=== PATIENT | female | born 2000 | race Caucasian/White ===

== ENCOUNTER 2023-12-13 17:51 | Emergency (ER) | payer OTHER, SELFPAY ==
[2023-12-13 17:55] VITALS: BP 166/96; PULSE 86; TEMP 37.2; O2SAT 100; BMI 37.2
--- NOTE | 2023-12-13 18:08 | ECG_ITS ---
The 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
--- NOTE | 2023-12-13 18:31 | XR_ITS ---
The [address] [address] Patient Name: ROSETTE ALBA MRN: [id number] date: 2000 Sex: F Assigned Patient Location: ER Current Patient Location: ED.MAIN Accession/Order Number: [id number] Exam Date: 12/13/2023 18:52 Report Date: 12/13/2023 20:00 At the request of: ALICE VAZQUEZ Procedure: XR chest 2V EXAM: XR chest 2V HISTORY: pain COMPARISON: None. TECHNIQUE: Upright PA and lateral chest x-ray FINDINGS: The heart is not enlarged and the vasculature is not distended. No acute infiltrate, effusion or pneumothorax is identified. The osseous structures are grossly intact. XR/XR chest 2V IMPRESSION: No acute infiltrate or evidence of cardiac decompensation. Electronically authenticated by: ANGELA CH Date: 12/13/2023 20:00
--- NOTE | 2023-12-13 19:26 | ED_ITS ---
HPI - Chest Pain General Chief Complaint: Chest Pain Stated Complaint: CHEST PAIN Time Seen by Provider: 12/13/23 18:20 Source: patient Mode of arrival: walk-in Limitations: no limitations History of Present Illness HPI narrative: This 23-year-old female presents for evaluation of left chest pain that started approximately 7 hours ago. It is midsternal in nature and she states it radiates into her back. She is not having any nausea or vomiting. She has not taken anything for pain. She denies any fever or cough. She denies tobacco use. She states that the pain started in her pelvis 3 weeks ago but that pain has resolved. She is currently on her menstrual period and recently finished her menstrual period. She denies the possibility of . She has no specific abdominal pain. She denies any dizziness or syncope. Related Data Allergies Allergy/AdvReac Type Severity Reaction Status Date / Time No Known Drug Allergies Allergy Verified 12/13/23 17:55 Review of Systems ROS Status of ROS 10 or more systems reviewed and unremark able except as noted in history and below PFSH PFSH Social History Little interest or pleasure in doing things: not at all Feeling down, depressed, or hopeless: not at all Exam Narrative Exam Narrative: Vital signs and Nursing Notes reviewed: Patient is afebrile with a normal pulse, blood pressure is elevated at 166/96, she is not hypoxic with pulse ox of 100% on room air General: Awake, alert, oriented, no acute distress, lying comfortably on the stretcher HEENT: Normocephalic atraumatic, mucous membranes are moist and pink, eyes are clear, normal conjunctiva, vision is grossly intact Neck: Supple, no meningeal signs, no anterior or posterior cervical lymphadenopathy Chest: Lungs are clear to auscultation with good air entry, there is no wheezing rhonchi or rales appreciated no accessory muscle use, patient is speaking in complete sentences-no chest wall tenderness to palpation CVS: Regular rate and rhythm S1-S2, no murmurs rubs or gallops, pulses are brisk and equal bilaterally, mild tenderness to palpation of the anterior chest wall ABD: Soft, nondistended, mild tenderness in the right lower quadrant with no rebound guarding rigidity, negative Rovsing sign Extremities: Moving all extremities, no lower extremity tenderness or swelling noted, negative Homans' sign, pulses are brisk and equal bilaterally Skin: Normal in appearance without rash,pallor, petechiae or purpura Neuro: No focal deficits Constitutional Vital Signs, click to edit/add: Last Vital Signs Temp 98.9 F 12/13/23 17:55 Pulse 86 12/13/23 17:55 Resp 18 12/13/23 17:55 BP 166/96 H 12/13/23 17:55 Pulse Ox 100 12/13/23 17:55 O2 Del Method Room Air 12/13/23 17:55 Course Vital Signs Vital signs: Vital Signs Temperature 98.9 F 12/13/23 17:55 Pulse Rate 86 12/13/23 17:55 Respiratory Rate 18 12/13/23 17:55 Blood Pressure 166/96 H 12/13/23 17:55 Pulse Oximetry 100 12/13/23 17:55 Oxygen Delivery Method Room Air 12/13/23 17:55 Temperature 98.9 F 12/13/23 17:55 Pulse Rate 86 12/13/23 17:55 Respiratory Rate 18 12/13/23 17:55 Blood Pressure 166/96 H 12/13/23 17:55 Pulse Oximetry 100 12/13/23 17:55 Oxygen Delivery Method Room Air 12/13/23 17:55 MDM - Chest Pain MDM Narrative Medical decision making narrative: This 23-year-old female, non-smoker presents for evaluation of midsternal chest pain. She states that 3 weeks ago she had pelvic pain which is mostly resolved. She still has some mild right lower quadrant pain but her abdomen is soft. She states her chest pain started earlier today. She has mild shortness of breath. She denies any fever or cough. EKG done upon arrival was a sinus rhythm with no acute changes. She was given a dose of aspirin and a GI cocktail with mild clinical improvement. Cardiac workup including CBC with differential, comprehensive metabolic profile, D-dimer and troponin was ordered as well as a chest x-ray. Her workup is normal. She is hemodynamically stable. I explained to her I suspect her symptoms are more likely GI related than related to a cardiac issue. She will be discharged home with a prescription for Pepcid. I encouraged her to avoid caffeine and hot spicy food for the next several days, drink plenty of fluids and follow-up closely with her family physician. She is in agreement with this plan. Medical Records Data Medical records narrative: The [address] [address] XRay Report Signed Patient: ROSETTE ALBA MR#: [id number] : 2000 Acct:[id number] Age/Sex: 23 / F ADM Date: 12/13/23 Loc: ER Attending Dr: Ordering Physician: Alice Royal Date of Service: 12/13/23 Procedure(s): XR chest 2V Accession Number(s): [id number] cc: OBDULIA MICHELLE ; Alice Royal~ The [address] [address] Patient Name: ROSETTE ALBA MRN: [id number] date: 2000 Sex: F Assigned Patient Location: ER Current Patient Location: ED.MAIN Accession/Order Number: [id number] Exam Date: 12/13/2023 18:52 Report Date: 12/13/2023 20:00 At the request of: ALICE ROYAL Procedure: XR chest 2V EXAM: XR chest 2V HISTORY: pain COMPARISON: None. TECHNIQUE: Upright PA and lateral chest x-ray FINDINGS: The heart is not enlarged and the vasculature is not distended. No acute infiltrate, effusion or pneumothorax is identified. The osseous structures are grossly intact. XR/XR chest 2V IMPRESSION: No acute infiltrate or evidence of cardiac decompensation. Electronically authenticated by: ANGELA CH Date: 12/13/2023 20:00 Lab Data Labs: Lab Results 12/13/23 Range/Units 19:40 WBC 9.4 (4.0-11.0) 10^3/uL RBC 4.57 (4.20-5.40) 10^6/uL Hgb 12.7 (12.0-16.0) g/dL Hct 38.2 (36.0-48.0) % MCV 83.6 (81.0-99.0) fL MCH 27.8 (26.7-34.0) pg MCHC 33.2 (29.9-35.2) g/dL RDW 14.2 (11.0-15.0) % Plt Count 252 (150-450) 10^3/uL MPV 10.9 (9.5-13.5) fL Neut % (Auto) 67.3 (43.0-75.0) % Lymph % (Auto) 24.9 (20.5-60.0) % [place] % (Auto) 6.2 (1.7-12.0) % Eos % (Auto) 1.1 (0.9-7.0) % Baso % (Auto) 0.2 (0.2-2.0) % Neut # (Auto) 6.3 (1.4-6.5) 10^3/uL Lymph # (Auto) 2.3 (1.2-3.8) 10^3/uL [place] # (Auto) 0.6 (0.3-0.8) 10^3/uL Eos # (Auto) 0.1 (0.0-0.7) 10^3/uL Baso # (Auto) 0.0 (0.0-0.1) 10^3/uL Abs Immat Gran (auto) 0.03 (0.00-0.03) 10^3/uL Imm/Tot Granulo (auto) 0.3 (0.0-0.5) % D-Dimer 0.22 (<=0.59) mg/L FEU Sodium 141 (136-145) mmol/L Potassium 4.2 (3.5-5.1) mmol/L Chloride 104 (98-107) mmol/L Carbon Dioxide 26.8 (21.0-32.0) mmol/L Anion Gap 14.4 BUN 17.0 (7.0-18.0) mg/dL Creatinine 0.97 (0.55-1.02) mg/dL Est GFR ( Amer) >60 (>=60 mL/min/1.73m^2) Est GFR (Non-Af Amer) >60 (>=60 mL/min/1.73m^2) BUN/Creatinine Ratio 17.5 Glucose 98 (74-106) mg/dL Calcium 9.3 (8.5-10.1) mg/dL Total Bilirubin 0.4 (0.2-1.0) mg/dL AST 20 (15-37) U/L ALT 20 (14-59) U/L Alkaline Phosphatase 97 (46-116) U/L Troponin I High Sens <4.0 L (4.0-51.3) pg/mL Total Protein 7.5 (6.4-8.2) g/dL Albumin 3.4 (3.4-5.0) g/dL Globulin 4.1 g/dL Albumin/Globulin Ratio 0.8 ECG Data Attestation: I personally reviewed and interpreted this ECG as follows: (Sinus rhythm 84 bpm, normal axis, normal intervals, no acute ST segment elevation or T wave inversion) Heart Score History: Slightly/Non-Suspicious ECG: Normal Age: <45 years Risk Factors: No Risk Factors Troponin: <Normal Limit Total Heart Score Recommendations & Risks:: 0 Discharge Plan Discharge Chief Complaint: Chest Pain Clinical Impression: Atypical chest pain Patient Disposition: Home, Self-Care Time of Disposition Decision: 20:34 Condition: Good Print Language: Libyan Instructions: Noncardiac Chest Pain (ED) Referrals: OBDULIA MICHELLE [Primary Care Provider] - 1 week
[2023-12-13] MEDS: ASPIRIN 81 MG TAB.CHEW 324 MG PO (19:46)
[2023-12-13] MEDS: lidocaine HCL 15 ML, MAG HYDROX/ALUMINUM HYD/SIMETH 30 ML, HYOSCYAMINE SULFATE 0.25 MG PO (19:46)
[2023-12-13 19:55] LABS: Basophils Percent Auto 0.2 % (0.2-2.0); Eosinophils Absolute Auto 0.1 10^3/uL (0.0-0.7); Eosinophils Percent Auto 1.1 % (0.9-7.0); Hematocrit 38.2 % (36.0-48.0); Hemoglobin 12.7 g/dL (12.0-16.0); Immature Granulocytes Abs Auto 0.03 10^3/uL (0.00-0.03); Immature Granulocytes Pct Auto 0.3 % (0.0-0.5); Lymphocytes Absolute Auto 2.3 10^3/uL (1.2-3.8); Lymphocytes Percent Auto 24.9 % (20.5-60.0); Mean Corpuscular HGB Conc 33.2 g/dL (29.9-35.2); Mean Corpuscular Hemoglobin 27.8 pg (26.7-34.0); Mean Corpuscular Volume 83.6 fL (81.0-99.0); Mean Platelet Volume 10.9 fL (9.5-13.5); Monocytes Absolute Auto 0.6 10^3/uL (0.3-0.8); Monocytes Percent Auto 6.2 % (1.7-12.0); Neutrophils Absolute Auto 6.3 10^3/uL (1.4-6.5); Neutrophils Percent Auto 67.3 % (43.0-75.0); Platelet Count 252 10^3/uL (150-450); Red Blood Count 4.57 10^6/uL (4.20-5.40); Red Cell Distribution Width 14.2 % (11.0-15.0); White Blood Count 9.4 10^3/uL (4.0-11.0)
[2023-12-13 20:09] LABS: D Dimer 0.22 mg/L FEU (<=0.59)
[2023-12-13 20:10] LABS: Anion Gap 14.4
[2023-12-13 20:12] LABS: Alanine Aminotransferase 20 U/L (14-59); Albumin Globulin Ratio 0.8; Albumin Level 3.4 g/dL (3.4-5.0); Alkaline Phosphatase 97 U/L (46-116); Aspartate Amino Transferase 20 U/L (15-37); BUN Creatinine Ratio 17.5; Bilirubin Total 0.4 mg/dL (0.2-1.0); Calcium 9.3 mg/dL (8.5-10.1); Carbon Dioxide 26.8 mmol/L (21.0-32.0); Chloride 104 mmol/L (98-107); Estimated GFR (African America >60 (>=60 mL/min/1.73m^2); Estimated GFR (Non-African Ame >60 (>=60 mL/min/1.73m^2); Globulin 4.1 g/dL; Glucose 98 mg/dL (74-106); Potassium 4.2 mmol/L (3.5-5.1); Sodium 141 mmol/L (136-145); Total Protein 7.5 g/dL (6.4-8.2); Troponin I High Sensitivity <4.0 pg/mL (4.0-51.3)
== END 2023-12-13 20:48 | disposition home or self-care (01) ==
PROVIDERS: Emergency Provider Emergency Medicine; PCP Family Medicine
DX: R07.89 Other chest pain (principal)
CPT/HCPCS: 36415; 71046; 80053; 84484; 85025; 85378; 93005; 99285

== ENCOUNTER 2024-01-06 09:48 | Outpatient (OUT) | payer OTHER, SELFPAY ==
--- NOTE | 2024-01-06 09:52 | US_ITS ---
[address] [address] Patient Name: ROSETTE ALBA MRN: [id number] date: 2000 Sex: F Assigned Patient Location: Current Patient Location: Accession/Order Number: [id number] Exam Date: 01/06/2024 10:00 Report Date: 01/07/2024 04:45 At the request of: LILIANE KOVACS Procedure: US OB transvaginal EXAMINATION: US OB transvaginal HISTORY: Missed menses, Bleeding In Early COMPARISON: No relevant comparison available. FINDINGS: GESTATIONAL SAC: Present YOLK SAC: Present POLE: Present CARDIAC: Present. UTERUS: Normal size and appearance. OVARIES: Right: Corpus lutein cyst. Left: Normal. CERVIX: Closed, but length not measured.. CUL-DE-SAC: Normal. OTHER: None. AGE BY LMP: 6 weeks 4 days LYNDSAY BY LMP: 08/27/2024 AGE BY US CRL: 6 weeks 1 day LYNDSAY BY US CRL: 08/30/2024 US/US OB transvaginal IMPRESSION: 1. Single live intrauterine . Electronically authenticated by: OBDULIA EMERY Date: 01/07/2024 04:45
--- OUTSIDE RECORDS SUMMARY | 2024-01-06 10:05 | XMS_ITS | CCD ---
Author Organization [facility] Care Team Providers Care Loadmaster Name Role Phone SOFÍA SHARLA Admitting Unavailable EBWANDA SHARLA Attending Unavailable OBDULIA ONEIL Referring Unavailable OBDULIA ONEIL Primary Care Unavailable GA Procedure Practitioner Unavailab SHARLA Singh Surgeon Unavailable GA Procedure Practitioner Unavailab AREN Ferguson Surgeon Unavailable DO Obdulia Oneil Primary Care Provider DO Radha Molina Attending Provider [phone] MD Jennie Smith Admit Provider MD Jennie Smith Attending Provider Spasic, TANGLED YARN WORKER-C Nataly Torres Attending Provider Spasic, TANGLED YARN WORKER-C Nataly Torres Primary Care Provider [phone] DO Marcello Hudson Attending Provider CORRINA DHALIWAL Attending Unavailable CORRINA DHALIWAL Consulting Unavailable REQUEST, NONE LISTED Primary Care Unavaila ble CORRINA DHALIWAL Admitting Unavailable FINA .YNES Consulting Unavailjanie JOHNSON ., DR SIMENTAL Admitting Unavailable REQUEST, NONE LISTED Primary Care Unavaila ramona JOHNSON ., DR SIMENTAL Attending Unavailable HAY ., DR SIMENTAL Consulting Unavailable PETRA SALCIDO Consulting Unavailable MARKER ., DR DOLL Admitting Unavailable MARKER ., DR DOLL Attending Unavailable MARKER ., DR DOLL Consulting Unavailable REQUEST, NONE LISTED Primary Care Unavaila ble NANCI COULTER Consulting Unavailable CORRINA DHALIWAL Attending Unavailable CORRINA DHALIWAL Consulting Unavailable REQUEST, NONE LISTED Primary Care Unavaila CORRINA Cuevas Admitting Unavailable PILI MIGUEL Consulting Unavailable BETHANIE ., DR MOMIN Admitting Unavailable BETHANIE ., DR MOMIN Attending Unavailable BETHANIE ., DR MOMIN Consulting Unavailable REQUEST, NONE LISTED Primary Care Unavaila ble Spasic, TANGLED YARN WORKER-C Nataly E Primary Care Provider DO Mary Kay Cantu Attending Provider MD Jennie Smith Attending Provider CADE Ortiz Emergency Provider [phone] Spasic, TANGLED YARN WORKER-C Nataly E Attending Provider [facility] Primary Care Prov ider Rinkes, DO Radha Attending Provider Spasic, TANGLED YARN WORKER-C Nataly E Primary Care Provider DO Mary Kay Cantu Attending Provider MD Jennie Smith Attending Provider CADE Ortiz Emergency Provider Spasic, TANGLED YARN WORKER-C Nataly E Attending Provider [facility] Primary Care Prov ider Rinlana, DO Radha Attending Provider NO FAMILY, PHYSICIAN Primary Care Provider Unava ilable MD Ede Olvera Admit Provider MD Ede Olvera Attending Provider Spasic, TANGLED YARN WORKER-C Nataly E Primary Care Provider DO Mary Kay Cantu Attending Provider Spasic, TANGLED YARN WORKER-C Nataly E Attending Provider Rinkes, DO Radha Attending Provider [phone] [facility] Prov ider RINKES, RADHA E Attending Unavailable RINKES, RADHA E Referring Unavailable RINKES, RADHA E Attending Unavailable RINKES, RADHA E Attending Unavailable RINKES, RADHA E Attending Unavailable RINKES, RADHA E Referring Unavailable EDE OLVERA Referring Unavailable RINKES, RADHA E Attending Unavailable RINKES, RADHA E Referring Unavailable RINKES, RADHA E Attending Unavailable RINKES, RADHA E Referring Unavailable RINKES, RADHA E Attending Unavailable RINKES, RADHA E Referring Unavailable RINKES, RADHA E Attending Unavailable RINKES, RADHA E Attending Unavailable RINKES, RADHA E Referring Unavailable Spasic, TANGLED YARN WORKER-C Nataly E Attending Provider Spasic, TANGLED YARN WORKER-C Nataly E Primary Care Provider [phone] DO Carmelo Vinson Emergency Provider RANDALL Leon Emergency Provider Spasic, TANGLED YARN WORKER-C Nataly E Referring Provider CADE Arceo Attending Provider Spasic, Nataly E Primary Care Unavailable Rinkes, Radha Admitting Unavailable Rinkes, Radha Attending Unavailable Rinkes, Radha Attending Unavailable Rinkes, Radha Admitting Unavailable NO FAMILY, PHYSICIAN Primary Care Unavailable Spasic, Nataly E Referring Unavailable Spasic, Nataly E Primary Care Unavailable Melania Arceo Attending Unavail able AdenikebosMelania donis Admitting Unavail able Spasic, Nataly E Primary Care Unavailable Rinkes, Radha Admitting Unavailable Rinkes, Radha Attending Unavailable Spasic, Nataly E Attending Unavailable Spasic, Nataly E Admitting Unavailable Spasic, Nataly E Attending Unavailable Spasic, Nataly E Admitting Unavailable Spasic, Nataly E Primary Care Unavailable Rinkes, Radha Admitting Unavailable Rinkes, Radha Attending Unavailable Spasic, Nataly E Primary Care Unavailable Carmelo Vinson Admitting Unavailable Carmelo Vinson Attending Unavailable Spasic, Nataly E Primary Care Unavailable Carmelo Vinson Attending Unavailable Carmelo Vinson Admitting Unavailable Spasic, Nataly E Attending Unavailable Spasic, Nataly E Admitting Unavailable Spasic, Nataly E Primary Care Unavailable Spasic, Nataly E Primary Care Unavailable Devon Leon Attending Unavailable Devon Leon Admitting Unavailable Spasic, Nataly Torres Attending Unavailable Spasic, Nataly E Admitting Unavailable Spasic, Nataly E Attending Unavailable Spasic, Nataly E Admitting Unavailable [facility] U navailNataly Omer Consulting Unavailable Tino Felipe Attending Tino Vanessa Admitting Nataly Villela Primary Care Unavailable Ede Olvera Admitting Unavailable Ede Olvera Attending Unavailable Nataly Toure Primary Care Unavailable Mary Kay Cantu Admitting Unavailable Mary Kay Cantu Attending Unavailable Nataly Toure Primary Care Unavailable Radha Molina Admitting Unavailable Radha Molina Attending Unavailable Allergies Allergy Classification Reported Allergen(s) Allergy Type Date of Onset Reaction(s) Facility (1 source) 00676,00 Drug allergy (disorder) 07-01-2012 [facility] Medications Current Medications Medication Drug Class(es) Dates Sig (Normalized) Sig (Original) acetaminophen 325 mg / oxyCODONE hydrochloride 5 mg oral tablet (5 sources) Opioid Agonist Start: 09-26-2023 take 1 tablet by mouth every six hours Oxycodone-Acetami nophen (Percocet) 5-325 mg tablet Active 1 TAB PO Q6H 11 17September 26, 2023 ALPRAZolam 0.25 mg oral tablet (1 source) Benzodiazepine Start: 10-20-2023 Alprazolam Active 0.25 MG PO As Directed October 20, 2023 12:00am ferrous sulfate 325 mg delayed release oral tablet (1 source) Start: 10-20-2023 take 325 mg by mouth once daily Ferrous Sulfate Active 325 MG PO Daily October 20, 2023 12:00am 3 ml liraglutide 6 mg/ml pen injector (20 sources) GLP-1 Receptor Agonist Start: 10-20-2023 Liraglutide (Victoza 2-Eric) 0.6 mg/0.1 mL (18 mg/3 mL) pen injector Active 1.2 MG SUBCUT Daily October 20, 2023 12:00am Start: 06-23-2022 End: 11-19-2022 Liraglutide (Victoza 2-Eric) 0.6 mg/0.1 mL (18 mg/3 mL) pen injector Discontinued 0.6 MG SUBCUT Daily June 23, 2022 12:00am November 19, 2022 12:21pm lisdexamfetamine dimesylate 40 mg oral capsule (1 source) Central Nervous System Stimulant Start: 10-20-2023 take 1 capsule by mouth once daily Lisdexamfetamine (Vyvanse) 40 mg capsule Active 40 MG PO Daily October 20, 2023 12:00am venlafaxine 100 mg oral tablet (20 sources) Serotonin and Norepinephrine Reuptake Inhibitor Start: 10-20-2023 take 50 mg by mouth twice daily Venlafaxine Active 50 MG PO Twice daily October 20, 2023 12:00am Start: 06-23-2022 End: 11-19-2022 take 37.5 mg by mouth once daily at bedtime Venlafaxine Discontinued 37.5 MG PO Daily at bedtime June 23, 2022 12:00am November 19, 2022 12:21pm Completed/Discontinued Medications Medication Drug Class(es) Dates Sig (Normalized) Sig (Original) acetaminophen 325 mg / HYDROcodone bitartrate 5 mg oral tablet (20 sources) Opioid Agonist Start: 06-01-2017 End: 10-23-2017 take 2 tablets by mouth every four hours Hydrocodone-Acetam inophen ([place]) 5-325 mg tablet Discontinued 2 TAB PO Q4H June 01, 2017 October 23, 2017 2:43pm amoxicillin 500 mg / clavulanate 125 mg oral tablet (20 sources) Penicillin-class Antibacterial Start: 03-02-2018 End: 04-13-2018 take 1 tablet by mouth twice daily Amoxicillin-Pot Clavulanate (Augmentin) 500-125 mg Tablet Discontinued 1 TAB PO Twice daily March 02, 2018 1:00am April 13, 2018 8:29pm Start: 11-15-2017 End: 11-22-2017 take 1 tablet by mouth twice daily Amoxicillin-Pot Clavulanate (Augmentin) 875-125 mg tablet Discontinued 1 TAB PO Twice daily 14 November 15, 2017 12:00am November 22, 2017 12:01am benzonatate 100 mg oral capsule (20 sources) Non-narcotic Antitussive Start: 02-27-2019 End: 05-10-2020 take 1 capsule by mouth three times daily Benzonatate (Tessalon Perles) 100 mg capsule Discontinued 100 MG PO Three times daily February 27, 2019 1:00am May 10, 2020 7:38pm cephalexin 500 mg oral capsule (20 sources) Cephalosporin Antibacterial Start: 09-26-2023 End: 10-20-2023 take 500 mg by mouth every eight hours Cephalexin Discontinued 500 MG PO Q8H 15 September 26, 2023 12:00am October 20, 2023 8:30am Start: 11-07-2017 End: 11-15-2017 take 2 capsules by mouth twice daily Cephalexin (Keflex) 500 mg capsule Discontinued 1000 MG PO Twice daily 40 November 07, 2017 12:00am November 15, 2017 4:03pm docusate sodium 100 mg oral capsule (20 sources) Start: 01-09-2021 End: 06-23-2022 take 1 capsule by mouth once daily Docusate Sodium (Colace) 100 mg capsule Discontinued 100 MG PO Daily October 18, 2021 12:00am June 23, 2022 12:52pm escitalopram 5 mg oral tablet (20 sources) Serotonin Reuptake Inhibitor Start: 01-03-2017 End: 03-20-2017 take 5 mg by mouth once daily Escitalopram Oxalate Discontinued 5 MG PO Daily January 03, 2017 1:00am March 20, 2017 1:01pm 168 hr ethinyl estradiol 0.64773 mg/hr / norelgestromin 0.06751 mg/hr transdermal system (20 sources) Progestin, Estrogen Start: 06-23-2022 End: 11-19-2022 Norelgestromin-Ethin. Estradiol (Zafemy) 150-35 mcg/24 hr patch weekly Discontinued 1 PATCH TOPICAL every week June 23, 2022 12:00am November 19, 2022 12:21pm fenofibrate 145 mg oral tablet (20 sources) Peroxisome Proliferator Receptor alpha Agonist Start: 06-23-2022 End: 11-19-2022 take 1 tablet by mouth once daily Fenofibrate Nanocrystallized (Tricor) 145 mg Tablet Discontinued 145 MG PO Daily June 23, 2022 12:00am November 19, 2022 12:21pm hydrOXYzine pamoate 25 mg oral capsule (20 sources) Antihistamine Start: 06-23-2022 End: 11-19-2022 Hydroxyzine Pamoate (Vistaril) 25 mg Capsule Discontinued 25 MG PO As Directed June 23, 2022 12:00am November 19, 2022 12:21pm ibuprofen 800 mg oral tablet (20 sources) Nonsteroidal Anti-inflammatory Drug Start: 10-18-2021 End: 06-23-2022 take 800 mg by mouth four times daily Ibuprofen Discontinued 800 MG PO Four times daily October 18, 2021 12:00am June 23, 2022 12:52pm Start: 01-09-2021 End: 10-18-2021 take 600 mg by mouth every six hours Ibuprofen Discontinued 600 MG PO Q6H 60 January 09, 2021 1:00am October 18, 2021 5:02am Start: 01-03-2017 End: 03-20-2017 Ibuprofen Discontinued 600 M G PO Every 6 hours January 03, 2017 1:00am March 20, 2017 1:01pm do not exceed 4 doses in a 24 hour period 3 ml insulin isophane, human 100 unt/ml pen injector (20 sources) Start: 01-09-2021 End: 01-10-2021 inject 10 [IU] by subcutaneous injection twice daily Insulin Nph Isoph U-100 Human (Novolin N Flexpen) 100 unit/mL (3 mL) Insulin Pen Discontinued 10 UNIT SUBCUT Twice daily January 09, 2021 1:00am January 10, 2021 3:22pm levothyroxine sodium 0.025 mg oral tablet (20 sources) l-Thyroxine Start: 10-23-2017 End: 11-07-2017 take 25 ug by mouth once daily Levothyroxine Discontinued 25 MCG PO Daily October 23, 2017 12:00am November 07, 2017 8:54pm lidocaine 0.05 mg/mg medicated patch (20 sources) Antiarrhythmic, Amide Local Anesthetic Start: 09-26-2023 End: 10-20-2023 apply 1 dose topically every twenty-four hours Lidocaine Discontinued 1 PATCH TOPICAL Q24H September 26, 2023 12:00am October 20, 2023 8:31am leave on most painful area for up to 12 hrs Start: 05-10-2020 End: 01-08-2021 apply 1 dose topically every twenty-four hours Lidocaine Discontinued 1 PATCH TOPICAL Q24H May 10, 2020 12:00am January 08, 2021 10:30pm leave on most painful area for up to 12 hrs methocarbamol 750 mg oral tablet (20 sources) Muscle Relaxant Start: 09-26-2023 End: 10-20-2023 take 750 mg by mouth three times daily Methocarbamol Discontinued 750 MG PO Three times daily September 26, 2023 12:00am October 20, 2023 8:31am Start: 05-10-2020 End: 01-08-2021 take 1 tablet by mouth three times daily Methocarbamol (Robaxin-750) 750 mg tablet Discontinued 750 MG PO Three times daily May 10, 2020 12:00am January 08, 2021 10:30pm methylPREDNISolone 4 mg oral tablet (20 sources) Corticosteroid Start: 09-26-2023 End: 10-20-2023 take 1 tablet by mouth once Methylprednisolone (Medrol (Eric)) 4 mg tablets,dose pack Discontinued 0 PO .COMPLEX September 26, 2023 12:00am October 20, 2023 8:31am orally per package directions Start: 05-10-2020 End: 01-08-2021 take 1 tablet by mouth once Methylprednisolone (Medrol (Eric)) 4 mg tablets,dose pack Discontinued 0 PO .COMPLEX May 10, 2020 12:00am January 08, 2021 10:36pm orally per package directions NIFEdipine 10 mg oral capsule (20 sources) Dihydropyridine Calcium Channel Aruna Start: 11-20-2022 End: 02-13-2023 take 10 mg by mouth four times daily Nifedipine Discontinued 10 MG PO Four times daily November 20, 2022 12:00am February 13, 2023 7:43pm [place]-3 Fatty Acids-Fish Oil (20 sources) Start: 06-23-2022 End: 11-19-2022 take 1 capsule by mouth once daily [place]-3 Fatty Acids-Fish Oil Discontinued 1 CAP PO Daily June 22, 2022 11:00pm November 19, 2022 11:22am Start: 06-23-2022 End: 11-19-2022 take 1 capsule by mouth once daily [place]-3 Fatty Acids-Fish Oil Discontinued 1 CAP PO Daily June 23, 2022 12:00am November 19, 2022 12:22pm Start: 06-23-2022 take 1 capsule by mo [facility] once daily [place]-3 Fatty Acids-Fish Oil Active 1 CAP PO Daily June 23, 2022 12:00am ondansetron 4 mg disintegrating oral tablet (20 sources) Serotonin-3 Receptor Antagonist Start: 02-27-2019 End: 05-10-2020 take 4 mg by mouth every eight hours Ondansetron Discontinued 4 MG PO Q8H 9 February 27, 2019 1:00am May 10, 2020 7:38pm Start: 11-15-2017 End: 03-02-2018 take 1 tablet by mouth every six hours Ondansetron (Zofran Odt) 4 mg tablet,disintegrating Discontinued 4 MG PO Q6H November 15, 2017 12:00am March 03, 2018 12:40am Start: 06-06-2017 End: 06-09-2017 take 1 tablet by mouth three times daily Ondansetron (Zofran Odt) 4 mg tablet,disintegrating Discontinued 4 MG PO Three times daily 10 June 06, 2017 12:00am June 09, 2017 12:01am Start: 06-01-2017 End: 06-06-2017 take 1 tablet by mouth every eight hours Ondansetron (Zofran Odt) 8 mg tablet,disintegrating Discontinued 8 MG PO Q8H June 01, 2017 12:00am June 06, 2017 3:30pm Pnv Cmb#95-Ferrous Fumarate-Fa () 28 mg iron- 800 mcg Tablet (20 sources) Start: 11-07-2017 End: 01-22-2019 take 1 tablet by mouth once daily Pnv Cmb#95-Ferrous Fumarate-Fa () 28 mg iron- 800 mcg Tablet Discontinued 1 TAB PO Daily November 06, 2017 11:00pm January 22, 2019 2:11am Start: 11-07-2017 End: 01-22-2019 take 1 tablet by mouth once daily Pnv Cmb#95-Ferrous Fumarate-Fa () 28 mg iron- 800 mcg Tablet Discontinued 1 TAB PO Daily November 07, 2017 12:00am January 22, 2019 3:11am predniSONE 20 mg oral tablet (20 sources) Start: 11-07-2017 End: 11-12-2017 take 40 mg by mouth once daily Prednisone Discontinued 40 MG PO Daily 10 November 07, 2017 12:00am November 12, 2017 12:01am Xkmchmvx-Asc-Kw-Fa () 1 mg Tablet (20 sources) Start: 11-19-2022 End: 02-13-2023 take 1 tablet by mouth once daily Mwbuapis-Iel-Ub-Fa () 1 mg Tablet Discontinued 1 TAB PO Daily November 19, 2022 12:00am February 13, 2023 7:43pm Start: 11-19-2022 End: 02-13-2023 take 1 tablet by mouth once daily Chjfwdxu-Wlb-Jx-Fa () 1 mg Tablet Discontinued 1 TAB PO Daily November 18, 2022 11:00pm February 13, 2023 6:43pm Start: 11-19-2022 take 1 tablet by long th once daily Qzrqlsry-Zwl-Zl-Fa () 1 mg Tablet Active 1 TAB PO Daily November 18, 2022 11:00pm Start: 11-19-2022 take 1 tablet by long th once daily Gdslgajo-Pvo-Ki-Fa () 1 mg Tablet Active 1 TAB PO Daily November 19, 2022 12:00am progesterone 200 mg oral capsule (20 sources) Progesterone Start: 11-19-2022 End: 02-13-2023 take 200 mg by mouth once daily at bedtime Progesterone Micronized Discontinued 200 MG PO Daily at bedtime November 19, 2022 12:00am February 13, 2023 7:43pm traMADol hydrochloride 50 mg oral tablet (20 sources) Opioid Agonist Start: 06-29-2022 End: 11-19-2022 take 50 mg by mouth every six hours Tramadol Discontinued 50 MG PO Q6H 30 7 June 29, 2022 12:00am November 19, 2022 12:21pm traZODone hydrochloride 50 mg oral tablet (20 sources) Serotonin Reuptake Inhibitor Start: 06-23-2022 End: 11-19-2022 take 50 mg by mouth once daily at bedtime Trazodone Discontinued 50 MG PO Daily at bedtime June 23, 2022 12:00am November 19, 2022 12:21pm Start: 01-03-2017 End: 03-20-2017 take 50 mg by mouth once daily Trazodone Discontinued 50 MG PO Daily January 03, 2017 1:00am March 20, 2017 1:01pm Problems Active Problems Problem Classification Problem Date Documented Date Episodic/Chronic Biliary tract disease (20 sources) Calculus of bile duct without cholangitis or cholecystitis without obstruction; Translations: [Cholecystitis] Onset: 06-04-2022 06-29-2022 Episodic Deficiency and other anemia (1 source) Iron deficiency anemia secondary to blood loss (chronic); Translations: [Iron deficiency anemia secondary to blood loss (chronic)] Onset: 11-03-2023 Chronic Deficiency and other anemia (1 source) Iron deficiency anemia; Translations: [Iron deficiency anemia, unspecified] 10-20-2023 Episodic Deficiency and other anemia (1 source) Iron deficiency anemia, unspecified; Translations: [Iron deficiency anemia, unspecified] 10-20-2023 Episodic Disorders of lipid metabolism (3 sources) Pure hypercholesterolemia, unspecified; Translations: [Pure hyperglyceridemia] Onset: 06-04-2022 Chronic Genitourinary symptoms and ill-defined conditions (1 source) Hematuria, unspecified; Translations: [Hematuria, unspecified] Onset: 10-04-2023 Episodic Headache; including migraine (1 source) Headache; including migraine; Translations: [HEADACHE UNSPECIFIED] Onset: 09-03-2021 Immunizations and screening for infectious disease (20 sources) Contact with and (suspected) exposure to other viral communicable diseases; Translations: [Exposure to influenza] 02-27-2019 Episodic Lymphadenitis (1 source) Generalized enlarged lymph nodes; Translations: [Generalized enlarged lymph nodes] Onset: 09-30-2023 Episodic Mood disorders (20 sources) Depressive disorder; Translations: [Depression] 02-15-2019 Chronic Other complications of (1 source) Other specified related conditions, first trimester; Translations: [OTH SPEC PREG RELATED COND 1ST TRI] Onset: 07-14-2022 Episodic Other female genital disorders (20 sources) H/O: normal delivery; Translations: [Status post normal vaginal delivery] 01-09-2021 Episodic Other lower respiratory disease (1 source) Shortness of breath; Translations: [Shortness of breath] Onset: 09-30-2023 Episodic Other nervous system disorders (1 source) Other chronic pain; Translations: [OTHER CHRONIC PAIN] Onset: 03-17-2022 Chronic Other nutritional; endocrine; and metabolic disorders (1 source) Obesity, unspecified; Translations: [Obesity, unspecified] Onset: 03-04-2023 Chronic Other upper respiratory infections (20 sources) Viral pharyngitis; Translations: [Acute pharyngitis, unspecified] 01-22-2019 Episodic Ovarian cyst (20 sources) Cyst of ovary; Translations: [Unspecified ovarian cyst, unspecified side] 06-01-2017 Episodic Residual codes; unclassified (20 sources) Gestation period, 33 weeks; Translations: [33 weeks gestation of ] 10-18-2021 Episodic Residual codes; unclassified (1 source) 33 weeks gestation of ; Translations: [ state, incidental] 10-18-2021 Episodic Residual codes; unclassified (1 source) Acquired absence of other specified parts of digestive tract; Translations: [ACQ ABSENCE OTH PART DIGESTV TRACT] Onset: 07-14-2022 Episodic Residual codes; unclassified (1 source) Weeks of gestation of not specified; Translations: [WEEKS GESTATION NOT SPEC] Onset: 07-14-2022 Episodic Residual codes; unclassified (10 sources) Gestation period, 35 weeks; Translations: [35 weeks gestation of ] 02-13-2023 Episodic Residual codes; unclassified (3 sources) 35 weeks gestation of ; Translations: [ state, incidental] 02-13-2023 Episodic Spondylosis; intervertebral disc disorders; other back problems (6 sources) Disorder of lumbar disc; Translations: [Other intervertebral disc degeneration, lumbar region] Onset: 09-26-2023 09-26-2023 Chronic Sprains and strains (20 sources) Low back strain; Translations: [Strain of muscle, fascia and tendon of lower back, initial encounter] 05-10-2020 Episodic Thyroid disorders (1 source) Hypothyroidism, unspecified; Translations: [Hypothyroidism, unspecified] Onset: 08-03-2023 Chronic Unclassified (3 sources) LOW BACK PAIN, UNSPECIFIED; Translations: [LOW BACK PAIN, UNSPECIFIED] Onset: 03-17-2022 Unclassified (2 sources) COUGH, UNSPECIFIED; Translations: [COUGH, UNSPECIFIED] Onset: 08-11-2021 Unclassified (1 source) Low back pain, unspecified; Translations: [Low back pain, unspecified] Onset: 09-26-2023 Unclassified (1 source) labor without delivery, third trimester; Translations: [ labor without delivery, third trimester] Onset: 02-13-2023 Unclassified (1 source) False labor before 37 completed weeks of gestation, third trimester; Translations: [False labor before 37 completed weeks of gestation, third trimester] Onset: 02-01-2023 Unclassified (1 source) Encounter for screening for Streptococcus B; Translations: [Encounter for screening for Streptococcus B] Onset: 01-05-2023 Urinary tract infections (5 sources) Urinary tract infectious disease; Translations: [Urinary tract infection, site not specified] 09-26-2023 Episodic Viral infection (19 sources) Viral disease; Translations: [Viral infection, unspecified] 12-01-2022 Episodic Viral infection (1 source) COVID-19; Translations: [COVID-19] Onset: 08-11-2021 Past or Other Problems Problem Classification Problem Date Documented Da te Episodic/Chronic Abdominal pain (20 sources) Acute pelvic pain; Translations: [Pelvic and perineal pain] Onset: 06-03-2022 01-03-2017 Episodic Diabetes or abnormal glucose tolerance complicating ; childbirth; or the puerperium (1 source) Abnormal glucose complicating ; Translations: [Abnormal glucose complicating ] Onset: 12-22-2022 Episodic Early or threatened labor (1 source) labor without delivery, unspecified trimester; Translations: [ labor without delivery, unspecified trimester] Onset: 01-21-2023 Episodic Nutritional deficiencies (2 sources) Iron deficiency; Translations: [Iron deficiency] Onset: 04-15-2023 Episodic Other complications of (4 sources) Other specified related conditions, second trimester; Translations: [OTH SPEC PREG RELATED COND 2ND TRI] Onset: 08-31-2021 Episodic Other complications of (1 source) Supervision of with history of pre-term labor, second trimester; Translations: [SUP PREG W/HX PRE-TERM LABR 2ND TRI] Onset: 09-03-2021 Episodic Other complications of (1 source) Supervision of with insufficient care, second trimester; Translations: [SUP PG INSUFF ANTENATL CARE 2ND TRI] Onset: 09-03-2021 Episodic Other complications of (1 source) Other viral diseases complicating , second trimester; Translations: [OTH VIRAL DZ COMP PREG SECOND TRI] Onset: 08-11-2021 Episodic Residual codes; unclassified (1 source) 25 weeks gestation of ; Translations: [25 WEEKS GESTATION OF ] Onset: 09-03-2021 Episodic Residual codes; unclassified (1 source) 20 weeks gestation of ; Translations: [20 WEEKS GESTATION OF ] Onset: 08-11-2021 Episodic Residual codes; unclassified (1 source) 27 weeks gestation of ; Translations: [27 weeks gestation of ] Onset: 12-22-2022 Episodic Unclassified (1 source) LOW BACK PAIN, UNSPECIFIED; Translations: [LOW BACK PAIN, UNSPECIFIED] Onset: 03-15-2022 Unclassified (1 source) COUGH, UNSPECIFIED; Translations: [COUGH, UNSPECIFIED] Onset: 08-08-2021 Results Test Name Value Interpretation Reference Range Facility [facility] 12-14-2023 Outside Records [id number] F [facility] Outside Records [id number] F [facility] US liver 10-07-2023 [facility] [place] [address] Ultrasound Report Signed Patient: Rosette Alba MR#: [id number] : 2000 Acct:[id number] Age/Sex: 23 / F ADM Date: 10/07/23 Loc: Room: Type: [facility] Attending Dr: Nataly BOND Ordering Provider: RONDA Reyes Date of Service: 10/07/23 US/US liver: High blood triglycerides Copies to: RONDA Reyes LIMITED ABDOMINAL ULTRASOUND: CLINICAL HISTORY: High blood triglycerides. COMPARISON: Gallbladder ultrasound 06/04/2022 TECHNIQUE: Grayscale and color Doppler images of the right upper quadrant organs were obtained. FINDINGS: Pancreas: Visualized portions appear unremarkable. Liver: Fatty infiltration without focal mass or intraductal ductal dilatation. Hepatopedal flow is seen within the portal vein. Gallbladder: Removed. CBD: 4 mm. US/US liver IMPRESSION: FATTY INFILTRATION OF LIVER WITHOUT ACUTE FINDINGS.. Impression dictated by: Richard Kirkland Jr., D.O.10/07/2023 11:25 AM Dictation Location: RADIO-PC-08 Tech: Marie Max Transcribed By: ANDREY 10/07/23 1125 Dictated By: Richard Kirkland Jr, DO 10/07/23 1123 Signed By: 10/07/23 1125 Normal [facility] US thyroidon 10-07-2023 US thyroid [facility] Main [place] [id number] Ultrasound Report Signed Patient: Rosette Alba MR#: [id number] : 2000 Acct:[id number] Age/Sex: 23 / F ADM Date: 10/07/23 Loc: Room: Type: [facility] Attending Dr: Nataly BOND Ordering Provider: RONDA Reyes Date of Service: 10/07/23 US/US thyroid: Hypothyroidism, unspecified type Copies to: RONDA Reyes Thyroid ultrasound Reason for exam: Hypothyroidism. Comparison: none Technique: Grayscale and color Doppler images of the thyroid gland were obtained. Findings: The right lobe measures 5.2 x 2.0 x 1.7 cm. The left lobe measures 5.5 x 1.4 x 1.4 cm. The isthmus measures 0.32 cm. A small colloid cyst is seen involving the inferior aspect of the right lobe. A hypoechoic nodule is seen involving the mid aspect of the left lobe measuring 11 x 6 x 6 mm. No microcalcifications. US/US thyroid Impression: Hypoechoic nodule involving the mid aspect of the left lobe 11 x 6 x 6 mm. Repeat ultrasound in one year suggested. Impression dictated by: Richard Kirkland Jr., D.OIdania10/07/2023 11:26 AM Dictation Location: RADIO-PC-08 Tech: Marie Max Transcribed By: ANDREY 10/07/23 1126 Dictated By: Richard Kirkland Jr, DO 10/07/23 1125 Signed By: 10/07/23 1126 Normal [facility] XR KUBon 10-07-20[address]R [address] [facility] Main [address] [address] XRay Report Signed Patient: Rosette Alba MR#: [id number] : 2000 Acct:[id number] Age/Sex: 23 / F ADM Date: 10/07/23 Loc: Room: Type: [facility] Attending Dr: Nataly BOND Copies to: RONDA Reyes Ordering Provider: RONDA Reyes Date of Service: 10/07/23 XR/XR KUB: Right flank pain KUB: CLINICAL INFORMATION: Recent UTI. Right flank pain and nausea for one month. COMPARISON: None FINDINGS: No suspicious urinary tract calcifications. A few phleboliths are seen within the pelvis. No free air. No bowel obstruction. XR/XR KUB IMPRESSION: No acute process. Impression dictated by: Richard Kirkland Jr., D.O.10/07/2023 8:50 AM Dictation Location: [place] [address] Transcribed By: [facility] 10/07/23 0850 Dictated By: Richard Kirkland Jr, DO 10/07/23 0849 Signed By: 10/07/23 0850 Normal [facility] Bacteria [Presence] in Urine by AutomatedOrdered By: Carmelo Vinson on 10-04-2023 Bacteria Auto Ql (U) None seen [HPF] None Seen [facility] Bilirubin Test strip Ql (U)O rdered By: Carmelo Vinson on 10-04-2023 Bilirubin Ql (U) Negative Negative [facility] Color of Urine by AutoOrdere d By: Carmelo Vinson on 10-04-2023 Color (U) Yellow Normal Yellow [facility] Comment on above: Order Comment: Name Collection Type:: Clean-Voided Midstream Performed By: #### A DDONUAPLUS, UHCG #### [address] Dipstick and Microscopicon 0 10-04-2023 Bacteria,Urine None Seen Normal None Seen [facility] Comment on above: Order Comment: Name Collection Type:: Clean-Voided Midstream Performed By: #### A DDONUAPLUS, UHCG #### [place] [address] [place] Bilirubin,Urine Negative Normal Negative [facility] Comment on above: Order Comment: Name Collection Type:: Clean-Voided Midstream Performed By: #### A DDONUAPLUS, UHCG #### [address] Glucose Ql (U) Normal Normal Normal [facility] Comment on above: Order Comment: Name Collection Type:: Clean-Voided Midstream Performed By: #### A DDONUAPLUS, UHCG #### [place] [address] [place] Hyaline Casts,Urine 0-8 Normal 0-8 [facility] Comment on above: Order Comment: Name Collection Type:: Clean-Voided Midstream Performed By: #### A DDONUAPLUS, UHCG #### [place] [address] [place] Mucus,Urine 4+ Critically abnormal [facility] Comment on above: Order Comment: Name Collection Type:: Clean-Voided Midstream Performed By: #### A DDONUAPLUS, UHCG #### [place] [address] [place] Nitrite,Urine Negative Normal Negative [facility] Comment on above: Order Comment: Name Collection Type:: Clean-Voided Midstream Performed By: #### A DDONUAPLUS, UHCG #### [place] [address] [place] Occult Blood,Urine Negative Normal Negative [facility] Comment on above: Order Comment: Name Collection Type:: Clean-Voided Midstream Performed By: #### A DDONUAPLUS, UHCG #### [place] [address] [place] RBC,Urine 1-2 Normal 0-4 [facility] Comment on above: Order Comment: Name Collection Type:: Clean-Voided Midstream Performed By: #### A DDONUAPLUS, UHCG #### [place] [address] [place] Specificy [place],Urine 1.039 High 1.001-1.03 0 [facility] Comment on above: Order Comment: Name Collection Type:: Clean-Voided Midstream Performed By: #### A DDONUAPLUS, UHCG #### [address] Squamous Epithelial Cell,Urine 5-9 High 0-2 [facility] Comment on above: Order Comment: Name Collection Type:: Clean-Voided Midstream Performed By: #### A DDONUAPLUS, UHCG #### [address] Urobilinogen,Urine 2 mg/dL High Normal [facility] Comment on above: Order Comment: Name Collection Type:: Clean-Voided Midstream Performed By: #### A DDONUAPLUS, UHCG #### [address] WBC,Urine 3-4 Normal 0-4 [facility] Comment on above: Order Comment: Name Collection Type:: Clean-Voided Midstream Performed By: #### A DDONUAPLUS, UHCG #### [facility] [address] [place] [address] Epithelial cells.squamous [# /area] in Urine sediment by Automated countOrdered By: Carmelo Vinson on 10-04-2023 Epithelial cells.squamous Auto (Urine sed) [#/Area] 5-9 [HPF] High 0-2 [facility] Erythrocytes [#/area] in Uri ne sediment by Automated countOrdered By: Carmelo Vinson on 10-04-2023 RBC Auto (Urine sed) [#/Area] 1-2 [HPF] 0-4 [facility] Glucose [Mass/volume] in Uri ne by Test stripOrdered By: Carmelo Vinson on 10-04-2023 Glucose Test strip (U) [Mass/Vol] Normal mg/dL Normal [facility] HCG ( test) IA.rapi d Ql (U)Ordered By: PROVIDER TEMP on 10-04-2023 HCG ( test) Ql (U) Negative [facility] HCG,Urineon 10-04-2023 Beta HCG ( test) Ql (U) Negative Normal [facility] Comment on above: Order Comment: Name Collection Type:: Clean-Voided Midstream Result Comment: PERF ORMED BY: [place] [address] PATHOLOGIST DIAMOND SETTER ALLA OROZCO M.D. Performed By: #### A DDONUAPLUS, CG #### [address] Hemoglobin Test strip Ql (U) Ordered By: Carmelo Vinson on 10-04-2023 Hemoglobin Ql (U) Negative Negative [facility] Hyaline casts [#/area] in Ur ine sediment by Automated countOrdered By: Carmelo Vinson on 10-04-2023 Hyaline casts Auto (Urine sed) [#/Area] 0-8 [LPF] 0-8 [facility] Ketones [Presence] in Urine by Test stripOrdered By: Carmelo Vinson on 10-04-2023 Ketones Ql (U) Trace High Negative [facility] Comment on above: Order Comment: Name Collection Type:: Clean-Voided Midstream Performed By: #### A DDONUAPLUS, [facility] #### [place] [address] [place] Leukocyte esterase [Presence ] in Urine by Test stripOrdered By: Carmelo Vinson on 10-04-2023 Leukocyte esterase Test strip Ql (U) Negative Normal Negative [facility] Comment on above: Order Comment: Name Collection Type:: Clean-Voided Midstream Performed By: #### A DDONUAPLUS CG #### [place] [address] [place] Leukocytes [#/area] in Urine sediment by Automated countOrdered By: Carmelo Vinson on 10-04-2023 WBC Auto (Urine sed) [#/Area] 3-4 [HPF] 0-4 [facility] Mucus [Presence] in Urine by AutomatedOrdered By: Carmelo Vinson on 10-04-2023 Mucus Auto Ql (U) 4+ [LPF] Abnormal [facility] Nitrite Test strip Ql (U)Ord ered By: Carmelo Vinson on 10-04-2023 Nitrite Ql (U) Negative Negative [facility] Protein [Mass/volume] in Uri ne by Test stripOrdered By: Carmelo Beckmanynes on 10-04-2023 Protein (U) [Mass/Vol] 30 mg/dL High Negative [facility] Comment on above: Order Comment: Name Collection Type:: Clean-Voided Midstream Performed By: #### A JOSE CG #### [facility] [address] Specific gravity Test strip (U) [Rel density]Ordered By: Carmelo Alisson on 10-04-2023 Specific gravity (U) [Rel density] 1.039 High 1.001-1.03 0 [facility] Urine appearanceOrdered By: Carmelo Alisson on 10-04-2023 Appearance (U) Clear Normal Clear [facility] Comment on above: Order Comment: Name Collection Type:: Clean-Voided Midstream Performed By: #### A JOSE [facility] #### [address] Urobilinogen Test strip (U) [Mass/Vol]Ordered By: Carmelo Alisson on 10-04-2023 Urobilinogen (U) [Mass/Vol] 2 mg/dL High Normal [facility] pH of Urine by Test stripOrd ered By: Carmelo Beckmanynes on 10-04-2023 pH (U) 6.0 [pH] Normal 5.0-9.0 [facility] Comment on above: Order Comment: Name Collection Type:: Clean-Voided Midstream Performed By: #### A DDONUAPLUS CG #### [address] Alanine aminotransferase [En zymatic activity/volume] in Serum or PlasmaOrdered By: Nataly Toure on 09-30-2023 ALT [Catalytic activity/Vol] 14 U/L Normal 7-52 [facility] Comment on above: Order Comment: Reaso n for Exam Adenopathy Reason for Exam Iron deficiency Reason for Exam Hypothyroidism, unspecified type Performed By: #### C USTB #### [address] Albumin [Mass/volume] in Ser um or Plasma by Bromocresol green (BCG) dye binding methoOrdered By: Nataly Toure on 09-30-2023 Albumin BCG dye [Mass/Vol] 4.2 g/dL 3.5-5.7 [facility] Alkaline phosphatase [Enzyma tic activity/volume] in Serum or PlasmaOrdered By: Nataly Toure on 09-30-2023 ALP [Catalytic activity/Vol] 80 U/L Normal 34-104 [facility] Comment on above: Order Comment: Reaso n for Exam Adenopathy Reason for Exam Iron deficiency Reason for Exam Hypothyroidism, unspecified type Performed By: #### C USTB #### [address] Aspartate aminotransferase [ Enzymatic activity/volume] in Serum or PlasmaOrdered By: Nataly Toure on 09-30-2023 AST [Catalytic activity/Vol] 10 U/L Low 13-39 [facility] Comment on above: Order Comment: Reaso n for Exam Adenopathy Reason for Exam Iron deficiency Reason for Exam Hypothyroidism, unspecified type Performed By: #### C USTB #### [facility] [address] [place] [address] Automated basophil %Ordered By: Nataly Toure on 09-30-2023 Basophils/100 WBC (Bld) 0.5 % Normal . [facility] Comment on above: Order Comment: Reaso n for Exam Adenopathy Performed By: #### C USTB #### [address] Automated basophil countOrde red By: Nataly Toure on 09-30-2023 Basophils (Bld) [#/Vol] 0.0 10*3/uL Normal 0.0-0.2 [facility] Comment on above: Order Comment: Reaso n for Exam Adenopathy Result Comment: PERF ORMED BY: [place] [address] PATHOLOGIST DIAMOND SETTER ALLA OROZCO M.D. Performed By: #### C USTB #### [address] Automated blood monocyte cou ntOrdered By: Nataly Shayleesic on 09-30-2023 Monocytes (Bld) [#/Vol] 0.7 10*3/uL Normal 0.0-0.8 [facility] Comment on above: Order Comment: Reaso n for Exam Adenopathy Performed By: #### C USTB #### [address] Automated eosinophil %Ordere d By: Nataly Spasic on 09-30-2023 Eosinophils/100 WBC (Bld) 0.4 % Normal . [facility] Comment on above: Order Comment: Reaso n for Exam Adenopathy Performed By: #### C USTB #### [address] Automated eosinophil countOr dered By: Nataly Delonc on 09-30-2023 Eosinophils (Bld) [#/Vol] 0.0 10*3/uL Normal 0.0-0.45 [facility] Comment on above: Order Comment: Reaso n for Exam Adenopathy Performed By: #### C USTB #### [address] Automated monocyte %Ordered By: Nataly Jerniganc on 09-30-2023 Monocytes/100 WBC (Bld) 8.0 % Normal . [facility] Comment on above: Order Comment: Reaso n for Exam Adenopathy Performed By: #### C USTB #### [address] Automated neutrophil %Ordere d By: Nataly Spasic on 09-30-2023 Neutrophils/100 WBC (Bld) 58.7 % Normal . [facility] Comment on above: Order Comment: Reaso n for Exam Adenopathy Performed By: #### C USTB #### [address] Bilirubin.total [Mass/volume ] in Serum or PlasmaOrdered By: Nataly Spasic on 09-30-2023 Bilirubin [Mass/Vol] 0.3 mg/dL Normal 0.3-1.0 [facility] Comment on above: Order Comment: Reaso n for Exam Adenopathy Reason for Exam Iron deficiency Reason for Exam Hypothyroidism, unspecified type Performed By: #### C USTB #### [facility] [address] [place] [address] [place] Calcium [Mass/volume] in Ser um or PlasmaOrdered By: Nataly Toure on 09-30-2023 Calcium [Mass/Vol] 9.3 mg/dL Normal 8.6-10.3 [facility] Comment on above: Order Comment: Reaso n for Exam Adenopathy Reason for Exam Iron deficiency Reason for Exam Hypothyroidism, unspecified type Performed By: #### C USTB #### [address] Carbon dioxide, total [Moles /volume] in Serum or PlasmaOrdered By: Nataly Toure on 09-30-2023 CO2 [Moles/Vol] 29.9 mmol/L Normal 21.0-31.0 [facility] Comment on above: Order Comment: Reaso n for Exam Adenopathy Reason for Exam Iron deficiency Reason for Exam Hypothyroidism, unspecified type Performed By: #### C USTB #### [place] [address] [place] Chloride [Moles/volume] in S rosa or PlasmaOrdered By: Nataly Toure on 09-30-2023 Chloride [Moles/Vol] 103 mmol/L Normal 98-107 [facility] Comment on above: Order Comment: Reaso n for Exam Adenopathy Reason for Exam Iron deficiency Reason for Exam Hypothyroidism, unspecified type Performed By: #### C USTB #### [facility] [address] [place] [address] Complete Blood Count Auto Di ffon 09-30-2023 Mean Corpuscular HGB Conc 33.2 g/dL Normal 32.0-35.0 [facility] Comment on above: Order Comment: Reaso n for Exam Adenopathy Performed By: #### C USTB #### [address] [address] [place] NRBC% 0.1 /100{WBC} Normal 0-0.5 [facility] Comment on above: Order Comment: Reaso n for Exam Adenopathy Performed By: #### C USTB #### [facility] [address] [place] [address] Comprehensive Metabolic Pane marco 09-30-2023 Albumin [Mass/Vol] 4.2 g/dL Normal 3.5-5.7 [facility] Comment on above: Order Comment: Reaso n for Exam Adenopathy Reason for Exam Iron deficiency Reason for Exam Hypothyroidism, unspecified type Performed By: #### C USTB #### [facility] [address] [place] [address] GFR/1.73 sq M.predicted MDRD (S/P/Bld) [Vol rate/Area] mL/min/{1.73_m2} Normal [facility] Comment on above: Order Comment: Reaso n for Exam Adenopathy Reason for Exam Iron deficiency Reason for Exam Hypothyroidism, unspecified type Performed By: #### C USTB #### [facility] [address] [place] [address] Creatinine [Mass/volume] in Serum or PlasmaOrdered By: Nataly Toure on 09-30-2023 Creatinine [Mass/Vol] 0.73 mg/dL Normal 0.60-1.20 [facility] Comment on above: Order Comment: Reaso n for Exam Adenopathy Reason for Exam Iron deficiency Reason for Exam Hypothyroidism, unspecified type Performed By: #### C USTB #### [facility] [address] [place], [place] [id number] [facility] D-Dimer High Sensitivityon 0 09-30-2023 D-Dimer High Sensitivity < 200 Normal 0-243 [facility] Comment on above: Order Comment: Reaso n for Exam Shortness of breath Result Comment: The reference range for D-dimer is <243 ng/mL D-dimer units. D-dimer results must be used in conjunction with a clinical pretest probability (PTP) assessment model for deep vein thrombosis (DVT) and pulmonary embolism (PE). Results <230 ng/mL d-dimer units can be used as a negative predictor in patients with low or moderate probability for DVT/PE. Results above the exclusion threshold of 230 ng/ml D-dimer units for DVT/PE may indicate the need for further diagnostic testing. D-Dimer can be increased in hospitalized patients due to co-morbid conditions. A hematocrit value greater than 55% may lead to inaccurate results in coagulation testing. Patients having hematocrit values >55% require a special collection tube for coagulation studies. Please contact the laboratory at [phone] for redraw instructions. PERFORMED BY: [place] [address] PATHOLOGIST DIAMOND SETTER ALLA OROZCO M.D. Performed By: #### G TT3 #### [address] Erythrocyte distribution wid th [Ratio] by Automated countOrdered By: Nataly Toure on 09-30-2023 Erythrocyte distribution width (RBC) [Ratio] 15.0 % Normal 11.9-15.3 [facility] Comment on above: Order Comment: Reaso n for Exam Adenopathy Performed By: #### C USTB #### [address] Erythrocytes [#/volume] in B lood by Automated countOrdered By: Nataly Toure on 09-30-2023 RBC (Bld) [#/Vol] 4.79 10*6/uL Normal 3.60-5.00 [facility] Comment on above: Order Comment: Reaso n for Exam Adenopathy Performed By: #### C USTB #### [address] Fibrin D-dimer [Presence] in Platelet poor plasma by Latex agglutinationOrdered By: Nataly Toure on 09-30-2023 Fibrin D-dimer LA Ql (PPP) < 200 ng/mL 0-243 [facility] Comment on above: The reference range for D-dimer is <243 ng/mL D-dimer units.D-dimer results must be used in conjunction with a clinicalpretest probability (PTP) assessment model for deep veinthrombosis (DVT) and pulmonary embolism (PE). Results <230ng/mL d-dimer units can be used as a negative predictor inpatients with low or moderate probability for DVT/PE.Results above the exclusion threshold of 230 ng/ml D-dimerunits for DVT/PE may indicate the need for furtherdiagnostic testing.D-Dimer can be increased in hospitalized patients due toco-morbid conditions.A hematocrit value greater than 55% may lead to inaccurate results in coagulation testing. Patients having hematocrit values >55% require a special collection tube for coagulation studies. Please contact the laboratory at [phone] for redraw instructions. Glucose [Mass/volume] in Ser um or PlasmaOrdered By: Nataly Toure on 09-30-2023 Glucose [Mass/Vol] 75 mg/dL Normal 70-100 [facility] Comment on above: ADA recommended refe rence rangeRandom Glucose Reference Range is dependent on time and content of last meal. Glucose of more than 200 mg/dL in a nonstressed, ambulatory subject supports the diagnosis of Diabetes Mellitus. Order Comment: Reaso n for Exam Adenopathy Reason for Exam Iron deficiency Reason for Exam Hypothyroidism, unspecified type Result Comment: [place] om Glucose Reference Range is dependent on time and content of last meal. Glucose of more than 200 mg/dL in a nonstressed, ambulatory subject supports the diagnosis of Diabetes Mellitus. ADA recommended reference range Performed By: #### C USTB #### [address] Hematocrit [Volume Fraction] of Blood by Automated countOrdered By: Nataly Toure on 09-30-2023 Hematocrit (Bld) [Volume fraction] 37.9 % Normal 34.0-46.4 [facility] Comment on above: Order Comment: Reaso n for Exam Adenopathy Performed By: #### C USTB #### [facility] [address] Hemoglobin [Mass/volume] in BloodOrdered By: Nataly Toure on 09-30-2023 Hemoglobin (Bld) [Mass/Vol] 12.6 g/dL Normal 11.8-15.4 [facility] Comment on above: Order Comment: Reaso n for Exam Adenopathy Performed By: #### C USTB #### [facility] [address] [place], [place] [id number] [facility] Iron [Mass/volume] in Serum or PlasmaOrdered By: Nataly Toure on 09-30-2023 Iron [Mass/Vol] 43 ug/dL Low 50-212 [facility] Comment on above: Order Comment: Reaso n for Exam Adenopathy Reason for Exam Iron deficiency Reason for Exam Hypothyroidism, unspecified type Performed By: #### G TT3 #### [facility] [address] [place] [address] [place] Iron and TIBC Profileon 09-15 % Iron Saturation 10.6 % Low 20-50 [facility] Comment on above: Order Comment: Reaso n for Exam Adenopathy Reason for Exam Iron deficiency Reason for Exam Hypothyroidism, unspecified type Performed By: #### G TT3 #### [facility] [address] [place] [address] Total Iron Binding Capacity 406 ug/dL Normal 255-450 [facility] Comment on above: Order Comment: Reaso n for Exam Adenopathy Reason for Exam Iron deficiency Reason for Exam Hypothyroidism, unspecified type Performed By: #### G TT3 #### [facility] [address] [place] [address] Iron binding capacity [Mass/ volume] in Serum or PlasmaOrdered By: Nataly Toure on 09-30-2023 Iron binding capacity [Mass/Vol] 406 ug/dL 255-450 [facility] Iron saturation [Mass Fracti on] in Serum or PlasmaOrdered By: Nataly Toure on 09-30-2023 Iron saturation [Mass fraction] 10.6 % Low 20-50 [facility] Leukocytes [#/volume] correc kee for nucleated erythrocytes in Blood by Automated counOrdered By: Nataly Toure on 09-30-2023 WBC corrected for nucl RBC Auto (Bld) [#/Vol] 8.2 10*3/uL 3.8-11.6 [facility] Leukocytes [#/volume] in Blo od by Automated countOrdered By: Nataly Toure on 09-30-2023 WBC (Bld) [#/Vol] 8.2 10*3/uL Normal 3.8-11.6 [facility] Comment on above: Order Comment: Reaso n for Exam Adenopathy Performed By: #### C USTB #### [place] [address] [place] Lymphocytes [#/volume] in Bl ood by Automated countOrdered By: Nataly Toure on 09-30-2023 Lymphocytes (Bld) [#/Vol] 2.7 10*3/uL Normal 1.00-4.8 [facility] Comment on above: Order Comment: Reaso n for Exam Adenopathy Performed By: #### C USTB #### [address] Lymphocytes/100 leukocytes i n Blood by Automated countOrdered By: Nataly Toure on 09-30-2023 Lymphocytes/100 WBC (Bld) 32.4 % Normal . [facility] Comment on above: Order Comment: Reaso n for Exam Adenopathy Performed By: #### C USTB #### [place] [address] [place] MCH [Entitic mass] by Automa kee countOrdered By: Nataly Toure on 09-30-2023 MCH (RBC) [Entitic mass] 26.3 pg Normal 24.7-34.3 [facility] Comment on above: Order Comment: Reaso n for Exam Adenopathy Performed By: #### C USTB #### [address] MCHC Auto (RBC) [Mass/Vol]Or dered By: Nataly Toure on 09-30-2023 MCHC (RBC) [Mass/Vol] 33.2 g/dL 32.0-35.0 [facility] MCV [Entitic volume] by Auto mated countOrdered By: Nataly Toure on 09-30-2023 MCV (RBC) [Entitic vol] 79.1 fL Low 80-100 [facility] Comment on above: Order Comment: Reaso n for Exam Adenopathy Performed By: #### C USTB #### [place] [address] [place] Neutrophils [#/volume] in Bl ood by Automated countOrdered By: Nataly Toure on 09-30-2023 Neutrophils (Bld) [#/Vol] 4.8 10*3/uL Normal 1.8-7.7 [facility] Comment on above: Order Comment: Reaso n for Exam Adenopathy Performed By: #### C USTB #### [facility] [address] No Panel InformationOrdered By: Nataly Toure on 09-30-2023 Estimated GFR (CKD-EPI) > 60.0 mL/Min [facility] Creatinine Clearance (Chem N/A [facility] Nucleated erythrocytes [Pres ence] in Blood by Automated countOrdered By: Nataly Toure on 09-30-2023 Nucleated RBC Auto Ql (Bld) 0.1 /100{WBC} 0-0.5 [facility] Platelet mean volume [Entiti c volume] in Blood by Automated countOrdered By: Nataly Toure on 09-30-2023 Platelet mean volume (Bld) [Entitic vol] 9.2 fL Normal 6.3-10.7 [facility] Comment on above: Order Comment: Reaso n for Exam Adenopathy Performed By: #### C USTB #### [facility] [address] [place] [address] Platelets [#/volume] in Bloo d by Automated countOrdered By: Nataly Toure on 09-30-2023 Platelets (Bld) [#/Vol] 246 10*3/uL Normal 150-450 [facility] Comment on above: Order Comment: Reaso n for Exam Adenopathy Performed By: #### C USTB #### [facility] [address] [place] [address] [place] Potassium [Moles/volume] in Serum or PlasmaOrdered By: Nataly Toure on 09-30-2023 Potassium [Moles/Vol] 3.9 mmol/L Normal 3.5-5.1 [facility] Comment on above: Order Comment: Reaso n for Exam Adenopathy Reason for Exam Iron deficiency Reason for Exam Hypothyroidism, unspecified type Performed By: #### C USTB #### [facility] [address] [place] [address] [place] Protein [Mass/volume] in Ser um or PlasmaOrdered By: Nataly Toure on 09-30-2023 Protein [Mass/Vol] 7.0 g/dL Normal 6.4-8.9 [facility] Comment on above: Order Comment: Reaso n for Exam Adenopathy Reason for Exam Iron deficiency Reason for Exam Hypothyroidism, unspecified type Performed By: #### C USTB #### [address] Serum globulin measurement b y calculation (mass/volume)Ordered By: Nataly Toure on 09-30-2023 Globulin (S) [Mass/Vol] 2.8 g/dL Normal [facility] Comment on above: Order Comment: Reaso n for Exam Adenopathy Reason for Exam Iron deficiency Reason for Exam Hypothyroidism, unspecified type Performed By: #### C USTB #### [facility] [address] [place] [address] Serum or plasma albumin/glob ulin mass ratioOrdered By: Nataly Jerniganc on 09-30-2023 Albumin/Globulin [Mass ratio] 1.5 {ratio} Normal [facility] Comment on above: Order Comment: Reaso n for Exam Adenopathy Reason for Exam Iron deficiency Reason for Exam Hypothyroidism, unspecified type Performed By: #### C USTB #### [facility] [address] [place] [address] Serum or plasma anion gap de terminationOrdered By: Nataly Toure on 09-30-2023 Anion gap [Moles/Vol] 11.0 mmol/L Normal 6.0-15.0 [facility] Comment on above: Order Comment: Reaso n for Exam Adenopathy Reason for Exam Iron deficiency Reason for Exam Hypothyroidism, unspecified type Performed By: #### C USTB #### [facility] [address] [place] [address] [place] Sodium [Moles/volume] in Ser um or PlasmaOrdered By: Nataly Jerniganc on 09-30-2023 Sodium [Moles/Vol] 140 mmol/L Normal 136-145 [facility] Comment on above: Order Comment: Reaso n for Exam Adenopathy Reason for Exam Iron deficiency Reason for Exam Hypothyroidism, unspecified type Performed By: #### C USTB #### [address] Thyroid Stim Hormone w/Rflxo n 09-30-2023 Thyroid Stim Hormone w/Rflx 4.99 u[iU]/mL Normal 0.45-5.33 [facility] Comment on above: Order Comment: Reaso n for Exam Adenopathy Reason for Exam Iron deficiency Reason for Exam Hypothyroidism, unspecified type Result Comment: PERF ORMED BY: [place] [address] PATHOLOGIST DIAMOND SETTER ALLA OROZCO M.D. Performed By: #### G TT3 #### [address] Thyrotropin [Units/volume] i n Serum or PlasmaOrdered By: Nataly Toure on 09-30-2023 TSH Qn 4.99 m[IU]/L 0.45-5.33 [facility] Transferrin [Mass/volume] in Serum or PlasmaOrdered By: Nataly Toure on 09-30-2023 Transferrin [Mass/Vol] 290 mg/dL Normal 203-362 [facility] Comment on above: Order Comment: Reaso n for Exam Adenopathy Reason for Exam Iron deficiency Reason for Exam Hypothyroidism, unspecified type Performed By: #### G TT3 #### [facility] [address] [place] [address] Urea nitrogen [Mass/volume] in Serum or PlasmaOrdered By: Nataly Toure on 09-30-2023 Urea nitrogen [Mass/Vol] 23 mg/dL Normal 7-25 [facility] Comment on above: Order Comment: Reaso n for Exam Adenopathy Reason for Exam Iron deficiency Reason for Exam Hypothyroidism, unspecified type Performed By: #### C USTB #### [address] lumbar spine wo conon CT lumbar spine wo con [facility] [place] [address] [place] [address] CT Scan Report Signed Patient: Rosette Alba MR#: [id number] : 2000 Acct:[id number] Age/Sex: 23 / F ADM Date: 09/26/23 Loc: ER Room: Type: [facility] Attending Dr: Copies to: Devon Leon PA-C Ordering Provider: Devon Leon PA-C Date of Service: 09/26/23 CT/CT lumbar spine wo con: weakness, severe low back pain CT LUMBAR SPINE WITHOUT CONTRAST WITH 3-D RECONSTRUCTIONS COMPARISON: MRI 04/15/2016 CLINICAL DATA: Chronic back pain for years with increased today and numbness at the legs. Spiral images were obtained through the lumbar spine without contrast. Sagittal, coronal and 3-D volume rendered reconstructions were reviewed. This CT exam was performed using one or more following dose reduction techniques: Automated exposure control, adjustment of the mA and/or kV according to patient size, or use of iterative reconstruction technique. There is subtle thoracolumbar levoscoliotic curvature. There are no acute compression fractures or displacement. There is slight disc space narrowing at the lumbosacral junction. There is minimal endplate spurring. There is minor annular disc bulging from L2-3 through L4-5 with slight thecal sac effacement and mild bilateral inferior foraminal encroachment. At the lumbosacral junction, there is a broad-based central protrusion with slight thecal sac effacement. Mild bony foraminal encroachment is seen at that level on the left. The SI joints are intact. The remaining imaged bony structures in the field of view show no acute findings. There are no paraspinal soft tissue abnormalities. There is increased number of small abdominal and pelvic mesenteric and retroperitoneal lymph nodes. There is no hydronephrosis. No dilated bowel is seen. CT/CT lumbar spine wo con IMPRESSION: SUBTLE SCOLIOSIS AND MILD DISCOVERTEBRAL DEGENERATIVE CHANGES. NO ACUTE FRACTURES. NONSPECIFIC ABDOMINAL AND PELVIC LYMPH NODES. Impression dictated by: Deborah Vazquez M.D.09/27/2023 8:13 AM Dictation Location: [place] [address] Transcribed By: [facility] 09/27/23 08 Dictated By: Deborah Vazquez MD 09/27/23 08 Signed By: 09/27/[id number] Normal [facility] Bacteria [Presence] in Urine by AutomatedOrdered By: Devon Leon on 09-26-2023 Bacteria Auto Ql (U) Rare [HPF] None Seen [facility] Bilirubin Test strip Ql (U)O rdered By: Devon Leon on 09-26-2023 Bilirubin Ql (U) Negative Negative [facility] Color of Urine by AutoOrdere d By: Devon Leon on 09-26-2023 Color (U) Light-yellow Normal Yellow [facility] Comment on above: Order Comment: Name Collection Type:: Clean-Voided Midstream Performed By: #### A DDONUAPLUS, CUU #### [facility] [address] [place] [address] [place] Dipstick and Microscopicon 0 09-26-2023 Bacteria,Urine Rare Normal None Seen [facility] Comment on above: Order Comment: Name Collection Type:: Clean-Voided Midstream Performed By: #### A DDONUAPLUS, CUU #### [facility] [address] [place] [address] [place] Bilirubin,Urine Negative Normal Negative [facility] Comment on above: Order Comment: Name Collection Type:: Clean-Voided Midstream Performed By: #### A DDONUAPLUS, CUU #### [facility] [address] [place] [address] [place] Glucose Ql (U) Normal Normal Normal [facility] Comment on above: Order Comment: Name Collection Type:: Clean-Voided Midstream Performed By: #### A DDONUAPLUS, CUU #### [facility] [address] [place] [address] [place] Hyaline Casts,Urine None Normal 0-8 [facility] Comment on above: Order Comment: Name Collection Type:: Clean-Voided Midstream Performed By: #### A DDONUAPLUS, CUU #### [facility] [address] [place] [id number] [place] Mucus,Urine 2+ Critically abnormal [facility] Comment on above: Order Comment: Name Collection Type:: Clean-Voided Midstream Performed By: #### A DDONUAPLUS, CUU #### [place] [address] [place] Nitrite,Urine Negative Normal Negative [facility] Comment on above: Order Comment: Name Collection Type:: Clean-Voided Midstream Performed By: #### A DDONUAPLUS, CUU #### [place] [address] [place] Occult Blood,Urine 2+ High Negative [facility] Comment on above: Order Comment: Name Collection Type:: Clean-Voided Midstream Result Comment: PERF ORMED BY: [place] [address] PATHOLOGIST DIAMOND SETTER ALLA OROZCO M.D. Performed By: #### A DDONUAPLUS, CUU #### [place] [address] [place] Protein,Urine Trace High Negative [facility] Comment on above: Order Comment: Name Collection Type:: Clean-Voided Midstream Performed By: #### A DDONUAPLUS, CUU #### [place] [address] [place] RBC,Urine 3-4 Normal 0-4 [facility] Comment on above: Order Comment: Name Collection Type:: Clean-Voided Midstream Performed By: #### A DDONUAPLUS, CUU #### [place] [address] [place] Specificy [place],Urine 1.030 Normal 1.001-1.03 0 [facility] Comment on above: Order Comment: Name Collection Type:: Clean-Voided Midstream Performed By: #### A DDONUAPLUS, CUU #### [place] [address] [place] Sperm,Urine 5-9 High 0-2 [facility] Comment on above: Order Comment: Name Collection Type:: Clean-Voided Midstream Result Comment: PERF ORMED BY: [place] [address] PATHOLOGIST DIAMOND SETTER ALLA OROZCO M.D. Performed By: #### A DDONUAPLUS, CUU #### [facility] [address] Squamous Epithelial Cell,Urine 5-9 High 0-2 [facility] Comment on above: Order Comment: Name Collection Type:: Clean-Voided Midstream Performed By: #### A DDONUAPLUS, CUU #### [address] Urobilinogen,Urine Normal Normal Normal [facility] Comment on above: Order Comment: Name Collection Type:: Clean-Voided Midstream Performed By: #### A DDONUAPLUS, CUU #### [facility] [address] WBC,Urine 5-9 High 0-4 [facility] Comment on above: Order Comment: Name Collection Type:: Clean-Voided Midstream Performed By: #### A DDONUAPLUS, CUU #### [address] Epithelial cells.squamous [# /area] in Urine sediment by Automated countOrdered By: Devon Leon on 09-26-2023 Epithelial cells.squamous Auto (Urine sed) [#/Area] 5-9 [HPF] High 0-2 [facility] Erythrocytes [#/area] in Uri ne sediment by Automated countOrdered By: Devon Leon on 09-26-2023 RBC Auto (Urine sed) [#/Area] 3-4 [HPF] 0-4 [facility] Glucose [Mass/volume] in Uri ne by Test stripOrdered By: Devon Leon on 09-26-2023 Glucose Test strip (U) [Mass/Vol] Normal mg/dL Normal [facility] Hemoglobin Test strip Ql (U) Ordered By: Devon Leon on 09-26-2023 Hemoglobin Ql (U) 2+ High Negative [facility] Hyaline casts [#/area] in Ur ine sediment by Automated countOrdered By: Devon Leon on 09-26-2023 Hyaline casts Auto (Urine sed) [#/Area] None [LPF] 0-8 [facility] Ketones [Presence] in Urine by Test stripOrdered By: Devon Leon on 09-26-2023 Ketones Ql (U) Negative Normal Negative [facility] Comment on above: Order Comment: Name Collection Type:: Clean-Voided Midstream Performed By: #### A DDONUAPLUS, CUU #### [facility] [address] [place] [address] [place] Leukocyte esterase [Presence ] in Urine by Test stripOrdered By: Devon Leon on 09-26-2023 Leukocyte esterase Test strip Ql (U) 2+ High Negative [facility] Comment on above: Order Comment: Name Collection Type:: Clean-Voided Midstream Performed By: #### A DDONUAPLUS, CUU #### [facility] [address] [place] [address] [place] Leukocytes [#/area] in Urine sediment by Automated countOrdered By: Devon Leon on 09-26-2023 WBC Auto (Urine sed) [#/Area] 5-9 [HPF] High 0-4 [facility] Mucus [Presence] in Urine by AutomatedOrdered By: Devon Leon on 09-26-2023 Mucus Auto Ql (U) 2+ [LPF] Abnormal [facility] Nitrite Test strip Ql (U)Ord ered By: Devon Leon on 09-26-2023 Nitrite Ql (U) Negative Negative [facility] Protein Test strip (U) [Mass /Vol]Ordered By: Devon Leon on 09-26-2023 Protein (U) [Mass/Vol] Trace mg/dL High Negative F [facility] Specific gravity Test strip (U) [Rel density]Ordered By: Devon Leon on 09-26-2023 Specific gravity (U) [Rel density] 1.030 1.001-1.03 0 [facility] Spermatozoa [#/area] in Urin e sediment by Automated countOrdered By: Devon Leon on 09-26-2023 Spermatozoa Auto (Urine sed) [#/Area] 5-9 [HPF] High 0-2 [facility] Urine Cultureon 09-26-2023 Bacteria identified Cx Nom (U) ORGANISM: Strep agalactiae - (group b) (O:STRAGA) [place] Count 75,000 PERFORMED BY: [place] [address] PATHOLOGIST DIAMOND SETTER ALLA OROZCO M.D. Normal [facility] Comment on above: Performed By: #### A JOSE, CUU #### [address] Urine appearanceOrdered By: Devon Leon on 09-26-2023 Appearance (U) Clear Normal Clear [facility] Comment on above: Order Comment: Name Collection Type:: Clean-Voided Midstream Performed By: #### A JOSE, CUU #### [address] Urine culture routineOrdered By: Devon Leon on 09-26-2023 Bacteria identified Cx Nom (U) Strep agalactiae - (group b) Abnormal [facility] Urobilinogen Test strip (U) [Mass/Vol]Ordered By: Devon Leon on 09-26-2023 Urobilinogen (U) [Mass/Vol] Normal mg/dL Normal [facility] pH of Urine by Test stripOrd ered By: Devon Leon on 09-26-2023 pH (U) 6.0 [pH] Normal 5.0-9.0 [facility] Comment on above: Order Comment: Name Collection Type:: Clean-Voided Midstream Performed By: #### A JOSE, CUU #### [place] [address] [place] Alanine aminotransferase [En zymatic activity/volume] in Serum or PlasmaOrdered By: Nataly Toure on 08-03-2023 ALT [Catalytic activity/Vol] 14 U/L Normal 7-52 [facility] Comment on above: Order Comment: Reaso n for Exam Hypothyroidism, unspecified type;High blood triglycerides Reason for Exam Iron deficiency Reason for Exam High blood triglycerides Reason for Exam Hypothyroidism, unspecified type Performed By: #### G TT3 #### [place] [address] [place] Albumin [Mass/volume] in Ser um or Plasma by Bromocresol green (BCG) dye binding methoOrdered By: Natayl Toure on 08-03-2023 Albumin BCG dye [Mass/Vol] 4.4 g/dL 3.5-5.7 [facility] Alkaline phosphatase [Enzyma tic activity/volume] in Serum or PlasmaOrdered By: Nataly Toure on 08-03-2023 ALP [Catalytic activity/Vol] 85 U/L Normal 34-104 [facility] Comment on above: Order Comment: Reaso n for Exam Hypothyroidism, unspecified type;High blood triglycerides Reason for Exam Iron deficiency Reason for Exam High blood triglycerides Reason for Exam Hypothyroidism, unspecified type Performed By: #### G TT3 #### [facility] [address] [place] [address] Aspartate aminotransferase [ Enzymatic activity/volume] in Serum or PlasmaOrdered By: Nataly Toure on 08-03-2023 AST [Catalytic activity/Vol] 13 U/L Normal 13-39 [facility] Comment on above: Order Comment: Reaso n for Exam Hypothyroidism, unspecified type;High blood triglycerides Reason for Exam Iron deficiency Reason for Exam High blood triglycerides Reason for Exam Hypothyroidism, unspecified type Performed By: #### G TT3 #### [facility] [address] [place] [address] Automated basophil %Ordered By: Nataly Toure on 08-03-2023 Basophils/100 WBC (Bld) 0.4 % Normal . [facility] Comment on above: Order Comment: Reaso n for Exam Iron deficiency Performed By: #### G TT3 #### [facility] [address] [place] [address] Automated basophil countOrde red By: Nataly Toure on 08-03-2023 Basophils (Bld) [#/Vol] 0.0 10*3/uL Normal 0.0-0.2 [facility] Comment on above: Order Comment: Reaso n for Exam Iron deficiency Result Comment: PERF ORMED BY: [place] [address] PATHOLOGIST DIAMOND SETTER ALLA OROZCO M.D. Performed By: #### G TT3 #### [facility] [address] [place] [address] Automated blood monocyte cou ntOrdered By: Nataly Toure on 08-03-2023 Monocytes (Bld) [#/Vol] 0.4 10*3/uL Normal 0.0-0.8 [facility] Comment on above: Order Comment: Reaso n for Exam Iron deficiency Performed By: #### G TT3 #### [facility] [address] [place] [address] Automated eosinophil %Ordere d By: Nataly Jerniganc on 08-03-2023 Eosinophils/100 WBC (Bld) 0.5 % Normal . [facility] Comment on above: Order Comment: Reaso n for Exam Iron deficiency Performed By: #### G TT3 #### [address] Automated eosinophil countOr dered By: Nataly Toure on 08-03-2023 Eosinophils (Bld) [#/Vol] 0.0 10*3/uL Normal 0.0-0.45 [facility] Comment on above: Order Comment: Reaso n for Exam Iron deficiency Performed By: #### G TT3 #### [address] Automated monocyte %Ordered By: Nataly Toure on 08-03-2023 Monocytes/100 WBC (Bld) 5.4 % Normal . [facility] Comment on above: Order Comment: Reaso n for Exam Iron deficiency Performed By: #### G TT3 #### [facility] [address] [place] [address] Automated neutrophil %Ordere d By: Ntaaly Jerniganc on 08-03-2023 Neutrophils/100 WBC (Bld) 70.9 % Normal . [facility] Comment on above: Order Comment: Reaso n for Exam Iron deficiency Performed By: #### G TT3 #### [address] Bilirubin.total [Mass/volume ] in Serum or PlasmaOrdered By: Nataly Toure on 08-03-2023 Bilirubin [Mass/Vol] 0.5 mg/dL Normal 0.3-1.0 [facility] Comment on above: Order Comment: Reaso n for Exam Hypothyroidism, unspecified type;High blood triglycerides Reason for Exam Iron deficiency Reason for Exam High blood triglycerides Reason for Exam Hypothyroidism, unspecified type Performed By: #### G TT3 #### [facility] [address] [place] [id number] [place] Calcium [Mass/volume] in Ser um or PlasmaOrdered By: Nataly Toure on 08-03-2023 Calcium [Mass/Vol] 9.5 mg/dL Normal 8.6-10.3 [facility] Comment on above: Order Comment: Reaso n for Exam Hypothyroidism, unspecified type;High blood triglycerides Reason for Exam Iron deficiency Reason for Exam High blood triglycerides Reason for Exam Hypothyroidism, unspecified type Performed By: #### G TT3 #### [facility] [address] Carbon dioxide, total [Moles /volume] in Serum or PlasmaOrdered By: Nataly Toure on 08-03-2023 CO2 [Moles/Vol] 27.2 mmol/L Normal 21.0-31.0 [facility] Comment on above: Order Comment: Reaso n for Exam Hypothyroidism, unspecified type;High blood triglycerides Reason for Exam Iron deficiency Reason for Exam High blood triglycerides Reason for Exam Hypothyroidism, unspecified type Performed By: #### G TT3 #### [facility] [address] [place] [id number] [place] Chloride [Moles/volume] in S rosa or PlasmaOrdered By: Nataly Toure on 08-03-2023 Chloride [Moles/Vol] 105 mmol/L Normal 98-107 [facility] Comment on above: Order Comment: Reaso n for Exam Hypothyroidism, unspecified type;High blood triglycerides Reason for Exam Iron deficiency Reason for Exam High blood triglycerides Reason for Exam Hypothyroidism, unspecified type Performed By: #### G TT3 #### [facility] [address] [place] [id number] [place] Cholesterol [Mass/volume] in Serum or PlasmaOrdered By: Nataly Toure on 08-03-2023 Cholesterol [Mass/Vol] 159 mg/dL Normal 140-200 [facility] Comment on above: Chol less than 200 m g/dl low riskChol 201-239 mg/dl borderline riskChol 240 mg/dl and greater high risk Order Comment: Reaso n for Exam Hypothyroidism, unspecified type;High blood triglycerides Reason for Exam Iron deficiency Reason for Exam High blood triglycerides Reason for Exam Hypothyroidism, unspecified type Result Comment: Chol less than 200 mg/dl low risk Chol 201-239 mg/dl borderline risk Chol 240 mg/dl and greater high risk Performed By: #### G TT3 #### [facility] [address] Cholesterol in LDL Calc [Mas s/Vol]Ordered By: Nataly Toure on 08-03-2023 Cholesterol in LDL [Mass/Vol] 82 mg/dL 0-100 [facility] Comment on above: LDL ATP III CLASSIFI CATIONLDL less than 100 mg/dL OptimalLDL 100-129 mg/dL Near or above optimalLDL 130-159 mg/dL Borderline highLDL 160-189 mg/dL HighLDL greater than 189 mg/dL Very high Cholesterol in VLDL Calc [Ma ss/Vol]Ordered By: Nataly Toure on 08-03-2023 Cholesterol in VLDL [Mass/Vol] 28 mg/dL [facility] Complete Blood Count Auto Di ffon 08-03-2023 Mean Corpuscular HGB Conc 33.1 g/dL Normal 32.0-35.0 [facility] Comment on above: Order Comment: Reaso n for Exam Iron deficiency Performed By: #### G TT3 #### [facility] [address] NRBC% 0.2 /100{WBC} Normal 0-0.5 [facility] Comment on above: Order Comment: Reaso n for Exam Iron deficiency Performed By: #### G TT3 #### [facility] [address] Comprehensive Metabolic Pane marco 08-03-2023 Albumin [Mass/Vol] 4.4 g/dL Normal 3.5-5.7 [facility] Comment on above: Order Comment: Reaso n for Exam Hypothyroidism, unspecified type;High blood triglycerides Reason for Exam Iron deficiency Reason for Exam High blood triglycerides Reason for Exam Hypothyroidism, unspecified type Performed By: #### G TT3 #### [facility] [address] GFR/1.73 sq M.predicted MDRD (S/P/Bld) [Vol rate/Area] mL/min/{1.73_m2} Normal [facility] Comment on above: Order Comment: Reaso n for Exam Hypothyroidism, unspecified type;High blood triglycerides Reason for Exam Iron deficiency Reason for Exam High blood triglycerides Reason for Exam Hypothyroidism, unspecified type Performed By: #### G TT3 #### [address] Creatinine [Mass/volume] in Serum or PlasmaOrdered By: Nataly Toure on 08-03-2023 Creatinine [Mass/Vol] 0.78 mg/dL Normal 0.60-1.20 [facility] Comment on above: Order Comment: Reaso n for Exam Hypothyroidism, unspecified type;High blood triglycerides Reason for Exam Iron deficiency Reason for Exam High blood triglycerides Reason for Exam Hypothyroidism, unspecified type Performed By: #### G TT3 #### [address] Erythrocyte distribution wid th [Ratio] by Automated countOrdered By: Nataly Toure on 08-03-2023 Erythrocyte distribution width (RBC) [Ratio] 14.3 % Normal 11.9-15.3 [facility] Comment on above: Order Comment: Reaso n for Exam Iron deficiency Performed By: #### G TT3 #### [place] [address] [place] Erythrocytes [#/volume] in B lood by Automated countOrdered By: Nataly Toure on 08-03-2023 RBC (Bld) [#/Vol] 4.72 10*6/uL Normal 3.60-5.00 [facility] Comment on above: Order Comment: Reaso n for Exam Iron deficiency Performed By: #### G TT3 #### [place] [address] [place] Glucose [Mass/volume] in Ser um or PlasmaOrdered By: Nataly Toure on 08-03-2023 Glucose [Mass/Vol] 82 mg/dL Normal 70-100 [facility] Comment on above: ADA recommended refe rence rangeRandom Glucose Reference Range is dependent on time and content of last meal. Glucose of more than 200 mg/dL in a nonstressed, ambulatory subject supports the diagnosis of Diabetes Mellitus. Order Comment: Reaso n for Exam Hypothyroidism, unspecified type;High blood triglycerides Reason for Exam Iron deficiency Reason for Exam High blood triglycerides Reason for Exam Hypothyroidism, unspecified type Result Comment: [place] om Glucose Reference Range is dependent on time and content of last meal. Glucose of more than 200 mg/dL in a nonstressed, ambulatory subject supports the diagnosis of Diabetes Mellitus. ADA recommended reference range Performed By: #### G TT3 #### [address] Hematocrit [Volume Fraction] of Blood by Automated countOrdered By: Nataly Toure on 08-03-2023 Hematocrit (Bld) [Volume fraction] 36.8 % Normal 34.0-46.4 [facility] Comment on above: Order Comment: Reaso n for Exam Iron deficiency Performed By: #### G TT3 #### [address] Hemoglobin [Mass/volume] in BloodOrdered By: Nataly Toure on 08-03-2023 Hemoglobin (Bld) [Mass/Vol] 12.2 g/dL Normal 11.8-15.4 [facility] Comment on above: Order Comment: Reaso n for Exam Iron deficiency Performed By: #### G TT3 #### [address] Insulinon 08-03-2023 Insulin 14.1 u[iU]/mL Normal 2.6-24.9 [facility] Comment on above: Order Comment: Name Collection Type:: Clean-Voided Midstream Result Comment: Perf ormed at: - [facility] [address] [id number] Skiing Instructor: Sam Lopez PhD, Phone: [phone] PERFORMED BY: [place] [address] PATHOLOGIST DIAMOND SETTER ALLA OROZCO M.D. Performed By: #### A DDONUAPLUS, [facility] #### [facility] [address] Iron [Mass/volume] in Serum or PlasmaOrdered By: Nataly Toure on 08-03-2023 Iron [Mass/Vol] 43 ug/dL Low 50-212 [facility] Comment on above: Order Comment: Reaso n for Exam Hypothyroidism, unspecified type;High blood triglycerides Reason for Exam Iron deficiency Reason for Exam High blood triglycerides Reason for Exam Hypothyroidism, unspecified type Performed By: #### G TT3 #### [facility] [address] Iron and TIBC Profileon 07-16 % Iron Saturation 11.3 % Low 20-50 [facility] Comment on above: Order Comment: Reaso n for Exam Hypothyroidism, unspecified type;High blood triglycerides Reason for Exam Iron deficiency Reason for Exam High blood triglycerides Reason for Exam Hypothyroidism, unspecified type Performed By: #### G TT3 #### [facility] [address] [place] [address] Total Iron Binding Capacity 382 ug/dL Normal 255-450 [facility] Comment on above: Order Comment: Reaso n for Exam Hypothyroidism, unspecified type;High blood triglycerides Reason for Exam Iron deficiency Reason for Exam High blood triglycerides Reason for Exam Hypothyroidism, unspecified type Performed By: #### G TT3 #### [place] [id number] [facility] Iron binding capacity [Mass/ volume] in Serum or PlasmaOrdered By: Nataly Toure on 08-03-2023 Iron binding capacity [Mass/Vol] 382 ug/dL 255-450 [facility] Iron saturation [Mass Fracti on] in Serum or PlasmaOrdered By: Nataly Toure on 08-03-2023 Iron saturation [Mass fraction] 11.3 % Low 20-50 [facility] Leukocytes [#/volume] correc kee for nucleated erythrocytes in Blood by Automated counOrdered By: Nataly Toure on 08-03-2023 WBC corrected for nucl RBC Auto (Bld) [#/Vol] 7.2 10*3/uL 3.8-11.6 [facility] Leukocytes [#/volume] in Blo od by Automated countOrdered By: Nataly Toure on 08-03-2023 WBC (Bld) [#/Vol] 7.2 10*3/uL Normal 3.8-11.6 [facility] Comment on above: Order Comment: Reaso n for Exam Iron deficiency Performed By: #### G TT3 #### [facility] [address] Lipid Panelon 08-03-2023 LDL Cholesterol,Calculated 82 mg/dL Normal 0-100 [facility] Comment on above: Order Comment: Reaso n for Exam Hypothyroidism, unspecified type;High blood triglycerides Reason for Exam Iron deficiency Reason for Exam High blood triglycerides Reason for Exam Hypothyroidism, unspecified type Result Comment: LDL ATP III CLASSIFICATION LDL less than 100 mg/dL Optimal LDL 100-129 mg/dL Near or above optimal LDL 130-159 mg/dL Borderline high LDL 160-189 mg/dL High LDL greater than 189 mg/dL Very high Performed By: #### G TT3 #### [facility] [address] Triglyceride w/Reflex 140 mg/dL Normal 0-149 [facility] Comment on above: Order Comment: Reaso n for Exam Hypothyroidism, unspecified type;High blood triglycerides Reason for Exam Iron deficiency Reason for Exam High blood triglycerides Reason for Exam Hypothyroidism, unspecified type Result Comment: TRIG ATP III CLASSIFICATION TRIG less than 150 mg/dL Normal TRIG 150-199 mg/dL Borderline high TRIG 200-500 mg/dL High TRIG greater than 500 mg/dL Very high Standard traceable to the Center for Disease Conrtrol and Prevention (CDC) test method. Performed By: #### G TT3 #### [facility] [address] VLDL CHOLESTEROL 28 mg/dL Normal [facility] Comment on above: Order Comment: Reaso n for Exam Hypothyroidism, unspecified type;High blood triglycerides Reason for Exam Iron deficiency Reason for Exam High blood triglycerides Reason for Exam Hypothyroidism, unspecified type Performed By: #### G TT3 #### [facility] [address] [place] [id number] [place] Lymphocytes [#/volume] in Bl ood by Automated countOrdered By: Nataly Toure on 08-03-2023 Lymphocytes (Bld) [#/Vol] 1.6 10*3/uL Normal 1.00-4.8 [facility] Comment on above: Order Comment: Reaso n for Exam Iron deficiency Performed By: #### G TT3 #### [address] Lymphocytes/100 leukocytes i n Blood by Automated countOrdered By: Nataly Toure on 08-03-2023 Lymphocytes/100 WBC (Bld) 22.8 % Normal . [facility] Comment on above: Order Comment: Reaso n for Exam Iron deficiency Performed By: #### G TT3 #### [address] MCH [Entitic mass] by Automa kee countOrdered By: Nataly Toure on 08-03-2023 MCH (RBC) [Entitic mass] 25.8 pg Normal 24.7-34.3 [facility] Comment on above: Order Comment: Reaso n for Exam Iron deficiency Performed By: #### G TT3 #### [address] MCHC Auto (RBC) [Mass/Vol]Or dered By: Nataly Toure on 08-03-2023 MCHC (RBC) [Mass/Vol] 33.1 g/dL 32.0-35.0 [facility] MCV [Entitic volume] by Auto mated countOrdered By: Nataly Toure on 08-03-2023 MCV (RBC) [Entitic vol] 78.0 fL Low 80-100 [facility] Comment on above: Order Comment: Reaso n for Exam Iron deficiency Performed By: #### G TT3 #### [place] [address] [place] Neutrophils [#/volume] in Bl ood by Automated countOrdered By: Nataly Toure on 08-03-2023 Neutrophils (Bld) [#/Vol] 5.1 10*3/uL Normal 1.8-7.7 [facility] Comment on above: Order Comment: Reaso n for Exam Iron deficiency Performed By: #### G TT3 #### [facility] [address] [place] [address] No Panel InformationOrdered By: Nataly Toure on 08-03-2023 Estimated GFR (CKD-EPI) > 60.0 mL/Min [facility] Creatinine Clearance (Chem N/A [facility] Nucleated erythrocytes [Pres ence] in Blood by Automated countOrdered By: Nataly Toure on 08-03-2023 Nucleated RBC Auto Ql (Bld) 0.2 /100{WBC} 0-0.5 [facility] Platelet mean volume [Entiti c volume] in Blood by Automated countOrdered By: Nataly Toure on 08-03-2023 Platelet mean volume (Bld) [Entitic vol] 9.2 fL Normal 6.3-10.7 [facility] Comment on above: Order Comment: Reaso n for Exam Iron deficiency Performed By: #### G TT3 #### [facility] [address] [place] [address] Platelets [#/volume] in Bloo d by Automated countOrdered By: Nataly Toure on 08-03-2023 Platelets (Bld) [#/Vol] 260 10*3/uL Normal 150-450 [facility] Comment on above: Order Comment: Reaso n for Exam Iron deficiency Performed By: #### G TT3 #### [facility] [address] [place] [address] [place] Potassium [Moles/volume] in Serum or PlasmaOrdered By: Nataly Toure on 08-03-2023 Potassium [Moles/Vol] 3.6 mmol/L Normal 3.5-5.1 [facility] Comment on above: Order Comment: Reaso n for Exam Hypothyroidism, unspecified type;High blood triglycerides Reason for Exam Iron deficiency Reason for Exam High blood triglycerides Reason for Exam Hypothyroidism, unspecified type Performed By: #### G TT3 #### [facility] [address] [place] [address] [place] Protein [Mass/volume] in Ser um or PlasmaOrdered By: Nataly Toure on 08-03-2023 Protein [Mass/Vol] 7.2 g/dL Normal 6.4-8.9 [facility] Comment on above: Order Comment: Reaso n for Exam Hypothyroidism, unspecified type;High blood triglycerides Reason for Exam Iron deficiency Reason for Exam High blood triglycerides Reason for Exam Hypothyroidism, unspecified type Performed By: #### G TT3 #### [facility] [address] Serum globulin measurement b y calculation (mass/volume)Ordered By: Nataly Toure on 08-03-2023 Globulin (S) [Mass/Vol] 2.8 g/dL Normal [facility] Comment on above: Order Comment: Reaso n for Exam Hypothyroidism, unspecified type;High blood triglycerides Reason for Exam Iron deficiency Reason for Exam High blood triglycerides Reason for Exam Hypothyroidism, unspecified type Performed By: #### G TT3 #### [facility] [address] [place] [address] Serum or plasma albumin/glob ulin mass ratioOrdered By: Nataly Toure on 08-03-2023 Albumin/Globulin [Mass ratio] 1.6 {ratio} Normal [facility] Comment on above: Order Comment: Reaso n for Exam Hypothyroidism, unspecified type;High blood triglycerides Reason for Exam Iron deficiency Reason for Exam High blood triglycerides Reason for Exam Hypothyroidism, unspecified type Performed By: #### G TT3 #### [facility] [address] [place] [address] Serum or plasma anion gap de terminationOrdered By: Nataly Toure on 08-03-2023 Anion gap [Moles/Vol] 11.4 mmol/L Normal 6.0-15.0 [facility] Comment on above: Order Comment: Reaso n for Exam Hypothyroidism, unspecified type;High blood triglycerides Reason for Exam Iron deficiency Reason for Exam High blood triglycerides Reason for Exam Hypothyroidism, unspecified type Performed By: #### G TT3 #### [facility] [address] [place], [place] [id number] [facility] Serum or plasma high density lipoprotein (HDL) cholesterol measurementOrdered By: Nataly Toure on 08-03-2023 Cholesterol in HDL [Mass/Vol] 49 mg/dL Normal 23-92 [facility] Comment on above: HDL CHOL ATP-III CLA SSIFICATION Cardiovascular RiskHDL > or equal to 60 mg/dL LOWHDL < 40 mg/dL HIGH Order Comment: Reaso n for Exam Hypothyroidism, unspecified type;High blood triglycerides Reason for Exam Iron deficiency Reason for Exam High blood triglycerides Reason for Exam Hypothyroidism, unspecified type Result Comment: HDL CHOL ATP-III CLASSIFICATION Cardiovascular Risk HDL > or equal to 60 mg/dL LOW HDL < 40 mg/dL HIGH Performed By: #### G TT3 #### [facility] [address] Serum or plasma insulin nikita urement (units/volume)Ordered By: Nataly Toure on 08-03-2023 Insulin Qn 14.1 u[iU]/mL 2.6-24.9 [facility] Comment on above: Performed at: [place] [id number] Director: Sam Lopez PhD, Phone: [phone] Serum or plasma total choles terol/high density lipoprotein (HDL) cholesterol mass ratOrdered By: Nataly Toure on 08-03-2023 Cholesterol.total/Chol esterol in HDL [Mass ratio] 3.2 {ratio} Normal <5.0 [facility] Comment on above: Order Comment: Reaso n for Exam Hypothyroidism, unspecified type;High blood triglycerides Reason for Exam Iron deficiency Reason for Exam High blood triglycerides Reason for Exam Hypothyroidism, unspecified type Performed By: #### G TT3 #### [facility] [address] [place] [address] [place] Sodium [Moles/volume] in Ser um or PlasmaOrdered By: Nataly Toure on 08-03-2023 Sodium [Moles/Vol] 140 mmol/L Normal 136-145 [facility] Comment on above: Order Comment: Reaso n for Exam Hypothyroidism, unspecified type;High blood triglycerides Reason for Exam Iron deficiency Reason for Exam High blood triglycerides Reason for Exam Hypothyroidism, unspecified type Performed By: #### G TT3 #### [facility] [address] Thyroid Stim Hormone w/Rflxo n 06-18-2024 Thyroid Stim Hormone w/Rflx 3.20 u[iU]/mL Normal 0.45-5.33 [facility] Comment on above: Order Comment: Reaso n for Exam Hypothyroidism, unspecified type;High blood triglycerides Reason for Exam Iron deficiency Reason for Exam High blood triglycerides Reason for Exam Hypothyroidism, unspecified type Result Comment: PERF ORMED BY: [place] [address] PATHOLOGIST DIAMOND SETTER ALLA OROZCO M.D. Performed By: #### G TT3 #### [facility] [address] [place] [address] Thyrotropin [Units/volume] i n Serum or PlasmaOrdered By: Nataly Toure on 08-03-2023 TSH Qn 3.20 m[IU]/L 0.45-5.33 [facility] Transferrin [Mass/volume] in Serum or PlasmaOrdered By: Nataly Toure on 08-03-2023 Transferrin [Mass/Vol] 273 mg/dL Normal 203-362 [facility] Comment on above: Order Comment: Reaso n for Exam Hypothyroidism, unspecified type;High blood triglycerides Reason for Exam Iron deficiency Reason for Exam High blood triglycerides Reason for Exam Hypothyroidism, unspecified type Performed By: #### G TT3 #### [facility] [address] [place] [address] Triglyceride [Mass/volume] i n Serum or PlasmaOrdered By: Nataly Toure on 08-03-2023 Triglyceride [Mass/Vol] 140 mg/dL 0-149 [facility] Comment on above: TRIG ATP III CLASSIF ICATIONTRIG less than 150 mg/dL NormalTRIG 150-199 mg/dL Borderline highTRIG 200-500 mg/dL High TRIG greater than 500 mg/dL Very highStandard traceable to the Center for Disease Conrtrol and Prevention (CDC) test method. Urea nitrogen [Mass/volume] in Serum or PlasmaOrdered By: Nataly Toure on 08-03-2023 Urea nitrogen [Mass/Vol] 10 mg/dL Normal 7-25 [facility] Comment on above: Order Comment: Reaso n for Exam Hypothyroidism, unspecified type;High blood triglycerides Reason for Exam Iron deficiency Reason for Exam High blood triglycerides Reason for Exam Hypothyroidism, unspecified type Performed By: #### G TT3 #### [address] Complete Blood Count Auto Di ffon 04-15-2023 Basophils (Bld) [#/Vol] 0.0 10*3/uL Normal 0.0-0.2 [facility] Comment on above: Order Comment: Reaso n for Exam Iron deficiency Result Comment: PERF ORMED BY: [place] [address] PATHOLOGIST DIAMOND SETTER ALLA OROZCO M.D. Performed By: #### C BC #### [address] #### RPR W RFX #### [facility] , Basophils/100 WBC (Bld) 0.5 % Normal . [facility] Comment on above: Order Comment: Reaso n for Exam Iron deficiency Performed By: #### C BC #### [address] #### RPR W RFX #### [facility] , Eosinophils (Bld) [#/Vol] 0.2 10*3/uL Normal 0.0-0.45 [facility] Comment on above: Order Comment: Reaso n for Exam Iron deficiency Performed By: #### C BC #### [address] #### RPR W RFX #### [facility] , Eosinophils/100 WBC (Bld) 3.8 % Normal . [facility] Comment on above: Order Comment: Reaso n for Exam Iron deficiency Performed By: #### C BC #### [place] [address] [place] #### RPR W RFX #### [facility] , Erythrocyte distribution width (RBC) [Ratio] 16.9 % High 11.9-15.3 [facility] Comment on above: Order Comment: Reaso n for Exam Iron deficiency Performed By: #### C BC #### [place] [address] [place] #### RPR W RFX #### [facility] , Hematocrit (Bld) [Volume fraction] 36.2 % Normal 34.0-46.4 [facility] Comment on above: Order Comment: Reaso n for Exam Iron deficiency Performed By: #### C BC #### [place] [address] [place] #### RPR W RFX #### [facility] , Hemoglobin (Bld) [Mass/Vol] 12.0 g/dL Normal 11.8-15.4 [facility] Comment on above: Order Comment: Reaso n for Exam Iron deficiency Performed By: #### C BC #### [address] #### RPR W RFX #### [facility] , Lymphocytes (Bld) [#/Vol] 1.6 10*3/uL Normal 1.00-4.8 [facility] Comment on above: Order Comment: Reaso n for Exam Iron deficiency Performed By: #### C BC #### [address] #### RPR W RFX #### [facility] , Lymphocytes/100 WBC (Bld) 28.1 % Normal . [facility] Comment on above: Order Comment: Reaso n for Exam Iron deficiency Performed By: #### C BC #### [place] [address] [place] #### RPR W RFX #### [facility] , MCH (RBC) [Entitic mass] 25.7 pg Normal 24.7-34.3 [facility] Comment on above: Order Comment: Reaso n for Exam Iron deficiency Performed By: #### C BC #### [place] [address] [place] #### RPR W RFX #### [facility] , MCV (RBC) [Entitic vol] 77.7 fL Low 80-100 [facility] Comment on above: Order Comment: Reaso n for Exam Iron deficiency Performed By: #### C BC #### [place] [address] [place] #### RPR W RFX #### [facility] , Mean Corpuscular HGB Conc 33.1 g/dL Normal 32.0-35.0 [facility] Comment on above: Order Comment: Reaso n for Exam Iron deficiency Performed By: #### C BC #### [facility] [address] [place] [address] [place] #### RPR W RFX #### [facility] , Monocytes (Bld) [#/Vol] 0.5 10*3/uL Normal 0.0-0.8 [facility] Comment on above: Order Comment: Reaso n for Exam Iron deficiency Performed By: #### C BC #### [address] #### RPR W RFX #### [facility] , Monocytes/100 WBC (Bld) 9.0 % Normal . [facility] Comment on above: Order Comment: Reaso n for Exam Iron deficiency Performed By: #### C BC #### [facility] [address] [place] [address] [place] #### RPR W RFX #### [facility] , Neutrophils (Bld) [#/Vol] 3.3 10*3/uL Normal 1.8-7.7 [facility] Comment on above: Order Comment: Reaso n for Exam Iron deficiency Performed By: #### C BC #### [place] [address] [place] #### RPR W RFX #### [facility] , Neutrophils/100 WBC (Bld) 58.6 % Normal . [facility] Comment on above: Order Comment: Reaso n for Exam Iron deficiency Performed By: #### C BC #### [facility] [address] [place] [address] [place] #### RPR W RFX #### [facility] , NRBC% 0.1 /100{WBC} Normal 0-0.5 [facility] Comment on above: Order Comment: Reaso n for Exam Iron deficiency Performed By: #### C BC #### [place] [address] [place] #### RPR W RFX #### [facility] , Platelet mean volume (Bld) [Entitic vol] 9.1 fL Normal 6.3-10.7 [facility] Comment on above: Order Comment: Reaso n for Exam Iron deficiency Performed By: #### C BC #### [place] [address] [place] #### RPR W RFX #### [facility] , Platelets (Bld) [#/Vol] 220 10*3/uL Normal 150-450 [facility] Comment on above: Order Comment: Reaso n for Exam Iron deficiency Performed By: #### C BC #### [address] #### RPR W RFX #### [facility] , RBC (Bld) [#/Vol] 4.66 10*6/uL Normal 3.60-5.00 [facility] Comment on above: Order Comment: Reaso n for Exam Iron deficiency Performed By: #### C BC #### [facility] [address] [place] [address] [place] #### RPR W RFX #### [facility] , WBC (Bld) [#/Vol] 5.6 10*3/uL Normal 3.8-11.6 [facility] Comment on above: Order Comment: Reaso n for Exam Iron deficiency Performed By: #### C BC #### [facility] [address] [place] [address] #### RPR W RFX #### [facility] , Comprehensive Metabolic Pane marco 04-15-2023 Albumin [Mass/Vol] 4.1 g/dL Normal 3.5-5.7 [facility] Comment on above: Order Comment: Reaso n for Exam Iron deficiency Reason for Exam High blood triglycerides Performed By: #### C BC #### [facility] [address] [place] [address] #### RPR W RFX #### [facility] , Albumin/Globulin [Mass ratio] 1.4 {ratio} Normal [facility] Comment on above: Order Comment: Reaso n for Exam Iron deficiency Reason for Exam High blood triglycerides Performed By: #### C BC #### [address] #### RPR W RFX #### [facility] , ALP [Catalytic activity/Vol] 89 U/L Normal 34-104 [facility] Comment on above: Order Comment: Reaso n for Exam Iron deficiency Reason for Exam High blood triglycerides Performed By: #### C BC #### [facility] [address] [place] [address] #### RPR W RFX #### [facility] , ALT [Catalytic activity/Vol] 14 U/L Normal 7-52 [facility] Comment on above: Order Comment: Reaso n for Exam Iron deficiency Reason for Exam High blood triglycerides Performed By: #### C BC #### [facility] [address] [place] [address] [place] #### RPR W RFX #### [facility] , Anion gap [Moles/Vol] 10.2 mmol/L Normal 6.0-15.0 [facility] Comment on above: Order Comment: Reaso n for Exam Iron deficiency Reason for Exam High blood triglycerides Performed By: #### C BC #### [address] #### RPR W RFX #### [facility] , AST [Catalytic activity/Vol] 13 U/L Normal 13-39 [facility] Comment on above: Order Comment: Reaso n for Exam Iron deficiency Reason for Exam High blood triglycerides Performed By: #### C BC #### [facility] [address] [place] [address] #### RPR W RFX #### [facility] , Bilirubin [Mass/Vol] 0.3 mg/dL Normal 0.3-1.0 [facility] Comment on above: Order Comment: Reaso n for Exam Iron deficiency Reason for Exam High blood triglycerides Performed By: #### C BC #### [address] #### RPR W RFX #### [facility] , Calcium [Mass/Vol] 9.0 mg/dL Normal 8.6-10.3 [facility] Comment on above: Order Comment: Reaso n for Exam Iron deficiency Reason for Exam High blood triglycerides Performed By: #### C BC #### [facility] [address] [place] [address] #### RPR W RFX #### [facility] , Chloride [Moles/Vol] 105 mmol/L Normal 98-107 [facility] Comment on above: Order Comment: Reaso n for Exam Iron deficiency Reason for Exam High blood triglycerides Performed By: #### C BC #### [address] #### RPR W RFX #### [facility] , CO2 [Moles/Vol] 27.9 mmol/L Normal 21.0-31.0 [facility] Comment on above: Order Comment: Reaso n for Exam Iron deficiency Reason for Exam High blood triglycerides Performed By: #### C BC #### [facility] [address] [place] [address] [place] #### RPR W RFX #### [facility] , Creatinine [Mass/Vol] 0.69 mg/dL Normal 0.60-1.20 [facility] Comment on above: Order Comment: Reaso n for Exam Iron deficiency Reason for Exam High blood triglycerides Performed By: #### C BC #### [place] [address] [place] #### RPR W RFX #### [facility] , GFR/1.73 sq M.predicted MDRD (S/P/Bld) [Vol rate/Area] mL/min/{1.73_m2} Normal [facility] Comment on above: Order Comment: Reaso n for Exam Iron deficiency Reason for Exam High blood triglycerides Performed By: #### C BC #### [address] #### RPR W RFX #### [facility] , Globulin (S) [Mass/Vol] 2.9 g/dL Normal [facility] Comment on above: Order Comment: Reaso n for Exam Iron deficiency Reason for Exam High blood triglycerides Performed By: #### C BC #### [facility] [address] [place] [address] [place] #### RPR W RFX #### [facility] , Glucose [Mass/Vol] 103 mg/dL High 70-100 [facility] Comment on above: Order Comment: Reaso n for Exam Iron deficiency Reason for Exam High blood triglycerides Result Comment: [place] om Glucose Reference Range is dependent on time and content of last meal. Glucose of more than 200 mg/dL in a nonstressed, ambulatory subject supports the diagnosis of Diabetes Mellitus. ADA recommended reference range Performed By: #### C BC #### [facility] [address] [place] [address] [place] #### RPR W RFX #### [facility] , Potassium [Moles/Vol] 4.1 mmol/L Normal 3.5-5.1 [facility] Comment on above: Order Comment: Reaso n for Exam Iron deficiency Reason for Exam High blood triglycerides Performed By: #### C BC #### [facility] [address] [place] [address] #### RPR W RFX #### [facility] , Protein [Mass/Vol] 7.0 g/dL Normal 6.4-8.9 [facility] Comment on above: Order Comment: Reaso n for Exam Iron deficiency Reason for Exam High blood triglycerides Performed By: #### C BC #### [facility] [address] [place] [address] #### RPR W RFX #### [facility] , Sodium [Moles/Vol] 139 mmol/L Normal 136-145 [facility] Comment on above: Order Comment: Reaso n for Exam Iron deficiency Reason for Exam High blood triglycerides Performed By: #### C BC #### [address] #### RPR W RFX #### [facility] , Urea nitrogen [Mass/Vol] 12 mg/dL Normal 7-25 [facility] Comment on above: Order Comment: Reaso n for Exam Iron deficiency Reason for Exam High blood triglycerides Performed By: #### C BC #### [address] #### RPR W RFX #### [facility] , Iron and TIBC Profileon 03-19 % Iron Saturation 8.6 % Low 20-50 [facility] Comment on above: Order Comment: Reaso n for Exam Iron deficiency Reason for Exam High blood triglycerides Performed By: #### C BC #### [facility] [address] [place] [address] [place] #### RPR W RFX #### [facility] , Iron [Mass/Vol] 28 ug/dL Low 50-212 [facility] Comment on above: Order Comment: Reaso n for Exam Iron deficiency Reason for Exam High blood triglycerides Performed By: #### C BC #### [address] [place] [address] [place] #### RPR W RFX #### [facility] , Total Iron Binding Capacity 326 ug/dL Normal 255-450 [facility] Comment on above: Order Comment: Reaso n for Exam Iron deficiency Reason for Exam High blood triglycerides Performed By: #### C BC #### [facility] [address] [place] [address] [place] #### RPR W RFX #### [facility] , Transferrin [Mass/Vol] 233 mg/dL Normal 203-362 [facility] Comment on above: Order Comment: Reaso n for Exam Iron deficiency Reason for Exam High blood triglycerides Performed By: #### C BC #### [facility] [address] [place] [address] #### RPR W RFX #### [facility] , Lipid Panelon 04-15-2023 Cholesterol [Mass/Vol] 131 mg/dL Low 140-200 [facility] Comment on above: Order Comment: Reaso n for Exam Iron deficiency Reason for Exam High blood triglycerides Result Comment: Chol less than 200 mg/dl low risk Chol 201-239 mg/dl borderline risk Chol 240 mg/dl and greater high risk Performed By: #### C BC #### [facility] [address] [place] [address] #### RPR W RFX #### [facility] , Cholesterol in HDL [Mass/Vol] 39 mg/dL Normal 23-92 [facility] Comment on above: Order Comment: Reaso n for Exam Iron deficiency Reason for Exam High blood triglycerides Result Comment: HDL CHOL ATP-III CLASSIFICATION Cardiovascular Risk HDL > or equal to 60 mg/dL LOW HDL < 40 mg/dL HIGH Performed By: #### C BC #### [facility] [address] [place] [address] [place] #### RPR W RFX #### [facility] , Cholesterol.total/Chol esterol in HDL [Mass ratio] 3.4 {ratio} Normal <5.0 [facility] Comment on above: Order Comment: Reaso n for Exam Iron deficiency Reason for Exam High blood triglycerides Result Comment: PERF ORMED BY: [place] [address] PATHOLOGIST DIAMOND SETTER ALLA OROZCO M.D. Performed By: #### C BC #### [address] #### RPR W RFX #### [facility] , LDL Cholesterol,Calculated 58 mg/dL Normal 0-100 [facility] Comment on above: Order Comment: Reaso n for Exam Iron deficiency Reason for Exam High blood triglycerides Result Comment: LDL ATP III CLASSIFICATION LDL less than 100 mg/dL Optimal LDL 100-129 mg/dL Near or above optimal LDL 130-159 mg/dL Borderline high LDL 160-189 mg/dL High LDL greater than 189 mg/dL Very high Performed By: #### C BC #### [address] #### RPR W RFX #### [facility] , Triglyceride w/Reflex 170 mg/dL High 0-149 [facility] Comment on above: Order Comment: Reaso n for Exam Iron deficiency Reason for Exam High blood triglycerides Result Comment: TRIG ATP III CLASSIFICATION TRIG less than 150 mg/dL Normal TRIG 150-199 mg/dL Borderline high TRIG 200-500 mg/dL High TRIG greater than 500 mg/dL Very high Standard traceable to the Center for Disease Conrtrol and Prevention (CDC) test method. Performed By: #### C BC #### [facility] [address] [place] [address] [place] #### RPR W RFX #### [facility] , VLDL CHOLESTEROL 34 mg/dL Normal [facility] Comment on above: Order Comment: Reaso n for Exam Iron deficiency Reason for Exam High blood triglycerides Performed By: #### C BC #### [facility] [address] [place] [address] [place] #### RPR W RFX #### [facility] , A1C with Estimated Average G luon 01-31-2024 Glucose [Mass/Vol] 114 mg/dL Normal [facility] Comment on above: Order Comment: Name Collection Type:: Clean-Voided Midstream Result Comment: PERF ORMED BY: [place] [address] PATHOLOGIST DIAMOND SETTER ALLA OROZCO M.D. Performed By: #### A VERNA GARCIA #### [address] Glucose mean value [Mass/vol ume] in Blood Estimated from glycated hemoglobinOrdered By: Nataly Toure on 03-17-2023 Average glucose Estimated from glycated hemoglobin (Bld) [Mass/Vol] 114 mg/dL [facility] Hemoglobin A1c percentageOrd ered By: Nataly Toure on 03-17-2023 HbA1c (Bld) [Mass fraction] 5.6 % Normal 4.3-5.6 [facility] Comment on above: Increased risk for d iabetes: 5.7 - 6.4diabetes: >6.4glycemic control for adults with diabetes: <7.0 Order Comment: Name Collection Type:: Clean-Voided Midstream Result Comment: Incr eased risk for diabetes: 5.7 - 6.4 diabetes: >6.4 glycemic control for adults with diabetes: <7.0 Performed By: #### A VERNA GARCIA #### [address] Insulinon 03-17-2023 Insulin 105.0 u[iU]/mL High 2.6-24.9 [facility] Comment on above: Order Comment: Name Collection Type:: Clean-Voided Midstream Result Comment: Perf ormed at: - [facility] [id number] Skiing Instructor: Sam Lopez PhD, Phone: [phone] PERFORMED BY: [place] [address] PATHOLOGIST DIAMOND SETTER ALLA OROZCO M.D. Performed By: #### A VERNA GARCIA #### [facility] [address] [place] [address] Alanine aminotransferase [En zymatic activity/volume] in Serum or PlasmaOrdered By: Nataly Toure on 03-04-2023 ALT [Catalytic activity/Vol] 12 U/L Normal 7-52 [facility] Comment on above: Order Comment: Reaso n for Exam Obesity, unspecified;High blood triglycerides Reason for Exam Iron deficiency Reason for Exam High blood triglycerides Reason for Exam Hypothyroidism, unspecified type Performed By: #### C BC #### [facility] [address] [place] [address] #### RPR W RFX #### [facility] , Albumin [Mass/volume] in Ser um or Plasma by Bromocresol green (BCG) dye binding methoOrdered By: Nataly Toure on 03-04-2023 Albumin BCG dye [Mass/Vol] 3.7 g/dL 3.5-5.7 [facility] Alkaline phosphatase [Enzyma tic activity/volume] in Serum or PlasmaOrdered By: Nataly Toure on 03-04-2023 ALP [Catalytic activity/Vol] 100 U/L Normal 34-104 [facility] Comment on above: Order Comment: Reaso n for Exam Obesity, unspecified;High blood triglycerides Reason for Exam Iron deficiency Reason for Exam High blood triglycerides Reason for Exam Hypothyroidism, unspecified type Performed By: #### C BC #### [facility] [address] [place] [address] [place] #### RPR W RFX #### [facility] , Aspartate aminotransferase [ Enzymatic activity/volume] in Serum or PlasmaOrdered By: Nataly Toure on 03-04-2023 AST [Catalytic activity/Vol] 12 U/L Low 13-39 [facility] Comment on above: Order Comment: Reaso n for Exam Obesity, unspecified;High blood triglycerides Reason for Exam Iron deficiency Reason for Exam High blood triglycerides Reason for Exam Hypothyroidism, unspecified type Performed By: #### C BC #### [facility] [address] [place] [address] [place] #### RPR W RFX #### [facility] , Automated basophil %Ordered By: Nataly Toure on 03-04-2023 Basophils/100 WBC (Bld) 1.0 % Normal . [facility] Comment on above: Order Comment: Reaso n for Exam Obesity, unspecified;High blood triglycerides Performed By: #### C BC #### [facility] [address] [place] [address] [place] #### RPR W RFX #### [facility] , Automated basophil countOrde red By: Nataly Toure on 03-04-2023 Basophils (Bld) [#/Vol] 0.1 10*3/uL Normal 0.0-0.2 [facility] Comment on above: Order Comment: Reaso n for Exam Obesity, unspecified;High blood triglycerides Result Comment: PERF ORMED BY: [place] [address] PATHOLOGIST DIAMOND SETTER ALLA OROZCO M.D. Performed By: #### C BC #### [place] [address] [place] #### RPR W RFX #### [facility] , Automated blood monocyte cou ntOrdered By: Nataly Toure on 03-04-2023 Monocytes (Bld) [#/Vol] 0.6 10*3/uL Normal 0.0-0.8 [facility] Comment on above: Order Comment: Reaso n for Exam Obesity, unspecified;High blood triglycerides Performed By: #### C BC #### [place] [address] [place] #### RPR W RFX #### [facility] , Automated eosinophil %Ordere d By: Nataly Toure on 03-04-2023 Eosinophils/100 WBC (Bld) 2.0 % Normal . [facility] Comment on above: Order Comment: Reaso n for Exam Obesity, unspecified;High blood triglycerides Performed By: #### C BC #### [place] [address] [place] #### RPR W RFX #### [facility] , Automated eosinophil countOr dered By: Nataly Toure on 03-04-2023 Eosinophils (Bld) [#/Vol] 0.1 10*3/uL Normal 0.0-0.45 [facility] Comment on above: Order Comment: Reaso n for Exam Obesity, unspecified;High blood triglycerides Performed By: #### C BC #### [facility] [address] [place] [address] [place] #### RPR W RFX #### [facility] , Automated monocyte %Ordered By: Nataly Toure on 03-04-2023 Monocytes/100 WBC (Bld) 9.2 % Normal . [facility] Comment on above: Order Comment: Reaso n for Exam Obesity, unspecified;High blood triglycerides Performed By: #### C BC #### [place] [address] [place] #### RPR W RFX #### [facility] , Automated neutrophil %Ordere d By: Nataly Toure on 03-04-2023 Neutrophils/100 WBC (Bld) 58.4 % Normal . [facility] Comment on above: Order Comment: Reaso n for Exam Obesity, unspecified;High blood triglycerides Performed By: #### C BC #### [facility] [address] [place] [address] [place] #### RPR W RFX #### [facility] , Bilirubin.total [Mass/volume ] in Serum or PlasmaOrdered By: Nataly Toure on 03-04-2023 Bilirubin [Mass/Vol] 0.3 mg/dL Normal 0.3-1.0 [facility] Comment on above: Order Comment: Reaso n for Exam Obesity, unspecified;High blood triglycerides Reason for Exam Iron deficiency Reason for Exam High blood triglycerides Reason for Exam Hypothyroidism, unspecified type Performed By: #### C BC #### [facility] [address] [place] [address] [place] #### RPR W RFX #### [facility] , Calcium [Mass/volume] in Ser um or PlasmaOrdered By: Nataly Toure on 03-04-2023 Calcium [Mass/Vol] 8.9 mg/dL Normal 8.6-10.3 [facility] Comment on above: Order Comment: Reaso n for Exam Obesity, unspecified;High blood triglycerides Reason for Exam Iron deficiency Reason for Exam High blood triglycerides Reason for Exam Hypothyroidism, unspecified type Performed By: #### C BC #### [facility] [address] [place] [address] #### RPR W RFX #### [facility] , Carbon dioxide, total [Moles /volume] in Serum or PlasmaOrdered By: Nataly Toure on 03-04-2023 CO2 [Moles/Vol] 26.6 mmol/L Normal 21.0-31.0 [facility] Comment on above: Order Comment: Reaso n for Exam Obesity, unspecified;High blood triglycerides Reason for Exam Iron deficiency Reason for Exam High blood triglycerides Reason for Exam Hypothyroidism, unspecified type Performed By: #### C BC #### [facility] [address] [place] [address] [place] #### RPR W RFX #### [facility] , Chloride [Moles/volume] in S rosa or PlasmaOrdered By: Nataly Toure on 03-04-2023 Chloride [Moles/Vol] 105 mmol/L Normal 98-107 [facility] Comment on above: Order Comment: Reaso n for Exam Obesity, unspecified;High blood triglycerides Reason for Exam Iron deficiency Reason for Exam High blood triglycerides Reason for Exam Hypothyroidism, unspecified type Performed By: #### C BC #### [facility] [address] [place] [address] [place] #### RPR W RFX #### [facility] , Cholesterol [Mass/volume] in Serum or PlasmaOrdered By: Nataly Toure on 03-04-2023 Cholesterol [Mass/Vol] 231 mg/dL High 140-200 [facility] Comment on above: Chol less than 200 m g/dl low riskChol 201-239 mg/dl borderline riskChol 240 mg/dl and greater high risk Order Comment: Reaso n for Exam Obesity, unspecified;High blood triglycerides Reason for Exam Iron deficiency Reason for Exam High blood triglycerides Reason for Exam Hypothyroidism, unspecified type Result Comment: Chol less than 200 mg/dl low risk Chol 201-239 mg/dl borderline risk Chol 240 mg/dl and greater high risk Performed By: #### C BC #### [facility] [address] [place] [address] [place] #### RPR W RFX #### [facility] , Cholesterol in LDL Calc [Mas s/Vol]Ordered By: Nataly Toure on 03-04-2023 Cholesterol in LDL [Mass/Vol] TNP [facility] Comment on above: Test not performed Cholesterol in LDL [Mass/vol ume] in Serum or PlasmaOrdered By: Nataly Toure on 03-04-2023 Cholesterol in LDL [Mass/Vol] 81 mg/dL 0-100 [facility] Comment on above: LDL ATP III CLASSIFI CATIONLDL less than 100 mg/dL OptimalLDL 100-129 mg/dL Near or above optimalLDL 130-159 mg/dL Borderline highLDL 160-189 mg/dL HighLDL greater than 189 mg/dL Very high Cholesterol in VLDL Calc [Ma ss/Vol]Ordered By: Nataly Toure on 03-04-2023 Cholesterol in VLDL [Mass/Vol] 172 mg/dL [facility] Complete Blood Count Auto Di ffon 03-04-2023 Mean Corpuscular HGB Conc 32.7 g/dL Normal 32.0-35.0 [facility] Comment on above: Order Comment: Reaso n for Exam Obesity, unspecified;High blood triglycerides Performed By: #### C BC #### [facility] [address] [place] [address] [place] #### RPR W RFX #### [facility] , NRBC% 0.1 /100{WBC} Normal 0-0.5 [facility] Comment on above: Order Comment: Reaso n for Exam Obesity, unspecified;High blood triglycerides Performed By: #### C BC #### [facility] [address] [place] [address] [place] #### RPR W RFX #### [facility] , Comprehensive Metabolic Pane marco 03-04-2023 Albumin [Mass/Vol] 3.7 g/dL Normal 3.5-5.7 [facility] Comment on above: Order Comment: Reaso n for Exam Obesity, unspecified;High blood triglycerides Reason for Exam Iron deficiency Reason for Exam High blood triglycerides Reason for Exam Hypothyroidism, unspecified type Performed By: #### C BC #### [facility] [address] [place] [address] [place] #### RPR W RFX #### [facility] , GFR/1.73 sq M.predicted MDRD (S/P/Bld) [Vol rate/Area] mL/min/{1.73_m2} Normal [facility] Comment on above: Order Comment: Reaso n for Exam Obesity, unspecified;High blood triglycerides Reason for Exam Iron deficiency Reason for Exam High blood triglycerides Reason for Exam Hypothyroidism, unspecified type Performed By: #### C BC #### [facility] [address] [place] [address] [place] #### RPR W RFX #### [facility] , Creatinine [Mass/volume] in Serum or PlasmaOrdered By: Nataly Toure on 03-04-2023 Creatinine [Mass/Vol] 0.72 mg/dL Normal 0.60-1.20 [facility] Comment on above: Order Comment: Reaso n for Exam Obesity, unspecified;High blood triglycerides Reason for Exam Iron deficiency Reason for Exam High blood triglycerides Reason for Exam Hypothyroidism, unspecified type Performed By: #### C BC #### [facility] [address] [place] [address] [place] #### RPR W RFX #### [facility] , Erythrocyte distribution wid th [Ratio] by Automated countOrdered By: Nataly Toure on 03-04-2023 Erythrocyte distribution width (RBC) [Ratio] 16.0 % High 11.9-15.3 [facility] Comment on above: Order Comment: Reaso n for Exam Obesity, unspecified;High blood triglycerides Performed By: #### C BC #### [facility] [address] [place] [address] #### RPR W RFX #### [facility] , Erythrocytes [#/volume] in B lood by Automated countOrdered By: Nataly Toure on 03-04-2023 RBC (Bld) [#/Vol] 4.52 10*6/uL Normal 3.60-5.00 [facility] Comment on above: Order Comment: Reaso n for Exam Obesity, unspecified;High blood triglycerides Performed By: #### C BC #### [address] #### RPR W RFX #### [facility] , Ferritin [Mass/volume] in Se rum or PlasmaOrdered By: Nataly Toure on 03-04-2023 Ferritin [Mass/Vol] 18.9 ng/mL Normal 11.0-306.8 [facility] Comment on above: Order Comment: Reaso n for Exam Obesity, unspecified;High blood triglycerides Reason for Exam Iron deficiency Reason for Exam High blood triglycerides Reason for Exam Hypothyroidism, unspecified type Performed By: #### C BC #### [facility] [address] [place] [address] #### RPR W RFX #### [facility] , Glucose [Mass/volume] in Ser um or PlasmaOrdered By: Nataly Toure on 03-04-2023 Glucose [Mass/Vol] 95 mg/dL Normal 70-100 [facility] Comment on above: ADA recommended refe rence rangeRandom Glucose Reference Range is dependent on time and content of last meal. Glucose of more than 200 mg/dL in a nonstressed, ambulatory subject supports the diagnosis of Diabetes Mellitus. Order Comment: Reaso n for Exam Obesity, unspecified;High blood triglycerides Reason for Exam Iron deficiency Reason for Exam High blood triglycerides Reason for Exam Hypothyroidism, unspecified type Result Comment: [place] om Glucose Reference Range is dependent on time and content of last meal. Glucose of more than 200 mg/dL in a nonstressed, ambulatory subject supports the diagnosis of Diabetes Mellitus. ADA recommended reference range Performed By: #### C BC #### [facility] [address] [place] [address] [place] #### RPR W RFX #### [facility] , Hematocrit [Volume Fraction] of Blood by Automated countOrdered By: Nataly Toure on 03-04-2023 Hematocrit (Bld) [Volume fraction] 34.7 % Normal 34.0-46.4 [facility] Comment on above: Order Comment: Reaso n for Exam Obesity, unspecified;High blood triglycerides Performed By: #### C BC #### [place] [address] [place] #### RPR W RFX #### [facility] , Hemoglobin [Mass/volume] in BloodOrdered By: Nataly Toure on 03-04-2023 Hemoglobin (Bld) [Mass/Vol] 11.3 g/dL Low 11.8-15.4 [facility] Comment on above: Order Comment: Reaso n for Exam Obesity, unspecified;High blood triglycerides Performed By: #### C BC #### [place] [address] [place] #### RPR W RFX #### [facility] , Iron [Mass/volume] in Serum or PlasmaOrdered By: Nataly Toure on 03-04-2023 Iron [Mass/Vol] 43 ug/dL Low 50-212 [facility] Comment on above: Order Comment: Reaso n for Exam Obesity, unspecified;High blood triglycerides Reason for Exam Iron deficiency Reason for Exam High blood triglycerides Reason for Exam Hypothyroidism, unspecified type Performed By: #### C BC #### [place] [address] [place] #### RPR W RFX #### [facility] , Iron and TIBC Profileon 02-15 % Iron Saturation 11.5 % Low 20-50 [facility] Comment on above: Order Comment: Reaso n for Exam Obesity, unspecified;High blood triglycerides Reason for Exam Iron deficiency Reason for Exam High blood triglycerides Reason for Exam Hypothyroidism, unspecified type Performed By: #### C BC #### [facility] [address] #### RPR W RFX #### [facility] , Total Iron Binding Capacity 375 ug/dL Normal 255-450 [facility] Comment on above: Order Comment: Reaso n for Exam Obesity, unspecified;High blood triglycerides Reason for Exam Iron deficiency Reason for Exam High blood triglycerides Reason for Exam Hypothyroidism, unspecified type Performed By: #### C BC #### [facility] [address] [place] [address] #### RPR W RFX #### [facility] , Iron binding capacity [Mass/ volume] in Serum or PlasmaOrdered By: Nataly Toure on 03-04-2023 Iron binding capacity [Mass/Vol] 375 ug/dL 255-450 [facility] Iron saturation [Mass Fracti on] in Serum or PlasmaOrdered By: Nataly Toure on 03-04-2023 Iron saturation [Mass fraction] 11.5 % 20-50 [facility] LDL Cholesterol Measuredon 0 03-04-2023 LDL Cholesterol Measured 81 mg/dL Normal 0-100 [facility] Comment on above: Order Comment: Reaso n for Exam Obesity, unspecified;High blood triglycerides Reason for Exam Iron deficiency Reason for Exam High blood triglycerides Reason for Exam Hypothyroidism, unspecified type Result Comment: LDL ATP III CLASSIFICATION LDL less than 100 mg/dL Optimal LDL 100-129 mg/dL Near or above optimal LDL 130-159 mg/dL Borderline high LDL 160-189 mg/dL High LDL greater than 189 mg/dL Very high Performed By: #### C USTB #### [facility] [address] [place] [address] Leukocytes [#/volume] correc kee for nucleated erythrocytes in Blood by Automated counOrdered By: Nataly Toure on 03-04-2023 WBC corrected for nucl RBC Auto (Bld) [#/Vol] 6.2 10*3/uL 3.8-11.6 [facility] Leukocytes [#/volume] in Blo od by Automated countOrdered By: Nataly Toure on 03-04-2023 WBC (Bld) [#/Vol] 6.2 10*3/uL Normal 3.8-11.6 [facility] Healthcare Comment on above: Order Comment: Reaso n for Exam Obesity, unspecified;High blood triglycerides Performed By: #### C BC #### [facility] [address] [place] [address] [place] #### RPR W RFX #### [facility] , Lipid Panelon 03-04-2023 LDL Cholesterol,Calculated Not performed Normal 0-100 [facility] Comment on above: Order Comment: Reaso n for Exam Obesity, unspecified;High blood triglycerides Reason for Exam Iron deficiency Reason for Exam High blood triglycerides Reason for Exam Hypothyroidism, unspecified type Performed By: #### C BC #### [facility] [address] [place] [address] [place] #### RPR W RFX #### [facility] , Triglyceride w/Reflex 863 mg/dL High 0-149 [facility] Comment on above: Order Comment: Reaso n for Exam Obesity, unspecified;High blood triglycerides Reason for Exam Iron deficiency Reason for Exam High blood triglycerides Reason for Exam Hypothyroidism, unspecified type Result Comment: TRIG ATP III CLASSIFICATION TRIG less than 150 mg/dL Normal TRIG 150-199 mg/dL Borderline high TRIG 200-500 mg/dL High TRIG greater than 500 mg/dL Very high Standard traceable to the Center for Disease Conrtrol and Prevention (CDC) test method. If the triglyceride result is greater than 400, LDLC and related calculations cannot be calculated and resulted. Performed By: #### C BC #### [facility] [address] [place] [address] [place] #### RPR W RFX #### [facility] , VLDL CHOLESTEROL 172 mg/dL Normal [facility] Comment on above: Order Comment: Reaso n for Exam Obesity, unspecified;High blood triglycerides Reason for Exam Iron deficiency Reason for Exam High blood triglycerides Reason for Exam Hypothyroidism, unspecified type Performed By: #### C BC #### [facility] [address] [place] [address] [place] #### RPR W RFX #### [facility] , Lymphocytes [#/volume] in Bl ood by Automated countOrdered By: Nataly Toure on 03-04-2023 Lymphocytes (Bld) [#/Vol] 1.8 10*3/uL Normal 1.00-4.8 [facility] Comment on above: Order Comment: Reaso n for Exam Obesity, unspecified;High blood triglycerides Performed By: #### C BC #### [facility] [address] [place] [address] [place] #### RPR W RFX #### [facility] , Lymphocytes/100 leukocytes i n Blood by Automated countOrdered By: Nataly Toure on 03-04-2023 Lymphocytes/100 WBC (Bld) 29.4 % Normal . [facility] Comment on above: Order Comment: Reaso n for Exam Obesity, unspecified;High blood triglycerides Performed By: #### C BC #### [facility] [address] [place] [address] [place] #### RPR W RFX #### [facility] , MCH [Entitic mass] by Automa kee countOrdered By: Nataly Toure on 03-04-2023 MCH (RBC) [Entitic mass] 25.1 pg Normal 24.7-34.3 [facility] Comment on above: Order Comment: Reaso n for Exam Obesity, unspecified;High blood triglycerides Performed By: #### C BC #### [facility] [address] [place] [address] [place] #### RPR W RFX #### [facility] , MCHC Auto (RBC) [Mass/Vol]Or dered By: Nataly Toure on 03-04-2023 MCHC (RBC) [Mass/Vol] 32.7 g/dL 32.0-35.0 [facility] MCV [Entitic volume] by Auto mated countOrdered By: Nataly Toure on 03-04-2023 MCV (RBC) [Entitic vol] 76.7 fL Low 80-100 [facility] Comment on above: Order Comment: Reaso n for Exam Obesity, unspecified;High blood triglycerides Performed By: #### C BC #### [facility] [address] [place] [address] [place] #### RPR W RFX #### [facility] , Neutrophils [#/volume] in Bl ood by Automated countOrdered By: Nataly Toure on 03-04-2023 Neutrophils (Bld) [#/Vol] 3.6 10*3/uL Normal 1.8-7.7 [facility] Comment on above: Order Comment: Reaso n for Exam Obesity, unspecified;High blood triglycerides Performed By: #### C BC #### [facility] [address] [place] [address] [place] #### RPR W RFX #### [facility] , No Panel InformationOrdered By: Nataly Toure on 03-04-2023 Estimated GFR (CKD-EPI) > 60.0 mL/Min [facility] Creatinine Clearance (Chem N/A [facility] Nucleated erythrocytes [Pres ence] in Blood by Automated countOrdered By: Nataly Toure on 03-04-2023 Nucleated RBC Auto Ql (Bld) 0.1 /100{WBC} 0-0.5 [facility] Platelet mean volume [Entiti c volume] in Blood by Automated countOrdered By: Nataly Toure on 03-04-2023 Platelet mean volume (Bld) [Entitic vol] 9.8 fL Normal 6.3-10.7 [facility] Comment on above: Order Comment: Reaso n for Exam Obesity, unspecified;High blood triglycerides Performed By: #### C BC #### [facility] [address] [place] [address] [place] #### RPR W RFX #### [facility] , Platelets [#/volume] in Bloo d by Automated countOrdered By: Nataly Toure on 03-04-2023 Platelets (Bld) [#/Vol] 217 10*3/uL Normal 150-450 [facility] Comment on above: Order Comment: Reaso n for Exam Obesity, unspecified;High blood triglycerides Performed By: #### C BC #### [facility] [address] [place] [address] #### RPR W RFX #### [facility] , Potassium [Moles/volume] in Serum or PlasmaOrdered By: Nataly Toure on 03-04-2023 Potassium [Moles/Vol] 3.8 mmol/L Normal 3.5-5.1 [facility] Comment on above: Order Comment: Reaso n for Exam Obesity, unspecified;High blood triglycerides Reason for Exam Iron deficiency Reason for Exam High blood triglycerides Reason for Exam Hypothyroidism, unspecified type Performed By: #### C BC #### [facility] [address] [place] [address] [place] #### RPR W RFX #### [facility] , Protein [Mass/volume] in Ser um or PlasmaOrdered By: Nataly Toure on 03-04-2023 Protein [Mass/Vol] 6.4 g/dL Normal 6.4-8.9 [facility] Comment on above: Order Comment: Reaso n for Exam Obesity, unspecified;High blood triglycerides Reason for Exam Iron deficiency Reason for Exam High blood triglycerides Reason for Exam Hypothyroidism, unspecified type Performed By: #### C BC #### [facility] [address] [place] [address] [place] #### RPR W RFX #### [facility] , Serum globulin measurement b y calculation (mass/volume)Ordered By: Nataly Toure on 03-04-2023 Globulin (S) [Mass/Vol] 2.7 g/dL Normal [facility] Comment on above: Order Comment: Reaso n for Exam Obesity, unspecified;High blood triglycerides Reason for Exam Iron deficiency Reason for Exam High blood triglycerides Reason for Exam Hypothyroidism, unspecified type Performed By: #### C BC #### [facility] [address] [place] [address] [place] #### RPR W RFX #### [facility] , Serum or plasma albumin/glob ulin mass ratioOrdered By: Nataly Toure on 03-04-2023 Albumin/Globulin [Mass ratio] 1.4 {ratio} Normal [facility] Comment on above: Order Comment: Reaso n for Exam Obesity, unspecified;High blood triglycerides Reason for Exam Iron deficiency Reason for Exam High blood triglycerides Reason for Exam Hypothyroidism, unspecified type Performed By: #### C BC #### [facility] [address] [place] [address] [place] #### RPR W RFX #### [facility] , Serum or plasma anion gap de terminationOrdered By: Nataly Toure on 03-04-2023 Anion gap [Moles/Vol] 11.2 mmol/L Normal 6.0-15.0 [facility] Comment on above: Order Comment: Reaso n for Exam Obesity, unspecified;High blood triglycerides Reason for Exam Iron deficiency Reason for Exam High blood triglycerides Reason for Exam Hypothyroidism, unspecified type Performed By: #### C BC #### [facility] [address] [place] [address] #### RPR W RFX #### [facility] , Serum or plasma high density lipoprotein (HDL) cholesterol measurementOrdered By: Nataly Toure on 03-04-2023 Cholesterol in HDL [Mass/Vol] 35 mg/dL Normal 23-92 [facility] Comment on above: HDL CHOL ATP-III CLA SSIFICATION Cardiovascular RiskHDL > or equal to 60 mg/dL LOWHDL < 40 mg/dL HIGH Order Comment: Reaso n for Exam Obesity, unspecified;High blood triglycerides Reason for Exam Iron deficiency Reason for Exam High blood triglycerides Reason for Exam Hypothyroidism, unspecified type Result Comment: HDL CHOL ATP-III CLASSIFICATION Cardiovascular Risk HDL > or equal to 60 mg/dL LOW HDL < 40 mg/dL HIGH Performed By: #### C BC #### [facility] [address] [place] [address] #### RPR W RFX #### [facility] , Serum or plasma total choles terol/high density lipoprotein (HDL) cholesterol mass ratOrdered By: Nataly Toure on 03-04-2023 Cholesterol.total/Chol esterol in HDL [Mass ratio] 6.6 {ratio} Normal <5.0 [facility] Comment on above: Order Comment: Reaso n for Exam Obesity, unspecified;High blood triglycerides Reason for Exam Iron deficiency Reason for Exam High blood triglycerides Reason for Exam Hypothyroidism, unspecified type Performed By: #### C BC #### [facility] [address] [place] [address] #### RPR W RFX #### [facility] , Sodium [Moles/volume] in Ser um or PlasmaOrdered By: Nataly Toure on 03-04-2023 Sodium [Moles/Vol] 139 mmol/L Normal 136-145 [facility] Comment on above: Order Comment: Reaso n for Exam Obesity, unspecified;High blood triglycerides Reason for Exam Iron deficiency Reason for Exam High blood triglycerides Reason for Exam Hypothyroidism, unspecified type Performed By: #### C BC #### [facility] [address] [place] [address] #### RPR W RFX #### [facility] , Thyroid Stim Hormone w/Rflxo n 03-04-2023 Thyroid Stim Hormone w/Rflx 1.50 u[iU]/mL Normal 0.45-5.33 [facility] Comment on above: Order Comment: Reaso n for Exam Obesity, unspecified;High blood triglycerides Reason for Exam Iron deficiency Reason for Exam High blood triglycerides Reason for Exam Hypothyroidism, unspecified type Result Comment: PERF ORMED BY: [place] [address] PATHOLOGIST DIAMOND SETTER ALLA OROZCO M.D. Performed By: #### C USTB #### [address] Thyrotropin [Units/volume] i n Serum or PlasmaOrdered By: Nataly Toure on 03-04-2023 TSH Qn 1.50 m[IU]/L 0.45-5.33 [facility] Transferrin [Mass/volume] in Serum or PlasmaOrdered By: Nataly Toure on 03-04-2023 Transferrin [Mass/Vol] 268 mg/dL Normal 203-362 [facility] Comment on above: Order Comment: Reaso n for Exam Obesity, unspecified;High blood triglycerides Reason for Exam Iron deficiency Reason for Exam High blood triglycerides Reason for Exam Hypothyroidism, unspecified type Performed By: #### C BC #### [facility] [address] [place] [address] [place] #### RPR W RFX #### [facility] , Triglyceride [Mass/volume] i n Serum or PlasmaOrdered By: Nataly Toure on 03-04-2023 Triglyceride [Mass/Vol] 863 mg/dL 0-149 [facility] Comment on above: If the triglyceride result is greater than 400, LDLC and related calculations cannot be calculated and resulted.TRIG ATP III CLASSIFICATIONTRIG less than 150 mg/dL NormalTRIG 150-199 mg/dL Borderline highTRIG 200-500 mg/dL High TRIG greater than 500 mg/dL Very highStandard traceable to the Center for Disease Conrtrol and Prevention (CDC) test method. Urea nitrogen [Mass/volume] in Serum or PlasmaOrdered By: Nataly Toure on 03-04-2023 Urea nitrogen [Mass/Vol] 11 mg/dL Normal 7-25 [facility] Comment on above: Order Comment: Reaso n for Exam Obesity, unspecified;High blood triglycerides Reason for Exam Iron deficiency Reason for Exam High blood triglycerides Reason for Exam Hypothyroidism, unspecified type Performed By: #### C BC #### [facility] [address] [place] [address] [place] #### RPR W RFX #### [facility] , Vitamin B12 ser/plasOrdered By: Nataly Toure on 03-04-2023 Cobalamin (Vitamin B12) [Mass/Vol] 303 pg/mL Normal 180-914 [facility] Comment on above: Order Comment: Reaso n for Exam Obesity, unspecified;High blood triglycerides Reason for Exam Iron deficiency Reason for Exam High blood triglycerides Reason for Exam Hypothyroidism, unspecified type Performed By: #### C USTB #### [address] Automated basophil %Ordered By: EDE OLVERA on 02-13-2023 Basophils/100 WBC (Bld) 0.7 % Normal . [facility] Comment on above: Performed By: #### C BC #### [address] #### RPR W RFX #### [facility] , Automated basophil countOrde red By: EDE OLVERA on 02-13-2023 Basophils (Bld) [#/Vol] 0.1 10*3/uL Normal 0.0-0.2 [facility] Comment on above: Result Comment: PERF ORMED BY: [place] [address] PATHOLOGIST DIAMOND SETTER ALLA OROZCO M.D. Performed By: #### C BC #### [address] #### RPR W RFX #### [facility] , Automated blood monocyte cou ntOrdered By: EDE OLVERA on 02-13-2023 Monocytes (Bld) [#/Vol] 0.8 10*3/uL Normal 0.0-0.8 [facility] Comment on above: Performed By: #### C BC #### [address] #### RPR W RFX #### [facility] , Automated eosinophil %Ordere d By: EDE OLVERA on 02-13-2023 Eosinophils/100 WBC (Bld) 0.6 % Normal . [facility] Comment on above: Performed By: #### C BC #### [place] [address] [place] #### RPR W RFX #### [facility] , Automated eosinophil countOr dered By: EDE OLVERA on 02-13-2023 Eosinophils (Bld) [#/Vol] 0.1 10*3/uL Normal 0.0-0.45 [facility] Comment on above: Performed By: #### C BC #### [address] #### RPR W RFX #### [facility] , Automated erythrocytes count in urine sediment (number/area)Ordered By: EDE OLVERA on 02-13-2023 RBC Auto (Urine sed) [#/Area] Innumerable [HPF] 0-4 [facility] Automated leukocytes count i n urine sediment (number/area)Ordered By: EDE OLVERA on 02-13-2023 WBC Auto (Urine sed) [#/Area] 5-9 [HPF] 0-4 [facility] Automated monocyte %Ordered By: EDE OLVERA on 02-13-2023 Monocytes/100 WBC (Bld) 8.8 % Normal . [facility] Comment on above: Performed By: #### C BC #### [address] #### RPR W RFX #### [facility] , Automated neutrophil %Ordere d By: EDE OLVERA on 02-13-2023 Neutrophils/100 WBC (Bld) 73.7 % Normal . [facility] Comment on above: Performed By: #### C BC #### [address] #### RPR W RFX #### [facility] , Automated urine color determ inationOrdered By: EDE OLVERA on 02-13-2023 Color (U) [place] Critically abnormal Yellow [facility] Comment on above: Order Comment: Name Collection Type:: Voided Performed By: #### C USTB #### [address] Bilirubin Test strip Ql (U)O rdered By: EDE OLVERA on 02-13-2023 Bilirubin Ql (U) Negative Negative [facility] Complete Blood Count Auto Di ffon 02-13-2023 Mean Corpuscular HGB Conc 33.8 g/dL Normal 32.0-35.0 [facility] Comment on above: Performed By: #### C BC #### [address] #### RPR W RFX #### [facility] , NRBC% 0.1 /100{WBC} Normal 0-0.5 [facility] Comment on above: Performed By: #### C BC #### [address] #### RPR W RFX #### [facility] , Dipstick and Microscopicon 1 Appearance (U) Clear Normal Clear [facility] Comment on above: Order Comment: Name Collection Type:: Voided Performed By: #### C USTB #### [address] Bacteria,Urine None Seen Normal None Seen [facility] Comment on above: Order Comment: Name Collection Type:: Voided Performed By: #### C USTB #### [address] Bilirubin,Urine Negative Normal Negative [facility] Comment on above: Order Comment: Name Collection Type:: Voided Performed By: #### C USTB #### [address] Glucose Ql (U) Normal Normal Normal [facility] Comment on above: Order Comment: Name Collection Type:: Voided Performed By: #### C USTB #### [address] Hyaline Casts,Urine 0-8 Normal 0-8 [facility] Comment on above: Order Comment: Name Collection Type:: Voided Result Comment: PERF ORMED BY: [place] [address] PATHOLOGIST DIAMOND SETTER ALLA OROZCO M.D. Performed By: #### C USTB #### [place] [address] [place] Ketones Ql (U) Trace High Negative [facility] Comment on above: Order Comment: Name Collection Type:: Voided Performed By: #### C USTB #### [address] Leukocyte esterase Test strip Ql (U) 1+ High Negative [facility] Comment on above: Order Comment: Name Collection Type:: Voided Performed By: #### C USTB #### [place] [address] [place] Nitrite,Urine Negative Normal Negative [facility] Comment on above: Order Comment: Name Collection Type:: Voided Performed By: #### C USTB #### [place] [address] [place] Occult Blood,Urine 3+ High Negative [facility] Comment on above: Order Comment: Name Collection Type:: Voided Result Comment: PERF ORMED BY: [place] [address] PATHOLOGIST DIAMOND SETTER ALLA OROZCO M.D. Performed By: #### C USTB #### [place] [address] [place] RBC,Urine Innumerable High 0-4 [facility] Comment on above: Order Comment: Name Collection Type:: Voided Performed By: #### C USTB #### [place] [address] [place] Specificy [place],Urine 1.015 Normal 1.001-1.03 0 [facility] Comment on above: Order Comment: Name Collection Type:: Voided Performed By: #### C USTB #### [place] [address] [place] Squamous Epithelial Cell,Urine 3-4 High 0-2 [facility] Comment on above: Order Comment: Name Collection Type:: Voided Performed By: #### C USTB #### [address] Urobilinogen,Urine Normal Normal Normal [facility] Comment on above: Order Comment: Name Collection Type:: Voided Performed By: #### C USTB #### [address] WBC,Urine 5-9 High 0-4 [facility] Comment on above: Order Comment: Name Collection Type:: Voided Performed By: #### C USTB #### [address] Erythrocyte distribution wid th [Ratio] by Automated countOrdered By: EDE OLVERA on 02-13-2023 Erythrocyte distribution width (RBC) [Ratio] 16.2 % High 11.9-15.3 [facility] Comment on above: Performed By: #### C BC #### [address] #### RPR W RFX #### [facility] , Erythrocytes [#/volume] in B lood by Automated countOrdered By: EDE OLVERA on 02-13-2023 RBC (Bld) [#/Vol] 4.38 10*6/uL Normal 3.60-5.00 [facility] Comment on above: Performed By: #### C BC #### [address] #### RPR W RFX #### [facility] , Hematocrit [Volume Fraction] of Blood by Automated countOrdered By: EDE OLVERA on 02-13-2023 Hematocrit (Bld) [Volume fraction] 33.2 % Low 34.0-46.4 [facility] Comment on above: Performed By: #### C BC #### [address] #### RPR W RFX #### [facility] , Hemoglobin [Mass/volume] in BloodOrdered By: EDE OLVERA on 02-13-2023 Hemoglobin (Bld) [Mass/Vol] 11.2 g/dL Low 11.8-15.4 [facility] Comment on above: Performed By: #### C BC #### [facility] [address] #### RPR W RFX #### [facility] , Ketones Auto test strip (U) [Mass/Vol]Ordered By: EDE OLVERA on 02-13-2023 Ketones (U) [Mass/Vol] Trace Negative [facility] Marco 02-13-2023 L ------ Specimen: [id number] Received: 02/16/23 Status: NICK Velazquez Num: [id number] Spec Type: Surgical Subm Dr: EDE OLVERA MD Tissues: A Placenta - 3rd Trimester (Greater than 28 weeks) (PLACENTA) Procedures: VENKATESH/Arianna, Gross/Micro L5 Age/ Patient Sex Location Account Attending Physician Rosette Alba [id number] EDE OLVERA MD SPEC NUM: [id number] RECD: 02/16/23 STATUS: NICK VELAZQUEZ NUM: [id number] MAURY: 02/13/23- SUBM DR: EDE OLVERA MD ENTERED: 02/16/[address] [facility] [address]: CARLOS TYPE: Surgical DEPT: S ORDERED: HE/3, Gross/Micro L5 ORDERED: HE/3, Gross/Micro L5 Pathological Diagnosis Placenta, With: Umbilical Cord: Three Vessel Cord, Unremarkable. Membranes: Unremarkable. Placenta: Mature Chorionic Villi, Consistent With Third Trimester Placenta. Focal Parenchymal necrosis is Identified. Clinical Information 35 IUP, history premature deliveries Gross Description Received in formalin labeled with the patient's name, date of and placenta is a 17.0 x 15.3 x 2.3 cm placenta with an attached umbilical cord and attached membranes . The landry-tejada, semitranslucent membranes insert marginally over the disc. The 25.0 x 1.7 x 1.5 cm umbilical cord inserts paramarginally 2.8 cm from the closest disc margin and contains 3 vessels on cut section. The trimmed weight is 420 g. The surface is purple-blue with focal subchorionic fibrin deposition measuring up to 2.0 cm and replacing approximately 10% of the surface.. The maternal surface is red-brown and appears intact. The cut surface is spongy, red with focal yellow-landry lesional areas measuring up to 1.5 cm and replacing less than 5% of the cut surface. Chimney Repairer sections are submitted in 3 cassettes as follows: A1 - cord and central disc A2 - membranes and marginal disc Specimen: [id number] Received: 02/16/23 Status: NICK Velazquez Num: [id number] Spec Type: Surgical Subm Dr: EDE OLVERA MD Tissues: A Placenta - 3rd Trimester (Greater than 28 weeks) (PLACENTA) Procedures: HE/3, Gross/Micro L5 Patient: Rosette Alba [id number] (Continued) Specimen: [id number] Received: 02/16/23 (Continued) Gross Description (Continued) Signed (signature on file) Ishan Richardson MD 02/17/230 Specimen: [id number] Received: 02/16/23 Status: NICK Velazquez Num: [id number] Spec Type: Surgical Subm Dr: EDE OLVERA MD Tissues: A Placenta - 3rd Trimester (Greater than 28 weeks) (PLACENTA) Procedures: HE/3, Gross/Micro L5 Patient: Rosette Alba [id number] (Continued) Specimen: [id number] Received: 02/16/23 (Continued) Gross Description (Continued) A3 - Central lesional area Microscopic Description Three H E slides reviewed. The microscopic examination confirms the diagnosis. CPT Codes 26563 Specimen: [id number] Received: 02/16/23 Status: NICK Velazquez Num: [id number] Spec Type: Surgical Subm Dr: EDE OLVERA MD Tissues: A Placenta - 3rd Trimester (Greater than 28 weeks) (PLACENTA) Procedures: HE/3, Gross/Micro L5 Patient: Arun Albaperlita Torres [id number] (Continued) Signed (signature on file) Ishan Richardson MD 02/17/230 Normal [facility] Laboratory - UrinalysisOrder ed By: EDE OLVERA on 02-13-2023 Hyaline casts LM Ql (Urine sed) 0-8 [LPF] 0-8 [facility] Leukocytes [#/volume] correc kee for nucleated erythrocytes in Blood by Automated counOrdered By: EDE OLVERA on 02-13-2023 WBC corrected for nucl RBC Auto (Bld) [#/Vol] 9.1 10*3/uL 3.8-11.6 [facility] Leukocytes [#/volume] in Blo od by Automated countOrdered By: EDE OLVERA on 02-13-2023 WBC (Bld) [#/Vol] 9.1 10*3/uL Normal 3.8-11.6 [facility] Comment on above: Performed By: #### C BC #### [address] #### RPR W RFX #### [facility] , Lymphocytes [#/volume] in Bl ood by Automated countOrdered By: EDE OLVERA on 02-13-2023 Lymphocytes (Bld) [#/Vol] 1.5 10*3/uL Normal 1.00-4.8 [facility] Comment on above: Performed By: #### C BC #### [facility] [address] [place] [address] [place] #### RPR W RFX #### [facility] , Lymphocytes/100 leukocytes i n Blood by Automated countOrdered By: EDE OLVERA on 02-13-2023 Lymphocytes/100 WBC (Bld) 16.2 % Normal . [facility] Comment on above: Performed By: #### C BC #### [address] #### RPR W RFX #### [facility] , MCH [Entitic mass] by Automa kee countOrdered By: EDE OLVERA on 02-13-2023 MCH (RBC) [Entitic mass] 25.6 pg Normal 24.7-34.3 [facility] Comment on above: Performed By: #### C BC #### [address] #### RPR W RFX #### [facility] , MCHC Auto (RBC) [Mass/Vol]Or dered By: EDE OLVERA on 02-13-2023 MCHC (RBC) [Mass/Vol] 33.8 g/dL 32.0-35.0 [facility] MCV [Entitic volume] by Auto mated countOrdered By: EDE OLVERA on 02-13-2023 MCV (RBC) [Entitic vol] 75.7 fL Low 80-100 [facility] Comment on above: Performed By: #### C BC #### [place] [address] [place] #### RPR W RFX #### [facility] , Neutrophils [#/volume] in Bl ood by Automated countOrdered By: EDE OLVERA on 02-13-2023 Neutrophils (Bld) [#/Vol] 6.7 10*3/uL Normal 1.8-7.7 [facility] Comment on above: Performed By: #### C BC #### [facility] [address] [place] [address] #### RPR W RFX #### [facility] , Nitrite Test strip Ql (U)Ord ered By: EDE OLVERA on 02-13-2023 Nitrite Ql (U) Negative Negative [facility] Nucleated erythrocytes [Pres ence] in Blood by Automated countOrdered By: EDE OLVERA on 02-13-2023 Nucleated RBC Auto Ql (Bld) 0.1 /100{WBC} 0-0.5 [facility] Platelet mean volume [Entiti c volume] in Blood by Automated countOrdered By: EDE OLVERA on 02-13-2023 Platelet mean volume (Bld) [Entitic vol] 8.5 fL Normal 6.3-10.7 [facility] Comment on above: Performed By: #### C BC #### [facility] [address] [place] [address] #### RPR W RFX #### [facility] , Platelets [#/volume] in Bloo d by Automated countOrdered By: EDE OLVERA on 02-13-2023 Platelets (Bld) [#/Vol] 178 10*3/uL Normal 150-450 [facility] Comment on above: Performed By: #### C BC #### [facility] [address] [place] [address] #### RPR W RFX #### [facility] , RPR w/rfx to Quant TP Abson 02-13-2023 RPR, Rfx Quant RPR Non-Reactive Normal Non Reactive [facility] Comment on above: Result Comment: Perf ormed at: - [facility] [place] [id number] Skiing Instructor: Sam Lopez PhD, Phone: [phone] PERFORMED BY: [place] [address] PATHOLOGIST DIAMOND SETTER ALLA OROZCO M.D. Performed By: #### C BC #### [facility] [address] [place] [address] #### RPR W RFX #### [facility] , Reagin Ab [Presence] in Seru m by RPROrdered By: EDE OLVERA on 02-13-2023 Reagin Ab RPR Ql (S) Non-Reactive Non Reactive [facility] Comment on above: Performed at: - [facility] [place] [id number] Director: Sam Lopez PhD, Phone: [phone] Specific gravity Auto test s trip (U) [Rel density]Ordered By: EDE OLVERA on 02-13-2023 Specific gravity (U) [Rel density] 1.015 1.001-1.03 0 [facility] Squamous epithelial cells de tection in urine sediment by light microscopyOrdered By: EDE OLVERA on 02-13-2023 Epithelial cells.squamous LM Ql (Urine sed) 3-4 [HPF] 0-2 [facility] Urine Cultureon 02-13-2023 Bacteria identified Cx Nom (U) No Growth 2 Days PERFORMED BY: [place] [address] PATHOLOGIST DIAMOND SETTER ALLA OROZCO M.D. Normal [facility] Comment on above: Performed By: #### C USTB #### [facility] [address] [place] [address] Urine bacteria detection by automated methodOrdered By: EDE OLVERA on 02-13-2023 Bacteria Auto Ql (U) None seen None Seen [facility] Urine clarity by refractomet ry automatedOrdered By: EDE OLVERA on 02-13-2023 Clarity Refractometry automated (U) Clear Clear [facility] Urine culture routineOrdered By: EDE OLVERA on 02-13-2023 Bacteria identified Cx Nom (U) No Growth 2 Days [facility] Urine glucose measurement by automated test strip (mass/volume)Ordered By: EDE OLVERA on 02-13-2023 Glucose Auto test strip (U) [Mass/Vol] Normal mg/dL Normal [facility] Urine hemoglobin detection b y automated test stripOrdered By: EDE OLVERA on 02-13-2023 Hemoglobin Auto test strip Ql (U) 3+ Negative [facility] Urine leukocyte esterase det ection by automated test stripOrdered By: EDE OLVERA on 02-13-2023 Leukocyte esterase Auto test strip Ql (U) 1+ Negative [facility] Urine pH measurement by auto mated test stripOrdered By: EDE OLVERA on 02-13-2023 pH (U) 6.5 [pH] Normal 5.0-9.0 [facility] Comment on above: Order Comment: Name Collection Type:: Voided Performed By: #### C USTB #### [facility] [address] Urine protein measurement by automated test strip (mass/volume)Ordered By: EDE OLVERA on 02-13-2023 Protein (U) [Mass/Vol] 30 mg/dL High Negative [facility] Comment on above: Order Comment: Name Collection Type:: Voided Performed By: #### C USTB #### [facility] [address] [place] [address] Urobilinogen Auto test strip (U) [Mass/Vol]Ordered By: EDE OLVERA on 02-13-2023 Urobilinogen (U) [Mass/Vol] Normal mg/dL Normal [facility] Amphetamine Screen Ql (U)Ord ered By: Radha Molina on 02-01-2023 Amphetamines Ql (U) Negative Negative [facility] Automated erythrocytes count in urine sediment (number/area)Ordered By: Radha Moilna on 02-01-2023 RBC Auto (Urine sed) [#/Area] 3-4 [HPF] 0-4 [facility] Automated leukocytes count i n urine sediment (number/area)Ordered By: Radha Molina on 02-01-2023 WBC Auto (Urine sed) [#/Area] 10-19 [HPF] 0-4 [facility] Automated urine color determ inationOrdered By: Radha Jesse on 02-01-2023 Color (U) Yellow Normal Yellow [facility] Comment on above: Order Comment: Name Collection Type:: Clean-Voided Midstream Performed By: #### C USTB #### [facility] [address] Automated urine sediment esteban cium oxalate crystal count by microscopy (number/high powOrdered By: Radha Jesse on 02-01-2023 Calcium oxalate crystals LM.HPF (Urine sed) [#/Area] 3+ [HPF] [facility] Barbiturates [Presence] in U rine by Screen methodOrdered By: Radha Jesse on 02-01-2023 Barbiturates Screen Ql (U) Negative Negative [facility] Benzodiazepines Screen Ql (U )Ordered By: Radha Molina on 02-01-2023 Benzodiazepines Ql (U) Negative Negative [facility] Benzoylecgonine [Presence] i n Urine by Screen methodOrdered By: Radha Jesse on 02-01-2023 Benzoylecgonine Screen Ql (U) Negative Negative [facility] Bilirubin Test strip Ql (U)O rdered By: Radhajere Molina on 02-01-2023 Bilirubin Ql (U) Negative Negative [facility] Dipstick and Microscopicon 1 04-04-2022 Appearance (U) Cloudy Critically abnormal Clear [facility] Comment on above: Order Comment: Name Collection Type:: Clean-Voided Midstream Performed By: #### C USTB #### [facility] [address] [place] [address] [place] Bacteria,Urine 1+ High None Seen [facility] Comment on above: Order Comment: Name Collection Type:: Clean-Voided Midstream Performed By: #### C USTB #### [facility] [address] [place] [address] [place] Bilirubin,Urine Negative Normal Negative [facility] Comment on above: Order Comment: Name Collection Type:: Clean-Voided Midstream Performed By: #### C USTB #### [place] [address] [place] Calcium Oxalate Crystals,Urine 3+ Normal [facility] Comment on above: Order Comment: Name Collection Type:: Clean-Voided Midstream Performed By: #### C USTB #### [place] [address] [place] Glucose Ql (U) Normal Normal Normal [facility] Comment on above: Order Comment: Name Collection Type:: Clean-Voided Midstream Performed By: #### C USTB #### [place] [address] [place] Hyaline Casts,Urine 0-8 Normal 0-8 [facility] Comment on above: Order Comment: Name Collection Type:: Clean-Voided Midstream Result Comment: PERF ORMED BY: [place] [address] PATHOLOGIST DIAMOND SETTER ALLA OROZCO M.D. Performed By: #### C USTB #### [address] Ketones Ql (U) Trace High Negative [facility] Comment on above: Order Comment: Name Collection Type:: Clean-Voided Midstream Performed By: #### C USTB #### [place] [address] [place] Leukocyte esterase Test strip Ql (U) 2+ High Negative [facility] Comment on above: Order Comment: Name Collection Type:: Clean-Voided Midstream Performed By: #### C USTB #### [place] [address] [place] Nitrite,Urine Negative Normal Negative [facility] Comment on above: Order Comment: Name Collection Type:: Clean-Voided Midstream Performed By: #### C USTB #### [place] [address] [place] Occult Blood,Urine Negative Normal Negative [facility] Comment on above: Order Comment: Name Collection Type:: Clean-Voided Midstream Result Comment: PERF ORMED BY: [address] [place] [address] PATHOLOGIST DIAMOND SETTER ALLA OROZCO M.D. Performed By: #### C USTB #### [address] Othe Crystals,Urine None Seen Normal [facility] Comment on above: Order Comment: Name Collection Type:: Clean-Voided Midstream Performed By: #### C USTB #### [address] Protein,Urine Trace High Negative [facility] Comment on above: Order Comment: Name Collection Type:: Clean-Voided Midstream Performed By: #### C USTB #### [address] RBC,Urine 3-4 Normal 0-4 [facility] Comment on above: Order Comment: Name Collection Type:: Clean-Voided Midstream Performed By: #### C USTB #### [address] Specificy [place],Urine 1.025 Normal 1.001-1.03 0 [facility] Comment on above: Order Comment: Name Collection Type:: Clean-Voided Midstream Performed By: #### C USTB #### [address] Squamous Epithelial Cell,Urine 10-19 High 0-2 [facility] Comment on above: Order Comment: Name Collection Type:: Clean-Voided Midstream Performed By: #### C USTB #### [address] Urobilinogen,Urine Normal Normal Normal [facility] Comment on above: Order Comment: Name Collection Type:: Clean-Voided Midstream Performed By: #### C USTB #### [place] [address] [place] WBC,Urine 10-19 High 0-4 [facility] Comment on above: Order Comment: Name Collection Type:: Clean-Voided Midstream Performed By: #### C USTB #### [address] [address] [place] Ketones Auto test strip (U) [Mass/Vol]Ordered By: Radha Molina on 02-01-2023 Ketones (U) [Mass/Vol] Trace Negative Fi [facility] - UrinalysisOrder ed By: Radha Molina on 02-01-2023 Hyaline casts LM Ql (Urine sed) 0-8 [LPF] 0-8 [facility] Nitrite Test strip Ql (U)Ord ered By: Radha Molina on 02-01-2023 Nitrite Ql (U) Negative Negative [facility] OB Urine Drug Screen (NO THC )on 02-01-2023 Amphetamine Screen,Urine Negative Normal Negative [facility] Comment on above: Performed By: #### C USTB #### [address] Barbiturate Screen,Urine Negative Normal Negative [facility] Comment on above: Performed By: #### C USTB #### [place] [address] [place] Benzodiazepines Screen,Urine Negative Normal Negative [facility] Comment on above: Performed By: #### C USTB #### [place] [address] [place] Cocaine Screen,Urine Negative Normal Negative [facility] Comment on above: Performed By: #### C USTB #### [place] [address] [place] Opiate Screen,Urine Negative Normal Negative [facility] Comment on above: Performed By: #### C USTB #### [place] [address] [place] Phencyclidine Screen, Urine Negative Normal Negative [facility] Comment on above: Result Comment: Thes e are unconfirmed results and should not be used for legal purposes. Drug Cut-Off Concentration: AMPH 1000 ng/mL FAVIOLA 200 ng/mL THA 200 ng/mL COCM 300 ng/mL OP 300 ng/mL PCP 25 ng/mL PERFORMED BY: [place] [address] PATHOLOGIST DIAMOND SETTER ALLA OROZCO M.D. Performed By: #### C USTB #### [facility] [address] Opiates [Presence] in Urine by Screen methodOrdered By: Radha Molina on 02-01-2023 Opiates Screen Ql (U) Negative Negative [facility] Phencyclidine Screen Ql (U)O rdered By: Radha Molina on 02-01-2023 Phencyclidine Ql (U) Negative Negative [facility] Comment on above: These are unconfirme d results and should not be used for legal purposes. Drug Cut-Off Concentration: AMPH 1000 ng/mL FAVIOLA 200 ng/mL THA 200 ng/mL COCM 300 ng/mL OP 300 ng/mL PCP 25 ng/mL Protein Auto test strip (U) [Mass/Vol]Ordered By: Radha Molina on 02-01-2023 Protein (U) [Mass/Vol] Trace mg/dL Negative F [facility] Specific gravity Auto test s trip (U) [Rel density]Ordered By: Radha Molina on 02-01-2023 Specific gravity (U) [Rel density] 1.025 1.001-1.03 0 [facility] Squamous epithelial cells de tection in urine sediment by light microscopyOrdered By: Radha Molina on 02-01-2023 Epithelial cells.squamous LM Ql (Urine sed) 10-19 [HPF] 0-2 [facility] Urine Cultureon 02-01-2023 Bacteria identified Cx Nom (U) <9,000 colonies/ml mixed bacterial skin contaminants 2 Days PERFORMED BY: [place] [address] PATHOLOGIST DIAMOND SETTER ALLA OROZCO M.D. Normal [facility] Comment on above: Performed By: #### C USTB #### [facility] [address] [place] [address] Urine bacteria detection by automated methodOrdered By: Radha Molina on 02-01-2023 Bacteria Auto Ql (U) 1+ None Seen [facility] Urine clarity by refractomet ry automatedOrdered By: Radha Molina on 02-01-2023 Clarity Refractometry automated (U) Cloudy Clear [facility] Urine culture routineOrdered By: Radha Molina on 02-01-2023 Bacteria identified Cx Nom (U) 2 Days [facility] Urine glucose measurement by automated test strip (mass/volume)Ordered By: Radha Molina on 02-01-2023 Glucose Auto test strip (U) [Mass/Vol] Normal mg/dL Normal [facility] Urine hemoglobin detection b y automated test stripOrdered By: Radha Molina on 02-01-2023 Hemoglobin Auto test strip Ql (U) Negative Negative [facility] Urine leukocyte esterase det ection by automated test stripOrdered By: Radha Molina on 02-01-2023 Leukocyte esterase Auto test strip Ql (U) 2+ Negative [facility] Urine pH measurement by auto mated test stripOrdered By: Radha Molina on 02-01-2023 pH (U) 6.0 [pH] Normal 5.0-9.0 [facility] Comment on above: Order Comment: Name Collection Type:: Clean-Voided Midstream Performed By: #### C USTB #### [facility] [address] [place] [address] Urine sediment crystal ident ification by light microscopyOrdered By: Radha Molina on 02-01-2023 Crystals LM Nom (Urine sed) None seen [HPF] [facility] Urobilinogen Auto test strip (U) [Mass/Vol]Ordered By: Radha Molina on 02-01-2023 Urobilinogen (U) [Mass/Vol] Normal mg/dL Normal [facility] Amphetamine Screen Ql (U)Ord ered By: MARY KAY CANTU on 01-30-2023 Amphetamines Ql (U) Negative Negative [facility] Automated erythrocytes count in urine sediment (number/area)Ordered By: MARY KAY CANTU on 01-30-2023 RBC Auto (Urine sed) [#/Area] 0-1 [HPF] 0-4 [facility] Automated leukocytes count i n urine sediment (number/area)Ordered By: MARY KAY CANTU on 01-30-2023 WBC Auto (Urine sed) [#/Area] 3-4 [HPF] 0-4 [facility] Automated urine color determ inationOrdered By: MARY KAY CANTU on 01-30-2023 Color (U) Yellow Normal Yellow [facility] Comment on above: Order Comment: Name Collection Type:: Clean-Voided Midstream Performed By: #### O BUDS, ADDONUAPLUS #### [facility] [address] [place] [id number] [place] Barbiturates [Presence] in U rine by Screen methodOrdered By: MARY KAY CANTU on 01-30-2023 Barbiturates Screen Ql (U) Negative Negative [facility] Benzodiazepines Screen Ql (U )Ordered By: MARY KAY CANTU on 01-30-2023 Benzodiazepines Ql (U) Negative Negative [facility] Benzoylecgonine [Presence] i n Urine by Screen methodOrdered By: MARY KAY CANTU on 01-30-2023 Benzoylecgonine Screen Ql (U) Negative Negative [facility] Bilirubin Test strip Ql (U)O rdered By: MARY KAY CANTU on 01-30-2023 Bilirubin Ql (U) Negative Negative [facility] Dipstick and Microscopicon 1 04-02-2022 Appearance (U) Clear Normal Clear [facility] Comment on above: Order Comment: Name Collection Type:: Clean-Voided Midstream Performed By: #### O BUDS, ADDONUAPLUS #### [facility] [address] [place] [id number] [place] Bacteria,Urine None Seen Normal None Seen [facility] Comment on above: Order Comment: Name Collection Type:: Clean-Voided Midstream Performed By: #### O BUDS, ADDONUAPLUS #### [facility] [address] [place] [address] [place] Bilirubin,Urine Negative Normal Negative [facility] Comment on above: Order Comment: Name Collection Type:: Clean-Voided Midstream Performed By: #### O BUDS, ADDONUAPLUS #### [facility] [address] [place] [address] [place] Glucose Ql (U) Normal Normal Normal [facility] Comment on above: Order Comment: Name Collection Type:: Clean-Voided Midstream Performed By: #### O BUDS, ADDONUAPLUS #### [place] [address] [place] Hyaline Casts,Urine 0-8 Normal 0-8 [facility] Comment on above: Order Comment: Name Collection Type:: Clean-Voided Midstream Result Comment: PERF ORMED BY: [place] [address] PATHOLOGIST DIAMOND SETTER ALLA OROZCO M.D. Performed By: #### O BUDS, ADDONUAPLUS #### [place] [address] [place] Ketones Ql (U) Negative Normal Negative [facility] Comment on above: Order Comment: Name Collection Type:: Clean-Voided Midstream Performed By: #### O BUDS, ADDONUAPLUS #### [place] [address] [place] Leukocyte esterase Test strip Ql (U) 2+ High Negative [facility] Comment on above: Order Comment: Name Collection Type:: Clean-Voided Midstream Performed By: #### O BUDS, ADDONUAPLUS #### [place] [address] [place] Nitrite,Urine Negative Normal Negative [facility] Comment on above: Order Comment: Name Collection Type:: Clean-Voided Midstream Performed By: #### O BUDS, ADDONUAPLUS #### [place] [address] [place] Occult Blood,Urine Negative Normal Negative [facility] Comment on above: Order Comment: Name Collection Type:: Clean-Voided Midstream Result Comment: PERF ORMED BY: [place] [address] PATHOLOGIST DIAMOND SETTER ALLA OROZCO M.D. Performed By: #### O BUDS, ADDONUAPLUS #### [place] [address] [place] Protein,Urine Negative Normal Negative [facility] Comment on above: Order Comment: Name Collection Type:: Clean-Voided Midstream Performed By: #### O BUDS, ADDONUAPLUS #### [address] RBC LM.HPF (Urine sed) [#/Area] 0 /[HPF] Normal 0-4 [facility] Comment on above: Order Comment: Name Collection Type:: Clean-Voided Midstream Performed By: #### O BUDS, ADDONUAPLUS #### [address] Specificy [place],Urine 1.017 Normal 1.001-1.03 0 [facility] Comment on above: Order Comment: Name Collection Type:: Clean-Voided Midstream Performed By: #### O BUDS, ADDONUAPLUS #### [address] Squamous Epithelial Cell,Urine 1-2 Normal 0-2 [facility] Comment on above: Order Comment: Name Collection Type:: Clean-Voided Midstream Performed By: #### O BUDS, ADDONUAPLUS #### [address] Urobilinogen,Urine Normal Normal Normal [facility] Comment on above: Order Comment: Name Collection Type:: Clean-Voided Midstream Performed By: #### O BUDS, ADDONUAPLUS #### [address] WBC,Urine 3-4 Normal 0-4 [facility] Comment on above: Order Comment: Name Collection Type:: Clean-Voided Midstream Performed By: #### O BUDS, ADDONUAPLUS #### [address] Ketones Auto test strip (U) [Mass/Vol]Ordered By: MARY KAY CANTU on 01-30-2023 Ketones (U) [Mass/Vol] Negative Negative [facility] - UrinalysisOrder ed By: MARY KAY CANTU on 01-30-2023 Hyaline casts LM Ql (Urine sed) 0-8 [LPF] 0-8 [facility] Nitrite Test strip Ql (U)Ord ered By: MARY KAY CANTU on 01-30-2023 Nitrite Ql (U) Negative Negative [facility] OB Urine Drug Screen (NO THC )on 01-30-2023 Amphetamine Screen,Urine Negative Normal Negative [facility] Comment on above: Performed By: #### O BUDS, ADDONUAPLUS #### [address] Barbiturate Screen,Urine Negative Normal Negative [facility] Comment on above: Performed By: #### O BUDS, ADDONUAPLUS #### [address] Benzodiazepines Screen,Urine Negative Normal Negative [facility] Comment on above: Performed By: #### O BUDS, ADDONUAPLUS #### [address] Cocaine Screen,Urine Negative Normal Negative [facility] Comment on above: Performed By: #### O BUDS, ADDONUAPLUS #### [address] Opiate Screen,Urine Negative Normal Negative [facility] Comment on above: Performed By: #### O BUDS, ADDONUAPLUS #### [address] Phencyclidine Screen, Urine Negative Normal Negative [facility] Comment on above: Result Comment: Thes e are unconfirmed results and should not be used for legal purposes. Drug Cut-Off Concentration: AMPH 1000 ng/mL FAVIOLA 200 ng/mL THA 200 ng/mL COCM 300 ng/mL OP 300 ng/mL PCP 25 ng/mL PERFORMED BY: [place] [address] PATHOLOGIST DIAMOND SETTER ALLA OROZCO M.D. Performed By: #### O BUDS, ADDONUAPLUS #### [address] Opiates [Presence] in Urine by Screen methodOrdered By: MARY KAY CANTU on 01-30-2023 Opiates Screen Ql (U) Negative Negative [facility] Phencyclidine Screen Ql (U)O rdered By: MARY KAY CANTU on 01-30-2023 Phencyclidine Ql (U) Negative Negative [facility] Comment on above: These are unconfirme d results and should not be used for legal purposes. Drug Cut-Off Concentration: AMPH 1000 ng/mL FAVIOLA 200 ng/mL THA 200 ng/mL COCM 300 ng/mL OP 300 ng/mL PCP 25 ng/mL Protein Auto test strip (U) [Mass/Vol]Ordered By: MARY KAY CANTU on 01-30-2023 Protein (U) [Mass/Vol] Negative Negative [facility] Specific gravity Auto test s trip (U) [Rel density]Ordered By: MARY KAY CANTU on 01-30-2023 Specific gravity (U) [Rel density] 1.017 1.001-1.03 0 [facility] Squamous epithelial cells de tection in urine sediment by light microscopyOrdered By: MARY KAY CANTU on 01-30-2023 Epithelial cells.squamous LM Ql (Urine sed) 1-2 [HPF] 0-2 [facility] Urine bacteria detection by automated methodOrdered By: MARY KAY CANTU on 01-30-2023 Bacteria Auto Ql (U) None seen None Seen [facility] Urine clarity by refractomet ry automatedOrdered By: MARY KAY CANTU on 01-30-2023 Clarity Refractometry automated (U) Clear Clear [facility] Urine glucose measurement by automated test strip (mass/volume)Ordered By: MARY KAY CANTU on 01-30-2023 Glucose Auto test strip (U) [Mass/Vol] Normal mg/dL Normal [facility] Urine hemoglobin detection b y automated test stripOrdered By: MARY KAY CANTU on 01-30-2023 Hemoglobin Auto test strip Ql (U) Negative Negative [facility] Urine leukocyte esterase det ection by automated test stripOrdered By: MARY KAY CANTU on 01-30-2023 Leukocyte esterase Auto test strip Ql (U) 2+ Negative [facility] Urine pH measurement by auto mated test stripOrdered By: MARY KAY CANTU on 01-30-2023 pH (U) 6.5 [pH] Normal 5.0-9.0 [facility] Comment on above: Order Comment: Name Collection Type:: Clean-Voided Midstream Performed By: #### O BUDS, ADDONUAPLUS #### [address] Urobilinogen Auto test strip (U) [Mass/Vol]Ordered By: MARY KAY CANTU on 01-30-2023 Urobilinogen (U) [Mass/Vol] Normal mg/dL Normal [facility] S. agalactiae Org specific c x Ql (Unsp spec)Ordered By: Radha Molina on 01-05-2023 Group B Streptococcus Culture Strep. agalactiae Grp B [facility] Strep B Cultureon 01-05-2023 Strep B Culture ORGANISM: Strep. agalactiae Grp B (O:B) PERFORMED BY: [place] [address] PATHOLOGIST DIAMOND SETTER ALLA OROZCO M.D. Normal [facility] Comment on above: Performed By: #### C USTB #### [address] Glucose Tolerance 3 Houron 02-21-2022 Glucose Tolerance 3 Hour Normal [facility] Comment on above: Result Comment: FAST ING 88 Col: 12/22/22 0803 1HR GLU 146 Col: 12/22/22 1017 2HR GLU 126 Col: 12/22/22 1117 3HR GLU 144 Col: 12/22/22 1217 NON-GESTATIONAL GESTATIONAL FASTING 70-100 < 92 1 HOUR < 200 < 180 2 HOUR < 140 < 153 3 HOUR NOT ESTABLISHED < 140 PERFORMED BY: [place] [address] PATHOLOGIST DIAMOND SETTER ALLA OROZCO M.D. Performed By: #### G TT3 #### [place] [id number] [facility] Serum or plasma glucose tole nabeel 3 hours panelOrdered By: Radha Molina on 12-22-2022 Glucose tolerance 3 hours panel See comment [facility] Comment on above: FASTING 88 Col: 1109/06 0803 1HR GLU 146 Col: 12/22/22 1017 2HR GLU 126 Col: 12/22/22 1117 3HR GLU 144 Col: 12/22/22 1217 fibronectinOrdered By: Radha Molina on 12-08-2022 Fibronectin. (Vag fld) [Mass/Vol] Negative Negative [facility] Alanine aminotransferase [En zymatic activity/volume] in Serum or PlasmaOrdered By: Nataly Toure on 12-03-2022 ALT [Catalytic activity/Vol] 7 U/L 7-52 [facility] Albumin [Mass/volume] in Ser um or Plasma by Bromocresol green (BCG) dye binding methoOrdered By: Nataly Toure on 12-03-2022 Albumin BCG dye [Mass/Vol] 3.4 g/dL 3.5-5.7 [facility] Alkaline phosphatase [Enzyma tic activity/volume] in Serum or PlasmaOrdered By: Nataly Toure on 12-03-2022 ALP [Catalytic activity/Vol] 79 U/L 34-104 [facility] Aspartate aminotransferase [ Enzymatic activity/volume] in Serum or PlasmaOrdered By: Nataly Toure on 12-03-2022 AST [Catalytic activity/Vol] 9 U/L 13-39 [facility] Basophils Auto (Bld) [#/Vol] Ordered By: Natayl Toure on 12-03-2022 Basophils (Bld) [#/Vol] 0.0 10*3/uL 0.0-0.2 [facility] Basophils/100 WBC Auto (Bld) Ordered By: Nataly Toure on 12-03-2022 Basophils/100 WBC (Bld) 0.1 % . [facility] Bilirubin.total [Mass/volume ] in Serum or PlasmaOrdered By: Nataly Toure on 12-03-2022 Bilirubin [Mass/Vol] 0.2 mg/dL 0.3-1.0 [facility] Calcium [Mass/volume] in Ser um or PlasmaOrdered By: Nataly Toure on 12-03-2022 Calcium [Mass/Vol] 8.9 mg/dL 8.6-10.3 [facility] Carbon dioxide, total [Moles /volume] in Serum or PlasmaOrdered By: Nataly Toure on 12-03-2022 CO2 [Moles/Vol] 21.9 mmol/L 21.0-31.0 [facility] Chloride [Moles/volume] in S rosa or PlasmaOrdered By: Nataly Toure on 12-03-2022 Chloride [Moles/Vol] 102 mmol/L 98-107 [facility] Creatinine [Mass/volume] in Serum or PlasmaOrdered By: Nataly Toure on 12-03-2022 Creatinine [Mass/Vol] 0.49 mg/dL 0.60-1.20 [facility] Eosinophils Auto (Bld) [#/Vo l]Ordered By: Nataly Toure on 12-03-2022 Eosinophils (Bld) [#/Vol] 0.0 10*3/uL 0.0-0.45 [facility] Eosinophils/100 WBC Auto (Bl d)Ordered By: Nataly Toure on 12-03-2022 Eosinophils/100 WBC (Bld) 0.3 % . [facility] Erythrocyte distribution wid th Auto (RBC) [Ratio]Ordered By: Nataly Toure on 12-03-2022 Erythrocyte distribution width (RBC) [Ratio] 14.4 % 11.9-15.3 [facility] Globulin Calc (S) [Mass/Vol] Ordered By: Nataly Toure on 12-03-2022 Globulin (S) [Mass/Vol] 3.3 g/dL [facility] Glucose [Mass/volume] in Ser um or PlasmaOrdered By: Nataly Toure on 12-03-2022 Glucose [Mass/Vol] 94 mg/dL 70-100 [facility] Comment on above: ADA recommended refe rence rangeRandom Glucose Reference Range is dependent on time and content of last meal. Glucose of more than 200 mg/dL in a nonstressed, ambulatory subject supports the diagnosis of Diabetes Mellitus. Hematocrit Auto (Bld) [Volum e fraction]Ordered By: Nataly Toure on 12-03-2022 Hematocrit (Bld) [Volume fraction] 33.8 % 34.0-46.4 [facility] Hemoglobin [Mass/volume] in BloodOrdered By: Nataly Toure on 12-03-2022 Hemoglobin (Bld) [Mass/Vol] 11.0 g/dL 11.8-15.4 [facility] Iron [Mass/volume] in Serum or PlasmaOrdered By: Nataly Toure on 12-03-2022 Iron [Mass/Vol] 38 ug/dL 50-212 [facility] Iron binding capacity [Mass/ volume] in Serum or PlasmaOrdered By: Nataly Toure on 12-03-2022 Iron binding capacity [Mass/Vol] 587 ug/dL 255-450 [facility] Iron saturation [Mass Fracti on] in Serum or PlasmaOrdered By: Nataly Toure on 12-03-2022 Iron saturation [Mass fraction] 6.5 % 20-50 [facility] Leukocytes [#/volume] correc kee for nucleated erythrocytes in Blood by Automated counOrdered By: Nataly Toure on 12-03-2022 WBC corrected for nucl RBC Auto (Bld) [#/Vol] 11.2 10*3/uL 3.8-11.6 [facility] Lymphocytes Auto (Bld) [#/Vo l]Ordered By: Nataly Toure on 12-03-2022 Lymphocytes (Bld) [#/Vol] 1.8 10*3/uL 1.00-4.8 [facility] Lymphocytes/100 WBC Auto (Bl d)Ordered By: Nataly Toure on 12-03-2022 Lymphocytes/100 WBC (Bld) 16.0 % . [facility] MCH Auto (RBC) [Entitic mass ]Ordered By: Nataly Toure on 12-03-2022 MCH (RBC) [Entitic mass] 26.0 pg 24.7-34.3 [facility] MCHC Auto (RBC) [Mass/Vol]Or dered By: Nataly Toure on 12-03-2022 MCHC (RBC) [Mass/Vol] 32.5 g/dL 32.0-35.0 [facility] MCV Auto (RBC) [Entitic vol] Ordered By: Nataly Toure on 12-03-2022 MCV (RBC) [Entitic vol] 80.1 fL 80-100 [facility] Magnesium [Mass/volume] in S rosa or PlasmaOrdered By: Nataly Toure on 12-03-2022 Magnesium [Mass/Vol] 1.7 mg/dL 1.9-2.7 [facility] Monocytes Auto (Bld) [#/Vol] Ordered By: Nataly Toure on 12-03-2022 Monocytes (Bld) [#/Vol] 0.8 10*3/uL 0.0-0.8 [facility] Monocytes/100 WBC Auto (Bld) Ordered By: Nataly Toure on 12-03-2022 Monocytes/100 WBC (Bld) 6.9 % . [facility] Neutrophils Auto (Bld) [#/Vo l]Ordered By: Nataly Toure on 12-03-2022 Neutrophils (Bld) [#/Vol] 8.6 10*3/uL 1.8-7.7 [facility] Neutrophils/100 WBC Auto (Bl d)Ordered By: Nataly Toure on 12-03-2022 Neutrophils/100 WBC (Bld) 76.7 % . [facility] No Panel InformationOrdered By: Nataly Toure on 12-03-2022 Estimated GFR (CKD-EPI) > 60.0 mL/Min [facility] Creatinine Clearance (Chem N/A [facility] Nucleated erythrocytes [Pres ence] in Blood by Automated countOrdered By: Nataly Toure on 12-03-2022 Nucleated RBC Auto Ql (Bld) 0.0 /100{WBC} 0-0.5 [facility] Platelet mean volume Auto (B ld) [Entitic vol]Ordered By: Nataly Toure on 12-03-2022 Platelet mean volume (Bld) [Entitic vol] 9.0 fL 6.3-10.7 [facility] Platelets Auto (Bld) [#/Vol] Ordered By: Nataly Toure on 12-03-2022 Platelets (Bld) [#/Vol] 205 10*3/uL 150-450 [facility] Potassium [Moles/volume] in Serum or PlasmaOrdered By: Nataly Toure on 12-03-2022 Potassium [Moles/Vol] 3.8 mmol/L 3.5-5.1 [facility] Protein [Mass/volume] in Ser um or PlasmaOrdered By: Nataly Toure on 12-03-2022 Protein [Mass/Vol] 6.7 g/dL 6.4-8.9 [facility] RBC Auto (Bld) [#/Vol]Ordere d By: Nataly Toure on 12-03-2022 RBC (Bld) [#/Vol] 4.22 10*6/uL 3.60-5.00 [facility] Serum or plasma albumin/glob ulin mass ratioOrdered By: Nataly Toure on 12-03-2022 Albumin/Globulin [Mass ratio] 1.0 {ratio} [facility] Serum or plasma anion gap de terminationOrdered By: Nataly Toure on 12-03-2022 Anion gap [Moles/Vol] 17.9 mmol/L 6.0-15.0 [facility] Sodium [Moles/volume] in Ser um or PlasmaOrdered By: Nataly Toure on 12-03-2022 Sodium [Moles/Vol] 138 mmol/L 136-145 [facility] Thyrotropin [Units/volume] i n Serum or PlasmaOrdered By: Nataly Toure on 12-03-2022 TSH Qn 2.65 m[IU]/L 0.45-5.33 [facility] Transferrin [Mass/volume] in Serum or PlasmaOrdered By: Nataly Toure on 12-03-2022 Transferrin [Mass/Vol] 419 mg/dL 203-362 [facility] Urea nitrogen [Mass/volume] in Serum or PlasmaOrdered By: Nataly Jerniganc on 12-03-2022 Urea nitrogen [Mass/Vol] 11 mg/dL 7-25 [facility] WBC Auto (Bld) [#/Vol]Ordere d By: Nataly Toure on 12-03-2022 WBC (Bld) [#/Vol] 11.2 10*3/uL 3.8-11.6 [facility] Activated partial thrombopla stin time (aPTT) in platelet poor plasma by coagulation aOrdered By: Staci Ortiz on 12-01-2022 aPTT Coag (PPP) [Time] 26.8 s 25.1-36.5 [facility] Comment on above: A hematocrit value g reater than 55% may lead to inaccurate results in coagulation testing. Patients having hematocrit values >55% require a special collection tube for coagulation studies. Please contact the laboratory at [phone] for redraw instructions. Automated erythrocytes count in urine sediment (number/area)Ordered By: Staci Ortiz on 12-01-2022 RBC Auto (Urine sed) [#/Area] 0-1 [HPF] 0-4 [facility] Automated leukocytes count i n urine sediment (number/area)Ordered By: Staci Ortiz on 12-01-2022 WBC Auto (Urine sed) [#/Area] 3-4 [HPF] 0-4 [facility] Basophils Auto (Bld) [#/Vol] Ordered By: Staci Ortiz on 12-01-2022 Basophils (Bld) [#/Vol] 0.0 10*3/uL 0.0-0.2 [facility] Basophils/100 WBC Auto (Bld) Ordered By: Staci Ortiz on 12-01-2022 Basophils/100 WBC (Bld) 0.3 % . [facility] Bilirubin Test strip Ql (U)O rdered By: Staci Ortiz on 12-01-2022 Bilirubin Ql (U) Negative Negative [facility] COVID CepheidOrdered By: Noah Ortiz on 12-01-2022 SARS-CoV-2 (COVID-19) Ab IA Ql Negative Negative [facility] Comment on above: This is a duplicate CepWisecamid Xpert Xpress CoV-2/Flu/RSV Plus RNA by RT-PCR result to be used for statistical tracking purpose only. COVID-19 Detected/Not Detect edOrdered By: Staci Ortiz on 12-01-2022 SARS-CoV-2 (COVID-19) RNA SVETLANA+non-probe Ql (Nph) Not detected Not Detecte [facility] Comment on above: This is a duplicate RP2.1 COVID (PCR) result to be used for statistical tracking purpose only. Calcium [Mass/volume] in Ser um or PlasmaOrdered By: Staci Ortiz on 12-01-2022 Calcium [Mass/Vol] 9.1 mg/dL 8.6-10.3 [facility] Carbon dioxide, total [Moles /volume] in Serum or PlasmaOrdered By: Staci Ortiz on 12-01-2022 CO2 [Moles/Vol] 22.4 mmol/L 21.0-31.0 [facility] Chloride [Moles/volume] in S rosa or PlasmaOrdered By: Staci Ortiz on 12-01-2022 Chloride [Moles/Vol] 102 mmol/L 98-107 [facility] Color Auto (U)Ordered By: Co urmaynor Ortiz on 12-01-2022 Color (U) Yellow Yellow [facility] Creatinine [Mass/volume] in Serum or PlasmaOrdered By: Staci Ortiz on 12-01-2022 Creatinine [Mass/Vol] 0.51 mg/dL 0.60-1.20 [facility] Eosinophils Auto (Bld) [#/Vo l]Ordered By: Staci Ortiz on 12-01-2022 Eosinophils (Bld) [#/Vol] 0.0 10*3/uL 0.0-0.45 [facility] Eosinophils/100 WBC Auto (Bl d)Ordered By: Staci Ortiz on 12-01-2022 Eosinophils/100 WBC (Bld) 0.4 % . [facility] Erythrocyte distribution wid th Auto (RBC) [Ratio]Ordered By: Staci Ortiz on 12-01-2022 Erythrocyte distribution width (RBC) [Ratio] 14.5 % 11.9-15.3 [facility] Fibrin D-dimer [Presence] in Platelet poor plasma by Latex agglutinationOrdered By: Staci Ortiz on 12-01-2022 Fibrin D-dimer LA Ql (PPP) 231 ng/mL 0-243 [facility] Comment on above: The reference range for D-dimer is <243 ng/mL D-dimer units.D-dimer results must be used in conjunction with a clinicalpretest probability (PTP) assessment model for deep veinthrombosis (DVT) and pulmonary embolism (PE). Results <230ng/mL d-dimer units can be used as a negative predictor inpatients with low or moderate probability for DVT/PE.Results above the exclusion threshold of 230 ng/ml D-dimerunits for DVT/PE may indicate the need for furtherdiagnostic testing.D-Dimer can be increased in hospitalized patients due toco-morbid conditions.A hematocrit value greater than 55% may lead to inaccurate results in coagulation testing. Patients having hematocrit values >55% require a special collection tube for coagulation studies. Please contact the laboratory at [phone] for redraw instructions. Glucose [Mass/volume] in Ser um or PlasmaOrdered By: Staci Ortiz on 12-01-2022 Glucose [Mass/Vol] 88 mg/dL 70-100 [facility] Comment on above: ADA recommended refe rence rangeRandom Glucose Reference Range is dependent on time and content of last meal. Glucose of more than 200 mg/dL in a nonstressed, ambulatory subject supports the diagnosis of Diabetes Mellitus. HCG ( test) IA.rapi d Ql (U)Ordered By: Staci Ortiz on 12-01-2022 HCG ( test) Ql (U) Positive [facility] Hematocrit Auto (Bld) [Volum e fraction]Ordered By: Staci Ortiz on 12-01-2022 Hematocrit (Bld) [Volume fraction] 34.2 % 34.0-46.4 [facility] Hemoglobin [Mass/volume] in BloodOrdered By: Staci Ortiz on 12-01-2022 Hemoglobin (Bld) [Mass/Vol] 11.3 g/dL 11.8-15.4 [facility] INR in Platelet poor plasma by Coagulation assayOrdered By: Staci Ortiz on 12-01-2022 INR Coag (PPP) [Relative time] 0.9 {INR} [facility] Comment on above: INR Therapeutic Rang e A) Pre- and Peroperative OAT started two weeks before surgery. NOT HIP SURGERY: 1.5 - 2.5 HIP SURGERY: 2 - 3B) Primary and secondary prevention of venous THROMBOSIS: 2 - 3C) Active venous thrombosis, pulmonary embolismand prevention of recurrent venous thrombosis: 2 - 3D) Prevention of arterial thromboembolismincluding patients with mechanical heart valves: 3 - 4.5 Ketones Auto test strip (U) [Mass/Vol]Ordered By: Staci Ortiz on 12-01-2022 Ketones (U) [Mass/Vol] Negative Negative Fi [facility] - UrinalysisOrder ed By: Staci Ortiz on 12-01-2022 Hyaline casts LM Ql (Urine sed) 0-8 [LPF] 0-8 [facility] Leukocytes [#/volume] correc kee for nucleated erythrocytes in Blood by Automated counOrdered By: Staci Ortiz on 12-01-2022 WBC corrected for nucl RBC Auto (Bld) [#/Vol] 12.1 10*3/uL 3.8-11.6 [facility] Lymphocytes Auto (Bld) [#/Vo l]Ordered By: Staci Ortiz on 12-01-2022 Lymphocytes (Bld) [#/Vol] 1.8 10*3/uL 1.00-4.8 [facility] Lymphocytes/100 WBC Auto (Bl d)Ordered By: Staci Ortiz on 12-01-2022 Lymphocytes/100 WBC (Bld) 14.9 % . [facility] MCH Auto (RBC) [Entitic mass ]Ordered By: Staci Ortiz on 12-01-2022 MCH (RBC) [Entitic mass] 26.4 pg 24.7-34.3 [facility] MCHC Auto (RBC) [Mass/Vol]Or dered By: Staci Ortiz on 12-01-2022 MCHC (RBC) [Mass/Vol] 33.1 g/dL 32.0-35.0 [facility] MCV Auto (RBC) [Entitic vol] Ordered By: Staci Ortiz on 12-01-2022 MCV (RBC) [Entitic vol] 79.7 fL 80-100 [facility] Monocyte distribution width [Entitic volume] in Blood by AutomatedOrdered By: Staci Ortiz on 12-01-2022 Monocyte distribution width Auto (Bld) [Entitic vol] 16.82 % 0.00-20.00 [facility] Monocytes Auto (Bld) [#/Vol] Ordered By: Staci Ortiz on 12-01-2022 Monocytes (Bld) [#/Vol] 0.9 10*3/uL 0.0-0.8 [facility] Monocytes/100 WBC Auto (Bld) Ordered By: Staci Ortiz on 12-01-2022 Monocytes/100 WBC (Bld) 7.6 % . [facility] Natriuretic peptide B [Mass/ Vol]Ordered By: Staci Ortiz on 12-01-2022 Natriuretic peptide B (Bld) [Mass/Vol] 10.0 pg/mL 5-100 [facility] Neutrophils Auto (Bld) [#/Vo l]Ordered By: Staci Ortiz on 12-01-2022 Neutrophils (Bld) [#/Vol] 9.3 10*3/uL 1.8-7.7 [facility] Neutrophils/100 WBC Auto (Bl d)Ordered By: Staci Ortiz on 12-01-2022 Neutrophils/100 WBC (Bld) 76.8 % . [facility] Nitrite Test strip Ql (U)Ord ered By: Staci Ortiz on 12-01-2022 Nitrite Ql (U) Negative Negative [facility] No Panel InformationOrdered By: Staci Ortiz on 12-01-2022 Estimated GFR (CKD-EPI) > 60.0 mL/Min [facility] Creatinine Clearance (Chem 194.78 [facility] Nucleated erythrocytes [Pres ence] in Blood by Automated countOrdered By: Staci Ortiz on 12-01-2022 Nucleated RBC Auto Ql (Bld) 0.0 /100{WBC} 0-0.5 [facility] Platelet mean volume Auto (B ld) [Entitic vol]Ordered By: Staci Ortiz on 12-01-2022 Platelet mean volume (Bld) [Entitic vol] 8.8 fL 6.3-10.7 [facility] Platelets Auto (Bld) [#/Vol] Ordered By: Staci Ortiz on 12-01-2022 Platelets (Bld) [#/Vol] 212 10*3/uL 150-450 [facility] Potassium [Moles/volume] in Serum or PlasmaOrdered By: Staci Ortiz on 12-01-2022 Potassium [Moles/Vol] 3.7 mmol/L 3.5-5.1 [facility] Protein Auto test strip (U) [Mass/Vol]Ordered By: Staci Ortiz on 12-01-2022 Protein (U) [Mass/Vol] Negative Negative [facility] Prothrombin time (PT)Ordered By: Staci Ortiz on 12-01-2022 PT Coag (PPP) [Time] 11.3 s 9.0-12.9 [facility] Comment on above: A hematocrit value g reater than 55% may lead to inaccurate results in coagulation testing. Patients having hematocrit values >55% require a special collection tube for coagulation studies. Please contact the laboratory at [phone] for redraw instructions. RBC Auto (Bld) [#/Vol]Ordere d By: Staci Ortiz on 12-01-2022 RBC (Bld) [#/Vol] 4.29 10*6/uL 3.60-5.00 [facility] Respiratory pathogens DNA an d RNA panel - Nasopharynx by SVETLANA with non-probe detectionOrdered By: Staci Ortiz on 12-01-2022 Respiratory pathogens DNA and RNA panel SVETLANA+non-probe (Nph) [facility] Respiratory pathogens DNA and RNA panel SVETLANA+non-probe (Nph) [facility] Serum or plasma anion gap de terminationOrdered By: Staci Ortiz on 12-01-2022 Anion gap [Moles/Vol] 13.3 mmol/L 6.0-15.0 [facility] Sodium [Moles/volume] in Ser um or PlasmaOrdered By: Staci Ortiz on 12-01-2022 Sodium [Moles/Vol] 134 mmol/L 136-145 [facility] Specific gravity Auto test s trip (U) [Rel density]Ordered By: Staci Ortiz on 12-01-2022 Specific gravity (U) [Rel density] 1.021 1.001-1.03 0 [facility] Squamous epithelial cells de tection in urine sediment by light microscopyOrdered By: Staci Ortiz on 12-01-2022 Epithelial cells.squamous LM Ql (Urine sed) 5-9 [HPF] 0-2 [facility] Troponin I.cardiac [Mass/vol ume] in Serum or Plasma by Detection limit <= 0.01 ng/Ordered By: Staci Ortiz on 12-01-2022 Troponin I.cardiac DL <= 0.01 ng/mL [Mass/Vol] < 2.3 pg/mL 0.0-15.0 [facility] Urea nitrogen [Mass/volume] in Serum or PlasmaOrdered By: Staci Ortiz on 12-01-2022 Urea nitrogen [Mass/Vol] 9 mg/dL 7-25 [facility] Urine bacteria detection by automated methodOrdered By: Staci Ortiz on 12-01-2022 Bacteria Auto Ql (U) None seen None Seen [facility] Urine clarity by refractomet ry automatedOrdered By: Staci Ortiz on 12-01-2022 Clarity Refractometry automated (U) Cloudy Clear [facility] Urine glucose measurement by automated test strip (mass/volume)Ordered By: Staci Ortiz on 12-01-2022 Glucose Auto test strip (U) [Mass/Vol] Normal mg/dL Normal [facility] Urine hemoglobin detection b y automated test stripOrdered By: Staci Ortiz on 12-01-2022 Hemoglobin Auto test strip Ql (U) Negative Negative [facility] Urine leukocyte esterase det ection by automated test stripOrdered By: Staci Ortiz on 12-01-2022 Leukocyte esterase Auto test strip Ql (U) 1+ Negative [facility] Urobilinogen Auto test strip (U) [Mass/Vol]Ordered By: Staci Ortiz on 12-01-2022 Urobilinogen (U) [Mass/Vol] Normal mg/dL Normal [facility] WBC Auto (Bld) [#/Vol]Ordere d By: Staci Ortiz on 12-01-2022 WBC (Bld) [#/Vol] 12.1 10*3/uL 3.8-11.6 [facility] pH Auto test strip (U)Ordere d By: Staci Ortiz on 12-01-2022 pH (U) 6.5 [pH] 5.0-9.0 [facility] Amphetamine Screen Ql (U)Ord ered By: TELMA Smith on 11-20-2022 Amphetamines Ql (U) Negative Negative [facility] Barbiturates [Presence] in U rine by Screen methodOrdered By: TELMA Smith on 11-20-2022 Barbiturates Screen Ql (U) Negative Negative [facility] Benzodiazepines Screen Ql (U )Ordered By: TELMA Smith on 11-20-2022 Benzodiazepines Ql (U) Negative Negative [facility] Benzoylecgonine [Presence] i n Urine by Screen methodOrdered By: TELMA Smith on 11-20-2022 Benzoylecgonine Screen Ql (U) Negative Negative [facility] Bilirubin Test strip Ql (U)O rdered By: TELMA Smith on 11-20-2022 Bilirubin Ql (U) Negative Negative [facility] Color Auto (U)Ordered By: MD DESEAN Smith on 11-20-2022 Color (U) Yellow Yellow [facility] Ketones Auto test strip (U) [Mass/Vol]Ordered By: TELMA Smith on 11-20-2022 Ketones (U) [Mass/Vol] Trace Negative [facility] Nitrite Test strip Ql (U)Ord ered By: TELMA Smith on 11-20-2022 Nitrite Ql (U) Negative Negative [facility] Opiates [Presence] in Urine by Screen methodOrdered By: TELMA Smith on 11-20-2022 Opiates Screen Ql (U) Negative Negative [facility] Phencyclidine Screen Ql (U)O rdered By: TELMA Smith on 11-20-2022 Phencyclidine Ql (U) Negative Negative [facility] Comment on above: These are unconfirme d results and should not be used for legal purposes. Drug Cut-Off Concentration: AMPH 1000 ng/mL FAVIOLA 200 ng/mL THA 200 ng/mL COCM 300 ng/mL OP 300 ng/mL PCP 25 ng/mL Protein Auto test strip (U) [Mass/Vol]Ordered By: TELMA Smith on 11-20-2022 Protein (U) [Mass/Vol] Negative Negative [facility] Specific gravity Auto test s trip (U) [Rel density]Ordered By: TELMA Smith on 11-20-2022 Specific gravity (U) [Rel density] 1.025 1.001-1.03 0 [facility] Urine clarity by refractomet ry automatedOrdered By: TELMA Smith on 11-20-2022 Clarity Refractometry automated (U) Clear Clear [facility] Urine glucose measurement by automated test strip (mass/volume)Ordered By: SHELLIE Smith on 11-20-2022 Glucose Auto test strip (U) [Mass/Vol] Normal mg/dL Normal [facility] Urine hemoglobin detection b y automated test stripOrdered By: TELMA Smith on 11-20-2022 Hemoglobin Auto test strip Ql (U) Negative Negative [facility] Urine leukocyte esterase det ection by automated test stripOrdered By: TELMA Smith on 11-20-2022 Leukocyte esterase Auto test strip Ql (U) Negative Negative [facility] Urobilinogen Auto test strip (U) [Mass/Vol]Ordered By: TELMA Smith on 11-20-2022 Urobilinogen (U) [Mass/Vol] Normal mg/dL Normal [facility] pH Auto test strip (U)Ordere d By: TELMA Smith on 11-20-2022 pH (U) 6.5 [pH] 5.0-9.0 [facility] Amphetamine Screen Ql (U)Ord ered By: MARY KAY CANTU on 11-19-2022 Amphetamines Ql (U) Negative Negative [facility] Barbiturates [Presence] in U rine by Screen methodOrdered By: MARY KAY CANTU on 11-19-2022 Barbiturates Screen Ql (U) Negative Negative [facility] Benzodiazepines Screen Ql (U )Ordered By: MARY KAY CANTU on 11-19-2022 Benzodiazepines Ql (U) Negative Negative [facility] Benzoylecgonine [Presence] i n Urine by Screen methodOrdered By: MARY KAY CANTU on 11-19-2022 Benzoylecgonine Screen Ql (U) Negative Negative [facility] Bilirubin Test strip Ql (U)O rdered By: MARY KAY CANTU on 11-19-2022 Bilirubin Ql (U) Negative Negative [facility] Color Auto (U)Ordered By: LJ CANTU on 11-19-2022 Color (U) Yellow Yellow [facility] fibronectinOrdered By: MARY KAY CANTU on 11-19-2022 Fibronectin. (Vag fld) [Mass/Vol] Positive Negative [facility] Ketones Auto test strip (U) [Mass/Vol]Ordered By: MARY KAY CANTU on 11-19-2022 Ketones (U) [Mass/Vol] Trace Negative [facility] Nitrite Test strip Ql (U)Ord ered By: MARY KAY CANTU on 11-19-2022 Nitrite Ql (U) Negative Negative [facility] Opiates [Presence] in Urine by Screen methodOrdered By: MARY KAY CANTU on 11-19-2022 Opiates Screen Ql (U) Negative Negative Fir [facility] Phencyclidine Screen Ql (U)O rdered By: MARY KAY CANTU on 11-19-2022 Phencyclidine Ql (U) Negative Negative [facility] Comment on above: These are unconfirme d results and should not be used for legal purposes. Drug Cut-Off Concentration: AMPH 1000 ng/mL FAVIOLA 200 ng/mL THA 200 ng/mL COCM 300 ng/mL OP 300 ng/mL PCP 25 ng/mL Protein Auto test strip (U) [Mass/Vol]Ordered By: MARY KAY CANTU on 11-19-2022 Protein (U) [Mass/Vol] Negative Negative [facility] Specific gravity Auto test s trip (U) [Rel density]Ordered By: MARY KAY CANTU on 11-19-2022 Specific gravity (U) [Rel density] 1.017 1.001-1.03 0 [facility] Urine clarity by refractomet ry automatedOrdered By: MARY KAY CANTU on 11-19-2022 Clarity Refractometry automated (U) Clear Clear [facility] Urine glucose measurement by automated test strip (mass/volume)Ordered By: MARY KAY CANTU on 11-19-2022 Glucose Auto test strip (U) [Mass/Vol] Normal mg/dL Normal [facility] Urine hemoglobin detection b y automated test stripOrdered By: MARY KAY CANTU on 11-19-2022 Hemoglobin Auto test strip Ql (U) Negative Negative [facility] Urine leukocyte esterase det ection by automated test stripOrdered By: MARY KAY CANTU on 11-19-2022 Leukocyte esterase Auto test strip Ql (U) Negative Negative [facility] Urobilinogen Auto test strip (U) [Mass/Vol]Ordered By: MARY KAY CANTU on 11-19-2022 Urobilinogen (U) [Mass/Vol] Normal mg/dL Normal [facility] pH Auto test strip (U)Ordere d By: MARY KAY CANTU on 11-19-2022 pH (U) 7.5 [pH] 5.0-9.0 [facility] US PREG TVon 07-14-2022 US PREG TV US PELVIS: OB LESS T REYNOLDS 14 WEEKS HISTORY: 22-year-old female G 6 P 5 female presents for US evaluation. TECHNIQUE: Multiple sonographic images are performed of the pelvis using grayscale and color Doppler with transvaginal probes. COMPARISON: None. FINDINGS: Uterus: Uterus is anteflexed. Cervix: Normal. 4.3 cm. Cervix is closed. Calcifications are seen within the cervix. Gestational Sac: Present in endometrium. 0.43 cm, out of range Yolk Sac: Not Visualized. Pole: Not visualized. Subchorionic Bleed: None. Maternal: Ovaries: Right ovary: Measures 2.1 x 1.5 x 1.9 cm. Color Doppler demonstrated Left ovary: Measures 3.4 x 1.8 x 2.4 cm. Color Doppler is demonstrated Free fluid: None. IMPRESSION: 1. Small cystic in the endometrium, may represent a gestational sac within the endometrium which is too small to characterize. 2. Hypoechoic area in the left ovary may represent a corpus luteal cyst. 3. Please correlate with patient's beta hCG and if clinically indicated follow-up ultrasound after 48 hours. Electronically authenticated by: PETRA SALCIDO Date: 2022-07-14 00:[address] [facility] AMYLASEon 07-13-2022 Amylase [Catalytic activity/Vol] 43 U/L Normal 25-[address] [facility] Comment on above: Performed By: #### C BC #### [facility] [address] [address] [address] Moris Winter CBC AUTO DIFFon 07-13-2022 BASO # 0.0 103/ul Normal 0.0-0.1 [facility] Comment on above: Performed By: #### C BC #### [facility] [address] [address] [address] Moris Winter Basophils/100 WBC (Bld) 0.2 % Normal 0.2-2.0 [facility] Comment on above: Performed By: #### C BC #### [facility] [address] [place] [address] Dr. Moris Winter EO # 0.1 103/ul Normal 0.0-0.7 [facility] Comment on above: Performed By: #### C BC #### [facility] [address] [place] [address] Dr. Moris Winter Eosinophils/100 WBC (Bld) 1.2 % Normal 0.9-7.0 [facility] Comment on above: Performed By: #### C BC #### [facility] [address] [place] [address] Dr. Moris Winter Erythrocyte distribution width (RBC) [Ratio] 13.8 % Normal 11.0-15.0 [facility] Comment on above: Performed By: #### C BC #### [facility] [address] [place] [address] Dr. Moris Winter Hematocrit (Bld) [Volume fraction] 36.6 % Normal 36.0-48.0 [facility] Comment on above: Performed By: #### C BC #### [facility] [address] [place] [address] Dr. Moris Winter Hemoglobin (Bld) [Mass/Vol] 12.3 g/dL Normal 12.0-16.0 [facility] Comment on above: Performed By: #### C BC #### [facility] [address] [place] [address] Dr. Moris Winter IG # 0.03 10e3/ul Normal 0.00-0.03 [facility] Comment on above: Performed By: #### C BC #### [facility] [address] [place] [address] Dr. Moris Winter IG % 0.3 % Normal 0.0-0.5 [facility] Comment on above: Performed By: #### C BC #### [facility] [address] [place] [address] Dr. Moris Winter LYMPH # 2.1 103/ul Normal 1.2-3.8 [facility] Comment on above: Performed By: #### C BC #### [facility] [address] [place] [address] Dr. Moris Winter Lymphocytes/100 WBC (Bld) 24.3 % Normal 20.5-60.0 [facility] Comment on above: Performed By: #### C BC #### [facility] [address] [place] [address] Dr. Moris Witner MANUAL DIFF REQ NO Normal [facility] Comment on above: Performed By: #### C BC #### [facility] [address] [place] [address] Dr. Moris Winter MCH (RBC) [Entitic mass] 27.5 pg Normal 26.7-34.0 [facility] Comment on above: Performed By: #### C BC #### [facility] [address] [place] [address] Dr. Moris Winter MCHC (RBC) [Mass/Vol] 33.6 g/dL Normal 29.9-35.2 [facility] Comment on above: Performed By: #### C BC #### [facility] [address] [place] [address] Dr. Moris Winter MCV (RBC) [Entitic vol] 81.7 fL Normal 81.0-99.0 [facility] Comment on above: Performed By: #### C BC #### [facility] [address] [place] [address] Dr. Moris Winter MONO # 0.7 103/ul Normal 0.3-0.8 [facility] Comment on above: Performed By: #### C BC #### [facility] [address] [place] [address] Dr. Moris Winter Monocytes/100 WBC (Bld) 7.8 % Normal 1.7-12.0 [facility] Comment on above: Performed By: #### C BC #### [facility] [address] [place] [address] Dr. Moris Winter NEUT # 5.8 103/ul Normal 1.4-6.5 [facility] Comment on above: Performed By: #### C BC #### [facility] [address] [place] [address] Dr. Moris Winter Neutrophils/100 WBC (Bld) 66.2 % Normal 43.0-75.0 [facility] Comment on above: Performed By: #### C BC #### [facility] [address] [place] [address] Dr. Moris Winter Platelet mean volume (Bld) [Entitic vol] 10.2 fL Normal 9.5-13.5 [facility] Comment on above: Performed By: #### C BC #### [facility] [address] [place] [address] Dr. Moris Winter PLT 301 103/ul Normal 150-[address] [facility] Comment on above: Performed By: #### C BC #### [facility] [address] [place] [address] Dr. Moris Winter RBC 4.48 106/ul Normal 4.20-5.[address] [facility] Comment on above: Performed By: #### C BC #### [facility] [address] [place] [address] Dr. Moris Winter WBC 8.7 103/ul Normal 4.0-11.[address] [facility] Comment on above: Performed By: #### C BC #### [facility] [address] [place] [address] Dr. Moris Winter ER URINE PROFILEon 3 Bilirubin Ql (U) Negative Normal NEGATIVE [facility] Comment on above: Performed By: #### P REGU #### [facility] [address] [place] [address] Dr. Moris Winter Clarity (U) CLEAR Normal CLEAR [facility] Comment on above: Performed By: #### P REGU #### [facility] [address] [place] [address] Dr. Moris Winter Color (U) LT. YELLOW Normal YELLOW [facility] Comment on above: Performed By: #### P REGU #### [facility] [address] [place] [address] Dr. Moris iWnter ERUAHD A micrscopic examina tion will be performed if indicated. Normal [facility] Comment on above: Performed By: #### P REGU #### [facility] [address] [place] [address] Dr. Moris Winter Glucose Ql (U) Negative Normal NEGATIVE [facility] Comment on above: Performed By: #### P REGU #### [facility] [address] [place] [address] Dr. Moris Winter Hemoglobin Ql (U) Negative Normal NEGATIVE [facility] Comment on above: Performed By: #### P REGU #### [facility] [address] [place] [address] Dr. Moris Winter Ketones Ql (U) TRACE Abnormal NEGATIVE [facility] Comment on above: Performed By: #### P REGU #### [facility] [address] [place] [address] Dr. Moris Winter LEUKOCYTES TRACE Abnormal NEGATIVE [facility] Comment on above: Performed By: #### P REGU #### [facility] [address] [place] [address] Dr. Moris Winter Nitrite Ql (U) Negative Normal NEGATIVE [facility] Comment on above: Performed By: #### P REGU #### [facility] [address] [place] [address] Dr. Moris Winter pH (U) 7.0 [pH] Normal 5-[address] [facility] Comment on above: Performed By: #### P REGU #### [facility] [address] [place] [address] Dr. Moris Winter SPEC GRAVITY 1.020 Normal 1.005-<=1. 025 [facility] Comment on above: Performed By: #### P REGU #### [facility] [address] [place] [address] Dr. Moris Winter UA PROTEIN Negative Normal NEGATIVE/ TRACE [facility] Comment on above: Performed By: #### P REGU #### [facility] [address] [place] [address] Dr. Moris Winter UR MICRO IND INDICATED Normal [facility] Comment on above: Performed By: #### P REGU #### [facility] [address] [place] [address] Dr. Moris Winter Urobilinogen Qn (U) 0.2 {Marcin'U}/dL Normal 0.2 - 1. 0 [facility] Comment on above: Performed By: #### P REGU #### [facility] [address] [place] [address] Dr. Moris Winter LIPASEon 07-13-2022 Lipase [Catalytic activity/Vol] 204.0 U/L Normal 73.0-393.0 [facility] Comment on above: Performed By: #### C BC #### [facility] [address] [place] [address] Dr. Moris Winter PREG QUANT HCGon 07-13-2022 HCG QUANT 1455 mIU/mL Normal [facility] Comment on above: Performed By: #### P REGU #### [facility] [address] [place] [address] Dr. Moris Winter HCG RANGE SEE BELOW Normal [facility] Comment on above: Result Comment: 5-50 0.2-1 WEEK 50-500 1-2 WEEKS 100-5,000 2-3 WEEKS 500-10,000 3-4 WEEKS 1,000-50,000 4-5 WEEKS 10,000-100,000 5-6 WEEKS 15,000-200,000 6-8 WEEKS 10,000-100,000 2-3 MONTHS Performed By: #### P REGU #### [facility] [address] [place] [address] Dr. Moris Winter URon 07-13-2022 , QUAL Positive Abnormal NEGATIVE [facility] Comment on above: Performed By: #### P REGU #### [facility] [address] [place] [address] Dr. Moris Winter PROF 14(COMP METB)on 023 Albumin [Mass/Vol] 3.3 g/dL Critically low 3.4-5.0 [facility] Comment on above: Performed By: #### C BC #### [facility] [address] [place] [address] Dr. Moris Winter Albumin/Globulin [Mass ratio] 0.7 {ratio} Normal [facility] Comment on above: Performed By: #### C BC #### [facility] [address] [place] [address] Dr. Moris Winter ALP [Catalytic activity/Vol] 86 U/L Normal 46-116 [facility] Comment on above: Performed By: #### C BC #### [facility] [address] [place] [address] Dr. Moris Winter ALT [Catalytic activity/Vol] 16 U/L Normal 14-59 [facility] Comment on above: Performed By: #### C BC #### [facility] [address] [place] [address] Dr. Moris Winter Anion gap [Moles/Vol] 14.9 mmol/L Normal [facility] Comment on above: Performed By: #### C BC #### [facility] [address] [place] [address] Dr. Moris Winter AST [Catalytic activity/Vol] 12 U/L Critically low 15-37 [facility] Comment on above: Performed By: #### C BC #### [facility] [address] [place] [address] Dr. Moris Winter Bilirubin [Mass/Vol] 0.1 mg/dL Critically low 0.2-1.0 [facility] Comment on above: Performed By: #### C BC #### [facility] [address] [place] [address] Dr. Moris Winter Calcium [Mass/Vol] 9.3 mg/dL Normal 8.5-10.1 [facility] Comment on above: Performed By: #### C BC #### [facility] [address] [place] [address] Dr. Moris Winter Chloride [Moles/Vol] 103 mmol/L Normal 98-107 [facility] Comment on above: Performed By: #### C BC #### [facility] [address] [address] [address] Moris Winter CO2 [Moles/Vol] 25.4 mmol/L Normal 21.0-32.0 [facility] Comment on above: Performed By: #### C BC #### [facility] [address] [place] [address] Dr. Moris Winter Creatinine [Mass/Vol] 0.80 mg/dL Normal 0.55-1.02 [facility] Comment on above: Performed By: #### C BC #### [facility] [address] [place] [address] Dr. Moris Winter EGFR-AF TRISTANIAN >60 Normal >=60 [facility] Comment on above: Performed By: #### C BC #### [facility] [address] [place] [address] Dr. Moris Winter EGFR-NON AF TRISTANIAN >60 Normal >=60 [facility] Comment on above: Performed By: #### C BC #### [facility] [address] [place] [address] Dr. Moris Winter Globulin (S) [Mass/Vol] 4.6 g/dL Normal [facility] Comment on above: Performed By: #### C BC #### [facility] [address] [place] [address] Dr. Moris Winter Glucose [Mass/Vol] 111 mg/dL Critically high 74-106 [facility] Comment on above: Performed By: #### C BC #### [facility] [address] [place] [address] Dr. Moris Winter Potassium [Moles/Vol] 3.3 mmol/L Critically low 3.5-5.1 [facility] Comment on above: Performed By: #### C BC #### [facility] [address] [address] [address] Moris Winter Protein [Mass/Vol] 7.9 g/dL Normal 6.4-8.[address] [facility] Comment on above: Performed By: #### C BC #### [facility] [address] [address] [address] Moris Winter Sodium [Moles/Vol] 140 mmol/L Normal 136-[address] [facility] Comment on above: Performed By: #### C BC #### [facility] [address] [place] [address] Dr. Moris Winter Urea nitrogen [Mass/Vol] 10.0 mg/dL Normal 7.0-18.0 [facility] Comment on above: Performed By: #### C BC #### [facility] [address] [place] [address] Dr. Moris Winter Urea nitrogen/Creatinine [Mass ratio] 12.5 mg/mg Normal [facility] Comment on above: Performed By: #### C BC #### [facility] [address] [place] [address] Dr. Moris Winter URINE MICROSCOPIC ONLYon BACTERIA TRACE Abnormal NONE SEEN [facility] Comment on above: Performed By: #### P REGU #### [facility] [address] [place] [address] Dr. Moris Winter Bacteria identified Cx Nom (U) NOT INDICATED Normal [facility] Comment on above: Performed By: #### P REGU #### [facility] [address] [place] [address] Dr. Moris Winter CAST NONE SEEN Normal NONE SEEN [facility] Comment on above: Performed By: #### P REGU #### [facility] [address] [place] [address] Dr. Moris Winter Crystals LM Nom (Urine sed) NONE SEEN Normal NONE SEEN [facility] Comment on above: Performed By: #### P REGU #### [facility] [address] [place] [address] Dr. Moris Winter Epithelial cells LM Ql (Urine sed) FEW Abnormal NONE SEEN /RARE [facility] Comment on above: Performed By: #### P REGU #### [facility] [address] [address] [address] Moris Winter MUCOUS NONE SEEN Normal NONE SEEN [facility] Comment on above: Performed By: #### P REGU #### [facility] [address] [address] [address] Moris Winter RBC 0-2 Normal 0-2 [facility] Comment on above: Performed By: #### P REGU #### [facility] [address] [address] [address] Moris Winter WBC 2-5 Abnormal NONE SEEN [facility] Comment on above: Performed By: #### P REGU #### [facility] [address] [address] [address] Moris Winter Cholesterol [Mass/volume] in Serum or PlasmaOrdered By: Nataly Toure on 06-16-2022 Cholesterol [Mass/Vol] 189 mg/dL 140-200 [facility] Comment on above: Chol less than 200 m g/dl low riskChol 201-239 mg/dl borderline riskChol 240 mg/dl and greater high risk Cholesterol in LDL Calc [Mas s/Vol]Ordered By: Nataly Toure on 06-16-2022 Cholesterol in LDL [Mass/Vol] 84 mg/dL 0-100 [facility] Comment on above: LDL ATP III CLASSIFI CATIONLDL less than 100 mg/dL OptimalLDL 100-129 mg/dL Near or above optimalLDL 130-159 mg/dL Borderline highLDL 160-189 mg/dL HighLDL greater than 189 mg/dL Very high Cholesterol in VLDL Calc [Ma ss/Vol]Ordered By: Nataly Touer on 06-16-2022 Cholesterol in VLDL [Mass/Vol] 54 mg/dL [facility] Serum or plasma high density lipoprotein (HDL) cholesterol measurementOrdered By: Nataly Toure on 06-16-2022 Cholesterol in HDL [Mass/Vol] 50 mg/dL 35-85 [facility] Comment on above: HDL CHOL ATP-III CLA SSIFICATION Cardiovascular RiskHDL > or equal to 60 mg/dL LOWHDL < 40 mg/dL HIGH Serum or plasma total choles terol/high density lipoprotein (HDL) cholesterol mass ratOrdered By: Nataly Toure on 06-16-2022 Cholesterol.total/Chol esterol in HDL [Mass ratio] 3.8 {ratio} <5.0 [facility] Triglyceride [Mass/volume] i n Serum or PlasmaOrdered By: Nataly Toure on 06-16-2022 Triglyceride [Mass/Vol] 273 mg/dL 0-149 [facility] Comment on above: TRIG ATP III CLASSIF ICATIONTRIG less than 150 mg/dL NormalTRIG 150-199 mg/dL Borderline highTRIG 200-500 mg/dL High TRIG greater than 500 mg/dL Very highStandard traceable to the Center for Disease Conrtrol and Prevention (CDC) test method. Alanine aminotransferase [En zymatic activity/volume] in Serum or PlasmaOrdered By: Nataly Toure on 06-04-2022 ALT [Catalytic activity/Vol] 7 U/L 7-52 [facility] Albumin [Mass/volume] in Ser um or Plasma by Bromocresol green (BCG) dye binding methoOrdered By: Nataly Toure on 06-04-2022 Albumin BCG dye [Mass/Vol] 3.8 g/dL 3.5-5.7 [facility] Alkaline phosphatase [Enzyma tic activity/volume] in Serum or PlasmaOrdered By: Nataly Toure on 06-04-2022 ALP [Catalytic activity/Vol] 78 U/L 34-104 [facility] Amylase [Enzymatic activity/ volume] in Serum or PlasmaOrdered By: Nataly Toure on 06-04-2022 Amylase [Catalytic activity/Vol] 29 U/L 29-103 [facility] Aspartate aminotransferase [ Enzymatic activity/volume] in Serum or PlasmaOrdered By: Nataly Toure on 06-04-2022 AST [Catalytic activity/Vol] 10 U/L 13-39 [facility] Basophils Auto (Bld) [#/Vol] Ordered By: Nataly Toure on 06-04-2022 Basophils (Bld) [#/Vol] 0.1 10*3/uL 0.0-0.2 [facility] Basophils/100 WBC Auto (Bld) Ordered By: Nataly Toure on 06-04-2022 Basophils/100 WBC (Bld) 1.4 % . [facility] Bilirubin.total [Mass/volume ] in Serum or PlasmaOrdered By: Nataly Toure on 06-04-2022 Bilirubin [Mass/Vol] 0.3 mg/dL 0.3-1.0 [facility] Calcium [Mass/volume] in Ser um or PlasmaOrdered By: Nataly Toure on 06-04-2022 Calcium [Mass/Vol] 9.3 mg/dL 8.6-10.3 [facility] Carbon dioxide, total [Moles /volume] in Serum or PlasmaOrdered By: Nataly Toure on 06-04-2022 CO2 [Moles/Vol] 29.6 mmol/L 21.0-31.0 [facility] Chloride [Moles/volume] in S rosa or PlasmaOrdered By: Nataly Toure on 06-04-2022 Chloride [Moles/Vol] 99 mmol/L 98-107 [facility] Creatinine [Mass/volume] in Serum or PlasmaOrdered By: Nataly Toure on 06-04-2022 Creatinine [Mass/Vol] 0.69 mg/dL 0.60-1.20 [facility] Eosinophils Auto (Bld) [#/Vo l]Ordered By: Nataly Toure on 06-04-2022 Eosinophils (Bld) [#/Vol] 0.2 10*3/uL 0.0-0.45 [facility] Eosinophils/100 WBC Auto (Bl d)Ordered By: Nataly Toure on 06-04-2022 Eosinophils/100 WBC (Bld) 1.8 % . [facility] Erythrocyte distribution wid th Auto (RBC) [Ratio]Ordered By: Nataly Toure on 06-04-2022 Erythrocyte distribution width (RBC) [Ratio] 14.6 % 11.9-15.3 [facility] Ferritin [Mass/volume] in Se rum or PlasmaOrdered By: Nataly Toure on 06-04-2022 Ferritin [Mass/Vol] 12.7 ng/mL 11.0-306.8 [facility] Globulin Calc (S) [Mass/Vol] Ordered By: Nataly Toure on 06-04-2022 Globulin (S) [Mass/Vol] 3.6 g/dL [facility] Glucose [Mass/volume] in Ser um or PlasmaOrdered By: Nataly Toure on 06-04-2022 Glucose [Mass/Vol] 103 mg/dL 70-100 [facility] Comment on above: ADA recommended refe rence rangeRandom Glucose Reference Range is dependent on time and content of last meal. Glucose of more than 200 mg/dL in a nonstressed, ambulatory subject supports the diagnosis of Diabetes Mellitus. Hematocrit Auto (Bld) [Volum e fraction]Ordered By: Nataly Toure on 06-04-2022 Hematocrit (Bld) [Volume fraction] 38.2 % 34.0-46.4 [facility] Hemoglobin [Mass/volume] in BloodOrdered By: Nataly Toure on 06-04-2022 Hemoglobin (Bld) [Mass/Vol] 12.7 g/dL 11.8-15.4 [facility] Leukocytes [#/volume] correc kee for nucleated erythrocytes in Blood by Automated counOrdered By: Nataly Toure on 06-04-2022 WBC corrected for nucl RBC Auto (Bld) [#/Vol] 8.7 10*3/uL 3.8-11.6 [facility] Lipase [Enzymatic activity/v olume] in Serum or PlasmaOrdered By: Nataly Toure on 06-04-2022 Lipase [Catalytic activity/Vol] 38.0 U/L 11.0-82.0 [facility] Lymphocytes Auto (Bld) [#/Vo l]Ordered By: Nataly Toure on 06-04-2022 Lymphocytes (Bld) [#/Vol] 1.7 10*3/uL 1.00-4.8 [facility] Lymphocytes/100 WBC Auto (Bl d)Ordered By: Nataly Toure on 06-04-2022 Lymphocytes/100 WBC (Bld) 19.7 % . [facility] MCH Auto (RBC) [Entitic mass ]Ordered By: Nataly Toure on 06-04-2022 MCH (RBC) [Entitic mass] 26.8 pg 24.7-34.3 [facility] MCHC Auto (RBC) [Mass/Vol]Or dered By: Nataly Toure on 06-04-2022 MCHC (RBC) [Mass/Vol] 33.2 g/dL 32.0-35.0 [facility] MCV Auto (RBC) [Entitic vol] Ordered By: Nataly Toure on 06-04-2022 MCV (RBC) [Entitic vol] 80.7 fL 80-100 [facility] Monocytes Auto (Bld) [#/Vol] Ordered By: Nataly Toure on 06-04-2022 Monocytes (Bld) [#/Vol] 0.5 10*3/uL 0.0-0.8 [facility] Monocytes/100 WBC Auto (Bld) Ordered By: Nataly Toure on 06-04-2022 Monocytes/100 WBC (Bld) 6.1 % . [facility] Neutrophils Auto (Bld) [#/Vo l]Ordered By: Nataly Toure on 06-04-2022 Neutrophils (Bld) [#/Vol] 6.2 10*3/uL 1.8-7.7 [facility] Neutrophils/100 WBC Auto (Bl d)Ordered By: Nataly Toure on 06-04-2022 Neutrophils/100 WBC (Bld) 71.0 % . [facility] No Panel InformationOrdered By: Nataly Toure on 06-04-2022 Estimated GFR (CKD-EPI) > 60.0 mL/Min [facility] Creatinine Clearance (Chem N/A [facility] Nucleated erythrocytes [Pres ence] in Blood by Automated countOrdered By: Nataly Toure on 06-04-2022 Nucleated RBC Auto Ql (Bld) 0.2 /100{WBC} 0-0.5 [facility] Platelet mean volume Auto (B ld) [Entitic vol]Ordered By: Nataly Toure on 06-04-2022 Platelet mean volume (Bld) [Entitic vol] 10.2 fL 6.3-10.7 [facility] Platelets Auto (Bld) [#/Vol] Ordered By: Nataly Toure on 06-04-2022 Platelets (Bld) [#/Vol] 245 10*3/uL 150-450 [facility] Potassium [Moles/volume] in Serum or PlasmaOrdered By: Nataly Toure on 06-04-2022 Potassium [Moles/Vol] 4.5 mmol/L 3.5-5.1 [facility] Protein [Mass/volume] in Ser um or PlasmaOrdered By: Nataly Toure on 06-04-2022 Protein [Mass/Vol] 7.4 g/dL 6.4-8.9 [facility] RBC Auto (Bld) [#/Vol]Ordere d By: Nataly Toure on 06-04-2022 RBC (Bld) [#/Vol] 4.73 10*6/uL 3.60-5.00 [facility] Serum or plasma albumin/glob ulin mass ratioOrdered By: Nataly Toure on 06-04-2022 Albumin/Globulin [Mass ratio] 1.1 {ratio} [facility] Serum or plasma anion gap de terminationOrdered By: Nataly Toure on 06-04-2022 Anion gap [Moles/Vol] 10.9 mmol/L 6.0-15.0 [facility] Serum or plasma insulin nikita urement (units/volume)Ordered By: Nataly Toure on 06-04-2022 Insulin Qn 128.0 u[iU]/mL 2.6-24.9 [facility] Comment on above: Performed at: [address] [id number] Director: Sam Lopez PhD, Phone: [phone] Sodium [Moles/volume] in Ser um or PlasmaOrdered By: Nataly Toure on 06-04-2022 Sodium [Moles/Vol] 135 mmol/L 136-145 [facility] Urea nitrogen [Mass/volume] in Serum or PlasmaOrdered By: Nataly Toure on 06-04-2022 Urea nitrogen [Mass/Vol] 9 mg/dL 7-25 [facility] WBC Auto (Bld) [#/Vol]Ordere d By: Nataly Toure on 06-04-2022 WBC (Bld) [#/Vol] 8.7 10*3/uL 3.8-11.6 [facility] AMYLASEon 06-03-2022 Amylase [Catalytic activity/Vol] 37 U/L Normal 25-[address] [facility] Comment on above: Performed By: #### L IPA, CMP, JUVE #### [facility] [address] [address] [address] Moris Winter CBC AUTO DIFFon 06-03-2022 BASO # 0.0 103/ul Normal 0.0-0.1 [facility] Comment on above: Performed By: #### C BC #### [facility] [address] [address] [address] Moris Winter Basophils/100 WBC (Bld) 0.1 % Critically low 0.2-2.0 [facility] Comment on above: Performed By: #### C BC #### [facility] [address] [place] [address] Dr. Moris Winter EO # 0.1 103/ul Normal 0.0-0.7 [facility] Comment on above: Performed By: #### C BC #### [facility] [address] [address] [address] Moris Winter Eosinophils/100 WBC (Bld) 1.6 % Normal 0.9-7.0 [facility] Comment on above: Performed By: #### C BC #### [facility] [address] [address] [address] Moris Winter Erythrocyte distribution width (RBC) [Ratio] 13.5 % Normal 11.0-15.0 [facility] Comment on above: Performed By: #### C BC #### [facility] [address] [place] [address] Dr. Moris Winter Hematocrit (Bld) [Volume fraction] 36.3 % Normal 36.0-48.0 [facility] Comment on above: Performed By: #### C BC #### [facility] [address] [place] [address] Dr. Moris Winter Hemoglobin (Bld) [Mass/Vol] 11.8 g/dL Critically low 12.0-16.0 [facility] Comment on above: Performed By: #### C BC #### [facility] [address] [place] [address] Dr. Moris Winter IG # 0.03 10e3/ul Normal 0.00-0.03 [facility] Comment on above: Performed By: #### C BC #### [facility] [address] [place] [address] Dr. Moris Winter IG % 0.4 % Normal 0.0-0.5 [facility] Comment on above: Performed By: #### C BC #### [facility] [address] [place] [address] Dr. Moris Winter LYMPH # 2.5 103/ul Normal 1.2-3.8 [facility] Comment on above: Performed By: #### C BC #### [facility] [address] [place] [address] Dr. Moris Winter Lymphocytes/100 WBC (Bld) 33.2 % Normal 20.5-60.0 [facility] Comment on above: Performed By: #### C BC #### [facility] [address] [place] [address] Dr. Moris Winter MANUAL DIFF REQ NO Normal [facility] Comment on above: Performed By: #### C BC #### [facility] [address] [place] [address] Dr. Moris Winter MCH (RBC) [Entitic mass] 26.2 pg Critically low 26.7-34.0 [facility] Comment on above: Performed By: #### C BC #### [facility] [address] [place] [address] Dr. Moris Winter MCHC (RBC) [Mass/Vol] 32.5 g/dL Normal 29.9-35.2 [facility] Comment on above: Performed By: #### C BC #### [facility] [address] [place] [address] Dr. Moris Winter MCV (RBC) [Entitic vol] 80.7 fL Critically low 81.0-99.0 [facility] Comment on above: Performed By: #### C BC #### [facility] [address] [place] [address] Dr. Moris Winter MONO # 0.7 103/ul Normal 0.3-0.8 [facility] Comment on above: Performed By: #### C BC #### [facility] [address] [place] [address] Dr. Moris Winter Monocytes/100 WBC (Bld) 9.9 % Normal 1.7-12.0 [facility] Comment on above: Performed By: #### C BC #### [facility] [address] [place] [address] Dr. Moris Winter NEUT # 4.1 103/ul Normal 1.4-6.5 [facility] Comment on above: Performed By: #### C BC #### [facility] [address] [place] [address] Dr. Moris Winter Neutrophils/100 WBC (Bld) 54.8 % Normal 43.0-75.0 [facility] Comment on above: Performed By: #### C BC #### [facility] [address] [place] [address] Dr. Moris Winter Platelet mean volume (Bld) [Entitic vol] 10.7 fL Normal 9.5-13.5 [facility] Comment on above: Performed By: #### C BC #### [facility] [address] [place] [address] Dr. Moris Winter PLT 248 103/ul Normal 150-[address] [facility] Comment on above: Performed By: #### C BC #### [facility] [address] [place] [address] Dr. Moris Winter RBC 4.50 106/ul Normal 4.20-5.[address] [facility] Comment on above: Performed By: #### C BC #### [facility] [address] [place] [address] Dr. Moris Winter WBC 7.5 103/ul Normal 4.0-11.[address] [facility] Comment on above: Performed By: #### C BC #### [facility] [address] [address] [address] ABD/PELV W CONon 06-04-[address] ABD/PELV W CON EXAM: CT ABD/PELV W CON REASON FOR EXAM: Female, 22 years, GENERALIZED ABDOMINAL PAIN. TECHNIQUE: Computed tomography of the abdomen and pelvis is performed in the axial projection from the lung bases to the pubic symphysis. Sagittal and coronal reconstructed images are performed. Dose reduction techniques were achieved by using automated exposure control and/or adjustment of mA and/or KVP according to patient size and/or use of iterative reconstruction technique. A total of 100 mL Omnipaque 300 IV contrast was given. Study was performed without oral contrast. COMPARISON: None. FINDINGS: Lung bases: The lung bases are clear. There is no pleural effusion. The visualized portions of the heart are unremarkable. Liver: The liver is normal. Gallbladder: The gallbladder is contracted. Spleen: The spleen is normal. Pancreas: The pancreas is normal. Adrenal glands: The adrenal glands are normal bilaterally. Right kidney: The kidney is normal in size. There is no renal calculus or hydronephrosis. Left kidney: The kidney is normal in size. There is no renal calculus or hydronephrosis. Stomach: The stomach is normal. Small bowel: The small bowel is normal. Large bowel: The colon is normal. Appendix: The appendix is visualized, and is normal. Aorta: The aorta is normal. IVC: The IVC is normal. Retroperitoneum: There are nonspecific shotty retroperitoneal lymph nodes. Bladder: The bladder is normal. Pelvic organs: Normal uterus. Abdominal wall: There is a small fat-containing umbilical hernia. Osseous structures: There is disc space narrowing at L5-S1. IMPRESSION: No bowel obstruction or acute renal pathology. Normal appendix. Nonspecific small retroperitoneal lymph nodes are seen. Electronically authenticated by: NANCI COULTER Date: 2022-06-03 02:[address] [facility] ER URINE PROFILEon 3 Bilirubin Ql (U) Negative Normal NEGATIVE [facility] Comment on above: Performed By: #### C BC #### [facility] [address] [place], [place] [address] Dr. Moris Winter Clarity (U) CLEAR Normal CLEAR [facility] Comment on above: Performed By: #### C BC #### [facility] [address] [place] [address] Dr. Moris Winter Color (U) LT. YELLOW Normal YELLOW [facility] Comment on above: Performed By: #### C BC #### [facility] [address] [place] [address] Dr. Moris PROCTOR A micrscopic examina tion will be performed if indicated. Normal [facility] Comment on above: Performed By: #### C BC #### [facility] [address] [place] [address] Dr. Moris Winter Glucose Ql (U) Negative Normal NEGATIVE [facility] Comment on above: Performed By: #### C BC #### [facility] [address] [place] [address] Dr. Moris Winter Hemoglobin Ql (U) Negative Normal NEGATIVE [facility] Comment on above: Performed By: #### C BC #### [facility] [address] [place] [address] Dr. Moris Winter Ketones Ql (U) Negative Normal NEGATIVE [facility] Comment on above: Performed By: #### C BC #### [facility] [address] [place] [address] Dr. Moris Winter LEUKOCYTES Negative Normal NEGATIVE [facility] Comment on above: Performed By: #### C BC #### [facility] [address] [place] [address] Dr. Moris Winter Nitrite Ql (U) Negative Normal NEGATIVE [facility] Comment on above: Performed By: #### C BC #### [facility] [address] [place] [address] Dr. Moris Winter pH (U) 7.0 [pH] Normal 5-[address] [facility] Comment on above: Performed By: #### C BC #### [facility] [address] [place] [address] Dr. Moris Winter SPEC GRAVITY 1.015 Normal 1.005-<=1. 025 [facility] Comment on above: Performed By: #### C BC #### [facility] [address] [place] [address] Dr. Moris Winter UA PROTEIN Negative Normal NEGATIVE/ TRACE [facility] Comment on above: Performed By: #### C BC #### [facility] [address] [place] [address] Dr. Moris Winter UR MICRO IND NOT INDICATED Normal [facility] Comment on above: Performed By: #### C BC #### [facility] [address] [place] [address] Dr. Moris Winter Urobilinogen Qn (U) 1.0 {Marcin'U}/dL Normal 0.2 - 1. 0 [facility] Comment on above: Performed By: #### C BC #### [facility] [address] [place] [address] Dr. Moris Winter LACTATE/LACTIC ACIDon 2022 Lactate [Moles/Vol] 1.0 mmol/L Normal 0.4-2.0 [facility] Comment on above: Performed By: #### L ACT #### [facility] [address] [place] [address] Dr. Moris Winter LIPASEon 06-03-2022 Lipase [Catalytic activity/Vol] 112.0 U/L Normal 73.0-393.0 [facility] Comment on above: Performed By: #### L IPA, CMP, JUVE #### [facility] [address] [place] [address] Dr. Moris Winter URon 06-03-2022 , QUAL Negative Normal NEGATIVE [facility] Comment on above: Performed By: #### P REGU #### [facility] [address] [place] [address] Dr. Moris Wintre PROF 14(COMP METB)on 023 Albumin [Mass/Vol] 2.9 g/dL Critically low 3.4-5.0 [facility] Comment on above: Performed By: #### L IPA CMP, JUVE #### [facility] [address] [place] [address] Dr. Moris Winter Albumin/Globulin [Mass ratio] 0.6 {ratio} Normal [facility] Comment on above: Performed By: #### L IPA, CMP, JUVE #### [facility] [address] [address] [address] Moris Winter ALP [Catalytic activity/Vol] 86 U/L Normal 46-[address] [facility] Comment on above: Performed By: #### L IPA, CMP, JUVE #### [facility] [address] [address] [address] Moris Winter ALT [Catalytic activity/Vol] 14 U/L Normal 14-[address] [facility] Comment on above: Performed By: #### L IPA, CMP, JUVE #### [facility] [address] [address] [address] Moris Winter Anion gap [Moles/Vol] 10.9 mmol/L Normal [facility] Comment on above: Performed By: #### L IPA, CMP, JUVE #### [facility] [address] [address] [address] Moris Winter AST [Catalytic activity/Vol] 12 U/L Critically low 15-37 [facility] Comment on above: Performed By: #### L IPA, CMP, JUVE #### [facility] [address] [address] [address] Moris Winter Bilirubin [Mass/Vol] 0.2 mg/dL Normal 0.2-1.0 [facility] Comment on above: Performed By: #### L IPA, CMP, JUVE #### [facility] [address] [address] [address] Moris Winter Calcium [Mass/Vol] 9.0 mg/dL Normal 8.5-10.1 [facility] Comment on above: Performed By: #### L IPA, CMP, JUVE #### [facility] [address] [address] [address] Moris Winter Chloride [Moles/Vol] 102 mmol/L Normal 98-[address] [facility] Comment on above: Performed By: #### L IPA, CMP, JUVE #### [facility] [address] [address] [address] Moris Winter CO2 [Moles/Vol] 29.6 mmol/L Normal 21.0-32.[address] [facility] Comment on above: Performed By: #### L IPA, CMP, JUVE #### [facility] [address] [address] [address] Moris Winter Creatinine [Mass/Vol] 0.73 mg/dL Normal 0.55-1.02 [facility] Comment on above: Performed By: #### L IPA, CMP, JUVE #### [facility] [address] [address] [address] Moris Winter EGFR-AF TRISTANIAN >60 Normal >=60 [facility] Comment on above: Performed By: #### L IPA, CMP, JUVE #### [facility] [address] [address] [address] Moris Winter EGFR-NON AF TRISTANIAN >60 Normal >=60 [facility] Comment on above: Performed By: #### L IPA, CMP, JUVE #### [facility] [address] [address] [address] Moris Winter Globulin (S) [Mass/Vol] 4.8 g/dL Normal [facility] Comment on above: Performed By: #### L IPA, CMP, JUVE #### [facility] [address] [address] [address] Moris Winter Glucose [Mass/Vol] 121 mg/dL Critically high 74-106 [facility] Comment on above: Performed By: #### L IPA, CMP, JUVE #### [facility] [address] [address] [address] Moris Winter Potassium [Moles/Vol] 3.5 mmol/L Normal 3.5-5.1 [facility] Comment on above: Performed By: #### L IPA, CMP, JUVE #### [facility] [address] [address] [address] Moris Wniter Protein [Mass/Vol] 7.7 g/dL Normal 6.4-8.2 [facility] Comment on above: Performed By: #### L IPA, CMP, JUVE #### [facility] [address] [address] [address] Moris Winter Sodium [Moles/Vol] 139 mmol/L Normal 136-145 [facility] Comment on above: Performed By: #### L IPA, CMP, JUVE #### [facility] [address] [place], [place] [address] Dr. Moris Winter Urea nitrogen [Mass/Vol] 11.0 mg/dL Normal 7.0-18.0 [facility] Comment on above: Performed By: #### L IPA, CMP, JUVE #### [facility] [address] [place], [place] [address] Dr. Moris Winter Urea nitrogen/Creatinine [Mass ratio] 15.1 mg/mg Normal [facility] Comment on above: Performed By: #### L IPA, CMP, JUVE #### [facility] [address] [place], [place] [address] Dr. Moris Winter Alanine aminotransferase [En zymatic activity/volume] in Serum or PlasmaOrdered By: Nataly Toure on 05-28-2022 ALT [Catalytic activity/Vol] 10 U/L 7-52 [facility] Albumin [Mass/volume] in Ser um or Plasma by Bromocresol green (BCG) dye binding methoOrdered By: Nataly Toure on 05-28-2022 Albumin BCG dye [Mass/Vol] 3.9 g/dL 3.5-5.7 [facility] Alkaline phosphatase [Enzyma tic activity/volume] in Serum or PlasmaOrdered By: Nataly Toure on 05-28-2022 ALP [Catalytic activity/Vol] 87 U/L 34-104 [facility] Aspartate aminotransferase [ Enzymatic activity/volume] in Serum or PlasmaOrdered By: Nataly Toure on 05-28-2022 AST [Catalytic activity/Vol] 11 U/L 13-39 [facility] Basophils Auto (Bld) [#/Vol] Ordered By: Nataly Jerniganc on 05-28-2022 Basophils (Bld) [#/Vol] 0.0 10*3/uL 0.0-0.2 [facility] Basophils/100 WBC Auto (Bld) Ordered By: Nataly Jerniganc on 05-28-2022 Basophils/100 WBC (Bld) 0.6 % . [facility] Bilirubin.total [Mass/volume ] in Serum or PlasmaOrdered By: Nataly Toure on 05-28-2022 Bilirubin [Mass/Vol] 0.4 mg/dL 0.3-1.0 [facility] Calcium [Mass/volume] in Ser um or PlasmaOrdered By: Nataly Toure on 05-28-2022 Calcium [Mass/Vol] 9.1 mg/dL 8.6-10.3 [facility] Carbon dioxide, total [Moles /volume] in Serum or PlasmaOrdered By: Nataly Toure on 05-28-2022 CO2 [Moles/Vol] 27.6 mmol/L 21.0-31.0 [facility] Chloride [Moles/volume] in S rosa or PlasmaOrdered By: Nataly Toure on 05-28-2022 Chloride [Moles/Vol] 102 mmol/L 98-107 [facility] Cholesterol [Mass/volume] in Serum or PlasmaOrdered By: Nataly Toure on 05-28-2022 Cholesterol [Mass/Vol] 269 mg/dL 140-200 [facility] Comment on above: Chol less than 200 m g/dl low riskChol 201-239 mg/dl borderline riskChol 240 mg/dl and greater high risk Cholesterol in LDL Calc [Mas s/Vol]Ordered By: Nataly Toure on 05-28-2022 Cholesterol in LDL [Mass/Vol] TNP [facility] Comment on above: Test not performed Cholesterol in LDL [Mass/vol ume] in Serum or PlasmaOrdered By: Nataly Toure on 05-28-2022 Cholesterol in LDL [Mass/Vol] 82 mg/dL 0-100 [facility] Comment on above: LDL ATP III CLASSIFI CATIONLDL less than 100 mg/dL OptimalLDL 100-129 mg/dL Near or above optimalLDL 130-159 mg/dL Borderline highLDL 160-189 mg/dL HighLDL greater than 189 mg/dL Very high Cholesterol in VLDL Calc [Ma ss/Vol]Ordered By: Nataly Toure on 05-28-2022 Cholesterol in VLDL [Mass/Vol] 187 mg/dL [facility] Creatinine [Mass/volume] in Serum or PlasmaOrdered By: Nataly Toure on 05-28-2022 Creatinine [Mass/Vol] 0.68 mg/dL 0.60-1.20 [facility] Eosinophils Auto (Bld) [#/Vo l]Ordered By: Nataly Toure on 05-28-2022 Eosinophils (Bld) [#/Vol] 0.2 10*3/uL 0.0-0.45 [facility] Eosinophils/100 WBC Auto (Bl d)Ordered By: Nataly Toure on 05-28-2022 Eosinophils/100 WBC (Bld) 2.1 % . [facility] Erythrocyte distribution wid th Auto (RBC) [Ratio]Ordered By: Nataly Toure on 05-28-2022 Erythrocyte distribution width (RBC) [Ratio] 14.5 % 11.9-15.3 [facility] Free thyroxine indexOrdered By: Nataly Toure on 05-28-2022 Free T4 index Calc [Mass/Vol] 2.9 1.2-4.9 [facility] Globulin Calc (S) [Mass/Vol] Ordered By: Nataly Toure on 05-28-2022 Globulin (S) [Mass/Vol] 3.6 g/dL [facility] Glucose [Mass/volume] in Ser um or PlasmaOrdered By: Nataly Toure on 05-28-2022 Glucose [Mass/Vol] 95 mg/dL 70-100 [facility] Comment on above: ADA recommended refe rence rangeRandom Glucose Reference Range is dependent on time and content of last meal. Glucose of more than 200 mg/dL in a nonstressed, ambulatory subject supports the diagnosis of Diabetes Mellitus. Glucose mean value [Mass/vol ume] in Blood Estimated from glycated hemoglobinOrdered By: Nataly Toure on 05-28-2022 Average glucose Estimated from glycated hemoglobin (Bld) [Mass/Vol] 111 mg/dL [facility] Hematocrit Auto (Bld) [Volum e fraction]Ordered By: Nataly Toure on 05-28-2022 Hematocrit (Bld) [Volume fraction] 38.2 % 34.0-46.4 [facility] Hemoglobin A1c percentageOrd ered By: Nataly Toure on 05-28-2022 HbA1c (Bld) [Mass fraction] 5.5 % 4.3-5.6 [facility] Comment on above: Increased risk for d iabetes: 5.7 - 6.4diabetes: >6.4glycemic control for adults with diabetes: <7.0 Hemoglobin [Mass/volume] in BloodOrdered By: Nataly Toure on 05-28-2022 Hemoglobin (Bld) [Mass/Vol] 12.9 g/dL 11.8-15.4 [facility] Iron [Mass/volume] in Serum or PlasmaOrdered By: Nataly oTure on 05-28-2022 Iron [Mass/Vol] 30 ug/dL 50-212 [facility] Iron binding capacity [Mass/ volume] in Serum or PlasmaOrdered By: Nataly Toure on 05-28-2022 Iron binding capacity [Mass/Vol] 449 ug/dL 255-450 [facility] Iron saturation [Mass Fracti on] in Serum or PlasmaOrdered By: Nataly Toure on 05-28-2022 Iron saturation [Mass fraction] 6.7 % 20-50 [facility] Leukocytes [#/volume] correc kee for nucleated erythrocytes in Blood by Automated counOrdered By: Nataly Toure on 05-28-2022 WBC corrected for nucl RBC Auto (Bld) [#/Vol] 7.3 10*3/uL 3.8-11.6 [facility] Lymphocytes Auto (Bld) [#/Vo l]Ordered By: Nataly Toure on 05-28-2022 Lymphocytes (Bld) [#/Vol] 1.9 10*3/uL 1.00-4.8 [facility] Lymphocytes/100 WBC Auto (Bl d)Ordered By: Nataly Toure on 05-28-2022 Lymphocytes/100 WBC (Bld) 26.6 % . [facility] MCH Auto (RBC) [Entitic mass ]Ordered By: Nataly Toure on 05-28-2022 MCH (RBC) [Entitic mass] 26.9 pg 24.7-34.3 [facility] MCHC Auto (RBC) [Mass/Vol]Or dered By: Nataly Toure on 05-28-2022 MCHC (RBC) [Mass/Vol] 33.8 g/dL 32.0-35.0 [facility] MCV Auto (RBC) [Entitic vol] Ordered By: Nataly Toure on 05-28-2022 MCV (RBC) [Entitic vol] 79.6 fL 80-100 [facility] Monocytes Auto (Bld) [#/Vol] Ordered By: Nataly Toure on 05-28-2022 Monocytes (Bld) [#/Vol] 0.6 10*3/uL 0.0-0.8 [facility] Monocytes/100 WBC Auto (Bld) Ordered By: Nataly Toure on 05-28-2022 Monocytes/100 WBC (Bld) 7.7 % . [facility] Neutrophils Auto (Bld) [#/Vo l]Ordered By: Nataly Toure on 05-28-2022 Neutrophils (Bld) [#/Vol] 4.6 10*3/uL 1.8-7.7 [facility] Neutrophils/100 WBC Auto (Bl d)Ordered By: Nataly Toure on 05-28-2022 Neutrophils/100 WBC (Bld) 63.0 % . [facility] No Panel InformationOrdered By: Nataly Toure on 05-28-2022 Estimated GFR (CKD-EPI) > 60.0 mL/Min [facility] Free Thyroxine (T4) Direct 10.8 ug/dL 4.5-12.0 [facility] Creatinine Clearance (Chem N/A [facility] Nucleated erythrocytes [Pres ence] in Blood by Automated countOrdered By: Nataly Toure on 05-28-2022 Nucleated RBC Auto Ql (Bld) 0.4 /100{WBC} 0-0.5 [facility] Platelet mean volume Auto (B ld) [Entitic vol]Ordered By: Nataly Toure on 05-28-2022 Platelet mean volume (Bld) [Entitic vol] 9.0 fL 6.3-10.7 [facility] Platelets Auto (Bld) [#/Vol] Ordered By: Nataly Toure on 05-28-2022 Platelets (Bld) [#/Vol] 247 10*3/uL 150-450 [facility] Potassium [Moles/volume] in Serum or PlasmaOrdered By: Nataly Toure on 05-28-2022 Potassium [Moles/Vol] 3.8 mmol/L 3.5-5.1 [facility] Protein [Mass/volume] in Ser um or PlasmaOrdered By: Nataly Toure on 05-28-2022 Protein [Mass/Vol] 7.5 g/dL 6.4-8.9 [facility] RBC Auto (Bld) [#/Vol]Ordere d By: Nataly Toure on 05-28-2022 RBC (Bld) [#/Vol] 4.80 10*6/uL 3.60-5.00 [facility] Serum or plasma albumin/glob ulin mass ratioOrdered By: Nataly Toure on 05-28-2022 Albumin/Globulin [Mass ratio] 1.1 {ratio} [facility] Serum or plasma anion gap de terminationOrdered By: Nataly Toure on 05-28-2022 Anion gap [Moles/Vol] 12.2 mmol/L 6.0-15.0 [facility] Serum or plasma high density lipoprotein (HDL) cholesterol measurementOrdered By: Nataly Toure on 05-28-2022 Cholesterol in HDL [Mass/Vol] 42 mg/dL 35-85 [facility] Comment on above: HDL CHOL ATP-III CLA SSIFICATION Cardiovascular RiskHDL > or equal to 60 mg/dL LOWHDL < 40 mg/dL HIGH Serum or plasma thyroperoxid ase antibody assay (units/volume)Ordered By: Nataly Toure on 05-28-2022 TPO Ab Qn [IU]/mL 0-34 [facility] Comment on above: Performed at: [facility] [employer] [address] [id number] Director: Sam Lopez PhD, Phone: [phone] Serum or plasma total choles terol/high density lipoprotein (HDL) cholesterol mass ratOrdered By: Nataly Toure on 05-28-2022 Cholesterol.total/Chol esterol in HDL [Mass ratio] 6.4 {ratio} <5.0 [facility] Sodium [Moles/volume] in Ser um or PlasmaOrdered By: Nataly Toure on 05-28-2022 Sodium [Moles/Vol] 138 mmol/L 136-145 [facility] TSH DL <= 0.005 mIU/L QnOrde red By: Nataly Toure on 05-28-2022 TSH Qn 2.330 m[IU]/L 0.450-4.50 0 [facility] Transferrin [Mass/volume] in Serum or PlasmaOrdered By: Nataly Toure on 05-28-2022 Transferrin [Mass/Vol] 321 mg/dL 203-362 [facility] Triglyceride [Mass/volume] i n Serum or PlasmaOrdered By: Nataly Toure on 05-28-2022 Triglyceride [Mass/Vol] 939 mg/dL 0-149 [facility] Comment on above: If the triglyceride result is greater than 400, LDLC and related calculations cannot be calculated and resulted.TRIG ATP III CLASSIFICATIONTRIG less than 150 mg/dL NormalTRIG 150-199 mg/dL Borderline highTRIG 200-500 mg/dL High TRIG greater than 500 mg/dL Very highStandard traceable to the Center for Disease Conrtrol and Prevention (CDC) test method. Triiodothyronine (T3) [Mass/ volume] in Serum or PlasmaOrdered By: Nataly Toure on 05-28-2022 T3 [Mass/Vol] 186 ng/dL 71-180 [facility] Triiodothyronine (T3) resin uptake testOrdered By: Nataly Toure on 05-28-2022 T3RU 27 % 24-39 [facility] Urea nitrogen [Mass/volume] in Serum or PlasmaOrdered By: Nataly Toure on 05-28-2022 Urea nitrogen [Mass/Vol] 11 mg/dL 7-25 [facility] WBC Auto (Bld) [#/Vol]Ordere d By: Nataly Toure on 05-28-2022 WBC (Bld) [#/Vol] 7.3 10*3/uL 3.8-11.6 [facility] XR LSPINE 2_3 VIEWSon 2022 XR LSPINE 2_3 VIEWS XR LSPINE 2_3 VIEWS: 03/15/2022 9:17 PM EST CLINICAL HISTORY: 21 years old Female with low back Pain TECHNIQUE: AP, lateral and spot lumbosacral lateral views of the lumbar spine are obtained. COMPARISON: X-ray performed . FINDINGS: 5 lumbar-type vertebral body segments maintain normal vertebral body height and alignment. No acute fracture or dislocation. Intervertebral disc space heights are normally maintained. The pedicles are normally preserved. The sacroiliac joints are not abnormally widened. IMPRESSION: No acute fracture or dislocation. Electronically authenticated by: PILI MIGUEL Date: 2022-03-15 22:[address] [facility] CBC AUTO DIFFon 03-15-2022 BASO # 0.0 103/ul Normal 0.0-0.[address] [facility] Comment on above: Performed By: #### P REGU #### [facility] [address] [place] [address] Dr. Moris Winter Basophils/100 WBC (Bld) 0.1 % Critically low 0.2-2.0 [facility] Comment on above: Performed By: #### P REGU #### [facility] [address] [place] [address] Dr. Moris Winter EO # 0.1 103/ul Normal 0.0-0.7 [facility] Comment on above: Performed By: #### P REGU #### [facility] [address] [place] [address] Dr. Moris Winter Eosinophils/100 WBC (Bld) 0.8 % Critically low 0.9-7.0 [facility] Comment on above: Performed By: #### P REGU #### [facility] [address] [place] [address] Dr. Moris Winter Erythrocyte distribution width (RBC) [Ratio] 13.3 % Normal 11.0-15.0 [facility] Comment on above: Performed By: #### P REGU #### [facility] [address] [place] [address] Dr. Moris Winter Hematocrit (Bld) [Volume fraction] 37.4 % Normal 36.0-48.0 [facility] Comment on above: Performed By: #### P REGU #### [facility] [address] [place] [address] Dr. Moris Winter Hemoglobin (Bld) [Mass/Vol] 13.2 g/dL Normal 12.0-16.[address] [facility] Comment on above: Performed By: #### P REGU #### [facility] [address] [place] [address] Dr. Moris Winter IG # 0.02 10e3/ul Normal 0.00-0.03 [facility] Comment on above: Performed By: #### P REGU #### [facility] [address] [place] [address] Dr. Moris Winter IG % 0.2 % Normal 0.0-0.5 [facility] Comment on above: Performed By: #### P REGU #### [facility] [address] [place] [address] Dr. Moris Winter LYMPH # 1.2 103/ul Normal 1.2-3.8 [facility] Comment on above: Performed By: #### P REGU #### [facility] [address] [place] [address] Dr. Moris Winter Lymphocytes/100 WBC (Bld) 14.6 % Critically low 20.5-60.0 [facility] Comment on above: Performed By: #### P REGU #### [facility] [address] [place] [address] Dr. Moris Winter MANUAL DIFF REQ NO Normal [facility] Comment on above: Performed By: #### P REGU #### [facility] [address] [place] [address] Dr. Moris Winter MCH (RBC) [Entitic mass] 27.3 pg Normal 26.7-34.[address] [facility] Comment on above: Performed By: #### P REGU #### [facility] [address] [place] [address] Dr. Moris Winter MCHC (RBC) [Mass/Vol] 35.3 g/dL Critically high 29.9-35.[address] [facility] Comment on above: Performed By: #### P REGU #### [facility] [address] [place] [address] Dr. Moris Winter MCV (RBC) [Entitic vol] 77.3 fL Critically low 81.0-99.0 [facility] Comment on above: Performed By: #### P REGU #### [facility] [address] [place] [address] Dr. Moris Winter MONO # 0.5 103/ul Normal 0.3-0.[address] [facility] Comment on above: Performed By: #### P REGU #### [facility] [address] [place] [address] Dr. Moris Winter Monocytes/100 WBC (Bld) 5.4 % Normal 1.7-12.[address] [facility] Comment on above: Performed By: #### P REGU #### [facility] [address] [place] [address] Dr. Moris Winter NEUT # 6.5 103/ul Normal 1.4-6.5 [facility] Comment on above: Performed By: #### P REGU #### [facility] [address] [place] [address] Dr. Moris Winter Neutrophils/100 WBC (Bld) 78.9 % Critically high 43.0-75.[address] [facility] Comment on above: Performed By: #### P REGU #### [facility] [address] [place] [address] Dr. Moris Winter Platelet mean volume (Bld) [Entitic vol] 10.1 fL Normal 9.5-13.[address] [facility] Comment on above: Performed By: #### P REGU #### [facility] [address] [place] [address] Dr. Moris Winter PLT 256 103/ul Normal 150-[address] [facility] Comment on above: Performed By: #### P REGU #### [facility] [address] [place] [address] Dr. Moris Winter RBC 4.84 106/ul Normal 4.20-5.[address] [facility] Comment on above: Performed By: #### P REGU #### [facility] [address] [place] [address] Dr. Moris Winter WBC 8.3 103/ul Normal 4.0-11.0 [facility] Comment on above: Performed By: #### P REGU #### [facility] [address] [place] [address] Dr. Moris Winter CRPon 03-15-2022 CRP 3.3 mg/dL Critically high <=1.0 [facility] Comment on above: Performed By: #### B MP, CRP #### [facility] [address] [place] [address] Dr. Moris Winter URon 03-15-2022 , QUAL Negative Normal NEGATIVE [facility] Comment on above: Performed By: #### P REGU #### [facility] [address] [place] [address] Dr. Moris Winter PROF CHEM 8 (BAS METB)on Anion gap [Moles/Vol] 15.8 mmol/L Normal [facility] Comment on above: Performed By: #### B MP, CRP #### [facility] [address] [place] [address] Dr. Moris Winter Calcium [Mass/Vol] 8.6 mg/dL Normal 8.5-10.[address] [facility] Comment on above: Performed By: #### B MP, CRP #### [facility] [address] [place] [address] Dr. Moris Winter Chloride [Moles/Vol] 98 mmol/L Normal 98-[address] [facility] Comment on above: Performed By: #### B MP, CRP #### [facility] [address] [place] [address] Dr. Moris Winter CO2 [Moles/Vol] 26.7 mmol/L Normal 21.0-32.[address] [facility] Comment on above: Performed By: #### B MP, CRP #### [facility] [address] [place] [address] Dr. Moris Winter Creatinine [Mass/Vol] 0.80 mg/dL Normal 0.55-1.[address] [facility] Comment on above: Performed By: #### B MP, CRP #### [facility] [address] [address] [address] Moris Winter EGFR-AF TRISTANIAN >60 Normal >=[address] [facility] Comment on above: Performed By: #### B MP, CRP #### [facility] [address] [place] [address] Dr. Moris Winter EGFR-NON AF TRISTANIAN >60 Normal >=60 [facility] Comment on above: Performed By: #### B MP, CRP #### [facility] [address] [address] [address] Moris Winter Glucose [Mass/Vol] 103 mg/dL Normal 74-[address] [facility] Comment on above: Performed By: #### B MP, CRP #### [facility] [address] [place] [address] Dr. Moris Winter Potassium [Moles/Vol] 3.5 mmol/L Normal 3.5-5.1 [facility] Comment on above: Performed By: #### B MP, CRP #### [facility] [address] [address] [address] Moris Winter Sodium [Moles/Vol] 137 mmol/L Normal 136-[address] [facility] Comment on above: Performed By: #### B MP, CRP #### [facility] [address] [address] [address] Moris Winter Urea nitrogen [Mass/Vol] 15.0 mg/dL Normal 7.0-18.0 [facility] Comment on above: Performed By: #### B MP, CRP #### [facility] [address] [place] [address] Dr. Moris Winter Urea nitrogen/Creatinine [Mass ratio] 18.8 mg/mg Normal [facility] Comment on above: Performed By: #### B MP, CRP #### [facility] [address] [place] [address] Dr. Moris Winter SED RATE [facility] 2022 SED RATE 51 mm/hr Critically high <=20 [facility] Comment on above: Performed By: #### P REGU #### [facility] [address] [place] [address] Dr. Moris Winter Amphetamine Screen Ql (U)Ord ered By: TELMA Smith on 10-18-2021 Amphetamines Ql (U) Negative Negative [facility] Automated erythrocytes count in urine sediment (number/area)Ordered By: TELMA Smith on 10-18-2021 RBC Auto (Urine sed) [#/Area] 1-2 [HPF] 0-4 [facility] Automated leukocytes count i n urine sediment (number/area)Ordered By: TELMA Smiht on 10-18-2021 WBC Auto (Urine sed) [#/Area] 20-49 [HPF] 0-4 [facility] Barbiturates [Presence] in U rineOrdered By: TELMA Smith on 10-18-2021 Barbiturates Ql (U) Negative Negative [facility] Basophils Auto (Bld) [#/Vol] Ordered By: TELMA Smith on 10-18-2021 Basophils (Bld) [#/Vol] 0.0 10*3/uL 0.0-0.2 [facility] Basophils/100 WBC Auto (Bld) Ordered By: ETLMA Smith on 10-18-2021 Basophils/100 WBC (Bld) 0.3 % . [facility] Benzodiazepines [Presence] i n UrineOrdered By: TELMA Smith on 10-18-2021 Benzodiazepines Ql (U) Negative Negative [facility] Bilirubin Test strip Ql (U)O rdered By: TELMA Smith on 10-18-2021 Bilirubin Ql (U) Negative Negative [facility] Blood hemoglobin measurement (mass/volume)Ordered By: TELMA Smith on 10-18-2021 Hemoglobin (Bld) [Mass/Vol] 11.3 g/dL 11.8-15.4 [facility] Blood leukocytes automated c ount (number/volume)Ordered By: TELMA Smith on 10-18-2021 WBC (Bld) [#/Vol] 10.1 10*3/uL 4.5-11.0 [facility] COVID-19 SOFIAOrdered By: MD DESEAN Smith on 10-18-2021 SARS-CoV+SARS-CoV-2 (COVID-19) Ag IA.rapid Ql (Resp) Negative Negative [facility] Comment on above: This is a duplicate [place] SARS Antigen (AUTUMN) result to be used for statistical tracking purpose only. Color Auto (U)Ordered By: MD DESEAN Smith on 10-18-2021 Color (U) Yellow Yellow [facility] Eosinophils Auto (Bld) [#/Vo l]Ordered By: TELMA Smith on 10-18-2021 Eosinophils (Bld) [#/Vol] 0.1 10*3/uL 0.0-0.45 [facility] Eosinophils/100 WBC Auto (Bl d)Ordered By: TELMA Smith on 10-18-2021 Eosinophils/100 WBC (Bld) 1.3 % . [facility] Erythrocyte distribution wid th Auto (RBC) [Ratio]Ordered By: TELMA Smith on 10-18-2021 Erythrocyte distribution width (RBC) [Ratio] 15.6 % 11.9-15.3 [facility] Hematocrit Auto (Bld) [Volum e fraction]Ordered By: TELMA Smith on 10-18-2021 Hematocrit (Bld) [Volume fraction] 34.9 % 34.0-46.4 [facility] Ketones Auto test strip (U) [Mass/Vol]Ordered By: TELMA Smith on 10-18-2021 Ketones (U) [Mass/Vol] Trace Negative [facility] Ordered By: TELMA Smith on 10-18-2021 Opiates Ql (U) Negative Negative [facility] - Hematology and Cell countsOrdered By: TELMA Smith on 10-18-2021 Nucleated RBC/100 WBC (Bld) [Ratio] 0.1 % 0-0.5 [facility] - UrinalysisOrder ed By: TELMA Smith on 10-18-2021 Hyaline casts LM Ql (Urine sed) 9-19 [LPF] 0-8 [facility] Lymphocytes Auto (Bld) [#/Vo l]Ordered By: TELMA Smith on 10-18-2021 Lymphocytes (Bld) [#/Vol] 1.7 10*3/uL 1.00-4.8 [facility] Lymphocytes/100 WBC Auto (Bl d)Ordered By: TELMA Smith on 10-18-2021 Lymphocytes/100 WBC (Bld) 17.0 % . [facility] MCH Auto (RBC) [Entitic mass ]Ordered By: TELMA Smith on 10-18-2021 MCH (RBC) [Entitic mass] 25.9 pg 24.7-34.3 [facility] MCHC Auto (RBC) [Mass/Vol]Or dered By: TELMA Smith on 10-18-2021 MCHC (RBC) [Mass/Vol] 32.5 g/dL 32.0-35.0 [facility] MCV Auto (RBC) [Entitic vol] Ordered By: TELMA Smith on 10-18-2021 MCV (RBC) [Entitic vol] 79.6 fL 80-100 [facility] Monocytes Auto (Bld) [#/Vol] Ordered By: TELMA Smith on 10-18-2021 Monocytes (Bld) [#/Vol] 0.8 10*3/uL 0.0-0.8 [facility] Monocytes/100 WBC Auto (Bld) Ordered By: TELMA Smith on 10-18-2021 Monocytes/100 WBC (Bld) 8.1 % . [facility] Neutrophils Auto (Bld) [#/Vo l]Ordered By: TELMA Smith on 10-18-2021 Neutrophils (Bld) [#/Vol] 7.4 10*3/uL 1.8-7.7 [facility] Neutrophils/100 WBC Auto (Bl d)Ordered By: TELMA Smith on 10-18-2021 Neutrophils/100 WBC (Bld) 73.3 % . [facility] Nitrite Test strip Ql (U)Ord ered By: TELMA Smith on 10-18-2021 Nitrite Ql (U) Negative Negative [facility] No Panel InformationOrdered By: TELMA Smith on 10-18-2021 SARS Antigen (LFIA) [facility] Phencyclidine Screen Ql (U)O rdered By: TELMA Smith on 10-18-2021 Phencyclidine Ql (U) Negative Negative [facility] Comment on above: These are unconfirme d results and should not be used for legal purposes. Drug Cut-Off Concentration: AMPH 1000 ng/mL FAVIOLA 200 ng/mL THA 200 ng/mL COCM 300 ng/mL OP 300 ng/mL PCP 25 ng/mL Platelet mean volume Auto (B ld) [Entitic vol]Ordered By: TELMA Smith on 10-18-2021 Platelet mean volume (Bld) [Entitic vol] 9.7 fL 6.3-10.7 [facility] Platelets Auto (Bld) [#/Vol] Ordered By: TELMA Smith on 10-18-2021 Platelets (Bld) [#/Vol] 190 10*3/uL 150-450 [facility] Protein Auto test strip (U) [Mass/Vol]Ordered By: TELMA Smith on 10-18-2021 Protein (U) [Mass/Vol] Trace mg/dL Negative F [facility] RBC Auto (Bld) [#/Vol]Ordere d By: TELMA Smith on 10-18-2021 RBC (Bld) [#/Vol] 4.38 10*6/uL 3.60-5.00 [facility] S. agalactiae Org specific c x Ql (Unsp spec)Ordered By: Radha Molina on 10-18-2021 Group B Streptococcus Culture Strep. agalactiae Grp B [facility] Specific gravity Auto test s trip (U) [Rel density]Ordered By: TELMA Smith on 10-18-2021 Specific gravity (U) [Rel density] 1.020 1.001-1.03 0 [facility] Squamous epithelial cells de tection in urine sediment by light microscopyOrdered By: TELMA Smith on 10-18-2021 Epithelial cells.squamous LM Ql (Urine sed) 5-9 [HPF] 0-2 [facility] Urine bacteria detection by automated methodOrdered By: TELMA Smith on 10-18-2021 Bacteria Auto Ql (U) 1+ None Seen [facility] Urine clarity by refractomet ry automatedOrdered By: TELMA Smith on 10-18-2021 Clarity Refractometry automated (U) Cloudy Clear [facility] Urine cocaine detectionOrder ed By: TELMA Smith on 10-18-2021 Cocaine Ql (U) Negative Negative [facility] Urine glucose measurement by automated test strip (mass/volume)Ordered By: SHELLIE Smith on 10-18-2021 Glucose Auto test strip (U) [Mass/Vol] Normal mg/dL Normal [facility] Urine hemoglobin detection b y automated test stripOrdered By: TELMA Smith on 10-18-2021 Hemoglobin Auto test strip Ql (U) Negative Negative [facility] Urine leukocyte esterase det ection by automated test stripOrdered By: TELMA Smith on 10-18-2021 Leukocyte esterase Auto test strip Ql (U) 3+ Negative [facility] Urobilinogen Auto test strip (U) [Mass/Vol]Ordered By: TELMA Smith on 10-18-2021 Urobilinogen (U) [Mass/Vol] Normal mg/dL Normal [facility] pH Auto test strip (U)Ordere d By: TELMA Smith on 10-18-2021 pH (U) 6.5 [pH] 5.0-9.0 [facility] UA (CLEAN/CATCH) CALCINER FEEDER/MICRO I F IND.on 08-31-2021 Bilirubin Ql (U) Negative Normal NEGATIVE [facility] Comment on above: Performed By: #### U JOANN AVALOS #### [facility] [address] [place] [address] Dr. Moris Winter Clarity (U) SL CLOUDY Abnormal CLEAR [facility] Comment on above: Performed By: #### U ACSJALEEL MACKEYRO #### [facility] [address] [address] [address] Moris Winter Color (U) LT. YELLOW Normal YELLOW [facility] Comment on above: Performed By: #### U ACSIND, UMICRO #### [facility] [address] [address] [address] Moris Winter Glucose Ql (U) Negative Normal NEGATIVE [facility] Comment on above: Performed By: #### U ACSIND, UMICRO #### [facility] [address] [address] [address] Moris Winter Hemoglobin Ql (U) TRACE-INTACT Abnormal NEGATIVE [facility] Comment on above: Performed By: #### U ACSIND, UMICRO #### [facility] [address] [address] [address] Moris Winter Ketones Ql (U) Negative Normal NEGATIVE [facility] Comment on above: Performed By: #### U ACSIND, UMICRO #### [facility] [address] [place] [address] Dr. Moris Winter LEUKOCYTES TRACE Abnormal NEGATIVE [facility] Comment on above: Performed By: #### U ACSIND, UMICRO #### [facility] [address] [address] [address] Moris Winter Nitrite Ql (U) Negative Normal NEGATIVE [facility] Comment on above: Performed By: #### U ACSNARENDRA, UMICRO #### [facility] [address] [address] [address] Moris Winter pH (U) 7.0 [pH] Normal 5-[address] [facility] Comment on above: Performed By: #### U ACSNARENDRA, UMICRO #### [facility] [address] [address] [address] Moris Winter SPEC GRAVITY 1.010 Normal 1.005-<=1. [address] [facility] Comment on above: Performed By: #### U ACSIND, UMICRO #### [facility] [address] [place] [address] Dr. Moris Winter UA PROTEIN Negative Normal NEGATIVE/ TRACE [facility] Comment on above: Performed By: #### U ACSIND, UMICRO #### [facility] [address] [address] [address] Moris Winter UR MICRO IND INDICATED Normal [facility] Comment on above: Performed By: #### U ACSNARENDRA, UMICRO #### [facility] [address] [place] [address] Dr. Moris Winter Urobilinogen Qn (U) 0.2 {Marcin'U}/dL Normal 0.2 - 1. [address] [facility] Comment on above: Performed By: #### U ACSNARENDRA, UMICRO #### [facility] [address] [place] [address] Dr. Moris Winter URINE MICROSCOPIC ONLYon BACTERIA NONE SEEN Normal NONE SEEN [facility] Comment on above: Performed By: #### U ACSNARENDRA UMICRO #### [facility] [address] [place] [address] Dr. Moris Winter Bacteria identified Cx Nom (U) NOT INDICATED Normal [facility] Comment on above: Performed By: #### U ACSNARENDRA UMICRO #### [facility] [address] [place] [address] Dr. Moris Winter CAST NONE SEEN Normal NONE SEEN [facility] Comment on above: Performed By: #### U ACSNARENDRA UMICRO #### [facility] [address] [place] [address] Dr. Moris Winter Crystals LM Nom (Urine sed) NONE SEEN Normal NONE SEEN [facility] Comment on above: Performed By: #### U ACSNARENDRA UMICRO #### [facility] [address] [place] [address] Dr. Moris Winter Epithelial cells LM Ql (Urine sed) MODERATE Abnormal NONE SEEN /RARE [facility] Comment on above: Performed By: #### U ACSNARENDRA UMICRO #### [facility] [address] [place] [address] Dr. Moris Winter MUCOUS NONE SEEN Normal NONE SEEN [facility] Comment on above: Performed By: #### U ACSNARENDRA, UMICRO #### [facility] [address] [place] [address] Dr. Moris Winter RBC 0-2 Normal 0-2 [facility] Comment on above: Performed By: #### U JALEEL AVALOSRO #### [facility] [address] [address] [address] Moris Winter WBC 0-2 Abnormal NONE SEEN [facility] Comment on above: Performed By: #### U JALEEL AVALOSRO #### [facility] [address] [address] [address] Moris Winter Covid-19 PCR ([facility])on 07-17 SARS-CoV-2 (COVID-19) RNA SVETLANA+probe Ql (Unsp spec) Detected Critically abnormal NOT DETECTED [facility] Comment on above: Result Comment: This test is not yet approved or cleared by the [place] FDA. When there are no FDA-approved or cleared tests available, and other criteria are met, FDA can make tests available under an emergency access mechanism called an Emergency Use Authorization (EUA). The EUA for this test is supported by the [place] of Health and Human Service's declaration that circumstances exist to justify the emergency use of in vitro diagnostics for the detection and/or diagnosis of the virus that causes COVID-19. This EUA will remain in effect for the duration of the COVID-19 declaration justifying emergency of IVDs, unless it is terminated or revoked by the FDA (after which the test may no longer be used). Performed By: #### P REGU #### [facility] [address] [place] [address] Dr. Moris Winter INFLUENZA A AND B AGon 08-08 [facility] SEE BELOW Normal [facility] Comment on above: Result Comment: Nega tive for Flu A protein angiten. Infection due to Flu A cannot be ruled out. Flu A angiten in the sample may be below the detection limit of the test. Performed By: #### P REGU #### [facility] [address] [place] [address] Dr. [facility] SEE BEL[facility] Normal [facility] Comment on above: Result Comment: Nega tive for Flu B protein antigen. Infection due to Flu B cannot be ruled out. Flu B antigen in the sample may be below the detection limit of the test. Performed By: #### P REGU #### [facility] [address] [address] [address] Moris Winter INFLUENZA A AG Negative Normal NEGATIVE SEE COMMENT [facility] Comment on above: Performed By: #### P REGU #### [facility] [address] [address] [address] Moris Winter INFLUENZA B AG Negative Normal NEGATIVE SEE COMMENT [facility] Comment on above: Performed By: #### P REGU #### [facility] [address] [address] [address] Moris Winter INTERNAL CONTROLS Within Normal Limits Normal Wi thin Normal Limits [facility] Comment on above: Performed By: #### P REGU #### [facility] [address] [address] [address] Moris Winter Serum or plasma beta choriog onadotropin measurement (units/volume)Ordered By: Radha Molina on 07-21-2021 [place] [address].00 m[IU]/mL [facility] Comment on above: Approximate Approxim ate hCG Gestational Age Range (mIU/ml) (weeks) 0.2-1 5-50 1-2 50-500 2-3 100-5,000 3-4 500-10,000 4-5 1,000-50,000 5-6 10,000-100,000 6-8 15,000-200,000 8-12 10,000-100,000 Operative Reporton 9 Operative Report MR#: [id number] [facility] Pt. Name: Rosette Alba Room #: OR Discharge Date: Birthdate: 2000 OPERATIVE REPORT DATE OF SURGERY: 08/03/2018 SURGEON: Sharla Hicks M.D. ASSISTANTS: 1. Art Mancilla M.D. 2. Marleny Franco M.D. 3. Andie Carballo M.D. PREOPERATIVE DIAGNOSIS: Right ring finger nail bed injury. POSTOPERATIVE DIAGNOSIS: Right ring finger nail bed injury. PROCEDURE PERFORMED: 1. Irrigation and debridement down to and including bone and wound measuring 1 x 1 cm. 2. Removal of nail plate. 3. Repair of nail bed. DRAINS: None. SPECIMENS: None. IMPLANTS: None. INDICATIONS FOR PROCEDURE: The patient is a 18-year-old female, who previously suffered an injury to her right ring finger. She was previously seen an outside hospital where attempt was made to repair the nail bed. The patient presented to clinic yesterday with concerns for infection and failure of nail bed repair. Risks, benefits, and alternatives of surgery were discussed with the patient, who elected to proceed. PROCEDURE IN DETAIL: The patient was met in the preoperative holding area where the operative site was marked by attending physician. Informed consent was reviewed and deemed appropriate. The patient was taken back to the operating room where she was placed supine on the operating table. MAC anesthesia was induced. Digital block was performed using 11 mL of 1% lidocaine without epinephrine. Preoperative antibiotics were administered. The right upper extremity was sterilely prepped and draped in usual fashion. The right upper extremity was sterilely prepped and draped in usual fashion. Operative time-out was performed. We began by removing the remainder of the nail. Once the this was completed, we were able to inspect the nail bed. It was noted that the proximal and ulnar portions of the nail bed were relatively well preserved. However, there was significant injury to the distal radial portion of the nail bed including a small defect in the most distal radial aspect. This defect was found to communicate with the bone and that the bone was gently curetted. We then thoroughly irrigated the wound with Betadine as well as normal saline. We then used 5-[address] 3 simple interrupted sutures in the nail bed to perform a partial repair. After this was complete, it was determined there was no tissue to repair the defect and thus this was left as presented. We then placed Adaptic under the skin using a [place] and tied this down with a 5-0 chromic. We then placed bacitracin on the finger. The finger was then dressed with 4x4s as well as Kerlix and an Danis bandage. The patient was awoken from anesthesia and was transferred to PACU in stable condition. POSTOPERATIVE INSTRUCTIONS: The patient will remain nonweightbearing to the right hand at all times. She should leave her dressing on, dry and intact until followup with Dr. Hicks in clinic in 1 week. The patient already is on antibiotics and should continue her current prescription. Dr. Hicks was present for all critical portions of the case and was otherwise immediately available to assist. Electronically Signed by: Sharla Hicks M.D. 08/06/2018 09:16 A Sharla Hicks M.D. I was present for the akhtar and critical portions and I was otherwise immediately available to assist. Date Dict: 08/03/2018/07:05 P/Andie Carballo MD Date Trans: 08/03/2018 08:27 P/antony [id number] cc: Soraya Romo [address] [place] [id number] Normal [facility] POC GLUCOSE LABon 08-03-2018 Glucose [Mass/Vol] 105 mg/dL High 70-100 [facility] Comment on above: Performed By: #### [id number] #### [facility] [address] [place] [address], [facility] POC URINE PREGNANCYon 2018 Beta HCG ( test) Ql (U) Negative Normal NEGATIVE [facility] Comment on above: Result Comment: Perf ormed in PACU Performed By: #### [id number] #### [facility] [address] [facility] [address], [facility] Vital Signs Date Time Vital Sign Value Performing Clinician Faci lity 10-20-2023 08:28-040 Body height 160.02 cm [employer]GLED [employer]ARN WORKER-C Natayl Toure Work Phone: [facility] 10-20-2023 [id number] Body mass index (BMI) [Ratio] 38 kg/m2 T[employer]ED YARN WORKER-Anirudh Toure Work Phone: [facility] 10-20-2023 08:28-040 Body temperature 97.7 [degF] RONDA Toure Work Phone: [facility] 10-20-2023 08:28-0400 Body weight 97.52 kg [employer]ED YARN WORKER-C Nataly Spasic Work Phone: [facility] 10-20-2023 08:28-0400 Diastolic blood pressure 74 mm[Hg] [employer] YARN WORKER-C Nataly Spasic Work Phone: [facility] 10-20-2023 08:28-0400 Heart rate 75 /min [employer] WORKER-C Nataly Spasic Work Phone: [facility] 10-20-2023 08:28-0400 Respiratory rate 18 /min [employer] YARN WORKER-C Nataly Spasic Work Phone: [facility] 10-20-2023 08:28-0400 SaO2% (BldA) [Mass fraction] 99 % [employer] WORKER-C Nataly Spasic Work Phone: [facility] 10-20-2023 08:28-0400 Systolic blood pressure 107 mm[Hg] T[employer]GLED YARN WORKER-C Nataly Spasic Work Phone: [facility] 10-04-2023 22:40-0400 Body height 160.02 cm TANGLED YARN WORKER-C Nataly Spasic Work Phone: [facility] 10-04-2023 22:40-0400 Body temperature 97.7 [degF] T[employer]ARN WORKER-C Nataly Spasic Work Phone: [facility] 10-04-2023 22:40-0400 Body weight 95.5 kg T[employer]GLED YARN WORKER-C Nataly Spasic Work Phone: [facility] 10-04-2023 22:40-0400 Diastolic blood pressure 75 mm[Hg] T[employer]ED YARN WORKER-C Nataly Spasic Work Phone: [facility] 10-04-2023 22:40-0400 Heart rate 95 /min T[employer]GLED YARN WORKER-C Nataly Spasic Work Phone: [facility] 10-04-2023 22:40-0400 Respiratory rate 16 /min T[employer]GLED YARN WORKER-C Nataly Spasic Work Phone: [facility] 10-04-2023 22:40-0400 SaO2% (BldA) [Mass fraction] 98 % [employer]ARN WORKER-C Nataly Spasic Work Phone: [facility] 10-04-2023 22:40-0400 Systolic blood pressure 132 mm[Hg] T[employer]GLED YARN WORKER-C Nataly Spasic Work Phone: [facility] 09-26-2023 21:36-0400 Body temperature 98.1 [degF] T[employer]GLED YARN WORKER-C Nataly Spasic Work Phone: [facility] 09-26-2023 21:36-0400 Diastolic blood pressure 74 mm[Hg] TANGLED YARN WORKER-C Nataly Spasic Work Phone: [facility] 09-26-2023 21:36-0400 Heart rate 90 /min T[employer]GLED YARN WORKER-C Nataly Spasic Work Phone: [facility] 09-26-2023 21:36-0400 Respiratory rate 16 /min T[employer]GLED YARN WORKER-C Nataly Spasic Work Phone: [facility] 09-26-2023 21:36-0400 SaO2% (BldA) [Mass fraction] 99 % [employer]ARN WORKER-C Nataly Spasic Work Phone: [facility] 09-26-2023 21:36-0400 Systolic blood pressure 145 mm[Hg] TANGLED YARN WORKER-C Nataly Spasic Work Phone: [facility] 09-26-2023 21:35-0400 Body height 160.02 cm TANGLED YARN WORKER-C Nataly Spasic Work Phone: [facility] 09-26-2023 21:35-0400 Body weight 96.7 kg TANGLED YARN WORKER-C Nataly Spasic Work Phone: [facility] 08-20-2023 23:05-0400 Body height 160.02 cm TANGLED YARN WORKER-C Nataly Spasic Work Phone: [facility] 08-20-2023 23:05-0400 Body temperature 98.3 [degF] T[employer]GLED YARN WORKER-C Nataly Spasic Work Phone: [facility] 08-20-2023 23:05-0400 Body weight 97.5 kg TANGLED YARN WORKER-C Nataly Spasic Work Phone: [facility] 08-20-2023 23:05-0400 Diastolic blood pressure 66 mm[Hg] TANGLED YARN WORKER-C Nataly Spasic Work Phone: [facility] 08-20-2023 23:05-0400 Heart rate 90 /min T[employer]GLED YARN WORKER-C Nataly Spasic Work Phone: [facility] 08-20-2023 23:05-0400 Respiratory rate 20 /min T[employer]GLED YARN WORKER-C Nataly Spasic Work Phone: [facility] 08-20-2023 23:05-0400 SaO2% (BldA) [Mass fraction] 99 % T[employer]GLED YARN WORKER-C Nataly Spasic Work Phone: [facility] 08-20-2023 23:05-0400 Systolic blood pressure 136 mm[Hg] T[employer]GLED YARN WORKER-C Nataly Spasic Work Phone: [facility] 02-13-2023 21:40-0500 Body temperature 97.7 [degF] T[employer]GLED YARN WORKER-C Nataly Spasic Work Phone: [facility] 02-13-2023 21:40-0500 Diastolic blood pressure 87 mm[Hg] T[employer]ED YARN WORKER-C Nataly Spasic Work Phone: [facility] 02-13-2023 21:40-0500 Heart rate 100 /min T[employer]GLED YARN WORKER-C Nataly Spasic Work Phone: [facility] 02-13-2023 21:40-0500 Respiratory rate 18 /min T[employer]GLED YARN WORKER-C Nataly Spasic Work Phone: [facility] 02-13-2023 21:40-0500 SaO2% (BldA) [Mass fraction] 96 % T[employer]GLED YARN WORKER-C Nataly Spasic Work Phone: [facility] 02-13-2023 21:40-0500 Systolic blood pressure 140 mm[Hg] TANGLED YARN WORKER-C Nataly Spasic Work Phone: [facility] 02-13-2023 11:10-0500 Body height 160.02 cm TANGLED YARN WORKER-C Nataly Spasic Work Phone: [facility] 02-13-2023 11:10-0500 Body weight 99.79 kg TANGLED YARN WORKER-C Nataly Spasic Work Phone: [facility] 02-01-2023 19:30-0500 Body temperature 97.3 [degF] T[employer]GLED YARN WORKER-C Nataly Spasic Work Phone: [facility] 02-01-2023 19:30-0500 Diastolic blood pressure 75 mm[Hg] T[employer]GLED YARN WORKER-C Nataly Spasic Work Phone: [facility] 02-01-2023 19:30-0500 Heart rate 94 /min T[employer]GLED YARN WORKER-C Nataly Spasic Work Phone: [facility] 02-01-2023 19:30-0500 Respiratory rate 14 /min T[employer]GLED YARN WORKER-C Nataly Spasic Work Phone: [facility] 02-01-2023 19:30-0500 SaO2% (BldA) [Mass fraction] 98 % T[employer]GLED YARN WORKER-C Nataly Spasic Work Phone: [facility] 02-01-2023 19:30-0500 Systolic blood pressure 123 mm[Hg] TANGLED YARN WORKER-C Nataly Spasic Work Phone: [facility] 01-31-2023 09:00-0500 Body temperature 98 [degF] TANGLED YARN WORKER-C Nataly Spasic Work Phone: [facility] 01-31-2023 09:00-0500 Respiratory rate 16 /min TANGLED YARN WORKER-C Nataly Spasic Work Phone: [facility] 01-31-2023 08:46-0500 Diastolic blood pressure 57 mm[Hg] T[employer]GLED YARN WORKER-C Nataly Spasic Work Phone: [facility] 01-31-2023 08:46-0500 Heart rate 112 /min T[employer]GLED YARN WORKER-C Nataly Spasic Work Phone: [facility] 01-31-2023 08:46-0500 Systolic blood pressure 112 mm[Hg] TANGLED YARN WORKER-C Nataly Spasic Work Phone: [facility] 01-31-2023 06:31-0500 SaO2% (BldA) [Mass fraction] 96 % [employer] YARN WORKER-C Nataly Spasic Work Phone: [facility] 01-31-2023 00:08-0500 Body height 160.02 cm TANGLED YARN WORKER-C Nataly Spasic Work Phone: [facility] 01-31-2023 00:08-0500 Body weight 97.52 kg TANGLED YARN WORKER-C Nataly Spasic Work Phone: [facility] 01-21-2023 09:56-0500 Body height 157.48 cm TANGLED YARN WORKER-C Nataly Spasic Work Phone: [facility] 01-21-2023 09:56-0500 Body weight 81.64 kg TANGLED YARN WORKER-C Nataly Spasic Work Phone: [facility] 12-01-2022 18:06-0400 Diastolic blood pressure 75 mm[Hg] TANGLED YARN WORKER-C Nataly Spasic Work Phone: [facility] 12-01-2022 18:06-0400 Heart rate 109 /min T[employer]GLED YARN WORKER-C Nataly Spasic Work Phone: [facility] 12-01-2022 18:06-0400 Respiratory rate 17 /min T[employer]GLED YARN WORKER-C Nataly Spasic Work Phone: [facility] 12-01-2022 18:06-0400 SaO2% (BldA) [Mass fraction] 99 % T[employer] YARN WORKER-C Nataly Spasic Work Phone: [facility] 12-01-2022 18:06-0400 Systolic blood pressure 123 mm[Hg] TANGLED YARN WORKER-C Nataly Spasic Work Phone: [facility] 12-01-2022 14:32-0400 Body height 160.02 cm TANGLED YARN WORKER-C Nataly Spasic Work Phone: [facility] 12-01-2022 14:32-0400 Body temperature 97.6 [degF] TANGLED YARN WORKER-C Nataly Spasic Work Phone: [phone] [place] [address] 12-01-2022 14:32-0400 Body weight 101.2 kg TANGLED YARN WORKER-C Nataly Spasic Work Phone: [facility] 11-20-2022 19:00-0400 Respiratory rate 16 /min T[employer]GLED YARN WORKER-C Nataly Spasic Work Phone: [facility] 11-20-2022 18:14-0400 Diastolic blood pressure 65 mm[Hg] TANGLED YARN WORKER-C Nataly Spasic Work Phone: [facility] 11-20-2022 18:14-0400 Heart rate 100 /min T[employer]GLED YARN WORKER-C Nataly Spasic Work Phone: [facility] 11-20-2022 18:14-0400 Systolic blood pressure 131 mm[Hg] TANGLED YARN WORKER-C Nataly Spasic Work Phone: [facility] 11-20-2022 18:05-0400 SaO2% (BldA) [Mass fraction] 99 % T[employer]GLED YARN WORKER-C Nataly Spasic Work Phone: [facility] 11-20-2022 17:21-0400 Body height 160.02 cm TANGLED YARN WORKER-C Nataly Spasic Work Phone: [facility] 11-20-2022 17:21-0400 Body weight 98.88 kg TANGLED YARN WORKER-C Nataly Spasic Work Phone: [facility] 11-19-2022 13:49-0400 Respiratory rate 16 /min TANGLED YARN WORKER-C Nataly Spasic Work Phone: [facility] 11-19-2022 13:30-0400 Body temperature 97.4 [degF] TANGLED YARN WORKER-C Nataly Spasic Work Phone: [facility] 11-19-2022 12:53-0400 Diastolic blood pressure 71 mm[Hg] T[employer]GLED YARN WORKER-C Nataly Spasic Work Phone: [facility] 11-19-2022 12:53-0400 Heart rate 109 /min T[employer]GLED YARN WORKER-C Nataly Spasic Work Phone: [facility] 11-19-2022 12:53-0400 Systolic blood pressure 125 mm[Hg] TANGLED YARN WORKER-C Nataly Spasic Work Phone: [facility] 11-19-2022 12:49-0400 SaO2% (BldA) [Mass fraction] 99 % T[employer]GLED YARN WORKER-C Nataly Spasic Work Phone: [facility] 11-19-2022 12:23-0400 Body height 160.02 cm TANGLED YARN WORKER-C Nataly Spasic Work Phone: [facility] 11-19-2022 12:23-0400 Body weight 98.88 kg TANGLED YARN WORKER-C Nataly Spasic Work Phone: [facility] 10-18-2021 05:08-0400 Diastolic blood pressure 58 mm[Hg] DO Obdulia Oneil Work Phone: [facility] 10-18-2021 05:08-0400 Heart rate 96 /min DO Obdulia Oneil Work Phone: [facility] 10-18-2021 05:08-0400 SaO2% (BldA) [Mass fraction] 98 % DO Obdulia Oneil Work Phone: [facility] 10-18-2021 05:08-0400 Systolic blood pressure 118 mm[Hg] DO Obdulia Oneil Work Phone: [facility] 10-18-2021 05:00-0400 Body temperature 98.3 [degF] DO Obdulia Oneil Work Phone: [facility] 10-18-2021 05:00-0400 Respiratory rate 16 /min DO Obdulia Oneil Work Phone: [facility] 10-18-2021 01:57-0400 Body weight 102.51 kg DO Obdulia Oneil Work Phone: [facility] 10-18-2021 01:31-0400 Body height 160.02 cm DO Obdulia Oneil Work Phone: [facility] Encounters Encounter Date Encounter Type Care Provider Facility Start: 11-03-2023 ambulatory Nataly E Spasic Facility :[facility] Start: 10-20-2023 Registered Recurring T[employer]ED YARN WORKER-C Andrez a Spasic Work Phone: [facility] Acute Work Phone: Start: 10-20-2023 End: 10-20-2023 ambulatory T[employer]GLED YARN WORKER-C Nataly E Spasic Work Phone: [facility] Work Phone: Start: 10-20-2023 End: 10-20-2023 Patient encounter procedure TANGLED YARN WORKER-C Nataly Spasic Work Phone: [facility] Work Phone: Start: 10-07-2023 End: 10-07-2023 Patient encounter procedure TANGLED YARN WORKER-C Nataly Spasic Work Phone: [facility] [place] Work Phone: Start: 10-07-2023 End: 10-07-2023 ambulatory TANGLED YARN WORKER-C Nataly E Spasic Work Phone: [facility] Work Phone: Start: 10-04-2023 End: 10-05-2023 Emergency department patient visit TANGLED YARN WORKER-C Nataly Spasic Work Phone: [facility]Emer[facility] Work Phone: Start: 09-30-2023 End: 09-30-2023 ambulatory TANGLED YARN WORKER-C Nataly E Spasic Work Phone: [facility] Work Phone: Start: 09-30-2023 End: 09-30-2023 Departed Referred T[employer]GLED YARN WORKER-C Nataly Spasic Work Phone: [facility] [place] Work Phone: Start: 09-26-2023 End: 09-27-2023 Emergency department patient visit TANGLED YARN WORKER-C Nataly Spasic Work Phone: [facility] Work Phone: Start: 08-20-2023 End: 08-21-2023 Emergency department patient visit TANGLED YARN WORKER-C Nataly Spasic Work Phone: [facility] Work Phone: Start: 08-03-2023 End: 08-03-2023 ambulatory Nataly E Spasic [facility] Work Phone: Start: 08-03-2023 End: 08-03-2023 Departed Referred TANGLED YARN WORKER-C Nataly Spasic Work Phone: [facility] Start: 05-27-2023 End: 05-27-2023 ambulatory RADHA E RINKES Not Available Start: 05-25-2023 End: 05-25-2023 ambulatory EDE OLVERA Not Available Start: 05-05-2023 End: 05-05-2023 ambulatory RADHA E RINKES Not Available Start: 04-15-2023 End: 04-15-2023 ambulatory Nataly E Spasic Facility:[facility] Start: 03-17-2023 End: 03-17-2023 Patient encounter procedure PHYSICIAN NO FAMILY [facility] [place] Work Phone: Start: 03-17-2023 End: 03-17-2023 ambulatory PHYSICIAN NO [facility] Work Phone: Start: 03-04-2023 End: 03-04-2023 ambulatory PHYSICIAN NO [facility] Work Phone: Start: 03-04-2023 End: 03-04-2023 Departed Referred PHYSICIAN NO [facility] Start: 02-19-2023 End: 02-19-2023 ambulatory RADHA E RINKES Not Available Start: 02-13-2023 End: 02-13-2023 Evaluation and management of inpatient T[employer]ED YARN WORKER-C Nataly Spasic Work Phone: [facility] [place] Work Phone: Start: 02-02-2023 End: 02-02-2023 ambulatory RADHA E RINKES Not Available Start: 02-01-2023 End: 02-01-2023 Patient encounter procedure TANGLED YARN WORKER-C Nataly Spasic Work Phone: [facility] - O/P Start: 02-01-2023 End: 02-01-2023 ambulatory TANGLED YARN WORKER-C Nataly E Spasic Work Phone: [facility] Work Phone: Start: 01-30-2023 End: 01-31-2023 Patient encounter procedure TANGLED YARN WORKER-C Nataly Spasic Work Phone: [facility] Labor - O/P Start: 01-30-2023 End: 01-31-2023 ambulatory TANGLED YARN WORKER-C Nataly E Spasic Work Phone: [facility] Work Phone: Start: 01-26-2023 End: 01-26-2023 ambulatory RADHA E RINKES Not Available Start: 01-22-2023 End: 01-22-2023 Patient encounter procedure TANGLED YARN WORKER-C Nataly Spasic Work Phone: [facility] Labor - O/P Start: 01-22-2023 End: 01-22-2023 ambulatory TANGLED YARN WORKER-C Nataly E Spasic Work Phone: [facility] Work Phone: Start: 01-21-2023 End: 01-21-2023 ambulatory RADHA E RINKES Not Available Start: 01-21-2023 End: 01-21-2023 Patient encounter procedure TANGLED YARN WORKER-C Nataly Spasic Work Phone: [facility] [place] Labor - O/P Start: 01-21-2023 End: 01-21-2023 ambulatory TANGLED YARN WORKER-C Nataly E Spasic Work Phone: [facility] Work Phone: Start: 01-13-2023 End: 01-13-2023 ambulatory RADHA E RINKES Not Available Start: 01-05-2023 End: 01-05-2023 ambulatory RADHA E RINKES Not Available Start: 01-05-2023 End: 01-05-2023 ambulatory TANGLED YARN WORKER-C Nataly E Spasic Work Phone: [facility] Work Phone: Start: 01-05-2023 End: 01-05-2023 Departed Referred TANGLED YARN WORKER-C Nataly Spasic Work Phone: [facility] [place] Work Phone: Start: 01-01-2023 End: 01-01-2023 ambulatory RADHA E RINKES Not Available Start: 12-22-2022 End: 12-22-2022 Patient encounter procedure TANGLED YARN WORKER-C Nataly Spasic Work Phone: [facility] [place] Work Phone: Start: 12-22-2022 End: 12-22-2022 ambulatory TANGLED YARN WORKER-C Nataly E Spasic Work Phone: [facility] Work Phone: Start: 12-08-2022 End: 12-08-2022 ambulatory TANGLED YARN WORKER-C Nataly E Spasic Work Phone: [facility] Work Phone: Start: 12-08-2022 End: 12-08-2022 Departed Referred TANGLED YARN WORKER-C Nataly Spasic Work Phone: [facility] [place] Work Phone: Start: 12-03-2022 End: 12-03-2022 ambulatory TANGLED YARN WORKER-C Nataly E Spasic Work Phone: [facility] Work Phone: Start: 12-03-2022 End: 12-03-2022 Departed Referred TANGLED YARN WORKER-C Nataly Spasic Work Phone: [facility] Start: 12-01-2022 End: 12-01-2022 Emergency department patient visit TANGLED YARN WORKER-C Nataly Spasic Work Phone: [facility]Emer[facility] Work Phone: Start: 11-21-2022 End: 11-21-2022 ambulatory TANGLED YARN WORKER-C Nataly E Spasic Work Phone: [facility] Work Phone: Start: 11-21-2022 End: 11-21-2022 Patient encounter procedure TANGLED YARN WORKER-C Nataly Spasic Work Phone: [facility] Labor - O/P Start: 11-20-2022 End: 11-20-2022 ambulatory TANGLED YARN WORKER-C Nataly E Spasic Work Phone: [facility] Work Phone: Start: 11-20-2022 End: 11-20-2022 Patient encounter procedure TANGLED YARN WORKER-C Nataly Spasic Work Phone: [facility] Labor - O/P Start: 11-19-2022 End: 11-19-2022 ambulatory TANGLED YARN WORKER-C Nataly E Spasic Work Phone: [facility] Work Phone: Start: 11-19-2022 End: 11-19-2022 Patient encounter procedure TANGLED YARN WORKER-C Nataly Spasic Work Phone: [facility]3 [place] Labor - O/P Start: 07-13-2022 End: 07-14-2022 ambulatory YNES HARDEN . Facility:[facility]1 Start: 06-23-2022 End: 06-23-2022 ambulatory TANGLED YARN WORKER-C Nataly E Spasic Work Phone: [facility] Work Phone: Start: 06-23-2022 End: 06-23-2022 Patient encounter procedure TANGLED YARN WORKER-C Nataly Spasic Work Phone: [facility]-Pre-Surgical Testing Work Phone: Start: 06-16-2022 End: 06-16-2022 Departed Referred TANGLED YARN WORKER-C Nataly Spasic Work Phone: [place] Start: 06-04-2022 End: 06-04-2022 ambulatory TANGLED YARN WORKER-C Nataly E Spasic Work Phone: [facility] Work Phone: Start: 06-04-2022 End: 06-04-2022 Patient encounter procedure TANGLED YARN WORKER-C Nataly Spasic Work Phone: [facility]-Ultrasound [facility] [place] Work Phone: Start: 06-03-2022 End: 06-03-[address] SHARMILA BAIG . Facility:[facility] Start: 05-28-2022 End: 05-28-2022 ambulatory TANGLED YARN WORKER-C Nataly Spasic Work Phone: [facility] Work Phone: Start: 05-28-2022 End: 05-28-2022 Departed Referred TANGLED YARN WORKER-C Nataly Spasic Work Phone: [place] Start: 03-15-2022 End: 03-16-2022 ambulatory CORRINA MADHURI Facility:[facility]1 Start: 10-18-2021 End: 10-18-2021 Evaluation and management of inpatient DO Obdulia Oneil Work Phone: [facility] Labor and Delivery Start: 10-16-2021 End: 10-16-2021 Departed Referred DO Obdulia Oneil Work Phone: [facility]-Lab [facility] [place] Start: 08-31-2021 End: 08-31-[address] LILIANE KOVACS . Facility: Start: 08-08-2021 End: 08-08-2021 ambulatory CORRINA DHALIWAL Facility:[facility] Start: 07-21-2021 End: 07-21-2021 Patient encounter procedure DO Obdulia Oneil Work Phone: [facility]-Lab [facility] [place] Start: 08-03-2018 End: 08-04-2018 Patient encounter procedure SHARLA HICKS Facility:[facility] Procedures Date Procedure Procedure Detail Performing Clinician Start: 10-07-2023 Diagnostic radiograp hy of abdomen TANGLED YARN WORKER-C Nataly Spasic Work Phone: Start: 10-07-2023 Ultrasonography of liver TANGLED YARN WORKER-C Nataly Spasic Work Phone: Start: 10-07-2023 US scan of thyroid TANGLED YARN WORKER-C Nataly Spasic Work Phone: Start: 09-26-2023 CT of lumbar spine w ithout contrast TANGLED YARN WORKER-C Nataly Spasic Work Phone: Start: 09-26-2023 Urine culture TANGLED YARN WORKER-C Andrez a Spasic Work Phone: Start: 02-13-2023 Urine culture PHYSICIAN NO FAMILY Start: 02-01-2023 Urine culture TANGLED YARN WORKER-C Andrez a Spasic Work Phone: Start: 01-05-2023 Streptococcus agalac tiae culture TANGLED YARN WORKER-C Nataly Spasic Work Phone: Start: 12-01-2022 Plain chest X-ray TANGLED YARN WORKER-C Nataly Spasic Work Phone: Start: 12-01-2022 Respiratory Panel (PCR) TANGLED YARN WORKER-C Nataly Tejal Work Phone: Start: 11-20-2022 Ultrasound scan - obstetric TANGLED YARN WORKER-C Nataly Tejal Work Phone: Start: 06-04-2022 US scan of gallbladder TANGLED YARN WORKER-C Nataly Tejal Work Phone: Start: 08-03-2018 Anes integ extremiti es ant trunk & perineum nos AREN Romaine PITT Start: 08-03-2018 Repair nail bed SHARLA Brian CLARK SARS Antigen (LFIA) DO Luis Enrique Oneil Work Phone: Streptococcus agalac tiae culture DO Obdulia Oneil Work Phone: Plan of Treatment Date Care Activity Detail Author Start: 09-26-2023 CT Lumbar spine WO contrast [facility] Start: 09-26-2023 CT of lumbar spine without contrast CT lumbar spine wo con [facility] Start: 09-26-2023 Bacteria identified in Urine by Culture [facility] Start: 08-20-2023 [facility] Start: 02-14-2023 [facility] Start: 02-13-2023 End: 02-13-2023 [facility] Start: 02-13-2023 Bacteria identified in Urine by Culture [facility] Start: 02-13-2023 Delivery of Products of Conception, External Approach Delivery of Products of Conception, External Approach [facility] Start: 02-13-2023 Drainage of Amniotic Fluid, Therapeutic from Products of Conception, Via Natural or Artificial Opening Drainage of Amniotic Fluid, Therapeutic from Products of Conception, Via Natural or Artificial Opening [facility] Start: 02-13-2023 Hospital admission [facility] Start: 02-13-2023 Hospital admission [facility] Start: 02-13-2023 End: 02-13-2023 [facility] Start: 02-01-2023 [facility] Start: 02-01-2023 Hospital admission [facility] Start: 02-01-2023 Bacteria identified in Urine by Culture [facility] Start: 01-31-2023 [facility] Start: 01-30-2023 Hospital admission [facility] Start: 01-22-2023 [facility] Start: 01-21-2023 [facility] Start: 01-05-2023 Group B Streptococcus Culture Group B Streptococcus Culture [facility] Start: 12-01-2022 Respiratory Panel (PCR) Respiratory Panel (PCR) [facility] Start: 11-21-2022 [facility] Start: 11-20-2022 [facility] Start: 11-20-2022 Hospital admission [facility] Start: 11-19-2022 [facility] Start: 11-19-2022 Hospital admission [facility] Start: 11-19-2022 [facility] Start: 10-18-2021 End: 10-18-2021 [facility] Work Phone: Start: 10-18-2021 Hospital admission [facility] Work Phone: Bacteria identified in Urine by Culture [facility] Glucose measurement estimated from glycated hemoglobin [facility] Hemoglobin A1c/Hemoglobin.total in Blood [facility] Insulin [Units/volum e] in Serum or Plasma [facility] Insulin [Units/volum e] in Serum or Plasma [facility] Insulin [Units/volum e] in Serum or Plasma [facility] Patient Education [facility] Work Phone: Patient referral [facility] Work Phone: Reagin Ab [Presence] in Serum by RPR [facility] Work Phone: [facility] Res[facility] pathogen s DNA and RNA panel - Nasopharynx by SVETLANA with non-probe detection [facility] Streptococcus agalac tiae [Presence] in Unspecified specimen by Organism specific culture [facility] Thyroperoxidase Ab [Units/volume] in Serum or Plasma [facility] Thyrotropin [Units/v olume] in Serum or Plasma [facility] Thyroxine (T4) free index in Serum or Plasma by calculation [facility] Thyroxine measurement [facility] Triiodothyronine (T3 ) [Mass/volume] in Serum or Plasma [facility] Triiodothyronine res in uptake (T3RU) in Serum or Plasma [facility] Immunizations Immunization Date Immunization Notes Care Provider Arcadio carcamodawn 02-13-2023 tetanus toxoid, reduced diphtheria toxoid, and acellular pertussis vaccine, adsorbed TANGLED YARN WORKER-C Nataly Toure Work Phone: [facility] 01-10-2021 influenza, injectabl e, quadrivalent, preservative free DO Obdulialeigh Oneil Work Phone: [facility] NEGATED: Highlighted row has not occurred!01-10-2021 tetanus toxoid, reduced diphtheria toxoid, and acellular pertussis vaccine, adsorbed DO Obdulia Oneil Work Phone: [facility] Payers Date Payer Category Payer Self-pay [id number] 1999 Unknown [id number] 2.16.840.1.310481.3.579.2.647 1999 Unknown [id number] 2.16.840.1.651505.3.579.2.593 1999 Unknown [id number] 2.16.840.1.429255.3.579.2.593 1999 Unknown [id number] 2.16.840.1.582557.3.579.2.593 1999 Unknown [id number] 2.16.840.1.516086.3.579.2.593 1999 Unknown [id number] 2.16.840.1.519838.3.579.2.593 1999 Unknown [id number] 2.16.840.1.856223.3.579.2.1259 1999 Unknown [id number] 2.16.840.1.646232.3.579.2.9 1999 Unknown [id number] 2.16.840.1.226636.3.579.2.9 1999 Unknown [id number] 2.16.840.1.261930.3.579.2.9 1999 Unknown [id number] 2.16.840.1.802386.3.579.2.1258 1999 Unknown [id number] 2.16.840.1.359924.3.579.2.1258 1999 Unknown [id number] 2.16.840.1.669632.3.579.2.1258 1999 Unknown [id number] 2.16.840.1.286414.3.579.2.1258 1999 Unknown [id number] 2.16.840.1.955951.3.579.2.1258 1999 Unknown [id number] 2.16.840.1.797241.3.579.2.1258 1999 Unknown [id number] 2.16.840.1.755427.3.579.2.9 1959 Private Health Insurance [id number] 1959 Unknown [id number] Unknown [place] / [id number] Unknown [id number] 2.16.840.1.508933.3.579.2.531 Unknown [id number] 2.16.840.1.398642.3.579.2.531 Unknown [id number] 2.16.840.1.287544.3.579.2.531 Unknown [id number] 2.16.840.1.257093.3.579.2.531 Unknown [id number] 2.16.840.1.212344.3.579.2.531 Unknown [id number] 2.16.840.1.400148.3.579.2.531 Unknown [id number] 2.16.840.1.866380.3.579.2.531 Unknown [id number] 2.16.840.1.605922.3.579.2.531 Unknown [id number] 2.16.840.1.545520.3.579.2.531 Unknown [id number] 2.16.840.1.938645.3.579.2.531 Unknown [id number] 2.16.840.1.414700.3.579.2.531 Unknown [id number] 2.16.840.1.976464.3.579.2.531 Unknown [id number] 2.16.840.1.406373.3.579.2.531 Unknown [id number] 2.16.840.1.152334.3.579.2.531 Unknown [id number] 2.16.840.1.343734.3.579.2.531 Unknown [id number] 2.16.840.1.859056.3.579.2.531 Unknown [id number] 2.16.840.1.814845.3.579.2.531 Social History Date Type Detail Facility Start: 10-18-2021 End: 10-04-2023 Tobacco smoking status NHIS Never smoked tobacco (finding) [facility] Start: 2000 Sex Assigned At Female [facility] NEGATED: Highlighted row Fir [facility] Goals Date Patient Goal Desired Activity /State Functional Status Date Assessment Result Facility 02-13-2023 Functional status Patient Not at Baseline [facility] Work Phone: Mental Status Date Assessment Result Facility 02-13-2023 Cognitive function Cognitive Sta tus Patient Not at Baseline [facility] Work Phone: Procedure note 02-13-2023 Note Date & Type Note Facility 02-13-2023 Procedure note [facility] History and physical note 10-18-2021 Note Date & Type Note Facility 10-18-2021 History and physical note Note Date/Time October 18, 2021 1:40am [facility] [address] [place] [address] 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 Hx : 5 : 4 Livin EDC by Ultrasound: 12/09/21 Significant Findings: premature delivery x4 AP Rubela NI conceived on Nexplanon Significant Family History: pgf aodm,cancer mgf,mgm htn mother aodm mgf DVT,mgmcolon/breast cancer Social History Tobacco Use: n Alcohol Use: n Drug Use: n Substance Abuse Comment: n Social History Comments: Lives with and children Allergies & Medications Medications and Allergies Allergies No Known Allergies Allergy (Verified 10/18/21 01:31) Home Medications docusate sodium 100 mg capsule (DOK) 100 mg PO HS #30 caps 01/09/21 [Rx] ibuprofen 600 mg tablet 600 mg PO Q6H PRN Pain #60 tabs 01/09/21 [Rx] Active Medications Carboprost Tromethamine (Carboprost Tromethamine 250 Mcg/Ml Vial) 250 mcg IM PRN PRN PRN Reason: Bleeding Stop: 10/19/21 00:45 Lactated Ringer's (Lactated Ringers) 1,000 mls @ 999 mls/hr IV .Q1H1M ONE Stop: 10/18/21 01:46 Last Admin: 10/18/21 00:58 Dose: 999 mls/hr Lactated Ringer's (Lactated Ringers) 1,000 mls @ 150 mls/hr IV .Q6H40M KERWIN Stop: 10/18/22 00:59 Lidocaine HCl (Lidocaine 1% 50 Ml Vial) 0 ml INFILTRATN PRN PRN PRN Reason: Local Anesthetics Stop: 10/19/21 00:45 Methylergonovine Maleate (Methylergonovine Maleate 0.2 Mg/Ml Ampul) 0.2 mg IM PRN PRN PRN Reason: Bleeding Stop: 10/19/21 00:45 Last Admin: 10/18/21 01:08 Dose: 0.2 mg Nalbuphine HCl (Nalbuphine 10 Mg/Ml Ampul) 5 mg IV-PUSH Q3H PRN PRN Reason: Pain Scale 1 - 3 Stop: 10/18/22 00:45 Nalbuphine HCl (Nalbuphine 10 Mg/Ml Ampul) 10 mg IV-PUSH Q3H PRN PRN Reason: Pain Scale 4 - 7 Stop: 10/18/22 00:45 Sodium Chloride (Sodium Chloride 0.9 % 10 Ml Syringe) 0 ml IV-PUSH PRN PRN PRN Reason: Flush Stop: 10/18/22 00:45 OB - Physical Exam Constitutional Constitutional: no acute distress HEENT Exam Head: Present normocephalic Neck Exam Neck: Present supple Respiratory Exam Comments: good effort Abdominal Exam Abdominal: Present soft Detailed Labor and Delivery Exam Dilatation (cm): 10 cm Effacement (%): 100% Cervix: Anterior Station: Plus 3 Membrane Status: Bulging Heart Rate Baseline (Fetus A): 145 Contraction Pattern: Regular Extremities Exam Extremities: Absent edema Skin Exam Skin: Present intact Neurological Exam Neurological: Present alert and oriented X3 Psychiatric Exam Psychiatric: Present normal affect OB Results Laboratory Results - Last 48 hrs. 10/18/21 00:55: Corrected WBC 10.1, Uncorrected WBC Count 10.1, RBC 4.38, Hgb 11.3 L, Hct 34.9, MCV 79.6 L, MCH 25.9, MCHC 32.5, RDW 15.6 H, Plt Count 190, MPV 9.7, Neut % (Auto) 73.3, Lymph % (Auto) 17.0, [place] % (Auto) 8.1, Eos % (Auto) 1.3, Baso % (Auto) 0.3, Neut # (Auto) 7.4, Lymph # (Auto) 1.7, [place] # (Auto) 0.8, Eos # (Auto) 0.1, Baso # (Auto) 0.0, Nucleated RBC % (auto) 0.1 10/18/21 00:27: Urine Color Yellow, Urine Appearance Cloudy A, Urine pH 6.5, Ur Specific [place] 1.020, Urine Protein Trace H, Urine Glucose (UA) Normal, Urine Ketones Trace H, Urine Occult Blood Negative, Urine Nitrite Negative, Urine Bilirubin Negative, Urine Urobilinogen Normal, Ur Leukocyte Esterase 3+ H, Urine RBC 1-2, Urine WBC 20-49 H, Ur Squamous Epith Cells 5-9 H, Urine Bacteria 1+ H, Hyaline Casts 9-19 H Microbiology - Last 72 hours 10/18/21 00:27 Urine - ##Change## Urine Culture - Pending Assessment/Plan (1) 33 weeks gestation of : Plan: Pt with advanced dilation with imminent delivery Baby is vtx by bedside ultrasound. Code(s): Z3A.33 - 33 weeks gestation of Status: Acute Plan Anticipate Documented By: TELMA Velez 10/18/2103 14 Signed By: <Electronically signed by TELMA Smith> 10/18/21 0141 [facility] Work Phone: Procedure note 10-18-2021 Note Date & Type Note Facility 10-18-2021 Procedure note [facility] Evaluation note Note Date & Type Note Facility Evaluation note Diagnosis Onset Date 33 weeks gestation of [facility] Work Phone: Evaluation note Note Date & Type Note Facility Evaluation note No assessment information availa [facility] Work Phone: Evaluation note Note Date & Type Note Facility Evaluation note Diagnosis Onset Date 35 weeks gestation of [facility] Work Phone: Evaluation note Note Date & Type Note Facility Evaluation note Diagnosis Onset Date Iron deficiency anemia [place] Work Phone: Hospital Discharge instructions Note Date & Type Note Facility Hospital Discharge instructions Additional Instructions You have a respiratory panel is pending you will be called with any positive results Push fluids Humidifier may be beneficial Tylenol only for your discomfort Follow-up with your PCP and your TECHNICAL SOURCING RECRUITER call tomorrow for appointment Salt water gargles to soothe your throat Handwashing Rest Return here if any problems persist or worsen including abdominal pain, vaginal bleeding, increased pain, dyspnea or any other concerns [facility] Work Phone: Summary Purpose Family History No Family History Records Found Relationship Condition Age at Onset Recorded Date/T collins Not Specified Malignant neoplasm of ovary Unknown father Diabetes mellitus Unknown Hypertension Unknown Relationship Condition Age at Onset Recorded Date/T collins mother Malignant neoplasm of ovary Unknown father Diabetes mellitus Unknown Hypertension Unknown Advance Directives No Advanced Directives Records Found Advance Directive Response Recorded Date/ Time Advance Directives No December 2:29pm Advance Directive Response Recorded Date/ Time Advance Directives No December 1:29pm Chief Complaint and Reason for Visit Chief Complaint Z32.01 Z3A.32 Z36.85 contractions. 32 weeks iup Reason for Visit 33 weeks gestation o f Chief Complaint Hypothyroidism, unsp ecified type Obesity, unspecif Chief Complaint Hypothyroidism, unsp ecified type Obesity, unspecif k82.0 Chief Complaint Hypothyroidism, unsp ecified type Obesity, unspecif k82.0 High blood triglycerides E78.1 Cholelithiasis Chief Complaint 23 wks cramping Chief Complaint 23 wks cramping 23 Wks mucus cramping Chief Complaint 23 wks cramping 23 Wks mucus cramping shot Chief Complaint 23 wks cramping 23 Wks mucus cramping shot CHEST PAIN Chief Complaint 23 wks cramping 23 Wks mucus cramping shot CHEST PAIN Hypothyroidism, unspecified type Hypothyroidism, u Chief Complaint 23 wks cramping 23 Wks mucus cramping shot CHEST PAIN R00.00 E03.9 E61.1 Chief Complaint 23 wks cramping 23 Wks mucus cramping shot CHEST PAIN R00.00 E03.9 E61.1 z3a.26 o09.899 r87.89 z3a.27 o99.810 3 hr Chief Complaint 23 wks cramping 23 Wks mucus cramping shot CHEST PAIN R00.00 E03.9 E61.1 z3a.26 o09.899 r87.89 z3a.27 o99.810 3 hr Z36.85 IUP (Intrauterine ) Chief Complaint 23 wks cramping 23 Wks mucus cramping shot CHEST PAIN R00.00 E03.9 E61.1 z3a.26 o09.899 r87.89 z3a.27 o99.810 3 hr Z36.85 IUP (Intrauterine ) IUP (Intrauterine ) Chief Complaint 23 wks cramping 23 Wks mucus cramping shot CHEST PAIN R00.00 E03.9 E61.1 z3a.26 o09.899 r87.89 z3a.27 o99.810 3 hr Z36.85 IUP (Intrauterine ) IUP (Intrauterine ) 342.5 WKS HAVING CONTRACTIONS Chief Complaint 23 wks cramping 23 Wks mucus cramping shot CHEST PAIN R00.00 E03.9 E61.1 z3a.26 o09.899 r87.89 z3a.27 o99.810 3 hr Z36.85 IUP (Intrauterine ) IUP (Intrauterine ) 342.5 WKS HAVING CONTRACTIONS contractions, 33wks iup Chief Complaint 23 wks cramping 23 Wks mucus cramping shot CHEST PAIN R00.00 E03.9 E61.1 z3a.26 o09.899 r87.89 z3a.27 o99.810 3 hr Z36.85 IUP (Intrauterine ) IUP (Intrauterine ) 342.5 WKS HAVING CONTRACTIONS contractions, 33wks iup IUP (Intrauterine ) Reason for Visit 35 weeks gestation o f Chief Complaint z3a.26 o09.899 r87.8 9 z3a.27 o99.810 3 hr Z36.85 IUP (Intrauterine ) IUP (Intrauterine ) 342.5 WKS HAVING CONTRACTIONS contractions, 33wks iup IUP (Intrauterine ) High blood triglycerides Hypothyroidism, unspecifi Reason for Visit 35 weeks gestation o f Chief Complaint z3a.27 o99.810 3 hr Z36.85 IUP (Intrauterine ) IUP (Intrauterine ) 342.5 WKS HAVING CONTRACTIONS contractions, 33wks iup IUP (Intrauterine ) E66.9 E78.1 E61.1 E03.9 z68.35 Reason for Visit 35 weeks gestation o f Chief Complaint High blood triglycer ides Hypothyroidism, unspecifi Chief Complaint High blood triglycer ides Hypothyroidism, E61.1 bleeding; clotting, cramping Chief Complaint High blood triglycer ides Hypothyroidism, E61.1 bleeding; clotting, cramping Back/Urinary Pain x 2 years Chief Complaint High blood triglycer ides Hypothyroidism, E61.1 bleeding; clotting, cramping Back/Urinary Pain x 2 years E61.1;R59.1;E03.9;R06.02 blood in urine Chief Complaint High blood triglycer ides Hypothyroidism, E61.1 bleeding; clotting, cramping Back/Urinary Pain x 2 years E61.1;R59.1;E03.9;R06.02 blood in urine E03.9 Chief Complaint High blood triglycer ides Hypothyroidism, E61.1 bleeding; clotting, cramping Back/Urinary Pain x 2 years E61.1;R59.1;E03.9;R06.02 blood in urine E03.9 [place] Iron Deficiency Anemia Reason for Visit Iron deficiency anem ia Additional Source Comments INFORMATION SOURCE (unrecogn ized section and content) DATE CREATED AUTHOR 10/16/2018 [facility] DATE CREATED AUTHOR AUTHOR'S ORGANIZ ATION 07/24/2022 [facility] DATE CREATED AUTHOR AUTHOR'S ORGANIZ ATION 05/29/2023 [facility] EPIC DATE CREATED AUTHOR AUTHOR'S ORGANIZ ATION 12/16/2023 [facility] DATE CREATED AUTHOR AUTHOR'S ORGANIZ ATION 12/17/2023 [facility] Care Teams (unrecognized sec tion and content) Team Status: Inactive Member Role Status Dates Obdulia Oneil DO Primary Care Provider Active Jennie Smith MD Admit Provider, Attending Provider Active Team Status: Inactive Member Role Status Dates Obdulia Oneil DO Primary Care Provider Active Radha Molina DO Attending Provider Active Team Status: Active Member Role Status Dates Obdulia Oneil DO Primary Care Provider Active Team Status: Inactive Member Role Status Dates RONDA Reyes Attending Provider Active Team Status: Active Member Role Status Dates RONDA Reyes Primary Care Provider Active Team Status: Inactive Member Role Status Dates Nataly E Spasic , TANGLED YARN WORKER-C Primary Care Provider, Attending Provider Active Team Status: Inactive Member Role Status Dates Nataly E Shayleesic , TANGLED YARN WORKER-C Primary Care Provider Active Marcello Hudson DO Attending Provider Active Team Status: Inactive Member Role Status Dates Nataly E Shayleesic , TANGLED YARN WORKER-C Primary Care Provider Active Mary Kay Cantu DO Attending Provider Active Team Status: Inactive Member Role Status Dates Nataly E Spasic , TANGLED YARN WORKER-C Primary Care Provider Active Jennie Smith MD Attending Provider Active Team Status: Inactive Member Role Status Dates Nataly E Shayleesic , TANGLED YARN WORKER-C Primary Care Provider Active Staci Ortiz , CADE Emergency Provider Active Team Status: Inactive Member Role Status Dates Nataly E Shayleesic , TANGLED YARN WORKER-C Attending Provider Active Services [facility] Primary Care Provider Ac tive Team Status: Inactive Member Role Status Dates Radha Molina DO Attending Provider Active Team Status: Active Member Role Status Dates PHYSICIAN NO FAMILY Primary Care Provider Active Team Status: Inactive Member Role Status Dates Radha Molina DO Attending Provider Active PHYSICIAN NO FAMILY Primary Care Provider Active Team Status: Inactive Member Role Status Dates Nataly Brian Junesic , TANGLED YARN WORKER-C Primary Care Provider Active Radha Molina DO Attending Provider Active Team Status: Inactive Member Role Status Dates Nataly Brian Toure , TANGLED YARN WORKER-C Primary Care Provider Active Ede Olvera MD Admit Provider, Attending Provider A ctive Team Status: Inactive Member Role Status Dates Radha Molina DO Attending Provider Active S tart: December 08, 2022 End: December 08, 2022 Team Status: Inactive Member Role Status Dates Radha Molina DO Attending Provider Active S tart: December 22, 2022 End: December 22, 2022 PHYSICIAN NO FAMILY Primary Care Provider Active Start: December 22, 2022 End: December 22, 2022 Team Status: Inactive Member Role Status Dates Radha Molina DO Attending Provider Active S tart: January 05, 2023 End: January 05, 2023 Team Status: Inactive Member Role Status Dates Nataly Brian Junesic , TANGLED YARN WORKER-C Primary Care Provider Active Start: January 21, 2023 End: January 21, 2023 Radha Molina DO Attending Provider Active S tart: January 21, 2023 End: January 21, 2023 Team Status: Inactive Member Role Status Dates Nataly Brian Junesic , TANGLED YARN WORKER-C Primary Care Provider Active Start: January 22, 2023 End: January 22, 2023 Radha Molina DO Attending Provider Active S tart: January 22, 2023 End: January 22, 2023 Team Status: Inactive Member Role Status Dates Nataly Toure , [employer]-C Primary Care Provider Active Start: January 30, 2023 End: January 31, 2023 Mary Kay Cantu DO Attending Provider Active Start: January 30, 2023 End: January 31, 2023 Team Status: Inactive Member Role Status Dates Nataly Brian Toure , [employer]-C Primary Care Provider Active Start: February 01, 2023 End: February 01, 2023 Radha Molina DO Attending Provider Active S tart: February 01, 2023 End: February 01, 2023 Team Status: Inactive Member Role Status Dates Nataly Toure , [employer]C Primary Care Provider Active Start: February 13, 2023 End: February 13, 2023 Ede Olvera MD Admit Provider, Attbrian nding Provider Active Start: February 13, 2023 End: February 13, 2023 Team Status: Inactive Member Role Status Dates Nataly Toure , [employer]C Attending Provider Active Start: March 04, 2023 End: March 04, 2023 Team Status: Active Member Role Status Dates Services [facility] Primary Care Provider Ac tive Team Status: Inactive Member Role Status Dates Nataly Toure , [employer]C Attending Provider Active Start: March 17, 2023 End: March 17, 2023 [facility] Primary Care Provider Ac tive Start: March 17, 2023 End: March 17, 2023 Team Status: Inactive Member Role Status Dates Nataly Toure , [employer]-C Attending Provider Active Start: August 03, 2023 End: August 03, 2023 Team Status: Inactive Member Role Status Dates Nataly Toure , [employer] WORK[employer]C Primary Care Provider Active Start: August 20, 2023 End: August 21, 2023 Carmelo Vinson DO Emergency Provider Active St art: August 20, 2023 End: August 21, 2023 Team Status: Inactive Member Role Status Dates Nataly Toure , [employer]C Primary Care Provider Active Start: September 26, 2023 End: September 27, 2023 Devon Leon PA-C Emergency Provider Active Start: September 26, 2023 End: September 27, 2023 Team Status: Inactive Member Role Status Dates Nataly Toure , [employer]C Primary Care Provi emmanuel, Attending Provider Active Start: September 30, 2023 End: September 30, 2023 Team Status: Inactive Member Role Status Dates Nataly Brian Jerniganc , [employer]-C Primary Care Provider Active Start: October 04, 2023 End: October 05, 2023 Carmelo Vinson DO Emergency Provider Active St art: October 04, 2023 End: October 05, 2023 Team Status: Inactive Member Role Status Dates Nataly Jerniganc , [employer] WORK[employer]-C Primary Care Provi emmanuel, Attending Provider Active Start: October 07, 2023 End: October 07, 2023 Team Status: Inactive Member Role Status Dates Nataly Jerniganc , [employer] WORK[employer]-C Primary Care Provi emmanuel, Referring Provider Active Start: October 20, 2023 End: October 20, 2023 Melania Arceo APRN Attending Provider Active Start: October End: October 20, 2023 Team Status: Active Member Role Status Dates Nataly Toure , [employer] WORK[employer]C Primary Care Provi emmanuel, Referring Provider Active Start: October 20, 2023 Melania Arceo APRN Attending Provider Active Start: October Goals (unrecognized section and content) Goals may be documented in a n alternate sectionGoals may be documented in an alternate sectionGoals may be documented in an alternate sectionGoals may be documented in an alternate sectionGoals may be documented in an alternate sectionGoals may be documented in an alternate sectionGoals may be documented in an alternate sectionGoals may be documented in an alternate sectionGoals may be documented in an alternate sectionGoals may be documented in an alternate sectionGoals may be documented in an alternate sectionGoals may be documented in an alternate sectionGoals may be documented in an alternate sectionGoals may be documented in an alternate sectionGoals may be documented in an alternate sectionGoals may be documented in an alternate sectionGoals may be documented in an alternate sectionGoals may be documented in an alternate sectionGoals may be documented in an alternate sectionGoals may be documented in an alternate sectionGoals may be documented in an alternate sectionGoals may be documented in an alternate sectionGoals may be documented in an alternate section FOR RECORDS PERTAINING TO PATIENTS WHO ARE OR HAVE BEEN ENROLLED IN A CHEMICAL DEPENDENCY/SUBSTANCEABUSE PROGRAM, SOME INFORMATION MAY BE OMITTED. This clinical summary was aggregated from multiple sources. Caution should be exercised in using it in the provision of clinical care. This summary normalizes information from multiple sources, and as a consequence, information in this document may materially change the coding, format and clinical context of patient data. In addition, data may be omitted in some cases. CLINICAL DECISIONS SHOULD BE BASED ON THE PRIMARY CLINICAL RECORDS. [email or web address]. provides no warranty or guarantee of the accuracy or completeness of information in this document.
== END 2024-01-06 09:49 | disposition home or self-care (01) ==
LOC: US 09:48
PROVIDERS: PCP Family Medicine; Visit Provider Obstetrics & Gynecology
DX: O20.9 Hemorrhage in early pregnancy, unspecified (principal); Z3A.01 Less than 8 weeks gestation of pregnancy; N92.6 Irregular menstruation, unspecified
CPT/HCPCS: 76817

== ENCOUNTER 2024-02-03 12:29 | Outpatient (OUT) | payer OTHER, SELFPAY ==
--- NOTE | 2024-02-03 12:31 | US_ITS ---
[address] [address] Patient Name: ROSETTE ALBA MRN: [id number] date: 2000 Sex: F Assigned Patient Location: [facility] Current Patient Location: [facility] Accession/Order Number: [id number] Exam Date: 02/03/2024 12:31 Report Date: 02/03/2024 13:13 At the request of: LILIANE KOVACS Procedure: US OB transvaginal EXAMINATION: US OB transvaginal HISTORY: MISSED MENSES COMPARISON: 01/06/2024 FINDINGS: Blanchard intrauterine gestation Gestational sac: 4.55 cm, 10 weeks 1 day CRL: 4.2 cm, 11 weeks 1 day Yolk sac: 4.2 mm Heart rate: 175 beats minute Cervix: Closed, 4.5 cm Clinical age: 10 weeks 4 days Clinical LYNDSAY: 08/27/2024 Ultrasound age: 11 weeks 1 day Ultrasound LYNDSAY: 08/23/2024 US/US OB transvaginal IMPRESSION: Viable blanchard intrauterine gestation measuring 11 weeks 1 day Electronically authenticated by: SUMEET SHEPPARD Date: 02/03/2024 13:13
== END 2024-02-03 12:30 | disposition home or self-care (01) ==
LOC: NOMS 12:29
PROVIDERS: PCP Family Medicine; Visit Provider Obstetrics & Gynecology
DX: Z34.91 Encounter for supervision of normal pregnancy, unspecified, first trimester (principal); Z3A.10 10 weeks gestation of pregnancy; N92.6 Irregular menstruation, unspecified
CPT/HCPCS: 76817

== ENCOUNTER 2024-02-25 14:09 | Outpatient (OUT) | payer OTHER, SELFPAY ==
[2024-02-25 14:38] LABS: BOX Test Sent Out UNITY
[2024-02-25 14:39] LABS: BOX Test Reference Lab UNITY
[2024-02-25 14:50] LABS: Basophils Percent Auto 0.1 % (0.2-2.0); Eosinophils Absolute Auto 0.1 10^3/uL (0.0-0.7); Eosinophils Percent Auto 0.8 % (0.9-7.0); Hematocrit 35.9 % (36.0-48.0); Hemoglobin 12.3 g/dL (12.0-16.0); Immature Granulocytes Abs Auto 0.04 10^3/uL (0.00-0.03); Immature Granulocytes Pct Auto 0.5 % (0.0-0.5); Lymphocytes Absolute Auto 1.7 10^3/uL (1.2-3.8); Lymphocytes Percent Auto 21.3 % (20.5-60.0); Mean Corpuscular HGB Conc 34.3 g/dL (29.9-35.2); Mean Corpuscular Volume 84.7 fL (81.0-99.0); Mean Platelet Volume 10.3 fL (9.5-13.5); Monocytes Absolute Auto 0.6 10^3/uL (0.3-0.8); Monocytes Percent Auto 7.4 % (1.7-12.0); Neutrophils Absolute Auto 5.5 10^3/uL (1.4-6.5); Neutrophils Percent Auto 69.9 % (43.0-75.0); Platelet Count 203 10^3/uL (150-450); Red Blood Count 4.24 10^6/uL (4.20-5.40); Red Cell Distribution Width 13.3 % (11.0-15.0); White Blood Count 7.9 10^3/uL (4.0-11.0)
[2024-02-25 15:01] LABS: Estimated Average Glucose 100 mg/dL; Glycohemoglobin A1C 5.1 % (4.5-6.2)
[2024-02-25 15:48] LABS: Thyroid Stimulating Hormone 1.606 uIU/mL (0.358-3.740)
[2024-02-25 17:10] LABS: Amphetamine Screen Urine NEGATIVE (NEGATIVE); Barbiturates Screen Urine NEGATIVE (NEGATIVE); Benzodiazepines Screen Urine NEGATIVE (NEGATIVE); Buprenorphine Screen Urine NEGATIVE (NEGATIVE); Cannabinoid Screen Urine NEGATIVE (NEGATIVE); Cocaine Screen Urine NEGATIVE (NEGATIVE); Methadone Screen Urine NEGATIVE (NEGATIVE); Methamphetamines Screen Urine NEGATIVE (NEGATIVE); Opiate Screen Urine NEGATIVE (NEGATIVE); Oxycodone Screen Urine NEGATIVE (NEGATIVE); Phencyclidine Screen Urine NEGATIVE (NEGATIVE); Tricyclic Antidepressant Urine NEGATIVE (NEGATIVE)
[2024-02-26 06:08] LABS: HCV Ab Non Reactive (Non Reactive)
[2024-02-26 07:07] LABS: HBsAg Screen Negative (Negative); HIV Ab/p24 Ag Screen Non Reactive (Non Reactive)
[2024-02-26 08:14] LABS: Rubella Antibodies, IgG <0.90 index (Immune >0.99)
[2024-02-26 13:07] LABS: Rapid Plasma Reagin, Quant Non Reactive titer (NonRea<1:1)
== END 2024-02-25 14:10 | disposition home or self-care (01) ==
LOC: LAB 14:09
PROVIDERS: PCP Family Medicine; Visit Provider Obstetrics & Gynecology
DX: Z34.01 Encounter for supervision of normal first pregnancy, first trimester (principal); Z36.0 Encounter for antenatal screening for chromosomal anomalies; N92.6 Irregular menstruation, unspecified
CPT/HCPCS: 36415; 80307; 83036; 84443; 85025; 86592; 86762; 86803; 86850; 86900; 86901; 87086; 87340; 87389

== ENCOUNTER 2024-03-14 09:29 | Outpatient (OUT) | payer OTHER, SELFPAY ==
--- NOTE | 2024-03-14 09:31 | US_ITS ---
[address] [address] Patient Name: ROSETTE ALBA MRN: [id number] date: 2000 Sex: F Assigned Patient Location: Current Patient Location: Accession/Order Number: [id number] Exam Date: 03/14/2024 09:32 Report Date: 03/14/2024 10:03 At the request of: LILIANE KOVACS Procedure: US OB cervical length EXAMINATION: US OB cervical length HISTORY: History Of Labor COMPARISON: No relevant comparison available. FINDINGS: position: Cephalic presentation, longitudinal lie Amniotic fluid: Subjectively normal Heart rate: 140 beats minute Cervix: 5.1 cm, closed. The Placenta completely covers the internal cervical os Clinical age: 16 weeks 6 days Clinical LYNDSAY: 08/23/2024 US/US OB cervical length IMPRESSION: Complete placenta previa Electronically authenticated by: SUMEET SHEPPARD Date: 03/14/2024 10:03
[2024-03-14 12:10] LABS: Glucose 1 Hour 109 mg/dL (<130)
[2024-03-16 02:07] LABS: AFP Value 21.3 ng/mL (.); Gest. Age on Collection Date 16.1 weeks (.); Gestat. Age Based On Ultrasound (.); Insulin Dep Diabetes No (.); Maternal Age At EDD 25.4 yr (.); OSBR Risk 1 IN 10000 (.); Results Report (.)
== END 2024-03-14 09:30 | disposition home or self-care (01) ==
LOC: US 09:29
PROVIDERS: PCP Family Medicine; Visit Provider Obstetrics & Gynecology
DX: O44.02 Complete placenta previa NOS or without hemorrhage, second trimester (principal); O09.899 Supervision of other high risk pregnancies, unspecified trimester; Z86.32 Personal history of gestational diabetes; Z3A.16 16 weeks gestation of pregnancy
CPT/HCPCS: 36415; 76817; 82105; 82950

== ENCOUNTER 2024-03-20 10:21 | Emergency (ER) | payer OTHER, SELFPAY ==
[2024-03-20 10:26] VITALS: BP 113/77; PULSE 112; O2SAT 98; BMI 35.4
--- OUTSIDE RECORDS SUMMARY | 2024-03-20 10:35 | XMS_ITS | CCD ---
Author Organization [facility] Inform ion Partnership [facility] Care Team Providers Care Film Developer Name Role Phone ISSAC HICKSIL Admitting Unavailable ISSAC HICKSIL Attending Unavailable OBDULIA ONEIL Referring Unavailable OBDULIA ONEIL Primary Care Unavailable MD Procedure Practitioner Unavailab SHARLA Singh Surgeon Unavailable MD Procedure Practitioner Unavailab AREN Ferguson Surgeon Unavailable DO Obdulia Oneil Primary Care Provider [phone] DO Radha Molina Attending Provider MD Jennie Smith Admit Provider MD Jennie Smith Attending Provider Spaaprilc, ACCOUNTS RECEIVABLE ASSISTANT-C Nataly Torres Attending Provider Tejal, ACCOUNTS RECEIVABLE ASSISTANT-C Nataly Torres Primary Care Provider DO Marcello Hudson Attending Provider CORRINA DHALIWAL Attending Unavailable CORRINA DHALIWAL Consulting Unavailable REQUEST, NONE LISTED Primary Care Unavaila CORRINA Cuevas Admitting Unavailable YNES BEST Consulting Unavailjanie JOHNSON ., DR SIMENTAL Admitting Unavailable REQUEST, NONE LISTED Primary Care Unavaila ramona JOHNSON ., DR SIMENTAL Attending Unavailable HAY ., DR SIMENTAL Consulting Unavailable PETRA SALCIDO Consulting Unavailable MARKER ., DR DOLL Admitting Unavailable MARKER ., DR DOLL Attending Unavailable MARKER ., DR DOLL Consulting Unavailable REQUEST, NONE LISTED Primary Care Unavaila NANCI Reyna Consulting Unavailable CORRINA DHALIWAL Attending Unavailable CORRINA DHALIWAL Consulting Unavailable REQUEST, NONE LISTED Primary Care Unavaila CORRINA Cuevas Admitting Unavailable PILI MIGUEL Consulting Unavailable MARY ., DR MOMIN Admitting Unavailable MARY ., DR MOMIN Attending Unavailable MARY ., DR MOMIN Consulting Unavailable REQUEST, DR NONE LISTED Primary Care Unavaila ble Spasic, ACCOUNTS RECEIVABLE ASSISTANT-C Nataly E Primary Care Provider DO Mary Kay Cantu Attending Provider MD Jennie Smith Attending Provider CADE Ortiz Emergency Provider Spasic, ACCOUNTS RECEIVABLE ASSISTANT-C Nataly E Attending Provider [facility] Primary Care Prov ider DO Radha Molina Attending Provider Spasic, ACCOUNTS RECEIVABLE ASSISTANT-C Nataly E Primary Care Provider [phone] DO Mary Kay Cantu Attending Provider MD Jennie Smith Attending Provider CADE Ortiz Emergency Provider [phone] Spasic, ACCOUNTS RECEIVABLE ASSISTANT-C Nataly E Attending Provider [facility] Primary Care Prov ider DO Radha Molina Attending Provider NO FAMILY, PHYSICIAN Primary Care Provider Unava ilable MD Ede Way Admit Provider MD Ede Way Attending Provider Spasic, ACCOUNTS RECEIVABLE ASSISTANT-C Nataly E Primary Care Provider [phone] DO Mary Kay Cantu Attending Provider Spasic, ACCOUNTS RECEIVABLE ASSISTANT-C Nataly E Attending Provider DO Radha Molina Attending Provider [facility] Primary Care Prov ider Spasic, ACCOUNTS RECEIVABLE ASSISTANT-C Nataly E Attending Provider Spasic, ACCOUNTS RECEIVABLE ASSISTANT-C Nataly E Primary Care Provider DO Carmelo Vinson Emergency Provider RANDALL Leon Emergency Provider Spasic, ACCOUNTS RECEIVABLE ASSISTANT-C Nataly E Referring Provider CADE Arceo Attending Provider Spasic, Nataly E Primary Care Unavailable Rinkes, Radha Admitting Unavailable RinPuja schwartzhleen Attending Unavailable RinRadha schwartz Attending Unavailable Rinkes, Radha Admitting Unavailable NO FAMILY, PHYSICIAN Primary Care Unavailable Spasic, Nataly E Referring Unavailable Spasic, Nataly E Primary Care Unavailable Melania Arceo Attending Unavail able Melania Arceo Admitting Unavail able Spasic, Nataly E Primary Care Unavailable Rinlana, Radha Admitting Unavailable RinkesAleshiaRadha Attending Unavailable Spasic, Nataly E Attending Unavailable Spasic, Nataly E Admitting Unavailable Spasic, Nataly E Attending Unavailable Spasic, Nataly E Admitting Unavailable Spasic, Nataly E Primary Care Unavailable Rinlana, Radha Admitting Unavailable Rinkes, Radha Attending Unavailable Spasic, Nataly E Primary Care Unavailable Carmelo Vinson Admitting Unavailable TupaCarmelo Attending Unavailable Spasic, Nataly E Primary Care Unavailable Carmelo Vinson Attending Unavailable TupaCarmelo Admitting Unavailable Spasic, Nataly E Attending Unavailable Spasic, Nataly E Admitting Unavailable Spasic, Nataly E Primary Care Unavailable Spasic, Nataly E Primary Care Unavailable Devon Leon Attending Unavailable Devon Leon Admitting Unavailable Spasic, Nataly E Attending Unavailable Spasic, Nataly E Admitting Unavailable Spasic, Nataly E Attending Unavailable Spasic, Nataly E Admitting Unavailable [facility] Primary Care U navailable Spasic, Nataly E Consulting Unavailable Jannet - S, Tino Sommer Attending Unava ilable Jannet - FHS, Tino Sommer Admitting Unava ilable Spasic, Nataly E Primary Care Unavailable Ede Way Admitting Unavailable Ede Way Attending Unavailable Spasic, Nataly E Primary Care Unavailable Mary Kay Cantu Admitting Unavailable Mary Kay Cantu Attending Unavailable Spasic, Nataly E Primary Care Unavailable Rinkes, Radha Admitting Unavailable Rinkes, Radha Attending Unavailable Unallocated , Jonny Provider Primary Care Provi emmanuel CAMACHO HERNANDEZ Attending Unavailable RADHA MOLINA Attending Unavailable RADHA MOLINA Referring Unavailable EDE WAY Referring Unavailable RADHA MOLINA Attending Unavailable RADHA MOLINA Referring Unavailable Martin Chapman MD Primary Care Provider [phone] Allergies Allergy Classification Reported Allergen(s) Allergy Type Date of Onset Reaction(s) Facility (1 source) 58821,00 Drug allergy (disorder) 07-01-2012 [facility] Repository Medications Current Medications Medication Drug Class(es) Dates Sig (Normalized) Sig (Original) acetaminophen 325 mg / oxyCODONE hydrochloride 5 mg oral tablet (5 sources) Opioid Agonist Start: 09-26-2023 take 1 tablet by mouth every six hours Oxycodone-Acetami nophen (Percocet) 5-325 mg tablet Active 1 TAB PO Q6H 10 September 26, 2023 ALPRAZolam 0.25 mg oral tablet (1 source) Benzodiazepine Start: 10-20-2023 Alprazolam Active 0.25 MG PO As Directed October 20, 2023 12:00am azithromycin 250 mg oral tablet (1 source) Macrolide Antimicrobial Start: 02-24-2018 azithromycin (ZITHROMAX Z-VALENCIA) 250 mg tablet Take 2 tablets the first day then 1 tablet every day for 4 days. 6 tablet 02/24/2018 Active ferrous sulfate 325 mg delayed release oral tablet (8 sources) Start: 10-20-2023 take 325 mg by mouth once daily Ferrous Sulfate Active 325 MG PO Daily October 20, 2023 12:00am take 1 tablet by long th once daily at breakfast ferrous sulfate 325 (65 FE) MG tablet Ta ke 1 tablet (325 mg total) by mouth daily with breakfast. Active 3 ml liraglutide 6 mg/ml pen injector (20 sources) GLP-1 Receptor Agonist Start: 10-20-2023 Liraglutide (Victoza 2-Valencia) 0.6 mg/0.1 mL (18 mg/3 mL) pen injector Active 1.2 MG SUBCUT Daily October 20, 2023 12:00am Start: 06-23-2022 End: 11-19-2022 Liraglutide (Victoza 2-Valencia) 0.6 mg/0.1 mL (18 mg/3 mL) pen injector Discontinued 0.6 MG SUBCUT Daily June 23, 2022 12:00am November 19, 2022 12:21pm lisdexamfetamine dimesylate 40 mg oral capsule (1 source) Central Nervous System Stimulant Start: 10-20-2023 take 1 capsule by mouth once daily Lisdexamfetamine (Vyvanse) 40 mg capsule Active 40 MG PO Daily October 20, 2023 12:00am 25/iron fum/folic/dha (-1 ORAL) (1 source) 25/iron fum/folic/dha (-1 ORAL) Take by mouth. Active Progesterone 200 MG suppository (3 sources) Start: 03-09-2024 End: 04-08-2024 Progesterone 200 MG suppository Indications: History of delivery, currently Insert 200 mg into the vagina at bedtime Insert suppository vaginally every night at bedtime 30 suppository 6 03/09/2024 04/08/2024 Active venlafaxine 100 mg oral tablet (20 sources) Serotonin and Norepinephrine Reuptake Inhibitor Start: 10-20-2023 take 50 mg by mouth twice daily Venlafaxine Active 50 MG PO Twice daily October 20, 2023 12:00am Start: 03-18-2023 take 1 capsule by [facility] once daily at mealtime venlafaxine XR (Effexor XR) 75 MG 24 hr capsule TAKE 1 CAPSULE BY MOUTH ONCE DAILY WITH FOOD 03/18/2023 Active Start: 06-23-2022 End: 11-19-2022 take 37.5 mg by mouth once daily at bedtime Venlafaxine Discontinued 37.5 MG PO Daily at bedtime June 23, 2022 12:00am November 19, 2022 12:21pm take 1 capsule by [facility] every twenty-four hours in the morning venlafaxine XR (EFFEXOR XR) 75 mg 24 hr capsule Take 1 capsule (75 mg total) by mouth in the morning. Active Completed/Discontinued Medications Medication Drug Class(es) Dates Sig (Normalized) Sig (Original) acetaminophen 325 mg / HYDROcodone bitartrate 5 mg oral tablet (20 sources) Opioid Agonist Start: 06-01-2017 End: 10-23-2017 take 2 tablets by mouth every four hours Hydrocodone-Acetam inophen ([place]) 5-325 mg tablet Discontinued 2 TAB PO [...] 20, 2017 1:01pm 168 hr ethinyl estradiol 0.77779 mg/hr / norelgestromin 0.56894 mg/hr transdermal system (20 sources) Progestin, Estrogen [...] 1 tablet by mouth once Methylprednisolone (Medrol (Valencia)) 4 mg tablets,dose pack Discontinued 0 PO .COMPLEX September 26, 2023 12:00am October 20, 2023 8:31am orally per package directions Start: 05-10-2020 End: 01-08-2021 take 1 tablet by mouth once Methylprednisolone (Medrol (Valencia)) 4 mg tablets,dose pack Discontinued 0 PO .COMPLEX May 10, 2020 12:00am January 08, 2021 10:36pm orally per package directions NIFEdipine 10 mg oral capsule (20 sources) Dihydropyridine Calcium Channel Aruna Start: 11-20-2022 End: 02-13-2023 take 10 mg by mouth four times daily Nifedipine Discontinued 10 MG PO Four times daily November 20, 2022 12:00am February 13, 2023 7:43pm Haskell-3 Fatty Acids-Fish Oil (20 sources) Start: 06-23-2022 End: 11-19-2022 take 1 capsule by mouth once daily Haskell-3 Fatty Acids-Fish Oil Discontinued 1 CAP PO Daily June 22, 2022 11:00pm November 19, 2022 11:22am Start: 06-23-2022 End: 11-19-2022 take 1 capsule by mouth once daily Haskell-3 Fatty Acids-Fish Oil Discontinued 1 CAP PO Daily June 23, 2022 12:00am November 19, 2022 12:22pm Start: 06-23-2022 take 1 capsule by mo [facility] once daily Haskell-3 Fatty Acids-Fish Oil Active 1 CAP PO [...] mg tablet,disintegrating Discontinued 8 MG PO Q8H 10 Whitley 17th, 2018 12:00am June 06, 2017 3:30pm Pnv Cmb#95-Ferrous [...] 07, 2017 12:00am November 12, 2017 12:01am Tgumpexa-Hjk-Hm-Fa () 1 mg Tablet (20 sources) Start: 11-19-2022 End: 02-13-2023 take 1 tablet by mouth once daily Ndikknvq-Pau-Tk-Fa () 1 mg Tablet Discontinued 1 TAB PO Daily November 19, 2022 12:00am February 13, 2023 7:43pm Start: 11-19-2022 End: 02-13-2023 take 1 tablet by mouth once daily Romixokm-Nnc-Uk-Fa () 1 mg Tablet Discontinued 1 TAB PO Daily November 18, 2022 11:00pm February 13, 2023 6:43pm Start: 11-19-2022 take 1 tablet by long th once daily Qsmxgagz-Hux-Gl-Fa () 1 mg Tablet Active 1 TAB PO Daily November 18, 2022 11:00pm Start: 11-19-2022 take 1 tablet by long th once daily Sjckmodz-Zzc-Cl-Fa () 1 mg Tablet Active 1 TAB [...] Problem Classification Problem Date Documented Date Episodic/Chronic Anxiety disorders (12 sources) Anxiety; Translations: [Anxiety disorder, unspecified] Onset: 06-25-2022 06-25-2022 Chronic Deficiency and other anemia (1 source) [...] [Generalized enlarged lymph nodes] Onset: 09-30-2023 Episodic Menstrual disorders (13 sources) Missed period; Translations: [Irregular menstruation, unspecified] Onset: 06-25-2022 02-03-2024 Chronic Mood disorders (20 sources) Depressive disorder; Translations: [...] Translations: [Obesity, unspecified] Onset: 03-04-2023 Chronic Other and delivery including normal (4 sources) ; Translations: [Encounter for supervision of normal , unspecified, unspecified trimester] 02-03-2024 Episodic Other screening for suspected conditions (not mental disorders or infectious disease) (2 sources) Patient encounter status; Translations: [Encounter for screening for diabetes mellitus] 03-09-2024 Episodic Other upper respiratory infections (20 sources) Viral [...] ; Translations: [ state, incidental] 02-13-2023 Episodic Residual codes; unclassified (2 sources) Gestation period, 16 weeks; Translations: [16 weeks gestation of ] 03-09-2024 Episodic Spondylosis; intervertebral disc disorders; other back [...] for screening for Streptococcus B] Onset: 01-05-2023 Unclassified (6 sources) OB Reminders Onset: 09-02-2022 09-02-2022 Urinary tract infections (5 sources) Urinary tract infectious disease; Translations: [Urinary tract infection, site not specified] 09-26-2023 Episodic Viral infection (19 sources) Viral disease; Translations: [Viral infection, unspecified] 12-01-2022 Episodic Viral infection (1 source) COVID-19; Translations: [COVID-19] Onset: 08-11-2021 Past or Other Problems Problem Classification Problem Date Documented Date Episodic/Chronic Abdominal pain (20 sources) Acute pelvic pain; Translations: [Pelvic and perineal pain] Onset: 06-03-2022 01-03-2017 Episodic Biliary tract disease (20 sources) Calculus of bile duct without cholangitis or cholecystitis without obstruction; Translations: [Cholecystitis] Onset: 06-04-2022 06-29-2022 Episodic Diabetes or abnormal glucose tolerance complicating ; childbirth; or the puerperium (9 sources) Abnormal glucose complicating ; Translations: [Gestational diabetes mellitus] Onset: 06-25-2022 06-25-2022 Episodic Early or threatened labor (1 source) [...] COMP PREG SECOND TRI] Onset: 08-11-2021 Episodic Other complications of (8 sources) H/O: premature delivery; Translations: [Supervision of other high risk pregnancies, unspecified trimester] Onset: 06-25-2022 06-25-2022 Episodic Other complications of (6 sources) Finding related to ; Translations: [Other specified related conditions, third trimester] Onset: 06-25-2022 06-25-2022 Episodic Polyhydramnios and other problems of amniotic cavity (6 sources) Polyhydramnios with problem; Translations: [Polyhydramnios, third trimester, not applicable or unspecified] Onset: 06-25-2022 06-25-2022 Episodic Residual codes; unclassified (1 source) 25 [...] Test Name Value Interpretation Reference Range Facility Rad - Other Radiology Report on 03-14-2024 Rad - Other Radiology Report [id number]#[id number] [facility] US OB CERVICAL LENGTHon 02-[address] [address] Ultrasound Report Signed Patient: ROSETTE ALBA MR#: [id number] : 2000 Acct:[id number] Age/Sex: 23 / F ADM Date: 03/14/24 Loc: US Attending Dr: Camacho Hernandez D.O. Ordering Physician: Camacho Hernandez D.O. Date of Service: 03/14/24 Procedure(s): US OB cervical length Accession Number(s): [id number] cc: Camacho Hernandez D.O.; OBDULIA ONEIL [address] [address] Patient Name: ROSETTE ALBA MRN: [facility]:[id number] date: 2000 Sex: F Assigned Patient Location: US Current Patient Location: US Accession/Order Number: [id number] Exam Date: 03/14/2024 09:32 Report Date: 03/14/2024 10:03 At the request of: CAMACHO HERNANDEZ Procedure: US OB cervical length EXAMINATION: US OB cervical length HISTORY: History Of Labor COMPARISON: No relevant comparison available. FINDINGS: position: Cephalic presentation, longitudinal lie Amniotic fluid: Subjectively normal Heart rate: 140 beats minute Cervix: 5.1 cm, closed. The Placenta completely covers the internal cervical os Clinical age: 16 weeks 6 days Clinical LYNDSAY: 08/23/2024 US/US OB cervical length IMPRESSION: Complete placenta previa Electronically authenticated by: SUMEET NEVILLE Date: 03/14/2024 10:03 Dictated By: Sumeet Neville M.D. Signed By: 03/14/24 1006 DD/ 1003 TD/TT: Tour Sales Representative: [facility] Radiology, Radiologi MD barry - 03/14/2024 [place] [address] Ultrasound Report Signed Patient: ROSETTE ALBA MR#: [id number] : 2000 Acct:[id number] Age/Sex: 23 / F ADM Date: 03/14/24 Loc: US Attending Dr: Camacho Hernandez D.O. Ordering Physician: Camacho Hernandez D.O. Date of Service: 03/14/24 Procedure(s): US OB cervical length Accession Number(s): [id number] cc: Camacho Hernandez D.O.; OBDULIA ONEIL The [address] [address] Patient Name: ROSETTE ALBA MRN: [facility]:[id number] date: 2000 Sex: F Assigned Patient Location: US Current Patient Location: US Accession/Order Number: [id number] Exam Date: 03/14/2024 09:32 Report Date: 03/14/2024 10:03 At the request of: CAMACHO HERNANDEZ Procedure: US OB cervical length EXAMINATION: US OB cervical length HISTORY: History Of Labor COMPARISON: No relevant comparison available. FINDINGS: position: Cephalic presentation, longitudinal lie Amniotic fluid: Subjectively normal Heart rate: 140 beats minute Cervix: 5.1 cm, closed. The Placenta completely covers the internal cervical os Clinical age: 16 weeks 6 days Clinical LYNDSAY: 08/23/2024 US/US OB cervical length IMPRESSION: Complete placenta previa Electronically authenticated by: SUMEET NEVILLE Date: 03/14/2024 10:03 Dictated By: Sumeet Neville M.D. Signed By: 03/14/24 1006 DD/ 1003 TD/TT: Tour Sales Representative: [facility] Radiology Study observation (narrative) [facility] US OB CERVICAL LENGTHOrdered By: Radiologist Radiology on 03-14-2024 [facility] Work Phone: Urinalysis macro (dipstick) panel (U)on 03-09-2024 Bilirubin, UA Negative Negative - 4(70) +++ mg/dL [facility] Blood, UA Negative Negative - 50 Isaac/mcL [facility] Clarity, UA Clear [facility] Color, UA Yellow [facility] Glucose, UA Negative Negative - 2000(110) ++++ mg/dL [facility] Interpretation and review of laboratory results Normal [facility] Ketones, UA Negative Negative - 160(16) ++++ mg/dL [facility] Leukocytes, UA Negative Negative - 500+++ Shreya/mcL [facility] Nitrite, UA Negative Negative - Positive [facility] pH, UA 7.5 5 - 9 [facility] Protein, UA Negative Negative - 2000(20) ++++ mg/dL [facility] Spec Grav, UA 1.02 1 - 1.03 [facility] Urobilinogen, UA 1.0 0.2 - 12 mg/dL [facility] Free Cell DNAon 2024 [facility] BOX TESTon 02-25-2024 BOX TEST SENT OUT [facility] BOX1 [facility] BOX2 02/25/2024 [facility] BOX CLINISYNC [facility] HCG ( test) Ql (U)o n 02-03-2024 Interpretation and review of laboratory results Abnormal [facility] Preg Test, Ur Positive Negative [facility] Rad - Ultrasound Reporton Rad - Ultrasound Report [id number]#1.00OTGTIF [facility] Urinalysis macro (dipstick) panel (U)on 02-03-2024 Bilirubin, UA Negative Negative - 4(70) +++ mg/dL [facility] Blood, UA Negative Negative - 50 Isaac/mcL [facility] Clarity, UA Clear [facility] Color, UA Yellow [facility] Glucose, UA Negative Negative - 1999(110) ++++ mg/dL [facility] Interpretation and review of laboratory results Abnormal [facility] Ketones, UA Negative Negative - 160(16) ++++ mg/dL [facility] Leukocytes, UA Negative Negative - 500+++ Shreya/mcL [facility] Nitrite, UA Negative Negative - Positive [facility] pH, UA 5.5 5 - 9 [facility] Protein, UA Positive Negative - 1999(20) ++++ mg/dL [facility] Comment on above: 100 Spec Grav, UA 1.03 1 - 1.03 [facility] Urobilinogen, UA 0.2 0.2 - 12 mg/dL [facility] Rad - Other Radiology Report on 01-07-2024 Rad - Other Radiology Report [id number]#1.00OTGTIFF [facility] Outside Recordson 12-14-2023 Outside Records [id number]#1.00OTGTIF [facility] Outside Records [id number]#1.00OTGTIF F [facility] liver 10-07-2023 [facility] [address] [place] [id number] Ultrasound Report Signed Patient: Rosette Alba MR#: [id number] : 2000 Acct:[id number] Age/Sex: 23 / F ADM Date: 10/07/23 Loc: Room: Type: REG CLI Attending Dr: Nataly BOND Ordering Provider: RONDA [...] FINDINGS.. Impression dictated by: Richard Kirkland Jr., D.OIdania10/07/2023 11:25 AM Dictation Location: [place] [address] Tech: [facility] Transcribed By: ANDREY 10/07/23 1125 Dictated By: Richard Kirkland Jr, DO 10/07/23 1123 Signed By: 10/07/23 1125 Normal [facility] US thyroidon 10-07-[address] [place] [address] Ultrasound Report Signed Patient: Rosette Alba MR#: [id number] : 2000 Acct:[id number] Age/Sex: 23 / F ADM Date: 10/07/23 Loc: Room: Type: [facility] CLI Attending Dr: Nataly BOND Ordering Provider: RONDA [...] suggested. Impression dictated by: Richard Kirkland Jr., D.O.10/07/2023 11:26 AM Dictation Location: [place] [address] Tech: Marie Max Transcribed By: ANDREY 10/07/23 1126 Dictated By: Richard Kirkland Jr, DO 10/07/23 1125 Signed By: 10/07/23 1126 Normal [facility] XR KUBon 10-07-[address] [place] [address] XRay Report Signed Patient: Rosette Alba MR#: [id number] : 2000 Acct:[id number] Age/Sex: 23 / F ADM Date: 10/07/23 Loc: Room: Type: [facility] Attending Dr: Nataly BOND Copies to: RONDA [...] Kirkland Jr., D.O.10/07/2023 8:50 AM Dictation Location: [place] [address] Transcribed By: [facility] 10/07/23 0850 Dictated By: Richard Kirkland Jr DO 10/07/23 0849 Signed By: 10/07/23 0850 Normal [facility] Bacteria [Presence] in Urine by AutomatedOrdered By: Carmelo Vinson on 10-04-2023 Bacteria Auto Ql (U) None seen [HPF] None Seen [facility] Bilirubin Test strip Ql (U)O rdered By: Carmelo Beckmanynes on 10-04-2023 Bilirubin Ql (U) Negative Negative [facility] Color of Urine by AutoOrdere d By: Carmelo Alisson on 10-04-2023 Color (U) Yellow Normal Yellow [facility] Comment on above: Order Comment: Name Collection Type:: Clean-Voided Midstream Performed By: #### A DDONUAPLUS, UHCG #### [facility] [address] [place] [address] [place] Dipstick and Microscopicon 0 10-04-2023 Bacteria,Urine None Seen Normal None Seen [facility] Comment on above: Order Comment: Name Collection Type:: Clean-Voided Midstream Performed By: #### A DDONUAPLUS, UHCG #### [place] [id number] [place] Bilirubin,Urine Negative Normal Negative [facility] Comment on above: Order Comment: Name Collection Type:: Clean-Voided Midstream Performed By: #### A DDONUAPLUS, UHCG #### [place] [id number] [place] Glucose Ql (U) Normal Normal Normal [facility] Comment on above: Order Comment: Name Collection Type:: Clean-Voided Midstream Performed By: #### A DDONUAPLUS, UHCG #### [facility] [address] [place] [id number] [place] Hyaline Casts,Urine 0-8 Normal 0-8 [facility] Comment on above: Order Comment: Name Collection Type:: Clean-Voided Midstream Performed By: #### A DDONUAPLUS, UHCG #### [facility] [address] [place] [address] [place] Mucus,Urine 4+ Critically abnormal [facility] Comment on above: Order Comment: Name Collection Type:: Clean-Voided Midstream Performed By: #### A DDONUAPLUS, UHCG #### [place] [id number] [place] Nitrite,Urine Negative Normal Negative [facility] Comment on above: Order Comment: Name Collection Type:: Clean-Voided Midstream Performed By: #### A DDONUAPLUS, UHCG #### [address] Occult Blood,Urine Negative Normal Negative [facility] Comment on above: Order Comment: Name Collection Type:: Clean-Voided Midstream Performed By: #### A DDONUAPLUS, UHCG #### [place] [id number] [place] RBC,Urine 1-2 Normal 0-4 [facility] Comment on above: Order Comment: Name Collection Type:: Clean-Voided Midstream Performed By: #### A DDONUAPLUS, UHCG #### [address] Specificy [place],Urine 1.039 High 1.001-1.03 0 [facility] Comment on above: Order Comment: Name Collection Type:: Clean-Voided Midstream Performed By: #### A DDONUAPLUS, UHCG #### [place] [id number] [place] Squamous Epithelial Cell,Urine 5-9 High 0-2 [facility] Comment on above: Order Comment: Name Collection Type:: Clean-Voided Midstream Performed By: #### A DDONUAPLUS, UHCG #### [address] Urobilinogen,Urine 2 mg/dL High Normal [facility] Comment on above: Order Comment: Name Collection Type:: Clean-Voided Midstream Performed By: #### A DDONUAPLUS, UHCG #### [place] [id number] [place] WBC,Urine 3-4 Normal 0-4 [facility] Comment on above: Order Comment: Name Collection Type:: Clean-Voided Midstream Performed By: #### A DDONUAPLUS, UHCG #### [place] [id number] [place] Epithelial cells.squamous [# /area] in Urine sediment by Automated countOrdered By: Carmelo Vinson on 10-04-2023 Epithelial cells.squamous Auto (Urine sed) [#/Area] 5-9 [HPF] High 0-2 [facility] Erythrocytes [#/area] in Uri ne sediment by Automated countOrdered By: Carmelo Vinson on 10-04-2023 RBC Auto (Urine sed) [#/Area] 1-2 [HPF] 0-4 [facility] Glucose [Mass/volume] in Uri ne by Test stripOrdered By: Carmelo Vinson on 10-04-2023 Glucose Test strip (U) [Mass/Vol] Normal mg/dL Normal [facility] HCG ( test) IA.rapi d Ql (U)Ordered By: PROVIDER TEMP on 10-04-2023 HCG ( test) Ql (U) Negative [facility] HCG,Urineon 10-04-2023 Beta HCG ( test) Ql (U) Negative Normal [facility] Comment on above: Order Comment: Name Collection Type:: Clean-Voided Midstream Result Comment: PERF ORMED BY: [place] [address] PATHOLOGIST DUTY ENGINEER ALLA OROZCO M.D. Performed By: #### A JOSE [facility] #### [address] Hemoglobin Test strip Ql (U) Ordered By: Carmelo Vinson on 10-04-2023 Hemoglobin Ql (U) Negative Negative [facility] Hyaline casts [#/area] in Ur ine sediment by Automated countOrdered By: Carmelo Vinson on 10-04-2023 Hyaline casts Auto (Urine sed) [#/Area] 0-8 [LPF] 0-8 [facility] Ketones [Presence] in Urine by Test stripOrdered By: Carmelo Vinson on 10-04-2023 Ketones Ql (U) Trace High Negative [facility] Comment on above: Order Comment: Name Collection Type:: Clean-Voided Midstream Performed By: #### A BROCK GARCIACG #### [place] [id number] [place] Leukocyte esterase [Presence ] in Urine by Test stripOrdered By: Carmelo Vinson on 10-04-2023 Leukocyte esterase Test strip Ql (U) Negative Normal Negative [facility] Comment on above: Order Comment: Name Collection Type:: Clean-Voided Midstream Performed By: #### A IHSAN GARCIAG #### [address] Leukocytes [#/area] in Urine sediment by Automated countOrdered By: Carmelo Vinson on 10-04-2023 WBC Auto (Urine sed) [#/Area] 3-4 [HPF] 0-4 [facility] Mucus [Presence] in Urine by AutomatedOrdered By: Carmelo Vinson on 10-04-2023 Mucus Auto Ql (U) 4+ [LPF] Abnormal [facility] Nitrite Test strip Ql (U)Ord ered By: Carmelo Vinson on 10-04-2023 Nitrite Ql (U) Negative Negative [facility] Protein [Mass/volume] in Uri ne by Test stripOrdered By: Carmelo Vinson on 10-04-2023 Protein (U) [Mass/Vol] 30 mg/dL High Negative [facility] Comment on above: Order Comment: Name Collection Type:: Clean-Voided Midstream Performed By: #### A VERNA GARCIA #### [address] Specific gravity Test strip (U) [Rel density]Ordered By: Carmelo Vinson on 10-04-2023 Specific gravity (U) [Rel density] 1.039 High 1.001-1.03 0 [facility] Urine appearanceOrdered By: Carmelo Vinson on 10-04-2023 Appearance (U) Clear Normal Clear [facility] Comment on above: Order Comment: Name Collection Type:: Clean-Voided Midstream Performed By: #### A JOSE AnirudhG #### [address] Urobilinogen Test strip (U) [Mass/Vol]Ordered By: Carmelo Vinson on 10-04-2023 Urobilinogen (U) [Mass/Vol] 2 mg/dL High Normal [facility] pH of Urine by Test stripOrd ered By: Carmeloviviana Vinson on 10-04-2023 pH (U) 6.0 [pH] Normal 5.0-9.0 [facility] Comment on above: Order Comment: Name Collection Type:: Clean-Voided Midstream Performed By: #### A DDONUAPLUS, CG #### [facility] [address] [place] [address] [place] Alanine aminotransferase [En zymatic activity/volume] in Serum or PlasmaOrdered By: Nataly Toure on 09-30-2023 ALT [Catalytic activity/Vol] 14 U/L Normal 7-52 [facility] Comment on above: Order Comment: Reaso n for Exam Adenopathy Reason for Exam Iron deficiency Reason for Exam Hypothyroidism, unspecified type Performed By: #### C USTB #### [place] [id number] [place] Albumin [Mass/volume] in Ser um or Plasma by Bromocresol green (BCG) dye binding methoOrdered By: Nataly Toure on 09-30-2023 Albumin BCG dye [Mass/Vol] 4.2 g/dL 3.5-5.7 [facility] Alkaline phosphatase [Enzyma tic activity/volume] in Serum or PlasmaOrdered By: Nataly Toure on 09-30-2023 ALP [Catalytic activity/Vol] 80 U/L Normal 34-104 [facility] Comment on above: Order Comment: Reaso n for Exam Adenopathy Reason for Exam Iron deficiency Reason for Exam Hypothyroidism, unspecified type Performed By: #### C USTB #### [facility] [address] [place] [address] [place] Aspartate aminotransferase [ Enzymatic activity/volume] in Serum or PlasmaOrdered By: Nataly Toure on 09-30-2023 AST [Catalytic activity/Vol] 10 U/L Low 13-39 [facility] Comment on above: Order Comment: Reaso n for Exam Adenopathy Reason for Exam Iron deficiency Reason for Exam Hypothyroidism, unspecified type Performed By: #### C USTB #### [place] [id number] [place] Automated basophil %Ordered By: Nataly Jerniganc on 09-30-2023 Basophils/100 WBC (Bld) 0.5 % Normal . [facility] Comment on above: Order Comment: Reaso n for Exam Adenopathy Performed By: #### C USTB #### [address] Automated basophil countOrde red By: Nataly Jerniganc on 09-30-2023 Basophils (Bld) [#/Vol] 0.0 10*3/uL Normal 0.0-0.2 [facility] Comment on above: Order Comment: Reaso n for Exam Adenopathy Result Comment: PERF ORMED BY: [place] [address] PATHOLOGIST DUTY ENGINEER ALLA OROZCO M.D. Performed By: #### C USTB #### [address] Automated blood monocyte cou ntOrdered By: Nataly Toure on 09-30-2023 Monocytes (Bld) [#/Vol] 0.7 10*3/uL Normal 0.0-0.8 [facility] Comment on above: Order Comment: Reaso n for Exam Adenopathy Performed By: #### C USTB #### [address] Automated eosinophil %Ordere d By: Nataly Spasic on 09-30-2023 Eosinophils/100 WBC (Bld) 0.4 % Normal . [facility] Comment on above: Order Comment: Reaso n for Exam Adenopathy Performed By: #### C USTB #### [address] Automated eosinophil countOr dered By: Nataly Jerniganc on 09-30-2023 Eosinophils (Bld) [#/Vol] 0.0 10*3/uL Normal 0.0-0.45 [facility] Comment on above: Order Comment: Reaso n for Exam Adenopathy Performed By: #### C USTB #### [address] Automated monocyte %Ordered By: Nataly Jerniganc on 09-30-2023 Monocytes/100 WBC (Bld) 8.0 % Normal . [facility] Comment on above: Order Comment: Reaso n for Exam Adenopathy Performed By: #### C USTB #### [facility] [address] Automated neutrophil %Ordere d By: Nataly Shayleesic on 09-30-2023 Neutrophils/100 WBC (Bld) 58.7 % Normal . [facility] Comment on above: Order Comment: Reaso n for Exam Adenopathy Performed By: #### C USTB #### [facility] [address] Bilirubin.total [Mass/volume ] in Serum or PlasmaOrdered By: Nataly Jerniganc on 09-30-2023 Bilirubin [Mass/Vol] 0.3 mg/dL Normal 0.3-1.0 [facility] Comment on above: Order Comment: Reaso n for Exam Adenopathy Reason for Exam Iron deficiency Reason for Exam Hypothyroidism, unspecified type Performed By: #### C USTB #### [facility] [address] [place] [address] Calcium [Mass/volume] in Ser um or PlasmaOrdered By: Nataly Jerniganc on 09-30-2023 Calcium [Mass/Vol] 9.3 mg/dL Normal 8.6-10.3 [facility] Comment on above: Order Comment: Reaso n for Exam Adenopathy Reason for Exam Iron deficiency Reason for Exam Hypothyroidism, unspecified type Performed By: #### C USTB #### [facility] [address] [place] [address] [place] Carbon dioxide, total [Moles /volume] in Serum or PlasmaOrdered By: Nataly Shayleesic on 09-30-2023 CO2 [Moles/Vol] 29.9 mmol/L Normal 21.0-31.0 [facility] Comment on above: Order Comment: Reaso n for Exam Adenopathy Reason for Exam Iron deficiency Reason for Exam Hypothyroidism, unspecified type Performed By: #### C USTB #### [address] Chloride [Moles/volume] in S rosa or PlasmaOrdered By: Natayl Toure on 09-30-2023 Chloride [Moles/Vol] 103 mmol/L Normal 98-107 [facility] Comment on above: Order Comment: Reaso n for Exam Adenopathy Reason for Exam Iron deficiency Reason for Exam Hypothyroidism, unspecified type Performed By: #### C USTB #### [address] Complete Blood Count Auto Di ffon 09-30-2023 Mean Corpuscular HGB Conc 33.2 g/dL Normal 32.0-35.0 [facility] Comment on above: Order Comment: Reaso n for Exam Adenopathy Performed By: #### C USTB #### [address] NRBC% 0.1 /100{WBC} Normal 0-0.5 [facility] Comment on above: Order Comment: Reaso n for Exam Adenopathy Performed By: #### C USTB #### [address] Comprehensive Metabolic Pane marco 09-30-2023 Albumin [Mass/Vol] 4.2 g/dL Normal 3.5-5.7 [facility] Comment on above: Order Comment: Reaso n for Exam Adenopathy Reason for Exam Iron deficiency Reason for Exam Hypothyroidism, unspecified type Performed By: #### C USTB #### [address] GFR/1.73 sq M.predicted MDRD (S/P/Bld) [Vol rate/Area] mL/min/{1.73_m2} Normal [facility] Comment on above: Order Comment: Reaso n for Exam Adenopathy Reason for Exam Iron deficiency Reason for Exam Hypothyroidism, unspecified type Performed By: #### C USTB #### [address] Creatinine [Mass/volume] in Serum or PlasmaOrdered By: Nataly Toure on 09-30-2023 Creatinine [Mass/Vol] 0.73 mg/dL Normal 0.60-1.20 [facility] Comment on above: Order Comment: Reaso n for Exam Adenopathy Reason for Exam Iron deficiency Reason for Exam Hypothyroidism, unspecified type Performed By: #### C USTB #### [address] D-Dimer High Sensitivityon 0 09-30-2023 D-Dimer High Sensitivity < 200 Normal 0-243 [facility] Comment on above: Order Comment: [...] coagulation studies. Please contact the laboratory at [phone] for redraw instructions. PERFORMED BY: [place] [address] PATHOLOGIST DUTY ENGINEER ALLA OROZCO M.D. Performed By: #### G TT3 #### [address] Erythrocyte distribution wid th [Ratio] by Automated countOrdered By: Nataly Toure on 09-30-2023 Erythrocyte distribution width (RBC) [Ratio] 15.0 % Normal 11.9-15.3 [facility] Comment on above: Order Comment: Reaso n for Exam Adenopathy Performed By: #### C USTB #### [address] Erythrocytes [#/volume] in B lood by Automated countOrdered By: Nataly Toure on 09-30-2023 RBC (Bld) [#/Vol] 4.79 10*6/uL Normal 3.60-5.[address] [facility] Comment on above: Order Comment: Reaso n for Exam Adenopathy Performed By: #### C USTB #### [facility] [address] [place] [address] [facility] Fibrin D-dimer [Presence] in Platelet poor plasma by Latex agglutinationOrdered By: Nataly Toure on 09-30-2023 Fibrin D-dimer LA Ql (PPP) < 200 ng/mL 0-243 [facility] Comment on above: The reference range for [...] coagulation studies. Please contact the laboratory at [phone] for redraw instructions. Glucose [Mass/volume] in Ser um or PlasmaOrdered By: Nataly Toure on 09-30-2023 Glucose [Mass/Vol] 75 mg/dL Normal 70-100 [facility] Comment on above: ADA recommended refe rence rangeRandom Glucose Reference Range is dependent on time and content of last meal. Glucose of more than 200 mg/dL in a nonstressed, ambulatory subject supports the diagnosis of Diabetes Mellitus. Order Comment: Reaso n for Exam Adenopathy Reason for Exam Iron deficiency Reason for Exam Hypothyroidism, unspecified type Result Comment: [place] om Glucose Reference Range is dependent on time and content of last meal. Glucose of more than 200 mg/dL in a nonstressed, ambulatory subject supports the diagnosis of Diabetes Mellitus. ADA recommended reference range Performed By: #### C USTB #### [address] Hematocrit [Volume Fraction] of Blood by Automated countOrdered By: Nataly Toure on 09-30-2023 Hematocrit (Bld) [Volume fraction] 37.9 % Normal 34.0-46.4 [facility] Comment on above: Order Comment: Reaso n for Exam Adenopathy Performed By: #### C USTB #### [facility] [address] [place] [address] Hemoglobin [Mass/volume] in BloodOrdered By: Nataly Toure on 09-30-2023 Hemoglobin (Bld) [Mass/Vol] 12.6 g/dL Normal 11.8-15.4 [facility] Comment on above: Order Comment: Reaso n for Exam Adenopathy Performed By: #### C USTB #### [address] Iron [Mass/volume] in Serum or PlasmaOrdered By: Nataly Toure on 09-30-2023 Iron [Mass/Vol] 43 ug/dL Low 50-212 [facility] Comment on above: Order Comment: Reaso n for Exam Adenopathy Reason for Exam Iron deficiency Reason for Exam Hypothyroidism, unspecified type Performed By: #### G TT3 #### [address] Iron and TIBC Profileon 09-15 % Iron Saturation 10.6 % Low 20-50 [facility] Comment on above: Order Comment: Reaso n for Exam Adenopathy Reason for Exam Iron deficiency Reason for Exam Hypothyroidism, unspecified type Performed By: #### G TT3 #### [facility] [address] [place], [place] [id number] [place] Total Iron Binding Capacity 406 ug/dL Normal 255-450 [facility] Comment on above: Order Comment: Reaso n for Exam Adenopathy Reason for Exam Iron deficiency Reason for Exam Hypothyroidism, unspecified type Performed By: #### G TT3 #### [facility] [address] [place], [place] [id number] [place] Iron binding capacity [Mass/ volume] in Serum or PlasmaOrdered By: Nataly Toure on 09-30-2023 Iron binding capacity [Mass/Vol] 406 ug/dL 255-450 [facility] Iron saturation [Mass Fracti on] in Serum or PlasmaOrdered By: Nataly Toure on 09-30-2023 Iron saturation [Mass fraction] 10.6 % Low 20-50 [facility] Leukocytes [#/volume] correc kee for nucleated erythrocytes in Blood by Automated counOrdered By: Nataly Toure on 09-30-2023 WBC corrected for nucl RBC Auto (Bld) [#/Vol] 8.2 10*3/uL 3.8-11.6 [facility] Leukocytes [#/volume] in Blo od by Automated countOrdered By: Nataly Toure on 09-30-2023 WBC (Bld) [#/Vol] 8.2 10*3/uL Normal 3.8-11.6 [facility] Comment on above: Order Comment: Reaso n for Exam Adenopathy Performed By: #### C USTB #### [facility] [address] [place] [address] [place] Lymphocytes [#/volume] in Bl ood by Automated countOrdered By: Nataly Toure on 09-30-2023 Lymphocytes (Bld) [#/Vol] 2.7 10*3/uL Normal 1.00-4.8 [facility] Comment on above: Order Comment: Reaso n for Exam Adenopathy Performed By: #### C USTB #### [facility] [address] [place] [address] [place] Lymphocytes/100 leukocytes i n Blood by Automated countOrdered By: Nataly Toure on 09-30-2023 Lymphocytes/100 WBC (Bld) 32.4 % Normal . [facility] Comment on above: Order Comment: Reaso n for Exam Adenopathy Performed By: #### C USTB #### [facility] [address] [place] [address] [place] MCH [Entitic mass] by Automa kee countOrdered By: Nataly Toure on 09-30-2023 MCH (RBC) [Entitic mass] 26.3 pg Normal 24.7-34.3 [facility] Comment on above: Order Comment: Reaso n for Exam Adenopathy Performed By: #### C USTB #### [facility] [address] [place] [address] MCHC Auto (RBC) [Mass/Vol]Or dered By: Nataly Toure on 09-30-2023 MCHC (RBC) [Mass/Vol] 33.2 g/dL 32.0-35.0 [facility] MCV [Entitic volume] by Auto mated countOrdered By: Nataly Toure on 09-30-2023 MCV (RBC) [Entitic vol] 79.1 fL Low 80-100 [facility] Comment on above: Order Comment: Reaso n for Exam Adenopathy Performed By: #### C USTB #### [address] Neutrophils [#/volume] in Bl ood by Automated countOrdered By: Nataly Toure on 09-30-2023 Neutrophils (Bld) [#/Vol] 4.8 10*3/uL Normal 1.8-7.7 [facility] Comment on above: Order Comment: Reaso n for Exam Adenopathy Performed By: #### C USTB #### [facility] [address] [place] [address] No Panel InformationOrdered By: Nataly Toure on 09-30-2023 Estimated GFR (CKD-EPI) > 60.0 mL/Min [facility] Creatinine Clearance (Chem N/A [facility] Nucleated erythrocytes [Pres ence] in Blood by Automated countOrdered By: Nataly Toure on 09-30-2023 Nucleated RBC Auto Ql (Bld) 0.1 /100{WBC} 0-0.5 [facility] Platelet mean volume [Entiti c volume] in Blood by Automated countOrdered By: Nataly Toure on 09-30-2023 Platelet mean volume (Bld) [Entitic vol] 9.2 fL Normal 6.3-10.7 [facility] Comment on above: Order Comment: Reaso n for Exam Adenopathy Performed By: #### C USTB #### [address] Platelets [#/volume] in Bloo d by Automated countOrdered By: Nataly Toure on 09-30-2023 Platelets (Bld) [#/Vol] 246 10*3/uL Normal 150-450 [facility] Comment on above: Order Comment: Reaso n for Exam Adenopathy Performed By: #### C USTB #### [address] Potassium [Moles/volume] in Serum or PlasmaOrdered By: Nataly Toure on 09-30-2023 Potassium [Moles/Vol] 3.9 mmol/L Normal 3.5-5.1 [facility] Comment on above: Order Comment: Reaso n for Exam Adenopathy Reason for Exam Iron deficiency Reason for Exam Hypothyroidism, unspecified type Performed By: #### C USTB #### [address] Protein [Mass/volume] in Ser um or PlasmaOrdered By: Nataly Toure on 09-30-2023 Protein [Mass/Vol] 7.0 g/dL Normal 6.4-8.9 [facility] Comment on above: Order Comment: Reaso n for Exam Adenopathy Reason for Exam Iron deficiency Reason for Exam Hypothyroidism, unspecified type Performed By: #### C USTB #### [address] Serum globulin measurement b y calculation (mass/volume)Ordered By: Nataly Toure on 09-30-2023 Globulin (S) [Mass/Vol] 2.8 g/dL [facility] Comment on above: Order Comment: Reaso n for Exam Adenopathy Reason for Exam Iron deficiency Reason for Exam Hypothyroidism, unspecified type Performed By: #### C USTB #### [address] Serum or plasma albumin/glob ulin mass ratioOrdered By: Nataly Toure on 09-30-2023 Albumin/Globulin [Mass ratio] 1.5 {ratio} [facility] Comment on above: Order Comment: Reaso n for Exam Adenopathy Reason for Exam Iron deficiency Reason for Exam Hypothyroidism, unspecified type Performed By: #### C USTB #### [facility] [address] [place] [address] Serum or plasma anion gap de terminationOrdered By: Nataly Toure on 09-30-2023 Anion gap [Moles/Vol] 11.0 mmol/L Normal 6.0-15.0 [facility] Comment on above: Order Comment: Reaso n for Exam Adenopathy Reason for Exam Iron deficiency Reason for Exam Hypothyroidism, unspecified type Performed By: #### C USTB #### [facility] [address] [place] [address] Sodium [Moles/volume] in Ser um or PlasmaOrdered By: Nataly Toure on 09-30-2023 Sodium [Moles/Vol] 140 mmol/L Normal 136-145 [facility] Comment on above: Order Comment: Reaso n for Exam Adenopathy Reason for Exam Iron deficiency Reason for Exam Hypothyroidism, unspecified type Performed By: #### C USTB #### [facility] [address] [place] [address] Thyroid Stim Hormone w/Rflxo n 09-30-2023 Thyroid Stim Hormone w/Rflx 4.99 u[iU]/mL Normal 0.45-5.33 [facility] Comment on above: Order Comment: Reaso n for Exam Adenopathy Reason for Exam Iron deficiency Reason for Exam Hypothyroidism, unspecified type Result Comment: PERF ORMED BY: [place] [address] PATHOLOGIST DUTY ENGINEER ALLA OROZCO M.D. Performed By: #### G TT3 #### [address] Thyrotropin [Units/volume] i n Serum or PlasmaOrdered By: Nataly Toure on 09-30-2023 TSH Qn 4.99 m[IU]/L 0.45-5.33 [facility] Transferrin [Mass/volume] in Serum or PlasmaOrdered By: Nataly Toure on 09-30-2023 Transferrin [Mass/Vol] 290 mg/dL Normal 203-362 [facility] Comment on above: Order Comment: Reaso n for Exam Adenopathy Reason for Exam Iron deficiency Reason for Exam Hypothyroidism, unspecified type Performed By: #### G TT3 #### [address] Urea nitrogen [Mass/volume] in Serum or PlasmaOrdered By: Nataly Toure on 09-30-2023 Urea nitrogen [Mass/Vol] 23 mg/dL Normal 7-25 [facility] Comment on above: Order Comment: Reaso n for Exam Adenopathy Reason for Exam Iron deficiency Reason for Exam Hypothyroidism, unspecified type Performed By: #### C USTB #### [address] lumbar spine wo conon CT lumbar spine wo con [facility] [place] [address] [place] [address] CT Scan Report Signed Patient: Rosette Alba MR#: [id number] : 2000 Acct:[id number] Age/Sex: 23 / F ADM Date: 09/26/23 Loc: ER Room: Type: [facility] ER Attending Dr: Copies to: Devon Leon PA-C [...] Deborah Vazquez M.D.09/27/2023 8:13 AM Dictation Location: [place] [address] Transcribed By: [facility] 09/27/23812 Dictated By: Deborah Vazquez MD 09/27/23803 Signed By: 09/27/23812 Normal [facility] Bacteria [Presence] in Urine by AutomatedOrdered By: Devon Leon on 09-26-2023 Bacteria Auto Ql (U) Rare [HPF] None Seen [facility] Bilirubin Test strip Ql (U)O rdered By: Devon Leon on 09-26-2023 Bilirubin Ql (U) Negative Negative [facility] Color of Urine by AutoOrdere d By: Devon Leon on 09-26-2023 Color (U) Light-yellow Normal Yellow [facility] Comment on above: Order Comment: Name Collection Type:: Clean-Voided Midstream Performed By: #### A DDONUAPLUS, CUU #### [facility] [address] [id number] [place] Dipstick and Microscopicon 0 09-26-2023 Bacteria,Urine Rare Normal None Seen [facility] Comment on above: Order Comment: Name Collection Type:: Clean-Voided Midstream Performed By: #### A DDONUAPLUS, CUU #### [facility] [address] [id number] [place] Bilirubin,Urine Negative Normal Negative [facility] Comment on above: Order Comment: Name Collection Type:: Clean-Voided Midstream Performed By: #### A DDONUAPLUS, CUU #### [address] Glucose Ql (U) Normal Normal Normal [facility] Comment on above: Order Comment: Name Collection Type:: Clean-Voided Midstream Performed By: #### A DDONUAPLUS, CUU #### [place] [id number] [place] Hyaline Casts,Urine None Normal 0-8 [facility] Comment on above: Order Comment: Name Collection Type:: Clean-Voided Midstream Performed By: #### A DDONUAPLUS, CUU #### [address] Mucus,Urine 2+ Critically abnormal [facility] Comment on above: Order Comment: Name Collection Type:: Clean-Voided Midstream Performed By: #### A DDONUAPLUS, CUU #### [place] [id number] [place] Nitrite,Urine Negative Normal Negative [facility] Comment on above: Order Comment: Name Collection Type:: Clean-Voided Midstream Performed By: #### A DDONUAPLUS, CUU #### [address] Occult Blood,Urine 2+ High Negative [facility] Comment on above: Order Comment: Name Collection Type:: Clean-Voided Midstream Result Comment: PERF ORMED BY: [place] [address] PATHOLOGIST DUTY ENGINEER ALLA OROZCO M.D. Performed By: #### A DDONUAPLUS, CUU #### [place] [id number] [place] Protein,Urine Trace High Negative [facility] Comment on above: Order Comment: Name Collection Type:: Clean-Voided Midstream Performed By: #### A DDONUAPLUS, CUU #### [place] [id number] [place] RBC,Urine 3-4 Normal 0-4 [facility] Comment on above: Order Comment: Name Collection Type:: Clean-Voided Midstream Performed By: #### A DDONUAPLUS, CUU #### [address] Specificy [place],Urine 1.030 Normal 1.001-1.03 0 [facility] Comment on above: Order Comment: Name Collection Type:: Clean-Voided Midstream Performed By: #### A DDONUAPLUS, CUU #### [address] Sperm,Urine 5-9 High 0-2 [facility] Comment on above: Order Comment: Name Collection Type:: Clean-Voided Midstream Result Comment: PERF ORMED BY: [place] [address] PATHOLOGIST DUTY ENGINEER ALLA OROZCO M.D. Performed By: #### A DDONUAPLUS, CUU #### [address] Squamous Epithelial Cell,Urine 5-9 High 0-2 [facility] Comment on above: Order Comment: Name Collection Type:: Clean-Voided Midstream Performed By: #### A DDONUAPLUS, CUU #### [address] Urobilinogen,Urine Normal Normal Normal [facility] Comment on above: Order Comment: Name Collection Type:: Clean-Voided Midstream Performed By: #### A DDONUAPLUS, CUU #### [address] WBC,Urine 5-9 High 0-4 [facility] Comment on above: Order Comment: Name Collection Type:: Clean-Voided Midstream Performed By: #### A DDONUAPLUS, CUU #### [address] Epithelial cells.squamous [# /area] in Urine sediment by Automated countOrdered By: Devon Leon on 09-26-2023 Epithelial cells.squamous Auto (Urine sed) [#/Area] 5-9 [HPF] High 0-2 [facility] Erythrocytes [#/area] in Uri ne sediment by Automated countOrdered By: Devon Leon on 09-26-2023 RBC Auto (Urine sed) [#/Area] 3-4 [HPF] 0-4 [facility] Glucose [Mass/volume] in Uri ne by Test stripOrdered By: Devon Leon on 09-26-2023 Glucose Test strip (U) [Mass/Vol] Normal mg/dL Normal [facility] Hemoglobin Test strip Ql (U) Ordered By: Devon Leon on 09-26-2023 Hemoglobin Ql (U) 2+ High Negative [facility] Hyaline casts [#/area] in Ur ine sediment by Automated countOrdered By: Devon Leon on 09-26-2023 Hyaline casts Auto (Urine sed) [#/Area] None [LPF] 0-8 [facility] Ketones [Presence] in Urine by Test stripOrdered By: Devon Leon on 09-26-2023 Ketones Ql (U) Negative Normal Negative [facility] Comment on above: Order Comment: Name Collection Type:: Clean-Voided Midstream Performed By: #### A DDONUAPLUS, CUU #### [facility] [address] [place] [address] [place] Leukocyte esterase [Presence ] in Urine by Test stripOrdered By: Devon Leon on 09-26-2023 Leukocyte esterase Test strip Ql (U) 2+ High Negative [facility] Comment on above: Order Comment: Name Collection Type:: Clean-Voided Midstream Performed By: #### A DDONUAPLUS, CUU #### [facility] [address] [place] [address] [place] Leukocytes [#/area] in Urine sediment by Automated countOrdered By: Devon Leon on 09-26-2023 WBC Auto (Urine sed) [#/Area] 5-9 [HPF] High 0-4 [facility] Mucus [Presence] in Urine by AutomatedOrdered By: Devon Leon on 09-26-2023 Mucus Auto Ql (U) 2+ [LPF] Abnormal [facility] Nitrite Test strip Ql (U)Ord ered By: Devon Leon on 09-26-2023 Nitrite Ql (U) Negative Negative [facility] Protein Test strip (U) [Mass /Vol]Ordered By: Devon Leon on 09-26-2023 Protein (U) [Mass/Vol] Trace mg/dL High Negative F [facility] Specific gravity Test strip (U) [Rel density]Ordered By: Devon Leon on 09-26-2023 Specific gravity (U) [Rel density] 1.030 1.001-1.03 0 [facility] Spermatozoa [#/area] in Urin e sediment by Automated countOrdered By: Devon Leon on 09-26-2023 S[place] Auto (Urine sed) [#/Area] 5-9 [HPF] High 0-2 [facility] Urine Cultureon 09-26-2023 Bacteria identified Cx Nom (U) ORGANISM: Strep agalactiae - (group b) (O:STRAGA) [place] Count 75,000 PERFORMED BY: [place] [address] PATHOLOGIST DUTY ENGINEER ALLA OROZCO M.D. Normal [facility] Comment on above: Performed By: #### A DDONUAPLUS, CUU #### [facility] [address] [place] [address] Urine appearanceOrdered By: Devon Leon on 09-26-2023 Appearance (U) Clear Normal Clear [facility] Comment on above: Order Comment: Name Collection Type:: Clean-Voided Midstream Performed By: #### A DDONUAPLUS, CUU #### [facility] [address] [place] [address] Urine culture routineOrdered By: Devon Leon on 09-26-2023 Bacteria identified Cx Nom (U) Strep agalactiae - (group b) Abnormal [facility] Urobilinogen Test strip (U) [Mass/Vol]Ordered By: Devon Leon on 09-26-2023 Urobilinogen (U) [Mass/Vol] Normal mg/dL Normal [facility] pH of Urine by Test stripOrd ered By: Devon Leon on 09-26-2023 pH (U) 6.0 [pH] Normal 5.0-9.0 [facility] Comment on above: Order Comment: Name Collection Type:: Clean-Voided Midstream Performed By: #### A DDONUAPLUS, CUU #### [facility] [address] Alanine aminotransferase [En zymatic activity/volume] in Serum or PlasmaOrdered By: Nataly Toure on 08-03-2023 ALT [Catalytic activity/Vol] 14 U/L Normal 7-52 [facility] Comment on above: Order Comment: Reaso n for Exam Hypothyroidism, unspecified type;High blood triglycerides Reason for Exam Iron deficiency Reason for Exam High blood triglycerides Reason for Exam Hypothyroidism, unspecified type Performed By: #### G TT3 #### [facility] [address] [place] [address] [place] Albumin [Mass/volume] in Ser um or Plasma by Bromocresol green (BCG) dye binding methoOrdered By: Nataly Toure on 08-03-2023 Albumin BCG dye [Mass/Vol] 4.4 g/dL 3.5-5.7 [facility] Alkaline phosphatase [Enzyma tic activity/volume] in Serum or PlasmaOrdered By: Nataly Toure on 08-03-2023 ALP [Catalytic activity/Vol] 85 U/L Normal 34-104 [facility] Comment on above: Order Comment: Reaso n for Exam Hypothyroidism, unspecified type;High blood triglycerides Reason for Exam Iron deficiency Reason for Exam High blood triglycerides Reason for Exam Hypothyroidism, unspecified type Performed By: #### G TT3 #### [facility] [address] [place] [address] [place] Aspartate aminotransferase [ Enzymatic activity/volume] in Serum or PlasmaOrdered By: Nataly Toure on 08-03-2023 AST [Catalytic activity/Vol] 13 U/L Normal 13-39 [facility] Comment on above: Order Comment: Reaso n for Exam Hypothyroidism, unspecified type;High blood triglycerides Reason for Exam Iron deficiency Reason for Exam High blood triglycerides Reason for Exam Hypothyroidism, unspecified type Performed By: #### G TT3 #### [facility] [address] [place] [address] [place] Automated basophil %Ordered By: Nataly Toure on 08-03-2023 Basophils/100 WBC (Bld) 0.4 % Normal . [facility] Comment on above: Order Comment: Reaso n for Exam Iron deficiency Performed By: #### G TT3 #### [facility] [address] [place] [address] Automated basophil countOrde red By: Nataly Toure on 08-03-2023 Basophils (Bld) [#/Vol] 0.0 10*3/uL Normal 0.0-0.2 [facility] Comment on above: Order Comment: Reaso n for Exam Iron deficiency Result Comment: PERF ORMED BY: [place] [address] PATHOLOGIST DUTY ENGINEER ALLA OROZCO M.D. Performed By: #### G TT3 #### [address] Automated blood monocyte cou ntOrdered By: Nataly Jerniganc on 08-03-2023 Monocytes (Bld) [#/Vol] 0.4 10*3/uL Normal 0.0-0.8 [facility] Comment on above: Order Comment: Reaso n for Exam Iron deficiency Performed By: #### G TT3 #### [facility] [address] [place] [address] Automated eosinophil %Ordere d By: Nataly Jerniganc on 08-03-2023 Eosinophils/100 WBC (Bld) 0.5 % Normal . [facility] Comment on above: Order Comment: Reaso n for Exam Iron deficiency Performed By: #### G TT3 #### [address] Automated eosinophil countOr dered By: Nataly Delonc on 08-03-2023 Eosinophils (Bld) [#/Vol] 0.0 10*3/uL Normal 0.0-0.45 [facility] Comment on above: Order Comment: Reaso n for Exam Iron deficiency Performed By: #### G TT3 #### [address] Automated monocyte %Ordered By: Nataly Jerniganc on 06-18-2024 Monocytes/100 WBC (Bld) 5.4 % Normal . [facility] Comment on above: Order Comment: Reaso n for Exam Iron deficiency Performed By: #### G TT3 #### [facility] [address] Automated neutrophil %Ordere d By: Nataly Toure on 08-03-2023 Neutrophils/100 WBC (Bld) 70.9 % Normal . [facility] Comment on above: Order Comment: Reaso n for Exam Iron deficiency Performed By: #### G TT3 #### [facility] [address] Bilirubin.total [Mass/volume ] in Serum or PlasmaOrdered By: Nataly Toure on 08-03-2023 Bilirubin [Mass/Vol] 0.5 mg/dL Normal 0.3-1.0 [facility] Comment on above: Order Comment: Reaso n for Exam Hypothyroidism, unspecified type;High blood triglycerides Reason for Exam Iron deficiency Reason for Exam High blood triglycerides Reason for Exam Hypothyroidism, unspecified type Performed By: #### G TT3 #### [facility] [address] Calcium [Mass/volume] in Ser um or PlasmaOrdered By: Nataly Toure on 08-03-2023 Calcium [Mass/Vol] 9.5 mg/dL Normal 8.6-10.3 [facility] Comment on above: Order Comment: Reaso n for Exam Hypothyroidism, unspecified type;High blood triglycerides Reason for Exam Iron deficiency Reason for Exam High blood triglycerides Reason for Exam Hypothyroidism, unspecified type Performed By: #### G TT3 #### [facility] [address] [id number] [facility] Carbon dioxide, total [Moles /volume] in Serum or PlasmaOrdered By: Nataly Toure on 08-03-2023 CO2 [Moles/Vol] 27.2 mmol/L Normal 21.0-31.0 [facility] Comment on above: Order Comment: Reaso n for Exam Hypothyroidism, unspecified type;High blood triglycerides Reason for Exam Iron deficiency Reason for Exam High blood triglycerides Reason for Exam Hypothyroidism, unspecified type Performed By: #### G TT3 #### [facility] [address] [id number] [place] Chloride [Moles/volume] in S rosa or PlasmaOrdered By: Nataly Toure on 08-03-2023 Chloride [Moles/Vol] 105 mmol/L Normal 98-107 [facility] Comment on above: Order Comment: Reaso n for Exam Hypothyroidism, unspecified type;High blood triglycerides Reason for Exam Iron deficiency Reason for Exam High blood triglycerides Reason for Exam Hypothyroidism, unspecified type Performed By: #### G TT3 #### [facility] [address] [place] [address] [place] Cholesterol [Mass/volume] in Serum or PlasmaOrdered By: Nataly Toure on 08-03-2023 Cholesterol [Mass/Vol] 159 mg/dL Normal 140-200 [facility] Comment on above: Chol less than [...] risk Performed By: #### G TT3 #### [facility] [address] [place] [address] [facility] Cholesterol in LDL Calc [Mas s/Vol]Ordered By: Nataly Toure on 08-03-2023 Cholesterol in LDL [Mass/Vol] 82 mg/dL 0-100 [facility] Comment on above: LDL ATP III CLASSIFI CATIONLDL less than 100 mg/dL OptimalLDL 100-129 mg/dL Near or above optimalLDL 130-159 mg/dL Borderline highLDL 160-189 mg/dL HighLDL greater than 189 mg/dL Very high Cholesterol in VLDL Calc [Ma ss/Vol]Ordered By: Nataly Toure on 08-03-2023 Cholesterol in VLDL [Mass/Vol] 28 mg/dL [facility] Complete Blood Count Auto Di ffon 08-03-2023 Mean Corpuscular HGB Conc 33.1 g/dL Normal 32.0-35.0 [facility] Comment on above: Order Comment: Reaso n for Exam Iron deficiency Performed By: #### G TT3 #### [address] NRBC% 0.2 /100{WBC} Normal 0-0.5 [facility] Comment on above: Order Comment: Reaso n for Exam Iron deficiency Performed By: #### G TT3 #### [address] Comprehensive Metabolic Pane marco 08-03-2023 Albumin [Mass/Vol] 4.4 g/dL Normal 3.5-5.7 [facility] Comment on above: Order Comment: Reaso n for Exam Hypothyroidism, unspecified type;High blood triglycerides Reason for Exam Iron deficiency Reason for Exam High blood triglycerides Reason for Exam Hypothyroidism, unspecified type Performed By: #### G TT3 #### [address] GFR/1.73 sq M.predicted MDRD (S/P/Bld) [Vol rate/Area] mL/min/{1.73_m2} Normal [facility] Comment on above: Order Comment: Reaso n for Exam Hypothyroidism, unspecified type;High blood triglycerides Reason for Exam Iron deficiency Reason for Exam High blood triglycerides Reason for Exam Hypothyroidism, unspecified type Performed By: #### G TT3 #### [address] Creatinine [Mass/volume] in Serum or PlasmaOrdered By: Nataly Toure on 08-03-2023 Creatinine [Mass/Vol] 0.78 mg/dL Normal 0.60-1.20 [facility] Comment on above: Order Comment: Reaso n for Exam Hypothyroidism, unspecified type;High blood triglycerides Reason for Exam Iron deficiency Reason for Exam High blood triglycerides Reason for Exam Hypothyroidism, unspecified type Performed By: #### G TT3 #### [address] Erythrocyte distribution wid th [Ratio] by Automated countOrdered By: Nataly Toure on 08-03-2023 Erythrocyte distribution width (RBC) [Ratio] 14.3 % Normal 11.9-15.3 [facility] Comment on above: Order Comment: Reaso n for Exam Iron deficiency Performed By: #### G TT3 #### [facility] [address] Erythrocytes [#/volume] in B lood by Automated countOrdered By: Nataly Toure on 08-03-2023 RBC (Bld) [#/Vol] 4.72 10*6/uL Normal 3.60-5.[address] [facility] Comment on above: Order Comment: Reaso n for Exam Iron deficiency Performed By: #### G TT3 #### [facility] [address] [place] [address] [place] Glucose [Mass/volume] in Ser um or PlasmaOrdered By: Nataly Toure on 08-03-2023 Glucose [Mass/Vol] 82 mg/dL Normal 70-100 [facility] Comment on above: ADA recommended refe rence [...] for Exam Hypothyroidism, unspecified type Result Comment: [place] om Glucose Reference Range is dependent on time and content of last meal. Glucose of more than 200 mg/dL in a nonstressed, ambulatory subject supports the diagnosis of Diabetes Mellitus. ADA recommended reference range Performed By: #### G TT3 #### [facility] [address] [place] [address] [place] Hematocrit [Volume Fraction] of Blood by Automated countOrdered By: Nataly Toure on 08-03-2023 Hematocrit (Bld) [Volume fraction] 36.8 % Normal 34.0-46.4 [facility] Comment on above: Order Comment: Reaso n for Exam Iron deficiency Performed By: #### G TT3 #### [facility] [address] [place] [address] [place] Hemoglobin [Mass/volume] in BloodOrdered By: Nataly Toure on 08-03-2023 Hemoglobin (Bld) [Mass/Vol] 12.2 g/dL Normal 11.8-15.4 [facility] Comment on above: Order Comment: Reaso n for Exam Iron deficiency Performed By: #### G TT3 #### [address] Insulinon 08-03-2023 Insulin 14.1 u[iU]/mL Normal 2.6-24.9 [facility] Comment on above: Order Comment: Name Collection Type:: Clean-Voided Midstream Result Comment: Perf ormed at: CB - [facility] [address] [id number] Automotive Service Writer: Sam Lopez PhD, Phone: [phone] PERFORMED BY: [place] [address] PATHOLOGIST DUTY ENGINEER ALLA OROZCO M.D. Performed By: #### A JOSE, [facility] #### [address] Iron [Mass/volume] in Serum or PlasmaOrdered By: Nataly Toure on 08-03-2023 Iron [Mass/Vol] 43 ug/dL Low 50-212 [facility] Comment on above: Order Comment: Reaso n for Exam Hypothyroidism, unspecified type;High blood triglycerides Reason for Exam Iron deficiency Reason for Exam High blood triglycerides Reason for Exam Hypothyroidism, unspecified type Performed By: #### G TT3 #### [address] Iron and TIBC Profileon 07-16 % Iron Saturation 11.3 % Low 20-50 [facility] Comment on above: Order Comment: Reaso n for Exam Hypothyroidism, unspecified type;High blood triglycerides Reason for Exam Iron deficiency Reason for Exam High blood triglycerides Reason for Exam Hypothyroidism, unspecified type Performed By: #### G TT3 #### [address] Total Iron Binding Capacity 382 ug/dL Normal 255-450 [facility] Comment on above: Order Comment: Reaso n for Exam Hypothyroidism, unspecified type;High blood triglycerides Reason for Exam Iron deficiency Reason for Exam High blood triglycerides Reason for Exam Hypothyroidism, unspecified type Performed By: #### G TT3 #### [facility] [address] Iron binding capacity [Mass/ volume] in Serum or PlasmaOrdered By: Nataly Toure on 08-03-2023 Iron binding capacity [Mass/Vol] 382 ug/dL 255-450 [facility] Iron saturation [Mass Fracti on] in Serum or PlasmaOrdered By: Nataly Toure on 08-03-2023 Iron saturation [Mass fraction] 11.3 % Low 20-50 [facility] Leukocytes [#/volume] correc kee for nucleated erythrocytes in Blood by Automated counOrdered By: Nataly Toure on 08-03-2023 WBC corrected for nucl RBC Auto (Bld) [#/Vol] 7.2 10*3/uL 3.8-11.6 [facility] Leukocytes [#/volume] in Blo od by Automated countOrdered By: Nataly Toure on 08-03-2023 WBC (Bld) [#/Vol] 7.2 10*3/uL Normal 3.8-11.6 [facility] Comment on above: Order Comment: Reaso n for Exam Iron deficiency Performed By: #### G TT3 #### [facility] [address] Lipid Panelon 08-03-2023 LDL Cholesterol,Calculated 82 mg/dL Normal 0-100 [facility] Comment on above: Order Comment: [...] high Performed By: #### G TT3 #### [facility] [address] Triglyceride w/Reflex 140 mg/dL Normal 0-149 [facility] Comment on above: Order Comment: [...] method. Performed By: #### G TT3 #### [address] VLDL CHOLESTEROL 28 mg/dL Normal [facility] Comment on above: Order Comment: Reaso n for Exam Hypothyroidism, unspecified type;High blood triglycerides Reason for Exam Iron deficiency Reason for Exam High blood triglycerides Reason for Exam Hypothyroidism, unspecified type Performed By: #### G TT3 #### [address] Lymphocytes [#/volume] in Bl ood by Automated countOrdered By: Nataly Toure on 08-03-2023 Lymphocytes (Bld) [#/Vol] 1.6 10*3/uL Normal 1.00-4.8 [facility] Comment on above: Order Comment: Reaso n for Exam Iron deficiency Performed By: #### G TT3 #### [place] [id number] [place] Lymphocytes/100 leukocytes i n Blood by Automated countOrdered By: Nataly Toure on 08-03-2023 Lymphocytes/100 WBC (Bld) 22.8 % Normal . [facility] Comment on above: Order Comment: Reaso n for Exam Iron deficiency Performed By: #### G TT3 #### [place] [id number] [place] MCH [Entitic mass] by Automa kee countOrdered By: Nataly Toure on 08-03-2023 MCH (RBC) [Entitic mass] 25.8 pg Normal 24.7-34.3 [facility] Comment on above: Order Comment: Reaso n for Exam Iron deficiency Performed By: #### G TT3 #### [place] [id number] [place] MCHC Auto (RBC) [Mass/Vol]Or dered By: Nataly Toure on 08-03-2023 MCHC (RBC) [Mass/Vol] 33.1 g/dL 32.0-35.0 [facility] MCV [Entitic volume] by Auto mated countOrdered By: Nataly Toure on 08-03-2023 MCV (RBC) [Entitic vol] 78.0 fL Low 80-100 [facility] Comment on above: Order Comment: Reaso n for Exam Iron deficiency Performed By: #### G TT3 #### [address] Neutrophils [#/volume] in Bl ood by Automated countOrdered By: Nataly Toure on 08-03-2023 Neutrophils (Bld) [#/Vol] 5.1 10*3/uL Normal 1.8-7.7 [facility] Comment on above: Order Comment: Reaso n for Exam Iron deficiency Performed By: #### G TT3 #### [facility] [facility] [address] [place] [address] No Panel InformationOrdered By: Nataly Toure on 08-03-2023 Estimated GFR (CKD-EPI) > 60.0 mL/Min [facility] Creatinine Clearance (Chem N/A [facility] Nucleated erythrocytes [Pres ence] in Blood by Automated countOrdered By: Nataly Toure on 08-03-2023 Nucleated RBC Auto Ql (Bld) 0.2 /100{WBC} 0-0.5 [facility] Platelet mean volume [Entiti c volume] in Blood by Automated countOrdered By: Nataly Toure on 08-03-2023 Platelet mean volume (Bld) [Entitic vol] 9.2 fL Normal 6.3-10.7 [facility] Comment on above: Order Comment: Reaso n for Exam Iron deficiency Performed By: #### G TT3 #### [address] Platelets [#/volume] in Bloo d by Automated countOrdered By: Nataly Toure on 08-03-2023 Platelets (Bld) [#/Vol] 260 10*3/uL Normal 150-450 [facility] Comment on above: Order Comment: Reaso n for Exam Iron deficiency Performed By: #### G TT3 #### [facility] [address] [place] [id number] [facility] Potassium [Moles/volume] in Serum or PlasmaOrdered By: Nataly Toure on 08-03-2023 Potassium [Moles/Vol] 3.6 mmol/L Normal 3.5-5.1 [facility] Comment on above: Order Comment: Reaso n for Exam Hypothyroidism, unspecified type;High blood triglycerides Reason for Exam Iron deficiency Reason for Exam High blood triglycerides Reason for Exam Hypothyroidism, unspecified type Performed By: #### G TT3 #### [facility] [address] Protein [Mass/volume] in Ser um or PlasmaOrdered By: Nataly Toure on 08-03-2023 Protein [Mass/Vol] 7.2 g/dL Normal 6.4-8.9 [facility] Comment on above: Order Comment: Reaso n for Exam Hypothyroidism, unspecified type;High blood triglycerides Reason for Exam Iron deficiency Reason for Exam High blood triglycerides Reason for Exam Hypothyroidism, unspecified type Performed By: #### G TT3 #### [facility] [address] Serum globulin measurement b y calculation (mass/volume)Ordered By: Nataly Toure on 08-03-2023 Globulin (S) [Mass/Vol] 2.8 g/dL [facility] Comment on above: Order Comment: Reaso n for Exam Hypothyroidism, unspecified type;High blood triglycerides Reason for Exam Iron deficiency Reason for Exam High blood triglycerides Reason for Exam Hypothyroidism, unspecified type Performed By: #### G TT3 #### [facility] [address] [place] [id number] [place] Serum or plasma albumin/glob ulin mass ratioOrdered By: Nataly Toure on 08-03-2023 Albumin/Globulin [Mass ratio] 1.6 {ratio} [facility] Comment on above: Order Comment: Reaso n for Exam Hypothyroidism, unspecified type;High blood triglycerides Reason for Exam Iron deficiency Reason for Exam High blood triglycerides Reason for Exam Hypothyroidism, unspecified type Performed By: #### G TT3 #### [facility] [address] Serum or plasma anion gap de terminationOrdered By: Nataly Toure on 08-03-2023 Anion gap [Moles/Vol] 11.4 mmol/L Normal 6.0-15.0 [facility] Comment on above: Order Comment: Reaso n for Exam Hypothyroidism, unspecified type;High blood triglycerides Reason for Exam Iron deficiency Reason for Exam High blood triglycerides Reason for Exam Hypothyroidism, unspecified type Performed By: #### G TT3 #### [facility] [address] Serum or plasma high density lipoprotein (HDL) cholesterol measurementOrdered By: Nataly Toure on 08-03-2023 Cholesterol in HDL [Mass/Vol] 49 mg/dL Normal 23-92 [facility] Comment on above: HDL CHOL ATP-III CLA [...] HIGH Performed By: #### G TT3 #### [facility] [address] Serum or plasma insulin nikita urement (units/volume)Ordered By: Nataly Toure on 08-03-2023 Insulin Qn 14.1 u[iU]/mL 2.6-24.9 [facility] Comment on above: Performed at: [place] [id number] Director: Sam Lopez PhD, Phone: [phone] Serum or plasma total choles terol/high density lipoprotein (HDL) cholesterol mass ratOrdered By: Nataly Toure on 08-03-2023 Cholesterol.total/Chol esterol in HDL [Mass ratio] 3.2 {ratio} Normal <5.0 [facility] Comment on above: Order Comment: Reaso n for Exam Hypothyroidism, unspecified type;High blood triglycerides Reason for Exam Iron deficiency Reason for Exam High blood triglycerides Reason for Exam Hypothyroidism, unspecified type Performed By: #### G TT3 #### [facility] [address] [place] [address] Sodium [Moles/volume] in Ser um or PlasmaOrdered By: Nataly Toure on 08-03-2023 Sodium [Moles/Vol] 140 mmol/L Normal 136-145 [facility] Comment on above: Order Comment: Reaso n for Exam Hypothyroidism, unspecified type;High blood triglycerides Reason for Exam Iron deficiency Reason for Exam High blood triglycerides Reason for Exam Hypothyroidism, unspecified type Performed By: #### G TT3 #### [facility] [address] [place] [address] Thyroid Stim Hormone w/Rflxo n 08-03-2023 Thyroid Stim Hormone w/Rflx 3.20 u[iU]/mL Normal 0.45-5.33 [facility] Comment on above: Order Comment: Reaso n for Exam Hypothyroidism, unspecified type;High blood triglycerides Reason for Exam Iron deficiency Reason for Exam High blood triglycerides Reason for Exam Hypothyroidism, unspecified type Result Comment: PERF ORMED BY: [place] [address] PATHOLOGIST DUTY ENGINEER ALLA OROZCO M.D. Performed By: #### G TT3 #### [facility] [address] [place] [address] Thyrotropin [Units/volume] i n Serum or PlasmaOrdered By: Nataly Toure on 08-03-2023 TSH Qn 3.20 m[IU]/L 0.45-5.33 [facility] Transferrin [Mass/volume] in Serum or PlasmaOrdered By: Nataly Toure on 08-03-2023 Transferrin [Mass/Vol] 273 mg/dL Normal 203-362 [facility] Comment on above: Order Comment: Reaso n for Exam Hypothyroidism, unspecified type;High blood triglycerides Reason for Exam Iron deficiency Reason for Exam High blood triglycerides Reason for Exam Hypothyroidism, unspecified type Performed By: #### G TT3 #### [facility] [address] Triglyceride [Mass/volume] i n Serum or PlasmaOrdered By: Nataly Toure on 08-03-2023 Triglyceride [Mass/Vol] 140 mg/dL 0-149 [facility] Comment on above: TRIG ATP III CLASSIF ICATIONTRIG less than 150 mg/dL NormalTRIG 150-199 mg/dL Borderline highTRIG 200-500 mg/dL High TRIG greater than 500 mg/dL Very highStandard traceable to the Center for Disease Conrtrol and Prevention (CDC) test method. Urea nitrogen [Mass/volume] in Serum or PlasmaOrdered By: Nataly Toure on 08-03-2023 Urea nitrogen [Mass/Vol] 10 mg/dL Normal 7-25 [facility] Comment on above: Order Comment: Reaso n for Exam Hypothyroidism, unspecified type;High blood triglycerides Reason for Exam Iron deficiency Reason for Exam High blood triglycerides Reason for Exam Hypothyroidism, unspecified type Performed By: #### G TT3 #### [address] Complete Blood Count Auto Di ffon 04-15-2023 Basophils (Bld) [#/Vol] 0.0 10*3/uL Normal 0.0-0.2 [facility] Comment on above: Order Comment: Reaso n for Exam Iron deficiency Result Comment: PERF ORMED BY: [place] [address] PATHOLOGIST DUTY ENGINEER ALLA OROZCO M.D. Performed By: #### C BC #### [address] #### RPR W RFX #### [facility] , Basophils/100 WBC (Bld) 0.5 % Normal . [facility] Comment on above: Order Comment: Reaso n for Exam Iron deficiency Performed By: #### C BC #### [place] [address] [place] #### RPR W RFX #### [facility] , Eosinophils (Bld) [#/Vol] 0.2 10*3/uL Normal 0.0-0.45 [facility] Comment on above: Order Comment: Reaso n for Exam Iron deficiency Performed By: #### C BC #### [address] #### RPR W RFX #### [facility] , Eosinophils/100 WBC (Bld) 3.8 % Normal . [facility] Comment on above: Order Comment: Reaso n for Exam Iron deficiency Performed By: #### C BC #### [address] #### RPR W RFX #### [facility] , Erythrocyte distribution width (RBC) [Ratio] 16.9 % High 11.9-15.3 [facility] Comment on above: Order Comment: Reaso n for Exam Iron deficiency Performed By: #### C BC #### [address] #### RPR W RFX #### [facility] , Hematocrit (Bld) [Volume fraction] 36.2 % Normal 34.0-46.4 [facility] Comment on above: Order Comment: Reaso n for Exam Iron deficiency Performed By: #### C BC #### [address] #### RPR W RFX #### [facility] , Hemoglobin (Bld) [Mass/Vol] 12.0 g/dL Normal 11.8-15.4 [facility] Comment on above: Order Comment: Reaso n for Exam Iron deficiency Performed By: #### C BC #### [place] [address] [place] #### RPR W RFX #### [facility] , Lymphocytes (Bld) [#/Vol] 1.6 10*3/uL Normal 1.00-4.8 [facility] Comment on above: Order Comment: Reaso n for Exam Iron deficiency Performed By: #### C BC #### [address] #### RPR W RFX #### [facility] , Lymphocytes/100 WBC (Bld) 28.1 % Normal . [facility] Comment on above: Order Comment: Reaso n for Exam Iron deficiency Performed By: #### C BC #### [address] #### RPR W RFX #### [facility] , MCH (RBC) [Entitic mass] 25.7 pg Normal 24.7-34.3 [facility] Comment on above: Order Comment: Reaso n for Exam Iron deficiency Performed By: #### C BC #### [address] #### RPR W RFX #### [facility] , MCV (RBC) [Entitic vol] 77.7 fL Low 80-100 [facility] Comment on above: Order Comment: Reaso n for Exam Iron deficiency Performed By: #### C BC #### [address] #### RPR W RFX #### [facility] , Mean Corpuscular HGB Conc 33.1 g/dL Normal 32.0-35.0 [facility] Comment on above: Order Comment: Reaso n for Exam Iron deficiency Performed By: #### C BC #### [facility] [address] [place] [address] #### RPR W RFX #### [facility] , Monocytes (Bld) [#/Vol] 0.5 10*3/uL Normal 0.0-0.8 [facility] Comment on above: Order Comment: Reaso n for Exam Iron deficiency Performed By: #### C BC #### [facility] [address] [place] [address] [place] #### RPR W RFX #### [facility] , Monocytes/100 WBC (Bld) 9.0 % Normal . [facility] Comment on above: Order Comment: Reaso n for Exam Iron deficiency Performed By: #### C BC #### [address] #### RPR W RFX #### [facility] , Neutrophils (Bld) [#/Vol] 3.3 10*3/uL Normal 1.8-7.7 [facility] Comment on above: Order Comment: Reaso n for Exam Iron deficiency Performed By: #### C BC #### [address] #### RPR W RFX #### [facility] , Neutrophils/100 WBC (Bld) 58.6 % Normal . [facility] Comment on above: Order Comment: Reaso n for Exam Iron deficiency Performed By: #### C BC #### [address] #### RPR W RFX #### [facility] , NRBC% 0.1 /100{WBC} Normal 0-0.5 [facility] Comment on above: Order Comment: Reaso n for Exam Iron deficiency Performed By: #### C BC #### [address] #### RPR W RFX #### [facility] , Platelet mean volume (Bld) [Entitic vol] 9.1 fL Normal 6.3-10.7 [facility] Comment on above: Order Comment: Reaso n for Exam Iron deficiency Performed By: #### C BC #### [facility] [address] [place] [address] [place] #### RPR W RFX #### [facility] , Platelets (Bld) [#/Vol] 220 10*3/uL Normal 150-450 [facility] Comment on above: Order Comment: Reaso n for Exam Iron deficiency Performed By: #### C BC #### [facility] [address] [place] [address] #### RPR W RFX #### [facility] , RBC (Bld) [#/Vol] 4.66 10*6/uL Normal 3.60-5.00 [facility] Comment on above: Order Comment: Reaso n for Exam Iron deficiency Performed By: #### C BC #### [facility] [address] [place] [address] [place] #### RPR W RFX #### [facility] , WBC (Bld) [#/Vol] 5.6 10*3/uL Normal 3.8-11.6 [facility] Comment on above: Order Comment: Reaso n for Exam Iron deficiency Performed By: #### C BC #### [facility] [address] [place] [address] #### RPR W RFX #### [facility] , Comprehensive Metabolic Pane marco 04-15-2023 Albumin [Mass/Vol] 4.1 g/dL Normal 3.5-5.7 [facility] Comment on above: Order Comment: Reaso n for Exam Iron deficiency Reason for Exam High blood triglycerides Performed By: #### C BC #### [facility] [address] [place] [address] #### RPR W RFX #### [facility] , Albumin/Globulin [Mass ratio] 1.4 {ratio} Normal [facility] Comment on above: Order Comment: Reaso n for Exam Iron deficiency Reason for Exam High blood triglycerides Performed By: #### C BC #### [facility] [address] [place] [address] [place] #### RPR W RFX #### [facility] , ALP [Catalytic activity/Vol] 89 U/L Normal 34-104 [facility] Comment on above: Order Comment: Reaso n for Exam Iron deficiency Reason for Exam High blood triglycerides Performed By: #### C BC #### [facility] [address] [place] [address] #### RPR W RFX #### [facility] , ALT [Catalytic activity/Vol] 14 U/L Normal 7-52 [facility] Comment on above: Order Comment: Reaso n for Exam Iron deficiency Reason for Exam High blood triglycerides Performed By: #### C BC #### [facility] [address] [place] [address] [place] #### RPR W RFX #### [facility] , Anion gap [Moles/Vol] 10.2 mmol/L Normal 6.0-15.0 [facility] Comment on above: Order Comment: Reaso n for Exam Iron deficiency Reason for Exam High blood triglycerides Performed By: #### C BC #### [facility] [address] [place] [address] #### RPR W RFX #### [facility] , AST [Catalytic activity/Vol] 13 U/L Normal 13-39 [facility] Comment on above: Order Comment: Reaso n for Exam Iron deficiency Reason for Exam High blood triglycerides Performed By: #### C BC #### [facility] [address] [place] [address] #### RPR W RFX #### [facility] , Bilirubin [Mass/Vol] 0.3 mg/dL Normal 0.3-1.0 [facility] Comment on above: Order Comment: Reaso n for Exam Iron deficiency Reason for Exam High blood triglycerides Performed By: #### C BC #### [facility] [address] [place] [address] [place] #### RPR W RFX #### [facility] , Calcium [Mass/Vol] 9.0 mg/dL Normal 8.6-10.3 [facility] Comment on above: Order Comment: Reaso n for Exam Iron deficiency Reason for Exam High blood triglycerides Performed By: #### C BC #### [facility] [address] [place] [address] [place] #### RPR W RFX #### [facility] , Chloride [Moles/Vol] 105 mmol/L Normal 98-107 [facility] Comment on above: Order Comment: Reaso n for Exam Iron deficiency Reason for Exam High blood triglycerides Performed By: #### C BC #### [address] #### RPR W RFX #### [facility] , CO2 [Moles/Vol] 27.9 mmol/L Normal 21.0-31.0 [facility] Comment on above: Order Comment: Reaso n for Exam Iron deficiency Reason for Exam High blood triglycerides Performed By: #### C BC #### [address] #### RPR W RFX #### [facility] , Creatinine [Mass/Vol] 0.69 mg/dL Normal 0.60-1.20 [facility] Comment on above: Order Comment: Reaso n for Exam Iron deficiency Reason for Exam High blood triglycerides Performed By: #### C BC #### [address] #### RPR W RFX #### [facility] , GFR/1.73 sq M.predicted MDRD (S/P/Bld) [Vol rate/Area] mL/min/{1.73_m2} Normal [facility] Comment on above: Order Comment: Reaso n for Exam Iron deficiency Reason for Exam High blood triglycerides Performed By: #### C BC #### [facility] [address] [place] [address] [place] #### RPR W RFX #### [facility] , Globulin (S) [Mass/Vol] 2.9 g/dL Normal [facility] Comment on above: Order Comment: Reaso n for Exam Iron deficiency Reason for Exam High blood triglycerides Performed By: #### C BC #### [facility] [address] [place] [address] [place] #### RPR W RFX #### [facility] , Glucose [Mass/Vol] 103 mg/dL High 70-100 [facility] Comment on above: Order Comment: Reaso n for Exam Iron deficiency Reason for Exam High blood triglycerides Result Comment: [place] Glucose Reference Range is dependent on time and content of last meal. Glucose of more than 200 mg/dL in a nonstressed, ambulatory subject supports the diagnosis of Diabetes Mellitus. ADA recommended reference range Performed By: #### C BC #### [facility] [address] [place] [address] #### RPR W RFX #### [facility] , Potassium [Moles/Vol] 4.1 mmol/L Normal 3.5-5.1 [facility] Comment on above: Order Comment: Reaso n for Exam Iron deficiency Reason for Exam High blood triglycerides Performed By: #### C BC #### [address] #### RPR W RFX #### [facility] , Protein [Mass/Vol] 7.0 g/dL Normal 6.4-8.9 [facility] Comment on above: Order Comment: Reaso n for Exam Iron deficiency Reason for Exam High blood triglycerides Performed By: #### C BC #### [address] #### RPR W RFX #### [facility] , Sodium [Moles/Vol] 139 mmol/L Normal 136-145 [facility] Comment on above: Order Comment: Reaso n for Exam Iron deficiency Reason for Exam High blood triglycerides Performed By: #### C BC #### [facility] [address] [place] [address] [place] #### RPR W RFX #### [facility] , Urea nitrogen [Mass/Vol] 12 mg/dL Normal 7-25 [facility] Comment on above: Order Comment: Reaso n for Exam Iron deficiency Reason for Exam High blood triglycerides Performed By: #### C BC #### [facility] [address] [place] [address] [place] #### RPR W RFX #### [facility] , Iron and TIBC Profileon 03-19 % Iron Saturation 8.6 % Low 20-50 [facility] Comment on above: Order Comment: Reaso n for Exam Iron deficiency Reason for Exam High blood triglycerides Performed By: #### C BC #### [facility] [address] [place] [address] [place] #### RPR W RFX #### [facility] , Iron [Mass/Vol] 28 ug/dL Low 50-212 [facility] Comment on above: Order Comment: Reaso n for Exam Iron deficiency Reason for Exam High blood triglycerides Performed By: #### C BC #### [facility] [address] [place] [address] #### RPR W RFX #### [facility] , Total Iron Binding Capacity 326 ug/dL Normal 255-450 [facility] Comment on above: Order Comment: Reaso n for Exam Iron deficiency Reason for Exam High blood triglycerides Performed By: #### C BC #### [facility] [address] [place] [address] [place] #### RPR W RFX #### [facility] , Transferrin [Mass/Vol] 233 mg/dL Normal 203-362 [facility] Comment on above: Order Comment: Reaso n for Exam Iron deficiency Reason for Exam High blood triglycerides Performed By: #### C BC #### [facility] [address] [place] [address] [place] #### RPR W RFX #### [facility] , Lipid Panelon 04-15-2023 Cholesterol [Mass/Vol] 131 mg/dL Low 140-200 [facility] Comment on above: Order Comment: Reaso n for Exam Iron deficiency Reason for Exam High blood triglycerides Result Comment: Chol less than 200 mg/dl low risk Chol 201-239 mg/dl borderline risk Chol 240 mg/dl and greater high risk Performed By: #### C BC #### [facility] [address] [place] [address] #### RPR W RFX #### [facility] , Cholesterol in HDL [Mass/Vol] 39 mg/dL Normal 23-92 [facility] Comment on above: Order Comment: Reaso n for Exam Iron deficiency Reason for Exam High blood triglycerides Result Comment: HDL CHOL ATP-III CLASSIFICATION Cardiovascular Risk HDL > or equal to 60 mg/dL LOW HDL < 40 mg/dL HIGH Performed By: #### C BC #### [address] #### RPR W RFX #### [facility] , Cholesterol.total/Chol esterol in HDL [Mass ratio] 3.4 {ratio} Normal <5.0 [facility] Comment on above: Order Comment: Reaso n for Exam Iron deficiency Reason for Exam High blood triglycerides Result Comment: PERF ORMED BY: [place] [address] PATHOLOGIST DUTY ENGINEER ALLA OROZCO M.D. Performed By: #### C BC #### [facility] [address] [place] [address] #### RPR W RFX #### [facility] , LDL Cholesterol,Calculated 58 mg/dL Normal 0-100 [facility] Comment on above: Order Comment: Reaso n for Exam Iron deficiency Reason for Exam High blood triglycerides Result Comment: LDL ATP III CLASSIFICATION LDL less than 100 mg/dL Optimal LDL 100-129 mg/dL Near or above optimal LDL 130-159 mg/dL Borderline high LDL 160-189 mg/dL High LDL greater than 189 mg/dL Very high Performed By: #### C BC #### [facility] [address] [place] [address] [place] #### RPR W RFX #### [facility] , Triglyceride w/Reflex 170 mg/dL High 0-149 [facility] Comment on above: Order Comment: [...] method. Performed By: #### C BC #### [address] #### RPR W RFX #### [facility] , VLDL CHOLESTEROL 34 mg/dL Normal [facility] Comment on above: Order Comment: Reaso n for Exam Iron deficiency Reason for Exam High blood triglycerides Performed By: #### C BC #### [address] #### RPR W RFX #### [facility] , A1C with Estimated Average G [facility] 03-17-2023 Glucose [Mass/Vol] 114 mg/dL Normal [facility] Comment on above: Order Comment: Name Collection Type:: Clean-Voided Midstream Result Comment: PERF ORMED BY: [place] [address] PATHOLOGIST DUTY ENGINEER ALLA OROZCO M.D. Performed By: #### A DDONUAPLUS, [facility] #### [address] Glucose mean value [Mass/vol ume] in Blood Estimated from glycated hemoglobinOrdered By: Nataly Toure on 03-17-2023 Average glucose Estimated from glycated hemoglobin (Bld) [Mass/Vol] 114 mg/dL [facility] Hemoglobin A1c percentageOrd ered By: Nataly Toure on 03-17-2023 HbA1c (Bld) [Mass fraction] 5.6 % Normal 4.3-5.6 [facility] [facility] Comment on above: Increased risk for d iabetes: 5.7 - 6.4diabetes: >6.4glycemic control for adults with diabetes: <7.0 Order Comment: Name Collection Type:: Clean-Voided Midstream Result Comment: Incr eased risk for diabetes: 5.7 - 6.4 diabetes: >6.4 glycemic control for adults with diabetes: <7.0 Performed By: #### A BERTHAUALETICIA, [facility] #### [address] Insulinon 03-17-2023 Insulin 105.0 u[iU]/mL High 2.6-24.9 [facility] Comment on above: Order Comment: Name Collection Type:: Clean-Voided Midstream Result Comment: Perf ormed at: - [facility] [address] [id number] [employer]otive Service Writer: Sma Lopez PhD, Phone: [phone] PERFORMED BY: [place] [address] PATHOLOGIST DUTY ENGINEER ALLA OROZCO M.D. Performed By: #### A JOSE, [facility] #### [address] Alanine aminotransferase [En zymatic activity/volume] in Serum or PlasmaOrdered By: Nataly Toure on 03-04-2023 ALT [Catalytic activity/Vol] 12 U/L Normal 7-52 [facility] Comment on above: Order Comment: Reaso n for Exam Obesity, unspecified;High blood triglycerides Reason for Exam Iron deficiency Reason for Exam High blood triglycerides Reason for Exam Hypothyroidism, unspecified type Performed By: #### C BC #### [address] #### RPR W RFX #### [facility] , Albumin [Mass/volume] in Ser um or Plasma by Bromocresol green (BCG) dye binding methoOrdered By: Nataly Toure on 03-04-2023 Albumin BCG dye [Mass/Vol] 3.7 g/dL 3.5-5.7 [facility] Alkaline phosphatase [Enzyma tic activity/volume] in Serum or PlasmaOrdered By: Nataly Toure on 03-04-2023 ALP [Catalytic activity/Vol] 100 U/L Normal 34-104 [facility] Comment on above: Order Comment: Reaso n for Exam Obesity, unspecified;High blood triglycerides Reason for Exam Iron deficiency Reason for Exam High blood triglycerides Reason for Exam Hypothyroidism, unspecified type Performed By: #### C BC #### [facility] [address] [place] [address] [place] #### RPR W RFX #### [facility] , Aspartate aminotransferase [ Enzymatic activity/volume] in Serum or PlasmaOrdered By: Nataly Toure on 03-04-2023 AST [Catalytic activity/Vol] 12 U/L Low 13-39 [facility] Comment on above: Order Comment: Reaso n for Exam Obesity, unspecified;High blood triglycerides Reason for Exam Iron deficiency Reason for Exam High blood triglycerides Reason for Exam Hypothyroidism, unspecified type Performed By: #### C BC #### [facility] [address] [place] [address] [place] #### RPR W RFX #### [facility] , Automated basophil %Ordered By: Nataly Toure on 03-04-2023 Basophils/100 WBC (Bld) 1.0 % Normal . [facility] Comment on above: Order Comment: Reaso n for Exam Obesity, unspecified;High blood triglycerides Performed By: #### C BC #### [facility] [address] [place] [address] #### RPR W RFX #### [facility] , Automated basophil countOrde red By: Nataly Toure on 03-04-2023 Basophils (Bld) [#/Vol] 0.1 10*3/uL Normal 0.0-0.2 [facility] Comment on above: Order Comment: Reaso n for Exam Obesity, unspecified;High blood triglycerides Result Comment: PERF ORMED BY: [place] [address] PATHOLOGIST DUTY ENGINEER ALLA OROZCO M.D. Performed By: #### C BC #### [facility] [address] [place] [address] #### RPR W RFX #### [facility] , Automated blood monocyte cou ntOrdered By: Nataly Toure on 03-04-2023 Monocytes (Bld) [#/Vol] 0.6 10*3/uL Normal 0.0-0.8 [facility] Comment on above: Order Comment: Reaso n for Exam Obesity, unspecified;High blood triglycerides Performed By: #### C BC #### [place] [id number] [place] #### RPR W RFX #### [facility] , Automated eosinophil %Ordere d By: Nataly Toure on 03-04-2023 Eosinophils/100 WBC (Bld) 2.0 % Normal . [facility] Comment on above: Order Comment: Reaso n for Exam Obesity, unspecified;High blood triglycerides Performed By: #### C BC #### [place] [id number] [place] #### RPR W RFX #### [facility] , Automated eosinophil countOr dered By: Nataly Toure on 03-04-2023 Eosinophils (Bld) [#/Vol] 0.1 10*3/uL Normal 0.0-0.45 [facility] Comment on above: Order Comment: Reaso n for Exam Obesity, unspecified;High blood triglycerides Performed By: #### C BC #### [place] [id number] [place] #### RPR W RFX #### [facility] , Automated monocyte %Ordered By: Nataly Toure on 03-04-2023 Monocytes/100 WBC (Bld) 9.2 % Normal . [facility] Comment on above: Order Comment: Reaso n for Exam Obesity, unspecified;High blood triglycerides Performed By: #### C BC #### [facility] [address] [place] [address] [place] #### RPR W RFX #### [facility] , Automated neutrophil %Ordere d By: Nataly Toure on 03-04-2023 Neutrophils/100 WBC (Bld) 58.4 % Normal . [facility] Comment on above: Order Comment: Reaso n for Exam Obesity, unspecified;High blood triglycerides Performed By: #### C BC #### [facility] [address] [place] [address] #### RPR W RFX #### [facility] , Bilirubin.total [Mass/volume ] in Serum or PlasmaOrdered By: Nataly Junesic on 03-04-2023 Bilirubin [Mass/Vol] 0.3 mg/dL Normal 0.3-1.0 [facility] Comment on above: Order Comment: Reaso n for Exam Obesity, unspecified;High blood triglycerides Reason for Exam Iron deficiency Reason for Exam High blood triglycerides Reason for Exam Hypothyroidism, unspecified type Performed By: #### C BC #### [facility] [address] [place] [address] #### RPR W RFX #### [facility] , Calcium [Mass/volume] in Ser um or PlasmaOrdered By: Nataly Jerniganc on 03-04-2023 Calcium [Mass/Vol] 8.9 mg/dL Normal 8.6-10.3 [facility] Comment on above: Order Comment: Reaso n for Exam Obesity, unspecified;High blood triglycerides Reason for Exam Iron deficiency Reason for Exam High blood triglycerides Reason for Exam Hypothyroidism, unspecified type Performed By: #### C BC #### [facility] [address] [place] [address] #### RPR W RFX #### [facility] , Carbon dioxide, total [Moles /volume] in Serum or PlasmaOrdered By: Nataly Jerniganc on 03-04-2023 CO2 [Moles/Vol] 26.6 mmol/L Normal 21.0-31.0 [facility] Comment on above: Order Comment: Reaso n for Exam Obesity, unspecified;High blood triglycerides Reason for Exam Iron deficiency Reason for Exam High blood triglycerides Reason for Exam Hypothyroidism, unspecified type Performed By: #### C BC #### [facility] [address] [place] [address] [place] #### RPR W RFX #### [facility] , Chloride [Moles/volume] in S rosa or PlasmaOrdered By: Nataly Toure on 03-04-2023 Chloride [Moles/Vol] 105 mmol/L Normal 98-107 [facility] Comment on above: Order Comment: Reaso n for Exam Obesity, unspecified;High blood triglycerides Reason for Exam Iron deficiency Reason for Exam High blood triglycerides Reason for Exam Hypothyroidism, unspecified type Performed By: #### C BC #### [facility] [address] [place] [address] [place] #### RPR W RFX #### [facility] , Cholesterol [Mass/volume] in Serum or PlasmaOrdered By: Nataly Toure on 03-04-2023 Cholesterol [Mass/Vol] 231 mg/dL High 140-200 [facility] Comment on above: Chol less than [...] risk Performed By: #### C BC #### [facility] [address] [place] [address] [place] #### RPR W RFX #### [facility] , Cholesterol in LDL Calc [Mas s/Vol]Ordered By: Nataly Toure on 03-04-2023 Cholesterol in LDL [Mass/Vol] TNP [facility] Comment on above: Test not performed Cholesterol in LDL [Mass/vol ume] in Serum or PlasmaOrdered By: Nataly Toure on 03-04-2023 Cholesterol in LDL [Mass/Vol] 81 mg/dL 0-100 [facility] Comment on above: LDL ATP III CLASSIFI CATIONLDL less than 100 mg/dL OptimalLDL 100-129 mg/dL Near or above optimalLDL 130-159 mg/dL Borderline highLDL 160-189 mg/dL HighLDL greater than 189 mg/dL Very high Cholesterol in VLDL Calc [Ma ss/Vol]Ordered By: Nataly Toure on 03-04-2023 Cholesterol in VLDL [Mass/Vol] 172 mg/dL [facility] Complete Blood Count Auto Di ffon 03-04-2023 Mean Corpuscular HGB Conc 32.7 g/dL Normal 32.0-35.0 [facility] Comment on above: Order Comment: Reaso n for Exam Obesity, unspecified;High blood triglycerides Performed By: #### C BC #### [facility] [address] [place] [address] [place] #### RPR W RFX #### [facility] , NRBC% 0.1 /100{WBC} Normal 0-0.5 [facility] Comment on above: Order Comment: Reaso n for Exam Obesity, unspecified;High blood triglycerides Performed By: #### C BC #### [facility] [address] [place] [address] [place] #### RPR W RFX #### [facility] , Comprehensive Metabolic Pane marco 03-04-2023 Albumin [Mass/Vol] 3.7 g/dL Normal 3.5-5.7 [facility] Comment on above: Order Comment: Reaso n for Exam Obesity, unspecified;High blood triglycerides Reason for Exam Iron deficiency Reason for Exam High blood triglycerides Reason for Exam Hypothyroidism, unspecified type Performed By: #### C BC #### [facility] [address] [place] [address] [place] #### RPR W RFX #### [facility] , GFR/1.73 sq M.predicted MDRD (S/P/Bld) [Vol rate/Area] mL/min/{1.73_m2} Normal [facility] Comment on above: Order Comment: Reaso n for Exam Obesity, unspecified;High blood triglycerides Reason for Exam Iron deficiency Reason for Exam High blood triglycerides Reason for Exam Hypothyroidism, unspecified type Performed By: #### C BC #### [facility] [address] [place] [address] [place] #### RPR W RFX #### [facility] , Creatinine [Mass/volume] in Serum or PlasmaOrdered By: Nataly Toure on 03-04-2023 Creatinine [Mass/Vol] 0.72 mg/dL Normal 0.60-1.20 [facility] Comment on above: Order Comment: Reaso n for Exam Obesity, unspecified;High blood triglycerides Reason for Exam Iron deficiency Reason for Exam High blood triglycerides Reason for Exam Hypothyroidism, unspecified type Performed By: #### C BC #### [facility] [address] #### RPR W RFX #### [facility] , Erythrocyte distribution wid th [Ratio] by Automated countOrdered By: Nataly Toure on 03-04-2023 Erythrocyte distribution width (RBC) [Ratio] 16.0 % High 11.9-15.3 [facility] Comment on above: Order Comment: Reaso n for Exam Obesity, unspecified;High blood triglycerides Performed By: #### C BC #### [facility] [address] [place] [address] [place] #### RPR W RFX #### [facility] , Erythrocytes [#/volume] in B lood by Automated countOrdered By: Nataly Toure on 03-04-2023 RBC (Bld) [#/Vol] 4.52 10*6/uL Normal 3.60-5.[address] [facility] Comment on above: Order Comment: Reaso n for Exam Obesity, unspecified;High blood triglycerides Performed By: #### C BC #### [facility] [address] [place] [address] [place] #### RPR W RFX #### [facility] , Ferritin [Mass/volume] in Se rum or PlasmaOrdered By: Nataly Toure on 03-04-2023 Ferritin [Mass/Vol] 18.9 ng/mL Normal 11.0-306.[address] [facility] Comment on above: Order Comment: Reaso n for Exam Obesity, unspecified;High blood triglycerides Reason for Exam Iron deficiency Reason for Exam High blood triglycerides Reason for Exam Hypothyroidism, unspecified type Performed By: #### C BC #### [facility] [address] [place] [address] [place] #### RPR W RFX #### [facility] , Glucose [Mass/volume] in Ser um or PlasmaOrdered By: Nataly Toure on 03-04-2023 Glucose [Mass/Vol] 95 mg/dL Normal 70-100 [facility] Comment on above: ADA recommended refe rence [...] for Exam Hypothyroidism, unspecified type Result Comment: [place] om Glucose Reference Range is dependent on time and content of last meal. Glucose of more than 200 mg/dL in a nonstressed, ambulatory subject supports the diagnosis of Diabetes Mellitus. ADA recommended reference range Performed By: #### C BC #### [place] [id number] [place] #### RPR W RFX #### [facility] , Hematocrit [Volume Fraction] of Blood by Automated countOrdered By: Nataly Toure on 03-04-2023 Hematocrit (Bld) [Volume fraction] 34.7 % Normal 34.0-46.4 [facility] Comment on above: Order Comment: Reaso n for Exam Obesity, unspecified;High blood triglycerides Performed By: #### C BC #### [place] [id number] [place] #### RPR W RFX #### [facility] , Hemoglobin [Mass/volume] in BloodOrdered By: Nataly Toure on 03-04-2023 Hemoglobin (Bld) [Mass/Vol] 11.3 g/dL Low 11.8-15.4 [facility] Comment on above: Order Comment: Reaso n for Exam Obesity, unspecified;High blood triglycerides Performed By: #### C BC #### [facility] [address] [place] [address] [place] #### RPR W RFX #### [facility] , Iron [Mass/volume] in Serum or PlasmaOrdered By: Nataly Toure on 03-04-2023 Iron [Mass/Vol] 43 ug/dL Low 50-212 [facility] Comment on above: Order Comment: Reaso n for Exam Obesity, unspecified;High blood triglycerides Reason for Exam Iron deficiency Reason for Exam High blood triglycerides Reason for Exam Hypothyroidism, unspecified type Performed By: #### C BC #### [facility] [address] [place] [address] [place] #### RPR W RFX #### [facility] , Iron and TIBC Profileon 02-15 % Iron Saturation 11.5 % Low 20-50 [facility] Comment on above: Order Comment: Reaso n for Exam Obesity, unspecified;High blood triglycerides Reason for Exam Iron deficiency Reason for Exam High blood triglycerides Reason for Exam Hypothyroidism, unspecified type Performed By: #### C BC #### [facility] [address] [place] [address] [place] #### RPR W RFX #### [facility] , Total Iron Binding Capacity 375 ug/dL Normal 255-450 [facility] Comment on above: Order Comment: Reaso n for Exam Obesity, unspecified;High blood triglycerides Reason for Exam Iron deficiency Reason for Exam High blood triglycerides Reason for Exam Hypothyroidism, unspecified type Performed By: #### C BC #### [facility] [address] [place] [address] [place] #### RPR W RFX #### [facility] , Iron binding capacity [Mass/ volume] in Serum or PlasmaOrdered By: Nataly Toure on 03-04-2023 Iron binding capacity [Mass/Vol] 375 ug/dL 255-450 [facility] Iron saturation [Mass Fracti on] in Serum or PlasmaOrdered By: Nataly Toure on 03-04-2023 Iron saturation [Mass fraction] 11.5 % 20-50 [facility] LDL Cholesterol Measuredon 0 03-04-2023 LDL Cholesterol Measured 81 mg/dL Normal 0-100 [facility] Comment on above: Order Comment: [...] high Performed By: #### C USTB #### [facility] [address] Leukocytes [#/volume] correc kee for nucleated erythrocytes in Blood by Automated counOrdered By: Nataly Toure on 03-04-2023 WBC corrected for nucl RBC Auto (Bld) [#/Vol] 6.2 10*3/uL 3.8-11.6 [facility] Leukocytes [#/volume] in Blo od by Automated countOrdered By: Nataly Toure on 03-04-2023 WBC (Bld) [#/Vol] 6.2 10*3/uL Normal 3.8-11.6 [facility] Comment on above: Order Comment: Reaso n for Exam Obesity, unspecified;High blood triglycerides Performed By: #### C BC #### [facility] [address] [place] [address] [place] #### RPR W RFX #### [facility] , Lipid Panelon 03-04-2023 LDL Cholesterol,Calculated Not performed Normal 0-100 [facility] Comment on above: Order Comment: Reaso n for Exam Obesity, unspecified;High blood triglycerides Reason for Exam Iron deficiency Reason for Exam High blood triglycerides Reason for Exam Hypothyroidism, unspecified type Performed By: #### C BC #### [facility] [address] [place] [address] [place] #### RPR W RFX #### [facility] , Triglyceride w/Reflex 863 mg/dL High 0-149 [facility] Comment on above: Order Comment: [...] resulted. Performed By: #### C BC #### [place] [id number] [place] #### RPR W RFX #### [facility] , VLDL CHOLESTEROL 172 mg/dL Normal [facility] Comment on above: Order Comment: Reaso n for Exam Obesity, unspecified;High blood triglycerides Reason for Exam Iron deficiency Reason for Exam High blood triglycerides Reason for Exam Hypothyroidism, unspecified type Performed By: #### C BC #### [place] [id number] [place] #### RPR W RFX #### [facility] , Lymphocytes [#/volume] in Bl ood by Automated countOrdered By: Nataly Toure on 03-04-2023 Lymphocytes (Bld) [#/Vol] 1.8 10*3/uL Normal 1.00-4.8 [facility] Comment on above: Order Comment: Reaso n for Exam Obesity, unspecified;High blood triglycerides Performed By: #### C BC #### [place] [id number] [place] #### RPR W RFX #### [facility] , Lymphocytes/100 leukocytes i n Blood by Automated countOrdered By: Nataly Toure on 03-04-2023 Lymphocytes/100 WBC (Bld) 29.4 % Normal . [facility] Comment on above: Order Comment: Reaso n for Exam Obesity, unspecified;High blood triglycerides Performed By: #### C BC #### [place] [id number] [place] #### RPR W RFX #### [facility] , MCH [Entitic mass] by Automa kee countOrdered By: Nataly Toure on 03-04-2023 MCH (RBC) [Entitic mass] 25.1 pg Normal 24.7-34.3 [facility] Comment on above: Order Comment: Reaso n for Exam Obesity, unspecified;High blood triglycerides Performed By: #### C BC #### [facility] [address] [place] [address] [place] #### RPR W RFX #### [facility] , MCHC Auto (RBC) [Mass/Vol]Or dered By: Nataly Toure on 03-04-2023 MCHC (RBC) [Mass/Vol] 32.7 g/dL 32.0-35.0 [facility] MCV [Entitic volume] by Auto mated countOrdered By: Nataly Toure on 03-04-2023 MCV (RBC) [Entitic vol] 76.7 fL Low 80-100 [facility] Comment on above: Order Comment: Reaso n for Exam Obesity, unspecified;High blood triglycerides Performed By: #### C BC #### [facility] [address] [place] [address] [place] #### RPR W RFX #### [facility] , Neutrophils [#/volume] in Bl ood by Automated countOrdered By: Nataly Toure on 03-04-2023 Neutrophils (Bld) [#/Vol] 3.6 10*3/uL Normal 1.8-7.7 [facility] Comment on above: Order Comment: Reaso n for Exam Obesity, unspecified;High blood triglycerides Performed By: #### C BC #### [facility] [address] [place] [address] [place] #### RPR W RFX #### [facility] , No Panel InformationOrdered By: Nataly Toure on 03-04-2023 Estimated GFR (CKD-EPI) > 60.0 mL/Min [facility] Creatinine Clearance (Chem N/A [facility] Nucleated erythrocytes [Pres ence] in Blood by Automated countOrdered By: Nataly Toure on 03-04-2023 Nucleated RBC Auto Ql (Bld) 0.1 /100{WBC} 0-0.5 [facility] Platelet mean volume [Entiti c volume] in Blood by Automated countOrdered By: Nataly Toure on 03-04-2023 Platelet mean volume (Bld) [Entitic vol] 9.8 fL Normal 6.3-10.7 [facility] Comment on above: Order Comment: Reaso n for Exam Obesity, unspecified;High blood triglycerides Performed By: #### C BC #### [facility] [address] [place] [address] [place] #### RPR W RFX #### [facility] , Platelets [#/volume] in Bloo d by Automated countOrdered By: Nataly Toure on 03-04-2023 Platelets (Bld) [#/Vol] 217 10*3/uL Normal 150-450 [facility] Comment on above: Order Comment: Reaso n for Exam Obesity, unspecified;High blood triglycerides Performed By: #### C BC #### [facility] [address] [place] [address] [place] #### RPR W RFX #### [facility] , Potassium [Moles/volume] in Serum or PlasmaOrdered By: Nataly Toure on 03-04-2023 Potassium [Moles/Vol] 3.8 mmol/L Normal 3.5-5.1 [facility] Comment on above: Order Comment: Reaso n for Exam Obesity, unspecified;High blood triglycerides Reason for Exam Iron deficiency Reason for Exam High blood triglycerides Reason for Exam Hypothyroidism, unspecified type Performed By: #### C BC #### [facility] [address] [place] [address] [place] #### RPR W RFX #### [facility] , Protein [Mass/volume] in Ser um or PlasmaOrdered By: Nataly Toure on 03-04-2023 Protein [Mass/Vol] 6.4 g/dL Normal 6.4-8.9 [facility] Comment on above: Order Comment: Reaso n for Exam Obesity, unspecified;High blood triglycerides Reason for Exam Iron deficiency Reason for Exam High blood triglycerides Reason for Exam Hypothyroidism, unspecified type Performed By: #### C BC #### [address] #### RPR W RFX #### [facility] , Serum globulin measurement b y calculation (mass/volume)Ordered By: Nataly Toure on 03-04-2023 Globulin (S) [Mass/Vol] 2.7 g/dL [facility] Comment on above: Order Comment: Reaso n for Exam Obesity, unspecified;High blood triglycerides Reason for Exam Iron deficiency Reason for Exam High blood triglycerides Reason for Exam Hypothyroidism, unspecified type Performed By: #### C BC #### [address] #### RPR W RFX #### [facility] , Serum or plasma albumin/glob ulin mass ratioOrdered By: Nataly Toure on 03-04-2023 Albumin/Globulin [Mass ratio] 1.4 {ratio} [facility] Comment on above: Order Comment: Reaso n for Exam Obesity, unspecified;High blood triglycerides Reason for Exam Iron deficiency Reason for Exam High blood triglycerides Reason for Exam Hypothyroidism, unspecified type Performed By: #### C BC #### [place] [id number] [place] #### RPR W RFX #### [facility] , Serum or plasma anion gap de terminationOrdered By: Nataly Toure on 03-04-2023 Anion gap [Moles/Vol] 11.2 mmol/L Normal 6.0-15.0 [facility] Comment on above: Order Comment: Reaso n for Exam Obesity, unspecified;High blood triglycerides Reason for Exam Iron deficiency Reason for Exam High blood triglycerides Reason for Exam Hypothyroidism, unspecified type Performed By: #### C BC #### [address] [place] [address] [place] #### RPR W RFX #### [facility] , Serum or plasma high density lipoprotein (HDL) cholesterol measurementOrdered By: Nataly Toure on 03-04-2023 Cholesterol in HDL [Mass/Vol] 35 mg/dL Normal 23-92 [facility] Comment on above: HDL CHOL ATP-III CLA [...] HIGH Performed By: #### C BC #### [address] #### RPR W RFX #### [facility] , Serum or plasma total choles terol/high density lipoprotein (HDL) cholesterol mass ratOrdered By: Nataly Toure on 03-04-2023 Cholesterol.total/Chol esterol in HDL [Mass ratio] 6.6 {ratio} Normal <5.0 [facility] Comment on above: Order Comment: Reaso n for Exam Obesity, unspecified;High blood triglycerides Reason for Exam Iron deficiency Reason for Exam High blood triglycerides Reason for Exam Hypothyroidism, unspecified type Performed By: #### C BC #### [facility] [address] [place] [address] [place] #### RPR W RFX #### [facility] , Sodium [Moles/volume] in Ser um or PlasmaOrdered By: Nataly Toure on 03-04-2023 Sodium [Moles/Vol] 139 mmol/L Normal 136-145 [facility] Comment on above: Order Comment: Reaso n for Exam Obesity, unspecified;High blood triglycerides Reason for Exam Iron deficiency Reason for Exam High blood triglycerides Reason for Exam Hypothyroidism, unspecified type Performed By: #### C BC #### [address] [address] [place] #### RPR W RFX #### [facility] , Thyroid Stim Hormone w/Rflxo n 03-04-2023 Thyroid Stim Hormone w/Rflx 1.50 u[iU]/mL Normal 0.45-5.33 [facility] Comment on above: Order Comment: Reaso n for Exam Obesity, unspecified;High blood triglycerides Reason for Exam Iron deficiency Reason for Exam High blood triglycerides Reason for Exam Hypothyroidism, unspecified type Result Comment: PERF ORMED BY: [place] [address] PATHOLOGIST DUTY ENGINEER ALLA OROZCO M.D. Performed By: #### C US #### [facility] [address] [place] [address] Thyrotropin [Units/volume] i n Serum or PlasmaOrdered By: Nataly Toure on 03-04-2023 TSH Qn 1.50 m[IU]/L 0.45-5.33 [facility] Transferrin [Mass/volume] in Serum or PlasmaOrdered By: Nataly Toure on 03-04-2023 Transferrin [Mass/Vol] 268 mg/dL Normal 203-362 [facility] Comment on above: Order Comment: Reaso n for Exam Obesity, unspecified;High blood triglycerides Reason for Exam Iron deficiency Reason for Exam High blood triglycerides Reason for Exam Hypothyroidism, unspecified type Performed By: #### C BC #### [facility] [address] [place] [address] #### RPR W RFX #### [facility] , Triglyceride [Mass/volume] i n Serum or PlasmaOrdered By: Nataly Toure on 03-04-2023 Triglyceride [Mass/Vol] 863 mg/dL 0-149 [facility] Comment on above: If the triglyceride result [...] Urea nitrogen [Mass/Vol] 11 mg/dL Normal 7-25 [facility] Comment on above: Order Comment: Reaso n for Exam Obesity, unspecified;High blood triglycerides Reason for Exam Iron deficiency Reason for Exam High blood triglycerides Reason for Exam Hypothyroidism, unspecified type Performed By: #### C BC #### [address] #### RPR W RFX #### [facility] , Vitamin B12 ser/plasOrdered By: Nataly Toure on 03-04-2023 Cobalamin (Vitamin B12) [Mass/Vol] 303 pg/mL Normal 180-914 [facility] Comment on above: Order Comment: Reaso n for Exam Obesity, unspecified;High blood triglycerides Reason for Exam Iron deficiency Reason for Exam High blood triglycerides Reason for Exam Hypothyroidism, unspecified type Performed By: #### C USTB #### [address] Automated basophil %Ordered By: EDE WAY on 02-13-2023 Basophils/100 WBC (Bld) 0.7 % Normal . [facility] Comment on above: Performed By: #### C BC #### [address] #### RPR W RFX #### [facility] , Automated basophil countOrde red By: EDE WAY on 02-13-2023 Basophils (Bld) [#/Vol] 0.1 10*3/uL Normal 0.0-0.2 [facility] Comment on above: Result Comment: PERF ORMED BY: [place] [address] PATHOLOGIST DUTY ENGINEER ALLA OROZCO M.D. Performed By: #### C BC #### [place] [id number] [place] #### RPR W RFX #### [facility] , Automated blood monocyte cou ntOrdered By: EDE WAY on 02-13-2023 Monocytes (Bld) [#/Vol] 0.8 10*3/uL Normal 0.0-0.8 [facility] Comment on above: Performed By: #### C BC #### [place] [id number] [place] #### RPR W RFX #### [facility] , Automated eosinophil %Ordere d By: EDE WAY on 02-13-2023 Eosinophils/100 WBC (Bld) 0.6 % Normal . [facility] Comment on above: Performed By: #### C BC #### [place] [id number] [place] #### RPR W RFX #### [facility] , Automated eosinophil countOr dered By: EDE WAY on 02-13-2023 Eosinophils (Bld) [#/Vol] 0.1 10*3/uL Normal 0.0-0.45 [facility] Comment on above: Performed By: #### C BC #### [facility] [address] [place] [address] [place] #### RPR W RFX #### [facility] , Automated erythrocytes count in urine sediment (number/area)Ordered By: EDE WAY on 02-13-2023 RBC Auto (Urine sed) [#/Area] Innumerable [HPF] 0-4 [facility] Automated leukocytes count i n urine sediment (number/area)Ordered By: EDE WAY on 02-13-2023 WBC Auto (Urine sed) [#/Area] 5-9 [HPF] 0-4 [facility] Automated monocyte %Ordered By: EDE WAY on 02-13-2023 Monocytes/100 WBC (Bld) 8.8 % Normal . [facility] Comment on above: Performed By: #### C BC #### [place] [id number] [place] #### RPR W RFX #### [facility] , Automated neutrophil %Ordere d By: EDE WAY on 02-13-2023 Neutrophils/100 WBC (Bld) 73.7 % Normal . [facility] Comment on above: Performed By: #### C BC #### [address] #### RPR W RFX #### [facility] , Automated urine color determ inationOrdered By: EDE WAY on 02-13-2023 Color (U) Shepherd Critically abnormal Yellow [facility] Comment on above: Order Comment: Name Collection Type:: Voided Performed By: #### C USTB #### [address] Bilirubin Test strip Ql (U)O rdered By: EDE WAY on 02-13-2023 Bilirubin Ql (U) Negative Negative [facility] Complete Blood Count Auto Di ffon 02-13-2023 Mean Corpuscular HGB Conc 33.8 g/dL Normal 32.0-35.0 [facility] Comment on above: Performed By: #### C BC #### [address] #### RPR W RFX #### [facility] , NRBC% 0.1 /100{WBC} Normal 0-0.5 [facility] Comment on above: Performed By: #### C BC #### [address] #### RPR W RFX #### [facility] , Dipstick and Microscopicon 1 Appearance (U) Clear Normal Clear [facility] Comment on above: Order Comment: Name Collection Type:: Voided Performed By: #### C USTB #### [address] Bacteria,Urine None Seen Normal None Seen [facility] Comment on above: Order Comment: Name Collection Type:: Voided Performed By: #### C USTB #### [place] [id number] [place] Bilirubin,Urine Negative Normal Negative [facility] Comment on above: Order Comment: Name Collection Type:: Voided Performed By: #### C USTB #### [place] [id number] [place] Glucose Ql (U) Normal Normal Normal [facility] Comment on above: Order Comment: Name Collection Type:: Voided Performed By: #### C USTB #### [place] [id number] [place] Hyaline Casts,Urine 0-8 Normal 0-8 [facility] Comment on above: Order Comment: Name Collection Type:: Voided Result Comment: PERF ORMED BY: [place] [address] PATHOLOGIST DUTY ENGINEER ALLA OROZCO M.D. Performed By: #### C USTB #### [place] [id number] [place] Ketones Ql (U) Trace High Negative [facility] Comment on above: Order Comment: Name Collection Type:: Voided Performed By: #### C USTB #### [place] [id number] [place] Leukocyte esterase Test strip Ql (U) 1+ High Negative [facility] Comment on above: Order Comment: Name Collection Type:: Voided Performed By: #### C USTB #### [place] [id number] [place] Nitrite,Urine Negative Normal Negative [facility] Comment on above: Order Comment: Name Collection Type:: Voided Performed By: #### C USTB #### [place] [id number] [place] Occult Blood,Urine 3+ High Negative [facility] Comment on above: Order Comment: Name Collection Type:: Voided Result Comment: PERF ORMED BY: [place] [address] PATHOLOGIST DUTY ENGINEER ALLA OROZCO M.D. Performed By: #### C USTB #### [address] RBC,Urine Innumerable High 0-4 [facility] Comment on above: Order Comment: Name Collection Type:: Voided Performed By: #### C USTB #### [address] Specificy [place],Urine 1.015 Normal 1.001-1.03 0 [facility] Comment on above: Order Comment: Name Collection Type:: Voided Performed By: #### C USTB #### [address] Squamous Epithelial Cell,Urine 3-4 High 0-2 [facility] Comment on above: Order Comment: Name Collection Type:: Voided Performed By: #### C USTB #### [address] Urobilinogen,Urine Normal Normal Normal [facility] Comment on above: Order Comment: Name Collection Type:: Voided Performed By: #### C USTB #### [address] WBC,Urine 5-9 High 0-4 [facility] Comment on above: Order Comment: Name Collection Type:: Voided Performed By: #### C USTB #### [address] Erythrocyte distribution wid th [Ratio] by Automated countOrdered By: EDE WAY on 02-13-2023 Erythrocyte distribution width (RBC) [Ratio] 16.2 % High 11.9-15.3 [facility] Comment on above: Performed By: #### C BC #### [address] #### RPR W RFX #### [facility] , Erythrocytes [#/volume] in B lood by Automated countOrdered By: EDE WAY on 02-13-2023 RBC (Bld) [#/Vol] 4.38 10*6/uL Normal 3.60-5.[address] [facility] Comment on above: Performed By: #### C BC #### [facility] [address] [place] [address] [place] #### RPR W RFX #### [facility] , Hematocrit [Volume Fraction] of Blood by Automated countOrdered By: EDE WAY on 02-13-2023 Hematocrit (Bld) [Volume fraction] 33.2 % Low 34.0-46.4 [facility] Comment on above: Performed By: #### C BC #### [facility] [address] [place] [address] [place] #### RPR W RFX #### [facility] , Hemoglobin [Mass/volume] in BloodOrdered By: EDE WAY on 02-13-2023 Hemoglobin (Bld) [Mass/Vol] 11.2 g/dL Low 11.8-15.4 [facility] Comment on above: Performed By: #### C BC #### [facility] [address] [place] [address] #### RPR W RFX #### [facility] , Ketones Auto test strip (U) [Mass/Vol]Ordered By: EDE WAY on 02-13-2023 Ketones (U) [Mass/Vol] Trace Negative [facility] Marco 02-13-2023 L ------ Specimen: [id number] Received: 02/16/23 Status: NICK Forbes Num: [id number] Spec Type: Surgical Subm Dr: EDE WAY MD Tissues: A Placenta - 3rd Trimester (Greater than 28 weeks) (PLACENTA) Procedures: HE/3, Gross/Micro L5 Age/ Patient Sex Location Account Attending Physician Rosette Alba [id number] EDE WAY MD SPEC NUM: [id number] RECD: 02/16/23 STATUS: NICK FORBES NUM: [id number] MAURY: 02/13/23- [facility] DR: EDE WAY MD ENTERED: 02/16/230757 [facility] DR: CARLOS TYPE: Surgical DEPT: S ORDERED: HE/3, Gross/Micro L5 ORDERED: HE/3, Gross/Micro L5 Pathological Diagnosis Placenta, With: Umbilical Cord: Three Vessel Cord, Unremarkable. Membranes: Unremarkable. Placenta: Mature Chorionic Villi, Consistent With Third Trimester Placenta. Focal Parenchymal necrosis is Identified. Clinical Information 35-05/22 IUP, history premature deliveries Gross Description Received [...] less than 5% of the cut surface. [employer] sections are submitted in 3 cassettes as follows: A1 - cord and central disc A2 - membranes and marginal disc Specimen: [id number] Received: 02/16/23 Status: NICK Bourgeoisjes Num: [id number] Spec Type: Surgical Subm Dr: EDE WAY MD Tissues: A Placenta - 3rd Trimester (Greater than 28 weeks) (PLACENTA) Procedures: HE/3, Gross/Micro L5 Patient: Rosette Alba [id number] (Continued) Specimen: [id number] Received: 02/16/23 (Continued) Gross Description (Continued) Signed (signature on file) Ishan Richardson MD 02/17/23 2200 Specimen: [id number] Received: 02/16/23 Status: NICK Forbes Num: [id number] Spec Type: Surgical Subm Dr: EDE WAY MD Tissues: A Placenta - 3rd Trimester (Greater than 28 weeks) (PLACENTA) Procedures: HE/Arianna, Gross/Micro L5 Patient: Rosette Alba [id number] (Continued) Specimen: [id number] Received: 02/16/23 (Continued) Gross Description (Continued) A3 - Central lesional area Microscopic Description Three H E slides reviewed. The microscopic examination confirms the diagnosis. CPT Codes 25460 Specimen: [id number] Received: 02/16/23 Status: NICK Bourgeoisjes Num: [id number] Spec Type: Surgical Subm Dr: EDE WAY MD Tissues: A Placenta - 3rd Trimester (Greater than 28 weeks) (PLACENTA) Procedures: VENKATESH/Arianna, Gross/Micro L5 Patient: Rosette Alba [id number] (Continued) Signed (signature on file) Ishan Richardson MD 02/17/23 1041 Normal [facility] - UrinalysisOrder ed By: EDE WAY on 02-13-2023 Hyaline casts LM Ql (Urine sed) 0-8 [LPF] 0-8 [facility] Leukocytes [#/volume] correc kee for nucleated erythrocytes in Blood by Automated counOrdered By: EDE WAY on 02-13-2023 WBC corrected for nucl RBC Auto (Bld) [#/Vol] 9.1 10*3/uL 3.8-11.6 [facility] Leukocytes [#/volume] in Blo od by Automated countOrdered By: EDE WAY on 02-13-2023 WBC (Bld) [#/Vol] 9.1 10*3/uL Normal 3.8-11.6 [facility] Comment on above: Performed By: #### C BC #### [place] [id number] [place] #### RPR W RFX #### [facility] , Lymphocytes [#/volume] in Bl ood by Automated countOrdered By: EDE WAY on 02-13-2023 Lymphocytes (Bld) [#/Vol] 1.5 10*3/uL Normal 1.00-4.8 [facility] Comment on above: Performed By: #### C BC #### [place] [id number] [place] #### RPR W RFX #### [facility] , Lymphocytes/100 leukocytes i n Blood by Automated countOrdered By: EDE WAY on 02-13-2023 Lymphocytes/100 WBC (Bld) 16.2 % Normal . [facility] Comment on above: Performed By: #### C BC #### [facility] [address] [place] [address] [place] #### RPR W RFX #### [facility] , MCH [Entitic mass] by Automa kee countOrdered By: EDE WAY on 02-13-2023 MCH (RBC) [Entitic mass] 25.6 pg Normal 24.7-34.3 [facility] Comment on above: Performed By: #### C BC #### [facility] [address] [place] [address] #### RPR W RFX #### [facility] , MCHC Auto (RBC) [Mass/Vol]Or dered By: EDE WAY on 02-13-2023 MCHC (RBC) [Mass/Vol] 33.8 g/dL 32.0-35.0 [facility] MCV [Entitic volume] by Auto mated countOrdered By: EDE WAY on 02-13-2023 MCV (RBC) [Entitic vol] 75.7 fL Low 80-100 [facility] Comment on above: Performed By: #### C BC #### [address] #### RPR W RFX #### [facility] , Neutrophils [#/volume] in Bl ood by Automated countOrdered By: EDE WAY on 02-13-2023 Neutrophils (Bld) [#/Vol] 6.7 10*3/uL Normal 1.8-7.7 [facility] Comment on above: Performed By: #### C BC #### [place] [id number] [place] #### RPR W RFX #### [facility] , Nitrite Test strip Ql (U)Ord ered By: EDE WAY on 02-13-2023 Nitrite Ql (U) Negative Negative [facility] Nucleated erythrocytes [Pres ence] in Blood by Automated countOrdered By: EDE WAY on 02-13-2023 Nucleated RBC Auto Ql (Bld) 0.1 /100{WBC} 0-0.5 [facility] Platelet mean volume [Entiti c volume] in Blood by Automated countOrdered By: EDE WAY on 02-13-2023 Platelet mean volume (Bld) [Entitic vol] 8.5 fL Normal 6.3-10.7 [facility] Comment on above: Performed By: #### C BC #### [address] [address] [place] #### RPR W RFX #### [facility] , Platelets [#/volume] in Bloo d by Automated countOrdered By: EDE WAY on 02-13-2023 Platelets (Bld) [#/Vol] 178 10*3/uL Normal 150-450 [facility] Comment on above: Performed By: #### C BC #### [facility] [address] [place] [address] #### RPR W RFX #### [facility] , RPR w/rfx to Quant TP Abson 02-13-2023 RPR, Rfx Quant RPR Non-Reactive Normal Non Reactive [facility] Comment on above: Result Comment: Perf ormed at: CB - [facility] [address] [id number] Automotive Service Writer: Sam Lopez PhD, Phone: [phone] PERFORMED BY: [place] [address] PATHOLOGIST DUTY ENGINEER ALLA OROZCO M.D. Performed By: #### C BC #### [facility] [address] [place] [address] #### RPR W RFX #### [facility] , Reagin Ab [Presence] in Seru m by RPROrdered By: DEE WAY on 02-13-2023 Reagin Ab RPR Ql (S) Non-Reactive Non Reactive [facility] Comment on above: Performed at: CB - [facility] [address] [id number] Director: Sam Lopez PhD, Phone: [phone] Specific gravity Auto test s trip (U) [Rel density]Ordered By: EDE WAY on 02-13-2023 Specific gravity (U) [Rel density] 1.015 1.001-1.03 0 [facility] Squamous epithelial cells de tection in urine sediment by light microscopyOrdered By: EDE WAY on 02-13-2023 Epithelial cells.squamous LM Ql (Urine sed) 3-4 [HPF] 0-2 [facility] Urine Cultureon 02-13-2023 Bacteria identified Cx Nom (U) No Growth 2 Days PERFORMED BY: [place] [address] PATHOLOGIST DUTY ENGINEER ALLA OROZCO M.D. Normal [facility] Comment on above: Performed By: #### C USTB #### [facility] [address] [place] [address] Urine bacteria detection by automated methodOrdered By: EDE WAY on 02-13-2023 Bacteria Auto Ql (U) None seen None Seen [facility] Urine clarity by refractomet ry automatedOrdered By: EDE WAY on 02-13-2023 Clarity Refractometry automated (U) Clear Clear [facility] Urine culture routineOrdered By: EDE WAY on 02-13-2023 Bacteria identified Cx Nom (U) No Growth 2 Days [facility] Urine glucose measurement by automated test strip (mass/volume)Ordered By: EDE WAY on 02-13-2023 Glucose Auto test strip (U) [Mass/Vol] Normal mg/dL Normal [facility] Urine hemoglobin detection b y automated test stripOrdered By: EDE WAY on 02-13-2023 Hemoglobin Auto test strip Ql (U) 3+ Negative [facility] Urine leukocyte esterase det ection by automated test stripOrdered By: EDE WAY on 02-13-2023 Leukocyte esterase Auto test strip Ql (U) 1+ Negative [facility] Urine pH measurement by auto mated test stripOrdered By: EDE WAY on 02-13-2023 pH (U) 6.5 [pH] Normal 5.0-9.0 [facility] Comment on above: Order Comment: Name Collection Type:: Voided Performed By: #### C USTB #### [facility] [address] [place] [address] Urine protein measurement by automated test strip (mass/volume)Ordered By: EDE WAY on 02-13-2023 Protein (U) [Mass/Vol] 30 mg/dL High Negative [facility] Comment on above: Order Comment: Name Collection Type:: Voided Performed By: #### C USTB #### [facility] [address] [place] [address] Urobilinogen Auto test strip (U) [Mass/Vol]Ordered By: EDE WAY on 02-13-2023 Urobilinogen (U) [Mass/Vol] Normal mg/dL Normal [facility] Amphetamine Screen Ql (U)Ord ered By: Radha Molina on 02-01-2023 Amphetamines Ql (U) Negative Negative [facility] Automated erythrocytes count in urine sediment (number/area)Ordered By: Radha Molina on 02-01-2023 RBC Auto (Urine sed) [#/Area] 3-4 [HPF] 0-4 [facility] Automated leukocytes count i n urine sediment (number/area)Ordered By: Radha Molina on 02-01-2023 WBC Auto (Urine sed) [#/Area] 10-19 [HPF] 0-4 [facility] Automated urine color determ inationOrdered By: Radha Molina on 02-01-2023 Color (U) Yellow Normal Yellow [facility] Comment on above: Order Comment: Name Collection Type:: Clean-Voided Midstream Performed By: #### C USTB #### [facility] [address] [place] [address] Automated urine sediment esteban cium oxalate crystal count by microscopy (number/high powOrdered By: Radha Molina on 02-01-2023 Calcium oxalate crystals LM.HPF (Urine sed) [#/Area] 3+ [HPF] [facility] Barbiturates [Presence] in U rine by Screen methodOrdered By: Radha Molina on 02-01-2023 Barbiturates Screen Ql (U) Negative Negative [facility] Benzodiazepines Screen Ql (U )Ordered By: Radha Molina on 02-01-2023 Benzodiazepines Ql (U) Negative [facility] Benzoylecgonine [Presence] i n Urine by Screen methodOrdered By: Radha Molina on 02-01-2023 Benzoylecgonine Screen Ql (U) Negative Negative [facility] Bilirubin Test strip Ql (U)O rdered By: Radha Molina on 02-01-2023 Bilirubin Ql (U) Negative Negative [facility] Dipstick and Microscopicon 1 04-04-2022 Appearance (U) Cloudy Critically abnormal Clear [facility] Comment on above: Order Comment: Name Collection Type:: Clean-Voided Midstream Performed By: #### C USTB #### [facility] [address] [place] [address] [place] Bacteria,Urine 1+ High None Seen [facility] Comment on above: Order Comment: Name Collection Type:: Clean-Voided Midstream Performed By: #### C USTB #### [facility] [address] [place] [address] [place] Bilirubin,Urine Negative Normal Negative [facility] Comment on above: Order Comment: Name Collection Type:: Clean-Voided Midstream Performed By: #### C USTB #### [place] [id number] [place] Calcium Oxalate Crystals,Urine 3+ Normal [facility] Comment on above: Order Comment: Name Collection Type:: Clean-Voided Midstream Performed By: #### C USTB #### [place] [id number] [place] Glucose Ql (U) Normal Normal Normal [facility] Comment on above: Order Comment: Name Collection Type:: Clean-Voided Midstream Performed By: #### C USTB #### [place] [id number] [place] Hyaline Casts,Urine 0-8 Normal 0-8 [facility] Comment on above: Order Comment: Name Collection Type:: Clean-Voided Midstream Result Comment: PERF ORMED BY: [place] [address] PATHOLOGIST DUTY ENGINEER ALAL OROZCO M.D. Performed By: #### C USTB #### [place] [id number] [place] Ketones Ql (U) Trace High Negative [facility] Comment on above: Order Comment: Name Collection Type:: Clean-Voided Midstream Performed By: #### C USTB #### [address] Leukocyte esterase Test strip Ql (U) 2+ High Negative [facility] Comment on above: Order Comment: Name Collection Type:: Clean-Voided Midstream Performed By: #### C USTB #### [place] [id number] [place] Nitrite,Urine Negative Normal Negative [facility] Comment on above: Order Comment: Name Collection Type:: Clean-Voided Midstream Performed By: #### C USTB #### [address] Occult Blood,Urine Negative Normal Negative [facility] Comment on above: Order Comment: Name Collection Type:: Clean-Voided Midstream Result Comment: PERF ORMED BY: [place] [address] PATHOLOGIST DUTY ENGINEER ALLA OROZCO M.D. Performed By: #### C USTB #### [address] Othe Crystals,Urine None Seen Normal [facility] [facility] Comment on above: Order Comment: Name Collection Type:: Clean-Voided Midstream Performed By: #### C USTB #### [address] Protein,Urine Trace High Negative [facility] Comment on above: Order Comment: Name Collection Type:: Clean-Voided Midstream Performed By: #### C USTB #### [address] RBC,Urine 3-4 Normal 0-4 [facility] Comment on above: Order Comment: Name Collection Type:: Clean-Voided Midstream Performed By: #### C USTB #### [address] Specificy [place],Urine 1.025 Normal 1.001-1.03 0 [facility] Comment on above: Order Comment: Name Collection Type:: Clean-Voided Midstream Performed By: #### C USTB #### [address] [place] [address] [place] Squamous Epithelial Cell,Urine 10-19 High 0-2 [facility] Comment on above: Order Comment: Name Collection Type:: Clean-Voided Midstream Performed By: #### C USTB #### [facility] [address] [place] [address] [place] Urobilinogen,Urine Normal Normal Normal [facility] Comment on above: Order Comment: Name Collection Type:: Clean-Voided Midstream Performed By: #### C USTB #### [place] [id number] [place] WBC,Urine 10-19 High 0-4 [facility] Comment on above: Order Comment: Name Collection Type:: Clean-Voided Midstream Performed By: #### C USTB #### [address] Ketones Auto test strip (U) [Mass/Vol]Ordered By: Radha Molina on 02-01-2023 Ketones (U) [Mass/Vol] Trace Negative [facility] - UrinalysisOrder ed By: Radha Molina on 02-01-2023 Hyaline casts LM Ql (Urine sed) 0-8 [LPF] 0-8 [facility] Nitrite Test strip Ql (U)Ord ered By: Radha Molina on 02-01-2023 Nitrite Ql (U) Negative Negative [facility] OB Urine Drug Screen (NO THC )on 02-01-2023 Amphetamine Screen,Urine Negative Normal Negative [facility] Comment on above: Performed By: #### C USTB #### [place] [id number] [place] Barbiturate Screen,Urine Negative Normal Negative [facility] Comment on above: Performed By: #### C USTB #### [place] [id number] [place] Benzodiazepines Screen,Urine Negative Normal Negative [facility] Comment on above: Performed By: #### C USTB #### [place] [id number] [place] Cocaine Screen,Urine Negative Normal Negative [facility] Comment on above: Performed By: #### C USTB #### [address] Opiate Screen,Urine Negative Normal Negative [facility] Comment on above: Performed By: #### C USTB #### [address] Phencyclidine Screen, Urine Negative Normal Negative [facility] Comment on above: Result Comment: Thes e are unconfirmed results and should not be used for legal purposes. Drug Cut-Off Concentration: AMPH 1000 ng/mL FAVIOLA 200 ng/mL THA 200 ng/mL COCM 300 ng/mL OP 300 ng/mL PCP 25 ng/mL PERFORMED BY: [place] [address] PATHOLOGIST DUTY ENGINEER ALLA OROZCO M.D. Performed By: #### C USTB #### [address] Opiates [Presence] in Urine by Screen methodOrdered By: Radha Molina on 02-01-2023 Opiates Screen Ql (U) Negative Negative [facility] Phencyclidine Screen Ql (U)O rdered By: Radha Molina on 02-01-2023 Phencyclidine Ql (U) Negative Negative [facility] Comment on above: These are unconfirme d results and should not be used for legal purposes. Drug Cut-Off Concentration: AMPH 1000 ng/mL FAVIOLA 200 ng/mL THA 200 ng/mL COCM 300 ng/mL OP 300 ng/mL PCP 25 ng/mL Protein Auto test strip (U) [Mass/Vol]Ordered By: Radha Molina on 02-01-2023 Protein (U) [Mass/Vol] Trace mg/dL Negative [facility] Specific gravity Auto test s trip (U) [Rel density]Ordered By: Radha Molina on 02-01-2023 Specific gravity (U) [Rel density] 1.025 1.001-1.03 0 [facility] Squamous epithelial cells de tection in urine sediment by light microscopyOrdered By: Radha Molina on 02-01-2023 Epithelial cells.squamous LM Ql (Urine sed) 10-19 [HPF] 0-2 [facility] Urine Cultureon 02-01-2023 Bacteria identified Cx Nom (U) <9,000 colonies/ml mixed bacterial skin contaminants 2 Days PERFORMED BY: [place] [address] PATHOLOGIST DUTY ENGINEER ALLA OROZCO M.D. Normal [facility] Comment on above: Performed By: #### C USTB #### [facility] [address] [place] [address] Urine bacteria detection by automated methodOrdered By: Radha Molina on 02-01-2023 Bacteria Auto Ql (U) 1+ None Seen [facility] Urine clarity by refractomet ry automatedOrdered By: Radha Molina on 02-01-2023 Clarity Refractometry automated (U) Cloudy Clear [facility] Urine culture routineOrdered By: Radha Molina on 02-01-2023 Bacteria identified Cx Nom (U) 2 Days [facility] Urine glucose measurement by automated test strip (mass/volume)Ordered By: Radha Molina on 02-01-2023 Glucose Auto test strip (U) [Mass/Vol] Normal mg/dL Normal [facility] Urine hemoglobin detection b y automated test stripOrdered By: Radha Molina on 02-01-2023 Hemoglobin Auto test strip Ql (U) Negative Negative [facility] Urine leukocyte esterase det ection by automated test stripOrdered By: Radha Molina on 02-01-2023 Leukocyte esterase Auto test strip Ql (U) 2+ Negative [facility] Urine pH measurement by auto mated test stripOrdered By: Radha Molina on 02-01-2023 pH (U) 6.0 [pH] Normal 5.0-9.0 [facility] Comment on above: Order Comment: Name Collection Type:: Clean-Voided Midstream Performed By: #### C USTB #### [address] Urine sediment crystal ident ification by light microscopyOrdered By: Radha Molina on 02-01-2023 Crystals LM Nom (Urine sed) None seen [HPF] [facility] Urobilinogen Auto test strip (U) [Mass/Vol]Ordered By: Radha Molina on 02-01-2023 Urobilinogen (U) [Mass/Vol] Normal mg/dL Normal [facility] Amphetamine Screen Ql (U)Ord ered By: MARY KAY CANTU on 01-30-2023 Amphetamines Ql (U) Negative Negative [facility] Automated erythrocytes count in urine sediment (number/area)Ordered By: MARY KAY CANTU on 01-30-2023 RBC Auto (Urine sed) [#/Area] 0-1 [HPF] 0-4 [facility] Automated leukocytes count i n urine sediment (number/area)Ordered By: MARY KAY CANTU on 01-30-2023 WBC Auto (Urine sed) [#/Area] 3-4 [HPF] 0-4 [facility] Automated urine color determ inationOrdered By: MARY KAY CANTU on 01-30-2023 Color (U) Yellow Normal Yellow [facility] Comment on above: Order Comment: Name Collection Type:: Clean-Voided Midstream Performed By: #### O BUDS, ADDONUAPLUS #### [address] Barbiturates [Presence] in U rine by Screen methodOrdered By: MARY KAY CANTU on 01-30-2023 Barbiturates Screen Ql (U) Negative Negative [facility] Benzodiazepines Screen Ql (U )Ordered By: MARY KAY CANTU on 01-30-2023 Benzodiazepines Ql (U) Negative Negative [facility] Benzoylecgonine [Presence] i n Urine by Screen methodOrdered By: MARY KAY CANTU on 01-30-2023 Benzoylecgonine Screen Ql (U) Negative Negative [facility] Bilirubin Test strip Ql (U)O rdered By: MARY KAY CANTU on 01-30-2023 Bilirubin Ql (U) Negative Negative [facility] Dipstick and Microscopicon 1 04-02-2022 Appearance (U) Clear Normal Clear [facility] Comment on above: Order Comment: Name Collection Type:: Clean-Voided Midstream Performed By: #### O BUDS, ADDONUAPLUS #### [address] Bacteria,Urine None Seen Normal None Seen [facility] Comment on above: Order Comment: Name Collection Type:: Clean-Voided Midstream Performed By: #### O BUDS, ADDONUAPLUS #### [address] Bilirubin,Urine Negative Normal Negative [facility] Comment on above: Order Comment: Name Collection Type:: Clean-Voided Midstream Performed By: #### O BUDS, ADDONUAPLUS #### [address] Glucose Ql (U) Normal Normal Normal [facility] Comment on above: Order Comment: Name Collection Type:: Clean-Voided Midstream Performed By: #### O BUDS, ADDONUAPLUS #### [place] [id number] [place] Hyaline Casts,Urine 0-8 Normal 0-8 [facility] Comment on above: Order Comment: Name Collection Type:: Clean-Voided Midstream Result Comment: PERF ORMED BY: [place] [address] PATHOLOGIST DUTY ENGINEER ALLA OROZCO M.D. Performed By: #### O BUDS, ADDONUAPLUS #### [address] Ketones Ql (U) Negative Normal Negative [facility] Comment on above: Order Comment: Name Collection Type:: Clean-Voided Midstream Performed By: #### O BUDS, ADDONUAPLUS #### [address] Leukocyte esterase Test strip Ql (U) 2+ High Negative [facility] Comment on above: Order Comment: Name Collection Type:: Clean-Voided Midstream Performed By: #### O BUDS, ADDONUAPLUS #### [address] Nitrite,Urine Negative Normal Negative [facility] Comment on above: Order Comment: Name Collection Type:: Clean-Voided Midstream Performed By: #### O BUDS, ADDONUAPLUS #### [address] Occult Blood,Urine Negative Normal Negative [facility] Comment on above: Order Comment: Name Collection Type:: Clean-Voided Midstream Result Comment: PERF ORMED BY: [place] [address] PATHOLOGIST DUTY ENGINEER ALLA OROZCO M.D. Performed By: #### O BUDS, ADDONUAPLUS #### [address] Protein,Urine Negative Normal Negative [facility] Comment on above: Order Comment: Name Collection Type:: Clean-Voided Midstream Performed By: #### O BUDS, ADDONUAPLUS #### [address] RBC LM.HPF (Urine sed) [#/Area] 0 /[HPF] Normal 0-4 [facility] Comment on above: Order Comment: Name Collection Type:: Clean-Voided Midstream Performed By: #### O BUDS, ADDONUAPLUS #### [address] Specificy [place],Urine 1.017 Normal 1.001-1.03 0 [facility] Comment on above: Order Comment: Name Collection Type:: Clean-Voided Midstream Performed By: #### O BUDS, ADDONUAPLUS #### [address] Squamous Epithelial Cell,Urine 1-2 Normal 0-2 [facility] Comment on above: Order Comment: Name Collection Type:: Clean-Voided Midstream Performed By: #### O BUDS, ADDONUAPLUS #### [address] Urobilinogen,Urine Normal Normal Normal [facility] Comment on above: Order Comment: Name Collection Type:: Clean-Voided Midstream Performed By: #### O BUDS, ADDONUAPLUS #### [place] [id number] [place] WBC,Urine 3-4 Normal 0-4 [facility] Comment on above: Order Comment: Name Collection Type:: Clean-Voided Midstream Performed By: #### O BUDS, ADDONUAPLUS #### [address] Ketones Auto test strip (U) [Mass/Vol]Ordered By: MARY KAY CANTU on 01-30-2023 Ketones (U) [Mass/Vol] Negative Negative [facility] - UrinalysisOrder ed By: MARY KAY CANTU on 01-30-2023 Hyaline casts LM Ql (Urine sed) 0-8 [LPF] 0-8 [facility] Nitrite Test strip Ql (U)Ord ered By: MARY KAY CANTU on 01-30-2023 Nitrite Ql (U) Negative Negative [facility] OB Urine Drug Screen (NO THC )on 01-30-2023 Amphetamine Screen,Urine Negative Normal Negative [facility] Comment on above: Performed By: #### O BUDS, ADDONUAPLUS #### [place] [id number] [place] Barbiturate Screen,Urine Negative Normal Negative [facility] Comment on above: Performed By: #### O BUDS, ADDONUAPLUS #### [place] [id number] [place] Benzodiazepines Screen,Urine Negative Normal Negative [facility] Comment on above: Performed By: #### O BUDS, ADDONUAPLUS #### [place] [id number] [place] Cocaine Screen,Urine Negative Normal Negative [facility] Comment on above: Performed By: #### O BUDS, ADDONUAPLUS #### [place] [id number] [place] Opiate Screen,Urine Negative Normal Negative [facility] Comment on above: Performed By: #### O BUDS, ADDONUAPLUS #### [place] [id number] [place] Phencyclidine Screen, Urine Negative Normal Negative [facility] Comment on above: Result Comment: Thes e are unconfirmed results and should not be used for legal purposes. Drug Cut-Off Concentration: AMPH 1000 ng/mL FAVIOLA 200 ng/mL THA 200 ng/mL COCM 300 ng/mL OP 300 ng/mL PCP 25 ng/mL PERFORMED BY: [place] [address] PATHOLOGIST DUTY ENGINEER ALLA OROZCO M.D. Performed By: #### O BUDS, ADDONUAPLUS #### [address] Opiates [Presence] in Urine by Screen methodOrdered By: MARY KAY CANTU on 01-30-2023 Opiates Screen Ql (U) Negative Negative [facility] Phencyclidine Screen Ql (U)O rdered By: MARY KAY CANTU on 01-30-2023 Phencyclidine Ql (U) Negative Negative [facility] Comment on above: These are unconfirme d results and should not be used for legal purposes. Drug Cut-Off Concentration: AMPH 1000 ng/mL FAVIOLA 200 ng/mL THA 200 ng/mL COCM 300 ng/mL OP 300 ng/mL PCP 25 ng/mL Protein Auto test strip (U) [Mass/Vol]Ordered By: MARY KAY CANTU on 01-30-2023 Protein (U) [Mass/Vol] Negative Negative [facility] Specific gravity Auto test s trip (U) [Rel density]Ordered By: MARY KAY CANTU on 01-30-2023 Specific gravity (U) [Rel density] 1.017 1.001-1.03 0 [facility] Squamous epithelial cells de tection in urine sediment by light microscopyOrdered By: MARY KAY CANTU on 01-30-2023 Epithelial cells.squamous LM Ql (Urine sed) 1-2 [HPF] 0-2 [facility] Urine bacteria detection by automated methodOrdered By: MARY KAY CANTU on 01-30-2023 Bacteria Auto Ql (U) None seen None Seen [facility] Urine clarity by refractomet ry automatedOrdered By: MARY KAY CANTU on 01-30-2023 Clarity Refractometry automated (U) Clear Clear [facility] Urine glucose measurement by automated test strip (mass/volume)Ordered By: MARY KAY CANTU on 01-30-2023 Glucose Auto test strip (U) [Mass/Vol] Normal mg/dL Normal [facility] Urine hemoglobin detection b y automated test stripOrdered By: MARY KAY CANTU on 01-30-2023 Hemoglobin Auto test strip Ql (U) Negative Negative [facility] Urine leukocyte esterase det ection by automated test stripOrdered By: MARY KAY CANTU on 01-30-2023 Leukocyte esterase Auto test strip Ql (U) 2+ Negative [facility] Urine pH measurement by auto mated test stripOrdered By: MARY KAY CANTU on 01-30-2023 pH (U) 6.5 [pH] Normal 5.0-9.0 [facility] Comment on above: Order Comment: Name Collection Type:: Clean-Voided Midstream Performed By: #### O BUDS, ADDONUAPLUS #### [facility] [address] [place] [address] Urobilinogen Auto test strip (U) [Mass/Vol]Ordered By: MARY KAY CANTU on 01-30-2023 Urobilinogen (U) [Mass/Vol] Normal mg/dL Normal [facility] S. agalactiae Org specific c x Ql (Unsp spec)Ordered By: Radha Molina on 01-05-2023 Group B Streptococcus Culture Strep. agalactiae Grp B [facility] Strep B Cultureon 01-05-2023 Strep B Culture ORGANISM: Strep. agalactiae Grp B (O:B) PERFORMED BY: [place] [address] PATHOLOGIST DUTY ENGINEER ALLA OROZCO M.D. Normal [facility] Comment on above: Performed By: #### C USTB #### [place] [id number] [facility] Glucose Tolerance 3 Houron 1 02-21-2022 Glucose Tolerance 3 Hour Normal [facility] Comment on above: Result Comment: FAST ING 88 Col: 12/22/22 0803 1HR GLU 146 Col: 12/22/22 1017 2HR GLU 126 Col: 12/22/22 1117 3HR GLU 144 Col: 12/22/22 1217 NON-GESTATIONAL GESTATIONAL FASTING 70-100 < 92 1 HOUR < 200 < 180 2 HOUR < 140 < 153 3 HOUR NOT ESTABLISHED < 140 PERFORMED BY: [place] [address] PATHOLOGIST DUTY ENGINEER ALLA OROZCO M.D. Performed By: #### G TT3 #### [address] Serum or plasma glucose tole nabeel 3 hours panelOrdered By: Radha Molina on 12-22-2022 Glucose tolerance 3 hours panel See comment [facility] Comment on above: FASTING 88 Col: 09/06 0803 1HR GLU 146 Col: 12/22/22 1017 2HR GLU 126 Col: 12/22/22 1117 3HR GLU 144 Col: 12/22/22 1217 fibronectinOrdered By: Radha Molina on 12-08-2022 Fibronectin. (Vag fld) [Mass/Vol] Negative Negative [facility] Alanine aminotransferase [En zymatic activity/volume] in Serum or PlasmaOrdered By: Nataly Toure on 12-03-2022 ALT [Catalytic activity/Vol] 7 U/L 7-52 [facility] Albumin [Mass/volume] in Ser um or Plasma by Bromocresol green (BCG) dye binding methoOrdered By: Nataly Toure on 12-03-2022 Albumin BCG dye [Mass/Vol] 3.4 g/dL 3.5-5.7 [facility] Alkaline phosphatase [Enzyma tic activity/volume] in Serum or PlasmaOrdered By: Nataly Toure on 12-03-2022 ALP [Catalytic activity/Vol] 79 U/L 34-104 [facility] Aspartate aminotransferase [ Enzymatic activity/volume] in Serum or PlasmaOrdered By: Nataly Toure on 12-03-2022 AST [Catalytic activity/Vol] 9 U/L 13-39 [facility] Basophils Auto (Bld) [#/Vol] Ordered By: Nataly Toure on 12-03-2022 Basophils (Bld) [#/Vol] 0.0 10*3/uL 0.0-0.2 [facility] Basophils/100 WBC Auto (Bld) Ordered By: Nataly Toure on 12-03-2022 Basophils/100 WBC (Bld) 0.1 % . [facility] Bilirubin.total [Mass/volume ] in Serum or PlasmaOrdered By: Nataly Toure on 12-03-2022 Bilirubin [Mass/Vol] 0.2 mg/dL 0.3-1.0 [facility] Calcium [Mass/volume] in Ser um or PlasmaOrdered By: Nataly Toure on 12-03-2022 Calcium [Mass/Vol] 8.9 mg/dL 8.6-10.3 [facility] Carbon dioxide, total [Moles /volume] in Serum or PlasmaOrdered By: Nataly Toure on 12-03-2022 CO2 [Moles/Vol] 21.9 mmol/L 21.0-31.0 [facility] Chloride [Moles/volume] in S rosa or PlasmaOrdered By: Nataly Toure on 12-03-2022 Chloride [Moles/Vol] 102 mmol/L 98-107 [facility] Creatinine [Mass/volume] in Serum or PlasmaOrdered By: Nataly Toure on 12-03-2022 Creatinine [Mass/Vol] 0.49 mg/dL 0.60-1.20 [facility] Eosinophils Auto (Bld) [#/Vo l]Ordered By: Nataly Toure on 12-03-2022 Eosinophils (Bld) [#/Vol] 0.0 10*3/uL 0.0-0.45 [facility] Eosinophils/100 WBC Auto (Bl d)Ordered By: Nataly Toure on 12-03-2022 Eosinophils/100 WBC (Bld) 0.3 % . [facility] Erythrocyte distribution wid th Auto (RBC) [Ratio]Ordered By: Nataly Toure on 12-03-2022 Erythrocyte distribution width (RBC) [Ratio] 14.4 % 11.9-15.3 [facility] Globulin Calc (S) [Mass/Vol] Ordered By: Nataly Toure on 12-03-2022 Globulin (S) [Mass/Vol] 3.3 g/dL [facility] Glucose [Mass/volume] in Ser um or PlasmaOrdered By: Nataly Toure on 12-03-2022 Glucose [Mass/Vol] 94 mg/dL 70-100 [facility] Comment on above: ADA recommended refe rence rangeRandom Glucose Reference Range is dependent on time and content of last meal. Glucose of more than 200 mg/dL in a nonstressed, ambulatory subject supports the diagnosis of Diabetes Mellitus. Hematocrit Auto (Bld) [Volum e fraction]Ordered By: Nataly Toure on 12-03-2022 Hematocrit (Bld) [Volume fraction] 33.8 % 34.0-46.4 [facility] Hemoglobin [Mass/volume] in BloodOrdered By: Nataly Toure on 12-03-2022 Hemoglobin (Bld) [Mass/Vol] 11.0 g/dL 11.8-15.4 [facility] Iron [Mass/volume] in Serum or PlasmaOrdered By: Nataly Toure on 12-03-2022 Iron [Mass/Vol] 38 ug/dL 50-212 [facility] Iron binding capacity [Mass/ volume] in Serum or PlasmaOrdered By: Nataly Toure on 12-03-2022 Iron binding capacity [Mass/Vol] 587 ug/dL 255-450 [facility] Iron saturation [Mass Fracti on] in Serum or PlasmaOrdered By: Nataly Toure on 12-03-2022 Iron saturation [Mass fraction] 6.5 % 20-50 [facility] Leukocytes [#/volume] correc kee for nucleated erythrocytes in Blood by Automated counOrdered By: Nataly Toure on 12-03-2022 WBC corrected for nucl RBC Auto (Bld) [#/Vol] 11.2 10*3/uL 3.8-11.6 [facility] Lymphocytes Auto (Bld) [#/Vo l]Ordered By: Nataly Toure on 12-03-2022 Lymphocytes (Bld) [#/Vol] 1.8 10*3/uL 1.00-4.8 [facility] Lymphocytes/100 WBC Auto (Bl d)Ordered By: Nataly Toure on 12-03-2022 Lymphocytes/100 WBC (Bld) 16.0 % . [facility] MCH Auto (RBC) [Entitic mass ]Ordered By: Nataly Toure on 12-03-2022 MCH (RBC) [Entitic mass] 26.0 pg 24.7-34.3 [facility] MCHC Auto (RBC) [Mass/Vol]Or dered By: Nataly Toure on 12-03-2022 MCHC (RBC) [Mass/Vol] 32.5 g/dL 32.0-35.0 [facility] MCV Auto (RBC) [Entitic vol] Ordered By: Nataly Toure on 12-03-2022 MCV (RBC) [Entitic vol] 80.1 fL 80-100 [facility] Magnesium [Mass/volume] in S rosa or PlasmaOrdered By: Nataly Toure on 12-03-2022 Magnesium [Mass/Vol] 1.7 mg/dL 1.9-2.7 [facility] Monocytes Auto (Bld) [#/Vol] Ordered By: Nataly Toure on 12-03-2022 Monocytes (Bld) [#/Vol] 0.8 10*3/uL 0.0-0.8 [facility] Monocytes/100 WBC Auto (Bld) Ordered By: Nataly Toure on 12-03-2022 Monocytes/100 WBC (Bld) 6.9 % . [facility] Neutrophils Auto (Bld) [#/Vo l]Ordered By: Nataly Toure on 12-03-2022 Neutrophils (Bld) [#/Vol] 8.6 10*3/uL 1.8-7.7 [facility] Neutrophils/100 WBC Auto (Bl d)Ordered By: Nataly Toure on 12-03-2022 Neutrophils/100 WBC (Bld) 76.7 % . [facility] No Panel InformationOrdered By: Nataly Toure on 12-03-2022 Estimated GFR (CKD-EPI) > 60.0 mL/Min [facility] Creatinine Clearance (Chem N/A [facility] Nucleated erythrocytes [Pres ence] in Blood by Automated countOrdered By: Nataly Toure on 12-03-2022 Nucleated RBC Auto Ql (Bld) 0.0 /100{WBC} 0-0.5 [facility] Platelet mean volume Auto (B ld) [Entitic vol]Ordered By: Nataly Toure on 12-03-2022 Platelet mean volume (Bld) [Entitic vol] 9.0 fL 6.3-10.7 [facility] Platelets Auto (Bld) [#/Vol] Ordered By: Nataly Toure on 12-03-2022 Platelets (Bld) [#/Vol] 205 10*3/uL 150-450 [facility] Potassium [Moles/volume] in Serum or PlasmaOrdered By: Nataly Toure on 12-03-2022 Potassium [Moles/Vol] 3.8 mmol/L 3.5-5.1 [facility] Protein [Mass/volume] in Ser um or PlasmaOrdered By: Naatly Toure on 12-03-2022 Protein [Mass/Vol] 6.7 g/dL 6.4-8.9 [facility] RBC Auto (Bld) [#/Vol]Ordere d By: Nataly Toure on 12-03-2022 RBC (Bld) [#/Vol] 4.22 10*6/uL 3.60-5.[address] [facility] Serum or plasma albumin/glob ulin mass ratioOrdered By: Nataly Toure on 12-03-2022 Albumin/Globulin [Mass ratio] 1.0 {ratio} [facility] Serum or plasma anion gap de terminationOrdered By: Nataly Toure on 12-03-2022 Anion gap [Moles/Vol] 17.9 mmol/L 6.0-15.0 [facility] Sodium [Moles/volume] in Ser um or PlasmaOrdered By: Nataly Toure on 12-03-2022 Sodium [Moles/Vol] 138 mmol/L 136-145 [facility] Thyrotropin [Units/volume] i n Serum or PlasmaOrdered By: Nataly Toure on 12-03-2022 TSH Qn 2.65 m[IU]/L 0.45-5.33 [facility] Transferrin [Mass/volume] in Serum or PlasmaOrdered By: Nataly Toure on 12-03-2022 Transferrin [Mass/Vol] 419 mg/dL 203-362 [facility] Urea nitrogen [Mass/volume] in Serum or PlasmaOrdered By: Nataly Toure on 12-03-2022 Urea nitrogen [Mass/Vol] 11 mg/dL 7-25 [facility] WBC Auto (Bld) [#/Vol]Ordere d By: Nataly Toure on 12-03-2022 WBC (Bld) [#/Vol] 11.2 10*3/uL 3.8-11.[address] [facility] Activated partial thrombopla stin time (aPTT) in platelet poor plasma by coagulation aOrdered By: Staci Ortiz on 12-01-2022 aPTT Coag (PPP) [Time] 26.8 s 25.1-36.5 [facility] Comment on above: A hematocrit value g reater than 55% may lead to inaccurate results in coagulation testing. Patients having hematocrit values >55% require a special collection tube for coagulation studies. Please contact the laboratory at [phone] for redraw instructions. Automated erythrocytes count in urine sediment (number/area)Ordered By: Staci Ortiz on 12-01-2022 RBC Auto (Urine sed) [#/Area] 0-1 [HPF] 0-4 [facility] Automated leukocytes count i n urine sediment (number/area)Ordered By: Staci Ortiz on 12-01-2022 WBC Auto (Urine sed) [#/Area] 3-4 [HPF] 0-4 [facility] Basophils Auto (Bld) [#/Vol] Ordered By: Staci Ortiz on 12-01-2022 Basophils (Bld) [#/Vol] 0.0 10*3/uL 0.0-0.2 [facility] Basophils/100 WBC Auto (Bld) Ordered By: Staci Ortiz on 12-01-2022 Basophils/100 WBC (Bld) 0.3 % . [facility] Bilirubin Test strip Ql (U)O rdered By: Staci Ortiz on 12-01-2022 Bilirubin Ql (U) Negative Negative [facility] COVID CepheidOrdered By: Noah huynh Angel on 12-01-2022 SARS-CoV-2 (COVID-19) Ab IA Ql Negative Negative [facility] Comment on above: This is a duplicate Cepheid Xpert Xpress CoV-2/Flu/RSV Plus RNA by RT-PCR result to be used for statistical tracking purpose only. COVID-19 Detected/Not Detect edOrdered By: Staci Ortiz on 12-01-2022 SARS-CoV-2 (COVID-19) RNA SVETLANA+non-probe Ql (Nph) Not detected Not Detecte [facility] Comment on above: This is a duplicate RP2.1 COVID (PCR) result to be used for statistical tracking purpose only. Calcium [Mass/volume] in Ser um or PlasmaOrdered By: Staci Ortiz on 12-01-2022 Calcium [Mass/Vol] 9.1 mg/dL 8.6-10.3 [facility] Carbon dioxide, total [Moles /volume] in Serum or PlasmaOrdered By: Staci Ortiz on 12-01-2022 CO2 [Moles/Vol] 22.4 mmol/L 21.0-31.0 [facility] Chloride [Moles/volume] in S rosa or PlasmaOrdered By: Staci Ortiz on 12-01-2022 Chloride [Moles/Vol] 102 mmol/L 98-107 [facility] Color Auto (U)Ordered By: Elizabeth Ortiz on 12-01-2022 Color (U) Yellow Yellow [facility] Creatinine [Mass/volume] in Serum or PlasmaOrdered By: Staci Ortiz on 12-01-2022 Creatinine [Mass/Vol] 0.51 mg/dL 0.60-1.20 [facility] Eosinophils Auto (Bld) [#/Vo l]Ordered By: Staci Ortiz on 12-01-2022 Eosinophils (Bld) [#/Vol] 0.0 10*3/uL 0.0-0.45 [facility] Eosinophils/100 WBC Auto (Bl d)Ordered By: Staci Ortiz on 12-01-2022 Eosinophils/100 WBC (Bld) 0.4 % . [facility] Erythrocyte distribution wid th Auto (RBC) [Ratio]Ordered By: Staci Ortiz on 12-01-2022 Erythrocyte distribution width (RBC) [Ratio] 14.5 % 11.9-15.3 [facility] Fibrin D-dimer [Presence] in Platelet poor plasma by Latex agglutinationOrdered By: Staci Ortiz on 12-01-2022 Fibrin D-dimer LA Ql (PPP) 231 ng/mL 0-243 [facility] Comment on above: The reference range for [...] coagulation studies. Please contact the laboratory at [phone] for redraw instructions. Glucose [Mass/volume] in Ser um or PlasmaOrdered By: Staci Ortiz on 12-01-2022 Glucose [Mass/Vol] 88 mg/dL 70-100 [facility] Comment on above: ADA recommended refe rence rangeRandom Glucose Reference Range is dependent on time and content of last meal. Glucose of more than 200 mg/dL in a nonstressed, ambulatory subject supports the diagnosis of Diabetes Mellitus. HCG ( test) IA.rapi d Ql (U)Ordered By: Staci Ortiz on 12-01-2022 HCG ( test) Ql (U) Positive [facility] Hematocrit Auto (Bld) [Volum e fraction]Ordered By: Staci Ortiz on 12-01-2022 Hematocrit (Bld) [Volume fraction] 34.2 % 34.0-46.4 [facility] Hemoglobin [Mass/volume] in BloodOrdered By: Staci Ortiz on 12-01-2022 Hemoglobin (Bld) [Mass/Vol] 11.3 g/dL 11.8-15.4 [facility] INR in Platelet poor plasma by Coagulation assayOrdered By: Staci Ortiz on 12-01-2022 INR Coag (PPP) [Relative time] 0.9 {INR} [facility] Comment on above: INR Therapeutic Rang e [...] 12-01-2022 Ketones (U) [Mass/Vol] Negative Negative Fi [facility] - UrinalysisOrder ed By: Staci Ortiz on 12-01-2022 Hyaline casts LM Ql (Urine sed) 0-8 [LPF] 0-8 [facility] Leukocytes [#/volume] correc kee for nucleated erythrocytes in Blood by Automated counOrdered By: Staci Ortiz on 12-01-2022 WBC corrected for nucl RBC Auto (Bld) [#/Vol] 12.1 10*3/uL 3.8-11.6 [facility] Lymphocytes Auto (Bld) [#/Vo l]Ordered By: Staci Ortiz on 12-01-2022 Lymphocytes (Bld) [#/Vol] 1.8 10*3/uL 1.00-4.8 [facility] Lymphocytes/100 WBC Auto (Bl d)Ordered By: Staci Ortiz on 12-01-2022 Lymphocytes/100 WBC (Bld) 14.9 % . [facility] MCH Auto (RBC) [Entitic mass ]Ordered By: Staci Ortiz on 12-01-2022 MCH (RBC) [Entitic mass] 26.4 pg 24.7-34.3 [facility] MCHC Auto (RBC) [Mass/Vol]Or dered By: Staci Ortiz on 12-01-2022 MCHC (RBC) [Mass/Vol] 33.1 g/dL 32.0-35.0 [facility] MCV Auto (RBC) [Entitic vol] Ordered By: Staci Ortiz on 12-01-2022 MCV (RBC) [Entitic vol] 79.7 fL 80-100 [facility] Monocyte distribution width [Entitic volume] in Blood by AutomatedOrdered By: Staci Ortiz on 12-01-2022 Monocyte distribution width Auto (Bld) [Entitic vol] 16.82 % 0.00-20.00 [facility] Monocytes Auto (Bld) [#/Vol] Ordered By: Staci Ortiz on 12-01-2022 Monocytes (Bld) [#/Vol] 0.9 10*3/uL 0.0-0.8 [facility] Monocytes/100 WBC Auto (Bld) Ordered By: Staci Ortiz on 12-01-2022 Monocytes/100 WBC (Bld) 7.6 % . [facility] Natriuretic peptide B [Mass/ Vol]Ordered By: Staci Ortiz on 12-01-2022 Natriuretic peptide B (Bld) [Mass/Vol] 10.0 pg/mL 5-100 [facility] Neutrophils Auto (Bld) [#/Vo l]Ordered By: Staci Ortiz on 12-01-2022 Neutrophils (Bld) [#/Vol] 9.3 10*3/uL 1.8-7.7 [facility] Neutrophils/100 WBC Auto (Bl d)Ordered By: Staci Ortiz on 12-01-2022 Neutrophils/100 WBC (Bld) 76.8 % . [facility] Nitrite Test strip Ql (U)Ord ered By: Staci Ortiz on 12-01-2022 Nitrite Ql (U) Negative Negative [facility] No Panel InformationOrdered By: Staci Ortiz on 12-01-2022 Estimated GFR (CKD-EPI) > 60.0 mL/Min [facility] Creatinine Clearance (Chem 194.78 [facility] Nucleated erythrocytes [Pres ence] in Blood by Automated countOrdered By: Staci Ortiz on 12-01-2022 Nucleated RBC Auto Ql (Bld) 0.0 /100{WBC} 0-0.5 [facility] Platelet mean volume Auto (B ld) [Entitic vol]Ordered By: Staci Ortiz on 12-01-2022 Platelet mean volume (Bld) [Entitic vol] 8.8 fL 6.3-10.7 [facility] Platelets Auto (Bld) [#/Vol] Ordered By: Staci Ortiz on 12-01-2022 Platelets (Bld) [#/Vol] 212 10*3/uL 150-450 [facility] Potassium [Moles/volume] in Serum or PlasmaOrdered By: Staci Ortiz on 12-01-2022 Potassium [Moles/Vol] 3.7 mmol/L 3.5-5.1 [facility] Protein Auto test strip (U) [Mass/Vol]Ordered By: Staci Ortiz on 12-01-2022 Protein (U) [Mass/Vol] Negative Negative [facility] Prothrombin time (PT)Ordered By: Staci Ortiz on 12-01-2022 PT Coag (PPP) [Time] 11.3 s 9.0-12.9 [facility] Comment on above: A hematocrit value g reater than 55% may lead to inaccurate results in coagulation testing. Patients having hematocrit values >55% require a special collection tube for coagulation studies. Please contact the laboratory at [phone] for redraw instructions. RBC Auto (Bld) [#/Vol]Ordere d By: Staci Ortiz on 12-01-2022 RBC (Bld) [#/Vol] 4.29 10*6/uL 3.60-5.[address] [facility] Respiratory pathogens DNA an d RNA panel - Nasopharynx by SVETLANA with non-probe detectionOrdered By: Staci Ortiz on 12-01-2022 Respiratory pathogens DNA and RNA panel SVETLANA+non-probe (Nph) [facility] Respiratory pathogens DNA and RNA panel SVETLANA+non-probe (Nph) [facility] Serum or plasma anion gap de terminationOrdered By: Staci Ortiz on 12-01-2022 Anion gap [Moles/Vol] 13.3 mmol/L 6.0-15.0 [facility] Sodium [Moles/volume] in Ser um or PlasmaOrdered By: Staci Ortiz on 12-01-2022 Sodium [Moles/Vol] 134 mmol/L 136-145 [facility] Specific gravity Auto test s trip (U) [Rel density]Ordered By: Staci Ortiz on 12-01-2022 Specific gravity (U) [Rel density] 1.021 1.001-1.03 0 [facility] Squamous epithelial cells de tection in urine sediment by light microscopyOrdered By: Staci Ortiz on 12-01-2022 Epithelial cells.squamous LM Ql (Urine sed) 5-9 [HPF] 0-2 [facility] Troponin I.cardiac [Mass/vol ume] in Serum or Plasma by Detection limit <= 0.01 ng/Ordered By: Staci Ortiz on 12-01-2022 Troponin I.cardiac DL <= 0.01 ng/mL [Mass/Vol] < 2.3 pg/mL 0.0-15.0 [facility] Urea nitrogen [Mass/volume] in Serum or PlasmaOrdered By: Staci Ortiz on 12-01-2022 Urea nitrogen [Mass/Vol] 9 mg/dL 7-25 [facility] Urine bacteria detection by automated methodOrdered By: Staci Ortiz on 12-01-2022 Bacteria Auto Ql (U) None seen None Seen [facility] Urine clarity by refractomet ry automatedOrdered By: Staci Ortiz on 12-01-2022 Clarity Refractometry automated (U) Cloudy Clear [facility] Urine glucose measurement by automated test strip (mass/volume)Ordered By: Staci Ortiz on 12-01-2022 Glucose Auto test strip (U) [Mass/Vol] Normal mg/dL Normal [facility] Urine hemoglobin detection b y automated test stripOrdered By: Staci Ortiz on 12-01-2022 Hemoglobin Auto test strip Ql (U) Negative Negative [facility] Urine leukocyte esterase det ection by automated test stripOrdered By: Staci Ortiz on 12-01-2022 Leukocyte esterase Auto test strip Ql (U) 1+ Negative [facility] Urobilinogen Auto test strip (U) [Mass/Vol]Ordered By: Staci Ortiz on 12-01-2022 Urobilinogen (U) [Mass/Vol] Normal mg/dL Normal [facility] WBC Auto (Bld) [#/Vol]Ordere d By: Staci Ortiz on 12-01-2022 WBC (Bld) [#/Vol] 12.1 10*3/uL 3.8-11.[address] [facility] pH Auto test strip (U)Ordere d By: Staci Ortiz on 12-01-2022 pH (U) 6.5 [pH] 5.0-9.0 [facility] Amphetamine Screen Ql (U)Ord ered By: TELMA Smith on 11-20-2022 Amphetamines Ql (U) Negative Negative [facility] Barbiturates [Presence] in U rine by Screen methodOrdered By: TELMA Smith on 11-20-2022 Barbiturates Screen Ql (U) Negative Negative [facility] Benzodiazepines Screen Ql (U )Ordered By: TELMA Smith on 11-20-2022 Benzodiazepines Ql (U) Negative Negative [facility] Benzoylecgonine [Presence] i n Urine by Screen methodOrdered By: TELMA Smith on 11-20-2022 Benzoylecgonine Screen Ql (U) Negative Negative [facility] Bilirubin Test strip Ql (U)O rdered By: TELMA Smith on 11-20-2022 Bilirubin Ql (U) Negative Negative [facility] Color Auto (U)Ordered By: MD DESEAN Smith on 11-20-2022 Color (U) Yellow Yellow [facility] Ketones Auto test strip (U) [Mass/Vol]Ordered By: TELMA Smith on 11-20-2022 Ketones (U) [Mass/Vol] Trace Negative [facility] Nitrite Test strip Ql (U)Ord ered By: TELMA Smith on 11-20-2022 Nitrite Ql (U) Negative Negative [facility] Opiates [Presence] in Urine by Screen methodOrdered By: TELMA Smith on 11-20-2022 Opiates Screen Ql (U) Negative Negative [facility] Phencyclidine Screen Ql (U)O rdered By: TELMA Smith on 11-20-2022 Phencyclidine Ql (U) Negative Negative [facility] Comment on above: These are unconfirme d results and should not be used for legal purposes. Drug Cut-Off Concentration: AMPH 1000 ng/mL FAVIOLA 200 ng/mL THA 200 ng/mL COCM 300 ng/mL OP 300 ng/mL PCP 25 ng/mL Protein Auto test strip (U) [Mass/Vol]Ordered By: TELMA Smith on 11-20-2022 Protein (U) [Mass/Vol] Negative Negative [facility] Specific gravity Auto test s trip (U) [Rel density]Ordered By: TELMA Smith on 11-20-2022 Specific gravity (U) [Rel density] 1.025 1.001-1.03 0 [facility] Urine clarity by refractomet ry automatedOrdered By: TELMA Smith on 11-20-2022 Clarity Refractometry automated (U) Clear Clear [facility] Urine glucose measurement by automated test strip (mass/volume)Ordered By: SHELLIE Smith on 11-20-2022 Glucose Auto test strip (U) [Mass/Vol] Normal mg/dL Normal [facility] Urine hemoglobin detection b y automated test stripOrdered By: TELMA Smith on 11-20-2022 Hemoglobin Auto test strip Ql (U) Negative Negative [facility] Urine leukocyte esterase det ection by automated test stripOrdered By: TELMA Smith on 11-20-2022 Leukocyte esterase Auto test strip Ql (U) Negative Negative [facility] Urobilinogen Auto test strip (U) [Mass/Vol]Ordered By: TELMA Smith on 11-20-2022 Urobilinogen (U) [Mass/Vol] Normal mg/dL Normal [facility] pH Auto test strip (U)Ordere d By: TELMA Smith on 11-20-2022 pH (U) 6.5 [pH] 5.0-9.0 [facility] Amphetamine Screen Ql (U)Ord ered By: MARY KAY CANTU on 11-19-2022 Amphetamines Ql (U) Negative Negative [facility] Barbiturates [Presence] in U rine by Screen methodOrdered By: MARY KAY CANTU on 11-19-2022 Barbiturates Screen Ql (U) Negative Negative [facility] Benzodiazepines Screen Ql (U )Ordered By: MARY KAY CANTU on 11-19-2022 Benzodiazepines Ql (U) Negative Negative [facility] Benzoylecgonine [Presence] i n Urine by Screen methodOrdered By: MARY KAY CANTU on 11-19-2022 Benzoylecgonine Screen Ql (U) Negative Negative [facility] Bilirubin Test strip Ql (U)O rdered By: MARY KAY CANTU on 11-19-2022 Bilirubin Ql (U) Negative Negative [facility] Color Auto (U)Ordered By: LJ CANTU on 11-19-2022 Color (U) Yellow Yellow [facility] fibronectinOrdered By: MARY KAY CANTU on 11-19-2022 Fibronectin. (Vag fld) [Mass/Vol] Positive Negative [facility] Ketones Auto test strip (U) [Mass/Vol]Ordered By: MARY KAY CANTU on 11-19-2022 Ketones (U) [Mass/Vol] Trace Negative [facility] Nitrite Test strip Ql (U)Ord ered By: MARY KAY CANTU on 11-19-2022 Nitrite Ql (U) Negative Negative [facility] Opiates [Presence] in Urine by Screen methodOrdered By: MARY KAY CANTU on 11-19-2022 Opiates Screen Ql (U) Negative Negative [facility] Phencyclidine Screen Ql (U)O rdered By: MARY KAY CANTU on 11-19-2022 Phencyclidine Ql (U) Negative Negative [facility] Comment on above: These are unconfirme d results and should not be used for legal purposes. Drug Cut-Off Concentration: AMPH 1000 ng/mL FAVIOLA 200 ng/mL THA 200 ng/mL COCM 300 ng/mL OP 300 ng/mL PCP 25 ng/mL Protein Auto test strip (U) [Mass/Vol]Ordered By: MARY KAY CANTU on 11-19-2022 Protein (U) [Mass/Vol] Negative Negative [facility] Specific gravity Auto test s trip (U) [Rel density]Ordered By: MARY KAY CANTU on 11-19-2022 Specific gravity (U) [Rel density] 1.017 1.001-1.03 0 [facility] Urine clarity by refractomet ry automatedOrdered By: MARY KAY CANTU on 11-19-2022 Clarity Refractometry automated (U) Clear Clear [facility] Urine glucose measurement by automated test strip (mass/volume)Ordered By: MARY KAY CANTU on 11-19-2022 Glucose Auto test strip (U) [Mass/Vol] Normal mg/dL Normal [facility] Urine hemoglobin detection b y automated test stripOrdered By: MARY KAY CANTU on 11-19-2022 Hemoglobin Auto test strip Ql (U) Negative Negative [facility] Urine leukocyte esterase det ection by automated test stripOrdered By: MARY KAY CANTU on 11-19-2022 Leukocyte esterase Auto test strip Ql (U) Negative Negative [facility] Urobilinogen Auto test strip (U) [Mass/Vol]Ordered By: MARY KAY CANTU on 11-19-2022 Urobilinogen (U) [Mass/Vol] Normal mg/dL Normal [facility] pH Auto test strip (U)Ordere d By: MARY KAY CANTU on 11-19-2022 pH (U) 7.5 [pH] 5.0-9.0 [facility] US PREG TVon 07-14-2022 US PREG TV [...] PETRA SALCIDO Date: 2022-07-14 00:14 Normal [facility] AMYLASEon 07-13-2022 Amylase [Catalytic activity/Vol] 43 U/L Normal 25-115 [facility] Comment on above: Performed By: #### C BC #### [facility] [address] [place] [address] Dr. Moris Winter CBC AUTO DIFFon 07-13-2022 BASO # 0.0 103/ul Normal 0.0-0.1 [facility] Comment on above: Performed By: #### C BC #### [facility] [address] [place] [address] Dr. Moris Winter Basophils/100 WBC (Bld) 0.2 % Normal 0.2-2.0 [facility] Comment on above: Performed By: #### C BC #### [facility] [address] [place] [address] Dr. Moris Winter EO # 0.1 103/ul Normal 0.0-0.7 [facility] Comment on above: Performed By: #### C BC #### [facility] [address] [place] [address] Dr. Moris Winter Eosinophils/100 WBC (Bld) 1.2 % Normal 0.9-7.0 [facility] Comment on above: Performed By: #### C BC #### [facility] [address] [place] [address] Dr. Moris Winter Erythrocyte distribution width (RBC) [Ratio] 13.8 % Normal 11.0-15.0 [facility] Comment on above: Performed By: #### C BC #### [facility] [address] [place] [address] Dr. Moris Winter Hematocrit (Bld) [Volume fraction] 36.6 % Normal 36.0-48.0 [facility] Comment on above: Performed By: #### C BC #### [facility] [address] [place] [address] Dr. Moris Winter Hemoglobin (Bld) [Mass/Vol] 12.3 g/dL Normal 12.0-16.0 [facility] Comment on above: Performed By: #### C BC #### [facility] [address] [place] [address] Dr. Moris Winter IG # 0.03 10e3/ul Normal 0.00-0.03 [facility] Comment on above: Performed By: #### C BC #### [facility] [address] [place] [address] Dr. Moris Winter IG % 0.3 % Normal 0.0-0.5 [facility] Comment on above: Performed By: #### C BC #### [facility] [address] [place] [address] Dr. Moris Winter LYMPH # 2.1 103/ul Normal 1.2-3.8 [facility] Comment on above: Performed By: #### C BC #### [facility] [address] [place] [address] Dr. Moris Winter Lymphocytes/100 WBC (Bld) 24.3 % Normal 20.5-60.0 [facility] Comment on above: Performed By: #### C BC #### [facility] [address] [place] [address] Dr. Moris Winter MANUAL DIFF REQ NO Normal [facility] Comment on above: Performed By: #### C BC #### [facility] [address] [place] [address] Dr. Moris Winter MCH (RBC) [Entitic mass] 27.5 pg Normal 26.7-34.0 [facility] Comment on above: Performed By: #### C BC #### [facility] [address] [address] [address] Moris Winter MCHC (RBC) [Mass/Vol] 33.6 g/dL Normal 29.9-35.2 [facility] Comment on above: Performed By: #### C BC #### [facility] [address] [address] [address] Moris Winter MCV (RBC) [Entitic vol] 81.7 fL Normal 81.0-99.0 [facility] Comment on above: Performed By: #### C BC #### [facility] [address] [place] [address] Dr. Moris Winter MONO # 0.7 103/ul Normal 0.3-0.8 [facility] Comment on above: Performed By: #### C BC #### [facility] [address] [place] [address] Dr. Moris Winter Monocytes/100 WBC (Bld) 7.8 % Normal 1.7-12.0 [facility] Comment on above: Performed By: #### C BC #### [facility] [address] [place] [address] Dr. Moris Winter NEUT # 5.8 103/ul Normal 1.4-6.5 [facility] Comment on above: Performed By: #### C BC #### [facility] [address] [place] [address] Dr. Moris Winter Neutrophils/100 WBC (Bld) 66.2 % Normal 43.0-75.0 [facility] Comment on above: Performed By: #### C BC #### [facility] [address] [address] [address] Moris Winter Platelet mean volume (Bld) [Entitic vol] 10.2 fL Normal 9.5-13.5 [facility] Comment on above: Performed By: #### C BC #### [facility] [address] [address] [address] Moris Winter PLT 301 103/ul Normal 150-450 [facility] Comment on above: Performed By: #### C BC #### [facility] [address] [place] [address] Dr. Moris Winter RBC 4.48 106/ul Normal 4.20-5.40 [facility] Comment on above: Performed By: #### C BC #### [facility] [address] [place] [address] Dr. Moris Winter WBC 8.7 103/ul Normal 4.0-11.0 [facility] Comment on above: Performed By: #### C BC #### [facility] [address] [place] [address] Dr. Moris Winter ER URINE PROFILEon 3 Bilirubin Ql (U) Negative Normal NEGATIVE [facility] Comment on above: Performed By: #### P REGU #### [facility] [address] [place] [address] Dr. Moris Winter Clarity (U) CLEAR Normal CLEAR [facility] Comment on above: Performed By: #### P REGU #### [facility] [address] [place] [address] Dr. Moris Winter Color (U) LT. YELLOW Normal YELLOW [facility] Comment on above: Performed By: #### P REGU #### [facility] [address] [place] [address] Dr. Moris Winter ERUAHD A micrscopic examina tion will be performed if indicated. Normal [facility] Comment on above: Performed By: #### P REGU #### [facility] [address] [place] [address] Dr. Moris Winter Glucose Ql (U) Negative Normal NEGATIVE [facility] Comment on above: Performed By: #### P REGU #### [facility] [address] [place] [address] Dr. Moris Winter Hemoglobin Ql (U) Negative Normal NEGATIVE [facility] Comment on above: Performed By: #### P REGU #### [facility] [address] [place] [address] Dr. Moris Winter Ketones Ql (U) TRACE Abnormal NEGATIVE [facility] Comment on above: Performed By: #### P REGU #### [facility] [address] [place] [address] Dr. Moris Winter LEUKOCYTES TRACE Abnormal NEGATIVE [facility] Comment on above: Performed By: #### P REGU #### [facility] [address] [place] [address] Dr. Moris Winter Nitrite Ql (U) Negative Normal NEGATIVE [facility] Comment on above: Performed By: #### P REGU #### [facility] [address] [place] [address] Dr. Moris Winter pH (U) 7.0 [pH] Normal 5-9 [facility] Comment on above: Performed By: #### P REGU #### [facility] [address] [place] [address] Dr. Moris Winter SPEC GRAVITY 1.020 Normal 1.005-<=1. 025 [facility] Comment on above: Performed By: #### P REGU #### [facility] [address] [place] [address] Dr. Moris Winter UA PROTEIN Negative Normal NEGATIVE/ TRACE [facility] Comment on above: Performed By: #### P REGU #### [facility] [address] [place] [address] Dr. Moris Winter UR MICRO IND INDICATED Normal [facility] Comment on above: Performed By: #### P REGU #### [facility] [address] [place] [address] Dr. Moris Winter Urobilinogen Qn (U) 0.2 {Marcin'U}/dL Normal 0.2 - 1. 0 [facility] Comment on above: Performed By: #### P REGU #### [facility] [address] [place] [address] Dr. Moris Winter LIPASEon 07-13-2022 Lipase [Catalytic activity/Vol] 204.0 U/L Normal 73.0-393.0 [facility] Comment on above: Performed By: #### C BC #### [facility] [address] [place] [address] Dr. Moris Winter PREG QUANT HCGon 07-13-2022 HCG QUANT 1455 mIU/mL Normal [facility] Comment on above: Performed By: #### P REGU #### [facility] [address] [place] [address] Dr. Moris Winter HCG RANGE SEE BELOW Normal [facility] Comment on above: Result Comment: 5-50 0.2-1 WEEK 50-500 1-2 WEEKS 100-5,000 2-3 WEEKS 500-10,000 3-4 WEEKS 1,000-50,000 4-5 WEEKS 10,000-100,000 5-6 WEEKS 15,000-200,000 6-8 WEEKS 10,000-100,000 2-3 MONTHS Performed By: #### P REGU #### [facility] [address] [place] [address] Dr. Moris Winter URon 07-13-2022 , QUAL Positive Abnormal NEGATIVE [facility] Comment on above: Performed By: #### P REGU #### [facility] [address] [place] [address] Dr. Moris Winter PROF 14(COMP METB)on 023 Albumin [Mass/Vol] 3.3 g/dL Critically low 3.4-5.0 Th [facility] Comment on above: Performed By: #### C BC #### [facility] [address] [place] [address] Dr. Moris Winter Albumin/Globulin [Mass ratio] 0.7 {ratio} Normal [facility] Comment on above: Performed By: #### C BC #### [facility] [address] [place] [address] Dr. Moris Winter ALP [Catalytic activity/Vol] 86 U/L Normal 46-116 [facility] Comment on above: Performed By: #### C BC #### [facility] [address] [place] [address] Dr. Moris Winter ALT [Catalytic activity/Vol] 16 U/L Normal 14-59 [facility] Comment on above: Performed By: #### C BC #### [facility] [address] [place] [address] Dr. Moris Winter Anion gap [Moles/Vol] 14.9 mmol/L Normal Th e [facility] Comment on above: Performed By: #### C BC #### [facility] [address] [place] [address] Dr. Moris Winter AST [Catalytic activity/Vol] 12 U/L Critically low 15-37 [facility] Comment on above: Performed By: #### C BC #### [facility] [address] [place] [address] Dr. Moris Winter Bilirubin [Mass/Vol] 0.1 mg/dL Critically low 0.2-1.0 [facility] Comment on above: Performed By: #### C BC #### [facility] [address] [place] [address] Dr. Moris Winter Calcium [Mass/Vol] 9.3 mg/dL Normal 8.5-10.1 [facility] Comment on above: Performed By: #### C BC #### [facility] [address] [place] [address] Dr. Moris Winter Chloride [Moles/Vol] 103 mmol/L Normal 98-107 [facility] Comment on above: Performed By: #### C BC #### [facility] [address] [place] [address] Dr. Moris Winter CO2 [Moles/Vol] 25.4 mmol/L Normal 21.0-32.0 [facility] Comment on above: Performed By: #### C BC #### [facility] [address] [place] [address] Dr. Moris Winter Creatinine [Mass/Vol] 0.80 mg/dL Normal 0.55-1.02 [facility] Comment on above: Performed By: #### C BC #### [facility] [address] [place] [address] Dr. Moris Winter EGFR-AF VINCENTIAN >60 Normal >=60 [facility] Comment on above: Performed By: #### C BC #### [facility] [address] [place] [address] Dr. Moris Winter EGFR-NON AF VINCENTIAN >60 Normal >=60 [facility] Comment on above: Performed By: #### C BC #### [facility] [address] [address] [address] Moris Winter Globulin (S) [Mass/Vol] 4.6 g/dL Normal [facility] Comment on above: Performed By: #### C BC #### [facility] [address] [address] [address] Moris Winter Glucose [Mass/Vol] 111 mg/dL Critically high 74-106 T [facility] Comment on above: Performed By: #### C BC #### [facility] [address] [address] [address] Moris Winter Potassium [Moles/Vol] 3.3 mmol/L Critically low 3.5-5.1 [facility] Comment on above: Performed By: #### C BC #### [facility] [address] [place] [address] Dr. Moris Winter Protein [Mass/Vol] 7.9 g/dL Normal 6.4-8.2 [facility] Comment on above: Performed By: #### C BC #### [facility] [address] [address] [address] Moris Winter Sodium [Moles/Vol] 140 mmol/L Normal 136-145 [facility] Comment on above: Performed By: #### C BC #### [facility] [address] [place] [address] Dr. Moris Winter Urea nitrogen [Mass/Vol] 10.0 mg/dL Normal 7.0-18.0 [facility] Comment on above: Performed By: #### C BC #### [facility] [address] [place] [address] Dr. Moris Winter Urea nitrogen/Creatinine [Mass ratio] 12.5 mg/mg Normal [facility] Comment on above: Performed By: #### C BC #### [facility] [address] [address] [address] Moris Winter URINE MICROSCOPIC ONLYon BACTERIA TRACE Abnormal NONE SEEN The [facility] Comment on above: Performed By: #### P REGU #### [facility] [address] [address] [address] Moris Winter Bacteria identified Cx Nom (U) NOT INDICATED Normal [facility] Comment on above: Performed By: #### P REGU #### [facility] [address] [place] [address] Dr. Moris Winter CAST NONE SEEN Normal NONE SEEN [facility] Comment on above: Performed By: #### P REGU #### [facility] [address] [address] [address] Moris Winter Crystals LM Nom (Urine sed) NONE SEEN Normal NONE SEEN [facility] Comment on above: Performed By: #### P REGU #### [facility] [address] [place] [address] Dr. Moris Winter Epithelial cells LM Ql (Urine sed) FEW Abnormal NONE SEEN /RARE [facility] Comment on above: Performed By: #### P REGU #### [facility] [address] [place] [address] Dr. Moris Winter MUCOUS NONE SEEN Normal NONE SEEN [facility] Comment on above: Performed By: #### P REGU #### [facility] [address] [place] [address] Dr. Moris Winter RBC 0-2 Normal 0-2 [facility] Comment on above: Performed By: #### P REGU #### [facility] [address] [place] [address] Dr. Moris Winter WBC 2-5 Abnormal NONE SEEN The [facility] Comment on above: Performed By: #### P REGU #### [facility] [address] [place] [address] Dr. Moris Winter Cholesterol [Mass/volume] in Serum or PlasmaOrdered By: Nataly Toure on 06-16-2022 Cholesterol [Mass/Vol] 189 mg/dL 140-200 [facility] Comment on above: Chol less than 200 m g/dl low riskChol 201-239 mg/dl borderline riskChol 240 mg/dl and greater high risk Cholesterol in LDL Calc [Mas s/Vol]Ordered By: Nataly Toure on 06-16-2022 Cholesterol in LDL [Mass/Vol] 84 mg/dL 0-100 [facility] Comment on above: LDL ATP III CLASSIFI CATIONLDL less than 100 mg/dL OptimalLDL 100-129 mg/dL Near or above optimalLDL 130-159 mg/dL Borderline highLDL 160-189 mg/dL HighLDL greater than 189 mg/dL Very high Cholesterol in VLDL Calc [Ma ss/Vol]Ordered By: Nataly Toure on 06-16-2022 Cholesterol in VLDL [Mass/Vol] 54 mg/dL [facility] Serum or plasma high density lipoprotein (HDL) cholesterol measurementOrdered By: Nataly Toure on 06-16-2022 Cholesterol in HDL [Mass/Vol] 50 mg/dL 35-85 [facility] Comment on above: HDL CHOL ATP-III CLA SSIFICATION Cardiovascular RiskHDL > or equal to 60 mg/dL LOWHDL < 40 mg/dL HIGH Serum or plasma total choles terol/high density lipoprotein (HDL) cholesterol mass ratOrdered By: Nataly Toure on 06-16-2022 Cholesterol.total/Chol esterol in HDL [Mass ratio] 3.8 {ratio} <5.0 [facility] Triglyceride [Mass/volume] i n Serum or PlasmaOrdered By: Nataly Toure on 06-16-2022 Triglyceride [Mass/Vol] 273 mg/dL 0-149 [facility] Comment on above: TRIG ATP III CLASSIF ICATIONTRIG less than 150 mg/dL NormalTRIG 150-199 mg/dL Borderline highTRIG 200-500 mg/dL High TRIG greater than 500 mg/dL Very highStandard traceable to the Center for Disease Conrtrol and Prevention (CDC) test method. Alanine aminotransferase [En zymatic activity/volume] in Serum or PlasmaOrdered By: Nataly Toure on 06-04-2022 ALT [Catalytic activity/Vol] 7 U/L 7-52 [facility] Albumin [Mass/volume] in Ser um or Plasma by Bromocresol green (BCG) dye binding methoOrdered By: Nataly Toure on 06-04-2022 Albumin BCG dye [Mass/Vol] 3.8 g/dL 3.5-5.7 [facility] Alkaline phosphatase [Enzyma tic activity/volume] in Serum or PlasmaOrdered By: Nataly Junesic on 06-04-2022 ALP [Catalytic activity/Vol] 78 U/L 34-104 [facility] Amylase [Enzymatic activity/ volume] in Serum or PlasmaOrdered By: Nataly Spasic on 06-04-2022 Amylase [Catalytic activity/Vol] 29 U/L 29-103 [facility] Aspartate aminotransferase [ Enzymatic activity/volume] in Serum or PlasmaOrdered By: Nataly Spasic on 06-04-2022 AST [Catalytic activity/Vol] 10 U/L 13-39 [facility] Basophils Auto (Bld) [#/Vol] Ordered By: Nataly Junesic on 06-04-2022 Basophils (Bld) [#/Vol] 0.1 10*3/uL 0.0-0.2 [facility] Basophils/100 WBC Auto (Bld) Ordered By: Nataly Junesic on 06-04-2022 Basophils/100 WBC (Bld) 1.4 % . [facility] Bilirubin.total [Mass/volume ] in Serum or PlasmaOrdered By: Nataly Jerniganc on 06-04-2022 Bilirubin [Mass/Vol] 0.3 mg/dL 0.3-1.0 [facility] Calcium [Mass/volume] in Ser um or PlasmaOrdered By: Nataly Junesic on 06-04-2022 Calcium [Mass/Vol] 9.3 mg/dL 8.6-10.3 [facility] Carbon dioxide, total [Moles /volume] in Serum or PlasmaOrdered By: Nataly Jerniganc on 06-04-2022 CO2 [Moles/Vol] 29.6 mmol/L 21.0-31.0 [facility] Chloride [Moles/volume] in S rosa or PlasmaOrdered By: Nataly Spasic on 06-04-2022 Chloride [Moles/Vol] 99 mmol/L 98-107 [facility] Creatinine [Mass/volume] in Serum or PlasmaOrdered By: Nataly Spasic on 06-04-2022 Creatinine [Mass/Vol] 0.69 mg/dL 0.60-1.20 [facility] Eosinophils Auto (Bld) [#/Vo l]Ordered By: Nataly Spasic on 06-04-2022 Eosinophils (Bld) [#/Vol] 0.2 10*3/uL 0.0-0.45 [facility] Eosinophils/100 WBC Auto (Bl d)Ordered By: Nataly Toure on 06-04-2022 Eosinophils/100 WBC (Bld) 1.8 % . [facility] Erythrocyte distribution wid th Auto (RBC) [Ratio]Ordered By: Nataly Toure on 06-04-2022 Erythrocyte distribution width (RBC) [Ratio] 14.6 % 11.9-15.3 [facility] Ferritin [Mass/volume] in Se rum or PlasmaOrdered By: Nataly Toure on 06-04-2022 Ferritin [Mass/Vol] 12.7 ng/mL 11.0-306.[address] [facility] Globulin Calc (S) [Mass/Vol] Ordered By: Nataly Toure on 06-04-2022 Globulin (S) [Mass/Vol] 3.6 g/dL [facility] Glucose [Mass/volume] in Ser um or PlasmaOrdered By: Nataly Toure on 06-04-2022 Glucose [Mass/Vol] 103 mg/dL 70-100 [facility] Comment on above: ADA recommended refe rence rangeRandom Glucose Reference Range is dependent on time and content of last meal. Glucose of more than 200 mg/dL in a nonstressed, ambulatory subject supports the diagnosis of Diabetes Mellitus. Hematocrit Auto (Bld) [Volum e fraction]Ordered By: Nataly Toure on 06-04-2022 Hematocrit (Bld) [Volume fraction] 38.2 % 34.0-46.4 [facility] Hemoglobin [Mass/volume] in BloodOrdered By: Nataly Toure on 06-04-2022 Hemoglobin (Bld) [Mass/Vol] 12.7 g/dL 11.8-15.4 [facility] Leukocytes [#/volume] correc kee for nucleated erythrocytes in Blood by Automated counOrdered By: Nataly Toure on 06-04-2022 WBC corrected for nucl RBC Auto (Bld) [#/Vol] 8.7 10*3/uL 3.8-11.6 [facility] Lipase [Enzymatic activity/v olume] in Serum or PlasmaOrdered By: Nataly Toure on 06-04-2022 Lipase [Catalytic activity/Vol] 38.0 U/L 11.0-82.0 [facility] Lymphocytes Auto (Bld) [#/Vo l]Ordered By: Nataly Jerniganc on 06-04-2022 Lymphocytes (Bld) [#/Vol] 1.7 10*3/uL 1.00-4.8 [facility] Lymphocytes/100 WBC Auto (Bl d)Ordered By: Nataly Junesic on 06-04-2022 Lymphocytes/100 WBC (Bld) 19.7 % . [facility] MCH Auto (RBC) [Entitic mass ]Ordered By: Nataly Toure on 06-04-2022 MCH (RBC) [Entitic mass] 26.8 pg 24.7-34.3 [facility] MCHC Auto (RBC) [Mass/Vol]Or dered By: Nataly Jerniganc on 06-04-2022 MCHC (RBC) [Mass/Vol] 33.2 g/dL 32.0-35.0 [facility] MCV Auto (RBC) [Entitic vol] Ordered By: Nataly Jerniganc on 06-04-2022 MCV (RBC) [Entitic vol] 80.7 fL 80-100 [facility] Monocytes Auto (Bld) [#/Vol] Ordered By: Nataly Junesic on 06-04-2022 Monocytes (Bld) [#/Vol] 0.5 10*3/uL 0.0-0.8 [facility] Monocytes/100 WBC Auto (Bld) Ordered By: Nataly Spasic on 06-04-2022 Monocytes/100 WBC (Bld) 6.1 % . [facility] Neutrophils Auto (Bld) [#/Vo l]Ordered By: Nataly Junesic on 06-04-2022 Neutrophils (Bld) [#/Vol] 6.2 10*3/uL 1.8-7.7 [facility] Neutrophils/100 WBC Auto (Bl d)Ordered By: Nataly Jerniganc on 06-04-2022 Neutrophils/100 WBC (Bld) 71.0 % . [facility] No Panel InformationOrdered By: Nataly Toure on 06-04-2022 Estimated GFR (CKD-EPI) > 60.0 mL/Min [facility] Creatinine Clearance (Chem N/A [facility] Nucleated erythrocytes [Pres ence] in Blood by Automated countOrdered By: Nataly Toure on 06-04-2022 Nucleated RBC Auto Ql (Bld) 0.2 /100{WBC} 0-0.5 [facility] Platelet mean volume Auto (B ld) [Entitic vol]Ordered By: Nataly Toure on 06-04-2022 Platelet mean volume (Bld) [Entitic vol] 10.2 fL 6.3-10.7 [facility] Platelets Auto (Bld) [#/Vol] Ordered By: Nataly Toure on 06-04-2022 Platelets (Bld) [#/Vol] 245 10*3/uL 150-450 [facility] Potassium [Moles/volume] in Serum or PlasmaOrdered By: Nataly Toure on 06-04-2022 Potassium [Moles/Vol] 4.5 mmol/L 3.5-5.1 [facility] Protein [Mass/volume] in Ser um or PlasmaOrdered By: Nataly Toure on 06-04-2022 Protein [Mass/Vol] 7.4 g/dL 6.4-8.9 [facility] RBC Auto (Bld) [#/Vol]Ordere d By: Nataly Toure on 06-04-2022 RBC (Bld) [#/Vol] 4.73 10*6/uL 3.60-5.[address] [facility] Serum or plasma albumin/glob ulin mass ratioOrdered By: Nataly Toure on 06-04-2022 Albumin/Globulin [Mass ratio] 1.1 {ratio} [facility] Serum or plasma anion gap de terminationOrdered By: Nataly Toure on 06-04-2022 Anion gap [Moles/Vol] 10.9 mmol/L 6.0-15.0 [facility] Serum or plasma insulin nikita urement (units/volume)Ordered By: Nataly Toure on 06-04-2022 Insulin Qn 128.0 u[iU]/mL 2.6-24.9 [facility] Comment on above: Performed at: [facility] ram[facility]rez [address] [id number] Director: Sam Lopez PhD, Phone: [phone] Sodium [Moles/volume] in Ser um or PlasmaOrdered By: Nataly Junesianirudh on 06-04-2022 Sodium [Moles/Vol] 135 mmol/L 136-145 [facility] Urea nitrogen [Mass/volume] in Serum or PlasmaOrdered By: Nataly Spasic on 06-04-2022 Urea nitrogen [Mass/Vol] 9 mg/dL 7-25 [facility] WBC Auto (Bld) [#/Vol]Ordere d By: Nataly Junesianirudh on 06-04-2022 WBC (Bld) [#/Vol] 8.7 10*3/uL 3.8-11.6 [facility] AMYLASEon 06-03-2022 Amylase [Catalytic activity/Vol] 37 U/L Normal 25-115 [facility] Comment on above: Performed By: #### L IPA, CMP, KIM #### [facility] [address] [place] [address] Dr. Moris Winter CBC AUTO DIFFon 06-03-2022 BASO # 0.0 103/ul Normal 0.0-0.1 [facility] Comment on above: Performed By: #### C BC #### [facility] [address] [place] [address] Dr. Moris Winter Basophils/100 WBC (Bld) 0.1 % Critically low 0.2-2.0 [facility] Comment on above: Performed By: #### C BC #### [facility] [address] [place] [address] Dr. Moris Winter EO # 0.1 103/ul Normal 0.0-0.7 [facility] Comment on above: Performed By: #### C BC #### [facility] [address] [place] [address] Dr. Moris Winter Eosinophils/100 WBC (Bld) 1.6 % Normal 0.9-7.0 [facility] Comment on above: Performed By: #### C BC #### [facility] [address] [place] [address] Dr. Moris Winter Erythrocyte distribution width (RBC) [Ratio] 13.5 % Normal 11.0-15.0 [facility] Comment on above: Performed By: #### C BC #### [facility] [address] [place] [address] Dr. Moris Winter Hematocrit (Bld) [Volume fraction] 36.3 % Normal 36.0-48.0 [facility] Comment on above: Performed By: #### C BC #### [facility] [address] [place] [address] Dr. Moris Winter Hemoglobin (Bld) [Mass/Vol] 11.8 g/dL Critically low 12.0-16.0 [facility] Comment on above: Performed By: #### C BC #### [facility] [address] [place] [address] Dr. Moris Winter IG # 0.03 10e3/ul Normal 0.00-0.03 [facility] Comment on above: Performed By: #### C BC #### [facility] [address] [place] [address] Dr. Moris Winter IG % 0.4 % Normal 0.0-0.5 [facility] Comment on above: Performed By: #### C BC #### [facility] [address] [place] [address] Dr. Moris Winter LYMPH # 2.5 103/ul Normal 1.2-3.8 [facility] Comment on above: Performed By: #### C BC #### [facility] [address] [place] [address] Dr. Moris Winter Lymphocytes/100 WBC (Bld) 33.2 % Normal 20.5-60.0 [facility] Comment on above: Performed By: #### C BC #### [facility] [address] [place] [address] Dr. Moris Winter MANUAL DIFF REQ NO Normal [facility] Comment on above: Performed By: #### C BC #### [facility] [address] [address] [address] Moris Winter MCH (RBC) [Entitic mass] 26.2 pg Critically low 26.7-34.0 [facility] Comment on above: Performed By: #### C BC #### [facility] [address] [place] [address] Dr. Moris Winter MCHC (RBC) [Mass/Vol] 32.5 g/dL Normal 29.9-35.2 [facility] Comment on above: Performed By: #### C BC #### [facility] [address] [place] [address] Dr. Moris Winter MCV (RBC) [Entitic vol] 80.7 fL Critically low 81.0-99.0 [facility] Comment on above: Performed By: #### C BC #### [facility] [address] [place] [address] Dr. Moris Winter MONO # 0.7 103/ul Normal 0.3-0.8 [facility] Comment on above: Performed By: #### C BC #### [facility] [address] [place] [address] Dr. Moris Winter Monocytes/100 WBC (Bld) 9.9 % Normal 1.7-12.0 [facility] Comment on above: Performed By: #### C BC #### [facility] [address] [place] [address] Dr. Moris Winter NEUT # 4.1 103/ul Normal 1.4-6.5 [facility] Comment on above: Performed By: #### C BC #### [facility] [address] [place] [address] Dr. Moris Winter Neutrophils/100 WBC (Bld) 54.8 % Normal 43.0-75.0 [facility] Comment on above: Performed By: #### C BC #### [facility] [address] [place] [address] Dr. Moris Winter Platelet mean volume (Bld) [Entitic vol] 10.7 fL Normal 9.5-13.5 [facility] Comment on above: Performed By: #### C BC #### [facility] [address] [address] [address] Moris Winter PLT 248 103/ul Normal 150-450 [facility] Comment on above: Performed By: #### C BC #### [facility] [address] [address] [address] Moris Winter RBC 4.50 106/ul Normal 4.20-5.40 [facility] Comment on above: Performed By: #### C BC #### [facility] [address] [address] [address] Moris Winter WBC 7.5 103/ul Normal 4.0-11.0 [facility] Comment on above: Performed By: #### C BC #### [facility] [address] [place] [address] ABD/PELV W CONon 06-04-19 CT ABD/PELV W CON EXAM: CT ABD/PELV [...] NANCI COULTER Date: 2022-06-03 02:19 Normal [facility] ER URINE PROFILEon 3 Bilirubin Ql (U) Negative Normal NEGATIVE [facility] Comment on above: Performed By: #### C BC #### [facility] [address] [place] [address] Dr. Moris Winter Clarity (U) CLEAR Normal CLEAR [facility] Comment on above: Performed By: #### C BC #### [facility] [address] [place] [address] Dr. Moris Winter Color (U) LT. YELLOW Normal YELLOW [facility] Comment on above: Performed By: #### C BC #### [facility] [address] [place] [address] Dr. Moris Winter ERUAHD A micrscopic examina tion will be performed if indicated. Normal [facility] Comment on above: Performed By: #### C BC #### [facility] [address] [place] [address] Dr. Moris Winter Glucose Ql (U) Negative Normal NEGATIVE [facility] Comment on above: Performed By: #### C BC #### [facility] [address] [place] [address] Dr. Moris Winter Hemoglobin Ql (U) Negative Normal NEGATIVE [facility] Comment on above: Performed By: #### C BC #### [facility] [address] [place] [address] Dr. Moris Winter Ketones Ql (U) Negative Normal NEGATIVE [facility] Comment on above: Performed By: #### C BC #### [facility] [address] [place] [address] Dr. Moris Winter LEUKOCYTES Negative Normal NEGATIVE [facility] Comment on above: Performed By: #### C BC #### [facility] [address] [place] [address] Dr. Moris Winter Nitrite Ql (U) Negative Normal NEGATIVE [facility] Comment on above: Performed By: #### C BC #### [facility] [address] [place] [address] Dr. Moris Winter pH (U) 7.0 [pH] Normal 5-9 [facility] Comment on above: Performed By: #### C BC #### [facility] [address] [place] [address] Dr. Moris Winter SPEC GRAVITY 1.015 Normal 1.005-<=1. 025 [facility] Comment on above: Performed By: #### C BC #### [facility] [address] [place] [address] Dr. Moris Winter UA PROTEIN Negative Normal NEGATIVE/ TRACE [facility] Comment on above: Performed By: #### C BC #### [facility] [address] [place] [address] Dr. Moris Winter UR MICRO IND NOT INDICATED Normal [facility] Comment on above: Performed By: #### C BC #### [facility] [address] [place] [address] Dr. Moris Winter Urobilinogen Qn (U) 1.0 {Marcin'U}/dL Normal 0.2 - 1. 0 [facility] Comment on above: Performed By: #### C BC #### [facility] [address] [place] [address] Dr. Moris Winter LACTATE/LACTIC ACIDon 2022 Lactate [Moles/Vol] 1.0 mmol/L Normal 0.4-2.0 [facility] Comment on above: Performed By: #### L ACT #### [facility] [address] [place] [address] Dr. Moris Winter LIPASEon 06-03-2022 Lipase [Catalytic activity/Vol] 112.0 U/L Normal 73.0-393.0 [facility] Comment on above: Performed By: #### L IPA, CMP, KIM #### [facility] [address] [address] [address] Moris Winter URon 06-03-2022 , QUAL Negative Normal NEGATIVE [facility] Comment on above: Performed By: #### P REGU #### [facility] [address] [address] [address] Moris Winter PROF 14(COMP METB)on 023 Albumin [Mass/Vol] 2.9 g/dL Critically low 3.4-5.0 [facility] Comment on above: Performed By: #### L IPA, CMP, KIM #### [facility] [address] [address] [address] Moris Winter Albumin/Globulin [Mass ratio] 0.6 {ratio} Normal [facility] Comment on above: Performed By: #### L IPA, CMP, KIM #### [facility] [address] [place] [address] Dr. Moris Winter ALP [Catalytic activity/Vol] 86 U/L Normal 46-116 [facility] Comment on above: Performed By: #### L IPA, CMP, KIM #### [facility] [address] [place] [address] Dr. Moris Winter ALT [Catalytic activity/Vol] 14 U/L Normal 14-59 [facility] Comment on above: Performed By: #### L IPA, CMP, KIM #### [facility] [address] [address] [address] Moris Winter Anion gap [Moles/Vol] 10.9 mmol/L Normal [facility] Comment on above: Performed By: #### L IPA, CMP, KIM #### [facility] [address] [place] [address] Dr. Moris Winter AST [Catalytic activity/Vol] 12 U/L Critically low 15-37 [facility] Comment on above: Performed By: #### L IPA, CMP, KIM #### [facility] [address] [place] [address] Dr. Moris Winter Bilirubin [Mass/Vol] 0.2 mg/dL Normal 0.2-1.0 [facility] Comment on above: Performed By: #### L IPA, CMP, KIM #### [facility] [address] [address] [address] Moris Winter Calcium [Mass/Vol] 9.0 mg/dL Normal 8.5-10.1 [facility] Comment on above: Performed By: #### L IPA, CMP, KIM #### [facility] [address] [address] [address] Moris Winter Chloride [Moles/Vol] 102 mmol/L Normal 98-107 [facility] Comment on above: Performed By: #### L IPA, CMP, KIM #### [facility] [address] [address] [address] Moris Winter CO2 [Moles/Vol] 29.6 mmol/L Normal 21.0-32.0 [facility] Comment on above: Performed By: #### L IPA, CMP, KIM #### [facility] [address] [place] [address] Dr. Moris Winter Creatinine [Mass/Vol] 0.73 mg/dL Normal 0.55-1.02 [facility] Comment on above: Performed By: #### L IPA, CMP, KIM #### [facility] [address] [place] [address] Dr. Moris Winter EGFR-AF VINCENTIAN >60 Normal >=60 [facility] Comment on above: Performed By: #### L IPA, CMP, KIM #### [facility] [address] [place] [address] Dr. Moris Winter EGFR-NON AF VINCENTIAN >60 Normal >=60 [facility] Comment on above: Performed By: #### L IPA, CMP, KIM #### [facility] [address] [place] [address] Dr. Moris Winter Globulin (S) [Mass/Vol] 4.8 g/dL Normal [facility] Comment on above: Performed By: #### L IPA, CMP, KIM #### [facility] [address] [place] [address] Dr. Moris Winter Glucose [Mass/Vol] 121 mg/dL Critically high 74-106 [facility] Comment on above: Performed By: #### L IPA, CMP, KIM #### [facility] [address] [address] [address] Moris Winter Potassium [Moles/Vol] 3.5 mmol/L Normal 3.5-5.1 [facility] Comment on above: Performed By: #### L IPA, CMP, KIM #### [facility] [address] [place] [address] Dr. Moris Winter Protein [Mass/Vol] 7.7 g/dL Normal 6.4-8.2 [facility] Comment on above: Performed By: #### L IPA, CMP, KIM #### [facility] [address] [place] [address] Dr. Moris Winter Sodium [Moles/Vol] 139 mmol/L Normal 136-145 [facility] Comment on above: Performed By: #### L IPA, CMP, KIM #### [facility] [address] [place] [address] Dr. Moris Winter Urea nitrogen [Mass/Vol] 11.0 mg/dL Normal 7.0-18.0 [facility] Comment on above: Performed By: #### L IPA, CMP, KIM #### [facility] [address] [place] [address] Dr. Moris Winter Urea nitrogen/Creatinine [Mass ratio] 15.1 mg/mg Normal [facility] Comment on above: Performed By: #### L IPA, CMP, KIM #### [facility] [address] [place] [address] Dr. Moris Winter Alanine aminotransferase [En zymatic activity/volume] in Serum or PlasmaOrdered By: Nataly Toure on 05-28-2022 ALT [Catalytic activity/Vol] 10 U/L [facility] Albumin [Mass/volume] in Ser um or Plasma by Bromocresol green (BCG) dye binding methoOrdered By: Nataly Toure on 05-28-2022 Albumin BCG dye [Mass/Vol] 3.9 g/dL 3.5-5.7 [facility] Alkaline phosphatase [Enzyma tic activity/volume] in Serum or PlasmaOrdered By: Nataly Toure on 05-28-2022 ALP [Catalytic activity/Vol] 87 U/L 34-104 [facility] Aspartate aminotransferase [ Enzymatic activity/volume] in Serum or PlasmaOrdered By: Nataly Toure on 05-28-2022 AST [Catalytic activity/Vol] 11 U/L 13-39 [facility] Basophils Auto (Bld) [#/Vol] Ordered By: Nataly Toure on 05-28-2022 Basophils (Bld) [#/Vol] 0.0 10*3/uL 0.0-0.2 [facility] Basophils/100 WBC Auto (Bld) Ordered By: Nataly Toure on 05-28-2022 Basophils/100 WBC (Bld) 0.6 % . [facility] Bilirubin.total [Mass/volume ] in Serum or PlasmaOrdered By: Nataly Toure on 05-28-2022 Bilirubin [Mass/Vol] 0.4 mg/dL 0.3-1.0 [facility] Calcium [Mass/volume] in Ser um or PlasmaOrdered By: Naatly Toure on 05-28-2022 Calcium [Mass/Vol] 9.1 mg/dL 8.6-10.3 [facility] Carbon dioxide, total [Moles /volume] in Serum or PlasmaOrdered By: Nataly Toure on 05-28-2022 CO2 [Moles/Vol] 27.6 mmol/L 21.0-31.0 [facility] Chloride [Moles/volume] in S rosa or PlasmaOrdered By: Nataly Toure on 05-28-2022 Chloride [Moles/Vol] 102 mmol/L 98-107 [facility] Cholesterol [Mass/volume] in Serum or PlasmaOrdered By: Nataly Toure on 05-28-2022 Cholesterol [Mass/Vol] 269 mg/dL 140-200 [facility] Comment on above: Chol less than 200 m g/dl low riskChol 201-239 mg/dl borderline riskChol 240 mg/dl and greater high risk Cholesterol in LDL Calc [Mas s/Vol]Ordered By: Nataly Toure on 05-28-2022 Cholesterol in LDL [Mass/Vol] TNP [facility] Comment on above: Test not performed Cholesterol in LDL [Mass/vol ume] in Serum or PlasmaOrdered By: Nataly Toure on 05-28-2022 Cholesterol in LDL [Mass/Vol] 82 mg/dL 0-100 [facility] Comment on above: LDL ATP III CLASSIFI CATIONLDL less than 100 mg/dL OptimalLDL 100-129 mg/dL Near or above optimalLDL 130-159 mg/dL Borderline highLDL 160-189 mg/dL HighLDL greater than 189 mg/dL Very high Cholesterol in VLDL Calc [Ma ss/Vol]Ordered By: Nataly Toure on 05-28-2022 Cholesterol in VLDL [Mass/Vol] 187 mg/dL [facility] Creatinine [Mass/volume] in Serum or PlasmaOrdered By: Nataly Toure on 05-28-2022 Creatinine [Mass/Vol] 0.68 mg/dL 0.60-1.20 [facility] Eosinophils Auto (Bld) [#/Vo l]Ordered By: Nataly Toure on 05-28-2022 Eosinophils (Bld) [#/Vol] 0.2 10*3/uL 0.0-0.45 [facility] Eosinophils/100 WBC Auto (Bl d)Ordered By: Nataly Toure on 05-28-2022 Eosinophils/100 WBC (Bld) 2.1 % . [facility] Erythrocyte distribution wid th Auto (RBC) [Ratio]Ordered By: Nataly Toure on 05-28-2022 Erythrocyte distribution width (RBC) [Ratio] 14.5 % 11.9-15.3 [facility] Free thyroxine indexOrdered By: Nataly Toure on 05-28-2022 Free T4 index Calc [Mass/Vol] 2.9 1.2-4.9 [facility] Globulin Calc (S) [Mass/Vol] Ordered By: Nataly Toure on 05-28-2022 Globulin (S) [Mass/Vol] 3.6 g/dL [facility] Glucose [Mass/volume] in Ser um or PlasmaOrdered By: Nataly Toure on 05-28-2022 Glucose [Mass/Vol] 95 mg/dL 70-100 [facility] Comment on above: ADA recommended refe rence rangeRandom Glucose Reference Range is dependent on time and content of last meal. Glucose of more than 200 mg/dL in a nonstressed, ambulatory subject supports the diagnosis of Diabetes Mellitus. Glucose mean value [Mass/vol ume] in Blood Estimated from glycated hemoglobinOrdered By: Nataly Toure on 05-28-2022 Average glucose Estimated from glycated hemoglobin (Bld) [Mass/Vol] 111 mg/dL [facility] Hematocrit Auto (Bld) [Volum e fraction]Ordered By: Nataly Toure on 05-28-2022 Hematocrit (Bld) [Volume fraction] 38.2 % 34.0-46.4 [facility] Hemoglobin A1c percentageOrd ered By: Nataly Toure on 05-28-2022 HbA1c (Bld) [Mass fraction] 5.5 % 4.3-5.6 [facility] Comment on above: Increased risk for d iabetes: 5.7 - 6.4diabetes: >6.4glycemic control for adults with diabetes: <7.0 Hemoglobin [Mass/volume] in BloodOrdered By: Nataly Toure on 05-28-2022 Hemoglobin (Bld) [Mass/Vol] 12.9 g/dL 11.8-15.4 [facility] Iron [Mass/volume] in Serum or PlasmaOrdered By: Nataly Toure on 05-28-2022 Iron [Mass/Vol] 30 ug/dL 50-212 [facility] Iron binding capacity [Mass/ volume] in Serum or PlasmaOrdered By: Nataly Toure on 05-28-2022 Iron binding capacity [Mass/Vol] 449 ug/dL 255-450 [facility] Iron saturation [Mass Fracti on] in Serum or PlasmaOrdered By: Nataly Toure on 05-28-2022 Iron saturation [Mass fraction] 6.7 % 20-50 [facility] Leukocytes [#/volume] correc kee for nucleated erythrocytes in Blood by Automated counOrdered By: Nataly Toure on 05-28-2022 WBC corrected for nucl RBC Auto (Bld) [#/Vol] 7.3 10*3/uL 3.8-11.6 [facility] Lymphocytes Auto (Bld) [#/Vo l]Ordered By: Nataly Toure on 05-28-2022 Lymphocytes (Bld) [#/Vol] 1.9 10*3/uL 1.00-4.8 [facility] Lymphocytes/100 WBC Auto (Bl d)Ordered By: Nataly Toure on 05-28-2022 Lymphocytes/100 WBC (Bld) 26.6 % . [facility] MCH Auto (RBC) [Entitic mass ]Ordered By: Nataly Toure on 05-28-2022 MCH (RBC) [Entitic mass] 26.9 pg 24.7-34.3 [facility] MCHC Auto (RBC) [Mass/Vol]Or dered By: Nataly Toure on 05-28-2022 MCHC (RBC) [Mass/Vol] 33.8 g/dL 32.0-35.0 [facility] MCV Auto (RBC) [Entitic vol] Ordered By: Nataly Toure on 05-28-2022 MCV (RBC) [Entitic vol] 79.6 fL 80-100 [facility] Monocytes Auto (Bld) [#/Vol] Ordered By: Nataly Toure on 05-28-2022 Monocytes (Bld) [#/Vol] 0.6 10*3/uL 0.0-0.8 [facility] Monocytes/100 WBC Auto (Bld) Ordered By: Nataly Toure on 05-28-2022 Monocytes/100 WBC (Bld) 7.7 % . [facility] Neutrophils Auto (Bld) [#/Vo l]Ordered By: Nataly Toure on 05-28-2022 Neutrophils (Bld) [#/Vol] 4.6 10*3/uL 1.8-7.7 [facility] Neutrophils/100 WBC Auto (Bl d)Ordered By: Nataly Toure on 05-28-2022 Neutrophils/100 WBC (Bld) 63.0 % . [facility] No Panel InformationOrdered By: Nataly Toure on 05-28-2022 Estimated GFR (CKD-EPI) > 60.0 mL/Min [facility] Free Thyroxine (T4) Direct 10.8 ug/dL 4.5-12.0 [facility] Creatinine Clearance (Chem N/A [facility] Nucleated erythrocytes [Pres ence] in Blood by Automated countOrdered By: Nataly Toure on 05-28-2022 Nucleated RBC Auto Ql (Bld) 0.4 /100{WBC} 0-0.5 [facility] Platelet mean volume Auto (B ld) [Entitic vol]Ordered By: Nataly Toure on 05-28-2022 Platelet mean volume (Bld) [Entitic vol] 9.0 fL 6.3-10.7 [facility] Platelets Auto (Bld) [#/Vol] Ordered By: Nataly Toure on 05-28-2022 Platelets (Bld) [#/Vol] 247 10*3/uL 150-450 [facility] Potassium [Moles/volume] in Serum or PlasmaOrdered By: Nataly Toure on 05-28-2022 Potassium [Moles/Vol] 3.8 mmol/L 3.5-5.1 [facility] Protein [Mass/volume] in Ser um or PlasmaOrdered By: Nataly Toure on 05-28-2022 Protein [Mass/Vol] 7.5 g/dL 6.4-8.9 [facility] RBC Auto (Bld) [#/Vol]Ordere d By: Nataly Toure on 05-28-2022 RBC (Bld) [#/Vol] 4.80 10*6/uL 3.60-5.[address] [facility] Serum or plasma albumin/glob ulin mass ratioOrdered By: Nataly Toure on 05-28-2022 Albumin/Globulin [Mass ratio] 1.1 {ratio} [facility] Serum or plasma anion gap de terminationOrdered By: Nataly Toure on 05-28-2022 Anion gap [Moles/Vol] 12.2 mmol/L 6.0-15.0 [facility] Serum or plasma high density lipoprotein (HDL) cholesterol measurementOrdered By: Nataly Toure on 05-28-2022 Cholesterol in HDL [Mass/Vol] 42 mg/dL 35-85 [facility] Comment on above: HDL CHOL ATP-III CLA SSIFICATION Cardiovascular RiskHDL > or equal to 60 mg/dL LOWHDL < 40 mg/dL HIGH Serum or plasma thyroperoxid ase antibody assay (units/volume)Ordered By: Nataly Toure on 05-28-2022 TPO Ab Qn [IU]/mL 0-34 [facility] Comment on above: Performed at: [place] [id number] Director: Sam Lopez PhD, Phone: [phone] Serum or plasma total choles terol/high density lipoprotein (HDL) cholesterol mass ratOrdered By: Nataly Toure on 05-28-2022 Cholesterol.total/Chol esterol in HDL [Mass ratio] 6.4 {ratio} <5.0 [facility] Sodium [Moles/volume] in Ser um or PlasmaOrdered By: Nataly Toure on 05-28-2022 Sodium [Moles/Vol] 138 mmol/L 136-145 [facility] TSH DL <= 0.005 mIU/L QnOrde red By: Nataly Toure on 05-28-2022 TSH Qn 2.330 m[IU]/L 0.450-4.50 0 [facility] Transferrin [Mass/volume] in Serum or PlasmaOrdered By: Nataly Toure on 05-28-2022 Transferrin [Mass/Vol] 321 mg/dL 203-362 [facility] Triglyceride [Mass/volume] i n Serum or PlasmaOrdered By: Nataly Toure on 05-28-2022 Triglyceride [Mass/Vol] 939 mg/dL 0-149 [facility] Comment on above: If the triglyceride result [...] on 05-28-2022 T3 [Mass/Vol] 186 ng/dL 71-180 [facility] Triiodothyronine (T3) resin uptake testOrdered By: Nataly Toure on 05-28-2022 T3RU 27 % 24-39 [facility] Urea nitrogen [Mass/volume] in Serum or PlasmaOrdered By: Nataly Toure on 05-28-2022 Urea nitrogen [Mass/Vol] 11 mg/dL 7-25 [facility] WBC Auto (Bld) [#/Vol]Ordere d By: Nataly Toure on 05-28-2022 WBC (Bld) [#/Vol] 7.3 10*3/uL 3.8-11.6 [facility] XR LSPINE 2_3 VIEWSon 2022 XR LSPINE [...] PILI MIGUEL Date: 2022-03-15 22:49 Normal [facility] CBC AUTO DIFFon 03-15-2022 BASO # 0.0 103/ul Normal 0.0-0.1 [facility] Comment on above: Performed By: #### P REGU #### [facility] [address] [address] [address] Moris Winter Basophils/100 WBC (Bld) 0.1 % Critically low 0.2-2.0 [facility] Comment on above: Performed By: #### P REGU #### [facility] [address] [address] [address] Moris Winter EO # 0.1 103/ul Normal 0.0-0.7 [facility] Comment on above: Performed By: #### P REGU #### [facility] [address] [address] [address] Moris Winter Eosinophils/100 WBC (Bld) 0.8 % Critically low 0.9-7.0 [facility] Comment on above: Performed By: #### P REGU #### [facility] [address] [place] [address] Dr. Moris Winter Erythrocyte distribution width (RBC) [Ratio] 13.3 % Normal 11.0-15.0 [facility] Comment on above: Performed By: #### P REGU #### [facility] [address] [place] [address] Dr. Moris Winter Hematocrit (Bld) [Volume fraction] 37.4 % Normal 36.0-48.0 [facility] Comment on above: Performed By: #### P REGU #### [facility] [address] [place] [address] Dr. Moris Winter Hemoglobin (Bld) [Mass/Vol] 13.2 g/dL Normal 12.0-16.0 [facility] Comment on above: Performed By: #### P REGU #### [facility] [address] [place] [address] Dr. Moris Winter IG # 0.02 10e3/ul Normal 0.00-0.03 [facility] Comment on above: Performed By: #### P REGU #### [facility] [address] [place] [address] Dr. Moris Winter IG % 0.2 % Normal 0.0-0.5 [facility] Comment on above: Performed By: #### P REGU #### [facility] [address] [place] [address] Dr. Moris Winter LYMPH # 1.2 103/ul Normal 1.2-3.8 [facility] Comment on above: Performed By: #### P REGU #### [facility] [address] [place] [address] Dr. Moris Winter Lymphocytes/100 WBC (Bld) 14.6 % Critically low 20.5-60.0 [facility] Comment on above: Performed By: #### P REGU #### [facility] [address] [place] [address] Dr. Moris Winter MANUAL DIFF REQ NO Normal [facility] Comment on above: Performed By: #### P REGU #### [facility] [address] [place] [address] Dr. Moris Winter MCH (RBC) [Entitic mass] 27.3 pg Normal 26.7-34.0 [facility] Comment on above: Performed By: #### P REGU #### [facility] [address] [place] [address] Dr. Moris Winter MCHC (RBC) [Mass/Vol] 35.3 g/dL Critically high 29.9-35.2 [facility] Comment on above: Performed By: #### P REGU #### [facility] [address] [place] [address] Dr. Moris Winter MCV (RBC) [Entitic vol] 77.3 fL Critically low 81.0-99.0 [facility] Comment on above: Performed By: #### P REGU #### [facility] [address] [place] [address] Dr. Moris Winter MONO # 0.5 103/ul Normal 0.3-0.8 [facility] Comment on above: Performed By: #### P REGU #### [facility] [address] [place] [address] Dr. Moris Winter Monocytes/100 WBC (Bld) 5.4 % Normal 1.7-12.0 [facility] Comment on above: Performed By: #### P REGU #### [facility] [address] [place] [address] Dr. Moris Winter NEUT # 6.5 103/ul Normal 1.4-6.5 [facility] Comment on above: Performed By: #### P REGU #### [facility] [address] [place] [address] Dr. Moris Winter Neutrophils/100 WBC (Bld) 78.9 % Critically high 43.0-75.0 [facility] Comment on above: Performed By: #### P REGU #### [facility] [address] [address] [address] Moris Winter Platelet mean volume (Bld) [Entitic vol] 10.1 fL Normal 9.5-13.5 [facility] Comment on above: Performed By: #### P REGU #### [facility] [address] [address] [address] Moris Winter PLT 256 103/ul Normal 150-450 [facility] Comment on above: Performed By: #### P REGU #### [facility] [address] [address] [address] Moris Winter RBC 4.84 106/ul Normal 4.20-5.40 [facility] Comment on above: Performed By: #### P REGU #### [facility] [address] [place] [address] Dr. Moris Winter WBC 8.3 103/ul Normal 4.0-11.0 [facility] Comment on above: Performed By: #### P REGU #### [facility] [address] [place] [address] Dr. Moris Winter CRPon 03-15-2022 CRP 3.3 mg/dL Critically high <=1.0 [facility] Comment on above: Performed By: #### B MP, CRP #### [facility] [address] [place] [address] Dr. Moris Winter URon 03-15-2022 , QUAL Negative Normal NEGATIVE [facility] Comment on above: Performed By: #### P REGU #### [facility] [address] [place] [address] Dr. Moris Winter PROF CHEM 8 (BAS METB)on Anion gap [Moles/Vol] 15.8 mmol/L Normal Th [facility] Comment on above: Performed By: #### B MP, CRP #### [facility] [address] [place] [address] Dr. Moris Winter Calcium [Mass/Vol] 8.6 mg/dL Normal 8.5-10.1 [facility] Comment on above: Performed By: #### B MP, CRP #### [facility] [address] [address] [address] Moris Winter Chloride [Moles/Vol] 98 mmol/L Normal 98-107 [facility] Comment on above: Performed By: #### B MP, CRP #### [facility] [address] [address] [address] Moris Winter CO2 [Moles/Vol] 26.7 mmol/L Normal 21.0-32.0 [facility] Comment on above: Performed By: #### B MP, CRP #### [facility] [address] [address] [address] Moris Winter Creatinine [Mass/Vol] 0.80 mg/dL Normal 0.55-1.02 [facility] Comment on above: Performed By: #### B MP, CRP #### [facility] [address] [place] [address] Dr. Moris Winter EGFR-AF VINCENTIAN >60 Normal >=60 [facility] Comment on above: Performed By: #### B MP, CRP #### [facility] [address] [place] [address] Dr. Moris Winter EGFR-NON AF VINCENTIAN >60 Normal >=60 [facility] Comment on above: Performed By: #### B MP, CRP #### [facility] [address] [place] [address] Dr. Moris Winter Glucose [Mass/Vol] 103 mg/dL Normal 74-106 [facility] Comment on above: Performed By: #### B MP, CRP #### [facility] [address] [place] [address] Dr. Moris Winter Potassium [Moles/Vol] 3.5 mmol/L Normal 3.5-5.1 [facility] Comment on above: Performed By: #### B MP, CRP #### [facility] [address] [place] [address] Dr. Moris Winter Sodium [Moles/Vol] 137 mmol/L Normal 136-145 [facility] Comment on above: Performed By: #### B MP, CRP #### [facility] [address] [address] [address] Moris Winter Urea nitrogen [Mass/Vol] 15.0 mg/dL Normal 7.0-18.0 [facility] Comment on above: Performed By: #### B MP, CRP #### [facility] [address] [address] [address] Moris Winter Urea nitrogen/Creatinine [Mass ratio] 18.8 mg/mg Normal [facility] Comment on above: Performed By: #### B MP, CRP #### [facility] [address] [address] [address] Moris Winter [facility] SED RATE 51 mm/hr Critically high <=20 [facility] Comment on above: Performed By: #### P REGU #### [facility] [address] [address] [address] Moris Winter Amphetamine Screen Ql (U)Ord ered By: TELMA Smith on 10-18-2021 Amphetamines Ql (U) Negative Negative [facility] Automated erythrocytes count in urine sediment (number/area)Ordered By: TELMA Smith on 10-18-2021 RBC Auto (Urine sed) [#/Area] 1-2 [HPF] 0-4 [facility] Automated leukocytes count i n urine sediment (number/area)Ordered By: TELMA Smith on 10-18-2021 WBC Auto (Urine sed) [#/Area] 20-49 [HPF] 0-4 [facility] Barbiturates [Presence] in U rineOrdered By: TELMA Smith on 10-18-2021 Barbiturates Ql (U) Negative Negative [facility] Basophils Auto (Bld) [#/Vol] Ordered By: TELMA Smith on 10-18-2021 Basophils (Bld) [#/Vol] 0.0 10*3/uL 0.0-0.2 [facility] Basophils/100 WBC Auto (Bld) Ordered By: TELMA Smith on 10-18-2021 Basophils/100 WBC (Bld) 0.3 % . [facility] Benzodiazepines [Presence] i n UrineOrdered By: TELMA Smith on 10-18-2021 Benzodiazepines Ql (U) Negative Negative Fi [facility] Bilirubin Test strip Ql (U)O rdered By: TELMA Smith on 10-18-2021 Bilirubin Ql (U) Negative Negative [facility] Blood hemoglobin measurement (mass/volume)Ordered By: TELMA Smith on 10-18-2021 Hemoglobin (Bld) [Mass/Vol] 11.3 g/dL 11.8-15.4 [facility] Blood leukocytes automated c ount (number/volume)Ordered By: TELMA Smith on 10-18-2021 WBC (Bld) [#/Vol] 10.1 10*3/uL 4.5-11.[address] [facility] COVID-19 SOFIAOrdered By: MD DESEAN Smith on 10-18-2021 SARS-CoV+SARS-CoV-2 (COVID-19) Ag IA.rapid Ql (Resp) Negative Negative [facility] Comment on above: This is a duplicate [place] SARS Antigen (AUTUMN) result to be used for statistical tracking purpose only. Color Auto (U)Ordered By: MD DESEAN Smith on 10-18-2021 Color (U) Yellow Yellow [facility] Eosinophils Auto (Bld) [#/Vo l]Ordered By: TELMA Smith on 10-18-2021 Eosinophils (Bld) [#/Vol] 0.1 10*3/uL 0.0-0.45 [facility] Eosinophils/100 WBC Auto (Bl d)Ordered By: TELMA Smith on 10-18-2021 Eosinophils/100 WBC (Bld) 1.3 % . [facility] Erythrocyte distribution wid th Auto (RBC) [Ratio]Ordered By: TELMA Smith on 10-18-2021 Erythrocyte distribution width (RBC) [Ratio] 15.6 % 11.9-15.3 [facility] Hematocrit Auto (Bld) [Volum e fraction]Ordered By: TELMA Simth on 10-18-2021 Hematocrit (Bld) [Volume fraction] 34.9 % 34.0-46.4 [facility] Ketones Auto test strip (U) [Mass/Vol]Ordered By: TELMA Smith on 10-18-2021 Ketones (U) [Mass/Vol] Trace Negative [facility] Ordered By: TELMA Smith on 10-18-2021 Opiates Ql (U) Negative Negative [facility] Laboratory - Hematology and Cell countsOrdered By: TELMA Smith on 10-18-2021 Nucleated RBC/100 WBC (Bld) [Ratio] 0.1 % 0-0.5 [facility] - UrinalysisOrder ed By: TELMA Smith on 10-18-2021 Hyaline casts LM Ql (Urine sed) 9-19 [LPF] 0-8 [facility] Lymphocytes Auto (Bld) [#/Vo l]Ordered By: TELMA Smith on 10-18-2021 Lymphocytes (Bld) [#/Vol] 1.7 10*3/uL 1.00-4.8 [facility] Lymphocytes/100 WBC Auto (Bl d)Ordered By: TELMA Smith on 10-18-2021 Lymphocytes/100 WBC (Bld) 17.0 % . [facility] MCH Auto (RBC) [Entitic mass ]Ordered By: TELMA Smith on 10-18-2021 MCH (RBC) [Entitic mass] 25.9 pg 24.7-34.3 [facility] MCHC Auto (RBC) [Mass/Vol]Or dered By: TELMA Smith on 10-18-2021 MCHC (RBC) [Mass/Vol] 32.5 g/dL 32.0-35.0 [facility] MCV Auto (RBC) [Entitic vol] Ordered By: TELMA Smith on 10-18-2021 MCV (RBC) [Entitic vol] 79.6 fL 80-100 [facility] Monocytes Auto (Bld) [#/Vol] Ordered By: TELMA Smith on 10-18-2021 Monocytes (Bld) [#/Vol] 0.8 10*3/uL 0.0-0.8 [facility] Monocytes/100 WBC Auto (Bld) Ordered By: TELMA Smith on 10-18-2021 Monocytes/100 WBC (Bld) 8.1 % . [facility] Neutrophils Auto (Bld) [#/Vo l]Ordered By: TELMA Smith on 10-18-2021 Neutrophils (Bld) [#/Vol] 7.4 10*3/uL 1.8-7.7 [facility] Neutrophils/100 WBC Auto (Bl d)Ordered By: TELMA Smith on 10-18-2021 Neutrophils/100 WBC (Bld) 73.3 % . [facility] Nitrite Test strip Ql (U)Ord ered By: TELMA Smith on 10-18-2021 Nitrite Ql (U) Negative Negative [facility] No Panel InformationOrdered By: TELMA Smith on 10-18-2021 SARS Antigen (LFIA) [facility] Phencyclidine Screen Ql (U)O rdered By: TELMA Smiht on 10-18-2021 Phencyclidine Ql (U) Negative Negative [facility] Comment on above: These are unconfirme d results and should not be used for legal purposes. Drug Cut-Off Concentration: AMPH 1000 ng/mL FAVIOLA 200 ng/mL THA 200 ng/mL COCM 300 ng/mL OP 300 ng/mL PCP 25 ng/mL Platelet mean volume Auto (B ld) [Entitic vol]Ordered By: TELMA Smith on 10-18-2021 Platelet mean volume (Bld) [Entitic vol] 9.7 fL 6.3-10.7 [facility] Platelets Auto (Bld) [#/Vol] Ordered By: TELMA Smith on 10-18-2021 Platelets (Bld) [#/Vol] 190 10*3/uL 150-450 [facility] Protein Auto test strip (U) [Mass/Vol]Ordered By: TELMA Smith on 10-18-2021 Protein (U) [Mass/Vol] Trace mg/dL Negative F [facility] RBC Auto (Bld) [#/Vol]Ordere d By: TELMA Smith on 10-18-2021 RBC (Bld) [#/Vol] 4.38 10*6/uL 3.60-5.[address] [facility] S. agalactiae Org specific c x Ql (Unsp spec)Ordered By: Radha Molina on 10-18-2021 Group B Streptococcus Culture Strep. agalactiae Grp B [facility] Specific gravity Auto test s trip (U) [Rel density]Ordered By: TELMA Smith on 10-18-2021 Specific gravity (U) [Rel density] 1.020 1.001-1.03 0 [facility] Squamous epithelial cells de tection in urine sediment by light microscopyOrdered By: TELMA Smith on 10-18-2021 Epithelial cells.squamous LM Ql (Urine sed) 5-9 [HPF] 0-2 [facility] Urine bacteria detection by automated methodOrdered By: TELMA Smith on 10-18-2021 Bacteria Auto Ql (U) 1+ None Seen [facility] Urine clarity by refractomet ry automatedOrdered By: TELMA Smith on 10-18-2021 Clarity Refractometry automated (U) Cloudy Clear [facility] Urine cocaine detectionOrder ed By: TELMA Smith on 10-18-2021 Cocaine Ql (U) Negative Negative [facility] Urine glucose measurement by automated test strip (mass/volume)Ordered By: SHELLIE Smith on 10-18-2021 Glucose Auto test strip (U) [Mass/Vol] Normal mg/dL Normal [facility] Urine hemoglobin detection b y automated test stripOrdered By: TELMA Smith on 10-18-2021 Hemoglobin Auto test strip Ql (U) Negative Negative [facility] Urine leukocyte esterase det ection by automated test stripOrdered By: TELMA Smith on 10-18-2021 Leukocyte esterase Auto test strip Ql (U) 3+ Negative [facility] Urobilinogen Auto test strip (U) [Mass/Vol]Ordered By: TELMA Smith on 10-18-2021 Urobilinogen (U) [Mass/Vol] Normal mg/dL Normal [facility] pH Auto test strip (U)Ordere d By: TELMA Smith on 10-18-2021 pH (U) 6.5 [pH] 5.0-9.0 [facility] UA (CLEAN/CATCH) DENTAL INSURANCE COORDINATOR/MICRO I F IND.on 08-31-2021 Bilirubin Ql (U) Negative Normal NEGATIVE [facility] Comment on above: Performed By: #### U ACSIND, UMICRO #### [facility] [address] [place] [address] Dr. Moris Winter Clarity (U) SL CLOUDY Abnormal CLEAR [facility] Comment on above: Performed By: #### U ACSIND, UMICRO #### [facility] [address] [place] [address] Dr. Moris Winter Color (U) LT. YELLOW Normal YELLOW [facility] Comment on above: Performed By: #### U ACSIND, UMICRO #### [facility] [address] [place] [address] Dr. Moris Winter Glucose Ql (U) Negative Normal NEGATIVE [facility] Comment on above: Performed By: #### U ACSIND, UMICRO #### [facility] [address] [place] [address] Dr. Moris Winter Hemoglobin Ql (U) TRACE-INTACT Abnormal NEGATIVE [facility] Comment on above: Performed By: #### U ACSIND, UMICRO #### [facility] [address] [place] [address] Dr. Moris Winter Ketones Ql (U) Negative Normal NEGATIVE [facility] Comment on above: Performed By: #### U ACSIND, UMICRO #### [facility] [address] [address] [address] Moris Winter LEUKOCYTES TRACE Abnormal NEGATIVE [facility] Comment on above: Performed By: #### U ACSIND, UMICRO #### [facility] [address] [place] [address] Dr. Moris Winter Nitrite Ql (U) Negative Normal NEGATIVE [facility] Comment on above: Performed By: #### U ACSIND, UMICRO #### [facility] [address] [address] [address] Moris Winter pH (U) 7.0 [pH] Normal 5-9 [facility] Comment on above: Performed By: #### U ACSNARENDRA, UMICRO #### [facility] [address] [address] [address] Moris Winter SPEC GRAVITY 1.010 Normal 1.005-<=1. 025 [facility] Comment on above: Performed By: #### U ACSNARENDRA, UMICRO #### [facility] [address] [place] [address] Dr. Moris Winter UA PROTEIN Negative Normal NEGATIVE/ TRACE [facility] Comment on above: Performed By: #### U ACSNARENDRA, UMICRO #### [facility] [address] [place] [address] Dr. Moris Winter UR MICRO IND INDICATED Normal [facility] Comment on above: Performed By: #### U ACSNARENDRA, ICRO #### [facility] [address] [place] [address] Dr. Moris Winter Urobilinogen Qn (U) 0.2 {Marcin'U}/dL Normal 0.2 - 1. 0 [facility] Comment on above: Performed By: #### U ACSNARENDRA, UMICRO #### [facility] [address] [place] [address] Dr. Moris Winter URINE MICROSCOPIC ONLYon BACTERIA NONE SEEN Normal NONE SEEN [facility] Comment on above: Performed By: #### U ACSNARENDRA, UMICRO #### [facility] [address] [place] [address] Dr. Moris Winter Bacteria identified Cx Nom (U) NOT INDICATED Normal [facility] Comment on above: Performed By: #### U ACSNARENDRA, UMICRO #### [facility] [address] [place] [address] Dr. Moris Winter CAST NONE SEEN Normal NONE SEEN [facility] Comment on above: Performed By: #### U ACSNARENDRA, UMICRO #### [facility] [address] [place] [address] Dr. Moris Winter Crystals LM Nom (Urine sed) NONE SEEN Normal NONE SEEN [facility] Comment on above: Performed By: #### U ACSIND, UMICRO #### [facility] [address] [place] [address] Dr. Moris Winter Epithelial cells LM Ql (Urine sed) MODERATE Abnormal NONE SEEN /RARE [facility] Comment on above: Performed By: #### U ACSIND, UMICRO #### [facility] [address] [place] [address] Dr. Moris Winter MUCOUS NONE SEEN Normal NONE SEEN [facility] Comment on above: Performed By: #### U ACSIND, UMICRO #### [facility] [address] [place] [address] Dr. Moris Winter RBC 0-2 Normal 0-2 [facility] Comment on above: Performed By: #### U ACSIND, UMICRO #### [facility] [address] [place] [address] Dr. Moris Winter WBC 0-2 Abnormal NONE SEEN [facility] Comment on above: Performed By: #### U ACSIND, UMICRO #### [facility] [address] [place] [address] Dr. Moris Winter Covid-19 PCR ([facility])on 07-17 SARS-CoV-2 (COVID-19) RNA SVETLANA+probe Ql (Unsp spec) Detected Critically abnormal NOT DETECTED [facility] Comment on above: Result Comment: This test is not yet approved or cleared by the [place] FDA. When there are no FDA-approved or cleared tests available, and other criteria are met, FDA can make tests available under an emergency access mechanism called an Emergency Use Authorization (EUA). The EUA for this test is supported by the [place] of Health and Human Service's declaration that [...] used). Performed By: #### P REGU #### [facility] [address] [address] [address] Moris Winter INFLUENZA A AND B AGon 08-08 [facility] SEE BELOW Normal [facility] Comment on above: Result Comment: Nega tive for Flu A protein angiten. Infection due to Flu A cannot be ruled out. Flu A angiten in the sample may be below the detection limit of the test. Performed By: #### P REGU #### [facility] [address] [address] [address] [facility] Normal [facility] Comment on above: Result Comment: Nega tive for Flu B protein antigen. Infection due to Flu B cannot be ruled out. Flu B antigen in the sample may be below the detection limit of the test. Performed By: #### P REGU #### [facility] [address] [place] [address] Dr. Moris Winter INFLUENZA A AG Negative Normal NEGATIVE SEE COMMENT [facility] Comment on above: Performed By: #### P REGU #### [facility] [address] [place] [address] Dr. Moris Winter INFLUENZA B AG Negative Normal NEGATIVE SEE COMMENT [facility] Comment on above: Performed By: #### P REGU #### [facility] [address] [place] [address] Dr. Moris Winter INTERNAL CONTROLS Within Normal Limits Normal Wi thin Normal Limits [facility] Comment on above: Performed By: #### P REGU #### [facility] [address] [place] [address] Dr. Moris Winter Serum or plasma beta choriog onadotropin measurement (units/volume)Ordered By: Radha Molina on 07-21-2021 [place] [address].00 m[IU]/mL [facility] Comment on above: Approximate Approxim ate hCG Gestational Age Range (mIU/ml) (weeks) 0.2-1 5-50 1-2 50-500 2-3 100-5,000 3-4 500-10,000 4-5 1,000-50,000 5-6 10,000-100,000 6-8 15,000-200,000 8-12 10,000-100,000 Operative Reporton 9 Operative Report MR#: [id number] S [facility] Pt. Name: Rosette Alba Room [...] placed Adaptic under the skin using a [place] and tied this down with a 5-0 [...] Carballo MD Date Trans: 08/03/2018 08:27 P/antony [id number] cc: Soraya Romo [address] [place] [id number] Normal [facility] POC GLUCOSE LABon 08-03-2018 Glucose [Mass/Vol] 105 mg/dL High 70-100 [facility] Comment on above: Performed By: #### 8 [id number] #### [address] [place] [address], [facility] POC URINE PREGNANCYon 2018 Beta HCG ( test) Ql (U) Negative Normal NEGATIVE [facility] Comment on above: Result Comment: Perf ormed in PACU Performed By: #### 8 [id number] #### [facility] [address] Vital Signs Date Time Vital Sign Value Performing Clinician Facility 03-09-2024 10:38-0500 Body mass index (BMI) [Ratio] 39.17 kg/m2 Camacho Mary DO Work Phone: [facility] 03-09-2024 10:38-0500 Body weight 100.31 kg Camacho Mary DO Work Phone: [facility] 03-09-2024 10:38-0500 Diastolic blood pressure 60 mm[Hg] Camacho Mary DO Work Phone: [facility] 03-09-2024 10:38-0500 Systolic blood pressure 116 mm[Hg] Camacho Mary DO Work Phone: [facility] 10-20-2023 08:28-0400 Body height 160.02 cm ACCOUNTS RECEIVABLE ASSISTANT-C Nataly Spasic Work Phone: [facility] 10-20-2023 08:28-0400 Body mass index (BMI) [Ratio] 38 kg/m2 ACCOUNTS RECEIVABLE ASSISTANT-C Nataly Spasic Work Phone: [facility] 10-20-2023 08:28-0400 Body temperature 97.7 [degF] ACCOUNTS RECEIVABLE ASSISTANT-C Nataly Spasic Work Phone: [facility] 10-20-2023 08:28-0400 Body weight 97.52 kg ACCOUNTS RECEIVABLE ASSISTANT-C Nataly Spasic Work Phone: [facility] 10-20-2023 08:28-0400 Diastolic blood pressure 74 mm[Hg] ACCOUNTS RECEIVABLE ASSISTANT-C Nataly Spasic Work Phone: [facility] 10-20-2023 08:28-0400 Heart rate 75 /min ACCOUNTS RECEIVABLE ASSISTANT-C Nataly Spasic Work Phone: [facility] 10-20-2023 08:28-0400 Respiratory rate 18 /min ACCOUNTS RECEIVABLE ASSISTANT-C Nataly Spasic Work Phone: [facility] 10-20-2023 08:28-0400 SaO2% (BldA) [Mass fraction] 99 % ACCOUNTS RECEIVABLE ASSISTANT-C Nataly Spasic Work Phone: [facility] 10-20-2023 08:28-0400 Systolic blood pressure 107 mm[Hg] ACCOUNTS RECEIVABLE ASSISTANT-C Nataly Spasic Work Phone: [facility] 10-04-2023 22:40-0400 Body height 160.02 cm ACCOUNTS RECEIVABLE ASSISTANT-C Nataly Spasic Work Phone: [facility] 10-04-2023 22:40-0400 Body temperature 97.7 [degF] ACCOUNTS RECEIVABLE ASSISTANT-C Nataly Spasic Work Phone: [facility] 10-04-2023 22:40-0400 Body weight 95.5 kg ACCOUNTS RECEIVABLE ASSISTANT-C Nataly Spasic Work Phone: [facility] 10-04-2023 22:40-0400 Diastolic blood pressure 75 mm[Hg] ACCOUNTS RECEIVABLE ASSISTANT-C Nataly Spasic Work Phone: [facility] 10-04-2023 22:40-0400 Heart rate 95 /min ACCOUNTS RECEIVABLE ASSISTANT-C Nataly Spasic Work Phone: [facility] 10-04-2023 22:40-0400 Respiratory rate 16 /min ACCOUNTS RECEIVABLE ASSISTANT-C Nataly Spasic Work Phone: [facility] 10-04-2023 22:40-0400 SaO2% (BldA) [Mass fraction] 98 % ACCOUNTS RECEIVABLE ASSISTANT-C Nataly Spasic Work Phone: [facility] 10-04-2023 22:40-0400 Systolic blood pressure 132 mm[Hg] ACCOUNTS RECEIVABLE ASSISTANT-C Nataly Spasic Work Phone: [facility] 09-26-2023 21:36-0400 Body temperature 98.1 [degF] ACCOUNTS RECEIVABLE ASSISTANT-C Nataly Spasic Work Phone: [facility] 09-26-2023 21:36-0400 Diastolic blood pressure 74 mm[Hg] ACCOUNTS RECEIVABLE ASSISTANT-C Nataly Spasic Work Phone: [facility] 09-26-2023 21:36-0400 Heart rate 90 /min ACCOUNTS RECEIVABLE ASSISTANT-C Nataly Spasic Work Phone: [facility] 09-26-2023 21:36-0400 Respiratory rate 16 /min ACCOUNTS RECEIVABLE ASSISTANT-C Nataly Spasic Work Phone: [facility] 09-26-2023 21:36-0400 SaO2% (BldA) [Mass fraction] 99 % ACCOUNTS RECEIVABLE ASSISTANT-C Natayl Spasic Work Phone: [facility] 09-26-2023 21:36-0400 Systolic blood pressure 145 mm[Hg] ACCOUNTS RECEIVABLE ASSISTANT-C Nataly Spasic Work Phone: [facility] 09-26-2023 21:35-0400 Body height 160.02 cm ACCOUNTS RECEIVABLE ASSISTANT-C Nataly Spasic Work Phone: [facility] 09-26-2023 21:35-0400 Body weight 96.7 kg ACCOUNTS RECEIVABLE ASSISTANT-C Nataly Spasic Work Phone: [facility] 08-20-2023 23:05-0400 Body height 160.02 cm ACCOUNTS RECEIVABLE ASSISTANT-C Nataly Spasic Work Phone: [facility] 08-20-2023 23:05-0400 Body temperature 98.3 [degF] ACCOUNTS RECEIVABLE ASSISTANT-C Nataly Spasic Work Phone: [facility] 08-20-2023 23:05-0400 Body weight 97.5 kg ACCOUNTS RECEIVABLE ASSISTANT-C Nataly Spasic Work Phone: [facility] 08-20-2023 23:05-0400 Diastolic blood pressure 66 mm[Hg] ACCOUNTS RECEIVABLE ASSISTANT-C Nataly Spasic Work Phone: [facility] 08-20-2023 23:05-0400 Heart rate 90 /min ACCOUNTS RECEIVABLE ASSISTANT-C Nataly Spasic Work Phone: [facility] 08-20-2023 23:05-0400 Respiratory rate 20 /min ACCOUNTS RECEIVABLE ASSISTANT-C Nataly Spasic Work Phone: [facility] 08-20-2023 23:05-0400 SaO2% (BldA) [Mass fraction] 99 % ACCOUNTS RECEIVABLE ASSISTANT-C Nataly Spasic Work Phone: [facility] 08-20-2023 23:05-0400 Systolic blood pressure 136 mm[Hg] ACCOUNTS RECEIVABLE ASSISTANT-C Nataly Spasic Work Phone: [phone])361-[address] [place] [address] 02-13-2023 21:40-0500 Body temperature 97.7 [degF] ACCOUNTS RECEIVABLE ASSISTANT-C Nataly Spasic Work Phone: [phone])075-4412[address] [place] [address] 02-13-2023 21:40-0500 Diastolic blood pressure 87 mm[Hg] ACCOUNTS RECEIVABLE ASSISTANT-C Nataly Spasic Work Phone: [facility] 02-13-2023 21:40-0500 Heart rate 100 /min ACCOUNTS RECEIVABLE ASSISTANT-C Nataly Spasic Work Phone: [facility] 02-13-2023 21:40-0500 Respiratory rate 18 /min ACCOUNTS RECEIVABLE ASSISTANT-C Nataly Spasic Work Phone: [facility] 02-13-2023 21:40-0500 SaO2% (BldA) [Mass fraction] 96 % ACCOUNTS RECEIVABLE ASSISTANT-C Nataly Spasic Work Phone: [facility] 02-13-2023 21:40-0500 Systolic blood pressure 140 mm[Hg] ACCOUNTS RECEIVABLE ASSISTANT-C Nataly Spasic Work Phone: [facility] 02-13-2023 11:10-0500 Body height 160.02 cm ACCOUNTS RECEIVABLE ASSISTANT-C Nataly Spasic Work Phone: [facility] 02-13-2023 11:10-0500 Body weight 99.79 kg ACCOUNTS RECEIVABLE ASSISTANT-C Nataly Spasic Work Phone: [facility] 02-01-2023 19:30-0500 Body temperature 97.3 [degF] ACCOUNTS RECEIVABLE ASSISTANT-C Nataly Spasic Work Phone: [facility] 02-01-2023 19:30-0500 Diastolic blood pressure 75 mm[Hg] ACCOUNTS RECEIVABLE ASSISTANT-C Nataly Spasic Work Phone: [facility] 02-01-2023 19:30-0500 Heart rate 94 /min ACCOUNTS RECEIVABLE ASSISTANT-C Nataly Spasic Work Phone: [facility] 02-01-2023 19:30-0500 Respiratory rate 14 /min ACCOUNTS RECEIVABLE ASSISTANT-C Nataly Spasic Work Phone: [facility] 02-01-2023 19:30-0500 SaO2% (BldA) [Mass fraction] 98 % ACCOUNTS RECEIVABLE ASSISTANT-C Nataly Spasic Work Phone: [facility] 02-01-2023 19:30-0500 Systolic blood pressure 123 mm[Hg] ACCOUNTS RECEIVABLE ASSISTANT-C Nataly Spasic Work Phone: [facility] 01-31-2023 09:00-0500 Body temperature 98 [degF] ACCOUNTS RECEIVABLE ASSISTANT-C Nataly Spasic Work Phone: [facility] 01-31-2023 09:00-0500 Respiratory rate 16 /min ACCOUNTS RECEIVABLE ASSISTANT-C Nataly Spasic Work Phone: [facility] 01-31-2023 08:46-0500 Diastolic blood pressure 57 mm[Hg] ACCOUNTS RECEIVABLE ASSISTANT-C Nataly Spasic Work Phone: [facility] 01-31-2023 08:46-0500 Heart rate 112 /min ACCOUNTS RECEIVABLE ASSISTANT-C Nataly Spasic Work Phone: [facility] 01-31-2023 08:46-0500 Systolic blood pressure 112 mm[Hg] ACCOUNTS RECEIVABLE ASSISTANT-C Nataly Spasic Work Phone: [facility] 01-31-2023 06:31-0500 SaO2% (BldA) [Mass fraction] 96 % ACCOUNTS RECEIVABLE ASSISTANT-C Nataly Spasic Work Phone: [facility] 01-31-2023 00:08-0500 Body height 160.02 cm ACCOUNTS RECEIVABLE ASSISTANT-C Nataly Spasic Work Phone: [facility] 01-31-2023 00:08-0500 Body weight 97.52 kg ACCOUNTS RECEIVABLE ASSISTANT-C Nataly Spasic Work Phone: [facility] 01-21-2023 09:56-0500 Body height 157.48 cm ACCOUNTS RECEIVABLE ASSISTANT-C Nataly Spasic Work Phone: [facility] 01-21-2023 09:56-0500 Body weight 81.64 kg ACCOUNTS RECEIVABLE ASSISTANT-C Nataly Spasic Work Phone: [facility] 12-01-2022 18:06-0400 Diastolic blood pressure 75 mm[Hg] ACCOUNTS RECEIVABLE ASSISTANT-C Naatly Spasic Work Phone: [facility] 12-01-2022 18:06-0400 Heart rate 109 /min ACCOUNTS RECEIVABLE ASSISTANT-C Nataly Spasic Work Phone: [facility] 12-01-2022 18:06-0400 Respiratory rate 17 /min ACCOUNTS RECEIVABLE ASSISTANT-C Nataly Spasic Work Phone: [facility] 12-01-2022 18:06-0400 SaO2% (BldA) [Mass fraction] 99 % ACCOUNTS RECEIVABLE ASSISTANT-C Nataly Spasic Work Phone: [facility] 12-01-2022 18:06-0400 Systolic blood pressure 123 mm[Hg] ACCOUNTS RECEIVABLE ASSISTANT-C Nataly Spasic Work Phone: [facility] 12-01-2022 14:32-0400 Body height 160.02 cm ACCOUNTS RECEIVABLE ASSISTANT-C Nataly Spasic Work Phone: [facility] 12-01-2022 14:32-0400 Body temperature 97.6 [degF] ACCOUNTS RECEIVABLE ASSISTANT-C Nataly Spasic Work Phone: [facility] 12-01-2022 14:32-0400 Body weight 101.2 kg ACCOUNTS RECEIVABLE ASSISTANT-C Nataly Spasic Work Phone: [facility] 11-20-2022 19:00-0400 Respiratory rate 16 /min ACCOUNTS RECEIVABLE ASSISTANT-C Nataly Spasic Work Phone: [facility] 11-20-2022 18:14-0400 Diastolic blood pressure 65 mm[Hg] ACCOUNTS RECEIVABLE ASSISTANT-C Nataly Spasic Work Phone: [facility] 11-20-2022 18:14-0400 Heart rate 100 /min ACCOUNTS RECEIVABLE ASSISTANT-C Nataly Spasic Work Phone: [facility] 11-20-2022 18:14-0400 Systolic blood pressure 131 mm[Hg] ACCOUNTS RECEIVABLE ASSISTANT-C Nataly Spasic Work Phone: [facility] 11-20-2022 18:05-0400 SaO2% (BldA) [Mass fraction] 99 % ACCOUNTS RECEIVABLE ASSISTANT-C Nataly Spasic Work Phone: [facility] 11-20-2022 17:21-0400 Body height 160.02 cm ACCOUNTS RECEIVABLE ASSISTANT-C Nataly Spasic Work Phone: [facility] 11-20-2022 17:21-0400 Body weight 98.88 kg ACCOUNTS RECEIVABLE ASSISTANT-C Nataly Spasic Work Phone: [facility] 11-19-2022 13:49-0400 Respiratory rate 16 /min ACCOUNTS RECEIVABLE ASSISTANT-C Nataly Spasic Work Phone: [facility] 11-19-2022 13:30-0400 Body temperature 97.4 [degF] ACCOUNTS RECEIVABLE ASSISTANT-C Nataly Spasic Work Phone: [facility] 11-19-2022 12:53-0400 Diastolic blood pressure 71 mm[Hg] ACCOUNTS RECEIVABLE ASSISTANT-C Nataly Spasic Work Phone: [facility] 11-19-2022 12:53-0400 Heart rate 109 /min ACCOUNTS RECEIVABLE ASSISTANT-C Nataly Spasic Work Phone: [facility] 11-19-2022 12:53-0400 Systolic blood pressure 125 mm[Hg] ACCOUNTS RECEIVABLE ASSISTANT-C Nataly Spasic Work Phone: [facility] 11-19-2022 12:49-0400 SaO2% (BldA) [Mass fraction] 99 % ACCOUNTS RECEIVABLE ASSISTANT-C Nataly Spasic Work Phone: [facility] 11-19-2022 12:23-0400 Body height 160.02 cm ACCOUNTS RECEIVABLE ASSISTANT-C Nataly Spasic Work Phone: [facility] 11-19-2022 12:23-0400 Body weight 98.88 kg ACCOUNTS RECEIVABLE ASSISTANT-C Nataly Spasic Work Phone: [facility] 10-18-2021 05:08-0400 Diastolic blood pressure 58 mm[Hg] DO Obdulia Oneil Work Phone: [facility] 10-18-2021 05:08-0400 Heart rate 96 /min DO Obdulia Oneil Work Phone: [facility] 10-18-2021 05:08-0400 SaO2% (BldA) [Mass fraction] 98 % DO Obdulia Oneil Work Phone: [facility] 10-18-2021 05:08-0400 Systolic blood pressure 118 mm[Hg] DO Obdulia Oneil Work Phone: [facility] 10-18-2021 05:00-0400 Body temperature 98.3 [degF] DO Obdulia Oneil Work Phone: [facility] 10-18-2021 05:00-0400 Respiratory rate 16 /min DO Obdulia Oneil Work Phone: [facility] 10-18-2021 01:57-0400 Body weight 102.51 kg DO Obdulia Oneil Work Phone: [facility] 10-18-2021 01:31-0400 Body height 160.02 cm DO Obdulia Oneil Work Phone: [facility] Encounters Encounter Date Encounter Type Care Provider Facility Start: 03-17-2024 End: 03-20-2024 Chart abstracting Oscar Nolan MD Work Phone: [facility] Start: 03-14-2024 End: 03-14-2024 Clinisync Result Encounter Camacho Mary DO Work Phone: [facility] Unsolicited Start: 03-14-2024 End: 03-14-2024 Clinisync Result Encounter Camacho Mary DO Work Phone: [facility] Unsolicited Start: 03-09-2024 End: 03-09-2024 Bamboo flowsheet Camacho Mary DO Work Phone: [facility] Start: 03-09-2024 End: 03-09-2024 Bamboo flowsheet Camacho Mary DO Work Phone: [facility] Start: 03-09-2024 End: 03-09-2024 Office outpatient visit 15 minutes Camacho Mary DO Work Phone: [facility] Comment on above: Second trimester pre gnancy; 16 weeks gestation of ; History of delivery, currently ; Diabetes mellitus screening; History of gestational diabetes Start: 03-09-2024 End: 03-09-2024 ambulatory CAMACHO MARY Not Available Start: 02-25-2024 End: 02-25-2024 Clinisync Result Encounter Camacho Mary DO Work Phone: [facility] Unsolicited Start: 02-25-2024 End: 02-25-2024 Clinisync Result Encounter Camacho Mary DO Work Phone: [facility] Unsolicited Start: 02-03-2024 End: 02-03-2024 ambulatory [facility] Mary Nurse [facility] Comment on above: GA: 11w1d Start: 11-03-2023 ambulatory Nataly Toure Facility :[facility] Start: 10-20-2023 Registered Recurring ACCOUNTS RECEIVABLE ASSISTANT-C Andrez a Spasic Work Phone: [facility] Acute Work Phone: Start: 10-20-2023 End: 10-20-2023 ambulatory ACCOUNTS RECEIVABLE ASSISTANT-C Nataly E Spasic Work Phone: [facility] Work Phone: Start: 10-20-2023 End: 10-20-2023 Patient encounter procedure ACCOUNTS RECEIVABLE ASSISTANT-C Nataly Spasic Work Phone: [facility] Ambulatory Work Phone: Start: 10-07-2023 End: 10-07-2023 Patient encounter procedure ACCOUNTS RECEIVABLE ASSISTANT-C Nataly Spasic Work Phone: [facility] Ctr-Ultrasound [place] Work Phone: Start: 10-07-2023 End: 10-07-2023 ambulatory ACCOUNTS RECEIVABLE ASSISTANT-C Nataly E Spasic Work Phone: [facility] Work Phone: Start: 10-04-2023 End: 10-05-2023 Emergency department patient visit ACCOUNTS RECEIVABLE ASSISTANT-C Nataly Spasic Work Phone: [facility] Ctr-Emergency Room Work Phone: Start: 09-30-2023 End: 09-30-2023 ambulatory ACCOUNTS RECEIVABLE ASSISTANT-C Nataly E Spasic Work Phone: [facility] Work Phone: Start: 09-30-2023 End: 09-30-2023 Departed Referred ACCOUNTS RECEIVABLE ASSISTANT-C Nataly Spasic Work Phone: [facility] Ctr-Lab [place] Work Phone: Start: 09-26-2023 End: 09-27-2023 Emergency department patient visit ACCOUNTS RECEIVABLE ASSISTANT-C Nataly Spasic Work Phone: [facility] Ctr-Emergency Room Work Phone: Start: 08-20-2023 End: 08-21-2023 Emergency department patient visit ACCOUNTS RECEIVABLE ASSISTANT-C Nataly Spasic Work Phone: [facility] Ctr-Emergency Room Work Phone: Start: 08-03-2023 End: 08-03-2023 ambulatory Nataly E Spasic [facility] Ctr Work Phone: Start: 08-03-2023 End: 08-03-2023 Departed Referred ACCOUNTS RECEIVABLE ASSISTANT-C Nataly Spasic Work Phone: [facility] Ctr-[facility] Start: 05-27-2023 End: 05-27-2023 ambulatory RADHA MOLINA Not Available Start: 05-25-2023 End: 05-25-[address] Not Available Start: 05-05-2023 End: 05-05-2023 ambulatory RADHA MOLINA Not Available Start: 04-15-2023 End: 04-15-2023 ambulatory Nataly E Spasic Facility:[facility] Start: 03-17-2023 End: 03-17-2023 Patient encounter procedure PHYSICIAN NO [facility] Ctr-Lab [place] Work Phone: Start: 03-17-2023 End: 03-17-2023 ambulatory PHYSICIAN NO [facility] Ctr Work Phone: Start: 03-04-2023 End: 03-04-2023 ambulatory PHYSICIAN NO [facility] Ctr Work Phone: Start: 03-04-2023 End: 03-04-2023 Departed Referred PHYSICIAN [facility] Ctr-[facility] Start: 02-13-2023 End: 02-13-2023 Evaluation and management of inpatient ACCOUNTS RECEIVABLE ASSISTANT-C Nataly Spasic Work Phone: [facility] Ctr-[facility] [place] Work Phone: Start: 02-01-2023 End: 02-01-2023 Patient encounter procedure ACCOUNTS RECEIVABLE ASSISTANT-C Nataly Spasic Work Phone: [facility] Ctr-3 [facility] Labor - O/P Start: 02-01-2023 End: 02-01-2023 ambulatory ACCOUNTS RECEIVABLE ASSISTANT-C Nataly E Spasic Work Phone: [facility] Ctr Work Phone: Start: 01-30-2023 End: 01-31-2023 Patient encounter procedure ACCOUNTS RECEIVABLE ASSISTANT-C Nataly Spasic Work Phone: [facility] Ctr-3 [facility] Labor - O/P Start: 01-30-2023 End: 01-31-2023 ambulatory ACCOUNTS RECEIVABLE ASSISTANT-C Nataly E Spasic Work Phone: [facility] Ctr Work Phone: Start: 01-22-2023 End: 01-22-2023 Patient encounter procedure ACCOUNTS RECEIVABLE ASSISTANT-C Nataly Spasic Work Phone: [facility] Ctr-3 [facility] Labor - O/P Start: 01-22-2023 End: 01-22-2023 ambulatory ACCOUNTS RECEIVABLE ASSISTANT-C Nataly E Spasic Work Phone: [facility] Ctr Work Phone: Start: 01-21-2023 End: 01-21-2023 Patient encounter procedure ACCOUNTS RECEIVABLE ASSISTANT-C Nataly Spasic Work Phone: [facility] Ctr-3 [facility] Labor - O/P Start: 01-21-2023 End: 01-21-2023 ambulatory ACCOUNTS RECEIVABLE ASSISTANT-C Nataly E Spasic Work Phone: [facility] Ctr Work Phone: Start: 01-05-2023 End: 01-05-2023 ambulatory ACCOUNTS RECEIVABLE ASSISTANT-C Nataly E Spasic Work Phone: [facility] Ctr Work Phone: Start: 01-05-2023 End: 01-05-2023 Departed Referred ACCOUNTS RECEIVABLE ASSISTANT-C Nataly Spasic Work Phone: [facility] Ctr-Lab [place] Work Phone: Start: 12-22-2022 End: 12-22-2022 Patient encounter procedure ACCOUNTS RECEIVABLE ASSISTANT-C Nataly Spasic Work Phone: [facility] Ctr-Lab [place] Work Phone: Start: 12-22-2022 End: 12-22-2022 ambulatory ACCOUNTS RECEIVABLE ASSISTANT-C Nataly E Spasic Work Phone: [facility] Ctr Work Phone: Start: 12-08-2022 End: 12-08-2022 ambulatory ACCOUNTS RECEIVABLE ASSISTANT-C Nataly E Spasic Work Phone: [facility] Ctr Work Phone: Start: 12-08-2022 End: 12-08-2022 Departed Referred ACCOUNTS RECEIVABLE ASSISTANT-C Nataly Spasic Work Phone: [facility] Ctr-Lab [place] Work Phone: Start: 12-03-2022 End: 12-03-2022 ambulatory ACCOUNTS RECEIVABLE ASSISTANT-C Nataly E Spasic Work Phone: [facility] Ctr Work Phone: Start: 12-03-2022 End: 12-03-2022 Departed Referred ACCOUNTS RECEIVABLE ASSISTANT-C Nataly Spasic Work Phone: [facility] Ctr-[facility] Start: 12-01-2022 End: 12-01-2022 Emergency department patient visit ACCOUNTS RECEIVABLE ASSISTANT-C Nataly Spasic Work Phone: [facility] Ctr-Emergency Room Work Phone: Start: 11-21-2022 End: 11-21-2022 ambulatory ACCOUNTS RECEIVABLE ASSISTANT-C Nataly E Spasic Work Phone: [facility] Ctr Work Phone: Start: 11-21-2022 End: 11-21-2022 Patient encounter procedure ACCOUNTS RECEIVABLE ASSISTANT-C Nataly Spasic Work Phone: [facility] Ctr-3 [place] Labor - O/P Start: 11-20-2022 End: 11-20-2022 ambulatory ACCOUNTS RECEIVABLE ASSISTANT-C Nataly E Spasic Work Phone: [facility] Ctr Work Phone: Start: 11-20-2022 End: 11-20-2022 Patient encounter procedure ACCOUNTS RECEIVABLE ASSISTANT-C Nataly Spasic Work Phone: [facility] Ctr-3 [facility] Labor - O/P Start: 11-19-2022 End: 11-19-2022 ambulatory ACCOUNTS RECEIVABLE ASSISTANT-C Nataly E Spasic Work Phone: [facility] Ctr Work Phone: Start: 11-19-2022 End: 11-19-2022 Patient encounter procedure ACCOUNTS RECEIVABLE ASSISTANT-C Nataly Spasic Work Phone: [facility] Ctr-3 [facility] - O/P Start: 07-13-2022 End: 07-14-2022 ambulatory YNES HARDEN . Facility: Start: 06-23-2022 End: 06-23-2022 ambulatory ACCOUNTS RECEIVABLE ASSISTANT-C Nataly E Spasic Work Phone: [facility] Ctr Work Phone: Start: 06-23-2022 End: 06-23-2022 Patient encounter procedure ACCOUNTS RECEIVABLE ASSISTANT-C Nataly Spasic Work Phone: [facility] Bkc-Tkt-[facility]bdgng[facility] Testing Work Phone: Start: 06-16-2022 End: 06-16-2022 Departed Referred ACCOUNTS RECEIVABLE ASSISTANT-C Nataly Spasic Work Phone: [facility] Ctr-[facility] Start: 06-04-2022 End: 06-04-2022 ambulatory ACCOUNTS RECEIVABLE ASSISTANT-C Nataly E Spasic Work Phone: [facility] Ctr Work Phone: Start: 06-04-2022 End: 06-04-2022 Patient encounter procedure ACCOUNTS RECEIVABLE ASSISTANT-C Nataly Spasic Work Phone: [facility] Ctr-Ultrasound [place] Work Phone: Start: 06-03-2022 End: 06-03-[address] SHARMILA BAIG . Facility:[facility] Start: 05-28-2022 End: 05-28-2022 ambulatory ACCOUNTS RECEIVABLE ASSISTANT-C Nataly Tejal Work Phone: [facility] Ctr Work Phone: Start: 05-28-2022 End: 05-28-2022 Departed Referred ACCOUNTS RECEIVABLE ASSISTANT-C Nataly Tejal Work Phone: [facility] Ctr-[place] [facility] Start: 03-15-2022 End: 03-16-2022 ambulatory CORRINA DHALIWAL Facility:[facility] Start: 10-18-2021 End: 10-18-2021 Evaluation and management of inpatient DO Obdulia Oneil Work Phone: [facility] Ctr-3 [place] Labor and Delivery Start: 10-16-2021 End: 10-16-2021 Departed Referred DO Obdulia Oneil Work Phone: [facility] Ctr-Lab [place] Start: 08-31-2021 End: 08-31-[address] CAMACHO HERNANDEZ . Facility:[facility] Start: 08-08-2021 End: 08-08-2021 ambulatory CORRINA DHALIWAL Facility:[facility] Start: 07-21-2021 End: 07-21-2021 Patient encounter procedure DO Obdulia Oneil Work Phone: [facility] Ctr-Lab [place] Start: 08-03-2018 End: 08-04-2018 Patient encounter procedure SHARLA HICKS Facility:[facility] Procedures Date Procedure Procedure Detail Performing Clinician Start: 03-14-2024 US OB CERVICAL LENGTH C mildred Hernandez DO Work Phone: Start: 03-09-2024 Urnls dip stick/tabl et rgnt non-auto w/o micrscp Camacho Hernandez DO Work Phone: Start: 02-25-2024 BOX TEST Camacho nguyen DO Work Phone: Start: 02-25-2024 FREE CELL DNA (NON-[facility]) Not In System Ref Prov Start: 02-03-2024 End: 02-03-2024 Urnls dip stick/tablet rgnt non-auto w/o micrscp Camacho Hernandez DO Work Phone: Start: 10-07-2023 Diagnostic radiograp hy of abdomen ACCOUNTS RECEIVABLE ASSISTANT-C Nataly Jerniganc Work Phone: Start: 10-07-2023 Ultrasonography of liver ACCOUNTS RECEIVABLE ASSISTANT-C Nataly Shayleesic Work Phone: Start: 10-07-2023 US scan of thyroid ACCOUNTS RECEIVABLE ASSISTANT-C Nataly Spasic Work Phone: Start: 09-26-2023 CT of lumbar spine w ithout contrast ACCOUNTS RECEIVABLE ASSISTANT-C Nataly Shayleesic Work Phone: Start: 09-26-2023 Urine culture ACCOUNTS RECEIVABLE ASSISTANT-C Andrez a Shayleesic Work Phone: Start: 02-13-2023 Urine culture PHYSICIAN NO FAMILY Start: 02-01-2023 Urine culture ACCOUNTS RECEIVABLE ASSISTANT-C Andrez a Spasic Work Phone: Start: 01-05-2023 Streptococcus agalac tiae culture ACCOUNTS RECEIVABLE ASSISTANT-C Nataly Spasic Work Phone: Start: 12-01-2022 Plain chest X-ray ACCOUNTS RECEIVABLE ASSISTANT-C Nataly Junesic Work Phone: Start: 12-01-2022 Respiratory Panel (PCR) ACCOUNTS RECEIVABLE ASSISTANT-C Nataly Spasic Work Phone: Start: 11-20-2022 Ultrasound scan - obstetric ACCOUNTS RECEIVABLE ASSISTANT-C Nataly Spasic Work Phone: Start: 06-04-2022 US scan of gallbladder ACCOUNTS RECEIVABLE ASSISTANT-C Nataly Spasic Work Phone: Start: 08-03-2018 Anes integ extremiti es ant trunk & perineum nos AREN PITT Start: 08-03-2018 Repair nail bed SHARLA E BRAHEIM SARS Antigen (LFIA) DO Luis Enrique Oneil Work Phone: Streptococcus agalac tiae culture DO Obdulia Oneil Work Phone: Plan of Treatment Date Care Activity Detail Author Start: 04-13-2024 End: 04-13-2024 Patient encounter procedure [facility] Start: 04-06-2024 End: 04-06-2024 Patient encounter procedure 04/06/2024 10:30 AM EST Routine [facility] [address] [place] [id number] Kim Khoury PA [address] [place] [address] [facility] Start: 03-09-2024 End: 05-07-2024 Alpha fetoprotein, maternal Alpha fetoprotein, maternal Lab Routine Second trimester 16 weeks gestation of Expected: 03/09/2024 (Approximate), Expires: 05/07/2024 [facility] Work Phone: Comment on above: Expected: 03/09/2024 (Approximate), Expires: 05/07/2024 Start: 03-09-2024 End: 03-09-2025 Measurement of glucose 1 hour after glucose challenge for glucose tolerance test Glucose tolerance, 1 hour Lab Routine History of delivery, currently History of gestational diabetes Expected: 03/09/2024 (Approximate), Expires: 03/09/2025 [facility] Comment on above: Expected: 03/09/2024 (Approximate), Expires: 03/09/2025 Start: 03-09-2024 End: 03-09-2025 US Pelvis transvaginal US OB transvaginal Imaging Routine History of delivery, currently Expected: 03/09/2024, Expires: 03/09/2025 [facility] Comment on above: Expected: 03/09/2024 , Expires: 03/09/2025 Start: 03-09-2024 End: 03-09-2024 Patient encounter procedure [facility] Comment on above: Arrived Start: 02-03-2024 End: 02-02-2025 ABO/Rh ABO/Rh Lab Routine Missed menses , unspecified gestational age Expected: 02/03/2024 (Approximate), Expires: 02/02/2025 [facility] Comment on above: Expected: 02/03/2024 (Approximate), Expires: 02/02/2025 Start: 02-03-2024 End: 02-02-2025 Blood type and Indirect antibody screen panel - Blood Type and screen Lab Routine Missed menses , unspecified gestational age Expected: 02/03/2024 (Approximate), Expires: 02/02/2025 [facility] Work Phone: Comment on above: Expected: 02/03/2024 (Approximate), Expires: 02/02/2025 Start: 02-03-2024 End: 02-02-2025 Drugs of abuse panel - Urine by Screen method Rapid drug screen, urine Lab Routine , unspecified gestational age Encounter for supervision of normal first in first trimester Expected: 02/03/2024 (Approximate), Expires: 02/02/2025 [facility] Comment on above: Expected: 02/03/2024 (Approximate), Expires: 02/02/2025 Start: 02-03-2024 End: 02-02-2025 US Pelvis transvaginal US OB transvaginal Imaging Routine Missed menses Expected: 02/03/2024 (Approximate), Expires: 02/02/2025 [facility] Comment on above: Expected: 02/03/2024 (Approximate), Expires: 02/02/2025 Start: 10-17-2023 Influenza vaccination N [facility] Start: 09-26-2023 CT Lumbar spine WO contrast [facility] Start: 09-26-2023 CT of lumbar spine w ithout contrast CT lumbar spine wo con [facility] Start: 09-26-2023 Bacteria identified in Urine by Culture [facility] Start: 08-20-2023 [facility] Start: 02-14-2023 [facility] Start: 02-13-2023 End: 02-13-2023 [facility] Start: 02-13-2023 Bacteria identified in Urine by Culture [facility] Start: 02-13-2023 Delivery of Products of Conception, External Approach Delivery of Products of Conception, External Approach [facility] Start: 02-13-2023 Drainage of Amniotic Fluid, Therapeutic from Products of Conception, Via Natural or Artificial Opening Drainage of Amniotic Fluid, Therapeutic from Products of Conception, Via Natural or Artificial Opening [facility] Start: 02-13-2023 Hospital admission [facility] Start: 02-13-2023 Hospital admission [facility] Start: 02-13-2023 End: 02-13-2023 [facility] Start: 02-01-2023 [facility] Start: 02-01-2023 Hospital admission [facility] Start: 02-01-2023 Bacteria identified in Urine by Culture [facility] Start: 01-31-2023 [facility] Start: 01-30-2023 Hospital admission [facility] Start: 01-22-2023 [facility] Start: 01-21-2023 [facility] Start: 01-05-2023 Group B Streptococcu s Culture Group B Streptococcus Culture [facility] Start: 12-01-2022 Respiratory Panel (PCR) Respiratory Panel (PCR) [facility] Start: 11-21-2022 [facility] Start: 11-20-2022 [facility] Start: 11-20-2022 Hospital admission [facility] Start: 11-19-2022 [facility] Start: 11-19-2022 Hospital admission [facility] Start: 11-19-2022 [facility] Start: 10-18-2021 End: 10-18-2021 [facility] Work Phone: Start: 10-18-2021 Hospital admission [facility] Work Phone: Start: 2020 Screening for malign ant neoplasm of cervix Pap Smear [facility] Start: 02-16-2020 DTaP,Tdap and Td Vac cines (2 - Td or Tdap) DTaP,Tdap and Td Vaccines (2 - Td or Tdap) [facility] Start: 2017 Adult BMI Screening Adult BMI Screen ing [facility] Start: 2011 Depression Screening Depression Scre ening [facility] Start: 2011 Tobacco Screening Tobacco Screening [facility] Bacteria identified in Urine by Culture [facility] Bacteria identified in Urine by Culture Urine culture Microbiology Routine Missed menses Ordered: 02/03/2024 [facility] Comment on above: Ordered: 02/03/2024 CBC W Auto Different ial panel - Blood CBC and differential Lab Routine Missed menses , unspecified gestational age Ordered: 02/03/2024 [facility] Comment on above: Ordered: 02/03/2024 Glucose measurement estimated from glycated hemoglobin [facility] Hemoglobin A1c/Hemoglobin.total in Blood [facility] Hemoglobin A1c/Hemoglobin.total in Blood Hemoglobin A1c Lab Routine Missed menses , unspecified gestational age Ordered: 02/03/2024 [facility] Comment on above: Ordered: 02/03/2024 Hepatitis B virus almeida rface Ag [Presence] in Serum or Plasma by Immunoassay Hepatitis B surface antigen Lab Routine Missed menses , unspecified gestational age Ordered: 02/03/2024 [facility] Comment on above: Ordered: 02/03/2024 Hepatitis C virus Ab [Presence] in Serum or Plasma by Immunoassay Hepatitis C antibody Lab Routine Missed menses , unspecified gestational age Ordered: 02/03/2024 [facility] Comment on above: Ordered: 02/03/2024 HIV-1/HIV-2 antigen/antibody combination immunoassay HIV-1 and HIV-2 antibodies Lab Routine Missed menses , unspecified gestational age Ordered: 02/03/2024 [facility] Comment on above: Ordered: 02/03/2024 Insulin [Units/volum e] in Serum or Plasma [facility] Insulin [Units/volum e] in Serum or Plasma [facility] Insulin [Units/volum e] in Serum or Plasma [facility] Patient Education [facility] Work Phone: Patient referral [facility] Work Phone: Reagin Ab [Presence] in Serum by R [facility] Work Phone: Reagin Ab [Presence] in Serum by R [facility] Reagin Ab [Presence] in Serum by RPR RPR Lab Routine Missed menses , unspecified gestational age Ordered: 02/03/2024 [facility] Comment on above: Ordered: 02/03/2024 Respiratory pathogen s DNA and RNA panel - Nasopharynx by SVETLANA with non-probe detection [facility] Rubella antibody, IgG Rubella an tibody, IgG Lab Routine Missed menses , unspecified gestational age Ordered: 02/03/2024 [facility] Comment on above: Ordered: 02/03/2024 Streptococcus agalac tiae [Presence] in Unspecified specimen by Organism specific culture [facility] Thyroperoxidase Ab [Units/volume] in Serum or Plasma [facility] Thyrotropin [Units/v olume] in Serum or Plasma [facility] Thyrotropin [Units/v olume] in Serum or Plasma TSH Lab Routine , unspecified gestational age Encounter for supervision of normal first in first trimester Ordered: 02/03/2024 [facility] Comment on above: Ordered: 02/03/2024 Thyroxine (T4) free index in Serum or Plasma by calculation [facility] Thyroxine measurement [facility] Triiodothyronine (T3 ) [Mass/volume] in Serum or Plasma [facility] Triiodothyronine res in uptake (T3RU) in Serum or Plasma [facility] Immunizations Immunization Date Immunization Notes Care Provider Arcadio galicia 04-09-2023 influenza virus vaccine, unspecified formulation [facility] 02-13-2023 tetanus toxoid, reduced diphtheria toxoid, and acellular pertussis vaccine, adsorbed RONDA Toure Work Phone: [facility] 01-10-2021 influenza, injectable, quadrivalent, preservative free DO Obdulia Oneil Work Phone: [facility] 02-15-2010 tetanus toxoid, reduced diphtheria toxoid, and acellular pertussis vaccine, adsorbed [facility] Work Phone: 12-13-2008 novel [id number], preservative-free, injectable [facility] 12-13-2008 influenza virus vaccine, unspecified formulation Oscar Nolan MD Work Phone: [facility] 07-21-2000 hepatitis B vaccine, pediatric or pediatric/adolescent dosage [facility] 07-21-2000 measles, mumps and rubella virus vaccine [facility] 1999 poliovirus vaccine, inactivated [facility] NEGATED: Highlighted row has not occurred!01-10-2021 tetanus toxoid, reduced diphtheria toxoid, and acellular pertussis vaccine, adsorbed DO Obdulia Oneil Work Phone: [facility] Payers Date Payer Category Payer Self-pay [id number] 2021 Medicaid (Managed Care) [employer] [id number] 1999 Unknown [id number] 2.16.840.1.922240.3.579.2. 647 1999 Unknown [id number] 2.16.840.1.095142.3.579.2. 593 1999 Unknown [id number] 2.16.840.1.822514.3.579.2. 593 1999 Unknown [id number] 2.16.840.1.935753.3.579.2. 593 1999 Unknown [id number] 2.16.840.1.684412.3.579.2. 593 1999 Unknown [id number] 2.16.840.1.460994.3.579.2. 593 1999 Unknown [id number] 2.16.840.1.089028.3.579.2. 1259 1999 Unknown [id number] 2.16.840.1.471150.3.579.2. 1259 1999 Unknown [id number] 2.16840.1.992770.3.579.2. 1259 1999 Unknown [id number] 2.16840.1.176708.3.579.2. 1259 1999 Unknown [id number] 2.16840.1.907565.3.579.2. 1259 1994 Medicaid HMO [employer] [id number] 1959 Private Health Insurance [id number] 1959 Unknown [id number] Unknown Matilda BC/KATHERINE [id number] Unknown [id number] 2.0.1.798161.3.579.2. 531 Unknown [id number] 2..1.004255.3.579.2. 531 Unknown [id number] 2.840.1.373963.3.579.2. 531 Unknown [id number] 2.840.1.568208.3.579.2. 531 Unknown [id number] 2.840.1.614478.3.579.2. 531 Unknown [id number] 2.840.1.833434.3.579.2. 531 Unknown [id number] 2.840.1.168569.3.579.2. 531 Unknown [id number] 2.16.840.1.963194.3.579.2. 531 Unknown [id number] 2.16.840.1.430301.3.579.2. 531 Unknown [id number] 2.16.840.1.789580.3.579.2. 531 Unknown [id number] 2.16.840.1.066319.3.579.2. 531 Unknown [id number] 2.16.840.1.621330.3.579.2. 531 Unknown [id number] 2.16.840.1.488215.3.579.2. 531 Unknown [id number] 2.16.840.1.822626.3.579.2. 531 Unknown [id number] 2.16.840.1.597960.3.579.2. 531 Unknown [id number] 2.16840.1.661666.3.579.2. 531 Unknown [id number] 2.16840.1.549676.3.579.2. 531 Social History Date Type Detail Facility Start: 10-18-2021 End: 03-17-2024 Tobacco smoking status NHIS Never smoked tobacco (finding) [facility] Start: 2000 Sex Assigned At Female [facility] Start: 07-28-2022 End: 03-17-2024 Tobacco use and exposure Smokeless tobacco non-user [facility] Start: 02-03-2024 End: 03-20-2024 Alcoholic beverage intake Ex-drinker (finding) [facility] Start: 03-28-2020 End: 02-12-2023 History of Social function [facility] Start: 03-28-2020 End: 02-12-2023 Tobacco use panel [facility] Start: 08-24-2022 Education 16 [facility] Start: 08-24-2022 Alcohol Comment none with preg sascha, Caffeine intake: none [facility] Start: 12-01-2023 [facility] Start: 1999 Sex assigned at Not on file [facility] Start: 04-29-2022 Gender identity Identifies as female gender (finding) [facility] Childcare Unknown [facility] Start: 09-20-2014 Sex Female (finding) [facility] NEGATED: Highlighted row [facility] Goals Date Patient Goal Desired Activity /State Personal health goal Functional Status Date Assessment Result Facility 02-13-2023 Functional status Patient Not at Baseline [facility] Work Phone: Mental Status Date Assessment Result Facility 02-13-2023 Cognitive function Cognitive Sta tus Patient Not at Baseline [facility] Work Phone: Clinical Notes 10-18-2021 to 03-09-2024 Ce Curry LPN - 03/09/2024 10:20 AM ESTDanay Velasquez MA - 02/03/2024 1:00 PM EST Note Date & Type Note Facility 03-09-2024 History of Present illness Narrative Reason for Appointment: Patient ID: Rosette Alba is a 23 y.o. female who presents for Routine Visit Patient presents today for Return OB appointment. MEDICATIONS Current Outpatient Medications Medication Instructions ferrous sulfate 325 mg, Oral, Daily with breakfast venlafaxine XR (Effexor XR) 75 MG 24 hr capsule TAKE 1 CAPSULE BY MOUTH ONCE DAILY WITH FOOD ALLERGIES No Known Allergies PROBLEMS Active Ambulatory Problems Diagnosis Date Noted Amenorrhea, secondary 06/25/2022 Amenorrhea 06/25/2022 Anxiety 06/25/2022 Calculus of gallbladder with acute on chronic cholecystitis without obstruction 06/25/2022 Gestational diabetes mellitus (GDM) in third trimester 06/25/2022 History of delivery, currently 06/25/2022 Mixed anxiety and depressive disorder 06/25/2022 Other specified related conditions, third trimester 06/25/2022 Polyhydramnios affecting in third trimester 06/25/2022 Right upper quadrant pain 06/25/2022 Resolved Ambulatory Problems Diagnosis Date Noted No Resolved Ambulatory Problems Past Medical History: Diagnosis Date Family history of cancer History of UTI Hx of thyroid disease (normal spontaneous vaginal delivery) Varicella zoster HISTORY PAST MEDICAL HISTORY SOCIAL HISTORY Past Medical History: Diagnosis Date Anxiety was using Lexapro weaned off with Family history of cancer History of UTI Hx of thyroid disease is not taking any medications. (normal spontaneous vaginal delivery) x2 Varicella zoster Social History Tobacco Use Smoking status: Never Smokeless tobacco: Never Vaping Use Vaping status: Never Used Substance Use Topics Alcohol use: Not Currently Comment: none with , Caffeine intake: none Drug use: Never FAMILY HISTORY Family History Problem Relation Name Age of Onset Diabetes Mother Diabetes Father Asthma Brother Allergies Brother seasonal Hypertension Maternal Grandmother Depression Maternal Grandmother Hypertension Maternal Grandfather Cancer Paternal Grandmother Cancer Paternal Grandfather Diabetes Paternal Grandfather Seizures Cousin SURGICAL HISTORY Past Surgical History: Procedure Laterality Date GALLBLADDER SURGERY 2022 INNER EAR SURGERY Bilateral IUD INSERTION mirena IUD REMOVAL 10/18/2019 OTHER SURGICAL HISTORY 03/27/2021 Nexplanon insertion VAGINAL DELIVERY x 5 REVIEW OF SYSTEMS Review of Systems: Review of Systems All other systems reviewed and are negative. OBJECTIVE Objective: Physical Exam Constitutional: Appearance: Normal appearance. She is well-developed. Cardiovascular: Rate and Rhythm: Normal rate and regular rhythm. Pulmonary: Effort: Pulmonary effort is normal. Breath sounds: Normal breath sounds. Abdominal: General: Bowel sounds are normal. There is no distension. Palpations: Abdomen is soft. Tenderness: There is no abdominal tenderness. There is no guarding or rebound. Musculoskeletal: General: No swelling. Normal range of motion. Right lower leg: No edema. Left lower leg: No edema. Neurological: Mental Status: She is alert and oriented to person, place, and time. Skin: General: Skin is warm and dry. Psychiatric: Mood and Affect: Mood normal. Behavior: Behavior normal. Vitals and nursing note reviewed. Exam conducted with a autoglazier present. Vitals: Estimated body mass index is 39.17 kg/m as calculated from the following: Height as of 07/28/22: 5' 3 . Weight as of this encounter: 221 lb 2.2 oz. BP: 116/60 Patient's last menstrual period was 11/21/2023. ASSESSMENT & PLAN ICD-10-CM 1. Second trimester Z34.92 POCT urinalysis dipstick manually resulted Alpha fetoprotein, maternal Alpha fetoprotein, maternal 2. 16 weeks gestation of Z3A.16 POCT urinalysis dipstick manually resulted Alpha fetoprotein, maternal Alpha fetoprotein, maternal New OB: Patient presents today for 1st time obstetrics appointment with provider. Patient is currently 16w1d . Patients history has been reviewed in great detail including any potential risks. Patient stated she currently has no complaints. Expectations throughout regarding labs, ultrasounds, and appointments have been discussed with the patient in detail. It was reiterated that the patient is to drink 6-8 glasses of water a day, eat 6 small meals a day, do not consume raw or undercooked meat, and stay away from [facility]. Patient has been consulted regarding any further do's and don'ts of . Patient voiced understanding and all questions and concerns were answered. Discussed vaginal progesterone with patient and that medication will be stopped at 36 weeks gestation, and Celestone will be given at 32 weeks. Patient given early 1 hour gtt and MSAFP. Vaginal suppositories sent to [employer]. PVU Orders Placed This Encounter Procedures US OB transvaginal Alpha fetoprotein, maternal Glucose tolerance, 1 hour POCT urinalysis dipstick manually resulted Follow Up: Patient is to return in 4 weeks for routine OB appointment. Documented by Ce Curry LPN on behalf of: Camacho Hernandez DO documented in this encounter [facility] 02-03-2024 History of Present illness Narrative Reason for Appointment: Patient ID: Rosette Alba is a 23 y.o. female who presents for No chief complaint on file. Patient presents today for a Nurse OB Intake appointment. Patient is 11w1d with a Estimated Date of Delivery: 08/23/24 OB History Para Term AB Living 7 6 6 6 SAB IAB Ectopic Multiple Live Births 6 # Outcome Date GA Lbr Lopez/2nd Weight Sex Type Anes PTL Lv 7 Current 6 02/13/23 35w4d 6 lb 7 oz M Vag-Spont FIDE 5 10/18/21 31w0d 3 lb 11 oz M Vag-Spont FIDE Comments: 30 day NICU stay Complications: Late care 4 2020 36w0d M Vag-Spont FIDE Comments: issues with baby's blood sugar after delivery per pt 3 2018 35w0d 5 lb 12 oz M Vag-Spont FIDE 2 2015 34w0d 4 lb 6 oz M Vag-Spont FIDE 1 2014 36w5d 6 lb 4 oz F Vag-Spont FIDE Obstetric Comments Last pap smear date 11/26/21 wnl Current Medications: has a current medication list which includes the following prescription(s): ferrous sulfate and venlafaxine xr. Medical History: Active Ambulatory Problems Diagnosis Date Noted Amenorrhea, secondary 06/25/2022 Amenorrhea 06/25/2022 Anxiety 06/25/2022 Calculus of gallbladder with acute on chronic cholecystitis without obstruction 06/25/2022 Gestational diabetes mellitus (GDM) in third trimester 06/25/2022 History of delivery, currently 06/25/2022 Mixed anxiety and depressive disorder 06/25/2022 Other specified related conditions, third trimester 06/25/2022 Polyhydramnios affecting in third trimester 06/25/2022 Right upper quadrant pain 06/25/2022 Resolved Ambulatory Problems Diagnosis Date Noted No Resolved Ambulatory Problems Past Medical History: Diagnosis Date Family history of cancer History of UTI Hx of thyroid disease (normal spontaneous vaginal delivery) Varicella zoster Family History Problem Relation Name Age of Onset Diabetes Mother Diabetes Father Asthma Brother Allergies Brother seasonal Hypertension Maternal Grandmother Depression Maternal Grandmother Hypertension Maternal Grandfather Cancer Paternal Grandmother Cancer Paternal Grandfather Diabetes Paternal Grandfather Seizures Cousin Social History Tobacco Use Smoking status: Never Smokeless tobacco: Never Vaping Use Vaping status: Never Used Substance Use Topics Alcohol use: Not Currently Comment: none with , Caffeine intake: none Drug use: Never Past Surgical History: Procedure Laterality Date GALLBLADDER SURGERY 2022 INNER EAR SURGERY Bilateral IUD INSERTION mirena IUD REMOVAL 10/18/2019 OTHER SURGICAL HISTORY 03/27/2021 Nexplanon insertion VAGINAL DELIVERY x 5 No Known Allergies Vitals: Estimated body mass index is 38.97 kg/m as calculated from the following: Height as of 07/28/22: 5' 3 . Weight as of 05/27/23: 220 lb. BP: Patient's last menstrual period was 11/21/2023. Assessment/Plan Diagnoses and all orders for this visit: Missed menses - Type and screen; Future - ABO/Rh; Future - CBC and differential - Hemoglobin A1c - RPR - Rubella antibody, IgG - Hepatitis B surface antigen - Hepatitis C antibody - HIV-1 and HIV-2 antibodies - Urine culture - US OB transvaginal; Future - POCT , urine manually resulted - POCT urinalysis dipstick manually resulted , unspecified gestational age - Type and screen; Future - ABO/Rh; Future - CBC and differential - Hemoglobin A1c - RPR - Rubella antibody, IgG - Hepatitis B surface antigen - Hepatitis C antibody - HIV-1 and HIV-2 antibodies - Rapid drug screen, urine; Future Encounter for supervision of normal first in first trimester - Rapid drug screen, urine; Future Nurse Note: OB Intake: Patient presents today for first OB visit. Patients history has been reviewed in great detail including any potential risks. Patient signed consent forms and patient desires testing in both trimesters. Patient currently has no complaints and has been advised to drink 6-8 glasses of water a day, eat no raw or undercooked meat, and stay away from [facility]. Patient has also been advised to not change litter boxes and eat 6 small meals a day. Patient has been consulted regarding the do's and don'ts of . Patient was given labs and all questions and concerns were answered. Follow Up: Patient is to return in 4 weeks for routine OB appointment. Follow Up: Patient is to have labs drawn at directed and return to office for initial OB appointment with provider. Patient may call office as needed with any concerns or questions. Nurse Visit Completed by: Danay Velasquez MA documented in this encounter [facility] 02-13-2023 Procedure note [facility] 10-18-2021 History and physical note Note Date/Time October 18, 2021 1:40am [facility] [address] [place] [address] [employer]PA[employer]ER History & Physical Signed Patient: Rosette Alba MR#: [id number] : 2000 Acct:[id number] Age/Sex: 21 / F Adm Date: 2 Loc: Room: 8Q5519-6 Type: ADM IN Attending Dr: Jennie Smith MD Copies to: Jennie Smith MD-NOMS Obdulia Oneil DO~ Date of Service: 10/18/2021 Review of Systems Review of Systems All other systems reviewed & are negative unless noted below or in HPI OB [facility] Medical History (Updated 10/18/21 @ 01:30 by Jennie Smith MD) Anxiety Depression Thyroid disease No meds at present time. UTI (urinary tract infection) Surgical History (Updated 01/08/21 @ 21:48 by Marie Wynn RN) History of placement of ear tubes [employer] WHE[employer] REPA[employer]ER Hx : 5 : 4 Livin EDC [...] % (Auto) 73.3, Lymph % (Auto) 17.0, [place] % (Auto) 8.1, Eos % (Auto) 1.3, Baso % (Auto) 0.3, Neut # (Auto) 7.4, Lymph # (Auto) 1.7, [place] # (Auto) 0.8, Eos # (Auto) 0.1, Baso # (Auto) 0.0, Nucleated RBC % (auto) 0.1 10/18/21 00:27: Urine Color Yellow, Urine Appearance Cloudy A, Urine pH 6.5, Ur Specific [place] 1.020, Urine Protein Trace H, Urine Glucose [...] Acute Plan Anticipate Documented By: TELMA Velez 10/18/21 28 Signed By: <Electronically signed by TELMA Smith> 10/18/21 0141 [facility] Work Phone: [phone]) 282-150309-03-2022 [facility] Diagnosis Onset Date Resolution Status 33 weeks gestation of acute [facility] Work Phone: Evaluation noteNo assessment information available [facility] Work Phone: Evaluation note* Diagnosis Onset Date Resolution Status 35 weeks gestation of [facility] Work Phone: Evaluation note* Diagnosis Onset Date Resolution Status Iron deficiency anemia [facility] Work Phone: Evaluation note* Diagnosis Missed menses , unspecified gestational age Encounter for supervision of normal first in first trimester documented in this encounter [facility] Healthcare[facility]* Diagnosis Second trimester state, incidental 16 weeks gestation of History of delivery, currently with history of pre-term labor Diabetes mellitus screening Screening for diabetes mellitus History of gestational diabetes Personal history of other genital system and obstetric disorders documented in this encounter [facility] HealthcareHospital Discharge instructions Additional Instructions You have a respiratory panel is pending you will be called with any positive results Push fluids Humidifier may be beneficial Tylenol only for your discomfort Follow-up with your PCP and your [employer] REPAIRER call tomorrow for appointment Salt water gargles to soothe your throat Handwashing Rest Return here if any problems persist or worsen including abdominal pain, vaginal bleeding, increased pain, dyspnea or any other [facility] [place] Work Phone: InstructionsNot on filedocumented in this encounter [facility] Summary Purpose Family History Relationship Condition Age at Onset Recorded Date/T collins Not Specified Malignant neoplasm of ovary Unknown father Diabetes mellitus Unknown Hypertension Unknown Relationship Condition Age at Onset Recorded Date/T collins mother Malignant neoplasm of ovary Unknown father Diabetes mellitus Unknown Hypertension Unknown Advance Directives Advance Directive Response Recorded Date/ Time Advance [...] section and content) DATE CREATED AUTHOR 10/16/2018 [facility] DATE CREATED AUTHOR AUTHOR'S ORGANIZ ATION 07/24/2022 [facility] DATE CREATED AUTHOR AUTHOR'S ORGANIZ ATION 12/17/2023 [facility] DATE CREATED AUTHOR AUTHOR'S ORGANIZ ATION 03/11/2024 [facility] EPIC DATE CREATED AUTHOR AUTHOR'S ORGANIZ ATION 03/15/2024 [facility] Care Teams (unrecognized sec tion and content) Team Status: Inactive Member Role Status Allison Oneil DO Primary Care Provider Active Jennie Smith MD Admit Provider, Attending Provider Active Team Status: Inactive Member Role Status Allison Oneil DO Primary Care Provider Active Radha Molina DO Attending Provider Active Team Status: Active Member Role Status Dates Obdulia Oneil DO Primary Care Provider Active Team Status: Inactive Member Role Status Dates Nataly Toure ACCOUNTS RECEIVABLE ASSISTANT-C Attending Provider Active Team Status: Active Member Role Status Dates Nataly Toure ACCOUNTS RECEIVABLE ASSISTANT-C Primary Care Provider Active Team Status: Inactive Member Role Status Dates Nataly Toure ACCOUNTS RECEIVABLE ASSISTANT-C Primary Care Provider, Attending Provider Active Team Status: Inactive Member Role Status Dates Nataly Toure ACCOUNTS RECEIVABLE ASSISTANT-C Primary Care Provider Active Marcello Hudson DO Attending Provider Active Team Status: Inactive Member Role Status Dates Nataly Toure ACCOUNTS RECEIVABLE ASSISTANT-C Primary Care Provider Active Mary Kay Cantu DO Attending Provider Active Team Status: Inactive Member Role Status Dates Nataly Toure ACCOUNTS RECEIVABLE ASSISTANT-C Primary Care Provider Active Jennie Smith MD Attending Provider Active Team Status: Inactive Member Role Status Dates Nataly E Spasic , ACCOUNTS RECEIVABLE ASSISTANT-C Primary Care Provider Active Staci Ortiz , SLATE CUTTER Emergency Provider Active Team Status: Inactive Member Role Status Dates Nataly Toure , ACCOUNTS RECEIVABLE ASSISTANT-C Attending Provider Active Services [facility] Primary Care Provider Ac tive Team Status: Inactive Member Role Status Dates Radha Molina DO Attending Provider Active Team Status: Active Member Role Status Dates PHYSICIAN NO FAMILY Primary Care Provider Active Team Status: Inactive Member Role Status Dates Radha Molina DO Attending Provider Active PHYSICIAN NO FAMILY Primary Care Provider Active Team Status: Inactive Member Role Status Dates Nataly Toure , ACCOUNTS RECEIVABLE ASSISTANT-C Primary Care Provider Active Radha Molina DO Attending Provider Active Team Status: Inactive Member Role Status Dates Nataly Toure , ACCOUNTS RECEIVABLE ASSISTANT-C Primary Care Provider Active Ede Way MD Admit Provider, Attending Provider A ctive [...] Member Role Status Dates Nataly Toure , ACCOUNTS RECEIVABLE ASSISTANT-C Primary Care Provider Active Start: January 21, 2023 End: January 21, 2023 Radha Molina DO Attending Provider Active S tart: January 21, 2023 End: January 21, 2023 Team Status: Inactive Member Role Status Dates Nataly Toure , ACCOUNTS RECEIVABLE ASSISTANT-C Primary Care Provider Active Start: January 22, 2023 End: January 22, 2023 Radha Molina DO Attending Provider Active S tart: January 22, 2023 End: January 22, 2023 Team Status: Inactive Member Role Status Dates Nataly Toure , ACCOUNTS RECEIVABLE ASSISTANT-C Primary Care Provider Active Start: January 30, 2023 End: January 31, 2023 Mary Kay Cantu DO Attending Provider Active Start: January 30, 2023 End: January 31, 2023 Team Status: Inactive Member Role Status Dates Nataly Toure , ACCOUNTS RECEIVABLE ASSISTANT-C Primary Care Provider Active Start: February 01, 2023 End: February 01, 2023 Radha Molina DO Attending Provider Active S tart: February 01, 2023 End: February 01, 2023 Team Status: Inactive Member Role Status Dates Nataly Toure , ACCOUNTS RECEIVABLE ASSISTANT-C Primary Care Provider Active Start: February 13, 2023 End: February 13, [address] MD Admit Provider, [facility] Provider Active Start: February 13, 2023 End: February 13, 2023 Team Status: Inactive Member Role Status Dates Nataly Toure , ACCOUNTS RECEIVABLE ASSISTANT-C Attending Provider Active Start: March 04, 2023 End: March 04, 2023 Team Status: Active Member Role Status Dates Services [facility] Care Provider Ac tive Team Status: Inactive Member Role Status Dates Nataly Toure , ACCOUNTS RECEIVABLE ASSISTANT-C Attending Provider Active Start: March 17, 2023 End: March 17, 2023 [facility] Care Provider Ac tive Start: March 17, 2023 End: March 17, 2023 Team Status: Inactive Member Role Status Dates Nataly Toure , ACCOUNTS RECEIVABLE ASSISTANT-C Attending Provider Active Start: August 03, 2023 End: August 03, 2023 Team Status: Inactive Member Role Status Dates Nataly Toure , ACCOUNTS RECEIVABLE ASSISTANT-C Primary Care Provider Active Start: August 20, 2023 End: August 21, 2023 Carmelo Vinson DO Emergency Provider Active St art: August 20, 2023 End: August 21, 2023 Team Status: Inactive Member Role Status Dates Nataly Toure , ACCOUNTS RECEIVABLE ASSISTANT-C Primary Care Provider Active Start: September 26, 2023 End: September 27, 2023 Devon Leon PA-C Emergency Provider Active Start: September 26, 2023 End: September 27, 2023 Team Status: Inactive Member Role Status Dates Nataly Toure , ACCOUNTS RECEIVABLE ASSISTANT-C Primary Care Provi emmanuel, Attending Provider Active Start: September 30, 2023 End: September 30, 2023 Team Status: Inactive Member Role Status Dates Nataly Toure , ACCOUNTS RECEIVABLE ASSISTANT-C Primary Care Provider Active Start: October 04, 2023 End: October 05, 2023 Carmelo M Tupa , DO Emergency Provider Active St art: October 04, 2023 End: October 05, 2023 Team Status: Inactive Member Role Status Dates Nataly Toure , ACCOUNTS RECEIVABLE ASSISTANT-C Primary Care Provi emmanuel, Attending Provider Active Start: October 07, 2023 End: October 07, 2023 Team Status: Inactive Member Role Status Dates Nataly Toure , ACCOUNTS RECEIVABLE ASSISTANT-C Primary Care Provi emmanuel, Referring Provider Active Start: October 20, 2023 End: October 20, 2023 Melania Arceo APRN Attending Provider Active Start: October End: October 20, 2023 Team Status: Active Member Role Status Dates Nataly Toure , ACCOUNTS RECEIVABLE ASSISTANT-C Primary Care Provi emmanuel, Referring Provider Active Start: October 20, 2023 Melania Arceo APRN Attending Provider Active Start: October Film Developer Relationship Specialty Start Date End Date Unallocated, Jonny Chapa MD [address] [place] [address] [place] [address] PCP - General 06/29/22 Film Developer Relationship Specialty Start Date End Date Unallocated, Jonny Chapa MD [address] [place], [place] [address] [address] PCP - General 06/29/22 Film Developer Relationship Specialty Start Date End Date Unallocated, Jonny Chapa MD [facility] [place] [address] PCP - General 06/29/22 Film Developer Relationship Specialty Start Date End Date Unallocated, Jonny Chapa MD [address] [place], [place] [address] [address] PCP - General 06/29/22 Film Developer Relationship Specialty Start Date End Date Martin Chapman MD [address] [place] [id number] PCP - General Family Medicine 02/24/18 Goals (unrecognized section and content) Goals may [...] sectionGoals may be documented in an alternate sectionNot on filedocumented as of this encounter Reason for Visit (unrecogniz ed section and content) Reason Comments Routine Visit FOR RECORDS PERTAINING TO PATIENTS WHO ARE [...] BE BASED ON THE PRIMARY CLINICAL RECORDS. [facility] [employer] [facility]. provides no warranty or guarantee of the accuracy or completeness of information in this document.
--- NOTE | 2024-03-20 10:37 | US_ITS ---
[facility] [place] [id number] Patient Name: ROSETTE ALBA MRN: [id number] date: 2000 Sex: F Assigned Patient Location: ER Current Patient Location: ER Accession/Order Number: [id number] Exam Date: 03/20/2024 10:55 Report Date: 03/20/2024 11:30 At the request of: MARYBETH DURHAM Procedure: US OB limited EXAMINATION: US OB limited HISTORY: Vaginal bleeding COMPARISON: Ultrasound OB cervix 03/06/2024 FINDINGS: PLACENTA: Posterior without subchorionic hematoma or previa. CERVIX LENGTH: 4.4 cm; closed. HEART RATE: 139 bpm OTHER: None. US/US OB limited IMPRESSION: 1. Single live intrauterine . 2. No acute or suspicious findings to account for patient's symptoms. Electronically authenticated by: OBDULIA EMERY Date: 03/20/2024 11:30
--- NOTE | 2024-03-20 10:38 | ED.PREGNANC1 ---
HPI - General Chief complaint: Urogenital-Female Stated complaint: SPOTTING- 17 WKS , PT HAS PLACENTA PREVIA Time Seen by Provider: 03/20/24 10:27 Source: patient Mode of arrival: walk-in History of Present Illness HPI Narrative: 23-year-old female presents for vaginal spotting. She is approximately 17 weeks and this started yesterday. She was diagnosed with placenta previa few weeks ago. She complains of some mild abdominal pain and there has been no heavy bleeding. No trauma. Related Data Allergies Allergy/AdvReac Type Severity Reaction Status Date / Time No Known Drug Allergies Allergy Verified 03/20/24 10:26 Review of Systems ROS Narrative A ten point review of systems is negative except as noted above. PFSH PFSH Social History Little interest or pleasure in doing things: not at all Feeling down, depressed, or hopeless: not at all Exam Narrative Exam Narrative: Nurses note and vital signs reviewed and patient is not hypoxic. General: The patient appears well and in no apparent distress. Patient is resting comfortably on cart. Skin: Warm, dry, no pallor noted. There is no rash noted. Head: Normocephalic, atraumatic Eye: Normal conjunctiva, no drainage Ears, Nose, Mouth, and Throat: oral mucosa is moist. Nares patent. Cardiovascular: Regular Rate and Rhythm Respiratory: Patient is in no distress, no accessory muscle use, lungs are clear to auscultation, no wheezing, rales or rhonchi Back: non-tender GI: Soft and nontender Musculoskeletal: The patient has no evidence of calf tenderness, no pitting edema, symmetrical pulses noted bilaterally Neurological: A&O, normal speech Psychiatric: Cooperative Constitutional Vital Signs, click to edit/add: Last Vital Signs Temp 98.1 F 03/20/24 10:56 Pulse 112 H 03/20/24 10:26 Resp 20 03/20/24 10:26 BP 113/77 03/20/24 10:26 Pulse Ox 98 03/20/24 10:26 O2 Del Method Room Air 03/20/24 10:26 Course Vital Signs Vital signs: Vital Signs Pulse Rate 112 H 03/20/24 10:26 Respiratory Rate 20 03/20/24 10:26 Blood Pressure 113/77 03/20/24 10:26 Pulse Oximetry 98 03/20/24 10:26 Oxygen Delivery Method Room Air 03/20/24 10:26 Temperature 98.1 F 03/20/24 10:56 Pulse Rate 112 H 03/20/24 10:26 Respiratory Rate 20 03/20/24 10:26 Blood Pressure 113/77 03/20/24 10:26 Pulse Oximetry 98 03/20/24 10:26 Oxygen Delivery Method Room Air 03/20/24 10:26 MDM - OB/Uterine Contractions MDM Narrative Medical decision making narrative: Ultrasound is appropriate. Normal IUP without placenta previa. She is discharged home and will follow-up with her physician. Treatment diagnosis and follow-up were discussed with the patient. Differential Diagnosis Differential diagnosis: Likely other (Miscarriage, threatened miscarriage, placenta previa) Imaging Data Pelvic ultrasound: Radiologist's impression: ITS Impressions Obstetrics Ultrasound 03/20/24 10:37 IMPRESSION: 1. Single live intrauterine . 2. No acute or suspicious findings to account for patient's symptoms. Electronically authenticated by: OBDULIA EMERY Date: 03/20/2024 11:30 Discharge Plan Discharge Chief Complaint: Urogenital-Female Clinical Impression: Threatened miscarriage Patient Disposition: Home, Self-Care Time of Disposition Decision: 11:39 Condition: Good Mode of Transportation: Private Vehicle Print Language: Tamazight Instructions: Threatened Miscarriage (ED) Referrals: OBDULIA MICHELLE [Primary Care Provider] - 1 week
[2024-03-20 10:56] VITALS: TEMP 36.7
== END 2024-03-20 11:49 | disposition home or self-care (01) ==
PROVIDERS: Emergency Provider Emergency Medicine; PCP Family Medicine
DX: O20.0 Threatened abortion (principal); Z3A.17 17 weeks gestation of pregnancy
CPT/HCPCS: 76815; 99284

== ENCOUNTER 2024-04-06 20:06 | Outpatient (REF) | payer OTHER, SELFPAY ==
--- OUTSIDE RECORDS SUMMARY | 2024-04-06 20:11 | XMS_ITS | CCD ---
Author Organization [facility] Care Team Providers Care Crnp Name Role Phone SOFÍA SHARLA Admitting Unavailable EBWANDA SHARLA Attending Unavailable OBDULIA ONEIL Referring Unavailable OBDULIA ONEIL Primary Care Unavailable DC Procedure Practitioner Unavailab SHARLA Singh Surgeon Unavailable DC Procedure Practitioner Unavailab AREN Ferguson Surgeon Unavailable DO Obdulia Oneil Primary Care Provider [phone] DO Radha Molina Attending Provider MD Jennie Smith Admit Provider MD Jennie Smith Attending Provider [phone] Spasic, RESHIPPING CLERK-C Nataly Torres Attending Provider [phone] Spasic, RESHIPPING CLERK-C Nataly Torres Primary Care Provider [phone] DO Marcello Hudson Attending Provider CORRINA DHALIWAL [...] MARY ., DR MOMIN Consulting Unavailable REQUEST, NONE LISTED Primary Care Unavaila ble Spasic, RESHIPPING CLERK-C Nataly E Primary Care Provider [phone] DO Mary Kay Cantu Attending Provider MD Jennie Smith Attending Provider CADE Ortiz Emergency Provider Spasic, RESHIPPING CLERK-C Nataly E Attending Provider [facility] Primary Care Prov ider DO Radha Molina Attending Provider Spasic, RESHIPPING CLERK-C Nataly E Primary Care Provider DO Mary Kay Cantu Attending Provider MD Jennie Smith Attending Provider CADE Ortiz Emergency Provider Spasic, RESHIPPING CLERK-C Nataly E Attending Provider [facility] Primary Care Prov ider DO Radha Molina Attending Provider NO FAMILY, PHYSICIAN Primary Care Provider Unava ilable MD Ede Way Admit Provider MD Ede Way Attending Provider [phone] Spasic, RESHIPPING CLERK-C Nataly E Primary Care Provider DO Mary Kay Cantu Attending Provider Spasic, RESHIPPING CLERK-C Nataly E Attending Provider DO Radha Molina Attending Provider [facility] Primary Care Prov ider Spasic, RESHIPPING CLERK-C Nataly E Attending Provider Spasic, RESHIPPING CLERK-C Nataly E Primary Care Provider DO Carmelo Vinson Emergency Provider [phone] RANDALL Leon Emergency Provider [phone] Spasic, RESHIPPING CLERK-C Nataly E Referring Provider MarielosADELITAN Racheal Attending Provider Spasic, Nataly E Primary Care Unavailable Rinkes, Radha Admitting Unavailable Rinlana Radha Attending Unavailable RinRadha schwartz Attending Unavailable RinkesRadha Admitting Unavailable NO FAMILY, PHYSICIAN Primary Care [...] Leon Attending Unavailable Devon Leon Admitting Unavailable SpasiNataly gallego Attending Unavailable Spasianirudh, Nataly E Admitting Unavailable Spasic, Nataly E Attending Unavailable Spasic, Nataly E Admitting Unavailable [facility] Services Primary Care U navailable Andrez Tourea E Consulting Unavailable Jannet - FHSTino Attending Unava ilable Jannet - FHSTino Admitting Unava ilable Spasic, Nataly E Primary Care Unavailable Ede Way Admitting Unavailable Ede Way Attending Unavailable Spasic, Nataly E Primary Care Unavailable NataprMary Kay hernadez Admitting Unavailable NatIndio marksa Attending Unavailable Spasic, Nataly E Primary Care Unavailable Rinlana, Radha Admitting Unavailable Rinlana, Radha Attending Unavailable Unallocated , Noms Provider Primary Care Provi emmanuel CAMACHO HERNANDEZ Attending Unavailable RADHA MOLINA Attending Unavailable RADHA MOLINA Referring Unavailable EDE WAY Referring Unavailable RADHA MOLINA Attending Unavailable RADHA MOLINA Referring Unavailable Martin Chapman MD Primary Care Provider [phone] Allergies Allergy Classification Reported Allergen(s) Allergy Type Date of Onset Reaction(s) Facility (1 source) 66559,00 Drug allergy (disorder) 07-01-2012 [facility] Repository Medications Current Medications Medication Drug [...] 12:00am Start: 03-18-2023 take 1 capsule by [facility] once daily at mealtime venlafaxine XR (Effexor XR) 75 MG 24 hr capsule TAKE 1 CAPSULE BY MOUTH ONCE DAILY WITH FOOD 03/18/2023 Active Start: 06-23-2022 End: 11-19-2022 take 37.5 mg by mouth once daily at bedtime Venlafaxine Discontinued 37.5 MG PO Daily at bedtime June 23, 2022 12:00am November 19, 2022 12:21pm take 1 capsule by [facility] every twenty-four hours in the morning venlafaxine [...] by mouth every four hours Hydrocodone-Acetam inophen (Jasper) 5-325 mg tablet Discontinued 2 TAB PO [...] 20, 2017 1:01pm 168 hr ethinyl estradiol 0.23172 mg/hr / norelgestromin 0.42778 mg/hr transdermal system (20 sources) Progestin, Estrogen [...] 20, 2022 12:00am February 13, 2023 7:43pm Prescott-3 Fatty Acids-Fish Oil (20 sources) Start: 06-23-2022 End: 11-19-2022 take 1 capsule by mouth once daily Prescott-3 Fatty Acids-Fish Oil Discontinued 1 CAP PO Daily June 22, 2022 11:00pm November 19, 2022 11:22am Start: 06-23-2022 End: 11-19-2022 take 1 capsule by mouth once daily Prescott-3 Fatty Acids-Fish Oil Discontinued 1 CAP PO Daily June 23, 2022 12:00am November 19, 2022 12:22pm Start: 06-23-2022 take 1 capsule by [facility] once daily Prescott-3 Fatty Acids-Fish Oil Active 1 CAP PO [...] 07, 2017 12:00am November 12, 2017 12:01am Kxtennwr-Vft-Gg-Fa () 1 mg Tablet (20 sources) Start: 11-19-2022 End: 02-13-2023 take 1 tablet by mouth once daily Btrbdvtv-Rmf-Rh-Fa () 1 mg Tablet Discontinued 1 TAB PO Daily November 19, 2022 12:00am February 13, 2023 7:43pm Start: 11-19-2022 End: 02-13-2023 take 1 tablet by mouth once daily Gsfjuvmz-Qlf-Ah-Fa () 1 mg Tablet Discontinued 1 TAB PO Daily November 18, 2022 11:00pm February 13, 2023 6:43pm Start: 11-19-2022 take 1 tablet by long th once daily Fhzmqtdh-Gcr-Lt-Fa () 1 mg Tablet Active 1 TAB PO Daily November 18, 2022 11:00pm Start: 11-19-2022 take 1 tablet by long th once daily Mztgkwhp-Qop-Gm-Fa () 1 mg Tablet Active 1 TAB [...] Test Name Value Interpretation Reference Range Facility ED Note - Physicianon 2024 ED Note - Physician [id number]#1.00OTGTI [facility] Rad - Other Radiology Report on 03-20-2024 Rad - Other Radiology Report [id number]#1.00OTGTI [facility] Rad - Other Radiology Report on 03-14-2024 Rad - Other Radiology Report [id number]#1.00OTGTIF F [facility] US OB CERVICAL LENGTHon 02-16 [place] [address] Ultrasound Report Signed Patient: ROSETTE ALBA MR#: [id number] : 2000 Acct:[id number] Age/Sex: 23 / F ADM Date: 03/14/24 Loc: US Attending Dr: Camacho Hernandez D.O. Ordering Physician: Camacho Hernandez D.O. 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 Ordering Physician: Camacho Hernandez D.O. 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: [facility] Radiology Study observation (narrative) [facility] US OB CERVICAL LENGTHOrdered By: Radiologist Radiology on 03-14-2024 [facility] Work Phone: Urinalysis macro (dipstick) panel (U)on 03-09-2024 Bilirubin, UA Negative Negative - 4(70) +++ mg/dL [facility] Blood, UA Negative Negative - 50 Isaac/mcL [facility] Clarity, UA Clear [facility] Color, UA Yellow [facility] Glucose, UA Negative Negative - 2000(110) ++++ mg/dL [facility] Interpretation and review of laboratory results Normal [facility] Ketones, UA Negative Negative - 160(16) ++++ mg/dL [facility] Leukocytes, UA Negative Negative - 500+++ Shreya/mcL [facility] Nitrite, UA Negative Negative - Positive [facility] pH, UA 7.5 5 - 9 [facility] Protein, UA Negative Negative - 2000(20) ++++ mg/dL [facility] Spec Grav, UA 1.02 1 - 1.03 [facility] Urobilinogen, UA 1.0 0.2 - 12 mg/dL [facility] Free Cell DNAon 2024 [facility] BOX TESTon 02-25-2024 BOX TEST SENT OUT [facility] BOX1 ANTHONY [facility] BOX2 02/25/2024 [facility] BOX [facility] HCG ( test) Ql (U)o n 02-03-2024 Interpretation and review of laboratory results Abnormal [facility] Preg Test, Ur Positive Negative [facility] Rad - Ultrasound Reporton Rad - Ultrasound Report [id number]#1.00OTGTIF F [facility] Urinalysis macro (dipstick) panel (U)on 02-03-2024 Bilirubin, UA Negative Negative - 4(70) +++ mg/dL [facility] Blood, UA Negative Negative - 50 Isaac/mcL [facility] Clarity, UA Clear [facility] Color, UA Yellow [facility] Glucose, UA Negative Negative - 2000(110) ++++ mg/dL [facility] Interpretation and review of laboratory results Abnormal [facility] Ketones, UA Negative Negative - 160(16) ++++ mg/dL [facility] Leukocytes, UA Negative Negative - 500+++ Shreya/mcL [facility] Nitrite, UA Negative Negative - Positive [facility] pH, UA 5.5 5 - 9 [facility] Protein, UA Positive Negative - 2000(20) ++++ mg/dL [facility] Comment on above: 100 Spec Grav, UA 1.03 1 - 1.03 [facility] Urobilinogen, UA 0.2 0.2 - 12 mg/dL [facility] Rad - Other Radiology Report on 01-07-2024 Rad - Other Radiology Report [id number]#1.00OTGTIFF [facility] Outside Recordson 12-14-2023 Outside Records [id number]#1.00OTGTIF F [facility] Outside Records [id number]#1.00OTGTIF F [facility] US liver 10-07-2023 US liver [facility] Main [address] [address] Ultrasound Report Signed Patient: Rosette Alba MR#: [id number] : 2000 Acct:[id number] Age/Sex: 23 / F ADM Date: 10/07/23 Loc: UL Room: Type: [facility] CLI Attending Dr: Nataly MISTRYC Ordering Provider: RONDA Reyes Date of Service: [...] Kirkland Jr., D.O.10/07/2023 11:25 AM Dictation Location: [place] [address] Tech: [facility] Transcribed By: ANDREY 10/07/23 1125 Dictated By: Richard Kirkland Jr, DO 10/07/23 1123 Signed By: 10/07/23 1125 Normal [facility] US thyroidon 10-07-2023 US thyroid [facility] Main [address] [address] Ultrasound Report Signed Patient: Rosette Alba MR#: [id number] : 2000 Acct:[id number] Age/Sex: 23 / F ADM Date: 10/07/23 Loc: UL Room: Type: [facility] CLI Attending Dr: Nataly Toure RESHIPPING CLERKEmmaC Ordering Provider: RONDA Reyes Date of Service: [...] Kirkland Jr., D.O.10/07/2023 11:26 AM Dictation Location: [place] [address] Tech: Marie Max Transcribed By: ANDREY 10/07/23 1126 Dictated By: Richard Kirkland Jr, DO 10/07/23 1125 Signed By: 10/07/23 1126 Normal [facility] XR KUBon 10-07-2023 XR KUB [facility] [place] [address] XRay Report Signed Patient: Rosette Alba MR#: [id number] : 2000 Acct:[id number] Age/Sex: 23 / F ADM Date: 10/07/23 Loc: Room: Type: [facility] Attending Dr: Nataly BOND Copies to: RONDA [...] Kirkland Jr., D.O.10/07/2023 8:50 AM Dictation Location: RADIO-PC-08 Transcribed By: ANDREY 10/07/23 0850 Dictated By: Richard Kirkland Jr, DO 10/07/23 0849 Signed By: 10/07/23 0850 Normal [facility] Bacteria [Presence] in Urine by AutomatedOrdered By: Carmelo Vinson on 10-04-2023 Bacteria Auto Ql (U) None seen [HPF] None Seen [facility] Bilirubin Test strip Ql (U)O rdered By: Carmelo Vinson on 10-04-2023 Bilirubin Ql (U) Negative Negative [facility] Color of Urine by AutoOrdere d By: Carmelo Vinson on 10-04-2023 Color (U) Yellow Normal Yellow [facility] Comment on above: Order Comment: Name Collection Type:: Clean-Voided Midstream Performed By: #### A DDONUAPLUS, UHCG #### [place] [id number] [place] Dipstick and Microscopicon 0 10-04-2023 Bacteria,Urine None Seen Normal None Seen [facility] Comment on above: Order Comment: Name Collection Type:: Clean-Voided Midstream Performed By: #### A DDONUAPLUS, UHCG #### [facility] [address] [place] [id number] [place] Bilirubin,Urine Negative Normal Negative [facility] Comment on above: Order Comment: Name Collection Type:: Clean-Voided Midstream Performed By: #### A DDONUAPLUS, UHCG #### [facility] [address] [place] [address] [place] Glucose Ql (U) Normal Normal Normal [facility] Comment on above: Order Comment: Name Collection Type:: Clean-Voided Midstream Performed By: #### A DDONUAPLUS, UHCG #### [facility] [address] [place] [address] [place] Hyaline Casts,Urine 0-8 Normal 0-8 [facility] Comment on above: Order Comment: Name Collection Type:: Clean-Voided Midstream Performed By: #### A DDONUAPLUS, UHCG #### [facility] [address] [place] [id number] [place] Mucus,Urine 4+ Critically abnormal [facility] Comment on above: Order Comment: Name Collection Type:: Clean-Voided Midstream Performed By: #### A DDONUAPLUS, UHCG #### [place] [address] [place] Nitrite,Urine Negative Normal Negative [facility] Comment on above: Order Comment: Name Collection Type:: Clean-Voided Midstream Performed By: #### A DDONUAPLUS, UHCG #### [place] [address] [place] Occult Blood,Urine Negative Normal Negative [facility] Comment on above: Order Comment: Name Collection Type:: Clean-Voided Midstream Performed By: #### A DDONUAPLUS, UHCG #### [place] [address] [place] RBC,Urine 1-2 Normal 0-4 [facility] Comment on above: Order Comment: Name Collection Type:: Clean-Voided Midstream Performed By: #### A DDONUAPLUS, UHCG #### [place] [address] [place] Specificy [place],Urine 1.039 High 1.001-1.03 0 [facility] Comment on above: Order Comment: Name Collection Type:: Clean-Voided Midstream Performed By: #### A DDONUAPLUS, UHCG #### [place] [address] [place] Squamous Epithelial Cell,Urine 5-9 High 0-2 [facility] Comment on above: Order Comment: Name Collection Type:: Clean-Voided Midstream Performed By: #### A DDONUAPLUS, UHCG #### [place] [address] [place] Urobilinogen,Urine 2 mg/dL High Normal [facility] Comment on above: Order Comment: Name Collection Type:: Clean-Voided Midstream Performed By: #### A DDONUAPLUS, UHCG #### [place] [address] [place] WBC,Urine 3-4 Normal 0-4 [facility] Comment on above: Order Comment: Name Collection Type:: Clean-Voided Midstream Performed By: #### [facility] #### [facility] [address] Epithelial cells.squamous [# /area] in Urine sediment by Automated countOrdered By: Carmelo Vinson on 10-04-2023 Epithelial cells.squamous Auto (Urine sed) [#/Area] 5-9 [HPF] High 0-2 [facility] Erythrocytes [#/area] in Uri ne sediment by Automated countOrdered By: Carmelo Vinson on 10-04-2023 RBC Auto (Urine sed) [#/Area] 1-2 [HPF] 0-4 [facility] Glucose [Mass/volume] in Uri ne by Test stripOrdered By: Carmelo Vinson on 10-04-2023 Glucose Test strip (U) [Mass/Vol] Normal mg/dL Normal [facility] HCG ( test) IA.rapi d Ql (U)Ordered By: FRANCESCA NOE on 10-04-2023 HCG ( test) Ql (U) Negative [facility] HCG,Urineon 10-04-2023 Beta HCG ( test) Ql (U) Negative Normal [facility] Comment on above: Order Comment: Name Collection Type:: Clean-Voided Midstream Result Comment: PERF ORMED BY: [place] [address] PATHOLOGIST INTERVENTIONAL SALE CONSULTANT ALLA OROZCO M.D. Performed By: #### A [facility] #### [facility] [address] [place] [address] Hemoglobin Test strip Ql (U) Ordered By: Carmelo Vinson on 10-04-2023 Hemoglobin Ql (U) Negative Negative [facility] Hyaline casts [#/area] in Ur ine sediment by Automated countOrdered By: Camrelo Vinson on 10-04-2023 Hyaline casts Auto (Urine sed) [#/Area] 0-8 [LPF] 0-8 [facility] Ketones [Presence] in Urine by Test stripOrdered By: Carmelo Vinson on 10-04-2023 Ketones Ql (U) Trace High Negative [facility] Comment on above: Order Comment: Name Collection Type:: Clean-Voided Midstream Performed By: #### A JOSE, CG #### [facility] [address] [place] [address] [place] Leukocyte esterase [Presence ] in Urine by Test stripOrdered By: Carmelo Vinson on 10-04-2023 Leukocyte esterase Test strip Ql (U) Negative Normal Negative [facility] Comment on above: Order Comment: Name Collection Type:: Clean-Voided Midstream Performed By: #### A JOSE, CG #### [facility] [address] [place] [address] [place] Leukocytes [#/area] in Urine sediment by Automated countOrdered By: Carmelo Vinson on 10-04-2023 WBC Auto (Urine sed) [#/Area] 3-4 [HPF] 0-4 [facility] Mucus [Presence] in Urine by AutomatedOrdered By: Carmelo Vinson on 10-04-2023 Mucus Auto Ql (U) 4+ [LPF] Abnormal [facility] Nitrite Test strip Ql (U)Ord ered By: Carmelo Vinson on 10-04-2023 Nitrite Ql (U) Negative Negative [facility] Protein [Mass/volume] in Uri ne by Test stripOrdered By: Carmelo Vinson on 10-04-2023 Protein (U) [Mass/Vol] 30 mg/dL High Negative [facility] Comment on above: Order Comment: Name Collection Type:: Clean-Voided Midstream Performed By: #### A JOSE, CG #### [facility] [address] [place] [address] [place] Specific gravity Test strip (U) [Rel density]Ordered By: Carmelo Vinson on 10-04-2023 Specific gravity (U) [Rel density] 1.039 High 1.001-1.03 0 [facility] Urine appearanceOrdered By: Carmelo Vinson on 10-04-2023 Appearance (U) Clear Normal Clear [facility] Comment on above: Order Comment: Name Collection Type:: Clean-Voided Midstream Performed By: #### [facility] #### [address] Urobilinogen Test strip (U) [Mass/Vol]Ordered By: Carmelo Vinson on 10-04-2023 Urobilinogen (U) [Mass/Vol] 2 mg/dL High Normal [facility] pH of Urine by Test stripOrd ered By: Carmelo Vinson on 10-04-2023 pH (U) 6.0 [pH] Normal 5.0-9.0 [facility] Comment on above: Order Comment: Name Collection Type:: Clean-Voided Midstream Performed By: #### A [facility] #### [address] Alanine aminotransferase [En zymatic activity/volume] in Serum or PlasmaOrdered By: Nataly Toure on 09-30-2023 ALT [Catalytic activity/Vol] 14 U/L Normal 7-52 [facility] Comment on above: Order Comment: Reaso n for Exam Adenopathy Reason for Exam Iron deficiency Reason for Exam Hypothyroidism, unspecified type Performed By: #### C USTB #### [place] [address] [place] Albumin [Mass/volume] in Ser um or Plasma by Bromocresol green (BCG) dye binding methoOrdered By: Nataly Toure on 09-30-2023 Albumin BCG dye [Mass/Vol] 4.2 g/dL 3.5-5.7 [facility] Alkaline phosphatase [Enzyma tic activity/volume] in Serum or PlasmaOrdered By: Nataly Toure on 09-30-2023 ALP [Catalytic activity/Vol] 80 U/L Normal 34-104 [facility] Comment on above: Order Comment: Reaso n for Exam Adenopathy Reason for Exam Iron deficiency Reason for Exam Hypothyroidism, unspecified type Performed By: #### C USTB #### [place] [address] [place] Aspartate aminotransferase [ Enzymatic activity/volume] in Serum or PlasmaOrdered By: Nataly Toure on 09-30-2023 AST [Catalytic activity/Vol] 10 U/L Low 13-39 [facility] Comment on above: Order Comment: Reaso n for Exam Adenopathy Reason for Exam Iron deficiency Reason for Exam Hypothyroidism, unspecified type Performed By: #### C USTB #### [address] Automated basophil %Ordered By: Nataly Toure on 09-30-2023 Basophils/100 WBC (Bld) 0.5 % Normal . [facility] Comment on above: Order Comment: Reaso n for Exam Adenopathy Performed By: #### C USTB #### [address] Automated basophil countOrde red By: Nataly Toure on 09-30-2023 Basophils (Bld) [#/Vol] 0.0 10*3/uL Normal 0.0-0.2 [facility] Comment on above: Order Comment: Reaso n for Exam Adenopathy Result Comment: PERF ORMED BY: [place] [address] PATHOLOGIST INTERVENTIONAL SALE CONSULTANT ALLA OROZCO M.D. Performed By: #### C USTB #### [address] Automated blood monocyte cou ntOrdered By: Nataly Toure on 09-30-2023 Monocytes (Bld) [#/Vol] 0.7 10*3/uL Normal 0.0-0.8 [facility] Comment on above: Order Comment: Reaso n for Exam Adenopathy Performed By: #### C USTB #### [address] Automated eosinophil %Ordere d By: Nataly Toure on 09-30-2023 Eosinophils/100 WBC (Bld) 0.4 % Normal . [facility] Comment on above: Order Comment: Reaso n for Exam Adenopathy Performed By: #### C USTB #### [address] Automated eosinophil countOr dered By: Nataly Toure on 09-30-2023 Eosinophils (Bld) [#/Vol] 0.0 10*3/uL Normal 0.0-0.45 [facility] Comment on above: Order Comment: Reaso n for Exam Adenopathy Performed By: #### C USTB #### [address] Automated monocyte %Ordered By: Nataly Jerniganc on 09-30-2023 Monocytes/100 WBC (Bld) 8.0 % Normal . [facility] Comment on above: Order Comment: Reaso n for Exam Adenopathy Performed By: #### C USTB #### [address] Automated neutrophil %Ordere d By: Nataly Jerniganc on 09-30-2023 Neutrophils/100 WBC (Bld) 58.7 % Normal . [facility] Comment on above: Order Comment: Reaso n for Exam Adenopathy Performed By: #### C USTB #### [address] Bilirubin.total [Mass/volume ] in Serum or PlasmaOrdered By: Nataly Toure on 09-30-2023 Bilirubin [Mass/Vol] 0.3 mg/dL Normal 0.3-1.0 [facility] Comment on above: Order Comment: Reaso n for Exam Adenopathy Reason for Exam Iron deficiency Reason for Exam Hypothyroidism, unspecified type Performed By: #### C USTB #### [place] [address] [place] Calcium [Mass/volume] in Ser um or PlasmaOrdered By: Nataly Toure on 09-30-2023 Calcium [Mass/Vol] 9.3 mg/dL Normal 8.6-10.3 [facility] Comment on above: Order Comment: Reaso n for Exam Adenopathy Reason for Exam Iron deficiency Reason for Exam Hypothyroidism, unspecified type Performed By: #### C USTB #### [place] [address] [place] Carbon dioxide, total [Moles /volume] in Serum or PlasmaOrdered By: Nataly Toure on 09-30-2023 CO2 [Moles/Vol] 29.9 mmol/L Normal 21.0-31.0 [facility] Comment on above: Order Comment: Reaso n for Exam Adenopathy Reason for Exam Iron deficiency Reason for Exam Hypothyroidism, unspecified type Performed By: #### C USTB #### [address] Chloride [Moles/volume] in S rosa or PlasmaOrdered By: Nataly Toure on 09-30-2023 Chloride [Moles/Vol] 103 mmol/L Normal 98-107 [facility] Comment on above: Order Comment: Reaso n for Exam Adenopathy Reason for Exam Iron deficiency Reason for Exam Hypothyroidism, unspecified type Performed By: #### C USTB #### [address] Complete Blood Count Auto Di ffon 09-30-2023 Mean Corpuscular HGB Conc 33.2 g/dL Normal 32.0-35.0 [facility] Comment on above: Order Comment: Reaso n for Exam Adenopathy Performed By: #### C USTB #### [address] NRBC% 0.1 /100{WBC} Normal 0-0.5 [facility] Comment on above: Order Comment: Reaso n for Exam Adenopathy Performed By: #### C USTB #### [address] Comprehensive Metabolic Pane marco 09-30-2023 Albumin [Mass/Vol] 4.2 g/dL Normal 3.5-5.7 [facility] Comment on above: Order Comment: Reaso n for Exam Adenopathy Reason for Exam Iron deficiency Reason for Exam Hypothyroidism, unspecified type Performed By: #### C USTB #### [address] GFR/1.73 sq M.predicted MDRD (S/P/Bld) [Vol rate/Area] mL/min/{1.73_m2} Normal [facility] Comment on above: Order Comment: Reaso n for Exam Adenopathy Reason for Exam Iron deficiency Reason for Exam Hypothyroidism, unspecified type Performed By: #### C USTB #### [address] Creatinine [Mass/volume] in Serum or PlasmaOrdered By: Nataly Toure on 09-30-2023 Creatinine [Mass/Vol] 0.73 mg/dL Normal 0.60-1.20 [facility] Comment on above: Order Comment: Reaso n for Exam Adenopathy Reason for Exam Iron deficiency Reason for Exam Hypothyroidism, unspecified type Performed By: #### C USTB #### [address] D-Dimer High Sensitivityon 0 09-30-2023 D-Dimer High Sensitivity < 200 Normal 0-243 [facility] Comment on above: Order Comment: [...] coagulation studies. Please contact the laboratory at [phone] for redraw instructions. PERFORMED BY: [place] [address] PATHOLOGIST INTERVENTIONAL SALE CONSULTANT ALLA OROZCO M.D. Performed By: #### G TT3 #### [address] Erythrocyte distribution wid th [Ratio] by Automated countOrdered By: Nataly Toure on 09-30-2023 Erythrocyte distribution width (RBC) [Ratio] 15.0 % Normal 11.9-15.3 [facility] Comment on above: Order Comment: Reaso n for Exam Adenopathy Performed By: #### C USTB #### [facility] [address] [place] [id number] [place] Erythrocytes [#/volume] in B lood by Automated countOrdered By: Nataly Toure on 09-30-2023 RBC (Bld) [#/Vol] 4.79 10*6/uL Normal 3.60-5.00 [facility] Comment on above: Order Comment: Reaso n for Exam Adenopathy Performed By: #### C USTB #### [facility] [address] [place] [address] [facility] Fibrin D-dimer [Presence] in Platelet poor plasma by Latex agglutinationOrdered By: Nataly Toure on 09-30-2023 Fibrin D-dimer LA Ql (PPP) < 200 ng/mL 0-243 [facility] Comment on above: The reference range [...] coagulation studies. Please contact the laboratory at [phone] for redraw instructions. Glucose [Mass/volume] in Ser um or PlasmaOrdered By: Nataly Toure on 09-30-2023 Glucose [Mass/Vol] 75 mg/dL Normal 70-100 [facility] Comment on above: ADA recommended refe rence rangeRandom Glucose Reference Range is dependent on time and content of last meal. Glucose of more than 200 mg/dL in a nonstressed, ambulatory subject supports the diagnosis of Diabetes Mellitus. Order Comment: Reaso n for Exam Adenopathy Reason for Exam Iron deficiency Reason for Exam Hypothyroidism, unspecified type Result Comment: [place] Glucose Reference Range is dependent on time and content of last meal. Glucose of more than 200 mg/dL in a nonstressed, ambulatory subject supports the diagnosis of Diabetes Mellitus. ADA recommended reference range Performed By: #### C USTB #### [address] Hematocrit [Volume Fraction] of Blood by Automated countOrdered By: Nataly Toure on 09-30-2023 Hematocrit (Bld) [Volume fraction] 37.9 % Normal 34.0-46.4 [facility] Comment on above: Order Comment: Reaso n for Exam Adenopathy Performed By: #### C USTB #### [address] Hemoglobin [Mass/volume] in BloodOrdered By: Nataly Toure on 09-30-2023 Hemoglobin (Bld) [Mass/Vol] 12.6 g/dL Normal 11.8-15.4 [facility] Comment on above: Order Comment: Reaso n for Exam Adenopathy Performed By: #### C USTB #### [address] Iron [Mass/volume] in Serum or PlasmaOrdered By: Nataly Toure on 09-30-2023 Iron [Mass/Vol] 43 ug/dL Low 50-212 [facility] Comment on above: Order Comment: Reaso n for Exam Adenopathy Reason for Exam Iron deficiency Reason for Exam Hypothyroidism, unspecified type Performed By: #### G TT3 #### [place] [address] [place] Iron and TIBC Profileon 09-15 % Iron Saturation 10.6 % Low 20-50 [facility] Comment on above: Order Comment: Reaso n for Exam Adenopathy Reason for Exam Iron deficiency Reason for Exam Hypothyroidism, unspecified type Performed By: #### G TT3 #### [place] [id number] [facility] Total Iron Binding Capacity 406 ug/dL Normal 255-450 [facility] Comment on above: Order Comment: Reaso n for Exam Adenopathy Reason for Exam Iron deficiency Reason for Exam Hypothyroidism, unspecified type Performed By: #### G TT3 #### [facility] [address] Iron binding capacity [Mass/ volume] in Serum or PlasmaOrdered By: Nataly Toure on 09-30-2023 Iron binding capacity [Mass/Vol] 406 ug/dL 255-450 [facility] Iron saturation [Mass Fracti on] in Serum or PlasmaOrdered By: Nataly Toure on 09-30-2023 Iron saturation [Mass fraction] 10.6 % Low 20-50 [facility] Leukocytes [#/volume] correc kee for nucleated erythrocytes in Blood by Automated counOrdered By: Nataly Toure on 09-30-2023 WBC corrected for nucl RBC Auto (Bld) [#/Vol] 8.2 10*3/uL 3.8-11.6 [facility] Leukocytes [#/volume] in Blo od by Automated countOrdered By: Nataly Toure on 09-30-2023 WBC (Bld) [#/Vol] 8.2 10*3/uL Normal 3.8-11.6 [facility] Comment on above: Order Comment: Reaso n for Exam Adenopathy Performed By: #### C USTB #### [facility] [address] [place] [address] [place] Lymphocytes [#/volume] in Bl ood by Automated countOrdered By: Nataly Toure on 09-30-2023 Lymphocytes (Bld) [#/Vol] 2.7 10*3/uL Normal 1.00-4.8 [facility] Comment on above: Order Comment: Reaso n for Exam Adenopathy Performed By: #### C USTB #### [facility] [address] [place] [address] [place] Lymphocytes/100 leukocytes i n Blood by Automated countOrdered By: Nataly Toure on 09-30-2023 Lymphocytes/100 WBC (Bld) 32.4 % Normal . [facility] Comment on above: Order Comment: Reaso n for Exam Adenopathy Performed By: #### C USTB #### [facility] [address] [place] [address] MCH [Entitic mass] by Automa kee countOrdered By: Nataly Toure on 09-30-2023 MCH (RBC) [Entitic mass] 26.3 pg Normal 24.7-34.3 [facility] Comment on above: Order Comment: Reaso n for Exam Adenopathy Performed By: #### C USTB #### [facility] [address] [place] [address] MCHC Auto (RBC) [Mass/Vol]Or dered By: Nataly Toure on 09-30-2023 MCHC (RBC) [Mass/Vol] 33.2 g/dL 32.0-35.0 [facility] MCV [Entitic volume] by Auto mated countOrdered By: Nataly Toure on 09-30-2023 MCV (RBC) [Entitic vol] 79.1 fL Low 80-100 [facility] Comment on above: Order Comment: Reaso n for Exam Adenopathy Performed By: #### C USTB #### [facility] [address] [place] [address] Neutrophils [#/volume] in Bl ood by Automated countOrdered By: Nataly Toure on 09-30-2023 Neutrophils (Bld) [#/Vol] 4.8 10*3/uL Normal 1.8-7.7 [facility] Comment on above: Order Comment: Reaso n for Exam Adenopathy Performed By: #### C USTB #### [address] No Panel InformationOrdered By: Nataly Toure on 09-30-2023 Estimated GFR (CKD-EPI) > 60.0 mL/Min [facility] Creatinine Clearance (Chem N/A [facility] Nucleated erythrocytes [Pres ence] in Blood by Automated countOrdered By: Nataly Toure on 09-30-2023 Nucleated RBC Auto Ql (Bld) 0.1 /100{WBC} 0-0.5 [facility] Platelet mean volume [Entiti c volume] in Blood by Automated countOrdered By: Nataly Toure on 09-30-2023 Platelet mean volume (Bld) [Entitic vol] 9.2 fL Normal 6.3-10.7 [facility] Comment on above: Order Comment: Reaso n for Exam Adenopathy Performed By: #### C USTB #### [facility] [address] [place] [address] [place] Platelets [#/volume] in Bloo d by Automated countOrdered By: Nataly Toure on 09-30-2023 Platelets (Bld) [#/Vol] 246 10*3/uL Normal 150-450 [facility] Comment on above: Order Comment: Reaso n for Exam Adenopathy Performed By: #### C USTB #### [address] Potassium [Moles/volume] in Serum or PlasmaOrdered By: Nataly Toure on 09-30-2023 Potassium [Moles/Vol] 3.9 mmol/L Normal 3.5-5.1 [facility] Comment on above: Order Comment: Reaso n for Exam Adenopathy Reason for Exam Iron deficiency Reason for Exam Hypothyroidism, unspecified type Performed By: #### C USTB #### [facility] [address] [place] [address] [place] Protein [Mass/volume] in Ser um or PlasmaOrdered By: Nataly Toure on 09-30-2023 Protein [Mass/Vol] 7.0 g/dL Normal 6.4-8.9 [facility] Comment on above: Order Comment: Reaso n for Exam Adenopathy Reason for Exam Iron deficiency Reason for Exam Hypothyroidism, unspecified type Performed By: #### C USTB #### [facility] [address] [place] [address] [place] Serum globulin measurement b y calculation (mass/volume)Ordered By: Nataly Toure on 09-30-2023 Globulin (S) [Mass/Vol] 2.8 g/dL Normal [facility] Comment on above: Order Comment: Reaso n for Exam Adenopathy Reason for Exam Iron deficiency Reason for Exam Hypothyroidism, unspecified type Performed By: #### C USTB #### [address] Serum or plasma albumin/glob ulin mass ratioOrdered By: Nataly Toure on 09-30-2023 Albumin/Globulin [Mass ratio] 1.5 {ratio} Normal [facility] Comment on above: Order Comment: Reaso n for Exam Adenopathy Reason for Exam Iron deficiency Reason for Exam Hypothyroidism, unspecified type Performed By: #### C USTB #### [address] Serum or plasma anion gap de terminationOrdered By: Nataly Toure on 09-30-2023 Anion gap [Moles/Vol] 11.0 mmol/L Normal 6.0-15.0 [facility] Comment on above: Order Comment: Reaso n for Exam Adenopathy Reason for Exam Iron deficiency Reason for Exam Hypothyroidism, unspecified type Performed By: #### C USTB #### [address] Sodium [Moles/volume] in Ser um or PlasmaOrdered By: Nataly Toure on 09-30-2023 Sodium [Moles/Vol] 140 mmol/L Normal 136-145 [facility] Comment on above: Order Comment: Reaso n for Exam Adenopathy Reason for Exam Iron deficiency Reason for Exam Hypothyroidism, unspecified type Performed By: #### C USTB #### [address] Thyroid Stim Hormone w/Rflxo n 09-30-2023 Thyroid Stim Hormone w/Rflx 4.99 u[iU]/mL Normal 0.45-5.33 [facility] Comment on above: Order Comment: Reaso n for Exam Adenopathy Reason for Exam Iron deficiency Reason for Exam Hypothyroidism, unspecified type Result Comment: PERF ORMED BY: [place] [address] PATHOLOGIST INTERVENTIONAL SALE CONSULTANT ALLA OROZCO M.D. Performed By: #### G TT3 #### [address] Thyrotropin [Units/volume] i n Serum or PlasmaOrdered By: Nataly Toure on 09-30-2023 TSH Qn 4.99 m[IU]/L 0.45-5.33 [facility] Transferrin [Mass/volume] in Serum or PlasmaOrdered By: Nataly Toure on 09-30-2023 Transferrin [Mass/Vol] 290 mg/dL Normal 203-362 [facility] Comment on above: Order Comment: Reaso n for Exam Adenopathy Reason for Exam Iron deficiency Reason for Exam Hypothyroidism, unspecified type Performed By: #### G TT3 #### [facility] [address] [place] [address] Urea nitrogen [Mass/volume] in Serum or PlasmaOrdered By: Nataly Toure on 09-30-2023 Urea nitrogen [Mass/Vol] 23 mg/dL Normal 7-25 [facility] Comment on above: Order Comment: Reaso n for Exam Adenopathy Reason for Exam Iron deficiency Reason for Exam Hypothyroidism, unspecified type Performed By: #### C USTB #### [facility] [address] [place] [address] CT lumbar spine wo conon CT lumbar spine wo con [facility] [place] [address] CT Scan Report Signed Patient: Rosette Alba MR#: [id number] : 2000 Acct:[id number] Age/Sex: 23 / F ADM Date: 09/26/23 Loc: ER Room: Type: [facility] ER Attending Dr: Copies to: Devon Leon [...] Deborah Vazquez M.D.09/27/2023 8:13 AM Dictation Location: [place] [address] Transcribed By: [facility] 09/27/23812 Dictated By: Deborah Vazquez MD 09/27/23803 Signed By: 09/27/23 08 Normal [facility] Bacteria [Presence] in Urine by AutomatedOrdered By: Devon Leon on 09-26-2023 Bacteria Auto Ql (U) Rare [HPF] None Seen [facility] Bilirubin Test strip Ql (U)O rdered By: Devon Leon on 09-26-2023 Bilirubin Ql (U) Negative Negative [facility] Color of Urine by AutoOrdere d By: Devon Leon on 09-26-2023 Color (U) Light-yellow Normal Yellow [facility] Comment on above: Order Comment: Name Collection Type:: Clean-Voided Midstream Performed By: #### A DDONUAPLUSYUSUFU #### [address] Dipstick and Microscopicon 0 09-26-2023 Bacteria,Urine Rare Normal None Seen [facility] Comment on above: Order Comment: Name Collection Type:: Clean-Voided Midstream Performed By: #### A DDONUAPLUS, CUU #### [place] [address] [place] Bilirubin,Urine Negative Normal Negative [facility] Comment on above: Order Comment: Name Collection Type:: Clean-Voided Midstream Performed By: #### A DDONUAPLUS, CUU #### [address] Glucose Ql (U) Normal Normal Normal [facility] Comment on above: Order Comment: Name Collection Type:: Clean-Voided Midstream Performed By: #### A DDONUAPLUS, CUU #### [place] [address] [place] Hyaline Casts,Urine None Normal 0-8 [facility] Comment on above: Order Comment: Name Collection Type:: Clean-Voided Midstream Performed By: #### A DDONUAPLUS, CUU #### [address] Mucus,Urine 2+ Critically abnormal [facility] Comment on above: Order Comment: Name Collection Type:: Clean-Voided Midstream Performed By: #### A DDONUAPLUS, CUU #### [place] [address] [place] Nitrite,Urine Negative Normal Negative [facility] Comment on above: Order Comment: Name Collection Type:: Clean-Voided Midstream Performed By: #### A DDONUAPLUS, CUU #### [place] [address] [place] Occult Blood,Urine 2+ High Negative [facility] Comment on above: Order Comment: Name Collection Type:: Clean-Voided Midstream Result Comment: PERF ORMED BY: [place] [address] PATHOLOGIST INTERVENTIONAL SALE CONSULTANT ALLA OROZCO M.D. Performed By: #### A DDONUAPLUS, CUU #### [place] [address] [place] Protein,Urine Trace High Negative [facility] Comment on above: Order Comment: Name Collection Type:: Clean-Voided Midstream Performed By: #### A DDONUAPLUS, CUU #### [place] [address] [place] RBC,Urine 3-4 Normal 0-4 [facility] Comment on above: Order Comment: Name Collection Type:: Clean-Voided Midstream Performed By: #### A DDONUAPLUS, CUU #### [address] Specificy [place],Urine 1.030 Normal 1.001-1.03 0 [facility] Comment on above: Order Comment: Name Collection Type:: Clean-Voided Midstream Performed By: #### A DDONUAPLUS, CUU #### [address] Sperm,Urine 5-9 High 0-2 [facility] Comment on above: Order Comment: Name Collection Type:: Clean-Voided Midstream Result Comment: PERF ORMED BY: [place] [address] PATHOLOGIST INTERVENTIONAL SALE CONSULTANT ALLA OROZCO M.D. Performed By: #### A DDONUAPLUS, CUU #### [address] Squamous Epithelial Cell,Urine 5-9 High 0-2 [facility] Comment on above: Order Comment: Name Collection Type:: Clean-Voided Midstream Performed By: #### A DDONUAPLUS, CUU #### [place] [id number] [place] Urobilinogen,Urine Normal Normal Normal [facility] Comment on above: Order Comment: Name Collection Type:: Clean-Voided Midstream Performed By: #### A DDONUAPLUS, CUU #### [place] [address] [place] WBC,Urine 5-9 High 0-4 [facility] Comment on above: Order Comment: Name Collection Type:: Clean-Voided Midstream Performed By: #### A DDONUAPLUS, CUU #### [facility] [address] [place] [address] [place] Epithelial cells.squamous [# /area] in Urine sediment by Automated countOrdered By: Devon Leon on 09-26-2023 Epithelial cells.squamous Auto (Urine sed) [#/Area] 5-9 [HPF] High 0-2 [facility] Erythrocytes [#/area] in Uri ne sediment by Automated countOrdered By: Devon Leon on 09-26-2023 RBC Auto (Urine sed) [#/Area] 3-4 [HPF] 0-4 [facility] Glucose [Mass/volume] in Uri ne by Test stripOrdered By: Devon Leon on 09-26-2023 Glucose Test strip (U) [Mass/Vol] Normal mg/dL Normal [facility] Hemoglobin Test strip Ql (U) Ordered By: Devon Leon on 09-26-2023 Hemoglobin Ql (U) 2+ High Negative [facility] Hyaline casts [#/area] in Ur ine sediment by Automated countOrdered By: Devon Leon on 09-26-2023 Hyaline casts Auto (Urine sed) [#/Area] None [LPF] 0-8 [facility] Ketones [Presence] in Urine by Test stripOrdered By: Devon Leon on 09-26-2023 Ketones Ql (U) Negative Normal Negative [facility] Comment on above: Order Comment: Name Collection Type:: Clean-Voided Midstream Performed By: #### A JOSE CUU #### [facility] [address] [place] [address] [place] Leukocyte esterase [Presence ] in Urine by Test stripOrdered By: Devon Leon on 09-26-2023 Leukocyte esterase Test strip Ql (U) 2+ High Negative [facility] Comment on above: Order Comment: Name Collection Type:: Clean-Voided Midstream Performed By: #### A JOSE, CUU #### [facility] [address] [place] [address] [place] Leukocytes [#/area] in Urine sediment by Automated countOrdered By: Devon Leon on 09-26-2023 WBC Auto (Urine sed) [#/Area] 5-9 [HPF] High 0-4 [facility] Mucus [Presence] in Urine by AutomatedOrdered By: Devon Leon on 09-26-2023 Mucus Auto Ql (U) 2+ [LPF] Abnormal [facility] Nitrite Test strip Ql (U)Ord ered By: Devon Leon on 09-26-2023 Nitrite Ql (U) Negative Negative [facility] Protein Test strip (U) [Mass /Vol]Ordered By: Devon Leon on 09-26-2023 Protein (U) [Mass/Vol] Trace mg/dL High Negative [facility] Specific gravity Test strip (U) [Rel density]Ordered By: Devon Leon on 09-26-2023 Specific gravity (U) [Rel density] 1.030 1.001-1.03 0 [facility] Spermatozoa [#/area] in Urin e sediment by Automated countOrdered By: Devon Leon on 09-26-2023 Spermatozoa Auto (Urine sed) [#/Area] 5-9 [HPF] High 0-2 [facility] Urine Cultureon 09-26-2023 Bacteria identified Cx Nom (U) ORGANISM: Strep agalactiae - (group b) (O:STRAGA) [place] Count 75,000 PERFORMED BY: [place] [address] PATHOLOGIST INTERVENTIONAL SALE CONSULTANT ALLA OROZCO M.D. Normal [facility] Comment on above: Performed By: #### A YUSUF GARCIAU #### [facility] [address] [place] [address] Urine appearanceOrdered By: Devon Leon on 09-26-2023 Appearance (U) Clear Normal Clear [facility] Comment on above: Order Comment: Name Collection Type:: Clean-Voided Midstream Performed By: #### A JOSE CUU #### [facility] [address] [place] [address] Urine culture routineOrdered By: Devon Leon on 09-26-2023 Bacteria identified Cx Nom (U) Strep agalactiae - (group b) Abnormal [facility] Urobilinogen Test strip (U) [Mass/Vol]Ordered By: Devon Leon on 09-26-2023 Urobilinogen (U) [Mass/Vol] Normal mg/dL Normal [facility] pH of Urine by Test stripOrd ered By: Devon Leon on 09-26-2023 pH (U) 6.0 [pH] Normal 5.0-9.0 [facility] Comment on above: Order Comment: Name Collection Type:: Clean-Voided Midstream Performed By: #### A DDYUSUF CLINTONU #### [facility] [address] [place] [id number] [place] Alanine aminotransferase [En zymatic activity/volume] in Serum or PlasmaOrdered By: Nataly Toure on 08-03-2023 ALT [Catalytic activity/Vol] 14 U/L Normal 7-52 [facility] Comment on above: Order Comment: Reaso n for Exam Hypothyroidism, unspecified type;High blood triglycerides Reason for Exam Iron deficiency Reason for Exam High blood triglycerides Reason for Exam Hypothyroidism, unspecified type Performed By: #### G TT3 #### [facility] [address] [place] [address] [place] Albumin [Mass/volume] in Ser um or Plasma by Bromocresol green (BCG) dye binding methoOrdered By: Nataly Toure on 08-03-2023 Albumin BCG dye [Mass/Vol] 4.4 g/dL 3.5-5.7 [facility] Alkaline phosphatase [Enzyma tic activity/volume] in Serum or PlasmaOrdered By: Nataly Toure on 08-03-2023 ALP [Catalytic activity/Vol] 85 U/L Normal 34-104 [facility] Comment on above: Order Comment: Reaso n for Exam Hypothyroidism, unspecified type;High blood triglycerides Reason for Exam Iron deficiency Reason for Exam High blood triglycerides Reason for Exam Hypothyroidism, unspecified type Performed By: #### G TT3 #### [facility] [address] [place] [id number] [place] Aspartate aminotransferase [ Enzymatic activity/volume] in Serum or PlasmaOrdered By: Nataly Toure on 08-03-2023 AST [Catalytic activity/Vol] 13 U/L Normal 13-39 [facility] Comment on above: Order Comment: Reaso n for Exam Hypothyroidism, unspecified type;High blood triglycerides Reason for Exam Iron deficiency Reason for Exam High blood triglycerides Reason for Exam Hypothyroidism, unspecified type Performed By: #### G TT3 #### [address] Automated basophil %Ordered By: Nataly Toure on 08-03-2023 Basophils/100 WBC (Bld) 0.4 % Normal . [facility] Comment on above: Order Comment: Reaso n for Exam Iron deficiency Performed By: #### G TT3 #### [address] Automated basophil countOrde red By: Nataly Jerniganc on 08-03-2023 Basophils (Bld) [#/Vol] 0.0 10*3/uL Normal 0.0-0.2 [facility] Comment on above: Order Comment: Reaso n for Exam Iron deficiency Result Comment: PERF ORMED BY: [place] [address] PATHOLOGIST INTERVENTIONAL SALE CONSULTANT ALLA OROZCO M.D. Performed By: #### G TT3 #### [address] Automated blood monocyte cou ntOrdered By: Nataly Toure on 08-03-2023 Monocytes (Bld) [#/Vol] 0.4 10*3/uL Normal 0.0-0.8 [facility] Comment on above: Order Comment: Reaso n for Exam Iron deficiency Performed By: #### G TT3 #### [address] Automated eosinophil %Ordere d By: Nataly Jerniganc on 08-03-2023 Eosinophils/100 WBC (Bld) 0.5 % Normal . [facility] Comment on above: Order Comment: Reaso n for Exam Iron deficiency Performed By: #### G TT3 #### [address] Automated eosinophil countOr dered By: Nataly Jerniganc on 08-03-2023 Eosinophils (Bld) [#/Vol] 0.0 10*3/uL Normal 0.0-0.45 [facility] Comment on above: Order Comment: Reaso n for Exam Iron deficiency Performed By: #### G TT3 #### [facility] [address] [place] [address] [place] Automated monocyte %Ordered By: Nataly Toure on 08-03-2023 Monocytes/100 WBC (Bld) 5.4 % Normal . [facility] Comment on above: Order Comment: Reaso n for Exam Iron deficiency Performed By: #### G TT3 #### [facility] [address] Automated neutrophil %Ordere d By: Nataly Jerniganc on 08-03-2023 Neutrophils/100 WBC (Bld) 70.9 % Normal . [facility] Comment on above: Order Comment: Reaso n for Exam Iron deficiency Performed By: #### G TT3 #### [facility] [address] [place] [address] Bilirubin.total [Mass/volume ] in Serum or PlasmaOrdered By: Nataly Toure on 08-03-2023 Bilirubin [Mass/Vol] 0.5 mg/dL Normal 0.3-1.0 [facility] Comment on above: Order Comment: Reaso n for Exam Hypothyroidism, unspecified type;High blood triglycerides Reason for Exam Iron deficiency Reason for Exam High blood triglycerides Reason for Exam Hypothyroidism, unspecified type Performed By: #### G TT3 #### [facility] [address] [place] [address] [place] Calcium [Mass/volume] in Ser um or PlasmaOrdered By: Nataly Toure on 08-03-2023 Calcium [Mass/Vol] 9.5 mg/dL Normal 8.6-10.3 [facility] Comment on above: Order Comment: Reaso n for Exam Hypothyroidism, unspecified type;High blood triglycerides Reason for Exam Iron deficiency Reason for Exam High blood triglycerides Reason for Exam Hypothyroidism, unspecified type Performed By: #### G TT3 #### [facility] [address] [place] [address] [place] Carbon dioxide, total [Moles /volume] in Serum or PlasmaOrdered By: Nataly Toure on 08-03-2023 CO2 [Moles/Vol] 27.2 mmol/L Normal 21.0-31.0 [facility] Comment on above: Order Comment: Reaso n for Exam Hypothyroidism, unspecified type;High blood triglycerides Reason for Exam Iron deficiency Reason for Exam High blood triglycerides Reason for Exam Hypothyroidism, unspecified type Performed By: #### G TT3 #### [facility] [address] [place] [address] [place] Chloride [Moles/volume] in S rosa or PlasmaOrdered By: Nataly Toure on 08-03-2023 Chloride [Moles/Vol] 105 mmol/L Normal 98-107 [facility] Comment on above: Order Comment: Reaso n for Exam Hypothyroidism, unspecified type;High blood triglycerides Reason for Exam Iron deficiency Reason for Exam High blood triglycerides Reason for Exam Hypothyroidism, unspecified type Performed By: #### G TT3 #### [facility] [address] [place] [address] [place] Cholesterol [Mass/volume] in Serum or PlasmaOrdered By: Nataly Toure on 08-03-2023 Cholesterol [Mass/Vol] 159 mg/dL Normal 140-200 [facility] Comment on above: Chol less than 200 [...] risk Performed By: #### G TT3 #### [facility] [address] [place] [address] [place] Cholesterol in LDL Calc [Mas s/Vol]Ordered By: Nataly Toure on 08-03-2023 Cholesterol in LDL [Mass/Vol] 82 mg/dL 0-100 [facility] Comment on above: LDL ATP III CLASSIFI CATIONLDL less than 100 mg/dL OptimalLDL 100-129 mg/dL Near or above optimalLDL 130-159 mg/dL Borderline highLDL 160-189 mg/dL HighLDL greater than 189 mg/dL Very high Cholesterol in VLDL Calc [Ma ss/Vol]Ordered By: Nataly Toure on 08-03-2023 Cholesterol in VLDL [Mass/Vol] 28 mg/dL [facility] Complete Blood Count Auto Di ffon 08-03-2023 Mean Corpuscular HGB Conc 33.1 g/dL Normal 32.0-35.0 [facility] Comment on above: Order Comment: Reaso n for Exam Iron deficiency Performed By: #### G TT3 #### [facility] [address] [place] [address] NRBC% 0.2 /100{WBC} Normal 0-0.5 [facility] Comment on above: Order Comment: Reaso n for Exam Iron deficiency Performed By: #### G TT3 #### [facility] [address] [place] [address] Comprehensive Metabolic Pane marco 08-03-2023 Albumin [Mass/Vol] 4.4 g/dL Normal 3.5-5.7 [facility] Comment on above: Order Comment: Reaso n for Exam Hypothyroidism, unspecified type;High blood triglycerides Reason for Exam Iron deficiency Reason for Exam High blood triglycerides Reason for Exam Hypothyroidism, unspecified type Performed By: #### G TT3 #### [facility] [address] [place] [address] GFR/1.73 sq M.predicted MDRD (S/P/Bld) [Vol rate/Area] mL/min/{1.73_m2} Normal [facility] Comment on above: Order Comment: Reaso n for Exam Hypothyroidism, unspecified type;High blood triglycerides Reason for Exam Iron deficiency Reason for Exam High blood triglycerides Reason for Exam Hypothyroidism, unspecified type Performed By: #### G TT3 #### [facility] [address] [place] [address] Creatinine [Mass/volume] in Serum or PlasmaOrdered By: Nataly Toure on 08-03-2023 Creatinine [Mass/Vol] 0.78 mg/dL Normal 0.60-1.20 [facility] Comment on above: Order Comment: Reaso n for Exam Hypothyroidism, unspecified type;High blood triglycerides Reason for Exam Iron deficiency Reason for Exam High blood triglycerides Reason for Exam Hypothyroidism, unspecified type Performed By: #### G TT3 #### [facility] [address] [place] [address] [place] Erythrocyte distribution wid th [Ratio] by Automated countOrdered By: Nataly Toure on 08-03-2023 Erythrocyte distribution width (RBC) [Ratio] 14.3 % Normal 11.9-15.3 [facility] Comment on above: Order Comment: Reaso n for Exam Iron deficiency Performed By: #### G TT3 #### [facility] [address] [place] [address] [place] Erythrocytes [#/volume] in B lood by Automated countOrdered By: Nataly Toure on 08-03-2023 RBC (Bld) [#/Vol] 4.72 10*6/uL Normal 3.60-5.00 [facility] Comment on above: Order Comment: Reaso n for Exam Iron deficiency Performed By: #### G TT3 #### [facility] [address] [place] [address] [place] Glucose [Mass/volume] in Ser um or PlasmaOrdered By: Nataly Toure on 08-03-2023 Glucose [Mass/Vol] 82 mg/dL Normal 70-100 [facility] Comment on above: ADA recommended refe rence [...] for Exam Hypothyroidism, unspecified type Result Comment: [place] om Glucose Reference Range is dependent on time and content of last meal. Glucose of more than 200 mg/dL in a nonstressed, ambulatory subject supports the diagnosis of Diabetes Mellitus. ADA recommended reference range Performed By: #### G TT3 #### [address] Hematocrit [Volume Fraction] of Blood by Automated countOrdered By: Nataly Toure on 08-03-2023 Hematocrit (Bld) [Volume fraction] 36.8 % Normal 34.0-46.4 [facility] Comment on above: Order Comment: Reaso n for Exam Iron deficiency Performed By: #### G TT3 #### [address] Hemoglobin [Mass/volume] in BloodOrdered By: Nataly Toure on 08-03-2023 Hemoglobin (Bld) [Mass/Vol] 12.2 g/dL Normal 11.8-15.4 [facility] Comment on above: Order Comment: Reaso n for Exam Iron deficiency Performed By: #### G TT3 #### [address] Insulinon 08-03-2023 Insulin 14.1 u[iU]/mL Normal 2.6-24.9 [facility] Comment on above: Order Comment: Name Collection Type:: Clean-Voided Midstream Result Comment: Perf ormed at: - [facility] [id number] [place] Worker: Sam Lopez PhD, Phone: [phone] PERFORMED BY: [place] [address] PATHOLOGIST INTERVENTIONAL SALE CONSULTANT ALLA OROZCO M.D. Performed By: #### [facility] [place] #### [address] Iron [Mass/volume] in Serum or PlasmaOrdered By: Nataly Toure on 08-03-2023 Iron [Mass/Vol] 43 ug/dL Low 50-212 [facility] Comment on above: Order Comment: Reaso n for Exam Hypothyroidism, unspecified type;High blood triglycerides Reason for Exam Iron deficiency Reason for Exam High blood triglycerides Reason for Exam Hypothyroidism, unspecified type Performed By: #### G TT3 #### [address] Iron and TIBC Profileon 07-16 % Iron Saturation 11.3 % Low 20-50 [facility] Comment on above: Order Comment: Reaso n for Exam Hypothyroidism, unspecified type;High blood triglycerides Reason for Exam Iron deficiency Reason for Exam High blood triglycerides Reason for Exam Hypothyroidism, unspecified type Performed By: #### G TT3 #### [facility] [address] Total Iron Binding Capacity 382 ug/dL Normal 255-450 [facility] Comment on above: Order Comment: Reaso n for Exam Hypothyroidism, unspecified type;High blood triglycerides Reason for Exam Iron deficiency Reason for Exam High blood triglycerides Reason for Exam Hypothyroidism, unspecified type Performed By: #### G TT3 #### [facility] [address] [place] [id number] [facility] Iron binding capacity [Mass/ volume] in Serum or PlasmaOrdered By: Nataly Toure on 08-03-2023 Iron binding capacity [Mass/Vol] 382 ug/dL 255-450 [facility] Iron saturation [Mass Fracti on] in Serum or PlasmaOrdered By: Nataly Toure on 08-03-2023 Iron saturation [Mass fraction] 11.3 % Low 20-50 [facility] Leukocytes [#/volume] correc kee for nucleated erythrocytes in Blood by Automated counOrdered By: Nataly Toure on 08-03-2023 WBC corrected for nucl RBC Auto (Bld) [#/Vol] 7.2 10*3/uL 3.8-11.6 [facility] Leukocytes [#/volume] in Blo od by Automated countOrdered By: Nataly Toure on 08-03-2023 WBC (Bld) [#/Vol] 7.2 10*3/uL Normal 3.8-11.6 [facility] Comment on above: Order Comment: Reaso n for Exam Iron deficiency Performed By: #### G TT3 #### [facility] [address] [place] [id number] [facility] Lipid Panelon 08-03-2023 LDL Cholesterol,Calculated 82 mg/dL Normal 0-100 [facility] Comment on above: Order Comment: [...] high Performed By: #### G TT3 #### [address] Triglyceride w/Reflex 140 mg/dL Normal 0-149 [facility] Comment on above: Order Comment: [...] method. Performed By: #### G TT3 #### [address] VLDL CHOLESTEROL 28 mg/dL Normal [facility] Comment on above: Order Comment: Reaso n for Exam Hypothyroidism, unspecified type;High blood triglycerides Reason for Exam Iron deficiency Reason for Exam High blood triglycerides Reason for Exam Hypothyroidism, unspecified type Performed By: #### G TT3 #### [address] Lymphocytes [#/volume] in Bl ood by Automated countOrdered By: Nataly Toure on 08-03-2023 Lymphocytes (Bld) [#/Vol] 1.6 10*3/uL Normal 1.00-4.8 [facility] Comment on above: Order Comment: Reaso n for Exam Iron deficiency Performed By: #### G TT3 #### [place] [address] [place] Lymphocytes/100 leukocytes i n Blood by Automated countOrdered By: Nataly Toure on 08-03-2023 Lymphocytes/100 WBC (Bld) 22.8 % Normal . [facility] Comment on above: Order Comment: Reaso n for Exam Iron deficiency Performed By: #### G TT3 #### [place] [address] [place] MCH [Entitic mass] by Automa kee countOrdered By: Nataly Toure on 08-03-2023 MCH (RBC) [Entitic mass] 25.8 pg Normal 24.7-34.3 [facility] Comment on above: Order Comment: Reaso n for Exam Iron deficiency Performed By: #### G TT3 #### [facility] [address] [place] [address] MCHC Auto (RBC) [Mass/Vol]Or dered By: Nataly Toure on 08-03-2023 MCHC (RBC) [Mass/Vol] 33.1 g/dL 32.0-35.0 [facility] MCV [Entitic volume] by Auto mated countOrdered By: Nataly Toure on 08-03-2023 MCV (RBC) [Entitic vol] 78.0 fL Low 80-100 [facility] Comment on above: Order Comment: Reaso n for Exam Iron deficiency Performed By: #### G TT3 #### [facility] [address] [place] [address] Neutrophils [#/volume] in Bl ood by Automated countOrdered By: Nataly Toure on 08-03-2023 Neutrophils (Bld) [#/Vol] 5.1 10*3/uL Normal 1.8-7.7 [facility] Comment on above: Order Comment: Reaso n for Exam Iron deficiency Performed By: #### G TT3 #### [facility] [address] [place] [address] No Panel InformationOrdered By: Nataly Toure on 08-03-2023 Estimated GFR (CKD-EPI) > 60.0 mL/Min [facility] Creatinine Clearance (Chem N/A [facility] Nucleated erythrocytes [Pres ence] in Blood by Automated countOrdered By: Nataly Toure on 08-03-2023 Nucleated RBC Auto Ql (Bld) 0.2 /100{WBC} 0-0.5 [facility] Platelet mean volume [Entiti c volume] in Blood by Automated countOrdered By: Nataly Toure on 08-03-2023 Platelet mean volume (Bld) [Entitic vol] 9.2 fL Normal 6.3-10.7 [facility] Comment on above: Order Comment: Reaso n for Exam Iron deficiency Performed By: #### G TT3 #### [facility] [address] Platelets [#/volume] in Bloo d by Automated countOrdered By: Nataly Toure on 08-03-2023 Platelets (Bld) [#/Vol] 260 10*3/uL Normal 150-450 [facility] Comment on above: Order Comment: Reaso n for Exam Iron deficiency Performed By: #### G TT3 #### [facility] [address] Potassium [Moles/volume] in Serum or PlasmaOrdered By: Nataly Toure on 08-03-2023 Potassium [Moles/Vol] 3.6 mmol/L Normal 3.5-5.1 [facility] Comment on above: Order Comment: Reaso n for Exam Hypothyroidism, unspecified type;High blood triglycerides Reason for Exam Iron deficiency Reason for Exam High blood triglycerides Reason for Exam Hypothyroidism, unspecified type Performed By: #### G TT3 #### [facility] [address] [place] [address] Protein [Mass/volume] in Ser um or PlasmaOrdered By: Nataly Toure on 08-03-2023 Protein [Mass/Vol] 7.2 g/dL Normal 6.4-8.9 [facility] Comment on above: Order Comment: Reaso n for Exam Hypothyroidism, unspecified type;High blood triglycerides Reason for Exam Iron deficiency Reason for Exam High blood triglycerides Reason for Exam Hypothyroidism, unspecified type Performed By: #### G TT3 #### [facility] [address] [place] [address] Serum globulin measurement b y calculation (mass/volume)Ordered By: Nataly Toure on 08-03-2023 Globulin (S) [Mass/Vol] 2.8 g/dL Normal [facility] Comment on above: Order Comment: Reaso n for Exam Hypothyroidism, unspecified type;High blood triglycerides Reason for Exam Iron deficiency Reason for Exam High blood triglycerides Reason for Exam Hypothyroidism, unspecified type Performed By: #### G TT3 #### [facility] [address] [place] [address] Serum or plasma albumin/glob ulin mass ratioOrdered By: Nataly Toure on 08-03-2023 Albumin/Globulin [Mass ratio] 1.6 {ratio} Normal [facility] Comment on above: Order Comment: Reaso n for Exam Hypothyroidism, unspecified type;High blood triglycerides Reason for Exam Iron deficiency Reason for Exam High blood triglycerides Reason for Exam Hypothyroidism, unspecified type Performed By: #### G TT3 #### [facility] [address] Serum or plasma anion gap de terminationOrdered By: Nataly Toure on 08-03-2023 Anion gap [Moles/Vol] 11.4 mmol/L Normal 6.0-15.0 [facility] Comment on above: Order Comment: Reaso n for Exam Hypothyroidism, unspecified type;High blood triglycerides Reason for Exam Iron deficiency Reason for Exam High blood triglycerides Reason for Exam Hypothyroidism, unspecified type Performed By: #### G TT3 #### [facility] [address] Serum or plasma high density lipoprotein (HDL) cholesterol measurementOrdered By: Nataly Toure on 08-03-2023 Cholesterol in HDL [Mass/Vol] 49 mg/dL Normal 23-92 [facility] Comment on above: HDL CHOL ATP-III [...] HIGH Performed By: #### G TT3 #### [facility] [address] Serum or plasma insulin nikita urement (units/volume)Ordered By: Nataly Toure on 08-03-2023 Insulin Qn 14.1 u[iU]/mL 2.6-24.9 [facility] Comment on above: Performed at: [address] [id number] Director: Sam Lopez PhD, Phone: [phone] Serum or plasma total choles terol/high density lipoprotein (HDL) cholesterol mass ratOrdered By: Nataly Toure on 08-03-2023 Cholesterol.total/Chol esterol in HDL [Mass ratio] 3.2 {ratio} Normal <5.0 [facility] Comment on above: Order Comment: Reaso n for Exam Hypothyroidism, unspecified type;High blood triglycerides Reason for Exam Iron deficiency Reason for Exam High blood triglycerides Reason for Exam Hypothyroidism, unspecified type Performed By: #### G TT3 #### [facility] [address] [place] [address] [place] Sodium [Moles/volume] in Ser um or PlasmaOrdered By: Nataly Toure on 08-03-2023 Sodium [Moles/Vol] 140 mmol/L Normal 136-145 [facility] Comment on above: Order Comment: Reaso n for Exam Hypothyroidism, unspecified type;High blood triglycerides Reason for Exam Iron deficiency Reason for Exam High blood triglycerides Reason for Exam Hypothyroidism, unspecified type Performed By: #### G TT3 #### [facility] [address] [place] [address] Thyroid Stim Hormone w/Rflxo n 08-03-2023 Thyroid Stim Hormone w/Rflx 3.20 u[iU]/mL Normal 0.45-5.33 [facility] Comment on above: Order Comment: Reaso n for Exam Hypothyroidism, unspecified type;High blood triglycerides Reason for Exam Iron deficiency Reason for Exam High blood triglycerides Reason for Exam Hypothyroidism, unspecified type Result Comment: PERF ORMED BY: [address] [place] [address] PATHOLOGIST INTERVENTIONAL SALE CONSULTANT ALLA OROZCO M.D. Performed By: #### G TT3 #### [facility] [address] [place] [address] Thyrotropin [Units/volume] i n Serum or PlasmaOrdered By: Nataly Toure on 08-03-2023 TSH Qn 3.20 m[IU]/L 0.45-5.33 [facility] Transferrin [Mass/volume] in Serum or PlasmaOrdered By: Nataly Toure on 08-03-2023 Transferrin [Mass/Vol] 273 mg/dL Normal 203-362 [facility] Comment on above: Order Comment: Reaso n for Exam Hypothyroidism, unspecified type;High blood triglycerides Reason for Exam Iron deficiency Reason for Exam High blood triglycerides Reason for Exam Hypothyroidism, unspecified type Performed By: #### G TT3 #### [address] Triglyceride [Mass/volume] i n Serum or PlasmaOrdered By: Nataly Toure on 08-03-2023 Triglyceride [Mass/Vol] 140 mg/dL 0-149 [facility] Comment on above: TRIG ATP III CLASSIF ICATIONTRIG less than 150 mg/dL NormalTRIG 150-199 mg/dL Borderline highTRIG 200-500 mg/dL High TRIG greater than 500 mg/dL Very highStandard traceable to the Center for Disease Conrtrol and Prevention (CDC) test method. Urea nitrogen [Mass/volume] in Serum or PlasmaOrdered By: Nataly Toure on 08-03-2023 Urea nitrogen [Mass/Vol] 10 mg/dL Normal 7-25 [facility] Comment on above: Order Comment: Reaso n for Exam Hypothyroidism, unspecified type;High blood triglycerides Reason for Exam Iron deficiency Reason for Exam High blood triglycerides Reason for Exam Hypothyroidism, unspecified type Performed By: #### G TT3 #### [address] Complete Blood Count Auto Di ffon 04-15-2023 Basophils (Bld) [#/Vol] 0.0 10*3/uL Normal 0.0-0.2 [facility] Comment on above: Order Comment: Reaso n for Exam Iron deficiency Result Comment: PERF ORMED BY: [place] [address] PATHOLOGIST INTERVENTIONAL SALE CONSULTANT ALLA OROZCO M.D. Performed By: #### C BC #### [address] #### RPR W RFX #### [facility] , Basophils/100 WBC (Bld) 0.5 % Normal . [facility] Comment on above: Order Comment: Reaso n for Exam Iron deficiency Performed By: #### C BC #### [facility] [address] [place] [address] [place] #### RPR W RFX #### [facility] , Eosinophils (Bld) [#/Vol] 0.2 10*3/uL Normal 0.0-0.45 [facility] Comment on above: Order Comment: Reaso n for Exam Iron deficiency Performed By: #### C BC #### [facility] [address] [place] [address] [place] #### RPR W RFX #### [facility] , Eosinophils/100 WBC (Bld) 3.8 % Normal . [facility] Comment on above: Order Comment: Reaso n for Exam Iron deficiency Performed By: #### C BC #### [address] #### RPR W RFX #### [facility] , Erythrocyte distribution width (RBC) [Ratio] 16.9 % High 11.9-15.3 [facility] Comment on above: Order Comment: Reaso n for Exam Iron deficiency Performed By: #### C BC #### [address] #### RPR W RFX #### [facility] , Hematocrit (Bld) [Volume fraction] 36.2 % Normal 34.0-46.4 [facility] Comment on above: Order Comment: Reaso n for Exam Iron deficiency Performed By: #### C BC #### [place] [address] [place] #### RPR W RFX #### [facility] , Hemoglobin (Bld) [Mass/Vol] 12.0 g/dL Normal 11.8-15.4 [facility] Comment on above: Order Comment: Reaso n for Exam Iron deficiency Performed By: #### C BC #### [place] [address] [place] #### RPR W RFX #### [facility] , Lymphocytes (Bld) [#/Vol] 1.6 10*3/uL Normal 1.00-4.8 [facility] Comment on above: Order Comment: Reaso n for Exam Iron deficiency Performed By: #### C BC #### [address] #### RPR W RFX #### [facility] , Lymphocytes/100 WBC (Bld) 28.1 % Normal . [facility] Comment on above: Order Comment: Reaso n for Exam Iron deficiency Performed By: #### C BC #### [address] #### RPR W RFX #### [facility] , MCH (RBC) [Entitic mass] 25.7 pg Normal 24.7-34.3 [facility] Comment on above: Order Comment: Reaso n for Exam Iron deficiency Performed By: #### C BC #### [address] #### RPR W RFX #### [facility] , MCV (RBC) [Entitic vol] 77.7 fL Low 80-100 [facility] Comment on above: Order Comment: Reaso n for Exam Iron deficiency Performed By: #### C BC #### [address] #### RPR W RFX #### [facility] , Mean Corpuscular HGB Conc 33.1 g/dL Normal 32.0-35.0 [facility] Comment on above: Order Comment: Reaso n for Exam Iron deficiency Performed By: #### C BC #### [address] #### RPR W RFX #### [facility] , Monocytes (Bld) [#/Vol] 0.5 10*3/uL Normal 0.0-0.8 [facility] Comment on above: Order Comment: Reaso n for Exam Iron deficiency Performed By: #### C BC #### [address] #### RPR W RFX #### [facility] , Monocytes/100 WBC (Bld) 9.0 % Normal . [facility] Comment on above: Order Comment: Reaso n for Exam Iron deficiency Performed By: #### C BC #### [address] #### RPR W RFX #### [facility] , Neutrophils (Bld) [#/Vol] 3.3 10*3/uL Normal 1.8-7.7 [facility] Comment on above: Order Comment: Reaso n for Exam Iron deficiency Performed By: #### C BC #### [address] #### RPR W RFX #### [facility] , Neutrophils/100 WBC (Bld) 58.6 % Normal . [facility] Comment on above: Order Comment: Reaso n for Exam Iron deficiency Performed By: #### C BC #### [address] #### RPR W RFX #### [facility] , NRBC% 0.1 /100{WBC} Normal 0-0.5 [facility] Comment on above: Order Comment: Reaso n for Exam Iron deficiency Performed By: #### C BC #### [facility] [address] [place] [address] [place] #### RPR W RFX #### [facility] , Platelet mean volume (Bld) [Entitic vol] 9.1 fL Normal 6.3-10.7 [facility] Comment on above: Order Comment: Reaso n for Exam Iron deficiency Performed By: #### C BC #### [facility] [address] [place] [address] [place] #### RPR W RFX #### [facility] , Platelets (Bld) [#/Vol] 220 10*3/uL Normal 150-450 [facility] Comment on above: Order Comment: Reaso n for Exam Iron deficiency Performed By: #### C BC #### [facility] [address] [place] [address] [place] #### RPR W RFX #### [facility] , RBC (Bld) [#/Vol] 4.66 10*6/uL Normal 3.60-5.00 [facility] Comment on above: Order Comment: Reaso n for Exam Iron deficiency Performed By: #### C BC #### [address] #### RPR W RFX #### [facility] , WBC (Bld) [#/Vol] 5.6 10*3/uL Normal 3.8-11.6 [facility] Comment on above: Order Comment: Reaso n for Exam Iron deficiency Performed By: #### C BC #### [facility] [address] [place] [address] [place] #### RPR W RFX #### [facility] , Comprehensive Metabolic Pane marco 04-15-2023 Albumin [Mass/Vol] 4.1 g/dL Normal 3.5-5.7 [facility] Comment on above: Order Comment: Reaso n for Exam Iron deficiency Reason for Exam High blood triglycerides Performed By: #### C BC #### [facility] [address] [place] [address] [place] #### RPR W RFX #### [facility] , Albumin/Globulin [Mass ratio] 1.4 {ratio} Normal [facility] Comment on above: Order Comment: Reaso n for Exam Iron deficiency Reason for Exam High blood triglycerides Performed By: #### C BC #### [facility] [address] [place] [address] #### RPR W RFX #### [facility] , ALP [Catalytic activity/Vol] 89 U/L Normal 34-104 [facility] Comment on above: Order Comment: Reaso n for Exam Iron deficiency Reason for Exam High blood triglycerides Performed By: #### C BC #### [facility] [address] [place] [address] #### RPR W RFX #### [facility] , ALT [Catalytic activity/Vol] 14 U/L Normal 7-52 [facility] Comment on above: Order Comment: Reaso n for Exam Iron deficiency Reason for Exam High blood triglycerides Performed By: #### C BC #### [facility] [address] [place] [address] #### RPR W RFX #### [facility] , Anion gap [Moles/Vol] 10.2 mmol/L Normal 6.0-15.0 [facility] Comment on above: Order Comment: Reaso n for Exam Iron deficiency Reason for Exam High blood triglycerides Performed By: #### C BC #### [facility] [address] [place] [address] #### RPR W RFX #### [facility] , AST [Catalytic activity/Vol] 13 U/L Normal 13-39 [facility] Comment on above: Order Comment: Reaso n for Exam Iron deficiency Reason for Exam High blood triglycerides Performed By: #### C BC #### [facility] [address] [place] [address] #### RPR W RFX #### [facility] , Bilirubin [Mass/Vol] 0.3 mg/dL Normal 0.3-1.0 [facility] Comment on above: Order Comment: Reaso n for Exam Iron deficiency Reason for Exam High blood triglycerides Performed By: #### C BC #### [facility] [address] [place] [address] [place] #### RPR W RFX #### [facility] , Calcium [Mass/Vol] 9.0 mg/dL Normal 8.6-10.3 [facility] Comment on above: Order Comment: Reaso n for Exam Iron deficiency Reason for Exam High blood triglycerides Performed By: #### C BC #### [facility] [address] [place] [address] #### RPR W RFX #### [facility] , Chloride [Moles/Vol] 105 mmol/L Normal 98-107 [facility] Comment on above: Order Comment: Reaso n for Exam Iron deficiency Reason for Exam High blood triglycerides Performed By: #### C BC #### [facility] [address] [place] [address] #### RPR W RFX #### [facility] , CO2 [Moles/Vol] 27.9 mmol/L Normal 21.0-31.0 [facility] Comment on above: Order Comment: Reaso n for Exam Iron deficiency Reason for Exam High blood triglycerides Performed By: #### C BC #### [facility] [address] [place] [address] #### RPR W RFX #### [facility] , Creatinine [Mass/Vol] 0.69 mg/dL Normal 0.60-1.20 [facility] Comment on above: Order Comment: Reaso n for Exam Iron deficiency Reason for Exam High blood triglycerides Performed By: #### C BC #### [facility] [address] [place] [address] [place] #### RPR W RFX #### [facility] , GFR/1.73 sq M.predicted MDRD (S/P/Bld) [Vol rate/Area] mL/min/{1.73_m2} Normal [facility] Comment on above: Order Comment: Reaso n for Exam Iron deficiency Reason for Exam High blood triglycerides Performed By: #### C BC #### [facility] [address] [place] [address] [place] #### RPR W RFX #### [facility] , Globulin (S) [Mass/Vol] 2.9 g/dL Normal [facility] Comment on above: Order Comment: Reaso n for Exam Iron deficiency Reason for Exam High blood triglycerides Performed By: #### C BC #### [place] [address] [place] #### RPR W RFX #### [facility] , Glucose [Mass/Vol] 103 mg/dL High 70-100 [facility] Comment on above: Order Comment: Reaso n for Exam Iron deficiency Reason for Exam High blood triglycerides Result Comment: [place] Glucose Reference Range is dependent on time and content of last meal. Glucose of more than 200 mg/dL in a nonstressed, ambulatory subject supports the diagnosis of Diabetes Mellitus. ADA recommended reference range Performed By: #### C BC #### [place] [address] [place] #### RPR W RFX #### [facility] , Potassium [Moles/Vol] 4.1 mmol/L Normal 3.5-5.1 [facility] Comment on above: Order Comment: Reaso n for Exam Iron deficiency Reason for Exam High blood triglycerides Performed By: #### C BC #### [facility] [address] [place] [address] [place] #### RPR W RFX #### [facility] , Protein [Mass/Vol] 7.0 g/dL Normal 6.4-8.9 [facility] Comment on above: Order Comment: Reaso n for Exam Iron deficiency Reason for Exam High blood triglycerides Performed By: #### C BC #### [facility] [address] [place] [address] [place] #### RPR W RFX #### [facility] , Sodium [Moles/Vol] 139 mmol/L Normal 136-145 [facility] Comment on above: Order Comment: Reaso n for Exam Iron deficiency Reason for Exam High blood triglycerides Performed By: #### C BC #### [address] [address] [place] #### RPR W RFX #### [facility] , Urea nitrogen [Mass/Vol] 12 mg/dL Normal 7-25 [facility] Comment on above: Order Comment: Reaso n for Exam Iron deficiency Reason for Exam High blood triglycerides Performed By: #### C BC #### [facility] [address] [place] [address] #### RPR W RFX #### [facility] , Iron and TIBC Profileon 03-19 % Iron Saturation 8.6 % Low 20-50 [facility] Comment on above: Order Comment: Reaso n for Exam Iron deficiency Reason for Exam High blood triglycerides Performed By: #### C BC #### [facility] [address] [place] [address] #### RPR W RFX #### [facility] , Iron [Mass/Vol] 28 ug/dL Low 50-212 [facility] Comment on above: Order Comment: Reaso n for Exam Iron deficiency Reason for Exam High blood triglycerides Performed By: #### C BC #### [facility] [address] [place] [address] #### RPR W RFX #### [facility] , Total Iron Binding Capacity 326 ug/dL Normal 255-450 [facility] Comment on above: Order Comment: Reaso n for Exam Iron deficiency Reason for Exam High blood triglycerides Performed By: #### C BC #### [facility] [address] [place] [address] #### RPR W RFX #### [facility] , Transferrin [Mass/Vol] 233 mg/dL Normal 203-[address] [facility] Comment on above: Order Comment: Reaso n for Exam Iron deficiency Reason for Exam High blood triglycerides Performed By: #### C BC #### [facility] [address] [place] [address] [place] #### RPR W RFX #### [facility] , Lipid Panelon 04-15-2023 Cholesterol [Mass/Vol] 131 mg/dL Low 140-200 [facility] Comment on above: Order Comment: Reaso n for Exam Iron deficiency Reason for Exam High blood triglycerides Result Comment: Chol less than 200 mg/dl low risk Chol 201-239 mg/dl borderline risk Chol 240 mg/dl and greater high risk Performed By: #### C BC #### [place] [address] [place] #### RPR W RFX #### [facility] , Cholesterol in HDL [Mass/Vol] 39 mg/dL Normal 23-92 [facility] Comment on above: Order Comment: Reaso n for Exam Iron deficiency Reason for Exam High blood triglycerides Result Comment: HDL CHOL ATP-III CLASSIFICATION Cardiovascular Risk HDL > or equal to 60 mg/dL LOW HDL < 40 mg/dL HIGH Performed By: #### C BC #### [address] #### RPR W RFX #### [facility] , Cholesterol.total/Chol esterol in HDL [Mass ratio] 3.4 {ratio} Normal <5.0 [facility] Comment on above: Order Comment: Reaso n for Exam Iron deficiency Reason for Exam High blood triglycerides Result Comment: PERF ORMED BY: [place] [address] PATHOLOGIST INTERVENTIONAL SALE CONSULTANT ALLA OROZCO M.D. Performed By: #### C BC #### [facility] [address] [place] [address] [place] #### RPR W RFX #### [facility] , LDL Cholesterol,Calculated 58 mg/dL Normal 0-100 [facility] Comment on above: Order Comment: Reaso n for Exam Iron deficiency Reason for Exam High blood triglycerides Result Comment: LDL ATP III CLASSIFICATION LDL less than 100 mg/dL Optimal LDL 100-129 mg/dL Near or above optimal LDL 130-159 mg/dL Borderline high LDL 160-189 mg/dL High LDL greater than 189 mg/dL Very high Performed By: #### C BC #### [facility] [address] [place] [address] #### RPR W RFX #### [facility] , Triglyceride w/Reflex 170 mg/dL High 0-149 [facility] Comment on above: Order Comment: [...] method. Performed By: #### C BC #### [facility] [address] [place] [address] #### RPR W RFX #### [facility] , VLDL CHOLESTEROL 34 mg/dL Normal [facility] Comment on above: Order Comment: Reaso n for Exam Iron deficiency Reason for Exam High blood triglycerides Performed By: #### C BC #### [address] #### RPR W RFX #### [facility] , A1C with Estimated Average G eliseon 03-17-2023 Glucose [Mass/Vol] 114 mg/dL Normal [facility] Comment on above: Order Comment: Name Collection Type:: Clean-Voided Midstream Result Comment: PERF ORMED BY: [place] [address] PATHOLOGIST INTERVENTIONAL SALE CONSULTANT ALLA OROZCO M.D. Performed By: #### [facility] [place] #### [address] Glucose mean value [Mass/vol ume] in Blood Estimated from glycated hemoglobinOrdered By: Nataly Toure on 03-17-2023 Average glucose Estimated from glycated hemoglobin (Bld) [Mass/Vol] 114 mg/dL [facility] Hemoglobin A1c percentageOrd ered By: Nataly Toure on 03-17-2023 HbA1c (Bld) [Mass fraction] 5.6 % Normal 4.3-5.6 [facility] Comment on above: Increased risk for d iabetes: 5.7 - 6.4diabetes: >6.4glycemic control for adults with diabetes: <7.0 Order Comment: Name Collection Type:: Clean-Voided Midstream Result Comment: Incr eased risk for diabetes: 5.7 - 6.4 diabetes: >6.4 glycemic control for adults with diabetes: <7.0 Performed By: #### [facility] [place] #### [address] Insulinon 03-17-2023 Insulin 105.0 u[iU]/mL High 2.6-24.9 [facility] Comment on above: Order Comment: Name Collection Type:: Clean-Voided Midstream Result Comment: Perf ormed at: [facility] [address] [id number] [place] Worker: Sam Lopez PhD, Phone: [phone] PERFORMED BY: [place] [address] PATHOLOGIST INTERVENTIONAL SALE CONSULTANT ALLA OROZCO M.D. Performed By: #### [facility] [place] #### [address] Alanine aminotransferase [En zymatic activity/volume] in Serum or PlasmaOrdered By: Nataly Toure on 03-04-2023 ALT [Catalytic activity/Vol] 12 U/L Normal 7-52 [facility] Comment on above: Order Comment: Reaso n for Exam Obesity, unspecified;High blood triglycerides Reason for Exam Iron deficiency Reason for Exam High blood triglycerides Reason for Exam Hypothyroidism, unspecified type Performed By: #### C BC #### [address] #### RPR W RFX #### [facility] , Albumin [Mass/volume] in Ser um or Plasma by Bromocresol green (BCG) dye binding methoOrdered By: Nataly Toure on 03-04-2023 Albumin BCG dye [Mass/Vol] 3.7 g/dL 3.5-5.7 [facility] Alkaline phosphatase [Enzyma tic activity/volume] in Serum or PlasmaOrdered By: Nataly Toure on 03-04-2023 ALP [Catalytic activity/Vol] 100 U/L Normal 34-104 [facility] Comment on above: Order Comment: Reaso n for Exam Obesity, unspecified;High blood triglycerides Reason for Exam Iron deficiency Reason for Exam High blood triglycerides Reason for Exam Hypothyroidism, unspecified type Performed By: #### C BC #### [facility] [address] [place] [address] [place] #### RPR W RFX #### [facility] , Aspartate aminotransferase [ Enzymatic activity/volume] in Serum or PlasmaOrdered By: Nataly Toure on 03-04-2023 AST [Catalytic activity/Vol] 12 U/L Low 13-39 [facility] Comment on above: Order Comment: Reaso n for Exam Obesity, unspecified;High blood triglycerides Reason for Exam Iron deficiency Reason for Exam High blood triglycerides Reason for Exam Hypothyroidism, unspecified type Performed By: #### C BC #### [facility] [address] [place] [address] [place] #### RPR W RFX #### [facility] , Automated basophil %Ordered By: Nataly Toure on 03-04-2023 Basophils/100 WBC (Bld) 1.0 % Normal . [facility] Comment on above: Order Comment: Reaso n for Exam Obesity, unspecified;High blood triglycerides Performed By: #### C BC #### [facility] [address] [place] [address] [place] #### RPR W RFX #### [facility] , Automated basophil countOrde red By: Nataly Toure on 03-04-2023 Basophils (Bld) [#/Vol] 0.1 10*3/uL Normal 0.0-0.2 [facility] Comment on above: Order Comment: Reaso n for Exam Obesity, unspecified;High blood triglycerides Result Comment: PERF ORMED BY: [place] [address] PATHOLOGIST INTERVENTIONAL SALE CONSULTANT ALLA OROZCO M.D. Performed By: #### C BC #### [facility] [address] [place] [address] [place] #### RPR W RFX #### [facility] , Automated blood monocyte cou ntOrdered By: Nataly Toure on 03-04-2023 Monocytes (Bld) [#/Vol] 0.6 10*3/uL Normal 0.0-0.8 [facility] Comment on above: Order Comment: Reaso n for Exam Obesity, unspecified;High blood triglycerides Performed By: #### C BC #### [facility] [address] [place] [address] [place] #### RPR W RFX #### [facility] , Automated eosinophil %Ordere d By: Nataly Toure on 03-04-2023 Eosinophils/100 WBC (Bld) 2.0 % Normal . [facility] Comment on above: Order Comment: Reaso n for Exam Obesity, unspecified;High blood triglycerides Performed By: #### C BC #### [place] [address] [place] #### RPR W RFX #### [facility] , Automated eosinophil countOr dered By: Nataly Toure on 03-04-2023 Eosinophils (Bld) [#/Vol] 0.1 10*3/uL Normal 0.0-0.45 [facility] Comment on above: Order Comment: Reaso n for Exam Obesity, unspecified;High blood triglycerides Performed By: #### C BC #### [facility] [address] [place] [address] [place] #### RPR W RFX #### [facility] , Automated monocyte %Ordered By: Nataly Toure on 03-04-2023 Monocytes/100 WBC (Bld) 9.2 % Normal . [facility] Comment on above: Order Comment: Reaso n for Exam Obesity, unspecified;High blood triglycerides Performed By: #### C BC #### [facility] [address] [place] [address] [place] #### RPR W RFX #### [facility] , Automated neutrophil %Ordere d By: Natalyharlan Toure on 03-04-2023 Neutrophils/100 WBC (Bld) 58.4 % Normal . [facility] Comment on above: Order Comment: Reaso n for Exam Obesity, unspecified;High blood triglycerides Performed By: #### C BC #### [facility] [address] [place] [address] [place] #### RPR W RFX #### [facility] , Bilirubin.total [Mass/volume ] in Serum or PlasmaOrdered By: Nataly Toure on 03-04-2023 Bilirubin [Mass/Vol] 0.3 mg/dL Normal 0.3-1.0 [facility] Comment on above: Order Comment: Reaso n for Exam Obesity, unspecified;High blood triglycerides Reason for Exam Iron deficiency Reason for Exam High blood triglycerides Reason for Exam Hypothyroidism, unspecified type Performed By: #### C BC #### [facility] [address] [place] [address] #### RPR W RFX #### [facility] , Calcium [Mass/volume] in Ser um or PlasmaOrdered By: Nataly Toure on 03-04-2023 Calcium [Mass/Vol] 8.9 mg/dL Normal 8.6-10.3 [facility] Comment on above: Order Comment: Reaso n for Exam Obesity, unspecified;High blood triglycerides Reason for Exam Iron deficiency Reason for Exam High blood triglycerides Reason for Exam Hypothyroidism, unspecified type Performed By: #### C BC #### [facility] [address] [place] [address] [place] #### RPR W RFX #### [facility] , Carbon dioxide, total [Moles /volume] in Serum or PlasmaOrdered By: Nataly Toure on 03-04-2023 CO2 [Moles/Vol] 26.6 mmol/L Normal 21.0-31.0 [facility] Comment on above: Order Comment: Reaso n for Exam Obesity, unspecified;High blood triglycerides Reason for Exam Iron deficiency Reason for Exam High blood triglycerides Reason for Exam Hypothyroidism, unspecified type Performed By: #### C BC #### [facility] [address] [place] [address] [place] #### RPR W RFX #### [facility] , Chloride [Moles/volume] in S rosa or PlasmaOrdered By: Nataly Toure on 03-04-2023 Chloride [Moles/Vol] 105 mmol/L Normal 98-107 [facility] Comment on above: Order Comment: Reaso n for Exam Obesity, unspecified;High blood triglycerides Reason for Exam Iron deficiency Reason for Exam High blood triglycerides Reason for Exam Hypothyroidism, unspecified type Performed By: #### C BC #### [facility] [address] [place] [address] [place] #### RPR W RFX #### [facility] , Cholesterol [Mass/volume] in Serum or PlasmaOrdered By: Nataly Toure on 03-04-2023 Cholesterol [Mass/Vol] 231 mg/dL High 140-200 [facility] Comment on above: Chol less than 200 [...] risk Performed By: #### C BC #### [facility] [address] [place] [address] [place] #### RPR W RFX #### [facility] , Cholesterol in LDL Calc [Mas s/Vol]Ordered By: Nataly Toure on 03-04-2023 Cholesterol in LDL [Mass/Vol] [facility] Comment on above: Test not performed Cholesterol in LDL [Mass/vol ume] in Serum or PlasmaOrdered By: Nataly Toure on 03-04-2023 Cholesterol in LDL [Mass/Vol] 81 mg/dL 0-100 [facility] Comment on above: LDL ATP III CLASSIFI CATIONLDL less than 100 mg/dL OptimalLDL 100-129 mg/dL Near or above optimalLDL 130-159 mg/dL Borderline highLDL 160-189 mg/dL HighLDL greater than 189 mg/dL Very high Cholesterol in VLDL Calc [Ma ss/Vol]Ordered By: Nataly Toure on 03-04-2023 Cholesterol in VLDL [Mass/Vol] 172 mg/dL [facility] Complete Blood Count Auto Di ffon 03-04-2023 Mean Corpuscular HGB Conc 32.7 g/dL Normal 32.0-35.0 [facility] Comment on above: Order Comment: Reaso n for Exam Obesity, unspecified;High blood triglycerides Performed By: #### C BC #### [facility] [address] [place] [address] [place] #### RPR W RFX #### [facility] , NRBC% 0.1 /100{WBC} Normal 0-0.5 [facility] Comment on above: Order Comment: Reaso n for Exam Obesity, unspecified;High blood triglycerides Performed By: #### C BC #### [facility] [address] [place] [address] [place] #### RPR W RFX #### [facility] , Comprehensive Metabolic Pane marco 03-04-2023 Albumin [Mass/Vol] 3.7 g/dL Normal 3.5-5.7 [facility] Comment on above: Order Comment: Reaso n for Exam Obesity, unspecified;High blood triglycerides Reason for Exam Iron deficiency Reason for Exam High blood triglycerides Reason for Exam Hypothyroidism, unspecified type Performed By: #### C BC #### [facility] [address] [place] [address] [place] #### RPR W RFX #### [facility] , GFR/1.73 sq M.predicted MDRD (S/P/Bld) [Vol rate/Area] mL/min/{1.73_m2} Normal [facility] Comment on above: Order Comment: Reaso n for Exam Obesity, unspecified;High blood triglycerides Reason for Exam Iron deficiency Reason for Exam High blood triglycerides Reason for Exam Hypothyroidism, unspecified type Performed By: #### C BC #### [facility] [address] [place] [address] #### RPR W RFX #### [facility] , Creatinine [Mass/volume] in Serum or PlasmaOrdered By: Nataly Toure on 03-04-2023 Creatinine [Mass/Vol] 0.72 mg/dL Normal 0.60-1.20 [facility] Comment on above: Order Comment: Reaso n for Exam Obesity, unspecified;High blood triglycerides Reason for Exam Iron deficiency Reason for Exam High blood triglycerides Reason for Exam Hypothyroidism, unspecified type Performed By: #### C BC #### [address] #### RPR W RFX #### [facility] , Erythrocyte distribution wid th [Ratio] by Automated countOrdered By: Nataly Toure on 03-04-2023 Erythrocyte distribution width (RBC) [Ratio] 16.0 % High 11.9-15.3 [facility] Comment on above: Order Comment: Reaso n for Exam Obesity, unspecified;High blood triglycerides Performed By: #### C BC #### [address] #### RPR W RFX #### [facility] , Erythrocytes [#/volume] in B lood by Automated countOrdered By: Nataly Toure on 03-04-2023 RBC (Bld) [#/Vol] 4.52 10*6/uL Normal 3.60-5.00 [facility] Comment on above: Order Comment: Reaso n for Exam Obesity, unspecified;High blood triglycerides Performed By: #### C BC #### [place] [address] [place] #### RPR W RFX #### [facility] , Ferritin [Mass/volume] in Se rum or PlasmaOrdered By: Nataly Toure on 03-04-2023 Ferritin [Mass/Vol] 18.9 ng/mL Normal 11.0-306.8 [facility] Comment on above: Order Comment: Reaso n for Exam Obesity, unspecified;High blood triglycerides Reason for Exam Iron deficiency Reason for Exam High blood triglycerides Reason for Exam Hypothyroidism, unspecified type Performed By: #### C BC #### [place] [address] [place] #### RPR W RFX #### [facility] , Glucose [Mass/volume] in Ser um or PlasmaOrdered By: Nataly Toure on 03-04-2023 Glucose [Mass/Vol] 95 mg/dL Normal 70-100 [facility] Comment on above: ADA recommended refe rence [...] for Exam Hypothyroidism, unspecified type Result Comment: [place] om Glucose Reference Range is dependent on time and content of last meal. Glucose of more than 200 mg/dL in a nonstressed, ambulatory subject supports the diagnosis of Diabetes Mellitus. ADA recommended reference range Performed By: #### C BC #### [place] [address] [place] #### RPR W RFX #### [facility] , Hematocrit [Volume Fraction] of Blood by Automated countOrdered By: Nataly Toure on 03-04-2023 Hematocrit (Bld) [Volume fraction] 34.7 % Normal 34.0-46.4 [facility] Comment on above: Order Comment: Reaso n for Exam Obesity, unspecified;High blood triglycerides Performed By: #### C BC #### [place] [address] [place] #### RPR W RFX #### [facility] , Hemoglobin [Mass/volume] in BloodOrdered By: Nataly Tejal on 03-04-2023 Hemoglobin (Bld) [Mass/Vol] 11.3 g/dL Low 11.8-15.4 [facility] Comment on above: Order Comment: Reaso n for Exam Obesity, unspecified;High blood triglycerides Performed By: #### C BC #### [place] [address] [place] #### RPR W RFX #### [facility] , Iron [Mass/volume] in Serum or PlasmaOrdered By: Natalyharlan Toure on 03-04-2023 Iron [Mass/Vol] 43 ug/dL Low 50-212 [facility] Comment on above: Order Comment: Reaso n for Exam Obesity, unspecified;High blood triglycerides Reason for Exam Iron deficiency Reason for Exam High blood triglycerides Reason for Exam Hypothyroidism, unspecified type Performed By: #### C BC #### [place] [address] [place] #### RPR W RFX #### [facility] , Iron and TIBC Profileon 02-15 % Iron Saturation 11.5 % Low 20-50 [facility] Comment on above: Order Comment: Reaso n for Exam Obesity, unspecified;High blood triglycerides Reason for Exam Iron deficiency Reason for Exam High blood triglycerides Reason for Exam Hypothyroidism, unspecified type Performed By: #### C BC #### [place] [address] [place] #### RPR W RFX #### [facility] , Total Iron Binding Capacity 375 ug/dL Normal 255-450 [facility] Comment on above: Order Comment: Reaso n for Exam Obesity, unspecified;High blood triglycerides Reason for Exam Iron deficiency Reason for Exam High blood triglycerides Reason for Exam Hypothyroidism, unspecified type Performed By: #### C BC #### [place] [address] [place] #### RPR W RFX #### [facility] , Iron binding capacity [Mass/ volume] in Serum or PlasmaOrdered By: Nataly Toure on 03-04-2023 Iron binding capacity [Mass/Vol] 375 ug/dL 255-450 [facility] Iron saturation [Mass Fracti on] in Serum or PlasmaOrdered By: Nataly Toure on 03-04-2023 Iron saturation [Mass fraction] 11.5 % 20-50 [facility] LDL Cholesterol Measuredon 0 03-04-2023 LDL Cholesterol Measured 81 mg/dL Normal 0-100 [facility] Comment on above: Order Comment: [...] high Performed By: #### C USTB #### [facility] [address] Leukocytes [#/volume] correc kee for nucleated erythrocytes in Blood by Automated counOrdered By: Nataly Toure on 03-04-2023 WBC corrected for nucl RBC Auto (Bld) [#/Vol] 6.2 10*3/uL 3.8-11.6 [facility] Leukocytes [#/volume] in Blo od by Automated countOrdered By: Nataly Toure on 03-04-2023 WBC (Bld) [#/Vol] 6.2 10*3/uL Normal 3.8-11.6 [facility] Comment on above: Order Comment: Reaso n for Exam Obesity, unspecified;High blood triglycerides Performed By: #### C BC #### [facility] [address] [place] [address] [place] #### RPR W RFX #### [facility] , Lipid Panelon 03-04-2023 LDL Cholesterol,Calculated Not performed Normal 0-100 [facility] Comment on above: Order Comment: Reaso n for Exam Obesity, unspecified;High blood triglycerides Reason for Exam Iron deficiency Reason for Exam High blood triglycerides Reason for Exam Hypothyroidism, unspecified type Performed By: #### C BC #### [facility] [address] [place] [address] [place] #### RPR W RFX #### [facility] , Triglyceride w/Reflex 863 mg/dL High 0-149 [facility] Comment on above: Order Comment: [...] resulted. Performed By: #### C BC #### [facility] [address] [place] [address] [place] #### RPR W RFX #### [facility] , VLDL CHOLESTEROL 172 mg/dL Normal [facility] Comment on above: Order Comment: Reaso n for Exam Obesity, unspecified;High blood triglycerides Reason for Exam Iron deficiency Reason for Exam High blood triglycerides Reason for Exam Hypothyroidism, unspecified type Performed By: #### C BC #### [facility] [address] [place] [address] #### RPR W RFX #### [facility] , Lymphocytes [#/volume] in Bl ood by Automated countOrdered By: Nataly Toure on 03-04-2023 Lymphocytes (Bld) [#/Vol] 1.8 10*3/uL Normal 1.00-4.8 [facility] Comment on above: Order Comment: Reaso n for Exam Obesity, unspecified;High blood triglycerides Performed By: #### C BC #### [facility] [address] [place] [address] [place] #### RPR W RFX #### [facility] , Lymphocytes/100 leukocytes i n Blood by Automated countOrdered By: Nataly Toure on 03-04-2023 Lymphocytes/100 WBC (Bld) 29.4 % Normal . [facility] Comment on above: Order Comment: Reaso n for Exam Obesity, unspecified;High blood triglycerides Performed By: #### C BC #### [place] [address] [place] #### RPR W RFX #### [facility] , MCH [Entitic mass] by Automa kee countOrdered By: Nataly Toure on 03-04-2023 MCH (RBC) [Entitic mass] 25.1 pg Normal 24.7-34.3 [facility] Comment on above: Order Comment: Reaso n for Exam Obesity, unspecified;High blood triglycerides Performed By: #### C BC #### [address] #### RPR W RFX #### [facility] , MCHC Auto (RBC) [Mass/Vol]Or dered By: Nataly Toure on 03-04-2023 MCHC (RBC) [Mass/Vol] 32.7 g/dL 32.0-35.0 [facility] MCV [Entitic volume] by Auto mated countOrdered By: Nataly Toure on 03-04-2023 MCV (RBC) [Entitic vol] 76.7 fL Low 80-100 [facility] Comment on above: Order Comment: Reaso n for Exam Obesity, unspecified;High blood triglycerides Performed By: #### C BC #### [place] [address] [place] #### RPR W RFX #### [facility] , Neutrophils [#/volume] in Bl ood by Automated countOrdered By: Nataly Toure on 03-04-2023 Neutrophils (Bld) [#/Vol] 3.6 10*3/uL Normal 1.8-7.7 [facility] Comment on above: Order Comment: Reaso n for Exam Obesity, unspecified;High blood triglycerides Performed By: #### C BC #### [facility] [address] [place] [address] #### RPR W RFX #### [facility] , No Panel InformationOrdered By: Nataly Toure on 03-04-2023 Estimated GFR (CKD-EPI) > 60.0 mL/Min [facility] Creatinine Clearance (Chem N/A [facility] Nucleated erythrocytes [Pres ence] in Blood by Automated countOrdered By: Nataly Toure on 03-04-2023 Nucleated RBC Auto Ql (Bld) 0.1 /100{WBC} 0-0.5 [facility] Platelet mean volume [Entiti c volume] in Blood by Automated countOrdered By: Nataly Toure on 03-04-2023 Platelet mean volume (Bld) [Entitic vol] 9.8 fL Normal 6.3-10.7 [facility] Comment on above: Order Comment: Reaso n for Exam Obesity, unspecified;High blood triglycerides Performed By: #### C BC #### [facility] [address] [place] [address] #### RPR W RFX #### [facility] , Platelets [#/volume] in Bloo d by Automated countOrdered By: Nataly Toure on 03-04-2023 Platelets (Bld) [#/Vol] 217 10*3/uL Normal 150-450 [facility] Comment on above: Order Comment: Reaso n for Exam Obesity, unspecified;High blood triglycerides Performed By: #### C BC #### [facility] [address] [place] [address] [place] #### RPR W RFX #### [facility] , Potassium [Moles/volume] in Serum or PlasmaOrdered By: Nataly Toure on 03-04-2023 Potassium [Moles/Vol] 3.8 mmol/L Normal 3.5-5.1 [facility] Comment on above: Order Comment: Reaso n for Exam Obesity, unspecified;High blood triglycerides Reason for Exam Iron deficiency Reason for Exam High blood triglycerides Reason for Exam Hypothyroidism, unspecified type Performed By: #### C BC #### [facility] [address] [place] [address] #### RPR W RFX #### [facility] , Protein [Mass/volume] in Ser um or PlasmaOrdered By: Nataly Toure on 03-04-2023 Protein [Mass/Vol] 6.4 g/dL Normal 6.4-8.9 [facility] Comment on above: Order Comment: Reaso n for Exam Obesity, unspecified;High blood triglycerides Reason for Exam Iron deficiency Reason for Exam High blood triglycerides Reason for Exam Hypothyroidism, unspecified type Performed By: #### C BC #### [facility] [address] [place] [address] #### RPR W RFX #### [facility] , Serum globulin measurement b y calculation (mass/volume)Ordered By: Nataly Toure on 03-04-2023 Globulin (S) [Mass/Vol] 2.7 g/dL [facility] Comment on above: Order Comment: Reaso n for Exam Obesity, unspecified;High blood triglycerides Reason for Exam Iron deficiency Reason for Exam High blood triglycerides Reason for Exam Hypothyroidism, unspecified type Performed By: #### C BC #### [facility] [address] [place] [address] #### RPR W RFX #### [facility] , Serum or plasma albumin/glob ulin mass ratioOrdered By: Nataly Toure on 03-04-2023 Albumin/Globulin [Mass ratio] 1.4 {ratio} [facility] Comment on above: Order Comment: Reaso n for Exam Obesity, unspecified;High blood triglycerides Reason for Exam Iron deficiency Reason for Exam High blood triglycerides Reason for Exam Hypothyroidism, unspecified type Performed By: #### C BC #### [facility] [address] [place] [address] [place] #### RPR W RFX #### [facility] , Serum or plasma anion gap de terminationOrdered By: Nataly Toure on 01-18-2024 Anion gap [Moles/Vol] 11.2 mmol/L Normal 6.0-15.0 [facility] Comment on above: Order Comment: Reaso n for Exam Obesity, unspecified;High blood triglycerides Reason for Exam Iron deficiency Reason for Exam High blood triglycerides Reason for Exam Hypothyroidism, unspecified type Performed By: #### C BC #### [facility] [address] [place] [address] #### RPR W RFX #### [facility] , Serum or plasma high density lipoprotein (HDL) cholesterol measurementOrdered By: Nataly Toure on 03-04-2023 Cholesterol in HDL [Mass/Vol] 35 mg/dL Normal 23-92 [facility] Comment on above: HDL CHOL ATP-III [...] HIGH Performed By: #### C BC #### [facility] [address] [place] [address] [place] #### RPR W RFX #### [facility] , Serum or plasma total choles terol/high density lipoprotein (HDL) cholesterol mass ratOrdered By: Nataly Toure on 03-04-2023 Cholesterol.total/Chol esterol in HDL [Mass ratio] 6.6 {ratio} Normal <5.0 [facility] Comment on above: Order Comment: Reaso n for Exam Obesity, unspecified;High blood triglycerides Reason for Exam Iron deficiency Reason for Exam High blood triglycerides Reason for Exam Hypothyroidism, unspecified type Performed By: #### C BC #### [facility] [address] [place] [address] [place] #### RPR W RFX #### [facility] , Sodium [Moles/volume] in Ser um or PlasmaOrdered By: Nataly Toure on 03-04-2023 Sodium [Moles/Vol] 139 mmol/L Normal 136-145 [facility] Comment on above: Order Comment: Reaso n for Exam Obesity, unspecified;High blood triglycerides Reason for Exam Iron deficiency Reason for Exam High blood triglycerides Reason for Exam Hypothyroidism, unspecified type Performed By: #### C BC #### [facility] [address] [place] [address] #### RPR W RFX #### [facility] , Thyroid Stim Hormone w/Rflxo n 03-04-2023 Thyroid Stim Hormone w/Rflx 1.50 u[iU]/mL Normal 0.45-5.33 [facility] Comment on above: Order Comment: Reaso n for Exam Obesity, unspecified;High blood triglycerides Reason for Exam Iron deficiency Reason for Exam High blood triglycerides Reason for Exam Hypothyroidism, unspecified type Result Comment: PERF ORMED BY: [place] [address] PATHOLOGIST INTER[employer] S[employer] CONSULTANT ALLA OROZCO M.D. Performed By: #### C USTB #### [facility] [address] [place] [address] Thyrotropin [Units/volume] i n Serum or PlasmaOrdered By: Nataly Toure on 03-04-2023 TSH Qn 1.50 m[IU]/L 0.45-5.33 [facility] Transferrin [Mass/volume] in Serum or PlasmaOrdered By: Nataly Toure on 03-04-2023 Transferrin [Mass/Vol] 268 mg/dL Normal 203-362 [facility] Comment on above: Order Comment: Reaso n for Exam Obesity, unspecified;High blood triglycerides Reason for Exam Iron deficiency Reason for Exam High blood triglycerides Reason for Exam Hypothyroidism, unspecified type Performed By: #### C BC #### [facility] [address] [place] [address] [place] #### RPR W RFX #### [facility] , Triglyceride [Mass/volume] i n Serum or PlasmaOrdered By: Nataly Toure on 03-04-2023 Triglyceride [Mass/Vol] 863 mg/dL 0-149 [facility] Comment on above: If the triglyceride [...] Urea nitrogen [Mass/Vol] 11 mg/dL Normal 7-25 [facility] Comment on above: Order Comment: Reaso n for Exam Obesity, unspecified;High blood triglycerides Reason for Exam Iron deficiency Reason for Exam High blood triglycerides Reason for Exam Hypothyroidism, unspecified type Performed By: #### C BC #### [facility] [address] [place] [address] #### RPR W RFX #### [facility] , Vitamin B12 ser/plasOrdered By: Nataly Toure on 03-04-2023 Cobalamin (Vitamin B12) [Mass/Vol] 303 pg/mL Normal 180-914 [facility] Comment on above: Order Comment: Reaso n for Exam Obesity, unspecified;High blood triglycerides Reason for Exam Iron deficiency Reason for Exam High blood triglycerides Reason for Exam Hypothyroidism, unspecified type Performed By: #### C USTB #### [facility] [address] [place] [address] Automated basophil %Ordered By: EDE WAY on 02-13-2023 Basophils/100 WBC (Bld) 0.7 % Normal . [facility] Comment on above: Performed By: #### C BC #### [facility] [address] [place] [address] [place] #### RPR W RFX #### [facility] , Automated basophil countOrde red By: EDE WAY on 02-13-2023 Basophils (Bld) [#/Vol] 0.1 10*3/uL Normal 0.0-0.2 [facility] Comment on above: Result Comment: PERF ORMED BY: [place] [address] PATHOLOGIST INTERVENT[employer] S[employer] CONSULTANT ALLA OROZCO M.D. Performed By: #### C BC #### [place] [address] [place] #### RPR W RFX #### [facility] , Automated blood monocyte cou ntOrdered By: EDE WAY on 02-13-2023 Monocytes (Bld) [#/Vol] 0.8 10*3/uL Normal 0.0-0.8 [facility] Comment on above: Performed By: #### C BC #### [place] [address] [place] #### RPR W RFX #### [facility] , Automated eosinophil %Ordere d By: EDE WAY on 02-13-2023 Eosinophils/100 WBC (Bld) 0.6 % Normal . [facility] Comment on above: Performed By: #### C BC #### [place] [address] [place] #### RPR W RFX #### [facility] , Automated eosinophil countOr dered By: EDE WAY on 02-13-2023 Eosinophils (Bld) [#/Vol] 0.1 10*3/uL Normal 0.0-0.45 [facility] Comment on above: Performed By: #### C BC #### [place] [address] [place] #### RPR W RFX #### [facility] , Automated erythrocytes count in urine sediment (number/area)Ordered By: EDE WAY on 02-13-2023 RBC Auto (Urine sed) [#/Area] Innumerable [HPF] 0-4 [facility] Automated leukocytes count i n urine sediment (number/area)Ordered By: EDE WAY on 02-13-2023 WBC Auto (Urine sed) [#/Area] 5-9 [HPF] 0-4 [facility] Automated monocyte %Ordered By: EDE WAY on 02-13-2023 Monocytes/100 WBC (Bld) 8.8 % Normal . [facility] Comment on above: Performed By: #### C BC #### [address] #### RPR W RFX #### [facility] , Automated neutrophil %Ordere d By: EDE WAY on 02-13-2023 Neutrophils/100 WBC (Bld) 73.7 % Normal . [facility] Comment on above: Performed By: #### C BC #### [address] #### RPR W RFX #### [facility] , Automated urine color determ inationOrdered By: EDE WAY on 02-13-2023 Color (U) [place] Critically abnormal Yellow [facility] Comment on above: Order Comment: Name Collection Type:: Voided Performed By: #### C USTB #### [address] Bilirubin Test strip Ql (U)O rdered By: EDE WAY on 02-13-2023 Bilirubin Ql (U) Negative Negative [facility] Complete Blood Count Auto Di ffon 02-13-2023 Mean Corpuscular HGB Conc 33.8 g/dL Normal 32.0-35.0 [facility] Comment on above: Performed By: #### C BC #### [place] [address] [place] #### RPR W RFX #### [facility] , NRBC% 0.1 /100{WBC} Normal 0-0.5 [facility] Comment on above: Performed By: #### C BC #### [place] [address] [place] #### RPR W RFX #### [facility] , Dipstick and Microscopicon 1 Appearance (U) Clear Normal Clear [facility] Comment on above: Order Comment: Name Collection Type:: Voided Performed By: #### C USTB #### [address] Bacteria,Urine None Seen Normal None Seen [facility] Comment on above: Order Comment: Name Collection Type:: Voided Performed By: #### C USTB #### [address] Bilirubin,Urine Negative Normal Negative [facility] Comment on above: Order Comment: Name Collection Type:: Voided Performed By: #### C USTB #### [address] Glucose Ql (U) Normal Normal Normal [facility] Comment on above: Order Comment: Name Collection Type:: Voided Performed By: #### C USTB #### [address] Hyaline Casts,Urine 0-8 Normal 0-8 [facility] Comment on above: Order Comment: Name Collection Type:: Voided Result Comment: PERF ORMED BY: [place] [address] PATHOLOGIST INTERVENT[employer] S[employer] CONSULTANT ALLA OROZCO M.D. Performed By: #### C USTB #### [address] Ketones Ql (U) Trace High Negative [facility] Comment on above: Order Comment: Name Collection Type:: Voided Performed By: #### C USTB #### [address] Leukocyte esterase Test strip Ql (U) 1+ High Negative [facility] Comment on above: Order Comment: Name Collection Type:: Voided Performed By: #### C USTB #### [address] Nitrite,Urine Negative Normal Negative [facility] Comment on above: Order Comment: Name Collection Type:: Voided Performed By: #### C USTB #### [place] [address] [place] Occult Blood,Urine 3+ High Negative [facility] Comment on above: Order Comment: Name Collection Type:: Voided Result Comment: PERF ORMED BY: [place] [address] PATHOLOGIST INTERVENTIONAL SALE CONSULTANT ALLA OROZCO M.D. Performed By: #### C USTB #### [address] RBC,Urine Innumerable High 0-4 [facility] Comment on above: Order Comment: Name Collection Type:: Voided Performed By: #### C USTB #### [address] Specificy [place],Urine 1.015 Normal 1.001-1.03 0 [facility] Comment on above: Order Comment: Name Collection Type:: Voided Performed By: #### C USTB #### [address] Squamous Epithelial Cell,Urine 3-4 High 0-2 [facility] Comment on above: Order Comment: Name Collection Type:: Voided Performed By: #### C USTB #### [address] Urobilinogen,Urine Normal Normal Normal [facility] Comment on above: Order Comment: Name Collection Type:: Voided Performed By: #### C USTB #### [address] WBC,Urine 5-9 High 0-4 [facility] Comment on above: Order Comment: Name Collection Type:: Voided Performed By: #### C USTB #### [address] Erythrocyte distribution wid th [Ratio] by Automated countOrdered By: EDE WAY on 02-13-2023 Erythrocyte distribution width (RBC) [Ratio] 16.2 % High 11.9-15.3 [facility] Comment on above: Performed By: #### C BC #### [address] #### RPR W RFX #### [facility] , Erythrocytes [#/volume] in B lood by Automated countOrdered By: EDE WAY on 02-13-2023 RBC (Bld) [#/Vol] 4.38 10*6/uL Normal 3.60-5.00 [facility] Comment on above: Performed By: #### C BC #### [facility] [address] [place] [address] [place] #### RPR W RFX #### [facility] , Hematocrit [Volume Fraction] of Blood by Automated countOrdered By: EDE WAY on 02-13-2023 Hematocrit (Bld) [Volume fraction] 33.2 % Low 34.0-46.4 [facility] Comment on above: Performed By: #### C BC #### [facility] [address] [place] [address] #### RPR W RFX #### [facility] , Hemoglobin [Mass/volume] in BloodOrdered By: EDE WAY on 02-13-2023 Hemoglobin (Bld) [Mass/Vol] 11.2 g/dL Low 11.8-15.4 [facility] Comment on above: Performed By: #### C BC #### [facility] [address] [place] [address] #### RPR W RFX #### [facility] , Ketones Auto test strip (U) [Mass/Vol]Ordered By: EDE WAY on 02-13-2023 Ketones (U) [Mass/Vol] Trace Negative [facility] Marco 02-13-2023 L ------ Specimen: [id number] Received: 02/16/23 Status: NICK Forbes Num: [id number] Spec Type: Surgical Subm Dr: EDE WAY MD Tissues: A Placenta - 3rd Trimester (Greater than 28 weeks) (PLACENTA) Procedures: HE/3, Gross/Micro L5 Age/ Patient Sex Location Account Attending Physician Rosette Alba [id number] EDE WAY MD SPEC NUM: [id number] RECD: 02/16/23 STATUS: NICK FORBES NUM: [id number] MAURY: 02/13/23- SUBM DR: EDE WAY MD ENTERED: 02/16/23 JANIA BARRERA: SPEC TYPE: Surgical DEPT: S ORDERED: HE/3, Gross/Micro [...] less than 5% of the cut surface. Title Insurance Examiner sections are submitted in 3 cassettes as follows: A1 - cord and central disc A2 - membranes and marginal disc Specimen: [id number] Received: 02/16/23 Status: NICK Forbes Num: [id number] Spec Type: Surgical Subm Dr: EDE WAY MD Tissues: A Placenta - 3rd Trimester (Greater than 28 weeks) (PLACENTA) Procedures: HE/3, Gross/Micro L5 Patient: Arun Albaperlita Brian [id number] (Continued) Specimen: [id number] Received: 02/16/23 (Continued) Gross Description (Continued) Signed (signature on file) Ishan Richardson MD 02/17/232199 Specimen: [id number] Received: 02/16/23 Status: NICK Marcus Num: [id number] Spec Type: Surgical Subm Dr: EDE WAY MD Tissues: A Placenta - 3rd Trimester (Greater than 28 weeks) (PLACENTA) Procedures: Becca LUU/[place] Patient: Rosette Alba [id number] (Continued) Specimen: [id number] Received: 02/16/23 (Continued) Gross Description (Continued) A3 - Central lesional area Microscopic Description Three H E slides reviewed. The microscopic examination confirms the diagnosis. CPT Codes 53731 Specimen: [id number] Received: 02/16/23 Status: FELIBERTOMann Forbes Num: [id number] Spec Type: Surgical Subm Dr: EDE WAY MD Tissues: A Placenta - 3rd Trimester (Greater than 28 weeks) (PLACENTA) Procedures: HE/Arianna, Gross/Micro L5 Patient: Rosette Alba [id number] (Continued) Signed (signature on file) Ishan Richardson MD 02/17/23 2200 Normal [facility] Laboratory - UrinalysisOrder ed By: EDE WAY on 02-13-2023 Hyaline casts LM Ql (Urine sed) 0-8 [LPF] 0-8 [facility] Leukocytes [#/volume] correc kee for nucleated erythrocytes in Blood by Automated counOrdered By: EDE WAY on 02-13-2023 WBC corrected for nucl RBC Auto (Bld) [#/Vol] 9.1 10*3/uL 3.8-11.6 [facility] Leukocytes [#/volume] in Blo od by Automated countOrdered By: EDE WAY on 02-13-2023 WBC (Bld) [#/Vol] 9.1 10*3/uL Normal 3.8-11.6 [facility] Comment on above: Performed By: #### C BC #### [facility] [address] [place] [address] [place] #### RPR W RFX #### [facility] , Lymphocytes [#/volume] in Bl ood by Automated countOrdered By: EDE WAY on 02-13-2023 Lymphocytes (Bld) [#/Vol] 1.5 10*3/uL Normal 1.00-4.8 [facility] Comment on above: Performed By: #### C BC #### [facility] [address] [place] [address] [place] #### RPR W RFX #### [facility] , Lymphocytes/100 leukocytes i n Blood by Automated countOrdered By: EDE WAY on 02-13-2023 Lymphocytes/100 WBC (Bld) 16.2 % Normal . [facility] Comment on above: Performed By: #### C BC #### [facility] [address] [place] [address] [place] #### RPR W RFX #### [facility] , MCH [Entitic mass] by Automa kee countOrdered By: EDE WAY on 02-13-2023 MCH (RBC) [Entitic mass] 25.6 pg Normal 24.7-34.3 [facility] Comment on above: Performed By: #### C BC #### [facility] [address] [place] [address] [place] #### RPR W RFX #### [facility] , MCHC Auto (RBC) [Mass/Vol]Or dered By: EDE WAY on 02-13-2023 MCHC (RBC) [Mass/Vol] 33.8 g/dL 32.0-35.0 [facility] MCV [Entitic volume] by Auto mated countOrdered By: EDE WAY on 02-13-2023 MCV (RBC) [Entitic vol] 75.7 fL Low 80-100 [facility] Comment on above: Performed By: #### C BC #### [address] #### RPR W RFX #### [facility] , Neutrophils [#/volume] in Bl ood by Automated countOrdered By: EDE WAY on 02-13-2023 Neutrophils (Bld) [#/Vol] 6.7 10*3/uL Normal 1.8-7.7 [facility] Comment on above: Performed By: #### C BC #### [facility] [address] [place] [address] [place] #### RPR W RFX #### [facility] , Nitrite Test strip Ql (U)Ord ered By: EDE WAY on 02-13-2023 Nitrite Ql (U) Negative Negative [facility] Nucleated erythrocytes [Pres ence] in Blood by Automated countOrdered By: EDE WAY on 02-13-2023 Nucleated RBC Auto Ql (Bld) 0.1 /100{WBC} 0-0.5 [facility] Platelet mean volume [Entiti c volume] in Blood by Automated countOrdered By: EDE WAY on 02-13-2023 Platelet mean volume (Bld) [Entitic vol] 8.5 fL Normal 6.3-10.7 [facility] Comment on above: Performed By: #### C BC #### [facility] [address] [place] [address] #### RPR W RFX #### [facility] , Platelets [#/volume] in Bloo d by Automated countOrdered By: EDE WAY on 02-13-2023 Platelets (Bld) [#/Vol] 178 10*3/uL Normal 150-450 [facility] Comment on above: Performed By: #### C BC #### [address] #### RPR W RFX #### [facility] , RPR w/rfx to Quant TP Abson 02-13-2023 RPR, Rfx Quant RPR Non-Reactive Normal Non Reactive [facility] Comment on above: Result Comment: Perf ormed at: CB - [facility] [address] [id number] [place] Worker: Sam Lopez PhD, Phone: [phone] PERFORMED BY: [place] [address] PATHOLOGIST INTERVENTIONAL SALE CONSULTANT ALLA OROZCO M.D. Performed By: #### C BC #### [address] #### RPR W RFX #### [facility] , Reagin Ab [Presence] in Seru m by RPROrdered By: EDE WAY on 02-13-2023 Reagin Ab RPR Ql (S) Non-Reactive Non Reactive [facility] Comment on above: Performed at: CB - [facility] [address] [id number] Director: Sam Lopez PhD, Phone: [phone] Specific gravity Auto test s trip (U) [Rel density]Ordered By: EDE WAY on 02-13-2023 Specific gravity (U) [Rel density] 1.015 1.001-1.03 0 [facility] Squamous epithelial cells de tection in urine sediment by light microscopyOrdered By: EDE WAY on 02-13-2023 Epithelial cells.squamous LM Ql (Urine sed) 3-4 [HPF] 0-2 [facility] Urine Cultureon 02-13-2023 Bacteria identified Cx Nom (U) No Growth 2 Days PERFORMED BY: [place] [address] PATHOLOGIST INTERVENTIONAL SALE CONSULTANT ALLA OROZCO M.D. Normal [facility] Comment on above: Performed By: #### C USTB #### [address] Urine bacteria detection by automated methodOrdered By: EDE WAY on 02-13-2023 Bacteria Auto Ql (U) None seen None Seen [facility] Urine clarity by refractomet ry automatedOrdered By: EDE WAY on 02-13-2023 Clarity Refractometry automated (U) Clear Clear [facility] Urine culture routineOrdered By: EDE WAY on 02-13-2023 Bacteria identified Cx Nom (U) No Growth 2 Days [facility] Urine glucose measurement by automated test strip (mass/volume)Ordered By: EDE WAY on 02-13-2023 Glucose Auto test strip (U) [Mass/Vol] Normal mg/dL Normal [facility] Urine hemoglobin detection b y automated test stripOrdered By: EDE WAY on 02-13-2023 Hemoglobin Auto test strip Ql (U) 3+ Negative [facility] Urine leukocyte esterase det ection by automated test stripOrdered By: EDE WAY on 02-13-2023 Leukocyte esterase Auto test strip Ql (U) 1+ Negative [facility] Urine pH measurement by auto mated test stripOrdered By: EDE WAY on 02-13-2023 pH (U) 6.5 [pH] Normal 5.0-9.0 [facility] Comment on above: Order Comment: Name Collection Type:: Voided Performed By: #### C USTB #### [facility] [address] Urine protein measurement by automated test strip (mass/volume)Ordered By: EDE WAY on 02-13-2023 Protein (U) [Mass/Vol] 30 mg/dL High Negative [facility] Comment on above: Order Comment: Name Collection Type:: Voided Performed By: #### C USTB #### [facility] [address] Urobilinogen Auto test strip (U) [Mass/Vol]Ordered By: EDE WAY on 02-13-2023 Urobilinogen (U) [Mass/Vol] Normal mg/dL Normal [facility] Amphetamine Screen Ql (U)Ord ered By: Radha Molina on 02-01-2023 Amphetamines Ql (U) Negative Negative [facility] Automated erythrocytes count in urine sediment (number/area)Ordered By: Radha Molina on 02-01-2023 RBC Auto (Urine sed) [#/Area] 3-4 [HPF] 0-4 [facility] Automated leukocytes count i n urine sediment (number/area)Ordered By: Radha Molina on 02-01-2023 WBC Auto (Urine sed) [#/Area] 10-19 [HPF] 0-4 [facility] Automated urine color determ inationOrdered By: Radha Molina on 02-01-2023 Color (U) Yellow Normal Yellow [facility] Comment on above: Order Comment: Name Collection Type:: Clean-Voided Midstream Performed By: #### C USTB #### [facility] [address] Automated urine sediment esteban cium oxalate crystal count by microscopy (number/high powOrdered By: Radha Molina on 02-01-2023 Calcium oxalate crystals LM.HPF (Urine sed) [#/Area] 3+ [HPF] [facility] Barbiturates [Presence] in U rine by Screen methodOrdered By: Radha Molina on 02-01-2023 Barbiturates Screen Ql (U) Negative Negative [facility] Benzodiazepines Screen Ql (U )Ordered By: Radha Molina on 02-01-2023 Benzodiazepines Ql (U) Negative Negative [facility] Benzoylecgonine [Presence] i n Urine by Screen methodOrdered By: Radhajere Molina on 02-01-2023 Benzoylecgonine Screen Ql (U) Negative Negative [facility] Bilirubin Test strip Ql (U)O rdered By: Radhajere Molina on 02-01-2023 Bilirubin Ql (U) Negative Negative [facility] Dipstick and Microscopicon 1 04-04-2022 Appearance (U) Cloudy Critically abnormal Clear [facility] Comment on above: Order Comment: Name Collection Type:: Clean-Voided Midstream Performed By: #### C USTB #### [address] Bacteria,Urine 1+ High None Seen [facility] Comment on above: Order Comment: Name Collection Type:: Clean-Voided Midstream Performed By: #### C USTB #### [address] Bilirubin,Urine Negative Normal Negative [facility] Comment on above: Order Comment: Name Collection Type:: Clean-Voided Midstream Performed By: #### C USTB #### [address] Calcium Oxalate Crystals,Urine 3+ Normal [facility] Comment on above: Order Comment: Name Collection Type:: Clean-Voided Midstream Performed By: #### C USTB #### [facility] [address] [place] [address] [place] Glucose Ql (U) Normal Normal Normal [facility] Comment on above: Order Comment: Name Collection Type:: Clean-Voided Midstream Performed By: #### C USTB #### [place] [address] [place] Hyaline Casts,Urine 0-8 Normal 0-8 [facility] Comment on above: Order Comment: Name Collection Type:: Clean-Voided Midstream Result Comment: PERF ORMED BY: [place] [address] PATHOLOGIST INTERVENTIONAL SALE CONSULTANT ALLA OROZCO M.D. Performed By: #### C USTB #### [address] Ketones Ql (U) Trace High Negative [facility] Comment on above: Order Comment: Name Collection Type:: Clean-Voided Midstream Performed By: #### C USTB #### [address] Leukocyte esterase Test strip Ql (U) 2+ High Negative [facility] Comment on above: Order Comment: Name Collection Type:: Clean-Voided Midstream Performed By: #### C USTB #### [place] [address] [place] Nitrite,Urine Negative Normal Negative [facility] Comment on above: Order Comment: Name Collection Type:: Clean-Voided Midstream Performed By: #### C USTB #### [place] [address] [place] Occult Blood,Urine Negative Normal Negative [facility] Comment on above: Order Comment: Name Collection Type:: Clean-Voided Midstream Result Comment: PERF ORMED BY: [place] [address] PATHOLOGIST INTERVENTIONAL SALE CONSULTANT ALLA OROZCO M.D. Performed By: #### C USTB #### [address] Othe Crystals,Urine None Seen Normal [facility] Comment on above: Order Comment: Name Collection Type:: Clean-Voided Midstream Performed By: #### C USTB #### [place] [address] [place] Protein,Urine Trace High Negative [facility] Comment on above: Order Comment: Name Collection Type:: Clean-Voided Midstream Performed By: #### C USTB #### [place] [address] [place] RBC,Urine 3-4 Normal 0-4 [facility] Comment on above: Order Comment: Name Collection Type:: Clean-Voided Midstream Performed By: #### C USTB #### [address] Specificy [place],Urine 1.025 Normal 1.001-1.03 0 [facility] Comment on above: Order Comment: Name Collection Type:: Clean-Voided Midstream Performed By: #### C USTB #### [address] Squamous Epithelial Cell,Urine 10-19 High 0-2 [facility] Comment on above: Order Comment: Name Collection Type:: Clean-Voided Midstream Performed By: #### C USTB #### [address] Urobilinogen,Urine Normal Normal Normal [facility] Comment on above: Order Comment: Name Collection Type:: Clean-Voided Midstream Performed By: #### C USTB #### [address] WBC,Urine 10-19 High 0-4 [facility] Comment on above: Order Comment: Name Collection Type:: Clean-Voided Midstream Performed By: #### C USTB #### [address] Ketones Auto test strip (U) [Mass/Vol]Ordered By: Radha Molina on 02-01-2023 Ketones (U) [Mass/Vol] Trace Negative [facility] Laboratory - UrinalysisOrder ed By: Radha Molina on 02-01-2023 Hyaline casts LM Ql (Urine sed) 0-8 [LPF] 0-8 [facility] Nitrite Test strip Ql (U)Ord ered By: Radha Molina on 02-01-2023 Nitrite Ql (U) Negative Negative [facility] OB Urine Drug Screen (NO THC )on 02-01-2023 Amphetamine Screen,Urine Negative Normal Negative [facility] Comment on above: Performed By: #### C USTB #### [address] Barbiturate Screen,Urine Negative Normal Negative [facility] Comment on above: Performed By: #### C USTB #### [facility] [address] Benzodiazepines Screen,Urine Negative Normal Negative [facility] Comment on above: Performed By: #### C USTB #### [address] Cocaine Screen,Urine Negative Normal Negative [facility] Comment on above: Performed By: #### C USTB #### [facility] [address] Opiate Screen,Urine Negative Normal Negative [facility] Comment on above: Performed By: #### C USTB #### [address] Phencyclidine Screen, Urine Negative Normal Negative [facility] Comment on above: Result Comment: Thes e are unconfirmed results and should not be used for legal purposes. Drug Cut-Off Concentration: AMPH 1000 ng/mL FAVIOLA 200 ng/mL THA 200 ng/mL COCM 300 ng/mL OP 300 ng/mL PCP 25 ng/mL PERFORMED BY: [place] [address] PATHOLOGIST INTERVENTIONAL SALE CONSULTANT ALLA OROZCO M.D. Performed By: #### C USTB #### [address] Opiates [Presence] in Urine by Screen methodOrdered By: Radha Molina on 02-01-2023 Opiates Screen Ql (U) Negative Negative [facility] Phencyclidine Screen Ql (U)O rdered By: Radha Molina on 02-01-2023 Phencyclidine Ql (U) Negative Negative [facility] Comment on above: These are unconfirme d results and should not be used for legal purposes. Drug Cut-Off Concentration: AMPH 1000 ng/mL FAVIOLA 200 ng/mL THA 200 ng/mL COCM 300 ng/mL OP 300 ng/mL PCP 25 ng/mL Protein Auto test strip (U) [Mass/Vol]Ordered By: Radha Molina on 02-01-2023 Protein (U) [Mass/Vol] Trace mg/dL Negative [facility] Specific gravity Auto test s trip (U) [Rel density]Ordered By: Radha Molina on 02-01-2023 Specific gravity (U) [Rel density] 1.025 1.001-1.03 0 [facility] Squamous epithelial cells de tection in urine sediment by light microscopyOrdered By: Radha Molina on 02-01-2023 Epithelial cells.squamous LM Ql (Urine sed) 10-19 [HPF] 0-2 [facility] Urine Cultureon 02-01-2023 Bacteria identified Cx Nom (U) <9,000 colonies/ml mixed bacterial skin contaminants 2 Days PERFORMED BY: [place] [address] PATHOLOGIST INTERVENTIONAL SALE CONSULTANT ALLA OROZCO M.D. Normal [facility] Comment on above: Performed By: #### C USTB #### [address] Urine bacteria detection by automated methodOrdered By: Radha Molina on 02-01-2023 Bacteria Auto Ql (U) 1+ None Seen [facility] Urine clarity by refractomet ry automatedOrdered By: Radha Molina on 02-01-2023 Clarity Refractometry automated (U) Cloudy Clear [facility] Urine culture routineOrdered By: Radha Molina on 02-01-2023 Bacteria identified Cx Nom (U) 2 Days [facility] Urine glucose measurement by automated test strip (mass/volume)Ordered By: Radha Molina on 02-01-2023 Glucose Auto test strip (U) [Mass/Vol] Normal mg/dL Normal [facility] Urine hemoglobin detection b y automated test stripOrdered By: Radha Molina on 02-01-2023 Hemoglobin Auto test strip Ql (U) Negative Negative [facility] Urine leukocyte esterase det ection by automated test stripOrdered By: Radha Molina on 02-01-2023 Leukocyte esterase Auto test strip Ql (U) 2+ Negative [facility] Urine pH measurement by auto mated test stripOrdered By: Radha Molina on 02-01-2023 pH (U) 6.0 [pH] Normal 5.0-9.0 [facility] Comment on above: Order Comment: Name Collection Type:: Clean-Voided Midstream Performed By: #### C USTB #### [facility] [address] Urine sediment crystal ident ification by light microscopyOrdered By: Radha Molina on 02-01-2023 Crystals LM Nom (Urine sed) None seen [HPF] [facility] Urobilinogen Auto test strip (U) [Mass/Vol]Ordered By: Radha Molina on 02-01-2023 Urobilinogen (U) [Mass/Vol] Normal mg/dL Normal [facility] Amphetamine Screen Ql (U)Ord ered By: MARY KAY CANTU on 01-30-2023 Amphetamines Ql (U) Negative Negative [facility] Automated erythrocytes count in urine sediment (number/area)Ordered By: MARY KAY CANTU on 01-30-2023 RBC Auto (Urine sed) [#/Area] 0-1 [HPF] 0-4 [facility] Automated leukocytes count i n urine sediment (number/area)Ordered By: MARY KAY CANTU on 01-30-2023 WBC Auto (Urine sed) [#/Area] 3-4 [HPF] 0-4 [facility] Automated urine color determ inationOrdered By: MARY KAY CANTU on 01-30-2023 Color (U) Yellow Normal Yellow [facility] Comment on above: Order Comment: Name Collection Type:: Clean-Voided Midstream Performed By: #### O BUDS, ADDONUAPLUS #### [facility] [address] Barbiturates [Presence] in U rine by Screen methodOrdered By: MARY KAY CANTU on 01-30-2023 Barbiturates Screen Ql (U) Negative Negative [facility] Benzodiazepines Screen Ql (U )Ordered By: MARY KAY CANTU on 01-30-2023 Benzodiazepines Ql (U) Negative Negative [facility] Benzoylecgonine [Presence] i n Urine by Screen methodOrdered By: MARY KAY CANTU on 01-30-2023 Benzoylecgonine Screen Ql (U) Negative Negative [facility] Bilirubin Test strip Ql (U)O rdered By: MARY KAY CANTU on 01-30-2023 Bilirubin Ql (U) Negative Negative [facility] Dipstick and Microscopicon 1 04-02-2022 Appearance (U) Clear Normal Clear [facility] Comment on above: Order Comment: Name Collection Type:: Clean-Voided Midstream Performed By: #### O BUDS, ADDONUAPLUS #### [address] Bacteria,Urine None Seen Normal None Seen [facility] Comment on above: Order Comment: Name Collection Type:: Clean-Voided Midstream Performed By: #### O BUDS, ADDONUAPLUS #### [address] Bilirubin,Urine Negative Normal Negative [facility] Comment on above: Order Comment: Name Collection Type:: Clean-Voided Midstream Performed By: #### O BUDS, ADDONUAPLUS #### [address] Glucose Ql (U) Normal Normal Normal [facility] Comment on above: Order Comment: Name Collection Type:: Clean-Voided Midstream Performed By: #### O BUDS, ADDONUAPLUS #### [address] Hyaline Casts,Urine 0-8 Normal 0-8 [facility] Comment on above: Order Comment: Name Collection Type:: Clean-Voided Midstream Result Comment: PERF ORMED BY: [place] [address] PATHOLOGIST INTERVENTIONAL SALE CONSULTANT ALLA OROZCO M.D. Performed By: #### O BUDS, ADDONUAPLUS #### [address] Ketones Ql (U) Negative Normal Negative [facility] Comment on above: Order Comment: Name Collection Type:: Clean-Voided Midstream Performed By: #### O BUDS, ADDONUAPLUS #### [address] Leukocyte esterase Test strip Ql (U) 2+ High Negative [facility] Comment on above: Order Comment: Name Collection Type:: Clean-Voided Midstream Performed By: #### O BUDS, ADDONUAPLUS #### [address] Nitrite,Urine Negative Normal Negative [facility] Comment on above: Order Comment: Name Collection Type:: Clean-Voided Midstream Performed By: #### O BUDS, ADDONUAPLUS #### [address] Occult Blood,Urine Negative Normal Negative [facility] Comment on above: Order Comment: Name Collection Type:: Clean-Voided Midstream Result Comment: PERF ORMED BY: [place] [address] PATHOLOGIST INTERVENTIONAL SALE CONSULTANT ALLA OROZCO M.D. Performed By: #### O BUDS, ADDONUAPLUS #### [address] Protein,Urine Negative Normal Negative [facility] Comment on above: Order Comment: Name Collection Type:: Clean-Voided Midstream Performed By: #### O BUDS, ADDONUAPLUS #### [address] RBC LM.HPF (Urine sed) [#/Area] 0 /[HPF] Normal 0-4 [facility] Comment on above: Order Comment: Name Collection Type:: Clean-Voided Midstream Performed By: #### O BUDS, ADDONUAPLUS #### [address] Specificy [place],Urine 1.017 Normal 1.001-1.03 0 [facility] Comment on above: Order Comment: Name Collection Type:: Clean-Voided Midstream Performed By: #### O BUDS, ADDONUAPLUS #### [address] Squamous Epithelial Cell,Urine 1-2 Normal 0-2 [facility] Comment on above: Order Comment: Name Collection Type:: Clean-Voided Midstream Performed By: #### O BUDS, ADDONUAPLUS #### [place] [address] [place] Urobilinogen,Urine Normal Normal Normal [facility] Comment on above: Order Comment: Name Collection Type:: Clean-Voided Midstream Performed By: #### O BUDS, ADDONUAPLUS #### [place] [address] [place] WBC,Urine 3-4 Normal 0-4 [facility] Comment on above: Order Comment: Name Collection Type:: Clean-Voided Midstream Performed By: #### O BUDS, ADDONUAPLUS #### [address] Ketones Auto test strip (U) [Mass/Vol]Ordered By: MARY KAY CANTU on 01-30-2023 Ketones (U) [Mass/Vol] Negative Negative [facility] Laboratory - UrinalysisOrder ed By: MARY KAY CANTU on 01-30-2023 Hyaline casts LM Ql (Urine sed) 0-8 [LPF] 0-8 [facility] Nitrite Test strip Ql (U)Ord ered By: MARY KAY CANTU on 01-30-2023 Nitrite Ql (U) Negative Negative [facility] OB Urine Drug Screen (NO THC )on 01-30-2023 Amphetamine Screen,Urine Negative Normal Negative [facility] Comment on above: Performed By: #### O BUDS, ADDONUAPLUS #### [place] [address] [place] Barbiturate Screen,Urine Negative Normal Negative [facility] Comment on above: Performed By: #### O BUDS, ADDONUAPLUS #### [place] [address] [place] Benzodiazepines Screen,Urine Negative Normal Negative [facility] Comment on above: Performed By: #### O BUDS, ADDONUAPLUS #### [address] Cocaine Screen,Urine Negative Normal Negative [facility] Comment on above: Performed By: #### O BUDS, ADDONUAPLUS #### [facility] [address] Opiate Screen,Urine Negative Normal Negative [facility] Comment on above: Performed By: #### O SHADY HAYSONUAPLUS #### [facility] [address] Phencyclidine Screen, Urine Negative Normal Negative [facility] Comment on above: Result Comment: Thes e are unconfirmed results and should not be used for legal purposes. Drug Cut-Off Concentration: AMPH 1000 ng/mL FAVIOLA 200 ng/mL THA 200 ng/mL COCM 300 ng/mL OP 300 ng/mL PCP 25 ng/mL PERFORMED BY: [place] [address] PATHOLOGIST INTERVENTIONAL SALE CONSULTANT ALLA OROZCO M.D. Performed By: #### O SHADY HAYSONUAPLUS #### [address] Opiates [Presence] in Urine by Screen methodOrdered By: MARY KAY CANTU on 01-30-2023 Opiates Screen Ql (U) Negative Negative [facility] Phencyclidine Screen Ql (U)O rdered By: MARY KAY CANTU on 01-30-2023 Phencyclidine Ql (U) Negative Negative [facility] Comment on above: These are unconfirme d results and should not be used for legal purposes. Drug Cut-Off Concentration: AMPH 1000 ng/mL FAVIOLA 200 ng/mL THA 200 ng/mL COCM 300 ng/mL OP 300 ng/mL PCP 25 ng/mL Protein Auto test strip (U) [Mass/Vol]Ordered By: MARY KAY CANTU on 01-30-2023 Protein (U) [Mass/Vol] Negative Negative [facility] Specific gravity Auto test s trip (U) [Rel density]Ordered By: MARY KAY CANTU on 01-30-2023 Specific gravity (U) [Rel density] 1.017 1.001-1.03 0 [facility] Squamous epithelial cells de tection in urine sediment by light microscopyOrdered By: MARY KAY CANTU on 01-30-2023 Epithelial cells.squamous LM Ql (Urine sed) 1-2 [HPF] 0-2 [facility] Urine bacteria detection by automated methodOrdered By: MARY KAY CANTU on 01-30-2023 Bacteria Auto Ql (U) None seen None Seen [facility] Urine clarity by refractomet ry automatedOrdered By: MARY KAY CANTU on 01-30-2023 Clarity Refractometry automated (U) Clear Clear [facility] Urine glucose measurement by automated test strip (mass/volume)Ordered By: MARY KAY CANTU on 01-30-2023 Glucose Auto test strip (U) [Mass/Vol] Normal mg/dL Normal [facility] Urine hemoglobin detection b y automated test stripOrdered By: MARY KAY CANTU on 01-30-2023 Hemoglobin Auto test strip Ql (U) Negative Negative [facility] Urine leukocyte esterase det ection by automated test stripOrdered By: MARY KAY CANTU on 01-30-2023 Leukocyte esterase Auto test strip Ql (U) 2+ Negative [facility] Urine pH measurement by auto mated test stripOrdered By: MARY KAY CANTU on 01-30-2023 pH (U) 6.5 [pH] Normal 5.0-9.0 [facility] Comment on above: Order Comment: Name Collection Type:: Clean-Voided Midstream Performed By: #### JOSE EVANS #### [address] Urobilinogen Auto test strip (U) [Mass/Vol]Ordered By: MARY KAY CANTU on 01-30-2023 Urobilinogen (U) [Mass/Vol] Normal mg/dL Normal [facility] S. agalactiae Org specific c x Ql (Unsp spec)Ordered By: Radha Molina on 01-05-2023 Group B Streptococcus Culture Strep. agalactiae Grp B [facility] Strep B Cultureon 01-05-2023 Strep B Culture ORGANISM: Strep. agalactiae Grp B (O:B) PERFORMED BY: [place] [address] PATHOLOGIST INTERVENTIONAL SALE CONSULTANT ALLA OROZCO M.D. Normal [facility] Comment on above: Performed By: #### C USTB #### [facility] [address] [id number] [facility] Glucose Tolerance 3 Houron 1 02-21-2022 Glucose Tolerance 3 Hour Normal [facility] Comment on above: Result Comment: FAST ING 88 Col: 12/22/22 0803 1HR GLU 146 Col: 12/22/22 1017 2HR GLU 126 Col: 12/22/22 1117 3HR GLU 144 Col: 12/22/22 1217 NON-GESTATIONAL GESTATIONAL FASTING 70-100 < 92 1 HOUR < 200 < 180 2 HOUR < 140 < 153 3 HOUR NOT ESTABLISHED < 140 PERFORMED BY: [place] [address] PATHOLOGIST INTERVENTIONAL SALE CONSULTANT ALLA OROZCO M.D. Performed By: #### G TT3 #### [facility] [address] [id number] [facility] Serum or plasma glucose tole nabeel 3 hours panelOrdered By: Radha Molina on 12-22-2022 Glucose tolerance 3 hours panel See comment [facility] Comment on above: FASTING 88 Col: 11/0 09/06 0803 1HR GLU 146 Col: 12/22/22 1017 2HR GLU 126 Col: 12/22/22 1117 3HR GLU 144 Col: 12/22/22 1217 fibronectinOrdered By: Radha Molina on 12-08-2022 Fibronectin. (Vag fld) [Mass/Vol] Negative Negative [facility] Alanine aminotransferase [En zymatic activity/volume] in Serum or PlasmaOrdered By: Nataly Toure on 12-03-2022 ALT [Catalytic activity/Vol] 7 U/L 7-52 [facility] Albumin [Mass/volume] in Ser um or Plasma by Bromocresol green (BCG) dye binding methoOrdered By: Nataly Toure on 12-03-2022 Albumin BCG dye [Mass/Vol] 3.4 g/dL 3.5-5.7 [facility] Alkaline phosphatase [Enzyma tic activity/volume] in Serum or PlasmaOrdered By: Nataly Toure on 12-03-2022 ALP [Catalytic activity/Vol] 79 U/L 34-104 [facility] Aspartate aminotransferase [ Enzymatic activity/volume] in Serum or PlasmaOrdered By: Nataly Toure on 12-03-2022 AST [Catalytic activity/Vol] 9 U/L 13-39 [facility] Basophils Auto (Bld) [#/Vol] Ordered By: Nataly Junesic on 12-03-2022 Basophils (Bld) [#/Vol] 0.0 10*3/uL 0.0-0.2 [facility] Basophils/100 WBC Auto (Bld) Ordered By: Nataly Junesic on 12-03-2022 Basophils/100 WBC (Bld) 0.1 % . [facility] Bilirubin.total [Mass/volume ] in Serum or PlasmaOrdered By: Nataly Toure on 12-03-2022 Bilirubin [Mass/Vol] 0.2 mg/dL 0.3-1.0 [facility] Calcium [Mass/volume] in Ser um or PlasmaOrdered By: Nataly Toure on 12-03-2022 Calcium [Mass/Vol] 8.9 mg/dL 8.6-10.3 [facility] Carbon dioxide, total [Moles /volume] in Serum or PlasmaOrdered By: Nataly Toure on 12-03-2022 CO2 [Moles/Vol] 21.9 mmol/L 21.0-31.0 [facility] Chloride [Moles/volume] in S rosa or PlasmaOrdered By: Nataly Toure on 12-03-2022 Chloride [Moles/Vol] 102 mmol/L 98-107 [facility] Creatinine [Mass/volume] in Serum or PlasmaOrdered By: Nataly Jerniganc on 12-03-2022 Creatinine [Mass/Vol] 0.49 mg/dL 0.60-1.20 [facility] Eosinophils Auto (Bld) [#/Vo l]Ordered By: Nataly Junesic on 12-03-2022 Eosinophils (Bld) [#/Vol] 0.0 10*3/uL 0.0-0.45 [facility] Eosinophils/100 WBC Auto (Bl d)Ordered By: Nataly Junesic on 12-03-2022 Eosinophils/100 WBC (Bld) 0.3 % . [facility] Erythrocyte distribution wid th Auto (RBC) [Ratio]Ordered By: Nataly Toure on 12-03-2022 Erythrocyte distribution width (RBC) [Ratio] 14.4 % 11.9-15.3 [facility] Globulin Calc (S) [Mass/Vol] Ordered By: Nataly Toure on 12-03-2022 Globulin (S) [Mass/Vol] 3.3 g/dL [facility] Glucose [Mass/volume] in Ser um or PlasmaOrdered By: Nataly Toure on 12-03-2022 Glucose [Mass/Vol] 94 mg/dL 70-100 [facility] Comment on above: ADA recommended refe rence rangeRandom Glucose Reference Range is dependent on time and content of last meal. Glucose of more than 200 mg/dL in a nonstressed, ambulatory subject supports the diagnosis of Diabetes Mellitus. Hematocrit Auto (Bld) [Volum e fraction]Ordered By: Nataly Toure on 12-03-2022 Hematocrit (Bld) [Volume fraction] 33.8 % 34.0-46.4 [facility] Hemoglobin [Mass/volume] in BloodOrdered By: Nataly Toure on 12-03-2022 Hemoglobin (Bld) [Mass/Vol] 11.0 g/dL 11.8-15.4 [facility] Iron [Mass/volume] in Serum or PlasmaOrdered By: Nataly Toure on 12-03-2022 Iron [Mass/Vol] 38 ug/dL 50-212 [facility] Iron binding capacity [Mass/ volume] in Serum or PlasmaOrdered By: Nataly Toure on 12-03-2022 Iron binding capacity [Mass/Vol] 587 ug/dL 255-450 [facility] Iron saturation [Mass Fracti on] in Serum or PlasmaOrdered By: Nataly Toure on 12-03-2022 Iron saturation [Mass fraction] 6.5 % 20-50 [facility] Leukocytes [#/volume] correc kee for nucleated erythrocytes in Blood by Automated counOrdered By: Nataly Toure on 12-03-2022 WBC corrected for nucl RBC Auto (Bld) [#/Vol] 11.2 10*3/uL 3.8-11.6 [facility] Lymphocytes Auto (Bld) [#/Vo l]Ordered By: Nataly Toure on 12-03-2022 Lymphocytes (Bld) [#/Vol] 1.8 10*3/uL 1.00-4.8 [facility] Lymphocytes/100 WBC Auto (Bl d)Ordered By: Nataly Jerniganc on 12-03-2022 Lymphocytes/100 WBC (Bld) 16.0 % . [facility] MCH Auto (RBC) [Entitic mass ]Ordered By: Nataly Toure on 12-03-2022 MCH (RBC) [Entitic mass] 26.0 pg 24.7-34.3 [facility] MCHC Auto (RBC) [Mass/Vol]Or dered By: Nataly Junesic on 12-03-2022 MCHC (RBC) [Mass/Vol] 32.5 g/dL 32.0-35.0 [facility] MCV Auto (RBC) [Entitic vol] Ordered By: Nataly Toure on 12-03-2022 MCV (RBC) [Entitic vol] 80.1 fL 80-100 [facility] Magnesium [Mass/volume] in S rosa or PlasmaOrdered By: Nataly Toure on 12-03-2022 Magnesium [Mass/Vol] 1.7 mg/dL 1.9-2.7 [facility] Monocytes Auto (Bld) [#/Vol] Ordered By: Nataly Jerniganc on 12-03-2022 Monocytes (Bld) [#/Vol] 0.8 10*3/uL 0.0-0.8 [facility] Monocytes/100 WBC Auto (Bld) Ordered By: Nataly Jerniganc on 12-03-2022 Monocytes/100 WBC (Bld) 6.9 % . [facility] Neutrophils Auto (Bld) [#/Vo l]Ordered By: Nataly Junesic on 12-03-2022 Neutrophils (Bld) [#/Vol] 8.6 10*3/uL 1.8-7.7 [facility] Neutrophils/100 WBC Auto (Bl d)Ordered By: Nataly Jerniganc on 12-03-2022 Neutrophils/100 WBC (Bld) 76.7 % . [facility] No Panel InformationOrdered By: Nataly Toure on 12-03-2022 Estimated GFR (CKD-EPI) > 60.0 mL/Min [facility] Creatinine Clearance (Chem N/A [facility] Nucleated erythrocytes [Pres ence] in Blood by Automated countOrdered By: Nataly Toure on 12-03-2022 Nucleated RBC Auto Ql (Bld) 0.0 /100{WBC} 0-0.5 [facility] Platelet mean volume Auto (B ld) [Entitic vol]Ordered By: Nataly Toure on 12-03-2022 Platelet mean volume (Bld) [Entitic vol] 9.0 fL 6.3-10.7 [facility] Platelets Auto (Bld) [#/Vol] Ordered By: Nataly Toure on 12-03-2022 Platelets (Bld) [#/Vol] 205 10*3/uL 150-450 [facility] Potassium [Moles/volume] in Serum or PlasmaOrdered By: Nataly Toure on 12-03-2022 Potassium [Moles/Vol] 3.8 mmol/L 3.5-5.1 [facility] Protein [Mass/volume] in Ser um or PlasmaOrdered By: Nataly Toure on 12-03-2022 Protein [Mass/Vol] 6.7 g/dL 6.4-8.9 [facility] RBC Auto (Bld) [#/Vol]Ordere d By: Nataly Toure on 12-03-2022 RBC (Bld) [#/Vol] 4.22 10*6/uL 3.60-5.00 [facility] Serum or plasma albumin/glob ulin mass ratioOrdered By: Nataly Toure on 12-03-2022 Albumin/Globulin [Mass ratio] 1.0 {ratio} [facility] Serum or plasma anion gap de terminationOrdered By: Nataly Toure on 12-03-2022 Anion gap [Moles/Vol] 17.9 mmol/L 6.0-15.0 [facility] Sodium [Moles/volume] in Ser um or PlasmaOrdered By: Nataly Toure on 12-03-2022 Sodium [Moles/Vol] 138 mmol/L 136-145 [facility] Thyrotropin [Units/volume] i n Serum or PlasmaOrdered By: Nataly Toure on 12-03-2022 TSH Qn 2.65 m[IU]/L 0.45-5.33 [facility] Transferrin [Mass/volume] in Serum or PlasmaOrdered By: Nataly Toure on 12-03-2022 Transferrin [Mass/Vol] 419 mg/dL 203-362 [facility] Urea nitrogen [Mass/volume] in Serum or PlasmaOrdered By: Nataly Toure on 12-03-2022 Urea nitrogen [Mass/Vol] 11 mg/dL 7-25 [facility] WBC Auto (Bld) [#/Vol]Ordere d By: Nataly Toure on 12-03-2022 WBC (Bld) [#/Vol] 11.2 10*3/uL 3.8-11.6 [facility] Activated partial thrombopla stin time (aPTT) in platelet poor plasma by coagulation aOrdered By: Staci Ortiz on 12-01-2022 aPTT Coag (PPP) [Time] 26.8 s 25.1-36.5 [facility] Comment on above: A hematocrit value g reater than 55% may lead to inaccurate results in coagulation testing. Patients having hematocrit values >55% require a special collection tube for coagulation studies. Please contact the laboratory at [phone] for redraw instructions. Automated erythrocytes count in urine sediment (number/area)Ordered By: Staci Ortiz on 12-01-2022 RBC Auto (Urine sed) [#/Area] 0-1 [HPF] 0-4 [facility] Automated leukocytes count i n urine sediment (number/area)Ordered By: Staci Ortiz on 12-01-2022 WBC Auto (Urine sed) [#/Area] 3-4 [HPF] 0-4 [facility] Basophils Auto (Bld) [#/Vol] Ordered By: Staci Ortiz on 12-01-2022 Basophils (Bld) [#/Vol] 0.0 10*3/uL 0.0-0.2 [facility] Basophils/100 WBC Auto (Bld) Ordered By: Staci Ortiz on 12-01-2022 Basophils/100 WBC (Bld) 0.3 % . [facility] Bilirubin Test strip Ql (U)O rdered By: Staci Ortiz on 12-01-2022 Bilirubin Ql (U) Negative Negative [facility] COVID CepheidOrdered By: Noah Ortiz on 12-01-2022 SARS-CoV-2 (COVID-19) Ab IA Ql Negative Negative [facility] Comment on above: This is a duplicate [employer] Xpert Xpress CoV-2/Flu/RSV Plus RNA by RT-PCR result to be used for statistical tracking purpose only. COVID-19 Detected/Not Detect edOrdered By: Staci Ortiz on 12-01-2022 SARS-CoV-2 (COVID-19) RNA SVETLANA+non-probe Ql (Nph) Not detected Not Detecte [facility] Comment on above: This is a duplicate RP2.1 COVID (PCR) result to be used for statistical tracking purpose only. Calcium [Mass/volume] in Ser um or PlasmaOrdered By: Staci Ortiz on 12-01-2022 Calcium [Mass/Vol] 9.1 mg/dL 8.6-10.3 [facility] Carbon dioxide, total [Moles /volume] in Serum or PlasmaOrdered By: Staci Ortiz on 12-01-2022 CO2 [Moles/Vol] 22.4 mmol/L 21.0-31.0 [facility] Chloride [Moles/volume] in S rosa or PlasmaOrdered By: Staci Ortiz on 12-01-2022 Chloride [Moles/Vol] 102 mmol/L 98-107 [facility] Color Auto (U)Ordered By: Elizabeth Ortiz on 12-01-2022 Color (U) Yellow Yellow [facility] Creatinine [Mass/volume] in Serum or PlasmaOrdered By: Staci Ortiz on 12-01-2022 Creatinine [Mass/Vol] 0.51 mg/dL 0.60-1.20 [facility] Eosinophils Auto (Bld) [#/Vo l]Ordered By: Staci Ortiz on 12-01-2022 Eosinophils (Bld) [#/Vol] 0.0 10*3/uL 0.0-0.45 [facility] Eosinophils/100 WBC Auto (Bl d)Ordered By: Staci Ortiz on 12-01-2022 Eosinophils/100 WBC (Bld) 0.4 % . [facility] Erythrocyte distribution wid th Auto (RBC) [Ratio]Ordered By: Staci Ortiz on 12-01-2022 Erythrocyte distribution width (RBC) [Ratio] 14.5 % 11.9-15.3 [facility] Fibrin D-dimer [Presence] in Platelet poor plasma by Latex agglutinationOrdered By: Staci Ortiz on 12-01-2022 Fibrin D-dimer LA Ql (PPP) 231 ng/mL 0-243 [facility] Comment on above: The reference range [...] coagulation studies. Please contact the laboratory at [phone] for redraw instructions. Glucose [Mass/volume] in Ser um or PlasmaOrdered By: Staci Ortiz on 12-01-2022 Glucose [Mass/Vol] 88 mg/dL 70-100 [facility] Comment on above: ADA recommended refe rence rangeRandom Glucose Reference Range is dependent on time and content of last meal. Glucose of more than 200 mg/dL in a nonstressed, ambulatory subject supports the diagnosis of Diabetes Mellitus. HCG ( test) IA.rapi d Ql (U)Ordered By: Staci Ortiz on 12-01-2022 HCG ( test) Ql (U) Positive [facility] Hematocrit Auto (Bld) [Volum e fraction]Ordered By: Staci Ortiz on 12-01-2022 Hematocrit (Bld) [Volume fraction] 34.2 % 34.0-46.4 [facility] Hemoglobin [Mass/volume] in BloodOrdered By: Staci Ortiz on 12-01-2022 Hemoglobin (Bld) [Mass/Vol] 11.3 g/dL 11.8-15.4 [facility] INR in Platelet poor plasma by Coagulation assayOrdered By: Staci Ortiz on 12-01-2022 INR Coag (PPP) [Relative time] 0.9 {INR} [facility] Comment on above: INR Therapeutic Rang [...] on 12-01-2022 Ketones (U) [Mass/Vol] Negative Negative [facility] Laboratory - UrinalysisOrder ed By: Staci Ortiz on 12-01-2022 Hyaline casts LM Ql (Urine sed) 0-8 [LPF] 0-8 [facility] Leukocytes [#/volume] correc kee for nucleated erythrocytes in Blood by Automated counOrdered By: Staci Ortiz on 12-01-2022 WBC corrected for nucl RBC Auto (Bld) [#/Vol] 12.1 10*3/uL 3.8-11.6 [facility] Lymphocytes Auto (Bld) [#/Vo l]Ordered By: Staci Ortiz on 12-01-2022 Lymphocytes (Bld) [#/Vol] 1.8 10*3/uL 1.00-4.8 [facility] Lymphocytes/100 WBC Auto (Bl d)Ordered By: Staci Ortiz on 12-01-2022 Lymphocytes/100 WBC (Bld) 14.9 % . [facility] MCH Auto (RBC) [Entitic mass ]Ordered By: Staci Ortiz on 12-01-2022 MCH (RBC) [Entitic mass] 26.4 pg 24.7-34.3 [facility] MCHC Auto (RBC) [Mass/Vol]Or dered By: Staci Ortiz on 12-01-2022 MCHC (RBC) [Mass/Vol] 33.1 g/dL 32.0-35.0 [facility] MCV Auto (RBC) [Entitic vol] Ordered By: Staci Ortiz on 12-01-2022 MCV (RBC) [Entitic vol] 79.7 fL 80-100 [facility] Monocyte distribution width [Entitic volume] in Blood by AutomatedOrdered By: Staci Ortiz on 12-01-2022 Monocyte distribution width Auto (Bld) [Entitic vol] 16.82 % 0.00-20.00 [facility] Monocytes Auto (Bld) [#/Vol] Ordered By: Staci Ortiz on 12-01-2022 Monocytes (Bld) [#/Vol] 0.9 10*3/uL 0.0-0.8 [facility] Monocytes/100 WBC Auto (Bld) Ordered By: Staci Ortiz on 12-01-2022 Monocytes/100 WBC (Bld) 7.6 % . [facility] Natriuretic peptide B [Mass/ Vol]Ordered By: Staci Ortiz on 12-01-2022 Natriuretic peptide B (Bld) [Mass/Vol] 10.0 pg/mL 5-100 [facility] Neutrophils Auto (Bld) [#/Vo l]Ordered By: Staci Ortiz on 12-01-2022 Neutrophils (Bld) [#/Vol] 9.3 10*3/uL 1.8-7.7 [facility] Neutrophils/100 WBC Auto (Bl d)Ordered By: Staci Ortiz on 12-01-2022 Neutrophils/100 WBC (Bld) 76.8 % . [facility] Nitrite Test strip Ql (U)Ord ered By: Staci Ortiz on 12-01-2022 Nitrite Ql (U) Negative Negative [facility] No Panel InformationOrdered By: Staci Ortiz on 12-01-2022 Estimated GFR (CKD-EPI) > 60.0 mL/Min [facility] Creatinine Clearance (Chem 194.78 [facility] Nucleated erythrocytes [Pres ence] in Blood by Automated countOrdered By: Staci Dianeshira on 12-01-2022 Nucleated RBC Auto Ql (Bld) 0.0 /100{WBC} 0-0.5 [facility] Platelet mean volume Auto (B ld) [Entitic vol]Ordered By: Staci Ortiz on 12-01-2022 Platelet mean volume (Bld) [Entitic vol] 8.8 fL 6.3-10.7 [facility] Platelets Auto (Bld) [#/Vol] Ordered By: Staci Ortiz on 12-01-2022 Platelets (Bld) [#/Vol] 212 10*3/uL 150-450 [facility] Potassium [Moles/volume] in Serum or PlasmaOrdered By: Staci Ortiz on 12-01-2022 Potassium [Moles/Vol] 3.7 mmol/L 3.5-5.1 [facility] Protein Auto test strip (U) [Mass/Vol]Ordered By: Staci Ortiz on 12-01-2022 Protein (U) [Mass/Vol] Negative Negative [facility] Prothrombin time (PT)Ordered By: Staci Ortiz on 12-01-2022 PT Coag (PPP) [Time] 11.3 s 9.0-12.9 [facility] Comment on above: A hematocrit value g reater than 55% may lead to inaccurate results in coagulation testing. Patients having hematocrit values >55% require a special collection tube for coagulation studies. Please contact the laboratory at [phone] for redraw instructions. RBC Auto (Bld) [#/Vol]Ordere d By: Staci Ortiz on 12-01-2022 RBC (Bld) [#/Vol] 4.29 10*6/uL 3.60-5.00 [facility] Respiratory pathogens DNA an d RNA panel - Nasopharynx by SVETLANA with non-probe detectionOrdered By: Staci Ortiz on 12-01-2022 Respiratory pathogens DNA and RNA panel SVETLANA+non-probe (Nph) [facility] Respiratory pathogens DNA and RNA panel SVETLANA+non-probe (Nph) [facility] Serum or plasma anion gap de terminationOrdered By: Staci Ortiz on 12-01-2022 Anion gap [Moles/Vol] 13.3 mmol/L 6.0-15.0 [facility] Sodium [Moles/volume] in Ser um or PlasmaOrdered By: Staci Ortiz on 12-01-2022 Sodium [Moles/Vol] 134 mmol/L 136-145 [facility] Specific gravity Auto test s trip (U) [Rel density]Ordered By: Staci Ortiz on 12-01-2022 Specific gravity (U) [Rel density] 1.021 1.001-1.03 0 [facility] Squamous epithelial cells de tection in urine sediment by light microscopyOrdered By: Staci Ortiz on 12-01-2022 Epithelial cells.squamous LM Ql (Urine sed) 5-9 [HPF] 0-2 [facility] Troponin I.cardiac [Mass/vol ume] in Serum or Plasma by Detection limit <= 0.01 ng/Ordered By: Staci Ortiz on 12-01-2022 Troponin I.cardiac DL <= 0.01 ng/mL [Mass/Vol] < 2.3 pg/mL 0.0-15.0 [facility] Urea nitrogen [Mass/volume] in Serum or PlasmaOrdered By: Staci Ortiz on 12-01-2022 Urea nitrogen [Mass/Vol] 9 mg/dL 7-25 [facility] Urine bacteria detection by automated methodOrdered By: Staci Ortiz 12-01-2022 Bacteria Auto Ql (U) None seen None Seen [facility] Urine clarity by refractomet ry automatedOrdered By: Staci Ortiz on 12-01-2022 Clarity Refractometry automated (U) Cloudy Clear [facility] Urine glucose measurement by automated test strip (mass/volume)Ordered By: Staci Ortiz on 12-01-2022 Glucose Auto test strip (U) [Mass/Vol] Normal mg/dL Normal [facility] Urine hemoglobin detection b y automated test stripOrdered By: Staci Ortiz on 12-01-2022 Hemoglobin Auto test strip Ql (U) Negative Negative [facility] Urine leukocyte esterase det ection by automated test stripOrdered By: Staci Ortiz on 12-01-2022 Leukocyte esterase Auto test strip Ql (U) 1+ Negative [facility] Urobilinogen Auto test strip (U) [Mass/Vol]Ordered By: Staci Ortiz on 12-01-2022 Urobilinogen (U) [Mass/Vol] Normal mg/dL Normal [facility] WBC Auto (Bld) [#/Vol]Ordere d By: Staci Ortiz on 12-01-2022 WBC (Bld) [#/Vol] 12.1 10*3/uL 3.8-11.6 [facility] pH Auto test strip (U)Ordere d By: Staci Ortiz on 12-01-2022 pH (U) 6.5 [pH] 5.0-9.0 [facility] Amphetamine Screen Ql (U)Ord ered By: TELMA Smith on 11-20-2022 Amphetamines Ql (U) Negative Negative [facility] Barbiturates [Presence] in U rine by Screen methodOrdered By: TELMA Smith on 11-20-2022 Barbiturates Screen Ql (U) Negative Negative [facility] Benzodiazepines Screen Ql (U )Ordered By: TELMA Smith on 11-20-2022 Benzodiazepines Ql (U) Negative Negative [facility] Benzoylecgonine [Presence] i n Urine by Screen methodOrdered By: TELMA Smith on 11-20-2022 Benzoylecgonine Screen Ql (U) Negative Negative [facility] Bilirubin Test strip Ql (U)O rdered By: TELMA Smith on 11-20-2022 Bilirubin Ql (U) Negative Negative [facility] Color Auto (U)Ordered By: MD DESEAN Smith on 11-20-2022 Color (U) Yellow Yellow [facility] Ketones Auto test strip (U) [Mass/Vol]Ordered By: TELMA Smith on 11-20-2022 Ketones (U) [Mass/Vol] Trace Negative [facility] Nitrite Test strip Ql (U)Ord ered By: TELMA Smith on 11-20-2022 Nitrite Ql (U) Negative Negative [facility] Opiates [Presence] in Urine by Screen methodOrdered By: TELMA Smith on 11-20-2022 Opiates Screen Ql (U) Negative Negative [facility] Phencyclidine Screen Ql (U)O rdered By: TELMA Smith on 11-20-2022 Phencyclidine Ql (U) Negative Negative [facility] Comment on above: These are unconfirme d results and should not be used for legal purposes. Drug Cut-Off Concentration: AMPH 1000 ng/mL FAVIOLA 200 ng/mL THA 200 ng/mL COCM 300 ng/mL OP 300 ng/mL PCP 25 ng/mL Protein Auto test strip (U) [Mass/Vol]Ordered By: TELMA Smith on 11-20-2022 Protein (U) [Mass/Vol] Negative Negative [facility] Specific gravity Auto test s trip (U) [Rel density]Ordered By: TELMA Smith on 11-20-2022 Specific gravity (U) [Rel density] 1.025 1.001-1.03 0 [facility] Urine clarity by refractomet ry automatedOrdered By: TELMA Smith on 11-20-2022 Clarity Refractometry automated (U) Clear Clear [facility] Urine glucose measurement by automated test strip (mass/volume)Ordered By: SHELLIE Smith on 11-20-2022 Glucose Auto test strip (U) [Mass/Vol] Normal mg/dL Normal [facility] Urine hemoglobin detection b y automated test stripOrdered By: TELMA Smith on 11-20-2022 Hemoglobin Auto test strip Ql (U) Negative Negative [facility] Urine leukocyte esterase det ection by automated test stripOrdered By: TELMA Smith on 11-20-2022 Leukocyte esterase Auto test strip Ql (U) Negative Negative [facility] Urobilinogen Auto test strip (U) [Mass/Vol]Ordered By: TELMA Smith on 11-20-2022 Urobilinogen (U) [Mass/Vol] Normal mg/dL Normal [facility] pH Auto test strip (U)Ordere d By: TELMA Smith on 11-20-2022 pH (U) 6.5 [pH] 5.0-9.0 [facility] Amphetamine Screen Ql (U)Ord ered By: MARY KAY CANTU on 11-19-2022 Amphetamines Ql (U) Negative Negative [facility] Barbiturates [Presence] in U rine by Screen methodOrdered By: MARY KAY CANTU on 11-19-2022 Barbiturates Screen Ql (U) Negative Negative [facility] Benzodiazepines Screen Ql (U )Ordered By: MARY KAY CANTU on 11-19-2022 Benzodiazepines Ql (U) Negative Negative [facility] Benzoylecgonine [Presence] i n Urine by Screen methodOrdered By: MARY KAY CANTU on 11-19-2022 Benzoylecgonine Screen Ql (U) Negative Negative [facility] Bilirubin Test strip Ql (U)O rdered By: MARY KAY CANTU on 11-19-2022 Bilirubin Ql (U) Negative Negative [facility] Color Auto (U)Ordered By: LJ CANTU on 11-19-2022 Color (U) Yellow Yellow [facility] fibronectinOrdered By: MARY KAY CANTU on 11-19-2022 Fibronectin. (Vag fld) [Mass/Vol] Positive Negative [facility] Ketones Auto test strip (U) [Mass/Vol]Ordered By: MARY KAY CANTU on 11-19-2022 Ketones (U) [Mass/Vol] Trace Negative [facility] [place] [facility] Nitrite Test strip Ql (U)Ord ered By: MARY KAY CANTU on 11-19-2022 Nitrite Ql (U) Negative Negative [facility] Opiates [Presence] in Urine by Screen methodOrdered By: MARY KAY CANTU on 11-19-2022 Opiates Screen Ql (U) Negative Negative [facility] Phencyclidine Screen Ql (U)O rdered By: MARY KAY CANTU on 11-19-2022 Phencyclidine Ql (U) Negative Negative [facility] Comment on above: These are unconfirme d results and should not be used for legal purposes. Drug Cut-Off Concentration: AMPH 1000 ng/mL FAVIOLA 200 ng/mL THA 200 ng/mL COCM 300 ng/mL OP 300 ng/mL PCP 25 ng/mL Protein Auto test strip (U) [Mass/Vol]Ordered By: MARY KAY CANTU on 11-19-2022 Protein (U) [Mass/Vol] Negative Negative [facility] [place] [facility] Specific gravity Auto test s trip (U) [Rel density]Ordered By: MARY KAY CANTU on 11-19-2022 Specific gravity (U) [Rel density] 1.017 1.001-1.03 0 [facility] Urine clarity by refractomet ry automatedOrdered By: MARY KAY CANTU on 11-19-2022 Clarity Refractometry automated (U) Clear Clear [facility] Urine glucose measurement by automated test strip (mass/volume)Ordered By: MARY KAY CANTU on 11-19-2022 Glucose Auto test strip (U) [Mass/Vol] Normal mg/dL Normal [facility] Urine hemoglobin detection b y automated test stripOrdered By: MARY KAY CANTU on 11-19-2022 Hemoglobin Auto test strip Ql (U) Negative Negative [facility] Urine leukocyte esterase det ection by automated test stripOrdered By: MARY KAY CANTU on 11-19-2022 Leukocyte esterase Auto test strip Ql (U) Negative Negative [facility] Urobilinogen Auto test strip (U) [Mass/Vol]Ordered By: MARY KAY CANTU on 11-19-2022 Urobilinogen (U) [Mass/Vol] Normal mg/dL Normal [facility] pH Auto test strip (U)Ordere d By: MARY KAY CANTU on 11-19-2022 pH (U) 7.5 [pH] 5.0-9.0 [facility] US PREG TVon 07-14-2022 US PREG [...] PETRA SALCIDO Date: 2022-07-14 00:14 Normal [facility] AMYLASEon 07-13-2022 Amylase [Catalytic activity/Vol] 43 U/L Normal 25-115 [facility] Comment on above: Performed By: #### C BC #### [facility] [address] [place] [address] Dr. Moris Winter CBC AUTO DIFFon 07-13-2022 BASO # 0.0 103/ul Normal 0.0-0.1 [facility] Comment on above: Performed By: #### C BC #### [facility] [address] [place] [address] Dr. Moris Winter Basophils/100 WBC (Bld) 0.2 % Normal 0.2-2.0 [facility] Comment on above: Performed By: #### C BC #### [facility] [address] [place] [address] Dr. Moris Winter EO # 0.1 103/ul Normal 0.0-0.7 [facility] Comment on above: Performed By: #### C BC #### [facility] [address] [place] [address] Dr. Moris Winter Eosinophils/100 WBC (Bld) 1.2 % Normal 0.9-7.0 [facility] Comment on above: Performed By: #### C BC #### [facility] [address] [place] [address] Dr. Moris Winter Erythrocyte distribution width (RBC) [Ratio] 13.8 % Normal 11.0-15.0 [facility] Comment on above: Performed By: #### C BC #### [facility] [address] [place] [address] Dr. Moris Winter Hematocrit (Bld) [Volume fraction] 36.6 % Normal 36.0-48.0 [facility] Comment on above: Performed By: #### C BC #### [facility] [address] [place] [address] Dr. Moris Winter Hemoglobin (Bld) [Mass/Vol] 12.3 g/dL Normal 12.0-16.0 [facility] Comment on above: Performed By: #### C BC #### [facility] [address] [place] [address] Dr. Moris Winter IG # 0.03 10e3/ul Normal 0.00-0.03 [facility] Comment on above: Performed By: #### C BC #### [facility] [address] [place] [address] Dr. Moris Winter IG % 0.3 % Normal 0.0-0.5 [facility] Comment on above: Performed By: #### C BC #### [facility] [address] [place] [address] Dr. Moris Winter LYMPH # 2.1 103/ul Normal 1.2-3.8 [facility] Comment on above: Performed By: #### C BC #### [facility] [address] [place] [address] Dr. Moris Winter Lymphocytes/100 WBC (Bld) 24.3 % Normal 20.5-60.0 [facility] Comment on above: Performed By: #### C BC #### [facility] [address] [place] [address] Dr. Moris Winter MANUAL DIFF REQ NO Normal [facility] Comment on above: Performed By: #### C BC #### [facility] [address] [place] [address] Dr. Moris Winter MCH (RBC) [Entitic mass] 27.5 pg Normal 26.7-34.0 [facility] Comment on above: Performed By: #### C BC #### [facility] [address] [place] [address] Dr. Moris Winter MCHC (RBC) [Mass/Vol] 33.6 g/dL Normal 29.9-35.2 [facility] Comment on above: Performed By: #### C BC #### [facility] [address] [place] [address] Dr. Moris Winter MCV (RBC) [Entitic vol] 81.7 fL Normal 81.0-99.0 [facility] Comment on above: Performed By: #### C BC #### [facility] [address] [place] [address] Dr. Moris Winter MONO # 0.7 103/ul Normal 0.3-0.8 [facility] Comment on above: Performed By: #### C BC #### [facility] [address] [place] [address] Dr. Moris Winter Monocytes/100 WBC (Bld) 7.8 % Normal 1.7-12.0 [facility] Comment on above: Performed By: #### C BC #### [facility] [address] [place] [address] Dr. Moris Winter NEUT # 5.8 103/ul Normal 1.4-6.5 [facility] Comment on above: Performed By: #### C BC #### [facility] [address] [place] [address] Dr. Moris Winter Neutrophils/100 WBC (Bld) 66.2 % Normal 43.0-75.0 [facility] Comment on above: Performed By: #### C BC #### [facility] [address] [place] [address] Dr. Moris Winter Platelet mean volume (Bld) [Entitic vol] 10.2 fL Normal 9.5-13.5 [facility] Comment on above: Performed By: #### C BC #### [facility] [address] [place] [address] Dr. Moris Winter PLT 301 103/ul Normal 150-450 [facility] Comment on above: Performed By: #### C BC #### [facility] [address] [place] [address] Dr. Moris Winter RBC 4.48 106/ul Normal 4.20-5.40 [facility] Comment on above: Performed By: #### C BC #### [facility] [address] [place] [address] Dr. Moris Winter WBC 8.7 103/ul Normal 4.0-11.0 [facility] Comment on above: Performed By: #### C BC #### [facility] [address] [place] [address] Dr. Moris Winter ER URINE PROFILEon 3 Bilirubin Ql (U) Negative Normal NEGATIVE [facility] Comment on above: Performed By: #### P REGU #### [facility] [address] [place] [address] Dr. Moris Winter Clarity (U) CLEAR Normal CLEAR [facility] Comment on above: Performed By: #### P REGU #### [facility] [address] [place] [address] Dr. Moris Winter Color (U) LT. YELLOW Normal YELLOW [facility] Comment on above: Performed By: #### P REGU #### [facility] [address] [place] [address] Dr. Moris Winter ERUAHD A micrscopic examina tion will be performed if indicated. Normal [facility] Comment on above: Performed By: #### P REGU #### [facility] [address] [place] [address] Dr. Moris Winter Glucose Ql (U) Negative Normal NEGATIVE [facility] Comment on above: Performed By: #### P REGU #### [facility] [address] [place] [address] Dr. Moris Winter Hemoglobin Ql (U) Negative Normal NEGATIVE [facility] Comment on above: Performed By: #### P REGU #### [facility] [address] [place] [address] Dr. Moris Winter Ketones Ql (U) TRACE Abnormal NEGATIVE [facility] Comment on above: Performed By: #### P REGU #### [facility] [address] [place] [address] Dr. Moris Winter LEUKOCYTES TRACE Abnormal NEGATIVE [facility] Comment on above: Performed By: #### P REGU #### [facility] [address] [place] [address] Dr. Moris Winter Nitrite Ql (U) Negative Normal NEGATIVE [facility] Comment on above: Performed By: #### P REGU #### [facility] [address] [place] [address] Dr. Moris Winter pH (U) 7.0 [pH] Normal 5-9 [facility] Comment on above: Performed By: #### P REGU #### [facility] [address] [place] [address] Dr. Moris Winter SPEC GRAVITY 1.020 Normal 1.005-<=1. 025 [facility] Comment on above: Performed By: #### P REGU #### [facility] [address] [place] [address] Dr. Moris Winter UA PROTEIN Negative Normal NEGATIVE/ TRACE [facility] Comment on above: Performed By: #### P REGU #### [facility] [address] [place] [address] Dr. Moris Winter UR MICRO IND INDICATED Normal [facility] Comment on above: Performed By: #### P REGU #### [facility] [address] [place] [address] Dr. Moris Winter Urobilinogen Qn (U) 0.2 {Marcin'U}/dL Normal 0.2 - 1. 0 [facility] Comment on above: Performed By: #### P REGU #### [facility] [address] [place] [address] Dr. Moris Winter LIPASEon 07-13-2022 Lipase [Catalytic activity/Vol] 204.0 U/L Normal 73.0-393.0 [facility] Comment on above: Performed By: #### C BC #### [facility] [address] [place] [address] Dr. Moris Winter PREG QUANT HCGon 07-13-2022 HCG QUANT 1455 mIU/mL Normal [facility] Comment on above: Performed By: #### P REGU #### [facility] [address] [place] [address] Dr. Moris Winter HCG RANGE SEE BELOW Normal [facility] Comment on above: Result Comment: 5-50 0.2-1 WEEK 50-500 1-2 WEEKS 100-5,000 2-3 WEEKS 500-10,000 3-4 WEEKS 1,000-50,000 4-5 WEEKS 10,000-100,000 5-6 WEEKS 15,000-200,000 6-8 WEEKS 10,000-100,000 2-3 MONTHS Performed By: #### P REGU #### [facility] [address] [place] [address] Dr. Moris Winter URon 07-13-2022 , QUAL Positive Abnormal NEGATIVE [facility] Comment on above: Performed By: #### P REGU #### [facility] [address] [place] [address] Dr. Moris Winter PROF 14(COMP METB)on 023 Albumin [Mass/Vol] 3.3 g/dL Critically low 3.4-5.0 [facility] Comment on above: Performed By: #### C BC #### [facility] [address] [place] [address] Dr. Moris Winter Albumin/Globulin [Mass ratio] 0.7 {ratio} Normal [facility] Comment on above: Performed By: #### C BC #### [facility] [address] [place] [address] Dr. Moris Winter ALP [Catalytic activity/Vol] 86 U/L Normal 46-116 [facility] Comment on above: Performed By: #### C BC #### [facility] [address] [address] [address] Moris Winter ALT [Catalytic activity/Vol] 16 U/L Normal 14-59 [facility] Comment on above: Performed By: #### C BC #### [facility] [address] [address] [address] Moris Winter Anion gap [Moles/Vol] 14.9 mmol/L Normal [facility] Comment on above: Performed By: #### C BC #### [facility] [address] [address] [address] Moris Winter AST [Catalytic activity/Vol] 12 U/L Critically low 15-37 [facility] Comment on above: Performed By: #### C BC #### [facility] [address] [place] [address] Dr. Moris Winter Bilirubin [Mass/Vol] 0.1 mg/dL Critically low 0.2-1.0 [facility] Comment on above: Performed By: #### C BC #### [facility] [address] [place] [address] Dr. Moris Winter Calcium [Mass/Vol] 9.3 mg/dL Normal 8.5-10.1 [facility] Comment on above: Performed By: #### C BC #### [facility] [address] [place] [address] Dr. Moris Winter Chloride [Moles/Vol] 103 mmol/L Normal 98-107 [facility] Comment on above: Performed By: #### C BC #### [facility] [address] [place] [address] Dr. Moris Winter CO2 [Moles/Vol] 25.4 mmol/L Normal 21.0-32.0 [facility] Comment on above: Performed By: #### C BC #### [facility] [address] [place] [address] Dr. Moris Winter Creatinine [Mass/Vol] 0.80 mg/dL Normal 0.55-1.02 [facility] Comment on above: Performed By: #### C BC #### [facility] [address] [place] [address] Dr. Moris Winter EGFR-AF NAMIBIAN >60 Normal >=60 [facility] Comment on above: Performed By: #### C BC #### [facility] [address] [place] [address] Dr. Moris Winter EGFR-NON AF NAMIBIAN >60 Normal >=60 [facility] Comment on above: Performed By: #### C BC #### [facility] [address] [place] [address] Dr. Moris Winter Globulin (S) [Mass/Vol] 4.6 g/dL Normal [facility] Comment on above: Performed By: #### C BC #### [facility] [address] [place] [address] Dr. Moris Winter Glucose [Mass/Vol] 111 mg/dL Critically high 74-106 [facility] Comment on above: Performed By: #### C BC #### [facility] [address] [place] [address] Dr. Moris Winter Potassium [Moles/Vol] 3.3 mmol/L Critically low 3.5-5.1 [facility] Comment on above: Performed By: #### C BC #### [facility] [address] [place] [address] Dr. Moris Winter Protein [Mass/Vol] 7.9 g/dL Normal 6.4-8.2 [facility] Comment on above: Performed By: #### C BC #### [facility] [address] [place] [address] Dr. Moris Winter Sodium [Moles/Vol] 140 mmol/L Normal 136-145 [facility] Comment on above: Performed By: #### C BC #### [facility] [address] [place] [address] Dr. Moris Winter Urea nitrogen [Mass/Vol] 10.0 mg/dL Normal 7.0-18.0 [facility] Comment on above: Performed By: #### C BC #### [facility] [address] [place] [address] Dr. Moris Winter Urea nitrogen/Creatinine [Mass ratio] 12.5 mg/mg Normal [facility] Comment on above: Performed By: #### C BC #### [facility] [address] [place] [address] Dr. Moris Winter URINE MICROSCOPIC ONLYon BACTERIA TRACE Abnormal NONE SEEN [facility] Comment on above: Performed By: #### P REGU #### [facility] [address] [place] [address] Dr. Moris Winter Bacteria identified Cx Nom (U) NOT INDICATED Normal [facility] Comment on above: Performed By: #### P REGU #### [facility] [address] [place] [address] Dr. Moris Winter CAST NONE SEEN Normal NONE SEEN [facility] Comment on above: Performed By: #### P REGU #### [facility] [address] [place] [address] Dr. Moris Winter Crystals LM Nom (Urine sed) NONE SEEN Normal NONE SEEN [facility] Comment on above: Performed By: #### P REGU #### [facility] [address] [place] [address] Dr. Moris Winter Epithelial cells LM Ql (Urine sed) FEW Abnormal NONE SEEN /RARE [facility] Comment on above: Performed By: #### P REGU #### [facility] [address] [place] [address] Dr. Moris Winter MUCOUS NONE SEEN Normal NONE SEEN [facility] Comment on above: Performed By: #### P REGU #### [facility] [address] [place] [address] Dr. Moris Winter RBC 0-2 Normal 0-2 [facility] Comment on above: Performed By: #### P REGU #### [facility] [address] [place] [address] Dr. Moris Winter WBC 2-5 Abnormal NONE SEEN [facility] Comment on above: Performed By: #### P REGU #### [facility] [address] [place] [address] Dr. Moris Winter Cholesterol [Mass/volume] in Serum or PlasmaOrdered By: Nataly Toure on 06-16-2022 Cholesterol [Mass/Vol] 189 mg/dL 140-200 [facility] [place] [facility] Comment on above: Chol less than 200 m g/dl low riskChol 201-239 mg/dl borderline riskChol 240 mg/dl and greater high risk Cholesterol in LDL Calc [Mas s/Vol]Ordered By: Nataly Toure on 06-16-2022 Cholesterol in LDL [Mass/Vol] 84 mg/dL 0-100 [facility] Comment on above: LDL ATP III CLASSIFI CATIONLDL less than 100 mg/dL OptimalLDL 100-129 mg/dL Near or above optimalLDL 130-159 mg/dL Borderline highLDL 160-189 mg/dL HighLDL greater than 189 mg/dL Very high Cholesterol in VLDL Calc [Ma ss/Vol]Ordered By: Nataly Toure on 06-16-2022 Cholesterol in VLDL [Mass/Vol] 54 mg/dL [facility] Serum or plasma high density lipoprotein (HDL) cholesterol measurementOrdered By: Nataly Toure on 06-16-2022 Cholesterol in HDL [Mass/Vol] 50 mg/dL 35-85 [facility] Comment on above: HDL CHOL ATP-III CLA SSIFICATION Cardiovascular RiskHDL > or equal to 60 mg/dL LOWHDL < 40 mg/dL HIGH Serum or plasma total choles terol/high density lipoprotein (HDL) cholesterol mass ratOrdered By: Nataly Toure on 06-16-2022 Cholesterol.total/Chol esterol in HDL [Mass ratio] 3.8 {ratio} <5.0 [facility] Triglyceride [Mass/volume] i n Serum or PlasmaOrdered By: Nataly Toure on 06-16-2022 Triglyceride [Mass/Vol] 273 mg/dL 0-149 [facility] Comment on above: TRIG ATP III CLASSIF ICATIONTRIG less than 150 mg/dL NormalTRIG 150-199 mg/dL Borderline highTRIG 200-500 mg/dL High TRIG greater than 500 mg/dL Very highStandard traceable to the Center for Disease Conrtrol and Prevention (CDC) test method. Alanine aminotransferase [En zymatic activity/volume] in Serum or PlasmaOrdered By: Nataly Toure on 06-04-2022 ALT [Catalytic activity/Vol] 7 U/L 7-52 [facility] Albumin [Mass/volume] in Ser um or Plasma by Bromocresol green (BCG) dye binding methoOrdered By: Nataly Toure on 06-04-2022 Albumin BCG dye [Mass/Vol] 3.8 g/dL 3.5-5.7 [facility] Alkaline phosphatase [Enzyma tic activity/volume] in Serum or PlasmaOrdered By: Nataly Jerniganc on 06-04-2022 ALP [Catalytic activity/Vol] 78 U/L 34-104 [facility] Amylase [Enzymatic activity/ volume] in Serum or PlasmaOrdered By: Nataly Jerniganc on 06-04-2022 Amylase [Catalytic activity/Vol] 29 U/L 29-103 [facility] Aspartate aminotransferase [ Enzymatic activity/volume] in Serum or PlasmaOrdered By: Nataly Toure on 06-04-2022 AST [Catalytic activity/Vol] 10 U/L 13-39 [facility] Basophils Auto (Bld) [#/Vol] Ordered By: Nataly Toure on 06-04-2022 Basophils (Bld) [#/Vol] 0.1 10*3/uL 0.0-0.2 [facility] Basophils/100 WBC Auto (Bld) Ordered By: Nataly Toure on 06-04-2022 Basophils/100 WBC (Bld) 1.4 % . [facility] Bilirubin.total [Mass/volume ] in Serum or PlasmaOrdered By: Nataly Toure on 06-04-2022 Bilirubin [Mass/Vol] 0.3 mg/dL 0.3-1.0 [facility] Calcium [Mass/volume] in Ser um or PlasmaOrdered By: Nataly Toure on 06-04-2022 Calcium [Mass/Vol] 9.3 mg/dL 8.6-10.3 [facility] Carbon dioxide, total [Moles /volume] in Serum or PlasmaOrdered By: Nataly Toure on 06-04-2022 CO2 [Moles/Vol] 29.6 mmol/L 21.0-31.0 [facility] Chloride [Moles/volume] in S rosa or PlasmaOrdered By: Nataly Toure on 06-04-2022 Chloride [Moles/Vol] 99 mmol/L 98-107 [facility] Creatinine [Mass/volume] in Serum or PlasmaOrdered By: Nataly Toure on 06-04-2022 Creatinine [Mass/Vol] 0.69 mg/dL 0.60-1.20 [facility] Eosinophils Auto (Bld) [#/Vo l]Ordered By: Nataly Toure on 06-04-2022 Eosinophils (Bld) [#/Vol] 0.2 10*3/uL 0.0-0.45 [facility] Eosinophils/100 WBC Auto (Bl d)Ordered By: Nataly Toure on 06-04-2022 Eosinophils/100 WBC (Bld) 1.8 % . [facility] Erythrocyte distribution wid th Auto (RBC) [Ratio]Ordered By: Nataly Toure on 06-04-2022 Erythrocyte distribution width (RBC) [Ratio] 14.6 % 11.9-15.3 [facility] Ferritin [Mass/volume] in Se rum or PlasmaOrdered By: Nataly Toure on 06-04-2022 Ferritin [Mass/Vol] 12.7 ng/mL 11.0-306.8 [facility] Globulin Calc (S) [Mass/Vol] Ordered By: Nataly Toure on 06-04-2022 Globulin (S) [Mass/Vol] 3.6 g/dL [facility] Glucose [Mass/volume] in Ser um or PlasmaOrdered By: Nataly Toure on 06-04-2022 Glucose [Mass/Vol] 103 mg/dL 70-100 [facility] Comment on above: ADA recommended refe rence rangeRandom Glucose Reference Range is dependent on time and content of last meal. Glucose of more than 200 mg/dL in a nonstressed, ambulatory subject supports the diagnosis of Diabetes Mellitus. Hematocrit Auto (Bld) [Volum e fraction]Ordered By: Nataly Toure on 06-04-2022 Hematocrit (Bld) [Volume fraction] 38.2 % 34.0-46.4 [facility] Hemoglobin [Mass/volume] in BloodOrdered By: Nataly Toure on 06-04-2022 Hemoglobin (Bld) [Mass/Vol] 12.7 g/dL 11.8-15.4 [facility] Leukocytes [#/volume] correc kee for nucleated erythrocytes in Blood by Automated counOrdered By: Nataly Toure on 06-04-2022 WBC corrected for nucl RBC Auto (Bld) [#/Vol] 8.7 10*3/uL 3.8-11.6 [facility] Lipase [Enzymatic activity/v olume] in Serum or PlasmaOrdered By: Nataly Toure on 06-04-2022 Lipase [Catalytic activity/Vol] 38.0 U/L 11.0-82.0 [facility] Lymphocytes Auto (Bld) [#/Vo l]Ordered By: Nataly Toure on 06-04-2022 Lymphocytes (Bld) [#/Vol] 1.7 10*3/uL 1.00-4.8 [facility] Lymphocytes/100 WBC Auto (Bl d)Ordered By: Nataly Toure on 06-04-2022 Lymphocytes/100 WBC (Bld) 19.7 % . [facility] MCH Auto (RBC) [Entitic mass ]Ordered By: Nataly Toure on 06-04-2022 MCH (RBC) [Entitic mass] 26.8 pg 24.7-34.3 [facility] MCHC Auto (RBC) [Mass/Vol]Or dered By: Nataly Toure on 06-04-2022 MCHC (RBC) [Mass/Vol] 33.2 g/dL 32.0-35.0 [facility] MCV Auto (RBC) [Entitic vol] Ordered By: Nataly Toure on 06-04-2022 MCV (RBC) [Entitic vol] 80.7 fL 80-100 [facility] Monocytes Auto (Bld) [#/Vol] Ordered By: Nataly Toure on 06-04-2022 Monocytes (Bld) [#/Vol] 0.5 10*3/uL 0.0-0.8 [facility] Monocytes/100 WBC Auto (Bld) Ordered By: Nataly Toure on 06-04-2022 Monocytes/100 WBC (Bld) 6.1 % . [facility] Neutrophils Auto (Bld) [#/Vo l]Ordered By: Nataly Toure on 06-04-2022 Neutrophils (Bld) [#/Vol] 6.2 10*3/uL 1.8-7.7 [facility] Neutrophils/100 WBC Auto (Bl d)Ordered By: Nataly Toure on 06-04-2022 Neutrophils/100 WBC (Bld) 71.0 % . [facility] No Panel InformationOrdered By: Nataly Toure on 06-04-2022 Estimated GFR (CKD-EPI) > 60.0 mL/Min [facility] Creatinine Clearance (Chem N/A [facility] Nucleated erythrocytes [Pres ence] in Blood by Automated countOrdered By: Nataly Toure on 06-04-2022 Nucleated RBC Auto Ql (Bld) 0.2 /100{WBC} 0-0.5 [facility] Platelet mean volume Auto (B ld) [Entitic vol]Ordered By: Nataly Toure on 06-04-2022 Platelet mean volume (Bld) [Entitic vol] 10.2 fL 6.3-10.7 [facility] Platelets Auto (Bld) [#/Vol] Ordered By: Nataly Toure on 06-04-2022 Platelets (Bld) [#/Vol] 245 10*3/uL 150-450 [facility] Potassium [Moles/volume] in Serum or PlasmaOrdered By: Nataly Toure on 06-04-2022 Potassium [Moles/Vol] 4.5 mmol/L 3.5-5.1 [facility] Protein [Mass/volume] in Ser um or PlasmaOrdered By: Nataly Toure on 06-04-2022 Protein [Mass/Vol] 7.4 g/dL 6.4-8.9 [facility] RBC Auto (Bld) [#/Vol]Ordere d By: Nataly Toure on 06-04-2022 RBC (Bld) [#/Vol] 4.73 10*6/uL 3.60-5.00 [facility] Serum or plasma albumin/glob ulin mass ratioOrdered By: Nataly Toure on 06-04-2022 Albumin/Globulin [Mass ratio] 1.1 {ratio} [facility] Serum or plasma anion gap de terminationOrdered By: Nataly Toure on 06-04-2022 Anion gap [Moles/Vol] 10.9 mmol/L 6.0-15.0 [facility] Serum or plasma insulin nikita urement (units/volume)Ordered By: Nataly Toure on 06-04-2022 Insulin Qn 128.0 u[iU]/mL 2.6-24.9 [facility] Comment on above: Performed at: [place] [id number] Director: Sam Lopez PhD, Phone: [phone] Sodium [Moles/volume] in Ser um or PlasmaOrdered By: Nataly Toure on 06-04-2022 Sodium [Moles/Vol] 135 mmol/L 136-145 [facility] Urea nitrogen [Mass/volume] in Serum or PlasmaOrdered By: Nataly Toure on 06-04-2022 Urea nitrogen [Mass/Vol] 9 mg/dL 7-25 [facility] WBC Auto (Bld) [#/Vol]Ordere d By: Nataly Toure on 06-04-2022 WBC (Bld) [#/Vol] 8.7 10*3/uL 3.8-11.6 [facility] AMYLASEon 06-03-2022 Amylase [Catalytic activity/Vol] 37 U/L Normal 25-115 [facility] Comment on above: Performed By: #### L IPA, CMP, KIM #### [facility] [address] [place] [address] [address] Moris Winter CBC AUTO DIFFon 06-03-2022 BASO # 0.0 103/ul Normal 0.0-0.1 [facility] Comment on above: Performed By: #### C BC #### [facility] [address] [address] [address] Moris Winter Basophils/100 WBC (Bld) 0.1 % Critically low 0.2-2.0 [facility] Comment on above: Performed By: #### C BC #### [facility] [address] [place] [address] Dr. Moris Winter EO # 0.1 103/ul Normal 0.0-0.7 [facility] Comment on above: Performed By: #### C BC #### [facility] [address] [place] [address] Dr. Moris Winter Eosinophils/100 WBC (Bld) 1.6 % Normal 0.9-7.0 [facility] Comment on above: Performed By: #### C BC #### [facility] [address] [place] [address] Dr. Moris Winter Erythrocyte distribution width (RBC) [Ratio] 13.5 % Normal 11.0-15.0 [facility] Comment on above: Performed By: #### C BC #### [facility] [address] [place] [address] Dr. Moris Winter Hematocrit (Bld) [Volume fraction] 36.3 % Normal 36.0-48.0 [facility] Comment on above: Performed By: #### C BC #### [facility] [address] [place] [address] Dr. Moris Winter Hemoglobin (Bld) [Mass/Vol] 11.8 g/dL Critically low 12.0-16.0 [facility] Comment on above: Performed By: #### C BC #### [facility] [address] [place] [address] Dr. Moris Winter IG # 0.03 10e3/ul Normal 0.00-0.03 [facility] Comment on above: Performed By: #### C BC #### [facility] [address] [place] [address] Dr. Moris Winter IG % 0.4 % Normal 0.0-0.5 [facility] Comment on above: Performed By: #### C BC #### [facility] [address] [place] [address] Dr. Moris Winter LYMPH # 2.5 103/ul Normal 1.2-3.8 [facility] Comment on above: Performed By: #### C BC #### [facility] [address] [place] [address] Dr. Moris Winter Lymphocytes/100 WBC (Bld) 33.2 % Normal 20.5-60.0 [facility] Comment on above: Performed By: #### C BC #### [facility] [address] [place] [address] Dr. Moris iWnter MANUAL DIFF REQ NO Normal [facility] Comment on above: Performed By: #### C BC #### [facility] [address] [place] [address] Dr. Moris Winter MCH (RBC) [Entitic mass] 26.2 pg Critically low 26.7-34.0 [facility] Comment on above: Performed By: #### C BC #### [facility] [address] [place] [address] Dr. Moris Winter MCHC (RBC) [Mass/Vol] 32.5 g/dL Normal 29.9-35.2 [facility] Comment on above: Performed By: #### C BC #### [facility] [address] [place] [address] Dr. Moris Winter MCV (RBC) [Entitic vol] 80.7 fL Critically low 81.0-99.0 [facility] Comment on above: Performed By: #### C BC #### [facility] [address] [place] [address] Dr. Moris Winter MONO # 0.7 103/ul Normal 0.3-0.8 [facility] Comment on above: Performed By: #### C BC #### [facility] [address] [place] [address] Dr. Moris Winter Monocytes/100 WBC (Bld) 9.9 % Normal 1.7-12.0 [facility] Comment on above: Performed By: #### C BC #### [facility] [address] [place] [address] Dr. Moris Winter NEUT # 4.1 103/ul Normal 1.4-6.5 [facility] Comment on above: Performed By: #### C BC #### [facility] [address] [place] [address] Dr. Moris Winter Neutrophils/100 WBC (Bld) 54.8 % Normal 43.0-75.0 [facility] Comment on above: Performed By: #### C BC #### [facility] [address] [place] [address] Dr. Moris Winter Platelet mean volume (Bld) [Entitic vol] 10.7 fL Normal 9.5-13.5 [facility] Comment on above: Performed By: #### C BC #### [facility] [address] [place] [address] Dr. Moris Winter PLT 248 103/ul Normal 150-450 [facility] Comment on above: Performed By: #### C BC #### [facility] [address] [place] [address] Dr. Moris Winter RBC 4.50 106/ul Normal 4.20-5.40 [facility] Comment on above: Performed By: #### C BC #### [facility] [address] [place] [address] Dr. Moris Winter WBC 7.5 103/ul Normal 4.0-11.0 [facility] Comment on above: Performed By: #### C BC #### [facility] [address] [place] [address] ABD/PELV W CONon [...] NANCI COULTER Date: 2022-06-03 02:19 Normal [facility] ER URINE PROFILEon 3 Bilirubin Ql (U) Negative Normal NEGATIVE [facility] Comment on above: Performed By: #### C BC #### [facility] [address] [place] [address] Dr. Moris Winter Clarity (U) CLEAR Normal CLEAR [facility] Comment on above: Performed By: #### C BC #### [facility] [address] [place] [address] Dr. Moris Winter Color (U) LT. YELLOW Normal YELLOW [facility] Comment on above: Performed By: #### C BC #### [facility] [address] [place] [address] Dr. Moris Winter ERUAHD A micrscopic examina tion will be performed if indicated. Normal [facility] Comment on above: Performed By: #### C BC #### [facility] [address] [place] [address] Dr. Moris Winter Glucose Ql (U) Negative Normal NEGATIVE [facility] Comment on above: Performed By: #### C BC #### [facility] [address] [place] [address] Dr. Moris Winter Hemoglobin Ql (U) Negative Normal NEGATIVE [facility] Comment on above: Performed By: #### C BC #### [facility] [address] [address] [address] Moris Winter Ketones Ql (U) Negative Normal NEGATIVE [facility] Comment on above: Performed By: #### C BC #### [facility] [address] [place] [address] Dr. Moris Winter LEUKOCYTES Negative Normal NEGATIVE [facility] Comment on above: Performed By: #### C BC #### [facility] [address] [place] [address] Dr. Moris Winter Nitrite Ql (U) Negative Normal NEGATIVE [facility] Comment on above: Performed By: #### C BC #### [facility] [address] [place] [address] Dr. Moris Winter pH (U) 7.0 [pH] Normal 5-9 [facility] Comment on above: Performed By: #### C BC #### [facility] [address] [place] [address] Dr. Moris Winter SPEC GRAVITY 1.015 Normal 1.005-<=1. 025 [facility] Comment on above: Performed By: #### C BC #### [facility] [address] [place] [address] Dr. Moris Winter UA PROTEIN Negative Normal NEGATIVE/ TRACE [facility] Comment on above: Performed By: #### C BC #### [facility] [address] [place] [address] Dr. Moris Winter UR MICRO IND NOT INDICATED Normal [facility] Comment on above: Performed By: #### C BC #### [facility] [address] [place] [address] Dr. Moris Winter Urobilinogen Qn (U) 1.0 {Marcin'U}/dL Normal 0.2 - 1. 0 [facility] Comment on above: Performed By: #### C BC #### [facility] [address] [place] [address] Dr. Moris Winter LACTATE/LACTIC ACIDon 2022 Lactate [Moles/Vol] 1.0 mmol/L Normal 0.4-2.0 [facility] Comment on above: Performed By: #### L ACT #### [facility] [address] [place] [address] Dr. Moris Winter LIPASEon 06-03-2022 Lipase [Catalytic activity/Vol] 112.0 U/L Normal 73.0-393.0 [facility] Comment on above: Performed By: #### L IPA, CMP, KIM #### [facility] [address] [place] [address] Dr. Moris Winter URon 06-03-2022 , QUAL Negative Normal NEGATIVE [facility] Comment on above: Performed By: #### P REGU #### [facility] [address] [place] [address] Dr. Moris Winter PROF 14(COMP METB)on 023 Albumin [Mass/Vol] 2.9 g/dL Critically low 3.4-5.0 [facility] Comment on above: Performed By: #### L IPA, CMP, KIM #### [facility] [address] [place] [address] Dr. Moris Winter Albumin/Globulin [Mass ratio] 0.6 {ratio} Normal [facility] Comment on above: Performed By: #### L IPA, CMP, KIM #### [facility] [address] [place] [address] Dr. Moris Winter ALP [Catalytic activity/Vol] 86 U/L Normal 46-116 [facility] Comment on above: Performed By: #### L IPA, CMP, KIM #### [facility] [address] [place] [address] Dr. Moris Winter ALT [Catalytic activity/Vol] 14 U/L Normal 14-59 [facility] Comment on above: Performed By: #### L IPA, CMP, KIM #### [facility] [address] [place] [address] Dr. Moris Winter Anion gap [Moles/Vol] 10.9 mmol/L Normal [facility] Comment on above: Performed By: #### L IPA, CMP, KIM #### [facility] [address] [place] [address] Dr. Moris Winter AST [Catalytic activity/Vol] 12 U/L Critically low 15-37 [facility] Comment on above: Performed By: #### L IPA, CMP, KIM #### [facility] [address] [place] [address] Dr. Moris Winter Bilirubin [Mass/Vol] 0.2 mg/dL Normal 0.2-1.0 [facility] Comment on above: Performed By: #### L IPA, CMP, KIM #### [facility] [address] [place] [address] Dr. Moris Winter Calcium [Mass/Vol] 9.0 mg/dL Normal 8.5-10.1 [facility] Comment on above: Performed By: #### L IPA, CMP, KIM #### [facility] [address] [place] [address] Dr. Moris Winter Chloride [Moles/Vol] 102 mmol/L Normal 98-107 [facility] Comment on above: Performed By: #### L IPA, CMP, KIM #### [facility] [address] [place] [address] Dr. Moris Winter CO2 [Moles/Vol] 29.6 mmol/L Normal 21.0-32.0 [facility] Comment on above: Performed By: #### L IPA, CMP, KIM #### [facility] [address] [place] [address] Dr. Moris Winter Creatinine [Mass/Vol] 0.73 mg/dL Normal 0.55-1.02 [facility] Comment on above: Performed By: #### L IPA, CMP, KIM #### [facility] [address] [place] [address] Dr. Moris Winter EGFR-AF NAMIBIAN >60 Normal >=60 [facility] Comment on above: Performed By: #### L IPA, CMP, KIM #### [facility] [address] [place] [address] Dr. Moris Winter EGFR-NON AF NAMIBIAN >60 Normal >=60 [facility] Comment on above: Performed By: #### L IPA, CMP, KIM #### [facility] [address] [place] [address] Dr. Moris Winter Globulin (S) [Mass/Vol] 4.8 g/dL Normal [facility] Comment on above: Performed By: #### L IPA CMP, KIM #### [facility] [address] [place] [address] Dr. Moris Winter Glucose [Mass/Vol] 121 mg/dL Critically high 74-106 [facility] Comment on above: Performed By: #### L IPA CMP, KIM #### [facility] [address] [place] [address] Dr. Moris Winter Potassium [Moles/Vol] 3.5 mmol/L Normal 3.5-5.1 [facility] Comment on above: Performed By: #### L IPA CMP, KIM #### [facility] [address] [place] [address] Dr. Moris Winter Protein [Mass/Vol] 7.7 g/dL Normal 6.4-8.2 [facility] Comment on above: Performed By: #### L IPA CMP, KIM #### [facility] [address] [place] [address] Dr. Moris Winter Sodium [Moles/Vol] 139 mmol/L Normal 136-145 [facility] Comment on above: Performed By: #### L IPA CMP, KIM #### [facility] [address] [place] [address] Dr. Moris Winter Urea nitrogen [Mass/Vol] 11.0 mg/dL Normal 7.0-18.0 [facility] Comment on above: Performed By: #### L IPA CMP, KIM #### [facility] [address] [place] [address] Dr. Moris Winter Urea nitrogen/Creatinine [Mass ratio] 15.1 mg/mg Normal [facility] Comment on above: Performed By: #### L IPA CMP, KIM #### [facility] [address] [place] [address] Dr. Moris Winter Alanine aminotransferase [En zymatic activity/volume] in Serum or PlasmaOrdered By: Nataly Toure on 05-28-2022 ALT [Catalytic activity/Vol] 10 U/L [facility] Albumin [Mass/volume] in Ser um or Plasma by Bromocresol green (BCG) dye binding methoOrdered By: Nataly Toure on 05-28-2022 Albumin BCG dye [Mass/Vol] 3.9 g/dL 3.5-5.7 [facility] Alkaline phosphatase [Enzyma tic activity/volume] in Serum or PlasmaOrdered By: Nataly Jerniganc on 05-28-2022 ALP [Catalytic activity/Vol] 87 U/L 34-104 [facility] Aspartate aminotransferase [ Enzymatic activity/volume] in Serum or PlasmaOrdered By: Nataly Jerniganc on 05-28-2022 AST [Catalytic activity/Vol] 11 U/L 13-39 [facility] Basophils Auto (Bld) [#/Vol] Ordered By: Nataly Toure on 05-28-2022 Basophils (Bld) [#/Vol] 0.0 10*3/uL 0.0-0.2 [facility] Basophils/100 WBC Auto (Bld) Ordered By: Nataly Toure on 05-28-2022 Basophils/100 WBC (Bld) 0.6 % . [facility] Bilirubin.total [Mass/volume ] in Serum or PlasmaOrdered By: Nataly Toure on 05-28-2022 Bilirubin [Mass/Vol] 0.4 mg/dL 0.3-1.0 [facility] Calcium [Mass/volume] in Ser um or PlasmaOrdered By: Nataly Toure on 05-28-2022 Calcium [Mass/Vol] 9.1 mg/dL 8.6-10.3 [facility] Carbon dioxide, total [Moles /volume] in Serum or PlasmaOrdered By: Nataly Toure on 05-28-2022 CO2 [Moles/Vol] 27.6 mmol/L 21.0-31.0 [facility] Chloride [Moles/volume] in S rosa or PlasmaOrdered By: Nataly Jerniganc on 05-28-2022 Chloride [Moles/Vol] 102 mmol/L 98-107 [facility] Cholesterol [Mass/volume] in Serum or PlasmaOrdered By: Nataly Jerniganc on 05-28-2022 Cholesterol [Mass/Vol] 269 mg/dL 140-200 [facility] [place] [facility] Comment on above: Chol less than 200 m g/dl low riskChol 201-239 mg/dl borderline riskChol 240 mg/dl and greater high risk Cholesterol in LDL Calc [Mas s/Vol]Ordered By: Nataly Toure on 05-28-2022 Cholesterol in LDL [Mass/Vol] TNP [facility] Comment on above: Test not performed Cholesterol in LDL [Mass/vol ume] in Serum or PlasmaOrdered By: Nataly Toure on 05-28-2022 Cholesterol in LDL [Mass/Vol] 82 mg/dL 0-100 [facility] Comment on above: LDL ATP III CLASSIFI CATIONLDL less than 100 mg/dL OptimalLDL 100-129 mg/dL Near or above optimalLDL 130-159 mg/dL Borderline highLDL 160-189 mg/dL HighLDL greater than 189 mg/dL Very high Cholesterol in VLDL Calc [Ma ss/Vol]Ordered By: Nataly Toure on 05-28-2022 Cholesterol in VLDL [Mass/Vol] 187 mg/dL [facility] Creatinine [Mass/volume] in Serum or PlasmaOrdered By: Nataly Toure on 05-28-2022 Creatinine [Mass/Vol] 0.68 mg/dL 0.60-1.20 [facility] Eosinophils Auto (Bld) [#/Vo l]Ordered By: Nataly Toure on 05-28-2022 Eosinophils (Bld) [#/Vol] 0.2 10*3/uL 0.0-0.45 [facility] Eosinophils/100 WBC Auto (Bl d)Ordered By: Nataly Toure on 05-28-2022 Eosinophils/100 WBC (Bld) 2.1 % . [facility] Erythrocyte distribution wid th Auto (RBC) [Ratio]Ordered By: Nataly Toure on 05-28-2022 Erythrocyte distribution width (RBC) [Ratio] 14.5 % 11.9-15.3 [facility] Free thyroxine indexOrdered By: Nataly Toure on 05-28-2022 Free T4 index Calc [Mass/Vol] 2.9 1.2-4.9 [facility] Globulin Calc (S) [Mass/Vol] Ordered By: Nataly Toure on 05-28-2022 Globulin (S) [Mass/Vol] 3.6 g/dL [facility] Glucose [Mass/volume] in Ser um or PlasmaOrdered By: Nataly Toure on 05-28-2022 Glucose [Mass/Vol] 95 mg/dL 70-100 [facility] Comment on above: ADA recommended refe rence rangeRandom Glucose Reference Range is dependent on time and content of last meal. Glucose of more than 200 mg/dL in a nonstressed, ambulatory subject supports the diagnosis of Diabetes Mellitus. Glucose mean value [Mass/vol ume] in Blood Estimated from glycated hemoglobinOrdered By: Nataly Toure on 05-28-2022 Average glucose Estimated from glycated hemoglobin (Bld) [Mass/Vol] 111 mg/dL [facility] Hematocrit Auto (Bld) [Volum e fraction]Ordered By: Nataly Toure on 05-28-2022 Hematocrit (Bld) [Volume fraction] 38.2 % 34.0-46.4 [facility] Hemoglobin A1c percentageOrd ered By: Nataly Toure on 05-28-2022 HbA1c (Bld) [Mass fraction] 5.5 % 4.3-5.6 [facility] Comment on above: Increased risk for d iabetes: 5.7 - 6.4diabetes: >6.4glycemic control for adults with diabetes: <7.0 Hemoglobin [Mass/volume] in BloodOrdered By: Nataly Toure on 05-28-2022 Hemoglobin (Bld) [Mass/Vol] 12.9 g/dL 11.8-15.4 [facility] Iron [Mass/volume] in Serum or PlasmaOrdered By: Nataly Toure on 05-28-2022 Iron [Mass/Vol] 30 ug/dL 50-212 [facility] Iron binding capacity [Mass/ volume] in Serum or PlasmaOrdered By: Nataly Toure on 05-28-2022 Iron binding capacity [Mass/Vol] 449 ug/dL 255-450 [facility] Iron saturation [Mass Fracti on] in Serum or PlasmaOrdered By: Nataly Toure on 05-28-2022 Iron saturation [Mass fraction] 6.7 % 20-50 [facility] Leukocytes [#/volume] correc kee for nucleated erythrocytes in Blood by Automated counOrdered By: Nataly Toure on 05-28-2022 WBC corrected for nucl RBC Auto (Bld) [#/Vol] 7.3 10*3/uL 3.8-11.6 [facility] Lymphocytes Auto (Bld) [#/Vo l]Ordered By: Nataly Toure on 05-28-2022 Lymphocytes (Bld) [#/Vol] 1.9 10*3/uL 1.00-4.8 [facility] Lymphocytes/100 WBC Auto (Bl d)Ordered By: Nataly Toure on 05-28-2022 Lymphocytes/100 WBC (Bld) 26.6 % . [facility] MCH Auto (RBC) [Entitic mass ]Ordered By: Nataly Toure on 05-28-2022 MCH (RBC) [Entitic mass] 26.9 pg 24.7-34.3 [facility] MCHC Auto (RBC) [Mass/Vol]Or dered By: Nataly Toure on 05-28-2022 MCHC (RBC) [Mass/Vol] 33.8 g/dL 32.0-35.0 [facility] MCV Auto (RBC) [Entitic vol] Ordered By: Nataly Toure on 05-28-2022 MCV (RBC) [Entitic vol] 79.6 fL 80-100 [facility] Monocytes Auto (Bld) [#/Vol] Ordered By: Nataly Toure on 05-28-2022 Monocytes (Bld) [#/Vol] 0.6 10*3/uL 0.0-0.8 [facility] Monocytes/100 WBC Auto (Bld) Ordered By: Nataly Toure on 05-28-2022 Monocytes/100 WBC (Bld) 7.7 % . [facility] Neutrophils Auto (Bld) [#/Vo l]Ordered By: Nataly Toure on 05-28-2022 Neutrophils (Bld) [#/Vol] 4.6 10*3/uL 1.8-7.7 [facility] Neutrophils/100 WBC Auto (Bl d)Ordered By: Nataly Toure on 05-28-2022 Neutrophils/100 WBC (Bld) 63.0 % . [facility] No Panel InformationOrdered By: Nataly Toure on 05-28-2022 Estimated GFR (CKD-EPI) > 60.0 mL/Min [facility] Free Thyroxine (T4) Direct 10.8 ug/dL 4.5-12.0 [facility] Creatinine Clearance (Chem N/A [facility] Nucleated erythrocytes [Pres ence] in Blood by Automated countOrdered By: Nataly Toure on 05-28-2022 Nucleated RBC Auto Ql (Bld) 0.4 /100{WBC} 0-0.5 [facility] Platelet mean volume Auto (B ld) [Entitic vol]Ordered By: Nataly Toure on 05-28-2022 Platelet mean volume (Bld) [Entitic vol] 9.0 fL 6.3-10.7 [facility] Platelets Auto (Bld) [#/Vol] Ordered By: Nataly Toure on 05-28-2022 Platelets (Bld) [#/Vol] 247 10*3/uL 150-450 [facility] Potassium [Moles/volume] in Serum or PlasmaOrdered By: Nataly Toure on 05-28-2022 Potassium [Moles/Vol] 3.8 mmol/L 3.5-5.1 [facility] Protein [Mass/volume] in Ser um or PlasmaOrdered By: Nataly Toure on 05-28-2022 Protein [Mass/Vol] 7.5 g/dL 6.4-8.9 [facility] RBC Auto (Bld) [#/Vol]Ordere d By: Nataly Toure on 05-28-2022 RBC (Bld) [#/Vol] 4.80 10*6/uL 3.60-5.00 [facility] Serum or plasma albumin/glob ulin mass ratioOrdered By: Nataly Toure on 05-28-2022 Albumin/Globulin [Mass ratio] 1.1 {ratio} [facility] Serum or plasma anion gap de terminationOrdered By: Nataly Toure on 05-28-2022 Anion gap [Moles/Vol] 12.2 mmol/L 6.0-15.0 [facility] Serum or plasma high density lipoprotein (HDL) cholesterol measurementOrdered By: Nataly Toure on 05-28-2022 Cholesterol in HDL [Mass/Vol] 42 mg/dL 35-85 [facility] Comment on above: HDL CHOL ATP-III CLA SSIFICATION Cardiovascular RiskHDL > or equal to 60 mg/dL LOWHDL < 40 mg/dL HIGH Serum or plasma thyroperoxid ase antibody assay (units/volume)Ordered By: Nataly Toure on 05-28-2022 TPO Ab Qn [IU]/mL 0-34 [facility] Comment on above: Performed at: [place] [id number] Director: Sam Lopez PhD, Phone: [phone] Serum or plasma total choles terol/high density lipoprotein (HDL) cholesterol mass ratOrdered By: Nataly Toure on 05-28-2022 Cholesterol.total/Chol esterol in HDL [Mass ratio] 6.4 {ratio} <5.0 [facility] Sodium [Moles/volume] in Ser um or PlasmaOrdered By: Nataly Toure on 05-28-2022 Sodium [Moles/Vol] 138 mmol/L 136-145 [facility] TSH DL <= 0.005 mIU/L QnOrde red By: Nataly Toure on 05-28-2022 TSH Qn 2.330 m[IU]/L 0.450-4.50 0 [facility] Transferrin [Mass/volume] in Serum or PlasmaOrdered By: Nataly Toure on 05-28-2022 Transferrin [Mass/Vol] 321 mg/dL 203-362 [facility] Triglyceride [Mass/volume] i n Serum or PlasmaOrdered By: Nataly Toure on 05-28-2022 Triglyceride [Mass/Vol] 939 mg/dL 0-149 [facility] Comment on above: If the triglyceride [...] on 05-28-2022 T3 [Mass/Vol] 186 ng/dL 71-180 [facility] Triiodothyronine (T3) resin uptake testOrdered By: Nataly Toure on 05-28-2022 T3RU 27 % 24-39 [facility] Urea nitrogen [Mass/volume] in Serum or PlasmaOrdered By: Nataly Toure on 05-28-2022 Urea nitrogen [Mass/Vol] 11 mg/dL 7-25 [facility] WBC Auto (Bld) [#/Vol]Ordere d By: Nataly Toure on 05-28-2022 WBC (Bld) [#/Vol] 7.3 10*3/uL 3.8-11.6 [facility] XR LSPINE 2_3 VIEWSon 2022 XR LSPINE [...] PILI MIGUEL Date: 2022-03-15 22:49 Normal [facility] CBC AUTO DIFFon 03-15-2022 BASO # 0.0 103/ul Normal 0.0-0.1 [facility] Comment on above: Performed By: #### P REGU #### [facility] [address] [place] [address] [address] Moris Winter Basophils/100 WBC (Bld) 0.1 % Critically low 0.2-2.0 [facility] Comment on above: Performed By: #### P REGU #### [facility] [address] [place] [address] Dr. Moris Winter EO # 0.1 103/ul Normal 0.0-0.7 [facility] Comment on above: Performed By: #### P REGU #### [facility] [address] [place] [address] Dr. Moris Winter Eosinophils/100 WBC (Bld) 0.8 % Critically low 0.9-7.0 [facility] Comment on above: Performed By: #### P REGU #### [facility] [address] [place] [address] Dr. Moris Winter Erythrocyte distribution width (RBC) [Ratio] 13.3 % Normal 11.0-15.0 [facility] Comment on above: Performed By: #### P REGU #### [facility] [address] [place] [address] Dr. Moris Winter Hematocrit (Bld) [Volume fraction] 37.4 % Normal 36.0-48.0 [facility] Comment on above: Performed By: #### P REGU #### [facility] [address] [place] [address] Dr. Moris Winter Hemoglobin (Bld) [Mass/Vol] 13.2 g/dL Normal 12.0-16.0 [facility] Comment on above: Performed By: #### P REGU #### [facility] [address] [place] [address] Dr. Moris Winter IG # 0.02 10e3/ul Normal 0.00-0.03 [facility] Comment on above: Performed By: #### P REGU #### [facility] [address] [place] [address] Dr. Moris Winter IG % 0.2 % Normal 0.0-0.5 [facility] Comment on above: Performed By: #### P REGU #### [facility] [address] [place] [address] Dr. Moris Winter LYMPH # 1.2 103/ul Normal 1.2-3.8 [facility] Comment on above: Performed By: #### P REGU #### [facility] [address] [address] [address] Moris Winter Lymphocytes/100 WBC (Bld) 14.6 % Critically low 20.5-60.0 [facility] Comment on above: Performed By: #### P REGU #### [facility] [address] [place] [address] Dr. Moris Winter MANUAL DIFF REQ NO Normal [facility] Comment on above: Performed By: #### P REGU #### [facility] [address] [place] [address] Dr. Moris Winter MCH (RBC) [Entitic mass] 27.3 pg Normal 26.7-34.0 [facility] Comment on above: Performed By: #### P REGU #### [facility] [address] [place] [address] Dr. Moris Winter MCHC (RBC) [Mass/Vol] 35.3 g/dL Critically high 29.9-35.2 [facility] Comment on above: Performed By: #### P REGU #### [facility] [address] [place] [address] Dr. Moris Winter MCV (RBC) [Entitic vol] 77.3 fL Critically low 81.0-99.0 [facility] Comment on above: Performed By: #### P REGU #### [facility] [address] [place] [address] Dr. Moris Winter MONO # 0.5 103/ul Normal 0.3-0.8 [facility] Comment on above: Performed By: #### P REGU #### [facility] [address] [place] [address] Dr. Moris Winter Monocytes/100 WBC (Bld) 5.4 % Normal 1.7-12.0 [facility] Comment on above: Performed By: #### P REGU #### [facility] [address] [place] [address] Dr. Moris Winter NEUT # 6.5 103/ul Normal 1.4-6.5 [facility] Comment on above: Performed By: #### P REGU #### [facility] [address] [address] [address] Moris Winter Neutrophils/100 WBC (Bld) 78.9 % Critically high 43.0-75.0 [facility] Comment on above: Performed By: #### P REGU #### [facility] [address] [place] [address] Dr. Moris Winter Platelet mean volume (Bld) [Entitic vol] 10.1 fL Normal 9.5-13.5 [facility] Comment on above: Performed By: #### P REGU #### [facility] [address] [place] [address] [address] Moris Winter PLT 256 103/ul Normal 150-450 [facility] Comment on above: Performed By: #### P REGU #### [facility] [address] [place] [address] Dr. Moris Winter RBC 4.84 106/ul Normal 4.20-5.40 [facility] Comment on above: Performed By: #### P REGU #### [facility] [address] [place] [address] Dr. Moris Winter WBC 8.3 103/ul Normal 4.0-11.0 [facility] Comment on above: Performed By: #### P REGU #### [facility] [address] [place] [address] Dr. Moris Winter CRPon 03-15-2022 CRP 3.3 mg/dL Critically high <=1.0 [facility] Comment on above: Performed By: #### B MP, CRP #### [facility] [address] [place] [address] Dr. Moris Winter URon 03-15-2022 , QUAL Negative Normal NEGATIVE [facility] Comment on above: Performed By: #### P REGU #### [facility] [address] [place] [address] Dr. Moris Winter PROF CHEM 8 (BAS METB)on Anion gap [Moles/Vol] 15.8 mmol/L Normal [facility] Comment on above: Performed By: #### B MP, CRP #### [facility] [address] [address] [address] Moris Winter Calcium [Mass/Vol] 8.6 mg/dL Normal 8.5-10.1 [facility] Comment on above: Performed By: #### B MP, CRP #### [facility] [address] [address] [address] Moris Winter Chloride [Moles/Vol] 98 mmol/L Normal 98-107 [facility] Comment on above: Performed By: #### B MP, CRP #### [facility] [address] [address] [address] Moris Winter CO2 [Moles/Vol] 26.7 mmol/L Normal 21.0-32.0 [facility] Comment on above: Performed By: #### B MP, CRP #### [facility] [address] [place] [address] Dr. Moris Winter Creatinine [Mass/Vol] 0.80 mg/dL Normal 0.55-1.02 [facility] Comment on above: Performed By: #### B MP, CRP #### [facility] [address] [place] [address] Dr. Moris Winter EGFR-AF NAMIBIAN >60 Normal >=60 [facility] Comment on above: Performed By: #### B MP, CRP #### [facility] [address] [address] [address] Moris Winter EGFR-NON AF NAMIBIAN >60 Normal >=60 [facility] Comment on above: Performed By: #### B MP, CRP #### [facility] [address] [place] [address] [address] Moris Winter Glucose [Mass/Vol] 103 mg/dL Normal 74-106 [facility] Comment on above: Performed By: #### B MP, CRP #### [facility] [address] [address] [address] Moris Winter Potassium [Moles/Vol] 3.5 mmol/L Normal 3.5-5.1 [facility] Comment on above: Performed By: #### B MP, CRP #### [facility] [address] [address] [address] Moris Winter Sodium [Moles/Vol] 137 mmol/L Normal 136-145 [facility] Comment on above: Performed By: #### B MP, CRP #### [facility] [address] [place], [place] [address] Dr. Moris Winter Urea nitrogen [Mass/Vol] 15.0 mg/dL Normal 7.0-18.0 [facility] Comment on above: Performed By: #### B MP, CRP #### [facility] [address] [place] [address] [address] Moris Winter Urea nitrogen/Creatinine [Mass ratio] 18.8 mg/mg Normal [facility] Comment on above: Performed By: #### B MP, CRP #### [facility] [address] [address] [address] Moris Winter SED RATE [facility] 2022 SED RATE 51 mm/hr Critically high <=20 [facility] Comment on above: Performed By: #### P REGU #### [facility] [address] [address] [address] Moris Winter Amphetamine Screen Ql (U)Ord ered By: TELMA Smith on 10-18-2021 Amphetamines Ql (U) Negative Negative [facility] Automated erythrocytes count in urine sediment (number/area)Ordered By: TELMA Smith on 10-18-2021 RBC Auto (Urine sed) [#/Area] 1-2 [HPF] 0-4 [facility] Automated leukocytes count i n urine sediment (number/area)Ordered By: TELMA Smith on 10-18-2021 WBC Auto (Urine sed) [#/Area] 20-49 [HPF] 0-4 [facility] Barbiturates [Presence] in U rineOrdered By: TELMA Smith on 10-18-2021 Barbiturates Ql (U) Negative Negative [facility] Basophils Auto (Bld) [#/Vol] Ordered By: TELMA Smith on 10-18-2021 Basophils (Bld) [#/Vol] 0.0 10*3/uL 0.0-0.2 [facility] Basophils/100 WBC Auto (Bld) Ordered By: TELMA Smith on 10-18-2021 Basophils/100 WBC (Bld) 0.3 % . [facility] Benzodiazepines [Presence] i n UrineOrdered By: TELMA Smith on 10-18-2021 Benzodiazepines Ql (U) Negative [facility] Bilirubin Test strip Ql (U)O rdered By: TELMA Smith on 10-18-2021 Bilirubin Ql (U) Negative Negative [facility] Blood hemoglobin measurement (mass/volume)Ordered By: TELMA Smith on 10-18-2021 Hemoglobin (Bld) [Mass/Vol] 11.3 g/dL 11.8-15.4 [facility] Blood leukocytes automated c ount (number/volume)Ordered By: TELMA Smith on 10-18-2021 WBC (Bld) [#/Vol] 10.1 10*3/uL 4.5-11.0 [facility] COVID-19 SOFIAOrdered By: MD DESEAN Smith on 10-18-2021 SARS-CoV+SARS-CoV-2 (COVID-19) Ag IA.rapid Ql (Resp) Negative Negative [facility] Comment on above: This is a duplicate [place] SARS Antigen (AUTUMN) result to be used for statistical tracking purpose only. Color Auto (U)Ordered By: MD DESEAN Smith on 10-18-2021 Color (U) Yellow Yellow [facility] Eosinophils Auto (Bld) [#/Vo l]Ordered By: TELMA Smith on 10-18-2021 Eosinophils (Bld) [#/Vol] 0.1 10*3/uL 0.0-0.45 [facility] Eosinophils/100 WBC Auto (Bl d)Ordered By: TELMA Smith on 10-18-2021 Eosinophils/100 WBC (Bld) 1.3 % . [facility] Erythrocyte distribution wid th Auto (RBC) [Ratio]Ordered By: TELMA Smith on 10-18-2021 Erythrocyte distribution width (RBC) [Ratio] 15.6 % 11.9-15.3 [facility] Hematocrit Auto (Bld) [Volum e fraction]Ordered By: TELMA Smith on 10-18-2021 Hematocrit (Bld) [Volume fraction] 34.9 % 34.0-46.4 [facility] Ketones Auto test strip (U) [Mass/Vol]Ordered By: TELMA Smith on 10-18-2021 Ketones (U) [Mass/Vol] Trace Negative [facility] - Drug toxicology Ordered By: TELMA Smith on 10-18-2021 Opiates Ql (U) Negative Negative [facility] - Hematology and Cell countsOrdered By: TELMA Smith on 10-18-2021 Nucleated RBC/100 WBC (Bld) [Ratio] 0.1 % 0-0.5 [facility] - UrinalysisOrder ed By: TELMA Smith on 10-18-2021 Hyaline casts LM Ql (Urine sed) 9-19 [LPF] 0-8 [facility] Lymphocytes Auto (Bld) [#/Vo l]Ordered By: TELMA Smith on 10-18-2021 Lymphocytes (Bld) [#/Vol] 1.7 10*3/uL 1.00-4.8 [facility] Lymphocytes/100 WBC Auto (Bl d)Ordered By: TELMA Smith on 10-18-2021 Lymphocytes/100 WBC (Bld) 17.0 % . [facility] MCH Auto (RBC) [Entitic mass ]Ordered By: TELMA Smith on 10-18-2021 MCH (RBC) [Entitic mass] 25.9 pg 24.7-34.3 [facility] MCHC Auto (RBC) [Mass/Vol]Or dered By: TELMA Smith on 10-18-2021 MCHC (RBC) [Mass/Vol] 32.5 g/dL 32.0-35.0 [facility] MCV Auto (RBC) [Entitic vol] Ordered By: TELMA Smith on 10-18-2021 MCV (RBC) [Entitic vol] 79.6 fL 80-100 [facility] Monocytes Auto (Bld) [#/Vol] Ordered By: TELMA Smith on 10-18-2021 Monocytes (Bld) [#/Vol] 0.8 10*3/uL 0.0-0.8 [facility] Monocytes/100 WBC Auto (Bld) Ordered By: TELMA Smith on 10-18-2021 Monocytes/100 WBC (Bld) 8.1 % . [facility] Neutrophils Auto (Bld) [#/Vo l]Ordered By: TELMA Smith on 10-18-2021 Neutrophils (Bld) [#/Vol] 7.4 10*3/uL 1.8-7.7 [facility] Neutrophils/100 WBC Auto (Bl d)Ordered By: TELMA Smith on 10-18-2021 Neutrophils/100 WBC (Bld) 73.3 % . [facility] Nitrite Test strip Ql (U)Ord ered By: TELMA Smith on 10-18-2021 Nitrite Ql (U) Negative Negative [facility] No Panel InformationOrdered By: TELMA Smith on 10-18-2021 SARS Antigen (LFIA) [facility] Phencyclidine Screen Ql (U)O rdered By: TELMA Smith on 10-18-2021 Phencyclidine Ql (U) Negative Negative [facility] Comment on above: These are unconfirme d results and should not be used for legal purposes. Drug Cut-Off Concentration: AMPH 1000 ng/mL FAVIOLA 200 ng/mL THA 200 ng/mL COCM 300 ng/mL OP 300 ng/mL PCP 25 ng/mL Platelet mean volume Auto (B ld) [Entitic vol]Ordered By: TELMA Smith on 10-18-2021 Platelet mean volume (Bld) [Entitic vol] 9.7 fL 6.3-10.7 [facility] Platelets Auto (Bld) [#/Vol] Ordered By: TELMA Smith on 10-18-2021 Platelets (Bld) [#/Vol] 190 10*3/uL 150-450 [facility] Protein Auto test strip (U) [Mass/Vol]Ordered By: TELMA Smith on 10-18-2021 Protein (U) [Mass/Vol] Trace mg/dL Negative [facility] RBC Auto (Bld) [#/Vol]Ordere d By: TELMA Smith on 10-18-2021 RBC (Bld) [#/Vol] 4.38 10*6/uL 3.60-5.00 [facility] S. agalactiae Org specific c x Ql (Unsp spec)Ordered By: Radha Molina on 10-18-2021 Group B Streptococcus Culture Strep. agalactiae Grp B [facility] Specific gravity Auto test s trip (U) [Rel density]Ordered By: TELMA Smith on 10-18-2021 Specific gravity (U) [Rel density] 1.020 1.001-1.03 0 [facility] Squamous epithelial cells de tection in urine sediment by light microscopyOrdered By: TELMA Smith on 10-18-2021 Epithelial cells.squamous LM Ql (Urine sed) 5-9 [HPF] 0-2 [facility] Urine bacteria detection by automated methodOrdered By: TELMA Smith on 10-18-2021 Bacteria Auto Ql (U) 1+ None Seen [facility] Urine clarity by refractomet ry automatedOrdered By: TELMA Smith on 10-18-2021 Clarity Refractometry automated (U) Cloudy Clear [facility] Urine cocaine detectionOrder ed By: TELMA Smith on 10-18-2021 Cocaine Ql (U) Negative Negative [facility] Urine glucose measurement by automated test strip (mass/volume)Ordered By: SHELLIE Smith on 10-18-2021 Glucose Auto test strip (U) [Mass/Vol] Normal mg/dL Normal [facility] Urine hemoglobin detection b y automated test stripOrdered By: TELMA Smith on 10-18-2021 Hemoglobin Auto test strip Ql (U) Negative Negative [facility] Urine leukocyte esterase det ection by automated test stripOrdered By: TELMA Smith on 10-18-2021 Leukocyte esterase Auto test strip Ql (U) 3+ Negative [facility] Urobilinogen Auto test strip (U) [Mass/Vol]Ordered By: TELMA Smith on 10-18-2021 Urobilinogen (U) [Mass/Vol] Normal mg/dL Normal [facility] pH Auto test strip (U)Ordere d By: TELMA Smith on 10-18-2021 pH (U) 6.5 [pH] 5.0-9.0 [facility] UA (CLEAN/CATCH) [employer]/MICRO I F IND.on 08-31-2021 Bilirubin Ql (U) Negative Normal NEGATIVE [facility] Comment on above: Performed By: #### U ACSIND, UMICRO #### [facility] [address] [place] [address] Dr. Moris Winter Clarity (U) SL CLOUDY Abnormal CLEAR [facility] Comment on above: Performed By: #### U ACSIND, UMICRO #### [facility] [address] [place] [address] Dr. Moris Winter Color (U) LT. YELLOW Normal YELLOW [facility] [facility] Comment on above: Performed By: #### U ACSIND, UMICRO #### [facility] [address] [place] [address] Dr. Moris Winter Glucose Ql (U) Negative Normal NEGATIVE [facility] Comment on above: Performed By: #### U ACSIND, UMICRO #### [facility] [address] [place] [address] Dr. Moris Winter Hemoglobin Ql (U) TRACE-INTACT Abnormal NEGATIVE [facility] Comment on above: Performed By: #### U ACSIND, UMICRO #### [facility] [address] [place] [address] Dr. Moris Winter Ketones Ql (U) Negative Normal NEGATIVE [facility] Comment on above: Performed By: #### U ACSIND, UMICRO #### [facility] [address] [place] [address] Dr. Moris Winter LEUKOCYTES TRACE Abnormal NEGATIVE [facility] Comment on above: Performed By: #### U ACSIND, UMICRO #### [facility] [address] [address] [address] Moris Winter Nitrite Ql (U) Negative Normal NEGATIVE [facility] Comment on above: Performed By: #### U ACSIND, UMICRO #### [facility] [address] [address] [address] Moris Winter pH (U) 7.0 [pH] Normal 5-9 [facility] Comment on above: Performed By: #### U ACSIND, UMICRO #### [facility] [address] [place] [address] Dr. Moris Winter SPEC GRAVITY 1.010 Normal 1.005-<=1. 025 [facility] Comment on above: Performed By: #### U ACSIND, UMICRO #### [facility] [address] [place] [address] Dr. Moris Winter UA PROTEIN Negative Normal NEGATIVE/ TRACE [facility] Comment on above: Performed By: #### U ACSIND, UMICRO #### [facility] [address] [address] [address] Moris Winter UR MICRO IND INDICATED Normal [facility] Comment on above: Performed By: #### U ACSIND, UMICRO #### [facility] [address] [place] [address] Dr. Moris Winter Urobilinogen Qn (U) 0.2 {Marcin'U}/dL Normal 0.2 - 1. 0 [facility] Comment on above: Performed By: #### U ACSIND, UMICRO #### [facility] [address] [address] [address] Moris Winter URINE MICROSCOPIC ONLYon BACTERIA NONE SEEN Normal NONE SEEN [facility] Comment on above: Performed By: #### U ACSIND, UMICRO #### [facility] [address] [place] [address] Dr. Moris Winter Bacteria identified Cx Nom (U) NOT INDICATED Normal [facility] Comment on above: Performed By: #### U ACSIND, UMICRO #### [facility] [address] [place] [address] Dr. Moris Winter CAST NONE SEEN Normal NONE SEEN [facility] Comment on above: Performed By: #### U ACSIND, UMICRO #### [facility] [address] [address] [address] Moris Winter Crystals LM Nom (Urine sed) NONE SEEN Normal NONE SEEN [facility] Comment on above: Performed By: #### U ACSIND, UMICRO #### [facility] [address] [place] [address] Dr. Moris Winter Epithelial cells LM Ql (Urine sed) MODERATE Abnormal NONE SEEN /RARE [facility] Comment on above: Performed By: #### U ACSIND, UMICRO #### [facility] [address] [place] [address] Dr. Moris Winter MUCOUS NONE SEEN Normal NONE SEEN [facility] Comment on above: Performed By: #### U ACSNARENDRA, UMICRO #### [facility] [address] [place] [address] Dr. Moris Winter RBC 0-2 Normal 0-2 [facility] Comment on above: Performed By: #### U ACSNARENDRA, UMICRO #### [facility] [address] [place] [address] Dr. Moris Winter WBC 0-2 Abnormal NONE SEEN [facility] Comment on above: Performed By: #### U ACSNARENDRA, UMICRO #### [facility] [address] [place] [address] Dr. Moris Winter Covid-19 PCR (CVDTBH)on 07-17 SARS-CoV-2 (COVID-19) RNA SVETLANA+probe Ql (Unsp spec) Detected Critically abnormal NOT DETECTED [facility] Comment on above: Result Comment: This test is not yet approved or cleared by the [place] FDA. When there are no FDA-approved or cleared tests available, and other criteria are met, FDA can make tests available under an emergency access mechanism called an Emergency Use Authorization (EUA). The EUA for this test is supported by the Demand Planning Analyst of Health and Human Service's declaration that [...] used). Performed By: #### P REGU #### [facility] [address] [place] [address] Dr. Moris Winter INFLUENZA A AND B AGon 08-08 INFLUANE SEE BELOW Normal [facility] Comment on above: Result Comment: Nega tive for Flu A protein angiten. Infection due to Flu A cannot be ruled out. Flu A angiten in the sample may be below the detection limit of the test. Performed By: #### P REGU #### [facility] [address] [place] [address] Dr. Moris Winter INFLUBNEG SEE BELOW Normal [facility] Comment on above: Result Comment: Nega tive for Flu B protein antigen. Infection due to Flu B cannot be ruled out. Flu B antigen in the sample may be below the detection limit of the test. Performed By: #### P REGU #### [facility] [address] [place] [address] Dr. Moris Winter INFLUENZA A AG Negative Normal NEGATIVE SEE COMMENT [facility] Comment on above: Performed By: #### P REGU #### [facility] [address] [place] [address] Dr. Moris Winter INFLUENZA B AG Negative Normal NEGATIVE SEE COMMENT [facility] Comment on above: Performed By: #### P REGU #### [facility] [address] [place] [address] Dr. Moris Winter INTERNAL CONTROLS Within Normal Limits Normal Wi thin Normal Limits [facility] Comment on above: Performed By: #### P REGU #### [facility] [address] [place] [address] Dr. Moris Winter Serum or plasma beta choriog onadotropin measurement (units/volume)Ordered By: Radha Molina on 07-21-2021 [place] [address].00 m[IU]/mL [facility] Comment on above: Approximate Approxim ate hCG Gestational Age Range (mIU/ml) (weeks) 0.2-1 5-50 1-2 50-500 2-3 100-5,000 3-4 500-10,000 4-5 1,000-50,000 5-6 10,000-100,000 6-8 15,000-200,000 8-12 10,000-100,000 Operative Reporton 9 Operative Report MR#: [id number] S [facility] Pt. Name: Rosette Alba Room #: [...] placed Adaptic under the skin using a [place] and tied this down with a 5-0 [...] Carballo MD Date Trans: 08/03/2018 08:27 P/antony [id number]_[id number] cc: Soraya Romo [address] [place] [id number] Normal The [facility] POC GLUCOSE LABon 08-03-2018 Glucose [Mass/Vol] 105 mg/dL High 70-100 [facility] Comment on above: Performed By: #### [id number] #### [facility] [address] POC URINE PREGNANCYon 2018 Beta HCG ( test) Ql (U) Negative Normal NEGATIVE [facility] Comment on above: Result Comment: Perf ormed in PACU Performed By: #### [id number] #### [facility] [address] Vital Signs Date Time Vital Sign Value Performing Clinician Facility 03-09-2024 10:38-0500 Body mass index (BMI) [Ratio] 39.17 kg/m2 [employer] Work Phone: [facility] 03-09-2024 10:38-0500 Body weight 100.31 kg [employer] Work Phone: [facility] 03-09-2024 10:38-0500 Diastolic blood pressure 60 mm[Hg] Camacho Mary DO Work Phone: [facility] 03-09-2024 10:38-0500 Systolic blood pressure 116 mm[Hg] Camacho Mary DO Work Phone: [facility] 10-20-2023 08:28-0400 Body height 160.02 cm RESHIPPING CLERK-C Nataly Spasic Work Phone: [facility] 10-20-2023 08:28-0400 Body mass index (BMI) [Ratio] 38 kg/m2 RESHIPPING CLERK-C Nataly Spasic Work Phone: [facility] 10-20-2023 08:28-040 Body temperature 97.7 [degF] RESHIPPING CLERK-C Nataly Spasic Work Phone: [facility] 10-20-2023 08:28-0400 Body weight 97.52 kg RESHIPPING CLERK-C Nataly Spasic Work Phone: [facility] 10-20-2023 08:28-0400 Diastolic blood pressure 74 mm[Hg] RESHIPPING CLERK-C Nataly Spasic Work Phone: [facility] 10-20-2023 08:28-0400 Heart rate 75 /min RESHIPPING CLERK-C Nataly Spasic Work Phone: [facility] 10-20-2023 08:28-0400 Respiratory rate 18 /min RESHIPPING CLERK-C Nataly Spasic Work Phone: [facility] 10-20-2023 08:28-0400 SaO2% (BldA) [Mass fraction] 99 % RESHIPPING CLERK-C Nataly Spasic Work Phone: [facility] 10-20-2023 08:28-0400 Systolic blood pressure 107 mm[Hg] RESHIPPING CLERK-C Nataly Spasic Work Phone: [facility] 10-04-2023 22:40-0400 Body height 160.02 cm RESHIPPING CLERK-C Nataly Spasic Work Phone: [facility] 10-04-2023 22:40-0400 Body temperature 97.7 [degF] RESHIPPING CLERK-C Nataly Spasic Work Phone: [facility] 10-04-2023 22:40-0400 Body weight 95.5 kg RESHIPPING CLERK-C Nataly Spasic Work Phone: [facility] 10-04-2023 22:40-0400 Diastolic blood pressure 75 mm[Hg] RESHIPPING CLERK-C Nataly Spasic Work Phone: [facility] 10-04-2023 22:40-0400 Heart rate 95 /min RESHIPPING CLERK-C Nataly Spasic Work Phone: [facility] 10-04-2023 22:40-0400 Respiratory rate 16 /min RESHIPPING CLERK-C Nataly Spasic Work Phone: [facility] 10-04-2023 22:40-0400 SaO2% (BldA) [Mass fraction] 98 % RESHIPPING CLERK-C Nataly Spasic Work Phone: [facility] 10-04-2023 22:40-0400 Systolic blood pressure 132 mm[Hg] RESHIPPING CLERK-C Nataly Spasic Work Phone: [facility] 09-26-2023 21:36-0400 Body temperature 98.1 [degF] RESHIPPING CLERK-C Nataly Spasic Work Phone: [facility] 09-26-2023 21:36-0400 Diastolic blood pressure 74 mm[Hg] RESHIPPING CLERK-C Nataly Spasic Work Phone: [facility] 09-26-2023 21:36-0400 Heart rate 90 /min RESHIPPING CLERK-C Nataly Spasic Work Phone: [facility] 09-26-2023 21:36-0400 Respiratory rate 16 /min RESHIPPING CLERK-C Nataly Spasic Work Phone: [facility] 09-26-2023 21:36-0400 SaO2% (BldA) [Mass fraction] 99 % RESHIPPING CLERK-C Nataly Spasic Work Phone: [facility] 09-26-2023 21:36-0400 Systolic blood pressure 145 mm[Hg] RESHIPPING CLERK-C Nataly Spasic Work Phone: [facility] 09-26-2023 21:35-0400 Body height 160.02 cm RESHIPPING CLERK-C Nataly Spasic Work Phone: [facility] 09-26-2023 21:35-0400 Body weight 96.7 kg RESHIPPING CLERK-C Nataly Spasic Work Phone: [facility] 08-20-2023 23:05-0400 Body height 160.02 cm RESHIPPING CLERK-C Nataly Spasic Work Phone: [facility] 08-20-2023 23:05-0400 Body temperature 98.3 [degF] RESHIPPING CLERK-C Nataly Spasic Work Phone: [facility] 08-20-2023 23:05-0400 Body weight 97.5 kg RESHIPPING CLERK-C Nataly Spasic Work Phone: [facility] 08-20-2023 23:05-0400 Diastolic blood pressure 66 mm[Hg] RESHIPPING CLERK-C Nataly Spasic Work Phone: [facility] 08-20-2023 23:05-0400 Heart rate 90 /min RESHIPPING CLERK-C Nataly Spasic Work Phone: [facility] 08-20-2023 23:05-0400 Respiratory rate 20 /min RESHIPPING CLERK-C Nataly Spasic Work Phone: [facility] 08-20-2023 23:05-0400 SaO2% (BldA) [Mass fraction] 99 % RESHIPPING CLERK-C Nataly Spasic Work Phone: [facility] 08-20-2023 23:05-0400 Systolic blood pressure 136 mm[Hg] RESHIPPING CLERK-C Nataly Spasic Work Phone: [facility] 02-13-2023 21:40-0500 Body temperature 97.7 [degF] RESHIPPING CLERK-C Nataly Spasic Work Phone: [facility] 02-13-2023 21:40-0500 Diastolic blood pressure 87 mm[Hg] RESHIPPING CLERK-C Nataly Spasic Work Phone: [facility] 02-13-2023 21:40-0500 Heart rate 100 /min RESHIPPING CLERK-C Nataly Spasic Work Phone: [facility] 02-13-2023 21:40-0500 Respiratory rate 18 /min RESHIPPING CLERK-C Nataly Spasic Work Phone: [facility] 02-13-2023 21:40-0500 SaO2% (BldA) [Mass fraction] 96 % RESHIPPING CLERK-C Nataly Spasic Work Phone: [facility] 02-13-2023 21:40-0500 Systolic blood pressure 140 mm[Hg] RESHIPPING CLERK-C Nataly Spasic Work Phone: [facility] 02-13-2023 11:10-0500 Body height 160.02 cm RESHIPPING CLERK-C Nataly Spasic Work Phone: [facility] 02-13-2023 11:10-0500 Body weight 99.79 kg RESHIPPING CLERK-C Nataly Spasic Work Phone: [facility] 02-01-2023 19:30-0500 Body temperature 97.3 [degF] RESHIPPING CLERK-C Nataly Spasic Work Phone: [facility] 02-01-2023 19:30-0500 Diastolic blood pressure 75 mm[Hg] RESHIPPING CLERK-C Nataly Spasic Work Phone: [facility] 02-01-2023 19:30-0500 Heart rate 94 /min RESHIPPING CLERK-C Nataly Spasic Work Phone: [facility] 02-01-2023 19:30-0500 Respiratory rate 14 /min RESHIPPING CLERK-C Nataly Spasic Work Phone: [facility] 02-01-2023 19:30-0500 SaO2% (BldA) [Mass fraction] 98 % RESHIPPING CLERK-C Nataly Spasic Work Phone: [facility] 02-01-2023 19:30-0500 Systolic blood pressure 123 mm[Hg] RESHIPPING CLERK-C Nataly Spasic Work Phone: [facility] 01-31-2023 09:00-0500 Body temperature 98 [degF] RESHIPPING CLERK-C Nataly Spasic Work Phone: [facility] 01-31-2023 09:00-0500 Respiratory rate 16 /min RESHIPPING CLERK-C Nataly Spasic Work Phone: [facility] 01-31-2023 08:46-0500 Diastolic blood pressure 57 mm[Hg] RESHIPPING CLERK-C Nataly Spasic Work Phone: [facility] 01-31-2023 08:46-0500 Heart rate 112 /min RESHIPPING CLERK-C Nataly Spasic Work Phone: [facility] 01-31-2023 08:46-0500 Systolic blood pressure 112 mm[Hg] RESHIPPING CLERK-C Nataly Spasic Work Phone: [facility] 01-31-2023 06:31-0500 SaO2% (BldA) [Mass fraction] 96 % RESHIPPING CLERK-C Nataly Spasic Work Phone: [facility] 01-31-2023 00:08-0500 Body height 160.02 cm RESHIPPING CLERK-C Nataly Spasic Work Phone: [facility] 01-31-2023 00:08-0500 Body weight 97.52 kg RESHIPPING CLERK-C Nataly Spasic Work Phone: [facility] 01-21-2023 09:56-0500 Body height 157.48 cm RESHIPPING CLERK-C Nataly Spasic Work Phone: [facility] 01-21-2023 09:56-0500 Body weight 81.64 kg RESHIPPING CLERK-C Nataly Spasic Work Phone: [facility] 12-01-2022 18:06-0400 Diastolic blood pressure 75 mm[Hg] RESHIPPING CLERK-C Nataly Spasic Work Phone: [facility] 12-01-2022 18:06-0400 Heart rate 109 /min RESHIPPING CLERK-C Nataly Spasic Work Phone: [facility] 12-01-2022 18:06-0400 Respiratory rate 17 /min RESHIPPING CLERK-C Nataly Spasic Work Phone: [facility] 12-01-2022 18:06-0400 SaO2% (BldA) [Mass fraction] 99 % RESHIPPING CLERK-C Nataly Spasic Work Phone: [facility] 12-01-2022 18:06-0400 Systolic blood pressure 123 mm[Hg] RESHIPPING CLERK-C Nataly Spasic Work Phone: [facility] 12-01-2022 14:32-0400 Body height 160.02 cm RESHIPPING CLERK-C Nataly Spasic Work Phone: [facility] 12-01-2022 14:32-0400 Body temperature 97.6 [degF] RESHIPPING CLERK-C Nataly Spasic Work Phone: [facility] 12-01-2022 14:32-0400 Body weight 101.2 kg RESHIPPING CLERK-C Nataly Spasic Work Phone: [facility] 11-20-2022 19:00-0400 Respiratory rate 16 /min RESHIPPING CLERK-C Nataly Spasic Work Phone: [facility] 11-20-2022 18:14-0400 Diastolic blood pressure 65 mm[Hg] RESHIPPING CLERK-C Nataly Spasic Work Phone: [facility] 11-20-2022 18:14-0400 Heart rate 100 /min RESHIPPING CLERK-C Nataly Spasic Work Phone: [facility] 11-20-2022 18:14-0400 Systolic blood pressure 131 mm[Hg] RESHIPPING CLERK-C Nataly Spasic Work Phone: [facility] 11-20-2022 18:05-0400 SaO2% (BldA) [Mass fraction] 99 % RESHIPPING CLERK-C Nataly Spasic Work Phone: [facility] 11-20-2022 17:21-0400 Body height 160.02 cm RESHIPPING CLERK-C Nataly Spasic Work Phone: [facility] 11-20-2022 17:21-0400 Body weight 98.88 kg RESHIPPING CLERK-C Nataly Spasic Work Phone: [facility] 11-19-2022 13:49-0400 Respiratory rate 16 /min RESHIPPING CLERK-C Nataly Spasic Work Phone: [facility] 11-19-2022 13:30-0400 Body temperature 97.4 [degF] RESHIPPING CLERK-C Nataly Spasic Work Phone: [facility] 11-19-2022 12:53-0400 Diastolic blood pressure 71 mm[Hg] RESHIPPING CLERK-C Nataly Spasic Work Phone: [facility] 11-19-2022 12:53-0400 Heart rate 109 /min RESHIPPING CLERK-C Nataly Spasic Work Phone: [facility] 11-19-2022 12:53-0400 Systolic blood pressure 125 mm[Hg] RESHIPPING CLERK-C Nataly Spasic Work Phone: [facility] 11-19-2022 12:49-0400 SaO2% (BldA) [Mass fraction] 99 % RESHIPPING CLERK-C Nataly Spasic Work Phone: [facility] 11-19-2022 12:23-0400 Body height 160.02 cm RESHIPPING CLERK-C Nataly Spasic Work Phone: [facility] 11-19-2022 12:23-0400 Body weight 98.88 kg RESHIPPING CLERK-C Nataly Spasic Work Phone: [facility] 10-18-2021 05:08-0400 Diastolic blood pressure 58 mm[Hg] DO Obdulia Oneil Work Phone: [facility] 10-18-2021 05:08-0400 Heart rate 96 /min DO Obdulia Oneil Work Phone: [facility] 10-18-2021 05:08-0400 SaO2% (BldA) [Mass fraction] 98 % DO Obdulia Oneil Work Phone: [facility] 10-18-2021 05:08-0400 Systolic blood pressure 118 mm[Hg] DO Obdulia Oneil Work Phone: [facility] 10-18-2021 05:00-0400 Body temperature 98.3 [degF] DO Obdulia Oneil Work Phone: [facility] 10-18-2021 05:00-0400 Respiratory rate 16 /min DO Obdulia Oneil Work Phone: [facility] 10-18-2021 01:57-0400 Body weight 102.51 kg DO Obdulia Oneil Work Phone: [facility] 10-18-2021 01:31-0400 Body height 160.02 cm DO Obdulia Oneil Work Phone: [facility] Encounters Encounter Date Encounter Type Care Provider Facility Start: 03-17-2024 End: 03-20-2024 Chart abstracting Oscar Nolan MD Work Phone: [facility] Start: 03-14-2024 End: 03-14-2024 Clinisync Result Encounter [...] above: GA: 11w1d Start: 11-03-2023 ambulatory Nataly E Spasic Facility :[facility] Start: 10-20-2023 Registered Recurring RESHIPPING CLERK-C Andrez a Spasic Work Phone: [facility] Acute Work Phone: Start: 10-20-2023 End: 10-20-2023 ambulatory RESHIPPING CLERK-C Nataly E Spasic Work Phone: [facility] Work Phone: Start: 10-20-2023 End: 10-20-2023 Patient encounter procedure RESHIPPING CLERK-C Nataly Spasic Work Phone: [facility] Amb[facility] Work Phone: Start: 10-07-2023 End: 10-07-2023 Patient encounter procedure RESHIPPING CLERK-C Nataly Spasic Work Phone: [facility] [place] Work Phone: Start: 10-07-2023 End: 10-07-2023 ambulatory RESHIPPING CLERK-C Nataly E Spasic Work Phone: [facility] Work Phone: Start: 10-04-2023 End: 10-05-2023 Emergency department patient visit RESHIPPING CLERK-C Nataly Spasic Work Phone: [facility] Work Phone: Start: 09-30-2023 End: 09-30-2023 ambulatory RESHIPPING CLERK-C Nataly E Spasic Work Phone: [facility] Work Phone: Start: 09-30-2023 End: 09-30-2023 Departed Referred RESHIPPING CLERK-C Nataly Spasic Work Phone: [facility] [place] Work Phone: Start: 09-26-2023 End: 09-27-2023 Emergency department patient visit RESHIPPING CLERK-C Nataly Junesic Work Phone: [facility] Work Phone: Start: 08-20-2023 End: 08-21-2023 Emergency department patient visit RESHIPPING CLERK-C Nataly Junesic Work Phone: [facility] Work Phone: Start: 08-03-2023 End: 08-03-2023 ambulatory Nataly Brian Spasic [facility] Work Phone: Start: 08-03-2023 End: 08-03-2023 Departed Referred RESHIPPING CLERK-C Nataly Spasic Work Phone: [facility] Start: 05-27-2023 End: 05-27-2023 ambulatory RADHA E RINKES Not Available Start: 05-25-2023 End: 05-25-[address] Not Available Start: 05-05-2023 End: 05-05-2023 ambulatory RADHA E RINKES Not Available Start: 04-15-2023 End: 04-15-2023 ambulatory Nataly E Spasic Facility:[facility] Start: 03-17-2023 End: 03-17-2023 Patient encounter procedure PHYSICIAN NO [facility] [place] Work Phone: Start: 03-17-2023 End: 03-17-2023 ambulatory PHYSICIAN NO [facility] Work Phone: Start: 03-04-2023 End: 03-04-2023 ambulatory PHYSICIAN NO [facility] Work Phone: Start: 03-04-2023 End: 03-04-2023 Departed Referred PHYSICIAN NO [facility] Start: 02-13-2023 End: 02-13-2023 Evaluation and management of inpatient RESHIPPING CLERK-C Nataly Spasic Work Phone: [facility] [place] Work Phone: Start: 02-01-2023 End: 02-01-2023 Patient encounter procedure RESHIPPING CLERK-C Nataly Spasic Work Phone: [facility] - O/P Start: 02-01-2023 End: 02-01-2023 ambulatory RESHIPPING CLERK-C Nataly E Spasic Work Phone: [facility] Work Phone: Start: 01-30-2023 End: 01-31-2023 Patient encounter procedure RESHIPPING CLERK-C Nataly Spasic Work Phone: [facility] - O/P Start: 01-30-2023 End: 01-31-2023 ambulatory RESHIPPING CLERK-C Nataly E Spasic Work Phone: [facility] Work Phone: Start: 01-22-2023 End: 01-22-2023 Patient encounter procedure RESHIPPING CLERK-C Nataly Spasic Work Phone: [facility] - O/P Start: 01-22-2023 End: 01-22-2023 ambulatory RESHIPPING CLERK-C Nataly E Spasic Work Phone: [facility] Work Phone: Start: 01-21-2023 End: 01-21-2023 Patient encounter procedure RESHIPPING CLERK-C Nataly Spasic Work Phone: [facility] - O/P Start: 01-21-2023 End: 01-21-2023 ambulatory RESHIPPING CLERK-C Nataly E Spasic Work Phone: [facility] Work Phone: Start: 01-05-2023 End: 01-05-2023 ambulatory RESHIPPING CLERK-C Nataly E Spasic Work Phone: [facility] Work Phone: Start: 01-05-2023 End: 01-05-2023 Departed Referred RESHIPPING CLERK-C Nataly Spasic Work Phone: [facility] [place] Work Phone: Start: 12-22-2022 End: 12-22-2022 Patient encounter procedure RESHIPPING CLERK-C Nataly Spasic Work Phone: [facility] [place] Work Phone: Start: 12-22-2022 End: 12-22-2022 ambulatory RESHIPPING CLERK-C Nataly E Spasic Work Phone: [facility] Work Phone: Start: 12-08-2022 End: 12-08-2022 ambulatory RESHIPPING CLERK-C Nataly E Spasic Work Phone: [facility] Work Phone: Start: 12-08-2022 End: 12-08-2022 Departed Referred RESHIPPING CLERK-C Nataly Spasic Work Phone: [facility] [place] Work Phone: Start: 12-03-2022 End: 12-03-2022 ambulatory RESHIPPING CLERK-C Nataly E Spasic Work Phone: [facility] Work Phone: Start: 12-03-2022 End: 12-03-2022 Departed Referred RESHIPPING CLERK-C Nataly Spasic Work Phone: [facility] Start: 12-01-2022 End: 12-01-2022 Emergency department patient visit RESHIPPING CLERK-C Nataly Spasic Work Phone: [facility]Emergency Room Work Phone: Start: 11-21-2022 End: 11-21-2022 ambulatory RESHIPPING CLERK-C Nataly E Spasic Work Phone: [facility] Work Phone: Start: 11-21-2022 End: 11-21-2022 Patient encounter procedure RESHIPPING CLERK-C Nataly Spasic Work Phone: [facility]3 [facility] - O/P Start: 11-20-2022 End: 11-20-2022 ambulatory RESHIPPING CLERK-C Nataly E Spasic Work Phone: [facility] Work Phone: Start: 11-20-2022 End: 11-20-2022 Patient encounter procedure RESHIPPING CLERK-C Nataly Spasic Work Phone: [facility]-[address] [place] [address] - O/P Start: 11-19-2022 End: 11-19-2022 ambulatory RESHIPPING CLERK-C Nataly E Spasic Work Phone: [facility] Work Phone: Start: 11-19-2022 End: 11-19-2022 Patient encounter procedure RESHIPPING CLERK-C Nataly Spasic Work Phone: [facility]-[address] [place] [address] - O/ Start: 07-13-2022 End: 07-14-2022 ambulatory PA ABDIRASHID HARDEN . Facility: Start: 06-23-2022 End: 06-23-2022 ambulatory RESHIPPING CLERK-C Nataly E Spasic Work Phone: [facility] Work Phone: Start: 06-23-2022 End: 06-23-2022 Patient encounter procedure RESHIPPING CLERK-C Nataly Spasic Work Phone: [facility] Work Phone: Start: 06-16-2022 End: 06-16-2022 Departed Referred RESHIPPING CLERK-C Nataly Spasic Work Phone: [facility] Start: 06-04-2022 End: 06-04-2022 ambulatory RESHIPPING CLERK-C Nataly E Spasic Work Phone: [facility] Work Phone: Start: 06-04-2022 End: 06-04-2022 Patient encounter procedure RESHIPPING CLERK-C Nataly Shayleesic Work Phone: [facility] [place] Work Phone: Start: 06-03-2022 End: 06-03-[address] SHARMILA BAIG . Facility:[facility] Start: 05-28-2022 End: 05-28-2022 ambulatory RESHIPPING CLERK-C Nataly Junesic Work Phone: [facility] Work Phone: Start: 05-28-2022 End: 05-28-2022 Departed Referred RESHIPPING CLERK-C Nataly Jerniganc Work Phone: [facility] Start: 03-15-2022 End: 03-16-2022 ambulatory CORRINA DHALIWAL Facility:[facility] Start: 10-18-2021 End: 10-18-2021 Evaluation and management of inpatient DO Obdulia Oneil Work Phone: [facility] Start: 10-16-2021 End: 10-16-2021 Departed Referred DO Obdulia Oneil Work Phone: [facility] [place] Start: 08-31-2021 End: 08-31-[address] CAMACHO HERNANDEZ . Facility:[facility] Start: 08-08-2021 End: 08-08-2021 ambulatory CORRINA DHALIWAL Facility:[facility] Start: 07-21-2021 End: 07-21-2021 Patient encounter procedure DO Obdulialeigh Oneil Work Phone: [facility] [place] Start: 08-03-2018 End: 08-04-2018 Patient encounter procedure SHARLA HICKS Facility:[facility] Procedures Date Procedure Procedure Detail Performing Clinician Start: 03-14-2024 US OB CERVICAL LENGTH C mildred Hernandez DO Work Phone: Start: 03-09-2024 Urnls dip stick/tabl et rgnt non-auto w/o micrscp Camacho Mary DO Work Phone: Start: 02-25-2024 BOX TEST Camacho Fazi o DO Work Phone: Start: 02-25-2024 FREE CELL DNA (NON-[facility]) Not In System Ref Prov Start: 02-03-2024 End: 02-03-2024 Urnls dip stick/tablet rgnt non-auto w/o micrscp Camacho Mary DO Work Phone: Start: 10-07-2023 Diagnostic radiograp hy of abdomen RESHIPPING CLERK-C Nataly Spasic Work Phone: Start: 10-07-2023 Ultrasonography of liver RESHIPPING CLERK-C Nataly Spasic Work Phone: Start: 10-07-2023 US scan of thyroid RESHIPPING CLERK-C Nataly Spasic Work Phone: Start: 09-26-2023 CT of lumbar spine w ithout contrast RESHIPPING CLERK-C Nataly Spasic Work Phone: Start: 09-26-2023 Urine culture RESHIPPING CLERK-C Andrez a Spasic Work Phone: Start: 02-13-2023 Urine culture PHYSICIAN NO FAMILY Start: 02-01-2023 Urine culture RESHIPPING CLERK-C Andrez a Spasic Work Phone: Start: 01-05-2023 Streptococcus agalac tiae culture RESHIPPING CLERK-C Nataly Spasic Work Phone: Start: 12-01-2022 Plain chest X-ray RESHIPPING CLERK-C Nataly Spasic Work Phone: Start: 12-01-2022 Respiratory Panel (PCR) RESHIPPING CLERK-C Nataly Spasic Work Phone: Start: 11-20-2022 Ultrasound scan - obstetric RESHIPPING CLERK-C Nataly Spasic Work Phone: Start: 06-04-2022 US scan of gallbladder RESHIPPING CLERK-C Nataly Spasic Work Phone: Start: 08-03-2018 Anes integ extremiti es ant trunk & perineum nos AREN PITT Start: 08-03-2018 Repair nail bed SHARLA CLARK SARS Antigen (LFIA) DO Luis Enrique Oneil Work Phone: Streptococcus agalac tiae culture DO Obdulia Oneil Work Phone: Plan of Treatment Date Care Activity Detail Author Start: 04-13-2024 End: 04-13-2024 Patient encounter procedure [facility] Start: 04-06-2024 End: 04-06-2024 Patient encounter procedure 04/06/2024 10:30 AM EST Routine [facility] [address] [place] [address] Kim Khoury PA [address] [place] [address] [facility] Start: 03-09-2024 End: 05-07-2024 Alpha fetoprotein, maternal Alpha fetoprotein, maternal Lab Routine Second trimester 16 weeks gestation of Expected: 03/09/2024 (Approximate), Expires: 05/07/2024 [facility] Work Phone: Comment on above: Expected: 03/09/2024 (Approximate), Expires: 05/07/2024 Start: 03-09-2024 End: 03-09-2025 Measurement of glucose 1 hour after glucose challenge for glucose tolerance test Glucose tolerance, 1 hour Lab Routine History of delivery, currently History of gestational diabetes Expected: 03/09/2024 (Approximate), Expires: 03/09/2025 [facility] Comment on above: Expected: 03/09/2024 (Approximate), Expires: 03/09/2025 Start: 03-09-2024 End: 03-09-2025 US Pelvis transvaginal US OB transvaginal Imaging Routine History of delivery, currently Expected: 03/09/2024, Expires: 03/09/2025 [facility] Comment on above: Expected: 03/09/2024 , Expires: 03/09/2025 Start: 03-09-2024 End: 03-09-2024 Patient encounter procedure [facility] Comment on above: Arrived Start: 02-03-2024 End: 02-02-2025 ABO/Rh ABO/Rh Lab Routine Missed menses , unspecified gestational age Expected: 02/03/2024 (Approximate), Expires: 02/02/2025 [facility] Comment on above: Expected: 02/03/2024 (Approximate), Expires: 02/02/2025 Start: 02-03-2024 End: 02-02-2025 Blood type and Indirect antibody screen panel - Blood Type and screen Lab Routine Missed menses , unspecified gestational age Expected: 02/03/2024 (Approximate), Expires: 02/02/2025 [facility] Work Phone: Comment on above: Expected: 02/03/2024 (Approximate), Expires: 02/02/2025 Start: 02-03-2024 End: 02-02-2025 Drugs of abuse panel - Urine by Screen method Rapid drug screen, urine Lab Routine , unspecified gestational age Encounter for supervision of normal first in first trimester Expected: 02/03/2024 (Approximate), Expires: 02/02/2025 [facility] Comment on above: Expected: 02/03/2024 (Approximate), Expires: 02/02/2025 Start: 02-03-2024 End: 02-02-2025 US Pelvis transvaginal US OB transvaginal Imaging Routine Missed menses Expected: 02/03/2024 (Approximate), Expires: 02/02/2025 [facility] Comment on above: Expected: 02/03/2024 (Approximate), Expires: 02/02/2025 Start: 10-17-2023 Influenza [facility] Start: 09-26-2023 CT Lumbar spine WO contrast [facility] Start: 09-26-2023 CT of lumbar spine w ithout contrast CT lumbar spine wo con [facility] Start: 09-26-2023 Bacteria identified in Urine by Culture [facility] Start: 08-20-2023 [facility] Start: 02-14-2023 [facility] Start: 02-13-2023 End: 02-13-2023 [facility] Start: 02-13-2023 Bacteria identified in Urine by Culture [facility] Start: 02-13-2023 Delivery of Products of Conception, External Approach Delivery of Products of Conception, External Approach [facility] Start: 02-13-2023 Drainage of Amniotic Fluid, Therapeutic from Products of Conception, Via Natural or Artificial Opening Drainage of Amniotic Fluid, Therapeutic from Products of Conception, Via Natural or Artificial Opening [facility] Start: 02-13-2023 Hospital admission [facility] Start: 02-13-2023 Hospital admission [facility] Start: 02-13-2023 End: 02-13-2023 [facility] Start: 02-01-2023 [facility] Start: 02-01-2023 Hospital admission [facility] Start: 02-01-2023 Bacteria identified in Urine by Culture [facility] Start: 01-31-2023 [facility] Start: 01-30-2023 Hospital admission [facility] Start: 01-22-2023 [facility] Start: 01-21-2023 [facility] Start: 01-05-2023 Group B Streptococcu s Culture Group B Streptococcus Culture [facility] Start: 12-01-2022 Respiratory Panel (PCR) Respiratory Panel (PCR) [facility] Start: 11-21-2022 [facility] Start: 11-20-2022 [facility] Start: 11-20-2022 Hospital admission [facility] Start: 11-19-2022 [facility] Start: 11-19-2022 Hospital admission [facility] Start: 11-19-2022 [facility] Start: 10-18-2021 End: 10-18-2021 [facility] Work Phone: Start: 10-18-2021 Hospital admission [facility] Work Phone: Start: 2020 Screening for malign ant neoplasm of cervix Pap Smear [facility] Start: 02-16-2020 DTaP,Tdap and Td Vac cines (2 - Td or Tdap) DTaP,Tdap and Td Vaccines (2 - Td or Tdap) [facility] Start: 2017 Adult BMI Screening Adult BMI Screen ing [facility] Start: 2011 Depression Screening Depression Scre ening [facility] Start: 2011 Tobacco Screening Tobacco Screening [facility] Bacteria identified in Urine by Culture [facility] Bacteria identified in Urine by Culture Urine culture Microbiology Routine Missed menses Ordered: 02/03/2024 [facility] Comment on above: Ordered: 02/03/2024 CBC W Auto Different ial panel - Blood CBC and differential Lab Routine Missed menses , unspecified gestational age Ordered: 02/03/2024 [facility] Comment on above: Ordered: 02/03/2024 Glucose measurement estimated from glycated hemoglobin [facility] Hemoglobin A1c/Hemoglobin.total in Blood [facility] Hemoglobin A1c/Hemoglobin.total in Blood Hemoglobin A1c Lab Routine Missed menses , unspecified gestational age Ordered: 02/03/2024 [facility] Comment on above: Ordered: 02/03/2024 Hepatitis B virus almeida rface Ag [Presence] in Serum or Plasma by Immunoassay Hepatitis B surface antigen Lab Routine Missed menses , unspecified gestational age Ordered: 02/03/2024 [facility] Comment on above: Ordered: 02/03/2024 Hepatitis C virus Ab [Presence] in Serum or Plasma by Immunoassay Hepatitis C antibody Lab Routine Missed menses , unspecified gestational age Ordered: 02/03/2024 [facility] Comment on above: Ordered: 02/03/2024 HIV-1/HIV-2 antigen/antibody combination immunoassay HIV-1 and HIV-2 antibodies Lab Routine Missed menses , unspecified gestational age Ordered: 02/03/2024 [facility] Comment on above: Ordered: 02/03/2024 Insulin [Units/volum e] in Serum or Plasma [facility] Insulin [Units/volum e] in Serum or Plasma [facility] Insulin [Units/volum e] in Serum or Plasma [facility] Patient Education [facility] Work Phone: Patient referral [facility] Work Phone: Reagin Ab [Presence] in Serum by RPR [facility] Work Phone: Reagin Ab [Presence] in Serum by RPR [facility] Reagin Ab [Presence] in Serum by RPR RPR Lab Routine Missed menses , unspecified gestational age Ordered: 02/03/2024 [facility] Comment on above: Ordered: 02/03/2024 Respiratory pathogen s DNA and RNA panel - Nasopharynx by SVETLANA with non-probe detection [facility] Rubella antibody, IgG Rubella an tibody, IgG Lab Routine Missed menses , unspecified gestational age Ordered: 02/03/2024 [facility] Comment on above: Ordered: 02/03/2024 Streptococcus agalac tiae [Presence] in Unspecified specimen by Organism specific culture [facility] Thyroperoxidase Ab [Units/volume] in Serum or Plasma [facility] Thyrotropin [Units/v olume] in Serum or Plasma [facility] Thyrotropin [Units/v olume] in Serum or Plasma TSH Lab Routine , unspecified gestational age Encounter for supervision of normal first in first trimester Ordered: 02/03/2024 [facility] Comment on above: Ordered: 02/03/2024 Thyroxine (T4) free index in Serum or Plasma by calculation [facility] Thyroxine measurement [facility] Triiodothyronine (T3 ) [Mass/volume] in Serum or Plasma [facility] Triiodothyronine res in uptake (T3RU) in Serum or Plasma [facility] Immunizations Immunization Date Immunization Notes Care Provider Arcadio galicia 04-09-2023 influenza virus vaccine, unspecified formulation [facility] Nurse [facility] 02-13-2023 tetanus toxoid, reduced diphtheria toxoid, and acellular pertussis vaccine, adsorbed RESHIPPING CLERK-Anirudh Toure Work Phone: [facility] 01-10-2021 influenza, injectable, quadrivalent, preservative free DO Obdulia Oneil Work Phone: [facility] 02-15-2010 tetanus toxoid, reduced diphtheria toxoid, and acellular pertussis vaccine, adsorbed [facility] Nurse [facility] Work Phone: 12-13-2008 novel [id number], preservative-free, injectable [facility] Nurse [facility] 12-13-2008 influenza virus vaccine, unspecified formulation Oscar Nolan MD Work Phone: [facility] 07-21-2000 hepatitis B vaccine, pediatric or pediatric/adolescent dosage [facility] 07-21-2000 measles, mumps and rubella virus vaccine [facility] 1999 poliovirus vaccine, inactivated [facility] NEGATED: Highlighted row has not occurred!01-10-2021 tetanus toxoid, reduced diphtheria toxoid, and acellular pertussis vaccine, adsorbed DO Obdulia Oneil Work Phone: [facility] Payers Date Payer Category Payer Self-pay [id number] 2021 Medicaid (Managed Care) [facility] MEDICAID [id number] 1999 Unknown [id number] 2..840.1.893033.3.579.2. 647 1999 Unknown [id number] 2.16.840.1.901935.3.579.2. 593 1999 Unknown [id number] 2.16.840.1.350004.3.579.2. 593 1999 Unknown [id number] 2.16.840.1.308282.3.579.2. 593 1999 Unknown [id number] 2.16.840.1.467718.3.579.2. 593 1999 Unknown [id number] 2.16.840.1.670798.3.579.2. 593 1999 Unknown [id number] 2.16.840.1.521770.3.579.2. 9 1999 Unknown [id number] 2.16.840.1.126098.3.579.2. 1259 1999 Unknown [id number] 2.16.840.1.756692.3.579.2. 9 1999 Unknown [id number] 2.16.840.1.236271.3.579.2. 9 1999 Unknown [id number] 2.16840.1.137430.3.579.2. 9 1994 Medicaid HMO [employer] MEDICAID [id number] 1959 Private Health Insurance [id number] 1959 Unknown [id number] Unknown Matilda PETTY/KATHERINE [id number] Unknown [id number] 2.16840.1.561596.3.579.2. 531 Unknown [id number] 2.16840.1.470244.3.579.2. 531 Unknown [id number] 2.16840.1.295105.3.579.2. 531 Unknown [id number] 2.840.1.158566.3.579.2. 531 Unknown [id number] 2.16.840.1.235754.3.579.2. 531 Unknown [id number] 2.16.840.1.209400.3.579.2. 531 Unknown [id number] 2.16.840.1.098805.3.579.2. 531 Unknown [id number] 2.16.840.1.218583.3.579.2. 531 Unknown [id number] 2.16.840.1.343657.3.579.2. 531 Unknown [id number] 2.16.840.1.474806.3.579.2. 531 Unknown [id number] 2.16.840.1.318594.3.579.2. 531 Unknown [id number] 2.16.840.1.370259.3.579.2. 531 Unknown [id number] 2.16.840.1.474826.3.579.2. 531 Unknown [id number] 2.16.840.1.515528.3.579.2. 531 Unknown [id number] 2.16.840.1.991254.3.579.2. 531 Unknown [id number] 2.16.840.1.253460.3.579.2. 531 Unknown [id number] 2.16.840.1.878260.3.579.2. 531 Social History Date Type Detail Facility Start: 10-18-2021 End: 03-17-2024 Tobacco smoking status WVIS Never smoked tobacco (finding) [facility] Start: 2000 Sex Assigned At Female [facility] Start: 07-28-2022 End: 03-17-2024 Tobacco use and exposure Smokeless tobacco non-user [facility] Start: 02-03-2024 End: 03-20-2024 Alcoholic beverage intake Ex-drinker (finding) [facility] Start: 03-28-2020 End: 02-12-2023 History of Social function [facility] Start: 03-28-2020 End: 02-12-2023 Tobacco use panel [facility] Start: 08-24-2022 Education [facility] Start: 08-24-2022 Alcohol Comment none with preg sascha, Caffeine intake: none [facility] Start: 12[facility]01[facility]20[facility] Start: [facility] Sex assigned at Not on file [facility] Start: 04-29-2022 Gender identity Identifies as female gender (finding) [facility] Childcare Unknown [facility] Start: 09-20-2014 Sex Female (finding) [facility] NEGATED: Highlighted row [facility] Goals Date Patient Goal Desired Activity /State Personal health goal Functional Status Date Assessment Result Facility 02-13-2023 Functional status Patient Not at Baseline [facility] Work Phone: Mental Status Date Assessment Result Facility 02-13-2023 Cognitive function Cognitive Sta tus Patient Not at Baseline [facility] Work Phone: Clinical Notes 10-18-2021 to 03-09-2024 [...] nursing note reviewed. Exam conducted with a trimmer loader present. Vitals: Estimated body mass index is [...] or undercooked meat, and stay away from [facility]. Patient has been consulted regarding any further do's and don'ts of . Patient voiced understanding and all questions and concerns were answered. Discussed vaginal progesterone with patient and that medication will be stopped at 36 weeks gestation, and Celestone will be given at 32 weeks. Patient given early 1 hour gtt and MSAFP. Vaginal suppositories sent to [employer]. PVU Orders Placed This Encounter Procedures US OB transvaginal Alpha fetoprotein, maternal Glucose tolerance, 1 hour POCT urinalysis dipstick manually resulted Follow Up: Patient is to return in 4 weeks for routine OB appointment. Documented by Ce Curry LPN on behalf of: Camacho Hernandez DO documented in this encounter [facility] 02-03-2024 History of Present illness Narrative Reason [...] or undercooked meat, and stay away from [facility]. Patient has also been advised to not [...] Danay Velasquez MA documented in this encounter [facility] 02-13-2023 Procedure note [facility] 10-18-2021 History and physical note Note Date/Time October 18, 2021 1:40am [facility] [address] [place], [place] [id number] [employer] History & Physical Signed Patient: Rosette Alba MR#: [id number] : 2000 Acct:[id number] Age/Sex: 21 / F Adm Date: 2 Loc: Room: 1R0705-2 Type: ADM IN Attending Dr: Jennie Smith MD Copies to: Jennie Smith MD-[facility] Obdulia OneilDO~ Date of Service: 10/18/2021 Review of Systems Review of Systems All other systems reviewed & are negative unless noted below or in HPI OB [facility] Medical History (Updated 10/18/21 @ 01:30 by Jennie Smith MD) Anxiety Depression Thyroid disease No meds at present time. UTI (urinary tract infection) Surgical History (Updated 01/08/21 @ 21:48 by Marie Wynn RN) History of placement of ear tubes [employer] Hx : 5 : 4 Livin EDC [...] % (Auto) 73.3, Lymph % (Auto) 17.0, [place] % (Auto) 8.1, Eos % (Auto) 1.3, Baso % (Auto) 0.3, Neut # (Auto) 7.4, Lymph # (Auto) 1.7, [place] # (Auto) 0.8, Eos # (Auto) 0.1, Baso # (Auto) 0.0, Nucleated RBC % (auto) 0.1 10/18/21 00:27: Urine Color Yellow, Urine Appearance Cloudy A, Urine pH 6.5, Ur Specific [place] 1.020, Urine Protein Trace H, Urine Glucose [...] <Electronically signed by TELMA Smith> 10/18/21 0141 [facility] Work Phone: 1(832) 177-161509-03-2022 [facility] Diagnosis Onset Date Resolution Status 33 weeks gestation of acute [facility] Work Phone: evaluation noteNo assessment information available [facility] Work Phone: evaluation note* Diagnosis Onset Date Resolution Status 35 weeks gestation of [facility] Work Phone: evaluation note* Diagnosis Onset Date Resolution Status Iron deficiency anemia [facility] Work Phone: evaluation note* Diagnosis Missed menses , unspecified gestational age Encounter for supervision of normal first in first trimester documented in this encounter [facility]* Diagnosis Second trimester state, incidental 16 weeks gestation of History of delivery, currently with history of pre-term labor Diabetes mellitus screening Screening for diabetes mellitus History of gestational diabetes Personal history of other genital system and obstetric disorders documented in this encounter [facility] Dis[facility] instructions Additional Instructions You have a respiratory panel is pending you will be called with any positive results Push fluids Humidifier may be beneficial Tylenol only for your discomfort Follow-up with your PCP and your [employer] T[employer]ION[employer]ONWORKER call tomorrow for appointment Salt water gargles to soothe your throat Handwashing Rest Return here if any problems persist or worsen including abdominal pain, vaginal bleeding, increased pain, dyspnea or any other [facility] Work Phone: InstructionsNot on filedocumented in this encounter [facility] Summary Purpose Family History No Family History [...] section and content) DATE CREATED AUTHOR 10/16/2018 [facility] DATE CREATED AUTHOR AUTHOR'S ORGANIZ ATION 07/24/2022 [facility] DATE CREATED AUTHOR AUTHOR'S ORGANIZ ATION 12/17/2023 [facility] DATE CREATED AUTHOR AUTHOR'S ORGANIZ ATION 03/11/2024 [facility] EPIC DATE CREATED AUTHOR AUTHOR'S ORGANIZ ATION 03/22/2024 [facility] Care Teams (unrecognized sec tion and content) [...] Inactive Member Role Status Dates Nataly Toure NP-Anirudh Attending Provider Active Team Status: Active Member Role Status Dates Nataly Toure NP-Anirudh Primary Care Provider Active Team Status: Inactive Member Role Status Dates Nataly Toure NP-Anirudh Primary Care Provider, Attending Provider Active Team Status: Inactive Member Role Status Dates Nataly E Spasic , RESHIPPING CLERK-C Primary Care Provider Active Marcello Hudson DO Attending Provider Active Team Status: Inactive Member Role Status Dates Nataly E Shayleesic , RESHIPPING CLERK-C Primary Care Provider Active Mary Kay Cantu DO Attending Provider Active Team Status: Inactive Member Role Status Dates Nataly E Shayleesic , RESHIPPING CLERK-C Primary Care Provider Active Jennie Smith MD Attending Provider Active Team Status: Inactive Member Role Status Dates Nataly E Shayleesic , RESHIPPING CLERK-C Primary Care Provider Active Staci Ortiz APRN Emergency Provider Active Team Status: Inactive Member Role Status Dates Nataly Brian Junesic , RESHIPPING CLERK-C Attending Provider Active Services [facility] Primary Care Provider Ac tive [...] Role Status Dates Nataly Brian Toure , RESHIPPING CLERK-C Primary Care Provider Active Radha Molina DO Attending Provider Active Team Status: Inactive Member Role Status Dates Nataly Toure , RESHIPPING CLERK-C Primary Care Provider Active Ede Way MD [...] Role Status Dates Nataly Brian Junesic , RESHIPPING CLERK-C Primary Care Provider Active Start: January 21, 2023 End: January 21, 2023 Radha Molina DO Attending Provider Active S tart: January 21, 2023 End: January 21, 2023 Team Status: Inactive Member Role Status Dates Nataly E Shayleesic , RESHIPPING CLERK-C Primary Care Provider Active Start: January 22, 2023 End: January 22, 2023 Radha Molina DO Attending Provider Active S tart: January 22, 2023 End: January 22, 2023 Team Status: Inactive Member Role Status Dates Nataly Toure , RESHIPPING CLERK-C Primary Care Provider Active Start: January 30, 2023 End: January 31, 2023 Mary Kay Cantu DO Attending Provider Active Start: January 30, 2023 End: January 31, 2023 Team Status: Inactive Member Role Status Dates Nataly Toure , RESHIPPING CLERK-C Primary Care Provider Active Start: February 01, 2023 End: February 01, 2023 Radha Molina DO Attending Provider Active S tart: February 01, 2023 End: February 01, 2023 Team Status: Inactive Member Role Status Dates Nataly Toure , RESHIPPING CLERK-C Primary Care Provider Active Start: February 13, 2023 End: February 13, [address] MD Admit Provider, Atte nding Provider Active Start: February 13, 2023 End: February 13, 2023 Team Status: Inactive Member Role Status Dates Nataly Toure , RESHIPPING CLERK-C Attending Provider Active Start: March 04, 2023 End: March 04, 2023 Team Status: Active Member Role Status Dates Services [facility] Primary Care Provider Ac tive Team Status: Inactive Member Role Status Dates Nataly Toure , RESHIPPING CLERK-C Attending Provider Active Start: March 17, 2023 End: March 17, 2023 [facility]ly [facility] Primary Care Provider Ac tive Start: March 17, 2023 End: March 17, 2023 Team Status: Inactive Member Role Status Dates Nataly Toure , RESHIPPING CLERK-C Attending Provider Active Start: August 03, 2023 End: August 03, 2023 Team Status: Inactive Member Role Status Dates Nataly Toure , RESHIPPING CLERK-C Primary Care Provider Active Start: August 20, 2023 End: August 21, 2023 Carmelo Vinson DO Emergency Provider Active St art: August 20, 2023 End: August 21, 2023 Team Status: Inactive Member Role Status Dates Nataly Toure , RESHIPPING CLERK-C Primary Care Provider Active Start: September 26, 2023 End: September 27, 2023 Devon Leon PA-C Emergency Provider Active Start: September 26, 2023 End: September 27, 2023 Team Status: Inactive Member Role Status Dates Nataly Toure , RESHIPPING CLERK-C Primary Care Provi memanuel, Attending Provider Active Start: September 30, 2023 End: September 30, 2023 Team Status: Inactive Member Role Status Dates Nataly Toure , RESHIPPING CLERK-C Primary Care Provider Active Start: October 04, 2023 End: October 05, 2023 Carmelo Vinson DO Emergency Provider Active St art: October 04, 2023 End: October 05, 2023 Team Status: Inactive Member Role Status Dates Nataly Toure , RESHIPPING CLERK-C Primary Care Provi emmanuel, Attending Provider Active Start: October 07, 2023 End: October 07, 2023 Team Status: Inactive Member Role Status Dates Nataly Toure , RESHIPPING CLERK-C Primary Care Provi emmanuel, Referring Provider Active Start: October 20, 2023 End: October 20, 2023 Melania Arceo APRN Attending Provider Active Start: October End: October 20, 2023 Team Status: Active Member Role Status Dates Nataly Toure , RESHIPPING CLERK-C Primary Care Provi emmanuel, Referring Provider Active Start: October 20, 2023 Melania Arceo APRN Attending Provider Active Start: October Crnp Relationship Specialty Start Date End Date Unallocated, Jonny Chapa MD [facility] YOBANI [facility] [place] [address] PCP - General 06/29/22 Crnp Relationship Specialty Start Date End Date Unallocated, Jonny Chapa MD [facility] YOBANI ANDRADE [facility] [place] [address] PCP - General 06/29/22 Crnp Relationship Specialty Start Date End Date Unallocated, Jonny Chapa MD [facility] YOBANI ANDRADE [facility] [place] [address] PCP - General 06/29/22 Crnp Relationship Specialty Start Date End Date Unallocated, Jonny Chapa MD [facility] YOBANI ANDRADE [facility] [place] [address] PCP - General 06/29/22 Crnp Relationship Specialty Start Date End Date Martin Chapman MD [address] [place] [address] PCP - General Family Medicine 02/24/18 Goals [...] BE BASED ON THE PRIMARY CLINICAL RECORDS. [email or web address] provides no warranty or guarantee of the accuracy or completeness of information in this document.
== END 2024-04-06 20:07 | disposition home or self-care (01) ==
LOC: LAB 20:06
PROVIDERS: PCP Family Medicine; Visit Provider Physician Assistant
DX: Z01.419 Encounter for gynecological examination (general) (routine) without abnormal findings (principal)
CPT/HCPCS: 88175

== ENCOUNTER 2024-04-14 21:12 | Observation (INO) | payer OTHER, SELFPAY ==
--- OUTSIDE RECORDS SUMMARY | 2024-04-14 21:17 | XMS_ITS | CCD ---
Author Organization [facility] Care Team Providers Care Flooring Professional Name Role Phone EBWANDA, SHARLA Admitting Unavailable EBWANDA SHARLA Attending Unavailable OBDULIA ONEIL Referring Unavailable OBDULIA ONEIL Primary Care Unavailable [place] Procedure Practitioner Unavailab SHARLA Singh Surgeon Unavailable [place] Procedure Practitioner Unavailab AREN Ferguson Surgeon Unavailable DO Obdulia Oneil Primary Care Provider DO Radha Molina Attending Provider [phone] MD Jennie Smith Admit Provider MD Jennie Smith Attending Provider [phone] Spasic, LIVING MANAGER-C Nataly Torres Attending Provider Spasic, LIVING MANAGER-C Nataly Torres Primary Care Provider DO Marcello Hudson Attending Provider CORRINA DHALIWAL Attending Unavailable CORRINA DHALIWAL Consulting Unavailable REQUEST, NONE LISTED Primary Care Unavaila CORRINA Cuevas Admitting Unavailable FINA ., YNES MENDENHALL Consulting UnavailHarini Emerson, DR SIMENTAL Admitting Unavailable REQUEST, NONE LISTED Primary Care Unavaila ramona JOHNSON ., DR SIMENTAL Attending Unavailable HAY ., DR SIMENTAL Consulting Unavailable PERTA SALCIDO Consulting Unavailable MARKER ., DR DOLL [...] NONE LISTED Primary Care Unavaila ble Spasic, LIVING MANAGER-C Nataly E Primary Care Provider DO Mary Kay Cantu Attending Provider MD Jennie Smith Attending Provider [phone] CADE Ortiz Emergency Provider Spasic, LIVING MANAGER-C Nataly E Attending Provider [facility] Primary Care Prov ider DO Radha Molina Attending Provider Spasic, LIVING MANAGER-C Nataly E Primary Care Provider DO Mary Kay Cantu Attending Provider MD Jennie Smith Attending Provider [phone] CADE Ortiz Emergency Provider Spasic, LIVING MANAGER-C Nataly E Attending Provider [facility] Primary Care Prov ider DO Radha Molina Attending Provider NO FAMILY, PHYSICIAN Primary Care Provider Unava ilable MD Ede Way Admit Provider MD Ede Way Attending Provider Spasic, LIVING MANAGER-C Nataly E Primary Care Provider DO Mary Kay Cantu Attending Provider Spasic, LIVING MANAGER-C Nataly E Attending Provider DO Radha Molina Attending Provider [facility] Primary Care Prov ider Spasic, LIVING MANAGER-C Nataly E Attending Provider Spasic, LIVING MANAGER-C Nataly E Primary Care Provider DO Carmelo Vinson Emergency Provider RANDALL Leon Emergency Provider [phone] Spasic, LIVING MANAGER-C Nataly E Referring Provider CAED Arceo Racheal Attending Provider Spasic, Nataly E Primary [...] Attending Unavailable Spasic, Nataly E Admitting Unavailable [facility], Services Primary Care U navailable Spasic, Nataly E Consulting Unavailable Albertocki - [facility], Tino Sommer Attending Unava ilable Jannet - [facility], Tino Sommer Admitting Unava ilable Spasic, Nataly E Primary Care Unavailable Ede Way Admitting Unavailable Ede Way Attending Unavailable Spasic, Nataly E Primary Care Unavailable Indio Cantua Admitting Unavailable Indio Cantua Attending Unavailable Spasic, Nataly E Primary Care Unavailable Rinkes, Radha Admitting Unavailable Rinkes, Radha Attending Unavailable Unallocated MD Jonny Provider Primary Care Provi emmanuel Martin Chapman MD Primary Care Provider [phone] CAMACHO HERNANDEZ Attending Unavailable KIM KHOURY Attending Unavailable RADHA MOLINA Attending Unavailable RADHA MOLINA Referring Unavailable EDE WAY Referring Unavailable RADHA MOLINA Attending Unavailable RADHA MOLINA Referring Unavailable Allergies Allergy Classification Reported Allergen(s) Allergy Type Date of Onset Reaction(s) Facility (1 source) 52157,00 Drug allergy (disorder) 07-01-2012 [facility] Repository Medications Current Medications Medication Drug Class(es) Dates Sig (Normalized) Sig (Original) acetaminophen 325 mg / oxyCODONE hydrochloride 5 mg oral tablet (5 sources) Opioid Agonist Start: 09-26-2023 take 1 tablet by mouth every six hours Oxycodone-Acetami nophen (Percocet) 5-325 mg tablet Active 1 TAB PO Q6H 10 3 September 26, 2023 ALPRAZolam 0.25 mg oral tablet (1 source) Benzodiazepine Start: 10-20-2023 Alprazolam Active 0.25 MG PO As Directed October 20, 2023 12:00am azithromycin 250 mg oral tablet (7 sources) Macrolide Antimicrobial Start: 04-06-2024 azithromycin (Zithromax Z-Valencia) 250 MG tablet Indications: URI, acute As directed 6 tablet 04/06/2024 Active Start: 02-24-2018 azithromycin ( ZITHROMAX Z-VALENCIA) 250 mg tablet Take 2 tablets the first day then 1 tablet every day for 4 days. 6 tablet 02/24/2018 Active ferrous sulfate 325 mg delayed release oral tablet (15 sources) Start: 10-20-2023 take 325 mg by mouth once daily Ferrous Sulfate Active 325 MG PO Daily October 20, 2023 12:00am take 1 tablet by long once daily at breakfast ferrous sulfate 325 [...] MG PO Daily October 20, 2023 12:00am methylPREDNISolone (20 sources) Corticosteroid Start: 04-06-2024 methylPREDNISolone (Medrol Dospak) 4 MG tablets Indications: URI, acute Day 1: 6 tablets Day 2: 5 tablets Day 3: 4 tablets Day 4: 3 tablets Day 5: 2 tablets Day 6: 1 tablet 21 tablet 04/06/2024 Active Start: 09-26-2023 End: 10-20-2023 take 1 tablet [...] 08, 2021 10:36pm orally per package directions 25/iron fum/folic/dha (-1 ORAL) (3 sources) 25/iron fum/folic/dha (-1 ORAL) Take by mouth. Active progesterone (FIRST-PROGESTERONE VGS) 200 mg suppository (2 sources) progesterone (FIRST-PROGESTERONE VGS) 200 mg suppository Insert 1 suppository (200 mg total) into the vagina nightly. Active Progesterone 200 MG suppository (7 sources) Start: 03-09-19 End: 04-08-19 Progesterone 200 MG suppository Indications: History of delivery, currently Insert 200 mg into the vagina at bedtime Insert suppository vaginally every night at bedtime 30 suppository 6 03/09/2024 04/08/2024 Active venlafaxine 100 mg oral tablet (20 sources) Serotonin and Norepinephrine Reuptake Inhibitor Start: 10-20-19 take 50 mg by mouth twice daily Venlafaxine Active 50 MG PO Twice daily October 20, 2023 12:00am Start: 03-18-2023 take 1 capsule by mo uth once daily at mealtime venlafaxine XR (Effexor XR) 75 MG 24 hr capsule TAKE 1 CAPSULE BY MOUTH ONCE DAILY WITH FOOD 03/18/2023 Active Start: 06-23-2022 End: 11-19-2022 take 37.5 mg by mouth once daily at bedtime Venlafaxine Discontinued 37.5 MG PO Daily at bedtime June 23, 2022 12:00am November 19, 2022 12:21pm take [address] [facility] every twenty-four hours in the morning [...] by mouth every four hours Hydrocodone-Acetam inophen ([place]) 5-325 mg tablet Discontinued 2 TAB PO [...] Discontinued 1 TAB PO Twice daily 14 7 November 15, 2017 12:00am November 22, 2017 [...] hours Cephalexin Discontinued 500 MG PO Q8H 29 06September 26, 2023 12:00am October 20, 2023 8:30am [...] 20, 2017 1:01pm 168 hr ethinyl estradiol 0.73053 mg/hr / norelgestromin 0.34043 mg/hr transdermal system (20 sources) Progestin, Estrogen [...] 10, 2020 12:00am January 08, 2021 10:30pm NIFEdipine 10 mg oral capsule (20 sources) Dihydropyridine Calcium Channel Aruna Start: 11-20-2022 End: 02-13-2023 take 10 mg by mouth four times daily Nifedipine Discontinued 10 MG PO Four times daily November 20, 2022 12:00am February 13, 2023 7:43pm Stillmore-3 Fatty Acids-Fish Oil (20 sources) Start: 06-23-2022 End: 11-19-2022 take 1 capsule by mouth once daily Stillmore-3 Fatty Acids-Fish Oil Discontinued 1 CAP PO Daily June 22, 2022 11:00pm November 19, 2022 11:22am Start: 06-23-2022 End: 11-19-2022 take 1 capsule by mouth once daily Stillmore-3 Fatty Acids-Fish Oil Discontinued 1 CAP PO Daily June 23, 2022 12:00am November 19, 2022 12:22pm Start: 06-23-2022 take [address] [facility] once daily Stillmore-3 Fatty Acids-Fish Oil Active 1 CAP PO [...] 07, 2017 12:00am November 12, 2017 12:01am Zrcrwtvw-Wxj-Si-Fa () 1 mg Tablet (20 sources) Start: 11-19-2022 End: 02-13-2023 take 1 tablet by mouth once daily Bilbwlzb-Khq-Gp-Fa () 1 mg Tablet Discontinued 1 TAB PO Daily November 19, 2022 12:00am February 13, 2023 7:43pm Start: 11-19-2022 End: 02-13-2023 take 1 tablet by mouth once daily Qzrhuacv-Xix-Pk-Fa () 1 mg Tablet Discontinued 1 TAB PO Daily November 18, 2022 11:00pm February 13, 2023 6:43pm Start: 11-19-2022 take 1 tablet by long th once daily Batkbjgr-Irk-Ux-Fa () 1 mg Tablet Active 1 TAB PO Daily November 18, 2022 11:00pm Start: 11-19-2022 take 1 tablet by long th once daily Mjbjevvs-Del-Od-Fa () 1 mg Tablet Active 1 TAB [...] Tramadol Discontinued 50 MG PO Q6H 30 June 29, 2022 12:00am November 19, 2022 [...] Problem Date Documented Date Episodic/Chronic Anxiety disorders (20 sources) Anxiety; Translations: [Anxiety disorder, unspecified] Onset: [...] unspecified; Translations: [Pure hyperglyceridemia] Onset: 06-04-2022 Chronic Early or threatened labor (4 sources) labor without delivery, unspecified trimester; Translations: [ delivery following section] Onset: 01-21-2023 04-13-2024 Episodic Genitourinary symptoms and ill-defined conditions (1 source) [...] lymph nodes] Onset: 09-30-2023 Episodic Menstrual disorders (20 sources) Missed period; Translations: [Irregular menstruation, unspecified] Onset: 06-25-2022 02-03-2024 Chronic Mood disorders (20 sources) Depressive disorder; Translations: [Depression] 02-15-2019 Chronic Other complications of (1 source) Other specified related conditions, first trimester; Translations: [OTH SPEC PREG RELATED COND 1ST TRI] Onset: 07-14-2022 Episodic Other complications of (18 sources) H/O: premature delivery; Translations: [Supervision of other high risk pregnancies, unspecified trimester] Onset: 06-25-2022 06-25-2022 Episodic Other female genital disorders (20 sources) H/O: normal delivery; Translations: [Status post normal vaginal delivery] 01-09-2021 Episodic Other female genital disorders (2 sources) Vaginal discharge; Translations: [Other specified noninflammatory disorders of vagina] 04-06-2024 Episodic Other lower respiratory disease (1 source) Shortness of breath; Translations: [Shortness of breath] Onset: 09-30-2023 Episodic Other nervous system disorders (1 source) Other chronic pain; Translations: [OTHER CHRONIC PAIN] Onset: 03-17-2022 Chronic Other nutritional; endocrine; and metabolic disorders (1 source) Obesity, unspecified; Translations: [Obesity, unspecified] Onset: 03-04-2023 Chronic Other and delivery including normal (6 sources) ; Translations: [Encounter for supervision of [...] [16 weeks gestation of ] 03-09-2024 Episodic Residual codes; unclassified (2 sources) Gestation period, 20 weeks; Translations: [20 weeks gestation of ] 04-06-2024 Episodic Spondylosis; intervertebral disc disorders; other back [...] screening for Streptococcus B] Onset: 01-05-2023 Unclassified (11 sources) OB Reminders Onset: 09-02-2022 09-02-2022 Urinary [...] tolerance complicating ; childbirth; or the puerperium (14 sources) Abnormal glucose complicating ; Translations: [Gestational diabetes mellitus] Onset: 06-25-2022 06-25-2022 Episodic Nutritional deficiencies (2 sources) Iron deficiency; [...] TRI] Onset: 08-11-2021 Episodic Other complications of (11 sources) Finding related to ; Translations: [Other specified related conditions, third trimester] Onset: 06-25-2022 06-25-2022 Episodic Polyhydramnios and other problems of amniotic cavity (11 sources) Polyhydramnios with problem; Translations: [Polyhydramnios, third [...] Test Name Value Interpretation Reference Range Facility IGP,APTIMA HPV,AGE GDLNon AGE GDLN ACOG TESTING Note . [facility] Comment on above: TESTS RESULT FLAG UN ITS REF RANGE LAB Clinician Provided Cytology Information Source.............Cervix No. of containers..01 ThinPrep Vial Age Dodie SUTTON Rossana... FLAG LEGEND: L-Low Normal,H-High Normal,LL-Alert Low,HH-Alert High <-Panic Low,>-Panic High,A-Abnormal,AA-Critical Abnormal Performed at: 01 =[facility] [address] [place] [address] Christina Chan MD, IGP, RFX APTIMA HPV ASCU Note . [facility] Comment on above: TESTS RESULT FLAG UN ITS REF RANGE LAB DIAGNOSIS: 02 NEGATIVE FOR INTRAEPITHELIAL LESION OR MALIGNANCY. Specimen adequacy: 02 Satisfactory for evaluation. No endocervical component is identified. Performed by: Dereje Kaufman Warehouse Order Filler ([facility]) . 02 Note: Note 02 The Pap smear is a screening test designed to aid in the detection of premalignant and malignant conditions of the uterine cervix. It is not a diagnostic procedure and should not be used as the sole means of detecting cervical cancer. Both false-positive and false-negative reports do occur. Test Methodology: Note 02 This liquid based ThinPrep(R) pap test was screened with the use of an image guided system. . 02 The HPV DNA reflex criteria were not met with this specimen result therefore, no HPV testing was performed. FLAG LEGEND: L-Low Normal,H-High Normal,LL-Alert Low,HH-Alert High <-Panic Low,>-Panic High,A-Abnormal,AA-Critical Abnormal Performed at: [address] [address] Christina Chan MD, Performed at: =[address] [id number] [place] [employer]: Christina Chan MD, Phone: [phone] Performed at: [address] [id number] [place] [employer]: Christina Chan MD, Phone: [phone] [facility] RECURRENT VAGINITIS (HTRX)on 04-07-2024 ATOPOBIUM VAGINAE 0 [facility] ATOPOBIUM VAGINAE Not detected [facility] BVAB 2,3 (BACTERIAL VAGINOSIS ASSOCIATED BACTERIA 2, 3); MOBILUNCUS SPP 0 [facility] BVAB 2,3 (BACTERIAL VAGINOSIS ASSOCIATED BACTERIA 2, 3); MOBILUNCUS SPP Not detected [facility] CURT ALBICANS, PARAPSILOSIS, TROPICALIS 0 [facility] CURT ALBICANS, PARAPSILOSIS, TROPICALIS Not detected [facility] CURT GLABRATA 0 [facility] CURT GLABRATA Not detected [facility] CURT KRUSEI 0 [facility] CURT KRUSEI Not detected [facility] CHLAMYDIA TRACHOMATIS 0 [facility] CHLAMYDIA TRACHOMATIS Not detected N S [facility] GARDNERELLA VAGINALIS 0 [facility] GARDNERELLA VAGINALIS Not detected N [facility] MEGASPHAERA (TYPES 1, 2) 0 [facility] MEGASPHAERA (TYPES 1, 2) Not detected [facility] MYCOPLASMA GENITALIUM 0 [facility] S [facility] MYCOPLASMA GENITALIUM Not detected N [facility] NEISSERIA GONORRHOEAE 0 [facility] NEISSERIA GONORRHOEAE Not detected N [facility] TRICHOMONAS VAGINALIS 0 [facility] TRICHOMONAS VAGINALIS Not detected N [facility] Urinalysis macro (dipstick) panel (U)on 04-06-2024 Bilirubin, UA Negative Negative - 4(70) +++ mg/dL [facility] Blood, UA Negative Negative - 50 Isaac/mcL [facility] Clarity, UA Clear [facility] Color, UA Yellow [facility] Glucose, UA Negative Negative - 1999(110) ++++ mg/dL [facility] Interpretation and review of laboratory results Normal [facility] Ketones, UA Negative Negative - 160(16) ++++ mg/dL [facility] Leukocytes, UA Negative Negative - 500+++ Shreya/mcL [facility] Nitrite, UA Negative Negative - Positive [facility] pH, UA 8.5 5 - 9 [facility] Protein, UA Negative Negative - 1999(20) ++++ mg/dL [facility] Spec Grav, UA 1.02 1 - 1.03 [facility] Urobilinogen, UA 1.0 0.2 - 12 mg/dL [facility] ED Note - Physicianon 2024 ED Note - Physician [id number]#1.00OTGTI FF [facility] Rad - Other Radiology Report on 03-20-2024 Rad - Other Radiology Report [id number]#1.00OTGTI FF [facility] Rad - Other Radiology Report on 03-14-2024 Rad - Other Radiology Report [id number]#1.00OTGTIF F [facility] US OB CERVICAL LENGTHon 02-16 [place] [address] Ultrasound Report Signed Patient: ROSETTE ALBA MR#: [id number] : 2000 Acct:[id number] Age/Sex: 23 / F ADM Date: 03/14/24 Loc: US Attending Dr: Camacho Hernandez D.O. Ordering Physician: Camacho Hernandez D.O. Date of Service: 03/14/24 Procedure(s): US OB cervical length Accession Number(s): [id number] cc: Camacho Hernandez D.O.; OBDULIA ONEIL [place] [address] Patient Name: ROSETTE ALBA MRN: [facility]:[id number] date: 2000 Sex: F Assigned Patient Location: US Current Patient Location: Accession/Order Number: [id number] Exam Date: 03/14/2024 09:32 Report Date: 03/14/2024 [...] Signed By: 03/14/24 1006 DD/ 1003 TD/TT: Feather Maker: [facility] Radiology, Radiologi MD barry - 03/14/2024 [place] [address] Ultrasound Report Signed Patient: ROSETTE ALBA MR#: [id number] : 2000 Acct:[id number] Age/Sex: 23 / F ADM Date: 03/14/24 Loc: US Attending Dr: Camacho Hernandez D.O. Ordering Physician: Camacho Hernandez D.O. Date of Service: 03/14/24 Procedure(s): US OB cervical length Accession Number(s): [id number] cc: Camacho Hernandez D.O.; OBDULIA ONEIL [place] [id number] Patient Name: ROSETTE ALBA MRN: [facility]:[id number] date: 2000 Sex: F Assigned Patient Location: Current Patient Location: US Accession/Order Number: [id number] Exam Date: 03/14/2024 09:32 Report Date: 03/14/2024 [...] Signed By: 03/14/24 1006 DD/ 1003 TD/TT: Feather Maker: [facility] Radiology Study observation (narrative) [facility] US OB CERVICAL LENGTHOrdered By: Radiologist Radiology on 03-14-2024 [facility] Work Phone: Urinalysis macro (dipstick) panel (U)on 03-09-2024 Bilirubin, UA Negative Negative - 4(70) +++ mg/dL [facility] Blood, UA Negative Negative - 50 Isaac/mcL [facility] Clarity, UA Clear [facility] Color, UA Yellow [facility] Glucose, UA Negative Negative - 2000(110) ++++ mg/dL [facility] Interpretation and review of laboratory results Normal [facility] Ketones, UA Negative Negative - 160(16) ++++ mg/dL [facility] Leukocytes, UA Negative Negative - 500+++ Shreya/mcL [facility] Nitrite, UA Negative Negative - Positive [facility] pH, UA 7.5 5 - 9 [facility] Protein, UA Negative Negative - 1999(20) ++++ mg/dL [facility] Spec Grav, UA 1.02 1 - 1.03 [facility] Urobilinogen, UA 1.0 0.2 - 12 mg/dL [facility] Free Cell DNAon [address] [facility] BOX TESTon 02-25-2024 BOX TEST SENT OUT [facility] BOX1 [facility] BOX2 02/25/2024 [facility] HCG ( test) Ql (U)o n 02-03-2024 Interpretation and review of laboratory results Abnormal [facility] Preg Test, Ur Positive Negative [facility] Rad - Ultrasound Reporton Rad - Ultrasound Report [id number]#1.00OTGTIF F [facility] Urinalysis macro (dipstick) panel (U)on 02-03-2024 Bilirubin, UA Negative Negative - 4(70) +++ mg/dL [facility] Blood, UA Negative Negative - 50 Isaac/mcL [facility] Clarity, UA Clear [facility] Color, UA Yellow [facility] Glucose, UA Negative Negative - 1999(110) ++++ mg/dL [facility] Interpretation and review of laboratory results Abnormal [facility] Ketones, UA Negative Negative - 160(16) ++++ mg/dL [facility] Leukocytes, UA Negative Negative - 500+++ Shreya/mcL [facility] Nitrite, UA Negative Negative - Positive [facility] pH, UA 5.5 5 - 9 [facility] Protein, UA Positive Negative - 1999(20) ++++ mg/dL [facility] Comment on above: 100 Spec Grav, UA 1.03 1 - 1.03 [facility] Urobilinogen, UA 0.2 0.2 - 12 mg/dL [facility] Rad - Other Radiology Report on 01-07-2024 Rad - Other Radiology Report [id number]#1.00OTGTIFF [facility] Outside Recordson 12-14-2023 Outside Records [id number]#1.00OTGTIF F [facility] Outside Records [id number]#1.00OTGTIF F [facility] US liveron 10-07-2023 liver [facility] Main [address] [address] Ultrasound Report Signed Patient: Rosette Alba MR#: [id number] : 2000 Acct:[id number] Age/Sex: 23 / F ADM Date: 10/07/23 Loc: Room: Type: [facility] Attending Dr: Nataly BOND Ordering Provider: RONDA [...] FINDINGS.. Impression dictated by: Richard Kirkland Jr., Cielo10/07/2023 11:25 AM Dictation Location: [place] [address] Tech: Marie Trimblees Transcribed By: ANDREY 10/07/23 1125 Dictated By: Richard Kirkland Jr, DO 10/07/23 1123 Signed By: 10/07/23 1125 Normal [facility] thyroidon 10-07-2023 thyroid [facility] Main [address] [address] Ultrasound Report Signed Patient: Rosette Alba MR#: [id number] : 2000 Acct:[id number] Age/Sex: 23 / F ADM Date: 10/07/23 Loc: UL Room: Type: [facility] CLI Attending Dr: Nataly BOND Ordering [...] Kirkland Jr., D.O.10/07/2023 11:26 AM Dictation Location: [place] [address] Tech: Marie Trimblees Transcribed By: ANDREY 10/07/23 1126 Dictated By: Richard Kirkland Jr, DO 10/07/23 1125 Signed By: 10/07/23 1126 Normal The [facility] XR KUBon 10-07-2023 XR KUB [facility] [place] [address] XRay Report Signed Patient: Rosette Alba MR#: [id number] : 2000 Acct:[id number] Age/Sex: 23 / F ADM Date: 10/07/23 Loc: Room: Type: [facility] CLI Attending Dr: Nataly BOND Copies to: RONDA [...] process. Impression dictated by: Richard Kirkland Jr., D.OIdania10/07/2023 8:50 AM Dictation Location: [place] [address] Transcribed By: [facility] 10/07/23 0850 Dictated By: Richard Kirkland Jr, DO 10/07/23 0849 Signed By: 10/07/23 0850 Normal The [facility] Physician [employer] Bacteria [Presence] in Urine by AutomatedOrdered By: Carmelo Vinson on 10-04-2023 Bacteria Auto Ql (U) None seen [HPF] None Seen [facility] Bilirubin Test strip Ql (U)O rdered By: Carmelo Vinson on 10-04-2023 Bilirubin Ql (U) Negative Negative [facility] Color of Urine by AutoOrdere d By: Carmelo Vinson on 10-04-2023 Color (U) Yellow Normal Yellow [facility] Comment on above: Order Comment: Name Collection Type:: Clean-Voided Midstream Performed By: #### A DDONUAPLUS, UHCG #### [place] [address] [place] Dipstick and Microscopicon 0 10-04-2023 Bacteria,Urine None Seen Normal None Seen The [facility] Comment on above: Order Comment: Name Collection Type:: Clean-Voided Midstream Performed By: #### A DDONUAPLUS, UHCG #### [facility] [address] [place] [address] [place] Bilirubin,Urine Negative Normal Negative The [facility] Comment on above: Order Comment: Name Collection Type:: Clean-Voided Midstream Performed By: #### A DDONUAPLUS, UHCG #### [facility] [address] [place] [id number] [place] Glucose Ql (U) Normal Normal Normal [facility] Comment on above: Order Comment: Name Collection Type:: Clean-Voided Midstream Performed By: #### A DDONUAPLUS, UHCG #### [facility] [address] [place] [address] Hyaline Casts,Urine 0-8 Normal 0-8 The [facility] Comment on above: Order Comment: Name Collection Type:: Clean-Voided Midstream Performed By: #### A DDONUAPLUS, UHCG #### [address] Mucus,Urine 4+ Critically abnormal The [facility] Comment on above: Order Comment: Name Collection Type:: Clean-Voided Midstream Performed By: #### A DDONUAPLUS, UHCG #### [address] Nitrite,Urine Negative Normal Negative The [facility] Comment on above: Order Comment: Name Collection Type:: Clean-Voided Midstream Performed By: #### A DDONUAPLUS, UHCG #### [address] Occult Blood,Urine Negative Normal Negative The [facility] Comment on above: Order Comment: Name Collection Type:: Clean-Voided Midstream Performed By: #### A DDONUAPLUS, UHCG #### [address] RBC,Urine 1-2 Normal 0-4 [facility] Comment on above: Order Comment: Name Collection Type:: Clean-Voided Midstream Performed By: #### A DDONUAPLUS, UHCG #### [address] Specificy [place],Urine 1.039 High 1.001-1.03 0 [facility] Comment on above: Order Comment: Name Collection Type:: Clean-Voided Midstream Performed By: #### A DDONUAPLUS, UHCG #### [place] [address] [place] Squamous Epithelial Cell,Urine 5-9 High 0-2 [facility] Comment on above: Order Comment: Name Collection Type:: Clean-Voided Midstream Performed By: #### A DDONUAPLUS, UHCG #### [address] Urobilinogen,Urine 2 mg/dL High Normal [facility] Comment on above: Order Comment: Name Collection Type:: Clean-Voided Midstream Performed By: #### A JOSE [facility] #### [address] WBC,Urine 3-4 Normal 0-4 [facility] Comment on above: Order Comment: Name Collection Type:: Clean-Voided Midstream Performed By: #### A BERTHAUALETICIA [facility] #### [address] Epithelial cells.squamous [# /area] in Urine sediment by Automated countOrdered By: Carmelo Vinson on 10-04-2023 Epithelial cells.squamous Auto (Urine sed) [#/Area] 5-9 [HPF] High 0-2 [facility] Erythrocytes [#/area] in Uri ne sediment by Automated countOrdered By: Carmelo Vinson on 10-04-2023 RBC Auto (Urine sed) [#/Area] 1-2 [HPF] 0-4 [facility] Glucose [Mass/volume] in Uri ne by Test stripOrdered By: Carmelo Vinson on 10-04-2023 Glucose Test strip (U) [Mass/Vol] Normal mg/dL Normal [facility] HCG ( test) IA.rapi d Ql (U)Ordered By: PROVIDER TEMP on 10-04-2023 HCG ( test) Ql (U) Negative [facility] HCG,Urineon 10-04-2023 Beta HCG ( test) Ql (U) Negative Normal [facility] Comment on above: Order Comment: Name Collection Type:: Clean-Voided Midstream Result Comment: PERF ORMED BY: [place] [address] PATHOLOGIST GANTRY RIGGER ALLA OROZCO M.D. Performed By: #### A JOSE [facility] #### [address] Hemoglobin Test strip Ql (U) Ordered By: Carmelo Vinson on 10-04-2023 Hemoglobin Ql (U) Negative Negative [facility] Hyaline casts [#/area] in Ur ine sediment by Automated countOrdered By: Carmelo Vinson on 10-04-2023 Hyaline casts Auto (Urine sed) [#/Area] 0-8 [LPF] 0-8 [facility] Ketones [Presence] in Urine by Test stripOrdered By: Carmelo Vinson on 10-04-2023 Ketones Ql (U) Trace High Negative [facility] Comment on above: Order Comment: Name Collection Type:: Clean-Voided Midstream Performed By: #### A DDONUAPLUS, CG #### [facility] [address] [place] [address] [place] Leukocyte esterase [Presence ] in Urine by Test stripOrdered By: Carmelo Vinson on 10-04-2023 Leukocyte esterase Test strip Ql (U) Negative Normal Negative [facility] Comment on above: Order Comment: Name Collection Type:: Clean-Voided Midstream Performed By: #### A DDONUAPLUS, CG #### [place] [address] [place] Leukocytes [#/area] in Urine sediment by Automated countOrdered By: Carmelo Vinson on 10-04-2023 WBC Auto (Urine sed) [#/Area] 3-4 [HPF] 0-4 [facility] Mucus [Presence] in Urine by AutomatedOrdered By: Carmelo Vinson on 10-04-2023 Mucus Auto Ql (U) 4+ [LPF] Abnormal [facility] Nitrite Test strip Ql (U)Ord ered By: Carmelo Vinson on 10-04-2023 Nitrite Ql (U) Negative Negative [facility] Protein [Mass/volume] in Uri ne by Test stripOrdered By: Carmelo Vinson on 10-04-2023 Protein (U) [Mass/Vol] 30 mg/dL High Negative [facility] Comment on above: Order Comment: Name Collection Type:: Clean-Voided Midstream Performed By: #### A DDONUAPLUS, UHCG #### [place] [address] [place] Specific gravity Test strip (U) [Rel density]Ordered By: Carmelo Beckmanynes on 10-04-2023 Specific gravity (U) [Rel density] 1.039 High 1.001-1.03 0 [facility] Urine appearanceOrdered By: Carmelo Beckmanynes on 10-04-2023 Appearance (U) Clear Normal Clear [facility] Comment on above: Order Comment: Name Collection Type:: Clean-Voided Midstream Performed By: #### A JOSE [place] #### [facility] [address] Urobilinogen Test strip (U) [Mass/Vol]Ordered By: Carmelo Alisson on 10-04-2023 Urobilinogen (U) [Mass/Vol] 2 mg/dL High Normal [facility] pH of Urine by Test stripOrd ered By: Carmelo Alisson on 10-04-2023 pH (U) 6.0 [pH] Normal 5.0-9.0 [facility] Comment on above: Order Comment: Name Collection Type:: Clean-Voided Midstream Performed By: #### A JOSE [place] #### [address] Alanine aminotransferase [En zymatic activity/volume] in Serum or PlasmaOrdered By: Nataly Toure on 09-30-2023 ALT [Catalytic activity/Vol] 14 U/L Normal 7-52 [facility] Comment on above: Order Comment: Reaso n for Exam Adenopathy Reason for Exam Iron deficiency Reason for Exam Hypothyroidism, unspecified type Performed By: #### C USTB #### [place] [address] [place] Albumin [Mass/volume] in Ser um or Plasma by Bromocresol green (BCG) dye binding methoOrdered By: Nataly Toure on 09-30-2023 Albumin BCG dye [Mass/Vol] 4.2 g/dL 3.5-5.7 [facility] Alkaline phosphatase [Enzyma tic activity/volume] in Serum or PlasmaOrdered By: Nataly Toure on 09-30-2023 ALP [Catalytic activity/Vol] 80 U/L Normal 34-104 [facility] Comment on above: Order Comment: Reaso n for Exam Adenopathy Reason for Exam Iron deficiency Reason for Exam Hypothyroidism, unspecified type Performed By: #### C USTB #### [address] Aspartate aminotransferase [ Enzymatic activity/volume] in Serum or PlasmaOrdered By: Nataly Jerniganc on 09-30-2023 AST [Catalytic activity/Vol] 10 U/L Low 13-39 [facility] Comment on above: Order Comment: Reaso n for Exam Adenopathy Reason for Exam Iron deficiency Reason for Exam Hypothyroidism, unspecified type Performed By: #### C USTB #### [address] Automated basophil %Ordered By: Nataly Toure on 09-30-2023 Basophils/100 WBC (Bld) 0.5 % Normal . [facility] Comment on above: Order Comment: Reaso n for Exam Adenopathy Performed By: #### C USTB #### [address] Automated basophil countOrde red By: Nataly Toure on 09-30-2023 Basophils (Bld) [#/Vol] 0.0 10*3/uL Normal 0.0-0.2 [facility] Comment on above: Order Comment: Reaso n for Exam Adenopathy Result Comment: PERF ORMED BY: [place] [address] PATHOLOGIST GANTRY RIGGER ALLA OROZCO M.D. Performed By: #### C USTB #### [address] Automated blood monocyte cou ntOrdered By: Nataly Jerniganc on 09-30-2023 Monocytes (Bld) [#/Vol] 0.7 10*3/uL Normal 0.0-0.8 [facility] Comment on above: Order Comment: Reaso n for Exam Adenopathy Performed By: #### C USTB #### [address] Automated eosinophil %Ordere d By: Nataly Toure on 09-30-2023 Eosinophils/100 WBC (Bld) 0.4 % Normal . [facility] Comment on above: Order Comment: Reaso n for Exam Adenopathy Performed By: #### C USTB #### [facility] [address] Automated eosinophil countOr dered By: Natalyharlan Toure on 09-30-2023 Eosinophils (Bld) [#/Vol] 0.0 10*3/uL Normal 0.0-0.45 [facility] Comment on above: Order Comment: Reaso n for Exam Adenopathy Performed By: #### C USTB #### [facility] [address] Automated monocyte %Ordered By: Nataly Toure on 09-30-2023 Monocytes/100 WBC (Bld) 8.0 % Normal . [facility] Comment on above: Order Comment: Reaso n for Exam Adenopathy Performed By: #### C USTB #### [facility] [address] Automated neutrophil %Ordere d By: Nataly Toure on 09-30-2023 Neutrophils/100 WBC (Bld) 58.7 % Normal . [facility] Comment on above: Order Comment: Reaso n for Exam Adenopathy Performed By: #### C USTB #### [facility] [address] [place] [address] Bilirubin.total [Mass/volume ] in Serum or PlasmaOrdered By: Nataly Toure on 09-30-2023 Bilirubin [Mass/Vol] 0.3 mg/dL Normal 0.3-1.0 [facility] Comment on above: Order Comment: Reaso n for Exam Adenopathy Reason for Exam Iron deficiency Reason for Exam Hypothyroidism, unspecified type Performed By: #### C USTB #### [facility] [address] [place] [address] Calcium [Mass/volume] in Ser um or PlasmaOrdered By: Nataly Toure on 09-30-2023 Calcium [Mass/Vol] 9.3 mg/dL Normal 8.6-10.3 [facility] Comment on above: Order Comment: Reaso n for Exam Adenopathy Reason for Exam Iron deficiency Reason for Exam Hypothyroidism, unspecified type Performed By: #### C USTB #### [facility] [address] [place] [address] Carbon dioxide, total [Moles /volume] in Serum or PlasmaOrdered By: Nataly Toure on 09-30-2023 CO2 [Moles/Vol] 29.9 mmol/L Normal 21.0-31.0 [facility] Comment on above: Order Comment: Reaso n for Exam Adenopathy Reason for Exam Iron deficiency Reason for Exam Hypothyroidism, unspecified type Performed By: #### C USTB #### [facility] [address] [place] [address] Chloride [Moles/volume] in S rosa or PlasmaOrdered By: Nataly Toure on 09-30-2023 Chloride [Moles/Vol] 103 mmol/L Normal 98-107 [facility] Comment on above: Order Comment: Reaso n for Exam Adenopathy Reason for Exam Iron deficiency Reason for Exam Hypothyroidism, unspecified type Performed By: #### C USTB #### [facility] [address] [place] [address] Complete Blood Count Auto Di ffon 09-30-2023 Mean Corpuscular HGB Conc 33.2 g/dL Normal 32.0-35.0 [facility] Comment on above: Order Comment: Reaso n for Exam Adenopathy Performed By: #### C USTB #### [facility] [address] [place] [address] NRBC% 0.1 /100{WBC} Normal 0-0.5 [facility] Comment on above: Order Comment: Reaso n for Exam Adenopathy Performed By: #### C USTB #### [facility] [address] [place] [address] Comprehensive Metabolic Pane marco 09-30-2023 Albumin [Mass/Vol] 4.2 g/dL Normal 3.5-5.7 [facility] Comment on above: Order Comment: Reaso n for Exam Adenopathy Reason for Exam Iron deficiency Reason for Exam Hypothyroidism, unspecified type Performed By: #### C USTB #### [place] [id number] [facility] GFR/1.73 sq M.predicted MDRD (S/P/Bld) [Vol rate/Area] mL/min/{1.73_m2} Normal [facility] Comment on above: Order Comment: Reaso n for Exam Adenopathy Reason for Exam Iron deficiency Reason for Exam Hypothyroidism, unspecified type Performed By: #### C USTB #### [place] [id number] [facility] Creatinine [Mass/volume] in Serum or PlasmaOrdered By: Nataly Toure on 09-30-2023 Creatinine [Mass/Vol] 0.73 mg/dL Normal 0.60-1.20 [facility] Comment on above: Order Comment: Reaso n for Exam Adenopathy Reason for Exam Iron deficiency Reason for Exam Hypothyroidism, unspecified type Performed By: #### C USTB #### [place] [id number] [facility] D-Dimer High Sensitivityon 0 09-30-2023 D-Dimer High Sensitivity < 200 Normal 0-243 [facility] Comment on above: [...] coagulation studies. Please contact the laboratory at [phone] for redraw instructions. PERFORMED BY: [place] [address] PATHOLOGIST GANTRY RIGGER ALLA OROZCO M.D. Performed By: #### G TT3 #### [address] Erythrocyte distribution wid th [Ratio] by Automated countOrdered By: Nataly Toure on 09-30-2023 Erythrocyte distribution width (RBC) [Ratio] 15.0 % Normal 11.9-15.3 [facility] Comment on above: Order Comment: Reaso n for Exam Adenopathy Performed By: #### C USTB #### [address] Erythrocytes [#/volume] in B lood by Automated countOrdered By: Nataly Toure on 09-30-2023 RBC (Bld) [#/Vol] 4.79 10*6/uL Normal 3.60-5.00 [facility] Comment on above: Order Comment: Reaso n for Exam Adenopathy Performed By: #### C USTB #### [address] Fibrin D-dimer [Presence] in Platelet poor plasma by Latex agglutinationOrdered By: Nataly Toure on 09-30-2023 Fibrin D-dimer LA Ql (PPP) < 200 ng/mL 0-243 [facility] Comment on above: The reference range [...] coagulation studies. Please contact the laboratory at [phone] for redraw instructions. Glucose [Mass/volume] in Ser um or PlasmaOrdered By: Nataly Toure on 09-30-2023 Glucose [Mass/Vol] 75 mg/dL Normal 70-100 [facility] Comment on above: ADA recommended refe rence rangeRandom Glucose Reference Range is dependent on time and content of last meal. Glucose of more than 200 mg/dL in a nonstressed, ambulatory subject supports the diagnosis of Diabetes Mellitus. Order Comment: Reaso n for Exam Adenopathy Reason for Exam Iron deficiency Reason for Exam Hypothyroidism, unspecified type Result Comment: [place] om Glucose Reference Range is dependent on time and content of last meal. Glucose of more than 200 mg/dL in a nonstressed, ambulatory subject supports the diagnosis of Diabetes Mellitus. ADA recommended reference range Performed By: #### C USTB #### [address] Hematocrit [Volume Fraction] of Blood by Automated countOrdered By: Nataly Toure on 09-30-2023 Hematocrit (Bld) [Volume fraction] 37.9 % Normal 34.0-46.4 [facility] Comment on above: Order Comment: Reaso n for Exam Adenopathy Performed By: #### C USTB #### [address] Hemoglobin [Mass/volume] in BloodOrdered By: Nataly Toure on 09-30-2023 Hemoglobin (Bld) [Mass/Vol] 12.6 g/dL Normal 11.8-15.4 [facility] Comment on above: Order Comment: Reaso n for Exam Adenopathy Performed By: #### C USTB #### [address] Iron [Mass/volume] in Serum or PlasmaOrdered By: Nataly Toure on 09-30-2023 Iron [Mass/Vol] 43 ug/dL Low 50-212 [facility] Comment on above: Order Comment: Reaso n for Exam Adenopathy Reason for Exam Iron deficiency Reason for Exam Hypothyroidism, unspecified type Performed By: #### G TT3 #### [place] [address] [place] Iron and TIBC Profileon 09-15 % Iron Saturation 10.6 % Low 20-50 [facility] Comment on above: Order Comment: Reaso n for Exam Adenopathy Reason for Exam Iron deficiency Reason for Exam Hypothyroidism, unspecified type Performed By: #### G TT3 #### [facility] [address] Total Iron Binding Capacity 406 ug/dL Normal 255-450 [facility] Comment on above: Order Comment: Reaso n for Exam Adenopathy Reason for Exam Iron deficiency Reason for Exam Hypothyroidism, unspecified type Performed By: #### G TT3 #### [facility] [address] [place], [place] [id number] [facility] Iron binding capacity [Mass/ volume] in Serum or PlasmaOrdered By: Nataly Toure on 09-30-2023 Iron binding capacity [Mass/Vol] 406 ug/dL 255-450 [facility] Iron saturation [Mass Fracti on] in Serum or PlasmaOrdered By: Nataly Toure on 09-30-2023 Iron saturation [Mass fraction] 10.6 % Low 20-50 [facility] Leukocytes [#/volume] correc kee for nucleated erythrocytes in Blood by Automated counOrdered By: Nataly Toure on 09-30-2023 WBC corrected for nucl RBC Auto (Bld) [#/Vol] 8.2 10*3/uL 3.8-11.6 [facility] Leukocytes [#/volume] in Blo od by Automated countOrdered By: Nataly Toure on 09-30-2023 WBC (Bld) [#/Vol] 8.2 10*3/uL Normal 3.8-11.6 [facility] Comment on above: Order Comment: Reaso n for Exam Adenopathy Performed By: #### C USTB #### [facility] [address] [place] [address] Lymphocytes [#/volume] in Bl ood by Automated countOrdered By: Nataly Toure on 09-30-2023 Lymphocytes (Bld) [#/Vol] 2.7 10*3/uL Normal 1.00-4.8 [facility] Comment on above: Order Comment: Reaso n for Exam Adenopathy Performed By: #### C USTB #### [address] Lymphocytes/100 leukocytes i n Blood by Automated countOrdered By: Nataly Toure on 09-30-2023 Lymphocytes/100 WBC (Bld) 32.4 % Normal . [facility] Comment on above: Order Comment: Reaso n for Exam Adenopathy Performed By: #### C USTB #### [place] [address] [place] MCH [Entitic mass] by Automa kee countOrdered By: Nataly Toure on 09-30-2023 MCH (RBC) [Entitic mass] 26.3 pg Normal 24.7-34.3 [facility] Comment on above: Order Comment: Reaso n for Exam Adenopathy Performed By: #### C USTB #### [address] MCHC Auto (RBC) [Mass/Vol]Or dered By: Nataly Toure on 09-30-2023 MCHC (RBC) [Mass/Vol] 33.2 g/dL 32.0-35.0 [facility] MCV [Entitic volume] by Auto mated countOrdered By: Nataly Toure on 09-30-2023 MCV (RBC) [Entitic vol] 79.1 fL Low 80-100 [facility] Comment on above: Order Comment: Reaso n for Exam Adenopathy Performed By: #### C USTB #### [place] [address] [place] Neutrophils [#/volume] in Bl ood by Automated countOrdered By: Nataly Toure on 09-30-2023 Neutrophils (Bld) [#/Vol] 4.8 10*3/uL Normal 1.8-7.7 [facility] Comment on above: Order Comment: Reaso n for Exam Adenopathy Performed By: #### C USTB #### [address] No Panel InformationOrdered By: Nataly Toure on 09-30-2023 Estimated GFR (CKD-EPI) > 60.0 mL/Min [facility] Creatinine Clearance (Chem N/A [facility] Nucleated erythrocytes [Pres ence] in Blood by Automated countOrdered By: Nataly Toure on 09-30-2023 Nucleated RBC Auto Ql (Bld) 0.1 /100{WBC} 0-0.5 [facility] Platelet mean volume [Entiti c volume] in Blood by Automated countOrdered By: Nataly Toure on 09-30-2023 Platelet mean volume (Bld) [Entitic vol] 9.2 fL Normal 6.3-10.7 [facility] Comment on above: Order Comment: Reaso n for Exam Adenopathy Performed By: #### C USTB #### [facility] [address] [place] [address] [place] Platelets [#/volume] in Bloo d by Automated countOrdered By: Nataly Toure on 09-30-2023 Platelets (Bld) [#/Vol] 246 10*3/uL Normal 150-450 [facility] Comment on above: Order Comment: Reaso n for Exam Adenopathy Performed By: #### C USTB #### [facility] [address] [place], [place] [id number] [place] Potassium [Moles/volume] in Serum or PlasmaOrdered By: Nataly Toure on 09-30-2023 Potassium [Moles/Vol] 3.9 mmol/L Normal 3.5-5.1 [facility] Comment on above: Order Comment: Reaso n for Exam Adenopathy Reason for Exam Iron deficiency Reason for Exam Hypothyroidism, unspecified type Performed By: #### C USTB #### [facility] [address] [place], [place] [id number] [place] Protein [Mass/volume] in Ser um or PlasmaOrdered By: Nataly Toure on 09-30-2023 Protein [Mass/Vol] 7.0 g/dL Normal 6.4-8.9 [facility] Comment on above: Order Comment: Reaso n for Exam Adenopathy Reason for Exam Iron deficiency Reason for Exam Hypothyroidism, unspecified type Performed By: #### C USTB #### [facility] [address] [place], [place] [id number] [place] Serum globulin measurement b y calculation (mass/volume)Ordered By: Nataly Toure on 09-30-2023 Globulin (S) [Mass/Vol] 2.8 g/dL [facility] Comment on above: Order Comment: Reaso n for Exam Adenopathy Reason for Exam Iron deficiency Reason for Exam Hypothyroidism, unspecified type Performed By: #### C USTB #### [facility] [address] [place] [address] Serum or plasma albumin/glob ulin mass ratioOrdered By: Nataly Toure on 09-30-2023 Albumin/Globulin [Mass ratio] 1.5 {ratio} [facility] Comment on above: Order Comment: Reaso n for Exam Adenopathy Reason for Exam Iron deficiency Reason for Exam Hypothyroidism, unspecified type Performed By: #### C USTB #### [address] Serum or plasma anion gap de terminationOrdered By: Nataly Toure on 09-30-2023 Anion gap [Moles/Vol] 11.0 mmol/L Normal 6.0-15.0 [facility] Comment on above: Order Comment: Reaso n for Exam Adenopathy Reason for Exam Iron deficiency Reason for Exam Hypothyroidism, unspecified type Performed By: #### C USTB #### [address] Sodium [Moles/volume] in Ser um or PlasmaOrdered By: Nataly Toure on 09-30-2023 Sodium [Moles/Vol] 140 mmol/L Normal 136-145 [facility] Comment on above: Order Comment: Reaso n for Exam Adenopathy Reason for Exam Iron deficiency Reason for Exam Hypothyroidism, unspecified type Performed By: #### C USTB #### [facility] [address] [place] [address] Thyroid Stim Hormone w/Rflxo n 09-30-2023 Thyroid Stim Hormone w/Rflx 4.99 u[iU]/mL Normal 0.45-5.33 [facility] Comment on above: Order Comment: Reaso n for Exam Adenopathy Reason for Exam Iron deficiency Reason for Exam Hypothyroidism, unspecified type Result Comment: PERF ORMED BY: [place] [address] PATHOLOGIST GANTRY RIGGER ALLA OROZCO M.D. Performed By: #### G TT3 #### [address] Thyrotropin [Units/volume] i n Serum or PlasmaOrdered By: Nataly Toure on 09-30-2023 TSH Qn 4.99 m[IU]/L 0.45-5.33 [facility] Transferrin [Mass/volume] in Serum or PlasmaOrdered By: Nataly Toure on 09-30-2023 Transferrin [Mass/Vol] 290 mg/dL Normal 203-362 [facility] Comment on above: Order Comment: Reaso n for Exam Adenopathy Reason for Exam Iron deficiency Reason for Exam Hypothyroidism, unspecified type Performed By: #### G TT3 #### [address] Urea nitrogen [Mass/volume] in Serum or PlasmaOrdered By: Nataly Toure on 09-30-2023 Urea nitrogen [Mass/Vol] 23 mg/dL Normal 7-25 [facility] Comment on above: Order Comment: Reaso n for Exam Adenopathy Reason for Exam Iron deficiency Reason for Exam Hypothyroidism, unspecified type Performed By: #### C USTB #### [address] lumbar spine wo conon CT lumbar spine wo con [facility] [address] CT Scan Report Signed Patient: Rosette Alba MR#: [id number] : 2000 Acct:[id number] Age/Sex: 23 / F ADM Date: 09/26/23 Loc: ER Room: Type: [facility] ER Attending Dr: Copies to: Devon Leon [...] Deborah Vazquez M.D.09/27/2023 8:13 AM Dictation Location: [place] [address] Transcribed By: [facility] 09/27/[id number] Dictated By: Deborah Vazquez MD 09/27/23 0804 Signed By: 09/27/23 08 Normal [facility] Bacteria [Presence] in Urine by AutomatedOrdered By: Devon Leon on 09-26-2023 Bacteria Auto Ql (U) Rare [HPF] None Seen [facility] Bilirubin Test strip Ql (U)O rdered By: Devon Leon on 09-26-2023 Bilirubin Ql (U) Negative Negative [facility] Color of Urine by AutoOrdere d By: Devon Leon on 09-26-2023 Color (U) Light-yellow Normal Yellow [facility] Comment on above: Order Comment: Name Collection Type:: Clean-Voided Midstream Performed By: #### A DDONUAPLUS, CUU #### [facility] [address] [place] [address] [place] Dipstick and Microscopicon 0 - Bacteria,Urine Rare Normal None Seen [facility] Comment on above: Order Comment: Name Collection Type:: Clean-Voided Midstream Performed By: #### A DDONUAPLUS, CUU #### [place] [address] [place] Bilirubin,Urine Negative Normal Negative [facility] Comment on above: Order Comment: Name Collection Type:: Clean-Voided Midstream Performed By: #### A DDONUAPLUS, CUU #### [place] [address] [place] Glucose Ql (U) Normal Normal Normal [facility] Comment on above: Order Comment: Name Collection Type:: Clean-Voided Midstream Performed By: #### A DDONUAPLUS, CUU #### [place] [address] [place] Hyaline Casts,Urine None Normal 0-8 [facility] Comment on above: Order Comment: Name Collection Type:: Clean-Voided Midstream Performed By: #### A DDONUAPLUS, CUU #### [place] [address] [place] Mucus,Urine 2+ Critically abnormal [facility] Comment on above: Order Comment: Name Collection Type:: Clean-Voided Midstream Performed By: #### A DDONUAPLUS, CUU #### [place] [address] [place] Nitrite,Urine Negative Normal Negative [facility] Comment on above: Order Comment: Name Collection Type:: Clean-Voided Midstream Performed By: #### A DDONUAPLUS, CUU #### [place] [address] [place] Occult Blood,Urine 2+ High Negative [facility] Comment on above: Order Comment: Name Collection Type:: Clean-Voided Midstream Result Comment: PERF ORMED BY: [place] [address] PATHOLOGIST GANTRY RIGGER ALLA OROZCO M.D. Performed By: #### A DDONUAPLUS, CUU #### [address] Protein,Urine Trace High Negative [facility] Comment on above: Order Comment: Name Collection Type:: Clean-Voided Midstream Performed By: #### A DDONUAPLUS, CUU #### [place] [address] [place] RBC,Urine 3-4 Normal 0-4 [facility] Comment on above: Order Comment: Name Collection Type:: Clean-Voided Midstream Performed By: #### A DDONUAPLUS, CUU #### [address] Specificy [place],Urine 1.030 Normal 1.001-1.03 0 [facility] Comment on above: Order Comment: Name Collection Type:: Clean-Voided Midstream Performed By: #### A DDONUAPLUS, CUU #### [place] [address] [place] Sperm,Urine 5-9 High 0-2 [facility] Comment on above: Order Comment: Name Collection Type:: Clean-Voided Midstream Result Comment: PERF ORMED BY: [place] [address] PATHOLOGIST GANTRY RIGGER ALLA OROZCO M.D. Performed By: #### A DDONUAPLUS, CUU #### [place] [address] [place] Squamous Epithelial Cell,Urine 5-9 High 0-2 [facility] Comment on above: Order Comment: Name Collection Type:: Clean-Voided Midstream Performed By: #### A DDONUAPLUS, CUU #### [address] Urobilinogen,Urine Normal Normal Normal [facility] Comment on above: Order Comment: Name Collection Type:: Clean-Voided Midstream Performed By: #### A DDONUAPLUS, CUU #### [facility] [address] WBC,Urine 5-9 High 0-4 [facility] Comment on above: Order Comment: Name Collection Type:: Clean-Voided Midstream Performed By: #### A DDONUAPLUS, CUU #### [facility] [address] [place] [address] [place] Epithelial cells.squamous [# /area] in Urine sediment by Automated countOrdered By: Devon Leon on 09-26-2023 Epithelial cells.squamous Auto (Urine sed) [#/Area] 5-9 [HPF] High 0-2 [facility] Erythrocytes [#/area] in Uri ne sediment by Automated countOrdered By: Devon Leon on 09-26-2023 RBC Auto (Urine sed) [#/Area] 3-4 [HPF] 0-4 [facility] Glucose [Mass/volume] in Uri ne by Test stripOrdered By: Devon Leon on 09-26-2023 Glucose Test strip (U) [Mass/Vol] Normal mg/dL Normal [facility] Hemoglobin Test strip Ql (U) Ordered By: Devon Leon on 09-26-2023 Hemoglobin Ql (U) 2+ High Negative [facility] Hyaline casts [#/area] in Ur ine sediment by Automated countOrdered By: Devon Leon on 09-26-2023 Hyaline casts Auto (Urine sed) [#/Area] None [LPF] 0-8 [facility] Ketones [Presence] in Urine by Test stripOrdered By: Devon Leon on 09-26-2023 Ketones Ql (U) Negative Normal Negative [facility] Comment on above: Order Comment: Name Collection Type:: Clean-Voided Midstream Performed By: #### A DDONUAPLUS, CUU #### [facility] [address] [place] [address] [place] Leukocyte esterase [Presence ] in Urine by Test stripOrdered By: Devon Leon on 09-26-2023 Leukocyte esterase Test strip Ql (U) 2+ High Negative [facility] Comment on above: Order Comment: Name Collection Type:: Clean-Voided Midstream Performed By: #### A JOSE CUU #### [facility] [address] [place] [address] Leukocytes [#/area] in Urine sediment by Automated countOrdered By: Devon Leon on 09-26-2023 WBC Auto (Urine sed) [#/Area] 5-9 [HPF] High 0-4 [facility] Mucus [Presence] in Urine by AutomatedOrdered By: Devon Leon on 09-26-2023 Mucus Auto Ql (U) 2+ [LPF] Abnormal [facility] Nitrite Test strip Ql (U)Ord ered By: Devon Leon on 09-26-2023 Nitrite Ql (U) Negative Negative [facility] Protein Test strip (U) [Mass /Vol]Ordered By: Devon Leon on 09-26-2023 Protein (U) [Mass/Vol] Trace mg/dL High Negative [facility] Specific gravity Test strip (U) [Rel density]Ordered By: Devon Leon on 09-26-2023 Specific gravity (U) [Rel density] 1.030 1.001-1.03 0 [facility] Spermat[place] [#/area] in Urin e sediment by Automated countOrdered By: Devon Leon on 09-26-2023 [place] Auto (Urine sed) [#/Area] 5-9 [HPF] High 0-2 [facility] Urine Cultureon 09-26-2023 Bacteria identified Cx Nom (U) ORGANISM: Strep agalactiae - (group b) (O:STRAGA) [place] Count 75,000 PERFORMED BY: [place] [address] PATHOLOGIST GANTRY RIGGER ALLA OROZCO M.D. Normal [facility] Comment on above: Performed By: #### A JOSE CUU #### [facility] [address] [place] [address] Urine appearanceOrdered By: Devon Leon on 09-26-2023 Appearance (U) Clear Normal Clear [facility] Comment on above: Order Comment: Name Collection Type:: Clean-Voided Midstream Performed By: #### A DDONUAPLUS, CUU #### [facility] [address] [place] [address] [place] Urine culture routineOrdered By: Devon Leon on 09-26-2023 Bacteria identified Cx Nom (U) Strep agalactiae - (group b) Abnormal [facility] Urobilinogen Test strip (U) [Mass/Vol]Ordered By: Devon Leon on 09-26-2023 Urobilinogen (U) [Mass/Vol] Normal mg/dL Normal [facility] pH of Urine by Test stripOrd ered By: Devon Leon on 09-26-2023 pH (U) 6.0 [pH] Normal 5.0-9.0 [facility] Comment on above: Order Comment: Name Collection Type:: Clean-Voided Midstream Performed By: #### A JOSE, CUU #### [facility] [address] [place] [address] [place] Alanine aminotransferase [En zymatic activity/volume] in Serum or PlasmaOrdered By: Nataly Toure on 08-03-2023 ALT [Catalytic activity/Vol] 14 U/L Normal 7-52 [facility] Comment on above: Order Comment: Reaso n for Exam Hypothyroidism, unspecified type;High blood triglycerides Reason for Exam Iron deficiency Reason for Exam High blood triglycerides Reason for Exam Hypothyroidism, unspecified type Performed By: #### G TT3 #### [facility] [address] [place] [address] [place] Albumin [Mass/volume] in Ser um or Plasma by Bromocresol green (BCG) dye binding methoOrdered By: Nataly Toure on 08-03-2023 Albumin BCG dye [Mass/Vol] 4.4 g/dL 3.5-5.7 [facility] Alkaline phosphatase [Enzyma tic activity/volume] in Serum or PlasmaOrdered By: Nataly Toure on 08-03-2023 ALP [Catalytic activity/Vol] 85 U/L Normal 34-104 [facility] Comment on above: Order Comment: Reaso n for Exam Hypothyroidism, unspecified type;High blood triglycerides Reason for Exam Iron deficiency Reason for Exam High blood triglycerides Reason for Exam Hypothyroidism, unspecified type Performed By: #### G TT3 #### [facility] [address] [place] [address] Aspartate aminotransferase [ Enzymatic activity/volume] in Serum or PlasmaOrdered By: Nataly Toure on 08-03-2023 AST [Catalytic activity/Vol] 13 U/L Normal 13-39 [facility] Comment on above: Order Comment: Reaso n for Exam Hypothyroidism, unspecified type;High blood triglycerides Reason for Exam Iron deficiency Reason for Exam High blood triglycerides Reason for Exam Hypothyroidism, unspecified type Performed By: #### G TT3 #### [address] Automated basophil %Ordered By: Nataly Jerniganc on 08-03-2023 Basophils/100 WBC (Bld) 0.4 % Normal . [facility] Comment on above: Order Comment: Reaso n for Exam Iron deficiency Performed By: #### G TT3 #### [facility] [address] [place] [address] Automated basophil countOrde red By: Nataly Jerniganc on 08-03-2023 Basophils (Bld) [#/Vol] 0.0 10*3/uL Normal 0.0-0.2 [facility] Comment on above: Order Comment: Reaso n for Exam Iron deficiency Result Comment: PERF ORMED BY: [place] [address] PATHOLOGIST GANTRY RIGGER ALLA OROZCO M.D. Performed By: #### G TT3 #### [facility] [address] [place] [address] Automated blood monocyte cou ntOrdered By: Nataly Jerniganc on 08-03-2023 Monocytes (Bld) [#/Vol] 0.4 10*3/uL Normal 0.0-0.8 [facility] Comment on above: Order Comment: Reaso n for Exam Iron deficiency Performed By: #### G TT3 #### [address] Automated eosinophil %Ordere d By: Nataly Spaaprilc on 08-03-2023 Eosinophils/100 WBC (Bld) 0.5 % Normal . [facility] Comment on above: Order Comment: Reaso n for Exam Iron deficiency Performed By: #### G TT3 #### [facility] [address] Automated eosinophil countOr dered By: Nataly Toure on 08-03-2023 Eosinophils (Bld) [#/Vol] 0.0 10*3/uL Normal 0.0-0.45 [facility] Comment on above: Order Comment: Reaso n for Exam Iron deficiency Performed By: #### G TT3 #### [address] Automated monocyte %Ordered By: Nataly Toure on 08-03-2023 Monocytes/100 WBC (Bld) 5.4 % Normal . [facility] Comment on above: Order Comment: Reaso n for Exam Iron deficiency Performed By: #### G TT3 #### [facility] [address] [place] [address] Automated neutrophil %Ordere d By: Nataly Toure on 08-03-2023 Neutrophils/100 WBC (Bld) 70.9 % Normal . [facility] Comment on above: Order Comment: Reaso n for Exam Iron deficiency Performed By: #### G TT3 #### [facility] [address] [place] [address] Bilirubin.total [Mass/volume ] in Serum or PlasmaOrdered By: Nataly Toure on 08-03-2023 Bilirubin [Mass/Vol] 0.5 mg/dL Normal 0.3-1.0 [facility] Comment on above: Order Comment: Reaso n for Exam Hypothyroidism, unspecified type;High blood triglycerides Reason for Exam Iron deficiency Reason for Exam High blood triglycerides Reason for Exam Hypothyroidism, unspecified type Performed By: #### G TT3 #### [facility] [address] [place] [address] Calcium [Mass/volume] in Ser um or PlasmaOrdered By: Nataly Toure on 08-03-2023 Calcium [Mass/Vol] 9.5 mg/dL Normal 8.6-10.3 [facility] Comment on above: Order Comment: Reaso n for Exam Hypothyroidism, unspecified type;High blood triglycerides Reason for Exam Iron deficiency Reason for Exam High blood triglycerides Reason for Exam Hypothyroidism, unspecified type Performed By: #### G TT3 #### [facility] [address] [place] [id number] [place] Carbon dioxide, total [Moles /volume] in Serum or PlasmaOrdered By: Nataly Toure on 08-03-2023 CO2 [Moles/Vol] 27.2 mmol/L Normal 21.0-31.0 [facility] Comment on above: Order Comment: Reaso n for Exam Hypothyroidism, unspecified type;High blood triglycerides Reason for Exam Iron deficiency Reason for Exam High blood triglycerides Reason for Exam Hypothyroidism, unspecified type Performed By: #### G TT3 #### [facility] [address] [place] [address] [place] Chloride [Moles/volume] in S rosa or PlasmaOrdered By: Nataly Toure on 08-03-2023 Chloride [Moles/Vol] 105 mmol/L Normal 98-107 [facility] Comment on above: Order Comment: Reaso n for Exam Hypothyroidism, unspecified type;High blood triglycerides Reason for Exam Iron deficiency Reason for Exam High blood triglycerides Reason for Exam Hypothyroidism, unspecified type Performed By: #### G TT3 #### [facility] [address] [place] [id number] [place] Cholesterol [Mass/volume] in Serum or PlasmaOrdered By: Nataly Toure on 08-03-2023 Cholesterol [Mass/Vol] 159 mg/dL Normal 140-200 [facility] Comment on above: Chol less than 200 [...] risk Performed By: #### G TT3 #### [facility] [address] [place] [id number] [place] Cholesterol in LDL Calc [Mas s/Vol]Ordered By: Nataly Toure on 08-03-2023 Cholesterol in LDL [Mass/Vol] 82 mg/dL 0-100 [facility] Comment on above: LDL ATP III CLASSIFI CATIONLDL less than 100 mg/dL OptimalLDL 100-129 mg/dL Near or above optimalLDL 130-159 mg/dL Borderline highLDL 160-189 mg/dL HighLDL greater than 189 mg/dL Very high Cholesterol in VLDL Calc [Ma ss/Vol]Ordered By: Nataly Toure on 08-03-2023 Cholesterol in VLDL [Mass/Vol] 28 mg/dL [facility] Complete Blood Count Auto Di ffon 08-03-2023 Mean Corpuscular HGB Conc 33.1 g/dL Normal 32.0-35.0 [facility] Comment on above: Order Comment: Reaso n for Exam Iron deficiency Performed By: #### G TT3 #### [facility] [address] [place] [address] NRBC% 0.2 /100{WBC} Normal 0-0.5 [facility] Comment on above: Order Comment: Reaso n for Exam Iron deficiency Performed By: #### G TT3 #### [facility] [address] [place] [address] Comprehensive Metabolic Pane marco 08-03-2023 Albumin [Mass/Vol] 4.4 g/dL Normal 3.5-5.7 [facility] Comment on above: Order Comment: Reaso n for Exam Hypothyroidism, unspecified type;High blood triglycerides Reason for Exam Iron deficiency Reason for Exam High blood triglycerides Reason for Exam Hypothyroidism, unspecified type Performed By: #### G TT3 #### [facility] [address] [place] [address] [place] GFR/1.73 sq M.predicted MDRD (S/P/Bld) [Vol rate/Area] mL/min/{1.73_m2} Normal [facility] Comment on above: Order Comment: Reaso n for Exam Hypothyroidism, unspecified type;High blood triglycerides Reason for Exam Iron deficiency Reason for Exam High blood triglycerides Reason for Exam Hypothyroidism, unspecified type Performed By: #### G TT3 #### [facility] [address] [place] [address] [place] Creatinine [Mass/volume] in Serum or PlasmaOrdered By: Nataly Toure on 08-03-2023 Creatinine [Mass/Vol] 0.78 mg/dL Normal 0.60-1.20 [facility] Comment on above: Order Comment: Reaso n for Exam Hypothyroidism, unspecified type;High blood triglycerides Reason for Exam Iron deficiency Reason for Exam High blood triglycerides Reason for Exam Hypothyroidism, unspecified type Performed By: #### G TT3 #### [facility] [address] [place] [address] [place] Erythrocyte distribution wid th [Ratio] by Automated countOrdered By: Nataly Toure on 08-03-2023 Erythrocyte distribution width (RBC) [Ratio] 14.3 % Normal 11.9-15.3 [facility] Comment on above: Order Comment: Reaso n for Exam Iron deficiency Performed By: #### G TT3 #### [facility] [address] [place] [address] [place] Erythrocytes [#/volume] in B lood by Automated countOrdered By: Nataly Toure on 08-03-2023 RBC (Bld) [#/Vol] 4.72 10*6/uL Normal 3.60-5.00 [facility] Comment on above: Order Comment: Reaso n for Exam Iron deficiency Performed By: #### G TT3 #### [facility] [address] [place] [address] [place] Glucose [Mass/volume] in Ser um or PlasmaOrdered By: Nataly Toure on 08-03-2023 Glucose [Mass/Vol] 82 mg/dL Normal 70-100 [facility] Comment on above: ADA recommended refe rence [...] for Exam Hypothyroidism, unspecified type Result Comment: [place] om Glucose Reference Range is dependent on time and content of last meal. Glucose of more than 200 mg/dL in a nonstressed, ambulatory subject supports the diagnosis of Diabetes Mellitus. ADA recommended reference range Performed By: #### G TT3 #### [address] Hematocrit [Volume Fraction] of Blood by Automated countOrdered By: Nataly Toure on 08-03-2023 Hematocrit (Bld) [Volume fraction] 36.8 % Normal 34.0-46.4 [facility] Comment on above: Order Comment: Reaso n for Exam Iron deficiency Performed By: #### G TT3 #### [address] Hemoglobin [Mass/volume] in BloodOrdered By: Nataly Toure on 08-03-2023 Hemoglobin (Bld) [Mass/Vol] 12.2 g/dL Normal 11.8-15.4 [facility] Comment on above: Order Comment: Reaso n for Exam Iron deficiency Performed By: #### G TT3 #### [address] Insulinon 08-03-2023 Insulin 14.1 u[iU]/mL Normal 2.6-24.9 [facility] Comment on above: Order Comment: Name Collection Type:: Clean-Voided Midstream Result Comment: Perf ormed at: - [facility] [address] [id number] [place] Folder: Sam Lopez PhD, Phone: [phone] PERFORMED BY: [place] [address] PATHOLOGIST GANTRY RIGGER ALLA OROZCO M.D. Performed By: #### A DDONUALETICIA, [place] #### [address] Iron [Mass/volume] in Serum or PlasmaOrdered By: Nataly Toure on 08-03-2023 Iron [Mass/Vol] 43 ug/dL Low 50-212 [facility] Comment on above: Order Comment: Reaso n for Exam Hypothyroidism, unspecified type;High blood triglycerides Reason for Exam Iron deficiency Reason for Exam High blood triglycerides Reason for Exam Hypothyroidism, unspecified type Performed By: #### G TT3 #### [place] [address] [place] [id number] [facility] Iron and TIBC Profileon 07-16 % Iron Saturation 11.3 % Low 20-50 [facility] Comment on above: Order Comment: Reaso n for Exam Hypothyroidism, unspecified type;High blood triglycerides Reason for Exam Iron deficiency Reason for Exam High blood triglycerides Reason for Exam Hypothyroidism, unspecified type Performed By: #### G TT3 #### [facility] [address] Total Iron Binding Capacity 382 ug/dL Normal 255-450 [facility] Comment on above: Order Comment: Reaso n for Exam Hypothyroidism, unspecified type;High blood triglycerides Reason for Exam Iron deficiency Reason for Exam High blood triglycerides Reason for Exam Hypothyroidism, unspecified type Performed By: #### G TT3 #### [facility] [address] [place] [address] Iron binding capacity [Mass/ volume] in Serum or PlasmaOrdered By: Nataly Spasic on 08-03-2023 Iron binding capacity [Mass/Vol] 382 ug/dL 255-450 [facility] Iron saturation [Mass Fracti on] in Serum or PlasmaOrdered By: Nataly Junesic on 08-03-2023 Iron saturation [Mass fraction] 11.3 % Low 20-50 [facility] Leukocytes [#/volume] correc kee for nucleated erythrocytes in Blood by Automated counOrdered By: Nataly Jerniganc on 08-03-2023 WBC corrected for nucl RBC Auto (Bld) [#/Vol] 7.2 10*3/uL 3.8-11.6 [facility] Leukocytes [#/volume] in Blo od by Automated countOrdered By: Nataly Jerniganc on 08-03-2023 WBC (Bld) [#/Vol] 7.2 10*3/uL Normal 3.8-11.6 [facility] Comment on above: Order Comment: Reaso n for Exam Iron deficiency Performed By: #### G TT3 #### [facility] [address] [place], [place] [id number] [facility] Lipid Panelon 08-03-2023 LDL Cholesterol,Calculated 82 mg/dL Normal 0-100 [facility] Comment on above: [...] high Performed By: #### G TT3 #### [address] Triglyceride w/Reflex 140 mg/dL Normal 0-149 [facility] Comment on above: [...] method. Performed By: #### G TT3 #### [address] VLDL CHOLESTEROL 28 mg/dL Normal [facility] Comment on above: Order Comment: Reaso n for Exam Hypothyroidism, unspecified type;High blood triglycerides Reason for Exam Iron deficiency Reason for Exam High blood triglycerides Reason for Exam Hypothyroidism, unspecified type Performed By: #### G TT3 #### [place] [address] [place] Lymphocytes [#/volume] in Bl ood by Automated countOrdered By: Nataly Toure on 08-03-2023 Lymphocytes (Bld) [#/Vol] 1.6 10*3/uL Normal 1.00-4.8 [facility] Comment on above: Order Comment: Reaso n for Exam Iron deficiency Performed By: #### G TT3 #### [place] [address] [place] Lymphocytes/100 leukocytes i n Blood by Automated countOrdered By: Nataly Toure on 08-03-2023 Lymphocytes/100 WBC (Bld) 22.8 % Normal . [facility] Comment on above: Order Comment: Reaso n for Exam Iron deficiency Performed By: #### G TT3 #### [facility] [address] [place] [address] MCH [Entitic mass] by Automa kee countOrdered By: Nataly Toure on 08-03-2023 MCH (RBC) [Entitic mass] 25.8 pg Normal 24.7-34.3 [facility] Comment on above: Order Comment: Reaso n for Exam Iron deficiency Performed By: #### G TT3 #### [facility] [address] [place] [address] MCHC Auto (RBC) [Mass/Vol]Or dered By: Nataly Toure on 08-03-2023 MCHC (RBC) [Mass/Vol] 33.1 g/dL 32.0-35.0 [facility] MCV [Entitic volume] by Auto mated countOrdered By: Nataly Toure on 08-03-2023 MCV (RBC) [Entitic vol] 78.0 fL Low 80-100 [facility] Comment on above: Order Comment: Reaso n for Exam Iron deficiency Performed By: #### G TT3 #### [facility] [address] [place] [address] Neutrophils [#/volume] in Bl ood by Automated countOrdered By: Nataly Toure on 08-03-2023 Neutrophils (Bld) [#/Vol] 5.1 10*3/uL Normal 1.8-7.7 [facility] Comment on above: Order Comment: Reaso n for Exam Iron deficiency Performed By: #### G TT3 #### [facility] [address] [place] [address] No Panel InformationOrdered By: Nataly Toure on 08-03-2023 Estimated GFR (CKD-EPI) > 60.0 mL/Min [facility] Creatinine Clearance (Chem N/A [facility] Nucleated erythrocytes [Pres ence] in Blood by Automated countOrdered By: Nataly Toure on 08-03-2023 Nucleated RBC Auto Ql (Bld) 0.2 /100{WBC} 0-0.5 [facility] Platelet mean volume [Entiti c volume] in Blood by Automated countOrdered By: Nataly Toure on 08-03-2023 Platelet mean volume (Bld) [Entitic vol] 9.2 fL Normal 6.3-10.7 [facility] Comment on above: Order Comment: Reaso n for Exam Iron deficiency Performed By: #### G TT3 #### [facility] [address] [place] [address] [place] Platelets [#/volume] in Bloo d by Automated countOrdered By: Nataly Toure on 08-03-2023 Platelets (Bld) [#/Vol] 260 10*3/uL Normal 150-450 [facility] Comment on above: Order Comment: Reaso n for Exam Iron deficiency Performed By: #### G TT3 #### [facility] [address] Potassium [Moles/volume] in Serum or PlasmaOrdered By: Nataly Toure on 08-03-2023 Potassium [Moles/Vol] 3.6 mmol/L Normal 3.5-5.1 [facility] Comment on above: Order Comment: Reaso n for Exam Hypothyroidism, unspecified type;High blood triglycerides Reason for Exam Iron deficiency Reason for Exam High blood triglycerides Reason for Exam Hypothyroidism, unspecified type Performed By: #### G TT3 #### [facility] [address] [place], [place] [id number] [place] Protein [Mass/volume] in Ser um or PlasmaOrdered By: Nataly Toure on 08-03-2023 Protein [Mass/Vol] 7.2 g/dL Normal 6.4-8.9 [facility] Comment on above: Order Comment: Reaso n for Exam Hypothyroidism, unspecified type;High blood triglycerides Reason for Exam Iron deficiency Reason for Exam High blood triglycerides Reason for Exam Hypothyroidism, unspecified type Performed By: #### G TT3 #### [facility] [address] [place] [id number] [facility] Serum globulin measurement b y calculation (mass/volume)Ordered By: Nataly Toure on 08-03-2023 Globulin (S) [Mass/Vol] 2.8 g/dL Normal [facility] Comment on above: Order Comment: Reaso n for Exam Hypothyroidism, unspecified type;High blood triglycerides Reason for Exam Iron deficiency Reason for Exam High blood triglycerides Reason for Exam Hypothyroidism, unspecified type Performed By: #### G TT3 #### [facility] [address] Serum or plasma albumin/glob ulin mass ratioOrdered By: Nataly Toure on 08-03-2023 Albumin/Globulin [Mass ratio] 1.6 {ratio} Normal [facility] Comment on above: Order Comment: Reaso n for Exam Hypothyroidism, unspecified type;High blood triglycerides Reason for Exam Iron deficiency Reason for Exam High blood triglycerides Reason for Exam Hypothyroidism, unspecified type Performed By: #### G TT3 #### [facility] [address] Serum or plasma anion gap de terminationOrdered By: Nataly Toure on 08-03-2023 Anion gap [Moles/Vol] 11.4 mmol/L Normal 6.0-15.0 [facility] Comment on above: Order Comment: Reaso n for Exam Hypothyroidism, unspecified type;High blood triglycerides Reason for Exam Iron deficiency Reason for Exam High blood triglycerides Reason for Exam Hypothyroidism, unspecified type Performed By: #### G TT3 #### [facility] [address] [place] [address] Serum or plasma high density lipoprotein (HDL) cholesterol measurementOrdered By: Nataly Toure on 08-03-2023 Cholesterol in HDL [Mass/Vol] 49 mg/dL Normal 23-92 [facility] Comment on above: HDL CHOL ATP-III [...] HIGH Performed By: #### G TT3 #### [facility] [address] Serum or plasma insulin nikita urement (units/volume)Ordered By: Nataly Toure on 08-03-2023 Insulin Qn 14.1 u[iU]/mL 2.6-24.9 [facility] Comment on above: Performed at: [address] [id number] Director: Sam Lopez PhD, Phone: [phone] Serum or plasma total choles terol/high density lipoprotein (HDL) cholesterol mass ratOrdered By: Nataly Toure on 08-03-2023 Cholesterol.total/Chol esterol in HDL [Mass ratio] 3.2 {ratio} Normal <5.0 [facility] Comment on above: Order Comment: Reaso n for Exam Hypothyroidism, unspecified type;High blood triglycerides Reason for Exam Iron deficiency Reason for Exam High blood triglycerides Reason for Exam Hypothyroidism, unspecified type Performed By: #### G TT3 #### [facility] [address] [place] [address] [place] Sodium [Moles/volume] in Ser um or PlasmaOrdered By: Nataly Toure on 08-03-2023 Sodium [Moles/Vol] 140 mmol/L Normal 136-145 [facility] Comment on above: Order Comment: Reaso n for Exam Hypothyroidism, unspecified type;High blood triglycerides Reason for Exam Iron deficiency Reason for Exam High blood triglycerides Reason for Exam Hypothyroidism, unspecified type Performed By: #### G TT3 #### [facility] [address] [place] [address] Thyroid Stim Hormone w/Rflxo n 08-03-2023 Thyroid Stim Hormone w/Rflx 3.20 u[iU]/mL Normal 0.45-5.33 [facility] Comment on above: Order Comment: Reaso n for Exam Hypothyroidism, unspecified type;High blood triglycerides Reason for Exam Iron deficiency Reason for Exam High blood triglycerides Reason for Exam Hypothyroidism, unspecified type Result Comment: PERF ORMED BY: [place] [address] PATHOLOGIST GANTRY RIGGER ALLA OROZCO M.D. Performed By: #### G TT3 #### [facility] [address] [place] [address] Thyrotropin [Units/volume] i n Serum or PlasmaOrdered By: Nataly Toure on 08-03-2023 TSH Qn 3.20 m[IU]/L 0.45-5.33 [facility] Transferrin [Mass/volume] in Serum or PlasmaOrdered By: Nataly Toure on 08-03-2023 Transferrin [Mass/Vol] 273 mg/dL Normal 203-362 [facility] Comment on above: Order Comment: Reaso n for Exam Hypothyroidism, unspecified type;High blood triglycerides Reason for Exam Iron deficiency Reason for Exam High blood triglycerides Reason for Exam Hypothyroidism, unspecified type Performed By: #### G TT3 #### [facility] [address] Triglyceride [Mass/volume] i n Serum or PlasmaOrdered By: Nataly Toure on 08-03-2023 Triglyceride [Mass/Vol] 140 mg/dL 0-149 [facility] Comment on above: TRIG ATP III CLASSIF ICATIONTRIG less than 150 mg/dL NormalTRIG 150-199 mg/dL Borderline highTRIG 200-500 mg/dL High TRIG greater than 500 mg/dL Very highStandard traceable to the Center for Disease Conrtrol and Prevention (CDC) test method. Urea nitrogen [Mass/volume] in Serum or PlasmaOrdered By: Nataly Toure on 08-03-2023 Urea nitrogen [Mass/Vol] 10 mg/dL Normal 7-25 [facility] Comment on above: Order Comment: Reaso n for Exam Hypothyroidism, unspecified type;High blood triglycerides Reason for Exam Iron deficiency Reason for Exam High blood triglycerides Reason for Exam Hypothyroidism, unspecified type Performed By: #### G TT3 #### [facility] [address] Complete Blood Count Auto Di ffon 04-15-2023 Basophils (Bld) [#/Vol] 0.0 10*3/uL Normal 0.0-0.2 [facility] Comment on above: Order Comment: Reaso n for Exam Iron deficiency Result Comment: PERF ORMED BY: [facility] [address] [facility] [place] [address] PATHOLOGIST GANTRY RIGGER ALLA OROZCO M.D. Performed By: #### C BC #### [address] #### RPR W RFX #### [facility] , Basophils/100 WBC (Bld) 0.5 % Normal . [facility] Comment on above: Order Comment: Reaso n for Exam Iron deficiency Performed By: #### C BC #### [facility] [address] [place] [address] #### RPR W RFX #### [facility] , Eosinophils (Bld) [#/Vol] 0.2 10*3/uL Normal 0.0-0.45 [facility] Comment on above: Order Comment: Reaso n for Exam Iron deficiency Performed By: #### C BC #### [address] #### RPR W RFX #### [facility] , Eosinophils/100 WBC (Bld) 3.8 % Normal . [facility] Comment on above: Order Comment: Reaso n for Exam Iron deficiency Performed By: #### C BC #### [place] [address] [place] #### RPR W RFX #### [facility] , Erythrocyte distribution width (RBC) [Ratio] 16.9 % High 11.9-15.3 [facility] Comment on above: Order Comment: Reaso n for Exam Iron deficiency Performed By: #### C BC #### [place] [address] [place] #### RPR W RFX #### [facility] , Hematocrit (Bld) [Volume fraction] 36.2 % Normal 34.0-46.4 [facility] Comment on above: Order Comment: Reaso n for Exam Iron deficiency Performed By: #### C BC #### [place] [address] [place] #### RPR W RFX #### [facility] , Hemoglobin (Bld) [Mass/Vol] 12.0 g/dL Normal 11.8-15.4 [facility] Comment on above: Order Comment: Reaso n for Exam Iron deficiency Performed By: #### C BC #### [address] #### RPR W RFX #### [facility] , Lymphocytes (Bld) [#/Vol] 1.6 10*3/uL Normal 1.00-4.8 [facility] Comment on above: Order Comment: Reaso n for Exam Iron deficiency Performed By: #### C BC #### [address] #### RPR W RFX #### [facility] , Lymphocytes/100 WBC (Bld) 28.1 % Normal . [facility] Comment on above: Order Comment: Reaso n for Exam Iron deficiency Performed By: #### C BC #### [address] #### RPR W RFX #### [facility] , MCH (RBC) [Entitic mass] 25.7 pg Normal 24.7-34.3 [facility] Comment on above: Order Comment: Reaso n for Exam Iron deficiency Performed By: #### C BC #### [place] [address] [place] #### RPR W RFX #### [facility] , MCV (RBC) [Entitic vol] 77.7 fL Low 80-100 [facility] Comment on above: Order Comment: Reaso n for Exam Iron deficiency Performed By: #### C BC #### [place] [address] [place] #### RPR W RFX #### [facility] , Mean Corpuscular HGB Conc 33.1 g/dL Normal 32.0-35.0 [facility] Comment on above: Order Comment: Reaso n for Exam Iron deficiency Performed By: #### C BC #### [facility] [address] [place] [address] [place] #### RPR W RFX #### [facility] , Monocytes (Bld) [#/Vol] 0.5 10*3/uL Normal 0.0-0.8 [facility] Comment on above: Order Comment: Reaso n for Exam Iron deficiency Performed By: #### C BC #### [place] [address] [place] #### RPR W RFX #### [facility] , Monocytes/100 WBC (Bld) 9.0 % Normal . [facility] Comment on above: Order Comment: Reaso n for Exam Iron deficiency Performed By: #### C BC #### [place] [address] [place] #### RPR W RFX #### [facility] , Neutrophils (Bld) [#/Vol] 3.3 10*3/uL Normal 1.8-7.7 [facility] Comment on above: Order Comment: Reaso n for Exam Iron deficiency Performed By: #### C BC #### [address] #### RPR W RFX #### [facility] , Neutrophils/100 WBC (Bld) 58.6 % Normal . [facility] Comment on above: Order Comment: Reaso n for Exam Iron deficiency Performed By: #### C BC #### [facility] [address] [place] [address] [place] #### RPR W RFX #### [facility] , NRBC% 0.1 /100{WBC} Normal 0-0.5 [facility] Comment on above: Order Comment: Reaso n for Exam Iron deficiency Performed By: #### C BC #### [place] [address] [place] #### RPR W RFX #### [facility] , Platelet mean volume (Bld) [Entitic vol] 9.1 fL Normal 6.3-10.7 [facility] Comment on above: Order Comment: Reaso n for Exam Iron deficiency Performed By: #### C BC #### [facility] [address] [place] [address] #### RPR W RFX #### [facility] , Platelets (Bld) [#/Vol] 220 10*3/uL Normal 150-450 [facility] Comment on above: Order Comment: Reaso n for Exam Iron deficiency Performed By: #### C BC #### [address] #### RPR W RFX #### [facility] , RBC (Bld) [#/Vol] 4.66 10*6/uL Normal 3.60-5.00 [facility] Comment on above: Order Comment: Reaso n for Exam Iron deficiency Performed By: #### C BC #### [facility] [address] [place] [address] #### RPR W RFX #### [facility] , WBC (Bld) [#/Vol] 5.6 10*3/uL Normal 3.8-11.6 [facility] Comment on above: Order Comment: Reaso n for Exam Iron deficiency Performed By: #### C BC #### [place] [address] [place] #### RPR W RFX #### [facility] , Comprehensive Metabolic Pane marco 04-15-2023 Albumin [Mass/Vol] 4.1 g/dL Normal 3.5-5.7 [facility] Comment on above: Order Comment: Reaso n for Exam Iron deficiency Reason for Exam High blood triglycerides Performed By: #### C BC #### [facility] [address] [place] [address] [place] #### RPR W RFX #### [facility] , Albumin/Globulin [Mass ratio] 1.4 {ratio} Normal [facility] Comment on above: Order Comment: Reaso n for Exam Iron deficiency Reason for Exam High blood triglycerides Performed By: #### C BC #### [address] #### RPR W RFX #### [facility] , ALP [Catalytic activity/Vol] 89 U/L Normal 34-104 [facility] Comment on above: Order Comment: Reaso n for Exam Iron deficiency Reason for Exam High blood triglycerides Performed By: #### C BC #### [facility] [address] [place] [address] #### RPR W RFX #### [facility] , ALT [Catalytic activity/Vol] 14 U/L Normal 7-52 [facility] Comment on above: Order Comment: Reaso n for Exam Iron deficiency Reason for Exam High blood triglycerides Performed By: #### C BC #### [address] #### RPR W RFX #### [facility] , Anion gap [Moles/Vol] 10.2 mmol/L Normal 6.0-15.0 [facility] Comment on above: Order Comment: Reaso n for Exam Iron deficiency Reason for Exam High blood triglycerides Performed By: #### C BC #### [facility] [address] [place] [address] #### RPR W RFX #### [facility] , AST [Catalytic activity/Vol] 13 U/L Normal 13-39 [facility] Comment on above: Order Comment: Reaso n for Exam Iron deficiency Reason for Exam High blood triglycerides Performed By: #### C BC #### [address] #### RPR W RFX #### [facility] , Bilirubin [Mass/Vol] 0.3 mg/dL Normal 0.3-1.0 [facility] Comment on above: Order Comment: Reaso n for Exam Iron deficiency Reason for Exam High blood triglycerides Performed By: #### C BC #### [facility] [address] [place] [address] #### RPR W RFX #### [facility] , Calcium [Mass/Vol] 9.0 mg/dL Normal 8.6-10.3 [facility] Comment on above: Order Comment: Reaso n for Exam Iron deficiency Reason for Exam High blood triglycerides Performed By: #### C BC #### [facility] [address] [place] [address] #### RPR W RFX #### [facility] , Chloride [Moles/Vol] 105 mmol/L Normal 98-107 [facility] Comment on above: Order Comment: Reaso n for Exam Iron deficiency Reason for Exam High blood triglycerides Performed By: #### C BC #### [facility] [address] [place] [address] #### RPR W RFX #### [facility] , CO2 [Moles/Vol] 27.9 mmol/L Normal 21.0-31.0 [facility] Comment on above: Order Comment: Reaso n for Exam Iron deficiency Reason for Exam High blood triglycerides Performed By: #### C BC #### [facility] [address] [place] [address] [place] #### RPR W RFX #### [facility] , Creatinine [Mass/Vol] 0.69 mg/dL Normal 0.60-1.20 [facility] Comment on above: Order Comment: Reaso n for Exam Iron deficiency Reason for Exam High blood triglycerides Performed By: #### C BC #### [facility] [address] [place] [address] [place] #### RPR W RFX #### [facility] , GFR/1.73 sq M.predicted MDRD (S/P/Bld) [Vol rate/Area] mL/min/{1.73_m2} Normal [facility] Comment on above: Order Comment: Reaso n for Exam Iron deficiency Reason for Exam High blood triglycerides Performed By: #### C BC #### [facility] [address] [place] [address] [place] #### RPR W RFX #### [facility] , Globulin (S) [Mass/Vol] 2.9 g/dL Normal [facility] Comment on above: Order Comment: Reaso n for Exam Iron deficiency Reason for Exam High blood triglycerides Performed By: #### C BC #### [facility] [address] [place] [address] #### RPR W RFX #### [facility] , Glucose [Mass/Vol] 103 mg/dL High 70-100 [facility] Comment on above: Order Comment: Reaso n for Exam Iron deficiency Reason for Exam High blood triglycerides Result Comment: [place] Glucose Reference Range is dependent on time and content of last meal. Glucose of more than 200 mg/dL in a nonstressed, ambulatory subject supports the diagnosis of Diabetes Mellitus. ADA recommended reference range Performed By: #### C BC #### [facility] [address] [place] [address] [place] #### RPR W RFX #### [facility] , Potassium [Moles/Vol] 4.1 mmol/L Normal 3.5-5.1 [facility] Comment on above: Order Comment: Reaso n for Exam Iron deficiency Reason for Exam High blood triglycerides Performed By: #### C BC #### [facility] [address] [place] [address] [place] #### RPR W RFX #### [facility] , Protein [Mass/Vol] 7.0 g/dL Normal 6.4-8.9 [facility] Comment on above: Order Comment: Reaso n for Exam Iron deficiency Reason for Exam High blood triglycerides Performed By: #### C BC #### [facility] [address] [place] [address] [place] #### RPR W RFX #### [facility] , Sodium [Moles/Vol] 139 mmol/L Normal 136-145 [facility] Comment on above: Order Comment: Reaso n for Exam Iron deficiency Reason for Exam High blood triglycerides Performed By: #### C BC #### [facility] [address] [place] [address] #### RPR W RFX #### [facility] , Urea nitrogen [Mass/Vol] 12 mg/dL Normal 7-25 [facility] Comment on above: Order Comment: Reaso n for Exam Iron deficiency Reason for Exam High blood triglycerides Performed By: #### C BC #### [facility] [address] [place] [address] #### RPR W RFX #### [facility] , Iron and TIBC Profileon 03-19 9-2023 % Iron Saturation 8.6 % Low 20-50 [facility] Comment on above: Order Comment: Reaso n for Exam Iron deficiency Reason for Exam High blood triglycerides Performed By: #### C BC #### [address] #### RPR W RFX #### [facility] , Iron [Mass/Vol] 28 ug/dL Low 50-212 [facility] Comment on above: Order Comment: Reaso n for Exam Iron deficiency Reason for Exam High blood triglycerides Performed By: #### C BC #### [facility] [address] [place] [address] [place] #### RPR W RFX #### [facility] , Total Iron Binding Capacity 326 ug/dL Normal 255-450 [facility] Comment on above: Order Comment: Reaso n for Exam Iron deficiency Reason for Exam High blood triglycerides Performed By: #### C BC #### [facility] [address] [place] [address] [place] #### RPR W RFX #### [facility] , Transferrin [Mass/Vol] 233 mg/dL Normal 203-362 [facility] Comment on above: Order Comment: Reaso n for Exam Iron deficiency Reason for Exam High blood triglycerides Performed By: #### C BC #### [facility] [address] [place] [address] #### RPR W RFX #### [facility] , Lipid Panelon 04-15-2023 Cholesterol [Mass/Vol] 131 mg/dL Low 140-200 Th e [facility] Comment on above: Order Comment: Reaso n for Exam Iron deficiency Reason for Exam High blood triglycerides Result Comment: Chol less than 200 mg/dl low risk Chol 201-239 mg/dl borderline risk Chol 240 mg/dl and greater high risk Performed By: #### C BC #### [address] #### RPR W RFX #### [facility] , Cholesterol in HDL [Mass/Vol] 39 mg/dL Normal 23-92 [facility] Comment on above: Order Comment: Reaso n for Exam Iron deficiency Reason for Exam High blood triglycerides Result Comment: HDL CHOL ATP-III CLASSIFICATION Cardiovascular Risk HDL > or equal to 60 mg/dL LOW HDL < 40 mg/dL HIGH Performed By: #### C BC #### [facility] [address] [place] [address] #### RPR W RFX #### [facility] , Cholesterol.total/Chol esterol in HDL [Mass ratio] 3.4 {ratio} Normal <5.0 [facility] Comment on above: Order Comment: Reaso n for Exam Iron deficiency Reason for Exam High blood triglycerides Result Comment: PERF ORMED BY: [place] [address] PATHOLOGIST GANTRY RIGGER ALLA OROZCO M.D. Performed By: #### C BC #### [facility] [address] [place] [address] #### RPR W RFX #### [facility] , LDL Cholesterol,Calculated 58 mg/dL Normal 0-100 [facility] Comment on above: Order Comment: Reaso n for Exam Iron deficiency Reason for Exam High blood triglycerides Result Comment: LDL ATP III CLASSIFICATION LDL less than 100 mg/dL Optimal LDL 100-129 mg/dL Near or above optimal LDL 130-159 mg/dL Borderline high LDL 160-189 mg/dL High LDL greater than 189 mg/dL Very high Performed By: #### C BC #### [address] #### RPR W RFX #### [facility] , Triglyceride w/Reflex 170 mg/dL High 0-149 [facility] Comment on above: [...] method. Performed By: #### C BC #### [address] #### RPR W RFX #### [facility] , VLDL CHOLESTEROL 34 mg/dL Normal [facility] Comment on above: Order Comment: Reaso n for Exam Iron deficiency Reason for Exam High blood triglycerides Performed By: #### C BC #### [address] #### RPR W RFX #### [facility] , A1C with Estimated Average [facility] 03-17-2023 Glucose [Mass/Vol] 114 mg/dL Normal [facility] Comment on above: Order Comment: Name Collection Type:: Clean-Voided Midstream Result Comment: PERF ORMED BY: [place] [address] PATHOLOGIST GANTRY RIGGER ALLA OROZCO M.D. Performed By: #### A DDONUAPLUS, [place] #### [address] Glucose mean value [Mass/vol ume] in Blood Estimated from glycated hemoglobinOrdered By: Nataly Toure on 03-17-2023 Average glucose Estimated from glycated hemoglobin (Bld) [Mass/Vol] 114 mg/dL [facility] Hemoglobin A1c percentageOrd ered By: Nataly Toure on 03-17-2023 HbA1c (Bld) [Mass fraction] 5.6 % Normal 4.3-5.6 [facility] Comment on above: Increased risk for d iabetes: 5.7 - 6.4diabetes: >6.4glycemic control for adults with diabetes: <7.0 Order Comment: Name Collection Type:: Clean-Voided Midstream Result Comment: Incr eased risk for diabetes: 5.7 - 6.4 diabetes: >6.4 glycemic control for adults with diabetes: <7.0 Performed By: #### A [facility] #### [address] Insulinon 03-17-2023 Insulin 105.0 u[iU]/mL High 2.6-24.9 [facility] Comment on above: Order Comment: Name Collection Type:: Clean-Voided Midstream Result Comment: Perf ormed at: [facility] [id number] [place] Folder: Sam Lopez PhD, Phone: [phone] PERFORMED BY: [place] [address] PATHOLOGIST GANTRY RIGGER ALLA OROZCO M.D. Performed By: #### A JOSE [place] #### [address] Alanine aminotransferase [En zymatic activity/volume] in Serum or PlasmaOrdered By: Nataly Toure on 03-04-2023 ALT [Catalytic activity/Vol] 12 U/L Normal 7-52 [facility] Comment on above: Order Comment: Reaso n for Exam Obesity, unspecified;High blood triglycerides Reason for Exam Iron deficiency Reason for Exam High blood triglycerides Reason for Exam Hypothyroidism, unspecified type Performed By: #### C BC #### [address] #### RPR W RFX #### [facility] , Albumin [Mass/volume] in Ser um or Plasma by Bromocresol green (BCG) dye binding methoOrdered By: Nataly Toure on 03-04-2023 Albumin BCG dye [Mass/Vol] 3.7 g/dL 3.5-5.7 [facility] Alkaline phosphatase [Enzyma tic activity/volume] in Serum or PlasmaOrdered By: Nataly Toure on 03-04-2023 ALP [Catalytic activity/Vol] 100 U/L Normal 34-104 [facility] Comment on above: Order Comment: Reaso n for Exam Obesity, unspecified;High blood triglycerides Reason for Exam Iron deficiency Reason for Exam High blood triglycerides Reason for Exam Hypothyroidism, unspecified type Performed By: #### C BC #### [facility] [address] [place] [address] #### RPR W RFX #### [facility] , Aspartate aminotransferase [ Enzymatic activity/volume] in Serum or PlasmaOrdered By: Nataly Toure on 03-04-2023 AST [Catalytic activity/Vol] 12 U/L Low 13-39 [facility] Comment on above: Order Comment: Reaso n for Exam Obesity, unspecified;High blood triglycerides Reason for Exam Iron deficiency Reason for Exam High blood triglycerides Reason for Exam Hypothyroidism, unspecified type Performed By: #### C BC #### [facility] [address] [place] [address] [place] #### RPR W RFX #### [facility] , Automated basophil %Ordered By: Nataly Toure on 03-04-2023 Basophils/100 WBC (Bld) 1.0 % Normal . [facility] Comment on above: Order Comment: Reaso n for Exam Obesity, unspecified;High blood triglycerides Performed By: #### C BC #### [facility] [address] [place] [address] [place] #### RPR W RFX #### [facility] , Automated basophil countOrde red By: Nataly Toure on 03-04-2023 Basophils (Bld) [#/Vol] 0.1 10*3/uL Normal 0.0-0.2 [facility] Comment on above: Order Comment: Reaso n for Exam Obesity, unspecified;High blood triglycerides Result Comment: PERF ORMED BY: [place] [address] PATHOLOGIST GANTRY RIGGER ALLA OROZCO M.D. Performed By: #### C BC #### [facility] [address] [place] [address] [place] #### RPR W RFX #### [facility] , Automated blood monocyte cou ntOrdered By: Nataly Toure on 03-04-2023 Monocytes (Bld) [#/Vol] 0.6 10*3/uL Normal 0.0-0.8 [facility] Comment on above: Order Comment: Reaso n for Exam Obesity, unspecified;High blood triglycerides Performed By: #### C BC #### [place] [address] [place] #### RPR W RFX #### [facility] , Automated eosinophil %Ordere d By: Nataly Toure on 03-04-2023 Eosinophils/100 WBC (Bld) 2.0 % Normal . [facility] Comment on above: Order Comment: Reaso n for Exam Obesity, unspecified;High blood triglycerides Performed By: #### C BC #### [facility] [address] [place] [address] [place] #### RPR W RFX #### [facility] , Automated eosinophil countOr dered By: Nataly Toure on 03-04-2023 Eosinophils (Bld) [#/Vol] 0.1 10*3/uL Normal 0.0-0.45 [facility] Comment on above: Order Comment: Reaso n for Exam Obesity, unspecified;High blood triglycerides Performed By: #### C BC #### [facility] [address] [place] [address] [place] #### RPR W RFX #### [facility] , Automated monocyte %Ordered By: Nataly Toure on 03-04-2023 Monocytes/100 WBC (Bld) 9.2 % Normal . [facility] Comment on above: Order Comment: Reaso n for Exam Obesity, unspecified;High blood triglycerides Performed By: #### C BC #### [place] [address] [place] #### RPR W RFX #### [facility] , Automated neutrophil %Ordere d By: Nataly Toure on 03-04-2023 Neutrophils/100 WBC (Bld) 58.4 % Normal . [facility] Comment on above: Order Comment: Reaso n for Exam Obesity, unspecified;High blood triglycerides Performed By: #### C BC #### [address] #### RPR W RFX #### [facility] , Bilirubin.total [Mass/volume ] in Serum or PlasmaOrdered By: Nataly Toure on 03-04-2023 Bilirubin [Mass/Vol] 0.3 mg/dL Normal 0.3-1.0 [facility] Comment on above: Order Comment: Reaso n for Exam Obesity, unspecified;High blood triglycerides Reason for Exam Iron deficiency Reason for Exam High blood triglycerides Reason for Exam Hypothyroidism, unspecified type Performed By: #### C BC #### [facility] [address] [place] [address] [place] #### RPR W RFX #### [facility] , Calcium [Mass/volume] in Ser um or PlasmaOrdered By: Nataly Toure on 03-04-2023 Calcium [Mass/Vol] 8.9 mg/dL Normal 8.6-10.3 [facility] Comment on above: Order Comment: Reaso n for Exam Obesity, unspecified;High blood triglycerides Reason for Exam Iron deficiency Reason for Exam High blood triglycerides Reason for Exam Hypothyroidism, unspecified type Performed By: #### C BC #### [facility] [address] [place] [address] #### RPR W RFX #### [facility] , Carbon dioxide, total [Moles /volume] in Serum or PlasmaOrdered By: Nataly Toure on 03-04-2023 CO2 [Moles/Vol] 26.6 mmol/L Normal 21.0-31.0 [facility] Comment on above: Order Comment: Reaso n for Exam Obesity, unspecified;High blood triglycerides Reason for Exam Iron deficiency Reason for Exam High blood triglycerides Reason for Exam Hypothyroidism, unspecified type Performed By: #### C BC #### [facility] [address] [place] [address] [place] #### RPR W RFX #### [facility] , Chloride [Moles/volume] in S rosa or PlasmaOrdered By: Nataly Toure on 03-04-2023 Chloride [Moles/Vol] 105 mmol/L Normal 98-107 [facility] Comment on above: Order Comment: Reaso n for Exam Obesity, unspecified;High blood triglycerides Reason for Exam Iron deficiency Reason for Exam High blood triglycerides Reason for Exam Hypothyroidism, unspecified type Performed By: #### C BC #### [facility] [address] [place] [address] [place] #### RPR W RFX #### [facility] , Cholesterol [Mass/volume] in Serum or PlasmaOrdered By: Nataly Toure on 03-04-2023 Cholesterol [Mass/Vol] 231 mg/dL High 140-200 [facility] Comment on above: Chol less than 200 [...] risk Performed By: #### C BC #### [facility] [address] [place] [address] [place] #### RPR W RFX #### [facility] , Cholesterol in LDL Calc [Mas s/Vol]Ordered By: Nataly Toure on 03-04-2023 Cholesterol in LDL [Mass/Vol] TNP [facility] Comment on above: Test not performed Cholesterol in LDL [Mass/vol ume] in Serum or PlasmaOrdered By: Nataly Toure on 03-04-2023 Cholesterol in LDL [Mass/Vol] 81 mg/dL 0-100 [facility] Comment on above: LDL ATP III CLASSIFI CATIONLDL less than 100 mg/dL OptimalLDL 100-129 mg/dL Near or above optimalLDL 130-159 mg/dL Borderline highLDL 160-189 mg/dL HighLDL greater than 189 mg/dL Very high Cholesterol in VLDL Calc [Ma ss/Vol]Ordered By: Nataly Toure on 03-04-2023 Cholesterol in VLDL [Mass/Vol] 172 mg/dL [facility] Complete Blood Count Auto Di ffon 03-04-2023 Mean Corpuscular HGB Conc 32.7 g/dL Normal 32.0-35.0 [facility] Comment on above: Order Comment: Reaso n for Exam Obesity, unspecified;High blood triglycerides Performed By: #### C BC #### [facility] [address] [place] [address] [place] #### RPR W RFX #### [facility] , NRBC% 0.1 /100{WBC} Normal 0-0.5 [facility] Comment on above: Order Comment: Reaso n for Exam Obesity, unspecified;High blood triglycerides Performed By: #### C BC #### [facility] [address] [place] [address] [place] #### RPR W RFX #### [facility] , Comprehensive Metabolic Pane marco 03-04-2023 Albumin [Mass/Vol] 3.7 g/dL Normal 3.5-5.7 [facility] Comment on above: Order Comment: Reaso n for Exam Obesity, unspecified;High blood triglycerides Reason for Exam Iron deficiency Reason for Exam High blood triglycerides Reason for Exam Hypothyroidism, unspecified type Performed By: #### C BC #### [facility] [address] [place] [address] [place] #### RPR W RFX #### [facility] , GFR/1.73 sq M.predicted MDRD (S/P/Bld) [Vol rate/Area] mL/min/{1.73_m2} Normal [facility] Comment on above: Order Comment: Reaso n for Exam Obesity, unspecified;High blood triglycerides Reason for Exam Iron deficiency Reason for Exam High blood triglycerides Reason for Exam Hypothyroidism, unspecified type Performed By: #### C BC #### [facility] [address] [place] [address] #### RPR W RFX #### [facility] , Creatinine [Mass/volume] in Serum or PlasmaOrdered By: Nataly Toure on 03-04-2023 Creatinine [Mass/Vol] 0.72 mg/dL Normal 0.60-1.20 [facility] Comment on above: Order Comment: Reaso n for Exam Obesity, unspecified;High blood triglycerides Reason for Exam Iron deficiency Reason for Exam High blood triglycerides Reason for Exam Hypothyroidism, unspecified type Performed By: #### C BC #### [facility] [address] [place] [address] [place] #### RPR W RFX #### [facility] , Erythrocyte distribution wid th [Ratio] by Automated countOrdered By: Nataly Toure on 03-04-2023 Erythrocyte distribution width (RBC) [Ratio] 16.0 % High 11.9-15.3 [facility] Comment on above: Order Comment: Reaso n for Exam Obesity, unspecified;High blood triglycerides Performed By: #### C BC #### [facility] [address] [place] [address] [place] #### RPR W RFX #### [facility] , Erythrocytes [#/volume] in B lood by Automated countOrdered By: Nataly Toure on 03-04-2023 RBC (Bld) [#/Vol] 4.52 10*6/uL Normal 3.60-5.00 [facility] Comment on above: Order Comment: Reaso n for Exam Obesity, unspecified;High blood triglycerides Performed By: #### C BC #### [facility] [address] [place] [address] [place] #### RPR W RFX #### [facility] , Ferritin [Mass/volume] in Se rum or PlasmaOrdered By: Nataly Toure on 03-04-2023 Ferritin [Mass/Vol] 18.9 ng/mL Normal 11.0-306.8 [facility] Comment on above: Order Comment: Reaso n for Exam Obesity, unspecified;High blood triglycerides Reason for Exam Iron deficiency Reason for Exam High blood triglycerides Reason for Exam Hypothyroidism, unspecified type Performed By: #### C BC #### [facility] [address] [place] [address] [place] #### RPR W RFX #### [facility] , Glucose [Mass/volume] in Ser um or PlasmaOrdered By: Nataly Toure on 03-04-2023 Glucose [Mass/Vol] 95 mg/dL Normal 70-100 [facility] Comment on above: ADA recommended refe rence [...] for Exam Hypothyroidism, unspecified type Result Comment: [place] om Glucose Reference Range is dependent on time and content of last meal. Glucose of more than 200 mg/dL in a nonstressed, ambulatory subject supports the diagnosis of Diabetes Mellitus. ADA recommended reference range Performed By: #### C BC #### [facility] [address] [place] [address] [place] #### RPR W RFX #### [facility] , Hematocrit [Volume Fraction] of Blood by Automated countOrdered By: Nataly Toure on 03-04-2023 Hematocrit (Bld) [Volume fraction] 34.7 % Normal 34.0-46.4 [facility] Comment on above: Order Comment: Reaso n for Exam Obesity, unspecified;High blood triglycerides Performed By: #### C BC #### [facility] [address] [place] [address] [place] #### RPR W RFX #### [facility] , Hemoglobin [Mass/volume] in BloodOrdered By: Nataly Toure on 03-04-2023 Hemoglobin (Bld) [Mass/Vol] 11.3 g/dL Low 11.8-15.4 [facility] Comment on above: Order Comment: Reaso n for Exam Obesity, unspecified;High blood triglycerides Performed By: #### C BC #### [facility] [address] [place] [address] [place] #### RPR W RFX #### [facility] , Iron [Mass/volume] in Serum or PlasmaOrdered By: Nataly Toure on 03-04-2023 Iron [Mass/Vol] 43 ug/dL Low 50-212 [facility] Comment on above: Order Comment: Reaso n for Exam Obesity, unspecified;High blood triglycerides Reason for Exam Iron deficiency Reason for Exam High blood triglycerides Reason for Exam Hypothyroidism, unspecified type Performed By: #### C BC #### [facility] [address] [place] [address] [place] #### RPR W RFX #### [facility] , Iron and TIBC Profileon 02-15 % Iron Saturation 11.5 % Low 20-50 [facility] Comment on above: Order Comment: Reaso n for Exam Obesity, unspecified;High blood triglycerides Reason for Exam Iron deficiency Reason for Exam High blood triglycerides Reason for Exam Hypothyroidism, unspecified type Performed By: #### C BC #### [facility] [address] [place] [address] [place] #### RPR W RFX #### [facility] , Total Iron Binding Capacity 375 ug/dL Normal 255-450 [facility] Comment on above: Order Comment: Reaso n for Exam Obesity, unspecified;High blood triglycerides Reason for Exam Iron deficiency Reason for Exam High blood triglycerides Reason for Exam Hypothyroidism, unspecified type Performed By: #### C BC #### [facility] [address] [place] [address] [place] #### RPR W RFX #### [facility] , Iron binding capacity [Mass/ volume] in Serum or PlasmaOrdered By: Nataly Toure on 03-04-2023 Iron binding capacity [Mass/Vol] 375 ug/dL 255-450 [facility] Iron saturation [Mass Fracti on] in Serum or PlasmaOrdered By: Nataly Toure on 03-04-2023 Iron saturation [Mass fraction] 11.5 % 20-50 [facility] LDL Cholesterol Measuredon 0 03-04-2023 LDL Cholesterol Measured 81 mg/dL Normal 0-100 [facility] Comment on above: [...] high Performed By: #### C USTB #### [facility] [address] [place] [address] Leukocytes [#/volume] correc kee for nucleated erythrocytes in Blood by Automated counOrdered By: Nataly Toure on 03-04-2023 WBC corrected for nucl RBC Auto (Bld) [#/Vol] 6.2 10*3/uL 3.8-11.6 [facility] Leukocytes [#/volume] in Blo od by Automated countOrdered By: Nataly Toure on 03-04-2023 WBC (Bld) [#/Vol] 6.2 10*3/uL Normal 3.8-11.6 [facility] Comment on above: Order Comment: Reaso n for Exam Obesity, unspecified;High blood triglycerides Performed By: #### C BC #### [facility] [address] [place] [address] [place] #### RPR W RFX #### [facility] , Lipid Panelon 03-04-2023 LDL Cholesterol,Calculated Not performed Normal 0-100 [facility] Comment on above: Order Comment: Reaso n for Exam Obesity, unspecified;High blood triglycerides Reason for Exam Iron deficiency Reason for Exam High blood triglycerides Reason for Exam Hypothyroidism, unspecified type Performed By: #### C BC #### [facility] [address] [place] [address] #### RPR W RFX #### [facility] , Triglyceride w/Reflex 863 mg/dL High 0-149 [facility] Comment on above: [...] resulted. Performed By: #### C BC #### [facility] [address] [place] [address] [place] #### RPR W RFX #### [facility] , VLDL CHOLESTEROL 172 mg/dL Normal [facility] Comment on above: Order Comment: Reaso n for Exam Obesity, unspecified;High blood triglycerides Reason for Exam Iron deficiency Reason for Exam High blood triglycerides Reason for Exam Hypothyroidism, unspecified type Performed By: #### C BC #### [facility] [address] [place] [address] [place] #### RPR W RFX #### [facility] , Lymphocytes [#/volume] in Bl ood by Automated countOrdered By: Nataly Toure on 03-04-2023 Lymphocytes (Bld) [#/Vol] 1.8 10*3/uL Normal 1.00-4.8 [facility] Comment on above: Order Comment: Reaso n for Exam Obesity, unspecified;High blood triglycerides Performed By: #### C BC #### [facility] [address] [place] [address] [place] #### RPR W RFX #### [facility] , Lymphocytes/100 leukocytes i n Blood by Automated countOrdered By: Nataly Toure on 03-04-2023 Lymphocytes/100 WBC (Bld) 29.4 % Normal . [facility] Comment on above: Order Comment: Reaso n for Exam Obesity, unspecified;High blood triglycerides Performed By: #### C BC #### [facility] [address] [place] [address] [place] #### RPR W RFX #### [facility] , MCH [Entitic mass] by Automa kee countOrdered By: Nataly Toure on 03-04-2023 MCH (RBC) [Entitic mass] 25.1 pg Normal 24.7-34.3 [facility] Comment on above: Order Comment: Reaso n for Exam Obesity, unspecified;High blood triglycerides Performed By: #### C BC #### [facility] [address] [place] [address] [place] #### RPR W RFX #### [facility] , MCHC Auto (RBC) [Mass/Vol]Or dered By: Nataly Toure on 03-04-2023 MCHC (RBC) [Mass/Vol] 32.7 g/dL 32.0-35.0 [facility] MCV [Entitic volume] by Auto mated countOrdered By: Nataly Toure on 03-04-2023 MCV (RBC) [Entitic vol] 76.7 fL Low 80-100 [facility] Comment on above: Order Comment: Reaso n for Exam Obesity, unspecified;High blood triglycerides Performed By: #### C BC #### [facility] [address] [place] [address] [place] #### RPR W RFX #### [facility] , Neutrophils [#/volume] in Bl ood by Automated countOrdered By: Nataly Toure on 03-04-2023 Neutrophils (Bld) [#/Vol] 3.6 10*3/uL Normal 1.8-7.7 [facility] Comment on above: Order Comment: Reaso n for Exam Obesity, unspecified;High blood triglycerides Performed By: #### C BC #### [facility] [address] [place] [address] [place] #### RPR W RFX #### [facility] , No Panel InformationOrdered By: Nataly Toure on 03-04-2023 Estimated GFR (CKD-EPI) > 60.0 mL/Min [facility] Creatinine Clearance (Chem N/A [facility] Nucleated erythrocytes [Pres ence] in Blood by Automated countOrdered By: Nataly Toure on 03-04-2023 Nucleated RBC Auto Ql (Bld) 0.1 /100{WBC} 0-0.5 [facility] Platelet mean volume [Entiti c volume] in Blood by Automated countOrdered By: Nataly Toure on 03-04-2023 Platelet mean volume (Bld) [Entitic vol] 9.8 fL Normal 6.3-10.7 [facility] Comment on above: Order Comment: Reaso n for Exam Obesity, unspecified;High blood triglycerides Performed By: #### C BC #### [facility] [address] [place] [address] [place] #### RPR W RFX #### [facility] , Platelets [#/volume] in Bloo d by Automated countOrdered By: Nataly Toure on 03-04-2023 Platelets (Bld) [#/Vol] 217 10*3/uL Normal 150-450 [facility] Comment on above: Order Comment: Reaso n for Exam Obesity, unspecified;High blood triglycerides Performed By: #### C BC #### [facility] [address] [place] [address] [place] #### RPR W RFX #### [facility] , Potassium [Moles/volume] in Serum or PlasmaOrdered By: Nataly Toure on 03-04-2023 Potassium [Moles/Vol] 3.8 mmol/L Normal 3.5-5.1 [facility] Comment on above: Order Comment: Reaso n for Exam Obesity, unspecified;High blood triglycerides Reason for Exam Iron deficiency Reason for Exam High blood triglycerides Reason for Exam Hypothyroidism, unspecified type Performed By: #### C BC #### [facility] [address] [place] [address] #### RPR W RFX #### [facility] , Protein [Mass/volume] in Ser um or PlasmaOrdered By: Nataly Toure on 03-04-2023 Protein [Mass/Vol] 6.4 g/dL Normal 6.4-8.9 [facility] Comment on above: Order Comment: Reaso n for Exam Obesity, unspecified;High blood triglycerides Reason for Exam Iron deficiency Reason for Exam High blood triglycerides Reason for Exam Hypothyroidism, unspecified type Performed By: #### C BC #### [facility] [address] [place] [address] #### RPR W RFX #### [facility] , Serum globulin measurement b y calculation (mass/volume)Ordered By: Nataly Toure on 03-04-2023 Globulin (S) [Mass/Vol] 2.7 g/dL [facility] Comment on above: Order Comment: Reaso n for Exam Obesity, unspecified;High blood triglycerides Reason for Exam Iron deficiency Reason for Exam High blood triglycerides Reason for Exam Hypothyroidism, unspecified type Performed By: #### C BC #### [place] [address] [place] #### RPR W RFX #### [facility] , Serum or plasma albumin/glob ulin mass ratioOrdered By: Nataly Toure on 03-04-2023 Albumin/Globulin [Mass ratio] 1.4 {ratio} [facility] Comment on above: Order Comment: Reaso n for Exam Obesity, unspecified;High blood triglycerides Reason for Exam Iron deficiency Reason for Exam High blood triglycerides Reason for Exam Hypothyroidism, unspecified type Performed By: #### C BC #### [facility] [address] [place] [address] [place] #### RPR W RFX #### [facility] , Serum or plasma anion gap de terminationOrdered By: Nataly Toure on 03-04-2023 Anion gap [Moles/Vol] 11.2 mmol/L Normal 6.0-15.0 [facility] Comment on above: Order Comment: Reaso n for Exam Obesity, unspecified;High blood triglycerides Reason for Exam Iron deficiency Reason for Exam High blood triglycerides Reason for Exam Hypothyroidism, unspecified type Performed By: #### C BC #### [facility] [address] [place] [address] [place] #### RPR W RFX #### [facility] , Serum or plasma high density lipoprotein (HDL) cholesterol measurementOrdered By: Nataly Toure on 03-04-2023 Cholesterol in HDL [Mass/Vol] 35 mg/dL Normal 23-92 [facility] Comment on above: HDL CHOL ATP-III [...] HIGH Performed By: #### C BC #### [facility] [address] [place] [address] [place] #### RPR W RFX #### [facility] , Serum or plasma total choles terol/high density lipoprotein (HDL) cholesterol mass ratOrdered By: Nataly Toure on 03-04-2023 Cholesterol.total/Chol esterol in HDL [Mass ratio] 6.6 {ratio} Normal <5.0 [facility] Comment on above: Order Comment: Reaso n for Exam Obesity, unspecified;High blood triglycerides Reason for Exam Iron deficiency Reason for Exam High blood triglycerides Reason for Exam Hypothyroidism, unspecified type Performed By: #### C BC #### [facility] [address] [place] [address] #### RPR W RFX #### [facility] , Sodium [Moles/volume] in Ser um or PlasmaOrdered By: Nataly Toure on 03-04-2023 Sodium [Moles/Vol] 139 mmol/L Normal 136-145 [facility] Comment on above: Order Comment: Reaso n for Exam Obesity, unspecified;High blood triglycerides Reason for Exam Iron deficiency Reason for Exam High blood triglycerides Reason for Exam Hypothyroidism, unspecified type Performed By: #### C BC #### [facility] [address] [place] [address] #### RPR W RFX #### [facility] , Thyroid Stim Hormone w/Rflxo n 03-04-2023 Thyroid Stim Hormone w/Rflx 1.50 u[iU]/mL Normal 0.45-5.33 [facility] Comment on above: Order Comment: Reaso n for Exam Obesity, unspecified;High blood triglycerides Reason for Exam Iron deficiency Reason for Exam High blood triglycerides Reason for Exam Hypothyroidism, unspecified type Result Comment: PERF ORMED BY: [place] [address] PATHOLOGIST GANTRY RIGGER ALLA OROZCO M.D. Performed By: #### C USTB #### [facility] [address] [place] [address] Thyrotropin [Units/volume] i n Serum or PlasmaOrdered By: Nataly Toure on 03-04-2023 TSH Qn 1.50 m[IU]/L 0.45-5.33 [facility] Transferrin [Mass/volume] in Serum or PlasmaOrdered By: Nataly Toure on 03-04-2023 Transferrin [Mass/Vol] 268 mg/dL Normal 203-362 [facility] Comment on above: Order Comment: Reaso n for Exam Obesity, unspecified;High blood triglycerides Reason for Exam Iron deficiency Reason for Exam High blood triglycerides Reason for Exam Hypothyroidism, unspecified type Performed By: #### C BC #### [facility] [address] [place] [address] [place] #### RPR W RFX #### [facility] , Triglyceride [Mass/volume] i n Serum or PlasmaOrdered By: Nataly Toure on 03-04-2023 Triglyceride [Mass/Vol] 863 mg/dL 0-149 [facility] Comment on above: If the triglyceride [...] Urea nitrogen [Mass/Vol] 11 mg/dL Normal 7-25 [facility] Comment on above: Order Comment: Reaso n for Exam Obesity, unspecified;High blood triglycerides Reason for Exam Iron deficiency Reason for Exam High blood triglycerides Reason for Exam Hypothyroidism, unspecified type Performed By: #### C BC #### [facility] [address] [place] [address] [place] #### RPR W RFX #### [facility] , Vitamin B12 ser/plasOrdered By: Nataly Toure on 03-04-2023 Cobalamin (Vitamin B12) [Mass/Vol] 303 pg/mL Normal 180-914 [facility] Comment on above: Order Comment: Reaso n for Exam Obesity, unspecified;High blood triglycerides Reason for Exam Iron deficiency Reason for Exam High blood triglycerides Reason for Exam Hypothyroidism, unspecified type Performed By: #### C USTB #### [facility] [address] [place] [address] Automated basophil %Ordered By: EDE WAY on 02-13-2023 Basophils/100 WBC (Bld) 0.7 % Normal . [facility] Comment on above: Performed By: #### C BC #### [facility] [address] [place] [address] [place] #### RPR W RFX #### [facility] , Automated basophil countOrde red By: EDE WAY on 02-13-2023 Basophils (Bld) [#/Vol] 0.1 10*3/uL Normal 0.0-0.2 [facility] Comment on above: Result Comment: PERF ORMED BY: [place] [address] PATHOLOGIST GANTRY RIGGER ALLA OROZCO M.D. Performed By: #### C BC #### [address] #### RPR W RFX #### [facility] , Automated blood monocyte cou ntOrdered By: EDE WAY on 02-13-2023 Monocytes (Bld) [#/Vol] 0.8 10*3/uL Normal 0.0-0.8 [facility] Comment on above: Performed By: #### C BC #### [address] #### RPR W RFX #### [facility] , Automated eosinophil %Ordere d By: EDE WAY on 02-13-2023 Eosinophils/100 WBC (Bld) 0.6 % Normal . [facility] Comment on above: Performed By: #### C BC #### [facility] [address] [place] [address] [place] #### RPR W RFX #### [facility] , Automated eosinophil countOr dered By: EDE WAY on 02-13-2023 Eosinophils (Bld) [#/Vol] 0.1 10*3/uL Normal 0.0-0.45 [facility] Comment on above: Performed By: #### C BC #### [place] [address] [place] #### RPR W RFX #### [facility] , Automated erythrocytes count in urine sediment (number/area)Ordered By: EDE WAY on 02-13-2023 RBC Auto (Urine sed) [#/Area] Innumerable [HPF] 0-4 [facility] Automated leukocytes count i n urine sediment (number/area)Ordered By: EDE WAY on 02-13-2023 WBC Auto (Urine sed) [#/Area] 5-9 [HPF] 0-4 [facility] Automated monocyte %Ordered By: EDE WAY on 02-13-2023 Monocytes/100 WBC (Bld) 8.8 % Normal . [facility] Comment on above: Performed By: #### C BC #### [address] #### RPR W RFX #### [facility] , Automated neutrophil %Ordere d By: EDE WAY on 02-13-2023 Neutrophils/100 WBC (Bld) 73.7 % Normal . [facility] Comment on above: Performed By: #### C BC #### [address] #### RPR W RFX #### [facility] , Automated urine color determ inationOrdered By: EDE WAY on 02-13-2023 Color (U) [place] Critically abnormal Yellow [facility] Comment on above: Order Comment: Name Collection Type:: Voided Performed By: #### C USTB #### [address] Bilirubin Test strip Ql (U)O rdered By: EDE WAY on 02-13-2023 Bilirubin Ql (U) Negative Negative [facility] Complete Blood Count Auto Di ffon 02-13-2023 Mean Corpuscular HGB Conc 33.8 g/dL Normal 32.0-35.0 [facility] Comment on above: Performed By: #### C BC #### [address] #### RPR W RFX #### [facility] , NRBC% 0.1 /100{WBC} Normal 0-0.5 [facility] Comment on above: Performed By: #### C BC #### [address] #### RPR W RFX #### [facility] , Dipstick and Microscopicon 1 Appearance (U) Clear Normal Clear [facility] Comment on above: Order Comment: Name Collection Type:: Voided Performed By: #### C USTB #### [address] Bacteria,Urine None Seen Normal None Seen [facility] Comment on above: Order Comment: Name Collection Type:: Voided Performed By: #### C USTB #### [address] Bilirubin,Urine Negative Normal Negative [facility] Comment on above: Order Comment: Name Collection Type:: Voided Performed By: #### C USTB #### [address] Glucose Ql (U) Normal Normal Normal [facility] Comment on above: Order Comment: Name Collection Type:: Voided Performed By: #### C USTB #### [address] Hyaline Casts,Urine 0-8 Normal 0-8 [facility] Comment on above: Order Comment: Name Collection Type:: Voided Result Comment: PERF ORMED BY: [place] [address] PATHOLOGIST GANTRY RIGGER ALLA OROZCO M.D. Performed By: #### C USTB #### [address] Ketones Ql (U) Trace High Negative [facility] Comment on above: Order Comment: Name Collection Type:: Voided Performed By: #### C USTB #### [address] Leukocyte esterase Test strip Ql (U) 1+ High Negative [facility] Comment on above: Order Comment: Name Collection Type:: Voided Performed By: #### C USTB #### [address] Nitrite,Urine Negative Normal Negative [facility] Comment on above: Order Comment: Name Collection Type:: Voided Performed By: #### C USTB #### [address] Occult Blood,Urine 3+ High Negative [facility] Comment on above: Order Comment: Name Collection Type:: Voided Result Comment: PERF ORMED BY: [place] [address] PATHOLOGIST GANTRY RIGGER ALLA OROZCO M.D. Performed By: #### C USTB #### [address] RBC,Urine Innumerable High 0-4 [facility] Comment on above: Order Comment: Name Collection Type:: Voided Performed By: #### C USTB #### [address] Specificy [place],Urine 1.015 Normal 1.001-1.03 0 [facility] Comment on above: Order Comment: Name Collection Type:: Voided Performed By: #### C USTB #### [address] Squamous Epithelial Cell,Urine 3-4 High 0-2 [facility] Comment on above: Order Comment: Name Collection Type:: Voided Performed By: #### C USTB #### [address] Urobilinogen,Urine Normal Normal Normal [facility] Comment on above: Order Comment: Name Collection Type:: Voided Performed By: #### C USTB #### [place] [address] [place] WBC,Urine 5-9 High 0-4 [facility] Comment on above: Order Comment: Name Collection Type:: Voided Performed By: #### C USTB #### [address] Erythrocyte distribution wid th [Ratio] by Automated countOrdered By: EDE WAY on 02-13-2023 Erythrocyte distribution width (RBC) [Ratio] 16.2 % High 11.9-15.3 [facility] Comment on above: Performed By: #### C BC #### [facility] [address] [place] [address] #### RPR W RFX #### [facility] , Erythrocytes [#/volume] in B lood by Automated countOrdered By: EDE WAY on 02-13-2023 RBC (Bld) [#/Vol] 4.38 10*6/uL Normal 3.60-5.00 [facility] Comment on above: Performed By: #### C BC #### [address] #### RPR W RFX #### [facility] , Hematocrit [Volume Fraction] of Blood by Automated countOrdered By: EDE WAY on 02-13-2023 Hematocrit (Bld) [Volume fraction] 33.2 % Low 34.0-46.4 [facility] Comment on above: Performed By: #### C BC #### [facility] [address] [place] [address] [place] #### RPR W RFX #### [facility] , Hemoglobin [Mass/volume] in BloodOrdered By: EDE WAY on 02-13-2023 Hemoglobin (Bld) [Mass/Vol] 11.2 g/dL Low 11.8-15.4 [facility] Comment on above: Performed By: #### C BC #### [facility] [address] [place] [address] [place] #### RPR W RFX #### [facility] , Ketones Auto test strip (U) [Mass/Vol]Ordered By: EDE WAY on 02-13-2023 Ketones (U) [Mass/Vol] Trace Negative [facility] Marco 02-13-2023 L ------ Specimen: [id number] Received: 02/16/23 Status: NICK Forbes Num: [id number] Spec Type: Surgical Subm Dr: EDE WAY MD Tissues: A Placenta - 3rd Trimester (Greater than 28 weeks) (PLACENTA) Procedures: HE/3, Gross/Micro L5 Age/ Patient Sex Location Account Attending Physician Rosette Alba [id number] EDE WAY MD SPEC NUM: [id number] RECD: 02/16/23 STATUS: NICK FORBES NUM: [id number] MAURY: 02/13/23- SUBM DR: EDE WAY MD ENTERED: 02/16/[address] [facility] [address]: SPEC TYPE: Surgical DEPT: S ORDERED: HE/3, [...] less than 5% of the cut surface. 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 [employer] Vehicle sections are submitted in 3 cassettes as follows: A1 - cord and central disc A2 - membranes and marginal disc Specimen: [id number] Received: 02/16/23 Status: NICK Marcus Num: [id number] Spec Type: Surgical Subm Dr: EDE WAY MD Tissues: A Placenta - 3rd Trimester (Greater than 28 weeks) (PLACENTA) Procedures: HE3, Gross/Micro L5 Patient: Rosette Alba [id number] (Continued) Specimen: [id number] Received: 02/16/23 (Continued) Gross Description (Continued) Signed (signature on file) Ishan Richardson MD 02/17/232199 Specimen: [id number] Received: 02/16/23 Status: NICK Forbes Num: [id number] Spec Type: Surgical Subm Dr: EDE WAY MD Tissues: A Placenta - 3rd Trimester (Greater than 28 weeks) (PLACENTA) Procedures: HE/3, Gross/Micro L5 Patient: Rosette Alba [id number] (Continued) Specimen: [id number] Received: 02/16/23 (Continued) Gross Description (Continued) A3 - Central lesional area Microscopic Description Three H E slides reviewed. The microscopic examination confirms the diagnosis. CPT Codes 85897 Specimen: [id number] Received: 02/16/23 Status: NICK Forbes Num: [id number] Spec Type: Surgical Subm Dr: EDE WAY MD Tissues: A Placenta - 3rd Trimester (Greater than 28 weeks) (PLACENTA) Procedures: HE/3, Gross/Micro L5 Patient: Rosette Alba [id number] (Continued) Signed (signature on file) Ishan Richardson MD 02/17/23 2200 Normal [facility] Laboratory - UrinalysisOrder ed By: EDE WAY on 02-13-2023 Hyaline casts LM Ql (Urine sed) 0-8 [LPF] 0-8 [facility] Leukocytes [#/volume] correc kee for nucleated erythrocytes in Blood by Automated counOrdered By: EDE WAY on 02-13-2023 WBC corrected for nucl RBC Auto (Bld) [#/Vol] 9.1 10*3/uL 3.8-11.6 [facility] Leukocytes [#/volume] in Blo od by Automated countOrdered By: EDE WAY on 02-13-2023 WBC (Bld) [#/Vol] 9.1 10*3/uL Normal 3.8-11.6 [facility] Comment on above: Performed By: #### C BC #### [facility] [address] [place] [address] [place] #### RPR W RFX #### [facility] , Lymphocytes [#/volume] in Bl ood by Automated countOrdered By: EDE WAY on 02-13-2023 Lymphocytes (Bld) [#/Vol] 1.5 10*3/uL Normal 1.00-4.8 [facility] Comment on above: Performed By: #### C BC #### [facility] [address] [place] [address] [place] #### RPR W RFX #### [facility] , Lymphocytes/100 leukocytes i n Blood by Automated countOrdered By: EDE WAY on 02-13-2023 Lymphocytes/100 WBC (Bld) 16.2 % Normal . [facility] Comment on above: Performed By: #### C BC #### [address] #### RPR W RFX #### [facility] , MCH [Entitic mass] by Automa kee countOrdered By: EDE WAY on 02-13-2023 MCH (RBC) [Entitic mass] 25.6 pg Normal 24.7-34.3 [facility] Comment on above: Performed By: #### C BC #### [address] #### RPR W RFX #### [facility] , MCHC Auto (RBC) [Mass/Vol]Or dered By: EDE WAY on 02-13-2023 MCHC (RBC) [Mass/Vol] 33.8 g/dL 32.0-35.0 [facility] MCV [Entitic volume] by Auto mated countOrdered By: EDE WAY on 02-13-2023 MCV (RBC) [Entitic vol] 75.7 fL Low 80-100 [facility] Comment on above: Performed By: #### C BC #### [place] [address] [place] #### RPR W RFX #### [facility] , Neutrophils [#/volume] in Bl ood by Automated countOrdered By: EDE WAY on 02-13-2023 Neutrophils (Bld) [#/Vol] 6.7 10*3/uL Normal 1.8-7.7 [facility] Comment on above: Performed By: #### C BC #### [place] [address] [place] #### RPR W RFX #### [facility] , Nitrite Test strip Ql (U)Ord ered By: EDE WAY on 02-13-2023 Nitrite Ql (U) Negative Negative [facility] Nucleated erythrocytes [Pres ence] in Blood by Automated countOrdered By: EDE WAY on 02-13-2023 Nucleated RBC Auto Ql (Bld) 0.1 /100{WBC} 0-0.5 [facility] Platelet mean volume [Entiti c volume] in Blood by Automated countOrdered By: EDE WAY on 02-13-2023 Platelet mean volume (Bld) [Entitic vol] 8.5 fL Normal 6.3-10.7 [facility] Comment on above: Performed By: #### C BC #### [facility] [address] [place] [address] #### RPR W RFX #### [facility] , Platelets [#/volume] in Bloo d by Automated countOrdered By: EDE WAY on 02-13-2023 Platelets (Bld) [#/Vol] 178 10*3/uL Normal 150-450 [facility] Comment on above: Performed By: #### C BC #### [facility] [address] [place] [address] #### RPR W RFX #### [facility] , RPR w/rfx to Quant TP Abson 02-13-2023 RPR, Rfx Quant RPR Non-Reactive Normal Non Reactive [facility] Comment on above: Result Comment: Perf ormed at: CB - [facility] [address] [id number] [employer]ipper Lining Folder: Sam Lopez PhD, Phone: [phone] PERFORMED BY: [place] [address] PATHOLOGIST GANTRY RIGGER ALLA OROZCO M.D. Performed By: #### C BC #### [place] [address] [place] #### RPR W RFX #### [facility] , Reagin Ab [Presence] in Seru m by RPROrdered By: EDE WAY on 02-13-2023 Reagin Ab RPR Ql (S) Non-Reactive Non Reactive [facility] Comment on above: Performed at: [address] [id number] Director: Sam Lopez PhD, Phone: [phone] Specific gravity Auto test s trip (U) [Rel density]Ordered By: EDE WAY on 02-13-2023 Specific gravity (U) [Rel density] 1.015 1.001-1.03 0 [facility] Squamous epithelial cells de tection in urine sediment by light microscopyOrdered By: EDE WAY on 02-13-2023 Epithelial cells.squamous LM Ql (Urine sed) 3-4 [HPF] 0-2 [facility] Urine Cultureon 02-13-2023 Bacteria identified Cx Nom (U) No Growth 2 Days PERFORMED BY: [place] [address] PATHOLOGIST GANTRY RIGGER ALLA OROZCO M.D. Normal [facility] Comment on above: Performed By: #### C USTB #### [address] Urine bacteria detection by automated methodOrdered By: EDE WAY on 02-13-2023 Bacteria Auto Ql (U) None seen None Seen [facility] Urine clarity by refractomet ry automatedOrdered By: EDE WAY on 02-13-2023 Clarity Refractometry automated (U) Clear Clear [facility] Urine culture routineOrdered By: EDE WAY on 02-13-2023 Bacteria identified Cx Nom (U) No Growth 2 Days [facility] Urine glucose measurement by automated test strip (mass/volume)Ordered By: EDE WAY on 02-13-2023 Glucose Auto test strip (U) [Mass/Vol] Normal mg/dL Normal [facility] Urine hemoglobin detection b y automated test stripOrdered By: EDE WAY on 02-13-2023 Hemoglobin Auto test strip Ql (U) 3+ Negative [facility] Urine leukocyte esterase det ection by automated test stripOrdered By: EDE WAY on 12-30-2023 Leukocyte esterase Auto test strip Ql (U) 1+ Negative [facility] Urine pH measurement by auto mated test stripOrdered By: EDE WAY on 02-13-2023 pH (U) 6.5 [pH] Normal 5.0-9.0 [facility] Comment on above: Order Comment: Name Collection Type:: Voided Performed By: #### C USTB #### [facility] [address] [place] [address] Urine protein measurement by automated test strip (mass/volume)Ordered By: EDE WAY on 02-13-2023 Protein (U) [Mass/Vol] 30 mg/dL High Negative [facility] Comment on above: Order Comment: Name Collection Type:: Voided Performed By: #### C USTB #### [address] Urobilinogen Auto test strip (U) [Mass/Vol]Ordered By: EDE WAY on 02-13-2023 Urobilinogen (U) [Mass/Vol] Normal mg/dL Normal [facility] Amphetamine Screen Ql (U)Ord ered By: Radha Molina on 02-01-2023 Amphetamines Ql (U) Negative Negative [facility] Automated erythrocytes count in urine sediment (number/area)Ordered By: Radha Molina on 02-01-2023 RBC Auto (Urine sed) [#/Area] 3-4 [HPF] 0-4 [facility] Automated leukocytes count i n urine sediment (number/area)Ordered By: Radha Molina on 02-01-2023 WBC Auto (Urine sed) [#/Area] 10-19 [HPF] 0-4 [facility] Automated urine color determ inationOrdered By: Radha Molina on 02-01-2023 Color (U) Yellow Normal Yellow [facility] Comment on above: Order Comment: Name Collection Type:: Clean-Voided Midstream Performed By: #### C USTB #### [address] Automated urine sediment esteban cium oxalate crystal count by microscopy (number/high powOrdered By: Radha Molina on 02-01-2023 Calcium oxalate crystals LM.HPF (Urine sed) [#/Area] 3+ [HPF] [facility] Barbiturates [Presence] in U rine by Screen methodOrdered By: Radha Molina on 02-01-2023 Barbiturates Screen Ql (U) Negative Negative [facility] Benzodiazepines Screen Ql (U )Ordered By: Radha Molina on 02-01-2023 Benzodiazepines Ql (U) Negative Negative [facility] Benzoylecgonine [Presence] i n Urine by Screen methodOrdered By: Radha Molina on 02-01-2023 Benzoylecgonine Screen Ql (U) Negative Negative [facility] Bilirubin Test strip Ql (U)O rdered By: Radha Molina on 02-01-2023 Bilirubin Ql (U) Negative Negative [facility] Dipstick and Microscopicon 1 04-04-2022 Appearance (U) Cloudy Critically abnormal Clear [facility] Comment on above: Order Comment: Name Collection Type:: Clean-Voided Midstream Performed By: #### C USTB #### [facility] [address] [place] [address] [place] Bacteria,Urine 1+ High None Seen [facility] Comment on above: Order Comment: Name Collection Type:: Clean-Voided Midstream Performed By: #### C USTB #### [facility] [address] [place] [id number] [place] Bilirubin,Urine Negative Normal Negative [facility] Comment on above: Order Comment: Name Collection Type:: Clean-Voided Midstream Performed By: #### C USTB #### [facility] [address] [place] [address] [place] Calcium Oxalate Crystals,Urine 3+ Normal [facility] Comment on above: Order Comment: Name Collection Type:: Clean-Voided Midstream Performed By: #### C USTB #### [facility] [address] [place] [id number] [place] Glucose Ql (U) Normal Normal Normal [facility] Comment on above: Order Comment: Name Collection Type:: Clean-Voided Midstream Performed By: #### C USTB #### [place] [address] [place] Hyaline Casts,Urine 0-8 Normal 0-8 [facility] Comment on above: Order Comment: Name Collection Type:: Clean-Voided Midstream Result Comment: PERF ORMED BY: [place] [address] PATHOLOGIST GANTRY RIGGER ALLA ORZOCO M.D. Performed By: #### C USTB #### [address] Ketones Ql (U) Trace High Negative [facility] Comment on above: Order Comment: Name Collection Type:: Clean-Voided Midstream Performed By: #### C USTB #### [address] Leukocyte esterase Test strip Ql (U) 2+ High Negative [facility] Comment on above: Order Comment: Name Collection Type:: Clean-Voided Midstream Performed By: #### C USTB #### [place] [address] [place] Nitrite,Urine Negative Normal Negative [facility] Comment on above: Order Comment: Name Collection Type:: Clean-Voided Midstream Performed By: #### C USTB #### [place] [address] [place] Occult Blood,Urine Negative Normal Negative [facility] Comment on above: Order Comment: Name Collection Type:: Clean-Voided Midstream Result Comment: PERF ORMED BY: [place] [address] PATHOLOGIST GANTRY RIGGER ALLA OROZCO M.D. Performed By: #### C USTB #### [place] [address] [place] Othe Crystals,Urine None Seen Normal [facility] Comment on above: Order Comment: Name Collection Type:: Clean-Voided Midstream Performed By: #### C USTB #### [place] [address] [place] Protein,Urine Trace High Negative [facility] Comment on above: Order Comment: Name Collection Type:: Clean-Voided Midstream Performed By: #### C USTB #### [address] RBC,Urine 3-4 Normal 0-4 [facility] Comment on above: Order Comment: Name Collection Type:: Clean-Voided Midstream Performed By: #### C USTB #### [address] Specificy [place],Urine 1.025 Normal 1.001-1.03 0 [facility] Comment on above: Order Comment: Name Collection Type:: Clean-Voided Midstream Performed By: #### C USTB #### [address] Squamous Epithelial Cell,Urine 10-19 High 0-2 [facility] Comment on above: Order Comment: Name Collection Type:: Clean-Voided Midstream Performed By: #### C USTB #### [address] Urobilinogen,Urine Normal Normal Normal [facility] Comment on above: Order Comment: Name Collection Type:: Clean-Voided Midstream Performed By: #### C USTB #### [address] WBC,Urine 10-19 High 0-4 [facility] Comment on above: Order Comment: Name Collection Type:: Clean-Voided Midstream Performed By: #### C USTB #### [address] Ketones Auto test strip (U) [Mass/Vol]Ordered By: Radha Molina on 02-01-2023 Ketones (U) [Mass/Vol] Trace Negative [facility] Laboratory - UrinalysisOrder ed By: Radha Molina on 02-01-2023 Hyaline casts LM Ql (Urine sed) 0-8 [LPF] 0-8 [facility] Nitrite Test strip Ql (U)Ord ered By: Radha Molina on 02-01-2023 Nitrite Ql (U) Negative Negative [facility] OB Urine Drug Screen (NO THC )on 02-01-2023 Amphetamine Screen,Urine Negative Normal Negative [facility] Comment on above: Performed By: #### C USTB #### [facility] [address] Barbiturate Screen,Urine Negative Normal Negative [facility] Comment on above: Performed By: #### C USTB #### [address] Benzodiazepines Screen,Urine Negative Normal Negative [facility] Comment on above: Performed By: #### C USTB #### [address] Cocaine Screen,Urine Negative Normal Negative [facility] Comment on above: Performed By: #### C USTB #### [address] Opiate Screen,Urine Negative Normal Negative [facility] Comment on above: Performed By: #### C USTB #### [address] Phencyclidine Screen, Urine Negative Normal Negative [facility] Comment on above: Result Comment: Thes e are unconfirmed results and should not be used for legal purposes. Drug Cut-Off Concentration: AMPH 1000 ng/mL FAVIOLA 200 ng/mL THA 200 ng/mL COCM 300 ng/mL OP 300 ng/mL PCP 25 ng/mL PERFORMED BY: [place] [address] PATHOLOGIST GANTRY RIGGER ALLA OROZCO M.D. Performed By: #### C USTB #### [address] Opiates [Presence] in Urine by Screen methodOrdered By: Radha Molina on 02-01-2023 Opiates Screen Ql (U) Negative Negative [facility] Phencyclidine Screen Ql (U)O rdered By: Radha Molina on 02-01-2023 Phencyclidine Ql (U) Negative Negative [facility] Comment on above: These are unconfirme d results and should not be used for legal purposes. Drug Cut-Off Concentration: AMPH 1000 ng/mL FAVIOLA 200 ng/mL THA 200 ng/mL COCM 300 ng/mL OP 300 ng/mL PCP 25 ng/mL Protein Auto test strip (U) [Mass/Vol]Ordered By: Radha Molina on 02-01-2023 Protein (U) [Mass/Vol] Trace mg/dL Negative [facility] Specific gravity Auto test s trip (U) [Rel density]Ordered By: Radha Molina on 02-01-2023 Specific gravity (U) [Rel density] 1.025 1.001-1.03 0 [facility] Squamous epithelial cells de tection in urine sediment by light microscopyOrdered By: Radha Molina on 02-01-2023 Epithelial cells.squamous LM Ql (Urine sed) 10-19 [HPF] 0-2 [facility] Urine Cultureon 02-01-2023 Bacteria identified Cx Nom (U) <9,000 colonies/ml mixed bacterial skin contaminants 2 Days PERFORMED BY: [place] [address] PATHOLOGIST GANTRY RIGGER ALLA OROZCO M.D. Normal [facility] Comment on above: Performed By: #### C USTB #### [address] Urine bacteria detection by automated methodOrdered By: Radha Molina on 02-01-2023 Bacteria Auto Ql (U) 1+ None Seen [facility] Urine clarity by refractomet ry automatedOrdered By: Radha Molina on 02-01-2023 Clarity Refractometry automated (U) Cloudy Clear [facility] Urine culture routineOrdered By: Radha Molina on 02-01-2023 Bacteria identified Cx Nom (U) 2 Days [facility] Urine glucose measurement by automated test strip (mass/volume)Ordered By: Radha Molina on 02-01-2023 Glucose Auto test strip (U) [Mass/Vol] Normal mg/dL Normal [facility] Urine hemoglobin detection b y automated test stripOrdered By: Radha Molina on 02-01-2023 Hemoglobin Auto test strip Ql (U) Negative Negative [facility] Urine leukocyte esterase det ection by automated test stripOrdered By: Radha Molina on 02-01-2023 Leukocyte esterase Auto test strip Ql (U) 2+ Negative [facility] Urine pH measurement by auto mated test stripOrdered By: Radha Molina on 02-01-2023 pH (U) 6.0 [pH] Normal 5.0-9.0 [facility] Comment on above: Order Comment: Name Collection Type:: Clean-Voided Midstream Performed By: #### C USTB #### [facility] [address] [place] [address] Urine sediment crystal ident ification by light microscopyOrdered By: Radha Molina on 02-01-2023 Crystals LM Nom (Urine sed) None seen [HPF] [facility] Urobilinogen Auto test strip (U) [Mass/Vol]Ordered By: Radha Molina on 02-01-2023 Urobilinogen (U) [Mass/Vol] Normal mg/dL Normal [facility] Amphetamine Screen Ql (U)Ord ered By: MARY KAY CANTU on 01-30-2023 Amphetamines Ql (U) Negative Negative [facility] Automated erythrocytes count in urine sediment (number/area)Ordered By: MARY KAY CANTU on 01-30-2023 RBC Auto (Urine sed) [#/Area] 0-1 [HPF] 0-4 [facility] Automated leukocytes count i n urine sediment (number/area)Ordered By: MARY KAY CANTU on 01-30-2023 WBC Auto (Urine sed) [#/Area] 3-4 [HPF] 0-4 [facility] Automated urine color determ inationOrdered By: MARY KAY CANTU on 01-30-2023 Color (U) Yellow Normal Yellow [facility] Comment on above: Order Comment: Name Collection Type:: Clean-Voided Midstream Performed By: #### O BUDS, ADDONUAPLUS #### [facility] [address] [place] [address] [place] Barbiturates [Presence] in U rine by Screen methodOrdered By: MARY KAY CANTU on 01-30-2023 Barbiturates Screen Ql (U) Negative Negative [facility] Benzodiazepines Screen Ql (U )Ordered By: MARY KAY CANTU on 01-30-2023 Benzodiazepines Ql (U) Negative Negative [facility] Benzoylecgonine [Presence] i n Urine by Screen methodOrdered By: MARY KAY CANTU on 01-30-2023 Benzoylecgonine Screen Ql (U) Negative Negative [facility] Bilirubin Test strip Ql (U)O rdered By: MARY KAY CANTU on 01-30-2023 Bilirubin Ql (U) Negative Negative [facility] Dipstick and Microscopicon 1 04-02-2022 Appearance (U) Clear Normal Clear [facility] Comment on above: Order Comment: Name Collection Type:: Clean-Voided Midstream Performed By: #### O BUDS, ADDONUAPLUS #### [place] [address] [place] Bacteria,Urine None Seen Normal None Seen [facility] Comment on above: Order Comment: Name Collection Type:: Clean-Voided Midstream Performed By: #### O BUDS, ADDONUAPLUS #### [place] [address] [place] Bilirubin,Urine Negative Normal Negative [facility] Comment on above: Order Comment: Name Collection Type:: Clean-Voided Midstream Performed By: #### O BUDS, ADDONUAPLUS #### [facility] [address] [place] [address] [place] Glucose Ql (U) Normal Normal Normal [facility] Comment on above: Order Comment: Name Collection Type:: Clean-Voided Midstream Performed By: #### O BUDS, ADDONUAPLUS #### [facility] [address] [place] [address] [place] Hyaline Casts,Urine 0-8 Normal 0-8 [facility] Comment on above: Order Comment: Name Collection Type:: Clean-Voided Midstream Result Comment: PERF ORMED BY: [place] [address] PATHOLOGIST GANTRY RIGGER ALLA OROZCO M.D. Performed By: #### O BUDS, ADDONUAPLUS #### [place] [address] [place] Ketones Ql (U) Negative Normal Negative [facility] Comment on above: Order Comment: Name Collection Type:: Clean-Voided Midstream Performed By: #### O BUDS, ADDONUAPLUS #### [address] Leukocyte esterase Test strip Ql (U) 2+ High Negative [facility] Comment on above: Order Comment: Name Collection Type:: Clean-Voided Midstream Performed By: #### O BUDS, ADDONUAPLUS #### [place] [address] [place] Nitrite,Urine Negative Normal Negative [facility] Comment on above: Order Comment: Name Collection Type:: Clean-Voided Midstream Performed By: #### O BUDS, ADDONUAPLUS #### [place] [address] [place] Occult Blood,Urine Negative Normal Negative [facility] Comment on above: Order Comment: Name Collection Type:: Clean-Voided Midstream Result Comment: PERF ORMED BY: [place] [address] PATHOLOGIST GANTRY RIGGER ALLA OROZCO M.D. Performed By: #### O BUDS, ADDONUAPLUS #### [place] [address] [place] Protein,Urine Negative Normal Negative [facility] Comment on above: Order Comment: Name Collection Type:: Clean-Voided Midstream Performed By: #### O BUDS, ADDONUAPLUS #### [place] [address] [place] RBC LM.HPF (Urine sed) [#/Area] 0 /[HPF] Normal 0-4 [facility] Comment on above: Order Comment: Name Collection Type:: Clean-Voided Midstream Performed By: #### O BUDS, ADDONUAPLUS #### [address] Specificy [place],Urine 1.017 Normal 1.001-1.03 0 [facility] Comment on above: Order Comment: Name Collection Type:: Clean-Voided Midstream Performed By: #### O BUDS, ADDONUAPLUS #### [address] Squamous Epithelial Cell,Urine 1-2 Normal 0-2 [facility] Comment on above: Order Comment: Name Collection Type:: Clean-Voided Midstream Performed By: #### O BUDS, ADDONUAPLUS #### [address] Urobilinogen,Urine Normal Normal Normal [facility] Comment on above: Order Comment: Name Collection Type:: Clean-Voided Midstream Performed By: #### O BUDS, ADDONUAPLUS #### [address] WBC,Urine 3-4 Normal 0-4 [facility] Comment on above: Order Comment: Name Collection Type:: Clean-Voided Midstream Performed By: #### O BUDS, ADDONUAPLUS #### [address] Ketones Auto test strip (U) [Mass/Vol]Ordered By: MARY KAY CANTU on 01-30-2023 Ketones (U) [Mass/Vol] Negative Negative [facility] Laboratory - UrinalysisOrder ed By: MARY KAY CANTU on 01-30-2023 Hyaline casts LM Ql (Urine sed) 0-8 [LPF] 0-8 [facility] Nitrite Test strip Ql (U)Ord ered By: MARY KAY CANTU on 01-30-2023 Nitrite Ql (U) Negative Negative [facility] OB Urine Drug Screen (NO THC )on 01-30-2023 Amphetamine Screen,Urine Negative Normal Negative [facility] Comment on above: Performed By: #### O BUDS, ADDONUAPLUS #### [address] Barbiturate Screen,Urine Negative Normal Negative [facility] Comment on above: Performed By: #### O BUDS, ADDONUAPLUS #### [address] Benzodiazepines Screen,Urine Negative Normal Negative [facility] Comment on above: Performed By: #### O BUDS, ADDONUAPLUS #### [address] Cocaine Screen,Urine Negative Normal Negative [facility] Comment on above: Performed By: #### O BUDS, ADDONUAPLUS #### [address] Opiate Screen,Urine Negative Normal Negative [facility] Comment on above: Performed By: #### O BUDS, ADDONUAPLUS #### [address] Phencyclidine Screen, Urine Negative Normal Negative [facility] Comment on above: Result Comment: Thes e are unconfirmed results and should not be used for legal purposes. Drug Cut-Off Concentration: AMPH 1000 ng/mL FAVIOLA 200 ng/mL THA 200 ng/mL COCM 300 ng/mL OP 300 ng/mL PCP 25 ng/mL PERFORMED BY: [place] [address] PATHOLOGIST GANTRY RIGGER ALLA OROZCO M.D. Performed By: #### O BUDS, ADDONUAPLUS #### [address] Opiates [Presence] in Urine by Screen methodOrdered By: MARY KAY CANTU on 01-30-2023 Opiates Screen Ql (U) Negative Negative [facility] Phencyclidine Screen Ql (U)O rdered By: MARY KAY CANTU on 01-30-2023 Phencyclidine Ql (U) Negative Negative [facility] Comment on above: These are unconfirme d results and should not be used for legal purposes. Drug Cut-Off Concentration: AMPH 1000 ng/mL FAVIOLA 200 ng/mL THA 200 ng/mL COCM 300 ng/mL OP 300 ng/mL PCP 25 ng/mL Protein Auto test strip (U) [Mass/Vol]Ordered By: MARY KAY CANTU on 01-30-2023 Protein (U) [Mass/Vol] Negative Negative [facility] Specific gravity Auto test s trip (U) [Rel density]Ordered By: MARY KAY CANTU on 01-30-2023 Specific gravity (U) [Rel density] 1.017 1.001-1.03 0 [facility] Squamous epithelial cells de tection in urine sediment by light microscopyOrdered By: MARY KAY CANTU on 01-30-2023 Epithelial cells.squamous LM Ql (Urine sed) 1-2 [HPF] 0-2 [facility] Urine bacteria detection by automated methodOrdered By: MARY KAY CANTU on 01-30-2023 Bacteria Auto Ql (U) None seen None Seen [facility] Urine clarity by refractomet ry automatedOrdered By: MARY KAY CANTU on 01-30-2023 Clarity Refractometry automated (U) Clear Clear [facility] Urine glucose measurement by automated test strip (mass/volume)Ordered By: MARY KAY CANTU on 01-30-2023 Glucose Auto test strip (U) [Mass/Vol] Normal mg/dL Normal [facility] Urine hemoglobin detection b y automated test stripOrdered By: MARY KAY CANTU on 01-30-2023 Hemoglobin Auto test strip Ql (U) Negative Negative [facility] Urine leukocyte esterase det ection by automated test stripOrdered By: MARY KAY CANTU on 01-30-2023 Leukocyte esterase Auto test strip Ql (U) 2+ Negative [facility] Urine pH measurement by auto mated test stripOrdered By: MARY KAY CANTU on 01-30-2023 pH (U) 6.5 [pH] Normal 5.0-9.0 [facility] Comment on above: Order Comment: Name Collection Type:: Clean-Voided Midstream Performed By: #### O BUDS, ADDONUAPLUS #### [address] Urobilinogen Auto test strip (U) [Mass/Vol]Ordered By: MARY KAY CANTU on 01-30-2023 Urobilinogen (U) [Mass/Vol] Normal mg/dL Normal [facility] S. agalactiae Org specific c x Ql (Unsp spec)Ordered By: Radha Molina on 01-05-2023 Group B Streptococcus Culture Strep. agalactiae Grp B [facility] Strep B Cultureon 01-05-2023 Strep B Culture ORGANISM: Strep. agalactiae Grp B (O:B) PERFORMED BY: [place] [address] PATHOLOGIST GANTRY RIGGER ALLA OROZCO M.D. Normal [facility] Comment on above: Performed By: #### C USTB #### [facility] [address] [place], [place] [address] [facility] Glucose Tolerance 3 Houron 1 02-21-2022 Glucose Tolerance 3 Hour Normal [facility] Comment on above: Result Comment: FAST ING 88 Col: 12/22/22 0803 1HR GLU 146 Col: 12/22/22 1017 2HR GLU 126 Col: 12/22/22 1117 3HR GLU 144 Col: 12/22/22 1217 NON-GESTATIONAL GESTATIONAL FASTING 70-100 < 92 1 HOUR < 200 < 180 2 HOUR < 140 < 153 3 HOUR NOT ESTABLISHED < 140 PERFORMED BY: [place] [address] PATHOLOGIST GANTRY RIGGER ALLA OROZCO M.D. Performed By: #### G TT3 #### [facility] [address] [place], [place] [address] [facility] Serum or plasma glucose tole nabeel 3 hours panelOrdered By: Radha Molina on 12-22-2022 Glucose tolerance 3 hours panel See comment [facility] Comment on above: FASTING 88 Col: 110 09/06 0803 1HR GLU 146 Col: 12/22/22 1017 2HR GLU 126 Col: 12/22/22 1117 3HR GLU 144 Col: 12/22/22 1217 fibronectinOrdered By: Radha Molina on 12-08-2022 Fibronectin. (Vag fld) [Mass/Vol] Negative Negative [facility] Alanine aminotransferase [En zymatic activity/volume] in Serum or PlasmaOrdered By: Nataly Toure on 12-03-2022 ALT [Catalytic activity/Vol] 7 U/L 752 [facility] Albumin [Mass/volume] in Ser um or Plasma by Bromocresol green (BCG) dye binding methoOrdered By: Nataly Toure on 12-03-2022 Albumin BCG dye [Mass/Vol] 3.4 g/dL 3.5-5.7 [facility] Alkaline phosphatase [Enzyma tic activity/volume] in Serum or PlasmaOrdered By: Nataly Jerniganc on 12-03-2022 ALP [Catalytic activity/Vol] 79 U/L 34-104 [facility] Aspartate aminotransferase [ Enzymatic activity/volume] in Serum or PlasmaOrdered By: Nataly Jerniganc on 12-03-2022 AST [Catalytic activity/Vol] 9 U/L 13-39 [facility] Basophils Auto (Bld) [#/Vol] Ordered By: Nataly Jerniganc on 12-03-2022 Basophils (Bld) [#/Vol] 0.0 10*3/uL 0.0-0.2 [facility] Basophils/100 WBC Auto (Bld) Ordered By: Nataly Jerniganc on 12-03-2022 Basophils/100 WBC (Bld) 0.1 % . [facility] Bilirubin.total [Mass/volume ] in Serum or PlasmaOrdered By: Nataly Toure on 12-03-2022 Bilirubin [Mass/Vol] 0.2 mg/dL 0.3-1.0 [facility] Calcium [Mass/volume] in Ser um or PlasmaOrdered By: Nataly Toure on 12-03-2022 Calcium [Mass/Vol] 8.9 mg/dL 8.6-10.3 [facility] Carbon dioxide, total [Moles /volume] in Serum or PlasmaOrdered By: Nataly Toure on 12-03-2022 CO2 [Moles/Vol] 21.9 mmol/L 21.0-31.0 [facility] Chloride [Moles/volume] in S rosa or PlasmaOrdered By: Nataly Jerniganc on 12-03-2022 Chloride [Moles/Vol] 102 mmol/L 98-107 [facility] Creatinine [Mass/volume] in Serum or PlasmaOrdered By: Nataly Toure on 12-03-2022 Creatinine [Mass/Vol] 0.49 mg/dL 0.60-1.20 [facility] Eosinophils Auto (Bld) [#/Vo l]Ordered By: Nataly Toure on 12-03-2022 Eosinophils (Bld) [#/Vol] 0.0 10*3/uL 0.0-0.45 [facility] Eosinophils/100 WBC Auto (Bl d)Ordered By: Nataly Toure on 12-03-2022 Eosinophils/100 WBC (Bld) 0.3 % . [facility] Erythrocyte distribution wid th Auto (RBC) [Ratio]Ordered By: Nataly Toure on 12-03-2022 Erythrocyte distribution width (RBC) [Ratio] 14.4 % 11.9-15.3 [facility] Globulin Calc (S) [Mass/Vol] Ordered By: Nataly Toure on 12-03-2022 Globulin (S) [Mass/Vol] 3.3 g/dL [facility] Glucose [Mass/volume] in Ser um or PlasmaOrdered By: Nataly Toure on 12-03-2022 Glucose [Mass/Vol] 94 mg/dL 70-100 [facility] Comment on above: ADA recommended refe rence rangeRandom Glucose Reference Range is dependent on time and content of last meal. Glucose of more than 200 mg/dL in a nonstressed, ambulatory subject supports the diagnosis of Diabetes Mellitus. Hematocrit Auto (Bld) [Volum e fraction]Ordered By: Nataly Toure on 12-03-2022 Hematocrit (Bld) [Volume fraction] 33.8 % 34.0-46.4 [facility] Hemoglobin [Mass/volume] in BloodOrdered By: Nataly Toure on 12-03-2022 Hemoglobin (Bld) [Mass/Vol] 11.0 g/dL 11.8-15.4 [facility] Iron [Mass/volume] in Serum or PlasmaOrdered By: Nataly Toure on 12-03-2022 Iron [Mass/Vol] 38 ug/dL 50-212 [facility] Iron binding capacity [Mass/ volume] in Serum or PlasmaOrdered By: Nataly Toure on 12-03-2022 Iron binding capacity [Mass/Vol] 587 ug/dL 255-450 [facility] Iron saturation [Mass Fracti on] in Serum or PlasmaOrdered By: Nataly Toure on 12-03-2022 Iron saturation [Mass fraction] 6.5 % 20-50 [facility] Leukocytes [#/volume] correc kee for nucleated erythrocytes in Blood by Automated counOrdered By: Nataly Toure on 12-03-2022 WBC corrected for nucl RBC Auto (Bld) [#/Vol] 11.2 10*3/uL 3.8-11.6 [facility] Lymphocytes Auto (Bld) [#/Vo l]Ordered By: Nataly Toure on 12-03-2022 Lymphocytes (Bld) [#/Vol] 1.8 10*3/uL 1.00-4.8 [facility] Lymphocytes/100 WBC Auto (Bl d)Ordered By: Nataly Toure on 12-03-2022 Lymphocytes/100 WBC (Bld) 16.0 % . [facility] MCH Auto (RBC) [Entitic mass ]Ordered By: Nataly Toure on 12-03-2022 MCH (RBC) [Entitic mass] 26.0 pg 24.7-34.3 [facility] MCHC Auto (RBC) [Mass/Vol]Or dered By: Nataly Toure on 12-03-2022 MCHC (RBC) [Mass/Vol] 32.5 g/dL 32.0-35.0 [facility] MCV Auto (RBC) [Entitic vol] Ordered By: Nataly Toure on 12-03-2022 MCV (RBC) [Entitic vol] 80.1 fL 80-100 [facility] Magnesium [Mass/volume] in S rosa or PlasmaOrdered By: Nataly Toure on 12-03-2022 Magnesium [Mass/Vol] 1.7 mg/dL 1.9-2.7 [facility] Monocytes Auto (Bld) [#/Vol] Ordered By: Nataly Toure on 12-03-2022 Monocytes (Bld) [#/Vol] 0.8 10*3/uL 0.0-0.8 [facility] Monocytes/100 WBC Auto (Bld) Ordered By: Nataly Toure on 12-03-2022 Monocytes/100 WBC (Bld) 6.9 % . [facility] Neutrophils Auto (Bld) [#/Vo l]Ordered By: Nataly Toure on 12-03-2022 Neutrophils (Bld) [#/Vol] 8.6 10*3/uL 1.8-7.7 [facility] Neutrophils/100 WBC Auto (Bl d)Ordered By: Nataly Toure on 12-03-2022 Neutrophils/100 WBC (Bld) 76.7 % . [facility] No Panel InformationOrdered By: Nataly Toure on 12-03-2022 Estimated GFR (CKD-EPI) > 60.0 mL/Min [facility] Creatinine Clearance (Chem N/A [facility] Nucleated erythrocytes [Pres ence] in Blood by Automated countOrdered By: Nataly Toure on 12-03-2022 Nucleated RBC Auto Ql (Bld) 0.0 /100{WBC} 0-0.5 [facility] Platelet mean volume Auto (B ld) [Entitic vol]Ordered By: Nataly Toure on 12-03-2022 Platelet mean volume (Bld) [Entitic vol] 9.0 fL 6.3-10.7 [facility] Platelets Auto (Bld) [#/Vol] Ordered By: Nataly Toure on 12-03-2022 Platelets (Bld) [#/Vol] 205 10*3/uL 150-450 [facility] Potassium [Moles/volume] in Serum or PlasmaOrdered By: Nataly Toure on 12-03-2022 Potassium [Moles/Vol] 3.8 mmol/L 3.5-5.1 [facility] Protein [Mass/volume] in Ser um or PlasmaOrdered By: Nataly Toure on 12-03-2022 Protein [Mass/Vol] 6.7 g/dL 6.4-8.9 [facility] RBC Auto (Bld) [#/Vol]Ordere d By: Nataly Toure on 12-03-2022 RBC (Bld) [#/Vol] 4.22 10*6/uL 3.60-5.00 [facility] Serum or plasma albumin/glob ulin mass ratioOrdered By: Nataly Toure on 12-03-2022 Albumin/Globulin [Mass ratio] 1.0 {ratio} [facility] Serum or plasma anion gap de terminationOrdered By: Nataly Toure on 12-03-2022 Anion gap [Moles/Vol] 17.9 mmol/L 6.0-15.0 [facility] Sodium [Moles/volume] in Ser um or PlasmaOrdered By: Nataly Toure on 12-03-2022 Sodium [Moles/Vol] 138 mmol/L 136-145 [facility] Thyrotropin [Units/volume] i n Serum or PlasmaOrdered By: Nataly Toure on 12-03-2022 TSH Qn 2.65 m[IU]/L 0.45-5.33 [facility] Transferrin [Mass/volume] in Serum or PlasmaOrdered By: Nataly Toure on 12-03-2022 Transferrin [Mass/Vol] 419 mg/dL 203-362 [facility] Urea nitrogen [Mass/volume] in Serum or PlasmaOrdered By: Nataly Toure on 12-03-2022 Urea nitrogen [Mass/Vol] 11 mg/dL 7-25 [facility] WBC Auto (Bld) [#/Vol]Ordere d By: Nataly Toure on 12-03-2022 WBC (Bld) [#/Vol] 11.2 10*3/uL 3.8-11.6 [facility] Activated partial thrombopla stin time (aPTT) in platelet poor plasma by coagulation aOrdered By: Staci Ortiz on 12-01-2022 aPTT Coag (PPP) [Time] 26.8 s 25.1-36.5 [facility] Comment on above: A hematocrit value g reater than 55% may lead to inaccurate results in coagulation testing. Patients having hematocrit values >55% require a special collection tube for coagulation studies. Please contact the laboratory at [phone] for redraw instructions. Automated erythrocytes count in urine sediment (number/area)Ordered By: Staci Ortiz on 12-01-2022 RBC Auto (Urine sed) [#/Area] 0-1 [HPF] 0-4 [facility] Automated leukocytes count i n urine sediment (number/area)Ordered By: Staci Ortiz on 12-01-2022 WBC Auto (Urine sed) [#/Area] 3-4 [HPF] 0-4 [facility] Basophils Auto (Bld) [#/Vol] Ordered By: Staci Ortiz on 12-01-2022 Basophils (Bld) [#/Vol] 0.0 10*3/uL 0.0-0.2 [facility] Basophils/100 WBC Auto (Bld) Ordered By: Staci Ortiz on 12-01-2022 Basophils/100 WBC (Bld) 0.3 % . [facility] Bilirubin Test strip Ql (U)O rdered By: Staci Ortiz on 12-01-2022 Bilirubin Ql (U) Negative Negative [facility] COVID CepheidOrdered By: Noah Ortiz on 12-01-2022 SARS-CoV-2 (COVID-19) Ab IA Ql Negative Negative [facility] Comment on above: This is a duplicate Cepheid Xpert Xpress CoV-2/Flu/RSV Plus RNA by RT-PCR result to be used for statistical tracking purpose only. COVID-19 Detected/Not Detect edOrdered By: Staci Ortiz on 12-01-2022 SARS-CoV-2 (COVID-19) RNA SVETLANA+non-probe Ql (Nph) Not detected Not Detecte [facility] Comment on above: This is a duplicate RP2.1 COVID (PCR) result to be used for statistical tracking purpose only. Calcium [Mass/volume] in Ser um or PlasmaOrdered By: Staci Ortiz on 12-01-2022 Calcium [Mass/Vol] 9.1 mg/dL 8.6-10.3 [facility] Carbon dioxide, total [Moles /volume] in Serum or PlasmaOrdered By: Staci Ortiz on 12-01-2022 CO2 [Moles/Vol] 22.4 mmol/L 21.0-31.0 [facility] Chloride [Moles/volume] in S rosa or PlasmaOrdered By: Staci Ortiz on 12-01-2022 Chloride [Moles/Vol] 102 mmol/L 98-107 [facility] Color Auto (U)Ordered By: Elizabeth ko Angel on 12-01-2022 Color (U) Yellow Yellow [facility] Creatinine [Mass/volume] in Serum or PlasmaOrdered By: Staci Ortiz on 12-01-2022 Creatinine [Mass/Vol] 0.51 mg/dL 0.60-1.20 [facility] Eosinophils Auto (Bld) [#/Vo l]Ordered By: Staci Ortiz on 12-01-2022 Eosinophils (Bld) [#/Vol] 0.0 10*3/uL 0.0-0.45 [facility] Eosinophils/100 WBC Auto (Bl d)Ordered By: Staci Ortiz on 12-01-2022 Eosinophils/100 WBC (Bld) 0.4 % . [facility] Erythrocyte distribution wid th Auto (RBC) [Ratio]Ordered By: Staci Ortiz on 12-01-2022 Erythrocyte distribution width (RBC) [Ratio] 14.5 % 11.9-15.3 [facility] Fibrin D-dimer [Presence] in Platelet poor plasma by Latex agglutinationOrdered By: Staci Ortiz on 12-01-2022 Fibrin D-dimer LA Ql (PPP) 231 ng/mL 0-243 [facility] Comment on above: The reference range [...] coagulation studies. Please contact the laboratory at [phone] for redraw instructions. Glucose [Mass/volume] in Ser um or PlasmaOrdered By: Staci Ortiz on 12-01-2022 Glucose [Mass/Vol] 88 mg/dL 70-100 [facility] Comment on above: ADA recommended refe rence rangeRandom Glucose Reference Range is dependent on time and content of last meal. Glucose of more than 200 mg/dL in a nonstressed, ambulatory subject supports the diagnosis of Diabetes Mellitus. HCG ( test) IA.rapi d Ql (U)Ordered By: Staci Ortiz on 12-01-2022 HCG ( test) Ql (U) Positive [facility] Hematocrit Auto (Bld) [Volum e fraction]Ordered By: Staci Ortiz on 12-01-2022 Hematocrit (Bld) [Volume fraction] 34.2 % 34.0-46.4 [facility] Hemoglobin [Mass/volume] in BloodOrdered By: Staci Ortiz on 12-01-2022 Hemoglobin (Bld) [Mass/Vol] 11.3 g/dL 11.8-15.4 [facility] INR in Platelet poor plasma by Coagulation assayOrdered By: Staci Ortiz on 12-01-2022 INR Coag (PPP) [Relative time] 0.9 {INR} [facility] Comment on above: INR Therapeutic Rang [...] on 12-01-2022 Ketones (U) [Mass/Vol] Negative Negative [facility] - UrinalysisOrder ed By: Staci Ortiz on 12-01-2022 Hyaline casts LM Ql (Urine sed) 0-8 [LPF] 0-8 [facility] Leukocytes [#/volume] correc kee for nucleated erythrocytes in Blood by Automated counOrdered By: Staci Ortiz on 12-01-2022 WBC corrected for nucl RBC Auto (Bld) [#/Vol] 12.1 10*3/uL 3.8-11.6 [facility] Lymphocytes Auto (Bld) [#/Vo l]Ordered By: Staci Ortiz on 12-01-2022 Lymphocytes (Bld) [#/Vol] 1.8 10*3/uL 1.00-4.8 [facility] Lymphocytes/100 WBC Auto (Bl d)Ordered By: Staci Ortiz on 12-01-2022 Lymphocytes/100 WBC (Bld) 14.9 % . [facility] MCH Auto (RBC) [Entitic mass ]Ordered By: Staci Ortiz on 12-01-2022 MCH (RBC) [Entitic mass] 26.4 pg 24.7-34.3 [facility] MCHC Auto (RBC) [Mass/Vol]Or dered By: Staci Ortiz on 12-01-2022 MCHC (RBC) [Mass/Vol] 33.1 g/dL 32.0-35.0 [facility] MCV Auto (RBC) [Entitic vol] Ordered By: Staci Ortiz on 12-01-2022 MCV (RBC) [Entitic vol] 79.7 fL 80-100 [facility] Monocyte distribution width [Entitic volume] in Blood by AutomatedOrdered By: Staci Ortiz on 12-01-2022 Monocyte distribution width Auto (Bld) [Entitic vol] 16.82 % 0.00-20.00 [facility] Monocytes Auto (Bld) [#/Vol] Ordered By: Staci Ortiz on 12-01-2022 Monocytes (Bld) [#/Vol] 0.9 10*3/uL 0.0-0.8 [facility] Monocytes/100 WBC Auto (Bld) Ordered By: Staci Ortiz on 12-01-2022 Monocytes/100 WBC (Bld) 7.6 % . [facility] Natriuretic peptide B [Mass/ Vol]Ordered By: Staci Ortiz on 12-01-2022 Natriuretic peptide B (Bld) [Mass/Vol] 10.0 pg/mL 5-100 [facility] Neutrophils Auto (Bld) [#/Vo l]Ordered By: Staci Ortiz on 12-01-2022 Neutrophils (Bld) [#/Vol] 9.3 10*3/uL 1.8-7.7 [facility] Neutrophils/100 WBC Auto (Bl d)Ordered By: Staci Ortiz on 12-01-2022 Neutrophils/100 WBC (Bld) 76.8 % . [facility] Nitrite Test strip Ql (U)Ord ered By: Staci Ortiz on 12-01-2022 Nitrite Ql (U) Negative Negative [facility] No Panel InformationOrdered By: Staci Ortiz on 12-01-2022 Estimated GFR (CKD-EPI) > 60.0 mL/Min [facility] Creatinine Clearance (Chem 194.78 [facility] Nucleated erythrocytes [Pres ence] in Blood by Automated countOrdered By: Staci Ortiz on 12-01-2022 Nucleated RBC Auto Ql (Bld) 0.0 /100{WBC} 0-0.5 [facility] Platelet mean volume Auto (B ld) [Entitic vol]Ordered By: Staci Ortiz on 12-01-2022 Platelet mean volume (Bld) [Entitic vol] 8.8 fL 6.3-10.7 [facility] Platelets Auto (Bld) [#/Vol] Ordered By: Staci Ortiz on 12-01-2022 Platelets (Bld) [#/Vol] 212 10*3/uL 150-450 [facility] Potassium [Moles/volume] in Serum or PlasmaOrdered By: Staci Ortiz on 12-01-2022 Potassium [Moles/Vol] 3.7 mmol/L 3.5-5.1 [facility] Protein Auto test strip (U) [Mass/Vol]Ordered By: Staci Ortiz on 12-01-2022 Protein (U) [Mass/Vol] Negative Negative [facility] Prothrombin time (PT)Ordered By: Staci Ortiz on 12-01-2022 PT Coag (PPP) [Time] 11.3 s 9.0-12.9 [facility] Comment on above: A hematocrit value g reater than 55% may lead to inaccurate results in coagulation testing. Patients having hematocrit values >55% require a special collection tube for coagulation studies. Please contact the laboratory at [phone] for redraw instructions. RBC Auto (Bld) [#/Vol]Ordere d By: Staci Ortiz on 12-01-2022 RBC (Bld) [#/Vol] 4.29 10*6/uL 3.60-5.00 [facility] Respiratory pathogens DNA an d RNA panel - Nasopharynx by SVETLANA with non-probe detectionOrdered By: Staci Ortiz on 12-01-2022 Respiratory pathogens DNA and RNA panel SVETLANA+non-probe (Nph) [facility] Respiratory pathogens DNA and RNA panel SVETLANA+non-probe (Nph) [facility] Serum or plasma anion gap de terminationOrdered By: Staci Ortiz on 12-01-2022 Anion gap [Moles/Vol] 13.3 mmol/L 6.0-15.0 [facility] Sodium [Moles/volume] in Ser um or PlasmaOrdered By: Staci Ortiz on 12-01-2022 Sodium [Moles/Vol] 134 mmol/L 136-145 [facility] Specific gravity Auto test s trip (U) [Rel density]Ordered By: Staci Ortiz on 12-01-2022 Specific gravity (U) [Rel density] 1.021 1.001-1.03 0 [facility] Squamous epithelial cells de tection in urine sediment by light microscopyOrdered By: Staci Ortiz on 12-01-2022 Epithelial cells.squamous LM Ql (Urine sed) 5-9 [HPF] 0-2 [facility] Troponin I.cardiac [Mass/vol ume] in Serum or Plasma by Detection limit <= 0.01 ng/Ordered By: Staci Ortiz on 12-01-2022 Troponin I.cardiac DL <= 0.01 ng/mL [Mass/Vol] < 2.3 pg/mL 0.0-15.0 [facility] Urea nitrogen [Mass/volume] in Serum or PlasmaOrdered By: Staci Ortiz on 12-01-2022 Urea nitrogen [Mass/Vol] 9 mg/dL 7-25 [facility] Urine bacteria detection by automated methodOrdered By: Staci Ortiz on 12-01-2022 Bacteria Auto Ql (U) None seen None Seen [facility] Urine clarity by refractomet ry automatedOrdered By: Staci Ortiz on 12-01-2022 Clarity Refractometry automated (U) Cloudy Clear [facility] Urine glucose measurement by automated test strip (mass/volume)Ordered By: Staci Ortiz on 12-01-2022 Glucose Auto test strip (U) [Mass/Vol] Normal mg/dL Normal [facility] Urine hemoglobin detection b y automated test stripOrdered By: Staci Ortiz on 12-01-2022 Hemoglobin Auto test strip Ql (U) Negative Negative [facility] Urine leukocyte esterase det ection by automated test stripOrdered By: Staci Ortiz on 12-01-2022 Leukocyte esterase Auto test strip Ql (U) 1+ Negative [facility] Urobilinogen Auto test strip (U) [Mass/Vol]Ordered By: Staci Ortiz on 12-01-2022 Urobilinogen (U) [Mass/Vol] Normal mg/dL Normal [facility] WBC Auto (Bld) [#/Vol]Ordere d By: Staci Ortiz on 12-01-2022 WBC (Bld) [#/Vol] 12.1 10*3/uL 3.8-11.6 [facility] pH Auto test strip (U)Ordere d By: Staci Ortiz on 12-01-2022 pH (U) 6.5 [pH] 5.0-9.0 [facility] Amphetamine Screen Ql (U)Ord ered By: TELMA Smith on 11-20-2022 Amphetamines Ql (U) Negative Negative [facility] Barbiturates [Presence] in U rine by Screen methodOrdered By: TELMA Smith on 11-20-2022 Barbiturates Screen Ql (U) Negative Negative [facility] Benzodiazepines Screen Ql (U )Ordered By: TELMA Smith on 11-20-2022 Benzodiazepines Ql (U) Negative Negative [facility] Benzoylecgonine [Presence] i n Urine by Screen methodOrdered By: TELMA Smith on 11-20-2022 Benzoylecgonine Screen Ql (U) Negative Negative [facility] Bilirubin Test strip Ql (U)O rdered By: TELMA Smith on 11-20-2022 Bilirubin Ql (U) Negative Negative [facility] Color Auto (U)Ordered By: MD DESEAN Smith on 11-20-2022 Color (U) Yellow Yellow [facility] Ketones Auto test strip (U) [Mass/Vol]Ordered By: TELMA Smith on 11-20-2022 Ketones (U) [Mass/Vol] Trace Negative [facility] Nitrite Test strip Ql (U)Ord ered By: TELMA Smith on 11-20-2022 Nitrite Ql (U) Negative Negative [facility] Opiates [Presence] in Urine by Screen methodOrdered By: TELMA Smith on 11-20-2022 Opiates Screen Ql (U) Negative Negative [facility] Phencyclidine Screen Ql (U)O rdered By: TELMA Smith on 11-20-2022 Phencyclidine Ql (U) Negative Negative [facility] Comment on above: These are unconfirme d results and should not be used for legal purposes. Drug Cut-Off Concentration: AMPH 1000 ng/mL FAVIOLA 200 ng/mL THA 200 ng/mL COCM 300 ng/mL OP 300 ng/mL PCP 25 ng/mL Protein Auto test strip (U) [Mass/Vol]Ordered By: TELMA Smith on 11-20-2022 Protein (U) [Mass/Vol] Negative Negative [facility] Specific gravity Auto test s trip (U) [Rel density]Ordered By: TELMA Smith on 11-20-2022 Specific gravity (U) [Rel density] 1.025 1.001-1.03 0 [facility] Urine clarity by refractomet ry automatedOrdered By: TELMA Smith on 11-20-2022 Clarity Refractometry automated (U) Clear Clear [facility] Urine glucose measurement by automated test strip (mass/volume)Ordered By: SHELLIE Smith on 11-20-2022 Glucose Auto test strip (U) [Mass/Vol] Normal mg/dL Normal [facility] Urine hemoglobin detection b y automated test stripOrdered By: TELMA Smith on 11-20-2022 Hemoglobin Auto test strip Ql (U) Negative Negative [facility] Urine leukocyte esterase det ection by automated test stripOrdered By: TELMA Smith on 11-20-2022 Leukocyte esterase Auto test strip Ql (U) Negative Negative [facility] Urobilinogen Auto test strip (U) [Mass/Vol]Ordered By: TELMA Smith on 11-20-2022 Urobilinogen (U) [Mass/Vol] Normal mg/dL Normal [facility] pH Auto test strip (U)Ordere d By: TEMLA Smith on 11-20-2022 pH (U) 6.5 [pH] 5.0-9.0 [facility] Amphetamine Screen Ql (U)Ord ered By: MARY KAY CANTU on 11-19-2022 Amphetamines Ql (U) Negative Negative [facility] Barbiturates [Presence] in U rine by Screen methodOrdered By: MARY KAY CANTU on 11-19-2022 Barbiturates Screen Ql (U) Negative Negative [facility] Benzodiazepines Screen Ql (U )Ordered By: MARY KAY CANTU on 11-19-2022 Benzodiazepines Ql (U) Negative Negative [facility] Benzoylecgonine [Presence] i n Urine by Screen methodOrdered By: MARY KAY CANTU on 11-19-2022 Benzoylecgonine Screen Ql (U) Negative Negative [facility] Bilirubin Test strip Ql (U)O rdered By: MARY KAY CANTU on 11-19-2022 Bilirubin Ql (U) Negative Negative [facility] Color Auto (U)Ordered By: LJ CANTU on 11-19-2022 Color (U) Yellow Yellow [facility] fibronectinOrdered By: MARY KAY CANTU on 11-19-2022 Fibronectin. (Vag fld) [Mass/Vol] Positive Negative [facility] Ketones Auto test strip (U) [Mass/Vol]Ordered By: MARY KAY CANTU on 11-19-2022 Ketones (U) [Mass/Vol] Trace Negative [facility] Nitrite Test strip Ql (U)Ord ered By: MARY KAY CANTU on 11-19-2022 Nitrite Ql (U) Negative Negative [facility] Opiates [Presence] in Urine by Screen methodOrdered By: MARY KAY CANTU on 11-19-2022 Opiates Screen Ql (U) Negative Negative [facility] Phencyclidine Screen Ql (U)O rdered By: MARY KAY CANTU on 11-19-2022 Phencyclidine Ql (U) Negative Negative [facility] Comment on above: These are unconfirme d results and should not be used for legal purposes. Drug Cut-Off Concentration: AMPH 1000 ng/mL FAVIOLA 200 ng/mL THA 200 ng/mL COCM 300 ng/mL OP 300 ng/mL PCP 25 ng/mL Protein Auto test strip (U) [Mass/Vol]Ordered By: MARY KAY CANTU on 11-19-2022 Protein (U) [Mass/Vol] Negative Negative [facility] Specific gravity Auto test s trip (U) [Rel density]Ordered By: MARY KAY CANTU on 11-19-2022 Specific gravity (U) [Rel density] 1.017 1.001-1.03 0 [facility] Urine clarity by refractomet ry automatedOrdered By: MARY KAY CANTU on 11-19-2022 Clarity Refractometry automated (U) Clear Clear [facility] Urine glucose measurement by automated test strip (mass/volume)Ordered By: MARY KAY CANTU on 11-19-2022 Glucose Auto test strip (U) [Mass/Vol] Normal mg/dL Normal [facility] Urine hemoglobin detection b y automated test stripOrdered By: MARY KAY CANTU on 11-19-2022 Hemoglobin Auto test strip Ql (U) Negative Negative [facility] Urine leukocyte esterase det ection by automated test stripOrdered By: MARY KAY CANTU on 11-19-2022 Leukocyte esterase Auto test strip Ql (U) Negative Negative [facility] Urobilinogen Auto test strip (U) [Mass/Vol]Ordered By: MARY KAY CANTU on 11-19-2022 Urobilinogen (U) [Mass/Vol] Normal mg/dL Normal [facility] pH Auto test strip (U)Ordere d By: MARY KAY KIMCATHLEEN on 11-19-2022 pH (U) 7.5 [pH] 5.0-9.0 [facility] US PREG TVon 07-14-2022 US PREG [...] PETRA SALCIDO Date: 2022-07-14 00:14 Normal [facility] AMYLASEon 07-13-2022 Amylase [Catalytic activity/Vol] 43 U/L Normal 25-115 [facility] Comment on above: Performed By: #### C BC #### [facility] [address] [address] [address] Moris Winter CBC AUTO DIFFon 07-13-2022 BASO # 0.0 103/ul Normal 0.0-0.1 [facility] Comment on above: Performed By: #### C BC #### [facility] [address] [address] [address] Moris Winter Basophils/100 WBC (Bld) 0.2 % Normal 0.2-2.0 [facility] Comment on above: Performed By: #### C BC #### [facility] [address] [place] [address] Dr. Moris Winter EO # 0.1 103/ul Normal 0.0-0.7 [facility] Comment on above: Performed By: #### C BC #### [facility] [address] [place] [address] Dr. Moris Winter Eosinophils/100 WBC (Bld) 1.2 % Normal 0.9-7.0 [facility] Comment on above: Performed By: #### C BC #### [facility] [address] [place] [address] Dr. Moris Winter Erythrocyte distribution width (RBC) [Ratio] 13.8 % Normal 11.0-15.0 [facility] Comment on above: Performed By: #### C BC #### [facility] [address] [place] [address] Dr. Moris Winter Hematocrit (Bld) [Volume fraction] 36.6 % Normal 36.0-48.0 [facility] Comment on above: Performed By: #### C BC #### [facility] [address] [place] [address] Dr. Moris Winter Hemoglobin (Bld) [Mass/Vol] 12.3 g/dL Normal 12.0-16.0 [facility] Comment on above: Performed By: #### C BC #### [facility] [address] [place] [address] Dr. Moris Winter IG # 0.03 10e3/ul Normal 0.00-0.03 [facility] Comment on above: Performed By: #### C BC #### [facility] [address] [place] [address] Dr. Moris Winter IG % 0.3 % Normal 0.0-0.5 [facility] Comment on above: Performed By: #### C BC #### [facility] [address] [place] [address] Dr. Moris Winter LYMPH # 2.1 103/ul Normal 1.2-3.8 [facility] Comment on above: Performed By: #### C BC #### [facility] [address] [place] [address] Dr. Moris Winter Lymphocytes/100 WBC (Bld) 24.3 % Normal 20.5-60.0 [facility] Comment on above: Performed By: #### C BC #### [facility] [address] [place] [address] Dr. Moris Winter MANUAL DIFF REQ NO Normal [facility] Comment on above: Performed By: #### C BC #### [facility] [address] [place] [address] Dr. Moris Winter MCH (RBC) [Entitic mass] 27.5 pg Normal 26.7-34.0 [facility] Comment on above: Performed By: #### C BC #### [facility] [address] [place] [address] Dr. Moris Winter MCHC (RBC) [Mass/Vol] 33.6 g/dL Normal 29.9-35.2 [facility] Comment on above: Performed By: #### C BC #### [facility] [address] [place] [address] Dr. Moris Winter MCV (RBC) [Entitic vol] 81.7 fL Normal 81.0-99.0 [facility] Comment on above: Performed By: #### C BC #### [facility] [address] [place] [address] Dr. Moris Winter MONO # 0.7 103/ul Normal 0.3-0.8 [facility] Comment on above: Performed By: #### C BC #### [facility] [address] [place] [address] Dr. Moris Winter Monocytes/100 WBC (Bld) 7.8 % Normal 1.7-12.0 [facility] Comment on above: Performed By: #### C BC #### [facility] [address] [place] [address] Dr. Moris Winter NEUT # 5.8 103/ul Normal 1.4-6.5 [facility] Comment on above: Performed By: #### C BC #### [facility] [address] [address] [address] Moris Winter Neutrophils/100 WBC (Bld) 66.2 % Normal 43.0-75.0 [facility] Comment on above: Performed By: #### C BC #### [facility] [address] [place] [address] Dr. Moris Winter Platelet mean volume (Bld) [Entitic vol] 10.2 fL Normal 9.5-13.5 [facility] Comment on above: Performed By: #### C BC #### [facility] [address] [place] [address] Dr. Moris Winter PLT 301 103/ul Normal 150-450 [facility] Comment on above: Performed By: #### C BC #### [facility] [address] [place] [address] Dr. Moris Winter RBC 4.48 106/ul Normal 4.20-5.40 [facility] Comment on above: Performed By: #### C BC #### [facility] [address] [place] [address] Dr. Moris Winter WBC 8.7 103/ul Normal 4.0-11.0 [facility] Comment on above: Performed By: #### C BC #### [facility] [address] [place] [address] Dr. Moris Winter ER URINE PROFILEon 3 Bilirubin Ql (U) Negative Normal NEGATIVE [facility] Comment on above: Performed By: #### P REGU #### [facility] [address] [place] [address] Dr. Moris Winter Clarity (U) CLEAR Normal CLEAR [facility] Comment on above: Performed By: #### P REGU #### [facility] [address] [place] [address] Dr. Moris Winter Color (U) LT. YELLOW Normal YELLOW [facility] Comment on above: Performed By: #### P REGU #### [facility] [address] [place] [address] Dr. Moris Winter ERUAHD A micrscopic examina tion will be performed if indicated. Normal [facility] Comment on above: Performed By: #### P REGU #### [facility] [address] [place] [address] Dr. Moris Winter Glucose Ql (U) Negative Normal NEGATIVE [facility] Comment on above: Performed By: #### P REGU #### [facility] [address] [place] [address] Dr. Moris Winter Hemoglobin Ql (U) Negative Normal NEGATIVE [facility] Comment on above: Performed By: #### P REGU #### [facility] [address] [place] [address] Dr. Moris Winter Ketones Ql (U) TRACE Abnormal NEGATIVE [facility] Comment on above: Performed By: #### P REGU #### [facility] [address] [place] [address] Dr. Moris Winter LEUKOCYTES TRACE Abnormal NEGATIVE [facility] Comment on above: Performed By: #### P REGU #### [facility] [address] [place] [address] Dr. Moris Winter Nitrite Ql (U) Negative Normal NEGATIVE [facility] Comment on above: Performed By: #### P REGU #### [facility] [address] [place] [address] Dr. Moris Winter pH (U) 7.0 [pH] Normal 5-9 [facility] Comment on above: Performed By: #### P REGU #### [facility] [address] [place] [address] Dr. Moris Winter SPEC GRAVITY 1.020 Normal 1.005-<=1. 025 [facility] Comment on above: Performed By: #### P REGU #### [facility] [address] [place] [address] Dr. Moris Winter UA PROTEIN Negative Normal NEGATIVE/ TRACE [facility] Comment on above: Performed By: #### P REGU #### [facility] [address] [place] [address] Dr. Moris Winter UR MICRO IND INDICATED Normal [facility] Comment on above: Performed By: #### P REGU #### [facility] [address] [place] [address] Dr. Moris Winter Urobilinogen Qn (U) 0.2 {Marcin'U}/dL Normal 0.2 - 1. 0 [facility] Comment on above: Performed By: #### P REGU #### [facility] [address] [place] [address] Dr. Moris Winter LIPASEon 07-13-2022 Lipase [Catalytic activity/Vol] 204.0 U/L Normal 73.0-393.0 [facility] Comment on above: Performed By: #### C BC #### [facility] [address] [place] [address] Dr. Moris Winter PREG QUANT HCGon 07-13-2022 HCG QUANT 1455 mIU/mL Normal [facility] Comment on above: Performed By: #### P REGU #### [facility] [address] [place] [address] Dr. Moris Winter HCG RANGE SEE BELOW Normal [facility] Comment on above: Result Comment: 5-50 0.2-1 WEEK 50-500 1-2 WEEKS 100-5,000 2-3 WEEKS 500-10,000 3-4 WEEKS 1,000-50,000 4-5 WEEKS 10,000-100,000 5-6 WEEKS 15,000-200,000 6-8 WEEKS 10,000-100,000 2-3 MONTHS Performed By: #### P REGU #### [facility] [address] [place] [address] Dr. Moris Winter URon 07-13-2022 , QUAL Positive Abnormal NEGATIVE [facility] Comment on above: Performed By: #### P REGU #### [facility] [address] [place] [address] Dr. Moris Winter PROF 14(COMP METB)on 023 Albumin [Mass/Vol] 3.3 g/dL Critically low 3.4-5.0 Th e [facility] Comment on above: Performed By: #### C BC #### [facility] [address] [place] [address] Dr. Moris Winter Albumin/Globulin [Mass ratio] 0.7 {ratio} Normal [facility] Comment on above: Performed By: #### C BC #### [facility] [address] [address] [address] Moris Winter ALP [Catalytic activity/Vol] 86 U/L Normal 46-116 [facility] Comment on above: Performed By: #### C BC #### [facility] [address] [address] [address] Moris Winter ALT [Catalytic activity/Vol] 16 U/L Normal 14-59 [facility] Comment on above: Performed By: #### C BC #### [facility] [address] [address] [address] Moris Winter Anion gap [Moles/Vol] 14.9 mmol/L Normal Th [facility] Comment on above: Performed By: #### C BC #### [facility] [address] [place] [address] Dr. Moris Winter AST [Catalytic activity/Vol] 12 U/L Critically low 15-37 [facility] Comment on above: Performed By: #### C BC #### [facility] [address] [address] [address] Moris Winter Bilirubin [Mass/Vol] 0.1 mg/dL Critically low 0.2-1.0 [facility] Comment on above: Performed By: #### C BC #### [facility] [address] [place] [address] Dr. Moris Winter Calcium [Mass/Vol] 9.3 mg/dL Normal 8.5-10.1 [facility] Comment on above: Performed By: #### C BC #### [facility] [address] [place] [address] Dr. Moris Winter Chloride [Moles/Vol] 103 mmol/L Normal 98-107 [facility] Comment on above: Performed By: #### C BC #### [facility] [address] [address] [address] Moris Winter CO2 [Moles/Vol] 25.4 mmol/L Normal 21.0-32.0 [facility] Comment on above: Performed By: #### C BC #### [facility] [address] [address] [address] Moris Winter Creatinine [Mass/Vol] 0.80 mg/dL Normal 0.55-1.02 [facility] Comment on above: Performed By: #### C BC #### [facility] [address] [address] [address] Moris Winter EGFR-AF MALAWIAN >60 Normal >=60 [facility] Comment on above: Performed By: #### C BC #### [facility] [address] [address] [address] Moris Winter EGFR-NON AF MALAWIAN >60 Normal >=60 [facility] Comment on above: Performed By: #### C BC #### [facility] [address] [place] [address] Dr. Moris Winter Globulin (S) [Mass/Vol] 4.6 g/dL Normal [facility] Comment on above: Performed By: #### C BC #### [facility] [address] [place] [address] Dr. Moris Winter Glucose [Mass/Vol] 111 mg/dL Critically high 74-106 [facility] Comment on above: Performed By: #### C BC #### [facility] [address] [place] [address] Dr. Moris Winter Potassium [Moles/Vol] 3.3 mmol/L Critically low 3.5-5.1 [facility] Comment on above: Performed By: #### C BC #### [facility] [address] [place] [address] Dr. Moris Winter Protein [Mass/Vol] 7.9 g/dL Normal 6.4-8.2 [facility] Comment on above: Performed By: #### C BC #### [facility] [address] [place] [address] Dr. Moris Winter Sodium [Moles/Vol] 140 mmol/L Normal 136-145 [facility] Comment on above: Performed By: #### C BC #### [facility] [address] [place] [address] Dr. Moris Winter Urea nitrogen [Mass/Vol] 10.0 mg/dL Normal 7.0-18.0 [facility] Comment on above: Performed By: #### C BC #### [facility] [address] [place] [address] Dr. Moris Winter Urea nitrogen/Creatinine [Mass ratio] 12.5 mg/mg Normal [facility] Comment on above: Performed By: #### C BC #### [facility] [address] [place] [address] Dr. Moris Winter URINE MICROSCOPIC ONLYon BACTERIA TRACE Abnormal NONE SEEN [facility] Comment on above: Performed By: #### P REGU #### [facility] [address] [place] [address] Dr. Moris Winter Bacteria identified Cx Nom (U) NOT INDICATED Normal [facility] Comment on above: Performed By: #### P REGU #### [facility] [address] [place] [address] Dr. Moris Winter CAST NONE SEEN Normal NONE SEEN [facility] Comment on above: Performed By: #### P REGU #### [facility] [address] [place] [address] Dr. Moris Winter Crystals LM Nom (Urine sed) NONE SEEN Normal NONE SEEN [facility] Comment on above: Performed By: #### P REGU #### [facility] [address] [place] [address] Dr. Moris Winter Epithelial cells LM Ql (Urine sed) FEW Abnormal NONE SEEN /RARE [facility] Comment on above: Performed By: #### P REGU #### [facility] [address] [place] [address] Dr. Moris Winter MUCOUS NONE SEEN Normal NONE SEEN [facility] Comment on above: Performed By: #### P REGU #### [facility] [address] [place] [address] Dr. Moris Winter RBC 0-2 Normal 0-2 [facility] Comment on above: Performed By: #### P REGU #### [facility] [address] [place] [address] Dr. Moris Winter WBC 2-5 Abnormal NONE SEEN [facility] Comment on above: Performed By: #### P REGU #### [facility] [address] [address] [address] Moris Winter Cholesterol [Mass/volume] in Serum or PlasmaOrdered By: Nataly Toure on 06-16-2022 Cholesterol [Mass/Vol] 189 mg/dL 140-200 [facility] Comment on above: Chol less than 200 m g/dl low riskChol 201-239 mg/dl borderline riskChol 240 mg/dl and greater high risk Cholesterol in LDL Calc [Mas s/Vol]Ordered By: Nataly Toure on 06-16-2022 Cholesterol in LDL [Mass/Vol] 84 mg/dL 0-100 [facility] Comment on above: LDL ATP III CLASSIFI CATIONLDL less than 100 mg/dL OptimalLDL 100-129 mg/dL Near or above optimalLDL 130-159 mg/dL Borderline highLDL 160-189 mg/dL HighLDL greater than 189 mg/dL Very high Cholesterol in VLDL Calc [Ma ss/Vol]Ordered By: Nataly Toure on 06-16-2022 Cholesterol in VLDL [Mass/Vol] 54 mg/dL [facility] Serum or plasma high density lipoprotein (HDL) cholesterol measurementOrdered By: Nataly Toure on 06-16-2022 Cholesterol in HDL [Mass/Vol] 50 mg/dL 35-85 [facility] Comment on above: HDL CHOL ATP-III CLA SSIFICATION Cardiovascular RiskHDL > or equal to 60 mg/dL LOWHDL < 40 mg/dL HIGH Serum or plasma total choles terol/high density lipoprotein (HDL) cholesterol mass ratOrdered By: Nataly Toure on 06-16-2022 Cholesterol.total/Chol esterol in HDL [Mass ratio] 3.8 {ratio} <5.0 [facility] Triglyceride [Mass/volume] i n Serum or PlasmaOrdered By: Nataly Toure on 06-16-2022 Triglyceride [Mass/Vol] 273 mg/dL 0-149 [facility] Comment on above: TRIG ATP III CLASSIF ICATIONTRIG less than 150 mg/dL NormalTRIG 150-199 mg/dL Borderline highTRIG 200-500 mg/dL High TRIG greater than 500 mg/dL Very highStandard traceable to the Center for Disease Conrtrol and Prevention (CDC) test method. Alanine aminotransferase [En zymatic activity/volume] in Serum or PlasmaOrdered By: Nataly Toure on 06-04-2022 ALT [Catalytic activity/Vol] 7 U/L 7-52 [facility] Albumin [Mass/volume] in Ser um or Plasma by Bromocresol green (BCG) dye binding methoOrdered By: Nataly Toure on 06-04-2022 Albumin BCG dye [Mass/Vol] 3.8 g/dL 3.5-5.7 [facility] Alkaline phosphatase [Enzyma tic activity/volume] in Serum or PlasmaOrdered By: Nataly Toure on 06-04-2022 ALP [Catalytic activity/Vol] 78 U/L 34-104 [facility] Amylase [Enzymatic activity/ volume] in Serum or PlasmaOrdered By: Nataly Toure on 06-04-2022 Amylase [Catalytic activity/Vol] 29 U/L 29-103 [facility] Aspartate aminotransferase [ Enzymatic activity/volume] in Serum or PlasmaOrdered By: Nataly Toure on 06-04-2022 AST [Catalytic activity/Vol] 10 U/L 13-39 [facility] Basophils Auto (Bld) [#/Vol] Ordered By: Nataly Toure on 06-04-2022 Basophils (Bld) [#/Vol] 0.1 10*3/uL 0.0-0.2 [facility] Basophils/100 WBC Auto (Bld) Ordered By: Nataly Toure on 06-04-2022 Basophils/100 WBC (Bld) 1.4 % . [facility] Bilirubin.total [Mass/volume ] in Serum or PlasmaOrdered By: Nataly Toure on 06-04-2022 Bilirubin [Mass/Vol] 0.3 mg/dL 0.3-1.0 [facility] Calcium [Mass/volume] in Ser um or PlasmaOrdered By: Nataly Toure on 06-04-2022 Calcium [Mass/Vol] 9.3 mg/dL 8.6-10.3 [facility] Carbon dioxide, total [Moles /volume] in Serum or PlasmaOrdered By: Nataly Toure on 06-04-2022 CO2 [Moles/Vol] 29.6 mmol/L 21.0-31.0 [facility] Chloride [Moles/volume] in S rosa or PlasmaOrdered By: Nataly Toure on 06-04-2022 Chloride [Moles/Vol] 99 mmol/L 98-107 [facility] Creatinine [Mass/volume] in Serum or PlasmaOrdered By: Nataly Toure on 06-04-2022 Creatinine [Mass/Vol] 0.69 mg/dL 0.60-1.20 [facility] Eosinophils Auto (Bld) [#/Vo l]Ordered By: Nataly Toure on 06-04-2022 Eosinophils (Bld) [#/Vol] 0.2 10*3/uL 0.0-0.45 [facility] Eosinophils/100 WBC Auto (Bl d)Ordered By: Nataly Toure on 06-04-2022 Eosinophils/100 WBC (Bld) 1.8 % . [facility] Erythrocyte distribution wid th Auto (RBC) [Ratio]Ordered By: Nataly Toure on 06-04-2022 Erythrocyte distribution width (RBC) [Ratio] 14.6 % 11.9-15.3 [facility] Ferritin [Mass/volume] in Se rum or PlasmaOrdered By: Nataly Toure on 06-04-2022 Ferritin [Mass/Vol] 12.7 ng/mL 11.0-306.8 [facility] Globulin Calc (S) [Mass/Vol] Ordered By: Nataly Toure on 06-04-2022 Globulin (S) [Mass/Vol] 3.6 g/dL [facility] Glucose [Mass/volume] in Ser um or PlasmaOrdered By: Nataly Toure on 06-04-2022 Glucose [Mass/Vol] 103 mg/dL 70-100 [facility] Comment on above: ADA recommended refe rence rangeRandom Glucose Reference Range is dependent on time and content of last meal. Glucose of more than 200 mg/dL in a nonstressed, ambulatory subject supports the diagnosis of Diabetes Mellitus. Hematocrit Auto (Bld) [Volum e fraction]Ordered By: Nataly Toure on 06-04-2022 Hematocrit (Bld) [Volume fraction] 38.2 % 34.0-46.4 [facility] Hemoglobin [Mass/volume] in BloodOrdered By: Nataly Toure on 06-04-2022 Hemoglobin (Bld) [Mass/Vol] 12.7 g/dL 11.8-15.4 [facility] Leukocytes [#/volume] correc kee for nucleated erythrocytes in Blood by Automated counOrdered By: Nataly Toure on 06-04-2022 WBC corrected for nucl RBC Auto (Bld) [#/Vol] 8.7 10*3/uL 3.8-11.6 [facility] Lipase [Enzymatic activity/v olume] in Serum or PlasmaOrdered By: Nataly Toure on 06-04-2022 Lipase [Catalytic activity/Vol] 38.0 U/L 11.0-82.0 [facility] Lymphocytes Auto (Bld) [#/Vo l]Ordered By: Nataly Toure on 06-04-2022 Lymphocytes (Bld) [#/Vol] 1.7 10*3/uL 1.00-4.8 [facility] Lymphocytes/100 WBC Auto (Bl d)Ordered By: Nataly Toure on 06-04-2022 Lymphocytes/100 WBC (Bld) 19.7 % . [facility] MCH Auto (RBC) [Entitic mass ]Ordered By: Nataly Toure on 06-04-2022 MCH (RBC) [Entitic mass] 26.8 pg 24.7-34.3 [facility] MCHC Auto (RBC) [Mass/Vol]Or dered By: Nataly Toure on 06-04-2022 MCHC (RBC) [Mass/Vol] 33.2 g/dL 32.0-35.0 [facility] MCV Auto (RBC) [Entitic vol] Ordered By: Nataly Toure on 06-04-2022 MCV (RBC) [Entitic vol] 80.7 fL 80-100 [facility] Monocytes Auto (Bld) [#/Vol] Ordered By: Nataly Toure on 06-04-2022 Monocytes (Bld) [#/Vol] 0.5 10*3/uL 0.0-0.8 [facility] Monocytes/100 WBC Auto (Bld) Ordered By: Nataly Toure on 06-04-2022 Monocytes/100 WBC (Bld) 6.1 % . [facility] Neutrophils Auto (Bld) [#/Vo l]Ordered By: Nataly Toure on 06-04-2022 Neutrophils (Bld) [#/Vol] 6.2 10*3/uL 1.8-7.7 [facility] Neutrophils/100 WBC Auto (Bl d)Ordered By: Nataly Toure on 06-04-2022 Neutrophils/100 WBC (Bld) 71.0 % . [facility] No Panel InformationOrdered By: Nataly Toure on 06-04-2022 Estimated GFR (CKD-EPI) > 60.0 mL/Min [facility] Creatinine Clearance (Chem N/A [facility] Nucleated erythrocytes [Pres ence] in Blood by Automated countOrdered By: Nataly Toure on 06-04-2022 Nucleated RBC Auto Ql (Bld) 0.2 /100{WBC} 0-0.5 [facility] Platelet mean volume Auto (B ld) [Entitic vol]Ordered By: Nataly Toure on 06-04-2022 Platelet mean volume (Bld) [Entitic vol] 10.2 fL 6.3-10.7 [facility] Platelets Auto (Bld) [#/Vol] Ordered By: Nataly Toure on 06-04-2022 Platelets (Bld) [#/Vol] 245 10*3/uL 150-450 [facility] Potassium [Moles/volume] in Serum or PlasmaOrdered By: Nataly Toure on 06-04-2022 Potassium [Moles/Vol] 4.5 mmol/L 3.5-5.1 [facility] Protein [Mass/volume] in Ser um or PlasmaOrdered By: Nataly Toure on 06-04-2022 Protein [Mass/Vol] 7.4 g/dL 6.4-8.9 [facility] RBC Auto (Bld) [#/Vol]Ordere d By: Nataly Toure on 06-04-2022 RBC (Bld) [#/Vol] 4.73 10*6/uL 3.60-5.00 [facility] Serum or plasma albumin/glob ulin mass ratioOrdered By: Nataly Toure on 06-04-2022 Albumin/Globulin [Mass ratio] 1.1 {ratio} [facility] Serum or plasma anion gap de terminationOrdered By: Nataly Toure on 06-04-2022 Anion gap [Moles/Vol] 10.9 mmol/L 6.0-15.0 [facility] Serum or plasma insulin nikita urement (units/volume)Ordered By: Nataly Toure on 06-04-2022 Insulin Qn 128.0 u[iU]/mL 2.6-24.9 [facility] Comment on above: Performed at: [address] Director: Sam Lopez PhD, Phone: [phone] Sodium [Moles/volume] in Ser um or PlasmaOrdered By: Nataly Toure on 06-04-2022 Sodium [Moles/Vol] 135 mmol/L 136-145 [facility] Urea nitrogen [Mass/volume] in Serum or PlasmaOrdered By: Nataly Toure on 06-04-2022 Urea nitrogen [Mass/Vol] 9 mg/dL 7-25 [facility] WBC Auto (Bld) [#/Vol]Ordere d By: Nataly Toure on 06-04-2022 WBC (Bld) [#/Vol] 8.7 10*3/uL 3.8-11.6 [facility] AMYLASEon 06-03-2022 Amylase [Catalytic activity/Vol] 37 U/L Normal 25-115 [facility] Comment on above: Performed By: #### L IPA, CMP, KIM #### [facility] [address] [address] [address] Moris Winter CBC AUTO DIFFon 06-03-2022 BASO # 0.0 103/ul Normal 0.0-0.1 [facility] Comment on above: Performed By: #### C BC #### [facility] [address] [place] [address] Dr. Moris Winter Basophils/100 WBC (Bld) 0.1 % Critically low 0.2-2.0 [facility] Comment on above: Performed By: #### C BC #### [facility] [address] [place] [address] Dr. Moris Winter EO # 0.1 103/ul Normal 0.0-0.7 [facility] Comment on above: Performed By: #### C BC #### [facility] [address] [place] [address] Dr. Moris Winter Eosinophils/100 WBC (Bld) 1.6 % Normal 0.9-7.0 [facility] Comment on above: Performed By: #### C BC #### [facility] [address] [place] [address] Dr. Moris Winter Erythrocyte distribution width (RBC) [Ratio] 13.5 % Normal 11.0-15.0 [facility] Comment on above: Performed By: #### C BC #### [facility] [address] [place] [address] Dr. Moris Winter Hematocrit (Bld) [Volume fraction] 36.3 % Normal 36.0-48.0 [facility] Comment on above: Performed By: #### C BC #### [facility] [address] [place] [address] Dr. Moris Winter Hemoglobin (Bld) [Mass/Vol] 11.8 g/dL Critically low 12.0-16.0 [facility] Comment on above: Performed By: #### C BC #### [facility] [address] [place] [address] Dr. Moris Winter IG # 0.03 10e3/ul Normal 0.00-0.03 [facility] Comment on above: Performed By: #### C BC #### [facility] [address] [place] [address] Dr. Moris Winter IG % 0.4 % Normal 0.0-0.5 [facility] Comment on above: Performed By: #### C BC #### [facility] [address] [address] [address] Moris Winter LYMPH # 2.5 103/ul Normal 1.2-3.8 [facility] Comment on above: Performed By: #### C BC #### [facility] [address] [address] [address] Moris Winter Lymphocytes/100 WBC (Bld) 33.2 % Normal 20.5-60.0 [facility] Comment on above: Performed By: #### C BC #### [facility] [address] [place] [address] Dr. Moris Winter MANUAL DIFF REQ NO Normal [facility] Comment on above: Performed By: #### C BC #### [facility] [address] [place] [address] Dr. Moris Winter MCH (RBC) [Entitic mass] 26.2 pg Critically low 26.7-34.0 [facility] Comment on above: Performed By: #### C BC #### [facility] [address] [place] [address] Dr. Moris Winter MCHC (RBC) [Mass/Vol] 32.5 g/dL Normal 29.9-35.2 [facility] Comment on above: Performed By: #### C BC #### [facility] [address] [place] [address] Dr. Moris Winter MCV (RBC) [Entitic vol] 80.7 fL Critically low 81.0-99.0 [facility] Comment on above: Performed By: #### C BC #### [facility] [address] [place] [address] Dr. Moris Winter MONO # 0.7 103/ul Normal 0.3-0.8 [facility] Comment on above: Performed By: #### C BC #### [facility] [address] [place] [address] Dr. Moris Winter Monocytes/100 WBC (Bld) 9.9 % Normal 1.7-12.0 [facility] Comment on above: Performed By: #### C BC #### [facility] [address] [place] [address] Dr. Moris Winter NEUT # 4.1 103/ul Normal 1.4-6.5 [facility] Comment on above: Performed By: #### C BC #### [facility] [address] [place] [address] Dr. Moris Winter Neutrophils/100 WBC (Bld) 54.8 % Normal 43.0-75.0 [facility] Comment on above: Performed By: #### C BC #### [facility] [address] [place] [address] Dr. Moris Winter Platelet mean volume (Bld) [Entitic vol] 10.7 fL Normal 9.5-13.5 [facility] Comment on above: Performed By: #### C BC #### [facility] [address] [place] [address] Dr. Moris Winter PLT 248 103/ul Normal 150-450 [facility] Comment on above: Performed By: #### C BC #### [facility] [address] [place] [address] Dr. Moris Winetr RBC 4.50 106/ul Normal 4.20-5.40 [facility] Comment on above: Performed By: #### C BC #### [facility] [address] [place] [address] Dr. Moris Winter WBC 7.5 103/ul Normal 4.0-11.0 [facility] Comment on above: Performed By: #### C BC #### [facility] [address] [place] [address] ABD/PELV W CONon [...] NANCI COULTER Date: 2022-06-03 02:19 Normal [facility] ER URINE PROFILEon 3 Bilirubin Ql (U) Negative Normal NEGATIVE [facility] Comment on above: Performed By: #### C BC #### [facility] [address] [place] [address] Dr. Moris Winter Clarity (U) CLEAR Normal CLEAR [facility] Comment on above: Performed By: #### C BC #### [facility] [address] [place] [address] Dr. Moris Winter Color (U) LT. YELLOW Normal YELLOW [facility] Comment on above: Performed By: #### C BC #### [facility] [address] [place] [address] Dr. Moris PROCTOR A micrscopic examina tion will be performed if indicated. Normal [facility] Comment on above: Performed By: #### C BC #### [facility] [address] [place] [address] Dr. Moris Winter Glucose Ql (U) Negative Normal NEGATIVE [facility] Comment on above: Performed By: #### C BC #### [facility] [address] [place] [address] Dr. Moris Winter Hemoglobin Ql (U) Negative Normal NEGATIVE [facility] Comment on above: Performed By: #### C BC #### [facility] [address] [place] [address] Dr. Moris Winter Ketones Ql (U) Negative Normal NEGATIVE [facility] Comment on above: Performed By: #### C BC #### [facility] [address] [place] [address] Dr. Moris Winter LEUKOCYTES Negative Normal NEGATIVE [facility] Comment on above: Performed By: #### C BC #### [facility] [address] [place] [address] Dr. Moris Winter Nitrite Ql (U) Negative Normal NEGATIVE [facility] Comment on above: Performed By: #### C BC #### [facility] [address] [place] [address] Dr. Moris Winter pH (U) 7.0 [pH] Normal 5-9 [facility] Comment on above: Performed By: #### C BC #### [facility] [address] [place] [address] Dr. Moris Winter SPEC GRAVITY 1.015 Normal 1.005-<=1. 025 [facility] Comment on above: Performed By: #### C BC #### [facility] [address] [place] [address] Dr. Moris Winter UA PROTEIN Negative Normal NEGATIVE/ TRACE [facility] Comment on above: Performed By: #### C BC #### [facility] [address] [place] [address] Dr. Moris Winter UR MICRO IND NOT INDICATED Normal [facility] Comment on above: Performed By: #### C BC #### [facility] [address] [place] [address] Dr. Moris Winter Urobilinogen Qn (U) 1.0 {Marcin'U}/dL Normal 0.2 - 1. 0 [facility] Comment on above: Performed By: #### C BC #### [facility] [address] [place] [address] Dr. Moris Winter LACTATE/LACTIC ACIDon 2022 Lactate [Moles/Vol] 1.0 mmol/L Normal 0.4-2.0 [facility] Comment on above: Performed By: #### L ACT #### [facility] [address] [place] [address] Dr. Moris Winter LIPASEon 06-03-2022 Lipase [Catalytic activity/Vol] 112.0 U/L Normal 73.0-393.0 [facility] Comment on above: Performed By: #### L IPA, CMP, KIM #### [facility] [address] [place] [address] Dr. Moris Winter URon 06-03-2022 , QUAL Negative Normal NEGATIVE [facility] Comment on above: Performed By: #### P REGU #### [facility] [address] [place] [address] Dr. Moris Winter PROF 14(COMP METB)on 023 Albumin [Mass/Vol] 2.9 g/dL Critically low 3.4-5.0 [facility] Comment on above: Performed By: #### L IPA, CMP, KIM #### [facility] [address] [place] [address] Dr. Moris Winter Albumin/Globulin [Mass ratio] 0.6 {ratio} Normal [facility] Comment on above: Performed By: #### L IPA, CMP, KIM #### [facility] [address] [place] [address] Dr. Moris Winter ALP [Catalytic activity/Vol] 86 U/L Normal 46-116 [facility] Comment on above: Performed By: #### L IPA, CMP, KIM #### [facility] [address] [place] [address] Dr. Moris Winter ALT [Catalytic activity/Vol] 14 U/L Normal 14-59 [facility] Comment on above: Performed By: #### L IPA, CMP, KIM #### [facility] [address] [place] [address] Dr. Moris Winter Anion gap [Moles/Vol] 10.9 mmol/L Normal [facility] Comment on above: Performed By: #### L IPA, CMP, KIM #### [facility] [address] [address] [address] Moris Winter AST [Catalytic activity/Vol] 12 U/L Critically low 15-37 [facility] Comment on above: Performed By: #### L IPA, CMP, KIM #### [facility] [address] [address] [address] Moris Winter Bilirubin [Mass/Vol] 0.2 mg/dL Normal 0.2-1.0 [facility] Comment on above: Performed By: #### L IPA, CMP, KIM #### [facility] [address] [place] [address] Dr. Moris Winter Calcium [Mass/Vol] 9.0 mg/dL Normal 8.5-10.1 [facility] Comment on above: Performed By: #### L IPA, CMP, KIM #### [facility] [address] [place] [address] Dr. Moris Winter Chloride [Moles/Vol] 102 mmol/L Normal 98-107 [facility] Comment on above: Performed By: #### L IPA, CMP, KIM #### [facility] [address] [place] [address] Dr. Moris Winter CO2 [Moles/Vol] 29.6 mmol/L Normal 21.0-32.0 [facility] Comment on above: Performed By: #### L IPA, CMP, KIM #### [facility] [address] [place] [address] Dr. Moris Winter Creatinine [Mass/Vol] 0.73 mg/dL Normal 0.55-1.02 [facility] Comment on above: Performed By: #### L IPA, CMP, KIM #### [facility] [address] [address] [address] Moris Winter EGFR-AF MALAWIAN >60 Normal >=60 [facility] Comment on above: Performed By: #### L IPA, CMP, KIM #### [facility] [address] [address] [address] Moris Winter EGFR-NON AF MALAWIAN >60 Normal >=60 [facility] Comment on above: Performed By: #### L IPA, CMP, IKM #### [facility] [address] [address] [address] Moris Winter Globulin (S) [Mass/Vol] 4.8 g/dL Normal [facility] Comment on above: Performed By: #### L IPA, CMP, KIM #### [facility] [address] [place] [address] Dr. Moris Winter Glucose [Mass/Vol] 121 mg/dL Critically high 74-106 [facility] Comment on above: Performed By: #### L IPA, CMP, KIM #### [facility] [address] [place] [address] Dr. Moris Winter Potassium [Moles/Vol] 3.5 mmol/L Normal 3.5-5.1 [facility] Comment on above: Performed By: #### L IPA, CMP, KIM #### [facility] [address] [place] [address] Dr. Moris Winter Protein [Mass/Vol] 7.7 g/dL Normal 6.4-8.2 [facility] Comment on above: Performed By: #### L IPA, CMP, KIM #### [facility] [address] [place] [address] Dr. Moris Winter Sodium [Moles/Vol] 139 mmol/L Normal 136-145 [facility] Comment on above: Performed By: #### L IPA, CMP, KIM #### [facility] [address] [place] [address] Dr. Moris Winter Urea nitrogen [Mass/Vol] 11.0 mg/dL Normal 7.0-18.0 [facility] Comment on above: Performed By: #### L IPA, CMP, KIM #### [facility] [address] [place] [address] Dr. Moris Winter Urea nitrogen/Creatinine [Mass ratio] 15.1 mg/mg Normal [facility] Comment on above: Performed By: #### L IPA, CMP, KIM #### [facility] [address] [address] [address] Moris Winter Alanine aminotransferase [En zymatic activity/volume] in Serum or PlasmaOrdered By: Nataly Toure on 05-28-2022 ALT [Catalytic activity/Vol] 10 U/L 7-52 [facility] Albumin [Mass/volume] in Ser um or Plasma by Bromocresol green (BCG) dye binding methoOrdered By: Nataly Toure on 05-28-2022 Albumin BCG dye [Mass/Vol] 3.9 g/dL 3.5-5.7 [facility] Alkaline phosphatase [Enzyma tic activity/volume] in Serum or PlasmaOrdered By: Nataly Toure on 05-28-2022 ALP [Catalytic activity/Vol] 87 U/L 34-104 [facility] Aspartate aminotransferase [ Enzymatic activity/volume] in Serum or PlasmaOrdered By: Nataly Toure on 05-28-2022 AST [Catalytic activity/Vol] 11 U/L 13-39 [facility] Basophils Auto (Bld) [#/Vol] Ordered By: Nataly Toure on 05-28-2022 Basophils (Bld) [#/Vol] 0.0 10*3/uL 0.0-0.2 [facility] Basophils/100 WBC Auto (Bld) Ordered By: Nataly Jerniganc on 05-28-2022 Basophils/100 WBC (Bld) 0.6 % . [facility] Bilirubin.total [Mass/volume ] in Serum or PlasmaOrdered By: Nataly Toure on 05-28-2022 Bilirubin [Mass/Vol] 0.4 mg/dL 0.3-1.0 [facility] Calcium [Mass/volume] in Ser um or PlasmaOrdered By: Nataly Toure on 05-28-2022 Calcium [Mass/Vol] 9.1 mg/dL 8.6-10.3 [facility] Carbon dioxide, total [Moles /volume] in Serum or PlasmaOrdered By: Nataly Jerniganc on 05-28-2022 CO2 [Moles/Vol] 27.6 mmol/L 21.0-31.0 [facility] Chloride [Moles/volume] in S rosa or PlasmaOrdered By: Nataly Toure on 05-28-2022 Chloride [Moles/Vol] 102 mmol/L 98-107 [facility] Cholesterol [Mass/volume] in Serum or PlasmaOrdered By: Nataly Toure on 05-28-2022 Cholesterol [Mass/Vol] 269 mg/dL 140-200 [facility] Comment on above: Chol less than 200 m g/dl low riskChol 201-239 mg/dl borderline riskChol 240 mg/dl and greater high risk Cholesterol in LDL Calc [Mas s/Vol]Ordered By: Nataly Toure on 05-28-2022 Cholesterol in LDL [Mass/Vol] TNP [facility] Comment on above: Test not performed Cholesterol in LDL [Mass/vol ume] in Serum or PlasmaOrdered By: Nataly Toure on 05-28-2022 Cholesterol in LDL [Mass/Vol] 82 mg/dL 0-100 [facility] Comment on above: LDL ATP III CLASSIFI CATIONLDL less than 100 mg/dL OptimalLDL 100-129 mg/dL Near or above optimalLDL 130-159 mg/dL Borderline highLDL 160-189 mg/dL HighLDL greater than 189 mg/dL Very high Cholesterol in VLDL Calc [Ma ss/Vol]Ordered By: Nataly Toure on 05-28-2022 Cholesterol in VLDL [Mass/Vol] 187 mg/dL [facility] Creatinine [Mass/volume] in Serum or PlasmaOrdered By: Nataly Toure on 05-28-2022 Creatinine [Mass/Vol] 0.68 mg/dL 0.60-1.20 [facility] Eosinophils Auto (Bld) [#/Vo l]Ordered By: Nataly Toure on 05-28-2022 Eosinophils (Bld) [#/Vol] 0.2 10*3/uL 0.0-0.45 [facility] Eosinophils/100 WBC Auto (Bl d)Ordered By: Nataly Toure on 05-28-2022 Eosinophils/100 WBC (Bld) 2.1 % . [facility] Erythrocyte distribution wid th Auto (RBC) [Ratio]Ordered By: Nataly Toure on 05-28-2022 Erythrocyte distribution width (RBC) [Ratio] 14.5 % 11.9-15.3 [facility] Free thyroxine indexOrdered By: Nataly Toure on 05-28-2022 Free T4 index Calc [Mass/Vol] 2.9 1.2-4.9 [facility] Globulin Calc (S) [Mass/Vol] Ordered By: Nataly Toure on 05-28-2022 Globulin (S) [Mass/Vol] 3.6 g/dL [facility] Glucose [Mass/volume] in Ser um or PlasmaOrdered By: Nataly Toure on 05-28-2022 Glucose [Mass/Vol] 95 mg/dL 70-100 [facility] Comment on above: ADA recommended refe rence rangeRandom Glucose Reference Range is dependent on time and content of last meal. Glucose of more than 200 mg/dL in a nonstressed, ambulatory subject supports the diagnosis of Diabetes Mellitus. Glucose mean value [Mass/vol ume] in Blood Estimated from glycated hemoglobinOrdered By: Nataly Toure on 05-28-2022 Average glucose Estimated from glycated hemoglobin (Bld) [Mass/Vol] 111 mg/dL [facility] Hematocrit Auto (Bld) [Volum e fraction]Ordered By: Nataly Toure on 05-28-2022 Hematocrit (Bld) [Volume fraction] 38.2 % 34.0-46.4 [facility] Hemoglobin A1c percentageOrd ered By: Naatly Toure on 05-28-2022 HbA1c (Bld) [Mass fraction] 5.5 % 4.3-5.6 [facility] Comment on above: Increased risk for d iabetes: 5.7 - 6.4diabetes: >6.4glycemic control for adults with diabetes: <7.0 Hemoglobin [Mass/volume] in BloodOrdered By: Nataly Toure on 05-28-2022 Hemoglobin (Bld) [Mass/Vol] 12.9 g/dL 11.8-15.4 [facility] Iron [Mass/volume] in Serum or PlasmaOrdered By: Nataly Toure on 05-28-2022 Iron [Mass/Vol] 30 ug/dL 50-212 [facility] Iron binding capacity [Mass/ volume] in Serum or PlasmaOrdered By: Nataly Toure on 05-28-2022 Iron binding capacity [Mass/Vol] 449 ug/dL 255-450 [facility] Iron saturation [Mass Fracti on] in Serum or PlasmaOrdered By: Nataly Toure on 05-28-2022 Iron saturation [Mass fraction] 6.7 % 20-50 [facility] Leukocytes [#/volume] correc kee for nucleated erythrocytes in Blood by Automated counOrdered By: Nataly Toure on 05-28-2022 WBC corrected for nucl RBC Auto (Bld) [#/Vol] 7.3 10*3/uL 3.8-11.6 [facility] Lymphocytes Auto (Bld) [#/Vo l]Ordered By: Nataly Toure on 05-28-2022 Lymphocytes (Bld) [#/Vol] 1.9 10*3/uL 1.00-4.8 [facility] Lymphocytes/100 WBC Auto (Bl d)Ordered By: Nataly oTure on 05-28-2022 Lymphocytes/100 WBC (Bld) 26.6 % . [facility] MCH Auto (RBC) [Entitic mass ]Ordered By: Nataly Toure on 05-28-2022 MCH (RBC) [Entitic mass] 26.9 pg 24.7-34.3 [facility] MCHC Auto (RBC) [Mass/Vol]Or dered By: Nataly Toure on 05-28-2022 MCHC (RBC) [Mass/Vol] 33.8 g/dL 32.0-35.0 [facility] MCV Auto (RBC) [Entitic vol] Ordered By: Nataly Toure on 05-28-2022 MCV (RBC) [Entitic vol] 79.6 fL 80-100 [facility] Monocytes Auto (Bld) [#/Vol] Ordered By: Nataly Toure on 05-28-2022 Monocytes (Bld) [#/Vol] 0.6 10*3/uL 0.0-0.8 [facility] Monocytes/100 WBC Auto (Bld) Ordered By: Nataly Toure on 05-28-2022 Monocytes/100 WBC (Bld) 7.7 % . [facility] Neutrophils Auto (Bld) [#/Vo l]Ordered By: Nataly Toure on 05-28-2022 Neutrophils (Bld) [#/Vol] 4.6 10*3/uL 1.8-7.7 [facility] Neutrophils/100 WBC Auto (Bl d)Ordered By: Nataly Toure on 05-28-2022 Neutrophils/100 WBC (Bld) 63.0 % . [facility] No Panel InformationOrdered By: Nataly Toure on 05-28-2022 Estimated GFR (CKD-EPI) > 60.0 mL/Min [facility] Free Thyroxine (T4) Direct 10.8 ug/dL 4.5-12.0 [facility] Creatinine Clearance (Chem N/A [facility] Nucleated erythrocytes [Pres ence] in Blood by Automated countOrdered By: Nataly Toure on 05-28-2022 Nucleated RBC Auto Ql (Bld) 0.4 /100{WBC} 0-0.5 [facility] Platelet mean volume Auto (B ld) [Entitic vol]Ordered By: Nataly Toure on 05-28-2022 Platelet mean volume (Bld) [Entitic vol] 9.0 fL 6.3-10.7 [facility] Platelets Auto (Bld) [#/Vol] Ordered By: Nataly Toure on 05-28-2022 Platelets (Bld) [#/Vol] 247 10*3/uL 150-450 [facility] Potassium [Moles/volume] in Serum or PlasmaOrdered By: Nataly Toure on 05-28-2022 Potassium [Moles/Vol] 3.8 mmol/L 3.5-5.1 [facility] Protein [Mass/volume] in Ser um or PlasmaOrdered By: Nataly Toure on 05-28-2022 Protein [Mass/Vol] 7.5 g/dL 6.4-8.9 [facility] RBC Auto (Bld) [#/Vol]Ordere d By: Nataly Toure on 05-28-2022 RBC (Bld) [#/Vol] 4.80 10*6/uL 3.60-5.00 [facility] Serum or plasma albumin/glob ulin mass ratioOrdered By: Nataly Toure on 05-28-2022 Albumin/Globulin [Mass ratio] 1.1 {ratio} [facility] Serum or plasma anion gap de terminationOrdered By: Nataly Toure on 05-28-2022 Anion gap [Moles/Vol] 12.2 mmol/L 6.0-15.0 [facility] Serum or plasma high density lipoprotein (HDL) cholesterol measurementOrdered By: Nataly Toure on 05-28-2022 Cholesterol in HDL [Mass/Vol] 42 mg/dL 35-85 [facility] Comment on above: HDL CHOL ATP-III CLA SSIFICATION Cardiovascular RiskHDL > or equal to 60 mg/dL LOWHDL < 40 mg/dL HIGH Serum or plasma thyroperoxid ase antibody assay (units/volume)Ordered By: Nataly Toure on 05-28-2022 TPO Ab Qn [IU]/mL 0-34 [facility] Comment on above: Performed at: [employer] [address] [id number] Director: Sam oLpez PhD, Phone: [phone] Serum or plasma total choles terol/high density lipoprotein (HDL) cholesterol mass ratOrdered By: Nataly Toure on 05-28-2022 Cholesterol.total/Chol esterol in HDL [Mass ratio] 6.4 {ratio} <5.0 [facility] Sodium [Moles/volume] in Ser um or PlasmaOrdered By: Nataly Toure on 05-28-2022 Sodium [Moles/Vol] 138 mmol/L 136-145 [facility] TSH DL <= 0.005 mIU/L QnOrde red By: Nataly Toure on 05-28-2022 TSH Qn 2.330 m[IU]/L 0.450-4.50 0 [facility] Transferrin [Mass/volume] in Serum or PlasmaOrdered By: Nataly Toure on 05-28-2022 Transferrin [Mass/Vol] 321 mg/dL 203-362 [facility] Triglyceride [Mass/volume] i n Serum or PlasmaOrdered By: Nataly Toure on 05-28-2022 Triglyceride [Mass/Vol] 939 mg/dL 0-149 [facility] Comment on above: If the triglyceride [...] on 05-28-2022 T3 [Mass/Vol] 186 ng/dL 71-180 [facility] Triiodothyronine (T3) resin uptake testOrdered By: Nataly Toure on 05-28-2022 T3RU 27 % 24-39 [facility] Urea nitrogen [Mass/volume] in Serum or PlasmaOrdered By: Nataly Toure on 05-28-2022 Urea nitrogen [Mass/Vol] 11 mg/dL 7-25 [facility] WBC Auto (Bld) [#/Vol]Ordere d By: Nataly Toure on 05-28-2022 WBC (Bld) [#/Vol] 7.3 10*3/uL 3.8-11.6 [facility] XR LSPINE 2_3 VIEWSon 2022 XR LSPINE [...] PILI MIGUEL Date: 2022-03-15 22:49 Normal [facility] CBC AUTO DIFFon 03-15-2022 BASO # 0.0 103/ul Normal 0.0-0.1 [facility] Comment on above: Performed By: #### P REGU #### [facility] [address] [place] [address] Dr. Moris Winter Basophils/100 WBC (Bld) 0.1 % Critically low 0.2-2.0 [facility] Comment on above: Performed By: #### P REGU #### [facility] [address] [place] [address] Dr. Moris Winter EO # 0.1 103/ul Normal 0.0-0.7 [facility] Comment on above: Performed By: #### P REGU #### [facility] [address] [place] [address] Dr. Moris Winter Eosinophils/100 WBC (Bld) 0.8 % Critically low 0.9-7.0 [facility] Comment on above: Performed By: #### P REGU #### [facility] [address] [place] [address] Dr. Moris Winter Erythrocyte distribution width (RBC) [Ratio] 13.3 % Normal 11.0-15.0 [facility] Comment on above: Performed By: #### P REGU #### [facility] [address] [place] [address] Dr. Moris Winter Hematocrit (Bld) [Volume fraction] 37.4 % Normal 36.0-48.0 [facility] Comment on above: Performed By: #### P REGU #### [facility] [address] [place] [address] Dr. Moris Winter Hemoglobin (Bld) [Mass/Vol] 13.2 g/dL Normal 12.0-16.0 [facility] Comment on above: Performed By: #### P REGU #### [facility] [address] [place] [address] Dr. Moris Winter IG # 0.02 10e3/ul Normal 0.00-0.03 [facility] Comment on above: Performed By: #### P REGU #### [facility] [address] [place] [address] Dr. Moris Winter IG % 0.2 % Normal 0.0-0.5 [facility] Comment on above: Performed By: #### P REGU #### [facility] [address] [place] [address] Dr. Moris Winter LYMPH # 1.2 103/ul Normal 1.2-3.8 [facility] Comment on above: Performed By: #### P REGU #### [facility] [address] [place] [address] Dr. Moris Winter Lymphocytes/100 WBC (Bld) 14.6 % Critically low 20.5-60.0 [facility] Comment on above: Performed By: #### P REGU #### [facility] [address] [place] [address] Dr. Moris Winter MANUAL DIFF REQ NO Normal [facility] Comment on above: Performed By: #### P REGU #### [facility] [address] [place] [address] Dr. Moris Winter MCH (RBC) [Entitic mass] 27.3 pg Normal 26.7-34.0 [facility] Comment on above: Performed By: #### P REGU #### [facility] [address] [place] [address] Dr. Moris Winter MCHC (RBC) [Mass/Vol] 35.3 g/dL Critically high 29.9-35.2 [facility] Comment on above: Performed By: #### P REGU #### [facility] [address] [place] [address] Dr. Moris Winter MCV (RBC) [Entitic vol] 77.3 fL Critically low 81.0-99.0 [facility] Comment on above: Performed By: #### P REGU #### [facility] [address] [place] [address] Dr. Moris Winter MONO # 0.5 103/ul Normal 0.3-0.8 [facility] Comment on above: Performed By: #### P REGU #### [facility] [address] [place] [address] Dr. Moris Winter Monocytes/100 WBC (Bld) 5.4 % Normal 1.7-12.0 [facility] Comment on above: Performed By: #### P REGU #### [facility] [address] [place] [address] Dr. Moris Winter NEUT # 6.5 103/ul Normal 1.4-6.5 [facility] Comment on above: Performed By: #### P REGU #### [facility] [address] [place] [address] Dr. Moris Winetr Neutrophils/100 WBC (Bld) 78.9 % Critically high 43.0-75.0 [facility] Comment on above: Performed By: #### P REGU #### [facility] [address] [place] [address] Dr. Moris Winter Platelet mean volume (Bld) [Entitic vol] 10.1 fL Normal 9.5-13.5 [facility] Comment on above: Performed By: #### P REGU #### [facility] [address] [place] [address] Dr. Moris Winter PLT 256 103/ul Normal 150-450 [facility] Comment on above: Performed By: #### P REGU #### [facility] [address] [place] [address] Dr. Moris Winter RBC 4.84 106/ul Normal 4.20-5.40 [facility] Comment on above: Performed By: #### P REGU #### [facility] [address] [place] [address] Dr. Moris Winter WBC 8.3 103/ul Normal 4.0-11.0 [facility] Comment on above: Performed By: #### P REGU #### [facility] [address] [place] [address] Dr. Moris Winter CRPon 03-15-2022 CRP 3.3 mg/dL Critically high <=1.0 [facility] Comment on above: Performed By: #### B MP, CRP #### [facility] [address] [place] [address] Dr. Moris Winter URon 03-15-2022 , QUAL Negative Normal NEGATIVE [facility] Comment on above: Performed By: #### P REGU #### [facility] [address] [place] [address] Dr. Moris Winter PROF CHEM 8 (BAS METB)on Anion gap [Moles/Vol] 15.8 mmol/L Normal Th [facility] Comment on above: Performed By: #### B MP, CRP #### [facility] [address] [place] [address] Dr. Moris Winter Calcium [Mass/Vol] 8.6 mg/dL Normal 8.5-10.1 [facility] Comment on above: Performed By: #### B MP, CRP #### [facility] [address] [place] [address] Dr. Moris Winter Chloride [Moles/Vol] 98 mmol/L Normal 98-107 [facility] Comment on above: Performed By: #### B MP, CRP #### [facility] [address] [place] [address] Dr. Moris Winter CO2 [Moles/Vol] 26.7 mmol/L Normal 21.0-32.0 [facility] Comment on above: Performed By: #### B MP, CRP #### [facility] [address] [place] [address] Dr. Moris Winter Creatinine [Mass/Vol] 0.80 mg/dL Normal 0.55-1.02 [facility] Comment on above: Performed By: #### B MP, CRP #### [facility] [address] [place] [address] Dr. Moris Winter EGFR-AF MALAWIAN >60 Normal >=60 [facility] Comment on above: Performed By: #### B MP, CRP #### [facility] [address] [place] [address] Dr. Moris Winter EGFR-NON AF MALAWIAN >60 Normal >=60 [facility] Comment on above: Performed By: #### B MP, CRP #### [facility] [address] [place] [address] Dr. Moris Winter Glucose [Mass/Vol] 103 mg/dL Normal 74-106 [facility] Comment on above: Performed By: #### B MP, CRP #### [facility] [address] [address] [address] Moris Winter Potassium [Moles/Vol] 3.5 mmol/L Normal 3.5-5.1 [facility] Comment on above: Performed By: #### B MP, CRP #### [facility] [address] [place] [address] Dr. Moris Winter Sodium [Moles/Vol] 137 mmol/L Normal 136-145 [facility] Comment on above: Performed By: #### B MP, CRP #### [facility] [address] [place] [address] Dr. Moris Winter Urea nitrogen [Mass/Vol] 15.0 mg/dL Normal 7.0-18.0 [facility] Comment on above: Performed By: #### B MP, CRP #### [facility] [address] [place] [address] Dr. Moris Winter Urea nitrogen/Creatinine [Mass ratio] 18.8 mg/mg Normal [facility] Comment on above: Performed By: #### B MP, CRP #### [facility] [address] [place] [address] Dr. Moris Winter SED RATE [facility] 2022 SED RATE 51 mm/hr Critically high <=20 [facility] Comment on above: Performed By: #### P REGU #### [facility] [address] [place] [address] Dr. Moris Winter Amphetamine Screen Ql (U)Ord ered By: TELMA Smith on 10-18-2021 Amphetamines Ql (U) Negative Negative [facility] Automated erythrocytes count in urine sediment (number/area)Ordered By: TELMA Smith on 10-18-2021 RBC Auto (Urine sed) [#/Area] 1-2 [HPF] 0-4 [facility] Automated leukocytes count i n urine sediment (number/area)Ordered By: TELMA Smith on 10-18-2021 WBC Auto (Urine sed) [#/Area] 20-49 [HPF] 0-4 [facility] Barbiturates [Presence] in U rineOrdered By: TELMA Smith on 10-18-2021 Barbiturates Ql (U) Negative Negative [facility] Basophils Auto (Bld) [#/Vol] Ordered By: TELMA Smith on 10-18-2021 Basophils (Bld) [#/Vol] 0.0 10*3/uL 0.0-0.2 [facility] Basophils/100 WBC Auto (Bld) Ordered By: TELMA Smith on 10-18-2021 Basophils/100 WBC (Bld) 0.3 % . [facility] Benzodiazepines [Presence] i n UrineOrdered By: TELMA Smith on 10-18-2021 Benzodiazepines Ql (U) Negative Negative [facility] Bilirubin Test strip Ql (U)O rdered By: TELMA Smith on 10-18-2021 Bilirubin Ql (U) Negative Negative [facility] Blood hemoglobin measurement (mass/volume)Ordered By: TELMA Smith on 10-18-2021 Hemoglobin (Bld) [Mass/Vol] 11.3 g/dL 11.8-15.4 [facility] Blood leukocytes automated c ount (number/volume)Ordered By: TELMA Smith on 10-18-2021 WBC (Bld) [#/Vol] 10.1 10*3/uL 4.5-11.0 [facility] COVID-19 SOFIAOrdered By: MD DESEAN Smith on 10-18-2021 SARS-CoV+SARS-CoV-2 (COVID-19) Ag IA.rapid Ql (Resp) Negative Negative [facility] Comment on above: This is a duplicate [place] SARS Antigen (AUTUMN) result to be used for statistical tracking purpose only. Color Auto (U)Ordered By: MD DESEAN Smith on 10-18-2021 Color (U) Yellow Yellow [facility] Eosinophils Auto (Bld) [#/Vo l]Ordered By: TELMA Smith on 10-18-2021 Eosinophils (Bld) [#/Vol] 0.1 10*3/uL 0.0-0.45 [facility] Eosinophils/100 WBC Auto (Bl d)Ordered By: TELMA Smith on 10-18-2021 Eosinophils/100 WBC (Bld) 1.3 % . [facility] Erythrocyte distribution wid th Auto (RBC) [Ratio]Ordered By: TELMA Smith on 10-18-2021 Erythrocyte distribution width (RBC) [Ratio] 15.6 % 11.9-15.3 [facility] Hematocrit Auto (Bld) [Volum e fraction]Ordered By: TELMA Smith on 10-18-2021 Hematocrit (Bld) [Volume fraction] 34.9 % 34.0-46.4 [facility] Ketones Auto test strip (U) [Mass/Vol]Ordered By: TELMA Smith on 10-18-2021 Ketones (U) [Mass/Vol] Trace [facility] Ordered By: TELMA Smith on 10-18-2021 Opiates Ql (U) Negative Negative [facility] - Hematology and Cell countsOrdered By: TELMA Smith on 10-18-2021 Nucleated RBC/100 WBC (Bld) [Ratio] 0.1 % 0-0.5 [facility] - UrinalysisOrder ed By: TELMA Smith on 10-18-2021 Hyaline casts LM Ql (Urine sed) 9-19 [LPF] 0-8 [facility] Lymphocytes Auto (Bld) [#/Vo l]Ordered By: TELMA Smith on 10-18-2021 Lymphocytes (Bld) [#/Vol] 1.7 10*3/uL 1.00-4.8 [facility] Lymphocytes/100 WBC Auto (Bl d)Ordered By: TELMA Smith on 10-18-2021 Lymphocytes/100 WBC (Bld) 17.0 % . [facility] MCH Auto (RBC) [Entitic mass ]Ordered By: TELMA Smith on 10-18-2021 MCH (RBC) [Entitic mass] 25.9 pg 24.7-34.3 [facility] MCHC Auto (RBC) [Mass/Vol]Or dered By: TELMA Smith on 10-18-2021 MCHC (RBC) [Mass/Vol] 32.5 g/dL 32.0-35.0 [facility] MCV Auto (RBC) [Entitic vol] Ordered By: TELMA Smith on 10-18-2021 MCV (RBC) [Entitic vol] 79.6 fL 80-100 [facility] Monocytes Auto (Bld) [#/Vol] Ordered By: TELMA Smith on 10-18-2021 Monocytes (Bld) [#/Vol] 0.8 10*3/uL 0.0-0.8 [facility] Monocytes/100 WBC Auto (Bld) Ordered By: TELMA Smith on 10-18-2021 Monocytes/100 WBC (Bld) 8.1 % . [facility] Neutrophils Auto (Bld) [#/Vo l]Ordered By: TELMA Smith on 10-18-2021 Neutrophils (Bld) [#/Vol] 7.4 10*3/uL 1.8-7.7 [facility] Neutrophils/100 WBC Auto (Bl d)Ordered By: TELMA Smith on 10-18-2021 Neutrophils/100 WBC (Bld) 73.3 % . [facility] Nitrite Test strip Ql (U)Ord ered By: TELMA Smith on 10-18-2021 Nitrite Ql (U) Negative Negative [facility] No Panel InformationOrdered By: TELMA Smith on 10-18-2021 SARS Antigen (LFIA) [facility] Phencyclidine Screen Ql (U)O rdered By: TELMA Smith on 10-18-2021 Phencyclidine Ql (U) Negative Negative [facility] Comment on above: These are unconfirme d results and should not be used for legal purposes. Drug Cut-Off Concentration: AMPH 1000 ng/mL FAVIOLA 200 ng/mL THA 200 ng/mL COCM 300 ng/mL OP 300 ng/mL PCP 25 ng/mL Platelet mean volume Auto (B ld) [Entitic vol]Ordered By: TELMA Smith on 10-18-2021 Platelet mean volume (Bld) [Entitic vol] 9.7 fL 6.3-10.7 [facility] Platelets Auto (Bld) [#/Vol] Ordered By: TELMA Smith on 10-18-2021 Platelets (Bld) [#/Vol] 190 10*3/uL 150-450 [facility] Protein Auto test strip (U) [Mass/Vol]Ordered By: TELMA Smith on 10-18-2021 Protein (U) [Mass/Vol] Trace mg/dL Negative [facility] RBC Auto (Bld) [#/Vol]Ordere d By: TELMA Smith on 10-18-2021 RBC (Bld) [#/Vol] 4.38 10*6/uL 3.60-5.00 [facility] S. agalactiae Org specific c x Ql (Unsp spec)Ordered By: Radha Molina on 10-18-2021 Group B Streptococcus Culture Strep. agalactiae Grp B [facility] Specific gravity Auto test s trip (U) [Rel density]Ordered By: TELMA Smith on 10-18-2021 Specific gravity (U) [Rel density] 1.020 1.001-1.03 0 [facility] Squamous epithelial cells de tection in urine sediment by light microscopyOrdered By: TELMA Smith on 10-18-2021 Epithelial cells.squamous LM Ql (Urine sed) 5-9 [HPF] 0-2 [facility] Urine bacteria detection by automated methodOrdered By: TELMA Smith on 10-18-2021 Bacteria Auto Ql (U) 1+ None Seen [facility] Urine clarity by refractomet ry automatedOrdered By: TELMA Smith on 10-18-2021 Clarity Refractometry automated (U) Cloudy Clear [facility] Urine cocaine detectionOrder ed By: TELMA Smith on 10-18-2021 Cocaine Ql (U) Negative Negative [facility] Urine glucose measurement by automated test strip (mass/volume)Ordered By: SHELLIE Smith on 10-18-2021 Glucose Auto test strip (U) [Mass/Vol] Normal mg/dL Normal [facility] Urine hemoglobin detection b y automated test stripOrdered By: ETLMA Smith on 10-18-2021 Hemoglobin Auto test strip Ql (U) Negative Negative [facility] Urine leukocyte esterase det ection by automated test stripOrdered By: TELMA Smith on 10-18-2021 Leukocyte esterase Auto test strip Ql (U) 3+ Negative [facility] Urobilinogen Auto test strip (U) [Mass/Vol]Ordered By: TELMA Smith on 10-18-2021 Urobilinogen (U) [Mass/Vol] Normal mg/dL Normal [facility] pH Auto test strip (U)Ordere d By: TLEMA Smith on 10-18-2021 pH (U) 6.5 [pH] 5.0-9.0 [facility] UA (CLEAN/CATCH) HEMP FIBER TAKER OFF/MICRO I F IND.on 08-31-2021 Bilirubin Ql (U) Negative Normal NEGATIVE [facility] Comment on above: Performed By: #### U ACSIND, ICRO #### [facility] [address] [address] [address] Moris Winter Clarity (U) SL CLOUDY Abnormal CLEAR [facility] Comment on above: Performed By: #### U ACSIND, UMICRO #### [facility] [address] [address] [address] Moris Winter Color (U) LT. YELLOW Normal YELLOW [facility] Comment on above: Performed By: #### U ACSIND, UMICRO #### [facility] [address] [address] [address] Moris Winter Glucose Ql (U) Negative Normal NEGATIVE [facility] Comment on above: Performed By: #### U ACSIND, UMICRO #### [facility] [address] [address] [address] Moris Winter Hemoglobin Ql (U) TRACE-INTACT Abnormal NEGATIVE [facility] Comment on above: Performed By: #### U ACSIND, UMICRO #### [facility] [address] [address] [address] Moris Winter Ketones Ql (U) Negative Normal NEGATIVE [facility] Comment on above: Performed By: #### U ACSIND, UMICRO #### [facility] [address] [address] [address] Moris Winter LEUKOCYTES TRACE Abnormal NEGATIVE [facility] Comment on above: Performed By: #### U ACSIND, UMICRO #### [facility] [address] [place] [address] Dr. Moris Winter Nitrite Ql (U) Negative Normal NEGATIVE [facility] Comment on above: Performed By: #### U ACSNARENDRA UMICRO #### [facility] [address] [place] [address] Dr. Moris Winter pH (U) 7.0 [pH] Normal 5-9 [facility] Comment on above: Performed By: #### U ACSNARENDRA UMICRO #### [facility] [address] [place] [address] Dr. Moris Winter SPEC GRAVITY 1.010 Normal 1.005-<=1. 025 [facility] Comment on above: Performed By: #### U ACSNARENDRA UMICRO #### [facility] [address] [place] [address] Dr. Moris Winter UA PROTEIN Negative Normal NEGATIVE/ TRACE [facility] Comment on above: Performed By: #### U ACSNARENDRA UMICRO #### [facility] [address] [place] [address] Dr. Moris Winter UR MICRO IND INDICATED Normal [facility] Comment on above: Performed By: #### U ACSNARENDRA, UMICRO #### [facility] [address] [address] [address] Moris Winter Urobilinogen Qn (U) 0.2 {Marcin'U}/dL Normal 0.2 - 1. 0 [facility] Comment on above: Performed By: #### U ACSNARENDRA, UMICRO #### [facility] [address] [place] [address] Dr. Moris Winter URINE MICROSCOPIC ONLYon BACTERIA NONE SEEN Normal NONE SEEN [facility] Comment on above: Performed By: #### U ACSIND, UMICRO #### [facility] [address] [place] [address] Dr. Moris Winter Bacteria identified Cx Nom (U) NOT INDICATED Normal [facility] Comment on above: Performed By: #### U ACSIND, UMICRO #### [facility] [address] [place] [address] Dr. Moris Winter CAST NONE SEEN Normal NONE SEEN [facility] Comment on above: Performed By: #### U ACSIND, UMICRO #### [facility] [address] [place] [address] Dr. Moris Winter Crystals LM Nom (Urine sed) NONE SEEN Normal NONE SEEN [facility] Comment on above: Performed By: #### U ACSIND, UMICRO #### [facility] [address] [place] [address] Dr. Moris Winter Epithelial cells LM Ql (Urine sed) MODERATE Abnormal NONE SEEN /RARE [facility] Comment on above: Performed By: #### U ACSIND, UMICRO #### [facility] [address] [place] [address] Dr. Moris Winter MUCOUS NONE SEEN Normal NONE SEEN [facility] Comment on above: Performed By: #### U ACSIND, UMICRO #### [facility] [address] [place] [address] Dr. Moris Winter RBC 0-2 Normal 0-2 [facility] Comment on above: Performed By: #### U ACSIND, UMICRO #### [facility] [address] [place] [address] Dr. Moris Winter WBC 0-2 Abnormal NONE SEEN [facility] Comment on above: Performed By: #### U ACSIND, UMICRO #### [facility] [address] [place] [address] Dr. Moris Winter Covid-19 PCR (CVDTB)on 07-17 SARS-CoV-2 (COVID-19) RNA SVETLANA+probe Ql (Unsp spec) Detected Critically abnormal NOT DETECTED [facility] Comment on above: Result Comment: This test is not yet approved or cleared by the [place] FDA. When there are no FDA-approved or cleared tests available, and other criteria are met, FDA can make tests available under an emergency access mechanism called an Emergency Use Authorization (EUA). The EUA for this test is supported by the [employer] of Health and Human Service's declaration that [...] used). Performed By: #### P REGU #### [facility] [address] [place] [address] Dr. Moris Winter INFLUENZA A AND B [facility] 08-08 [facility] SEE BELOW Normal [facility] Comment on above: Result Comment: Nega tive for Flu A protein angiten. Infection due to Flu A cannot be ruled out. Flu A angiten in the sample may be below the detection limit of the test. Performed By: #### P REGU #### [facility] [address] [place] [address] Dr. Mor[facility] Normal [facility] Comment on above: Result Comment: Nega tive for Flu B protein antigen. Infection due to Flu B cannot be ruled out. Flu B antigen in the sample may be below the detection limit of the test. Performed By: #### P REGU #### [facility] [address] [place] [address] Dr. Moris Winter INFLUENZA A AG Negative Normal NEGATIVE SEE COMMENT [facility] Comment on above: Performed By: #### P REGU #### [facility] [address] [place] [address] Dr. Moris Winter INFLUENZA B AG Negative Normal NEGATIVE SEE COMMENT [facility] Comment on above: Performed By: #### P REGU #### [facility] [address] [place] [address] Dr. Moris Winter INTERNAL CONTROLS Within Normal Limits Normal Wi thin Normal Limits [facility] Comment on above: Performed By: #### P REGU #### [facility] [address] [address] [address] Moris Winter Serum or plasma beta choriog onadotropin measurement (units/volume)Ordered By: Radha Molina on 07-21-2021 [place] [address].00 m[IU]/mL [facility] Comment on above: Approximate Approxim ate hCG Gestational Age Range (mIU/ml) (weeks) 0.2-1 5-50 1-2 50-500 2-3 100-5,000 3-4 500-10,000 4-5 1,000-50,000 5-6 10,000-100,000 6-8 15,000-200,000 8-12 10,000-100,000 Operative Reporton 9 Operative Report MR#: [id number] [facility] Pt. Name: Rosette Alba Room #: [...] placed Adaptic under the skin using a Pioneer and tied this down with a 5-0 [...] P/Andie Carballo MD Date Trans: 08/03/2018 08:27 P/mmo [id number] cc: Soraya Romo [address] [place] [id number] Normal [facility] POC GLUCOSE LABon 08-03-2018 Glucose [Mass/Vol] 105 mg/dL High 70-100 [facility] Comment on above: Performed By: #### [id number] #### [facility] [address] [facility]. [place], [place] [id number] [place] [address] POC URINE PREGNANCYon 2018 Beta HCG ( test) Ql (U) Negative Normal NEGATIVE [facility] Comment on above: Result Comment: Perf ormed in PACU Performed By: #### [id number] #### [facility] [address] [facility]. [address] Vital Signs Date Time Vital Sign Value Performing Clinician Facility 04-13-2024 11:56-0500 Body height 160 cm Ni Carroll MD Work Phone: [facility] 04-13-2024 11:56-0500 Body mass index (BMI) [Ratio] 40.19 kg/m2 Ni Carroll MD Work Phone: [facility] 04-13-2024 11:56-0500 Body weight 102.88 kg Ni Carroll MD Work Phone: [facility] 04-13-2024 11:56-0500 Diastolic blood pressure 64 mm[Hg] Ni Carroll MD Work Phone: [facility] 04-13-2024 11:56-0500 Heart rate 98 /min Ni Carroll MD Work Phone: [facility] 04-13-2024 11:56-0500 Systolic blood pressure 116 mm[Hg] Ni Carroll MD Work Phone: [facility] 04-06-2024 11:45-0500 Body mass index (BMI) [Ratio] 40.46 kg/m2 Kim Iraida PA Work Phone: [facility] 04-06-2024 11:45-0500 Body weight 103.6 kg Kim Armstrongey PA Work Phone: [facility] 04-06-2024 11:45-0500 Diastolic blood pressure 70 mm[Hg] Kim Armstrongey PA Work Phone: [facility] 04-06-2024 11:45-0500 Systolic blood pressure 114 mm[Hg] Kim Khoury PA Work Phone: [facility] 03-09-2024 10:38-0500 Body mass index (BMI) [Ratio] 39.17 kg/m2 Camacho Mary DO Work Phone: [facility] 03-09-2024 10:38-0500 Body weight 100.31 kg Camacho Mary DO Work Phone: [facility] 03-09-2024 10:38-0500 Diastolic blood pressure 60 mm[Hg] Camacho Mary DO Work Phone: [facility] 03-09-2024 10:38-0500 Systolic blood pressure 116 mm[Hg] Camacho Mary DO Work Phone: [facility] 10-20-2023 08:28-0400 Body height 160.02 cm LIVING MANAGER-C Nataly Spasic Work Phone: [facility] 10-20-2023 08:28-0400 Body mass index (BMI) [Ratio] 38 kg/m2 LIVING MANAGER-C Nataly Spasic Work Phone: [facility] 10-20-2023 08:28-0400 Body temperature 97.7 [degF] LIVING MANAGER-C Nataly Spasic Work Phone: [facility] 10-20-2023 08:28-0400 Body weight 97.52 kg LIVING MANAGER-C Nataly Spasic Work Phone: [facility] 10-20-2023 08:28-0400 Diastolic blood pressure 74 mm[Hg] LIVING MANAGER-C Nataly Spasic Work Phone: [facility] 10-20-2023 08:28-0400 Heart rate 75 /min LIVING MANAGER-C Nataly Spasic Work Phone: [facility] 10-20-2023 08:28-0400 Respiratory rate 18 /min LIVING MANAGER-C Nataly Spasic Work Phone: [facility] 10-20-2023 08:28-0400 SaO2% (BldA) [Mass fraction] 99 % LIVING MANAGER-C Nataly Spasic Work Phone: [facility] 10-20-2023 08:28-0400 Systolic blood pressure 107 mm[Hg] LIVING MANAGER-C Nataly Spasic Work Phone: [facility] 10-04-2023 22:40-0400 Body height 160.02 cm LIVING MANAGER-C Nataly Spasic Work Phone: [facility] 10-04-2023 22:40-0400 Body temperature 97.7 [degF] LIVING MANAGER-C Nataly Spasic Work Phone: [facility] 10-04-2023 22:40-0400 Body weight 95.5 kg LIVING MANAGER-C Nataly Spasic Work Phone: [facility] 10-04-2023 22:40-0400 Diastolic blood pressure 75 mm[Hg] LIVING MANAGER-C Nataly Spasic Work Phone: [facility] 10-04-2023 22:40-0400 Heart rate 95 /min LIVING MANAGER-C Nataly Spasic Work Phone: [facility] 10-04-2023 22:40-0400 Respiratory rate 16 /min LIVING MANAGER-C Nataly Spasic Work Phone: [facility] 10-04-2023 22:40-0400 SaO2% (BldA) [Mass fraction] 98 % LIVING MANAGER-C Nataly Spasic Work Phone: [facility] 10-04-2023 22:40-0400 Systolic blood pressure 132 mm[Hg] LIVING MANAGER-C Nataly Spasic Work Phone: [facility] 09-26-2023 21:36-0400 Body temperature 98.1 [degF] LIVING MANAGER-C Nataly Spasic Work Phone: [facility] 09-26-2023 21:36-0400 Diastolic blood pressure 74 mm[Hg] LIVING MANAGER-C Nataly Spasic Work Phone: [facility] 09-26-2023 21:36-0400 Heart rate 90 /min LIVING MANAGER-C Nataly Spasic Work Phone: [facility] 09-26-2023 21:36-0400 Respiratory rate 16 /min LIVING MANAGER-C Nataly Spasic Work Phone: [facility] 09-26-2023 21:36-0400 SaO2% (BldA) [Mass fraction] 99 % LIVING MANAGER-C Nataly Spasic Work Phone: [facility] 09-26-2023 21:36-0400 Systolic blood pressure 145 mm[Hg] LIVING MANAGER-C Nataly Spasic Work Phone: [facility] 09-26-2023 21:35-0400 Body height 160.02 cm LIVING MANAGER-C Nataly Spasic Work Phone: [facility] 09-26-2023 21:35-0400 Body weight 96.7 kg LIVING MANAGER-C Nataly Spasic Work Phone: [facility] 08-20-2023 23:05-0400 Body height 160.02 cm LIVING MANAGER-C Nataly Spasic Work Phone: [facility] 08-20-2023 23:05-0400 Body temperature 98.3 [degF] LIVING MANAGER-C Nataly Spasic Work Phone: [facility] 08-20-2023 23:05-0400 Body weight 97.5 kg LIVING MANAGER-C Nataly Spasic Work Phone: [facility] 08-20-2023 23:05-0400 Diastolic blood pressure 66 mm[Hg] LIVING MANAGER-C Nataly Spasic Work Phone: [facility] 08-20-2023 23:05-0400 Heart rate 90 /min LIVING MANAGER-C Nataly Spasic Work Phone: [facility] 08-20-2023 23:05-0400 Respiratory rate 20 /min LIVING MANAGER-C Nataly Spasic Work Phone: [facility] 08-20-2023 23:05-0400 SaO2% (BldA) [Mass fraction] 99 % LIVING MANAGER-C Nataly Spasic Work Phone: [facility] 08-20-2023 23:05-0400 Systolic blood pressure 136 mm[Hg] LIVING MANAGER-C Nataly Spasic Work Phone: [facility] 02-13-2023 21:40-0500 Body temperature 97.7 [degF] LIVING MANAGER-C Nataly Spasic Work Phone: [facility] 02-13-2023 21:40-0500 Diastolic blood pressure 87 mm[Hg] LIVING MANAGER-C Nataly Spasic Work Phone: [facility] 02-13-2023 21:40-0500 Heart rate 100 /min LIVING MANAGER-C Nataly Spasic Work Phone: [facility] 02-13-2023 21:40-0500 Respiratory rate 18 /min LIVING MANAGER-C Nataly Spasic Work Phone: [facility] 02-13-2023 21:40-0500 SaO2% (BldA) [Mass fraction] 96 % LIVING MANAGER-C Nataly Spasic Work Phone: [facility] 02-13-2023 21:40-0500 Systolic blood pressure 140 mm[Hg] LIVING MANAGER-C Nataly Spasic Work Phone: [facility] 02-13-2023 11:10-0500 Body height 160.02 cm LIVING MANAGER-C Nataly Spasic Work Phone: [facility] 02-13-2023 11:10-0500 Body weight 99.79 kg LIVING MANAGER-C Nataly Spasic Work Phone: [facility] 02-01-2023 19:30-0500 Body temperature 97.3 [degF] LIVING MANAGER-C Nataly Spasic Work Phone: [facility] 02-01-2023 19:30-0500 Diastolic blood pressure 75 mm[Hg] LIVING MANAGER-C Nataly Spasic Work Phone: [facility] 02-01-2023 19:30-0500 Heart rate 94 /min LIVING MANAGER-C Nataly Spasic Work Phone: [facility] 02-01-2023 19:30-0500 Respiratory rate 14 /min LIVING MANAGER-C Nataly Spasic Work Phone: [facility] 02-01-2023 19:30-0500 SaO2% (BldA) [Mass fraction] 98 % LIVING MANAGER-C Nataly Spasic Work Phone: [facility] 02-01-2023 19:30-0500 Systolic blood pressure 123 mm[Hg] LIVING MANAGER-C Nataly Spasic Work Phone: [facility] 01-31-2023 09:00-0500 Body temperature 98 [degF] LIVING MANAGER-C Nataly Spasic Work Phone: [facility] 01-31-2023 09:00-0500 Respiratory rate 16 /min LIVING MANAGER-C Nataly Spasic Work Phone: [facility] 01-31-2023 08:46-0500 Diastolic blood pressure 57 mm[Hg] LIVING MANAGER-C Nataly Spasic Work Phone: [facility] 01-31-2023 08:46-0500 Heart rate 112 /min LIVING MANAGER-C Nataly Spasic Work Phone: [facility] 01-31-2023 08:46-0500 Systolic blood pressure 112 mm[Hg] LIVING MANAGER-C Nataly Spasic Work Phone: [facility] 01-31-2023 06:31-0500 SaO2% (BldA) [Mass fraction] 96 % LIVING MANAGER-C Nataly Spasic Work Phone: [facility] 01-31-2023 00:08-0500 Body height 160.02 cm LIVING MANAGER-C Nataly Spasic Work Phone: [facility] 01-31-2023 00:08-0500 Body weight 97.52 kg LIVING MANAGER-C Nataly Spasic Work Phone: [facility] 01-21-2023 09:56-0500 Body height 157.48 cm LIVING MANAGER-C Nataly Spasic Work Phone: [facility] 01-21-2023 09:56-0500 Body weight 81.64 kg LIVING MANAGER-C Nataly Spasic Work Phone: [facility] 12-01-2022 18:06-0400 Diastolic blood pressure 75 mm[Hg] LIVING MANAGER-C Nataly Spasic Work Phone: [facility] 12-01-2022 18:06-0400 Heart rate 109 /min LIVING MANAGER-C Nataly Spasic Work Phone: [facility] 12-01-2022 18:06-0400 Respiratory rate 17 /min LIVING MANAGER-C Nataly Spasic Work Phone: [facility] 12-01-2022 18:06-0400 SaO2% (BldA) [Mass fraction] 99 % LIVING MANAGER-C Nataly Spasic Work Phone: [facility] 12-01-2022 18:06-0400 Systolic blood pressure 123 mm[Hg] LIVING MANAGER-C Nataly Spasic Work Phone: [facility] 12-01-2022 14:32-0400 Body height 160.02 cm LIVING MANAGER-C Nataly Spasic Work Phone: [facility] 12-01-2022 14:32-0400 Body temperature 97.6 [degF] LIVING MANAGER-C Nataly Spasic Work Phone: [facility] 12-01-2022 14:32-0400 Body weight 101.2 kg LIVING MANAGER-C Nataly Spasic Work Phone: [facility] 11-20-2022 19:00-0400 Respiratory rate 16 /min LIVING MANAGER-C Nataly Spasic Work Phone: [facility] 11-20-2022 18:14-0400 Diastolic blood pressure 65 mm[Hg] LIVING MANAGER-C Nataly Spasic Work Phone: [facility] 11-20-2022 18:14-0400 Heart rate 100 /min LIVING MANAGER-C Nataly Spasic Work Phone: [facility] 11-20-2022 18:14-0400 Systolic blood pressure 131 mm[Hg] LIVING MANAGER-C Nataly Spasic Work Phone: [facility] 11-20-2022 18:05-0400 SaO2% (BldA) [Mass fraction] 99 % LIVING MANAGER-C Nataly Spasic Work Phone: [facility] 11-20-2022 17:21-0400 Body height 160.02 cm LIVING MANAGER-C Nataly Spasic Work Phone: [facility] 11-20-2022 17:21-0400 Body weight 98.88 kg LIVING MANAGER-C Nataly Spasic Work Phone: [phone] [place] [address] 11-19-2022 13:49-0400 Respiratory rate 16 /min LIVING MANAGER-C Nataly Spasic Work Phone: [facility] 11-19-2022 13:30-0400 Body temperature 97.4 [degF] LIVING MANAGER-C Nataly Spasic Work Phone: [facility] 11-19-2022 12:53-0400 Diastolic blood pressure 71 mm[Hg] LIVING MANAGER-C Nataly Spasic Work Phone: [facility] 11-19-2022 12:53-0400 Heart rate 109 /min LIVING MANAGER-C Nataly Spasic Work Phone: [facility] 11-19-2022 12:53-0400 Systolic blood pressure 125 mm[Hg] LIVING MANAGER-C Nataly Spasic Work Phone: [facility] 11-19-2022 12:49-0400 SaO2% (BldA) [Mass fraction] 99 % LIVING MANAGER-C Nataly Spasic Work Phone: [facility] 11-19-2022 12:23-0400 Body height 160.02 cm LIVING MANAGER-C Nataly Spasic Work Phone: [facility] 11-19-2022 12:23-0400 Body weight 98.88 kg LIVING MANAGER-C Nataly Spasic Work Phone: [facility] 10-18-2021 05:08-0400 Diastolic blood pressure 58 mm[Hg] DO Obdulia Oneil Work Phone: [facility] 10-18-2021 05:08-0400 Heart rate 96 /min DO Obdulia Oneil Work Phone: [facility] 10-18-2021 05:08-0400 SaO2% (BldA) [Mass fraction] 98 % DO Obdulia Oneil Work Phone: [facility] 10-18-2021 05:08-0400 Systolic blood pressure 118 mm[Hg] DO Obdulia Oneil Work Phone: [facility] 10-18-2021 05:00-0400 Body temperature 98.3 [degF] DO Obdulia Oneil Work Phone: [facility] 10-18-2021 05:00-0400 Respiratory rate 16 /min DO Obdulia Oneil Work Phone: [facility] 10-18-2021 01:57-0400 Body weight 102.51 kg DO Obdulia Oneil Work Phone: [facility] 10-18-2021 01:31-0400 Body height 160.02 cm DO Obdulia Oneil Work Phone: [facility] Encounters Encounter Date Encounter Type Care Provider Facility Start: 04-13-2024 End: 04-13-2024 Orders Only Berenice Vyas RN [facility] Comment on above: History of lay tee, currently (Primary Dx) Start: 04-13-2024 End: 04-13-2024 Office consultation new/estab patient 60 min Ni Carroll MD Work Phone: [facility] Comment on above: delivery aft er section (Primary Dx) Start: 04-06-2024 End: 04-06-2024 Bamboo flowsheet Kim QUICK Work Phone: [facility] Start: 04-06-2024 End: 04-11-2024 Bamboo flowsheet Kim QUICK Work Phone: [facility] Start: 04-06-2024 End: 04-11-2024 Clinisync Result Encounter Kim QUICK Work Phone: [facility] Unsolicited Start: 04-06-2024 End: 04-07-2024 External Result Encounter Kim QUICK Work Phone: [facility] Unsolicited Start: 04-06-2024 End: 04-06-2024 Patient encounter procedure Kim QUICK Work Phone: [facility] Start: 04-06-2024 End: 04-06-2024 Periodic preventive med est patient 18-39 yrs Kim QUICK Work Phone: [facility] Comment on above: Second trimester pre gnancy (Primary Dx); 20 weeks gestation of ; STD exposure; Well woman exam with routine gynecological exam; Vaginal discharge; History of delivery, currently ; URI, acute Start: 04-06-2024 End: 04-06-2024 ambulatory KIM KHOURY Not Available Start: 03-17-2024 End: 03-20-2024 Chart abstracting Ni Carroll MD Work Phone: [facility] Start: 03-14-2024 End: 03-14-2024 Clinisync Result [...] Start: 11-03-2023 ambulatory Nataly E Spasic Facility :[facility] Start: 10-20-2023 Registered Recurring LIVING MANAGER-C Andrez a Spasic Work Phone: [facility] Work Phone: Start: 10-20-2023 End: 10-20-2023 ambulatory LIVING MANAGER-C Nataly E Spasic Work Phone: [facility] Work Phone: Start: 10-20-2023 End: 10-20-2023 Patient encounter procedure LIVING MANAGER-C Nataly Spasic Work Phone: [facility] Work Phone: Start: 10-07-2023 End: 10-07-2023 Patient encounter procedure LIVING MANAGER-C Nataly Spasic Work Phone: [facility] [place] Work Phone: Start: 10-07-2023 End: 10-07-2023 ambulatory LIVING MANAGER-C Nataly E Spasic Work Phone: [facility] Work Phone: Start: 10-04-2023 End: 10-05-2023 Emergency department patient visit LIVING MANAGER-C Nataly Spasic Work Phone: [facility] Work Phone: Start: 09-30-2023 End: 09-30-2023 ambulatory LIVING MANAGER-C Nataly E Spasic Work Phone: [facility] Work Phone: Start: 09-30-2023 End: 09-30-2023 Departed Referred LIVING MANAGER-C Nataly Spasic Work Phone: [facility] [place] Work Phone: Start: 09-26-2023 End: 09-27-2023 Emergency department patient visit LIVING MANAGER-C Nataly Spasic Work Phone: [facility] Work Phone: Start: 08-20-2023 End: 08-21-2023 Emergency department patient visit LIVING MANAGER-C Nataly Spasic Work Phone: [facility] Work Phone: Start: 08-03-2023 End: 08-03-2023 ambulatory Nataly E Spasic [facility] Work Phone: Start: 08-03-2023 End: 08-03-2023 Departed Referred LIVING MANAGER-C Nataly Spasic Work Phone: [facility] Start: 05-27-2023 End: 05-27-2023 ambulatory RADHA E RINKES Not Available Start: 05-25-2023 End: 05-25-[address] Not Available Start: 05-05-2023 End: 05-05-2023 ambulatory RADHA E RINKES Not Available Start: 04-15-2023 End: 04-15-2023 ambulatory Nataly E Spasic Facility:[facility] Start: 03-17-2023 End: 03-17-2023 Patient encounter procedure PHYSICIAN NO [facility] Work Phone: Start: 03-17-2023 End: 03-17-2023 ambulatory PHYSICIAN NO [facility] Work Phone: Start: 03-04-2023 End: 03-04-2023 ambulatory PHYSICIAN NO [facility] Work Phone: Start: 03-04-2023 End: 03-04-2023 Departed Referred PHYSICIAN NO [facility] Start: 02-13-2023 End: 02-13-2023 Evaluation and management of inpatient LIVING MANAGER-C Nataly Spasic Work Phone: [facility] [place] Work Phone: Start: 02-01-2023 End: 02-01-2023 Patient encounter procedure LIVING MANAGER-C Nataly Spasic Work Phone: [facility] Labor - O/P Start: 02-01-2023 End: 02-01-2023 ambulatory LIVING MANAGER-C Nataly E Spasic Work Phone: [facility] Work Phone: Start: 01-30-2023 End: 01-31-2023 Patient encounter procedure LIVING MANAGER-C Nataly Spasic Work Phone: [facility] Labor - O/P Start: 01-30-2023 End: 01-31-2023 ambulatory LIVING MANAGER-C Nataly E Spasic Work Phone: [facility] Work Phone: Start: 01-22-2023 End: 01-22-2023 Patient encounter procedure LIVING MANAGER-C Nataly Spasic Work Phone: [facility] Labor - O/P Start: 01-22-2023 End: 01-22-2023 ambulatory LIVING MANAGER-C Nataly E Spasic Work Phone: [facility] Work Phone: Start: 01-21-2023 End: 01-21-2023 Patient encounter procedure LIVING MANAGER-C Nataly Spasic Work Phone: [facility] Labor - O/P Start: 01-21-2023 End: 01-21-2023 ambulatory LIVING MANAGER-C Nataly E Spasic Work Phone: [facility] Work Phone: Start: 01-05-2023 End: 01-05-2023 ambulatory LIVING MANAGER-C Nataly E Spasic Work Phone: [facility] Work Phone: Start: 01-05-2023 End: 01-05-2023 Departed Referred LIVING MANAGER-C Nataly Spasic Work Phone: [facility] [place] Work Phone: Start: 12-22-2022 End: 12-22-2022 Patient encounter procedure LIVING MANAGER-C Nataly Spasic Work Phone: [facility] [place] Work Phone: Start: 12-22-2022 End: 12-22-2022 ambulatory LIVING MANAGER-C Nataly E Spasic Work Phone: [facility] Work Phone: Start: 12-08-2022 End: 12-08-2022 ambulatory LIVING MANAGER-C Nataly E Spasic Work Phone: [facility] Work Phone: Start: 12-08-2022 End: 12-08-2022 Departed Referred LIVING MANAGER-C Nataly Spasic Work Phone: [facility] [place] Work Phone: Start: 12-03-2022 End: 12-03-2022 ambulatory LIVING MANAGER-C Nataly E Spasic Work Phone: [facility] Work Phone: Start: 12-03-2022 End: 12-03-2022 Departed Referred LIVING MANAGER-C Nataly Spasic Work Phone: [facility] Start: 12-01-2022 End: 12-01-2022 Emergency department patient visit LIVING MANAGER-C Nataly Spasic Work Phone: [facility]-Emergency Room Work Phone: Start: 11-21-2022 End: 11-21-2022 ambulatory LIVING MANAGER-C Nataly E Spasic Work Phone: [facility] Work Phone: Start: 11-21-2022 End: 11-21-2022 Patient encounter procedure LIVING MANAGER-C Nataly Spasic Work Phone: [facility] [place] [facility] - [facility] Start: 11-20-2022 End: 11-20-2022 ambulatory LIVING MANAGER-C Nataly E Spasic Work Phone: [facility] Work Phone: Start: 11-20-2022 End: 11-20-2022 Patient encounter procedure LIVING MANAGER-C Nataly Spasic Work Phone: [facility] Labor - O/P Start: 11-19-2022 End: 11-19-2022 ambulatory LIVING MANAGER-C Nataly E Spasic Work Phone: [facility] Work Phone: Start: 11-19-2022 End: 11-19-2022 Patient encounter procedure LIVING MANAGER-C Nataly Spasic Work Phone: [facility] Labor - O/P Start: 07-13-2022 End: 07-14-2022 ambulatory PA ABDIRASHID HARDEN . Facility: Start: 06-23-2022 End: 06-23-2022 ambulatory LIVING MANAGER-C Nataly E Spasic Work Phone: [facility] Work Phone: Start: 06-23-2022 End: 06-23-2022 Patient encounter procedure LIVING MANAGER-C Nataly Spasic Work Phone: [facility] Work Phone: Start: 06-16-2022 End: 06-16-2022 Departed Referred LIVING MANAGER-C Nataly Spasic Work Phone: [facility] Start: 06-04-2022 End: 06-04-2022 ambulatory LIVING MANAGER-C Nataly E Spasic Work Phone: [facility] Work Phone: Start: 06-04-2022 End: 06-04-2022 Patient encounter procedure LIVING MANAGER-C Nataly Spasic Work Phone: [facility] [place] Work Phone: Start: 06-03-2022 End: 06-03-[address] SHARMILA BAIG . Facility:[facility] Start: 05-28-2022 End: 05-28-2022 ambulatory LIVING MANAGER-C Nataly Toure Work Phone: [facility] Work Phone: Start: 05-28-2022 End: 05-28-2022 Departed Referred LIVING MANAGER-C Nataly Toure Work Phone: [facility] Start: 03-15-2022 End: 03-16-2022 ambulatory CORRINA DHALIWAL Facility:[facility] Start: 10-18-2021 End: 10-18-2021 Evaluation and management of inpatient DO Obdulia Oneil Work Phone: [facility] Labor [facility] Delivery Start: 10-16-2021 End: 10-16-2021 Departed Referred DO Obdulia Thad Work Phone: [facility] Start: 08-31-2021 End: 08-31-[address] CAMACHO HERNANDEZ . Facility:[facility] Start: 08-08-2021 End: 08-08-2021 ambulatory CORRINA DHALIWAL Facility:[facility] Start: 07-21-2021 End: 07-21-2021 Patient encounter procedure DO Obdulialeigh Oneil Work Phone: [facility] Start: 08-03-2018 End: 08-04-2018 Patient encounter procedure SHARLA HICKS Facility:[facility] Procedures Date Procedure Procedure Detail Performing Clinician Start: 04-06-2024 RECURRENT VAGINITIS (HTRX) Kim QUICK Work Phone: Start: 04-06-2024 Urnls dip stick/tabl et rgnt non-auto w/o micrscp Kim QUICK Work Phone: Start: 04-06-2024 IGP,APTIMA HPV,AGE GDLN Kim QUICK Work Phone: Start: 03-14-2024 US OB CERVICAL LENGTH C mildred Hernandez DO Work Phone: Start: 03-09-2024 Urnls dip stick/tabl et rgnt non-auto w/o micrscp Camacho Pintoo DO Work Phone: Start: 02-25-2024 BOX TEST Camacho Pinto o DO Work Phone: Start: 02-25-2024 FREE CELL DNA (NON-[place]) Not In System Ref Prov Start: 02-03-2024 End: 02-03-2024 Urnls dip stick/tablet rgnt non-auto w/o micrscp Camacho Pintoo DO Work Phone: Start: 10-07-2023 Diagnostic radiograp hy of abdomen LIVING MANAGER-C Nataly Junesic Work Phone: Start: 10-07-2023 Ultrasonography of liver LIVING MANAGER-C Nataly Spasic Work Phone: Start: 10-07-2023 US scan of thyroid LIVING MANAGER-C Nataly Spasic Work Phone: Start: 09-26-2023 CT of lumbar spine w ithout contrast LIVING MANAGER-C Nataly Spasic Work Phone: Start: 09-26-2023 Urine culture LIVING MANAGER-C Andrez a Spasic Work Phone: Start: 02-13-2023 Urine culture PHYSICIAN NO FAMILY Start: 02-01-2023 Urine culture LIVING MANAGER-C Andrez a Spasic Work Phone: Start: 01-05-2023 Streptococcus agalac tiae culture LIVING MANAGER-C Nataly Spasic Work Phone: Start: 12-01-2022 Plain chest X-ray LIVING MANAGER-C Nataly Spasic Work Phone: Start: 12-01-2022 Respiratory Panel (PCR) LIVING MANAGER-C Nataly Spasic Work Phone: Start: 11-20-2022 Ultrasound scan - obstetric LIVING MANAGER-C Nataly Spasic Work Phone: Start: 06-04-2022 US scan of gallbladder LIVING MANAGER-C Nataly Toure Work Phone: Start: 08-03-2018 Anes integ extremiti es ant trunk & perineum nos AREN Gavin PITT Start: 08-03-2018 Repair nail bed SHARLA CLAKR SARS Antigen (LFIA) DO Luis Enrique Oneil Work Phone: Streptococcus agalac tiae culture DO Obdulia Oneil Work Phone: Plan of Treatment Date Care Activity Detail Author Start: 04-13-2025 Adult BMI Screening Adult BMI Screen ing [facility] Start: 04-13-2025 Tobacco Screening Tobacco Screening [facility] Start: 04-13-2025 End: 04-13-2025 US MFM with or without consult US MFM with or without consult Imaging Routine History of delivery, currently Expected: 04/13/2025 (Approximate), Expires: 04/13/2025 [employer] Work Phone: Comment on above: Expected: 04/13/2025 (Approximate), Expires: 04/13/2025 Start: 05-09-2024 End: 05-09-2024 Patient encounter procedure 05/09/2024 11:15 AM EDT Appointment [facility] - Ultrasound [address] [place] [id number] [facility] - Ultrasound Start: 05-04-2024 End: 05-04-2024 Patient encounter procedure 05/04/2024 11:10 AM EDT Office Visit [facility] [address] [facility] [address] Camacho Hernandez, DO [address] [place], [place] [id number] [facility] Start: 05-02-2024 End: 05-02-2024 Patient encounter procedure 05/02/2024 9:15 AM EDT Appointment [facility] - Ultrasound [address] [place] [address] [facility] - Ultrasound Start: 04-13-2024 End: 04-13-[address] [facility] US Imaging Start: 04-06-2024 End: 04-06-2025 US Pelvis transvaginal US OB transvaginal Imaging Routine History of delivery, currently Expected: 04/06/2024, Expires: 04/06/2025 [facility] Comment on above: Expected: 04/06/2024 , Expires: 04/06/2025 Start: 04-06-2024 End: 04-06-2024 Patient encounter procedure [facility] Comment on above: Arrived Start: 03-09-2024 End: 05-07-2024 Alpha fetoprotein, maternal Alpha fetoprotein, maternal Lab Routine Second trimester 16 weeks gestation of Expected: 03/09/2024 (Approximate), Expires: 05/07/2024 [facility] Work Phone: Comment on above: Expected: 03/09/2024 (Approximate), Expires: 05/07/2024 Start: 03-09-2024 End: 03-09-2025 Measurement of glucose 1 hour after glucose challenge for glucose tolerance test Glucose tolerance, 1 hour Lab Routine History of delivery, currently History of gestational diabetes Expected: 03/09/2024 (Approximate), Expires: 03/09/2025 [facility] Comment on above: Expected: 03/09/2024 (Approximate), Expires: 03/09/2025 Start: 03-09-2024 End: 03-09-2025 US Pelvis transvaginal US OB transvaginal Imaging Routine History of delivery, currently Expected: 03/09/2024, Expires: 03/09/2025 [facility] Comment on above: Expected: 03/09/2024 , Expires: 03/09/2025 Start: 03-09-2024 End: 03-09-2024 Patient encounter procedure [facility] Comment on above: Arrived Start: 02-03-2024 End: 02-02-2025 ABO/Rh ABO/Rh Lab Routine Missed menses , unspecified gestational age Expected: 02/03/2024 (Approximate), Expires: 02/02/2025 [facility] Comment on above: Expected: 02/03/2024 (Approximate), Expires: 02/02/2025 Start: 02-03-2024 End: 02-02-2025 Blood type and Indirect antibody screen panel - Blood Type and screen Lab Routine Missed menses , unspecified gestational age Expected: 02/03/2024 (Approximate), Expires: 02/02/2025 [facility] Work Phone: Comment on above: Expected: 02/03/2024 (Approximate), Expires: 02/02/2025 Start: 02-03-2024 End: 02-02-2025 Drugs of abuse panel - Urine by Screen method Rapid drug screen, urine Lab Routine , unspecified gestational age Encounter for supervision of normal first in first trimester Expected: 02/03/2024 (Approximate), Expires: 02/02/2025 [facility] Comment on above: Expected: 02/03/2024 (Approximate), Expires: 02/02/2025 Start: 02-03-2024 End: 02-02-2025 US Pelvis transvaginal US OB transvaginal Imaging Routine Missed menses Expected: 02/03/2024 (Approximate), Expires: 02/02/2025 [facility] Comment on above: Expected: 02/03/2024 (Approximate), Expires: 02/02/2025 Start: 10-17-2023 Influenza [facility] Start: 09-26-2023 CT Lumbar spine WO contrast [facility] Start: 09-26-2023 CT of lumbar spine w ithout contrast CT lumbar spine wo con [facility] Start: 09-26-2023 Bacteria identified in Urine by Culture [facility] Start: 08-20-2023 [facility] Start: 02-14-2023 [facility] Start: 02-13-2023 End: 02-13-2023 [facility] Start: 02-13-2023 Bacteria identified in Urine by Culture [facility] Start: 02-13-2023 Delivery of Products of Conception, External Approach Delivery of Products of Conception, External Approach [facility] Start: 02-13-2023 Drainage of Amniotic Fluid, Therapeutic from Products of Conception, Via Natural or Artificial Opening Drainage of Amniotic Fluid, Therapeutic from Products of Conception, Via Natural or Artificial Opening [facility] Start: 02-13-2023 Hospital admission [facility] Start: 02-13-2023 Hospital admission [facility] Start: 02-13-2023 End: 02-13-2023 [facility] Start: 02-01-2023 [facility] Start: 02-01-2023 Hospital admission [facility] Start: 02-01-2023 Bacteria identified in Urine by Culture [facility] Start: 01-31-2023 [facility] Start: 01-30-2023 Hospital admission [facility] Start: 01-22-2023 [facility] Start: 01-21-2023 [facility] Start: 01-05-2023 Group B Streptococcu s Culture Group B Streptococcus Culture [facility] Start: 12-01-2022 Respiratory Panel (PCR) Respiratory Panel (PCR) [facility] Start: 11-21-2022 [facility] Start: 11-20-2022 [facility] Start: 11-20-2022 Hospital admission [facility] Start: 11-19-2022 [facility] Start: 11-19-2022 Hospital admission [facility] Start: 11-19-2022 [facility] Start: 10-18-2021 End: 10-18-2021 [facility] Work Phone: Start: 10-18-2021 Hospital admission [facility] Work Phone: Start: 2020 Screening for malign ant neoplasm of cervix Pap Smear [facility] [employer] [facility] Start: 02-16-2020 DTaP,Tdap and Td Vac cines (2 - Td or Tdap) DTaP,Tdap and Td Vaccines (2 - Td or Tdap) [facility] [employer] [facility] Start: 2017 Adult BMI Follow Up Plan [facility]: 2017 [facility]ening [facility] Start: 2011 Depression Screening Depression Scre ening [facility] Start: 2011 Tobacco Screening Tobacco Screening [facility] Bacteria identified in Urine by Culture [facility] Bacteria identified in Urine by Culture Urine culture Microbiology Routine Missed menses Ordered: 02/03/2024 [facility] Comment on above: Ordered: 02/03/2024 CBC W Auto Different ial panel - Blood CBC and differential Lab Routine Missed menses , unspecified gestational age Ordered: 02/03/2024 [facility] Comment on above: Ordered: 02/03/2024 CHLAMYDIA TRACHOMATI S (GENITO/STI) CHLAMYDIA TRACHOMATIS (GENITO/STI) Lab Routine STD exposure Vaginal discharge Ordered: 04/06/2024 [facility] Comment on above: Ordered: 04/06/2024 Cytology Cervical or vaginal smear or scraping study Pap Smear Pathology and Cytology Routine Well woman exam with routine gynecological exam Ordered: 04/06/2024 [facility] Comment on above: Ordered: 04/06/2024 Glucose measurement estimated from glycated hemoglobin [facility] Hemoglobin A1c/Hemoglobin.total in Blood [facility] Hemoglobin A1c/Hemoglobin.total in Blood Hemoglobin A1c Lab Routine Missed menses , unspecified gestational age Ordered: 02/03/2024 [facility] Comment on above: Ordered: 02/03/2024 Hepatitis B virus almeida rface Ag [Presence] in Serum or Plasma by Immunoassay Hepatitis B surface antigen Lab Routine Missed menses , unspecified gestational age Ordered: 02/03/2024 [facility] Comment on above: Ordered: 02/03/2024 Hepatitis C virus Ab [Presence] in Serum or Plasma by Immunoassay Hepatitis C antibody Lab Routine Missed menses , unspecified gestational age Ordered: 02/03/2024 [facility] Comment on above: Ordered: 02/03/2024 HIV-1/HIV-2 antigen/antibody combination immunoassay HIV-1 and HIV-2 antibodies Lab Routine Missed menses , unspecified gestational age Ordered: 02/03/2024 [facility] Comment on above: Ordered: 02/03/2024 Insulin [Units/volum e] in Serum or Plasma [facility] Insulin [Units/volum e] in Serum or Plasma [facility] Insulin [Units/volum e] in Serum or Plasma [facility] Neisseria gonorrhoea e DNA [Presence] in Unspecified specimen by SVETLANA with probe detection Neisseria gonorrhea DNA probe, direct Lab Routine STD exposure Vaginal discharge Ordered: 04/06/2024 [facility] Comment on above: Ordered: 04/06/2024 Patient Education [facility] Work Phone: Patient referral [facility] Work Phone: Reagin Ab [Presence] in Serum by RPR [facility] Work Phone: Reagin Ab [Presence] in Serum by RPR [facility] Reagin Ab [Presence] in Serum by RPR RPR Lab Routine Missed menses , unspecified gestational age Ordered: 02/03/2024 [facility] Comment on above: Ordered: 02/03/2024 Respiratory pathogen s DNA and RNA panel - Nasopharynx by SVETLANA with non-probe detection [facility] Rubella antibody, IgG Rubella an tibody, IgG Lab Routine Missed menses , unspecified gestational age Ordered: 02/03/2024 [facility] Comment on above: Ordered: 02/03/2024 Streptococcus agalac tiae [Presence] in Unspecified specimen by Organism specific culture [facility] SURESWAB(R) ADVANCED VAGINITIS PLUS, TMA SURESWAB(R) ADVANCED VAGINITIS PLUS, TMA Pathology and Cytology Routine STD exposure Vaginal discharge Ordered: 04/06/2024 [facility] Work Phone: Comment on above: Ordered: 04/06/2024 Thyroperoxidase Ab [Units/volume] in Serum or Plasma [facility] Thyrotropin [Units/v olume] in Serum or Plasma [facility] Thyrotropin [Units/v olume] in Serum or Plasma TSH Lab Routine , unspecified gestational age Encounter for supervision of normal first in first trimester Ordered: 02/03/2024 [facility] Comment on above: Ordered: 02/03/2024 Thyroxine (T4) free index in Serum or Plasma by calculation [facility] Thyroxine measurement [facility] Triiodothyronine (T3 ) [Mass/volume] in Serum or Plasma [facility] Triiodothyronine res in uptake (T3RU) in Serum or Plasma [facility] Immunizations Immunization Date Immunization Notes Care Provider Fa cility 04-09-2023 influenza virus vaccine, unspecified formulation [facility] 02-13-2023 tetanus toxoid, reduced diphtheria toxoid, and acellular pertussis vaccine, adsorbed RONDA Toure Work Phone: [facility] 01-10-2021 influenza, injectable, quadrivalent, preservative free DO Obdulia Oneil Work Phone: [facility] 02-15-2010 tetanus toxoid, reduced diphtheria toxoid, and acellular pertussis vaccine, adsorbed [facility] Work Phone: 12-13-2008 novel [id number], preservative-free, injectable [facility] 12-13-2008 influenza virus vaccine, unspecified formulation Ni Carroll MD Work Phone: [facility] 07-21-2000 hepatitis B vaccine, pediatric or pediatric/adolescent dosage [facility] 07-21-2000 measles, mumps and rubella virus vaccine [facility] 1999 poliovirus vaccine, inactivated [facility] NEGATED: Highlighted row has not occurred!01-10-2021 tetanus toxoid, reduced diphtheria toxoid, and acellular pertussis vaccine, adsorbed DO Obdulialeigh Oneil Work Phone: [facility] Payers Date Payer Category Payer Self-pay [id number] 2021 Medicaid (Managed Care) [facility] MEDICAID [id number] 1999 Unknown [id number] 2.16.840.1.230781.3.579.2. 647 1999 Unknown [id number] 2.16.840.1.917669.3.579.2. 593 1999 Unknown [id number] 2.16.840.1.615172.3.579.2. 593 1999 Unknown [id number] 2.16.840.1.415778.3.579.2. 593 1999 Unknown [id number] 2.16.840.1.176954.3.579.2. 593 1999 Unknown [id number] 2.16.840.1.967582.3.579.2. 593 1999 Unknown [id number] 2.16.840.1.048030.3.579.2. 1259 1999 Unknown [id number] 2.16.840.1.257262.3.579.2. 1259 1999 Unknown [id number] 2.16.840.1.283907.3.579.2. 1259 1999 Unknown [id number] 2.16.840.1.062648.3.579.2. 1259 1999 Unknown [id number] 2.16.840.1.074407.3.579.2. 1259 1999 Unknown [id number] 2.16.840.1.585605.3.579.2. 1259 1994 Medicaid HMO [id number]. [id number] 1959 Private Health Insurance [id number] 1959 Unknown [id number] Unknown [place] BC/BS [id number] Unknown [id number] 2.16.840.1.545698.3.579.2. 531 Unknown [id number] 2.16.840.1.826624.3.579.2. 531 Unknown [id number] 2.16.840.1.869150.3.579.2. 531 Unknown [id number] 2.16.840.1.965053.3.579.2. 531 Unknown [id number] 2.16.840.1.611214.3.579.2. 531 Unknown [id number] 2.16.840.1.618179.3.579.2. 531 Unknown [id number] 2.16.840.1.957804.3.579.2. 531 Unknown [id number] 2.16.840.1.442094.3.579.2. 531 Unknown [id number] 2.16.840.1.581233.3.579.2. 531 Unknown [id number] 2.16.840.1.841314.3.579.2. 531 Unknown [id number] 2.16.840.1.990686.3.579.2. 531 Unknown [id number] 2.16.840.1.579282.3.579.2. 531 Unknown [id number] 2.16.840.1.130675.3.579.2. 531 Unknown [id number] 2.16.840.1.503192.3.579.2. 531 Unknown [id number] 2.16.840.1.161604.3.579.2. 531 Unknown [id number] 2.16.840.1.830971.3.579.2. 531 Unknown [id number] 2.16840.1.937112.3.579.2. 531 Social History Date Type Detail Facility Start: 10-18-2021 End: 03-17-2024 Tobacco smoking status NHIS Never smoked tobacco (finding) [facility] Start: 2000 Sex Assigned At Female [facility] Start: 07-28-2022 End: 03-17-2024 Tobacco use and exposure Smokeless tobacco non-user [facility] Start: 02-03-2024 End: 04-13-2024 Alcoholic beverage intake Ex-drinker (finding) [facility] Start: 03-28-2020 End: 02-12-2023 History of Social function [facility] Start: 03-28-2020 End: 02-12-2023 Tobacco use panel [facility] Start: 08-24-2022 Education [facility] Start: 08-24-2022 Alcohol Comment none with preg sascha, Caffeine intake: none [facility] Start: 12-01-2023 [facility] Start: 2000 Sex assigned at Not on file [facility] Start: 04-29-2022 Gender identity Identifies as female gender (finding) [facility] Unknown [facility] Start: 09-20-2014 Sex Female (finding) [facility] NEGATED: Highlighted row [facility] Goals Date Patient Goal Desired Activity /State Personal health goal Functional Status Date Assessment Result Facility 02-13-2023 Functional status Patient Not at Baseline [facility] Work Phone: Mental Status Date Assessment Result Facility 02-13-2023 Cognitive function Cognitive Sta tus Patient Not at Baseline [facility] Work Phone: Clinical Notes 10-18-2021 to 04-13-2024 Berenice Vyas RN - 04/13/2024 1:00 PM Jeffrey Carroll MD - 04/13/2024 1:00 PM YNES Riggs - 04/06/2024 10:30 AM Bridgette Curry LPN - 03/09/2024 10:20 AM EST Note Date & Type Note Facility 04-13-2024 History of Present illness Narrative Headache/epigastric pain/blurry vision/swelling? No Cramping/contractions? Patient reports occasional contractions Abnormal vaginal discharge? No Spotting/vaginal bleeding? Patient reports spotting in first trimester, has since resolved Loss or gush of fluid like your water may have broken? No Do you have cats at home? No Do you change the litter box (reason: risk of toxoplasmosis)? N/A Genetic testing done this here or other office? Yes Have you been seen here at [facility] in a previous ? No Recent ER visits or hospitalizations? No Bring blood sugar log or meter with you today? (Please bring them with you for every visit at [facility]) N/A Flu vaccine (Dec-April)? Yes Any concerns that you would like me to mention to the provider today? No REASON FOR CONSULTATION: Previa ruled out. HISTORY OF PRESENT ILLNESS: Rosette Alba is a pleasant 24 y.o. G [id number]. at 20w4d due on Estimated Date of Delivery: 08/27/24 . Patient was seen today due to the following 1. Suspected placenta Previa ruled out. Placenta is posterior and away from the cervix. 2. History of 6 prior late deliveries. Patient currently on vaginal progesterone therapy. Normal transvaginal cervical length. No indication for cerclage. Currently the patient has no complaints. The patient denies nausea, vomiting, abdominal pain, vaginal bleeding, SOB or chest pain. Patient's PMH/PSH,SH,PSYCH Hx, MEDs, ALLERGIES, and ROS were all reviewed and updated in the appropriate sections. Patient Active Problem List Diagnosis delivery after section Past Medical History: Diagnosis Date Anxiety Disease of thyroid gland Gestational diabetes PAST OBSTETRICAL HISTORY: OB History 7 Para 6 Term 6 AB Living 6 SAB IAB Ectopic Multiple Live Births 6 SURGICAL HISTORY: Past Surgical History: Procedure Laterality Date CHOLECYSTECTOMY INNER EAR SURGERY ALLERGIES: No Known Allergies CURRENT MEDICATIONS: Current Outpatient Medications: progesterone (FIRST-PROGESTERONE VGS) 200 mg suppository, Insert 1 suppository (200 mg total) into the vagina nightly., Disp: , Rfl: azithromycin (ZITHROMAX Z-VALENCIA) 250 mg tablet, Take 2 tablets the first day then 1 tablet every day for 4 days. (Patient not taking: Reported on 04/13/2024), Disp: 6 tablet, Rfl: 0 ferrous sulfate 325 (65 FE) MG tablet, Take 1 tablet (325 mg total) by mouth daily with breakfast. (Patient not taking: Reported on 04/13/2024), Disp: , Rfl: 25/iron fum/folic/dha (-1 ORAL), Take by mouth., Disp: , Rfl: venlafaxine XR (EFFEXOR XR) 75 mg 24 hr capsule, Take 1 capsule (75 mg total) by mouth in the morning. (Patient not taking: Reported on 04/13/2024), Disp: , Rfl: FAMILY/GENETIC HISTORY: No family history of VTE, cardiac defects and mental retardation . SOCIAL HISTORY:Patient denies tobacco use, alcohol use, or drug use. RECENT HOSPITALIZATION: none I did review all the labs results available in addition to labs which were ordered by the primary care physician, and the other consultants, we search on [employer] and all the available care everywhere epic I did review all the imaging studies of the patient available on EMR, ordered by the primary care physician and the other product safety consultant HABITS: Patient activity no restrictions, diet no restrictions REVIEW OF SYSTEM: Head and Neck: Negative for any dizziness and headaches. Cardiovascular and Respiratory System: Denies any chest pain, shortness of breath, and coughing. Abdominal and System: Denies any abdominal pain, nausea, vomiting, vaginal bleeding, and vaginal discharge Social Determinants of Health Financial Resource Strain: n Food Insecurity: n Transportation Needs: n Physical Activity: y Social Connections: y Intimate Partner Violence: n Housing Stability: y PHYSICAL EXAMINATION: BP 116/64 Pulse 98 Ht 160 cm (5' 2.99 ) Wt 102.9 kg (226 lb 12.8 oz) LMP 11/21/2023 BMI 40.19 kg/m . Gravid abdomen, Respirations not labored. Well oriented time place person, normal gait MEDICAL DECISION MAKING DISCUSSION: Patient meets the criteria for serial transvaginal cervical length and a candidate for cerclage InCase cervical length is less than 25 mm. Patient should continue her vaginal progesterone therapy until 36 weeks. Placenta previa has resolved and therefore pelvic rest has been discontinued. Follow-up in 4 weeks for completion of targeted anatomy RECOMMENDATION: 1. Serial transvaginal cervical length at 22 weeks and 23 weeks gestation at [facility] office. 2. InCase of short cervical length less than 25 mm patient will be a candidate for cerclage which will be performed through the [facility] office. 3. Placenta previa has resolved. 4. Routine care OB provider. 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 Patient does have ultrasound scheduled with us Thank you for allowing me to participate in Rosette Alba . If there any questions please do not hesitate to contact us. Sincerely, NI CARROLL MD documented in this encounter [employer] 04-06-2024 History of Present illness Narrative Reason for Appointment: Patient ID: Rosette Alba is a 24 y.o. female who presents for Routine Visit Patient presents today for Return OB appointment.with annual MEDICATIONS Current Outpatient Medications Medication Instructions ferrous sulfate 325 mg, Oral, Daily with breakfast Progesterone 200 mg, Vaginal, Nightly, Insert suppository vaginally every night at bedtime venlafaxine XR (Effexor XR) 75 MG 24 [...] SYSTEMS Review of Systems: Review of Systems Constitutional: Negative. HENT: Negative. Eyes: Negative. Respiratory: Negative. Cardiovascular: Negative. Gastrointestinal: Negative. Genitourinary: Negative. Musculoskeletal: Negative. Skin: Negative. Neurological: Negative. All other systems reviewed and are negative. Hematological: Negative. Endocrine: Negative. Allergic/Immunologic: Negative. OBJECTIVE Objective: Physical Exam Constitutional: Appearance: Normal [...] nursing note reviewed. Exam conducted with a digital media intern present. Vitals: Estimated body mass index is 39.17 kg/m as calculated from the following: Height as of 07/28/22: 5' 3 . Weight as of 03/09/24: 221 lb 2.2 oz. BP: Patient's last menstrual period was 11/21/2023. ASSESSMENT & PLAN ICD-10-CM 1. Second trimester Z34.92 POCT urinalysis dipstick manually resulted CANCELED: Alpha fetoprotein, maternal CANCELED: Alpha fetoprotein, maternal 2. 20 weeks gestation of Z3A.20 3. STD exposure Z20.2 SURESWAB(R) ADVANCED VAGINITIS PLUS, TMA CHLAMYDIA TRACHOMATIS (GENITO/STI) Neisseria gonorrhea DNA probe, direct 4. Well woman exam with routine gynecological exam Z01.419 Pap Smear 5. Vaginal discharge N89.8 SURESWAB(R) ADVANCED VAGINITIS PLUS, TMA CHLAMYDIA TRACHOMATIS (GENITO/STI) Neisseria gonorrhea DNA probe, direct 6. History of delivery, currently O09.899 US OB transvaginal Return OB/Annual Exam: Patient presents today for an annual exam/routine obstetrics appointment. Patient is currently 20w1d . Patient is doing well and states she has no complaints. Pap/cultures was obtained without difficulty and patient was given msAFP order to have obtained. Patient has appointment with MFM next week to evaluate complete placenta previa Orders Placed This Encounter Procedures US OB transvaginal CHLAMYDIA TRACHOMATIS (GENITO/STI) Neisseria gonorrhea DNA probe, direct POCT urinalysis dipstick manually resulted Follow Up: Patient is to return to our office in 4 weeks for routine OB appointment Documented by Taylor Rebolledo LPN on behalf of: YNES Xiong documented in this encounter [facility] 03-09-2024 History of Present illness Narrative Reason [...] nursing note reviewed. Exam conducted with a digital media intern present. Vitals: Estimated body mass index is [...] or undercooked meat, and stay away from [facility]. Patient has been consulted regarding any further do's and don'ts of . Patient voiced understanding and all questions and concerns were answered. Discussed vaginal progesterone with patient and that medication will be stopped at 36 weeks gestation, and Celestone will be given at 32 weeks. Patient given early 1 hour gtt and MSAFP. Vaginal suppositories sent to [facility]. [facility] Orders Placed This Encounter Procedures US OB transvaginal Alpha fetoprotein, maternal Glucose tolerance, 1 hour POCT urinalysis dipstick manually resulted Follow Up: Patient is to return in 4 weeks for routine OB appointment. Documented by Ce Curry LPN on behalf of: Camacho Hernandez DO documented in this encounter [facility] 02-03-2024 History of Present illness Narrative Reason [...] or undercooked meat, and stay away from [facility]. Patient has also been advised to [...] Danay Velasquez MA documented in this encounter [facility] 02-13-2023 Procedure note [facility] 10-18-2021 History and physical note Note Date/Time October 18, 2021 1:40am [facility] [address] [place] [address] SUSPENDER MAKER History & Physical Signed Patient: Rosette Alba MR#: [id number] : 2000 Acct:[id number] Age/Sex: 21 / F Adm Date: 2 Loc: Room: 3P0764-1 Type: ADM IN Attending Dr: Jennie Smith MD Copies to: Jennie Smith MD-[facility] Obdulia Oneil DO~ Date of Service: 10/18/2021 Review of Systems Review of Systems All other systems reviewed & are negative unless noted below or in HPI OB [facility] Medical History (Updated 10/18/21 @ 01:30 by Jennie Smith MD) Anxiety Depression Thyroid disease No meds at present time. UTI (urinary tract infection) Surgical History (Updated 01/08/21 @ 21:48 by Marie Wynn RN) History of placement of ear tubes SUSPENDER MAKER Hx : 5 : 4 Livin EDC [...] % (Auto) 73.3, Lymph % (Auto) 17.0, [place] % (Auto) 8.1, Eos % (Auto) 1.3, Baso % (Auto) 0.3, Neut # (Auto) 7.4, Lymph # (Auto) 1.7, [place] # (Auto) 0.8, Eos # (Auto) 0.1, Baso # (Auto) 0.0, Nucleated RBC % (auto) 0.1 10/18/21 00:27: Urine Color Yellow, Urine Appearance Cloudy A, Urine pH 6.5, Ur Specific [place] 1.020, Urine Protein Trace H, Urine Glucose [...] <Electronically signed by TELMA Smith> 10/18/21 0141 [facility] Work Phone: [phone]) 200-977209-03-2022 [facility] Diagnosis Onset Date Resolution Status 33 weeks gestation of acute [facility] Work Phone: [employer] noteNo assessment information available [facility] Work Phone: [employer] note* Diagnosis Onset Date Resolution Status 35 weeks gestation of acute [facility] Work Phone: GroupCardaluation note* Diagnosis Onset Date Resolution Status Iron deficiency anemia acute [facility] Work Phone: evaluation note* Diagnosis Missed menses , unspecified gestational age Encounter for supervision of normal first in first trimester documented in this encounter [facility]* Diagnosis Second trimester state, incidental 16 weeks gestation of History of delivery, currently with history of pre-term labor Diabetes mellitus screening Screening for diabetes mellitus History of gestational diabetes Personal history of other genital system and obstetric disorders documented in this encounter [facility]* Diagnosis Second trimester - Primary state, incidental 20 weeks gestation of STD exposure Well woman exam with routine gynecological exam Routine gynecological examination Vaginal discharge Leukorrhea, not specified as infective History of delivery, currently with history of pre-term labor URI, acute Acute upper respiratory infections of unspecified site documented in this encounter [facility] HealthcareEvaluation note* Diagnosis History of delivery, currently - Primary with history of pre-term labor documented in this [facility] Diagnosis delivery after section- Primary [facility] Additional Instructions You have a respiratory panel is pending you will be called with any positive results Push fluids Humidifier may be beneficial Tylenol only for your discomfort Follow-up with your PCP and your SUSPENDER MAKER call tomorrow for appointment Salt water gargles to soothe your throat Handwashing Rest Return here if any problems persist or worsen including abdominal pain, vaginal bleeding, increased pain, dyspnea or any other [facility] Work Phone: InstructionsNot on filedocumented in this encounter [facility] on filedocumented in this encounter [facility] SystemInstructionsNot on filedocumented in this encounter [facility] Summary Purpose Family History Relationship Condition Age [...] section and content) DATE CREATED AUTHOR 10/16/2018 [facility] DATE CREATED AUTHOR AUTHOR'S ORGANIZ ATION 07/24/2022 [facility] DATE CREATED AUTHOR AUTHOR'S ORGANIZ ATION 12/17/2023 [facility] DATE CREATED AUTHOR AUTHOR'S ORGANIZ ATION 03/22/2024 [facility] DATE CREATED AUTHOR AUTHOR'S ORGANIZ ATION 04/08/2024 [facility] Care Teams (unrecognized sec tion and content) [...] Member Role Status Dates Nataly Toure , LIVING MANAGER-C Attending Provider Active Team Status: Active Member Role Status Dates Nataly Toure , LIVING MANAGER-C Primary Care Provider Active Team Status: Inactive Member Role Status Dates Nataly Toure , LIVING MANAGER-C Primary Care Provider, Attending Provider Active Team Status: Inactive Member Role Status Dates Nataly E Delonc , LIVING MANAGER-C Primary Care Provider Active Marcello Hudson DO Attending Provider Active Team Status: Inactive Member Role Status Dates Nataly Jerniganc , LIVING MANAGER-C Primary Care Provider Active Mary Kay Cantu DO Attending Provider Active Team Status: Inactive Member Role Status Dates Nataly Toure , LIVING MANAGER-C Primary Care Provider Active Jennie Smith MD Attending Provider Active Team Status: Inactive Member Role Status Dates Natayl Toure , LIVING MANAGER-C Primary Care Provider Active Staci Ortiz , FUNDS TRANSFER CLERK Emergency Provider Active Team Status: Inactive Member Role Status Dates Nataly Toure , LIVING MANAGER-C Attending Provider Active Services [facility] Primary Care Provider Ac tive Team Status: Inactive Member Role Status Dates Radha Molina DO Attending Provider Active Team Status: Active Member Role Status Dates PHYSICIAN NO FAMILY Primary Care Provider Active Team Status: Inactive Member Role Status Dates Radha Molina DO Attending Provider Active PHYSICIAN NO FAMILY Primary Care Provider Active Team Status: Inactive Member Role Status Dates Nataly Toure , LIVING MANAGER-C Primary Care Provider Active Radha Molina DO Attending Provider Active Team Status: Inactive Member Role Status Dates Nataly Toure , LIVING MANAGER-C Primary Care Provider Active Ede Way MD [...] Role Status Dates Nataly E Spasic , LIVING MANAGER-C Primary Care Provider Active Start: January 21, 2023 End: January 21, 2023 Radha Molina DO Attending Provider Active S tart: January 21, 2023 End: January 21, 2023 Team Status: Inactive Member Role Status Dates Nataly Brian Junesic , LIVING MANAGER-C Primary Care Provider Active Start: January 22, 2023 End: January 22, 2023 Radha Molina DO Attending Provider Active S tart: January 22, 2023 End: January 22, 2023 Team Status: Inactive Member Role Status Dates Nataly Brian Junesic , LIVING MANAGER-C Primary Care Provider Active Start: January 30, 2023 End: January 31, 2023 Mary Kay Cantu DO Attending Provider Active Start: January 30, 2023 End: January 31, 2023 Team Status: Inactive Member Role Status Dates Nataly Brian Junesic , LIVING MANAGER-C Primary Care Provider Active Start: February 01, 2023 End: February 01, 2023 Radha Molina DO Attending Provider Active S tart: February 01, 2023 End: February 01, 2023 Team Status: Inactive Member Role Status Dates Nataly Brian Jerniganc , LIVING MANAGER-C Primary Care Provider Active Start: February 13, 2023 End: February 13, [address] MD Admit Provider, [facility] Provider Active Start: February 13, 2023 End: February 13, 2023 Team Status: Inactive Member Role Status Dates Nataly Brian Junesic , LIVING MANAGER-C Attending Provider Active Start: March 04, 2023 End: March 04, 2023 Team Status: Active Member Role Status Dates Services [facility] Primary Care Provider Ac tive Team Status: Inactive Member Role Status Dates Nataly Brian Jerniganc , LIVING MANAGER-C Attending Provider Active Start: March 17, 2023 End: March 17, 2023 [facility] Primary Care Provider Ac tive Start: March 17, 2023 End: March 17, 2023 Team Status: Inactive Member Role Status Dates Nataly Brian Junesic , LIVING MANAGER-C Attending Provider Active Start: August 03, 2023 End: August 03, 2023 Team Status: Inactive Member Role Status Dates Nataly Brian Junesic , LIVING MANAGER-C Primary Care Provider Active Start: August 20, 2023 End: August 21, 2023 Carmelo Vinson DO Emergency Provider Active St art: August 20, 2023 End: August 21, 2023 Team Status: Inactive Member Role Status Dates Nataly Toure , LIVING MANAGER-C Primary Care Provider Active Start: September 26, 2023 End: September 27, 2023 Devon Leon PA-C Emergency Provider Active Start: September 26, 2023 End: September 27, 2023 Team Status: Inactive Member Role Status Dates Nataly Toure , LIVING MANAGER-C Primary Care Provi emmanuel, Attending Provider Active Start: September 30, 2023 End: September 30, 2023 Team Status: Inactive Member Role Status Dates Nataly Brian Toure , LIVING MANAGER-C Primary Care Provider Active Start: October 04, 2023 End: October 05, 2023 Carmelo Vinson DO Emergency Provider Active St art: October 04, 2023 End: October 05, 2023 Team Status: Inactive Member Role Status Dates Nataly Toure , LIVING MANAGER-C Primary Care Provi emmanuel, Attending Provider Active Start: October 07, 2023 End: October 07, 2023 Team Status: Inactive Member Role Status Dates Nataly Toure , LIVING MANAGER-C Primary Care Provi emmanuel, Referring Provider Active Start: October 20, 2023 End: October 20, 2023 Melania Arceo APRN Attending Provider Active Start: October End: October 20, 2023 Team Status: Active Member Role Status Dates Nataly Toure , LIVING MANAGER-C Primary Care Provi emmanuel, Referring Provider Active Start: October 20, 2023 Melania Arceo APRN Attending Provider Active Start: October Flooring Professional Relationship Specialty Start Date End Date Unallocated, MD Jose Angel Costa [place] [id number] PCP - General 06/29/22 Flooring Professional Relationship Specialty Start Date End Date Unallocated, Jonny Chap[place] [address] PCP - General 06/29/22 Flooring Professional Relationship Specialty Start Date End Date Unallocated, MD Jose Angel Costa [place] [address] PCP - General 06/29/22 Flooring Professional Relationship Specialty Start Date End Date Unallocated, Jonny Chapa MD [address] [place] [id number] PCP - General 06/29/22 Flooring Professional Relationship Specialty Start Date End Date Martin Chapman MD [address] [place] [id number] PCP - General Family Medicine 02/24/18 Flooring Professional Relationship Specialty Start Date End Date Unallocated, Jonny Chapa MD [address] [place] [id number] PCP - General 06/29/22 Flooring Professional Relationship Specialty Start Date End Date Unallocated, Jonny Chapa MD [address] [place] [id number] PCP - General 06/29/22 Flooring Professional Relationship Specialty Start Date End Date Unallocated, Jonny Chapa MD [address] [place] [id number] PCP - General 06/29/22 Flooring Professional Relationship Specialty Start Date End Date Martin Chapman MD [address] [place], [place] [phone] PCP - General Family Medicine 02/24/18 Flooring Professional Relationship Specialty Start Date End Date Martin Chapman MD [address] [place] [id number] PCP - General Family Medicine 02/24/18 Goals [...] alternate sectionNot on filedocumented as of this encounterNot on filedocumented as of this encounterNot on filedocumented as of this encounter Reason for Visit (unrecogniz ed section and content) Reason Comments Routine Visit Reason Comments Placenta Previa FOR RECORDS PERTAINING TO PATIENTS WHO ARE [...] BE BASED ON THE PRIMARY CLINICAL RECORDS. [facility] [employer] [facility]. provides no warranty or guarantee of the accuracy or completeness of information in this document.
[2024-04-14 21:32] VITALS: BP 140/66; PULSE 97
[2024-04-14 21:51] LABS: Bilirubin Urine NEGATIVE (NEGATIVE); Blood Urine NEGATIVE (NEGATIVE); Clarity Urine CLEAR (CLEAR); Color Urine LT. YELLOW (YELLOW); Glucose Urine UA NEGATIVE (NEGATIVE); Ketones Urine NEGATIVE (NEGATIVE); Leukocyte Esterase Urine NEGATIVE (NEGATIVE); Nitrite Urine NEGATIVE (NEGATIVE); Protein Urine NEGATIVE (NEG/TRACE); Specific Gravity Urine <=1.005 (1.005-1.025); Urine Microscopic Indicated NO; Urobilinogen Urine 0.2 EU/dL (0.2-1.0); pH Urine 6.5 (5.0-9.0)
== END 2024-04-14 22:20 | disposition home or self-care (01) ==
PROVIDERS: Admitting Provider Obstetrics & Gynecology; PCP Family Medicine; Visit Provider Obstetrics & Gynecology
DX: O99.892 Other specified diseases and conditions complicating childbirth (principal); R10.9 Unspecified abdominal pain; Z3A.21 21 weeks gestation of pregnancy
CPT/HCPCS: 81003; G0378; G0379

== ENCOUNTER 2024-04-28 19:49 | Observation (INO) | payer OTHER, SELFPAY ==
--- OUTSIDE RECORDS SUMMARY | 2024-04-28 19:55 | XMS_ITS | CCD ---
Author Organization [facility] Care Team Providers Care Sales Engineer Engineered Products Name Role Phone EBWANDA, SHARLA Admitting Unavailable EBWANDA SHARLA Attending Unavailable OBDULIA ONEIL Referring Unavailable OBDULIA ONEIL Primary Care Unavailable [place] Procedure Practitioner Unavailab SHARLA Singh Surgeon Unavailable [place] Procedure Practitioner Unavailab AREN Ferguson Surgeon Unavailable DO Obdulia Oneil Primary Care Provider [phone] DO Radha Molina Attending Provider [phone] MD Jennie Smith Admit Provider MD Jennie Smith Attending Provider Spasic, BOARDINGHOUSE KEEPER-C Nataly Torres Attending Provider [phone] Spasic, BOARDINGHOUSE KEEPER-C Nataly Torres Primary Care Provider DO Marcello Hudson Attending Provider CORRINA DHALIWAL Attending Unavailable CORRINA DHALIWAL Consulting Unavailable REQUEST, NONE LISTED Primary Care Unavaila CORRINA Cuevas Admitting Unavailable FINA ., YNES MENDENHALL Consulting Unavailjanie JOHNSON ., DR SIMENTAL Admitting [...] NONE LISTED Primary Care Unavaila ble Spasic, BOARDINGHOUSE KEEPER-C Nataly E Primary Care Provider DO Mary Kay Cantu Attending Provider MD Jennie Smith Attending Provider CADE Ortiz Emergency Provider [phone] Spasic, BOARDINGHOUSE KEEPER-C Nataly E Attending Provider [facility] Primary Care Prov ider DO Radha Molina Attending Provider Spasic, BOARDINGHOUSE KEEPER-C Nataly E Primary Care Provider DO Mary Kay Cantu Attending Provider MD Jennie Smith Attending Provider CADE Ortiz Emergency Provider Spasic, BOARDINGHOUSE KEEPER-C Nataly E Attending Provider [facility] Primary Care Prov ider DO Radha Molina Attending Provider NO FAMILY, PHYSICIAN Primary Care Provider Unava ilable MD Ede Way Admit Provider MD Ede Way Attending Provider Spasic, BOARDINGHOUSE KEEPER-C Nataly E Primary Care Provider [phone] DO Mary Kay Cantu Attending Provider Spasic, BOARDINGHOUSE KEEPER-C Nataly E Attending Provider DO Radha Molina Attending Provider [facility] Primary Care Prov ider Spasic, BOARDINGHOUSE KEEPER-C Nataly E Attending Provider Spasic, BOARDINGHOUSE KEEPER-C Nataly E Primary Care Provider DO Carmelo Vinson Emergency Provider RANDALL Leon Emergency Provider Spasic, BOARDINGHOUSE KEEPER-C Nataly E Referring Provider CADE Arceo Racheal Attending Provider Spasic, Nataly E [...] Attending Unavailable Spasic, Nataly E Admitting Unavailable [facility] Services Primary Care U navailable Spasic, Nataly E Consulting Unavailable [place] - [facility], Tino Sommer Attending Unava ilable [place] - FHSTino Admitting Unava ilable Spasic, Nataly E Primary Care Unavailable Ede Way Admitting Unavailable Ede Way Attending Unavailable Spasic, Nataly E Primary Care Unavailable NatIndio marksa Admitting Unavailable Indio Cantua Attending Unavailable Spasic, Nataly E Primary Care Unavailable Rinkes, Radha Admitting Unavailable Rinkes, Radha Attending Unavailable Unallocated MD, Noms Provider Primary Care Provi emmanuel Tai Chapman MD Primary Care Provider [phone] CAMACHO HERNANDEZ Attending Unavailable KIM HAMILTON Attending Unavailable RADHA MOLINA Attending Unavailable RADHA MOLINA Referring Unavailable EDE WAY Referring Unavailable RADHA MOLINA Attending Unavailable RADHA MOLINA Referring Unavailable NI CARROLL Attending Unavailable CAMACHO HERNANDEZ Referring Unavailable TAI CHAPMAN Primary Care Unavailable CAMACHO HERNANDEZ Referring Unavailable TAI CHAPMAN Primary Care Unavailable Allergies Allergy Classification Reported Allergen(s) Allergy Type Date of Onset Reaction(s) Facility (1 source) 48700,00 Drug allergy (disorder) 07-01-2012 [facility] Repository Medications Current Medications Medication Drug Class(es) [...] 2023 12:00am azithromycin 250 mg oral tablet (8 sources) Macrolide Antimicrobial Start: 04-06-2024 azithromycin (Zithromax Z-Valencia) 250 MG tablet Indications: URI, acute As directed 6 tablet 04/06/2024 Active Start: 02-24-2018 azithromycin ( ZITHROMAX Z-VALENCIA) 250 mg tablet Take 2 tablets the first day then 1 tablet every day for 4 days. 6 tablet 02/24/2018 Active ferrous sulfate 325 mg delayed release oral tablet (16 sources) Start: 10-20-2023 take 325 mg by mouth once daily Ferrous Sulfate Active 325 MG PO Daily October 20, 2023 12:00am take 1 tablet by mouth at [facility] ferrous sulfate 325 (65 Fe) MG tablet Take 325 mg by mouth in the morning. Take with meals. Active 3 ml liraglutide 6 mg/ml pen [...] Start: 03-18-2023 take 1 capsule by mo [facility] once daily at mealtime venlafaxine XR (Effexor XR) 75 MG 24 hr capsule TAKE 1 CAPSULE BY MOUTH ONCE DAILY WITH FOOD 03/18/2023 Active Start: 06-23-2022 End: 11-19-2022 take 37.5 mg by mouth once daily at bedtime Venlafaxine Discontinued 37.5 MG PO Daily at bedtime June 23, 2022 12:00am November 19, 2022 12:21pm take 1 capsule by [facility] every twenty-four hours in the morning venlafaxine [...] by mouth every four hours Hydrocodone-Acetam inophen (Milroy) 5-325 mg tablet Discontinued 2 TAB PO [...] tablet Discontinued 1 TAB PO Twice daily 28 08November 15, 2017 12:00am November 22, 2017 12:01am [...] 20, 2017 1:01pm 168 hr ethinyl estradiol 0.22658 mg/hr / norelgestromin 0.95982 mg/hr transdermal system (20 sources) Progestin, Estrogen [...] 20, 2022 12:00am February 13, 2023 7:43pm [place]-3 Fatty Acids-Fish Oil (20 sources) Start: 06-23-2022 End: 11-19-2022 take 1 capsule by mouth once daily [place]-3 Fatty Acids-Fish Oil Discontinued 1 CAP PO Daily June 22, 2022 11:00pm November 19, 2022 11:22am Start: 06-23-2022 End: 11-19-2022 take 1 capsule by mouth once daily [place]-3 Fatty Acids-Fish Oil Discontinued 1 CAP PO Daily June 23, 2022 12:00am November 19, 2022 12:22pm Start: 06-23-2022 take 1 capsule by mo uth once daily [place]-3 Fatty Acids-Fish Oil Active 1 CAP PO Daily June 23, 2022 12:00am ondansetron 4 mg disintegrating oral tablet (20 sources) Serotonin-3 Receptor Antagonist Start: 02-27-2019 End: 05-10-2020 take 4 mg by mouth every eight hours Ondansetron Discontinued 4 MG PO Q8H 9 3 February 27, 2019 1:00am May 10, 2020 [...] 07, 2017 12:00am November 12, 2017 12:01am Ymsyanvc-Ytg-Rq-Fa () 1 mg Tablet (20 sources) Start: 11-19-2022 End: 02-13-2023 take 1 tablet by mouth once daily Qcwpobqv-Spv-Ft-Fa () 1 mg Tablet Discontinued 1 TAB PO Daily November 19, 2022 12:00am February 13, 2023 7:43pm Start: 11-19-2022 End: 02-13-2023 take 1 tablet by mouth once daily Xgljsubw-Prn-Ip-Fa () 1 mg Tablet Discontinued 1 TAB PO Daily November 18, 2022 11:00pm February 13, 2023 6:43pm Start: 11-19-2022 take 1 tablet by long th once daily Ejeeccti-Sch-Ea-Fa () 1 mg Tablet Active 1 TAB PO Daily November 18, 2022 11:00pm Start: 11-19-2022 take 1 tablet by long th once daily Dbutsche-San-Mc-Fa () 1 mg Tablet Active 1 TAB [...] Onset: 06-04-2022 Chronic Early or threatened labor (5 sources) labor without delivery, unspecified trimester; Translations: [ delivery following section] Onset: 01-21-2023 04-13-2024 Episodic Genitourinary symptoms and ill-defined conditions (1 source) Hematuria, unspecified; Translations: [Hematuria, unspecified] Onset: 10-04-2023 Episodic Headache; including migraine (1 source) Headache; including migraine; Translations: [HEADACHE UNSPECIFIED] Onset: 09-03-2021 Hemorrhage during ; abruptio placenta; placenta previa (1 source) Placenta previa Onset: 04-13-2024 Episodic Immunizations and screening for infectious disease (20 [...] conditions (not mental disorders or infectious disease) (3 sources) Patient encounter status; Translations: [Encounter for screening for diabetes mellitus] Onset: 04-13-2024 03-09-2024 Episodic Other upper respiratory infections (20 sources) Viral pharyngitis; Translations: [Acute pharyngitis, unspecified] 01-22-2019 Episodic Ovarian cyst (20 sources) Cyst of ovary; Translations: [Unspecified ovarian cyst, unspecified side] 06-01-2017 Episodic Previous (1 source) Maternal care for unspecified type scar from previous delivery; Translations: [Maternal care for unspecified type scar from previous delivery] Onset: 04-13-2024 Episodic Residual codes; unclassified (20 sources) Gestation [...] screening for Streptococcus B] Onset: 01-05-2023 Unclassified (12 sources) OB Reminders Onset: 09-02-2022 09-02-2022 Urinary [...] tolerance complicating ; childbirth; or the puerperium (15 sources) Abnormal glucose complicating ; Translations: [Gestational [...] TRI] Onset: 08-11-2021 Episodic Other complications of (19 sources) H/O: premature delivery; Translations: [Supervision of other high risk pregnancies, unspecified trimester] Onset: 06-25-2022 06-25-2022 Episodic Other complications of (12 sources) Finding related to ; Translations: [Other specified related conditions, third trimester] Onset: 06-25-2022 06-25-2022 Episodic Polyhydramnios and other problems of amniotic cavity (12 sources) Polyhydramnios with problem; Translations: [Polyhydramnios, third [...] Test Name Value Interpretation Reference Range Facility [facility] UA (CLEAN/CATCH) PUBLIC HEALTH NUTRITIONIST/ELINOR RO IF IND.on 04-14-2024 BILIRUBIN URINE Negative NEGATIVE [facility] BLOOD URINE Negative NEGATIVE [facility] Clarity (U) CLEAR CLEAR [facility] Color (U) LT. YELLOW YELLOW [facility] GLUCOSE URINE UA Negative NEGATIVE mg/dL [facility] Interpretation and review of laboratory results Abnormal [facility] Ketones Ql (U) Negative NEGATIVE mg/dL [facility] Leukocyte esterase Test strip Ql (U) Negative NEGATIVE [facility] NITRITE URINE Negative NEGATIVE [facility] pH (U) 6.5 [pH] 5.0 - 9.0 [facility] PROTEIN URINE Negative NEG/TRACE mg/dL [facility] SPECIFIC GRAVITY URINE <=1.005 Abnormal 1.005 - 1.025 [facility] URINE MICROSCOPIC INDICATED NO [facility] UROBILINOGEN URINE 0.2 EU/dL 0.2 - 1.0 EU/dL [facility] IGP,APTIMA HPV,AGE GDLNon AGE GDLN ACOG TESTING Note . [facility] Comment on above: TESTS RESULT FLAG UN ITS REF RANGE LAB Clinician Provided Cytology Information Source.............Cervix No. of containers..01 ThinPrep Vial Age Algo ACOG Rossana... FLAG LEGEND: L-Low Normal,H-High Normal,LL-Alert Low,HH-Alert High <-Panic Low,>-Panic High,A-Abnormal,AA-Critical Abnormal Performed at: 01 =G [facility] [address] [place] [address] Christina Chan MD, IGP, RFX APTIMA HPV ASCU Note . [facility] Comment on above: TESTS RESULT FLAG UN ITS REF RANGE LAB DIAGNOSIS: 02 NEGATIVE FOR INTRAEPITHELIAL LESION OR MALIGNANCY. Specimen adequacy: 02 Satisfactory for evaluation. No endocervical component is identified. Performed by: Dereje Kaufman, Biostatistician ([facility]) . 02 Note: Note 02 The Pap [...] <-Panic Low,>-Panic High,A-Abnormal,AA-Critical Abnormal Performed at: [address] [phone] Christina Chan MD, Performed at: =[facility] [id number] Nipping Machine Operator: Christina Chan MD, Phone: [phone] Performed at: [address] [id number] Nipping Machine Operator: Christina Chan MD, Phone: [phone] SPATULA-ALONE CERVIX [facility] RECURRENT VAGINITIS (HTRX)on 04-07-2024 ATOPOBIUM VAGINAE 0 [facility] ATOPOBIUM VAGINAE Not detected [facility] BVAB 2,3 (BACTERIAL VAGINOSIS ASSOCIATED BACTERIA 2, 3); MOBILUNCUS SPP 0 [facility] BVAB 2,3 (BACTERIAL VAGINOSIS ASSOCIATED BACTERIA 2, 3); MOBILUNCUS SPP Not detected [facility] CURT ALBICANS, PARAPSILOSIS, TROPICALIS 0 [facility] CURT ALBICANS, PARAPSILOSIS, TROPICALIS Not detected [facility] CURT GLABRATA 0 [facility] CURT GLABRATA Not detected [facility] CURT KRUSEI 0 [facility] CURT KRUSEI Not detected [facility] CHLAMYDIA TRACHOMATIS 0 [facility] CHLAMYDIA TRACHOMATIS Not detected N [facility] GARDNERELLA VAGINALIS 0 [facility] GARDNERELLA VAGINALIS Not detected N [facility] MEGASPHAERA (TYPES 1, 2) 0 [facility] MEGASPHAERA (TYPES 1, 2) Not detected [facility] MYCOPLASMA GENITALIUM 0 [facility] MYCOPLASMA GENITALIUM Not detected N [facility] NEISSERIA GONORRHOEAE 0 [facility] NEISSERIA GONORRHOEAE Not detected N [facility] TRICHOMONAS VAGINALIS 0 [facility] TRICHOMONAS VAGINALIS Not detected N [facility] Urinalysis macro (dipstick) panel (U)on 04-06-2024 Bilirubin, UA Negative Negative - 4(70) +++ mg/dL [facility] Blood, UA Negative Negative - 50 Isaac/mcL [facility] Clarity, UA Clear [facility] Color, UA Yellow [facility] Glucose, UA Negative Negative - 2000(110) ++++ mg/dL [facility] Interpretation and review of laboratory results Normal [facility] Ketones, UA Negative Negative - 160(16) ++++ mg/dL [facility] Leukocytes, UA Negative Negative - 500+++ Shreya/mcL [facility] Nitrite, UA Negative Negative - Positive [facility] pH, UA 8.5 5 - 9 [facility] Protein, UA Negative Negative - 2000(20) ++++ mg/dL [facility] Spec Grav, UA 1.02 1 - 1.03 [facility] Urobilinogen, UA 1.0 0.2 - 12 mg/dL [facility] ED Note - Physicianon 2024 ED Note - Physician [id number]#1.00OTGTI [facility] Rad - Other Radiology Report on 03-20-2024 Rad - Other Radiology Report [id number]#1.00OTGTI [facility] Rad - Other Radiology Report on 03-14-2024 Rad - Other Radiology Report [id number]#1.00OTGTIF [facility] US OB CERVICAL LENGTHon 02-16 [place] [address] Ultrasound Report Signed Patient: ROSETTE ALBA MR#: [id number] : 2000 Acct:[id number] Age/Sex: 23 / F ADM Date: 03/14/24 Loc: US Attending Dr: Camacho Hernandez D.O. Ordering Physician: Camacho Hernandez D.O. Date of Service: 03/14/24 Procedure(s): US OB cervical length Accession Number(s): [id number] cc: Camacho Hernandez D.O.; OBDULIA ONEIL [address] [address] Patient Name: ROSETTE ALBA MRN: [id number] date: 2000 Sex: F Assigned Patient Location: US Current Patient Location: US Accession/Order Number: [id number] Exam Date: 03/14/2024 09:32 Report Date: 03/14/2024 [...] Signed By: 03/14/24 1006 DD/ 1003 TD/TT: Bread Stacker: [facility] Radiology, Radiologi MD barry - 03/14/2024 [place] [address] Ultrasound Report Signed Patient: ROSETTE ALBA MR#: [id number] : 2000 Acct:[id number] Age/Sex: 23 / F ADM Date: 03/14/24 Loc: US Attending Dr: Camacho Hernandez D.O. Ordering Physician: Camacho Hernandez D.O. Date of Service: 03/14/24 Procedure(s): US OB cervical length Accession Number(s): [id number] cc: Camacho Henrandez D.O.; OBDULIA ONEIL [place] [address] Patient Name: ROSETTE ALBA MRN: [facility]:[id number] date: 2000 Sex: F Assigned Patient Location: US Current Patient Location: US Accession/Order Number: [id number] Exam Date: 03/14/2024 09:32 Report Date: 03/14/2024 [...] Signed By: 03/14/24 1006 DD/ 1003 TD/TT: Bread Stacker: [facility] Radiology Study observation (narrative) [facility] US OB CERVICAL LENGTHOrdered By: Radiologist Radiology on 03-14-2024 [facility] Work Phone: Urinalysis macro (dipstick) panel (U)on 03-09-2024 Bilirubin, UA Negative Negative - 4(70) +++ mg/dL [facility] Blood, UA Negative Negative - 50 Isaac/mcL [facility] Clarity, UA Clear [facility] Color, UA Yellow [facility] Glucose, UA Negative Negative - 2000(110) ++++ mg/dL [facility] Interpretation and review of laboratory results Normal [facility] Ketones, UA Negative Negative - 160(16) ++++ mg/dL [facility] Leukocytes, UA Negative Negative - 500+++ Shreya/mcL [facility] Nitrite, UA Negative Negative - Positive [facility] pH, UA 7.5 5 - 9 [facility] Protein, UA Negative Negative - 2000(20) ++++ mg/dL [facility] Spec Grav, UA 1.02 1 - 1.03 [facility] Urobilinogen, UA 1.0 0.2 - 12 mg/dL [facility] Free Cell DNAon 2024 [facility] BOX TESTon 02-25-2024 BOX TEST SENT OUT [facility] BOX1 [facility] BOX2 02/25/2024 [facility] BOX [facility] HCG ( test) Ql (U)o n 02-03-2024 Interpretation and review of laboratory results Abnormal [facility] Preg Test, Ur Positive Negative [facility] Rad - Ultrasound Reporton Rad - Ultrasound Report [id number]#1.00OTGTIF [facility] Urinalysis macro (dipstick) panel (U)on 02-03-2024 Bilirubin, UA Negative Negative - 4(70) +++ mg/dL [facility] Blood, UA Negative Negative - 50 Isaac/mcL [facility] Clarity, UA Clear [facility] Color, UA Yellow [facility] Glucose, UA Negative Negative - 1999(110) ++++ mg/dL [facility] Interpretation and review of laboratory results Abnormal [facility] Ketones, UA Negative Negative - 160(16) ++++ mg/dL [facility] Leukocytes, UA Negative Negative - 500+++ Shreya/mcL [facility] Nitrite, UA Negative Negative - Positive [facility] pH, UA 5.5 5 - 9 [facility] Protein, UA Positive Negative - 1999(20) ++++ mg/dL [facility] Comment on above: 100 Spec Grav, UA 1.03 1 - 1.03 [facility] Urobilinogen, UA 0.2 0.2 - 12 mg/dL [facility] Rad - Other Radiology Report on 01-07-2024 Rad - Other Radiology Report [id number]#1.00OTGTIFF [facility] Outside Recordson 12-14-2023 Outside Records [id number]#1.00OTGTIF [facility] Outside Records [id number]#1.00OTGTIF [facility] US liveron 10-07-2023 [facility] [place] [address] Ultrasound Report Signed Patient: Rosette Alba MR#: [id number] : 2000 Acct:[id number] Age/Sex: 23 / F ADM Date: 10/07/23 Loc: Room: [facility] Dr: Nataly Toure BOARDINGHOUSE KEEPER-C Ordering Provider: RONDA Reyes Date of Service: [...] Kirkland Jr., D.O.10/07/2023 11:25 AM Dictation Location: [place] [address] Tech: Marie Max Transcribed By: ANDREY 10/07/23 1125 Dictated By: Richard Kirkland Jr, DO 10/07/23 1123 Signed By: 10/07/23 1125 Normal [facility] US thyroidon 10-07-2023 thyroid [facility] [place] [address] Ultrasound Report Signed Patient: Rosette Alba MR#: [id number] : 2000 Acct:[id number] Age/Sex: 23 / F ADM Date: 10/07/23 Loc: Room: Type: [facility] Attending Dr: Nataly BOND Ordering Provider: RONDA [...] suggested. Impression dictated by: Richard Kirkland Jr., SorayaOIdania10/07/2023 11:26 AM Dictation Location: [place] [address] Tech: Marie Max Transcribed By: ANDREY 10/07/23 1126 Dictated By: Richard Kirkland Jr, DO 10/07/23 1125 Signed By: 10/07/23 1126 Normal [facility] XR KUBon 10-07-2023 XR KUB [facility] [place] [address] XRay Report Signed Patient: Rosette Alba MR#: [id number] : 2000 Acct:[id number] Age/Sex: 23 / F ADM Date: 10/07/23 Loc: Room: Type: [facility] Attending Dr: Nataly BOND Copies to: RONDA [...] Kirkland Jr., D.O.10/07/2023 8:50 AM Dictation Location: [place] [address] Transcribed By: ANDREY 10/07/23 0850 Dictated By: Richard Kirkland Jr, DO 10/07/23 0849 Signed By: 10/07/23 0850 Normal [facility] Bacteria [Presence] in Urine by AutomatedOrdered By: Carmelo Vinson on 10-04-2023 Bacteria Auto Ql (U) None seen [HPF] None Seen [facility] Bilirubin Test strip Ql (U)O rdered By: Carmelo Vinson on 10-04-2023 Bilirubin Ql (U) Negative Negative [facility] Color of Urine by AutoOrdere d By: Carmelo Beckmanynes on 10-04-2023 Color (U) Yellow Normal Yellow [facility] Comment on above: Order Comment: Name Collection Type:: Clean-Voided Midstream Performed By: #### A DDONUAPLUS, UHCG #### [place] [address] [place] Dipstick and Microscopicon 0 10-04-2023 Bacteria,Urine None Seen Normal None Seen [facility] Comment on above: Order Comment: Name Collection Type:: Clean-Voided Midstream Performed By: #### A DDONUAPLUS, UHCG #### [place] [address] [place] Bilirubin,Urine Negative Normal Negative [facility] Comment on above: Order Comment: Name Collection Type:: Clean-Voided Midstream Performed By: #### A DDONUAPLUS, UHCG #### [place] [address] [place] Glucose Ql (U) Normal Normal Normal [facility] Comment on above: Order Comment: Name Collection Type:: Clean-Voided Midstream Performed By: #### A DDONUAPLUS, UHCG #### [place] [address] [place] Hyaline Casts,Urine 0-8 Normal 0-8 [facility] Comment on above: Order Comment: Name Collection Type:: Clean-Voided Midstream Performed By: #### A DDONUAPLUS, UHCG #### [place] [address] [place] Mucus,Urine 4+ Critically abnormal [facility] Comment on above: Order Comment: Name Collection Type:: Clean-Voided Midstream Performed By: #### A DDONUAPLUS, UHCG #### [place] [id number] [place] Nitrite,Urine Negative Normal Negative [facility] Comment on above: Order Comment: Name Collection Type:: Clean-Voided Midstream Performed By: #### A DDONUAPLUS, UHCG #### [place] [address] [place] Occult Blood,Urine Negative Normal Negative [facility] Comment on above: Order Comment: Name Collection Type:: Clean-Voided Midstream Performed By: #### A DDONUAPLUS, UHCG #### [address] RBC,Urine 1-2 Normal 0-4 [facility] Comment on above: Order Comment: Name Collection Type:: Clean-Voided Midstream Performed By: #### A DDONUAPLUS, UHCG #### [address] Specificy [place],Urine 1.039 High 1.001-1.03 0 [facility] Comment on above: Order Comment: Name Collection Type:: Clean-Voided Midstream Performed By: #### A DDONUAPLUS, UHCG #### [address] Squamous Epithelial Cell,Urine 5-9 High 0-2 [facility] Comment on above: Order Comment: Name Collection Type:: Clean-Voided Midstream Performed By: #### A DDONUAPLUS, UHCG #### [address] Urobilinogen,Urine 2 mg/dL High Normal [facility] Comment on above: Order Comment: Name Collection Type:: Clean-Voided Midstream Performed By: #### A DDONUAPLUS, UHCG #### [place] [address] [place] WBC,Urine 3-4 Normal 0-4 [facility] Comment on above: Order Comment: Name Collection Type:: Clean-Voided Midstream Performed By: #### A DDONUAPLUS, UHCG #### [address] Epithelial cells.squamous [# /area] in Urine sediment by Automated countOrdered By: Carmelo Vinson on 10-04-2023 Epithelial cells.squamous Auto (Urine sed) [#/Area] 5-9 [HPF] High 0-2 [facility] Erythrocytes [#/area] in Uri ne sediment by Automated countOrdered By: Carmelo Vinson on 10-04-2023 RBC Auto (Urine sed) [#/Area] 1-2 [HPF] 0-4 [facility] Glucose [Mass/volume] in Uri ne by Test stripOrdered By: Carmelo Vinson on 10-04-2023 Glucose Test strip (U) [Mass/Vol] Normal mg/dL Normal [facility] HCG ( test) IA.rapi d Ql (U)Ordered By: PROVIDER TEMP on 10-04-2023 HCG ( test) Ql (U) Negative [facility] HCG,Urineon 10-04-2023 Beta HCG ( test) Ql (U) Negative Normal [facility] Comment on above: Order Comment: Name Collection Type:: Clean-Voided Midstream Result Comment: PERF ORMED BY: [place] [address] PATHOLOGIST HYDROGEOLOGY PROFESSOR ALLA OROZCO M.D. Performed By: #### A [facility] [place] #### [facility] [address] [place] [address] Hemoglobin Test strip Ql (U) Ordered By: Carmelo Vinson on 10-04-2023 Hemoglobin Ql (U) Negative Negative [facility] Hyaline casts [#/area] in Ur ine sediment by Automated countOrdered By: Carmelo Vinson on 10-04-2023 Hyaline casts Auto (Urine sed) [#/Area] 0-8 [LPF] 0-8 [facility] Ketones [Presence] in Urine by Test stripOrdered By: Carmelo Vinson on 10-04-2023 Ketones Ql (U) Trace High Negative [facility] Comment on above: Order Comment: Name Collection Type:: Clean-Voided Midstream Performed By: #### A DDONUAPLUS, UHCG #### [facility] [address] [place] [address] [place] Leukocyte esterase [Presence ] in Urine by Test stripOrdered By: Carmelo Vinson on 10-04-2023 Leukocyte esterase Test strip Ql (U) Negative Normal Negative [facility] Comment on above: Order Comment: Name Collection Type:: Clean-Voided Midstream Performed By: #### A VERNA GARCIA #### [address] Leukocytes [#/area] in Urine sediment by Automated countOrdered By: Carmelo Vinson on 10-04-2023 WBC Auto (Urine sed) [#/Area] 3-4 [HPF] 0-4 [facility] Mucus [Presence] in Urine by AutomatedOrdered By: Carmelo iVnson on 10-04-2023 Mucus Auto Ql (U) 4+ [LPF] Abnormal [facility] Nitrite Test strip Ql (U)Ord ered By: Carmelo Vinson on 10-04-2023 Nitrite Ql (U) Negative Negative [facility] Protein [Mass/volume] in Uri ne by Test stripOrdered By: Carmelo Vinson on 10-04-2023 Protein (U) [Mass/Vol] 30 mg/dL High Negative [facility] Comment on above: Order Comment: Name Collection Type:: Clean-Voided Midstream Performed By: #### A VERNA GARCIA #### [address] Specific gravity Test strip (U) [Rel density]Ordered By: Carmelo Vinson on 10-04-2023 Specific gravity (U) [Rel density] 1.039 High 1.001-1.03 0 [facility] Urine appearanceOrdered By: Carmelo Vinson on 10-04-2023 Appearance (U) Clear Normal Clear [facility] Comment on above: Order Comment: Name Collection Type:: Clean-Voided Midstream Performed By: #### A VERNA GARCIA #### [address] Urobilinogen Test strip (U) [Mass/Vol]Ordered By: Carmelo Vinson on 10-04-2023 Urobilinogen (U) [Mass/Vol] 2 mg/dL High Normal [facility] pH of Urine by Test stripOrd ered By: Carmelo Vinson on 10-04-2023 pH (U) 6.0 [pH] Normal 5.0-9.0 [facility] Comment on above: Order Comment: Name Collection Type:: Clean-Voided Midstream Performed By: #### A DDONUAPLUS, CG #### [facility] [address] [place] [address] [place] Alanine aminotransferase [En zymatic activity/volume] in Serum or PlasmaOrdered By: Nataly Toure on 09-30-2023 ALT [Catalytic activity/Vol] 14 U/L Normal 7-52 [facility] Comment on above: Order Comment: Reaso n for Exam Adenopathy Reason for Exam Iron deficiency Reason for Exam Hypothyroidism, unspecified type Performed By: #### C USTB #### [place] [address] [place] Albumin [Mass/volume] in Ser um or Plasma by Bromocresol green (BCG) dye binding methoOrdered By: Nataly Toure on 09-30-2023 Albumin BCG dye [Mass/Vol] 4.2 g/dL 3.5-5.7 [facility] Alkaline phosphatase [Enzyma tic activity/volume] in Serum or PlasmaOrdered By: Nataly Toure on 09-30-2023 ALP [Catalytic activity/Vol] 80 U/L Normal 34-104 [facility] Comment on above: Order Comment: Reaso n for Exam Adenopathy Reason for Exam Iron deficiency Reason for Exam Hypothyroidism, unspecified type Performed By: #### C USTB #### [facility] [address] [place] [address] [place] Aspartate aminotransferase [ Enzymatic activity/volume] in Serum or PlasmaOrdered By: Nataly Toure on 09-30-2023 AST [Catalytic activity/Vol] 10 U/L Low 13-39 [facility] Comment on above: Order Comment: Reaso n for Exam Adenopathy Reason for Exam Iron deficiency Reason for Exam Hypothyroidism, unspecified type Performed By: #### C USTB #### [place] [address] [place] Automated basophil %Ordered By: Nataly Toure on 09-30-2023 Basophils/100 WBC (Bld) 0.5 % Normal . [facility] Comment on above: Order Comment: Reaso n for Exam Adenopathy Performed By: #### C USTB #### [address] Automated basophil countOrde red By: Nataly Jerniganc on 09-30-2023 Basophils (Bld) [#/Vol] 0.0 10*3/uL Normal 0.0-0.2 [facility] Comment on above: Order Comment: Reaso n for Exam Adenopathy Result Comment: PERF ORMED BY: [place] [address] PATHOLOGIST HYDROGEOLOGY PROFESSOR ALLA OROZCO M.D. Performed By: #### C USTB #### [address] Automated blood monocyte cou ntOrdered By: Nataly Touer on 09-30-2023 Monocytes (Bld) [#/Vol] 0.7 10*3/uL Normal 0.0-0.8 [facility] Comment on above: Order Comment: Reaso n for Exam Adenopathy Performed By: #### C USTB #### [address] Automated eosinophil %Ordere d By: Nataly Jerniganc on 09-30-2023 Eosinophils/100 WBC (Bld) 0.4 % Normal . [facility] Comment on above: Order Comment: Reaso n for Exam Adenopathy Performed By: #### C USTB #### [address] Automated eosinophil countOr dered By: Nataly Jerniganc on 09-30-2023 Eosinophils (Bld) [#/Vol] 0.0 10*3/uL Normal 0.0-0.45 [facility] Comment on above: Order Comment: Reaso n for Exam Adenopathy Performed By: #### C USTB #### [address] Automated monocyte %Ordered By: Nataly Jerniganc on 09-30-2023 Monocytes/100 WBC (Bld) 8.0 % Normal . [facility] Comment on above: Order Comment: Reaso n for Exam Adenopathy Performed By: #### C USTB #### [facility] [address] [place] [address] [place] Automated neutrophil %Ordere d By: Nataly Junesic on 09-30-2023 Neutrophils/100 WBC (Bld) 58.7 % Normal . [facility] Comment on above: Order Comment: Reaso n for Exam Adenopathy Performed By: #### C USTB #### [address] Bilirubin.total [Mass/volume ] in Serum or PlasmaOrdered By: Nataly Jerniganc on 09-30-2023 Bilirubin [Mass/Vol] 0.3 mg/dL Normal 0.3-1.0 [facility] Comment on above: Order Comment: Reaso n for Exam Adenopathy Reason for Exam Iron deficiency Reason for Exam Hypothyroidism, unspecified type Performed By: #### C USTB #### [place] [address] [place] Calcium [Mass/volume] in Ser um or PlasmaOrdered By: Nataly Jerniganc on 09-30-2023 Calcium [Mass/Vol] 9.3 mg/dL Normal 8.6-10.3 [facility] Comment on above: Order Comment: Reaso n for Exam Adenopathy Reason for Exam Iron deficiency Reason for Exam Hypothyroidism, unspecified type Performed By: #### C USTB #### [place] [address] [place] Carbon dioxide, total [Moles /volume] in Serum or PlasmaOrdered By: Nataly Junesic on 09-30-2023 CO2 [Moles/Vol] 29.9 mmol/L Normal 21.0-31.0 [facility] Comment on above: Order Comment: Reaso n for Exam Adenopathy Reason for Exam Iron deficiency Reason for Exam Hypothyroidism, unspecified type Performed By: #### C USTB #### [place] [id number] [place] Chloride [Moles/volume] in S rosa or PlasmaOrdered By: Nataly Toure on 09-30-2023 Chloride [Moles/Vol] 103 mmol/L Normal 98-107 [facility] Comment on above: Order Comment: Reaso n for Exam Adenopathy Reason for Exam Iron deficiency Reason for Exam Hypothyroidism, unspecified type Performed By: #### C USTB #### [address] Complete Blood Count Auto Di ffon 09-30-2023 Mean Corpuscular HGB Conc 33.2 g/dL Normal 32.0-35.0 [facility] Comment on above: Order Comment: Reaso n for Exam Adenopathy Performed By: #### C USTB #### [address] NRBC% 0.1 /100{WBC} Normal 0-0.5 [facility] Comment on above: Order Comment: Reaso n for Exam Adenopathy Performed By: #### C USTB #### [address] Comprehensive Metabolic Pane ramakrishna 09-30-2023 Albumin [Mass/Vol] 4.2 g/dL Normal 3.5-5.7 [facility] Comment on above: Order Comment: Reaso n for Exam Adenopathy Reason for Exam Iron deficiency Reason for Exam Hypothyroidism, unspecified type Performed By: #### C USTB #### [address] GFR/1.73 sq M.predicted MDRD (S/P/Bld) [Vol rate/Area] mL/min/{1.73_m2} Normal [facility] Comment on above: Order Comment: Reaso n for Exam Adenopathy Reason for Exam Iron deficiency Reason for Exam Hypothyroidism, unspecified type Performed By: #### C USTB #### [address] Creatinine [Mass/volume] in Serum or PlasmaOrdered By: Nataly Toure on 09-30-2023 Creatinine [Mass/Vol] 0.73 mg/dL Normal 0.60-1.[address] [facility] Comment on above: Order Comment: Reaso n for Exam Adenopathy Reason for Exam Iron deficiency Reason for Exam Hypothyroidism, unspecified type Performed By: #### C USTB #### [address] D-Dimer High Sensitivityon 0 - D-Dimer High Sensitivity < 200 Normal 0-243 [facility] Comment on above: Order [...] coagulation studies. Please contact the laboratory at [phone] for redraw instructions. PERFORMED BY: [place] [address] PATHOLOGIST HYDROGEOLOGY PROFESSOR ALLA OROZCO M.D. Performed By: #### G TT3 #### [address] Erythrocyte distribution wid th [Ratio] by Automated countOrdered By: Nataly Toure on 09-30-2023 Erythrocyte distribution width (RBC) [Ratio] 15.0 % Normal 11.9-15.3 [facility] Comment on above: Order Comment: Reaso n for Exam Adenopathy Performed By: #### C USTB #### [address] Erythrocytes [#/volume] in B lood by Automated countOrdered By: Nataly Toure on 09-30-2023 RBC (Bld) [#/Vol] 4.79 10*6/uL Normal 3.60-5.00 [facility] Comment on above: Order Comment: Reaso n for Exam Adenopathy Performed By: #### C USTB #### [facility] [address] Fibrin D-dimer [Presence] in Platelet poor plasma by Latex agglutinationOrdered By: Nataly Toure on 09-30-2023 Fibrin D-dimer LA Ql (PPP) < 200 ng/mL 0-243 [facility] Comment on above: The reference range for [...] coagulation studies. Please contact the laboratory at [phone] for redraw instructions. Glucose [Mass/volume] in Ser um or PlasmaOrdered By: Nataly Toure on 09-30-2023 Glucose [Mass/Vol] 75 mg/dL Normal 70-100 [facility] Comment on above: ADA recommended refe rence rangeRandom Glucose Reference Range is dependent on time and content of last meal. Glucose of more than 200 mg/dL in a nonstressed, ambulatory subject supports the diagnosis of Diabetes Mellitus. Order Comment: Reaso n for Exam Adenopathy Reason for Exam Iron deficiency Reason for Exam Hypothyroidism, unspecified type Result Comment: Kimberly om Glucose Reference Range is dependent on time and content of last meal. Glucose of more than 200 mg/dL in a nonstressed, ambulatory subject supports the diagnosis of Diabetes Mellitus. ADA recommended reference range Performed By: #### C USTB #### [facility] [address] [place] [id number] [facility] Hematocrit [Volume Fraction] of Blood by Automated countOrdered By: Nataly Toure on 09-30-2023 Hematocrit (Bld) [Volume fraction] 37.9 % Normal 34.0-46.4 [facility] Comment on above: Order Comment: Reaso n for Exam Adenopathy Performed By: #### C USTB #### [facility] [address] [place], [place] [id number] [facility] Hemoglobin [Mass/volume] in BloodOrdered By: Nataly Jerniganc on 09-30-2023 Hemoglobin (Bld) [Mass/Vol] 12.6 g/dL Normal 11.8-15.4 [facility] Comment on above: Order Comment: Reaso n for Exam Adenopathy Performed By: #### C USTB #### [place] [id number] [facility] Iron [Mass/volume] in Serum or PlasmaOrdered By: Nataly Junesic on 09-30-2023 Iron [Mass/Vol] 43 ug/dL Low 50-212 [facility] Comment on above: Order Comment: Reaso n for Exam Adenopathy Reason for Exam Iron deficiency Reason for Exam Hypothyroidism, unspecified type Performed By: #### G TT3 #### [facility] [address] [place], [place] [id number] [place] Iron and TIBC Profileon 09-15 % Iron Saturation 10.6 % Low 20-50 [facility] Comment on above: Order Comment: Reaso n for Exam Adenopathy Reason for Exam Iron deficiency Reason for Exam Hypothyroidism, unspecified type Performed By: #### G TT3 #### [facility] [address] [place], [place] [id number] [place] Total Iron Binding Capacity 406 ug/dL Normal 255-450 [facility] Comment on above: Order Comment: Reaso n for Exam Adenopathy Reason for Exam Iron deficiency Reason for Exam Hypothyroidism, unspecified type Performed By: #### G TT3 #### [place] [id number] [place] Iron binding capacity [Mass/ volume] in Serum or PlasmaOrdered By: Nataly Junesic on 09-30-2023 Iron binding capacity [Mass/Vol] 406 ug/dL 255-450 [facility] Iron saturation [Mass Fracti on] in Serum or PlasmaOrdered By: Nataly Toure on 09-30-2023 Iron saturation [Mass fraction] 10.6 % Low 20-50 [facility] Leukocytes [#/volume] correc kee for nucleated erythrocytes in Blood by Automated counOrdered By: Nataly Toure on 09-30-2023 WBC corrected for nucl RBC Auto (Bld) [#/Vol] 8.2 10*3/uL 3.8-11.6 [facility] Leukocytes [#/volume] in Blo od by Automated countOrdered By: Nataly Toure on 09-30-2023 WBC (Bld) [#/Vol] 8.2 10*3/uL Normal 3.8-11.6 [facility] Comment on above: Order Comment: Reaso n for Exam Adenopathy Performed By: #### C USTB #### [facility] [address] [place] [address] [place] Lymphocytes [#/volume] in Bl ood by Automated countOrdered By: Nataly Toure on 09-30-2023 Lymphocytes (Bld) [#/Vol] 2.7 10*3/uL Normal 1.00-4.8 [facility] Comment on above: Order Comment: Reaso n for Exam Adenopathy Performed By: #### C USTB #### [facility] [address] [place], [place] [id number] [place] Lymphocytes/100 leukocytes i n Blood by Automated countOrdered By: Nataly Toure on 09-30-2023 Lymphocytes/100 WBC (Bld) 32.4 % Normal . [facility] Comment on above: Order Comment: Reaso n for Exam Adenopathy Performed By: #### C USTB #### [facility] [address] [place] [id number] [place] MCH [Entitic mass] by Automa kee countOrdered By: Nataly Toure on 09-30-2023 MCH (RBC) [Entitic mass] 26.3 pg Normal 24.7-34.3 [facility] Comment on above: Order Comment: Reaso n for Exam Adenopathy Performed By: #### C USTB #### [facility] [address] [place] [address] MCHC Auto (RBC) [Mass/Vol]Or dered By: Nataly Toure on 09-30-2023 MCHC (RBC) [Mass/Vol] 33.2 g/dL 32.0-35.[address] [facility] MCV [Entitic volume] by Auto mated countOrdered By: Nataly Toure on 09-30-2023 MCV (RBC) [Entitic vol] 79.1 fL Low 80-100 [facility] Comment on above: Order Comment: Reaso n for Exam Adenopathy Performed By: #### C USTB #### [address] Neutrophils [#/volume] in Bl ood by Automated countOrdered By: Nataly Toure on 09-30-2023 Neutrophils (Bld) [#/Vol] 4.8 10*3/uL Normal 1.8-7.7 [facility] Comment on above: Order Comment: Reaso n for Exam Adenopathy Performed By: #### C USTB #### [facility] [address] [place] [address] No Panel InformationOrdered By: Nataly Toure on 09-30-2023 Estimated GFR (CKD-EPI) > 60.0 mL/Min [facility] Creatinine Clearance (Chem N/A [facility] Nucleated erythrocytes [Pres ence] in Blood by Automated countOrdered By: Nataly Toure on 09-30-2023 Nucleated RBC Auto Ql (Bld) 0.1 /100{WBC} 0-0.5 [facility] Platelet mean volume [Entiti c volume] in Blood by Automated countOrdered By: Nataly Toure on 09-30-2023 Platelet mean volume (Bld) [Entitic vol] 9.2 fL Normal 6.3-10.7 [facility] Comment on above: Order Comment: Reaso n for Exam Adenopathy Performed By: #### C USTB #### [facility] [address] [place] [address] [place] Platelets [#/volume] in Bloo d by Automated countOrdered By: Nataly Toure on 09-30-2023 Platelets (Bld) [#/Vol] 246 10*3/uL Normal 150-450 [facility] Comment on above: Order Comment: Reaso n for Exam Adenopathy Performed By: #### C USTB #### [address] Potassium [Moles/volume] in Serum or PlasmaOrdered By: Nataly Toure on 09-30-2023 Potassium [Moles/Vol] 3.9 mmol/L Normal 3.5-5.[address] [facility] Comment on above: Order Comment: Reaso n for Exam Adenopathy Reason for Exam Iron deficiency Reason for Exam Hypothyroidism, unspecified type Performed By: #### C USTB #### [address] Protein [Mass/volume] in Ser um or PlasmaOrdered By: Nataly Toure on 09-30-2023 Protein [Mass/Vol] 7.0 g/dL Normal 6.4-8.9 [facility] Comment on above: Order Comment: Reaso n for Exam Adenopathy Reason for Exam Iron deficiency Reason for Exam Hypothyroidism, unspecified type Performed By: #### C USTB #### [address] Serum globulin measurement b y calculation (mass/volume)Ordered By: Nataly Toure on 09-30-2023 Globulin (S) [Mass/Vol] 2.8 g/dL [facility] Comment on above: Order Comment: Reaso n for Exam Adenopathy Reason for Exam Iron deficiency Reason for Exam Hypothyroidism, unspecified type Performed By: #### C USTB #### [facility] [address] [place] [address] [place] Serum or plasma albumin/glob ulin mass ratioOrdered By: Nataly Toure on 09-30-2023 Albumin/Globulin [Mass ratio] 1.5 {ratio} [facility] Comment on above: Order Comment: Reaso n for Exam Adenopathy Reason for Exam Iron deficiency Reason for Exam Hypothyroidism, unspecified type Performed By: #### C USTB #### [facility] [address] [place] [address] Serum or plasma anion gap de terminationOrdered By: Nataly Toure on 09-30-2023 Anion gap [Moles/Vol] 11.0 mmol/L Normal 6.0-15.0 [facility] Comment on above: Order Comment: Reaso n for Exam Adenopathy Reason for Exam Iron deficiency Reason for Exam Hypothyroidism, unspecified type Performed By: #### C USTB #### [facility] [address] [place] [address] Sodium [Moles/volume] in Ser um or PlasmaOrdered By: Nataly Toure on 09-30-2023 Sodium [Moles/Vol] 140 mmol/L Normal 136-145 [facility] Comment on above: Order Comment: Reaso n for Exam Adenopathy Reason for Exam Iron deficiency Reason for Exam Hypothyroidism, unspecified type Performed By: #### C USTB #### [facility] [address] [place] [address] Thyroid Stim Hormone w/Rflxo n 09-30-2023 Thyroid Stim Hormone w/Rflx 4.99 u[iU]/mL Normal 0.45-5.33 [facility] Comment on above: Order Comment: Reaso n for Exam Adenopathy Reason for Exam Iron deficiency Reason for Exam Hypothyroidism, unspecified type Result Comment: PERF ORMED BY: [place] [address] PATHOLOGIST HYDROGEOLOGY PROFESSOR ALLA OROZCO M.D. Performed By: #### G TT3 #### [address] Thyrotropin [Units/volume] i n Serum or PlasmaOrdered By: Nataly Toure on 09-30-2023 TSH Qn 4.99 m[IU]/L 0.45-5.33 [facility] Transferrin [Mass/volume] in Serum or PlasmaOrdered By: Nataly Toure on 09-30-2023 Transferrin [Mass/Vol] 290 mg/dL Normal 203-362 [facility] Comment on above: Order Comment: Reaso n for Exam Adenopathy Reason for Exam Iron deficiency Reason for Exam Hypothyroidism, unspecified type Performed By: #### G TT3 #### [facility] [address] Urea nitrogen [Mass/volume] in Serum or PlasmaOrdered By: Nataly Toure on 09-30-2023 Urea nitrogen [Mass/Vol] 23 mg/dL Normal 7-25 [facility] Comment on above: Order Comment: Reaso n for Exam Adenopathy Reason for Exam Iron deficiency Reason for Exam Hypothyroidism, unspecified type Performed By: #### C USTB #### [facility] [address] lumbar spine wo conon CT lumbar spine wo con [facility] [place] [address] [place] [address] CT Scan Report Signed Patient: Rosette Alba MR#: [id number] : 2000 Acct:[id number] Age/Sex: 23 / F ADM Date: 09/26/23 Loc: ER Room: Type: [facility] ER Attending Dr: Copies to: Devon [...] Deborah Vazquez M.D.09/27/2023 8:13 AM Dictation Location: [place] [address] Transcribed By: ANDREY 09/27/23812 Dictated By: Deborah Vazquez MD 09/27/23803 Signed By: 09/27/23812 Normal [facility] Bacteria [Presence] in Urine by AutomatedOrdered By: Devon Leon on 09-26-2023 Bacteria Auto Ql (U) Rare [HPF] None Seen [facility] Bilirubin Test strip Ql (U)O rdered By: Devon Leon on 09-26-2023 Bilirubin Ql (U) Negative Negative [facility] Color of Urine by AutoOrdere d By: Devon Leon on 09-26-2023 Color (U) Light-yellow Normal Yellow [facility] Comment on above: Order Comment: Name Collection Type:: Clean-Voided Midstream Performed By: #### A DDONUAPLUS, CUU #### [facility] [address] [place] [address] [place] Dipstick and Microscopicon 0 09-26-2023 Bacteria,Urine Rare Normal None Seen [facility] Comment on above: Order Comment: Name Collection Type:: Clean-Voided Midstream Performed By: #### A DDONUAPLUS, CUU #### [facility] [address] [place] [id number] [place] Bilirubin,Urine Negative Normal Negative [facility] Comment on above: Order Comment: Name Collection Type:: Clean-Voided Midstream Performed By: #### A DDONUAPLUS, CUU #### [address] Glucose Ql (U) Normal Normal Normal [facility] Comment on above: Order Comment: Name Collection Type:: Clean-Voided Midstream Performed By: #### A DDONUAPLUS, CUU #### [place] [address] [place] Hyaline Casts,Urine None Normal 0-8 [facility] Comment on above: Order Comment: Name Collection Type:: Clean-Voided Midstream Performed By: #### A DDONUAPLUS, CUU #### [place] [address] [place] Mucus,Urine 2+ Critically abnormal [facility] Comment on above: Order Comment: Name Collection Type:: Clean-Voided Midstream Performed By: #### A DDONUAPLUS, CUU #### [place] [address] [place] Nitrite,Urine Negative Normal Negative [facility] Comment on above: Order Comment: Name Collection Type:: Clean-Voided Midstream Performed By: #### A DDONUAPLUS, CUU #### [place] [address] [place] Occult Blood,Urine 2+ High Negative [facility] Comment on above: Order Comment: Name Collection Type:: Clean-Voided Midstream Result Comment: PERF ORMED BY: [place] [address] PATHOLOGIST HYDROGEOLOGY PROFESSOR ALLA OROZCO M.D. Performed By: #### A DDONUAPLUS, CUU #### [place] [address] [place] Protein,Urine Trace High Negative [facility] Comment on above: Order Comment: Name Collection Type:: Clean-Voided Midstream Performed By: #### A DDONUAPLUS, CUU #### [place] [address] [place] RBC,Urine 3-4 Normal 0-4 [facility] Comment on above: Order Comment: Name Collection Type:: Clean-Voided Midstream Performed By: #### A DDONUAPLUS, CUU #### [address] Specificy [place],Urine 1.030 Normal 1.001-1.03 0 [facility] Comment on above: Order Comment: Name Collection Type:: Clean-Voided Midstream Performed By: #### A DDONUAPLUS, CUU #### [place] [address] [place] Sperm,Urine 5-9 High 0-2 [facility] Comment on above: Order Comment: Name Collection Type:: Clean-Voided Midstream Result Comment: PERF ORMED BY: [place] [address] PATHOLOGIST HYDROGEOLOGY PROFESSOR ALLA OROZCO M.D. Performed By: #### A DDONUAPLUS, CUU #### [address] Squamous Epithelial Cell,Urine 5-9 High 0-2 [facility] Comment on above: Order Comment: Name Collection Type:: Clean-Voided Midstream Performed By: #### A DDONUAPLUS, CUU #### [address] Urobilinogen,Urine Normal Normal Normal [facility] Comment on above: Order Comment: Name Collection Type:: Clean-Voided Midstream Performed By: #### A DDONUAPLUS, CUU #### [place] [address] [place] WBC,Urine 5-9 High 0-4 [facility] Comment on above: Order Comment: Name Collection Type:: Clean-Voided Midstream Performed By: #### A DDONUAPLUS, CUU #### [address] Epithelial cells.squamous [# /area] in Urine sediment by Automated countOrdered By: Devon Leon on 09-26-2023 Epithelial cells.squamous Auto (Urine sed) [#/Area] 5-9 [HPF] High 0-2 [facility] Erythrocytes [#/area] in Uri ne sediment by Automated countOrdered By: Devon Leon on 09-26-2023 RBC Auto (Urine sed) [#/Area] 3-4 [HPF] 0-4 [facility] Glucose [Mass/volume] in Uri ne by Test stripOrdered By: Devon Leon on 09-26-2023 Glucose Test strip (U) [Mass/Vol] Normal mg/dL Normal [facility] Hemoglobin Test strip Ql (U) Ordered By: Devon Leon on 09-26-2023 Hemoglobin Ql (U) 2+ High Negative [facility] Hyaline casts [#/area] in Ur ine sediment by Automated countOrdered By: Devon Leon on 09-26-2023 Hyaline casts Auto (Urine sed) [#/Area] None [LPF] 0-8 [facility] Ketones [Presence] in Urine by Test stripOrdered By: Devon Leon on 09-26-2023 Ketones Ql (U) Negative Normal Negative [facility] Comment on above: Order Comment: Name Collection Type:: Clean-Voided Midstream Performed By: #### A DDONUAPLUS, CUU #### [facility] [address] [place] [address] [place] Leukocyte esterase [Presence ] in Urine by Test stripOrdered By: Devon Leon on 09-26-2023 Leukocyte esterase Test strip Ql (U) 2+ High Negative [facility] Comment on above: Order Comment: Name Collection Type:: Clean-Voided Midstream Performed By: #### A DDONUAPLUS, CUU #### [facility] [address] [place] [address] [place] Leukocytes [#/area] in Urine sediment by Automated countOrdered By: Devon Leon on 09-26-2023 WBC Auto (Urine sed) [#/Area] 5-9 [HPF] High 0-4 [facility] Mucus [Presence] in Urine by AutomatedOrdered By: Devon Leon on 09-26-2023 Mucus Auto Ql (U) 2+ [LPF] Abnormal [facility] Nitrite Test strip Ql (U)Ord ered By: Devon Leon on 09-26-2023 Nitrite Ql (U) Negative Negative [facility] Protein Test strip (U) [Mass /Vol]Ordered By: Devon Leon on 09-26-2023 Protein (U) [Mass/Vol] Trace mg/dL High Negative [facility] Specific gravity Test strip (U) [Rel density]Ordered By: Devon Leon on 09-26-2023 Specific gravity (U) [Rel density] 1.030 1.001-1.03 0 [facility] Spermatozoa [#/area] in Urin e sediment by Automated countOrdered By: Devon Leon on 09-26-2023 Spermatozoa Auto (Urine sed) [#/Area] 5-9 [HPF] High 0-2 [facility] Urine Cultureon 09-26-2023 Bacteria identified Cx Nom (U) ORGANISM: Strep agalactiae - (group b) (O:STRAGA) Novelty Count 75,000 PERFORMED BY: [place] [address] PATHOLOGIST HYDROGEOLOGY PROFESSOR ALLA OROZCO M.D. Normal [facility] Comment on above: Performed By: #### A DDONUAPLUS, CUU #### [facility] [address] [place] [address] Urine appearanceOrdered By: Devon Leon on 09-26-2023 Appearance (U) Clear Normal Clear [facility] Comment on above: Order Comment: Name Collection Type:: Clean-Voided Midstream Performed By: #### A DDONUAPLUS, CUU #### [facility] [address] [place] [address] Urine culture routineOrdered By: Devon Leon on 09-26-2023 Bacteria identified Cx Nom (U) Strep agalactiae - (group b) Abnormal [facility] Urobilinogen Test strip (U) [Mass/Vol]Ordered By: Devon Leon on 09-26-2023 Urobilinogen (U) [Mass/Vol] Normal mg/dL Normal [facility] pH of Urine by Test stripOrd ered By: Devon Leon on 09-26-2023 pH (U) 6.0 [pH] Normal 5.0-9.0 [facility] Comment on above: Order Comment: Name Collection Type:: Clean-Voided Midstream Performed By: #### A DDONUAPLUS, CUU #### [facility] [address] [place] [id number] [place] Alanine aminotransferase [En zymatic activity/volume] in Serum or PlasmaOrdered By: Nataly Toure on 08-03-2023 ALT [Catalytic activity/Vol] 14 U/L Normal 7-52 [facility] Comment on above: Order Comment: Reaso n for Exam Hypothyroidism, unspecified type;High blood triglycerides Reason for Exam Iron deficiency Reason for Exam High blood triglycerides Reason for Exam Hypothyroidism, unspecified type Performed By: #### G TT3 #### [facility] [address] [place] [id number] [place] Albumin [Mass/volume] in Ser um or Plasma by Bromocresol green (BCG) dye binding methoOrdered By: Nataly Toure on 08-03-2023 Albumin BCG dye [Mass/Vol] 4.4 g/dL 3.5-5.7 [facility] Alkaline phosphatase [Enzyma tic activity/volume] in Serum or PlasmaOrdered By: Nataly Toure on 08-03-2023 ALP [Catalytic activity/Vol] 85 U/L Normal 34-104 [facility] Comment on above: Order Comment: Reaso n for Exam Hypothyroidism, unspecified type;High blood triglycerides Reason for Exam Iron deficiency Reason for Exam High blood triglycerides Reason for Exam Hypothyroidism, unspecified type Performed By: #### G TT3 #### [facility] [address] [place] [id number] [place] Aspartate aminotransferase [ Enzymatic activity/volume] in Serum or PlasmaOrdered By: Nataly Toure on 08-03-2023 AST [Catalytic activity/Vol] 13 U/L Normal 13-39 [facility] Comment on above: Order Comment: Reaso n for Exam Hypothyroidism, unspecified type;High blood triglycerides Reason for Exam Iron deficiency Reason for Exam High blood triglycerides Reason for Exam Hypothyroidism, unspecified type Performed By: #### G TT3 #### [facility] [address] [place] [id number] [place] Automated basophil %Ordered By: Nataly Toure on 08-03-2023 Basophils/100 WBC (Bld) 0.4 % Normal . [facility] Comment on above: Order Comment: Reaso n for Exam Iron deficiency Performed By: #### G TT3 #### [facility] [address] [place] [address] Automated basophil countOrde red By: Nataly Toure on 08-03-2023 Basophils (Bld) [#/Vol] 0.0 10*3/uL Normal 0.0-0.2 [facility] Comment on above: Order Comment: Reaso n for Exam Iron deficiency Result Comment: PERF ORMED BY: [place] [address] PATHOLOGIST HYDROGEOLOGY PROFESSOR ALLA OROZCO M.D. Performed By: #### G TT3 #### [address] Automated blood monocyte cou ntOrdered By: Nataly Toure on 08-03-2023 Monocytes (Bld) [#/Vol] 0.4 10*3/uL Normal 0.0-0.8 [facility] Comment on above: Order Comment: Reaso n for Exam Iron deficiency Performed By: #### G TT3 #### [address] Automated eosinophil %Ordere d By: Nataly Toure on 08-03-2023 Eosinophils/100 WBC (Bld) 0.5 % Normal . [facility] Comment on above: Order Comment: Reaso n for Exam Iron deficiency Performed By: #### G TT3 #### [facility] [address] [place] [address] Automated eosinophil countOr dered By: Nataly Toure on 08-03-2023 Eosinophils (Bld) [#/Vol] 0.0 10*3/uL Normal 0.0-0.45 [facility] Comment on above: Order Comment: Reaso n for Exam Iron deficiency Performed By: #### G TT3 #### [address] Automated monocyte %Ordered By: Nataly Toure on 08-03-2023 Monocytes/100 WBC (Bld) 5.4 % Normal . [facility] Comment on above: Order Comment: Reaso n for Exam Iron deficiency Performed By: #### G TT3 #### [facility] [address] Automated neutrophil %Ordere d By: Nataly Toure on 08-03-2023 Neutrophils/100 WBC (Bld) 70.9 % Normal . [facility] Comment on above: Order Comment: Reaso n for Exam Iron deficiency Performed By: #### G TT3 #### [facility] [address] Bilirubin.total [Mass/volume ] in Serum or PlasmaOrdered By: Nataly Toure on 08-03-2023 Bilirubin [Mass/Vol] 0.5 mg/dL Normal 0.3-1.0 [facility] Comment on above: Order Comment: Reaso n for Exam Hypothyroidism, unspecified type;High blood triglycerides Reason for Exam Iron deficiency Reason for Exam High blood triglycerides Reason for Exam Hypothyroidism, unspecified type Performed By: #### G TT3 #### [facility] [address] Calcium [Mass/volume] in Ser um or PlasmaOrdered By: Nataly Toure on 08-03-2023 Calcium [Mass/Vol] 9.5 mg/dL Normal 8.6-10.3 [facility] Comment on above: Order Comment: Reaso n for Exam Hypothyroidism, unspecified type;High blood triglycerides Reason for Exam Iron deficiency Reason for Exam High blood triglycerides Reason for Exam Hypothyroidism, unspecified type Performed By: #### G TT3 #### [facility] [address] Carbon dioxide, total [Moles /volume] in Serum or PlasmaOrdered By: Nataly Toure on 08-03-2023 CO2 [Moles/Vol] 27.2 mmol/L Normal 21.0-31.0 [facility] Comment on above: Order Comment: Reaso n for Exam Hypothyroidism, unspecified type;High blood triglycerides Reason for Exam Iron deficiency Reason for Exam High blood triglycerides Reason for Exam Hypothyroidism, unspecified type Performed By: #### G TT3 #### [facility] [address] [place] [address] [place] Chloride [Moles/volume] in S rosa or PlasmaOrdered By: Nataly Toure on 08-03-2023 Chloride [Moles/Vol] 105 mmol/L Normal 98-107 [facility] Comment on above: Order Comment: Reaso n for Exam Hypothyroidism, unspecified type;High blood triglycerides Reason for Exam Iron deficiency Reason for Exam High blood triglycerides Reason for Exam Hypothyroidism, unspecified type Performed By: #### G TT3 #### [facility] [address] [place] [id number] [place] Cholesterol [Mass/volume] in Serum or PlasmaOrdered By: Nataly Toure on 08-03-2023 Cholesterol [Mass/Vol] 159 mg/dL Normal 140-200 [facility] Comment on above: Chol less [...] risk Performed By: #### G TT3 #### [facility] [address] [place] [address] [place] Cholesterol in LDL Calc [Mas s/Vol]Ordered By: Nataly Toure on 08-03-2023 Cholesterol in LDL [Mass/Vol] 82 mg/dL 0-100 [facility] Comment on above: LDL ATP III CLASSIFI CATIONLDL less than 100 mg/dL OptimalLDL 100-129 mg/dL Near or above optimalLDL 130-159 mg/dL Borderline highLDL 160-189 mg/dL HighLDL greater than 189 mg/dL Very high Cholesterol in VLDL Calc [Ma ss/Vol]Ordered By: Nataly Toure on 08-03-2023 Cholesterol in VLDL [Mass/Vol] 28 mg/dL [facility] Complete Blood Count Auto Di ffon 08-03-2023 Mean Corpuscular HGB Conc 33.1 g/dL Normal 32.0-35.0 [facility] Comment on above: Order Comment: Reaso n for Exam Iron deficiency Performed By: #### G TT3 #### [address] NRBC% 0.2 /100{WBC} Normal 0-0.5 [facility] Comment on above: Order Comment: Reaso n for Exam Iron deficiency Performed By: #### G TT3 #### [address] Comprehensive Metabolic Pane ramakrishna 08-03-2023 Albumin [Mass/Vol] 4.4 g/dL Normal 3.5-5.7 [facility] Comment on above: Order Comment: Reaso n for Exam Hypothyroidism, unspecified type;High blood triglycerides Reason for Exam Iron deficiency Reason for Exam High blood triglycerides Reason for Exam Hypothyroidism, unspecified type Performed By: #### G TT3 #### [address] GFR/1.73 sq M.predicted MDRD (S/P/Bld) [Vol rate/Area] mL/min/{1.73_m2} Normal [facility] Comment on above: Order Comment: Reaso n for Exam Hypothyroidism, unspecified type;High blood triglycerides Reason for Exam Iron deficiency Reason for Exam High blood triglycerides Reason for Exam Hypothyroidism, unspecified type Performed By: #### G TT3 #### [address] Creatinine [Mass/volume] in Serum or PlasmaOrdered By: Nataly Toure on 08-03-2023 Creatinine [Mass/Vol] 0.78 mg/dL Normal 0.60-1.[address] [facility] Comment on above: Order Comment: Reaso n for Exam Hypothyroidism, unspecified type;High blood triglycerides Reason for Exam Iron deficiency Reason for Exam High blood triglycerides Reason for Exam Hypothyroidism, unspecified type Performed By: #### G TT3 #### [facility] [address] [place] [address] Erythrocyte distribution wid th [Ratio] by Automated countOrdered By: Nataly Toure on 08-03-2023 Erythrocyte distribution width (RBC) [Ratio] 14.3 % Normal 11.9-15.3 [facility] Comment on above: Order Comment: Reaso n for Exam Iron deficiency Performed By: #### G TT3 #### [facility] [address] [place] [address] [place] Erythrocytes [#/volume] in B lood by Automated countOrdered By: Nataly Toure on 08-03-2023 RBC (Bld) [#/Vol] 4.72 10*6/uL Normal 3.60-5.00 [facility] Comment on above: Order Comment: Reaso n for Exam Iron deficiency Performed By: #### G TT3 #### [facility] [address] [place] [address] [place] Glucose [Mass/volume] in Ser um or PlasmaOrdered By: Nataly Toure on 08-03-2023 Glucose [Mass/Vol] 82 mg/dL Normal 70-100 [facility] Comment on above: ADA recommended [...] for Exam Hypothyroidism, unspecified type Result Comment: Kimberly om Glucose Reference Range is dependent on time and content of last meal. Glucose of more than 200 mg/dL in a nonstressed, ambulatory subject supports the diagnosis of Diabetes Mellitus. ADA recommended reference range Performed By: #### G TT3 #### [facility] [address] [place] [address] [place] Hematocrit [Volume Fraction] of Blood by Automated countOrdered By: Nataly Toure on 08-03-2023 Hematocrit (Bld) [Volume fraction] 36.8 % Normal 34.0-46.4 [facility] Comment on above: Order Comment: Reaso n for Exam Iron deficiency Performed By: #### G TT3 #### [facility] [address] [place] [address] [place] Hemoglobin [Mass/volume] in BloodOrdered By: Nataly Toure on 08-03-2023 Hemoglobin (Bld) [Mass/Vol] 12.2 g/dL Normal 11.8-15.4 [facility] Comment on above: Order Comment: Reaso n for Exam Iron deficiency Performed By: #### G TT3 #### [facility] [address] [place] [address] Insulinon 08-03-2023 Insulin 14.1 u[iU]/mL Normal 2.6-24.9 [facility] Comment on above: Order Comment: Name Collection Type:: Clean-Voided Midstream Result Comment: Perf ormed at: - [facility] [address] [id number] Nipping Machine Operator: Sam Lopez PhD, Phone: [phone] PERFORMED BY: [place] [address] PATHOLOGIST HYDROGEOLOGY PROFESSOR ALLA OROZCO M.D. Performed By: #### A DDONUALETICIA, [facility] [place] #### [address] Iron [Mass/volume] in Serum or PlasmaOrdered By: Nataly Toure on 08-03-2023 Iron [Mass/Vol] 43 ug/dL Low 50-212 [facility] Comment on above: Order Comment: Reaso n for Exam Hypothyroidism, unspecified type;High blood triglycerides Reason for Exam Iron deficiency Reason for Exam High blood triglycerides Reason for Exam Hypothyroidism, unspecified type Performed By: #### G TT3 #### [facility] [address] [place] [address] Iron and TIBC Profileon 07-16 % Iron Saturation 11.3 % Low 20-50 [facility] Comment on above: Order Comment: Reaso n for Exam Hypothyroidism, unspecified type;High blood triglycerides Reason for Exam Iron deficiency Reason for Exam High blood triglycerides Reason for Exam Hypothyroidism, unspecified type Performed By: #### G TT3 #### [address] Total Iron Binding Capacity 382 ug/dL Normal 255-450 [facility] Comment on above: Order Comment: Reaso n for Exam Hypothyroidism, unspecified type;High blood triglycerides Reason for Exam Iron deficiency Reason for Exam High blood triglycerides Reason for Exam Hypothyroidism, unspecified type Performed By: #### G TT3 #### [facility] [address] Iron binding capacity [Mass/ volume] in Serum or PlasmaOrdered By: Nataly Toure on 08-03-2023 Iron binding capacity [Mass/Vol] 382 ug/dL 255-450 [facility] Iron saturation [Mass Fracti on] in Serum or PlasmaOrdered By: Nataly Toure on 08-03-2023 Iron saturation [Mass fraction] 11.3 % Low 20-50 [facility] Leukocytes [#/volume] correc kee for nucleated erythrocytes in Blood by Automated counOrdered By: Nataly Toure on 08-03-2023 WBC corrected for nucl RBC Auto (Bld) [#/Vol] 7.2 10*3/uL 3.8-11.6 [facility] Leukocytes [#/volume] in Blo od by Automated countOrdered By: Nataly Toure on 08-03-2023 WBC (Bld) [#/Vol] 7.2 10*3/uL Normal 3.8-11.6 [facility] Comment on above: Order Comment: Reaso n for Exam Iron deficiency Performed By: #### G TT3 #### [facility] [address] Lipid Panelon 08-03-2023 LDL Cholesterol,Calculated 82 mg/dL Normal 0-100 [facility] Comment on above: Order [...] high Performed By: #### G TT3 #### [facility] [address] Triglyceride w/Reflex 140 mg/dL Normal 0-149 [facility] Comment on above: Order [...] method. Performed By: #### G TT3 #### [address] VLDL CHOLESTEROL 28 mg/dL Normal [facility] Comment on above: Order Comment: Reaso n for Exam Hypothyroidism, unspecified type;High blood triglycerides Reason for Exam Iron deficiency Reason for Exam High blood triglycerides Reason for Exam Hypothyroidism, unspecified type Performed By: #### G TT3 #### [address] Lymphocytes [#/volume] in Bl ood by Automated countOrdered By: Nataly Toure on 08-03-2023 Lymphocytes (Bld) [#/Vol] 1.6 10*3/uL Normal 1.00-4.8 [facility] Comment on above: Order Comment: Reaso n for Exam Iron deficiency Performed By: #### G TT3 #### [place] [address] [place] Lymphocytes/100 leukocytes i n Blood by Automated countOrdered By: Nataly Toure on 08-03-2023 Lymphocytes/100 WBC (Bld) 22.8 % Normal . [facility] Comment on above: Order Comment: Reaso n for Exam Iron deficiency Performed By: #### G TT3 #### [place] [address] [place] MCH [Entitic mass] by Automa kee countOrdered By: Nataly Toure on 08-03-2023 MCH (RBC) [Entitic mass] 25.8 pg Normal 24.7-34.3 [facility] Comment on above: Order Comment: Reaso n for Exam Iron deficiency Performed By: #### G TT3 #### [address] MCHC Auto (RBC) [Mass/Vol]Or dered By: Nataly Toure on 08-03-2023 MCHC (RBC) [Mass/Vol] 33.1 g/dL 32.0-35.[address] [facility] MCV [Entitic volume] by Auto mated countOrdered By: Nataly Toure on 08-03-2023 MCV (RBC) [Entitic vol] 78.0 fL Low 80-100 [facility] Comment on above: Order Comment: Reaso n for Exam Iron deficiency Performed By: #### G TT3 #### [address] Neutrophils [#/volume] in Bl ood by Automated countOrdered By: Nataly Toure on 08-03-2023 Neutrophils (Bld) [#/Vol] 5.1 10*3/uL Normal 1.8-7.7 [facility] Comment on above: Order Comment: Reaso n for Exam Iron deficiency Performed By: #### G TT3 #### [address] No Panel InformationOrdered By: Nataly Toure on 08-03-2023 Estimated GFR (CKD-EPI) > 60.0 mL/Min [facility] Creatinine Clearance (Chem N/A [facility] Nucleated erythrocytes [Pres ence] in Blood by Automated countOrdered By: Nataly Toure on 08-03-2023 Nucleated RBC Auto Ql (Bld) 0.2 /100{WBC} 0-0.5 [facility] Platelet mean volume [Entiti c volume] in Blood by Automated countOrdered By: Nataly Toure on 08-03-2023 Platelet mean volume (Bld) [Entitic vol] 9.2 fL Normal 6.3-10.7 [facility] Comment on above: Order Comment: Reaso n for Exam Iron deficiency Performed By: #### G TT3 #### [facility] [address] [place] [address] [place] Platelets [#/volume] in Bloo d by Automated countOrdered By: Nataly Toure on 08-03-2023 Platelets (Bld) [#/Vol] 260 10*3/uL Normal 150-450 [facility] Comment on above: Order Comment: Reaso n for Exam Iron deficiency Performed By: #### G TT3 #### [facility] [address] [place] [address] [place] Potassium [Moles/volume] in Serum or PlasmaOrdered By: Nataly Toure on 08-03-2023 Potassium [Moles/Vol] 3.6 mmol/L Normal 3.5-5.[address] [facility] Comment on above: Order Comment: Reaso n for Exam Hypothyroidism, unspecified type;High blood triglycerides Reason for Exam Iron deficiency Reason for Exam High blood triglycerides Reason for Exam Hypothyroidism, unspecified type Performed By: #### G TT3 #### [facility] [address] Protein [Mass/volume] in Ser um or PlasmaOrdered By: Nataly Toure on 08-03-2023 Protein [Mass/Vol] 7.2 g/dL Normal 6.4-8.9 [facility] Comment on above: Order Comment: Reaso n for Exam Hypothyroidism, unspecified type;High blood triglycerides Reason for Exam Iron deficiency Reason for Exam High blood triglycerides Reason for Exam Hypothyroidism, unspecified type Performed By: #### G TT3 #### [facility] [address] Serum globulin measurement b y calculation (mass/volume)Ordered By: Nataly Toure on 08-03-2023 Globulin (S) [Mass/Vol] 2.8 g/dL [facility] Comment on above: Order Comment: Reaso n for Exam Hypothyroidism, unspecified type;High blood triglycerides Reason for Exam Iron deficiency Reason for Exam High blood triglycerides Reason for Exam Hypothyroidism, unspecified type Performed By: #### G TT3 #### [facility] [address] [place] [address] [place] Serum or plasma albumin/glob ulin mass ratioOrdered By: Nataly Toure on 08-03-2023 Albumin/Globulin [Mass ratio] 1.6 {ratio} [facility] Comment on above: Order Comment: Reaso n for Exam Hypothyroidism, unspecified type;High blood triglycerides Reason for Exam Iron deficiency Reason for Exam High blood triglycerides Reason for Exam Hypothyroidism, unspecified type Performed By: #### G TT3 #### [facility] [address] [place] [id number] [facility] Serum or plasma anion gap de terminationOrdered By: Nataly Toure on 08-03-2023 Anion gap [Moles/Vol] 11.4 mmol/L Normal 6.0-15.0 [facility] Comment on above: Order Comment: Reaso n for Exam Hypothyroidism, unspecified type;High blood triglycerides Reason for Exam Iron deficiency Reason for Exam High blood triglycerides Reason for Exam Hypothyroidism, unspecified type Performed By: #### G TT3 #### [facility] [address] Serum or plasma high density lipoprotein (HDL) cholesterol measurementOrdered By: Nataly Toure on 08-03-2023 Cholesterol in HDL [Mass/Vol] 49 mg/dL Normal 23-92 [facility] Comment on above: HDL CHOL ATP-III CLA [...] HIGH Performed By: #### G TT3 #### [facility] [address] [place] [address] Serum or plasma insulin nikita urement (units/volume)Ordered By: Nataly Toure on 08-03-2023 Insulin Qn 14.1 u[iU]/mL 2.6-24.9 [facility] Comment on above: Performed at: [address] [id number] Director: Sam Lopez PhD, Phone: [phone] Serum or plasma total choles terol/high density lipoprotein (HDL) cholesterol mass ratOrdered By: Nataly Toure on 08-03-2023 Cholesterol.total/Chol esterol in HDL [Mass ratio] 3.2 {ratio} Normal <5.0 [facility] Comment on above: Order Comment: Reaso n for Exam Hypothyroidism, unspecified type;High blood triglycerides Reason for Exam Iron deficiency Reason for Exam High blood triglycerides Reason for Exam Hypothyroidism, unspecified type Performed By: #### G TT3 #### [facility] [address] [place] [address] [place] Sodium [Moles/volume] in Ser um or PlasmaOrdered By: Nataly Toure on 08-03-2023 Sodium [Moles/Vol] 140 mmol/L Normal 136-145 [facility] Comment on above: Order Comment: Reaso n for Exam Hypothyroidism, unspecified type;High blood triglycerides Reason for Exam Iron deficiency Reason for Exam High blood triglycerides Reason for Exam Hypothyroidism, unspecified type Performed By: #### G TT3 #### [facility] [address] [place] [address] Thyroid Stim Hormone w/Rflxo n 08-03-2023 Thyroid Stim Hormone w/Rflx 3.20 u[iU]/mL Normal 0.45-5.33 [facility] Comment on above: Order Comment: Reaso n for Exam Hypothyroidism, unspecified type;High blood triglycerides Reason for Exam Iron deficiency Reason for Exam High blood triglycerides Reason for Exam Hypothyroidism, unspecified type Result Comment: PERF ORMED BY: [place] [address] PATHOLOGIST HYDROGEOLOGY PROFESSOR ALLA OROZCO M.D. Performed By: #### G TT3 #### [address] Thyrotropin [Units/volume] i n Serum or PlasmaOrdered By: Nataly Toure on 08-03-2023 TSH Qn 3.20 m[IU]/L 0.45-5.33 [facility] Transferrin [Mass/volume] in Serum or PlasmaOrdered By: Nataly Toure on 08-03-2023 Transferrin [Mass/Vol] 273 mg/dL Normal 203-362 [facility] Comment on above: Order Comment: Reaso n for Exam Hypothyroidism, unspecified type;High blood triglycerides Reason for Exam Iron deficiency Reason for Exam High blood triglycerides Reason for Exam Hypothyroidism, unspecified type Performed By: #### G TT3 #### [facility] [address] [place] [address] [place] Triglyceride [Mass/volume] i n Serum or PlasmaOrdered By: Nataly Toure on 08-03-2023 Triglyceride [Mass/Vol] 140 mg/dL 0-149 [facility] Comment on above: TRIG ATP III CLASSIF ICATIONTRIG less than 150 mg/dL NormalTRIG 150-199 mg/dL Borderline highTRIG 200-500 mg/dL High TRIG greater than 500 mg/dL Very highStandard traceable to the Center for Disease Conrtrol and Prevention (CDC) test method. Urea nitrogen [Mass/volume] in Serum or PlasmaOrdered By: Nataly Toure on 08-03-2023 Urea nitrogen [Mass/Vol] 10 mg/dL Normal 7-25 [facility] Comment on above: Order Comment: Reaso n for Exam Hypothyroidism, unspecified type;High blood triglycerides Reason for Exam Iron deficiency Reason for Exam High blood triglycerides Reason for Exam Hypothyroidism, unspecified type Performed By: #### G TT3 #### [address] Complete Blood Count Auto Di ffon 04-15-2023 Basophils (Bld) [#/Vol] 0.0 10*3/uL Normal 0.0-0.2 [facility] Comment on above: Order Comment: Reaso n for Exam Iron deficiency Result Comment: PERF ORMED BY: [place] [address] PATHOLOGIST HYDROGEOLOGY PROFESSOR ALLA OROZCO M.D. Performed By: #### C BC #### [facility] [address] [place] [address] #### RPR W RFX #### [facility] , Basophils/100 WBC (Bld) 0.5 % Normal . [facility] Comment on above: Order Comment: Reaso n for Exam Iron deficiency Performed By: #### C BC #### [facility] [address] [place] [address] [place] #### RPR W RFX #### [facility] , Eosinophils (Bld) [#/Vol] 0.2 10*3/uL Normal 0.0-0.45 [facility] Comment on above: Order Comment: Reaso n for Exam Iron deficiency Performed By: #### C BC #### [address] #### RPR W RFX #### [facility] , Eosinophils/100 WBC (Bld) 3.8 % Normal . [facility] Comment on above: Order Comment: Reaso n for Exam Iron deficiency Performed By: #### C BC #### [place] [address] [place] #### RPR W RFX #### [facility] , Erythrocyte distribution width (RBC) [Ratio] 16.9 % High 11.9-15.3 [facility] Comment on above: Order Comment: Reaso n for Exam Iron deficiency Performed By: #### C BC #### [address] #### RPR W RFX #### [facility] , Hematocrit (Bld) [Volume fraction] 36.2 % Normal 34.0-46.4 [facility] Comment on above: Order Comment: Reaso n for Exam Iron deficiency Performed By: #### C BC #### [address] #### RPR W RFX #### [facility] , Hemoglobin (Bld) [Mass/Vol] 12.0 g/dL Normal 11.8-15.4 [facility] Comment on above: Order Comment: Reaso n for Exam Iron deficiency Performed By: #### C BC #### [place] [address] [place] #### RPR W RFX #### [facility] , Lymphocytes (Bld) [#/Vol] 1.6 10*3/uL Normal 1.00-4.8 [facility] Comment on above: Order Comment: Reaso n for Exam Iron deficiency Performed By: #### C BC #### [place] [address] [place] #### RPR W RFX #### [facility] , Lymphocytes/100 WBC (Bld) 28.1 % Normal . [facility] Comment on above: Order Comment: Reaso n for Exam Iron deficiency Performed By: #### C BC #### [address] #### RPR W RFX #### [facility] , MCH (RBC) [Entitic mass] 25.7 pg Normal 24.7-34.3 [facility] Comment on above: Order Comment: Reaso n for Exam Iron deficiency Performed By: #### C BC #### [facility] [address] [place] [address] #### RPR W RFX #### [facility] , MCV (RBC) [Entitic vol] 77.7 fL Low 80-100 [facility] Comment on above: Order Comment: Reaso n for Exam Iron deficiency Performed By: #### C BC #### [address] #### RPR W RFX #### [facility] , Mean Corpuscular HGB Conc 33.1 g/dL Normal 32.0-35.0 [facility] Comment on above: Order Comment: Reaso n for Exam Iron deficiency Performed By: #### C BC #### [facility] [address] [place] [address] [place] #### RPR W RFX #### [facility] , Monocytes (Bld) [#/Vol] 0.5 10*3/uL Normal 0.0-0.8 [facility] Comment on above: Order Comment: Reaso n for Exam Iron deficiency Performed By: #### C BC #### [place] [address] [place] #### RPR W RFX #### [facility] , Monocytes/100 WBC (Bld) 9.0 % Normal . [facility] Comment on above: Order Comment: Reaso n for Exam Iron deficiency Performed By: #### C BC #### [place] [address] [place] #### RPR W RFX #### [facility] , Neutrophils (Bld) [#/Vol] 3.3 10*3/uL Normal 1.8-7.7 [facility] Comment on above: Order Comment: Reaso n for Exam Iron deficiency Performed By: #### C BC #### [address] #### RPR W RFX #### [facility] , Neutrophils/100 WBC (Bld) 58.6 % Normal . [facility] Comment on above: Order Comment: Reaso n for Exam Iron deficiency Performed By: #### C BC #### [address] #### RPR W RFX #### [facility] , NRBC% 0.1 /100{WBC} Normal 0-0.5 [facility] Comment on above: Order Comment: Reaso n for Exam Iron deficiency Performed By: #### C BC #### [address] #### RPR W RFX #### [facility] , Platelet mean volume (Bld) [Entitic vol] 9.1 fL Normal 6.3-10.7 [facility] Comment on above: Order Comment: Reaso n for Exam Iron deficiency Performed By: #### C BC #### [facility] [address] [place] [address] [place] #### RPR W RFX #### [facility] , Platelets (Bld) [#/Vol] 220 10*3/uL Normal 150-450 [facility] Comment on above: Order Comment: Reaso n for Exam Iron deficiency Performed By: #### C BC #### [facility] [address] #### RPR W RFX #### [facility] , RBC (Bld) [#/Vol] 4.66 10*6/uL Normal 3.60-5.00 [facility] Comment on above: Order Comment: Reaso n for Exam Iron deficiency Performed By: #### C BC #### [address] #### RPR W RFX #### [facility] , WBC (Bld) [#/Vol] 5.6 10*3/uL Normal 3.8-11.6 [facility] Comment on above: Order Comment: Reaso n for Exam Iron deficiency Performed By: #### C BC #### [address] #### RPR W RFX #### [facility] , Comprehensive Metabolic Pane ramakrishna 04-15-2023 Albumin [Mass/Vol] 4.1 g/dL Normal 3.5-5.7 [facility] Comment on above: Order Comment: Reaso n for Exam Iron deficiency Reason for Exam High blood triglycerides Performed By: #### C BC #### [address] #### RPR W RFX #### [facility] , Albumin/Globulin [Mass ratio] 1.4 {ratio} Normal [facility] Comment on above: Order Comment: Reaso n for Exam Iron deficiency Reason for Exam High blood triglycerides Performed By: #### C BC #### [facility] [address] [place] [address] [place] #### RPR W RFX #### [facility] , ALP [Catalytic activity/Vol] 89 U/L Normal 34-104 [facility] Comment on above: Order Comment: Reaso n for Exam Iron deficiency Reason for Exam High blood triglycerides Performed By: #### C BC #### [place] [address] [place] #### RPR W RFX #### [facility] , ALT [Catalytic activity/Vol] 14 U/L Normal 7-52 [facility] Comment on above: Order Comment: Reaso n for Exam Iron deficiency Reason for Exam High blood triglycerides Performed By: #### C BC #### [facility] [address] [place] [address] #### RPR W RFX #### [facility] , Anion gap [Moles/Vol] 10.2 mmol/L Normal 6.0-15.0 [facility] Comment on above: Order Comment: Reaso n for Exam Iron deficiency Reason for Exam High blood triglycerides Performed By: #### C BC #### [facility] [address] [place] [address] #### RPR W RFX #### [facility] , AST [Catalytic activity/Vol] 13 U/L Normal 13-39 [facility] Comment on above: Order Comment: Reaso n for Exam Iron deficiency Reason for Exam High blood triglycerides Performed By: #### C BC #### [facility] [address] [place] [address] #### RPR W RFX #### [facility] , Bilirubin [Mass/Vol] 0.3 mg/dL Normal 0.3-1.0 [facility] Comment on above: Order Comment: Reaso n for Exam Iron deficiency Reason for Exam High blood triglycerides Performed By: #### C BC #### [facility] [address] [place] [address] #### RPR W RFX #### [facility] , Calcium [Mass/Vol] 9.0 mg/dL Normal 8.6-10.3 [facility] Comment on above: Order Comment: Reaso n for Exam Iron deficiency Reason for Exam High blood triglycerides Performed By: #### C BC #### [facility] [address] [place] [address] #### RPR W RFX #### [facility] , Chloride [Moles/Vol] 105 mmol/L Normal 98-107 [facility] Comment on above: Order Comment: Reaso n for Exam Iron deficiency Reason for Exam High blood triglycerides Performed By: #### C BC #### [facility] [address] [place] [address] #### RPR W RFX #### [facility] , CO2 [Moles/Vol] 27.9 mmol/L Normal 21.0-31.0 [facility] Comment on above: Order Comment: Reaso n for Exam Iron deficiency Reason for Exam High blood triglycerides Performed By: #### C BC #### [facility] [address] [place] [address] [place] #### RPR W RFX #### [facility] , Creatinine [Mass/Vol] 0.69 mg/dL Normal 0.60-1.20 [facility] Comment on above: Order Comment: Reaso n for Exam Iron deficiency Reason for Exam High blood triglycerides Performed By: #### C BC #### [facility] [address] [place] [address] #### RPR W RFX #### [facility] , GFR/1.73 sq M.predicted MDRD (S/P/Bld) [Vol rate/Area] mL/min/{1.73_m2} Normal [facility] Comment on above: Order Comment: Reaso n for Exam Iron deficiency Reason for Exam High blood triglycerides Performed By: #### C BC #### [facility] [address] [place] [address] [place] #### RPR W RFX #### [facility] , Globulin (S) [Mass/Vol] 2.9 g/dL Normal [facility] Comment on above: Order Comment: Reaso n for Exam Iron deficiency Reason for Exam High blood triglycerides Performed By: #### C BC #### [facility] [address] [place] [address] [place] #### RPR W RFX #### [facility] , Glucose [Mass/Vol] 103 mg/dL High 70-100 [facility] Comment on above: Order Comment: Reaso n for Exam Iron deficiency Reason for Exam High blood triglycerides Result Comment: Kimberly Glucose Reference Range is dependent on time and content of last meal. Glucose of more than 200 mg/dL in a nonstressed, ambulatory subject supports the diagnosis of Diabetes Mellitus. ADA recommended reference range Performed By: #### C BC #### [facility] [address] [place] [address] [place] #### RPR W RFX #### [facility] , Potassium [Moles/Vol] 4.1 mmol/L Normal 3.5-5.1 [facility] Comment on above: Order Comment: Reaso n for Exam Iron deficiency Reason for Exam High blood triglycerides Performed By: #### C BC #### [place] [address] [place] #### RPR W RFX #### [facility] , Protein [Mass/Vol] 7.0 g/dL Normal 6.4-8.9 [facility] Comment on above: Order Comment: Reaso n for Exam Iron deficiency Reason for Exam High blood triglycerides Performed By: #### C BC #### [place] [address] [place] #### RPR W RFX #### [facility] , Sodium [Moles/Vol] 139 mmol/L Normal 136-145 [facility] Comment on above: Order Comment: Reaso n for Exam Iron deficiency Reason for Exam High blood triglycerides Performed By: #### C BC #### [facility] [address] [place] [address] [place] #### RPR W RFX #### [facility] , Urea nitrogen [Mass/Vol] 12 mg/dL Normal 7-25 [facility] Comment on above: Order Comment: Reaso n for Exam Iron deficiency Reason for Exam High blood triglycerides Performed By: #### C BC #### [place] [address] [place] #### RPR W RFX #### [facility] , Iron and TIBC Profileon 03-19 % Iron Saturation 8.6 % Low 20-50 [facility] Comment on above: Order Comment: Reaso n for Exam Iron deficiency Reason for Exam High blood triglycerides Performed By: #### C BC #### [facility] [address] [place] [address] [place] #### RPR W RFX #### [facility] , Iron [Mass/Vol] 28 ug/dL Low 50-212 [facility] Comment on above: Order Comment: Reaso n for Exam Iron deficiency Reason for Exam High blood triglycerides Performed By: #### C BC #### [facility] [address] [place] [address] #### RPR W RFX #### [facility] , Total Iron Binding Capacity 326 ug/dL Normal 255-450 [facility] Comment on above: Order Comment: Reaso n for Exam Iron deficiency Reason for Exam High blood triglycerides Performed By: #### C BC #### [facility] [address] [place] [address] #### RPR W RFX #### [facility] , Transferrin [Mass/Vol] 233 mg/dL Normal 203-362 [facility] Comment on above: Order Comment: Reaso n for Exam Iron deficiency Reason for Exam High blood triglycerides Performed By: #### C BC #### [facility] [address] [place] [address] [place] #### RPR W RFX #### [facility] , Lipid Panelon 04-15-2023 Cholesterol [Mass/Vol] 131 mg/dL Low 140-200 [facility] Comment on above: Order Comment: Reaso n for Exam Iron deficiency Reason for Exam High blood triglycerides Result Comment: Chol less than 200 mg/dl low risk Chol 201-239 mg/dl borderline risk Chol 240 mg/dl and greater high risk Performed By: #### C BC #### [place] [address] [place] #### RPR W RFX #### [facility] , Cholesterol in HDL [Mass/Vol] 39 mg/dL Normal 23-92 [facility] Comment on above: Order Comment: Reaso n for Exam Iron deficiency Reason for Exam High blood triglycerides Result Comment: HDL CHOL ATP-III CLASSIFICATION Cardiovascular Risk HDL > or equal to 60 mg/dL LOW HDL < 40 mg/dL HIGH Performed By: #### C BC #### [address] #### RPR W RFX #### [facility] , Cholesterol.total/Chol esterol in HDL [Mass ratio] 3.4 {ratio} Normal <5.0 [facility] Comment on above: Order Comment: Reaso n for Exam Iron deficiency Reason for Exam High blood triglycerides Result Comment: PERF ORMED BY: [place] [address] PATHOLOGIST HYDROGEOLOGY PROFESSOR ALLA OROZCO M.D. Performed By: #### C BC #### [address] #### RPR W RFX #### [facility] , LDL Cholesterol,Calculated 58 mg/dL Normal 0-100 [facility] Comment on above: Order Comment: Reaso n for Exam Iron deficiency Reason for Exam High blood triglycerides Result Comment: LDL ATP III CLASSIFICATION LDL less than 100 mg/dL Optimal LDL 100-129 mg/dL Near or above optimal LDL 130-159 mg/dL Borderline high LDL 160-189 mg/dL High LDL greater than 189 mg/dL Very high Performed By: #### C BC #### [place] [address] [place] #### RPR W RFX #### [facility] , Triglyceride w/Reflex 170 mg/dL High 0-149 [facility] Comment on above: Order [...] method. Performed By: #### C BC #### [address] #### RPR W RFX #### [facility] , VLDL CHOLESTEROL 34 mg/dL Normal [facility] Comment on above: Order Comment: Reaso n for Exam Iron deficiency Reason for Exam High blood triglycerides Performed By: #### C BC #### [address] #### RPR W RFX #### [facility] , A1C with Estimated Average G luon 03-17-2023 Glucose [Mass/Vol] 114 mg/dL Normal [facility] Comment on above: Order Comment: Name Collection Type:: Clean-Voided Midstream Result Comment: PERF ORMED BY: [place] [address] PATHOLOGIST HYDROGEOLOGY PROFESSOR ALLA OROZCO M.D. Performed By: #### A DDONUALETICIA, [facility] [place] #### [address] Glucose mean value [Mass/vol ume] in Blood Estimated from glycated hemoglobinOrdered By: Nataly Toure on 03-17-2023 Average glucose Estimated from glycated hemoglobin (Bld) [Mass/Vol] 114 mg/dL [facility] Hemoglobin A1c percentageOrd ered By: Nataly Toure on 03-17-2023 HbA1c (Bld) [Mass fraction] 5.6 % Normal 4.3-5.6 [facility] Comment on above: Increased risk for d iabetes: 5.7 - 6.4diabetes: >6.4glycemic control for adults with diabetes: <7.0 Order Comment: Name Collection Type:: Clean-Voided Midstream Result Comment: Incr eased risk for diabetes: 5.7 - 6.4 diabetes: >6.4 glycemic control for adults with diabetes: <7.0 Performed By: #### A DDONUAPLUS, [facility] #### [address] Insulinon 03-17-2023 Insulin 105.0 u[iU]/mL High 2.6-24.9 [facility] Comment on above: Order Comment: Name Collection Type:: Clean-Voided Midstream Result Comment: Perf ormed at: - [facility] [address] [id number] Nipping Machine Operator: Sam Lopez PhD, Phone: [phone] PERFORMED BY: [place] [address] PATHOLOGIST HYDROGEOLOGY PROFESSOR ALLA OROZCO M.D. Performed By: #### A JOSE, [facility] [place] #### [address] Alanine aminotransferase [En zymatic activity/volume] in Serum or PlasmaOrdered By: Nataly Toure on 03-04-2023 ALT [Catalytic activity/Vol] 12 U/L Normal 7-52 [facility] Comment on above: Order Comment: Reaso n for Exam Obesity, unspecified;High blood triglycerides Reason for Exam Iron deficiency Reason for Exam High blood triglycerides Reason for Exam Hypothyroidism, unspecified type Performed By: #### C BC #### [address] #### RPR W RFX #### [facility] , Albumin [Mass/volume] in Ser um or Plasma by Bromocresol green (BCG) dye binding methoOrdered By: Nataly Toure on 03-04-2023 Albumin BCG dye [Mass/Vol] 3.7 g/dL 3.5-5.7 [facility] Alkaline phosphatase [Enzyma tic activity/volume] in Serum or PlasmaOrdered By: Nataly Toure on 03-04-2023 ALP [Catalytic activity/Vol] 100 U/L Normal 34-104 [facility] Comment on above: Order Comment: Reaso n for Exam Obesity, unspecified;High blood triglycerides Reason for Exam Iron deficiency Reason for Exam High blood triglycerides Reason for Exam Hypothyroidism, unspecified type Performed By: #### C BC #### [facility] [address] [place] [address] [place] #### RPR W RFX #### [facility] , Aspartate aminotransferase [ Enzymatic activity/volume] in Serum or PlasmaOrdered By: Nataly Toure on 03-04-2023 AST [Catalytic activity/Vol] 12 U/L Low 13-39 [facility] Comment on above: Order Comment: Reaso n for Exam Obesity, unspecified;High blood triglycerides Reason for Exam Iron deficiency Reason for Exam High blood triglycerides Reason for Exam Hypothyroidism, unspecified type Performed By: #### C BC #### [facility] [address] [place] [address] [place] #### RPR W RFX #### [facility] , Automated basophil %Ordered By: Nataly Toure on 03-04-2023 Basophils/100 WBC (Bld) 1.0 % Normal . [facility] Comment on above: Order Comment: Reaso n for Exam Obesity, unspecified;High blood triglycerides Performed By: #### C BC #### [facility] [address] [place] [address] #### RPR W RFX #### [facility] , Automated basophil countOrde red By: Nataly Toure on 03-04-2023 Basophils (Bld) [#/Vol] 0.1 10*3/uL Normal 0.0-0.2 [facility] Comment on above: Order Comment: Reaso n for Exam Obesity, unspecified;High blood triglycerides Result Comment: PERF ORMED BY: [place] [address] PATHOLOGIST HYDROGEOLOGY PROFESSOR ALLA OROZCO M.D. Performed By: #### C BC #### [facility] [address] [place] [address] #### RPR W RFX #### [facility] , Automated blood monocyte cou ntOrdered By: Nataly Toure on 03-04-2023 Monocytes (Bld) [#/Vol] 0.6 10*3/uL Normal 0.0-0.8 [facility] Comment on above: Order Comment: Reaso n for Exam Obesity, unspecified;High blood triglycerides Performed By: #### C BC #### [address] #### RPR W RFX #### [facility] , Automated eosinophil %Ordere d By: Nataly Toure on 03-04-2023 Eosinophils/100 WBC (Bld) 2.0 % Normal . [facility] Comment on above: Order Comment: Reaso n for Exam Obesity, unspecified;High blood triglycerides Performed By: #### C BC #### [place] [address] [place] #### RPR W RFX #### [facility] , Automated eosinophil countOr dered By: Nataly Toure on 03-04-2023 Eosinophils (Bld) [#/Vol] 0.1 10*3/uL Normal 0.0-0.45 [facility] Comment on above: Order Comment: Reaso n for Exam Obesity, unspecified;High blood triglycerides Performed By: #### C BC #### [place] [address] [place] #### RPR W RFX #### [facility] , Automated monocyte %Ordered By: Nataly Toure on 03-04-2023 Monocytes/100 WBC (Bld) 9.2 % Normal . [facility] Comment on above: Order Comment: Reaso n for Exam Obesity, unspecified;High blood triglycerides Performed By: #### C BC #### [facility] [address] [place] [address] [place] #### RPR W RFX #### [facility] , Automated neutrophil %Ordere d By: Nataly Toure on 03-04-2023 Neutrophils/100 WBC (Bld) 58.4 % Normal . [facility] Comment on above: Order Comment: Reaso n for Exam Obesity, unspecified;High blood triglycerides Performed By: #### C BC #### [facility] [address] [place] [address] #### RPR W RFX #### [facility] , Bilirubin.total [Mass/volume ] in Serum or PlasmaOrdered By: Nataly Toure on 03-04-2023 Bilirubin [Mass/Vol] 0.3 mg/dL Normal 0.3-1.0 [facility] Comment on above: Order Comment: Reaso n for Exam Obesity, unspecified;High blood triglycerides Reason for Exam Iron deficiency Reason for Exam High blood triglycerides Reason for Exam Hypothyroidism, unspecified type Performed By: #### C BC #### [facility] [address] [place] [address] #### RPR W RFX #### [facility] , Calcium [Mass/volume] in Ser um or PlasmaOrdered By: Nataly Toure on 03-04-2023 Calcium [Mass/Vol] 8.9 mg/dL Normal 8.6-10.3 [facility] Comment on above: Order Comment: Reaso n for Exam Obesity, unspecified;High blood triglycerides Reason for Exam Iron deficiency Reason for Exam High blood triglycerides Reason for Exam Hypothyroidism, unspecified type Performed By: #### C BC #### [facility] [address] [place] [address] #### RPR W RFX #### [facility] , Carbon dioxide, total [Moles /volume] in Serum or PlasmaOrdered By: Nataly Toure on 03-04-2023 CO2 [Moles/Vol] 26.6 mmol/L Normal 21.0-31.0 [facility] Comment on above: Order Comment: Reaso n for Exam Obesity, unspecified;High blood triglycerides Reason for Exam Iron deficiency Reason for Exam High blood triglycerides Reason for Exam Hypothyroidism, unspecified type Performed By: #### C BC #### [facility] [address] [place] [address] [place] #### RPR W RFX #### [facility] , Chloride [Moles/volume] in S rosa or PlasmaOrdered By: Nataly Toure on 03-04-2023 Chloride [Moles/Vol] 105 mmol/L Normal 98-107 [facility] Comment on above: Order Comment: Reaso n for Exam Obesity, unspecified;High blood triglycerides Reason for Exam Iron deficiency Reason for Exam High blood triglycerides Reason for Exam Hypothyroidism, unspecified type Performed By: #### C BC #### [facility] [address] [place] [address] [place] #### RPR W RFX #### [facility] , Cholesterol [Mass/volume] in Serum or PlasmaOrdered By: Nataly Toure on 03-04-2023 Cholesterol [Mass/Vol] 231 mg/dL High 140-200 [facility] Comment on above: Chol less [...] risk Performed By: #### C BC #### [facility] [address] [place] [address] [place] #### RPR W RFX #### [facility] , Cholesterol in LDL Calc [Mas s/Vol]Ordered By: Nataly Toure on 03-04-2023 Cholesterol in LDL [Mass/Vol] [facility] Comment on above: Test not performed Cholesterol in LDL [Mass/vol ume] in Serum or PlasmaOrdered By: Nataly Toure on 03-04-2023 Cholesterol in LDL [Mass/Vol] 81 mg/dL 0-100 [facility] Comment on above: LDL ATP III CLASSIFI CATIONLDL less than 100 mg/dL OptimalLDL 100-129 mg/dL Near or above optimalLDL 130-159 mg/dL Borderline highLDL 160-189 mg/dL HighLDL greater than 189 mg/dL Very high Cholesterol in VLDL Calc [Ma ss/Vol]Ordered By: Nataly Toure on 03-04-2023 Cholesterol in VLDL [Mass/Vol] 172 mg/dL [facility] Complete Blood Count Auto Di ffon 03-04-2023 Mean Corpuscular HGB Conc 32.7 g/dL Normal 32.0-35.0 [facility] Comment on above: Order Comment: Reaso n for Exam Obesity, unspecified;High blood triglycerides Performed By: #### C BC #### [facility] [address] [place] [address] [place] #### RPR W RFX #### [facility] , NRBC% 0.1 /100{WBC} Normal 0-0.5 [facility] Comment on above: Order Comment: Reaso n for Exam Obesity, unspecified;High blood triglycerides Performed By: #### C BC #### [address] #### RPR W RFX #### [facility] , Comprehensive Metabolic Pane ramakrishna 03-04-2023 Albumin [Mass/Vol] 3.7 g/dL Normal 3.5-5.7 [facility] Comment on above: Order Comment: Reaso n for Exam Obesity, unspecified;High blood triglycerides Reason for Exam Iron deficiency Reason for Exam High blood triglycerides Reason for Exam Hypothyroidism, unspecified type Performed By: #### C BC #### [place] [address] [place] #### RPR W RFX #### [facility] , GFR/1.73 sq M.predicted MDRD (S/P/Bld) [Vol rate/Area] mL/min/{1.73_m2} Normal [facility] Comment on above: Order Comment: Reaso n for Exam Obesity, unspecified;High blood triglycerides Reason for Exam Iron deficiency Reason for Exam High blood triglycerides Reason for Exam Hypothyroidism, unspecified type Performed By: #### C BC #### [facility] [address] [place] [address] [place] #### RPR W RFX #### [facility] , Creatinine [Mass/volume] in Serum or PlasmaOrdered By: Nataly Toure on 03-04-2023 Creatinine [Mass/Vol] 0.72 mg/dL Normal 0.60-1.[address] [facility] Comment on above: Order Comment: Reaso n for Exam Obesity, unspecified;High blood triglycerides Reason for Exam Iron deficiency Reason for Exam High blood triglycerides Reason for Exam Hypothyroidism, unspecified type Performed By: #### C BC #### [facility] [address] [place] [address] [place] #### RPR W RFX #### [facility] , Erythrocyte distribution wid th [Ratio] by Automated countOrdered By: Nataly Toure on 03-04-2023 Erythrocyte distribution width (RBC) [Ratio] 16.0 % High 11.9-15.3 [facility] Comment on above: Order Comment: Reaso n for Exam Obesity, unspecified;High blood triglycerides Performed By: #### C BC #### [place] [address] [place] #### RPR W RFX #### [facility] , Erythrocytes [#/volume] in B lood by Automated countOrdered By: Nataly Toure on 03-04-2023 RBC (Bld) [#/Vol] 4.52 10*6/uL Normal 3.60-5.00 [facility] Comment on above: Order Comment: Reaso n for Exam Obesity, unspecified;High blood triglycerides Performed By: #### C BC #### [facility] [address] [place] [address] [place] #### RPR W RFX #### [facility] , Ferritin [Mass/volume] in Se rum or PlasmaOrdered By: Nataly Toure on 03-04-2023 Ferritin [Mass/Vol] 18.9 ng/mL Normal 11.0-306.8 [facility] Comment on above: Order Comment: Reaso n for Exam Obesity, unspecified;High blood triglycerides Reason for Exam Iron deficiency Reason for Exam High blood triglycerides Reason for Exam Hypothyroidism, unspecified type Performed By: #### C BC #### [place] [address] [place] #### RPR W RFX #### [facility] , Glucose [Mass/volume] in Ser um or PlasmaOrdered By: Nataly Toure on 03-04-2023 Glucose [Mass/Vol] 95 mg/dL Normal 70-100 [facility] Comment on above: ADA recommended [...] for Exam Hypothyroidism, unspecified type Result Comment: Kimberly om Glucose Reference Range is dependent on time and content of last meal. Glucose of more than 200 mg/dL in a nonstressed, ambulatory subject supports the diagnosis of Diabetes Mellitus. ADA recommended reference range Performed By: #### C BC #### [place] [address] [place] #### RPR W RFX #### [facility] , Hematocrit [Volume Fraction] of Blood by Automated countOrdered By: Nataly Toure on 03-04-2023 Hematocrit (Bld) [Volume fraction] 34.7 % Normal 34.0-46.4 [facility] Comment on above: Order Comment: Reaso n for Exam Obesity, unspecified;High blood triglycerides Performed By: #### C BC #### [place] [address] [place] #### RPR W RFX #### [facility] , Hemoglobin [Mass/volume] in BloodOrdered By: Nataly Toure on 03-04-2023 Hemoglobin (Bld) [Mass/Vol] 11.3 g/dL Low 11.8-15.4 [facility] Comment on above: Order Comment: Reaso n for Exam Obesity, unspecified;High blood triglycerides Performed By: #### C BC #### [address] [place] [address] [place] #### RPR W RFX #### [facility] , Iron [Mass/volume] in Serum or PlasmaOrdered By: Nataly Toure on 03-04-2023 Iron [Mass/Vol] 43 ug/dL Low 50-212 [facility] Comment on above: Order Comment: Reaso n for Exam Obesity, unspecified;High blood triglycerides Reason for Exam Iron deficiency Reason for Exam High blood triglycerides Reason for Exam Hypothyroidism, unspecified type Performed By: #### C BC #### [facility] [address] [place] [address] [place] #### RPR W RFX #### [facility] , Iron and TIBC Profileon 02-15 % Iron Saturation 11.5 % Low 20-50 [facility] Comment on above: Order Comment: Reaso n for Exam Obesity, unspecified;High blood triglycerides Reason for Exam Iron deficiency Reason for Exam High blood triglycerides Reason for Exam Hypothyroidism, unspecified type Performed By: #### C BC #### [facility] [address] [place] [address] [place] #### RPR W RFX #### [facility] , Total Iron Binding Capacity 375 ug/dL Normal 255-450 [facility] Comment on above: Order Comment: Reaso n for Exam Obesity, unspecified;High blood triglycerides Reason for Exam Iron deficiency Reason for Exam High blood triglycerides Reason for Exam Hypothyroidism, unspecified type Performed By: #### C BC #### [facility] [address] [place] [address] [place] #### RPR W RFX #### [facility] , Iron binding capacity [Mass/ volume] in Serum or PlasmaOrdered By: Nataly Toure on 03-04-2023 Iron binding capacity [Mass/Vol] 375 ug/dL 255-450 [facility] Iron saturation [Mass Fracti on] in Serum or PlasmaOrdered By: Nataly Toure on 03-04-2023 Iron saturation [Mass fraction] 11.5 % 20-50 [facility] LDL Cholesterol Measuredon 0 03-04-2023 LDL Cholesterol Measured 81 mg/dL Normal 0-100 [facility] Comment on above: Order [...] high Performed By: #### C USTB #### [facility] [address] [place] [address] Leukocytes [#/volume] correc kee for nucleated erythrocytes in Blood by Automated counOrdered By: Nataly Toure on 03-04-2023 WBC corrected for nucl RBC Auto (Bld) [#/Vol] 6.2 10*3/uL 3.8-11.6 [facility] Leukocytes [#/volume] in Blo od by Automated countOrdered By: Nataly Toure on 03-04-2023 WBC (Bld) [#/Vol] 6.2 10*3/uL Normal 3.8-11.6 [facility] Comment on above: Order Comment: Reaso n for Exam Obesity, unspecified;High blood triglycerides Performed By: #### C BC #### [facility] [address] [place] [address] [place] #### RPR W RFX #### [facility] , Lipid Panelon 03-04-2023 LDL Cholesterol,Calculated Not performed Normal 0-100 [facility] Comment on above: Order Comment: Reaso n for Exam Obesity, unspecified;High blood triglycerides Reason for Exam Iron deficiency Reason for Exam High blood triglycerides Reason for Exam Hypothyroidism, unspecified type Performed By: #### C BC #### [facility] [address] [place] [address] [place] #### RPR W RFX #### [facility] , Triglyceride w/Reflex 863 mg/dL High 0-149 [facility] Comment on above: Order [...] resulted. Performed By: #### C BC #### [place] [address] [place] #### RPR W RFX #### [facility] , VLDL CHOLESTEROL 172 mg/dL Normal [facility] Comment on above: Order Comment: Reaso n for Exam Obesity, unspecified;High blood triglycerides Reason for Exam Iron deficiency Reason for Exam High blood triglycerides Reason for Exam Hypothyroidism, unspecified type Performed By: #### C BC #### [place] [address] [place] #### RPR W RFX #### [facility] , Lymphocytes [#/volume] in Bl ood by Automated countOrdered By: Nataly Toure on 03-04-2023 Lymphocytes (Bld) [#/Vol] 1.8 10*3/uL Normal 1.00-4.8 [facility] Comment on above: Order Comment: Reaso n for Exam Obesity, unspecified;High blood triglycerides Performed By: #### C BC #### [place] [address] [place] #### RPR W RFX #### [facility] , Lymphocytes/100 leukocytes i n Blood by Automated countOrdered By: Nataly Toure on 03-04-2023 Lymphocytes/100 WBC (Bld) 29.4 % Normal . [facility] Comment on above: Order Comment: Reaso n for Exam Obesity, unspecified;High blood triglycerides Performed By: #### C BC #### [place] [address] [place] #### RPR W RFX #### [facility] , MCH [Entitic mass] by Automa kee countOrdered By: Nataly Toure on 03-04-2023 MCH (RBC) [Entitic mass] 25.1 pg Normal 24.7-34.3 [facility] Comment on above: Order Comment: Reaso n for Exam Obesity, unspecified;High blood triglycerides Performed By: #### C BC #### [facility] [address] [place] [address] [place] #### RPR W RFX #### [facility] , MCHC Auto (RBC) [Mass/Vol]Or dered By: Nataly Toure on 03-04-2023 MCHC (RBC) [Mass/Vol] 32.7 g/dL 32.0-35.[address] [facility] MCV [Entitic volume] by Auto mated countOrdered By: Nataly Toure on 03-04-2023 MCV (RBC) [Entitic vol] 76.7 fL Low 80-100 [facility] Comment on above: Order Comment: Reaso n for Exam Obesity, unspecified;High blood triglycerides Performed By: #### C BC #### [facility] [address] [place] [address] [place] #### RPR W RFX #### [facility] , Neutrophils [#/volume] in Bl ood by Automated countOrdered By: Nataly Toure on 03-04-2023 Neutrophils (Bld) [#/Vol] 3.6 10*3/uL Normal 1.8-7.7 [facility] Comment on above: Order Comment: Reaso n for Exam Obesity, unspecified;High blood triglycerides Performed By: #### C BC #### [facility] [address] [place] [address] [place] #### RPR W RFX #### [facility] , No Panel InformationOrdered By: Nataly Toure on 03-04-2023 Estimated GFR (CKD-EPI) > 60.0 mL/Min [facility] Creatinine Clearance (Chem N/A [facility] Nucleated erythrocytes [Pres ence] in Blood by Automated countOrdered By: Nataly Toure on 03-04-2023 Nucleated RBC Auto Ql (Bld) 0.1 /100{WBC} 0-0.5 [facility] Platelet mean volume [Entiti c volume] in Blood by Automated countOrdered By: Nataly Toure on 03-04-2023 Platelet mean volume (Bld) [Entitic vol] 9.8 fL Normal 6.3-10.7 [facility] Comment on above: Order Comment: Reaso n for Exam Obesity, unspecified;High blood triglycerides Performed By: #### C BC #### [facility] [address] [place] [address] #### RPR W RFX #### [facility] , Platelets [#/volume] in Bloo d by Automated countOrdered By: Nataly Toure on 03-04-2023 Platelets (Bld) [#/Vol] 217 10*3/uL Normal 150-450 [facility] Comment on above: Order Comment: Reaso n for Exam Obesity, unspecified;High blood triglycerides Performed By: #### C BC #### [facility] [address] [place] [address] [place] #### RPR W RFX #### [facility] , Potassium [Moles/volume] in Serum or PlasmaOrdered By: Nataly Toure on 03-04-2023 Potassium [Moles/Vol] 3.8 mmol/L Normal 3.5-5.[address] [facility] Comment on above: Order Comment: Reaso n for Exam Obesity, unspecified;High blood triglycerides Reason for Exam Iron deficiency Reason for Exam High blood triglycerides Reason for Exam Hypothyroidism, unspecified type Performed By: #### C BC #### [facility] [address] [place] [address] [place] #### RPR W RFX #### [facility] , Protein [Mass/volume] in Ser um or PlasmaOrdered By: Nataly Toure on 03-04-2023 Protein [Mass/Vol] 6.4 g/dL Normal 6.4-8.9 [facility] Comment on above: Order Comment: Reaso n for Exam Obesity, unspecified;High blood triglycerides Reason for Exam Iron deficiency Reason for Exam High blood triglycerides Reason for Exam Hypothyroidism, unspecified type Performed By: #### C BC #### [facility] [address] [place] [address] #### RPR W RFX #### [facility] , Serum globulin measurement b y calculation (mass/volume)Ordered By: Nataly Toure on 03-04-2023 Globulin (S) [Mass/Vol] 2.7 g/dL [facility] Comment on above: Order Comment: Reaso n for Exam Obesity, unspecified;High blood triglycerides Reason for Exam Iron deficiency Reason for Exam High blood triglycerides Reason for Exam Hypothyroidism, unspecified type Performed By: #### C BC #### [facility] [address] [place] [address] #### RPR W RFX #### [facility] , Serum or plasma albumin/glob ulin mass ratioOrdered By: Nataly Toure on 03-04-2023 Albumin/Globulin [Mass ratio] 1.4 {ratio} [facility] Comment on above: Order Comment: Reaso n for Exam Obesity, unspecified;High blood triglycerides Reason for Exam Iron deficiency Reason for Exam High blood triglycerides Reason for Exam Hypothyroidism, unspecified type Performed By: #### C BC #### [facility] [address] [place] [address] [place] #### RPR W RFX #### [facility] , Serum or plasma anion gap de terminationOrdered By: Nataly Toure on 03-04-2023 Anion gap [Moles/Vol] 11.2 mmol/L Normal 6.0-15.0 [facility] Comment on above: Order Comment: Reaso n for Exam Obesity, unspecified;High blood triglycerides Reason for Exam Iron deficiency Reason for Exam High blood triglycerides Reason for Exam Hypothyroidism, unspecified type Performed By: #### C BC #### [facility] [address] [place] [address] [place] #### RPR W RFX #### [facility] , Serum or plasma high density lipoprotein (HDL) cholesterol measurementOrdered By: Nataly Toure on 03-04-2023 Cholesterol in HDL [Mass/Vol] 35 mg/dL Normal 23-92 [facility] Comment on above: HDL CHOL ATP-III CLA [...] HIGH Performed By: #### C BC #### [facility] [address] [place] [address] #### RPR W RFX #### [facility] , Serum or plasma total choles terol/high density lipoprotein (HDL) cholesterol mass ratOrdered By: Nataly Toure on 03-04-2023 Cholesterol.total/Chol esterol in HDL [Mass ratio] 6.6 {ratio} Normal <5.0 [facility] Comment on above: Order Comment: Reaso n for Exam Obesity, unspecified;High blood triglycerides Reason for Exam Iron deficiency Reason for Exam High blood triglycerides Reason for Exam Hypothyroidism, unspecified type Performed By: #### C BC #### [facility] [address] [place] [address] [place] #### RPR W RFX #### [facility] , Sodium [Moles/volume] in Ser um or PlasmaOrdered By: Nataly Toure on 03-04-2023 Sodium [Moles/Vol] 139 mmol/L Normal 136-145 [facility] Comment on above: Order Comment: Reaso n for Exam Obesity, unspecified;High blood triglycerides Reason for Exam Iron deficiency Reason for Exam High blood triglycerides Reason for Exam Hypothyroidism, unspecified type Performed By: #### C BC #### [facility] [address] [place] [address] [place] #### RPR W RFX #### [facility] , Thyroid Stim Hormone w/Rflxo n 03-04-2023 Thyroid Stim Hormone w/Rflx 1.50 u[iU]/mL Normal 0.45-5.33 [facility] Comment on above: Order Comment: Reaso n for Exam Obesity, unspecified;High blood triglycerides Reason for Exam Iron deficiency Reason for Exam High blood triglycerides Reason for Exam Hypothyroidism, unspecified type Result Comment: PERF ORMED BY: [place] [address] PATHOLOGIST HYDROGEOLOGY PROFESSOR ALLA OROZCO M.D. Performed By: #### C USTB #### [facility] [address] [place] [address] Thyrotropin [Units/volume] i n Serum or PlasmaOrdered By: Nataly Toure on 03-04-2023 TSH Qn 1.50 m[IU]/L 0.45-5.33 [facility] Transferrin [Mass/volume] in Serum or PlasmaOrdered By: Nataly Toure on 03-04-2023 Transferrin [Mass/Vol] 268 mg/dL Normal 203-362 [facility] Comment on above: Order Comment: Reaso n for Exam Obesity, unspecified;High blood triglycerides Reason for Exam Iron deficiency Reason for Exam High blood triglycerides Reason for Exam Hypothyroidism, unspecified type Performed By: #### C BC #### [facility] [address] [place] [address] #### RPR W RFX #### [facility] , Triglyceride [Mass/volume] i n Serum or PlasmaOrdered By: Nataly Toure on 03-04-2023 Triglyceride [Mass/Vol] 863 mg/dL 0-149 [facility] Comment on above: If the triglyceride result [...] Urea nitrogen [Mass/Vol] 11 mg/dL Normal 7-25 [facility] Comment on above: Order Comment: Reaso n for Exam Obesity, unspecified;High blood triglycerides Reason for Exam Iron deficiency Reason for Exam High blood triglycerides Reason for Exam Hypothyroidism, unspecified type Performed By: #### C BC #### [facility] [address] [place] [address] #### RPR W RFX #### [facility] , Vitamin B12 ser/plasOrdered By: Nataly Toure on 03-04-2023 Cobalamin (Vitamin B12) [Mass/Vol] 303 pg/mL Normal 180-914 [facility] Comment on above: Order Comment: Reaso n for Exam Obesity, unspecified;High blood triglycerides Reason for Exam Iron deficiency Reason for Exam High blood triglycerides Reason for Exam Hypothyroidism, unspecified type Performed By: #### C USTB #### [address] Automated basophil %Ordered By: EDE WAY on 02-13-2023 Basophils/100 WBC (Bld) 0.7 % Normal . [facility] Comment on above: Performed By: #### C BC #### [address] #### RPR W RFX #### [facility] , Automated basophil countOrde red By: EDE WAY on 02-13-2023 Basophils (Bld) [#/Vol] 0.1 10*3/uL Normal 0.0-0.2 [facility] Comment on above: Result Comment: PERF ORMED BY: [place] [address] PATHOLOGIST HYDROGEOLOGY PROFESSOR ALLA OROZCO M.D. Performed By: #### C BC #### [address] #### RPR W RFX #### [facility] , Automated blood monocyte cou ntOrdered By: EDE WAY on 02-13-2023 Monocytes (Bld) [#/Vol] 0.8 10*3/uL Normal 0.0-0.8 [facility] Comment on above: Performed By: #### C BC #### [address] #### RPR W RFX #### [facility] , Automated eosinophil %Ordere d By: EDE WAY on 02-13-2023 Eosinophils/100 WBC (Bld) 0.6 % Normal . [facility] Comment on above: Performed By: #### C BC #### [place] [address] [place] #### RPR W RFX #### [facility] , Automated eosinophil countOr dered By: EDE WAY on 02-13-2023 Eosinophils (Bld) [#/Vol] 0.1 10*3/uL Normal 0.0-0.45 [facility] Comment on above: Performed By: #### C BC #### [place] [address] [place] #### RPR W RFX #### [facility] , Automated erythrocytes count in urine sediment (number/area)Ordered By: EDE WAY on 02-13-2023 RBC Auto (Urine sed) [#/Area] Innumerable [HPF] 0-4 [facility] Automated leukocytes count i n urine sediment (number/area)Ordered By: EDE WAY on 02-13-2023 WBC Auto (Urine sed) [#/Area] 5-9 [HPF] 0-4 [facility] Automated monocyte %Ordered By: EDE WAY on 02-13-2023 Monocytes/100 WBC (Bld) 8.8 % Normal . [facility] Comment on above: Performed By: #### C BC #### [place] [address] [place] #### RPR W RFX #### [facility] , Automated neutrophil %Ordere d By: EDE WAY on 02-13-2023 Neutrophils/100 WBC (Bld) 73.7 % Normal . [facility] Comment on above: Performed By: #### C BC #### [address] #### RPR W RFX #### [facility] , Automated urine color determ inationOrdered By: EDE WAY on 02-13-2023 Color (U) Bridger Critically abnormal Yellow [facility] Comment on above: Order Comment: Name Collection Type:: Voided Performed By: #### C USTB #### [address] Bilirubin Test strip Ql (U)O rdered By: EDE WAY on 02-13-2023 Bilirubin Ql (U) Negative Negative [facility] Complete Blood Count Auto Di ffon 02-13-2023 Mean Corpuscular HGB Conc 33.8 g/dL Normal 32.0-35.0 [facility] Comment on above: Performed By: #### C BC #### [address] #### RPR W RFX #### [facility] , NRBC% 0.1 /100{WBC} Normal 0-0.5 [facility] Comment on above: Performed By: #### C BC #### [facility] [address] [place] [address] [place] #### RPR W RFX #### [facility] , Dipstick and Microscopicon 1 Appearance (U) Clear Normal Clear [facility] Comment on above: Order Comment: Name Collection Type:: Voided Performed By: #### C USTB #### [address] Bacteria,Urine None Seen Normal None Seen [facility] Comment on above: Order Comment: Name Collection Type:: Voided Performed By: #### C USTB #### [address] [address] [place] Bilirubin,Urine Negative Normal Negative [facility] Comment on above: Order Comment: Name Collection Type:: Voided Performed By: #### C USTB #### [address] Glucose Ql (U) Normal Normal Normal [facility] Comment on above: Order Comment: Name Collection Type:: Voided Performed By: #### C USTB #### [address] Hyaline Casts,Urine 0-8 Normal 0-8 [facility] Comment on above: Order Comment: Name Collection Type:: Voided Result Comment: PERF ORMED BY: [place] [address] PATHOLOGIST HYDROGEOLOGY PROFESSOR ALLA OROZCO M.D. Performed By: #### C USTB #### [address] Ketones Ql (U) Trace High Negative [facility] Comment on above: Order Comment: Name Collection Type:: Voided Performed By: #### C USTB #### [address] Leukocyte esterase Test strip Ql (U) 1+ High Negative [facility] Comment on above: Order Comment: Name Collection Type:: Voided Performed By: #### C USTB #### [address] Nitrite,Urine Negative Normal Negative [facility] Comment on above: Order Comment: Name Collection Type:: Voided Performed By: #### C USTB #### [place] [address] [place] Occult Blood,Urine 3+ High Negative [facility] Comment on above: Order Comment: Name Collection Type:: Voided Result Comment: PERF ORMED BY: [place] [address] PATHOLOGIST HYDROGEOLOGY PROFESSOR ALLA OROZCO M.D. Performed By: #### C USTB #### [place] [id number] [place] RBC,Urine Innumerable High 0-4 [facility] Comment on above: Order Comment: Name Collection Type:: Voided Performed By: #### C USTB #### [address] Specificy Gardner,Urine 1.015 Normal 1.001-1.03 0 [facility] Comment on above: Order Comment: Name Collection Type:: Voided Performed By: #### C USTB #### [address] Squamous Epithelial Cell,Urine 3-4 High 0-2 [facility] Comment on above: Order Comment: Name Collection Type:: Voided Performed By: #### C USTB #### [address] Urobilinogen,Urine Normal Normal Normal [facility] Comment on above: Order Comment: Name Collection Type:: Voided Performed By: #### C USTB #### [address] WBC,Urine 5-9 High 0-4 [facility] Comment on above: Order Comment: Name Collection Type:: Voided Performed By: #### C USTB #### [address] Erythrocyte distribution wid th [Ratio] by Automated countOrdered By: EDE WAY on 02-13-2023 Erythrocyte distribution width (RBC) [Ratio] 16.2 % High 11.9-15.3 [facility] Comment on above: Performed By: #### C BC #### [address] #### RPR W RFX #### [facility] , Erythrocytes [#/volume] in B lood by Automated countOrdered By: EDE WAY on 02-13-2023 RBC (Bld) [#/Vol] 4.38 10*6/uL Normal 3.60-5.00 [facility] Comment on above: Performed By: #### C BC #### [facility] [address] [place] [address] [place] #### RPR W RFX #### [facility] , Hematocrit [Volume Fraction] of Blood by Automated countOrdered By: EDE WAY on 02-13-2023 Hematocrit (Bld) [Volume fraction] 33.2 % Low 34.0-46.4 [facility] Comment on above: Performed By: #### C BC #### [facility] [address] [place] [address] [place] #### RPR W RFX #### [facility] , Hemoglobin [Mass/volume] in BloodOrdered By: EDE WAY on 02-13-2023 Hemoglobin (Bld) [Mass/Vol] 11.2 g/dL Low 11.8-15.4 [facility] Comment on above: Performed By: #### C BC #### [facility] [address] [place] [address] [place] #### RPR W RFX #### [facility] , Ketones Auto test strip (U) [Mass/Vol]Ordered By: EDE WAY on 02-13-2023 Ketones (U) [Mass/Vol] Trace Negative [facility] 02-13-2023 L ------ Specimen: [id number] Received: 02/16/23 Status: NICK Forbes Num: [id number] Spec Type: Surgical Subm Dr: EDE WAY MD Tissues: A Placenta - 3rd Trimester (Greater than 28 weeks) (PLACENTA) Procedures: HE/3, Gross/Micro L5 Age/ Patient Sex Location Account Attending Physician Rosette Alba [id number] EDE WAY MD SPEC NUM: [id number] RECD: 02/16/23 STATUS: NICK FORBES NUM: [id number] MAURY: 02/13/23- [facility] DR: EDE WAY MD ENTERED: 02/16/230757 [facility] DR: CARLOS TYPE: Surgical DEPT: S [...] less than 5% of the cut surface. Cuff Setter sections are submitted in 3 cassettes as follows: A1 - cord and central disc A2 - membranes and marginal disc Specimen: [id number] Received: 02/16/23 Status: NICK Forbes Num: [id number] Spec Type: Surgical Subm Dr: EDE WAY MD Tissues: A Placenta - 3rd Trimester (Greater than 28 weeks) (PLACENTA) Procedures: HE/Arianna, Gross/Micro L5 Patient: Rosette Alba [id number] (Continued) Specimen: [id number] Received: 02/16/23 (Continued) Gross Description (Continued) Signed (signature on file) Ishan Richardson MD 02/17/232199 Specimen: [id number] Received: 02/16/23 Status: NICK Marcus Num: [id number] Spec Type: Surgical Subm Dr: EDE WAY MD Tissues: A Placenta - 3rd Trimester (Greater than 28 weeks) (PLACENTA) Procedures: HE/Arianna, Gross/Micro L5 Patient: Rosette Alba [id number] (Continued) Specimen: [id number] Received: 02/16/23 (Continued) Gross Description (Continued) A3 - Central lesional area Microscopic Description Three H E slides reviewed. The microscopic examination confirms the diagnosis. CPT Codes 56675 Specimen: [id number] Received: 02/16/23 Status: NICK Marcus Num: [id number] Spec Type: Surgical Subm Dr: EDE WAY MD Tissues: A Placenta - 3rd Trimester (Greater than 28 weeks) (PLACENTA) Procedures: HE/Arianna, Gross/Micro L5 Patient: Rosette Alba [id number] (Continued) Signed (signature on file) Ishan Richardson MD 02/17/232199 Normal [facility] Laboratory - UrinalysisOrder ed By: EDE WAY on 02-13-2023 Hyaline casts LM Ql (Urine sed) 0-8 [LPF] 0-8 [facility] Leukocytes [#/volume] correc kee for nucleated erythrocytes in Blood by Automated counOrdered By: EDE WAY on 02-13-2023 WBC corrected for nucl RBC Auto (Bld) [#/Vol] 9.1 10*3/uL 3.8-11.6 [facility] Leukocytes [#/volume] in Blo od by Automated countOrdered By: EDE WAY on 02-13-2023 WBC (Bld) [#/Vol] 9.1 10*3/uL Normal 3.8-11.6 [facility] Comment on above: Performed By: #### C BC #### [address] #### RPR W RFX #### [facility] , Lymphocytes [#/volume] in Bl ood by Automated countOrdered By: EDE WAY on 02-13-2023 Lymphocytes (Bld) [#/Vol] 1.5 10*3/uL Normal 1.00-4.8 [facility] Comment on above: Performed By: #### C BC #### [place] [address] [place] #### RPR W RFX #### [facility] , Lymphocytes/100 leukocytes i n Blood by Automated countOrdered By: EDE WAY on 02-13-2023 Lymphocytes/100 WBC (Bld) 16.2 % Normal . [facility] Comment on above: Performed By: #### C BC #### [facility] [address] [place] [address] [place] #### RPR W RFX #### [facility] , MCH [Entitic mass] by Automa kee countOrdered By: EDE WAY on 02-13-2023 MCH (RBC) [Entitic mass] 25.6 pg Normal 24.7-34.3 [facility] Comment on above: Performed By: #### C BC #### [place] [address] [place] #### RPR W RFX #### [facility] , MCHC Auto (RBC) [Mass/Vol]Or dered By: EDE WAY on 02-13-2023 MCHC (RBC) [Mass/Vol] 33.8 g/dL 32.0-35.[address] [facility] MCV [Entitic volume] by Auto mated countOrdered By: EDE WAY on 02-13-2023 MCV (RBC) [Entitic vol] 75.7 fL Low 80-100 [facility] Comment on above: Performed By: #### C BC #### [address] #### RPR W RFX #### [facility] , Neutrophils [#/volume] in Bl ood by Automated countOrdered By: EDE WAY on 02-13-2023 Neutrophils (Bld) [#/Vol] 6.7 10*3/uL Normal 1.8-7.7 [facility] Comment on above: Performed By: #### C BC #### [place] [address] [place] #### RPR W RFX #### [facility] , Nitrite Test strip Ql (U)Ord ered By: EDE WAY on 02-13-2023 Nitrite Ql (U) Negative Negative [facility] Nucleated erythrocytes [Pres ence] in Blood by Automated countOrdered By: EDE WAY on 02-13-2023 Nucleated RBC Auto Ql (Bld) 0.1 /100{WBC} 0-0.5 [facility] Platelet mean volume [Entiti c volume] in Blood by Automated countOrdered By: EDE WAY on 02-13-2023 Platelet mean volume (Bld) [Entitic vol] 8.5 fL Normal 6.3-10.7 [facility] Comment on above: Performed By: #### C BC #### [place] [address] [place] #### RPR W RFX #### [facility] , Platelets [#/volume] in Bloo d by Automated countOrdered By: EDE WAY on 02-13-2023 Platelets (Bld) [#/Vol] 178 10*3/uL Normal 150-450 [facility] Comment on above: Performed By: #### C BC #### [facility] [address] [place] [address] #### RPR W RFX #### [facility] , RPR w/rfx to Quant TP Abson 02-13-2023 RPR, Rfx Quant RPR Non-Reactive Normal Non Reactive [facility] Comment on above: Result Comment: Perf ormed at: [facility] [place] [id number] Nipping Machine Operator: Sam Lopez PhD, Phone: [phone] PERFORMED BY: [place] [address] PATHOLOGIST HYDROGEOLOGY PROFESSOR ALLA OROZCO M.D. Performed By: #### C BC #### [facility] [address] [place] [address] #### RPR W RFX #### [facility] , Reagin Ab [Presence] in Seru m by RPROrdered By: EDE WAY on 02-13-2023 Reagin Ab RPR Ql (S) Non-Reactive Non Reactive [facility] Comment on above: Performed at: [facility] [address] [id number] Director: Sam Lopez PhD, Phone: [phone] Specific gravity Auto test s trip (U) [Rel density]Ordered By: EDE WAY on 02-13-2023 Specific gravity (U) [Rel density] 1.015 1.001-1.03 0 [facility] Squamous epithelial cells de tection in urine sediment by light microscopyOrdered By: EDE WAY on 02-13-2023 Epithelial cells.squamous LM Ql (Urine sed) 3-4 [HPF] 0-2 [facility] Urine Cultureon 02-13-2023 Bacteria identified Cx Nom (U) No Growth 2 Days PERFORMED BY: [facility] [address] [place] [address] PATHOLOGIST HYDROGEOLOGY PROFESSOR ALLA OROZCO M.D. Normal [facility] Comment on above: Performed By: #### C USTB #### [facility] [address] Urine bacteria detection by automated methodOrdered By: EDE WAY on 02-13-2023 Bacteria Auto Ql (U) None seen None Seen [facility] Urine clarity by refractomet ry automatedOrdered By: EDE WAY on 02-13-2023 Clarity Refractometry automated (U) Clear Clear [facility] Urine culture routineOrdered By: EDE WAY on 02-13-2023 Bacteria identified Cx Nom (U) No Growth 2 Days [facility] Urine glucose measurement by automated test strip (mass/volume)Ordered By: EDE WAY on 02-13-2023 Glucose Auto test strip (U) [Mass/Vol] Normal mg/dL Normal [facility] Urine hemoglobin detection b y automated test stripOrdered By: EDE WAY on 02-13-2023 Hemoglobin Auto test strip Ql (U) 3+ Negative [facility] Urine leukocyte esterase det ection by automated test stripOrdered By: EDE WAY on 02-13-2023 Leukocyte esterase Auto test strip Ql (U) 1+ Negative [facility] Urine pH measurement by auto mated test stripOrdered By: EDE WAY on 02-13-2023 pH (U) 6.5 [pH] Normal 5.0-9.0 [facility] Comment on above: Order Comment: Name Collection Type:: Voided Performed By: #### C USTB #### [facility] [address] Urine protein measurement by automated test strip (mass/volume)Ordered By: EDE WAY on 02-13-2023 Protein (U) [Mass/Vol] 30 mg/dL High Negative [facility] Comment on above: Order Comment: Name Collection Type:: Voided Performed By: #### C USTB #### [facility] [address] [place] [id number] [facility] Urobilinogen Auto test strip (U) [Mass/Vol]Ordered By: EDE WAY on 02-13-2023 Urobilinogen (U) [Mass/Vol] Normal mg/dL Normal [facility] Amphetamine Screen Ql (U)Ord ered By: Radha Molina on 02-01-2023 Amphetamines Ql (U) Negative Negative [facility] Automated erythrocytes count in urine sediment (number/area)Ordered By: Radha Molina on 02-01-2023 RBC Auto (Urine sed) [#/Area] 3-4 [HPF] 0-4 [facility] Automated leukocytes count i n urine sediment (number/area)Ordered By: Radha Molina on 02-01-2023 WBC Auto (Urine sed) [#/Area] 10-19 [HPF] 0-4 [facility] Automated urine color determ inationOrdered By: Radha Molina on 02-01-2023 Color (U) Yellow Normal Yellow [facility] Comment on above: Order Comment: Name Collection Type:: Clean-Voided Midstream Performed By: #### C USTB #### [facility] [address] [place] [address] Automated urine sediment esteban cium oxalate crystal count by microscopy (number/high powOrdered By: Radha Molina on 02-01-2023 Calcium oxalate crystals LM.HPF (Urine sed) [#/Area] 3+ [HPF] [facility] Barbiturates [Presence] in U rine by Screen methodOrdered By: Radha Molina on 02-01-2023 Barbiturates Screen Ql (U) Negative Negative [facility] Benzodiazepines Screen Ql (U )Ordered By: Radha Molina on 02-01-2023 Benzodiazepines Ql (U) Negative Negative [facility] Benzoylecgonine [Presence] i n Urine by Screen methodOrdered By: Radha Molina on 02-01-2023 Benzoylecgonine Screen Ql (U) Negative Negative [facility] Bilirubin Test strip Ql (U)O rdered By: Radha Molina on 02-01-2023 Bilirubin Ql (U) Negative Negative [facility] Dipstick and Microscopicon 1 04-04-2022 Appearance (U) Cloudy Critically abnormal Clear [facility] Comment on above: Order Comment: Name Collection Type:: Clean-Voided Midstream Performed By: #### C USTB #### [address] Bacteria,Urine 1+ High None Seen [facility] Comment on above: Order Comment: Name Collection Type:: Clean-Voided Midstream Performed By: #### C USTB #### [place] [address] [place] Bilirubin,Urine Negative Normal Negative [facility] Comment on above: Order Comment: Name Collection Type:: Clean-Voided Midstream Performed By: #### C USTB #### [address] Calcium Oxalate Crystals,Urine 3+ Normal [facility] Comment on above: Order Comment: Name Collection Type:: Clean-Voided Midstream Performed By: #### C USTB #### [place] [address] [place] Glucose Ql (U) Normal Normal Normal [facility] Comment on above: Order Comment: Name Collection Type:: Clean-Voided Midstream Performed By: #### C USTB #### [place] [address] [place] Hyaline Casts,Urine 0-8 Normal 0-8 [facility] Comment on above: Order Comment: Name Collection Type:: Clean-Voided Midstream Result Comment: PERF ORMED BY: [place] [address] PATHOLOGIST HYDROGEOLOGY PROFESSOR ALLA OROZCO M.D. Performed By: #### C USTB #### [place] [address] [place] Ketones Ql (U) Trace High Negative [facility] Comment on above: Order Comment: Name Collection Type:: Clean-Voided Midstream Performed By: #### C USTB #### [facility] [address] Leukocyte esterase Test strip Ql (U) 2+ High Negative [facility] Comment on above: Order Comment: Name Collection Type:: Clean-Voided Midstream Performed By: #### C USTB #### [place] [address] [place] Nitrite,Urine Negative Normal Negative [facility] Comment on above: Order Comment: Name Collection Type:: Clean-Voided Midstream Performed By: #### C USTB #### [address] Occult Blood,Urine Negative Normal Negative [facility] Comment on above: Order Comment: Name Collection Type:: Clean-Voided Midstream Result Comment: PERF ORMED BY: [place] [address] PATHOLOGIST HYDROGEOLOGY PROFESSOR ALLA OROZCO M.D. Performed By: #### C USTB #### [place] [address] [place] Othe Crystals,Urine None Seen Normal [facility] Comment on above: Order Comment: Name Collection Type:: Clean-Voided Midstream Performed By: #### C USTB #### [place] [address] [place] Protein,Urine Trace High Negative [facility] Comment on above: Order Comment: Name Collection Type:: Clean-Voided Midstream Performed By: #### C USTB #### [place] [address] [place] RBC,Urine 3-4 Normal 0-4 [facility] Comment on above: Order Comment: Name Collection Type:: Clean-Voided Midstream Performed By: #### C USTB #### [place] [address] [place] Specificy [place],Urine 1.025 Normal 1.001-1.03 0 [facility] Comment on above: Order Comment: Name Collection Type:: Clean-Voided Midstream Performed By: #### C USTB #### [place] [address] [place] Squamous Epithelial Cell,Urine 10-19 High 0-2 [facility] Comment on above: Order Comment: Name Collection Type:: Clean-Voided Midstream Performed By: #### C USTB #### [address] Urobilinogen,Urine Normal Normal Normal [facility] Comment on above: Order Comment: Name Collection Type:: Clean-Voided Midstream Performed By: #### C USTB #### [address] WBC,Urine 10-19 High 0-4 [facility] Comment on above: Order Comment: Name Collection Type:: Clean-Voided Midstream Performed By: #### C USTB #### [address] Ketones Auto test strip (U) [Mass/Vol]Ordered By: Radha Molina on 02-01-2023 Ketones (U) [Mass/Vol] Trace Negative [facility] Laboratory - UrinalysisOrder ed By: Radha Molina on 02-01-2023 Hyaline casts LM Ql (Urine sed) 0-8 [LPF] 0-8 [facility] Nitrite Test strip Ql (U)Ord ered By: Radha Molina on 02-01-2023 Nitrite Ql (U) Negative Negative [facility] OB Urine Drug Screen (NO THC )on 02-01-2023 Amphetamine Screen,Urine Negative Normal Negative [facility] Comment on above: Performed By: #### C USTB #### [address] Barbiturate Screen,Urine Negative Normal Negative [facility] Comment on above: Performed By: #### C USTB #### [place] [address] [place] Benzodiazepines Screen,Urine Negative Normal Negative [facility] Comment on above: Performed By: #### C USTB #### [address] Cocaine Screen,Urine Negative Normal Negative [facility] Comment on above: Performed By: #### C USTB #### [facility] [address] Opiate Screen,Urine Negative Normal Negative [facility] Comment on above: Performed By: #### C USTB #### [facility] [address] Phencyclidine Screen, Urine Negative Normal Negative [facility] Comment on above: Result Comment: Thes e are unconfirmed results and should not be used for legal purposes. Drug Cut-Off Concentration: AMPH 1000 ng/mL FAVIOLA 200 ng/mL THA 200 ng/mL COCM 300 ng/mL OP 300 ng/mL PCP 25 ng/mL PERFORMED BY: [place] [address] PATHOLOGIST HYDROGEOLOGY PROFESSOR ALLA OROZCO M.D. Performed By: #### C USTB #### [address] Opiates [Presence] in Urine by Screen methodOrdered By: Radha Molina on 02-01-2023 Opiates Screen Ql (U) Negative Negative [facility] Phencyclidine Screen Ql (U)O rdered By: Radha Molina on 02-01-2023 Phencyclidine Ql (U) Negative Negative [facility] Comment on above: These are unconfirme d results and should not be used for legal purposes. Drug Cut-Off Concentration: AMPH 1000 ng/mL FAVIOLA 200 ng/mL THA 200 ng/mL COCM 300 ng/mL OP 300 ng/mL PCP 25 ng/mL Protein Auto test strip (U) [Mass/Vol]Ordered By: Radha Molina on 02-01-2023 Protein (U) [Mass/Vol] Trace mg/dL Negative [facility] Specific gravity Auto test s trip (U) [Rel density]Ordered By: Radha Molina on 02-01-2023 Specific gravity (U) [Rel density] 1.025 1.001-1.03 0 [facility] Squamous epithelial cells de tection in urine sediment by light microscopyOrdered By: Radha Molina on 02-01-2023 Epithelial cells.squamous LM Ql (Urine sed) 10-19 [HPF] 0-2 [facility] Urine Cultureon 02-01-2023 Bacteria identified Cx Nom (U) <9,000 colonies/ml mixed bacterial skin contaminants 2 Days PERFORMED BY: [place] [address] PATHOLOGIST HYDROGEOLOGY PROFESSOR ALLA OROZCO M.D. Normal [facility] Comment on above: Performed By: #### C USTB #### [facility] [address] [place] [address] Urine bacteria detection by automated methodOrdered By: Radha Molina on 02-01-2023 Bacteria Auto Ql (U) 1+ None Seen [facility] Urine clarity by refractomet ry automatedOrdered By: Radha Molina on 02-01-2023 Clarity Refractometry automated (U) Cloudy Clear [facility] Urine culture routineOrdered By: Radha Molina on 02-01-2023 Bacteria identified Cx Nom (U) 2 Days [facility] Urine glucose measurement by automated test strip (mass/volume)Ordered By: Radha Molina on 02-01-2023 Glucose Auto test strip (U) [Mass/Vol] Normal mg/dL Normal [facility] Urine hemoglobin detection b y automated test stripOrdered By: Radha Molina on 02-01-2023 Hemoglobin Auto test strip Ql (U) Negative Negative [facility] Urine leukocyte esterase det ection by automated test stripOrdered By: Radha Molina on 02-01-2023 Leukocyte esterase Auto test strip Ql (U) 2+ Negative [facility] Urine pH measurement by auto mated test stripOrdered By: Radha Molina on 02-01-2023 pH (U) 6.0 [pH] Normal 5.0-9.0 [facility] Comment on above: Order Comment: Name Collection Type:: Clean-Voided Midstream Performed By: #### C USTB #### [facility] [address] [place] [address] Urine sediment crystal ident ification by light microscopyOrdered By: Radha Molina on 02-01-2023 Crystals LM Nom (Urine sed) None seen [HPF] [facility] Urobilinogen Auto test strip (U) [Mass/Vol]Ordered By: Radha Molina on 02-01-2023 Urobilinogen (U) [Mass/Vol] Normal mg/dL Normal [facility] Amphetamine Screen Ql (U)Ord ered By: MARY KAY CANTU on 01-30-2023 Amphetamines Ql (U) Negative Negative [facility] Automated erythrocytes count in urine sediment (number/area)Ordered By: MARY KAY CANTU on 01-30-2023 RBC Auto (Urine sed) [#/Area] 0-1 [HPF] 0-4 [facility] Automated leukocytes count i n urine sediment (number/area)Ordered By: MARY KAY CANTU on 01-30-2023 WBC Auto (Urine sed) [#/Area] 3-4 [HPF] 0-4 [facility] Automated urine color determ inationOrdered By: MARY KAY CANTU on 01-30-2023 Color (U) Yellow Normal Yellow [facility] Comment on above: Order Comment: Name Collection Type:: Clean-Voided Midstream Performed By: #### O BUDS, ADDONUAPLUS #### [address] Barbiturates [Presence] in U rine by Screen methodOrdered By: MARY KAY CANTU on 01-30-2023 Barbiturates Screen Ql (U) Negative Negative [facility] Benzodiazepines Screen Ql (U )Ordered By: MARY KAY CANTU on 01-30-2023 Benzodiazepines Ql (U) Negative Negative [facility] Benzoylecgonine [Presence] i n Urine by Screen methodOrdered By: MARY KAY CANTU on 01-30-2023 Benzoylecgonine Screen Ql (U) Negative Negative [facility] Bilirubin Test strip Ql (U)O rdered By: MARY KAY CANTU on 01-30-2023 Bilirubin Ql (U) Negative Negative [facility] Dipstick and Microscopicon 1 04-02-2022 Appearance (U) Clear Normal Clear [facility] Comment on above: Order Comment: Name Collection Type:: Clean-Voided Midstream Performed By: #### O BUDS, ADDONUAPLUS #### [place] [address] [place] Bacteria,Urine None Seen Normal None Seen [facility] Comment on above: Order Comment: Name Collection Type:: Clean-Voided Midstream Performed By: #### O BUDS, ADDONUAPLUS #### [address] Bilirubin,Urine Negative Normal Negative [facility] Comment on above: Order Comment: Name Collection Type:: Clean-Voided Midstream Performed By: #### O BUDS, ADDONUAPLUS #### [address] Glucose Ql (U) Normal Normal Normal [facility] Comment on above: Order Comment: Name Collection Type:: Clean-Voided Midstream Performed By: #### O BUDS, ADDONUAPLUS #### [place] [address] [place] Hyaline Casts,Urine 0-8 Normal 0-8 [facility] Comment on above: Order Comment: Name Collection Type:: Clean-Voided Midstream Result Comment: PERF ORMED BY: [place] [address] PATHOLOGIST HYDROGEOLOGY PROFESSOR ALLA OROZCO M.D. Performed By: #### O BUDS, ADDONUAPLUS #### [address] Ketones Ql (U) Negative Normal Negative [facility] Comment on above: Order Comment: Name Collection Type:: Clean-Voided Midstream Performed By: #### O BUDS, ADDONUAPLUS #### [place] [address] [place] Leukocyte esterase Test strip Ql (U) 2+ High Negative [facility] Comment on above: Order Comment: Name Collection Type:: Clean-Voided Midstream Performed By: #### O BUDS, ADDONUAPLUS #### [address] Nitrite,Urine Negative Normal Negative [facility] Comment on above: Order Comment: Name Collection Type:: Clean-Voided Midstream Performed By: #### O BUDS, ADDONUAPLUS #### [address] Occult Blood,Urine Negative Normal Negative [facility] Comment on above: Order Comment: Name Collection Type:: Clean-Voided Midstream Result Comment: PERF ORMED BY: [place] [address] PATHOLOGIST HYDROGEOLOGY PROFESSOR ALLA OROZCO M.D. Performed By: #### O BUDS, ADDONUAPLUS #### [address] Protein,Urine Negative Normal Negative [facility] Comment on above: Order Comment: Name Collection Type:: Clean-Voided Midstream Performed By: #### O BUDS, ADDONUAPLUS #### [place] [address] [place] RBC LM.HPF (Urine sed) [#/Area] 0 /[HPF] Normal 0-4 [facility] Comment on above: Order Comment: Name Collection Type:: Clean-Voided Midstream Performed By: #### O BUDS, ADDONUAPLUS #### [address] Specificy [place],Urine 1.017 Normal 1.001-1.03 0 [facility] Comment on above: Order Comment: Name Collection Type:: Clean-Voided Midstream Performed By: #### O BUDS, ADDONUAPLUS #### [place] [address] [place] Squamous Epithelial Cell,Urine 1-2 Normal 0-2 [facility] Comment on above: Order Comment: Name Collection Type:: Clean-Voided Midstream Performed By: #### O BUDS, ADDONUAPLUS #### [address] Urobilinogen,Urine Normal Normal Normal [facility] Comment on above: Order Comment: Name Collection Type:: Clean-Voided Midstream Performed By: #### O BUDS, ADDONUAPLUS #### [place] [address] [place] WBC,Urine 3-4 Normal 0-4 [facility] Comment on above: Order Comment: Name Collection Type:: Clean-Voided Midstream Performed By: #### O BUDS, ADDONUAPLUS #### [address] Ketones Auto test strip (U) [Mass/Vol]Ordered By: MARY KAY CANTU on 01-30-2023 Ketones (U) [Mass/Vol] Negative Negative [facility] - UrinalysisOrder ed By: MARY KAY CANTU on 01-30-2023 Hyaline casts LM Ql (Urine sed) 0-8 [LPF] 0-8 [facility] Nitrite Test strip Ql (U)Ord ered By: MARY KAY CANTU on 01-30-2023 Nitrite Ql (U) Negative Negative [facility] OB Urine Drug Screen (NO THC )on 01-30-2023 Amphetamine Screen,Urine Negative Normal Negative [facility] Comment on above: Performed By: #### O BUDS, ADDONUAPLUS #### [place] [address] [place] Barbiturate Screen,Urine Negative Normal Negative [facility] Comment on above: Performed By: #### O BUDS, ADDONUAPLUS #### [place] [address] [place] Benzodiazepines Screen,Urine Negative Normal Negative [facility] Comment on above: Performed By: #### O BUDS, ADDONUAPLUS #### [place] [address] [place] Cocaine Screen,Urine Negative Normal Negative [facility] Comment on above: Performed By: #### O BUDS, ADDONUAPLUS #### [place] [address] [place] Opiate Screen,Urine Negative Normal Negative [facility] Comment on above: Performed By: #### O BUDS, ADDONUAPLUS #### [place] [address] [place] Phencyclidine Screen, Urine Negative Normal Negative [facility] Comment on above: Result Comment: Thes e are unconfirmed results and should not be used for legal purposes. Drug Cut-Off Concentration: AMPH 1000 ng/mL FAVIOLA 200 ng/mL THA 200 ng/mL COCM 300 ng/mL OP 300 ng/mL PCP 25 ng/mL PERFORMED BY: [place] [address] PATHOLOGIST HYDROGEOLOGY PROFESSOR ALLA OROZCO M.D. Performed By: #### O BUDS, ADDONUAPLUS #### [address] Opiates [Presence] in Urine by Screen methodOrdered By: MARY KAY CANTU on 01-30-2023 Opiates Screen Ql (U) Negative Negative [facility] Phencyclidine Screen Ql (U)O rdered By: MARY KAY CANTU on 01-30-2023 Phencyclidine Ql (U) Negative Negative [facility] Comment on above: These are unconfirme d results and should not be used for legal purposes. Drug Cut-Off Concentration: AMPH 1000 ng/mL FAVIOLA 200 ng/mL THA 200 ng/mL COCM 300 ng/mL OP 300 ng/mL PCP 25 ng/mL Protein Auto test strip (U) [Mass/Vol]Ordered By: MARY KAY CANTU on 01-30-2023 Protein (U) [Mass/Vol] Negative Negative [facility] Specific gravity Auto test s trip (U) [Rel density]Ordered By: MARY KAY CANTU on 01-30-2023 Specific gravity (U) [Rel density] 1.017 1.001-1.03 0 [facility] Squamous epithelial cells de tection in urine sediment by light microscopyOrdered By: MARY KAY CANTU on 01-30-2023 Epithelial cells.squamous LM Ql (Urine sed) 1-2 [HPF] 0-2 [facility] Urine bacteria detection by automated methodOrdered By: MARY KAY CANTU on 01-30-2023 Bacteria Auto Ql (U) None seen None Seen [facility] Urine clarity by refractomet ry automatedOrdered By: MARY KAY CANTU on 01-30-2023 Clarity Refractometry automated (U) Clear Clear [facility] Urine glucose measurement by automated test strip (mass/volume)Ordered By: MARY KAY CANTU on 01-30-2023 Glucose Auto test strip (U) [Mass/Vol] Normal mg/dL Normal [facility] Urine hemoglobin detection b y automated test stripOrdered By: MARY KAY CANTU on 01-30-2023 Hemoglobin Auto test strip Ql (U) Negative Negative [facility] Urine leukocyte esterase det ection by automated test stripOrdered By: MARY KAY CANTU on 01-30-2023 Leukocyte esterase Auto test strip Ql (U) 2+ Negative [facility] Urine pH measurement by auto mated test stripOrdered By: MARY KAY CANTU on 01-30-2023 pH (U) 6.5 [pH] Normal 5.0-9.0 [facility] Comment on above: Order Comment: Name Collection Type:: Clean-Voided Midstream Performed By: #### O BUDS, ADDONUAPLUS #### [facility] [address] [place] [address] Urobilinogen Auto test strip (U) [Mass/Vol]Ordered By: MARY KAY CANTU on 01-30-2023 Urobilinogen (U) [Mass/Vol] Normal mg/dL Normal [facility] S. agalactiae Org specific c x Ql (Unsp spec)Ordered By: Radha Molina on 01-05-2023 Group B Streptococcus Culture Strep. agalactiae Grp B [facility] Strep B Cultureon 01-05-2023 Strep B Culture ORGANISM: Strep. agalactiae Grp B (O:B) PERFORMED BY: [place] [address] PATHOLOGIST HYDROGEOLOGY PROFESSOR ALLA OROZCO M.D. Normal [facility] Comment on above: Performed By: #### C USTB #### [facility] [address] [place] [address] Glucose Tolerance 3 Houron 1 02-21-2022 Glucose Tolerance 3 Hour Normal [facility] Comment on above: Result Comment: FAST ING 88 Col: 12/22/22 0803 1HR GLU 146 Col: 12/22/22 1017 2HR GLU 126 Col: 12/22/22 1117 3HR GLU 144 Col: 12/22/22 1217 NON-GESTATIONAL GESTATIONAL FASTING 70-100 < 92 1 HOUR < 200 < 180 2 HOUR < 140 < 153 3 HOUR NOT ESTABLISHED < 140 PERFORMED BY: [place] [address] PATHOLOGIST HYDROGEOLOGY PROFESSOR ALLA OROZCO M.D. Performed By: #### G TT3 #### [address] Serum or plasma glucose tole nabeel 3 hours panelOrdered By: Radha Molina on 12-22-2022 Glucose tolerance 3 hours panel See comment [facility] Comment on above: FASTING 88 Col: 09/06 0803 1HR GLU 146 Col: 12/22/22 1017 2HR GLU 126 Col: 12/22/22 1117 3HR GLU 144 Col: 12/22/22 1217 fibronectinOrdered By: Radha Molina on 12-08-2022 Fibronectin. (Vag fld) [Mass/Vol] Negative Negative [facility] Alanine aminotransferase [En zymatic activity/volume] in Serum or PlasmaOrdered By: Nataly Toure on 12-03-2022 ALT [Catalytic activity/Vol] 7 U/L 7-52 [facility] Albumin [Mass/volume] in Ser um or Plasma by Bromocresol green (BCG) dye binding methoOrdered By: Nataly Toure on 12-03-2022 Albumin BCG dye [Mass/Vol] 3.4 g/dL 3.5-5.7 [facility] Alkaline phosphatase [Enzyma tic activity/volume] in Serum or PlasmaOrdered By: Nataly Toure on 12-03-2022 ALP [Catalytic activity/Vol] 79 U/L 34-104 [facility] Aspartate aminotransferase [ Enzymatic activity/volume] in Serum or PlasmaOrdered By: Nataly Toure on 12-03-2022 AST [Catalytic activity/Vol] 9 U/L 13-39 [facility] Basophils Auto (Bld) [#/Vol] Ordered By: Nataly Toure on 12-03-2022 Basophils (Bld) [#/Vol] 0.0 10*3/uL 0.0-0.2 [facility] Basophils/100 WBC Auto (Bld) Ordered By: Nataly Toure on 12-03-2022 Basophils/100 WBC (Bld) 0.1 % . [facility] Bilirubin.total [Mass/volume ] in Serum or PlasmaOrdered By: Nataly Toure on 12-03-2022 Bilirubin [Mass/Vol] 0.2 mg/dL 0.3-1.0 [facility] Calcium [Mass/volume] in Ser um or PlasmaOrdered By: Nataly Toure on 12-03-2022 Calcium [Mass/Vol] 8.9 mg/dL 8.6-10.3 [facility] Carbon dioxide, total [Moles /volume] in Serum or PlasmaOrdered By: Nataly Toure on 12-03-2022 CO2 [Moles/Vol] 21.9 mmol/L 21.0-31.0 [facility] Chloride [Moles/volume] in S rosa or PlasmaOrdered By: Nataly Toure on 12-03-2022 Chloride [Moles/Vol] 102 mmol/L 98-107 [facility] Creatinine [Mass/volume] in Serum or PlasmaOrdered By: Nataly Toure on 12-03-2022 Creatinine [Mass/Vol] 0.49 mg/dL 0.60-1.[address] [facility] Eosinophils Auto (Bld) [#/Vo l]Ordered By: Nataly Toure on 12-03-2022 Eosinophils (Bld) [#/Vol] 0.0 10*3/uL 0.0-0.45 [facility] Eosinophils/100 WBC Auto (Bl d)Ordered By: Nataly Toure on 12-03-2022 Eosinophils/100 WBC (Bld) 0.3 % . [facility] Erythrocyte distribution wid th Auto (RBC) [Ratio]Ordered By: Nataly Toure on 12-03-2022 Erythrocyte distribution width (RBC) [Ratio] 14.4 % 11.9-15.3 [facility] Globulin Calc (S) [Mass/Vol] Ordered By: Nataly Toure on 12-03-2022 Globulin (S) [Mass/Vol] 3.3 g/dL [facility] Glucose [Mass/volume] in Ser um or PlasmaOrdered By: Nataly Toure on 12-03-2022 Glucose [Mass/Vol] 94 mg/dL 70-100 [facility] Comment on above: ADA recommended refe rence rangeRandom Glucose Reference Range is dependent on time and content of last meal. Glucose of more than 200 mg/dL in a nonstressed, ambulatory subject supports the diagnosis of Diabetes Mellitus. Hematocrit Auto (Bld) [Volum e fraction]Ordered By: Nataly Toure on 12-03-2022 Hematocrit (Bld) [Volume fraction] 33.8 % 34.0-46.4 [facility] Hemoglobin [Mass/volume] in BloodOrdered By: Nataly Toure on 12-03-2022 Hemoglobin (Bld) [Mass/Vol] 11.0 g/dL 11.8-15.4 [facility] Iron [Mass/volume] in Serum or PlasmaOrdered By: Nataly Toure on 12-03-2022 Iron [Mass/Vol] 38 ug/dL 50-212 [facility] Iron binding capacity [Mass/ volume] in Serum or PlasmaOrdered By: Nataly Toure on 12-03-2022 Iron binding capacity [Mass/Vol] 587 ug/dL 255-450 [facility] Iron saturation [Mass Fracti on] in Serum or PlasmaOrdered By: Nataly Toure on 12-03-2022 Iron saturation [Mass fraction] 6.5 % 20-50 [facility] Leukocytes [#/volume] correc kee for nucleated erythrocytes in Blood by Automated counOrdered By: Nataly Toure on 12-03-2022 WBC corrected for nucl RBC Auto (Bld) [#/Vol] 11.2 10*3/uL 3.8-11.6 [facility] Lymphocytes Auto (Bld) [#/Vo l]Ordered By: Nataly Toure on 12-03-2022 Lymphocytes (Bld) [#/Vol] 1.8 10*3/uL 1.00-4.8 [facility] Lymphocytes/100 WBC Auto (Bl d)Ordered By: Nataly Toure on 12-03-2022 Lymphocytes/100 WBC (Bld) 16.0 % . [facility] MCH Auto (RBC) [Entitic mass ]Ordered By: Nataly Toure on 12-03-2022 MCH (RBC) [Entitic mass] 26.0 pg 24.7-34.3 [facility] MCHC Auto (RBC) [Mass/Vol]Or dered By: Natayl Toure on 12-03-2022 MCHC (RBC) [Mass/Vol] 32.5 g/dL 32.0-35.[address] [facility] MCV Auto (RBC) [Entitic vol] Ordered By: Nataly Toure on 12-03-2022 MCV (RBC) [Entitic vol] 80.1 fL 80-100 [facility] Magnesium [Mass/volume] in S rosa or PlasmaOrdered By: Nataly Toure on 12-03-2022 Magnesium [Mass/Vol] 1.7 mg/dL 1.9-2.7 [facility] Monocytes Auto (Bld) [#/Vol] Ordered By: Nataly Toure on 12-03-2022 Monocytes (Bld) [#/Vol] 0.8 10*3/uL 0.0-0.8 [facility] Monocytes/100 WBC Auto (Bld) Ordered By: Nataly Toure on 12-03-2022 Monocytes/100 WBC (Bld) 6.9 % . [facility] Neutrophils Auto (Bld) [#/Vo l]Ordered By: Nataly Toure on 12-03-2022 Neutrophils (Bld) [#/Vol] 8.6 10*3/uL 1.8-7.7 [facility] Neutrophils/100 WBC Auto (Bl d)Ordered By: Nataly Toure on 12-03-2022 Neutrophils/100 WBC (Bld) 76.7 % . [facility] No Panel InformationOrdered By: Nataly Toure on 12-03-2022 Estimated GFR (CKD-EPI) > 60.0 mL/Min [facility] Creatinine Clearance (Chem N/A [facility] Nucleated erythrocytes [Pres ence] in Blood by Automated countOrdered By: Nataly Toure on 12-03-2022 Nucleated RBC Auto Ql (Bld) 0.0 /100{WBC} 0-0.5 [facility] Platelet mean volume Auto (B ld) [Entitic vol]Ordered By: Nataly Toure on 12-03-2022 Platelet mean volume (Bld) [Entitic vol] 9.0 fL 6.3-10.7 [facility] Platelets Auto (Bld) [#/Vol] Ordered By: Nataly Toure on 12-03-2022 Platelets (Bld) [#/Vol] 205 10*3/uL 150-450 [facility] Potassium [Moles/volume] in Serum or PlasmaOrdered By: Nataly Toure on 12-03-2022 Potassium [Moles/Vol] 3.8 mmol/L 3.5-5.[address] [facility] Protein [Mass/volume] in Ser um or PlasmaOrdered By: Nataly Toure on 12-03-2022 Protein [Mass/Vol] 6.7 g/dL 6.4-8.9 [facility] RBC Auto (Bld) [#/Vol]Ordere d By: Nataly Toure on 12-03-2022 RBC (Bld) [#/Vol] 4.22 10*6/uL 3.60-5.00 [facility] Serum or plasma albumin/glob ulin mass ratioOrdered By: Nataly Toure on 12-03-2022 Albumin/Globulin [Mass ratio] 1.0 {ratio} [facility] Serum or plasma anion gap de terminationOrdered By: Nataly Toure on 12-03-2022 Anion gap [Moles/Vol] 17.9 mmol/L 6.0-15.0 [facility] Sodium [Moles/volume] in Ser um or PlasmaOrdered By: Nataly Toure on 12-03-2022 Sodium [Moles/Vol] 138 mmol/L 136-145 [facility] Thyrotropin [Units/volume] i n Serum or PlasmaOrdered By: Nataly Toure on 12-03-2022 TSH Qn 2.65 m[IU]/L 0.45-5.33 [facility] Transferrin [Mass/volume] in Serum or PlasmaOrdered By: Nataly Toure on 12-03-2022 Transferrin [Mass/Vol] 419 mg/dL 203-362 [facility] Urea nitrogen [Mass/volume] in Serum or PlasmaOrdered By: Nataly Toure on 12-03-2022 Urea nitrogen [Mass/Vol] 11 mg/dL 7-25 [facility] WBC Auto (Bld) [#/Vol]Ordere d By: Nataly Toure on 12-03-2022 WBC (Bld) [#/Vol] 11.2 10*3/uL 3.8-11.6 [facility] Activated partial thrombopla stin time (aPTT) in platelet poor plasma by coagulation aOrdered By: Staci Ortiz on 12-01-2022 aPTT Coag (PPP) [Time] 26.8 s 25.1-36.5 [facility] Comment on above: A hematocrit value g reater than 55% may lead to inaccurate results in coagulation testing. Patients having hematocrit values >55% require a special collection tube for coagulation studies. Please contact the laboratory at [phone] for redraw instructions. Automated erythrocytes count in urine sediment (number/area)Ordered By: Staci Ortiz on 12-01-2022 RBC Auto (Urine sed) [#/Area] 0-1 [HPF] 0-4 [facility] Automated leukocytes count i n urine sediment (number/area)Ordered By: Staci Ortiz on 12-01-2022 WBC Auto (Urine sed) [#/Area] 3-4 [HPF] 0-4 [facility] Basophils Auto (Bld) [#/Vol] Ordered By: Staci Oritz on 12-01-2022 Basophils (Bld) [#/Vol] 0.0 10*3/uL 0.0-0.2 [facility] Basophils/100 WBC Auto (Bld) Ordered By: Staci Ortiz on 12-01-2022 Basophils/100 WBC (Bld) 0.3 % . [facility] Bilirubin Test strip Ql (U)O rdered By: Staci Ortiz on 12-01-2022 Bilirubin Ql (U) Negative Negative [facility] COVID CepheidOrdered By: Noah larioskristofer Ortiz on 12-01-2022 SARS-CoV-2 (COVID-19) Ab IA Ql Negative Negative [facility] Comment on above: This is a duplicate Cepheid Xpert Xpress CoV-2/Flu/RSV Plus RNA by RT-PCR result to be used for statistical tracking purpose only. COVID-19 Detected/Not Detect edOrdered By: Staci Ortiz on 12-01-2022 SARS-CoV-2 (COVID-19) RNA SVETLANA+non-probe Ql (Nph) Not detected Not Detecte [facility] Comment on above: This is a duplicate RP2.1 COVID (PCR) result to be used for statistical tracking purpose only. Calcium [Mass/volume] in Ser um or PlasmaOrdered By: Staci Ortiz on 12-01-2022 Calcium [Mass/Vol] 9.1 mg/dL 8.6-10.3 [facility] Carbon dioxide, total [Moles /volume] in Serum or PlasmaOrdered By: Staci Ortiz on 12-01-2022 CO2 [Moles/Vol] 22.4 mmol/L 21.0-31.0 [facility] Chloride [Moles/volume] in S rosa or PlasmaOrdered By: Staci Ortiz on 12-01-2022 Chloride [Moles/Vol] 102 mmol/L 98-107 [facility] Color Auto (U)Ordered By: Elizabeth Ortiz on 12-01-2022 Color (U) Yellow Yellow [facility] Creatinine [Mass/volume] in Serum or PlasmaOrdered By: Staci Ortiz on 12-01-2022 Creatinine [Mass/Vol] 0.51 mg/dL 0.60-1.[address] [facility] Eosinophils Auto (Bld) [#/Vo l]Ordered By: Staci Ortiz on 12-01-2022 Eosinophils (Bld) [#/Vol] 0.0 10*3/uL 0.0-0.45 [facility] Eosinophils/100 WBC Auto (Bl d)Ordered By: Staci Ortiz on 12-01-2022 Eosinophils/100 WBC (Bld) 0.4 % . [facility] Erythrocyte distribution wid th Auto (RBC) [Ratio]Ordered By: Staci Ortiz on 12-01-2022 Erythrocyte distribution width (RBC) [Ratio] 14.5 % 11.9-15.3 [facility] Fibrin D-dimer [Presence] in Platelet poor plasma by Latex agglutinationOrdered By: Staci Ortiz on 12-01-2022 Fibrin D-dimer LA Ql (PPP) 231 ng/mL 0-243 [facility] Comment on above: The reference range for [...] coagulation studies. Please contact the laboratory at [phone] for redraw instructions. Glucose [Mass/volume] in Ser um or PlasmaOrdered By: Staci Ortiz on 12-01-2022 Glucose [Mass/Vol] 88 mg/dL 70-100 [facility] Comment on above: ADA recommended refe rence rangeRandom Glucose Reference Range is dependent on time and content of last meal. Glucose of more than 200 mg/dL in a nonstressed, ambulatory subject supports the diagnosis of Diabetes Mellitus. HCG ( test) IA.rapi d Ql (U)Ordered By: Staci Ortiz on 12-01-2022 HCG ( test) Ql (U) Positive [facility] Hematocrit Auto (Bld) [Volum e fraction]Ordered By: Staci Ortiz on 12-01-2022 Hematocrit (Bld) [Volume fraction] 34.2 % 34.0-46.4 [facility] Hemoglobin [Mass/volume] in BloodOrdered By: Staci Ortiz on 12-01-2022 Hemoglobin (Bld) [Mass/Vol] 11.3 g/dL 11.8-15.4 [facility] INR in Platelet poor plasma by Coagulation assayOrdered By: Staci Ortiz on 12-01-2022 INR Coag (PPP) [Relative time] 0.9 {INR} [facility] Comment on above: INR Therapeutic Rang e [...] 12-01-2022 Ketones (U) [Mass/Vol] Negative Negative [facility] - UrinalysisOrder ed By: Staci Ortiz on 12-01-2022 Hyaline casts LM Ql (Urine sed) 0-8 [LPF] 0-8 [facility] Leukocytes [#/volume] correc kee for nucleated erythrocytes in Blood by Automated counOrdered By: Staci Ortiz on 12-01-2022 WBC corrected for nucl RBC Auto (Bld) [#/Vol] 12.1 10*3/uL 3.8-11.6 [facility] Lymphocytes Auto (Bld) [#/Vo l]Ordered By: Staci Ortiz on 12-01-2022 Lymphocytes (Bld) [#/Vol] 1.8 10*3/uL 1.00-4.8 [facility] Lymphocytes/100 WBC Auto (Bl d)Ordered By: Staci Ortiz on 12-01-2022 Lymphocytes/100 WBC (Bld) 14.9 % . [facility] MCH Auto (RBC) [Entitic mass ]Ordered By: Staci Ortiz on 12-01-2022 MCH (RBC) [Entitic mass] 26.4 pg 24.7-34.3 [facility] MCHC Auto (RBC) [Mass/Vol]Or dered By: Staci Ortiz on 12-01-2022 MCHC (RBC) [Mass/Vol] 33.1 g/dL 32.0-35.[address] [facility] MCV Auto (RBC) [Entitic vol] Ordered By: Staci Ortiz on 12-01-2022 MCV (RBC) [Entitic vol] 79.7 fL 80-100 [facility] Monocyte distribution width [Entitic volume] in Blood by AutomatedOrdered By: Staci Ortiz on 12-01-2022 Monocyte distribution width Auto (Bld) [Entitic vol] 16.82 % 0.00-20.00 [facility] Monocytes Auto (Bld) [#/Vol] Ordered By: Staci Ortiz on 12-01-2022 Monocytes (Bld) [#/Vol] 0.9 10*3/uL 0.0-0.8 [facility] Monocytes/100 WBC Auto (Bld) Ordered By: Staci Ortiz on 12-01-2022 Monocytes/100 WBC (Bld) 7.6 % . [facility] Natriuretic peptide B [Mass/ Vol]Ordered By: tSaci Ortiz on 12-01-2022 Natriuretic peptide B (Bld) [Mass/Vol] 10.0 pg/mL 5-100 [facility] Neutrophils Auto (Bld) [#/Vo l]Ordered By: Staci Ortiz on 12-01-2022 Neutrophils (Bld) [#/Vol] 9.3 10*3/uL 1.8-7.7 [facility] Neutrophils/100 WBC Auto (Bl d)Ordered By: Staci Ortiz on 12-01-2022 Neutrophils/100 WBC (Bld) 76.8 % . [facility] Nitrite Test strip Ql (U)Ord ered By: Staci Ortiz on 12-01-2022 Nitrite Ql (U) Negative Negative [facility] No Panel InformationOrdered By: Staci Ortiz on 12-01-2022 Estimated GFR (CKD-EPI) > 60.0 mL/Min [facility] Creatinine Clearance (Chem 194.78 [facility] Nucleated erythrocytes [Pres ence] in Blood by Automated countOrdered By: Staci Ortiz on 10-17-2023 Nucleated RBC Auto Ql (Bld) 0.0 /100{WBC} 0-0.5 [facility] Platelet mean volume Auto (B ld) [Entitic vol]Ordered By: Staci Ortiz on 12-01-2022 Platelet mean volume (Bld) [Entitic vol] 8.8 fL 6.3-10.7 [facility] Platelets Auto (Bld) [#/Vol] Ordered By: Staci Ortiz on 12-01-2022 Platelets (Bld) [#/Vol] 212 10*3/uL 150-450 [facility] Potassium [Moles/volume] in Serum or PlasmaOrdered By: Staci Ortiz on 12-01-2022 Potassium [Moles/Vol] 3.7 mmol/L 3.5-5.[address] [facility] Protein Auto test strip (U) [Mass/Vol]Ordered By: Staci Ortiz on 12-01-2022 Protein (U) [Mass/Vol] Negative Negative [facility] Prothrombin time (PT)Ordered By: Staci Ortiz on 12-01-2022 PT Coag (PPP) [Time] 11.3 s 9.0-12.9 [facility] Comment on above: A hematocrit value g reater than 55% may lead to inaccurate results in coagulation testing. Patients having hematocrit values >55% require a special collection tube for coagulation studies. Please contact the laboratory at [phone] for redraw instructions. RBC Auto (Bld) [#/Vol]Ordere d By: Staci Ortiz on 12-01-2022 RBC (Bld) [#/Vol] 4.29 10*6/uL 3.60-5.00 [facility] Respiratory pathogens DNA an d RNA panel - Nasopharynx by SVETLANA with non-probe detectionOrdered By: Staci Ortiz on 12-01-2022 Respiratory pathogens DNA and RNA panel SVETLANA+non-probe (Nph) [facility] Respiratory pathogens DNA and RNA panel SVETLANA+non-probe (Nph) [facility] Serum or plasma anion gap de terminationOrdered By: Staci Ortiz on 12-01-2022 Anion gap [Moles/Vol] 13.3 mmol/L 6.0-15.0 [facility] Sodium [Moles/volume] in Ser um or PlasmaOrdered By: Staci Ortiz on 12-01-2022 Sodium [Moles/Vol] 134 mmol/L 136-145 [facility] Specific gravity Auto test s trip (U) [Rel density]Ordered By: Staci Ortiz on 12-01-2022 Specific gravity (U) [Rel density] 1.021 1.001-1.03 0 [facility] Squamous epithelial cells de tection in urine sediment by light microscopyOrdered By: Staci Ortiz on 12-01-2022 Epithelial cells.squamous LM Ql (Urine sed) 5-9 [HPF] 0-2 [facility] Troponin I.cardiac [Mass/vol ume] in Serum or Plasma by Detection limit <= 0.01 ng/Ordered By: Staci Ortiz on 12-01-2022 Troponin I.cardiac DL <= 0.01 ng/mL [Mass/Vol] < 2.3 pg/mL 0.0-15.0 [facility] Urea nitrogen [Mass/volume] in Serum or PlasmaOrdered By: Staci Ortiz on 12-01-2022 Urea nitrogen [Mass/Vol] 9 mg/dL 7-25 [facility] Urine bacteria detection by automated methodOrdered By: Staci Ortiz on 12-01-2022 Bacteria Auto Ql (U) None seen None Seen [facility] Urine clarity by refractomet ry automatedOrdered By: Staci Ortiz on 12-01-2022 Clarity Refractometry automated (U) Cloudy Clear [facility] Urine glucose measurement by automated test strip (mass/volume)Ordered By: Staci Ortiz on 12-01-2022 Glucose Auto test strip (U) [Mass/Vol] Normal mg/dL Normal [facility] Urine hemoglobin detection b y automated test stripOrdered By: Staci Ortiz on 12-01-2022 Hemoglobin Auto test strip Ql (U) Negative Negative [facility] Urine leukocyte esterase det ection by automated test stripOrdered By: Staci Ortiz on 12-01-2022 Leukocyte esterase Auto test strip Ql (U) 1+ Negative [facility] Urobilinogen Auto test strip (U) [Mass/Vol]Ordered By: Staci Ortiz on 12-01-2022 Urobilinogen (U) [Mass/Vol] Normal mg/dL Normal [facility] WBC Auto (Bld) [#/Vol]Ordere d By: Staci Ortiz on 12-01-2022 WBC (Bld) [#/Vol] 12.1 10*3/uL 3.8-11.6 [facility] pH Auto test strip (U)Ordere d By: Staci Ortiz on 12-01-2022 pH (U) 6.5 [pH] 5.0-9.0 [facility] Amphetamine Screen Ql (U)Ord ered By: TELMA Smith on 11-20-2022 Amphetamines Ql (U) Negative Negative [facility] Barbiturates [Presence] in U rine by Screen methodOrdered By: TELMA Smith on 11-20-2022 Barbiturates Screen Ql (U) Negative Negative [facility] Benzodiazepines Screen Ql (U )Ordered By: TELMA Smith on 11-20-2022 Benzodiazepines Ql (U) Negative Negative [facility] Benzoylecgonine [Presence] i n Urine by Screen methodOrdered By: TELMA Smith on 11-20-2022 Benzoylecgonine Screen Ql (U) Negative Negative [facility] Bilirubin Test strip Ql (U)O rdered By: TELMA Smith on 11-20-2022 Bilirubin Ql (U) Negative Negative [facility] Color Auto (U)Ordered By: MD DESEAN Smith on 11-20-2022 Color (U) Yellow Yellow [facility] Ketones Auto test strip (U) [Mass/Vol]Ordered By: TELMA Smith on 11-20-2022 Ketones (U) [Mass/Vol] Trace Negative [facility] Nitrite Test strip Ql (U)Ord ered By: TELMA Smith on 11-20-2022 Nitrite Ql (U) Negative Negative [facility] Opiates [Presence] in Urine by Screen methodOrdered By: TELMA Smith on 11-20-2022 Opiates Screen Ql (U) Negative Negative [facility] Phencyclidine Screen Ql (U)O rdered By: TELMA Smith on 11-20-2022 Phencyclidine Ql (U) Negative Negative [facility] Comment on above: These are unconfirme d results and should not be used for legal purposes. Drug Cut-Off Concentration: AMPH 1000 ng/mL FAVIOLA 200 ng/mL THA 200 ng/mL COCM 300 ng/mL OP 300 ng/mL PCP 25 ng/mL Protein Auto test strip (U) [Mass/Vol]Ordered By: TELMA Smith on 11-20-2022 Protein (U) [Mass/Vol] Negative Negative [facility] Specific gravity Auto test s trip (U) [Rel density]Ordered By: TELMA Smith on 11-20-2022 Specific gravity (U) [Rel density] 1.025 1.001-1.03 0 [facility] Urine clarity by refractomet ry automatedOrdered By: TELMA Smith on 11-20-2022 Clarity Refractometry automated (U) Clear Clear [facility] Urine glucose measurement by automated test strip (mass/volume)Ordered By: SHELLIE Smith on 11-20-2022 Glucose Auto test strip (U) [Mass/Vol] Normal mg/dL Normal [facility] Urine hemoglobin detection b y automated test stripOrdered By: TELMA Smith on 11-20-2022 Hemoglobin Auto test strip Ql (U) Negative Negative [facility] Urine leukocyte esterase det ection by automated test stripOrdered By: TELMA Smith on 11-20-2022 Leukocyte esterase Auto test strip Ql (U) Negative Negative [facility] Urobilinogen Auto test strip (U) [Mass/Vol]Ordered By: TELMA Smith on 11-20-2022 Urobilinogen (U) [Mass/Vol] Normal mg/dL Normal [facility] pH Auto test strip (U)Ordere d By: TELMA Smith on 11-20-2022 pH (U) 6.5 [pH] 5.0-9.0 [facility] Amphetamine Screen Ql (U)Ord ered By: MARY KAY CANTU on 11-19-2022 Amphetamines Ql (U) Negative Negative [facility] Barbiturates [Presence] in U rine by Screen methodOrdered By: MARY KAY CANTU on 11-19-2022 Barbiturates Screen Ql (U) Negative Negative [facility] Benzodiazepines Screen Ql (U )Ordered By: MARY KAY CANTU on 11-19-2022 Benzodiazepines Ql (U) Negative Negative [facility] Benzoylecgonine [Presence] i n Urine by Screen methodOrdered By: MARY KAY CANTU on 11-19-2022 Benzoylecgonine Screen Ql (U) Negative Negative [facility] Bilirubin Test strip Ql (U)O rdered By: MARY KAY CANTU on 11-19-2022 Bilirubin Ql (U) Negative Negative [facility] Color Auto (U)Ordered By: LJ CANTU on 11-19-2022 Color (U) Yellow Yellow [facility] fibronectinOrdered By: MARY KAY CANTU on 11-19-2022 Fibronectin. (Vag fld) [Mass/Vol] Positive Negative [facility] Ketones Auto test strip (U) [Mass/Vol]Ordered By: MARY KAY CANTU on 11-19-2022 Ketones (U) [Mass/Vol] Trace Negative [facility] Nitrite Test strip Ql (U)Ord ered By: MARY KAY CANTU on 11-19-2022 Nitrite Ql (U) Negative Negative [facility] Opiates [Presence] in Urine by Screen methodOrdered By: MARY KAY CANTU on 11-19-2022 Opiates Screen Ql (U) Negative Negative [facility] Phencyclidine Screen Ql (U)O rdered By: MARY KAY CANTU on 11-19-2022 Phencyclidine Ql (U) Negative Negative [facility] Comment on above: These are unconfirme d results and should not be used for legal purposes. Drug Cut-Off Concentration: AMPH 1000 ng/mL FAVIOLA 200 ng/mL THA 200 ng/mL COCM 300 ng/mL OP 300 ng/mL PCP 25 ng/mL Protein Auto test strip (U) [Mass/Vol]Ordered By: MARY KAY CANTU on 11-19-2022 Protein (U) [Mass/Vol] Negative Negative [facility] Specific gravity Auto test s trip (U) [Rel density]Ordered By: MARY KYA CANTU on 11-19-2022 Specific gravity (U) [Rel density] 1.017 1.001-1.03 0 [facility] Urine clarity by refractomet ry automatedOrdered By: MARY KAY CANTU on 11-19-2022 Clarity Refractometry automated (U) Clear Clear [facility] Urine glucose measurement by automated test strip (mass/volume)Ordered By: MARY KAY CANTU on 11-19-2022 Glucose Auto test strip (U) [Mass/Vol] Normal mg/dL Normal [facility] Urine hemoglobin detection b y automated test stripOrdered By: MARY KAY CANTU on 11-19-2022 Hemoglobin Auto test strip Ql (U) Negative Negative [facility] Urine leukocyte esterase det ection by automated test stripOrdered By: MARY KAY CANTU on 11-19-2022 Leukocyte esterase Auto test strip Ql (U) Negative Negative [facility] Urobilinogen Auto test strip (U) [Mass/Vol]Ordered By: MARY KAY CANTU on 11-19-2022 Urobilinogen (U) [Mass/Vol] Normal mg/dL Normal [facility] pH Auto test strip (U)Ordere d By: MARY KAY CANTU on 11-19-2022 pH (U) 7.5 [pH] 5.0-9.0 [facility] US PREG TVon 07-14-2022 US PREG TV [...] PETRA SALCIDO Date: 2022-07-14 00:14 Normal [facility] AMYLASEon 07-13-2022 Amylase [Catalytic activity/Vol] 43 U/L Normal 25-115 [facility] Comment on above: Performed By: #### C BC #### [facility] [address] [place] [address] Dr. Moris Winter CBC AUTO DIFFon 07-13-2022 BASO # 0.0 103/ul Normal 0.0-0.1 [facility] Comment on above: Performed By: #### C BC #### [facility] [address] [place] [address] Dr. Moris Winter Basophils/100 WBC (Bld) 0.2 % Normal 0.2-2.0 [facility] Comment on above: Performed By: #### C BC #### [facility] [address] [place] [address] Dr. Moris Winter EO # 0.1 103/ul Normal 0.0-0.7 [facility] Comment on above: Performed By: #### C BC #### [facility] [address] [place] [address] Dr. Moris Winter Eosinophils/100 WBC (Bld) 1.2 % Normal 0.9-7.0 [facility] Comment on above: Performed By: #### C BC #### [facility] [address] [place] [address] Dr. Moris Winter Erythrocyte distribution width (RBC) [Ratio] 13.8 % Normal 11.0-15.0 [facility] Comment on above: Performed By: #### C BC #### [facility] [address] [place] [address] Dr. Moris Winter Hematocrit (Bld) [Volume fraction] 36.6 % Normal 36.0-48.0 [facility] Comment on above: Performed By: #### C BC #### [facility] [address] [place] [address] Dr. Moris Winter Hemoglobin (Bld) [Mass/Vol] 12.3 g/dL Normal 12.0-16.0 [facility] Comment on above: Performed By: #### C BC #### [facility] [address] [place] [address] Dr. Moris Winter IG # 0.03 10e3/ul Normal 0.00-0.03 [facility] Comment on above: Performed By: #### C BC #### [facility] [address] [place] [address] Dr. Moris Winter IG % 0.3 % Normal 0.0-0.5 [facility] Comment on above: Performed By: #### C BC #### [facility] [address] [place] [address] Dr. Moris Winter LYMPH # 2.1 103/ul Normal 1.2-3.8 [facility] Comment on above: Performed By: #### C BC #### [facility] [address] [place] [address] Dr. Moris Winter Lymphocytes/100 WBC (Bld) 24.3 % Normal 20.5-60.0 [facility] Comment on above: Performed By: #### C BC #### [facility] [address] [place] [address] Dr. Moris Winter MANUAL DIFF REQ NO Normal [facility] Comment on above: Performed By: #### C BC #### [facility] [address] [place] [address] Dr. Moris Winter MCH (RBC) [Entitic mass] 27.5 pg Normal 26.7-34.0 [facility] Comment on above: Performed By: #### C BC #### [facility] [address] [place] [address] Dr. Moris Winter MCHC (RBC) [Mass/Vol] 33.6 g/dL Normal 29.9-35.2 [facility] Comment on above: Performed By: #### C BC #### [facility] [address] [place] [address] Dr. Moris Winter MCV (RBC) [Entitic vol] 81.7 fL Normal 81.0-99.0 [facility] Comment on above: Performed By: #### C BC #### [facility] [address] [place] [address] Dr. Moris Winter MONO # 0.7 103/ul Normal 0.3-0.8 [facility] Comment on above: Performed By: #### C BC #### [facility] [address] [place] [address] Dr. Moris Winter Monocytes/100 WBC (Bld) 7.8 % Normal 1.7-12.0 [facility] Comment on above: Performed By: #### C BC #### [facility] [address] [place] [address] Dr. Moris Winter NEUT # 5.8 103/ul Normal 1.4-6.5 [facility] Comment on above: Performed By: #### C BC #### [facility] [address] [place] [address] Dr. Moris Winter Neutrophils/100 WBC (Bld) 66.2 % Normal 43.0-75.0 [facility] Comment on above: Performed By: #### C BC #### [facility] [address] [place] [address] Dr. Moris Winter Platelet mean volume (Bld) [Entitic vol] 10.2 fL Normal 9.5-13.5 [facility] Comment on above: Performed By: #### C BC #### [facility] [address] [place] [address] Dr. Moris Winter PLT 301 103/ul Normal 150-450 [facility] Comment on above: Performed By: #### C BC #### [facility] [address] [place] [address] Dr. Moris Winter RBC 4.48 106/ul Normal 4.20-5.40 [facility] Comment on above: Performed By: #### C BC #### [facility] [address] [place] [address] Dr. Moris Winter WBC 8.7 103/ul Normal 4.0-11.0 [facility] Comment on above: Performed By: #### C BC #### [facility] [address] [place] [address] Dr. Moris Winter ER URINE PROFILEon 3 Bilirubin Ql (U) Negative Normal NEGATIVE [facility] Comment on above: Performed By: #### P REGU #### [facility] [address] [place] [address] Dr. Moris Winter Clarity (U) CLEAR Normal CLEAR [facility] Comment on above: Performed By: #### P REGU #### [facility] [address] [place] [address] Dr. Moris Winter Color (U) LT. YELLOW Normal YELLOW [facility] Comment on above: Performed By: #### P REGU #### [facility] [address] [place] [address] Dr. Moris Winter ERUAHD A micrscopic examina tion will be performed if indicated. Normal [facility] Comment on above: Performed By: #### P REGU #### [facility] [address] [place] [address] Dr. Moris Winter Glucose Ql (U) Negative Normal NEGATIVE [facility] Comment on above: Performed By: #### P REGU #### [facility] [address] [place] [address] Dr. Moris Winter Hemoglobin Ql (U) Negative Normal NEGATIVE [facility] Comment on above: Performed By: #### P REGU #### [facility] [address] [place] [address] Dr. Moris Winter Ketones Ql (U) TRACE Abnormal NEGATIVE [facility] Comment on above: Performed By: #### P REGU #### [facility] [address] [place] [address] Dr. Moris Winter LEUKOCYTES TRACE Abnormal NEGATIVE [facility] Comment on above: Performed By: #### P REGU #### [facility] [address] [place] [address] Dr. Moris Winter Nitrite Ql (U) Negative Normal NEGATIVE [facility] Comment on above: Performed By: #### P REGU #### [facility] [address] [place] [address] Dr. Moris Winter pH (U) 7.0 [pH] Normal 5-9 [facility] Comment on above: Performed By: #### P REGU #### [facility] [address] [place] [address] Dr. Moris Winter SPEC GRAVITY 1.020 Normal 1.005-<=1. 025 [facility] Comment on above: Performed By: #### P REGU #### [facility] [address] [place] [address] Dr. Moris Winter UA PROTEIN Negative Normal NEGATIVE/ TRACE [facility] Comment on above: Performed By: #### P REGU #### [facility] [address] [place] [address] Dr. Moris Winter UR MICRO IND INDICATED Normal [facility] Comment on above: Performed By: #### P REGU #### [facility] [address] [place] [address] Dr. Moris Winter Urobilinogen Qn (U) 0.2 {Marcin'U}/dL Normal 0.2 - 1. 0 [facility] Comment on above: Performed By: #### P REGU #### [facility] [address] [place] [address] Dr. Moris Winter LIPASEon 07-13-2022 Lipase [Catalytic activity/Vol] 204.0 U/L Normal 73.0-393.0 [facility] Comment on above: Performed By: #### C BC #### [facility] [address] [place] [address] Dr. Moris Winter PREG QUANT HCGon 07-13-2022 HCG QUANT 1455 mIU/mL Normal [facility] Comment on above: Performed By: #### P REGU #### [facility] [address] [place] [address] Dr. Moris Winter HCG RANGE SEE BELOW Normal [facility] Comment on above: Result Comment: 5-50 0.2-1 WEEK 50-500 1-2 WEEKS 100-5,000 2-3 WEEKS 500-10,000 3-4 WEEKS 1,000-50,000 4-5 WEEKS 10,000-100,000 5-6 WEEKS 15,000-200,000 6-8 WEEKS 10,000-100,000 2-3 MONTHS Performed By: #### P REGU #### [facility] [address] [place] [address] Dr. Moris Winter URon 07-13-2022 , QUAL Positive Abnormal NEGATIVE [facility] Comment on above: Performed By: #### P REGU #### [facility] [address] [place] [address] Dr. Moris Winter PROF 14(COMP METB)on 023 Albumin [Mass/Vol] 3.3 g/dL Critically low 3.4-5.0 [facility] Comment on above: Performed By: #### C BC #### [facility] [address] [place] [address] Dr. Moris Winter Albumin/Globulin [Mass ratio] 0.7 {ratio} Normal [facility] Comment on above: Performed By: #### C BC #### [facility] [address] [place] [address] Dr. Moris Winter ALP [Catalytic activity/Vol] 86 U/L Normal 46-116 [facility] Comment on above: Performed By: #### C BC #### [facility] [address] [place] [address] Dr. Moris Winter ALT [Catalytic activity/Vol] 16 U/L Normal 14-59 [facility] Comment on above: Performed By: #### C BC #### [facility] [address] [place] [address] Dr. Moris Winter Anion gap [Moles/Vol] 14.9 mmol/L Normal [facility] Comment on above: Performed By: #### C BC #### [facility] [address] [address] [address] Moris Winter AST [Catalytic activity/Vol] 12 U/L Critically low 15-37 [facility] Comment on above: Performed By: #### C BC #### [facility] [address] [address] [address] Moris Winter Bilirubin [Mass/Vol] 0.1 mg/dL Critically low 0.2-1.0 [facility] Comment on above: Performed By: #### C BC #### [facility] [address] [address] [address] Moris Winter Calcium [Mass/Vol] 9.3 mg/dL Normal 8.5-10.1 [facility] Comment on above: Performed By: #### C BC #### [facility] [address] [address] [address] Moris Winter Chloride [Moles/Vol] 103 mmol/L Normal 98-107 [facility] Comment on above: Performed By: #### C BC #### [facility] [address] [address] [address] Moris Winter CO2 [Moles/Vol] 25.4 mmol/L Normal 21.0-32.0 [facility] Comment on above: Performed By: #### C BC #### [facility] [address] [address] [address] Moris Winter Creatinine [Mass/Vol] 0.80 mg/dL Normal 0.55-1.02 [facility] Comment on above: Performed By: #### C BC #### [facility] [address] [address] [address] Moris Winter EGFR-AF HAITIAN >60 Normal >=60 [facility] Comment on above: Performed By: #### C BC #### [facility] [address] [address] [address] Moris Winter EGFR-NON AF HAITIAN >60 Normal >=60 [facility] Comment on above: Performed By: #### C BC #### [facility] [address] [address] [address] Moris Winter Globulin (S) [Mass/Vol] 4.6 g/dL Normal [facility] Comment on above: Performed By: #### C BC #### [facility] [address] [address] [address] Moris Winter Glucose [Mass/Vol] 111 mg/dL Critically high 74-[address] [facility] Comment on above: Performed By: #### C BC #### [facility] [address] [place] [address] Dr. Moris Winter Potassium [Moles/Vol] 3.3 mmol/L Critically low 3.5-5.1 [facility] Comment on above: Performed By: #### C BC #### [facility] [address] [place] [address] Dr. Moris Winter Protein [Mass/Vol] 7.9 g/dL Normal 6.4-8.2 [facility] Comment on above: Performed By: #### C BC #### [facility] [address] [place] [address] Dr. Moris Winter Sodium [Moles/Vol] 140 mmol/L Normal 136-145 [facility] Comment on above: Performed By: #### C BC #### [facility] [address] [place] [address] Dr. Moris Winter Urea nitrogen [Mass/Vol] 10.0 mg/dL Normal 7.0-18.0 [facility] Comment on above: Performed By: #### C BC #### [facility] [address] [place] [address] Dr. Moris Winter Urea nitrogen/Creatinine [Mass ratio] 12.5 mg/mg Normal [facility] Comment on above: Performed By: #### C BC #### [facility] [address] [place] [address] Dr. Moris Winter URINE MICROSCOPIC ONLYon BACTERIA TRACE Abnormal NONE SEEN [facility] Comment on above: Performed By: #### P REGU #### [facility] [address] [place] [address] Dr. Moris Winter Bacteria identified Cx Nom (U) NOT INDICATED Normal [facility] Comment on above: Performed By: #### P REGU #### [facility] [address] [place] [address] Dr. Moris Winter CAST NONE SEEN Normal NONE SEEN [facility] Comment on above: Performed By: #### P REGU #### [facility] [address] [address] [address] Moris Winter Crystals LM Nom (Urine sed) NONE SEEN Normal NONE SEEN [facility] Comment on above: Performed By: #### P REGU #### [facility] [address] [place] [address] Dr. Moris Winter Epithelial cells LM Ql (Urine sed) FEW Abnormal NONE SEEN /RARE [facility] Comment on above: Performed By: #### P REGU #### [facility] [address] [place] [address] Dr. Moris Winter MUCOUS NONE SEEN Normal NONE SEEN [facility] Comment on above: Performed By: #### P REGU #### [facility] [address] [place] [address] Dr. oMris Winter RBC 0-2 Normal 0-2 [facility] Comment on above: Performed By: #### P REGU #### [facility] [address] [place] [address] Dr. Moris Winter WBC 2-5 Abnormal NONE SEEN [facility] Comment on above: Performed By: #### P REGU #### [facility] [address] [place] [address] Dr. Moris Winter Cholesterol [Mass/volume] in Serum or PlasmaOrdered By: Naatly Toure on 06-16-2022 Cholesterol [Mass/Vol] 189 mg/dL 140-200 [facility] Comment on above: Chol less than 200 m g/dl low riskChol 201-239 mg/dl borderline riskChol 240 mg/dl and greater high risk Cholesterol in LDL Calc [Mas s/Vol]Ordered By: Nataly Toure on 06-16-2022 Cholesterol in LDL [Mass/Vol] 84 mg/dL 0-100 [facility] Comment on above: LDL ATP III CLASSIFI CATIONLDL less than 100 mg/dL OptimalLDL 100-129 mg/dL Near or above optimalLDL 130-159 mg/dL Borderline highLDL 160-189 mg/dL HighLDL greater than 189 mg/dL Very high Cholesterol in VLDL Calc [Ma ss/Vol]Ordered By: Nataly Toure on 06-16-2022 Cholesterol in VLDL [Mass/Vol] 54 mg/dL [facility] Serum or plasma high density lipoprotein (HDL) cholesterol measurementOrdered By: Nataly Toure on 06-16-2022 Cholesterol in HDL [Mass/Vol] 50 mg/dL 35-85 [facility] Comment on above: HDL CHOL ATP-III CLA SSIFICATION Cardiovascular RiskHDL > or equal to 60 mg/dL LOWHDL < 40 mg/dL HIGH Serum or plasma total choles terol/high density lipoprotein (HDL) cholesterol mass ratOrdered By: Nataly Toure on 06-16-2022 Cholesterol.total/Chol esterol in HDL [Mass ratio] 3.8 {ratio} <5.0 [facility] Triglyceride [Mass/volume] i n Serum or PlasmaOrdered By: Nataly Toure on 06-16-2022 Triglyceride [Mass/Vol] 273 mg/dL 0-149 [facility] Comment on above: TRIG ATP III CLASSIF ICATIONTRIG less than 150 mg/dL NormalTRIG 150-199 mg/dL Borderline highTRIG 200-500 mg/dL High TRIG greater than 500 mg/dL Very highStandard traceable to the Center for Disease Conrtrol and Prevention (CDC) test method. Alanine aminotransferase [En zymatic activity/volume] in Serum or PlasmaOrdered By: Nataly Toure on 06-04-2022 ALT [Catalytic activity/Vol] 7 U/L 7-52 [facility] Albumin [Mass/volume] in Ser um or Plasma by Bromocresol green (BCG) dye binding methoOrdered By: Nataly Toure on 06-04-2022 Albumin BCG dye [Mass/Vol] 3.8 g/dL 3.5-5.7 [facility] Alkaline phosphatase [Enzyma tic activity/volume] in Serum or PlasmaOrdered By: Nataly Toure on 06-04-2022 ALP [Catalytic activity/Vol] 78 U/L 34-104 [facility] Amylase [Enzymatic activity/ volume] in Serum or PlasmaOrdered By: Nataly Toure on 06-04-2022 Amylase [Catalytic activity/Vol] 29 U/L 29-103 [facility] Aspartate aminotransferase [ Enzymatic activity/volume] in Serum or PlasmaOrdered By: Nataly Spasic on 06-04-2022 AST [Catalytic activity/Vol] 10 U/L 13-39 [facility] Basophils Auto (Bld) [#/Vol] Ordered By: Nataly Spasic on 06-04-2022 Basophils (Bld) [#/Vol] 0.1 10*3/uL 0.0-0.2 [facility] Basophils/100 WBC Auto (Bld) Ordered By: Nataly Spasic on 06-04-2022 Basophils/100 WBC (Bld) 1.4 % . [facility] Bilirubin.total [Mass/volume ] in Serum or PlasmaOrdered By: Nataly Jerniganc on 06-04-2022 Bilirubin [Mass/Vol] 0.3 mg/dL 0.3-1.0 [facility] Calcium [Mass/volume] in Ser um or PlasmaOrdered By: Nataly Junesic on 06-04-2022 Calcium [Mass/Vol] 9.3 mg/dL 8.6-10.3 [facility] Carbon dioxide, total [Moles /volume] in Serum or PlasmaOrdered By: Nataly Spasic on 06-04-2022 CO2 [Moles/Vol] 29.6 mmol/L 21.0-31.0 [facility] Chloride [Moles/volume] in S rosa or PlasmaOrdered By: Nataly Spasic on 06-04-2022 Chloride [Moles/Vol] 99 mmol/L 98-107 [facility] Creatinine [Mass/volume] in Serum or PlasmaOrdered By: Nataly Spasic on 06-04-2022 Creatinine [Mass/Vol] 0.69 mg/dL 0.60-1.[address] [facility] Eosinophils Auto (Bld) [#/Vo l]Ordered By: Nataly Spasic on 06-04-2022 Eosinophils (Bld) [#/Vol] 0.2 10*3/uL 0.0-0.45 [facility] Eosinophils/100 WBC Auto (Bl d)Ordered By: Nataly Toure on 06-04-2022 Eosinophils/100 WBC (Bld) 1.8 % . [facility] Erythrocyte distribution wid th Auto (RBC) [Ratio]Ordered By: Nataly Toure on 06-04-2022 Erythrocyte distribution width (RBC) [Ratio] 14.6 % 11.9-15.3 [facility] Ferritin [Mass/volume] in Se rum or PlasmaOrdered By: Nataly Toure on 06-04-2022 Ferritin [Mass/Vol] 12.7 ng/mL 11.0-306.8 [facility] Globulin Calc (S) [Mass/Vol] Ordered By: Nataly Toure on 06-04-2022 Globulin (S) [Mass/Vol] 3.6 g/dL [facility] Glucose [Mass/volume] in Ser um or PlasmaOrdered By: Nataly Toure on 06-04-2022 Glucose [Mass/Vol] 103 mg/dL 70-100 [facility] Comment on above: ADA recommended refe rence rangeRandom Glucose Reference Range is dependent on time and content of last meal. Glucose of more than 200 mg/dL in a nonstressed, ambulatory subject supports the diagnosis of Diabetes Mellitus. Hematocrit Auto (Bld) [Volum e fraction]Ordered By: Nataly Toure on 06-04-2022 Hematocrit (Bld) [Volume fraction] 38.2 % 34.0-46.4 [facility] Hemoglobin [Mass/volume] in BloodOrdered By: Nataly Toure on 06-04-2022 Hemoglobin (Bld) [Mass/Vol] 12.7 g/dL 11.8-15.4 [facility] Leukocytes [#/volume] correc kee for nucleated erythrocytes in Blood by Automated counOrdered By: Nataly Toure on 06-04-2022 WBC corrected for nucl RBC Auto (Bld) [#/Vol] 8.7 10*3/uL 3.8-11.6 [facility] Lipase [Enzymatic activity/v olume] in Serum or PlasmaOrdered By: Nataly Jerniganc on 06-04-2022 Lipase [Catalytic activity/Vol] 38.0 U/L 11.0-82.0 [facility] Lymphocytes Auto (Bld) [#/Vo l]Ordered By: Nataly Spasic on 06-04-2022 Lymphocytes (Bld) [#/Vol] 1.7 10*3/uL 1.00-4.8 [facility] Lymphocytes/100 WBC Auto (Bl d)Ordered By: Nataly Spasic on 06-04-2022 Lymphocytes/100 WBC (Bld) 19.7 % . [facility] MCH Auto (RBC) [Entitic mass ]Ordered By: Nataly Junesic on 06-04-2022 MCH (RBC) [Entitic mass] 26.8 pg 24.7-34.3 [facility] MCHC Auto (RBC) [Mass/Vol]Or dered By: Nataly Shayleesic on 06-04-2022 MCHC (RBC) [Mass/Vol] 33.2 g/dL 32.0-35.[address] [facility] MCV Auto (RBC) [Entitic vol] Ordered By: Nataly Junesic on 06-04-2022 MCV (RBC) [Entitic vol] 80.7 fL 80-100 [facility] Monocytes Auto (Bld) [#/Vol] Ordered By: Nataly Spasic on 06-04-2022 Monocytes (Bld) [#/Vol] 0.5 10*3/uL 0.0-0.8 [facility] Monocytes/100 WBC Auto (Bld) Ordered By: Nataly Spasic on 06-04-2022 Monocytes/100 WBC (Bld) 6.1 % . [facility] Neutrophils Auto (Bld) [#/Vo l]Ordered By: Nataly Junesic on 06-04-2022 Neutrophils (Bld) [#/Vol] 6.2 10*3/uL 1.8-7.7 [facility] Neutrophils/100 WBC Auto (Bl d)Ordered By: Nataly Spasic on 06-04-2022 Neutrophils/100 WBC (Bld) 71.0 % . [facility] No Panel InformationOrdered By: Nataly Jerniganc on 06-04-2022 Estimated GFR (CKD-EPI) > 60.0 mL/Min [facility] Creatinine Clearance (Chem N/A [facility] Nucleated erythrocytes [Pres ence] in Blood by Automated countOrdered By: Nataly Toure on 06-04-2022 Nucleated RBC Auto Ql (Bld) 0.2 /100{WBC} 0-0.5 [facility] Platelet mean volume Auto (B ld) [Entitic vol]Ordered By: Nataly Toure on 06-04-2022 Platelet mean volume (Bld) [Entitic vol] 10.2 fL 6.3-10.7 [facility] Platelets Auto (Bld) [#/Vol] Ordered By: Nataly Toure on 06-04-2022 Platelets (Bld) [#/Vol] 245 10*3/uL 150-450 [facility] Potassium [Moles/volume] in Serum or PlasmaOrdered By: Nataly Toure on 06-04-2022 Potassium [Moles/Vol] 4.5 mmol/L 3.5-5.[address] [facility] Protein [Mass/volume] in Ser um or PlasmaOrdered By: Nataly Toure on 06-04-2022 Protein [Mass/Vol] 7.4 g/dL 6.4-8.9 [facility] RBC Auto (Bld) [#/Vol]Ordere d By: Nataly Toure on 06-04-2022 RBC (Bld) [#/Vol] 4.73 10*6/uL 3.60-5.00 [facility] Serum or plasma albumin/glob ulin mass ratioOrdered By: Nataly Toure on 06-04-2022 Albumin/Globulin [Mass ratio] 1.1 {ratio} [facility] Serum or plasma anion gap de terminationOrdered By: Nataly Toure on 06-04-2022 Anion gap [Moles/Vol] 10.9 mmol/L 6.0-15.0 [facility] Serum or plasma insulin nikita urement (units/volume)Ordered By: Nataly Toure on 06-04-2022 Insulin Qn 128.0 u[iU]/mL 2.6-24.9 [facility] Comment on above: Performed at: [facility] - [place] [address] [id number] Director: Sam Lopez PhD, Phone: [phone] Sodium [Moles/volume] in Ser um or PlasmaOrdered By: Nataly Toure on 06-04-2022 Sodium [Moles/Vol] 135 mmol/L 136-145 [facility] Urea nitrogen [Mass/volume] in Serum or PlasmaOrdered By: Nataly Toure on 06-04-2022 Urea nitrogen [Mass/Vol] 9 mg/dL 7-25 [facility] WBC Auto (Bld) [#/Vol]Ordere d By: Nataly Toure on 06-04-2022 WBC (Bld) [#/Vol] 8.7 10*3/uL 3.8-11.6 [facility] AMYLASEon 06-03-2022 Amylase [Catalytic activity/Vol] 37 U/L Normal 25-115 [facility] Comment on above: Performed By: #### L IPA, CMP, KIM #### [facility] [address] [address] [address] Moris Winter CBC AUTO DIFFon 06-03-2022 BASO # 0.0 103/ul Normal 0.0-0.1 [facility] Comment on above: Performed By: #### C BC #### [facility] [address] [address] [address] Moris Winter Basophils/100 WBC (Bld) 0.1 % Critically low 0.2-2.0 [facility] Comment on above: Performed By: #### C BC #### [facility] [address] [address] [address] Moris Winter EO # 0.1 103/ul Normal 0.0-0.7 [facility] Comment on above: Performed By: #### C BC #### [facility] [address] [address] [address] Moris Winter Eosinophils/100 WBC (Bld) 1.6 % Normal 0.9-7.0 [facility] Comment on above: Performed By: #### C BC #### [facility] [address] [address] [address] Moris Winter Erythrocyte distribution width (RBC) [Ratio] 13.5 % Normal 11.0-15.0 [facility] Comment on above: Performed By: #### C BC #### [facility] [address] [place] [address] Dr. Moris Winter Hematocrit (Bld) [Volume fraction] 36.3 % Normal 36.0-48.0 [facility] Comment on above: Performed By: #### C BC #### [facility] [address] [place] [address] Dr. Moris Winter Hemoglobin (Bld) [Mass/Vol] 11.8 g/dL Critically low 12.0-16.0 [facility] Comment on above: Performed By: #### C BC #### [facility] [address] [place] [address] Dr. Moris Winter IG # 0.03 10e3/ul Normal 0.00-0.03 [facility] Comment on above: Performed By: #### C BC #### [facility] [address] [place] [address] Dr. Moris Winter IG % 0.4 % Normal 0.0-0.5 [facility] Comment on above: Performed By: #### C BC #### [facility] [address] [place] [address] Dr. Moris Winter LYMPH # 2.5 103/ul Normal 1.2-3.8 [facility] Comment on above: Performed By: #### C BC #### [facility] [address] [place] [address] Dr. Moris Winter Lymphocytes/100 WBC (Bld) 33.2 % Normal 20.5-60.0 [facility] Comment on above: Performed By: #### C BC #### [facility] [address] [place] [address] Dr. Moris Winter MANUAL DIFF REQ NO Normal [facility] Comment on above: Performed By: #### C BC #### [facility] [address] [place] [address] Dr. Moris Winter MCH (RBC) [Entitic mass] 26.2 pg Critically low 26.7-34.0 [facility] Comment on above: Performed By: #### C BC #### [facility] [address] [place] [address] Dr. Moris Winter MCHC (RBC) [Mass/Vol] 32.5 g/dL Normal 29.9-35.2 [facility] Comment on above: Performed By: #### C BC #### [facility] [address] [place] [address] Dr. Moris Winter MCV (RBC) [Entitic vol] 80.7 fL Critically low 81.0-99.0 [facility] Comment on above: Performed By: #### C BC #### [facility] [address] [place] [address] Dr. Moris Winter MONO # 0.7 103/ul Normal 0.3-0.8 [facility] Comment on above: Performed By: #### C BC #### [facility] [address] [place] [address] Dr. Moris Winter Monocytes/100 WBC (Bld) 9.9 % Normal 1.7-12.0 [facility] Comment on above: Performed By: #### C BC #### [facility] [address] [place] [address] Dr. Moris Winter NEUT # 4.1 103/ul Normal 1.4-6.5 [facility] Comment on above: Performed By: #### C BC #### [facility] [address] [place] [address] Dr. Moris Winter Neutrophils/100 WBC (Bld) 54.8 % Normal 43.0-75.0 [facility] Comment on above: Performed By: #### C BC #### [facility] [address] [place] [address] Dr. Moris Winter Platelet mean volume (Bld) [Entitic vol] 10.7 fL Normal 9.5-13.5 [facility] Comment on above: Performed By: #### C BC #### [facility] [address] [place], [place] [address] Dr. Moris Witner PLT 248 103/ul Normal 150-450 [facility] Comment on above: Performed By: #### C BC #### [facility] [address] [address] [address] Moris Winter RBC 4.50 106/ul Normal 4.20-5.40 [facility] Comment on above: Performed By: #### C BC #### [facility] [address] [id number] Moris Winter WBC 7.5 103/ul Normal 4.0-11.0 [facility] Comment on above: Performed By: #### C BC #### [facility] [address] [place] [address] ABD/PELV W CONon [...] NANCI COULTER Date: 2022-06-03 02:19 Normal [facility] ER URINE PROFILEon 3 Bilirubin Ql (U) Negative Normal NEGATIVE [facility] Comment on above: Performed By: #### C BC #### [facility] [address] [place] [address] Dr. Moris Winter Clarity (U) CLEAR Normal CLEAR [facility] Comment on above: Performed By: #### C BC #### [facility] [address] [place] [address] Dr. Moris Winter Color (U) LT. YELLOW Normal YELLOW [facility] Comment on above: Performed By: #### C BC #### [facility] [address] [place] [address] Dr. Moris Winter ERUAHD A micrscopic examina tion will be performed if indicated. Normal [facility] Comment on above: Performed By: #### C BC #### [facility] [address] [place] [address] Dr. Moris Winter Glucose Ql (U) Negative Normal NEGATIVE [facility] Comment on above: Performed By: #### C BC #### [facility] [address] [place] [address] Dr. Moris Winter Hemoglobin Ql (U) Negative Normal NEGATIVE [facility] Comment on above: Performed By: #### C BC #### [facility] [address] [place] [address] Dr. Moris Winter Ketones Ql (U) Negative Normal NEGATIVE [facility] Comment on above: Performed By: #### C BC #### [facility] [address] [place] [address] Dr. Moris Winter LEUKOCYTES Negative Normal NEGATIVE [facility] Comment on above: Performed By: #### C BC #### [facility] [address] [place] [address] Dr. Moris Winter Nitrite Ql (U) Negative Normal NEGATIVE [facility] Comment on above: Performed By: #### C BC #### [facility] [address] [place] [address] Dr. Moris Winter pH (U) 7.0 [pH] Normal 5-9 [facility] Comment on above: Performed By: #### C BC #### [facility] [address] [place] [address] Dr. Moris Winter SPEC GRAVITY 1.015 Normal 1.005-<=1. 025 [facility] Comment on above: Performed By: #### C BC #### [facility] [address] [place] [address] Dr. Moris Winter UA PROTEIN Negative Normal NEGATIVE/ TRACE [facility] Comment on above: Performed By: #### C BC #### [facility] [address] [place] [address] Dr. Moris Winter UR MICRO IND NOT INDICATED Normal [facility] Comment on above: Performed By: #### C BC #### [facility] [address] [place] [address] Dr. Moris Winter Urobilinogen Qn (U) 1.0 {Marcin'U}/dL Normal 0.2 - 1. 0 [facility] Comment on above: Performed By: #### C BC #### [facility] [address] [place] [address] Dr. Moris Winter LACTATE/LACTIC ACIDon 2022 Lactate [Moles/Vol] 1.0 mmol/L Normal 0.4-2.0 [facility] Comment on above: Performed By: #### L ACT #### [facility] [address] [place] [address] Dr. Moris Winter LIPASEon 06-03-2022 Lipase [Catalytic activity/Vol] 112.0 U/L Normal 73.0-393.0 [facility] Comment on above: Performed By: #### L IPA, CMP, KIM #### [facility] [address] [place] [address] Dr. Moris Winter URon 06-03-2022 , QUAL Negative Normal NEGATIVE [facility] Comment on above: Performed By: #### P REGU #### [facility] [address] [address] [address] Moris Winter PROF 14(COMP METB)on 023 Albumin [Mass/Vol] 2.9 g/dL Critically low 3.4-5.0 [facility] Comment on above: Performed By: #### L IPA, CMP, KIM #### [facility] [address] [address] [address] Moris Winter Albumin/Globulin [Mass ratio] 0.6 {ratio} Normal [facility] Comment on above: Performed By: #### L IPA, CMP, KIM #### [facility] [address] [address] [address] Moris Winter ALP [Catalytic activity/Vol] 86 U/L Normal 46-116 [facility] Comment on above: Performed By: #### L IPA, CMP, KIM #### [facility] [address] [place] [address] Dr. oMris Winter ALT [Catalytic activity/Vol] 14 U/L Normal 14-59 [facility] Comment on above: Performed By: #### L IPA, CMP, KIM #### [facility] [address] [address] [address] Moris Winter Anion gap [Moles/Vol] 10.9 mmol/L Normal [facility] Comment on above: Performed By: #### L IPA, CMP, KIM #### [facility] [address] [address] [address] Moris Winter AST [Catalytic activity/Vol] 12 U/L Critically low 15-37 [facility] Comment on above: Performed By: #### L IPA, CMP, KIM #### [facility] [address] [address] [address] Moris Winter Bilirubin [Mass/Vol] 0.2 mg/dL Normal 0.2-1.0 [facility] Comment on above: Performed By: #### L IPA, CMP, KIM #### [facility] [address] [address] [address] Moris Winter Calcium [Mass/Vol] 9.0 mg/dL Normal 8.5-10.1 [facility] Comment on above: Performed By: #### L IPA, CMP, KIM #### [facility] [address] [address] [address] Moris Winter Chloride [Moles/Vol] 102 mmol/L Normal 98-107 [facility] Comment on above: Performed By: #### L IPA, CMP, KIM #### [facility] [address] [address] [address] Moris Winter CO2 [Moles/Vol] 29.6 mmol/L Normal 21.0-32.0 [facility] Comment on above: Performed By: #### L IPA, CMP, KIM #### [facility] [address] [place] [address] Dr. Moris Winter Creatinine [Mass/Vol] 0.73 mg/dL Normal 0.55-1.02 [facility] Comment on above: Performed By: #### L IPA, CMP, KIM #### [facility] [address] [place] [address] Dr. Moris Winter EGFR-AF HAITIAN >60 Normal >=60 [facility] Comment on above: Performed By: #### L IPA, CMP, KIM #### [facility] [address] [place] [address] Dr. Moris Winter EGFR-NON AF HAITIAN >60 Normal >=60 [facility] Comment on above: Performed By: #### L IPA, CMP, KIM #### [facility] [address] [place] [address] Dr. Moris Winter Globulin (S) [Mass/Vol] 4.8 g/dL Normal [facility] Comment on above: Performed By: #### L IPA, CMP, KIM #### [facility] [address] [place] [address] Dr. Moris Winter Glucose [Mass/Vol] 121 mg/dL Critically high 74-[address] [facility] Comment on above: Performed By: #### L IPA, CMP, KIM #### [facility] [address] [address] [address] Moris Winter Potassium [Moles/Vol] 3.5 mmol/L Normal 3.5-5.1 [facility] Comment on above: Performed By: #### L IPA, CMP, KIM #### [facility] [address] [address] [address] Moris Winter Protein [Mass/Vol] 7.7 g/dL Normal 6.4-8.2 [facility] Comment on above: Performed By: #### L IPA, CMP, KIM #### [facility] [address] [address] [address] Moris Winter Sodium [Moles/Vol] 139 mmol/L Normal 136-145 [facility] Comment on above: Performed By: #### L IPA, CMP, KIM #### [facility] [address] [address] [address] Moris Winter Urea nitrogen [Mass/Vol] 11.0 mg/dL Normal 7.0-18.0 [facility] Comment on above: Performed By: #### L IPA, CMP, KIM #### [facility] [address] [address] [address] Moris Winter Urea nitrogen/Creatinine [Mass ratio] 15.1 mg/mg Normal [facility] Comment on above: Performed By: #### L IPA, CMP, KIM #### [facility] [address] [address] [address] Moris Winter Alanine aminotransferase [En zymatic activity/volume] in Serum or PlasmaOrdered By: Nataly Toure on 05-28-2022 ALT [Catalytic activity/Vol] 10 U/L 7-52 [facility] Albumin [Mass/volume] in Ser um or Plasma by Bromocresol green (BCG) dye binding methoOrdered By: Nataly Toure on 05-28-2022 Albumin BCG dye [Mass/Vol] 3.9 g/dL 3.5-5.7 [facility] Alkaline phosphatase [Enzyma tic activity/volume] in Serum or PlasmaOrdered By: Nataly Toure on 05-28-2022 ALP [Catalytic activity/Vol] 87 U/L 34-104 [facility] Aspartate aminotransferase [ Enzymatic activity/volume] in Serum or PlasmaOrdered By: Nataly Toure on 05-28-2022 AST [Catalytic activity/Vol] 11 U/L 13-39 [facility] Basophils Auto (Bld) [#/Vol] Ordered By: Nataly Toure on 05-28-2022 Basophils (Bld) [#/Vol] 0.0 10*3/uL 0.0-0.2 [facility] Basophils/100 WBC Auto (Bld) Ordered By: Nataly Toure on 05-28-2022 Basophils/100 WBC (Bld) 0.6 % . [facility] Bilirubin.total [Mass/volume ] in Serum or PlasmaOrdered By: Nataly Toure on 05-28-2022 Bilirubin [Mass/Vol] 0.4 mg/dL 0.3-1.0 [facility] Calcium [Mass/volume] in Ser um or PlasmaOrdered By: Nataly Toure on 05-28-2022 Calcium [Mass/Vol] 9.1 mg/dL 8.6-10.3 [facility] Carbon dioxide, total [Moles /volume] in Serum or PlasmaOrdered By: Nataly Toure on 05-28-2022 CO2 [Moles/Vol] 27.6 mmol/L 21.0-31.0 [facility] Chloride [Moles/volume] in S rosa or PlasmaOrdered By: Nataly Toure on 05-28-2022 Chloride [Moles/Vol] 102 mmol/L 98-107 [facility] Cholesterol [Mass/volume] in Serum or PlasmaOrdered By: Nataly Toure on 05-28-2022 Cholesterol [Mass/Vol] 269 mg/dL 140-200 [facility] Comment on above: Chol less than 200 m g/dl low riskChol 201-239 mg/dl borderline riskChol 240 mg/dl and greater high risk Cholesterol in LDL Calc [Mas s/Vol]Ordered By: Nataly Toure on 05-28-2022 Cholesterol in LDL [Mass/Vol] TNP [facility] Comment on above: Test not performed Cholesterol in LDL [Mass/vol ume] in Serum or PlasmaOrdered By: Nataly Toure on 05-28-2022 Cholesterol in LDL [Mass/Vol] 82 mg/dL 0-100 [facility] Comment on above: LDL ATP III CLASSIFI CATIONLDL less than 100 mg/dL OptimalLDL 100-129 mg/dL Near or above optimalLDL 130-159 mg/dL Borderline highLDL 160-189 mg/dL HighLDL greater than 189 mg/dL Very high Cholesterol in VLDL Calc [Ma ss/Vol]Ordered By: Nataly Toure on 05-28-2022 Cholesterol in VLDL [Mass/Vol] 187 mg/dL [facility] Creatinine [Mass/volume] in Serum or PlasmaOrdered By: Nataly Toure on 05-28-2022 Creatinine [Mass/Vol] 0.68 mg/dL 0.60-1.[address] [facility] Eosinophils Auto (Bld) [#/Vo l]Ordered By: Nataly Toure on 05-28-2022 Eosinophils (Bld) [#/Vol] 0.2 10*3/uL 0.0-0.45 [facility] Eosinophils/100 WBC Auto (Bl d)Ordered By: Nataly Toure on 05-28-2022 Eosinophils/100 WBC (Bld) 2.1 % . [facility] Erythrocyte distribution wid th Auto (RBC) [Ratio]Ordered By: Nataly Toure on 05-28-2022 Erythrocyte distribution width (RBC) [Ratio] 14.5 % 11.9-15.3 [facility] Free thyroxine indexOrdered By: Nataly Toure on 05-28-2022 Free T4 index Calc [Mass/Vol] 2.9 1.2-4.9 [facility] Globulin Calc (S) [Mass/Vol] Ordered By: Nataly Toure on 05-28-2022 Globulin (S) [Mass/Vol] 3.6 g/dL [facility] Glucose [Mass/volume] in Ser um or PlasmaOrdered By: Nataly Toure on 05-28-2022 Glucose [Mass/Vol] 95 mg/dL 70-100 [facility] Comment on above: ADA recommended [...] from glycated hemoglobin (Bld) [Mass/Vol] 111 mg/dL [facility] Hematocrit Auto (Bld) [Volum e fraction]Ordered By: Nataly Toure on 05-28-2022 Hematocrit (Bld) [Volume fraction] 38.2 % 34.0-46.4 [facility] Hemoglobin A1c percentageOrd ered By: Nataly Toure on 05-28-2022 HbA1c (Bld) [Mass fraction] 5.5 % 4.3-5.6 [facility] Comment on above: Increased risk for d iabetes: 5.7 - 6.4diabetes: >6.4glycemic control for adults with diabetes: <7.0 Hemoglobin [Mass/volume] in BloodOrdered By: Nataly Toure on 05-28-2022 Hemoglobin (Bld) [Mass/Vol] 12.9 g/dL 11.8-15.4 [facility] Iron [Mass/volume] in Serum or PlasmaOrdered By: Nataly Toure on 05-28-2022 Iron [Mass/Vol] 30 ug/dL 50-212 [facility] Iron binding capacity [Mass/ volume] in Serum or PlasmaOrdered By: Nataly Toure on 05-28-2022 Iron binding capacity [Mass/Vol] 449 ug/dL 255-450 [facility] Iron saturation [Mass Fracti on] in Serum or PlasmaOrdered By: Nataly Toure on 05-28-2022 Iron saturation [Mass fraction] 6.7 % 20-50 [facility] Leukocytes [#/volume] correc kee for nucleated erythrocytes in Blood by Automated counOrdered By: Nataly Toure on 05-28-2022 WBC corrected for nucl RBC Auto (Bld) [#/Vol] 7.3 10*3/uL 3.8-11.6 [facility] Lymphocytes Auto (Bld) [#/Vo l]Ordered By: Nataly Toure on 05-28-2022 Lymphocytes (Bld) [#/Vol] 1.9 10*3/uL 1.00-4.8 [facility] Lymphocytes/100 WBC Auto (Bl d)Ordered By: Nataly Toure on 05-28-2022 Lymphocytes/100 WBC (Bld) 26.6 % . [facility] MCH Auto (RBC) [Entitic mass ]Ordered By: Nataly Toure on 05-28-2022 MCH (RBC) [Entitic mass] 26.9 pg 24.7-34.3 [facility] MCHC Auto (RBC) [Mass/Vol]Or dered By: Nataly Toure on 05-28-2022 MCHC (RBC) [Mass/Vol] 33.8 g/dL 32.0-35.[address] [facility] MCV Auto (RBC) [Entitic vol] Ordered By: Nataly Toure on 05-28-2022 MCV (RBC) [Entitic vol] 79.6 fL 80-100 [facility] Monocytes Auto (Bld) [#/Vol] Ordered By: Nataly Toure on 05-28-2022 Monocytes (Bld) [#/Vol] 0.6 10*3/uL 0.0-0.8 [facility] Monocytes/100 WBC Auto (Bld) Ordered By: Nataly Toure on 05-28-2022 Monocytes/100 WBC (Bld) 7.7 % . [facility] Neutrophils Auto (Bld) [#/Vo l]Ordered By: Nataly Toure on 05-28-2022 Neutrophils (Bld) [#/Vol] 4.6 10*3/uL 1.8-7.7 [facility] Neutrophils/100 WBC Auto (Bl d)Ordered By: Nataly Toure on 05-28-2022 Neutrophils/100 WBC (Bld) 63.0 % . [facility] No Panel InformationOrdered By: Nataly Toure on 05-28-2022 Estimated GFR (CKD-EPI) > 60.0 mL/Min [facility] Free Thyroxine (T4) Direct 10.8 ug/dL 4.5-12.0 [facility] Creatinine Clearance (Chem N/A [facility] Nucleated erythrocytes [Pres ence] in Blood by Automated countOrdered By: Nataly Toure on 05-28-2022 Nucleated RBC Auto Ql (Bld) 0.4 /100{WBC} 0-0.5 [facility] Platelet mean volume Auto (B ld) [Entitic vol]Ordered By: Nataly Toure on 05-28-2022 Platelet mean volume (Bld) [Entitic vol] 9.0 fL 6.3-10.7 [facility] Platelets Auto (Bld) [#/Vol] Ordered By: Nataly Toure on 05-28-2022 Platelets (Bld) [#/Vol] 247 10*3/uL 150-450 [facility] Potassium [Moles/volume] in Serum or PlasmaOrdered By: Nataly Toure on 05-28-2022 Potassium [Moles/Vol] 3.8 mmol/L 3.5-5.[address] [facility] Protein [Mass/volume] in Ser um or PlasmaOrdered By: Nataly Toure on 05-28-2022 Protein [Mass/Vol] 7.5 g/dL 6.4-8.9 [facility] RBC Auto (Bld) [#/Vol]Ordere d By: Nataly Toure on 05-28-2022 RBC (Bld) [#/Vol] 4.80 10*6/uL 3.60-5.00 [facility] Serum or plasma albumin/glob ulin mass ratioOrdered By: Nataly Toure on 05-28-2022 Albumin/Globulin [Mass ratio] 1.1 {ratio} [facility] Serum or plasma anion gap de terminationOrdered By: Nataly Toure on 05-28-2022 Anion gap [Moles/Vol] 12.2 mmol/L 6.0-15.0 [facility] Serum or plasma high density lipoprotein (HDL) cholesterol measurementOrdered By: Nataly Toure on 05-28-2022 Cholesterol in HDL [Mass/Vol] 42 mg/dL 35-85 [facility] Comment on above: HDL CHOL ATP-III CLA SSIFICATION Cardiovascular RiskHDL > or equal to 60 mg/dL LOWHDL < 40 mg/dL HIGH Serum or plasma thyroperoxid ase antibody assay (units/volume)Ordered By: Nataly Toure on 05-28-2022 TPO Ab Qn [IU]/mL 0-34 [facility] Comment on above: Performed at: [address] [id number] Director: Sam Lopez PhD, Phone: [phone] Serum or plasma total choles terol/high density lipoprotein (HDL) cholesterol mass ratOrdered By: Nataly Toure on 05-28-2022 Cholesterol.total/Chol esterol in HDL [Mass ratio] 6.4 {ratio} <5.0 [facility] Sodium [Moles/volume] in Ser um or PlasmaOrdered By: Nataly Toure on 05-28-2022 Sodium [Moles/Vol] 138 mmol/L 136-145 [facility] TSH DL <= 0.005 mIU/L QnOrde red By: Nataly Toure on 05-28-2022 TSH Qn 2.330 m[IU]/L 0.450-4.50 0 [facility] Transferrin [Mass/volume] in Serum or PlasmaOrdered By: Nataly Toure on 05-28-2022 Transferrin [Mass/Vol] 321 mg/dL 203-362 [facility] Triglyceride [Mass/volume] i n Serum or PlasmaOrdered By: Nataly Toure on 05-28-2022 Triglyceride [Mass/Vol] 939 mg/dL 0-149 [facility] Comment on above: If the triglyceride result [...] on 05-28-2022 T3 [Mass/Vol] 186 ng/dL 71-180 [facility] Triiodothyronine (T3) resin uptake testOrdered By: Nataly Toure on 05-28-2022 T3RU 27 % 24-39 [facility] Urea nitrogen [Mass/volume] in Serum or PlasmaOrdered By: Nataly Toure on 05-28-2022 Urea nitrogen [Mass/Vol] 11 mg/dL 7-25 [facility] WBC Auto (Bld) [#/Vol]Ordere d By: Nataly Toure on 05-28-2022 WBC (Bld) [#/Vol] 7.3 10*3/uL 3.8-11.6 [facility] XR LSPINE 2_3 VIEWSon 2022 [...] PILI MIGUEL Date: 2022-03-15 22:49 Normal [facility] CBC AUTO DIFFon 03-15-2022 BASO # 0.0 103/ul Normal 0.0-0.1 [facility] Comment on above: Performed By: #### P REGU #### [facility] [address] [place] [address] Dr. Moris Winter Basophils/100 WBC (Bld) 0.1 % Critically low 0.2-2.0 [facility] Comment on above: Performed By: #### P REGU #### [facility] [address] [address] [address] Moris Winter EO # 0.1 103/ul Normal 0.0-0.7 [facility] Comment on above: Performed By: #### P REGU #### [facility] [address] [address] [address] Moris Winter Eosinophils/100 WBC (Bld) 0.8 % Critically low 0.9-7.0 [facility] Comment on above: Performed By: #### P REGU #### [facility] [address] [place] [address] Dr. Moris Winter Erythrocyte distribution width (RBC) [Ratio] 13.3 % Normal 11.0-15.0 [facility] Comment on above: Performed By: #### P REGU #### [facility] [address] [place] [address] Dr. Moris Winter Hematocrit (Bld) [Volume fraction] 37.4 % Normal 36.0-48.0 [facility] Comment on above: Performed By: #### P REGU #### [facility] [address] [place] [address] Dr. Moris Winter Hemoglobin (Bld) [Mass/Vol] 13.2 g/dL Normal 12.0-16.0 [facility] Comment on above: Performed By: #### P REGU #### [facility] [address] [place] [address] Dr. Moris Winter IG # 0.02 10e3/ul Normal 0.00-0.03 [facility] Comment on above: Performed By: #### P REGU #### [facility] [address] [place] [address] Dr. Moris Winter IG % 0.2 % Normal 0.0-0.5 [facility] Comment on above: Performed By: #### P REGU #### [facility] [address] [place] [address] Dr. Moris Winter LYMPH # 1.2 103/ul Normal 1.2-3.8 [facility] Comment on above: Performed By: #### P REGU #### [facility] [address] [place] [address] Dr. Moris Winter Lymphocytes/100 WBC (Bld) 14.6 % Critically low 20.5-60.0 [facility] Comment on above: Performed By: #### P REGU #### [facility] [address] [place] [address] Dr. Moris Winter MANUAL DIFF REQ NO Normal [facility] Comment on above: Performed By: #### P REGU #### [facility] [address] [place] [address] Dr. Moris Winter MCH (RBC) [Entitic mass] 27.3 pg Normal 26.7-34.0 [facility] Comment on above: Performed By: #### P REGU #### [facility] [address] [place] [address] Dr. Moris Winter MCHC (RBC) [Mass/Vol] 35.3 g/dL Critically high 29.9-35.2 [facility] Comment on above: Performed By: #### P REGU #### [facility] [address] [place] [address] Dr. Moris Winter MCV (RBC) [Entitic vol] 77.3 fL Critically low 81.0-99.0 [facility] Comment on above: Performed By: #### P REGU #### [facility] [address] [place] [address] Dr. Moris Winter MONO # 0.5 103/ul Normal 0.3-0.8 [facility] Comment on above: Performed By: #### P REGU #### [facility] [address] [place] [address] Dr. Moris Winter Monocytes/100 WBC (Bld) 5.4 % Normal 1.7-12.0 [facility] Comment on above: Performed By: #### P REGU #### [facility] [address] [place] [address] Dr. Moris Winter NEUT # 6.5 103/ul Normal 1.4-6.5 [facility] Comment on above: Performed By: #### P REGU #### [facility] [address] [place] [address] Dr. Moris Winter Neutrophils/100 WBC (Bld) 78.9 % Critically high 43.0-75.0 [facility] Comment on above: Performed By: #### P REGU #### [facility] [address] [place] [address] Dr. Moris Winter Platelet mean volume (Bld) [Entitic vol] 10.1 fL Normal 9.5-13.5 [facility] Comment on above: Performed By: #### P REGU #### [facility] [address] [place] [address] Dr. Moris Winter PLT 256 103/ul Normal 150-450 [facility] Comment on above: Performed By: #### P REGU #### [facility] [address] [place] [address] Dr. Moris Winter RBC 4.84 106/ul Normal 4.20-5.40 [facility] Comment on above: Performed By: #### P REGU #### [facility] [address] [place] [address] Dr. Moris Winetr WBC 8.3 103/ul Normal 4.0-11.0 [facility] Comment on above: Performed By: #### P REGU #### [facility] [address] [place] [address] Dr. Moris Winter CRPon 03-15-2022 CRP 3.3 mg/dL Critically high <=1.0 [facility] Comment on above: Performed By: #### B MP, CRP #### [facility] [address] [place] [address] Dr. Moris Winter URon 03-15-2022 , QUAL Negative Normal NEGATIVE [facility] Comment on above: Performed By: #### P REGU #### [facility] [address] [place] [address] Dr. Moris Winter PROF CHEM 8 (BAS METB)on Anion gap [Moles/Vol] 15.8 mmol/L Normal [facility] Comment on above: Performed By: #### B MP, CRP #### [facility] [address] [place] [address] Dr. Moris Winter Calcium [Mass/Vol] 8.6 mg/dL Normal 8.5-10.1 [facility] Comment on above: Performed By: #### B MP, CRP #### [facility] [address] [place] [address] Dr. Moris Winter Chloride [Moles/Vol] 98 mmol/L Normal 98-107 [facility] Comment on above: Performed By: #### B MP, CRP #### [facility] [address] [place] [address] Dr. Moris Winter CO2 [Moles/Vol] 26.7 mmol/L Normal 21.0-32.0 [facility] Comment on above: Performed By: #### B MP, CRP #### [facility] [address] [place] [address] Dr. Moris Winter Creatinine [Mass/Vol] 0.80 mg/dL Normal 0.55-1.02 [facility] Comment on above: Performed By: #### B MP, CRP #### [facility] [address] [place] [address] Dr. Moris Winter EGFR-AF HAITIAN >60 Normal >=60 [facility] Comment on above: Performed By: #### B MP, CRP #### [facility] [address] [place] [address] Dr. Moris Winter EGFR-NON AF HAITIAN >60 Normal >=60 [facility] Comment on above: Performed By: #### B MP, CRP #### [facility] [address] [place] [address] Dr. Moris Winter Glucose [Mass/Vol] 103 mg/dL Normal 74-106 [facility] Comment on above: Performed By: #### B MP, CRP #### [facility] [address] [place] [address] Dr. Moris Winter Potassium [Moles/Vol] 3.5 mmol/L Normal 3.5-5.1 [facility] Comment on above: Performed By: #### B MP, CRP #### [facility] [address] [place] [address] Dr. Moris Winter Sodium [Moles/Vol] 137 mmol/L Normal 136-145 [facility] Comment on above: Performed By: #### B MP, CRP #### [facility] [address] [place] [address] Dr. Moris Winter Urea nitrogen [Mass/Vol] 15.0 mg/dL Normal 7.0-18.0 [facility] Comment on above: Performed By: #### B MP, CRP #### [facility] [address] [address] [address] Moris Winter Urea nitrogen/Creatinine [Mass ratio] 18.8 mg/mg Normal [facility] Comment on above: Performed By: #### B MP, CRP #### [facility] [address] [address] [address] Moris Winter SED RATE [facility] 2022 SED RATE 51 mm/hr Critically high <=20 [facility] Comment on above: Performed By: #### P REGU #### [facility] [address] [place] [address] Dr. Moris Winter Amphetamine Screen Ql (U)Ord ered By: TELMA Smith on 10-18-2021 Amphetamines Ql (U) Negative Negative [facility] Automated erythrocytes count in urine sediment (number/area)Ordered By: TELMA Smith on 10-18-2021 RBC Auto (Urine sed) [#/Area] 1-2 [HPF] 0-4 [facility] Automated leukocytes count i n urine sediment (number/area)Ordered By: TELMA Smith on 10-18-2021 WBC Auto (Urine sed) [#/Area] 20-49 [HPF] 0-4 [facility] Barbiturates [Presence] in U rineOrdered By: TELMA Smith on 10-18-2021 Barbiturates Ql (U) Negative Negative [facility] Basophils Auto (Bld) [#/Vol] Ordered By: TELMA Smith on 10-18-2021 Basophils (Bld) [#/Vol] 0.0 10*3/uL 0.0-0.2 [facility] Basophils/100 WBC Auto (Bld) Ordered By: TELMA Smith on 10-18-2021 Basophils/100 WBC (Bld) 0.3 % . [facility] Benzodiazepines [Presence] i n UrineOrdered By: TELMA Smith on 10-18-2021 Benzodiazepines Ql (U) Negative [facility] Bilirubin Test strip Ql (U)O rdered By: TELMA Smith on 10-18-2021 Bilirubin Ql (U) Negative Negative [facility] Blood hemoglobin measurement (mass/volume)Ordered By: TELMA Smith on 10-18-2021 Hemoglobin (Bld) [Mass/Vol] 11.3 g/dL 11.8-15.4 [facility] Blood leukocytes automated c ount (number/volume)Ordered By: TELMA Smith on 10-18-2021 WBC (Bld) [#/Vol] 10.1 10*3/uL 4.5-11.0 [facility] COVID-19 SOFIAOrdered By: MD DESEAN Smith on 10-18-2021 SARS-CoV+SARS-CoV-2 (COVID-19) Ag IA.rapid Ql (Resp) Negative Negative [facility] Comment on above: This is a duplicate [place] SARS Antigen (AUTUMN) result to be used for statistical tracking purpose only. Color Auto (U)Ordered By: MD DESEAN Smith on 10-18-2021 Color (U) Yellow Yellow [facility] Eosinophils Auto (Bld) [#/Vo l]Ordered By: TELMA Smith on 10-18-2021 Eosinophils (Bld) [#/Vol] 0.1 10*3/uL 0.0-0.45 [facility] Eosinophils/100 WBC Auto (Bl d)Ordered By: TELMA Smith on 10-18-2021 Eosinophils/100 WBC (Bld) 1.3 % . [facility] Erythrocyte distribution wid th Auto (RBC) [Ratio]Ordered By: TELMA Smith on 10-18-2021 Erythrocyte distribution width (RBC) [Ratio] 15.6 % 11.9-15.3 [facility] Hematocrit Auto (Bld) [Volum e fraction]Ordered By: TELMA Smith on 10-18-2021 Hematocrit (Bld) [Volume fraction] 34.9 % 34.0-46.4 [facility] Ketones Auto test strip (U) [Mass/Vol]Ordered By: TELMA Smith on 10-18-2021 Ketones (U) [Mass/Vol] Trace Negative [facility] - Drug toxicology Ordered By: TELMA Smith on 10-18-2021 Opiates Ql (U) Negative Negative [facility] - Hematology and Cell countsOrdered By: TELMA Smith on 10-18-2021 Nucleated RBC/100 WBC (Bld) [Ratio] 0.1 % 0-0.5 [facility] - UrinalysisOrder ed By: TELMA Smith on 10-18-2021 Hyaline casts LM Ql (Urine sed) 9-19 [LPF] 0-8 [facility] Lymphocytes Auto (Bld) [#/Vo l]Ordered By: TELMA Smith on 10-18-2021 Lymphocytes (Bld) [#/Vol] 1.7 10*3/uL 1.00-4.8 [facility] Lymphocytes/100 WBC Auto (Bl d)Ordered By: TELMA Smith on 10-18-2021 Lymphocytes/100 WBC (Bld) 17.0 % . [facility] MCH Auto (RBC) [Entitic mass ]Ordered By: TELMA Smith on 10-18-2021 MCH (RBC) [Entitic mass] 25.9 pg 24.7-34.3 [facility] MCHC Auto (RBC) [Mass/Vol]Or dered By: TELMA Smith on 10-18-2021 MCHC (RBC) [Mass/Vol] 32.5 g/dL 32.0-35.[address] [facility] MCV Auto (RBC) [Entitic vol] Ordered By: TELMA Smith on 10-18-2021 MCV (RBC) [Entitic vol] 79.6 fL 80-100 [facility] Monocytes Auto (Bld) [#/Vol] Ordered By: TELMA Smith on 10-18-2021 Monocytes (Bld) [#/Vol] 0.8 10*3/uL 0.0-0.8 [facility] Monocytes/100 WBC Auto (Bld) Ordered By: TELMA Smith on 10-18-2021 Monocytes/100 WBC (Bld) 8.1 % . [facility] Neutrophils Auto (Bld) [#/Vo l]Ordered By: TELMA Smith on 10-18-2021 Neutrophils (Bld) [#/Vol] 7.4 10*3/uL 1.8-7.7 [facility] Neutrophils/100 WBC Auto (Bl d)Ordered By: TELMA Smith on 10-18-2021 Neutrophils/100 WBC (Bld) 73.3 % . [facility] Nitrite Test strip Ql (U)Ord ered By: TELMA Smith on 10-18-2021 Nitrite Ql (U) Negative Negative [facility] No Panel InformationOrdered By: TELMA Smith on 10-18-2021 SARS Antigen (LFIA) [facility] Phencyclidine Screen Ql (U)O rdered By: TELMA Smith on 10-18-2021 Phencyclidine Ql (U) Negative Negative [facility] Comment on above: These are unconfirme d results and should not be used for legal purposes. Drug Cut-Off Concentration: AMPH 1000 ng/mL FAVIOLA 200 ng/mL THA 200 ng/mL COCM 300 ng/mL OP 300 ng/mL PCP 25 ng/mL Platelet mean volume Auto (B ld) [Entitic vol]Ordered By: TELMA Smith on 10-18-2021 Platelet mean volume (Bld) [Entitic vol] 9.7 fL 6.3-10.7 [facility] Platelets Auto (Bld) [#/Vol] Ordered By: TELMA Smith on 10-18-2021 Platelets (Bld) [#/Vol] 190 10*3/uL 150-450 [facility] Protein Auto test strip (U) [Mass/Vol]Ordered By: TELMA Smith on 10-18-2021 Protein (U) [Mass/Vol] Trace mg/dL Negative [facility] RBC Auto (Bld) [#/Vol]Ordere d By: TELMA Smith on 10-18-2021 RBC (Bld) [#/Vol] 4.38 10*6/uL 3.60-5.00 [facility] S. agalactiae Org specific c x Ql (Unsp spec)Ordered By: Radha Molina on 10-18-2021 Group B Streptococcus Culture Strep. agalactiae Grp B [facility] Specific gravity Auto test s trip (U) [Rel density]Ordered By: TELMA Smith on 10-18-2021 Specific gravity (U) [Rel density] 1.020 1.001-1.03 0 [facility] Squamous epithelial cells de tection in urine sediment by light microscopyOrdered By: TELMA Smith on 10-18-2021 Epithelial cells.squamous LM Ql (Urine sed) 5-9 [HPF] 0-2 [facility] Urine bacteria detection by automated methodOrdered By: TELMA Smith on 10-18-2021 Bacteria Auto Ql (U) 1+ None Seen [facility] Urine clarity by refractomet ry automatedOrdered By: TELMA Smith on 10-18-2021 Clarity Refractometry automated (U) Cloudy Clear [facility] Urine cocaine detectionOrder ed By: TELMA Smith on 10-18-2021 Cocaine Ql (U) Negative Negative [facility] Urine glucose measurement by automated test strip (mass/volume)Ordered By: SHELLIE Smith on 10-18-2021 Glucose Auto test strip (U) [Mass/Vol] Normal mg/dL Normal [facility] Urine hemoglobin detection b y automated test stripOrdered By: TELMA Smith on 10-18-2021 Hemoglobin Auto test strip Ql (U) Negative Negative [facility] Urine leukocyte esterase det ection by automated test stripOrdered By: TELMA Smith on 10-18-2021 Leukocyte esterase Auto test strip Ql (U) 3+ Negative [facility] Urobilinogen Auto test strip (U) [Mass/Vol]Ordered By: TELMA Smith on 10-18-2021 Urobilinogen (U) [Mass/Vol] Normal mg/dL Normal [facility] pH Auto test strip (U)Ordere d By: TELMA Smith on 10-18-2021 pH (U) 6.5 [pH] 5.0-9.0 [facility] UA (CLEAN/CATCH) PUBLIC HEALTH NUTRITIONIST/MICRO I F IND.on 08-31-2021 Bilirubin Ql (U) Negative Normal NEGATIVE [facility] Comment on above: Performed By: #### U ACSIND, UMICRO #### [facility] [address] [address] [address] Moris Winter Clarity (U) SL CLOUDY Abnormal CLEAR [facility] Comment on above: Performed By: #### U ACSIND, UMICRO #### [facility] [address] [address] [address] Moris Winter Color (U) LT. YELLOW Normal YELLOW [facility] Comment on above: Performed By: #### U ACSIND, UMICRO #### [facility] [address] [place] [address] Dr. Moris Winter Glucose Ql (U) Negative Normal NEGATIVE [facility] Comment on above: Performed By: #### U ACSIND, UMICRO #### [facility] [address] [address] [address] Moris Winter Hemoglobin Ql (U) TRACE-INTACT Abnormal NEGATIVE [facility] Comment on above: Performed By: #### U ACSIND, UMICRO #### [facility] [address] [place] [address] Dr. Moris Winter Ketones Ql (U) Negative Normal NEGATIVE [facility] Comment on above: Performed By: #### U ACSIND, UMICRO #### [facility] [address] [address] [address] Moris Winter LEUKOCYTES TRACE Abnormal NEGATIVE [facility] Comment on above: Performed By: #### U ACSIND, UMICRO #### [facility] [address] [place] [address] Dr. Moris Winter Nitrite Ql (U) Negative Normal NEGATIVE [facility] Comment on above: Performed By: #### U ACSIND, UMICRO #### [facility] [address] [place] [address] Dr. Moris Winter pH (U) 7.0 [pH] Normal 5-9 [facility] Comment on above: Performed By: #### U ACSNARENDRA UMICRO #### [facility] [address] [place] [address] Dr. Moris Winter SPEC GRAVITY 1.010 Normal 1.005-<=1. 025 [facility] Comment on above: Performed By: #### U ACSNARENDRA UMICRO #### [facility] [address] [place] [address] Dr. Moris Winter UA PROTEIN Negative Normal NEGATIVE/ TRACE [facility] Comment on above: Performed By: #### U ACSNARENDRA UMICRO #### [facility] [address] [place] [address] Dr. Moris Winter UR MICRO IND INDICATED Normal [facility] Comment on above: Performed By: #### U ACSNARENDRA UMICRO #### [facility] [address] [place] [address] Dr. Moris Winter Urobilinogen Qn (U) 0.2 {Marcin'U}/dL Normal 0.2 - 1. 0 [facility] Comment on above: Performed By: #### U ACSNARENDRA UMICRO #### [facility] [address] [place] [address] Dr. Moris Winter URINE MICROSCOPIC ONLYon BACTERIA NONE SEEN Normal NONE SEEN [facility] Comment on above: Performed By: #### U ACSNARENDRA UMICRO #### [facility] [address] [place] [address] Dr. Moris Winter Bacteria identified Cx Nom (U) NOT INDICATED Normal [facility] Comment on above: Performed By: #### U ACSNARENDRA UMICRO #### [facility] [address] [place] [address] Dr. Moris Winter CAST NONE SEEN Normal NONE SEEN [facility] Comment on above: Performed By: #### U ACSNARENDRA UMICRO #### [facility] [address] [place] [address] Dr. Moris Winter Crystals LM Nom (Urine sed) NONE SEEN Normal NONE SEEN [facility] Comment on above: Performed By: #### U ACSIND, UMICRO #### [facility] [address] [address] [address] Moris Winter Epithelial cells LM Ql (Urine sed) MODERATE Abnormal NONE SEEN /RARE [facility] Comment on above: Performed By: #### U ACSIND, UMICRO #### [facility] [address] [address] [address] Moris Winter MUCOUS NONE SEEN Normal NONE SEEN [facility] Comment on above: Performed By: #### U ACSIND, UMICRO #### [facility] [address] [address] [address] Moris Winter RBC 0-2 Normal 0-2 [facility] Comment on above: Performed By: #### U ACSIND, UMICRO #### [facility] [address] [address] [address] Moris Winter WBC 0-2 Abnormal NONE SEEN [facility] Comment on above: Performed By: #### U ACSIND, UMICRO #### [facility] [address] [address] [address] Moris Winter Covid-19 PCR ([facility])on 07-17 SARS-CoV-2 (COVID-19) RNA SVETLANA+probe Ql (Unsp spec) Detected Critically abnormal NOT DETECTED [facility] Comment on above: Result Comment: This test is not yet approved or cleared by the [place] FDA. When there are no FDA-approved or cleared tests available, and other criteria are met, FDA can make tests available under an emergency access mechanism called an Emergency Use Authorization (EUA). The EUA for this test is supported by the [place] of Health and Human Service's declaration that [...] used). Performed By: #### P REGU #### [facility] [address] [place] [address] Dr. Moris Winter INFLUENZA A AND B AGon 08-08 [facility] BELOW Normal [facility] Comment on above: Result Comment: Nega tive for Flu A protein angiten. Infection due to Flu A cannot be ruled out. Flu A angiten in the sample may be below the detection limit of the test. Performed By: #### P REGU #### [facility] [address] [place] [address] Dr. Moris [facility] BEL[facility] Normal [facility] Comment on above: Result Comment: Nega tive for Flu B protein antigen. Infection due to Flu B cannot be ruled out. Flu B antigen in the sample may be below the detection limit of the test. Performed By: #### P REGU #### [facility] [address] [place] [address] Dr. Moris Winter INFLUENZA A AG Negative Normal NEGATIVE SEE COMMENT [facility] Comment on above: Performed By: #### P REGU #### [facility] [address] [place] [address] Dr. Moris Winter INFLUENZA B AG Negative Normal NEGATIVE SEE COMMENT [facility] Comment on above: Performed By: #### P REGU #### [facility] [address] [place] [address] Dr. Moris Winter INTERNAL CONTROLS Within Normal Limits Normal Wi thin Normal Limits [facility] Comment on above: Performed By: #### P REGU #### [facility] [address] [place] [address] Dr. Moris Winter Serum or plasma beta choriog onadotropin measurement (units/volume)Ordered By: Radha Molina on 07-21-2021 [place] [address].00 m[IU]/mL [facility] Comment on above: Approximate Approxim ate hCG Gestational Age Range (mIU/ml) (weeks) 0.2-1 5-50 1-2 50-500 2-3 100-5,000 3-4 500-10,000 4-5 1,000-50,000 5-6 10,000-100,000 6-8 15,000-200,000 8-12 10,000-100,000 Operative Reporton 9 Operative Report MR#: [id number] S [facility] Pt. Name: Rosette Alba Room #: OR [...] placed Adaptic under the skin using a [place] and tied this down with a 5-0 [...] Carballo MD Date Trans: 08/03/2018 08:27 P/antony [id number] cc: Soraya Romo [address] [place] [id number] Normal The [facility] POC GLUCOSE LABon 08-03-2018 Glucose [Mass/Vol] 105 mg/dL High 70-100 [facility] Comment on above: Performed By: #### [id number] #### [facility] [address] [place] [address], [facility] POC URINE PREGNANCYon 2018 Beta HCG ( test) Ql (U) Negative Normal NEGATIVE [facility] Comment on above: Result Comment: Perf ormed in PACU Performed By: #### [id number] #### [facility] Renan [address] Vital Signs Date Time Vital Sign Value Performing Clinician Facility 04-13-2024 11:56-0500 Body height 160 cm Ni Carroll MD Work Phone: [facility] 04-13-2024 11:56-0500 Body mass index (BMI) [Ratio] 40.19 kg/m2 Ni Carroll MD Work Phone: [facility] 04-13-2024 11:56-0500 Body weight 102.88 kg Ni Carroll MD Work Phone: [facility] 04-13-2024 11:56-0500 Diastolic blood pressure 64 mm[Hg] Ni Carroll MD Work Phone: [facility] 04-13-2024 11:56-0500 Heart rate 98 /min Ni Carroll MD Work Phone: [facility] 04-13-2024 11:56-0500 Systolic blood pressure 116 mm[Hg] Ni Carroll MD Work Phone: [facility] 04-06-2024 11:45-0500 Body mass index (BMI) [Ratio] 40.46 kg/m2 Kim QUICK Work Phone: [facility] 04-06-2024 11:45-0500 Body weight 103.6 kg Kim QUICK Work Phone: [facility] 04-06-2024 11:45-0500 Diastolic blood pressure 70 mm[Hg] Kim QUICK Work Phone: [facility] 04-06-2024 11:45-0500 Systolic blood pressure 114 mm[Hg] Kim QUICK Work Phone: [facility] 03-09-2024 10:38-0500 Body mass index (BMI) [Ratio] 39.17 kg/m2 Camacho Hernandez DO Work Phone: [facility] 03-09-2024 10:38-0500 Body weight 100.31 kg Camacho Mary DO Work Phone: [facility] 03-09-2024 10:38-0500 Diastolic blood pressure 60 mm[Hg] Camacho Mary DO Work Phone: [facility] 03-09-2024 10:38-0500 Systolic blood pressure 116 mm[Hg] Camacho Mary DO Work Phone: [facility] 10-20-2023 08:28-0400 Body height 160.02 cm [employer]HOU[employer] Nataly Spasic Work Phone: [facility] 10-20-2023 08:28-0400 Body mass index (BMI) [Ratio] 38 kg/m2 [employer] Nataly Spasic Work Phone: [facility] 10-20-2023 08:28-0400 Body temperature 97.7 [degF] [employer] Nataly Spasic Work Phone: [facility] 10-20-2023 08:28-0400 Body weight 97.52 kg [employer] Nataly Spasic Work Phone: [facility] 10-20-2023 08:28-0400 Diastolic blood pressure 74 mm[Hg] [employer] Nataly Spasic Work Phone: [facility] 10-20-2023 08:28-0400 Heart rate 75 /min [employer] Nataly Spasic Work Phone: [facility] 10-20-2023 08:28-0400 Respiratory rate 18 /min [employer] Nataly Spasic Work Phone: [facility] 10-20-2023 08:28-0400 SaO2% (BldA) [Mass fraction] 99 % [employer] Nataly Spasic Work Phone: [facility] 10-20-2023 08:28-0400 Systolic blood pressure 107 mm[Hg] [employer] Nataly Spasic Work Phone: [facility] 10-04-2023 22:40-0400 Body height 160.02 cm [employer] Nataly Spasic Work Phone: [facility] 10-04-2023 22:40-0400 Body temperature 97.7 [degF] [employer] Nataly Spasic Work Phone: [facility] 10-04-2023 22:40-0400 Body weight 95.5 kg [employer] Nataly Spasic Work Phone: [facility] 10-04-2023 22:40-0400 Diastolic blood pressure 75 mm[Hg] [employer] Nataly Spasic Work Phone: [facility] 10-04-2023 22:40-0400 Heart rate 95 /min [employer] Nataly Spasic Work Phone: [facility] 10-04-2023 22:40-0400 Respiratory rate 16 /min [employer] Nataly Spasic Work Phone: [facility] 10-04-2023 22:40-0400 SaO2% (BldA) [Mass fraction] 98 % [employer] Nataly Spasic Work Phone: [facility] 10-04-2023 22:40-0400 Systolic blood pressure 132 mm[Hg] [employer] Nataly Spasic Work Phone: [facility] 09-26-2023 21:36-0400 Body temperature 98.1 [degF] [employer] Nataly Spasic Work Phone: [facility] 09-26-2023 21:36-0400 Diastolic blood pressure 74 mm[Hg] [employer] Nataly Spasic Work Phone: [facility] 09-26-2023 21:36-0400 Heart rate 90 /min [employer] Nataly Spasic Work Phone: [facility] 09-26-2023 21:36-0400 Respiratory rate 16 /min [employer] Nataly Spasic Work Phone: [facility] 09-26-2023 21:36-0400 SaO2% (BldA) [Mass fraction] 99 % [employer] Nataly Spasic Work Phone: [facility] 09-26-2023 21:36-0400 Systolic blood pressure 145 mm[Hg] [employer] Nataly Spasic Work Phone: [facility] 09-26-2023 21:35-0400 Body height 160.02 cm [employer] Nataly Spasic Work Phone: [facility] 09-26-2023 21:35-0400 Body weight 96.7 kg [employer] Nataly Spasic Work Phone: [facility] 08-20-2023 23:05-0400 Body height 160.02 cm [employer] Nataly Spasic Work Phone: [facility] 08-20-2023 23:05-0400 Body temperature 98.3 [degF] [employer] Nataly Spasic Work Phone: [facility] 08-20-2023 23:05-0400 Body weight 97.5 kg [employer] Nataly Spasic Work Phone: [facility] 08-20-2023 23:05-0400 Diastolic blood pressure 66 mm[Hg] [employer] Nataly Spasic Work Phone: [facility] 08-20-2023 23:05-0400 Heart rate 90 /min [employer] Nataly Spasic Work Phone: [facility] 08-20-2023 23:05-0400 Respiratory rate 20 /min [employer] Nataly Spasic Work Phone: [facility] 08-20-2023 23:05-0400 SaO2% (BldA) [Mass fraction] 99 % [employer] Nataly Spasic Work Phone: [facility] 08-20-2023 23:05-0400 Systolic blood pressure 136 mm[Hg] [employer] Nataly Spasic Work Phone: [facility] 02-13-2023 21:40-0500 Body temperature 97.7 [degF] [employer] Nataly Spasic Work Phone: [facility] 02-13-2023 21:40-0500 Diastolic blood pressure 87 mm[Hg] [employer] Nataly Spasic Work Phone: [facility] 02-13-2023 21:40-0500 Heart rate 100 /min [employer] Nataly Spasic Work Phone: [facility] 02-13-2023 21:40-0500 Respiratory rate 18 /min [employer] Nataly Spasic Work Phone: [facility] 02-13-2023 21:40-0500 SaO2% (BldA) [Mass fraction] 96 % [employer] Nataly Spasic Work Phone: [facility] 02-13-2023 21:40-0500 Systolic blood pressure 140 mm[Hg] [employer] Nataly Spasic Work Phone: [facility] 02-13-2023 11:10-0500 Body height 160.02 cm [employer] Nataly Spasic Work Phone: [facility] 02-13-2023 11:10-0500 Body weight 99.79 kg [employer] Nataly Spasic Work Phone: [facility] 02-01-2023 19:30-0500 Body temperature 97.3 [degF] [employer] Nataly Spasic Work Phone: [facility] 02-01-2023 19:30-0500 Diastolic blood pressure 75 mm[Hg] [employer] Nataly Spasic Work Phone: [facility] 02-01-2023 19:30-0500 Heart rate 94 /min [employer] Nataly Spasic Work Phone: [facility] 02-01-2023 19:30-0500 Respiratory rate 14 /min [employer] Nataly Spasic Work Phone: [facility] 02-01-2023 19:30-0500 SaO2% (BldA) [Mass fraction] 98 % [employer] Nataly Spasic Work Phone: [facility] 02-01-2023 19:30-0500 Systolic blood pressure 123 mm[Hg] [employer] Nataly Spasic Work Phone: [facility] 01-31-2023 09:00-0500 Body temperature 98 [degF] [employer] Nataly Spasic Work Phone: [facility] 01-31-2023 09:00-0500 Respiratory rate 16 /min [employer] Nataly Spasic Work Phone: [facility] 01-31-2023 08:46-0500 Diastolic blood pressure 57 mm[Hg] [employer] Nataly Spasic Work Phone: [facility] 01-31-2023 08:46-0500 Heart rate 112 /min [employer] Nataly Spasic Work Phone: [facility] 01-31-2023 08:46-0500 Systolic blood pressure 112 mm[Hg] [employer] Nataly Spasic Work Phone: [facility] 01-31-2023 06:31-0500 SaO2% (BldA) [Mass fraction] 96 % [employer] Nataly Spasic Work Phone: [facility] 01-31-2023 00:08-0500 Body height 160.02 cm [employer]INGHOUSE [employer] Nataly Spasic Work Phone: [facility] 01-31-2023 00:08-0500 Body weight 97.52 kg [employer]SE K[employer] Nataly Spasic Work Phone: [facility] 01-21-2023 09:56-0500 Body height 157.48 cm [employer] Nataly Spasic Work Phone: [facility] 01-21-2023 09:56-0500 Body weight 81.64 kg [employer] Nataly Spasic Work Phone: [facility] 12-01-2022 18:06-0400 Diastolic blood pressure 75 mm[Hg] [employer] Nataly Spasic Work Phone: [facility] 12-01-2022 18:06-0400 Heart rate 109 /min [employer] Nataly Spasic Work Phone: [facility] 12-01-2022 18:06-0400 Respiratory rate 17 /min [employer] Nataly Spasic Work Phone: [facility] 12-01-2022 18:06-0400 SaO2% (BldA) [Mass fraction] 99 % [employer] Nataly Spasic Work Phone: [facility] 12-01-2022 18:06-0400 Systolic blood pressure 123 mm[Hg] [employer] Nataly Spasic Work Phone: [facility] 12-01-2022 14:32-0400 Body height 160.02 cm [employer] Nataly Spasic Work Phone: [facility] 12-01-2022 14:32-0400 Body temperature 97.6 [degF] [employer] Nataly Spasic Work Phone: [facility] 12-01-2022 14:32-0400 Body weight 101.2 kg [employer] Nataly Spasic Work Phone: [facility] 11-20-2022 19:00-0400 Respiratory rate 16 /min [employer] Nataly Spasic Work Phone: [facility] 11-20-2022 18:14-0400 Diastolic blood pressure 65 mm[Hg] [employer] Nataly Spasic Work Phone: [facility] 11-20-2022 18:14-0400 Heart rate 100 /min [employer] Nataly Spasic Work Phone: [facility] 11-20-2022 18:14-0400 Systolic blood pressure 131 mm[Hg] [employer] Nataly Spasic Work Phone: [facility] 11-20-2022 18:05-0400 SaO2% (BldA) [Mass fraction] 99 % [employer] Nataly Spasic Work Phone: [facility] 11-20-2022 17:21-0400 Body height 160.02 cm [employer] Nataly Spasic Work Phone: [facility] 11-20-2022 17:21-0400 Body weight 98.88 kg [employer] Nataly Spasic Work Phone: [facility] 11-19-2022 13:49-0400 Respiratory rate 16 /min [employer] Nataly Spasic Work Phone: [facility] 11-19-2022 13:30-0400 Body temperature 97.4 [degF] [employer] Nataly Spasic Work Phone: [facility] 11-19-2022 12:53-0400 Diastolic blood pressure 71 mm[Hg] [employer] Nataly Spasic Work Phone: [facility] 11-19-2022 12:53-0400 Heart rate 109 /min [employer] Nataly Spasic Work Phone: [facility] 11-19-2022 12:53-0400 Systolic blood pressure 125 mm[Hg] [employer] Nataly Spasic Work Phone: [facility] 11-19-2022 12:49-0400 SaO2% (BldA) [Mass fraction] 99 % [employer] Nataly Spasic Work Phone: [facility] 11-19-2022 12:23-0400 Body height 160.02 cm [employer]INGHOU[employer] K[employer] Nataly Toure Work Phone: [facility] 11-19-2022 12:23-0400 Body weight 98.88 kg [employer] Nataly Jerniganc Work Phone: [facility] 10-18-2021 05:08-0400 Diastolic blood pressure 58 mm[Hg] DO Obdulia Oneil Work Phone: [facility] 10-18-2021 05:08-0400 Heart rate 96 /min DO Obdulia Oneil Work Phone: [facility] 10-18-2021 05:08-0400 SaO2% (BldA) [Mass fraction] 98 % DO Obdulia Oneil Work Phone: [facility] 10-18-2021 05:08-0400 Systolic blood pressure 118 mm[Hg] DO Obdulia Oneil Work Phone: [facility] 10-18-2021 05:00-0400 Body temperature 98.3 [degF] DO Obdulia Oneil Work Phone: [facility] 10-18-2021 05:00-0400 Respiratory rate 16 /min DO Obdulia Oneil Work Phone: [facility] 10-18-2021 01:57-0400 Body weight 102.51 kg DO Obdulia Oneil Work Phone: [facility] 10-18-2021 01:31-0400 Body height 160.02 cm DO Obdulia Oneil Work Phone: [facility] Encounters Encounter Date Encounter Type Care Provider Facility Start: 04-14-2024 End: 04-14-2024 Clinisync Result Encounter Camacho Mary DO Work Phone: [facility] Unsolicited Start: 04-14-2024 End: 04-14-2024 Clinisync Result Encounter Camacho Mary DO Work Phone: [facility] Unsolicited Start: 04-13-2024 End: 04-13-2024 Office consultation new/estab patient 60 min Ni Carroll MD Work Phone: [facility] Comment on above: delivery aft er section (Primary Dx) Start: 04-13-2024 End: 04-13-2024 Orders Only Berenice Vyas RN [facility] Comment on above: History of d nay, currently (Primary Dx) Start: 04-06-2024 End: 04-06-2024 Bamboo [...] acute Start: 04-06-2024 End: 04-06-2024 ambulatory KIM HAMILTON Not Available Start: 03-17-2024 End: 03-20-2024 Chart abstracting Ni Carroll MD Work Phone: [facility] Start: 03-14-2024 End: 03-14-2024 Clinisync Result [...] [id number] Start: 11-03-2023 ambulatory Nataly Toure Facility :[facility] Start: 10-20-2023 Registered Recurring [employer]C Andrez Toure Work Phone: [facility] Acute Work Phone: Start: 10-20-2023 End: 10-20-2023 ambulatory [employer] K[employer]C Nataly E Spasic Work Phone: [facility] Work Phone: Start: 10-20-2023 End: 10-20-2023 Patient encounter procedure [employer] Nataly Spasic Work Phone: [facility] Ambulatory Work Phone: Start: 10-07-2023 End: 10-07-2023 Patient encounter procedure [employer] Nataly Spasic Work Phone: [facility] [place] Work Phone: Start: 10-07-2023 End: 10-07-2023 ambulatory [employer] Nataly E Spasic Work Phone: [facility] Work Phone: Start: 10-04-2023 End: 10-05-2023 Emergency department patient visit [employer]C Nataly Spasic Work Phone: [facility] Work Phone: Start: 09-30-2023 End: 09-30-2023 ambulatory [employer]C Nataly E Spasic Work Phone: [facility] Work Phone: Start: 09-30-2023 End: 09-30-2023 Departed Referred [employer] Nataly Spasic Work Phone: [facility] [place] Work Phone: Start: 09-26-2023 End: 09-27-2023 Emergency department patient visit [employer] Nataly Spasic Work Phone: [facility] Work Phone: Start: 08-20-2023 End: 08-21-2023 Emergency department patient visit [employer] Nataly Spasic Work Phone: [facility] Work Phone: Start: 08-03-2023 End: 08-03-[address] [facility] Work Phone: Start: 08-03-2023 End: 08-03-2023 Departed Referred [employer]C Nataly Spasic Work Phone: [facility] Start: 05-27-2023 End: 05-27-2023 ambulatory RADHA E RINKES Not Available Start: 05-25-2023 End: 05-25-[address] Not Available Start: 05-05-2023 End: 05-05-2023 ambulatory RADHA E RINKES Not Available Start: 04-15-2023 End: 04-15-2023 ambulatory Nataly E Spasic Facility:[facility] Start: 03-17-2023 End: 03-17-2023 Patient encounter procedure PHYSICIAN NO [facility] [place] Work Phone: Start: 03-17-2023 End: 03-17-2023 ambulatory PHYSICIAN NO [facility] Work Phone: Start: 03-04-2023 End: 03-04-2023 ambulatory PHYSICIAN NO [facility] Work Phone: Start: 03-04-2023 End: 03-04-2023 Departed Referred PHYSICIAN NO [facility] Start: 02-13-2023 End: 02-13-2023 Evaluation and management of inpatient [employer]C Nataly Spasic Work Phone: [facility] [place] Work Phone: Start: 02-01-2023 End: 02-01-2023 Patient encounter procedure [employer] Nataly Spasic Work Phone: [facility] [place] Labor - O/P Start: 02-01-2023 End: 02-01-2023 ambulatory [employer] K[employer]C Nataly E Spasic Work Phone: [facility] Work Phone: Start: 01-30-2023 End: 01-31-2023 Patient encounter procedure [employer]C Nataly Spasic Work Phone: [facility] Labor - O/P Start: 01-30-2023 End: 01-31-2023 ambulatory [employer]C Nataly E Spasic Work Phone: [facility] Work Phone: Start: 01-22-2023 End: 01-22-2023 Patient encounter procedure [employer] Nataly Spasic Work Phone: [facility] Labor - O/P Start: 01-22-2023 End: 01-22-2023 ambulatory [employer]C Nataly E Spasic Work Phone: [facility] Work Phone: Start: 01-21-2023 End: 01-21-2023 Patient encounter procedure [employer]C Nataly Spasic Work Phone: [facility] Labor - O/P Start: 01-21-2023 End: 01-21-2023 ambulatory [employer] K[employer]C Nataly E Spasic Work Phone: [facility] Work Phone: Start: 01-05-2023 End: 01-05-2023 ambulatory [employer] K[employer]C Nataly E Spasic Work Phone: [facility] Work Phone: Start: 01-05-2023 End: 01-05-2023 Departed Referred [employer] KEEPER[employer]C Nataly Spasic Work Phone: [facility] [place] Work Phone: Start: 12-22-2022 End: 12-22-2022 Patient encounter procedure [employer]C Nataly Spasic Work Phone: [facility] [place] Work Phone: Start: 12-22-2022 End: 12-22-2022 ambulatory [employer]C Nataly E Spasic Work Phone: [facility] Work Phone: Start: 12-08-2022 End: 12-08-2022 ambulatory [employer]INGHOUSE KEEPER-C Ntaaly E Spasic Work Phone: [facility] Work Phone: Start: 12-08-2022 End: 12-08-2022 Departed Referred [employer] K[employer]C Nataly Spasic Work Phone: [facility] [place] Work Phone: Start: 12-03-2022 End: 12-03-2022 ambulatory [employer] K[employer]-C Nataly E Spasic Work Phone: [facility] Work Phone: Start: 12-03-2022 End: 12-03-2022 Departed Referred [employer]INGHOUSE KEEPER-C Nataly Spasic Work Phone: [facility] Start: 12-01-2022 End: 12-01-2022 Emergency department patient visit [employer]INGHOU[employer] KEEPER-C Nataly Spasic Work Phone: [facility]Emergency [facility] Work Phone: Start: 11-21-2022 End: 11-21-2022 ambulatory [employer] K[employer]-C Nataly E Spasic Work Phone: [facility] Work Phone: Start: 11-21-2022 End: 11-21-2022 Patient encounter procedure [employer] KEEPER-C Nataly Spasic Work Phone: [facility] [place] Labor - O/P Start: 11-20-2022 End: 11-20-2022 ambulatory [employer]-C Nataly E Spasic Work Phone: [facility] Work Phone: Start: 11-20-2022 End: 11-20-2022 Patient encounter procedure [employer] K[employer]-C Nataly Spasic Work Phone: [facility] Labor - O/P Start: 11-19-2022 End: 11-19-2022 ambulatory [employer] K[employer]-C Nataly E Spasic Work Phone: [facility] Work Phone: Start: 11-19-2022 End: 11-19-2022 Patient encounter procedure [employer]C Nataly Spasic Work Phone: [facility] Labor - O/P Start: 07-13-2022 End: 07-14-2022 ambulatory YNES HARDEN . Facility:[facility] Start: 06-23-2022 End: 06-23-2022 ambulatory [employer]-C Nataly E Spasic Work Phone: [facility] Work Phone: Start: 06-23-2022 End: 06-23-2022 Patient encounter procedure [employer]C Nataly Spasic Work Phone: [facility] Work Phone: Start: 06-16-2022 End: 06-16-2022 Departed Referred [employer]SE K[employer]C Nataly Spasic Work Phone: [facility] Start: 06-04-2022 End: 06-04-2022 ambulatory [employer]-C Nataly E Spasic Work Phone: [facility] Work Phone: Start: 06-04-2022 End: 06-04-2022 Patient encounter procedure [employer] K[employer]C Nataly Spasic Work Phone: [facility] [place] Work Phone: Start: 06-03-2022 End: 06-03-[address] SHARMILA BAIG . Facility:[facility] Start: 05-28-2022 End: 05-28-2022 ambulatory [employer]C Nataly Spasic Work Phone: [facility] Work Phone: Start: 05-28-2022 End: 05-28-2022 Departed Referred [employer]ING[employer]SE KEEPER-C Nataly Toure Work Phone: [facility] Start: 03-15-2022 End: 03-16-2022 ambulatory CORRINA DHALIWAL Facility: Start: 10-18-2021 End: 10-18-2021 Evaluation and management of inpatient DO Obdulia Oneil Work Phone: [facility] Labor and Delivery Start: 10-16-2021 End: 10-16-2021 Departed Referred DO Obdulia Oneil Work Phone: [facility] [place] Start: 08-31-2021 End: 08-31-[address] CAMACHO HERNANDEZ . Facility: Start: 08-08-2021 End: 08-08-2021 ambulatory CORRINA DHALIWAL Facility: Start: 07-21-2021 End: 07-21-2021 Patient encounter procedure DO Obdulia Oneil Work Phone: [facility] [place] Start: 08-03-2018 End: 08-04-2018 Patient encounter procedure SHARLA HICKS Facility:[facility] Procedures Date Procedure Procedure Detail Performing Clinician Start: 04-14-2024 [facility] UA (CLEAN/CATCH) PUBLIC HEALTH NUTRITIONIST/MICRO IF IND. Camacho Hernandez DO Work Phone: Start: 04-06-2024 RECURRENT VAGINITIS (HTRX) Kim QUICK [...] Start: 10-07-2023 Diagnostic radiograp hy of abdomen [employer] K[employer]-C Nataly Spasic Work Phone: Start: 10-07-2023 Ultrasonography of liver [employer] K[employer] Nataly Spasic Work Phone: Start: 10-07-2023 US scan of thyroid [employer]HOU[employer] K[employer]C Nataly Spasic Work Phone: Start: 09-26-2023 CT of lumbar spine w ithout contrast [employer]SE K[employer]PER-C Nataly Spasic Work Phone: Start: 09-26-2023 Urine culture [employer]INGHOUSE KEEPER-C Andrez a Spasic Work Phone: Start: 02-13-2023 Urine culture PHYSICIAN NO FAMILY Start: 02-01-2023 Urine culture [employer]INGHOUSE KEEPER-C Andrez a Spasic Work Phone: Start: 01-05-2023 Streptococcus agalac tiae culture [employer]SE K[employer] Nataly Spasic Work Phone: Start: 12-01-2022 Plain chest X-ray [employer] K[employer] Nataly Spasic Work Phone: Start: 12-01-2022 Respiratory Panel (PCR) [employer] K[employer]C Nataly Spasic Work Phone: Start: 11-20-2022 Ultrasound scan - obstetric [employer] K[employer]C Nataly Spasic Work Phone: Start: 06-04-2022 US scan of gallbladder [employer] Nataly Spasic Work Phone: Start: 08-03-2018 Anes integ extremiti es ant trunk & perineum nos AREN D PITT Start: 08-03-2018 Repair nail bed SHARLA Brian CLARK SARS Antigen (LFIA) DO Luis Enrique Oneil Work Phone: Streptococcus agalac tiae culture DO Obdulia Oneil Work Phone: Plan of Treatment Date Care Activity Detail Author Start: 04-13-2025 Adult BMI Screening Adult BMI Screen ing [facility] Start: 04-13-2025 Tobacco Screening Tobacco Screening [facility] Start: 04-13-2025 End: 04-13-2025 US MFM with or without consult US MFM with or without consult Imaging Routine History of delivery, currently Expected: 04/13/2025 (Approximate), Expires: 04/13/2025 [facility] Work Phone: Comment on above: Expected: 04/13/2025 (Approximate), Expires: 04/13/2025 Start: 05-09-2024 End: 05-09-2024 Patient encounter procedure 05/09/2024 11:15 AM EDT Appointment [facility] - Ultrasound [address] [place] [id number] [facility] - Ultrasound Start: 05-04-2024 End: 05-04-2024 Patient encounter procedure 05/04/2024 11:10 AM EDT Office Visit [facility] [address] [place] [place] [id number] Camacho Hernandez, DO [address] [place] [address] [facility] Start: 05-02-2024 End: 05-02-2024 Patient encounter procedure 05/02/2024 9:15 AM EDT Appointment [facility] - Ultrasound [address] [place] [id number] [facility] - Ultrasound Start: 04-13-2024 End: 04-13-2024 Patient encounter procedure [facility] - MFM US Imaging Start: 04-06-2024 End: 04-06-2025 US Pelvis transvaginal US OB transvaginal Imaging Routine History of delivery, currently Expected: 04/06/2024, Expires: 04/06/2025 [facility] Comment on above: Expected: 04/06/2024 , Expires: 04/06/2025 Start: 04-06-2024 End: 04-06-2024 Patient encounter procedure [facility] Comment on above: Arrived Start: 03-09-2024 End: 05-07-2024 Alpha fetoprotein, maternal Alpha fetoprotein, maternal Lab Routine Second trimester 16 weeks gestation of Expected: 03/09/2024 (Approximate), Expires: 05/07/2024 [facility] Work Phone: Comment on above: Expected: 03/09/2024 (Approximate), Expires: 05/07/2024 Start: 03-09-2024 End: 03-09-2025 Measurement of glucose 1 hour after glucose challenge for glucose tolerance test Glucose tolerance, 1 hour Lab Routine History of delivery, currently History of gestational diabetes Expected: 03/09/2024 (Approximate), Expires: 03/09/2025 [facility] Comment on above: Expected: 03/09/2024 (Approximate), Expires: 03/09/2025 Start: 03-09-2024 End: 03-09-2025 US Pelvis transvaginal US OB transvaginal Imaging Routine History of delivery, currently Expected: 03/09/2024, Expires: 03/09/2025 [facility] Comment on above: Expected: 03/09/2024 , Expires: 03/09/2025 Start: 03-09-2024 End: 03-09-2024 Patient encounter procedure [facility] Comment on above: Arrived Start: 02-03-2024 End: 02-02-2025 ABO/Rh ABO/Rh Lab Routine Missed menses , unspecified gestational age Expected: 02/03/2024 (Approximate), Expires: 02/02/2025 [facility] Comment on above: Expected: 02/03/2024 (Approximate), Expires: 02/02/2025 Start: 02-03-2024 End: 02-02-2025 Blood type and Indirect antibody screen panel - Blood Type and screen Lab Routine Missed menses , unspecified gestational age Expected: 02/03/2024 (Approximate), Expires: 02/02/2025 [facility] Work Phone: Comment on above: Expected: 02/03/2024 (Approximate), Expires: 02/02/2025 Start: 02-03-2024 End: 02-02-2025 Drugs of abuse panel - Urine by Screen method Rapid drug screen, urine Lab Routine , unspecified gestational age Encounter for supervision of normal first in first trimester Expected: 02/03/2024 (Approximate), Expires: 02/02/2025 [facility] Comment on above: Expected: 02/03/2024 (Approximate), Expires: 02/02/2025 Start: 02-03-2024 End: 02-02-2025 US Pelvis transvaginal US OB transvaginal Imaging Routine Missed menses Expected: 02/03/2024 (Approximate), Expires: 02/02/2025 [facility] Comment on above: Expected: 02/03/2024 (Approximate), Expires: 02/02/2025 Start: 10-17-2023 Influenza vaccination [facility] Start: 09-26-2023 CT Lumbar spine WO contrast [facility] Start: 09-26-2023 CT of lumbar spine w ithout contrast CT lumbar spine wo con [facility] Start: 09-26-2023 Bacteria identified in Urine by Culture [facility] Start: 08-20-2023 [facility] Start: 02-14-2023 [facility] Start: 02-13-2023 End: 02-13-2023 [facility] Start: 02-13-2023 Bacteria identified in Urine by Culture [facility] Start: 02-13-2023 Delivery of Products of Conception, External Approach Delivery of Products of Conception, External Approach [facility] Start: 02-13-2023 Drainage of Amniotic Fluid, Therapeutic from Products of Conception, Via Natural or Artificial Opening Drainage of Amniotic Fluid, Therapeutic from Products of Conception, Via Natural or Artificial Opening [facility] Start: 02-13-2023 Hospital admission [facility] Start: 02-13-2023 Hospital admission [facility] Start: 02-13-2023 End: 02-13-2023 [facility] Start: 02-01-2023 [facility] Start: 02-01-2023 Hospital admission [facility] Start: 02-01-2023 Bacteria identified in Urine by Culture [facility] Start: 01-31-2023 [facility] Start: 01-30-2023 Hospital admission [facility] Start: 01-22-2023 [facility] Start: 01-21-2023 [facility] Start: 01-05-2023 Group B Streptococcu s Culture Group B Streptococcus Culture [facility] Start: 12-01-2022 Respiratory Panel (PCR) Respiratory Panel (PCR) [facility] Start: 11-21-2022 [facility] Start: 11-20-2022 [facility] Start: 11-20-2022 Hospital admission [facility] Start: 11-19-2022 [facility] Start: 11-19-2022 Hospital admission [facility] Start: 11-19-2022 [facility] Start: 10-18-2021 End: 10-18-2021 [facility] Work Phone: Start: 10-18-2021 Hospital admission [facility] Work Phone: Start: 2020 Screening for malign ant neoplasm of cervix Pap Smear [facility] Start: 02-16-2020 DTaP,Tdap and Td Vac cines (2 - Td or Tdap) DTaP,Tdap and Td Vaccines (2 - Td or Tdap) [facility] Start: 2017 Adult BMI Follow Up Plan Adult BMI Follow Up Plan [facility] Start: 2017 Adult BMI Screening Adult BMI Screen ing [facility] Start: 2011 Depression Screening Depression Scre ening [facility] Start: 2011 Tobacco Screening Tobacco Screening [facility] Bacteria identified in Urine by Culture [facility] Bacteria identified in Urine by Culture Urine culture Microbiology Routine Missed menses Ordered: 02/03/2024 [facility] Comment on above: Ordered: 02/03/2024 CBC W Auto Different ial panel - Blood CBC and differential Lab Routine Missed menses , unspecified gestational age Ordered: 02/03/2024 [facility] Comment on above: Ordered: 02/03/2024 CHLAMYDIA TRACHOMATI S (GENITO/STI) CHLAMYDIA TRACHOMATIS (GENITO/STI) Lab Routine STD exposure Vaginal discharge Ordered: 04/06/2024 [facility] Comment on above: Ordered: 04/06/2024 Cytology Cervical or vaginal smear or scraping study Pap Smear Pathology and Cytology Routine Well woman exam with routine gynecological exam Ordered: 04/06/2024 [facility] Comment on above: Ordered: 04/06/2024 Glucose measurement estimated from glycated hemoglobin [facility] Hemoglobin A1c/Hemoglobin.total in Blood [facility] Hemoglobin A1c/Hemoglobin.total in Blood Hemoglobin A1c Lab Routine Missed menses , unspecified gestational age Ordered: 02/03/2024 [facility] Comment on above: Ordered: 02/03/2024 Hepatitis B virus almeida rface Ag [Presence] in Serum or Plasma by Immunoassay Hepatitis B surface antigen Lab Routine Missed menses , unspecified gestational age Ordered: 02/03/2024 [facility] Comment on above: Ordered: 02/03/2024 Hepatitis C virus Ab [Presence] in Serum or Plasma by Immunoassay Hepatitis C antibody Lab Routine Missed menses , unspecified gestational age Ordered: 02/03/2024 [facility] Comment on above: Ordered: 02/03/2024 HIV-1/HIV-2 antigen/antibody combination immunoassay HIV-1 and HIV-2 antibodies Lab Routine Missed menses , unspecified gestational age Ordered: 02/03/2024 [facility] Comment on above: Ordered: 02/03/2024 Insulin [Units/volum e] in Serum or Plasma [facility] Insulin [Units/volum e] in Serum or Plasma [facility] Insulin [Units/volum e] in Serum or Plasma [facility] Neisseria gonorrhoea e DNA [Presence] in Unspecified specimen by SVETLANA with probe detection Neisseria gonorrhea DNA probe, direct Lab Routine STD exposure Vaginal discharge Ordered: 04/06/2024 [facility] Comment on above: Ordered: 04/06/[address] [facility] Work Phone: Patient referral [facility] Work Phone: Reagin Ab [Presence] in Serum by RPR [facility] Work Phone: Reagin Ab [Presence] in Serum by RPR [facility] Reagin Ab [Presence] in Serum by RPR RPR Lab Routine Missed menses , unspecified gestational age Ordered: 02/03/2024 [facility] Comment on above: Ordered: 02/03/2024 Respiratory pathogen s DNA and RNA panel - Nasopharynx by SVETLANA with non-probe detection [facility] Rubella antibody, IgG Rubella an tibody, IgG Lab Routine Missed menses , unspecified gestational age Ordered: 02/03/2024 [facility] Comment on above: Ordered: 02/03/2024 Streptococcus agalac tiae [Presence] in Unspecified specimen by Organism specific culture [facility] SURESWAB(R) ADVANCED VAGINITIS PLUS, TMA SUREAB(R) ADVANCED VAGINITIS PLUS, TMA Pathology and Cytology Routine STD exposure Vaginal discharge Ordered: 04/06/2024 [facility] Work Phone: Comment on above: Ordered: 04/06/2024 Thyroperoxidase Ab [Units/volume] in Serum or Plasma [facility] Thyrotropin [Units/v olume] in Serum or Plasma [facility] Thyrotropin [Units/v olume] in Serum or Plasma TSH Lab Routine , unspecified gestational age Encounter for supervision of normal first in first trimester Ordered: 02/03/2024 [facility] Comment on above: Ordered: 02/03/2024 Thyroxine (T4) free index in Serum or Plasma by calculation [facility] Thyroxine measurement [facility] Triiodothyronine (T3 ) [Mass/volume] in Serum or Plasma [facility] Triiodothyronine res in uptake (T3RU) in Serum or [facility] Immunizations Immunization Date Immunization Notes Care Provider Arcadio galicia 04-09-2023 influenza virus vaccine, unspecified formulation Nom Nurse [facility] 02-13-2023 tetanus toxoid, reduced diphtheria toxoid, and acellular pertussis vaccine, adsorbed BOARDINGHOUSE KEEPER-C Nataly Toure Work Phone: [facility] 01-10-2021 influenza, injectable, quadrivalent, preservative free DO Obdulia Oneil Work Phone: [facility] 02-15-2010 tetanus toxoid, reduced diphtheria toxoid, and acellular pertussis vaccine, adsorbed Noms Nurse [facility] Work Phone: 12-13-2008 novel [id number], preservative-free, injectable Noms Nurse [facility] 12-13-2008 influenza virus vaccine, unspecified formulation Ni Carroll MD Work Phone: [facility] 07-21-2000 hepatitis B vaccine, pediatric or pediatric/adolescent dosage Noms Nurse [facility] 07-21-2000 measles, mumps and rubella virus vaccine Noms Nurse [facility] 1999 poliovirus vaccine, inactivated Noms Nurse [facility] NEGATED: Highlighted row has not occurred!01-10-2021 tetanus toxoid, reduced diphtheria toxoid, and acellular pertussis vaccine, adsorbed DO Obdulia Oneil Work Phone: [facility] Payers Date Payer Category Payer Self-pay [id number] 2021 Medicaid (Managed Care) [facility] MEDICAID [id number] 1999 Unknown [id number] .16.840.1.812076.3.579.2. 647 1999 Unknown [id number] 2.16.840.1.726242.3.579.2. 593 1999 Unknown [id number] 2.16.840.1.470712.3.579.2. 593 1999 Unknown [id number] 2.16.840.1.296651.3.579.2. 593 1999 Unknown [id number] 2.16.840.1.073407.3.579.2. 593 1999 Unknown [id number] 2.16.840.1.744088.3.579.2. 593 1999 Unknown [id number] 2.16.840.1.993554.3.579.2. 1259 1999 Unknown [id number] 2.16.840.1.429221.3.579.2. 1259 1999 Unknown [id number] 2.16.840.1.938532.3.579.2. 1259 1999 Unknown [id number] 2.16.840.1.779612.3.579.2. 1259 1999 Unknown [id number] 2.16.840.1.655766.3.579.2. 1259 1999 Unknown [id number] 2.16.840.1.045852.3.579.2. 1259 1999 Unknown [id number] 2.16.840.1.862959.3.579.2. 1286 1999 Unknown [id number] 2.16.840.1.104035.3.579.2. 1286 1994 Medicaid HMO [id number]. [id number] 1959 Private Health Insurance [id number] 1959 Unknown [id number] Unknown [employer] BC/BS [id number] Unknown [id number] 2.16.840.1.311422.3.579.2. 531 Unknown [id number] 2.16.840.1.698629.3.579.2. 531 Unknown [id number] 2.16.840.1.576215.3.579.2. 531 Unknown [id number] 2.16.840.1.938224.3.579.2. 531 Unknown [id number] 2.16.840.1.612979.3.579.2. 531 Unknown [id number] 2.16.840.1.785830.3.579.2. 531 Unknown [id number] 2.16.840.1.054416.3.579.2. 531 Unknown [id number] 2.16.840.1.754145.3.579.2. 531 Unknown [id number] 2.16840.1.315139.3.579.2. 531 Unknown [id number] 2.16.840.1.620564.3.579.2. 531 Unknown [id number] 2.16.840.1.000325.3.579.2. 531 Unknown [id number] 2.16.840.1.773640.3.579.2. 531 Unknown [id number] 2.16840.1.053740.3.579.2. 531 Unknown [id number] 2.16840.1.738608.3.579.2. 531 Unknown [id number] 2.16840.1.900527.3.579.2. 531 Unknown [id number] 2.16840.1.553994.3.579.2. 531 Unknown [id number] 2.16840.1.560995.3.579.2. 531 Social History Date Type Detail Facility Start: 10-18-2021 End: 07-28-2022 Tobacco smoking status AZIS Never smoked tobacco (finding) [facility] Start: 2000 Sex Assigned At Female [facility] Start: 07-28-2022 End: 03-17-2024 Tobacco use and exposure Smokeless tobacco non-user [facility] Start: 02-03-2024 End: 04-13-2024 Alcoholic beverage intake Ex-drinker (finding) [facility] Start: 02-12-2023 End: 05-05-2023 History of [address] function [facility] Start: 02-12-2023 End: 05-05-[address] [facility] Start: 08-24-2022 Education 16 [facility] Start: 08-24-2022 Alcohol Comment none with preg sascha, Caffeine intake: none [facility] Start: 12-01-2023 [facility] Start: 2000 Sex assigned at Not on file [facility] Start: 04-29-2022 Gender identity Identifies as female gender (finding) [facility] Childcare Unknown [facility] Start: 09-20-2014 Sex Female (finding) [facility] NEGATED: Highlighted row [facility] Goals Date Patient Goal Desired Activity /State Personal health goal Functional Status Date Assessment Result Facility 02-13-2023 Functional status Patient Not at Baseline [facility] Work Phone: Mental Status Date Assessment Result Facility 02-13-2023 Cognitive function Cognitive Sta tus Patient Not at Baseline [facility] Work Phone: Clinical Notes 10-18-2021 to 04-13-2024 [...] Yes Have you been seen here at [facility] in a previous ? No Recent ER visits or hospitalizations? No Bring blood sugar log or meter with you today? (Please bring them with you for every visit at [facility]) N/A Flu vaccine (Dec-April)? Yes Any concerns that you would like me to mention to the provider today? No REASON FOR CONSULTATION: Previa ruled out. HISTORY OF PRESENT ILLNESS: Rosette Alba is a pleasant 24 y.o. G [id number]. at 20w4d due on Estimated Date of [...] and the other consultants, we search on [employer] and all the available care everywhere epic I did review all the imaging studies of the patient available on EMR, ordered by the primary care physician and the other communications consultant HABITS: Patient activity no restrictions, diet [...] 22 weeks and 23 weeks gestation at [facility] office. 2. InCase of short cervical length less than 25 mm patient will be a candidate for cerclage which will be performed through the [facility] office. 3. Placenta previa has resolved. 4. Routine care OB provider. DISPOSITION: At this point the patient is in complete care of her project management specialist. Patient does have ultrasound scheduled with us Thank you for allowing me to participate in Rosette Alba . If there any questions please do not hesitate to contact us. Sincerely, NI CARROLL MD documented in this encounter [employer] 04-06-2024 History of Present illness Narrative Reason [...] nursing note reviewed. Exam conducted with a car repairer apprentice present. Vitals: Estimated body mass index is [...] direct 6. History of delivery, currently O09.899 OB transvaginal Return OB/Annual Exam: Patient presents [...] of: YNES Xiong documented in this encounter [facility] 03-09-2024 History of Present illness Narrative Reason [...] nursing note reviewed. Exam conducted with a car repairer apprentice present. Vitals: Estimated body mass index is [...] or undercooked meat, and stay away from [facility]. Patient has been consulted regarding any further do's and don'ts of . Patient voiced understanding and all questions and concerns were answered. Discussed vaginal progesterone with patient and that medication will be stopped at 36 weeks gestation, and Celestone will be given at 32 weeks. Patient given early 1 hour gtt and MSAFP. Vaginal suppositories sent to [place]. PVU Orders Placed This Encounter Procedures US OB transvaginal Alpha fetoprotein, maternal Glucose tolerance, 1 hour POCT urinalysis dipstick manually resulted Follow Up: Patient is to return in 4 weeks for routine OB appointment. Documented by Ce Curry LPN on behalf of: Camacho Hernandez DO documented in this encounter [facility] 02-03-2024 History of Present illness Narrative Reason [...] or undercooked meat, and stay away from [facility]. Patient has also been advised to [...] Danay Velasquez MA documented in this encounter [facility] 02-13-2023 Procedure note [facility] 10-18-2021 History and physical note Note Date/Time October 18, 2021 1:40am [facility] [address] [place] [address] INSTRUMENTATION INSTRUCTOR History & Physical Signed Patient: Rosette Alba MR#: [id number] : 2000 Acct:[id number] Age/Sex: 21 / F Adm Date: 2 Loc: 3E Room: 4V8955-4 Type: ADM IN Attending Dr: Jennie Smith MD Copies to: Jennie Smith MD-[facility] Obdulia Oneil DO~ Date of Service: 10/18/2021 Review of Systems Review of Systems All other systems reviewed & are negative unless noted below or in HPI OB [facility] Medical History (Updated 10/18/21 @ 01:30 by Jennie Smith MD) Anxiety Depression Thyroid disease No meds at present time. UTI (urinary tract infection) Surgical History (Updated 01/08/21 @ 21:48 by Marie Wynn RN) History of placement of ear tubes INSTRUMENTATION INSTRUCTOR Hx : 5 : 4 Livin EDC [...] % (Auto) 73.3, Lymph % (Auto) 17.0, Knott % (Auto) 8.1, Eos % (Auto) 1.3, Baso % (Auto) 0.3, Neut # (Auto) 7.4, Lymph # (Auto) 1.7, Knott # (Auto) 0.8, Eos # (Auto) 0.1, Baso # (Auto) 0.0, Nucleated RBC % (auto) 0.1 10/18/21 00:27: Urine Color Yellow, Urine Appearance Cloudy A, Urine pH 6.5, Ur Specific Gardner 1.020, Urine Protein Trace H, Urine Glucose [...] by TELMA Smith> 10/18/21 0141 [facility] Work Phone: 1(196) 962-707509-03-2022 [facility] Diagnosis Onset Date Resolution Status [address] [facility] Work Phone: [phone] [employer] Mobilealuation noteNo assessment information available [facility] Work Phone: evZonesation note* Diagnosis Onset Date Resolution Status [address] [facility] Work Phone: Evaluation note* Diagnosis Onset Date Resolution Status Iron deficiency anemia [facility] Work Phone: evaluation note* Diagnosis Missed menses , unspecified gestational age Encounter for supervision of normal first in first trimester [facility] Diagnosis Second trimester state, incidental 16 weeks gestation of History of delivery, currently with history of pre-term labor Diabetes mellitus screening Screening for diabetes mellitus History of gestational diabetes Personal history of other genital system and obstetric disorders [facility] Diagnosis Second trimester - Primary state, incidental 20 weeks gestation of STD exposure Well woman exam with routine gynecological exam Routine gynecological examination Vaginal discharge Leukorrhea, not specified as infective History of delivery, currently with history of pre-term labor URI, acute Acute upper respiratory infections of unspecified site [facility] Diagnosis History of delivery, currently - Primary with history of pre-term labor [facility] Diagnosis delivery after section- Primary [facility] Additional Instructions You have a respiratory panel is pending you will be called with any positive results Push fluids Humidifier may be beneficial Tylenol only for your discomfort Follow-up with your PCP and your INSTRUMENTATION INSTRUCTOR call tomorrow for appointment Salt water gargles to soothe your throat Handwashing Rest Return here if any problems persist or worsen including abdominal pain, vaginal bleeding, increased pain, dyspnea or any other [facility] Work Phone: InstructionsNot on filedocumented in this encounter [facility]ructionsNot on filedocumented in this encounter [facility] SystemInstructionsNot on filedocumented in this encounter [facility] Summary Purpose Family History No Family [...] section and content) DATE CREATED AUTHOR 10/16/2018 [facility] DATE CREATED AUTHOR AUTHOR'S ORGANIZ ATION 07/24/2022 [facility] DATE CREATED AUTHOR AUTHOR'S ORGANIZ ATION 12/17/2023 [facility] DATE CREATED AUTHOR AUTHOR'S ORGANIZ ATION 03/22/2024 [facility] DATE CREATED AUTHOR AUTHOR'S ORGANIZ ATION 04/08/2024 [facility] DATE CREATED AUTHOR AUTHOR'S ORGANIZ ATION 04/15/2024 [facility] Care Teams (unrecognized sec tion and content) Team Status: Inactive Member Role Status Dates Obdulia Oneil DO Primary Care Provider Active Jennie Smith MD Admit Provider, Attending Provider Active Team Status: Inactive Member Role Status Allison Oneil DO Primary Care Provider Active Radha Molina DO Attending Provider Active Team Status: Active Member Role Status Allison Oneil DO Primary Care Provider Active Team Status: Inactive Member Role Status Dates Nataly Toure , BOARDINGHOUSE KEEPER-C Attending Provider Active Team Status: Active Member Role Status Dates Nataly E Shayleesic , BOARDINGHOUSE KEEPER-C Primary Care Provider Active Team Status: Inactive Member Role Status Dates Nataly E Spasic , BOARDINGHOUSE KEEPER-C Primary Care Provider, Attending Provider Active Team Status: Inactive Member Role Status Dates Nataly E Spasic , BOARDINGHOUSE KEEPER-C Primary Care Provider Active Marcello Hudson DO Attending Provider Active Team Status: Inactive Member Role Status Dates Nataly E Spasic , BOARDINGHOUSE KEEPER-C Primary Care Provider Active Mary Kay Cantu DO Attending Provider Active Team Status: Inactive Member Role Status Dates Nataly E Shayelesic , BOARDINGHOUSE KEEPER-C Primary Care Provider Active Jennie Smith MD Attending Provider Active Team Status: Inactive Member Role Status Dates Nataly E Shayleesic , BOARDINGHOUSE KEEPER-C Primary Care Provider Active Staci Ortiz APRN Emergency Provider Active Team Status: Inactive Member Role Status Dates Nataly Brian Jerniganc , BOARDINGHOUSE KEEPER-C Attending Provider Active Services [facility] Primary Care Provider Ac tive Team Status: Inactive Member Role Status Allison Molina DO Attending Provider Active Team Status: Active Member Role Status Dates PHYSICIAN NO FAMILY Primary Care Provider Active Team Status: Inactive Member Role Status Dates Radha Molina DO Attending Provider Active PHYSICIAN NO FAMILY Primary Care Provider Active Team Status: Inactive Member Role Status Allison Maguirea Brian Jerniganc , BOARDINGHOUSE KEEPER-C Primary Care Provider Active Radha Molina DO Attending Provider Active Team Status: Inactive Member Role Status Dates Nataly E Shayleesic , BOARDINGHOUSE KEEPER-C Primary Care Provider Active Ede Way MD Admit Provider, Attending Provider A ctive Team Status: Inactive Member Role Status Allison Molina DO Attending Provider Active S tart: December 08, 2022 End: December 08, 2022 Team Status: Inactive Member Role Status Allison Molina DO Attending Provider Active S tart: December 22, 2022 End: December 22, 2022 PHYSICIAN NO FAMILY Primary Care Provider Active Start: December 22, 2022 End: December 22, 2022 Team Status: Inactive Member Role Status Dates Radha Molina DO Attending Provider Active S tart: January 05, 2023 End: January 05, 2023 Team Status: Inactive Member Role Status Dates Nataly Toure , BOARDINGHOUSE KEEPER-C Primary Care Provider Active Start: January 21, 2023 End: January 21, 2023 Radha Molina DO Attending Provider Active S tart: January 21, 2023 End: January 21, 2023 Team Status: Inactive Member Role Status Dates Nataly Toure , BOARDINGHOUSE KEEPER-C Primary Care Provider Active Start: January 22, 2023 End: January 22, 2023 Radha Molina DO Attending Provider Active S tart: January 22, 2023 End: January 22, 2023 Team Status: Inactive Member Role Status Dates Nataly Toure , BOARDINGHOUSE KEEPER-C Primary Care Provider Active Start: January 30, 2023 End: January 31, 2023 Mary Kay Cantu DO Attending Provider Active Start: January 30, 2023 End: January 31, 2023 Team Status: Inactive Member Role Status Dates Nataly Toure , BOARDINGHOUSE KEEPER-C Primary Care Provider Active Start: February 01, 2023 End: February 01, 2023 Radha Molina DO Attending Provider Active S tart: February 01, 2023 End: February 01, 2023 Team Status: Inactive Member Role Status Dates Nataly Toure , [employer] Primary Care Provider Active Start: February 13, 2023 End: February 13, [address] MD Admit Provider, Atte nding Provider Active Start: February 13, 2023 End: February 13, 2023 Team Status: Inactive Member Role Status Dates Nataly Toure , [employer] Attending Provider Active Start: March 04, 2023 End: March 04, 2023 Team Status: Active Member Role Status Dates Services [facility] Primary Care Provider Ac tive Team Status: Inactive Member Role Status Dates Nataly Toure , [employer] Attending Provider Active Start: March 17, 2023 End: March 17, 2023 Services [facility] Primary Care Provider Ac tive Start: March 17, 2023 End: March 17, 2023 Team Status: Inactive Member Role Status Dates Nataly Toure , [employer] Attending Provider Active Start: August 03, 2023 End: August 03, 2023 Team Status: Inactive Member Role Status Dates Nataly Toure , [employer] Primary Care Provider Active Start: August 20, 2023 End: August 21, 2023 Carmelo Vinson DO Emergency Provider Active St art: August 20, 2023 End: August 21, 2023 Team Status: Inactive Member Role Status Dates Nataly Toure , [employer] Primary Care Provider Active Start: September 26, 2023 End: September 27, 2023 JUAN MANUEL HensleyC Emergency Provider Active Start: September 26, 2023 End: September 27, 2023 Team Status: Inactive Member Role Status Dates Nataly Toure , [employer] Primary Care Provi emmanuel, Attending Provider Active Start: September 30, 2023 End: September 30, 2023 Team Status: Inactive Member Role Status Dates Nataly Toure , [employer] Primary Care Provider Active Start: October 04, 2023 End: October 05, 2023 Carmelo Vinson DO Emergency Provider Active St art: October 04, 2023 End: October 05, 2023 Team Status: Inactive Member Role Status Dates Nataly Toure , [employer] Primary Care Provi emmanuel, Attending Provider Active Start: October 07, 2023 End: October 07, 2023 Team Status: Inactive Member Role Status Dates Nataly Jerniganc , [employer] Primary Care Provi emmanuel, Referring Provider Active Start: October 20, 2023 End: October 20, 2023 Melania Arceo APRN Attending Provider Active Start: October End: October 20, 2023 Team Status: Active Member Role Status Dates Nataly Toure , [employer] Primary Care Provi emmanuel, Referring Provider Active Start: October 20, 2023 Melania Arceo APRN Attending Provider Active Start: October [employer] Relationship Specialty Start Date End Date Unallocated, MD [place] [address] PCP - General 06/29/22 [employer] Relationship Specialty Start Date End Date Unallocated, [place] [address] PCP - General 06/29/22 [employer] Relationship Specialty Start Date End Date Unallocated, Jonny Chapa MD [address] [place] [id number] PCP - General 06/29/22 [employer] Relationship Specialty Start Date End Date Unallocated, Jonny Chapa MD [facility] [place] [address] PCP - General 06/29/22 [employer] Relationship Specialty Start Date End Date Tai Chapman MD [address] [place] [id number] PCP - General Family Medicine 02/24/18 [employer] Relationship Specialty Start Date End Date Unallocated, Jonny Chapa MD [facility] [place] [address] PCP - General 06/29/22 [employer] Relationship Specialty Start Date End Date Unallocated, Jonny Chapa MD [address] [place] [id number] PCP - General 06/29/22 [employer] Relationship Specialty Start Date End Date Unallocated, Jonny Chapa MD [facility] [place] [address] PCP - General 06/29/22 [employer] Relationship Specialty Start Date End Date Tai Chapman MD [address] [place] [id number] PCP - General Family Medicine 02/24/18 [employer] Relationship Specialty Start Date End Date Tai Chapman MD [address] [place] [id number] PCP - General Family Medicine 02/24/18 Goals [...] BE BASED ON THE PRIMARY CLINICAL RECORDS. [employer] provides no warranty or guarantee of the accuracy or completeness of information in this document.
[2024-04-28 20:49] LABS: Bilirubin Urine NEGATIVE (NEGATIVE); Blood Urine TRACE-I (NEGATIVE); Color Urine LT. YELLOW (YELLOW); Glucose Urine UA NEGATIVE (NEGATIVE); Ketones Urine TRACE mg/dL (NEGATIVE); Leukocyte Esterase Urine SMALL (NEGATIVE); Nitrite Urine NEGATIVE (NEGATIVE); Protein Urine TRACE mg/dL (NEG/TRACE); Specific Gravity Urine 1.025 (1.005-1.025)
[2024-04-28 20:50] VITALS: BP 134/58; PULSE 114
[2024-04-28 20:54] LABS: Clarity Urine SLIGHTLY CLOUDY (CLEAR); Urine Microscopic Indicated YES
[2024-04-28 20:57] LABS: Bacteria Urine LARGE #/HPF (NONE SEEN); Cast Seen? NONE SEEN #/LPF (NONE SEEN); Crystals Seen? None Seen #/HPF (None Seen); Mucus Urine SMALL (NONE SEEN); RBC Urine 0-2 #/HPF (0-2); Squamous Epithelial Cell Urine MANY #/LPF (NONE/RARE)
[2024-04-28 20:58] LABS: Urine Culture Indicated YES-LC
[2024-04-28] MEDS: CEFAZOLIN SODIUM/DEXTROSE,ISO 2 GM/50 ML PIGGYBACK IV (21:30)
[2024-04-28] MEDS: 0.9 % SODIUM CHLORIDE 1,000 ML 999 ML IV (21:30)
== END 2024-04-28 22:55 | disposition home or self-care (01) ==
PROVIDERS: Admitting Provider Obstetrics & Gynecology Gynecology; PCP Family Medicine; Visit Provider Obstetrics & Gynecology Gynecology
DX: O99.891 Other specified diseases and conditions complicating pregnancy (principal); N89.8 Other specified noninflammatory disorders of vagina; R10.9 Unspecified abdominal pain; Z3A.00 Weeks of gestation of pregnancy not specified
CPT/HCPCS: 81001; 87086; 96374; G0378; G0379; J0690

== ENCOUNTER 2024-04-30 15:02 | Observation (INO) | payer OTHER, SELFPAY ==
--- OUTSIDE RECORDS SUMMARY | 2024-04-30 15:09 | XMS_ITS | CCD ---
Author Organization [facility] Care Team Providers Care Building Cleaner Name Role Phone EBWANDA, SHARLA Admitting Unavailable EBWANDA SHARLA Attending Unavailable OBDULIA ONEIL Referring Unavailable OBDULIA ONEIL Primary Care Unavailable ME Procedure Practitioner Unavailab SHARLA Singh Surgeon Unavailable ME Procedure Practitioner Unavailab AREN Ferguson Surgeon Unavailable DO Obdulia Oneil Primary Care Provider [phone] DO Radha Molina Attending Provider [phone] MD Jennie Smith Admit Provider [phone] MD Jennie Smith Attending Provider [phone] Spasic, ASSOCIATE DIRECTOR REGULATORY AFFAIRS-C Nataly Torres Attending Provider Spasic, ASSOCIATE DIRECTOR REGULATORY AFFAIRS-C Nataly Torres Primary Care Provider DO Marcello Hudson Attending Provider [phone] CORRINA DHALIWAL Attending Unavailable CORRINA DHALIWAL Consulting Unavailable REQUEST, NONE LISTED Primary Care Unavaila CORRINA Cuevas Admitting Unavailable FINA ., YNES MENDENHALL Consulting Unavailjanie JOHNSON ., DR SIMENTAL Admitting Unavailable REQUEST, NONE LISTED Primary Care Unavaila ramona JOHNSON ., DR SIMENTAL Attending Unavailable HAY ., DR SIMENTAL Consulting Unavailable PETRA SALICDO Consulting Unavailable MARKER ., DR DOLL Admitting [...] NONE LISTED Primary Care Unavaila ble Spasic, ASSOCIATE DIRECTOR REGULATORY AFFAIRS-C Nataly E Primary Care Provider [phone] DO Mary Kay Cantu Attending Provider MD Jennie Smith Attending Provider CADE Ortiz Emergency Provider Spasic, ASSOCIATE DIRECTOR REGULATORY AFFAIRS-C Nataly E Attending Provider [facility] Primary Care Prov ider DO Radha Molina Attending Provider Spasic, ASSOCIATE DIRECTOR REGULATORY AFFAIRS-C Nataly E Primary Care Provider DO Mary Kay Cantu Attending Provider MD Jennie Smith Attending Provider CADE Ortiz Emergency Provider Spasic, ASSOCIATE DIRECTOR REGULATORY AFFAIRS-C Nataly E Attending Provider [facility] Primary Care Prov ider DO Radha Molina Attending Provider NO FAMILY, PHYSICIAN Primary Care Provider Unava ilable MD Ede Way Admit Provider MD Ede Way Attending Provider Spasic, ASSOCIATE DIRECTOR REGULATORY AFFAIRS-C Nataly E Primary Care Provider DO Mary Kay Cantu Attending Provider Spasic, ASSOCIATE DIRECTOR REGULATORY AFFAIRS-C Nataly E Attending Provider DO Radha Molina Attending Provider [facility] Primary Care Prov ider Spasic, ASSOCIATE DIRECTOR REGULATORY AFFAIRS-C Nataly E Attending Provider Spasic, ASSOCIATE DIRECTOR REGULATORY AFFAIRS-C Nataly E Primary Care Provider DO Carmelo Vinson Emergency Provider RANDALL Leon Emergency Provider Spasic, ASSOCIATE DIRECTOR REGULATORY AFFAIRS-C Nataly E Referring Provider CADE Arceo Racheal [...] Attending Unavailable Spasic, Nataly E Admitting Unavailable [facility] Primary Care U navailable Spasic, Nataly [...] emmanuel Tai Chapman MD Primary Care Provider [phone] CAMACHO HERNANDEZ Attending Unavailable KIM HAMILTON Attending Unavailable RADHA MOLINA Attending Unavailable RADHA MOLINA Referring Unavailable EDE WAY Referring Unavailable RADHA MOLINA Attending Unavailable RADHA MOLINA Referring Unavailable NI CARROLL Attending Unavailable CAMACHO HERNANDEZ Referring Unavailable TAI CHAPMAN Primary Care Unavailable CAMACHO HERNANDEZ Referring Unavailable TIA CHAPMAN Primary Care Unavailable Allergies Allergy Classification Reported Allergen(s) Allergy Type Date of Onset Reaction(s) Facility (1 source) 33220,00 Drug allergy (disorder) 07-01-2012 [facility] Medications Current Medications Medication Drug Class(es) [...] take 1 tablet by mouth at me[facility] hi ferrous sulfate 325 (65 Fe) MG tablet [...] Start: 03-18-2023 take 1 capsule by mo [facility] once daily at mealtime venlafaxine XR (Effexor XR) 75 MG 24 hr capsule TAKE 1 CAPSULE BY MOUTH ONCE DAILY WITH FOOD 03/18/2023 Active Start: 06-23-2022 End: 11-19-2022 take 37.5 mg by mouth once daily at bedtime Venlafaxine Discontinued 37.5 MG PO Daily at bedtime June 23, 2022 12:00am November 19, 2022 12:21pm take 1 capsule by [facility] every twenty-four hours in the morning venlafaxine [...] by mouth every four hours Hydrocodone-Acetam inophen ([place]) 5-325 mg tablet Discontinued 2 TAB PO [...] 20, 2017 1:01pm 168 hr ethinyl estradiol 0.70101 mg/hr / norelgestromin 0.84623 mg/hr transdermal system (20 sources) Progestin, Estrogen [...] 20, 2022 12:00am February 13, 2023 7:43pm Tresckow-3 Fatty Acids-Fish Oil (20 sources) Start: 06-23-2022 End: 11-19-2022 take 1 capsule by mouth once daily Tresckow-3 Fatty Acids-Fish Oil Discontinued 1 CAP PO Daily June 22, 2022 11:00pm November 19, 2022 11:22am Start: 06-23-2022 End: 11-19-2022 take 1 capsule by mouth once daily Tresckow-3 Fatty Acids-Fish Oil Discontinued 1 CAP PO Daily June 23, 2022 12:00am November 19, 2022 12:22pm Start: 06-23-2022 take 1 capsule by mo uth once daily Tresckow-3 Fatty Acids-Fish Oil Active 1 CAP PO [...] 07, 2017 12:00am November 12, 2017 12:01am Qydjkrwo-Knc-Yp-Fa () 1 mg Tablet (20 sources) Start: 11-19-2022 End: 02-13-2023 take 1 tablet by mouth once daily Gvzvxspv-Pos-Ul-Fa () 1 mg Tablet Discontinued 1 TAB PO Daily November 19, 2022 12:00am February 13, 2023 7:43pm Start: 11-19-2022 End: 02-13-2023 take 1 tablet by mouth once daily Dlrfhojq-Avq-Ol-Fa () 1 mg Tablet Discontinued 1 TAB PO Daily November 18, 2022 11:00pm February 13, 2023 6:43pm Start: 11-19-2022 take 1 tablet by long th once daily Fskefanp-Npt-Cu-Fa () 1 mg Tablet Active 1 TAB PO Daily November 18, 2022 11:00pm Start: 11-19-2022 take 1 tablet by long th once daily Toxejrnn-Xlq-Er-Fa () 1 mg Tablet Active 1 TAB [...] Test Name Value Interpretation Reference Range Facility [facility] UA (CLEAN/CATCH) VARNISHER PLASTICOATER/ELINOR RO IF IND.on 04-14-2024 BILIRUBIN URINE Negative NEGATIVE [facility] BLOOD URINE Negative NEGATIVE [facility] Clarity (U) CLEAR CLEAR [facility] Healthcare Color (U) LT. YELLOW YELLOW [facility] [...] GDLNon AGE GDLN ACOG TESTING Note . [facility] Comment on above: TESTS RESULT FLAG UN ITS REF RANGE LAB Clinician Provided Cytology Information Source.............Cervix No. of containers..01 ThinPrep Vial Age Algo ACOG Rossana... FLAG LEGEND: L-Low Normal,H-High Normal,LL-Alert Low,HH-Alert High <-Panic Low,>-Panic High,A-Abnormal,AA-Critical Abnormal Performed at: 01 =G [facility] [address] [place] [address] Christina Chan MD, IGP, RFX APTIMA HPV ASCU Note . [facility] Comment on above: TESTS RESULT FLAG UN ITS REF RANGE LAB DIAGNOSIS: 02 NEGATIVE FOR INTRAEPITHELIAL LESION OR MALIGNANCY. Specimen adequacy: 02 Satisfactory for evaluation. No endocervical component is identified. Performed by: Dereje Kaufman, Board Certified Family Physician ([facility]) . 02 Note: Note 02 The Pap [...] <-Panic Low,>-Panic High,A-Abnormal,AA-Critical Abnormal Performed at: [address] [address] Christina Chan MD, Performed at: =[facility] [id number] Cryptologic Supervisor: Christina Chan MD, Phone: [phone] Performed at: [address] [id number] Cryptologic Supervisor: Christina Chan MD, Phone: [phone] SPATULA-ALONE CERVIX [facility] [...] [facility] CHLAMYDIA TRACHOMATIS 0 [facility] CHLAMYDIA TRACHOMATIS Not detected N [facility] GARDNERELLA VAGINALIS 0 [facility] GARDNERELLA VAGINALIS Not detected N [facility] MEGASPHAERA (TYPES 1, 2) 0 [facility] MEGASPHAERA (TYPES 1, 2) Not detected [facility] MYCOPLASMA GENITALIUM 0 [facility] MYCOPLASMA GENITALIUM Not detected N [facility] NEISSERIA GONORRHOEAE 0 [facility] NEISSERIA GONORRHOEAE Not detected N [facility] TRICHOMONAS VAGINALIS 0 [facility] TRICHOMONAS VAGINALIS Not detected N [facility] Urinalysis macro (dipstick) panel (U)on 04-06-2024 Bilirubin, [...] Urobilinogen, UA 1.0 0.2 - 12 mg/dL [facility] ED Note - Physicianon 2024 ED Note - Physician [id number]#1.00OTGTI [facility] Rad - Other Radiology Report on 03-20-2024 Rad - Other Radiology Report [id number]#1.00OTGTI [facility] Rad - Other Radiology Report on 03-14-2024 Rad - Other Radiology Report [id number]#1.00OTGTIF F [facility] US OB CERVICAL LENGTHon 02-16 [place] [address] Ultrasound Report Signed Patient: ROSETTE ALBA MR#: [id number] : 2000 Acct:[id number] Age/Sex: 23 / F ADM Date: 03/14/24 Loc: US Attending Dr: Camacho Hernandez D.O. Ordering Physician: Camacho Hernandez D.O. Date of Service: 03/14/24 Procedure(s): US OB cervical length Accession Number(s): [id number] cc: Camacho Hernandez D.O.; OBDULIA ONEIL [address] [address] Patient Name: ROSETTE ALBA MRN: [id number] date: 2000 Sex: F Assigned Patient Location: US Current Patient Location: US Accession/Order Number: [id number] Exam Date: 03/14/2024 09:32 Report Date: 03/14/2024 [...] Signed By: 03/14/24 1006 DD/ 1003 TD/TT: Warp Knitter: [facility] Radiology, Radiologi MD barry - 03/14/2024 [place] [address] Ultrasound Report Signed Patient: ROSETTE ALBA MR#: [id number] : 2000 Acct:[id number] Age/Sex: 23 / F ADM Date: 03/14/24 Loc: US Attending Dr: Camacho Hernandez D.O. Ordering Physician: Camacho Hernandez D.O. Date of Service: 03/14/24 Procedure(s): US OB cervical length Accession Number(s): [id number] cc: Camacho Hernandez D.O.; OBDULIA ONEIL [place] [address] Patient Name: ROSETTE ALBA MRN: [facility]:[id number] date: 2000 Sex: F Assigned Patient Location: US Current Patient Location: US Accession/Order Number: [id number] Exam Date: 03/14/2024 09:32 Report Date: 03/14/2024 [...] Signed By: 03/14/24 1006 DD/ 1003 TD/TT: Warp Knitter: [facility] Radiology Study observation [...] Urobilinogen, UA 1.0 0.2 - 12 mg/dL [facility] Free Cell DNAon 2024 [facility] BOX TESTon 02-25-2024 BOX TEST SENT OUT [facility] BOX1 [facility] BOX2 02/25/2024 [facility] BOX [facility] HCG ( test) Ql (U)o n 02-03-2024 Interpretation and review of laboratory results Abnormal [facility] Preg Test, Ur Positive Negative [facility] Rad - Ultrasound Reporton Rad - Ultrasound Report [id number]#1.00OTGTIF [facility] Urinalysis macro (dipstick) panel (U)on [...] Urobilinogen, UA 0.2 0.2 - 12 mg/dL [facility] Rad - Other Radiology Report on 01-07-2024 Rad - Other Radiology Report [id number]#1.00OTGTIFF [facility] Outside Recordson 12-14-2023 Outside Records [id number]#1.00OTGTIF [facility] Outside Records [id number]#1.00OTGTIF F [facility] US liveron 10-07-2023 [facility] [place] [address] Ultrasound Report Signed Patient: Rosette Alba MR#: [id number] : 2000 Acct:[id number] Age/Sex: 23 / F ADM Date: 10/07/23 Loc: [facility]: [facility] Dr: Nataly Toure ASSOCIATE DIRECTOR REGULATORY AFFAIRS-C Ordering Provider: RONDA Reyes Date of Service: [...] Kirkland Jr., D.O.10/07/2023 11:25 AM Dictation Location: [place] [address] Tech: Marie Max Transcribed By: ANDREY 10/07/23 1125 Dictated By: Richard Kirkland Jr, DO 10/07/23 1123 Signed By: 10/07/23 1125 Normal [facility] US thyroidon 10-07-2023 thyroid [facility] [address] Ultrasound Report Signed Patient: Rosette Alba MR#: [id number] : 2000 Acct:[id number] Age/Sex: 23 / F ADM Date: 10/07/23 Loc: Room: Type: [facility] Attending Dr: Nataly BOND Ordering Provider: [...] Kirkland Jr., SorayaOIdania10/07/2023 11:26 AM Dictation Location: [place] [address] Tech: Marie Max Transcribed By: ANDREY 10/07/23 1126 Dictated By: Richard Kirkland Jr, DO 10/07/23 1125 Signed By: 10/07/23 1126 Normal [facility] XR KUBon 10-07-2023 XR KUB [facility] [address] XRay Report Signed Patient: Rosette Alba MR#: [id number] : 2000 Acct:[id number] Age/Sex: 23 / F ADM Date: 10/07/23 Loc: Room: Type: [facility] Attending Dr: Nataly BOND Copies to: [...] Kirkland Jr., D.O.10/07/2023 8:50 AM Dictation Location: [place] [address] Transcribed By: ANDREY 10/07/23 0850 Dictated By: Richard Kirkland Jr, DO 10/07/23 0849 Signed By: 10/07/23 0850 Normal [facility] Bacteria [Presence] in Urine by AutomatedOrdered By: Carmelo Vinson on 10-04-2023 Bacteria Auto Ql (U) None seen [HPF] None Seen [facility] Bilirubin Test strip Ql (U)O rdered By: Carmelo Vinson on 10-04-2023 Bilirubin Ql (U) Negative Negative [facility] Color of Urine by AutoOrdere d By: Carmelo Beckmanynes on 10-04-2023 Color (U) Yellow Normal Yellow [facility] Comment on above: Order Comment: Name Collection Type:: Clean-Voided Midstream Performed By: #### A DDONUAPLUS, UHCG #### [place] [address] [place] Dipstick and Microscopicon 0 10-04-2023 Bacteria,Urine None Seen Normal None Seen [facility] Comment on above: Order Comment: Name Collection Type:: Clean-Voided Midstream Performed By: #### A DDONUAPLUS, UHCG #### [place] [address] [place] Bilirubin,Urine Negative Normal Negative [facility] Comment on above: Order Comment: Name Collection Type:: Clean-Voided Midstream Performed By: #### A DDONUAPLUS, UHCG #### [place] [address] [place] Glucose Ql (U) Normal Normal Normal [facility] Comment on above: Order Comment: Name Collection Type:: Clean-Voided Midstream Performed By: #### A DDONUAPLUS, UHCG #### [place] [address] [place] Hyaline Casts,Urine 0-8 Normal 0-8 [facility] Comment on above: Order Comment: Name Collection Type:: Clean-Voided Midstream Performed By: #### A DDONUAPLUS, UHCG #### [place] [address] [place] Mucus,Urine 4+ Critically abnormal [facility] Comment on above: Order Comment: Name Collection Type:: Clean-Voided Midstream Performed By: #### A DDONUAPLUS, UHCG #### [place] [id number] [place] Nitrite,Urine Negative Normal Negative [facility] Comment on above: Order Comment: Name Collection Type:: Clean-Voided Midstream Performed By: #### A DDONUAPLUS, UHCG #### [place] [address] [place] Occult Blood,Urine Negative Normal Negative [facility] Comment on above: Order Comment: Name Collection Type:: Clean-Voided Midstream Performed By: #### A DDONUAPLUS, UHCG #### [address] RBC,Urine 1-2 Normal 0-4 [facility] Comment on above: Order Comment: Name Collection Type:: Clean-Voided Midstream Performed By: #### A DDONUAPLUS, UHCG #### [address] Specificy [place],Urine 1.039 High 1.001-1.03 0 [facility] Comment on above: Order Comment: Name Collection Type:: Clean-Voided Midstream Performed By: #### A DDONUAPLUS, UHCG #### [address] Squamous Epithelial Cell,Urine 5-9 High 0-2 [facility] Comment on above: Order Comment: Name Collection Type:: Clean-Voided Midstream Performed By: #### A DDONUAPLUS, UHCG #### [address] Urobilinogen,Urine 2 mg/dL High Normal [facility] Comment on above: Order Comment: Name Collection Type:: Clean-Voided Midstream Performed By: #### A DDONUAPLUS, UHCG #### [place] [address] [place] WBC,Urine 3-4 Normal 0-4 [facility] Comment on above: Order Comment: Name Collection Type:: Clean-Voided Midstream Performed By: #### A DDONUAPLUS, UHCG #### [address] Epithelial cells.squamous [# /area] in Urine sediment by Automated countOrdered By: Carmelo Vinson on 10-04-2023 Epithelial cells.squamous Auto (Urine sed) [#/Area] 5-9 [HPF] High 0-2 [facility] Erythrocytes [#/area] in Uri ne sediment by Automated countOrdered By: Carmelo Vinson on 10-04-2023 RBC Auto (Urine sed) [#/Area] 1-2 [HPF] 0-4 [facility] Glucose [Mass/volume] in Uri ne by Test stripOrdered By: Carmelo Vinson on 10-04-2023 Glucose Test strip (U) [Mass/Vol] Normal mg/dL Normal [facility] HCG ( test) IA.rapi d Ql (U)Ordered By: PROVIDER TEMP on 10-04-2023 HCG ( test) Ql (U) Negative [facility] HCG,Urineon 10-04-2023 Beta HCG ( test) Ql (U) Negative Normal [facility] Comment on above: Order Comment: Name Collection Type:: Clean-Voided Midstream Result Comment: PERF ORMED BY: [place] [address] PATHOLOGIST GEAR LAPPING MACHINE OPERATOR ALLA OROZCO M.D. Performed By: #### A [facility] #### [facility] [address] [place] [address] Hemoglobin Test strip Ql (U) Ordered By: Carmelo Vinson on 10-04-2023 Hemoglobin Ql (U) Negative Negative [facility] Hyaline casts [#/area] in Ur ine sediment by Automated countOrdered By: Carmelo Vinson on 10-04-2023 Hyaline casts Auto (Urine sed) [#/Area] 0-8 [LPF] 0-8 [facility] Ketones [Presence] in Urine by Test stripOrdered By: Carmelo Vinson on 10-04-2023 Ketones Ql (U) Trace High Negative [facility] Comment on above: Order Comment: Name Collection Type:: Clean-Voided Midstream Performed By: #### A DDONUAPLUS, UHCG #### [facility] [address] [place] [address] [place] Leukocyte esterase [Presence ] in Urine by Test stripOrdered By: Carmelo Vinson on 10-04-2023 Leukocyte esterase Test strip Ql (U) Negative Normal Negative [facility] Comment on above: Order Comment: Name Collection Type:: Clean-Voided Midstream Performed By: #### A VERNA GARCIA #### [address] Leukocytes [#/area] in Urine sediment by Automated countOrdered By: Carmelo Vinson on 10-04-2023 WBC Auto (Urine sed) [#/Area] 3-4 [HPF] 0-4 [facility] Mucus [Presence] in Urine by AutomatedOrdered By: Carmelo Vinson on 10-04-2023 Mucus Auto Ql (U) 4+ [LPF] Abnormal [facility] Nitrite Test strip Ql (U)Ord ered By: Carmelo Vinson on 10-04-2023 Nitrite Ql (U) Negative Negative [facility] Protein [Mass/volume] in Uri ne by Test stripOrdered By: Carmelo Vinson on 10-04-2023 Protein (U) [Mass/Vol] 30 mg/dL High Negative [facility] Comment on above: Order Comment: Name Collection Type:: Clean-Voided Midstream Performed By: #### A VERNA GARCIA #### [address] Specific gravity Test strip (U) [Rel density]Ordered By: Carmelo Vinson on 10-04-2023 Specific gravity (U) [Rel density] 1.039 High 1.001-1.03 0 [facility] Urine appearanceOrdered By: Carmelo Vinson on 10-04-2023 Appearance (U) Clear Normal Clear [facility] Comment on above: Order Comment: Name Collection Type:: Clean-Voided Midstream Performed By: #### A VERNA GARCIA #### [address] Urobilinogen Test strip (U) [Mass/Vol]Ordered By: Carmelo Vinson on 10-04-2023 Urobilinogen (U) [Mass/Vol] 2 mg/dL High Normal [facility] pH of Urine by Test stripOrd ered By: Carmelo Vinson on 10-04-2023 pH (U) 6.0 [pH] Normal 5.0-9.0 [facility] Comment on above: Order Comment: Name Collection Type:: Clean-Voided Midstream Performed By: #### A DDONUAPLUS, CG #### [facility] [address] [place] [address] [place] Alanine aminotransferase [En zymatic activity/volume] in Serum or PlasmaOrdered By: Nataly Toure on 09-30-2023 ALT [Catalytic activity/Vol] 14 U/L Normal 7-52 [facility] Comment on above: Order Comment: Reaso n for Exam Adenopathy Reason for Exam Iron deficiency Reason for Exam Hypothyroidism, unspecified type Performed By: #### C USTB #### [place] [address] [place] Albumin [Mass/volume] in Ser um or Plasma by Bromocresol green (BCG) dye binding methoOrdered By: Nataly Toure on 09-30-2023 Albumin BCG dye [Mass/Vol] 4.2 g/dL 3.5-5.7 [facility] Alkaline phosphatase [Enzyma tic activity/volume] in Serum or PlasmaOrdered By: Nataly Toure on 09-30-2023 ALP [Catalytic activity/Vol] 80 U/L Normal 34-104 [facility] Comment on above: Order Comment: Reaso n for Exam Adenopathy Reason for Exam Iron deficiency Reason for Exam Hypothyroidism, unspecified type Performed By: #### C USTB #### [facility] [address] [place] [address] [place] Aspartate aminotransferase [ Enzymatic activity/volume] in Serum or PlasmaOrdered By: Nataly Toure on 09-30-2023 AST [Catalytic activity/Vol] 10 U/L Low 13-39 [facility] Comment on above: Order Comment: Reaso n for Exam Adenopathy Reason for Exam Iron deficiency Reason for Exam Hypothyroidism, unspecified type Performed By: #### C USTB #### [place] [address] [place] Automated basophil %Ordered By: Nataly Toure on 09-30-2023 Basophils/100 WBC (Bld) 0.5 % Normal . [facility] Comment on above: Order Comment: Reaso n for Exam Adenopathy Performed By: #### C USTB #### [address] Automated basophil countOrde red By: Nataly Jerniganc on 09-30-2023 Basophils (Bld) [#/Vol] 0.0 10*3/uL Normal 0.0-0.2 [facility] Comment on above: Order Comment: Reaso n for Exam Adenopathy Result Comment: PERF ORMED BY: [place] [address] PATHOLOGIST GEAR LAPPING MACHINE OPERATOR ALLA OROZCO M.D. Performed By: #### C USTB #### [address] Automated blood monocyte cou ntOrdered By: Nataly Toure on 09-30-2023 Monocytes (Bld) [#/Vol] 0.7 10*3/uL Normal 0.0-0.8 [facility] Comment on above: Order Comment: Reaso n for Exam Adenopathy Performed By: #### C USTB #### [address] Automated eosinophil %Ordere d By: Nataly Jerniganc on 09-30-2023 Eosinophils/100 WBC (Bld) 0.4 % Normal . [facility] Comment on above: Order Comment: Reaso n for Exam Adenopathy Performed By: #### C USTB #### [address] Automated eosinophil countOr dered By: Nataly Jerniganc on 09-30-2023 Eosinophils (Bld) [#/Vol] 0.0 10*3/uL Normal 0.0-0.45 [facility] Comment on above: Order Comment: Reaso n for Exam Adenopathy Performed By: #### C USTB #### [address] Automated monocyte %Ordered By: Nataly Jerniganc on 09-30-2023 Monocytes/100 WBC (Bld) 8.0 % Normal . [facility] Comment on above: Order Comment: Reaso n for Exam Adenopathy Performed By: #### C USTB #### [facility] [address] [place] [address] [place] Automated neutrophil %Ordere d By: Nataly Junesic on 09-30-2023 Neutrophils/100 WBC (Bld) 58.7 % Normal . [facility] Comment on above: Order Comment: Reaso n for Exam Adenopathy Performed By: #### C USTB #### [address] Bilirubin.total [Mass/volume ] in Serum or PlasmaOrdered By: Nataly Jerniganc on 09-30-2023 Bilirubin [Mass/Vol] 0.3 mg/dL Normal 0.3-1.0 [facility] Comment on above: Order Comment: Reaso n for Exam Adenopathy Reason for Exam Iron deficiency Reason for Exam Hypothyroidism, unspecified type Performed By: #### C USTB #### [place] [address] [place] Calcium [Mass/volume] in Ser um or PlasmaOrdered By: Nataly Jerniganc on 09-30-2023 Calcium [Mass/Vol] 9.3 mg/dL Normal 8.6-10.3 [facility] [facility] Comment on above: Order Comment: Reaso n for Exam Adenopathy Reason for Exam Iron deficiency Reason for Exam Hypothyroidism, unspecified type Performed By: #### C USTB #### [place] [address] [place] Carbon dioxide, total [Moles /volume] in Serum or PlasmaOrdered By: Nataly Junesic on 09-30-2023 CO2 [Moles/Vol] 29.9 mmol/L Normal 21.0-31.0 [facility] Comment on above: Order Comment: Reaso n for Exam Adenopathy Reason for Exam Iron deficiency Reason for Exam Hypothyroidism, unspecified type Performed By: #### C USTB #### [place] [id number] [place] Chloride [Moles/volume] in S rosa or PlasmaOrdered By: Nataly Toure on 09-30-2023 Chloride [Moles/Vol] 103 mmol/L Normal 98-107 [facility] Comment on above: Order Comment: Reaso n for Exam Adenopathy Reason for Exam Iron deficiency Reason for Exam Hypothyroidism, unspecified type Performed By: #### C USTB #### [address] Complete Blood Count Auto Di ffon 09-30-2023 Mean Corpuscular HGB Conc 33.2 g/dL Normal 32.0-35.0 [facility] Comment on above: Order Comment: Reaso n for Exam Adenopathy Performed By: #### C USTB #### [address] NRBC% 0.1 /100{WBC} Normal 0-0.5 [facility] Comment on above: Order Comment: Reaso n for Exam Adenopathy Performed By: #### C USTB #### [address] Comprehensive Metabolic Pane ramakrishna 09-30-2023 Albumin [Mass/Vol] 4.2 g/dL Normal 3.5-5.7 [facility] Comment on above: Order Comment: Reaso n for Exam Adenopathy Reason for Exam Iron deficiency Reason for Exam Hypothyroidism, unspecified type Performed By: #### C USTB #### [address] GFR/1.73 sq M.predicted MDRD (S/P/Bld) [Vol rate/Area] mL/min/{1.73_m2} Normal [facility] Comment on above: Order Comment: Reaso n for Exam Adenopathy Reason for Exam Iron deficiency Reason for Exam Hypothyroidism, unspecified type Performed By: #### C USTB #### [address] Creatinine [Mass/volume] in Serum or PlasmaOrdered By: Nataly Toure on 09-30-2023 Creatinine [Mass/Vol] 0.73 mg/dL Normal 0.60-1.20 [facility] Comment on above: Order Comment: Reaso n for Exam Adenopathy Reason for Exam Iron deficiency Reason for Exam Hypothyroidism, unspecified type Performed By: #### C USTB #### [address] D-Dimer High Sensitivityon 0 - D-Dimer High Sensitivity < 200 Normal 0-243 [facility] Comment on above: Order Comment: [...] coagulation studies. Please contact the laboratory at [phone] for redraw instructions. PERFORMED BY: [place] [address] PATHOLOGIST GEAR LAPPING MACHINE OPERATOR ALLA OROZCO M.D. Performed By: #### G TT3 #### [address] Erythrocyte distribution wid th [Ratio] by Automated countOrdered By: Nataly Toure on 09-30-2023 Erythrocyte distribution width (RBC) [Ratio] 15.0 % Normal 11.9-15.3 [facility] Comment on above: Order Comment: Reaso n for Exam Adenopathy Performed By: #### C USTB #### [address] Erythrocytes [#/volume] in B lood by Automated countOrdered By: Nataly Toure on 09-30-2023 RBC (Bld) [#/Vol] 4.79 10*6/uL Normal 3.60-5.00 [facility] Comment on above: Order Comment: Reaso n for Exam Adenopathy Performed By: #### C USTB #### [facility] [address] Fibrin D-dimer [Presence] in Platelet poor plasma by Latex agglutinationOrdered By: Nataly Toure on 09-30-2023 Fibrin D-dimer LA Ql (PPP) < 200 ng/mL 0-243 [facility] Comment on above: The reference range for [...] coagulation studies. Please contact the laboratory at [phone] for redraw instructions. Glucose [Mass/volume] in Ser um or PlasmaOrdered By: Nataly Toure on 09-30-2023 Glucose [Mass/Vol] 75 mg/dL Normal 70-100 [facility] Comment on above: ADA recommended refe rence rangeRandom Glucose Reference Range is dependent on time and content of last meal. Glucose of more than 200 mg/dL in a nonstressed, ambulatory subject supports the diagnosis of Diabetes Mellitus. Order Comment: Reaso n for Exam Adenopathy Reason for Exam Iron deficiency Reason for Exam Hypothyroidism, unspecified type Result Comment: [place] om Glucose Reference Range is dependent on time and content of last meal. Glucose of more than 200 mg/dL in a nonstressed, ambulatory subject supports the diagnosis of Diabetes Mellitus. ADA recommended reference range Performed By: #### C USTB #### [facility] [address] [place] [id number] [facility] Hematocrit [Volume Fraction] of Blood by Automated countOrdered By: Nataly Toure on 09-30-2023 Hematocrit (Bld) [Volume fraction] 37.9 % Normal 34.0-46.4 [facility] Comment on above: Order Comment: Reaso n for Exam Adenopathy Performed By: #### C USTB #### [facility] [address] [place], [place] [id number] [facility] Hemoglobin [Mass/volume] in BloodOrdered By: Nataly Jerniganc on 09-30-2023 Hemoglobin (Bld) [Mass/Vol] 12.6 g/dL Normal 11.8-15.4 [facility] Comment on above: Order Comment: Reaso n for Exam Adenopathy Performed By: #### C USTB #### [place] [id number] [facility] Iron [Mass/volume] in Serum or PlasmaOrdered By: Nataly Junesic on 09-30-2023 Iron [Mass/Vol] 43 ug/dL Low 50-212 [facility] Comment on above: Order Comment: Reaso n for Exam Adenopathy Reason for Exam Iron deficiency Reason for Exam Hypothyroidism, unspecified type Performed By: #### G TT3 #### [facility] [address] [place], [place] [id number] [place] Iron and TIBC Profileon 09-15 % Iron Saturation 10.6 % Low 20-50 [facility] Comment on above: Order Comment: Reaso n for Exam Adenopathy Reason for Exam Iron deficiency Reason for Exam Hypothyroidism, unspecified type Performed By: #### G TT3 #### [facility] [address] [place], [place] [id number] [place] Total Iron Binding Capacity 406 ug/dL Normal 255-450 [facility] Comment on above: Order Comment: Reaso n for Exam Adenopathy Reason for Exam Iron deficiency Reason for Exam Hypothyroidism, unspecified type Performed By: #### G TT3 #### [place] [id number] [place] Iron binding capacity [Mass/ volume] in Serum or PlasmaOrdered By: Nataly Junesic on 09-30-2023 Iron binding capacity [Mass/Vol] 406 ug/dL 255-450 [facility] Iron saturation [Mass Fracti on] in Serum or PlasmaOrdered By: Nataly Toure on 09-30-2023 Iron saturation [Mass fraction] 10.6 % Low 20-50 [facility] Leukocytes [#/volume] correc kee for nucleated erythrocytes in Blood by Automated counOrdered By: Nataly Toure on 09-30-2023 WBC corrected for nucl RBC Auto (Bld) [#/Vol] 8.2 10*3/uL 3.8-11.6 [facility] Leukocytes [#/volume] in Blo od by Automated countOrdered By: Nataly Toure on 09-30-2023 WBC (Bld) [#/Vol] 8.2 10*3/uL Normal 3.8-11.6 [facility] Comment on above: Order Comment: Reaso n for Exam Adenopathy Performed By: #### C USTB #### [facility] [address] [place] [address] [place] Lymphocytes [#/volume] in Bl ood by Automated countOrdered By: Nataly Toure on 09-30-2023 Lymphocytes (Bld) [#/Vol] 2.7 10*3/uL Normal 1.00-4.8 [facility] Comment on above: Order Comment: Reaso n for Exam Adenopathy Performed By: #### C USTB #### [facility] [address] [place], [place] [id number] [place] Lymphocytes/100 leukocytes i n Blood by Automated countOrdered By: Nataly Toure on 09-30-2023 Lymphocytes/100 WBC (Bld) 32.4 % Normal . [facility] Comment on above: Order Comment: Reaso n for Exam Adenopathy Performed By: #### C USTB #### [facility] [address] [place] [id number] [place] MCH [Entitic mass] by Automa kee countOrdered By: Nataly Toure on 09-30-2023 MCH (RBC) [Entitic mass] 26.3 pg Normal 24.7-34.3 [facility] Comment on above: Order Comment: Reaso n for Exam Adenopathy Performed By: #### C USTB #### [facility] [address] [place] [address] MCHC Auto (RBC) [Mass/Vol]Or dered By: Nataly Toure on 09-30-2023 MCHC (RBC) [Mass/Vol] 33.2 g/dL 32.0-35.0 [facility] MCV [Entitic volume] by Auto mated countOrdered By: Nataly Toure on 09-30-2023 MCV (RBC) [Entitic vol] 79.1 fL Low 80-100 [facility] Comment on above: Order Comment: Reaso n for Exam Adenopathy Performed By: #### C USTB #### [address] Neutrophils [#/volume] in Bl ood by Automated countOrdered By: Nataly Toure on 09-30-2023 Neutrophils (Bld) [#/Vol] 4.8 10*3/uL Normal 1.8-7.7 [facility] Comment on above: Order Comment: Reaso n for Exam Adenopathy Performed By: #### C USTB #### [facility] [address] [place] [address] No Panel InformationOrdered By: Nataly Toure on 09-30-2023 Estimated GFR (CKD-EPI) > 60.0 mL/Min [facility] Creatinine Clearance (Chem N/A [facility] Nucleated erythrocytes [Pres ence] in Blood by Automated countOrdered By: Nataly Toure on 09-30-2023 Nucleated RBC Auto Ql (Bld) 0.1 /100{WBC} 0-0.5 [facility] Platelet mean volume [Entiti c volume] in Blood by Automated countOrdered By: Nataly Toure on 09-30-2023 Platelet mean volume (Bld) [Entitic vol] 9.2 fL Normal 6.3-10.7 [facility] Comment on above: Order Comment: Reaso n for Exam Adenopathy Performed By: #### C USTB #### [facility] [address] [place] [address] [place] Platelets [#/volume] in Bloo d by Automated countOrdered By: Nataly Toure on 09-30-2023 Platelets (Bld) [#/Vol] 246 10*3/uL Normal 150-450 [facility] Comment on above: Order Comment: Reaso n for Exam Adenopathy Performed By: #### C USTB #### [address] Potassium [Moles/volume] in Serum or PlasmaOrdered By: Nataly Toure on 09-30-2023 Potassium [Moles/Vol] 3.9 mmol/L Normal 3.5-5.1 [facility] Comment on above: Order Comment: Reaso n for Exam Adenopathy Reason for Exam Iron deficiency Reason for Exam Hypothyroidism, unspecified type Performed By: #### C USTB #### [address] Protein [Mass/volume] in Ser um or PlasmaOrdered By: Nataly Toure on 09-30-2023 Protein [Mass/Vol] 7.0 g/dL Normal 6.4-8.9 [facility] Comment on above: Order Comment: Reaso n for Exam Adenopathy Reason for Exam Iron deficiency Reason for Exam Hypothyroidism, unspecified type Performed By: #### C USTB #### [address] Serum globulin measurement b y calculation (mass/volume)Ordered By: Nataly Toure on 09-30-2023 Globulin (S) [Mass/Vol] 2.8 g/dL [facility] Comment on above: Order Comment: Reaso n for Exam Adenopathy Reason for Exam Iron deficiency Reason for Exam Hypothyroidism, unspecified type Performed By: #### C USTB #### [facility] [address] [place] [address] [place] Serum or plasma albumin/glob ulin mass ratioOrdered By: Nataly Toure on 09-30-2023 Albumin/Globulin [Mass ratio] 1.5 {ratio} [facility] Comment on above: Order Comment: Reaso n for Exam Adenopathy Reason for Exam Iron deficiency Reason for Exam Hypothyroidism, unspecified type Performed By: #### C USTB #### [facility] [address] [place] [address] Serum or plasma anion gap de terminationOrdered By: Nataly Toure on 09-30-2023 Anion gap [Moles/Vol] 11.0 mmol/L Normal 6.0-15.0 [facility] Comment on above: Order Comment: Reaso n for Exam Adenopathy Reason for Exam Iron deficiency Reason for Exam Hypothyroidism, unspecified type Performed By: #### C USTB #### [facility] [address] [place] [address] Sodium [Moles/volume] in Ser um or PlasmaOrdered By: Nataly Toure on 09-30-2023 Sodium [Moles/Vol] 140 mmol/L Normal 136-145 [facility] Comment on above: Order Comment: Reaso n for Exam Adenopathy Reason for Exam Iron deficiency Reason for Exam Hypothyroidism, unspecified type Performed By: #### C USTB #### [facility] [address] [place] [address] Thyroid Stim Hormone w/Rflxo n 09-30-2023 Thyroid Stim Hormone w/Rflx 4.99 u[iU]/mL Normal 0.45-5.33 [facility] Comment on above: Order Comment: Reaso n for Exam Adenopathy Reason for Exam Iron deficiency Reason for Exam Hypothyroidism, unspecified type Result Comment: PERF ORMED BY: [place] [address] PATHOLOGIST GEAR LAPPING MACHINE OPERATOR ALLA OROZCO M.D. Performed By: #### G TT3 #### [address] Thyrotropin [Units/volume] i n Serum or PlasmaOrdered By: Nataly Toure on 09-30-2023 TSH Qn 4.99 m[IU]/L 0.45-5.33 [facility] Transferrin [Mass/volume] in Serum or PlasmaOrdered By: Nataly Toure on 09-30-2023 Transferrin [Mass/Vol] 290 mg/dL Normal 203-362 [facility] Comment on above: Order Comment: Reaso n for Exam Adenopathy Reason for Exam Iron deficiency Reason for Exam Hypothyroidism, unspecified type Performed By: #### G TT3 #### [facility] [address] Urea nitrogen [Mass/volume] in Serum or PlasmaOrdered By: Nataly Toure on 09-30-2023 Urea nitrogen [Mass/Vol] 23 mg/dL Normal 7-25 [facility] Comment on above: Order Comment: Reaso n for Exam Adenopathy Reason for Exam Iron deficiency Reason for Exam Hypothyroidism, unspecified type Performed By: #### C USTB #### [facility] [address] lumbar spine wo conon CT lumbar spine wo con [facility] Main [place] [address] [place] [address] CT Scan Report Signed Patient: Rosette Alba MR#: [id number] : 2000 Acct:[id number] Age/Sex: 23 / F ADM Date: 09/26/23 Loc: ER Room: Type: [facility] ER Attending Dr: Copies to: [...] Deborah Vazquez M.D.09/27/2023 8:13 AM Dictation Location: [place] [address] Transcribed By: ANDREY 09/27/23812 Dictated By: Deborah Vazquez MD 09/27/23803 Signed By: 09/27/23812 Normal [facility] Bacteria [Presence] in Urine by AutomatedOrdered By: Devon Leon on 09-26-2023 Bacteria Auto Ql (U) Rare [HPF] None Seen [facility] Bilirubin Test strip Ql (U)O rdered By: Devon Leon on 09-26-2023 Bilirubin Ql (U) Negative Negative [facility] Color of Urine by AutoOrdere d By: Devon Leon on 09-26-2023 Color (U) Light-yellow Normal Yellow [facility] Comment on above: Order Comment: Name Collection Type:: Clean-Voided Midstream Performed By: #### A DDONUAPLUS, CUU #### [facility] [address] [place] [address] [place] Dipstick and Microscopicon 0 09-26-2023 Bacteria,Urine Rare Normal None Seen [facility] Comment on above: Order Comment: Name Collection Type:: Clean-Voided Midstream Performed By: #### A DDONUAPLUS, CUU #### [facility] [address] [place] [id number] [place] Bilirubin,Urine Negative Normal Negative [facility] Comment on above: Order Comment: Name Collection Type:: Clean-Voided Midstream Performed By: #### A DDONUAPLUS, CUU #### [address] Glucose Ql (U) Normal Normal Normal [facility] Comment on above: Order Comment: Name Collection Type:: Clean-Voided Midstream Performed By: #### A DDONUAPLUS, CUU #### [place] [address] [place] Hyaline Casts,Urine None Normal 0-8 [facility] Comment on above: Order Comment: Name Collection Type:: Clean-Voided Midstream Performed By: #### A DDONUAPLUS, CUU #### [place] [address] [place] Mucus,Urine 2+ Critically abnormal [facility] Comment on above: Order Comment: Name Collection Type:: Clean-Voided Midstream Performed By: #### A DDONUAPLUS, CUU #### [place] [address] [place] Nitrite,Urine Negative Normal Negative [facility] Comment on above: Order Comment: Name Collection Type:: Clean-Voided Midstream Performed By: #### A DDONUAPLUS, CUU #### [place] [address] [place] Occult Blood,Urine 2+ High Negative [facility] Comment on above: Order Comment: Name Collection Type:: Clean-Voided Midstream Result Comment: PERF ORMED BY: [place] [address] PATHOLOGIST GEAR LAPPING MACHINE OPERATOR ALLA OROZCO M.D. Performed By: #### A DDONUAPLUS, CUU #### [place] [address] [place] Protein,Urine Trace High Negative [facility] Comment on above: Order Comment: Name Collection Type:: Clean-Voided Midstream Performed By: #### A DDONUAPLUS, CUU #### [place] [address] [place] RBC,Urine 3-4 Normal 0-4 [facility] Comment on above: Order Comment: Name Collection Type:: Clean-Voided Midstream Performed By: #### A DDONUAPLUS, CUU #### [address] Specificy [place],Urine 1.030 Normal 1.001-1.03 0 [facility] Comment on above: Order Comment: Name Collection Type:: Clean-Voided Midstream Performed By: #### A DDONUAPLUS, CUU #### [place] [address] [place] Sperm,Urine 5-9 High 0-2 [facility] Comment on above: Order Comment: Name Collection Type:: Clean-Voided Midstream Result Comment: PERF ORMED BY: [place] [address] PATHOLOGIST GEAR LAPPING MACHINE OPERATOR ALLA OROZCO M.D. Performed By: #### A DDONUAPLUS, CUU #### [address] Squamous Epithelial Cell,Urine 5-9 High 0-2 [facility] Comment on above: Order Comment: Name Collection Type:: Clean-Voided Midstream Performed By: #### A DDONUAPLUS, CUU #### [address] Urobilinogen,Urine Normal Normal Normal [facility] Comment on above: Order Comment: Name Collection Type:: Clean-Voided Midstream Performed By: #### A DDONUAPLUS, CUU #### [place] [address] [place] WBC,Urine 5-9 High 0-4 [facility] Comment on above: Order Comment: Name Collection Type:: Clean-Voided Midstream Performed By: #### A DDONUAPLUS, CUU #### [address] Epithelial cells.squamous [# /area] in Urine sediment by Automated countOrdered By: Devon Leon on 09-26-2023 Epithelial cells.squamous Auto (Urine sed) [#/Area] 5-9 [HPF] High 0-2 [facility] Erythrocytes [#/area] in Uri ne sediment by Automated countOrdered By: Devon Leon on 09-26-2023 RBC Auto (Urine sed) [#/Area] 3-4 [HPF] 0-4 [facility] Glucose [Mass/volume] in Uri ne by Test stripOrdered By: Devon Leon on 09-26-2023 Glucose Test strip (U) [Mass/Vol] Normal mg/dL Normal [facility] Hemoglobin Test strip Ql (U) Ordered By: Devon Leon on 09-26-2023 Hemoglobin Ql (U) 2+ High Negative [facility] Hyaline casts [#/area] in Ur ine sediment by Automated countOrdered By: Devon Leon on 09-26-2023 Hyaline casts Auto (Urine sed) [#/Area] None [LPF] 0-8 [facility] Ketones [Presence] in Urine by Test stripOrdered By: Devon Leon on 09-26-2023 Ketones Ql (U) Negative Normal Negative [facility] Comment on above: Order Comment: Name Collection Type:: Clean-Voided Midstream Performed By: #### A DDONUAPLUS, CUU #### [facility] [address] [place] [address] [place] Leukocyte esterase [Presence ] in Urine by Test stripOrdered By: Devon Leon on 09-26-2023 Leukocyte esterase Test strip Ql (U) 2+ High Negative [facility] Comment on above: Order Comment: Name Collection Type:: Clean-Voided Midstream Performed By: #### A DDONUAPLUS, CUU #### [facility] [address] [place] [address] [place] Leukocytes [#/area] in Urine sediment by Automated countOrdered By: Devon Leon on 09-26-2023 WBC Auto (Urine sed) [#/Area] 5-9 [HPF] High 0-4 [facility] Mucus [Presence] in Urine by AutomatedOrdered By: Devon Leon on 09-26-2023 Mucus Auto Ql (U) 2+ [LPF] Abnormal [facility] Nitrite Test strip Ql (U)Ord ered By: Devon Leon on 09-26-2023 Nitrite Ql (U) Negative Negative [facility] Protein Test strip (U) [Mass /Vol]Ordered By: Devon Leon on 09-26-2023 Protein (U) [Mass/Vol] Trace mg/dL High Negative F [facility] Specific gravity Test strip (U) [Rel density]Ordered By: Devon Leon on 09-26-2023 Specific gravity (U) [Rel density] 1.030 1.001-1.03 0 [facility] Spermatozoa [#/area] in Urin e sediment by Automated countOrdered By: Devon Leon on 09-26-2023 Spermatozoa Auto (Urine sed) [#/Area] 5-9 [HPF] High 0-2 [facility] Urine Cultureon 09-26-2023 Bacteria identified Cx Nom (U) ORGANISM: Strep agalactiae - (group b) (O:STRAGA) [place] Count 75,000 PERFORMED BY: [place] [address] PATHOLOGIST GEAR LAPPING MACHINE OPERATOR ALLA OROZCO M.D. Normal [facility] Comment on above: Performed By: #### A DDONUAPLUS, CUU #### [facility] [address] [place] [address] Urine appearanceOrdered By: Devon Leon on 09-26-2023 Appearance (U) Clear Normal Clear [facility] Comment on above: Order Comment: Name Collection Type:: Clean-Voided Midstream Performed By: #### A DDONUAPLUS, CUU #### [facility] [address] [place] [address] Urine culture routineOrdered By: Devon Leon on 09-26-2023 Bacteria identified Cx Nom (U) Strep agalactiae - (group b) Abnormal [facility] Urobilinogen Test strip (U) [Mass/Vol]Ordered By: Devon Leon on 09-26-2023 Urobilinogen (U) [Mass/Vol] Normal mg/dL Normal [facility] pH of Urine by Test stripOrd ered By: Devon Leon on 09-26-2023 pH (U) 6.0 [pH] Normal 5.0-9.0 [facility] Comment on above: Order Comment: Name Collection Type:: Clean-Voided Midstream Performed By: #### A DDONUAPLUS, CUU #### [facility] [address] [place] [id number] [place] Alanine aminotransferase [En zymatic activity/volume] in Serum or PlasmaOrdered By: Nataly Toure on 08-03-2023 ALT [Catalytic activity/Vol] 14 U/L Normal 7-52 [facility] Comment on above: Order Comment: Reaso n for Exam Hypothyroidism, unspecified type;High blood triglycerides Reason for Exam Iron deficiency Reason for Exam High blood triglycerides Reason for Exam Hypothyroidism, unspecified type Performed By: #### G TT3 #### [facility] [address] [place] [id number] [place] Albumin [Mass/volume] in Ser um or Plasma by Bromocresol green (BCG) dye binding methoOrdered By: Nataly Toure on 08-03-2023 Albumin BCG dye [Mass/Vol] 4.4 g/dL 3.5-5.7 [facility] Alkaline phosphatase [Enzyma tic activity/volume] in Serum or PlasmaOrdered By: Nataly Toure on 08-03-2023 ALP [Catalytic activity/Vol] 85 U/L Normal 34-104 [facility] Comment on above: Order Comment: Reaso n for Exam Hypothyroidism, unspecified type;High blood triglycerides Reason for Exam Iron deficiency Reason for Exam High blood triglycerides Reason for Exam Hypothyroidism, unspecified type Performed By: #### G TT3 #### [facility] [address] [place] [id number] [place] Aspartate aminotransferase [ Enzymatic activity/volume] in Serum or PlasmaOrdered By: Nataly Toure on 08-03-2023 AST [Catalytic activity/Vol] 13 U/L Normal 13-39 [facility] Comment on above: Order Comment: Reaso n for Exam Hypothyroidism, unspecified type;High blood triglycerides Reason for Exam Iron deficiency Reason for Exam High blood triglycerides Reason for Exam Hypothyroidism, unspecified type Performed By: #### G TT3 #### [facility] [address] [place] [id number] [place] Automated basophil %Ordered By: Nataly Toure on 08-03-2023 Basophils/100 WBC (Bld) 0.4 % Normal . [facility] Comment on above: Order Comment: Reaso n for Exam Iron deficiency Performed By: #### G TT3 #### [facility] [address] [place] [address] Automated basophil countOrde red By: Nataly Toure on 08-03-2023 Basophils (Bld) [#/Vol] 0.0 10*3/uL Normal 0.0-0.2 [facility] Comment on above: Order Comment: Reaso n for Exam Iron deficiency Result Comment: PERF ORMED BY: [place] [address] PATHOLOGIST GEAR LAPPING MACHINE OPERATOR ALLA OROZCO M.D. Performed By: #### G TT3 #### [address] Automated blood monocyte cou ntOrdered By: Nataly Toure on 08-03-2023 Monocytes (Bld) [#/Vol] 0.4 10*3/uL Normal 0.0-0.8 [facility] Comment on above: Order Comment: Reaso n for Exam Iron deficiency Performed By: #### G TT3 #### [address] Automated eosinophil %Ordere d By: Nataly Toure on 08-03-2023 Eosinophils/100 WBC (Bld) 0.5 % Normal . [facility] Comment on above: Order Comment: Reaso n for Exam Iron deficiency Performed By: #### G TT3 #### [facility] [address] [place] [address] Automated eosinophil countOr dered By: Nataly Toure on 08-03-2023 Eosinophils (Bld) [#/Vol] 0.0 10*3/uL Normal 0.0-0.45 [facility] Comment on above: Order Comment: Reaso n for Exam Iron deficiency Performed By: #### G TT3 #### [address] Automated monocyte %Ordered By: Nataly Toure on 08-03-2023 Monocytes/100 WBC (Bld) 5.4 % Normal . [facility] Comment on above: Order Comment: Reaso n for Exam Iron deficiency Performed By: #### G TT3 #### [facility] [address] Automated neutrophil %Ordere d By: Nataly Toure on 08-03-2023 Neutrophils/100 WBC (Bld) 70.9 % Normal . [facility] Comment on above: Order Comment: Reaso n for Exam Iron deficiency Performed By: #### G TT3 #### [facility] [address] Bilirubin.total [Mass/volume ] in Serum or PlasmaOrdered By: Nataly Toure on 08-03-2023 Bilirubin [Mass/Vol] 0.5 mg/dL Normal 0.3-1.0 [facility] Comment on above: Order Comment: Reaso n for Exam Hypothyroidism, unspecified type;High blood triglycerides Reason for Exam Iron deficiency Reason for Exam High blood triglycerides Reason for Exam Hypothyroidism, unspecified type Performed By: #### G TT3 #### [facility] [address] Calcium [Mass/volume] in Ser um or PlasmaOrdered By: Nataly Toure on 08-03-2023 Calcium [Mass/Vol] 9.5 mg/dL Normal 8.6-10.3 [facility] Comment on above: Order Comment: Reaso n for Exam Hypothyroidism, unspecified type;High blood triglycerides Reason for Exam Iron deficiency Reason for Exam High blood triglycerides Reason for Exam Hypothyroidism, unspecified type Performed By: #### G TT3 #### [facility] [address] Carbon dioxide, total [Moles /volume] in Serum or PlasmaOrdered By: Nataly Toure on 08-03-2023 CO2 [Moles/Vol] 27.2 mmol/L Normal 21.0-31.0 [facility] Comment on above: Order Comment: Reaso n for Exam Hypothyroidism, unspecified type;High blood triglycerides Reason for Exam Iron deficiency Reason for Exam High blood triglycerides Reason for Exam Hypothyroidism, unspecified type Performed By: #### G TT3 #### [facility] [address] [place] [address] [place] Chloride [Moles/volume] in S rosa or PlasmaOrdered By: Nataly Toure on 08-03-2023 Chloride [Moles/Vol] 105 mmol/L Normal 98-107 [facility] Comment on above: Order Comment: Reaso n for Exam Hypothyroidism, unspecified type;High blood triglycerides Reason for Exam Iron deficiency Reason for Exam High blood triglycerides Reason for Exam Hypothyroidism, unspecified type Performed By: #### G TT3 #### [facility] [address] [place] [id number] [place] Cholesterol [Mass/volume] in Serum or PlasmaOrdered By: Nataly Toure on 08-03-2023 Cholesterol [Mass/Vol] 159 mg/dL Normal 140-200 [facility] Comment on above: Chol less than [...] risk Performed By: #### G TT3 #### [facility] [address] [place] [address] [place] Cholesterol in LDL Calc [Mas s/Vol]Ordered By: Nataly Toure on 08-03-2023 Cholesterol in LDL [Mass/Vol] 82 mg/dL 0-100 [facility] Comment on above: LDL ATP III CLASSIFI CATIONLDL less than 100 mg/dL OptimalLDL 100-129 mg/dL Near or above optimalLDL 130-159 mg/dL Borderline highLDL 160-189 mg/dL HighLDL greater than 189 mg/dL Very high Cholesterol in VLDL Calc [Ma ss/Vol]Ordered By: Nataly Toure on 08-03-2023 Cholesterol in VLDL [Mass/Vol] 28 mg/dL [facility] Complete Blood Count Auto Di ffon 08-03-2023 Mean Corpuscular HGB Conc 33.1 g/dL Normal 32.0-35.0 [facility] Comment on above: Order Comment: Reaso n for Exam Iron deficiency Performed By: #### G TT3 #### [address] NRBC% 0.2 /100{WBC} Normal 0-0.5 [facility] Comment on above: Order Comment: Reaso n for Exam Iron deficiency Performed By: #### G TT3 #### [address] Comprehensive Metabolic Pane ramakrishna 08-03-2023 Albumin [Mass/Vol] 4.4 g/dL Normal 3.5-5.7 [facility] Comment on above: Order Comment: Reaso n for Exam Hypothyroidism, unspecified type;High blood triglycerides Reason for Exam Iron deficiency Reason for Exam High blood triglycerides Reason for Exam Hypothyroidism, unspecified type Performed By: #### G TT3 #### [address] GFR/1.73 sq M.predicted MDRD (S/P/Bld) [Vol rate/Area] mL/min/{1.73_m2} Normal [facility] Comment on above: Order Comment: Reaso n for Exam Hypothyroidism, unspecified type;High blood triglycerides Reason for Exam Iron deficiency Reason for Exam High blood triglycerides Reason for Exam Hypothyroidism, unspecified type Performed By: #### G TT3 #### [address] Creatinine [Mass/volume] in Serum or PlasmaOrdered By: Nataly Toure on 08-03-2023 Creatinine [Mass/Vol] 0.78 mg/dL Normal 0.60-1.20 [facility] Comment on above: Order Comment: Reaso n for Exam Hypothyroidism, unspecified type;High blood triglycerides Reason for Exam Iron deficiency Reason for Exam High blood triglycerides Reason for Exam Hypothyroidism, unspecified type Performed By: #### G TT3 #### [facility] [address] [place] [address] Erythrocyte distribution wid th [Ratio] by Automated countOrdered By: Nataly Toure on 08-03-2023 Erythrocyte distribution width (RBC) [Ratio] 14.3 % Normal 11.9-15.3 [facility] Comment on above: Order Comment: Reaso n for Exam Iron deficiency Performed By: #### G TT3 #### [facility] [address] [place] [address] [place] Erythrocytes [#/volume] in B lood by Automated countOrdered By: Nataly Toure on 08-03-2023 RBC (Bld) [#/Vol] 4.72 10*6/uL Normal 3.60-5.00 [facility] Comment on above: Order Comment: Reaso n for Exam Iron deficiency Performed By: #### G TT3 #### [facility] [address] [place] [address] [place] Glucose [Mass/volume] in Ser um or PlasmaOrdered By: Nataly Toure on 08-03-2023 Glucose [Mass/Vol] 82 mg/dL Normal 70-100 [facility] Comment on above: ADA recommended [...] for Exam Hypothyroidism, unspecified type Result Comment: [place] om Glucose Reference Range is dependent on time and content of last meal. Glucose of more than 200 mg/dL in a nonstressed, ambulatory subject supports the diagnosis of Diabetes Mellitus. ADA recommended reference range Performed By: #### G TT3 #### [facility] [address] [place] [address] [place] Hematocrit [Volume Fraction] of Blood by Automated countOrdered By: Nataly Toure on 08-03-2023 Hematocrit (Bld) [Volume fraction] 36.8 % Normal 34.0-46.4 [facility] Comment on above: Order Comment: Reaso n for Exam Iron deficiency Performed By: #### G TT3 #### [facility] [address] [place] [address] [place] Hemoglobin [Mass/volume] in BloodOrdered By: Nataly Toure on 08-03-2023 Hemoglobin (Bld) [Mass/Vol] 12.2 g/dL Normal 11.8-15.4 [facility] Comment on above: Order Comment: Reaso n for Exam Iron deficiency Performed By: #### G TT3 #### [facility] [address] [place] [address] Insulinon 08-03-2023 Insulin 14.1 u[iU]/mL Normal 2.6-24.9 [facility] Comment on above: Order Comment: Name Collection Type:: Clean-Voided Midstream Result Comment: Perf ormed at: - [facility] [address] [id number] Cryptologic Supervisor: Sam Lopez PhD, Phone: [phone] PERFORMED BY: [place] [address] PATHOLOGIST GEAR LAPPING MACHINE OPERATOR ALLA OROZCO M.D. Performed By: #### A DDONUALETICIA, [facility] #### [address] Iron [Mass/volume] in Serum or PlasmaOrdered By: Nataly Toure on 08-03-2023 Iron [Mass/Vol] 43 ug/dL Low 50-212 [facility] Comment on above: Order Comment: Reaso n for Exam Hypothyroidism, unspecified type;High blood triglycerides Reason for Exam Iron deficiency Reason for Exam High blood triglycerides Reason for Exam Hypothyroidism, unspecified type Performed By: #### G TT3 #### [facility] [address] [place] [address] Iron and TIBC Profileon 07-16 % Iron Saturation 11.3 % Low 20-50 [facility] Comment on above: Order Comment: Reaso n for Exam Hypothyroidism, unspecified type;High blood triglycerides Reason for Exam Iron deficiency Reason for Exam High blood triglycerides Reason for Exam Hypothyroidism, unspecified type Performed By: #### G TT3 #### [address] Total Iron Binding Capacity 382 ug/dL Normal 255-450 [facility] Comment on above: Order Comment: Reaso n for Exam Hypothyroidism, unspecified type;High blood triglycerides Reason for Exam Iron deficiency Reason for Exam High blood triglycerides Reason for Exam Hypothyroidism, unspecified type Performed By: #### G TT3 #### [facility] [address] Iron binding capacity [Mass/ volume] in Serum or PlasmaOrdered By: Nataly Toure on 08-03-2023 Iron binding capacity [Mass/Vol] 382 ug/dL 255-450 [facility] Iron saturation [Mass Fracti on] in Serum or PlasmaOrdered By: Nataly Toure on 08-03-2023 Iron saturation [Mass fraction] 11.3 % Low 20-50 [facility] Leukocytes [#/volume] correc kee for nucleated erythrocytes in Blood by Automated counOrdered By: Nataly Toure on 08-03-2023 WBC corrected for nucl RBC Auto (Bld) [#/Vol] 7.2 10*3/uL 3.8-11.6 [facility] Leukocytes [#/volume] in Blo od by Automated countOrdered By: Nataly Toure on 08-03-2023 WBC (Bld) [#/Vol] 7.2 10*3/uL Normal 3.8-11.6 [facility] Comment on above: Order Comment: Reaso n for Exam Iron deficiency Performed By: #### G TT3 #### [facility] [address] Lipid Panelon 08-03-2023 LDL Cholesterol,Calculated 82 mg/dL Normal 0-100 [facility] Comment on above: Order Comment: [...] high Performed By: #### G TT3 #### [facility] [address] Triglyceride w/Reflex 140 mg/dL Normal 0-149 [facility] Comment on above: Order Comment: [...] method. Performed By: #### G TT3 #### [address] VLDL CHOLESTEROL 28 mg/dL Normal [facility] Comment on above: Order Comment: Reaso n for Exam Hypothyroidism, unspecified type;High blood triglycerides Reason for Exam Iron deficiency Reason for Exam High blood triglycerides Reason for Exam Hypothyroidism, unspecified type Performed By: #### G TT3 #### [address] Lymphocytes [#/volume] in Bl ood by Automated countOrdered By: Nataly Toure on 08-03-2023 Lymphocytes (Bld) [#/Vol] 1.6 10*3/uL Normal 1.00-4.8 [facility] Comment on above: Order Comment: Reaso n for Exam Iron deficiency Performed By: #### G TT3 #### [place] [address] [place] Lymphocytes/100 leukocytes i n Blood by Automated countOrdered By: Nataly Toure on 08-03-2023 Lymphocytes/100 WBC (Bld) 22.8 % Normal . [facility] Comment on above: Order Comment: Reaso n for Exam Iron deficiency Performed By: #### G TT3 #### [place] [address] [place] MCH [Entitic mass] by Automa kee countOrdered By: Nataly Toure on 08-03-2023 MCH (RBC) [Entitic mass] 25.8 pg Normal 24.7-34.3 [facility] Comment on above: Order Comment: Reaso n for Exam Iron deficiency Performed By: #### G TT3 #### [address] MCHC Auto (RBC) [Mass/Vol]Or dered By: Nataly Toure on 08-03-2023 MCHC (RBC) [Mass/Vol] 33.1 g/dL 32.0-35.0 [facility] MCV [Entitic volume] by Auto mated countOrdered By: Nataly Toure on 08-03-2023 MCV (RBC) [Entitic vol] 78.0 fL Low 80-100 [facility] Comment on above: Order Comment: Reaso n for Exam Iron deficiency Performed By: #### G TT3 #### [address] Neutrophils [#/volume] in Bl ood by Automated countOrdered By: Nataly Toure on 08-03-2023 Neutrophils (Bld) [#/Vol] 5.1 10*3/uL Normal 1.8-7.7 [facility] Comment on above: Order Comment: Reaso n for Exam Iron deficiency Performed By: #### G TT3 #### [address] No Panel InformationOrdered By: Nataly Toure on 08-03-2023 Estimated GFR (CKD-EPI) > 60.0 mL/Min [facility] Creatinine Clearance (Chem N/A [facility] Nucleated erythrocytes [Pres ence] in Blood by Automated countOrdered By: Nataly Toure on 08-03-2023 Nucleated RBC Auto Ql (Bld) 0.2 /100{WBC} 0-0.5 [facility] Platelet mean volume [Entiti c volume] in Blood by Automated countOrdered By: Nataly Toure on 08-03-2023 Platelet mean volume (Bld) [Entitic vol] 9.2 fL Normal 6.3-10.7 [facility] Comment on above: Order Comment: Reaso n for Exam Iron deficiency Performed By: #### G TT3 #### [facility] [address] [place] [address] [place] Platelets [#/volume] in Bloo d by Automated countOrdered By: Nataly Toure on 08-03-2023 Platelets (Bld) [#/Vol] 260 10*3/uL Normal 150-450 [facility] Comment on above: Order Comment: Reaso n for Exam Iron deficiency Performed By: #### G TT3 #### [facility] [address] [place] [address] [place] Potassium [Moles/volume] in Serum or PlasmaOrdered By: Nataly Toure on 08-03-2023 Potassium [Moles/Vol] 3.6 mmol/L Normal 3.5-5.1 [facility] Comment on above: Order Comment: Reaso n for Exam Hypothyroidism, unspecified type;High blood triglycerides Reason for Exam Iron deficiency Reason for Exam High blood triglycerides Reason for Exam Hypothyroidism, unspecified type Performed By: #### G TT3 #### [facility] [address] Protein [Mass/volume] in Ser um or PlasmaOrdered By: Nataly Toure on 08-03-2023 Protein [Mass/Vol] 7.2 g/dL Normal 6.4-8.9 [facility] Comment on above: Order Comment: Reaso n for Exam Hypothyroidism, unspecified type;High blood triglycerides Reason for Exam Iron deficiency Reason for Exam High blood triglycerides Reason for Exam Hypothyroidism, unspecified type Performed By: #### G TT3 #### [facility] [address] Serum globulin measurement b y calculation (mass/volume)Ordered By: Nataly Toure on 08-03-2023 Globulin (S) [Mass/Vol] 2.8 g/dL [facility] Comment on above: Order Comment: Reaso n for Exam Hypothyroidism, unspecified type;High blood triglycerides Reason for Exam Iron deficiency Reason for Exam High blood triglycerides Reason for Exam Hypothyroidism, unspecified type Performed By: #### G TT3 #### [facility] [address] [place] [address] [place] Serum or plasma albumin/glob ulin mass ratioOrdered By: Nataly Toure on 08-03-2023 Albumin/Globulin [Mass ratio] 1.6 {ratio} [facility] Comment on above: Order Comment: Reaso n for Exam Hypothyroidism, unspecified type;High blood triglycerides Reason for Exam Iron deficiency Reason for Exam High blood triglycerides Reason for Exam Hypothyroidism, unspecified type Performed By: #### G TT3 #### [facility] [address] [place] [id number] [facility] Serum or plasma anion gap de terminationOrdered By: Nataly Toure on 08-03-2023 Anion gap [Moles/Vol] 11.4 mmol/L Normal 6.0-15.0 [facility] Comment on above: Order Comment: Reaso n for Exam Hypothyroidism, unspecified type;High blood triglycerides Reason for Exam Iron deficiency Reason for Exam High blood triglycerides Reason for Exam Hypothyroidism, unspecified type Performed By: #### G TT3 #### [facility] [address] Serum or plasma high density lipoprotein (HDL) cholesterol measurementOrdered By: Nataly Toure on 08-03-2023 Cholesterol in HDL [Mass/Vol] 49 mg/dL Normal 23-92 [facility] Comment on above: HDL CHOL ATP-III CLA [...] HIGH Performed By: #### G TT3 #### [facility] [address] [place] [address] Serum or plasma insulin nikita urement (units/volume)Ordered By: Nataly Toure on 08-03-2023 Insulin Qn 14.1 u[iU]/mL 2.6-24.9 [facility] Comment on above: Performed at: [address] [id number] Director: Sam Lopez PhD, Phone: [phone] Serum or plasma total choles terol/high density lipoprotein (HDL) cholesterol mass ratOrdered By: Nataly Toure on 08-03-2023 Cholesterol.total/Chol esterol in HDL [Mass ratio] 3.2 {ratio} Normal <5.0 [facility] Comment on above: Order Comment: Reaso n for Exam Hypothyroidism, unspecified type;High blood triglycerides Reason for Exam Iron deficiency Reason for Exam High blood triglycerides Reason for Exam Hypothyroidism, unspecified type Performed By: #### G TT3 #### [facility] [address] [place] [address] [place] Sodium [Moles/volume] in Ser um or PlasmaOrdered By: Nataly Toure on 08-03-2023 Sodium [Moles/Vol] 140 mmol/L Normal 136-145 [facility] Comment on above: Order Comment: Reaso n for Exam Hypothyroidism, unspecified type;High blood triglycerides Reason for Exam Iron deficiency Reason for Exam High blood triglycerides Reason for Exam Hypothyroidism, unspecified type Performed By: #### G TT3 #### [facility] [address] [place] [address] Thyroid Stim Hormone w/Rflxo n 08-03-2023 Thyroid Stim Hormone w/Rflx 3.20 u[iU]/mL Normal 0.45-5.33 [facility] Comment on above: Order Comment: Reaso n for Exam Hypothyroidism, unspecified type;High blood triglycerides Reason for Exam Iron deficiency Reason for Exam High blood triglycerides Reason for Exam Hypothyroidism, unspecified type Result Comment: PERF ORMED BY: [place] [address] PATHOLOGIST GEAR LAPPING MACHINE OPERATOR ALLA OROZCO M.D. Performed By: #### G TT3 #### [address] Thyrotropin [Units/volume] i n Serum or PlasmaOrdered By: Nataly Toure on 08-03-2023 TSH Qn 3.20 m[IU]/L 0.45-5.33 [facility] Transferrin [Mass/volume] in Serum or PlasmaOrdered By: Nataly Toure on 08-03-2023 Transferrin [Mass/Vol] 273 mg/dL Normal 203-362 [facility] Comment on above: Order Comment: Reaso n for Exam Hypothyroidism, unspecified type;High blood triglycerides Reason for Exam Iron deficiency Reason for Exam High blood triglycerides Reason for Exam Hypothyroidism, unspecified type Performed By: #### G TT3 #### [facility] [address] [place] [address] [place] Triglyceride [Mass/volume] i n Serum or PlasmaOrdered By: Nataly Toure on 08-03-2023 Triglyceride [Mass/Vol] 140 mg/dL 0-149 [facility] Comment on above: TRIG ATP III CLASSIF ICATIONTRIG less than 150 mg/dL NormalTRIG 150-199 mg/dL Borderline highTRIG 200-500 mg/dL High TRIG greater than 500 mg/dL Very highStandard traceable to the Center for Disease Conrtrol and Prevention (CDC) test method. Urea nitrogen [Mass/volume] in Serum or PlasmaOrdered By: Nataly Toure on 08-03-2023 Urea nitrogen [Mass/Vol] 10 mg/dL Normal 7-25 [facility] Comment on above: Order Comment: Reaso n for Exam Hypothyroidism, unspecified type;High blood triglycerides Reason for Exam Iron deficiency Reason for Exam High blood triglycerides Reason for Exam Hypothyroidism, unspecified type Performed By: #### G TT3 #### [address] Complete Blood Count Auto Di ffon 04-15-2023 Basophils (Bld) [#/Vol] 0.0 10*3/uL Normal 0.0-0.2 [facility] Comment on above: Order Comment: Reaso n for Exam Iron deficiency Result Comment: PERF ORMED BY: [place] [address] PATHOLOGIST GEAR LAPPING MACHINE OPERATOR ALLA OROZCO M.D. Performed By: #### C BC #### [facility] [address] [place] [address] #### RPR W RFX #### [facility] , Basophils/100 WBC (Bld) 0.5 % Normal . [facility] Comment on above: Order Comment: Reaso n for Exam Iron deficiency Performed By: #### C BC #### [facility] [address] [place] [address] [place] #### RPR W RFX #### [facility] , Eosinophils (Bld) [#/Vol] 0.2 10*3/uL Normal 0.0-0.45 [facility] Comment on above: Order Comment: Reaso n for Exam Iron deficiency Performed By: #### C BC #### [address] #### RPR W RFX #### [facility] , Eosinophils/100 WBC (Bld) 3.8 % Normal . [facility] Comment on above: Order Comment: Reaso n for Exam Iron deficiency Performed By: #### C BC #### [place] [address] [place] #### RPR W RFX #### [facility] , Erythrocyte distribution width (RBC) [Ratio] 16.9 % High 11.9-15.3 [facility] Comment on above: Order Comment: Reaso n for Exam Iron deficiency Performed By: #### C BC #### [address] #### RPR W RFX #### [facility] , Hematocrit (Bld) [Volume fraction] 36.2 % Normal 34.0-46.4 [facility] Comment on above: Order Comment: Reaso n for Exam Iron deficiency Performed By: #### C BC #### [address] #### RPR W RFX #### [facility] , Hemoglobin (Bld) [Mass/Vol] 12.0 g/dL Normal 11.8-15.4 [facility] Comment on above: Order Comment: Reaso n for Exam Iron deficiency Performed By: #### C BC #### [place] [address] [place] #### RPR W RFX #### [facility] , Lymphocytes (Bld) [#/Vol] 1.6 10*3/uL Normal 1.00-4.8 [facility] Comment on above: Order Comment: Reaso n for Exam Iron deficiency Performed By: #### C BC #### [place] [address] [place] #### RPR W RFX #### [facility] , Lymphocytes/100 WBC (Bld) 28.1 % Normal . [facility] Comment on above: Order Comment: Reaso n for Exam Iron deficiency Performed By: #### C BC #### [address] #### RPR W RFX #### [facility] , MCH (RBC) [Entitic mass] 25.7 pg Normal 24.7-34.3 [facility] Comment on above: Order Comment: Reaso n for Exam Iron deficiency Performed By: #### C BC #### [facility] [address] [place] [address] #### RPR W RFX #### [facility] , MCV (RBC) [Entitic vol] 77.7 fL Low 80-100 [facility] Comment on above: Order Comment: Reaso n for Exam Iron deficiency Performed By: #### C BC #### [address] #### RPR W RFX #### [facility] , Mean Corpuscular HGB Conc 33.1 g/dL Normal 32.0-35.0 [facility] Comment on above: Order Comment: Reaso n for Exam Iron deficiency Performed By: #### C BC #### [facility] [address] [place] [address] [place] #### RPR W RFX #### [facility] , Monocytes (Bld) [#/Vol] 0.5 10*3/uL Normal 0.0-0.8 [facility] Comment on above: Order Comment: Reaso n for Exam Iron deficiency Performed By: #### C BC #### [place] [address] [place] #### RPR W RFX #### [facility] , Monocytes/100 WBC (Bld) 9.0 % Normal . [facility] Comment on above: Order Comment: Reaso n for Exam Iron deficiency Performed By: #### C BC #### [place] [address] [place] #### RPR W RFX #### [facility] , Neutrophils (Bld) [#/Vol] 3.3 10*3/uL Normal 1.8-7.7 [facility] Comment on above: Order Comment: Reaso n for Exam Iron deficiency Performed By: #### C BC #### [address] #### RPR W RFX #### [facility] , Neutrophils/100 WBC (Bld) 58.6 % Normal . [facility] Comment on above: Order Comment: Reaso n for Exam Iron deficiency Performed By: #### C BC #### [address] #### RPR W RFX #### [facility] , NRBC% 0.1 /100{WBC} Normal 0-0.5 [facility] Comment on above: Order Comment: Reaso n for Exam Iron deficiency Performed By: #### C BC #### [address] #### RPR W RFX #### [facility] , Platelet mean volume (Bld) [Entitic vol] 9.1 fL Normal 6.3-10.7 [facility] Comment on above: Order Comment: Reaso n for Exam Iron deficiency Performed By: #### C BC #### [facility] [address] [place] [address] [place] #### RPR W RFX #### [facility] , Platelets (Bld) [#/Vol] 220 10*3/uL Normal 150-450 [facility] Comment on above: Order Comment: Reaso n for Exam Iron deficiency Performed By: #### C BC #### [facility] [address] #### RPR W RFX #### [facility] , RBC (Bld) [#/Vol] 4.66 10*6/uL Normal 3.60-5.00 [facility] Comment on above: Order Comment: Reaso n for Exam Iron deficiency Performed By: #### C BC #### [address] #### RPR W RFX #### [facility] , WBC (Bld) [#/Vol] 5.6 10*3/uL Normal 3.8-11.6 [facility] Comment on above: Order Comment: Reaso n for Exam Iron deficiency Performed By: #### C BC #### [address] #### RPR W RFX #### [facility] , Comprehensive Metabolic Pane ramakrishna 04-15-2023 Albumin [Mass/Vol] 4.1 g/dL Normal 3.5-5.7 [facility] Comment on above: Order Comment: Reaso n for Exam Iron deficiency Reason for Exam High blood triglycerides Performed By: #### C BC #### [address] #### RPR W RFX #### [facility] , Albumin/Globulin [Mass ratio] 1.4 {ratio} Normal [facility] Comment on above: Order Comment: Reaso n for Exam Iron deficiency Reason for Exam High blood triglycerides Performed By: #### C BC #### [facility] [address] [place] [address] [place] #### RPR W RFX #### [facility] , ALP [Catalytic activity/Vol] 89 U/L Normal 34-104 [facility] Comment on above: Order Comment: Reaso n for Exam Iron deficiency Reason for Exam High blood triglycerides Performed By: #### C BC #### [place] [address] [place] #### RPR W RFX #### [facility] , ALT [Catalytic activity/Vol] 14 U/L Normal 7-52 [facility] Comment on above: Order Comment: Reaso n for Exam Iron deficiency Reason for Exam High blood triglycerides Performed By: #### C BC #### [facility] [address] [place] [address] #### RPR W RFX #### [facility] , Anion gap [Moles/Vol] 10.2 mmol/L Normal 6.0-15.0 [facility] Comment on above: Order Comment: Reaso n for Exam Iron deficiency Reason for Exam High blood triglycerides Performed By: #### C BC #### [facility] [address] [place] [address] #### RPR W RFX #### [facility] , AST [Catalytic activity/Vol] 13 U/L Normal 13-39 [facility] Comment on above: Order Comment: Reaso n for Exam Iron deficiency Reason for Exam High blood triglycerides Performed By: #### C BC #### [facility] [address] [place] [address] #### RPR W RFX #### [facility] , Bilirubin [Mass/Vol] 0.3 mg/dL Normal 0.3-1.0 [facility] Comment on above: Order Comment: Reaso n for Exam Iron deficiency Reason for Exam High blood triglycerides Performed By: #### C BC #### [facility] [address] [place] [address] #### RPR W RFX #### [facility] , Calcium [Mass/Vol] 9.0 mg/dL Normal 8.6-10.3 [facility] Comment on above: Order Comment: Reaso n for Exam Iron deficiency Reason for Exam High blood triglycerides Performed By: #### C BC #### [facility] [address] [place] [address] #### RPR W RFX #### [facility] , Chloride [Moles/Vol] 105 mmol/L Normal 98-107 [facility] Comment on above: Order Comment: Reaso n for Exam Iron deficiency Reason for Exam High blood triglycerides Performed By: #### C BC #### [facility] [address] [place] [address] #### RPR W RFX #### [facility] , CO2 [Moles/Vol] 27.9 mmol/L Normal 21.0-31.0 [facility] Comment on above: Order Comment: Reaso n for Exam Iron deficiency Reason for Exam High blood triglycerides Performed By: #### C BC #### [facility] [address] [place] [address] [place] #### RPR W RFX #### [facility] , Creatinine [Mass/Vol] 0.69 mg/dL Normal 0.60-1.20 [facility] Comment on above: Order Comment: Reaso n for Exam Iron deficiency Reason for Exam High blood triglycerides Performed By: #### C BC #### [facility] [address] [place] [address] #### RPR W RFX #### [facility] , GFR/1.73 sq M.predicted MDRD (S/P/Bld) [Vol rate/Area] mL/min/{1.73_m2} Normal [facility] Comment on above: Order Comment: Reaso n for Exam Iron deficiency Reason for Exam High blood triglycerides Performed By: #### C BC #### [facility] [address] [place] [address] [place] #### RPR W RFX #### [facility] , Globulin (S) [Mass/Vol] 2.9 g/dL Normal [facility] Comment on above: Order Comment: Reaso n for Exam Iron deficiency Reason for Exam High blood triglycerides Performed By: #### C BC #### [facility] [address] [place] [address] [place] #### RPR W RFX #### [facility] , Glucose [Mass/Vol] 103 mg/dL High 70-100 [facility] Comment on above: Order Comment: Reaso n for Exam Iron deficiency Reason for Exam High blood triglycerides Result Comment: [place] Glucose Reference Range is dependent on time and content of last meal. Glucose of more than 200 mg/dL in a nonstressed, ambulatory subject supports the diagnosis of Diabetes Mellitus. ADA recommended reference range Performed By: #### C BC #### [facility] [address] [place] [address] [place] #### RPR W RFX #### [facility] , Potassium [Moles/Vol] 4.1 mmol/L Normal 3.5-5.1 [facility] Comment on above: Order Comment: Reaso n for Exam Iron deficiency Reason for Exam High blood triglycerides Performed By: #### C BC #### [place] [address] [place] #### RPR W RFX #### [facility] , Protein [Mass/Vol] 7.0 g/dL Normal 6.4-8.9 [facility] Comment on above: Order Comment: Reaso n for Exam Iron deficiency Reason for Exam High blood triglycerides Performed By: #### C BC #### [place] [address] [place] #### RPR W RFX #### [facility] , Sodium [Moles/Vol] 139 mmol/L Normal 136-145 [facility] Comment on above: Order Comment: Reaso n for Exam Iron deficiency Reason for Exam High blood triglycerides Performed By: #### C BC #### [facility] [address] [place] [address] [place] #### RPR W RFX #### [facility] , Urea nitrogen [Mass/Vol] 12 mg/dL Normal 7-25 [facility] Comment on above: Order Comment: Reaso n for Exam Iron deficiency Reason for Exam High blood triglycerides Performed By: #### C BC #### [place] [address] [place] #### RPR W RFX #### [facility] , Iron and TIBC Profileon 03-19 % Iron Saturation 8.6 % Low 20-50 [facility] Comment on above: Order Comment: Reaso n for Exam Iron deficiency Reason for Exam High blood triglycerides Performed By: #### C BC #### [facility] [address] [place] [address] [place] #### RPR W RFX #### [facility] , Iron [Mass/Vol] 28 ug/dL Low 50-212 [facility] Comment on above: Order Comment: Reaso n for Exam Iron deficiency Reason for Exam High blood triglycerides Performed By: #### C BC #### [facility] [address] [place] [address] #### RPR W RFX #### [facility] , Total Iron Binding Capacity 326 ug/dL Normal 255-450 [facility] Comment on above: Order Comment: Reaso n for Exam Iron deficiency Reason for Exam High blood triglycerides Performed By: #### C BC #### [facility] [address] [place] [address] #### RPR W RFX #### [facility] , Transferrin [Mass/Vol] 233 mg/dL Normal 203-362 [facility] Comment on above: Order Comment: Reaso n for Exam Iron deficiency Reason for Exam High blood triglycerides Performed By: #### C BC #### [facility] [address] [place] [address] [place] #### RPR W RFX #### [facility] , Lipid Panelon 04-15-2023 Cholesterol [Mass/Vol] 131 mg/dL Low 140-200 [facility] Comment on above: Order Comment: Reaso n for Exam Iron deficiency Reason for Exam High blood triglycerides Result Comment: Chol less than 200 mg/dl low risk Chol 201-239 mg/dl borderline risk Chol 240 mg/dl and greater high risk Performed By: #### C BC #### [place] [address] [place] #### RPR W RFX #### [facility] , Cholesterol in HDL [Mass/Vol] 39 mg/dL Normal 23-92 [facility] Comment on above: Order Comment: Reaso n for Exam Iron deficiency Reason for Exam High blood triglycerides Result Comment: HDL CHOL ATP-III CLASSIFICATION Cardiovascular Risk HDL > or equal to 60 mg/dL LOW HDL < 40 mg/dL HIGH Performed By: #### C BC #### [address] #### RPR W RFX #### [facility] , Cholesterol.total/Chol esterol in HDL [Mass ratio] 3.4 {ratio} Normal <5.0 [facility] Comment on above: Order Comment: Reaso n for Exam Iron deficiency Reason for Exam High blood triglycerides Result Comment: PERF ORMED BY: [place] [address] PATHOLOGIST GEAR LAPPING MACHINE OPERATOR ALLA OROZCO M.D. Performed By: #### C BC #### [address] #### RPR W RFX #### [facility] , LDL Cholesterol,Calculated 58 mg/dL Normal 0-100 [facility] Comment on above: Order Comment: Reaso n for Exam Iron deficiency Reason for Exam High blood triglycerides Result Comment: LDL ATP III CLASSIFICATION LDL less than 100 mg/dL Optimal LDL 100-129 mg/dL Near or above optimal LDL 130-159 mg/dL Borderline high LDL 160-189 mg/dL High LDL greater than 189 mg/dL Very high Performed By: #### C BC #### [place] [address] [place] #### RPR W RFX #### [facility] , Triglyceride w/Reflex 170 mg/dL High 0-149 [facility] Comment on above: Order Comment: [...] method. Performed By: #### C BC #### [address] #### RPR W RFX #### [facility] , VLDL CHOLESTEROL 34 mg/dL Normal [facility] Comment on above: Order Comment: Reaso n for Exam Iron deficiency Reason for Exam High blood triglycerides Performed By: #### C BC #### [address] #### RPR W RFX #### [facility] , A1C with Estimated Average G luon 03-17-2023 Glucose [Mass/Vol] 114 mg/dL Normal [facility] Comment on above: Order Comment: Name Collection Type:: Clean-Voided Midstream Result Comment: PERF ORMED BY: [place] [address] PATHOLOGIST GEAR LAPPING MACHINE OPERATOR ALLA OROZCO M.D. Performed By: #### A DDONUALETICIA, [facility] #### [address] Glucose mean value [Mass/vol ume] in Blood Estimated from glycated hemoglobinOrdered By: Nataly Toure on 03-17-2023 Average glucose Estimated from glycated hemoglobin (Bld) [Mass/Vol] 114 mg/dL [facility] Hemoglobin A1c percentageOrd ered By: Nataly Toure on 03-17-2023 HbA1c (Bld) [Mass fraction] 5.6 % Normal 4.3-5.6 [facility] Comment on above: Increased risk for d iabetes: 5.7 - 6.4diabetes: >6.4glycemic control for adults with diabetes: <7.0 Order Comment: Name Collection Type:: Clean-Voided Midstream Result Comment: Incr eased risk for diabetes: 5.7 - 6.4 diabetes: >6.4 glycemic control for adults with diabetes: <7.0 Performed By: #### A DDONUAPLUS, [facility] #### [address] Insulinon 03-17-2023 Insulin 105.0 u[iU]/mL High 2.6-24.9 [facility] Comment on above: Order Comment: Name Collection Type:: Clean-Voided Midstream Result Comment: Perf ormed at: - [facility] [address] [id number] Cryptologic Supervisor: Sam Lopez PhD, Phone: [phone] PERFORMED BY: [place] [address] PATHOLOGIST GEAR LAPPING MACHINE OPERATOR ALLA OROZCO M.D. Performed By: #### A JOSE, [facility] #### [address] Alanine aminotransferase [En zymatic activity/volume] in Serum or PlasmaOrdered By: Nataly Toure on 03-04-2023 ALT [Catalytic activity/Vol] 12 U/L Normal 7-52 [facility] Comment on above: Order Comment: Reaso n for Exam Obesity, unspecified;High blood triglycerides Reason for Exam Iron deficiency Reason for Exam High blood triglycerides Reason for Exam Hypothyroidism, unspecified type Performed By: #### C BC #### [address] #### RPR W RFX #### [facility] , Albumin [Mass/volume] in Ser um or Plasma by Bromocresol green (BCG) dye binding methoOrdered By: Nataly Toure on 03-04-2023 Albumin BCG dye [Mass/Vol] 3.7 g/dL 3.5-5.7 [facility] Alkaline phosphatase [Enzyma tic activity/volume] in Serum or PlasmaOrdered By: Nataly Toure on 03-04-2023 ALP [Catalytic activity/Vol] 100 U/L Normal 34-104 [facility] Comment on above: Order Comment: Reaso n for Exam Obesity, unspecified;High blood triglycerides Reason for Exam Iron deficiency Reason for Exam High blood triglycerides Reason for Exam Hypothyroidism, unspecified type Performed By: #### C BC #### [facility] [address] [place] [address] [place] #### RPR W RFX #### [facility] , Aspartate aminotransferase [ Enzymatic activity/volume] in Serum or PlasmaOrdered By: Nataly Toure on 03-04-2023 AST [Catalytic activity/Vol] 12 U/L Low 13-39 [facility] Comment on above: Order Comment: Reaso n for Exam Obesity, unspecified;High blood triglycerides Reason for Exam Iron deficiency Reason for Exam High blood triglycerides Reason for Exam Hypothyroidism, unspecified type Performed By: #### C BC #### [facility] [address] [place] [address] [place] #### RPR W RFX #### [facility] , Automated basophil %Ordered By: Nataly Toure on 03-04-2023 Basophils/100 WBC (Bld) 1.0 % Normal . [facility] Comment on above: Order Comment: Reaso n for Exam Obesity, unspecified;High blood triglycerides Performed By: #### C BC #### [facility] [address] [place] [address] #### RPR W RFX #### [facility] , Automated basophil countOrde red By: Nataly Toure on 03-04-2023 Basophils (Bld) [#/Vol] 0.1 10*3/uL Normal 0.0-0.2 [facility] Comment on above: Order Comment: Reaso n for Exam Obesity, unspecified;High blood triglycerides Result Comment: PERF ORMED BY: [place] [address] PATHOLOGIST GEAR LAPPING MACHINE OPERATOR ALLA OROZCO M.D. Performed By: #### C BC #### [facility] [address] [place] [address] #### RPR W RFX #### [facility] , Automated blood monocyte cou ntOrdered By: Nataly Toure on 03-04-2023 Monocytes (Bld) [#/Vol] 0.6 10*3/uL Normal 0.0-0.8 [facility] Comment on above: Order Comment: Reaso n for Exam Obesity, unspecified;High blood triglycerides Performed By: #### C BC #### [address] #### RPR W RFX #### [facility] , Automated eosinophil %Ordere d By: Nataly Toure on 03-04-2023 Eosinophils/100 WBC (Bld) 2.0 % Normal . [facility] Comment on above: Order Comment: Reaso n for Exam Obesity, unspecified;High blood triglycerides Performed By: #### C BC #### [place] [address] [place] #### RPR W RFX #### [facility] , Automated eosinophil countOr dered By: Nataly Toure on 03-04-2023 Eosinophils (Bld) [#/Vol] 0.1 10*3/uL Normal 0.0-0.45 [facility] Comment on above: Order Comment: Reaso n for Exam Obesity, unspecified;High blood triglycerides Performed By: #### C BC #### [place] [address] [place] #### RPR W RFX #### [facility] , Automated monocyte %Ordered By: Nataly Toure on 03-04-2023 Monocytes/100 WBC (Bld) 9.2 % Normal . [facility] Comment on above: Order Comment: Reaso n for Exam Obesity, unspecified;High blood triglycerides Performed By: #### C BC #### [facility] [address] [place] [address] [place] #### RPR W RFX #### [facility] , Automated neutrophil %Ordere d By: Nataly Toure on 03-04-2023 Neutrophils/100 WBC (Bld) 58.4 % Normal . [facility] Comment on above: Order Comment: Reaso n for Exam Obesity, unspecified;High blood triglycerides Performed By: #### C BC #### [facility] [address] [place] [address] #### RPR W RFX #### [facility] , Bilirubin.total [Mass/volume ] in Serum or PlasmaOrdered By: Nataly Toure on 03-04-2023 Bilirubin [Mass/Vol] 0.3 mg/dL Normal 0.3-1.0 [facility] Comment on above: Order Comment: Reaso n for Exam Obesity, unspecified;High blood triglycerides Reason for Exam Iron deficiency Reason for Exam High blood triglycerides Reason for Exam Hypothyroidism, unspecified type Performed By: #### C BC #### [facility] [address] [place] [address] #### RPR W RFX #### [facility] , Calcium [Mass/volume] in Ser um or PlasmaOrdered By: Nataly Toure on 03-04-2023 Calcium [Mass/Vol] 8.9 mg/dL Normal 8.6-10.3 [facility] Comment on above: Order Comment: Reaso n for Exam Obesity, unspecified;High blood triglycerides Reason for Exam Iron deficiency Reason for Exam High blood triglycerides Reason for Exam Hypothyroidism, unspecified type Performed By: #### C BC #### [facility] [address] [place] [address] #### RPR W RFX #### [facility] , Carbon dioxide, total [Moles /volume] in Serum or PlasmaOrdered By: Nataly Toure on 03-04-2023 CO2 [Moles/Vol] 26.6 mmol/L Normal 21.0-31.0 [facility] Comment on above: Order Comment: Reaso n for Exam Obesity, unspecified;High blood triglycerides Reason for Exam Iron deficiency Reason for Exam High blood triglycerides Reason for Exam Hypothyroidism, unspecified type Performed By: #### C BC #### [facility] [address] [place] [address] [place] #### RPR W RFX #### [facility] , Chloride [Moles/volume] in S rosa or PlasmaOrdered By: Nataly Toure on 03-04-2023 Chloride [Moles/Vol] 105 mmol/L Normal 98-107 [facility] Comment on above: Order Comment: Reaso n for Exam Obesity, unspecified;High blood triglycerides Reason for Exam Iron deficiency Reason for Exam High blood triglycerides Reason for Exam Hypothyroidism, unspecified type Performed By: #### C BC #### [facility] [address] [place] [address] [place] #### RPR W RFX #### [facility] , Cholesterol [Mass/volume] in Serum or PlasmaOrdered By: Nataly Toure on 03-04-2023 Cholesterol [Mass/Vol] 231 mg/dL High 140-200 [facility] Comment on above: Chol less than [...] risk Performed By: #### C BC #### [facility] [address] [place] [address] [place] #### RPR W RFX #### [facility] , Cholesterol in LDL Calc [Mas s/Vol]Ordered By: Nataly Toure on 03-04-2023 Cholesterol in LDL [Mass/Vol] [facility] Comment on above: Test not performed Cholesterol in LDL [Mass/vol ume] in Serum or PlasmaOrdered By: Nataly Toure on 03-04-2023 Cholesterol in LDL [Mass/Vol] 81 mg/dL 0-100 [facility] Comment on above: LDL ATP III CLASSIFI CATIONLDL less than 100 mg/dL OptimalLDL 100-129 mg/dL Near or above optimalLDL 130-159 mg/dL Borderline highLDL 160-189 mg/dL HighLDL greater than 189 mg/dL Very high Cholesterol in VLDL Calc [Ma ss/Vol]Ordered By: Nataly Toure on 03-04-2023 Cholesterol in VLDL [Mass/Vol] 172 mg/dL [facility] Complete Blood Count Auto Di ffon 03-04-2023 Mean Corpuscular HGB Conc 32.7 g/dL Normal 32.0-35.0 [facility] Comment on above: Order Comment: Reaso n for Exam Obesity, unspecified;High blood triglycerides Performed By: #### C BC #### [facility] [address] [place] [address] [place] #### RPR W RFX #### [facility] , NRBC% 0.1 /100{WBC} Normal 0-0.5 [facility] Comment on above: Order Comment: Reaso n for Exam Obesity, unspecified;High blood triglycerides Performed By: #### C BC #### [address] #### RPR W RFX #### [facility] , Comprehensive Metabolic Pane ramakrishna 03-04-2023 Albumin [Mass/Vol] 3.7 g/dL Normal 3.5-5.7 [facility] Comment on above: Order Comment: Reaso n for Exam Obesity, unspecified;High blood triglycerides Reason for Exam Iron deficiency Reason for Exam High blood triglycerides Reason for Exam Hypothyroidism, unspecified type Performed By: #### C BC #### [place] [address] [place] #### RPR W RFX #### [facility] , GFR/1.73 sq M.predicted MDRD (S/P/Bld) [Vol rate/Area] mL/min/{1.73_m2} Normal [facility] Comment on above: Order Comment: Reaso n for Exam Obesity, unspecified;High blood triglycerides Reason for Exam Iron deficiency Reason for Exam High blood triglycerides Reason for Exam Hypothyroidism, unspecified type Performed By: #### C BC #### [facility] [address] [place] [address] [place] #### RPR W RFX #### [facility] , Creatinine [Mass/volume] in Serum or PlasmaOrdered By: Nataly Toure on 03-04-2023 Creatinine [Mass/Vol] 0.72 mg/dL Normal 0.60-1.20 [facility] Comment on above: Order Comment: Reaso n for Exam Obesity, unspecified;High blood triglycerides Reason for Exam Iron deficiency Reason for Exam High blood triglycerides Reason for Exam Hypothyroidism, unspecified type Performed By: #### C BC #### [facility] [address] [place] [address] [place] #### RPR W RFX #### [facility] , Erythrocyte distribution wid th [Ratio] by Automated countOrdered By: Nataly Toure on 03-04-2023 Erythrocyte distribution width (RBC) [Ratio] 16.0 % High 11.9-15.3 [facility] Comment on above: Order Comment: Reaso n for Exam Obesity, unspecified;High blood triglycerides Performed By: #### C BC #### [place] [address] [place] #### RPR W RFX #### [facility] , Erythrocytes [#/volume] in B lood by Automated countOrdered By: Nataly Toure on 03-04-2023 RBC (Bld) [#/Vol] 4.52 10*6/uL Normal 3.60-5.00 [facility] Comment on above: Order Comment: Reaso n for Exam Obesity, unspecified;High blood triglycerides Performed By: #### C BC #### [facility] [address] [place] [address] [place] #### RPR W RFX #### [facility] , Ferritin [Mass/volume] in Se rum or PlasmaOrdered By: Nataly Toure on 03-04-2023 Ferritin [Mass/Vol] 18.9 ng/mL Normal 11.0-306.8 [facility] Comment on above: Order Comment: Reaso n for Exam Obesity, unspecified;High blood triglycerides Reason for Exam Iron deficiency Reason for Exam High blood triglycerides Reason for Exam Hypothyroidism, unspecified type Performed By: #### C BC #### [place] [address] [place] #### RPR W RFX #### [facility] , Glucose [Mass/volume] in Ser um or PlasmaOrdered By: Nataly Toure on 03-04-2023 Glucose [Mass/Vol] 95 mg/dL Normal 70-100 [facility] Comment on above: ADA recommended [...] for Exam Hypothyroidism, unspecified type Result Comment: [place] om Glucose Reference Range is dependent on time and content of last meal. Glucose of more than 200 mg/dL in a nonstressed, ambulatory subject supports the diagnosis of Diabetes Mellitus. ADA recommended reference range Performed By: #### C BC #### [place] [address] [place] #### RPR W RFX #### [facility] , Hematocrit [Volume Fraction] of Blood by Automated countOrdered By: Nataly Toure on 03-04-2023 Hematocrit (Bld) [Volume fraction] 34.7 % Normal 34.0-46.4 [facility] Comment on above: Order Comment: Reaso n for Exam Obesity, unspecified;High blood triglycerides Performed By: #### C BC #### [place] [address] [place] #### RPR W RFX #### [facility] , Hemoglobin [Mass/volume] in BloodOrdered By: Nataly Toure on 03-04-2023 Hemoglobin (Bld) [Mass/Vol] 11.3 g/dL Low 11.8-15.4 [facility] Comment on above: Order Comment: Reaso n for Exam Obesity, unspecified;High blood triglycerides Performed By: #### C BC #### [address] [place] [address] [place] #### RPR W RFX #### [facility] , Iron [Mass/volume] in Serum or PlasmaOrdered By: Nataly Toure on 03-04-2023 Iron [Mass/Vol] 43 ug/dL Low 50-212 [facility] Comment on above: Order Comment: Reaso n for Exam Obesity, unspecified;High blood triglycerides Reason for Exam Iron deficiency Reason for Exam High blood triglycerides Reason for Exam Hypothyroidism, unspecified type Performed By: #### C BC #### [facility] [address] [place] [address] [place] #### RPR W RFX #### [facility] , Iron and TIBC Profileon 02-15 % Iron Saturation 11.5 % Low 20-50 [facility] Comment on above: Order Comment: Reaso n for Exam Obesity, unspecified;High blood triglycerides Reason for Exam Iron deficiency Reason for Exam High blood triglycerides Reason for Exam Hypothyroidism, unspecified type Performed By: #### C BC #### [facility] [address] [place] [address] [place] #### RPR W RFX #### [facility] , Total Iron Binding Capacity 375 ug/dL Normal 255-450 [facility] Comment on above: Order Comment: Reaso n for Exam Obesity, unspecified;High blood triglycerides Reason for Exam Iron deficiency Reason for Exam High blood triglycerides Reason for Exam Hypothyroidism, unspecified type Performed By: #### C BC #### [facility] [address] [place] [address] [place] #### RPR W RFX #### [facility] , Iron binding capacity [Mass/ volume] in Serum or PlasmaOrdered By: Nataly Toure on 03-04-2023 Iron binding capacity [Mass/Vol] 375 ug/dL 255-450 [facility] Iron saturation [Mass Fracti on] in Serum or PlasmaOrdered By: Nataly Toure on 03-04-2023 Iron saturation [Mass fraction] 11.5 % 20-50 [facility] LDL Cholesterol Measuredon 0 03-04-2023 LDL Cholesterol Measured 81 mg/dL Normal 0-100 [facility] Comment on above: Order Comment: [...] high Performed By: #### C USTB #### [facility] [address] [place] [address] Leukocytes [#/volume] correc kee for nucleated erythrocytes in Blood by Automated counOrdered By: Nataly Toure on 03-04-2023 WBC corrected for nucl RBC Auto (Bld) [#/Vol] 6.2 10*3/uL 3.8-11.6 [facility] Leukocytes [#/volume] in Blo od by Automated countOrdered By: Nataly Toure on 03-04-2023 WBC (Bld) [#/Vol] 6.2 10*3/uL Normal 3.8-11.6 [facility] Comment on above: Order Comment: Reaso n for Exam Obesity, unspecified;High blood triglycerides Performed By: #### C BC #### [facility] [address] [place] [address] [place] #### RPR W RFX #### [facility] , Lipid Panelon 03-04-2023 LDL Cholesterol,Calculated Not performed Normal 0-100 [facility] Comment on above: Order Comment: Reaso n for Exam Obesity, unspecified;High blood triglycerides Reason for Exam Iron deficiency Reason for Exam High blood triglycerides Reason for Exam Hypothyroidism, unspecified type Performed By: #### C BC #### [facility] [address] [place] [address] [place] #### RPR W RFX #### [facility] , Triglyceride w/Reflex 863 mg/dL High 0-149 [facility] Comment on above: Order Comment: [...] resulted. Performed By: #### C BC #### [place] [address] [place] #### RPR W RFX #### [facility] , VLDL CHOLESTEROL 172 mg/dL Normal [facility] Comment on above: Order Comment: Reaso n for Exam Obesity, unspecified;High blood triglycerides Reason for Exam Iron deficiency Reason for Exam High blood triglycerides Reason for Exam Hypothyroidism, unspecified type Performed By: #### C BC #### [place] [address] [place] #### RPR W RFX #### [facility] , Lymphocytes [#/volume] in Bl ood by Automated countOrdered By: Nataly Toure on 03-04-2023 Lymphocytes (Bld) [#/Vol] 1.8 10*3/uL Normal 1.00-4.8 [facility] Comment on above: Order Comment: Reaso n for Exam Obesity, unspecified;High blood triglycerides Performed By: #### C BC #### [place] [address] [place] #### RPR W RFX #### [facility] , Lymphocytes/100 leukocytes i n Blood by Automated countOrdered By: Nataly Toure on 03-04-2023 Lymphocytes/100 WBC (Bld) 29.4 % Normal . [facility] Comment on above: Order Comment: Reaso n for Exam Obesity, unspecified;High blood triglycerides Performed By: #### C BC #### [place] [address] [place] #### RPR W RFX #### [facility] , MCH [Entitic mass] by Automa kee countOrdered By: Nataly Toure on 03-04-2023 MCH (RBC) [Entitic mass] 25.1 pg Normal 24.7-34.3 [facility] Comment on above: Order Comment: Reaso n for Exam Obesity, unspecified;High blood triglycerides Performed By: #### C BC #### [facility] [address] [place] [address] [place] #### RPR W RFX #### [facility] , MCHC Auto (RBC) [Mass/Vol]Or dered By: Nataly Toure on 03-04-2023 MCHC (RBC) [Mass/Vol] 32.7 g/dL 32.0-35.0 [facility] MCV [Entitic volume] by Auto mated countOrdered By: Nataly Toure on 03-04-2023 MCV (RBC) [Entitic vol] 76.7 fL Low 80-100 [facility] Comment on above: Order Comment: Reaso n for Exam Obesity, unspecified;High blood triglycerides Performed By: #### C BC #### [facility] [address] [place] [address] [place] #### RPR W RFX #### [facility] , Neutrophils [#/volume] in Bl ood by Automated countOrdered By: Nataly Toure on 03-04-2023 Neutrophils (Bld) [#/Vol] 3.6 10*3/uL Normal 1.8-7.7 [facility] Comment on above: Order Comment: Reaso n for Exam Obesity, unspecified;High blood triglycerides Performed By: #### C BC #### [facility] [address] [place] [address] [place] #### RPR W RFX #### [facility] , No Panel InformationOrdered By: Nataly Toure on 03-04-2023 Estimated GFR (CKD-EPI) > 60.0 mL/Min [facility] Creatinine Clearance (Chem N/A [facility] Nucleated erythrocytes [Pres ence] in Blood by Automated countOrdered By: Nataly Toure on 03-04-2023 Nucleated RBC Auto Ql (Bld) 0.1 /100{WBC} 0-0.5 [facility] Platelet mean volume [Entiti c volume] in Blood by Automated countOrdered By: Nataly Toure on 03-04-2023 Platelet mean volume (Bld) [Entitic vol] 9.8 fL Normal 6.3-10.7 [facility] Comment on above: Order Comment: Reaso n for Exam Obesity, unspecified;High blood triglycerides Performed By: #### C BC #### [facility] [address] [place] [address] #### RPR W RFX #### [facility] , Platelets [#/volume] in Bloo d by Automated countOrdered By: Nataly Toure on 03-04-2023 Platelets (Bld) [#/Vol] 217 10*3/uL Normal 150-450 [facility] Comment on above: Order Comment: Reaso n for Exam Obesity, unspecified;High blood triglycerides Performed By: #### C BC #### [facility] [address] [place] [address] [place] #### RPR W RFX #### [facility] , Potassium [Moles/volume] in Serum or PlasmaOrdered By: Nataly Toure on 03-04-2023 Potassium [Moles/Vol] 3.8 mmol/L Normal 3.5-5.1 [facility] Comment on above: Order Comment: Reaso n for Exam Obesity, unspecified;High blood triglycerides Reason for Exam Iron deficiency Reason for Exam High blood triglycerides Reason for Exam Hypothyroidism, unspecified type Performed By: #### C BC #### [facility] [address] [place] [address] [place] #### RPR W RFX #### [facility] , Protein [Mass/volume] in Ser um or PlasmaOrdered By: Nataly Toure on 03-04-2023 Protein [Mass/Vol] 6.4 g/dL Normal 6.4-8.9 [facility] Comment on above: Order Comment: Reaso n for Exam Obesity, unspecified;High blood triglycerides Reason for Exam Iron deficiency Reason for Exam High blood triglycerides Reason for Exam Hypothyroidism, unspecified type Performed By: #### C BC #### [facility] [address] [place] [address] #### RPR W RFX #### [facility] , Serum globulin measurement b y calculation (mass/volume)Ordered By: Nataly Toure on 03-04-2023 Globulin (S) [Mass/Vol] 2.7 g/dL [facility] Comment on above: Order Comment: Reaso n for Exam Obesity, unspecified;High blood triglycerides Reason for Exam Iron deficiency Reason for Exam High blood triglycerides Reason for Exam Hypothyroidism, unspecified type Performed By: #### C BC #### [facility] [address] [place] [address] #### RPR W RFX #### [facility] , Serum or plasma albumin/glob ulin mass ratioOrdered By: Nataly Toure on 03-04-2023 Albumin/Globulin [Mass ratio] 1.4 {ratio} [facility] Comment on above: Order Comment: Reaso n for Exam Obesity, unspecified;High blood triglycerides Reason for Exam Iron deficiency Reason for Exam High blood triglycerides Reason for Exam Hypothyroidism, unspecified type Performed By: #### C BC #### [facility] [address] [place] [address] [place] #### RPR W RFX #### [facility] , Serum or plasma anion gap de terminationOrdered By: Nataly Toure on 03-04-2023 Anion gap [Moles/Vol] 11.2 mmol/L Normal 6.0-15.0 [facility] Comment on above: Order Comment: Reaso n for Exam Obesity, unspecified;High blood triglycerides Reason for Exam Iron deficiency Reason for Exam High blood triglycerides Reason for Exam Hypothyroidism, unspecified type Performed By: #### C BC #### [facility] [address] [place] [address] [place] #### RPR W RFX #### [facility] , Serum or plasma high density lipoprotein (HDL) cholesterol measurementOrdered By: Nataly Toure on 03-04-2023 Cholesterol in HDL [Mass/Vol] 35 mg/dL Normal 23-92 [facility] Comment on above: HDL CHOL ATP-III CLA [...] HIGH Performed By: #### C BC #### [facility] [address] [place] [address] #### RPR W RFX #### [facility] , Serum or plasma total choles terol/high density lipoprotein (HDL) cholesterol mass ratOrdered By: Nataly Toure on 03-04-2023 Cholesterol.total/Chol esterol in HDL [Mass ratio] 6.6 {ratio} Normal <5.0 [facility] Comment on above: Order Comment: Reaso n for Exam Obesity, unspecified;High blood triglycerides Reason for Exam Iron deficiency Reason for Exam High blood triglycerides Reason for Exam Hypothyroidism, unspecified type Performed By: #### C BC #### [facility] [address] [place] [address] [place] #### RPR W RFX #### [facility] , Sodium [Moles/volume] in Ser um or PlasmaOrdered By: Nataly Toure on 03-04-2023 Sodium [Moles/Vol] 139 mmol/L Normal 136-145 [facility] Comment on above: Order Comment: Reaso n for Exam Obesity, unspecified;High blood triglycerides Reason for Exam Iron deficiency Reason for Exam High blood triglycerides Reason for Exam Hypothyroidism, unspecified type Performed By: #### C BC #### [facility] [address] [place] [address] [place] #### RPR W RFX #### [facility] , Thyroid Stim Hormone w/Rflxo n 03-04-2023 Thyroid Stim Hormone w/Rflx 1.50 u[iU]/mL Normal 0.45-5.33 [facility] Comment on above: Order Comment: Reaso n for Exam Obesity, unspecified;High blood triglycerides Reason for Exam Iron deficiency Reason for Exam High blood triglycerides Reason for Exam Hypothyroidism, unspecified type Result Comment: PERF ORMED BY: [place] [address] PATHOLOGIST GEAR LAPPING MACHINE OPERATOR ALLA OROZCO M.D. Performed By: #### C USTB #### [facility] [address] [place] [address] Thyrotropin [Units/volume] i n Serum or PlasmaOrdered By: Nataly Toure on 03-04-2023 TSH Qn 1.50 m[IU]/L 0.45-5.33 [facility] Transferrin [Mass/volume] in Serum or PlasmaOrdered By: Nataly Toure on 03-04-2023 Transferrin [Mass/Vol] 268 mg/dL Normal 203-362 [facility] Comment on above: Order Comment: Reaso n for Exam Obesity, unspecified;High blood triglycerides Reason for Exam Iron deficiency Reason for Exam High blood triglycerides Reason for Exam Hypothyroidism, unspecified type Performed By: #### C BC #### [facility] [address] [place] [address] #### RPR W RFX #### [facility] , Triglyceride [Mass/volume] i n Serum or PlasmaOrdered By: Nataly Toure on 03-04-2023 Triglyceride [Mass/Vol] 863 mg/dL 0-149 [facility] Comment on above: If the triglyceride result [...] Urea nitrogen [Mass/Vol] 11 mg/dL Normal 7-25 [facility] Comment on above: Order Comment: Reaso n for Exam Obesity, unspecified;High blood triglycerides Reason for Exam Iron deficiency Reason for Exam High blood triglycerides Reason for Exam Hypothyroidism, unspecified type Performed By: #### C BC #### [facility] [address] [place] [address] #### RPR W RFX #### [facility] , Vitamin B12 ser/plasOrdered By: Nataly Toure on 03-04-2023 Cobalamin (Vitamin B12) [Mass/Vol] 303 pg/mL Normal 180-914 [facility] Comment on above: Order Comment: Reaso n for Exam Obesity, unspecified;High blood triglycerides Reason for Exam Iron deficiency Reason for Exam High blood triglycerides Reason for Exam Hypothyroidism, unspecified type Performed By: #### C USTB #### [address] Automated basophil %Ordered By: EDE WAY on 02-13-2023 Basophils/100 WBC (Bld) 0.7 % Normal . [facility] Comment on above: Performed By: #### C BC #### [address] #### RPR W RFX #### [facility] , Automated basophil countOrde red By: EDE WAY on 02-13-2023 Basophils (Bld) [#/Vol] 0.1 10*3/uL Normal 0.0-0.2 [facility] Comment on above: Result Comment: PERF ORMED BY: [place] [address] PATHOLOGIST GEAR LAPPING MACHINE OPERATOR ALLA OROZOC M.D. Performed By: #### C BC #### [address] #### RPR W RFX #### [facility] , Automated blood monocyte cou ntOrdered By: EDE WAY on 02-13-2023 Monocytes (Bld) [#/Vol] 0.8 10*3/uL Normal 0.0-0.8 [facility] Comment on above: Performed By: #### C BC #### [address] #### RPR W RFX #### [facility] , Automated eosinophil %Ordere d By: EDE WAY on 02-13-2023 Eosinophils/100 WBC (Bld) 0.6 % Normal . [facility] Comment on above: Performed By: #### C BC #### [place] [address] [place] #### RPR W RFX #### [facility] , Automated eosinophil countOr dered By: EDE WAY on 02-13-2023 Eosinophils (Bld) [#/Vol] 0.1 10*3/uL Normal 0.0-0.45 [facility] Comment on above: Performed By: #### C BC #### [place] [address] [place] #### RPR W RFX #### [facility] , Automated erythrocytes count in urine sediment (number/area)Ordered By: EDE WAY on 02-13-2023 RBC Auto (Urine sed) [#/Area] Innumerable [HPF] 0-4 [facility] Automated leukocytes count i n urine sediment (number/area)Ordered By: EDE WAY on 02-13-2023 WBC Auto (Urine sed) [#/Area] 5-9 [HPF] 0-4 [facility] Automated monocyte %Ordered By: EDE WAY on 02-13-2023 Monocytes/100 WBC (Bld) 8.8 % Normal . [facility] Comment on above: Performed By: #### C BC #### [place] [address] [place] #### RPR W RFX #### [facility] , Automated neutrophil %Ordere d By: EDE WAY on 02-13-2023 Neutrophils/100 WBC (Bld) 73.7 % Normal . [facility] Comment on above: Performed By: #### C BC #### [address] #### RPR W RFX #### [facility] , Automated urine color determ inationOrdered By: EDE WAY on 02-13-2023 Color (U) Hiddenite Critically abnormal Yellow [facility] Comment on above: Order Comment: Name Collection Type:: Voided Performed By: #### C USTB #### [address] Bilirubin Test strip Ql (U)O rdered By: EDE WAY on 02-13-2023 Bilirubin Ql (U) Negative Negative [facility] Complete Blood Count Auto Di ffon 02-13-2023 Mean Corpuscular HGB Conc 33.8 g/dL Normal 32.0-35.0 [facility] Comment on above: Performed By: #### C BC #### [address] #### RPR W RFX #### [facility] , NRBC% 0.1 /100{WBC} Normal 0-0.5 [facility] Comment on above: Performed By: #### C BC #### [facility] [address] [place] [address] [place] #### RPR W RFX #### [facility] , Dipstick and Microscopicon 1 Appearance (U) Clear Normal Clear [facility] Comment on above: Order Comment: Name Collection Type:: Voided Performed By: #### C USTB #### [address] Bacteria,Urine None Seen Normal None Seen [facility] Comment on above: Order Comment: Name Collection Type:: Voided Performed By: #### C USTB #### [address] [address] [place] Bilirubin,Urine Negative Normal Negative [facility] Comment on above: Order Comment: Name Collection Type:: Voided Performed By: #### C USTB #### [address] Glucose Ql (U) Normal Normal Normal [facility] Comment on above: Order Comment: Name Collection Type:: Voided Performed By: #### C USTB #### [address] Hyaline Casts,Urine 0-8 Normal 0-8 [facility] Comment on above: Order Comment: Name Collection Type:: Voided Result Comment: PERF ORMED BY: [place] [address] PATHOLOGIST GEAR LAPPING MACHINE OPERATOR ALLA OROZCO M.D. Performed By: #### C USTB #### [address] Ketones Ql (U) Trace High Negative [facility] Comment on above: Order Comment: Name Collection Type:: Voided Performed By: #### C USTB #### [address] Leukocyte esterase Test strip Ql (U) 1+ High Negative [facility] Comment on above: Order Comment: Name Collection Type:: Voided Performed By: #### C USTB #### [address] Nitrite,Urine Negative Normal Negative [facility] Comment on above: Order Comment: Name Collection Type:: Voided Performed By: #### C USTB #### [place] [address] [place] Occult Blood,Urine 3+ High Negative [facility] Comment on above: Order Comment: Name Collection Type:: Voided Result Comment: PERF ORMED BY: [place] [address] PATHOLOGIST GEAR LAPPING MACHINE OPERATOR ALLA OROZCO M.D. Performed By: #### C USTB #### [place] [id number] [place] RBC,Urine Innumerable High 0-4 [facility] Comment on above: Order Comment: Name Collection Type:: Voided Performed By: #### C USTB #### [address] Specificy [place],Urine 1.015 Normal 1.001-1.03 0 [facility] Comment on above: Order Comment: Name Collection Type:: Voided Performed By: #### C USTB #### [address] Squamous Epithelial Cell,Urine 3-4 High 0-2 [facility] Comment on above: Order Comment: Name Collection Type:: Voided Performed By: #### C USTB #### [address] Urobilinogen,Urine Normal Normal Normal [facility] Comment on above: Order Comment: Name Collection Type:: Voided Performed By: #### C USTB #### [address] WBC,Urine 5-9 High 0-4 [facility] Comment on above: Order Comment: Name Collection Type:: Voided Performed By: #### C USTB #### [address] Erythrocyte distribution wid th [Ratio] by Automated countOrdered By: EDE WAY on 02-13-2023 Erythrocyte distribution width (RBC) [Ratio] 16.2 % High 11.9-15.3 [facility] Comment on above: Performed By: #### C BC #### [address] #### RPR W RFX #### [facility] , Erythrocytes [#/volume] in B lood by Automated countOrdered By: EDE WAY on 02-13-2023 RBC (Bld) [#/Vol] 4.38 10*6/uL Normal 3.60-5.00 [facility] Comment on above: Performed By: #### C BC #### [facility] [address] [place] [address] [place] #### RPR W RFX #### [facility] , Hematocrit [Volume Fraction] of Blood by Automated countOrdered By: EDE WAY on 02-13-2023 Hematocrit (Bld) [Volume fraction] 33.2 % Low 34.0-46.4 [facility] Comment on above: Performed By: #### C BC #### [facility] [address] [place] [address] [place] #### RPR W RFX #### [facility] , Hemoglobin [Mass/volume] in BloodOrdered By: EDE WAY on 02-13-2023 Hemoglobin (Bld) [Mass/Vol] 11.2 g/dL Low 11.8-15.4 [facility] Comment on above: Performed By: #### C BC #### [facility] [address] [place] [address] [place] #### RPR W RFX #### [facility] , Ketones Auto test strip (U) [Mass/Vol]Ordered By: EDE WAY on 02-13-2023 Ketones (U) [Mass/Vol] Trace Negative [facility] 02-13-2023 L ------ Specimen: [id number] Received: 02/16/23 Status: NICK Forbes Num: [id number] Spec Type: Surgical Subm Dr: EDE WAY MD Tissues: A Placenta - 3rd Trimester (Greater than 28 weeks) (PLACENTA) Procedures: HE/3, Gross/Micro L5 Age/ Patient Sex Location Account Attending Physician Rosette Alba [id number] EDE WAY MD SPEC NUM: [id number] RECD: 02/16/23 STATUS: NICK FORBES NUM: [id number] MAURY: 02/13/23- [facility] DR: EDE WAY MD ENTERED: 02/16/230757 [facility] DR: CARLOS TYPE: Surgical DEPT: S ORDERED: [...] less than 5% of the cut surface. Infusion Rn sections are submitted in 3 cassettes as follows: A1 - cord and central disc A2 - membranes and marginal disc Specimen: [id number] Received: 02/16/23 Status: NICK Forbes Num: [id number] Spec Type: Surgical Subm Dr: EDE WAY MD Tissues: A Placenta - 3rd Trimester (Greater than 28 weeks) (PLACENTA) Procedures: HE/Arianna, Gross/Micro L5 Patient: Rosette Alba [id number] (Continued) Specimen: [id number] Received: 02/16/23 (Continued) Gross Description (Continued) Signed (signature on file) sIhan Richardson MD 02/17/232199 Specimen: [id number] Received: 02/16/23 Status: NICK Marcus Num: [id number] Spec Type: Surgical Subm Dr: EDE WAY MD Tissues: A Placenta - 3rd Trimester (Greater than 28 weeks) (PLACENTA) Procedures: HE/Arianna, Gross/Micro L5 Patient: Rosette Alba [id number] (Continued) Specimen: [id number] Received: 02/16/23 (Continued) Gross Description (Continued) A3 - Central lesional area Microscopic Description Three H E slides reviewed. The microscopic examination confirms the diagnosis. CPT Codes 68308 Specimen: [id number] Received: 02/16/23 Status: NICK Marcus Num: [id number] Spec Type: Surgical Subm Dr: EDE WAY MD Tissues: A Placenta - 3rd Trimester (Greater than 28 weeks) (PLACENTA) Procedures: HE/Arianna, Gross/Micro L5 Patient: Rosette Alba [id number] (Continued) Signed (signature on file) Ishan Richardson MD 02/17/232199 Normal [facility] Laboratory - UrinalysisOrder ed By: EDE WAY on 02-13-2023 Hyaline casts LM Ql (Urine sed) 0-8 [LPF] 0-8 [facility] Leukocytes [#/volume] correc kee for nucleated erythrocytes in Blood by Automated counOrdered By: EDE WAY on 02-13-2023 WBC corrected for nucl RBC Auto (Bld) [#/Vol] 9.1 10*3/uL 3.8-11.6 [facility] Leukocytes [#/volume] in Blo od by Automated countOrdered By: EDE WAY on 02-13-2023 WBC (Bld) [#/Vol] 9.1 10*3/uL Normal 3.8-11.6 [facility] Comment on above: Performed By: #### C BC #### [address] #### RPR W RFX #### [facility] , Lymphocytes [#/volume] in Bl ood by Automated countOrdered By: EDE WAY on 02-13-2023 Lymphocytes (Bld) [#/Vol] 1.5 10*3/uL Normal 1.00-4.8 [facility] Comment on above: Performed By: #### C BC #### [place] [address] [place] #### RPR W RFX #### [facility] , Lymphocytes/100 leukocytes i n Blood by Automated countOrdered By: EDE WAY on 02-13-2023 Lymphocytes/100 WBC (Bld) 16.2 % Normal . [facility] Comment on above: Performed By: #### C BC #### [facility] [address] [place] [address] [place] #### RPR W RFX #### [facility] , MCH [Entitic mass] by Automa kee countOrdered By: EDE WAY on 02-13-2023 MCH (RBC) [Entitic mass] 25.6 pg Normal 24.7-34.3 [facility] Comment on above: Performed By: #### C BC #### [place] [address] [place] #### RPR W RFX #### [facility] , MCHC Auto (RBC) [Mass/Vol]Or dered By: EDE WAY on 02-13-2023 MCHC (RBC) [Mass/Vol] 33.8 g/dL 32.0-35.0 [facility] MCV [Entitic volume] by Auto mated countOrdered By: EDE WAY on 02-13-2023 MCV (RBC) [Entitic vol] 75.7 fL Low 80-100 [facility] Comment on above: Performed By: #### C BC #### [address] #### RPR W RFX #### [facility] , Neutrophils [#/volume] in Bl ood by Automated countOrdered By: EDE WAY on 02-13-2023 Neutrophils (Bld) [#/Vol] 6.7 10*3/uL Normal 1.8-7.7 [facility] Comment on above: Performed By: #### C BC #### [place] [address] [place] #### RPR W RFX #### [facility] , Nitrite Test strip Ql (U)Ord ered By: EDE WAY on 02-13-2023 Nitrite Ql (U) Negative Negative [facility] Nucleated erythrocytes [Pres ence] in Blood by Automated countOrdered By: EDE WAY on 02-13-2023 Nucleated RBC Auto Ql (Bld) 0.1 /100{WBC} 0-0.5 [facility] Platelet mean volume [Entiti c volume] in Blood by Automated countOrdered By: EDE WAY on 02-13-2023 Platelet mean volume (Bld) [Entitic vol] 8.5 fL Normal 6.3-10.7 [facility] Comment on above: Performed By: #### C BC #### [place] [address] [place] #### RPR W RFX #### [facility] , Platelets [#/volume] in Bloo d by Automated countOrdered By: EDE WAY on 02-13-2023 Platelets (Bld) [#/Vol] 178 10*3/uL Normal 150-450 [facility] Comment on above: Performed By: #### C BC #### [facility] [address] [place] [address] #### RPR W RFX #### [facility] , RPR w/rfx to Quant TP Abson 02-13-2023 RPR, Rfx Quant RPR Non-Reactive Normal Non Reactive [facility] Comment on above: Result Comment: Perf ormed at: [facility] [place] [id number] Cryptologic Supervisor: Sam Lopez PhD, Phone: [phone] PERFORMED BY: [place] [address] PATHOLOGIST GEAR LAPPING MACHINE OPERATOR ALLA OROZCO M.D. Performed By: #### C BC #### [facility] [address] [place] [address] #### RPR W RFX #### [facility] , Reagin Ab [Presence] in Seru m by RPROrdered By: EDE WAY on 02-13-2023 Reagin Ab RPR Ql (S) Non-Reactive Non Reactive [facility] Comment on above: Performed at: [facility] [address] [id number] Director: Sam Lopez PhD, Phone: [phone] Specific gravity Auto test s trip (U) [Rel density]Ordered By: EDE WAY on 02-13-2023 Specific gravity (U) [Rel density] 1.015 1.001-1.03 0 [facility] Squamous epithelial cells de tection in urine sediment by light microscopyOrdered By: EDE WAY on 02-13-2023 Epithelial cells.squamous LM Ql (Urine sed) 3-4 [HPF] 0-2 [facility] Urine Cultureon 02-13-2023 Bacteria identified Cx Nom (U) No Growth 2 Days PERFORMED BY: [facility] [address] [place] [address] PATHOLOGIST GEAR LAPPING MACHINE OPERATOR ALLA OROZCO M.D. Normal [facility] Comment on above: Performed By: #### C USTB #### [facility] [address] Urine bacteria detection by automated methodOrdered By: EDE WAY on 02-13-2023 Bacteria Auto Ql (U) None seen None Seen [facility] Urine clarity by refractomet ry automatedOrdered By: EDE WAY on 02-13-2023 Clarity Refractometry automated (U) Clear Clear [facility] Urine culture routineOrdered By: EDE WAY on 02-13-2023 Bacteria identified Cx Nom (U) No Growth 2 Days [facility] Urine glucose measurement by automated test strip (mass/volume)Ordered By: EDE AWY on 02-13-2023 Glucose Auto test strip (U) [Mass/Vol] Normal mg/dL Normal [facility] Urine hemoglobin detection b y automated test stripOrdered By: EDE WAY on 02-13-2023 Hemoglobin Auto test strip Ql (U) 3+ Negative [facility] Urine leukocyte esterase det ection by automated test stripOrdered By: EDE WAY on 02-13-2023 Leukocyte esterase Auto test strip Ql (U) 1+ Negative [facility] Urine pH measurement by auto mated test stripOrdered By: EDE WAY on 02-13-2023 pH (U) 6.5 [pH] Normal 5.0-9.0 [facility] Comment on above: Order Comment: Name Collection Type:: Voided Performed By: #### C USTB #### [facility] [address] Urine protein measurement by automated test strip (mass/volume)Ordered By: EDE WAY on 02-13-2023 Protein (U) [Mass/Vol] 30 mg/dL High Negative [facility] Comment on above: Order Comment: Name Collection Type:: Voided Performed By: #### C USTB #### [facility] [address] [place] [id number] [facility] Urobilinogen Auto test strip (U) [Mass/Vol]Ordered By: EDE WAY on 02-13-2023 Urobilinogen (U) [Mass/Vol] Normal mg/dL Normal [facility] Amphetamine Screen Ql (U)Ord ered By: Radha Molina on 02-01-2023 Amphetamines Ql (U) Negative Negative [facility] Automated erythrocytes count in urine sediment (number/area)Ordered By: Radha Molina on 02-01-2023 RBC Auto (Urine sed) [#/Area] 3-4 [HPF] 0-4 [facility] Automated leukocytes count i n urine sediment (number/area)Ordered By: Radha Molina on 02-01-2023 WBC Auto (Urine sed) [#/Area] 10-19 [HPF] 0-4 [facility] Automated urine color determ inationOrdered By: Radha Molina on 02-01-2023 Color (U) Yellow Normal Yellow [facility] Comment on above: Order Comment: Name Collection Type:: Clean-Voided Midstream Performed By: #### C USTB #### [facility] [address] [place] [address] Automated urine sediment esteban cium oxalate crystal count by microscopy (number/high powOrdered By: Radha Molina on 02-01-2023 Calcium oxalate crystals LM.HPF (Urine sed) [#/Area] 3+ [HPF] [facility] Barbiturates [Presence] in U rine by Screen methodOrdered By: Radha Molina on 02-01-2023 Barbiturates Screen Ql (U) Negative Negative [facility] Benzodiazepines Screen Ql (U )Ordered By: Radha Molina on 02-01-2023 Benzodiazepines Ql (U) Negative Negative [facility] Benzoylecgonine [Presence] i n Urine by Screen methodOrdered By: Radha Molina on 02-01-2023 Benzoylecgonine Screen Ql (U) Negative Negative [facility] Bilirubin Test strip Ql (U)O rdered By: Radha Molina on 02-01-2023 Bilirubin Ql (U) Negative Negative [facility] Dipstick and Microscopicon 1 04-04-2022 Appearance (U) Cloudy Critically abnormal Clear [facility] Comment on above: Order Comment: Name Collection Type:: Clean-Voided Midstream Performed By: #### C USTB #### [address] Bacteria,Urine 1+ High None Seen [facility] Comment on above: Order Comment: Name Collection Type:: Clean-Voided Midstream Performed By: #### C USTB #### [place] [address] [place] Bilirubin,Urine Negative Normal Negative [facility] Comment on above: Order Comment: Name Collection Type:: Clean-Voided Midstream Performed By: #### C USTB #### [address] Calcium Oxalate Crystals,Urine 3+ Normal [facility] Comment on above: Order Comment: Name Collection Type:: Clean-Voided Midstream Performed By: #### C USTB #### [place] [address] [place] Glucose Ql (U) Normal Normal Normal [facility] Comment on above: Order Comment: Name Collection Type:: Clean-Voided Midstream Performed By: #### C USTB #### [place] [address] [place] Hyaline Casts,Urine 0-8 Normal 0-8 [facility] Comment on above: Order Comment: Name Collection Type:: Clean-Voided Midstream Result Comment: PERF ORMED BY: [place] [address] PATHOLOGIST GEAR LAPPING MACHINE OPERATOR ALLA OROZCO M.D. Performed By: #### C USTB #### [place] [address] [place] Ketones Ql (U) Trace High Negative [facility] Comment on above: Order Comment: Name Collection Type:: Clean-Voided Midstream Performed By: #### C USTB #### [facility] [address] Leukocyte esterase Test strip Ql (U) 2+ High Negative [facility] Comment on above: Order Comment: Name Collection Type:: Clean-Voided Midstream Performed By: #### C USTB #### [place] [address] [place] Nitrite,Urine Negative Normal Negative [facility] Comment on above: Order Comment: Name Collection Type:: Clean-Voided Midstream Performed By: #### C USTB #### [address] Occult Blood,Urine Negative Normal Negative [facility] Comment on above: Order Comment: Name Collection Type:: Clean-Voided Midstream Result Comment: PERF ORMED BY: [place] [address] PATHOLOGIST GEAR LAPPING MACHINE OPERATOR ALLA OROZCO M.D. Performed By: #### C USTB #### [place] [address] [place] Othe Crystals,Urine None Seen Normal [facility] Comment on above: Order Comment: Name Collection Type:: Clean-Voided Midstream Performed By: #### C USTB #### [place] [address] [place] Protein,Urine Trace High Negative [facility] Comment on above: Order Comment: Name Collection Type:: Clean-Voided Midstream Performed By: #### C USTB #### [place] [address] [place] RBC,Urine 3-4 Normal 0-4 [facility] Comment on above: Order Comment: Name Collection Type:: Clean-Voided Midstream Performed By: #### C USTB #### [place] [address] [place] Specificy [place],Urine 1.025 Normal 1.001-1.03 0 [facility] Comment on above: Order Comment: Name Collection Type:: Clean-Voided Midstream Performed By: #### C USTB #### [place] [address] [place] Squamous Epithelial Cell,Urine 10-19 High 0-2 [facility] Comment on above: Order Comment: Name Collection Type:: Clean-Voided Midstream Performed By: #### C USTB #### [address] Urobilinogen,Urine Normal Normal Normal [facility] Comment on above: Order Comment: Name Collection Type:: Clean-Voided Midstream Performed By: #### C USTB #### [address] WBC,Urine 10-19 High 0-4 [facility] Comment on above: Order Comment: Name Collection Type:: Clean-Voided Midstream Performed By: #### C USTB #### [address] Ketones Auto test strip (U) [Mass/Vol]Ordered By: Radha Molina on 02-01-2023 Ketones (U) [Mass/Vol] Trace Negative [facility] - UrinalysisOrder ed By: Radha Molina on 02-01-2023 Hyaline casts LM Ql (Urine sed) 0-8 [LPF] 0-8 [facility] Nitrite Test strip Ql (U)Ord ered By: Radha Molina on 02-01-2023 Nitrite Ql (U) Negative Negative [facility] OB Urine Drug Screen (NO THC )on 02-01-2023 Amphetamine Screen,Urine Negative Normal Negative [facility] Comment on above: Performed By: #### C USTB #### [address] Barbiturate Screen,Urine Negative Normal Negative [facility] Comment on above: Performed By: #### C USTB #### [place] [address] [place] Benzodiazepines Screen,Urine Negative Normal Negative [facility] Comment on above: Performed By: #### C USTB #### [address] Cocaine Screen,Urine Negative Normal Negative [facility] Comment on above: Performed By: #### C USTB #### [facility] [address] Opiate Screen,Urine Negative Normal Negative [facility] Comment on above: Performed By: #### C USTB #### [facility] [address] Phencyclidine Screen, Urine Negative Normal Negative [facility] Comment on above: Result Comment: Thes e are unconfirmed results and should not be used for legal purposes. Drug Cut-Off Concentration: AMPH 1000 ng/mL FAVIOLA 200 ng/mL THA 200 ng/mL COCM 300 ng/mL OP 300 ng/mL PCP 25 ng/mL PERFORMED BY: [place] [address] PATHOLOGIST GEAR LAPPING MACHINE OPERATOR ALLA OROZCO M.D. Performed By: #### C USTB #### [address] Opiates [Presence] in Urine by Screen methodOrdered By: Radha Molina on 02-01-2023 Opiates Screen Ql (U) Negative Negative [facility] Phencyclidine Screen Ql (U)O rdered By: Radha Molina on 02-01-2023 Phencyclidine Ql (U) Negative Negative [facility] Comment on above: These are unconfirme d results and should not be used for legal purposes. Drug Cut-Off Concentration: AMPH 1000 ng/mL FAVIOLA 200 ng/mL THA 200 ng/mL COCM 300 ng/mL OP 300 ng/mL PCP 25 ng/mL Protein Auto test strip (U) [Mass/Vol]Ordered By: Radha Molina on 02-01-2023 Protein (U) [Mass/Vol] Trace mg/dL Negative F [facility] Specific gravity Auto test s trip (U) [Rel density]Ordered By: Radha Molina on 02-01-2023 Specific gravity (U) [Rel density] 1.025 1.001-1.03 0 [facility] Squamous epithelial cells de tection in urine sediment by light microscopyOrdered By: Radha Molina on 02-01-2023 Epithelial cells.squamous LM Ql (Urine sed) 10-19 [HPF] 0-2 [facility] Urine Cultureon 02-01-2023 Bacteria identified Cx Nom (U) <9,000 colonies/ml mixed bacterial skin contaminants 2 Days PERFORMED BY: [place] [address] PATHOLOGIST GEAR LAPPING MACHINE OPERATOR ALLA OROZCO M.D. Normal [facility] Comment on above: Performed By: #### C USTB #### [facility] [address] [place] [address] Urine bacteria detection by automated methodOrdered By: Radha Molina on 02-01-2023 Bacteria Auto Ql (U) 1+ None Seen [facility] Urine clarity by refractomet ry automatedOrdered By: Radha Molina on 02-01-2023 Clarity Refractometry automated (U) Cloudy Clear [facility] Urine culture routineOrdered By: Radha Molina on 02-01-2023 Bacteria identified Cx Nom (U) 2 Days [facility] Urine glucose measurement by automated test strip (mass/volume)Ordered By: Radha Molina on 02-01-2023 Glucose Auto test strip (U) [Mass/Vol] Normal mg/dL Normal [facility] Urine hemoglobin detection b y automated test stripOrdered By: Radha Molina on 02-01-2023 Hemoglobin Auto test strip Ql (U) Negative Negative [facility] Urine leukocyte esterase det ection by automated test stripOrdered By: Radha Molina on 02-01-2023 Leukocyte esterase Auto test strip Ql (U) 2+ Negative [facility] Urine pH measurement by auto mated test stripOrdered By: Radha Molina on 02-01-2023 pH (U) 6.0 [pH] Normal 5.0-9.0 [facility] Comment on above: Order Comment: Name Collection Type:: Clean-Voided Midstream Performed By: #### C USTB #### [facility] [address] [place] [address] Urine sediment crystal ident ification by light microscopyOrdered By: Radha Molina on 02-01-2023 Crystals LM Nom (Urine sed) None seen [HPF] [facility] Urobilinogen Auto test strip (U) [Mass/Vol]Ordered By: Radha Molina on 02-01-2023 Urobilinogen (U) [Mass/Vol] Normal mg/dL Normal [facility] Amphetamine Screen Ql (U)Ord ered By: MARY KAY CANTU on 01-30-2023 Amphetamines Ql (U) Negative Negative [facility] Automated erythrocytes count in urine sediment (number/area)Ordered By: MARY KAY CANTU on 01-30-2023 RBC Auto (Urine sed) [#/Area] 0-1 [HPF] 0-4 [facility] Automated leukocytes count i n urine sediment (number/area)Ordered By: MARY KAY CANTU on 01-30-2023 WBC Auto (Urine sed) [#/Area] 3-4 [HPF] 0-4 [facility] Automated urine color determ inationOrdered By: MARY KAY CANTU on 01-30-2023 Color (U) Yellow Normal Yellow [facility] Comment on above: Order Comment: Name Collection Type:: Clean-Voided Midstream Performed By: #### O BUDS, ADDONUAPLUS #### [address] Barbiturates [Presence] in U rine by Screen methodOrdered By: MARY KAY CANTU on 01-30-2023 Barbiturates Screen Ql (U) Negative Negative [facility] Benzodiazepines Screen Ql (U )Ordered By: MARY KAY CANTU on 01-30-2023 Benzodiazepines Ql (U) Negative Negative [facility] Benzoylecgonine [Presence] i n Urine by Screen methodOrdered By: MARY KAY CANTU on 01-30-2023 Benzoylecgonine Screen Ql (U) Negative Negative [facility] Bilirubin Test strip Ql (U)O rdered By: MARY KAY CANTU on 01-30-2023 Bilirubin Ql (U) Negative Negative [facility] Dipstick and Microscopicon 1 04-02-2022 Appearance (U) Clear Normal Clear [facility] Comment on above: Order Comment: Name Collection Type:: Clean-Voided Midstream Performed By: #### O BUDS, ADDONUAPLUS #### [place] [address] [place] Bacteria,Urine None Seen Normal None Seen [facility] Comment on above: Order Comment: Name Collection Type:: Clean-Voided Midstream Performed By: #### O BUDS, ADDONUAPLUS #### [address] Bilirubin,Urine Negative Normal Negative [facility] Comment on above: Order Comment: Name Collection Type:: Clean-Voided Midstream Performed By: #### O BUDS, ADDONUAPLUS #### [address] Glucose Ql (U) Normal Normal Normal [facility] Comment on above: Order Comment: Name Collection Type:: Clean-Voided Midstream Performed By: #### O BUDS, ADDONUAPLUS #### [place] [address] [place] Hyaline Casts,Urine 0-8 Normal 0-8 [facility] Comment on above: Order Comment: Name Collection Type:: Clean-Voided Midstream Result Comment: PERF ORMED BY: [place] [address] PATHOLOGIST GEAR LAPPING MACHINE OPERATOR ALLA OROZCO M.D. Performed By: #### O BUDS, ADDONUAPLUS #### [address] Ketones Ql (U) Negative Normal Negative [facility] Comment on above: Order Comment: Name Collection Type:: Clean-Voided Midstream Performed By: #### O BUDS, ADDONUAPLUS #### [place] [address] [place] Leukocyte esterase Test strip Ql (U) 2+ High Negative [facility] Comment on above: Order Comment: Name Collection Type:: Clean-Voided Midstream Performed By: #### O BUDS, ADDONUAPLUS #### [address] Nitrite,Urine Negative Normal Negative [facility] Comment on above: Order Comment: Name Collection Type:: Clean-Voided Midstream Performed By: #### O BUDS, ADDONUAPLUS #### [address] Occult Blood,Urine Negative Normal Negative [facility] Comment on above: Order Comment: Name Collection Type:: Clean-Voided Midstream Result Comment: PERF ORMED BY: [place] [address] PATHOLOGIST GEAR LAPPING MACHINE OPERATOR ALAL OROZCO M.D. Performed By: #### O BUDS, ADDONUAPLUS #### [address] Protein,Urine Negative Normal Negative [facility] Comment on above: Order Comment: Name Collection Type:: Clean-Voided Midstream Performed By: #### O BUDS, ADDONUAPLUS #### [place] [address] [place] RBC LM.HPF (Urine sed) [#/Area] 0 /[HPF] Normal 0-4 [facility] Comment on above: Order Comment: Name Collection Type:: Clean-Voided Midstream Performed By: #### O BUDS, ADDONUAPLUS #### [address] Specificy [place],Urine 1.017 Normal 1.001-1.03 0 [facility] Comment on above: Order Comment: Name Collection Type:: Clean-Voided Midstream Performed By: #### O BUDS, ADDONUAPLUS #### [place] [address] [place] Squamous Epithelial Cell,Urine 1-2 Normal 0-2 [facility] Comment on above: Order Comment: Name Collection Type:: Clean-Voided Midstream Performed By: #### O BUDS, ADDONUAPLUS #### [address] Urobilinogen,Urine Normal Normal Normal [facility] Comment on above: Order Comment: Name Collection Type:: Clean-Voided Midstream Performed By: #### O BUDS, ADDONUAPLUS #### [place] [address] [place] WBC,Urine 3-4 Normal 0-4 [facility] Comment on above: Order Comment: Name Collection Type:: Clean-Voided Midstream Performed By: #### O BUDS, ADDONUAPLUS #### [address] Ketones Auto test strip (U) [Mass/Vol]Ordered By: MARY KAY CANTU on 01-30-2023 Ketones (U) [Mass/Vol] Negative Negative [facility] - UrinalysisOrder ed By: MARY KAY CANTU on 01-30-2023 Hyaline casts LM Ql (Urine sed) 0-8 [LPF] 0-8 [facility] Nitrite Test strip Ql (U)Ord ered By: MARY KAY CANTU on 01-30-2023 Nitrite Ql (U) Negative Negative [facility] OB Urine Drug Screen (NO THC )on 01-30-2023 Amphetamine Screen,Urine Negative Normal Negative [facility] Comment on above: Performed By: #### O BUDS, ADDONUAPLUS #### [place] [address] [place] Barbiturate Screen,Urine Negative Normal Negative [facility] Comment on above: Performed By: #### O BUDS, ADDONUAPLUS #### [place] [address] [place] Benzodiazepines Screen,Urine Negative Normal Negative [facility] Comment on above: Performed By: #### O BUDS, ADDONUAPLUS #### [place] [address] [place] Cocaine Screen,Urine Negative Normal Negative [facility] Comment on above: Performed By: #### O BUDS, ADDONUAPLUS #### [place] [address] [place] Opiate Screen,Urine Negative Normal Negative [facility] Comment on above: Performed By: #### O BUDS, ADDONUAPLUS #### [place] [address] [place] Phencyclidine Screen, Urine Negative Normal Negative [facility] Comment on above: Result Comment: Thes e are unconfirmed results and should not be used for legal purposes. Drug Cut-Off Concentration: AMPH 1000 ng/mL FAVIOLA 200 ng/mL THA 200 ng/mL COCM 300 ng/mL OP 300 ng/mL PCP 25 ng/mL PERFORMED BY: [place] [address] PATHOLOGIST GEAR LAPPING MACHINE OPERATOR ALLA OROZCO M.D. Performed By: #### O BUDS, ADDONUAPLUS #### [address] Opiates [Presence] in Urine by Screen methodOrdered By: MARY KAY CANTU on 01-30-2023 Opiates Screen Ql (U) Negative Negative [facility] Phencyclidine Screen Ql (U)O rdered By: MARY KAY CANTU on 01-30-2023 Phencyclidine Ql (U) Negative Negative [facility] Comment on above: These are unconfirme d results and should not be used for legal purposes. Drug Cut-Off Concentration: AMPH 1000 ng/mL FAVIOLA 200 ng/mL THA 200 ng/mL COCM 300 ng/mL OP 300 ng/mL PCP 25 ng/mL Protein Auto test strip (U) [Mass/Vol]Ordered By: MARY KAY CANTU on 01-30-2023 Protein (U) [Mass/Vol] Negative Negative [facility] Specific gravity Auto test s trip (U) [Rel density]Ordered By: MARY KAY CANTU on 01-30-2023 Specific gravity (U) [Rel density] 1.017 1.001-1.03 0 [facility] Squamous epithelial cells de tection in urine sediment by light microscopyOrdered By: MARY KAY CANTU on 01-30-2023 Epithelial cells.squamous LM Ql (Urine sed) 1-2 [HPF] 0-2 [facility] Urine bacteria detection by automated methodOrdered By: MARY KAY CANTU on 01-30-2023 Bacteria Auto Ql (U) None seen None Seen [facility] Urine clarity by refractomet ry automatedOrdered By: MARY KAY CANTU on 01-30-2023 Clarity Refractometry automated (U) Clear Clear [facility] Urine glucose measurement by automated test strip (mass/volume)Ordered By: MARY KAY CANTU on 01-30-2023 Glucose Auto test strip (U) [Mass/Vol] Normal mg/dL Normal [facility] Urine hemoglobin detection b y automated test stripOrdered By: MARY KAY CANTU on 01-30-2023 Hemoglobin Auto test strip Ql (U) Negative Negative [facility] Urine leukocyte esterase det ection by automated test stripOrdered By: MARY KAY CANTU on 01-30-2023 Leukocyte esterase Auto test strip Ql (U) 2+ Negative [facility] Urine pH measurement by auto mated test stripOrdered By: MARY KAY CANTU on 01-30-2023 pH (U) 6.5 [pH] Normal 5.0-9.0 [facility] Comment on above: Order Comment: Name Collection Type:: Clean-Voided Midstream Performed By: #### O BUDS, ADDONUAPLUS #### [facility] [address] [place] [address] Urobilinogen Auto test strip (U) [Mass/Vol]Ordered By: MARY KAY CANTU on 01-30-2023 Urobilinogen (U) [Mass/Vol] Normal mg/dL Normal [facility] S. agalactiae Org specific c x Ql (Unsp spec)Ordered By: Radha Molina on 01-05-2023 Group B Streptococcus Culture Strep. agalactiae Grp B [facility] Strep B Cultureon 01-05-2023 Strep B Culture ORGANISM: Strep. agalactiae Grp B (O:B) PERFORMED BY: [place] [address] PATHOLOGIST GEAR LAPPING MACHINE OPERATOR ALLA OROZCO M.D. Normal [facility] Comment on above: Performed By: #### C USTB #### [facility] [address] [place] [address] Glucose Tolerance 3 Houron 1 02-21-2022 Glucose Tolerance 3 Hour Normal [facility] Comment on above: Result Comment: FAST ING 88 Col: 12/22/22 0803 1HR GLU 146 Col: 12/22/22 1017 2HR GLU 126 Col: 12/22/22 1117 3HR GLU 144 Col: 12/22/22 1217 NON-GESTATIONAL GESTATIONAL FASTING 70-100 < 92 1 HOUR < 200 < 180 2 HOUR < 140 < 153 3 HOUR NOT ESTABLISHED < 140 PERFORMED BY: [place] [address] PATHOLOGIST GEAR LAPPING MACHINE OPERATOR ALLA OROZCO M.D. Performed By: #### G TT3 #### [address] [address] Serum or plasma glucose tole nabeel 3 hours panelOrdered By: Radha Molina on 12-22-2022 Glucose tolerance 3 hours panel See comment [facility] Comment on above: FASTING 88 Col: 09/06 0803 1HR GLU 146 Col: 12/22/22 1017 2HR GLU 126 Col: 12/22/22 1117 3HR GLU 144 Col: 12/22/22 1217 fibronectinOrdered By: Radha Molina on 12-08-2022 Fibronectin. (Vag fld) [Mass/Vol] Negative Negative [facility] Alanine aminotransferase [En zymatic activity/volume] in Serum or PlasmaOrdered By: Nataly Toure on 12-03-2022 ALT [Catalytic activity/Vol] 7 U/L 7-52 [facility] Albumin [Mass/volume] in Ser um or Plasma by Bromocresol green (BCG) dye binding methoOrdered By: Nataly Toure on 12-03-2022 Albumin BCG dye [Mass/Vol] 3.4 g/dL 3.5-5.7 [facility] Alkaline phosphatase [Enzyma tic activity/volume] in Serum or PlasmaOrdered By: Nataly Toure on 12-03-2022 ALP [Catalytic activity/Vol] 79 U/L 34-104 [facility] Aspartate aminotransferase [ Enzymatic activity/volume] in Serum or PlasmaOrdered By: Nataly Toure on 12-03-2022 AST [Catalytic activity/Vol] 9 U/L 13-39 [facility] Basophils Auto (Bld) [#/Vol] Ordered By: Nataly Toure on 12-03-2022 Basophils (Bld) [#/Vol] 0.0 10*3/uL 0.0-0.2 [facility] Basophils/100 WBC Auto (Bld) Ordered By: Nataly Toure on 12-03-2022 Basophils/100 WBC (Bld) 0.1 % . [facility] Bilirubin.total [Mass/volume ] in Serum or PlasmaOrdered By: Nataly Toure on 12-03-2022 Bilirubin [Mass/Vol] 0.2 mg/dL 0.3-1.0 [facility] Calcium [Mass/volume] in Ser um or PlasmaOrdered By: Nataly Toure on 12-03-2022 Calcium [Mass/Vol] 8.9 mg/dL 8.6-10.3 [facility] Carbon dioxide, total [Moles /volume] in Serum or PlasmaOrdered By: Nataly Toure on 12-03-2022 CO2 [Moles/Vol] 21.9 mmol/L 21.0-31.0 [facility] Chloride [Moles/volume] in S rosa or PlasmaOrdered By: Nataly Toure on 12-03-2022 Chloride [Moles/Vol] 102 mmol/L 98-107 [facility] Creatinine [Mass/volume] in Serum or PlasmaOrdered By: Nataly Toure on 12-03-2022 Creatinine [Mass/Vol] 0.49 mg/dL 0.60-1.20 [facility] Eosinophils Auto (Bld) [#/Vo l]Ordered By: Nataly Toure on 12-03-2022 Eosinophils (Bld) [#/Vol] 0.0 10*3/uL 0.0-0.45 [facility] Eosinophils/100 WBC Auto (Bl d)Ordered By: Nataly Toure on 12-03-2022 Eosinophils/100 WBC (Bld) 0.3 % . [facility] Erythrocyte distribution wid th Auto (RBC) [Ratio]Ordered By: Nataly Toure on 12-03-2022 Erythrocyte distribution width (RBC) [Ratio] 14.4 % 11.9-15.3 [facility] Globulin Calc (S) [Mass/Vol] Ordered By: Nataly Toure on 12-03-2022 Globulin (S) [Mass/Vol] 3.3 g/dL [facility] Glucose [Mass/volume] in Ser um or PlasmaOrdered By: Nataly Toure on 12-03-2022 Glucose [Mass/Vol] 94 mg/dL 70-100 [facility] Comment on above: ADA recommended refe rence rangeRandom Glucose Reference Range is dependent on time and content of last meal. Glucose of more than 200 mg/dL in a nonstressed, ambulatory subject supports the diagnosis of Diabetes Mellitus. Hematocrit Auto (Bld) [Volum e fraction]Ordered By: Nataly Toure on 12-03-2022 Hematocrit (Bld) [Volume fraction] 33.8 % 34.0-46.4 [facility] Hemoglobin [Mass/volume] in BloodOrdered By: Nataly Toure on 12-03-2022 Hemoglobin (Bld) [Mass/Vol] 11.0 g/dL 11.8-15.4 [facility] Iron [Mass/volume] in Serum or PlasmaOrdered By: Nataly Toure on 12-03-2022 Iron [Mass/Vol] 38 ug/dL 50-212 [facility] Iron binding capacity [Mass/ volume] in Serum or PlasmaOrdered By: Nataly Toure on 12-03-2022 Iron binding capacity [Mass/Vol] 587 ug/dL 255-450 [facility] Iron saturation [Mass Fracti on] in Serum or PlasmaOrdered By: Nataly Toure on 12-03-2022 Iron saturation [Mass fraction] 6.5 % 20-50 [facility] Leukocytes [#/volume] correc kee for nucleated erythrocytes in Blood by Automated counOrdered By: Nataly Toure on 12-03-2022 WBC corrected for nucl RBC Auto (Bld) [#/Vol] 11.2 10*3/uL 3.8-11.6 [facility] Lymphocytes Auto (Bld) [#/Vo l]Ordered By: Nataly Toure on 12-03-2022 Lymphocytes (Bld) [#/Vol] 1.8 10*3/uL 1.00-4.8 [facility] Lymphocytes/100 WBC Auto (Bl d)Ordered By: Nataly Toure on 12-03-2022 Lymphocytes/100 WBC (Bld) 16.0 % . [facility] MCH Auto (RBC) [Entitic mass ]Ordered By: Nataly Toure on 12-03-2022 MCH (RBC) [Entitic mass] 26.0 pg 24.7-34.3 [facility] MCHC Auto (RBC) [Mass/Vol]Or dered By: Nataly Toure on 12-03-2022 MCHC (RBC) [Mass/Vol] 32.5 g/dL 32.0-35.0 [facility] MCV Auto (RBC) [Entitic vol] Ordered By: Nataly Toure on 12-03-2022 MCV (RBC) [Entitic vol] 80.1 fL 80-100 [facility] Magnesium [Mass/volume] in S rosa or PlasmaOrdered By: Nataly Toure on 12-03-2022 Magnesium [Mass/Vol] 1.7 mg/dL 1.9-2.7 [facility] Monocytes Auto (Bld) [#/Vol] Ordered By: Nataly Toure on 12-03-2022 Monocytes (Bld) [#/Vol] 0.8 10*3/uL 0.0-0.8 [facility] Monocytes/100 WBC Auto (Bld) Ordered By: Nataly Toure on 12-03-2022 Monocytes/100 WBC (Bld) 6.9 % . [facility] Neutrophils Auto (Bld) [#/Vo l]Ordered By: Nataly Toure on 12-03-2022 Neutrophils (Bld) [#/Vol] 8.6 10*3/uL 1.8-7.7 [facility] Neutrophils/100 WBC Auto (Bl d)Ordered By: Nataly Toure on 12-03-2022 Neutrophils/100 WBC (Bld) 76.7 % . [facility] No Panel InformationOrdered By: Nataly Toure on 12-03-2022 Estimated GFR (CKD-EPI) > 60.0 mL/Min [facility] Creatinine Clearance (Chem N/A [facility] Nucleated erythrocytes [Pres ence] in Blood by Automated countOrdered By: Nataly Toure on 12-03-2022 Nucleated RBC Auto Ql (Bld) 0.0 /100{WBC} 0-0.5 [facility] Platelet mean volume Auto (B ld) [Entitic vol]Ordered By: Nataly Toure on 12-03-2022 Platelet mean volume (Bld) [Entitic vol] 9.0 fL 6.3-10.7 [facility] Platelets Auto (Bld) [#/Vol] Ordered By: Nataly Toure on 12-03-2022 Platelets (Bld) [#/Vol] 205 10*3/uL 150-450 [facility] Potassium [Moles/volume] in Serum or PlasmaOrdered By: Nataly Toure on 12-03-2022 Potassium [Moles/Vol] 3.8 mmol/L 3.5-5.1 [facility] Protein [Mass/volume] in Ser um or PlasmaOrdered By: Nataly Toure on 12-03-2022 Protein [Mass/Vol] 6.7 g/dL 6.4-8.9 [facility] RBC Auto (Bld) [#/Vol]Ordere d By: Nataly Toure on 12-03-2022 RBC (Bld) [#/Vol] 4.22 10*6/uL 3.60-5.00 [facility] Serum or plasma albumin/glob ulin mass ratioOrdered By: Nataly Toure on 12-03-2022 Albumin/Globulin [Mass ratio] 1.0 {ratio} [facility] Serum or plasma anion gap de terminationOrdered By: Nataly Toure on 12-03-2022 Anion gap [Moles/Vol] 17.9 mmol/L 6.0-15.0 [facility] Sodium [Moles/volume] in Ser um or PlasmaOrdered By: Nataly Toure on 12-03-2022 Sodium [Moles/Vol] 138 mmol/L 136-145 [facility] Thyrotropin [Units/volume] i n Serum or PlasmaOrdered By: Nataly Toure on 12-03-2022 TSH Qn 2.65 m[IU]/L 0.45-5.33 [facility] Transferrin [Mass/volume] in Serum or PlasmaOrdered By: Nataly Toure on 12-03-2022 Transferrin [Mass/Vol] 419 mg/dL 203-362 [facility] Urea nitrogen [Mass/volume] in Serum or PlasmaOrdered By: Nataly Toure on 12-03-2022 Urea nitrogen [Mass/Vol] 11 mg/dL 7-25 [facility] WBC Auto (Bld) [#/Vol]Ordere d By: Nataly Toure on 12-03-2022 WBC (Bld) [#/Vol] 11.2 10*3/uL 3.8-11.6 [facility] Activated partial thrombopla stin time (aPTT) in platelet poor plasma by coagulation aOrdered By: Staci Ortiz on 12-01-2022 aPTT Coag (PPP) [Time] 26.8 s 25.1-36.5 [facility] Comment on above: A hematocrit value g reater than 55% may lead to inaccurate results in coagulation testing. Patients having hematocrit values >55% require a special collection tube for coagulation studies. Please contact the laboratory at [phone] for redraw instructions. Automated erythrocytes count in urine sediment (number/area)Ordered By: Staci Ortiz on 12-01-2022 RBC Auto (Urine sed) [#/Area] 0-1 [HPF] 0-4 [facility] Automated leukocytes count i n urine sediment (number/area)Ordered By: Staci Ortiz on 12-01-2022 WBC Auto (Urine sed) [#/Area] 3-4 [HPF] 0-4 [facility] Basophils Auto (Bld) [#/Vol] Ordered By: Staci Ortiz on 12-01-2022 Basophils (Bld) [#/Vol] 0.0 10*3/uL 0.0-0.2 [facility] Basophils/100 WBC Auto (Bld) Ordered By: Staci Ortiz on 12-01-2022 Basophils/100 WBC (Bld) 0.3 % . [facility] Bilirubin Test strip Ql (U)O rdered By: Staci Ortiz on 12-01-2022 Bilirubin Ql (U) Negative Negative [facility] COVID CepheidOrdered By: Noah larioskristofer Ortiz on 12-01-2022 SARS-CoV-2 (COVID-19) Ab IA Ql Negative Negative [facility] Comment on above: This is a duplicate Cepheid Xpert Xpress CoV-2/Flu/RSV Plus RNA by RT-PCR result to be used for statistical tracking purpose only. COVID-19 Detected/Not Detect edOrdered By: Staci Ortiz on 12-01-2022 SARS-CoV-2 (COVID-19) RNA SVETLANA+non-probe Ql (Nph) Not detected Not Detecte [facility] Comment on above: This is a duplicate RP2.1 COVID (PCR) result to be used for statistical tracking purpose only. Calcium [Mass/volume] in Ser um or PlasmaOrdered By: Staci Ortiz on 12-01-2022 Calcium [Mass/Vol] 9.1 mg/dL 8.6-10.3 [facility] Carbon dioxide, total [Moles /volume] in Serum or PlasmaOrdered By: Staci Ortiz on 12-01-2022 CO2 [Moles/Vol] 22.4 mmol/L 21.0-31.0 [facility] Chloride [Moles/volume] in S rosa or PlasmaOrdered By: Staci Ortiz on 12-01-2022 Chloride [Moles/Vol] 102 mmol/L 98-107 [facility] Color Auto (U)Ordered By: Elizabeth Ortiz on 12-01-2022 Color (U) Yellow Yellow [facility] Creatinine [Mass/volume] in Serum or PlasmaOrdered By: Staci Ortiz on 12-01-2022 Creatinine [Mass/Vol] 0.51 mg/dL 0.60-1.20 [facility] Eosinophils Auto (Bld) [#/Vo l]Ordered By: Staci Ortiz on 12-01-2022 Eosinophils (Bld) [#/Vol] 0.0 10*3/uL 0.0-0.45 [facility] Eosinophils/100 WBC Auto (Bl d)Ordered By: Staci Ortiz on 12-01-2022 Eosinophils/100 WBC (Bld) 0.4 % . [facility] Erythrocyte distribution wid th Auto (RBC) [Ratio]Ordered By: Staci Ortiz on 12-01-2022 Erythrocyte distribution width (RBC) [Ratio] 14.5 % 11.9-15.3 [facility] Fibrin D-dimer [Presence] in Platelet poor plasma by Latex agglutinationOrdered By: Staci Ortiz on 12-01-2022 Fibrin D-dimer LA Ql (PPP) 231 ng/mL 0-243 [facility] Comment on above: The reference range for [...] coagulation studies. Please contact the laboratory at [phone] for redraw instructions. Glucose [Mass/volume] in Ser um or PlasmaOrdered By: Staci Ortiz on 12-01-2022 Glucose [Mass/Vol] 88 mg/dL 70-100 [facility] Comment on above: ADA recommended refe rence rangeRandom Glucose Reference Range is dependent on time and content of last meal. Glucose of more than 200 mg/dL in a nonstressed, ambulatory subject supports the diagnosis of Diabetes Mellitus. HCG ( test) IA.rapi d Ql (U)Ordered By: Staci Ortiz on 12-01-2022 HCG ( test) Ql (U) Positive [facility] Hematocrit Auto (Bld) [Volum e fraction]Ordered By: Staci Ortiz on 12-01-2022 Hematocrit (Bld) [Volume fraction] 34.2 % 34.0-46.4 [facility] Hemoglobin [Mass/volume] in BloodOrdered By: Staci Ortiz on 12-01-2022 Hemoglobin (Bld) [Mass/Vol] 11.3 g/dL 11.8-15.4 [facility] INR in Platelet poor plasma by Coagulation assayOrdered By: Staci Ortiz on 12-01-2022 INR Coag (PPP) [Relative time] 0.9 {INR} [facility] Comment on above: INR Therapeutic Rang e [...] 12-01-2022 Ketones (U) [Mass/Vol] Negative Negative [facility] - UrinalysisOrder ed By: Staci Ortiz on 12-01-2022 Hyaline casts LM Ql (Urine sed) 0-8 [LPF] 0-8 [facility] Leukocytes [#/volume] correc kee for nucleated erythrocytes in Blood by Automated counOrdered By: Staci Ortiz on 12-01-2022 WBC corrected for nucl RBC Auto (Bld) [#/Vol] 12.1 10*3/uL 3.8-11.6 [facility] Lymphocytes Auto (Bld) [#/Vo l]Ordered By: Staci Ortiz on 12-01-2022 Lymphocytes (Bld) [#/Vol] 1.8 10*3/uL 1.00-4.8 [facility] Lymphocytes/100 WBC Auto (Bl d)Ordered By: Staci Ortiz on 12-01-2022 Lymphocytes/100 WBC (Bld) 14.9 % . [facility] MCH Auto (RBC) [Entitic mass ]Ordered By: Staci Ortiz on 12-01-2022 MCH (RBC) [Entitic mass] 26.4 pg 24.7-34.3 [facility] MCHC Auto (RBC) [Mass/Vol]Or dered By: Staci Ortiz on 12-01-2022 MCHC (RBC) [Mass/Vol] 33.1 g/dL 32.0-35.0 [facility] MCV Auto (RBC) [Entitic vol] Ordered By: Staci Ortiz on 12-01-2022 MCV (RBC) [Entitic vol] 79.7 fL 80-100 [facility] Monocyte distribution width [Entitic volume] in Blood by AutomatedOrdered By: Staci Ortiz on 12-01-2022 Monocyte distribution width Auto (Bld) [Entitic vol] 16.82 % 0.00-20.00 [facility] Monocytes Auto (Bld) [#/Vol] Ordered By: Staci Ortiz on 12-01-2022 Monocytes (Bld) [#/Vol] 0.9 10*3/uL 0.0-0.8 [facility] Monocytes/100 WBC Auto (Bld) Ordered By: Staci Ortiz on 12-01-2022 Monocytes/100 WBC (Bld) 7.6 % . [facility] Natriuretic peptide B [Mass/ Vol]Ordered By: Staci Ortiz on 12-01-2022 Natriuretic peptide B (Bld) [Mass/Vol] 10.0 pg/mL 5-100 [facility] Neutrophils Auto (Bld) [#/Vo l]Ordered By: Staci Ortiz on 12-01-2022 Neutrophils (Bld) [#/Vol] 9.3 10*3/uL 1.8-7.7 [facility] Neutrophils/100 WBC Auto (Bl d)Ordered By: Staci Ortiz on 12-01-2022 Neutrophils/100 WBC (Bld) 76.8 % . [facility] Nitrite Test strip Ql (U)Ord ered By: Staci Ortiz on 12-01-2022 Nitrite Ql (U) Negative Negative [facility] No Panel InformationOrdered By: Staci Ortiz on 12-01-2022 Estimated GFR (CKD-EPI) > 60.0 mL/Min [facility] Creatinine Clearance (Chem 194.78 [facility] Nucleated erythrocytes [Pres ence] in Blood by Automated countOrdered By: Staci Ortiz on 10-17-2023 Nucleated RBC Auto Ql (Bld) 0.0 /100{WBC} 0-0.5 [facility] Platelet mean volume Auto (B ld) [Entitic vol]Ordered By: Staci Ortiz on 12-01-2022 Platelet mean volume (Bld) [Entitic vol] 8.8 fL 6.3-10.7 [facility] Platelets Auto (Bld) [#/Vol] Ordered By: Staci Ortiz on 12-01-2022 Platelets (Bld) [#/Vol] 212 10*3/uL 150-450 [facility] Potassium [Moles/volume] in Serum or PlasmaOrdered By: Staci Ortiz on 12-01-2022 Potassium [Moles/Vol] 3.7 mmol/L 3.5-5.1 [facility] Protein Auto test strip (U) [Mass/Vol]Ordered By: Staci Ortiz on 12-01-2022 Protein (U) [Mass/Vol] Negative Negative [facility] Prothrombin time (PT)Ordered By: Staci Ortiz on 12-01-2022 PT Coag (PPP) [Time] 11.3 s 9.0-12.9 [facility] Comment on above: A hematocrit value g reater than 55% may lead to inaccurate results in coagulation testing. Patients having hematocrit values >55% require a special collection tube for coagulation studies. Please contact the laboratory at [phone] for redraw instructions. RBC Auto (Bld) [#/Vol]Ordere d By: Staci Ortiz on 12-01-2022 RBC (Bld) [#/Vol] 4.29 10*6/uL 3.60-5.00 [facility] Respiratory pathogens DNA an d RNA panel - Nasopharynx by SVETLANA with non-probe detectionOrdered By: Staci Ortiz on 12-01-2022 Respiratory pathogens DNA and RNA panel SVETLANA+non-probe (Nph) [facility] Respiratory pathogens DNA and RNA panel SVETLANA+non-probe (Nph) [facility] Serum or plasma anion gap de terminationOrdered By: Staci Ortiz on 12-01-2022 Anion gap [Moles/Vol] 13.3 mmol/L 6.0-15.0 [facility] Sodium [Moles/volume] in Ser um or PlasmaOrdered By: Staci Ortiz on 12-01-2022 Sodium [Moles/Vol] 134 mmol/L 136-145 [facility] Specific gravity Auto test s trip (U) [Rel density]Ordered By: Staci Ortiz on 12-01-2022 Specific gravity (U) [Rel density] 1.021 1.001-1.03 0 [facility] Squamous epithelial cells de tection in urine sediment by light microscopyOrdered By: Staci Ortiz on 12-01-2022 Epithelial cells.squamous LM Ql (Urine sed) 5-9 [HPF] 0-2 [facility] Troponin I.cardiac [Mass/vol ume] in Serum or Plasma by Detection limit <= 0.01 ng/Ordered By: Staci Ortiz on 12-01-2022 Troponin I.cardiac DL <= 0.01 ng/mL [Mass/Vol] < 2.3 pg/mL 0.0-15.0 [facility] Urea nitrogen [Mass/volume] in Serum or PlasmaOrdered By: Staci Ortiz on 12-01-2022 Urea nitrogen [Mass/Vol] 9 mg/dL 7-25 [facility] Urine bacteria detection by automated methodOrdered By: Staci Ortiz on 12-01-2022 Bacteria Auto Ql (U) None seen None Seen [facility] Urine clarity by refractomet ry automatedOrdered By: Staci Ortiz on 12-01-2022 Clarity Refractometry automated (U) Cloudy Clear [facility] Urine glucose measurement by automated test strip (mass/volume)Ordered By: Staci Ortiz on 12-01-2022 Glucose Auto test strip (U) [Mass/Vol] Normal mg/dL Normal [facility] Urine hemoglobin detection b y automated test stripOrdered By: Staci Ortiz on 12-01-2022 Hemoglobin Auto test strip Ql (U) Negative Negative [facility] Urine leukocyte esterase det ection by automated test stripOrdered By: Staci Ortiz on 12-01-2022 Leukocyte esterase Auto test strip Ql (U) 1+ Negative [facility] Urobilinogen Auto test strip (U) [Mass/Vol]Ordered By: Staci Ortiz on 12-01-2022 Urobilinogen (U) [Mass/Vol] Normal mg/dL Normal [facility] WBC Auto (Bld) [#/Vol]Ordere d By: Staci Ortiz on 12-01-2022 WBC (Bld) [#/Vol] 12.1 10*3/uL 3.8-11.6 [facility] pH Auto test strip (U)Ordere d By: Staci Ortiz on 12-01-2022 pH (U) 6.5 [pH] 5.0-9.0 [facility] Amphetamine Screen Ql (U)Ord ered By: TELMA Smith on 11-20-2022 Amphetamines Ql (U) Negative Negative [facility] Barbiturates [Presence] in U rine by Screen methodOrdered By: TELMA Smith on 11-20-2022 Barbiturates Screen Ql (U) Negative Negative [facility] Benzodiazepines Screen Ql (U )Ordered By: TELMA Smith on 11-20-2022 Benzodiazepines Ql (U) Negative Negative [facility] Benzoylecgonine [Presence] i n Urine by Screen methodOrdered By: TELMA Smith on 11-20-2022 Benzoylecgonine Screen Ql (U) Negative Negative [facility] Bilirubin Test strip Ql (U)O rdered By: TELMA Smith on 11-20-2022 Bilirubin Ql (U) Negative Negative [facility] Color Auto (U)Ordered By: MD DESEAN Smith on 11-20-2022 Color (U) Yellow Yellow [facility] Ketones Auto test strip (U) [Mass/Vol]Ordered By: TELMA Smith on 11-20-2022 Ketones (U) [Mass/Vol] Trace Negative [facility] Nitrite Test strip Ql (U)Ord ered By: TELMA Smith on 11-20-2022 Nitrite Ql (U) Negative Negative [facility] Opiates [Presence] in Urine by Screen methodOrdered By: TELMA Smith on 11-20-2022 Opiates Screen Ql (U) Negative Negative [facility] Phencyclidine Screen Ql (U)O rdered By: TELMA Smith on 11-20-2022 Phencyclidine Ql (U) Negative Negative [facility] Comment on above: These are unconfirme d results and should not be used for legal purposes. Drug Cut-Off Concentration: AMPH 1000 ng/mL FAVIOLA 200 ng/mL THA 200 ng/mL COCM 300 ng/mL OP 300 ng/mL PCP 25 ng/mL Protein Auto test strip (U) [Mass/Vol]Ordered By: TELMA Smith on 11-20-2022 Protein (U) [Mass/Vol] Negative Negative [facility] Specific gravity Auto test s trip (U) [Rel density]Ordered By: TELMA Smith on 11-20-2022 Specific gravity (U) [Rel density] 1.025 1.001-1.03 0 [facility] Urine clarity by refractomet ry automatedOrdered By: TELMA Smith on 11-20-2022 Clarity Refractometry automated (U) Clear Clear [facility] Urine glucose measurement by automated test strip (mass/volume)Ordered By: SHELLIE Smith on 11-20-2022 Glucose Auto test strip (U) [Mass/Vol] Normal mg/dL Normal [facility] Urine hemoglobin detection b y automated test stripOrdered By: TELMA Smith on 11-20-2022 Hemoglobin Auto test strip Ql (U) Negative Negative [facility] Urine leukocyte esterase det ection by automated test stripOrdered By: TELMA Smith on 11-20-2022 Leukocyte esterase Auto test strip Ql (U) Negative Negative [facility] Urobilinogen Auto test strip (U) [Mass/Vol]Ordered By: TELMA Smith on 11-20-2022 Urobilinogen (U) [Mass/Vol] Normal mg/dL Normal [facility] pH Auto test strip (U)Ordere d By: TELMA Smith on 11-20-2022 pH (U) 6.5 [pH] 5.0-9.0 [facility] Amphetamine Screen Ql (U)Ord ered By: MARY KAY CANTU on 11-19-2022 Amphetamines Ql (U) Negative Negative [facility] Barbiturates [Presence] in U rine by Screen methodOrdered By: MARY KAY CANTU on 11-19-2022 Barbiturates Screen Ql (U) Negative Negative [facility] Benzodiazepines Screen Ql (U )Ordered By: MARY KAY CANTU on 11-19-2022 Benzodiazepines Ql (U) Negative Negative [facility] Benzoylecgonine [Presence] i n Urine by Screen methodOrdered By: MARY KAY CANTU on 11-19-2022 Benzoylecgonine Screen Ql (U) Negative Negative [facility] Bilirubin Test strip Ql (U)O rdered By: MARY KAY CANTU on 11-19-2022 Bilirubin Ql (U) Negative Negative [facility] Color Auto (U)Ordered By: LJ CANTU on 11-19-2022 Color (U) Yellow Yellow [facility] fibronectinOrdered By: MARY KAY CANTU on 11-19-2022 Fibronectin. (Vag fld) [Mass/Vol] Positive Negative [facility] Ketones Auto test strip (U) [Mass/Vol]Ordered By: MARY KAY CANTU on 11-19-2022 Ketones (U) [Mass/Vol] Trace Negative [facility] Nitrite Test strip Ql (U)Ord ered By: MARY KAY CANTU on 11-19-2022 Nitrite Ql (U) Negative Negative [facility] Opiates [Presence] in Urine by Screen methodOrdered By: MARY KAY CANTU on 11-19-2022 Opiates Screen Ql (U) Negative Negative [facility] Phencyclidine Screen Ql (U)O rdered By: MARY KAY CANTU on 11-19-2022 Phencyclidine Ql (U) Negative Negative [facility] Comment on above: These are unconfirme d results and should not be used for legal purposes. Drug Cut-Off Concentration: AMPH 1000 ng/mL FAVIOLA 200 ng/mL TAH 200 ng/mL COCM 300 ng/mL OP 300 ng/mL PCP 25 ng/mL Protein Auto test strip (U) [Mass/Vol]Ordered By: MARY KAY CANTU on 11-19-2022 Protein (U) [Mass/Vol] Negative Negative [facility] Specific gravity Auto test s trip (U) [Rel density]Ordered By: MARY KAY CANTU on 11-19-2022 Specific gravity (U) [Rel density] 1.017 1.001-1.03 0 [facility] Urine clarity by refractomet ry automatedOrdered By: MARY KAY CANTU on 11-19-2022 Clarity Refractometry automated (U) Clear Clear [facility] Urine glucose measurement by automated test strip (mass/volume)Ordered By: MARY KAY CANTU on 11-19-2022 Glucose Auto test strip (U) [Mass/Vol] Normal mg/dL Normal [facility] Urine hemoglobin detection b y automated test stripOrdered By: MARY KAY CANTU on 11-19-2022 Hemoglobin Auto test strip Ql (U) Negative Negative [facility] Urine leukocyte esterase det ection by automated test stripOrdered By: MARY KAY CANTU on 11-19-2022 Leukocyte esterase Auto test strip Ql (U) Negative Negative [facility] Urobilinogen Auto test strip (U) [Mass/Vol]Ordered By: MARY KAY CANTU on 11-19-2022 Urobilinogen (U) [Mass/Vol] Normal mg/dL Normal [facility] pH Auto test strip (U)Ordere d By: MARY KAY CANTU on 11-19-2022 pH (U) 7.5 [pH] 5.0-9.0 [facility] US PREG TVon 07-14-2022 US PREG TV [...] PETRA SALCIDO Date: 2022-07-14 00:14 Normal [facility] AMYLASEon 07-13-2022 Amylase [Catalytic activity/Vol] 43 U/L Normal 25-115 [facility] Comment on above: Performed By: #### C BC #### [facility] [address] [place] [address] Dr. Moris Winter CBC AUTO DIFFon 07-13-2022 BASO # 0.0 103/ul Normal 0.0-0.1 [facility] Comment on above: Performed By: #### C BC #### [facility] [address] [place] [address] Dr. Moris Winter Basophils/100 WBC (Bld) 0.2 % Normal 0.2-2.0 [facility] Comment on above: Performed By: #### C BC #### [facility] [address] [place] [address] Dr. Moris Winter EO # 0.1 103/ul Normal 0.0-0.7 [facility] Comment on above: Performed By: #### C BC #### [facility] [address] [place] [address] Dr. Moris Winter Eosinophils/100 WBC (Bld) 1.2 % Normal 0.9-7.0 [facility] Comment on above: Performed By: #### C BC #### [facility] [address] [place] [address] Dr. Moris Winter Erythrocyte distribution width (RBC) [Ratio] 13.8 % Normal 11.0-15.0 [facility] Comment on above: Performed By: #### C BC #### [facility] [address] [place] [address] Dr. Moris Winter Hematocrit (Bld) [Volume fraction] 36.6 % Normal 36.0-48.0 [facility] Comment on above: Performed By: #### C BC #### [facility] [address] [place] [address] Dr. Moris Winter Hemoglobin (Bld) [Mass/Vol] 12.3 g/dL Normal 12.0-16.0 [facility] Comment on above: Performed By: #### C BC #### [facility] [address] [place] [address] Dr. Moris Winter IG # 0.03 10e3/ul Normal 0.00-0.03 [facility] Comment on above: Performed By: #### C BC #### [facility] [address] [place] [address] Dr. Moris Winter IG % 0.3 % Normal 0.0-0.5 [facility] Comment on above: Performed By: #### C BC #### [facility] [address] [place] [address] Dr. Moris Winter LYMPH # 2.1 103/ul Normal 1.2-3.8 [facility] Comment on above: Performed By: #### C BC #### [facility] [address] [place] [address] Dr. Moris Winter Lymphocytes/100 WBC (Bld) 24.3 % Normal 20.5-60.0 [facility] Comment on above: Performed By: #### C BC #### [facility] [address] [place] [address] Dr. Moris Winter MANUAL DIFF REQ NO Normal [facility] Comment on above: Performed By: #### C BC #### [facility] [address] [place] [address] Dr. Moris Winter MCH (RBC) [Entitic mass] 27.5 pg Normal 26.7-34.0 [facility] Comment on above: Performed By: #### C BC #### [facility] [address] [place] [address] Dr. Moris Winter MCHC (RBC) [Mass/Vol] 33.6 g/dL Normal 29.9-35.2 [facility] Comment on above: Performed By: #### C BC #### [facility] [address] [place] [address] Dr. Moris Winter MCV (RBC) [Entitic vol] 81.7 fL Normal 81.0-99.0 [facility] Comment on above: Performed By: #### C BC #### [facility] [address] [place] [address] Dr. Moris Winter MONO # 0.7 103/ul Normal 0.3-0.8 [facility] Comment on above: Performed By: #### C BC #### [facility] [address] [place] [address] Dr. Moris Winter Monocytes/100 WBC (Bld) 7.8 % Normal 1.7-12.0 [facility] Comment on above: Performed By: #### C BC #### [facility] [address] [place] [address] Dr. Moris Winter NEUT # 5.8 103/ul Normal 1.4-6.5 [facility] Comment on above: Performed By: #### C BC #### [facility] [address] [place] [address] Dr. Moris Winter Neutrophils/100 WBC (Bld) 66.2 % Normal 43.0-75.0 [facility] Comment on above: Performed By: #### C BC #### [facility] [address] [place] [address] Dr. Moris Winter Platelet mean volume (Bld) [Entitic vol] 10.2 fL Normal 9.5-13.5 [facility] Comment on above: Performed By: #### C BC #### [facility] [address] [place] [address] Dr. Moris Winter PLT 301 103/ul Normal 150-450 [facility] Comment on above: Performed By: #### C BC #### [facility] [address] [place] [address] Dr. Moris Winter RBC 4.48 106/ul Normal 4.20-5.40 [facility] Comment on above: Performed By: #### C BC #### [facility] [address] [place] [address] Dr. Moris Winter WBC 8.7 103/ul Normal 4.0-11.0 [facility] Comment on above: Performed By: #### C BC #### [facility] [address] [place] [address] Dr. Moris Winter ER URINE PROFILEon 3 Bilirubin Ql (U) Negative Normal NEGATIVE [facility] Comment on above: Performed By: #### P REGU #### [facility] [address] [place] [address] Dr. Moris Winter Clarity (U) CLEAR Normal CLEAR [facility] Comment on above: Performed By: #### P REGU #### [facility] [address] [place] [address] Dr. Moris Winter Color (U) LT. YELLOW Normal YELLOW [facility] Comment on above: Performed By: #### P REGU #### [facility] [address] [place] [address] Dr. Moris Winter ERUAHD A micrscopic examina tion will be performed if indicated. Normal [facility] Comment on above: Performed By: #### P REGU #### [facility] [address] [place] [address] Dr. Moris Winter Glucose Ql (U) Negative Normal NEGATIVE [facility] Comment on above: Performed By: #### P REGU #### [facility] [address] [place] [address] Dr. Moris Winter Hemoglobin Ql (U) Negative Normal NEGATIVE [facility] Comment on above: Performed By: #### P REGU #### [facility] [address] [place] [address] Dr. Moris Winter Ketones Ql (U) TRACE Abnormal NEGATIVE [facility] Comment on above: Performed By: #### P REGU #### [facility] [address] [place] [address] Dr. Moris Winter LEUKOCYTES TRACE Abnormal NEGATIVE [facility] Comment on above: Performed By: #### P REGU #### [facility] [address] [place] [address] Dr. Moris Winter Nitrite Ql (U) Negative Normal NEGATIVE [facility] Comment on above: Performed By: #### P REGU #### [facility] [address] [place] [address] Dr. Moris Winter pH (U) 7.0 [pH] Normal 5-9 [facility] Comment on above: Performed By: #### P REGU #### [facility] [address] [place] [address] Dr. Moris Winter SPEC GRAVITY 1.020 Normal 1.005-<=1. 025 [facility] Comment on above: Performed By: #### P REGU #### [facility] [address] [place] [address] Dr. Moris Winter UA PROTEIN Negative Normal NEGATIVE/ TRACE [facility] Comment on above: Performed By: #### P REGU #### [facility] [address] [place] [address] Dr. Moris Winter UR MICRO IND INDICATED Normal [facility] Comment on above: Performed By: #### P REGU #### [facility] [address] [place] [address] Dr. Moris Winter Urobilinogen Qn (U) 0.2 {Marcin'U}/dL Normal 0.2 - 1. 0 [facility] Comment on above: Performed By: #### P REGU #### [facility] [address] [place] [address] Dr. Moris Winter LIPASEon 07-13-2022 Lipase [Catalytic activity/Vol] 204.0 U/L Normal 73.0-393.0 [facility] Comment on above: Performed By: #### C BC #### [facility] [address] [place] [address] Dr. Moris Winter PREG QUANT HCGon 07-13-2022 HCG QUANT 1455 mIU/mL Normal [facility] Comment on above: Performed By: #### P REGU #### [facility] [address] [place] [address] Dr. Moris Winter HCG RANGE SEE BELOW Normal [facility] Comment on above: Result Comment: 5-50 0.2-1 WEEK 50-500 1-2 WEEKS 100-5,000 2-3 WEEKS 500-10,000 3-4 WEEKS 1,000-50,000 4-5 WEEKS 10,000-100,000 5-6 WEEKS 15,000-200,000 6-8 WEEKS 10,000-100,000 2-3 MONTHS Performed By: #### P REGU #### [facility] [address] [place] [address] Dr. Moris Winter URon 07-13-2022 , QUAL Positive Abnormal NEGATIVE [facility] Comment on above: Performed By: #### P REGU #### [facility] [address] [place] [address] Dr. Moris Winter PROF 14(COMP METB)on 023 Albumin [Mass/Vol] 3.3 g/dL Critically low 3.4-5.0 [facility] Comment on above: Performed By: #### C BC #### [facility] [address] [place] [address] Dr. Moris Winter Albumin/Globulin [Mass ratio] 0.7 {ratio} Normal [facility] Comment on above: Performed By: #### C BC #### [facility] [address] [place] [address] Dr. Moris Winter ALP [Catalytic activity/Vol] 86 U/L Normal 46-116 [facility] Comment on above: Performed By: #### C BC #### [facility] [address] [place] [address] Dr. Moris Winter ALT [Catalytic activity/Vol] 16 U/L Normal 14-59 [facility] Comment on above: Performed By: #### C BC #### [facility] [address] [place] [address] Dr. Moris Winter Anion gap [Moles/Vol] 14.9 mmol/L Normal e [facility] Comment on above: Performed By: #### C BC #### [facility] [address] [address] [address] Moris Winter AST [Catalytic activity/Vol] 12 U/L Critically low 15-37 [facility] Comment on above: Performed By: #### C BC #### [facility] [address] [address] [address] Moris Winter Bilirubin [Mass/Vol] 0.1 mg/dL Critically low 0.2-1.0 [facility] Comment on above: Performed By: #### C BC #### [facility] [address] [address] [address] Moris Winter Calcium [Mass/Vol] 9.3 mg/dL Normal 8.5-10.1 [facility] Comment on above: Performed By: #### C BC #### [facility] [address] [address] [address] Moris Winter Chloride [Moles/Vol] 103 mmol/L Normal 98-107 [facility] Comment on above: Performed By: #### C BC #### [facility] [address] [address] [address] Moris Winter CO2 [Moles/Vol] 25.4 mmol/L Normal 21.0-32.0 [facility] Comment on above: Performed By: #### C BC #### [facility] [address] [address] [address] Moris Winter Creatinine [Mass/Vol] 0.80 mg/dL Normal 0.55-1.02 [facility] Comment on above: Performed By: #### C BC #### [facility] [address] [address] [address] Moris Winter EGFR-AF NIGERIAN >60 Normal >=60 [facility] Comment on above: Performed By: #### C BC #### [facility] [address] [address] [address] Moris Winter EGFR-NON AF NIGERIAN >60 Normal >=60 [facility] Comment on above: Performed By: #### C BC #### [facility] [address] [address] [address] Moris Winter Globulin (S) [Mass/Vol] 4.6 g/dL Normal [facility] Comment on above: Performed By: #### C BC #### [facility] [address] [address] [address] Moris Winter Glucose [Mass/Vol] 111 mg/dL Critically high 74-106 [facility] Comment on above: Performed By: #### C BC #### [facility] [address] [place] [address] Dr. Moris Winter Potassium [Moles/Vol] 3.3 mmol/L Critically low 3.5-5.1 [facility] Comment on above: Performed By: #### C BC #### [facility] [address] [place] [address] Dr. Moris Winter Protein [Mass/Vol] 7.9 g/dL Normal 6.4-8.2 [facility] Comment on above: Performed By: #### C BC #### [facility] [address] [place] [address] Dr. Moris Winter Sodium [Moles/Vol] 140 mmol/L Normal 136-145 [facility] Comment on above: Performed By: #### C BC #### [facility] [address] [place] [address] Dr. Moris Winter Urea nitrogen [Mass/Vol] 10.0 mg/dL Normal 7.0-18.0 [facility] Comment on above: Performed By: #### C BC #### [facility] [address] [place] [address] Dr. Moris Winter Urea nitrogen/Creatinine [Mass ratio] 12.5 mg/mg Normal [facility] Comment on above: Performed By: #### C BC #### [facility] [address] [place] [address] Dr. Moris Winter URINE MICROSCOPIC ONLYon BACTERIA TRACE Abnormal NONE SEEN [facility] Comment on above: Performed By: #### P REGU #### [facility] [address] [place] [address] Dr. Moris Winter Bacteria identified Cx Nom (U) NOT INDICATED Normal [facility] Comment on above: Performed By: #### P REGU #### [facility] [address] [place] [address] Dr. Moris Winter CAST NONE SEEN Normal NONE SEEN [facility] Comment on above: Performed By: #### P REGU #### [facility] [address] [address] [address] Moris Winter Crystals LM Nom (Urine sed) NONE SEEN Normal NONE SEEN [facility] Comment on above: Performed By: #### P REGU #### [facility] [address] [place] [address] Dr. Moris Winter Epithelial cells LM Ql (Urine sed) FEW Abnormal NONE SEEN /RARE [facility] Comment on above: Performed By: #### P REGU #### [facility] [address] [place] [address] Dr. Moris Winter MUCOUS NONE SEEN Normal NONE SEEN [facility] Comment on above: Performed By: #### P REGU #### [facility] [address] [place] [address] Dr. Moris Winter RBC 0-2 Normal 0-2 [facility] Comment on above: Performed By: #### P REGU #### [facility] [address] [place] [address] Dr. Moris Winter WBC 2-5 Abnormal NONE SEEN [facility] Comment on above: Performed By: #### P REGU #### [facility] [address] [place] [address] Dr. Moris Winter Cholesterol [Mass/volume] in Serum or PlasmaOrdered By: Nataly Toure on 06-16-2022 Cholesterol [Mass/Vol] 189 mg/dL 140-200 [facility] Comment on above: Chol less than 200 m g/dl low riskChol 201-239 mg/dl borderline riskChol 240 mg/dl and greater high risk Cholesterol in LDL Calc [Mas s/Vol]Ordered By: Nataly Toure on 06-16-2022 Cholesterol in LDL [Mass/Vol] 84 mg/dL 0-100 [facility] Comment on above: LDL ATP III CLASSIFI CATIONLDL less than 100 mg/dL OptimalLDL 100-129 mg/dL Near or above optimalLDL 130-159 mg/dL Borderline highLDL 160-189 mg/dL HighLDL greater than 189 mg/dL Very high Cholesterol in VLDL Calc [Ma ss/Vol]Ordered By: Nataly Toure on 06-16-2022 Cholesterol in VLDL [Mass/Vol] 54 mg/dL [facility] Serum or plasma high density lipoprotein (HDL) cholesterol measurementOrdered By: Nataly Toure on 06-16-2022 Cholesterol in HDL [Mass/Vol] 50 mg/dL 35-85 [facility] Comment on above: HDL CHOL ATP-III CLA SSIFICATION Cardiovascular RiskHDL > or equal to 60 mg/dL LOWHDL < 40 mg/dL HIGH Serum or plasma total choles terol/high density lipoprotein (HDL) cholesterol mass ratOrdered By: Nataly Toure on 06-16-2022 Cholesterol.total/Chol esterol in HDL [Mass ratio] 3.8 {ratio} <5.0 [facility] Triglyceride [Mass/volume] i n Serum or PlasmaOrdered By: Nataly Toure on 06-16-2022 Triglyceride [Mass/Vol] 273 mg/dL 0-149 [facility] Comment on above: TRIG ATP III CLASSIF ICATIONTRIG less than 150 mg/dL NormalTRIG 150-199 mg/dL Borderline highTRIG 200-500 mg/dL High TRIG greater than 500 mg/dL Very highStandard traceable to the Center for Disease Conrtrol and Prevention (CDC) test method. Alanine aminotransferase [En zymatic activity/volume] in Serum or PlasmaOrdered By: Nataly Toure on 06-04-2022 ALT [Catalytic activity/Vol] 7 U/L 7-52 [facility] Albumin [Mass/volume] in Ser um or Plasma by Bromocresol green (BCG) dye binding methoOrdered By: Nataly Toure on 06-04-2022 Albumin BCG dye [Mass/Vol] 3.8 g/dL 3.5-5.7 [facility] Alkaline phosphatase [Enzyma tic activity/volume] in Serum or PlasmaOrdered By: Nataly Toure on 06-04-2022 ALP [Catalytic activity/Vol] 78 U/L 34-104 [facility] Amylase [Enzymatic activity/ volume] in Serum or PlasmaOrdered By: Nataly Toure on 06-04-2022 Amylase [Catalytic activity/Vol] 29 U/L 29-103 [facility] Aspartate aminotransferase [ Enzymatic activity/volume] in Serum or PlasmaOrdered By: Nataly Spasic on 06-04-2022 AST [Catalytic activity/Vol] 10 U/L 13-39 [facility] Basophils Auto (Bld) [#/Vol] Ordered By: Nataly Spasic on 06-04-2022 Basophils (Bld) [#/Vol] 0.1 10*3/uL 0.0-0.2 [facility] Basophils/100 WBC Auto (Bld) Ordered By: Nataly Spasic on 06-04-2022 Basophils/100 WBC (Bld) 1.4 % . [facility] Bilirubin.total [Mass/volume ] in Serum or PlasmaOrdered By: Nataly Jerniganc on 06-04-2022 Bilirubin [Mass/Vol] 0.3 mg/dL 0.3-1.0 [facility] Calcium [Mass/volume] in Ser um or PlasmaOrdered By: Nataly Junesic on 06-04-2022 Calcium [Mass/Vol] 9.3 mg/dL 8.6-10.3 [facility] Carbon dioxide, total [Moles /volume] in Serum or PlasmaOrdered By: Nataly Spasic on 06-04-2022 CO2 [Moles/Vol] 29.6 mmol/L 21.0-31.0 [facility] Chloride [Moles/volume] in S rosa or PlasmaOrdered By: Nataly Spasic on 06-04-2022 Chloride [Moles/Vol] 99 mmol/L 98-107 [facility] Creatinine [Mass/volume] in Serum or PlasmaOrdered By: Nataly Spasic on 06-04-2022 Creatinine [Mass/Vol] 0.69 mg/dL 0.60-1.20 [facility] Eosinophils Auto (Bld) [#/Vo l]Ordered By: Nataly Spasic on 06-04-2022 Eosinophils (Bld) [#/Vol] 0.2 10*3/uL 0.0-0.45 [facility] Eosinophils/100 WBC Auto (Bl d)Ordered By: Nataly Toure on 06-04-2022 Eosinophils/100 WBC (Bld) 1.8 % . [facility] Erythrocyte distribution wid th Auto (RBC) [Ratio]Ordered By: Nataly Toure on 06-04-2022 Erythrocyte distribution width (RBC) [Ratio] 14.6 % 11.9-15.3 [facility] Ferritin [Mass/volume] in Se rum or PlasmaOrdered By: Nataly Toure on 06-04-2022 Ferritin [Mass/Vol] 12.7 ng/mL 11.0-306.8 [facility] Globulin Calc (S) [Mass/Vol] Ordered By: Nataly Toure on 06-04-2022 Globulin (S) [Mass/Vol] 3.6 g/dL [facility] Glucose [Mass/volume] in Ser um or PlasmaOrdered By: Nataly Toure on 06-04-2022 Glucose [Mass/Vol] 103 mg/dL 70-100 [facility] Comment on above: ADA recommended refe rence rangeRandom Glucose Reference Range is dependent on time and content of last meal. Glucose of more than 200 mg/dL in a nonstressed, ambulatory subject supports the diagnosis of Diabetes Mellitus. Hematocrit Auto (Bld) [Volum e fraction]Ordered By: Nataly Toure on 06-04-2022 Hematocrit (Bld) [Volume fraction] 38.2 % 34.0-46.4 [facility] Hemoglobin [Mass/volume] in BloodOrdered By: Nataly Toure on 06-04-2022 Hemoglobin (Bld) [Mass/Vol] 12.7 g/dL 11.8-15.4 [facility] Leukocytes [#/volume] correc kee for nucleated erythrocytes in Blood by Automated counOrdered By: Nataly Toure on 06-04-2022 WBC corrected for nucl RBC Auto (Bld) [#/Vol] 8.7 10*3/uL 3.8-11.6 [facility] Lipase [Enzymatic activity/v olume] in Serum or PlasmaOrdered By: Nataly Jerniganc on 06-04-2022 Lipase [Catalytic activity/Vol] 38.0 U/L 11.0-82.0 [facility] Lymphocytes Auto (Bld) [#/Vo l]Ordered By: Nataly Spasic on 06-04-2022 Lymphocytes (Bld) [#/Vol] 1.7 10*3/uL 1.00-4.8 [facility] Lymphocytes/100 WBC Auto (Bl d)Ordered By: Nataly Spasic on 06-04-2022 Lymphocytes/100 WBC (Bld) 19.7 % . [facility] MCH Auto (RBC) [Entitic mass ]Ordered By: Nataly Junesic on 06-04-2022 MCH (RBC) [Entitic mass] 26.8 pg 24.7-34.3 [facility] MCHC Auto (RBC) [Mass/Vol]Or dered By: Nataly Shayleesic on 06-04-2022 MCHC (RBC) [Mass/Vol] 33.2 g/dL 32.0-35.0 [facility] MCV Auto (RBC) [Entitic vol] Ordered By: Nataly Junesic on 06-04-2022 MCV (RBC) [Entitic vol] 80.7 fL 80-100 [facility] Monocytes Auto (Bld) [#/Vol] Ordered By: Nataly Spasic on 06-04-2022 Monocytes (Bld) [#/Vol] 0.5 10*3/uL 0.0-0.8 [facility] Monocytes/100 WBC Auto (Bld) Ordered By: Nataly Spasic on 06-04-2022 Monocytes/100 WBC (Bld) 6.1 % . [facility] Neutrophils Auto (Bld) [#/Vo l]Ordered By: Nataly Junesic on 06-04-2022 Neutrophils (Bld) [#/Vol] 6.2 10*3/uL 1.8-7.7 [facility] Neutrophils/100 WBC Auto (Bl d)Ordered By: Nataly Spasic on 06-04-2022 Neutrophils/100 WBC (Bld) 71.0 % . [facility] No Panel InformationOrdered By: Nataly Jerniganc on 06-04-2022 Estimated GFR (CKD-EPI) > 60.0 mL/Min [facility] Creatinine Clearance (Chem N/A [facility] Nucleated erythrocytes [Pres ence] in Blood by Automated countOrdered By: Nataly Toure on 06-04-2022 Nucleated RBC Auto Ql (Bld) 0.2 /100{WBC} 0-0.5 [facility] Platelet mean volume Auto (B ld) [Entitic vol]Ordered By: Naatly Toure on 06-04-2022 Platelet mean volume (Bld) [Entitic vol] 10.2 fL 6.3-10.7 [facility] Platelets Auto (Bld) [#/Vol] Ordered By: Nataly Toure on 06-04-2022 Platelets (Bld) [#/Vol] 245 10*3/uL 150-450 [facility] Potassium [Moles/volume] in Serum or PlasmaOrdered By: Nataly Toure on 06-04-2022 Potassium [Moles/Vol] 4.5 mmol/L 3.5-5.1 [facility] Protein [Mass/volume] in Ser um or PlasmaOrdered By: Nataly Toure on 06-04-2022 Protein [Mass/Vol] 7.4 g/dL 6.4-8.9 [facility] RBC Auto (Bld) [#/Vol]Ordere d By: Nataly Toure on 06-04-2022 RBC (Bld) [#/Vol] 4.73 10*6/uL 3.60-5.00 [facility] Serum or plasma albumin/glob ulin mass ratioOrdered By: Nataly Toure on 06-04-2022 Albumin/Globulin [Mass ratio] 1.1 {ratio} [facility] Serum or plasma anion gap de terminationOrdered By: Nataly Toure on 06-04-2022 Anion gap [Moles/Vol] 10.9 mmol/L 6.0-15.0 [facility] Serum or plasma insulin nikita urement (units/volume)Ordered By: Nataly Toure on 06-04-2022 Insulin Qn 128.0 u[iU]/mL 2.6-24.9 [facility] Comment on above: Performed at: [facility] [address] [id number] Director: Sam Lopez PhD, Phone: [phone] Sodium [Moles/volume] in Ser um or PlasmaOrdered By: Nataly Toure on 06-04-2022 Sodium [Moles/Vol] 135 mmol/L 136-145 [facility] Urea nitrogen [Mass/volume] in Serum or PlasmaOrdered By: Nataly Toure on 06-04-2022 Urea nitrogen [Mass/Vol] 9 mg/dL 7-25 [facility] WBC Auto (Bld) [#/Vol]Ordere d By: Nataly Toure on 06-04-2022 WBC (Bld) [#/Vol] 8.7 10*3/uL 3.8-11.6 [facility] [facility] AMYLASEon 06-03-2022 Amylase [Catalytic activity/Vol] 37 U/L Normal 25-115 [facility] Comment on above: Performed By: #### L IPA, CMP, KIM #### [facility] [address] [address] [address] Moris Winter CBC AUTO DIFFon 06-03-2022 BASO # 0.0 103/ul Normal 0.0-0.1 [facility] Comment on above: Performed By: #### C BC #### [facility] [address] [address] [address] Moris Winter Basophils/100 WBC (Bld) 0.1 % Critically low 0.2-2.0 [facility] Comment on above: Performed By: #### C BC #### [facility] [address] [address] [address] Moris Winter EO # 0.1 103/ul Normal 0.0-0.7 [facility] Comment on above: Performed By: #### C BC #### [facility] [address] [address] [address] Moris Winter Eosinophils/100 WBC (Bld) 1.6 % Normal 0.9-7.0 [facility] Comment on above: Performed By: #### C BC #### [facility] [address] [address] [address] Moris Winter Erythrocyte distribution width (RBC) [Ratio] 13.5 % Normal 11.0-15.0 [facility] Comment on above: Performed By: #### C BC #### [facility] [address] [place] [address] Dr. Moris Winter Hematocrit (Bld) [Volume fraction] 36.3 % Normal 36.0-48.0 [facility] Comment on above: Performed By: #### C BC #### [facility] [address] [place] [address] Dr. Moris Winter Hemoglobin (Bld) [Mass/Vol] 11.8 g/dL Critically low 12.0-16.0 [facility] Comment on above: Performed By: #### C BC #### [facility] [address] [place] [address] Dr. Moris Winter IG # 0.03 10e3/ul Normal 0.00-0.03 [facility] Comment on above: Performed By: #### C BC #### [facility] [address] [place] [address] Dr. Moris Winter IG % 0.4 % Normal 0.0-0.5 [facility] Comment on above: Performed By: #### C BC #### [facility] [address] [place] [address] Dr. Moris Winter LYMPH # 2.5 103/ul Normal 1.2-3.8 [facility] Comment on above: Performed By: #### C BC #### [facility] [address] [place] [address] Dr. Moris Winter Lymphocytes/100 WBC (Bld) 33.2 % Normal 20.5-60.0 [facility] Comment on above: Performed By: #### C BC #### [facility] [address] [place] [address] Dr. Moris Winter MANUAL DIFF REQ NO Normal [facility] Comment on above: Performed By: #### C BC #### [facility] [address] [place] [address] Dr. Moris Winter MCH (RBC) [Entitic mass] 26.2 pg Critically low 26.7-34.0 [facility] Comment on above: Performed By: #### C BC #### [facility] [address] [place] [address] Dr. Moris Winter MCHC (RBC) [Mass/Vol] 32.5 g/dL Normal 29.9-35.2 [facility] Comment on above: Performed By: #### C BC #### [facility] [address] [place] [address] Dr. Moris Winter MCV (RBC) [Entitic vol] 80.7 fL Critically low 81.0-99.0 [facility] Comment on above: Performed By: #### C BC #### [facility] [address] [place] [address] Dr. Moris Winter MONO # 0.7 103/ul Normal 0.3-0.8 [facility] Comment on above: Performed By: #### C BC #### [facility] [address] [place] [address] Dr. Moris Winter Monocytes/100 WBC (Bld) 9.9 % Normal 1.7-12.0 [facility] Comment on above: Performed By: #### C BC #### [facility] [address] [place] [address] Dr. Moris Winter NEUT # 4.1 103/ul Normal 1.4-6.5 [facility] Comment on above: Performed By: #### C BC #### [facility] [address] [place] [address] Dr. Moris Winter Neutrophils/100 WBC (Bld) 54.8 % Normal 43.0-75.0 [facility] Comment on above: Performed By: #### C BC #### [facility] [address] [place] [address] Dr. Moris Winter Platelet mean volume (Bld) [Entitic vol] 10.7 fL Normal 9.5-13.5 [facility] Comment on above: Performed By: #### C BC #### [facility] [address] [place], [place] [address] Dr. Moris Winter PLT 248 103/ul Normal 150-450 [facility] Comment on above: Performed By: #### C BC #### [facility] [address] [address] [address] Moris Winter RBC 4.50 106/ul Normal 4.20-5.40 [facility] Comment on above: Performed By: #### C BC #### [facility] [id number] Moris Winter WBC 7.5 103/ul Normal 4.0-11.0 [facility] Comment on above: Performed By: #### C BC #### [facility] [address] [place] [address] ABD/PELV W CONon [...] NANCI COULTER Date: 2022-06-03 02:19 Normal [facility] ER URINE PROFILEon 3 Bilirubin Ql (U) Negative Normal NEGATIVE [facility] Comment on above: Performed By: #### C BC #### [facility] [address] [place] [address] Dr. Moris Winter Clarity (U) CLEAR Normal CLEAR [facility] Comment on above: Performed By: #### C BC #### [facility] [address] [place] [address] Dr. Moris Winter Color (U) LT. YELLOW Normal YELLOW [facility] Comment on above: Performed By: #### C BC #### [facility] [address] [place] [address] Dr. Moris Winter ERUAHD A micrscopic examina tion will be performed if indicated. Normal [facility] Comment on above: Performed By: #### C BC #### [facility] [address] [place] [address] Dr. Moris Winter Glucose Ql (U) Negative Normal NEGATIVE [facility] Comment on above: Performed By: #### C BC #### [facility] [address] [place] [address] Dr. Moris Winter Hemoglobin Ql (U) Negative Normal NEGATIVE [facility] Comment on above: Performed By: #### C BC #### [facility] [address] [place] [address] Dr. Moris Winter Ketones Ql (U) Negative Normal NEGATIVE [facility] Comment on above: Performed By: #### C BC #### [facility] [address] [place] [address] Dr. Moris Winter LEUKOCYTES Negative Normal NEGATIVE [facility] Comment on above: Performed By: #### C BC #### [facility] [address] [place] [address] Dr. Moris Winter Nitrite Ql (U) Negative Normal NEGATIVE [facility] Comment on above: Performed By: #### C BC #### [facility] [address] [place] [address] Dr. Moris Winter pH (U) 7.0 [pH] Normal 5-9 [facility] Comment on above: Performed By: #### C BC #### [facility] [address] [place] [address] Dr. Moris Winter SPEC GRAVITY 1.015 Normal 1.005-<=1. 025 [facility] Comment on above: Performed By: #### C BC #### [facility] [address] [place] [address] Dr. Moris Winter UA PROTEIN Negative Normal NEGATIVE/ TRACE [facility] Comment on above: Performed By: #### C BC #### [facility] [address] [place] [address] Dr. Moris Winter UR MICRO IND NOT INDICATED Normal [facility] Comment on above: Performed By: #### C BC #### [facility] [address] [place] [address] Dr. Moris Winter Urobilinogen Qn (U) 1.0 {Marcin'U}/dL Normal 0.2 - 1. 0 [facility] Comment on above: Performed By: #### C BC #### [facility] [address] [place] [address] Dr. Moris Winter LACTATE/LACTIC ACIDon 2022 Lactate [Moles/Vol] 1.0 mmol/L Normal 0.4-2.0 [facility] Comment on above: Performed By: #### L ACT #### [facility] [address] [place] [address] Dr. Moris Winter LIPASEon 06-03-2022 Lipase [Catalytic activity/Vol] 112.0 U/L Normal 73.0-393.0 [facility] Comment on above: Performed By: #### L IPA, CMP, KIM #### [facility] [address] [place] [address] Dr. Moris Winter URon 06-03-2022 , QUAL Negative Normal NEGATIVE [facility] Comment on above: Performed By: #### P REGU #### [facility] [address] [address] [address] Moris Winter PROF 14(COMP METB)on 023 Albumin [Mass/Vol] 2.9 g/dL Critically low 3.4-5.0 [facility] Comment on above: Performed By: #### L IPA, CMP, KIM #### [facility] [address] [address] [address] Moris Winter Albumin/Globulin [Mass ratio] 0.6 {ratio} Normal [facility] Comment on above: Performed By: #### L IPA, CMP, KIM #### [facility] [address] [address] [address] Moris Winter ALP [Catalytic activity/Vol] 86 U/L Normal 46-116 [facility] Comment on above: Performed By: #### L IPA, CMP, KIM #### [facility] [address] [place] [address] Dr. Moris Winter ALT [Catalytic activity/Vol] 14 U/L Normal 14-59 [facility] Comment on above: Performed By: #### L IPA, CMP, KIM #### [facility] [address] [address] [address] Moris Winter Anion gap [Moles/Vol] 10.9 mmol/L Normal [facility] Comment on above: Performed By: #### L IPA, CMP, KIM #### [facility] [address] [address] [address] Moris Winter AST [Catalytic activity/Vol] 12 U/L Critically low 15-37 [facility] Comment on above: Performed By: #### L IPA, CMP, KIM #### [facility] [address] [address] [address] Moris Winter Bilirubin [Mass/Vol] 0.2 mg/dL Normal 0.2-1.0 [facility] Comment on above: Performed By: #### L IPA, CMP, KIM #### [facility] [address] [address] [address] Moris Winter Calcium [Mass/Vol] 9.0 mg/dL Normal 8.5-10.1 [facility] Comment on above: Performed By: #### L IPA, CMP, KIM #### [facility] [address] [address] [address] Moris Winter Chloride [Moles/Vol] 102 mmol/L Normal 98-107 [facility] Comment on above: Performed By: #### L IPA, CMP, KIM #### [facility] [address] [address] [address] Moris Winter CO2 [Moles/Vol] 29.6 mmol/L Normal 21.0-32.0 [facility] Comment on above: Performed By: #### L IPA, CMP, KIM #### [facility] [address] [place] [address] Dr. Moris Winter Creatinine [Mass/Vol] 0.73 mg/dL Normal 0.55-1.02 [facility] Comment on above: Performed By: #### L IPA, CMP, KIM #### [facility] [address] [place] [address] Dr. Moris Winter EGFR-AF NIGERIAN >60 Normal >=60 [facility] Comment on above: Performed By: #### L IPA, CMP, KIM #### [facility] [address] [place] [address] Dr. Moris Winter EGFR-NON AF NIGERIAN >60 Normal >=60 [facility] Comment on above: Performed By: #### L IPA, CMP, KIM #### [facility] [address] [place] [address] Dr. Moris Winter Globulin (S) [Mass/Vol] 4.8 g/dL Normal [facility] Comment on above: Performed By: #### L IPA, CMP, KIM #### [facility] [address] [place] [address] Dr. Moris Winter Glucose [Mass/Vol] 121 mg/dL Critically high 74-106 [facility] Comment on above: Performed By: #### L IPA, CMP, KIM #### [facility] [address] [address] [address] Moris Winter Potassium [Moles/Vol] 3.5 mmol/L Normal 3.5-5.1 [facility] Comment on above: Performed By: #### L IPA, CMP, KIM #### [facility] [address] [address] [address] Moris Winter Protein [Mass/Vol] 7.7 g/dL Normal 6.4-8.2 [facility] Comment on above: Performed By: #### L IPA, CMP, KIM #### [facility] [address] [address] [address] Moris Winter Sodium [Moles/Vol] 139 mmol/L Normal 136-145 [facility] Comment on above: Performed By: #### L IPA, CMP, KIM #### [facility] [address] [address] [address] Moris Winter Urea nitrogen [Mass/Vol] 11.0 mg/dL Normal 7.0-18.0 [facility] Comment on above: Performed By: #### L IPA, CMP, KIM #### [facility] [address] [address] [address] Moris Winter Urea nitrogen/Creatinine [Mass ratio] 15.1 mg/mg Normal [facility] Comment on above: Performed By: #### L IPA, CMP, KIM #### [facility] [address] [address] [address] Moris Winter Alanine aminotransferase [En zymatic activity/volume] in Serum or PlasmaOrdered By: Nataly Toure on 05-28-2022 ALT [Catalytic activity/Vol] 10 U/L 7-52 [facility] Albumin [Mass/volume] in Ser um or Plasma by Bromocresol green (BCG) dye binding methoOrdered By: Nataly Toure on 05-28-2022 Albumin BCG dye [Mass/Vol] 3.9 g/dL 3.5-5.7 [facility] Alkaline phosphatase [Enzyma tic activity/volume] in Serum or PlasmaOrdered By: Nataly Toure on 05-28-2022 ALP [Catalytic activity/Vol] 87 U/L 34-104 [facility] Aspartate aminotransferase [ Enzymatic activity/volume] in Serum or PlasmaOrdered By: Nataly Toure on 05-28-2022 AST [Catalytic activity/Vol] 11 U/L 13-39 [facility] Basophils Auto (Bld) [#/Vol] Ordered By: Nataly Toure on 05-28-2022 Basophils (Bld) [#/Vol] 0.0 10*3/uL 0.0-0.2 [facility] Basophils/100 WBC Auto (Bld) Ordered By: Nataly Toure on 05-28-2022 Basophils/100 WBC (Bld) 0.6 % . [facility] Bilirubin.total [Mass/volume ] in Serum or PlasmaOrdered By: Nataly Toure on 05-28-2022 Bilirubin [Mass/Vol] 0.4 mg/dL 0.3-1.0 [facility] Calcium [Mass/volume] in Ser um or PlasmaOrdered By: Nataly Toure on 05-28-2022 Calcium [Mass/Vol] 9.1 mg/dL 8.6-10.3 [facility] Carbon dioxide, total [Moles /volume] in Serum or PlasmaOrdered By: Nataly Toure on 05-28-2022 CO2 [Moles/Vol] 27.6 mmol/L 21.0-31.0 [facility] Chloride [Moles/volume] in S rosa or PlasmaOrdered By: Nataly Toure on 05-28-2022 Chloride [Moles/Vol] 102 mmol/L 98-107 [facility] Cholesterol [Mass/volume] in Serum or PlasmaOrdered By: Nataly Toure on 05-28-2022 Cholesterol [Mass/Vol] 269 mg/dL 140-200 [facility] Comment on above: Chol less than 200 m g/dl low riskChol 201-239 mg/dl borderline riskChol 240 mg/dl and greater high risk Cholesterol in LDL Calc [Mas s/Vol]Ordered By: Nataly Toure on 05-28-2022 Cholesterol in LDL [Mass/Vol] TNP [facility] Comment on above: Test not performed Cholesterol in LDL [Mass/vol ume] in Serum or PlasmaOrdered By: Nataly Toure on 05-28-2022 Cholesterol in LDL [Mass/Vol] 82 mg/dL 0-100 [facility] Comment on above: LDL ATP III CLASSIFI CATIONLDL less than 100 mg/dL OptimalLDL 100-129 mg/dL Near or above optimalLDL 130-159 mg/dL Borderline highLDL 160-189 mg/dL HighLDL greater than 189 mg/dL Very high Cholesterol in VLDL Calc [Ma ss/Vol]Ordered By: Nataly Toure on 05-28-2022 Cholesterol in VLDL [Mass/Vol] 187 mg/dL [facility] Creatinine [Mass/volume] in Serum or PlasmaOrdered By: Nataly Toure on 05-28-2022 Creatinine [Mass/Vol] 0.68 mg/dL 0.60-1.20 [facility] Eosinophils Auto (Bld) [#/Vo l]Ordered By: Nataly Toure on 05-28-2022 Eosinophils (Bld) [#/Vol] 0.2 10*3/uL 0.0-0.45 [facility] Eosinophils/100 WBC Auto (Bl d)Ordered By: Nataly Toure on 05-28-2022 Eosinophils/100 WBC (Bld) 2.1 % . [facility] Erythrocyte distribution wid th Auto (RBC) [Ratio]Ordered By: Nataly Toure on 05-28-2022 Erythrocyte distribution width (RBC) [Ratio] 14.5 % 11.9-15.3 [facility] Free thyroxine indexOrdered By: Nataly Toure on 05-28-2022 Free T4 index Calc [Mass/Vol] 2.9 1.2-4.9 [facility] Globulin Calc (S) [Mass/Vol] Ordered By: Nataly Toure on 05-28-2022 Globulin (S) [Mass/Vol] 3.6 g/dL [facility] Glucose [Mass/volume] in Ser um or PlasmaOrdered By: Nataly Toure on 05-28-2022 Glucose [Mass/Vol] 95 mg/dL 70-100 [facility] Comment on above: ADA recommended [...] from glycated hemoglobin (Bld) [Mass/Vol] 111 mg/dL [facility] Hematocrit Auto (Bld) [Volum e fraction]Ordered By: Nataly Toure on 05-28-2022 Hematocrit (Bld) [Volume fraction] 38.2 % 34.0-46.4 [facility] Hemoglobin A1c percentageOrd ered By: Nataly Toure on 05-28-2022 HbA1c (Bld) [Mass fraction] 5.5 % 4.3-5.6 [facility] Comment on above: Increased risk for d iabetes: 5.7 - 6.4diabetes: >6.4glycemic control for adults with diabetes: <7.0 Hemoglobin [Mass/volume] in BloodOrdered By: Nataly Toure on 05-28-2022 Hemoglobin (Bld) [Mass/Vol] 12.9 g/dL 11.8-15.4 [facility] Iron [Mass/volume] in Serum or PlasmaOrdered By: Nataly Toure on 05-28-2022 Iron [Mass/Vol] 30 ug/dL 50-212 [facility] Iron binding capacity [Mass/ volume] in Serum or PlasmaOrdered By: Nataly Toure on 05-28-2022 Iron binding capacity [Mass/Vol] 449 ug/dL 255-450 [facility] Iron saturation [Mass Fracti on] in Serum or PlasmaOrdered By: Nataly Toure on 05-28-2022 Iron saturation [Mass fraction] 6.7 % 20-50 [facility] Leukocytes [#/volume] correc kee for nucleated erythrocytes in Blood by Automated counOrdered By: Nataly Toure on 05-28-2022 WBC corrected for nucl RBC Auto (Bld) [#/Vol] 7.3 10*3/uL 3.8-11.6 [facility] Lymphocytes Auto (Bld) [#/Vo l]Ordered By: Nataly Toure on 05-28-2022 Lymphocytes (Bld) [#/Vol] 1.9 10*3/uL 1.00-4.8 [facility] Lymphocytes/100 WBC Auto (Bl d)Ordered By: Nataly Toure on 05-28-2022 Lymphocytes/100 WBC (Bld) 26.6 % . [facility] MCH Auto (RBC) [Entitic mass ]Ordered By: Nataly Toure on 05-28-2022 MCH (RBC) [Entitic mass] 26.9 pg 24.7-34.3 [facility] MCHC Auto (RBC) [Mass/Vol]Or dered By: Nataly Toure on 05-28-2022 MCHC (RBC) [Mass/Vol] 33.8 g/dL 32.0-35.0 [facility] MCV Auto (RBC) [Entitic vol] Ordered By: Nataly Toure on 05-28-2022 MCV (RBC) [Entitic vol] 79.6 fL 80-100 [facility] Monocytes Auto (Bld) [#/Vol] Ordered By: Nataly Toure on 05-28-2022 Monocytes (Bld) [#/Vol] 0.6 10*3/uL 0.0-0.8 [facility] Monocytes/100 WBC Auto (Bld) Ordered By: Nataly Toure on 05-28-2022 Monocytes/100 WBC (Bld) 7.7 % . [facility] Neutrophils Auto (Bld) [#/Vo l]Ordered By: Nataly Toure on 05-28-2022 Neutrophils (Bld) [#/Vol] 4.6 10*3/uL 1.8-7.7 [facility] Neutrophils/100 WBC Auto (Bl d)Ordered By: Nataly Toure on 05-28-2022 Neutrophils/100 WBC (Bld) 63.0 % . [facility] No Panel InformationOrdered By: Nataly Toure on 05-28-2022 Estimated GFR (CKD-EPI) > 60.0 mL/Min [facility] Free Thyroxine (T4) Direct 10.8 ug/dL 4.5-12.0 [facility] Creatinine Clearance (Chem N/A [facility] Nucleated erythrocytes [Pres ence] in Blood by Automated countOrdered By: Nataly Toure on 05-28-2022 Nucleated RBC Auto Ql (Bld) 0.4 /100{WBC} 0-0.5 [facility] Platelet mean volume Auto (B ld) [Entitic vol]Ordered By: Nataly Toure on 05-28-2022 Platelet mean volume (Bld) [Entitic vol] 9.0 fL 6.3-10.7 [facility] Platelets Auto (Bld) [#/Vol] Ordered By: Nataly Toure on 05-28-2022 Platelets (Bld) [#/Vol] 247 10*3/uL 150-450 [facility] Potassium [Moles/volume] in Serum or PlasmaOrdered By: Nataly Toure on 05-28-2022 Potassium [Moles/Vol] 3.8 mmol/L 3.5-5.1 [facility] Protein [Mass/volume] in Ser um or PlasmaOrdered By: Nataly Toure on 05-28-2022 Protein [Mass/Vol] 7.5 g/dL 6.4-8.9 [facility] RBC Auto (Bld) [#/Vol]Ordere d By: Nataly Toure on 05-28-2022 RBC (Bld) [#/Vol] 4.80 10*6/uL 3.60-5.00 [facility] Serum or plasma albumin/glob ulin mass ratioOrdered By: Nataly Toure on 05-28-2022 Albumin/Globulin [Mass ratio] 1.1 {ratio} [facility] Serum or plasma anion gap de terminationOrdered By: Nataly Tuore on 05-28-2022 Anion gap [Moles/Vol] 12.2 mmol/L 6.0-15.0 [facility] Serum or plasma high density lipoprotein (HDL) cholesterol measurementOrdered By: Nataly Toure on 05-28-2022 Cholesterol in HDL [Mass/Vol] 42 mg/dL 35-85 [facility] Comment on above: HDL CHOL ATP-III CLA SSIFICATION Cardiovascular RiskHDL > or equal to 60 mg/dL LOWHDL < 40 mg/dL HIGH Serum or plasma thyroperoxid ase antibody assay (units/volume)Ordered By: Nataly Toure on 05-28-2022 TPO Ab Qn [IU]/mL 0-34 [facility] Comment on above: Performed at: [address] [id number] Director: Sam Lopez PhD, Phone: [phone] Serum or plasma total choles terol/high density lipoprotein (HDL) cholesterol mass ratOrdered By: Nataly Toure on 05-28-2022 Cholesterol.total/Chol esterol in HDL [Mass ratio] 6.4 {ratio} <5.0 [facility] Sodium [Moles/volume] in Ser um or PlasmaOrdered By: Nataly Toure on 05-28-2022 Sodium [Moles/Vol] 138 mmol/L 136-145 [facility] TSH DL <= 0.005 mIU/L QnOrde red By: Nataly Toure on 05-28-2022 TSH Qn 2.330 m[IU]/L 0.450-4.50 0 [facility] Transferrin [Mass/volume] in Serum or PlasmaOrdered By: Nataly Toure on 05-28-2022 Transferrin [Mass/Vol] 321 mg/dL 203-362 [facility] Triglyceride [Mass/volume] i n Serum or PlasmaOrdered By: Nataly Toure on 05-28-2022 Triglyceride [Mass/Vol] 939 mg/dL 0-149 [facility] Comment on above: If the triglyceride result [...] on 05-28-2022 T3 [Mass/Vol] 186 ng/dL 71-180 [facility] Triiodothyronine (T3) resin uptake testOrdered By: Nataly Toure on 05-28-2022 T3RU 27 % 24-39 [facility] Urea nitrogen [Mass/volume] in Serum or PlasmaOrdered By: Nataly Toure on 05-28-2022 Urea nitrogen [Mass/Vol] 11 mg/dL 7-25 [facility] WBC Auto (Bld) [#/Vol]Ordere d By: Nataly Toure on 05-28-2022 WBC (Bld) [#/Vol] 7.3 10*3/uL 3.8-11.6 [facility] XR LSPINE 2_3 VIEWSon 2022 [...] PILI MIGUEL Date: 2022-03-15 22:49 Normal [facility] CBC AUTO DIFFon 03-15-2022 BASO # 0.0 103/ul Normal 0.0-0.1 [facility] Comment on above: Performed By: #### P REGU #### [facility] [address] [place] [address] Dr. Moris Winter Basophils/100 WBC (Bld) 0.1 % Critically low 0.2-2.0 [facility] Comment on above: Performed By: #### P REGU #### [facility] [address] [address] [address] Moris Winter EO # 0.1 103/ul Normal 0.0-0.7 [facility] Comment on above: Performed By: #### P REGU #### [facility] [address] [address] [address] Moris Winter Eosinophils/100 WBC (Bld) 0.8 % Critically low 0.9-7.0 [facility] Comment on above: Performed By: #### P REGU #### [facility] [address] [place] [address] Dr. Moris Winter Erythrocyte distribution width (RBC) [Ratio] 13.3 % Normal 11.0-15.0 [facility] Comment on above: Performed By: #### P REGU #### [facility] [address] [place] [address] Dr. Moris Winter Hematocrit (Bld) [Volume fraction] 37.4 % Normal 36.0-48.0 [facility] Comment on above: Performed By: #### P REGU #### [facility] [address] [place] [address] Dr. Moris Winter Hemoglobin (Bld) [Mass/Vol] 13.2 g/dL Normal 12.0-16.0 [facility] Comment on above: Performed By: #### P REGU #### [facility] [address] [place] [address] Dr. Moris Winter IG # 0.02 10e3/ul Normal 0.00-0.03 [facility] Comment on above: Performed By: #### P REGU #### [facility] [address] [place] [address] Dr. Moris Winter IG % 0.2 % Normal 0.0-0.5 [facility] Comment on above: Performed By: #### P REGU #### [facility] [address] [place] [address] Dr. Moris Winter LYMPH # 1.2 103/ul Normal 1.2-3.8 [facility] Comment on above: Performed By: #### P REGU #### [facility] [address] [place] [address] Dr. Moris Winter Lymphocytes/100 WBC (Bld) 14.6 % Critically low 20.5-60.0 [facility] Comment on above: Performed By: #### P REGU #### [facility] [address] [place] [address] Dr. Moris Winter MANUAL DIFF REQ NO Normal [facility] Comment on above: Performed By: #### P REGU #### [facility] [address] [place] [address] Dr. Moris Winter MCH (RBC) [Entitic mass] 27.3 pg Normal 26.7-34.0 [facility] Comment on above: Performed By: #### P REGU #### [facility] [address] [place] [address] Dr. Moris Winter MCHC (RBC) [Mass/Vol] 35.3 g/dL Critically high 29.9-35.2 [facility] Comment on above: Performed By: #### P REGU #### [facility] [address] [place] [address] Dr. Moris Winter MCV (RBC) [Entitic vol] 77.3 fL Critically low 81.0-99.0 [facility] Comment on above: Performed By: #### P REGU #### [facility] [address] [place] [address] Dr. Moris Winter MONO # 0.5 103/ul Normal 0.3-0.8 [facility] Comment on above: Performed By: #### P REGU #### [facility] [address] [place] [address] Dr. Moris Winter Monocytes/100 WBC (Bld) 5.4 % Normal 1.7-12.0 [facility] Comment on above: Performed By: #### P REGU #### [facility] [address] [place] [address] Dr. Moris Winter NEUT # 6.5 103/ul Normal 1.4-6.5 [facility] Comment on above: Performed By: #### P REGU #### [facility] [address] [place] [address] Dr. Moris Winter Neutrophils/100 WBC (Bld) 78.9 % Critically high 43.0-75.0 [facility] Comment on above: Performed By: #### P REGU #### [facility] [address] [place] [address] Dr. Moris Winter Platelet mean volume (Bld) [Entitic vol] 10.1 fL Normal 9.5-13.5 [facility] Comment on above: Performed By: #### P REGU #### [facility] [address] [place] [address] Dr. Moris Winter PLT 256 103/ul Normal 150-450 [facility] Comment on above: Performed By: #### P REGU #### [facility] [address] [place] [address] Dr. Moris Winter RBC 4.84 106/ul Normal 4.20-5.40 [facility] Comment on above: Performed By: #### P REGU #### [facility] [address] [place] [address] Dr. Moris Winter WBC 8.3 103/ul Normal 4.0-11.0 [facility] Comment on above: Performed By: #### P REGU #### [facility] [address] [place] [address] Dr. Moris Winter CRPon 03-15-2022 CRP 3.3 mg/dL Critically high <=1.0 [facility] Comment on above: Performed By: #### B MP, CRP #### [facility] [address] [place] [address] Dr. Moris Winter URon 03-15-2022 , QUAL Negative Normal NEGATIVE [facility] Comment on above: Performed By: #### P REGU #### [facility] [address] [place] [address] Dr. Moris Winter PROF CHEM 8 (BAS METB)on Anion gap [Moles/Vol] 15.8 mmol/L Normal [facility] Comment on above: Performed By: #### B MP, CRP #### [facility] [address] [place] [address] Dr. Moris Winter Calcium [Mass/Vol] 8.6 mg/dL Normal 8.5-10.1 [facility] Comment on above: Performed By: #### B MP, CRP #### [facility] [address] [place] [address] Dr. Moris Winter Chloride [Moles/Vol] 98 mmol/L Normal 98-107 [facility] Comment on above: Performed By: #### B MP, CRP #### [facility] [address] [place] [address] Dr. Moris Winter CO2 [Moles/Vol] 26.7 mmol/L Normal 21.0-32.0 [facility] Comment on above: Performed By: #### B MP, CRP #### [facility] [address] [place] [address] Dr. Moris Winter Creatinine [Mass/Vol] 0.80 mg/dL Normal 0.55-1.02 [facility] Comment on above: Performed By: #### B MP, CRP #### [facility] [address] [place] [address] Dr. Moris Winter EGFR-AF NIGERIAN >60 Normal >=60 [facility] Comment on above: Performed By: #### B MP, CRP #### [facility] [address] [place] [address] Dr. Moris Winter EGFR-NON AF NIGERIAN >60 Normal >=60 [facility] Comment on above: Performed By: #### B MP, CRP #### [facility] [address] [place] [address] Dr. Moris Winter Glucose [Mass/Vol] 103 mg/dL Normal 74-106 [facility] Comment on above: Performed By: #### B MP, CRP #### [facility] [address] [place] [address] Dr. Moris Winter Potassium [Moles/Vol] 3.5 mmol/L Normal 3.5-5.1 [facility] Comment on above: Performed By: #### B MP, CRP #### [facility] [address] [place] [address] Dr. Moris Winter Sodium [Moles/Vol] 137 mmol/L Normal 136-145 [facility] Comment on above: Performed By: #### B MP, CRP #### [facility] [address] [place] [address] Dr. Moris Winter Urea nitrogen [Mass/Vol] 15.0 mg/dL Normal 7.0-18.0 [facility] Comment on above: Performed By: #### B MP, CRP #### [facility] [address] [address] [address] Moris Winter Urea nitrogen/Creatinine [Mass ratio] 18.8 mg/mg Normal [facility] Comment on above: Performed By: #### B MP, CRP #### [facility] [address] [address] [address] Moris Winter SED [facility] 2022 SED RATE 51 mm/hr Critically high <=20 [facility] Comment on above: Performed By: #### P REGU #### [facility] [address] [place] [address] Dr. Moris Winter Amphetamine Screen Ql (U)Ord ered By: TELMA Smith on 10-18-2021 Amphetamines Ql (U) Negative Negative [facility] Automated erythrocytes count in urine sediment (number/area)Ordered By: TELMA Smith on 10-18-2021 RBC Auto (Urine sed) [#/Area] 1-2 [HPF] 0-4 [facility] Automated leukocytes count i n urine sediment (number/area)Ordered By: TELMA Smith on 10-18-2021 WBC Auto (Urine sed) [#/Area] 20-49 [HPF] 0-4 [facility] Barbiturates [Presence] in U rineOrdered By: TELMA Smith on 10-18-2021 Barbiturates Ql (U) Negative Negative [facility] Basophils Auto (Bld) [#/Vol] Ordered By: TELMA Smith on 10-18-2021 Basophils (Bld) [#/Vol] 0.0 10*3/uL 0.0-0.2 [facility] Basophils/100 WBC Auto (Bld) Ordered By: TELMA Smith on 10-18-2021 Basophils/100 WBC (Bld) 0.3 % . [facility] Benzodiazepines [Presence] i n UrineOrdered By: TELMA Smith on 10-18-2021 Benzodiazepines Ql (U) Negative Negative [facility] Bilirubin Test strip Ql (U)O rdered By: TELMA Smith on 10-18-2021 Bilirubin Ql (U) Negative Negative [facility] Blood hemoglobin measurement (mass/volume)Ordered By: TELMA Smith on 10-18-2021 Hemoglobin (Bld) [Mass/Vol] 11.3 g/dL 11.8-15.4 [facility] Blood leukocytes automated c ount (number/volume)Ordered By: TELMA Smith on 10-18-2021 WBC (Bld) [#/Vol] 10.1 10*3/uL 4.5-11.0 [facility] COVID-19 SOFIAOrdered By: MD DESEAN Smith on 10-18-2021 SARS-CoV+SARS-CoV-2 (COVID-19) Ag IA.rapid Ql (Resp) Negative Negative [facility] Comment on above: This is a duplicate [place] SARS Antigen (AUTUMN) result to be used for statistical tracking purpose only. Color Auto (U)Ordered By: MD DESEAN Smith on 10-18-2021 Color (U) Yellow Yellow [facility] Eosinophils Auto (Bld) [#/Vo l]Ordered By: TELMA Smith on 10-18-2021 Eosinophils (Bld) [#/Vol] 0.1 10*3/uL 0.0-0.45 [facility] Eosinophils/100 WBC Auto (Bl d)Ordered By: TELMA Smith on 10-18-2021 Eosinophils/100 WBC (Bld) 1.3 % . [facility] Erythrocyte distribution wid th Auto (RBC) [Ratio]Ordered By: TELMA Smith on 10-18-2021 Erythrocyte distribution width (RBC) [Ratio] 15.6 % 11.9-15.3 [facility] Hematocrit Auto (Bld) [Volum e fraction]Ordered By: TELMA Smith on 10-18-2021 Hematocrit (Bld) [Volume fraction] 34.9 % 34.0-46.4 [facility] Ketones Auto test strip (U) [Mass/Vol]Ordered By: TELMA Smith on 10-18-2021 Ketones (U) [Mass/Vol] Trace Negative [facility] - Drug toxicology Ordered By: TELMA Smith on 10-18-2021 Opiates Ql (U) Negative Negative [facility] Laboratory - Hematology and Cell countsOrdered By: TELMA Smith on 10-18-2021 Nucleated RBC/100 WBC (Bld) [Ratio] 0.1 % 0-0.5 [facility] Laboratory - UrinalysisOrder ed By: TELMA Smith on 10-18-2021 Hyaline casts LM Ql (Urine sed) 9-19 [LPF] 0-8 [facility] Lymphocytes Auto (Bld) [#/Vo l]Ordered By: TELMA Smith on 10-18-2021 Lymphocytes (Bld) [#/Vol] 1.7 10*3/uL 1.00-4.8 [facility] Lymphocytes/100 WBC Auto (Bl d)Ordered By: TELMA Smith on 10-18-2021 Lymphocytes/100 WBC (Bld) 17.0 % . [facility] MCH Auto (RBC) [Entitic mass ]Ordered By: TELMA Smith on 10-18-2021 MCH (RBC) [Entitic mass] 25.9 pg 24.7-34.3 [facility] MCHC Auto (RBC) [Mass/Vol]Or dered By: TELMA Smith on 10-18-2021 MCHC (RBC) [Mass/Vol] 32.5 g/dL 32.0-35.0 [facility] MCV Auto (RBC) [Entitic vol] Ordered By: TELMA Smith on 10-18-2021 MCV (RBC) [Entitic vol] 79.6 fL 80-100 [facility] Monocytes Auto (Bld) [#/Vol] Ordered By: TELMA Smith on 10-18-2021 Monocytes (Bld) [#/Vol] 0.8 10*3/uL 0.0-0.8 [facility] Monocytes/100 WBC Auto (Bld) Ordered By: TELMA Smith on 10-18-2021 Monocytes/100 WBC (Bld) 8.1 % . [facility] Neutrophils Auto (Bld) [#/Vo l]Ordered By: TELMA Smith on 10-18-2021 Neutrophils (Bld) [#/Vol] 7.4 10*3/uL 1.8-7.7 [facility] Neutrophils/100 WBC Auto (Bl d)Ordered By: TELMA Smtih on 10-18-2021 Neutrophils/100 WBC (Bld) 73.3 % . [facility] Nitrite Test strip Ql (U)Ord ered By: TELMA Smith on 10-18-2021 Nitrite Ql (U) Negative Negative [facility] No Panel InformationOrdered By: TELMA Smith on 10-18-2021 SARS Antigen (LFIA) [facility] Phencyclidine Screen Ql (U)O rdered By: TELMA Smith on 10-18-2021 Phencyclidine Ql (U) Negative Negative [facility] Comment on above: These are unconfirme d results and should not be used for legal purposes. Drug Cut-Off Concentration: AMPH 1000 ng/mL FAVIOLA 200 ng/mL THA 200 ng/mL COCM 300 ng/mL OP 300 ng/mL PCP 25 ng/mL Platelet mean volume Auto (B ld) [Entitic vol]Ordered By: TELMA Smith on 10-18-2021 Platelet mean volume (Bld) [Entitic vol] 9.7 fL 6.3-10.7 [facility] Platelets Auto (Bld) [#/Vol] Ordered By: TELMA Smith on 10-18-2021 Platelets (Bld) [#/Vol] 190 10*3/uL 150-450 [facility] Protein Auto test strip (U) [Mass/Vol]Ordered By: TELMA Smith on 10-18-2021 Protein (U) [Mass/Vol] Trace mg/dL Negative F [facility] RBC Auto (Bld) [#/Vol]Ordere d By: TELMA Smith on 10-18-2021 RBC (Bld) [#/Vol] 4.38 10*6/uL 3.60-5.00 [facility] S. agalactiae Org specific c x Ql (Unsp spec)Ordered By: Radha Molina on 10-18-2021 Group B Streptococcus Culture Strep. agalactiae Grp B [facility] Specific gravity Auto test s trip (U) [Rel density]Ordered By: TELMA Smith on 10-18-2021 Specific gravity (U) [Rel density] 1.020 1.001-1.03 0 [facility] Squamous epithelial cells de tection in urine sediment by light microscopyOrdered By: TELMA Smith on 10-18-2021 Epithelial cells.squamous LM Ql (Urine sed) 5-9 [HPF] 0-2 [facility] Urine bacteria detection by automated methodOrdered By: TELMA Smith on 10-18-2021 Bacteria Auto Ql (U) 1+ None Seen [facility] Urine clarity by refractomet ry automatedOrdered By: TELMA Smith on 10-18-2021 Clarity Refractometry automated (U) Cloudy Clear [facility] Urine cocaine detectionOrder ed By: TELMA Smith on 10-18-2021 Cocaine Ql (U) Negative Negative [facility] Urine glucose measurement by automated test strip (mass/volume)Ordered By: SHELLIE Smith on 10-18-2021 Glucose Auto test strip (U) [Mass/Vol] Normal mg/dL Normal [facility] Urine hemoglobin detection b y automated test stripOrdered By: TELMA Smith on 10-18-2021 Hemoglobin Auto test strip Ql (U) Negative Negative [facility] Urine leukocyte esterase det ection by automated test stripOrdered By: TELMA Smith on 10-18-2021 Leukocyte esterase Auto test strip Ql (U) 3+ Negative [facility] Urobilinogen Auto test strip (U) [Mass/Vol]Ordered By: TELMA Smith on 10-18-2021 Urobilinogen (U) [Mass/Vol] Normal mg/dL Normal [facility] pH Auto test strip (U)Ordere d By: TELMA Smith on 10-18-2021 pH (U) 6.5 [pH] 5.0-9.0 [facility] UA (CLEAN/CATCH) VARNISHER PLASTICOATER/MICRO I F IND.on 08-31-2021 Bilirubin Ql (U) Negative Normal NEGATIVE [facility] Comment on above: Performed By: #### U ACSIND, UMICRO #### [facility] [address] [address] [address] Moris Winter Clarity (U) SL CLOUDY Abnormal CLEAR [facility] Comment on above: Performed By: #### U ACSIND, UMICRO #### [facility] [address] [address] [address] Moris Winter Color (U) LT. YELLOW Normal YELLOW [facility] Comment on above: Performed By: #### U ACSIND, UMICRO #### [facility] [address] [place] [address] Dr. Moris Winter Glucose Ql (U) Negative Normal NEGATIVE [facility] Comment on above: Performed By: #### U ACSIND, UMICRO #### [facility] [address] [address] [address] Moris Winter Hemoglobin Ql (U) TRACE-INTACT Abnormal NEGATIVE [facility] Comment on above: Performed By: #### U ACSIND, UMICRO #### [facility] [address] [place] [address] Dr. Moris Winter Ketones Ql (U) Negative Normal NEGATIVE [facility] Comment on above: Performed By: #### U ACSIND, UMICRO #### [facility] [address] [address] [address] Moris Winter LEUKOCYTES TRACE Abnormal NEGATIVE [facility] Comment on above: Performed By: #### U ACSIND, UMICRO #### [facility] [address] [place] [address] Dr. Moris Winter Nitrite Ql (U) Negative Normal NEGATIVE [facility] Comment on above: Performed By: #### U ACSIND, UMICRO #### [facility] [address] [place] [address] Dr. Moris Winter pH (U) 7.0 [pH] Normal 5-9 [facility] Comment on above: Performed By: #### U ACSNARENDRA UMICRO #### [facility] [address] [place] [address] Dr. Moris Winter SPEC GRAVITY 1.010 Normal 1.005-<=1. 025 [facility] Comment on above: Performed By: #### U ACSNARENDRA UMICRO #### [facility] [address] [place] [address] Dr. Moris Winter UA PROTEIN Negative Normal NEGATIVE/ TRACE [facility] Comment on above: Performed By: #### U ACSNARENDRA UMICRO #### [facility] [address] [place] [address] Dr. Moris Winter UR MICRO IND INDICATED Normal [facility] Comment on above: Performed By: #### U ACSNARENDRA UMICRO #### [facility] [address] [place] [address] Dr. Moris Winter Urobilinogen Qn (U) 0.2 {Marcin'U}/dL Normal 0.2 - 1. 0 [facility] Comment on above: Performed By: #### U ACSNARENDRA UMICRO #### [facility] [address] [place] [address] Dr. Moris Winter URINE MICROSCOPIC ONLYon BACTERIA NONE SEEN Normal NONE SEEN [facility] Comment on above: Performed By: #### U ACSNARENDRA UMICRO #### [facility] [address] [place] [address] Dr. Moris Winter Bacteria identified Cx Nom (U) NOT INDICATED Normal [facility] Comment on above: Performed By: #### U ACSNARENDRA UMICRO #### [facility] [address] [place] [address] Dr. Moris Winter CAST NONE SEEN Normal NONE SEEN [facility] Comment on above: Performed By: #### U ACSNARENDRA UMICRO #### [facility] [address] [place] [address] Dr. Moris Winter Crystals LM Nom (Urine sed) NONE SEEN Normal NONE SEEN [facility] Comment on above: Performed By: #### U ACSIND, UMICRO #### [facility] [address] [address] [address] Moris Winter Epithelial cells LM Ql (Urine sed) MODERATE Abnormal NONE SEEN /RARE [facility] Comment on above: Performed By: #### U ACSIND, UMICRO #### [facility] [address] [address] [address] Moris Winter MUCOUS NONE SEEN Normal NONE SEEN [facility] Comment on above: Performed By: #### U ACSIND, UMICRO #### [facility] [address] [address] [address] Moris Winter RBC 0-2 Normal 0-2 [facility] Comment on above: Performed By: #### U ACSIND, UMICRO #### [facility] [address] [address] [address] Moris Winter WBC 0-2 Abnormal NONE SEEN [facility] Comment on above: Performed By: #### U ACSIND, UMICRO #### [facility] [address] [address] [address] Moris Winter Covid-19 PCR ([facility])on 07-17 SARS-CoV-2 (COVID-19) RNA SVETLANA+probe Ql (Unsp spec) Detected Critically abnormal NOT DETECTED [facility] Comment on above: Result Comment: This test is not yet approved or cleared by the [place] FDA. When there are no FDA-approved or cleared tests available, and other criteria are met, FDA can make tests available under an emergency access mechanism called an Emergency Use Authorization (EUA). The EUA for this test is supported by the [place] of Health and Human Service's declaration that [...] used). Performed By: #### P REGU #### [facility] [address] [place] [address] Dr. Moris Winter INFLUENZA A AND B AGon 08[facility]08 [facility] SEE BELOW Normal [facility] Comment on above: Result Comment: Nega tive for Flu A protein angiten. Infection due to Flu A cannot be ruled out. Flu A angiten in the sample may be below the detection limit of the test. Performed By: #### P REGU #### [facility] [address] [place] [address] Dr. Moris Winter [facility] Normal [facility] Comment on above: Result Comment: Nega tive for Flu B protein antigen. Infection due to Flu B cannot be ruled out. Flu B antigen in the sample may be below the detection limit of the test. Performed By: #### P REGU #### [facility] [address] [place] [address] Dr. Moris Winter INFLUENZA A AG Negative Normal NEGATIVE SEE COMMENT [facility] Comment on above: Performed By: #### P REGU #### [facility] [address] [place] [address] Dr. Moris Winter INFLUENZA B AG Negative Normal NEGATIVE SEE COMMENT [facility] Comment on above: Performed By: #### P REGU #### [facility] [address] [place] [address] Dr. Moris Winter INTERNAL CONTROLS Within Normal Limits Normal Wi thin Normal Limits [facility] Comment on above: Performed By: #### P REGU #### [facility] [address] [place] [address] Dr. Moris Winter Serum or plasma beta choriog onadotropin measurement (units/volume)Ordered By: Radha Molina on 07-21-2021 [place] [address].00 m[IU]/mL [facility] Comment on above: Approximate Approxim ate hCG Gestational Age Range (mIU/ml) (weeks) 0.2-1 5-50 1-2 50-500 2-3 100-5,000 3-4 500-10,000 4-5 1,000-50,000 5-6 10,000-100,000 6-8 15,000-200,000 8-12 10,000-100,000 Operative Reporton 9 Operative Report MR#: [id number] [facility] Pt. Name: Rosette Alba Room #: OR [...] placed Adaptic under the skin using a [employer] and tied this down with a 5-0 [...] Carballo MD Date Trans: 08/03/2018 08:27 P/antony [id number] cc: Soraya Romo [address] [place] [id number] Normal [facility] POC GLUCOSE LABon 08-03-2018 Glucose [Mass/Vol] 105 mg/dL High 70-100 [facility] Comment on above: Performed By: #### [id number] #### [facility] [address] [place] [address], [facility] POC URINE PREGNANCYon 2018 Beta HCG ( test) Ql (U) Negative Normal NEGATIVE [facility] Comment on above: Result Comment: Perf ormed in PACU Performed By: #### [id number] #### [facility] Renan [address] Vital Signs Date Time Vital Sign Value Performing Clinician Facility 04-13-2024 11:56-0500 Body height 160 cm Ni Carroll MD Work Phone: [facility] 04-13-2024 11:56-0500 Body mass index (BMI) [Ratio] 40.19 kg/m2 Ni Carroll MD Work Phone: [facility] 04-13-2024 11:56-0500 Body weight 102.88 kg Ni Carroll MD Work Phone: [facility] 04-13-2024 11:56-0500 Diastolic blood pressure 64 mm[Hg] Ni Carroll MD Work Phone: [facility] 04-13-2024 11:56-0500 Heart rate 98 /min Ni Carroll MD Work Phone: [facility] 04-13-2024 11:56-0500 Systolic blood pressure 116 mm[Hg] Ni Carroll MD Work Phone: [facility] 04-06-2024 11:45-0500 Body mass index (BMI) [...] Center 10-20-2023 08:28-0400 Body height 160.02 cm ASSOCIATE DIRECTOR [employer]ATORY AFFAIRS-[employer] Nataly Spasic Work Phone: [facility] 10-20-2023 08:28-0400 Body mass index (BMI) [Ratio] 38 kg/m2 ASSOCIATE DIRECT[employer] Nataly Spasic Work Phone: [facility] 10-20-2023 08:28-0400 Body temperature 97.7 [degF] ASSOCIATE DIRECTOR [employer]AT[employer] Nataly Spasic Work Phone: [facility] 10-20-2023 08:28-0400 Body weight 97.52 kg ASSOCIATE DIRECTOR [employer]AT[employer] Nataly Spasic Work Phone: [facility] 10-20-2023 08:28-0400 Diastolic blood pressure 74 mm[Hg] ASSOCIATE DIRECTOR [employer]AT[employer] Nataly Spasic Work Phone: [facility] 10-20-2023 08:28-0400 Heart rate 75 /min ASSOCIATE DIRECTOR [employer] Nataly Spasic Work Phone: [facility] 10-20-2023 08:28-0400 Respiratory rate 18 /min ASSOCIATE DIRECT[employer] Nataly Spasic Work Phone: [facility] 10-20-2023 08:28-0400 SaO2% (BldA) [Mass fraction] 99 % ASSOCIATE DIRECT[employer] Nataly Spasic Work Phone: [facility] 10-20-2023 08:28-0400 Systolic blood pressure 107 mm[Hg] ASSOCIATE DIRECT[employer] [facility] Nataly Spasic Work Phone: [facility] 10-04-2023 22:40-0400 Body height 160.02 cm ASSOCIATE DIRECT[employer] [facility] Nataly Spasic Work Phone: [facility] 10-04-2023 22:40-0400 Body temperature 97.7 [degF] ASSOCIATE DIRECT[employer] [facility] Nataly Spasic Work Phone: [facility] 10-04-2023 22:40-0400 Body weight 95.5 kg ASSOCIATE DIRECT[employer] Nataly Spasic Work Phone: [facility] 10-04-2023 22:40-0400 Diastolic blood pressure 75 mm[Hg] ASSOCIATE DIRECTOR REGULATORY AFFAIRS-C Nataly Spasic Work Phone: [facility] 10-04-2023 22:40-0400 Heart rate 95 /min ASSOCIATE DIRECTOR REGULATORY AFFAIRS-C Nataly Spasic Work Phone: [facility] 10-04-2023 22:40-0400 Respiratory rate 16 /min ASSOCIATE DIRECTOR REGULATORY AFFAIRS-C Nataly Spasic Work Phone: [facility] 10-04-2023 22:40-0400 SaO2% (BldA) [Mass fraction] 98 % ASSOCIATE DIRECTOR REGULATORY AFFAIRS-C Nataly Spasic Work Phone: [facility] 10-04-2023 22:40-0400 Systolic blood pressure 132 mm[Hg] ASSOCIATE DIRECTOR REGULATORY AFFAIRS-C Nataly Spasic Work Phone: [facility] 09-26-2023 21:36-0400 Body temperature 98.1 [degF] ASSOCIATE DIRECTOR REGULATORY AFFAIRS-C Nataly Spasic Work Phone: [facility] 09-26-2023 21:36-0400 Diastolic blood pressure 74 mm[Hg] ASSOCIATE DIRECTOR REGULATORY AFFAIRS-C Nataly Spasic Work Phone: [facility] 09-26-2023 21:36-0400 Heart rate 90 /min ASSOCIATE DIRECTOR REGULATORY AFFAIRS-C Nataly Spasic Work Phone: [facility] 09-26-2023 21:36-0400 Respiratory rate 16 /min ASSOCIATE DIRECTOR REGULATORY AFFAIRS-C Nataly Spasic Work Phone: [facility] 09-26-2023 21:36-0400 SaO2% (BldA) [Mass fraction] 99 % ASSOCIATE DIRECTOR REGULATORY AFFAIRS-C Nataly Spasic Work Phone: [facility] 09-26-2023 21:36-0400 Systolic blood pressure 145 mm[Hg] ASSOCIATE DIRECTOR REGULATORY AFFAIRS-C Nataly Spasic Work Phone: [facility] 09-26-2023 21:35-0400 Body height 160.02 cm ASSOCIATE DIRECTOR REGULATORY AFFAIRS-C Nataly Spasic Work Phone: [facility] 09-26-2023 21:35-0400 Body weight 96.7 kg ASSOCIATE DIRECTOR REGULATORY AFFAIRS-C Nataly Spasic Work Phone: [facility] 08-20-2023 23:05-0400 Body height 160.02 cm ASSOCIATE DIRECTOR REGULATORY AFFAIRS-C Nataly Spasic Work Phone: [facility] 08-20-2023 23:05-0400 Body temperature 98.3 [degF] ASSOCIATE DIRECTOR REGULATORY AFFAIRS-C Nataly Spasic Work Phone: [facility] 08-20-2023 23:05-0400 Body weight 97.5 kg ASSOCIATE DIRECTOR REGULATORY AFFAIRS-C Nataly Spasic Work Phone: [facility] 08-20-2023 23:05-0400 Diastolic blood pressure 66 mm[Hg] ASSOCIATE DIRECTOR REGULATORY AFFAIRS-C Nataly Spasic Work Phone: [facility] 08-20-2023 23:05-0400 Heart rate 90 /min ASSOCIATE DIRECTOR REGULATORY AFFAIRS-C Nataly Spasic Work Phone: [facility] 08-20-2023 23:05-0400 Respiratory rate 20 /min ASSOCIATE DIRECTOR REGULATORY AFFAIRS-C Nataly Spasic Work Phone: [facility] 08-20-2023 23:05-0400 SaO2% (BldA) [Mass fraction] 99 % ASSOCIATE DIRECTOR REGULATORY AFFAIRS-C Nataly Spasic Work Phone: [facility] 08-20-2023 23:05-0400 Systolic blood pressure 136 mm[Hg] ASSOCIATE DIRECTOR REGULATORY AFFAIRS-C Nataly Spasic Work Phone: [facility] 02-13-2023 21:40-0500 Body temperature 97.7 [degF] ASSOCIATE DIRECTOR REGULATORY AFFAIRS-C Nataly Spasic Work Phone: [facility] 02-13-2023 21:40-0500 Diastolic blood pressure 87 mm[Hg] ASSOCIATE DIRECTOR REGULATORY AFFAIRS-C Nataly Spasic Work Phone: [facility] 02-13-2023 21:40-0500 Heart rate 100 /min ASSOCIATE DIRECTOR REGULATORY AFFAIRS-C Nataly Spasic Work Phone: [facility] 02-13-2023 21:40-0500 Respiratory rate 18 /min ASSOCIATE DIRECTOR REGULATORY AFFAIRS-C Nataly Spasic Work Phone: [facility] 02-13-2023 21:40-0500 SaO2% (BldA) [Mass fraction] 96 % ASSOCIATE DIRECTOR REGULATORY AFFAIRS-C Nataly Spasic Work Phone: [facility] 02-13-2023 21:40-0500 Systolic blood pressure 140 mm[Hg] ASSOCIATE DIRECTOR REGULATORY AFFAIRS-C Nataly Spasic Work Phone: [facility] 02-13-2023 11:10-0500 Body height 160.02 cm ASSOCIATE DIRECTOR REGULATORY AFFAIRS-C Nataly Spasic Work Phone: [facility] 02-13-2023 11:10-0500 Body weight 99.79 kg ASSOCIATE DIRECTOR REGULATORY AFFAIRS-C Nataly Spasic Work Phone: [facility] 02-01-2023 19:30-0500 Body temperature 97.3 [degF] ASSOCIATE DIRECTOR REGULATORY AFFAIRS-C Nataly Spasic Work Phone: [facility] 02-01-2023 19:30-0500 Diastolic blood pressure 75 mm[Hg] ASSOCIATE DIRECTOR REGULATORY AFFAIRS-C Nataly Spasic Work Phone: [facility] 02-01-2023 19:30-0500 Heart rate 94 /min ASSOCIATE DIRECTOR REGULATORY AFFAIRS-C Nataly Spasic Work Phone: [facility] 02-01-2023 19:30-0500 Respiratory rate 14 /min ASSOCIATE DIRECTOR REGULATORY AFFAIRS-C Nataly Spasic Work Phone: [facility] 02-01-2023 19:30-0500 SaO2% (BldA) [Mass fraction] 98 % ASSOCIATE DIRECTOR REGULATORY AFFAIRS-C Nataly Spasic Work Phone: [facility] 02-01-2023 19:30-0500 Systolic blood pressure 123 mm[Hg] ASSOCIATE DIRECTOR REGULATORY AFFAIRS-C Nataly Spasic Work Phone: [facility] 01-31-2023 09:00-0500 Body temperature 98 [degF] ASSOCIATE DIRECTOR REGULATORY AFFAIRS-C Nataly Spasic Work Phone: [facility] 01-31-2023 09:00-0500 Respiratory rate 16 /min ASSOCIATE DIRECTOR REGULATORY AFFAIRS-C Nataly Spasic Work Phone: [facility] 01-31-2023 08:46-0500 Diastolic blood pressure 57 mm[Hg] ASSOCIATE DIRECTOR REGULATORY AFFAIRS-C Nataly Spasic Work Phone: [facility] 01-31-2023 08:46-0500 Heart rate 112 /min ASSOCIATE DIRECTOR REGULATORY AFFAIRS-C Nataly Spasic Work Phone: [facility] 01-31-2023 08:46-0500 Systolic blood pressure 112 mm[Hg] ASSOCIATE DIRECTOR REGULATORY AFFAIRS-C Nataly Spasic Work Phone: [facility] 01-31-2023 06:31-0500 SaO2% (BldA) [Mass fraction] 96 % ASSOCIATE DIRECTOR REGULATORY AFFAIRS-C Nataly Spasic Work Phone: [facility] 01-31-2023 00:08-0500 Body height 160.02 cm ASSOCIATE DIRECTOR REGULATORY AFFAIRS-C Nataly Spasic Work Phone: [facility] 01-31-2023 00:08-0500 Body weight 97.52 kg ASSOCIATE DIRECTOR REGULATORY AFFAIRS-C Nataly Spasic Work Phone: [facility] 01-21-2023 09:56-0500 Body height 157.48 cm ASSOCIATE DIRECTOR REGULATORY AFFAIRS-C Nataly Spasic Work Phone: [facility] 01-21-2023 09:56-0500 Body weight 81.64 kg ASSOCIATE DIRECTOR REGULATORY AFFAIRS-C Nataly Spasic Work Phone: [facility] 12-01-2022 18:06-0400 Diastolic blood pressure 75 mm[Hg] ASSOCIATE DIRECTOR REGULATORY AFFAIRS-C Nataly Spasic Work Phone: [facility] 12-01-2022 18:06-0400 Heart rate 109 /min ASSOCIATE DIRECTOR REGULATORY AFFAIRS-C Nataly Spasic Work Phone: [facility] 12-01-2022 18:06-0400 Respiratory rate 17 /min ASSOCIATE DIRECTOR REGULATORY AFFAIRS-C Nataly Spasic Work Phone: [facility] 12-01-2022 18:06-0400 SaO2% (BldA) [Mass fraction] 99 % ASSOCIATE DIRECTOR REGULATORY AFFAIRS-C Nataly Spasic Work Phone: [facility] 12-01-2022 18:06-0400 Systolic blood pressure 123 mm[Hg] ASSOCIATE DIRECTOR REGULATORY AFFAIRS-C Nataly Spasic Work Phone: [facility] 12-01-2022 14:32-0400 Body height 160.02 cm ASSOCIATE DIRECTOR REGULATORY AFFAIRS-C Nataly Spasic Work Phone: [facility] 12-01-2022 14:32-0400 Body temperature 97.6 [degF] ASSOCIATE DIRECTOR REGULATORY AFFAIRS-C Nataly Spasic Work Phone: [facility] 12-01-2022 14:32-0400 Body weight 101.2 kg ASSOCIATE DIRECTOR REGULATORY AFFAIRS-C Ntaaly Spasic Work Phone: [facility] 11-20-2022 19:00-0400 Respiratory rate 16 /min ASSOCIATE DIRECTOR REGULATORY AFFAIRS-C Nataly Spasic Work Phone: [facility] 11-20-2022 18:14-0400 Diastolic blood pressure 65 mm[Hg] ASSOCIATE DIRECTOR REGULATORY AFFAIRS-C Nataly Spasic Work Phone: [facility] 11-20-2022 18:14-0400 Heart rate 100 /min ASSOCIATE DIRECTOR REGULATORY AFFAIRS-C Nataly Spasic Work Phone: [facility] 11-20-2022 18:14-0400 Systolic blood pressure 131 mm[Hg] ASSOCIATE DIRECTOR REGULATORY AFFAIRS-C Nataly Spasic Work Phone: [facility] 11-20-2022 18:05-0400 SaO2% (BldA) [Mass fraction] 99 % ASSOCIATE DIRECTOR REGULATORY AFFAIRS-C Nataly Spasic Work Phone: [facility] 11-20-2022 17:21-0400 Body height 160.02 cm ASSOCIATE DIRECTOR REGULATORY AFFAIRS-C Nataly Spasic Work Phone: [facility] 11-20-2022 17:21-0400 Body weight 98.88 kg ASSOCIATE DIRECTOR REGULATORY AFFAIRS-C Nataly Spasic Work Phone: [facility] 11-19-2022 13:49-0400 Respiratory rate 16 /min ASSOCIATE DIRECTOR REGULATORY AFFAIRS-C Nataly Spasic Work Phone: [facility] 11-19-2022 13:30-0400 Body temperature 97.4 [degF] ASSOCIATE DIRECTOR REGULATORY AFFAIRS-C Nataly Spasic Work Phone: [facility] 11-19-2022 12:53-0400 Diastolic blood pressure 71 mm[Hg] ASSOCIATE DIRECTOR REGULATORY AFFAIRS-C Nataly Spasic Work Phone: [facility] 11-19-2022 12:53-0400 Heart rate 109 /min ASSOCIATE DIRECTOR REGULATORY AFFAIRS-C Nataly Spasic Work Phone: [facility] 11-19-2022 12:53-0400 Systolic blood pressure 125 mm[Hg] ASSOCIATE DIRECTOR REGULATORY AFFAIRS-C Nataly Spasic Work Phone: [facility] 11-19-2022 12:49-0400 SaO2% (BldA) [Mass fraction] 99 % ASSOCIATE DIRECTOR REGULATORY AFFAIRS-C Nataly Spasic Work Phone: [facility] 11-19-2022 12:23-0400 Body height 160.02 cm ASSOCIATE DIRECTOR REGULATORY AFFAIRS-C Nataly Toure Work Phone: [facility] 11-19-2022 12:23-0400 Body weight 98.88 kg ASSOCIATE DIRECTOR REGULATORY AFFAIRS-C Nataly Jerniganc Work Phone: [facility] 10-18-2021 05:08-0400 Diastolic blood pressure 58 mm[Hg] DO Obdulia Oneil Work Phone: [facility] 10-18-2021 05:08-0400 Heart rate 96 /min DO Obdulia Oneil Work Phone: [facility] 10-18-2021 05:08-0400 SaO2% (BldA) [Mass fraction] 98 % DO Obdulia Oneil Work Phone: [facility] 10-18-2021 05:08-0400 Systolic blood pressure 118 mm[Hg] DO Obdulia Oneil Work Phone: [facility] 10-18-2021 05:00-0400 Body temperature 98.3 [degF] DO Obdulia Oneil Work Phone: [facility] 10-18-2021 05:00-0400 Respiratory rate 16 /min DO Obdulia Oneil Work Phone: [facility] 10-18-2021 01:57-0400 Body weight 102.51 kg DO Obdulia Oneil Work Phone: [facility] 10-18-2021 01:31-0400 Body height 160.02 cm DO Obdulia Oneil Work Phone: [facility] Encounters Encounter Date Encounter Type Care Provider Facility Start: 04-14-2024 End: 04-14-2024 Clinisync Result Encounter Camacho Mary DO Work Phone: [facility] Unsolicited Start: 04-14-2024 End: 04-14-2024 Clinisync Result Encounter Camacho Mary DO Work Phone: [facility] External [facility] Unsolicited Start: 04-13-2024 End: 04-13-2024 Office consultation new/estab patient 60 min Ni Carroll MD Work Phone: [facility] Comment on above: delivery aft er section (Primary Dx) Start: 04-13-2024 End: 04-13-2024 Orders Only Berenice Vyas RN [facility] Comment on above: History of d [...] Carroll MD Work Phone: [facility] Start: 03-14-2024 End: 03-14-2024 Clinisync Result [...] [id number] Start: 11-03-2023 ambulatory Nataly Toure Facility :[facility] Start: 10-20-2023 Registered Recurring ASSOCIATE DIRECTOR REGULATORY AFFAIRS-C Andrez Toure Work Phone: [facility] Work Phone: Start: 10-20-2023 End: 10-20-2023 ambulatory ASSOCIATE DIRECTOR REGULATORY AFFAIRS-C Nataly E Spasic Work Phone: [facility] Work Phone: Start: 10-20-2023 End: 10-20-2023 Patient encounter procedure ASSOCIATE DIRECTOR REGULATORY AFFAIRS-C Nataly Spasic Work Phone: [facility] Work Phone: Start: 10-07-2023 End: 10-07-2023 Patient encounter procedure ASSOCIATE DIRECTOR REGULATORY AFFAIRS-C Nataly Spasic Work Phone: [facility] [place] Work Phone: Start: 10-07-2023 End: 10-07-2023 ambulatory ASSOCIATE DIRECTOR REGULATORY AFFAIRS-C Nataly E Spasic Work Phone: [facility] Work Phone: Start: 10-04-2023 End: 10-05-2023 Emergency department patient visit ASSOCIATE DIRECTOR REGULATORY AFFAIRS-C Nataly Spasic Work Phone: [facility] Work Phone: Start: 09-30-2023 End: 09-30-2023 ambulatory ASSOCIATE DIRECTOR REGULATORY AFFAIRS-C Nataly E Spasic Work Phone: [facility] Work Phone: Start: 09-30-2023 End: 09-30-2023 Departed Referred ASSOCIATE DIRECTOR REGULATORY AFFAIRS-C Nataly Spasic Work Phone: [facility] [place] Work Phone: Start: 09-26-2023 End: 09-27-2023 Emergency department patient visit ASSOCIATE DIRECTOR REGULATORY AFFAIRS-C Nataly Spasic Work Phone: [facility] Work Phone: Start: 08-20-2023 End: 08-21-2023 Emergency department patient visit ASSOCIATE DIRECTOR REGULATORY AFFAIRS-C Nataly Spasic Work Phone: [facility] Work Phone: Start: 08-03-2023 End: 08-03-2023 ambulatory Nataly E Spasic [facility] Work Phone: Start: 08-03-2023 End: 08-03-2023 Departed Referred ASSOCIATE DIRECTOR REGULATORY AFFAIRS-C Nataly Spasic Work Phone: [facility] Start: 05-27-2023 End: 05-27-2023 ambulatory RADHA E RINKES Not Available Start: 05-25-2023 End: 05-25-[address] Not Available Start: 05-05-2023 End: 05-05-2023 ambulatory RADHA E RINKES Not Available Start: 04-15-2023 End: 04-15-2023 ambulatory Nataly E Spasic Facility:[facility] Start: 03-17-2023 End: 03-17-2023 Patient encounter procedure PHYSICIAN NO [facility] [place] Work Phone: Start: 03-17-2023 End: 03-17-2023 ambulatory PHYSICIAN NO [facility] Work Phone: Start: 03-04-2023 End: 03-04-2023 ambulatory PHYSICIAN NO [facility] Work Phone: Start: 03-04-2023 End: 03-04-2023 Departed Referred PHYSICIAN NO [facility] Start: 02-13-2023 End: 02-13-2023 Evaluation and management of inpatient ASSOCIATE DIRECTOR REGULATORY AFFAIRS-C Nataly Spasic Work Phone: [facility] [place] Work Phone: Start: 02-01-2023 End: 02-01-2023 Patient encounter procedure ASSOCIATE DIRECTOR REGULATORY AFFAIRS-C Nataly Spasic Work Phone: [facility] - [facility] Start: 02-01-2023 End: 02-01-2023 ambulatory ASSOCIATE DIRECTOR REGULATORY AFFAIRS-C Nataly E Spasic Work Phone: [facility] Work Phone: Start: 01-30-2023 End: 01-31-2023 Patient encounter procedure ASSOCIATE DIRECTOR REGULATORY AFFAIRS-C Nataly Spasic Work Phone: [facility] - O/P Start: 01-30-2023 End: 01-31-2023 ambulatory ASSOCIATE DIRECTOR REGULATORY AFFAIRS-C Nataly E Spasic Work Phone: [facility] Work Phone: Start: 01-22-2023 End: 01-22-2023 Patient encounter procedure ASSOCIATE DIRECTOR REGULATORY AFFAIRS-C Nataly Spasic Work Phone: [facility] - O/P Start: 01-22-2023 End: 01-22-2023 ambulatory ASSOCIATE DIRECTOR REGULATORY AFFAIRS-C Nataly E Spasic Work Phone: [facility] Work Phone: Start: 01-21-2023 End: 01-21-2023 Patient encounter procedure ASSOCIATE DIRECTOR REGULATORY AFFAIRS-C Nataly Spasic Work Phone: [facility] - O/P Start: 01-21-2023 End: 01-21-2023 ambulatory ASSOCIATE DIRECTOR REGULATORY AFFAIRS-C Nataly E Spasic Work Phone: [facility] Work Phone: Start: 01-05-2023 End: 01-05-2023 ambulatory ASSOCIATE DIRECTOR REGULATORY AFFAIRS-C Nataly E Spasic Work Phone: [facility] Work Phone: Start: 01-05-2023 End: 01-05-2023 Departed Referred ASSOCIATE DIRECTOR REGULATORY AFFAIRS-C Nataly Spasic Work Phone: [facility] [place] Work Phone: Start: 12-22-2022 End: 12-22-2022 Patient encounter procedure ASSOCIATE DIRECTOR REGULATORY AFFAIRS-C Nataly Spasic Work Phone: [facility] [place] Work Phone: Start: 12-22-2022 End: 12-22-2022 ambulatory ASSOCIATE DIRECTOR REGULATORY AFFAIRS-C Nataly E Spasic Work Phone: [facility] Work Phone: Start: 12-08-2022 End: 12-08-2022 ambulatory ASSOCIATE DIRECTOR REGULATORY AFFAIRS-C Nataly E Spasic Work Phone: [facility] Work Phone: Start: 12-08-2022 End: 12-08-2022 Departed Referred ASSOCIATE DIRECTOR REGULATORY AFFAIRS-C Nataly Spasic Work Phone: [facility] [place] Work Phone: Start: 12-03-2022 End: 12-03-2022 ambulatory ASSOCIATE DIRECTOR REGULATORY AFFAIRS-C Nataly E Spasic Work Phone: [facility] Work Phone: Start: 12-03-2022 End: 12-03-2022 Departed Referred ASSOCIATE DIRECTOR REGULATORY AFFAIRS-C Nataly Spasic Work Phone: [facility] Start: 12-01-2022 End: 12-01-2022 Emergency department patient visit ASSOCIATE DIRECTOR REGULATORY AFFAIRS-C Nataly Spasic Work Phone: [facility] Work Phone: Start: 11-21-2022 End: 11-21-2022 ambulatory ASSOCIATE DIRECTOR REGULATORY AFFAIRS-C Nataly E Spasic Work Phone: [facility] Work Phone: Start: 11-21-2022 End: 11-21-2022 Patient encounter procedure ASSOCIATE DIRECTOR REGULATORY AFFAIRS-C Nataly Spasic Work Phone: [facility] - [facility] Start: 11-20-2022 End: 11-20-2022 ambulatory ASSOCIATE DIRECTOR REGULATORY AFFAIRS-C Nataly E Spasic Work Phone: [facility] Work Phone: Start: 11-20-2022 End: 11-20-2022 Patient encounter procedure ASSOCIATE DIRECTOR REGULATORY AFFAIRS-C Nataly Spasic Work Phone: [facility] - O/P Start: 11-19-2022 End: 11-19-2022 ambulatory ASSOCIATE DIRECTOR REGULATORY AFFAIRS-C Nataly E Spasic Work Phone: [facility] Work Phone: Start: 11-19-2022 End: 11-19-2022 Patient encounter procedure ASSOCIATE DIRECTOR REGULATORY AFFAIRS-C Nataly Spasic Work Phone: [facility] - O/P Start: 07-13-2022 End: 07-14-2022 ambulatory YNES HARDEN . Facility:[facility] Start: 06-23-2022 End: 06-23-2022 ambulatory ASSOCIATE DIRECTOR REGULATORY AFFAIRS-C Nataly E Spasic Work Phone: [facility] Work Phone: Start: 06-23-2022 End: 06-23-2022 Patient encounter procedure ASSOCIATE DIRECTOR REGULATORY AFFAIRS-C Nataly Spasic Work Phone: [facility] Work Phone: Start: 06-16-2022 End: 06-16-2022 Departed Referred ASSOCIATE DIRECTOR REGULATORY AFFAIRS-C Nataly Spasic Work Phone: [facility] Start: 06-04-2022 End: 06-04-2022 ambulatory ASSOCIATE DIRECTOR REGULATORY AFFAIRS-C Nataly E Spasic Work Phone: [facility] Work Phone: Start: 06-04-2022 End: 06-04-2022 Patient encounter procedure ASSOCIATE DIRECTOR REGULATORY AFFAIRS-C Nataly Spasic Work Phone: [facility] [place] Work Phone: Start: 06-03-2022 End: 06-03-[address] SHARMILA BAIG . Facility:[facility] Start: 05-28-2022 End: 05-28-2022 ambulatory ASSOCIATE DIRECTOR REGULATORY AFFAIRS-C Nataly Spasic Work Phone: [facility] Work Phone: Start: 05-28-2022 End: 05-28-2022 Departed Referred ASSOCIATE DIRECTOR REGULATORY AFFAIRS-C Nataly Toure Work Phone: [facility] Start: 03-15-2022 End: 03-16-2022 ambulatory CORRINA DHALIWAL Facility: Start: 10-18-2021 End: 10-18-2021 Evaluation and management of inpatient DO Obdulia Oneil Work Phone: [facility] Start: 10-16-2021 End: 10-16-2021 Departed Referred DO Obdulia Oneil Work Phone: [facility] [place] Start: 08-31-2021 End: 08-31-[address] CAMACHO HERNANDEZ . Facility: Start: 08-08-2021 End: 08-08-2021 ambulatory CORRINA DHALIWAL Facility: Start: 07-21-2021 End: 07-21-2021 Patient encounter procedure DO Obdulia Oneil Work Phone: [facility] [place] Start: 08-03-2018 End: 08-04-2018 Patient encounter procedure SHARLA HICKS Facility:[facility] Procedures Date Procedure Procedure Detail Performing Clinician Start: 04-14-2024 [facility] UA (CLEAN/CATCH) VARNISHER PLASTICOATER/MICRO IF IND. Camacho Hernandez DO Work Phone: [...] Start: 10-07-2023 Diagnostic radiograp hy of abdomen ASSOCIATE DIRECTOR REGULATORY AFFAIRS-C Nataly Spasic Work Phone: Start: 10-07-2023 Ultrasonography of liver ASSOCIATE DIRECTOR REGULATORY AFFAIRS-C Natlay Spasic Work Phone: Start: 10-07-2023 US scan of thyroid ASSOCIATE DIRECTOR REGULATORY AFFAIRS-C Nataly Spasic Work Phone: Start: 09-26-2023 CT of lumbar spine w ithout contrast ASSOCIATE DIRECTOR REGULATORY AFFAIRS-C Nataly Spasic Work Phone: Start: 09-26-2023 Urine culture ASSOCIATE DIRECTOR REGULATORY AFFAIRS-C Andrez a Spasic Work Phone: Start: 02-13-2023 Urine culture PHYSICIAN NO FAMILY Start: 02-01-2023 Urine culture ASSOCIATE DIRECTOR REGULATORY AFFAIRS-C Andrez a Spasic Work Phone: Start: 01-05-2023 Streptococcus agalac tiae culture ASSOCIATE DIRECTOR REGULATORY AFFAIRS-C Nataly Spasic Work Phone: Start: 12-01-2022 Plain chest X-ray ASSOCIATE DIRECTOR REGULATORY AFFAIRS-C Nataly Spasic Work Phone: Start: 12-01-2022 Respiratory Panel (PCR) ASSOCIATE DIRECTOR REGULATORY AFFAIRS-C Nataly Spasic Work Phone: Start: 11-20-2022 Ultrasound scan - obstetric ASSOCIATE DIRECTOR REGULATORY AFFAIRS-C Nataly Spasic Work Phone: Start: 06-04-2022 US scan of gallbladder ASSOCIATE DIRECTOR REGULATORY AFFAIRS-C Nataly Spasic Work Phone: Start: 08-03-2018 Anes integ extremiti es ant trunk & perineum nos AREN D PITT Start: 08-03-2018 Repair nail bed SHARLA Brian CLARK SARS Antigen (LFIA) DO Luis Enrique Oneil Work Phone: Streptococcus agalac tiae culture DO Obdulia Oneil Work Phone: Plan of Treatment Date Care Activity Detail Author Start: 04-13-2025 Adult BMI Screening Adult BMI Screen ing [facility] Start: 04-13-2025 Tobacco Screening Tobacco Screening [facility] Start: 04-13-2025 End: 04-13-2025 US MFM with or without consult US MFM with or without consult Imaging Routine History of delivery, currently Expected: 04/13/2025 (Approximate), Expires: 04/13/2025 [facility] Work Phone: Comment on above: Expected: 04/13/2025 (Approximate), Expires: 04/13/2025 Start: 05-09-2024 End: 05-09-2024 Patient encounter procedure 05/09/2024 11:15 AM EDT Appointment [facility] - Ultrasound [address] [place] [id number] [facility] - Ultrasound Start: 05-04-2024 End: 05-04-2024 Patient encounter procedure 05/04/2024 11:10 AM EDT Office Visit [facility] [address] [place] [id number] Camacho Hernandez, DO [address] [place] [address] [facility] Start: 05-02-2024 End: 05-02-2024 Patient encounter procedure 05/02/2024 9:15 AM EDT Appointment [facility] - Ultrasound [address] [place] [id number] [facility] - Ultrasound Start: 04-13-2024 End: 04-13-[address] [facility] - MFM US Imaging Start: 04-06-2024 End: 04-06-2025 US Pelvis transvaginal US OB transvaginal Imaging Routine History of delivery, currently Expected: 04/06/2024, Expires: 04/06/2025 [facility] Comment on above: Expected: 04/06/2024 , [...] gestational diabetes Expected: 03/09/2024 (Approximate), Expires: 03/09/2025 [facility] Comment on above: Expected: 03/09/2024 (Approximate), Expires: 03/09/2025 Start: 03-09-2024 End: 03-09-2025 US Pelvis transvaginal US OB transvaginal Imaging Routine History of delivery, currently Expected: 03/09/2024, Expires: 03/09/2025 [facility] Comment on above: Expected: 03/09/2024 , [...] gestational age Expected: 02/03/2024 (Approximate), Expires: 02/02/2025 [facility] Work Phone: Comment on above: Expected: [...] Start: 09-26-2023 CT Lumbar spine WO contrast [facility] Start: 09-26-2023 CT of lumbar spine w ithout contrast CT lumbar spine wo con [facility] Start: 09-26-2023 Bacteria identified in Urine by Culture [facility] Start: 08-20-2023 [facility] Start: 02-14-2023 [facility] Start: 02-13-2023 End: 02-13-2023 [facility] Start: 02-13-2023 Bacteria identified in Urine by Culture [facility] Start: 02-13-2023 Delivery of Products of Conception, External Approach Delivery of Products of Conception, External Approach [facility] Start: 02-13-2023 Drainage of Amniotic Fluid, Therapeutic from Products of Conception, Via Natural or Artificial Opening Drainage of Amniotic Fluid, Therapeutic from Products of Conception, Via Natural or Artificial Opening [facility] Start: 02-13-2023 Hospital admission [facility] Start: 02-13-2023 Hospital admission [facility] Start: 02-13-2023 End: 02-13-2023 [facility] Start: 02-01-2023 [facility] Start: 02-01-2023 Hospital admission [facility] Start: 02-01-2023 Bacteria identified in Urine by Culture [facility] Start: 01-31-2023 [facility] Start: 01-30-2023 Hospital admission [facility] Start: 01-22-2023 [facility] Start: 01-21-2023 [facility] Start: 01-05-2023 Group B Streptococcu s Culture Group B Streptococcus Culture [facility] Start: 12-01-2022 Respiratory Panel (PCR) Respiratory Panel (PCR) [facility] Start: 11-21-2022 [facility] Start: 11-20-2022 [facility] Start: 11-20-2022 Hospital admission [facility] Start: 11-19-2022 [facility] Start: 11-19-2022 Hospital admission [facility] Start: 11-19-2022 [facility] Start: 10-18-2021 End: 10-18-2021 [facility] Work Phone: Start: 10-18-2021 Hospital admission [facility] Work Phone: Start: 2020 Screening for malign ant neoplasm of cervix Pap Smear [facility] Start: 02-16-2020 DTaP,Tdap and Td Vac cines (2 - Td or Tdap) DTaP,Tdap and Td Vaccines (2 - Td or Tdap) [facility] Start: 2017 Adult BMI Follow Up Plan Adult BMI Follow Up Plan [facility] Start: 2017 Adult BMI Screening Adult BMI Screen ing [facility] Start: 2011 Depression Screening Depression Scre ening [facility] Start: 2011 Tobacco Screening Tobacco Screening [facility] Bacteria identified in Urine by Culture [facility] Bacteria identified in Urine by Culture Urine [...] 04/06/2024 Glucose measurement estimated from glycated hemoglobin [facility] Hemoglobin A1c/Hemoglobin.total in Blood [facility] Hemoglobin A1c/Hemoglobin.total in Blood Hemoglobin A1c Lab [...] Insulin [Units/volum e] in Serum or Plasma [facility] Insulin [Units/volum e] in Serum or Plasma [facility] Insulin [Units/volum e] in Serum or Plasma [facility] Neisseria gonorrhoea e DNA [Presence] in Unspecified specimen by SVETLANA with probe detection Neisseria gonorrhea DNA probe, direct Lab Routine STD exposure Vaginal discharge Ordered: 04/06/2024 [facility] Comment on above: Ordered: 04/06/2024 Patient Education [facility] Work Phone: Patient referral [facility] Work Phone: Reagin Ab [Presence] in Serum by RPR [facility] Work Phone: Reagin Ab [Presence] in Serum by RPR [facility] Reagin Ab [Presence] in Serum by RPR RPR Lab Routine Missed menses , unspecified gestational age Ordered: 02/03/2024 [facility] Comment on above: Ordered: 02/03/2024 Respiratory pathogen s DNA and RNA panel - Nasopharynx by SVETLANA with non-probe detection [facility] Rubella antibody, IgG Rubella an tibody, IgG Lab Routine Missed menses , unspecified gestational age Ordered: 02/03/2024 [facility] Comment on above: Ordered: 02/03/2024 Streptococcus agalac tiae [Presence] in Unspecified specimen by Organism specific culture [facility] SURESWAB(R) ADVANCED VAGINITIS PLUS, TMA SUREAB(R) ADVANCED VAGINITIS PLUS, TMA Pathology and Cytology Routine STD exposure Vaginal discharge Ordered: 04/06/2024 [facility] Work Phone: Comment on above: Ordered: 04/06/2024 Thyroperoxidase Ab [Units/volume] in Serum or Plasma [facility] Thyrotropin [Units/v olume] in Serum or Plasma [facility] Thyrotropin [Units/v olume] in Serum or Plasma TSH Lab Routine , unspecified gestational age Encounter for supervision of normal first in first trimester Ordered: 02/03/2024 [facility] Comment on above: Ordered: 02/03/2024 Thyroxine (T4) free index in Serum or Plasma by calculation [facility] Thyroxine measurement [facility] Triiodothyronine (T3 ) [Mass/volume] in Serum or Plasma [facility] Triiodothyronine res in uptake (T3RU) in Serum or Plasma [facility] Immunizations Immunization Date Immunization Notes Care Provider Arcadio galicia 04-09-2023 influenza virus vaccine, unspecified formulation Nom Nurse [facility] 02-13-2023 tetanus toxoid, reduced diphtheria toxoid, and acellular pertussis vaccine, adsorbed ASSOCIATE DIRECTOR REGULATORY AFFAIRS-C Nataly Toure Work Phone: [facility] 01-10-2021 influenza, injectable, quadrivalent, preservative free DO Obdulia Oneil Work Phone: [facility] 02-15-2010 tetanus toxoid, reduced diphtheria toxoid, and acellular pertussis vaccine, adsorbed Noms Nurse [facility] Work Phone: 12-13-2008 novel [id number], preservative-free, injectable Noms Nurse [facility] 12-13-2008 influenza virus vaccine, unspecified formulation Ni Carroll MD Work Phone: [facility] 07-21-2000 hepatitis B vaccine, pediatric or pediatric/adolescent dosage Noms Nurse [facility] 07-21-2000 measles, mumps and rubella virus vaccine Noms Nurse [facility] 1999 poliovirus vaccine, inactivated Noms Nurse [facility] NEGATED: Highlighted row has not occurred!01-10-2021 tetanus toxoid, reduced diphtheria toxoid, and acellular pertussis vaccine, adsorbed DO Obdulia Oneil Work Phone: [facility] Payers Date Payer Category Payer Self-pay [id number] 2021 Medicaid (Managed Care) [facility] MEDICAID [id number] 1999 Unknown [id number] .16.840.1.170555.3.579.2. 647 1999 Unknown [id number] 2.16.840.1.904067.3.579.2. 593 1999 Unknown [id number] 2.16.840.1.300824.3.579.2. 593 1999 Unknown [id number] 2.16.840.1.667296.3.579.2. 593 1999 Unknown [id number] 2.16.840.1.988172.3.579.2. 593 1999 Unknown [id number] 2.16.840.1.103811.3.579.2. 593 1999 Unknown [id number] 2.16.840.1.692873.3.579.2. 1259 1999 Unknown [id number] 2.16.840.1.955399.3.579.2. 1259 1999 Unknown [id number] 2.16.840.1.417483.3.579.2. 1259 1999 Unknown [id number] 2.16.840.1.103750.3.579.2. 1259 1999 Unknown [id number] 2.16.840.1.472682.3.579.2. 1259 1999 Unknown [id number] 2.16.840.1.281132.3.579.2. 1259 1999 Unknown [id number] 2.16.840.1.710878.3.579.2. 1286 1999 Unknown [id number] 2.16.840.1.556526.3.579.2. 1286 1994 Medicaid HMO [id number]. [id number] 1959 Private Health Insurance [id number] 1959 Unknown [id number] Unknown [place] BC/BS [id number] Unknown [id number] 2.16.840.1.155641.3.579.2. 531 Unknown [id number] 2.16.840.1.386903.3.579.2. 531 Unknown [id number] 2.16.840.1.315121.3.579.2. 531 Unknown [id number] 2.16.840.1.644416.3.579.2. 531 Unknown [id number] 2.16.840.1.841835.3.579.2. 531 Unknown [id number] 2.16.840.1.478968.3.579.2. 531 Unknown [id number] 2.16.840.1.825779.3.579.2. 531 Unknown [id number] 2.16.840.1.350636.3.579.2. 531 Unknown [id number] 2.16840.1.127671.3.579.2. 531 Unknown [id number] 2.16.840.1.408388.3.579.2. 531 Unknown [id number] 2.16.840.1.529433.3.579.2. 531 Unknown [id number] 2.16.840.1.840232.3.579.2. 531 Unknown [id number] 2.16840.1.095393.3.579.2. 531 Unknown [id number] 2.16840.1.785937.3.579.2. 531 Unknown [id number] 2.16840.1.663574.3.579.2. 531 Unknown [id number] 2.16840.1.466319.3.579.2. 531 Unknown [id number] 2.16840.1.150926.3.579.2. 531 Social History Date Type Detail Facility Start: 10-18-2021 End: 07-28-2022 Tobacco smoking status UTIS Never smoked tobacco (finding) [facility] Start: 2000 Sex Assigned At Female [facility] Start: 07-28-2022 End: 03-17-2024 Tobacco use and exposure Smokeless tobacco non-user [facility] Start: 02-03-2024 End: 04-13-2024 Alcoholic beverage intake Ex-drinker (finding) [facility] Start: 02-12-2023 End: 05-05-2023 History of Social function [facility] Start: 02-12-2023 End: 05-05-2023 Tobacco use panel [facility] Start: 08-24-2022 [facility] Start: 08-24-2022 Alcohol Comment none with preg sascha, Caffeine intake: none [facility] Start: 12-01-2023 [facility] Start: 1999 Sex assigned at Not on file [facility] Start: 04-29-2022 Gender identity Identifies as female gender (finding) [facility] Childcare Unknown [facility] Start: 09-20-2014 Sex Female (finding) [facility] NEGATED: Highlighted row [facility] Goals Date Patient Goal Desired Activity /State Personal health goal Functional Status Date Assessment Result Facility 02-13-2023 Functional status Patient Not at Baseline [facility] Work Phone: Mental Status Date Assessment Result Facility 02-13-2023 Cognitive function Cognitive Sta tus Patient Not at Baseline [facility] Work Phone: Clinical Notes 10-18-2021 to 04-13-2024 [...] Yes Have you been seen here at [facility] in a previous ? No Recent ER visits or hospitalizations? No Bring blood sugar log or meter with you today? (Please bring them with you for every visit at [facility]) N/A Flu vaccine (Dec-April)? Yes Any concerns that you would like me to mention to the provider today? No REASON FOR CONSULTATION: Previa ruled out. HISTORY OF PRESENT ILLNESS: Rosette Alba is a pleasant 24 y.o. G [id number]. at 20w4d due on Estimated Date of [...] and the other consultants, we search on [employer] and all the available care everywhere epic I did review all the imaging studies of the patient available on EMR, ordered by the primary care physician and the other web consultant HABITS: Patient activity no restrictions, diet [...] 22 weeks and 23 weeks gestation at [facility] office. 2. InCase of short cervical length less than 25 mm patient will be a candidate for cerclage which will be performed through the [facility] office. 3. Placenta previa has resolved. 4. Routine care OB provider. 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 Patient does have ultrasound scheduled with us Thank you for allowing me to participate in Rosette Alba . If there any questions please do not hesitate to contact us. Sincerely, NI CARROLL MD documented in this encounter [employer] 04-06-2024 History of Present illness Narrative Reason [...] nursing note reviewed. Exam conducted with a ict programmer present. Vitals: Estimated body mass index is [...] nursing note reviewed. Exam conducted with a ict programmer present. Vitals: Estimated body mass index is [...] or undercooked meat, and stay away from [facility]. Patient has been consulted regarding any further do's and don'ts of . Patient voiced understanding and all questions and concerns were answered. Discussed vaginal progesterone with patient and that medication will be stopped at 36 weeks gestation, and Celestone will be given at 32 weeks. Patient given early 1 hour gtt and MSAFP. Vaginal suppositories sent to [facility]. PVU Orders Placed This Encounter Procedures US [...] or undercooked meat, and stay away from [facility]. 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 UTI (urinary tract infection) Surgical History (Updated 01/08/21 @ 21:48 by Marie Wynn RN) History of placement of ear tubes [employer] HELPER Hx : 5 : 4 Livin EDC [...] % (Auto) 73.3, Lymph % (Auto) 17.0, Mason % (Auto) 8.1, Eos % (Auto) 1.3, Baso % (Auto) 0.3, Neut # (Auto) 7.4, Lymph # (Auto) 1.7, Mason # (Auto) 0.8, Eos # (Auto) 0.1, Baso # (Auto) 0.0, Nucleated RBC % (auto) 0.1 10/18/21 00:27: Urine Color Yellow, Urine Appearance Cloudy A, Urine pH 6.5, Ur Specific [place] 1.020, Urine Protein Trace H, Urine Glucose [...] <Electronically signed by TELMA Smith> 10/18/21 0[facility] Work Phone: 1(196) 926-515609-03-2022 [facility] Diagnosis Onset Date Resolution Status 33 weeks gestation of acute [facility] Work Phone: LOC Enterprisesaluation noteNo assessment information available [facility] Work Phone: [employer]ation note* Diagnosis Onset Date Resolution Status 35 weeks gestation of acute [facility] Work Phone: Evaluation note* Diagnosis Onset Date Resolution Status Iron deficiency anemia [facility] Work Phone: evaluation note* [...] of pre-term labor documented in this encounter [facility] Diagnosis delivery after section- Primary documented in this encounter [facility] instructions Additional Instructions You have a respiratory panel is pending you will be called with any positive results Push fluids Humidifier may be beneficial Tylenol only for your discomfort Follow-up with your PCP and 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 tomorrow for appointment Salt water gargles to soothe your throat Handwashing Rest Return here if any problems persist or worsen including abdominal pain, vaginal bleeding, increased pain, dyspnea or any [facility] Work Phone: InstructionsNot on filedocumented in this encounter [facility] SystemInstructionsNot on filedocumented in this encounter [facility] SystemInstructionsNot on filedocumented in this encounter [facility] Summary Purpose Family History No [...] section and content) DATE CREATED AUTHOR 10/16/2018 [facility] DATE CREATED AUTHOR AUTHOR'S ORGANIZ ATION 07/24/2022 [facility] DATE CREATED AUTHOR AUTHOR'S ORGANIZ ATION 12/17/2023 [facility] DATE CREATED AUTHOR AUTHOR'S ORGANIZ ATION 03/22/2024 [facility] DATE CREATED AUTHOR AUTHOR'S ORGANIZ ATION 04/08/2024 [facility] DATE CREATED AUTHOR AUTHOR'S ORGANIZ ATION 04/15/2024 [facility] Care Teams (unrecognized sec tion and [...] Member Role Status Dates Nataly Toure , ASSOCIATE DIRECTOR REGULATORY AFFAIRS-C Attending Provider Active Team Status: Active Member Role Status Dates Nataly E Shayleesic , ASSOCIATE DIRECTOR REGULATORY AFFAIRS-C Primary Care Provider Active Team Status: Inactive Member Role Status Dates Nataly E Spasic , ASSOCIATE DIRECTOR REGULATORY AFFAIRS-C Primary Care Provider, Attending Provider Active Team Status: Inactive Member Role Status Dates Nataly E Spasic , ASSOCIATE DIRECTOR REGULATORY AFFAIRS-C Primary Care Provider Active Marcello Hudson DO Attending Provider Active Team Status: Inactive Member Role Status Dates Nataly E Spasic , ASSOCIATE DIRECTOR REGULATORY AFFAIRS-C Primary Care Provider Active Mary Kay Cantu DO Attending Provider Active Team Status: Inactive Member Role Status Dates Nataly E Shayleesic , ASSOCIATE DIRECTOR REGULATORY AFFAIRS-C Primary Care Provider Active Jennie Smith MD Attending Provider Active Team Status: Inactive Member Role Status Dates Nataly E Shayleesic , ASSOCIATE DIRECTOR REGULATORY AFFAIRS-C Primary Care Provider Active Staci Ortiz APRN Emergency Provider Active Team Status: Inactive Member Role Status Dates Nataly Brian Jerniganc , ASSOCIATE DIRECTOR REGULATORY AFFAIRS-C Attending Provider Active Services [facility] Primary Care Provider Ac tive [...] Role Status Allison Maguirea Brian Jerniganc , ASSOCIATE DIRECTOR REGULATORY AFFAIRS-C Primary Care Provider Active Radha Molina DO Attending Provider Active Team Status: Inactive Member Role Status Dates Nataly E Shayleesic , ASSOCIATE DIRECTOR REGULATORY AFFAIRS-C Primary Care Provider Active Ede Way MD [...] Member Role Status Dates Nataly Toure , ASSOCIATE DIRECTOR REGULATORY AFFAIRS-C Primary Care Provider Active Start: January 21, 2023 End: January 21, 2023 Radha Molina DO Attending Provider Active S tart: January 21, 2023 End: January 21, 2023 Team Status: Inactive Member Role Status Dates Nataly Toure , ASSOCIATE DIRECTOR REGULATORY AFFAIRS-C Primary Care Provider Active Start: January 22, 2023 End: January 22, 2023 Radha Molina DO Attending Provider Active S tart: January 22, 2023 End: January 22, 2023 Team Status: Inactive Member Role Status Dates Nataly Toure , ASSOCIATE DIRECTOR REGULATORY AFFAIRS-C Primary Care Provider Active Start: January 30, 2023 End: January 31, 2023 Mary Kay Cantu DO Attending Provider Active Start: January 30, 2023 End: January 31, 2023 Team Status: Inactive Member Role Status Dates Nataly Toure , ASSOCIATE DIRECTOR REGULATORY AFFAIRS-C Primary Care Provider Active Start: February 01, 2023 End: February 01, 2023 Radha Molina DO Attending Provider Active S tart: February 01, 2023 End: February 01, 2023 Team Status: Inactive Member Role Status Dates Nataly Toure , ASSOCIATE DIRECTOR REGULATORY AFFAIRS-C Primary Care Provider Active Start: February 13, 2023 End: February 13, [address] MD Admit Provider, Atte nding Provider Active Start: February 13, 2023 End: February 13, 2023 Team Status: Inactive Member Role Status Dates Nataly Toure , ASSOCIATE DIRECTOR REGULATORY AFFAIRS-C Attending Provider Active Start: March 04, 2023 End: March 04, 2023 Team Status: Active Member Role Status Dates Services [facility] Primary Care Provider Ac tive Team Status: Inactive Member Role Status Dates Nataly Toure , ASSOCIATE DIRECTOR REGULATORY AFFAIRS-C Attending Provider Active Start: March 17, 2023 End: March 17, 2023 Services [facility] Primary Care Provider Ac tive Start: March 17, 2023 End: March 17, 2023 Team Status: Inactive Member Role Status Dates Nataly Toure , ASSOCIATE DIRECTOR REGULATORY AFFAIRS-C Attending Provider Active Start: August 03, 2023 End: August 03, 2023 Team Status: Inactive Member Role Status Dates Nataly Toure , ASSOCIATE DIRECTOR REGULATORY AFFAIRS-C Primary Care Provider Active Start: August 20, 2023 End: August 21, 2023 Carmelo Vinson DO Emergency Provider Active St art: August 20, 2023 End: August 21, 2023 Team Status: Inactive Member Role Status Dates Nataly Toure , ASSOCIATE DIRECTOR REGULATORY AFFAIRS-C Primary Care Provider Active Start: September 26, 2023 End: September 27, 2023 JUAN MANUEL HensleyC Emergency Provider Active Start: September 26, 2023 End: September 27, 2023 Team Status: Inactive Member Role Status Dates Nataly Toure , ASSOCIATE DIRECTOR REGULATORY AFFAIRS-C Primary Care Provi emmanuel, Attending Provider Active Start: September 30, 2023 End: September 30, 2023 Team Status: Inactive Member Role Status Dates Nataly Torue , ASSOCIATE DIRECTOR REGULATORY AFFAIRS-C Primary Care Provider Active Start: October 04, 2023 End: October 05, 2023 Carmelo Vinson DO Emergency Provider Active St art: October 04, 2023 End: October 05, 2023 Team Status: Inactive Member Role Status Dates Nataly Toure , ASSOCIATE DIRECTOR REGULATORY AFFAIRS-C Primary Care Provi emmanuel, Attending Provider Active Start: October 07, 2023 End: October 07, 2023 Team Status: Inactive Member Role Status Dates Nataly Jerniganc , ASSOCIATE DIRECTOR REGULATORY AFFAIRS-C Primary Care Provi emmanuel, Referring Provider Active Start: October 20, 2023 End: October 20, 2023 Melania Arceo APRN Attending Provider Active Start: October End: October 20, 2023 Team Status: Active Member Role Status Dates Nataly Toure , ASSOCIATE DIRECTOR REGULATORY AFFAIRS-C Primary Care Provi emmanuel, Referring Provider Active Start: October 20, 2023 Melania Arceo APRN Attending Provider Active Start: October Building Cleaner Relationship Specialty Start Date End Date Unallocated, MD Jose Angel Costa [place] [address] PCP - General 06/29/22 Building Cleaner Relationship Specialty Start Date End Date Unallocated[place] [address] PCP - General 06/29/22 Building Cleaner Relationship Specialty Start Date End Date Unallocated, Jonny Chapa MD [address] [place] [id number] PCP - General 06/29/22 Building Cleaner Relationship Specialty Start Date End Date Unallocated, Jonny Chapa MD [facility] [place] [address] PCP - General 06/29/22 Building Cleaner Relationship Specialty Start Date End Date Tai Chapman MD [address] [place] [id number] PCP - General Family Medicine 02/24/18 Building Cleaner Relationship Specialty Start Date End Date Unallocated, Jonny Chapa MD [facility] [place] [address] PCP - General 06/29/22 Building Cleaner Relationship Specialty Start Date End Date Unallocated, Jonny Chapa MD [address] [place] [id number] PCP - General 06/29/22 Building Cleaner Relationship Specialty Start Date End Date Unallocated, Jonny Chapa MD [facility] [place] [address] PCP - General 06/29/22 Building Cleaner Relationship Specialty Start Date End Date Tai Chapman MD [address] [place] [id number] PCP - General Family Medicine 02/24/18 Building Cleaner Relationship Specialty Start Date End Date Tai Chapman MD [address] [place] [id number] PCP - General Family Medicine 02/24/18 Goals [...] BE BASED ON THE PRIMARY CLINICAL RECORDS. [employer] provides no warranty or guarantee of the accuracy or completeness of information in this document.
[2024-04-30 15:20] VITALS: BP 124/69; PULSE 100; TEMP 36.2
[2024-04-30 15:43] LABS: Bilirubin Urine NEGATIVE (NEGATIVE); Blood Urine MODERATE (NEGATIVE); Clarity Urine CLEAR (CLEAR); Color Urine LT. YELLOW (YELLOW); Glucose Urine UA NEGATIVE (NEGATIVE); Ketones Urine NEGATIVE (NEGATIVE); Leukocyte Esterase Urine NEGATIVE (NEGATIVE); Nitrite Urine NEGATIVE (NEGATIVE); Protein Urine NEGATIVE (NEG/TRACE); Specific Gravity Urine 1.025 (1.005-1.025); Urobilinogen Urine 0.2 EU/dL (0.2-1.0); pH Urine 6.5 (5.0-9.0)
[2024-04-30 15:44] LABS: Urine Microscopic Indicated YES
[2024-04-30 16:02] LABS: Bacteria Urine TRACE #/HPF (NONE SEEN); Cast Seen? NONE SEEN #/LPF (NONE SEEN); Crystals Seen? None Seen #/HPF (None Seen); Mucus Urine MODERATE (NONE SEEN); Squamous Epithelial Cell Urine FEW #/LPF (NONE/RARE); Urine Culture Indicated NO; WBC Urine 0-2 #/HPF (NONE SEEN)
--- NOTE | 2024-04-30 16:21 | PM.OBHP ---
OB - H&P: HPI History of Present Illness Chief complaint: CRAMPS, RED DISCHARGE : 7 Para: 6 Date of last menstrual period: 11/21/2023 Gestational age based on last menstrual period: 23wks 3days Narrative: Second presentation for vaginal bleeding with copious mucus discharge - patient has pictures and red bleeding. Diagnosed 2 days ago for UTI treated with IV Ancef and IV fluids. The patient has been taking the keflex as directed. Cramping more in the back. Prior deliveries - the earliest 32 weeks. History of Present care: good care Abnormal ultrasound findings: followed by MFM for cervical length Resolved placental previa by US Narrative: Thyroid disease GDM taking baby aspirin daily Labs Blood type: A (+) positive Review of Systems ROS Status of ROS: 10 or more systems reviewed and unremarkable except as noted in history and below PFSH PFSH Social History Little interest or pleasure in doing things: not at all Feeling down, depressed, or hopeless: not at all Meds Home Medications and Allergies Allergies Allergy/AdvReac Type Severity Reaction Status Date / Time No Known Drug Allergies Allergy Verified 03/20/24 10:26 Exam Constitutional Vital Signs, click to edit/add: Last Vital Signs Temp 97.2 F L 04/30/24 15:20 Pulse 100 H 04/30/24 15:20 BP 124/69 04/30/24 15:20 Common normals: no apparent distress GI Palpation: soft Other: Sterile speculum - dark blood staining upper vagina, cervix visually closed Extremity Common normals: normal to inspection Neuro Common normals: oriented x3 Psych Common normals: mental status grossly normal Results Labs Labs: Urine 04/30/24 Range/Units 15:20 Urine Color Lt. yellow (YELLOW) Urine Clarity Clear (CLEAR) Urine pH 6.5 (5.0-9.0) Ur Specific [place] 1.025 (1.005-1.025) Urine Protein Negative (NEG/TRACE) mg/dL Urine Glucose (UA) Negative (NEGATIVE) mg/dL OB - A/P Assessment and Plan (1) Vaginal bleeding during , antepartum: Plan IV fluid bolus ancef 1 gm IV every 8 hours patient and family counseled concerning 2nd presentation to L&D to observe overnight with this presentation US today showed normal placenta and cervical length 5cm patient and Mom discussing, all questions answered
[2024-04-30] MEDS: 0.9 % SODIUM CHLORIDE 1,000 ML 999 ML IV (16:30)
[2024-04-30] MEDS: CEFAZOLIN SODIUM/DEXTROSE,ISO 1 GM/50 ML PREMIX IV (16:54)
== END 2024-04-30 19:15 | disposition home or self-care (01) ==
PROVIDERS: Admitting Provider Obstetrics & Gynecology Gynecology; PCP Family Medicine; Visit Provider Obstetrics & Gynecology Gynecology
DX: O46.92 Antepartum hemorrhage, unspecified, second trimester (principal); O23.42 Unspecified infection of urinary tract in pregnancy, second trimester; N39.0 Urinary tract infection, site not specified; O09.212 Supervision of pregnancy with history of pre-term labor, second trimester; Z3A.23 23 weeks gestation of pregnancy
CPT/HCPCS: 59025; 76815; 76817; 81001; 96365; G0378; G0379; J0690

== ENCOUNTER 2024-05-25 10:41 | Outpatient (OUT) | payer OTHER, SELFPAY ==
[2024-05-25 12:15] LABS: Basophils Percent Auto 0.2 % (0.2-2.0); Eosinophils Absolute Auto 0.1 10^3/uL (0.0-0.7); Eosinophils Percent Auto 0.6 % (0.9-7.0); Hematocrit 35.1 % (36.0-48.0); Hemoglobin 11.8 g/dL (12.0-16.0); Immature Granulocytes Abs Auto 0.04 10^3/uL (0.00-0.03); Immature Granulocytes Pct Auto 0.4 % (0.0-0.5); Lymphocytes Absolute Auto 1.4 10^3/uL (1.2-3.8); Lymphocytes Percent Auto 15.5 % (20.5-60.0); Mean Corpuscular HGB Conc 33.6 g/dL (29.9-35.2); Mean Corpuscular Hemoglobin 28.4 pg (26.7-34.0); Mean Corpuscular Volume 84.6 fL (81.0-99.0); Monocytes Absolute Auto 0.6 10^3/uL (0.3-0.8); Monocytes Percent Auto 6.3 % (1.7-12.0); Neutrophils Absolute Auto 6.8 10^3/uL (1.4-6.5); Platelet Count 174 10^3/uL (150-450); Red Blood Count 4.15 10^6/uL (4.20-5.40); White Blood Count 8.9 10^3/uL (4.0-11.0)
[2024-05-25 12:31] LABS: Glucose 1 Hour 199 mg/dL (<130)
== END 2024-05-25 10:42 | disposition home or self-care (01) ==
LOC: LAB 10:49
PROVIDERS: Visit Provider Obstetrics & Gynecology
DX: Z13.1 Encounter for screening for diabetes mellitus (principal)
CPT/HCPCS: 36415; 82950; 85025

== ENCOUNTER 2024-06-26 19:15 | Observation (INO) | payer OTHER, SELFPAY ==
--- OUTSIDE RECORDS SUMMARY | 2024-06-26 19:26 | XMS_ITS | CCD ---
Author Organization [facility] Care Team Providers Care 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 Name Role Phone EBWANDA, SHARLA Admitting Unavailable EBWANDA SHARLA Attending Unavailable OBDULIA ONEIL Referring Unavailable OBDULIA ONEIL Primary Care Unavailable OK Procedure Practitioner Unavailab SHARLA Singh Surgeon Unavailable [place] Procedure Practitioner Unavailab AREN Ferguson Surgeon Unavailable DO Obdulia Oneil Primary Care Provider [phone] DO Radha Molina Attending Provider MD Jennie Smith Admit Provider [phone] MD Jennie Smith Attending Provider Spasic, DIE TRIMMER-C Nataly Torres Attending Provider Spasic, DIE TRIMMER-C Nataly Torres Primary Care Provider [phone] DO Marcello Hudson Attending Provider CORRINA DHALIWAL [...] NONE LISTED Primary Care Unavaila ble Spasic, DIE TRIMMER-C Nataly E Primary Care Provider DO Mary Kay Cantu Attending Provider MD Jennie Smith Attending Provider CADE Ortiz Emergency Provider Spasic, DIE TRIMMER-C Nataly E Attending [place] [facility] Primary Care Prov ider DO Radha Molina Attending Provider [phone] Spasic, DIE TRIMMER-C Nataly E Primary Care Provider DO Mary Kay Cantu Attending Provider MD Jennie Smith Attending Provider CADE Ortiz Emergency Provider Spasic, DIE TRIMMER-C Nataly E Attending Provider [facility] Primary Care Prov ider DO Radha Molina Attending Provider NO FAMILY, PHYSICIAN Primary Care Provider Unava ilable MD Ede Way Admit Provider MD Ede Way Attending Provider Spasic, DIE TRIMMER-C Nataly E Primary Care Provider DO Mary Kay Cantu Attending Provider Spasic, DIE TRIMMER-C Nataly E Attending Provider DO Radha Molina Attending Provider [facility] Primary Care Prov ider Spasic, DIE TRIMMER-C Nataly E Attending Provider Spasic, DIE TRIMMER-C Nataly E Primary Care Provider DO Carmelo Vinson Emergency Provider RANDALL Leon Emergency Provider [phone] Spasic, DIE TRIMMER-C Nataly E Referring Provider CADE Arceo Racheal [...] Unavailable Spasic, Nataly E Attending Unavailable Spasic, Ntaaly E Admitting Unavailable Spasic, Nataly E Attending [...] Attending Unavailable Spasic, Nataly E Admitting Unavailable [facility] Primary Care U navailable Spasic, [...] Admitting Unavailable Rinkes, Radha Attending Unavailable Unallocated Riley KEYs Provider Primary Care Provi emmanuel Tai Chapman MD Primary Care Provider [phone] NI CARROLL Attending Unavailable CAMACHO HERNANDEZ Referring Unavailable TAI CHAPMAN Primary Care Unavailable CAMACHO HERNANDEZ R Referring Unavailable TAI CHAPMAN Primary Care Unavailable NI CARROLL Attending Unavailable CAMACHO HERNANDEZ Referring Unavailable TAI CHAPMAN Primary Care Unavailable CAMACHO HERNANDEZ Attending Unavailable KIM KHOURY Attending Unavailable CAMACHO HERNANDEZ Attending Unavailable TRUDY COOL Attending Unavailable RIYA ALEXANDER Referring Unavailable CAMACHO HERNANDEZ Attending Unavailable RIYA ALEXANDER Attending Unavailable Allergies Allergy Classification Reported Allergen(s) Allergy Type Date of Onset Reaction(s) Facility (1 source) 02599,00 Drug allergy (disorder) 07-01-2012 [facility] Medications Current Medications Medication Drug Class(es) Dates Sig (Normalized) Sig (Original) acetaminophen 300 mg / codeine phosphate 30 mg oral tablet (5 sources) Opioid Agonist Start: 06-01-2024 take 1 tablet by mouth every six hours for pain acetaminophen-cod eine (Tylenol w/ Codeine #3) 300-30 MG tablet Indications: Chronic cluster headache, not intractable Take 1 tablet by mouth every 6 (six) hours if needed for severe pain for up to 20 doses 20 tablet 06/01/2024 Active acetaminophen 325 mg / oxyCODONE hydrochloride 5 mg oral tablet (5 sources) Opioid Agonist Start: 09-26-2023 take 1 tablet by mouth every six hours Oxycodone-Acetami nophen (Percocet) 5-325 mg tablet Active 1 TAB PO Q6H 10 3 September 26, 2023 ALPRAZolam 0.25 mg oral tablet (1 source) Benzodiazepine Start: 10-20-2023 Alprazolam Active 0.25 MG PO As Directed October 20, 2023 12:00am amoxicillin 875 mg oral tablet (4 sources) Penicillin-class Antibacterial Start: 05-29-2024 End: 06-08-2024 take 1 tablet by mouth in the morning amoxicillin (Amoxil) 875 MG tablet Indications: Pharyngitis, unspecified etiology , Strep throat Take 1 tablet (875 mg) by mouth in the morning and 1 tablet (875 mg) before bedtime. Do all this for 10 days. Pt to inform OB of starting medication. 20 tablet 05/29/2024 06/08/2024 Active Blood Glucose Monitoring Suppl (D-Care Glucometer) w/Device kit (7 sources) Start: 05-29-2024 End: 05-29-2025 Blood Glucose Monitoring Suppl (D-Care Glucometer) w/Device kit Indications: Gestational diabetes mellitus (GDM), antepartum, gestational diabetes method of control unspecified , Elevated glucose tolerance test 1 kit Daily Use four times daily to check FSBS. In the morning prior to breakfast & 1 hour after each meal for a total of 4times daily. 1 kit 05/29/2024 05/29/2025 Active ferrous sulfate 325 mg delayed release oral tablet (20 sources) Start: 10-20-2023 take 325 mg by mouth once daily Ferrous Sulfate Active 325 MG PO Daily October 20, 2023 12:00am End: 06-01-2024 take 1 tablet by mouth at mealtime ferrous sulfate 325 (65 Fe) MG tablet Take 325 mg by mouth in the morning. Take with meals. 06/01/2024 Discontinued 3 ml liraglutide 6 mg/ml pen injector [...] 12:00am methylPREDNISolone (20 sources) Corticosteroid Start: 04-06-2024 End: 05-04-2024 methylPREDNISolone (Medrol Dospak) 4 MG tablets Indications: URI, acute Day 1: 6 tablets Day 2: 5 tablets Day 3: 4 tablets Day 4: 3 tablets Day 5: 2 tablets Day 6: 1 tablet 21 tablet 04/06/2024 05/04/2024 Discontinued Start: 04-06-2024 methylPREDNISo lone (Medrol Dospak) 4 MG tablets Indications: URI, [...] bedtime 30 suppository 6 03/09/2024 04/08/2024 Active promethazine hydrochloride 12.5 mg oral tablet (5 sources) Phenothiazine Start: 06-02-19 take 1 tablet by mouth every six hours as needed for nausea and nausea, then take 1 tablet by mouth every six hours as needed for nausea and nausea promethazine (Phenergan) 12.5 MG tablet Indications: Chronic cluster headache, not intractable Take 1 tablet (12.5 mg) by mouth every 6 (six) hours if needed for nausea or vomiting for up to 30 doses Take 1 tablet by mouth every 6 hours as needed for nausea. 30 tablet 2 06/01/2024 Active venlafaxine 100 mg oral tablet (20 sources) Serotonin and Norepinephrine Reuptake Inhibitor Start: 10-20-19 take 50 mg by mouth twice daily Venlafaxine Active 50 MG PO Twice daily October 20, 2023 12:00am Start: 03-18-2023 End: 05-04-2024 take 1 capsule by mouth once daily at mealtime venlafaxine XR (Effexor XR) 75 MG 24 hr capsule TAKE 1 CAPSULE BY MOUTH ONCE DAILY WITH FOOD 03/18/2023 05/04/2024 Discontinued Start: 06-23-2022 End: 11-19-2022 take 37.5 mg by mouth once daily at bedtime Venlafaxine Discontinued 37.5 MG PO Daily at bedtime June 23, 2022 12:00am November 19, 2022 12:21pm take 1 capsule by [facility] every twenty-four hours in the morning [...] by mouth every four hours Hydrocodone-Acetam inophen (Hensley) 5-325 mg tablet Discontinued 2 TAB PO [...] 15, 2017 12:00am November 22, 2017 12:01am azithromycin 250 mg oral tablet (14 sources) Macrolide Antimicrobial Start: 06-01-2024 End: 06-15-2024 azithromycin (Zithromax Z-Valencia) 250 MG tablet Indications: Upper respiratory tract infection, unspecified type As directed 6 tablet 06/01/2024 06/15/2024 Discontinued Start: 04-06-2024 End: 05-04-2024 azithromycin (Zithromax Z-Pa k) 250 MG tablet Indications: URI, acute As directed 6 tablet 04/06/2024 05/04/2024 Discontinued Start: 02-24-2018 azithromycin ( ZITHROMAX Z-VALENCIA) 250 mg tablet Take 2 tablets the first day then 1 tablet every day for 4 days. 6 tablet 02/24/2018 Active benzonatate 100 mg oral capsule (20 sources) [...] 20, 2017 1:01pm 168 hr ethinyl estradiol 0.33835 mg/hr / norelgestromin 0.13886 mg/hr transdermal system (20 sources) Progestin, Estrogen [...] 09, 2021 1:00am January 10, 2021 3:22pm isopropyl alcohol 0.7 ml/ml medicated pad (4 sources) Start: 05-29-2024 End: 06-01-2024 Alcohol Swabs (Alcohol Prep Pad) 70 % pads Indications: Gestational diabetes mellitus (GDM), antepartum, gestational diabetes method of control unspecified , Elevated glucose tolerance test Apply 1 Pad topically Daily Use four times daily to check FSBS. 150 each 3 05/29/2024 06/01/2024 Discontinued levothyroxine sodium 0.025 mg oral tablet (20 [...] painful area for up to 12 hrs magnesium oxide 400 mg oral tablet (6 sources) Start: 05-04-2024 End: 09-01-2024 take 1 tablet by mouth once daily magnesium oxide (Mag-Ox) 400 MG tablet Indications: Nonintractable headache, unspecified chronicity pattern, unspecified headache type Take 1 tablet (400 mg) by mouth Daily 30 tablet 3 05/04/2024 06/01/2024 Discontinued methocarbamol 750 mg oral tablet (20 sources) [...] 20, 2022 12:00am February 13, 2023 7:43pm Al[place]-3 Fatty Acids-Fish Oil (20 sources) Start: 06-23-2022 End: 11-19-2022 take 1 capsule by mouth once daily Al[place]-3 Fatty Acids-Fish Oil Discontinued 1 CAP PO Daily June 22, 2022 11:00pm November 19, 2022 11:22am Start: 06-23-2022 End: 11-19-2022 take 1 capsule by mouth once daily [place]-3 Fatty Acids-Fish Oil Discontinued 1 CAP PO Daily June 23, 2022 12:00am November 19, 2022 12:22pm Start: 06-23-2022 take 1 capsule by mo [facility] once daily [place]-3 Fatty Acids-Fish Oil Active 1 CAP PO [...] daily Prednisone Discontinued 40 MG PO Daily 11 19November 07, 2017 12:00am November 12, 2017 12:01am Vabersry-Ggj-Cl-Fa () 1 mg Tablet (20 sources) Start: 11-19-2022 End: 02-13-2023 take 1 tablet by mouth once daily Ukalorec-Ggw-Zy-Fa () 1 mg Tablet Discontinued 1 TAB PO Daily November 19, 2022 12:00am February 13, 2023 7:43pm Start: 11-19-2022 End: 02-13-2023 take 1 tablet by mouth once daily Qwyemynt-Tqv-Pi-Fa () 1 mg Tablet Discontinued 1 TAB PO Daily November 18, 2022 11:00pm February 13, 2023 6:43pm Start: 11-19-2022 take 1 tablet by long th once daily Gscogylx-Tun-Df-Fa () 1 mg Tablet Active 1 TAB PO Daily November 18, 2022 11:00pm Start: 11-19-2022 take 1 tablet by long th once daily Jjsioddu-Awo-Rs-Fa () 1 mg Tablet Active 1 TAB [...] Translations: [Iron deficiency anemia, unspecified] 10-20-2023 Episodic Diabetes mellitus without complication (2 sources) Abnormal glucose tolerance test; Translations: [Other abnormal glucose] 06-15-2024 Episodic Disorders of lipid metabolism (3 sources) Pure hypercholesterolemia, unspecified; Translations: [Pure hyperglyceridemia] Onset: 06-04-2022 Chronic Early or threatened labor (5 sources) labor without delivery, unspecified trimester; Translations: [ delivery following section] Onset: 01-21-2023 04-13-2024 Episodic Genitourinary symptoms and ill-defined conditions (1 source) Hematuria, unspecified; Translations: [Hematuria, unspecified] Onset: 10-04-2023 Episodic Headache; including migraine (2 sources) Chronic cluster headache; Translations: [Chronic cluster headache, not intractable] 06-01-2024 Chronic Headache; including migraine (1 source) Headache; Translations: [Nonintractable headache, unspecified chronicity pattern, unspecified headache type] 05-04-2024 Episodic Headache; including migraine (1 source) Headache; [...] TRI] Onset: 07-14-2022 Episodic Other complications of (1 source) Short cervical length in ; Translations: [Cervical shortening, unspecified trimester] 05-04-2024 Episodic Other complications of (1 source) Supervision of other high risk pregnancies, unspecified trimester; Translations: [Supervision of other high risk pregnancies, unspecified trimester] Onset: 05-03-2024 Episodic Other female genital disorders (20 sources) [...] 03-04-2023 Chronic Other and delivery including normal (11 sources) ; Translations: [Encounter for supervision of normal , unspecified, unspecified trimester] 02-03-2024 Episodic Other screening for suspected conditions (not mental disorders or infectious disease) (4 sources) Patient encounter status; Translations: [Encounter for [...] [20 weeks gestation of ] 04-06-2024 Episodic Residual codes; unclassified (1 source) Gestation period, 24 weeks; Translations: [24 weeks gestation of ] 05-04-2024 Episodic Residual codes; unclassified (2 sources) Gestation period, 27 weeks; Translations: [27 weeks gestation of ] 05-29-2024 Episodic Residual codes; unclassified (2 sources) Gestation period, 28 weeks; Translations: [28 weeks gestation of ] 06-01-2024 Episodic Residual codes; unclassified (2 sources) Gestation period, 30 weeks; Translations: [30 weeks gestation of ] 06-15-2024 Episodic Spondylosis; intervertebral disc disorders; other back [...] screening for Streptococcus B] Onset: 01-05-2023 Unclassified (20 sources) OB Reminders Onset: 09-02-2022 09-02-2022 Urinary [...] tolerance complicating ; childbirth; or the puerperium (20 sources) Abnormal glucose complicating ; Translations: [Gestational [...] TRI] Onset: 08-11-2021 Episodic Other complications of (20 sources) H/O: premature delivery; Translations: [Supervision of other high risk pregnancies, unspecified trimester] Onset: 06-25-2022 06-25-2022 Episodic Other complications of (20 sources) Finding related to ; Translations: [Other specified related conditions, third trimester] Onset: 06-25-2022 06-25-2022 Episodic Polyhydramnios and other problems of amniotic cavity (20 sources) Polyhydramnios with problem; Translations: [Polyhydramnios, third [...] Test Name Value Interpretation Reference Range Facility Urinalysis macro (dipstick) panel (U)on 06-15-2024 Bilirubin, UA Negative Negative - 4(70) +++ mg/dL [facility] Blood, UA Negative Negative - 50 Isaac/mcL [facility] Clarity, UA Clear [facility] Color, UA Yellow [facility] Glucose, UA Positive Negative - 2000(110) ++++ mg/dL [facility] Comment on above: 100 Interpretation and review of laboratory results Abnormal [facility] Ketones, UA Positive Negative - 160(16) ++++ mg/dL [facility] Comment on above: trace Leukocytes, UA Trace Negative - 500+++ Shreya/mcL [facility] Nitrite, UA Negative Negative - Positive [facility] pH, UA 7 5 - 9 [facility] Protein, UA Trace Negative - 2000(20) ++++ mg/dL [facility] Spec Grav, UA 1.025 1 - 1.03 [facility] Urobilinogen, UA 1.0 0.2 - 12 mg/dL [facility] US OB FOLLOW UP TRANSABDOMIN AL APPROACHon 06-08-2024 US OB FOLLOW UP TRANSABDOMINAL APPROACH TITLE OF EXAM: OB Ultrasound: REASON FOR EXAM: Polyhydramnios. COMPARISON: 06/01/2024 TECHNIQUE: Grayscale and M-mode Doppler imaging is performed. FINDINGS: heart rate: 148 bpm DAMIAN: 16.5 cm (9.2-23.1) BPD: 7.6 cm HC: 27.4 cm AC: 25.5 cm FL: 5.6 cm GA for sonogram: 29.4 wk (27.6-31.2) LYNDSAY: 08/23/2024 Weight Estimate: Weight: 1437 gm / 3 lbs, 2 oz (7452-9867 gm) [place] Normal: 1405 gm (0424-8161 gm) [place] Wt%: 57% for 29.1 wks Limited for: Growth Presentation: Cephalic Lie: Longitudinal Amniotic Fluid: 16.5 cm Between 5th and 95 percentile. Largest Fluid Pocket: 6.1 cm Heart Rate: 148 bpm Somatic Motion: Yes IMPRESSION: 1. Single live intrauterine gestation in cephalic position estimated at 29.4 weeks. This is concordant with the provided clinical dates. 2. DAMIAN is 18.2 cm which is within acceptable limits. MVP 6.1 cm. Dictated and transcribed 06/08/24/dpd This report has been electronically signed and approved by the interpreting radiologist. Normal Not Available Comment on above: Order Comment: US OB SCAN FOR GROWTH Estimated Date of Delivery: 08/23/24 Gestational Age as of 06/01/2024: 28w1d US OB TRANSVAGINALon 025 US OB TRANSVAGINAL EXAM: US OB TRANSVAG INAL HISTORY: Shortened cervix. History of pre-term delivery. COMPARISON: Ob ultrasound 05/03/2024 - Report only. TECHNIQUE: Two-dimensional transabdominal grayscale ultrasound imaging of the cervix was performed. FINDINGS: The cervix measures 4.0 cm in length and the cervical os is closed. IMPRESSION: 1. Cervical canal is within normal limits. Interpreted by: Electronically signed by TAI MONTERO II, MD, PHD at 03-Jun-2024 06:46:50 PM [facility] Normal Not Available Comment on above: Order Comment: US OB TRANSVAGINAL (CERVICAL LENGTH) Estimated Date of Delivery: 08/23/24 Gestational Age as of 05/04/2024: 24w1d Urinalysis macro (dipstick) panel (U)on 06-01-2024 Bilirubin, UA Negative Negative - 4(70) +++ mg/dL [facility] Blood, UA Positive Negative - 50 Isaac/mcL [facility] Comment on above: Trace-intact Clarity, UA Clear [facility] Color, UA Yellow [facility] Glucose, UA Negative Negative - 1999(110) ++++ mg/dL [facility] Interpretation and review of laboratory results Abnormal [facility] Ketones, UA Negative Negative - 160(16) ++++ mg/dL [facility] Leukocytes, UA Negative Negative - 500+++ Shreya/mcL [facility] Nitrite, UA Negative Negative - Positive [facility] pH, UA 7 5 - 9 [facility] Protein, UA Negative Negative - 1999(20) ++++ mg/dL [facility] Spec Grav, UA 1.02 1 - 1.03 [facility] Urobilinogen, UA 0.2 0.2 - 12 mg/dL [facility] ALL CBC WITH AUTO DIFFon BASOPHILS ABSOLUTE AUTO 0 [facility] Basophils/100 WBC (Bld) 0.2 % 0.2 - 2.0 % [facility] Eosinophils/100 WBC (Bld) 0.6 % Low 0.9 - 7.0 % [facility] Erythrocyte distribution width (RBC) [Ratio] 13 % 11.0 - 15.0 % [facility] Hematocrit (Bld) [Volume fraction] 35.1 % Low 36.0 - 48.0 % [facility] Hemoglobin (Bld) [Mass/Vol] 11.8 g/dL Low 12.0 - 16.0 g/dL [facility] IMMATURE GRANULOCYTES ABS AUTO 0.04 High [facility] Immature granulocytes/100 WBC (Bld) 0.4 % 0.0 - 0.5 % [facility] Interpretation and review of laboratory results Abnormal [facility] LYMPHOCYTES ABSOLUTE AUTO 1.4 [facility] Lymphocytes/100 WBC (Bld) 15.5 % Low 20.5 - 60.0 % [facility] MCH (RBC) [Entitic mass] 28.4 pg 26.7 - 34.0 pg [facility] MCHC (RBC) [Mass/Vol] 33.6 g/dL 29.9 - 35.2 g/dL [facility] MCV (RBC) [Entitic vol] 84.6 fL 81.0 - 99.0 fL [facility] MONOCYTES ABSOLUTE AUTO 0.6 [facility] Monocytes/100 WBC (Bld) 6.3 % 1.7 - 12.0 % [facility] NEUTROPHILS ABSOLUTE AUTO 6.8 High [facility] Neutrophils/100 WBC (Bld) 77 % High 43.0 - 75.0 % [facility] Platelet mean volume (Bld) [Entitic vol] 11 fL 9.5 - 13.[address] [facility] EO # 0.1 [facility] PLT 174 [facility] RBC 4.[address] [facility] WBC 8.9 [facility] Urinalysis macro (dipstick) panel (U)on 05-04-2024 Bilirubin, UA Negative Negative - 4(70) +++ mg/dL [facility] Blood, UA Negative Negative - 50 Isaac/mcL [facility] Clarity, UA Clear [facility] Color, UA Yellow [facility] Glucose, UA Negative Negative - 1999(110) ++++ mg/dL [facility] Interpretation and review of laboratory results Abnormal [facility] Ketones, UA Negative Negative - 160(16) ++++ mg/dL [facility] Leukocytes, UA Trace Negative - 500+++ Shreya/mcL [facility] Nitrite, UA Negative Negative - Positive [facility] pH, UA 7 5 - 9 [facility] Protein, UA Negative Negative - 1999(20) ++++ mg/dL [facility] Spec Grav, UA 1.02 1 - 1.03 [facility] Urobilinogen, UA 0.2 0.2 - 12 mg/dL [facility] Outside Recordson 05-01-2024 Outside Records [id number] [facility] UA (CLEAN/CATCH) 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 YELLOW YELLOW [facility] GLUCOSE URINE UA Negative NEGATIVE mg/dL [facility] Interpretation and review of laboratory results Abnormal [facility] Ketones Ql (U) Negative NEGATIVE mg/dL [facility] Leukocyte esterase Test strip Ql (U) Negative NEGATIVE [facility] NITRITE URINE Negative NEGATIVE [facility] pH (U) 6.5 [pH] 5.0 - 9.0 [facility] PROTEIN URINE Negative NEG/TRACE mg/dL [facility] SPECIFIC GRAVITY URINE <=1.005 Abnormal 1.005 - 1.025 [facility] URINE MICROSCOPIC INDICATED NO [facility] UROBILINOGEN URINE 0.2 EU/dL 0.2 - 1.0 EU/dL [facility] IGP,APTIMA HPV,AGE GDLNon AGE GDLN ACOG TESTING Note . [facility] Comment on above: TESTS RESULT FLAG [facility] REF RANGE LAB Clinician Provided Cytology Information Source.............Cervix No. of containers..01 ThinPrep Vial Age Algo ACOG Rossana... FLAG LEGEND: L-Low Normal,H-High Normal,LL-Alert Low,HH-Alert High <-Panic Low,>-Panic High,A-Abnormal,AA-Critical Abnormal Performed at: 01 [facility] [address] [place] [address] Christina Chan MD, IGP, RFX APTIMA HPV ASCU Note . [facility] Comment on above: TESTS RESULT FLAG [facility] REF RANGE LAB DIAGNOSIS: 02 NEGATIVE FOR INTRAEPITHELIAL LESION OR MALIGNANCY. Specimen adequacy: 02 Satisfactory for evaluation. No endocervical component is identified. Performed by: 02 Meghan Kaufman Acls Nurse (ASCP) . 02 Note: Note 02 The Pap [...] <-Panic Low,>-Panic High,A-Abnormal,AA-Critical Abnormal Performed at: [address] [id number] Christina Chan MD, Performed at: =G - [facility] [address] [id number] Human Resources Team Member: Christina Chan MD, Phone: [phone] Performed at: - [facility] [id number] Human Resources Team Member: Christina Chan MD, Phone: [phone] SPATULA-ALONE CERVIX [facility] RECURRENT VAGINITIS (HTRX)on 04-07-2024 ATOPOBIUM VAGINAE 0 [facility] ATOPOBIUM VAGINAE Not detected [facility] BVAB 2,3 (BACTERIAL VAGINOSIS ASSOCIATED BACTERIA 2, 3); MOBILUNCUS SPP 0 [facility] BVAB 2,3 (BACTERIAL VAGINOSIS ASSOCIATED BACTERIA 2, 3); MOBILUNCUS SPP Not detected [facility] CURT ALBICANS, PARAPSILOSIS, TROPICALIS 0 [facility] CURT ALBICANS, PARAPSILOSIS, TROPICALIS Not detected [facility] CURT GLABRATA 0 [facility] CURT GLABRATA Not detected [facility] CURT KRUSEI 0 [facility] CURT KRUSEI Not [facility] CHL[facility]DIA TRACHOMATIS 0 NOM [facility] CHLAMYDIA TRACHOMATIS Not detected [facility] GARDNERELLA VAGINALIS 0 [facility] GARDNERELLA VAGINALIS Not detected N [facility] MEGASPHAERA (TYPES 1, 2) 0 [facility] MEGASPHAERA (TYPES 1, 2) Not detected [facility] MYCOPLASMA GENITALIUM 0 [facility] MYCOPLASMA GENITALIUM Not detected N [facility] NEISSERIA GONORRHOEAE 0 [facility] NEISSERIA GONORRHOEAE Not detected N [facility] TRICHOMONAS VAGINALIS 0 [facility] TRICHOMONAS VAGINALIS Not detected N [facility] Urinalysis macro (dipstick) panel (U)on 04-06-2024 Bilirubin, UA Negative Negative - 4(70) +++ mg/dL [facility] Blood, UA Negative Negative - 50 Isaac/mcL [facility] Clarity, UA Clear [facility] Color, UA Yellow [facility] Glucose, UA Negative Negative - 1999(110) ++++ mg/dL [facility] Interpretation and review of laboratory results Normal [facility] Ketones, UA Negative Negative - 160(16) ++++ mg/dL [facility] Leukocytes, UA Negative Negative - 500+++ Shreya/mcL [facility] Nitrite, UA Negative Negative - Positive [facility] pH, UA 8.5 5 - 9 [facility] Protein, UA Negative Negative - 2000(20) ++++ mg/dL [facility] Spec Grav, UA 1.02 1 - 1.03 [facility] Urobilinogen, UA 1.0 0.2 - 12 mg/dL [facility] ED Note - Physicianon 2024 ED Note - Physician [id number]#1.00OTGTI FF [facility] Rad - Other Radiology Report on 03-20-2024 Rad - Other Radiology Report [id number]#1.00OTGTI FF [facility] Rad - Other Radiology Report on 03-14-2024 Rad - Other Radiology Report [id number]#1.00OTGTIF F [facility] US OB CERVICAL LENGTHon 02-16 [place] [address] Ultrasound Report Signed Patient: ROSETTE ALBA MR#: [id number] : 2000 Acct:[id number] Age/Sex: 23 / F ADM Date: 03/14/24 Loc: US Attending Dr: Camacho Hernandez D.O. Ordering Physician: Camacho Hernandez D.O. Date of Service: 03/14/24 Procedure(s): US OB cervical length Accession Number(s): [id number] cc: Camacho Hernandez D.O.; OBDULIA ONEIL [place] [id number] Patient Name: ROSETTE ALBA MRN: [facility]:[id number] date: 2000 Sex: F Assigned Patient Location: US Current Patient Location: Accession/Order Number: [id number] Exam Date: 03/14/2024 09:32 Report Date: 03/14/2024 [...] Signed By: 03/14/24 1006 DD/ 1003 TD/TT: Manager Social Responsibility: [facility] Radiology, Radiologi MD Emma reddy 03/14/2024 [place] [address] Ultrasound Report Signed Patient: ROSETTE ALBA MR#: [id number] : 2000 Acct:[id number] Age/Sex: 23 / F ADM Date: 03/14/24 Loc: US Attending Dr: Camacho Hernandez D.O. Ordering Physician: Camacho Hernandez D.O. Date of Service: 03/14/24 Procedure(s): US OB cervical length Accession Number(s): [id number] cc: Caamcho Hernandez D.O.; OBDULIA ONEIL The [place] [id number] Patient Name: ROSETTE ALBA MRN: [id number] date: 2000 Sex: F Assigned Patient Location: US Current Patient Location: US Accession/Order Number: [id number] Exam Date: 03/14/2024 09:32 Report Date: 03/14/2024 [...] Signed By: 03/14/24 1006 DD/ 1003 TD/TT: Manager Social Responsibility: [facility] Radiology Study observation (narrative) [facility] OB CERVICAL LENGTHOrdered By: Radiologist Radiology on 03-14-2024 [facility] Work Phone: Urinalysis macro (dipstick) panel (U)on 03-09-2024 Bilirubin, UA Negative Negative - 4(70) +++ mg/dL [facility] Blood, UA Negative Negative - 50 Isaac/mcL [facility] Clarity, UA Clear [facility] Color, UA Yellow [facility] Glucose, UA Negative Negative - 2000(110) ++++ mg/dL [facility] Interpretation and review of laboratory results Normal [facility] Ketones, UA Negative Negative - 160(16) ++++ mg/dL [facility] Leukocytes, UA Negative Negative - 500+++ Shreya/mcL [facility] Nitrite, UA Negative Negative - Positive [facility] pH, UA 7.5 5 - 9 [facility] Protein, UA Negative Negative - 1999(20) ++++ mg/dL [facility] Spec Grav, UA 1.02 1 - 1.03 [facility] Urobilinogen, UA 1.0 0.2 - 12 mg/dL [facility] Free Cell DNAon 2024 [facility] BOX TESTon 02-25-2024 BOX TEST SENT OUT [facility] BOX1 [facility] BOX2 02/25/2024 [facility] Ql (U)o n 02-03-2024 Interpretation and review of laboratory results Abnormal [facility] Preg Test, Ur Positive Negative [facility] Rad - Ultrasound Reporton Rad - Ultrasound Report [id number]#1.00OTGTIF F Normal [facility] Urinalysis macro (dipstick) panel (U)on 02-03-2024 Bilirubin, UA Negative Negative - 4(70) +++ mg/dL [facility] Blood, UA Negative Negative - 50 Isaac/mcL [facility] Clarity, UA Clear [facility] Color, UA Yellow [facility] Glucose, UA Negative Negative - 1999(110) ++++ mg/dL [facility] Interpretation and review of laboratory results Abnormal [facility] Ketones, UA Negative Negative - 160(16) ++++ mg/dL [facility] Leukocytes, UA Negative Negative - 500+++ Shreya/mcL [facility] Nitrite, UA Negative Negative - Positive [facility] pH, UA 5.5 5 - 9 [facility] Protein, UA Positive Negative - 1999(20) ++++ mg/dL [facility] Comment on above: 100 Spec Grav, UA 1.03 1 - 1.03 [facility] Urobilinogen, UA 0.2 0.2 - 12 mg/dL [facility] Rad - Other Radiology Report on 01-07-2024 Rad - Other Radiology Report [id number]#1.00OTGTIFF [facility] Outside Recordson 12-14-2023 Outside Records [id number]#1.00OTGTIF F [facility] Outside Records [id number]#1.00OTGTIF F [facility] US liveron 10-07-2023 [facility] [place] [address] Ultrasound Report Signed Patient: Rosette Alba MR#: [id number] : 2000 Acct:[id number] Age/Sex: 23 / F ADM Date: 10/07/23 Loc: Room: Type: [facility] Attending Dr: Nataly BOND Ordering Provider: RONDA [...] Kirkland Jr., D.O.10/07/2023 11:25 AM Dictation Location: [place] [address] [facility] Transcribed By: ANDREY 10/07/23 1125 Dictated By: Richard Kirkland Jr, DO 10/07/23 1123 Signed By: 10/07/23 1125 Normal [facility] US thyroidon 10-07-2023 [place] [address] Ultrasound Report Signed Patient: Rosette Alba MR#: [id number] : 2000 Acct:[id number] Age/Sex: 23 / F ADM Date: 10/07/23 Loc: Room: Type: [facility] Attending Dr: Nataly BOND Ordering Provider: RONDA [...] Kirkland Jr., D.OIdania10/07/2023 11:26 AM Dictation Location: [place] [address] Tech: Marie Max Transcribed By: [facility] 10/07/23 1126 Dictated By: Richard Kirkland Jr, DO 10/07/23 1125 Signed By: 10/07/23 1126 Normal [facility] XR KUBon 10-07-2023 XR KUB [facility] Main [address] [address] XRay Report Signed Patient: Rosette Alba MR#: [id number] : 2000 Acct:[id number] Age/Sex: 23 / F ADM Date: 10/07/23 Loc: Room: Type: [facility] Attending Dr: Nataly BOND Copies to: RONDA [...] Kirkland Jr., D.OIdania10/07/2023 8:50 AM Dictation Location: [place] [address] Transcribed By: [facility] 10/07/23 0850 Dictated By: Richard Kirkland Jr, DO 10/07/23 0849 Signed By: 10/07/23 0850 Normal [facility] Bacteria [Presence] in Urine by AutomatedOrdered By: Carmelo Vinson on 10-04-2023 Bacteria Auto Ql (U) None seen [HPF] None Seen [facility] Bilirubin Test strip Ql (U)O rdered By: Carmelo Vinson on 10-04-2023 Bilirubin Ql (U) Negative Negative [facility] Color of Urine by AutoOrdere d By: Carmelo Vinson on 10-04-2023 Color (U) Yellow Normal Yellow [facility] Comment on above: Order Comment: Name Collection Type:: Clean-Voided Midstream Performed By: #### A DDONUAPLUS, UHCG #### [facility] [address] [place] [address] [place] Dipstick and Microscopicon 0 10-04-2023 Bacteria,Urine None Seen Normal None Seen [facility] Comment on above: Order Comment: Name Collection Type:: Clean-Voided Midstream Performed By: #### A DDONUAPLUS, UHCG #### [facility] [address] [place] [id number] [place] Bilirubin,Urine Negative Normal Negative [facility] Comment on above: Order Comment: Name Collection Type:: Clean-Voided Midstream Performed By: #### A DDONUAPLUS, UHCG #### [address] Glucose Ql (U) Normal Normal Normal [facility] Comment on above: Order Comment: Name Collection Type:: Clean-Voided Midstream Performed By: #### A DDONUAPLUS, UHCG #### [place] [address] [place] Hyaline Casts,Urine 0-8 Normal 0-8 [facility] Comment on above: Order Comment: Name Collection Type:: Clean-Voided Midstream Performed By: #### A DDONUAPLUS, UHCG #### [address] Mucus,Urine 4+ Critically abnormal [facility] Comment on above: Order Comment: Name Collection Type:: Clean-Voided Midstream Performed By: #### A DDONUAPLUS, UHCG #### [address] Nitrite,Urine Negative Normal Negative [facility] Comment on above: Order Comment: Name Collection Type:: Clean-Voided Midstream Performed By: #### A DDONUAPLUS, UHCG #### [address] Occult Blood,Urine Negative Normal Negative [facility] Comment on above: Order Comment: Name Collection Type:: Clean-Voided Midstream Performed By: #### A DDONUAPLUS, UHCG #### [address] RBC,Urine 1-2 Normal 0-4 [facility] Comment on above: Order Comment: Name Collection Type:: Clean-Voided Midstream Performed By: #### A DDONUAPLUS, UHCG #### [address] Specificy Dairy,Urine 1.039 High 1.001-1.03 0 [facility] Comment on above: Order Comment: Name Collection Type:: Clean-Voided Midstream Performed By: #### A DDONUAPLUS, UHCG #### [facility] [address] Squamous Epithelial Cell,Urine 5-9 High 0-2 [facility] Comment on above: Order Comment: Name Collection Type:: Clean-Voided Midstream Performed By: #### A DDONUAPLUS, UHCG #### [facility] [address] Urobilinogen,Urine 2 mg/dL High Normal [facility] Comment on above: Order Comment: Name Collection Type:: Clean-Voided Midstream Performed By: #### A DDONUAPLUS, UHCG #### [facility] [address] [place] [address] WBC,Urine 3-4 Normal 0-4 [facility] Comment on above: Order Comment: Name Collection Type:: Clean-Voided Midstream Performed By: #### A DDONUAPLUS, UHCG #### [address] Epithelial cells.squamous [# /area] in Urine sediment by Automated countOrdered By: Carmelo iVnson on 10-04-2023 Epithelial cells.squamous Auto (Urine sed) [#/Area] 5-9 [HPF] High 0-2 [facility] Erythrocytes [#/area] in Uri ne sediment by Automated countOrdered By: Carmelo Vinson on 10-04-2023 RBC Auto (Urine sed) [#/Area] 1-2 [HPF] 0-4 [facility] Glucose [Mass/volume] in Uri ne by Test stripOrdered By: Carmelo Vinson on 10-04-2023 Glucose Test strip (U) [Mass/Vol] Normal mg/dL Normal [facility] HCG ( test) IA.rapi d Ql (U)Ordered By: FRANCESCA NOE on 10-04-2023 HCG ( test) Ql (U) Negative [facility] HCG,Urineon 10-04-2023 Beta HCG ( test) Ql (U) Negative Normal [facility] Comment on above: Order Comment: Name Collection Type:: Clean-Voided Midstream Result Comment: PERF ORMED BY: [place] [address] PATHOLOGIST C4 PLANNER ALLA OROZCO M.D. Performed By: #### A [facility] #### [address] Hemoglobin Test strip Ql (U) Ordered By: Carmelo Vinson on 10-04-2023 Hemoglobin Ql (U) Negative Negative [facility] Hyaline casts [#/area] in Ur ine sediment by Automated countOrdered By: Carmelo Vinson on 10-04-2023 Hyaline casts Auto (Urine sed) [#/Area] 0-8 [LPF] 0-8 [facility] Ketones [Presence] in Urine by Test stripOrdered By: Carmelo Vinson on 10-04-2023 Ketones Ql (U) Trace High Negative [facility] Comment on above: Order Comment: Name Collection Type:: Clean-Voided Midstream Performed By: #### A [facility] #### [place] [address] [place] Leukocyte esterase [Presence ] in Urine by Test stripOrdered By: Carmelo Vinson on 10-04-2023 Leukocyte esterase Test strip Ql (U) Negative Normal Negative [facility] Comment on above: Order Comment: Name Collection Type:: Clean-Voided Midstream Performed By: #### A [facility] #### [place] [address] [place] Leukocytes [#/area] in Urine sediment by Automated countOrdered By: Carmelo Vinson on 10-04-2023 WBC Auto (Urine sed) [#/Area] 3-4 [HPF] 0-4 [facility] Mucus [Presence] in Urine by AutomatedOrdered By: Carmelo Vinson on 10-04-2023 Mucus Auto Ql (U) 4+ [LPF] Abnormal [facility] Nitrite Test strip Ql (U)Ord ered By: Carmelo Vinson on 10-04-2023 Nitrite Ql (U) Negative Negative [facility] Protein [Mass/volume] in Uri ne by Test stripOrdered By: Carmelo Vinson on 10-04-2023 Protein (U) [Mass/Vol] 30 mg/dL High Negative [facility] Comment on above: Order Comment: Name Collection Type:: Clean-Voided Midstream Performed By: #### A BROCK GARCIACG #### [address] Specific gravity Test strip (U) [Rel density]Ordered By: Carmelo Vinson on 10-04-2023 Specific gravity (U) [Rel density] 1.039 High 1.001-1.03 0 [facility] Urine appearanceOrdered By: Carmelo Vinson on 10-04-2023 Appearance (U) Clear Normal Clear [facility] Comment on above: Order Comment: Name Collection Type:: Clean-Voided Midstream Performed By: #### A BROCK GARCIACG #### [place] [address] [place] Urobilinogen Test strip (U) [Mass/Vol]Ordered By: Carmelo Vinson on 10-04-2023 Urobilinogen (U) [Mass/Vol] 2 mg/dL High Normal [facility] pH of Urine by Test stripOrd ered By: Carmelo Alisson on 10-04-2023 pH (U) 6.0 [pH] Normal 5.0-9.0 [facility] Comment on above: Order Comment: Name Collection Type:: Clean-Voided Midstream Performed By: #### A BROCK GARCIACG #### [place] [address] [place] Alanine aminotransferase [En zymatic activity/volume] in Serum or PlasmaOrdered By: Nataly Toure on 09-30-2023 ALT [Catalytic activity/Vol] 14 U/L Normal 7-52 [facility] Comment on above: Order Comment: Reaso n for Exam Adenopathy Reason for Exam Iron deficiency Reason for Exam Hypothyroidism, unspecified type Performed By: #### C USTB #### [place] [address] [place] Albumin [Mass/volume] in Ser um or Plasma by Bromocresol green (BCG) dye binding methoOrdered By: Nataly Toure on 09-30-2023 Albumin BCG dye [Mass/Vol] 4.2 g/dL 3.5-5.7 [facility] Alkaline phosphatase [Enzyma tic activity/volume] in Serum or PlasmaOrdered By: Nataly Toure on 09-30-2023 ALP [Catalytic activity/Vol] 80 U/L Normal 34-104 [facility] Comment on above: Order Comment: Reaso n for Exam Adenopathy Reason for Exam Iron deficiency Reason for Exam Hypothyroidism, unspecified type Performed By: #### C USTB #### [address] Aspartate aminotransferase [ Enzymatic activity/volume] in Serum or PlasmaOrdered By: Nataly Toure on 09-30-2023 AST [Catalytic activity/Vol] 10 U/L Low 13-39 [facility] Comment on above: Order Comment: Reaso n for Exam Adenopathy Reason for Exam Iron deficiency Reason for Exam Hypothyroidism, unspecified type Performed By: #### C USTB #### [address] Automated basophil %Ordered By: Nataly Toure on 09-30-2023 Basophils/100 WBC (Bld) 0.5 % Normal . [facility] Comment on above: Order Comment: Reaso n for Exam Adenopathy Performed By: #### C USTB #### [address] Automated basophil countOrde red By: Nataly Toure on 09-30-2023 Basophils (Bld) [#/Vol] 0.0 10*3/uL Normal 0.0-0.2 [facility] Comment on above: Order Comment: Reaso n for Exam Adenopathy Result Comment: PERF ORMED BY: [place] [address] PATHOLOGIST C4 PLANNER ALLA OROZCO M.D. Performed By: #### C USTB #### [address] Automated blood monocyte cou ntOrdered By: Nataly Jerniganc on 09-30-2023 Monocytes (Bld) [#/Vol] 0.7 10*3/uL Normal 0.0-0.8 [facility] Comment on above: Order Comment: Reaso n for Exam Adenopathy Performed By: #### C USTB #### [facility] [address] Automated eosinophil %Ordere d By: Nataly Jerniganc on 09-30-2023 Eosinophils/100 WBC (Bld) 0.4 % Normal . [facility] Comment on above: Order Comment: Reaso n for Exam Adenopathy Performed By: #### C USTB #### [address] Automated eosinophil countOr dered By: Nataly Jerniganc on 09-30-2023 Eosinophils (Bld) [#/Vol] 0.0 10*3/uL Normal 0.0-0.45 [facility] Comment on above: Order Comment: Reaso n for Exam Adenopathy Performed By: #### C USTB #### [address] Automated monocyte %Ordered By: Nataly Jerniganc on 09-30-2023 Monocytes/100 WBC (Bld) 8.0 % Normal . [facility] Comment on above: Order Comment: Reaso n for Exam Adenopathy Performed By: #### C USTB #### [facility] [address] [place] [address] Automated neutrophil %Ordere d By: Nataly Delonc on 09-30-2023 Neutrophils/100 WBC (Bld) 58.7 % Normal . [facility] Comment on above: Order Comment: Reaso n for Exam Adenopathy Performed By: #### C USTB #### [facility] [address] [place] [address] Bilirubin.total [Mass/volume ] in Serum or PlasmaOrdered By: Nataly Jerniganc on 09-30-2023 Bilirubin [Mass/Vol] 0.3 mg/dL Normal 0.3-1.0 [facility] Comment on above: Order Comment: Reaso n for Exam Adenopathy Reason for Exam Iron deficiency Reason for Exam Hypothyroidism, unspecified type Performed By: #### C USTB #### [facility] [address] Calcium [Mass/volume] in Ser um or PlasmaOrdered By: Nataly Toure on 09-30-2023 Calcium [Mass/Vol] 9.3 mg/dL Normal 8.6-10.3 [facility] Comment on above: Order Comment: Reaso n for Exam Adenopathy Reason for Exam Iron deficiency Reason for Exam Hypothyroidism, unspecified type Performed By: #### C USTB #### [facility] [address] Carbon dioxide, total [Moles /volume] in Serum or PlasmaOrdered By: Nataly Toure on 09-30-2023 CO2 [Moles/Vol] 29.9 mmol/L Normal 21.0-31.0 [facility] Comment on above: Order Comment: Reaso n for Exam Adenopathy Reason for Exam Iron deficiency Reason for Exam Hypothyroidism, unspecified type Performed By: #### C USTB #### [facility] [address] [place] [address] [place] Chloride [Moles/volume] in S rosa or PlasmaOrdered By: Nataly Toure on 09-30-2023 Chloride [Moles/Vol] 103 mmol/L Normal 98-107 [facility] Comment on above: Order Comment: Reaso n for Exam Adenopathy Reason for Exam Iron deficiency Reason for Exam Hypothyroidism, unspecified type Performed By: #### C USTB #### [facility] [address] Complete Blood Count Auto Di ffon 09-30-2023 Mean Corpuscular HGB Conc 33.2 g/dL Normal 32.0-35.0 [facility] Comment on above: Order Comment: Reaso n for Exam Adenopathy Performed By: #### C USTB #### [facility] [address] [place] [address] [place] NRBC% 0.1 /100{WBC} Normal 0-0.5 [facility] Comment on above: Order Comment: Reaso n for Exam Adenopathy Performed By: #### C USTB #### [address] Comprehensive Metabolic Pane marco 09-30-2023 Albumin [Mass/Vol] 4.2 g/dL Normal 3.5-5.7 [facility] Comment on above: Order Comment: Reaso n for Exam Adenopathy Reason for Exam Iron deficiency Reason for Exam Hypothyroidism, unspecified type Performed By: #### C USTB #### [address] GFR/1.73 sq M.predicted MDRD (S/P/Bld) [Vol rate/Area] mL/min/{1.73_m2} Normal [facility] Comment on above: Order Comment: Reaso n for Exam Adenopathy Reason for Exam Iron deficiency Reason for Exam Hypothyroidism, unspecified type Performed By: #### C USTB #### [address] Creatinine [Mass/volume] in Serum or PlasmaOrdered By: Nataly Toure on 09-30-2023 Creatinine [Mass/Vol] 0.73 mg/dL Normal 0.60-1.20 [facility] Comment on above: Order Comment: Reaso n for Exam Adenopathy Reason for Exam Iron deficiency Reason for Exam Hypothyroidism, unspecified type Performed By: #### C USTB #### [place] [id number] [facility] D-Dimer High Sensitivityon 0 09-30-2023 D-Dimer High Sensitivity < 200 Normal 0-243 [facility] Comment on above: [...] coagulation studies. Please contact the laboratory at [phone] for redraw instructions. PERFORMED BY: [place] [address] PATHOLOGIST C4 PLANNER ALLA OROZCO M.D. Performed By: #### G TT3 #### [address] Erythrocyte distribution wid th [Ratio] by Automated countOrdered By: Nataly Toure on 09-30-2023 Erythrocyte distribution width (RBC) [Ratio] 15.0 % Normal 11.9-15.3 [facility] Comment on above: Order Comment: Reaso n for Exam Adenopathy Performed By: #### C USTB #### [address] Erythrocytes [#/volume] in B lood by Automated countOrdered By: Nataly Toure on 09-30-2023 RBC (Bld) [#/Vol] 4.79 10*6/uL Normal 3.60-5.00 [facility] Comment on above: Order Comment: Reaso n for Exam Adenopathy Performed By: #### C USTB #### [address] Fibrin D-dimer [Presence] in Platelet poor plasma by Latex agglutinationOrdered By: Nataly Toure on 09-30-2023 Fibrin D-dimer LA Ql (PPP) < 200 ng/mL 0-243 [facility] Comment on above: The reference range [...] coagulation studies. Please contact the laboratory at [phone] for redraw instructions. Glucose [Mass/volume] in Ser um or PlasmaOrdered By: Nataly Toure on 09-30-2023 Glucose [Mass/Vol] 75 mg/dL Normal 70-100 [facility] Comment on above: ADA recommended refe rence rangeRandom Glucose Reference Range is dependent on time and content of last meal. Glucose of more than 200 mg/dL in a nonstressed, ambulatory subject supports the diagnosis of Diabetes Mellitus. Order Comment: Reaso n for Exam Adenopathy Reason for Exam Iron deficiency Reason for Exam Hypothyroidism, unspecified type Result Comment: [place] om Glucose Reference Range is dependent on time and content of last meal. Glucose of more than 200 mg/dL in a nonstressed, ambulatory subject supports the diagnosis of Diabetes Mellitus. ADA recommended reference range Performed By: #### C USTB #### [address] Hematocrit [Volume Fraction] of Blood by Automated countOrdered By: Nataly Toure on 09-30-2023 Hematocrit (Bld) [Volume fraction] 37.9 % Normal 34.0-46.4 [facility] Comment on above: Order Comment: Reaso n for Exam Adenopathy Performed By: #### C USTB #### [facility] [address] [place] [id number] [place] Hemoglobin [Mass/volume] in BloodOrdered By: Nataly Toure on 09-30-2023 Hemoglobin (Bld) [Mass/Vol] 12.6 g/dL Normal 11.8-15.4 [facility] Comment on above: Order Comment: Reaso n for Exam Adenopathy Performed By: #### C USTB #### [facility] [address] [place] [id number] [place] Iron [Mass/volume] in Serum or PlasmaOrdered By: Nataly Toure on 09-30-2023 Iron [Mass/Vol] 43 ug/dL Low 50-212 [facility] Comment on above: Order Comment: Reaso n for Exam Adenopathy Reason for Exam Iron deficiency Reason for Exam Hypothyroidism, unspecified type Performed By: #### G TT3 #### [facility] [address] Iron and TIBC Profileon 09-15 % Iron Saturation 10.6 % Low 20-50 [facility] Comment on above: Order Comment: Reaso n for Exam Adenopathy Reason for Exam Iron deficiency Reason for Exam Hypothyroidism, unspecified type Performed By: #### G TT3 #### [facility] [address] Total Iron Binding Capacity 406 ug/dL Normal 255-450 [facility] Comment on above: Order Comment: Reaso n for Exam Adenopathy Reason for Exam Iron deficiency Reason for Exam Hypothyroidism, unspecified type Performed By: #### G TT3 #### [facility] [address] Iron binding capacity [Mass/ volume] in Serum or PlasmaOrdered By: Nataly Toure on 09-30-2023 Iron binding capacity [Mass/Vol] 406 ug/dL 255-450 [facility] Iron saturation [Mass Fracti on] in Serum or PlasmaOrdered By: Nataly Toure on 09-30-2023 Iron saturation [Mass fraction] 10.6 % Low 20-50 [facility] Leukocytes [#/volume] correc kee for nucleated erythrocytes in Blood by Automated counOrdered By: Nataly Toure on 09-30-2023 WBC corrected for nucl RBC Auto (Bld) [#/Vol] 8.2 10*3/uL 3.8-11.6 [facility] Leukocytes [#/volume] in Blo od by Automated countOrdered By: Nataly Toure on 09-30-2023 WBC (Bld) [#/Vol] 8.2 10*3/uL Normal 3.8-11.6 [facility] Comment on above: Order Comment: Reaso n for Exam Adenopathy Performed By: #### C USTB #### [address] Lymphocytes [#/volume] in Bl ood by Automated countOrdered By: Nataly Toure on 09-30-2023 Lymphocytes (Bld) [#/Vol] 2.7 10*3/uL Normal 1.00-4.8 [facility] Comment on above: Order Comment: Reaso n for Exam Adenopathy Performed By: #### C USTB #### [address] Lymphocytes/100 leukocytes i n Blood by Automated countOrdered By: Nataly Toure on 09-30-2023 Lymphocytes/100 WBC (Bld) 32.4 % Normal . [facility] Comment on above: Order Comment: Reaso n for Exam Adenopathy Performed By: #### C USTB #### [address] MCH [Entitic mass] by Automa kee countOrdered By: Nataly Toure on 09-30-2023 MCH (RBC) [Entitic mass] 26.3 pg Normal 24.7-34.3 [facility] Comment on above: Order Comment: Reaso n for Exam Adenopathy Performed By: #### C USTB #### [address] MCHC Auto (RBC) [Mass/Vol]Or dered By: Nataly Toure on 09-30-2023 MCHC (RBC) [Mass/Vol] 33.2 g/dL 32.0-35.0 [facility] MCV [Entitic volume] by Auto mated countOrdered By: Nataly Jerniganc on 09-30-2023 MCV (RBC) [Entitic vol] 79.1 fL Low 80-100 [facility] Comment on above: Order Comment: Reaso n for Exam Adenopathy Performed By: #### C USTB #### [place] [address] [place] Neutrophils [#/volume] in Bl ood by Automated countOrdered By: Nataly Toure on 09-30-2023 Neutrophils (Bld) [#/Vol] 4.8 10*3/uL Normal 1.8-7.7 [facility] Comment on above: Order Comment: Reaso n for Exam Adenopathy Performed By: #### C USTB #### [facility] [address] No Panel InformationOrdered By: Nataly Toure on 09-30-2023 Estimated GFR (CKD-EPI) > 60.0 mL/Min [facility] Creatinine Clearance (Chem N/A [facility] Nucleated erythrocytes [Pres ence] in Blood by Automated countOrdered By: Nataly Toure on 09-30-2023 Nucleated RBC Auto Ql (Bld) 0.1 /100{WBC} 0-0.5 [facility] Platelet mean volume [Entiti c volume] in Blood by Automated countOrdered By: Nataly Toure on 09-30-2023 Platelet mean volume (Bld) [Entitic vol] 9.2 fL Normal 6.3-10.7 [facility] Comment on above: Order Comment: Reaso n for Exam Adenopathy Performed By: #### C USTB #### [address] Platelets [#/volume] in Bloo d by Automated countOrdered By: Nataly Toure on 09-30-2023 Platelets (Bld) [#/Vol] 246 10*3/uL Normal 150-450 [facility] Comment on above: Order Comment: Reaso n for Exam Adenopathy Performed By: #### C USTB #### [place] [address] [place] Potassium [Moles/volume] in Serum or PlasmaOrdered By: Nataly Toure on 09-30-2023 Potassium [Moles/Vol] 3.9 mmol/L Normal 3.5-5.1 [facility] Comment on above: Order Comment: Reaso n for Exam Adenopathy Reason for Exam Iron deficiency Reason for Exam Hypothyroidism, unspecified type Performed By: #### C USTB #### [place] [address] [place] Protein [Mass/volume] in Ser um or PlasmaOrdered By: Nataly Toure on 09-30-2023 Protein [Mass/Vol] 7.0 g/dL Normal 6.4-8.9 [facility] Comment on above: Order Comment: Reaso n for Exam Adenopathy Reason for Exam Iron deficiency Reason for Exam Hypothyroidism, unspecified type Performed By: #### C USTB #### [facility] [address] [place] [address] Serum globulin measurement b y calculation (mass/volume)Ordered By: Nataly Toure on 09-30-2023 Globulin (S) [Mass/Vol] 2.8 g/dL Normal [facility] Comment on above: Order Comment: Reaso n for Exam Adenopathy Reason for Exam Iron deficiency Reason for Exam Hypothyroidism, unspecified type Performed By: #### C USTB #### [facility] [address] [place] [address] Serum or plasma albumin/glob ulin mass ratioOrdered By: Nataly Toure on 09-30-2023 Albumin/Globulin [Mass ratio] 1.5 {ratio} Normal [facility] Comment on above: Order Comment: Reaso n for Exam Adenopathy Reason for Exam Iron deficiency Reason for Exam Hypothyroidism, unspecified type Performed By: #### C USTB #### [facility] [address] [place] [address] Serum or plasma anion gap de terminationOrdered By: Nataly Toure on 09-30-2023 Anion gap [Moles/Vol] 11.0 mmol/L Normal 6.0-15.0 [facility] Comment on above: Order Comment: Reaso n for Exam Adenopathy Reason for Exam Iron deficiency Reason for Exam Hypothyroidism, unspecified type Performed By: #### C USTB #### [facility] [address] [place] [address] [place] Sodium [Moles/volume] in Ser um or PlasmaOrdered By: Nataly Toure on 09-30-2023 Sodium [Moles/Vol] 140 mmol/L Normal 136-145 [facility] Comment on above: Order Comment: Reaso n for Exam Adenopathy Reason for Exam Iron deficiency Reason for Exam Hypothyroidism, unspecified type Performed By: #### C USTB #### [facility] [address] [place] [address] Thyroid Stim Hormone w/Rflxo n 09-30-2023 Thyroid Stim Hormone w/Rflx 4.99 u[iU]/mL Normal 0.45-5.33 [facility] Comment on above: Order Comment: Reaso n for Exam Adenopathy Reason for Exam Iron deficiency Reason for Exam Hypothyroidism, unspecified type Result Comment: PERF ORMED BY: [place] [address] PATHOLOGIST C4 PLANNER ALLA OROZCO M.D. Performed By: #### G TT3 #### [address] Thyrotropin [Units/volume] i n Serum or PlasmaOrdered By: Nataly Toure on 09-30-2023 TSH Qn 4.99 m[IU]/L 0.45-5.33 [facility] Transferrin [Mass/volume] in Serum or PlasmaOrdered By: Nataly Toure on 09-30-2023 Transferrin [Mass/Vol] 290 mg/dL Normal 203-362 [facility] Comment on above: Order Comment: Reaso n for Exam Adenopathy Reason for Exam Iron deficiency Reason for Exam Hypothyroidism, unspecified type Performed By: #### G TT3 #### [address] Urea nitrogen [Mass/volume] in Serum or PlasmaOrdered By: Nataly Toure on 09-30-2023 Urea nitrogen [Mass/Vol] 23 mg/dL Normal 7-25 [facility] Comment on above: Order Comment: Reaso n for Exam Adenopathy Reason for Exam Iron deficiency Reason for Exam Hypothyroidism, unspecified type Performed By: #### C USTB #### [address] lumbar spine wo conon CT lumbar spine wo con [facility] [place] [address] [place] [address] CT Scan Report Signed Patient: Rosette Alba MR#: [id number] : 2000 Acct:[id number] Age/Sex: 23 / F ADM Date: 09/26/23 Loc: ER Room: Type: [facility] ER Attending Dr: Copies to: Devon [...] Deborah Vazquez M.D.09/27/2023 8:13 AM Dictation Location: [place] [address] Transcribed By: [facility] 09/27/23812 Dictated By: Deborah Vazquez MD 09/27/23803 Signed By: 08/12/24 0813 Normal [facility] Bacteria [Presence] in Urine by AutomatedOrdered By: Devon Leon on 09-26-2023 Bacteria Auto Ql (U) Rare [HPF] None Seen [facility] Bilirubin Test strip Ql (U)O rdered By: Devon Leon on 09-26-2023 Bilirubin Ql (U) Negative Negative [facility] Color of Urine by AutoOrdere d By: Devon Leon on 09-26-2023 Color (U) Light-yellow Normal Yellow [facility] Comment on above: Order Comment: Name Collection Type:: Clean-Voided Midstream Performed By: #### A DDONUAPLUS, CUU #### [facility] [address] [place] [address] [place] Dipstick and Microscopicon 0 09-26-2023 Bacteria,Urine Rare Normal None Seen [facility] Comment on above: Order Comment: Name Collection Type:: Clean-Voided Midstream Performed By: #### A DDONUAPLUS, CUU #### [facility] [address] [place] [address] [place] Bilirubin,Urine Negative Normal Negative [facility] Comment on above: Order Comment: Name Collection Type:: Clean-Voided Midstream Performed By: #### A DDONUAPLUS, CUU #### [facility] [address] [place] [id number] [place] Glucose Ql (U) Normal Normal Normal [facility] Comment on above: Order Comment: Name Collection Type:: Clean-Voided Midstream Performed By: #### A DDONUAPLUS, CUU #### [facility] [address] [place] [address] [place] Hyaline Casts,Urine None Normal 0-8 [facility] Comment on above: Order Comment: Name Collection Type:: Clean-Voided Midstream Performed By: #### A DDONUAPLUS, CUU #### [facility] [address] [place] [address] [place] Mucus,Urine 2+ Critically abnormal [facility] Comment on above: Order Comment: Name Collection Type:: Clean-Voided Midstream Performed By: #### A DDONUAPLUS, CUU #### [place] [address] [place] Nitrite,Urine Negative Normal Negative [facility] Comment on above: Order Comment: Name Collection Type:: Clean-Voided Midstream Performed By: #### A DDONUAPLUS, CUU #### [place] [address] [place] Occult Blood,Urine 2+ High Negative [facility] Comment on above: Order Comment: Name Collection Type:: Clean-Voided Midstream Result Comment: PERF ORMED BY: [place] [address] PATHOLOGIST C4 PLANNER ALLA OROZCO M.D. Performed By: #### A DDONUAPLUS, CUU #### [place] [address] [place] Protein,Urine Trace High Negative [facility] Comment on above: Order Comment: Name Collection Type:: Clean-Voided Midstream Performed By: #### A DDONUAPLUS, CUU #### [place] [address] [place] RBC,Urine 3-4 Normal 0-4 [facility] Comment on above: Order Comment: Name Collection Type:: Clean-Voided Midstream Performed By: #### A DDONUAPLUS, CUU #### [place] [address] [place] Specificy Dairy,Urine 1.030 Normal 1.001-1.03 0 [facility] Comment on above: Order Comment: Name Collection Type:: Clean-Voided Midstream Performed By: #### A DDONUAPLUS, CUU #### [place] [address] [place] Sperm,Urine 5-9 High 0-2 [facility] Comment on above: Order Comment: Name Collection Type:: Clean-Voided Midstream Result Comment: PERF ORMED BY: [place] [address] PATHOLOGIST C4 PLANNER ALLA OROZCO M.D. Performed By: #### A DDONUAPLUS, CUU #### [place] [address] Squamous Epithelial Cell,Urine 5-9 High 0-2 [facility] Comment on above: Order Comment: Name Collection Type:: Clean-Voided Midstream Performed By: #### A DDONUAPLUS, CUU #### [facility] [address] Urobilinogen,Urine Normal Normal Normal [facility] Comment on above: Order Comment: Name Collection Type:: Clean-Voided Midstream Performed By: #### A DDONUAPLUS, CUU #### [facility] [address] WBC,Urine 5-9 High 0-4 [facility] Comment on above: Order Comment: Name Collection Type:: Clean-Voided Midstream Performed By: #### A DDONUAPLUS, CUU #### [facility] [address] [place] [address] Epithelial cells.squamous [# /area] in Urine sediment by Automated countOrdered By: Devon Leon on 09-26-2023 Epithelial cells.squamous Auto (Urine sed) [#/Area] 5-9 [HPF] High 0-2 [facility] Erythrocytes [#/area] in Uri ne sediment by Automated countOrdered By: Devon Leon on 09-26-2023 RBC Auto (Urine sed) [#/Area] 3-4 [HPF] 0-4 [facility] Glucose [Mass/volume] in Uri ne by Test stripOrdered By: Devon Leon on 09-26-2023 Glucose Test strip (U) [Mass/Vol] Normal mg/dL Normal [facility] Hemoglobin Test strip Ql (U) Ordered By: Devon Leon on 09-26-2023 Hemoglobin Ql (U) 2+ High Negative [facility] Hyaline casts [#/area] in Ur ine sediment by Automated countOrdered By: Devon Leon on 09-26-2023 Hyaline casts Auto (Urine sed) [#/Area] None [LPF] 0-8 [facility] Ketones [Presence] in Urine by Test stripOrdered By: Devon Leon on 09-26-2023 Ketones Ql (U) Negative Normal Negative [facility] Comment on above: Order Comment: Name Collection Type:: Clean-Voided Midstream Performed By: #### A DDONUAPLUS, CUU #### [facility] [address] [place] [address] [place] Leukocyte esterase [Presence ] in Urine by Test stripOrdered By: Devon Leon on 09-26-2023 Leukocyte esterase Test strip Ql (U) 2+ High Negative [facility] Comment on above: Order Comment: Name Collection Type:: Clean-Voided Midstream Performed By: #### A DDONUAPLUS, CUU #### [facility] [address] [place] [address] [place] Leukocytes [#/area] in Urine sediment by Automated countOrdered By: Devon Leon on 09-26-2023 WBC Auto (Urine sed) [#/Area] 5-9 [HPF] High 0-4 [facility] Mucus [Presence] in Urine by AutomatedOrdered By: Devon Leon on 09-26-2023 Mucus Auto Ql (U) 2+ [LPF] Abnormal [facility] Nitrite Test strip Ql (U)Ord ered By: Devon Leon on 09-26-2023 Nitrite Ql (U) Negative Negative [facility] Protein Test strip (U) [Mass /Vol]Ordered By: Devon Leon on 09-26-2023 Protein (U) [Mass/Vol] Trace mg/dL High Negative F [facility] Specific gravity Test strip (U) [Rel density]Ordered By: Devon Leon on 09-26-2023 Specific gravity (U) [Rel density] 1.030 1.001-1.03 0 [facility] S[place]mat[place] [#/area] in Urin e sediment by Automated countOrdered By: Devon Leon on 09-26-2023 [place] Auto (Urine sed) [#/Area] 5-9 [HPF] High 0-2 [facility] Urine Cultureon 09-26-2023 Bacteria identified Cx Nom (U) ORGANISM: Strep agalactiae - (group b) (O:STRAGA) [place] Count 75,000 PERFORMED BY: [place] [address] PATHOLOGIST C4 PLANNER ALLA OROZCO M.D. Normal [facility] Comment on above: Performed By: #### A JOSE, CUU #### [address] Urine appearanceOrdered By: Devon Leon on 09-26-2023 Appearance (U) Clear Normal Clear [facility] Comment on above: Order Comment: Name Collection Type:: Clean-Voided Midstream Performed By: #### A JOSE, CUU #### [address] Urine culture routineOrdered By: Devon Leon on 09-26-2023 Bacteria identified Cx Nom (U) Strep agalactiae - (group b) Abnormal [facility] Urobilinogen Test strip (U) [Mass/Vol]Ordered By: Devon Leon on 09-26-2023 Urobilinogen (U) [Mass/Vol] Normal mg/dL Normal [facility] pH of Urine by Test stripOrd ered By: Devon Leon on 09-26-2023 pH (U) 6.0 [pH] Normal 5.0-9.0 [facility] Comment on above: Order Comment: Name Collection Type:: Clean-Voided Midstream Performed By: #### A JOSE, CUU #### [address] Alanine aminotransferase [En zymatic activity/volume] in Serum or PlasmaOrdered By: Nataly Toure on 08-03-2023 ALT [Catalytic activity/Vol] 14 U/L Normal 7-52 [facility] Comment on above: Order Comment: Reaso n for Exam Hypothyroidism, unspecified type;High blood triglycerides Reason for Exam Iron deficiency Reason for Exam High blood triglycerides Reason for Exam Hypothyroidism, unspecified type Performed By: #### G TT3 #### [place] [address] [place] Albumin [Mass/volume] in Ser um or Plasma by Bromocresol green (BCG) dye binding methoOrdered By: Nataly Toure on 08-03-2023 Albumin BCG dye [Mass/Vol] 4.4 g/dL 3.5-5.7 [facility] Alkaline phosphatase [Enzyma tic activity/volume] in Serum or PlasmaOrdered By: Nataly Toure on 08-03-2023 ALP [Catalytic activity/Vol] 85 U/L Normal 34-104 [facility] Comment on above: Order Comment: Reaso n for Exam Hypothyroidism, unspecified type;High blood triglycerides Reason for Exam Iron deficiency Reason for Exam High blood triglycerides Reason for Exam Hypothyroidism, unspecified type Performed By: #### G TT3 #### [facility] [address] Aspartate aminotransferase [ Enzymatic activity/volume] in Serum or PlasmaOrdered By: Nataly Toure on 08-03-2023 AST [Catalytic activity/Vol] 13 U/L Normal 13-39 [facility] Comment on above: Order Comment: Reaso n for Exam Hypothyroidism, unspecified type;High blood triglycerides Reason for Exam Iron deficiency Reason for Exam High blood triglycerides Reason for Exam Hypothyroidism, unspecified type Performed By: #### G TT3 #### [address] Automated basophil %Ordered By: Nataly Toure on 08-03-2023 Basophils/100 WBC (Bld) 0.4 % Normal . [facility] Comment on above: Order Comment: Reaso n for Exam Iron deficiency Performed By: #### G TT3 #### [facility] [address] [place] [address] Automated basophil countOrde red By: Nataly Toure on 08-03-2023 Basophils (Bld) [#/Vol] 0.0 10*3/uL Normal 0.0-0.2 [facility] Comment on above: Order Comment: Reaso n for Exam Iron deficiency Result Comment: PERF ORMED BY: [place] [address] PATHOLOGIST C4 PLANNER ALLA OROZCO M.D. Performed By: #### G TT3 #### [address] Automated blood monocyte cou ntOrdered By: Nataly Toure on 08-03-2023 Monocytes (Bld) [#/Vol] 0.4 10*3/uL Normal 0.0-0.8 [facility] Comment on above: Order Comment: Reaso n for Exam Iron deficiency Performed By: #### G TT3 #### [facility] [address] Automated eosinophil %Ordere d By: Nataly Toure on 08-03-2023 Eosinophils/100 WBC (Bld) 0.5 % Normal . [facility] Comment on above: Order Comment: Reaso n for Exam Iron deficiency Performed By: #### G TT3 #### [facility] [address] [place] [address] Automated eosinophil countOr dered By: Nataly Toure on 08-03-2023 Eosinophils (Bld) [#/Vol] 0.0 10*3/uL Normal 0.0-0.45 [facility] Comment on above: Order Comment: Reaso n for Exam Iron deficiency Performed By: #### G TT3 #### [address] Automated monocyte %Ordered By: Nataly Toure on 08-03-2023 Monocytes/100 WBC (Bld) 5.4 % Normal . [facility] Comment on above: Order Comment: Reaso n for Exam Iron deficiency Performed By: #### G TT3 #### [facility] [address] [place] [address] Automated neutrophil %Ordere d By: Nataly Toure on 08-03-2023 Neutrophils/100 WBC (Bld) 70.9 % Normal . [facility] Comment on above: Order Comment: Reaso n for Exam Iron deficiency Performed By: #### G TT3 #### [facility] [address] [place] [address] Bilirubin.total [Mass/volume ] in Serum or PlasmaOrdered By: Nataly Toure on 08-03-2023 Bilirubin [Mass/Vol] 0.5 mg/dL Normal 0.3-1.0 [facility] Comment on above: Order Comment: Reaso n for Exam Hypothyroidism, unspecified type;High blood triglycerides Reason for Exam Iron deficiency Reason for Exam High blood triglycerides Reason for Exam Hypothyroidism, unspecified type Performed By: #### G TT3 #### [facility] [address] [place] [address] [place] Calcium [Mass/volume] in Ser um or PlasmaOrdered By: Nataly Toure on 08-03-2023 Calcium [Mass/Vol] 9.5 mg/dL Normal 8.6-10.3 [facility] Comment on above: Order Comment: Reaso n for Exam Hypothyroidism, unspecified type;High blood triglycerides Reason for Exam Iron deficiency Reason for Exam High blood triglycerides Reason for Exam Hypothyroidism, unspecified type Performed By: #### G TT3 #### [facility] [address] [place] [id number] [facility] Carbon dioxide, total [Moles /volume] in Serum or PlasmaOrdered By: Nataly Toure on 08-03-2023 CO2 [Moles/Vol] 27.2 mmol/L Normal 21.0-31.0 [facility] Comment on above: Order Comment: Reaso n for Exam Hypothyroidism, unspecified type;High blood triglycerides Reason for Exam Iron deficiency Reason for Exam High blood triglycerides Reason for Exam Hypothyroidism, unspecified type Performed By: #### G TT3 #### [facility] [address] [place] [id number] [place] Chloride [Moles/volume] in S rosa or PlasmaOrdered By: Nataly Toure on 08-03-2023 Chloride [Moles/Vol] 105 mmol/L Normal 98-107 [facility] Comment on above: Order Comment: Reaso n for Exam Hypothyroidism, unspecified type;High blood triglycerides Reason for Exam Iron deficiency Reason for Exam High blood triglycerides Reason for Exam Hypothyroidism, unspecified type Performed By: #### G TT3 #### [facility] [address] [place] [id number] [place] Cholesterol [Mass/volume] in Serum or PlasmaOrdered By: Nataly Toure on 08-03-2023 Cholesterol [Mass/Vol] 159 mg/dL Normal 140-200 [facility] Comment on above: Chol less than [...] risk Performed By: #### G TT3 #### [address] Cholesterol in LDL Calc [Mas s/Vol]Ordered By: Nataly Toure on 08-03-2023 Cholesterol in LDL [Mass/Vol] 82 mg/dL 0-100 [facility] Comment on above: LDL ATP III CLASSIFI CATIONLDL less than 100 mg/dL OptimalLDL 100-129 mg/dL Near or above optimalLDL 130-159 mg/dL Borderline highLDL 160-189 mg/dL HighLDL greater than 189 mg/dL Very high Cholesterol in VLDL Calc [Ma ss/Vol]Ordered By: Nataly Toure on 08-03-2023 Cholesterol in VLDL [Mass/Vol] 28 mg/dL [facility] Complete Blood Count Auto Di ffon 08-03-2023 Mean Corpuscular HGB Conc 33.1 g/dL Normal 32.0-35.0 [facility] Comment on above: Order Comment: Reaso n for Exam Iron deficiency Performed By: #### G TT3 #### [address] NRBC% 0.2 /100{WBC} Normal 0-0.5 [facility] Comment on above: Order Comment: Reaso n for Exam Iron deficiency Performed By: #### G TT3 #### [facility] [address] [place] [address] Comprehensive Metabolic Pane marco 08-03-2023 Albumin [Mass/Vol] 4.4 g/dL Normal 3.5-5.7 [facility] Comment on above: Order Comment: Reaso n for Exam Hypothyroidism, unspecified type;High blood triglycerides Reason for Exam Iron deficiency Reason for Exam High blood triglycerides Reason for Exam Hypothyroidism, unspecified type Performed By: #### G TT3 #### [place] [address] [place] GFR/1.73 sq M.predicted MDRD (S/P/Bld) [Vol rate/Area] mL/min/{1.73_m2} Normal [facility] Comment on above: Order Comment: Reaso n for Exam Hypothyroidism, unspecified type;High blood triglycerides Reason for Exam Iron deficiency Reason for Exam High blood triglycerides Reason for Exam Hypothyroidism, unspecified type Performed By: #### G TT3 #### [facility] [address] [place] [address] [place] Creatinine [Mass/volume] in Serum or PlasmaOrdered By: Nataly Toure on 08-03-2023 Creatinine [Mass/Vol] 0.78 mg/dL Normal 0.60-1.20 [facility] Comment on above: Order Comment: Reaso n for Exam Hypothyroidism, unspecified type;High blood triglycerides Reason for Exam Iron deficiency Reason for Exam High blood triglycerides Reason for Exam Hypothyroidism, unspecified type Performed By: #### G TT3 #### [place] [address] [place] Erythrocyte distribution wid th [Ratio] by Automated countOrdered By: Nataly Toure on 08-03-2023 Erythrocyte distribution width (RBC) [Ratio] 14.3 % Normal 11.9-15.3 [facility] Comment on above: Order Comment: Reaso n for Exam Iron deficiency Performed By: #### G TT3 #### [place] [address] [place] Erythrocytes [#/volume] in B lood by Automated countOrdered By: Nataly Toure on 08-03-2023 RBC (Bld) [#/Vol] 4.72 10*6/uL Normal 3.60-5.00 [facility] Comment on above: Order Comment: Reaso n for Exam Iron deficiency Performed By: #### G TT3 #### [place] [address] [place] Glucose [Mass/volume] in Ser um or PlasmaOrdered By: Nataly Toure on 08-03-2023 Glucose [Mass/Vol] 82 mg/dL Normal 70-100 [facility] Comment on above: ADA recommended refe rence [...] for Exam Hypothyroidism, unspecified type Result Comment: [facility] Glucose Reference Range is dependent on time and content of last meal. Glucose of more than 200 mg/dL in a nonstressed, ambulatory subject supports the diagnosis of Diabetes Mellitus. ADA recommended reference range Performed By: #### G TT3 #### [address] Hematocrit [Volume Fraction] of Blood by Automated countOrdered By: Nataly Toure on 08-03-2023 Hematocrit (Bld) [Volume fraction] 36.8 % Normal 34.0-46.4 [facility] Comment on above: Order Comment: Reaso n for Exam Iron deficiency Performed By: #### G TT3 #### [address] Hemoglobin [Mass/volume] in BloodOrdered By: Nataly Toure on 08-03-2023 Hemoglobin (Bld) [Mass/Vol] 12.2 g/dL Normal 11.8-15.4 [facility] Comment on above: Order Comment: Reaso n for Exam Iron deficiency Performed By: #### G TT3 #### [address] Insulinon 08-03-2023 Insulin 14.1 u[iU]/mL Normal 2.6-24.9 [facility] Comment on above: Order Comment: Name Collection Type:: Clean-Voided Midstream Result Comment: Perf ormed at: - [facility] [address] [id number] Human Resources Team Member: Sam Lopez PhD, Phone: [phone] PERFORMED BY: [place] [address] PATHOLOGIST C4 PLANNER ALLA OROZCO M.D. Performed By: #### [facility] #### [address] [place] [address] [place] Iron [Mass/volume] in Serum or PlasmaOrdered By: Nataly Toure on 08-03-2023 Iron [Mass/Vol] 43 ug/dL Low 50-212 [facility] Comment on above: Order Comment: Reaso n for Exam Hypothyroidism, unspecified type;High blood triglycerides Reason for Exam Iron deficiency Reason for Exam High blood triglycerides Reason for Exam Hypothyroidism, unspecified type Performed By: #### G TT3 #### [facility] [address] [place] [address] Iron and TIBC Profileon 07-16 % Iron Saturation 11.3 % Low 20-50 [facility] Comment on above: Order Comment: Reaso n for Exam Hypothyroidism, unspecified type;High blood triglycerides Reason for Exam Iron deficiency Reason for Exam High blood triglycerides Reason for Exam Hypothyroidism, unspecified type Performed By: #### G TT3 #### [facility] [address] [place] [address] Total Iron Binding Capacity 382 ug/dL Normal 255-450 [facility] Comment on above: Order Comment: Reaso n for Exam Hypothyroidism, unspecified type;High blood triglycerides Reason for Exam Iron deficiency Reason for Exam High blood triglycerides Reason for Exam Hypothyroidism, unspecified type Performed By: #### G TT3 #### [facility] [address] [place] [address] Iron binding capacity [Mass/ volume] in Serum or PlasmaOrdered By: Nataly Toure on 08-03-2023 Iron binding capacity [Mass/Vol] 382 ug/dL 255-450 [facility] Iron saturation [Mass Fracti on] in Serum or PlasmaOrdered By: Nataly Toure on 08-03-2023 Iron saturation [Mass fraction] 11.3 % Low 20-50 [facility] Leukocytes [#/volume] correc kee for nucleated erythrocytes in Blood by Automated counOrdered By: Nataly Toure on 08-03-2023 WBC corrected for nucl RBC Auto (Bld) [#/Vol] 7.2 10*3/uL 3.8-11.6 [facility] Leukocytes [#/volume] in Blo od by Automated countOrdered By: Nataly Toure on 08-03-2023 WBC (Bld) [#/Vol] 7.2 10*3/uL Normal 3.8-11.6 [facility] Comment on above: Order Comment: Reaso n for Exam Iron deficiency Performed By: #### G TT3 #### [facility] [address] [place] [id number] [facility] Lipid Panelon 08-03-2023 LDL Cholesterol,Calculated 82 mg/dL Normal 0-100 [facility] Comment on above: [...] high Performed By: #### G TT3 #### [address] Triglyceride w/Reflex 140 mg/dL Normal 0-149 [facility] Comment on above: [...] method. Performed By: #### G TT3 #### [facility] [address] VLDL CHOLESTEROL 28 mg/dL Normal [facility] Comment on above: Order Comment: Reaso n for Exam Hypothyroidism, unspecified type;High blood triglycerides Reason for Exam Iron deficiency Reason for Exam High blood triglycerides Reason for Exam Hypothyroidism, unspecified type Performed By: #### G TT3 #### [place] [id number] [facility] Lymphocytes [#/volume] in Bl ood by Automated countOrdered By: Ntaaly Toure on 08-03-2023 Lymphocytes (Bld) [#/Vol] 1.6 10*3/uL Normal 1.00-4.8 [facility] Comment on above: Order Comment: Reaso n for Exam Iron deficiency Performed By: #### G TT3 #### [address] Lymphocytes/100 leukocytes i n Blood by Automated countOrdered By: Nataly Toure on 08-03-2023 Lymphocytes/100 WBC (Bld) 22.8 % Normal . [facility] Comment on above: Order Comment: Reaso n for Exam Iron deficiency Performed By: #### G TT3 #### [address] MCH [Entitic mass] by Automa kee countOrdered By: Nataly Toure on 08-03-2023 MCH (RBC) [Entitic mass] 25.8 pg Normal 24.7-34.3 [facility] Comment on above: Order Comment: Reaso n for Exam Iron deficiency Performed By: #### G TT3 #### [address] MCHC Auto (RBC) [Mass/Vol]Or dered By: Nataly Toure on 08-03-2023 MCHC (RBC) [Mass/Vol] 33.1 g/dL 32.0-35.0 [facility] MCV [Entitic volume] by Auto mated countOrdered By: Nataly Toure on 08-03-2023 MCV (RBC) [Entitic vol] 78.0 fL Low 80-100 [facility] Comment on above: Order Comment: Reaso n for Exam Iron deficiency Performed By: #### G TT3 #### [place] [address] [place] Neutrophils [#/volume] in Bl ood by Automated countOrdered By: Nataly Toure on 08-03-2023 Neutrophils (Bld) [#/Vol] 5.1 10*3/uL Normal 1.8-7.7 [facility] Comment on above: Order Comment: Reaso n for Exam Iron deficiency Performed By: #### G TT3 #### [address] [place] [address] [place] No Panel InformationOrdered By: Nataly Toure on 08-03-2023 Estimated GFR (CKD-EPI) > 60.0 mL/Min [facility] Creatinine Clearance (Chem N/A [facility] Nucleated erythrocytes [Pres ence] in Blood by Automated countOrdered By: Nataly Toure on 08-03-2023 Nucleated RBC Auto Ql (Bld) 0.2 /100{WBC} 0-0.5 [facility] Platelet mean volume [Entiti c volume] in Blood by Automated countOrdered By: Nataly Toure on 08-03-2023 Platelet mean volume (Bld) [Entitic vol] 9.2 fL Normal 6.3-10.7 [facility] Comment on above: Order Comment: Reaso n for Exam Iron deficiency Performed By: #### G TT3 #### [facility] [address] [place] [address] [place] Platelets [#/volume] in Bloo d by Automated countOrdered By: Nataly Toure on 08-03-2023 Platelets (Bld) [#/Vol] 260 10*3/uL Normal 150-450 [facility] Comment on above: Order Comment: Reaso n for Exam Iron deficiency Performed By: #### G TT3 #### [place] [address] [place] Potassium [Moles/volume] in Serum or PlasmaOrdered By: Nataly Toure on 08-03-2023 Potassium [Moles/Vol] 3.6 mmol/L Normal 3.5-5.1 [facility] Comment on above: Order Comment: Reaso n for Exam Hypothyroidism, unspecified type;High blood triglycerides Reason for Exam Iron deficiency Reason for Exam High blood triglycerides Reason for Exam Hypothyroidism, unspecified type Performed By: #### G TT3 #### [facility] [address] [place] [address] [place] Protein [Mass/volume] in Ser um or PlasmaOrdered By: Nataly Toure on 08-03-2023 Protein [Mass/Vol] 7.2 g/dL Normal 6.4-8.9 [facility] Comment on above: Order Comment: Reaso n for Exam Hypothyroidism, unspecified type;High blood triglycerides Reason for Exam Iron deficiency Reason for Exam High blood triglycerides Reason for Exam Hypothyroidism, unspecified type Performed By: #### G TT3 #### [facility] [address] Serum globulin measurement b y calculation (mass/volume)Ordered By: Nataly Toure on 08-03-2023 Globulin (S) [Mass/Vol] 2.8 g/dL Normal [facility] Comment on above: Order Comment: Reaso n for Exam Hypothyroidism, unspecified type;High blood triglycerides Reason for Exam Iron deficiency Reason for Exam High blood triglycerides Reason for Exam Hypothyroidism, unspecified type Performed By: #### G TT3 #### [facility] [address] [place] [address] Serum or plasma albumin/glob ulin mass ratioOrdered By: Nataly Toure on 08-03-2023 Albumin/Globulin [Mass ratio] 1.6 {ratio} Normal [facility] Comment on above: Order Comment: Reaso n for Exam Hypothyroidism, unspecified type;High blood triglycerides Reason for Exam Iron deficiency Reason for Exam High blood triglycerides Reason for Exam Hypothyroidism, unspecified type Performed By: #### G TT3 #### [facility] [address] [place] [address] Serum or plasma anion gap de terminationOrdered By: Nataly Toure on 08-03-2023 Anion gap [Moles/Vol] 11.4 mmol/L Normal 6.0-15.0 [facility] Comment on above: Order Comment: Reaso n for Exam Hypothyroidism, unspecified type;High blood triglycerides Reason for Exam Iron deficiency Reason for Exam High blood triglycerides Reason for Exam Hypothyroidism, unspecified type Performed By: #### G TT3 #### [facility] [address] Serum or plasma high density lipoprotein (HDL) cholesterol measurementOrdered By: Nataly Toure on 08-03-2023 Cholesterol in HDL [Mass/Vol] 49 mg/dL Normal 23-92 [facility] Comment on above: HDL CHOL ATP-III [...] HIGH Performed By: #### G TT3 #### [facility] [address] Serum or plasma insulin nikita urement (units/volume)Ordered By: Nataly Toure on 08-03-2023 Insulin Qn 14.1 u[iU]/mL 2.6-24.9 [facility] Comment on above: Performed at: [place] [id number] Director: Sam Lopez PhD, Phone: [phone] Serum or plasma total choles terol/high density lipoprotein (HDL) cholesterol mass ratOrdered By: Nataly Toure on 08-03-2023 Cholesterol.total/Chol esterol in HDL [Mass ratio] 3.2 {ratio} Normal <5.0 [facility] Comment on above: Order Comment: Reaso n for Exam Hypothyroidism, unspecified type;High blood triglycerides Reason for Exam Iron deficiency Reason for Exam High blood triglycerides Reason for Exam Hypothyroidism, unspecified type Performed By: #### G TT3 #### [facility] [address] [place] [address] Sodium [Moles/volume] in Ser um or PlasmaOrdered By: Nataly Toure on 08-03-2023 Sodium [Moles/Vol] 140 mmol/L Normal 136-145 [facility] Comment on above: Order Comment: Reaso n for Exam Hypothyroidism, unspecified type;High blood triglycerides Reason for Exam Iron deficiency Reason for Exam High blood triglycerides Reason for Exam Hypothyroidism, unspecified type Performed By: #### G TT3 #### [address] Thyroid Stim Hormone w/Rflxo n 08-03-2023 Thyroid Stim Hormone w/Rflx 3.20 u[iU]/mL Normal 0.45-5.33 [facility] Comment on above: Order Comment: Reaso n for Exam Hypothyroidism, unspecified type;High blood triglycerides Reason for Exam Iron deficiency Reason for Exam High blood triglycerides Reason for Exam Hypothyroidism, unspecified type Result Comment: PERF ORMED BY: [place] [address] PATHOLOGIST C4 PLANNER ALLA OROZCO M.D. Performed By: #### G TT3 #### [facility] [address] [place] [address] Thyrotropin [Units/volume] i n Serum or PlasmaOrdered By: Nataly Toure on 08-03-2023 TSH Qn 3.20 m[IU]/L 0.45-5.33 [facility] Transferrin [Mass/volume] in Serum or PlasmaOrdered By: Nataly Toure on 08-03-2023 Transferrin [Mass/Vol] 273 mg/dL Normal 203-362 [facility] Comment on above: Order Comment: Reaso n for Exam Hypothyroidism, unspecified type;High blood triglycerides Reason for Exam Iron deficiency Reason for Exam High blood triglycerides Reason for Exam Hypothyroidism, unspecified type Performed By: #### G TT3 #### [facility] [address] [place] [address] Triglyceride [Mass/volume] i n Serum or PlasmaOrdered By: Nataly Toure on 08-03-2023 Triglyceride [Mass/Vol] 140 mg/dL 0-149 [facility] Comment on above: TRIG ATP III CLASSIF ICATIONTRIG less than 150 mg/dL NormalTRIG 150-199 mg/dL Borderline highTRIG 200-500 mg/dL High TRIG greater than 500 mg/dL Very highStandard traceable to the Center for Disease Conrtrol and Prevention (CDC) test method. Urea nitrogen [Mass/volume] in Serum or PlasmaOrdered By: Nataly Toure on 08-03-2023 Urea nitrogen [Mass/Vol] 10 mg/dL Normal 7-25 [facility] Comment on above: Order Comment: Reaso n for Exam Hypothyroidism, unspecified type;High blood triglycerides Reason for Exam Iron deficiency Reason for Exam High blood triglycerides Reason for Exam Hypothyroidism, unspecified type Performed By: #### G TT3 #### [address] Complete Blood Count Auto Di ffon 04-15-2023 Basophils (Bld) [#/Vol] 0.0 10*3/uL Normal 0.0-0.2 [facility] Comment on above: Order Comment: Reaso n for Exam Iron deficiency Result Comment: PERF ORMED BY: [place] [address] PATHOLOGIST C4 PLANNER ALLA OROZCO M.D. Performed By: #### C BC #### [address] #### RPR W RFX #### [facility] , Basophils/100 WBC (Bld) 0.5 % Normal . [facility] Comment on above: Order Comment: Reaso n for Exam Iron deficiency Performed By: #### C BC #### [address] #### RPR W RFX #### [facility] , Eosinophils (Bld) [#/Vol] 0.2 10*3/uL Normal 0.0-0.45 [facility] Comment on above: Order Comment: Reaso n for Exam Iron deficiency Performed By: #### C BC #### [address] #### RPR W RFX #### [facility] , Eosinophils/100 WBC (Bld) 3.8 % Normal . [facility] Comment on above: Order Comment: Reaso n for Exam Iron deficiency Performed By: #### C BC #### [place] [address] [place] #### RPR W RFX #### [facility] , Erythrocyte distribution width (RBC) [Ratio] 16.9 % High 11.9-15.3 [facility] Comment on above: Order Comment: Reaso n for Exam Iron deficiency Performed By: #### C BC #### [address] [place] [address] [place] #### RPR W RFX #### [facility] , Hematocrit (Bld) [Volume fraction] 36.2 % Normal 34.0-46.4 [facility] Comment on above: Order Comment: Reaso n for Exam Iron deficiency Performed By: #### C BC #### [address] #### RPR W RFX #### [facility] , Hemoglobin (Bld) [Mass/Vol] 12.0 g/dL Normal 11.8-15.4 [facility] Comment on above: Order Comment: Reaso n for Exam Iron deficiency Performed By: #### C BC #### [address] #### RPR W RFX #### [facility] , Lymphocytes (Bld) [#/Vol] 1.6 10*3/uL Normal 1.00-4.8 [facility] Comment on above: Order Comment: Reaso n for Exam Iron deficiency Performed By: #### C BC #### [address] #### RPR W RFX #### [facility] , Lymphocytes/100 WBC (Bld) 28.1 % Normal . [facility] Comment on above: Order Comment: Reaso n for Exam Iron deficiency Performed By: #### C BC #### [address] #### RPR W RFX #### [facility] , MCH (RBC) [Entitic mass] 25.7 pg Normal 24.7-34.3 [facility] Comment on above: Order Comment: Reaso n for Exam Iron deficiency Performed By: #### C BC #### [address] #### RPR W RFX #### [facility] , MCV (RBC) [Entitic vol] 77.7 fL Low 80-100 [facility] Comment on above: Order Comment: Reaso n for Exam Iron deficiency Performed By: #### C BC #### [place] [address] [place] #### RPR W RFX #### [facility] , Mean Corpuscular HGB Conc 33.1 g/dL Normal 32.0-35.0 [facility] Comment on above: Order Comment: Reaso n for Exam Iron deficiency Performed By: #### C BC #### [place] [address] [place] #### RPR W RFX #### [facility] , Monocytes (Bld) [#/Vol] 0.5 10*3/uL Normal 0.0-0.8 [facility] Comment on above: Order Comment: Reaso n for Exam Iron deficiency Performed By: #### C BC #### [address] #### RPR W RFX #### [facility] , Monocytes/100 WBC (Bld) 9.0 % Normal . [facility] Comment on above: Order Comment: Reaso n for Exam Iron deficiency Performed By: #### C BC #### [place] [address] [place] #### RPR W RFX #### [facility] , Neutrophils (Bld) [#/Vol] 3.3 10*3/uL Normal 1.8-7.7 [facility] Comment on above: Order Comment: Reaso n for Exam Iron deficiency Performed By: #### C BC #### [place] [address] [place] #### RPR W RFX #### [facility] , Neutrophils/100 WBC (Bld) 58.6 % Normal . [facility] Comment on above: Order Comment: Reaso n for Exam Iron deficiency Performed By: #### C BC #### [facility] [address] [place] [address] [place] #### RPR W RFX #### [facility] , NRBC% 0.1 /100{WBC} Normal 0-0.5 [facility] Comment on above: Order Comment: Reaso n for Exam Iron deficiency Performed By: #### C BC #### [facility] [address] [place] [address] [place] #### RPR W RFX #### [facility] , Platelet mean volume (Bld) [Entitic vol] 9.1 fL Normal 6.3-10.7 [facility] Comment on above: Order Comment: Reaso n for Exam Iron deficiency Performed By: #### C BC #### [address] #### RPR W RFX #### [facility] , Platelets (Bld) [#/Vol] 220 10*3/uL Normal 150-450 [facility] Comment on above: Order Comment: Reaso n for Exam Iron deficiency Performed By: #### C BC #### [place] [address] [place] #### RPR W RFX #### [facility] , RBC (Bld) [#/Vol] 4.66 10*6/uL Normal 3.60-5.00 [facility] Comment on above: Order Comment: Reaso n for Exam Iron deficiency Performed By: #### C BC #### [place] [address] [place] #### RPR W RFX #### [facility] , WBC (Bld) [#/Vol] 5.6 10*3/uL Normal 3.8-11.6 [facility] Comment on above: Order Comment: Reaso n for Exam Iron deficiency Performed By: #### C BC #### [facility] [address] [place] [address] [place] #### RPR W RFX #### [facility] , Comprehensive Metabolic Pane marco 04-15-2023 Albumin [Mass/Vol] 4.1 g/dL Normal 3.5-5.7 [facility] Comment on above: Order Comment: Reaso n for Exam Iron deficiency Reason for Exam High blood triglycerides Performed By: #### C BC #### [facility] [address] [place] [address] [place] #### RPR W RFX #### [facility] , Albumin/Globulin [Mass ratio] 1.4 {ratio} Normal [facility] Comment on above: Order Comment: Reaso n for Exam Iron deficiency Reason for Exam High blood triglycerides Performed By: #### C BC #### [address] #### RPR W RFX #### [facility] , ALP [Catalytic activity/Vol] 89 U/L Normal 34-104 [facility] Comment on above: Order Comment: Reaso n for Exam Iron deficiency Reason for Exam High blood triglycerides Performed By: #### C BC #### [facility] [address] [place] [address] #### RPR W RFX #### [facility] , ALT [Catalytic activity/Vol] 14 U/L Normal 7-52 [facility] Comment on above: Order Comment: Reaso n for Exam Iron deficiency Reason for Exam High blood triglycerides Performed By: #### C BC #### [facility] [address] [place] [address] [place] #### RPR W RFX #### [facility] , Anion gap [Moles/Vol] 10.2 mmol/L Normal 6.0-15.0 [facility] Comment on above: Order Comment: Reaso n for Exam Iron deficiency Reason for Exam High blood triglycerides Performed By: #### C BC #### [facility] [address] [place] [address] [place] #### RPR W RFX #### [facility] , AST [Catalytic activity/Vol] 13 U/L Normal 13-39 [facility] Comment on above: Order Comment: Reaso n for Exam Iron deficiency Reason for Exam High blood triglycerides Performed By: #### C BC #### [address] #### RPR W RFX #### [facility] , Bilirubin [Mass/Vol] 0.3 mg/dL Normal 0.3-1.0 [facility] Comment on above: Order Comment: Reaso n for Exam Iron deficiency Reason for Exam High blood triglycerides Performed By: #### C BC #### [facility] [address] [place] [address] #### RPR W RFX #### [facility] , Calcium [Mass/Vol] 9.0 mg/dL Normal 8.6-10.3 [facility] Comment on above: Order Comment: Reaso n for Exam Iron deficiency Reason for Exam High blood triglycerides Performed By: #### C BC #### [facility] [address] [place] [address] #### RPR W RFX #### [facility] , Chloride [Moles/Vol] 105 mmol/L Normal 98-107 [facility] Comment on above: Order Comment: Reaso n for Exam Iron deficiency Reason for Exam High blood triglycerides Performed By: #### C BC #### [facility] [address] [place] [address] [place] #### RPR W RFX #### [facility] , CO2 [Moles/Vol] 27.9 mmol/L Normal 21.0-31.0 [facility] Comment on above: Order Comment: Reaso n for Exam Iron deficiency Reason for Exam High blood triglycerides Performed By: #### C BC #### [place] [address] [place] #### RPR W RFX #### [facility] , Creatinine [Mass/Vol] 0.69 mg/dL Normal 0.60-1.20 [facility] Comment on above: Order Comment: Reaso n for Exam Iron deficiency Reason for Exam High blood triglycerides Performed By: #### C BC #### [place] [address] [place] #### RPR W RFX #### [facility] , GFR/1.73 sq M.predicted MDRD (S/P/Bld) [Vol rate/Area] mL/min/{1.73_m2} Normal [facility] Comment on above: Order Comment: Reaso n for Exam Iron deficiency Reason for Exam High blood triglycerides Performed By: #### C BC #### [address] #### RPR W RFX #### [facility] , Globulin (S) [Mass/Vol] 2.9 g/dL Normal [facility] Group Comment on above: Order Comment: Reaso n for Exam Iron deficiency Reason for Exam High blood triglycerides Performed By: #### C BC #### [address] #### RPR W RFX #### [facility] , Glucose [Mass/Vol] 103 mg/dL High 70-100 [facility] Comment on above: Order Comment: Reaso n for Exam Iron deficiency Reason for Exam High blood triglycerides Result Comment: [place] Glucose Reference Range is dependent on time and content of last meal. Glucose of more than 200 mg/dL in a nonstressed, ambulatory subject supports the diagnosis of Diabetes Mellitus. ADA recommended reference range Performed By: #### C BC #### [facility] [address] [place] [address] [place] #### RPR W RFX #### [facility] , Potassium [Moles/Vol] 4.1 mmol/L Normal 3.5-5.1 [facility] Comment on above: Order Comment: Reaso n for Exam Iron deficiency Reason for Exam High blood triglycerides Performed By: #### C BC #### [address] [place] [address] [place] #### RPR W RFX #### [facility] , Protein [Mass/Vol] 7.0 g/dL Normal 6.4-8.9 [facility] Comment on above: Order Comment: Reaso n for Exam Iron deficiency Reason for Exam High blood triglycerides Performed By: #### C BC #### [facility] [address] [place] [address] [place] #### RPR W RFX #### [facility] , Sodium [Moles/Vol] 139 mmol/L Normal 136-145 [facility] Comment on above: Order Comment: Reaso n for Exam Iron deficiency Reason for Exam High blood triglycerides Performed By: #### C BC #### [address] #### RPR W RFX #### [facility] , Urea nitrogen [Mass/Vol] 12 mg/dL Normal 7-25 [facility] Comment on above: Order Comment: Reaso n for Exam Iron deficiency Reason for Exam High blood triglycerides Performed By: #### C BC #### [facility] [address] [place] [address] #### RPR W RFX #### [facility] , Iron and TIBC Profileon 03-19 9-2023 % Iron Saturation 8.6 % Low 20-50 [facility] Comment on above: Order Comment: Reaso n for Exam Iron deficiency Reason for Exam High blood triglycerides Performed By: #### C BC #### [facility] [address] [place] [address] [place] #### RPR W RFX #### [facility] , Iron [Mass/Vol] 28 ug/dL Low 50-212 [facility] Comment on above: Order Comment: Reaso n for Exam Iron deficiency Reason for Exam High blood triglycerides Performed By: #### C BC #### [facility] [address] [place] [address] [place] #### RPR W RFX #### [facility] , Total Iron Binding Capacity 326 ug/dL Normal 255-450 [facility] Comment on above: Order Comment: Reaso n for Exam Iron deficiency Reason for Exam High blood triglycerides Performed By: #### C BC #### [facility] [address] [place] [address] #### RPR W RFX #### [facility] , Transferrin [Mass/Vol] 233 mg/dL Normal 203-362 [facility] Comment on above: Order Comment: Reaso n for Exam Iron deficiency Reason for Exam High blood triglycerides Performed By: #### C BC #### [facility] [address] [place] [address] #### RPR W RFX #### [facility] , Lipid Panelon 04-15-2023 Cholesterol [Mass/Vol] 131 mg/dL Low 140-200 [facility] Comment on above: Order Comment: Reaso n for Exam Iron deficiency Reason for Exam High blood triglycerides Result Comment: Chol less than 200 mg/dl low risk Chol 201-239 mg/dl borderline risk Chol 240 mg/dl and greater high risk Performed By: #### C BC #### [facility] [address] [place] [address] [place] #### RPR W RFX #### [facility] , Cholesterol in HDL [Mass/Vol] 39 mg/dL Normal 23-92 [facility] Comment on above: Order Comment: Reaso n for Exam Iron deficiency Reason for Exam High blood triglycerides Result Comment: HDL CHOL ATP-III CLASSIFICATION Cardiovascular Risk HDL > or equal to 60 mg/dL LOW HDL < 40 mg/dL HIGH Performed By: #### C BC #### [facility] [address] [place] [address] [place] #### RPR W RFX #### [facility] , Cholesterol.total/Chol esterol in HDL [Mass ratio] 3.4 {ratio} Normal <5.0 [facility] Comment on above: Order Comment: Reaso n for Exam Iron deficiency Reason for Exam High blood triglycerides Result Comment: PERF ORMED BY: [place] [address] PATHOLOGIST C4 PLANNER ALLA OROZCO M.D. Performed By: #### C BC #### [address] #### RPR W RFX #### [facility] , LDL Cholesterol,Calculated 58 mg/dL Normal 0-100 [facility] Comment on above: Order Comment: Reaso n for Exam Iron deficiency Reason for Exam High blood triglycerides Result Comment: LDL ATP III CLASSIFICATION LDL less than 100 mg/dL Optimal LDL 100-129 mg/dL Near or above optimal LDL 130-159 mg/dL Borderline high LDL 160-189 mg/dL High LDL greater than 189 mg/dL Very high Performed By: #### C BC #### [address] #### RPR W RFX #### [facility] , Triglyceride w/Reflex 170 mg/dL High 0-149 [facility] Comment on above: [...] method. Performed By: #### C BC #### [place] [address] [place] #### RPR W RFX #### [facility] , VLDL CHOLESTEROL 34 mg/dL Normal [facility] Comment on above: Order Comment: Reaso n for Exam Iron deficiency Reason for Exam High blood triglycerides Performed By: #### C BC #### [place] [address] [place] #### RPR W RFX #### [facility] , A1C with Estimated Average G luon 03-17-2023 Glucose [Mass/Vol] 114 mg/dL Normal [facility] Comment on above: Order Comment: Name Collection Type:: Clean-Voided Midstream Result Comment: PERF ORMED BY: [place] [address] PATHOLOGIST C4 PLANNER ALLA OROZCO M.D. Performed By: #### A IHSAN GARCIAG #### [address] Glucose mean value [Mass/vol ume] in Blood Estimated from glycated hemoglobinOrdered By: Nataly Toure on 03-17-2023 Average glucose Estimated from glycated hemoglobin (Bld) [Mass/Vol] 114 mg/dL [facility] Hemoglobin A1c percentageOrd ered By: Nataly Toure on 03-17-2023 HbA1c (Bld) [Mass fraction] 5.6 % Normal 4.3-5.6 [facility] Comment on above: Increased risk for d iabetes: 5.7 - 6.4diabetes: >6.4glycemic control for adults with diabetes: <7.0 Order Comment: Name Collection Type:: Clean-Voided Midstream Result Comment: Incr eased risk for diabetes: 5.7 - 6.4 diabetes: >6.4 glycemic control for adults with diabetes: <7.0 Performed By: #### A VERNA GARCIA #### [address] Insulinon 03-17-2023 Insulin 105.0 u[iU]/mL High 2.6-24.9 [facility] Comment on above: Order Comment: Name Collection Type:: Clean-Voided Midstream Result Comment: Perf ormed at: - [facility] [address] [id number] Human Resources Team Member: Sam Lopez PhD, Phone: [phone] PERFORMED BY: [place] [address] PATHOLOGIST C4 PLANNER ALLA OROZCO M.D. Performed By: #### A BROCK GARCIACG #### [address] Alanine aminotransferase [En zymatic activity/volume] in Serum or PlasmaOrdered By: Nataly Toure on 03-04-2023 ALT [Catalytic activity/Vol] 12 U/L Normal 7-52 [facility] Comment on above: Order Comment: Reaso n for Exam Obesity, unspecified;High blood triglycerides Reason for Exam Iron deficiency Reason for Exam High blood triglycerides Reason for Exam Hypothyroidism, unspecified type Performed By: #### C BC #### [facility] [address] [place] [address] [place] #### RPR W RFX #### [facility] , Albumin [Mass/volume] in Ser um or Plasma by Bromocresol green (BCG) dye binding methoOrdered By: Nataly Toure on 03-04-2023 Albumin BCG dye [Mass/Vol] 3.7 g/dL 3.5-5.7 [facility] Alkaline phosphatase [Enzyma tic activity/volume] in Serum or PlasmaOrdered By: Nataly Toure on 03-04-2023 ALP [Catalytic activity/Vol] 100 U/L Normal 34-104 [facility] Comment on above: Order Comment: Reaso n for Exam Obesity, unspecified;High blood triglycerides Reason for Exam Iron deficiency Reason for Exam High blood triglycerides Reason for Exam Hypothyroidism, unspecified type Performed By: #### C BC #### [facility] [address] [place] [address] #### RPR W RFX #### [facility] , Aspartate aminotransferase [ Enzymatic activity/volume] in Serum or PlasmaOrdered By: Nataly Toure on 03-04-2023 AST [Catalytic activity/Vol] 12 U/L Low 13-39 [facility] Comment on above: Order Comment: Reaso n for Exam Obesity, unspecified;High blood triglycerides Reason for Exam Iron deficiency Reason for Exam High blood triglycerides Reason for Exam Hypothyroidism, unspecified type Performed By: #### C BC #### [place] [address] [place] #### RPR W RFX #### [facility] , Automated basophil %Ordered By: Nataly Toure on 03-04-2023 Basophils/100 WBC (Bld) 1.0 % Normal . [facility] Comment on above: Order Comment: Reaso n for Exam Obesity, unspecified;High blood triglycerides Performed By: #### C BC #### [facility] [address] [place] [address] #### RPR W RFX #### [facility] , Automated basophil countOrde red By: Nataly Tejal on 03-04-2023 Basophils (Bld) [#/Vol] 0.1 10*3/uL Normal 0.0-0.2 [facility] Comment on above: Order Comment: Reaso n for Exam Obesity, unspecified;High blood triglycerides Result Comment: PERF ORMED BY: [place] [address] PATHOLOGIST C4 PLANNER ALLA OROZCO M.D. Performed By: #### C BC #### [place] [address] [place] #### RPR W RFX #### [facility] , Automated blood monocyte cou ntOrdered By: Natalyharlan Toure on 03-04-2023 Monocytes (Bld) [#/Vol] 0.6 10*3/uL Normal 0.0-0.8 [facility] Comment on above: Order Comment: Reaso n for Exam Obesity, unspecified;High blood triglycerides Performed By: #### C BC #### [facility] [address] [place] [address] [place] #### RPR W RFX #### [facility] , Automated eosinophil %Ordere d By: Nataly Delonc on 03-04-2023 Eosinophils/100 WBC (Bld) 2.0 % Normal . [facility] Comment on above: Order Comment: Reaso n for Exam Obesity, unspecified;High blood triglycerides Performed By: #### C BC #### [place] [address] [place] #### RPR W RFX #### [facility] , Automated eosinophil countOr dered By: Nataly Toure on 03-04-2023 Eosinophils (Bld) [#/Vol] 0.1 10*3/uL Normal 0.0-0.45 [facility] Comment on above: Order Comment: Reaso n for Exam Obesity, unspecified;High blood triglycerides Performed By: #### C BC #### [facility] [address] [place] [address] [place] #### RPR W RFX #### [facility] , Automated monocyte %Ordered By: Nataly Toure on 03-04-2023 Monocytes/100 WBC (Bld) 9.2 % Normal . [facility] Comment on above: Order Comment: Reaso n for Exam Obesity, unspecified;High blood triglycerides Performed By: #### C BC #### [place] [address] [place] #### RPR W RFX #### [facility] , Automated neutrophil %Ordere d By: Nataly Toure on 03-04-2023 Neutrophils/100 WBC (Bld) 58.4 % Normal . [facility] Comment on above: Order Comment: Reaso n for Exam Obesity, unspecified;High blood triglycerides Performed By: #### C BC #### [place] [address] [place] #### RPR W RFX #### [facility] , Bilirubin.total [Mass/volume ] in Serum or PlasmaOrdered By: Nataly Toure on 03-04-2023 Bilirubin [Mass/Vol] 0.3 mg/dL Normal 0.3-1.0 [facility] Comment on above: Order Comment: Reaso n for Exam Obesity, unspecified;High blood triglycerides Reason for Exam Iron deficiency Reason for Exam High blood triglycerides Reason for Exam Hypothyroidism, unspecified type Performed By: #### C BC #### [place] [address] [place] #### RPR W RFX #### [facility] , Calcium [Mass/volume] in Ser um or PlasmaOrdered By: Nataly Toure on 03-04-2023 Calcium [Mass/Vol] 8.9 mg/dL Normal 8.6-10.3 [facility] Comment on above: Order Comment: Reaso n for Exam Obesity, unspecified;High blood triglycerides Reason for Exam Iron deficiency Reason for Exam High blood triglycerides Reason for Exam Hypothyroidism, unspecified type Performed By: #### C BC #### [facility] [address] [place] [address] [place] #### RPR W RFX #### [facility] , Carbon dioxide, total [Moles /volume] in Serum or PlasmaOrdered By: Nataly Toure on 03-04-2023 CO2 [Moles/Vol] 26.6 mmol/L Normal 21.0-31.0 [facility] Comment on above: Order Comment: Reaso n for Exam Obesity, unspecified;High blood triglycerides Reason for Exam Iron deficiency Reason for Exam High blood triglycerides Reason for Exam Hypothyroidism, unspecified type Performed By: #### C BC #### [facility] [address] [place] [address] [place] #### RPR W RFX #### [facility] , Chloride [Moles/volume] in S rosa or PlasmaOrdered By: Nataly Toure on 03-04-2023 Chloride [Moles/Vol] 105 mmol/L Normal 98-107 [facility] Comment on above: Order Comment: Reaso n for Exam Obesity, unspecified;High blood triglycerides Reason for Exam Iron deficiency Reason for Exam High blood triglycerides Reason for Exam Hypothyroidism, unspecified type Performed By: #### C BC #### [facility] [address] [place] [address] [place] #### RPR W RFX #### [facility] , Cholesterol [Mass/volume] in Serum or PlasmaOrdered By: Nataly Toure on 03-04-2023 Cholesterol [Mass/Vol] 231 mg/dL High 140-200 [facility] Comment on above: Chol less than [...] risk Performed By: #### C BC #### [facility] [address] [place] [address] [place] #### RPR W RFX #### [facility] , Cholesterol in LDL Calc [Mas s/Vol]Ordered By: Nataly Toure on 03-04-2023 Cholesterol in LDL [Mass/Vol] TNP [facility] Comment on above: Test not performed Cholesterol in LDL [Mass/vol ume] in Serum or PlasmaOrdered By: Nataly Toure on 03-04-2023 Cholesterol in LDL [Mass/Vol] 81 mg/dL 0-100 [facility] Comment on above: LDL ATP III CLASSIFI CATIONLDL less than 100 mg/dL OptimalLDL 100-129 mg/dL Near or above optimalLDL 130-159 mg/dL Borderline highLDL 160-189 mg/dL HighLDL greater than 189 mg/dL Very high Cholesterol in VLDL Calc [Ma ss/Vol]Ordered By: Nataly Toure on 03-04-2023 Cholesterol in VLDL [Mass/Vol] 172 mg/dL [facility] Complete Blood Count Auto Di ffon 03-04-2023 Mean Corpuscular HGB Conc 32.7 g/dL Normal 32.0-35.0 [facility] Comment on above: Order Comment: Reaso n for Exam Obesity, unspecified;High blood triglycerides Performed By: #### C BC #### [facility] [address] [place] [address] [place] #### RPR W RFX #### [facility] , NRBC% 0.1 /100{WBC} Normal 0-0.5 [facility] Comment on above: Order Comment: Reaso n for Exam Obesity, unspecified;High blood triglycerides Performed By: #### C BC #### [facility] [address] [place] [address] [place] #### RPR W RFX #### [facility] , Comprehensive Metabolic Pane marco 03-04-2023 Albumin [Mass/Vol] 3.7 g/dL Normal 3.5-5.7 [facility] Comment on above: Order Comment: Reaso n for Exam Obesity, unspecified;High blood triglycerides Reason for Exam Iron deficiency Reason for Exam High blood triglycerides Reason for Exam Hypothyroidism, unspecified type Performed By: #### C BC #### [facility] [address] [place] [address] [place] #### RPR W RFX #### [facility] , GFR/1.73 sq M.predicted MDRD (S/P/Bld) [Vol rate/Area] mL/min/{1.73_m2} Normal [facility] Comment on above: Order Comment: Reaso n for Exam Obesity, unspecified;High blood triglycerides Reason for Exam Iron deficiency Reason for Exam High blood triglycerides Reason for Exam Hypothyroidism, unspecified type Performed By: #### C BC #### [facility] [address] [place] [address] [place] #### RPR W RFX #### [facility] , Creatinine [Mass/volume] in Serum or PlasmaOrdered By: Nataly Toure on 03-04-2023 Creatinine [Mass/Vol] 0.72 mg/dL Normal 0.60-1.20 [facility] Comment on above: Order Comment: Reaso n for Exam Obesity, unspecified;High blood triglycerides Reason for Exam Iron deficiency Reason for Exam High blood triglycerides Reason for Exam Hypothyroidism, unspecified type Performed By: #### C BC #### [facility] [address] [place] [address] [place] #### RPR W RFX #### [facility] , Erythrocyte distribution wid th [Ratio] by Automated countOrdered By: Nataly Toure on 03-04-2023 Erythrocyte distribution width (RBC) [Ratio] 16.0 % High 11.9-15.3 [facility] Comment on above: Order Comment: Reaso n for Exam Obesity, unspecified;High blood triglycerides Performed By: #### C BC #### [facility] [address] [place] [address] [place] #### RPR W RFX #### [facility] , Erythrocytes [#/volume] in B lood by Automated countOrdered By: Nataly Toure on 03-04-2023 RBC (Bld) [#/Vol] 4.52 10*6/uL Normal 3.60-5.00 [facility] Comment on above: Order Comment: Reaso n for Exam Obesity, unspecified;High blood triglycerides Performed By: #### C BC #### [facility] [address] [place] [address] [place] #### RPR W RFX #### [facility] , Ferritin [Mass/volume] in Se rum or PlasmaOrdered By: Nataly Toure on 03-04-2023 Ferritin [Mass/Vol] 18.9 ng/mL Normal 11.0-306.8 [facility] Comment on above: Order Comment: Reaso n for Exam Obesity, unspecified;High blood triglycerides Reason for Exam Iron deficiency Reason for Exam High blood triglycerides Reason for Exam Hypothyroidism, unspecified type Performed By: #### C BC #### [facility] [address] [place] [address] [place] #### RPR W RFX #### [facility] , Glucose [Mass/volume] in Ser um or PlasmaOrdered By: Nataly Toure on 03-04-2023 Glucose [Mass/Vol] 95 mg/dL Normal 70-100 [facility] Comment on above: ADA recommended refe rence [...] for Exam Hypothyroidism, unspecified type Result Comment: [place] om Glucose Reference Range is dependent on time and content of last meal. Glucose of more than 200 mg/dL in a nonstressed, ambulatory subject supports the diagnosis of Diabetes Mellitus. ADA recommended reference range Performed By: #### C BC #### [facility] [address] [place] [address] [place] #### RPR W RFX #### [facility] , Hematocrit [Volume Fraction] of Blood by Automated countOrdered By: Nataly Toure on 03-04-2023 Hematocrit (Bld) [Volume fraction] 34.7 % Normal 34.0-46.4 [facility] Comment on above: Order Comment: Reaso n for Exam Obesity, unspecified;High blood triglycerides Performed By: #### C BC #### [facility] [address] [place] [address] [place] #### RPR W RFX #### [facility] , Hemoglobin [Mass/volume] in BloodOrdered By: Nataly Toure on 03-04-2023 Hemoglobin (Bld) [Mass/Vol] 11.3 g/dL Low 11.8-15.4 [facility] Comment on above: Order Comment: Reaso n for Exam Obesity, unspecified;High blood triglycerides Performed By: #### C BC #### [facility] [address] [place] [address] [place] #### RPR W RFX #### [facility] , Iron [Mass/volume] in Serum or PlasmaOrdered By: Nataly Toure on 03-04-2023 Iron [Mass/Vol] 43 ug/dL Low 50-212 [facility] Comment on above: Order Comment: Reaso n for Exam Obesity, unspecified;High blood triglycerides Reason for Exam Iron deficiency Reason for Exam High blood triglycerides Reason for Exam Hypothyroidism, unspecified type Performed By: #### C BC #### [facility] [address] [place] [address] [place] #### RPR W RFX #### [facility] , Iron and TIBC Profileon 02-15 % Iron Saturation 11.5 % Low 20-50 [facility] Comment on above: Order Comment: Reaso n for Exam Obesity, unspecified;High blood triglycerides Reason for Exam Iron deficiency Reason for Exam High blood triglycerides Reason for Exam Hypothyroidism, unspecified type Performed By: #### C BC #### [facility] [address] [place] [address] [place] #### RPR W RFX #### [facility] , Total Iron Binding Capacity 375 ug/dL Normal 255-450 [facility] Comment on above: Order Comment: Reaso n for Exam Obesity, unspecified;High blood triglycerides Reason for Exam Iron deficiency Reason for Exam High blood triglycerides Reason for Exam Hypothyroidism, unspecified type Performed By: #### C BC #### [facility] [address] [place] [address] [place] #### RPR W RFX #### [facility] , Iron binding capacity [Mass/ volume] in Serum or PlasmaOrdered By: Nataly Toure on 03-04-2023 Iron binding capacity [Mass/Vol] 375 ug/dL 255-450 [facility] Iron saturation [Mass Fracti on] in Serum or PlasmaOrdered By: Nataly Toure on 03-04-2023 Iron saturation [Mass fraction] 11.5 % 20-50 [facility] LDL Cholesterol Measuredon 0 03-04-2023 LDL Cholesterol Measured 81 mg/dL Normal 0-100 [facility] Comment on above: [...] high Performed By: #### C USTB #### [facility] [address] [place] [address] Leukocytes [#/volume] correc kee for nucleated erythrocytes in Blood by Automated counOrdered By: Nataly Toure on 03-04-2023 WBC corrected for nucl RBC Auto (Bld) [#/Vol] 6.2 10*3/uL 3.8-11.6 [facility] Leukocytes [#/volume] in Blo od by Automated countOrdered By: Nataly Toure on 03-04-2023 WBC (Bld) [#/Vol] 6.2 10*3/uL Normal 3.8-11.6 [facility] Comment on above: Order Comment: Reaso n for Exam Obesity, unspecified;High blood triglycerides Performed By: #### C BC #### [facility] [address] [place] [address] [place] #### RPR W RFX #### [facility] , Lipid Panelon 03-04-2023 LDL Cholesterol,Calculated Not performed Normal 0-100 [facility] Comment on above: Order Comment: Reaso n for Exam Obesity, unspecified;High blood triglycerides Reason for Exam Iron deficiency Reason for Exam High blood triglycerides Reason for Exam Hypothyroidism, unspecified type Performed By: #### C BC #### [facility] [address] [place] [address] [place] #### RPR W RFX #### [facility] , Triglyceride w/Reflex 863 mg/dL High 0-149 [facility] Comment on above: [...] resulted. Performed By: #### C BC #### [facility] [address] [place] [address] [place] #### RPR W RFX #### [facility] , VLDL CHOLESTEROL 172 mg/dL Normal [facility] Comment on above: Order Comment: Reaso n for Exam Obesity, unspecified;High blood triglycerides Reason for Exam Iron deficiency Reason for Exam High blood triglycerides Reason for Exam Hypothyroidism, unspecified type Performed By: #### C BC #### [facility] [address] [place] [address] [place] #### RPR W RFX #### [facility] , Lymphocytes [#/volume] in Bl ood by Automated countOrdered By: Nataly Toure on 03-04-2023 Lymphocytes (Bld) [#/Vol] 1.8 10*3/uL Normal 1.00-4.8 [facility] Comment on above: Order Comment: Reaso n for Exam Obesity, unspecified;High blood triglycerides Performed By: #### C BC #### [facility] [address] [place] [address] [place] #### RPR W RFX #### [facility] , Lymphocytes/100 leukocytes i n Blood by Automated countOrdered By: Nataly Toure on 03-04-2023 Lymphocytes/100 WBC (Bld) 29.4 % Normal . [facility] Comment on above: Order Comment: Reaso n for Exam Obesity, unspecified;High blood triglycerides Performed By: #### C BC #### [facility] [address] [place] [address] [place] #### RPR W RFX #### [facility] , [facility] [Entitic mass] by Automa kee countOrdered By: Nataly Toure on 03-04-2023 MCH (RBC) [Entitic mass] 25.1 pg Normal 24.7-34.3 [facility] Comment on above: Order Comment: Reaso n for Exam Obesity, unspecified;High blood triglycerides Performed By: #### C BC #### [facility] [address] [place] [address] [place] #### RPR W RFX #### [facility] , MCHC Auto (RBC) [Mass/Vol]Or dered By: Nataly Toure on 03-04-2023 MCHC (RBC) [Mass/Vol] 32.7 g/dL 32.0-35.0 [facility] MCV [Entitic volume] by Auto mated countOrdered By: Nataly Toure on 03-04-2023 MCV (RBC) [Entitic vol] 76.7 fL Low 80-100 [facility] Comment on above: Order Comment: Reaso n for Exam Obesity, unspecified;High blood triglycerides Performed By: #### C BC #### [place] [address] [place] #### RPR W RFX #### [facility] , Neutrophils [#/volume] in Bl ood by Automated countOrdered By: Nataly Toure on 03-04-2023 Neutrophils (Bld) [#/Vol] 3.6 10*3/uL Normal 1.8-7.7 [facility] Comment on above: Order Comment: Reaso n for Exam Obesity, unspecified;High blood triglycerides Performed By: #### C BC #### [place] [address] [place] #### RPR W RFX #### [facility] , No Panel InformationOrdered By: Nataly Toure on 03-04-2023 Estimated GFR (CKD-EPI) > 60.0 mL/Min [facility] Creatinine Clearance (Chem N/A [facility] Nucleated erythrocytes [Pres ence] in Blood by Automated countOrdered By: Nataly Toure on 03-04-2023 Nucleated RBC Auto Ql (Bld) 0.1 /100{WBC} 0-0.5 [facility] Platelet mean volume [Entiti c volume] in Blood by Automated countOrdered By: Nataly Toure on 03-04-2023 Platelet mean volume (Bld) [Entitic vol] 9.8 fL Normal 6.3-10.7 [facility] Comment on above: Order Comment: Reaso n for Exam Obesity, unspecified;High blood triglycerides Performed By: #### C BC #### [facility] [address] [place] [address] [place] #### RPR W RFX #### [facility] , Platelets [#/volume] in Bloo d by Automated countOrdered By: Nataly Toure on 03-04-2023 Platelets (Bld) [#/Vol] 217 10*3/uL Normal 150-450 [facility] Comment on above: Order Comment: Reaso n for Exam Obesity, unspecified;High blood triglycerides Performed By: #### C BC #### [address] #### RPR W RFX #### [facility] , Potassium [Moles/volume] in Serum or PlasmaOrdered By: Nataly Toure on 03-04-2023 Potassium [Moles/Vol] 3.8 mmol/L Normal 3.5-5.1 [facility] Comment on above: Order Comment: Reaso n for Exam Obesity, unspecified;High blood triglycerides Reason for Exam Iron deficiency Reason for Exam High blood triglycerides Reason for Exam Hypothyroidism, unspecified type Performed By: #### C BC #### [place] [address] [place] #### RPR W RFX #### [facility] , Protein [Mass/volume] in Ser um or PlasmaOrdered By: Nataly Toure on 03-04-2023 Protein [Mass/Vol] 6.4 g/dL Normal 6.4-8.9 [facility] Comment on above: Order Comment: Reaso n for Exam Obesity, unspecified;High blood triglycerides Reason for Exam Iron deficiency Reason for Exam High blood triglycerides Reason for Exam Hypothyroidism, unspecified type Performed By: #### C BC #### [facility] [address] [place] [address] [place] #### RPR W RFX #### [facility] , Serum globulin measurement b y calculation (mass/volume)Ordered By: Nataly Toure on 03-04-2023 Globulin (S) [Mass/Vol] 2.7 g/dL Normal [facility] Comment on above: Order Comment: Reaso n for Exam Obesity, unspecified;High blood triglycerides Reason for Exam Iron deficiency Reason for Exam High blood triglycerides Reason for Exam Hypothyroidism, unspecified type Performed By: #### C BC #### [address] [address] [place] #### RPR W RFX #### [facility] , Serum or plasma albumin/glob ulin mass ratioOrdered By: Nataly Toure on 03-04-2023 Albumin/Globulin [Mass ratio] 1.4 {ratio} Normal [facility] Comment on above: Order Comment: Reaso n for Exam Obesity, unspecified;High blood triglycerides Reason for Exam Iron deficiency Reason for Exam High blood triglycerides Reason for Exam Hypothyroidism, unspecified type Performed By: #### C BC #### [facility] [address] [place] [address] [place] #### RPR W RFX #### [facility] , Serum or plasma anion gap de terminationOrdered By: Nataly Toure on 03-04-2023 Anion gap [Moles/Vol] 11.2 mmol/L Normal 6.0-15.0 [facility] Comment on above: Order Comment: Reaso n for Exam Obesity, unspecified;High blood triglycerides Reason for Exam Iron deficiency Reason for Exam High blood triglycerides Reason for Exam Hypothyroidism, unspecified type Performed By: #### C BC #### [facility] [address] [place] [address] [place] #### RPR W RFX #### [facility] , Serum or plasma high density lipoprotein (HDL) cholesterol measurementOrdered By: Nataly Toure on 03-04-2023 Cholesterol in HDL [Mass/Vol] 35 mg/dL Normal 23-92 [facility] Comment on above: HDL CHOL ATP-III [...] HIGH Performed By: #### C BC #### [facility] [address] [place] [address] [place] #### RPR W RFX #### [facility] , Serum or plasma total choles terol/high density lipoprotein (HDL) cholesterol mass ratOrdered By: Nataly Toure on 03-04-2023 Cholesterol.total/Chol esterol in HDL [Mass ratio] 6.6 {ratio} Normal <5.0 [facility] Comment on above: Order Comment: Reaso n for Exam Obesity, unspecified;High blood triglycerides Reason for Exam Iron deficiency Reason for Exam High blood triglycerides Reason for Exam Hypothyroidism, unspecified type Performed By: #### C BC #### [facility] [address] [place] [address] #### RPR W RFX #### [facility] , Sodium [Moles/volume] in Ser um or PlasmaOrdered By: Nataly Toure on 03-04-2023 Sodium [Moles/Vol] 139 mmol/L Normal 136-145 [facility] Comment on above: Order Comment: Reaso n for Exam Obesity, unspecified;High blood triglycerides Reason for Exam Iron deficiency Reason for Exam High blood triglycerides Reason for Exam Hypothyroidism, unspecified type Performed By: #### C BC #### [facility] [address] [place] [address] #### RPR W RFX #### [facility] , Thyroid Stim Hormone w/Rflxo n 03-04-2023 Thyroid Stim Hormone w/Rflx 1.50 u[iU]/mL Normal 0.45-5.33 [facility] Comment on above: Order Comment: Reaso n for Exam Obesity, unspecified;High blood triglycerides Reason for Exam Iron deficiency Reason for Exam High blood triglycerides Reason for Exam Hypothyroidism, unspecified type Result Comment: PERF ORMED BY: [place] [address] PATHOLOGIST C4 PLANNER ALLA OROZCO M.D. Performed By: #### C USTB #### [facility] [address] [place] [address] Thyrotropin [Units/volume] i n Serum or PlasmaOrdered By: Nataly Toure on 03-04-2023 TSH Qn 1.50 m[IU]/L 0.45-5.33 [facility] Transferrin [Mass/volume] in Serum or PlasmaOrdered By: Nataly Toure on 03-04-2023 Transferrin [Mass/Vol] 268 mg/dL Normal 203-362 [facility] Comment on above: Order Comment: Reaso n for Exam Obesity, unspecified;High blood triglycerides Reason for Exam Iron deficiency Reason for Exam High blood triglycerides Reason for Exam Hypothyroidism, unspecified type Performed By: #### C BC #### [facility] [address] [place] [address] [place] #### RPR W RFX #### [facility] , Triglyceride [Mass/volume] i n Serum or PlasmaOrdered By: Nataly Toure on 03-04-2023 Triglyceride [Mass/Vol] 863 mg/dL 0-149 [facility] Comment on above: If the triglyceride [...] Urea nitrogen [Mass/Vol] 11 mg/dL Normal 7-25 [facility] Comment on above: Order Comment: Reaso n for Exam Obesity, unspecified;High blood triglycerides Reason for Exam Iron deficiency Reason for Exam High blood triglycerides Reason for Exam Hypothyroidism, unspecified type Performed By: #### C BC #### [facility] [address] [place] [address] [place] #### RPR W RFX #### [facility] , Vitamin B12 ser/plasOrdered By: Nataly Toure on 03-04-2023 Cobalamin (Vitamin B12) [Mass/Vol] 303 pg/mL Normal 180-914 [facility] Comment on above: Order Comment: Reaso n for Exam Obesity, unspecified;High blood triglycerides Reason for Exam Iron deficiency Reason for Exam High blood triglycerides Reason for Exam Hypothyroidism, unspecified type Performed By: #### C USTB #### [address] Automated basophil %Ordered By: EDE WAY on 02-13-2023 Basophils/100 WBC (Bld) 0.7 % Normal . [facility] Comment on above: Performed By: #### C BC #### [address] #### RPR W RFX #### [facility] , Automated basophil countOrde red By: EDE WAY on 02-13-2023 Basophils (Bld) [#/Vol] 0.1 10*3/uL Normal 0.0-0.2 [facility] Comment on above: Result Comment: PERF ORMED BY: [place] [address] PATHOLOGIST C4 PLANNER ALLA OROZCO M.D. Performed By: #### C BC #### [address] #### RPR W RFX #### [facility] , Automated blood monocyte cou ntOrdered By: EDE WAY on 02-13-2023 Monocytes (Bld) [#/Vol] 0.8 10*3/uL Normal 0.0-0.8 [facility] Comment on above: Performed By: #### C BC #### [address] #### RPR W RFX #### [facility] , Automated eosinophil %Ordere d By: EDE WAY on 02-13-2023 Eosinophils/100 WBC (Bld) 0.6 % Normal . [facility] Comment on above: Performed By: #### C BC #### [address] #### RPR W RFX #### [facility] , Automated eosinophil countOr dered By: EDE WAY on 02-13-2023 Eosinophils (Bld) [#/Vol] 0.1 10*3/uL Normal 0.0-0.45 [facility] Comment on above: Performed By: #### C BC #### [address] #### RPR W RFX #### [facility] , Automated erythrocytes count in urine sediment (number/area)Ordered By: EDE WAY on 02-13-2023 RBC Auto (Urine sed) [#/Area] Innumerable [HPF] 0-4 [facility] Automated leukocytes count i n urine sediment (number/area)Ordered By: EDE WAY on 02-13-2023 WBC Auto (Urine sed) [#/Area] 5-9 [HPF] 0-4 [facility] Automated monocyte %Ordered By: EDE WAY on 02-13-2023 Monocytes/100 WBC (Bld) 8.8 % Normal . [facility] Comment on above: Performed By: #### C BC #### [address] #### RPR W RFX #### [facility] , Automated neutrophil %Ordere d By: EDE WAY on 02-13-2023 Neutrophils/100 WBC (Bld) 73.7 % Normal . [facility] Comment on above: Performed By: #### C BC #### [place] [address] [place] #### RPR W RFX #### [facility] , Automated urine color determ inationOrdered By: EDE WAY on 02-13-2023 Color (U) [place] Critically abnormal Yellow [facility] Comment on above: Order Comment: Name Collection Type:: Voided Performed By: #### C USTB #### [address] Bilirubin Test strip Ql (U)O rdered By: EDE WAY on 02-13-2023 Bilirubin Ql (U) Negative Negative [facility] Complete Blood Count Auto Di ffon 12-30-2023 Mean Corpuscular HGB Conc 33.8 g/dL Normal 32.0-35.0 [facility] Comment on above: Performed By: #### C BC #### [address] #### RPR W RFX #### [facility] , NRBC% 0.1 /100{WBC} Normal 0-0.5 [facility] Comment on above: Performed By: #### C BC #### [address] #### RPR W RFX #### [facility] , Dipstick and Microscopicon 1 Appearance (U) Clear Normal Clear [facility] Comment on above: Order Comment: Name Collection Type:: Voided Performed By: #### C USTB #### [address] Bacteria,Urine None Seen Normal None Seen [facility] Comment on above: Order Comment: Name Collection Type:: Voided Performed By: #### C USTB #### [address] Bilirubin,Urine Negative Normal Negative [facility] Comment on above: Order Comment: Name Collection Type:: Voided Performed By: #### C USTB #### [address] Glucose Ql (U) Normal Normal Normal [facility] Comment on above: Order Comment: Name Collection Type:: Voided Performed By: #### C USTB #### [place] [address] [place] Hyaline Casts,Urine 0-8 Normal 0-8 [facility] Comment on above: Order Comment: Name Collection Type:: Voided Result Comment: PERF ORMED BY: [place] [address] PATHOLOGIST C4 PLANNER ALLA OROZCO M.D. Performed By: #### C USTB #### [place] [address] [place] Ketones Ql (U) Trace High Negative [facility] Comment on above: Order Comment: Name Collection Type:: Voided Performed By: #### C USTB #### [address] Leukocyte esterase Test strip Ql (U) 1+ High Negative [facility] Comment on above: Order Comment: Name Collection Type:: Voided Performed By: #### C USTB #### [place] [address] [place] Nitrite,Urine Negative Normal Negative [facility] Comment on above: Order Comment: Name Collection Type:: Voided Performed By: #### C USTB #### [address] Occult Blood,Urine 3+ High Negative [facility] Comment on above: Order Comment: Name Collection Type:: Voided Result Comment: PERF ORMED BY: [place] [address] PATHOLOGIST C4 PLANNER ALLA OROZCO M.D. Performed By: #### C USTB #### [place] [address] [place] RBC,Urine Innumerable High 0-4 [facility] Comment on above: Order Comment: Name Collection Type:: Voided Performed By: #### C USTB #### [place] [address] [place] Specificy Dairy,Urine 1.015 Normal 1.001-1.03 0 [facility] Comment on above: Order Comment: Name Collection Type:: Voided Performed By: #### C USTB #### [place] [address] [place] Squamous Epithelial Cell,Urine 3-4 High 0-2 [facility] Comment on above: Order Comment: Name Collection Type:: Voided Performed By: #### C USTB #### [place] [address] [place] Urobilinogen,Urine Normal Normal Normal [facility] Comment on above: Order Comment: Name Collection Type:: Voided Performed By: #### C USTB #### [address] WBC,Urine 5-9 High 0-4 [facility] Comment on above: Order Comment: Name Collection Type:: Voided Performed By: #### C USTB #### [address] Erythrocyte distribution wid th [Ratio] by Automated countOrdered By: EDE WAY on 02-13-2023 Erythrocyte distribution width (RBC) [Ratio] 16.2 % High 11.9-15.3 [facility] Comment on above: Performed By: #### C BC #### [address] #### RPR W RFX #### [facility] , Erythrocytes [#/volume] in B lood by Automated countOrdered By: EDE WAY on 02-13-2023 RBC (Bld) [#/Vol] 4.38 10*6/uL Normal 3.60-5.00 [facility] Comment on above: Performed By: #### C BC #### [address] #### RPR W RFX #### [facility] , Hematocrit [Volume Fraction] of Blood by Automated countOrdered By: EDE WAY on 02-13-2023 Hematocrit (Bld) [Volume fraction] 33.2 % Low 34.0-46.4 [facility] Comment on above: Performed By: #### C BC #### [address] #### RPR W RFX #### [facility] , Hemoglobin [Mass/volume] in BloodOrdered By: EDE WAY on 02-13-2023 Hemoglobin (Bld) [Mass/Vol] 11.2 g/dL Low 11.8-15.4 [facility] Comment on above: Performed By: #### C BC #### [facility] [address] #### RPR W RFX #### [facility] , Ketones Auto test strip (U) [Mass/Vol]Ordered By: EDE WAY on 02-13-2023 Ketones (U) [Mass/Vol] Trace Negative [facility] Marco 02-13-2023 L ------ Specimen: [id number] Received: 02/16/23 Status: NICK Forbes Num: [id number] Spec Type: Surgical Subm Dr: EDE WAY MD Tissues: A Placenta - 3rd Trimester (Greater than 28 weeks) (PLACENTA) Procedures: HE/3, Gross/Micro L5 Age/ Patient Sex Location Account Attending Physician Rosette Alba / [id number] EDE WAY MD SPEC NUM: [id number] RECD: 02/16/23 STATUS: NICK FORBES NUM: [id number] MAURY: 02/13/23- SUBM DR: EDE WAY MD ENTERED: 02/16/[address] [facility] [address]: CARLOS TYPE: Surgical DEPT: S ORDERED: [...] less than 5% of the cut surface. Aeronautical Engineering Officer sections are submitted in 3 cassettes as follows: A1 - cord and central disc A2 - membranes and marginal disc Specimen: [id number] Received: 02/16/23 Status: NICK Forbes Num: [id number] Spec Type: Surgical Subm Dr: EDE WAY MD Tissues: A Placenta - 3rd Trimester (Greater than 28 weeks) (PLACENTA) Procedures: VENKATESH/Becca Keller/Micro L5 Patient: Arun Albaperlita Torres [id number] (Continued) Specimen: [id number] Received: 02/16/23 (Continued) Gross Description (Continued) Signed (signature on file) Ishan Richardson MD 02/17/232199 Specimen: [id number] Received: 02/16/23 Status: NICK Forbes Num: [id number] Spec Type: Surgical Subm Dr: EDE WAY MD Tissues: A Placenta - 3rd Trimester (Greater than 28 weeks) (PLACENTA) Procedures: HE/3, Gross/Micro L5 Patient: Rosette Alba [id number] (Continued) Specimen: [id number] Received: 02/16/23 (Continued) Gross Description (Continued) A3 - Central lesional area Microscopic Description Three H E slides reviewed. The microscopic examination confirms the diagnosis. CPT Codes 57490 Specimen: [id number] Received: 02/16/23 Status: NICK Forbes Num: [id number] Spec Type: Surgical Subm Dr: EDE WAY MD Tissues: A Placenta - 3rd Trimester (Greater than 28 weeks) (PLACENTA) Procedures: HE/3, Gross/Micro L5 Patient: Rosette Alba [id number] (Continued) Signed (signature on file) Ishan Richardson MD 02/17/23 2200 Normal [facility] Laboratory - UrinalysisOrder ed By: EDE WAY on 02-13-2023 Hyaline casts LM Ql (Urine sed) 0-8 [LPF] 0-8 [facility] Leukocytes [#/volume] correc kee for nucleated erythrocytes in Blood by Automated counOrdered By: EDE WAY on 02-13-2023 WBC corrected for nucl RBC Auto (Bld) [#/Vol] 9.1 10*3/uL 3.8-11.6 [facility] Leukocytes [#/volume] in Blo od by Automated countOrdered By: EDE WAY on 02-13-2023 WBC (Bld) [#/Vol] 9.1 10*3/uL Normal 3.8-11.6 [facility] Comment on above: Performed By: #### C BC #### [address] #### RPR W RFX #### [facility] , Lymphocytes [#/volume] in Bl ood by Automated countOrdered By: EDE WAY on 02-13-2023 Lymphocytes (Bld) [#/Vol] 1.5 10*3/uL Normal 1.00-4.8 [facility] Comment on above: Performed By: #### C BC #### [address] #### RPR W RFX #### [facility] , Lymphocytes/100 leukocytes i n Blood by Automated countOrdered By: EDE WAY on 02-13-2023 Lymphocytes/100 WBC (Bld) 16.2 % Normal . [facility] Comment on above: Performed By: #### C BC #### [address] #### RPR W RFX #### [facility] , MCH [Entitic mass] by Automa kee countOrdered By: EDE WAY on 02-13-2023 MCH (RBC) [Entitic mass] 25.6 pg Normal 24.7-34.3 [facility] Comment on above: Performed By: #### C BC #### [place] [address] [place] #### RPR W RFX #### [facility] , MCHC Auto (RBC) [Mass/Vol]Or dered By: EDE WAY on 02-13-2023 MCHC (RBC) [Mass/Vol] 33.8 g/dL 32.0-35.0 [facility] MCV [Entitic volume] by Auto mated countOrdered By: EDE WAY on 02-13-2023 MCV (RBC) [Entitic vol] 75.7 fL Low 80-100 [facility] Comment on above: Performed By: #### C BC #### [place] [address] [place] #### RPR W RFX #### [facility] , Neutrophils [#/volume] in Bl ood by Automated countOrdered By: EDE WAY on 02-13-2023 Neutrophils (Bld) [#/Vol] 6.7 10*3/uL Normal 1.8-7.7 [facility] Comment on above: Performed By: #### C BC #### [facility] [address] [place] [address] #### RPR W RFX #### [facility] , Nitrite Test strip Ql (U)Ord ered By: EDE AWY on 02-13-2023 Nitrite Ql (U) Negative Negative [facility] Nucleated erythrocytes [Pres ence] in Blood by Automated countOrdered By: EDE WAY on 02-13-2023 Nucleated RBC Auto Ql (Bld) 0.1 /100{WBC} 0-0.5 [facility] Platelet mean volume [Entiti c volume] in Blood by Automated countOrdered By: EDE WAY on 02-13-2023 Platelet mean volume (Bld) [Entitic vol] 8.5 fL Normal 6.3-10.7 [facility] Comment on above: Performed By: #### C BC #### [facility] [address] [place] [address] #### RPR W RFX #### [facility] , Platelets [#/volume] in Bloo d by Automated countOrdered By: EDE WAY on 02-13-2023 Platelets (Bld) [#/Vol] 178 10*3/uL Normal 150-450 [facility] Comment on above: Performed By: #### C BC #### [facility] [address] [place] [address] #### RPR W RFX #### [facility] , RPR w/rfx to Quant TP Abson 02-13-2023 RPR, Rfx Quant RPR Non-Reactive Normal Non Reactive [facility] Comment on above: Result Comment: Perf ormed at: - [facility] [address] [id number] Human Resources Team Member: Sam Lopez PhD, Phone: [phone] PERFORMED BY: [place] [address] PATHOLOGIST C4 PLANNER ALLA OROZCO M.D. Performed By: #### C BC #### [facility] [address] [place] [address] #### RPR W RFX #### [facility] , Reagin Ab [Presence] in Seru m by RPROrdered By: EDE WAY on 02-13-2023 Reagin Ab RPR Ql (S) Non-Reactive Non Reactive [facility] Comment on above: Performed at: [address] Director: Sam Lopez PhD, Phone: [phone] Specific gravity Auto test s trip (U) [Rel density]Ordered By: EDE WAY on 02-13-2023 Specific gravity (U) [Rel density] 1.015 1.001-1.03 0 [facility] Squamous epithelial cells de tection in urine sediment by light microscopyOrdered By: EDE WAY on 02-13-2023 Epithelial cells.squamous LM Ql (Urine sed) 3-4 [HPF] 0-2 [facility] Urine Cultureon 02-13-2023 Bacteria identified Cx Nom (U) No Growth 2 Days PERFORMED BY: [place] [address] PATHOLOGIST C4 PLANNER ALLA OROZCO M.D. Normal [facility] Comment on above: Performed By: #### C US #### [address] Urine bacteria detection by automated methodOrdered By: EDE WAY on 02-13-2023 Bacteria Auto Ql (U) None seen None Seen [facility] Urine clarity by refractomet ry automatedOrdered By: EDE WAY on 02-13-2023 Clarity Refractometry automated (U) Clear Clear [facility] Urine culture routineOrdered By: EDE WAY on 02-13-2023 Bacteria identified Cx Nom (U) No Growth 2 Days [facility] Urine glucose measurement by automated test strip (mass/volume)Ordered By: EDE WAY on 02-13-2023 Glucose Auto test strip (U) [Mass/Vol] Normal mg/dL Normal [facility] Urine hemoglobin detection b y automated test stripOrdered By: EDE WAY on 02-13-2023 Hemoglobin Auto test strip Ql (U) 3+ Negative [facility] Urine leukocyte esterase det ection by automated test stripOrdered By: EDE WAY on 02-13-2023 Leukocyte esterase Auto test strip Ql (U) 1+ Negative [facility] Urine pH measurement by auto mated test stripOrdered By: EDE WAY on 02-13-2023 pH (U) 6.5 [pH] Normal 5.0-9.0 [facility] Comment on above: Order Comment: Name Collection Type:: Voided Performed By: #### C USTB #### [facility] [address] [place] [address] Urine protein measurement by automated test strip (mass/volume)Ordered By: EDE WAY on 02-13-2023 Protein (U) [Mass/Vol] 30 mg/dL High Negative [facility] Comment on above: Order Comment: Name Collection Type:: Voided Performed By: #### C USTB #### [facility] [address] [place] [address] Urobilinogen Auto test strip (U) [Mass/Vol]Ordered By: EDE WAY on 02-13-2023 Urobilinogen (U) [Mass/Vol] Normal mg/dL Normal [facility] Amphetamine Screen Ql (U)Ord ered By: Radha Molina on 02-01-2023 Amphetamines Ql (U) Negative Negative [facility] Automated erythrocytes count in urine sediment (number/area)Ordered By: Radha Molina on 02-01-2023 RBC Auto (Urine sed) [#/Area] 3-4 [HPF] 0-4 [facility] Automated leukocytes count i n urine sediment (number/area)Ordered By: Radha Molina on 02-01-2023 WBC Auto (Urine sed) [#/Area] 10-19 [HPF] 0-4 [facility] Automated urine color determ inationOrdered By: Radha Molina on 02-01-2023 Color (U) Yellow Normal Yellow [facility] Comment on above: Order Comment: Name Collection Type:: Clean-Voided Midstream Performed By: #### C USTB #### [facility] [address] [place] [address] Automated urine sediment esteban cium oxalate crystal count by microscopy (number/high powOrdered By: Radha Molina on 02-01-2023 Calcium oxalate crystals LM.HPF (Urine sed) [#/Area] 3+ [HPF] [facility] Barbiturates [Presence] in U rine by Screen methodOrdered By: Radha Molina on 02-01-2023 Barbiturates Screen Ql (U) Negative Negative [facility] Benzodiazepines Screen Ql (U )Ordered By: Radha Molina on 02-01-2023 Benzodiazepines Ql (U) Negative Negative [facility] Benzoylecgonine [Presence] i n Urine by Screen methodOrdered By: Radha Molina on 02-01-2023 Benzoylecgonine Screen Ql (U) Negative Negative [facility] Bilirubin Test strip Ql (U)O rdered By: Radha Molina on 02-01-2023 Bilirubin Ql (U) Negative Negative [facility] Dipstick and Microscopicon 1 04-04-2022 Appearance (U) Cloudy Critically abnormal Clear [facility] Comment on above: Order Comment: Name Collection Type:: Clean-Voided Midstream Performed By: #### C USTB #### [place] [address] [place] Bacteria,Urine 1+ High None Seen [facility] Comment on above: Order Comment: Name Collection Type:: Clean-Voided Midstream Performed By: #### C USTB #### [place] [address] [place] Bilirubin,Urine Negative Normal Negative [facility] Comment on above: Order Comment: Name Collection Type:: Clean-Voided Midstream Performed By: #### C USTB #### [place] [address] [place] Calcium Oxalate Crystals,Urine 3+ Normal [facility] Comment on above: Order Comment: Name Collection Type:: Clean-Voided Midstream Performed By: #### C USTB #### [address] Glucose Ql (U) Normal Normal Normal [facility] Comment on above: Order Comment: Name Collection Type:: Clean-Voided Midstream Performed By: #### C USTB #### [address] Hyaline Casts,Urine 0-8 Normal 0-8 [facility] Comment on above: Order Comment: Name Collection Type:: Clean-Voided Midstream Result Comment: PERF ORMED BY: [place] [address] PATHOLOGIST C4 PLANNER ALLA OROZCO M.D. Performed By: #### C USTB #### [address] Ketones Ql (U) Trace High Negative [facility] Comment on above: Order Comment: Name Collection Type:: Clean-Voided Midstream Performed By: #### C USTB #### [address] Leukocyte esterase Test strip Ql (U) 2+ High Negative [facility] Comment on above: Order Comment: Name Collection Type:: Clean-Voided Midstream Performed By: #### C USTB #### [place] [address] [place] Nitrite,Urine Negative Normal Negative [facility] Comment on above: Order Comment: Name Collection Type:: Clean-Voided Midstream Performed By: #### C USTB #### [place] [address] [place] Occult Blood,Urine Negative Normal Negative [facility] Comment on above: Order Comment: Name Collection Type:: Clean-Voided Midstream Result Comment: PERF ORMED BY: [place] [address] PATHOLOGIST C4 PLANNER ALLA OROZCO M.D. Performed By: #### C USTB #### [address] Othe Crystals,Urine None Seen Normal [facility] Comment on above: Order Comment: Name Collection Type:: Clean-Voided Midstream Performed By: #### C USTB #### [address] Protein,Urine Trace High Negative [facility] Comment on above: Order Comment: Name Collection Type:: Clean-Voided Midstream Performed By: #### C USTB #### [address] RBC,Urine 3-4 Normal 0-4 [facility] Comment on above: Order Comment: Name Collection Type:: Clean-Voided Midstream Performed By: #### C USTB #### [address] Specificy Dairy,Urine 1.025 Normal 1.001-1.03 0 [facility] Comment on above: Order Comment: Name Collection Type:: Clean-Voided Midstream Performed By: #### C USTB #### [place] [address] [place] Squamous Epithelial Cell,Urine 10-19 High 0-2 [facility] Comment on above: Order Comment: Name Collection Type:: Clean-Voided Midstream Performed By: #### C USTB #### [place] [address] [place] Urobilinogen,Urine Normal Normal Normal [facility] Comment on above: Order Comment: Name Collection Type:: Clean-Voided Midstream Performed By: #### C USTB #### [place] [address] [place] WBC,Urine 10-19 High 0-4 [facility] Comment on above: Order Comment: Name Collection Type:: Clean-Voided Midstream Performed By: #### C USTB #### [address] Ketones Auto test strip (U) [Mass/Vol]Ordered By: Radha Molina on 02-01-2023 Ketones (U) [Mass/Vol] Trace Negative Fi [facility] - UrinalysisOrder ed By: Radha Molina on 02-01-2023 Hyaline casts LM Ql (Urine sed) 0-8 [LPF] 0-8 [facility] Nitrite Test strip Ql (U)Ord ered By: Radha Molina on 02-01-2023 Nitrite Ql (U) Negative Negative [facility] OB Urine Drug Screen (NO THC )on 02-01-2023 Amphetamine Screen,Urine Negative Normal Negative [facility] Comment on above: Performed By: #### C USTB #### [address] Barbiturate Screen,Urine Negative Normal Negative [facility] Comment on above: Performed By: #### C USTB #### [place] [address] [place] Benzodiazepines Screen,Urine Negative Normal Negative [facility] Comment on above: Performed By: #### C USTB #### [place] [address] [place] Cocaine Screen,Urine Negative Normal Negative [facility] Comment on above: Performed By: #### C USTB #### [place] [address] [place] Opiate Screen,Urine Negative Normal Negative [facility] Comment on above: Performed By: #### C USTB #### [place] [address] [place] Phencyclidine Screen, Urine Negative Normal Negative [facility] Comment on above: Result Comment: Thes e are unconfirmed results and should not be used for legal purposes. Drug Cut-Off Concentration: AMPH 1000 ng/mL FAVIOLA 200 ng/mL THA 200 ng/mL COCM 300 ng/mL OP 300 ng/mL PCP 25 ng/mL PERFORMED BY: [place] [address] PATHOLOGIST C4 PLANNER ALLA OROZCO M.D. Performed By: #### C USTB #### [address] [place] [address] [facility] Opiates [Presence] in Urine by Screen methodOrdered By: Radha Molina on 02-01-2023 Opiates Screen Ql (U) Negative Negative [facility] Phencyclidine Screen Ql (U)O rdered By: Radha Molina on 02-01-2023 Phencyclidine Ql (U) Negative Negative [facility] Comment on above: These are unconfirme d results and should not be used for legal purposes. Drug Cut-Off Concentration: AMPH 1000 ng/mL FAVIOLA 200 ng/mL THA 200 ng/mL COCM 300 ng/mL OP 300 ng/mL PCP 25 ng/mL Protein Auto test strip (U) [Mass/Vol]Ordered By: Radha Molina on 02-01-2023 Protein (U) [Mass/Vol] Trace mg/dL Negative F [facility] Specific gravity Auto test s trip (U) [Rel density]Ordered By: Radha Molina on 02-01-2023 Specific gravity (U) [Rel density] 1.025 1.001-1.03 0 [facility] Squamous epithelial cells de tection in urine sediment by light microscopyOrdered By: Radha Molina on 02-01-2023 Epithelial cells.squamous LM Ql (Urine sed) 10-19 [HPF] 0-2 [facility] Urine Cultureon 02-01-2023 Bacteria identified Cx Nom (U) <9,000 colonies/ml mixed bacterial skin contaminants 2 Days PERFORMED BY: [place] [address] PATHOLOGIST C4 PLANNER ALAL OROZCO M.D. Normal [facility] Comment on above: Performed By: #### C USTB #### [facility] [address] [place] [address] Urine bacteria detection by automated methodOrdered By: Radha Molina on 02-01-2023 Bacteria Auto Ql (U) 1+ None Seen [facility] Urine clarity by refractomet ry automatedOrdered By: Radha Molina on 02-01-2023 Clarity Refractometry automated (U) Cloudy Clear [facility] Urine culture routineOrdered By: Radha Molina on 02-01-2023 Bacteria identified Cx Nom (U) 2 Days [facility] Urine glucose measurement by automated test strip (mass/volume)Ordered By: Radha Molina on 02-01-2023 Glucose Auto test strip (U) [Mass/Vol] Normal mg/dL Normal [facility] Urine hemoglobin detection b y automated test stripOrdered By: Radha Molina on 02-01-2023 Hemoglobin Auto test strip Ql (U) Negative Negative [facility] Urine leukocyte esterase det ection by automated test stripOrdered By: Radha Molina on 02-01-2023 Leukocyte esterase Auto test strip Ql (U) 2+ Negative [facility] Urine pH measurement by auto mated test stripOrdered By: Radha Molina on 02-01-2023 pH (U) 6.0 [pH] Normal 5.0-9.0 [facility] Comment on above: Order Comment: Name Collection Type:: Clean-Voided Midstream Performed By: #### C USTB #### [address] Urine sediment crystal ident ification by light microscopyOrdered By: Radha Molina on 02-01-2023 Crystals LM Nom (Urine sed) None seen [HPF] [facility] Urobilinogen Auto test strip (U) [Mass/Vol]Ordered By: Radha Molina on 02-01-2023 Urobilinogen (U) [Mass/Vol] Normal mg/dL Normal [facility] Amphetamine Screen Ql (U)Ord ered By: MARY KAY CANTU on 01-30-2023 Amphetamines Ql (U) Negative Negative [facility] Automated erythrocytes count in urine sediment (number/area)Ordered By: MARY KAY CANTU on 01-30-2023 RBC Auto (Urine sed) [#/Area] 0-1 [HPF] 0-4 [facility] Automated leukocytes count i n urine sediment (number/area)Ordered By: MARY KAY CANTU on 01-30-2023 WBC Auto (Urine sed) [#/Area] 3-4 [HPF] 0-4 [facility] Automated urine color determ inationOrdered By: MARY KAY CANTU on 01-30-2023 Color (U) Yellow Normal Yellow [facility] Comment on above: Order Comment: Name Collection Type:: Clean-Voided Midstream Performed By: #### O BUDS, ADDONUAPLUS #### [facility] [address] [id number] [place] Barbiturates [Presence] in U rine by Screen methodOrdered By: MARY KAY NATAPRINDIRARA on 01-30-2023 Barbiturates Screen Ql (U) Negative Negative [facility] Benzodiazepines Screen Ql (U )Ordered By: MARY KAY NATAPRAWIRA on 01-30-2023 Benzodiazepines Ql (U) Negative Negative [facility] Benzoylecgonine [Presence] i n Urine by Screen methodOrdered By: MARY KAY NATAPRANGIE on 01-30-2023 Benzoylecgonine Screen Ql (U) Negative Negative [facility] Bilirubin Test strip Ql (U)O rdered By: MARY KAY NATAPRANGIE on 01-30-2023 Bilirubin Ql (U) Negative Negative [facility] Dipstick and Microscopicon 1 04-02-2022 Appearance (U) Clear Normal Clear [facility] Comment on above: Order Comment: Name Collection Type:: Clean-Voided Midstream Performed By: #### O BUDS, ADDONUAPLUS #### [facility] [address] [place] [address] [place] Bacteria,Urine None Seen Normal None Seen [facility] Comment on above: Order Comment: Name Collection Type:: Clean-Voided Midstream Performed By: #### O BUDS, ADDONUAPLUS #### [facility] [address] [id number] [place] Bilirubin,Urine Negative Normal Negative [facility] Comment on above: Order Comment: Name Collection Type:: Clean-Voided Midstream Performed By: #### O BUDS, ADDONUAPLUS #### [facility] [address] [id number] [place] Glucose Ql (U) Normal Normal Normal [facility] Comment on above: Order Comment: Name Collection Type:: Clean-Voided Midstream Performed By: #### O BUDS, ADDONUAPLUS #### [place] [address] [place] Hyaline Casts,Urine 0-8 Normal 0-8 [facility] Comment on above: Order Comment: Name Collection Type:: Clean-Voided Midstream Result Comment: PERF ORMED BY: [place] [address] PATHOLOGIST C4 PLANNER ALLA OROZCO M.D. Performed By: #### O BUDS, ADDONUAPLUS #### [address] Ketones Ql (U) Negative Normal Negative [facility] Comment on above: Order Comment: Name Collection Type:: Clean-Voided Midstream Performed By: #### O BUDS, ADDONUAPLUS #### [address] Leukocyte esterase Test strip Ql (U) 2+ High Negative [facility] Comment on above: Order Comment: Name Collection Type:: Clean-Voided Midstream Performed By: #### O BUDS, ADDONUAPLUS #### [place] [address] [place] Nitrite,Urine Negative Normal Negative [facility] Comment on above: Order Comment: Name Collection Type:: Clean-Voided Midstream Performed By: #### O BUDS, ADDONUAPLUS #### [place] [address] [place] Occult Blood,Urine Negative Normal Negative [facility] Comment on above: Order Comment: Name Collection Type:: Clean-Voided Midstream Result Comment: PERF ORMED BY: [place] [address] PATHOLOGIST C4 PLANNER ALLA OROZCO M.D. Performed By: #### O BUDS, ADDONUAPLUS #### [place] [address] [place] Protein,Urine Negative Normal Negative [facility] Comment on above: Order Comment: Name Collection Type:: Clean-Voided Midstream Performed By: #### O BUDS, ADDONUAPLUS #### [place] [address] [place] RBC LM.HPF (Urine sed) [#/Area] 0 /[HPF] Normal 0-4 [facility] Comment on above: Order Comment: Name Collection Type:: Clean-Voided Midstream Performed By: #### O BUDS, ADDONUAPLUS #### [address] Specificy Dairy,Urine 1.017 Normal 1.001-1.03 0 [facility] Comment on above: Order Comment: Name Collection Type:: Clean-Voided Midstream Performed By: #### O BUDS, ADDONUAPLUS #### [address] Squamous Epithelial Cell,Urine 1-2 Normal 0-2 [facility] Comment on above: Order Comment: Name Collection Type:: Clean-Voided Midstream Performed By: #### O BUDS, ADDONUAPLUS #### [address] Urobilinogen,Urine Normal Normal Normal [facility] Comment on above: Order Comment: Name Collection Type:: Clean-Voided Midstream Performed By: #### O BUDS, ADDONUAPLUS #### [address] WBC,Urine 3-4 Normal 0-4 [facility] Comment on above: Order Comment: Name Collection Type:: Clean-Voided Midstream Performed By: #### O BUDS, ADDONUAPLUS #### [address] Ketones Auto test strip (U) [Mass/Vol]Ordered By: MARY KAY CANTU on 01-30-2023 Ketones (U) [Mass/Vol] Negative Negative [facility] - UrinalysisOrder ed By: MARY KAY CANTU on 01-30-2023 Hyaline casts LM Ql (Urine sed) 0-8 [LPF] 0-8 [facility] Nitrite Test strip Ql (U)Ord ered By: MARY KAY CANTU on 01-30-2023 Nitrite Ql (U) Negative Negative [facility] OB Urine Drug Screen (NO THC )on 01-30-2023 Amphetamine Screen,Urine Negative Normal Negative [facility] Comment on above: Performed By: #### O BUDS, ADDONUAPLUS #### [address] Barbiturate Screen,Urine Negative Normal Negative [facility] Comment on above: Performed By: #### O BUDS, ADDONUAPLUS #### [address] Benzodiazepines Screen,Urine Negative Normal Negative [facility] Comment on above: Performed By: #### O BUDS, ADDONUAPLUS #### [address] Cocaine Screen,Urine Negative Normal Negative [facility] Comment on above: Performed By: #### O BUDS, ADDONUAPLUS #### [address] Opiate Screen,Urine Negative Normal Negative [facility] Comment on above: Performed By: #### O BUDS, ADDONUAPLUS #### [address] Phencyclidine Screen, Urine Negative Normal Negative [facility] Comment on above: Result Comment: Thes e are unconfirmed results and should not be used for legal purposes. Drug Cut-Off Concentration: AMPH 1000 ng/mL FAVIOLA 200 ng/mL THA 200 ng/mL COCM 300 ng/mL OP 300 ng/mL PCP 25 ng/mL PERFORMED BY: [place] [address] PATHOLOGIST C4 PLANNER ALLA OROZCO M.D. Performed By: #### O BUDS, ADDONUAPLUS #### [address] Opiates [Presence] in Urine by Screen methodOrdered By: MARY KAY CANTU on 01-30-2023 Opiates Screen Ql (U) Negative Negative [facility] Phencyclidine Screen Ql (U)O rdered By: MARY KAY CANTU on 01-30-2023 Phencyclidine Ql (U) Negative Negative [facility] Comment on above: These are unconfirme d results and should not be used for legal purposes. Drug Cut-Off Concentration: AMPH 1000 ng/mL FAVIOLA 200 ng/mL THA 200 ng/mL COCM 300 ng/mL OP 300 ng/mL PCP 25 ng/mL Protein Auto test strip (U) [Mass/Vol]Ordered By: MARY KAY CANTU on 01-30-2023 Protein (U) [Mass/Vol] Negative [facility] Specific gravity Auto test s trip (U) [Rel density]Ordered By: MARY KAY CANTU on 01-30-2023 Specific gravity (U) [Rel density] 1.017 1.001-1.03 0 [facility] Squamous epithelial cells de tection in urine sediment by light microscopyOrdered By: MARY KAY CANTU on 01-30-2023 Epithelial cells.squamous LM Ql (Urine sed) 1-2 [HPF] 0-2 [facility] Urine bacteria detection by automated methodOrdered By: MARY KAY CANTU on 01-30-2023 Bacteria Auto Ql (U) None seen None Seen [facility] Urine clarity by refractomet ry automatedOrdered By: MARY KAY CANTU on 01-30-2023 Clarity Refractometry automated (U) Clear Clear [facility] Urine glucose measurement by automated test strip (mass/volume)Ordered By: MARY KAY CANTU on 01-30-2023 Glucose Auto test strip (U) [Mass/Vol] Normal mg/dL Normal [facility] Urine hemoglobin detection b y automated test stripOrdered By: MARY KAY CANTU on 01-30-2023 Hemoglobin Auto test strip Ql (U) Negative Negative [facility] Urine leukocyte esterase det ection by automated test stripOrdered By: MARY KAY CANTU on 01-30-2023 Leukocyte esterase Auto test strip Ql (U) 2+ Negative [facility] Urine pH measurement by auto mated test stripOrdered By: MARY KAY CANTU on 01-30-2023 pH (U) 6.5 [pH] Normal 5.0-9.0 [facility] Comment on above: Order Comment: Name Collection Type:: Clean-Voided Midstream Performed By: #### O BUDS, ADDONUAPLUS #### [address] [place] [id number] [facility] Urobilinogen Auto test strip (U) [Mass/Vol]Ordered By: MARY KAY CANTU on 01-30-2023 Urobilinogen (U) [Mass/Vol] Normal mg/dL Normal [facility] S. agalactiae Org specific c x Ql (Unsp spec)Ordered By: Radha Molina on 01-05-2023 Group B Streptococcus Culture Strep. agalactiae Grp B [facility] Strep B Cultureon 01-05-2023 Strep B Culture ORGANISM: Strep. agalactiae Grp B (O:B) PERFORMED BY: [place] [address] PATHOLOGIST C4 PLANNER ALLA OROZCO M.D. Normal [facility] Comment on above: Performed By: #### C USTB #### [address] Glucose Tolerance 3 Houron 02-21-2022 Glucose Tolerance 3 Hour Normal [facility] Comment on above: Result Comment: FAST ING 88 Col: 12/22/22 0803 1HR GLU 146 Col: 12/22/22 1017 2HR GLU 126 Col: 12/22/22 1117 3HR GLU 144 Col: 12/22/22 1217 NON-GESTATIONAL GESTATIONAL FASTING 70-100 < 92 1 HOUR < 200 < 180 2 HOUR < 140 < 153 3 HOUR NOT ESTABLISHED < 140 PERFORMED BY: [place] [address] PATHOLOGIST C4 PLANNER ALLA OROZCO M.D. Performed By: #### G TT3 #### [address] [place] [id number] [facility] Serum or plasma glucose tole nabeel 3 hours panelOrdered By: Radha Molina on 12-22-2022 Glucose tolerance 3 hours panel See comment [facility] Comment on above: FASTING 88 Col: 1109/06 0803 1HR GLU 146 Col: 12/22/22 1017 2HR GLU 126 Col: 12/22/22 1117 3HR GLU 144 Col: 12/22/22 1217 fibronectinOrdered By: Radha Molina on 12-08-2022 Fibronectin. (Vag fld) [Mass/Vol] Negative Negative [facility] Alanine aminotransferase [En zymatic activity/volume] in Serum or PlasmaOrdered By: Nataly Toure on 12-03-2022 ALT [Catalytic activity/Vol] 7 U/L 7-52 [facility] Albumin [Mass/volume] in Ser um or Plasma by Bromocresol green (BCG) dye binding methoOrdered By: Nataly Toure on 12-03-2022 Albumin BCG dye [Mass/Vol] 3.4 g/dL 3.5-5.7 [facility] Alkaline phosphatase [Enzyma tic activity/volume] in Serum or PlasmaOrdered By: Nataly Toure on 12-03-2022 ALP [Catalytic activity/Vol] 79 U/L 34-104 [facility] Aspartate aminotransferase [ Enzymatic activity/volume] in Serum or PlasmaOrdered By: Nataly Toure on 12-03-2022 AST [Catalytic activity/Vol] 9 U/L 13-39 [facility] Basophils Auto (Bld) [#/Vol] Ordered By: Nataly Toure on 12-03-2022 Basophils (Bld) [#/Vol] 0.0 10*3/uL 0.0-0.2 [facility] Basophils/100 WBC Auto (Bld) Ordered By: Nataly Toure on 12-03-2022 Basophils/100 WBC (Bld) 0.1 % . [facility] Bilirubin.total [Mass/volume ] in Serum or PlasmaOrdered By: Nataly Toure on 12-03-2022 Bilirubin [Mass/Vol] 0.2 mg/dL 0.3-1.0 [facility] Calcium [Mass/volume] in Ser um or PlasmaOrdered By: Nataly Toure on 12-03-2022 Calcium [Mass/Vol] 8.9 mg/dL 8.6-10.3 [facility] Carbon dioxide, total [Moles /volume] in Serum or PlasmaOrdered By: Nataly Toure on 12-03-2022 CO2 [Moles/Vol] 21.9 mmol/L 21.0-31.0 [facility] Chloride [Moles/volume] in S rosa or PlasmaOrdered By: Nataly Toure on 12-03-2022 Chloride [Moles/Vol] 102 mmol/L 98-107 [facility] Creatinine [Mass/volume] in Serum or PlasmaOrdered By: Nataly Toure on 12-03-2022 Creatinine [Mass/Vol] 0.49 mg/dL 0.60-1.20 [facility] Eosinophils Auto (Bld) [#/Vo l]Ordered By: Nataly Toure on 12-03-2022 Eosinophils (Bld) [#/Vol] 0.0 10*3/uL 0.0-0.45 [facility] [facility] Eosinophils/100 WBC Auto (Bl d)Ordered By: Nataly Toure on 12-03-2022 Eosinophils/100 WBC (Bld) 0.3 % . [facility] Erythrocyte distribution wid th Auto (RBC) [Ratio]Ordered By: Nataly Toure on 12-03-2022 Erythrocyte distribution width (RBC) [Ratio] 14.4 % 11.9-15.3 [facility] Globulin Calc (S) [Mass/Vol] Ordered By: Nataly Toure on 12-03-2022 Globulin (S) [Mass/Vol] 3.3 g/dL [facility] Glucose [Mass/volume] in Ser um or PlasmaOrdered By: Nataly Toure on 12-03-2022 Glucose [Mass/Vol] 94 mg/dL 70-100 [facility] Comment on above: ADA recommended refe rence rangeRandom Glucose Reference Range is dependent on time and content of last meal. Glucose of more than 200 mg/dL in a nonstressed, ambulatory subject supports the diagnosis of Diabetes Mellitus. Hematocrit Auto (Bld) [Volum e fraction]Ordered By: Nataly Toure on 12-03-2022 Hematocrit (Bld) [Volume fraction] 33.8 % 34.0-46.4 [facility] Hemoglobin [Mass/volume] in BloodOrdered By: Nataly Toure on 12-03-2022 Hemoglobin (Bld) [Mass/Vol] 11.0 g/dL 11.8-15.4 [facility] Iron [Mass/volume] in Serum or PlasmaOrdered By: Nataly Toure on 12-03-2022 Iron [Mass/Vol] 38 ug/dL 50-212 [facility] Iron binding capacity [Mass/ volume] in Serum or PlasmaOrdered By: Nataly Toure on 12-03-2022 Iron binding capacity [Mass/Vol] 587 ug/dL 255-450 [facility] Iron saturation [Mass Fracti on] in Serum or PlasmaOrdered By: Nataly Toure on 12-03-2022 Iron saturation [Mass fraction] 6.5 % 20-50 [facility] Leukocytes [#/volume] correc kee for nucleated erythrocytes in Blood by Automated counOrdered By: Nataly Toure on 12-03-2022 WBC corrected for nucl RBC Auto (Bld) [#/Vol] 11.2 10*3/uL 3.8-11.6 [facility] Lymphocytes Auto (Bld) [#/Vo l]Ordered By: Nataly Toure on 12-03-2022 Lymphocytes (Bld) [#/Vol] 1.8 10*3/uL 1.00-4.8 [facility] Lymphocytes/100 WBC Auto (Bl d)Ordered By: Nataly Toure on 12-03-2022 Lymphocytes/100 WBC (Bld) 16.0 % . [facility] MCH Auto (RBC) [Entitic mass ]Ordered By: Natayl Toure on 12-03-2022 MCH (RBC) [Entitic mass] 26.0 pg 24.7-34.3 [facility] MCHC Auto (RBC) [Mass/Vol]Or dered By: Nataly Toure on 12-03-2022 MCHC (RBC) [Mass/Vol] 32.5 g/dL 32.0-35.0 [facility] MCV Auto (RBC) [Entitic vol] Ordered By: Nataly Toure on 12-03-2022 MCV (RBC) [Entitic vol] 80.1 fL 80-100 [facility] Magnesium [Mass/volume] in S rosa or PlasmaOrdered By: Nataly Toure on 12-03-2022 Magnesium [Mass/Vol] 1.7 mg/dL 1.9-2.7 [facility] Monocytes Auto (Bld) [#/Vol] Ordered By: Nataly Toure on 12-03-2022 Monocytes (Bld) [#/Vol] 0.8 10*3/uL 0.0-0.8 [facility] Monocytes/100 WBC Auto (Bld) Ordered By: Nataly Toure on 12-03-2022 Monocytes/100 WBC (Bld) 6.9 % . [facility] Neutrophils Auto (Bld) [#/Vo l]Ordered By: Nataly Toure on 12-03-2022 Neutrophils (Bld) [#/Vol] 8.6 10*3/uL 1.8-7.7 [facility] Neutrophils/100 WBC Auto (Bl d)Ordered By: Nataly Toure on 12-03-2022 Neutrophils/100 WBC (Bld) 76.7 % . [facility] No Panel InformationOrdered By: Nataly Toure on 12-03-2022 Estimated GFR (CKD-EPI) > 60.0 mL/Min [facility] Creatinine Clearance (Chem N/A [facility] Nucleated erythrocytes [Pres ence] in Blood by Automated countOrdered By: Nataly Toure on 12-03-2022 Nucleated RBC Auto Ql (Bld) 0.0 /100{WBC} 0-0.5 [facility] Platelet mean volume Auto (B ld) [Entitic vol]Ordered By: Nataly Toure on 12-03-2022 Platelet mean volume (Bld) [Entitic vol] 9.0 fL 6.3-10.7 [facility] Platelets Auto (Bld) [#/Vol] Ordered By: Nataly Toure on 12-03-2022 Platelets (Bld) [#/Vol] 205 10*3/uL 150-450 [facility] Potassium [Moles/volume] in Serum or PlasmaOrdered By: Nataly Toure on 12-03-2022 Potassium [Moles/Vol] 3.8 mmol/L 3.5-5.1 [facility] Protein [Mass/volume] in Ser um or PlasmaOrdered By: Nataly Toure on 12-03-2022 Protein [Mass/Vol] 6.7 g/dL 6.4-8.9 [facility] RBC Auto (Bld) [#/Vol]Ordere d By: Nataly Toure on 12-03-2022 RBC (Bld) [#/Vol] 4.22 10*6/uL 3.60-5.00 [facility] Serum or plasma albumin/glob ulin mass ratioOrdered By: Nataly Toure on 12-03-2022 Albumin/Globulin [Mass ratio] 1.0 {ratio} [facility] Serum or plasma anion gap de terminationOrdered By: Nataly Toure on 12-03-2022 Anion gap [Moles/Vol] 17.9 mmol/L 6.0-15.0 [facility] Sodium [Moles/volume] in Ser um or PlasmaOrdered By: Nataly Toure on 12-03-2022 Sodium [Moles/Vol] 138 mmol/L 136-145 [facility] Thyrotropin [Units/volume] i n Serum or PlasmaOrdered By: Nataly Toure on 12-03-2022 TSH Qn 2.65 m[IU]/L 0.45-5.33 [facility] Transferrin [Mass/volume] in Serum or PlasmaOrdered By: Nataly Toure on 12-03-2022 Transferrin [Mass/Vol] 419 mg/dL 203-362 [facility] Urea nitrogen [Mass/volume] in Serum or PlasmaOrdered By: Nataly Toure on 12-03-2022 Urea nitrogen [Mass/Vol] 11 mg/dL 7-25 [facility] WBC Auto (Bld) [#/Vol]Ordere d By: Nataly Toure on 12-03-2022 WBC (Bld) [#/Vol] 11.2 10*3/uL 3.8-11.6 [facility] Activated partial thrombopla stin time (aPTT) in platelet poor plasma by coagulation aOrdered By: Staci Ortiz on 12-01-2022 aPTT Coag (PPP) [Time] 26.8 s 25.1-36.5 [facility] Comment on above: A hematocrit value g reater than 55% may lead to inaccurate results in coagulation testing. Patients having hematocrit values >55% require a special collection tube for coagulation studies. Please contact the laboratory at [phone] for redraw instructions. Automated erythrocytes count in urine sediment (number/area)Ordered By: Staci Ortiz on 12-01-2022 RBC Auto (Urine sed) [#/Area] 0-1 [HPF] 0-4 [facility] Automated leukocytes count i n urine sediment (number/area)Ordered By: Staci Ortiz on 12-01-2022 WBC Auto (Urine sed) [#/Area] 3-4 [HPF] 0-4 [facility] Basophils Auto (Bld) [#/Vol] Ordered By: Staci Ortiz on 12-01-2022 Basophils (Bld) [#/Vol] 0.0 10*3/uL 0.0-0.2 [facility] Basophils/100 WBC Auto (Bld) Ordered By: Staci Ortiz on 12-01-2022 Basophils/100 WBC (Bld) 0.3 % . [facility] Bilirubin Test strip Ql (U)O rdered By: Staci Ortiz on 12-01-2022 Bilirubin Ql (U) Negative Negative [facility] COVID CepheidOrdered By: Noah Ortiz on 12-01-2022 SARS-CoV-2 (COVID-19) Ab IA Ql Negative Negative [facility] Comment on above: This is a duplicate [employer] Xpert Xpress CoV-2/Flu/RSV Plus RNA by RT-PCR result to be used for statistical tracking purpose only. COVID-19 Detected/Not Detect edOrdered By: Staci Ortiz on 12-01-2022 SARS-CoV-2 (COVID-19) RNA SVETLANA+non-probe Ql (Nph) Not detected Not Detecte [facility] Comment on above: This is a duplicate RP2.1 COVID (PCR) result to be used for statistical tracking purpose only. Calcium [Mass/volume] in Ser um or PlasmaOrdered By: Staci Ortiz on 12-01-2022 Calcium [Mass/Vol] 9.1 mg/dL 8.6-10.3 [facility] Carbon dioxide, total [Moles /volume] in Serum or PlasmaOrdered By: Staci Ortiz on 12-01-2022 CO2 [Moles/Vol] 22.4 mmol/L 21.0-31.0 [facility] Chloride [Moles/volume] in S rosa or PlasmaOrdered By: Staci Ortiz on 12-01-2022 Chloride [Moles/Vol] 102 mmol/L 98-107 [facility] Color Auto (U)Ordered By: Co urtkristofer Ortiz on 12-01-2022 Color (U) Yellow Yellow [facility] Creatinine [Mass/volume] in Serum or PlasmaOrdered By: Staci Ortiz on 12-01-2022 Creatinine [Mass/Vol] 0.51 mg/dL 0.60-1.20 [facility] Eosinophils Auto (Bld) [#/Vo l]Ordered By: Staci Ortiz on 12-01-2022 Eosinophils (Bld) [#/Vol] 0.0 10*3/uL 0.0-0.45 [facility] Eosinophils/100 WBC Auto (Bl d)Ordered By: Staci Ortiz on 12-01-2022 Eosinophils/100 WBC (Bld) 0.4 % . [facility] Erythrocyte distribution wid th Auto (RBC) [Ratio]Ordered By: Staci Ortiz on 12-01-2022 Erythrocyte distribution width (RBC) [Ratio] 14.5 % 11.9-15.3 [facility] Fibrin D-dimer [Presence] in Platelet poor plasma by Latex agglutinationOrdered By: Staci Ortiz on 12-01-2022 Fibrin D-dimer LA Ql (PPP) 231 ng/mL 0-243 [facility] Comment on above: The reference range [...] coagulation studies. Please contact the laboratory at [phone] for redraw instructions. Glucose [Mass/volume] in Ser um or PlasmaOrdered By: Staci Ortiz on 12-01-2022 Glucose [Mass/Vol] 88 mg/dL 70-100 [facility] Comment on above: ADA recommended refe rence rangeRandom Glucose Reference Range is dependent on time and content of last meal. Glucose of more than 200 mg/dL in a nonstressed, ambulatory subject supports the diagnosis of Diabetes Mellitus. HCG ( test) IA.rapi d Ql (U)Ordered By: Staci Ortiz on 12-01-2022 HCG ( test) Ql (U) Positive [facility] Hematocrit Auto (Bld) [Volum e fraction]Ordered By: Staci Ortiz on 12-01-2022 Hematocrit (Bld) [Volume fraction] 34.2 % 34.0-46.4 [facility] Hemoglobin [Mass/volume] in BloodOrdered By: Staci Ortiz on 12-01-2022 Hemoglobin (Bld) [Mass/Vol] 11.3 g/dL 11.8-15.4 [facility] INR in Platelet poor plasma by Coagulation assayOrdered By: Staci Ortiz on 12-01-2022 INR Coag (PPP) [Relative time] 0.9 {INR} [facility] Comment on above: INR Therapeutic Rang [...] on 12-01-2022 Ketones (U) [Mass/Vol] Negative Negative [facility] - UrinalysisOrder ed By: Staci Ortiz on 12-01-2022 Hyaline casts LM Ql (Urine sed) 0-8 [LPF] 0-8 [facility] Leukocytes [#/volume] correc kee for nucleated erythrocytes in Blood by Automated counOrdered By: Staci Ortiz on 12-01-2022 WBC corrected for nucl RBC Auto (Bld) [#/Vol] 12.1 10*3/uL 3.8-11.6 [facility] Lymphocytes Auto (Bld) [#/Vo l]Ordered By: Staci Ortiz on 12-01-2022 Lymphocytes (Bld) [#/Vol] 1.8 10*3/uL 1.00-4.8 [facility] Lymphocytes/100 WBC Auto (Bl d)Ordered By: Staci Ortiz on 12-01-2022 Lymphocytes/100 WBC (Bld) 14.9 % . [facility] MCH Auto (RBC) [Entitic mass ]Ordered By: Staci Ortiz on 12-01-2022 MCH (RBC) [Entitic mass] 26.4 pg 24.7-34.3 [facility] MCHC Auto (RBC) [Mass/Vol]Or dered By: Staci Ortiz on 12-01-2022 MCHC (RBC) [Mass/Vol] 33.1 g/dL 32.0-35.0 [facility] MCV Auto (RBC) [Entitic vol] Ordered By: Staci Ortiz on 12-01-2022 MCV (RBC) [Entitic vol] 79.7 fL 80-100 [facility] Monocyte distribution width [Entitic volume] in Blood by AutomatedOrdered By: Staci Ortiz on 12-01-2022 Monocyte distribution width Auto (Bld) [Entitic vol] 16.82 % 0.00-20.00 [facility] Monocytes Auto (Bld) [#/Vol] Ordered By: Staci Ortiz on 12-01-2022 Monocytes (Bld) [#/Vol] 0.9 10*3/uL 0.0-0.8 [facility] Monocytes/100 WBC Auto (Bld) Ordered By: Staci Ortiz on 12-01-2022 Monocytes/100 WBC (Bld) 7.6 % . [facility] Natriuretic peptide B [Mass/ Vol]Ordered By: Staci Ortiz on 12-01-2022 Natriuretic peptide B (Bld) [Mass/Vol] 10.0 pg/mL 5-100 [facility] Neutrophils Auto (Bld) [#/Vo l]Ordered By: Staci Ortiz on 12-01-2022 Neutrophils (Bld) [#/Vol] 9.3 10*3/uL 1.8-7.7 [facility] Neutrophils/100 WBC Auto (Bl d)Ordered By: Staci Ortiz on 12-01-2022 Neutrophils/100 WBC (Bld) 76.8 % . [facility] Nitrite Test strip Ql (U)Ord ered By: Staci Ortiz on 12-01-2022 Nitrite Ql (U) Negative Negative [facility] No Panel InformationOrdered By: Staci Ortiz on 12-01-2022 Estimated GFR (CKD-EPI) > 60.0 mL/Min [facility] Creatinine Clearance (Chem 194.78 [facility] Nucleated erythrocytes [Pres ence] in Blood by Automated countOrdered By: Staci Ortiz on 12-01-2022 Nucleated RBC Auto Ql (Bld) 0.0 /100{WBC} 0-0.5 [facility] Platelet mean volume Auto (B ld) [Entitic vol]Ordered By: Staci Ortiz on 12-01-2022 Platelet mean volume (Bld) [Entitic vol] 8.8 fL 6.3-10.7 [facility] Platelets Auto (Bld) [#/Vol] Ordered By: Staci Ortiz on 12-01-2022 Platelets (Bld) [#/Vol] 212 10*3/uL 150-450 [facility] Potassium [Moles/volume] in Serum or PlasmaOrdered By: Staci Ortiz on 12-01-2022 Potassium [Moles/Vol] 3.7 mmol/L 3.5-5.1 [facility] Protein Auto test strip (U) [Mass/Vol]Ordered By: Staci Ortiz on 12-01-2022 Protein (U) [Mass/Vol] Negative Negative [facility] Prothrombin time (PT)Ordered By: Staci Ortiz on 12-01-2022 PT Coag (PPP) [Time] 11.3 s 9.0-12.9 [facility] Comment on above: A hematocrit value g reater than 55% may lead to inaccurate results in coagulation testing. Patients having hematocrit values >55% require a special collection tube for coagulation studies. Please contact the laboratory at [phone] for redraw instructions. RBC Auto (Bld) [#/Vol]Ordere d By: Staci Ortiz on 12-01-2022 RBC (Bld) [#/Vol] 4.29 10*6/uL 3.60-5.00 [facility] Respiratory pathogens DNA an d RNA panel - Nasopharynx by [employer] with non-probe detectionOrdered By: Staci Ortiz on 12-01-2022 Respiratory pathogens DNA and RNA panel SVETLANA+non-probe (Nph) [facility] Respiratory pathogens DNA and RNA panel SVETLANA+non-probe (Nph) [facility] Serum or plasma anion gap de terminationOrdered By: Staci Ortiz on 12-01-2022 Anion gap [Moles/Vol] 13.3 mmol/L 6.0-15.0 [facility] Sodium [Moles/volume] in Ser um or PlasmaOrdered By: Staci Ortiz on 12-01-2022 Sodium [Moles/Vol] 134 mmol/L 136-145 [facility] Specific gravity Auto test s trip (U) [Rel density]Ordered By: Staci Ortiz on 12-01-2022 Specific gravity (U) [Rel density] 1.021 1.001-1.03 0 [facility] Squamous epithelial cells de tection in urine sediment by light microscopyOrdered By: Staci Ortiz on 12-01-2022 Epithelial cells.squamous LM Ql (Urine sed) 5-9 [HPF] 0-2 [facility] Troponin I.cardiac [Mass/vol ume] in Serum or Plasma by Detection limit <= 0.01 ng/Ordered By: Staci Ortiz on 12-01-2022 Troponin I.cardiac DL <= 0.01 ng/mL [Mass/Vol] < 2.3 pg/mL 0.0-15.0 [facility] Urea nitrogen [Mass/volume] in Serum or PlasmaOrdered By: Staci Ortiz on 12-01-2022 Urea nitrogen [Mass/Vol] 9 mg/dL 7-25 [facility] Urine bacteria detection by automated methodOrdered By: Staci Ortiz on 12-01-2022 Bacteria Auto Ql (U) None seen None Seen [facility] Urine clarity by refractomet ry automatedOrdered By: Staci Ortiz on 12-01-2022 Clarity Refractometry automated (U) Cloudy Clear [facility] Urine glucose measurement by automated test strip (mass/volume)Ordered By: Staci Ortiz on 12-01-2022 Glucose Auto test strip (U) [Mass/Vol] Normal mg/dL Normal [facility] Urine hemoglobin detection b y automated test stripOrdered By: Staci Ortiz on 12-01-2022 Hemoglobin Auto test strip Ql (U) Negative Negative [facility] Urine leukocyte esterase det ection by automated test stripOrdered By: Staci Ortiz on 12-01-2022 Leukocyte esterase Auto test strip Ql (U) 1+ Negative [facility] Urobilinogen Auto test strip (U) [Mass/Vol]Ordered By: Staci Ortiz on 12-01-2022 Urobilinogen (U) [Mass/Vol] Normal mg/dL Normal [facility] WBC Auto (Bld) [#/Vol]Ordere d By: Staci Ortiz on 12-01-2022 WBC (Bld) [#/Vol] 12.1 10*3/uL 3.8-11.6 [facility] pH Auto test strip (U)Ordere d By: Staci Ortiz on 12-01-2022 pH (U) 6.5 [pH] 5.0-9.0 [facility] Amphetamine Screen Ql (U)Ord ered By: TELMA Smith on 11-20-2022 Amphetamines Ql (U) Negative Negative [facility] Barbiturates [Presence] in U rine by Screen methodOrdered By: TELMA Smith on 11-20-2022 Barbiturates Screen Ql (U) Negative Negative [facility] Benzodiazepines Screen Ql (U )Ordered By: TELMA Smith on 11-20-2022 Benzodiazepines Ql (U) Negative Negative [facility] Benzoylecgonine [Presence] i n Urine by Screen methodOrdered By: TELMA Smith on 11-20-2022 Benzoylecgonine Screen Ql (U) Negative Negative [facility] Bilirubin Test strip Ql (U)O rdered By: TELMA Smith on 11-20-2022 Bilirubin Ql (U) Negative Negative [facility] Color Auto (U)Ordered By: MD DESEAN Smith on 11-20-2022 Color (U) Yellow Yellow [facility] Ketones Auto test strip (U) [Mass/Vol]Ordered By: TELMA Smith on 11-20-2022 Ketones (U) [Mass/Vol] Trace Negative [facility] Nitrite Test strip Ql (U)Ord ered By: TELMA Smith on 11-20-2022 Nitrite Ql (U) Negative Negative [facility] Opiates [Presence] in Urine by Screen methodOrdered By: TELMA Smith on 11-20-2022 Opiates Screen Ql (U) Negative Negative [facility] Phencyclidine Screen Ql (U)O rdered By: TELMA Smith on 11-20-2022 Phencyclidine Ql (U) Negative Negative [facility] Comment on above: These are unconfirme d results and should not be used for legal purposes. Drug Cut-Off Concentration: AMPH 1000 ng/mL FAVIOLA 200 ng/mL THA 200 ng/mL COCM 300 ng/mL OP 300 ng/mL PCP 25 ng/mL Protein Auto test strip (U) [Mass/Vol]Ordered By: TELMA Smith on 11-20-2022 Protein (U) [Mass/Vol] Negative Negative [facility] Specific gravity Auto test s trip (U) [Rel density]Ordered By: TELMA Smith on 11-20-2022 Specific gravity (U) [Rel density] 1.025 1.001-1.03 0 [facility] Urine clarity by refractomet ry automatedOrdered By: TELMA Smith on 11-20-2022 Clarity Refractometry automated (U) Clear Clear [facility] Urine glucose measurement by automated test strip (mass/volume)Ordered By: SHELLIE Smith on 11-20-2022 Glucose Auto test strip (U) [Mass/Vol] Normal mg/dL Normal [facility] Urine hemoglobin detection b y automated test stripOrdered By: TELMA Smith on 11-20-2022 Hemoglobin Auto test strip Ql (U) Negative Negative [facility] Urine leukocyte esterase det ection by automated test stripOrdered By: TELMA Smith on 11-20-2022 Leukocyte esterase Auto test strip Ql (U) Negative Negative [facility] Urobilinogen Auto test strip (U) [Mass/Vol]Ordered By: TELMA Smith on 11-20-2022 Urobilinogen (U) [Mass/Vol] Normal mg/dL Normal [facility] pH Auto test strip (U)Ordere d By: TELMA Smith on 11-20-2022 pH (U) 6.5 [pH] 5.0-9.0 [facility] Amphetamine Screen Ql (U)Ord ered By: MARY KAY CANTU on 11-19-2022 Amphetamines Ql (U) Negative Negative [facility] Barbiturates [Presence] in U rine by Screen methodOrdered By: MARY KAY CANTU on 11-19-2022 Barbiturates Screen Ql (U) Negative Negative [facility] Benzodiazepines Screen Ql (U )Ordered By: MARY KAY CANTU on 11-19-2022 Benzodiazepines Ql (U) Negative Negative [facility] Benzoylecgonine [Presence] i n Urine by Screen methodOrdered By: MARY KAY CANTU on 11-19-2022 Benzoylecgonine Screen Ql (U) Negative Negative [facility] Bilirubin Test strip Ql (U)O rdered By: MARY KAY CANTU on 10-05-2023 Bilirubin Ql (U) Negative Negative [facility] Color Auto (U)Ordered By: LJ CANTU on 11-19-2022 Color (U) Yellow Yellow [facility] fibronectinOrdered By: MARY KAY CANTU on 11-19-2022 Fibronectin. (Vag fld) [Mass/Vol] Positive Negative [facility] Ketones Auto test strip (U) [Mass/Vol]Ordered By: MARY KAY CANTU on 11-19-2022 Ketones (U) [Mass/Vol] Trace Negative [facility] Nitrite Test strip Ql (U)Ord ered By: MARY KAY CANTU on 11-19-2022 Nitrite Ql (U) Negative Negative [facility] Opiates [Presence] in Urine by Screen methodOrdered By: MARY KAY CANTU on 11-19-2022 Opiates Screen Ql (U) Negative Negative [facility] Phencyclidine Screen Ql (U)O rdered By: MARY KAY CANTU on 11-19-2022 Phencyclidine Ql (U) Negative Negative [facility] Comment on above: These are unconfirme d results and should not be used for legal purposes. Drug Cut-Off Concentration: AMPH 1000 ng/mL FAVIOLA 200 ng/mL THA 200 ng/mL COCM 300 ng/mL OP 300 ng/mL PCP 25 ng/mL Protein Auto test strip (U) [Mass/Vol]Ordered By: MARY KAY CANTU on 11-19-2022 Protein (U) [Mass/Vol] Negative Negative [facility] Specific gravity Auto test s trip (U) [Rel density]Ordered By: MARY KAY CANTU on 11-19-2022 Specific gravity (U) [Rel density] 1.017 1.001-1.03 0 [facility] Urine clarity by refractomet ry automatedOrdered By: MARY KAY CANTU on 11-19-2022 Clarity Refractometry automated (U) Clear Clear [facility] Urine glucose measurement by automated test strip (mass/volume)Ordered By: MARY KAY CANTU on 11-19-2022 Glucose Auto test strip (U) [Mass/Vol] Normal mg/dL Normal [facility] Urine hemoglobin detection b y automated test stripOrdered By: MARY KAY CANTU on 11-19-2022 Hemoglobin Auto test strip Ql (U) Negative Negative [facility] Urine leukocyte esterase det ection by automated test stripOrdered By: MARY KAY CANTU on 11-19-2022 Leukocyte esterase Auto test strip Ql (U) Negative Negative [facility] Urobilinogen Auto test strip (U) [Mass/Vol]Ordered By: MARY KAY CANTU on 11-19-2022 Urobilinogen (U) [Mass/Vol] Normal mg/dL Normal [facility] pH Auto test strip (U)Ordere d By: MARY KAY CANTU on 11-19-2022 pH (U) 7.5 [pH] 5.0-9.0 [facility] US PREG TVon 07-14-2022 US PREG [...] PETRA SALCIDO Date: 2022-07-14 00:14 Normal [facility] AMYLASEon 07-13-2022 Amylase [Catalytic activity/Vol] 43 U/L Normal 25-115 [facility] Comment on above: Performed By: #### C BC #### [facility] [address] [place] [address] Dr. Moris Winter CBC AUTO DIFFon 07-13-2022 BASO # 0.0 103/ul Normal 0.0-0.1 [facility] Comment on above: Performed By: #### C BC #### [facility] [address] [place] [address] Dr. Moris Winter Basophils/100 WBC (Bld) 0.2 % Normal 0.2-2.0 [facility] Comment on above: Performed By: #### C BC #### [facility] [address] [place] [address] Dr. Moris Winter EO # 0.1 103/ul Normal 0.0-0.7 [facility] Comment on above: Performed By: #### C BC #### [facility] [address] [place] [address] Dr. Moris Winter Eosinophils/100 WBC (Bld) 1.2 % Normal 0.9-7.0 [facility] Comment on above: Performed By: #### C BC #### [facility] [address] [place] [address] Dr. Moris Winter Erythrocyte distribution width (RBC) [Ratio] 13.8 % Normal 11.0-15.0 [facility] Comment on above: Performed By: #### C BC #### [facility] [address] [place] [address] Dr. Moris Winter Hematocrit (Bld) [Volume fraction] 36.6 % Normal 36.0-48.0 [facility] Comment on above: Performed By: #### C BC #### [facility] [address] [place] [address] Dr. Moris Winter Hemoglobin (Bld) [Mass/Vol] 12.3 g/dL Normal 12.0-16.0 [facility] Comment on above: Performed By: #### C BC #### [facility] [address] [place] [address] Dr. Moris Winter IG # 0.03 10e3/ul Normal 0.00-0.03 [facility] Comment on above: Performed By: #### C BC #### [facility] [address] [place] [address] Dr. Moris Winter IG % 0.3 % Normal 0.0-0.5 [facility] Comment on above: Performed By: #### C BC #### [facility] [address] [place] [address] Dr. Moris Winter LYMPH # 2.1 103/ul Normal 1.2-3.8 [facility] Comment on above: Performed By: #### C BC #### [facility] [address] [place] [address] Dr. Moris Winter Lymphocytes/100 WBC (Bld) 24.3 % Normal 20.5-60.0 [facility] Comment on above: Performed By: #### C BC #### [facility] [address] [place] [address] Dr. Moris Winter MANUAL DIFF REQ NO Normal [facility] Comment on above: Performed By: #### C BC #### [facility] [address] [place] [address] Dr. Moris Winter MCH (RBC) [Entitic mass] 27.5 pg Normal 26.7-34.0 [facility] Comment on above: Performed By: #### C BC #### [facility] [address] [place] [address] Dr. Moirs Winter MCHC (RBC) [Mass/Vol] 33.6 g/dL Normal 29.9-35.2 [facility] Comment on above: Performed By: #### C BC #### [facility] [address] [place] [address] Dr. Moris Winter MCV (RBC) [Entitic vol] 81.7 fL Normal 81.0-99.0 [facility] Comment on above: Performed By: #### C BC #### [facility] [address] [place] [address] Dr. Moris Winter MONO # 0.7 103/ul Normal 0.3-0.8 [facility] Comment on above: Performed By: #### C BC #### [facility] [address] [place] [address] Dr. Moris Winter Monocytes/100 WBC (Bld) 7.8 % Normal 1.7-12.0 [facility] Comment on above: Performed By: #### C BC #### [facility] [address] [place] [address] Dr. Moris Winter NEUT # 5.8 103/ul Normal 1.4-6.5 [facility] Comment on above: Performed By: #### C BC #### [facility] [address] [place] [address] Dr. Moris Winter Neutrophils/100 WBC (Bld) 66.2 % Normal 43.0-75.0 [facility] Comment on above: Performed By: #### C BC #### [facility] [address] [place] [address] Dr. Moris Winter Platelet mean volume (Bld) [Entitic vol] 10.2 fL Normal 9.5-13.5 [facility] Comment on above: Performed By: #### C BC #### [facility] [address] [place] [address] Dr. Moris Winter PLT 301 103/ul Normal 150-450 [facility] Comment on above: Performed By: #### C BC #### [facility] [address] [place] [address] Dr. Moris Winter RBC 4.48 106/ul Normal 4.20-5.40 [facility] Comment on above: Performed By: #### C BC #### [facility] [address] [place] [address] Dr. Moris Winter WBC 8.7 103/ul Normal 4.0-11.0 [facility] Comment on above: Performed By: #### C BC #### [facility] [address] [place] [address] Dr. Moris Winter ER URINE PROFILEon 3 Bilirubin Ql (U) Negative Normal NEGATIVE [facility] Comment on above: Performed By: #### P REGU #### [facility] [address] [place] [address] Dr. Moris Winter Clarity (U) CLEAR Normal CLEAR [facility] Comment on above: Performed By: #### P REGU #### [facility] [address] [place] [address] Dr. Moris Winter Color (U) LT. YELLOW Normal YELLOW [facility] Comment on above: Performed By: #### P REGU #### [facility] [address] [place] [address] Dr. Moris Winter ERUAHD A micrscopic examina tion will be performed if indicated. Normal [facility] Comment on above: Performed By: #### P REGU #### [facility] [address] [place] [address] Dr. Moris Winter Glucose Ql (U) Negative Normal NEGATIVE [facility] Comment on above: Performed By: #### P REGU #### [facility] [address] [place] [address] Dr. Moris Winter Hemoglobin Ql (U) Negative Normal NEGATIVE [facility] Comment on above: Performed By: #### P REGU #### [facility] [address] [place] [address] Dr. Moris Winter Ketones Ql (U) TRACE Abnormal NEGATIVE [facility] Comment on above: Performed By: #### P REGU #### [facility] [address] [place] [address] Dr. Moris Winter LEUKOCYTES TRACE Abnormal NEGATIVE [facility] Comment on above: Performed By: #### P REGU #### [facility] [address] [place] [address] Dr. Moris Winter Nitrite Ql (U) Negative Normal NEGATIVE [facility] Comment on above: Performed By: #### P REGU #### [facility] [address] [place] [address] Dr. Moris Winter pH (U) 7.0 [pH] Normal 5-9 [facility] Comment on above: Performed By: #### P REGU #### [facility] [address] [place] [address] Dr. Moris Winter SPEC GRAVITY 1.020 Normal 1.005-<=1. 025 [facility] Comment on above: Performed By: #### P REGU #### [facility] [address] [place] [address] Dr. Moris Winter UA PROTEIN Negative Normal NEGATIVE/ TRACE [facility] Comment on above: Performed By: #### P REGU #### [facility] [address] [place] [address] Dr. Moris Winter UR MICRO IND INDICATED Normal [facility] Comment on above: Performed By: #### P REGU #### [facility] [address] [place] [address] Dr. Moris Winter Urobilinogen Qn (U) 0.2 {Marcin'U}/dL Normal 0.2 - 1. 0 [facility] Comment on above: Performed By: #### P REGU #### [facility] [address] [place] [address] Dr. Moris Winter LIPASEon 07-13-2022 Lipase [Catalytic activity/Vol] 204.0 U/L Normal 73.0-393.0 [facility] Comment on above: Performed By: #### C BC #### [facility] [address] [place] [address] Dr. Moris Winter PREG QUANT HCGon 07-13-2022 HCG QUANT 1455 mIU/mL Normal [facility] Comment on above: Performed By: #### P REGU #### [facility] [address] [place] [address] Dr. Moris Winter HCG RANGE SEE BELOW Normal [facility] Comment on above: Result Comment: 5-50 0.2-1 WEEK 50-500 1-2 WEEKS 100-5,000 2-3 WEEKS 500-10,000 3-4 WEEKS 1,000-50,000 4-5 WEEKS 10,000-100,000 5-6 WEEKS 15,000-200,000 6-8 WEEKS 10,000-100,000 2-3 MONTHS Performed By: #### P REGU #### [facility] [address] [place] [address] Dr. Moris Winter URon 07-13-2022 , QUAL Positive Abnormal NEGATIVE [facility] Comment on above: Performed By: #### P REGU #### [facility] [address] [place] [address] Dr. Moris Winter PROF 14(COMP METB)on 023 Albumin [Mass/Vol] 3.3 g/dL Critically low 3.4-5.0 [facility] Comment on above: Performed By: #### C BC #### [facility] [address] [place] [address] Dr. Moris Winter Albumin/Globulin [Mass ratio] 0.7 {ratio} Normal [facility] Comment on above: Performed By: #### C BC #### [facility] [address] [place] [address] Dr. Moris Winter ALP [Catalytic activity/Vol] 86 U/L Normal 46-116 [facility] Comment on above: Performed By: #### C BC #### [facility] [address] [place] [address] Dr. Moris Winter ALT [Catalytic activity/Vol] 16 U/L Normal 14-59 [facility] Comment on above: Performed By: #### C BC #### [facility] [address] [place] [address] Dr. Moris Winter Anion gap [Moles/Vol] 14.9 mmol/L Normal [facility] Comment on above: Performed By: #### C BC #### [facility] [address] [place] [address] Dr. Moris Winter AST [Catalytic activity/Vol] 12 U/L Critically low 15-37 [facility] Comment on above: Performed By: #### C BC #### [facility] [address] [place] [address] Dr. Moris Winter Bilirubin [Mass/Vol] 0.1 mg/dL Critically low 0.2-1.0 [facility] Comment on above: Performed By: #### C BC #### [facility] [address] [place] [address] Dr. Moris Winter Calcium [Mass/Vol] 9.3 mg/dL Normal 8.5-10.1 [facility] Comment on above: Performed By: #### C BC #### [facility] [address] [place] [address] Dr. Moris Winter Chloride [Moles/Vol] 103 mmol/L Normal 98-107 [facility] Comment on above: Performed By: #### C BC #### [facility] [address] [place] [address] Dr. Moris Winter CO2 [Moles/Vol] 25.4 mmol/L Normal 21.0-32.0 [facility] Comment on above: Performed By: #### C BC #### [facility] [address] [place] [address] Dr. Moris Winter Creatinine [Mass/Vol] 0.80 mg/dL Normal 0.55-1.02 [facility] Comment on above: Performed By: #### C BC #### [facility] [address] [place] [address] Dr. Moris Winter EGFR-AF PALAUAN >60 Normal >=60 [facility] Comment on above: Performed By: #### C BC #### [facility] [address] [place] [address] Dr. Moris Winter EGFR-NON AF PALAUAN >60 Normal >=60 [facility] Comment on above: Performed By: #### C BC #### [facility] [address] [place] [address] Dr. Moris Winter Globulin (S) [Mass/Vol] 4.6 g/dL Normal [facility] Comment on above: Performed By: #### C BC #### [facility] [address] [place] [address] Dr. Moris Winter Glucose [Mass/Vol] 111 mg/dL Critically high 74-106 [facility] Comment on above: Performed By: #### C BC #### [facility] [address] [place] [address] Dr. Moris Winter Potassium [Moles/Vol] 3.3 mmol/L Critically low 3.5-5.1 [facility] Comment on above: Performed By: #### C BC #### [facility] [address] [place] [address] Dr. Moris Winter Protein [Mass/Vol] 7.9 g/dL Normal 6.4-8.2 [facility] Comment on above: Performed By: #### C BC #### [facility] [address] [place] [address] Dr. Moris Winter Sodium [Moles/Vol] 140 mmol/L Normal 136-145 [facility] Comment on above: Performed By: #### C BC #### [facility] [address] [place] [address] Dr. Moris Winter Urea nitrogen [Mass/Vol] 10.0 mg/dL Normal 7.0-18.0 [facility] Comment on above: Performed By: #### C BC #### [facility] [address] [place] [address] Dr. Moris Winter Urea nitrogen/Creatinine [Mass ratio] 12.5 mg/mg Normal [facility] Comment on above: Performed By: #### C BC #### [facility] [address] [place] [address] Dr. Moris Winter URINE MICROSCOPIC ONLYon BACTERIA TRACE Abnormal NONE SEEN [facility] Comment on above: Performed By: #### P REGU #### [facility] [address] [place] [address] Dr. Moris Winter Bacteria identified Cx Nom (U) NOT INDICATED Normal [facility] Comment on above: Performed By: #### P REGU #### [facility] [address] [place] [address] Dr. Moris Winter CAST NONE SEEN Normal NONE SEEN [facility] Comment on above: Performed By: #### P REGU #### [facility] [address] [place] [address] Dr. Moris Winter Crystals LM Nom (Urine sed) NONE SEEN Normal NONE SEEN [facility] Comment on above: Performed By: #### P REGU #### [facility] [address] [place] [address] Dr. Moris Winter Epithelial cells LM Ql (Urine sed) FEW Abnormal NONE SEEN /RARE [facility] Comment on above: Performed By: #### P REGU #### [facility] [address] [address] [address] Moris Winter MUCOUS NONE SEEN Normal NONE SEEN [facility] Comment on above: Performed By: #### P REGU #### [facility] [address] [address] [address] Moris Winter RBC 0-2 Normal 0-2 [facility] Comment on above: Performed By: #### P REGU #### [facility] [address] [address] [address] Moris Winter WBC 2-5 Abnormal NONE SEEN [facility] Comment on above: Performed By: #### P REGU #### [facility] [address] [address] [address] Moris Winter Cholesterol [Mass/volume] in Serum or PlasmaOrdered By: Nataly Toure on 06-16-2022 Cholesterol [Mass/Vol] 189 mg/dL 140-200 [facility] Comment on above: Chol less than 200 m g/dl low riskChol 201-239 mg/dl borderline riskChol 240 mg/dl and greater high risk Cholesterol in LDL Calc [Mas s/Vol]Ordered By: Nataly Toure on 06-16-2022 Cholesterol in LDL [Mass/Vol] 84 mg/dL 0-100 [facility] Comment on above: LDL ATP III CLASSIFI CATIONLDL less than 100 mg/dL OptimalLDL 100-129 mg/dL Near or above optimalLDL 130-159 mg/dL Borderline highLDL 160-189 mg/dL HighLDL greater than 189 mg/dL Very high Cholesterol in VLDL Calc [Ma ss/Vol]Ordered By: Nataly Toure on 06-16-2022 Cholesterol in VLDL [Mass/Vol] 54 mg/dL [facility] Serum or plasma high density lipoprotein (HDL) cholesterol measurementOrdered By: Nataly Toure on 06-16-2022 Cholesterol in HDL [Mass/Vol] 50 mg/dL 35-85 [facility] Comment on above: HDL CHOL ATP-III CLA SSIFICATION Cardiovascular RiskHDL > or equal to 60 mg/dL LOWHDL < 40 mg/dL HIGH Serum or plasma total choles terol/high density lipoprotein (HDL) cholesterol mass ratOrdered By: Nataly Toure on 06-16-2022 Cholesterol.total/Chol esterol in HDL [Mass ratio] 3.8 {ratio} <5.0 [facility] Triglyceride [Mass/volume] i n Serum or PlasmaOrdered By: Nataly Toure on 06-16-2022 Triglyceride [Mass/Vol] 273 mg/dL 0-149 [facility] Comment on above: TRIG ATP III CLASSIF ICATIONTRIG less than 150 mg/dL NormalTRIG 150-199 mg/dL Borderline highTRIG 200-500 mg/dL High TRIG greater than 500 mg/dL Very highStandard traceable to the Center for Disease Conrtrol and Prevention (CDC) test method. Alanine aminotransferase [En zymatic activity/volume] in Serum or PlasmaOrdered By: Nataly Toure on 06-04-2022 ALT [Catalytic activity/Vol] 7 U/L 7-52 [facility] Albumin [Mass/volume] in Ser um or Plasma by Bromocresol green (BCG) dye binding methoOrdered By: Nataly Toure on 06-04-2022 Albumin BCG dye [Mass/Vol] 3.8 g/dL 3.5-5.7 [facility] Alkaline phosphatase [Enzyma tic activity/volume] in Serum or PlasmaOrdered By: Nataly Toure on 06-04-2022 ALP [Catalytic activity/Vol] 78 U/L 34-104 [facility] Amylase [Enzymatic activity/ volume] in Serum or PlasmaOrdered By: Nataly Toure on 06-04-2022 Amylase [Catalytic activity/Vol] 29 U/L 29-103 [facility] Aspartate aminotransferase [ Enzymatic activity/volume] in Serum or PlasmaOrdered By: Nataly Toure on 06-04-2022 AST [Catalytic activity/Vol] 10 U/L 13-39 [facility] Basophils Auto (Bld) [#/Vol] Ordered By: Nataly Toure on 06-04-2022 Basophils (Bld) [#/Vol] 0.1 10*3/uL 0.0-0.2 [facility] Basophils/100 WBC Auto (Bld) Ordered By: Nataly Toure on 06-04-2022 Basophils/100 WBC (Bld) 1.4 % . [facility] Bilirubin.total [Mass/volume ] in Serum or PlasmaOrdered By: Nataly Toure on 06-04-2022 Bilirubin [Mass/Vol] 0.3 mg/dL 0.3-1.0 [facility] Calcium [Mass/volume] in Ser um or PlasmaOrdered By: Nataly Toure on 06-04-2022 Calcium [Mass/Vol] 9.3 mg/dL 8.6-10.3 [facility] Carbon dioxide, total [Moles /volume] in Serum or PlasmaOrdered By: Nataly Toure on 06-04-2022 CO2 [Moles/Vol] 29.6 mmol/L 21.0-31.0 [facility] Chloride [Moles/volume] in S rosa or PlasmaOrdered By: Nataly Toure on 06-04-2022 Chloride [Moles/Vol] 99 mmol/L 98-107 [facility] Creatinine [Mass/volume] in Serum or PlasmaOrdered By: Nataly Toure on 06-04-2022 Creatinine [Mass/Vol] 0.69 mg/dL 0.60-1.20 [facility] Eosinophils Auto (Bld) [#/Vo l]Ordered By: Nataly Toure on 06-04-2022 Eosinophils (Bld) [#/Vol] 0.2 10*3/uL 0.0-0.45 [facility] Eosinophils/100 WBC Auto (Bl d)Ordered By: Nataly Toure on 06-04-2022 Eosinophils/100 WBC (Bld) 1.8 % . [facility] Erythrocyte distribution wid th Auto (RBC) [Ratio]Ordered By: Nataly Toure on 06-04-2022 Erythrocyte distribution width (RBC) [Ratio] 14.6 % 11.9-15.3 [facility] Ferritin [Mass/volume] in Se rum or PlasmaOrdered By: Nataly Toure on 06-04-2022 Ferritin [Mass/Vol] 12.7 ng/mL 11.0-306.8 [facility] Globulin Calc (S) [Mass/Vol] Ordered By: Nataly Toure on 06-04-2022 Globulin (S) [Mass/Vol] 3.6 g/dL [facility] Glucose [Mass/volume] in Ser um or PlasmaOrdered By: Nataly Toure on 06-04-2022 Glucose [Mass/Vol] 103 mg/dL 70-100 [facility] Comment on above: ADA recommended refe rence rangeRandom Glucose Reference Range is dependent on time and content of last meal. Glucose of more than 200 mg/dL in a nonstressed, ambulatory subject supports the diagnosis of Diabetes Mellitus. Hematocrit Auto (Bld) [Volum e fraction]Ordered By: Nataly Toure on 06-04-2022 Hematocrit (Bld) [Volume fraction] 38.2 % 34.0-46.4 [facility] Hemoglobin [Mass/volume] in BloodOrdered By: Nataly Toure on 06-04-2022 Hemoglobin (Bld) [Mass/Vol] 12.7 g/dL 11.8-15.4 [facility] Leukocytes [#/volume] correc kee for nucleated erythrocytes in Blood by Automated counOrdered By: Nataly Toure on 06-04-2022 WBC corrected for nucl RBC Auto (Bld) [#/Vol] 8.7 10*3/uL 3.8-11.6 [facility] Lipase [Enzymatic activity/v olume] in Serum or PlasmaOrdered By: Nataly Toure on 06-04-2022 Lipase [Catalytic activity/Vol] 38.0 U/L 11.0-82.0 [facility] Lymphocytes Auto (Bld) [#/Vo l]Ordered By: Nataly Toure on 06-04-2022 Lymphocytes (Bld) [#/Vol] 1.7 10*3/uL 1.00-4.8 [facility] Lymphocytes/100 WBC Auto (Bl d)Ordered By: Nataly Toure on 06-04-2022 Lymphocytes/100 WBC (Bld) 19.7 % . [facility] MCH Auto (RBC) [Entitic mass ]Ordered By: Nataly Toure on 06-04-2022 MCH (RBC) [Entitic mass] 26.8 pg 24.7-34.3 [facility] MCHC Auto (RBC) [Mass/Vol]Or dered By: Nataly Toure on 06-04-2022 MCHC (RBC) [Mass/Vol] 33.2 g/dL 32.0-35.0 [facility] MCV Auto (RBC) [Entitic vol] Ordered By: Nataly Toure on 06-04-2022 MCV (RBC) [Entitic vol] 80.7 fL 80-100 [facility] Monocytes Auto (Bld) [#/Vol] Ordered By: Nataly Toure on 06-04-2022 Monocytes (Bld) [#/Vol] 0.5 10*3/uL 0.0-0.8 [facility] Monocytes/100 WBC Auto (Bld) Ordered By: Nataly Toure on 06-04-2022 Monocytes/100 WBC (Bld) 6.1 % . [facility] Neutrophils Auto (Bld) [#/Vo l]Ordered By: Nataly Toure on 06-04-2022 Neutrophils (Bld) [#/Vol] 6.2 10*3/uL 1.8-7.7 [facility] Neutrophils/100 WBC Auto (Bl d)Ordered By: Nataly Toure on 06-04-2022 Neutrophils/100 WBC (Bld) 71.0 % . [facility] No Panel InformationOrdered By: Nataly Toure on 06-04-2022 Estimated GFR (CKD-EPI) > 60.0 mL/Min [facility] Creatinine Clearance (Chem N/A [facility] Nucleated erythrocytes [Pres ence] in Blood by Automated countOrdered By: Nataly Toure on 06-04-2022 Nucleated RBC Auto Ql (Bld) 0.2 /100{WBC} 0-0.5 [facility] Platelet mean volume Auto (B ld) [Entitic vol]Ordered By: Nataly Toure on 06-04-2022 Platelet mean volume (Bld) [Entitic vol] 10.2 fL 6.3-10.7 [facility] Platelets Auto (Bld) [#/Vol] Ordered By: Nataly Toure on 06-04-2022 Platelets (Bld) [#/Vol] 245 10*3/uL 150-450 [facility] Potassium [Moles/volume] in Serum or PlasmaOrdered By: Nataly Toure on 06-04-2022 Potassium [Moles/Vol] 4.5 mmol/L 3.5-5.1 [facility] Protein [Mass/volume] in Ser um or PlasmaOrdered By: Nataly Toure on 06-04-2022 Protein [Mass/Vol] 7.4 g/dL 6.4-8.9 [facility] RBC Auto (Bld) [#/Vol]Ordere d By: Nataly Toure on 06-04-2022 RBC (Bld) [#/Vol] 4.73 10*6/uL 3.60-5.00 [facility] Serum or plasma albumin/glob ulin mass ratioOrdered By: Nataly Toure on 06-04-2022 Albumin/Globulin [Mass ratio] 1.1 {ratio} [facility] Serum or plasma anion gap de terminationOrdered By: Nataly Toure on 06-04-2022 Anion gap [Moles/Vol] 10.9 mmol/L 6.0-15.0 [facility] Serum or plasma insulin nikita urement (units/volume)Ordered By: Nataly Toure on 06-04-2022 Insulin Qn 128.0 u[iU]/mL 2.6-24.9 [facility] Comment on above: Performed at: [address] [id number] Director: Sam Lopez PhD, Phone: [phone] Sodium [Moles/volume] in Ser um or PlasmaOrdered By: Nataly Toure on 06-04-2022 Sodium [Moles/Vol] 135 mmol/L 136-145 [facility] Urea nitrogen [Mass/volume] in Serum or PlasmaOrdered By: Nataly Toure on 06-04-2022 Urea nitrogen [Mass/Vol] 9 mg/dL 7-25 [facility] WBC Auto (Bld) [#/Vol]Ordere d By: Nataly Toure on 06-04-2022 WBC (Bld) [#/Vol] 8.7 10*3/uL 3.8-11.6 [facility] AMYLASEon 06-03-2022 Amylase [Catalytic activity/Vol] 37 U/L Normal 25-115 [facility] Comment on above: Performed By: #### L IPA, CMP, KIM #### [facility] [address] [address] [address] Moris Winter CBC AUTO DIFFon 06-03-2022 BASO # 0.0 103/ul Normal 0.0-0.1 [facility] Comment on above: Performed By: #### C BC #### [facility] [address] [place] [address] Dr. Moris Winter Basophils/100 WBC (Bld) 0.1 % Critically low 0.2-2.0 [facility] Comment on above: Performed By: #### C BC #### [facility] [address] [place] [address] Dr. Moris Winter EO # 0.1 103/ul Normal 0.0-0.7 [facility] Comment on above: Performed By: #### C BC #### [facility] [address] [place] [address] Dr. Moris Winter Eosinophils/100 WBC (Bld) 1.6 % Normal 0.9-7.0 [facility] Comment on above: Performed By: #### C BC #### [facility] [address] [place] [address] Dr. Moris Winter Erythrocyte distribution width (RBC) [Ratio] 13.5 % Normal 11.0-15.0 [facility] Comment on above: Performed By: #### C BC #### [facility] [address] [place] [address] Dr. Moris Winter Hematocrit (Bld) [Volume fraction] 36.3 % Normal 36.0-48.0 [facility] Comment on above: Performed By: #### C BC #### [facility] [address] [place] [address] Dr. Moris Winter Hemoglobin (Bld) [Mass/Vol] 11.8 g/dL Critically low 12.0-16.0 [facility] Comment on above: Performed By: #### C BC #### [facility] [address] [place] [address] Dr. Moris Winter IG # 0.03 10e3/ul Normal 0.00-0.03 [facility] Comment on above: Performed By: #### C BC #### [facility] [address] [place] [address] Dr. Moris Winter IG % 0.4 % Normal 0.0-0.5 [facility] Comment on above: Performed By: #### C BC #### [facility] [address] [place] [address] Dr. Moris Winter LYMPH # 2.5 103/ul Normal 1.2-3.8 [facility] Comment on above: Performed By: #### C BC #### [facility] [address] [place] [address] Dr. Moris Winter Lymphocytes/100 WBC (Bld) 33.2 % Normal 20.5-60.0 [facility] Comment on above: Performed By: #### C BC #### [facility] [address] [place] [address] Dr. Moris Winter MANUAL DIFF REQ NO Normal [facility] Comment on above: Performed By: #### C BC #### [facility] [address] [place] [address] Dr. Moris Winter MCH (RBC) [Entitic mass] 26.2 pg Critically low 26.7-34.0 [facility] Comment on above: Performed By: #### C BC #### [facility] [address] [place] [address] Dr. Moris Winter MCHC (RBC) [Mass/Vol] 32.5 g/dL Normal 29.9-35.2 [facility] Comment on above: Performed By: #### C BC #### [facility] [address] [place] [address] Dr. Moris Winter MCV (RBC) [Entitic vol] 80.7 fL Critically low 81.0-99.0 [facility] Comment on above: Performed By: #### C BC #### [facility] [address] [place] [address] Dr. Moris Winter MONO # 0.7 103/ul Normal 0.3-0.8 [facility] Comment on above: Performed By: #### C BC #### [facility] [address] [place] [address] Dr. Moris Winter Monocytes/100 WBC (Bld) 9.9 % Normal 1.7-12.0 [facility] Comment on above: Performed By: #### C BC #### [facility] [address] [place] [address] Dr. Moris Winter NEUT # 4.1 103/ul Normal 1.4-6.5 [facility] Comment on above: Performed By: #### C BC #### [facility] [address] [place] [address] Dr. Moris Winter Neutrophils/100 WBC (Bld) 54.8 % Normal 43.0-75.0 [facility] Comment on above: Performed By: #### C BC #### [facility] [address] [place] [address] Dr. Moris Winter Platelet mean volume (Bld) [Entitic vol] 10.7 fL Normal 9.5-13.5 [facility] Comment on above: Performed By: #### C BC #### [facility] [address] [place] [address] Dr. Moris Winter PLT 248 103/ul Normal 150-450 [facility] Comment on above: Performed By: #### C BC #### [facility] [address] [place] [address] Dr. Moris Winter RBC 4.50 106/ul Normal 4.20-5.40 [facility] Comment on above: Performed By: #### C BC #### [facility] [address] [place] [address] Dr. Moris Winter WBC 7.5 103/ul Normal 4.0-11.0 [facility] Comment on above: Performed By: #### C BC #### [facility] [address] [place] [address] ABD/PELV W CONon [...] NANCI COULTER Date: 2022-06-03 02:19 Normal [facility] ER URINE PROFILEon 3 Bilirubin Ql (U) Negative Normal NEGATIVE [facility] Comment on above: Performed By: #### C BC #### [facility] [address] [place] [address] [id number] [address] Moris Winter Clarity (U) CLEAR Normal CLEAR [facility] Comment on above: Performed By: #### C BC #### [facility] [address] [place], [place] [address] Dr. Moris Winter Color (U) LT. YELLOW Normal YELLOW [facility] Comment on above: Performed By: #### C BC #### [facility] [address] [address] [address] Moris PROCTOR A micrscopic examina tion will be performed if indicated. Normal [facility] Comment on above: Performed By: #### C BC #### [facility] [address] [address] [address] Moris Winter Glucose Ql (U) Negative Normal NEGATIVE [facility] Comment on above: Performed By: #### C BC #### [facility] [address] [address] [address] Moris Winter Hemoglobin Ql (U) Negative Normal NEGATIVE [facility] Comment on above: Performed By: #### C BC #### [facility] [address] [place] [address] Dr. Moris Winter Ketones Ql (U) Negative Normal NEGATIVE [facility] Comment on above: Performed By: #### C BC #### [facility] [address] [place] [address] Dr. Moris Winter LEUKOCYTES Negative Normal NEGATIVE [facility] Comment on above: Performed By: #### C BC #### [facility] [address] [address] [address] Moris Winter Nitrite Ql (U) Negative Normal NEGATIVE [facility] Comment on above: Performed By: #### C BC #### [facility] [address] [place] [address] Dr. Moris Winter pH (U) 7.0 [pH] Normal 5-9 [facility] Comment on above: Performed By: #### C BC #### [facility] [address] [address] [address] Moris Winter SPEC GRAVITY 1.015 Normal 1.005-<=1. 025 [facility] Comment on above: Performed By: #### C BC #### [facility] [address] [place] [address] Dr. Moris Winter UA PROTEIN Negative Normal NEGATIVE/ TRACE [facility] Comment on above: Performed By: #### C BC #### [facility] [address] [place] [address] Dr. Moris Winter UR MICRO IND NOT INDICATED Normal [facility] Comment on above: Performed By: #### C BC #### [facility] [address] [place] [address] Dr. Moris Winter Urobilinogen Qn (U) 1.0 {Marcin'U}/dL Normal 0.2 - 1. 0 [facility] Comment on above: Performed By: #### C BC #### [facility] [address] [place] [address] Dr. Moris Winter LACTATE/LACTIC ACIDon 2022 Lactate [Moles/Vol] 1.0 mmol/L Normal 0.4-2.0 [facility] Comment on above: Performed By: #### L ACT #### [facility] [address] [place] [address] Dr. Moris Winter LIPASEon 06-03-2022 Lipase [Catalytic activity/Vol] 112.0 U/L Normal 73.0-393.0 [facility] Comment on above: Performed By: #### L IPA, CMP, KIM #### [facility] [address] [place] [address] Dr. Moris Winter URon 06-03-2022 , QUAL Negative Normal NEGATIVE [facility] Comment on above: Performed By: #### P REGU #### [facility] [address] [place] [address] Dr. Moris Winter PROF 14(COMP METB)on 023 Albumin [Mass/Vol] 2.9 g/dL Critically low 3.4-5.0 [facility] Comment on above: Performed By: #### L IPA, CMP, KIM #### [facility] [address] [place] [address] Dr. Moris Winter Albumin/Globulin [Mass ratio] 0.6 {ratio} Normal [facility] Comment on above: Performed By: #### L IPA, CMP, KIM #### [facility] [address] [place] [address] Dr. Moris Winter ALP [Catalytic activity/Vol] 86 U/L Normal 46-116 [facility] Comment on above: Performed By: #### L IPA, CMP, KIM #### [facility] [address] [place] [address] Dr. Moris Winter ALT [Catalytic activity/Vol] 14 U/L Normal 14-59 [facility] Comment on above: Performed By: #### L IPA, CMP, KIM #### [facility] [address] [place] [address] Dr. Moris Winter Anion gap [Moles/Vol] 10.9 mmol/L Normal [facility] Comment on above: Performed By: #### L IPA, CMP, KIM #### [facility] [address] [place] [address] Dr. Moris Winter AST [Catalytic activity/Vol] 12 U/L Critically low 15-37 [facility] Comment on above: Performed By: #### L IPA, CMP, KIM #### [facility] [address] [place] [address] Dr. Moris Winter Bilirubin [Mass/Vol] 0.2 mg/dL Normal 0.2-1.0 [facility] Comment on above: Performed By: #### L IPA, CMP, KIM #### [facility] [address] [place] [address] Dr. Moris Winter Calcium [Mass/Vol] 9.0 mg/dL Normal 8.5-10.1 [facility] Comment on above: Performed By: #### L IPA, CMP, KIM #### [facility] [address] [place] [address] Dr. Moris Winter Chloride [Moles/Vol] 102 mmol/L Normal 98-107 [facility] Comment on above: Performed By: #### L IPA, CMP, KIM #### [facility] [address] [place] [address] Dr. Moris Winter CO2 [Moles/Vol] 29.6 mmol/L Normal 21.0-32.0 [facility] Comment on above: Performed By: #### L IPA, CMP, KIM #### [facility] [address] [place] [address] Dr. Moris Winter Creatinine [Mass/Vol] 0.73 mg/dL Normal 0.55-1.02 [facility] Comment on above: Performed By: #### L IPA, CMP, KIM #### [facility] [address] [address] [address] Moris Winter EGFR-AF PALAUAN >60 Normal >=60 [facility] Comment on above: Performed By: #### L IPA, CMP, KIM #### [facility] [address] [address] [address] Moris Winter EGFR-NON AF PALAUAN >60 Normal >=60 [facility] Comment on above: Performed By: #### L IPA, CMP, KIM #### [facility] [address] [address] [address] Moris Winter Globulin (S) [Mass/Vol] 4.8 g/dL Normal [facility] Comment on above: Performed By: #### L IPA CMP, KIM #### [facility] [address] [place] [address] Dr. Moris Winter Glucose [Mass/Vol] 121 mg/dL Critically high 74-106 [facility] Comment on above: Performed By: #### L IPA CMP, KIM #### [facility] [address] [place] [address] Dr. Moris Winter Potassium [Moles/Vol] 3.5 mmol/L Normal 3.5-5.1 [facility] Comment on above: Performed By: #### L IPA, CMP, KIM #### [facility] [address] [place] [address] Dr. Moris Winter Protein [Mass/Vol] 7.7 g/dL Normal 6.4-8.2 [facility] Comment on above: Performed By: #### L IPA, CMP, KIM #### [facility] [address] [address] [address] Moris Winter Sodium [Moles/Vol] 139 mmol/L Normal 136-145 [facility] Comment on above: Performed By: #### L IPA, CMP, KIM #### [facility] [address] [place], [place] [address] Dr. Moris Winter Urea nitrogen [Mass/Vol] 11.0 mg/dL Normal 7.0-18.0 [facility] Comment on above: Performed By: #### L IPA, CMP, KIM #### [facility] [address] [place], [place] [address] Dr. Moris Winter Urea nitrogen/Creatinine [Mass ratio] 15.1 mg/mg Normal [facility] Comment on above: Performed By: #### L IPA, CMP, KIM #### [facility] [address] [place], [place] [address] Dr. Moris Winter Alanine aminotransferase [En zymatic activity/volume] in Serum or PlasmaOrdered By: Nataly Toure on 05-28-2022 ALT [Catalytic activity/Vol] 10 U/L 7-52 [facility] Albumin [Mass/volume] in Ser um or Plasma by Bromocresol green (BCG) dye binding methoOrdered By: Nataly Toure on 05-28-2022 Albumin BCG dye [Mass/Vol] 3.9 g/dL 3.5-5.7 [facility] Alkaline phosphatase [Enzyma tic activity/volume] in Serum or PlasmaOrdered By: Nataly Toure on 05-28-2022 ALP [Catalytic activity/Vol] 87 U/L 34-104 [facility] Aspartate aminotransferase [ Enzymatic activity/volume] in Serum or PlasmaOrdered By: Nataly Toure on 05-28-2022 AST [Catalytic activity/Vol] 11 U/L 13-39 [facility] Basophils Auto (Bld) [#/Vol] Ordered By: Nataly Toure on 05-28-2022 Basophils (Bld) [#/Vol] 0.0 10*3/uL 0.0-0.2 [facility] Basophils/100 WBC Auto (Bld) Ordered By: Nataly Toure on 05-28-2022 Basophils/100 WBC (Bld) 0.6 % . [facility] Bilirubin.total [Mass/volume ] in Serum or PlasmaOrdered By: Nataly Toure on 05-28-2022 Bilirubin [Mass/Vol] 0.4 mg/dL 0.3-1.0 [facility] Calcium [Mass/volume] in Ser um or PlasmaOrdered By: Nataly Toure on 05-28-2022 Calcium [Mass/Vol] 9.1 mg/dL 8.6-10.3 [facility] Carbon dioxide, total [Moles /volume] in Serum or PlasmaOrdered By: Nataly Toure on 05-28-2022 CO2 [Moles/Vol] 27.6 mmol/L 21.0-31.0 [facility] Chloride [Moles/volume] in S rosa or PlasmaOrdered By: Nataly Toure on 05-28-2022 Chloride [Moles/Vol] 102 mmol/L 98-107 [facility] Cholesterol [Mass/volume] in Serum or PlasmaOrdered By: Nataly Toure on 05-28-2022 Cholesterol [Mass/Vol] 269 mg/dL 140-200 [facility] Comment on above: Chol less than 200 m g/dl low riskChol 201-239 mg/dl borderline riskChol 240 mg/dl and greater high risk Cholesterol in LDL Calc [Mas s/Vol]Ordered By: Nataly Toure on 05-28-2022 Cholesterol in LDL [Mass/Vol] TNP [facility] Comment on above: Test not performed Cholesterol in LDL [Mass/vol ume] in Serum or PlasmaOrdered By: Nataly Toure on 05-28-2022 Cholesterol in LDL [Mass/Vol] 82 mg/dL 0-100 [facility] Comment on above: LDL ATP III CLASSIFI CATIONLDL less than 100 mg/dL OptimalLDL 100-129 mg/dL Near or above optimalLDL 130-159 mg/dL Borderline highLDL 160-189 mg/dL HighLDL greater than 189 mg/dL Very high Cholesterol in VLDL Calc [Ma ss/Vol]Ordered By: Nataly Toure on 05-28-2022 Cholesterol in VLDL [Mass/Vol] 187 mg/dL [facility] Creatinine [Mass/volume] in Serum or PlasmaOrdered By: Nataly Toure on 05-28-2022 Creatinine [Mass/Vol] 0.68 mg/dL 0.60-1.20 [facility] Eosinophils Auto (Bld) [#/Vo l]Ordered By: Nataly Toure on 05-28-2022 Eosinophils (Bld) [#/Vol] 0.2 10*3/uL 0.0-0.45 [facility] Eosinophils/100 WBC Auto (Bl d)Ordered By: Nataly Toure on 05-28-2022 Eosinophils/100 WBC (Bld) 2.1 % . [facility] Erythrocyte distribution wid th Auto (RBC) [Ratio]Ordered By: Nataly Toure on 05-28-2022 Erythrocyte distribution width (RBC) [Ratio] 14.5 % 11.9-15.3 [facility] Free thyroxine indexOrdered By: Nataly Jernigan on 05-28-2022 Free T4 index Calc [Mass/Vol] 2.9 1.2-4.9 [facility] Globulin Calc (S) [Mass/Vol] Ordered By: Nataly Toure on 05-28-2022 Globulin (S) [Mass/Vol] 3.6 g/dL [facility] Glucose [Mass/volume] in Ser um or PlasmaOrdered By: Nataly Toure on 05-28-2022 Glucose [Mass/Vol] 95 mg/dL 70-100 [facility] Comment on above: ADA recommended refe rence rangeRandom Glucose Reference Range is dependent on time and content of last meal. Glucose of more than 200 mg/dL in a nonstressed, ambulatory subject supports the diagnosis of Diabetes Mellitus. Glucose mean value [Mass/vol ume] in Blood Estimated from glycated hemoglobinOrdered By: Nataly Toure on 05-28-2022 Average glucose Estimated from glycated hemoglobin (Bld) [Mass/Vol] 111 mg/dL [facility] Hematocrit Auto (Bld) [Volum e fraction]Ordered By: Nataly Toure on 05-28-2022 Hematocrit (Bld) [Volume fraction] 38.2 % 34.0-46.4 [facility] Hemoglobin A1c percentageOrd ered By: Nataly Toure on 05-28-2022 HbA1c (Bld) [Mass fraction] 5.5 % 4.3-5.6 [facility] Comment on above: Increased risk for d iabetes: 5.7 - 6.4diabetes: >6.4glycemic control for adults with diabetes: <7.0 Hemoglobin [Mass/volume] in BloodOrdered By: Nataly Toure on 05-28-2022 Hemoglobin (Bld) [Mass/Vol] 12.9 g/dL 11.8-15.4 [facility] Iron [Mass/volume] in Serum or PlasmaOrdered By: Nataly Toure on 05-28-2022 Iron [Mass/Vol] 30 ug/dL 50-212 [facility] Iron binding capacity [Mass/ volume] in Serum or PlasmaOrdered By: Nataly Toure on 05-28-2022 Iron binding capacity [Mass/Vol] 449 ug/dL 255-450 [facility] Iron saturation [Mass Fracti on] in Serum or PlasmaOrdered By: Nataly Toure on 05-28-2022 Iron saturation [Mass fraction] 6.7 % 20-50 [facility] Leukocytes [#/volume] correc kee for nucleated erythrocytes in Blood by Automated counOrdered By: Nataly Toure on 05-28-2022 WBC corrected for nucl RBC Auto (Bld) [#/Vol] 7.3 10*3/uL 3.8-11.6 [facility] Lymphocytes Auto (Bld) [#/Vo l]Ordered By: Nataly Toure on 05-28-2022 Lymphocytes (Bld) [#/Vol] 1.9 10*3/uL 1.00-4.8 [facility] Lymphocytes/100 WBC Auto (Bl d)Ordered By: Nataly Toure on 05-28-2022 Lymphocytes/100 WBC (Bld) 26.6 % . [facility] MCH Auto (RBC) [Entitic mass ]Ordered By: Nataly Toure on 05-28-2022 MCH (RBC) [Entitic mass] 26.9 pg 24.7-34.3 [facility] MCHC Auto (RBC) [Mass/Vol]Or dered By: Nataly Toure on 05-28-2022 MCHC (RBC) [Mass/Vol] 33.8 g/dL 32.0-35.0 [facility] MCV Auto (RBC) [Entitic vol] Ordered By: Nataly Toure on 05-28-2022 MCV (RBC) [Entitic vol] 79.6 fL 80-100 [facility] Monocytes Auto (Bld) [#/Vol] Ordered By: Nataly Toure on 05-28-2022 Monocytes (Bld) [#/Vol] 0.6 10*3/uL 0.0-0.8 [facility] Monocytes/100 WBC Auto (Bld) Ordered By: Nataly Toure on 05-28-2022 Monocytes/100 WBC (Bld) 7.7 % . [facility] Neutrophils Auto (Bld) [#/Vo l]Ordered By: Nataly Toure on 05-28-2022 Neutrophils (Bld) [#/Vol] 4.6 10*3/uL 1.8-7.7 [facility] Neutrophils/100 WBC Auto (Bl d)Ordered By: Nataly Toure on 05-28-2022 Neutrophils/100 WBC (Bld) 63.0 % . [facility] No Panel InformationOrdered By: Nataly Toure on 05-28-2022 Estimated GFR (CKD-EPI) > 60.0 mL/Min [facility] Free Thyroxine (T4) Direct 10.8 ug/dL 4.5-12.0 [facility] Creatinine Clearance (Chem N/A [facility] Nucleated erythrocytes [Pres ence] in Blood by Automated countOrdered By: Nataly Toure on 05-28-2022 Nucleated RBC Auto Ql (Bld) 0.4 /100{WBC} 0-0.5 [facility] Platelet mean volume Auto (B ld) [Entitic vol]Ordered By: aNtaly Toure on 05-28-2022 Platelet mean volume (Bld) [Entitic vol] 9.0 fL 6.3-10.7 [facility] Platelets Auto (Bld) [#/Vol] Ordered By: Natayl Toure on 05-28-2022 Platelets (Bld) [#/Vol] 247 10*3/uL 150-450 [facility] Potassium [Moles/volume] in Serum or PlasmaOrdered By: Nataly Toure on 05-28-2022 Potassium [Moles/Vol] 3.8 mmol/L 3.5-5.1 [facility] Protein [Mass/volume] in Ser um or PlasmaOrdered By: Nataly Toure on 05-28-2022 Protein [Mass/Vol] 7.5 g/dL 6.4-8.9 [facility] RBC Auto (Bld) [#/Vol]Ordere d By: Nataly Toure on 05-28-2022 RBC (Bld) [#/Vol] 4.80 10*6/uL 3.60-5.00 [facility] Serum or plasma albumin/glob ulin mass ratioOrdered By: Nataly Toure on 05-28-2022 Albumin/Globulin [Mass ratio] 1.1 {ratio} [facility] Serum or plasma anion gap de terminationOrdered By: Nataly Toure on 05-28-2022 Anion gap [Moles/Vol] 12.2 mmol/L 6.0-15.0 [facility] Serum or plasma high density lipoprotein (HDL) cholesterol measurementOrdered By: Nataly Toure on 05-28-2022 Cholesterol in HDL [Mass/Vol] 42 mg/dL 35-85 [facility] Comment on above: HDL CHOL ATP-III CLA SSIFICATION Cardiovascular RiskHDL > or equal to 60 mg/dL LOWHDL < 40 mg/dL HIGH Serum or plasma thyroperoxid ase antibody assay (units/volume)Ordered By: Nataly Toure on 05-28-2022 TPO Ab Qn [IU]/mL 0-34 [facility] Comment on above: Performed at: [facility] [address] [id number] Director: Sam Lopez PhD, Phone: [phone] Serum or plasma total choles terol/high density lipoprotein (HDL) cholesterol mass ratOrdered By: Nataly Toure on 05-28-2022 Cholesterol.total/Chol esterol in HDL [Mass ratio] 6.4 {ratio} <5.0 [facility] Sodium [Moles/volume] in Ser um or PlasmaOrdered By: Nataly Toure on 05-28-2022 Sodium [Moles/Vol] 138 mmol/L 136-145 [facility] TSH DL <= 0.005 mIU/L QnOrde red By: Nataly Toure on 05-28-2022 TSH Qn 2.330 m[IU]/L 0.450-4.50 0 [facility] Transferrin [Mass/volume] in Serum or PlasmaOrdered By: Nataly Toure on 05-28-2022 Transferrin [Mass/Vol] 321 mg/dL 203-362 [facility] Triglyceride [Mass/volume] i n Serum or PlasmaOrdered By: Nataly Toure on 05-28-2022 Triglyceride [Mass/Vol] 939 mg/dL 0-149 [facility] Comment on above: If the triglyceride [...] on 05-28-2022 T3 [Mass/Vol] 186 ng/dL 71-180 [facility] Triiodothyronine (T3) resin uptake testOrdered By: Nataly Toure on 05-28-2022 T3RU 27 % 24-39 [facility] Urea nitrogen [Mass/volume] in Serum or PlasmaOrdered By: Nataly Toure on 05-28-2022 Urea nitrogen [Mass/Vol] 11 mg/dL 7-25 [facility] WBC Auto (Bld) [#/Vol]Ordere d By: Nataly Toure on 05-28-2022 WBC (Bld) [#/Vol] 7.3 10*3/uL 3.8-11.6 [facility] XR LSPINE 2_3 VIEWSon 2022 XR LSPINE [...] PILI MIGUEL Date: 2022-03-15 22:49 Normal [facility] CBC AUTO DIFFon 03-15-2022 BASO # 0.0 103/ul Normal 0.0-0.1 [facility] Comment on above: Performed By: #### P REGU #### [facility] [address] [address] [address] Moris Winter Basophils/100 WBC (Bld) 0.1 % Critically low 0.2-2.0 [facility] Comment on above: Performed By: #### P REGU #### [facility] [address] [address] [address] Moris Winter EO # 0.1 103/ul Normal 0.0-0.7 [facility] Comment on above: Performed By: #### P REGU #### [facility] [address] [address] [address] Moris Winter Eosinophils/100 WBC (Bld) 0.8 % Critically low 0.9-7.0 [facility] Comment on above: Performed By: #### P REGU #### [facility] [address] [address] [address] Moris Winter Erythrocyte distribution width (RBC) [Ratio] 13.3 % Normal 11.0-15.0 [facility] Comment on above: Performed By: #### P REGU #### [facility] [address] [address] [address] Moris Winter Hematocrit (Bld) [Volume fraction] 37.4 % Normal 36.0-48.0 [facility] Comment on above: Performed By: #### P REGU #### [facility] [address] [address] [address] Moris Winter Hemoglobin (Bld) [Mass/Vol] 13.2 g/dL Normal 12.0-16.0 [facility] Comment on above: Performed By: #### P REGU #### [facility] [address] [place] [address] Dr. Moris Winter IG # 0.02 10e3/ul Normal 0.00-0.03 [facility] Comment on above: Performed By: #### P REGU #### [facility] [address] [place] [address] Dr. Moris Winter IG % 0.2 % Normal 0.0-0.5 [facility] Comment on above: Performed By: #### P REGU #### [facility] [address] [place] [address] Dr. Moris Winter LYMPH # 1.2 103/ul Normal 1.2-3.8 [facility] Comment on above: Performed By: #### P REGU #### [facility] [address] [place] [address] Dr. Moris Winter Lymphocytes/100 WBC (Bld) 14.6 % Critically low 20.5-60.0 [facility] Comment on above: Performed By: #### P REGU #### [facility] [address] [place] [address] Dr. Moris Winter MANUAL DIFF REQ NO Normal [facility] Comment on above: Performed By: #### P REGU #### [facility] [address] [place] [address] Dr. Moris Winter MCH (RBC) [Entitic mass] 27.3 pg Normal 26.7-34.0 [facility] Comment on above: Performed By: #### P REGU #### [facility] [address] [place] [address] Dr. Moris Winter MCHC (RBC) [Mass/Vol] 35.3 g/dL Critically high 29.9-35.2 [facility] Comment on above: Performed By: #### P REGU #### [facility] [address] [place] [address] Dr. Moris Winter MCV (RBC) [Entitic vol] 77.3 fL Critically low 81.0-99.0 [facility] Comment on above: Performed By: #### P REGU #### [facility] [address] [place] [address] Dr. Moris Winter MONO # 0.5 103/ul Normal 0.3-0.8 [facility] Comment on above: Performed By: #### P REGU #### [facility] [address] [place] [address] Dr. Moris Winter Monocytes/100 WBC (Bld) 5.4 % Normal 1.7-12.0 [facility] Comment on above: Performed By: #### P REGU #### [facility] [address] [place] [address] Dr. Moris Wintre NEUT # 6.5 103/ul Normal 1.4-6.5 [facility] Comment on above: Performed By: #### P REGU #### [facility] [address] [place] [address] Dr. Moris Winter Neutrophils/100 WBC (Bld) 78.9 % Critically high 43.0-75.0 [facility] Comment on above: Performed By: #### P REGU #### [facility] [address] [place] [address] Dr. Moris Winter Platelet mean volume (Bld) [Entitic vol] 10.1 fL Normal 9.5-13.5 [facility] Comment on above: Performed By: #### P REGU #### [facility] [address] [place] [address] Dr. Moris Winter PLT 256 103/ul Normal 150-450 [facility] Comment on above: Performed By: #### P REGU #### [facility] [address] [place] [address] Dr. Moris Winter RBC 4.84 106/ul Normal 4.20-5.40 [facility] Comment on above: Performed By: #### P REGU #### [facility] [address] [place] [address] Dr. Moris Winter WBC 8.3 103/ul Normal 4.0-11.0 [facility] Comment on above: Performed By: #### P REGU #### [facility] [address] [address] [address] Moris Winter CRPon 03-15-2022 CRP 3.3 mg/dL Critically high <=1.0 [facility] Comment on above: Performed By: #### B MP, CRP #### [facility] [address] [place] [address] Dr. Moris Winter URon 03-15-2022 , QUAL Negative Normal NEGATIVE [facility] Comment on above: Performed By: #### P REGU #### [facility] [address] [place] [address] Dr. Moris Winter PROF CHEM 8 (BAS METB)on Anion gap [Moles/Vol] 15.8 mmol/L Normal [facility] Comment on above: Performed By: #### B MP, CRP #### [facility] [address] [place] [address] Dr. Moris Winter Calcium [Mass/Vol] 8.6 mg/dL Normal 8.5-10.1 [facility] Comment on above: Performed By: #### B MP, CRP #### [facility] [address] [place] [address] Dr. Moris Winter Chloride [Moles/Vol] 98 mmol/L Normal 98-107 [facility] Comment on above: Performed By: #### B MP, CRP #### [facility] [address] [place] [address] Dr. Moris Winter CO2 [Moles/Vol] 26.7 mmol/L Normal 21.0-32.0 [facility] Comment on above: Performed By: #### B MP, CRP #### [facility] [address] [place] [address] Dr. Moris Winter Creatinine [Mass/Vol] 0.80 mg/dL Normal 0.55-1.02 [facility] Comment on above: Performed By: #### B MP, CRP #### [facility] [address] [place] [address] Dr. Moris Winter EGFR-AF PALAUAN >60 Normal >=60 [facility] Comment on above: Performed By: #### B MP, CRP #### [facility] [address] [address] [address] Moris Winter EGFR-NON AF PALAUAN >60 Normal >=60 [facility] Comment on above: Performed By: #### B MP, CRP #### [facility] [address] [address] [address] Moris Winter Glucose [Mass/Vol] 103 mg/dL Normal 74-106 [facility] Comment on above: Performed By: #### B MP, CRP #### [facility] [address] [address] [address] Moris Winter Potassium [Moles/Vol] 3.5 mmol/L Normal 3.5-5.1 [facility] Comment on above: Performed By: #### B MP, CRP #### [facility] [address] [address] [address] Moris Winter Sodium [Moles/Vol] 137 mmol/L Normal 136-145 [facility] Comment on above: Performed By: #### B MP, CRP #### [facility] [address] [address] [address] Moris Winter Urea nitrogen [Mass/Vol] 15.0 mg/dL Normal 7.0-18.0 [facility] Comment on above: Performed By: #### B MP, CRP #### [facility] [address] [address] [address] Moris Winter Urea nitrogen/Creatinine [Mass ratio] 18.8 mg/mg Normal [facility] Comment on above: Performed By: #### B MP, CRP #### [facility] [address] [address] [address] Moris Winter SED RATE [facility] 2022 SED RATE 51 mm/hr Critically high <=20 [facility] Comment on above: Performed By: #### P REGU #### [facility] [address] [address] [address] Moris Winter Amphetamine Screen Ql (U)Ord ered By: TELMA Smith on 10-18-2021 Amphetamines Ql (U) Negative Negative [facility] Automated erythrocytes count in urine sediment (number/area)Ordered By: TELMA Smith on 10-18-2021 RBC Auto (Urine sed) [#/Area] 1-2 [HPF] 0-4 [facility] Automated leukocytes count i n urine sediment (number/area)Ordered By: TELMA Smith on 10-18-2021 WBC Auto (Urine sed) [#/Area] 20-49 [HPF] 0-4 [facility] Barbiturates [Presence] in U rineOrdered By: TELMA Smith on 10-18-2021 Barbiturates Ql (U) Negative Negative [facility] Basophils Auto (Bld) [#/Vol] Ordered By: TELAM Smith on 10-18-2021 Basophils (Bld) [#/Vol] 0.0 10*3/uL 0.0-0.2 [facility] Basophils/100 WBC Auto (Bld) Ordered By: TELMA Smith on 10-18-2021 Basophils/100 WBC (Bld) 0.3 % . [facility] Benzodiazepines [Presence] i n UrineOrdered By: TELMA Smith on 10-18-2021 Benzodiazepines Ql (U) Negative Negative [facility] Bilirubin Test strip Ql (U)O rdered By: TELMA Smith on 10-18-2021 Bilirubin Ql (U) Negative Negative [facility] Blood hemoglobin measurement (mass/volume)Ordered By: TELMA Smith on 10-18-2021 Hemoglobin (Bld) [Mass/Vol] 11.3 g/dL 11.8-15.4 [facility] Blood leukocytes automated c ount (number/volume)Ordered By: TELMA Smith on 10-18-2021 WBC (Bld) [#/Vol] 10.1 10*3/uL 4.5-11.0 [facility] COVID-19 SOFIAOrdered By: MD DESEAN Smith on 10-18-2021 SARS-CoV+SARS-CoV-2 (COVID-19) Ag IA.rapid Ql (Resp) Negative Negative [facility] Comment on above: This is a duplicate [place] SARS Antigen (AUTUMN) result to be used for statistical tracking purpose only. Color Auto (U)Ordered By: MD DESEAN Smith on 10-18-2021 Color (U) Yellow Yellow [facility] Eosinophils Auto (Bld) [#/Vo l]Ordered By: TELMA Smith on 10-18-2021 Eosinophils (Bld) [#/Vol] 0.1 10*3/uL 0.0-0.45 [facility] Eosinophils/100 WBC Auto (Bl d)Ordered By: TELMA Smith on 10-18-2021 Eosinophils/100 WBC (Bld) 1.3 % . [facility] Erythrocyte distribution wid th Auto (RBC) [Ratio]Ordered By: TELMA Smith on 10-18-2021 Erythrocyte distribution width (RBC) [Ratio] 15.6 % 11.9-15.3 [facility] Hematocrit Auto (Bld) [Volum e fraction]Ordered By: TELMA Smith on 10-18-2021 Hematocrit (Bld) [Volume fraction] 34.9 % 34.0-46.4 [facility] Ketones Auto test strip (U) [Mass/Vol]Ordered By: TELMA Smith on 10-18-2021 Ketones (U) [Mass/Vol] [facility] Ordered By: TELMA Smith on 10-18-2021 Opiates Ql (U) Negative Negative [facility] Laboratory - Hematology and Cell countsOrdered By: TELMA Smith on 10-18-2021 Nucleated RBC/100 WBC (Bld) [Ratio] 0.1 % 0-0.5 [facility] Laboratory - UrinalysisOrder ed By: TELMA Smith on 10-18-2021 Hyaline casts LM Ql (Urine sed) 9-19 [LPF] 0-8 [facility] Lymphocytes Auto (Bld) [#/Vo l]Ordered By: TELMA Smith on 10-18-2021 Lymphocytes (Bld) [#/Vol] 1.7 10*3/uL 1.00-4.8 [facility] Lymphocytes/100 WBC Auto (Bl d)Ordered By: TELMA Smith on 10-18-2021 Lymphocytes/100 WBC (Bld) 17.0 % . [facility] MCH Auto (RBC) [Entitic mass ]Ordered By: TELMA Smith on 10-18-2021 MCH (RBC) [Entitic mass] 25.9 pg 24.7-34.3 [facility] MCHC Auto (RBC) [Mass/Vol]Or dered By: TELMA Smith on 10-18-2021 MCHC (RBC) [Mass/Vol] 32.5 g/dL 32.0-35.0 [facility] MCV Auto (RBC) [Entitic vol] Ordered By: TELMA Smith on 10-18-2021 MCV (RBC) [Entitic vol] 79.6 fL 80-100 [facility] Monocytes Auto (Bld) [#/Vol] Ordered By: TELMA Smith on 10-18-2021 Monocytes (Bld) [#/Vol] 0.8 10*3/uL 0.0-0.8 [facility] Monocytes/100 WBC Auto (Bld) Ordered By: TELMA Smith on 10-18-2021 Monocytes/100 WBC (Bld) 8.1 % . [facility] Neutrophils Auto (Bld) [#/Vo l]Ordered By: TELMA Smith on 10-18-2021 Neutrophils (Bld) [#/Vol] 7.4 10*3/uL 1.8-7.7 [facility] Neutrophils/100 WBC Auto (Bl d)Ordered By: TELMA Smith on 10-18-2021 Neutrophils/100 WBC (Bld) 73.3 % . [facility] Nitrite Test strip Ql (U)Ord ered By: TELMA Smith on 10-18-2021 Nitrite Ql (U) Negative Negative [facility] No Panel InformationOrdered By: TELMA Smith on 10-18-2021 SARS Antigen (LFIA) [facility] Phencyclidine Screen Ql (U)O rdered By: TELMA Smith on 10-18-2021 Phencyclidine Ql (U) Negative Negative [facility] Comment on above: These are unconfirme d results and should not be used for legal purposes. Drug Cut-Off Concentration: AMPH 1000 ng/mL FAVIOLA 200 ng/mL THA 200 ng/mL COCM 300 ng/mL OP 300 ng/mL PCP 25 ng/mL Platelet mean volume Auto (B ld) [Entitic vol]Ordered By: TELMA Smith on 10-18-2021 Platelet mean volume (Bld) [Entitic vol] 9.7 fL 6.3-10.7 [facility] Platelets Auto (Bld) [#/Vol] Ordered By: TELMA Smith on 10-18-2021 Platelets (Bld) [#/Vol] 190 10*3/uL 150-450 [facility] Protein Auto test strip (U) [Mass/Vol]Ordered By: TELMA Smith on 10-18-2021 Protein (U) [Mass/Vol] Trace mg/dL Negative F [facility] RBC Auto (Bld) [#/Vol]Ordere d By: TELMA Smith on 10-18-2021 RBC (Bld) [#/Vol] 4.38 10*6/uL 3.60-5.00 [facility] S. agalactiae Org specific c x Ql (Unsp spec)Ordered By: Radha Molina on 10-18-2021 Group B Streptococcus Culture Strep. agalactiae Grp B [facility] Specific gravity Auto test s trip (U) [Rel density]Ordered By: TELMA Smith on 10-18-2021 Specific gravity (U) [Rel density] 1.020 1.001-1.03 0 [facility] Squamous epithelial cells de tection in urine sediment by light microscopyOrdered By: TELMA Smith on 10-18-2021 Epithelial cells.squamous LM Ql (Urine sed) 5-9 [HPF] 0-2 [facility] Urine bacteria detection by automated methodOrdered By: TELMA Smith on 10-18-2021 Bacteria Auto Ql (U) 1+ None Seen [facility] Urine clarity by refractomet ry automatedOrdered By: TELMA Smith on 10-18-2021 Clarity Refractometry automated (U) Cloudy Clear [facility] Urine cocaine detectionOrder ed By: TELMA Smith on 10-18-2021 Cocaine Ql (U) Negative Negative [facility] Urine glucose measurement by automated test strip (mass/volume)Ordered By: SHELLIE Smith on 10-18-2021 Glucose Auto test strip (U) [Mass/Vol] Normal mg/dL Normal [facility] Urine hemoglobin detection b y automated test stripOrdered By: TELMA Smith on 10-18-2021 Hemoglobin Auto test strip Ql (U) Negative Negative [facility] Urine leukocyte esterase det ection by automated test stripOrdered By: TELMA Smith on 10-18-2021 Leukocyte esterase Auto test strip Ql (U) 3+ Negative [facility] Urobilinogen Auto test strip (U) [Mass/Vol]Ordered By: TELMA Smith on 10-18-2021 Urobilinogen (U) [Mass/Vol] Normal mg/dL Normal [facility] pH Auto test strip (U)Ordere d By: TELMA Smith on 10-18-2021 pH (U) 6.5 [pH] 5.0-9.0 [facility] UA (CLEAN/CATCH) 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 Moris Winter Clarity (U) SL CLOUDY Abnormal CLEAR [facility] Comment on above: Performed By: #### U JALEEL AVALOSRO #### [facility] [address] [address] [address] Moris Winter Color (U) LT. YELLOW Normal YELLOW [facility] Comment on above: Performed By: #### U ACSNARENDRA UMICRO #### [facility] [address] [address] [address] Moris Winter Glucose Ql (U) Negative Normal NEGATIVE [facility] Comment on above: Performed By: #### U ACSIND, UMICRO #### [facility] [address] [address] [address] Moris Winter Hemoglobin Ql (U) TRACE-INTACT Abnormal NEGATIVE [facility] Comment on above: Performed By: #### U ACSIND, UMICRO #### [facility] [address] [address] [address] Moris Winter Ketones Ql (U) Negative Normal NEGATIVE [facility] Comment on above: Performed By: #### U ACSIND, UMICRO #### [facility] [address] [place] [address] Dr. Moris Winter LEUKOCYTES TRACE Abnormal NEGATIVE [facility] Comment on above: Performed By: #### U ACSIND UMICRO #### [facility] [address] [address] [address] Moris Winter Nitrite Ql (U) Negative Normal NEGATIVE [facility] Comment on above: Performed By: #### U ACSNARENDRA UMICRO #### [facility] [address] [place] [address] Dr. Moris Winter pH (U) 7.0 [pH] Normal 5-9 [facility] Comment on above: Performed By: #### U ACSNARENDRA UMICRO #### [facility] [address] [address] [address] Moris Winter SPEC GRAVITY 1.010 Normal 1.005-<=1. 025 [facility] Comment on above: Performed By: #### U ACSIND, UMICRO #### [facility] [address] [place] [address] Dr. Moris Winter UA PROTEIN Negative Normal NEGATIVE/ TRACE [facility] Comment on above: Performed By: #### U ACSIND, UMICRO #### [facility] [address] [place] [address] Dr. Moris Winter UR MICRO IND INDICATED Normal [facility] Comment on above: Performed By: #### U ACSIND, UMICRO #### [facility] [address] [address] [address] Moris Winter Urobilinogen Qn (U) 0.2 {Marcin'U}/dL Normal 0.2 - 1. 0 [facility] Comment on above: Performed By: #### U ACSIND, UMICRO #### [facility] [address] [address] [address] Moris Winter URINE MICROSCOPIC ONLYon BACTERIA NONE SEEN Normal NONE SEEN [facility] Comment on above: Performed By: #### U ACSIND, UMICRO #### [facility] [address] [place] [address] Dr. Moris Winter Bacteria identified Cx Nom (U) NOT INDICATED Normal [facility] Comment on above: Performed By: #### U ACSIND, UMICRO #### [facility] [address] [place] [address] Dr. Moris Winter CAST NONE SEEN Normal NONE SEEN [facility] Comment on above: Performed By: #### U ACSIND, UMICRO #### [facility] [address] [address] [address] Moris Winter Crystals LM Nom (Urine sed) NONE SEEN Normal NONE SEEN [facility] Comment on above: Performed By: #### U ACSIND, UMICRO #### [facility] [address] [place] [address] Dr. Moris Winter Epithelial cells LM Ql (Urine sed) MODERATE Abnormal NONE SEEN /RARE [facility] Comment on above: Performed By: #### U ACSIND, UMICRO #### [facility] [address] [address] [address] Moris Winter MUCOUS NONE SEEN Normal NONE SEEN [facility] Comment on above: Performed By: #### U ACSIND, UMICRO #### [facility] [address] [address] [address] Moris Winter RBC 0-2 Normal 0-2 [facility] Comment on above: Performed By: #### U ACSIND, UMICRO #### [facility] [address] [address] [address] Moris Winter WBC 0-2 Abnormal NONE SEEN [facility] Comment on above: Performed By: #### U JOANN AVALOS #### [facility] [address] [place] [address] Dr. Moris Winter Covid-19 PCR ([facility])on 07-17 SARS-CoV-2 (COVID-19) RNA SVETLANA+probe Ql (Unsp spec) Detected Critically abnormal NOT DETECTED [facility] Comment on above: Result Comment: This test is not yet approved or cleared by the [place] FDA. When there are no FDA-approved or cleared tests available, and other criteria are met, FDA can make tests available under an emergency access mechanism called an Emergency Use Authorization (EUA). The EUA for this test is supported by the Multiplex Operator of Health and Human Service's declaration that [...] used). Performed By: #### P REGU #### [facility] [address] [place] [address] Dr. Moris Winter INFLUENZA A [facility]on 08[facility] Normal [facility] Comment on above: Result Comment: Nega tive for Flu A protein angiten. Infection due to Flu A cannot be ruled out. Flu A angiten in the sample may be below the detection limit of the test. Performed By: #### P REGU #### [facility] [address] [place] [address] Dr. Moris Winter INFLUBNEG SEE BELOW Normal [facility] Comment on above: Result Comment: Nega tive for Flu B protein antigen. Infection due to Flu B cannot be ruled out. Flu B antigen in the sample may be below the detection limit of the test. Performed By: #### P REGU #### [facility] [address] [place] [address] Dr. Moris Winter INFLUENZA A AG Negative Normal NEGATIVE SEE COMMENT [facility] Comment on above: Performed By: #### P REGU #### [facility] [address] [address] [address] Moris Winter INFLUENZA B AG Negative Normal NEGATIVE SEE COMMENT [facility] Comment on above: Performed By: #### P REGU #### [facility] [address] [address] [address] Moris Winter INTERNAL CONTROLS Within Normal Limits Normal Wi thin Normal Limits [facility] Comment on above: Performed By: #### P REGU #### [facility] [address] [address] [address] Moris Winter Serum or plasma beta choriog onadotropin measurement (units/volume)Ordered By: Radha Molina on 07-21-2021 [place] [address].00 m[IU]/mL [facility] Comment on above: Approximate Approxim ate hCG Gestational Age Range (mIU/ml) (weeks) 0.2-1 5-50 1-2 50-500 2-3 100-5,000 3-4 500-10,000 4-5 1,000-50,000 5-6 10,000-100,000 6-8 15,000-200,000 8-12 10,000-100,000 Operative Reporton 9 Operative Report MR#: [id number] [facility] Pt. Name: Rosette Alba Room #: OR Discharge Date: Birthdate: 2000 OPERATIVE REPORT DATE OF SURGERY: 08/03/2018 SURGEON: Shalra Hicks M.D. ASSISTANTS: 1. Art Mancilla M.D. [...] placed Adaptic under the skin using a [place] and tied this down with a 5-0 [...] Carballo MD Date Trans: 08/03/2018 08:27 P/antony [id number] cc: Soraya Romo [address] [place] [id number] Normal [facility] POC GLUCOSE LABon 08-03-2018 Glucose [Mass/Vol] 105 mg/dL High 70-100 [facility] Comment on above: Performed By: #### [id number] #### [facility] [address] POC URINE PREGNANCYon 2018 Beta HCG ( test) Ql (U) Negative Normal NEGATIVE [facility] Comment on above: Result Comment: Perf ormed in PACU Performed By: #### [id number] #### [facility] [address] [place] [address], [facility] Vital Signs Date Time Vital Sign Value Performing Clinician Facility 06-15-2024 14:03-0400 Body mass index (BMI) [Ratio] 42.3 kg/m2 Riya Alexander DIE TRIMMER Work Phone: [facility] 06-15-2024 14:03-0400 Body weight 108.32 kg Riya Alexander DIE TRIMMER Work Phone: [facility] 06-15-2024 14:03-0400 Diastolic blood pressure 70 mm[Hg] Riya Alexander DIE TRIMMER Work Phone: [facility] 06-15-2024 14:03-0400 Systolic blood pressure 118 mm[Hg] Riya Alexander DIE TRIMMER Work Phone: [facility] 06-01-2024 09:56-0400 Body mass index (BMI) [Ratio] 41.72 kg/m2 Camacho Mary DO Work Phone: [facility] 06-01-2024 09:56-0400 Body weight 106.82 kg Camacho Mary DO Work Phone: [facility] 06-01-2024 09:56-0400 Diastolic blood pressure 66 mm[Hg] Camacho Mary DO Work Phone: [facility] 06-01-2024 09:56-0400 Systolic blood pressure 110 mm[Hg] Camacho Mary DO Work Phone: [facility] 05-29-2024 12:36-0400 Body mass index (BMI) [Ratio] 40.57 kg/m2 Trudy Cool DIE TRIMMER Work Phone: [facility] 05-29-2024 12:36-0400 Body temperature 98.2 [degF] Trudy Cool DIE TRIMMER Work Phone: [facility] 05-29-2024 12:36-0400 Body weight 103.87 kg Trudy Cool DIE TRIMMER Work Phone: [facility] 05-29-2024 12:36-0400 Heart rate 113 /min Trudy Cool DIE TRIMMER Work Phone: [facility] 05-29-2024 12:36-0400 SaO2% (BldA) [Mass fraction] 97 % Trudy Cool DIE TRIMMER Work Phone: [facility] 05-04-2024 11:14-0400 Body mass index (BMI) [Ratio] 40.59 kg/m2 Camacho Mary DO Work Phone: [facility] 05-04-2024 11:14-0400 Body weight 103.93 kg Camacho Mary DO Work Phone: [facility] 05-04-2024 11:14-0400 Diastolic blood pressure 70 mm[Hg] Camacho Mary DO Work Phone: [facility] 05-04-2024 11:14-0400 Systolic blood pressure 126 mm[Hg] Camacho Mary DO Work Phone: [facility] 04-13-2024 11:56-0500 Body height 160 cm Ni Carroll MD Work Phone: [facility] 04-13-2024 11:56-0500 Body mass index (BMI) [Ratio] 40.19 kg/m2 Ni Carroll MD Work Phone: [facility] 04-13-2024 11:56-0500 Body weight 102.88 kg Ni Carroll MD Work Phone: [facility] 04-13-2024 11:56-0500 Diastolic blood pressure 64 mm[Hg] Ni Carroll MD Work Phone: [facility] 04-13-2024 11:56-0500 Heart rate 98 /min Ni Carroll MD Work Phone: [facility] 04-13-2024 11:56-0500 Systolic blood pressure 116 mm[Hg] Ni Carroll MD Work Phone: [facility] 04-06-2024 11:45-0500 Body mass index (BMI) [Ratio] 40.46 kg/m2 Kim Khoury PA Work Phone: [facility] 04-06-2024 11:45-0500 Body weight 103.6 kg Kim Khoury PA Work Phone: [facility] 04-06-2024 11:45-0500 Diastolic blood pressure 70 mm[Hg] Kim Khoury PA Work Phone: [facility] 04-06-2024 11:45-0500 Systolic blood pressure 114 mm[Hg] Kim Khoury PA Work Phone: [facility] 03-09-2024 10:38-0500 Body mass index (BMI) [Ratio] 39.17 kg/m2 Camacho Mary DO Work Phone: [facility] 03-09-2024 10:38-0500 Body weight 100.31 kg Camacho Mary DO Work Phone: [facility] 03-09-2024 10:38-0500 Diastolic blood pressure 60 mm[Hg] Camacho Mary DO Work Phone: [facility] 03-09-2024 10:38-0500 Systolic blood pressure 116 mm[Hg] Camacho Mary DO Work Phone: [facility] 10-20-2023 08:28-0400 Body height 160.02 cm DIE TRIMMER-C Nataly Spasic Work Phone: [facility] 10-20-2023 08:28-0400 Body mass index (BMI) [Ratio] 38 kg/m2 DIE TRIMMER-C Nataly Spasic Work Phone: [facility] 10-20-2023 08:28-0400 Body temperature 97.7 [degF] DIE TRIMMER-C Nataly Spasic Work Phone: [facility] 10-20-2023 08:28-0400 Body weight 97.52 kg DIE TRIMMER-C Nataly Spasic Work Phone: [facility] 10-20-2023 08:28-0400 Diastolic blood pressure 74 mm[Hg] DIE TRIMMER-C Nataly Spasic Work Phone: [facility] 10-20-2023 08:28-0400 Heart rate 75 /min DIE TRIMMER-C Nataly Spasic Work Phone: [facility] 10-20-2023 08:28-0400 Respiratory rate 18 /min DIE TRIMMER-C Nataly Spasic Work Phone: [facility] 10-20-2023 08:28-0400 SaO2% (BldA) [Mass fraction] 99 % DIE TRIMMER-C Nataly Spasic Work Phone: [facility] 10-20-2023 08:28-0400 Systolic blood pressure 107 mm[Hg] DIE TRIMMER-C Nataly Spasic Work Phone: [facility] 10-04-2023 22:40-0400 Body height 160.02 cm DIE TRIMMER-C Nataly Spasic Work Phone: [facility] 10-04-2023 22:40-0400 Body temperature 97.7 [degF] DIE TRIMMER-C Nataly Spasic Work Phone: [facility] 10-04-2023 22:40-0400 Body weight 95.5 kg DIE TRIMMER-C Nataly Spasic Work Phone: [facility] 10-04-2023 22:40-0400 Diastolic blood pressure 75 mm[Hg] DIE TRIMMER-C Nataly Spasic Work Phone: [facility] 10-04-2023 22:40-0400 Heart rate 95 /min DIE TRIMMER-C Nataly Spasic Work Phone: [facility] 10-04-2023 22:40-0400 Respiratory rate 16 /min DIE TRIMMER-C Nataly Spasic Work Phone: [facility] 10-04-2023 22:40-0400 SaO2% (BldA) [Mass fraction] 98 % DIE TRIMMER-C Nataly Spasic Work Phone: [facility] 10-04-2023 22:40-0400 Systolic blood pressure 132 mm[Hg] DIE TRIMMER-C Nataly Spasic Work Phone: [facility] 09-26-2023 21:36-0400 Body temperature 98.1 [degF] DIE TRIMMER-C Nataly Spasic Work Phone: [facility] 09-26-2023 21:36-0400 Diastolic blood pressure 74 mm[Hg] DIE TRIMMER-C Nataly Spasic Work Phone: [facility] 09-26-2023 21:36-0400 Heart rate 90 /min DIE TRIMMER-C Nataly Spasic Work Phone: [facility] 09-26-2023 21:36-0400 Respiratory rate 16 /min DIE TRIMMER-C Nataly Spasic Work Phone: [facility] 09-26-2023 21:36-0400 SaO2% (BldA) [Mass fraction] 99 % DIE TRIMMER-C Nataly Spasic Work Phone: [facility] 09-26-2023 21:36-0400 Systolic blood pressure 145 mm[Hg] DIE TRIMMER-C Nataly Spasic Work Phone: [facility] 09-26-2023 21:35-0400 Body height 160.02 cm DIE TRIMMER-C Nataly Spasic Work Phone: [facility] 09-26-2023 21:35-0400 Body weight 96.7 kg DIE TRIMMER-C Nataly Spasic Work Phone: [facility] 08-20-2023 23:05-0400 Body height 160.02 cm DIE TRIMMER-C Nataly Spasic Work Phone: [facility] 08-20-2023 23:05-0400 Body temperature 98.3 [degF] DIE TRIMMER-C Nataly Spasic Work Phone: [facility] 08-20-2023 23:05-0400 Body weight 97.5 kg DIE TRIMMER-C Nataly Spasic Work Phone: [facility] 08-20-2023 23:05-0400 Diastolic blood pressure 66 mm[Hg] DIE TRIMMER-C Nataly Spasic Work Phone: [facility] 08-20-2023 23:05-0400 Heart rate 90 /min DIE TRIMMER-C Nataly Spasic Work Phone: [facility] 08-20-2023 23:05-0400 Respiratory rate 20 /min DIE TRIMMER-C Nataly Spasic Work Phone: [facility] 08-20-2023 23:05-0400 SaO2% (BldA) [Mass fraction] 99 % DIE TRIMMER-C Nataly Spasic Work Phone: [facility] 08-20-2023 23:05-0400 Systolic blood pressure 136 mm[Hg] DIE TRIMMER-C Nataly Spasic Work Phone: [facility] 02-13-2023 21:40-0500 Body temperature 97.7 [degF] DIE TRIMMER-C Nataly Spasic Work Phone: [facility] 02-13-2023 21:40-0500 Diastolic blood pressure 87 mm[Hg] DIE TRIMMER-C Nataly Spasic Work Phone: [facility] 02-13-2023 21:40-0500 Heart rate 100 /min DIE TRIMMER-C Nataly Spasic Work Phone: [facility] 02-13-2023 21:40-0500 Respiratory rate 18 /min DIE TRIMMER-C Nataly Spasic Work Phone: [facility] 02-13-2023 21:40-0500 SaO2% (BldA) [Mass fraction] 96 % DIE TRIMMER-C Nataly Spasic Work Phone: [facility] 02-13-2023 21:40-0500 Systolic blood pressure 140 mm[Hg] DIE TRIMMER-C Nataly Spasic Work Phone: [facility] 02-13-2023 11:10-0500 Body height 160.02 cm DIE TRIMMER-C Nataly Spasic Work Phone: [facility] 02-13-2023 11:10-0500 Body weight 99.79 kg DIE TRIMMER-C Nataly Spasic Work Phone: [facility] 02-01-2023 19:30-0500 Body temperature 97.3 [degF] DIE TRIMMER-C Nataly Spasic Work Phone: [facility] 02-01-2023 19:30-0500 Diastolic blood pressure 75 mm[Hg] DIE TRIMMER-C Nataly Spasic Work Phone: [facility] 02-01-2023 19:30-0500 Heart rate 94 /min DIE TRIMMER-C Nataly Spasic Work Phone: [facility] 02-01-2023 19:30-0500 Respiratory rate 14 /min DIE TRIMMER-C Nataly Spasic Work Phone: [facility] 02-01-2023 19:30-0500 SaO2% (BldA) [Mass fraction] 98 % DIE TRIMMER-C Nataly Spasic Work Phone: [facility] 02-01-2023 19:30-0500 Systolic blood pressure 123 mm[Hg] DIE TRIMMER-C Nataly Spasic Work Phone: [facility] 01-31-2023 09:00-0500 Body temperature 98 [degF] DIE TRIMMER-C Nataly Spasic Work Phone: [facility] 01-31-2023 09:00-0500 Respiratory rate 16 /min DIE TRIMMER-C Nataly Spasic Work Phone: [facility] 01-31-2023 08:46-0500 Diastolic blood pressure 57 mm[Hg] DIE TRIMMER-C Nataly Spasic Work Phone: [facility] 01-31-2023 08:46-0500 Heart rate 112 /min DIE TRIMMER-C Nataly Spasic Work Phone: [facility] 01-31-2023 08:46-0500 Systolic blood pressure 112 mm[Hg] DIE TRIMMER-C Nataly Spasic Work Phone: [facility] 01-31-2023 06:31-0500 SaO2% (BldA) [Mass fraction] 96 % DIE TRIMMER-C Nataly Spasic Work Phone: [facility] 01-31-2023 00:08-0500 Body height 160.02 cm DIE TRIMMER-C Nataly Spasic Work Phone: [facility] 01-31-2023 00:08-0500 Body weight 97.52 kg DIE TRIMMER-C Nataly Spasic Work Phone: [facility] 01-21-2023 09:56-0500 Body height 157.48 cm DIE TRIMMER-C Nataly Spasic Work Phone: [facility] 01-21-2023 09:56-0500 Body weight 81.64 kg DIE TRIMMER-C Nataly Spasic Work Phone: [facility] 12-01-2022 18:06-0400 Diastolic blood pressure 75 mm[Hg] DIE TRIMMER-C Nataly Spasic Work Phone: [facility] 12-01-2022 18:06-0400 Heart rate 109 /min DIE TRIMMER-C Nataly Spasic Work Phone: [facility] 12-01-2022 18:06-0400 Respiratory rate 17 /min DIE TRIMMER-C Nataly Spasic Work Phone: [facility] 12-01-2022 18:06-0400 SaO2% (BldA) [Mass fraction] 99 % DIE TRIMMER-C Nataly Spasic Work Phone: [facility] 12-01-2022 18:06-0400 Systolic blood pressure 123 mm[Hg] DIE TRIMMER-C Nataly Spasic Work Phone: [facility] 12-01-2022 14:32-0400 Body height 160.02 cm DIE TRIMMER-C Natlay Spasic Work Phone: [facility] 12-01-2022 14:32-0400 Body temperature 97.6 [degF] DIE TRIMMER-C Nataly Spasic Work Phone: [facility] 12-01-2022 14:32-0400 Body weight 101.2 kg DIE TRIMMER-C Nataly Spasic Work Phone: [facility] 11-20-2022 19:00-0400 Respiratory rate 16 /min DIE TRIMMER-C Nataly Spasic Work Phone: [facility] 11-20-2022 18:14-0400 Diastolic blood pressure 65 mm[Hg] DIE TRIMMER-C Nataly Spasic Work Phone: [facility] 11-20-2022 18:14-0400 Heart rate 100 /min DIE TRIMMER-C Nataly Spasic Work Phone: [facility] 11-20-2022 18:14-0400 Systolic blood pressure 131 mm[Hg] DIE TRIMMER-C Nataly Spasic Work Phone: [facility] 11-20-2022 18:05-0400 SaO2% (BldA) [Mass fraction] 99 % DIE TRIMMER-C Nataly Spasic Work Phone: [facility] 11-20-2022 17:21-0400 Body height 160.02 cm DIE TRIMMER-C Nataly Spasic Work Phone: [facility] 11-20-2022 17:21-0400 Body weight 98.88 kg DIE TRIMMER-C Nataly Spasic Work Phone: [facility] 11-19-2022 13:49-0400 Respiratory rate 16 /min DIE TRIMMER-C Nataly Spasic Work Phone: [facility] 11-19-2022 13:30-0400 Body temperature 97.4 [degF] DIE TRIMMER-C Nataly Spasic Work Phone: [facility] 11-19-2022 12:53-0400 Diastolic blood pressure 71 mm[Hg] DIE TRIMMER-C Nataly Spasic Work Phone: [facility] 11-19-2022 12:53-0400 Heart rate 109 /min DIE TRIMMER-C Nataly Spasic Work Phone: [facility] 11-19-2022 12:53-0400 Systolic blood pressure 125 mm[Hg] DIE TRIMMER-C Nataly Spasic Work Phone: [facility] 11-19-2022 12:49-0400 SaO2% (BldA) [Mass fraction] 99 % DIE TRIMMER-C Nataly Spasic Work Phone: [facility] 11-19-2022 12:23-0400 Body height 160.02 cm DIE TRIMMER-C Nataly Shayleesaeed Work Phone: [facility] 11-19-2022 12:23-0400 Body weight 98.88 kg DIE TRIMMER-C Nataly Spaaprilc Work Phone: [facility] 10-18-2021 05:08-0400 Diastolic blood pressure 58 mm[Hg] DO Obdulia Oneil Work Phone: [facility] 10-18-2021 05:08-0400 Heart rate 96 /min DO Obdulia Oneil Work Phone: [facility] 10-18-2021 05:08-0400 SaO2% (BldA) [Mass fraction] 98 % DO Obdulia Oneil Work Phone: [facility] 10-18-2021 05:08-0400 Systolic blood pressure 118 mm[Hg] DO Obdulia Oneil Work Phone: [facility] 10-18-2021 05:00-0400 Body temperature 98.3 [degF] DO Obdulia Oneil Work Phone: [facility] 10-18-2021 05:00-0400 Respiratory rate 16 /min DO Obdulia Oneil Work Phone: [facility] 10-18-2021 01:57-0400 Body weight 102.51 kg DO Obdulia Oneil Work Phone: [facility] 10-18-2021 01:31-0400 Body height 160.02 cm DO Obdulia Oneil Work Phone: [facility] Encounters Encounter Date Encounter Type Care Provider Facility Start: 06-15-2024 End: 06-15-2024 Bamboo flowsheet Riya Alexander DIE TRIMMER Work Phone: [facility] Start: 06-15-2024 End: 06-15-2024 Bamboo flowsheet Riya Alexander DIE TRIMMER Work Phone: [facility] Start: 06-15-2024 End: 06-15-2024 Office outpatient visit 15 minutes Riya Alexander DIE TRIMMER Work Phone: [facility] Comment on above: Elevated glucose rayo erance test (Primary Dx); 30 weeks gestation of ; Third trimester Start: 06-15-2024 End: 06-15-2024 ambulatory RIYA ALEXANDER Not Available Start: 06-08-2024 End: 06-08-2024 ambulatory CAMACHO MARY Not Available Start: 06-01-2024 End: 06-01-2024 Office outpatient visit 15 minutes Camacho Mary DO Work Phone: [facility] Comment on above: Third trimester preg sascha; 28 weeks gestation of ; Upper respiratory tract infection, unspecified type; Chronic cluster headache, not intractable; History of delivery, currently ; Diet controlled gestational diabetes mellitus (GDM) in third trimester; Polyhydramnios affecting in third trimester Start: 06-01-2024 End: 06-01-2024 ambulatory CAMACHO MARY Not Available Start: 05-29-2024 End: 05-29-2024 Office outpatient new 45 minutes Trudy Cool DIE TRIMMER Work Phone: [facility] Comment on above: Strep throat (Primar y Dx); Pharyngitis, unspecified etiology; 27 weeks gestation of Start: 05-29-2024 End: 05-29-2024 ambulatory TRUDY COOL Not Available Start: 05-25-2024 End: 05-25-2024 Clinisync Result Encounter Camacho Mary DO Work Phone: [facility] External Department Unsolicited Start: 05-25-2024 End: 05-25-2024 Clinisync Result Encounter Camacho Mary DO Work Phone: [facility] External Department Unsolicited Start: 05-04-2024 End: 05-04-2024 Office outpatient visit 15 minutes Camacho Mary DO Work Phone: [facility] Comment on above: Short cervix, antepa rtum (Primary Dx); 24 weeks gestation of ; Second trimester ; Diabetes mellitus screening; Nonintractable headache, unspecified chronicity pattern, unspecified headache type Start: 05-04-2024 End: 05-04-2024 ambulatory CAMACHO HERNANDEZ Not Available Start: 05-03-2024 End: 05-03-2024 ambulatory NI CARROLL [facility] Start: 04-14-2024 End: 04-14-2024 Clinisync Result Encounter Camacho Hernandez DO Work Phone: [facility] External Department Unsolicited Start: 04-14-2024 End: 04-14-2024 Clinisync Result Encounter Camacho Hernandez DO Work Phone: [facility] External Department Unsolicited Start: 04-13-2024 End: 04-13-2024 Office consultation new/estab patient 60 min Ni Carroll MD Work Phone: [facility] Comment on above: delivery aft er section (Primary Dx) Start: 04-13-2024 End: 04-13-2024 Orders Only Berenice Vyas RN [facility] Comment on above: History of d nay, [...] patient 18-39 yrs Kim QUICK Work Phone: [facility] Comment on above: Second trimester pre gnancy (Primary Dx); 20 weeks gestation of ; STD exposure; Well woman exam with routine gynecological exam; Vaginal discharge; History of delivery, currently ; URI, acute Start: 04-06-2024 End: 04-06-2024 ambulatory KIM KHOURY Not Available Start: 03-17-2024 End: 03-20-2024 Chart abstracting Ni Carroll MD Work Phone: [facility] Start: 03-14-2024 End: 03-14-2024 Clinisync Result Encounter Camacho Mary DO Work Phone: [facility] External Department Unsolicited Start: 03-14-2024 End: 03-14-2024 Clinisync Result Encounter Camacho Mary DO Work Phone: [facility] External Department Unsolicited Start: 03-09-2024 End: 03-09-2024 Bamboo flowsheet Camacho Mary DO Work Phone: [facility] Start: 03-09-2024 End: 03-09-2024 Bamboo flowsheet Camacho Mary DO Work Phone: [facility] Start: 03-09-2024 End: 03-09-2024 Office outpatient visit 15 minutes Camacho Mary DO Work Phone: [facility] Comment on above: Second trimester pre gnancy; 16 weeks gestation of ; History of delivery, currently ; Diabetes mellitus screening; History of gestational diabetes Start: 03-09-2024 End: 03-09-2024 ambulatory CAMACHO MARY Not Available Start: 02-25-2024 End: 02-25-2024 Clinisync Result Encounter Camacho Mary DO Work Phone: [facility] External Department Unsolicited Start: 02-25-2024 End: 02-25-2024 Clinisync Result Encounter Camacho Mary DO Work Phone: [facility] External Department Unsolicited Start: 02-03-2024 End: 02-03-2024 ambulatory [facility] Nurse [facility] Comment on above: GA: 11w1d Start: 11-03-2023 ambulatory Nataly E Spasic Facility :[facility] Start: 10-20-2023 Registered Recurring DIE TRIMMER-C Andrez a Spasic Work Phone: [facility] Work Phone: Start: 10-20-2023 End: 10-20-2023 ambulatory DIE TRIMMER-C Nataly E Spasic Work Phone: [facility] Work Phone: Start: 10-20-2023 End: 10-20-2023 Patient encounter procedure DIE TRIMMER-C Nataly Spasic Work Phone: [facility] Work Phone: Start: 10-07-2023 End: 10-07-2023 Patient encounter procedure DIE TRIMMER-C Nataly Spasic Work Phone: [facility] [place] Work Phone: Start: 10-07-2023 End: 10-07-2023 ambulatory DIE TRIMMER-C Nataly E Spasic Work Phone: [facility] Work Phone: Start: 10-04-2023 End: 10-05-2023 Emergency department patient visit DIE TRIMMER-C Nataly Spasic Work Phone: [facility] Work Phone: Start: 09-30-2023 End: 09-30-2023 ambulatory DIE TRIMMER-C Nataly E Spasic Work Phone: [facility] Work Phone: Start: 09-30-2023 End: 09-30-2023 Departed Referred DIE TRIMMER-C Nataly Spasic Work Phone: [facility] [place] Work Phone: Start: 09-26-2023 End: 09-27-2023 Emergency department patient visit DIE TRIMMER-C Nataly Spasic Work Phone: [facility] Work Phone: Start: 08-20-2023 End: 08-21-2023 Emergency department patient visit DIE TRIMMER-C Nataly Spasic Work Phone: [facility] Work Phone: Start: 08-03-2023 End: 08-03-2023 ambulatory Nataly E Spasic [facility] Work Phone: Start: 08-03-2023 End: 08-03-2023 Departed Referred DIE TRIMMER-C Nataly Spasic Work Phone: [facility] Start: 04-15-2023 End: 04-15-2023 ambulatory Nataly E Spasic Facility:[facility] Start: 03-17-2023 End: 03-17-2023 Patient encounter procedure PHYSICIAN NO [facility] [place] Work Phone: Start: 03-17-2023 End: 03-17-2023 ambulatory PHYSICIAN NO [facility] Work Phone: Start: 03-04-2023 End: 03-04-2023 ambulatory PHYSICIAN NO [facility] Work Phone: Start: 03-04-2023 End: 03-04-2023 Departed [facility] Start: 02-13-2023 End: 02-13-2023 Evaluation and management of inpatient DIE TRIMMER-C Nataly Spasic Work Phone: [facility] [place] Work Phone: Start: 02-01-2023 End: 02-01-2023 Patient encounter procedure DIE TRIMMER-C Nataly Spasic Work Phone: [facility] Labor - O/P Start: 02-01-2023 End: 02-01-2023 ambulatory DIE TRIMMER-C Nataly E Spasic Work Phone: [facility] Work Phone: Start: 01-30-2023 End: 01-31-2023 Patient encounter procedure DIE TRIMMER-C Nataly Spasic Work Phone: [facility] Labor - O/P Start: 01-30-2023 End: 01-31-2023 ambulatory DIE TRIMMER-C Nataly E Spasic Work Phone: [facility] Work Phone: Start: 01-22-2023 End: 01-22-2023 Patient encounter procedure DIE TRIMMER-C Nataly Spasic Work Phone: [facility] Labor - O/P Start: 01-22-2023 End: 01-22-2023 ambulatory DIE TRIMMER-C Nataly E Spasic Work Phone: [facility] Work Phone: Start: 01-21-2023 End: 01-21-2023 Patient encounter procedure DIE TRIMMER-C Nataly Spasic Work Phone: [facility] Labor - O/P Start: 01-21-2023 End: 01-21-2023 ambulatory DIE TRIMMER-C Nataly E Spasic Work Phone: [facility] Work Phone: Start: 01-05-2023 End: 01-05-2023 ambulatory DIE TRIMMER-C Nataly E Spasic Work Phone: [facility] Work Phone: Start: 01-05-2023 End: 01-05-2023 Departed Referred DIE TRIMMER-C Nataly Spasic Work Phone: [facility] [place] Work Phone: Start: 12-22-2022 End: 12-22-2022 Patient encounter procedure DIE TRIMMER-C Nataly Spasic Work Phone: [facility] [place] Work Phone: Start: 12-22-2022 End: 12-22-2022 ambulatory DIE TRIMMER-C Nataly E Spasic Work Phone: [facility] Work Phone: Start: 12-08-2022 End: 12-08-2022 ambulatory DIE TRIMMER-C Nataly E Spasic Work Phone: [facility] Work Phone: Start: 12-08-2022 End: 12-08-2022 Departed Referred DIE TRIMMER-C Nataly Spasic Work Phone: [facility] [place] Work Phone: Start: 12-03-2022 End: 12-03-2022 ambulatory DIE TRIMMER-C Nataly E Spasic Work Phone: [facility] Work Phone: Start: 12-03-2022 End: 12-03-2022 Departed Referred DIE TRIMMER-C Nataly Spasic Work Phone: [facility] Start: 12-01-2022 End: 12-01-2022 Emergency department patient visit DIE TRIMMER-C Nataly Spasic Work Phone: [facility] Work Phone: Start: 11-21-2022 End: 11-21-2022 ambulatory DIE TRIMMER-C Nataly E Spasic Work Phone: [facility] Work Phone: Start: 11-21-2022 End: 11-21-2022 Patient encounter procedure DIE TRIMMER-C Nataly Spasic Work Phone: [facility] [place] Labor - O/P Start: 11-20-2022 End: 11-20-2022 ambulatory DIE TRIMMER-C Nataly E Spasic Work Phone: [facility] Work Phone: Start: 11-20-2022 End: 11-20-2022 Patient encounter procedure DIE TRIMMER-C Nataly Spasic Work Phone: [facility] Labor - O/P Start: 11-19-2022 End: 11-19-2022 ambulatory DIE TRIMMER-C Nataly E Spasic Work Phone: [facility] Work Phone: Start: 11-19-2022 End: 11-19-2022 Patient encounter procedure DIE TRIMMER-C Nataly Spasic Work Phone: [facility] Labor - O/P Start: 07-13-2022 End: 07-14-2022 ambulatory PA ABDIRASHID HARDEN . Facility: Start: 06-23-2022 End: 06-23-2022 ambulatory DIE TRIMMER-C Nataly E Spasic Work Phone: [facility] Work Phone: Start: 06-23-2022 End: 06-23-2022 Patient encounter procedure DIE TRIMMER-C Nataly Spasic Work Phone: [facility] Work Phone: Start: 06-16-2022 End: 06-16-2022 Departed Referred DIE TRIMMER-C Nataly Spasic Work Phone: [facility] Start: 06-04-2022 End: 06-04-2022 ambulatory DIE TRIMMER-C Nataly E Spasic Work Phone: [facility] Work Phone: Start: 06-04-2022 End: 06-04-2022 Patient encounter procedure DIE TRIMMER-C Nataly Spasic Work Phone: [facility] [place] Work Phone: Start: 06-03-2022 End: 06-03-[address] SHARMILA BAIG . Facility:[facility] Start: 05-28-2022 End: 05-28-2022 ambulatory DIE TRIMMER-C Nataly Toure Work Phone: [facility] Work Phone: Start: 05-28-2022 End: 05-28-2022 Departed Referred DIE TRIMMER-C Nataly Toure Work Phone: [facility] Start: 03-15-2022 End: 03-16-2022 ambulatory CORRINA DHALIWAL Facility:[facility] Start: 10-18-2021 End: 10-18-2021 Evaluation and management of inpatient DO Obdulia Oneil Work Phone: [facility] Start: 10-16-2021 End: 10-16-2021 Departed Referred DO Obdulialeigh Oneil Work Phone: [facility] Start: 08-31-2021 End: 08-31-[address] CAMACHO HERNANDEZ . Facility:[facility] Start: 08-08-2021 End: 08-08-2021 ambulatory CORRINA DHALIWAL Facility:[facility] Start: 07-21-2021 End: 07-21-2021 Patient encounter procedure DO Obdulia Oneil Work Phone: [facility] [place] Start: 08-03-2018 End: 08-04-2018 Patient encounter procedure SHARLA HICKS Facility: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 Camacho Pintoo DO Work Phone: Start: 04-06-2024 RECURRENT VAGINITIS [...] Start: 10-07-2023 Diagnostic radiograp hy of abdomen DIE TRIMMER-C Nataly Shayleeaprilc Work Phone: Start: 10-07-2023 Ultrasonography of liver DIE TRIMMER-C Nataly Jerniganc Work Phone: Start: 10-07-2023 US scan of thyroid DIE TRIMMER-C Nataly Tejal Work Phone: Start: 09-26-2023 CT of lumbar spine w ithout contrast DIE TRIMMER-C Nataly Spasic Work Phone: Start: 09-26-2023 Urine culture DIE TRIMMER-C Andrez a Spasic Work Phone: Start: 02-13-2023 Urine culture PHYSICIAN NO FAMILY Start: 02-01-2023 Urine culture DIE TRIMMER-C Andrez a Spasic Work Phone: Start: 01-05-2023 Streptococcus agalac tiae culture DIE TRIMMER-C Nataly Spasic Work Phone: Start: 12-01-2022 Plain chest X-ray DIE TRIMMER-C Nataly Spasic Work Phone: Start: 12-01-2022 Respiratory Panel (PCR) DIE TRIMMER-C Nataly Spasic Work Phone: Start: 11-20-2022 Ultrasound scan - obstetric DIE TRIMMER-C Nataly Spasic Work Phone: Start: 06-04-2022 US scan of gallbladder DIE TRIMMER-C Nataly Spasic Work Phone: Start: 08-03-2018 Anes integ extremiti es ant trunk & perineum nos AREN PITT Start: 08-03-2018 Repair nail bed SHARLA Brian CLARK SARS Antigen (LFIA) DO Luis Enrique blanca Thad Work Phone: Streptococcus agalac tiae culture DO Obdulia Oneil Work Phone: Plan of Treatment Date Care Activity Detail Author Start: 04-13-2025 Adult BMI Screening [facility] Start: 04-13-2025 Tobacco Screening [facility] Start: 04-13-2025 End: 04-13-2025 US MFM with or without consult US MFM with or without consult Imaging Routine History of delivery, currently Expected: 04/13/2025 (Approximate), Expires: 04/13/2025 [facility] Work Phone: Comment on above: Expected: 04/13/2025 (Approximate), Expires: 04/13/2025 Start: 10-16-2024 Influenza vaccination Influenz a Vaccine (Season Ended) [facility] Start: 07-06-2024 End: 07-06-2024 Patient encounter procedure 07/06/2024 11:50 AM EDT Routine [facility] [address] [facility] [place] [id number] Camacho Hernandez, DO [address] [place] [address] [facility] Start: 06-29-2024 End: 06-29-2024 Professional / ancillary services management 06/29/2024 9:00 AM EDT Ancillary Procedure [facility] [address] [facility] [place] [address] [facility] Start: 06-15-2024 End: 06-15-2025 Measurement of glucose 3 hours after glucose challenge for glucose tolerance test Glucose tolerance, 3 hours Lab Routine Elevated glucose tolerance test Expected: 06/15/2024 (Approximate), Expires: 06/15/2025 [facility] Work Phone: Comment on above: Expected: 06/15/2024 (Approximate), Expires: 06/15/2025 Start: 06-15-2024 End: 09-15-2024 US Pelvis transvaginal US OB transvaginal Imaging Routine Elevated glucose tolerance test Expected: 06/15/2024, Expires: 09/15/2024 [facility] Comment on above: Expected: 06/15/2024 , Expires: 09/15/2024 Start: 06-15-2024 End: 06-15-2024 Patient encounter procedure [facility] Comment on above: Arrived Start: 06-08-2024 End: 06-08-2024 Professional / ancillary services management 06/08/2024 8:00 AM EDT Ancillary Procedure [facility] [address] [facility] [place] [id number] [facility] Start: 06-01-2024 End: 10-01-2024 US for US OB follow up transabdominal approach Imaging Routine Third trimester Chronic cluster headache, not intractable Diet controlled gestational diabetes mellitus (GDM) in third trimester Polyhydramnios affecting in third trimester Expected: 06/01/2024, Expires: 10/01/2024 [facility] Work Phone: Comment on above: Expected: 06/01/2024 , Expires: 10/01/2024 Start: 06-01-2024 End: 06-01-2024 Patient encounter procedure 06/01/2024 9:50 AM EDT Routine [facility] [address] [place] [address] Camacho Hernandez, DO [address] [place], [place] [id number] [facility] Start: 06-01-2024 End: 06-01-2024 Professional / ancillary services management 06/01/2024 9:00 AM EDT Ancillary Procedure [facility] [address] [place] [address] [facility] Start: 05-09-2024 End: 05-09-2024 Patient encounter procedure 05/09/2024 11:15 AM EDT Appointment [facility]ound [address] [place] [address] [facility] Start: 05-04-2024 End: 05-04-2025 CBC panel - Blood by Automated count CBC Lab Routine Diabetes mellitus screening Expected: 05/04/2024 (Approximate), Expires: 05/04/2025 [facility] Work Phone: Comment on above: Expected: 05/04/2024 (Approximate), Expires: 05/04/2025 Start: 05-04-2024 End: 05-04-2025 Measurement of glucose 1 hour after glucose challenge for glucose tolerance test Glucose tolerance, 1 hour Lab Routine Diabetes mellitus screening Expected: 05/04/2024 (Approximate), Expires: 05/04/2025 [facility] Comment on above: Expected: 05/04/2024 (Approximate), Expires: 05/04/2025 Start: 05-04-2024 End: 05-04-2025 US Pelvis transvaginal US OB transvaginal Imaging Routine Short cervix, antepartum Expected: 05/04/2024, Expires: 05/04/2025 [facility] Work Phone: Comment on above: Expected: 05/04/2024 , Expires: 05/04/2025 Start: 05-04-2024 End: 05-04-2024 Patient encounter procedure 05/04/2024 11:10 AM EDT Office Visit [facility] OB [address] [place] [address] Camacho Hernandez, [address] [facility] [place] [address] [facility] Start: 05-02-2024 End: 05-02-2024 Patient encounter procedure 05/02/2024 9:15 AM EDT Appointment [facility] [address] [place] [address] [facility] Start: 04-13-2024 End: 04-13-2024 Patient encounter procedure [facility] Start: 04-06-2024 End: 04-06-2025 US Pelvis transvaginal US OB transvaginal Imaging Routine History of delivery, currently Expected: 04/06/2024, Expires: 04/06/2025 [facility] Comment on above: Expected: 04/06/2024 , Expires: 04/06/2025 Start: 04-06-2024 End: 04-06-2024 Patient encounter procedure [facility] Comment on above: Arrived Start: 03-09-2024 End: 05-07-2024 Alpha fetoprotein, maternal Alpha fetoprotein, maternal Lab Routine Second trimester 16 weeks gestation of Expected: 03/09/2024 (Approximate), Expires: 05/07/2024 [facility] Work Phone: Comment on above: Expected: 03/09/2024 (Approximate), Expires: 05/07/2024 Start: 03-09-2024 End: 03-09-2025 Measurement of glucose 1 hour after glucose challenge for glucose tolerance test Glucose tolerance, 1 hour Lab Routine History of delivery, currently History of gestational diabetes Expected: 03/09/2024 (Approximate), Expires: 03/09/2025 [facility] Comment on above: Expected: 03/09/2024 (Approximate), Expires: 03/09/2025 Start: 03-09-2024 End: 03-09-2025 US Pelvis transvaginal US OB transvaginal Imaging Routine History of delivery, currently Expected: 03/09/2024, Expires: 03/09/2025 [facility] Comment on above: Expected: 03/09/2024 , Expires: 03/09/2025 Start: 03-09-2024 End: 03-09-2024 Patient encounter procedure [facility] Comment on above: Arrived Start: 02-03-2024 End: 02-02-2025 ABO/Rh ABO/Rh Lab Routine Missed menses , unspecified gestational age Expected: 02/03/2024 (Approximate), Expires: 02/02/2025 [facility] Comment on above: Expected: 02/03/2024 (Approximate), Expires: 02/02/2025 Start: 02-03-2024 End: 02-02-2025 Blood type and Indirect antibody screen panel - Blood Type and screen Lab Routine Missed menses , unspecified gestational age Expected: 02/03/2024 (Approximate), Expires: 02/02/2025 [facility] Work Phone: Comment on above: Expected: 02/03/2024 (Approximate), Expires: 02/02/2025 Start: 02-03-2024 End: 02-02-2025 Drugs of abuse panel - Urine by Screen method Rapid drug screen, urine Lab Routine , unspecified gestational age Encounter for supervision of normal first in first trimester Expected: 02/03/2024 (Approximate), Expires: 02/02/2025 [facility] Comment on above: Expected: 02/03/2024 (Approximate), Expires: 02/02/2025 Start: 02-03-2024 End: 02-02-2025 US Pelvis transvaginal US OB transvaginal Imaging Routine Missed menses Expected: 02/03/2024 (Approximate), Expires: 02/02/2025 [facility] Comment on above: Expected: 02/03/2024 (Approximate), Expires: 02/02/2025 Start: 10-17-2023 Influenza vaccination [facility] Start: 09-26-2023 CT Lumbar spine WO contrast [facility] Start: 09-26-2023 CT of lumbar spine w ithout contrast CT lumbar spine wo con [facility] Start: 09-26-2023 Bacteria identified in Urine by Culture [facility] Start: 08-20-2023 [facility] Start: 02-14-2023 [facility] Start: 02-13-2023 End: 02-13-2023 [facility] Start: 02-13-2023 Bacteria identified in Urine by Culture [facility] Start: 02-13-2023 Delivery of Products of Conception, External Approach Delivery of Products of Conception, External Approach [facility] Start: 02-13-2023 Drainage of Amniotic Fluid, Therapeutic from Products of Conception, Via Natural or Artificial Opening Drainage of Amniotic Fluid, Therapeutic from Products of Conception, Via Natural or Artificial Opening [facility] Start: 02-13-2023 Hospital admission [facility] Start: 02-13-2023 [facility] admission [facility] Start: 02-13-2023 End: 02-13-2023 [facility] Start: 02-01-2023 [facility] Start: 02-01-2023 Hospital admission [facility] Start: 02-01-2023 Bacteria identified in Urine by Culture [facility] Start: 01-31-2023 [facility] Start: 01-30-2023 Hospital admission [facility] Start: 01-22-2023 [facility] Start: 01-21-2023 [facility] Start: 01-05-2023 Group B Streptococcu s Culture Group B Streptococcus Culture [facility] Start: 12-01-2022 Respiratory Panel (PCR) Respiratory Panel (PCR) [facility] Start: 11-21-2022 [facility] Start: 11-20-2022 [facility] Start: 11-20-2022 Hospital admission [facility] Start: 11-19-2022 [facility] Start: 11-19-2022 Hospital admission [facility] Start: 11-19-2022 [facility] Start: 10-18-2021 End: 10-18-2021 [facility] Work Phone: Start: 10-18-2021 Hospital admission [facility] Work Phone: Start: 2020 Screening for malign ant neoplasm of cervix Pap Smear [facility] Start: 02-16-2020 DTaP,Tdap and Td Vac cines (2 - Td or Tdap) DTaP,Tdap and Td Vaccines (2 - Td or Tdap) [facility] Start: 2017 Adult BMI Follow Up Plan Adult BMI Follow Up Plan [facility] Start: 2017 Adult BMI Screening Adult BMI Screen ing [facility] Start: 2011 Depression Screening Depression Scre ening [facility] Start: 2011 Tobacco Screening Tobacco Screening [facility] Bacteria identified in Urine by Culture [facility] Bacteria identified in Urine by Culture Urine culture Microbiology Routine Missed menses Ordered: 02/03/2024 [facility] Comment on above: Ordered: 02/03/2024 CBC W Auto Different ial panel - Blood CBC and differential Lab Routine Missed menses , unspecified gestational age Ordered: 02/03/2024 [facility] Comment on above: Ordered: 02/03/2024 CHLAMYDIA TRACHOMATI S (GENITO/STI) CHLAMYDIA TRACHOMATIS (GENITO/STI) Lab Routine STD exposure Vaginal discharge Ordered: 04/06/2024 [facility] Comment on above: Ordered: 04/06/2024 Cytology Cervical or vaginal smear or scraping study Pap Smear Pathology and Cytology Routine Well woman exam with routine gynecological exam Ordered: 04/06/2024 [facility] Comment on above: Ordered: 04/06/2024 Glucose measurement estimated from glycated hemoglobin [facility] Hemoglobin A1c/Hemoglobin.total in Blood [facility] Hemoglobin A1c/Hemoglobin.total in Blood Hemoglobin A1c Lab Routine Missed menses , unspecified gestational age Ordered: 02/03/2024 [facility] Comment on above: Ordered: 02/03/2024 Hepatitis B virus almeida rface Ag [Presence] in Serum or Plasma by Immunoassay Hepatitis B surface antigen Lab Routine Missed menses , unspecified gestational age Ordered: 02/03/2024 [facility] Comment on above: Ordered: 02/03/2024 Hepatitis C virus Ab [Presence] in Serum or Plasma by Immunoassay Hepatitis C antibody Lab Routine Missed menses , unspecified gestational age Ordered: 02/03/2024 [facility] Comment on above: Ordered: 02/03/2024 HIV-1/HIV-2 antigen/antibody combination immunoassay HIV-1 and HIV-2 antibodies Lab Routine Missed menses , unspecified gestational age Ordered: 02/03/2024 [facility] Comment on above: Ordered: 02/03/2024 Insulin [Units/volum e] in Serum or Plasma [facility] Insulin [Units/volum e] in Serum or Plasma [facility] Insulin [Units/volum e] in Serum or Plasma [facility] Neisseria gonorrhoea e DNA [Presence] in Unspecified specimen by SVETLANA with probe detection Neisseria gonorrhea DNA probe, direct Lab Routine STD exposure Vaginal discharge Ordered: 04/06/2024 [facility] Comment on above: Ordered: 04/06/2024 Patient Education [facility] Work Phone: Patient referral [facility] Work Phone: Reagin Ab [Presence] in Serum by RPR [facility] Work Phone: Reagin Ab [Presence] in Serum by RPR [facility] Reagin Ab [Presence] in Serum by RPR RPR Lab Routine Missed menses , unspecified gestational age Ordered: 02/03/2024 [facility] Comment on above: Ordered: 02/03/2024 Respiratory pathogen s DNA and RNA panel - Nasopharynx by SVETLANA with non-probe detection [facility] Rubella antibody, IgG Rubella an tibody, IgG Lab Routine Missed menses , unspecified gestational age Ordered: 02/03/2024 [facility] Comment on above: Ordered: 02/03/2024 Streptococcus agalac tiae [Presence] in Unspecified specimen by Organism specific culture [facility] Streptococcus pyogen es DNA [Identifier] in Unspecified specimen by SVETLANA with probe detection STREP DNA PROBE Point of Care Testing Routine Pharyngitis, unspecified etiology 05/29/2024 12:45 PM EDT [facility] Work Phone: SURESWAB(R) ADVANCED VAGINITIS PLUS, TMA SURESWAB(R) ADVANCED VAGINITIS PLUS, TMA Pathology and Cytology Routine STD exposure Vaginal discharge Ordered: 04/06/2024 [facility] Work Phone: Comment on above: Ordered: 04/06/2024 Thyroperoxidase Ab [Units/volume] in Serum or Plasma [facility] Thyrotropin [Units/v olume] in Serum or Plasma [facility] Thyrotropin [Units/v olume] in Serum or Plasma TSH Lab Routine , unspecified gestational age Encounter for supervision of normal first in first trimester Ordered: 02/03/2024 [facility] Comment on above: Ordered: 02/03/2024 Thyroxine (T4) free index in Serum or Plasma by calculation [facility] Thyroxine measurement [facility] Triiodothyronine (T3 ) [Mass/volume] in Serum or Plasma [facility] Triiodothyronine res in uptake (T3RU) in Serum or Plasma [facility] Immunizations Immunization Date Immunization Notes Care Provider Arcadio galicia 04-09-2023 influenza virus vaccine, unspecified formulation [facility] Nurse [facility] 02-13-2023 tetanus toxoid, reduced diphtheria toxoid, and acellular pertussis vaccine, adsorbed DIE TRIMMER-Anirudh Toure Work Phone: [facility] 01-10-2021 influenza, injectable, quadrivalent, preservative free DO Obdulia Oneil Work Phone: [facility] 02-15-2010 tetanus toxoid, reduced diphtheria toxoid, and acellular pertussis vaccine, adsorbed [facility] Nurse [facility] Work Phone: 12-13-2008 novel [id number], preservative-free, injectable [facility] Nurse [facility] 12-13-2008 influenza virus vaccine, unspecified formulation Ni Carroll MD Work Phone: [facility] 07-21-2000 hepatitis B vaccine, pediatric or pediatric/adolescent dosage [facility] 07-21-2000 measles, mumps and rubella virus vaccine [facility] 1999 poliovirus vaccine, inactivated [facility] NEGATED: Highlighted row has not occurred!01-10-2021 tetanus toxoid, reduced diphtheria toxoid, and acellular pertussis vaccine, adsorbed DO Obdulia Oneil Work Phone: [facility] Payers Date Payer Category Payer Self-pay [id number] 2021 Medicaid (Managed Care) [employer] [id number] 1999 Unknown [id number] 2.16.840.1.593350.3.579.2. 647 1999 Unknown [id number] 2.16.840.1.030871.3.579.2. 593 1999 Unknown [id number] 2.16.840.1.933309.3.579.2. 593 1999 Unknown [id number] 2.16.840.1.654162.3.579.2. 593 1999 Unknown [id number] 2.16.840.1.097420.3.579.2. 593 1999 Unknown [id number] 2.16.840.1.843473.3.579.2. 593 1999 Unknown [id number] 2.16.840.1.472340.3.579.2. 1286 1999 Unknown [id number] 2.16.840.1.794182.3.579.2. 1286 1999 Unknown [id number] 2.16.840.1.717463.3.579.2. 1286 1999 Unknown [id number] 2.16.840.1.462626.3.579.2. 9 1999 Unknown [id number] 2.16.840.1.915344.3.579.2. 9 1999 Unknown [id number] 2.16.840.1.337240.3.579.2. 9 1999 Unknown [id number] 2.16.840.1.161190.3.579.2. 9 1999 Unknown [id number] 2.16.840.1.964513.3.579.2. 9 1999 Unknown [id number] 2.16.840.1.096031.3.579.2. 9 1999 Unknown [id number] 2.16.840.1.125835.3.579.2. 9 1999 Unknown [id number] 2.16.840.1.363285.3.579.2. 1258 1999 Unknown [id number] 2.16.840.1.923512.3.579.2. 9 1994 Medicaid HMO [id number]. [id number] 1959 Private Health Insurance [id number] Unknown [id number] Unknown [employer]/BS [id number] Unknown [id number] 2.16.840.1.872903.3.579.2. 531 Unknown [id number] 2.16.840.1.874012.3.579.2. 531 Unknown [id number] 2.16.840.1.567930.3.579.2. 531 Unknown [id number] 2.16.840.1.684413.3.579.2. 531 Unknown [id number] 2.16.840.1.680134.3.579.2. 531 Unknown [id number] 2.16.840.1.423868.3.579.2. 531 Unknown [id number] 2.16.840.1.760859.3.579.2. 531 Unknown [id number] 2.16.840.1.965007.3.579.2. 531 Unknown [id number] 2.16.840.1.169881.3.579.2. 531 Unknown [id number] 2.16840.1.791899.3.579.2. 531 Unknown [id number] 2.16.840.1.761025.3.579.2. 531 Unknown [id number] 2.16.840.1.846010.3.579.2. 531 Unknown [id number] 2.16.840.1.977314.3.579.2. 531 Unknown [id number] 2.16.840.1.288721.3.579.2. 531 Unknown [id number] 2.16.840.1.689739.3.579.2. 531 Unknown [id number] 2.16.840.1.704858.3.579.2. 531 Unknown [id number] 2.16840.1.284687.3.579.2. 531 Social History Date Type Detail Facility Start: 10-18-2021 End: 07-28-2022 Tobacco smoking status VTIS Never smoked tobacco (finding) [facility] Start: 2000 Sex Assigned At Female [facility] Start: 07-28-2022 End: 03-17-2024 Tobacco use and exposure Smokeless tobacco non-user [facility] Start: 02-03-2024 End: 06-15-2024 Alcoholic beverage intake Ex-drinker (finding) [facility] Start: 02-12-2023 End: 02-03-2024 History of Social function [facility] Start: 02-12-2023 End: 02-03-2024 Tobacco use panel [facility] Start: 08-24-2022 Education [facility] Start: 08-24-2022 Alcohol Comment none with preg sascha, Caffeine intake: none [facility] Start: [facility]01-2023 [facility]: [facility] Sex assigned at Not on file [facility] Start: 04-29-2022 Gender identity Identifies as female gender (finding) [facility] Unknown [facility] Start: 09-20-2014 Sex Female (finding) [facility] NEGATED: Highlighted row [facility] Medical Equipment Procedure Code Equipment Code Equipment Origin al Text Equipment Identifier Dates 1 strip by In Vi tro route Daily Use in the morning prior to breakfast, 1 hour after each meal for a total of 4times daily. [id number] Start: 05-29-2024 End: 06-28-2024 1 each by In Vit ro route Daily Use to check FSBS four times daily [id number] Start: 05-29-2024 End: 06-28-2024 Goals Date Patient Goal Desired Activity /State Personal health goal Functional Status Date Assessment Result Facility 02-13-2023 Functional status Patient Not at Baseline [facility] Work Phone: Mental Status Date Assessment Result Facility 02-13-2023 Cognitive function Cognitive Sta tus Patient Not at Baseline [facility] Work Phone: Clinical Notes 10-18-2021 to 06-15-2024 Riya Alexander NP - 06/15/2024 1:50 PM Eric Curry LPN - 06/01/2024 9:50 AM Wilbert Cool NP - 05/29/2024 12:30 PM LAMTRiya Alexander NP - 05/04/2024 11:10 AM EDT Note Date & Type Note Facility 06-15-2024 History of Present illness Narrative Reason for Appointment: Patient ID: Rosette Alba is a 24 y.o. female who presents for Routine Visit Patient presents today for Return OB appointment. MEDICATIONS Current Outpatient Medications Medication Instructions acetaminophen-codeine (Tylenol w/ Codeine #3) 300-30 MG tablet 1 tablet, Oral, Every 6 hours PRN Blood Glucose Monitoring Suppl (Aqua[employer]-Blue Photo Stories Glucometer) w/Device kit 1 kit, Does not apply, Daily, Use four times daily to check FSBS. In the morning prior to breakfast & 1 hour after each meal for a total of 4times daily. promethazine (PHENERGAN) 12.5 mg, Oral, Every 6 hours PRN, Take 1 tablet by mouth every 6 hours as needed for nausea. ALLERGIES No Known Allergies PROBLEMS Active Ambulatory [...] nursing note reviewed. Exam conducted with a preassembler and inspector present. Vitals: Estimated body mass index is 42.3 kg/m as calculated from the following: Height as of 07/28/22: 5' 3 . Weight as of this encounter: 238 lb 12.8 oz. BP: 118/70 Patient's last menstrual period was 11/21/2023. ASSESSMENT & PLAN ICD-10-CM 1. 30 weeks gestation of Z3A.30 POCT urinalysis dipstick manually resulted 2. Third trimester Z34.93 POCT urinalysis dipstick manually resulted Return OB: Patient presents today for a routine obstetrics appointment. Patient is currently 30w1d . Patient states she is doing well but has complaints of being tired due to current . Patient has verbalizes frequent movement. labor precautions was discussed/given and patient was instructed to perform kick counts three times a day. Orders Placed This Encounter Procedures US OB transvaginal Glucose tolerance, 3 hours POCT urinalysis dipstick manually resulted Follow Up: Patient is to return to office in 2 week for routine OB appointment. 1 hour glucose 199 was discussed today and 3 hour glucose was given. Patient will be given Celestone at 32 weeks and NST / BPP to begin at 32 weeks. Documented by Riya Alexander NP on behalf of: Riya Alexander NP documented in this encounter [facility] 06-01-2024 History of Present illness Narrative Reason for Appointment: Patient ID: Rosette Alba is a 24 y.o. female who presents for Routine Visit Patient presents today for Return OB appointment. MEDICATIONS Current Outpatient Medications Medication Instructions amoxicillin (AMOXIL) 875 mg, Oral, 2 times daily, Pt to inform OB of starting medication. Blood Glucose Monitoring Suppl (D-Blue Photo Stories Glucometer) w/Device kit 1 kit, Does not apply, Daily, Use four times daily to check FSBS. In the morning prior to breakfast & 1 hour after each meal for a total of 4times daily. ALLERGIES No Known Allergies PROBLEMS Active Ambulatory [...] Genitourinary: Negative. Musculoskeletal: Negative. Skin: Negative. Neurological: Positive for headaches. All other systems reviewed and are negative. [...] nursing note reviewed. Exam conducted with a preassembler and inspector present. Vitals: Estimated body mass index is 41.72 kg/m as calculated from the following: Height as of 07/28/22: 5' 3 . Weight as of this encounter: 235 lb 8 oz. BP: 110/66 Patient's last menstrual period was 11/21/2023. ASSESSMENT & PLAN ICD-10-CM 1. Third trimester Z34.93 POCT urinalysis dipstick manually resulted 2. 28 weeks gestation of Z3A.28 Patient presents today for a routine obstetrics appointment. Patient is currently 28w1d with a Estimated Date of Delivery: 08/23/24. Patient is setup with [facility] for Diabetic Education. Patient complaints of URI and z-valencia sent to pharmacy. Patient also stated she has been having headaches that are not helped with Tylenol. Will write prescription for patient to have #20 Tylenol #3. Patient also given Phenergan to assist with headaches. Patient to return to clinic for routine OB care. Documented by Ce Curry LPN on behalf of: Camacho Hernandez DO documented in this encounter [facility] 05-29-2024 History of Present illness Narrative Images from the original note were not included. [address] , [address] [facility], [address] P: [phone] F: [phone] HPI Historian of HPI: patient Rosette Alba is a 24 y.o. female who presents today to the Urgent Care with the following complaints and denials which have been present for 3 day(s) C/O Denies Symptom Comments [] [x] Runny Nose [] [x] Difficulty Swallowing [x] [] Sore Throat [x] [] Cough [] [x] Ear Pain [] [x] Fever [] [x] Chills [] [x] Nasal Congestion [] [x] Myalgia [] [x] Sinus Pain [] [x] Sinus Pressure Additional Comments: Pt is 27 weeks . Pt's son is also sick with similar symptoms. Pt c/o a red patch on her tongue x2 days. Pt states the area is not painful and unsure if related to sick symptoms. Pt wanting a strep test at this time. ROS A complete system ROS was performed and negative aside from the pertinent positives noted in the HPI and PE. PHYSICAL EXAM Examination General Examination: General Examination: in no acute distress, well developed, well nourished Head: normocephalic, atraumatic Eyes: no discharge Ears: BOTH EARS canals normal. TM with mild erythema bilat. Nose: nares patent, sinuses nontender bilaterally Oral Cavity: mucosa moist Throat: pharynx with erythema and PND. No trismus, muffled voice, drooling or protrusion of soft palate. Uvula midline tonsils 1+ with erythema, no exudate bilat Neck/Thyroid: neck supple, trachea midline Lymph Nodes: bilat AKOSUA mobile and tender Skin: warm and dry Heart: S1, S2 normal, regular rate and rhythm, no S3, S4, no murmurs, rubs, gallops Lungs: clear anteriorly and posteriorly, clear to auscultation bilaterally, good air movement, no wheezes, rales, rhonchi Chest: normal shape and expansion, normal anteroposterior (AP) diameter Psych: alert, oriented. TREATMENT PLAN 1. Strep throat (Primary) rapid strep pos, discussed 24 hours atb needed to prevent spread to others. Start atb as directed-see rx, discussed SE of atb, must inform OB of atb use due to concurrent . Push fluids. Immediate eval if new, worsening or warning s/s otherwise follow up with PCP over next 7-10 days for recheck, sooner if not improving over next 72 hours. - amoxicillin (Amoxil) 875 MG tablet; Take 1 tablet (875 mg) by mouth in the morning and 1 tablet (875 mg) before bedtime. Do all this for 10 days. Pt to inform OB of starting medication. Dispense: 20 tablet; Refill: 0 2. Pharyngitis, unspecified etiology See 1 - STREP DNA PROBE - amoxicillin (Amoxil) 875 MG tablet; Take 1 tablet (875 mg) by mouth in the morning and 1 tablet (875 mg) before bedtime. Do all this for 10 days. Pt to inform OB of starting medication. Dispense: 20 tablet; Refill: 0 3. 27 weeks gestation of See 1 documented in this encounter [facility] 05-04-2024 History of Present illness Narrative Reason for Appointment: Patient ID: Rosette Alba is a 24 y.o. female who presents for Routine Visit Patient presents today for Return OB appointment. MEDICATIONS Current Outpatient Medications Medication Instructions ferrous sulfate 325 mg, Daily with breakfast magnesium oxide (MAG-OX) 400 mg, Oral, Daily ALLERGIES No Known Allergies PROBLEMS Active Ambulatory [...] nursing note reviewed. Exam conducted with a preassembler and inspector present. Vitals: Estimated body mass index is 40.59 kg/m as calculated from the following: Height as of 07/28/22: 5' 3 . Weight as of this encounter: 229 lb 1.9 oz. BP: 126/70 Patient's last menstrual period was 11/21/2023. ASSESSMENT & PLAN ICD-10-CM 1. 24 weeks gestation of Z3A.24 POCT urinalysis dipstick manually resulted 2. Second trimester Z34.92 POCT urinalysis dipstick manually resulted 3. Diabetes mellitus screening Z13.1 CBC Glucose tolerance, 1 hour CBC Glucose tolerance, 1 hour 4. Nonintractable headache, unspecified chronicity pattern, unspecified headache type R51.9 magnesium oxide (Mag-Ox) 400 MG tablet Return OB: Patient presents today for a routine obstetrics appointment. Patient is currently 24w1d . Patient states she is doing well but has complaints of being tired due to current . Patient has verbalizes frequent movement. labor precautions was discussed/given and patient was instructed to perform kick counts three times a day. Will obtain cervical length ultrasound every 4 weeks. Continue progesterone Orders Placed This Encounter Procedures US OB transvaginal CBC Glucose tolerance, 1 hour POCT urinalysis dipstick manually resulted Follow Up: Patient is to return to office in 4 week for routine OB appointment. Documented by Riya Alexander NP on behalf of: Camacho Hernandez DO documented in this encounter [facility] 04-13-2024 History of Present illness Narrative Headache/epigastric [...] Yes Have you been seen here at [facility] in a previous ? No Recent ER visits or hospitalizations? No Bring blood sugar log or meter with you today? (Please bring them with you for every visit at [facility]) N/A Flu vaccine (Dec-April)? Yes Any concerns that you would like me to mention to the provider today? No REASON FOR CONSULTATION: Previa ruled out. HISTORY OF PRESENT ILLNESS: Rosette Alba is a pleasant 24 y.o. G 1w4045. at 20w4d due on Estimated Date of [...] and the other consultants, we search on [employer] and all the available care everywhere epic I did review all the imaging studies of the patient available on EMR, ordered by the primary care physician and the other consultant education HABITS: Patient activity no restrictions, diet no [...] 22 weeks and 23 weeks gestation at [facility] office. 2. InCase of short cervical length less than 25 mm patient will be a candidate for cerclage which will be performed through the [facility] office. 3. Placenta previa has resolved. 4. Routine care OB provider. DISPOSITION: At this point the patient is in complete care of her cloth picker. Patient does have ultrasound scheduled with us Thank you for allowing me to participate in Rosette Alba . If there any questions please do not hesitate to contact us. Sincerely, NI CARROLL MD [facility] History of Present illness Narrative Reason [...] nursing note reviewed. Exam conducted with a preassembler and inspector present. Vitals: Estimated body mass index is [...] of: YNES Xiong documented in this encounter [facility] 03-09-2024 History of Present illness Narrative Reason [...] nursing note reviewed. Exam conducted with a preassembler and inspector present. Vitals: Estimated body mass index is [...] or undercooked meat, and stay away from [facility]. Patient has been consulted regarding any further do's and don'ts of . Patient voiced understanding and all questions and concerns were answered. Discussed vaginal progesterone with patient and that medication will be stopped at 36 weeks gestation, and Celestone will be given at 32 weeks. Patient given early 1 hour gtt and MSAFP. Vaginal suppositories sent to [employer]. PVU Orders Placed This Encounter Procedures US OB transvaginal Alpha fetoprotein, maternal Glucose tolerance, 1 hour POCT urinalysis dipstick manually resulted Follow Up: Patient is to return in 4 weeks for routine OB appointment. Documented by Ce Curry LPN on behalf of: Camacho Hernandez DO documented in this encounter [facility] 02-03-2024 History of Present illness Narrative [...] or undercooked meat, and stay away from [facility]. Patient has also been advised to not [...] Danay Velasquez MA documented in this encounter [facility] 02-13-2023 Procedure note [facility] 10-18-2021 History and physical note Note Date/Time October 18, 2021 1:40am [facility] [address] [place] [address] TESTING PROJECTS ADMINISTRATOR History & Physical Signed Patient: Rosette Alba MR#: [id number] : 2000 Acct:[id number] Age/Sex: 21 / F Adm Date: 2 Loc: Room: 8N1480-1 Type: ADM IN Attending Dr: Jennie Smith MD Copies to: Jennie Smith MD-NOMS Obdulia Oneil DO~ Date of Service: 10/18/2021 Review of Systems Review of Systems All other systems reviewed & are negative unless noted below or in HPI OB [facility] Medical History (Updated 10/18/21 @ 01:30 by Jennie Smith MD) Anxiety Depression Thyroid disease No meds at present time. UTI (urinary tract infection) Surgical History (Updated 01/08/21 @ 21:48 by Marie Wynn RN) History of placement of ear tubes TESTING PROJECTS ADMINISTRATOR Hx : 5 : 4 Livin EDC [...] % (Auto) 73.3, Lymph % (Auto) 17.0, Dale % (Auto) 8.1, Eos % (Auto) 1.3, Baso % (Auto) 0.3, Neut # (Auto) 7.4, Lymph # (Auto) 1.7, Dale # (Auto) 0.8, Eos # (Auto) 0.1, Baso # (Auto) 0.0, Nucleated RBC % (auto) 0.1 10/18/21 00:27: Urine Color Yellow, Urine Appearance Cloudy A, Urine pH 6.5, Ur Specific Dairy 1.020, Urine Protein Trace H, Urine Glucose [...] <Electronically signed by TELMA Smith> 10/18/21 0141 [facility] Work Phone: [phone]) 120-630809-03-2022 [facility] Diagnosis Onset Date Resolution Status 33 weeks gestation of acute [facility] Work Phone: evPreactation noteNo assessment information available [facility] Work Phone: evaluation note* Diagnosis Onset Date Resolution Status 35 weeks gestation of acute [facility] Work Phone: appEatITation note* Diagnosis Onset Date Resolution Status Iron deficiency anemia [facility] Work Phone: evaluation note* Diagnosis Missed menses , unspecified gestational age Encounter for supervision of normal first in first trimester documented in this encounter [facility] Healthcare[facility]* Diagnosis Second trimester state, incidental 16 weeks gestation of History of delivery, currently with history of pre-term labor Diabetes mellitus screening Screening for diabetes mellitus History of gestational diabetes Personal history of other genital system and obstetric disorders documented in this encounter [facility] HealthcareEvaluation note* Diagnosis Second trimester - Primary state, incidental 20 weeks gestation of STD exposure Well woman exam with routine gynecological exam Routine gynecological examination Vaginal discharge Leukorrhea, not specified as infective History of delivery, currently with history of pre-term labor URI, acute Acute upper respiratory infections of unspecified site documented in this encounter [facility] HealthcareEvaluation note* Diagnosis History of delivery, currently - Primary with history of pre-term labor [facility] Diagnosis delivery after section- Primary documented in this encounter [facility] SystemEvaluation note* Diagnosis Short cervix, antepartum- Primary 24 weeks gestation of Second trimester state, incidental Diabetes mellitus screening Screening for diabetes mellitus Nonintractable headache, unspecified chronicity pattern, unspecified headache type documented in this encounter [facility] HealthcareEvaluation note* Diagnosis Strep throat- Primary Streptococcal sore throat Pharyngitis, unspecified etiology 27 weeks gestation of documented in this encounter [facility] HealthcareEvaluation note* Diagnosis Third trimester state, incidental 28 weeks gestation of Upper respiratory tract infection, unspecified type Chronic cluster headache, not intractable History of delivery, currently with history of pre-term labor Diet controlled gestational diabetes mellitus (GDM) in third trimester Polyhydramnios affecting in third trimester documented in this encounter [facility] HealthcareEvaluation note* Diagnosis Elevated glucose tolerance test- Primary Impaired glucose tolerance test 30 weeks gestation of Third trimester state, incidental documented in this encounter [facility] HealthcareHospital Discharge instructions Additional Instructions You have a respiratory panel is pending you will be called with any positive results Push fluids Humidifier may be beneficial Tylenol only for your discomfort Follow-up with your PCP and your TESTING PROJECTS ADMINISTRATOR call tomorrow for appointment Salt water gargles to soothe your throat Handwashing Rest Return here if any problems persist or worsen including abdominal pain, vaginal bleeding, increased pain, dyspnea or any other [facility] Work Phone: InstructionsNot on filedocumented in this encounter [facility] SystemInstructionsNot on filedocumented in this encounter [facility] SystemInstructionsNot on filedocumented in this encounter [facility] System Summary Purpose Family History No Family [...] and content) DATE CREATED AUTHOR 10/16/2018 [facility] DATE CREATED AUTHOR AUTHOR'S ORGANIZ ATION 07/24/2022 [facility] DATE CREATED AUTHOR AUTHOR'S ORGANIZ ATION 12/17/2023 [facility] DATE CREATED AUTHOR AUTHOR'S ORGANIZ ATION 05/03/2024 [facility] DATE CREATED AUTHOR AUTHOR'S ORGANIZ ATION 05/05/2024 [facility] DATE CREATED AUTHOR AUTHOR'S ORGANIZ ATION 06/20/2024 [facility] EPIC Care Teams (unrecognized sec tion and content) [...] Member Role Status Dates Nataly Toure , DIE TRIMMER-C Attending Provider Active Team Status: Active Member Role Status Dates Nataly Toure , DIE TRIMMER-C Primary Care Provider Active Team Status: Inactive Member Role Status Dates Nataly Toure , DIE TRIMMER-C Primary Care Provider, Attending Provider Active Team Status: Inactive Member Role Status Dates Nataly Toure , DIE TRIMMER-C Primary Care Provider Active Marcello Hudson DO Attending Provider Active Team Status: Inactive Member Role Status Dates Nataly Toure , DIE TRIMMER-C Primary Care Provider Active Mary Kay Cantu DO Attending Provider Active Team Status: Inactive Member Role Status Dates Nataly Toure , DIE TRIMMER-C Primary Care Provider Active Jennie Smith MD Attending Provider Active Team Status: Inactive Member Role Status Dates Nataly Toure , DIE TRIMMER-C Primary Care Provider Active Staci Ortiz APRN Emergency Provider Active Team Status: Inactive Member Role Status Dates Nataly Toure , DIE TRIMMER-C Attending Provider Active Services [facility] Primary Care Provider Ac tive Team Status: Inactive Member Role Status Dates Radha Molina DO Attending Provider Active Team Status: Active Member Role Status Dates PHYSICIAN NO FAMILY Primary Care Provider Active Team Status: Inactive Member Role Status Dates Radha Molina DO Attending Provider Active PHYSICIAN NO FAMILY Primary Care Provider Active Team Status: Inactive Member Role Status Dates Nataly Toure , DIE TRIMMER-C Primary Care Provider Active Radha Molina DO Attending Provider Active Team Status: Inactive Member Role Status Dates Naatly Toure , DIE TRIMMER-C Primary Care Provider Active Ede Way MD [...] Role Status Dates Nataly Brian Toure , DIE TRIMMER-C Primary Care Provider Active Start: January 21, 2023 End: January 21, 2023 Radha Molina DO Attending Provider Active S tart: January 21, 2023 End: January 21, 2023 Team Status: Inactive Member Role Status Dates Nataly Brian Toure , DIE TRIMMER-C Primary Care Provider Active Start: January 22, 2023 End: January 22, 2023 Radha Molina DO Attending Provider Active S tart: January 22, 2023 End: January 22, 2023 Team Status: Inactive Member Role Status Dates Nataly Brian Toure , DIE TRIMMER-C Primary Care Provider Active Start: January 30, 2023 End: January 31, 2023 Mary Kay Cantu DO Attending Provider Active Start: January 30, 2023 End: January 31, 2023 Team Status: Inactive Member Role Status Dates Nataly Brian Toure , DIE TRIMMER-C Primary Care Provider Active Start: February 01, 2023 End: February 01, 2023 Radha Molina DO Attending Provider Active S tart: February 01, 2023 End: February 01, 2023 Team Status: Inactive Member Role Status Dates Nataly Brian Toure , DIE TRIMMER-C Primary Care Provider Active Start: February 13, 2023 End: February 13, [address] MD Admit Provider, Atte nding Provider Active Start: February 13, 2023 End: February 13, 2023 Team Status: Inactive Member Role Status Dates Nataly Toure , DIE TRIMMER-C Attending Provider Active Start: March 04, 2023 End: March 04, 2023 Team Status: Active Member Role Status Dates Services [facility] Primary Care Provider Ac tive Team Status: Inactive Member Role Status Dates Nataly Toure , DIE TRIMMER-C Attending Provider Active Start: March 17, 2023 End: March 17, 2023 Counts Include [facility] At [facility] Care Provider Ac tive Start: March 17, 2023 End: March 17, 2023 Team Status: Inactive Member Role Status Dates Nataly Toure , DIE TRIMMER-C Attending Provider Active Start: August 03, 2023 End: August 03, 2023 Team Status: Inactive Member Role Status Dates Nataly Toure , DIE TRIMMER-C Primary Care Provider Active Start: August 20, 2023 End: August 21, 2023 Carmelo Vinson DO Emergency Provider Active St art: August 20, 2023 End: August 21, 2023 Team Status: Inactive Member Role Status Dates Nataly Toure , DIE TRIMMER-C Primary Care Provider Active Start: September 26, 2023 End: September 27, 2023 Devon Leon PA-C Emergency Provider Active Start: September 26, 2023 End: September 27, 2023 Team Status: Inactive Member Role Status Dates Nataly Toure DIE TRIMMER-C Primary Care Provi emmanuel, Attending Provider Active Start: September 30, 2023 End: September 30, 2023 Team Status: Inactive Member Role Status Dates Nataly Toure , DIE TRIMMER-C Primary Care Provider Active Start: October 04, 2023 End: October 05, 2023 Carmelo Vinson DO Emergency Provider Active St art: October 04, 2023 End: October 05, 2023 Team Status: Inactive Member Role Status Dates Nataly Toure , DIE TRIMMER-C Primary Care Provi emmanuel, Attending Provider Active Start: October 07, 2023 End: October 07, 2023 Team Status: Inactive Member Role Status Dates Nataly Toure , DIE TRIMMER-C Primary Care Provi emmanuel, Referring Provider Active Start: October 20, 2023 End: October 20, 2023 Melania Arceo APRN Attending Provider Active Start: October End: October 20, 2023 Team Status: Active Member Role Status Dates Nataly Toure , DIE TRIMMER-C Primary Care Provi emmanuel, Referring Provider Active Start: October 20, 2023 Melania Arceo APRN Attending Provider Active Start: October 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 Start Date End Date Unallocated, [place] [id number] PCP - General 06/29/22 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 Start Date End Date Unallocated, [place] [address] PCP - General 06/29/22 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 Start Date End Date Unallocated, MD Jose Angel Costa [facility] [place] [address] PCP - General 06/29/22 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 Start Date End Date Unallocated, Jonny [facility] [place] [address] PCP - General 06/29/22 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 Start Date End Date Tai Chapman MD [address] [place] [id number] PCP - General Family Medicine 02/24/18 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 Start Date End Date Unallocated, MD Jose Angel Costa [facility] [place] [address] PCP - General 06/29/22 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 Start Date End Date Unallocated, Jonny Chapa MD [facility] YOBANI ANDRADE [facility] [place] [address] PCP - General 06/29/22 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 Start Date End Date Unallocated, Jonny Chapa MD [address] [place] [id number] PCP - General 06/29/22 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 Start Date End Date Tai Chapman MD [address] [place] [id number] PCP - General Family Medicine 02/24/18 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 Start Date End Date Tai Chapman MD [address] [place] [id number] PCP - General Family Medicine 02/24/18 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 Start Date End Date Unallocated, Jonny Chapa MD [address] [place] [id number] PCP - General 06/29/22 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 [employer] provides no warranty or guarantee of the accuracy or completeness of information in this document.
[2024-06-26 19:43] VITALS: TEMP 36.6
[2024-06-26 19:44] VITALS: BP 116/63; PULSE 106
[2024-06-26 19:59] LABS: Bilirubin Urine NEGATIVE (NEGATIVE); Blood Urine NEGATIVE (NEGATIVE); Clarity Urine CLEAR (CLEAR); Color Urine LT. YELLOW (YELLOW); Glucose Urine UA NEGATIVE (NEGATIVE); Ketones Urine NEGATIVE (NEGATIVE); Leukocyte Esterase Urine LARGE (NEGATIVE); Nitrite Urine NEGATIVE (NEGATIVE); Protein Urine NEGATIVE (NEG/TRACE); Specific Gravity Urine 1.015 (1.005-1.025); pH Urine 7.5 (5.0-9.0)
[2024-06-26 20:00] LABS: Urine Microscopic Indicated YES
[2024-06-26 20:05] LABS: RBC Urine 0-2 #/HPF (0-2)
[2024-06-26 20:06] LABS: Amorphous Sediment Urine MODERATE; Bacteria Urine TRACE #/HPF (NONE SEEN); Cast Seen? NONE SEEN #/LPF (NONE SEEN); Crystals Seen? Seen #/HPF (None Seen); Mucus Urine NONE SEEN (NONE SEEN); Squamous Epithelial Cell Urine FEW #/LPF (NONE/RARE); Urine Culture Indicated YES-LC
[2024-06-26 20:51] VITALS: BP 104/50; PULSE 89
[2024-06-26] MEDS: MEPERIDINE HCL/PF 25 MG/ML VIAL IM (20:51)
[2024-06-26 20:53] LABS: Basophils Percent Auto 0.1 % (0.2-2.0); Eosinophils Percent Auto 0.4 % (0.9-7.0); Hematocrit 34.5 % (36.0-48.0); Hemoglobin 11.5 g/dL (12.0-16.0); Immature Granulocytes Abs Auto 0.05 10^3/uL (0.00-0.03); Immature Granulocytes Pct Auto 0.6 % (0.0-0.5); Lymphocytes Absolute Auto 1.9 10^3/uL (1.2-3.8); Lymphocytes Percent Auto 20.6 % (20.5-60.0); Mean Corpuscular HGB Conc 33.3 g/dL (29.9-35.2); Mean Corpuscular Hemoglobin 27.9 pg (26.7-34.0); Mean Corpuscular Volume 83.7 fL (81.0-99.0); Mean Platelet Volume 11.3 fL (9.5-13.5); Monocytes Absolute Auto 0.7 10^3/uL (0.3-0.8); Neutrophils Absolute Auto 6.3 10^3/uL (1.4-6.5); Neutrophils Percent Auto 70.3 % (43.0-75.0); Platelet Count 175 10^3/uL (150-450); Red Blood Count 4.12 10^6/uL (4.20-5.40); Red Cell Distribution Width 13.5 % (11.0-15.0)
[2024-06-26 21:12] LABS: Alanine Aminotransferase 12 U/L (14-59); Albumin Globulin Ratio 0.5; Albumin Level 2.2 g/dL (3.4-5.0); Alkaline Phosphatase 97 U/L (46-116); Anion Gap 8.1; Aspartate Amino Transferase 9 U/L (15-37); BUN Creatinine Ratio 9.8; Bilirubin Total 0.2 mg/dL (0.2-1.0); Calcium 9.1 mg/dL (8.5-10.1); Carbon Dioxide 29.9 mmol/L (21.0-32.0); Chloride 102 mmol/L (98-107); Estimated GFR (African America >60 (>=60 mL/min/1.73m^2); Estimated GFR (Non-African Ame >60 (>=60 mL/min/1.73m^2); Globulin 4.3 g/dL; Glucose 100 mg/dL (74-106); Sodium 136 mmol/L (136-145); Total Protein 6.5 g/dL (6.4-8.2); Uric Acid 4.3 mg/dL (2.6-6.0)
[2024-06-26 21:21] LABS: INR 0.97; Partial Thromboplastin Time 23.8 sec (22.3-36.2); Prothrombin Time 10.3 sec (9.0-11.6)
[2024-06-26 21:22] LABS: Fibrinogen 461 mg/dL (200-400)
[2024-06-26 21:42] LABS: Protein Creatinine Ratio Urine 0.18
[2024-06-26 22:57] LABS: Estimated GFR (African America >60 (>=60 mL/min/1.73m^2); Estimated GFR (Non-African Ame >60 (>=60 mL/min/1.73m^2)
== END 2024-06-26 23:30 | disposition home or self-care (01) ==
LOC: FBC 19:19
PROVIDERS: Admitting Provider Obstetrics & Gynecology; Visit Provider Obstetrics & Gynecology
DX: O99.891 Other specified diseases and conditions complicating pregnancy (principal); R51.9 Headache, unspecified; Z3A.31 31 weeks gestation of pregnancy
CPT/HCPCS: 36415; 59025; 70450; 80053; 81001; 82565; 82570; 84156; 84520; 84550; 85025; 85384; 85610; 85730; 87086; 96372; G0378; G0379; J2175

== ENCOUNTER 2024-06-27 16:44 | Observation (INO) | payer OTHER, SELFPAY ==
[2024-06-27 17:01] VITALS: BP 124/65; PULSE 114
[2024-06-27 18:27] VITALS: PULSE 104; TEMP 36.8; O2SAT 98
[2024-06-27 18:29] LABS: Bilirubin Urine NEGATIVE (NEGATIVE); Blood Urine NEGATIVE (NEGATIVE); Clarity Urine CLEAR (CLEAR); Color Urine YELLOW (YELLOW); Glucose Urine UA NEGATIVE (NEGATIVE); Ketones Urine NEGATIVE (NEGATIVE); Leukocyte Esterase Urine NEGATIVE (NEGATIVE); Nitrite Urine NEGATIVE (NEGATIVE); Protein Urine NEGATIVE (NEG/TRACE); Specific Gravity Urine 1.025 (1.005-1.025); Urine Microscopic Indicated NO
--- NOTE | 2024-06-27 18:29 | ECG_ITS ---
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 Measurements Intervals Star Rate: 101 P: 21 VA: 129 QRS: 54 QRSD: 93 T: 14 QT: 349 QTc: 454 Interpretive Statements SINUS TACHYCARDIA NONSPECIFIC T-WAVE ABNORMALITY ABNORMAL ECG Compared to ECG 12/13/2023 18:02:34 T-wave abnormality now present Electronically Signed On 06-28-2024 6:31:04 EDT by MAILE AGUILAR M.D.
[2024-06-27] MEDS: BETAMETHASONE ACE/BETAMETHASONE SOD PHOS 30 MG/5 ML 12 MG IM (20:20)
== END 2024-06-27 20:30 | disposition home or self-care (01) ==
LOC: FBC 16:46
PROVIDERS: Admitting Provider Family Medicine Addiction Medicine; Visit Provider Family Medicine Addiction Medicine
DX: O26.853 Spotting complicating pregnancy, third trimester (principal); Z3A.31 31 weeks gestation of pregnancy; O26.893 Other specified pregnancy related conditions, third trimester; R07.89 Other chest pain
CPT/HCPCS: 59025; 71250; 76815; 76817; 81003; 93005; 96372; G0378; G0379; J0702

== ENCOUNTER 2024-06-28 06:13 | Observation (INO) | payer OTHER, SELFPAY ==
[2024-06-28] VITALS (19 sets, daily range): BP systolic 105–131; BP diastolic 57–66; PULSE 102–145; TEMP 37
--- OUTSIDE RECORDS SUMMARY | 2024-06-28 06:20 | XMS_ITS | CCD ---
Author Organization [facility] Care Team Providers Care Licensed Practical Nurse Clinic Nurse Name Role Phone EBWANDA, SHARLA Admitting Unavailable EBWANDA SHARLA Attending Unavailable OBDULIA ONEIL Referring Unavailable OBDULIA ONEIL Primary Care Unavailable ND Procedure Practitioner Unavailab SHARLA Singh Surgeon Unavailable ND Procedure Practitioner Unavailab AREN eFrguson Surgeon Unavailable DO Obdulia Oneil Primary Care Provider DO Radha Molina Attending Provider [phone] MD Jennie Smith Admit Provider MD Jennie Smith Attending Provider Spasic, CUT OFF SAW OPERATOR PIPE BLANKS-C Nataly Torres Attending Provider Spasic, CUT OFF SAW OPERATOR PIPE BLANKS-C Nataly Torres Primary Care Provider DO Marcello [...] NONE LISTED Primary Care Unavaila ble Spasic, CUT OFF SAW OPERATOR PIPE BLANKS-C Nataly E Primary Care Provider DO Mary Kay Cantu Attending Provider MD Jennie Smith Attending Provider CADE Ortiz Emergency Provider Spasic, CUT OFF SAW OPERATOR PIPE BLANKS-C Nataly E Attending Provider [facility] Primary Care Prov ider DO Radha Molina Attending Provider [phone] Spasic, CUT OFF SAW OPERATOR PIPE BLANKS-C Nataly E Primary Care Provider DO Mary Kay Cantu Attending Provider MD Jennie Smith Attending Provider CADE Ortiz Emergency Provider Spasic, CUT OFF SAW OPERATOR PIPE BLANKS-C Nataly E Attending Provider [facility] Primary Care Prov ider DO Radha Molina Attending Provider NO FAMILY, PHYSICIAN Primary Care Provider Unava ilable MD Ede Way Admit Provider MD Ede Way Attending Provider Spasic, CUT OFF SAW OPERATOR PIPE BLANKS-C Nataly E Primary Care Provider [phone] DO Mary Kay Cantu Attending Provider Spasic, CUT OFF SAW OPERATOR PIPE BLANKS-C Nataly E Attending Provider DO Radha Molina Attending Provider [facility] Primary Care Prov ider Spasic, CUT OFF SAW OPERATOR PIPE BLANKS-C Nataly E Attending Provider Spasic, CUT OFF SAW OPERATOR PIPE BLANKS-C Nataly E Primary Care Provider DO Carmelo Vinson Emergency Provider RANDALL Leon Emergency Provider Spasic, CUT OFF SAW OPERATOR PIPE BLANKS-C Nataly E Referring Provider CADE Arceo Racheal [...] Attending Unavailable Spasic, Nataly E Admitting Unavailable [facility] Primary Care U navailable Spasic, Nataly [...] emmanuel Tai Chapman MD Primary Care Provider [phone] [address] C[address]OLL Attending Unavailable CAMACHO HERNANDEZ Referring [...] Date of Onset Reaction(s) Facility (1 source) 301[address],00 Drug allergy (disorder) 07-01-2012 [facility] Repository Medications Current Medications Medication Drug Class(es) Dates Sig (Normalized) Sig (Original) acetaminophen 300 mg / codeine phosphate 30 mg oral tablet (6 sources) Opioid Agonist Start: 06-01-2024 take 1 [...] Glucose Monitoring Suppl (D-Care Glucometer) w/Device kit (8 sources) Start: 05-29-2024 End: 05-29-2025 Blood Glucose [...] Active promethazine hydrochloride 12.5 mg oral tablet (6 sources) Phenothiazine Start: 06-02-19 take 1 tablet [...] 19, 2022 12:21pm take 1 capsule by [facility] every twenty-four hours in the morning [...] by mouth every four hours Hydrocodone-Acetam inophen (Vina) 5-325 mg tablet Discontinued 2 TAB PO [...] 20, 2017 1:01pm 168 hr ethinyl estradiol 0.73185 mg/hr / norelgestromin 0.77024 mg/hr transdermal system (20 sources) Progestin, Estrogen [...] 20, 2022 12:00am February 13, 2023 7:43pm [employer] [place]-3 Fatty Acids-Fish Oil (20 sources) Start: 06-23-2022 End: 11-19-2022 take 1 capsule by mouth once daily [employer]-3 Fatty Acids-Fish Oil Discontinued 1 CAP PO Daily June 22, 2022 11:00pm November 19, 2022 11:22am Start: 06-23-2022 End: 11-19-2022 take 1 capsule by mouth once daily [employer] [place]-3 Fatty Acids-Fish Oil Discontinued 1 CAP PO Daily June 23, 2022 12:00am November 19, 2022 12:22pm Start: 06-23-2022 take 1 capsule by [facility] once daily [employer] [place]-3 Fatty Acids-Fish Oil Active 1 CAP PO [...] 07, 2017 12:00am November 12, 2017 12:01am Tofmuqep-Asx-Rq-Fa () 1 mg Tablet (20 sources) Start: 11-19-2022 End: 02-13-2023 take 1 tablet by mouth once daily Iacvarlz-Qzx-Bx-Fa () 1 mg Tablet Discontinued 1 TAB PO Daily November 19, 2022 12:00am February 13, 2023 7:43pm Start: 11-19-2022 End: 02-13-2023 take 1 tablet by mouth once daily Nhynorgi-Yfn-Ca-Fa () 1 mg Tablet Discontinued 1 TAB PO Daily November 18, 2022 11:00pm February 13, 2023 6:43pm Start: 11-19-2022 take 1 tablet by long th once daily Snwlyzbm-Yyk-Gf-Fa () 1 mg Tablet Active 1 TAB PO Daily November 18, 2022 11:00pm Start: 11-19-2022 take 1 tablet by long th once daily Zjlxumtt-Jzb-Tr-Fa () 1 mg Tablet Active 1 TAB [...] Test Name Value Interpretation Reference Range Facility [facility] UA (CLEAN/CATCH) RECORDING ENGINEER/ELINOR RO IF IND.on 06-26-2024 BILIRUBIN URINE Negative NEGATIVE [facility] BLOOD URINE Negative NEGATIVE [facility] Clarity (U) CLEAR CLEAR [facility] Color (U) LT. YELLOW YELLOW [facility] GLUCOSE URINE UA Negative NEGATIVE mg/dL [facility] Interpretation and review of laboratory results Abnormal [facility] Ketones Ql (U) Negative NEGATIVE mg/dL [facility] Leukocyte esterase Test strip Ql (U) LARGE Abnormal NEGATIVE [facility] NITRITE URINE Negative NEGATIVE [facility] pH (U) 7.5 [pH] 5.0 - 9.0 [facility] PROTEIN URINE Negative NEG/TRACE mg/dL [facility] SPECIFIC GRAVITY URINE 1.015 1.005 - 1.025 [facility] URINE MICROSCOPIC INDICATED YES [facility] UROBILINOGEN URINE 1.0 EU/dL 0.2 - 1.0 EU/dL [facility] Urinalysis macro (dipstick) panel (U)on 06-15-2024 Bilirubin, UA Negative Negative - 4(70) +++ mg/dL [facility] Blood, UA Negative Negative - 50 Isaac/mcL [facility] Clarity, UA Clear [facility] Color, UA Yellow [facility] Glucose, UA Positive Negative - 2000(110) ++++ mg/dL [facility] Comment on above: 100 Interpretation and review of laboratory results Abnormal [facility] Ketones, UA Positive Negative - 160(16) ++++ mg/dL [facility] Comment on above: trace Leukocytes, UA Trace Negative - 500+++ Shreya/mcL [facility] Nitrite, UA Negative Negative - Positive [facility] pH, UA 7 5 - 9 [facility] Protein, UA Trace Negative - 2000(20) ++++ mg/dL [facility] Spec Grav, UA 1.025 1 - 1.03 [facility] Urobilinogen, UA 1.0 0.2 - 12 mg/dL [facility] US OB FOLLOW UP TRANSABDOMIN AL APPROACHon [...] 1437 gm / 3 lbs, 2 oz (9264-8219 gm) [place] Normal: 1405 gm (1618-5312 gm) [place] Wt%: 57% for 29.1 wks [...] II, MD, PHD at 03-Jun-2024 06:46:50 PM [facility] Teleradiology Normal Not Available Comment on above: Order Comment: US OB TRANSVAGINAL (CERVICAL LENGTH) Estimated Date of Delivery: 08/23/24 Gestational Age as of 05/04/2024: 24w1d Urinalysis macro (dipstick) panel (U)on 06-01-2024 Bilirubin, UA Negative Negative - 4(70) +++ mg/dL [facility] Blood, UA Positive Negative - 50 Isaac/mcL [facility] Comment on above: Trace-intact Clarity, UA Clear [facility] Color, UA Yellow [facility] Glucose, UA Negative Negative - 2000(110) ++++ mg/dL [facility] Interpretation and review of laboratory results Abnormal [facility] Ketones, UA Negative Negative - 160(16) ++++ mg/dL [facility] Leukocytes, UA Negative Negative - 500+++ Shreya/mcL [facility] Nitrite, UA Negative Negative - Positive [facility] pH, UA 7 5 - 9 [facility] Protein, UA Negative Negative - 2000(20) ++++ mg/dL [facility] Spec Grav, UA 1.02 1 - 1.03 [facility] Urobilinogen, UA 0.2 0.2 - 12 mg/dL [facility] ALL CBC WITH AUTO DIFFon BASOPHILS ABSOLUTE AUTO 0 [facility] Basophils/100 WBC (Bld) 0.2 % 0.2 - 2.0 % [facility] Eosinophils/100 WBC (Bld) 0.6 % Low 0.9 - 7.0 % [facility] Erythrocyte distribution width (RBC) [Ratio] 13 % 11.0 - 15.0 % [facility] Hematocrit (Bld) [Volume fraction] 35.1 % Low 36.0 - 48.0 % [facility] Hemoglobin (Bld) [Mass/Vol] 11.8 g/dL Low 12.0 - 16.0 g/dL [facility] IMMATURE GRANULOCYTES ABS AUTO 0.04 High [facility] Immature granulocytes/100 WBC (Bld) 0.4 % 0.0 - 0.5 % [facility] Interpretation and review of laboratory results Abnormal [facility] LYMPHOCYTES ABSOLUTE AUTO 1.4 [facility] Lymphocytes/100 WBC (Bld) 15.5 % Low 20.5 - 60.0 % [facility] MCH (RBC) [Entitic mass] 28.4 pg 26.7 - 34.0 pg [facility] MCHC (RBC) [Mass/Vol] 33.6 g/dL 29.9 - 35.2 g/dL [facility] MCV (RBC) [Entitic vol] 84.6 fL 81.0 - 99.0 fL [facility] MONOCYTES ABSOLUTE AUTO 0.6 [facility] Monocytes/100 WBC (Bld) 6.3 % 1.7 - 12.0 % [facility] NEUTROPHILS ABSOLUTE AUTO 6.8 High [facility] Neutrophils/100 WBC (Bld) 77 % High 43.0 - 75.0 % [facility] Platelet mean volume (Bld) [Entitic vol] 11 fL 9.5 - 13.5 fL [facility] TBH EO # 0.1 [facility] TBH PLT 174 [facility] TB RBC 4.15 Low [facility] TB WBC 8.9 [facility] Urinalysis macro (dipstick) panel (U)on 05-04-2024 Bilirubin, UA Negative Negative - 4(70) +++ mg/dL [facility] Blood, UA Negative Negative - 50 Isaac/mcL [facility] Clarity, UA Clear [facility] Color, UA Yellow [facility] Glucose, UA Negative Negative - 1999(110) ++++ mg/dL [facility] Interpretation and review of laboratory results Abnormal [facility] Ketones, UA Negative Negative - 160(16) ++++ mg/dL [facility] Leukocytes, UA Trace Negative - 500+++ Shreya/mcL [facility] Nitrite, UA Negative Negative - Positive [facility] pH, UA 7 5 - 9 [facility] Protein, UA Negative Negative - 1999(20) ++++ mg/dL [facility] Spec Grav, UA 1.02 1 - 1.03 [facility] Urobilinogen, UA 0.2 0.2 - 12 mg/dL [facility] Outside Recordson 05-01-2024 Outside Records [id number]#1.00OTGTI FF Normal [facility] UA (CLEAN/CATCH) RECORDING ENGINEER/ELINOR RO IF IND.on 04-14-2024 BILIRUBIN URINE Negative NEGATIVE [facility] BLOOD URINE Negative NEGATIVE [facility] Clarity (U) CLEAR CLEAR [facility] Color (U) LT. YELLOW YELLOW [facility] GLUCOSE URINE UA Negative NEGATIVE mg/dL [facility] Interpretation and review of laboratory results Abnormal [facility] Ketones Ql (U) Negative NEGATIVE mg/dL [facility] Leukocyte esterase Test strip Ql (U) Negative NEGATIVE [facility] NITRITE URINE Negative NEGATIVE [facility] pH (U) 6.5 [pH] 5.0 - 9.0 [facility] PROTEIN URINE Negative NEG/TRACE mg/dL [facility] SPECIFIC GRAVITY URINE <=1.005 Abnormal 1.005 - 1.025 [facility] URINE MICROSCOPIC INDICATED NO [facility] UROBILINOGEN URINE 0.2 EU/dL 0.2 - 1.0 EU/dL [facility] IGP,APTIMA HPV,AGE GDLNon AGE GDLN ACOG TESTING Note . [facility] Comment on above: TESTS RESULT FLAG UN ITS REF RANGE LAB Clinician Provided Cytology Information Source.............Cervix No. of containers..01 ThinPrep Vial Age Algo ACOG Rossana... FLAG LEGEND: L-Low Normal,H-High Normal,LL-Alert Low,HH-Alert High <-Panic Low,>-Panic High,A-Abnormal,AA-Critical Abnormal Performed at: 01 =G [facility] [place] [address] Christina Chan MD, IGP, RFX APTIMA HPV ASCU Note . [facility] Comment on above: TESTS RESULT FLAG U NITS REF RANGE LAB DIAGNOSIS: 02 NEGATIVE FOR INTRAEPITHELIAL LESION OR MALIGNANCY. Specimen adequacy: 02 Satisfactory for evaluation. No endocervical component is identified. Performed by: Dereje Kaufman, [employer] ([facility]) . 02 Note: Note 02 The [...] <-Panic Low,>-Panic High,A-Abnormal,AA-Critical Abnormal Performed at: [address] [id number] Christina Chan MD, Performed at: =[address] [id number] [employer] Shar[employer]hooter: Christina Chan MD, Phone: [phone] Performed at: [address] [id number] [employer]ooter: Christina Chan MD, Phone: [phone] SPATULA-ALONE CERVIX [facility] RECURRENT VAGINITIS (HTRX)on 04-07-2024 ATOPOBIUM VAGINAE 0 [facility] ATOPOBIUM VAGINAE Not detected [facility] BVAB 2,3 (BACTERIAL VAGINOSIS ASSOCIATED BACTERIA 2, 3); MOBILUNCUS SPP 0 [facility] BVAB 2,3 (BACTERIAL VAGINOSIS ASSOCIATED BACTERIA 2, 3); MOBILUNCUS SPP Not detected [facility] CURT ALBICANS, PARAPSILOSIS, TROPICALIS 0 [facility] CURT ALBICANS, PARAPSILOSIS, TROPICALIS Not detected [facility] CURT GLABRATA 0 [facility] CURT GLABRATA Not detected [facility] CURT KRUSEI 0 [facility] CURT KRUSEI Not detected [facility] CHLAMYDIA TRACHOMATIS 0 [facility] CHLAMYDIA TRACHOMATIS Not detected [facility] GARDNERELLA VAGINALIS 0 [facility] GARDNERELLA VAGINALIS Not detected N [facility] MEGASPHAERA (TYPES 1, 2) 0 [facility] MEGASPHAERA (TYPES 1, 2) Not detected [facility] MYCOPLASMA GENITALIUM 0 [facility] MYCOPLASMA GENITALIUM Not detected N [facility] NEISSERIA GONORRHOEAE 0 [facility] NEISSERIA GONORRHOEAE Not detected N [facility] TRICHOMONAS VAGINALIS 0 [facility] TRICHOMONAS VAGINALIS Not detected N [facility] Urinalysis macro (dipstick) panel (U)on 04-06-2024 Bilirubin, UA Negative Negative - 4(70) +++ mg/dL [facility] Blood, UA Negative Negative - 50 Isaac/mcL [facility] Clarity, UA Clear [facility] Color, UA Yellow [facility] Glucose, UA Negative Negative - 2000(110) ++++ mg/dL [facility] Interpretation and review of laboratory results Normal [facility] Ketones, UA Negative Negative - 160(16) ++++ mg/dL [facility] Leukocytes, UA Negative Negative - 500+++ Shreya/mcL [facility] Nitrite, UA Negative Negative - Positive [facility] pH, UA 8.5 5 - 9 [facility] Protein, UA Negative Negative - 2000(20) ++++ mg/dL [facility] Spec Grav, UA 1.02 1 - 1.03 [facility] Urobilinogen, UA 1.0 0.2 - 12 mg/dL [facility] ED Note - Physicianon 2024 ED Note - Physician [id number]#1.00OTGTI FF [facility] Rad - Other Radiology Report on 03-20-2024 Rad - Other Radiology Report [id number]#1.00OTGTI FF [facility] Rad - Other Radiology Report on 03-14-2024 Rad - Other Radiology Report [id number]#1.00OTGTIF F [facility] US OB CERVICAL LENGTHon 02-[address] [address] Ultrasound Report Signed Patient: ROSETTE ALBA MR#: [id number] : 2000 Acct:[id number] Age/Sex: 23 / F ADM Date: 03/14/24 Loc: US Attending Dr: Camacho Hernandez D.O. Ordering Physician: Camacho Hernandez D.O. Date of Service: 03/14/24 Procedure(s): US OB cervical length Accession Number(s): [id number] cc: Camacho Hernandez D.O.; OBDULIA ONEIL [address] [address] Patient Name: ROSETTE ALBA MRN: [id number] date: 2000 Sex: F Assigned Patient Location: US Current Patient Location: US Accession/Order Number: [id number] Exam Date: 03/14/2024 09:32 Report Date: 03/14/2024 [...] Signed By: 03/14/24 1006 DD/ 1003 TD/TT: Tax Specialist: [facility] Radiology, Radiologi MD barry - 03/14/2024 [place] [address] Ultrasound Report Signed Patient: ROSETTE ALBA MR#: [id number] : 2000 Acct:[id number] Age/Sex: 23 / F ADM Date: 03/14/24 Loc: US Attending Dr: Camacho Hernandez D.O. Ordering Physician: Camacho Hernandez D.O. Date of Service: 03/14/24 Procedure(s): US OB cervical length Accession Number(s): [id number] cc: Camacho Hernandez D.O.; OBDULIA ONEIL [place] [address] Patient Name: ROSETTE ALBA MRN: [facility]:[id number] date: 2000 Sex: F Assigned Patient Location: US Current Patient Location: US Accession/Order Number: [id number] Exam Date: 03/14/2024 09:32 Report Date: 03/14/2024 [...] Signed By: 03/14/24 1006 DD/ 1003 TD/TT: Tax Specialist: [facility] Radiology Study observation (narrative) [facility] US OB CERVICAL LENGTHOrdered By: Radiologist Radiology on 03-14-2024 [facility] Work Phone: Urinalysis macro (dipstick) panel (U)on 03-09-2024 Bilirubin, UA Negative Negative - 4(70) +++ mg/dL [facility] Blood, UA Negative Negative - 50 Isaac/mcL [facility] Clarity, UA Clear [facility] Color, UA Yellow [facility] Glucose, UA Negative Negative - 1999(110) ++++ mg/dL [facility] Interpretation and review of laboratory results Normal [facility] Ketones, UA Negative Negative - 160(16) ++++ mg/dL [facility] Leukocytes, UA Negative Negative - 500+++ Shreya/mcL [facility] Nitrite, UA Negative Negative - Positive [facility] pH, UA 7.5 5 - 9 [facility] Protein, UA Negative Negative - 2000(20) ++++ mg/dL [facility] Spec Grav, UA 1.02 1 - 1.03 [facility] Urobilinogen, UA 1.0 0.2 - 12 mg/dL [facility] Free Cell DNAon 2024 [facility] BOX TESTon 02-25-2024 BOX TEST SENT OUT [facility] BOX1 [facility] BOX2 02/25/2024 [facility] BOX [facility] HCG ( test) Ql (U)o n 02-03-2024 Interpretation and review of laboratory results Abnormal [facility] Preg Test, Ur Positive Negative [facility] Rad - Ultrasound Reporton Rad - Ultrasound Report [id number]#1.00OTGTIF F [facility] Urinalysis macro (dipstick) panel (U)on 02-03-2024 Bilirubin, UA Negative Negative - 4(70) +++ mg/dL [facility] Blood, UA Negative Negative - 50 Isaac/mcL [facility] Clarity, UA Clear [facility] Color, UA Yellow [facility] Glucose, UA Negative Negative - 1999(110) ++++ mg/dL [facility] Interpretation and review of laboratory results Abnormal [facility] Ketones, UA Negative Negative - 160(16) ++++ mg/dL [facility] Leukocytes, UA Negative Negative - 500+++ Shreya/mcL [facility] Nitrite, UA Negative Negative - Positive [facility] pH, UA 5.5 5 - 9 [facility] Protein, UA Positive Negative - 1999(20) ++++ mg/dL [facility] Comment on above: 100 Spec Grav, UA 1.03 1 - 1.03 [facility] Urobilinogen, UA 0.2 0.2 - 12 mg/dL [facility] Rad - Other Radiology Report on 01-07-2024 Rad - Other Radiology Report [id number]#1.00OTGTIFF [facility] Outside Recordson 12-14-2023 Outside Records [id number]#1.00OTGTIF [facility] Outside Records [id number]#1.00OTGTIF [facility] 10-07-2023 [facility] [place] [address] Ultrasound Report Signed Patient: Rosette Alba MR#: [id number] : 2000 Acct:[id number] Age/Sex: 23 / F ADM Date: 10/07/23 Loc: Room: Type: [facility] Attending Dr: Nataly BOND Ordering Provider: RONDA [...] FINDINGS.. Impression dictated by: Richard Kirkland Jr., DIdaniaOIdania10/07/2023 11:25 AM Dictation Location: [place] [address] [facility]: [facility] Transcribed By: ANDREY 10/07/23 1125 Dictated By: Richard Kirkland Jr, DO 10/07/23 1123 Signed By: 10/07/23 1125 Normal [facility] US thyroidon 10-07-2023 thyroid [facility] [place] [address] Ultrasound Report Signed Patient: Rosette Alba MR#: [id number] : 2000 Acct:[id number] Age/Sex: 23 / F ADM Date: 10/07/23 Loc: Room: Type: [facility] Attending Dr: Nataly BOND Ordering Provider: RONDA eRyes Date of Service: 10/07/23 US/US thyroid: Hypothyroidism, [...] Kirkland Jr., D.O.10/07/2023 11:26 AM Dictation Location: [place] [address] Tech: Marie Max Transcribed By: ANDREY 10/07/23 1126 Dictated By: Richard Kirkland Jr, DO 10/07/23 1125 Signed By: 10/07/23 1126 Normal [facility] XR KUBon 10-07-2023 XR KUB [facility] [place] [address] XRay Report Signed Patient: Rosette Alba MR#: [id number] : 2000 Acct:[id number] Age/Sex: 23 / F ADM Date: 10/07/23 Loc: Room: Type: [facility] Attending Dr: Nataly BOND Copies to: [...] Kirkland Jr., D.O.10/07/2023 8:50 AM Dictation Location: [place] [address] Transcribed By: [facility] 10/07/23 0850 Dictated By: Richard Kirkland Jr, DO 10/07/23 0849 Signed By: 10/07/23 0850 Normal [facility] Bacteria [Presence] in Urine by AutomatedOrdered By: Carmelo Vinson on 10-04-2023 Bacteria Auto Ql (U) None seen [HPF] None Seen [facility] Bilirubin Test strip Ql (U)O rdered By: Carmelo Vinson on 10-04-2023 Bilirubin Ql (U) Negative Negative [facility] Color of Urine by AutoOrdere d By: Carmelo Vinson on 10-04-2023 Color (U) Yellow Normal Yellow [facility] Comment on above: Order Comment: Name Collection Type:: Clean-Voided Midstream Performed By: #### A DDONUAPLUS, UHCG #### [place] [address] [place] Dipstick and Microscopicon 0 10-04-2023 Bacteria,Urine None Seen Normal None Seen [facility] Comment on above: Order Comment: Name Collection Type:: Clean-Voided Midstream Performed By: #### A DDONUAPLUS, UHCG #### [place], [place] [id number] [place] Bilirubin,Urine Negative Normal Negative [facility] Comment on above: Order Comment: Name Collection Type:: Clean-Voided Midstream Performed By: #### A DDONUAPLUS, UHCG #### [place] [address] [place] Glucose Ql (U) Normal Normal Normal [facility] Comment on above: Order Comment: Name Collection Type:: Clean-Voided Midstream Performed By: #### A DDONUAPLUS, UHCG #### [place] [address] [place] Hyaline Casts,Urine 0-8 Normal 0-8 [facility] Comment on above: Order Comment: Name Collection Type:: Clean-Voided Midstream Performed By: #### A DDONUAPLUS, UHCG #### [place] [address] [place] Mucus,Urine 4+ Critically abnormal [facility] Comment on above: Order Comment: Name Collection Type:: Clean-Voided Midstream Performed By: #### A DDONUAPLUS, UHCG #### [place] [address] [place] Nitrite,Urine Negative Normal Negative [facility] Comment on above: Order Comment: Name Collection Type:: Clean-Voided Midstream Performed By: #### A DDONUAPLUS, UHCG #### [address] Occult Blood,Urine Negative Normal Negative [facility] Comment on above: Order Comment: Name Collection Type:: Clean-Voided Midstream Performed By: #### A DDONUAPLUS, UHCG #### [address] RBC,Urine 1-2 Normal 0-4 [facility] Comment on above: Order Comment: Name Collection Type:: Clean-Voided Midstream Performed By: #### A DDONUAPLUS, UHCG #### [address] Specificy [place],Urine 1.039 High 1.001-1.03 0 [facility] Comment on above: Order Comment: Name Collection Type:: Clean-Voided Midstream Performed By: #### A DDONUAPLUS, UHCG #### [address] Squamous Epithelial Cell,Urine 5-9 High 0-2 [facility] Comment on above: Order Comment: Name Collection Type:: Clean-Voided Midstream Performed By: #### A DDONUAPLUS, UHCG #### [address] Urobilinogen,Urine 2 mg/dL High Normal [facility] Comment on above: Order Comment: Name Collection Type:: Clean-Voided Midstream Performed By: #### A DDONUAPLUS, UHCG #### [address] WBC,Urine 3-4 Normal 0-4 [facility] Comment on above: Order Comment: Name Collection Type:: Clean-Voided Midstream Performed By: #### A DDONUAPLUS, UHCG #### [address] Epithelial cells.squamous [# /area] in Urine sediment by Automated countOrdered By: Carmelo Vinson on 10-04-2023 Epithelial cells.squamous Auto (Urine sed) [#/Area] 5-9 [HPF] High 0-2 [facility] Erythrocytes [#/area] in Uri ne sediment by Automated countOrdered By: Carmelo Vinson on 10-04-2023 RBC Auto (Urine sed) [#/Area] 1-2 [HPF] 0-4 [facility] Glucose [Mass/volume] in Uri ne by Test stripOrdered By: Carmelo Vinson on 10-04-2023 Glucose Test strip (U) [Mass/Vol] Normal mg/dL Normal [facility] HCG ( test) IA.rapi d Ql (U)Ordered By: PROVIDER TEMP on 10-04-2023 HCG ( test) Ql (U) Negative [facility] HCG,Urineon 10-04-2023 Beta HCG ( test) Ql (U) Negative Normal [facility] Comment on above: Order Comment: Name Collection Type:: Clean-Voided Midstream Result Comment: PERF ORMED BY: [place] [address] PATHOLOGIST ASSISTANT LIBRARIAN ALLA OROZCO M.D. Performed By: #### A DDISABELUAPLUS, [facility] #### [facility] [address] Hemoglobin Test strip Ql (U) Ordered By: Carmelo Vinson on 10-04-2023 Hemoglobin Ql (U) Negative Negative [facility] Hyaline casts [#/area] in Ur ine sediment by Automated countOrdered By: Carmelo Vinson on 10-04-2023 Hyaline casts Auto (Urine sed) [#/Area] 0-8 [LPF] 0-8 [facility] Ketones [Presence] in Urine by Test stripOrdered By: Carmelo Vinson on 10-04-2023 Ketones Ql (U) Trace High Negative [facility] Comment on above: Order Comment: Name Collection Type:: Clean-Voided Midstream Performed By: #### A DDONUAPLUS, UHCG #### [facility] [address] [place] [address] [place] Leukocyte esterase [Presence ] in Urine by Test stripOrdered By: Carmelo Vinson on 10-04-2023 Leukocyte esterase Test strip Ql (U) Negative Normal Negative [facility] Comment on above: Order Comment: Name Collection Type:: Clean-Voided Midstream Performed By: #### A IHSAN GARCIAG #### [facility] [address] Leukocytes [#/area] in Urine sediment by Automated countOrdered By: Carmelo Vinson on 10-04-2023 WBC Auto (Urine sed) [#/Area] 3-4 [HPF] 0-4 [facility] Mucus [Presence] in Urine by AutomatedOrdered By: Carmelo Vinson on 10-04-2023 Mucus Auto Ql (U) 4+ [LPF] Abnormal [facility] Nitrite Test strip Ql (U)Ord ered By: Carmelo Vinson on 10-04-2023 Nitrite Ql (U) Negative Negative [facility] Protein [Mass/volume] in Uri ne by Test stripOrdered By: Carmelo Vinson on 10-04-2023 Protein (U) [Mass/Vol] 30 mg/dL High Negative [facility] Comment on above: Order Comment: Name Collection Type:: Clean-Voided Midstream Performed By: #### A IHSAN GARCIAG #### [address] Specific gravity Test strip (U) [Rel density]Ordered By: Carmelo Vinson on 10-04-2023 Specific gravity (U) [Rel density] 1.039 High 1.001-1.03 0 [facility] Urine appearanceOrdered By: Carmelo Vinson on 10-04-2023 Appearance (U) Clear Normal Clear [facility] Comment on above: Order Comment: Name Collection Type:: Clean-Voided Midstream Performed By: #### A JOSE UHAnirudhG #### [facility] [address] [place] [address] Urobilinogen Test strip (U) [Mass/Vol]Ordered By: Carmelo Vinson on 10-04-2023 Urobilinogen (U) [Mass/Vol] 2 mg/dL High Normal [facility] pH of Urine by Test stripOrd ered By: Carmelo Vinson on 10-04-2023 pH (U) 6.0 [pH] Normal 5.0-9.0 [facility] Comment on above: Order Comment: Name Collection Type:: Clean-Voided Midstream Performed By: #### A DDONUAPLUS, C #### [facility] [address] Alanine aminotransferase [En zymatic activity/volume] in Serum or PlasmaOrdered By: Nataly Toure on 09-30-2023 ALT [Catalytic activity/Vol] 14 U/L Normal 7-52 [facility] Comment on above: Order Comment: Reaso n for Exam Adenopathy Reason for Exam Iron deficiency Reason for Exam Hypothyroidism, unspecified type Performed By: #### C USTB #### [address] Albumin [Mass/volume] in Ser um or Plasma by Bromocresol green (BCG) dye binding methoOrdered By: Nataly Toure on 09-30-2023 Albumin BCG dye [Mass/Vol] 4.2 g/dL 3.5-5.7 [facility] Alkaline phosphatase [Enzyma tic activity/volume] in Serum or PlasmaOrdered By: Nataly Toure on 09-30-2023 ALP [Catalytic activity/Vol] 80 U/L Normal 34-104 [facility] Comment on above: Order Comment: Reaso n for Exam Adenopathy Reason for Exam Iron deficiency Reason for Exam Hypothyroidism, unspecified type Performed By: #### C USTB #### [facility] [address] [place] [address] [place] Aspartate aminotransferase [ Enzymatic activity/volume] in Serum or PlasmaOrdered By: Nataly Toure on 09-30-2023 AST [Catalytic activity/Vol] 10 U/L Low 13-39 [facility] Comment on above: Order Comment: Reaso n for Exam Adenopathy Reason for Exam Iron deficiency Reason for Exam Hypothyroidism, unspecified type Performed By: #### C USTB #### [place] [address] [place] Automated basophil %Ordered By: Nataly Toure on 09-30-2023 Basophils/100 WBC (Bld) 0.5 % Normal . [facility] Comment on above: Order Comment: Reaso n for Exam Adenopathy Performed By: #### C USTB #### [address] Automated basophil countOrde red By: Nataly Delonc on 09-30-2023 Basophils (Bld) [#/Vol] 0.0 10*3/uL Normal 0.0-0.2 [facility] Comment on above: Order Comment: Reaso n for Exam Adenopathy Result Comment: PERF ORMED BY: [place] [address] PATHOLOGIST ASSISTANT LIBRARIAN ALLA OROZCO M.D. Performed By: #### C USTB #### [address] Automated blood monocyte cou ntOrdered By: Nataly Jerniganc on 09-30-2023 Monocytes (Bld) [#/Vol] 0.7 10*3/uL Normal 0.0-0.8 [facility] Comment on above: Order Comment: Reaso n for Exam Adenopathy Performed By: #### C USTB #### [address] Automated eosinophil %Ordere d By: Nataly Spaaprilc on 09-30-2023 Eosinophils/100 WBC (Bld) 0.4 % Normal . [facility] Comment on above: Order Comment: Reaso n for Exam Adenopathy Performed By: #### C USTB #### [address] Automated eosinophil countOr dered By: Nataly Spasic on 09-30-2023 Eosinophils (Bld) [#/Vol] 0.0 10*3/uL Normal 0.0-0.45 [facility] Comment on above: Order Comment: Reaso n for Exam Adenopathy Performed By: #### C USTB #### [address] Automated monocyte %Ordered By: Nataly Spasic on 09-30-2023 Monocytes/100 WBC (Bld) 8.0 % Normal . [facility] Comment on above: Order Comment: Reaso n for Exam Adenopathy Performed By: #### C USTB #### [facility] [address] [place] [address] [place] Automated neutrophil %Ordere d By: Nataly Toure on 09-30-2023 Neutrophils/100 WBC (Bld) 58.7 % Normal . [facility] Comment on above: Order Comment: Reaso n for Exam Adenopathy Performed By: #### C USTB #### [address] Bilirubin.total [Mass/volume ] in Serum or PlasmaOrdered By: Nataly Toure on 09-30-2023 Bilirubin [Mass/Vol] 0.3 mg/dL Normal 0.3-1.0 [facility] Comment on above: Order Comment: Reaso n for Exam Adenopathy Reason for Exam Iron deficiency Reason for Exam Hypothyroidism, unspecified type Performed By: #### C USTB #### [place] [address] [place] Calcium [Mass/volume] in Ser um or PlasmaOrdered By: Nataly Toure on 09-30-2023 Calcium [Mass/Vol] 9.3 mg/dL Normal 8.6-10.3 [facility] Comment on above: Order Comment: Reaso n for Exam Adenopathy Reason for Exam Iron deficiency Reason for Exam Hypothyroidism, unspecified type Performed By: #### C USTB #### [place] [address] [place] Carbon dioxide, total [Moles /volume] in Serum or PlasmaOrdered By: Nataly Toure on 09-30-2023 CO2 [Moles/Vol] 29.9 mmol/L Normal 21.0-31.0 [facility] Comment on above: Order Comment: Reaso n for Exam Adenopathy Reason for Exam Iron deficiency Reason for Exam Hypothyroidism, unspecified type Performed By: #### C USTB #### [place] [address] [place] Chloride [Moles/volume] in S rosa or PlasmaOrdered By: Nataly Toure on 09-30-2023 Chloride [Moles/Vol] 103 mmol/L Normal 98-107 [facility] Comment on above: Order Comment: Reaso n for Exam Adenopathy Reason for Exam Iron deficiency Reason for Exam Hypothyroidism, unspecified type Performed By: #### C USTB #### [address] Complete Blood Count Auto Di ffon 09-30-2023 Mean Corpuscular HGB Conc 33.2 g/dL Normal 32.0-35.0 [facility] Comment on above: Order Comment: Reaso n for Exam Adenopathy Performed By: #### C USTB #### [address] NRBC% 0.1 /100{WBC} Normal 0-0.5 [facility] Comment on above: Order Comment: Reaso n for Exam Adenopathy Performed By: #### C USTB #### [address] Comprehensive Metabolic Pane ramakrishna 09-30-2023 Albumin [Mass/Vol] 4.2 g/dL Normal 3.5-5.7 [facility] Comment on above: Order Comment: Reaso n for Exam Adenopathy Reason for Exam Iron deficiency Reason for Exam Hypothyroidism, unspecified type Performed By: #### C USTB #### [address] GFR/1.73 sq M.predicted MDRD (S/P/Bld) [Vol rate/Area] mL/min/{1.73_m2} Normal [facility] Comment on above: Order Comment: Reaso n for Exam Adenopathy Reason for Exam Iron deficiency Reason for Exam Hypothyroidism, unspecified type Performed By: #### C USTB #### [address] Creatinine [Mass/volume] in Serum or PlasmaOrdered By: Nataly Toure on 09-30-2023 Creatinine [Mass/Vol] 0.73 mg/dL Normal 0.60-1.20 [facility] Comment on above: Order Comment: Reaso n for Exam Adenopathy Reason for Exam Iron deficiency Reason for Exam Hypothyroidism, unspecified type Performed By: #### C USTB #### [address] D-Dimer High Sensitivityon 0 09-30-2023 D-Dimer [...] coagulation studies. Please contact the laboratory at [phone] for redraw instructions. PERFORMED BY: [place] [address] PATHOLOGIST ASSISTANT LIBRARIAN ALLA OROZCO M.D. Performed By: #### G TT3 #### [address] Erythrocyte distribution wid th [Ratio] by Automated countOrdered By: Nataly Toure on 09-30-2023 Erythrocyte distribution width (RBC) [Ratio] 15.0 % Normal 11.9-15.3 [facility] Comment on above: Order Comment: Reaso n for Exam Adenopathy Performed By: #### C USTB #### [address] Erythrocytes [#/volume] in B lood by Automated countOrdered By: Nataly Toure on 09-30-2023 RBC (Bld) [#/Vol] 4.79 10*6/uL Normal 3.60-5.00 [facility] Comment on above: Order Comment: Reaso n for Exam Adenopathy Performed By: #### C USTB #### [facility] [address] [place] [address] [place] Fibrin D-dimer [Presence] in Platelet poor plasma by Latex agglutinationOrdered By: Nataly Toure on 09-30-2023 Fibrin D-dimer LA Ql (PPP) < 200 ng/mL 0-243 [facility] Comment on above: The reference [...] coagulation studies. Please contact the laboratory at [phone] for redraw instructions. Glucose [Mass/volume] in Ser um or PlasmaOrdered By: Nataly Toure on 09-30-2023 Glucose [Mass/Vol] 75 mg/dL Normal 70-100 [facility] Comment on above: ADA recommended refe rence rangeRandom Glucose Reference Range is dependent on time and content of last meal. Glucose of more than 200 mg/dL in a nonstressed, ambulatory subject supports the diagnosis of Diabetes Mellitus. Order Comment: Reaso n for Exam Adenopathy Reason for Exam Iron deficiency Reason for Exam Hypothyroidism, unspecified type Result Comment: [place] om Glucose Reference Range is dependent on time and content of last meal. Glucose of more than 200 mg/dL in a nonstressed, ambulatory subject supports the diagnosis of Diabetes Mellitus. ADA recommended reference range Performed By: #### C USTB #### [facility] [address] [place] [id number] [place] Hematocrit [Volume Fraction] of Blood by Automated countOrdered By: Nataly Toure on 09-30-2023 Hematocrit (Bld) [Volume fraction] 37.9 % Normal 34.0-46.4 [facility] Comment on above: Order Comment: Reaso n for Exam Adenopathy Performed By: #### C USTB #### [facility] [address] [place] [address] Hemoglobin [Mass/volume] in BloodOrdered By: Nataly Spasic on 09-30-2023 Hemoglobin (Bld) [Mass/Vol] 12.6 g/dL Normal 11.8-15.4 [facility] Comment on above: Order Comment: Reaso n for Exam Adenopathy Performed By: #### C USTB #### [facility] [address] [place] [address] Iron [Mass/volume] in Serum or PlasmaOrdered By: Nataly Spasic on 09-30-2023 Iron [Mass/Vol] 43 ug/dL Low 50-212 [facility] Comment on above: Order Comment: Reaso n for Exam Adenopathy Reason for Exam Iron deficiency Reason for Exam Hypothyroidism, unspecified type Performed By: #### G TT3 #### [facility] [address] [place] [address] Iron and TIBC Profileon 09-15 % Iron Saturation 10.6 % Low 20-50 [facility] Comment on above: Order Comment: Reaso n for Exam Adenopathy Reason for Exam Iron deficiency Reason for Exam Hypothyroidism, unspecified type Performed By: #### G TT3 #### [facility] [address] [place], [place] [id number] [facility] Total Iron Binding Capacity 406 ug/dL Normal 255-450 [facility] Comment on above: Order Comment: Reaso n for Exam Adenopathy Reason for Exam Iron deficiency Reason for Exam Hypothyroidism, unspecified type Performed By: #### G TT3 #### [place] [id number] [place] Iron binding capacity [Mass/ volume] in Serum or PlasmaOrdered By: Nataly Spasic on 09-30-2023 Iron binding capacity [Mass/Vol] 406 ug/dL 255-450 [facility] Iron saturation [Mass Fracti on] in Serum or PlasmaOrdered By: Nataly Toure on 09-30-2023 Iron saturation [Mass fraction] 10.6 % Low 20-50 [facility] Leukocytes [#/volume] correc kee for nucleated erythrocytes in Blood by Automated counOrdered By: Nataly Toure on 09-30-2023 WBC corrected for nucl RBC Auto (Bld) [#/Vol] 8.2 10*3/uL 3.8-11.6 [facility] Leukocytes [#/volume] in Blo od by Automated countOrdered By: Nataly Toure on 09-30-2023 WBC (Bld) [#/Vol] 8.2 10*3/uL Normal 3.8-11.6 [facility] Comment on above: Order Comment: Reaso n for Exam Adenopathy Performed By: #### C USTB #### [facility] [address] [place] [address] [place] Lymphocytes [#/volume] in Bl ood by Automated countOrdered By: Nataly Toure on 09-30-2023 Lymphocytes (Bld) [#/Vol] 2.7 10*3/uL Normal 1.00-4.8 [facility] Comment on above: Order Comment: Reaso n for Exam Adenopathy Performed By: #### C USTB #### [facility] [address] [place] [address] [place] Lymphocytes/100 leukocytes i n Blood by Automated countOrdered By: Nataly Toure on 09-30-2023 Lymphocytes/100 WBC (Bld) 32.4 % Normal . [facility] Comment on above: Order Comment: Reaso n for Exam Adenopathy Performed By: #### C USTB #### [facility] [address] [place] [address] [place] MCH [Entitic mass] by Automa kee countOrdered By: Nataly Toure on 09-30-2023 MCH (RBC) [Entitic mass] 26.3 pg Normal 24.7-34.3 [facility] Comment on above: Order Comment: Reaso n for Exam Adenopathy Performed By: #### C USTB #### [facility] [address] MCHC Auto (RBC) [Mass/Vol]Or dered By: Nataly Toure on 09-30-2023 MCHC (RBC) [Mass/Vol] 33.2 g/dL 32.0-35.0 [facility] MCV [Entitic volume] by Auto mated countOrdered By: Nataly Toure on 09-30-2023 MCV (RBC) [Entitic vol] 79.1 fL Low 80-100 [facility] Comment on above: Order Comment: Reaso n for Exam Adenopathy Performed By: #### C USTB #### [facility] [address] [place] [address] Neutrophils [#/volume] in Bl ood by Automated countOrdered By: Nataly Toure on 09-30-2023 Neutrophils (Bld) [#/Vol] 4.8 10*3/uL Normal 1.8-7.7 [facility] Comment on above: Order Comment: Reaso n for Exam Adenopathy Performed By: #### C USTB #### [facility] [address] [place] [address] No Panel InformationOrdered By: Nataly Toure on 09-30-2023 Estimated GFR (CKD-EPI) > 60.0 mL/Min [facility] Creatinine Clearance (Chem N/A [facility] Nucleated erythrocytes [Pres ence] in Blood by Automated countOrdered By: Nataly Toure on 09-30-2023 Nucleated RBC Auto Ql (Bld) 0.1 /100{WBC} 0-0.5 [facility] Platelet mean volume [Entiti c volume] in Blood by Automated countOrdered By: Nataly Toure on 09-30-2023 Platelet mean volume (Bld) [Entitic vol] 9.2 fL Normal 6.3-10.7 [facility] Comment on above: Order Comment: Reaso n for Exam Adenopathy Performed By: #### C USTB #### [facility] [address] [place] [address] [place] Platelets [#/volume] in Bloo d by Automated countOrdered By: Nataly Toure on 09-30-2023 Platelets (Bld) [#/Vol] 246 10*3/uL Normal 150-450 [facility] Comment on above: Order Comment: Reaso n for Exam Adenopathy Performed By: #### C USTB #### [facility] [address] [place] [address] Potassium [Moles/volume] in Serum or PlasmaOrdered By: Nataly Toure on 09-30-2023 Potassium [Moles/Vol] 3.9 mmol/L Normal 3.5-5.1 [facility] Comment on above: Order Comment: Reaso n for Exam Adenopathy Reason for Exam Iron deficiency Reason for Exam Hypothyroidism, unspecified type Performed By: #### C USTB #### [facility] [address] [place] [address] Protein [Mass/volume] in Ser um or PlasmaOrdered By: Nataly Toure on 09-30-2023 Protein [Mass/Vol] 7.0 g/dL Normal 6.4-8.9 [facility] Comment on above: Order Comment: Reaso n for Exam Adenopathy Reason for Exam Iron deficiency Reason for Exam Hypothyroidism, unspecified type Performed By: #### C USTB #### [facility] [address] [place] [address] Serum globulin measurement b y calculation (mass/volume)Ordered By: Nataly Toure on 09-30-2023 Globulin (S) [Mass/Vol] 2.8 g/dL [facility] Comment on above: Order Comment: Reaso n for Exam Adenopathy Reason for Exam Iron deficiency Reason for Exam Hypothyroidism, unspecified type Performed By: #### C USTB #### [facility] [address] [place] [address] Serum or plasma albumin/glob ulin mass ratioOrdered By: Nataly oTure on 09-30-2023 Albumin/Globulin [Mass ratio] 1.5 {ratio} [facility] Comment on above: Order Comment: Reaso n for Exam Adenopathy Reason for Exam Iron deficiency Reason for Exam Hypothyroidism, unspecified type Performed By: #### C USTB #### [address] Serum or plasma anion gap de terminationOrdered By: Nataly Toure on 09-30-2023 Anion gap [Moles/Vol] 11.0 mmol/L Normal 6.0-15.0 [facility] Comment on above: Order Comment: Reaso n for Exam Adenopathy Reason for Exam Iron deficiency Reason for Exam Hypothyroidism, unspecified type Performed By: #### C USTB #### [facility] [address] [place] [address] Sodium [Moles/volume] in Ser um or PlasmaOrdered By: Nataly Toure on 09-30-2023 Sodium [Moles/Vol] 140 mmol/L Normal 136-145 [facility] Comment on above: Order Comment: Reaso n for Exam Adenopathy Reason for Exam Iron deficiency Reason for Exam Hypothyroidism, unspecified type Performed By: #### C USTB #### [facility] [address] [place] [address] Thyroid Stim Hormone w/Rflxo n 09-30-2023 Thyroid Stim Hormone w/Rflx 4.99 u[iU]/mL Normal 0.45-5.33 [facility] Comment on above: Order Comment: Reaso n for Exam Adenopathy Reason for Exam Iron deficiency Reason for Exam Hypothyroidism, unspecified type Result Comment: PERF ORMED BY: [place] [address] PATHOLOGIST ASSISTANT LIBRARIAN ALLA OROZCO M.D. Performed By: #### G TT3 #### [address] Thyrotropin [Units/volume] i n Serum or PlasmaOrdered By: Nataly Toure on 09-30-2023 TSH Qn 4.99 m[IU]/L 0.45-5.33 [facility] Transferrin [Mass/volume] in Serum or PlasmaOrdered By: Nataly Toure on 09-30-2023 Transferrin [Mass/Vol] 290 mg/dL Normal 203-362 [facility] Comment on above: Order Comment: Reaso n for Exam Adenopathy Reason for Exam Iron deficiency Reason for Exam Hypothyroidism, unspecified type Performed By: #### G TT3 #### [facility] [address] [place] [address] Urea nitrogen [Mass/volume] in Serum or PlasmaOrdered By: Nataly Toure on 09-30-2023 Urea nitrogen [Mass/Vol] 23 mg/dL Normal 7-25 [facility] Comment on above: Order Comment: Reaso n for Exam Adenopathy Reason for Exam Iron deficiency Reason for Exam Hypothyroidism, unspecified type Performed By: #### C USTB #### [facility] [address] [place] [address] CT lumbar spine wo conon CT lumbar spine wo con [facility] Main [place] [address] [place] [address] CT Scan Report Signed Patient: Rosette Alba MR#: [id number] : 2000 Acct:[id number] Age/Sex: 23 / F ADM Date: 09/26/23 Loc: ER Room: Type: [facility] ER Attending Dr: Copies to: [...] Deborah Vazquez M.D.09/27/2023 8:13 AM Dictation Location: [place] [address] Transcribed By: [facility] 09/27/23812 Dictated By: Deborah Vazquez MD 09/27/23803 Signed By: 09/27/23812 Normal [facility] Bacteria [Presence] in Urine by AutomatedOrdered By: Devon Leon on 09-26-2023 Bacteria Auto Ql (U) Rare [HPF] None Seen [facility] Bilirubin Test strip Ql (U)O rdered By: Devon Leon on 09-26-2023 Bilirubin Ql (U) Negative Negative [facility] Color of Urine by AutoOrdere d By: Devon Leon on 09-26-2023 Color (U) Light-yellow Normal Yellow [facility] Comment on above: Order Comment: Name Collection Type:: Clean-Voided Midstream Performed By: #### A DDONUAPLUS, CUU #### [facility] [address] [place] [address] [place] Dipstick and Microscopicon 0 09-26-2023 Bacteria,Urine Rare Normal None Seen [facility] Comment on above: Order Comment: Name Collection Type:: Clean-Voided Midstream Performed By: #### A DDONUAPLUS, CUU #### [place] [address] [place] Bilirubin,Urine Negative Normal Negative [facility] Comment on above: Order Comment: Name Collection Type:: Clean-Voided Midstream Performed By: #### A DDONUAPLUS, CUU #### [address] Glucose Ql (U) Normal Normal Normal [facility] Comment on above: Order Comment: Name Collection Type:: Clean-Voided Midstream Performed By: #### A DDONUAPLUS, CUU #### [place] [address] [place] Hyaline Casts,Urine None Normal 0-8 [facility] Comment on above: Order Comment: Name Collection Type:: Clean-Voided Midstream Performed By: #### A DDONUAPLUS, CUU #### [place] [address] [place] Mucus,Urine 2+ Critically abnormal [facility] Comment on above: Order Comment: Name Collection Type:: Clean-Voided Midstream Performed By: #### A DDONUAPLUS, CUU #### [place] [address] [place] Nitrite,Urine Negative Normal Negative [facility] Comment on above: Order Comment: Name Collection Type:: Clean-Voided Midstream Performed By: #### A DDONUAPLUS, CUU #### [place] [address] [place] Occult Blood,Urine 2+ High Negative [facility] Comment on above: Order Comment: Name Collection Type:: Clean-Voided Midstream Result Comment: PERF ORMED BY: [place] [address] PATHOLOGIST ASSISTANT LIBRARIAN ALLA OROZCO M.D. Performed By: #### A DDONUAPLUS, CUU #### [place] [address] [place] Protein,Urine Trace High Negative [facility] Comment on above: Order Comment: Name Collection Type:: Clean-Voided Midstream Performed By: #### A DDONUAPLUS, CUU #### [place] [address] [place] RBC,Urine 3-4 Normal 0-4 [facility] Comment on above: Order Comment: Name Collection Type:: Clean-Voided Midstream Performed By: #### A DDONUAPLUS, CUU #### [address] Specificy [place],Urine 1.030 Normal 1.001-1.03 0 [facility] Comment on above: Order Comment: Name Collection Type:: Clean-Voided Midstream Performed By: #### A DDONUAPLUS, CUU #### [place] [address] [place] Sperm,Urine 5-9 High 0-2 [facility] Comment on above: Order Comment: Name Collection Type:: Clean-Voided Midstream Result Comment: PERF ORMED BY: [place] [address] PATHOLOGIST ASSISTANT LIBRARIAN ALLA OROZCO M.D. Performed By: #### A DDONUAPLUS, CUU #### [address] Squamous Epithelial Cell,Urine 5-9 High 0-2 [facility] Comment on above: Order Comment: Name Collection Type:: Clean-Voided Midstream Performed By: #### A DDONUAPLUS, CUU #### [address] Urobilinogen,Urine Normal Normal Normal [facility] Comment on above: Order Comment: Name Collection Type:: Clean-Voided Midstream Performed By: #### A DDONUAPLUS, CUU #### [place] [address] [place] WBC,Urine 5-9 High 0-4 [facility] Comment on above: Order Comment: Name Collection Type:: Clean-Voided Midstream Performed By: #### A DDONUAPLUS, CUU #### [address] Epithelial cells.squamous [# /area] in Urine sediment by Automated countOrdered By: Devon Leon on 09-26-2023 Epithelial cells.squamous Auto (Urine sed) [#/Area] 5-9 [HPF] High 0-2 [facility] Erythrocytes [#/area] in Uri ne sediment by Automated countOrdered By: Devon Leon on 09-26-2023 RBC Auto (Urine sed) [#/Area] 3-4 [HPF] 0-4 [facility] Glucose [Mass/volume] in Uri ne by Test stripOrdered By: Devon Leon on 09-26-2023 Glucose Test strip (U) [Mass/Vol] Normal mg/dL Normal [facility] Hemoglobin Test strip Ql (U) Ordered By: Devon Leon on 09-26-2023 Hemoglobin Ql (U) 2+ High Negative [facility] Hyaline casts [#/area] in Ur ine sediment by Automated countOrdered By: Devon Leon on 09-26-2023 Hyaline casts Auto (Urine sed) [#/Area] None [LPF] 0-8 [facility] Ketones [Presence] in Urine by Test stripOrdered By: Devon Leon on 09-26-2023 Ketones Ql (U) Negative Normal Negative [facility] Comment on above: Order Comment: Name Collection Type:: Clean-Voided Midstream Performed By: #### A DDONUAPLUS, CUU #### [facility] [address] [place] [address] [place] Leukocyte esterase [Presence ] in Urine by Test stripOrdered By: Devon Leon on 09-26-2023 Leukocyte esterase Test strip Ql (U) 2+ High Negative [facility] Comment on above: Order Comment: Name Collection Type:: Clean-Voided Midstream Performed By: #### A DDONUAPLUS, CUU #### [facility] [address] [place] [address] [place] Leukocytes [#/area] in Urine sediment by Automated countOrdered By: Devon Leon on 09-26-2023 WBC Auto (Urine sed) [#/Area] 5-9 [HPF] High 0-4 [facility] Mucus [Presence] in Urine by AutomatedOrdered By: Devon Leon on 09-26-2023 Mucus Auto Ql (U) 2+ [LPF] Abnormal [facility] Nitrite Test strip Ql (U)Ord ered By: Devon Leon on 09-26-2023 Nitrite Ql (U) Negative Negative [facility] Protein Test strip (U) [Mass /Vol]Ordered By: Devon Leon on 09-26-2023 Protein (U) [Mass/Vol] Trace mg/dL High Negative [facility] Specific gravity Test strip (U) [Rel density]Ordered By: Devon Leon on 09-26-2023 Specific gravity (U) [Rel density] 1.030 1.001-1.03 0 [facility] [place] [#/area] in Urin e sediment by Automated countOrdered By: Devon Leon on 09-26-2023 [place] Auto (Urine sed) [#/Area] 5-9 [HPF] High 0-2 [facility] Urine Cultureon 09-26-2023 Bacteria identified Cx Nom (U) ORGANISM: Strep agalactiae - (group b) (O:STRAGA) [place] Count 75,000 PERFORMED BY: [place] [address] PATHOLOGIST ASSISTANT LIBRARIAN ALLA OROZCO M.D. Normal [facility] Comment on above: Performed By: #### A JOSE CUU #### [facility] [address] [place] [address] Urine appearanceOrdered By: Devon Leon on 09-26-2023 Appearance (U) Clear Normal Clear [facility] Comment on above: Order Comment: Name Collection Type:: Clean-Voided Midstream Performed By: #### A JOSE, CUU #### [facility] [address] [place] [address] Urine culture routineOrdered By: Devon Leon on 09-26-2023 Bacteria identified Cx Nom (U) Strep agalactiae - (group b) Abnormal [facility] Urobilinogen Test strip (U) [Mass/Vol]Ordered By: Devon Leon on 09-26-2023 Urobilinogen (U) [Mass/Vol] Normal mg/dL Normal [facility] pH of Urine by Test stripOrd ered By: Devon Leon on 09-26-2023 pH (U) 6.0 [pH] Normal 5.0-9.0 [facility] Comment on above: Order Comment: Name Collection Type:: Clean-Voided Midstream Performed By: #### A JOSE CUU #### [facility] [address] [place] [address] [place] Alanine aminotransferase [En zymatic activity/volume] in Serum or PlasmaOrdered By: Nataly Toure on 08-03-2023 ALT [Catalytic activity/Vol] 14 U/L Normal 7-52 [facility] Comment on above: Order Comment: Reaso n for Exam Hypothyroidism, unspecified type;High blood triglycerides Reason for Exam Iron deficiency Reason for Exam High blood triglycerides Reason for Exam Hypothyroidism, unspecified type Performed By: #### G TT3 #### [place] [address] [place] Albumin [Mass/volume] in Ser um or Plasma by Bromocresol green (BCG) dye binding methoOrdered By: Nataly Toure on 08-03-2023 Albumin BCG dye [Mass/Vol] 4.4 g/dL 3.5-5.7 [facility] Alkaline phosphatase [Enzyma tic activity/volume] in Serum or PlasmaOrdered By: Nataly Toure on 08-03-2023 ALP [Catalytic activity/Vol] 85 U/L Normal 34-104 [facility] Comment on above: Order Comment: Reaso n for Exam Hypothyroidism, unspecified type;High blood triglycerides Reason for Exam Iron deficiency Reason for Exam High blood triglycerides Reason for Exam Hypothyroidism, unspecified type Performed By: #### G TT3 #### [place] [address] [place] Aspartate aminotransferase [ Enzymatic activity/volume] in Serum or PlasmaOrdered By: Nataly Toure on 08-03-2023 AST [Catalytic activity/Vol] 13 U/L Normal 13-39 [facility] Comment on above: Order Comment: Reaso n for Exam Hypothyroidism, unspecified type;High blood triglycerides Reason for Exam Iron deficiency Reason for Exam High blood triglycerides Reason for Exam Hypothyroidism, unspecified type Performed By: #### G TT3 #### [place] [address] [place] Automated basophil %Ordered By: Nataly Toure on 08-03-2023 Basophils/100 WBC (Bld) 0.4 % Normal . [facility] Comment on above: Order Comment: Reaso n for Exam Iron deficiency Performed By: #### G TT3 #### [address] Automated basophil countOrde red By: Nataly Toure on 08-03-2023 Basophils (Bld) [#/Vol] 0.0 10*3/uL Normal 0.0-0.2 [facility] Comment on above: Order Comment: Reaso n for Exam Iron deficiency Result Comment: PERF ORMED BY: [place] [address] PATHOLOGIST ASSISTANT LIBRARIAN ALLA OROZCO M.D. Performed By: #### G TT3 #### [address] Automated blood monocyte cou ntOrdered By: Nataly Toure on 08-03-2023 Monocytes (Bld) [#/Vol] 0.4 10*3/uL Normal 0.0-0.8 [facility] Comment on above: Order Comment: Reaso n for Exam Iron deficiency Performed By: #### G TT3 #### [address] Automated eosinophil %Ordere d By: Nataly Toure on 08-03-2023 Eosinophils/100 WBC (Bld) 0.5 % Normal . [facility] Comment on above: Order Comment: Reaso n for Exam Iron deficiency Performed By: #### G TT3 #### [address] Automated eosinophil countOr dered By: Nataly Toure on 08-03-2023 Eosinophils (Bld) [#/Vol] 0.0 10*3/uL Normal 0.0-0.45 [facility] Comment on above: Order Comment: Reaso n for Exam Iron deficiency Performed By: #### G TT3 #### [address] Automated monocyte %Ordered By: Nataly Toure on 08-03-2023 Monocytes/100 WBC (Bld) 5.4 % Normal . [facility] Comment on above: Order Comment: Reaso n for Exam Iron deficiency Performed By: #### G TT3 #### [facility] [address] Automated neutrophil %Ordere d By: Nataly Toure on 08-03-2023 Neutrophils/100 WBC (Bld) 70.9 % Normal . [facility] Comment on above: Order Comment: Reaso n for Exam Iron deficiency Performed By: #### G TT3 #### [facility] [address] Bilirubin.total [Mass/volume ] in Serum or PlasmaOrdered By: Nataly Toure on 08-03-2023 Bilirubin [Mass/Vol] 0.5 mg/dL Normal 0.3-1.0 [facility] Comment on above: Order Comment: Reaso n for Exam Hypothyroidism, unspecified type;High blood triglycerides Reason for Exam Iron deficiency Reason for Exam High blood triglycerides Reason for Exam Hypothyroidism, unspecified type Performed By: #### G TT3 #### [facility] [address] [place] [address] Calcium [Mass/volume] in Ser um or PlasmaOrdered By: Nataly Toure on 08-03-2023 Calcium [Mass/Vol] 9.5 mg/dL Normal 8.6-10.3 [facility] Comment on above: Order Comment: Reaso n for Exam Hypothyroidism, unspecified type;High blood triglycerides Reason for Exam Iron deficiency Reason for Exam High blood triglycerides Reason for Exam Hypothyroidism, unspecified type Performed By: #### G TT3 #### [facility] [address] [place] [address] [place] Carbon dioxide, total [Moles /volume] in Serum or PlasmaOrdered By: Nataly Toure on 08-03-2023 CO2 [Moles/Vol] 27.2 mmol/L Normal 21.0-31.0 [facility] Comment on above: Order Comment: Reaso n for Exam Hypothyroidism, unspecified type;High blood triglycerides Reason for Exam Iron deficiency Reason for Exam High blood triglycerides Reason for Exam Hypothyroidism, unspecified type Performed By: #### G TT3 #### [facility] [address] [place], [place] [id number] [place] Chloride [Moles/volume] in S rosa or PlasmaOrdered By: Nataly Toure on 08-03-2023 Chloride [Moles/Vol] 105 mmol/L Normal 98-107 [facility] Comment on above: Order Comment: Reaso n for Exam Hypothyroidism, unspecified type;High blood triglycerides Reason for Exam Iron deficiency Reason for Exam High blood triglycerides Reason for Exam Hypothyroidism, unspecified type Performed By: #### G TT3 #### [facility] [address] Cholesterol [Mass/volume] in Serum or PlasmaOrdered By: Nataly Toure on 08-03-2023 Cholesterol [Mass/Vol] 159 mg/dL Normal 140-200 [facility] Comment on above: Chol less than [...] risk Performed By: #### G TT3 #### [facility] [address] Cholesterol in LDL Calc [Mas s/Vol]Ordered By: Nataly Toure on 08-03-2023 Cholesterol in LDL [Mass/Vol] 82 mg/dL 0-100 [facility] Comment on above: LDL ATP III CLASSIFI CATIONLDL less than 100 mg/dL OptimalLDL 100-129 mg/dL Near or above optimalLDL 130-159 mg/dL Borderline highLDL 160-189 mg/dL HighLDL greater than 189 mg/dL Very high Cholesterol in VLDL Calc [Ma ss/Vol]Ordered By: Nataly Toure on 08-03-2023 Cholesterol in VLDL [Mass/Vol] 28 mg/dL [facility] Complete Blood Count Auto Di ffon 08-03-2023 Mean Corpuscular HGB Conc 33.1 g/dL Normal 32.0-35.0 [facility] Comment on above: Order Comment: Reaso n for Exam Iron deficiency Performed By: #### G TT3 #### [facility] [address] [place] [address] NRBC% 0.2 /100{WBC} Normal 0-0.5 [facility] Comment on above: Order Comment: Reaso n for Exam Iron deficiency Performed By: #### G TT3 #### [address] Comprehensive Metabolic Pane ramakrishna 08-03-2023 Albumin [Mass/Vol] 4.4 g/dL Normal 3.5-5.7 [facility] Comment on above: Order Comment: Reaso n for Exam Hypothyroidism, unspecified type;High blood triglycerides Reason for Exam Iron deficiency Reason for Exam High blood triglycerides Reason for Exam Hypothyroidism, unspecified type Performed By: #### G TT3 #### [address] GFR/1.73 sq M.predicted MDRD (S/P/Bld) [Vol rate/Area] mL/min/{1.73_m2} Normal [facility] Comment on above: Order Comment: Reaso n for Exam Hypothyroidism, unspecified type;High blood triglycerides Reason for Exam Iron deficiency Reason for Exam High blood triglycerides Reason for Exam Hypothyroidism, unspecified type Performed By: #### G TT3 #### [address] Creatinine [Mass/volume] in Serum or PlasmaOrdered By: Nataly Toure on 08-03-2023 Creatinine [Mass/Vol] 0.78 mg/dL Normal 0.60-1.20 [facility] Comment on above: Order Comment: Reaso n for Exam Hypothyroidism, unspecified type;High blood triglycerides Reason for Exam Iron deficiency Reason for Exam High blood triglycerides Reason for Exam Hypothyroidism, unspecified type Performed By: #### G TT3 #### [facility] [address] [place] [address] Erythrocyte distribution wid th [Ratio] by Automated countOrdered By: Nataly Toure on 08-03-2023 Erythrocyte distribution width (RBC) [Ratio] 14.3 % Normal 11.9-15.3 [facility] Comment on above: Order Comment: Reaso n for Exam Iron deficiency Performed By: #### G TT3 #### [facility] [address] Erythrocytes [#/volume] in B lood by Automated countOrdered By: Nataly Toure on 08-03-2023 RBC (Bld) [#/Vol] 4.72 10*6/uL Normal 3.60-5.00 [facility] Comment on above: Order Comment: Reaso n for Exam Iron deficiency Performed By: #### G TT3 #### [facility] [address] [place] [address] [place] Glucose [Mass/volume] in Ser um or PlasmaOrdered By: Nataly Toure on 08-03-2023 Glucose [Mass/Vol] 82 mg/dL Normal 70-100 [facility] Comment on above: ADA recommended [...] for Exam Hypothyroidism, unspecified type Result Comment: [place] om Glucose Reference Range is dependent on time and content of last meal. Glucose of more than 200 mg/dL in a nonstressed, ambulatory subject supports the diagnosis of Diabetes Mellitus. ADA recommended reference range Performed By: #### G TT3 #### [place] [address] [place] Hematocrit [Volume Fraction] of Blood by Automated countOrdered By: Nataly Toure on 08-03-2023 Hematocrit (Bld) [Volume fraction] 36.8 % Normal 34.0-46.4 [facility] Comment on above: Order Comment: Reaso n for Exam Iron deficiency Performed By: #### G TT3 #### [facility] [address] [place] [address] [place] Hemoglobin [Mass/volume] in BloodOrdered By: Nataly Toure on 08-03-2023 Hemoglobin (Bld) [Mass/Vol] 12.2 g/dL Normal 11.8-15.4 [facility] Comment on above: Order Comment: Reaso n for Exam Iron deficiency Performed By: #### G TT3 #### [address] Insulinon 08-03-2023 Insulin 14.1 u[iU]/mL Normal 2.6-24.9 [facility] Comment on above: Order Comment: Name Collection Type:: Clean-Voided Midstream Result Comment: Perf ormed at: - [facility] [address] [id number] [employer] Sharpshooter: Sam Lopez PhD, Phone: [phone] PERFORMED BY: [place] [address] PATHOLOGIST ASSISTANT LIBRARIAN ALLA OROZCO M.D. Performed By: #### A DDONUALETICIA, [facility] #### [address] Iron [Mass/volume] in Serum or PlasmaOrdered By: Nataly Toure on 08-03-2023 Iron [Mass/Vol] 43 ug/dL Low 50-212 [facility] Comment on above: Order Comment: Reaso n for Exam Hypothyroidism, unspecified type;High blood triglycerides Reason for Exam Iron deficiency Reason for Exam High blood triglycerides Reason for Exam Hypothyroidism, unspecified type Performed By: #### G TT3 #### [address] Iron and TIBC Profileon 07-16 % Iron Saturation 11.3 % Low 20-50 [facility] Comment on above: Order Comment: Reaso n for Exam Hypothyroidism, unspecified type;High blood triglycerides Reason for Exam Iron deficiency Reason for Exam High blood triglycerides Reason for Exam Hypothyroidism, unspecified type Performed By: #### G TT3 #### [address] Total Iron Binding Capacity 382 ug/dL Normal 255-450 [facility] Comment on above: Order Comment: Reaso n for Exam Hypothyroidism, unspecified type;High blood triglycerides Reason for Exam Iron deficiency Reason for Exam High blood triglycerides Reason for Exam Hypothyroidism, unspecified type Performed By: #### G TT3 #### [address] [place] [address] [facility] Iron binding capacity [Mass/ volume] in Serum or PlasmaOrdered By: Nataly Toure on 08-03-2023 Iron binding capacity [Mass/Vol] 382 ug/dL 255-450 [facility] Iron saturation [Mass Fracti on] in Serum or PlasmaOrdered By: Nataly Toure on 08-03-2023 Iron saturation [Mass fraction] 11.3 % Low 20-50 [facility] Leukocytes [#/volume] correc kee for nucleated erythrocytes in Blood by Automated counOrdered By: Nataly Toure on 08-03-2023 WBC corrected for nucl RBC Auto (Bld) [#/Vol] 7.2 10*3/uL 3.8-11.6 [facility] Leukocytes [#/volume] in Blo od by Automated countOrdered By: Nataly Toure on 08-03-2023 WBC (Bld) [#/Vol] 7.2 10*3/uL Normal 3.8-11.6 [facility] Comment on above: Order Comment: Reaso n for Exam Iron deficiency Performed By: #### G TT3 #### [facility] [address] Lipid Panelon 08-03-2023 LDL Cholesterol,Calculated 82 [...] high Performed By: #### G TT3 #### [facility] [address] Triglyceride w/Reflex 140 mg/dL Normal 0-149 [...] method. Performed By: #### G TT3 #### [address] VLDL CHOLESTEROL 28 mg/dL Normal [facility] Comment on above: Order Comment: Reaso n for Exam Hypothyroidism, unspecified type;High blood triglycerides Reason for Exam Iron deficiency Reason for Exam High blood triglycerides Reason for Exam Hypothyroidism, unspecified type Performed By: #### G TT3 #### [address] Lymphocytes [#/volume] in Bl ood by Automated countOrdered By: Nataly Toure on 08-03-2023 Lymphocytes (Bld) [#/Vol] 1.6 10*3/uL Normal 1.00-4.8 [facility] Comment on above: Order Comment: Reaso n for Exam Iron deficiency Performed By: #### G TT3 #### [place] [address] [place] Lymphocytes/100 leukocytes i n Blood by Automated countOrdered By: Nataly Toure on 08-03-2023 Lymphocytes/100 WBC (Bld) 22.8 % Normal . [facility] Comment on above: Order Comment: Reaso n for Exam Iron deficiency Performed By: #### G TT3 #### [place] [address] [place] MCH [Entitic mass] by Automa kee countOrdered By: Nataly Toure on 08-03-2023 MCH (RBC) [Entitic mass] 25.8 pg Normal 24.7-34.3 [facility] Comment on above: Order Comment: Reaso n for Exam Iron deficiency Performed By: #### G TT3 #### [place] [address] [place] MCHC Auto (RBC) [Mass/Vol]Or dered By: Nataly Toure on 08-03-2023 MCHC (RBC) [Mass/Vol] 33.1 g/dL 32.0-35.0 [facility] MCV [Entitic volume] by Auto mated countOrdered By: Nataly Toure on 08-03-2023 MCV (RBC) [Entitic vol] 78.0 fL Low 80-100 [facility] Comment on above: Order Comment: Reaso n for Exam Iron deficiency Performed By: #### G TT3 #### [facility] [address] [place] [address] Neutrophils [#/volume] in Bl ood by Automated countOrdered By: Nataly Toure on 08-03-2023 Neutrophils (Bld) [#/Vol] 5.1 10*3/uL Normal 1.8-7.7 [facility] Comment on above: Order Comment: Reaso n for Exam Iron deficiency Performed By: #### G TT3 #### [facility] [address] [place] [address] No Panel InformationOrdered By: Nataly Toure on 08-03-2023 Estimated GFR (CKD-EPI) > 60.0 mL/Min [facility] [facility] Creatinine Clearance (Chem N/A [facility] Nucleated erythrocytes [Pres ence] in Blood by Automated countOrdered By: Nataly Toure on 08-03-2023 Nucleated RBC Auto Ql (Bld) 0.2 /100{WBC} 0-0.5 [facility] Platelet mean volume [Entiti c volume] in Blood by Automated countOrdered By: Nataly Toure on 08-03-2023 Platelet mean volume (Bld) [Entitic vol] 9.2 fL Normal 6.3-10.7 [facility] Comment on above: Order Comment: Reaso n for Exam Iron deficiency Performed By: #### G TT3 #### [facility] [address] [place] [address] Platelets [#/volume] in Bloo d by Automated countOrdered By: Nataly Toure on 08-03-2023 Platelets (Bld) [#/Vol] 260 10*3/uL Normal 150-450 [facility] Comment on above: Order Comment: Reaso n for Exam Iron deficiency Performed By: #### G TT3 #### [facility] [address] [id number] [place] Potassium [Moles/volume] in Serum or PlasmaOrdered By: Nataly Toure on 08-03-2023 Potassium [Moles/Vol] 3.6 mmol/L Normal 3.5-5.1 [facility] Comment on above: Order Comment: Reaso n for Exam Hypothyroidism, unspecified type;High blood triglycerides Reason for Exam Iron deficiency Reason for Exam High blood triglycerides Reason for Exam Hypothyroidism, unspecified type Performed By: #### G TT3 #### [facility] [address] Protein [Mass/volume] in Ser um or PlasmaOrdered By: Nataly Toure on 08-03-2023 Protein [Mass/Vol] 7.2 g/dL Normal 6.4-8.9 [facility] Comment on above: Order Comment: Reaso n for Exam Hypothyroidism, unspecified type;High blood triglycerides Reason for Exam Iron deficiency Reason for Exam High blood triglycerides Reason for Exam Hypothyroidism, unspecified type Performed By: #### G TT3 #### [facility] [address] Serum globulin measurement b y calculation (mass/volume)Ordered By: Nataly Toure on 08-03-2023 Globulin (S) [Mass/Vol] 2.8 g/dL [facility] Comment on above: Order Comment: Reaso n for Exam Hypothyroidism, unspecified type;High blood triglycerides Reason for Exam Iron deficiency Reason for Exam High blood triglycerides Reason for Exam Hypothyroidism, unspecified type Performed By: #### G TT3 #### [facility] [address] [id number] [place] Serum or plasma albumin/glob ulin mass ratioOrdered By: Nataly Toure on 08-03-2023 Albumin/Globulin [Mass ratio] 1.6 {ratio} [facility] Comment on above: Order Comment: Reaso n for Exam Hypothyroidism, unspecified type;High blood triglycerides Reason for Exam Iron deficiency Reason for Exam High blood triglycerides Reason for Exam Hypothyroidism, unspecified type Performed By: #### G TT3 #### [facility] [address] Serum or plasma anion gap de terminationOrdered By: Nataly Toure on 08-03-2023 Anion gap [Moles/Vol] 11.4 mmol/L Normal 6.0-15.0 [facility] Comment on above: Order Comment: Reaso n for Exam Hypothyroidism, unspecified type;High blood triglycerides Reason for Exam Iron deficiency Reason for Exam High blood triglycerides Reason for Exam Hypothyroidism, unspecified type Performed By: #### G TT3 #### [facility] [address] Serum or plasma high density lipoprotein (HDL) cholesterol measurementOrdered By: Nataly Toure on 08-03-2023 Cholesterol in HDL [Mass/Vol] 49 mg/dL Normal 23-92 [facility] Comment on above: HDL CHOL [...] HIGH Performed By: #### G TT3 #### [facility] [address] [place] [address] Serum or plasma insulin nikita urement (units/volume)Ordered By: Nataly Toure on 08-03-2023 Insulin Qn 14.1 u[iU]/mL 2.6-24.9 [facility] Comment on above: Performed at: [address] Director: Sam Lopez PhD, Phone: [phone] Serum or plasma total choles terol/high density lipoprotein (HDL) cholesterol mass ratOrdered By: Nataly Toure on 08-03-2023 Cholesterol.total/Chol esterol in HDL [Mass ratio] 3.2 {ratio} Normal <5.0 [facility] Comment on above: Order Comment: Reaso n for Exam Hypothyroidism, unspecified type;High blood triglycerides Reason for Exam Iron deficiency Reason for Exam High blood triglycerides Reason for Exam Hypothyroidism, unspecified type Performed By: #### G TT3 #### [facility] [address] [place] [address] [place] Sodium [Moles/volume] in Ser um or PlasmaOrdered By: Nataly Toure on 08-03-2023 Sodium [Moles/Vol] 140 mmol/L Normal 136-145 [facility] Comment on above: Order Comment: Reaso n for Exam Hypothyroidism, unspecified type;High blood triglycerides Reason for Exam Iron deficiency Reason for Exam High blood triglycerides Reason for Exam Hypothyroidism, unspecified type Performed By: #### G TT3 #### [facility] [address] [place] [address] Thyroid Stim Hormone w/Rflxo n 08-03-2023 Thyroid Stim Hormone w/Rflx 3.20 u[iU]/mL Normal 0.45-5.33 [facility] Comment on above: Order Comment: Reaso n for Exam Hypothyroidism, unspecified type;High blood triglycerides Reason for Exam Iron deficiency Reason for Exam High blood triglycerides Reason for Exam Hypothyroidism, unspecified type Result Comment: PERF ORMED BY: [place] [address] PATHOLOGIST ASSISTANT LIBRARIAN ALLA OROZCO M.D. Performed By: #### G TT3 #### [address] Thyrotropin [Units/volume] i n Serum or PlasmaOrdered By: Nataly Toure on 08-03-2023 TSH Qn 3.20 m[IU]/L 0.45-5.33 [facility] Transferrin [Mass/volume] in Serum or PlasmaOrdered By: Nataly Toure on 08-03-2023 Transferrin [Mass/Vol] 273 mg/dL Normal 203-362 [facility] Comment on above: Order Comment: Reaso n for Exam Hypothyroidism, unspecified type;High blood triglycerides Reason for Exam Iron deficiency Reason for Exam High blood triglycerides Reason for Exam Hypothyroidism, unspecified type Performed By: #### G TT3 #### [facility] [address] [place] [address] [place] Triglyceride [Mass/volume] i n Serum or PlasmaOrdered By: Nataly Toure on 08-03-2023 Triglyceride [Mass/Vol] 140 mg/dL 0-149 [facility] Comment on above: TRIG ATP III CLASSIF ICATIONTRIG less than 150 mg/dL NormalTRIG 150-199 mg/dL Borderline highTRIG 200-500 mg/dL High TRIG greater than 500 mg/dL Very highStandard traceable to the Center for Disease Conrtrol and Prevention (CDC) test method. Urea nitrogen [Mass/volume] in Serum or PlasmaOrdered By: Nataly Toure on 08-03-2023 Urea nitrogen [Mass/Vol] 10 mg/dL Normal 7-25 [facility] Comment on above: Order Comment: Reaso n for Exam Hypothyroidism, unspecified type;High blood triglycerides Reason for Exam Iron deficiency Reason for Exam High blood triglycerides Reason for Exam Hypothyroidism, unspecified type Performed By: #### G TT3 #### [address] Complete Blood Count Auto Di ffon 04-15-2023 Basophils (Bld) [#/Vol] 0.0 10*3/uL Normal 0.0-0.2 [facility] Comment on above: Order Comment: Reaso n for Exam Iron deficiency Result Comment: PERF ORMED BY: [place] [address] PATHOLOGIST ASSISTANT LIBRARIAN ALLA OROZCO M.D. Performed By: #### C BC #### [address] #### RPR W RFX #### [facility] , Basophils/100 WBC (Bld) 0.5 % Normal . [facility] Comment on above: Order Comment: Reaso n for Exam Iron deficiency Performed By: #### C BC #### [facility] [address] [place] [address] [place] #### RPR W RFX #### [facility] , Eosinophils (Bld) [#/Vol] 0.2 10*3/uL Normal 0.0-0.45 [facility] Comment on above: Order Comment: Reaso n for Exam Iron deficiency Performed By: #### C BC #### [address] #### RPR W RFX #### [facility] , Eosinophils/100 WBC (Bld) 3.8 % Normal . [facility] Comment on above: Order Comment: Reaso n for Exam Iron deficiency Performed By: #### C BC #### [facility] [address] [place] [address] [place] #### RPR W RFX #### [facility] , Erythrocyte distribution width (RBC) [Ratio] 16.9 % High 11.9-15.3 [facility] Comment on above: Order Comment: Reaso n for Exam Iron deficiency Performed By: #### C BC #### [address] #### RPR W RFX #### [facility] , Hematocrit (Bld) [Volume fraction] 36.2 % Normal 34.0-46.4 [facility] Comment on above: Order Comment: Reaso n for Exam Iron deficiency Performed By: #### C BC #### [address] #### RPR W RFX #### [facility] , Hemoglobin (Bld) [Mass/Vol] 12.0 g/dL Normal 11.8-15.4 [facility] Comment on above: Order Comment: Reaso n for Exam Iron deficiency Performed By: #### C BC #### [place] [address] [place] #### RPR W RFX #### [facility] , Lymphocytes (Bld) [#/Vol] 1.6 10*3/uL Normal 1.00-4.8 [facility] Comment on above: Order Comment: Reaso n for Exam Iron deficiency Performed By: #### C BC #### [place] [address] [place] #### RPR W RFX #### [facility] , Lymphocytes/100 WBC (Bld) 28.1 % Normal . [facility] Comment on above: Order Comment: Reaso n for Exam Iron deficiency Performed By: #### C BC #### [address] #### RPR W RFX #### [facility] , MCH (RBC) [Entitic mass] 25.7 pg Normal 24.7-34.3 [facility] Comment on above: Order Comment: Reaso n for Exam Iron deficiency Performed By: #### C BC #### [facility] [address] [place] [address] #### RPR W RFX #### [facility] , MCV (RBC) [Entitic vol] 77.7 fL Low 80-100 [facility] Comment on above: Order Comment: Reaso n for Exam Iron deficiency Performed By: #### C BC #### [address] #### RPR W RFX #### [facility] , Mean Corpuscular HGB Conc 33.1 g/dL Normal 32.0-35.0 [facility] Comment on above: Order Comment: Reaso n for Exam Iron deficiency Performed By: #### C BC #### [facility] [address] [place] [address] [place] #### RPR W RFX #### [facility] , Monocytes (Bld) [#/Vol] 0.5 10*3/uL Normal 0.0-0.8 [facility] Comment on above: Order Comment: Reaso n for Exam Iron deficiency Performed By: #### C BC #### [facility] [address] [place] [address] [place] #### RPR W RFX #### [facility] , Monocytes/100 WBC (Bld) 9.0 % Normal . [facility] Comment on above: Order Comment: Reaso n for Exam Iron deficiency Performed By: #### C BC #### [facility] [address] [place] [address] [place] #### RPR W RFX #### [facility] , Neutrophils (Bld) [#/Vol] 3.3 10*3/uL Normal 1.8-7.7 [facility] Comment on above: Order Comment: Reaso n for Exam Iron deficiency Performed By: #### C BC #### [facility] [address] [place] [address] #### RPR W RFX #### [facility] , Neutrophils/100 WBC (Bld) 58.6 % Normal . [facility] Comment on above: Order Comment: Reaso n for Exam Iron deficiency Performed By: #### C BC #### [address] #### RPR W RFX #### [facility] , NRBC% 0.1 /100{WBC} Normal 0-0.5 [facility] Comment on above: Order Comment: Reaso n for Exam Iron deficiency Performed By: #### C BC #### [facility] [address] [place] [address] #### RPR W RFX #### [facility] , Platelet mean volume (Bld) [Entitic vol] 9.1 fL Normal 6.3-10.7 [facility] Comment on above: Order Comment: Reaso n for Exam Iron deficiency Performed By: #### C BC #### [facility] [address] [place] [address] [place] #### RPR W RFX #### [facility] , Platelets (Bld) [#/Vol] 220 10*3/uL Normal 150-450 [facility] Comment on above: Order Comment: Reaso n for Exam Iron deficiency Performed By: #### C BC #### [place] [address] [place] #### RPR W RFX #### [facility] , RBC (Bld) [#/Vol] 4.66 10*6/uL Normal 3.60-5.00 [facility] Comment on above: Order Comment: Reaso n for Exam Iron deficiency Performed By: #### C BC #### [facility] [address] [place] [address] #### RPR W RFX #### [facility] , WBC (Bld) [#/Vol] 5.6 10*3/uL Normal 3.8-11.6 [facility] Comment on above: Order Comment: Reaso n for Exam Iron deficiency Performed By: #### C BC #### [facility] [address] [place] [address] #### RPR W RFX #### [facility] , Comprehensive Metabolic Pane ramakrishna 04-15-2023 Albumin [Mass/Vol] 4.1 g/dL Normal 3.5-5.7 [facility] Comment on above: Order Comment: Reaso n for Exam Iron deficiency Reason for Exam High blood triglycerides Performed By: #### C BC #### [facility] [address] [place] [address] #### RPR W RFX #### [facility] , Albumin/Globulin [Mass ratio] 1.4 {ratio} Normal [facility] Comment on above: Order Comment: Reaso n for Exam Iron deficiency Reason for Exam High blood triglycerides Performed By: #### C BC #### [facility] [address] [place] [address] #### RPR W RFX #### [facility] , ALP [Catalytic activity/Vol] 89 U/L Normal 34-104 [facility] Comment on above: Order Comment: Reaso n for Exam Iron deficiency Reason for Exam High blood triglycerides Performed By: #### C BC #### [facility] [address] [place] [address] [place] #### RPR W RFX #### [facility] , ALT [Catalytic activity/Vol] 14 U/L Normal 7-52 [facility] Comment on above: Order Comment: Reaso n for Exam Iron deficiency Reason for Exam High blood triglycerides Performed By: #### C BC #### [facility] [address] [place] [address] #### RPR W RFX #### [facility] , Anion gap [Moles/Vol] 10.2 mmol/L Normal 6.0-15.0 [facility] Comment on above: Order Comment: Reaso n for Exam Iron deficiency Reason for Exam High blood triglycerides Performed By: #### C BC #### [facility] [address] [place] [address] #### RPR W RFX #### [facility] , AST [Catalytic activity/Vol] 13 U/L Normal 13-39 [facility] Comment on above: Order Comment: Reaso n for Exam Iron deficiency Reason for Exam High blood triglycerides Performed By: #### C BC #### [facility] [address] [place] [address] #### RPR W RFX #### [facility] , Bilirubin [Mass/Vol] 0.3 mg/dL Normal 0.3-1.0 [facility] Comment on above: Order Comment: Reaso n for Exam Iron deficiency Reason for Exam High blood triglycerides Performed By: #### C BC #### [facility] [address] [place] [address] [place] #### RPR W RFX #### [facility] , Calcium [Mass/Vol] 9.0 mg/dL Normal 8.6-10.3 [facility] Comment on above: Order Comment: Reaso n for Exam Iron deficiency Reason for Exam High blood triglycerides Performed By: #### C BC #### [facility] [address] [place] [address] #### RPR W RFX #### [facility] , Chloride [Moles/Vol] 105 mmol/L Normal 98-107 [facility] Comment on above: Order Comment: Reaso n for Exam Iron deficiency Reason for Exam High blood triglycerides Performed By: #### C BC #### [facility] [address] [place] [address] #### RPR W RFX #### [facility] , CO2 [Moles/Vol] 27.9 mmol/L Normal 21.0-31.0 [facility] Comment on above: Order Comment: Reaso n for Exam Iron deficiency Reason for Exam High blood triglycerides Performed By: #### C BC #### [address] #### RPR W RFX #### [facility] , Creatinine [Mass/Vol] 0.69 mg/dL Normal 0.60-1.20 [facility] Comment on above: Order Comment: Reaso n for Exam Iron deficiency Reason for Exam High blood triglycerides Performed By: #### C BC #### [address] #### RPR W RFX #### [facility] , GFR/1.73 sq M.predicted MDRD (S/P/Bld) [Vol rate/Area] mL/min/{1.73_m2} Normal [facility] Comment on above: Order Comment: Reaso n for Exam Iron deficiency Reason for Exam High blood triglycerides Performed By: #### C BC #### [facility] [address] [place] [address] [place] #### RPR W RFX #### [facility] , Globulin (S) [Mass/Vol] 2.9 g/dL Normal [facility] Comment on above: Order Comment: Reaso n for Exam Iron deficiency Reason for Exam High blood triglycerides Performed By: #### C BC #### [facility] [address] [place] [address] [place] #### RPR W RFX #### [facility] , Glucose [Mass/Vol] 103 mg/dL High 70-100 [facility] Comment on above: Order Comment: Reaso n for Exam Iron deficiency Reason for Exam High blood triglycerides Result Comment: [place] Glucose Reference Range is dependent on time and content of last meal. Glucose of more than 200 mg/dL in a nonstressed, ambulatory subject supports the diagnosis of Diabetes Mellitus. ADA recommended reference range Performed By: #### C BC #### [facility] [address] [place] [address] [place] #### RPR W RFX #### [facility] , Potassium [Moles/Vol] 4.1 mmol/L Normal 3.5-5.1 [facility] Comment on above: Order Comment: Reaso n for Exam Iron deficiency Reason for Exam High blood triglycerides Performed By: #### C BC #### [place] [address] [place] #### RPR W RFX #### [facility] , Protein [Mass/Vol] 7.0 g/dL Normal 6.4-8.9 [facility] Comment on above: Order Comment: Reaso n for Exam Iron deficiency Reason for Exam High blood triglycerides Performed By: #### C BC #### [place] [address] [place] #### RPR W RFX #### [facility] , Sodium [Moles/Vol] 139 mmol/L Normal 136-145 [facility] Comment on above: Order Comment: Reaso n for Exam Iron deficiency Reason for Exam High blood triglycerides Performed By: #### C BC #### [facility] [address] [place] [address] [place] #### RPR W RFX #### [facility] , Urea nitrogen [Mass/Vol] 12 mg/dL Normal 7-25 [facility] Comment on above: Order Comment: Reaso n for Exam Iron deficiency Reason for Exam High blood triglycerides Performed By: #### C BC #### [facility] [address] [place] [address] [place] #### RPR W RFX #### [facility] , Iron and TIBC Profileon 03-19 % Iron Saturation 8.6 % Low 20-50 [facility] Comment on above: Order Comment: Reaso n for Exam Iron deficiency Reason for Exam High blood triglycerides Performed By: #### C BC #### [facility] [address] [place] [address] #### RPR W RFX #### [facility] , Iron [Mass/Vol] 28 ug/dL Low 50-212 [facility] Comment on above: Order Comment: Reaso n for Exam Iron deficiency Reason for Exam High blood triglycerides Performed By: #### C BC #### [facility] [address] [place] [address] [place] #### RPR W RFX #### [facility] , Total Iron Binding Capacity 326 ug/dL Normal 255-450 [facility] Comment on above: Order Comment: Reaso n for Exam Iron deficiency Reason for Exam High blood triglycerides Performed By: #### C BC #### [facility] [address] [place] [address] #### RPR W RFX #### [facility] , Transferrin [Mass/Vol] 233 mg/dL Normal 203-362 [facility] Comment on above: Order Comment: Reaso n for Exam Iron deficiency Reason for Exam High blood triglycerides Performed By: #### C BC #### [facility] [address] [place] [address] [place] #### RPR W RFX #### [facility] [...] risk Performed By: #### C BC #### [facility] [address] [place] [address] [place] #### RPR W RFX #### [facility] [...] HIGH Performed By: #### C BC #### [facility] [address] [place] [address] #### RPR W RFX #### [facility] , Cholesterol.total/Chol esterol in HDL [Mass ratio] 3.4 {ratio} Normal <5.0 [facility] Comment on above: Order Comment: Reaso n for Exam Iron deficiency Reason for Exam High blood triglycerides Result Comment: PERF ORMED BY: [place] [address] PATHOLOGIST ASSISTANT LIBRARIAN ALLA OROZCO M.D. Performed By: #### C BC #### [facility] [address] [place] [address] #### RPR W RFX #### [facility] , [...] high Performed By: #### C BC #### [facility] [address] [place] [address] [place] #### RPR W RFX #### [facility] [...] method. Performed By: #### C BC #### [address] #### RPR W RFX #### [facility] , VLDL CHOLESTEROL 34 mg/dL Normal [facility] Comment on above: Order Comment: Reaso n for Exam Iron deficiency Reason for Exam High blood triglycerides Performed By: #### C BC #### [address] #### RPR W RFX #### [facility] , A1C with Estimated Average G luon 03-17-2023 Glucose [Mass/Vol] 114 mg/dL Normal [facility] Comment on above: Order Comment: Name Collection Type:: Clean-Voided Midstream Result Comment: PERF ORMED BY: [place] [address] PATHOLOGIST ASSISTANT LIBRARIAN ALLA OROZCO M.D. Performed By: #### [facility] #### [address] Glucose mean value [Mass/vol ume] in Blood Estimated from glycated hemoglobinOrdered By: Nataly Toure on 03-17-2023 Average glucose Estimated from glycated hemoglobin (Bld) [Mass/Vol] 114 mg/dL [facility] Hemoglobin A1c percentageOrd ered By: Nataly Toure on 03-17-2023 HbA1c (Bld) [Mass fraction] 5.6 % Normal 4.3-5.6 [facility] Comment on above: Increased risk for d iabetes: 5.7 - 6.4diabetes: >6.4glycemic control for adults with diabetes: <7.0 Order Comment: Name Collection Type:: Clean-Voided Midstream Result Comment: Incr eased risk for diabetes: 5.7 - 6.4 diabetes: >6.4 glycemic control for adults with diabetes: <7.0 Performed By: #### A DDONUAPLUS, U[facility]CG #### [address] Insulinon 03-17-2023 Insulin 105.0 u[iU]/mL High 2.6-24.9 [facility] Comment on above: Order Comment: Name Collection Type:: Clean-Voided Midstream Result Comment: Perf ormed at: - [facility] [address] [id number] [employer] Sharpshooter: Sam Lopez PhD, Phone: [phone] PERFORMED BY: [place] [address] PATHOLOGIST ASSISTANT LIBRARIAN ALLA OROZCO M.D. Performed By: #### A [facility] #### [address] Alanine aminotransferase [En zymatic activity/volume] in Serum or PlasmaOrdered By: Nataly Toure on 03-04-2023 ALT [Catalytic activity/Vol] 12 U/L Normal 7-52 [facility] Comment on above: Order Comment: Reaso n for Exam Obesity, unspecified;High blood triglycerides Reason for Exam Iron deficiency Reason for Exam High blood triglycerides Reason for Exam Hypothyroidism, unspecified type Performed By: #### C BC #### [address] #### RPR W RFX #### [facility] , Albumin [Mass/volume] in Ser um or Plasma by Bromocresol green (BCG) dye binding methoOrdered By: Nataly Toure on 03-04-2023 Albumin BCG dye [Mass/Vol] 3.7 g/dL 3.5-5.7 [facility] Alkaline phosphatase [Enzyma tic activity/volume] in Serum or PlasmaOrdered By: Nataly Toure on 03-04-2023 ALP [Catalytic activity/Vol] 100 U/L Normal 34-104 [facility] Comment on above: Order Comment: Reaso n for Exam Obesity, unspecified;High blood triglycerides Reason for Exam Iron deficiency Reason for Exam High blood triglycerides Reason for Exam Hypothyroidism, unspecified type Performed By: #### C BC #### [facility] [address] [place] [address] [place] #### RPR W RFX #### [facility] , Aspartate aminotransferase [ Enzymatic activity/volume] in Serum or PlasmaOrdered By: Nataly Toure on 03-04-2023 AST [Catalytic activity/Vol] 12 U/L Low 13-39 [facility] Comment on above: Order Comment: Reaso n for Exam Obesity, unspecified;High blood triglycerides Reason for Exam Iron deficiency Reason for Exam High blood triglycerides Reason for Exam Hypothyroidism, unspecified type Performed By: #### C BC #### [facility] [address] [place] [address] [place] #### RPR W RFX #### [facility] , Automated basophil %Ordered By: Nataly Toure on 03-04-2023 Basophils/100 WBC (Bld) 1.0 % Normal . [facility] Comment on above: Order Comment: Reaso n for Exam Obesity, unspecified;High blood triglycerides Performed By: #### C BC #### [facility] [address] [place] [address] #### RPR W RFX #### [facility] , Automated basophil countOrde red By: Nataly Toure on 03-04-2023 Basophils (Bld) [#/Vol] 0.1 10*3/uL Normal 0.0-0.2 [facility] Comment on above: Order Comment: Reaso n for Exam Obesity, unspecified;High blood triglycerides Result Comment: PERF ORMED BY: [place] [address] PATHOLOGIST ASSISTANT LIBRARIAN ALLA OROZCO M.D. Performed By: #### C BC #### [facility] [address] [place] [address] [place] #### RPR W RFX #### [facility] , Automated blood monocyte cou ntOrdered By: Nataly Toure on 03-04-2023 Monocytes (Bld) [#/Vol] 0.6 10*3/uL Normal 0.0-0.8 [facility] Comment on above: Order Comment: Reaso n for Exam Obesity, unspecified;High blood triglycerides Performed By: #### C BC #### [facility] [address] [place] [address] [place] #### RPR W RFX #### [facility] , Automated eosinophil %Ordere d By: Nataly Toure on 03-04-2023 Eosinophils/100 WBC (Bld) 2.0 % Normal . [facility] Comment on above: Order Comment: Reaso n for Exam Obesity, unspecified;High blood triglycerides Performed By: #### C BC #### [facility] [address] [place] [address] #### RPR W RFX #### [facility] , Automated eosinophil countOr dered By: Nataly Toure on 03-04-2023 Eosinophils (Bld) [#/Vol] 0.1 10*3/uL Normal 0.0-0.45 [facility] Comment on above: Order Comment: Reaso n for Exam Obesity, unspecified;High blood triglycerides Performed By: #### C BC #### [facility] [address] [place] [address] [place] #### RPR W RFX #### [facility] , Automated monocyte %Ordered By: Nataly Toure on 03-04-2023 Monocytes/100 WBC (Bld) 9.2 % Normal . [facility] Comment on above: Order Comment: Reaso n for Exam Obesity, unspecified;High blood triglycerides Performed By: #### C BC #### [facility] [address] [place] [address] [place] #### RPR W RFX #### [facility] , Automated neutrophil %Ordere d By: Nataly Toure on 03-04-2023 Neutrophils/100 WBC (Bld) 58.4 % Normal . [facility] Comment on above: Order Comment: Reaso n for Exam Obesity, unspecified;High blood triglycerides Performed By: #### C BC #### [facility] [address] [place] [address] [place] #### RPR W RFX #### [facility] , Bilirubin.total [Mass/volume ] in Serum or PlasmaOrdered By: Natalyros Toure on 03-04-2023 Bilirubin [Mass/Vol] 0.3 mg/dL Normal 0.3-1.0 [facility] Comment on above: Order Comment: Reaso n for Exam Obesity, unspecified;High blood triglycerides Reason for Exam Iron deficiency Reason for Exam High blood triglycerides Reason for Exam Hypothyroidism, unspecified type Performed By: #### C BC #### [facility] [address] [place] [address] #### RPR W RFX #### [facility] , Calcium [Mass/volume] in Ser um or PlasmaOrdered By: Nataly Toure on 03-04-2023 Calcium [Mass/Vol] 8.9 mg/dL Normal 8.6-10.3 [facility] Comment on above: Order Comment: Reaso n for Exam Obesity, unspecified;High blood triglycerides Reason for Exam Iron deficiency Reason for Exam High blood triglycerides Reason for Exam Hypothyroidism, unspecified type Performed By: #### C BC #### [facility] [address] [place] [address] #### RPR W RFX #### [facility] , Carbon dioxide, total [Moles /volume] in Serum or PlasmaOrdered By: Nataly Toure on 03-04-2023 CO2 [Moles/Vol] 26.6 mmol/L Normal 21.0-31.0 [facility] Comment on above: Order Comment: Reaso n for Exam Obesity, unspecified;High blood triglycerides Reason for Exam Iron deficiency Reason for Exam High blood triglycerides Reason for Exam Hypothyroidism, unspecified type Performed By: #### C BC #### [facility] [address] [place] [address] [place] #### RPR W RFX #### [facility] , Chloride [Moles/volume] in S rosa or PlasmaOrdered By: Nataly Toure on 03-04-2023 Chloride [Moles/Vol] 105 mmol/L Normal 98-107 [facility] Comment on above: Order Comment: Reaso n for Exam Obesity, unspecified;High blood triglycerides Reason for Exam Iron deficiency Reason for Exam High blood triglycerides Reason for Exam Hypothyroidism, unspecified type Performed By: #### C BC #### [facility] [address] [place] [address] [place] #### RPR W RFX #### [facility] , Cholesterol [Mass/volume] in Serum or PlasmaOrdered By: Nataly Toure on 03-04-2023 Cholesterol [Mass/Vol] 231 mg/dL High 140-200 [facility] Comment on above: Chol less than [...] risk Performed By: #### C BC #### [facility] [address] [place] [address] [place] #### RPR W RFX #### [facility] , Cholesterol in LDL Calc [Mas s/Vol]Ordered By: Nataly Toure on 03-04-2023 Cholesterol in LDL [Mass/Vol] [facility] Comment on above: Test not performed Cholesterol in LDL [Mass/vol ume] in Serum or PlasmaOrdered By: Nataly Toure on 03-04-2023 Cholesterol in LDL [Mass/Vol] 81 mg/dL 0-100 [facility] Comment on above: LDL ATP III CLASSIFI CATIONLDL less than 100 mg/dL OptimalLDL 100-129 mg/dL Near or above optimalLDL 130-159 mg/dL Borderline highLDL 160-189 mg/dL HighLDL greater than 189 mg/dL Very high Cholesterol in VLDL Calc [Ma ss/Vol]Ordered By: Nataly Toure on 03-04-2023 Cholesterol in VLDL [Mass/Vol] 172 mg/dL [facility] Complete Blood Count Auto Di ffon 03-04-2023 Mean Corpuscular HGB Conc 32.7 g/dL Normal 32.0-35.0 [facility] Comment on above: Order Comment: Reaso n for Exam Obesity, unspecified;High blood triglycerides Performed By: #### C BC #### [facility] [address] [place] [address] [place] #### RPR W RFX #### [facility] , NRBC% 0.1 /100{WBC} Normal 0-0.5 [facility] Comment on above: Order Comment: Reaso n for Exam Obesity, unspecified;High blood triglycerides Performed By: #### C BC #### [address] #### RPR W RFX #### [facility] , Comprehensive Metabolic Pane ramakrishna 03-04-2023 Albumin [Mass/Vol] 3.7 g/dL Normal 3.5-5.7 [facility] Comment on above: Order Comment: Reaso n for Exam Obesity, unspecified;High blood triglycerides Reason for Exam Iron deficiency Reason for Exam High blood triglycerides Reason for Exam Hypothyroidism, unspecified type Performed By: #### C BC #### [place] [address] [place] #### RPR W RFX #### [facility] , GFR/1.73 sq M.predicted MDRD (S/P/Bld) [Vol rate/Area] mL/min/{1.73_m2} Normal [facility] Comment on above: Order Comment: Reaso n for Exam Obesity, unspecified;High blood triglycerides Reason for Exam Iron deficiency Reason for Exam High blood triglycerides Reason for Exam Hypothyroidism, unspecified type Performed By: #### C BC #### [facility] [address] [place] [address] [place] #### RPR W RFX #### [facility] , Creatinine [Mass/volume] in Serum or PlasmaOrdered By: Nataly Toure on 03-04-2023 Creatinine [Mass/Vol] 0.72 mg/dL Normal 0.60-1.20 [facility] Comment on above: Order Comment: Reaso n for Exam Obesity, unspecified;High blood triglycerides Reason for Exam Iron deficiency Reason for Exam High blood triglycerides Reason for Exam Hypothyroidism, unspecified type Performed By: #### C BC #### [facility] [address] [place] [address] [place] #### RPR W RFX #### [facility] , Erythrocyte distribution wid th [Ratio] by Automated countOrdered By: Nataly Toure on 03-04-2023 Erythrocyte distribution width (RBC) [Ratio] 16.0 % High 11.9-15.3 [facility] Comment on above: Order Comment: Reaso n for Exam Obesity, unspecified;High blood triglycerides Performed By: #### C BC #### [place] [address] [place] #### RPR W RFX #### [facility] , Erythrocytes [#/volume] in B lood by Automated countOrdered By: Nataly Toure on 03-04-2023 RBC (Bld) [#/Vol] 4.52 10*6/uL Normal 3.60-5.00 [facility] Comment on above: Order Comment: Reaso n for Exam Obesity, unspecified;High blood triglycerides Performed By: #### C BC #### [facility] [address] [place] [address] [place] #### RPR W RFX #### [facility] [...] type Performed By: #### C BC #### [place] [address] [place] #### RPR W RFX #### [facility] , Glucose [Mass/volume] in Ser um or PlasmaOrdered By: Nataly Toure on 03-04-2023 Glucose [Mass/Vol] 95 mg/dL Normal 70-100 [facility] Comment on above: ADA recommended [...] for Exam Hypothyroidism, unspecified type Result Comment: [place] om Glucose Reference Range is dependent on time and content of last meal. Glucose of more than 200 mg/dL in a nonstressed, ambulatory subject supports the diagnosis of Diabetes Mellitus. ADA recommended reference range Performed By: #### C BC #### [place] [address] [place] #### RPR W RFX #### [facility] , Hematocrit [Volume Fraction] of Blood by Automated countOrdered By: Nataly Toure on 03-04-2023 Hematocrit (Bld) [Volume fraction] 34.7 % Normal 34.0-46.4 [facility] Comment on above: Order Comment: Reaso n for Exam Obesity, unspecified;High blood triglycerides Performed By: #### C BC #### [facility] [address] [place] [address] [place] #### RPR W RFX #### [facility] , Hemoglobin [Mass/volume] in BloodOrdered By: Nataly Toure on 03-04-2023 Hemoglobin (Bld) [Mass/Vol] 11.3 g/dL Low 11.8-15.4 [facility] Comment on above: Order Comment: Reaso n for Exam Obesity, unspecified;High blood triglycerides Performed By: #### C BC #### [place] [address] [place] #### RPR W RFX #### [facility] , Iron [Mass/volume] in Serum or PlasmaOrdered By: Nataly Toure on 03-04-2023 Iron [Mass/Vol] 43 ug/dL Low 50-212 [facility] Comment on above: Order Comment: Reaso n for Exam Obesity, unspecified;High blood triglycerides Reason for Exam Iron deficiency Reason for Exam High blood triglycerides Reason for Exam Hypothyroidism, unspecified type Performed By: #### C BC #### [facility] [address] [place] [address] [place] #### RPR W RFX #### [facility] , Iron and TIBC Profileon 02-15 % Iron Saturation 11.5 % Low 20-50 [facility] Comment on above: Order Comment: Reaso n for Exam Obesity, unspecified;High blood triglycerides Reason for Exam Iron deficiency Reason for Exam High blood triglycerides Reason for Exam Hypothyroidism, unspecified type Performed By: #### C BC #### [facility] [address] [place] [address] [place] #### RPR W RFX #### [facility] , Total Iron Binding Capacity 375 ug/dL Normal 255-450 [facility] Comment on above: Order Comment: Reaso n for Exam Obesity, unspecified;High blood triglycerides Reason for Exam Iron deficiency Reason for Exam High blood triglycerides Reason for Exam Hypothyroidism, unspecified type Performed By: #### C BC #### [facility] [address] [place] [address] [place] #### RPR W RFX #### [facility] , Iron binding capacity [Mass/ volume] in Serum or PlasmaOrdered By: Nataly Toure on 03-04-2023 Iron binding capacity [Mass/Vol] 375 ug/dL 255-450 [facility] Iron saturation [Mass Fracti on] in Serum or PlasmaOrdered By: Nataly Jerniganc on 03-04-2023 Iron saturation [Mass fraction] 11.5 % 20-50 [facility] LDL Cholesterol Measuredon 0 03-04-2023 [...] high Performed By: #### C USTB #### [facility] [address] [place] [address] Leukocytes [#/volume] correc kee for nucleated erythrocytes in Blood by Automated counOrdered By: Nataly Toure on 03-04-2023 WBC corrected for nucl RBC Auto (Bld) [#/Vol] 6.2 10*3/uL 3.8-11.6 [facility] Leukocytes [#/volume] in Blo od by Automated countOrdered By: Nataly Toure on 03-04-2023 WBC (Bld) [#/Vol] 6.2 10*3/uL Normal 3.8-11.6 [facility] Comment on above: Order Comment: Reaso n for Exam Obesity, unspecified;High blood triglycerides Performed By: #### C BC #### [facility] [address] [place] [address] [place] #### RPR W RFX #### [facility] , Lipid Panelon 03-04-2023 LDL Cholesterol,Calculated Not performed Normal 0-100 [facility] Comment on above: Order Comment: Reaso n for Exam Obesity, unspecified;High blood triglycerides Reason for Exam Iron deficiency Reason for Exam High blood triglycerides Reason for Exam Hypothyroidism, unspecified type Performed By: #### C BC #### [facility] [address] [place] [address] [place] #### RPR W RFX #### [facility] [...] resulted. Performed By: #### C BC #### [facility] [address] [place] [address] [place] #### RPR W RFX #### [facility] , VLDL CHOLESTEROL 172 mg/dL Normal [facility] Comment on above: Order Comment: Reaso n for Exam Obesity, unspecified;High blood triglycerides Reason for Exam Iron deficiency Reason for Exam High blood triglycerides Reason for Exam Hypothyroidism, unspecified type Performed By: #### C BC #### [place] [address] [place] #### RPR W RFX #### [facility] , Lymphocytes [#/volume] in Bl ood by Automated countOrdered By: Nataly Touer on 03-04-2023 Lymphocytes (Bld) [#/Vol] 1.8 10*3/uL Normal 1.00-4.8 [facility] Comment on above: Order Comment: Reaso n for Exam Obesity, unspecified;High blood triglycerides Performed By: #### C BC #### [place] [address] [place] #### RPR W RFX #### [facility] , Lymphocytes/100 leukocytes i n Blood by Automated countOrdered By: Nataly Toure on 03-04-2023 Lymphocytes/100 WBC (Bld) 29.4 % Normal . [facility] Comment on above: Order Comment: Reaso n for Exam Obesity, unspecified;High blood triglycerides Performed By: #### C BC #### [place] [address] [place] #### RPR W RFX #### [facility] , MCH [Entitic mass] by Automa kee countOrdered By: Nataly Toure on 03-04-2023 MCH (RBC) [Entitic mass] 25.1 pg Normal 24.7-34.3 [facility] Comment on above: Order Comment: Reaso n for Exam Obesity, unspecified;High blood triglycerides Performed By: #### C BC #### [facility] [address] [place] [address] [place] #### RPR W RFX #### [facility] , MCHC Auto (RBC) [Mass/Vol]Or dered By: Nataly Toure on 03-04-2023 MCHC (RBC) [Mass/Vol] 32.7 g/dL 32.0-35.0 [facility] MCV [Entitic volume] by Auto mated countOrdered By: Nataly Toure on 03-04-2023 MCV (RBC) [Entitic vol] 76.7 fL Low 80-100 [facility] Comment on above: Order Comment: Reaso n for Exam Obesity, unspecified;High blood triglycerides Performed By: #### C BC #### [facility] [address] [place] [address] [place] #### RPR W RFX #### [facility] , Neutrophils [#/volume] in Bl ood by Automated countOrdered By: Nataly Toure on 03-04-2023 Neutrophils (Bld) [#/Vol] 3.6 10*3/uL Normal 1.8-7.7 [facility] Comment on above: Order Comment: Reaso n for Exam Obesity, unspecified;High blood triglycerides Performed By: #### C BC #### [facility] [address] [place] [address] [place] #### RPR W RFX #### [facility] , No Panel InformationOrdered By: Nataly Toure on 03-04-2023 Estimated GFR (CKD-EPI) > 60.0 mL/Min [facility] Creatinine Clearance (Chem N/A [facility] Nucleated erythrocytes [Pres ence] in Blood by Automated countOrdered By: Nataly Toure on 03-04-2023 Nucleated RBC Auto Ql (Bld) 0.1 /100{WBC} 0-0.5 [facility] Platelet mean volume [Entiti c volume] in Blood by Automated countOrdered By: Nataly Toure on 03-04-2023 Platelet mean volume (Bld) [Entitic vol] 9.8 fL Normal 6.3-10.7 [facility] Comment on above: Order Comment: Reaso n for Exam Obesity, unspecified;High blood triglycerides Performed By: #### C BC #### [facility] [address] [place] [address] [place] #### RPR W RFX #### [facility] , Platelets [#/volume] in Bloo d by Automated countOrdered By: Nataly Toure on 03-04-2023 Platelets (Bld) [#/Vol] 217 10*3/uL Normal 150-450 [facility] Comment on above: Order Comment: Reaso n for Exam Obesity, unspecified;High blood triglycerides Performed By: #### C BC #### [facility] [address] [place] [address] [place] #### RPR W RFX #### [facility] , Potassium [Moles/volume] in Serum or PlasmaOrdered By: Nataly Toure on 03-04-2023 Potassium [Moles/Vol] 3.8 mmol/L Normal 3.5-5.1 [facility] Comment on above: Order Comment: Reaso n for Exam Obesity, unspecified;High blood triglycerides Reason for Exam Iron deficiency Reason for Exam High blood triglycerides Reason for Exam Hypothyroidism, unspecified type Performed By: #### C BC #### [facility] [address] [place] [address] [place] #### RPR W RFX #### [facility] , Protein [Mass/volume] in Ser um or PlasmaOrdered By: Nataly Toure on 03-04-2023 Protein [Mass/Vol] 6.4 g/dL Normal 6.4-8.9 [facility] Comment on above: Order Comment: Reaso n for Exam Obesity, unspecified;High blood triglycerides Reason for Exam Iron deficiency Reason for Exam High blood triglycerides Reason for Exam Hypothyroidism, unspecified type Performed By: #### C BC #### [facility] [address] [place] [address] #### RPR W RFX #### [facility] , Serum globulin measurement b y calculation (mass/volume)Ordered By: Nataly Toure on 03-04-2023 Globulin (S) [Mass/Vol] 2.7 g/dL [facility] Comment on above: Order Comment: Reaso n for Exam Obesity, unspecified;High blood triglycerides Reason for Exam Iron deficiency Reason for Exam High blood triglycerides Reason for Exam Hypothyroidism, unspecified type Performed By: #### C BC #### [facility] [address] [place] [address] #### RPR W RFX #### [facility] , Serum or plasma albumin/glob ulin mass ratioOrdered By: Nataly Toure on 03-04-2023 Albumin/Globulin [Mass ratio] 1.4 {ratio} [facility] Comment on above: Order Comment: Reaso n for Exam Obesity, unspecified;High blood triglycerides Reason for Exam Iron deficiency Reason for Exam High blood triglycerides Reason for Exam Hypothyroidism, unspecified type Performed By: #### C BC #### [facility] [address] [place] [address] [place] #### RPR W RFX #### [facility] , Serum or plasma anion gap de terminationOrdered By: Nataly Toure on 03-04-2023 Anion gap [Moles/Vol] 11.2 mmol/L Normal 6.0-15.0 [facility] Comment on above: Order Comment: Reaso n for Exam Obesity, unspecified;High blood triglycerides Reason for Exam Iron deficiency Reason for Exam High blood triglycerides Reason for Exam Hypothyroidism, unspecified type Performed By: #### C BC #### [facility] [address] [place] [address] [place] #### RPR W RFX #### [facility] , Serum or plasma high density lipoprotein (HDL) cholesterol measurementOrdered By: Nataly Toure on 03-04-2023 Cholesterol in HDL [Mass/Vol] 35 mg/dL Normal 23-92 [facility] Comment on above: HDL CHOL [...] HIGH Performed By: #### C BC #### [facility] [address] [place] [address] #### RPR W RFX #### [facility] , Serum or plasma total choles terol/high density lipoprotein (HDL) cholesterol mass ratOrdered By: Nataly Toure on 03-04-2023 Cholesterol.total/Chol esterol in HDL [Mass ratio] 6.6 {ratio} Normal <5.0 [facility] Comment on above: Order Comment: Reaso n for Exam Obesity, unspecified;High blood triglycerides Reason for Exam Iron deficiency Reason for Exam High blood triglycerides Reason for Exam Hypothyroidism, unspecified type Performed By: #### C BC #### [facility] [address] [place] [address] [place] #### RPR W RFX #### [facility] , Sodium [Moles/volume] in Ser um or PlasmaOrdered By: Nataly Toure on 03-04-2023 Sodium [Moles/Vol] 139 mmol/L Normal 136-145 [facility] Comment on above: Order Comment: Reaso n for Exam Obesity, unspecified;High blood triglycerides Reason for Exam Iron deficiency Reason for Exam High blood triglycerides Reason for Exam Hypothyroidism, unspecified type Performed By: #### C BC #### [facility] [address] [place] [address] [place] #### RPR W RFX #### [facility] [...] unspecified type Result Comment: PERF ORMED BY: [place] [address] PATHOLOGIST ASSISTANT LIBRARIAN ALLA OROZCO M.D. Performed By: #### C USTB #### [facility] [address] [place] [address] Thyrotropin [Units/volume] i n Serum or PlasmaOrdered By: Nataly Toure on 03-04-2023 TSH Qn 1.50 m[IU]/L 0.45-5.33 [facility] Transferrin [Mass/volume] in Serum or PlasmaOrdered By: Nataly Toure on 03-04-2023 Transferrin [Mass/Vol] 268 mg/dL Normal 203-362 [facility] Comment on above: Order Comment: Reaso n for Exam Obesity, unspecified;High blood triglycerides Reason for Exam Iron deficiency Reason for Exam High blood triglycerides Reason for Exam Hypothyroidism, unspecified type Performed By: #### C BC #### [facility] [address] [place] [address] #### RPR W RFX #### [facility] , Triglyceride [Mass/volume] i n Serum or PlasmaOrdered By: Nataly Toure on 03-04-2023 Triglyceride [Mass/Vol] 863 mg/dL 0-149 [facility] Comment on above: If the [...] [Mass/Vol] 11 mg/dL Normal 7-25 [facility] Comment on above: Order Comment: Reaso n for Exam Obesity, unspecified;High blood triglycerides Reason for Exam Iron deficiency Reason for Exam High blood triglycerides Reason for Exam Hypothyroidism, unspecified type Performed By: #### C BC #### [facility] [address] [place] [address] #### RPR W RFX #### [facility] , Vitamin B12 ser/plasOrdered By: Nataly Toure on 03-04-2023 Cobalamin (Vitamin B12) [Mass/Vol] 303 pg/mL Normal 180-914 [facility] Comment on above: Order Comment: Reaso n for Exam Obesity, unspecified;High blood triglycerides Reason for Exam Iron deficiency Reason for Exam High blood triglycerides Reason for Exam Hypothyroidism, unspecified type Performed By: #### C USTB #### [address] Automated basophil %Ordered By: EDE WAY on 02-13-2023 Basophils/100 WBC (Bld) 0.7 % Normal . [facility] Comment on above: Performed By: #### C BC #### [address] #### RPR W RFX #### [facility] , Automated basophil countOrde red By: EDE WAY on 02-13-2023 Basophils (Bld) [#/Vol] 0.1 10*3/uL Normal 0.0-0.2 [facility] Comment on above: Result Comment: PERF ORMED BY: [place] [address] PATHOLOGIST ASSISTANT LIBRARIAN ALLA OROZCO M.D. Performed By: #### C BC #### [address] #### RPR W RFX #### [facility] , Automated blood monocyte cou ntOrdered By: EDE WAY on 02-13-2023 Monocytes (Bld) [#/Vol] 0.8 10*3/uL Normal 0.0-0.8 [facility] Comment on above: Performed By: #### C BC #### [facility] [address] [place] [address] [place] #### RPR W RFX #### [facility] , Automated eosinophil %Ordere d By: EDE WAY on 02-13-2023 Eosinophils/100 WBC (Bld) 0.6 % Normal . [facility] Comment on above: Performed By: #### C BC #### [facility] [address] [place] [address] [place] #### RPR W RFX #### [facility] , Automated eosinophil countOr dered By: EDE WAY on 02-13-2023 Eosinophils (Bld) [#/Vol] 0.1 10*3/uL Normal 0.0-0.45 [facility] Comment on above: Performed By: #### C BC #### [facility] [address] [place] [address] [place] #### RPR W RFX #### [facility] , Automated erythrocytes count in urine sediment (number/area)Ordered By: EDE WAY on 02-13-2023 RBC Auto (Urine sed) [#/Area] Innumerable [HPF] 0-4 [facility] Automated leukocytes count i n urine sediment (number/area)Ordered By: EDE WAY on 02-13-2023 WBC Auto (Urine sed) [#/Area] 5-9 [HPF] 0-4 [facility] Automated monocyte %Ordered By: EDE WAY on 02-13-2023 Monocytes/100 WBC (Bld) 8.8 % Normal . [facility] Comment on above: Performed By: #### C BC #### [facility] [address] [place] [address] [place] #### RPR W RFX #### [facility] , Automated neutrophil %Ordere d By: EDE WAY on 02-13-2023 Neutrophils/100 WBC (Bld) 73.7 % Normal . [facility] Comment on above: Performed By: #### C BC #### [address] #### RPR W RFX #### [facility] , Automated urine color determ inationOrdered By: EDE WAY on 02-13-2023 Color (U) [place] Critically abnormal Yellow [facility] Comment on above: Order Comment: Name Collection Type:: Voided Performed By: #### C USTB #### [address] Bilirubin Test strip Ql (U)O rdered By: EDE WAY on 02-13-2023 Bilirubin Ql (U) Negative Negative [facility] Complete Blood Count Auto Di ffon 02-13-2023 Mean Corpuscular HGB Conc 33.8 g/dL Normal 32.0-35.0 [facility] Comment on above: Performed By: #### C BC #### [address] #### RPR W RFX #### [facility] , NRBC% 0.1 /100{WBC} Normal 0-0.5 [facility] Comment on above: Performed By: #### C BC #### [address] #### RPR W RFX #### [facility] , Dipstick and Microscopicon 1 Appearance (U) Clear Normal Clear [facility] Comment on above: Order Comment: Name Collection Type:: Voided Performed By: #### C USTB #### [place] [address] [place] Bacteria,Urine None Seen Normal None Seen [facility] Comment on above: Order Comment: Name Collection Type:: Voided Performed By: #### C USTB #### [place] [address] [place] Bilirubin,Urine Negative Normal Negative [facility] Comment on above: Order Comment: Name Collection Type:: Voided Performed By: #### C USTB #### [place] [address] [place] Glucose Ql (U) Normal Normal Normal [facility] Comment on above: Order Comment: Name Collection Type:: Voided Performed By: #### C USTB #### [place] [address] [place] Hyaline Casts,Urine 0-8 Normal 0-8 [facility] Comment on above: Order Comment: Name Collection Type:: Voided Result Comment: PERF ORMED BY: [place] [address] PATHOLOGIST ASSISTANT LIBRARIAN ALLA OROZCO M.D. Performed By: #### C USTB #### [address] Ketones Ql (U) Trace High Negative [facility] Comment on above: Order Comment: Name Collection Type:: Voided Performed By: #### C USTB #### [place] [address] [place] Leukocyte esterase Test strip Ql (U) 1+ High Negative [facility] Comment on above: Order Comment: Name Collection Type:: Voided Performed By: #### C USTB #### [address] Nitrite,Urine Negative Normal Negative [facility] Comment on above: Order Comment: Name Collection Type:: Voided Performed By: #### C USTB #### [place] [address] [place] Occult Blood,Urine 3+ High Negative [facility] Comment on above: Order Comment: Name Collection Type:: Voided Result Comment: PERF ORMED BY: [place] [address] PATHOLOGIST ASSISTANT LIBRARIAN ALLA OROZCO M.D. Performed By: #### C USTB #### [place] [address] [place] RBC,Urine Innumerable High 0-4 [facility] Comment on above: Order Comment: Name Collection Type:: Voided Performed By: #### C USTB #### [address] Specificy [place],Urine 1.015 Normal 1.001-1.03 0 [facility] Comment on above: Order Comment: Name Collection Type:: Voided Performed By: #### C USTB #### [address] Squamous Epithelial Cell,Urine 3-4 High 0-2 [facility] Comment on above: Order Comment: Name Collection Type:: Voided Performed By: #### C USTB #### [address] Urobilinogen,Urine Normal Normal Normal [facility] Comment on above: Order Comment: Name Collection Type:: Voided Performed By: #### C USTB #### [address] WBC,Urine 5-9 High 0-4 [facility] Comment on above: Order Comment: Name Collection Type:: Voided Performed By: #### C USTB #### [address] Erythrocyte distribution wid th [Ratio] by Automated countOrdered By: EDE WAY on 02-13-2023 Erythrocyte distribution width (RBC) [Ratio] 16.2 % High 11.9-15.3 [facility] Comment on above: Performed By: #### C BC #### [address] #### RPR W RFX #### [facility] , Erythrocytes [#/volume] in B lood by Automated countOrdered By: EDE WAY on 02-13-2023 RBC (Bld) [#/Vol] 4.38 10*6/uL Normal 3.60-5.00 [facility] Comment on above: Performed By: #### C BC #### [address] [place] [address] [place] #### RPR W RFX #### [facility] , Hematocrit [Volume Fraction] of Blood by Automated countOrdered By: EDE WAY on 02-13-2023 Hematocrit (Bld) [Volume fraction] 33.2 % Low 34.0-46.4 [facility] Comment on above: Performed By: #### C BC #### [facility] [address] [place] [address] [place] #### RPR W RFX #### [facility] , Hemoglobin [Mass/volume] in BloodOrdered By: EDE WAY on 02-13-2023 Hemoglobin (Bld) [Mass/Vol] 11.2 g/dL Low 11.8-15.4 [facility] Comment on above: Performed By: #### C BC #### [facility] [address] [place] [address] [place] #### RPR W RFX #### [facility] , Ketones Auto test strip (U) [Mass/Vol]Ordered By: EDE WAY on 02-13-2023 Ketones (U) [Mass/Vol] Trace Negative [facility] 02-13-2023 L ------ Specimen: [id number] Received: 02/16/23 Status: NICK Forbes Num: [id number] Spec Type: Surgical Subm Dr: EDE WAY MD Tissues: A Placenta - 3rd Trimester (Greater than 28 weeks) (PLACENTA) Procedures: HE/3, Gross/Micro L5 Age/ Patient Sex Location Account Attending Physician Rosette Alba [id number] EDE WAY MD SPEC NUM: [id number] RECD: 02/16/23 STATUS: NICK FORBES NUM: [id number] MAURY: 02/13/23- [facility] DR: EDE WAY MD ENTERED: 02/16/[address] [facility] DR: CARLOS TYPE: Surgical DEPT: S [...] less than 5% of the cut surface. Disbursing Agent sections are submitted in 3 cassettes as follows: A1 - cord and central disc A2 - membranes and marginal disc Specimen: [id number] Received: 02/16/23 Status: NICK Forbes Num: [id number] Spec Type: Surgical Subm Dr: EDE WAY MD Tissues: A Placenta - 3rd Trimester (Greater than 28 weeks) (PLACENTA) Procedures: HE/Arianna, Gross/Micro L5 Patient: Rosette Alba [id number] (Continued) Specimen: [id number] Received: 02/16/23 (Continued) Gross Description (Continued) Signed (signature on file) Ishan Richardson MD 02/17/230 Specimen: [id number] Received: 02/16/23 Status: NICK Marcus Num: [id number] Spec Type: Surgical Subm Dr: EDE WAY MD Tissues: A Placenta - 3rd Trimester (Greater than 28 weeks) (PLACENTA) Procedures: /Arianna, Gross/Micro L5 Patient: Rosette Alba [id number] (Continued) Specimen: [id number] Received: 02/16/23 (Continued) Gross Description (Continued) A3 - Central lesional area Microscopic Description Three H E slides reviewed. The microscopic examination confirms the diagnosis. CPT Codes 10642 Specimen: [id number] Received: 02/16/23 Status: NICK Forbes Num: [id number] Spec Type: Surgical Subm Dr: EDE WAY MD Tissues: A Placenta - 3rd Trimester (Greater than 28 weeks) (PLACENTA) Procedures: HE/Arianna, Gross/Micro L5 Patient: Rosette Alba [id number] (Continued) Signed (signature on file) Ishan Richardson MD 02/17/232199 Normal [facility] Laboratory - UrinalysisOrder ed By: EDE WAY on 02-13-2023 Hyaline casts LM Ql (Urine sed) 0-8 [LPF] 0-8 [facility] Leukocytes [#/volume] correc kee for nucleated erythrocytes in Blood by Automated counOrdered By: EDE WAY on 02-13-2023 WBC corrected for nucl RBC Auto (Bld) [#/Vol] 9.1 10*3/uL 3.8-11.6 [facility] Leukocytes [#/volume] in Blo od by Automated countOrdered By: EDE WAY on 02-13-2023 WBC (Bld) [#/Vol] 9.1 10*3/uL Normal 3.8-11.6 [facility] Comment on above: Performed By: #### C BC #### [place] [address] [place] #### RPR W RFX #### [facility] , Lymphocytes [#/volume] in Bl ood by Automated countOrdered By: EDE WAY on 02-13-2023 Lymphocytes (Bld) [#/Vol] 1.5 10*3/uL Normal 1.00-4.8 [facility] Comment on above: Performed By: #### C BC #### [facility] [address] [place] [address] [place] #### RPR W RFX #### [facility] , Lymphocytes/100 leukocytes i n Blood by Automated countOrdered By: EDE WAY on 02-13-2023 Lymphocytes/100 WBC (Bld) 16.2 % Normal . [facility] Comment on above: Performed By: #### C BC #### [place] [address] [place] #### RPR W RFX #### [facility] , MCH [Entitic mass] by Automa kee countOrdered By: EDE WAY on 02-13-2023 MCH (RBC) [Entitic mass] 25.6 pg Normal 24.7-34.3 [facility] Comment on above: Performed By: #### C BC #### [place] [address] [place] #### RPR W RFX #### [facility] , MCHC Auto (RBC) [Mass/Vol]Or dered By: EDE WAY on 02-13-2023 MCHC (RBC) [Mass/Vol] 33.8 g/dL 32.0-35.0 [facility] MCV [Entitic volume] by Auto mated countOrdered By: EDE WAY on 02-13-2023 MCV (RBC) [Entitic vol] 75.7 fL Low 80-100 [facility] Comment on above: Performed By: #### C BC #### [facility] [address] [place] [address] #### RPR W RFX #### [facility] , Neutrophils [#/volume] in Bl ood by Automated countOrdered By: EDE WAY on 02-13-2023 Neutrophils (Bld) [#/Vol] 6.7 10*3/uL Normal 1.8-7.7 [facility] Comment on above: Performed By: #### C BC #### [facility] [address] [place] [address] #### RPR W RFX #### [facility] , Nitrite Test strip Ql (U)Ord ered By: EDE WAY on 02-13-2023 Nitrite Ql (U) Negative Negative [facility] Nucleated erythrocytes [Pres ence] in Blood by Automated countOrdered By: EDE WAY on 02-13-2023 Nucleated RBC Auto Ql (Bld) 0.1 /100{WBC} 0-0.5 [facility] Platelet mean volume [Entiti c volume] in Blood by Automated countOrdered By: EDE WAY on 02-13-2023 Platelet mean volume (Bld) [Entitic vol] 8.5 fL Normal 6.3-10.7 [facility] Comment on above: Performed By: #### C BC #### [facility] [address] [place] [address] [place] #### RPR W RFX #### [facility] , Platelets [#/volume] in Bloo d by Automated countOrdered By: EDE WAY on 02-13-2023 Platelets (Bld) [#/Vol] 178 10*3/uL Normal 150-450 [facility] Comment on above: Performed By: #### C BC #### [facility] [address] [place] [address] #### RPR W RFX #### [facility] , RPR w/rfx to Quant TP Abson 02-13-2023 RPR, Rfx Quant RPR Non-Reactive Normal Non Reactive [facility] Comment on above: Result Comment: Perf ormed at: [facility] [place] [id number] [place] [id number] [employer] Sharpshooter: Sam Lopez PhD, Phone: [phone] PERFORMED BY: [place] [address] PATHOLOGIST ASSISTANT LIBRARIAN ALLA OROZCO M.D. Performed By: #### C BC #### [facility] [address] [place] [address] #### RPR W RFX #### [facility] , Reagin Ab [Presence] in Seru m by RPROrdered By: EDE WAY on 02-13-2023 Reagin Ab RPR Ql (S) Non-Reactive Non Reactive [facility] Comment on above: Performed at: [facility] [place] [id number] Director: Sam Lopez PhD, Phone: [phone] Specific gravity Auto test s trip (U) [Rel density]Ordered By: EDE WAY on 02-13-2023 Specific gravity (U) [Rel density] 1.015 1.001-1.03 0 [facility] Squamous epithelial cells de tection in urine sediment by light microscopyOrdered By: EDE WAY on 02-13-2023 Epithelial cells.squamous LM Ql (Urine sed) 3-4 [HPF] 0-2 [facility] Urine Cultureon 02-13-2023 Bacteria identified Cx Nom (U) No Growth 2 Days PERFORMED BY: [place] [address] PATHOLOGIST ASSISTANT LIBRARIAN ALLA OROZCO M.D. Normal [facility] Comment on above: Performed By: #### C USTB #### [facility] [address] [place] [address] Urine bacteria detection by automated methodOrdered By: EDE WAY on 02-13-2023 Bacteria Auto Ql (U) None seen None Seen [facility] Urine clarity by refractomet ry automatedOrdered By: EDE WAY on 02-13-2023 Clarity Refractometry automated (U) Clear Clear [facility] Urine culture routineOrdered By: EDE WAY on 02-13-2023 Bacteria identified Cx Nom (U) No Growth 2 Days [facility] Urine glucose measurement by automated test strip (mass/volume)Ordered By: EDE WAY on 02-13-2023 Glucose Auto test strip (U) [Mass/Vol] Normal mg/dL Normal [facility] Urine hemoglobin detection b y automated test stripOrdered By: EDE WAY on 02-13-2023 Hemoglobin Auto test strip Ql (U) 3+ Negative [facility] Urine leukocyte esterase det ection by automated test stripOrdered By: EDE WAY on 02-13-2023 Leukocyte esterase Auto test strip Ql (U) 1+ Negative [facility] Urine pH measurement by auto mated test stripOrdered By: EDE WAY on 02-13-2023 pH (U) 6.5 [pH] Normal 5.0-9.0 [facility] Comment on above: Order Comment: Name Collection Type:: Voided Performed By: #### C USTB #### [facility] [address] [place] [address] Urine protein measurement by automated test strip (mass/volume)Ordered By: EDE WAY on 02-13-2023 Protein (U) [Mass/Vol] 30 mg/dL High Negative [facility] Comment on above: Order Comment: Name Collection Type:: Voided Performed By: #### C USTB #### [facility] [address] Urobilinogen Auto test strip (U) [Mass/Vol]Ordered By: EDE WAY on 02-13-2023 Urobilinogen (U) [Mass/Vol] Normal mg/dL Normal [facility] Amphetamine Screen Ql (U)Ord ered By: Radha Molina on 02-01-2023 Amphetamines Ql (U) Negative Negative [facility] Automated erythrocytes count in urine sediment (number/area)Ordered By: Radha Molina on 02-01-2023 RBC Auto (Urine sed) [#/Area] 3-4 [HPF] 0-4 [facility] Automated leukocytes count i n urine sediment (number/area)Ordered By: Radha Molina on 02-01-2023 WBC Auto (Urine sed) [#/Area] 10-19 [HPF] 0-4 [facility] Automated urine color determ inationOrdered By: Radha Molina on 02-01-2023 Color (U) Yellow Normal Yellow [facility] Comment on above: Order Comment: Name Collection Type:: Clean-Voided Midstream Performed By: #### C USTB #### [facility] [address] Automated urine sediment esteban cium oxalate crystal count by microscopy (number/high powOrdered By: Radha Molina on 02-01-2023 Calcium oxalate crystals LM.HPF (Urine sed) [#/Area] 3+ [HPF] [facility] Barbiturates [Presence] in U rine by Screen methodOrdered By: Radha Molina on 02-01-2023 Barbiturates Screen Ql (U) Negative Negative [facility] Benzodiazepines Screen Ql (U )Ordered By: Radha Molina on 02-01-2023 Benzodiazepines Ql (U) Negative Negative [facility] Benzoylecgonine [Presence] i n Urine by Screen methodOrdered By: Radha Molina on 02-01-2023 Benzoylecgonine Screen Ql (U) Negative Negative [facility] Bilirubin Test strip Ql (U)O rdered By: Radha Molina on 02-01-2023 Bilirubin Ql (U) Negative Negative [facility] Dipstick and Microscopicon 1 04-04-2022 Appearance (U) Cloudy Critically abnormal Clear [facility] Comment on above: Order Comment: Name Collection Type:: Clean-Voided Midstream Performed By: #### C USTB #### [address] Bacteria,Urine 1+ High None Seen [facility] Comment on above: Order Comment: Name Collection Type:: Clean-Voided Midstream Performed By: #### C USTB #### [place] [address] [place] Bilirubin,Urine Negative Normal Negative [facility] Comment on above: Order Comment: Name Collection Type:: Clean-Voided Midstream Performed By: #### C USTB #### [address] Calcium Oxalate Crystals,Urine 3+ Normal [facility] Comment on above: Order Comment: Name Collection Type:: Clean-Voided Midstream Performed By: #### C USTB #### [address] Glucose Ql (U) Normal Normal Normal [facility] Comment on above: Order Comment: Name Collection Type:: Clean-Voided Midstream Performed By: #### C USTB #### [place] [address] [place] Hyaline Casts,Urine 0-8 Normal 0-8 [facility] Comment on above: Order Comment: Name Collection Type:: Clean-Voided Midstream Result Comment: PERF ORMED BY: [place] [address] PATHOLOGIST ASSISTANT LIBRARIAN ALLA OROZCO M.D. Performed By: #### C USTB #### [place] [address] [place] Ketones Ql (U) Trace High Negative [facility] Comment on above: Order Comment: Name Collection Type:: Clean-Voided Midstream Performed By: #### C USTB #### [place] [address] [place] Leukocyte esterase Test strip Ql (U) 2+ High Negative [facility] Comment on above: Order Comment: Name Collection Type:: Clean-Voided Midstream Performed By: #### C USTB #### [address] Nitrite,Urine Negative Normal Negative [facility] Comment on above: Order Comment: Name Collection Type:: Clean-Voided Midstream Performed By: #### C USTB #### [address] Occult Blood,Urine Negative Normal Negative [facility] Comment on above: Order Comment: Name Collection Type:: Clean-Voided Midstream Result Comment: PERF ORMED BY: [place] [address] PATHOLOGIST ASSISTANT LIBRARIAN ALLA OROZCO M.D. Performed By: #### C USTB #### [address] Othe Crystals,Urine None Seen Normal [facility] Comment on above: Order Comment: Name Collection Type:: Clean-Voided Midstream Performed By: #### C USTB #### [address] Protein,Urine Trace High Negative [facility] Comment on above: Order Comment: Name Collection Type:: Clean-Voided Midstream Performed By: #### C USTB #### [address] RBC,Urine 3-4 Normal 0-4 [facility] Comment on above: Order Comment: Name Collection Type:: Clean-Voided Midstream Performed By: #### C USTB #### [address] Specificy [place],Urine 1.025 Normal 1.001-1.03 0 [facility] Comment on above: Order Comment: Name Collection Type:: Clean-Voided Midstream Performed By: #### C USTB #### [address] Squamous Epithelial Cell,Urine 10-19 High 0-2 [facility] Comment on above: Order Comment: Name Collection Type:: Clean-Voided Midstream Performed By: #### C USTB #### [facility] [address] [place] [address] [place] Urobilinogen,Urine Normal Normal Normal [facility] Comment on above: Order Comment: Name Collection Type:: Clean-Voided Midstream Performed By: #### C USTB #### [facility] [address] [place] [address] [place] WBC,Urine 10-19 High 0-4 [facility] Comment on above: Order Comment: Name Collection Type:: Clean-Voided Midstream Performed By: #### C USTB #### [address] Ketones Auto test strip (U) [Mass/Vol]Ordered By: Radha Molina on 02-01-2023 Ketones (U) [Mass/Vol] Trace Negative [facility] Laboratory - UrinalysisOrder ed By: Radha Molina on 02-01-2023 Hyaline casts LM Ql (Urine sed) 0-8 [LPF] 0-8 [facility] Nitrite Test strip Ql (U)Ord ered By: Radha Molina on 02-01-2023 Nitrite Ql (U) Negative Negative [facility] OB Urine Drug Screen (NO THC )on 02-01-2023 Amphetamine Screen,Urine Negative Normal Negative [facility] Comment on above: Performed By: #### C USTB #### [facility] [address] [place] [address] [place] Barbiturate Screen,Urine Negative Normal Negative [facility] Comment on above: Performed By: #### C USTB #### [facility] [address] [place] [address] [place] Benzodiazepines Screen,Urine Negative Normal Negative [facility] Comment on above: Performed By: #### C USTB #### [address] Cocaine Screen,Urine Negative Normal Negative [facility] Comment on above: Performed By: #### C USTB #### [facility] [address] Opiate Screen,Urine Negative Normal Negative [facility] Comment on above: Performed By: #### C USTB #### [address] Phencyclidine Screen, Urine Negative Normal Negative [facility] Comment on above: Result Comment: Thes e are unconfirmed results and should not be used for legal purposes. Drug Cut-Off Concentration: AMPH 1000 ng/mL FAVIOLA 200 ng/mL THA 200 ng/mL COCM 300 ng/mL OP 300 ng/mL PCP 25 ng/mL PERFORMED BY: [place] [address] PATHOLOGIST ASSISTANT LIBRARIAN ALLA OROZCO M.D. Performed By: #### C USTB #### [address] Opiates [Presence] in Urine by Screen methodOrdered By: Radha Molina on 02-01-2023 Opiates Screen Ql (U) Negative Negative [facility] Phencyclidine Screen Ql (U)O rdered By: Radha Molina on 02-01-2023 Phencyclidine Ql (U) Negative Negative [facility] Comment on above: These are unconfirme d results and should not be used for legal purposes. Drug Cut-Off Concentration: AMPH 1000 ng/mL FAVIOLA 200 ng/mL THA 200 ng/mL COCM 300 ng/mL OP 300 ng/mL PCP 25 ng/mL Protein Auto test strip (U) [Mass/Vol]Ordered By: Radha Molina on 02-01-2023 Protein (U) [Mass/Vol] Trace mg/dL Negative F [facility] Specific gravity Auto test s trip (U) [Rel density]Ordered By: Radha Molina on 02-01-2023 Specific gravity (U) [Rel density] 1.025 1.001-1.03 0 [facility] Squamous epithelial cells de tection in urine sediment by light microscopyOrdered By: Radha Molina on 02-01-2023 Epithelial cells.squamous LM Ql (Urine sed) 10-19 [HPF] 0-2 [facility] Urine Cultureon 02-01-2023 Bacteria identified Cx Nom (U) <9,000 colonies/ml mixed bacterial skin contaminants 2 Days PERFORMED BY: [place] [address] PATHOLOGIST ASSISTANT LIBRARIAN ALLA OROZCO M.D. Normal [facility] Comment on above: Performed By: #### C USTB #### [facility] [address] [place] [address] Urine bacteria detection by automated methodOrdered By: Radha Molina on 02-01-2023 Bacteria Auto Ql (U) 1+ None Seen [facility] Urine clarity by refractomet ry automatedOrdered By: Radha Molina on 02-01-2023 Clarity Refractometry automated (U) Cloudy Clear [facility] Urine culture routineOrdered By: Radha Molina on 02-01-2023 Bacteria identified Cx Nom (U) 2 Days [facility] Urine glucose measurement by automated test strip (mass/volume)Ordered By: Radha Molina on 02-01-2023 Glucose Auto test strip (U) [Mass/Vol] Normal mg/dL Normal [facility] Urine hemoglobin detection b y automated test stripOrdered By: Radha Molina on 02-01-2023 Hemoglobin Auto test strip Ql (U) Negative Negative [facility] Urine leukocyte esterase det ection by automated test stripOrdered By: Radha Molina on 02-01-2023 Leukocyte esterase Auto test strip Ql (U) 2+ Negative [facility] Urine pH measurement by auto mated test stripOrdered By: Radha Molina on 02-01-2023 pH (U) 6.0 [pH] Normal 5.0-9.0 [facility] Comment on above: Order Comment: Name Collection Type:: Clean-Voided Midstream Performed By: #### C USTB #### [facility] [address] [place] [address] Urine sediment crystal ident ification by light microscopyOrdered By: Radha Molina on 02-01-2023 Crystals LM Nom (Urine sed) None seen [HPF] [facility] Urobilinogen Auto test strip (U) [Mass/Vol]Ordered By: Radha Molina on 02-01-2023 Urobilinogen (U) [Mass/Vol] Normal mg/dL Normal [facility] Amphetamine Screen Ql (U)Ord ered By: MARY KAY CANTU on 01-30-2023 Amphetamines Ql (U) Negative Negative [facility] Automated erythrocytes count in urine sediment (number/area)Ordered By: MARY KAY CANTU on 01-30-2023 RBC Auto (Urine sed) [#/Area] 0-1 [HPF] 0-4 [facility] Automated leukocytes count i n urine sediment (number/area)Ordered By: MARY KAY CANTU on 01-30-2023 WBC Auto (Urine sed) [#/Area] 3-4 [HPF] 0-4 [facility] Automated urine color determ inationOrdered By: MARY KAY CANTU on 01-30-2023 Color (U) Yellow Normal Yellow [facility] Comment on above: Order Comment: Name Collection Type:: Clean-Voided Midstream Performed By: #### O BUDS, ADDONUAPLUS #### [address] Barbiturates [Presence] in U rine by Screen methodOrdered By: MARY KAY CANTU on 01-30-2023 Barbiturates Screen Ql (U) Negative Negative [facility] Benzodiazepines Screen Ql (U )Ordered By: MARY KAY CANTU on 01-30-2023 Benzodiazepines Ql (U) Negative Negative [facility] Benzoylecgonine [Presence] i n Urine by Screen methodOrdered By: MARY KAY CANTU on 01-30-2023 Benzoylecgonine Screen Ql (U) Negative Negative [facility] Bilirubin Test strip Ql (U)O rdered By: MARY KAY CANTU on 01-30-2023 Bilirubin Ql (U) Negative Negative [facility] Dipstick and Microscopicon 1 04-02-2022 Appearance (U) Clear Normal Clear [facility] Comment on above: Order Comment: Name Collection Type:: Clean-Voided Midstream Performed By: #### O BUDS, ADDONUAPLUS #### [place] [address] [place] Bacteria,Urine None Seen Normal None Seen [facility] Comment on above: Order Comment: Name Collection Type:: Clean-Voided Midstream Performed By: #### O BUDS, ADDONUAPLUS #### [address] Bilirubin,Urine Negative Normal Negative [facility] Comment on above: Order Comment: Name Collection Type:: Clean-Voided Midstream Performed By: #### O BUDS, ADDONUAPLUS #### [place] [address] [place] Glucose Ql (U) Normal Normal Normal [facility] Comment on above: Order Comment: Name Collection Type:: Clean-Voided Midstream Performed By: #### O BUDS, ADDONUAPLUS #### [place] [address] [place] Hyaline Casts,Urine 0-8 Normal 0-8 [facility] Comment on above: Order Comment: Name Collection Type:: Clean-Voided Midstream Result Comment: PERF ORMED BY: [place] [address] PATHOLOGIST ASSISTANT LIBRARIAN ALLA OROZCO M.D. Performed By: #### O BUDS, ADDONUAPLUS #### [address] Ketones Ql (U) Negative Normal Negative [facility] Comment on above: Order Comment: Name Collection Type:: Clean-Voided Midstream Performed By: #### O BUDS, ADDONUAPLUS #### [place] [address] [place] Leukocyte esterase Test strip Ql (U) 2+ High Negative [facility] Comment on above: Order Comment: Name Collection Type:: Clean-Voided Midstream Performed By: #### O BUDS, ADDONUAPLUS #### [place] [address] [place] Nitrite,Urine Negative Normal Negative [facility] Comment on above: Order Comment: Name Collection Type:: Clean-Voided Midstream Performed By: #### O BUDS, ADDONUAPLUS #### [place] [address] [place] Occult Blood,Urine Negative Normal Negative [facility] Comment on above: Order Comment: Name Collection Type:: Clean-Voided Midstream Result Comment: PERF ORMED BY: [place] [address] PATHOLOGIST ASSISTANT LIBRARIAN ALLA OROZCO M.D. Performed By: #### O BUDS, ADDONUAPLUS #### [address] Protein,Urine Negative Normal Negative [facility] Comment on above: Order Comment: Name Collection Type:: Clean-Voided Midstream Performed By: #### O BUDS, ADDONUAPLUS #### [place] [address] [place] RBC LM.HPF (Urine sed) [#/Area] 0 /[HPF] Normal 0-4 [facility] Comment on above: Order Comment: Name Collection Type:: Clean-Voided Midstream Performed By: #### O BUDS, ADDONUAPLUS #### [place] [address] [place] Specificy [place],Urine 1.017 Normal 1.001-1.03 0 [facility] Comment on above: Order Comment: Name Collection Type:: Clean-Voided Midstream Performed By: #### O BUDS, ADDONUAPLUS #### [place] [address] [place] Squamous Epithelial Cell,Urine 1-2 Normal 0-2 [facility] Comment on above: Order Comment: Name Collection Type:: Clean-Voided Midstream Performed By: #### O BUDS, ADDONUAPLUS #### [place] [address] [place] Urobilinogen,Urine Normal Normal Normal [facility] Comment on above: Order Comment: Name Collection Type:: Clean-Voided Midstream Performed By: #### O BUDS, ADDONUAPLUS #### [place] [address] [place] WBC,Urine 3-4 Normal 0-4 [facility] Comment on above: Order Comment: Name Collection Type:: Clean-Voided Midstream Performed By: #### O BUDS, ADDONUAPLUS #### [address] Ketones Auto test strip (U) [Mass/Vol]Ordered By: MARY KAY CANTU on 01-30-2023 Ketones (U) [Mass/Vol] Negative Negative [facility] - UrinalysisOrder ed By: MARY KAY CANTU on 01-30-2023 Hyaline casts LM Ql (Urine sed) 0-8 [LPF] 0-8 [facility] Nitrite Test strip Ql (U)Ord ered By: MARY KAY CANTU on 01-30-2023 Nitrite Ql (U) Negative Negative [facility] OB Urine Drug Screen (NO THC )on 01-30-2023 Amphetamine Screen,Urine Negative Normal Negative [facility] Comment on above: Performed By: #### O BUDS, ADDONUAPLUS #### [place] [address] [place] Barbiturate Screen,Urine Negative Normal Negative [facility] Comment on above: Performed By: #### O BUDS, ADDONUAPLUS #### [place] [address] [place] Benzodiazepines Screen,Urine Negative Normal Negative [facility] Comment on above: Performed By: #### O BUDS, ADDONUAPLUS #### [place] [address] [place] Cocaine Screen,Urine Negative Normal Negative [facility] Comment on above: Performed By: #### O BUDS, ADDONUAPLUS #### [place] [address] [place] Opiate Screen,Urine Negative Normal Negative [facility] Comment on above: Performed By: #### O BUDS, ADDONUAPLUS #### [place] [address] [place] Phencyclidine Screen, Urine Negative Normal Negative [facility] Comment on above: Result Comment: Thes e are unconfirmed results and should not be used for legal purposes. Drug Cut-Off Concentration: AMPH 1000 ng/mL FAVIOLA 200 ng/mL THA 200 ng/mL COCM 300 ng/mL OP 300 ng/mL PCP 25 ng/mL PERFORMED BY: [place] [address] PATHOLOGIST ASSISTANT LIBRARIAN ALLA OROZCO M.D. Performed By: #### O BUDS, ADDONUAPLUS #### [address] Opiates [Presence] in Urine by Screen methodOrdered By: MARY KAY CANTU on 01-30-2023 Opiates Screen Ql (U) Negative Negative [facility] Phencyclidine Screen Ql (U)O rdered By: MARY KAY CANTU on 01-30-2023 Phencyclidine Ql (U) Negative Negative [facility] Comment on above: These are unconfirme d results and should not be used for legal purposes. Drug Cut-Off Concentration: AMPH 1000 ng/mL FAVIOLA 200 ng/mL THA 200 ng/mL COCM 300 ng/mL OP 300 ng/mL PCP 25 ng/mL Protein Auto test strip (U) [Mass/Vol]Ordered By: MARY KAY CANTU on 01-30-2023 Protein (U) [Mass/Vol] Negative Negative [facility] Specific gravity Auto test s trip (U) [Rel density]Ordered By: MARY KAY CANTU on 01-30-2023 Specific gravity (U) [Rel density] 1.017 1.001-1.03 0 [facility] Squamous epithelial cells de tection in urine sediment by light microscopyOrdered By: MARY KAY CANTU on 01-30-2023 Epithelial cells.squamous LM Ql (Urine sed) 1-2 [HPF] 0-2 [facility] Urine bacteria detection by automated methodOrdered By: MARY KAY CANTU on 01-30-2023 Bacteria Auto Ql (U) None seen None Seen [facility] Urine clarity by refractomet ry automatedOrdered By: MARY KAY CANTU on 01-30-2023 Clarity Refractometry automated (U) Clear Clear [facility] Urine glucose measurement by automated test strip (mass/volume)Ordered By: MARY KAY CANTU on 01-30-2023 Glucose Auto test strip (U) [Mass/Vol] Normal mg/dL Normal [facility] Urine hemoglobin detection b y automated test stripOrdered By: MARY KAY CANTU on 01-30-2023 Hemoglobin Auto test strip Ql (U) Negative Negative [facility] Urine leukocyte esterase det ection by automated test stripOrdered By: MARY KAY CANTU on 01-30-2023 Leukocyte esterase Auto test strip Ql (U) 2+ Negative [facility] Urine pH measurement by auto mated test stripOrdered By: MARY KAY CANTU on 01-30-2023 pH (U) 6.5 [pH] Normal 5.0-9.0 [facility] Comment on above: Order Comment: Name Collection Type:: Clean-Voided Midstream Performed By: #### O BUDS, ADDONUAPLUS #### [place] [address] [place] Urobilinogen Auto test strip (U) [Mass/Vol]Ordered By: MARY KAY CANTU on 01-30-2023 Urobilinogen (U) [Mass/Vol] Normal mg/dL Normal [facility] S. agalactiae Org specific c x Ql (Unsp spec)Ordered By: Radha Molina on 01-05-2023 Group B Streptococcus Culture Strep. agalactiae Grp B [facility] Strep B Cultureon 01-05-2023 Strep B Culture ORGANISM: Strep. agalactiae Grp B (O:B) PERFORMED BY: [place] [address] PATHOLOGIST ASSISTANT LIBRARIAN ALLA OROZCO M.D. Normal [facility] Comment on above: Performed By: #### C USTB #### [facility] [address] [place] [address] Glucose Tolerance 3 Houron 1 02-21-2022 Glucose [...] HOUR NOT ESTABLISHED < 140 PERFORMED BY: [facility] [address] [place] [address] PATHOLOGIST ASSISTANT LIBRARIAN ALLA OROZCO M.D. Performed By: #### G TT3 #### [address] Serum or plasma glucose tole nabeel 3 hours panelOrdered By: Radha Molina on 12-22-2022 Glucose tolerance 3 hours panel See comment [facility] Comment on above: FASTING 88 Col: 09/06 0803 1HR GLU 146 Col: 12/22/22 1017 2HR GLU 126 Col: 12/22/22 1117 3HR GLU 144 Col: 12/22/22 1217 fibronectinOrdered By: Radha Molina on 12-08-2022 Fibronectin. (Vag fld) [Mass/Vol] Negative Negative [facility] Alanine aminotransferase [En zymatic activity/volume] in Serum or PlasmaOrdered By: Nataly Toure on 12-03-2022 ALT [Catalytic activity/Vol] 7 U/L 7-52 [facility] Albumin [Mass/volume] in Ser um or Plasma by Bromocresol green (BCG) dye binding methoOrdered By: Nataly Toure on 12-03-2022 Albumin BCG dye [Mass/Vol] 3.4 g/dL 3.5-5.7 [facility] Alkaline phosphatase [Enzyma tic activity/volume] in Serum or PlasmaOrdered By: Nataly Toure on 12-03-2022 ALP [Catalytic activity/Vol] 79 U/L 34-104 [facility] Aspartate aminotransferase [ Enzymatic activity/volume] in Serum or PlasmaOrdered By: Nataly Toure on 12-03-2022 AST [Catalytic activity/Vol] 9 U/L 13-39 [facility] Basophils Auto (Bld) [#/Vol] Ordered By: Nataly Toure on 12-03-2022 Basophils (Bld) [#/Vol] 0.0 10*3/uL 0.0-0.2 [facility] Basophils/100 WBC Auto (Bld) Ordered By: Nataly Toure on 12-03-2022 Basophils/100 WBC (Bld) 0.1 % . [facility] Bilirubin.total [Mass/volume ] in Serum or PlasmaOrdered By: Nataly Toure on 12-03-2022 Bilirubin [Mass/Vol] 0.2 mg/dL 0.3-1.0 [facility] Calcium [Mass/volume] in Ser um or PlasmaOrdered By: Nataly Toure on 12-03-2022 Calcium [Mass/Vol] 8.9 mg/dL 8.6-10.3 [facility] Carbon dioxide, total [Moles /volume] in Serum or PlasmaOrdered By: Nataly Touer on 12-03-2022 CO2 [Moles/Vol] 21.9 mmol/L 21.0-31.0 [facility] Chloride [Moles/volume] in S rosa or PlasmaOrdered By: Nataly Toure on 12-03-2022 Chloride [Moles/Vol] 102 mmol/L 98-107 [facility] Creatinine [Mass/volume] in Serum or PlasmaOrdered By: Nataly Toure on 12-03-2022 Creatinine [Mass/Vol] 0.49 mg/dL 0.60-1.20 [facility] Eosinophils Auto (Bld) [#/Vo l]Ordered By: Nataly Toure on 12-03-2022 Eosinophils (Bld) [#/Vol] 0.0 10*3/uL 0.0-0.45 [facility] Eosinophils/100 WBC Auto (Bl d)Ordered By: Nataly Toure on 12-03-2022 Eosinophils/100 WBC (Bld) 0.3 % . [facility] Erythrocyte distribution wid th Auto (RBC) [Ratio]Ordered By: Nataly Toure on 12-03-2022 Erythrocyte distribution width (RBC) [Ratio] 14.4 % 11.9-15.3 [facility] Globulin Calc (S) [Mass/Vol] Ordered By: Nataly Toure on 12-03-2022 Globulin (S) [Mass/Vol] 3.3 g/dL [facility] Glucose [Mass/volume] in Ser um or PlasmaOrdered By: Nataly Toure on 12-03-2022 Glucose [Mass/Vol] 94 mg/dL 70-100 [facility] Comment on above: ADA recommended refe rence rangeRandom Glucose Reference Range is dependent on time and content of last meal. Glucose of more than 200 mg/dL in a nonstressed, ambulatory subject supports the diagnosis of Diabetes Mellitus. Hematocrit Auto (Bld) [Volum e fraction]Ordered By: Nataly Toure on 12-03-2022 Hematocrit (Bld) [Volume fraction] 33.8 % 34.0-46.4 [facility] Hemoglobin [Mass/volume] in BloodOrdered By: Nataly Toure on 12-03-2022 Hemoglobin (Bld) [Mass/Vol] 11.0 g/dL 11.8-15.4 [facility] Iron [Mass/volume] in Serum or PlasmaOrdered By: Nataly Toure on 12-03-2022 Iron [Mass/Vol] 38 ug/dL 50-212 [facility] Iron binding capacity [Mass/ volume] in Serum or PlasmaOrdered By: Nataly Toure on 12-03-2022 Iron binding capacity [Mass/Vol] 587 ug/dL 255-450 [facility] Iron saturation [Mass Fracti on] in Serum or PlasmaOrdered By: Nataly Toure on 12-03-2022 Iron saturation [Mass fraction] 6.5 % 20-50 [facility] Leukocytes [#/volume] correc kee for nucleated erythrocytes in Blood by Automated counOrdered By: Nataly Toure on 12-03-2022 WBC corrected for nucl RBC Auto (Bld) [#/Vol] 11.2 10*3/uL 3.8-11.6 [facility] Lymphocytes Auto (Bld) [#/Vo l]Ordered By: Nataly Toure on 12-03-2022 Lymphocytes (Bld) [#/Vol] 1.8 10*3/uL 1.00-4.8 [facility] Lymphocytes/100 WBC Auto (Bl d)Ordered By: Nataly Toure on 12-03-2022 Lymphocytes/100 WBC (Bld) 16.0 % . [facility] MCH Auto (RBC) [Entitic mass ]Ordered By: Nataly Toure on 12-03-2022 MCH (RBC) [Entitic mass] 26.0 pg 24.7-34.3 [facility] MCHC Auto (RBC) [Mass/Vol]Or dered By: Nataly Toure on 12-03-2022 MCHC (RBC) [Mass/Vol] 32.5 g/dL 32.0-35.0 [facility] MCV Auto (RBC) [Entitic vol] Ordered By: Nataly Toure on 12-03-2022 MCV (RBC) [Entitic vol] 80.1 fL 80-100 [facility] Magnesium [Mass/volume] in S rosa or PlasmaOrdered By: Nataly Toure on 12-03-2022 Magnesium [Mass/Vol] 1.7 mg/dL 1.9-2.7 [facility] Monocytes Auto (Bld) [#/Vol] Ordered By: Nataly Toure on 12-03-2022 Monocytes (Bld) [#/Vol] 0.8 10*3/uL 0.0-0.8 [facility] Monocytes/100 WBC Auto (Bld) Ordered By: Nataly Toure on 12-03-2022 Monocytes/100 WBC (Bld) 6.9 % . [facility] Neutrophils Auto (Bld) [#/Vo l]Ordered By: Nataly Toure on 12-03-2022 Neutrophils (Bld) [#/Vol] 8.6 10*3/uL 1.8-7.7 [facility] Neutrophils/100 WBC Auto (Bl d)Ordered By: Nataly Toure on 12-03-2022 Neutrophils/100 WBC (Bld) 76.7 % . [facility] No Panel InformationOrdered By: Nataly Toure on 12-03-2022 Estimated GFR (CKD-EPI) > 60.0 mL/Min [facility] Creatinine Clearance (Chem N/A [facility] Nucleated erythrocytes [Pres ence] in Blood by Automated countOrdered By: Nataly Toure on 12-03-2022 Nucleated RBC Auto Ql (Bld) 0.0 /100{WBC} 0-0.5 [facility] Platelet mean volume Auto (B ld) [Entitic vol]Ordered By: Nataly Toure on 12-03-2022 Platelet mean volume (Bld) [Entitic vol] 9.0 fL 6.3-10.7 [facility] Platelets Auto (Bld) [#/Vol] Ordered By: Nataly Jerniganc on 12-03-2022 Platelets (Bld) [#/Vol] 205 10*3/uL 150-450 [facility] Potassium [Moles/volume] in Serum or PlasmaOrdered By: Nataly Toure on 12-03-2022 Potassium [Moles/Vol] 3.8 mmol/L 3.5-5.1 [facility] Protein [Mass/volume] in Ser um or PlasmaOrdered By: Nataly Toure on 12-03-2022 Protein [Mass/Vol] 6.7 g/dL 6.4-8.9 [facility] RBC Auto (Bld) [#/Vol]Ordere d By: Nataly Toure on 12-03-2022 RBC (Bld) [#/Vol] 4.22 10*6/uL 3.60-5.00 [facility] Serum or plasma albumin/glob ulin mass ratioOrdered By: Nataly Toure on 12-03-2022 Albumin/Globulin [Mass ratio] 1.0 {ratio} [facility] Serum or plasma anion gap de terminationOrdered By: Nataly Toure on 12-03-2022 Anion gap [Moles/Vol] 17.9 mmol/L 6.0-15.0 [facility] Sodium [Moles/volume] in Ser um or PlasmaOrdered By: Nataly Toure on 12-03-2022 Sodium [Moles/Vol] 138 mmol/L 136-145 [facility] Thyrotropin [Units/volume] i n Serum or PlasmaOrdered By: Nataly Toure on 12-03-2022 TSH Qn 2.65 m[IU]/L 0.45-5.33 [facility] Transferrin [Mass/volume] in Serum or PlasmaOrdered By: Nataly Toure on 12-03-2022 Transferrin [Mass/Vol] 419 mg/dL 203-362 [facility] Urea nitrogen [Mass/volume] in Serum or PlasmaOrdered By: Nataly Toure on 12-03-2022 Urea nitrogen [Mass/Vol] 11 mg/dL 7-25 [facility] WBC Auto (Bld) [#/Vol]Ordere d By: Nataly Toure on 12-03-2022 WBC (Bld) [#/Vol] 11.2 10*3/uL 3.8-11.6 [facility] Activated partial thrombopla stin time (aPTT) in platelet poor plasma by coagulation aOrdered By: Staci Ortiz on 12-01-2022 aPTT Coag (PPP) [Time] 26.8 s 25.1-36.5 [facility] Comment on above: A hematocrit value g reater than 55% may lead to inaccurate results in coagulation testing. Patients having hematocrit values >55% require a special collection tube for coagulation studies. Please contact the laboratory at [phone] for redraw instructions. Automated erythrocytes count in urine sediment (number/area)Ordered By: Staci Ortiz on 12-01-2022 RBC Auto (Urine sed) [#/Area] 0-1 [HPF] 0-4 [facility] Automated leukocytes count i n urine sediment (number/area)Ordered By: Staci Ortiz on 12-01-2022 WBC Auto (Urine sed) [#/Area] 3-4 [HPF] 0-4 [facility] Basophils Auto (Bld) [#/Vol] Ordered By: Staci Ortiz on 12-01-2022 Basophils (Bld) [#/Vol] 0.0 10*3/uL 0.0-0.2 [facility] Basophils/100 WBC Auto (Bld) Ordered By: Staci Ortiz on 12-01-2022 Basophils/100 WBC (Bld) 0.3 % . [facility] Bilirubin Test strip Ql (U)O rdered By: Staci Ortiz on 12-01-2022 Bilirubin Ql (U) Negative Negative [facility] COVID CepheidOrdered By: Cou rtkristofer Ortiz on 12-01-2022 SARS-CoV-2 (COVID-19) Ab IA Ql Negative Negative [facility] Comment on above: This is a duplicate Cepheid Xpert Xpress CoV-2/Flu/RSV Plus RNA by RT-PCR result to be used for statistical tracking purpose only. COVID-19 Detected/Not Detect edOrdered By: Staci Ortiz on 12-01-2022 SARS-CoV-2 (COVID-19) RNA SVETLANA+non-probe Ql (Nph) Not detected Not Detecte [facility] Comment on above: This is a duplicate RP2.1 COVID (PCR) result to be used for statistical tracking purpose only. Calcium [Mass/volume] in Ser um or PlasmaOrdered By: Staci Ortiz on 12-01-2022 Calcium [Mass/Vol] 9.1 mg/dL 8.6-10.3 [facility] Carbon dioxide, total [Moles /volume] in Serum or PlasmaOrdered By: Staci Ortiz on 12-01-2022 CO2 [Moles/Vol] 22.4 mmol/L 21.0-31.0 [facility] Chloride [Moles/volume] in S rosa or PlasmaOrdered By: Staci Ortiz on 12-01-2022 Chloride [Moles/Vol] 102 mmol/L 98-107 [facility] Color Auto (U)Ordered By: Elizabeth Ortiz on 12-01-2022 Color (U) Yellow Yellow [facility] Creatinine [Mass/volume] in Serum or PlasmaOrdered By: Staci Ortiz on 12-01-2022 Creatinine [Mass/Vol] 0.51 mg/dL 0.60-1.20 [facility] Eosinophils Auto (Bld) [#/Vo l]Ordered By: Staci Ortiz on 12-01-2022 Eosinophils (Bld) [#/Vol] 0.0 10*3/uL 0.0-0.45 [facility] Eosinophils/100 WBC Auto (Bl d)Ordered By: Staci Ortiz on 12-01-2022 Eosinophils/100 WBC (Bld) 0.4 % . [facility] Erythrocyte distribution wid th Auto (RBC) [Ratio]Ordered By: Staci Ortiz on 12-01-2022 Erythrocyte distribution width (RBC) [Ratio] 14.5 % 11.9-15.3 [facility] Fibrin D-dimer [Presence] in Platelet poor plasma by Latex agglutinationOrdered By: Staci Ortiz on 12-01-2022 Fibrin D-dimer LA Ql (PPP) 231 ng/mL 0-243 [facility] Comment on above: The reference [...] coagulation studies. Please contact the laboratory at [phone] for redraw instructions. Glucose [Mass/volume] in Ser um or PlasmaOrdered By: Staci Ortiz on 12-01-2022 Glucose [Mass/Vol] 88 mg/dL 70-100 [facility] Comment on above: ADA recommended refe rence rangeRandom Glucose Reference Range is dependent on time and content of last meal. Glucose of more than 200 mg/dL in a nonstressed, ambulatory subject supports the diagnosis of Diabetes Mellitus. HCG ( test) IA.rapi d Ql (U)Ordered By: Staci Ortiz on 12-01-2022 HCG ( test) Ql (U) Positive [facility] Hematocrit Auto (Bld) [Volum e fraction]Ordered By: Staci Ortiz on 12-01-2022 Hematocrit (Bld) [Volume fraction] 34.2 % 34.0-46.4 [facility] Hemoglobin [Mass/volume] in BloodOrdered By: Staci Ortiz on 10-17-2023 Hemoglobin (Bld) [Mass/Vol] 11.3 g/dL 11.8-15.4 [facility] INR in Platelet poor plasma by Coagulation assayOrdered By: Staci Ortiz on 12-01-2022 INR Coag (PPP) [Relative time] 0.9 {INR} [facility] Comment on above: INR Therapeutic [...] on 12-01-2022 Ketones (U) [Mass/Vol] Negative Negative [facility] - UrinalysisOrder ed By: Staci Ortiz on 12-01-2022 Hyaline casts LM Ql (Urine sed) 0-8 [LPF] 0-8 [facility] Leukocytes [#/volume] correc kee for nucleated erythrocytes in Blood by Automated counOrdered By: Staci Ortiz on 12-01-2022 WBC corrected for nucl RBC Auto (Bld) [#/Vol] 12.1 10*3/uL 3.8-11.6 [facility] Lymphocytes Auto (Bld) [#/Vo l]Ordered By: Staci Ortiz on 12-01-2022 Lymphocytes (Bld) [#/Vol] 1.8 10*3/uL 1.00-4.8 [facility] Lymphocytes/100 WBC Auto (Bl d)Ordered By: Staci Ortiz on 12-01-2022 Lymphocytes/100 WBC (Bld) 14.9 % . [facility] MCH Auto (RBC) [Entitic mass ]Ordered By: Staci Ortiz on 12-01-2022 MCH (RBC) [Entitic mass] 26.4 pg 24.7-34.3 [facility] MCHC Auto (RBC) [Mass/Vol]Or dered By: Staci Ortiz on 12-01-2022 MCHC (RBC) [Mass/Vol] 33.1 g/dL 32.0-35.0 [facility] MCV Auto (RBC) [Entitic vol] Ordered By: Staci Ortiz on 12-01-2022 MCV (RBC) [Entitic vol] 79.7 fL 80-100 [facility] Monocyte distribution width [Entitic volume] in Blood by AutomatedOrdered By: Staci Ortiz on 12-01-2022 Monocyte distribution width Auto (Bld) [Entitic vol] 16.82 % 0.00-20.00 [facility] Monocytes Auto (Bld) [#/Vol] Ordered By: Staci Ortiz on 12-01-2022 Monocytes (Bld) [#/Vol] 0.9 10*3/uL 0.0-0.8 [facility] Monocytes/100 WBC Auto (Bld) Ordered By: Staci Ortiz on 12-01-2022 Monocytes/100 WBC (Bld) 7.6 % . [facility] Natriuretic peptide B [Mass/ Vol]Ordered By: Staci Ortiz on 12-01-2022 Natriuretic peptide B (Bld) [Mass/Vol] 10.0 pg/mL 5-100 [facility] Neutrophils Auto (Bld) [#/Vo l]Ordered By: Staci Ortiz on 12-01-2022 Neutrophils (Bld) [#/Vol] 9.3 10*3/uL 1.8-7.7 [facility] Neutrophils/100 WBC Auto (Bl d)Ordered By: Staci Ortiz on 12-01-2022 Neutrophils/100 WBC (Bld) 76.8 % . [facility] Nitrite Test strip Ql (U)Ord ered By: Staci Ortiz on 12-01-2022 Nitrite Ql (U) Negative Negative [facility] No Panel InformationOrdered By: Staci Ortiz on 12-01-2022 Estimated GFR (CKD-EPI) > 60.0 mL/Min [facility] Creatinine Clearance (Chem 194.78 [facility] Nucleated erythrocytes [Pres ence] in Blood by Automated countOrdered By: Staci Ortiz on 12-01-2022 Nucleated RBC Auto Ql (Bld) 0.0 /100{WBC} 0-0.5 [facility] Platelet mean volume Auto (B ld) [Entitic vol]Ordered By: Staci Ortiz on 12-01-2022 Platelet mean volume (Bld) [Entitic vol] 8.8 fL 6.3-10.7 [facility] Platelets Auto (Bld) [#/Vol] Ordered By: Staci Ortiz on 12-01-2022 Platelets (Bld) [#/Vol] 212 10*3/uL 150-450 [facility] Potassium [Moles/volume] in Serum or PlasmaOrdered By: Staci Ortiz on 12-01-2022 Potassium [Moles/Vol] 3.7 mmol/L 3.5-5.1 [facility] Protein Auto test strip (U) [Mass/Vol]Ordered By: Staci Ortiz on 12-01-2022 Protein (U) [Mass/Vol] Negative Negative [facility] Prothrombin time (PT)Ordered By: Staci Ortiz on 12-01-2022 PT Coag (PPP) [Time] 11.3 s 9.0-12.9 [facility] Comment on above: A hematocrit value g reater than 55% may lead to inaccurate results in coagulation testing. Patients having hematocrit values >55% require a special collection tube for coagulation studies. Please contact the laboratory at [phone] for redraw instructions. RBC Auto (Bld) [#/Vol]Ordere d By: Staci Ortiz on 12-01-2022 RBC (Bld) [#/Vol] 4.29 10*6/uL 3.60-5.00 [facility] Respiratory pathogens DNA an d RNA panel - Nasopharynx by SVETLANA with non-probe detectionOrdered By: Staci Ortiz on 12-01-2022 Respiratory pathogens DNA and RNA panel SVETLANA+non-probe (Nph) [facility] Respiratory pathogens DNA and RNA panel SVETLANA+non-probe (Nph) [facility] Serum or plasma anion gap de terminationOrdered By: Staci Ortiz on 12-01-2022 Anion gap [Moles/Vol] 13.3 mmol/L 6.0-15.0 [facility] Sodium [Moles/volume] in Ser um or PlasmaOrdered By: Staci Ortiz on 12-01-2022 Sodium [Moles/Vol] 134 mmol/L 136-145 [facility] Specific gravity Auto test s trip (U) [Rel density]Ordered By: Staci Ortiz on 12-01-2022 Specific gravity (U) [Rel density] 1.021 1.001-1.03 0 [facility] Squamous epithelial cells de tection in urine sediment by light microscopyOrdered By: Staci Ortiz on 12-01-2022 Epithelial cells.squamous LM Ql (Urine sed) 5-9 [HPF] 0-2 [facility] Troponin I.cardiac [Mass/vol ume] in Serum or Plasma by Detection limit <= 0.01 ng/Ordered By: Staci Ortiz on 12-01-2022 Troponin I.cardiac DL <= 0.01 ng/mL [Mass/Vol] < 2.3 pg/mL 0.0-15.0 [facility] Urea nitrogen [Mass/volume] in Serum or PlasmaOrdered By: Staci Ortiz on 12-01-2022 Urea nitrogen [Mass/Vol] 9 mg/dL 7-25 [facility] Urine bacteria detection by automated methodOrdered By: Staci Ortiz on 12-01-2022 Bacteria Auto Ql (U) None seen None Seen [facility] Urine clarity by refractomet ry automatedOrdered By: Staci Ortiz on 12-01-2022 Clarity Refractometry automated (U) Cloudy Clear [facility] Urine glucose measurement by automated test strip (mass/volume)Ordered By: Staci Ortiz on 12-01-2022 Glucose Auto test strip (U) [Mass/Vol] Normal mg/dL Normal [facility] Urine hemoglobin detection b y automated test stripOrdered By: Staci Ortiz on 12-01-2022 Hemoglobin Auto test strip Ql (U) Negative Negative [facility] Urine leukocyte esterase det ection by automated test stripOrdered By: Staci Ortiz on 12-01-2022 Leukocyte esterase Auto test strip Ql (U) 1+ Negative [facility] Urobilinogen Auto test strip (U) [Mass/Vol]Ordered By: Staci Ortiz on 12-01-2022 Urobilinogen (U) [Mass/Vol] Normal mg/dL Normal [facility] WBC Auto (Bld) [#/Vol]Ordere d By: Staci Ortiz on 12-01-2022 WBC (Bld) [#/Vol] 12.1 10*3/uL 3.8-11.6 [facility] pH Auto test strip (U)Ordere d By: Staci Ortiz on 12-01-2022 pH (U) 6.5 [pH] 5.0-9.0 [facility] Amphetamine Screen Ql (U)Ord ered By: TELMA Smith on 11-20-2022 Amphetamines Ql (U) Negative Negative [facility] Barbiturates [Presence] in U rine by Screen methodOrdered By: TELMA Smith on 11-20-2022 Barbiturates Screen Ql (U) Negative Negative [facility] Benzodiazepines Screen Ql (U )Ordered By: TELMA Smith on 11-20-2022 Benzodiazepines Ql (U) Negative Negative [facility] Benzoylecgonine [Presence] i n Urine by Screen methodOrdered By: TELMA Smith on 11-20-2022 Benzoylecgonine Screen Ql (U) Negative Negative [facility] Bilirubin Test strip Ql (U)O rdered By: TELMA Smith on 11-20-2022 Bilirubin Ql (U) Negative Negative [facility] Color Auto (U)Ordered By: MD DESEAN Smith on 11-20-2022 Color (U) Yellow Yellow [facility] Ketones Auto test strip (U) [Mass/Vol]Ordered By: TELMA Smith on 11-20-2022 Ketones (U) [Mass/Vol] Trace Negative [facility] Nitrite Test strip Ql (U)Ord ered By: TELMA Smith on 11-20-2022 Nitrite Ql (U) Negative Negative [facility] Opiates [Presence] in Urine by Screen methodOrdered By: TELMA Smith on 11-20-2022 Opiates Screen Ql (U) Negative Negative [facility] Phencyclidine Screen Ql (U)O rdered By: TELMA Smith on 11-20-2022 Phencyclidine Ql (U) Negative Negative [facility] Comment on above: These are unconfirme d results and should not be used for legal purposes. Drug Cut-Off Concentration: AMPH 1000 ng/mL FAVIOLA 200 ng/mL THA 200 ng/mL COCM 300 ng/mL OP 300 ng/mL PCP 25 ng/mL Protein Auto test strip (U) [Mass/Vol]Ordered By: TELMA Smith on 11-20-2022 Protein (U) [Mass/Vol] Negative Negative [facility] Specific gravity Auto test s trip (U) [Rel density]Ordered By: TELMA Smith on 11-20-2022 Specific gravity (U) [Rel density] 1.025 1.001-1.03 0 [facility] Urine clarity by refractomet ry automatedOrdered By: TELMA Smith on 11-20-2022 Clarity Refractometry automated (U) Clear Clear [facility] Urine glucose measurement by automated test strip (mass/volume)Ordered By: SHELLIE Smith on 11-20-2022 Glucose Auto test strip (U) [Mass/Vol] Normal mg/dL Normal [facility] Urine hemoglobin detection b y automated test stripOrdered By: TELMA Smith on 11-20-2022 Hemoglobin Auto test strip Ql (U) Negative Negative [facility] Urine leukocyte esterase det ection by automated test stripOrdered By: TELMA Smith on 11-20-2022 Leukocyte esterase Auto test strip Ql (U) Negative Negative [facility] Urobilinogen Auto test strip (U) [Mass/Vol]Ordered By: TELMA Smith on 11-20-2022 Urobilinogen (U) [Mass/Vol] Normal mg/dL Normal [facility] pH Auto test strip (U)Ordere d By: TELMA Smith on 11-20-2022 pH (U) 6.5 [pH] 5.0-9.0 [facility] Amphetamine Screen Ql (U)Ord ered By: MARY KAY CANTU on 11-19-2022 Amphetamines Ql (U) Negative Negative [facility] Barbiturates [Presence] in U rine by Screen methodOrdered By: MARY KAY CANTU on 11-19-2022 Barbiturates Screen Ql (U) Negative Negative [facility] Benzodiazepines Screen Ql (U )Ordered By: MARY KAY CANTU on 11-19-2022 Benzodiazepines Ql (U) Negative Negative [facility] Benzoylecgonine [Presence] i n Urine by Screen methodOrdered By: MARY KAY CANTU on 11-19-2022 Benzoylecgonine Screen Ql (U) Negative Negative [facility] Bilirubin Test strip Ql (U)O rdered By: MARY KAY CANTU on 11-19-2022 Bilirubin Ql (U) Negative Negative [facility] Color Auto (U)Ordered By: LJ CANTU on 11-19-2022 Color (U) Yellow Yellow [facility] fibronectinOrdered By: MARY KAY CANTU on 11-19-2022 Fibronectin. (Vag fld) [Mass/Vol] Positive Negative [facility] Ketones Auto test strip (U) [Mass/Vol]Ordered By: MARY KAY CANTU on 11-19-2022 Ketones (U) [Mass/Vol] Trace Negative [facility] Nitrite Test strip Ql (U)Ord ered By: MARY KAY CANTU on 11-19-2022 Nitrite Ql (U) Negative Negative [facility] Opiates [Presence] in Urine by Screen methodOrdered By: MARY KAY CANTU on 11-19-2022 Opiates Screen Ql (U) Negative Negative [facility] Phencyclidine Screen Ql (U)O rdered By: MARY KAY CANTU on 11-19-2022 Phencyclidine Ql (U) Negative Negative [facility] Comment on above: These are unconfirme d results and should not be used for legal purposes. Drug Cut-Off Concentration: AMPH 1000 ng/mL FAVIOLA 200 ng/mL THA 200 ng/mL COCM 300 ng/mL OP 300 ng/mL PCP 25 ng/mL Protein Auto test strip (U) [Mass/Vol]Ordered By: MARY KAY CANTU on 11-19-2022 Protein (U) [Mass/Vol] Negative Negative [facility] Specific gravity Auto test s trip (U) [Rel density]Ordered By: MARY KAY CANTU on 11-19-2022 Specific gravity (U) [Rel density] 1.017 1.001-1.03 0 [facility] Urine clarity by refractomet ry automatedOrdered By: MARY KAY CANTU on 11-19-2022 Clarity Refractometry automated (U) Clear Clear [facility] Urine glucose measurement by automated test strip (mass/volume)Ordered By: MARY KAY CANTU on 11-19-2022 Glucose Auto test strip (U) [Mass/Vol] Normal mg/dL Normal [facility] Urine hemoglobin detection b y automated test stripOrdered By: MARY KAY CANTU on 11-19-2022 Hemoglobin Auto test strip Ql (U) Negative Negative [facility] Urine leukocyte esterase det ection by automated test stripOrdered By: MARY KAY CANTU on 11-19-2022 Leukocyte esterase Auto test strip Ql (U) Negative Negative [facility] Urobilinogen Auto test strip (U) [Mass/Vol]Ordered By: MARY KAY CANTU on 11-19-2022 Urobilinogen (U) [Mass/Vol] Normal mg/dL Normal [facility] pH Auto test strip (U)Ordere d By: MARY KAY CANTU on 11-19-2022 pH (U) 7.5 [pH] 5.0-9.0 [facility] US PREG TVon 07-14-2022 US [...] PETRA SALCIDO Date: 2022-07-14 00:14 Normal [facility] AMYLASEon 07-13-2022 Amylase [Catalytic activity/Vol] 43 U/L Normal 25-115 [facility] Comment on above: Performed By: #### C BC #### [facility] [address] [place] [address] Dr. Moris Winter CBC AUTO DIFFon 07-13-2022 BASO # 0.0 103/ul Normal 0.0-0.1 [facility] Comment on above: Performed By: #### C BC #### [facility] [address] [place] [address] Dr. Moris Winter Basophils/100 WBC (Bld) 0.2 % Normal 0.2-2.0 [facility] Comment on above: Performed By: #### C BC #### [facility] [address] [place] [address] Dr. Moris Winter EO # 0.1 103/ul Normal 0.0-0.7 [facility] Comment on above: Performed By: #### C BC #### [facility] [address] [place] [address] Dr. Moris Winter Eosinophils/100 WBC (Bld) 1.2 % Normal 0.9-7.0 [facility] Comment on above: Performed By: #### C BC #### [facility] [address] [place] [address] Dr. Moris Winter Erythrocyte distribution width (RBC) [Ratio] 13.8 % Normal 11.0-15.0 [facility] Comment on above: Performed By: #### C BC #### [facility] [address] [place] [address] Dr. Moris Winter Hematocrit (Bld) [Volume fraction] 36.6 % Normal 36.0-48.0 [facility] Comment on above: Performed By: #### C BC #### [facility] [address] [place] [address] Dr. Moris Winter Hemoglobin (Bld) [Mass/Vol] 12.3 g/dL Normal 12.0-16.0 [facility] Comment on above: Performed By: #### C BC #### [facility] [address] [place] [address] Dr. Moris Winter IG # 0.03 10e3/ul Normal 0.00-0.03 [facility] Comment on above: Performed By: #### C BC #### [facility] [address] [place] [address] Dr. Moris Winter IG % 0.3 % Normal 0.0-0.5 [facility] Comment on above: Performed By: #### C BC #### [facility] [address] [place] [address] Dr. Moris Winter LYMPH # 2.1 103/ul Normal 1.2-3.8 [facility] Comment on above: Performed By: #### C BC #### [facility] [address] [place] [address] Dr. Moris Winter Lymphocytes/100 WBC (Bld) 24.3 % Normal 20.5-60.0 [facility] Comment on above: Performed By: #### C BC #### [facility] [address] [place] [address] Dr. Moris Winter MANUAL DIFF REQ NO Normal [facility] Comment on above: Performed By: #### C BC #### [facility] [address] [place] [address] Dr. Moris Winter MCH (RBC) [Entitic mass] 27.5 pg Normal 26.7-34.0 [facility] Comment on above: Performed By: #### C BC #### [facility] [address] [place] [address] Dr. Moris Winter MCHC (RBC) [Mass/Vol] 33.6 g/dL Normal 29.9-35.2 [facility] Comment on above: Performed By: #### C BC #### [facility] [address] [place] [address] Dr. Moris Winter MCV (RBC) [Entitic vol] 81.7 fL Normal 81.0-99.0 [facility] Comment on above: Performed By: #### C BC #### [facility] [address] [place] [address] Dr. Moris Winter MONO # 0.7 103/ul Normal 0.3-0.8 [facility] Comment on above: Performed By: #### C BC #### [facility] [address] [place] [address] Dr. Moris Winter Monocytes/100 WBC (Bld) 7.8 % Normal 1.7-12.0 [facility] Comment on above: Performed By: #### C BC #### [facility] [address] [place] [address] Dr. Moris Winter NEUT # 5.8 103/ul Normal 1.4-6.5 [facility] Comment on above: Performed By: #### C BC #### [facility] [address] [place] [address] Dr. Moris Winter Neutrophils/100 WBC (Bld) 66.2 % Normal 43.0-75.0 [facility] Comment on above: Performed By: #### C BC #### [facility] [address] [place] [address] Dr. Moris Winter Platelet mean volume (Bld) [Entitic vol] 10.2 fL Normal 9.5-13.5 [facility] Comment on above: Performed By: #### C BC #### [facility] [address] [place] [address] Dr. Moris Winter PLT 301 103/ul Normal 150-450 [facility] Comment on above: Performed By: #### C BC #### [facility] [address] [place] [address] Dr. Moris Winter RBC 4.48 106/ul Normal 4.20-5.40 [facility] Comment on above: Performed By: #### C BC #### [facility] [address] [place] [address] Dr. Moris Winter WBC 8.7 103/ul Normal 4.0-11.0 [facility] Comment on above: Performed By: #### C BC #### [facility] [address] [place] [address] Dr. Moris Winter ER URINE PROFILEon 3 Bilirubin Ql (U) Negative Normal NEGATIVE [facility] Comment on above: Performed By: #### P REGU #### [facility] [address] [place] [address] Dr. Moris Winter Clarity (U) CLEAR Normal CLEAR [facility] Comment on above: Performed By: #### P REGU #### [facility] [address] [place] [address] Dr. Moris Winter Color (U) LT. YELLOW Normal YELLOW [facility] Comment on above: Performed By: #### P REGU #### [facility] [address] [place] [address] Dr. Moris PROCTOR A micrscopic examina tion will be performed if indicated. Normal [facility] Comment on above: Performed By: #### P REGU #### [facility] [address] [place] [address] Dr. Moris Winter Glucose Ql (U) Negative Normal NEGATIVE [facility] Comment on above: Performed By: #### P REGU #### [facility] [address] [place] [address] Dr. Moris Winter Hemoglobin Ql (U) Negative Normal NEGATIVE [facility] Comment on above: Performed By: #### P REGU #### [facility] [address] [place] [address] Dr. Moris Winter Ketones Ql (U) TRACE Abnormal NEGATIVE [facility] Comment on above: Performed By: #### P REGU #### [facility] [address] [place], [place] [id number] Dr. Moris Winter LEUKOCYTES TRACE Abnormal NEGATIVE [facility] Comment on above: Performed By: #### P REGU #### [facility] [address] [place] [address] Dr. Moris Winter Nitrite Ql (U) Negative Normal NEGATIVE [facility] Comment on above: Performed By: #### P REGU #### [facility] [address] [place] [address] Dr. Moris Winter pH (U) 7.0 [pH] Normal 5-9 [facility] Comment on above: Performed By: #### P REGU #### [facility] [address] [place] [address] Dr. Moris Winter SPEC GRAVITY 1.020 Normal 1.005-<=1. 025 [facility] Comment on above: Performed By: #### P REGU #### [facility] [address] [place] [address] Dr. Moris Winter UA PROTEIN Negative Normal NEGATIVE/ TRACE [facility] Comment on above: Performed By: #### P REGU #### [facility] [address] [place] [address] Dr. Moris Winter UR MICRO IND INDICATED Normal [facility] Comment on above: Performed By: #### P REGU #### [facility] [address] [place] [address] Dr. Moris Winter Urobilinogen Qn (U) 0.2 {Marcin'U}/dL Normal 0.2 - 1. 0 [facility] Comment on above: Performed By: #### P REGU #### [facility] [address] [place] [address] Dr. Moris Winter LIPASEon 07-13-2022 Lipase [Catalytic activity/Vol] 204.0 U/L Normal 73.0-393.0 [facility] Comment on above: Performed By: #### C BC #### [facility] [address] [place] [address] Dr. Moris Winter PREG QUANT HCGon 07-13-2022 HCG QUANT 1455 mIU/mL Normal [facility] Comment on above: Performed By: #### P REGU #### [facility] [address] [place] [address] Dr. Moris Winter HCG RANGE SEE BELOW Normal [facility] Comment on above: Result Comment: 5-50 0.2-1 WEEK 50-500 1-2 WEEKS 100-5,000 2-3 WEEKS 500-10,000 3-4 WEEKS 1,000-50,000 4-5 WEEKS 10,000-100,000 5-6 WEEKS 15,000-200,000 6-8 WEEKS 10,000-100,000 2-3 MONTHS Performed By: #### P REGU #### [facility] [address] [place] [address] Dr. Moris Winter URon 07-13-2022 , QUAL Positive Abnormal NEGATIVE [facility] Comment on above: Performed By: #### P REGU #### [facility] [address] [place] [address] Dr. Moris Winter PROF 14(COMP METB)on 023 Albumin [Mass/Vol] 3.3 g/dL Critically low 3.4-5.0 [facility] Comment on above: Performed By: #### C BC #### [facility] [address] [place] [address] Dr. Moris Winter Albumin/Globulin [Mass ratio] 0.7 {ratio} Normal [facility] Comment on above: Performed By: #### C BC #### [facility] [address] [place] [address] Dr. Moris Winter ALP [Catalytic activity/Vol] 86 U/L Normal 46-116 [facility] Comment on above: Performed By: #### C BC #### [facility] [address] [place] [address] Dr. Moris Winter ALT [Catalytic activity/Vol] 16 U/L Normal 14-59 [facility] Comment on above: Performed By: #### C BC #### [facility] [address] [place] [address] Dr. Moris Winter Anion gap [Moles/Vol] 14.9 mmol/L Normal [facility] Comment on above: Performed By: #### C BC #### [facility] [address] [address] [address] Moris Winter AST [Catalytic activity/Vol] 12 U/L Critically low 15-37 [facility] Comment on above: Performed By: #### C BC #### [facility] [address] [address] [address] Moris Winter Bilirubin [Mass/Vol] 0.1 mg/dL Critically low 0.2-1.0 [facility] Comment on above: Performed By: #### C BC #### [facility] [address] [address] [address] Moris Winter Calcium [Mass/Vol] 9.3 mg/dL Normal 8.5-10.1 [facility] Comment on above: Performed By: #### C BC #### [facility] [address] [address] [address] Moris Winter Chloride [Moles/Vol] 103 mmol/L Normal 98-107 [facility] Comment on above: Performed By: #### C BC #### [facility] [address] [address] [address] Moris Winter CO2 [Moles/Vol] 25.4 mmol/L Normal 21.0-32.0 [facility] Comment on above: Performed By: #### C BC #### [facility] [address] [address] [address] Moris Winter Creatinine [Mass/Vol] 0.80 mg/dL Normal 0.55-1.02 [facility] Comment on above: Performed By: #### C BC #### [facility] [address] [address] [address] Moris Winter EGFR-AF URUGUAYAN >60 Normal >=60 [facility] Comment on above: Performed By: #### C BC #### [facility] [address] [address] [address] Moris Winter EGFR-NON AF URUGUAYAN >60 Normal >=60 [facility] Comment on above: Performed By: #### C BC #### [facility] [address] [place] [address] Dr. Moris Winter Globulin (S) [Mass/Vol] 4.6 g/dL Normal [facility] Comment on above: Performed By: #### C BC #### [facility] [address] [place] [address] Dr. Moris Winter Glucose [Mass/Vol] 111 mg/dL Critically high 74-106 [facility] Comment on above: Performed By: #### C BC #### [facility] [address] [place] [address] Dr. Moris Winter Potassium [Moles/Vol] 3.3 mmol/L Critically low 3.5-5.1 [facility] Comment on above: Performed By: #### C BC #### [facility] [address] [place] [address] Dr. Moris Winter Protein [Mass/Vol] 7.9 g/dL Normal 6.4-8.2 [facility] Comment on above: Performed By: #### C BC #### [facility] [address] [place] [address] Dr. Moris Winter Sodium [Moles/Vol] 140 mmol/L Normal 136-145 [facility] Comment on above: Performed By: #### C BC #### [facility] [address] [place] [address] Dr. Moris Winter Urea nitrogen [Mass/Vol] 10.0 mg/dL Normal 7.0-18.0 [facility] Comment on above: Performed By: #### C BC #### [facility] [address] [place] [address] Dr. Moris Winter Urea nitrogen/Creatinine [Mass ratio] 12.5 mg/mg Normal [facility] Comment on above: Performed By: #### C BC #### [facility] [address] [place] [address] Dr. Moris Winter URINE MICROSCOPIC ONLYon BACTERIA TRACE Abnormal NONE SEEN [facility] Comment on above: Performed By: #### P REGU #### [facility] [address] [place] [address] Dr. Moris Winter Bacteria identified Cx Nom (U) NOT INDICATED Normal [facility] Comment on above: Performed By: #### P REGU #### [facility] [address] [place] [address] Dr. Moris Winter CAST NONE SEEN Normal NONE SEEN [facility] Comment on above: Performed By: #### P REGU #### [facility] [address] [address] [address] Moris Winter Crystals LM Nom (Urine sed) NONE SEEN Normal NONE SEEN [facility] Comment on above: Performed By: #### P REGU #### [facility] [address] [place] [address] Dr. Moris Winter Epithelial cells LM Ql (Urine sed) FEW Abnormal NONE SEEN /RARE [facility] Comment on above: Performed By: #### P REGU #### [facility] [address] [place] [address] Dr. Moris Winter MUCOUS NONE SEEN Normal NONE SEEN [facility] Comment on above: Performed By: #### P REGU #### [facility] [address] [place] [address] Dr. Moris Winter RBC 0-2 Normal 0-2 [facility] Comment on above: Performed By: #### P REGU #### [facility] [address] [place] [address] Dr. Moris Winter WBC 2-5 Abnormal NONE SEEN [facility] Comment on above: Performed By: #### P REGU #### [facility] [address] [place] [address] Dr. Moris Winter Cholesterol [Mass/volume] in Serum or PlasmaOrdered By: Nataly Toure on 06-16-2022 Cholesterol [Mass/Vol] 189 mg/dL 140-200 [facility] Comment on above: Chol less than 200 m g/dl low riskChol 201-239 mg/dl borderline riskChol 240 mg/dl and greater high risk Cholesterol in LDL Calc [Mas s/Vol]Ordered By: Nataly Toure on 06-16-2022 Cholesterol in LDL [Mass/Vol] 84 mg/dL 0-100 [facility] Comment on above: LDL ATP III CLASSIFI CATIONLDL less than 100 mg/dL OptimalLDL 100-129 mg/dL Near or above optimalLDL 130-159 mg/dL Borderline highLDL 160-189 mg/dL HighLDL greater than 189 mg/dL Very high Cholesterol in VLDL Calc [Ma ss/Vol]Ordered By: Nataly Toure on 06-16-2022 Cholesterol in VLDL [Mass/Vol] 54 mg/dL [facility] Serum or plasma high density lipoprotein (HDL) cholesterol measurementOrdered By: Nataly Toure on 06-16-2022 Cholesterol in HDL [Mass/Vol] 50 mg/dL 35-85 [facility] Comment on above: HDL CHOL ATP-III CLA SSIFICATION Cardiovascular RiskHDL > or equal to 60 mg/dL LOWHDL < 40 mg/dL HIGH Serum or plasma total choles terol/high density lipoprotein (HDL) cholesterol mass ratOrdered By: Nataly Toure on 06-16-2022 Cholesterol.total/Chol esterol in HDL [Mass ratio] 3.8 {ratio} <5.0 [facility] Triglyceride [Mass/volume] i n Serum or PlasmaOrdered By: Nataly Toure on 06-16-2022 Triglyceride [Mass/Vol] 273 mg/dL 0-149 [facility] Comment on above: TRIG ATP III CLASSIF ICATIONTRIG less than 150 mg/dL NormalTRIG 150-199 mg/dL Borderline highTRIG 200-500 mg/dL High TRIG greater than 500 mg/dL Very highStandard traceable to the Center for Disease Conrtrol and Prevention (CDC) test method. Alanine aminotransferase [En zymatic activity/volume] in Serum or PlasmaOrdered By: Nataly Toure on 06-04-2022 ALT [Catalytic activity/Vol] 7 U/L 7-52 [facility] Albumin [Mass/volume] in Ser um or Plasma by Bromocresol green (BCG) dye binding methoOrdered By: Nataly Toure on 06-04-2022 Albumin BCG dye [Mass/Vol] 3.8 g/dL 3.5-5.7 [facility] Alkaline phosphatase [Enzyma tic activity/volume] in Serum or PlasmaOrdered By: Nataly Toure on 06-04-2022 ALP [Catalytic activity/Vol] 78 U/L 34-104 [facility] Amylase [Enzymatic activity/ volume] in Serum or PlasmaOrdered By: Nataly Jerniganc on 06-04-2022 Amylase [Catalytic activity/Vol] 29 U/L 29-103 [facility] Aspartate aminotransferase [ Enzymatic activity/volume] in Serum or PlasmaOrdered By: Nataly Spasic on 06-04-2022 AST [Catalytic activity/Vol] 10 U/L 13-39 [facility] Basophils Auto (Bld) [#/Vol] Ordered By: Nataly Spasic on 06-04-2022 Basophils (Bld) [#/Vol] 0.1 10*3/uL 0.0-0.2 [facility] Basophils/100 WBC Auto (Bld) Ordered By: Nataly Spasic on 06-04-2022 Basophils/100 WBC (Bld) 1.4 % . [facility] Bilirubin.total [Mass/volume ] in Serum or PlasmaOrdered By: Nataly Junesic on 06-04-2022 Bilirubin [Mass/Vol] 0.3 mg/dL 0.3-1.0 [facility] Calcium [Mass/volume] in Ser um or PlasmaOrdered By: Nataly Spasic on 06-04-2022 Calcium [Mass/Vol] 9.3 mg/dL 8.6-10.3 [facility] Carbon dioxide, total [Moles /volume] in Serum or PlasmaOrdered By: Nataly Spasic on 06-04-2022 CO2 [Moles/Vol] 29.6 mmol/L 21.0-31.0 [facility] Chloride [Moles/volume] in S rosa or PlasmaOrdered By: Nataly Spasic on 06-04-2022 Chloride [Moles/Vol] 99 mmol/L 98-107 [facility] Creatinine [Mass/volume] in Serum or PlasmaOrdered By: Nataly Spasic on 06-04-2022 Creatinine [Mass/Vol] 0.69 mg/dL 0.60-1.20 [facility] Eosinophils Auto (Bld) [#/Vo l]Ordered By: Nataly Spasic on 06-04-2022 Eosinophils (Bld) [#/Vol] 0.2 10*3/uL 0.0-0.45 [facility] Eosinophils/100 WBC Auto (Bl d)Ordered By: Nataly Toure on 06-04-2022 Eosinophils/100 WBC (Bld) 1.8 % . [facility] Erythrocyte distribution wid th Auto (RBC) [Ratio]Ordered By: Nataly Toure on 06-04-2022 Erythrocyte distribution width (RBC) [Ratio] 14.6 % 11.9-15.3 [facility] Ferritin [Mass/volume] in Se rum or PlasmaOrdered By: Nataly Toure on 06-04-2022 Ferritin [Mass/Vol] 12.7 ng/mL 11.0-306.8 [facility] Globulin Calc (S) [Mass/Vol] Ordered By: Nataly Toure on 06-04-2022 Globulin (S) [Mass/Vol] 3.6 g/dL [facility] Glucose [Mass/volume] in Ser um or PlasmaOrdered By: Nataly Toure on 06-04-2022 Glucose [Mass/Vol] 103 mg/dL 70-100 [facility] Comment on above: ADA recommended refe rence rangeRandom Glucose Reference Range is dependent on time and content of last meal. Glucose of more than 200 mg/dL in a nonstressed, ambulatory subject supports the diagnosis of Diabetes Mellitus. Hematocrit Auto (Bld) [Volum e fraction]Ordered By: Nataly Toure on 06-04-2022 Hematocrit (Bld) [Volume fraction] 38.2 % 34.0-46.4 [facility] Hemoglobin [Mass/volume] in BloodOrdered By: Nataly Toure on 06-04-2022 Hemoglobin (Bld) [Mass/Vol] 12.7 g/dL 11.8-15.4 [facility] Leukocytes [#/volume] correc kee for nucleated erythrocytes in Blood by Automated counOrdered By: Nataly Toure on 06-04-2022 WBC corrected for nucl RBC Auto (Bld) [#/Vol] 8.7 10*3/uL 3.8-11.6 [facility] Lipase [Enzymatic activity/v olume] in Serum or PlasmaOrdered By: Nataly Toure on 06-04-2022 Lipase [Catalytic activity/Vol] 38.0 U/L 11.0-82.0 [facility] Lymphocytes Auto (Bld) [#/Vo l]Ordered By: Naatly Toure on 06-04-2022 Lymphocytes (Bld) [#/Vol] 1.7 10*3/uL 1.00-4.8 [facility] Lymphocytes/100 WBC Auto (Bl d)Ordered By: Nataly Toure on 06-04-2022 Lymphocytes/100 WBC (Bld) 19.7 % . [facility] MCH Auto (RBC) [Entitic mass ]Ordered By: Nataly Toure on 06-04-2022 MCH (RBC) [Entitic mass] 26.8 pg 24.7-34.3 [facility] MCHC Auto (RBC) [Mass/Vol]Or dered By: Nataly Toure on 06-04-2022 MCHC (RBC) [Mass/Vol] 33.2 g/dL 32.0-35.0 [facility] MCV Auto (RBC) [Entitic vol] Ordered By: Nataly Toure on 06-04-2022 MCV (RBC) [Entitic vol] 80.7 fL 80-100 [facility] Monocytes Auto (Bld) [#/Vol] Ordered By: Nataly Toure on 06-04-2022 Monocytes (Bld) [#/Vol] 0.5 10*3/uL 0.0-0.8 [facility] Monocytes/100 WBC Auto (Bld) Ordered By: Nataly Toure on 06-04-2022 Monocytes/100 WBC (Bld) 6.1 % . [facility] Neutrophils Auto (Bld) [#/Vo l]Ordered By: Nataly Toure on 06-04-2022 Neutrophils (Bld) [#/Vol] 6.2 10*3/uL 1.8-7.7 [facility] Neutrophils/100 WBC Auto (Bl d)Ordered By: Nataly Toure on 06-04-2022 Neutrophils/100 WBC (Bld) 71.0 % . [facility] No Panel InformationOrdered By: Nataly Toure on 06-04-2022 Estimated GFR (CKD-EPI) > 60.0 mL/Min [facility] Creatinine Clearance (Chem N/A [facility] Nucleated erythrocytes [Pres ence] in Blood by Automated countOrdered By: Nataly Toure on 06-04-2022 Nucleated RBC Auto Ql (Bld) 0.2 /100{WBC} 0-0.5 [facility] Platelet mean volume Auto (B ld) [Entitic vol]Ordered By: Nataly Toure on 06-04-2022 Platelet mean volume (Bld) [Entitic vol] 10.2 fL 6.3-10.7 [facility] Platelets Auto (Bld) [#/Vol] Ordered By: Nataly Toure on 06-04-2022 Platelets (Bld) [#/Vol] 245 10*3/uL 150-450 [facility] Potassium [Moles/volume] in Serum or PlasmaOrdered By: Nataly Tuore on 06-04-2022 Potassium [Moles/Vol] 4.5 mmol/L 3.5-5.1 [facility] Protein [Mass/volume] in Ser um or PlasmaOrdered By: Nataly Toure on 06-04-2022 Protein [Mass/Vol] 7.4 g/dL 6.4-8.9 [facility] RBC Auto (Bld) [#/Vol]Ordere d By: Nataly Toure on 06-04-2022 RBC (Bld) [#/Vol] 4.73 10*6/uL 3.60-5.00 [facility] Serum or plasma albumin/glob ulin mass ratioOrdered By: Nataly Toure on 06-04-2022 Albumin/Globulin [Mass ratio] 1.1 {ratio} [facility] Serum or plasma anion gap de terminationOrdered By: Nataly Toure on 06-04-2022 Anion gap [Moles/Vol] 10.9 mmol/L 6.0-15.0 [facility] Serum or plasma insulin nikita urement (units/volume)Ordered By: Nataly Toure on 06-04-2022 Insulin Qn 128.0 u[iU]/mL 2.6-24.9 [facility] Comment on above: Performed at: [facility] [id number] [place], [place] [id number] Director: Sam Lopez PhD, Phone: [phone] Sodium [Moles/volume] in Ser um or PlasmaOrdered By: Nataly Toure on 06-04-2022 Sodium [Moles/Vol] 135 mmol/L 136-145 [facility] Urea nitrogen [Mass/volume] in Serum or PlasmaOrdered By: Nataly Toure on 06-04-2022 Urea nitrogen [Mass/Vol] 9 mg/dL 7-25 [facility] WBC Auto (Bld) [#/Vol]Ordere d By: Nataly Toure on 06-04-2022 WBC (Bld) [#/Vol] 8.7 10*3/uL 3.8-11.6 [facility] AMYLASEon 06-03-2022 Amylase [Catalytic activity/Vol] 37 U/L Normal 25-115 [facility] Comment on above: Performed By: #### L IPA, CMP, KIM #### [facility] [address] [place] [address] Dr. Moris Winter CBC AUTO DIFFon 06-03-2022 BASO # 0.0 103/ul Normal 0.0-0.1 [facility] Comment on above: Performed By: #### C BC #### [facility] [address] [place] [address] Dr. Moris Winter Basophils/100 WBC (Bld) 0.1 % Critically low 0.2-2.0 [facility] Comment on above: Performed By: #### C BC #### [facility] [address] [address] [address] Moris Winter EO # 0.1 103/ul Normal 0.0-0.7 [facility] Comment on above: Performed By: #### C BC #### [facility] [address] [place] [address] Dr. Moris Winter Eosinophils/100 WBC (Bld) 1.6 % Normal 0.9-7.0 [facility] Comment on above: Performed By: #### C BC #### [facility] [address] [place] [address] Dr. Moris Winter Erythrocyte distribution width (RBC) [Ratio] 13.5 % Normal 11.0-15.0 [facility] Comment on above: Performed By: #### C BC #### [facility] [address] [place] [address] Dr. Moris Winter Hematocrit (Bld) [Volume fraction] 36.3 % Normal 36.0-48.0 [facility] Comment on above: Performed By: #### C BC #### [facility] [address] [place] [address] Dr. Moris Winter Hemoglobin (Bld) [Mass/Vol] 11.8 g/dL Critically low 12.0-16.0 [facility] Comment on above: Performed By: #### C BC #### [facility] [address] [place] [address] Dr. Moris Winter IG # 0.03 10e3/ul Normal 0.00-0.03 [facility] Comment on above: Performed By: #### C BC #### [facility] [address] [place] [address] Dr. Moris Winter IG % 0.4 % Normal 0.0-0.5 [facility] Comment on above: Performed By: #### C BC #### [facility] [address] [place] [address] Dr. Moris Winter LYMPH # 2.5 103/ul Normal 1.2-3.8 [facility] Comment on above: Performed By: #### C BC #### [facility] [address] [place] [address] Dr. Moris Winter Lymphocytes/100 WBC (Bld) 33.2 % Normal 20.5-60.0 [facility] Comment on above: Performed By: #### C BC #### [facility] [address] [place] [address] Dr. Moris Winter MANUAL DIFF REQ NO Normal [facility] Comment on above: Performed By: #### C BC #### [facility] [address] [place], [place] [id number] Dr. Moris Winter MCH (RBC) [Entitic mass] 26.2 pg Critically low 26.7-34.0 [facility] Comment on above: Performed By: #### C BC #### [facility] [address] [place] [address] Dr. Moris Winter MCHC (RBC) [Mass/Vol] 32.5 g/dL Normal 29.9-35.2 [facility] Comment on above: Performed By: #### C BC #### [facility] [address] [place] [address] Dr. Moris Winter MCV (RBC) [Entitic vol] 80.7 fL Critically low 81.0-99.0 [facility] Comment on above: Performed By: #### C BC #### [facility] [address] [place] [address] Dr. Moris Winter MONO # 0.7 103/ul Normal 0.3-0.8 [facility] Comment on above: Performed By: #### C BC #### [facility] [address] [place] [address] Dr. Moris Winter Monocytes/100 WBC (Bld) 9.9 % Normal 1.7-12.0 [facility] Comment on above: Performed By: #### C BC #### [facility] [address] [place] [address] Dr. Moris Winter NEUT # 4.1 103/ul Normal 1.4-6.5 [facility] Comment on above: Performed By: #### C BC #### [facility] [address] [place] [address] Dr. Moris Winter Neutrophils/100 WBC (Bld) 54.8 % Normal 43.0-75.0 [facility] Comment on above: Performed By: #### C BC #### [facility] [address] [place] [address] Dr. Moris Winter Platelet mean volume (Bld) [Entitic vol] 10.7 fL Normal 9.5-13.5 [facility] Comment on above: Performed By: #### C BC #### [facility] [address] [address] [address] Moris Winter PLT 248 103/ul Normal 150-450 [facility] Comment on above: Performed By: #### C BC #### [facility] [address] [address] [address] Moris Winter RBC 4.50 106/ul Normal 4.20-5.40 [facility] Comment on above: Performed By: #### C BC #### [facility] [address] [id number] [address] Moris Winter WBC 7.5 103/ul Normal 4.0-11.0 [facility] Comment on above: Performed By: #### C BC #### [facility] [address] [place] [address] ABD/PELV W CONon [...] lymph nodes are seen. Electronically authenticated by: NANCIRos COULTER Date: 2022-06-03 02:19 Normal [facility] ER URINE PROFILEon 3 Bilirubin Ql (U) Negative Normal NEGATIVE [facility] Comment on above: Performed By: #### C BC #### [facility] [address] [place] [address] Dr. Moris Winter Clarity (U) CLEAR Normal CLEAR [facility] Comment on above: Performed By: #### C BC #### [facility] [address] [place] [address] Dr. Moris Winter Color (U) LT. YELLOW Normal YELLOW [facility] Comment on above: Performed By: #### C BC #### [facility] [address] [place] [address] Dr. Moris Winter ERUAHD A micrscopic examina tion will be performed if indicated. Normal [facility] Comment on above: Performed By: #### C BC #### [facility] [address] [place] [address] Dr. Moris Winter Glucose Ql (U) Negative Normal NEGATIVE [facility] Comment on above: Performed By: #### C BC #### [facility] [address] [place] [address] Dr. Moris Winter Hemoglobin Ql (U) Negative Normal NEGATIVE [facility] Comment on above: Performed By: #### C BC #### [facility] [address] [place] [address] Dr. Moris Winter Ketones Ql (U) Negative Normal NEGATIVE [facility] Comment on above: Performed By: #### C BC #### [facility] [address] [place] [address] Dr. Moris Winter LEUKOCYTES Negative Normal NEGATIVE [facility] Comment on above: Performed By: #### C BC #### [facility] [address] [place] [address] Dr. Moris Winter Nitrite Ql (U) Negative Normal NEGATIVE [facility] Comment on above: Performed By: #### C BC #### [facility] [address] [place] [address] Dr. Moris Winter pH (U) 7.0 [pH] Normal 5-9 [facility] Comment on above: Performed By: #### C BC #### [facility] [address] [place] [address] Dr. Moris Winter SPEC GRAVITY 1.015 Normal 1.005-<=1. 025 [facility] Comment on above: Performed By: #### C BC #### [facility] [address] [place] [address] Dr. Moris Winter UA PROTEIN Negative Normal NEGATIVE/ TRACE [facility] Comment on above: Performed By: #### C BC #### [facility] [address] [place] [address] Dr. Moris Winter UR MICRO IND NOT INDICATED Normal [facility] Comment on above: Performed By: #### C BC #### [facility] [address] [place] [address] Dr. Moris Winter Urobilinogen Qn (U) 1.0 {Marcin'U}/dL Normal 0.2 - 1. 0 [facility] Comment on above: Performed By: #### C BC #### [facility] [address] [place] [address] Dr. Moris Winter LACTATE/LACTIC ACIDon 2022 Lactate [Moles/Vol] 1.0 mmol/L Normal 0.4-2.0 [facility] Comment on above: Performed By: #### L ACT #### [facility] [address] [place] [address] Dr. Moris Winter LIPASEon 06-03-2022 Lipase [Catalytic activity/Vol] 112.0 U/L Normal 73.0-393.0 [facility] Comment on above: Performed By: #### L IPA, CMP, KIM #### [facility] [address] [place] [address] Dr. Moris Winter URon 06-03-2022 , QUAL Negative Normal NEGATIVE [facility] Comment on above: Performed By: #### P REGU #### [facility] [address] [address] [address] Moris Winter PROF 14(COMP METB)on 023 Albumin [Mass/Vol] 2.9 g/dL Critically low 3.4-5.0 [facility] Comment on above: Performed By: #### L IPA, CMP, KIM #### [facility] [address] [address] [address] Moris Winter Albumin/Globulin [Mass ratio] 0.6 {ratio} Normal [facility] Comment on above: Performed By: #### L IPA, CMP, KIM #### [facility] [address] [place] [address] Dr. Moris Winter ALP [Catalytic activity/Vol] 86 U/L Normal 46-116 [facility] Comment on above: Performed By: #### L IPA, CMP, KIM #### [facility] [address] [place] [address] Dr. Moris Winter ALT [Catalytic activity/Vol] 14 U/L Normal 14-59 [facility] Comment on above: Performed By: #### L IPA, CMP, KIM #### [facility] [address] [place] [address] Dr. Moris Winter Anion gap [Moles/Vol] 10.9 mmol/L Normal [facility] Comment on above: Performed By: #### L IPA, CMP, KIM #### [facility] [address] [place] [address] Dr. Moris Winter AST [Catalytic activity/Vol] 12 U/L Critically low 15-37 [facility] Comment on above: Performed By: #### L IPA, CMP, KIM #### [facility] [address] [place] [address] Dr. Moris Winter Bilirubin [Mass/Vol] 0.2 mg/dL Normal 0.2-1.0 [facility] Comment on above: Performed By: #### L IPA, CMP, KIM #### [facility] [address] [place], [place] [id number] Dr. Moris Winter Calcium [Mass/Vol] 9.0 mg/dL Normal 8.5-10.1 [facility] Comment on above: Performed By: #### L IPA, CMP, KIM #### [facility] [address] [place] [address] Dr. Moris Winter Chloride [Moles/Vol] 102 mmol/L Normal 98-107 [facility] Comment on above: Performed By: #### L IPA, CMP, KIM #### [facility] [address] [place] [address] Dr. Moris Winter CO2 [Moles/Vol] 29.6 mmol/L Normal 21.0-32.0 [facility] Comment on above: Performed By: #### L IPA, CMP, KIM #### [facility] [address] [place] [address] Dr. Moris Winter Creatinine [Mass/Vol] 0.73 mg/dL Normal 0.55-1.02 [facility] Comment on above: Performed By: #### L IPA, CMP, KIM #### [facility] [address] [place] [address] Dr. Moris Winter EGFR-AF URUGUAYAN >60 Normal >=60 [facility] Comment on above: Performed By: #### L IPA, CMP, KIM #### [facility] [address] [place] [address] Dr. Moris Winter EGFR-NON AF URUGUAYAN >60 Normal >=60 [facility] Comment on above: Performed By: #### L IPA, CMP, KIM #### [facility] [address] [place] [address] Dr. Moris Winter Globulin (S) [Mass/Vol] 4.8 g/dL Normal [facility] Comment on above: Performed By: #### L IPA, CMP, KIM #### [facility] [address] [place] [address] Dr. Moris Winter Glucose [Mass/Vol] 121 mg/dL Critically high 74-106 [facility] Comment on above: Performed By: #### L IPA, CMP, KIM #### [facility] [address] [address] [address] Moris Winter Potassium [Moles/Vol] 3.5 mmol/L Normal 3.5-5.1 [facility] Comment on above: Performed By: #### L IPA, CMP, KIM #### [facility] [address] [address] [address] Moris Winter Protein [Mass/Vol] 7.7 g/dL Normal 6.4-8.2 [facility] Comment on above: Performed By: #### L IPA, CMP, KIM #### [facility] [address] [address] [address] Moris Winter Sodium [Moles/Vol] 139 mmol/L Normal 136-145 [facility] Comment on above: Performed By: #### L IPA, CMP, KIM #### [facility] [address] [place] [address] Dr. Moris Winter Urea nitrogen [Mass/Vol] 11.0 mg/dL Normal 7.0-18.0 [facility] Comment on above: Performed By: #### L IPA, CMP, KIM #### [facility] [address] [address] [address] Moris Winter Urea nitrogen/Creatinine [Mass ratio] 15.1 mg/mg Normal [facility] Comment on above: Performed By: #### L IPA, CMP, KIM #### [facility] [address] [place] [address] Dr. Moris Winter Alanine aminotransferase [En zymatic activity/volume] in Serum or PlasmaOrdered By: Nataly Toure on 05-28-2022 ALT [Catalytic activity/Vol] 10 U/L 7-52 [facility] Albumin [Mass/volume] in Ser um or Plasma by Bromocresol green (BCG) dye binding methoOrdered By: Nataly Toure on 05-28-2022 Albumin BCG dye [Mass/Vol] 3.9 g/dL 3.5-5.7 [facility] Alkaline phosphatase [Enzyma tic activity/volume] in Serum or PlasmaOrdered By: Nataly Toure on 05-28-2022 ALP [Catalytic activity/Vol] 87 U/L 34-104 [facility] Aspartate aminotransferase [ Enzymatic activity/volume] in Serum or PlasmaOrdered By: Nataly Toure on 05-28-2022 AST [Catalytic activity/Vol] 11 U/L 13-39 [facility] Basophils Auto (Bld) [#/Vol] Ordered By: Nataly Toure on 05-28-2022 Basophils (Bld) [#/Vol] 0.0 10*3/uL 0.0-0.2 [facility] Basophils/100 WBC Auto (Bld) Ordered By: Nataly Toure on 05-28-2022 Basophils/100 WBC (Bld) 0.6 % . [facility] Bilirubin.total [Mass/volume ] in Serum or PlasmaOrdered By: Nataly Toure on 05-28-2022 Bilirubin [Mass/Vol] 0.4 mg/dL 0.3-1.0 [facility] Calcium [Mass/volume] in Ser um or PlasmaOrdered By: Nataly Toure on 05-28-2022 Calcium [Mass/Vol] 9.1 mg/dL 8.6-10.3 [facility] Carbon dioxide, total [Moles /volume] in Serum or PlasmaOrdered By: Nataly Toure on 05-28-2022 CO2 [Moles/Vol] 27.6 mmol/L 21.0-31.0 [facility] Chloride [Moles/volume] in S rosa or PlasmaOrdered By: Nataly Toure on 05-28-2022 Chloride [Moles/Vol] 102 mmol/L 98-107 [facility] Cholesterol [Mass/volume] in Serum or PlasmaOrdered By: Nataly Toure on 05-28-2022 Cholesterol [Mass/Vol] 269 mg/dL 140-200 [facility] Comment on above: Chol less than 200 m g/dl low riskChol 201-239 mg/dl borderline riskChol 240 mg/dl and greater high risk Cholesterol in LDL Calc [Mas s/Vol]Ordered By: Nataly Toure on 05-28-2022 Cholesterol in LDL [Mass/Vol] TNP [facility] Comment on above: Test not performed Cholesterol in LDL [Mass/vol ume] in Serum or PlasmaOrdered By: Nataly Toure on 05-28-2022 Cholesterol in LDL [Mass/Vol] 82 mg/dL 0-100 [facility] Comment on above: LDL ATP III CLASSIFI CATIONLDL less than 100 mg/dL OptimalLDL 100-129 mg/dL Near or above optimalLDL 130-159 mg/dL Borderline highLDL 160-189 mg/dL HighLDL greater than 189 mg/dL Very high Cholesterol in VLDL Calc [Ma ss/Vol]Ordered By: Nataly Toure on 05-28-2022 Cholesterol in VLDL [Mass/Vol] 187 mg/dL [facility] Creatinine [Mass/volume] in Serum or PlasmaOrdered By: Nataly Toure on 05-28-2022 Creatinine [Mass/Vol] 0.68 mg/dL 0.60-1.20 [facility] Eosinophils Auto (Bld) [#/Vo l]Ordered By: Nataly Toure on 05-28-2022 Eosinophils (Bld) [#/Vol] 0.2 10*3/uL 0.0-0.45 [facility] Eosinophils/100 WBC Auto (Bl d)Ordered By: Nataly Toure on 05-28-2022 Eosinophils/100 WBC (Bld) 2.1 % . [facility] Erythrocyte distribution wid th Auto (RBC) [Ratio]Ordered By: Nataly Toure on 05-28-2022 Erythrocyte distribution width (RBC) [Ratio] 14.5 % 11.9-15.3 [facility] Free thyroxine indexOrdered By: Nataly Toure on 05-28-2022 Free T4 index Calc [Mass/Vol] 2.9 1.2-4.9 [facility] Globulin Calc (S) [Mass/Vol] Ordered By: Nataly Toure on 05-28-2022 Globulin (S) [Mass/Vol] 3.6 g/dL [facility] Glucose [Mass/volume] in Ser um or PlasmaOrdered By: Nataly Toure on 05-28-2022 Glucose [Mass/Vol] 95 mg/dL 70-100 [facility] Comment on above: ADA recommended [...] hemoglobin (Bld) [Mass/Vol] 111 mg/dL [facility] Hematocrit Auto (Bld) [Volum e fraction]Ordered By: Nataly Toure on 05-28-2022 Hematocrit (Bld) [Volume fraction] 38.2 % 34.0-46.4 [facility] Hemoglobin A1c percentageOrd ered By: Nataly Toure on 05-28-2022 HbA1c (Bld) [Mass fraction] 5.5 % 4.3-5.6 [facility] Comment on above: Increased risk for d iabetes: 5.7 - 6.4diabetes: >6.4glycemic control for adults with diabetes: <7.0 Hemoglobin [Mass/volume] in BloodOrdered By: Nataly Toure on 05-28-2022 Hemoglobin (Bld) [Mass/Vol] 12.9 g/dL 11.8-15.4 [facility] Iron [Mass/volume] in Serum or PlasmaOrdered By: Nataly Toure on 05-28-2022 Iron [Mass/Vol] 30 ug/dL 50-212 [facility] Iron binding capacity [Mass/ volume] in Serum or PlasmaOrdered By: Nataly Toure on 05-28-2022 Iron binding capacity [Mass/Vol] 449 ug/dL 255-450 [facility] Iron saturation [Mass Fracti on] in Serum or PlasmaOrdered By: Nataly Toure on 05-28-2022 Iron saturation [Mass fraction] 6.7 % 20-50 [facility] Leukocytes [#/volume] correc kee for nucleated erythrocytes in Blood by Automated counOrdered By: Nataly Toure on 05-28-2022 WBC corrected for nucl RBC Auto (Bld) [#/Vol] 7.3 10*3/uL 3.8-11.6 [facility] Lymphocytes Auto (Bld) [#/Vo l]Ordered By: Nataly Toure on 04-13-2023 Lymphocytes (Bld) [#/Vol] 1.9 10*3/uL 1.00-4.8 [facility] Lymphocytes/100 WBC Auto (Bl d)Ordered By: Nataly Toure on 05-28-2022 Lymphocytes/100 WBC (Bld) 26.6 % . [facility] MCH Auto (RBC) [Entitic mass ]Ordered By: Nataly Toure on 05-28-2022 MCH (RBC) [Entitic mass] 26.9 pg 24.7-34.3 [facility] MCHC Auto (RBC) [Mass/Vol]Or dered By: Nataly Toure on 05-28-2022 MCHC (RBC) [Mass/Vol] 33.8 g/dL 32.0-35.0 [facility] MCV Auto (RBC) [Entitic vol] Ordered By: Nataly Toure on 05-28-2022 MCV (RBC) [Entitic vol] 79.6 fL 80-100 [facility] Monocytes Auto (Bld) [#/Vol] Ordered By: Nataly Toure on 05-28-2022 Monocytes (Bld) [#/Vol] 0.6 10*3/uL 0.0-0.8 [facility] Monocytes/100 WBC Auto (Bld) Ordered By: Nataly Toure on 05-28-2022 Monocytes/100 WBC (Bld) 7.7 % . [facility] Neutrophils Auto (Bld) [#/Vo l]Ordered By: Nataly Toure on 05-28-2022 Neutrophils (Bld) [#/Vol] 4.6 10*3/uL 1.8-7.7 [facility] Neutrophils/100 WBC Auto (Bl d)Ordered By: Nataly Toure on 05-28-2022 Neutrophils/100 WBC (Bld) 63.0 % . [facility] No Panel InformationOrdered By: Nataly Toure on 05-28-2022 Estimated GFR (CKD-EPI) > 60.0 mL/Min [facility] Free Thyroxine (T4) Direct 10.8 ug/dL 4.5-12.0 [facility] Creatinine Clearance (Chem N/A [facility] Nucleated erythrocytes [Pres ence] in Blood by Automated countOrdered By: Nataly Toure on 05-28-2022 Nucleated RBC Auto Ql (Bld) 0.4 /100{WBC} 0-0.5 [facility] Platelet mean volume Auto (B ld) [Entitic vol]Ordered By: Nataly Toure on 05-28-2022 Platelet mean volume (Bld) [Entitic vol] 9.0 fL 6.3-10.7 [facility] Platelets Auto (Bld) [#/Vol] Ordered By: Nataly Touer on 05-28-2022 Platelets (Bld) [#/Vol] 247 10*3/uL 150-450 [facility] Potassium [Moles/volume] in Serum or PlasmaOrdered By: Nataly Toure on 05-28-2022 Potassium [Moles/Vol] 3.8 mmol/L 3.5-5.1 [facility] Protein [Mass/volume] in Ser um or PlasmaOrdered By: Nataly Toure on 05-28-2022 Protein [Mass/Vol] 7.5 g/dL 6.4-8.9 [facility] RBC Auto (Bld) [#/Vol]Ordere d By: Nataly Toure on 05-28-2022 RBC (Bld) [#/Vol] 4.80 10*6/uL 3.60-5.00 [facility] Serum or plasma albumin/glob ulin mass ratioOrdered By: Nataly oTure on 05-28-2022 Albumin/Globulin [Mass ratio] 1.1 {ratio} [facility] Serum or plasma anion gap de terminationOrdered By: Nataly Toure on 05-28-2022 Anion gap [Moles/Vol] 12.2 mmol/L 6.0-15.0 [facility] Serum or plasma high density lipoprotein (HDL) cholesterol measurementOrdered By: Nataly Toure on 05-28-2022 Cholesterol in HDL [Mass/Vol] 42 mg/dL 35-85 [facility] Comment on above: HDL CHOL ATP-III CLA SSIFICATION Cardiovascular RiskHDL > or equal to 60 mg/dL LOWHDL < 40 mg/dL HIGH Serum or plasma thyroperoxid ase antibody assay (units/volume)Ordered By: Nataly Toure on 05-28-2022 TPO Ab Qn [IU]/mL 0-34 [facility] Comment on above: Performed at: [address] [id number] Director: Sam Lpoez PhD, Phone: [phone] Serum or plasma total choles terol/high density lipoprotein (HDL) cholesterol mass ratOrdered By: Nataly Toure on 05-28-2022 Cholesterol.total/Chol esterol in HDL [Mass ratio] 6.4 {ratio} <5.0 [facility] Sodium [Moles/volume] in Ser um or PlasmaOrdered By: Nataly Toure on 05-28-2022 Sodium [Moles/Vol] 138 mmol/L 136-145 [facility] TSH DL <= 0.005 mIU/L QnOrde red By: Nataly Toure on 05-28-2022 TSH Qn 2.330 m[IU]/L 0.450-4.50 0 [facility] Transferrin [Mass/volume] in Serum or PlasmaOrdered By: Nataly Toure on 05-28-2022 Transferrin [Mass/Vol] 321 mg/dL 203-362 [facility] Triglyceride [Mass/volume] i n Serum or PlasmaOrdered By: Nataly Toure on 05-28-2022 Triglyceride [Mass/Vol] 939 mg/dL 0-149 [facility] Comment on above: If the [...] T3 [Mass/Vol] 186 ng/dL 71-180 [facility] Triiodothyronine (T3) resin uptake testOrdered By: Nataly Toure on 05-28-2022 T3RU 27 % 24-39 [facility] Urea nitrogen [Mass/volume] in Serum or PlasmaOrdered By: Nataly Toure on 05-28-2022 Urea nitrogen [Mass/Vol] 11 mg/dL 7-25 [facility] WBC Auto (Bld) [#/Vol]Ordere d By: Nataly Toure on 05-28-2022 WBC (Bld) [#/Vol] 7.3 10*3/uL 3.8-11.6 [facility] XR LSPINE 2_3 VIEWSon 2022 [...] PILI MIGUEL Date: 2022-03-15 22:49 Normal [facility] CBC AUTO DIFFon 03-15-2022 BASO # 0.0 103/ul Normal 0.0-0.1 [facility] Comment on above: Performed By: #### P REGU #### [facility] [address] [address] [address] Moris Winter Basophils/100 WBC (Bld) 0.1 % Critically low 0.2-2.0 [facility] Comment on above: Performed By: #### P REGU #### [facility] [address] [address] [address] Moris Winter EO # 0.1 103/ul Normal 0.0-0.7 [facility] Comment on above: Performed By: #### P REGU #### [facility] [address] [address] [address] Moris Winter Eosinophils/100 WBC (Bld) 0.8 % Critically low 0.9-7.0 [facility] Comment on above: Performed By: #### P REGU #### [facility] [address] [place] [address] Dr. Moris Winter Erythrocyte distribution width (RBC) [Ratio] 13.3 % Normal 11.0-15.0 [facility] Comment on above: Performed By: #### P REGU #### [facility] [address] [place] [address] Dr. Moris Winter Hematocrit (Bld) [Volume fraction] 37.4 % Normal 36.0-48.0 [facility] Comment on above: Performed By: #### P REGU #### [facility] [address] [place] [address] Dr. Moris Winter Hemoglobin (Bld) [Mass/Vol] 13.2 g/dL Normal 12.0-16.0 [facility] Comment on above: Performed By: #### P REGU #### [facility] [address] [place] [address] Dr. Moris Winter IG # 0.02 10e3/ul Normal 0.00-0.03 [facility] Comment on above: Performed By: #### P REGU #### [facility] [address] [place] [address] Dr. Moris Winter IG % 0.2 % Normal 0.0-0.5 [facility] Comment on above: Performed By: #### P REGU #### [facility] [address] [place] [address] Dr. Moris Winter LYMPH # 1.2 103/ul Normal 1.2-3.8 [facility] Comment on above: Performed By: #### P REGU #### [facility] [address] [place] [address] Dr. Moris Winter Lymphocytes/100 WBC (Bld) 14.6 % Critically low 20.5-60.0 [facility] Comment on above: Performed By: #### P REGU #### [facility] [address] [place] [address] Dr. Moris Winter MANUAL DIFF REQ NO Normal [facility] Comment on above: Performed By: #### P REGU #### [facility] [address] [place] [address] Dr. Moris Winter MCH (RBC) [Entitic mass] 27.3 pg Normal 26.7-34.0 [facility] Comment on above: Performed By: #### P REGU #### [facility] [address] [place] [address] Dr. Moris Winter MCHC (RBC) [Mass/Vol] 35.3 g/dL Critically high 29.9-35.2 [facility] Comment on above: Performed By: #### P REGU #### [facility] [address] [place] [address] Dr. Moris Winter MCV (RBC) [Entitic vol] 77.3 fL Critically low 81.0-99.0 [facility] Comment on above: Performed By: #### P REGU #### [facility] [address] [place] [address] Dr. Moris Winter MONO # 0.5 103/ul Normal 0.3-0.8 [facility] Comment on above: Performed By: #### P REGU #### [facility] [address] [place] [address] Dr. Moris Winter Monocytes/100 WBC (Bld) 5.4 % Normal 1.7-12.0 [facility] Comment on above: Performed By: #### P REGU #### [facility] [address] [place] [address] Dr. Moris Winter NEUT # 6.5 103/ul Normal 1.4-6.5 [facility] Comment on above: Performed By: #### P REGU #### [facility] [address] [place] [address] Dr. Moris Winter Neutrophils/100 WBC (Bld) 78.9 % Critically high 43.0-75.0 [facility] Comment on above: Performed By: #### P REGU #### [facility] [address] [place] [address] Dr. Moris Winter Platelet mean volume (Bld) [Entitic vol] 10.1 fL Normal 9.5-13.5 [facility] Comment on above: Performed By: #### P REGU #### [facility] [address] [place] [address] Dr. Moris Winter PLT 256 103/ul Normal 150-450 [facility] Comment on above: Performed By: #### P REGU #### [facility] [address] [place] [address] Dr. Moris Winter RBC 4.84 106/ul Normal 4.20-5.40 [facility] Comment on above: Performed By: #### P REGU #### [facility] [address] [place] [address] Dr. Moris Winter WBC 8.3 103/ul Normal 4.0-11.0 [facility] Comment on above: Performed By: #### P REGU #### [facility] [address] [place] [address] Dr. Moris Winter CRPon 03-15-2022 CRP 3.3 mg/dL Critically high <=1.0 [facility] Comment on above: Performed By: #### B MP, CRP #### [facility] [address] [place] [address] Dr. Moris Winter URon 03-15-2022 , QUAL Negative Normal NEGATIVE [facility] Comment on above: Performed By: #### P REGU #### [facility] [address] [place] [address] Dr. Moris Winter PROF CHEM 8 (BAS METB)on Anion gap [Moles/Vol] 15.8 mmol/L Normal [facility] Comment on above: Performed By: #### B MP, CRP #### [facility] [address] [place] [address] Dr. Moris Winter Calcium [Mass/Vol] 8.6 mg/dL Normal 8.5-10.1 [facility] Comment on above: Performed By: #### B MP, CRP #### [facility] [address] [place] [address] Dr. Moris Winter Chloride [Moles/Vol] 98 mmol/L Normal 98-107 [facility] Comment on above: Performed By: #### B MP, CRP #### [facility] [address] [place] [address] Dr. Moris Winter CO2 [Moles/Vol] 26.7 mmol/L Normal 21.0-32.0 [facility] Comment on above: Performed By: #### B MP, CRP #### [facility] [address] [place] [address] Dr. Moris Winter Creatinine [Mass/Vol] 0.80 mg/dL Normal 0.55-1.02 [facility] Comment on above: Performed By: #### B MP, CRP #### [facility] [address] [place] [address] Dr. Moris Winter EGFR-AF URUGUAYAN >60 Normal >=60 [facility] Comment on above: Performed By: #### B MP, CRP #### [facility] [address] [place] [address] Dr. Moris Winter EGFR-NON AF URUGUAYAN >60 Normal >=60 [facility] Comment on above: Performed By: #### B MP, CRP #### [facility] [address] [place] [address] Dr. Moris Winter Glucose [Mass/Vol] 103 mg/dL Normal 74-106 [facility] Comment on above: Performed By: #### B MP, CRP #### [facility] [address] [place] [address] Dr. Moris Winter Potassium [Moles/Vol] 3.5 mmol/L Normal 3.5-5.1 [facility] Comment on above: Performed By: #### B MP, CRP #### [facility] [address] [place] [address] Dr. Moris Winter Sodium [Moles/Vol] 137 mmol/L Normal 136-145 [facility] Comment on above: Performed By: #### B MP, CRP #### [facility] [address] [place] [address] Dr. Moris Winter Urea nitrogen [Mass/Vol] 15.0 mg/dL Normal 7.0-18.0 [facility] Comment on above: Performed By: #### B MP, CRP #### [facility] [address] [address] [address] Moris Winter Urea nitrogen/Creatinine [Mass ratio] 18.8 mg/mg Normal [facility] Comment on above: Performed By: #### B MP, CRP #### [facility] [address] [address] [address] Moris Winter SED RATE [facility] 2022 SED RATE 51 mm/hr Critically high <=20 [facility] Comment on above: Performed By: #### P REGU #### [facility] [address] [address] [address] Moris Winter Amphetamine Screen Ql (U)Ord ered By: TELMA Smith on 10-18-2021 Amphetamines Ql (U) Negative Negative [facility] Automated erythrocytes count in urine sediment (number/area)Ordered By: TELMA Smith on 10-18-2021 RBC Auto (Urine sed) [#/Area] 1-2 [HPF] 0-4 [facility] Automated leukocytes count i n urine sediment (number/area)Ordered By: TELMA Smith on 10-18-2021 WBC Auto (Urine sed) [#/Area] 20-49 [HPF] 0-4 [facility] Barbiturates [Presence] in U rineOrdered By: TELMA Smith on 10-18-2021 Barbiturates Ql (U) Negative Negative [facility] Basophils Auto (Bld) [#/Vol] Ordered By: TELMA Smith on 10-18-2021 Basophils (Bld) [#/Vol] 0.0 10*3/uL 0.0-0.2 [facility] Basophils/100 WBC Auto (Bld) Ordered By: TELMA Smith on 10-18-2021 Basophils/100 WBC (Bld) 0.3 % . [facility] Benzodiazepines [Presence] i n UrineOrdered By: TELMA Smith on 10-18-2021 Benzodiazepines Ql (U) Negative [facility] Bilirubin Test strip Ql (U)O rdered By: TELMA Smith on 10-18-2021 Bilirubin Ql (U) Negative Negative [facility] Blood hemoglobin measurement (mass/volume)Ordered By: TELMA Smith on 10-18-2021 Hemoglobin (Bld) [Mass/Vol] 11.3 g/dL 11.8-15.4 [facility] Blood leukocytes automated c ount (number/volume)Ordered By: TELMA Smith on 10-18-2021 WBC (Bld) [#/Vol] 10.1 10*3/uL 4.5-11.0 [facility] COVID-19 SOFIAOrdered By: MD DESEAN Smith on 10-18-2021 SARS-CoV+SARS-CoV-2 (COVID-19) Ag IA.rapid Ql (Resp) Negative Negative [facility] Comment on above: This is a duplicate [place] SARS Antigen (AUTUMN) result to be used for statistical tracking purpose only. Color Auto (U)Ordered By: MD DESEAN Smith on 10-18-2021 Color (U) Yellow Yellow [facility] Eosinophils Auto (Bld) [#/Vo l]Ordered By: TELMA Smith on 10-18-2021 Eosinophils (Bld) [#/Vol] 0.1 10*3/uL 0.0-0.45 [facility] Eosinophils/100 WBC Auto (Bl d)Ordered By: TELMA Smith on 10-18-2021 Eosinophils/100 WBC (Bld) 1.3 % . [facility] Erythrocyte distribution wid th Auto (RBC) [Ratio]Ordered By: TELMA Smith on 10-18-2021 Erythrocyte distribution width (RBC) [Ratio] 15.6 % 11.9-15.3 [facility] Hematocrit Auto (Bld) [Volum e fraction]Ordered By: TELMA Smith on 10-18-2021 Hematocrit (Bld) [Volume fraction] 34.9 % 34.0-46.4 [facility] Ketones Auto test strip (U) [Mass/Vol]Ordered By: TELMA Smith on 10-18-2021 Ketones (U) [Mass/Vol] Trace Negative [facility] - Drug toxicology Ordered By: TELMA Smith on 10-18-2021 Opiates Ql (U) Negative Negative [facility] - Hematology and Cell countsOrdered By: TELMA Smith on 10-18-2021 Nucleated RBC/100 WBC (Bld) [Ratio] 0.1 % 0-0.5 [facility] - UrinalysisOrder ed By: TELMA Smith on 10-18-2021 Hyaline casts LM Ql (Urine sed) 9-19 [LPF] 0-8 [facility] Lymphocytes Auto (Bld) [#/Vo l]Ordered By: TELMA Smith on 10-18-2021 Lymphocytes (Bld) [#/Vol] 1.7 10*3/uL 1.00-4.8 [facility] Lymphocytes/100 WBC Auto (Bl d)Ordered By: TELMA Smith on 10-18-2021 Lymphocytes/100 WBC (Bld) 17.0 % . [facility] MCH Auto (RBC) [Entitic mass ]Ordered By: TELMA Smith on 10-18-2021 MCH (RBC) [Entitic mass] 25.9 pg 24.7-34.3 [facility] MCHC Auto (RBC) [Mass/Vol]Or dered By: TELMA Smith on 10-18-2021 MCHC (RBC) [Mass/Vol] 32.5 g/dL 32.0-35.0 [facility] MCV Auto (RBC) [Entitic vol] Ordered By: TELMA Smith on 10-18-2021 MCV (RBC) [Entitic vol] 79.6 fL 80-100 [facility] Monocytes Auto (Bld) [#/Vol] Ordered By: TELMA Smith on 10-18-2021 Monocytes (Bld) [#/Vol] 0.8 10*3/uL 0.0-0.8 [facility] Monocytes/100 WBC Auto (Bld) Ordered By: TELMA Smith on 10-18-2021 Monocytes/100 WBC (Bld) 8.1 % . [facility] Neutrophils Auto (Bld) [#/Vo l]Ordered By: TELMA Smith on 10-18-2021 Neutrophils (Bld) [#/Vol] 7.4 10*3/uL 1.8-7.7 [facility] Neutrophils/100 WBC Auto (Bl d)Ordered By: TELMA Smith on 10-18-2021 Neutrophils/100 WBC (Bld) 73.3 % . [facility] Nitrite Test strip Ql (U)Ord ered By: TELMA Smith on 10-18-2021 Nitrite Ql (U) Negative Negative [facility] No Panel InformationOrdered By: TELMA Smith on 10-18-2021 SARS Antigen (LFIA) [facility] Phencyclidine Screen Ql (U)O rdered By: TELMA Smith on 10-18-2021 Phencyclidine Ql (U) Negative Negative [facility] Comment on above: These are unconfirme d results and should not be used for legal purposes. Drug Cut-Off Concentration: AMPH 1000 ng/mL FAVIOLA 200 ng/mL THA 200 ng/mL COCM 300 ng/mL OP 300 ng/mL PCP 25 ng/mL Platelet mean volume Auto (B ld) [Entitic vol]Ordered By: TELMA Smith on 10-18-2021 Platelet mean volume (Bld) [Entitic vol] 9.7 fL 6.3-10.7 [facility] Platelets Auto (Bld) [#/Vol] Ordered By: TELMA Smith on 10-18-2021 Platelets (Bld) [#/Vol] 190 10*3/uL 150-450 [facility] Protein Auto test strip (U) [Mass/Vol]Ordered By: TELMA Smith on 10-18-2021 Protein (U) [Mass/Vol] Trace mg/dL Negative [facility] RBC Auto (Bld) [#/Vol]Ordere d By: TELMA Smith on 10-18-2021 RBC (Bld) [#/Vol] 4.38 10*6/uL 3.60-5.00 [facility] S. agalactiae Org specific c x Ql (Unsp spec)Ordered By: Radha Molina on 10-18-2021 Group B Streptococcus Culture Strep. agalactiae Grp B [facility] Specific gravity Auto test s trip (U) [Rel density]Ordered By: TELMA Smith on 10-18-2021 Specific gravity (U) [Rel density] 1.020 1.001-1.03 0 [facility] Squamous epithelial cells de tection in urine sediment by light microscopyOrdered By: TELMA Smith on 10-18-2021 Epithelial cells.squamous LM Ql (Urine sed) 5-9 [HPF] 0-2 [facility] Urine bacteria detection by automated methodOrdered By: TELMA Smith on 10-18-2021 Bacteria Auto Ql (U) 1+ None Seen [facility] Urine clarity by refractomet ry automatedOrdered By: TELMA Smith on 10-18-2021 Clarity Refractometry automated (U) Cloudy Clear [facility] Urine cocaine detectionOrder ed By: TELMA Smith on 10-18-2021 Cocaine Ql (U) Negative Negative [facility] Urine glucose measurement by automated test strip (mass/volume)Ordered By: SHELLIE Smith on 10-18-2021 Glucose Auto test strip (U) [Mass/Vol] Normal mg/dL Normal [facility] Urine hemoglobin detection b y automated test stripOrdered By: TELMA Smith on 10-18-2021 Hemoglobin Auto test strip Ql (U) Negative Negative [facility] Urine leukocyte esterase det ection by automated test stripOrdered By: TELMA Smith on 10-18-2021 Leukocyte esterase Auto test strip Ql (U) 3+ Negative [facility] Urobilinogen Auto test strip (U) [Mass/Vol]Ordered By: TELMA Smith on 10-18-2021 Urobilinogen (U) [Mass/Vol] Normal mg/dL Normal [facility] pH Auto test strip (U)Ordere d By: TELMA Smith on 10-18-2021 pH (U) 6.5 [pH] 5.0-9.0 [facility] UA (CLEAN/CATCH) RECORDING ENGINEER/MICRO I F IND.on 08-31-2021 Bilirubin Ql (U) Negative Normal NEGATIVE [facility] Comment on above: Performed By: #### U ACSIND, UMICRO #### [facility] [address] [address] [address] Moris Witner Clarity (U) SL CLOUDY Abnormal CLEAR [facility] Comment on above: Performed By: #### U ACSIND, UMICRO #### [facility] [address] [address] [address] Moris Winter Color (U) LT. YELLOW Normal YELLOW [facility] Comment on above: Performed By: #### U ACSIND, UMICRO #### [facility] [address] [place] [address] Dr. Moris Winter Glucose Ql (U) Negative Normal NEGATIVE [facility] Comment on above: Performed By: #### U ACSIND, UMICRO #### [facility] [address] [address] [address] Moris Winter Hemoglobin Ql (U) TRACE-INTACT Abnormal NEGATIVE [facility] Comment on above: Performed By: #### U ACSIND, UMICRO #### [facility] [address] [address] [address] Moris Winter Ketones Ql (U) Negative Normal NEGATIVE [facility] Comment on above: Performed By: #### U ACSIND, UMICRO #### [facility] [address] [address] [address] Moris Winter LEUKOCYTES TRACE Abnormal NEGATIVE [facility] Comment on above: Performed By: #### U ACSIND, UMICRO #### [facility] [address] [address] [address] Moris Winter Nitrite Ql (U) Negative Normal NEGATIVE [facility] Comment on above: Performed By: #### U ACSIND, UMICRO #### [facility] [address] [address] [address] Moris Winter pH (U) 7.0 [pH] Normal 5-9 [facility] Comment on above: Performed By: #### U ACSNARENDRA UMICRO #### [facility] [address] [place] [address] Dr. Moris Winter SPEC GRAVITY 1.010 Normal 1.005-<=1. 025 [facility] Comment on above: Performed By: #### U ACSNARENDRA UMICRO #### [facility] [address] [place] [address] Dr. Moris Winter UA PROTEIN Negative Normal NEGATIVE/ TRACE [facility] Comment on above: Performed By: #### U ACSNARENDRA UMICRO #### [facility] [address] [place] [address] Dr. Moris Winter UR MICRO IND INDICATED Normal [facility] Comment on above: Performed By: #### U ACSNARENDRA UMICRO #### [facility] [address] [place] [address] Dr. Moris Winter Urobilinogen Qn (U) 0.2 {Marcin'U}/dL Normal 0.2 - 1. 0 [facility] Comment on above: Performed By: #### U ACSNARENDRA UMICRO #### [facility] [address] [place] [address] Dr. Moris Winter URINE MICROSCOPIC ONLYon BACTERIA NONE SEEN Normal NONE SEEN [facility] Comment on above: Performed By: #### U ACSNARENDRA UMICRO #### [facility] [address] [place] [address] Dr. Moris Winter Bacteria identified Cx Nom (U) NOT INDICATED Normal [facility] Comment on above: Performed By: #### U ACSNARENDRA UMICRO #### [facility] [address] [place] [address] Dr. Moris Winter CAST NONE SEEN Normal NONE SEEN [facility] Comment on above: Performed By: #### U ACSIND UMICRO #### [facility] [address] [place] [address] Dr. Moris Winter Crystals LM Nom (Urine sed) NONE SEEN Normal NONE SEEN [facility] Comment on above: Performed By: #### U ACSIND, UMICRO #### [facility] [address] [address] [address] Moris Winter Epithelial cells LM Ql (Urine sed) MODERATE Abnormal NONE SEEN /RARE [facility] Comment on above: Performed By: #### U ACSIND, UMICRO #### [facility] [address] [address] [address] Moris Winter MUCOUS NONE SEEN Normal NONE SEEN [facility] Comment on above: Performed By: #### U ACSIND, UMICRO #### [facility] [address] [address] [address] Moris Winter RBC 0-2 Normal 0-2 [facility] Comment on above: Performed By: #### U ACSIND, UMICRO #### [facility] [address] [address] [address] Moris Winter WBC 0-2 Abnormal NONE SEEN [facility] Comment on above: Performed By: #### U ACSIND, UMICRO #### [facility] [address] [address] [address] Moris Winter Covid-19 PCR ([facility])on 07-17 SARS-CoV-2 (COVID-19) RNA SVETLANA+probe Ql (Unsp spec) Detected Critically abnormal NOT DETECTED [facility] Comment on above: Result Comment: This test is not yet approved or cleared by the [place] FDA. When there are no FDA-approved or cleared tests available, and other criteria are met, FDA can make tests available under an emergency access mechanism called an Emergency Use Authorization (EUA). The EUA for this test is supported by the [place] of Health and Human Service's declaration that [...] used). Performed By: #### P REGU #### [facility] [address] [place] [address] Dr. Moris Winter INFLUENZA A AND B AGon 08-08 INFLUANE SEE BELOW Normal [facility] Comment on above: Result Comment: Nega tive for Flu A protein angiten. Infection due to Flu A cannot be ruled out. Flu A angiten in the sample may be below the detection limit of the test. Performed By: #### P REGU #### [facility] [address] [place] [address] Dr. Moris Winter INFLUBNEG SEE BELOW Normal [facility] Comment on above: Result Comment: Nega tive for Flu B protein antigen. Infection due to Flu B cannot be ruled out. Flu B antigen in the sample may be below the detection limit of the test. Performed By: #### P REGU #### [facility] [address] [place] [address] Dr. Moris Winter INFLUENZA A AG Negative Normal NEGATIVE SEE COMMENT [facility] Comment on above: Performed By: #### P REGU #### [facility] [address] [place] [address] Dr. Moris Winter INFLUENZA B AG Negative Normal NEGATIVE SEE COMMENT [facility] Comment on above: Performed By: #### P REGU #### [facility] [address] [place] [address] Dr. Moris Winter INTERNAL CONTROLS Within Normal Limits Normal Wi thin Normal Limits [facility] Comment on above: Performed By: #### P REGU #### [facility] [address] [place] [address] Dr. Moris Winter Serum or plasma beta choriog onadotropin measurement (units/volume)Ordered By: Radha Molina on 07-21-2021 [place] [address].00 m[IU]/mL [facility] Comment on above: Approximate Approxim ate hCG Gestational Age Range (mIU/ml) (weeks) 0.2-1 5-50 1-2 50-500 2-3 100-5,000 3-4 500-10,000 4-5 1,000-50,000 5-6 10,000-100,000 6-8 15,000-200,000 8-12 10,000-100,000 Operative Reporton 9 Operative Report MR#: [id number] [facility] Pt. Name: Rosette Alba Room [...] placed Adaptic under the skin using a [place] and tied this down with a 5-0 [...] Carballo MD Date Trans: 08/03/2018 08:27 P/antony [id number] cc: Soraya Romo [address] [place] [id number] Normal [facility] POC GLUCOSE LABon 08-03-2018 Glucose [Mass/Vol] 105 mg/dL High 70-100 [facility] Comment on above: Performed By: #### [id number] #### [facility] [address] [place] [address], [facility] POC URINE PREGNANCYon 2018 Beta HCG ( test) Ql (U) Negative Normal NEGATIVE [facility] Comment on above: Result Comment: Perf ormed in PACU Performed By: #### [id number] #### [facility] [address] Vital Signs Date Time Vital Sign Value Performing Clinician Facility 06-15-2024 14:03-0400 Body mass index (BMI) [Ratio] 42.3 kg/m2 Riya Alexander C[employer] Work Phone: [facility] 06-15-2024 14:03-0400 Body weight 108.32 kg Riya Alexander [employer] Work Phone: [facility] 06-15-2024 14:03-0400 Diastolic blood pressure 70 mm[Hg] Riya Alexander [employer] Work Phone: [facility] 06-15-2024 14:03-0400 Systolic blood pressure 118 mm[Hg] Riya Catherine [employer] Work Phone: [facility] 06-01-2024 09:56-0400 Body mass index (BMI) [Ratio] 41.72 kg/m2 Camacho Mary DO Work Phone: [facility] 06-01-2024 09:56-0400 Body weight 106.82 kg Camacho Mary DO Work Phone: [facility] 06-01-2024 09:56-0400 Diastolic blood pressure 66 mm[Hg] Camacho Mary DO Work Phone: [facility] 06-01-2024 09:56-0400 Systolic blood pressure 110 mm[Hg] Camacho Mary DO Work Phone: [facility] 05-29-2024 12:36-0400 Body mass index (BMI) [Ratio] 40.57 kg/m2 Trudy Cool [employer] Work Phone: [facility] 05-29-2024 12:36-0400 Body temperature 98.2 [degF] Trudy Cool [employer] Work Phone: [facility] 05-29-2024 12:36-0400 Body weight 103.87 kg Trudy Cool [employer] Work Phone: [facility] 05-29-2024 12:36-0400 Heart rate 113 /min Trudy Cool [employer] Work Phone: [facility] 05-29-2024 12:36-0400 SaO2% (BldA) [Mass fraction] 97 % Trudy Cool [employer] Work Phone: [facility] 05-04-2024 11:14-0400 Body mass index (BMI) [Ratio] 40.59 kg/m2 Camacho Mary DO Work Phone: [facility] 05-04-2024 11:14-0400 Body weight 103.93 kg Camacho Mary DO Work Phone: [facility] 05-04-2024 11:14-0400 Diastolic blood pressure 70 mm[Hg] Camacho Mary DO Work Phone: [facility] 05-04-2024 11:14-0400 Systolic blood pressure 126 mm[Hg] Camacho Mary DO Work Phone: [facility] 04-13-2024 11:56-0500 Body height 160 cm Ni Carroll MD Work Phone: [facility] 04-13-2024 11:56-0500 Body mass index (BMI) [Ratio] 40.19 kg/m2 Ni Carroll MD Work Phone: [facility] 04-13-2024 11:56-0500 Body weight 102.88 kg Ni Carroll MD Work Phone: [facility] 04-13-2024 11:56-0500 Diastolic blood pressure 64 mm[Hg] Ni Carroll MD Work Phone: [facility] 04-13-2024 11:56-0500 Heart rate 98 /min Ni Carroll MD Work Phone: [facility] 04-13-2024 11:56-0500 Systolic blood pressure 116 mm[Hg] Ni Carroll MD Work Phone: [facility] 04-06-2024 11:45-0500 Body mass index (BMI) [Ratio] 40.46 kg/m2 Kim Khoury PA Work Phone: [facility] 04-06-2024 11:45-0500 Body weight 103.6 kg Kim Khoury PA Work Phone: [facility] 04-06-2024 11:45-0500 Diastolic blood pressure 70 mm[Hg] Kim Khoury PA Work Phone: [facility] 04-06-2024 11:45-0500 Systolic blood pressure 114 mm[Hg] Kim Khoury PA Work Phone: [facility] 03-09-2024 10:38-0500 Body mass index (BMI) [Ratio] 39.17 kg/m2 Camacho Mary DO Work Phone: [facility] 03-09-2024 10:38-0500 Body weight 100.31 kg Camacho Mary DO Work Phone: [facility] 03-09-2024 10:38-0500 Diastolic blood pressure 60 mm[Hg] Camacho Mary DO Work Phone: [facility] 03-09-2024 10:38-0500 Systolic blood pressure 116 mm[Hg] Camacho Mary DO Work Phone: [facility] 10-20-2023 08:28-0400 Body height 160.02 cm C[employer] Nataly Spasic Work Phone: [facility] 10-20-2023 08:28-0400 Body mass index (BMI) [Ratio] 38 kg/m2 [employer] Nataly Spasic Work Phone: [facility] 10-20-2023 08:28-0400 Body temperature 97.7 [degF] C[employer] Nataly Spasic Work Phone: [facility] 10-20-2023 08:28-0400 Body weight 97.52 kg CUT OFF [employer] Nataly Spasic Work Phone: [facility] 10-20-2023 08:28-0400 Diastolic blood pressure 74 mm[Hg] C[employer] Nataly Spasic Work Phone: [facility] 10-20-2023 08:28-0400 Heart rate 75 /min C[employer] Nataly Spasic Work Phone: [facility] 10-20-2023 08:28-0400 Respiratory rate 18 /min C[employer] Nataly Spasic Work Phone: [facility] 10-20-2023 08:28-0400 SaO2% (BldA) [Mass fraction] 99 % C[employer] Nataly Spasic Work Phone: [facility] 10-20-2023 08:28-0400 Systolic blood pressure 107 mm[Hg] C[employer] OFF [employer] Nataly Spasic Work Phone: [facility] 10-04-2023 22:40-0400 Body height 160.02 cm CUT OFF [employer] Nataly Spasic Work Phone: [facility] 10-04-2023 22:40-0400 Body temperature 97.7 [degF] C[employer] Nataly Spasic Work Phone: [facility] 10-04-2023 22:40-0400 Body weight 95.5 kg C[employer] OFF [employer] Nataly Spasic Work Phone: [facility] 10-04-2023 22:40-0400 Diastolic blood pressure 75 mm[Hg] C[employer] OFF [employer] Nataly Spasic Work Phone: [facility] 10-04-2023 22:40-0400 Heart rate 95 /min CUT OFF [employer] Nataly Spasic Work Phone: [facility] 10-04-2023 22:40-0400 Respiratory rate 16 /min CUT OFF [employer] Nataly Spasic Work Phone: [facility] 10-04-2023 22:40-0400 SaO2% (BldA) [Mass fraction] 98 % C[employer] Nataly Spasic Work Phone: [facility] 10-04-2023 22:40-0400 Systolic blood pressure 132 mm[Hg] C[employer] Nataly Spasic Work Phone: [facility] 09-26-2023 21:36-0400 Body temperature 98.1 [degF] C[employer] Nataly Spasic Work Phone: [facility] 09-26-2023 21:36-0400 Diastolic blood pressure 74 mm[Hg] C[employer] Nataly Spasic Work Phone: [facility] 09-26-2023 21:36-0400 Heart rate 90 /min CUT OFF [employer]W [employer]PER[employer] BLANKS-C Nataly Spasic Work Phone: [facility] 09-26-2023 21:36-0400 Respiratory rate 16 /min CUT OFF SAW OPERATOR PIPE BLANKS-C Nataly Spasic Work Phone: [facility] 09-26-2023 21:36-0400 SaO2% (BldA) [Mass fraction] 99 % CUT OFF SAW OPERATOR PIPE BLANKS-C Nataly Spasic Work Phone: [facility] 09-26-2023 21:36-0400 Systolic blood pressure 145 mm[Hg] CUT OFF SAW OPERATOR PIPE BLANKS-C Nataly Spasic Work Phone: [facility] 09-26-2023 21:35-0400 Body height 160.02 cm CUT OFF SAW OPERATOR PIPE BLANKS-C Nataly Spasic Work Phone: [facility] 09-26-2023 21:35-0400 Body weight 96.7 kg CUT OFF SAW OPERATOR PIPE BLANKS-C Nataly Spasic Work Phone: [facility] 08-20-2023 23:05-0400 Body height 160.02 cm CUT OFF SAW OPERATOR PIPE BLANKS-C Nataly Spasic Work Phone: [facility] 08-20-2023 23:05-0400 Body temperature 98.3 [degF] CUT OFF SAW OPERATOR PIPE BLANKS-C Nataly Spasic Work Phone: [facility] 08-20-2023 23:05-0400 Body weight 97.5 kg CUT OFF SAW OPERATOR PIPE BLANKS-C Nataly Spasic Work Phone: [facility] 08-20-2023 23:05-0400 Diastolic blood pressure 66 mm[Hg] CUT OFF SAW OPERATOR PIPE BLANKS-C Nataly Spasic Work Phone: [facility] 08-20-2023 23:05-0400 Heart rate 90 /min CUT OFF SAW OPERATOR PIPE BLANKS-C Nataly Spasic Work Phone: [facility] 08-20-2023 23:05-0400 Respiratory rate 20 /min CUT OFF SAW OPERATOR PIPE BLANKS-C Nataly Spasic Work Phone: [facility] 08-20-2023 23:05-0400 SaO2% (BldA) [Mass fraction] 99 % CUT OFF SAW OPERATOR PIPE BLANKS-C Nataly Spasic Work Phone: [facility] 08-20-2023 23:05-0400 Systolic blood pressure 136 mm[Hg] CUT OFF SAW OPERATOR PIPE BLANKS-C Nataly Spasic Work Phone: [facility] 02-13-2023 21:40-0500 Body temperature 97.7 [degF] CUT OFF SAW OPERATOR PIPE BLANKS-C Nataly Spasic Work Phone: [facility] 02-13-2023 21:40-0500 Diastolic blood pressure 87 mm[Hg] CUT OFF SAW OPERATOR PIPE BLANKS-C Nataly Spasic Work Phone: [facility] 02-13-2023 21:40-0500 Heart rate 100 /min CUT OFF SAW OPERATOR PIPE BLANKS-C Nataly Spasic Work Phone: [facility] 02-13-2023 21:40-0500 Respiratory rate 18 /min CUT OFF SAW OPERATOR PIPE BLANKS-C Nataly Spasic Work Phone: [facility] 02-13-2023 21:40-0500 SaO2% (BldA) [Mass fraction] 96 % CUT OFF SAW OPERATOR PIPE BLANKS-C Nataly Spasic Work Phone: [facility] 02-13-2023 21:40-0500 Systolic blood pressure 140 mm[Hg] CUT OFF SAW OPERATOR PIPE BLANKS-C Nataly Spasic Work Phone: [facility] 02-13-2023 11:10-0500 Body height 160.02 cm CUT OFF SAW OPERATOR PIPE BLANKS-C Nataly Spasic Work Phone: [facility] 02-13-2023 11:10-0500 Body weight 99.79 kg CUT OFF SAW OPERATOR PIPE BLANKS-C Nataly Spasic Work Phone: [facility] 02-01-2023 19:30-0500 Body temperature 97.3 [degF] CUT OFF SAW OPERATOR PIPE BLANKS-C Nataly Spasic Work Phone: [facility] 02-01-2023 19:30-0500 Diastolic blood pressure 75 mm[Hg] CUT OFF SAW OPERATOR PIPE BLANKS-C Nataly Spasic Work Phone: [facility] 02-01-2023 19:30-0500 Heart rate 94 /min CUT OFF SAW OPERATOR PIPE BLANKS-C Nataly Spasic Work Phone: [facility] 02-01-2023 19:30-0500 Respiratory rate 14 /min CUT OFF SAW OPERATOR PIPE BLANKS-C Nataly Spasic Work Phone: [facility] 02-01-2023 19:30-0500 SaO2% (BldA) [Mass fraction] 98 % CUT OFF SAW OPERATOR PIPE BLANKS-C Nataly Spasic Work Phone: [facility] 02-01-2023 19:30-0500 Systolic blood pressure 123 mm[Hg] CUT OFF SAW OPERATOR PIPE BLANKS-C Nataly Spasic Work Phone: [facility] 01-31-2023 09:00-0500 Body temperature 98 [degF] CUT OFF SAW OPERATOR PIPE BLANKS-C Nataly Spasic Work Phone: [facility] 01-31-2023 09:00-0500 Respiratory rate 16 /min CUT OFF SAW OPERATOR PIPE BLANKS-C Nataly Spasic Work Phone: [facility] 01-31-2023 08:46-0500 Diastolic blood pressure 57 mm[Hg] CUT OFF SAW OPERATOR PIPE BLANKS-C Nataly Spasic Work Phone: [facility] 01-31-2023 08:46-0500 Heart rate 112 /min CUT OFF SAW OPERATOR PIPE BLANKS-C Nataly Spasic Work Phone: [facility] 01-31-2023 08:46-0500 Systolic blood pressure 112 mm[Hg] CUT OFF SAW OPERATOR PIPE BLANKS-C Nataly Spasic Work Phone: [facility] 01-31-2023 06:31-0500 SaO2% (BldA) [Mass fraction] 96 % CUT OFF SAW OPERATOR PIPE BLANKS-C Nataly Spasic Work Phone: [facility] 01-31-2023 00:08-0500 Body height 160.02 cm CUT OFF SAW OPERATOR PIPE BLANKS-C Nataly Spasic Work Phone: [facility] 01-31-2023 00:08-0500 Body weight 97.52 kg CUT OFF SAW OPERATOR PIPE BLANKS-C Nataly Spasic Work Phone: [facility] 01-21-2023 09:56-0500 Body height 157.48 cm CUT OFF SAW OPERATOR PIPE BLANKS-C Nataly Spasic Work Phone: [facility] 01-21-2023 09:56-0500 Body weight 81.64 kg CUT OFF SAW OPERATOR PIPE BLANKS-C Nataly Spasic Work Phone: [facility] 12-01-2022 18:06-0400 Diastolic blood pressure 75 mm[Hg] CUT OFF SAW OPERATOR PIPE BLANKS-C Nataly Spasic Work Phone: [facility] 12-01-2022 18:06-0400 Heart rate 109 /min CUT OFF SAW OPERATOR PIPE BLANKS-C Nataly Spasic Work Phone: [facility] 12-01-2022 18:06-0400 Respiratory rate 17 /min CUT OFF SAW OPERATOR PIPE BLANKS-C Nataly Spasic Work Phone: [facility] 12-01-2022 18:06-0400 SaO2% (BldA) [Mass fraction] 99 % CUT OFF SAW OPERATOR PIPE BLANKS-C Nataly Spasic Work Phone: [facility] 12-01-2022 18:06-0400 Systolic blood pressure 123 mm[Hg] CUT OFF SAW OPERATOR PIPE BLANKS-C Nataly Spasic Work Phone: [facility] 12-01-2022 14:32-0400 Body height 160.02 cm CUT OFF SAW OPERATOR PIPE BLANKS-C Nataly Spasic Work Phone: [facility] 12-01-2022 14:32-0400 Body temperature 97.6 [degF] CUT OFF SAW OPERATOR PIPE BLANKS-C Nataly Spasic Work Phone: [facility] 12-01-2022 14:32-0400 Body weight 101.2 kg CUT OFF SAW OPERATOR PIPE BLANKS-C Nataly Spasic Work Phone: [facility] 11-20-2022 19:00-0400 Respiratory rate 16 /min CUT OFF SAW OPERATOR PIPE BLANKS-C Nataly Spasic Work Phone: [facility] 11-20-2022 18:14-0400 Diastolic blood pressure 65 mm[Hg] CUT OFF SAW OPERATOR PIPE BLANKS-C Nataly Spasic Work Phone: [facility] 11-20-2022 18:14-0400 Heart rate 100 /min CUT OFF SAW OPERATOR PIPE BLANKS-C Nataly Spasic Work Phone: [facility] 11-20-2022 18:14-0400 Systolic blood pressure 131 mm[Hg] CUT OFF SAW OPERATOR PIPE BLANKS-C Nataly Spasic Work Phone: [facility] 11-20-2022 18:05-0400 SaO2% (BldA) [Mass fraction] 99 % CUT OFF SAW OPERATOR PIPE BLANKS-C Nataly Spasic Work Phone: [facility] 11-20-2022 17:21-0400 Body height 160.02 cm CUT OFF SAW OPERATOR PIPE BLANKS-C Nataly Spasic Work Phone: [facility] 11-20-2022 17:21-0400 Body weight 98.88 kg CUT OFF SAW OPERATOR PIPE BLANKS-C Nataly Spasic Work Phone: [facility] 11-19-2022 13:49-0400 Respiratory rate 16 /min CUT OFF SAW OPERATOR PIPE BLANKS-C Nataly Spasic Work Phone: [facility] 11-19-2022 13:30-0400 Body temperature 97.4 [degF] CUT OFF SAW OPERATOR PIPE BLANKS-C Nataly Spasic Work Phone: [facility] 11-19-2022 12:53-0400 Diastolic blood pressure 71 mm[Hg] CUT OFF SAW OPERATOR PIPE BLANKS-C Nataly Spasic Work Phone: [facility] 11-19-2022 12:53-0400 Heart rate 109 /min CUT OFF SAW OPERATOR PIPE BLANKS-C Nataly Spasic Work Phone: [facility] 11-19-2022 12:53-0400 Systolic blood pressure 125 mm[Hg] CUT OFF SAW OPERATOR PIPE BLANKS-C Nataly Spasic Work Phone: [facility] 11-19-2022 12:49-0400 SaO2% (BldA) [Mass fraction] 99 % CUT OFF SAW OPERATOR PIPE BLANKS-C Nataly Spasic Work Phone: [facility] 11-19-2022 12:23-0400 Body height 160.02 cm CUT OFF SAW OPERATOR PIPE BLANKS-C Nataly Spasic Work Phone: [facility] 11-19-2022 12:23-0400 Body weight 98.88 kg CUT OFF SAW OPERATOR PIPE BLANKS-C Nataly Spasic Work Phone: [facility] 10-18-2021 05:08-0400 Diastolic blood pressure 58 mm[Hg] DO Obdulia Oneil Work Phone: [facility] 10-18-2021 05:08-0400 Heart rate 96 /min DO Obdulia Oneil Work Phone: [facility] 10-18-2021 05:08-0400 SaO2% (BldA) [Mass fraction] 98 % DO Obdulia Oneil Work Phone: [facility] 10-18-2021 05:08-0400 Systolic blood pressure 118 mm[Hg] DO Obdulia Oneil Work Phone: [facility] 10-18-2021 05:00-0400 Body temperature 98.3 [degF] DO Obdulia Oneil Work Phone: [facility] 10-18-2021 05:00-0400 Respiratory rate 16 /min DO Obdulia Oneil Work Phone: [facility] 10-18-2021 01:57-0400 Body weight 102.51 kg DO Obdulia Oneil Work Phone: [facility] 10-18-2021 01:31-0400 Body height 160.02 cm DO Obdulia Oneil Work Phone: [facility] Encounters Encounter Date Encounter Type Care Provider Facility Start: 06-26-2024 End: 06-26-2024 Clinisync Result Encounter Camacho Mary DO Work Phone: [facility] External Department Unsolicited Start: 06-26-2024 End: 06-26-2024 Clinisync Result Encounter Camacho Mary DO Work Phone: [facility] External Department Unsolicited Start: 06-15-2024 End: 06-15-2024 Bamboo flowsheet Riya Alexander CUT OFF SAW OPERATOR PIPE BLANKS Work Phone: [facility] Start: 06-15-2024 End: 06-15-2024 Bamboo flowsheet Riya Alexander CUT OFF SAW OPERATOR PIPE BLANKS Work Phone: [facility] Start: 06-15-2024 End: 06-15-2024 Office outpatient visit 15 minutes Riya Alexander CUT OFF SAW OPERATOR PIPE BLANKS Work Phone: [facility] Comment on above: Elevated glucose rayo erance test (Primary Dx); 30 weeks gestation of ; Third trimester Start: 06-15-2024 End: 06-15-2024 ambulatory RIYA CATHERINE Not Available Start: 06-08-2024 End: 06-08-2024 ambulatory CAMACHO MARY Not Available Start: 06-01-2024 End: 06-01-2024 Office outpatient visit 15 minutes Camacho Mary DO Work Phone: [facility] Comment on above: Third trimester preg sascha; 28 weeks gestation of ; Upper respiratory tract infection, unspecified type; Chronic cluster headache, not intractable; History of delivery, currently ; Diet controlled gestational diabetes mellitus (GDM) in third trimester; Polyhydramnios affecting in third trimester Start: 06-01-2024 End: 06-01-2024 ambulatory CAMACHO MARY Not Available Start: 05-29-2024 End: 05-29-2024 Office outpatient new 45 minutes Trudy Cool CUT OFF SAW OPERATOR PIPE BLANKS Work Phone: [facility] Comment on above: Strep throat (Primar y Dx); Pharyngitis, unspecified etiology; 27 weeks gestation of Start: 05-29-2024 End: 05-29-2024 ambulatory TRUDY COOL Not Available Start: 05-25-2024 End: 05-25-2024 Clinisync Result Encounter Camacho Mary DO Work Phone: [facility] External Department Unsolicited Start: 05-25-2024 End: 05-25-2024 Clinisync Result Encounter Caamcho Mary DO Work Phone: [facility] External Department Unsolicited Start: 05-04-2024 End: 05-04-2024 Office outpatient visit 15 minutes Camacho Mary DO Work Phone: [facility] Comment on above: Short cervix, antepa rtum (Primary Dx); 24 weeks gestation of ; Second trimester ; Diabetes mellitus screening; Nonintractable headache, unspecified chronicity pattern, unspecified headache type Start: 05-04-2024 End: 05-04-2024 ambulatory CAMACHO MARY Not Available Start: 05-03-2024 End: 05-03-2024 ambulatory NI CARROLL [facility] Start: 04-14-2024 End: 04-14-2024 Clinisync Result Encounter Camacho Mary DO Work Phone: [facility] External Department Unsolicited Start: 04-14-2024 End: 04-14-2024 Clinisync Result Encounter Camacho Mary DO Work Phone: [facility] External Department Unsolicited Start: 04-13-2024 End: 04-13-2024 Office consultation new/estab patient 60 min Ni Carroll MD Work Phone: [facility] Comment on above: delivery aft er section (Primary Dx) Start: 04-13-2024 End: 04-13-2024 Orders Only Berenice Vyas RN [facility] Comment on above: History of d nay, [...] Carroll MD Work Phone: [facility] Start: 03-14-2024 End: 03-14-2024 Clinisync Result Encounter Camacho Hernandez DO Work [...] above: GA: 11w1d Start: 11-03-2023 ambulatory Nataly Torres Spasic Facility :[facility] Start: 10-20-2023 Registered Recurring CUT OFF SAW OPERATOR PIPE BLANKS-C Andrez sommer Spasic Work Phone: [facility] Work Phone: Start: 10-20-2023 End: 10-20-2023 ambulatory CUT OFF SAW OPERATOR PIPE BLANKS-C Nataly Torres Spasic Work Phone: [facility] Work Phone: Start: 10-20-2023 End: 10-20-2023 Patient encounter procedure CUT OFF SAW OPERATOR PIPE BLANKS-C Nataly Spasic Work Phone: [facility] Work Phone: Start: 10-07-2023 End: 10-07-2023 Patient encounter procedure CUT OFF SAW OPERATOR PIPE BLANKS-C Nataly Spasic Work Phone: [facility]Ul[facility] [place] Work Phone: Start: 10-07-2023 End: 10-07-2023 ambulatory CUT OFF SAW OPERATOR PIPE BLANKS-C Nataly E Spasic Work Phone: [facility] Work Phone: Start: 10-04-2023 End: 10-05-2023 Emergency department patient visit CUT OFF SAW OPERATOR PIPE BLANKS-C Nataly Spasic Work Phone: [facility]Emergency [facility] Work Phone: Start: 09-30-2023 End: 09-30-2023 ambulatory CUT OFF SAW OPERATOR PIPE BLANKS-C Nataly E Spasic Work Phone: [facility] Work Phone: Start: 09-30-2023 End: 09-30-2023 Departed Referred CUT OFF SAW OPERATOR PIPE BLANKS-C Nataly Spasic Work Phone: [facility] [place] Work Phone: Start: 09-26-2023 End: 09-27-2023 Emergency department patient visit CUT OFF SAW OPERATOR PIPE BLANKS-C Nataly Spasic Work Phone: [facility] Work Phone: Start: 08-20-2023 End: 08-21-2023 Emergency department patient visit CUT OFF SAW OPERATOR PIPE BLANKS-C Nataly Spasic Work Phone: [facility] Work Phone: Start: 08-03-2023 End: 08-03-2023 ambulatory Nataly E Spasic [facility] Work Phone: Start: 08-03-2023 End: 08-03-2023 Departed Referred CUT OFF SAW OPERATOR PIPE BLANKS-C Nataly Spasic Work Phone: [facility] Start: 04-15-2023 End: 04-15-2023 ambulatory Nataly E Spasic Facility:[facility] Start: 03-17-2023 End: 03-17-2023 Patient encounter procedure PHYSICIAN NO [facility] [place] Work Phone: Start: 03-17-2023 End: 03-17-2023 ambulatory PHYSICIAN NO [facility] Work Phone: Start: 03-04-2023 End: 03-04-2023 ambulatory PHYSICIAN NO [facility] Work Phone: Start: 03-04-2023 End: 03-04-2023 Departed Referred PHYSICIAN NO [facility] Start: 02-13-2023 End: 02-13-2023 Evaluation and management of inpatient CUT OFF SAW OPERATOR PIPE BLANKS-C Nataly Spasic Work Phone: [facility] [place] Work Phone: Start: 02-01-2023 End: 02-01-2023 Patient encounter procedure CUT OFF SAW OPERATOR PIPE BLANKS-C Nataly Spasic Work Phone: [facility] Labor - O/P Start: 02-01-2023 End: 02-01-2023 ambulatory CUT OFF SAW OPERATOR PIPE BLANKS-C Nataly E Spasic Work Phone: [facility] Work Phone: Start: 01-30-2023 End: 01-31-2023 Patient encounter procedure CUT OFF SAW OPERATOR PIPE BLANKS-C Nataly Spasic Work Phone: [facility] - O/P Start: 01-30-2023 End: 01-31-2023 ambulatory CUT OFF SAW OPERATOR PIPE BLANKS-C Nataly E Spasic Work Phone: [facility] Work Phone: Start: 01-22-2023 End: 01-22-2023 Patient encounter procedure CUT OFF SAW OPERATOR PIPE BLANKS-C Nataly Spasic Work Phone: [facility] Labor - O/P Start: 01-22-2023 End: 01-22-2023 ambulatory CUT OFF SAW OPERATOR PIPE BLANKS-C Nataly E Spasic Work Phone: [facility] Work Phone: Start: 01-21-2023 End: 01-21-2023 Patient encounter procedure CUT OFF SAW OPERATOR PIPE BLANKS-C Nataly Spasic Work Phone: [facility] - O/P Start: 01-21-2023 End: 01-21-2023 ambulatory CUT OFF SAW OPERATOR PIPE BLANKS-C Nataly E Spasic Work Phone: [facility] Work Phone: Start: 01-05-2023 End: 01-05-2023 ambulatory CUT OFF SAW OPERATOR PIPE BLANKS-C Nataly E Spasic Work Phone: [facility] Work Phone: Start: 01-05-2023 End: 01-05-2023 Departed Referred CUT OFF SAW OPERATOR PIPE BLANKS-C Nataly Spasic Work Phone: [facility] [place] Work Phone: Start: 12-22-2022 End: 12-22-2022 Patient encounter procedure CUT OFF SAW OPERATOR PIPE BLANKS-C Nataly Spasic Work Phone: [facility] [place] Work Phone: Start: 12-22-2022 End: 12-22-2022 ambulatory CUT OFF SAW OPERATOR PIPE BLANKS-C Nataly E Spasic Work Phone: [facility] Work Phone: Start: 12-08-2022 End: 12-08-2022 ambulatory CUT OFF SAW OPERATOR PIPE BLANKS-C Nataly E Spasic Work Phone: [facility] Work Phone: Start: 12-08-2022 End: 12-08-2022 Departed Referred CUT OFF SAW OPERATOR PIPE BLANKS-C Nataly Spasic Work Phone: [facility] [place] Work Phone: Start: 12-03-2022 End: 12-03-2022 ambulatory CUT OFF SAW OPERATOR PIPE BLANKS-C Nataly E Spasic Work Phone: [facility] Work Phone: Start: 12-03-2022 End: 12-03-2022 Departed Referred CUT OFF SAW OPERATOR PIPE BLANKS-C Nataly Spasic Work Phone: [facility] Start: 12-01-2022 End: 12-01-2022 Emergency department patient visit CUT OFF SAW OPERATOR PIPE BLANKS-C Nataly Spasic Work Phone: [facility]Emer[facility] Work Phone: Start: 11-21-2022 End: 11-21-2022 ambulatory CUT OFF SAW OPERATOR PIPE BLANKS-C Nataly E Spasic Work Phone: [facility] Work Phone: Start: 11-21-2022 End: 11-21-2022 Patient encounter procedure CUT OFF SAW OPERATOR PIPE BLANKS-C Nataly Spasic Work Phone: [facility] [place] [facility] - [facility] Start: 11-20-2022 End: 11-20-2022 ambulatory CUT OFF SAW OPERATOR PIPE BLANKS-C Nataly E Spasic Work Phone: [facility] Work Phone: Start: 11-20-2022 End: 11-20-2022 Patient encounter procedure CUT OFF SAW OPERATOR PIPE BLANKS-C Nataly Spasic Work Phone: [facility] - [facility] Start: 11-19-2022 End: 11-19-2022 ambulatory CUT OFF SAW OPERATOR PIPE BLANKS-C Nataly E Spasic Work Phone: [facility] Work Phone: Start: 11-19-2022 End: 11-19-2022 Patient encounter procedure CUT OFF SAW OPERATOR PIPE BLANKS-C Nataly Spasic Work Phone: [facility] - [facility]P Start: 07-13-2022 End: 07-14-2022 ambulatory YNES HARDEN . Facility:[facility] Start: 06-23-2022 End: 06-23-2022 ambulatory CUT OFF SAW OPERATOR PIPE BLANKS-C Nataly E Spasic Work Phone: [facility] Work Phone: Start: 06-23-2022 End: 06-23-2022 Patient encounter procedure CUT OFF SAW OPERATOR PIPE BLANKS-C Nataly Spasic Work Phone: [facility] Work Phone: Start: 06-16-2022 End: 06-16-2022 Departed Referred CUT OFF SAW OPERATOR PIPE BLANKS-C Nataly Spasic Work Phone: [facility] Start: 06-04-2022 End: 06-04-2022 ambulatory CUT OFF SAW OPERATOR PIPE BLANKS-C Nataly E Spasic Work Phone: [facility] Work Phone: Start: 06-04-2022 End: 06-04-2022 Patient encounter procedure CUT OFF SAW OPERATOR PIPE BLANKS-C Nataly Spasic Work Phone: [facility] [place] Work Phone: Start: 06-03-2022 End: 06-03-[address] SHARMILA BAIG . Facility:[facility] Start: 05-28-2022 End: 05-28-2022 ambulatory CUT OFF SAW OPERATOR PIPE BLANKS-C Nataly Spasic Work Phone: [facility] Work Phone: Start: 05-28-2022 End: 05-28-2022 Departed Referred CUT OFF SAW OPERATOR PIPE BLANKS-C Nataly Spasic Work Phone: [facility] Start: 03-15-2022 End: 03-16-2022 ambulatory CORRINA DHALIWAL Facility:[facility] Start: 10-18-2021 End: 10-18-2021 Evaluation and management of inpatient DO Obdulia Oneil Work Phone: [facility] Start: 10-16-2021 End: 10-16-2021 Departed Referred DO Obdulia Oneil Work Phone: [facility] [place] Start: 08-31-2021 End: 08-31-[address] CAMACHO HERNANDEZ . Facility: Start: 08-08-2021 End: 08-08-2021 ambulatory CORRINA MADHURI Facility: Start: 07-21-2021 End: 07-21-2021 Patient encounter procedure DO Obdulia Oneil Work Phone: [facility] [place] Start: 08-03-2018 End: 08-04-2018 Patient encounter procedure SHARLA HICKS Facility:[facility] Procedures Date Procedure Procedure Detail Performing Clinician Start: 06-26-2024 TB UA (CLEAN/CATCH) RECORDING ENGINEER/MICRO IF IND. Camacho Hernandez DO Work Phone: Start: 06-15-2024 Urnls dip stick/tabl et rgnt non-auto w/o micrscp Riya Alexander CUT OFF SAW OPERATOR PIPE BLANKS Work Phone: Start: 06-01-2024 Urnls dip stick/tabl et rgnt non-auto w/o micrscp Camacho Hernandez DO Work Phone: Start: 05-29-2024 [facility] a amplified probe tq Gopal Ramiro Crouch DO Work Phone: Start: 05-25-2024 ALL CBC WITH AUTO DIFF Camacho Pintoo DO Work Phone: Start: 05-04-2024 Urnls dip stick/tabl et rgnt non-auto w/o micrscp Camacho Pintoo DO Work Phone: Start: 04-14-2024 TBH UA (CLEAN/CATCH) RECORDING ENGINEER/MICRO IF IND. Camacho Mary DO Work Phone: Start: 04-06-2024 RECURRENT VAGINITIS (HTRX) Kim Khoury PA Work Phone: Start: 04-06-2024 Urnls dip stick/tabl et rgnt non-auto w/o micrscp Kim QUICK Work Phone: Start: 04-06-2024 IGP,APTIMA HPV,AGE GDLN Kim QUICK Work Phone: Start: 03-14-2024 US OB CERVICAL LENGTH C oremike Pintoo DO Work Phone: Start: 03-09-2024 Urnls dip stick/tabl et rgnt non-auto w/o micrscp Camacho Mary DO Work Phone: Start: 02-25-2024 BOX TEST Camacho Fazi o DO Work Phone: Start: 02-25-2024 FREE CELL DNA (NON-[place]) Not In System Ref Prov Start: 02-03-2024 End: 02-03-2024 Urnls dip stick/tablet rgnt non-auto w/o micrscp Camacho Mary DO Work Phone: Start: 10-07-2023 Diagnostic radiograp hy of abdomen CUT OFF SAW OPERATOR PIPE BLANKS-C Nataly Spasic Work Phone: Start: 10-07-2023 Ultrasonography of liver CUT OFF SAW OPERATOR PIPE BLANKS-C Nataly Spasic Work Phone: Start: 10-07-2023 US scan of thyroid CUT OFF SAW OPERATOR PIPE BLANKS-C Nataly Spasic Work Phone: Start: 09-26-2023 CT of lumbar spine w ithout contrast CUT OFF SAW OPERATOR PIPE BLANKS-C Nataly Spasic Work Phone: Start: 09-26-2023 Urine culture CUT OFF SAW OPERATOR PIPE BLANKS-C Andrez a Spasic Work Phone: Start: 02-13-2023 Urine culture PHYSICIAN NO FAMILY Start: 02-01-2023 Urine culture CUT OFF SAW OPERATOR PIPE BLANKS-C Andrez a Spasic Work Phone: Start: 01-05-2023 Streptococcus agalac tiae culture CUT OFF SAW OPERATOR [employer]KS-C Nataly Spasic Work Phone: Start: 12-01-2022 Plain chest X-ray CUT OFF SAW OPERATOR [employer]-C Nataly Spasic Work Phone: Start: 12-01-2022 Respiratory Panel (PCR) CUT OFF SAW OPERATOR [employer]-C Nataly Tejal Work Phone: Start: 11-20-2022 Ultrasound scan - obstetric CUT OFF SAW OPERATOR [employer]-C Nataly Tejal Work Phone: Start: 06-04-2022 US scan of gallbladder CUT OFF SAW OPERATOR [employer]KS-C Nataly Tejal Work Phone: Start: 08-03-2018 Anes integ extremiti es ant trunk & perineum nos AREN Romaine PITT Start: 08-03-2018 Repair nail bed SHARLA Brian CLARK SARS Antigen (LFIA) DO Luis Enrique Oneil Work Phone: Streptococcus agalac tiae culture DO Obdulia Oneil Work Phone: Plan of Treatment Date Care Activity Detail Author Start: 04-13-2025 Adult [facility]ening [facility] Start: 04-13-2025 Tobacco [facility]ening [facility] Start: 04-13-2025 End: 04-13-2025 US MFM with or without consult US MFM with or without consult Imaging Routine History of delivery, currently Expected: 04/13/2025 (Approximate), Expires: 04/13/2025 [employer] Work Phone: Comment on above: Expected: 04/13/2025 (Approximate), Expires: 04/13/2025 Start: 10-16-2024 Influenza vaccination Influenz a Vaccine (Season Ended) [facility] Start: 07-06-2024 End: 07-06-2024 Patient encounter procedure 07/06/2024 11:50 AM EDT Routine [facility] [address] [place] [address] Camacho Hernandez, DO [address] [place] [address] [facility] Start: 06-29-2024 End: 06-29-2024 Professional / ancillary services management 06/29/2024 9:00 AM EDT Ancillary Procedure [facility] [address] [place] [id number] [facility] Start: 06-15-2024 End: 06-15-2025 Measurement of glucose 3 hours after glucose challenge for glucose tolerance test Glucose tolerance, 3 hours Lab Routine Elevated glucose tolerance test Expected: 06/15/2024 (Approximate), Expires: 06/15/2025 [facility] Work Phone: Comment on above: Expected: 06/15/2024 (Approximate), Expires: 06/15/2025 Start: 06-15-2024 End: 09-15-2024 US Pelvis transvaginal US OB transvaginal Imaging Routine Elevated glucose tolerance test Expected: 06/15/2024, Expires: 09/15/2024 [facility] Comment on above: Expected: 06/15/2024 , Expires: 09/15/2024 Start: 06-15-2024 End: 06-15-2024 Patient encounter procedure [facility] Comment on above: Arrived Start: 06-08-2024 End: 06-08-2024 Professional / ancillary services management 06/08/2024 8:00 AM EDT Ancillary Procedure [facility] [address] [place] [phone] [facility] Start: 06-01-2024 End: 10-01-2024 US for US OB follow up transabdominal approach Imaging Routine Third trimester Chronic cluster headache, not intractable Diet controlled gestational diabetes mellitus (GDM) in third trimester Polyhydramnios affecting in third trimester Expected: 06/01/2024, Expires: 10/01/2024 [facility] Work Phone: Comment on above: Expected: 06/01/2024 , Expires: 10/01/2024 Start: 06-01-2024 End: 06-01-2024 Patient encounter procedure 06/01/2024 9:50 AM EDT Routine [facility] [address] [place] [phone] Camacho Hernandez, [address] [place] [address] [facility] Start: 06-01-2024 End: 06-01-2024 Professional / ancillary services management 06/01/2024 9:00 AM EDT Ancillary Procedure [facility] [address] [place] [address] [facility] Start: 05-09-2024 End: 05-09-2024 Patient encounter procedure 05/09/2024 11:15 AM EDT Appointment [facility] - Ultrasound [address] [facility] [id number] [facility] - Ultrasound Start: 05-04-2024 End: 05-04-2025 CBC panel - Blood by Automated count CBC Lab Routine Diabetes mellitus screening Expected: 05/04/2024 (Approximate), Expires: 05/04/2025 [facility] Work Phone: Comment on above: Expected: 05/04/2024 (Approximate), Expires: 05/04/2025 Start: 05-04-2024 End: 05-04-2025 Measurement of glucose 1 hour after glucose challenge for glucose tolerance test Glucose tolerance, 1 hour Lab Routine Diabetes mellitus screening Expected: 05/04/2024 (Approximate), Expires: 05/04/2025 [facility] Comment on above: Expected: 05/04/2024 (Approximate), Expires: 05/04/2025 Start: 05-04-2024 End: 05-04-2025 US Pelvis transvaginal US OB transvaginal Imaging Routine Short cervix, antepartum Expected: 05/04/2024, Expires: 05/04/2025 [facility] Work Phone: Comment on above: Expected: 05/04/2024 , Expires: 05/04/2025 Start: 05-04-2024 End: 05-04-2024 Patient encounter procedure 05/04/2024 11:10 AM EDT Office Visit [facility] [address] [place] [phone] Camacho Hernandez, DO [address] [place] [address] [facility] Start: 05-02-2024 End: 05-02-2024 Patient encounter procedure 05/02/2024 9:15 AM EDT Appointment [facility] - Ultrasound [address] [place] [address] [facility] - Ultrasound Start: 04-13-2024 End: 04-13-2024 Patient encounter procedure [facility] - [facility] US Imaging Start: 04-06-2024 End: 04-06-2025 US Pelvis transvaginal US OB transvaginal Imaging Routine History of delivery, currently Expected: 04/06/2024, Expires: 04/06/2025 [facility] Comment on above: Expected: 04/06/2024 , Expires: 04/06/2025 Start: 04-06-2024 End: 04-06-2024 Patient encounter procedure [facility] Comment on above: Arrived Start: 03-09-2024 End: 05-07-2024 Alpha fetoprotein, maternal Alpha fetoprotein, maternal Lab Routine Second trimester 16 weeks gestation of Expected: 03/09/2024 (Approximate), Expires: 05/07/2024 [facility] Work Phone: Comment on above: Expected: 03/09/2024 (Approximate), Expires: 05/07/2024 Start: 03-09-2024 End: 03-09-2025 Measurement of glucose 1 hour after glucose challenge for glucose tolerance test Glucose tolerance, 1 hour Lab Routine History of delivery, currently History of gestational diabetes Expected: 03/09/2024 (Approximate), Expires: 03/09/2025 [facility] Comment on above: Expected: 03/09/2024 (Approximate), Expires: 03/09/2025 Start: 03-09-2024 End: 03-09-2025 US Pelvis transvaginal US OB transvaginal Imaging Routine History of delivery, currently Expected: 03/09/2024, Expires: 03/09/2025 [facility] Comment on above: Expected: 03/09/2024 , Expires: 03/09/2025 Start: 03-09-2024 End: 03-09-2024 Patient encounter procedure [facility] Comment on above: Arrived Start: 02-03-2024 End: 02-02-2025 ABO/Rh ABO/Rh Lab Routine Missed menses , unspecified gestational age Expected: 02/03/2024 (Approximate), Expires: 02/02/2025 [facility] Comment on above: Expected: 02/03/2024 (Approximate), Expires: 02/02/2025 Start: 02-03-2024 End: 02-02-2025 Blood type and Indirect antibody screen panel - Blood Type and screen Lab Routine Missed menses , unspecified gestational age Expected: 02/03/2024 (Approximate), Expires: 02/02/2025 [facility] Work Phone: Comment on above: Expected: 02/03/2024 (Approximate), Expires: 02/02/2025 Start: 02-03-2024 End: 02-02-2025 Drugs of abuse panel - Urine by Screen method Rapid drug screen, urine Lab Routine , unspecified gestational age Encounter for supervision of normal first in first trimester Expected: 02/03/2024 (Approximate), Expires: 02/02/2025 [facility] Comment on above: Expected: 02/03/2024 (Approximate), Expires: 02/02/2025 Start: 02-03-2024 End: 02-02-2025 US Pelvis transvaginal US OB transvaginal Imaging Routine Missed menses Expected: 02/03/2024 (Approximate), Expires: 02/02/2025 [facility] Comment on above: Expected: 02/03/2024 (Approximate), Expires: 02/02/2025 Start: 10-17-2023 Influenza vaccination [facility] Start: 09-26-2023 CT Lumbar spine WO contrast [facility] Start: 09-26-2023 CT of lumbar spine w ithout contrast CT lumbar spine wo con [facility] Start: 09-26-2023 Bacteria identified in Urine by Culture [facility] Start: 08-20-2023 [facility] Start: 02-14-2023 [facility] Start: 02-13-2023 End: 02-13-2023 [facility] Start: 02-13-2023 Bacteria identified in Urine by Culture [facility] Start: 02-13-2023 Delivery of Products of Conception, External Approach Delivery of Products of Conception, External Approach [facility] Start: 02-13-2023 Drainage of Amniotic Fluid, Therapeutic from Products of Conception, Via Natural or Artificial Opening Drainage of Amniotic Fluid, Therapeutic from Products of Conception, Via Natural or Artificial Opening [facility] Start: 02-13-2023 Hospital admission [facility] Start: 02-13-2023 Hospital admission [facility] Start: 02-13-2023 End: 02-13-2023 [facility] Start: 02-01-2023 [facility] Start: 02-01-2023 Hospital admission [facility] Start: 02-01-2023 Bacteria identified in Urine by Culture [facility] Start: 01-31-2023 [facility] Start: 01-30-2023 Hospital admission [facility] Start: 01-22-2023 [facility] Start: 01-21-2023 [facility] Start: 01-05-2023 Group B Streptococcu s Culture Group B Streptococcus Culture [facility] Start: 12-01-2022 Respiratory Panel (PCR) Respiratory Panel (PCR) [facility] Start: 11-21-2022 [facility] Start: 11-20-2022 [facility] Start: 11-20-2022 Hospital admission [facility] Start: 11-19-2022 [facility] Start: 11-19-2022 Hospital admission [facility] Start: 11-19-2022 [facility] Start: 10-18-2021 End: 10-18-2021 [facility] Work Phone: Start: 10-18-2021 Hospital admission [facility] Work Phone: Start: 2020 Screening for malign ant neoplasm of cervix Pap Smear [employer] Start: 02-16-2020 DTaP,Tdap and Td Vac cines (2 - Td or Tdap) DTaP,Tdap and Td Vaccines (2 - Td or Tdap) [facility] Start: 2017 Adult BMI Follow Up Plan Adult BMI Follow Up Plan [facility] Start: 2017 Adult BMI Screening Adult BMI Screen ing [facility] Start: 2011 Depression Screening Depression Scre ening [facility] Start: 2011 Tobacco Screening Tobacco Screening [facility] Bacteria identified in Urine by Culture [facility] Bacteria identified in Urine by Culture Urine culture Microbiology Routine Missed menses Ordered: 02/03/2024 [facility] Comment on above: Ordered: 02/03/2024 CBC W Auto Different ial panel - Blood CBC and differential Lab Routine Missed menses , unspecified gestational age Ordered: 02/03/2024 [facility] Comment on above: Ordered: 02/03/2024 CHLAMYDIA TRACHOMATI S (GENITO/STI) CHLAMYDIA TRACHOMATIS (GENITO/STI) Lab Routine STD exposure Vaginal discharge Ordered: 04/06/2024 [facility] Comment on above: Ordered: 04/06/2024 Cytology Cervical or vaginal smear or scraping study Pap Smear Pathology and Cytology Routine Well woman exam with routine gynecological exam Ordered: 04/06/2024 [facility] Comment on above: Ordered: 04/06/2024 Glucose measurement estimated from glycated hemoglobin [facility] Hemoglobin A1c/Hemoglobin.total in Blood [facility] Hemoglobin A1c/Hemoglobin.total in Blood Hemoglobin A1c Lab Routine Missed menses , unspecified gestational age Ordered: 02/03/2024 [facility] Comment on above: Ordered: 02/03/2024 Hepatitis B virus almeida rface Ag [Presence] in Serum or Plasma by Immunoassay Hepatitis B surface antigen Lab Routine Missed menses , unspecified gestational age Ordered: 02/03/2024 [facility] Comment on above: Ordered: 02/03/2024 Hepatitis C virus Ab [Presence] in Serum or Plasma by Immunoassay Hepatitis C antibody Lab Routine Missed menses , unspecified gestational age Ordered: 02/03/2024 [facility] Comment on above: Ordered: 02/03/2024 HIV-1/HIV-2 antigen/antibody combination immunoassay HIV-1 and HIV-2 antibodies Lab Routine Missed menses , unspecified gestational age Ordered: 02/03/2024 [facility] Comment on above: Ordered: 02/03/2024 Insulin [Units/volum e] in Serum or Plasma [facility] Insulin [Units/volum e] in Serum or Plasma [facility] Insulin [Units/volum e] in Serum or Plasma [facility] Neisseria gonorrhoea e DNA [Presence] in Unspecified specimen by SVETLANA with probe detection Neisseria gonorrhea DNA probe, direct Lab Routine STD exposure Vaginal discharge Ordered: 04/06/2024 [facility] Comment on above: Ordered: 04/06/2024 Patient Education [facility] Work Phone: Patient referral [facility] Work Phone: Reagin Ab [Presence] in Serum by RPR [facility] Work Phone: Reagin Ab [Presence] in Serum by RPR [facility] Reagin Ab [Presence] in Serum by RPR RPR Lab Routine Missed menses , unspecified gestational age Ordered: 02/03/2024 [facility] Comment on above: Ordered: 02/03/2024 Respiratory pathogen s DNA and RNA panel - Nasopharynx by SVETLANA with non-probe detection [facility] Rubella antibody, IgG Rubella an tibody, IgG Lab Routine Missed menses , unspecified gestational age Ordered: 02/03/2024 [facility] Comment on above: Ordered: 02/03/2024 Streptococcus agalac tiae [Presence] in Unspecified specimen by Organism specific culture [facility] Streptococcus pyogen es DNA [Identifier] in Unspecified specimen by SVETLANA with probe detection STREP DNA PROBE Point of Care Testing Routine Pharyngitis, unspecified etiology 05/29/2024 12:[address] [facility] [employer] Work Phone: SURESWAB(R) ADVANCED VAGINITIS PLUS, TMA SURESWAB(R) ADVANCED VAGINITIS PLUS, TMA Pathology and Cytology Routine STD exposure Vaginal discharge Ordered: 04/06/2024 [facility] Work Phone: Comment on above: Ordered: 04/06/2024 Thyroperoxidase Ab [Units/volume] in Serum or Plasma [facility] Thyrotropin [Units/v olume] in Serum or Plasma [facility] Thyrotropin [Units/v olume] in Serum or Plasma TSH Lab Routine , unspecified gestational age Encounter for supervision of normal first in first trimester Ordered: 02/03/2024 [facility] Comment on above: Ordered: 02/03/2024 Thyroxine (T4) free index in Serum or Plasma by calculation [facility] Thyroxine measurement [facility] Triiodothyronine (T3 ) [Mass/volume] in Serum or Plasma [facility] Triiodothyronine res in uptake (T3RU) in Serum or Plasma [facility] Immunizations Immunization Date Immunization Notes Care Provider Arcadio galicia 04-09-2023 influenza virus vaccine, unspecified formulation [facility] Nurse [facility] 02-13-2023 tetanus toxoid, reduced diphtheria toxoid, and acellular pertussis vaccine, adsorbed RONDA Toure Work Phone: [facility] 01-10-2021 influenza, injectable, quadrivalent, preservative free DO Obdulia Oneil Work Phone: [facility] 02-15-2010 tetanus toxoid, reduced diphtheria toxoid, and acellular pertussis vaccine, adsorbed [facility] Nurse [facility] Work Phone: 12-13-2008 novel [id number], preservative-free, injectable [facility] Nurse [facility] 12-13-2008 influenza virus vaccine, unspecified formulation Ni Carroll MD Work Phone: [facility] 07-21-2000 hepatitis B vaccine, pediatric or pediatric/adolescent dosage [facility] 07-21-2000 measles, mumps and rubella virus vaccine [facility] 1999 poliovirus vaccine, inactivated [facility] Nurse [facility] NEGATED: Highlighted row has not occurred!01-10-2021 tetanus toxoid, reduced diphtheria toxoid, and acellular pertussis vaccine, adsorbed DO Obdulia Oneil Work Phone: [facility] Payers Date Payer Category Payer Self-pay [id number] 2021 Medicaid (Managed Care) [employer] [id number] 1999 Unknown [id number] 2.16.840.1.241348.3.579.2. 647 1999 Unknown [id number] 2.16.840.1.371361.3.579.2. 593 1999 Unknown [id number] 2.16.840.1.978349.3.579.2. 593 1999 Unknown [id number] 2.16.840.1.333358.3.579.2. 593 1999 Unknown [id number] 2.16.840.1.614851.3.579.2. 593 1999 Unknown [id number] 2.16.840.1.644147.3.579.2. 593 1999 Unknown [id number] 2.16.840.1.000535.3.579.2. 1286 1999 Unknown [id number] 2.16.840.1.393790.3.579.2. 1286 1999 Unknown [id number] 2.16.840.1.953901.3.579.2. 1286 1999 Unknown [id number] 2.16.840.1.956168.3.579.2. 1259 1999 Unknown [id number] 2.16.840.1.614735.3.579.2. 1259 1999 Unknown [id number] 2.16.840.1.772263.3.579.2. 1259 1999 Unknown [id number] 2.16.840.1.084403.3.579.2. 9 1999 Unknown [id number] 2.16.840.1.399469.3.579.2. 1259 1999 Unknown [id number] 2.16.840.1.083596.3.579.2. 9 1999 Unknown [id number] 2.16.840.1.324072.3.579.2. 9 1999 Unknown [id number] 2.16.840.1.639691.3.579.2. 1258 1999 Unknown [id number] 2.16.840.1.544202.3.579.2. 9 1994 Medicaid HMO [id number]. [id number] 1959 Private Health Insurance [id number] 1959 Unknown [id number] Unknown [place] [id number]/ [id number] Unknown [id number] 2.840.1.052436.3.579.2. 531 Unknown [id number] 2.16840.1.823466.3.579.2. 531 Unknown [id number] 2.16840.1.886091.3.579.2. 531 Unknown [id number] 2.16.840.1.515132.3.579.2. 531 Unknown [id number] 2.16.840.1.147520.3.579.2. 531 Unknown [id number] 2.16840.1.500630.3.579.2. 531 Unknown [id number] 2.16840.1.631004.3.579.2. 531 Unknown [id number] 2.16840.1.873249.3.579.2. 531 Unknown [id number] 2.16.840.1.581015.3.579.2. 531 Unknown [id number] 2.16.840.1.359202.3.579.2. 531 Unknown [id number] 2.16.840.1.721330.3.579.2. 531 Unknown [id number] 2.16.840.1.340725.3.579.2. 531 Unknown [id number] 2.16.840.1.779222.3.579.2. 531 Unknown [id number] 2.16.840.1.554772.3.579.2. 531 Unknown [id number] 2.16.840.1.513872.3.579.2. 531 Unknown [id number] 2.16.840.1.929445.3.579.2. 531 Unknown [id number] 2.16840.1.262924.3.579.2. 531 Social History Date Type Detail Facility Start: 10-18-2021 End: 07-28-2022 Tobacco smoking status NHIS Never smoked tobacco (finding) [facility] Start: 2000 Sex Assigned At Female [facility] Start: 07-28-2022 End: 03-17-2024 Tobacco use and exposure Smokeless tobacco non-user [facility] Start: 02-03-2024 End: 06-15-2024 Alcoholic beverage intake Ex-drinker (finding) [facility] Start: 02-12-2023 End: 02-03-2024 History of Social function [facility] Start: 02-12-2023 End: 02-03-2024 Tobacco use panel [facility] Start: 08-24-2022 Education 16 [facility] Start: 08-24-2022 Alcohol Comment none with preg sascha, Caffeine intake: none [facility] Start: 12-01-2023 [facility] Start: 1999 Sex assigned at Not on file [facility] Start: 04-29-2022 Gender identity Identifies as female gender (finding) [facility] Childcare Unknown [facility] Start: 09-20-2014 Sex Female (finding) [facility] NEGATED: Highlighted row [facility] Medical Equipment Procedure Code Equipment Code Equipment Origin al Text Equipment Identifier Dates 1 strip by In Vi tro route Daily Use in the morning prior to breakfast, 1 hour after each meal for a total of 4times daily. [id number] Start: 05-29-2024 End: 06-28-2024 1 each by In Vit ro route Daily Use to check FSBS four times daily [id number] Start: 05-29-2024 End: 06-28-2024 Goals Date Patient Goal Desired Activity /State Personal health goal Functional Status Date Assessment Result Facility 02-13-2023 Functional status Patient Not at [facility] Work Phone: Mental Status Date Assessment Result Facility 02-13-2023 Cognitive function Cognitive Sta tus Patient Not at [facility] Work Phone: Clinical Notes 10-18-2021 to 06-15-2024 Riya Alexander NP - 06/15/2024 1:50 PM Eric Curry LPN - 06/01/2024 9:50 AM Wilbert Cool NP - 05/29/2024 12:30 PM Mack Alexander NP - 05/04/2024 11:10 AM EDT [...] 6 hours PRN Blood Glucose Monitoring Suppl ([employer] Glucometer) w/Device kit 1 kit, Does not [...] nursing note reviewed. Exam conducted with a nuclear instructor present. Vitals: Estimated body mass index is 42.3 kg/m as calculated from the following: Height as of 23: 5' 3 . Weight as of this [...] Riya Alexander NP documented in this encounter [facility] 06-01-2024 History of Present illness Narrative Reason for Appointment: Patient ID: Rosette Alba is a 24 y.o. female who presents for Routine Visit Patient presents today for Return OB appointment. MEDICATIONS Current Outpatient Medications Medication Instructions amoxicillin (AMOXIL) 875 mg, Oral, 2 times daily, Pt to inform OB of starting medication. Blood Glucose Monitoring Suppl ([employer] Glucometer) w/Device kit 1 kit, Does not [...] nursing note reviewed. Exam conducted with a nuclear instructor present. Vitals: Estimated body mass index is [...] of Delivery: 08/23/24. Patient is setup with [facility] for Diabetic Education. Patient complaints of URI [...] Camacho Hernandez DO documented in this encounter [facility] 05-29-2024 History of Present illness Narrative Images from the original note were not included. [address] , [address] [facility], [address] P: [phone] F: [phone] [facility] Historian of HPI: patient Rosette Alba is [...] of See 1 documented in this encounter [facility] 05-04-2024 History of Present illness Narrative Reason [...] nursing note reviewed. Exam conducted with a nuclear instructor present. Vitals: Estimated body mass index is [...] Camacho Hernandez DO documented in this encounter [facility] 04-13-2024 History of Present illness Narrative Headache/epigastric [...] Yes Have you been seen here at [facility] in a previous ? No Recent ER visits or hospitalizations? No Bring blood sugar log or meter with you today? (Please bring them with you for every visit at [facility]) N/A Flu vaccine (Dec-April)? Yes Any concerns that you would like me to mention to the provider today? No REASON FOR CONSULTATION: Previa ruled out. HISTORY OF PRESENT ILLNESS: Rosette Alba is a pleasant 24 y.o. G [id number]. at 20w4d due on Estimated Date of [...] and the other consultants, we search on [place] [facility] and all the available care everywhere [facility] I did review all the imaging studies of the patient available on EMR, ordered by the primary care physician and the other [employer] product consultant HABITS: Patient activity no restrictions, diet [...] 22 weeks and 23 weeks gestation at [facility] office. 2. InCase of short cervical length less than 25 mm patient will be a candidate for cerclage which will be performed through the [facility] office. 3. Placenta previa has resolved. 4. Routine care OB provider. 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 Patient does have ultrasound scheduled with us Thank you for allowing me to participate in Rosette Alba . If there any questions please do not hesitate to contact us. Sincerely, NI CARROLL MD documented in this encounter [facility] 04-06-2024 History of Present illness Narrative Reason [...] nursing note reviewed. Exam conducted with a nuclear instructor present. Vitals: Estimated body mass index is [...] obtained without difficulty and patient was given [facility] order to have obtained. Patient has appointment with M next week to evaluate complete placenta previa Orders Placed This Encounter Procedures US OB transvaginal CHLAMYDIA TRACHOMATIS (GENITO/STI) Neisseria gonorrhea DNA probe, direct POCT urinalysis dipstick manually resulted Follow Up: Patient is to return to our office in 4 weeks for routine OB appointment Documented by Taylor Rebolledo LPN on behalf of: YNES Xiong documented in this encounter [facility] 03-09-2024 History of Present illness Narrative [...] nursing note reviewed. Exam conducted with a nuclear instructor present. Vitals: Estimated body mass index is [...] or undercooked meat, and stay away from [facility]. Patient has been consulted regarding any further do's and don'ts of . Patient voiced understanding and all questions and concerns were answered. Discussed vaginal progesterone with patient and that medication will be stopped at 36 weeks gestation, and Celestone will be given at 32 weeks. Patient given early 1 hour gtt and MSAFP. Vaginal suppositories sent to [facility] Orders Placed This Encounter Procedures US OB transvaginal Alpha fetoprotein, maternal Glucose tolerance, 1 hour POCT urinalysis dipstick manually resulted Follow Up: Patient is to return in 4 weeks for routine OB appointment. Documented by Ce Curry LPN on behalf of: Camacho Hernandez DO documented in this encounter [facility] 02-03-2024 History of Present illness Narrative [...] or undercooked meat, and stay away from [facility]. 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 Hx : 5 : 4 Livin EDC [...] % (Auto) 73.3, Lymph % (Auto) 17.0, [place] % (Auto) 8.1, Eos % (Auto) 1.3, Baso % (Auto) 0.3, Neut # (Auto) 7.4, Lymph # (Auto) 1.7, [place] # (Auto) 0.8, Eos # (Auto) 0.1, Baso # (Auto) 0.0, Nucleated RBC % (auto) 0.1 10/18/21 00:27: Urine Color Yellow, Urine Appearance Cloudy A, Urine pH 6.5, Ur Specific [place] 1.020, Urine Protein Trace H, Urine Glucose [...] <Electronically signed by TELMA Smith> 10/18/21 0141 [facility] Work Phone: [phone] 484-281809-03-2022 [facility]* Diagnosis Onset Date Resolution Status 33 weeks gestation of acute [facility] Work Phone: evaluation noteNo assessment information available [facility] Work Phone: evaluation note* Diagnosis Onset Date Resolution Status 35 weeks gestation of acute [facility] Work Phone: evaluation note* Diagnosis Onset Date Resolution Status Iron deficiency anemia [facility] Work Phone: evaluation note* Diagnosis [...] of pre-term labor documented [facility] Diagnosis delivery after section- Primary [facility] Diagnosis Short cervix, antepartum- Primary 24 weeks gestation of Second trimester state, incidental Diabetes mellitus screening Screening for diabetes mellitus Nonintractable headache, unspecified chronicity pattern, unspecified headache type [facility] Diagnosis Strep throat- Primary Streptococcal sore throat Pharyngitis, unspecified etiology 27 weeks gestation of [facility]* Diagnosis Third trimester state, incidental 28 weeks gestation of Upper respiratory tract infection, unspecified type Chronic cluster headache, not intractable History of delivery, currently with history of pre-term labor Diet controlled gestational diabetes mellitus (GDM) in third trimester Polyhydramnios affecting in third trimester [facility] Diagnosis Elevated glucose tolerance test- Primary Impaired glucose tolerance test 30 weeks gestation of Third trimester state, incidental [facility] instructions Additional Instructions You have a respiratory panel is pending you will be called with any positive results Push fluids Humidifier may be beneficial Tylenol only for your discomfort Follow-up with your PCP and 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 call tomorrow for appointment Salt water gargles to soothe your throat Handwashing Rest Return here if any problems persist or worsen including abdominal pain, vaginal bleeding, increased pain, dyspnea or any other [facility] Work Phone: InstructionsNot on filedocumented in this encounter [facility] SystemInstructionsNot on filedocumented in this encounter [facility] SystemInstructionsNot on filedocumented in this encounter [facility] [employer] [facility] Summary Purpose Family History Relationship Condition [...] and content) DATE CREATED AUTHOR 10/16/2018 [facility] DATE CREATED AUTHOR AUTHOR'S ORGANIZ ATION 07/24/2022 [facility] DATE CREATED AUTHOR AUTHOR'S ORGANIZ ATION 12/17/2023 [facility] DATE CREATED AUTHOR AUTHOR'S ORGANIZ ATION 05/03/2024 [facility] DATE CREATED AUTHOR AUTHOR'S ORGANIZ ATION 05/05/2024 [facility] DATE CREATED AUTHOR AUTHOR'S ORGANIZ ATION 06/20/2024 [facility] Care Teams (unrecognized sec tion and content) Team Status: Inactive Member Role Status Dates Obdulia Oneil DO Primary Care Provider Active Jennie Smith MD Admit Provider, Attending Provider Active Team Status: Inactive Member Role Status Allison Oneil DO Primary Care Provider Active Rdaha Molina DO Attending Provider Active Team Status: Active Member Role Status Allison Oneil DO Primary Care Provider Active Team Status: Inactive Member Role Status Dates Nataly Toure , CUT OFF SAW OPERATOR PIPE BLANKS-C Attending Provider Active Team Status: Active Member Role Status Dates Nataly E Shayleesic , CUT OFF SAW OPERATOR PIPE BLANKS-C Primary Care Provider Active Team Status: Inactive Member Role Status Dates Nataly E Spasic , CUT OFF SAW OPERATOR PIPE BLANKS-C Primary Care Provider, Attending Provider Active Team Status: Inactive Member Role Status Dates Nataly E Spasic , CUT OFF SAW OPERATOR PIPE BLANKS-C Primary Care Provider Active Marcello Hudson DO Attending Provider Active Team Status: Inactive Member Role Status Dates Nataly E Spasic , CUT OFF SAW OPERATOR PIPE BLANKS-C Primary Care Provider Active Mary Kay Cantu DO Attending Provider Active Team Status: Inactive Member Role Status Dates Nataly E Shayleesic , CUT OFF SAW OPERATOR PIPE BLANKS-C Primary Care Provider Active Jennie Smith MD Attending Provider Active Team Status: Inactive Member Role Status Dates Nataly E Shayleesic , CUT OFF SAW OPERATOR PIPE BLANKS-C Primary Care Provider Active Staci Ortiz APRN Emergency Provider Active Team Status: Inactive Member Role Status Dates Nataly Brian Jerniganc , CUT OFF SAW OPERATOR PIPE BLANKS-C Attending Provider Active Services [facility] Primary Care Provider Ac tive Team Status: Inactive Member Role Status Allison Molina DO Attending Provider Active Team Status: Active Member Role Status Dates PHYSICIAN NO FAMILY Primary Care Provider Active Team Status: Inactive Member Role Status Dates Radha Molina DO Attending Provider Active PHYSICIAN NO FAMILY Primary Care Provider Active Team Status: Inactive Member Role Status Allison Maguirea Brian Jerniganc , CUT OFF SAW OPERATOR PIPE BLANKS-C Primary Care Provider Active Radha Molina DO Attending Provider Active Team Status: Inactive Member Role Status Dates Nataly E Shayleesic , CUT OFF SAW OPERATOR PIPE BLANKS-C Primary Care Provider Active Ede Way MD [...] Member Role Status Dates Nataly Toure , CUT OFF SAW OPERATOR PIPE BLANKS-C Primary Care Provider Active Start: January 21, 2023 End: January 21, 2023 Radha Molina DO Attending Provider Active S tart: January 21, 2023 End: January 21, 2023 Team Status: Inactive Member Role Status Dates Nataly Toure , CUT OFF SAW OPERATOR PIPE BLANKS-C Primary Care Provider Active Start: January 22, 2023 End: January 22, 2023 Radha Molina DO Attending Provider Active S tart: January 22, 2023 End: January 22, 2023 Team Status: Inactive Member Role Status Dates Nataly Toure , CUT OFF SAW OPERATOR PIPE BLANKS-C Primary Care Provider Active Start: January 30, 2023 End: January 31, 2023 Mary Kay Cnatu DO Attending Provider Active Start: January 30, 2023 End: January 31, 2023 Team Status: Inactive Member Role Status Dates Nataly Toure , CUT OFF SAW OPERATOR PIPE BLANKS-C Primary Care Provider Active Start: February 01, 2023 End: February 01, 2023 Radha Molina DO Attending Provider Active S tart: February 01, 2023 End: February 01, 2023 Team Status: Inactive Member Role Status Dates Nataly Toure , CUT OFF SAW OPERATOR PIPE BLANKS-C Primary Care Provider Active Start: February 13, 2023 End: February 13, [address] MD Admit Provider, Atte nding Provider Active Start: February 13, 2023 End: February 13, 2023 Team Status: Inactive Member Role Status Dates Nataly Toure , CUT OFF SAW OPERATOR PIPE BLANKS-C Attending Provider Active Start: March 04, 2023 End: March 04, 2023 Team Status: Active Member Role Status Dates Services [facility] Primary Care Provider Ac tive Team Status: Inactive Member Role Status Dates Nataly Toure , CUT OFF SAW OPERATOR PIPE BLANKS-C Attending Provider Active Start: March 17, 2023 End: March 17, 2023 Services [facility] Primary Care Provider Ac tive Start: March 17, 2023 End: March 17, 2023 Team Status: Inactive Member Role Status Dates Nataly Toure , CUT OFF SAW OPERATOR PIPE BLANKS-C Attending Provider Active Start: August 03, 2023 End: August 03, 2023 Team Status: Inactive Member Role Status Dates Nataly Toure , CUT OFF SAW OPERATOR PIPE BLANKS-C Primary Care Provider Active Start: August 20, 2023 End: August 21, 2023 Carmelo Vinson DO Emergency Provider Active St art: August 20, 2023 End: August 21, 2023 Team Status: Inactive Member Role Status Dates Nataly Toure , CUT OFF SAW OPERATOR PIPE BLANKS-C Primary Care Provider Active Start: September 26, 2023 End: September 27, 2023 JUAN MANUEL HensleyC Emergency Provider Active Start: September 26, 2023 End: September 27, 2023 Team Status: Inactive Member Role Status Dates Nataly Toure , CUT OFF SAW OPERATOR PIPE BLANKS-C Primary Care Provi emmanuel, Attending Provider Active Start: September 30, 2023 End: September 30, 2023 Team Status: Inactive Member Role Status Dates Nataly Toure , CUT OFF SAW OPERATOR PIPE BLANKS-C Primary Care Provider Active Start: October 04, 2023 End: October 05, 2023 Carmelo Vinson DO Emergency Provider Active St art: October 04, 2023 End: October 05, 2023 Team Status: Inactive Member Role Status Dates Nataly Toure , CUT OFF SAW OPERATOR PIPE BLANKS-C Primary Care Provi emmanuel, Attending Provider Active Start: October 07, 2023 End: October 07, 2023 Team Status: Inactive Member Role Status Dates Nataly Jerniganc , CUT OFF SAW OPERATOR PIPE BLANKS-C Primary Care Provi emmanuel, Referring Provider Active Start: October 20, 2023 End: October 20, 2023 Melania Arceo APRN Attending Provider Active Start: October End: October 20, 2023 Team Status: Active Member Role Status Dates Nataly Toure , CUT OFF SAW OPERATOR PIPE BLANKS-C Primary Care Provi emmanuel, Referring Provider Active Start: October 20, 2023 Melania Arceo APRN Attending Provider Active Start: October Licensed Practical Nurse Clinic Nurse Relationship Specialty Start Date End Date Unallocated, MD Jose Angel [facility] [place] [address] PCP - General 06/29/22 Licensed Practical Nurse Clinic Nurse Relationship Specialty Start Date End Date Unallocated, [place] [address] PCP - General 06/29/22 Licensed Practical Nurse Clinic Nurse Relationship Specialty Start Date End Date Unallocated, Jonny Chapa MD [address] [place] [id number] PCP - General 06/29/22 Licensed Practical Nurse Clinic Nurse Relationship Specialty Start Date End Date Unallocated, Jonny Chapa MD [facility] [place] [address] PCP - General 06/29/22 Licensed Practical Nurse Clinic Nurse Relationship Specialty Start Date End Date Tai Chapman MD [address] [place] [id number] PCP - General Family Medicine 02/24/18 Licensed Practical Nurse Clinic Nurse Relationship Specialty Start Date End Date Unallocated, Jonny Chapa MD [address] [place], [place] [address] [place] [address] PCP - General 06/29/22 Licensed Practical Nurse Clinic Nurse Relationship Specialty Start Date End Date Unallocated, Jonny Chapa MD [address] [place] [id number] PCP - General 06/29/22 Licensed Practical Nurse Clinic Nurse Relationship Specialty Start Date End Date Unallocated, Jonny Chapa MD [facility] [place] [address] PCP - General 06/29/22 Licensed Practical Nurse Clinic Nurse Relationship Specialty Start Date End Date Tai Chapman MD [address] [place] [id number] PCP - General Family Medicine 02/24/18 Licensed Practical Nurse Clinic Nurse Relationship Specialty Start Date End Date Tai Chapman MD [address] [place] [id number] PCP - General Family Medicine 02/24/18 Licensed Practical Nurse Clinic Nurse Relationship Specialty Start Date End Date Unallocated, Jonny Chapa MD [address] [facility] [place] [address] PCP - General 06/29/22 Licensed Practical Nurse Clinic Nurse Relationship Specialty Start Date End Date Unallocated, Jonny Chapa MD [address] [facility] [place] [address] PCP - General 06/29/22 Licensed Practical Nurse Clinic Nurse Relationship Specialty Start Date End Date Unallocated, Jonny Chapa MD [address] [facility] [place] [address] PCP - General 06/29/22 Licensed Practical Nurse Clinic Nurse Relationship Specialty Start Date End Date Unallocated, Jonny Chapa MD [address] [place] [address] PCP - General 06/29/22 Goals (unrecognized section [...] BE BASED ON THE PRIMARY CLINICAL RECORDS. [facility] [email or web address] [facility]. provides no warranty or guarantee of the accuracy or completeness of information in this document.
[2024-06-28 08:43] LABS: Basophils Percent Auto 0.1 % (0.2-2.0); Hematocrit 36.8 % (36.0-48.0); Hemoglobin 12.3 g/dL (12.0-16.0); Immature Granulocytes Abs Auto 0.09 10^3/uL (0.00-0.03); Immature Granulocytes Pct Auto 0.8 % (0.0-0.5); Lymphocytes Percent Auto 7.9 % (20.5-60.0); Mean Corpuscular HGB Conc 33.4 g/dL (29.9-35.2); Mean Corpuscular Hemoglobin 27.8 pg (26.7-34.0); Mean Corpuscular Volume 83.3 fL (81.0-99.0); Mean Platelet Volume 11.2 fL (9.5-13.5); Monocytes Absolute Auto 0.5 10^3/uL (0.3-0.8); Monocytes Percent Auto 3.8 % (1.7-12.0); Neutrophils Absolute Auto 10.5 10^3/uL (1.4-6.5); Neutrophils Percent Auto 87.4 % (43.0-75.0); Platelet Count 196 10^3/uL (150-450); Red Blood Count 4.42 10^6/uL (4.20-5.40); Red Cell Distribution Width 13.2 % (11.0-15.0)
--- NOTE | 2024-06-28 08:45 | PM.OBHP ---
OB - H&P: HPI History of Present Illness Chief complaint: BLEEDING : 7 Para: 6 Date of last menstrual period: 99 Gestational age based on last menstrual period: 32 wks Narrative: Patient is a 24 yr old female EDC-08/23/24, EGA-32wks. Pt presents with an ongoing hx over the past 3 days of initially vaginal spotting progressing to some blood clots this morning. She also complains of cramping 4-5 times an hour. History of Present Dating criteria: LMP confirmed by 1st trimester US care: good care Ultrasounds: normal 1st trimester US and normal mid trimester US complications: placenta previa, labor and gestational diabetes complications comment: placenta previa resolved Labs Blood type: A (+) positive Rubella: immune RPR/VDLR: nonreactive GBS status: unknown HBsAG: negative Review of Systems ROS Status of ROS: 10 or more systems reviewed and unremarkable except as noted in history and below PFS PFS Social History Little interest or pleasure in doing things: not at all Feeling down, depressed, or hopeless: not at all Meds Home Medications and Allergies Allergies Allergy/AdvReac Type Severity Reaction Status Date / Time No Known Drug Allergies Allergy Verified 03/20/24 10:26 Exam Narrative Exam Narrative: Alert and oriented without distress. Constitutional Vital Signs, click to edit/add: Last Vital Signs Pulse 133 H 06/28/24 06:32 BP 131/66 06/28/24 06:32 Common normals: no apparent distress General appearance: cooperative, comfortable, well kempt and well developed Nutritional appearance: overweight Orientation/consciousness: Yes awake, Yes oriented to person, Yes oriented to place and Yes oriented to time HENMT Common normals: normocephalic, head/scalp atraumatic and hearing grossly normal bilaterally Head and scalp: normal to inspection, normocephalic and atraumatic Face and sinus: normal facial exam Respiratory Common normals: normal respiratory effort Effort & inspection: able to speak in complete sentences and symmetric chest movement Cardio Common normals: regular rate, regular rhythm, S1 normal heart sound, S2 normal heart sound and no murmurs Back & Pelvis Common normals: no CVA tenderness Thoracic spine/upper back: normal to inspection Lumbar spine/lower back: normal to inspection Pelvis: other (Vaginal vault with dark blood coming from cervix. L/1 Vtx) Extremity Common normals: normal to inspection and no calf tenderness (+1 pedal edema) Neuro Common normals: oriented x3 and gait normal Sensorium/orientation: awake, alert, oriented to person, oriented to place and oriented to time Results Labs Labs: Short CBC 06/28/24 Range/Units 08:25 WBC 12.0 H (4.0-11.0) 10^3/uL Hgb 12.3 (12.0-16.0) g/dL Hct 36.8 (36.0-48.0) % Plt Count 196 (150-450) 10^3/uL OB - A/P Assessment and Plan (1) Vaginal bleeding during , antepartum: Plan IUP at 32wks with vaginal bleeding and early pre-term labor versus subtle placental abruption. Will transfer pt to tertiary care center ([facility] who have accepted the transfer. Additional Plan Induction method: none Plan: other (Transfer pt to [facility] for further management) Urinary Catheter Management Urinary Catheter Management Urethral: Cath placed during this visit: yes Urethral indwelling: Yes Reason for continuing: measure accurate output (Pt is on MgSo4) Insertion date: 06/28/24
[2024-06-28] MEDS: MAGNESIUM-BOLUS FROM THE BAG- 40 GM/1,000 ML IV.SOLN IV (09:00)
[2024-06-28] MEDS: 0.9 % SODIUM CHLORIDE 1,000 ML 75 ML IV (09:00)
--- NOTE | 2024-06-28 09:32 | PC.NURSE ---
0720: Report received from Darrell Muhammad RN. Patient resting in room with mother. Denies feeling regular contractions. No active bleeding noted at present. 0745: Dr Pascual present and at bedside. Speculum exam per physician. Digital exam per physician- 1cm and blood noted on exam glove. US at bedside for placenta US, BPP. 0820: Orders received from Dr Pascual. Patient informed regarding plan of care and transfer to [facility]. 0845: IV started and lab draw from that. 0850- Mag sulfate 4gm bolus started and verified with Srikanth Gomez RN. 0910: Mag sulfate at 2gms/hr per infusion pump. Patient denies needs. Dr Pascual attends. SCd's on.
[2024-06-28] MEDS: PENICILLIN G POTASSIUM 5,000,000 UNIT in 0.9 % SODIUM CHLORIDE 100 ML 200 UNIT IV (09:48)
[2024-06-28] MEDS: BETAMETHASONE ACE/BETAMETHASONE SOD PHOS 30 MG/5 ML 12 MG IM (09:49)
--- NOTE | 2024-06-28 10:03 | PC.NURSE ---
1003: patient denies feeling ctxs- having them every 4 minutes. I don't usually feel them until I'm 6 cm dilated. FHR 140's with moderate variability and accels. Old blood noted on labia with 16 fr. scruggs catheter placed without difficulty. Clear yellow urine noted. Betamethasone 12 mg Im given (dose #2). Pain reported 0. Rey Choe RN
--- NOTE | 2024-06-28 10:41 | PC.NURSE ---
1020: Transport arrives and report given. Patient becoming tearful with contraction. Sve 1cm long and posterior. Red blood noted on exam glove. Antibiotic infused and discontinued. 1035: Patient leaves unit via transport stretcher.
== END 2024-06-28 10:35 | disposition short-term general hospital (02) ==
PROVIDERS: Admitting Provider Family Medicine Addiction Medicine; Visit Provider Family Medicine Addiction Medicine
DX: O46.93 Antepartum hemorrhage, unspecified, third trimester (principal); Z3A.32 32 weeks gestation of pregnancy; O24.419 Gestational diabetes mellitus in pregnancy, unspecified control
CPT/HCPCS: 36415; 59025; 76815; 76818; 85025; 96372; 96374; 96375; G0378; G0379; J0702; J2540

== ENCOUNTER 2024-09-29 12:49 | Outpatient (OUT) | payer OTHER, SELFPAY ==
--- OUTSIDE RECORDS SUMMARY | 2024-09-29 13:01 | XMS_ITS | CCD ---
Author Organization [facility] Care Team Providers Care Central Supply Manager Name Role Phone EBWANDA, SHARLA Admitting Unavailable EBWANDA SHARLA Attending Unavailable OBDULIA ONEIL Referring Unavailable OBDULIA ONEIL Primary Care Unavailable [place] Procedure Practitioner Unavailab SHARLA Singh Surgeon Unavailable [place] Procedure Practitioner Unavailab AREN Ferguson Surgeon Unavailable DO Obdulia Oneil Primary Care Provider DO Radha Molina Attending Provider [phone] MD Jennie Smith Admit Provider MD Jennie Smith Attending Provider Spasic, BASKET PATCHER-C Nataly Torres Attending Provider Spasic, BASKET PATCHER-C Nataly Torres Primary Care Provider DO Marcello Hudson Attending Provider [phone] CORRINA DHALIWAL Attending Unavailable CORRINA DHALIWAL Consulting Unavailable REQUEST, NONE LISTED Primary Care Unavaila CORRINA Cuevas Admitting Unavailable FINA ., YNSE MENDENHALL Consulting Unavailjanie JOHNSON ., DR SIMENTAL [...] NONE LISTED Primary Care Unavaila ble Spasic, BASKET PATCHER-C Nataly E Primary Care Provider DO Mary Kay Cantu Attending Provider MD Jennie Smith Attending Provider CADE Ortiz Emergency Provider Spasic, BASKET PATCHER-C Nataly E Attending Provider [facility] Primary Care Prov ider DO Radha Molina Attending Provider [phone] Spasic, BASKET PATCHER-C Nataly E Primary Care Provider [phone] DO Mary Kay Cantu Attending Provider MD Jennie Smith Attending Provider CADE Ortiz Emergency Provider Spasic, BASKET PATCHER-C Nataly E Attending Provider [facility] Primary Care Prov ider DO Radha Molina Attending Provider NO FAMILY, PHYSICIAN Primary Care Provider Unava ilable MD Ede Way Admit Provider MD Ede Way Attending Provider [phone] Spasic, BASKET PATCHER-C Nataly E Primary Care Provider DO Mary Kay Cantu Attending Provider Spasic, BASKET PATCHER-C Nataly E Attending Provider DO Radha Molina Attending Provider [facility] Primary Care Prov ider Spasic, BASKET PATCHER-C Nataly E Attending Provider Spasic, BASKET PATCHER-C Nataly E Primary Care Provider DO Carmelo Vinson Emergency Provider RANDALL Leon Emergency Provider Spasic, BASKET PATCHER-C Nataly E Referring Provider CADE Arceo Attending Provider Unallocated , [place]oms Provider Primary Care Provi emmanuel Tai Chapman MD Primary Care Provider [phone] Tai Chapman MD Primary Care Provider [phone] NI CARROLL Attending Unavailable MARY, CAMACHO R Referring Unavailable CHAPMAN, TAI Sommer Primary Care Unavailable MARY, CAMACHO R Referring Unavailable CHAPMAN, TAI Sommer Primary Care Unavailable NI CARROLL Attending Unavailable MARY, CAMACHO R Referring Unavailable CHAPMAN, TAI Sommer Primary Care Unavailable SUMEET MOORE Admitting Unavailable SUMEET MOORE Attending Unavailable ERA HUNT Referring Unavailable CHAPMAN, TAI Sommer Primary Care Unavailable NI CARROLL Consulting Unavailable [facility] Consulti ng Unavailable CAHPMAN, TAI Sommer Primary Care Unavailable MARY, CAMACHO R Referring Unavailable CHAPMAN, TAI Sommer Referring Unavailable CHAPMAN, TAI Sommer Primary Care Unavailable MARY, CAMACHO Attending Unavailable KIM KHOURY Attending Unavailable MARY, CAMACHO Attending Unavailable TRUDY COOL Attending Unavailable RIYA ALEXANDER Referring Unavailable MARY, CAMACHO Attending Unavailable CATHERINERIYA YOUSSEF Attending Unavailable IRAIDA, KIM Attending Unavailable Spasic BASKET PATCHER-C, Nataly Torres Attending Provider Nataly Toure E Attending Unavailable Spasic, Nataly E Admitting Unavailable Spasic, Nataly E Primary Care Unavailable Spasic, Nataly E Attending Unavailable Spasic, Nataly E Admitting Unavailable Spasic, Nataly E Primary Care Unavailable Spasic, Nataly E Referring Unavailable Spasic, Nataly E Primary Care Unavailable Melania Arceo Admitting Unavail able Melania Arceo Attending Unavail able Carmelo Vinson Admitting Unavailable Carmelo Vinson Attending Unavailable Spasic, Nataly E Primary Care Unavailable Devon Leon Admitting Unavailable Devon Leon Attending Unavailable Spasic, Nataly E Primary Care Unavailable [facility] Primary Care Unavaila ble Spasic, Nataly E Admitting Unavailable Nataly Toure Attending Unavailable Allergies Allergy Classification Reported Allergen(s) Allergy Type Date of Onset Reaction(s) Facility (1 source) 00418,00 Drug allergy (disorder) 07-01-2012 [facility] Repository Medications Current Medications Medication Drug Class(es) Dates Sig (Normalized) Sig (Original) acetaminophen 500 mg oral tablet (4 sources) Start: 06-30-2024 take 2 tablets by mouth every eight hours as needed for pain acetaminophen (TYLENOL EXTRA STRENGTH) 500 mg tablet Take 2 tablets (1,000 mg total) by mouth every 8 (eight) hours as needed for pain. 30 tablet 06/30/2024 Active acetaminophen 300 mg / codeine phosphate 30 mg oral tablet (9 sources) Opioid Agonist Start: 06-01-2024 take 1 tablet by mouth every six hours for pain acetaminophen-codei ne (Tylenol w/ Codeine #3) 300-30 MG tablet Indications: Chronic cluster headache, not intractable Take 1 tablet by mouth every 6 (six) hours if needed for severe pain for up to 20 doses 20 tablet 06/01/2024 Active acetaminophen 325 mg / oxyCODONE hydrochloride 5 mg oral tablet (6 sources) Opioid Agonist Start: 09-26-2023 take 1 tablet by mouth every six hours as needed for pain ALPRAZolam 0.25 mg oral tablet (3 sources) Benzodiazepine Start: 10-21-2023 ALPRAZolam (Xanax) 0.25 MG tablet every 12 (twelve) hours 10/21/2023 Active Start: 10-20-2023 amoxicillin 875 mg oral tablet (4 sources) [...] Glucose Monitoring Suppl (D-Care Glucometer) w/Device kit (10 sources) Start: 05-29-2024 End: 08-09-2024 Blood Glucose Monitoring Suppl (D-Care Glucometer) w/Device kit Indications: Gestational diabetes mellitus (GDM), antepartum, gestational diabetes method of control unspecified ([facility]) , Elevated glucose tolerance test 1 kit Daily Use four times daily to check FSBS. In the morning prior to breakfast & 1 hour after each meal for a total of 4times daily. 1 kit 05/29/2024 08/09/2024 Discontinued (Other) Start: 05-29-2024 End: 05-29-[address] (D-Care Glucometer) w/Device kit Indications: Gestational diabetes mellitus (GDM), antepartum, gestational diabetes method of control unspecified , Elevated glucose tolerance test 1 kit Daily Use four times daily to check FSBS. In the morning prior to breakfast & 1 hour after each meal for a total of 4times daily. 1 kit 05/29/2024 05/29/2025 Active Desogestrel / Ethinyl Estradiol (1 source) Progestin, Estrogen Start: 10-21-2023 Kariva 0.15-0.02/0.01 MG (05/07) tablet 1 (one) time each day at the same time 10/21/2023 Active docusate sodium 100 mg oral capsule (20 sources) Start: 06-30-2024 take 1 capsule by mouth in the morning Docusate Sodium (DSS) 100 MG capsule Take 100 mg by mouth in the morning and 100 mg in the evening. 06/30/2024 Active Start: 01-09-2021 End: 06-23-2022 take 1 capsule by mouth once daily Docusate Sodium (Colace) 100 mg capsule Discontinued 100 MG PO Daily October 18, 2021 12:00am June 23, 2022 12:52pm 0.5 ml dulaglutide 1.5 mg/ml auto-injector (1 source) GLP-1 Receptor Agonist inject 0.5 mL by subcutaneous injection every week Trulicity 0.75 MG/0.5ML solution auto-injector INJECT 0.5ML (0.75MG) SUBCUTANEOUSLY ONCE A WEEK Active ferrous sulfate 325 mg delayed release oral tablet (20 sources) Start: 10-20-19 take 1 tablet by mouth once daily End: 06-01-2024 take 1 tablet by mouth once daily at breakfast ferrous sulfate 325 (65 FE) MG tablet Take 1 tablet (325 mg total) by mouth daily with breakfast. Active ibuprofen 800 mg oral tablet (20 sources) Nonsteroidal Anti-inflammatory Drug Start: 06-30-2024 take 1 tablet by mouth every eight hours as needed ibuprofen (MOTRIN) 800 mg tablet Take 1 tablet (800 mg total) by mouth every 8 (eight) hours as needed (cramping). 30 tablet 06/30/2024 Active Start: 10-18-2021 End: 06-23-2022 take 1 tablet by mouth four times daily as needed for pain Ibuprofen 800 mg tablet Discontinued 800 MG PO Four times daily as needed for pain October 18, 2021 12:00am June 23, 2022 12:52pm Start: 01-09-2021 End: 10-18-2021 take 1 tablet by mouth every six hours as needed for pain Ibuprofen 600 mg Tablet Discontinued 600 MG PO Q6H as needed for Pain January 09, 2021 1:00am October 18, 2021 5:02am Start: 01-03-2017 End: 03-20-2017 take 4 tablets by mouth every twenty-four hours for pain Ibuprofen 600 mg Tablet Discontinued 600 MG PO Every 6 hours as needed for Pain January 03, 2017 1:00am March 20, 2017 1:01pm do not exceed 4 doses in a 24 hour period 3 ml liraglutide 6 mg/ml pen injector (20 sources) GLP-1 Receptor Agonist Start: 10-20-2023 Start: 06-23-2022 End: 11-19-2022 Liraglutide (Victoza 2-Valencia) 0.6 mg/0.1 mL (18 mg/3 mL) pen injector Discontinued 0.6 MG SUBCUT Daily June 23, 2022 12:00am November 19, 2022 12:21pm lisdexamfetamine dimesylate 50 mg oral capsule (3 sources) Central Nervous System Stimulant Start: 10-21-2023 Vyvanse 50 MG capsule 1 (one) time each day at the same time 10/21/2023 Active Start: 10-20-2023 take 1 capsule by mouth once d aily methylPREDNISolone (20 sources) Corticosteroid Start: 04-06-2024 End: [...] per package directions 25/iron fum/folic/dha (-1 ORAL) (7 sources) 25/iron fum/folic/dha (-1 ORAL) Take by mouth. Active progesterone (FIRST-PROGESTERONE VGS) 200 mg suppository (6 sources) progesterone (FIRST-PROGESTERONE VGS) 200 mg suppository [...] Active promethazine hydrochloride 12.5 mg oral tablet (9 sources) Phenothiazine Start: 06-02-19 take 1 tablet [...] Serotonin and Norepinephrine Reuptake Inhibitor Start: 10-20-19 Start: 10-20-2023 take 50 mg by mouth twice kale y Venlafaxine Active 50 MG PO Twice daily October 20, 2023 12:00am Start: 03-18-2023 End: 05-04-2024 take 1 capsule by mouth once daily at mealtime venlafaxine XR (Effexor XR) 75 MG 24 hr capsule TAKE 1 CAPSULE BY MOUTH ONCE DAILY WITH FOOD 03/18/2023 05/04/2024 Discontinued Start: 06-23-2022 End: 11-19-2022 take 1 capsule by mouth once daily at bedtime Venlafaxine 37.5 mg capsule,extended release 24hr Discontinued 37.5 MG PO Daily at bedtime June 23, 2022 12:00am November 19, 2022 12:21pm take 1 capsule by mo [facility] every twenty-four hours in the morning [...] 2 tablets by mouth every four hours as needed for pain Hydrocodone-Acetam inophen ([place]) 5-325 mg tablet Discontinued 2 TAB PO Q4H as needed for pain June 01, 2017 October 23, 2017 2:43pm [...] daily 28 08November 15, 2017 12:00am November 21, 2017 12:00am November 22, 2017 12:01am azithromycin 250 mg oral tablet (18 sources) Macrolide Antimicrobial Start: 06-01-2024 End: 06-15-2024 [...] 1 capsule by mouth three times daily as needed for cough Benzonatate (Tessalon Perles) 100 mg capsule Discontinued 100 MG PO Three times daily as needed for cough February 27, 2019 1:00am May 10, 2020 7:38pm cephalexin 500 mg oral capsule (20 sources) Cephalosporin Antibacterial Start: 09-26-2023 End: 10-20-2023 take 1 capsule by mouth every eight hours Cephalexin 500 mg capsule Discontinued 500 MG PO Q8H 15 September 26, 2023 12:00am October 20, 2023 8:30am Start: 11-07-2017 End: 11-15-2017 take 2 capsules by mouth twice daily Cephalexin (Keflex) 500 mg capsule Discontinued 1000 MG PO Twice daily 40 November 07, 2017 12:00am November 16, 2017 12:00am November 15, 2017 4:03pm escitalopram 5 mg oral tablet (20 sources) Serotonin Reuptake Inhibitor Start: 01-03-2017 End: 03-20-2017 take 1 tablet by mouth once daily Escitalopram Oxalate 5 tablet Discontinued 5 MG PO Daily January 03, 2017 1:00am March 20, 2017 1:01pm 168 hr ethinyl estradiol 0.86532 mg/hr / norelgestromin 0.68933 mg/hr transdermal system (20 sources) Progestin, Estrogen Start: 06-23-2022 End: 11-19-2022 Norelgestromin-Ethin .Estradiol (Zafemy) 150-35 mcg/24 hr patch weekly Discontinued [...] Capsule Discontinued 25 MG PO As Directed as needed for Anxiety June 23, 2022 12:00am November 19, 2022 12:21pm 3 ml insulin isophane, human 100 unt/ml [...] sources) l-Thyroxine Start: 10-23-2017 End: 11-07-2017 take 1 tablet by mouth once daily Levothyroxine 25 mcg tablet Discontinued 25 MCG PO Daily October 23, 2017 12:00am November 07, 2017 8:54pm lidocaine 0.05 mg/mg medicated patch (20 sources) Antiarrhythmic, Amide Local Anesthetic Start: 09-26-2023 End: 10-20-2023 apply 1 dose topically every twenty-four hours Lidocaine 5 % adhesive patch,medicated Discontinued 1 PATCH TOPICAL Q24H September 26, 2023 12:00am October 20, 2023 8:31am leave on most painful area for up to 12 hrs Start: 05-10-2020 End: 01-08-2021 apply 1 dose topically every twenty-four hours Lidocaine 5 % adhesive patch,medicated Discontinued 1 PATCH TOPICAL Q24H May 10, 2020 12:00am January 08, 2021 10:30pm leave on most painful area for up to 12 hrs magnesium oxide 400 mg oral tablet (10 sources) Start: 05-04-2024 End: 09-01-2024 take 1 tablet by mouth once daily magnesium oxide (Mag-Ox) 400 MG tablet Indications: Nonintractable headache, unspecified chronicity pattern, unspecified headache type Take 1 tablet (400 mg) by mouth Daily 30 tablet 3 05/04/2024 06/01/2024 Discontinued methocarbamol 750 mg oral tablet (20 sources) Muscle Relaxant Start: 09-26-2023 End: 10-20-2023 take 1 tablet by mouth three times daily Methocarbamol 750 mg tablet Discontinued 750 MG PO [...] Channel Aruna Start: 11-20-2022 End: 02-13-2023 take 1 capsule by mouth four times daily Nifedipine 10 mg Capsule Discontinued 10 MG PO Four times daily November 20, 2022 12:00am February 13, 2023 7:43pm Lerona-3 Fatty Acids-Fish Oil (20 sources) Start: 06-23-2022 End: 11-19-2022 take 1 capsule by mouth once daily Lerona-3 Fatty Acids-Fish Oil Discontinued 1 CAP PO Daily June 22, 2022 11:00pm November 19, 2022 11:22am Start: 06-23-2022 End: 11-19-2022 take 1 capsule by mouth once daily Lerona-3 Fatty Acids-Fish Oil Discontinued 1 CAP PO Daily June 23, 2022 12:00am November 19, 2022 12:22pm Start: 06-23-2022 take 1 capsule by mo [facility] once daily Lerona-3 Fatty Acids-Fish Oil Active 1 CAP PO Daily June 23, 2022 12:00am Lerona-3 Fatty Acids-Fish Oil 300-1,000 mg capsule (1 source) Start: 06-23-2022 End: 11-19-2022 take 1 capsule by mouth once daily Lerona-3 Fatty Acids-Fish Oil 300-1,000 mg capsule Discontinued 1 CAP PO Daily June 23, 2022 12:00am November 19, 2022 12:22pm ondansetron 4 mg disintegrating oral tablet (20 sources) Serotonin-3 Receptor Antagonist Start: 02-27-2019 End: 05-10-2020 take 1 tablet by mouth every eight hours Ondansetron 4 mg tablet,disintegrat ing Discontinued 4 MG PO Q8H 9 February 27, 2019 1:00am May 10, 2020 7:38pm Start: 11-15-2017 End: 03-02-2018 take 1 tablet by mouth every six hours as needed for nausea and vomiting Ondansetron (Zofran Odt) 4 mg tablet,disintegrating Discontinued 4 MG PO Q6H as needed for nausea and vomiting November 15, 2017 12:00am March 03, 2018 12:40am Start: 06-06-2017 End: 06-09-2017 take 1 tablet by mouth three times daily as needed for nausea and vomiting Ondansetron (Zofran Odt) 4 mg tablet,disintegrating Discontinued 4 MG PO Three times daily as needed for nausea and vomiting 10 June 06, 2017 12:00am June 08, 2017 12:00am June 09, 2017 12:01am Start: [...] (20 sources) Start: 11-07-2017 End: 11-12-2017 take 2 tablets by mouth once daily Prednisone 20 mg tablet Discontinued 40 MG PO Daily 10 November 07, 2017 12:00am November 11, 2017 12:00am November 12, 2017 12:01am Start: 11-07-2017 End: 11-12-2017 take 40 mg by mouth once daily Prednisone Discontinued 40 MG PO Daily 10 November 07, 2017 12:00am November 12, 2017 12:01am Aiivgjsk-Wgx-Dg-Fa () 1 mg Tablet (20 sources) Start: 11-19-2022 End: 02-13-2023 take 1 tablet by mouth once daily Nmmjongk-Fze-Vh-Fa () 1 mg Tablet Discontinued 1 TAB PO Daily November 19, 2022 12:00am February 13, 2023 7:43pm Start: 11-19-2022 End: 02-13-2023 take 1 tablet by mouth once daily Lmyzihkw-Ieb-Ep-Fa () 1 mg Tablet Discontinued 1 TAB PO Daily November 18, 2022 11:00pm February 13, 2023 6:43pm Start: 11-19-2022 take 1 tablet by long th once daily Pxmimcnc-Bko-Be-Fa () 1 mg Tablet Active 1 TAB PO Daily November 18, 2022 11:00pm Start: 11-19-2022 take 1 tablet by long th once daily Mlhdvnkv-Koj-Nx-Fa () 1 mg Tablet Active 1 TAB PO Daily November 19, 2022 12:00am progesterone 200 mg oral capsule (20 sources) Progesterone Start: 11-19-2022 End: 02-13-2023 take 1 capsule by mouth once daily at bedtime Progesterone Micronized 200 mg Capsule Discontinued 200 MG PO Daily at bedtime November 19, 2022 12:00am February 13, 2023 7:43pm traMADol hydrochloride 50 mg oral tablet (20 sources) Opioid Agonist Start: 06-29-2022 End: 11-19-2022 take 1 tablet by mouth every six hours as needed for pain Tramadol 50 mg tablet Discontinued 50 MG PO Q6H as needed for pain 30 June 29, 2022 12:00am November 19, 2022 12:21pm traZODone hydrochloride 50 mg oral tablet (20 sources) Serotonin Reuptake Inhibitor Start: 06-23-2022 End: 11-19-2022 take 1 tablet by mouth once daily at bedtime Trazodone 50 mg tablet Discontinued 50 MG PO Daily at bedtime June 23, 2022 12:00am November 19, 2022 12:21pm Start: 01-03-2017 End: 03-20-2017 take 1 tablet by mouth once daily Trazodone 50 tablet Discontinued 50 MG PO Daily January 03, 2017 1:00am March 20, 2017 1:01pm Problems Active Problems Problem Classification Problem Date Documented Date Episodic/Chronic Anxiety disorders (20 sources) Anxiety; Translations: [Anxiety disorder, unspecified] Onset: 06-25-2022 06-25-2022 Chronic Contraceptive and procreative management (1 source) Sterilization requested; Translations: [Encounter for sterilization] 09-18-2024 Episodic Deficiency and other anemia (1 source) Iron deficiency anemia due to blood loss; Translations: [Iron deficiency anemia secondary to blood loss (chronic)] 10-20-2023 Chronic Deficiency and other anemia (1 source) Iron deficiency anemia secondary to blood loss (chronic); Translations: [Iron deficiency anemia secondary to blood loss (chronic)] Onset: 11-03-2023 Chronic Deficiency and other anemia (2 sources) Iron deficiency anemia; Translations: [Iron deficiency anemia, unspecified] 10-20-2023 Episodic Deficiency and other anemia (1 source) Iron deficiency anemia, unspecified; Translations: [Iron deficiency anemia, unspecified] 10-20-2023 Episodic Diabetes mellitus without complication (2 sources) Abnormal glucose tolerance test; Translations: [Other abnormal glucose] 06-15-2024 Episodic Disorders of lipid metabolism (3 sources) Pure hypercholesterolemia, unspecified; Translations: [Pure hyperglyceridemia] Onset: 06-04-2022 Chronic Early or threatened labor (13 sources) delivery following section; Translations: [ labor with delivery, unspecified trimester, not applicable or unspecified] Onset: 04-13-2024 04-13-2024 Episodic Headache; including migraine (2 sources) Chronic cluster headache; Translations: [Chronic cluster headache, not intractable] 06-01-2024 Chronic Headache; including migraine (1 source) Headache; Translations: [Nonintractable headache, unspecified chronicity pattern, unspecified headache type] 05-04-2024 Episodic Headache; including migraine (1 source) Headache; including migraine; Translations: [HEADACHE UNSPECIFIED] Onset: 09-03-2021 Heart valve disorders (1 source) Unspecified abnormalities of heart beat; Translations: [Unspecified abnormalities of heart beat] Onset: 06-28-2024 Episodic Immunizations and screening for infectious disease (20 sources) Contact with and (suspected) exposure to other viral communicable diseases; Translations: [Exposure to influenza] 02-27-2019 Episodic Menstrual disorders (20 sources) Missed period; [...] noninflammatory disorders of vagina] 04-06-2024 Episodic Other liver diseases (1 source) Fatty (change of) liver, not elsewhere classified; Translations: [Fatty (change of) liver, not elsewhere classified] Onset: 08-17-2024 Chronic Other nervous system disorders (1 source) Other chronic pain; Translations: [OTHER CHRONIC PAIN] Onset: 03-17-2022 Chronic Other and delivery including normal (13 sources) ; Translations: [Encounter for supervision of normal , unspecified, unspecified trimester] 02-03-2024 Episodic Other upper respiratory infections (20 sources) [...] SPEC] Onset: 07-14-2022 Episodic Residual codes; unclassified (11 sources) Gestation period, 35 weeks; Translations: [35 [...] Spondylosis; intervertebral disc disorders; other back problems (7 sources) Disorder of lumbar disc; Translations: [Other intervertebral disc degeneration, lumbar region] Onset: 09-26-2023 09-26-2023 Chronic Sprains and strains (20 sources) Low back strain; Translations: [Strain of muscle, fascia and tendon of lower back, initial encounter] 05-10-2020 Episodic Thyroid disorders (1 source) Hypothyroidism, unspecified; Translations: [Hypothyroidism, unspecified] Onset: 09-30-2023 Chronic Unclassified (3 sources) LOW BACK PAIN, UNSPECIFIED; Translations: [LOW BACK PAIN, UNSPECIFIED] Onset: 03-17-2022 Unclassified (2 sources) COUGH, UNSPECIFIED; Translations: [COUGH, UNSPECIFIED] Onset: 08-11-2021 Unclassified (20 sources) OB Reminders Onset: 09-02-2022 09-02-2022 Unclassified (1 source) Laboring Onset: 06-28-2024 Unclassified (1 source) Low back pain, unspecified; Translations: [Low back pain, unspecified] Onset: 09-26-2023 Urinary tract infections (6 sources) Urinary tract infectious disease; Translations: [Urinary tract infection, site not specified] 09-26-2023 Episodic Viral infection (20 sources) Viral disease; Translations: [Viral infection, unspecified] [...] ; childbirth; or the puerperium (20 sources) Gestational diabetes mellitus; Translations: [Gestational diabetes mellitus in , unspecified control] Onset: 06-25-2022 Resolved: 06-29-2024 06-25-2022 Episodic Genitourinary symptoms and ill-defined conditions (1 source) Hematuria, unspecified; Translations: [Hematuria, unspecified] Onset: 10-04-2023 Episodic Hemorrhage during ; abruptio placenta; placenta previa (1 source) Placenta previa Onset: 04-13-2024 Episodic Lymphadenitis (1 source) Generalized enlarged lymph nodes; Translations: [Generalized enlarged lymph nodes] Onset: 09-30-2023 Episodic Nutritional deficiencies (1 source) Iron deficiency; Translations: [Iron deficiency] Onset: 09-30-2023 Episodic Other complications of (4 sources) Other [...] conditions, third trimester] Onset: 06-25-2022 06-25-2022 Episodic Other lower respiratory disease (1 source) Shortness of breath; Translations: [Shortness of breath] Onset: 09-30-2023 Episodic Other screening for suspected conditions (not mental disorders or infectious disease) (4 sources) Patient encounter status; Translations: [Encounter for screening for diabetes mellitus] Onset: 04-13-2024 03-09-2024 Episodic Polyhydramnios and other problems of amniotic cavity (20 sources) Polyhydramnios with problem; Translations: [Polyhydramnios, third trimester, not applicable or unspecified] Onset: 06-25-2022 06-25-2022 Episodic Previous (1 source) Maternal care for unspecified type scar from previous delivery; Translations: [Maternal care for unspecified type scar from previous delivery] Onset: 04-13-2024 Episodic Residual codes; unclassified (1 source) 25 weeks gestation of ; Translations: [25 WEEKS GESTATION OF ] Onset: 09-03-2021 Episodic Residual codes; unclassified (1 source) 20 weeks gestation of ; Translations: [20 WEEKS GESTATION OF ] Onset: 08-11-2021 Episodic Unclassified (1 source) LOW BACK PAIN, UNSPECIFIED; Translations: [LOW BACK PAIN, UNSPECIFIED] Onset: 03-15-2022 Unclassified (1 source) COUGH, UNSPECIFIED; Translations: [COUGH, UNSPECIFIED] Onset: 08-08-2021 Results Test Name Value Interpretation Reference Range Facility Alanine aminotransferase [En zymatic activity/volume] in Serum or PlasmaOrdered By: Nataly Toure on 08-17-2024 ALT [Catalytic activity/Vol] 14 U/L Normal 7-52 [facility] Comment on above: Order Comment: Reaso n for Exam Fatty liver Reason for Exam Iron deficiency Reason for Exam High blood triglycerides Reason for Exam Hypothyroidism, unspecified type Performed By: #### T SH3 wRFLX, LIPID, CBC, FE and TIBC, CMP, SERGIO ####[facility] [id number] [place] [id number] [facility] Albumin [Mass/volume] in Ser um or Plasma by Bromocresol green (BCG) dye binding methoOrdered By: Nataly Toure on 08-17-2024 Albumin BCG dye [Mass/Vol] 4.3 g/dL 3.5-5.7 [facility] Alkaline phosphatase [Enzyma tic activity/volume] in Serum or PlasmaOrdered By: Nataly Toure on 08-17-2024 ALP [Catalytic activity/Vol] 84 U/L Normal 34-104 [facility] Comment on above: Order Comment: Reaso n for Exam Fatty liver Reason for Exam Iron deficiency Reason for Exam High blood triglycerides Reason for Exam Hypothyroidism, unspecified type Performed By: #### T SH3 wRFLX, LIPID, CBC, FE and TIBC, CMP, SERGIO ####[address] [place] [address] [facility] Aspartate aminotransferase [ Enzymatic activity/volume] in Serum or PlasmaOrdered By: Nataly Toure on 08-17-2024 AST [Catalytic activity/Vol] 12 U/L Low 13-39 [facility] Comment on above: Order Comment: Reaso n for Exam Fatty liver Reason for Exam Iron deficiency Reason for Exam High blood triglycerides Reason for Exam Hypothyroidism, unspecified type Performed By: #### T SH3 wRFLX, LIPID, CBC, FE and TIBC, CMP, SERGIO ####[id number] [place] [id number] [facility] Basophils [#/volume] in Bloo d by Automated countOrdered By: Nataly Toure on 08-17-2024 Basophils (Bld) [#/Vol] 0.0 10*3/uL Normal 0.0-0.2 [facility] Comment on above: Order Comment: Reaso n for Exam Fatty liver Result Comment: PERF ORMED BY: [facility] [address] [place] [address] PATHOLOGIST ASSESSMENT DIRECTOR RAUL COX M.D. Performed By: #### T SH3 wRFLX, LIPID, CBC, FE and TIBC, CMP, SERGIO ####[address] [place] [id number] [facility] Basophils/100 leukocytes in Blood by Automated countOrdered By: Nataly Toure on 08-17-2024 Basophils/100 WBC (Bld) 0.5 % Normal . [facility] Comment on above: Order Comment: Reaso n for Exam Fatty liver Performed By: #### T SH3 wRFLX, LIPID, CBC, FE and TIBC, CMP, SERGIO ####[address] [place] [id number] [facility] Bilirubin.total [Mass/volume ] in Serum or PlasmaOrdered By: Nataly Toure on 08-17-2024 Bilirubin [Mass/Vol] 0.5 mg/dL Normal 0.3-1.[address] [facility] Comment on above: Order Comment: Reaso n for Exam Fatty liver Reason for Exam Iron deficiency Reason for Exam High blood triglycerides Reason for Exam Hypothyroidism, unspecified type Performed By: #### T SH3 wRFLX, LIPID, CBC, FE and TIBC, CMP, SERGIO ####[address] [place] [address] [facility] Calcium [Mass/volume] in Ser um or PlasmaOrdered By: Nataly Toure on 08-17-2024 Calcium [Mass/Vol] 9.3 mg/dL Normal 8.6-10.3 [facility] Comment on above: Order Comment: Reaso n for Exam Fatty liver Reason for Exam Iron deficiency Reason for Exam High blood triglycerides Reason for Exam Hypothyroidism, unspecified type Performed By: #### T SH3 wRFLX, LIPID, CBC, FE and TIBC, CMP, SERGIO ####[address] [address] [facility] Carbon dioxide, total [Moles /volume] in Serum or PlasmaOrdered By: Nataly Toure on 08-17-2024 CO2 [Moles/Vol] 25.5 mmol/L Normal 21.0-31.0 [facility] Comment on above: Order Comment: Reaso n for Exam Fatty liver Reason for Exam Iron deficiency Reason for Exam High blood triglycerides Reason for Exam Hypothyroidism, unspecified type Performed By: #### T SH3 wRFLX, LIPID, CBC, FE and TIBC, CMP, SERGIO ####[address] [address] [place] Chloride [Moles/volume] in S rosa or PlasmaOrdered By: Nataly Toure on 08-17-2024 Chloride [Moles/Vol] 106 mmol/L Normal 98-[address] [facility] Comment on above: Order Comment: Reaso n for Exam Fatty liver Reason for Exam Iron deficiency Reason for Exam High blood triglycerides Reason for Exam Hypothyroidism, unspecified type Performed By: #### T SH3 wRFLX, LIPID, CBC, FE and TIBC, CMP, SERGIO ####[address] [address] [facility] Cholesterol [Mass/volume] in Serum or PlasmaOrdered By: Nataly Toure on 08-17-2024 Cholesterol [Mass/Vol] 169 mg/dL Normal 140-200 [facility] Comment on above: Chol less than 200 m g/dl low riskChol 201-239 mg/dl borderline riskChol 240 mg/dl and greater high risk Order Comment: Reaso n for Exam Fatty liver Reason for Exam Iron deficiency Reason for Exam High blood triglycerides Reason for Exam Hypothyroidism, unspecified type Result Comment: Chol less than 200 mg/dl low risk Chol 201-239 mg/dl borderline risk Chol 240 mg/dl and greater high risk Performed By: #### T SH3 wRFLX, LIPID, CBC, FE and TIBC, CMP, SERGIO ####[facility] [id number] [place] [address] [place] Cholesterol in HDL [Mass/vol ume] in Serum or PlasmaOrdered By: Nataly Toure on 08-17-2024 Cholesterol in HDL [Mass/Vol] 38 mg/dL Normal 23-92 [facility] Comment on above: HDL CHOL ATP-III CLA SSIFICATION Cardiovascular RiskHDL > or equal to 60 mg/dL LOWHDL < 40 mg/dL HIGH Order Comment: Reaso n for Exam Fatty liver Reason for Exam Iron deficiency Reason for Exam High blood triglycerides Reason for Exam Hypothyroidism, unspecified type Result Comment: HDL CHOL ATP-III CLASSIFICATION Cardiovascular Risk HDL > or equal to 60 mg/dL LOW HDL < 40 mg/dL HIGH Performed By: #### T SH3 wRFLX, LIPID, CBC, FE and TIBC, CMP, SERGIO ####[facility] [id number] [place] [address] [place] Cholesterol in LDL Calc [Mas s/Vol]Ordered By: Nataly Toure on 08-17-2024 Cholesterol in LDL [Mass/Vol] 81 mg/dL 0-100 [facility] Comment on above: LDL ATP III CLASSIFI CATIONLDL less than 100 mg/dL OptimalLDL 100-129 mg/dL Near or above optimalLDL 130-159 mg/dL Borderline highLDL 160-189 mg/dL HighLDL greater than 189 mg/dL Very high Cholesterol in VLDL Calc [Ma ss/Vol]Ordered By: Nataly Toure on 08-17-2024 Cholesterol in VLDL [Mass/Vol] 50 mg/dL [facility] Complete Blood Count Auto Di ffon 08-17-2024 Mean Corpuscular HGB Conc 33.3 g/dL Normal 32.0-35.0 [facility] Comment on above: Order Comment: Reaso n for Exam Fatty liver Performed By: #### T SH3 wRFLX, LIPID, CBC, FE and TIBC, CMP, SERGIO ####[address] NRBC% 0.1 /100{WBC} Normal 0-0.5 [facility] Comment on above: Order Comment: Reaso n for Exam Fatty liver Performed By: #### T SH3 wRFLX, LIPID, CBC, FE and TIBC, CMP, SERGIO ####[address] White Blood Count 7.4 [CFU]/mL Normal 3.8-11.6 [facility] Comment on above: Order Comment: Reaso n for Exam Fatty liver Performed By: #### T SH3 wRFLX, LIPID, CBC, FE and TIBC, CMP, SERGIO ####[address] Comprehensive Metabolic Pane marco 08-17-2024 Albumin [Mass/Vol] 4.3 g/dL Normal 3.5-5.7 [facility] Comment on above: Order Comment: Reaso n for Exam Fatty liver Reason for Exam Iron deficiency Reason for Exam High blood triglycerides Reason for Exam Hypothyroidism, unspecified type Performed By: #### T SH3 wRFLX, LIPID, CBC, FE and TIBC, CMP, SERGOI ####[address] GFR/1.73 sq M.predicted MDRD (S/P/Bld) [Vol rate/Area] mL/min/{1.73_m2} Normal [facility] Comment on above: Order Comment: Reaso n for Exam Fatty liver Reason for Exam Iron deficiency Reason for Exam High blood triglycerides Reason for Exam Hypothyroidism, unspecified type Performed By: #### T SH3 wRFLX, LIPID, CBC, FE and TIBC, CMP, SERGIO ####[address] Creatinine [Mass/volume] in Serum or PlasmaOrdered By: Nataly Toure on 08-17-2024 Creatinine [Mass/Vol] 0.68 mg/dL Normal 0.60-1.20 [facility] Comment on above: Order Comment: Reaso n for Exam Fatty liver Reason for Exam Iron deficiency Reason for Exam High blood triglycerides Reason for Exam Hypothyroidism, unspecified type Performed By: #### T SH3 wRFLX, LIPID, CBC, FE and TIBC, CMP, SERGIO ####[address] Eosinophils [#/volume] in Bl ood by Automated countOrdered By: Nataly Toure on 08-17-2024 Eosinophils (Bld) [#/Vol] 0.1 10*3/uL Normal 0.0-0.45 [facility] Comment on above: Order Comment: Reaso n for Exam Fatty liver Performed By: #### T SH3 wRFLX, LIPID, CBC, FE and TIBC, CMP, SERGIO ####[address] Eosinophils/100 leukocytes i n Blood by Automated countOrdered By: Nataly Toure on 08-17-2024 Eosinophils/100 WBC (Bld) 1.2 % Normal . [facility] Comment on above: Order Comment: Reaso n for Exam Fatty liver Performed By: #### T SH3 wRFLX, LIPID, CBC, FE and TIBC, CMP, SERGIO ####[address] Erythrocyte distribution wid th [Ratio] by Automated countOrdered By: Nataly Toure on 08-17-2024 Erythrocyte distribution width (RBC) [Ratio] 14.5 % Normal 11.9-15.3 [facility] Comment on above: Order Comment: Reaso n for Exam Fatty liver Performed By: #### T SH3 wRFLX, LIPID, CBC, FE and TIBC, CMP, SERGIO ####[place] [id number] [facility] Erythrocytes [#/volume] in B lood by Automated countOrdered By: Nataly Toure on 08-17-2024 RBC (Bld) [#/Vol] 4.90 10*6/uL Normal 3.60-5.00 [facility] Comment on above: Order Comment: Reaso n for Exam Fatty liver Performed By: #### T SH3 wRFLX, LIPID, CBC, FE and TIBC, CMP, SERGIO ####[facility] [place] [address] [facility] Ferritin [Mass/volume] in Se rum or PlasmaOrdered By: Nataly Toure on 08-17-2024 Ferritin [Mass/Vol] 41.5 ng/mL Normal 11.0-306.8 [facility] Comment on above: Order Comment: Reaso n for Exam Fatty liver Reason for Exam Iron deficiency Reason for Exam High blood triglycerides Reason for Exam Hypothyroidism, unspecified type Performed By: #### T SH3 wRFLX, LIPID, CBC, FE and TIBC, CMP, SERGIO ####[address] [place] [address] [facility] Glucose [Mass/volume] in Ser um or PlasmaOrdered By: Nataly Toure on 08-17-2024 Glucose [Mass/Vol] 132 mg/dL High 70-100 [facility] Comment on above: ADA recommended refe rence rangeRandom Glucose Reference Range is dependent on time and content of last meal. Glucose of more than 200 mg/dL in a nonstressed, ambulatory subject supports the diagnosis of Diabetes Mellitus. Order Comment: Reaso n for Exam Fatty liver Reason for Exam Iron deficiency Reason for Exam High blood triglycerides Reason for Exam Hypothyroidism, unspecified type Result Comment: [place] om Glucose Reference Range is dependent on time and content of last meal. Glucose of more than 200 mg/dL in a nonstressed, ambulatory subject supports the diagnosis of Diabetes Mellitus. ADA recommended reference range Performed By: #### T SH3 wRFLX, LIPID, CBC, FE and TIBC, CMP, SERGIO ####[facility] [place] [address] [facility] Hematocrit [Volume Fraction] of Blood by Automated countOrdered By: Nataly Toure on 08-17-2024 Hematocrit (Bld) [Volume fraction] 39.2 % Normal 34.0-46.4 [facility] Comment on above: Order Comment: Reaso n for Exam Fatty liver Performed By: #### T SH3 wRFLX, LIPID, CBC, FE and TIBC, CMP, SERGIO ####[address] [place] [address] [facility] Hemoglobin [Mass/volume] in BloodOrdered By: Nataly Toure on 08-17-2024 Hemoglobin (Bld) [Mass/Vol] 13.1 g/dL Normal 11.8-15.4 [facility] Comment on above: Order Comment: Reaso n for Exam Fatty liver Performed By: #### T SH3 wRFLX, LIPID, CBC, FE and TIBC, CMP, SERGIO ####[address] [place] [address] [facility] Iron [Mass/volume] in Serum or PlasmaOrdered By: Nataly Toure on 08-17-2024 Iron [Mass/Vol] 57 ug/dL Normal 50-212 [facility] Comment on above: Order Comment: Reaso n for Exam Fatty liver Reason for Exam Iron deficiency Reason for Exam High blood triglycerides Reason for Exam Hypothyroidism, unspecified type Performed By: #### T SH3 wRFLX, LIPID, CBC, FE and TIBC, CMP, SERGIO ####[address] [address] [facility] Iron and TIBC Profileon % Iron Saturation 16.2 % Low 20-50 [facility] Comment on above: Order Comment: Reaso n for Exam Fatty liver Reason for Exam Iron deficiency Reason for Exam High blood triglycerides Reason for Exam Hypothyroidism, unspecified type Performed By: #### T SH3 wRFLX, LIPID, CBC, FE and TIBC, CMP, SERGIO ####[address] [address] [facility] Total Iron Binding Capacity 351 ug/dL Normal 255-450 [facility] Comment on above: Order Comment: Reaso n for Exam Fatty liver Reason for Exam Iron deficiency Reason for Exam High blood triglycerides Reason for Exam Hypothyroidism, unspecified type Performed By: #### T SH3 wRFLX, LIPID, CBC, FE and TIBC, CMP, SERGIO ####[address] [address] [place] Leukocytes [#/volume] correc kee for nucleated erythrocytes in Blood by Automated counOrdered By: Nataly Toure on 08-17-2024 WBC corrected for nucl RBC Auto (Bld) [#/Vol] 7.4 10*3/uL 3.8-11.6 [facility] Leukocytes [#/volume] in Blo od by Automated countOrdered By: Nataly Toure on 08-17-2024 WBC (Bld) [#/Vol] 7.4 10*3/uL Normal 3.8-11.6 [facility] Comment on above: Order Comment: Reaso n for Exam Fatty liver Performed By: #### T SH3 wRFLX, LIPID, CBC, FE and TIBC, CMP, SERGIO ####[facility] [place] [id number] [facility] Lipid Panelon 08-17-2024 LDL Cholesterol,Calculated 81 mg/dL Normal 0-100 [facility] Comment on above: Order Comment: Reaso n for Exam Fatty liver Reason for Exam Iron deficiency Reason for Exam High blood triglycerides Reason for Exam Hypothyroidism, unspecified type Result Comment: LDL ATP III CLASSIFICATION LDL less than 100 mg/dL Optimal LDL 100-129 mg/dL Near or above optimal LDL 130-159 mg/dL Borderline high LDL 160-189 mg/dL High LDL greater than 189 mg/dL Very high Performed By: #### T SH3 wRFLX, LIPID, CBC, FE and TIBC, CMP, SERGIO ####[facility] Triglyceride w/Reflex 250 mg/dL High 0-149 [facility] Comment on above: Order Comment: Reaso n for Exam Fatty liver Reason for Exam Iron deficiency Reason for Exam High blood triglycerides Reason for Exam Hypothyroidism, unspecified type Result Comment: TRIG ATP III CLASSIFICATION TRIG less than 150 mg/dL Normal TRIG 150-199 mg/dL Borderline high TRIG 200-500 mg/dL High TRIG greater than 500 mg/dL Very high Standard traceable to the Center for Disease Conrtrol and Prevention (CDC) test method. Performed By: #### T SH3 wRFLX, LIPID, CBC, FE and TIBC, CMP, SERGIO ####[address] VLDL CHOLESTEROL 50 mg/dL Normal [facility] Comment on above: Order Comment: Reaso n for Exam Fatty liver Reason for Exam Iron deficiency Reason for Exam High blood triglycerides Reason for Exam Hypothyroidism, unspecified type Performed By: #### T SH3 wRFLX, LIPID, CBC, FE and TIBC, CMP, SERGIO ####[address] Lymphocytes [#/volume] in Bl ood by Automated countOrdered By: Nataly Toure on 08-17-2024 Lymphocytes (Bld) [#/Vol] 2.1 10*3/uL Normal 1.00-4.8 [facility] Comment on above: Order Comment: Reaso n for Exam Fatty liver Performed By: #### T SH3 wRFLX, LIPID, CBC, FE and TIBC, CMP, SERGIO ####[address] Lymphocytes/100 leukocytes i n Blood by Automated countOrdered By: Nataly Toure on 08-17-2024 Lymphocytes/100 WBC (Bld) 28.3 % Normal . [facility] Comment on above: Order Comment: Reaso n for Exam Fatty liver Performed By: #### T SH3 wRFLX, LIPID, CBC, FE and TIBC, CMP, SERGIO ####[address] MCH [Entitic mass] by Automa kee countOrdered By: Nataly Toure on 08-17-2024 MCH (RBC) [Entitic mass] 26.6 pg Normal 24.7-34.3 [facility] Comment on above: Order Comment: Reaso n for Exam Fatty liver Performed By: #### T SH3 wRFLX, LIPID, CBC, FE and TIBC, CMP, SERGIO ####[address] MCHC Auto (RBC) [Mass/Vol]Or dered By: Nataly Toure on 08-17-2024 MCHC (RBC) [Mass/Vol] 33.3 g/dL 32.0-35.0 [facility] MCV [Entitic volume] by Auto mated countOrdered By: Nataly Toure on 08-17-2024 MCV (RBC) [Entitic vol] 79.9 fL Low 80-100 [facility] Comment on above: Order Comment: Reaso n for Exam Fatty liver Performed By: #### T SH3 wRFLX, LIPID, CBC, FE and TIBC, CMP, SERGIO ####[id number] [place] [id number] [facility] Monocytes [#/volume] in Bloo d by Automated countOrdered By: Nataly Toure on 08-17-2024 Monocytes (Bld) [#/Vol] 0.5 10*3/uL Normal 0.0-0.8 [facility] Comment on above: Order Comment: Reaso n for Exam Fatty liver Performed By: #### T SH3 wRFLX, LIPID, CBC, FE and TIBC, CMP, SERGIO ####[place] [id number] [place] Monocytes/100 leukocytes in Blood by Automated countOrdered By: Nataly Toure on 08-17-2024 Monocytes/100 WBC (Bld) 6.2 % Normal . [facility] Comment on above: Order Comment: Reaso n for Exam Fatty liver Performed By: #### T SH3 wRFLX, LIPID, CBC, FE and TIBC, CMP, SERGIO ####[place] [id number] [facility] Neutrophils [#/volume] in Bl ood by Automated countOrdered By: Nataly Toure on 08-17-2024 Neutrophils (Bld) [#/Vol] 4.7 10*3/uL Normal 1.8-7.7 [facility] Comment on above: Order Comment: Reaso n for Exam Fatty liver Performed By: #### T SH3 wRFLX, LIPID, CBC, FE and TIBC, CMP, SERGIO ####[address] [address] [place] Neutrophils/100 leukocytes i n Blood by Automated countOrdered By: Nataly Toure on 08-17-2024 Neutrophils/100 WBC (Bld) 63.8 % Normal . [facility] Comment on above: Order Comment: Reaso n for Exam Fatty liver Performed By: #### T SH3 wRFLX, LIPID, CBC, FE and TIBC, CMP, SERGIO ####[place] [id number] No Panel InformationOrdered By: Nataly Toure on 08-17-2024 Estimated GFR (CKD-EPI) > 60.0 mL/Min [facility] Creatinine Clearance (Chem N/A [facility] Nucleated erythrocytes [Pres ence] in Blood by Automated countOrdered By: Nataly Toure on 08-17-2024 Nucleated RBC Auto Ql (Bld) 0.1 /100{WBC} 0-0.5 [facility] Platelet mean volume [Entiti c volume] in Blood by Automated countOrdered By: Nataly Toure on 08-17-2024 Platelet mean volume (Bld) [Entitic vol] 9.1 fL Normal 6.3-10.7 [facility] Comment on above: Order Comment: Reaso n for Exam Fatty liver Performed By: #### T SH3 wRFLX, LIPID, CBC, FE and TIBC, CMP, SERGIO ####[place] [id number] Platelets [#/volume] in Bloo d by Automated countOrdered By: Nataly Toure on 08-17-2024 Platelets (Bld) [#/Vol] 234 10*3/uL Normal 150-450 [facility] Comment on above: Order Comment: Reaso n for Exam Fatty liver Performed By: #### T SH3 wRFLX, LIPID, CBC, FE and TIBC, CMP, SERGIO ####[place] [id number] Potassium [Moles/volume] in Serum or PlasmaOrdered By: Nataly Toure on 08-17-2024 Potassium [Moles/Vol] 4.3 mmol/L Normal 3.5-5.1 [facility] Comment on above: Order Comment: Reaso n for Exam Fatty liver Reason for Exam Iron deficiency Reason for Exam High blood triglycerides Reason for Exam Hypothyroidism, unspecified type Performed By: #### T SH3 wRFLX, LIPID, CBC, FE and TIBC, CMP, SERGIO ####[facility] [id number] [place] [address] [facility] Protein [Mass/volume] in Ser um or PlasmaOrdered By: Nataly Toure on 08-17-2024 Protein [Mass/Vol] 7.2 g/dL Normal 6.4-8.9 [facility] Comment on above: Order Comment: Reaso n for Exam Fatty liver Reason for Exam Iron deficiency Reason for Exam High blood triglycerides Reason for Exam Hypothyroidism, unspecified type Performed By: #### T SH3 wRFLX, LIPID, CBC, FE and TIBC, CMP, SERGIO ####[facility] [id number] [place] [id number] [facility] Serum globulin measurement b y calculation (mass/volume)Ordered By: Nataly Toure on 08-17-2024 Globulin (S) [Mass/Vol] 2.9 g/dL Normal [facility] Comment on above: Order Comment: Reaso n for Exam Fatty liver Reason for Exam Iron deficiency Reason for Exam High blood triglycerides Reason for Exam Hypothyroidism, unspecified type Performed By: #### T SH3 wRFLX, LIPID, CBC, FE and TIBC, CMP, SERGIO ####[facility] [id number] [place] [id number] [facility] Serum or plasma albumin/glob ulin mass ratioOrdered By: Nataly Toure on 08-17-2024 Albumin/Globulin [Mass ratio] 1.5 {ratio} Normal [facility] Comment on above: Order Comment: Reaso n for Exam Fatty liver Reason for Exam Iron deficiency Reason for Exam High blood triglycerides Reason for Exam Hypothyroidism, unspecified type Performed By: #### T SH3 wRFLX, LIPID, CBC, FE and TIBC, CMP, SERGIO ####[facility] [id number] [place] [id number] [facility] Serum or plasma anion gap de terminationOrdered By: Nataly Toure on 08-17-2024 Anion gap [Moles/Vol] 10.8 mmol/L Normal 6.0-15.0 [facility] Comment on above: Order Comment: Reaso n for Exam Fatty liver Reason for Exam Iron deficiency Reason for Exam High blood triglycerides Reason for Exam Hypothyroidism, unspecified type Performed By: #### T SH3 wRFLX, LIPID, CBC, FE and TIBC, CMP, SERGIO ####[facility] [id number] [place] [id number] [facility] Serum or plasma iron binding capacity measurement (mass/volume)Ordered By: Nataly Toure on 08-17-2024 Iron binding capacity [Mass/Vol] 351 ug/dL 255-450 [facility] Serum or plasma iron saturat ion measurement (mass fraction)Ordered By: Nataly Toure on 08-17-2024 Iron saturation [Mass fraction] 16.2 % Low 20-50 [facility] Serum or plasma total choles terol/high density lipoprotein (HDL) cholesterol mass ratOrdered By: Nataly Toure on 08-17-2024 Cholesterol.total/Chol esterol in HDL [Mass ratio] 4.4 {ratio} Normal <5.0 [facility] Comment on above: Order Comment: Reaso n for Exam Fatty liver Reason for Exam Iron deficiency Reason for Exam High blood triglycerides Reason for Exam Hypothyroidism, unspecified type Performed By: #### T SH3 wRFLX, LIPID, CBC, FE and TIBC, CMP, SERGIO ####[facility] [place] [phone] [facility] Sodium [Moles/volume] in Ser um or PlasmaOrdered By: Nataly Toure on 08-17-2024 Sodium [Moles/Vol] 138 mmol/L Normal 136-145 [facility] Comment on above: Order Comment: Reaso n for Exam Fatty liver Reason for Exam Iron deficiency Reason for Exam High blood triglycerides Reason for Exam Hypothyroidism, unspecified type Performed By: #### T SH3 wRFLX, LIPID, CBC, FE and TIBC, CMP, SERGIO ####[facility] [id number] [place] [id number] [facility] Thyroid Stim Hormone w/Rflxo n 08-17-2024 Thyroid Stim Hormone w/Rflx 2.50 u[iU]/mL Normal 0.45-5.33 [facility] Comment on above: Order Comment: Reaso n for Exam Fatty liver Reason for Exam Iron deficiency Reason for Exam High blood triglycerides Reason for Exam Hypothyroidism, unspecified type Result Comment: PERF ORMED BY: [facility] [address] [id number] PATHOLOGIST ASSESSMENT DIRECTOR RAUL COX M.D. Performed By: #### T SH3 wRFLX, LIPID, CBC, FE and TIBC, CMP, SERGIO ####[facility] [place] [address] [facility] Thyrotropin [Units/volume] i n Serum or PlasmaOrdered By: Nataly Toure on 08-17-2024 TSH Qn 2.50 m[IU]/L 0.45-5.33 [facility] Transferrin [Mass/volume] in Serum or PlasmaOrdered By: Nataly Toure on 08-17-2024 Transferrin [Mass/Vol] 251 mg/dL Normal 203-362 [facility] Comment on above: Order Comment: Reaso n for Exam Fatty liver Reason for Exam Iron deficiency Reason for Exam High blood triglycerides Reason for Exam Hypothyroidism, unspecified type Performed By: #### T SH3 wRFLX, LIPID, CBC, FE and TIBC, CMP, SERGIO ####[place] [id number] [place] [id number] [facility] Triglyceride [Mass/volume] i n Serum or PlasmaOrdered By: Nataly Toure on 08-17-2024 Triglyceride [Mass/Vol] 250 mg/dL High 0-149 [facility] Comment on above: TRIG ATP III CLASSIF ICATIONTRIG less than 150 mg/dL NormalTRIG 150-199 mg/dL Borderline highTRIG 200-500 mg/dL High TRIG greater than 500 mg/dL Very highStandard traceable to the Center for Disease Conrtrol and Prevention (CDC) test method. Urea nitrogen [Mass/volume] in Serum or PlasmaOrdered By: Nataly Toure on 08-17-2024 Urea nitrogen [Mass/Vol] 13 mg/dL Normal 7-25 [facility] Comment on above: Order Comment: Reaso n for Exam Fatty liver Reason for Exam Iron deficiency Reason for Exam High blood triglycerides Reason for Exam Hypothyroidism, unspecified type Performed By: #### T SH3 wRFLX, LIPID, CBC, FE and TIBC, CMP, SERGIO ####[place] [id number] [place] [id number] [facility] BEDSIDE GLUCOSEon 06-29-2024 Glucose [Mass/Vol] 149 mg/dL High 65-99 [facility] Comment on above: Performed By: #### B EDG #### [facility] [address] [place] [address] VIR Glucose [Mass/Vol] 156 mg/dL High 65-99 [facility] Comment on above: Performed By: #### B EDG #### [facility] [address] [facility] [address] VIR BLOOD GAS, ARTERIAL, CORDon 06-29-2024 %O2 SATURATION CORD ARTERIAL 10.0 Normal [facility] Comment on above: Performed By: #### B EDG #### [facility]) [address] [facility] [place] [address] VIR BASE,DEFICIT -4.0 mmol/L Low 0.0-2.0 [facility] Comment on above: Performed By: #### B EDG #### [facility]) [address] [facility] [place] [address] VIR PCO2 CORD ARTERIAL 59.8 mmHG Normal [facility] Comment on above: Performed By: #### B EDG #### [facility] [address] [place] [address] VIR PH CORD ARTERIAL 7.218 Normal [facility] Comment on above: Performed By: #### B EDG #### [facility] [address] [facility] [place] [address] VIR PO2 CORD ARTERIAL 13 mmHG Normal [facility] Comment on above: Performed By: #### B EDG #### [facility] [address] [facility] [place] [address] VIR POC JEIMY'S TEST N/A Normal [facility] Comment on above: Performed By: #### B EDG #### [facility] [address] [place] [address] VIR SAMPLE SITE Art Cord Normal [facility] Comment on above: Performed By: #### B EDG #### [facility] [address] [place] [address] VIR SAMPLE TYPE UMBILICAL CORD Normal [facility] Comment on above: Performed By: #### B EDG #### [facility]) [address] [place] [address] VIR SOURCE OF OXYGEN Room Air Normal [facility] Comment on above: Performed By: #### B EDG #### [facility] [address] [place] [address] VIR BLOOD GAS, VENOUS, CORDon BASE,DEFICIT -4.0 mmol/L Low 0.0-2.0 [facility] Comment on above: Performed By: #### C MP #### [facility] ([facility]) [address] [place] [address] VIR HCO3 CORD VENOUS 22 mmol/L Normal [facility] Comment on above: Performed By: #### C MP #### [facility] ([facility]) [address] [place] [address] VIR Oxygen saturation in Blood 59.0 % Normal [facility] Comment on above: Performed By: #### C MP #### [facility] ([facility]) [address] [place] [address] VIR PCO2 CORD VENOUS 39.7 Normal [facility] Comment on above: Performed By: #### C MP #### [facility] ([facility]) [address] [place] [address] VIR PH CORD VENOUS 7.347 Normal [facility] Comment on above: Performed By: #### C MP #### [facility] ([facility]) [address] [place] [address] VIR PO2 CORD VENOUS 32 Normal 22-35 [facility] Comment on above: Performed By: #### C MP #### [facility] ([facility]) [address] [place] [address] VIR POC JEIMY'S TEST N/A Normal [facility] Comment on above: Performed By: #### C MP #### [facility] ([facility]) [address] [place] [address] VIR SAMPLE SITE Arnel Cord Normal [facility] Comment on above: Performed By: #### C MP #### [facility] ([facility]) [address] [place] [address] VIR SAMPLE TYPE UMBILICAL CORD Normal [facility] Comment on above: Performed By: #### C MP #### [facility] ([facility]) [address] [place] [address] VIR SOURCE OF OXYGEN Room Air Normal [facility] Comment on above: Performed By: #### C MP #### [facility] ([facility]) [address] [place] [address] VIR APTTon 06-28-2024 aPTT Coag (Bld) [Time] 25 s Low 26-37 [facility] Comment on above: Performed By: #### P TT #### [facility] ([facility]) [address] [place] [address] VIR BEDSIDE GLUCOSEon 06-28-2024 Glucose [Mass/Vol] 152 mg/dL High 65-99 [facility] Comment on above: Performed By: #### B EDG #### [facility] [address] [place] [address] VIR Glucose [Mass/Vol] 125 mg/dL High [address] [place] [address] Comment on above: Performed By: #### B EDG #### [facility]) [address] [place] [address] VIR Glucose [Mass/Vol] 146 mg/dL High 65-99 [facility] Comment on above: Performed By: #### B EDG #### [facility]) [address] [place] [address] VIR CBC WITH AUTO DIFFERENTIALon 06-28-2024 BASOPHILS ABSOLUTE COUNT (10*3/UL) BY AUTOMATED COUNT 0.1 10*3/uL Normal 0.0-0.2 [facility] Comment on above: Performed By: #### C BCA #### [facility] ([facility]) [address] [place] [address] VIR BASOPHILS RELATIVE PERCENT BY AUTOMATED COUNT 0.5 % Normal [facility] Comment on above: Performed By: #### C BCA #### [facility] ([facility]) [address] [place] [address] VIR CELLAVISION DIFFERENTIAL TYPE AUTOMATED DIFFERENTIAL Normal [facility] Comment on above: Performed By: #### C BCA #### [facility] ([facility]) [address] [place] [address] VIR Eosinophils (Bld) [#/Vol] 0.0 10*3/uL Normal 0.0-0.4 [facility] Comment on above: Performed By: #### C BCA #### [facility] ([facility]) [address] [place] [address] VIR EOSINOPHILS RELATIVE PERCENT BY AUTOMATED COUNT 0.0 % Normal [facility] Comment on above: Performed By: #### C BCA #### [facility] ([facility]) [address] [place] [address] VIR Erythrocyte distribution width (RBC) [Ratio] 14.1 % Normal 11.5-15 [facility] Comment on above: Performed By: #### C BCA #### [facility] ([facility]) [address] [place] [address] VIR Hematocrit (Bld) [Volume fraction] 34.4 % Low 35-47 [facility] Comment on above: Performed By: #### C BCA #### [facility] ([facility]) [address] [place] [address] VIR Hemoglobin (Bld) [Mass/Vol] 11.7 g/dL Normal 11.7-15.5 [facility] Comment on above: Performed By: #### C BCA #### [facility] ([facility]) [address] [place] [address] VIR LYMPHOCYTES ABSOLUTE COUNT (10*3/UL) BY AUTOMATED COUNT 0.9 10*3/uL Low 1.0-3.5 [facility] Comment on above: Performed By: #### C BCA #### [facility] ([facility]) [address] [place] [address] VIR LYMPHOCYTES RELATIVE PERCENT BY AUTOMATED COUNT 6.6 % Normal [facility] Comment on above: Performed By: #### C BCA #### [facility] ([facility]) [address] [place] [address] VIR MCH (RBC) [Entitic mass] 28.0 pg Normal 27-34 [facility] Comment on above: Performed By: #### C BCA #### [facility] ([facility]) [address] [place] [address] VIR MCHC (RBC) [Mass/Vol] 34.0 g/dL Normal 32-36 [facility] Comment on above: Performed By: #### C BCA #### [facility] ([facility]) [address] [place] [address] VIR MCV (RBC) [Entitic vol] 82 fL Normal 80-100 [facility] Comment on above: Performed By: #### C BCA #### [facility] ([facility]) [address] [place] [address] VIR MONOCYTES ABSOLUTE COUNT (10*3/UL) BY AUTOMATED COUNT 0.3 10*3/uL Normal 0.0-0.9 [facility] Comment on above: Performed By: #### C BCA #### [facility] ([facility]) [address] [place] [address] VIR MONOCYTES RELATIVE PERCENT BY AUTOMATED COUNT 2.3 % Normal [facility] Comment on above: Performed By: #### C BCA #### [facility] ([facility]) [address] [place] [address] VIR NEUTROPHILS ABSOLUTE COUNT BY AUTOMATED COUNT 12.6 10*3/uL High 1.5-6.6 [facility] Comment on above: Performed By: #### C BCA #### [facility] ([facility]) [address] [place] [address] VIR NEUTROPHILS RELATIVE PERCENT BY AUTOMATED COUNT 90.6 % Normal [facility] Comment on above: Performed By: #### C BCA #### [facility] ([facility]) [address] [place] [address] VIR Platelet mean volume (Bld) [Entitic vol] 9.4 fL Normal 7-12 [facility] Comment on above: Performed By: #### C BCA #### [facility] ([facility]) [address] [place] [address] VIR Platelets (Bld) [#/Vol] 195 10*3/uL Normal 150-450 [facility] Comment on above: Performed By: #### C BCA #### [facility] ([facility]) [address] [place] [address] VIR RBC COUNT 4.18 X10E12/L Normal 3.8-5.2 [facility] Comment on above: Performed By: #### C BCA #### [facility] ([facility]) [address] [place] [address] VIR WBC (Bld) [#/Vol] 13.9 10*3/uL High 4-11 [facility] Comment on above: Performed By: #### C BCA #### [facility] ([facility]) [address] [place] [address] VIR CHLAMYDIA/GC BY PCR GLYNN SW ABon 06-28-2024 CHLAMYDIA/GC BY PCR GLYNN SWAB CHLAMYDIA DNA(PCR) Negative Chlamydia trachomatis not detected by nucleic acid amplification. This does not exclude the possibility of infection because results are dependent on adequate specimen collection. GONORRHOEAE DNA(PCR) Negative Neisseria gonorrhoeae not detected by nucleic acid amplification. This does not exclude the possibility of infection because results are dependent on adequate specimen collection. Normal [facility] Comment on above: Performed By: #### B EDG #### [facility]) [address] [place] [address] VIR COMPREHENSIVE METABOLIC PANE Marco 06-28-2024 Albumin [Mass/Vol] 3.3 g/dL Normal 3.2-5.3 [facility] Comment on above: Performed By: #### C MP #### [facility] ([facility]) [address] [place] [address] VIR ALP [Catalytic activity/Vol] 89 U/L Normal 39-130 [facility] Comment on above: Performed By: #### C MP #### [facility] ([facility]) [address] [place] [address] VIR ALT [Catalytic activity/Vol] 7 U/L Normal <=31 [facility] Comment on above: Performed By: #### C MP #### [facility] ([facility]) [address] [place] [address] VIR Anion gap [Moles/Vol] 11 mmol/L Normal 5-15 [facility] Comment on above: Performed By: #### C MP #### [facility] ([facility]) [address] [place] [address] VIR AST [Catalytic activity/Vol] 11 U/L Normal <=41 [facility] Comment on above: Performed By: #### C MP #### [facility] ([facility]) [address] [place] [address] VIR Bilirubin [Mass/Vol] 0.4 mg/dL Normal 0.3-1.2 [facility] Comment on above: Performed By: #### C MP #### [facility] ([facility]) [address] [place] [address] VIR Calcium [Mass/Vol] 7.9 mg/dL Low 8.5-10.5 [facility] Comment on above: Performed By: #### C MP #### [facility] ([facility]) [address] [place] [address] VIR Chloride [Moles/Vol] 106 mmol/L Normal 98-109 [facility] Comment on above: Performed By: #### C MP #### [facility] ([facility]) [address] [place] [address] VIR CO2 [Moles/Vol] 19 mmol/L Low 22-32 [facility] Comment on above: Performed By: #### C MP #### [facility] ([facility]) [address] [place] [address] VIR Creatinine [Mass/Vol] 0.50 mg/dL Normal 0.40-1.00 [facility] Comment on above: Result Comment: METH OD TRACEABLE TO IDMS STANDARD Performed By: #### C MP #### [facility] ([facility]) [address] [place] [address] VIR EGFR (CKD-EPI) NON-RACE DEPENDENT >^90 Normal >=60 [facility] Comment on above: Result Comment: Repo rted eGFR is based on the CKD-EPI 2020 equation that does not use a race coefficient. Performed By: #### C MP #### [facility] ([facility]) [address] [place] [address] VIR Glucose [Mass/Vol] 124 mg/dL High 65-99 [facility] Comment on above: Performed By: #### C MP #### [facility] ([facility]) [address] [place] [address] VIR Potassium [Moles/Vol] 3.8 mmol/L Normal 3.5-5.0 [facility] Comment on above: Performed By: #### C MP #### [facility] ([facility]) [address] [place] [address] VIR Protein [Mass/Vol] 6.2 g/dL Normal 6.0-8.0 [facility] Comment on above: Performed By: #### C MP #### [facility] ([facility]) [address] [place] [address] VIR Sodium [Moles/Vol] 136 mmol/L Normal 134-146 [facility] Comment on above: Performed By: #### C MP #### [facility] ([facility]) [address] [place] [address] VIR Urea nitrogen [Mass/Vol] 8 mg/dL Normal 5-23 [facility] Comment on above: Performed By: #### C MP #### [facility] ([facility]) [address] [place] [address] VIR DRUG SCREEN, URINEon 025 AMPHETAMINE/METHAMP Negative Normal Negative [facility] Comment on above: Result Comment: AMPH /METH screening cut off = 1000 ng/mL Performed By: #### D BURCH #### [facility] ([facility]) [address] [place] [address] VIR BARBITURATES Negative Normal Negative [facility] Comment on above: Result Comment: Kelly iturates screening cut off value = 200 ng/mL Performed By: #### D BURCH #### [facility] ([facility]) [address] [place] [address] VIR BENZODIAZEPINES Negative Normal Negative [facility] Comment on above: Result Comment: Joe odiazepines screening cut off value = 200 ng/mL Performed By: #### D BURCH #### [facility] ([facility]) [address] [place] [address] VIR CANNABINOIDS Negative Normal Negative [facility] Comment on above: Result Comment: Ronald abinoids/THC screening cut off value = 50 ng/mL Performed By: #### D BURCH #### [facility] ([facility]) [address] [place] [address] VIR COCAINE METABOLITE Negative Normal Negative [facility] Comment on above: Result Comment: Coca ine screening cut off value = 300 ng/mL Performed By: #### D BURCH #### [facility] ([facility]) [address] [place] [address] VIR ECSTASY Negative Normal Negative [facility] Comment on above: Result Comment: Ecst asy screening cut off value = 500 ng/mL Performed By: #### D BURCH #### [facility] ([facility]) [address] [place] [address] VIR METHADONE Negative Normal Negative [facility] Comment on above: Result Comment: Meth adone screening cut off value = 300 ng/mL. Performed By: #### D BURCH #### [facility] ([facility]) [address] [place] [address] VIR OPIATES Negative Normal Negative [facility] Comment on above: Result Comment: Opia lalito screening cut off value = 300 ng/mL This test is used for the detection of codeine, hydrocodone (>1000 ng/mL), morphine and hydromorphone (>900 ng/mL) in urine. Performed By: #### D BURCH #### [facility] ([facility]) [address] [place] [address] VIR OXYCODONE Negative Normal Negative [facility] Comment on above: Result Comment: Oxyc odone screening cut off value = 300 ng/mL This test is used for the detection of oxycodone and oxymorphone in urine. Performed By: #### D BURCH #### [facility] ([facility]) [address] [place] [address] VIR PHENCYCLIDINE Negative Normal Negative [facility] Comment on above: Result Comment: Phen cyclidine screening cut off value = 25 ng/mL Performed By: #### D BURCH #### [facility] ([facility]) [address] [place] [address] VIR FENTANYL, URINE QUALITATIVEo n 06-28-2024 FENTANYL, URINE QUALITATIVE UFEN FENTANYL, URINE QUALITATIVE Cancelled Normal [facility] FIBRINOGENon 06-28-2024 FIBRINOGEN 515 mg/dL High 190-480 [facility] Comment on above: Performed By: #### F IBR #### [facility] ([facility]) [address] [place] [address] VIR MAGNESIUMon 06-28-2024 Magnesium [Mass/Vol] 4.5 mg/dL High 1.8-2.6 [facility] Comment on above: Performed By: #### B EDG #### [facility] [address] [place] [address] VIR PROTIME AND INRon 06-28-2024 INR 1.0 Normal 0.9-1.2 [facility] Comment on above: Performed By: #### P INR #### [facility] ([facility]) [address] [place] [address] VIR PT Coag (PPP) [Time] 11.0 s Normal 9.8-13.2 [facility] Comment on above: Performed By: #### P INR #### [facility] ([facility]) [address] [place] [address] VIR STREP B SCREENon 06-28-2024 STREP B SCREEN CULTURE RESULTS NEGATIVE FOR GROUP B STREPTOCOCCUS BY NUCLEIC ACID AMPLIFICATION Normal [facility] Comment on above: Performed By: #### B EDG #### [facility]) [address] [place] [address] VIR SYPHILIS TOTAL(UNKNOWN SYPHI LIS STATUS)on 06-28-2024 SYPHILIS TOTAL <^0.2 Normal <=0.8 [facility] Comment on above: Order Comment: NON R EACTIVE No serologic evidence of infection to Treponema pallidum. Repeat testing may be considered in patients with suspected acute or primary syphilis in 2 to 4 weeks. Performed By: #### S YP #### [facility] ([facility]) [address] [place] [address] VIR TYPE AND SCREENon 06-28-2024 ABO_INTEP A Normal [facility] Comment on above: Performed By: #### T SC #### [facility]) [address] [place] [address] VIR RH_INTEP Positive Normal [facility] Comment on above: Performed By: #### T SC #### [facility]) [address] [place] [address] VIR URINALYSISon 06-28-2024 Bilirubin Ql (U) Negative Normal Negative [facility] Comment on above: Order Comment: Urine received without preservative. Delays in transport may affect results. Interpret with caution. A clinical correlation is recommended. Performed By: #### U A #### [facility] ([facility]) [address] [place] [address] VIR BLOOD/HGB Moderate Abnormal Negative [facility] Comment on above: Order Comment: Urine received without preservative. Delays in transport may affect results. Interpret with caution. A clinical correlation is recommended. Performed By: #### U A #### [facility] ([facility]) [address] [place] [address] VIR Color (U) Yellow Normal Yellow, Colorless [facility] Comment on above: Order Comment: Urine received without preservative. Delays in transport may affect results. Interpret with caution. A clinical correlation is recommended. Performed By: #### U A #### [facility] ([facility]) [address] [place] [address] VIR Glucose Ql (U) Negative Normal Negative, 250 mg/dL, >1000 mg/dL [facility] Comment on above: Order Comment: Urine received without preservative. Delays in transport may affect results. Interpret with caution. A clinical correlation is recommended. Performed By: #### U A #### [facility] ([facility]) [address] [place] [address] VIR Ketones Ql (U) 40 mg/dL Abnormal Negative [facility] Comment on above: Order Comment: Urine received without preservative. Delays in transport may affect results. Interpret with caution. A clinical correlation is recommended. Result Comment: This is a corrected result. Previous result was Negative on 06/28/2024 at 1521 EDT Performed By: #### U A #### [facility] ([facility]) [address] [place] [address] VIR Leukocyte esterase Test strip Ql (U) Negative Normal Negative [facility] Comment on above: Order Comment: Urine received without preservative. Delays in transport may affect results. Interpret with caution. A clinical correlation is recommended. Result Comment: This is a corrected result. Previous result was Large on 06/28/2024 at 1521 EDT Performed By: #### U A #### [facility] ([facility]) [address] [place] [address] VIR MUCOUS Present Abnormal None [facility] Comment on above: Order Comment: Urine received without preservative. Delays in transport may affect results. Interpret with caution. A clinical correlation is recommended. Performed By: #### U A #### [facility] ([facility]) [address] [place] [address] VIR Nitrite Ql (U) Negative Normal Negative [facility] Comment on above: Order Comment: Urine received without preservative. Delays in transport may affect results. Interpret with caution. A clinical correlation is recommended. Performed By: #### U A #### [facility] ([facility]) [address] [place] [address] VIR PH,URINE 6.5 Normal 5.0-8.5 [facility] Comment on above: Order Comment: Urine received without preservative. Delays in transport may affect results. Interpret with caution. A clinical correlation is recommended. Result Comment: This is a corrected result. Previous result was 7.5 on 06/28/2024 at 1521 EDT Performed By: #### U A #### [facility] ([facility]) [address] [place] [address] VIR Protein Ql (U) Negative Normal Negative [facility] Comment on above: Order Comment: Urine received without preservative. Delays in transport may affect results. Interpret with caution. A clinical correlation is recommended. Result Comment: This is a corrected result. Previous result was 100 mg/dL on 06/28/2024 at 1521 EDT Performed By: #### U A #### [facility] ([facility]) [address] [place] [address] VIR R.B.CELLS 30 High 0-5 [facility] Comment on above: Order Comment: Urine received without preservative. Delays in transport may affect results. Interpret with caution. A clinical correlation is recommended. Performed By: #### U A #### [facility] ([facility]) [address] [place] [address] VIR Specific gravity (U) [Rel density] 1.023 Normal 1.003-1.03 5 [facility] Comment on above: Order Comment: Urine received without preservative. Delays in transport may affect results. Interpret with caution. A clinical correlation is recommended. Result Comment: This is a corrected result. Previous result was 1.010 on 06/28/2024 at 1521 EDT Performed By: #### U A #### [facility] ([facility]) [address] [place] [address] VIR SQUAMOUS EPITHELIUM <^1 Normal 0-5 [facility] Comment on above: Order Comment: Urine received without preservative. Delays in transport may affect results. Interpret with caution. A clinical correlation is recommended. Result Comment: This is an appended report. These results have been appended to a previously final verified report. Performed By: #### U A #### [facility] ([facility]) [address] [place] [address] VIR TURBIDITY Clear Normal Clear [facility] Comment on above: Order Comment: Urine received without preservative. Delays in transport may affect results. Interpret with caution. A clinical correlation is recommended. Result Comment: This is a corrected result. Previous result was Cloudy on 06/28/2024 at 1521 EDT Performed By: #### U A #### [facility] ([facility]) [address] [place] [address] VIR UROBILINOGEN 0.2 eu/dL Normal 0.2 eu/dL, 1.0 eu/dL [facility] Comment on above: Order Comment: Urine received without preservative. Delays in transport may affect results. Interpret with caution. A clinical correlation is recommended. Performed By: #### U A #### [facility] ([facility]) [address] [place] [address] VIR W.B.CELLS 1 Normal 0-5 [facility] Comment on above: Order Comment: Urine received without preservative. Delays in transport may affect results. Interpret with caution. A clinical correlation is recommended. Result Comment: This is a corrected result. Previous result was >100 on 06/28/2024 at 1521 EDT Performed By: #### U A #### [facility] ([facility]) [address] [place] [address] VIR URINE CULTUREon 06-28-2024 Bacteria identified Cx Nom (U) CULTURE RESULTS NO GROWTH AT <1000 CFU/mL Normal [facility] Comment on above: Performed By: #### B EDG #### [facility] ([facility]) [address] [place] [address] VIR VAGINITIS PANEL PCRon 2024 VAGINITIS PANEL PCR BACT. VAGINOSIS DNA Not Detected Qualitative results are reported based on detection and quantitation of targeted organism markers which include: Lactobacillus spp. (L. crispatus and L. jensenii), Gardnerella vaginalis, Atopobium vaginae, Bacterial Vaginosis Associated Bacteria-2 (BVAB-2) and Megasphaera-1. CURT SPECIES DNA Not Detected Curt species not detected include: C. albicans, C. tropicalis, C. parapsilosis or C. dubliniensis. CURT KRUSEI DNA Not Detected No Curt krusei detected. CURT GLABRATA DNA Not Detected No Curt glabrata detected. TRICHOMONAS VAG DNA Not Detected No Trichomonas vaginalis detected. BD MAX Vaginal Panel has not been evaluated for patients under 18 years old. Results for these patients should be reviewed and assessed in accordance with clinical presentation to determine patient diagnosis. Normal [facility] Comment on above: Performed By: #### B EDG #### [facility] ([facility]) [address] [place] [address] VIR [facility] UA (CLEAN/CATCH) DIRECTOR OF SEARCH ENGINE MARKETING/ELINOR RO IF IND.on 06-26-2024 BILIRUBIN URINE Negative NEGATIVE [facility] BLOOD URINE Negative NEGATIVE [facility] Clarity (U) CLEAR CLEAR [facility] Color (U) LT. YELLOW YELLOW [facility] GLUCOSE URINE UA Negative NEGATIVE mg/dL [facility] Interpretation and review of laboratory results Abnormal [facility] Ketones Ql (U) Negative NEGATIVE mg/dL [facility] Leukocyte esterase Test strip Ql (U) LARGE Abnormal NEGATIVE [facility] NITRITE URINE Negative NEGATIVE [facility] pH (U) 7.5 [pH] 5.0 - 9.0 [facility] PROTEIN URINE Negative NEG/TRACE mg/dL [facility] SPECIFIC GRAVITY URINE 1.015 1.005 - 1.025 [facility] URINE MICROSCOPIC INDICATED YES [facility] UROBILINOGEN URINE 1.0 EU/dL 0.2 - 1.0 EU/dL [facility] Urinalysis macro (dipstick) panel (U)on 06-15-2024 Bilirubin, UA Negative Negative - 4(70) +++ mg/dL [facility] Blood, UA Negative Negative - 50 Isaac/mcL [facility] Clarity, UA Clear [facility] Color, UA Yellow [facility] Glucose, UA Positive Negative - 2000(110) ++++ mg/dL [facility] Comment on above: 100 Interpretation and review of laboratory results Abnormal [facility] Ketones, UA Positive Negative - 160(16) ++++ mg/dL [facility] Comment on above: trace Leukocytes, UA Trace Negative - 500+++ Shreya/mcL [facility] Nitrite, UA Negative Negative - Positive [facility] pH, UA 7 5 - 9 [facility] Protein, UA Trace Negative - 1999(20) ++++ mg/dL [facility] Spec Grav, UA 1.025 1 - 1.03 [facility] Urobilinogen, UA 1.0 0.2 - 12 mg/dL [facility] US OB FOLLOW UP TRANSABDOMIN AL APPROACHon [...] 1437 gm / 3 lbs, 2 oz (3387-4091 gm) [place] Normal: 1405 gm (8935-7524 gm) [place] Wt%: 57% for 29.1 wks [...] II, MD, PHD at 03-Jun-2024 06:46:50 PM [facility] Normal Not Available Comment on above: Order Comment: US OB TRANSVAGINAL (CERVICAL LENGTH) Estimated Date of Delivery: 08/23/24 Gestational Age as of 05/04/2024: 24w1d Urinalysis macro (dipstick) panel (U)on 06-01-2024 Bilirubin, UA Negative Negative - 4(70) +++ mg/dL [facility] Blood, UA Positive Negative - 50 Isaac/mcL [facility] Comment on above: Trace-intact Clarity, UA Clear [facility] Color, UA Yellow [facility] Glucose, UA Negative Negative - 2000(110) ++++ mg/dL [facility] Interpretation and review of laboratory results Abnormal [facility] Ketones, UA Negative Negative - 160(16) ++++ mg/dL [facility] Leukocytes, UA Negative Negative - 500+++ Shreya/mcL [facility] Nitrite, UA Negative Negative - Positive [facility] pH, UA 7 5 - 9 [facility] Protein, UA Negative Negative - 2000(20) ++++ mg/dL [facility] Spec Grav, UA 1.02 1 - 1.03 [facility] Urobilinogen, UA 0.2 0.2 - 12 mg/dL [facility] ALL CBC WITH AUTO DIFFon BASOPHILS ABSOLUTE AUTO 0 [facility] Basophils/100 WBC (Bld) 0.2 % 0.2 - 2.0 % [facility] Eosinophils/100 WBC (Bld) 0.6 % Low 0.9 - 7.0 % [facility] Erythrocyte distribution width (RBC) [Ratio] 13 % 11.0 - 15.0 % [facility] Hematocrit (Bld) [Volume fraction] 35.1 % Low 36.0 - 48.0 % [facility] Hemoglobin (Bld) [Mass/Vol] 11.8 g/dL Low 12.0 - 16.0 g/dL [facility] IMMATURE GRANULOCYTES ABS AUTO 0.04 High [facility] Immature granulocytes/100 WBC (Bld) 0.4 % 0.0 - 0.5 % [facility] Interpretation and review of laboratory results Abnormal [facility] LYMPHOCYTES ABSOLUTE AUTO 1.4 [facility] Lymphocytes/100 WBC (Bld) 15.5 % Low 20.5 - 60.0 % [facility] MCH (RBC) [Entitic mass] 28.4 pg 26.7 - 34.0 pg [facility] MCHC (RBC) [Mass/Vol] 33.6 g/dL 29.9 - 35.2 g/dL [facility] MCV (RBC) [Entitic vol] 84.6 fL 81.0 - 99.0 fL [facility] MONOCYTES ABSOLUTE AUTO 0.6 [facility] Monocytes/100 WBC (Bld) 6.3 % 1.7 - 12.0 % [facility] NEUTROPHILS ABSOLUTE AUTO 6.8 High [facility] Neutrophils/100 WBC (Bld) 77 % High 43.0 - 75.0 % [facility] Platelet mean volume (Bld) [Entitic vol] 11 fL 9.5 - 13.5 fL [facility] EO # 0.1 [facility] PLT 174 [facility] RBC 4.15 Low [facility] WBC 8.9 [facility] Urinalysis macro (dipstick) panel (U)on 05-04-2024 Bilirubin, UA Negative Negative - 4(70) +++ mg/dL [facility] Blood, UA Negative Negative - 50 Isaac/mcL [facility] Clarity, UA Clear [facility] Color, UA Yellow [facility] Glucose, UA Negative Negative - 1999(110) ++++ mg/dL [facility] Interpretation and review of laboratory results Abnormal [facility] Ketones, UA Negative Negative - 160(16) ++++ mg/dL [facility] Leukocytes, UA Trace Negative - 500+++ Shreya/mcL [facility] Nitrite, UA Negative Negative - Positive [facility] pH, UA 7 5 - 9 [facility] Protein, UA Negative Negative - 1999(20) ++++ mg/dL [facility] Spec Grav, UA 1.02 1 - 1.03 [facility] Urobilinogen, UA 0.2 0.2 - 12 mg/dL [facility] Outside Recordson 05-01-2024 Outside Records [id number]#[id number] FF [facility] UA (CLEAN/CATCH) DIRECTOR OF SEARCH ENGINE MARKETING/ELINOR RO IF IND.on 04-14-2024 BILIRUBIN URINE Negative NEGATIVE [facility] BLOOD URINE Negative NEGATIVE [facility] Clarity (U) CLEAR CLEAR [facility] Color (U) LT. YELLOW YELLOW [facility] GLUCOSE URINE UA Negative NEGATIVE mg/dL [facility] Interpretation and review of laboratory results Abnormal [facility] Ketones Ql (U) Negative NEGATIVE mg/dL [facility] Leukocyte esterase Test strip Ql (U) Negative NEGATIVE [facility] NITRITE URINE Negative NEGATIVE [facility] pH (U) 6.5 [pH] 5.0 - 9.0 [facility] PROTEIN URINE Negative NEG/TRACE mg/dL [facility] SPECIFIC GRAVITY URINE <=1.005 Abnormal 1.005 - 1.025 [facility] URINE MICROSCOPIC INDICATED NO [facility] UROBILINOGEN URINE 0.2 EU/dL 0.2 - 1.0 EU/dL [facility] IGP,APTIMA HPV,AGE GDLNon AGE GDLN ACOG TESTING Note . [facility] Comment on above: TESTS RESULT FLAG UN ITS REF RANGE LAB Clinician Provided Cytology Information Source.............Cervix No. of containers..01 ThinPrep Vial Age Algo ACOG Lalito... FLAG LEGEND: L-Low Normal,H-High Normal,LL-Alert Low,HH-Alert High <-Panic Low,>-Panic High,A-Abnormal,AA-Critical Abnormal Performed at: 01 =G [facility] [address] [place] [address] Christina Chan MD, IGP, RFX APTIMA HPV ASCU Note . [facility] Comment on above: TESTS RESULT FLAG UN ITS REF RANGE LAB DIAGNOSIS: 02 NEGATIVE FOR INTRAEPITHELIAL LESION OR MALIGNANCY. Specimen adequacy: 02 Satisfactory for evaluation. No endocervical component is identified. Performed by: 02 Meghan Kaufman, [employer] ([facility]) . 02 Note: Note 02 The Pap [...] <-Panic Low,>-Panic High,A-Abnormal,AA-Critical Abnormal Performed at: 02 WB [facility] [address] [place] [address] Christina Chan MD, Performed at: =G - [facility] [address], [place] [id number] Electoral Officer: Christina Chan MD, Phone: [phone] Performed at: [facility] [address] [place] [id number] Electoral Officer: Christina Chan MD, Phone: [phone] [facility] RECURRENT VAGINITIS (HTRX)on 04-07-2024 ATOPOBIUM VAGINAE 0 [facility] ATOPOBIUM VAGINAE Not detected [facility] BV[facility] 2,3 (BACTERIAL VAGINOSIS ASSOCIATED BACTERIA 2, 3); MOBILUNCUS SPP 0 [facility] BVAB 2,3 (BACTERIAL VAGINOSIS ASSOCIATED BACTERIA 2, 3); MOBILUNCUS SPP Not detected [facility] CURT ALBICANS, PARAPSILOSIS, TROPICALIS 0 [facility] CURT ALBICANS, PARAPSILOSIS, TROPICALIS Not detected [facility] CURT GLABRATA 0 [facility] CURT GLABRATA Not detected [facility] CURT KRUSEI 0 [facility] CURT KRUSEI Not detected [facility] CHLAMYDIA TRACHOMATIS 0 [facility] S [facility] CHLAMYDIA TRACHOMATIS Not detected N [facility] GARDNERELLA VAGINALIS 0 [facility] S [facility] GARDNERELLA VAGINALIS Not detected N S [facility] MEGASPHAERA (TYPES 1, 2) 0 [facility] MEGASPHAERA (TYPES 1, 2) Not detected [facility] MYCOPLASMA GENITALIUM 0 [facility] MYCOPLASMA GENITALIUM Not detected N [facility] NEISSERIA GONORRHOEAE 0 [facility] NEISSERIA GONORRHOEAE Not detected N [facility] TRICHOMONAS VAGINALIS 0 [facility] TRICHOMONAS VAGINALIS Not detected [facility] Urinalysis macro (dipstick) panel (U)on 04-06-2024 Bilirubin, UA Negative Negative - 4(70) +++ mg/dL [facility] Blood, UA Negative Negative - 50 Isaac/mcL [facility] Clarity, UA Clear [facility] Color, UA Yellow [facility] Glucose, UA Negative Negative - 1999(110) ++++ mg/dL [facility] Interpretation and review of laboratory results Normal [facility] Ketones, UA Negative Negative - 160(16) ++++ mg/dL [facility] Leukocytes, UA Negative Negative - 500+++ Shreya/mcL [facility] Nitrite, UA Negative Negative - Positive [facility] pH, UA 8.5 5 - 9 [facility] Protein, UA Negative Negative - 1999(20) ++++ mg/dL [facility] Spec Grav, UA 1.02 1 - 1.03 [facility] Urobilinogen, UA 1.0 0.2 - 12 mg/dL [facility] ED Note - Physicianon 2024 ED Note - Physician [id number]#1.00OTGTI FF [facility] Rad - Other Radiology Report on 03-20-2024 Rad - Other Radiology Report [id number]#1.00OTGTI FF [facility] Rad - Other Radiology Report on 03-14-2024 Rad - Other Radiology Report [id number]#1.00OTGTIF F [facility] US OB CERVICAL LENGTHon 02-16 [place] [address] Ultrasound Report Signed Patient: ROSETTE ALBA MR#: [id number] : 2000 Acct:[id number] Age/Sex: 23 / F ADM Date: 03/14/24 Loc: US Attending Dr: Camacho Hernandez D.O. Ordering Physician: Camacho Hernandez D.O. Date of Service: 03/14/24 Procedure(s): US OB cervical length Accession Number(s): [id number] cc: Camacho Hernandez D.O.; OBDULIA ONEIL [place] [address] Patient Name: ROSETTE ALBA MRN: [id number] date: 2000 Sex: F Assigned Patient Location: US Current Patient Location: US Accession/Order Number: [id number] Exam Date: 03/14/2024 09:32 Report Date: 03/14/2024 [...] Signed By: 03/14/24 1006 DD/ 1003 TD/TT: Operator/Assistant Foreman: [facility] Radiology, Radiologi MD barry - 03/14/2024 [place] [address] Ultrasound Report Signed Patient: ROSETTE ALBA MR#: [id number] : 2000 Acct:[id number] Age/Sex: 23 / F ADM Date: 03/14/24 Loc: US Attending Dr: Camacho Hernandez D.O. Ordering Physician: Camacho Hernandez D.O. Date of Service: 03/14/24 Procedure(s): US OB cervical length Accession Number(s): [id number] cc: Camacho Hernandez D.O.; OBDULIA ONEIL [place] [address] Patient Name: ROSETTE ALBA MRN: [facility]:[id number] date: 2000 Sex: F Assigned Patient Location: US Current Patient Location: US Accession/Order Number: [id number] Exam Date: 03/14/2024 09:32 Report Date: 03/14/2024 [...] Signed By: 03/14/24 1006 DD/ 1003 TD/TT: Operator/Assistant Foreman: [facility] Radiology Study observation (narrative) [facility] US OB CERVICAL LENGTHOrdered By: Radiologist Radiology on 03-14-2024 [facility] Work Phone: Urinalysis macro (dipstick) panel (U)on 03-09-2024 Bilirubin, UA Negative Negative - 4(70) +++ mg/dL [facility] Blood, UA Negative Negative - 50 Isaac/mcL [facility] Clarity, UA Clear [facility] Color, UA Yellow [facility] Glucose, UA Negative Negative - 2000(110) ++++ mg/dL [facility] Interpretation and review of laboratory results Normal [facility] Ketones, UA Negative Negative - 160(16) ++++ mg/dL [facility] Leukocytes, UA Negative Negative - 500+++ Shreya/mcL [facility] Nitrite, UA Negative Negative - Positive [facility] pH, UA 7.5 5 - 9 [facility] Protein, UA Negative Negative - 2000(20) ++++ mg/dL [facility] Spec Grav, UA 1.02 1 - 1.03 [facility] Urobilinogen, UA 1.0 0.2 - 12 mg/dL [facility] Free Cell DNAon 2024 [facility] BOX TESTon 02-25-2024 BOX TEST SENT OUT [facility] BOX1 [facility] BOX2 02/25/2024 [facility] BOX [facility] HCG ( test) Ql (U)o n 02-03-2024 Interpretation and review of laboratory results Abnormal [facility] Preg Test, Ur Positive Negative [facility] Rad - Ultrasound Reporton Rad - Ultrasound Report [id number]#1.00OTGTIF F Normal [facility] Urinalysis macro (dipstick) panel (U)on 02-03-2024 Bilirubin, UA Negative Negative - 4(70) +++ mg/dL [facility] Blood, UA Negative Negative - 50 Isaac/mcL [facility] Clarity, UA Clear [facility] Color, UA Yellow [facility] Glucose, UA Negative Negative - 1999(110) ++++ mg/dL [facility] Interpretation and review of laboratory results Abnormal [facility] Ketones, UA Negative Negative - 160(16) ++++ mg/dL [facility] Leukocytes, UA Negative Negative - 500+++ Shreya/mcL [facility] Nitrite, UA Negative Negative - Positive [facility] pH, UA 5.5 5 - 9 [facility] Protein, UA Positive Negative - 2000(20) ++++ mg/dL [facility] Comment on above: 100 Spec Grav, UA 1.03 1 - 1.03 [facility] Urobilinogen, UA 0.2 0.2 - 12 mg/dL [facility] Rad - Other Radiology Report on 01-07-2024 Rad - Other Radiology Report [id number] [facility] Outside Recordson 12-14-2023 Outside Records [id number]#[id number] F [facility] Outside Records [id number]#[id number] F [facility] US [facility] 10-07-2023 [facility] [place] [address] Ultrasound Report Signed Patient: Rosette Alba MR#: [id number] : 2000 Acct:[id number] Age/Sex: 23 / F ADM Date: 10/07/23 Loc: Room: Type: [facility] Attending Dr: Nataly BOND Ordering Provider: [...] Kirkland Jr., D.O.10/07/2023 11:25 AM Dictation Location: [place] [address] Tech: Marie Max Transcribed By: ANDREY 10/07/23 1125 Dictated By: Richard Kirkland Jr, DO 10/07/23 1123 Signed By: 10/07/23 1125 Normal [facility] US thyroidon 10-07-2023 US thyroid [facility] [place] [address] Ultrasound Report Signed Patient: Rosette Alba MR#: [id number] : 2000 Acct:[id number] Age/Sex: 23 / F ADM Date: 10/07/23 Loc: Room: Type: [facility] Attending Dr: Nataly BOND Ordering Provider: [...] Kirkland Jr., D.O.10/07/2023 11:26 AM Dictation Location: [place] [address] Tech: Marie Max Transcribed By: ANDREY 10/07/23 1126 Dictated By: Richard Kirkland Jr, DO 10/07/23 1125 Signed By: 10/07/23 1126 Normal [facility] XR KUBon 10-07-2023 XR KUB [facility] [place] [address] XRay Report Signed Patient: Rosette Alba MR#: [id number] : 2000 Acct:[id number] Age/Sex: 23 / F ADM Date: 10/07/23 Loc: Room: Type: [facility] Attending Dr: Nataly BOND Copies to: [...] Kirkland Jr., D.O.10/07/2023 8:50 AM Dictation Location: [place] [address] Transcribed By: [facility] 10/07/23 0850 Dictated By: Richard Kirkland Jr, DO 10/07/23 0849 Signed By: 10/07/23 0850 Normal [facility] Bacteria [Presence] in Urine by AutomatedOrdered By: Carmelo Vinson on 10-04-2023 Bacteria Auto Ql (U) None seen [HPF] None Seen [facility] Bilirubin Test strip Ql (U)O rdered By: Carmelo Vinson on 10-04-2023 Bilirubin Ql (U) Negative Negative [facility] Color of Urine by AutoOrdere d By: Carmelo Vinson on 10-04-2023 Color (U) Yellow Normal Yellow [facility] Comment on above: Order Comment: Name Collection Type:: Clean-Voided Midstream Performed By: #### U HCG, ADDONUAPLUS ####[place] [id number] [facility] Dipstick and Microscopicon 0 10-04-2023 Bacteria,Urine None Seen Normal None Seen [facility] Comment on above: Order Comment: Name Collection Type:: Clean-Voided Midstream Performed By: #### U HCG, ADDONUAPLUS ####[place] [id number] [facility] Bilirubin,Urine Negative Normal Negative [facility] Comment on above: Order Comment: Name Collection Type:: Clean-Voided Midstream Performed By: #### U HCG, ADDONUAPLUS ####[address] Glucose Ql (U) Normal Normal Normal [facility] Comment on above: Order Comment: Name Collection Type:: Clean-Voided Midstream Performed By: #### U HCG, ADDONUAPLUS ####[address] Hyaline Casts,Urine 0-8 Normal 0-8 [facility] Comment on above: Order Comment: Name Collection Type:: Clean-Voided Midstream Performed By: #### U HCG, ADDONUAPLUS ####[address] Mucus,Urine 4+ Critically abnormal [facility] Comment on above: Order Comment: Name Collection Type:: Clean-Voided Midstream Performed By: #### U HCG, ADDONUAPLUS ####[place] [id number] [facility] Nitrite,Urine Negative Normal Negative [facility] Comment on above: Order Comment: Name Collection Type:: Clean-Voided Midstream Performed By: #### U HCG, ADDONUAPLUS ####[address] Occult Blood,Urine Negative Normal Negative [facility] Comment on above: Order Comment: Name Collection Type:: Clean-Voided Midstream Performed By: #### U HCG, ADDONUAPLUS ####[address] RBC,Urine 1-2 Normal 0-4 [facility] Comment on above: Order Comment: Name Collection Type:: Clean-Voided Midstream Performed By: #### U HCG, ADDONUAPLUS ####[address] Specificy [place],Urine 1.039 High 1.001-1.03 0 [facility] Comment on above: Order Comment: Name Collection Type:: Clean-Voided Midstream Performed By: #### U HCG, ADDONUAPLUS ####[address] Squamous Epithelial Cell,Urine 5-9 High 0-2 [facility] Comment on above: Order Comment: Name Collection Type:: Clean-Voided Midstream Performed By: #### U HCG, ADDONUAPLUS ####[address] Urobilinogen,Urine 2 mg/dL High Normal [facility] Comment on above: Order Comment: Name Collection Type:: Clean-Voided Midstream Performed By: #### U HCG, ADDONUAPLUS ####[address] WBC,Urine 3-4 Normal 0-4 [facility] Comment on above: Order Comment: Name Collection Type:: Clean-Voided Midstream Performed By: #### U HCG, ADDONUAPLUS ####[address] Epithelial cells.squamous [# /area] in Urine sediment by Automated countOrdered By: Carmelo Vinson on 10-04-2023 Epithelial cells.squamous Auto (Urine sed) [#/Area] 5-9 [HPF] High 0-2 [facility] Erythrocytes [#/area] in Uri ne sediment by Automated countOrdered By: Carmelo Vinson on 10-04-2023 RBC Auto (Urine sed) [#/Area] 1-2 [HPF] 0-4 [facility] Glucose [Mass/volume] in Uri ne by Test stripOrdered By: Carmelo Vinson on 10-04-2023 Glucose Test strip (U) [Mass/Vol] Normal mg/dL Normal [facility] HCG ( test) IA.rapi d Ql (U)Ordered By: PROVIDER KUSUM on 10-04-2023 HCG ( test) Ql (U) Negative [facility] HCG,Urineon 10-04-2023 Beta HCG ( test) Ql (U) Negative Normal [facility] Comment on above: Order Comment: Name Collection Type:: Clean-Voided Midstream Result Comment: PERF ORMED BY: [facility] [address] [place] [id number] PATHOLOGIST ASSESSMENT DIRECTOR ALLA OROZCO M.D. Performed By: #### U HCG, ADDONUAPLUS ####[place] [id number] [place] [id number] [facility] Hemoglobin Test strip Ql (U) Ordered By: Carmelo Vinson on 10-04-2023 Hemoglobin Ql (U) Negative Negative [facility] Hyaline casts [#/area] in Ur ine sediment by Automated countOrdered By: Carmelo Vinson on 10-04-2023 Hyaline casts Auto (Urine sed) [#/Area] 0-8 [LPF] 0-8 [facility] Ketones [Presence] in Urine by Test stripOrdered By: Carmelo Vinson on 10-04-2023 Ketones Ql (U) Trace High Negative [facility] Comment on above: Order Comment: Name Collection Type:: Clean-Voided Midstream Performed By: #### U HCG, ADDONUAPLUS ####[place] [id number] [place] [id number] [facility] Leukocyte esterase [Presence ] in Urine by Test stripOrdered By: Carmelo Vinson on 10-04-2023 Leukocyte esterase Test strip Ql (U) Negative Normal Negative [facility] Comment on above: Order Comment: Name Collection Type:: Clean-Voided Midstream Performed By: #### U HCG, ADDONUAPLUS ####[place] [id number] [place] Leukocytes [#/area] in Urine sediment by Automated countOrdered By: Carmelo Vinson on 10-04-2023 WBC Auto (Urine sed) [#/Area] 3-4 [HPF] 0-4 [facility] Mucus [Presence] in Urine by AutomatedOrdered By: Carmelo Vinson on 10-04-2023 Mucus Auto Ql (U) 4+ [LPF] Abnormal [facility] Nitrite Test strip Ql (U)Ord ered By: Carmelo Vinson on 10-04-2023 Nitrite Ql (U) Negative Negative [facility] Protein [Mass/volume] in Uri ne by Test stripOrdered By: Carmelo Vinson on 10-04-2023 Protein (U) [Mass/Vol] 30 mg/dL High Negative [facility] Comment on above: Order Comment: Name Collection Type:: Clean-Voided Midstream Performed By: #### U HCG, ADDONUAPLUS ####[address] Specific gravity Test strip (U) [Rel density]Ordered By: Carmelo Vinson on 10-04-2023 Specific gravity (U) [Rel density] 1.039 High 1.001-1.03 0 [facility] Urine appearanceOrdered By: Carmelo Vinson on 10-04-2023 Appearance (U) Clear Normal Clear [facility] Comment on above: Order Comment: Name Collection Type:: Clean-Voided Midstream Performed By: #### U HCG, ADDONUAPLUS ####[address] Urobilinogen Test strip (U) [Mass/Vol]Ordered By: Carmelo Vinson on 10-04-2023 Urobilinogen (U) [Mass/Vol] 2 mg/dL High Normal [facility] pH of Urine by Test stripOrd ered By: Carmelo Vinson on 10-04-2023 pH (U) 6.0 [pH] Normal 5.0-9.0 [facility] Comment on above: Order Comment: Name Collection Type:: Clean-Voided Midstream Performed By: #### U HCG, ADDONUAPLUS ####[address] Alanine aminotransferase [En zymatic activity/volume] in Serum or PlasmaOrdered By: Nataly Toure on 09-30-2023 ALT [Catalytic activity/Vol] 14 U/L Normal 7-52 [facility] Comment on above: Order Comment: Reaso n for Exam Adenopathy Reason for Exam Iron deficiency Reason for Exam Hypothyroidism, unspecified type Performed By: #### C BC, CMP, DDIMER, TSH3 wRFLX, FE and TIBC #### [facility] [address] [place] [address] [place] Albumin [Mass/volume] in Ser um or Plasma by Bromocresol green (BCG) dye binding methoOrdered By: Nataly Toure on 09-30-2023 Albumin BCG dye [Mass/Vol] 4.2 g/dL 3.5-5.7 [facility] Alkaline phosphatase [Enzyma tic activity/volume] in Serum or PlasmaOrdered By: Nataly Toure on 09-30-2023 ALP [Catalytic activity/Vol] 80 U/L Normal 34-104 [facility] Comment on above: Order Comment: Reaso n for Exam Adenopathy Reason for Exam Iron deficiency Reason for Exam Hypothyroidism, unspecified type Performed By: #### C BC, CMP, DDIMER, TSH3 wRFLX, FE and TIBC #### [facility] [address] [place] [address] [place] Aspartate aminotransferase [ Enzymatic activity/volume] in Serum or PlasmaOrdered By: Nataly Toure on 09-30-2023 AST [Catalytic activity/Vol] 10 U/L Low 13-39 [facility] Comment on above: Order Comment: Reaso n for Exam Adenopathy Reason for Exam Iron deficiency Reason for Exam Hypothyroidism, unspecified type Performed By: #### C BC, CMP, DDIMER, TSH3 wRFLX, FE and TIBC #### [facility] [address] [place] [address] [place] Automated basophil %Ordered By: Nataly Toure on 09-30-2023 Basophils/100 WBC (Bld) 0.5 % Normal . [facility] Comment on above: Order Comment: Reaso n for Exam Adenopathy Performed By: #### C BC, CMP, DDIMER, TSH3 wRFLX, FE and TIBC #### [facility] [address] [place] [address] Automated basophil countOrde red By: Nataly Toure on 09-30-2023 Basophils (Bld) [#/Vol] 0.0 10*3/uL Normal 0.0-0.2 [facility] Comment on above: Order Comment: Reaso n for Exam Adenopathy Result Comment: PERF ORMED BY: [place] [address] PATHOLOGIST ASSESSMENT DIRECTOR ALLA OROZCO M.D. Performed By: #### C BC, CMP, DDIMER, TSH3 wRFLX, FE and TIBC #### [address] Automated blood monocyte cou ntOrdered By: Nataly Toure on 09-30-2023 Monocytes (Bld) [#/Vol] 0.7 10*3/uL Normal 0.0-0.8 [facility] Comment on above: Order Comment: Reaso n for Exam Adenopathy Performed By: #### C BC, CMP, DDIMER, TSH3 wRFLX, FE and TIBC #### [address] Automated eosinophil %Ordere d By: Nataly Toure on 09-30-2023 Eosinophils/100 WBC (Bld) 0.4 % Normal . [facility] Comment on above: Order Comment: Reaso n for Exam Adenopathy Performed By: #### C BC, CMP, DDIMER, TSH3 wRFLX, FE and TIBC #### [facility] [address] [place] [address] Automated eosinophil countOr dered By: Nataly Toure on 09-30-2023 Eosinophils (Bld) [#/Vol] 0.0 10*3/uL Normal 0.0-0.45 [facility] Comment on above: Order Comment: Reaso n for Exam Adenopathy Performed By: #### C BC, CMP, DDIMER, TSH3 wRFLX, FE and TIBC #### [address] [place] [address] [place] Automated monocyte %Ordered By: Nataly Toure on 09-30-2023 Monocytes/100 WBC (Bld) 8.0 % Normal . [facility] Comment on above: Order Comment: Reaso n for Exam Adenopathy Performed By: #### C BC, CMP, DDIMER, TSH3 wRFLX, FE and TIBC #### [facility] [address] Automated neutrophil %Ordere d By: Nataly Toure on 09-30-2023 Neutrophils/100 WBC (Bld) 58.7 % Normal . [facility] Comment on above: Order Comment: Reaso n for Exam Adenopathy Performed By: #### C BC, CMP, DDIMER, TSH3 wRFLX, FE and TIBC #### [address] Bilirubin.total [Mass/volume ] in Serum or PlasmaOrdered By: Nataly Toure on 09-30-2023 Bilirubin [Mass/Vol] 0.3 mg/dL Normal 0.3-1.[address] [facility] Comment on above: Order Comment: Reaso n for Exam Adenopathy Reason for Exam Iron deficiency Reason for Exam Hypothyroidism, unspecified type Performed By: #### C BC, CMP, DDIMER, TSH3 wRFLX, FE and TIBC #### [address] Calcium [Mass/volume] in Ser um or PlasmaOrdered By: Nataly Toure on 09-30-2023 Calcium [Mass/Vol] 9.3 mg/dL Normal 8.6-10.3 [facility] Comment on above: Order Comment: Reaso n for Exam Adenopathy Reason for Exam Iron deficiency Reason for Exam Hypothyroidism, unspecified type Performed By: #### C BC, CMP, DDIMER, TSH3 wRFLX, FE and TIBC #### [facility] [address] [place] [address] Carbon dioxide, total [Moles /volume] in Serum or PlasmaOrdered By: Nataly Toure on 08-15-2024 CO2 [Moles/Vol] 29.9 mmol/L Normal 21.0-31.0 [facility] Comment on above: Order Comment: Reaso n for Exam Adenopathy Reason for Exam Iron deficiency Reason for Exam Hypothyroidism, unspecified type Performed By: #### C BC, CMP, DDIMER, TSH3 wRFLX, FE and TIBC #### [facility] [address] Chloride [Moles/volume] in S rosa or PlasmaOrdered By: Nataly Toure on 09-30-2023 Chloride [Moles/Vol] 103 mmol/L Normal 98-[address] [facility] Comment on above: Order Comment: Reaso n for Exam Adenopathy Reason for Exam Iron deficiency Reason for Exam Hypothyroidism, unspecified type Performed By: #### C BC, CMP, DDIMER, TSH3 wRFLX, FE and TIBC #### [facility] [address] Complete Blood Count Auto Di ffon 09-30-2023 Mean Corpuscular HGB Conc 33.2 g/dL Normal 32.0-35.0 [facility] Comment on above: Order Comment: Reaso n for Exam Adenopathy Performed By: #### C BC, CMP, DDIMER, TSH3 wRFLX, FE and TIBC #### [facility] [address] NRBC% 0.1 /100{WBC} Normal 0-0.5 [facility] Comment on above: Order Comment: Reaso n for Exam Adenopathy Performed By: #### C BC, CMP, DDIMER, TSH3 wRFLX, FE and TIBC #### [facility] [address] Comprehensive Metabolic Pane marco 09-30-2023 Albumin [Mass/Vol] 4.2 g/dL Normal 3.5-5.7 [facility] Comment on above: Order Comment: Reaso n for Exam Adenopathy Reason for Exam Iron deficiency Reason for Exam Hypothyroidism, unspecified type Performed By: #### C BC, CMP, DDIMER, TSH3 wRFLX, FE and TIBC #### [facility] [address] [place] [address] [facility] GFR/1.73 sq M.predicted MDRD (S/P/Bld) [Vol rate/Area] mL/min/{1.73_m2} Normal [facility] Comment on above: Order Comment: Reaso n for Exam Adenopathy Reason for Exam Iron deficiency Reason for Exam Hypothyroidism, unspecified type Performed By: #### C BC, CMP, DDIMER, TSH3 wRFLX, FE and TIBC #### [facility] [address] [place] [address] [facility] Creatinine [Mass/volume] in Serum or PlasmaOrdered By: Nataly Toure on 09-30-2023 Creatinine [Mass/Vol] 0.73 mg/dL Normal 0.60-1.20 [facility] Comment on above: Order Comment: Reaso n for Exam Adenopathy Reason for Exam Iron deficiency Reason for Exam Hypothyroidism, unspecified type Performed By: #### C BC, CMP, DDIMER, TSH3 wRFLX, FE and TIBC #### [facility] [address] [place] [address] [facility] D-Dimer High Sensitivityon 0 09-30-2023 D-Dimer High Sensitivity < 200 Normal 0-243 [facility] Comment on above: [...] coagulation studies. Please contact the laboratory at [phone] for redraw instructions. PERFORMED BY: [place] [id number] PATHOLOGIST ASSESSMENT DIRECTOR ALLA OROZCO M.D. Performed By: #### C BC, CMP, DDIMER, TSH3 wRFLX, FE and TIBC #### [facility] [address] Erythrocyte distribution wid th [Ratio] by Automated countOrdered By: Nataly Toure on 09-30-2023 Erythrocyte distribution width (RBC) [Ratio] 15.0 % Normal 11.9-15.3 [facility] Comment on above: Order Comment: Reaso n for Exam Adenopathy Performed By: #### C BC, CMP, DDIMER, TSH3 wRFLX, FE and TIBC #### [facility] [address] Erythrocytes [#/volume] in B lood by Automated countOrdered By: Nataly Toure on 09-30-2023 RBC (Bld) [#/Vol] 4.79 10*6/uL Normal 3.60-5.00 [facility] Comment on above: Order Comment: Reaso n for Exam Adenopathy Performed By: #### C BC, CMP, DDIMER, TSH3 wRFLX, FE and TIBC #### [facility] [address] [place] [address] Fibrin D-dimer [Presence] in Platelet poor plasma by Latex agglutinationOrdered By: Nataly Toure on 09-30-2023 Fibrin D-dimer LA Ql (PPP) < 200 ng/mL 0-243 [facility] Comment on above: The reference range [...] coagulation studies. Please contact the laboratory at [phone] for redraw instructions. Glucose [Mass/volume] in Ser um or PlasmaOrdered By: Nataly Toure on 09-30-2023 Glucose [Mass/Vol] 75 mg/dL Normal 70-100 [facility] Comment on above: ADA recommended refe rence rangeRandom Glucose Reference Range is dependent on time and content of last meal. Glucose of more than 200 mg/dL in a nonstressed, ambulatory subject supports the diagnosis of Diabetes Mellitus. Order Comment: Reaso n for Exam Adenopathy Reason for Exam Iron deficiency Reason for Exam Hypothyroidism, unspecified type Result Comment: [place] om Glucose Reference Range is dependent on time and content of last meal. Glucose of more than 200 mg/dL in a nonstressed, ambulatory subject supports the diagnosis of Diabetes Mellitus. ADA recommended reference range Performed By: #### C BC, CMP, DDIMER, TSH3 wRFLX, FE and TIBC #### [facility] [address] [place] [address] Hematocrit [Volume Fraction] of Blood by Automated countOrdered By: Nataly Toure on 09-30-2023 Hematocrit (Bld) [Volume fraction] 37.9 % Normal 34.0-46.4 [facility] Comment on above: Order Comment: Reaso n for Exam Adenopathy Performed By: #### C BC, CMP, DDIMER, TSH3 wRFLX, FE and TIBC #### [facility] [address] [place], [place] [id number] [place] Hemoglobin [Mass/volume] in BloodOrdered By: Nataly Toure on 09-30-2023 Hemoglobin (Bld) [Mass/Vol] 12.6 g/dL Normal 11.8-15.4 [facility] Comment on above: Order Comment: Reaso n for Exam Adenopathy Performed By: #### C BC, CMP, DDIMER, TSH3 wRFLX, FE and TIBC #### [facility] [address] [place], [place] [id number] [place] Iron [Mass/volume] in Serum or PlasmaOrdered By: Nataly Toure on 09-30-2023 Iron [Mass/Vol] 43 ug/dL Low 50-212 [facility] Comment on above: Order Comment: Reaso n for Exam Adenopathy Reason for Exam Iron deficiency Reason for Exam Hypothyroidism, unspecified type Performed By: #### C BC, CMP, DDIMER, TSH3 wRFLX, FE and TIBC #### [facility] [address] Iron and TIBC Profileon 09-15 % Iron Saturation 10.6 % Low 20-50 [facility] Comment on above: Order Comment: Reaso n for Exam Adenopathy Reason for Exam Iron deficiency Reason for Exam Hypothyroidism, unspecified type Performed By: #### C BC, CMP, DDIMER, TSH3 wRFLX, FE and TIBC #### [facility] [address] [place] [id number] [facility] Total Iron Binding Capacity 406 ug/dL Normal 255-450 [facility] Comment on above: Order Comment: Reaso n for Exam Adenopathy Reason for Exam Iron deficiency Reason for Exam Hypothyroidism, unspecified type Performed By: #### C BC, CMP, DDIMER, TSH3 wRFLX, FE and TIBC #### [facility] [address] Iron binding capacity [Mass/ volume] in Serum or PlasmaOrdered By: Nataly Toure on 09-30-2023 Iron binding capacity [Mass/Vol] 406 ug/dL 255-450 [facility] Iron saturation [Mass Fracti on] in Serum or PlasmaOrdered By: Nataly Toure on 09-30-2023 Iron saturation [Mass fraction] 10.6 % Low 20-50 [facility] Leukocytes [#/volume] correc kee for nucleated erythrocytes in Blood by Automated counOrdered By: Nataly Toure on 09-30-2023 WBC corrected for nucl RBC Auto (Bld) [#/Vol] 8.2 10*3/uL 3.8-11.6 [facility] Leukocytes [#/volume] in Blo od by Automated countOrdered By: Nataly Toure on 09-30-2023 WBC (Bld) [#/Vol] 8.2 10*3/uL Normal 3.8-11.6 [facility] Comment on above: Order Comment: Reaso n for Exam Adenopathy Performed By: #### C BC, CMP, DDIMER, TSH3 wRFLX, FE and TIBC #### [facility] [address] Lymphocytes [#/volume] in Bl ood by Automated countOrdered By: Nataly Toure on 09-30-2023 Lymphocytes (Bld) [#/Vol] 2.7 10*3/uL Normal 1.00-4.8 [facility] Comment on above: Order Comment: Reaso n for Exam Adenopathy Performed By: #### C BC, CMP, DDIMER, TSH3 wRFLX, FE and TIBC #### [facility] [address] [place] [address] Lymphocytes/100 leukocytes i n Blood by Automated countOrdered By: Nataly Toure on 09-30-2023 Lymphocytes/100 WBC (Bld) 32.4 % Normal . [facility] Comment on above: Order Comment: Reaso n for Exam Adenopathy Performed By: #### C BC, CMP, DDIMER, TSH3 wRFLX, FE and TIBC #### [facility] [address] MCH [Entitic mass] by Automa kee countOrdered By: Nataly Toure on 09-30-2023 MCH (RBC) [Entitic mass] 26.3 pg Normal 24.7-34.3 [facility] Comment on above: Order Comment: Reaso n for Exam Adenopathy Performed By: #### C BC, CMP, DDIMER, TSH3 wRFLX, FE and TIBC #### [facility] [address] MCHC Auto (RBC) [Mass/Vol]Or dered By: Nataly Toure on 09-30-2023 MCHC (RBC) [Mass/Vol] 33.2 g/dL 32.0-35.0 [facility] MCV [Entitic volume] by Auto mated countOrdered By: Nataly Toure on 09-30-2023 MCV (RBC) [Entitic vol] 79.1 fL Low 80-100 [facility] Comment on above: Order Comment: Reaso n for Exam Adenopathy Performed By: #### C BC, CMP, DDIMER, TSH3 wRFLX, FE and TIBC #### [facility] [address] Neutrophils [#/volume] in Bl ood by Automated countOrdered By: Nataly Toure on 09-30-2023 Neutrophils (Bld) [#/Vol] 4.8 10*3/uL Normal 1.8-7.7 [facility] Comment on above: Order Comment: Reaso n for Exam Adenopathy Performed By: #### C BC, CMP, DDIMER, TSH3 wRFLX, FE and TIBC #### [facility] [address] No Panel InformationOrdered By: Nataly Toure on 09-30-2023 Estimated GFR (CKD-EPI) > 60.0 mL/Min [facility] Creatinine Clearance (Chem N/A [facility] Nucleated erythrocytes [Pres ence] in Blood by Automated countOrdered By: Nataly Toure on 09-30-2023 Nucleated RBC Auto Ql (Bld) 0.1 /100{WBC} 0-0.5 [facility] Platelet mean volume [Entiti c volume] in Blood by Automated countOrdered By: Nataly Toure on 09-30-2023 Platelet mean volume (Bld) [Entitic vol] 9.2 fL Normal 6.3-10.7 [facility] Comment on above: Order Comment: Reaso n for Exam Adenopathy Performed By: #### C BC, CMP, DDIMER, TSH3 wRFLX, FE and TIBC #### [facility] [address] [place] [address] [place] Platelets [#/volume] in Bloo d by Automated countOrdered By: Nataly Toure on 09-30-2023 Platelets (Bld) [#/Vol] 246 10*3/uL Normal 150-450 [facility] Comment on above: Order Comment: Reaso n for Exam Adenopathy Performed By: #### C BC, CMP, DDIMER, TSH3 wRFLX, FE and TIBC #### [facility] [address] [place] [id number] [place] Potassium [Moles/volume] in Serum or PlasmaOrdered By: Nataly Toure on 09-30-2023 Potassium [Moles/Vol] 3.9 mmol/L Normal 3.5-5.1 [facility] Comment on above: Order Comment: Reaso n for Exam Adenopathy Reason for Exam Iron deficiency Reason for Exam Hypothyroidism, unspecified type Performed By: #### C BC, CMP, DDIMER, TSH3 wRFLX, FE and TIBC #### [facility] [address] Protein [Mass/volume] in Ser um or PlasmaOrdered By: Nataly Toure on 09-30-2023 Protein [Mass/Vol] 7.0 g/dL Normal 6.4-8.9 [facility] Comment on above: Order Comment: Reaso n for Exam Adenopathy Reason for Exam Iron deficiency Reason for Exam Hypothyroidism, unspecified type Performed By: #### C BC, CMP, DDIMER, TSH3 wRFLX, FE and TIBC #### [facility] [address] Serum globulin measurement b y calculation (mass/volume)Ordered By: Nataly Toure on 09-30-2023 Globulin (S) [Mass/Vol] 2.8 g/dL [facility] Comment on above: Order Comment: Reaso n for Exam Adenopathy Reason for Exam Iron deficiency Reason for Exam Hypothyroidism, unspecified type Performed By: #### C BC, CMP, DDIMER, TSH3 wRFLX, FE and TIBC #### [facility] [address] [place] [id number] [place] Serum or plasma albumin/glob ulin mass ratioOrdered By: Nataly Toure on 09-30-2023 Albumin/Globulin [Mass ratio] 1.5 {ratio} [facility] Comment on above: Order Comment: Reaso n for Exam Adenopathy Reason for Exam Iron deficiency Reason for Exam Hypothyroidism, unspecified type Performed By: #### C BC, CMP, DDIMER, TSH3 wRFLX, FE and TIBC #### [facility] [address] Serum or plasma anion gap de terminationOrdered By: Nataly Toure on 09-30-2023 Anion gap [Moles/Vol] 11.0 mmol/L Normal 6.0-15.0 [facility] Comment on above: Order Comment: Reaso n for Exam Adenopathy Reason for Exam Iron deficiency Reason for Exam Hypothyroidism, unspecified type Performed By: #### C BC, CMP, DDIMER, TSH3 wRFLX, FE and TIBC #### [facility] [address] Sodium [Moles/volume] in Ser um or PlasmaOrdered By: Nataly Toure on 09-30-2023 Sodium [Moles/Vol] 140 mmol/L Normal 136-145 [facility] Comment on above: Order Comment: Reaso n for Exam Adenopathy Reason for Exam Iron deficiency Reason for Exam Hypothyroidism, unspecified type Performed By: #### C BC, CMP, DDIMER, TSH3 wRFLX, FE and TIBC #### [facility] [address] [place] [address] Thyroid Stim Hormone w/Rflxo n 09-30-2023 Thyroid Stim Hormone w/Rflx 4.99 u[iU]/mL Normal 0.45-5.33 [facility] Comment on above: Order Comment: Reaso n for Exam Adenopathy Reason for Exam Iron deficiency Reason for Exam Hypothyroidism, unspecified type Result Comment: PERF ORMED BY: [place] [address] PATHOLOGIST ASSESSMENT DIRECTOR ALLA OROZCO M.D. Performed By: #### C BC, CMP, DDIMER, TSH3 wRFLX, FE and TIBC #### [facility] [address] Thyrotropin [Units/volume] i n Serum or PlasmaOrdered By: Nataly Toure on 09-30-2023 TSH Qn 4.99 m[IU]/L 0.45-5.33 [facility] Transferrin [Mass/volume] in Serum or PlasmaOrdered By: Nataly Toure on 09-30-2023 Transferrin [Mass/Vol] 290 mg/dL Normal 203-362 [facility] Comment on above: Order Comment: Reaso n for Exam Adenopathy Reason for Exam Iron deficiency Reason for Exam Hypothyroidism, unspecified type Performed By: #### C BC, CMP, DDIMER, TSH3 wRFLX, FE and TIBC #### [facility] [address] Urea nitrogen [Mass/volume] in Serum or PlasmaOrdered By: Nataly Toure on 09-30-2023 Urea nitrogen [Mass/Vol] 23 mg/dL Normal 7-25 [facility] Comment on above: Order Comment: Reaso n for Exam Adenopathy Reason for Exam Iron deficiency Reason for Exam Hypothyroidism, unspecified type Performed By: #### C BC, CMP, DDIMER, TSH3 wRFLX, FE and TIBC #### [facility] [address] [place] [address] CT lumbar spine wo conon CT lumbar spine wo con [facility] Main [place] [address] [place] [address] CT Scan Report Signed Patient: Rosette Alba MR#: [id number] : 2000 Acct:[id number] Age/Sex: 23 / F ADM Date: 09/26/23 Loc: ER Room: Type: [facility] ER Attending Dr: Copies to: Devon Leon PA-C Ordering Provider: eDvon Leon PA-C Date of Service: 09/26/23 CT/CT [...] Deborah Vazquez M.D.09/27/2023 8:13 AM Dictation Location: [place] [address] Transcribed By: [facility] 09/27/23812 Dictated By: Deborah Vazquez MD 09/27/23803 Signed By: 09/27/23812 Normal [facility] Bacteria [Presence] in Urine by AutomatedOrdered By: Devon Leon on 09-26-2023 Bacteria Auto Ql (U) Rare [HPF] None Seen [facility] Bilirubin Test strip Ql (U)O rdered By: Devon Leon on 09-26-2023 Bilirubin Ql (U) Negative Negative [facility] Color of Urine by AutoOrdere d By: Devon Leon on 09-26-2023 Color (U) Light-yellow Normal Yellow [facility] Comment on above: Order Comment: Name Collection Type:: Clean-Voided Midstream Performed By: #### C UU, ADDONUAPLUS #### [address] Dipstick and Microscopicon 0 09-26-2023 Bacteria,Urine Rare Normal None Seen [facility] Comment on above: Order Comment: Name Collection Type:: Clean-Voided Midstream Performed By: #### C UU, ADDONUAPLUS #### [place] [address] [place] Bilirubin,Urine Negative Normal Negative [facility] Comment on above: Order Comment: Name Collection Type:: Clean-Voided Midstream Performed By: #### C UU, ADDONUAPLUS #### [address] Glucose Ql (U) Normal Normal Normal [facility] Comment on above: Order Comment: Name Collection Type:: Clean-Voided Midstream Performed By: #### C UU, ADDONUAPLUS #### [place] [address] [place] Hyaline Casts,Urine None Normal 0-8 [facility] Comment on above: Order Comment: Name Collection Type:: Clean-Voided Midstream Performed By: #### C UU, ADDONUAPLUS #### [place] [address] [place] Mucus,Urine 2+ Critically abnormal [facility] Comment on above: Order Comment: Name Collection Type:: Clean-Voided Midstream Performed By: #### C UU, ADDONUAPLUS #### [place] [address] [place] Nitrite,Urine Negative Normal Negative [facility] Comment on above: Order Comment: Name Collection Type:: Clean-Voided Midstream Performed By: #### C UU, ADDONUAPLUS #### [place] [address] [place] Occult Blood,Urine 2+ High Negative [facility] Comment on above: Order Comment: Name Collection Type:: Clean-Voided Midstream Result Comment: PERF ORMED BY: [place] [address] PATHOLOGIST ASSESSMENT DIRECTOR ALLA OROZCO M.D. Performed By: #### C UU, ADDONUAPLUS #### [place] [address] [place] Protein,Urine Trace High Negative [facility] Comment on above: Order Comment: Name Collection Type:: Clean-Voided Midstream Performed By: #### C UU, ADDONUAPLUS #### [address] RBC,Urine 3-4 Normal 0-4 [facility] Comment on above: Order Comment: Name Collection Type:: Clean-Voided Midstream Performed By: #### C UU, ADDONUAPLUS #### [address] Specificy [place],Urine 1.030 Normal 1.001-1.03 0 [facility] Comment on above: Order Comment: Name Collection Type:: Clean-Voided Midstream Performed By: #### C UU, ADDONUAPLUS #### [address] Sperm,Urine 5-9 High 0-2 [facility] Comment on above: Order Comment: Name Collection Type:: Clean-Voided Midstream Result Comment: PERF ORMED BY: [place] [address] PATHOLOGIST ASSESSMENT DIRECTOR ALLA OROZCO M.D. Performed By: #### C UU, ADDONUAPLUS #### [address] Squamous Epithelial Cell,Urine 5-9 High 0-2 [facility] Comment on above: Order Comment: Name Collection Type:: Clean-Voided Midstream Performed By: #### C UU, ADDONUAPLUS #### [address] Urobilinogen,Urine Normal Normal Normal [facility] Comment on above: Order Comment: Name Collection Type:: Clean-Voided Midstream Performed By: #### C UU, ADDONUAPLUS #### [address] WBC,Urine 5-9 High 0-4 [facility] Comment on above: Order Comment: Name Collection Type:: Clean-Voided Midstream Performed By: #### C UU, ADDONUAPLUS #### [address] [place] [address] [place] Epithelial cells.squamous [# /area] in Urine sediment by Automated countOrdered By: Devon Leon on 09-26-2023 Epithelial cells.squamous Auto (Urine sed) [#/Area] 5-9 [HPF] High 0-2 [facility] Erythrocytes [#/area] in Uri ne sediment by Automated countOrdered By: Devon Leon on 09-26-2023 RBC Auto (Urine sed) [#/Area] 3-4 [HPF] 0-4 [facility] Glucose [Mass/volume] in Uri ne by Test stripOrdered By: Devon Leon on 09-26-2023 Glucose Test strip (U) [Mass/Vol] Normal mg/dL Normal [facility] Hemoglobin Test strip Ql (U) Ordered By: Devon Leon on 09-26-2023 Hemoglobin Ql (U) 2+ High Negative [facility] Hyaline casts [#/area] in Ur ine sediment by Automated countOrdered By: Devon Leon on 09-26-2023 Hyaline casts Auto (Urine sed) [#/Area] None [LPF] 0-8 [facility] Ketones [Presence] in Urine by Test stripOrdered By: Devon Leon on 09-26-2023 Ketones Ql (U) Negative Normal Negative [facility] Comment on above: Order Comment: Name Collection Type:: Clean-Voided Midstream Performed By: #### C UU, ADDONUAPLUS #### [facility] [address] [place] [address] [place] Leukocyte esterase [Presence ] in Urine by Test stripOrdered By: Devon Leon on 09-26-2023 Leukocyte esterase Test strip Ql (U) 2+ High Negative [facility] Comment on above: Order Comment: Name Collection Type:: Clean-Voided Midstream Performed By: #### C UU, ADDONUAPLUS #### [facility] [address] [place] [address] [place] Leukocytes [#/area] in Urine sediment by Automated countOrdered By: Devon Leon on 09-26-2023 WBC Auto (Urine sed) [#/Area] 5-9 [HPF] High 0-4 [facility] Mucus [Presence] in Urine by AutomatedOrdered By: Devon Leon on 09-26-2023 Mucus Auto Ql (U) 2+ [LPF] Abnormal [facility] Nitrite Test strip Ql (U)Ord ered By: Devon Leon on 09-26-2023 Nitrite Ql (U) Negative Negative [facility] Protein Test strip (U) [Mass /Vol]Ordered By: Devon Leon on 09-26-2023 Protein (U) [Mass/Vol] Trace mg/dL High Negative [facility] Specific gravity Test strip (U) [Rel density]Ordered By: Devon Leon on 09-26-2023 Specific gravity (U) [Rel density] 1.030 1.001-1.03 0 [facility] Spermatozoa [#/area] in Urin e sediment by Automated countOrdered By: Devon Leon on 09-26-2023 Spermatozoa Auto (Urine sed) [#/Area] 5-9 [HPF] High 0-2 [facility] Urine Cultureon 09-26-2023 Bacteria identified Cx Nom (U) ORGANISM: Strep agalactiae - (group b) (O:STRAGA) [place] Count 75,000 PERFORMED BY: [facility] [address] [place] [address] PATHOLOGIST ASSESSMENT DIRECTOR ALLA OROZCO M.D. Normal [facility] Comment on above: Performed By: #### C UU, ADDONUAPLUS ####[facility] Urine appearanceOrdered By: Devon Leon on 09-26-2023 Appearance (U) Clear Normal Clear [facility] Comment on above: Order Comment: Name Collection Type:: Clean-Voided Midstream Performed By: #### C UU, ADDONUAPLUS #### [facility] [address] Urine culture routineOrdered By: Devon Leon on 09-26-2023 Bacteria identified Cx Nom (U) Strep agalactiae - (group b) Abnormal [facility] Urobilinogen Test strip (U) [Mass/Vol]Ordered By: Devon Leon on 08-11-2024 Urobilinogen (U) [Mass/Vol] Normal mg/dL Normal [facility] pH of Urine by Test stripOrd ered By: Devon Leon on 09-26-2023 pH (U) 6.0 [pH] Normal 5.0-9.0 [facility] Comment on above: Order Comment: Name Collection Type:: Clean-Voided Midstream Performed By: #### C UU, ADDONUAPLUS #### [facility] [address] Alanine aminotransferase [En zymatic activity/volume] in Serum or PlasmaOrdered By: Nataly Toure on 08-03-2023 ALT [Catalytic activity/Vol] 14 U/L 7-52 [facility] Albumin [Mass/volume] in Ser um or Plasma by Bromocresol green (BCG) dye binding methoOrdered By: Nataly Toure on 08-03-2023 Albumin BCG dye [Mass/Vol] 4.4 g/dL 3.5-5.7 [facility] Alkaline phosphatase [Enzyma tic activity/volume] in Serum or PlasmaOrdered By: Nataly Toure on 08-03-2023 ALP [Catalytic activity/Vol] 85 U/L 34-104 [facility] Aspartate aminotransferase [ Enzymatic activity/volume] in Serum or PlasmaOrdered By: Nataly Toure on 08-03-2023 AST [Catalytic activity/Vol] 13 U/L 13-39 [facility] Basophils Auto (Bld) [#/Vol] Ordered By: Nataly Toure on 08-03-2023 Basophils (Bld) [#/Vol] 0.0 10*3/uL 0.0-0.2 [facility] Basophils/100 WBC Auto (Bld) Ordered By: Nataly Toure on 08-03-2023 Basophils/100 WBC (Bld) 0.4 % . [facility] Bilirubin.total [Mass/volume ] in Serum or PlasmaOrdered By: Nataly Toure on 08-03-2023 Bilirubin [Mass/Vol] 0.5 mg/dL 0.3-1.[address] [facility] Calcium [Mass/volume] in Ser um or PlasmaOrdered By: Nataly Toure on 08-03-2023 Calcium [Mass/Vol] 9.5 mg/dL 8.6-10.3 [facility] Carbon dioxide, total [Moles /volume] in Serum or PlasmaOrdered By: Nataly Toure on 08-03-2023 CO2 [Moles/Vol] 27.2 mmol/L 21.0-31.0 [facility] Chloride [Moles/volume] in S rosa or PlasmaOrdered By: Nataly Toure on 08-03-2023 Chloride [Moles/Vol] 105 mmol/L 98-[address] [facility] Cholesterol [Mass/volume] in Serum or PlasmaOrdered By: Nataly Toure on 08-03-2023 Cholesterol [Mass/Vol] 159 mg/dL 140-200 [facility] Comment on above: Chol less than 200 m g/dl low riskChol 201-239 mg/dl borderline riskChol 240 mg/dl and greater high risk Cholesterol in LDL Calc [Mas s/Vol]Ordered By: Nataly Toure on 08-03-2023 Cholesterol in LDL [Mass/Vol] 82 mg/dL 0-100 [facility] Comment on above: LDL ATP III CLASSIFI CATIONLDL less than 100 mg/dL OptimalLDL 100-129 mg/dL Near or above optimalLDL 130-159 mg/dL Borderline highLDL 160-189 mg/dL HighLDL greater than 189 mg/dL Very high Cholesterol in VLDL Calc [Ma ss/Vol]Ordered By: Nataly Toure on 08-03-2023 Cholesterol in VLDL [Mass/Vol] 28 mg/dL [facility] Creatinine [Mass/volume] in Serum or PlasmaOrdered By: Nataly Toure on 08-03-2023 Creatinine [Mass/Vol] 0.78 mg/dL 0.60-1.20 [facility] Eosinophils Auto (Bld) [#/Vo l]Ordered By: Nataly Toure on 08-03-2023 Eosinophils (Bld) [#/Vol] 0.0 10*3/uL 0.0-0.45 [facility] Eosinophils/100 WBC Auto (Bl d)Ordered By: Nataly Toure on 08-03-2023 Eosinophils/100 WBC (Bld) 0.5 % . [facility] Erythrocyte distribution wid th Auto (RBC) [Ratio]Ordered By: Nataly Toure on 08-03-2023 Erythrocyte distribution width (RBC) [Ratio] 14.3 % 11.9-15.3 [facility] Globulin Calc (S) [Mass/Vol] Ordered By: Nataly Toure on 08-03-2023 Globulin (S) [Mass/Vol] 2.8 g/dL [facility] Glucose [Mass/volume] in Ser um or PlasmaOrdered By: Nataly Toure on 08-03-2023 Glucose [Mass/Vol] 82 mg/dL 70-100 [facility] Comment on above: ADA recommended refe rence rangeRandom Glucose Reference Range is dependent on time and content of last meal. Glucose of more than 200 mg/dL in a nonstressed, ambulatory subject supports the diagnosis of Diabetes Mellitus. Hematocrit Auto (Bld) [Volum e fraction]Ordered By: Nataly Toure on 08-03-2023 Hematocrit (Bld) [Volume fraction] 36.8 % 34.0-46.4 [facility] Hemoglobin [Mass/volume] in BloodOrdered By: Nataly Toure on 08-03-2023 Hemoglobin (Bld) [Mass/Vol] 12.2 g/dL 11.8-15.4 [facility] Iron [Mass/volume] in Serum or PlasmaOrdered By: Nataly Toure on 08-03-2023 Iron [Mass/Vol] 43 ug/dL Low 50-212 [facility] Iron binding capacity [Mass/ volume] in Serum or PlasmaOrdered By: Nataly Toure on 08-03-2023 Iron binding capacity [Mass/Vol] 382 ug/dL 255-450 [facility] Iron saturation [Mass Fracti on] in Serum or PlasmaOrdered By: Nataly Toure on 08-03-2023 Iron saturation [Mass fraction] 11.3 % Low 20-50 [facility] Leukocytes [#/volume] correc kee for nucleated erythrocytes in Blood by Automated counOrdered By: Nataly Toure on 08-03-2023 WBC corrected for nucl RBC Auto (Bld) [#/Vol] 7.2 10*3/uL 3.8-11.6 [facility] Lymphocytes Auto (Bld) [#/Vo l]Ordered By: Nataly Toure on 08-03-2023 Lymphocytes (Bld) [#/Vol] 1.6 10*3/uL 1.00-4.8 [facility] Lymphocytes/100 WBC Auto (Bl d)Ordered By: Nataly Toure on 08-03-2023 Lymphocytes/100 WBC (Bld) 22.8 % . [facility] MCH Auto (RBC) [Entitic mass ]Ordered By: Nataly Toure on 08-03-2023 MCH (RBC) [Entitic mass] 25.8 pg 24.7-34.3 [facility] MCHC Auto (RBC) [Mass/Vol]Or dered By: Nataly Toure on 08-03-2023 MCHC (RBC) [Mass/Vol] 33.1 g/dL 32.0-35.0 [facility] MCV Auto (RBC) [Entitic vol] Ordered By: Nataly Toure on 08-03-2023 MCV (RBC) [Entitic vol] 78.0 fL Low 80-100 [facility] Monocytes Auto (Bld) [#/Vol] Ordered By: Nataly Toure on 08-03-2023 Monocytes (Bld) [#/Vol] 0.4 10*3/uL 0.0-0.8 [facility] Monocytes/100 WBC Auto (Bld) Ordered By: Nataly Toure on 08-03-2023 Monocytes/100 WBC (Bld) 5.4 % . [facility] Neutrophils Auto (Bld) [#/Vo l]Ordered By: Nataly Toure on 08-03-2023 Neutrophils (Bld) [#/Vol] 5.1 10*3/uL 1.8-7.7 [facility] Neutrophils/100 WBC Auto (Bl d)Ordered By: Nataly Toure on 08-03-2023 Neutrophils/100 WBC (Bld) 70.9 % . [facility] No Panel InformationOrdered By: Nataly Toure on 08-03-2023 Estimated GFR (CKD-EPI) > 60.0 mL/Min [facility] Creatinine Clearance (Chem N/A [facility] Nucleated erythrocytes [Pres ence] in Blood by Automated countOrdered By: Nataly Toure on 08-03-2023 Nucleated RBC Auto Ql (Bld) 0.2 /100{WBC} 0-0.5 [facility] Platelet mean volume Auto (B ld) [Entitic vol]Ordered By: Nataly Toure on 08-03-2023 Platelet mean volume (Bld) [Entitic vol] 9.2 fL 6.3-10.7 [facility] Platelets Auto (Bld) [#/Vol] Ordered By: Nataly Toure on 08-03-2023 Platelets (Bld) [#/Vol] 260 10*3/uL 150-450 [facility] Potassium [Moles/volume] in Serum or PlasmaOrdered By: Nataly Toure on 08-03-2023 Potassium [Moles/Vol] 3.6 mmol/L 3.5-5.1 [facility] Protein [Mass/volume] in Ser um or PlasmaOrdered By: Nataly Toure on 08-03-2023 Protein [Mass/Vol] 7.2 g/dL 6.4-8.9 [facility] RBC Auto (Bld) [#/Vol]Ordere d By: Nataly Toure on 08-03-2023 RBC (Bld) [#/Vol] 4.72 10*6/uL 3.60-5.00 [facility] Serum or plasma albumin/glob ulin mass ratioOrdered By: Nataly Toure on 08-03-2023 Albumin/Globulin [Mass ratio] 1.6 {ratio} [facility] Serum or plasma anion gap de terminationOrdered By: Nataly Toure on 08-03-2023 Anion gap [Moles/Vol] 11.4 mmol/L 6.0-15.0 [facility] Serum or plasma high density lipoprotein (HDL) cholesterol measurementOrdered By: Nataly Toure on 08-03-2023 Cholesterol in HDL [Mass/Vol] 49 mg/dL 23-92 [facility] Comment on above: HDL CHOL ATP-III CLA SSIFICATION Cardiovascular RiskHDL > or equal to 60 mg/dL LOWHDL < 40 mg/dL HIGH Serum or plasma insulin nikita urement (units/volume)Ordered By: Nataly Toure on 08-03-2023 Insulin Qn 14.1 u[iU]/mL 2.6-24.9 [facility] Comment on above: Performed at: [facility] [employer] [address] [id number] Director: Sam Lopez PhD, Phone: [phone] Serum or plasma total choles terol/high density lipoprotein (HDL) cholesterol mass ratOrdered By: Nataly Toure on 08-03-2023 Cholesterol.total/Chol esterol in HDL [Mass ratio] 3.2 {ratio} <5.0 [facility] Sodium [Moles/volume] in Ser um or PlasmaOrdered By: Nataly Toure on 08-03-2023 Sodium [Moles/Vol] 140 mmol/L 136-145 [facility] Thyrotropin [Units/volume] i n Serum or PlasmaOrdered By: Nataly Toure on 08-03-2023 TSH Qn 3.20 m[IU]/L 0.45-5.33 [facility] Transferrin [Mass/volume] in Serum or PlasmaOrdered By: Nataly Toure on 08-03-2023 Transferrin [Mass/Vol] 273 mg/dL 203-362 [facility] Triglyceride [Mass/volume] i n Serum or PlasmaOrdered By: Nataly Toure on 08-03-2023 Triglyceride [Mass/Vol] 140 mg/dL 0-149 [facility] Comment on above: TRIG ATP III CLASSIF ICATIONTRIG less than 150 mg/dL NormalTRIG 150-199 mg/dL Borderline highTRIG 200-500 mg/dL High TRIG greater than 500 mg/dL Very highStandard traceable to the Center for Disease Conrtrol and Prevention (CDC) test method. Urea nitrogen [Mass/volume] in Serum or PlasmaOrdered By: Nataly Toure on 08-03-2023 Urea nitrogen [Mass/Vol] 10 mg/dL 7-25 [facility] WBC Auto (Bld) [#/Vol]Ordere d By: Nataly Toure on 08-03-2023 WBC (Bld) [#/Vol] 7.2 10*3/uL 3.8-11.6 [facility] Glucose mean value [Mass/vol ume] in Blood Estimated from glycated hemoglobinOrdered By: Nataly Toure on 03-17-2023 Average glucose Estimated from glycated hemoglobin (Bld) [Mass/Vol] 114 mg/dL [facility] Hemoglobin A1c percentageOrd ered By: Nataly Toure on 03-17-2023 HbA1c (Bld) [Mass fraction] 5.6 % 4.3-5.6 [facility] Comment on above: Increased risk for d iabetes: 5.7 - 6.4diabetes: >6.4glycemic control for adults with diabetes: <7.0 Alanine aminotransferase [En zymatic activity/volume] in Serum or PlasmaOrdered By: Nataly Toure on 03-04-2023 ALT [Catalytic activity/Vol] 12 U/L 7-52 [facility] Albumin [Mass/volume] in Ser um or Plasma by Bromocresol green (BCG) dye binding methoOrdered By: Nataly Toure on 03-04-2023 Albumin BCG dye [Mass/Vol] 3.7 g/dL 3.5-5.7 [facility] Alkaline phosphatase [Enzyma tic activity/volume] in Serum or PlasmaOrdered By: Nataly Toure on 03-04-2023 ALP [Catalytic activity/Vol] 100 U/L 34-104 [facility] Aspartate aminotransferase [ Enzymatic activity/volume] in Serum or PlasmaOrdered By: Nataly Toure on 03-04-2023 AST [Catalytic activity/Vol] 12 U/L 13-39 [facility] Basophils Auto (Bld) [#/Vol] Ordered By: Nataly Toure on 03-04-2023 Basophils (Bld) [#/Vol] 0.1 10*3/uL 0.0-0.2 [facility] Basophils/100 WBC Auto (Bld) Ordered By: Nataly Toure on 03-04-2023 Basophils/100 WBC (Bld) 1.0 % . [facility] Bilirubin.total [Mass/volume ] in Serum or PlasmaOrdered By: Nataly Toure on 03-04-2023 Bilirubin [Mass/Vol] 0.3 mg/dL 0.3-1.[address] [facility] Calcium [Mass/volume] in Ser um or PlasmaOrdered By: Nataly Toure on 03-04-2023 Calcium [Mass/Vol] 8.9 mg/dL 8.6-10.3 [facility] Carbon dioxide, total [Moles /volume] in Serum or PlasmaOrdered By: Nataly Toure on 03-04-2023 CO2 [Moles/Vol] 26.6 mmol/L 21.0-31.0 [facility] Chloride [Moles/volume] in S rosa or PlasmaOrdered By: Nataly Toure on 03-04-2023 Chloride [Moles/Vol] 105 mmol/L 98-[address] [facility] Cholesterol [Mass/volume] in Serum or PlasmaOrdered By: Nataly Toure on 03-04-2023 Cholesterol [Mass/Vol] 231 mg/dL 140-200 [facility] Comment on above: Chol less than 200 m g/dl low riskChol 201-239 mg/dl borderline riskChol 240 mg/dl and greater high risk Cholesterol in LDL Calc [Mas s/Vol]Ordered By: Nataly Toure on 03-04-2023 Cholesterol in LDL [Mass/Vol] TNP [facility] Comment on above: Test not performed Cholesterol in LDL [Mass/vol ume] in Serum or PlasmaOrdered By: Nataly Toure on 03-04-2023 Cholesterol in LDL [Mass/Vol] 81 mg/dL 0-100 [facility] Comment on above: LDL ATP III CLASSIFI CATIONLDL less than 100 mg/dL OptimalLDL 100-129 mg/dL Near or above optimalLDL 130-159 mg/dL Borderline highLDL 160-189 mg/dL HighLDL greater than 189 mg/dL Very high Cholesterol in VLDL Calc [Ma ss/Vol]Ordered By: Nataly Toure on 03-04-2023 Cholesterol in VLDL [Mass/Vol] 172 mg/dL [facility] Creatinine [Mass/volume] in Serum or PlasmaOrdered By: Nataly Toure on 03-04-2023 Creatinine [Mass/Vol] 0.72 mg/dL 0.60-1.20 [facility] Eosinophils Auto (Bld) [#/Vo l]Ordered By: Nataly Toure on 03-04-2023 Eosinophils (Bld) [#/Vol] 0.1 10*3/uL 0.0-0.45 [facility] Eosinophils/100 WBC Auto (Bl d)Ordered By: Nataly Toure on 03-04-2023 Eosinophils/100 WBC (Bld) 2.0 % . [facility] Erythrocyte distribution wid th Auto (RBC) [Ratio]Ordered By: Nataly Toure on 03-04-2023 Erythrocyte distribution width (RBC) [Ratio] 16.0 % 11.9-15.3 [facility] Ferritin [Mass/volume] in Se rum or PlasmaOrdered By: Nataly Toure on 03-04-2023 Ferritin [Mass/Vol] 18.9 ng/mL 11.0-306.8 [facility] Globulin Calc (S) [Mass/Vol] Ordered By: Nataly Toure on 03-04-2023 Globulin (S) [Mass/Vol] 2.7 g/dL [facility] Glucose [Mass/volume] in Ser um or PlasmaOrdered By: Nataly Toure on 03-04-2023 Glucose [Mass/Vol] 95 mg/dL 70-100 [facility] Comment on above: ADA recommended refe rence rangeRandom Glucose Reference Range is dependent on time and content of last meal. Glucose of more than 200 mg/dL in a nonstressed, ambulatory subject supports the diagnosis of Diabetes Mellitus. Hematocrit Auto (Bld) [Volum e fraction]Ordered By: Nataly Toure on 03-04-2023 Hematocrit (Bld) [Volume fraction] 34.7 % 34.0-46.4 [facility] Hemoglobin [Mass/volume] in BloodOrdered By: Nataly Toure on 03-04-2023 Hemoglobin (Bld) [Mass/Vol] 11.3 g/dL 11.8-15.4 [facility] Iron [Mass/volume] in Serum or PlasmaOrdered By: Nataly Toure on 03-04-2023 Iron [Mass/Vol] 43 ug/dL 50-212 [facility] Iron binding capacity [Mass/ volume] in Serum or PlasmaOrdered By: Nataly Toure on 03-04-2023 Iron binding capacity [Mass/Vol] 375 ug/dL 255-450 [facility] Iron saturation [Mass Fracti on] in Serum or PlasmaOrdered By: Nataly Toure on 03-04-2023 Iron saturation [Mass fraction] 11.5 % 20-50 [facility] Leukocytes [#/volume] correc kee for nucleated erythrocytes in Blood by Automated counOrdered By: Nataly Toure on 03-04-2023 WBC corrected for nucl RBC Auto (Bld) [#/Vol] 6.2 10*3/uL 3.8-11.6 [facility] Lymphocytes Auto (Bld) [#/Vo l]Ordered By: Nataly Toure on 03-04-2023 Lymphocytes (Bld) [#/Vol] 1.8 10*3/uL 1.00-4.8 [facility] Lymphocytes/100 WBC Auto (Bl d)Ordered By: Nataly Toure on 03-04-2023 Lymphocytes/100 WBC (Bld) 29.4 % . [facility] MCH Auto (RBC) [Entitic mass ]Ordered By: Nataly Toure on 03-04-2023 MCH (RBC) [Entitic mass] 25.1 pg 24.7-34.3 [facility] MCHC Auto (RBC) [Mass/Vol]Or dered By: Nataly Toure on 03-04-2023 MCHC (RBC) [Mass/Vol] 32.7 g/dL 32.0-35.0 [facility] MCV Auto (RBC) [Entitic vol] Ordered By: Nataly Toure on 03-04-2023 MCV (RBC) [Entitic vol] 76.7 fL 80-100 [facility] Monocytes Auto (Bld) [#/Vol] Ordered By: Nataly Toure on 03-04-2023 Monocytes (Bld) [#/Vol] 0.6 10*3/uL 0.0-0.8 [facility] Monocytes/100 WBC Auto (Bld) Ordered By: Nataly Toure on 03-04-2023 Monocytes/100 WBC (Bld) 9.2 % . [facility] Neutrophils Auto (Bld) [#/Vo l]Ordered By: Nataly Toure on 03-04-2023 Neutrophils (Bld) [#/Vol] 3.6 10*3/uL 1.8-7.7 [facility] Neutrophils/100 WBC Auto (Bl d)Ordered By: Nataly Toure on 03-04-2023 Neutrophils/100 WBC (Bld) 58.4 % . [facility] No Panel InformationOrdered By: Nataly Toure on 03-04-2023 Estimated GFR (CKD-EPI) > 60.0 mL/Min [facility] Creatinine Clearance (Chem N/A [facility] Nucleated erythrocytes [Pres ence] in Blood by Automated countOrdered By: Nataly Toure on 03-04-2023 Nucleated RBC Auto Ql (Bld) 0.1 /100{WBC} 0-0.5 [facility] Platelet mean volume Auto (B ld) [Entitic vol]Ordered By: Nataly Toure on 03-04-2023 Platelet mean volume (Bld) [Entitic vol] 9.8 fL 6.3-10.7 [facility] Platelets Auto (Bld) [#/Vol] Ordered By: Nataly Toure on 03-04-2023 Platelets (Bld) [#/Vol] 217 10*3/uL 150-450 [facility] Potassium [Moles/volume] in Serum or PlasmaOrdered By: Nataly Toure on 03-04-2023 Potassium [Moles/Vol] 3.8 mmol/L 3.5-5.1 [facility] Protein [Mass/volume] in Ser um or PlasmaOrdered By: Nataly Toure on 03-04-2023 Protein [Mass/Vol] 6.4 g/dL 6.4-8.9 [facility] RBC Auto (Bld) [#/Vol]Ordere d By: Nataly Toure on 03-04-2023 RBC (Bld) [#/Vol] 4.52 10*6/uL 3.60-5.00 [facility] Serum or plasma albumin/glob ulin mass ratioOrdered By: Nataly Toure on 03-04-2023 Albumin/Globulin [Mass ratio] 1.4 {ratio} [facility] Serum or plasma anion gap de terminationOrdered By: Nataly Toure on 03-04-2023 Anion gap [Moles/Vol] 11.2 mmol/L 6.0-15.0 [facility] Serum or plasma high density lipoprotein (HDL) cholesterol measurementOrdered By: Nataly Toure on 03-04-2023 Cholesterol in HDL [Mass/Vol] 35 mg/dL 23-92 [facility] Comment on above: HDL CHOL ATP-III CLA SSIFICATION Cardiovascular RiskHDL > or equal to 60 mg/dL LOWHDL < 40 mg/dL HIGH Serum or plasma total choles terol/high density lipoprotein (HDL) cholesterol mass ratOrdered By: Nataly Toure on 03-04-2023 Cholesterol.total/Chol esterol in HDL [Mass ratio] 6.6 {ratio} <5.0 [facility] Sodium [Moles/volume] in Ser um or PlasmaOrdered By: Nataly Toure on 03-04-2023 Sodium [Moles/Vol] 139 mmol/L 136-145 [facility] Thyrotropin [Units/volume] i n Serum or PlasmaOrdered By: Nataly Toure on 03-04-2023 TSH Qn 1.50 m[IU]/L 0.45-5.33 [facility] Transferrin [Mass/volume] in Serum or PlasmaOrdered By: Nataly Toure on 03-04-2023 Transferrin [Mass/Vol] 268 mg/dL 203-362 [facility] Triglyceride [Mass/volume] i n Serum or PlasmaOrdered By: Nataly Toure on 03-04-2023 Triglyceride [Mass/Vol] 863 mg/dL 0-149 [facility] Comment on above: If the triglyceride [...] on 03-04-2023 Urea nitrogen [Mass/Vol] 11 mg/dL 7-25 [facility] Vitamin B12 ser/plasOrdered By: Nataly Toure on 03-04-2023 Cobalamin (Vitamin B12) [Mass/Vol] 303 pg/mL 180-914 [facility] WBC Auto (Bld) [#/Vol]Ordere d By: Nataly Toure on 03-04-2023 WBC (Bld) [#/Vol] 6.2 10*3/uL 3.8-11.6 [facility] Automated erythrocytes count in urine sediment (number/area)Ordered By: EDE WAY on 02-13-2023 RBC Auto (Urine sed) [#/Area] Innumerable [HPF] 0-4 [facility] Automated leukocytes count i n urine sediment (number/area)Ordered By: EDE WAY on 02-13-2023 WBC Auto (Urine sed) [#/Area] 5-9 [HPF] 0-4 [facility] Basophils Auto (Bld) [#/Vol] Ordered By: EDE WAY on 02-13-2023 Basophils (Bld) [#/Vol] 0.1 10*3/uL 0.0-0.2 [facility] Basophils/100 WBC Auto (Bld) Ordered By: EDE WAY on 02-13-2023 Basophils/100 WBC (Bld) 0.7 % . [facility] Bilirubin Test strip Ql (U)O rdered By: EDE WAY on 02-13-2023 Bilirubin Ql (U) Negative Negative [facility] Color Auto (U)Ordered By: SAGE WAY on 02-13-2023 Color (U) [place] Yellow [facility] Eosinophils Auto (Bld) [#/Vo l]Ordered By: EDE WAY on 02-13-2023 Eosinophils (Bld) [#/Vol] 0.1 10*3/uL 0.0-0.45 [facility] Eosinophils/100 WBC Auto (Bl d)Ordered By: EDE WAY on 02-13-2023 Eosinophils/100 WBC (Bld) 0.6 % . [facility] Erythrocyte distribution wid th Auto (RBC) [Ratio]Ordered By: EDE WAY on 02-13-2023 Erythrocyte distribution width (RBC) [Ratio] 16.2 % 11.9-15.3 [facility] Hematocrit Auto (Bld) [Volum e fraction]Ordered By: EDE WAY on 02-13-2023 Hematocrit (Bld) [Volume fraction] 33.2 % 34.0-46.4 [facility] Hemoglobin [Mass/volume] in BloodOrdered By: EDE WAY on 02-13-2023 Hemoglobin (Bld) [Mass/Vol] 11.2 g/dL 11.8-15.4 [facility] Ketones Auto test strip (U) [Mass/Vol]Ordered By: EDE WAY on 02-13-2023 Ketones (U) [Mass/Vol] Trace Negative [facility] - UrinalysisOrder ed By: EDE WAY on 02-13-2023 Hyaline casts LM Ql (Urine sed) 0-8 [LPF] 0-8 [facility] Leukocytes [#/volume] correc kee for nucleated erythrocytes in Blood by Automated counOrdered By: EDE WAY on 02-13-2023 WBC corrected for nucl RBC Auto (Bld) [#/Vol] 9.1 10*3/uL 3.8-11.6 [facility] Lymphocytes Auto (Bld) [#/Vo l]Ordered By: EDE WAY on 02-13-2023 Lymphocytes (Bld) [#/Vol] 1.5 10*3/uL 1.00-4.8 [facility] Lymphocytes/100 WBC Auto (Bl d)Ordered By: EDE WAY on 02-13-2023 Lymphocytes/100 WBC (Bld) 16.2 % . [facility] MCH Auto (RBC) [Entitic mass ]Ordered By: EDE WAY on 02-13-2023 MCH (RBC) [Entitic mass] 25.6 pg 24.7-34.3 [facility] MCHC Auto (RBC) [Mass/Vol]Or dered By: EDE WAY on 02-13-2023 MCHC (RBC) [Mass/Vol] 33.8 g/dL 32.0-35.0 [facility] MCV Auto (RBC) [Entitic vol] Ordered By: EDE WAY on 02-13-2023 MCV (RBC) [Entitic vol] 75.7 fL 80-100 [facility] Monocytes Auto (Bld) [#/Vol] Ordered By: EDE WAY on 02-13-2023 Monocytes (Bld) [#/Vol] 0.8 10*3/uL 0.0-0.8 [facility] Monocytes/100 WBC Auto (Bld) Ordered By: EDE WAY on 02-13-2023 Monocytes/100 WBC (Bld) 8.8 % . [facility] Neutrophils Auto (Bld) [#/Vo l]Ordered By: EDE WAY on 02-13-2023 Neutrophils (Bld) [#/Vol] 6.7 10*3/uL 1.8-7.7 [facility] Neutrophils/100 WBC Auto (Bl d)Ordered By: EDE WAY on 02-13-2023 Neutrophils/100 WBC (Bld) 73.7 % . [facility] Nitrite Test strip Ql (U)Ord ered By: EDE WAY on 02-13-2023 Nitrite Ql (U) Negative Negative [facility] Nucleated erythrocytes [Pres ence] in Blood by Automated countOrdered By: EDE WAY on 02-13-2023 Nucleated RBC Auto Ql (Bld) 0.1 /100{WBC} 0-0.5 [facility] Platelet mean volume Auto (B ld) [Entitic vol]Ordered By: EDE WAY on 02-13-2023 Platelet mean volume (Bld) [Entitic vol] 8.5 fL 6.3-10.7 [facility] Platelets Auto (Bld) [#/Vol] Ordered By: EDE WAY on 02-13-2023 Platelets (Bld) [#/Vol] 178 10*3/uL 150-450 [facility] Protein Auto test strip (U) [Mass/Vol]Ordered By: EDE WAY on 02-13-2023 Protein (U) [Mass/Vol] 30 mg/dL [facility] RBC Auto (Bld) [#/Vol]Ordere d By: EDE WAY on 02-13-2023 RBC (Bld) [#/Vol] 4.38 10*6/uL 3.60-5.00 [facility] Reagin Ab [Presence] in Seru m by RPROrdered By: EDE WAY on 02-13-2023 Reagin Ab RPR Ql (S) Non-Reactive Non Reactive [facility] Comment on above: Performed at: - [facility] [address] [id number] Director: Sam Lopez PhD, Phone: [phone] Specific gravity Auto test s trip (U) [Rel density]Ordered By: EDE WAY on 02-13-2023 Specific gravity (U) [Rel density] 1.015 1.001-1.03 0 [facility] Squamous epithelial cells de tection in urine sediment by light microscopyOrdered By: EDE WAY on 02-13-2023 Epithelial cells.squamous LM Ql (Urine sed) 3-4 [HPF] 0-2 [facility] Urine bacteria detection by automated methodOrdered By: EDE WAY on 02-13-2023 Bacteria Auto Ql (U) None seen None Seen [facility] Urine clarity by refractomet ry automatedOrdered By: EDE WAY on 02-13-2023 Clarity Refractometry automated (U) Clear Clear [facility] Urine culture routineOrdered By: EDE WAY on 02-13-2023 Bacteria identified Cx Nom (U) No Growth 2 Days [facility] Urine glucose measurement by automated test strip (mass/volume)Ordered By: EDE WAY on 02-13-2023 Glucose Auto test strip (U) [Mass/Vol] Normal mg/dL Normal [facility] Urine hemoglobin detection b y automated test stripOrdered By: EDE WAY on 02-13-2023 Hemoglobin Auto test strip Ql (U) 3+ Negative [facility] Urine leukocyte esterase det ection by automated test stripOrdered By: EDE WAY on 02-13-2023 Leukocyte esterase Auto test strip Ql (U) 1+ Negative [facility] Urobilinogen Auto test strip (U) [Mass/Vol]Ordered By: EDE WAY on 02-13-2023 Urobilinogen (U) [Mass/Vol] Normal mg/dL Normal [facility] WBC Auto (Bld) [#/Vol]Ordere d By: EDE WAY on 02-13-2023 WBC (Bld) [#/Vol] 9.1 10*3/uL 3.8-11.6 [facility] pH Auto test strip (U)Ordere d By: EDE WAY on 02-13-2023 pH (U) 6.5 [pH] 5.0-9.0 [facility] Amphetamine Screen Ql (U)Ord ered By: Radha Molina on 02-01-2023 Amphetamines Ql (U) Negative Negative [facility] Automated erythrocytes count in urine sediment (number/area)Ordered By: Radha Molina on 02-01-2023 RBC Auto (Urine sed) [#/Area] 3-4 [HPF] 0-4 [facility] Automated leukocytes count i n urine sediment (number/area)Ordered By: Radha Molina on 02-01-2023 WBC Auto (Urine sed) [#/Area] 10-19 [HPF] 0-4 [facility] Automated urine sediment esteban cium oxalate crystal count by microscopy (number/high powOrdered By: Radha Molina on 02-01-2023 Calcium oxalate crystals LM.HPF (Urine sed) [#/Area] 3+ [HPF] [facility] Barbiturates [Presence] in U rine by Screen methodOrdered By: Radha Molina on 02-01-2023 Barbiturates Screen Ql (U) Negative Negative [facility] Benzodiazepines Screen Ql (U )Ordered By: Radha Molina on 02-01-2023 Benzodiazepines Ql (U) Negative Negative [facility] Benzoylecgonine [Presence] i n Urine by Screen methodOrdered By: Radha Molina on 02-01-2023 Benzoylecgonine Screen Ql (U) Negative Negative [facility] Bilirubin Test strip Ql (U)O rdered By: Radha Molina on 02-01-2023 Bilirubin Ql (U) Negative Negative [facility] Color Auto (U)Ordered By: Mirna pruitt Jesse on 02-01-2023 Color (U) Yellow Yellow [facility] Ketones Auto test strip (U) [Mass/Vol]Ordered By: Radha Molina on 02-01-2023 Ketones (U) [Mass/Vol] Trace Negative [facility] - UrinalysisOrder ed By: Radha Molina on 02-01-2023 Hyaline casts LM Ql (Urine sed) 0-8 [LPF] 0-8 [facility] Nitrite Test strip Ql (U)Ord ered By: Radha Molina on 02-01-2023 Nitrite Ql (U) Negative Negative [facility] Opiates [Presence] in Urine by Screen methodOrdered By: Radha Molina on 02-01-2023 Opiates Screen Ql (U) Negative Negative [facility] Phencyclidine Screen Ql (U)O rdered By: Radha Molina on 02-01-2023 Phencyclidine Ql (U) Negative Negative [facility] Comment on above: These are unconfirme d results and should not be used for legal purposes. Drug Cut-Off Concentration: AMPH 1000 ng/mL KELLY 200 ng/mL JOE 200 ng/mL COCM 300 ng/mL OP 300 ng/mL PCP 25 ng/mL Protein Auto test strip (U) [Mass/Vol]Ordered By: Radha Molina on 02-01-2023 Protein (U) [Mass/Vol] Trace mg/dL Negative [facility] Specific gravity Auto test s trip (U) [Rel density]Ordered By: Radha Molina on 02-01-2023 Specific gravity (U) [Rel density] 1.025 1.001-1.03 0 [facility] Squamous epithelial cells de tection in urine sediment by light microscopyOrdered By: Radha Molina on 02-01-2023 Epithelial cells.squamous LM Ql (Urine sed) 10-19 [HPF] 0-2 [facility] Urine bacteria detection by automated methodOrdered By: Radha Molina on 02-01-2023 Bacteria Auto Ql (U) 1+ None Seen [facility] Urine clarity by refractomet ry automatedOrdered By: Radha Molina on 02-01-2023 Clarity Refractometry automated (U) Cloudy Clear [facility] Urine culture routineOrdered By: Radha Molina on 02-01-2023 Bacteria identified Cx Nom (U) 2 Days [facility] Urine glucose measurement by automated test strip (mass/volume)Ordered By: Radha Molina on 02-01-2023 Glucose Auto test strip (U) [Mass/Vol] Normal mg/dL Normal [facility] Urine hemoglobin detection b y automated test stripOrdered By: Radha Molina on 02-01-2023 Hemoglobin Auto test strip Ql (U) Negative Negative [facility] Urine leukocyte esterase det ection by automated test stripOrdered By: Radha Molina on 02-01-2023 Leukocyte esterase Auto test strip Ql (U) 2+ Negative [facility] Urine sediment crystal ident ification by light microscopyOrdered By: Radha Molina on 02-01-2023 Crystals LM Nom (Urine sed) None seen [HPF] [facility] Urobilinogen Auto test strip (U) [Mass/Vol]Ordered By: Radha Molina on 02-01-2023 Urobilinogen (U) [Mass/Vol] Normal mg/dL Normal [facility] pH Auto test strip (U)Ordere d By: Radha Molina on 02-01-2023 pH (U) 6.0 [pH] 5.0-9.0 [facility] Amphetamine Screen Ql (U)Ord ered By: MARY KAY CANTU on 01-30-2023 Amphetamines Ql (U) Negative Negative [facility] Automated erythrocytes count in urine sediment (number/area)Ordered By: MARY KAY CANTU on 01-30-2023 RBC Auto (Urine sed) [#/Area] 0-1 [HPF] 0-4 [facility] Automated leukocytes count i n urine sediment (number/area)Ordered By: MARY KAY CANTU on 01-30-2023 WBC Auto (Urine sed) [#/Area] 3-4 [HPF] 0-4 [facility] Barbiturates [Presence] in U rine by Screen methodOrdered By: MARY KAY CANTU on 01-30-2023 Barbiturates Screen Ql (U) Negative Negative [facility] Benzodiazepines Screen Ql (U )Ordered By: MARY KAY CANTU on 01-30-2023 Benzodiazepines Ql (U) Negative Negative [facility] Benzoylecgonine [Presence] i n Urine by Screen methodOrdered By: MRAY KAY CANTU on 01-30-2023 Benzoylecgonine Screen Ql (U) Negative Negative [facility] Bilirubin Test strip Ql (U)O rdered By: MARY KAY CANTU on 01-30-2023 Bilirubin Ql (U) Negative Negative [facility] Color Auto (U)Ordered By: LJ CANTU on 01-30-2023 Color (U) Yellow Yellow [facility] Ketones Auto test strip (U) [Mass/Vol]Ordered By: MARY KAY CANTU on 01-30-2023 Ketones (U) [Mass/Vol] Negative Negative [facility] - UrinalysisOrder ed By: MARY KAY CANTU on 01-30-2023 Hyaline casts LM Ql (Urine sed) 0-8 [LPF] 0-8 [facility] Nitrite Test strip Ql (U)Ord ered By: MARY KAY CANTU on 01-30-2023 Nitrite Ql (U) Negative Negative [facility] Opiates [Presence] in Urine by Screen methodOrdered By: MARY KAY CANTU on 01-30-2023 Opiates Screen Ql (U) Negative Negative [facility] Phencyclidine Screen Ql (U)O rdered By: MARY KAY CANTU on 01-30-2023 Phencyclidine Ql (U) Negative Negative [facility] Comment on above: These are unconfirme d results and should not be used for legal purposes. Drug Cut-Off Concentration: AMPH 1000 ng/mL KELLY 200 ng/mL JOE 200 ng/mL COCM 300 ng/mL OP 300 ng/mL PCP 25 ng/mL Protein Auto test strip (U) [Mass/Vol]Ordered By: MARY KAY CANTU on 01-30-2023 Protein (U) [Mass/Vol] Negative Negative [facility] Specific gravity Auto test s trip (U) [Rel density]Ordered By: MARY KAY CANTU on 01-30-2023 Specific gravity (U) [Rel density] 1.017 1.001-1.03 0 [facility] Squamous epithelial cells de tection in urine sediment by light microscopyOrdered By: MARY KAY CANTU on 01-30-2023 Epithelial cells.squamous LM Ql (Urine sed) 1-2 [HPF] 0-2 [facility] Urine bacteria detection by automated methodOrdered By: MARY KAY CANTU on 01-30-2023 Bacteria Auto Ql (U) None seen None Seen [facility] Urine clarity by refractomet ry automatedOrdered By: MARY KAY CANTU on 01-30-2023 Clarity Refractometry automated (U) Clear Clear [facility] Urine glucose measurement by automated test strip (mass/volume)Ordered By: MARY KAY CANTU on 01-30-2023 Glucose Auto test strip (U) [Mass/Vol] Normal mg/dL Normal [facility] Urine hemoglobin detection b y automated test stripOrdered By: MARY KAY CANTU on 01-30-2023 Hemoglobin Auto test strip Ql (U) Negative Negative [facility] Urine leukocyte esterase det ection by automated test stripOrdered By: MARY KAY CANTU on 01-30-2023 Leukocyte esterase Auto test strip Ql (U) 2+ Negative [facility] Urobilinogen Auto test strip (U) [Mass/Vol]Ordered By: MARY KAY CANTU on 01-30-2023 Urobilinogen (U) [Mass/Vol] Normal mg/dL Normal [facility] pH Auto test strip (U)Ordere d By: MARY KAY CANTU on 01-30-2023 pH (U) 6.5 [pH] 5.0-9.0 [facility] S. agalactiae Org specific c x Ql (Unsp spec)Ordered By: Radha Molina on 01-05-2023 Group B Streptococcus Culture Strep. agalactiae Grp B [facility] Serum or plasma glucose tole anbeel 3 hours panelOrdered By: Radha Molina on 12-22-2022 Glucose tolerance 3 hours panel See comment [facility] Comment on above: FASTING 88 Col: 110 09/06 0803 1HR GLU 146 Col: 12/22/22 1017 2HR GLU 126 Col: 12/22/22 1117 3HR GLU 144 Col: 12/22/22 1217 fibronectinOrdered By: Radha Molina on 12-08-2022 Fibronectin. (Vag fld) [Mass/Vol] Negative Negative [facility] Alanine aminotransferase [En zymatic activity/volume] in Serum or PlasmaOrdered By: Nataly Toure on 12-03-2022 ALT [Catalytic activity/Vol] 7 U/L 7-52 [facility] Albumin [Mass/volume] in Ser um or Plasma by Bromocresol green (BCG) dye binding methoOrdered By: Nataly Toure on 12-03-2022 Albumin BCG dye [Mass/Vol] 3.4 g/dL 3.5-5.7 [facility] Alkaline phosphatase [Enzyma tic activity/volume] in Serum or PlasmaOrdered By: Nataly Toure on 12-03-2022 ALP [Catalytic activity/Vol] 79 U/L 34-104 [facility] Aspartate aminotransferase [ Enzymatic activity/volume] in Serum or PlasmaOrdered By: Nataly Toure on 12-03-2022 AST [Catalytic activity/Vol] 9 U/L 13-39 [facility] Basophils Auto (Bld) [#/Vol] Ordered By: Nataly Toure on 12-03-2022 Basophils (Bld) [#/Vol] 0.0 10*3/uL 0.0-0.2 [facility] Basophils/100 WBC Auto (Bld) Ordered By: Nataly Toure on 12-03-2022 Basophils/100 WBC (Bld) 0.1 % . [facility] Bilirubin.total [Mass/volume ] in Serum or PlasmaOrdered By: Nataly Toure on 12-03-2022 Bilirubin [Mass/Vol] 0.2 mg/dL 0.3-1.[address] [facility] Calcium [Mass/volume] in Ser um or PlasmaOrdered By: Nataly Toure on 12-03-2022 Calcium [Mass/Vol] 8.9 mg/dL 8.6-10.3 [facility] Carbon dioxide, total [Moles /volume] in Serum or PlasmaOrdered By: Nataly Toure on 12-03-2022 CO2 [Moles/Vol] 21.9 mmol/L 21.0-31.0 [facility] Chloride [Moles/volume] in S rosa or PlasmaOrdered By: Nataly Toure on 12-03-2022 Chloride [Moles/Vol] 102 mmol/L 98-[address] [facility] Creatinine [Mass/volume] in Serum or PlasmaOrdered By: Nataly Toure on 12-03-2022 Creatinine [Mass/Vol] 0.49 mg/dL 0.60-1.20 [facility] Eosinophils Auto (Bld) [#/Vo l]Ordered By: Nataly Toure on 12-03-2022 Eosinophils (Bld) [#/Vol] 0.0 10*3/uL 0.0-0.45 [facility] Eosinophils/100 WBC Auto (Bl d)Ordered By: Nataly Toure on 12-03-2022 Eosinophils/100 WBC (Bld) 0.3 % . [facility] Erythrocyte distribution wid th Auto (RBC) [Ratio]Ordered By: Nataly Toure on 12-03-2022 Erythrocyte distribution width (RBC) [Ratio] 14.4 % 11.9-15.3 [facility] Globulin Calc (S) [Mass/Vol] Ordered By: Nataly Toure on 12-03-2022 Globulin (S) [Mass/Vol] 3.3 g/dL [facility] Glucose [Mass/volume] in Ser um or PlasmaOrdered By: Nataly Toure on 12-03-2022 Glucose [Mass/Vol] 94 mg/dL 70-100 [facility] Comment on above: ADA recommended refe rence rangeRandom Glucose Reference Range is dependent on time and content of last meal. Glucose of more than 200 mg/dL in a nonstressed, ambulatory subject supports the diagnosis of Diabetes Mellitus. Hematocrit Auto (Bld) [Volum e fraction]Ordered By: Nataly Toure on 12-03-2022 Hematocrit (Bld) [Volume fraction] 33.8 % 34.0-46.4 [facility] Hemoglobin [Mass/volume] in BloodOrdered By: Nataly Toure on 12-03-2022 Hemoglobin (Bld) [Mass/Vol] 11.0 g/dL 11.8-15.4 [facility] Iron [Mass/volume] in Serum or PlasmaOrdered By: Nataly Toure on 12-03-2022 Iron [Mass/Vol] 38 ug/dL 50-212 [facility] Iron binding capacity [Mass/ volume] in Serum or PlasmaOrdered By: Nataly Toure on 12-03-2022 Iron binding capacity [Mass/Vol] 587 ug/dL 255-450 [facility] Iron saturation [Mass Fracti on] in Serum or PlasmaOrdered By: Nataly Toure on 12-03-2022 Iron saturation [Mass fraction] 6.5 % 20-50 [facility] Leukocytes [#/volume] correc kee for nucleated erythrocytes in Blood by Automated counOrdered By: Nataly Toure on 12-03-2022 WBC corrected for nucl RBC Auto (Bld) [#/Vol] 11.2 10*3/uL 3.8-11.6 [facility] Lymphocytes Auto (Bld) [#/Vo l]Ordered By: Nataly Toure on 12-03-2022 Lymphocytes (Bld) [#/Vol] 1.8 10*3/uL 1.00-4.8 [facility] Lymphocytes/100 WBC Auto (Bl d)Ordered By: Nataly Toure on 12-03-2022 Lymphocytes/100 WBC (Bld) 16.0 % . [facility] MCH Auto (RBC) [Entitic mass ]Ordered By: Nataly Toure on 12-03-2022 MCH (RBC) [Entitic mass] 26.0 pg 24.7-34.3 [facility] MCHC Auto (RBC) [Mass/Vol]Or dered By: Nataly Toure on 12-03-2022 MCHC (RBC) [Mass/Vol] 32.5 g/dL 32.0-35.0 [facility] MCV Auto (RBC) [Entitic vol] Ordered By: Nataly Toure on 12-03-2022 MCV (RBC) [Entitic vol] 80.1 fL 80-100 [facility] Magnesium [Mass/volume] in S rosa or PlasmaOrdered By: Nataly Toure on 12-03-2022 Magnesium [Mass/Vol] 1.7 mg/dL 1.9-2.[address] [facility] Monocytes Auto (Bld) [#/Vol] Ordered By: Nataly Toure on 12-03-2022 Monocytes (Bld) [#/Vol] 0.8 10*3/uL 0.0-0.8 [facility] Monocytes/100 WBC Auto (Bld) Ordered By: Nataly Toure on 12-03-2022 Monocytes/100 WBC (Bld) 6.9 % . [facility] Neutrophils Auto (Bld) [#/Vo l]Ordered By: Nataly Toure on 12-03-2022 Neutrophils (Bld) [#/Vol] 8.6 10*3/uL 1.8-7.7 [facility] Neutrophils/100 WBC Auto (Bl d)Ordered By: Nataly Toure on 12-03-2022 Neutrophils/100 WBC (Bld) 76.7 % . [facility] No Panel InformationOrdered By: Nataly Toure on 12-03-2022 Estimated GFR (CKD-EPI) > 60.0 mL/Min [facility] Creatinine Clearance (Chem N/A [facility] Nucleated erythrocytes [Pres ence] in Blood by Automated countOrdered By: Nataly Toure on 12-03-2022 Nucleated RBC Auto Ql (Bld) 0.0 /100{WBC} 0-0.5 [facility] Platelet mean volume Auto (B ld) [Entitic vol]Ordered By: Nataly Toure on 12-03-2022 Platelet mean volume (Bld) [Entitic vol] 9.0 fL 6.3-10.7 [facility] Platelets Auto (Bld) [#/Vol] Ordered By: aNtaly Toure on 12-03-2022 Platelets (Bld) [#/Vol] 205 10*3/uL 150-450 [facility] Potassium [Moles/volume] in Serum or PlasmaOrdered By: Nataly Junesic on 12-03-2022 Potassium [Moles/Vol] 3.8 mmol/L 3.5-5.1 [facility] Protein [Mass/volume] in Ser um or PlasmaOrdered By: Nataly Spasic on 12-03-2022 Protein [Mass/Vol] 6.7 g/dL 6.4-8.9 [facility] RBC Auto (Bld) [#/Vol]Ordere d By: Nataly Junesic on 12-03-2022 RBC (Bld) [#/Vol] 4.22 10*6/uL 3.60-5.00 [facility] Serum or plasma albumin/glob ulin mass ratioOrdered By: Nataly Jerniganc on 12-03-2022 Albumin/Globulin [Mass ratio] 1.0 {ratio} [facility] Serum or plasma anion gap de terminationOrdered By: Nataly Jerniganc on 12-03-2022 Anion gap [Moles/Vol] 17.9 mmol/L 6.0-15.0 [facility] Sodium [Moles/volume] in Ser um or PlasmaOrdered By: Nataly Junesic on 12-03-2022 Sodium [Moles/Vol] 138 mmol/L 136-145 [facility] Thyrotropin [Units/volume] i n Serum or PlasmaOrdered By: Nataly Junesic on 12-03-2022 TSH Qn 2.65 m[IU]/L 0.45-5.33 [facility] Transferrin [Mass/volume] in Serum or PlasmaOrdered By: Nataly Spasic on 12-03-2022 Transferrin [Mass/Vol] 419 mg/dL 203-362 [facility] Urea nitrogen [Mass/volume] in Serum or PlasmaOrdered By: Nataly Spasic on 12-03-2022 Urea nitrogen [Mass/Vol] 11 mg/dL 7-25 [facility] WBC Auto (Bld) [#/Vol]Ordere d By: Nataly Shayleesic on 12-03-2022 WBC (Bld) [#/Vol] 11.2 10*3/uL 3.8-11.6 [facility] Activated partial thrombopla stin time (aPTT) in platelet poor plasma by coagulation aOrdered By: Staci Ortiz on 12-01-2022 aPTT Coag (PPP) [Time] 26.8 s 25.1-36.5 [facility] Comment on above: A hematocrit value g reater than 55% may lead to inaccurate results in coagulation testing. Patients having hematocrit values >55% require a special collection tube for coagulation studies. Please contact the laboratory at [phone] for redraw instructions. Automated erythrocytes count in urine sediment (number/area)Ordered By: Staci Ortiz on 12-01-2022 RBC Auto (Urine sed) [#/Area] 0-1 [HPF] 0-4 [facility] Automated leukocytes count i n urine sediment (number/area)Ordered By: Staci Ortiz on 12-01-2022 WBC Auto (Urine sed) [#/Area] 3-4 [HPF] 0-4 [facility] Basophils Auto (Bld) [#/Vol] Ordered By: Staci Ortiz on 12-01-2022 Basophils (Bld) [#/Vol] 0.0 10*3/uL 0.0-0.2 [facility] Basophils/100 WBC Auto (Bld) Ordered By: Staci Ortiz on 12-01-2022 Basophils/100 WBC (Bld) 0.3 % . [facility] Bilirubin Test strip Ql (U)O rdered By: Staci Ortiz on 12-01-2022 Bilirubin Ql (U) Negative Negative [facility] COVID CepheidOrdered By: Noah Ortiz on 12-01-2022 SARS-CoV-2 (COVID-19) Ab IA Ql Negative Negative [facility] Comment on above: This is a duplicate [email or web address] Xpert Xpress CoV-2/Flu/RSV Plus RNA by RT-PCR result to be used for statistical tracking purpose only. COVID-19 Detected/Not Detect edOrdered By: Staci Ortiz on 12-01-2022 SARS-CoV-2 (COVID-19) RNA SVETLANA+non-probe Ql (Nph) Not detected Not Detecte [facility] Comment on above: This is a duplicate RP2.1 COVID (PCR) result to be used for statistical tracking purpose only. Calcium [Mass/volume] in Ser um or PlasmaOrdered By: Staci Ortiz on 12-01-2022 Calcium [Mass/Vol] 9.1 mg/dL 8.6-10.3 [facility] Carbon dioxide, total [Moles /volume] in Serum or PlasmaOrdered By: Staci Ortiz on 12-01-2022 CO2 [Moles/Vol] 22.4 mmol/L 21.0-31.0 [facility] Chloride [Moles/volume] in S rosa or PlasmaOrdered By: Staci Ortiz on 12-01-2022 Chloride [Moles/Vol] 102 mmol/L 98-[address] [facility] Color Auto (U)Ordered By: Elizabeth Ortiz on 12-01-2022 Color (U) Yellow Yellow [facility] Creatinine [Mass/volume] in Serum or PlasmaOrdered By: Staci Ortiz on 12-01-2022 Creatinine [Mass/Vol] 0.51 mg/dL 0.60-1.20 [facility] Eosinophils Auto (Bld) [#/Vo l]Ordered By: Staci Ortiz on 12-01-2022 Eosinophils (Bld) [#/Vol] 0.0 10*3/uL 0.0-0.45 [facility] Eosinophils/100 WBC Auto (Bl d)Ordered By: Staci Ortiz on 12-01-2022 Eosinophils/100 WBC (Bld) 0.4 % . [facility] Erythrocyte distribution wid th Auto (RBC) [Ratio]Ordered By: Staci Ortiz on 12-01-2022 Erythrocyte distribution width (RBC) [Ratio] 14.5 % 11.9-15.3 [facility] Fibrin D-dimer [Presence] in Platelet poor plasma by Latex agglutinationOrdered By: Staci Ortiz on 12-01-2022 Fibrin D-dimer LA Ql (PPP) 231 ng/mL 0-243 [facility] Comment on above: The reference range [...] coagulation studies. Please contact the laboratory at [phone] for redraw instructions. Glucose [Mass/volume] in Ser um or PlasmaOrdered By: Staci Ortiz on 12-01-2022 Glucose [Mass/Vol] 88 mg/dL 70-100 [facility] Comment on above: ADA recommended refe rence rangeRandom Glucose Reference Range is dependent on time and content of last meal. Glucose of more than 200 mg/dL in a nonstressed, ambulatory subject supports the diagnosis of Diabetes Mellitus. HCG ( test) IA.rapi d Ql (U)Ordered By: Staci Ortiz on 12-01-2022 HCG ( test) Ql (U) Positive [facility] Hematocrit Auto (Bld) [Volum e fraction]Ordered By: Staci Ortiz on 12-01-2022 Hematocrit (Bld) [Volume fraction] 34.2 % 34.0-46.4 [facility] Hemoglobin [Mass/volume] in BloodOrdered By: Staci Ortiz on 12-01-2022 Hemoglobin (Bld) [Mass/Vol] 11.3 g/dL 11.8-15.4 [facility] INR in Platelet poor plasma by Coagulation assayOrdered By: Staci Ortiz on 12-01-2022 INR Coag (PPP) [Relative time] 0.9 {INR} [facility] Comment on above: INR Therapeutic Rang [...] Ketones (U) [Mass/Vol] Negative Negative [facility] - UrinalysisOrder ed By: Staci Ortiz on 12-01-2022 Hyaline casts LM Ql (Urine sed) 0-8 [LPF] 0-8 [facility] Leukocytes [#/volume] correc kee for nucleated erythrocytes in Blood by Automated counOrdered By: Staci Ortiz on 12-01-2022 WBC corrected for nucl RBC Auto (Bld) [#/Vol] 12.1 10*3/uL 3.8-11.6 [facility] Lymphocytes Auto (Bld) [#/Vo l]Ordered By: Staci Ortiz on 12-01-2022 Lymphocytes (Bld) [#/Vol] 1.8 10*3/uL 1.00-4.8 [facility] Lymphocytes/100 WBC Auto (Bl d)Ordered By: Staci Ortiz on 12-01-2022 Lymphocytes/100 WBC (Bld) 14.9 % . [facility] MCH Auto (RBC) [Entitic mass ]Ordered By: Staci Ortiz on 12-01-2022 MCH (RBC) [Entitic mass] 26.4 pg 24.7-34.3 [facility] MCHC Auto (RBC) [Mass/Vol]Or dered By: Staci Ortiz on 12-01-2022 MCHC (RBC) [Mass/Vol] 33.1 g/dL 32.0-35.0 [facility] MCV Auto (RBC) [Entitic vol] Ordered By: Staci Ortiz on 12-01-2022 MCV (RBC) [Entitic vol] 79.7 fL 80-100 [facility] Monocyte distribution width [Entitic volume] in Blood by AutomatedOrdered By: Staci Ortiz on 12-01-2022 Monocyte distribution width Auto (Bld) [Entitic vol] 16.82 % 0.00-20.00 [facility] Monocytes Auto (Bld) [#/Vol] Ordered By: Staci Ortiz on 12-01-2022 Monocytes (Bld) [#/Vol] 0.9 10*3/uL 0.0-0.8 [facility] Monocytes/100 WBC Auto (Bld) Ordered By: Staci Ortiz on 12-01-2022 Monocytes/100 WBC (Bld) 7.6 % . [facility] Natriuretic peptide B [Mass/ Vol]Ordered By: Staci Ortiz on 12-01-2022 Natriuretic peptide B (Bld) [Mass/Vol] 10.0 pg/mL 5-100 [facility] Neutrophils Auto (Bld) [#/Vo l]Ordered By: Staci Ortiz on 12-01-2022 Neutrophils (Bld) [#/Vol] 9.3 10*3/uL 1.8-7.7 [facility] Neutrophils/100 WBC Auto (Bl d)Ordered By: Staci Ortiz on 12-01-2022 Neutrophils/100 WBC (Bld) 76.8 % . [facility] Nitrite Test strip Ql (U)Ord ered By: Staci Ortiz on 12-01-2022 Nitrite Ql (U) Negative Negative [facility] No Panel InformationOrdered By: Staci Ortiz on 12-01-2022 Estimated GFR (CKD-EPI) > 60.0 mL/Min [facility] Creatinine Clearance (Chem 194.78 [facility] Nucleated erythrocytes [Pres ence] in Blood by Automated countOrdered By: Staci Ortiz on 12-01-2022 Nucleated RBC Auto Ql (Bld) 0.0 /100{WBC} 0-0.5 [facility] Platelet mean volume Auto (B ld) [Entitic vol]Ordered By: Staci Ortiz on 12-01-2022 Platelet mean volume (Bld) [Entitic vol] 8.8 fL 6.3-10.7 [facility] Platelets Auto (Bld) [#/Vol] Ordered By: Staci Ortiz on 12-01-2022 Platelets (Bld) [#/Vol] 212 10*3/uL 150-450 [facility] Potassium [Moles/volume] in Serum or PlasmaOrdered By: Staci Ortiz on 12-01-2022 Potassium [Moles/Vol] 3.7 mmol/L 3.5-5.1 [facility] Protein Auto test strip (U) [Mass/Vol]Ordered By: Staci Ortiz on 12-01-2022 Protein (U) [Mass/Vol] Negative Negative [facility] Prothrombin time (PT)Ordered By: Staci Ortiz on 12-01-2022 PT Coag (PPP) [Time] 11.3 s 9.0-12.[address] [facility] Comment on above: A hematocrit value g reater than 55% may lead to inaccurate results in coagulation testing. Patients having hematocrit values >55% require a special collection tube for coagulation studies. Please contact the laboratory at [phone] for redraw instructions. RBC Auto (Bld) [#/Vol]Ordere d By: Staci Ortiz on 12-01-2022 RBC (Bld) [#/Vol] 4.29 10*6/uL 3.60-5.00 [facility] Respiratory pathogens DNA an d RNA panel - Nasopharynx by SVETLANA with non-probe detectionOrdered By: Staci Ortiz on 12-01-2022 Respiratory pathogens DNA and RNA panel SVETLANA+non-probe (Nph) [facility] Respiratory pathogens DNA and RNA panel SVETLANA+non-probe (Nph) [facility] Serum or plasma anion gap de terminationOrdered By: Staci Ortiz on 12-01-2022 Anion gap [Moles/Vol] 13.3 mmol/L 6.0-15.0 [facility] Sodium [Moles/volume] in Ser um or PlasmaOrdered By: Staci Ortiz on 12-01-2022 Sodium [Moles/Vol] 134 mmol/L 136-145 [facility] Specific gravity Auto test s trip (U) [Rel density]Ordered By: Staci Ortiz on 12-01-2022 Specific gravity (U) [Rel density] 1.021 1.001-1.03 0 [facility] Squamous epithelial cells de tection in urine sediment by light microscopyOrdered By: Staci Ortiz on 12-01-2022 Epithelial cells.squamous LM Ql (Urine sed) 5-9 [HPF] 0-2 [facility] Troponin I.cardiac [Mass/vol ume] in Serum or Plasma by Detection limit <= 0.01 ng/Ordered By: Staci Ortiz on 12-01-2022 Troponin I.cardiac DL <= 0.01 ng/mL [Mass/Vol] < 2.3 pg/mL 0.0-15.0 [facility] Urea nitrogen [Mass/volume] in Serum or PlasmaOrdered By: Staci Ortiz on 12-01-2022 Urea nitrogen [Mass/Vol] 9 mg/dL 7-25 [facility] Urine bacteria detection by automated methodOrdered By: Staci Ortiz on 12-01-2022 Bacteria Auto Ql (U) None seen None Seen [facility] Urine clarity by refractomet ry automatedOrdered By: Staci Ortiz on 12-01-2022 Clarity Refractometry automated (U) Cloudy Clear [facility] Urine glucose measurement by automated test strip (mass/volume)Ordered By: Staci Ortiz on 12-01-2022 Glucose Auto test strip (U) [Mass/Vol] Normal mg/dL Normal [facility] Urine hemoglobin detection b y automated test stripOrdered By: Staci Ortiz on 12-01-2022 Hemoglobin Auto test strip Ql (U) Negative Negative [facility] Urine leukocyte esterase det ection by automated test stripOrdered By: Staci Ortiz on 12-01-2022 Leukocyte esterase Auto test strip Ql (U) 1+ Negative [facility] Urobilinogen Auto test strip (U) [Mass/Vol]Ordered By: Staci Ortiz on 12-01-2022 Urobilinogen (U) [Mass/Vol] Normal mg/dL Normal [facility] WBC Auto (Bld) [#/Vol]Ordere d By: Staci Ortiz on 12-01-2022 WBC (Bld) [#/Vol] 12.1 10*3/uL 3.8-11.6 [facility] pH Auto test strip (U)Ordere d By: Staci Ortiz on 12-01-2022 pH (U) 6.5 [pH] 5.0-9.0 [facility] Amphetamine Screen Ql (U)Ord ered By: TELMA Smith on 11-20-2022 Amphetamines Ql (U) Negative Negative [facility] Barbiturates [Presence] in U rine by Screen methodOrdered By: TELMA Smith on 11-20-2022 Barbiturates Screen Ql (U) Negative Negative [facility] Benzodiazepines Screen Ql (U )Ordered By: TELMA Smith on 11-20-2022 Benzodiazepines Ql (U) Negative Negative [facility] Benzoylecgonine [Presence] i n Urine by Screen methodOrdered By: TELMA Smith on 11-20-2022 Benzoylecgonine Screen Ql (U) Negative Negative [facility] Bilirubin Test strip Ql (U)O rdered By: TELMA Smith on 11-20-2022 Bilirubin Ql (U) Negative Negative [facility] Color Auto (U)Ordered By: MD DESEAN Smith on 11-20-2022 Color (U) Yellow Yellow [facility] Ketones Auto test strip (U) [Mass/Vol]Ordered By: TELMA Smith on 11-20-2022 Ketones (U) [Mass/Vol] Trace Negative [facility] Nitrite Test strip Ql (U)Ord ered By: TELMA Smith on 11-20-2022 Nitrite Ql (U) Negative Negative [facility] Opiates [Presence] in Urine by Screen methodOrdered By: TELMA Smith on 11-20-2022 Opiates Screen Ql (U) Negative Negative [facility] Phencyclidine Screen Ql (U)O rdered By: TELMA Smith on 11-20-2022 Phencyclidine Ql (U) Negative Negative [facility] Comment on above: These are unconfirme d results and should not be used for legal purposes. Drug Cut-Off Concentration: AMPH 1000 ng/mL KELLY 200 ng/mL JOE 200 ng/mL COCM 300 ng/mL OP 300 ng/mL PCP 25 ng/mL Protein Auto test strip (U) [Mass/Vol]Ordered By: TELMA Smith on 11-20-2022 Protein (U) [Mass/Vol] Negative Negative [facility] Specific gravity Auto test s trip (U) [Rel density]Ordered By: TELMA Smith on 11-20-2022 Specific gravity (U) [Rel density] 1.025 1.001-1.03 0 [facility] Urine clarity by refractomet ry automatedOrdered By: TELMA Smith on 11-20-2022 Clarity Refractometry automated (U) Clear Clear [facility] Urine glucose measurement by automated test strip (mass/volume)Ordered By: SHELLIE Smith on 11-20-2022 Glucose Auto test strip (U) [Mass/Vol] Normal mg/dL Normal [facility] Urine hemoglobin detection b y automated test stripOrdered By: TELMA Smith on 11-20-2022 Hemoglobin Auto test strip Ql (U) Negative Negative [facility] Urine leukocyte esterase det ection by automated test stripOrdered By: TELMA Smith on 11-20-2022 Leukocyte esterase Auto test strip Ql (U) Negative Negative [facility] Urobilinogen Auto test strip (U) [Mass/Vol]Ordered By: TELMA Smith on 11-20-2022 Urobilinogen (U) [Mass/Vol] Normal mg/dL Normal [facility] pH Auto test strip (U)Ordere d By: TELMA Smith on 11-20-2022 pH (U) 6.5 [pH] 5.0-9.0 [facility] Amphetamine Screen Ql (U)Ord ered By: MARY KAY CANTU on 11-19-2022 Amphetamines Ql (U) Negative Negative [facility] Barbiturates [Presence] in U rine by Screen methodOrdered By: MARY KAY CANTU on 11-19-2022 Barbiturates Screen Ql (U) Negative Negative [facility] Benzodiazepines Screen Ql (U )Ordered By: MARY KAY CANTU on 11-19-2022 Benzodiazepines Ql (U) Negative Negative [facility] Benzoylecgonine [Presence] i n Urine by Screen methodOrdered By: MARY KAY CANTU on 11-19-2022 Benzoylecgonine Screen Ql (U) Negative Negative [facility] Bilirubin Test strip Ql (U)O rdered By: MARY KAY CANTU on 11-19-2022 Bilirubin Ql (U) Negative Negative [facility] Color Auto (U)Ordered By: LJ CANTU on 11-19-2022 Color (U) Yellow Yellow [facility] fibronectinOrdered By: MARY KAY CANTU on 11-19-2022 Fibronectin. (Vag fld) [Mass/Vol] Positive Negative [facility] Ketones Auto test strip (U) [Mass/Vol]Ordered By: MARY KAY CANTU on 11-19-2022 Ketones (U) [Mass/Vol] Trace Negative [facility] Nitrite Test strip Ql (U)Ord ered By: MARY KAY CANTU on 11-19-2022 Nitrite Ql (U) Negative Negative [facility] Opiates [Presence] in Urine by Screen methodOrdered By: MARY KAY CANTU on 11-19-2022 Opiates Screen Ql (U) Negative Negative [facility] Phencyclidine Screen Ql (U)O rdered By: MARY KAY CANTU on 11-19-2022 Phencyclidine Ql (U) Negative Negative [facility] Comment on above: These are unconfirme d results and should not be used for legal purposes. Drug Cut-Off Concentration: AMPH 1000 ng/mL KELLY 200 ng/mL JOE 200 ng/mL COCM 300 ng/mL OP 300 ng/mL PCP 25 ng/mL Protein Auto test strip (U) [Mass/Vol]Ordered By: MARY KAY CANTU on 11-19-2022 Protein (U) [Mass/Vol] Negative Negative [facility] Specific gravity Auto test s trip (U) [Rel density]Ordered By: MARY KAY CANTU on 11-19-2022 Specific gravity (U) [Rel density] 1.017 1.001-1.03 0 [facility] Urine clarity by refractomet ry automatedOrdered By: MARY KAY CANTU on 11-19-2022 Clarity Refractometry automated (U) Clear Clear [facility] Urine glucose measurement by automated test strip (mass/volume)Ordered By: MARY KAY CANTU on 11-19-2022 Glucose Auto test strip (U) [Mass/Vol] Normal mg/dL Normal [facility] Urine hemoglobin detection b y automated test stripOrdered By: MARY KAY CANTU on 11-19-2022 Hemoglobin Auto test strip Ql (U) Negative Negative [facility] Urine leukocyte esterase det ection by automated test stripOrdered By: MARY KAY CANTU on 11-19-2022 Leukocyte esterase Auto test strip Ql (U) Negative Negative [facility] Urobilinogen Auto test strip (U) [Mass/Vol]Ordered By: MARY KAY CANTU on 11-19-2022 Urobilinogen (U) [Mass/Vol] Normal mg/dL Normal [facility] pH Auto test strip (U)Ordere d By: MARY KAY CANTU on 11-19-2022 pH (U) 7.5 [pH] 5.0-9.0 [facility] US PREG TVon 07-14-2022 US PREG [...] PETRA SALCIDO Date: 2022-07-14 00:14 Normal [facility] AMYLASEon 07-13-2022 Amylase [Catalytic activity/Vol] 43 U/L Normal 25-115 [facility] Comment on above: Performed By: #### C BC #### [facility] [address] [place] [address] Dr. Moris Winter CBC AUTO DIFFon 07-13-2022 BASO # 0.0 103/ul Normal 0.0-0.1 [facility] Comment on above: Performed By: #### C BC #### [facility] [address] [place] [address] Dr. Moris Winter Basophils/100 WBC (Bld) 0.2 % Normal 0.2-2.0 [facility] Comment on above: Performed By: #### C BC #### [facility] [address] [place] [address] Dr. Moris Winter EO # 0.1 103/ul Normal 0.0-0.7 [facility] Comment on above: Performed By: #### C BC #### [facility] [address] [place] [address] Dr. Moris Winter Eosinophils/100 WBC (Bld) 1.2 % Normal 0.9-7.0 [facility] Comment on above: Performed By: #### C BC #### [facility] [address] [place] [address] Dr. Moris Winter Erythrocyte distribution width (RBC) [Ratio] 13.8 % Normal 11.0-15.0 [facility] Comment on above: Performed By: #### C BC #### [facility] [address] [place] [address] Dr. Moris Winter Hematocrit (Bld) [Volume fraction] 36.6 % Normal 36.0-48.0 [facility] Comment on above: Performed By: #### C BC #### [facility] [address] [place] [address] Dr. Moris Winter Hemoglobin (Bld) [Mass/Vol] 12.3 g/dL Normal 12.0-16.0 [facility] Comment on above: Performed By: #### C BC #### [facility] [address] [place] [address] Dr. Moris Winter IG # 0.03 10e3/ul Normal 0.00-0.03 [facility] Comment on above: Performed By: #### C BC #### [facility] [address] [place] [address] Dr. Moris Winter IG % 0.3 % Normal 0.0-0.5 [facility] Comment on above: Performed By: #### C BC #### [facility] [address] [place] [address] Dr. Moris Winter LYMPH # 2.1 103/ul Normal 1.2-3.8 [facility] Comment on above: Performed By: #### C BC #### [facility] [address] [place] [address] Dr. Moris Winter Lymphocytes/100 WBC (Bld) 24.3 % Normal 20.5-60.0 [facility] Comment on above: Performed By: #### C BC #### [facility] [address] [place] [address] Dr. Moris Winter MANUAL DIFF REQ NO Normal [facility] Comment on above: Performed By: #### C BC #### [facility] [address] [place] [address] Dr. Moris Winter MCH (RBC) [Entitic mass] 27.5 pg Normal 26.7-34.0 [facility] Comment on above: Performed By: #### C BC #### [facility] [address] [place] [address] Dr. Moris Winter MCHC (RBC) [Mass/Vol] 33.6 g/dL Normal 29.9-35.2 [facility] Comment on above: Performed By: #### C BC #### [facility] [address] [place] [address] Dr. Moris Winter MCV (RBC) [Entitic vol] 81.7 fL Normal 81.0-99.0 [facility] Comment on above: Performed By: #### C BC #### [facility] [address] [place] [address] Dr. Moris Winter MONO # 0.7 103/ul Normal 0.3-0.8 [facility] Comment on above: Performed By: #### C BC #### [facility] [address] [place] [address] Dr. Moris Winter Monocytes/100 WBC (Bld) 7.8 % Normal 1.7-12.0 [facility] Comment on above: Performed By: #### C BC #### [facility] [address] [place] [address] Dr. Moris Winter NEUT # 5.8 103/ul Normal 1.4-6.5 [facility] Comment on above: Performed By: #### C BC #### [facility] [address] [place] [address] Dr. Moris Winter Neutrophils/100 WBC (Bld) 66.2 % Normal 43.0-75.0 [facility] Comment on above: Performed By: #### C BC #### [facility] [address] [place] [address] Dr. Moris Winter Platelet mean volume (Bld) [Entitic vol] 10.2 fL Normal 9.5-13.5 [facility] Comment on above: Performed By: #### C BC #### [facility] [address] [place] [address] Dr. Moris Winter PLT 301 103/ul Normal 150-450 [facility] Comment on above: Performed By: #### C BC #### [facility] [address] [place] [address] Dr. Moris Winter RBC 4.48 106/ul Normal 4.20-5.40 [facility] Comment on above: Performed By: #### C BC #### [facility] [address] [place] [address] Dr. Moris Winter WBC 8.7 103/ul Normal 4.0-11.0 [facility] Comment on above: Performed By: #### C BC #### [facility] [address] [place] [address] Dr. Moris Winter ER URINE PROFILEon 3 Bilirubin Ql (U) Negative Normal NEGATIVE [facility] Comment on above: Performed By: #### P REGU #### [facility] [address] [place] [address] Dr. Moris Winter Clarity (U) CLEAR Normal CLEAR [facility] Comment on above: Performed By: #### P REGU #### [facility] [address] [place] [address] Dr. Moris Winter Color (U) LT. YELLOW Normal YELLOW [facility] Comment on above: Performed By: #### P REGU #### [facility] [address] [place] [address] Dr. Moris Winter ERUABNER A micrscopic examina tion will be performed if indicated. Normal [facility] Comment on above: Performed By: #### P REGU #### [facility] [address] [place] [address] Dr. Moris Winter Glucose Ql (U) Negative Normal NEGATIVE [facility] Comment on above: Performed By: #### P REGU #### [facility] [address] [place] [address] Dr. Moris Winter Hemoglobin Ql (U) Negative Normal NEGATIVE [facility] Comment on above: Performed By: #### P REGU #### [facility] [address] [place] [address] Dr. Moris Winter Ketones Ql (U) TRACE Abnormal NEGATIVE [facility] Comment on above: Performed By: #### P REGU #### [facility] [address] [place] [address] Dr. Moris Winter LEUKOCYTES TRACE Abnormal NEGATIVE [facility] Comment on above: Performed By: #### P REGU #### [facility] [address] [place] [address] Dr. Moris Winter Nitrite Ql (U) Negative Normal NEGATIVE [facility] Comment on above: Performed By: #### P REGU #### [facility] [address] [place] [address] Dr. Moris Winter pH (U) 7.0 [pH] Normal 5-9 [facility] Comment on above: Performed By: #### P REGU #### [facility] [address] [place] [address] Dr. Moris Winter SPEC GRAVITY 1.020 Normal 1.005-<=1. 025 [facility] Comment on above: Performed By: #### P REGU #### [facility] [address] [place] [address] Dr. Moris Winter UA PROTEIN Negative Normal NEGATIVE/ TRACE [facility] Comment on above: Performed By: #### P REGU #### [facility] [address] [place] [address] Dr. Moris Winter UR MICRO IND INDICATED Normal [facility] Comment on above: Performed By: #### P REGU #### [facility] [address] [place] [address] Dr. Moris Winter Urobilinogen Qn (U) 0.2 {Marcin'U}/dL Normal 0.2 - 1. 0 [facility] Comment on above: Performed By: #### P REGU #### [facility] [address] [place] [address] Dr. Moris Winter LIPASEon 07-13-2022 Lipase [Catalytic activity/Vol] 204.0 U/L Normal 73.0-393.0 [facility] Comment on above: Performed By: #### C BC #### [facility] [address] [place] [address] Dr. Moris Winter PREG QUANT HCGon 07-13-2022 HCG QUANT 1455 mIU/mL Normal [facility] Comment on above: Performed By: #### P REGU #### [facility] [address] [place] [address] Dr. Moris Winter HCG RANGE SEE BELOW Normal [facility] Comment on above: Result Comment: 5-50 0.2-1 WEEK 50-500 1-2 WEEKS 100-5,000 2-3 WEEKS 500-10,000 3-4 WEEKS 1,000-50,000 4-5 WEEKS 10,000-100,000 5-6 WEEKS 15,000-200,000 6-8 WEEKS 10,000-100,000 2-3 MONTHS Performed By: #### P REGU #### [facility] [address] [place] [address] Dr. Moris Winter URon 07-13-2022 , QUAL Positive Abnormal NEGATIVE [facility] Comment on above: Performed By: #### P REGU #### [facility] [address] [place] [address] Dr. Moris Winter PROF 14(COMP METB)on 023 Albumin [Mass/Vol] 3.3 g/dL Critically low 3.4-5.0 [facility] Comment on above: Performed By: #### C BC #### [facility] [address] [place] [address] Dr. Moris Winter Albumin/Globulin [Mass ratio] 0.7 {ratio} Normal [facility] Comment on above: Performed By: #### C BC #### [facility] [address] [place] [address] Dr. Moris Winter ALP [Catalytic activity/Vol] 86 U/L Normal 46-116 [facility] Comment on above: Performed By: #### C BC #### [facility] [address] [place] [address] Dr. Moris Winter ALT [Catalytic activity/Vol] 16 U/L Normal 14-59 [facility] Comment on above: Performed By: #### C BC #### [facility] [address] [place] [address] Dr. Moris Winter Anion gap [Moles/Vol] 14.9 mmol/L Normal [facility] Comment on above: Performed By: #### C BC #### [facility] [address] [place] [address] Dr. Moris Winter AST [Catalytic activity/Vol] 12 U/L Critically low 15-37 [facility] Comment on above: Performed By: #### C BC #### [facility] [address] [place] [address] Dr. Moris Winter Bilirubin [Mass/Vol] 0.1 mg/dL Critically low 0.2-1.0 [facility] Comment on above: Performed By: #### C BC #### [facility] [address] [place] [address] Dr. Moris Winter Calcium [Mass/Vol] 9.3 mg/dL Normal 8.5-10.1 [facility] Comment on above: Performed By: #### C BC #### [facility] [address] [place] [address] Dr. Moris Winter Chloride [Moles/Vol] 103 mmol/L Normal 98-107 [facility] Comment on above: Performed By: #### C BC #### [facility] [address] [place] [address] Dr. Moris Winter CO2 [Moles/Vol] 25.4 mmol/L Normal 21.0-32.0 [facility] Comment on above: Performed By: #### C BC #### [facility] [address] [place] [address] Dr. Moris Winter Creatinine [Mass/Vol] 0.80 mg/dL Normal 0.55-1.02 [facility] Comment on above: Performed By: #### C BC #### [facility] [address] [place] [address] Dr. Moris Winter EGFR-AF SAMMARINESE >60 Normal >=60 [facility] Comment on above: Performed By: #### C BC #### [facility] [address] [place] [address] Dr. Moris Winter EGFR-NON AF SAMMARINESE >60 Normal >=60 [facility] Comment on above: Performed By: #### C BC #### [facility] [address] [place] [address] Dr. Moris Winter Globulin (S) [Mass/Vol] 4.6 g/dL Normal [facility] Comment on above: Performed By: #### C BC #### [facility] [address] [place] [address] Dr. Moris Winter Glucose [Mass/Vol] 111 mg/dL Critically high 74-106 [facility] Comment on above: Performed By: #### C BC #### [facility] [address] [place] [address] Dr. Moris Winter Potassium [Moles/Vol] 3.3 mmol/L Critically low 3.5-5.1 [facility] Comment on above: Performed By: #### C BC #### [facility] [address] [place] [address] Dr. Moris Winter Protein [Mass/Vol] 7.9 g/dL Normal 6.4-8.2 [facility] Comment on above: Performed By: #### C BC #### [facility] [address] [place] [address] Dr. Moris Winter Sodium [Moles/Vol] 140 mmol/L Normal 136-145 [facility] Comment on above: Performed By: #### C BC #### [facility] [address] [place] [address] Dr. Moris Winter Urea nitrogen [Mass/Vol] 10.0 mg/dL Normal 7.0-18.0 [facility] Comment on above: Performed By: #### C BC #### [facility] [address] [place] [address] Dr. Moris Winter Urea nitrogen/Creatinine [Mass ratio] 12.5 mg/mg Normal [facility] Comment on above: Performed By: #### C BC #### [facility] [address] [place] [address] Dr. Moris Winter URINE MICROSCOPIC ONLYon BACTERIA TRACE Abnormal NONE SEEN [facility] Comment on above: Performed By: #### P REGU #### [facility] [address] [place] [address] Dr. Moris Winter Bacteria identified Cx Nom (U) NOT INDICATED Normal [facility] Comment on above: Performed By: #### P REGU #### [facility] [address] [place] [address] Dr. Moris Winter CAST NONE SEEN Normal NONE SEEN [facility] Comment on above: Performed By: #### P REGU #### [facility] [address] [place] [address] Dr. Moris Winter Crystals LM Nom (Urine sed) NONE SEEN Normal NONE SEEN [facility] Comment on above: Performed By: #### P REGU #### [facility] [address] [address] [address] Moris Winter Epithelial cells LM Ql (Urine sed) FEW Abnormal NONE SEEN /RARE [facility] Comment on above: Performed By: #### P REGU #### [facility] [address] [address] [address] Moris Winter MUCOUS NONE SEEN Normal NONE SEEN [facility] Comment on above: Performed By: #### P REGU #### [facility] [address] [address] [address] Moris Winter RBC 0-2 Normal 0-2 [facility] Comment on above: Performed By: #### P REGU #### [facility] [address] [place] [address] Dr. Moris Winter WBC 2-5 Abnormal NONE SEEN [facility] Comment on above: Performed By: #### P REGU #### [facility] [address] [place] [address] Dr. Moris Winter Cholesterol [Mass/volume] in Serum or PlasmaOrdered By: Nataly Toure on 06-16-2022 Cholesterol [Mass/Vol] 189 mg/dL 140-200 [facility] Comment on above: Chol less than 200 m g/dl low riskChol 201-239 mg/dl borderline riskChol 240 mg/dl and greater high risk Cholesterol in LDL Calc [Mas s/Vol]Ordered By: Nataly Toure on 06-16-2022 Cholesterol in LDL [Mass/Vol] 84 mg/dL 0-100 [facility] Comment on above: LDL ATP III CLASSIFI CATIONLDL less than 100 mg/dL OptimalLDL 100-129 mg/dL Near or above optimalLDL 130-159 mg/dL Borderline highLDL 160-189 mg/dL HighLDL greater than 189 mg/dL Very high Cholesterol in VLDL Calc [Ma ss/Vol]Ordered By: Nataly Toure on 06-16-2022 Cholesterol in VLDL [Mass/Vol] 54 mg/dL [facility] Serum or plasma high density lipoprotein (HDL) cholesterol measurementOrdered By: Nataly Toure on 06-16-2022 Cholesterol in HDL [Mass/Vol] 50 mg/dL 35-85 [facility] Comment on above: HDL CHOL ATP-III CLA SSIFICATION Cardiovascular RiskHDL > or equal to 60 mg/dL LOWHDL < 40 mg/dL HIGH Serum or plasma total choles terol/high density lipoprotein (HDL) cholesterol mass ratOrdered By: Nataly Toure on 06-16-2022 Cholesterol.total/Chol esterol in HDL [Mass ratio] 3.8 {ratio} <5.0 [facility] Triglyceride [Mass/volume] i n Serum or PlasmaOrdered By: Nataly Toure on 06-16-2022 Triglyceride [Mass/Vol] 273 mg/dL 0-149 [facility] Comment on above: TRIG ATP III CLASSIF ICATIONTRIG less than 150 mg/dL NormalTRIG 150-199 mg/dL Borderline highTRIG 200-500 mg/dL High TRIG greater than 500 mg/dL Very highStandard traceable to the Center for Disease Conrtrol and Prevention (CDC) test method. Alanine aminotransferase [En zymatic activity/volume] in Serum or PlasmaOrdered By: Nataly Toure on 06-04-2022 ALT [Catalytic activity/Vol] 7 U/L 7-52 [facility] Albumin [Mass/volume] in Ser um or Plasma by Bromocresol green (BCG) dye binding methoOrdered By: Nataly Toure on 06-04-2022 Albumin BCG dye [Mass/Vol] 3.8 g/dL 3.5-5.7 [facility] Alkaline phosphatase [Enzyma tic activity/volume] in Serum or PlasmaOrdered By: Nataly Toure on 06-04-2022 ALP [Catalytic activity/Vol] 78 U/L 34-104 [facility] Amylase [Enzymatic activity/ volume] in Serum or PlasmaOrdered By: Nataly Toure on 06-04-2022 Amylase [Catalytic activity/Vol] 29 U/L 29-103 [facility] Aspartate aminotransferase [ Enzymatic activity/volume] in Serum or PlasmaOrdered By: Nataly Toure on 06-04-2022 AST [Catalytic activity/Vol] 10 U/L 13-39 [facility] Basophils Auto (Bld) [#/Vol] Ordered By: Nataly Toure on 06-04-2022 Basophils (Bld) [#/Vol] 0.1 10*3/uL 0.0-0.2 [facility] Basophils/100 WBC Auto (Bld) Ordered By: Nataly Toure on 06-04-2022 Basophils/100 WBC (Bld) 1.4 % . [facility] Bilirubin.total [Mass/volume ] in Serum or PlasmaOrdered By: Nataly Toure on 06-04-2022 Bilirubin [Mass/Vol] 0.3 mg/dL 0.3-1.[address] [facility] Calcium [Mass/volume] in Ser um or PlasmaOrdered By: Nataly Toure on 06-04-2022 Calcium [Mass/Vol] 9.3 mg/dL 8.6-10.3 [facility] Carbon dioxide, total [Moles /volume] in Serum or PlasmaOrdered By: Nataly Toure on 06-04-2022 CO2 [Moles/Vol] 29.6 mmol/L 21.0-31.0 [facility] Chloride [Moles/volume] in S rosa or PlasmaOrdered By: Nataly Toure on 06-04-2022 Chloride [Moles/Vol] 99 mmol/L 98-[address] [facility] Creatinine [Mass/volume] in Serum or PlasmaOrdered By: Nataly Toure on 06-04-2022 Creatinine [Mass/Vol] 0.69 mg/dL 0.60-1.20 [facility] Eosinophils Auto (Bld) [#/Vo l]Ordered By: Nataly Toure on 06-04-2022 Eosinophils (Bld) [#/Vol] 0.2 10*3/uL 0.0-0.45 [facility] Eosinophils/100 WBC Auto (Bl d)Ordered By: Nataly Toure on 06-04-2022 Eosinophils/100 WBC (Bld) 1.8 % . [facility] Erythrocyte distribution wid th Auto (RBC) [Ratio]Ordered By: Nataly Toure on 06-04-2022 Erythrocyte distribution width (RBC) [Ratio] 14.6 % 11.9-15.3 [facility] Ferritin [Mass/volume] in Se rum or PlasmaOrdered By: Nataly Toure on 06-04-2022 Ferritin [Mass/Vol] 12.7 ng/mL 11.0-306.8 [facility] Globulin Calc (S) [Mass/Vol] Ordered By: Nataly Toure on 06-04-2022 Globulin (S) [Mass/Vol] 3.6 g/dL [facility] Glucose [Mass/volume] in Ser um or PlasmaOrdered By: Nataly Toure on 06-04-2022 Glucose [Mass/Vol] 103 mg/dL 70-100 [facility] Comment on above: ADA recommended refe rence rangeRandom Glucose Reference Range is dependent on time and content of last meal. Glucose of more than 200 mg/dL in a nonstressed, ambulatory subject supports the diagnosis of Diabetes Mellitus. Hematocrit Auto (Bld) [Volum e fraction]Ordered By: Nataly Toure on 06-04-2022 Hematocrit (Bld) [Volume fraction] 38.2 % 34.0-46.4 [facility] Hemoglobin [Mass/volume] in BloodOrdered By: Ntaaly Toure on 06-04-2022 Hemoglobin (Bld) [Mass/Vol] 12.7 g/dL 11.8-15.4 [facility] Leukocytes [#/volume] correc kee for nucleated erythrocytes in Blood by Automated counOrdered By: Nataly Toure on 06-04-2022 WBC corrected for nucl RBC Auto (Bld) [#/Vol] 8.7 10*3/uL 3.8-11.6 [facility] Lipase [Enzymatic activity/v olume] in Serum or PlasmaOrdered By: Nataly Toure on 06-04-2022 Lipase [Catalytic activity/Vol] 38.0 U/L 11.0-82.0 [facility] Lymphocytes Auto (Bld) [#/Vo l]Ordered By: Nataly Toure on 06-04-2022 Lymphocytes (Bld) [#/Vol] 1.7 10*3/uL 1.00-4.8 [facility] Lymphocytes/100 WBC Auto (Bl d)Ordered By: Nataly Toure on 06-04-2022 Lymphocytes/100 WBC (Bld) 19.7 % . [facility] MCH Auto (RBC) [Entitic mass ]Ordered By: Nataly Toure on 06-04-2022 MCH (RBC) [Entitic mass] 26.8 pg 24.7-34.3 [facility] MCHC Auto (RBC) [Mass/Vol]Or dered By: Nataly Toure on 06-04-2022 MCHC (RBC) [Mass/Vol] 33.2 g/dL 32.0-35.0 [facility] MCV Auto (RBC) [Entitic vol] Ordered By: Nataly Toure on 06-04-2022 MCV (RBC) [Entitic vol] 80.7 fL 80-100 [facility] Monocytes Auto (Bld) [#/Vol] Ordered By: Nataly Toure on 06-04-2022 Monocytes (Bld) [#/Vol] 0.5 10*3/uL 0.0-0.8 [facility] Monocytes/100 WBC Auto (Bld) Ordered By: Nataly Toure on 06-04-2022 Monocytes/100 WBC (Bld) 6.1 % . [facility] Neutrophils Auto (Bld) [#/Vo l]Ordered By: Nataly Toure on 06-04-2022 Neutrophils (Bld) [#/Vol] 6.2 10*3/uL 1.8-7.7 [facility] Neutrophils/100 WBC Auto (Bl d)Ordered By: Nataly Toure on 06-04-2022 Neutrophils/100 WBC (Bld) 71.0 % . [facility] No Panel InformationOrdered By: Nataly Toure on 06-04-2022 Estimated GFR (CKD-EPI) > 60.0 mL/Min [facility] Creatinine Clearance (Chem N/A [facility] Nucleated erythrocytes [Pres ence] in Blood by Automated countOrdered By: Nataly Toure on 06-04-2022 Nucleated RBC Auto Ql (Bld) 0.2 /100{WBC} 0-0.5 [facility] Platelet mean volume Auto (B ld) [Entitic vol]Ordered By: Nataly Toure on 06-04-2022 Platelet mean volume (Bld) [Entitic vol] 10.2 fL 6.3-10.7 [facility] Platelets Auto (Bld) [#/Vol] Ordered By: Nataly Toure on 06-04-2022 Platelets (Bld) [#/Vol] 245 10*3/uL 150-450 [facility] Potassium [Moles/volume] in Serum or PlasmaOrdered By: Nataly Toure on 06-04-2022 Potassium [Moles/Vol] 4.5 mmol/L 3.5-5.1 [facility] Protein [Mass/volume] in Ser um or PlasmaOrdered By: Nataly Toure on 06-04-2022 Protein [Mass/Vol] 7.4 g/dL 6.4-8.9 [facility] RBC Auto (Bld) [#/Vol]Ordere d By: Nataly Toure on 06-04-2022 RBC (Bld) [#/Vol] 4.73 10*6/uL 3.60-5.00 [facility] Serum or plasma albumin/glob ulin mass ratioOrdered By: Nataly Toure on 06-04-2022 Albumin/Globulin [Mass ratio] 1.1 {ratio} [facility] Serum or plasma anion gap de terminationOrdered By: Nataly Toure on 06-04-2022 Anion gap [Moles/Vol] 10.9 mmol/L 6.0-15.0 [facility] Serum or plasma insulin nikita urement (units/volume)Ordered By: Nataly Toure on 06-04-2022 Insulin Qn 128.0 u[iU]/mL 2.6-24.9 [facility] Comment on above: Performed at: - [email or web address] [id number] Director: Sam Lopez PhD, Phone: [phone] Sodium [Moles/volume] in Ser um or PlasmaOrdered By: Nataly Toure on 06-04-2022 Sodium [Moles/Vol] 135 mmol/L 136-145 [facility] Urea nitrogen [Mass/volume] in Serum or PlasmaOrdered By: Nataly Toure on 06-04-2022 Urea nitrogen [Mass/Vol] 9 mg/dL 7-25 [facility] WBC Auto (Bld) [#/Vol]Ordere d By: Nataly Toure on 06-04-2022 WBC (Bld) [#/Vol] 8.7 10*3/uL 3.8-11.6 [facility] AMYLASEon 06-03-2022 Amylase [Catalytic activity/Vol] 37 U/L Normal 25-115 [facility] Comment on above: Performed By: #### L IPA, CMP, KIM #### [facility] [address] [place] [address] Dr. Moris Winter CBC AUTO DIFFon 06-03-2022 BASO # 0.0 103/ul Normal 0.0-0.1 [facility] Comment on above: Performed By: #### C BC #### [facility] [address] [place] [address] Dr. Moris Winter Basophils/100 WBC (Bld) 0.1 % Critically low 0.2-2.0 [facility] Comment on above: Performed By: #### C BC #### [facility] [address] [address] [address] Moirs Winter EO # 0.1 103/ul Normal 0.0-0.7 [facility] Comment on above: Performed By: #### C BC #### [facility] [address] [place] [address] Dr. Moris Winter Eosinophils/100 WBC (Bld) 1.6 % Normal 0.9-7.0 [facility] Comment on above: Performed By: #### C BC #### [facility] [address] [place] [address] Dr. Moris Winter Erythrocyte distribution width (RBC) [Ratio] 13.5 % Normal 11.0-15.0 [facility] Comment on above: Performed By: #### C BC #### [facility] [address] [place] [address] Dr. Moris Winter Hematocrit (Bld) [Volume fraction] 36.3 % Normal 36.0-48.0 [facility] Comment on above: Performed By: #### C BC #### [facility] [address] [place] [address] Dr. Moris Winter Hemoglobin (Bld) [Mass/Vol] 11.8 g/dL Critically low 12.0-16.0 [facility] Comment on above: Performed By: #### C BC #### [facility] [address] [place] [address] Dr. Moris Winter IG # 0.03 10e3/ul Normal 0.00-0.03 [facility] Comment on above: Performed By: #### C BC #### [facility] [address] [place] [address] Dr. Moris Winter IG % 0.4 % Normal 0.0-0.5 [facility] Comment on above: Performed By: #### C BC #### [facility] [address] [place] [address] Dr. Moris Winter LYMPH # 2.5 103/ul Normal 1.2-3.8 [facility] Comment on above: Performed By: #### C BC #### [facility] [address] [place] [address] Dr. Moris Winter Lymphocytes/100 WBC (Bld) 33.2 % Normal 20.5-60.0 [facility] Comment on above: Performed By: #### C BC #### [facility] [address] [place] [address] Dr. Moris Winter MANUAL DIFF REQ NO Normal [facility] Comment on above: Performed By: #### C BC #### [facility] [address] [place] [address] Dr. Moris Winter MCH (RBC) [Entitic mass] 26.2 pg Critically low 26.7-34.0 [facility] Comment on above: Performed By: #### C BC #### [facility] [address] [place] [address] Dr. Moris Winter MCHC (RBC) [Mass/Vol] 32.5 g/dL Normal 29.9-35.2 [facility] Comment on above: Performed By: #### C BC #### [facility] [address] [place] [address] Dr. Moris Winter MCV (RBC) [Entitic vol] 80.7 fL Critically low 81.0-99.0 [facility] Comment on above: Performed By: #### C BC #### [facility] [address] [place] [address] Dr. Moris Winter MONO # 0.7 103/ul Normal 0.3-0.8 [facility] Comment on above: Performed By: #### C BC #### [facility] [address] [place] [address] Dr. Moris Winter Monocytes/100 WBC (Bld) 9.9 % Normal 1.7-12.0 [facility] Comment on above: Performed By: #### C BC #### [facility] [address] [place] [address] Dr. Moris Winter NEUT # 4.1 103/ul Normal 1.4-6.5 [facility] Comment on above: Performed By: #### C BC #### [facility] [address] [place] [address] Dr. Moris Winter Neutrophils/100 WBC (Bld) 54.8 % Normal 43.0-75.0 [facility] Comment on above: Performed By: #### C BC #### [facility] [address] [place] [address] Dr. Moris Winter Platelet mean volume (Bld) [Entitic vol] 10.7 fL Normal 9.5-13.5 [facility] Comment on above: Performed By: #### C BC #### [facility] [address] [place] [address] Dr. Moris Winter PLT 248 103/ul Normal 150-450 [facility] Comment on above: Performed By: #### C BC #### [facility] [address] [place] [address] Dr. Moris Winter RBC 4.50 106/ul Normal 4.20-5.40 [facility] Comment on above: Performed By: #### C BC #### [facility] [address] [place] [address] Dr. Moris Winter WBC 7.5 103/ul Normal 4.0-11.0 [facility] Comment on above: Performed By: #### C BC #### [facility] [address] [place], [place] [address] ABD/PELV W CONon [...] NANCI COULTER Date: 2022-06-03 02:19 Normal [facility] URINE PROFILEon 3 Bilirubin Ql (U) Negative Normal NEGATIVE [facility] Comment on above: Performed By: #### C BC #### [facility] [address] [address] [address] Moris Winter Clarity (U) CLEAR Normal CLEAR [facility] Comment on above: Performed By: #### C BC #### [facility] [address] [place] [address] Dr. Moris Winter Color (U) LT. YELLOW Normal YELLOW [facility] Comment on above: Performed By: #### C BC #### [facility] [address] [place] [address] Dr. Moris Winter ERUAHD A micrscopic examina tion will be performed if indicated. Normal [facility] Comment on above: Performed By: #### C BC #### [facility] [address] [place] [address] Dr. Moris Winter Glucose Ql (U) Negative Normal NEGATIVE [facility] Comment on above: Performed By: #### C BC #### [facility] [address] [place] [address] Dr. Moris Winter Hemoglobin Ql (U) Negative Normal NEGATIVE [facility] Comment on above: Performed By: #### C BC #### [facility] [address] [place] [address] Dr. Moris Winter Ketones Ql (U) Negative Normal NEGATIVE [facility] Comment on above: Performed By: #### C BC #### [facility] [address] [place] [address] Dr. Moris Winter LEUKOCYTES Negative Normal NEGATIVE [facility] Comment on above: Performed By: #### C BC #### [facility] [address] [place] [address] Dr. Moris Winter Nitrite Ql (U) Negative Normal NEGATIVE [facility] Comment on above: Performed By: #### C BC #### [facility] [address] [place] [address] Dr. Moris Winter pH (U) 7.0 [pH] Normal 5-9 [facility] Comment on above: Performed By: #### C BC #### [facility] [address] [place] [address] Dr. Moris Winter SPEC GRAVITY 1.015 Normal 1.005-<=1. 025 [facility] Comment on above: Performed By: #### C BC #### [facility] [address] [place] [address] Dr. Moris Winter UA PROTEIN Negative Normal NEGATIVE/ TRACE [facility] Comment on above: Performed By: #### C BC #### [facility] [address] [place] [address] Dr. Moris Winter UR MICRO IND NOT INDICATED Normal [facility] Comment on above: Performed By: #### C BC #### [facility] [address] [place] [address] Dr. Moris Winter Urobilinogen Qn (U) 1.0 {Marcin'U}/dL Normal 0.2 - 1. 0 [facility] Comment on above: Performed By: #### C BC #### [facility] [address] [place] [address] Dr. Moris Winter LACTATE/LACTIC ACIDon 2022 Lactate [Moles/Vol] 1.0 mmol/L Normal 0.4-2.0 [facility] Comment on above: Performed By: #### L ACT #### [facility] [address] [place] [address] Dr. Moris Winter LIPASEon 06-03-2022 Lipase [Catalytic activity/Vol] 112.0 U/L Normal 73.0-393.0 [facility] Comment on above: Performed By: #### L IPA, CMP, KIM #### [facility] [address] [place] [address] Dr. Moris Winter URon 06-03-2022 , QUAL Negative Normal NEGATIVE [facility] Comment on above: Performed By: #### P REGU #### [facility] [address] [place] [address] Dr. Moris Winter PROF 14(COMP METB)on 023 Albumin [Mass/Vol] 2.9 g/dL Critically low 3.4-5.0 [facility] Comment on above: Performed By: #### L IPA, CMP, KIM #### [facility] [address] [place] [address] Dr. Moris Winter Albumin/Globulin [Mass ratio] 0.6 {ratio} Normal [facility] Comment on above: Performed By: #### L IPA, CMP, KIM #### [facility] [address] [address] [address] Moris Winter ALP [Catalytic activity/Vol] 86 U/L Normal 46-116 [facility] Comment on above: Performed By: #### L IPA, CMP, KIM #### [facility] [address] [address] [address] Moris Winter ALT [Catalytic activity/Vol] 14 U/L Normal 14-59 [facility] Comment on above: Performed By: #### L IPA, CMP, KIM #### [facility] [address] [place] [address] Dr. Moris Winter Anion gap [Moles/Vol] 10.9 mmol/L Normal [facility] Comment on above: Performed By: #### L IPA, CMP, KIM #### [facility] [address] [address] [address] Moris Winter AST [Catalytic activity/Vol] 12 U/L Critically low 15-37 [facility] Comment on above: Performed By: #### L IPA, CMP, KIM #### [facility] [address] [place] [address] Dr. Moris Winter Bilirubin [Mass/Vol] 0.2 mg/dL Normal 0.2-1.0 [facility] Comment on above: Performed By: #### L IPA, CMP, KIM #### [facility] [address] [place] [address] Dr. Moris Winter Calcium [Mass/Vol] 9.0 mg/dL Normal 8.5-10.1 [facility] Comment on above: Performed By: #### L IPA, CMP, KIM #### [facility] [address] [place] [address] Dr. Moris Winter Chloride [Moles/Vol] 102 mmol/L Normal 98-107 [facility] Comment on above: Performed By: #### L IPA, CMP, KIM #### [facility] [address] [place], [place] [id number] Dr. Moris Winter CO2 [Moles/Vol] 29.6 mmol/L Normal 21.0-32.0 [facility] Comment on above: Performed By: #### L IPA CMP, KIM #### [facility] [address] [address] [address] Moris Winter Creatinine [Mass/Vol] 0.73 mg/dL Normal 0.55-1.02 [facility] Comment on above: Performed By: #### L IPA CMP, KMI #### [facility] [address] [address] [address] Moris Winter EGFR-AF SAMMARINESE >60 Normal >=60 [facility] Comment on above: Performed By: #### L IPA CMP, KIM #### [facility] [address] [place] [address] Dr. Moris Winter EGFR-NON AF SAMMARINESE >60 Normal >=60 [facility] Comment on above: Performed By: #### L IPA CMP, KIM #### [facility] [address] [place] [address] Dr. Moris Winter Globulin (S) [Mass/Vol] 4.8 g/dL Normal [facility] Comment on above: Performed By: #### L IPA CMP, KIM #### [facility] [address] [place] [address] Dr. Moris Winter Glucose [Mass/Vol] 121 mg/dL Critically high 74-106 [facility] Comment on above: Performed By: #### L IPA CMP, KIM #### [facility] [address] [address] [address] Moris Winter Potassium [Moles/Vol] 3.5 mmol/L Normal 3.5-5.1 [facility] Comment on above: Performed By: #### L IPA CMP, KIM #### [facility] [address] [place] [address] Dr. Moris Winter Protein [Mass/Vol] 7.7 g/dL Normal 6.4-8.2 [facility] Comment on above: Performed By: #### L IPA CMP, KIM #### [facility] [address] [address] [address] Moris Winter Sodium [Moles/Vol] 139 mmol/L Normal 136-145 [facility] Comment on above: Performed By: #### L IPA, CMP, KIM #### [facility] [address] [address] [address] Moris Winter Urea nitrogen [Mass/Vol] 11.0 mg/dL Normal 7.0-18.0 [facility] Comment on above: Performed By: #### L IPA, CMP, KIM #### [facility] [address] [address] [address] Moris Winter Urea nitrogen/Creatinine [Mass ratio] 15.1 mg/mg Normal [facility] Comment on above: Performed By: #### L IPA, CMP, KIM #### [facility] [address] [address] [address] Moris Winter Alanine aminotransferase [En zymatic activity/volume] in Serum or PlasmaOrdered By: Nataly Toure on 05-28-2022 ALT [Catalytic activity/Vol] 10 U/L 7-52 [facility] Albumin [Mass/volume] in Ser um or Plasma by Bromocresol green (BCG) dye binding methoOrdered By: Nataly Toure on 05-28-2022 Albumin BCG dye [Mass/Vol] 3.9 g/dL 3.5-5.7 [facility] Alkaline phosphatase [Enzyma tic activity/volume] in Serum or PlasmaOrdered By: Nataly Toure on 05-28-2022 ALP [Catalytic activity/Vol] 87 U/L 34-104 [facility] Aspartate aminotransferase [ Enzymatic activity/volume] in Serum or PlasmaOrdered By: Nataly Toure on 05-28-2022 AST [Catalytic activity/Vol] 11 U/L 13-39 [facility] Basophils Auto (Bld) [#/Vol] Ordered By: Nataly Toure on 05-28-2022 Basophils (Bld) [#/Vol] 0.0 10*3/uL 0.0-0.2 [facility] Basophils/100 WBC Auto (Bld) Ordered By: Nataly Toure on 05-28-2022 Basophils/100 WBC (Bld) 0.6 % . [facility] Bilirubin.total [Mass/volume ] in Serum or PlasmaOrdered By: Nataly Toure on 05-28-2022 Bilirubin [Mass/Vol] 0.4 mg/dL 0.3-1.[address] [facility] Calcium [Mass/volume] in Ser um or PlasmaOrdered By: Nataly Toure on 05-28-2022 Calcium [Mass/Vol] 9.1 mg/dL 8.6-10.3 [facility] Carbon dioxide, total [Moles /volume] in Serum or PlasmaOrdered By: Nataly Toure on 05-28-2022 CO2 [Moles/Vol] 27.6 mmol/L 21.0-31.0 [facility] Chloride [Moles/volume] in S rosa or PlasmaOrdered By: Nataly Toure on 05-28-2022 Chloride [Moles/Vol] 102 mmol/L 98-[address] [facility] Cholesterol [Mass/volume] in Serum or PlasmaOrdered By: Nataly Toure on 05-28-2022 Cholesterol [Mass/Vol] 269 mg/dL 140-200 [facility] Comment on above: Chol less than 200 m g/dl low riskChol 201-239 mg/dl borderline riskChol 240 mg/dl and greater high risk Cholesterol in LDL Calc [Mas s/Vol]Ordered By: Nataly Toure on 05-28-2022 Cholesterol in LDL [Mass/Vol] TNP [facility] Comment on above: Test not performed Cholesterol in LDL [Mass/vol ume] in Serum or PlasmaOrdered By: Nataly Toure on 05-28-2022 Cholesterol in LDL [Mass/Vol] 82 mg/dL 0-100 [facility] Comment on above: LDL ATP III CLASSIFI CATIONLDL less than 100 mg/dL OptimalLDL 100-129 mg/dL Near or above optimalLDL 130-159 mg/dL Borderline highLDL 160-189 mg/dL HighLDL greater than 189 mg/dL Very high Cholesterol in VLDL Calc [Ma ss/Vol]Ordered By: Nataly Toure on 05-28-2022 Cholesterol in VLDL [Mass/Vol] 187 mg/dL [facility] Creatinine [Mass/volume] in Serum or PlasmaOrdered By: Nataly Toure on 05-28-2022 Creatinine [Mass/Vol] 0.68 mg/dL 0.60-1.20 [facility] Eosinophils Auto (Bld) [#/Vo l]Ordered By: Nataly Toure on 05-28-2022 Eosinophils (Bld) [#/Vol] 0.2 10*3/uL 0.0-0.45 [facility] Eosinophils/100 WBC Auto (Bl d)Ordered By: Nataly Toure on 05-28-2022 Eosinophils/100 WBC (Bld) 2.1 % . [facility] Erythrocyte distribution wid th Auto (RBC) [Ratio]Ordered By: Nataly Toure on 05-28-2022 Erythrocyte distribution width (RBC) [Ratio] 14.5 % 11.9-15.3 [facility] Free thyroxine indexOrdered By: Nataly Toure on 05-28-2022 Free T4 index Calc [Mass/Vol] 2.9 1.2-4.9 [facility] Globulin Calc (S) [Mass/Vol] Ordered By: Nataly Toure on 05-28-2022 Globulin (S) [Mass/Vol] 3.6 g/dL [facility] Glucose [Mass/volume] in Ser um or PlasmaOrdered By: Nataly Toure on 05-28-2022 Glucose [Mass/Vol] 95 mg/dL 70-100 [facility] Comment on above: ADA recommended refe [...] from glycated hemoglobin (Bld) [Mass/Vol] 111 mg/dL [facility] Hematocrit Auto (Bld) [Volum e fraction]Ordered By: Nataly Toure on 05-28-2022 Hematocrit (Bld) [Volume fraction] 38.2 % 34.0-46.4 [facility] Hemoglobin A1c percentageOrd ered By: Nataly Toure on 05-28-2022 HbA1c (Bld) [Mass fraction] 5.5 % 4.3-5.6 [facility] Comment on above: Increased risk for d iabetes: 5.7 - 6.4diabetes: >6.4glycemic control for adults with diabetes: <7.0 Hemoglobin [Mass/volume] in BloodOrdered By: Nataly Toure on 05-28-2022 Hemoglobin (Bld) [Mass/Vol] 12.9 g/dL 11.8-15.4 [facility] Iron [Mass/volume] in Serum or PlasmaOrdered By: Nataly Toure on 05-28-2022 Iron [Mass/Vol] 30 ug/dL 50-212 [facility] Iron binding capacity [Mass/ volume] in Serum or PlasmaOrdered By: Nataly Toure on 05-28-2022 Iron binding capacity [Mass/Vol] 449 ug/dL 255-450 [facility] Iron saturation [Mass Fracti on] in Serum or PlasmaOrdered By: Nataly Toure on 05-28-2022 Iron saturation [Mass fraction] 6.7 % 20-50 [facility] Leukocytes [#/volume] correc kee for nucleated erythrocytes in Blood by Automated counOrdered By: Nataly Toure on 05-28-2022 WBC corrected for nucl RBC Auto (Bld) [#/Vol] 7.3 10*3/uL 3.8-11.6 [facility] Lymphocytes Auto (Bld) [#/Vo l]Ordered By: Nataly Toure on 05-28-2022 Lymphocytes (Bld) [#/Vol] 1.9 10*3/uL 1.00-4.8 [facility] Lymphocytes/100 WBC Auto (Bl d)Ordered By: Nataly Toure on 05-28-2022 Lymphocytes/100 WBC (Bld) 26.6 % . [facility] MCH Auto (RBC) [Entitic mass ]Ordered By: Nataly Toure on 05-28-2022 MCH (RBC) [Entitic mass] 26.9 pg 24.7-34.3 [facility] MCHC Auto (RBC) [Mass/Vol]Or dered By: Nataly Toure on 05-28-2022 MCHC (RBC) [Mass/Vol] 33.8 g/dL 32.0-35.0 [facility] MCV Auto (RBC) [Entitic vol] Ordered By: Nataly Toure on 05-28-2022 MCV (RBC) [Entitic vol] 79.6 fL 80-100 [facility] Monocytes Auto (Bld) [#/Vol] Ordered By: Nataly Toure on 05-28-2022 Monocytes (Bld) [#/Vol] 0.6 10*3/uL 0.0-0.8 [facility] Monocytes/100 WBC Auto (Bld) Ordered By: Nataly Toure on 05-28-2022 Monocytes/100 WBC (Bld) 7.7 % . [facility] Neutrophils Auto (Bld) [#/Vo l]Ordered By: Nataly Toure on 05-28-2022 Neutrophils (Bld) [#/Vol] 4.6 10*3/uL 1.8-7.7 [facility] Neutrophils/100 WBC Auto (Bl d)Ordered By: Nataly Toure on 05-28-2022 Neutrophils/100 WBC (Bld) 63.0 % . [facility] No Panel InformationOrdered By: Nataly Toure on 05-28-2022 Estimated GFR (CKD-EPI) > 60.0 mL/Min [facility] Free Thyroxine (T4) Direct 10.8 ug/dL 4.5-12.0 [facility] Creatinine Clearance (Chem N/A [facility] Nucleated erythrocytes [Pres ence] in Blood by Automated countOrdered By: Nataly Toure on 05-28-2022 Nucleated RBC Auto Ql (Bld) 0.4 /100{WBC} 0-0.5 [facility] Platelet mean volume Auto (B ld) [Entitic vol]Ordered By: Nataly Toure on 05-28-2022 Platelet mean volume (Bld) [Entitic vol] 9.0 fL 6.3-10.7 [facility] Platelets Auto (Bld) [#/Vol] Ordered By: Nataly Toure on 05-28-2022 Platelets (Bld) [#/Vol] 247 10*3/uL 150-450 [facility] Potassium [Moles/volume] in Serum or PlasmaOrdered By: Nataly Toure on 05-28-2022 Potassium [Moles/Vol] 3.8 mmol/L 3.5-5.1 [facility] Protein [Mass/volume] in Ser um or PlasmaOrdered By: Nataly Toure on 05-28-2022 Protein [Mass/Vol] 7.5 g/dL 6.4-8.9 [facility] RBC Auto (Bld) [#/Vol]Ordere d By: Nataly Toure on 05-28-2022 RBC (Bld) [#/Vol] 4.80 10*6/uL 3.60-5.00 [facility] Serum or plasma albumin/glob ulin mass ratioOrdered By: Nataly Toure on 05-28-2022 Albumin/Globulin [Mass ratio] 1.1 {ratio} [facility] Serum or plasma anion gap de terminationOrdered By: Nataly Toure on 05-28-2022 Anion gap [Moles/Vol] 12.2 mmol/L 6.0-15.0 [facility] Serum or plasma high density lipoprotein (HDL) cholesterol measurementOrdered By: Nataly Toure on 05-28-2022 Cholesterol in HDL [Mass/Vol] 42 mg/dL 35-85 [facility] Comment on above: HDL CHOL ATP-III CLA SSIFICATION Cardiovascular RiskHDL > or equal to 60 mg/dL LOWHDL < 40 mg/dL HIGH Serum or plasma thyroperoxid ase antibody assay (units/volume)Ordered By: Nataly Toure on 05-28-2022 TPO Ab Qn [IU]/mL 0-34 [facility] Comment on above: Performed at: [address] [id number] Director: Sam Lopez PhD, Phone: [phone] Serum or plasma total choles terol/high density lipoprotein (HDL) cholesterol mass ratOrdered By: Nataly Toure on 05-28-2022 Cholesterol.total/Chol esterol in HDL [Mass ratio] 6.4 {ratio} <5.0 [facility] Sodium [Moles/volume] in Ser um or PlasmaOrdered By: Nataly Toure on 05-28-2022 Sodium [Moles/Vol] 138 mmol/L 136-145 [facility] TSH DL <= 0.005 mIU/L QnOrde red By: Nataly Toure on 05-28-2022 TSH Qn 2.330 m[IU]/L 0.450-4.50 0 [facility] Transferrin [Mass/volume] in Serum or PlasmaOrdered By: Nataly Toure on 05-28-2022 Transferrin [Mass/Vol] 321 mg/dL 203-362 [facility] Triglyceride [Mass/volume] i n Serum or PlasmaOrdered By: Nataly Toure on 05-28-2022 Triglyceride [Mass/Vol] 939 mg/dL 0-149 [facility] Comment on above: If the triglyceride [...] on 05-28-2022 T3 [Mass/Vol] 186 ng/dL 71-180 [facility] Triiodothyronine (T3) resin uptake testOrdered By: Nataly Toure on 05-28-2022 T3RU 27 % 24-39 [facility] Urea nitrogen [Mass/volume] in Serum or PlasmaOrdered By: Nataly Toure on 05-28-2022 Urea nitrogen [Mass/Vol] 11 mg/dL 7-25 [facility] WBC Auto (Bld) [#/Vol]Ordere d By: Nataly Toure on 05-28-2022 WBC (Bld) [#/Vol] 7.3 10*3/uL 3.8-11.6 [facility] XR LSPINE 2_3 VIEWSon 2022 XR [...] PILI MIGUEL Date: 2022-03-15 22:49 Normal [facility] CBC AUTO DIFFon 03-15-2022 BASO # 0.0 103/ul Normal 0.0-0.1 [facility] Comment on above: Performed By: #### P REGU #### [facility] [address] [address] [address] Moris Winter Basophils/100 WBC (Bld) 0.1 % Critically low 0.2-2.0 [facility] Comment on above: Performed By: #### P REGU #### [facility] [address] [address] [address] Moris Winter EO # 0.1 103/ul Normal 0.0-0.7 [facility] Comment on above: Performed By: #### P REGU #### [facility] [address] [address] [address] Moris Winter Eosinophils/100 WBC (Bld) 0.8 % Critically low 0.9-7.0 [facility] Comment on above: Performed By: #### P REGU #### [facility] [address] [address] [address] Moris Winter Erythrocyte distribution width (RBC) [Ratio] 13.3 % Normal 11.0-15.0 [facility] Comment on above: Performed By: #### P REGU #### [facility] [address] [place] [address] Dr. Moris Winter Hematocrit (Bld) [Volume fraction] 37.4 % Normal 36.0-48.0 [facility] Comment on above: Performed By: #### P REGU #### [facility] [address] [place] [address] Dr. Moris Winter Hemoglobin (Bld) [Mass/Vol] 13.2 g/dL Normal 12.0-16.0 [facility] Comment on above: Performed By: #### P REGU #### [facility] [address] [place] [address] Dr. Moris Winter IG # 0.02 10e3/ul Normal 0.00-0.03 [facility] Comment on above: Performed By: #### P REGU #### [facility] [address] [place] [address] Dr. Moris Winter IG % 0.2 % Normal 0.0-0.5 [facility] Comment on above: Performed By: #### P REGU #### [facility] [address] [place] [address] Dr. Moris Winter LYMPH # 1.2 103/ul Normal 1.2-3.8 [facility] Comment on above: Performed By: #### P REGU #### [facility] [address] [place] [address] Dr. Moris Winter Lymphocytes/100 WBC (Bld) 14.6 % Critically low 20.5-60.0 [facility] Comment on above: Performed By: #### P REGU #### [facility] [address] [place] [address] Dr. Moris Winter MANUAL DIFF REQ NO Normal [facility] Comment on above: Performed By: #### P REGU #### [facility] [address] [place] [address] Dr. Moris Winter MCH (RBC) [Entitic mass] 27.3 pg Normal 26.7-34.0 [facility] Comment on above: Performed By: #### P REGU #### [facility] [address] [place] [address] Dr. Moris Winter MCHC (RBC) [Mass/Vol] 35.3 g/dL Critically high 29.9-35.2 [facility] Comment on above: Performed By: #### P REGU #### [facility] [address] [place] [address] Dr. Moris Winter MCV (RBC) [Entitic vol] 77.3 fL Critically low 81.0-99.0 [facility] Comment on above: Performed By: #### P REGU #### [facility] [address] [place] [address] Dr. Moris Winter MONO # 0.5 103/ul Normal 0.3-0.8 [facility] Comment on above: Performed By: #### P REGU #### [facility] [address] [place] [address] Dr. Moris Winter Monocytes/100 WBC (Bld) 5.4 % Normal 1.7-12.0 [facility] [facility] Comment on above: Performed By: #### P REGU #### [facility] [address] [place] [address] Dr. Moris Winter NEUT # 6.5 103/ul Normal 1.4-6.5 [facility] Comment on above: Performed By: #### P REGU #### [facility] [address] [place] [address] Dr. Moris Winter Neutrophils/100 WBC (Bld) 78.9 % Critically high 43.0-75.0 [facility] Comment on above: Performed By: #### P REGU #### [facility] [address] [place] [address] Dr. Moris Winter Platelet mean volume (Bld) [Entitic vol] 10.1 fL Normal 9.5-13.5 [facility] Comment on above: Performed By: #### P REGU #### [facility] [address] [place] [address] Dr. Moris Winter PLT 256 103/ul Normal 150-450 [facility] Comment on above: Performed By: #### P REGU #### [facility] [address] [place] [address] Dr. Moris Winter RBC 4.84 106/ul Normal 4.20-5.40 [facility] Comment on above: Performed By: #### P REGU #### [facility] [address] [place] [address] Dr. Moris Winter WBC 8.3 103/ul Normal 4.0-11.0 [facility] Comment on above: Performed By: #### P REGU #### [facility] [address] [place] [address] Dr. Moris Winter CRPon 03-15-2022 CRP 3.3 mg/dL Critically high <=1.0 [facility] Comment on above: Performed By: #### B MP, CRP #### [facility] [address] [place] [address] Dr. Moris Winter URon 03-15-2022 , QUAL Negative Normal NEGATIVE [facility] Comment on above: Performed By: #### P REGU #### [facility] [address] [place] [address] Dr. Moris Winter PROF CHEM 8 (BAS METB)on Anion gap [Moles/Vol] 15.8 mmol/L Normal Th [facility] Comment on above: Performed By: #### B MP, CRP #### [facility] [address] [place] [address] Dr. Moris Winter Calcium [Mass/Vol] 8.6 mg/dL Normal 8.5-10.1 [facility] Comment on above: Performed By: #### B MP, CRP #### [facility] [address] [place] [address] Dr. Moris Winter Chloride [Moles/Vol] 98 mmol/L Normal 98-107 [facility] Comment on above: Performed By: #### B MP, CRP #### [facility] [address] [place] [address] Dr. Moris Winter CO2 [Moles/Vol] 26.7 mmol/L Normal 21.0-32.0 [facility] Comment on above: Performed By: #### B MP, CRP #### [facility] [address] [place] [address] Dr. Moris Winter Creatinine [Mass/Vol] 0.80 mg/dL Normal 0.55-1.02 [facility] Comment on above: Performed By: #### B MP, CRP #### [facility] [address] [place] [address] Dr. Moris Winter EGFR-AF SAMMARINESE >60 Normal >=60 [facility] Comment on above: Performed By: #### B MP, CRP #### [facility] [address] [place] [address] Dr. Moris Winter EGFR-NON AF SAMMARINESE >60 Normal >=60 [facility] Comment on above: Performed By: #### B MP, CRP #### [facility] [address] [place] [address] Dr. Moris Winter Glucose [Mass/Vol] 103 mg/dL Normal 74-106 [facility] Comment on above: Performed By: #### B MP, CRP #### [facility] [address] [place] [address] Dr. Moris Winter Potassium [Moles/Vol] 3.5 mmol/L Normal 3.5-5.1 [facility] Comment on above: Performed By: #### B MP, CRP #### [facility] [address] [place] [address] Dr. Moris Winter Sodium [Moles/Vol] 137 mmol/L Normal 136-145 [facility] Comment on above: Performed By: #### B MP, CRP #### [facility] [address] [place] [address] Dr. Moris Winter Urea nitrogen [Mass/Vol] 15.0 mg/dL Normal 7.0-18.0 [facility] Comment on above: Performed By: #### B MP, CRP #### [facility] [address] [address] [address] Moris Winter Urea nitrogen/Creatinine [Mass ratio] 18.8 mg/mg Normal [facility] Comment on above: Performed By: #### B MP, CRP #### [facility] [address] [place] [address] Dr. Moris Winter SED RATE [facility] 2022 SED RATE 51 mm/hr Critically high <=20 [facility] Comment on above: Performed By: #### P REGU #### [facility] [address] [address] [address] Moris Winter Amphetamine Screen Ql (U)Ord ered By: TELMA Smith on 10-18-2021 Amphetamines Ql (U) Negative Negative [facility] Automated erythrocytes count in urine sediment (number/area)Ordered By: TELMA Smith on 10-18-2021 RBC Auto (Urine sed) [#/Area] 1-2 [HPF] 0-4 [facility] Automated leukocytes count i n urine sediment (number/area)Ordered By: TELMA Smith on 10-18-2021 WBC Auto (Urine sed) [#/Area] 20-49 [HPF] 0-4 [facility] Barbiturates [Presence] in U rineOrdered By: TELMA Smith on 10-18-2021 Barbiturates Ql (U) Negative Negative [facility] Basophils Auto (Bld) [#/Vol] Ordered By: TELMA Smith on 10-18-2021 Basophils (Bld) [#/Vol] 0.0 10*3/uL 0.0-0.2 [facility] Basophils/100 WBC Auto (Bld) Ordered By: TELMA Smith on 10-18-2021 Basophils/100 WBC (Bld) 0.3 % . [facility] Benzodiazepines [Presence] i n UrineOrdered By: TELMA Smith on 10-18-2021 Benzodiazepines Ql (U) Negative Negative [facility] Bilirubin Test strip Ql (U)O rdered By: TELMA Smith on 10-18-2021 Bilirubin Ql (U) Negative Negative [facility] Blood hemoglobin measurement (mass/volume)Ordered By: TELMA Smith on 10-18-2021 Hemoglobin (Bld) [Mass/Vol] 11.3 g/dL 11.8-15.4 [facility] Blood leukocytes automated c ount (number/volume)Ordered By: TELMA Smith on 10-18-2021 WBC (Bld) [#/Vol] 10.1 10*3/uL 4.5-11.0 [facility] COVID-19 SOFIAOrdered By: MD DESEAN Smith on 10-18-2021 SARS-CoV+SARS-CoV-2 (COVID-19) Ag IA.rapid Ql (Resp) Negative Negative [facility] Comment on above: This is a duplicate [place] SARS Antigen (AUTUMN) result to be used for statistical tracking purpose only. Color Auto (U)Ordered By: MD DESEAN Smith on 10-18-2021 Color (U) Yellow Yellow [facility] Eosinophils Auto (Bld) [#/Vo l]Ordered By: TELMA Smith on 10-18-2021 Eosinophils (Bld) [#/Vol] 0.1 10*3/uL 0.0-0.45 [facility] Eosinophils/100 WBC Auto (Bl d)Ordered By: TELMA Smith on 10-18-2021 Eosinophils/100 WBC (Bld) 1.3 % . [facility] Erythrocyte distribution wid th Auto (RBC) [Ratio]Ordered By: TELMA Smith on 10-18-2021 Erythrocyte distribution width (RBC) [Ratio] 15.6 % 11.9-15.3 [facility] Hematocrit Auto (Bld) [Volum e fraction]Ordered By: TELMA Smith on 10-18-2021 Hematocrit (Bld) [Volume fraction] 34.9 % 34.0-46.4 [facility] Ketones Auto test strip (U) [Mass/Vol]Ordered By: TELMA Smith on 10-18-2021 Ketones (U) [Mass/Vol] Trace Negative [facility] Ordered By: TELMA Smith on 10-18-2021 Opiates Ql (U) Negative Negative [facility] - Hematology and Cell countsOrdered By: TELMA Smith on 10-18-2021 Nucleated RBC/100 WBC (Bld) [Ratio] 0.1 % 0-0.5 [facility] - UrinalysisOrder ed By: TELMA Smith on 10-18-2021 Hyaline casts LM Ql (Urine sed) 9-19 [LPF] 0-8 [facility] Lymphocytes Auto (Bld) [#/Vo l]Ordered By: TELMA Smith on 10-18-2021 Lymphocytes (Bld) [#/Vol] 1.7 10*3/uL 1.00-4.8 [facility] Lymphocytes/100 WBC Auto (Bl d)Ordered By: TELMA Smith on 10-18-2021 Lymphocytes/100 WBC (Bld) 17.0 % . [facility] MCH Auto (RBC) [Entitic mass ]Ordered By: TELMA Smith on 10-18-2021 MCH (RBC) [Entitic mass] 25.9 pg 24.7-34.3 [facility] MCHC Auto (RBC) [Mass/Vol]Or dered By: TELMA Smith on 10-18-2021 MCHC (RBC) [Mass/Vol] 32.5 g/dL 32.0-35.0 [facility] MCV Auto (RBC) [Entitic vol] Ordered By: TELMA Smith on 10-18-2021 MCV (RBC) [Entitic vol] 79.6 fL 80-100 [facility] Monocytes Auto (Bld) [#/Vol] Ordered By: TELMA Smith on 10-18-2021 Monocytes (Bld) [#/Vol] 0.8 10*3/uL 0.0-0.8 [facility] Monocytes/100 WBC Auto (Bld) Ordered By: TELMA Smith on 10-18-2021 Monocytes/100 WBC (Bld) 8.1 % . [facility] Neutrophils Auto (Bld) [#/Vo l]Ordered By: TELMA Smith on 10-18-2021 Neutrophils (Bld) [#/Vol] 7.4 10*3/uL 1.8-7.7 [facility] Neutrophils/100 WBC Auto (Bl d)Ordered By: TELMA Smith on 10-18-2021 Neutrophils/100 WBC (Bld) 73.3 % . [facility] Nitrite Test strip Ql (U)Ord ered By: TELMA Smith on 10-18-2021 Nitrite Ql (U) Negative Negative [facility] No Panel InformationOrdered By: TELMA Smith on 10-18-2021 SARS Antigen (LFIA) [facility] Phencyclidine Screen Ql (U)O rdered By: TELMA Smith on 10-18-2021 Phencyclidine Ql (U) Negative Negative [facility] Comment on above: These are unconfirme d results and should not be used for legal purposes. Drug Cut-Off Concentration: AMPH 1000 ng/mL KELLY 200 ng/mL JOE 200 ng/mL COCM 300 ng/mL OP 300 ng/mL PCP 25 ng/mL Platelet mean volume Auto (B ld) [Entitic vol]Ordered By: TELMA Smith on 10-18-2021 Platelet mean volume (Bld) [Entitic vol] 9.7 fL 6.3-10.7 [facility] Platelets Auto (Bld) [#/Vol] Ordered By: TELMA Smith on 10-18-2021 Platelets (Bld) [#/Vol] 190 10*3/uL 150-450 [facility] Protein Auto test strip (U) [Mass/Vol]Ordered By: TELMA Smith on 10-18-2021 Protein (U) [Mass/Vol] Trace mg/dL Negative [facility] RBC Auto (Bld) [#/Vol]Ordere d By: TELMA Smith on 10-18-2021 RBC (Bld) [#/Vol] 4.38 10*6/uL 3.60-5.00 [facility] S. agalactiae Org specific c x Ql (Unsp spec)Ordered By: Radha Molina on 10-18-2021 Group B Streptococcus Culture Strep. agalactiae Grp B [facility] Specific gravity Auto test s trip (U) [Rel density]Ordered By: TELMA Smith on 10-18-2021 Specific gravity (U) [Rel density] 1.020 1.001-1.03 0 [facility] Squamous epithelial cells de tection in urine sediment by light microscopyOrdered By: TELMA Smith on 10-18-2021 Epithelial cells.squamous LM Ql (Urine sed) 5-9 [HPF] 0-2 [facility] Urine bacteria detection by automated methodOrdered By: TELMA Smith on 10-18-2021 Bacteria Auto Ql (U) 1+ None Seen [facility] Urine clarity by refractomet ry automatedOrdered By: TELMA Smith on 10-18-2021 Clarity Refractometry automated (U) Cloudy Clear [facility] Urine cocaine detectionOrder ed By: TELMA Smith on 10-18-2021 Cocaine Ql (U) Negative Negative [facility] Urine glucose measurement by automated test strip (mass/volume)Ordered By: SHELLIE Smith on 10-18-2021 Glucose Auto test strip (U) [Mass/Vol] Normal mg/dL Normal [facility] Urine hemoglobin detection b y automated test stripOrdered By: TELMA Smith on 10-18-2021 Hemoglobin Auto test strip Ql (U) Negative Negative [facility] Urine leukocyte esterase det ection by automated test stripOrdered By: TELMA Smith on 10-18-2021 Leukocyte esterase Auto test strip Ql (U) 3+ Negative [facility] Urobilinogen Auto test strip (U) [Mass/Vol]Ordered By: TELMA Smith on 10-18-2021 Urobilinogen (U) [Mass/Vol] Normal mg/dL Normal [facility] pH Auto test strip (U)Ordere d By: TELMA Smith on 10-18-2021 pH (U) 6.5 [pH] 5.0-9.0 [facility] UA (CLEAN/CATCH) DIRECTOR OF SEARCH ENGINE MARKETING/MICRO I F IND.on 08-31-2021 Bilirubin Ql (U) Negative Normal NEGATIVE [facility] Comment on above: Performed By: #### U ACSJOANN MACKEY #### [facility] [address] [address] [address] Moris Winter Clarity (U) SL CLOUDY Abnormal CLEAR [facility] Comment on above: Performed By: #### U ACSIND, UMICRO #### [facility] [address] [address] [address] Moris Winter Color (U) LT. YELLOW Normal YELLOW [facility] Comment on above: Performed By: #### U ACSIND, UMICRO #### [facility] [address] [address] [address] Moris Winter Glucose Ql (U) Negative Normal NEGATIVE [facility] Comment on above: Performed By: #### U ACSIND, UMICRO #### [facility] [address] [place] [address] Dr. Moris Winter Hemoglobin Ql (U) TRACE-INTACT Abnormal NEGATIVE [facility] Comment on above: Performed By: #### U ACSNARENDRA, UMICRO #### [facility] [address] [place] [address] Dr. Moris Winter Ketones Ql (U) Negative Normal NEGATIVE [facility] Comment on above: Performed By: #### U ACSNARENDRA UMICRO #### [facility] [address] [place] [address] Dr. Moris Winter LEUKOCYTES TRACE Abnormal NEGATIVE [facility] Comment on above: Performed By: #### U ACSNARENDRA UMICRO #### [facility] [address] [place] [address] Dr. Moris Winter Nitrite Ql (U) Negative Normal NEGATIVE [facility] Comment on above: Performed By: #### U ACSNARENDRA UMICRO #### [facility] [address] [place] [address] Dr. Moris Winter pH (U) 7.0 [pH] Normal 5-9 [facility] Comment on above: Performed By: #### U ACSNARENDRA UMICRO #### [facility] [address] [place] [address] Dr. Moris Winter SPEC GRAVITY 1.010 Normal 1.005-<=1. 025 [facility] Comment on above: Performed By: #### U ACSNARENDRA, UMICRO #### [facility] [address] [place] [address] Dr. Moris Winter UA PROTEIN Negative Normal NEGATIVE/ TRACE [facility] Comment on above: Performed By: #### U ACSIND, UMICRO #### [facility] [address] [place] [address] Dr. Moris Winter UR MICRO IND INDICATED Normal [facility] Comment on above: Performed By: #### U ACSIND, UMICRO #### [facility] [address] [place] [address] Dr. Moris Winter Urobilinogen Qn (U) 0.2 {Marcin'U}/dL Normal 0.2 - 1. 0 [facility] Comment on above: Performed By: #### U ACSIND, UMICRO #### [facility] [address] [place] [address] Dr. Moris Winter URINE MICROSCOPIC ONLYon BACTERIA NONE SEEN Normal NONE SEEN [facility] Comment on above: Performed By: #### U ACSIND, UMICRO #### [facility] [address] [place] [address] Dr. Moris Winter Bacteria identified Cx Nom (U) NOT INDICATED Normal [facility] Comment on above: Performed By: #### U ACSIND, UMICRO #### [facility] [address] [place] [address] Dr. Moris Winter CAST NONE SEEN Normal NONE SEEN [facility] Comment on above: Performed By: #### U ACSIND, UMICRO #### [facility] [address] [place] [address] Dr. Moris Winter Crystals LM Nom (Urine sed) NONE SEEN Normal NONE SEEN [facility] Comment on above: Performed By: #### U ACSIND, UMICRO #### [facility] [address] [place] [address] Dr. Moris Winter Epithelial cells LM Ql (Urine sed) MODERATE Abnormal NONE SEEN /RARE [facility] Comment on above: Performed By: #### U ACSIND, UMICRO #### [facility] [address] [place] [address] Dr. Moris Winter MUCOUS NONE SEEN Normal NONE SEEN [facility] Comment on above: Performed By: #### U ACSNARENDRA, UMICRO #### [facility] [address] [address] [address] Moris Winter RBC 0-2 Normal 0-2 [facility] Comment on above: Performed By: #### U ACSNARENDRA, UMICRO #### [facility] [address] [address] [address] Moris Winter WBC 0-2 Abnormal NONE SEEN [facility] Comment on above: Performed By: #### U ACSNARENDRA UMICRO #### [facility] [address] [address] [address] Moris Winter Covid-19 PCR ([facility])on 07-17 SARS-CoV-2 (COVID-19) RNA SVETLANA+probe Ql (Unsp spec) Detected Critically abnormal NOT DETECTED [facility] Comment on above: Result Comment: This test is not yet approved or cleared by the [place] FDA. When there are no FDA-approved or cleared tests available, and other criteria are met, FDA can make tests available under an emergency access mechanism called an Emergency Use Authorization (EUA). The EUA for this test is supported by the [employer] Operator of Health and Human Service's declaration [...] used). Performed By: #### P REGU #### [facility] [address] [place] [address] Dr. Moris Winter INFLUENZA A AND B AGon 08-08 INFLUANEGH SEE BELOW Normal [facility] Comment on above: Result Comment: Nega tive for Flu A protein angiten. Infection due to Flu A cannot be ruled out. Flu A angiten in the sample may be below the detection limit of the test. Performed By: #### P REGU #### [facility] [address] [place] [address] Dr. Moris Winter INFLUBNEGH SEE BELOW Normal [facility] Comment on above: Result Comment: Nega tive for Flu B protein antigen. Infection due to Flu B cannot be ruled out. Flu B antigen in the sample may be below the detection limit of the test. Performed By: #### P REGU #### [facility] [address] [place] [address] Dr. Moris Winter INFLUENZA A AG Negative Normal NEGATIVE SEE COMMENT [facility] Comment on above: Performed By: #### P REGU #### [facility] [address] [address] [address] Moris Winter INFLUENZA B AG Negative Normal NEGATIVE SEE COMMENT [facility] Comment on above: Performed By: #### P REGU #### [facility] [address] [place] [address] Dr. Moris Winter INTERNAL CONTROLS Within Normal Limits Normal Wi thin Normal Limits [facility] Comment on above: Performed By: #### P REGU #### [facility] [address] [place] [address] Dr. Moris Winter Serum or plasma beta choriog onadotropin measurement (units/volume)Ordered By: Radha Molina on 07-21-2021 [place] [address].00 m[IU]/mL [facility] Comment on above: Approximate Approxim ate hCG Gestational Age Range (mIU/ml) (weeks) 0.2-1 5-50 1-2 50-500 2-3 100-5,000 3-4 500-10,000 4-5 1,000-50,000 5-6 10,000-100,000 6-8 15,000-200,000 8-12 10,000-100,000 Operative Reporton 9 Operative Report MR#: [id number] [facility] Pt. Name: Rosette Alba Room #: OR Discharge Date: Birthdate: 2000 OPERATIVE REPORT DATE OF SURGERY: 08/03/2018 SURGEON: Sharla Hicks M.D. ASSISTANTS: 1. Art Mancilla M.D. 2. Marleny Franco M.D. 3. Andie Wynkoop, M.D. PREOPERATIVE DIAGNOSIS: Right ring finger nail [...] placed Adaptic under the skin using a Vera and tied this down with a 5-0 [...] Carballo MD Date Trans: 08/03/2018 08:27 P/antony [id number] cc: Soraya Romo [address] [place] [id number] Normal [facility] POC GLUCOSE LABon 08-03-2018 Glucose [Mass/Vol] 105 mg/dL High 70-100 [facility] Comment on above: Performed By: #### [id number] #### [facility] [address] [place] [address], [facility] POC URINE PREGNANCYon 2018 Beta HCG ( test) Ql (U) Negative Normal NEGATIVE [facility] Comment on above: Result Comment: Perf ormed in PACU Performed By: #### [id number] #### [facility] [address] [place] [address], [facility] Vital Signs Date Time Vital Sign Value Performing Clinician Facility 09-19-2024 14:25-0400 Body mass index (BMI) [Ratio] 41.27 kg/m2 [employer] Work Phone: [facility] 09-19-2024 14:25-0400 Body weight 105.69 kg Camacho Mary [employer] Work Phone: [facility] 09-19-2024 14:25-0400 Diastolic blood pressure 72 mm[Hg] Camacho Mary DO Work Phone: [facility] 09-19-2024 14:25-0400 Systolic blood pressure 122 mm[Hg] Camacho Mary DO Work Phone: [facility] 08-09-2024 11:32-0400 Body mass index (BMI) [Ratio] 41.12 kg/m2 Kim Khoury PA Work Phone: [facility] 08-09-2024 11:32-0400 Body weight 105.29 kg Kim Iraida PA Work Phone: [facility] 08-09-2024 11:32-0400 Diastolic blood pressure 70 mm[Hg] Kim Khoury PA Work Phone: [facility] 08-09-2024 11:32-0400 Systolic blood pressure 110 mm[Hg] Kim Khoury PA Work Phone: [facility] 06-15-2024 14:03-0400 Body mass index (BMI) [Ratio] 42.3 kg/m2 Riya Alexander [employer] Work Phone: [facility] 06-15-2024 14:03-0400 Body weight 108.32 kg Riya Catherine [employer] Work Phone: [facility] 06-15-2024 14:03-0400 Diastolic blood pressure 70 mm[Hg] Riya Catherine [employer] Work Phone: [facility] 06-15-2024 14:03-0400 Systolic blood pressure 118 mm[Hg] Riya Catherine [employer] Work Phone: [facility] 06-01-2024 09:56-0400 Body mass index (BMI) [Ratio] 41.72 kg/m2 Camacho Mary DO Work Phone: [facility] 06-01-2024 09:56-0400 Body weight 106.82 kg Camacho Mary DO Work Phone: [facility] 06-01-2024 09:56-0400 Diastolic blood pressure 66 mm[Hg] Camacho Mary DO Work Phone: [facility] 06-01-2024 09:56-0400 Systolic blood pressure 110 mm[Hg] Camacho Mary DO Work Phone: [facility] 05-29-2024 12:36-0400 Body mass index (BMI) [Ratio] 40.57 kg/m2 Trudy Cordondavid [employer] Work Phone: [facility] 05-29-2024 12:36-0400 Body temperature 98.2 [degF] Trudy Cordondavid [employer] Work Phone: [facility] 05-29-2024 12:36-0400 Body weight 103.87 kg Trudy Cordondavid [employer] Work Phone: [facility] 05-29-2024 12:36-0400 Heart rate 113 /min Trudy Cordondavid [employer] Work Phone: [facility] 05-29-2024 12:36-0400 SaO2% (BldA) [Mass fraction] 97 % Trudy Cordondavid [employer] Work Phone: [facility] 05-04-2024 11:14-0400 Body mass index (BMI) [Ratio] 40.59 kg/m2 Camacho Mary DO Work Phone: [facility] 05-04-2024 11:14-0400 Body weight 103.93 kg Camacoh Mary DO Work Phone: [facility] 05-04-2024 11:14-0400 Diastolic blood pressure 70 mm[Hg] Camacho Mary DO Work Phone: [facility] 05-04-2024 11:14-0400 Systolic blood pressure 126 mm[Hg] Camacho Mary DO Work Phone: [facility] 04-13-2024 11:56-0500 Body height 160 cm Ni Carroll MD Work Phone: [facility] 04-13-2024 11:56-0500 Body mass index (BMI) [Ratio] 40.19 kg/m2 Ni Carroll MD Work Phone: [facility] 04-13-2024 11:56-0500 Body weight 102.88 kg Ni Carroll MD Work Phone: [facility] 04-13-2024 11:56-0500 Diastolic blood pressure 64 mm[Hg] Ni Carroll MD Work Phone: [facility] 04-13-2024 11:56-0500 Heart rate 98 /min Ni Carroll MD Work Phone: [facility] 04-13-2024 11:56-0500 Systolic blood pressure 116 mm[Hg] Ni Carroll MD Work Phone: [facility] 04-06-2024 11:45-0500 Body mass index (BMI) [Ratio] 40.46 kg/m2 Kim QUICK Work Phone: [facility] 04-06-2024 11:45-0500 Body weight 103.6 kg Kim QUICK Work Phone: [facility] 04-06-2024 11:45-0500 Diastolic blood pressure 70 mm[Hg] Kim QUICK Work Phone: [facility] 04-06-2024 11:45-0500 Systolic blood pressure 114 mm[Hg] Kim Khoury PA Work Phone: [facility] 03-09-2024 10:38-0500 Body mass index (BMI) [Ratio] 39.17 kg/m2 Camacho Mary DO Work Phone: [facility] 03-09-2024 10:38-0500 Body weight 100.31 kg Camacho Mary DO Work Phone: [facility] 03-09-2024 10:38-0500 Diastolic blood pressure 60 mm[Hg] Camacho Mary DO Work Phone: [facility] 03-09-2024 10:38-0500 Systolic blood pressure 116 mm[Hg] Camacho Mary DO Work Phone: [facility] 10-20-2023 08:28-0400 Body height 160.02 cm BASKET PATCHER-C Nataly Spasic Work Phone: [facility] 10-20-2023 08:28-0400 Body mass index (BMI) [Ratio] 38 kg/m2 BASKET PATCHER-C Nataly Spasic Work Phone: [facility] 10-20-2023 08:28-0400 Body temperature 97.7 [degF] BASKET PATCHER-C Nataly Spasic Work Phone: [facility] 10-20-2023 08:28-0400 Body weight 97.52 kg BASKET PATCHER-C Nataly Spasic Work Phone: [facility] 10-20-2023 08:28-0400 Diastolic blood pressure 74 mm[Hg] BASKET PATCHER-C Nataly Spasic Work Phone: [facility] 10-20-2023 08:28-0400 Heart rate 75 /min BASKET PATCHER-C Nataly Spasic Work Phone: [facility] 10-20-2023 08:28-0400 Respiratory rate 18 /min BASKET PATCHER-C Nataly Spasic Work Phone: [facility] 10-20-2023 08:28-0400 SaO2% (BldA) [Mass fraction] 99 % BASKET PATCHER-C Nataly Spasic Work Phone: [facility] 10-20-2023 08:28-0400 Systolic blood pressure 107 mm[Hg] BASKET PATCHER-C Nataly Spasic Work Phone: [facility] 10-04-2023 22:40-0400 Body height 160.02 cm BASKET PATCHER-C Nataly Spasic Work Phone: [facility] 10-04-2023 22:40-0400 Body temperature 97.7 [degF] BASKET PATCHER-C Nataly Spasic Work Phone: [facility] 10-04-2023 22:40-0400 Body weight 95.5 kg BASKET PATCHER-C Nataly Spasic Work Phone: [facility] 10-04-2023 22:40-0400 Diastolic blood pressure 75 mm[Hg] BASKET PATCHER-C Nataly Spasic Work Phone: [facility] 10-04-2023 22:40-0400 Heart rate 95 /min BASKET PATCHER-C Nataly Spasic Work Phone: [facility] 10-04-2023 22:40-0400 Respiratory rate 16 /min BASKET PATCHER-C Nataly Spasic Work Phone: [facility] 10-04-2023 22:40-0400 SaO2% (BldA) [Mass fraction] 98 % BASKET PATCHER-C Nataly Spasic Work Phone: [facility] 10-04-2023 22:40-0400 Systolic blood pressure 132 mm[Hg] BASKET PATCHER-C Nataly Spasic Work Phone: [facility] 09-26-2023 21:36-0400 Body temperature 98.1 [degF] BASKET PATCHER-C Nataly Spasic Work Phone: [facility] 09-26-2023 21:36-0400 Diastolic blood pressure 74 mm[Hg] BASKET PATCHER-C Nataly Spasic Work Phone: [facility] 09-26-2023 21:36-0400 Heart rate 90 /min BASKET PATCHER-C Nataly Spasic Work Phone: [facility] 09-26-2023 21:36-0400 Respiratory rate 16 /min BASKET PATCHER-C Nataly Spasic Work Phone: [facility] 09-26-2023 21:36-0400 SaO2% (BldA) [Mass fraction] 99 % BASKET PATCHER-C Nataly Spasic Work Phone: [facility] 09-26-2023 21:36-0400 Systolic blood pressure 145 mm[Hg] BASKET PATCHER-C Nataly Spasic Work Phone: [facility] 09-26-2023 21:35-0400 Body height 160.02 cm BASKET PATCHER-C Nataly Spasic Work Phone: [facility] 09-26-2023 21:35-0400 Body weight 96.7 kg BASKET PATCHER-C Nataly Spasic Work Phone: [facility] 08-20-2023 23:05-0400 Body height 160.02 cm BASKET PATCHER-C Nataly Spasic Work Phone: [facility] 08-20-2023 23:05-0400 Body temperature 98.3 [degF] BASKET PATCHER-C Nataly Spasic Work Phone: [facility] 08-20-2023 23:05-0400 Body weight 97.5 kg BASKET PATCHER-C Nataly Spasic Work Phone: [facility] 08-20-2023 23:05-0400 Diastolic blood pressure 66 mm[Hg] BASKET PATCHER-C Nataly Spasic Work Phone: [facility] 08-20-2023 23:05-0400 Heart rate 90 /min BASKET PATCHER-C Nataly Spasic Work Phone: [facility] 08-20-2023 23:05-0400 Respiratory rate 20 /min BASKET PATCHER-C Nataly Spasic Work Phone: [facility] 08-20-2023 23:05-0400 SaO2% (BldA) [Mass fraction] 99 % BASKET PATCHER-C Nataly Spasic Work Phone: [facility] 08-20-2023 23:05-0400 Systolic blood pressure 136 mm[Hg] BASKET PATCHER-C Nataly Spasic Work Phone: [facility] 02-13-2023 21:40-0500 Body temperature 97.7 [degF] BASKET PATCHER-C Nataly Spasic Work Phone: [facility] 12-30-2023 21:40-0500 Diastolic blood pressure 87 mm[Hg] BASKET PATCHER-C Nataly Spasic Work Phone: [facility] 02-13-2023 21:40-0500 Heart rate 100 /min BASKET PATCHER-C Nataly Spasic Work Phone: [facility] 02-13-2023 21:40-0500 Respiratory rate 18 /min BASKET PATCHER-C Nataly Spasic Work Phone: [facility] 02-13-2023 21:40-0500 SaO2% (BldA) [Mass fraction] 96 % BASKET PATCHER-C Nataly Spasic Work Phone: [facility] 02-13-2023 21:40-0500 Systolic blood pressure 140 mm[Hg] BASKET PATCHER-C Nataly Spasic Work Phone: [facility] 02-13-2023 11:10-0500 Body height 160.02 cm BASKET PATCHER-C Nataly Spasic Work Phone: [facility] 02-13-2023 11:10-0500 Body weight 99.79 kg BASKET PATCHER-C Nataly Spasic Work Phone: [facility] 02-01-2023 19:30-0500 Body temperature 97.3 [degF] BASKET PATCHER-C Nataly Spasic Work Phone: [facility] 02-01-2023 19:30-0500 Diastolic blood pressure 75 mm[Hg] BASKET PATCHER-C Nataly Spasic Work Phone: [facility] 02-01-2023 19:30-0500 Heart rate 94 /min BASKET PATCHER-C Nataly Spasic Work Phone: [facility] 02-01-2023 19:30-0500 Respiratory rate 14 /min BASKET PATCHER-C Nataly Spasic Work Phone: [facility] 02-01-2023 19:30-0500 SaO2% (BldA) [Mass fraction] 98 % BASKET PATCHER-C Nataly Spasic Work Phone: [facility] 02-01-2023 19:30-0500 Systolic blood pressure 123 mm[Hg] BASKET PATCHER-C Nataly Spasic Work Phone: [facility] 01-31-2023 09:00-0500 Body temperature 98 [degF] BASKET PATCHER-C Nataly Spasic Work Phone: [facility] 01-31-2023 09:00-0500 Respiratory rate 16 /min BASKET PATCHER-C Nataly Spasic Work Phone: [facility] 01-31-2023 08:46-0500 Diastolic blood pressure 57 mm[Hg] BASKET PATCHER-C Nataly Spasic Work Phone: [facility] 01-31-2023 08:46-0500 Heart rate 112 /min BASKET PATCHER-C Nataly Spasic Work Phone: [facility] 01-31-2023 08:46-0500 Systolic blood pressure 112 mm[Hg] BASKET PATCHER-C Nataly Spasic Work Phone: [facility] 01-31-2023 06:31-0500 SaO2% (BldA) [Mass fraction] 96 % BASKET PATCHER-C Nataly Spasic Work Phone: [facility] 01-31-2023 00:08-0500 Body height 160.02 cm BASKET PATCHER-C Nataly Spasic Work Phone: [facility] 01-31-2023 00:08-0500 Body weight 97.52 kg BASKET PATCHER-C Nataly Spasic Work Phone: [facility] 01-21-2023 09:56-0500 Body height 157.48 cm BASKET PATCHER-C Nataly Spasic Work Phone: [facility] 01-21-2023 09:56-0500 Body weight 81.64 kg BASKET PATCHER-C Nataly Spasic Work Phone: [facility] 12-01-2022 18:06-0400 Diastolic blood pressure 75 mm[Hg] BASKET PATCHER-C Nataly Spasic Work Phone: [facility] 12-01-2022 18:06-0400 Heart rate 109 /min BASKET PATCHER-C Nataly Spasic Work Phone: [facility] 12-01-2022 18:06-0400 Respiratory rate 17 /min BASKET PATCHER-C Nataly Spasic Work Phone: [facility] 12-01-2022 18:06-0400 SaO2% (BldA) [Mass fraction] 99 % BASKET PATCHER-C Nataly Spasic Work Phone: [facility] 12-01-2022 18:06-0400 Systolic blood pressure 123 mm[Hg] BASKET PATCHER-C Nataly Spasic Work Phone: [facility] 12-01-2022 14:32-0400 Body height 160.02 cm BASKET PATCHER-C Nataly Spasic Work Phone: [facility] 12-01-2022 14:32-0400 Body temperature 97.6 [degF] BASKET PATCHER-C Nataly Spasic Work Phone: [facility] 12-01-2022 14:32-0400 Body weight 101.2 kg BASKET PATCHER-C Nataly Spasic Work Phone: [facility] 11-20-2022 19:00-0400 Respiratory rate 16 /min BASKET PATCHER-C Nataly Spasic Work Phone: [facility] 11-20-2022 18:14-0400 Diastolic blood pressure 65 mm[Hg] BASKET PATCHER-C Nataly Spasic Work Phone: [facility] 11-20-2022 18:14-0400 Heart rate 100 /min BASKET PATCHER-C Nataly Spasic Work Phone: [facility] 11-20-2022 18:14-0400 Systolic blood pressure 131 mm[Hg] BASKET PATCHER-C Nataly Spasic Work Phone: 6(087)277-537259 [place] [address] 11-20-2022 18:05-0400 SaO2% (BldA) [Mass fraction] 99 % BASKET PATCHER-C Nataly Spasic Work Phone: 3(376)437-421559 [place] [address] 11-20-2022 17:21-0400 Body height 160.02 cm BASKET PATCHER-C Nataly Spasic Work Phone: 6(982)944-613959 [place] [address] 11-20-2022 17:21-0400 Body weight 98.88 kg BASKET PATCHER-C Nataly Spasic Work Phone: 2(771)194-992259 [place] [address] 11-19-2022 13:49-0400 Respiratory rate 16 /min BASKET PATCHER-C Nataly Spasic Work Phone: 0(254)422-355259 [place] [address] 11-19-2022 13:30-0400 Body temperature 97.4 [degF] BASKET PATCHER-C Nataly Spasic Work Phone: 0(317)100-068659 [place] [address] 11-19-2022 12:53-0400 Diastolic blood pressure 71 mm[Hg] BASKET PATCHER-C Nataly Spasic Work Phone: 4(811)984-629359 [place] [address] 11-19-2022 12:53-0400 Heart rate 109 /min BASKET PATCHER-C Nataly Spasic Work Phone: 7(548)121-556659 [place] [address] 11-19-2022 12:53-0400 Systolic blood pressure 125 mm[Hg] BASKET PATCHER-C Nataly Spasic Work Phone: [facility] 11-19-2022 12:49-0400 SaO2% (BldA) [Mass fraction] 99 % BASKET PATCHER-C Nataly Spasic Work Phone: 4(742)844-727559 [place] [address] 11-19-2022 12:23-0400 Body height 160.02 cm BASKET PATCHER-C Nataly Spasic Work Phone: 0(091)703-168305 [address] 11-19-2022 12:23-0400 Body weight 98.88 kg BASKET PATCHER-C Nataly Spasic Work Phone: 0(370)866-777459 [place] [address] 10-18-2021 05:08-0400 Diastolic blood pressure 58 mm[Hg] DO Obdulia Oneil Work Phone: [facility] 10-18-2021 05:08-0400 Heart rate 96 /min DO Obdulia Oneil Work Phone: [facility] 10-18-2021 05:08-0400 SaO2% (BldA) [Mass fraction] 98 % DO Obdulia Oneil Work Phone: [facility] 10-18-2021 05:08-0400 Systolic blood pressure 118 mm[Hg] DO Obdulia Oneil Work Phone: [facility] 10-18-2021 05:00-0400 Body temperature 98.3 [degF] DO Obdulia Oneil Work Phone: [facility] 10-18-2021 05:00-0400 Respiratory rate 16 /min DO Obdulia Oneil Work Phone: [facility] 10-18-2021 01:57-0400 Body weight 102.51 kg DO Obdulia Oneil Work Phone: [facility] 10-18-2021 01:31-0400 Body height 160.02 cm DO Obdulia Oneil Work Phone: [facility] Encounters Encounter Date Encounter Type Care Provider Facility Start: 09-19-2024 End: 09-19-2024 Office outpatient visit 15 minutes Camacho Hernandez DO Work Phone: [facility] Comment on above: Pre-op examination; Request for sterilization Start: 09-19-2024 End: 09-19-2024 Preprocedural examination done Camacho Hernandez DO Work Phone: [facility] Start: 08-17-2024 End: 08-17-2024 ambulatory Services [facility] Work Phone: Start: 08-17-2024 End: 08-17-2024 Departed Referred Nataly POLLOCK [facility] Start: 08-09-2024 End: 08-09-2024 care visit Kim QUICK Work Phone: [facility] Comment on above: 6 weeks f ollow-up ([facility]) Start: 08-09-2024 End: 08-09-2024 ambulatory KIM KHOURY Not Available Start: 07-24-2024 End: 07-24-2024 Encounter Tai Chapman MD Work Phone: [facility] 3E NICU Start: 07-17-2024 End: 07-17-2024 Encounter Tai Chapman MD Work Phone: [facility] 3W NICU Start: 07-04-2024 End: 07-04-2024 Encounter Tai Chapman MD Work Phone: [facility] 3W NICU Start: 06-30-2024 End: 06-30-2024 [facility] Start: 06-28-2024 End: 06-28-2024 [facility] Start: 06-28-2024 End: 06-30-2024 Evaluation and management of inpatient SUMEET Sommer MOORE [facility] Start: 06-26-2024 End: 06-26-2024 Clinisync Result Encounter Camacho Mary DO Work Phone: [facility] External [facility] Unsolicited Start: 06-26-2024 End: 06-26-2024 Clinisync Result Encounter Camacho Mary DO Work Phone: [facility] Unsolicited Start: 06-15-2024 End: 06-15-2024 Bamboo flowsheet Riya Alexander BASKET PATCHER Work Phone: [facility] Start: 06-15-2024 End: 06-15-2024 Bamboo flowsheet Riya Alexander BASKET PATCHER Work Phone: [facility] Start: 06-15-2024 End: 06-15-2024 Office outpatient visit 15 minutes Riya Alexander BASKET PATCHER Work Phone: [facility] Comment on above: Elevated glucose rayo erance test (Primary Dx); 30 weeks gestation of ; Third trimester Start: 06-15-2024 End: 06-15-2024 ambulatory RIYA ALEXANDER Not Available Start: 06-08-2024 End: 06-08-2024 ambulatory CAMACHO MARY Not Available Start: 06-01-2024 End: 06-01-2024 Office outpatient visit 15 minutes Camacho Mary DO Work Phone: [facility] Comment on above: Third trimester preg sascha; 28 weeks gestation of ; Upper respiratory tract infection, unspecified type; Chronic cluster headache, not intractable; History of delivery, currently ; Diet controlled gestational diabetes mellitus (GDM) in third trimester; Polyhydramnios affecting in third trimester Start: 06-01-2024 End: 06-01-2024 ambulatory CAMACHO MARY Not Available Start: 05-29-2024 End: 05-29-2024 Office outpatient new 45 minutes Trudy Cool BASKET PATCHER Work Phone: [facility] Comment on above: Strep throat (Primar y Dx); Pharyngitis, unspecified etiology; 27 weeks gestation of Start: 05-29-2024 End: 05-29-2024 ambulatory TRUDY COOL Not Available Start: 05-25-2024 End: 05-25-2024 Clinisync Result Encounter Camacho Mary DO Work Phone: [facility] External Department Unsolicited Start: 05-25-2024 End: 05-25-2024 Clinisync Result Encounter Camacho Mary DO Work Phone: [facility] External Department Unsolicited Start: 05-04-2024 End: 05-04-2024 Office outpatient visit 15 minutes Camacho Mary DO Work Phone: [facility] Comment on above: Short cervix, antepa rtum (Primary Dx); 24 weeks gestation of ; Second trimester ; Diabetes mellitus screening; Nonintractable headache, unspecified chronicity pattern, unspecified headache type Start: 05-04-2024 End: 05-04-2024 ambulatory CAMACHO HERNANDEZ Not Available Start: 05-03-2024 End: 05-03-2024 ambulatory NI CARROLL [facility] Start: 04-14-2024 End: 04-14-2024 Clinisync Result Encounter Camacho Hernandez DO Work Phone: [facility] Unsolicited Start: 04-14-2024 End: 04-14-2024 Clinisync Result Encounter Camacho Hernandez DO Work Phone: [facility] Unsolicited Start: 04-13-2024 End: 04-13-2024 Office consultation new/estab patient 60 min Ni Carroll MD Work Phone: [facility] Comment on above: delivery aft er section (Primary Dx) Start: 04-13-2024 End: 04-13-2024 Orders Only Berenice Vyas RN [facility] Comment on above: History of d [...] Carroll MD Work Phone: [facility] Start: 03-14-2024 End: 03-14-2024 Clinisync Result Encounter Camacho Mary DO Work Phone: [facility] External Department Unsolicited Start: 03-14-2024 End: 03-14-2024 Clinisync Result Encounter Camacho Mary DO Work Phone: [facility] External Department Unsolicited Start: 03-09-2024 End: 03-09-2024 Bamboo flowsheet Camacho Mary DO Work Phone: [facility] Start: 03-09-2024 End: 03-09-2024 Bamboo flowsheet Camacho Mary DO Work Phone: [facility] Start: 03-09-2024 End: 03-09-2024 Office outpatient visit 15 minutes Camacho Mary DO Work Phone: [facility] Comment on above: Second trimester pre gnancy; 16 weeks gestation of ; History of delivery, currently ; Diabetes mellitus screening; History of gestational diabetes Start: 03-09-2024 End: 03-09-2024 ambulatory CAMACHO MARY Not Available Start: 02-25-2024 End: 02-25-2024 Clinisync Result Encounter Camacho Mary DO Work Phone: [facility] External Department Unsolicited Start: 02-25-2024 End: 02-25-2024 Clinisync Result Encounter Camacho Mary DO Work Phone: [facility] External Department Unsolicited Start: 02-03-2024 End: 02-03-2024 ambulatory [facility] Mary Nurse [facility] Comment on above: GA: 11w1d Start: 11-03-2023 ambulatory Nataly E Spasic Facility :[facility] Start: 10-20-2023 Registered Recurring BASKET PATCHER-C Andrez a Spasic Work Phone: [facility] Acute Work Phone: Start: 10-20-2023 End: 10-20-2023 ambulatory BASKET PATCHER-C Nataly E Spasic Work Phone: [facility] Work Phone: Start: 10-20-2023 End: 10-20-2023 Patient encounter procedure BASKET PATCHER-C Nataly Spasic Work Phone: [facility] Ambulatory Work Phone: Start: 10-07-2023 End: 10-07-2023 Patient encounter procedure BASKET PATCHER-C Nataly Spasic Work Phone: [facility] [place] Work Phone: Start: 10-07-2023 End: 10-07-2023 ambulatory BASKET PATCHER-C Nataly E Spasic Work Phone: [facility] Work Phone: Start: 10-04-2023 End: 10-05-2023 Emergency department patient visit BASKET PATCHER-C Nataly Spasic Work Phone: [facility] Work Phone: Start: 09-30-2023 End: 09-30-2023 ambulatory BASKET PATCHER-C Nataly E Spasic Work Phone: [facility] Work Phone: Start: 09-30-2023 End: 09-30-2023 Departed Referred BASKET PATCHER-C Nataly Spasic Work Phone: [facility] [place] Work Phone: Start: 09-26-2023 End: 09-27-2023 Emergency department patient visit BASKET PATCHER-C Nataly Spasic Work Phone: [facility] Work Phone: Start: 08-20-2023 End: 08-21-2023 Emergency department patient visit BASKET PATCHER-C Nataly Spasic Work Phone: [facility] Work Phone: Start: 08-03-2023 End: 08-03-2023 ambulatory BASKET PATCHER-C Nataly Spasic Work Phone: [facility] Work Phone: Start: 08-03-2023 End: 08-03-2023 Departed Referred BASKET PATCHER-C Nataly Spasic Work Phone: [facility] Start: 03-17-2023 End: 03-17-2023 ambulatory PHYSICIAN NO [facility] Work Phone: Start: 03-17-2023 End: 03-17-2023 Patient encounter procedure PHYSICIAN NO [facility] [place] Work Phone: Start: 03-04-2023 End: 03-04-2023 ambulatory PHYSICIAN NO [facility] Work Phone: Start: 03-04-2023 End: 03-04-2023 Departed Referred PHYSICIAN NO [facility] Start: 02-13-2023 End: 02-13-2023 Evaluation and management of inpatient BASKET PATCHER-C Nataly Spasic Work Phone: [facility] [place] Work Phone: Start: 02-01-2023 End: 02-01-2023 ambulatory BASKET PATCHER-C Nataly E Spasic Work Phone: [facility] Work Phone: Start: 02-01-2023 End: 02-01-2023 Patient encounter procedure BASKET PATCHER-C Nataly Spasic Work Phone: [facility] - O/P Start: 01-30-2023 End: 01-31-2023 ambulatory BASKET PATCHER-C Nataly E Spasic Work Phone: [facility] Work Phone: Start: 01-30-2023 End: 01-31-2023 Patient encounter procedure BASKET PATCHER-C Nataly Spasic Work Phone: [facility] - O/P Start: 01-22-2023 End: 01-22-2023 ambulatory BASKET PATCHER-C Nataly E Spasic Work Phone: [facility] Work Phone: Start: 01-22-2023 End: 01-22-2023 Patient encounter procedure BASKET PATCHER-C Nataly Spasic Work Phone: [facility] - O/P Start: 01-21-2023 End: 01-21-2023 ambulatory BASKET PATCHER-C Nataly E Spasic Work Phone: [facility] Work Phone: Start: 01-21-2023 End: 01-21-2023 Patient encounter procedure BASKET PATCHER-C Nataly Spasic Work Phone: [facility] - O/P Start: 01-05-2023 End: 01-05-2023 ambulatory BASKET PATCHER-C Nataly E Spasic Work Phone: [facility] Work Phone: Start: 01-05-2023 End: 01-05-2023 Departed Referred BASKET PATCHER-C Nataly Spasic Work Phone: [facility] [place] Work Phone: Start: 12-22-2022 End: 12-22-2022 ambulatory BASKET PATCHER-C Nataly E Spasic Work Phone: [facility] Work Phone: Start: 12-22-2022 End: 12-22-2022 Patient encounter procedure BASKET PATCHER-C Nataly Spasic Work Phone: [facility] [place] Work Phone: Start: 12-08-2022 End: 12-08-2022 ambulatory BASKET PATCHER-C Nataly E Spasic Work Phone: [facility] Work Phone: Start: 12-08-2022 End: 12-08-2022 Departed Referred BASKET PATCHER-C Nataly Spasic Work Phone: [facility] [place] Work Phone: Start: 12-03-2022 End: 12-03-2022 ambulatory BASKET PATCHER-C Nataly E Spasic Work Phone: [facility] Work Phone: Start: 12-03-2022 End: 12-03-2022 Departed Referred BASKET PATCHER-C Nataly Spasic Work Phone: [facility] Start: 12-01-2022 End: 12-01-2022 Emergency department patient visit BASKET PATCHER-C Nataly Spasic Work Phone: [facility]Emergency [facility] Work Phone: Start: 11-21-2022 End: 11-21-2022 ambulatory BASKET PATCHER-C Nataly E Spasic Work Phone: [facility] Work Phone: Start: 11-21-2022 End: 11-21-2022 Patient encounter procedure BASKET PATCHER-C Nataly Spasic Work Phone: [facility] [place] [facility] - O/P Start: 11-20-2022 End: 11-20-2022 ambulatory BASKET PATCHER-C Nataly E Spasic Work Phone: [facility] Work Phone: Start: 11-20-2022 End: 11-20-2022 Patient encounter procedure BASKET PATCHER-C Ntaaly Spasic Work Phone: [facility] - O/P Start: 11-19-2022 End: 11-19-2022 ambulatory BASKET PATCHER-C Nataly E Spasic Work Phone: [facility] Work Phone: Start: 11-19-2022 End: 11-19-2022 Patient encounter procedure BASKET PATCHER-C Nataly Spasic Work Phone: [facility] - O/P Start: 07-13-2022 End: 07-14-2022 ambulatory YNES HARDEN . Facility:[facility] Start: 06-23-2022 End: 06-23-2022 ambulatory BASKET PATCHER-C Nataly E Spasic Work Phone: [facility] Work Phone: Start: 06-23-2022 End: 06-23-2022 Patient encounter procedure BASKET PATCHER-C Nataly Spasic Work Phone: [facility] Work Phone: Start: 06-16-2022 End: 06-16-2022 Departed Referred BASKET PATCHER-C Nataly Spasic Work Phone: [facility] Start: 06-04-2022 End: 06-04-2022 ambulatory BASKET PATCHER-C Nataly E Spasic Work Phone: [facility] Work Phone: Start: 06-04-2022 End: 06-04-2022 Patient encounter procedure BASKET PATCHER-C Nataly Spasic Work Phone: [facility]Ul[facility]ound [facility] [place] Work Phone: Start: 06-03-2022 End: 06-03-[address] SHARMILA BAIG . Facility:H1 Start: 05-28-2022 End: 05-28-2022 ambulatory BASKET PATCHER-C Nataly Toure Work Phone: [facility] Work Phone: Start: 05-28-2022 End: 05-28-2022 Departed Referred BASKET PATCHER-C Nataly Toure Work Phone: [facility] Start: 03-15-2022 End: 03-16-2022 ambulatory CORRINA DHALIWAL Facility:[facility]1 Start: 10-18-2021 End: 10-18-2021 Evaluation and management of inpatient DO Obdulia Oneil Work Phone: [facility] Labor and Delivery Start: 10-16-2021 End: 10-16-2021 Departed Referred DO Obdulia Oneil Work Phone: [facility] [place] Start: 08-31-2021 End: 08-31-[address] CAMACHO HERNANDEZ . Facility: Start: 08-08-2021 End: 08-08-2021 ambulatory CORRINA DHALIWAL Facility:[facility]1 Start: 07-21-2021 End: 07-21-2021 Patient encounter procedure DO Obdulia Oneil Work Phone: [facility] [place] Start: 08-03-2018 End: 08-04-2018 Patient encounter procedure SHARLA HICKS Facility:[facility] Procedures Date Procedure Procedure Detail Performing Clinician Start: 06-28-2024 Antibody screen NI CARROLL Comment on above: Performed By: #### T SC #### [facility] [address] [place] [address] VIR Start: 06-26-2024 TB UA (CLEAN/CATCH) DIRECTOR OF SEARCH ENGINE MARKETING/MICRO IF IND. Camacho Hernandez DO Work Phone: Start: 06-15-2024 Urnls dip stick/tabl et rgnt non-auto w/o micrscp Riya Alexander BASKET PATCHER Work Phone: Start: 06-01-2024 Urnls dip stick/tabl et rgnt non-auto w/o micrscp Camacho Hernandez DO Work Phone: Start: 05-29-2024 Iadna streptococcus group a amplified probe tq Gopal Crouch DO Work Phone: Start: 05-25-2024 ALL CBC WITH AUTO DIFF Camacho Mary DO Work Phone: Start: 05-04-2024 Urnls dip stick/tabl et rgnt non-auto w/o micrscp Camacho Mary DO Work Phone: Start: 04-14-2024 TBH UA (CLEAN/CATCH) DIRECTOR OF SEARCH ENGINE MARKETING/MICRO IF IND. Camacho Mary DO Work Phone: Start: 04-06-2024 RECURRENT VAGINITIS (HTRX) Kim QUICK Work Phone: Start: 04-06-2024 Urnls dip stick/tabl et rgnt non-auto w/o micrscp Kim QUICK Work Phone: Start: 04-06-2024 IGP,APTIMA HPV,AGE GDLN Kim QUICK Work Phone: Start: 04-06-2024 Microscopic observat ion [Identifier] in Cervix by Cyto stain Tai Chapman MD Work Phone: Start: 03-14-2024 US OB CERVICAL LENGTH C mildred Hernandez DO Work Phone: Start: 03-09-2024 Urnls dip stick/tabl et rgnt non-auto w/o micrscp Camacho Mary DO Work Phone: Start: 02-25-2024 BOX TEST Camacho Ervinzi o DO Work Phone: Start: 02-25-2024 FREE CELL DNA (NON-[facility]) Not In System Ref Prov Start: 02-03-2024 End: 02-03-2024 Urnls dip stick/tablet rgnt non-auto w/o micrscp Camacho Mary DO Work Phone: Start: 10-07-2023 Diagnostic radiograp hy of abdomen BASKET PATCHERPraveena Jerniganc Work Phone: Start: 10-07-2023 Ultrasonography of liver BASKET PATCHER-C Nataly Toure Work Phone: Start: 10-07-2023 US scan of thyroid BASKET PATCHER-C Nataly Toure Work Phone: Start: 09-26-2023 CT of lumbar spine w ithout contrast BASKET PATCHER-C Nataly Toure Work Phone: Start: 09-26-2023 Urine culture BASKET PATCHER-C Andrez Toure Work Phone: Start: 02-13-2023 Urine culture PHYSICIAN NO FAMILY Start: 02-01-2023 Urine culture BASKET PATCHER-C Andrez Toure Work Phone: Start: 01-05-2023 Streptococcus agalac tiae culture BASKET PATCHER-C Nataly Toure Work Phone: Start: 12-01-2022 Plain chest X-ray BASKET PATCHER-C Nataly Toure Work Phone: Start: 12-01-2022 Respiratory Panel (PCR) BASKET PATCHER-C Nataly Toure Work Phone: Start: 11-20-2022 Ultrasound scan - obstetric BASKET PATCHER-C Nataly Toure Work Phone: Start: 06-04-2022 US scan of gallbladder BASKET PATCHER-C Nataly Toure Work Phone: Start: 08-03-2018 Anes integ extremiti es ant trunk & perineum nos AREN PITT Start: 08-03-2018 Repair nail bed SHARLA E BRAHEIM SARS Antigen (LFIA) DO Luis Enrique rios Thad Work Phone: Streptococcus agalac tiae culture DO Obdulia Oneil Work Phone: Plan of Treatment Date Care Activity Detail Author Start: 02-13-2033 DTaP,Tdap and Td Vac cines (5 - Td or Tdap) DTaP,Tdap and Td Vaccines (5 - Td or Tdap) [facility] Start: 04-06-2027 Screening for malign ant neoplasm of cervix Pap Smear [facility] Start: 06-30-2025 Tobacco Screening Tobacco Screening [facility] Start: 06-28-2025 Adult BMI Screening Adult BMI Screen ing [facility] Start: 04-13-2025 Adult BMI Screening Adult BMI Screen ing [facility] Start: 04-13-2025 Tobacco Screening Tobacco Screening [facility] Start: 04-13-2025 End: 04-13-2025 US MFM with or without consult US MFM with or without consult Imaging Routine History of delivery, currently Expected: 04/13/2025 (Approximate), Expires: 04/13/2025 [facility] Work Phone: Comment on above: Expected: 04/13/2025 (Approximate), Expires: 04/13/2025 Start: 10-16-2024 Influenza vaccination [facility] Start: 08-25-2024 End: 08-25-2024 Clinical Support 08/25/2024 9:40 AM EDT Clinical Support [facility] [address] [place] [id number] [facility] Start: 07-06-2024 End: 07-06-2024 Patient encounter procedure 07/06/2024 11:50 AM EDT Routine [facility] [address] [place] [phone] Camacho Hernandez, DO [address] [place] [address] [facility] Start: 06-29-2024 End: 06-29-2024 Professional / ancillary services management 06/29/2024 9:00 AM EDT Ancillary Procedure [facility] [address] [place] [phone] [facility] Start: 06-15-2024 End: 06-15-2025 Measurement of glucose 3 hours after glucose challenge for glucose tolerance test Glucose tolerance, 3 hours Lab Routine Elevated glucose tolerance test Expected: 06/15/2024 (Approximate), Expires: 06/15/2025 [facility] Work Phone: Comment on above: Expected: 06/15/2024 (Approximate), Expires: 06/15/2025 Start: 06-15-2024 End: 09-15-2024 US Pelvis transvaginal US OB transvaginal Imaging Routine Elevated glucose tolerance test Expected: 06/15/2024, Expires: 09/15/2024 [facility] Comment on above: Expected: 06/15/2024 , Expires: 09/15/2024 Start: 06-15-2024 End: 06-15-2024 Patient encounter procedure [facility] Comment on above: Arrived Start: 06-08-2024 End: 06-08-2024 Professional / ancillary services management 06/08/2024 8:00 AM EDT Ancillary Procedure [facility] [address] [place] [address] [facility] Start: 06-01-2024 End: 10-01-2024 US for US OB follow up transabdominal approach Imaging Routine Third trimester Chronic cluster headache, not intractable Diet controlled gestational diabetes mellitus (GDM) in third trimester Polyhydramnios affecting in third trimester Expected: 06/01/2024, Expires: 10/01/2024 [facility] Work Phone: Comment on above: Expected: 06/01/2024 , Expires: 10/01/2024 Start: 06-01-2024 End: 06-01-2024 Patient encounter procedure 06/01/2024 9:50 AM EDT Routine [facility] [address] [place] [phone] Camacho Hernandez, [address] [place] [address] [facility] Start: 06-01-2024 End: 06-01-2024 Professional / ancillary services management 06/01/2024 9:00 AM EDT Ancillary Procedure [facility] [address] [place] [phone] [facility] Start: 05-09-2024 End: 05-09-2024 Patient encounter procedure 05/09/2024 11:15 AM EDT Appointment [facility] [address] [place] [address] [facility] Start: 05-04-2024 End: 05-04-2025 CBC panel - Blood by Automated count CBC Lab Routine Diabetes mellitus screening Expected: 05/04/2024 (Approximate), Expires: 05/04/2025 [facility] Work Phone: Comment on above: Expected: 05/04/2024 (Approximate), Expires: 05/04/2025 Start: 05-04-2024 End: 05-04-2025 Measurement of glucose 1 hour after glucose challenge for glucose tolerance test Glucose tolerance, 1 hour Lab Routine Diabetes mellitus screening Expected: 05/04/2024 (Approximate), Expires: 05/04/2025 [facility] Comment on above: Expected: 05/04/2024 (Approximate), Expires: 05/04/2025 Start: 05-04-2024 End: 05-04-2025 US Pelvis transvaginal US OB transvaginal Imaging Routine Short cervix, antepartum Expected: 05/04/2024, Expires: 05/04/2025 [facility] Work Phone: Comment on above: Expected: 05/04/2024 , Expires: 05/04/2025 Start: 05-04-2024 End: 05-04-2024 Patient encounter procedure 05/04/2024 11:10 AM EDT Office Visit [facility] [address] [place] [phone] Camacho Hernandez DO [address] [place] [address] [facility] Start: 05-02-2024 End: 05-02-2024 Patient encounter procedure 05/02/2024 9:15 AM EDT Appointment [facility] [address] [place] [phone] [facility] Start: 04-13-2024 End: 04-13-2024 Patient encounter procedure [facility] Imaging Start: 04-06-2024 End: 04-06-2025 [...] gestational diabetes Expected: 03/09/2024 (Approximate), Expires: 03/09/2025 [facility] Comment on above: Expected: 03/09/2024 (Approximate), Expires: 03/09/2025 Start: 03-09-2024 End: 03-09-2025 US Pelvis transvaginal US OB transvaginal Imaging Routine History of delivery, currently Expected: 03/09/2024, Expires: 03/09/2025 [facility] Comment on above: Expected: 03/09/2024 [...] gestational age Expected: 02/03/2024 (Approximate), Expires: 02/02/2025 [facility] Work Phone: Comment on above: Expected: 02/03/2024 (Approximate), Expires: 02/02/2025 Start: 02-03-2024 End: 02-02-2025 Drugs of abuse panel - Urine by Screen method Rapid drug screen, urine Lab Routine , unspecified gestational age Encounter for supervision of normal first in first trimester Expected: 02/03/2024 (Approximate), Expires: 02/02/2025 [facility] Comment on above: Expected: 02/03/2024 (Approximate), Expires: 02/02/2025 Start: 02-03-2024 End: 02-02-2025 US Pelvis transvaginal US OB transvaginal Imaging Routine Missed menses Expected: 02/03/2024 (Approximate), Expires: 02/02/2025 [facility] Comment on above: Expected: 02/03/2024 (Approximate), Expires: 02/02/2025 Start: 10-17-2023 COVID-19 Vaccine ( season) COVID-19 Vaccine ( season) [facility] Start: 10-17-2023 Influenza vaccination N [facility] Start: 09-26-2023 CT Lumbar spine WO contrast [facility] Start: 09-26-2023 CT of lumbar spine w ithout contrast CT lumbar spine wo con [facility] Start: 09-26-2023 Bacteria identified in Urine by Culture [facility] Start: 08-20-2023 [facility] Start: 02-14-2023 [facility] Start: 02-13-2023 End: 02-13-2023 [facility] Start: 02-13-2023 Bacteria identified in Urine by Culture [facility] Start: 02-13-2023 Delivery of Products of Conception, External Approach Delivery of Products of Conception, External Approach [facility] Start: 02-13-2023 Drainage of Amniotic Fluid, Therapeutic from Products of Conception, Via Natural or Artificial Opening Drainage of Amniotic Fluid, Therapeutic from Products of Conception, Via Natural or Artificial Opening [facility] Start: 02-13-2023 Hospital admission [facility] Start: 02-13-2023 Hospital admission [facility] Start: 02-13-2023 End: 02-13-2023 [facility] Start: 02-01-2023 [facility] Start: 02-01-2023 Hospital admission [facility] Start: 02-01-2023 Bacteria identified in Urine by Culture [facility] Start: 01-31-2023 [facility] Start: 01-30-2023 Hospital admission [facility] Start: 01-22-2023 [facility] Start: 01-21-2023 [facility] Start: 01-05-2023 Group B Streptococcu s Culture Group B Streptococcus Culture [facility] Start: 12-01-2022 Respiratory Panel (PCR) Respiratory Panel (PCR) [facility] Start: 11-21-2022 [facility] Start: 11-20-2022 [facility] Start: 11-20-2022 Hospital admission [facility] Start: 11-19-2022 [facility] Start: 11-19-2022 Hospital admission [facility] Start: 11-19-2022 [facility] Start: 10-18-2021 End: 10-18-2021 [facility] Work Phone: Start: 10-18-2021 Hospital admission [facility] Work Phone: Start: 2020 Screening for malign ant neoplasm of cervix Pap Smear [facility] [employer] [facility] Start: 02-16-2020 DTaP,Tdap and Td Vac cines (2 - Td or Tdap) DTaP,Tdap and Td Vaccines (2 - Td or Tdap) [facility] Start: 2017 Adult BMI Follow Up Plan Adult BMI Follow Up Plan [facility] Start: 2017 Adult BMI Screening Adult BMI Screen ing [facility] Start: 2011 Depression Screening Depression Scre ening [facility] Start: 2011 Tobacco Screening Tobacco Screening [facility] Bacteria identified in Urine by Culture [facility] Bacteria identified in Urine by Culture Urine culture Microbiology Routine Missed menses Ordered: 02/03/2024 [facility] Comment on above: Ordered: 02/03/2024 CBC W Auto Different ial panel - Blood CBC and differential Lab Routine Missed menses , unspecified gestational age Ordered: 02/03/2024 [facility] Comment on above: Ordered: 02/03/2024 CHLAMYDIA TRACHOMATI S (GENITO/STI) CHLAMYDIA TRACHOMATIS (GENITO/STI) Lab Routine STD exposure Vaginal discharge Ordered: 04/06/2024 [facility] Comment on above: Ordered: 04/06/2024 Cytology Cervical or vaginal smear or scraping study Pap Smear Pathology and Cytology Routine Well woman exam with routine gynecological exam Ordered: 04/06/2024 [facility] Comment on above: Ordered: 04/06/2024 Glucose measurement estimated from glycated hemoglobin [facility] Hemoglobin A1c/Hemoglobin.total in Blood [facility] Hemoglobin A1c/Hemoglobin.total in Blood Hemoglobin A1c Lab Routine Missed menses , unspecified gestational age Ordered: 02/03/2024 [facility] Comment on above: Ordered: 02/03/2024 Hepatitis B virus burch rface Ag [Presence] in Serum or Plasma by Immunoassay Hepatitis B surface antigen Lab Routine Missed menses , unspecified gestational age Ordered: 02/03/2024 [facility] Comment on above: Ordered: 02/03/2024 Hepatitis C virus Ab [Presence] in Serum or Plasma by Immunoassay Hepatitis C antibody Lab Routine Missed menses , unspecified gestational age Ordered: 02/03/2024 [facility] Comment on above: Ordered: 02/03/2024 HIV-1/HIV-2 antigen/antibody combination immunoassay HIV-1 and HIV-2 antibodies Lab Routine Missed menses , unspecified gestational age Ordered: 02/03/2024 [facility] Comment on above: Ordered: 02/03/2024 Insulin [Units/volum e] in Serum or Plasma [facility] Insulin [Units/volum e] in Serum or Plasma [facility] Insulin [Units/volum e] in Serum or Plasma [facility] Neisseria gonorrhoea e DNA [Presence] in Unspecified specimen by SVETLANA with probe detection Neisseria gonorrhea DNA probe, direct Lab Routine STD exposure Vaginal discharge Ordered: 04/06/2024 [facility] Comment on above: Ordered: 04/06/2024 Patient Education [facility] Work Phone: Patient referral [facility] Work Phone: Reagin Ab [Presence] in Serum by RPR [facility] Work Phone: Reagin Ab [Presence] in Serum by RPR [facility] Reagin Ab [Presence] in Serum by RPR RPR Lab Routine Missed menses , unspecified gestational age Ordered: 02/03/2024 [facility] Comment on above: Ordered: 02/03/2024 Respiratory pathogen s DNA and RNA panel - Nasopharynx by SVETLANA with non-probe detection [facility] Rubella antibody, IgG Rubella an tibody, IgG Lab Routine Missed menses , unspecified gestational age Ordered: 02/03/2024 [facility] Comment on above: Ordered: 02/03/2024 Streptococcus agalac tiae [Presence] in Unspecified specimen by Organism specific culture [facility] Streptococcus pyogen es DNA [Identifier] in Unspecified specimen by SVETLANA with probe detection STREP DNA PROBE Point of Care Testing Routine Pharyngitis, unspecified etiology 05/29/2024 12:45 PM EDT [facility] [employer] Work Phone: SURESWAB(R) ADVANCED VAGINITIS PLUS, TMA SURESWAB(R) ADVANCED VAGINITIS PLUS, TMA Pathology and Cytology Routine STD exposure Vaginal discharge Ordered: 04/06/2024 [facility] Work Phone: Comment on above: Ordered: 04/06/2024 Thyroperoxidase Ab [Units/volume] in Serum or Plasma [facility] Thyrotropin [Units/v olume] in Serum or Plasma [facility] Thyrotropin [Units/v olume] in Serum or Plasma TSH Lab Routine , unspecified gestational age Encounter for supervision of normal first in first trimester Ordered: 02/03/2024 [facility] Comment on above: Ordered: 02/03/2024 Thyroxine (T4) free index in Serum or Plasma by calculation [facility] Thyroxine measurement [facility] Triiodothyronine (T3 ) [Mass/volume] in Serum or Plasma [facility] Triiodothyronine res in uptake (T3RU) in Serum or Plasma [facility] Immunizations Immunization Date Immunization Notes Care Provider Fa cility 11-21-2023 influenza virus vaccine, unspecified formulation Tai Chapman MD Work Phone: [facility] 04-09-2023 influenza virus vaccine, unspecified formulation [facility] 02-13-2023 tetanus toxoid, reduced diphtheria toxoid, and acellular pertussis vaccine, adsorbed BASKET PATCHER-C Nataly Toure Work Phone: [facility] 01-10-2021 influenza, injectable, quadrivalent, preservative free DO Obdulia Oneil Work Phone: [facility] 02-15-2010 tetanus toxoid, reduced diphtheria toxoid, and acellular pertussis vaccine, adsorbed [facility] Nurse [facility] Work Phone: 12-13-2008 novel [id number], preservative-free, injectable [facility] 12-13-2008 influenza virus vaccine, unspecified formulation Ni Carroll MD Work Phone: [facility] 07-21-2000 hepatitis B vaccine, pediatric or pediatric/adolescent dosage [facility] 07-21-2000 measles, mumps and rubella virus vaccine [facility] 1999 poliovirus vaccine, inactivated [facility] NEGATED: Highlighted row has not occurred!01-10-2021 tetanus toxoid, reduced diphtheria toxoid, and acellular pertussis vaccine, adsorbed DO Obdulia Oneil Work Phone: [facility] Payers Date Payer Category Payer Commercial Managed C are - POS [employer] [id number] 2024 Managed Care HMO (unspecified) [employer] [id number] 2024 Private Health Insurance [id number] 2023 Self-pay [id number] 2021 Medicaid (Managed Care) [employer] [id number] 1999 Unknown [id number] 2.16.840.1.971321.3.579. 2.647 1999 Unknown [id number] 2.16.840.1.627145.3.579. 2.593 1999 Unknown [id number] 2.16.840.1.387928.3.579. 2.593 1999 Unknown [id number] 2.16.840.1.637988.3.579. 2.593 1999 Unknown [id number] 2.16.840.1.633149.3.579. 2.593 1999 Unknown [id number] 2.16.840.1.691565.3.579. 2.593 1999 Unknown [id number] 2.16.840.1.252471.3.579. 2.1286 1999 Unknown [id number] 2.16.840.1.069261.3.579. 2.1286 1999 Unknown [id number] 2.16.840.1.719159.3.579. 2.1286 1999 Unknown [id number] 2.16.840.1.178803.3.579. 2.1286 1999 Unknown [id number] 2.16.840.1.999104.3.579. 2.1286 1999 Unknown [id number] 2.16.840.1.913555.3.579. 2.1286 1999 Unknown [id number] 2.16.840.1.425683.3.579. 2.1259 1999 Unknown [id number] 2.16.840.1.738567.3.579. 2.1259 1999 Unknown [id number] 2.16.840.1.135148.3.579. 2.1259 1999 Unknown [id number] 2.16.840.1.773454.3.579. 2.1259 1999 Unknown [id number] 2.16.840.1.534806.3.579. 2.1259 1999 Unknown [id number] 2.16.840.1.922781.3.579. 2.1259 1999 Unknown [id number] 2.16.840.1.938197.3.579. 2.1259 1999 Unknown [id number] 2.16.840.1.466067.3.579. 2.1259 1999 Unknown [id number] 2.16.840.1.216327.3.579. 2.1259 1999 Unknown [id number] 2.16.840.1.891232.3.579. 2.1259 1994 Medicaid HMO [id number] 1959 Private Health Insurance [id number] 1959 Unknown [id number] Unknown [place] [employer]/ [id number] Unknown [id number] 2.16840.1.064733.3.579. 2.531 Unknown [id number] 2.16840.1.410090.3.579. 2.531 Unknown [id number] 2.16840.1.246720.3.579. 2.531 Unknown [id number] 2.16840.1.062402.3.579. 2.531 Unknown [id number] 2.16840.1.008549.3.579. 2.531 Unknown [id number] 2.16840.1.344904.3.579. 2.531 Social History Date Type Detail Facility Start: 10-18-2021 End: 07-28-2022 Tobacco smoking status NHIS Never smoked tobacco (finding) [facility] Start: 2000 Sex Assigned At Female [facility] Start: 07-28-2022 End: 03-17-2024 Tobacco use and exposure Smokeless tobacco non-user [facility] Start: 02-03-2024 End: 09-19-2024 Alcoholic beverage intake Ex-drinker (finding) [facility] Start: 02-12-2023 End: 02-03-2024 History of Social function [facility] Start: 02-12-2023 End: 02-03-2024 Tobacco use panel [facility] Start: 08-24-2022 Education [facility] Start: 08-24-2022 Alcohol Comment none with preg sascha, Caffeine intake: none [facility] Start: [facility]01-[facility]23 [facility] Start: [facility] Sex assigned at Not on file [facility] Start: 04-29-2022 Gender identity Identifies as female gender (finding) [facility] Childcare Unknown [facility] Start: 09-20-2014 [facility] NEGATED: Highlighted row [facility] Medical Equipment Procedure Code Equipment Code Equipment Origin al Text Equipment Identifier Dates 1 strip by In Vi tro route Daily Use in the morning prior to breakfast, 1 hour after each meal for a total of 4times daily. [id number] Start: 05-29-2024 End: 06-28-2024 1 each by In Vit ro route Daily Use to check FSBS four times daily [id number] Start: 05-29-2024 End: 06-28-2024 Goals Date Patient Goal Desired Activity /State Personal health goal Functional Status Date Assessment Result Facility 02-13-2023 Functional status Patient Not at Baseline [facility] Work Phone: Mental Status Date Assessment Result Facility 02-13-2023 Cognitive function Cognitive Sta tus Patient Not at Baseline [facility] Work Phone: Clinical Notes 10-18-2021 to 09-19-2024 Rosalind Key - 09/19/2024 9:50 AM YNES Guzman - 08/09/2024 11:30 AM EDTLactation Note - Andie Myers RN - 07/24/2024 12:39 AM EDTLactation Note - Andie Myers RN - 07/24/2024 12:39 AM EDT Note Date & Type Note Facility 09-19-2024 History of Presen t illness Narrative Reason for Appointment: Patient ID: Rosette Alba is a 24 y.o. female who presents for Pre-op Visit Patient presents today for Pre Op appointment. Patient is scheduled to undergo Da Seferino assisted Bilateral Laparoscopic Salpingectomy on 10-13-[address] Hernandez at [facility]. MEDICATIONS Current Outpatient Medications Medication Instructions acetaminophen-codeine (Tylenol w/ Codeine #3) 300-30 MG tablet 1 tablet, Oral, Every 6 hours PRN promethazine (PHENERGAN) 12.5 mg, Oral, Every 6 hours PRN, Take 1 tablet by mouth every 6 hours as needed for nausea. ALLERGIES No Known Allergies PROBLEMS Active Ambulatory Problems Diagnosis Date Noted Amenorrhea, secondary 06/25/2022 Amenorrhea 06/25/2022 Anxiety 06/25/2022 Calculus of gallbladder with acute on chronic cholecystitis without obstruction 06/25/2022 History of delivery, currently ([facility]) 06/25/2022 Mixed anxiety and depressive disorder 06/25/2022 Other specified related conditions, third trimester ([facility]) 06/25/2022 Polyhydramnios affecting in third trimester ([facility]) 06/25/2022 Right upper quadrant pain 06/25/2022 Resolved Ambulatory Problems Diagnosis Date Noted Gestational diabetes mellitus (GDM), antepartum ([facility]) 06/25/2022 Past Medical History: Diagnosis Date Family history of cancer History of UTI Hx of thyroid disease (normal spontaneous vaginal delivery) ([facility]) Varicella zoster HISTORY PAST MEDICAL HISTORY SOCIAL HISTORY Past Medical History: Diagnosis Date Anxiety was using Lexapro weaned off with Family history of cancer History of UTI Hx of thyroid disease is not taking any medications. (normal spontaneous vaginal delivery) ([facility]) x2 Varicella zoster Social History Tobacco Use [...] nursing note reviewed. Exam conducted with a director of global sales present. Vitals: Estimated body mass index is 41.12 kg/m as calculated from the following: Height as of 07/28/22: 5' 3 . Weight as of 08/09/24: 232 lb 1.9 oz. BP: No LMP recorded. ASSESSMENT & PLAN ICD-10-CM 1. Pre-op examination Z01.818 2. Request for sterilization Z30.2 Pre Op: Patient is doing well but requests sterilization. I have discussed conservative management vs. surgical management with the patient in detail and patient desires surgical management at this time. Patient will undergo Da Seferino assisted Bilateral Laparoscopic Salpingectomy on 10-13-24. Surgical consents were signed, mmc was reviewed, and patient is to proceed to [facility] OR. Follow Up: Patient is to follow up between 1-2 weeks post operative to assess proper healing and recovery from procedure. Documented by Deborah Steen LPN on behalf of: Camacho Hernandez DO documented in this encounter [facility] 08-09-2024 History of Presen t illness Narrative Reason for Appointment: Patient ID: Rosetet Alba is a 24 y.o. female who presents for Care Patient presents today for Post Follow Up appointment. MEDICATIONS Current Outpatient Medications Medication Instructions acetaminophen-codeine (Tylenol w/ Codeine #3) 300-30 MG tablet 1 tablet, Oral, Every 6 hours PRN promethazine (PHENERGAN) 12.5 mg, Oral, Every 6 hours PRN, Take 1 tablet by mouth every 6 hours as needed for nausea. ALLERGIES No Known Allergies PROBLEMS Active Ambulatory Problems Diagnosis Date Noted Amenorrhea, secondary 06/25/2022 Amenorrhea 06/25/2022 Anxiety 06/25/2022 Calculus of gallbladder with acute on chronic cholecystitis without obstruction 06/25/2022 History of delivery, currently ([facility]) 06/25/2022 Mixed anxiety and depressive disorder 06/25/2022 Other specified related conditions, third trimester ([facility]) 06/25/2022 Polyhydramnios affecting in third trimester ([facility]) 06/25/2022 Right upper quadrant pain 06/25/2022 Resolved Ambulatory Problems Diagnosis Date Noted Gestational diabetes mellitus (GDM), antepartum ([facility]) 06/25/2022 Past Medical History: Diagnosis Date Family history of cancer History of UTI Hx of thyroid disease (normal spontaneous vaginal delivery) ([facility]) Varicella zoster HISTORY PAST MEDICAL HISTORY SOCIAL HISTORY Past Medical History: Diagnosis Date Anxiety was using Lexapro weaned off with Family history of cancer History of UTI Hx of thyroid disease is not taking any medications. (normal spontaneous vaginal delivery) ([facility]) x2 Varicella zoster Social History Tobacco Use [...] Exam Constitutional: Appearance: Normal appearance. She is normal weight. HENT: Head: Normocephalic. Cardiovascular: Rate and Rhythm: Normal rate. Pulses: Normal pulses. Pulmonary: Effort: Pulmonary effort is normal. Breath sounds: Normal breath sounds. Abdominal: Palpations: Abdomen is soft. Musculoskeletal: General: Normal range of motion. Neurological: General: No focal deficit present. Mental Status: She is alert and oriented to person, place, and time. Psychiatric: Mood and Affect: Mood normal. Behavior: Behavior normal. Thought Content: Thought content normal. Judgment: Judgment normal. Vitals and nursing note reviewed. Vitals: Estimated body mass index is 41.12 kg/m as calculated from the following: Height as of 23: 5' 3 . Weight as of this encounter: 232 lb 1.9 oz. BP: 110/70 No LMP recorded. ASSESSMENT & PLAN ICD-10-CM 1. 6 weeks follow-up ([facility]) Z39.2 Post Follow Up: Patient is doing well. Patient presents today for 6 week visit. Patient is s/p Vaginal delivery. Patient states depression but denies suicidal and homicidal ideations. All options were discussed with the patient regarding control and patient desires Depo Provera Injections scheduling for salpingectomy. Follow Up: Patient is to return for annual unless needed otherwise. Documented by YNES Xiong on behalf of: YNES Xiong documented in this encounter [facility] 07-24-2024 Miscellaneous Notes This note was copied from a baby's chart. Call as needed to schedule a visit outpatient with / specialists. [facility] [place] Location: [address] [place] [address] Clinics specialize in treating conditions such as: Pre/ consultations Low milk supply and oversupply Slow weight gain of a infant Special feeding concerns of feeding multiples, premature infants, and infants with complex medical issues support for persons with complex medical needs Conditions on the mastitis spectrum Tongue-Tie and Lip-Tie management Inducing Assistance with positioning and latch Flange-fitting and breast pump usage Weaning support Latching difficulties Pumping and/or returning to work documented in this encounter [facility] 07-24-2024 Obstetrics Note This note was copied from a baby's chart. Call as needed to schedule a visit outpatient with / specialists. [facility] [place] Location: [address] [place] [address] Clinics specialize in treating conditions such as: Pre/ consultations Low milk supply and oversupply Slow weight gain of a Special feeding concerns of feeding multiples, premature infants, and infants with complex medical issues support for persons with complex medical needs Conditions on the mastitis spectrum Tongue-Tie and Lip-Tie management Inducing Assistance with positioning and latch Flange-fitting and breast pump usage Weaning support Latching difficulties Pumping and/or returning to work [facility] 07-17-2024 Miscellaneous Notes This note was copied from a baby's chart. Met with mom at infant's bedside. States pumping continues to go well with stable supply and no complaints of pain or breakdown. No immediate questions or concerns, encouraged to call out for any other assistance. documented in this encounter [facility] 07-17-2024 Obstetrics Note This note was copied from a baby's chart. Met with mom at infant's bedside. States pumping continues to go well with stable supply and no complaints of pain or breakdown. No immediate questions or concerns, encouraged to call out for any other assistance. [facility] 07-04-2024 Miscellaneous Notes This note was copied from a baby's chart. Met with mother at 's bedside. States pumping continues to go well. She is now getting about 2 ounces every 2-3 hours. Denies pain with pump. No questions or concerns at this time. Encouraged to reach out for any assistance. documented in this encounter [facility] 07-04-2024 Obstetrics Note This note was copied from a baby's chart. Met with mother at infant's bedside. States pumping continues to go well. She is now getting about 2 ounces every 2-3 hours. Denies pain with pump. No questions or concerns at this time. Encouraged to reach out for any assistance. [facility] 06-30-2024 Miscellaneous Notes This note was copied from a baby's chart. Met with mom at infant's bedside. States she has begun pumping for in NICU, producing about 5mls breast milk with each pump. Reassured mom it can be completely normal to produce drops to even nothing in the first few days , given pumping log and reviewed target goals in the first two weeks after delivery. Pump and supplies brought to room. Discussed importance of pumping 8-12 times in 24 hours, or every 2-3 hours as an would eat, for 15-20 minutes at a suction level that is comfortable for her. [place] basin at bedside and educated on proper pump part washing, sanitation, and storage. Pumping for your Baby handout given. Mom is interested in offering infant a combination of breast and bottle feeds. Discussed skin to skin therapy and encouraged to offer as is able. No further questions or concerns, encouraged to call out for any other assistance. Pumping Guidelines: Pump every 2-3 hours for 15-20 minutes each time Pump 8-12 times in 24 hours Clean parts in warm, soapy water; rinse and air dry after every use Sanitize parts once a day Flange Fit A flange fits correctly when: your nipple is centered in the tube no parts of your nipple rub against the sides little or no areola is pulled in when the pump is turned on On the other hand, a flange is not fitting properly when: you experience nipple pain during or after the pumping session you notice your nipple is becoming discolored, chapped, or otherwise injured In addition to breast and nipple pain, using the wrong sized pump flange can negatively impact the amount of milk you are able to get out of your breast. A flange that fits too tightly will cause the breast to be constricted in ways that can lead to clogged/blogged milk ducts. (When ducts are clogged, they don t release milk and new milk isn t formed as quickly.) On the other hand, a flange that fits too loosely won t provide adequate suction. This can also lead to milk being left in the breast and lower milk production in the future. Pain and infection can develop from this as well. Before each use Wash hands. Wash hands well with soap and water for 20 seconds. Assemble. Assemble clean pump kit. Inspect whether the pump kit or tubing has become moldy or soiled during storage. If your tubing is moldy, discard and replace immediately. Clean if using a shared pump. Clean pump dials, power switch, and countertop with disinfectant wipe. After every use Store milk safely. Cap milk collection bottle or seal milk collection bag, label with date and time, and immediately place in a refrigerator, freezer, or cooler bag with ice packs. Clean pumping area. Especially if using a shared pump, clean the dials, power switch, and countertop with disinfectant wipes. Take apart and inspect pump kit. Take apart breast pump tubing and separate all parts that come in contact with breast/breast milk (for example, flanges, valves, membranes, connectors, and milk collection bottles). Rinse pump kit. Rinse breast pump parts that come into contact with breast/breast milk under running water to remove remaining milk Clean pump kit. As soon as possible after pumping, clean pump parts that come into contact with breast/breast milk in one of the following ways. You can clean your pump parts in a helper chicken farm or by hand in a wash basin used only for cleaning the pump kit and feeding items Hand Wash - Place pump parts in a clean wash basin used only for feeding items. Do not place pump parts directly in the sink! Add soap and hot water to basin. Scrub items using a clean brush used only for feeding items. Rinse by holding items under running water, or by submerging in fresh water in a separate basin. Air-dry thoroughly. Place pump parts, wash basin, and bottle brush on a clean, unused dish towel or paper towel in an area protected from dirt and dust. Do not use a dish towel to rub or pat items dry! Clean wash basin and bottle brush. Rinse them well and allow them to air-dry after each use. Director Database - Clean pump parts in a helper chicken farm, if they are helper chicken farm-safe. Be sure to place small items into a closed-top basket or mesh laundry bag. Add soap and, if possible, run the helper chicken farm using hot water and a heated drying cycle (or sanitizing setting). Remove from helper chicken farm with clean hands. If items are not completely dry, place items on a clean, unused dish towel or paper towel to air-dry thoroughly before storing. Do not use a dish towel to rub or pat items dry! Clean wash basin and bottle brush. If you use a wash basin or bottle brush when cleaning your pump parts, rinse them well and allow them to air-dry after each use. Consider washing them every few days, either in a helper chicken farm with hot water and a heated drying cycle if they are helper chicken farm-safe, or by hand with soap and warm water. For extra protection, sanitize. For extra germ removal, sanitize pump parts at least once daily. Sanitizing is especially important if your baby is less than 2 months old, was born prematurely, or has a weakened immune system due to illness or medical treatment (such as chemotherapy for cancer). Daily sanitizing of pump parts may not be necessary for older, healthy babies, if the parts are cleaned carefully after each use. Sanitize all items (even the bottle brush and wash basin!) by using one of the following options: Clean first. Pump parts, bottle brushes, and wash basins should be sanitized only after they have been cleaned. Sanitize. Sanitize the pump kit, bottle brushes, and wash basins using one of the following options. Check creping machine operator's instructions about whether items may be steamed or boiled. Steam: Use a microwave or plug-in steam system according to the creping machine operator s directions. Boil: Place disassembled items that are safe to boil into a pot and cover with water. Put the pot over heat and bring to a boil. Boil for 5 minutes. Remove items with clean tongs. Allow to air-dry thoroughly. Place sanitized pump parts, wash basin, and bottle brush on a clean, unused dish towel or paper towel in an area protected from dirt and dust. Do not use a dish towel to rub or pat items dry because doing so may transfer germs to the items. Store safely until needed Allow the clean pump parts, bottle brushes, and wash basins to air-dry thoroughly before storing to help prevent germs and mold from growing. Once completely dry, the items should be stored in a clean, protected area to prevent contamination during storage. Put together the clean, dry pump parts. Place reassembled pump kit in a clean, protected area such as inside an unused, sealable food storage bag. Store wash basins and bottle brushes in a clean area. Step 1: Infant stable and able to tolerate Sxcd-jo-Uesl care Interventions Baby No weight or gestational age limitations, following IVH protocol Follow Kftj-aq-Eucw Care Policy Length should be done as tolerated by the . At least once daily, increase as tolerated. Mother Put Lcie-ks-Dykw at least once daily, when possible [facility] Obstetrics Note This note was copied from a baby's chart. Met with mom at 's bedside. States she has begun pumping for infant in NICU, producing about 5mls breast milk with each pump. Reassured mom it can be completely normal to produce drops to even nothing in the first few days , given pumping log and reviewed target goals in the first two weeks after delivery. Pump and supplies brought to room. Discussed importance of pumping 8-12 times in 24 hours, or every 2-3 hours as an would eat, for 15-20 minutes at a suction level that is comfortable for her. [place] basin at bedside and educated on proper pump part washing, sanitation, and storage. Pumping for your Baby handout given. Mom is interested in offering a combination of breast and bottle feeds. Discussed skin to skin therapy and encouraged to offer as infant is able. No further questions or concerns, encouraged to call out for any other assistance. Pumping Guidelines: Pump every 2-3 hours for 15-20 minutes each time Pump 8-12 times in 24 hours Clean parts in warm, soapy water; rinse and air dry after every use Sanitize parts once a day Flange Fit A flange fits correctly when: your nipple is centered in the tube no parts of your nipple rub against the sides little or no areola is pulled in when the pump is turned on On the other hand, a flange is not fitting properly when: you experience nipple pain during or after the pumping session you notice your nipple is becoming discolored, chapped, or otherwise injured In addition to breast and nipple pain, using the wrong sized pump flange can negatively impact the amount of milk you are able to get out of your breast. A flange that fits too tightly will cause the breast to be constricted in ways that can lead to clogged/blogged milk ducts. (When ducts are clogged, they don t release milk and new milk isn t formed as quickly.) On the other hand, a flange that fits too loosely won t provide adequate suction. This can also lead to milk being left in the breast and lower milk production in the future. Pain and infection can develop from this as well. Before each use Wash hands. Wash hands well with soap and water for 20 seconds. Assemble. Assemble clean pump kit. Inspect whether the pump kit or tubing has become moldy or soiled during storage. If your tubing is moldy, discard and replace immediately. Clean if using a shared pump. Clean pump dials, power switch, and countertop with disinfectant wipe. After every use Store milk safely. Cap milk collection bottle or seal milk collection bag, label with date and time, and immediately place in a refrigerator, freezer, or cooler bag with ice packs. Clean pumping area. Especially if using a shared pump, clean the dials, power switch, and countertop with disinfectant wipes. Take apart and inspect pump kit. Take apart breast pump tubing and separate all parts that come in contact with breast/breast milk (for example, flanges, valves, membranes, connectors, and milk collection bottles). Rinse pump kit. Rinse breast pump parts that come into contact with breast/breast milk under running water to remove remaining milk Clean pump kit. As soon as possible after pumping, clean pump parts that come into contact with breast/breast milk in one of the following ways. You can clean your pump parts in a helper chicken farm or by hand in a wash basin used only for cleaning the pump kit and infant feeding items Hand Wash - Place pump parts in a clean wash basin used only for feeding items. Do not place pump parts directly in the sink! Add soap and hot water to basin. Scrub items using a clean brush used only for feeding items. Rinse by holding items under running water, or by submerging in fresh water in a separate basin. Air-dry thoroughly. Place pump parts, wash basin, and bottle brush on a clean, unused dish towel or paper towel in an area protected from dirt and dust. Do not use a dish towel to rub or pat items dry! Clean wash basin and bottle brush. Rinse them well and allow them to air-dry after each use. Director Database - Clean pump parts in a helper chicken farm, if they are helper chicken farm-safe. Be sure to place small items into a closed-top basket or mesh laundry bag. Add soap and, if possible, run the helper chicken farm using hot water and a heated drying cycle (or sanitizing setting). Remove from helper chicken farm with clean hands. If items are not completely dry, place items on a clean, unused dish towel or paper towel to air-dry thoroughly before storing. Do not use a dish towel to rub or pat items dry! Clean wash basin and bottle brush. If you use a wash basin or bottle brush when cleaning your pump parts, rinse them well and allow them to air-dry after each use. Consider washing them every few days, either in a helper chicken farm with hot water and a heated drying cycle if they are helper chicken farm-safe, or by hand with soap and warm water. For extra protection, sanitize. For extra germ removal, sanitize pump parts at least once daily. Sanitizing is especially important if your baby is less than 2 months old, was born prematurely, or has a weakened immune system due to illness or medical treatment (such as chemotherapy for cancer). Daily sanitizing of pump parts may not be necessary for older, healthy babies, if the parts are cleaned carefully after each use. Sanitize all items (even the bottle brush and wash basin!) by using one of the following options: Clean first. Pump parts, bottle brushes, and wash basins should be sanitized only after they have been cleaned. Sanitize. Sanitize the pump kit, bottle brushes, and wash basins using one of the following options. Check creping machine operator's instructions about whether items may be steamed or boiled. Steam: Use a microwave or plug-in steam system according to the creping machine operator s directions. Boil: Place disassembled items that are safe to boil into a pot and cover with water. Put the pot over heat and bring to a boil. Boil for 5 minutes. Remove items with clean tongs. Allow to air-dry thoroughly. Place sanitized pump parts, wash basin, and bottle brush on a clean, unused dish towel or paper towel in an area protected from dirt and dust. Do not use a dish towel to rub or pat items dry because doing so may transfer germs to the items. Store safely until needed Allow the clean pump parts, bottle brushes, and wash basins to air-dry thoroughly before storing to help prevent germs and mold from growing. Once completely dry, the items should be stored in a clean, protected area to prevent contamination during storage. Put together the clean, dry pump parts. Place reassembled pump kit in a clean, protected area such as inside an unused, sealable food storage bag. Store wash basins and bottle brushes in a clean area. Step 1: Infant stable and able to tolerate Funq-jm-Phcc care Interventions Baby No weight or gestational age limitations, following IVH protocol Follow Hnjk-eq-Eijd Care Policy Length should be done as tolerated by the infant. At least once daily, increase as tolerated. Mother Put Mmoo-aj-Xryd at least once daily, when possible [facility] 06-15-2024 History of Presen t illness Narrative Reason for Appointment: Patient ID: [...] nursing note reviewed. Exam conducted with a director of global sales present. Vitals: Estimated body mass index is [...] Riya Alexander NP documented in this encounter [facility] 06-01-2024 History of Presen t illness Narrative Reason for Appointment: Patient ID: Rosette Alba is a 24 y.o. female who presents for Routine Visit Patient presents today for Return OB appointment. MEDICATIONS Current Outpatient Medications Medication Instructions amoxicillin (AMOXIL) 875 mg, Oral, 2 times daily, Pt to inform OB of starting medication. Blood Glucose Monitoring Suppl (D-Care Glucometer) w/Device [...] nursing note reviewed. Exam conducted with a director of global sales present. Vitals: Estimated body mass index is [...] of Delivery: 08/23/24. Patient is setup with [facility] for Diabetic Education. Patient complaints of [...] Camacho Hernandez DO documented in this encounter [facility] 05-29-2024 History of Presen t illness Narrative Images from the original note were not included. [address] , [address] [facility], [address] P: [phone] F: [phone] HPI Historian of HPI: patient Rosette Alba [...] of See 1 documented in this encounter [facility] 05-04-2024 History of Presen t illness Narrative Reason for Appointment: Patient ID: [...] nursing note reviewed. Exam conducted with a director of global sales present. Vitals: Estimated body mass index is [...] Camacho Hernandez DO documented in this encounter [facility] 04-13-2024 History of Presen t illness Narrative Headache/epigastric pain/blurry vision/swelling? No Cramping/contractions? [...] Yes Have you been seen here at [facility] in a previous ? No Recent ER visits or hospitalizations? No Bring blood sugar log or meter with you today? (Please bring them with you for every visit at [facility]) N/A Flu vaccine (Dec-April)? Yes Any concerns that you would like me to mention to the provider today? No REASON FOR CONSULTATION: Previa ruled out. HISTORY OF PRESENT ILLNESS: Rosette Alba is a pleasant 24 y.o. G [id number]. at 20w4d due on Estimated Date of [...] and the other consultants, we search on [employer] and all the available care everywhere epic I did review all the imaging studies of the patient available on EMR, ordered by the primary care physician and the other senior treasury consultant HABITS: Patient activity no restrictions, diet [...] 22 weeks and 23 weeks gestation at [facility] office. 2. InCase of short cervical length less than 25 mm patient will be a candidate for cerclage which will be performed through the [facility] office. 3. Placenta previa has resolved. 4. Routine care OB provider. 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 Patient does have ultrasound scheduled with us Thank you for allowing me to participate in Rosette Alba . If there any questions please do not hesitate to contact us. Sincerely, NI CARROLL MD documented in this encounter [facility] 04-06-2024 History of Presen t illness Narrative Reason for Appointment: Patient ID: [...] nursing note reviewed. Exam conducted with a director of global sales present. Vitals: Estimated body mass index is [...] of: YNES Xiong documented in this encounter [facility] 03-09-2024 History of Presen t illness Narrative Reason for Appointment: Patient ID: [...] nursing note reviewed. Exam conducted with a director of global sales present. Vitals: Estimated body mass index is [...] or undercooked meat, and [facility]. Patient has been consulted regarding any further do's and don'ts of . Patient voiced understanding and all questions and concerns were answered. Discussed vaginal progesterone with patient and that medication will be stopped at 36 weeks gestation, and Celestone will be given at 32 weeks. Patient given early 1 hour gtt and MSAFP. Vaginal suppositories sent to [employer]. PVU Orders Placed This Encounter Procedures US OB transvaginal Alpha fetoprotein, maternal Glucose tolerance, 1 hour POCT urinalysis dipstick manually resulted Follow Up: Patient is to return in 4 weeks for routine OB appointment. Documented by Ce Curry LPN on behalf of: Camacho Hernandez DO documented in this encounter [facility] 02-03-2024 History of Presen t illness Narrative Reason for Appointment: Patient ID: [...] or undercooked meat, and stay away [facility]. Patient has also been advised to not [...] Danay Velasquez MA documented in this encounter [facility] 02-13-2023 Procedure note [facility] 10-18-2021 History and physical note Note Date/Time October 18, 2021 1:40am [facility] [address] [place] [address] EPIC CUPID ANALYST History & Physical Signed Patient: Rsoette Alba MR#: [id number] : 2000 Acct:[id number] Age/Sex: 21 / F Adm Date: 2 Loc: Room: [address] [place] [address] Type: ADM IN Attending Dr: Jennie Smith MD Copies to: Jennie Smith MD-[facility] Obdulia Oneil DO~ Date of Service: 10/18/2021 Review of Systems Review of Systems All other systems reviewed & are negative unless noted below or in HPI OB [facility] Medical History (Updated 10/18/21 @ 01:30 by Jennie Smith MD) Anxiety Depression Thyroid disease No meds at present time. UTI (urinary tract infection) Surgical History (Updated 01/08/21 @ 21:48 by Marie Wynn RN) History of placement of ear tubes EPIC CUPID ANALYST Hx : 5 : 4 Livin EDC [...] % (Auto) 73.3, Lymph % (Auto) 17.0, Calloway % (Auto) 8.1, Eos % (Auto) 1.3, Baso % (Auto) 0.3, Neut # (Auto) 7.4, Lymph # (Auto) 1.7, Calloway # (Auto) 0.8, Eos # (Auto) 0.1, Baso # (Auto) 0.0, Nucleated RBC % (auto) 0.1 10/18/21 00:27: Urine Color Yellow, Urine Appearance Cloudy A, Urine pH 6.5, Ur Specific [place] 1.020, Urine Protein Trace H, Urine Glucose [...] by TELMA Smith> 10/18/21 0141 [facility] Work Phone: 1(536) 459-518309-03-2022 [facility] Diagnosis Onset Date Resolution Status 33 weeks gestation of [facility] Work Phone: evaluation noteNo assessment information available [facility] Work Phone: Evaluation note* Diagnosis Onset Date Resolution Status 35 weeks gestation of [facility] Work Phone: Evaluation note* Diagnosis Onset Date Resolution Status Iron deficiency anemia [facility] Work Phone: evaluation note* Diagnosis Missed menses , unspecified gestational age Encounter for supervision of normal first in first trimester documented in this encounter [facility] Healthcare[facility]* Diagnosis Second trimester state, incidental 16 weeks gestation of History of delivery, currently with history of pre-term labor Diabetes mellitus screening Screening for diabetes mellitus History of gestational diabetes Personal history of other genital system and obstetric disorders documented in this encounter [facility] HealthcareEvaluation note* Diagnosis Second trimester - Primary state, incidental 20 weeks gestation of STD exposure Well woman exam with routine gynecological exam Routine gynecological examination Vaginal discharge Leukorrhea, not specified as infective History of delivery, currently with history of pre-term labor URI, acute Acute upper respiratory infections of unspecified site documented in this encounter [facility] HealthcareEvaluation note* Diagnosis History of delivery, currently - Primary with history of pre-term labor [facility] Diagnosis delivery after section- Primary [facility] Diagnosis Short cervix, antepartum- Primary 24 weeks gestation of Second trimester state, incidental Diabetes mellitus screening Screening for diabetes mellitus Nonintractable headache, unspecified chronicity pattern, unspecified headache type documented in this encounter [facility] HealthcareEvaluation note* Diagnosis Strep throat- Primary Streptococcal sore throat Pharyngitis, unspecified etiology 27 weeks gestation of documented in this encounter [facility] HealthcareEvaluation note* Diagnosis Third trimester state, incidental 28 weeks gestation of Upper respiratory tract infection, unspecified type Chronic cluster headache, not intractable History of delivery, currently with history of pre-term labor Diet controlled gestational diabetes mellitus (GDM) in third trimester Polyhydramnios affecting in third trimester documented in this encounter [facility] HealthcareEvaluation note* Diagnosis Elevated glucose tolerance test- Primary Impaired glucose tolerance test 30 weeks gestation of Third trimester state, incidental documented in this encounter [facility] HealthcareEvaluation note* Diagnosis 6 weeks follow-up ([facility]) documented in this encounter [facility] HealthcareEvaluation note* Diagnosis Pre-op examination Request for sterilization documented in this encounter [facility] Healthcare[facility]ospital Discharge instructions Additional Instructions You have a respiratory panel is pending you will be called with any positive results Push fluids Humidifier may be beneficial Tylenol only for your discomfort Follow-up with your PCP and your EPIC CUPID ANALYST call tomorrow for appointment Salt water gargles to soothe your throat Handwashing Rest Return here if any problems persist or worsen including abdominal pain, vaginal bleeding, increased pain, dyspnea or any other concerns[facility] Work Phone: InstructionsNot on filedocumented in this encounter [facility] filedocumented in this encounter [facility]ructionsNot on filedocumented in this encounter [facility] SystemInstructionsNot on filedocumented in this encounter [facility] SystemReason for referral (narrative)No reason for referral information availablePromedica [facility] Work Phone: Summary Purpose Family History Relationship Condition Age [...] Date/ Time Advance Directives No December 1:29pm Date Activated Date Inactivated Comments 06/28/2024 12:39 PM 06/30/2024 1:45 PM Chief Complaint and Reason for Visit Chief [...] section and content) DATE CREATED AUTHOR 10/16/2018 [facility] DATE CREATED AUTHOR AUTHOR'S ORGANIZ ATION 07/24/2022 [facility] DATE CREATED AUTHOR AUTHOR'S ORGANIZ ATION 05/03/2024 [facility] DATE CREATED AUTHOR AUTHOR'S ORGANIZ ATION 07/16/2024 [facility] DATE CREATED AUTHOR AUTHOR'S ORGANIZ ATION 08/10/2024 [facility] EPIC DATE CREATED AUTHOR AUTHOR'S ORGANIZ ATION 09/06/2024 [facility] Care Teams (unrecognized sec tion [...] Role Status Dates Nataly E Spasic , BASKET PATCHER-C Attending Provider Active Team Status: Active Member Role Status Dates Nataly E Spasic , BASKET PATCHER-C Primary Care Provider Active Team Status: Inactive Member Role Status Dates Nataly E Spasic , BASKET PATCHER-C Primary Care Provider, Attending Provider Active Team Status: Inactive Member Role Status Dates Nataly E Spasic , BASKET PATCHER-C Primary Care Provider Active Marcello Hudson DO Attending Provider Active Team Status: Inactive Member Role Status Dates Nataly E Spasic , BASKET PATCHER-C Primary Care Provider Active Mary Kay Cantu DO Attending Provider Active Team Status: Inactive Member Role Status Dates Nataly E Spasic , BASKET PATCHER-C Primary Care Provider Active Jennie Smith MD Attending Provider Active Team Status: Inactive Member Role Status Dates Nataly E Spasic , BASKET PATCHER-C Primary Care Provider Active Staci Ortiz , CADE Emergency Provider Active Team Status: Inactive Member Role Status Dates Nataly E Shayleesic , BASKET PATCHER-C Attending Provider Active Services [facility] [...] Role Status Dates Nataly Brian Jerniganc , BASKET PATCHER-C Primary Care Provider Active Radha Molina DO Attending Provider Active Team Status: Inactive Member Role Status Dates Nataly Brian Toure , BASKET PATCHER-C Primary Care Provider Active Ede Way MD [...] Status: Inactive Member Role Status Dates Radha Mloina DO Attending Provider Active S tart: January 05, 2023 End: January 05, 2023 Team Status: Inactive Member Role Status Dates Nataly E Shayleesic , BASKET PATCHER-C Primary Care Provider Active Start: January 21, 2023 End: January 21, 2023 Radha Molina DO Attending Provider Active S tart: January 21, 2023 End: January 21, 2023 Team Status: Inactive Member Role Status Dates Nataly Toure , BASKET PATCHER-C Primary Care Provider Active Start: January 22, 2023 End: January 22, 2023 Radha Molina DO Attending Provider Active S tart: January 22, 2023 End: January 22, 2023 Team Status: Inactive Member Role Status Dates Nataly Toure , BASKET PATCHER-C Primary Care Provider Active Start: January 30, 2023 End: January 31, 2023 Mary Kay Cantu DO Attending Provider Active Start: January 30, 2023 End: January 31, 2023 Team Status: Inactive Member Role Status Dates Nataly Toure , BASKET PATCHER-C Primary Care Provider Active Start: February 01, 2023 End: February 01, 2023 Radha Molina DO Attending Provider Active S tart: February 01, 2023 End: February 01, 2023 Team Status: Inactive Member Role Status Dates Nataly Toure , BASKET PATCHER-C Primary Care Provider Active Start: February 13, 2023 End: February 13, [address] MD Admit Provider, Atte nding Provider Active Start: February 13, 2023 End: February 13, 2023 Team Status: Inactive Member Role Status Dates Nataly Toure , BASKET PATCHER-C Attending Provider Active Start: March 04, 2023 End: March 04, 2023 Team Status: Active Member Role Status Dates Services [facility] Primary Care Provider Ac tive Team Status: Inactive Member Role Status Dates Nataly Toure , BASKET PATCHER-C Attending Provider Active Start: March 17, 2023 End: March 17, 2023 Services [facility] Primary Care Provider Ac tive Start: March 17, 2023 End: March 17, 2023 Team Status: Inactive Member Role Status Dates Nataly Toure , BASKET PATCHER-C Attending Provider Active Start: August 03, 2023 End: August 03, 2023 Team Status: Inactive Member Role Status Dates Nataly Toure , BASKET PATCHER-C Primary Care Provider Active Start: August 20, 2023 End: August 21, 2023 Carmelo Vinson DO Emergency Provider Active St art: August 20, 2023 End: August 21, 2023 Team Status: Inactive Member Role Status Dates Nataly Toure , BASKET PATCHER-C Primary Care Provider Active Start: September 26, 2023 End: September 27, 2023 YNES Hensley-Anirudh Emergency Provider Active Start: September 26, 2023 End: September 27, 2023 Team Status: Inactive Member Role Status Dates Nataly Toure , BASKET PATCHER-C Primary Care Provi emmanuel, Attending Provider Active Start: September 30, 2023 End: September 30, 2023 Team Status: Inactive Member Role Status Dates Nataly Brian Toure , BASKET PATCHER-C Primary Care Provider Active Start: October 04, 2023 End: October 05, 2023 Carmelo Vinson DO Emergency Provider Active St art: October 04, 2023 End: October 05, 2023 Team Status: Inactive Member Role Status Dates Nataly Toure , BASKET PATCHER-C Primary Care Provi emmanuel, Attending Provider Active Start: October 07, 2023 End: October 07, 2023 Team Status: Inactive Member Role Status Dates Nataly Toure , BASKET PATCHER-C Primary Care Provi emmanuel, Referring Provider Active Start: October 20, 2023 End: October 20, 2023 Melania Arceo APRN Attending Provider Active Start: October End: October 20, 2023 Team Status: Active Member Role Status Dates Nataly Toure , BASKET PATCHER-C Primary Care Provi emmanuel, Referring Provider Active Start: October 20, 2023 Melania Arceo APRN Attending Provider Active Start: October Central Supply Manager Relationship Specialty Start Date End Date Unallocated, Jaguar Chapa MD [facility] [address] [facility] [place] [address] PCP - General 06/29/22 Central Supply Manager Relationship Specialty Start Date End Date Unallocated, MD Jose Angel Costa [facility] [place] [address] PCP - General 06/29/22 Central Supply Manager Relationship Specialty Start Date End Date Unallocated, MD Jose Angel Costa [facility] [place] [place] [address] PCP - General 06/29/22 Central Supply Manager Relationship Specialty Start Date End Date Unallocated, Jaguar Chapa MD [address] [place] [id number] PCP - General 06/29/22 Central Supply Manager Relationship Specialty Start Date End Date Tai Chapman MD [address] [place] [id number] PCP - General Family Medicine 02/24/18 Central Supply Manager Relationship Specialty Start Date End Date Unallocated, Jaguar Chapa MD [address] [place] [id number] PCP - General 06/29/22 Central Supply Manager Relationship Specialty Start Date End Date Unallocated, Jaguar Chapa MD [address] [place] [id number] PCP - General 06/29/22 Central Supply Manager Relationship Specialty Start Date End Date Unallocated, Jaguar Chapa MD [address] [place] [id number] PCP - General 06/29/22 Central Supply Manager Relationship Specialty Start Date End Date Tai Chapman MD [address] [place] [id number] PCP - General Family Medicine 02/24/18 Central Supply Manager Relationship Specialty Start Date End Date Tai Chapman MD [address] [place] [id number] PCP - General Family Medicine 02/24/18 Central Supply Manager Relationship Specialty Start Date End Date Unallocated, Jaguar Chapa MD [address] [place] [id number] PCP - General 06/29/22 Central Supply Manager Relationship Specialty Start Date End Date Unallocated, Jaguar Chapa MD [address] [facility] [place] [address] PCP - General 06/29/22 Central Supply Manager Relationship Specialty Start Date End Date Unallocated, Jaguar Chapa MD [address] [facility] [place] [address] PCP - General 06/29/22 Central Supply Manager Relationship Specialty Start Date End Date Unallocated, Jaguar Chapa MD [address] [place] [address] PCP - General 06/29/22 Central Supply Manager Relationship Specialty Start Date End Date Tai Chapman MD [address] [place] [id number] PCP - General Family Medicine 02/24/18 Central Supply Manager Relationship Specialty Start Date End Date Unallocated, Jaguar Chapa MD [address] [place] [address] PCP - General 06/29/22 Team Status: Inactive Member Role Status Dates Nataly Toure , BASKET PATCHER-C Attending Provider Active Start: August 17, 2024 End: August 17, 2024 Central Supply Manager Relationship Specialty Start Date End Date Unallocated, Jaguar Chapa MD [address] [place] [address] [place] [address] PCP - General 06/29/22 Goals (unrecognized section [...] this encounterNot on filedocumented as of this encounterGoals may be documented in an alternate section Reason for Visit (unrecogniz ed section and content) Reason Comments Routine Visit Reason Comments Placenta Previa Reason Comments Care Reason Comments Pre-op Visit FOR RECORDS PERTAINING TO PATIENTS WHO [...] BE BASED ON THE PRIMARY CLINICAL RECORDS. [facility] [employer] [facility]. provides no warranty or guarantee of the accuracy or completeness of information in this document.
== END 2024-09-29 12:50 | disposition home or self-care (01) ==
LOC: PST 12:52
PROVIDERS: Visit Provider Obstetrics & Gynecology
DX: Z01.818 Encounter for other preprocedural examination (principal)

== ENCOUNTER 2024-10-13 08:38 | Day surgery (SDC) | payer OTHER, SELFPAY ==
--- OUTSIDE RECORDS SUMMARY | 2023-04-21 11:30 | XMS_ITS | Continuity of Care Document ---
Author Organization [facility] Address [address] [place] [address] Phone Care Team Providers Care Cart Driver Name Role Phone Sherman Cross Unavailable Unavailable Allergies, Adverse Reactions, Alerts Substance Reaction Status Criticality No Known Allergies Active No Inform ation Medications Medication Instructions Dosage Effective Dates (start - stop) Status Comments Vitamin 27 mg-0.8 mg tablet take 1 tablet by oral route every day - Active Procedures Procedure Date TB Read TB INTRADERMAL TEST TB Read Covid-19 Vaccine Administration 024 Covid-19 Vaccine, 50 Mcg Moderna 12y Plu s IMMUNIZATION ADMIN, EACH ADD FLU VAC NO PRSV 4 LANDON 3 YRS+ IMMUNIZATION ADMIN CHICKEN POX VACCINE, SC TB INTRADERMAL TEST OFFICE/OUTPATIENT VISIT, EST URINE TEST Advance Directives Directive Yes / No Effective Date File Name No Information Encounters Encounter Description Practice Location Reason(s) For Visit Diagnoses Date Provider Providers Copied on Encounter [facility], [address], [place], [id number] , tel:[phone] [facility] No Information James Lema. [address], [place], [id number] , [place]. tel: [phone] [facility], [address], [place], [id number] , [place] tel: [phone] [facility] Nonspecific reaction to tuberculin skin test without active tuberculosis [facility] [address], [place], [id number] , [place]. tel: [phone] [facility], [address] [place] [address], [id number] , [place] tel: [phone] [facility] Encounter for screening for respiratory tuberculosis 4 [facility] [address], [place], [id number] , [place]. tel: [phone] [facility], [address] [place] [address], [id number] , [place] tel: [phone] [facility] Encounter for screening for respiratory tuberculosis 4 [facility]. [address] [place] [address], [id number] , [place]. tel: [phone] OFFICE/OUTPA TIENT VISIT, EST [facility], [address] [place] [address], [id number] , [place] tel: [phone] [facility] confirmation (chief complaint) Less than 8 weeks gestation of pregnancyEncounter for supervision of other normal , 1st trimester 6 [facility] Ce. [address] [place] [address], [id number] , [place]. tel: [phone] Family History Family Member Type Diagnosis Age At Onset No Information Immunizations Vaccine Date Status Comments Spikevax 12y+ administered Source: New Im munization Record Flulaval/ Fluarix administered Source: Ne w Immunization Record Varicella administered Source: New Imm unization Record Tdap administered Source: Other R egistry influenza, injectable, quadrivalent, preservative free administered Source: Other Regist ry Tdap administered Source: Other R egistry Novel yealnmcmr-[id number], preservative-free administered Source: Other Regist ry MMR administered Source: Other R egistry Hep B, adolescent or pediatric administer ed Source: Other Registry DTaP, unspecified formulation administere d Source: Other Registry IPV administered Source: Other R egistry DTaP, unspecified formulation administere d Source: Other Registry Payers Payer name Insurance type Covered libertarian ID Authoriza tion(s) [employer] Medicaid [facility] [id number] Medicaid Wrap - [facility] [id number] Social History Type Description Quantity Date Captured Comments Alcohol Use Details Unknown Caffeine Use Details Unknown Tobacco Use Status No Information Smoking Status No Information Sex Female Sexual Orientation Don't Know Gender Identity Female Chief Complaint And Reason For Visit No Information Reason For Referral Reason For Referral No Information Plan Of Treatment Date Type Action Status Goal PRAPARE ASSESSMENT. Due on due Goal Tdap due Goal RLP. Due on due Goal Hep A. Due on du e Goal Hepatitis C screening. Due o n due Goal Influenza vaccine. Due on due Goal Unhealthy drug use screening . Due on due Goal Depression screening. Due on due Goal PAP. Due on due Goal Tdap Vaccine. Due on 2032 due Goal Hepatitis C screening. Due o n due Goal PRAPARE ASSESSMENT. Due on due Goal Tdap due Goal RLP. Due on due Goal Tdap Vaccine. Due on 2032 due Goal Unhealthy drug use screening . Due on due Goal Influenza vaccine. Due on due Goal PAP. Due on due Goal Depression screening. Due on due Goal Hep A. Due on du e Goal Hep A. Due on du e Goal PRAPARE ASSESSMENT. Due on due Goal Hepatitis C screening. Due o n due Goal Tdap due Goal Tdap Vaccine. Due on 2032 due Goal RLP. Due on due Goal PAP. Due on due Goal Depression screening. Due on due Goal Unhealthy drug use screening . Due on due Goal Influenza vaccine. Due on due Goal RLP. Due on due Goal Tdap due Goal Influenza vaccine. Due on due Goal PRAPARE ASSESSMENT. Due on due Goal Tdap Vaccine. Due on 2032 due Goal Unhealthy drug use screening . Due on due Goal PAP. Due on due Goal Depression screening. Due on due Goal Hepatitis C screening. Due o n due Goal Hep A. Due on du e History Of Present Illness Encounter Date Complaint History Of Prese nt Illness confirmation Functional Status Date Functional Assessmen t No Information Instructions Date Instruction Additional Infor mation No Information Assessments Type Assessment Date No Information Patient Care Teams Name Effective Dates (start - stop) Status Members No Information
--- OUTSIDE RECORDS SUMMARY | 2023-11-25 11:15 | XMS_ITS ---
Author Organization [facility] Address [address] [place] [address] Care Team Providers Care Digital Media Producer Name Role Phone Nataly Toure Primary Care Provider REASON FOR VISIT 1 month f/u Social History Sex Assigned At : Social History Observation Description Sex Assigned At Female Encounters Encounter Location Date Provider Diagnosis [address] [place] [address] 11/25/2023 Nataly Toure Plan Of Treatment No Information Progress Notes * ROSETTE ALBADOB:2000 (24 yo F)Acc No.[id number]:11/25/2023 Progress Notes Patient: ORSETTE SHORE Appointment Provider: Lavinia Toure NP :2000 A ge:23 Y S ex:Female Date:11/25/2023 Address:[address] [place], [place] [id number] Subjective: * Chief Complaints: * 1 . 1 month f/u. * Medical History: Objective: * Vitals: Assessment: Plan: * Treatment: * Images: * Electronic signature of Andrez Toure CNP on 10/13/2024 at 08:43 AM EDT Sign off status: Pending * Appointment Provider: Lavinia Toure NP Date: 1 Generated for Printi ng/Faxing/eTransmitting on: 0 10/13/2024 08:43 AM EDT
--- OUTSIDE RECORDS SUMMARY | 2023-11-30 07:30 | XMS_ITS ---
Author Organization [facility] Address [address] [address] Care Team Providers Care Manager Copy Name Role Phone Nataly Toure Primary Care Provider [phone] REASON FOR VISIT 1 month f/u Social History Sex Assigned At : Social History Observation Description Sex Assigned At Female Encounters Encounter Location Date Provider Diagnosis [address] [place] [address] 11/30/2023 Nataly Toure Plan Of Treatment No Information Progress Notes * ROSETTE ALBADOB:2000 (24 yo F)Acc No.[id number]:11/30/2023 Patient: ROSETTE SHORE Appointment Provider: Lavinia Toure NP :2000 A ge:23 Y S ex:Female Date:11/30/2023 Address:[address] [place], [place] [id number] Subjective: * Chief Complaints: * 1 . [...]
--- OUTSIDE RECORDS SUMMARY | 2024-09-19 07:45 | XMS_ITS ---
Author Organization [facility] Servic es Address [address] [place] [address] Care Team Providers Care Project Portfolio Analyst Name Role Phone Nataly Toure Primary Care Provider REASON FOR VISIT 1month f/u Social History Sex Assigned At : Social History Observation Description Sex Assigned At Female Encounters Encounter Location Date Provider Diagnosis [address] [place] [address] 09/19/2024 Nataly Toure Plan Of Treatment No Information Progress Notes * ROSETTE ALBADOB:2000 (24 yo F)Acc No.[id number]:09/19/2024 Progress Notes Patient: ROSETTE SHORE Appointment Provider: Lavinia Toure NP :2000 A ge:24 Y S ex:Female Date:09/19/2024 Address:[address] [place], [place] [id number] Subjective: * Chief Complaints: * 1 . 1month f/u. * Medical History: Objective: * Vitals: Assessment: Plan: * Treatment: * Images: * Electronic signature of Andrez Toure CNP on 10/13/2024 at 08:43 AM EDT Sign off status: Pending * Appointment Provider: Lavinia Toure NP Date: 09/19/2024 Generated for Marciei rita/Barbara/eTransmitting on: 10/13/2024 08:43 AM EDT
--- OUTSIDE RECORDS SUMMARY | 2024-09-26 07:30 | XMS_ITS ---
Author Organization [facility] Servic es Address [address] [place] [address] Care Team Providers Care Tester Equipment Name Role Phone Nataly Toure Primary Care Provider [phone] REASON FOR VISIT 1month f/u Social History Sex Assigned At : Social History Observation Description Sex Assigned At Female Encounters Encounter Location Date Provider Diagnosis [address] [place] [address] 09/26/2024 Nataly Toure Plan Of Treatment No Information Progress Notes * ROSETTE ALBADOB:2000 (24 yo F)Acc No.[id number]:09/26/2024 Progress Notes Patient: ROSETTE SHORE Appointment Provider: Lavinia Toure NP :2000 A ge:24 Y S ex:Female Date:09/26/2024 Address:[address] [place], [place] [id number] Subjective: * Chief Complaints: * 1 . 1month f/u. * Medical History: Objective: * Vitals: Assessment: Plan: * Treatment: * Images: * Electronic signature of Andrez Toure CNP on 10/13/2024 at 08:44 AM EDT Sign off status: Pending * Appointment Provider: Lavinia Toure NP Date: 09/26/2024 Generated for Marciei rita/Barbara/eTransmitting on: 10/13/2024 08:44 AM EDT
[2024-09-29 13:24] VITALS: BP 114/76; PULSE 97; TEMP 36.2; O2SAT 97; BMI 41.6
[2024-10-13] VITALS (20 sets, daily range): BP systolic 96–145; BP diastolic 51–87; PULSE 80–111; TEMP 36.1–36.7; O2SAT 89–98; BMI 41.3
--- OUTSIDE RECORDS SUMMARY | 2024-10-13 08:42 | XMS_ITS | Encounter Summary ---
Author Organization [facility] Address [address] [place] [address] Care Team Providers Care Electro Winning Operator Name Role Phone Unallocated, Noms Provider Primary Care Provi emmanuel Encounter Details Date Type Department Care Team (Late st Contact Info) Description 05/11/2024 Abstract [facility] [address] [place] [phone] Camacho Hernandez DO [address] [place], [facility] Social History Tobacco Use Types Packs/Day Years Used Date Smoking Tobacco: Never Smokeless Tobacco: Never Alcohol Use Standard Drinks/Week Comments Not Currently 0 (1 standard drink = 0.6 oz pure alcohol) none with , Caffeine intake: none Education Answer Date Recorded What is the highest level of school you have completed or the highest degree you have received? Associate degree: academic program 08/24/2022 Comments Yes Sex and Gender Information Value Date Recorded Sex Assigned at Not on file Legal Sex Female 7:10 PM EDT Gender Identity Female 04/29/2022 7:10 PM EDT Sexual Orientation Not on file documented as of this encounter Plan of Treatment Upcoming Encounters Date Type Department Care Team (Late st Contact Info) Description 10/26/2024 10:50 AM EDT Office Visit [facility] [address] [place] [address] Camacho Hernandez, [address] [place] [address] documented as of this encounter Goals Goal Patient Goal Type Associated Problems Recent Progress Patient-Stated? Author Reminders Care Plan OB Reminders No Open Scheduling, Background documented as of this encounter Visit Diagnoses Not on filedocumented in this encounter Additional Health Concerns Active Problems Noted Date Diagnosed Date OB Reminders 09/02/2022 documented as of this encounter Care Teams Electro Winning Operator Relationship Specialty Start Date End Date Unallocated, Noms Provider[place] [address] PCP - General 06/29/22 documented as of this encounter
--- OUTSIDE RECORDS SUMMARY | 2024-10-13 08:43 | XMS_ITS | Encounter Summary ---
Author Organization [facility] Address [address] [place] [address] Care Team Providers Care Recruitment Specialist Name Role Phone Unallocated, Noms Provider Primary Care Provi emmanuel Encounter Details Date Type Department Care Team (Late st Contact Info) Description 06/29/2024 Abstract [facility] [address] [place] [phone] Camacho Hernandez DO [address] [place], [facility] Social History Tobacco Use Types Packs/Day Years [...] Office Visit [facility] [address] [place] [address] Camacho Hernandez, [address] [place] [address] documented as of this encounter Goals Goal Patient Goal Type Associated Problems Recent Progress Patient-Stated? Author Reminders Care Plan OB Reminders No Open Scheduling, Background documented as of this encounter Visit Diagnoses Not on filedocumented in this encounter Additional Health Concerns Active Problems Noted Date Diagnosed Date OB Reminders 09/02/2022 documented as of this encounter Care Teams Recruitment Specialist Relationship Specialty Start Date End Date Unallocated, Noms Provider, [place] [address] PCP - General 06/29/22 documented as of this encounter
--- OUTSIDE RECORDS SUMMARY | 2024-10-13 08:43 | XMS_ITS | Encounter Summary ---
Author Organization [facility] Address [address] [place] [address] Care Team Providers Care Civil Preparedness Officer Name Role Phone Unallocated, Noms Provider Primary Care Provi emmanuel Encounter Details Date Type Department Care Team (Late st Contact Info) Description 06/30/2024 Abstract [facility] [address] [place] [address] Jewels Bill MA Social History Tobacco Use Types Packs/Day Years [...] Encounters Date Type Department Care Team (Late Contact Info) Description 10/26/2024 10:50 AM EDT Office Visit [facility] [address] [place] [address] Camacho Hernandez DO [address] [place] [address] documented as of this encounter Goals Goal Patient Goal Type Associated Problems Recent Progress Patient-Stated? Author Reminders Care Plan OB Reminders No Open Scheduling, Background documented as of this encounter Visit Diagnoses Not on filedocumented in this encounter Additional Health Concerns Active Problems Noted Date Diagnosed Date OB Reminders 09/02/2022 documented as of this encounter Care Teams Civil Preparedness Officer Relationship Specialty Start Date End Date Unallocated, Noms Provider, [address] [place] [address] PCP - General 06/29/22 documented as of this encounter
--- OUTSIDE RECORDS SUMMARY | 2024-10-13 08:43 | XMS_ITS ---
Author Organization [facility] Source Produ ction (ClinicalSummary Clone) Address Unknown Care Team Providers Care Stencil Sprayer Name Role Phone Unavailable Primary Care Physician Unavailab le Results * [UNITY] ANEUPLOIDY NIPT Performed by: [employer] Value Range Date Fraction 7.3% 03/04/2024 06 :31 am [facility] Sex Chromosome Aneuploidy NOT DETECTED 06:31 am [facility] Monosomy X LOW RISK <1 in 10,000 2024 06:31 am [facility] Trisomy 13 LOW RISK <1 in 10,000 2024 06:31 am [facility] Trisomy 18 LOW RISK <1 in 10,000 2024 06:31 am [facility] Trisomy 21 LOW RISK <1 in 10,000 2024 06:31 am [facility] Sex MALE 03/04/2024 06:3 1 am [facility] Gestation MONSALVE 03/04/19 25 06:31 am [facility] For detailed report, see PDF See PDF 03/04/2024 06:31 am [facility] 03/04/2024 06:3 1 am [facility] Social History Observation Value Start Date End Date
--- OUTSIDE RECORDS SUMMARY | 2024-10-13 08:43 | XMS_ITS | Encounter Summary ---
Author Organization [facility] Address [address] [place] [address] Care Team Providers Care Lay Ups Assembler Name Role Phone Unallocated, Noms Provider Primary Care Provi emmanuel Encounter Details Date Type Department Care Team (Late st Contact Info) Description 05/29/2024 Abstract JAGUAR SANON [address] [place] [phone] Camacho Hernandez DO [address] [place], [facility] Social History Tobacco Use Types Packs/Day Years [...] Office Visit JAGUAR SANON [address] [place] [address] Camacho Hernandez, [address] [place] [address] documented as of this encounter Goals Goal Patient Goal Type Associated Problems Recent Progress Patient-Stated? Author Reminders Care Plan OB Reminders No Open Scheduling, Background documented as of this encounter Visit Diagnoses Not on filedocumented in this encounter Additional Health Concerns Active Problems Noted Date Diagnosed Date OB Reminders 09/02/2022 documented as of this encounter Care Teams Lay Ups Assembler Relationship Specialty Start Date End Date Unallocated, Noms Provider, [place] [address] PCP - General 06/29/22 documented as of this encounter
--- OUTSIDE RECORDS SUMMARY | 2024-10-13 08:43 | XMS_ITS | Encounter Summary ---
Author Organization [facility] Address [address] [place] [address] Care Team Providers Care Yarn Sorter Name Role Phone Unallocated, Noms Provider Primary Care Provi emmanuel Encounter Details Date Type Department Care Team (Late st Contact Info) Description 10/20/2022 Abstract NOMDavid Evantommie SANON [address] [facility] [address] [place] [phone] Radha Molina DO [address] [facility] [address] [place] [address] Social History Tobacco Use Types Packs/Day Years [...] PM EDT Sexual Orientation Not on file COVID-19 Exposure Response Date Recorded In the last 10 days, have yo u been in contact with someone who was confirmed or suspected to have Coronavirus/COVID-19? No / Unsure 09/29/2022 9:07 AM EDT documented as of this encounter Plan of Treatment Upcoming Encounters Date Type Department Care Team (Late st Contact Info) Description 10/26/2024 10:50 AM EDT Office Visit [facility] [place] [facility] [address] [facility] [address] Camacho Hernandez DO [address] [place] [address] documented as of this encounter Goals Goal Patient Goal Type Associated Problems Recent Progress Patient-Stated? Author Reminders Care Plan OB Reminders No Open Scheduling, Background documented as of this encounter Visit Diagnoses Not on filedocumented in this encounter Additional Health Concerns Active Problems Noted Date Diagnosed Date OB Reminders 09/02/2022 documented as of this encounter Care Teams Yarn Sorter Relationship Specialty Start Date End Date Unallocated, Nomdavid Chapa MD [address] [place] [address] PCP - General 06/29/22 documented as of this encounter
--- OUTSIDE RECORDS SUMMARY | 2024-10-13 08:43 | XMS_ITS | Encounter Summary ---
Author Organization [facility] Address [address] [place] [address] Care Team Providers Care Teacher Early Childhood Development Name Role Phone Unallocated, Noms Provider Primary Care Provi emmanuel Encounter Details Date Type Department Care Team (Late st Contact Info) Description 06/20/2024 Abstract JAGUAR SANON [address] [place] [address] Ce Curry LPN Social History Tobacco Use Types Packs/Day Years [...] Office Visit JAGUAR SANON [address] [place] [address] Camacho Hernandez DO [address] [place] [address] documented as of this encounter Goals Goal Patient Goal Type Associated Problems Recent Progress Patient-Stated? Author Reminders Care Plan OB Reminders No Open Scheduling, Background documented as of this encounter Visit Diagnoses Not on filedocumented in this encounter Additional Health Concerns Active Problems Noted Date Diagnosed Date OB Reminders 09/02/2022 documented as of this encounter Care Teams Teacher Early Childhood Development Relationship Specialty Start Date End Date Unallocated, Noms Provider, [address] [place] [address] PCP - General 06/29/22 documented as of this encounter
--- OUTSIDE RECORDS SUMMARY | 2024-10-13 08:43 | XMS_ITS | Encounter Summary ---
Author Organization [facility] Address [address] [place] [address] Care Team Providers Care Loan Auditor Name Role Phone Unallocated, Noms Provider Primary Care Provi emmanuel Encounter Details Date Type Department Care Team (Late st Contact Info) Description 10/08/2022 Abstract NOMDavid Evantommie SANON [address] [facility] [address] [place] [phone] Radha Molina DO [address] [facility] [address] [place] [address] Social History Tobacco Use Types Packs/Day Years [...] EDT Office Visit [facility] [place] [facility] [address] [facility] [place] [place] [address] Camacho Hernandez DO [address] [place] [address] documented as of this encounter Goals Goal Patient Goal Type Associated Problems Recent Progress Patient-Stated? Author Reminders Care Plan OB Reminders No Open Scheduling, Background documented as of this encounter Visit Diagnoses Not on filedocumented in this encounter Additional Health Concerns Active Problems Noted Date Diagnosed Date OB Reminders 09/02/2022 documented as of this encounter Care Teams Loan Auditor Relationship Specialty Start Date End Date Unallocated, Nomdavid Chapa MD [address] [place] [address] PCP - General 06/29/22 documented as of this encounter
--- OUTSIDE RECORDS SUMMARY | 2024-10-13 08:43 | XMS_ITS | Encounter Summary ---
Author Organization [facility] Address [address] [place] [address] Care Team Providers Care Mechanic Driver Name Role Phone Unallocated, Noms Provider Primary Care Provi emmanuel Encounter Details Date Type Department Care Team (Late st Contact Info) Description 06/16/2024 Abstract NOMGanesh SANON [address] [place] [address] Ce Curry LPN Social History Tobacco [...] Office Visit JAGUAR SANON [address] [place] [address] Camacho Hernandez DO [address] [place] [address] documented as of this encounter Goals Goal Patient Goal Type Associated Problems Recent Progress Patient-Stated? Author Reminders Care Plan OB Reminders No Open Scheduling, Background documented as of this encounter Visit Diagnoses Not on filedocumented in this encounter Additional Health Concerns Active Problems Noted Date Diagnosed Date OB Reminders 09/02/2022 documented as of this encounter Care Teams Mechanic Driver Relationship Specialty Start Date End Date Unallocated, Noms Provider, [address] [place] [address] PCP - General 06/29/22 documented as of this encounter
--- OUTSIDE RECORDS SUMMARY | 2024-10-13 08:43 | XMS_ITS | Encounter Summary ---
Author Organization [facility] Address [address] [place] [address] Care Team Providers Care Rail Car Unloader Name Role Phone Unallocated, Noms Provider Primary Care Provi emmanuel Encounter Details Date Type Department Care Team (Late st Contact Info) Description 08/24/2022 Abstract JAGUAR SANON [address] [facility] [address] [place] [address] Radha Molina DO [address] [facility] [address] [place] [address] Social History Tobacco Use Types Packs/Day Years [...] AM EDT Office Visit JAGUAR SANON [address] [place] [address] Camacho Hernandez DO [address] [facility] [place] [address] documented as of this encounter Visit Diagnoses Not on filedocumented in this encounter Care Teams Rail Car Unloader Relationship Specialty Start Date End Date Unallocated, Noms Provider, [address] [place] [address] PCP - General 06/29/22 documented as of this encounter
--- OUTSIDE RECORDS SUMMARY | 2024-10-13 08:43 | XMS_ITS | Encounter Summary ---
Author Organization [facility] Address [address] [place] [address] Care Team Providers Care Drying Tunnel Operator Name Role Phone Unallocated, Noms Provider Primary Care Provi emmanuel Encounter Details Date Type Department Care Team (Late st Contact Info) Description 06/28/2024 Abstract JAGUAR SANON [address] [place] [address] Ce Curry LPN Social History Tobacco [...] Office Visit JAGUAR SANON [address] [place] [address] Camacho Hernandez DO [address] [place] [address] documented as of this encounter Goals Goal Patient Goal Type Associated Problems Recent Progress Patient-Stated? Author Reminders Care Plan OB Reminders No Open Scheduling, Background documented as of this encounter Visit Diagnoses Not on filedocumented in this encounter Additional Health Concerns Active Problems Noted Date Diagnosed Date OB Reminders 09/02/2022 documented as of this encounter Care Teams Drying Tunnel Operator Relationship Specialty Start Date End Date Unallocated, Noms Provider, [address] [place] [address] PCP - General 06/29/22 documented as of this encounter
--- OUTSIDE RECORDS SUMMARY | 2024-10-13 08:44 | XMS_ITS | Encounter Summary ---
Author Organization [facility] Address [address] [place] [address] Care Team Providers Care Asp Net C Developer Name Role Phone Unallocated, Noms Provider Primary Care Provi emmanuel Encounter Details Date Type Department Care Team (Late st Contact Info) Description 01/07/2024 Clinisync Result Encounter [facility] External Department Unsolicited Liliane Hernandez DO [address] [place] [address] Social History Tobacco Use Types Packs/Day Years [...] received? Associate degree: academic program 08/24/2022 Comments Unknown Sex and Gender Information Value Date Recorded Sex Assigned at Not on file Legal Sex Female 7:10 PM EDT Gender Identity Female 04/29/2022 7:10 PM EDT Sexual Orientation Not on file documented as of this encounter Plan of Treatment Upcoming Encounters Date Type Department Care Team (Late st Contact Info) Description 10/26/2024 10:50 AM EDT Office Visit NOMGanesh [place] OBGYN [address] [place] [phone] Liliane Hernandez DO [address] [place] [address] Dr [address] [place] [id number] documented as of this encounter Goals Goal Patient Goal Type Associated Problems Recent Progress Patient-Stated? Author Reminders Care Plan OB Reminders No Open Scheduling, Background documented as of this encounter Procedures Procedure Name Priority Date/Time Associated Diagnosis Comments US OB TRANSVAGINAL 01/07/2024 4: 45 AM EST documented in this encounter Results * US OB TRANSVAGINAL (01/07/2024 4:45 AM EST) Anatomical Region Laterality Modality Other 01/07/2024 4:45 AM EST Narrative 01/07/2024 4:48 AM EST [address] [address] Ultrasound Report Signed Patient: JENNIFER ALBA MR#: [id number] : 2000 Acct:[id number] Age/Sex: 23 / F ADM Date: 01/06/24 Loc: US Attending Dr: Liliane Hernandez D.O. Ordering Physician: Liliane Hernandez D.O. Date of Service: 01/06/24 Procedure(s): US OB transvaginal Accession Number(s): [id number] cc: Liliane Hernandez D.O.; CARLTON MICHELLE [address] [address] Patient Name: JENNIFER ALBA MRN: [id number] date: 2000 Sex: F Assigned Patient Location: US Current Patient Location: Accession/Order Number: [id number] Exam Date: 01/06/2024 10:00 Report Date: 01/07/2024 04:45 At the request of: LILIANE HERNANDEZ Procedure: US OB transvaginal EXAMINATION: US OB transvaginal HISTORY: Missed menses, Bleeding In Early COMPARISON: No relevant comparison available. FINDINGS: GESTATIONAL SAC: Present YOLK SAC: Present POLE: Present CARDIAC: Present. UTERUS: Normal size and appearance. OVARIES: Right: Corpus lutein cyst. Left: Normal. CERVIX: Closed, but length not measured.. CUL-DE-SAC: Normal. OTHER: None. AGE BY LMP: 6 weeks 4 days LYNDSAY BY LMP: 08/27/2024 AGE BY US CRL: 6 weeks 1 day LYNDSAY BY US CRL: 08/30/2024 US/US OB transvaginal IMPRESSION: 1. Single live intrauterine . Electronically authenticated by: CARLTON BERGER Date: 01/07/2024 04:45 Dictated By: Carlton Berger M.D. Signed By: 01/07/24447 DD/ 4 TD/TT: Typing Checker: Procedure Note Radiology, Radiologist, - 01/07/2024 [place] [address] Ultrasound Report Signed Patient: JENNIFER ALBA EMR#: [id number] : 2000Acct:[id number] Age/Sex: 23 / FADM Date: 01/06/24 Loc: US Attending Dr: Liliane Hernandez D.O. Ordering Physician: Liliane Hernandez D.O. Date of Service: 01/06/24 Procedure(s): US OB transvaginal Accession Number(s): [id number] cc: Liliane Hernandez D.O.; CARLTON MICHELLE [place] [id number] Patient Name: JENNIFER ALBA MRN: [id number] date: 2000 Sex: F Assigned Patient Location: US Current Patient Location: Accession/Order Number: [id number] Exam Date: 01/06/2024 10:00 Report Date: 01/07/2024 04:45 At the request of: LILIANE HERNANDEZ Procedure: US OB transvaginal EXAMINATION: US OB transvaginal HISTORY: Missed menses, Bleeding In Early COMPARISON: No relevant comparison available. FINDINGS: GESTATIONAL SAC: Present YOLK SAC: Present POLE: Present CARDIAC: Present. UTERUS: Normal size and appearance. OVARIES: Right: Corpus lutein cyst. Left: Normal. CERVIX: Closed, but length not measured.. CUL-DE-SAC: Normal. OTHER: None. AGE BY LMP: 6 weeks 4 days LYNDSAY BY LMP: 08/27/2024 AGE BY US CRL: 6 weeks 1 day LYNDSAY BY US CRL: 08/30/2024 US/US OB transvaginal IMPRESSION: 1. Single live intrauterine . Electronically authenticated by: CARLTON BERGER Date: 01/07/2024 04:45 Dictated By: Carlton Berger M.D. Signed By:01/07/24447 DD/ 4 TD/TT: Typing Checker: us Liliane Mary DO [facility] Final Result documented in this encounter Visit Diagnoses Not on filedocumented in this encounter Additional Health Concerns Active Problems Noted Date Diagnosed Date OB Reminders 09/02/2022 documented as of this encounter Care Teams Asp Net C Developer Relationship Specialty Start Date End Date Unallocated, Noms Provider, [address] [place] [address] PCP - General 06/29/22 documented as of this encounter
--- OUTSIDE RECORDS SUMMARY | 2024-10-13 08:44 | XMS_ITS | Encounter Summary ---
Author Organization [facility] tem Address [facility] [id number] [address] [place] [address] Care Team Providers Care Starch Treating Assistant Name Role Phone Martin Chapman MD Primary Care Provider [phone] Encounter Details Date Type Department Care Team (Late st Contact Info) Description 06/16/2024 Abstract Maternal- Medicine at [facility] [address] [facility] [place] [phone] External, Scanning Provider Social History Tobacco Use Types Packs/Day Years Used Date Smoking Tobacco: Never Smokeless Tobacco: Never Alcohol Use Standard Drinks/Week Comments Not Currently 0 (1 standard drink = 0.6 oz pur e alcohol) Childcare Answer Date Recorded Childcare Unknown 07/27/2018 Employment Answer Date Recorded Employment Unknown 07/27/2018 Hunger Screening Answer Date Recorded Within the past 12 months we worried whether our food would run out before we got money to buy more. Never True 04/13/2024 Within the past 12 months th e food we bought just didn't last and we didn't have money to get more. Never True 04/13/2024 Purpose - Life Answer Date Recorded Purpose and direction in life Unknown Comments Yes Sex and Gender Information Value Date Recorded Sex Assigned at Not on file Legal Sex Female 11:56 AM EDT Gender Identity Not on file Sexual Orientation Not on file documented as of this encounter Plan of Treatment Not on file documented as of this encounter Visit Diagnoses Not on filedocumented in this encounter Care Teams Starch Treating Assistant Relationship Specialty Start Date End Date Martin Chapman MD [address] [place] [id number] PCP - General Family Medicine 02/24/18 documented as of this encounter
--- OUTSIDE RECORDS SUMMARY | 2024-10-13 08:44 | XMS_ITS | Encounter Summary ---
Author Organization [facility] Address [address] [facility] [place] [address] Care Team Providers Care Pharmacy Assistant Name Role Phone Unallocated, Noms Provider Primary Care Provi emmanuel Encounter Details Date Type Department Care Team (Late st Contact Info) Description 11/20/2022 External Result Encounter [facility] External Department Unsolicited Jennie Smith MD [address] [facility] [address] [place] [address] Social History Tobacco Use Types Packs/Day Years [...] Description 10/26/2024 10:50 AM EDT Office Visit [facility]ita [facility]BG[facility] [address] [place] [address] [place] [phone] Camacho Hernandez DO [address] [facility] [place] [address] documented as of this encounter Goals Goal Patient Goal Type Associated Problems Recent Progress Patient-Stated? Author Reminders Care Plan OB Reminders No Open Scheduling, Background documented as of this encounter Procedures Procedure Name Priority Date/Time Associated Diagnosis Comments US OB LIMITED 1+ FETUSES 11/20/2022 7:44 PM EDT documented in this encounter Results * US OB limited 1+ fetuses (11/20/2022 7:44 PM EDT) Anatomical Region Laterality Modality Body Ultrasound 11/20/2022 7:44 PM EDT Narrative 01/13/2023 12:22 PM [facility] Main [address] [address] Ultrasound Report Signed Patient: Jennifer Wallace MR#: [id number] : 2000 Acct:[id number] Age/Sex: 22 / F ADM Date: 11/20/22 Loc: Room: [address] [place] [address] Type: REG CLI Attending Dr: Jennie Smith MD Ordering Provider: TELMA Velez Date of Service: 11/20/22 US/US OB limited: history labor, cramping Copies to: TELMA Velez OB ultrasound. Reason for exam:Cramping. History of labor. Comparison:None Technique: Transabdominal imaging of the gravid uterus was obtained. Findings: Single live intrauterine measuring 24 weeks 1 day by anatomic measurements LYNDSAY 03/11/2023. heart rate 1 29 bpm. Estimated weight 1 lb. 6 oz. DAMIAN is normal at 14.8 cm. Cervical length measures 3.4 cm without evidence of funneling. Placenta is posterior in location. No focal placental abnormality is seen. US/US OB limited Impression: Single live intrauterine 24 weeks 1 day by anatomic measurements. Normal DAMIAN. Cervical length measures 3.4 cm without evidence of funneling. Impression dictated by: Richard Kirkland Jr., D.OIdania11/20/2022 7:46 PM Dictation Location: RADIO-PC-15 Tech: Monica Vizcarra Transcribed By: ANDREY 11/20/221945 Dictated By: Richard Kirkland Jr, DO 11/20/221943 Signed By: <Electronically signed by Richard Kirkland Jr, DO in OV> 11/20/221945 Procedure Note Radiology, Radiologist, MD - 01/13/2023 [facility] Main [place] [address] [place] [address] Ultrasound Report Signed Patient: Jennifer Wallace EMR#: [id number] : 2000Acct:[id number] Age/Sex: Date: 11/20/22 Loc: Room: [id number]: REG CLI Attending Dr: Jennie Smith MD Ordering Provider: Jennie Smith MD-[facility] Date of Service: 11/20/22 US/US OB limited: history labor,cramping Copies to: Jennie Smith MD-[facility] OB ultrasound. Reason for exam:Cramping. History of labor. Comparison:None Technique: Transabdominal imaging of the gravid uterus was obtained. Findings: Single live intrauterine measuring 24 weeks 1 day by anatomicmeasurements LYNDSAY 03/11/2023. heart rate 1 29 bpm. Estimated weight 1 lb. 6 oz. DAMIAN isnormal at 14.8 cm. Cervical length measures 3.4 cm without evidence of funneling. Placenta isposterior in location. No focal placental abnormality is seen. US/US OB limited Impression: Single live intrauterine 24 weeks 1 day by anatomicmeasurements. Normal DAMIAN. Cervical length measures 3.4 cm without evidence of funneling. Impression dictated by: Romaine Gonzalez Jr..Priyanka11/20/2022 7:46 PM Dictation Location: RADIO-PC-15 Tech: Monica Vizcarra Transcribed By: ANDREY 11/20/221945 Dictated By: Richard Kirkland Jr, DO 11/20/221943 Signed By: <Electronically signed by Richard Kirkland Jr, DO inOV> 11/20/22 194 us Jennie Smith MD IMG OB US PROCEDURES Final Res ult documented in this encounter Visit Diagnoses Not on filedocumented in this encounter Additional Health Concerns Active Problems Noted Date Diagnosed Date OB Reminders 09/02/2022 documented as of this encounter Care Teams Pharmacy Assistant Relationship Specialty Start Date End Date Unallocated, Noms Provider, Pending sale to [facility] [place] [address] PCP - General 06/29/22 documented as of this encounter
--- OUTSIDE RECORDS SUMMARY | 2024-10-13 08:44 | XMS_ITS | Clinical Summary ---
Author Organization [facility] Address [address] [place] [address] Care Team Providers Care Per Assessment Nurse Name Role Phone Unavailable Primary Care Provider Unavailabl e Social History Tobacco Use Types Packs/Day Years Used Date Smoking Tobacco: Never Assessed Comments Unknown Sex and Gender Information Value Date Recorded Sex Assigned at Not on file Legal Sex Female 10:13 PM EDT Gender Identity Not on file Sexual Orientation Not on file Last Filed Vital Signs Vital Sign Reading Time Taken Comments Blood Pressure 110/64 08/02/2018 3:46 PM EDT Pulse 74 08/02/2018 3:45 PM EDT Temperature - - Respiratory Rate - - Oxygen Saturation 99% 08/02/2018 3:45 PM EDT Inhaled Oxygen Concentration - - Weight 89.8 kg (198 lb) 08/11/2018 10:30 AM EDT Height 160 cm (5' 3 ) 08/11/2018 10:29 AM EDT Body Mass Index 35.07 08/11/2018 10:29 AM EDT Plan of Treatment Health Maintenance Due Date Last Done Comments Depression Screening 2011 Varicella Vaccines (1 of 2 - 13+ 2-dose series) 2012 HPV Vaccines (1 - 3-dose series) 2014 Pap Smear 2020 Adult Tetanus 2021 Influenza Vaccine (#1) 2024 Zoster Vaccines (1 of 2) 2049 HIB Vaccines Aged Out No longer eligi ble based on patient's age to complete this topic IPV Vaccines Aged Out No longer eligi ble based on patient's age to complete this topic Meningococcal B Vaccine Aged Out No l onger eligible based on patient's age to complete this topic Meningococcal Vaccine Aged Out No ramakrishna daniele eligible based on patient's age to complete this topic Pneumococcal Vaccine: Pediat rics (0 to 5 Years) and At-Risk Patients (6 to 64 Years) Aged Out No longer eligible b ased on patient's age to complete this topic Rotavirus Vaccines Aged Out No longer eligible based on patient's age to complete this topic Insurance [facility] [phone] FOR[facility]LY [facility] MEDICAID AETNA
--- OUTSIDE RECORDS SUMMARY | 2024-10-13 08:44 | XMS_ITS | Encounter Summary ---
Author Organization [facility] Address [address] [place] [address] Care Team Providers Care Skein Yard Drier Name Role Phone Unallocated, Noms Provider Primary Care Provi emmanuel Encounter Details Date Type Department Care Team (Late st Contact Info) Description 02/25/2024 Abstract [facility] [address] [place] [phone] Camacho Hernandez DO [address], [facility] Social History Tobacco Use Types Packs/Day Years [...] Office Visit [facility] [address] [place] [address] Camacho Hernandez, [address] [place] [address] documented as of this encounter Goals Goal Patient Goal Type Associated Problems Recent Progress Patient-Stated? Author Reminders Care Plan OB Reminders No Open Scheduling, Background documented as of this encounter Visit Diagnoses Not on filedocumented in this encounter Additional Health Concerns Active Problems Noted Date Diagnosed Date OB Reminders 09/02/2022 documented as of this encounter Care Teams Skein Yard Drier Relationship Specialty Start Date End Date Unallocated, Noms Provider, [place] [address] PCP - General 06/29/22 documented as of this encounter
--- OUTSIDE RECORDS SUMMARY | 2024-10-13 08:44 | XMS_ITS | Encounter Summary ---
Author Organization [facility] Address [address] [place] [address] Care Team Providers Care Foreclosure Clerk Name Role Phone Unallocated, Noms Provider Primary Care Provi emmanuel Encounter Details Date Type Department Care Team (Late st Contact Info) Description 02/29/2024 Abstract [facility] [address] [place] [phone] Camacho Hernandez DO [address], [facility]11 Social History Tobacco Use Types Packs/Day Years [...] Office Visit [facility] [address] [place] [address] Camacho Hernandez, [address] [place] [address] documented as of this encounter Goals Goal Patient Goal Type Associated Problems Recent Progress Patient-Stated? Author Reminders Care Plan OB Reminders No Open Scheduling, Background documented as of this encounter Visit Diagnoses Not on filedocumented in this encounter Additional Health Concerns Active Problems Noted Date Diagnosed Date OB Reminders 09/02/2022 documented as of this encounter Care Teams Foreclosure Clerk Relationship Specialty Start Date End Date Unallocated, Noms Provider, [place] [address] PCP - General 06/29/22 documented as of this encounter
--- OUTSIDE RECORDS SUMMARY | 2024-10-13 08:44 | XMS_ITS | Clinical Summary ---
Author Organization [facility] Address [address] [place] [address] Care Team Providers Care Public Health Aides Teacher Name Role Phone Unallocated, Noms Provider Primary Care Provi emmanuel Allergies No known active allergies Medications promethazine (Phenergan) 12.5 MG tabletIndicatio ns:Chronic cluster headache, not intractable Take 1 tablet (12.5 mg) by mouth every 6 (six) hours if needed for nausea or vomiting for up to 30 doses Take 1 tablet by mouth every 6 hours as needed for nausea. 30 tablet 2 06/02/19 25 Active acetaminophen-c odeine (Tylenol w/ Codeine #3) 300-30 MG tabletIndicatio ns:Chronic cluster headache, not intractable Take 1 tablet by mouth every 6 (six) hours if needed for severe pain for up to 20 doses 20 tablet 06/02/19 25 Active Kariva 0.15-0.02/0.01 MG (05/07) tablet 1 (one) time each day at the same time 10/21/19 24 Active Trulicity 0.75 MG/0.5ML solution auto-injector INJECT 0.5ML (0.75MG) SUBCUTANEOUSLY ONCE A WEEK Active ALPRAZolam (Xanax) 0.25 MG tablet every 12 (twelve) hours 10/21/19 24 Active Docusate Sodium (DSS) 100 MG capsule Take 100 mg by mouth in the morning and 100 mg in the evening. 05/16/20 25 Active Vyvanse 50 MG capsule 1 (one) time each day at the same time 10/21/19 24 Active Active Problems Problem Noted Date Diagnosed Date Amenorrhea, secondary 06/25/2022 Amenorrhea 06/25/2022 Anxiety 06/25/2022 Calculus of gallbladder with acute on chronic cholecystitis without obstruction 06/25/2022 History of delivery, currently ([facility]) 06/25/2022 Mixed anxiety and depressive disorder 06/25/2022 Other specified re lated conditions, third trimester ([facility]) 06/25/2022 Polyhydramnios affecting pre gnancy in third trimester ([facility]) 06/25/2022 Right upper quadrant pain 06/25/2022 Resolved Problems Problem Noted Date Diagnosed Date Resolved Date Gestational diabetes mellitu s (GDM), antepartum ([facility]) 06/25/2022 06/29/2024 Encounters Date Type Department Care Team Description 09/19/2024 2:00 PM EDT Consult [facility] [place] [address] Camacho Hernandez DO Pre-op examination; Request for sterilization 08/09/2024 11:30 AM EDT Visit [facility] [place] [address] Kim Khoury, YNES 6 weeks follow-up ([facility]) from Last 3 Months Immunizations Immunization Administration Dates Next Due Hep B, Adolescent or Pediatric 07/21/2000 IPV 1999 MMR 07/21/2000 Novel [id number], preservative-free 12/13 Tdap 02/15/2010 Family History Medical History Relation Name Comments Allergies Brother seasonal Asthma Brother Seizures Cousin Diabetes Father Hypertension Maternal Grandfather Depression Maternal Grandmother Hypertension Maternal Grandmother Diabetes Mother Cancer Paternal Grandfather Diabetes Paternal Grandfather Cancer Paternal Grandmother Relation Name Status Comments Brother 2 Cousin Daughter 1, healthy Father Alive Maternal Grandfather Alive Maternal Grandmother Alive Mother Alive Paternal Grandfather Paternal Grandmother Sister 1 Son 4 Social History Tobacco Use Types Packs/Day Years [...] received? Associate degree: academic program 08/24/2022 Comments No Sex and Gender Information Value Date Recorded Sex Assigned at Not on file Legal Sex Female 7:10 PM EDT Gender Identity Female 04/29/2022 7:10 PM EDT Sexual Orientation Not on file Last Filed Vital Signs Vital Sign Reading Time Taken Comments Blood Pressure 122/72 09/19/2024 2:25 PM EDT Pulse 113 05/29/2024 12:36 PM EDT Temperature 36.8 C (98.2 F) 05/29/2024 12:36 PM EDT Respiratory Rate - - Oxygen Saturation 97% 05/29/2024 12:36 PM EDT Inhaled Oxygen Concentration - - Weight 106 kg (233 lb) 09/19/2024 2:25 PM EDT Height 160 cm (5' 3 ) 07/28/2022 9:36 AM EDT Body Mass Index 41.27 07/28/2022 9:36 AM EDT Plan of Treatment Upcoming Encounters Date Type Department Care Team (Late st Contact Info) Description 10/26/2024 10:50 AM EDT Office Visit [facility] [address] [facility] [place] [phone] Camacho Hernandez DO [address] [facility] [place] [address] Health Maintenance Due Date Last Done Comments Influenza Vaccine (#1) 2024 04/09/2023, 2020 Goals Goal Patient Goal Type Associated Problems Recent Progress Patient-Stated? Author Reminders Care Plan OB Reminders No Open Scheduling, Background Additional Health Concerns Active Problems Noted Date Diagnosed Date OB Reminders 09/02/2022 Insurance [employer] Care Teams Public Health Aides Teacher Relationship Specialty Start Date End Date Unallocated, Noms Provider, [address] [place] [address] PCP - General 06/29/22
--- OUTSIDE RECORDS SUMMARY | 2024-10-13 08:44 | XMS_ITS | Encounter Summary ---
Author Organization [facility] Address [address] [place] [address] Care Team Providers Care Flight Control Tower Operator Name Role Phone Unallocated, Noms Provider Primary Care Provi emmanuel Encounter Details Date Type Department Care Team (Late st Contact Info) Description 02/16/2023 Abstract [facility] [address] [facility] [address] [place] [phone] Ede Olvera MD [address] [facility] [address] [place] [address] Social History Tobacco Use Types Packs/Day Years [...] AM EDT Office Visit [facility] [address] [facility] [place] [address] Camacho Hernandez, DO [address] [place] [address] documented as of this encounter Goals Goal Patient Goal Type Associated Problems Recent Progress Patient-Stated? Author Reminders Care Plan OB Reminders No Open Scheduling, Background documented as of this encounter Visit Diagnoses Not on filedocumented in this encounter Additional Health Concerns Active Problems Noted Date Diagnosed Date OB Reminders 09/02/2022 documented as of this encounter Care Teams Flight Control Tower Operator Relationship Specialty Start Date End Date Unallocated, Noms Provider, [place] [address] PCP - General 06/29/22 documented as of this encounter
--- OUTSIDE RECORDS SUMMARY | 2024-10-13 08:44 | XMS_ITS | Clinical Summary ---
Author Organization [employer] [facility] Address [id number] [address] [place] [address] Care Team Providers Care Chronic Disease Epidemiologist Name Role Phone Martin Chapman MD Primary Care Provider [phone] Allergies No known active allergies Medications 25/iron fum/folic/dha (-1 ORAL) Take by mouth. Activ e azithromycin (ZITHROMAX Z-VALENCIA) 250 mg tablet Take 2 tablets the first day then 1 tablet every day for 4 days. 6 tablet 9 Active Additional Information Patient not taking.Reported on 04/13/2024 venlafaxine XR (EFFEXOR XR) 75 mg 24 hr capsule Take 1 capsule (75 mg total) by mouth in the morning. Active ferrous sulfate 325 (65 FE) MG tablet Take 1 tablet (325 mg total) by mouth daily with breakfast. Active progesterone (FIRST-PROGESTER ONE VGS) 200 mg suppository Insert 1 suppository (200 mg total) into the vagina nightly. Active magnesium oxide (MAGOX) 400 mg tablet Take 1 tablet (400 mg total) by mouth in the morning. Active acetaminophen (TYLENOL EXTRA STRENGTH) 500 mg tablet Take 2 tablets (1,000 mg total) by mouth every 8 (eight) hours as needed for pain. 30 tablet 5 Active docusate sodium (COLACE) 100 mg capsule Take 1 capsule (100 mg total) by mouth in the morning and 1 capsule (100 mg total) before bedtime. 60 capsule 5 Active ibuprofen (MOTRIN) 800 mg tablet Take 1 tablet (800 mg total) by mouth every 8 (eight) hours as needed (cramping). 30 tablet Active Active Problems Problem Noted Date Diagnosed Date labor 06/28/2024 delivery after section 04/13/19 25 Encounters Date Type Department Care Team Description 07/24/2024 Encounter [facility] 3E NICU [address] [place] [address] 07/17/2024 Encounter [facility] 3W NICU [address] [place] [address] from Last 3 Months Immunizations No known immunizations Family History Medical History Relation Name Comments Diabetes Father Hypertension Maternal Grandfather Depression Maternal Grandmother Hypertension Maternal Grandmother Diabetes Mother Cancer Paternal Grandfather Diabetes Paternal Grandfather Cancer Paternal Grandmother Relation Name Status Comments Father Maternal Grandfather Maternal Grandmother Mother Paternal Grandfather Paternal Grandmother Social History Tobacco Use Types Packs/Day Years Used Date Smoking Tobacco: Never Smokeless Tobacco: Never Tobacco Cessation:Counseling Given: Not Answered Alcohol Use Standard Drinks/Week Comments Not Currently [...] Purpose and direction in life Unknown Comments No Sex and Gender Information Value Date Recorded Sex Assigned at Not on file Legal Sex Female 11:56 AM EDT Gender Identity Not on file Sexual Orientation Not on file Last Filed Vital Signs Vital Sign Reading Time Taken Comments Blood Pressure 120/50 06/30/2024 7:22 AM EDT Pulse 86 06/30/2024 7:22 AM EDT Temperature 36.5 C (97.7 F) 06/30/2024 7:22 AM EDT Respiratory Rate 17 06/30/2024 7:22 AM EDT Oxygen Saturation 100% 06/29/2024 9:10 AM EDT Inhaled Oxygen Concentration - - Weight 102.5 kg (226 lb) 06/28/2024 1:59 PM EDT Height 160 cm (5' 2.99 ) 06/28/2024 1:59 PM EDT Body Mass Index 40.04 06/28/2024 1:59 PM EDT Plan of Treatment Health Maintenance Due Date Last Done Comments Depression Screening 2011 Adult BMI Follow Up Plan 2017 COVID-19 Vaccine (2 - 2023-2 5 season) 2023 04/12/2023 Influenza Vaccine 10/16/2024 11/21/2023, , 04/09/2023, Additional history exists Adult BMI Screening 06/28/2025 06/28/2024 Tobacco Screening 06/30/2025 06/30/2024 Pap Smear 04/06/2027 04/06/2024 DTaP,Tdap and Td Vaccines (5 - Td or Tdap) 02/13/2033 02/13/2023, 02/15/2010, 07/21/2000, Additional history exists Medical Devices Not on file Insurance [employer] [place] [employer] Advance Directives * Full Code (Latest Code Status on File) Date Activated Date Inactivated Comments 06/28/2024 12:39 PM 06/30/2024 1:45 PM Care Teams Chronic Disease Epidemiologist Relationship Specialty Start Date End Date Martin Chapman MD [address] [place] [id number] PCP - General Family Medicine 02/24/18
--- OUTSIDE RECORDS SUMMARY | 2024-10-13 08:44 | XMS_ITS | Encounter Summary ---
Author Organization [facility] Address [address] [place] [address] Care Team Providers Care Cash Applications Clerk Name Role Phone Unallocated, Noms Provider Primary Care Provi emmanuel Encounter Details Date Type Department Care Team (Late st Contact Info) Description 02/03/2024 Clinisync Result Encounter [facility] External Department Unsolicited Liliane Hernandez DO [address] [place] [address] Social History Tobacco Use Types Packs/Day [...] Visit [facility] [address] [place] [phone] Liliane Hernandez DO [address] [place] [address] Dr [address] [place] [id number] documented as of this encounter Goals Goal Patient Goal Type Associated Problems Recent Progress Patient-Stated? Author Reminders Care Plan OB Reminders No Open Scheduling, Background documented as of this encounter Procedures Procedure Name Priority Date/Time Associated Diagnosis Comments US OB TRANSVAGINAL 02/03/2024 1: 13 PM EST documented in this encounter Results * US OB TRANSVAGINAL (02/03/2024 1:13 PM EST) Anatomical Region Laterality Modality Other 02/03/2024 1:13 PM EST Narrative 02/03/2024 1:15 PM EST [address] [address] Ultrasound Report Signed Patient: JENNIFER ALBA MR#: [id number] : 2000 Acct:[id number] Age/Sex: 23 / F ADM Date: 02/03/24 Loc: [facility] Attending Dr: Liliane Hernandez D.O. Ordering Physician: Liliane Hernandez D.O. Date of Service: 02/03/24 Procedure(s): US OB transvaginal Accession Number(s): [id number] cc: Liliane Hernandez D.O.; OBDULIA MICHELLE [address] [address] Patient Name: JENNIFER ALBA MRN: [id number] date: 2000 Sex: F Assigned Patient Location: [facility] Current Patient Location: [facility] Accession/Order Number: [id number] Exam Date: 02/03/2024 12:31 Report Date: 02/03/2024 13:13 At the request of: LILIANE HERNANDEZ Procedure: US OB transvaginal EXAMINATION: US OB transvaginal HISTORY: MISSED MENSES COMPARISON: 01/06/2024 FINDINGS: Blanchard intrauterine gestation Gestational sac: 4.55 cm, 10 weeks 1 day CRL: 4.2 cm, 11 weeks 1 day Yolk sac: 4.2 mm Heart rate: 175 beats minute Cervix: Closed, 4.5 cm Clinical age: 10 weeks 4 days Clinical LYNDSAY: 08/27/2024 Ultrasound age: 11 weeks 1 day Ultrasound LYNDSAY: 08/23/2024 US/US OB transvaginal IMPRESSION: Viable blanchard intrauterine gestation measuring 11 weeks 1 day Electronically authenticated by: SUMEET SHEPPARD Date: 02/03/2024 13:13 Dictated By: Sumeet Sheppard M.D. Signed By: 02/03/24 1315 DD/ 131 TD/TT: Tire Sorter: Procedure Note Radiology, Radiologist, MD - 02/03/2024 [place] [address] Ultrasound Report Signed Patient: JENNIFER ALBA EMR#: [id number] : 2000Acct:[id number] Age/Sex: 23 FADM Date: 02/03/24 Loc: [facility] Attending Dr: Liliane Hernandez D.O. Ordering Physician: Liliane Hernandez D.O. Date of Service: 02/03/24 Procedure(s): US OB transvaginal Accession Number(s): [id number] cc: Liliane Hernandez D.O.; OBDULIA MICHELLE [place] [id number] Patient Name: JENNIFER ALBA MRN: [facility]:[id number] date: 2000 Sex: F Assigned Patient Location: [facility] Current Patient Location: [facility] Accession/Order Number: [id number] Exam Date: 02/03/2024 12:31 Report Date: 02/03/2024 13:13 At the request of: LILIANE HERNANDEZ Procedure: US OB transvaginal EXAMINATION: US OB transvaginal HISTORY: MISSED MENSES COMPARISON: 01/06/2024 FINDINGS: Blanchard intrauterine gestation Gestational sac: 4.55 cm, 10 weeks 1 day CRL: 4.2 cm, 11 weeks 1 day Yolk sac: 4.2 mm Heart rate: 175 beats minute Cervix: Closed, 4.5 cm Clinical age: 10 weeks 4 days Clinical LYNDSAY: 08/27/2024 Ultrasound age: 11 weeks 1 day Ultrasound LYNDSAY: 08/23/2024 US/US OB transvaginal IMPRESSION: Viable blanchard intrauterine gestation measuring 11 weeks 1 day Electronically authenticated by: SUMEET SHEPPARD Date: 02/03/2024 13:13 Dictated By: Sumete Sheppard M.D. Signed By:02/03/24 131 DD/ 131 TD/TT: Tire Sorter: us Liliane Mary DO [facility] Final Result documented in this encounter Visit Diagnoses Not on filedocumented in this encounter Additional Health Concerns Active Problems Noted Date Diagnosed Date OB Reminders 09/02/2022 documented as of this encounter Care Teams Cash Applications Clerk Relationship Specialty Start Date End Date Unallocated, Noms Provider, [address] [place] [address] PCP - General 06/29/22 documented as of this encounter
--- OUTSIDE RECORDS SUMMARY | 2024-10-13 08:44 | XMS_ITS | Encounter Summary ---
Author Organization [facility] Address [address] [place] [address] Care Team Providers Care R D Engineer Name Role Phone Unallocated, Noms Provider Primary Care Provi emmanuel Encounter Details Date Type Department Care Team (Late st Contact Info) Description 03/06/2024 Abstract [facility] [address] [place] [phone] Camacho Hernandez DO [address], [facility] Social History Tobacco Use Types Packs/Day Years [...] Office Visit [facility] [address] [place] [address] Camacho Hernandez, [address] [place] [address] documented as of this encounter Goals Goal Patient Goal Type Associated Problems Recent Progress Patient-Stated? Author Reminders Care Plan OB Reminders No Open Scheduling, Background documented as of this encounter Visit Diagnoses Not on filedocumented in this encounter Additional Health Concerns Active Problems Noted Date Diagnosed Date OB Reminders 09/02/2022 documented as of this encounter Care Teams R D Engineer Relationship Specialty Start Date End Date Unallocated, Noms Provider, [place] [address] PCP - General 06/29/22 documented as of this encounter
--- OUTSIDE RECORDS SUMMARY | 2024-10-13 08:44 | XMS_ITS | Patient Health Record ---
Author Organization [facility] Address [address] [place] [address] Care Team Providers Care Medical Collections Representative Name Role Phone Nataly Toure Primary Care Provider [phone] Allergies No Known Allergies Results Component Value Reference Range Notes Thyroid Stim Hormone w/Rflx Reviewed date:08/21/2024 05:34:30 PM Interpretation: Performing Lab: Notes/Report: Reason for Exam Hypothyroidism, unspecified type Reason for Exam High blood triglycerides Reason for Exam Iron deficiency Reason for Exam Fatty liver Thyroid Stim Hormone w/Rflx 2.50 0.45-5.33 u[i U]/mL Lipid Panel Reviewed date:08/21/2024 05:34:52 PM Interpretation: Performing Lab: Notes/Report: Reason for Exam Fatty liver Reason for Exam Iron deficiency Reason for Exam High blood triglycerides Reason for Exam Hypothyroidism, unspecified type Cholesterol 169 140-200 mg/dL Chol less than 200 mg/dl low risk Chol 201-239 mg/dl borderline risk Chol 240 mg/dl and greater high risk HDL Cholesterol 38 23-92 mg/dL HDL CHOL ATP-III CLASSIFICATION Cardiovascular Risk HDL > or equal to 60 mg/dL LOW HDL < 40 mg/dL HIGH Triglyceride w/Reflex 250 0-149 mg/dL TRIG ATP III CLASSIFICATION TRIG less than 150 mg/dL Normal TRIG 150-199 mg/dL Borderline high TRIG 200-500 mg/dL High TRIG greater than 500 mg/dL Very high Standard traceable to the Center for Disease Conrtrol and Prevention (CDC) test method. LDL Cholesterol,Calculated 81 0-100 mg/dL LDL ATP III CLASSIFICATION LDL less than 100 mg/dL Optimal LDL 100-129 mg/dL Near or above optimal LDL 130-159 mg/dL Borderline high LDL 160-189 mg/dL High LDL greater than 189 mg/dL Very high VLDL CHOLESTEROL 50 Chol/HDL Ratio 4.4 <5.0 Ferritin Reviewed date:08/21/2024 05:34:59 PM Interpretation: Performing Lab: Notes/Report: Reason for Exam Fatty liver Reason for Exam Iron deficiency Reason for Exam High blood triglycerides Reason for Exam Hypothyroidism, unspecified type Ferritin 41.5 11.0-306.8 ng/mL Comprehensive Metabolic Pane l Reviewed date:08/21/2024 05:35:32 PM Interpretation: Performing Lab:, [facility], [address] [place] Notes/Report: Reason for Exam Fatty liver Reason for Exam Iron deficiency Reason for Exam High blood triglycerides Reason for Exam Hypothyroidism, unspecified type Glucose 132 70-100 mg/dL Random Glucose Reference Range is dependent on time and content of last meal. Glucose of more than 200 mg/dL in a nonstressed, ambulatory subject supports the diagnosis of Diabetes Mellitus. ADA recommended reference range Blood Urea Nitrogen 13 7-25 mg/dL Creatinine 0.68 0.60-1.20 mg/dL Sodium 138 136-145 mmol/L Potassium 4.3 3.5-5.1 mmol/L Chloride 106 98-107 mmol/L Carbon Dioxide 25.5 21.0-31.0 mmol/L Calcium 9.3 8.6-10.3 mg/dL Total Protein 7.2 6.4-8.9 g/dL Albumin Level 4.3 3.5-5.7 g/dL Globulin 2.9 Albumin/Globulin Ratio 1.5 Bilirubin,Total 0.5 0.3-1.0 mg/dL Aspartate Amino Transferase 12 13-39 U/L Alanine Aminotransferase 14 7-52 U/L Alkaline Phosphatase 84 34-104 U/L Estimated GFR >60.0 Anion Gap 10.8 6.0-15.0 Iron and TIBC Profile Reviewed date:08/21/2024 05:44:55 PM Interpretation: Performing Lab: Notes/Report: Reason for Exam Fatty liver Reason for Exam Iron deficiency Reason for Exam High blood triglycerides Reason for Exam Hypothyroidism, unspecified type Iron 57 50-212 ug/dL Total Iron Binding Capacity 351 255-450 ug/dL % Iron Saturation 16.2 20-50 % Transferrin 251 203-362 mg/dL Hemoglobin A1c Reviewed date:08/17/2024 12:52:37 PM Interpretation:5.5 Performing Lab: Notes/Report: 5.5 Hemoglobin A1c 5.5 5 - 7.9 % Complete Blood Count Auto Di ff Reviewed date:08/21/2024 05:35:56 PM Interpretation: Performing Lab:, [facility], [address] [place] Notes/Report: Reason for Exam Fatty liver White Blood Count 7.4 3.8-11.6 [CFU]/mL Uncorrected WBC 7.4 3.8-11.6 10*3/uL Red Blood Count 4.90 3.60-5.00 10*6/uL Hemoglobin 13.1 11.8-15.4 g/dL Hematocrit 39.2 34.0-46.4 % Mean Corpuscular Volume 79.9 80-100 fL Mean Corpuscular Hemoglobin 26.6 24.7-34.3 pg Mean Corpuscular HGB Conc 33.3 32.0-35.0 g/dL Red Cell Distribution Width 14.5 11.9-15.3 % Platelet Count 234 150-450 10*3/uL Mean Platelet Volume 9.1 6.3-10.7 fL Neutrophils % (Auto) 63.8 . % Lymphocytes % (Auto) 28.3 . % Monocytes % (Auto) 6.2 . % Eosinophils % (Auto) 1.2 . % Basophils % (Auto) 0.5 . % NRBC% 0.1 0-0.5 /100{WBC} Neutrophils # (Auto) 4.7 1.8-7.7 10*3/uL Lymphocytes # (Auto) 2.1 1.00-4.8 10*3/uL Monocytes # (Auto) 0.5 0.0-0.8 10*3/uL Eosinophils # (Auto) 0.1 0.0-0.45 10*3/uL Basophils # (Auto) 0.0 0.0-0.2 10*3/uL Reason For Referral No Information Medications Medication SIG (Take, Route, Frequency, Duration) Notes Start Date End Date Status ALPRAZolam 0.25 MG 1 tablet Orally Twice a day; Duration: 30 days As needed 10/21/2023 Active Trulicity 0.75 MG/0.5ML as directed Subc utaneous once a week; Duration: 30 days 10/16/2024 Active Vyvanse 30 MG 1 capsule in the mor tamika Orally Once a day; Duration: 30 days 08/17/2024 Active ACCRUFeR 30 MG 1 capsule 1 hour bef ore or 2 hours after meals Orally Twice a day; Duration: 30 day(s) 03/18/2023 Active Venlafaxine HCl ER 75 MG TAKE 1 CAPSULE BY MOUTH ONCE DAILY WITH FOOD; Duration: 30 Active Kariva 0.15-0.02/0.01 MG (05/07) 1 tablet Orally Once a day; Duration: 28 days 10/21/2023 Active Social History Tobacco Use: Social History Observation Description Date Details (start date - stop date) Never Smoker NA - NA Sex Assigned At : Social History Observation Description Sex Assigned At Female Tobacco Screen: Question Answer Notes Are you a: never smoker Sexual Hx: Question Answer Notes Had sex in the last 12 months (vaginal, oral, or anal)? Yes with Men only Have you ever had an STD? No LMP: 04/15/2022 Alcohol Screening: Question Answer Notes Did you have a drink contain ing alcohol in the past year? Yes How often did you have a dri nk containing alcohol in the past year? Monthly or less (1 point) How many drinks did you have on a typical day when you were drinking in the past year? 3 or 4 (1 point) How often did you have six o r more drinks on one occasion in the past year? Never (0 points) Points 2 Interpretation Negative Tobacco Control (Standard) Question Answer Notes Tobacco use: Nonsmoker Problems Problem Type SNOMED Code ICD Code Onset Dates Problem Status W/U Status Risk Notes Problem Iron deficiency (16499070) Iron deficiency (E61.1) Active confirmed Problem Anxiety disorder (775057592) Other specified anxiety disorders (F41.8) Active confirmed Problem Primary insomnia (0904401) Primary insomnia (F51.01) Active confirmed Problem Anxiety (05136627) Anxiety (F41.9) Active confi rmed Problem Irregular periods (64257712) Irregular periods (N92.6) Active confirmed Problem Obesity (736899436) Obesity, unspecified (E66.9) Active confirmed Problem Hypothyroidism (66117182) Hypothyroidism, unspecified type (E03.9) Active confirmed Problem Fatty liver (314734717) Fatty liver (K76.0) Active confirmed Problem Attention deficit hyperactivity disorder (851798814) Adult ADHD (F90.9) Active confirmed Problem History of gestational diabetes mellitus (815011756) History of gestational diabetes (Z86.32) Active confirmed Problem Displacement of lumbar intervertebral disc without myelopathy (78404402) Herniation of intervertebral disc of lumbar spine (M51.26) Active confirmed Problem History of excision of intestinal structure (929090335) S/P laparoscopic cholecystectomy (Z90.49) Active confirmed Problem Pure hyperglyceridemia (325315891) High blood triglycerides (E78.1) Active confirmed Problem Severe major depression, single episode, without psychotic features (55687705) Current severe episode of major depressive disorder without psychotic features, unspecified whether recurrent (F32.2) Active confirmed Problem Gallbladder ston e with nonacute cholecystitis (K80.10) Active confirmed Problem Obese class II (083701023341914) Body mass index [BMI] 35.0-35.9, adult (Z68.35) Active confirmed Problem Insulin resistance syndrome (725227307) Insulin resistance syndrome (E88.81) Active confirmed Vital Signs Heart Rate 82 /min 08/17/2024 Temperature 97.9 degrees Fahrenheit 08/17/2024 Respiratory Rate 18 /min 08/17/2024 Blood pressure diastolic 81 mm Hg 08/17/2024 Oximetry 99 % 08/17/2024 Height 63 in 08/17/2024 Blood pressure systolic 116 mm Hg 08/17/2024 Weight 234.6 lbs 08/17/2024 BMI 41.55 kg/m2 08/17/2024 Encounters Encounter Location Date Provider Diagnosis [facility] [address] [place] [address] 08/21/2024 Nataly Toure [facility] [address] [place] [address] 10/21/2023 Nataly Jernigan Iron deficiency E61. 1 ; Herniation of intervertebral disc of lumbar spine M51.26 ; Current severe episode of major depressive disorder without psychotic features, unspecified whether recurrent F32.2 ; Swelling R60.9 ; Adult ADHD F90.9 ; Anxiety F41.9 ; Insulin resistance syndrome E88.81 ; Irregular periods N92.6 and Cervicalgia M54.2 [facility] [address] [facility] [place] [address] 08/17/2024 Nataly Tejal History of gestation al diabetes Z86.32 ; Hypothyroidism, unspecified type E03.9 ; Current severe episode of major depressive disorder without psychotic features, unspecified whether recurrent F32.2 ; Iron deficiency E61.1 ; Fatty liver K76.0 ; High blood triglycerides E78.1 ; Adult ADHD F90.9 ; Swelling R60.9 and Insulin resistance syndrome E88.81 Assessments Encounter Date Diagnosis (ICD Code) Assessment Notes Treatment Notes Treatment Clinical Notes Section Notes 10/21/2023 Iron deficiency (ICD-10 - E61.1) continue iron supplement until iron transfusions are approvied, continue with hematology, will get US st to irregular periods, increase oral fluids and advised to take stool softener as iron can cause constipation. Also can change color of stool. Will repeat cbc and iron studies to monitor effectiveness. Discussed foods rich an iron. 10/21/2023 Herniation of intervertebral disc of lumbar spine (ICD-10 - M51.26) CT done in ER showed disc herniations, stenosis, surgeon will not see pt w/o MRI, has completed PT, epidurals in the past w/o relief. Would like to see surgeon 08/17/2024 Hypothyroidism, unspecified type (ICD-10 - E03.9) monitor TSH and titrate medication as needed. Pt understands to take the medication jesus thing in am on an empty stomach for best results. Potential side effects discussed. Pt aware of symptoms of under-active thyroid including, heat/cold intolerance, wt gain, thinning hair/hair loss, brittle nails. If you experience the above symptoms, return to office for lab work and possible adjustment of medication. 08/17/2024 History of gestational diabetes (ICD-10 - Z86.32) Pt borderline diabetic prior to , was on trulicity. Will repeat labs to see where she is at today. Pt is concerned about her weight, we will discuss weight loss. 08/17/2024 Current severe episode of major depressive disorder without psychotic features, unspecified whether recurrent (ICD-10 - F32.2) restart her effexor at lower dose, explained with hx of depression and anxiety with current , pt is at increase risk for and pychosis. She is aware of this. She has help at home and is sleeping. we discussed signs of increasing depression and to immediately call for help. She Vu n poc. 10/21/2023 Current severe episode of major depressive disorder without psychotic features, unspecified whether recurrent (ICD-10 - F32.2) Continue medication mom just dx with throat and stomach cancer pending treatment, potential side effects were discussed as well as proper administration of medication. Pt verbalizes understanding. Pt is aware not to stop medication suddenly and to come to office to be weaned down, abrupt discontinuation can cause withdrawal symptoms. Stable mood today, no c/o SI/HI, if feelings occur pt to call 911/ER. Discussed coping mechanisms such as exercise, group therapy, and counseling. 10/21/2023 Swelling (ICD-10 - R60.9) pt requested medication refills today, refills sent per request 08/17/2024 Iron deficiency (ICD-10 - E61.1) hx of severe iron def, has had infusion in the past. will need to restart likely, will check labs. She is no longer taking iron or vitamin 10/21/2023 Adult ADHD (ICD-10 - F90.9) patient tolerating medication w/o side effects. Weight stable. No signs of mis-use or abuse. Oarrs reviewed and consistent, random drug screens in place for compliance. 08/17/2024 Fatty liver (ICD-10 - K76.0) weight loss encouraged and is the treatment for fatty liver. Avoid alcohol. Eat foods balanced meals, avoid fatty, greasy, fried foods. Daily exercise is encourage. 10/21/2023 Anxiety (ICD-10 - F41.9) Pt with panic disorder, stable on maintenance medications, requesting refill on short acting benzo for acute attacks. [place] was reviewed and does no show miss use or abuse. A low quantity will be provided. Pt understands that this is a controlled substance, do not share, sell, or take more than prescribed. Pt can be subjected to random drug tests, if illicit drugs or non-prescribed medications are found you will be referred to a addiction program and will no longer receive medication. Counseling is encouraged. SI/HI go to the ER/911 08/17/2024 High blood triglycerides (ICD-10 - E78.1) lipid panel every 3-6 months with CMP to monitor liver and renal function, adjust medications accordingly. Discussed a low chol diet. Enc moderate daily exercise. If you develop any muscle cramping, leg cramps/pain, intolerance to medication please RTO. 08/17/2024 Adult ADHD (ICD-10 - F90.9) would like to rest art medication prior to tolerated well w/o side effects. Weight stable. No signs of mis-use or abuse. Oarrs reviewed and consistent, random drug screens in place for compliance. 10/21/2023 Insulin resistance syndrome (ICD-10 - E88.81) insulin levels elevated, this occurs when the pancreas is making excess insulin and the cells of your muscles, liver, and fat do not respond, causing excess glucose. If untreated, in time you may develop diabetes. This is reversable with weight loss, exercise 30 min a day, and a diet high in fruits, vegetables, legumes, and lean protein. AIC will be monitored. Given level of insulin will start medication today to help in weight loss and glucose control. 10/21/2023 Irregular periods (ICD-10 - N92.6) will start BC pills, also will get transvaginal uS< may need to send to OB at [facility] for ablasion and tubal. Unable to reach own OB by phone 08/17/2024 Swelling (ICD-10 - R60.9) 08/17/2024 Insulin resistance syndrome (ICD-10 - E88.81) insulin levels elevated, this occurs when the pancreas is making excess insulin and the cells of your muscles, liver, and fat do not respond, causing excess glucose. If untreated, in time you may develop diabetes. This is reversable with weight loss, exercise 30 min a day, and a diet high in fruits, vegetables, legumes, and lean protein. AIC will be monitored. restart trulicity 10/21/2023 Cervicalgia (ICD-10 - M54.2) conservative measures recommended. Warm compresses can be helpful as well as neck exercises. For pain, advised to take tylenol 500 mg 1-2 every 6-8 hours w/o exceeding 3000 mg in 24 hour period. Short term f/u. pending results will discuss PT referral. Complete loss of function, severe pain you need to go to the ER. Pt likely from stress and carrying children on right side. 08/17/2024 Other Body Mass Index : Care Instructions material was published, Body Mass Index: Care Instructions material was printed Plan Of Treatment No Information Insurance Providers Payer Name Payer Address Payer Phone Subscriber Number Group Number Insured Name Patient Relationship to Insured Coverage Start Date Coverage End Date [employer] [place] [employer] [address] CLAIMS [place] [address] [id number] ROSETTE ALBA Self - patient is the insured 3 [employer] [facility] [address] [place] [address] [id number] ROSETTE ALBA Self - patient is the insured 3 Medications Administered Medication Instructions Date of Administration Dosage Notes TORADOL 09/30/2023 60 mg Medical (General) History Surgical History Surgery Date(Month/Year) TUBES B/L EARS 2002 GALLBLADDER REMOVED 06/29/2022 Hospitalization History Reason Date(Month/Year) VAGINAL 02/13/23 VAGINAL 2021 VAGINAL 2020 VAGINAL 2017 VAGINAL 2015 VAGINAL 2014 Vaginal 06/29/2024
--- OUTSIDE RECORDS SUMMARY | 2024-10-13 08:44 | XMS_ITS | Encounter Summary ---
Author Organization [facility] Address [address] [place] [address] Care Team Providers Care Back Digger Operator Name Role Phone Unallocated, Noms Provider Primary Care Provi emmanuel Encounter Details Date Type Department Care Team (Late st Contact Info) Description 02/11/2024 Abstract [facility] [address] [place] [id number] Camacho Hernandez DO [address] [place], [facility] Social History Tobacco Use Types Packs/Day Years [...] Office Visit [facility] [address] [place] [address] aCmacho Hernandez, [address] [place] [address] documented as of this encounter Goals Goal Patient Goal Type Associated Problems Recent Progress Patient-Stated? Author Reminders Care Plan OB Reminders No Open Scheduling, Background documented as of this encounter Visit Diagnoses Not on filedocumented in this encounter Additional Health Concerns Active Problems Noted Date Diagnosed Date OB Reminders 09/02/2022 documented as of this encounter Care Teams Back Digger Operator Relationship Specialty Start Date End Date Unallocated, Noms Provider, [place] [address] PCP - General 06/29/22 documented as of this encounter
--- OUTSIDE RECORDS SUMMARY | 2024-10-13 08:45 | XMS_ITS | Encounter Summary ---
Author Organization [facility] tem Address [id number] [address] [place] [address] Care Team Providers Care Brokerage Clerk Name Role Phone Martin Chapman MD Primary Care Provider [phone] Encounter Details Date Type Department Care Team (Late st Contact Info) Description 06/28/2024 Orders Only [facility] [address] [place] [id number] Zbigniew Gonzalez, BILLY Social History Tobacco Use Types Packs/Day Years [...] on file documented as of this encounter Functional Status documented as of this encounter Plan of Treatment Not on file documented as of this encounter Visit Diagnoses Not on filedocumented in this encounter Care Teams Brokerage Clerk Relationship Specialty Start Date End Date Martin Chapman MD [address] [place] [address] PCP - General Family Medicine 02/24/18 documented as of this encounter
[2024-10-13 08:47] LABS: Hematocrit 38.3 % (36.0-48.0); Hemoglobin 13.1 g/dL (12.0-16.0); Immature Granulocytes Abs Auto 0.02 10^3/uL (0.00-0.03); Immature Granulocytes Pct Auto 0.3 % (0.0-0.5); Lymphocytes Absolute Auto 1.9 10^3/uL (1.2-3.8); Mean Corpuscular HGB Conc 34.2 g/dL (29.9-35.2); Mean Corpuscular Hemoglobin 27.9 pg (26.7-34.0); Mean Corpuscular Volume 81.5 fL (81.0-99.0); Platelet Count 233 10^3/uL (150-450); Red Blood Count 4.70 10^6/uL (4.20-5.40); White Blood Count 7.6 10^3/uL (4.0-11.0)
--- OUTSIDE RECORDS SUMMARY | 2024-10-13 08:48 | XMS_ITS | CCD ---
Author Organization [facility] Care Team Providers Care Emergency Medicine Name Role Phone EBWANDA, SHARLA Admitting Unavailable EBWANDA SHARLA Attending Unavailable OBDULIA ONEIL Referring Unavailable OBDULIA ONEIL Primary Care Unavailable [place] Procedure Practitioner Unavailab SHARLA Singh Surgeon Unavailable [place] Procedure Practitioner Unavailab AREN Ferguson Surgeon Unavailable DO Obdulia Oneil Primary Care Provider DO Radha Molina Attending Provider [phone] MD Jennie Smith Admit Provider [phone] MD Jennie Smith Attending Provider Spasic, VIDEO SOFTWARE ENGINEER-C Nataly Torres Attending Provider Spasic, VIDEO SOFTWARE ENGINEER-C Nataly Torres Primary Care Provider [phone] DO Marcello Hudson Attending Provider [phone] CORRINA DHALIWAL Attending Unavailable CORRINA DHALIWAL [...] NONE LISTED Primary Care Unavaila ble Spasic, VIDEO SOFTWARE ENGINEER-C Nataly E Primary Care Provider DO Mary Kay Cantu Attending Provider MD Jennie Smith Attending Provider CADE Ortiz Emergency Provider Spasic, VIDEO SOFTWARE ENGINEER-C Nataly E Attending Provider [facility] Primary Care Prov ider DO Radha Molina Attending Provider Spasic, VIDEO SOFTWARE ENGINEER-C Nataly E Primary Care Provider DO Mary Kay Cantu Attending Provider MD Jennie Smith Attending Provider CADE Ortiz Emergency Provider [phone] Spasic, VIDEO SOFTWARE ENGINEER-C Nataly E Attending Provider [facility] Primary Care Prov ider DO Radha Molina Attending Provider NO FAMILY, PHYSICIAN Primary Care Provider Unava ilable MD Ede Way Admit Provider MD Ede Way Attending Provider Spasic, VIDEO SOFTWARE ENGINEER-C Nataly E Primary Care Provider DO Mary Kay Cantu Attending Provider Spasic, VIDEO SOFTWARE ENGINEER-C Nataly E Attending Provider DO Radha Molina Attending Provider [facility] Primary Care Prov ider Spasic, VIDEO SOFTWARE ENGINEER-C Nataly E Attending Provider Spasic, VIDEO SOFTWARE ENGINEER-C Nataly E Primary Care Provider [phone] DO Carmelo Vinson Emergency Provider RANDALL Leon Emergency Provider Spasic, VIDEO SOFTWARE ENGINEER-C Nataly E Referring Provider CADE Arceo Attending Provider Unallocated , Noms Provider Primary Care Provi emmanuel Tai Chapman MD Primary Care Provider [phone] Tai Chapman MD Primary Care Provider [phone] NI CARROLL Attending Unavailable MARY, CAMACHO R Referring Unavailable CHAPMAN, TAI Sommer Primary Care Unavailable MARY, CAMACHO R Referring Unavailable CHAPMAN, TAI Sommer Primary Care Unavailable NI CARROLL Attending Unavailable MARY, CAMACHO R Referring Unavailable CHAPMAN, TAI Sommer Primary Care Unavailable SUMEET MOORE Admitting Unavailable SUMEET MOORE Attending Unavailable ERA HUNT Referring Unavailable CHAPMAN, TAI Sommer Primary Care Unavailable NI CARROLL Consulting Unavailable [facility] Consulti ng Unavailable CHAPMAN, TAI Sommer Primary Care Unavailable MARY, CAMACHO R Referring Unavailable CHAPMAN, TAI Sommer Referring Unavailable CHAPMAN, TAI Sommer Primary Care Unavailable MARY, CAMACHO Attending Unavailable KMI KHOURY Attending Unavailable MARY, CAMACHO Attending Unavailable TRUDY COOL Attending Unavailable RIYA ALEXANDER Referring Unavailable MARY, CAMACHO Attending Unavailable CATHERINERIYA YOUSSEF Attending Unavailable IRAIDA, KIM Attending Unavailable Spasic VIDEO SOFTWARE ENGINEER-C, Nataly Torres Attending Provider Nataly Toure E [...] Unavailable Spasic, Nataly E Primary Care Unavailable [facility] Primary Care Unavaila ble Spasic, Nataly E Admitting Unavailable Nataly Toure Attending Unavailable Allergies Allergy Classification Reported Allergen(s) Allergy Type Date of Onset Reaction(s) Facility (1 source) [address]6325,00 Drug allergy (disorder) 07-01-2012 [facility] Repository Medications Current Medications Medication Drug [...] antepartum, gestational diabetes method of control unspecified ([facility]) , Elevated glucose tolerance test 1 kit [...] 2022 12:21pm take 1 capsule by [facility] twenty-four hours in [...] hours as needed for pain Hydrocodone-Acetam inophen (Ogema) 5-325 mg tablet Discontinued 2 TAB PO [...] 20, 2017 1:01pm 168 hr ethinyl estradiol 0.86430 mg/hr / norelgestromin 0.45322 mg/hr transdermal system (20 sources) Progestin, Estrogen [...] 20, 2022 12:00am February 13, 2023 7:43pm [place]-3 Fatty Acids-Fish Oil (20 sources) Start: 06-23-2022 End: 11-19-2022 take 1 capsule by mouth once daily [place]-3 Fatty Acids-Fish Oil Discontinued 1 CAP PO Daily June 22, 2022 11:00pm November 19, 2022 11:22am Start: 06-23-2022 End: 11-19-2022 take 1 capsule by mouth once daily [place]-3 Fatty Acids-Fish Oil Discontinued 1 CAP PO Daily June 23, 2022 12:00am November 19, 2022 12:22pm Start: 06-23-2022 take 1 capsule by mo [facility] once daily [place]3 Fatty Acids-Fish Oil Active 1 CAP PO Daily June 23, 2022 12:00am [place]-[facility] Fatty Acids-Fish Oil 300-1,000 mg capsule (1 source) Start: 06-23-2022 End: 11-19-2022 take 1 capsule by mouth once daily [place]-3 Fatty Acids-Fish Oil 300-1,000 mg capsule Discontinued [...] 07, 2017 12:00am November 12, 2017 12:01am Mdbbrwbj-Trx-Bj-Fa () 1 mg Tablet (20 sources) Start: 11-19-2022 End: 02-13-2023 take 1 tablet by mouth once daily Wxdgmukc-Dlh-Ii-Fa () 1 mg Tablet Discontinued 1 TAB PO Daily November 19, 2022 12:00am February 13, 2023 7:43pm Start: 11-19-2022 End: 02-13-2023 take 1 tablet by mouth once daily Ojzpqycu-Zbe-Nq-Fa () 1 mg Tablet Discontinued 1 TAB PO Daily November 18, 2022 11:00pm February 13, 2023 6:43pm Start: 11-19-2022 take 1 tablet by long th once daily Wvlkrczn-Sbn-Lk-Fa () 1 mg Tablet Active 1 TAB PO Daily November 18, 2022 11:00pm Start: 11-19-2022 take 1 tablet by long th once daily Nxginajg-Tgo-Ug-Fa () 1 mg Tablet Active 1 TAB [...] ALT [Catalytic activity/Vol] 14 U/L Normal 7-52 [facility] Comment on above: Order Comment: Reaso n for Exam Fatty liver Reason for Exam Iron deficiency Reason for Exam High blood triglycerides Reason for Exam Hypothyroidism, unspecified type Performed By: #### T SH3 wRFLX, LIPID, CBC, FE and TIBC, CMP, SERGIO ####[facility] [id number] [place] [id number] [facility] Albumin [Mass/volume] in Ser um or Plasma by Bromocresol green (BCG) dye binding methoOrdered By: Nataly Toure on 08-17-2024 Albumin BCG dye [Mass/Vol] 4.3 g/dL 3.5-5.7 [facility] Alkaline phosphatase [Enzyma tic activity/volume] in Serum or PlasmaOrdered By: Nataly Toure on 08-17-2024 ALP [Catalytic activity/Vol] 84 U/L Normal 34-104 [facility] Comment on above: Order Comment: Reaso n for Exam Fatty liver Reason for Exam Iron deficiency Reason for Exam High blood triglycerides Reason for Exam Hypothyroidism, unspecified type Performed By: #### T SH3 wRFLX, LIPID, CBC, FE and TIBC, CMP, SERGIO ####[place] [place] [address] [facility] Aspartate aminotransferase [ Enzymatic activity/volume] in Serum or PlasmaOrdered By: Nataly Toure on 08-17-2024 AST [Catalytic activity/Vol] 12 U/L Low 13-39 [facility] Comment on above: Order Comment: Reaso n for Exam Fatty liver Reason for Exam Iron deficiency Reason for Exam High blood triglycerides Reason for Exam Hypothyroidism, unspecified type Performed By: #### T SH3 wRFLX, LIPID, CBC, FE and TIBC, CMP, SERGIO ####[address] [address] [place] [id number] [facility] Basophils [#/volume] in Bloo d by Automated countOrdered By: Nataly Toure on 08-17-2024 Basophils (Bld) [#/Vol] 0.0 10*3/uL Normal 0.0-0.2 [facility] Comment on above: Order Comment: Reaso n for Exam Fatty liver Result Comment: PERF ORMED BY: [facility] [address] [place] [address] PATHOLOGIST TELEVISION SERVICER RAUL COX M.D. Performed By: #### T SH3 wRFLX, LIPID, CBC, FE and TIBC, CMP, SERGIO ####[address] [address] [place] [id number] [facility] Basophils/100 leukocytes in Blood by Automated countOrdered By: Nataly Toure on 08-17-2024 Basophils/100 WBC (Bld) 0.5 % Normal . [facility] Comment on above: Order Comment: Reaso n for Exam Fatty liver Performed By: #### T SH3 wRFLX, LIPID, CBC, FE and TIBC, CMP, SERGIO ####[address] [address] [place] [id number] [facility] Bilirubin.total [Mass/volume ] in Serum or PlasmaOrdered By: Nataly Toure on 08-17-2024 Bilirubin [Mass/Vol] 0.5 mg/dL Normal 0.3-1.0 [facility] Comment on above: Order Comment: Reaso n for Exam Fatty liver Reason for Exam Iron deficiency Reason for Exam High blood triglycerides Reason for Exam Hypothyroidism, unspecified type Performed By: #### T SH3 wRFLX, LIPID, CBC, FE and TIBC, CMP, SERGIO ####[address] [place] [address] [facility] Calcium [Mass/volume] in Ser um or PlasmaOrdered By: Nataly Toure on 08-17-2024 Calcium [Mass/Vol] 9.3 mg/dL Normal 8.6-10.3 [facility] Comment on above: Order Comment: Reaso n for Exam Fatty liver Reason for Exam Iron deficiency Reason for Exam High blood triglycerides Reason for Exam Hypothyroidism, unspecified type Performed By: #### T SH3 wRFLX, LIPID, CBC, FE and TIBC, CMP, SERGIO ####[address] [address] [facility] Carbon dioxide, total [Moles /volume] in Serum or PlasmaOrdered By: Nataly Toure on 08-17-2024 CO2 [Moles/Vol] 25.5 mmol/L Normal 21.0-31.0 [facility] Comment on above: Order Comment: Reaso n for Exam Fatty liver Reason for Exam Iron deficiency Reason for Exam High blood triglycerides Reason for Exam Hypothyroidism, unspecified type Performed By: #### T SH3 wRFLX, LIPID, CBC, FE and TIBC, CMP, SERGIO ####[address] [address] [place] Chloride [Moles/volume] in S rosa or PlasmaOrdered By: Nataly Toure on 08-17-2024 Chloride [Moles/Vol] 106 mmol/L Normal 98-107 [facility] Comment on above: Order Comment: Reaso n for Exam Fatty liver Reason for Exam Iron deficiency Reason for Exam High blood triglycerides Reason for Exam Hypothyroidism, unspecified type Performed By: #### T SH3 wRFLX, LIPID, CBC, FE and TIBC, CMP, SERGIO ####[address] [address] [facility] Cholesterol [Mass/volume] in Serum or PlasmaOrdered By: Nataly Toure on 08-17-2024 Cholesterol [Mass/Vol] 169 mg/dL Normal 140-[address] [facility] Comment on above: Chol less than [...] LIPID, CBC, FE and TIBC, CMP, SERGIO ####[facility] [id number] [place] [address] [place] Cholesterol in HDL [Mass/vol ume] in Serum or PlasmaOrdered By: Nataly Toure on 08-17-2024 Cholesterol in HDL [Mass/Vol] 38 mg/dL Normal 23-92 [facility] Comment on above: HDL CHOL [...] LIPID, CBC, FE and TIBC, CMP, SERGIO ####[facility] [id number] [place] [address] [place] Cholesterol in LDL Calc [Mas s/Vol]Ordered By: Nataly Toure on 08-17-2024 Cholesterol in LDL [Mass/Vol] 81 mg/dL 0-100 [facility] Comment on above: LDL ATP III CLASSIFI CATIONLDL less than 100 mg/dL OptimalLDL 100-129 mg/dL Near or above optimalLDL 130-159 mg/dL Borderline highLDL 160-189 mg/dL HighLDL greater than 189 mg/dL Very high Cholesterol in VLDL Calc [Ma ss/Vol]Ordered By: Nataly Toure on 08-17-2024 Cholesterol in VLDL [Mass/Vol] 50 mg/dL [facility] Complete Blood Count Auto Di ffon 08-17-2024 Mean Corpuscular HGB Conc 33.3 g/dL Normal 32.0-35.0 [facility] Comment on above: Order Comment: Reaso n for Exam Fatty liver Performed By: #### T SH3 wRFLX, LIPID, CBC, FE and TIBC, CMP, SERGIO ####[address] NRBC% 0.1 /100{WBC} Normal 0-0.5 [facility] Comment on above: Order Comment: Reaso n for Exam Fatty liver Performed By: #### T SH3 wRFLX, LIPID, CBC, FE and TIBC, CMP, SERGIO ####[address] White Blood Count 7.4 [CFU]/mL Normal 3.8-11.6 [facility] Comment on above: Order Comment: Reaso n for Exam Fatty liver Performed By: #### T SH3 wRFLX, LIPID, CBC, FE and TIBC, CMP, SERGIO ####[address] Comprehensive Metabolic Pane marco 08-17-2024 Albumin [Mass/Vol] 4.3 g/dL Normal 3.5-5.7 [facility] Comment on above: Order Comment: Reaso n for Exam Fatty liver Reason for Exam Iron deficiency Reason for Exam High blood triglycerides Reason for Exam Hypothyroidism, unspecified type Performed By: #### T SH3 wRFLX, LIPID, CBC, FE and TIBC, CMP, SERGIO ####[address] GFR/1.73 sq M.predicted MDRD (S/P/Bld) [Vol rate/Area] mL/min/{1.73_m2} Normal [facility] Comment on above: Order Comment: Reaso n for Exam Fatty liver Reason for Exam Iron deficiency Reason for Exam High blood triglycerides Reason for Exam Hypothyroidism, unspecified type Performed By: #### T SH3 wRFLX, LIPID, CBC, FE and TIBC, CMP, SERGIO ####[address] Creatinine [Mass/volume] in Serum or PlasmaOrdered By: Nataly Toure on 08-17-2024 Creatinine [Mass/Vol] 0.68 mg/dL Normal 0.60-1.20 [facility] Comment on above: Order Comment: Reaso n for Exam Fatty liver Reason for Exam Iron deficiency Reason for Exam High blood triglycerides Reason for Exam Hypothyroidism, unspecified type Performed By: #### T SH3 wRFLX, LIPID, CBC, FE and TIBC, CMP, SERGIO ####[address] Eosinophils [#/volume] in Bl ood by Automated countOrdered By: Nataly Toure on 08-17-2024 Eosinophils (Bld) [#/Vol] 0.1 10*3/uL Normal 0.0-0.45 [facility] Comment on above: Order Comment: Reaso n for Exam Fatty liver Performed By: #### T SH3 wRFLX, LIPID, CBC, FE and TIBC, CMP, SERGIO ####[address] Eosinophils/100 leukocytes i n Blood by Automated countOrdered By: Nataly Toure on 08-17-2024 Eosinophils/100 WBC (Bld) 1.2 % Normal . [facility] Comment on above: Order Comment: Reaso n for Exam Fatty liver Performed By: #### T SH3 wRFLX, LIPID, CBC, FE and TIBC, CMP, SERGIO ####[address] Erythrocyte distribution wid th [Ratio] by Automated countOrdered By: Nataly Toure on 08-17-2024 Erythrocyte distribution width (RBC) [Ratio] 14.5 % Normal 11.9-15.3 [facility] Comment on above: Order Comment: Reaso n for Exam Fatty liver Performed By: #### T SH3 wRFLX, LIPID, CBC, FE and TIBC, CMP, SERGIO ####[place] [id number] [facility] Erythrocytes [#/volume] in B lood by Automated countOrdered By: Nataly Toure on 08-17-2024 RBC (Bld) [#/Vol] 4.90 10*6/uL Normal 3.60-5.00 [facility] Comment on above: Order Comment: Reaso n for Exam Fatty liver Performed By: #### T SH3 wRFLX, LIPID, CBC, FE and TIBC, CMP, SERGIO ####[facility] [place] [address] [facility] Ferritin [Mass/volume] in Se rum or PlasmaOrdered By: Nataly Toure on 08-17-2024 Ferritin [Mass/Vol] 41.5 ng/mL Normal 11.0-306.8 [facility] Comment on above: Order Comment: Reaso n for Exam Fatty liver Reason for Exam Iron deficiency Reason for Exam High blood triglycerides Reason for Exam Hypothyroidism, unspecified type Performed By: #### T SH3 wRFLX, LIPID, CBC, FE and TIBC, CMP, SERGIO ####[address] [place] [address] [facility] Glucose [Mass/volume] in Ser um or PlasmaOrdered By: Nataly Toure on 08-17-2024 Glucose [Mass/Vol] 132 mg/dL High 70-100 [facility] Comment on above: ADA recommended refe [...] for Exam Hypothyroidism, unspecified type Result Comment: [place] om Glucose Reference Range is dependent on time and content of last meal. Glucose of more than 200 mg/dL in a nonstressed, ambulatory subject supports the diagnosis of Diabetes Mellitus. ADA recommended reference range Performed By: #### T SH3 wRFLX, LIPID, CBC, FE and TIBC, CMP, SERGIO ####[facility] [place] [address] [facility] Hematocrit [Volume Fraction] of Blood by Automated countOrdered By: Nataly Toure on 08-17-2024 Hematocrit (Bld) [Volume fraction] 39.2 % Normal 34.0-46.4 [facility] Comment on above: Order Comment: Reaso n for Exam Fatty liver Performed By: #### T SH3 wRFLX, LIPID, CBC, FE and TIBC, CMP, SERGIO ####[address] [place] [address] [facility] Hemoglobin [Mass/volume] in BloodOrdered By: Nataly Toure on 08-17-2024 Hemoglobin (Bld) [Mass/Vol] 13.1 g/dL Normal 11.8-15.4 [facility] Comment on above: Order Comment: Reaso n for Exam Fatty liver Performed By: #### T SH3 wRFLX, LIPID, CBC, FE and TIBC, CMP, SERGIO ####[address] [place] [address] [facility] Iron [Mass/volume] in Serum or PlasmaOrdered By: Nataly Toure on 08-17-2024 Iron [Mass/Vol] 57 ug/dL Normal 50-212 [facility] Comment on above: Order Comment: Reaso n for Exam Fatty liver Reason for Exam Iron deficiency Reason for Exam High blood triglycerides Reason for Exam Hypothyroidism, unspecified type Performed By: #### T SH3 wRFLX, LIPID, CBC, FE and TIBC, CMP, SERGIO ####[address] [address] [facility] Iron and TIBC Profileon % Iron Saturation 16.2 % Low 20-50 [facility] Comment on above: Order Comment: Reaso n for Exam Fatty liver Reason for Exam Iron deficiency Reason for Exam High blood triglycerides Reason for Exam Hypothyroidism, unspecified type Performed By: #### T SH3 wRFLX, LIPID, CBC, FE and TIBC, CMP, SERGIO ####[address] [address] [facility] Total Iron Binding Capacity 351 ug/dL Normal 255-450 [facility] Comment on above: Order Comment: Reaso n for Exam Fatty liver Reason for Exam Iron deficiency Reason for Exam High blood triglycerides Reason for Exam Hypothyroidism, unspecified type Performed By: #### T SH3 wRFLX, LIPID, CBC, FE and TIBC, CMP, SERGIO ####[address] [address] [place] Leukocytes [#/volume] correc kee for nucleated erythrocytes in Blood by Automated counOrdered By: Nataly Toure on 08-17-2024 WBC corrected for nucl RBC Auto (Bld) [#/Vol] 7.4 10*3/uL 3.8-11.6 [facility] Leukocytes [#/volume] in Blo od by Automated countOrdered By: Nataly Toure on 08-17-2024 WBC (Bld) [#/Vol] 7.4 10*3/uL Normal 3.8-11.6 [facility] Comment on above: Order Comment: Reaso n for Exam Fatty liver Performed By: #### T SH3 wRFLX, LIPID, CBC, FE and TIBC, CMP, SERGIO ####[facility] [place] [id number] [facility] Lipid Panelon 08-17-2024 LDL Cholesterol,Calculated 81 mg/dL Normal 0-100 [facility] Comment on above: [...] LIPID, CBC, FE and TIBC, CMP, SERGIO ####[facility] Triglyceride w/Reflex 250 mg/dL High 0-149 [facility] Comment on above: [...] LIPID, CBC, FE and TIBC, CMP, SERGIO ####[address] VLDL CHOLESTEROL 50 mg/dL Normal [facility] Comment on above: Order Comment: Reaso n for Exam Fatty liver Reason for Exam Iron deficiency Reason for Exam High blood triglycerides Reason for Exam Hypothyroidism, unspecified type Performed By: #### T SH3 wRFLX, LIPID, CBC, FE and TIBC, CMP, SERGIO ####[address] Lymphocytes [#/volume] in Bl ood by Automated countOrdered By: Nataly Toure on 08-17-2024 Lymphocytes (Bld) [#/Vol] 2.1 10*3/uL Normal 1.00-4.8 [facility] Comment on above: Order Comment: Reaso n for Exam Fatty liver Performed By: #### T SH3 wRFLX, LIPID, CBC, FE and TIBC, CMP, SERGIO ####[address] Lymphocytes/100 leukocytes i n Blood by Automated countOrdered By: Nataly Toure on 08-17-2024 Lymphocytes/100 WBC (Bld) 28.3 % Normal . [facility] Comment on above: Order Comment: Reaso n for Exam Fatty liver Performed By: #### T SH3 wRFLX, LIPID, CBC, FE and TIBC, CMP, SERGIO ####[address] MCH [Entitic mass] by Automa kee countOrdered By: Nataly Toure on 08-17-2024 MCH (RBC) [Entitic mass] 26.6 pg Normal 24.7-34.3 [facility] Comment on above: Order Comment: Reaso n for Exam Fatty liver Performed By: #### T SH3 wRFLX, LIPID, CBC, FE and TIBC, CMP, SERGIO ####[address] MCHC Auto (RBC) [Mass/Vol]Or dered By: Nataly Toure on 08-17-2024 MCHC (RBC) [Mass/Vol] 33.3 g/dL 32.0-35.0 [facility] MCV [Entitic volume] by Auto mated countOrdered By: Nataly Toure on 08-17-2024 MCV (RBC) [Entitic vol] 79.9 fL Low 80-100 [facility] Comment on above: Order Comment: Reaso n for Exam Fatty liver Performed By: #### T SH3 wRFLX, LIPID, CBC, FE and TIBC, CMP, SERGIO ####[address] [place] [id number] [facility] Monocytes [#/volume] in Bloo d by Automated countOrdered By: Nataly Toure on 08-17-2024 Monocytes (Bld) [#/Vol] 0.5 10*3/uL Normal 0.0-0.8 [facility] Comment on above: Order Comment: Reaso n for Exam Fatty liver Performed By: #### T SH3 wRFLX, LIPID, CBC, FE and TIBC, CMP, SERGIO ####[place] [id number] [place] Monocytes/100 leukocytes in Blood by Automated countOrdered By: Nataly Toure on 08-17-2024 Monocytes/100 WBC (Bld) 6.2 % Normal . [facility] Comment on above: Order Comment: Reaso n for Exam Fatty liver Performed By: #### T SH3 wRFLX, LIPID, CBC, FE and TIBC, CMP, SERGIO ####[place] [id number] [facility] Neutrophils [#/volume] in Bl ood by Automated countOrdered By: Nataly Toure on 08-17-2024 Neutrophils (Bld) [#/Vol] 4.7 10*3/uL Normal 1.8-7.7 [facility] Comment on above: Order Comment: Reaso n for Exam Fatty liver Performed By: #### T SH3 wRFLX, LIPID, CBC, FE and TIBC, CMP, SERGIO ####[address] [address] [place] Neutrophils/100 leukocytes i n Blood by Automated countOrdered By: Nataly Toure on 08-17-2024 Neutrophils/100 WBC (Bld) 63.8 % Normal . [facility] Comment on above: Order Comment: Reaso n for Exam Fatty liver Performed By: #### T SH3 wRFLX, LIPID, CBC, FE and TIBC, CMP, SERGIO ####[place] [address] No Panel InformationOrdered By: Nataly Toure on 08-17-2024 Estimated GFR (CKD-EPI) > 60.0 mL/Min [facility] Creatinine Clearance (Chem N/A [facility] Nucleated erythrocytes [Pres ence] in Blood by Automated countOrdered By: Nataly Toure on 08-17-2024 Nucleated RBC Auto Ql (Bld) 0.1 /100{WBC} 0-0.5 [facility] Platelet mean volume [Entiti c volume] in Blood by Automated countOrdered By: Nataly Toure on 08-17-2024 Platelet mean volume (Bld) [Entitic vol] 9.1 fL Normal 6.3-10.7 [facility] Comment on above: Order Comment: Reaso n for Exam Fatty liver Performed By: #### T SH3 wRFLX, LIPID, CBC, FE and TIBC, CMP, SERGIO ####[place] [id number] Platelets [#/volume] in Bloo d by Automated countOrdered By: Nataly Toure on 08-17-2024 Platelets (Bld) [#/Vol] 234 10*3/uL Normal 150-450 [facility] Comment on above: Order Comment: Reaso n for Exam Fatty liver Performed By: #### T SH3 wRFLX, LIPID, CBC, FE and TIBC, CMP, SERGIO ####[place] [id number] Potassium [Moles/volume] in Serum or PlasmaOrdered By: Nataly Toure on 08-17-2024 Potassium [Moles/Vol] 4.3 mmol/L Normal 3.5-5.1 [facility] Comment on above: Order Comment: Reaso n for Exam Fatty liver Reason for Exam Iron deficiency Reason for Exam High blood triglycerides Reason for Exam Hypothyroidism, unspecified type Performed By: #### T SH3 wRFLX, LIPID, CBC, FE and TIBC, CMP, SERGIO ####[facility] [id number] [place] [address] [facility] Protein [Mass/volume] in Ser um or PlasmaOrdered By: Nataly Toure on 08-17-2024 Protein [Mass/Vol] 7.2 g/dL Normal 6.4-8.9 [facility] Comment on above: Order Comment: Reaso n for Exam Fatty liver Reason for Exam Iron deficiency Reason for Exam High blood triglycerides Reason for Exam Hypothyroidism, unspecified type Performed By: #### T SH3 wRFLX, LIPID, CBC, FE and TIBC, CMP, SERGIO ####[facility] [id number] [place] [id number] [facility] Serum globulin measurement b y calculation (mass/volume)Ordered By: Nataly Toure on 08-17-2024 Globulin (S) [Mass/Vol] 2.9 g/dL Normal [facility] Comment on above: Order Comment: Reaso n for Exam Fatty liver Reason for Exam Iron deficiency Reason for Exam High blood triglycerides Reason for Exam Hypothyroidism, unspecified type Performed By: #### T SH3 wRFLX, LIPID, CBC, FE and TIBC, CMP, SERGIO ####[facility] [id number] [id number] [facility] Serum or plasma albumin/glob ulin mass ratioOrdered By: Nataly Toure on 08-17-2024 Albumin/Globulin [Mass ratio] 1.5 {ratio} Normal [facility] Comment on above: Order Comment: Reaso n for Exam Fatty liver Reason for Exam Iron deficiency Reason for Exam High blood triglycerides Reason for Exam Hypothyroidism, unspecified type Performed By: #### T SH3 wRFLX, LIPID, CBC, FE and TIBC, CMP, SERGIO ####[facility] [id number] [id number] [facility] Serum or plasma anion gap de terminationOrdered By: Nataly Toure on 08-17-2024 Anion gap [Moles/Vol] 10.8 mmol/L Normal 6.0-15.[address] [facility] Comment on above: Order Comment: Reaso n for Exam Fatty liver Reason for Exam Iron deficiency Reason for Exam High blood triglycerides Reason for Exam Hypothyroidism, unspecified type Performed By: #### T SH3 wRFLX, LIPID, CBC, FE and TIBC, CMP, SERGIO ####[facility] [id number] [id number] [facility] Serum or plasma iron binding capacity measurement (mass/volume)Ordered By: Nataly Toure on 08-17-2024 Iron binding capacity [Mass/Vol] 351 ug/dL 255-450 [facility] Serum or plasma iron saturat ion measurement (mass fraction)Ordered By: Nataly Toure on 08-17-2024 Iron saturation [Mass fraction] 16.2 % Low 20-50 [facility] Serum or plasma total choles terol/high density lipoprotein (HDL) cholesterol mass ratOrdered By: Nataly Toure on 08-17-2024 Cholesterol.total/Chol esterol in HDL [Mass ratio] 4.4 {ratio} Normal <5.0 [facility] Comment on above: Order Comment: Reaso n for Exam Fatty liver Reason for Exam Iron deficiency Reason for Exam High blood triglycerides Reason for Exam Hypothyroidism, unspecified type Performed By: #### T SH3 wRFLX, LIPID, CBC, FE and TIBC, CMP, SERGIO ####[facility] [id number] [facility] Sodium [Moles/volume] in Ser um or PlasmaOrdered By: Nataly Toure on 08-17-2024 Sodium [Moles/Vol] 138 mmol/L Normal 136-145 [facility] Comment on above: Order Comment: Reaso n for Exam Fatty liver Reason for Exam Iron deficiency Reason for Exam High blood triglycerides Reason for Exam Hypothyroidism, unspecified type Performed By: #### T SH3 wRFLX, LIPID, CBC, FE and TIBC, CMP, SERGIO ####[facility] [id number] [id number] [facility] Thyroid Stim Hormone w/Rflxo n 08-17-2024 Thyroid Stim Hormone w/Rflx 2.50 u[iU]/mL Normal 0.45-5.33 [facility] Comment on above: Order Comment: Reaso n for Exam Fatty liver Reason for Exam Iron deficiency Reason for Exam High blood triglycerides Reason for Exam Hypothyroidism, unspecified type Result Comment: PERF ORMED BY: [facility] [address] [id number] PATHOLOGIST TELEVISION SERVICER RAUL COX M.D. Performed By: #### T SH3 wRFLX, LIPID, CBC, FE and TIBC, CMP, SERGIO ####[facility] [place] [address] [facility] Thyrotropin [Units/volume] i n Serum or PlasmaOrdered By: Nataly Toure on 08-17-2024 TSH Qn 2.50 m[IU]/L 0.45-5.33 [facility] Transferrin [Mass/volume] in Serum or PlasmaOrdered By: Nataly Toure on 08-17-2024 Transferrin [Mass/Vol] 251 mg/dL Normal 203-[address] [facility] Comment on above: Order Comment: Reaso n for Exam Fatty liver Reason for Exam Iron deficiency Reason for Exam High blood triglycerides Reason for Exam Hypothyroidism, unspecified type Performed By: #### T SH3 wRFLX, LIPID, CBC, FE and TIBC, CMP, SERGIO ####[place] [id number] [place] [id number] [facility] Triglyceride [Mass/volume] i n Serum or PlasmaOrdered By: Nataly Toure on 08-17-2024 Triglyceride [Mass/Vol] 250 mg/dL High 0-149 [facility] Comment on above: TRIG ATP III CLASSIF ICATIONTRIG less than 150 mg/dL NormalTRIG 150-199 mg/dL Borderline highTRIG 200-500 mg/dL High TRIG greater than 500 mg/dL Very highStandard traceable to the Center for Disease Conrtrol and Prevention (CDC) test method. Urea nitrogen [Mass/volume] in Serum or PlasmaOrdered By: Nataly Toure on 08-17-2024 Urea nitrogen [Mass/Vol] 13 mg/dL Normal 7-25 [facility] Comment on above: Order Comment: Reaso n for Exam Fatty liver Reason for Exam Iron deficiency Reason for Exam High blood triglycerides Reason for Exam Hypothyroidism, unspecified type Performed By: #### T SH3 wRFLX, LIPID, CBC, FE and TIBC, CMP, SERGIO ####[place] [id number] [place] [id number] [facility] BEDSIDE GLUCOSEon 06-29-2024 Glucose [Mass/Vol] 149 mg/dL High 65-99 [facility] Comment on above: Performed By: #### B EDG #### [facility] ([facility]) [address] [place] [address] VIR Glucose [Mass/Vol] 156 mg/dL High 65-99 [facility] Comment on above: Performed By: #### B EDG #### [facility] ([facility]) [address] [facility] [address] VIR BLOOD GAS, ARTERIAL, CORDon 06-29-2024 %O2 SATURATION CORD ARTERIAL 10.0 Normal [facility] Comment on above: Performed By: #### B EDG #### [facility] ([facility]) [address] [facility] [address] VIR BASE,DEFICIT -4.0 mmol/L Low 0.0-2.0 [facility] Comment on above: Performed By: #### B EDG #### [facility] ([facility]) [address] [facility] [address] VIR PCO2 CORD ARTERIAL 59.8 mmHG Normal [facility] Comment on above: Performed By: #### B EDG #### [facility] ([facility]) [address] [place] [address] VIR PH CORD ARTERIAL 7.218 Normal [facility] Comment on above: Performed By: #### B EDG #### [facility] ([facility]) [address] [facility] [address] VIR PO2 CORD ARTERIAL 13 mmHG Normal [facility] Comment on above: Performed By: #### B EDG #### [facility] ([facility]) [address] [place] [address] VIR POC JEIMY'S TEST N/A Normal [facility] Comment on above: Performed By: #### B EDG #### [facility] ([facility]) [address] [place] [address] VIR SAMPLE SITE Art Cord Normal [facility] Comment on above: Performed By: #### B EDG #### [facility] ([facility]) [address] [place] [address] VIR SAMPLE TYPE UMBILICAL CORD Normal [facility] Comment on above: Performed By: #### B EDG #### [facility] ([facility]) [address] [place] [address] VIR SOURCE OF OXYGEN Room Air Normal [facility] Comment on above: Performed By: #### B EDG #### [facility] ([facility]) [address] [place] [address] VIR BLOOD GAS, VENOUS, CORDon BASE,DEFICIT -4.0 mmol/L Low 0.0-2.0 [facility] Comment on above: Performed By: #### C MP #### [facility]) [address] [place] [address] VIR HCO3 CORD VENOUS 22 mmol/L Normal [facility] Comment on above: Performed By: #### C MP #### [facility] ([facility]) [address] [place] [address] VIR Oxygen saturation in Blood 59.0 % Normal [facility] Comment on above: Performed By: #### C MP #### [facility] ([facility]) [address] [place] [address] VIR PCO2 CORD VENOUS 39.7 Normal [facility] Comment on above: Performed By: #### C MP #### [facility] ([facility]) [address] [place] [address] VIR PH CORD VENOUS 7.347 Normal [facility] Comment on above: Performed By: #### C MP #### [facility] ([facility]) [address] [place] [address] VIR PO2 CORD VENOUS 32 Normal 22-35 [facility] Comment on above: Performed By: #### C MP #### [facility] ([facility]) [address] [place] [address] VIR POC JEIMY'S TEST N/A Normal [facility] Comment on above: Performed By: #### C MP #### [facility]) [address] [place] [address] VIR SAMPLE SITE Arnel Cord Normal [facility] Comment on above: Performed By: #### C MP #### [facility]) [address] [place] [address] VIR SAMPLE TYPE UMBILICAL CORD Normal [facility] Comment on above: Performed By: #### C MP #### [facility] ([facility]) [address] [place] [address] VIR SOURCE OF OXYGEN Room Air Normal [facility] Comment on above: Performed By: #### C MP #### [facility]) [address] [place] [address] VIR APTTon 06-28-2024 aPTT Coag (Bld) [Time] 25 s Low 26-37 [facility] Comment on above: Performed By: #### P TT #### [facility] ([facility]) [address] [place] [address] VIR BEDSIDE GLUCOSEon 06-28-2024 Glucose [Mass/Vol] 152 mg/dL High 65-99 [facility] Comment on above: Performed By: #### B EDG #### [facility] ([facility]) [address] [place] [address] VIR Glucose [Mass/Vol] 125 mg/dL High [address] [place] [address] Comment on above: Performed By: #### B EDG #### [facility] ([facility]) [address] [place] [address] VIR Glucose [Mass/Vol] 146 mg/dL High 65-99 [facility] Comment on above: Performed By: #### B EDG #### [facility] ([facility]) [address] [place] [address] VIR CBC WITH AUTO DIFFERENTIALon 06-28-2024 BASOPHILS ABSOLUTE COUNT (10*3/UL) BY AUTOMATED COUNT 0.1 10*3/uL Normal 0.0-0.2 [facility] Comment on above: Performed By: #### C BCA #### [facility] ([facility]) [address] [place] [address] VIR BASOPHILS RELATIVE PERCENT BY AUTOMATED COUNT 0.5 % Normal [facility] Comment on above: Performed By: #### C BCA #### [facility] ([facility]) [address] [place] [address] VIR CELLAVISION DIFFERENTIAL TYPE AUTOMATED DIFFERENTIAL Normal [facility] Comment on above: Performed By: #### C BCA #### [facility] ([facility]) [address] [place] [address] VIR Eosinophils (Bld) [#/Vol] 0.0 10*3/uL Normal 0.0-0.4 [facility] Comment on above: Performed By: #### C BCA #### [facility]) [address] [place] [address] VIR EOSINOPHILS RELATIVE PERCENT BY AUTOMATED COUNT 0.0 % Normal [facility] Comment on above: Performed By: #### C BCA #### [facility]) [address] [place] [address] VIR Erythrocyte distribution width (RBC) [Ratio] 14.1 % Normal 11.5-15 [facility] Comment on above: Performed By: #### C BCA #### [facility] ([facility]) [address] [place] [address] VIR Hematocrit (Bld) [Volume fraction] 34.4 % Low 35-47 [facility] Comment on above: Performed By: #### C BCA #### [facility]) [address] [place] [address] VIR Hemoglobin (Bld) [Mass/Vol] 11.7 g/dL Normal 11.7-15.5 [facility] Comment on above: Performed By: #### C BCA #### [facility]) [address] [place] [address] VIR LYMPHOCYTES ABSOLUTE COUNT (10*3/UL) BY AUTOMATED COUNT 0.9 10*3/uL Low 1.0-3.5 [facility] Comment on above: Performed By: #### C BCA #### [facility]) [address] [place] [address] VIR LYMPHOCYTES RELATIVE PERCENT BY AUTOMATED COUNT 6.6 % Normal [facility] Comment on above: Performed By: #### C BCA #### [facility] ([facility]) [address] [place] [address] VIR MCH (RBC) [Entitic mass] 28.0 pg Normal 27-34 [facility] Comment on above: Performed By: #### C BCA #### [facility]) [address] [place] [address] VIR MCHC (RBC) [Mass/Vol] 34.0 g/dL Normal 32-36 [facility] Comment on above: Performed By: #### C BCA #### [facility]) [address] [place] [address] VIR MCV (RBC) [Entitic vol] 82 fL Normal 80-100 [facility] Comment on above: Performed By: #### C BCA #### [facility]) [address] [place] [address] VIR MONOCYTES ABSOLUTE COUNT (10*3/UL) BY AUTOMATED COUNT 0.3 10*3/uL Normal 0.0-0.9 [facility] Comment on above: Performed By: #### C BCA #### [facility]) [address] [place] [address] VIR MONOCYTES RELATIVE PERCENT BY AUTOMATED COUNT 2.3 % Normal [facility] Comment on above: Performed By: #### C BCA #### [facility]) [address] [place] [address] VIR NEUTROPHILS ABSOLUTE COUNT BY AUTOMATED COUNT 12.6 10*3/uL High 1.5-6.6 [facility] Comment on above: Performed By: #### C BCA #### [facility]) [address] [place] [address] VIR NEUTROPHILS RELATIVE PERCENT BY AUTOMATED COUNT 90.6 % Normal [facility] Comment on above: Performed By: #### C BCA #### [facility]) [address] [place] [address] VIR Platelet mean volume (Bld) [Entitic vol] 9.4 fL Normal 7-12 [facility] Comment on above: Performed By: #### C BCA #### [facility]) [address] [place] [address] VIR Platelets (Bld) [#/Vol] 195 10*3/uL Normal 150-450 [facility] Comment on above: Performed By: #### C BCA #### [facility]) [address] [place] [address] VIR RBC COUNT 4.18 X10E12/L Normal 3.8-5.2 [facility] Comment on above: Performed By: #### C BCA #### [facility]) [address] [place] [address] VIR WBC (Bld) [#/Vol] 13.9 10*3/uL High 4-11 [facility] Comment on above: Performed By: #### C BCA #### [facility]) [address] [place] [address] VIR CHLAMYDIA/GC BY PCR GLYNN SW ABon [...] are dependent on adequate specimen collection. Normal [facility] Comment on above: Performed By: #### B EDG #### [facility] ([facility]) [address] [place] [address] VIR COMPREHENSIVE METABOLIC PANE Marco 06-28-2024 Albumin [Mass/Vol] 3.3 g/dL Normal 3.2-5.3 [facility] Comment on above: Performed By: #### C MP #### [facility]) [address] [place] [address] VIR ALP [Catalytic activity/Vol] 89 U/L Normal 39-130 [facility] Comment on above: Performed By: #### C MP #### [facility]) [address] [place] [address] VIR ALT [Catalytic activity/Vol] 7 U/L Normal <=31 [facility] Comment on above: Performed By: #### C MP #### [facility]) [address] [place] [address] VIR Anion gap [Moles/Vol] 11 mmol/L Normal 5-15 [facility] Comment on above: Performed By: #### C MP #### [facility]) [address] [place] [address] VIR AST [Catalytic activity/Vol] 11 U/L Normal <=41 [facility] Comment on above: Performed By: #### C MP #### [facility]) [address] [place] [address] VIR Bilirubin [Mass/Vol] 0.4 mg/dL Normal 0.3-1.2 [facility] Comment on above: Performed By: #### C MP #### [facility]) [address] [place] [address] VIR Calcium [Mass/Vol] 7.9 mg/dL Low 8.5-10.5 [facility] Comment on above: Performed By: #### C MP #### [facility]) [address] [place] [address] VIR Chloride [Moles/Vol] 106 mmol/L Normal 98-109 [facility] Comment on above: Performed By: #### C MP #### [facility]) [address] [place] [address] VIR CO2 [Moles/Vol] 19 mmol/L Low 22-32 [facility] Comment on above: Performed By: #### C MP #### [facility]) [address] [place] [address] VIR Creatinine [Mass/Vol] 0.50 mg/dL Normal 0.40-1.00 [facility] Comment on above: Result Comment: METH OD TRACEABLE TO IDMS STANDARD Performed By: #### C MP #### [facility]) [address] [place] [address] VIR EGFR (CKD-EPI) NON-RACE DEPENDENT >^90 Normal >=60 [facility] Comment on above: Result Comment: Repo rted eGFR is based on the CKD-EPI 2020 equation that does not use a race coefficient. Performed By: #### C MP #### [facility]) [address] [place] [address] VIR Glucose [Mass/Vol] 124 mg/dL High 65-99 [facility] Comment on above: Performed By: #### C MP #### [facility]) [address] [place] [address] VIR Potassium [Moles/Vol] 3.8 mmol/L Normal 3.5-5.0 [facility] Comment on above: Performed By: #### C MP #### [facility]) [address] [place] [address] VIR Protein [Mass/Vol] 6.2 g/dL Normal 6.0-8.0 [facility] Comment on above: Performed By: #### C MP #### [facility]) [address] [place] [address] VIR Sodium [Moles/Vol] 136 mmol/L Normal 134-146 [facility] Comment on above: Performed By: #### C MP #### [facility]) [address] [place] [address] VIR Urea nitrogen [Mass/Vol] 8 mg/dL Normal 5-23 [facility] Comment on above: Performed By: #### C MP #### [facility]) [address] [place] [address] VIR DRUG SCREEN, URINEon 025 AMPHETAMINE/METHAMP Negative Normal Negative [facility] Comment on above: Result Comment: AMPH /METH screening cut off = 1000 ng/mL Performed By: #### D BURCH #### [facility]) [address] [place] [address] VIR BARBITURATES Negative Normal Negative [facility] Comment on above: Result Comment: Kelly iturates screening cut off value = 200 ng/mL Performed By: #### D BURCH #### [facility]) [address] [place] [address] VIR BENZODIAZEPINES Negative Normal Negative [facility] Comment on above: Result Comment: Joe odiazepines screening cut off value = 200 ng/mL Performed By: #### D BURCH #### [facility]) [address] [place] [address] VIR CANNABINOIDS Negative Normal Negative [facility] Comment on above: Result Comment: Ronald abinoids/THC screening cut off value = 50 ng/mL Performed By: #### D BURCH #### [facility]) [address] [place] [address] VIR COCAINE METABOLITE Negative Normal Negative [facility] Comment on above: Result Comment: Coca ine screening cut off value = 300 ng/mL Performed By: #### D BURCH #### [facility]) [address] [place] [address] VIR ECSTASY Negative Normal Negative [facility] Comment on above: Result Comment: Ecst asy screening cut off value = 500 ng/mL Performed By: #### D BURCH #### [facility] [address] [place] [address] VIR METHADONE Negative Normal Negative [facility] Comment on above: Result Comment: Meth adone screening cut off value = 300 ng/mL. Performed By: #### D BURCH #### [facility] [address] [place] [address] VIR OPIATES Negative Normal Negative [facility] Comment on above: Result Comment: Opia lalito screening cut off value = 300 ng/mL This test is used for the detection of codeine, hydrocodone (>1000 ng/mL), morphine and hydromorphone (>900 ng/mL) in urine. Performed By: #### D BURCH #### [facility] [address] [place] [address] VIR OXYCODONE Negative Normal Negative [facility] Comment on above: Result Comment: Oxyc odone screening cut off value = 300 ng/mL This test is used for the detection of oxycodone and oxymorphone in urine. Performed By: #### D BURCH #### [facility] [address] [place] [address] VIR PHENCYCLIDINE Negative Normal Negative [facility] Comment on above: Result Comment: Phen cyclidine screening cut off value = 25 ng/mL Performed By: #### D BURCH #### [facility]) [address] [place] [address] VIR FENTANYL, URINE QUALITATIVEo n 06-28-2024 FENTANYL, URINE QUALITATIVE UFEN FENTANYL, URINE QUALITATIVE Cancelled Normal [facility] FIBRINOGENon 06-28-2024 FIBRINOGEN 515 mg/dL High 190-480 [facility] Comment on above: Performed By: #### F IBR #### [facility]) [address] [place] [address] VIR MAGNESIUMon 06-28-2024 Magnesium [Mass/Vol] 4.5 mg/dL High 1.8-2.6 [facility] Comment on above: Performed By: #### B EDG #### [facility] [facility]) [address] [place] [address] VIR PROTIME AND INRon 06-28-2024 INR 1.0 Normal 0.9-1.2 [facility] Comment on above: Performed By: #### P INR #### [facility] ([facility]) [address] [place] [address] VIR PT Coag (PPP) [Time] 11.0 s Normal 9.8-13.2 [facility] Comment on above: Performed By: #### P INR #### [facility] ([facility]) [address] [place] [address] VIR STREP B SCREENon 06-28-2024 STREP B SCREEN CULTURE RESULTS NEGATIVE FOR GROUP B STREPTOCOCCUS BY NUCLEIC ACID AMPLIFICATION Normal [facility] Comment on above: Performed By: #### B EDG #### [facility] ([facility]) [address] [place] [address] VIR SYPHILIS TOTAL(UNKNOWN SYPHI LIS STATUS)on 06-28-2024 SYPHILIS TOTAL <^0.2 Normal <=0.8 [facility] Comment on above: Order Comment: NON R EACTIVE No serologic evidence of infection to Treponema pallidum. Repeat testing may be considered in patients with suspected acute or primary syphilis in 2 to 4 weeks. Performed By: #### S YP #### [facility]) [address] [place] [address] VIR TYPE AND SCREENon 06-28-2024 ABO_INTEP A Normal [facility] Comment on above: Performed By: #### T SC #### [facility] ([facility]) [address] [place] [address] VIR RH_INTEP Positive Normal [facility] Comment on above: Performed By: #### T SC #### [facility] ([facility]) [address] [place] [address] VIR URINALYSISon 06-28-2024 Bilirubin Ql (U) Negative Normal Negative [facility] Comment on above: Order Comment: Urine received without preservative. Delays in transport may affect results. Interpret with caution. A clinical correlation is recommended. Performed By: #### U A #### [facility]) [address] [place] [address] VIR BLOOD/HGB Moderate Abnormal Negative [facility] Comment on above: Order Comment: Urine received without preservative. Delays in transport may affect results. Interpret with caution. A clinical correlation is recommended. Performed By: #### U A #### [facility]) [address] [place] [address] VIR Color (U) Yellow Normal Yellow, Colorless [facility] Comment on above: Order Comment: Urine received without preservative. Delays in transport may affect results. Interpret with caution. A clinical correlation is recommended. Performed By: #### U A #### [facility]) [address] [place] [address] VIR Glucose Ql (U) Negative Normal Negative, 250 mg/dL, >1000 mg/dL [facility] Comment on above: Order Comment: Urine received without preservative. Delays in transport may affect results. Interpret with caution. A clinical correlation is recommended. Performed By: #### U A #### [facility]) [address] [place] [address] VIR Ketones Ql (U) 40 mg/dL Abnormal Negative [facility] Comment on above: Order Comment: Urine received without preservative. Delays in transport may affect results. Interpret with caution. A clinical correlation is recommended. Result Comment: This is a corrected result. Previous result was Negative on 06/28/2024 at 1521 EDT Performed By: #### U A #### [facility] [address] [place] [address] VIR Leukocyte esterase Test strip Ql (U) Negative Normal Negative [facility] Comment on above: Order Comment: Urine received without preservative. Delays in transport may affect results. Interpret with caution. A clinical correlation is recommended. Result Comment: This is a corrected result. Previous result was Large on 06/28/2024 at 1521 EDT Performed By: #### U A #### [facility] [address] [place] [address] VIR MUCOUS Present Abnormal None [facility] Comment on above: Order Comment: Urine received without preservative. Delays in transport may affect results. Interpret with caution. A clinical correlation is recommended. Performed By: #### U A #### [facility] [address] [place] [address] VIR Nitrite Ql (U) Negative Normal Negative [facility] Comment on above: Order Comment: Urine received without preservative. Delays in transport may affect results. Interpret with caution. A clinical correlation is recommended. Performed By: #### U A #### [facility]) [address] [place] [address] VIR PH,URINE 6.5 Normal 5.0-8.5 [facility] Comment on above: Order Comment: Urine received without preservative. Delays in transport may affect results. Interpret with caution. A clinical correlation is recommended. Result Comment: This is a corrected result. Previous result was 7.5 on 06/28/2024 at 1521 EDT Performed By: #### U A #### [facility]) [address] [place] [address] VIR Protein Ql (U) Negative Normal Negative [facility] Comment on above: Order Comment: Urine received without preservative. Delays in transport may affect results. Interpret with caution. A clinical correlation is recommended. Result Comment: This is a corrected result. Previous result was 100 mg/dL on 06/28/2024 at 1521 EDT Performed By: #### U A #### [facility]) [address] [place] [address] VIR R.B.CELLS 30 High 0-5 [facility] Comment on above: Order Comment: Urine received without preservative. Delays in transport may affect results. Interpret with caution. A clinical correlation is recommended. Performed By: #### U A #### [facility]) [address] [place] [address] VIR Specific gravity (U) [Rel density] 1.023 Normal 1.003-1.03 5 [facility] Comment on above: Order Comment: Urine received without preservative. Delays in transport may affect results. Interpret with caution. A clinical correlation is recommended. Result Comment: This is a corrected result. Previous result was 1.010 on 06/28/2024 at 1521 EDT Performed By: #### U A #### [facility] [address] [place] [address] VIR SQUAMOUS EPITHELIUM <^1 Normal 0-5 [facility] Comment on above: Order Comment: Urine received without preservative. Delays in transport may affect results. Interpret with caution. A clinical correlation is recommended. Result Comment: This is an appended report. These results have been appended to a previously final verified report. Performed By: #### U A #### [facility] [address] [place] [address] VIR TURBIDITY Clear Normal Clear [facility] Comment on above: Order Comment: Urine received without preservative. Delays in transport may affect results. Interpret with caution. A clinical correlation is recommended. Result Comment: This is a corrected result. Previous result was Cloudy on 06/28/2024 at 1521 EDT Performed By: #### U A #### [facility] [address] [place] [address] VIR UROBILINOGEN 0.2 eu/dL Normal 0.2 eu/dL, 1.0 eu/dL [facility] Comment on above: Order Comment: Urine received without preservative. Delays in transport may affect results. Interpret with caution. A clinical correlation is recommended. Performed By: #### U A #### [facility]) [address] [place] [address] VIR W.B.CELLS 1 Normal 0-5 [facility] Comment on above: Order Comment: Urine received without preservative. Delays in transport may affect results. Interpret with caution. A clinical correlation is recommended. Result Comment: This is a corrected result. Previous result was >100 on 06/28/2024 at 1521 EDT Performed By: #### U A #### [facility]) [address] [place] [address] VIR URINE CULTUREon 06-28-2024 Bacteria identified Cx Nom (U) CULTURE RESULTS NO GROWTH AT <1000 CFU/mL Normal [facility] Comment on above: Performed By: #### B EDG #### [facility] ([facility]) [address] [place] [address] VIR VAGINITIS PANEL PCRon 2024 VAGINITIS PANEL [...] clinical presentation to determine patient diagnosis. [facility] Comment on above: Performed By: #### B EDG #### [facility] ([facility]) [address] [place] [address] VIR [facility] UA (CLEAN/CATCH) TOMBSTONE ERECTOR/ELINOR RO IF IND.on 06-26-2024 BILIRUBIN URINE Negative NEGATIVE [facility] BLOOD URINE Negative NEGATIVE [facility] Clarity (U) CLEAR CLEAR [facility] Color (U) LT. YELLOW YELLOW [facility] GLUCOSE URINE UA Negative NEGATIVE mg/dL [facility] Interpretation and review of laboratory results Abnormal [facility] Ketones Ql (U) Negative NEGATIVE mg/dL [facility] Leukocyte esterase Test strip Ql (U) LARGE Abnormal NEGATIVE [facility] NITRITE URINE Negative NEGATIVE [facility] pH (U) 7.5 [pH] 5.0 - 9.0 [facility] PROTEIN URINE Negative NEG/TRACE mg/dL [facility] SPECIFIC GRAVITY URINE 1.015 1.005 - 1.025 [facility] URINE MICROSCOPIC INDICATED YES [facility] UROBILINOGEN URINE 1.0 EU/dL 0.2 - 1.0 EU/dL [facility] Urinalysis macro (dipstick) panel (U)on 06-15-2024 Bilirubin, UA Negative Negative - 4(70) +++ mg/dL [facility] Blood, UA Negative Negative - 50 Isaac/mcL [facility] Clarity, UA Clear [facility] Color, UA Yellow [facility] Glucose, UA Positive Negative - 2000(110) ++++ mg/dL [facility] Comment on above: 100 Interpretation and review of laboratory results Abnormal [facility] Ketones, UA Positive Negative - 160(16) ++++ mg/dL [facility] Comment on above: trace Leukocytes, UA Trace Negative - 500+++ Shreya/mcL [facility] Nitrite, UA Negative Negative - Positive [facility] pH, UA 7 5 - 9 [facility] Protein, UA Trace Negative - 1999(20) ++++ mg/dL [facility] Spec Grav, UA 1.025 1 - 1.03 [facility] Urobilinogen, UA 1.0 0.2 - 12 mg/dL [facility] US OB FOLLOW UP TRANSABDOMIN AL [...] 1437 gm / 3 lbs, 2 oz (1304-8067 gm) [place] Normal: 1405 gm (4291-1846 gm) [place] Wt%: 57% for 29.1 wks [...] II, MD, PHD at 03-Jun-2024 06:46:50 PM [facility] Normal Not Available Comment on above: Order Comment: US OB TRANSVAGINAL (CERVICAL LENGTH) Estimated Date of Delivery: 08/23/24 Gestational Age as of 05/04/2024: 24w1d Urinalysis macro (dipstick) panel (U)on 06-01-2024 Bilirubin, UA Negative Negative - 4(70) +++ mg/dL [facility] Blood, UA Positive Negative - 50 Isaac/mcL [facility] Comment on above: Trace-intact Clarity, UA Clear [facility] Color, UA Yellow [facility] Glucose, UA Negative Negative - 2000(110) ++++ mg/dL [facility] Interpretation and review of laboratory results Abnormal [facility] Ketones, UA Negative Negative - 160(16) ++++ mg/dL [facility] Leukocytes, UA Negative Negative - 500+++ Shreya/mcL [facility] Nitrite, UA Negative Negative - Positive [facility] pH, UA 7 5 - 9 [facility] Protein, UA Negative Negative - 2000(20) ++++ mg/dL [facility] Spec Grav, UA 1.02 1 - 1.03 [facility] Urobilinogen, UA 0.2 0.2 - 12 mg/dL [facility] ALL CBC WITH AUTO DIFFon BASOPHILS ABSOLUTE AUTO 0 [facility] Basophils/100 WBC (Bld) 0.2 % 0.2 - 2.0 % [facility] Eosinophils/100 WBC (Bld) 0.6 % Low 0.9 - 7.0 % [facility] Erythrocyte distribution width (RBC) [Ratio] 13 % 11.0 - 15.0 % [facility] Hematocrit (Bld) [Volume fraction] 35.1 % Low 36.0 - 48.0 % [facility] Hemoglobin (Bld) [Mass/Vol] 11.8 g/dL Low 12.0 - 16.0 g/dL [facility] IMMATURE GRANULOCYTES ABS AUTO 0.04 High [facility] Immature granulocytes/100 WBC (Bld) 0.4 % 0.0 - 0.5 % [facility] Interpretation and review of laboratory results Abnormal [facility] LYMPHOCYTES ABSOLUTE AUTO 1.4 [facility] Lymphocytes/100 WBC (Bld) 15.5 % Low 20.5 - 60.0 % [facility] MCH (RBC) [Entitic mass] 28.4 pg 26.7 - 34.0 pg [facility] MCHC (RBC) [Mass/Vol] 33.6 g/dL 29.9 - 35.2 g/dL [facility] MCV (RBC) [Entitic vol] 84.6 fL 81.0 - 99.0 fL [facility] MONOCYTES ABSOLUTE AUTO 0.6 [facility] Monocytes/100 WBC (Bld) 6.3 % 1.7 - 12.0 % [facility] NEUTROPHILS ABSOLUTE AUTO 6.8 High [facility] Neutrophils/100 WBC (Bld) 77 % High 43.0 - 75.0 % [facility] Platelet mean volume (Bld) [Entitic vol] 11 fL 9.5 - 13.5 fL [facility] EO # 0.1 [facility] PLT 174 [facility] RBC 4.15 Low [facility] WBC 8.9 [facility] Urinalysis macro (dipstick) panel (U)on 05-04-2024 Bilirubin, UA Negative Negative - 4(70) +++ mg/dL [facility] Blood, UA Negative Negative - 50 Isaac/mcL [facility] Clarity, UA Clear [facility] Color, UA Yellow [facility] Glucose, UA Negative Negative - 1999(110) ++++ mg/dL [facility] Interpretation and review of laboratory results Abnormal [facility] Ketones, UA Negative Negative - 160(16) ++++ mg/dL [facility] Leukocytes, UA Trace Negative - 500+++ Shreya/mcL [facility] Nitrite, UA Negative Negative - Positive [facility] pH, UA 7 5 - 9 [facility] Protein, UA Negative Negative - 1999(20) ++++ mg/dL [facility] Spec Grav, UA 1.02 1 - 1.03 [facility] Urobilinogen, UA 0.2 0.2 - 12 mg/dL [facility] Outside Recordson 05-01-2024 Outside Records [id number]#1.00OTGTI FF [facility] UA (CLEAN/CATCH) TOMBSTONE ERECTOR/ELINOR RO IF IND.on 04-14-2024 BILIRUBIN URINE Negative NEGATIVE [facility] BLOOD URINE Negative NEGATIVE [facility] Clarity (U) CLEAR CLEAR [facility] Color (U) LT. YELLOW YELLOW [facility] GLUCOSE URINE UA Negative NEGATIVE mg/dL [facility] Interpretation and review of laboratory results Abnormal [facility] Ketones Ql (U) Negative NEGATIVE mg/dL [facility] Leukocyte esterase Test strip Ql (U) Negative NEGATIVE [facility] NITRITE URINE Negative NEGATIVE [facility] pH (U) 6.5 [pH] 5.0 - 9.0 [facility] PROTEIN URINE Negative NEG/TRACE mg/dL [facility] SPECIFIC GRAVITY URINE <=1.005 Abnormal 1.005 - 1.025 [facility] URINE MICROSCOPIC INDICATED NO [facility] UROBILINOGEN URINE 0.2 EU/dL 0.2 - 1.0 EU/dL [facility] IGP,APTIMA HPV,AGE GDLNon AGE GDLN ACOG TESTING Note . [facility] Comment on above: TESTS RESULT FLAG UN ITS REF RANGE LAB Clinician Provided Cytology Information Source.............Cervix No. of containers..01 ThinPrep Vial Age Algo ACOG Lalito... FLAG LEGEND: L-Low Normal,H-High Normal,LL-Alert Low,HH-Alert High <-Panic Low,>-Panic High,A-Abnormal,AA-Critical Abnormal Performed at: 01 =G [facility] [address] [place] [address] Christina Chan MD, IGP, RFX APTIMA HPV ASCU Note . [facility] Comment on above: TESTS RESULT FLAG UN ITS REF RANGE LAB DIAGNOSIS: 02 NEGATIVE FOR INTRAEPITHELIAL LESION OR MALIGNANCY. Specimen adequacy: 02 Satisfactory for evaluation. No endocervical component is identified. Performed by: 02 Meghan Kaufman, Manager Payment ([facility]) . 02 Note: Note 02 The [...] High,A-Abnormal,AA-Critical Abnormal Performed at: 02 WB [facility] [address] [place] [address] Christina Chan MD, Performed at: =G - [facility] [address], [place] [id number] [employer]: Christina Chan MD, Phone: [phone] Performed at: [facility] [address] [place] [id number] [employer]: Christina Chan MD, Phone: [phone] SPATULA-ALONE CERVIX [facility] RECURRENT VAGINITIS (HTRX)on 04-07-2024 ATOPOBIUM VAGINAE 0 [facility] ATOPOBIUM VAGINAE Not [facility] 2,3 (BACTERIAL VAGINOSIS ASSOCIATED BACTERIA 2, 3); MOBILUNCUS SPP 0 [facility] BVAB 2,3 (BACTERIAL VAGINOSIS ASSOCIATED BACTERIA 2, 3); MOBILUNCUS SPP Not detected [facility] CURT ALBICANS, PARAPSILOSIS, TROPICALIS 0 [facility] CURT ALBICANS, PARAPSILOSIS, TROPICALIS Not detected [facility] CURT GLABRATA 0 [facility] CURT GLABRATA Not detected [facility] CURT KRUSEI 0 [facility] CURT KRUSEI Not detected [facility] CHLAMYDIA TRACHOMATIS 0 [facility] S [facility] CHLAMYDIA TRACHOMATIS Not detected N [facility] GARDNERELLA VAGINALIS 0 [facility] S [facility] GARDNERELLA VAGINALIS Not detected N S [facility] MEGASPHAERA (TYPES 1, 2) 0 [facility] MEGASPHAERA (TYPES 1, 2) Not detected [facility] MYCOPLASMA GENITALIUM 0 NOM S [facility] MYCOPLASMA GENITALIUM Not detected N O[facility] NEISSERIA GONORRHOEAE 0 NOM [facility] NEISSERIA GONORRHOEAE Not detected N O[facility] TRICHOMONAS VAGINALIS 0 NOM [facility] TRICHOMONAS VAGINALIS Not detected N [facility] Urinalysis macro (dipstick) panel (U)on 04-06-2024 Bilirubin, UA Negative Negative - 4(70) +++ mg/dL [facility] Blood, UA Negative Negative - 50 Isaac/mcL [facility] Clarity, UA Clear [facility] Color, UA Yellow [facility] Glucose, UA Negative Negative - 1999(110) ++++ mg/dL [facility] Interpretation and review of laboratory results Normal [facility] Ketones, UA Negative Negative - 160(16) ++++ mg/dL [facility] Leukocytes, UA Negative Negative - 500+++ Shreya/mcL [facility] Nitrite, UA Negative Negative - Positive [facility] pH, UA 8.5 5 - 9 [facility] Protein, UA Negative Negative - 1999(20) ++++ mg/dL [facility] Spec Grav, UA 1.02 1 - 1.03 [facility] Urobilinogen, UA 1.0 0.2 - 12 mg/dL [facility] ED Note - Physicianon 2024 ED Note - Physician [id number]#1.00OTGTI FF [facility] Rad - Other Radiology Report on 03-20-2024 Rad - Other Radiology Report [id number]#1.00OTGTI FF [facility] Rad - Other Radiology Report on 03-14-2024 Rad - Other Radiology Report [id number]#1.00OTGTIF F [facility] US OB CERVICAL LENGTHon 02-16 [place] [address] Ultrasound Report Signed Patient: ROSETTE ALBA MR#: [id number] : 2000 Acct:[id number] Age/Sex: 23 / F ADM Date: 03/14/24 Loc: US Attending Dr: Camacho Hernandez D.O. Ordering Physician: Camacho Hernandez D.O. 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 Ordering Physician: Camacho Hernandez D.O. Date of Service: 03/14/24 Procedure(s): US OB cervical length Accession Number(s): [id number] cc: Camacho Hernandez D.O.; OBDULIA [address] [address] Patient Name: ROSETTE ALBA MRN: [facility]:[id number] date: 2000 Sex: F Assigned Patient Location: US Current Patient Location: US Accession/Order Number: [id number] Exam Date: 03/14/2024 09:32 Report Date: 03/14/2024 [...] Signed By: 03/14/24 1006 DD/ 1003 TD/TT: Flag Football Coach: [facility] Radiology Study observation (narrative) [facility] US OB CERVICAL LENGTHOrdered By: Radiologist Radiology on 03-14-2024 [facility] Work Phone: Urinalysis macro (dipstick) panel (U)on 03-09-2024 Bilirubin, UA Negative Negative - 4(70) +++ mg/dL [facility] Blood, UA Negative Negative - 50 Isaac/mcL [facility] Clarity, UA Clear [facility] Color, UA Yellow [facility] Glucose, UA Negative Negative - 2000(110) ++++ mg/dL [facility] Interpretation and review of laboratory results Normal [facility] Ketones, UA Negative Negative - 160(16) ++++ mg/dL [facility] Leukocytes, UA Negative Negative - 500+++ Shreya/mcL [facility] Nitrite, UA Negative Negative - Positive [facility] pH, UA 7.5 5 - 9 [facility] Protein, UA Negative Negative - 2000(20) ++++ mg/dL [facility] Spec Grav, UA 1.02 1 - 1.03 [facility] Urobilinogen, UA 1.0 0.2 - 12 mg/dL [facility] Free Cell DNAon 2024 [facility] BOX TESTon 02-25-2024 BOX TEST SENT OUT [facility] BOX1 [facility] BOX2 02/25/2024 [facility] BOX CLIN[facility] HCG ( test) Ql (U)o n 02-03-2024 Interpretation and review of laboratory results Abnormal [facility] Preg Test, Ur Positive Negative [facility], [facility] Rad - Ultrasound Reporton Rad - Ultrasound Report [id number]#1.00OTGTIF F Normal [facility] Urinalysis macro (dipstick) panel (U)on 02-03-2024 Bilirubin, UA Negative Negative - 4(70) +++ mg/dL [facility] Blood, UA Negative Negative - 50 Isaac/mcL [facility] Clarity, UA Clear [facility] Color, UA Yellow [facility] Glucose, UA Negative Negative - 1999(110) ++++ mg/dL [facility] Interpretation and review of laboratory results Abnormal [facility] Ketones, UA Negative Negative - 160(16) ++++ mg/dL [facility] Leukocytes, UA Negative Negative - 500+++ Shreya/mcL [facility] Nitrite, UA Negative Negative - Positive [facility] pH, UA 5.5 5 - 9 [facility] Protein, UA Positive Negative - 1999(20) ++++ mg/dL [facility] Comment on above: 100 Spec Grav, UA 1.03 1 - 1.03 [facility] Urobilinogen, UA 0.2 0.2 - 12 mg/dL [facility], [facility] Rad - Other Radiology Report on 01-07-2024 Rad - Other Radiology Report [id number]#1.00OTGTIFF [facility] Outside Recordson 12-14-2023 Outside Records [id number]#1.00OTGTIF F [facility] Outside Records [id number]#1.00OTGTIF F [facility] US [facility] 10-07-2023 [facility] [address] Ultrasound Report Signed Patient: Rosette Alba MR#: [id number] : 2000 Acct:[id number] Age/Sex: 23 / F ADM Date: 10/07/23 Loc: Room: Type: [facility] Attending Dr: Nataly BOND Ordering Provider: RONDA [...] Kirkland Jr., D.O.10/07/2023 11:25 AM Dictation Location: [place] [address] Tech: Marie Max Transcribed By: ANDREY 10/07/23 1125 Dictated By: Richard Kirkland Jr, DO 10/07/23 1123 Signed By: 10/07/23 1125 Normal [facility] US thyroidon 10-07-2023 US thyroid [facility] [place] [address] Ultrasound Report Signed Patient: Rosette Alba MR#: [id number] : 2000 Acct:[id number] Age/Sex: 23 / F ADM Date: 10/07/23 Loc: Room: Type: [facility] Attending Dr: Nataly BOND Ordering Provider: RONDA [...] Kirkland Jr., D.O.10/07/2023 11:26 AM Dictation Location: [place] [address] Tech: Marie Max Transcribed By: ANDREY 10/07/23 1126 Dictated By: Richard Kirkland Jr, DO 10/07/23 1125 Signed By: 10/07/23 1126 Normal [facility] XR KUBon 10-07-2023 XR KUB [facility] [place] [address] XRay Report Signed Patient: Rosette Alba MR#: [id number] : 2000 Acct:[id number] Age/Sex: 23 / F ADM Date: 10/07/23 Loc: Room: Type: [facility] Attending Dr: Nataly BOND Copies to: RONDA [...] Kirkland Jr., D.O.10/07/2023 8:50 AM Dictation Location: [place] [address] Transcribed By: [facility] 10/07/23 0850 Dictated By: Richard Kirkland Jr, DO 10/07/23 0849 Signed By: 10/07/23 0850 Normal [facility] Bacteria [Presence] in Urine by AutomatedOrdered By: Carmelo Vinson on 10-04-2023 Bacteria Auto Ql (U) None seen [HPF] None Seen [facility] Bilirubin Test strip Ql (U)O rdered By: Carmelo Vinson on 10-04-2023 Bilirubin Ql (U) Negative Negative [facility] Color of Urine by AutoOrdere d By: Carmelo Vinson on 10-04-2023 Color (U) Yellow Normal Yellow [facility] Comment on above: Order Comment: Name Collection Type:: Clean-Voided Midstream Performed By: #### U HCG, ADDONUAPLUS ####[place] [id number] [facility] Dipstick and Microscopicon 0 10-04-2023 Bacteria,Urine None Seen Normal None Seen [facility] Comment on above: Order Comment: Name Collection Type:: Clean-Voided Midstream Performed By: #### U HCG, ADDONUAPLUS ####[place] [id number] [facility] Bilirubin,Urine Negative Normal Negative [facility] Comment on above: Order Comment: Name Collection Type:: Clean-Voided Midstream Performed By: #### U HCG, ADDONUAPLUS ####[address] Glucose Ql (U) Normal Normal Normal [facility] Comment on above: Order Comment: Name Collection Type:: Clean-Voided Midstream Performed By: #### U HCG, ADDONUAPLUS ####[address] Hyaline Casts,Urine 0-8 Normal 0-8 [facility] Comment on above: Order Comment: Name Collection Type:: Clean-Voided Midstream Performed By: #### U HCG, ADDONUAPLUS ####[address] Mucus,Urine 4+ Critically abnormal [facility] Comment on above: Order Comment: Name Collection Type:: Clean-Voided Midstream Performed By: #### U HCG, ADDONUAPLUS ####[place] [id number] [facility] Nitrite,Urine Negative Normal Negative [facility] Comment on above: Order Comment: Name Collection Type:: Clean-Voided Midstream Performed By: #### U HCG, ADDONUAPLUS ####[address] Occult Blood,Urine Negative Normal Negative [facility] Comment on above: Order Comment: Name Collection Type:: Clean-Voided Midstream Performed By: #### U HCG, ADDONUAPLUS ####[address] RBC,Urine 1-2 Normal 0-4 [facility] Comment on above: Order Comment: Name Collection Type:: Clean-Voided Midstream Performed By: #### U HCG, ADDONUAPLUS ####[address] Specificy Lefor,Urine 1.039 High 1.001-1.03 0 [facility] Comment on above: Order Comment: Name Collection Type:: Clean-Voided Midstream Performed By: #### U HCG, ADDONUAPLUS ####[address] Squamous Epithelial Cell,Urine 5-9 High 0-2 [facility] Comment on above: Order Comment: Name Collection Type:: Clean-Voided Midstream Performed By: #### U HCG, ADDONUAPLUS ####[address] Urobilinogen,Urine 2 mg/dL High Normal [facility] Comment on above: Order Comment: Name Collection Type:: Clean-Voided Midstream Performed By: #### U HCG, ADDONUAPLUS ####[address] WBC,Urine 3-4 Normal 0-4 [facility] Comment on above: Order Comment: Name Collection Type:: Clean-Voided Midstream Performed By: #### U HCG, ADDONUAPLUS ####[address] Epithelial cells.squamous [# /area] in Urine sediment by Automated countOrdered By: Carmelo Vinson on 10-04-2023 Epithelial cells.squamous Auto (Urine sed) [#/Area] 5-9 [HPF] High 0-2 [facility] Erythrocytes [#/area] in Uri ne sediment by Automated countOrdered By: Carmelo Vinson on 10-04-2023 RBC Auto (Urine sed) [#/Area] 1-2 [HPF] 0-4 [facility] Glucose [Mass/volume] in Uri ne by Test stripOrdered By: Carmelo Vinson on 10-04-2023 Glucose Test strip (U) [Mass/Vol] Normal mg/dL Normal [facility] HCG ( test) IA.rapi d Ql (U)Ordered By: PROVIDER KUSUM on 10-04-2023 HCG ( test) Ql (U) Negative [facility] HCG,Urineon 10-04-2023 Beta HCG ( test) Ql (U) Negative Normal [facility] Comment on above: Order Comment: Name Collection Type:: Clean-Voided Midstream Result Comment: PERF ORMED BY: [facility] [address] [place] [id number] PATHOLOGIST TELEVISION SERVICER ALLA OROZCO M.D. Performed By: #### U HCG, ADDONUAPLUS ####[place] [id number] [place] [id number] [facility] Hemoglobin Test strip Ql (U) Ordered By: Carmelo Vinson on 10-04-2023 Hemoglobin Ql (U) Negative Negative [facility] Hyaline casts [#/area] in Ur ine sediment by Automated countOrdered By: Carmelo Vinson on 10-04-2023 Hyaline casts Auto (Urine sed) [#/Area] 0-8 [LPF] 0-8 [facility] Ketones [Presence] in Urine by Test stripOrdered By: Carmelo Vinson on 10-04-2023 Ketones Ql (U) Trace High Negative [facility] Comment on above: Order Comment: Name Collection Type:: Clean-Voided Midstream Performed By: #### U HCG, ADDONUAPLUS ####[place] [id number] [place] [id number] [facility] Leukocyte esterase [Presence ] in Urine by Test stripOrdered By: Carmelo Vinson on 10-04-2023 Leukocyte esterase Test strip Ql (U) Negative Normal Negative [facility] Comment on above: Order Comment: Name Collection Type:: Clean-Voided Midstream Performed By: #### U HCG, ADDONUAPLUS ####[place] [id number] [place] Leukocytes [#/area] in Urine sediment by Automated countOrdered By: Carmelo Vinson on 10-04-2023 WBC Auto (Urine sed) [#/Area] 3-4 [HPF] 0-4 [facility] Mucus [Presence] in Urine by AutomatedOrdered By: Carmelo Vinson on 10-04-2023 Mucus Auto Ql (U) 4+ [LPF] Abnormal [facility] Nitrite Test strip Ql (U)Ord ered By: Carmelo Vinson on 10-04-2023 Nitrite Ql (U) Negative Negative [facility] Protein [Mass/volume] in Uri ne by Test stripOrdered By: Carmelo Vinson on 10-04-2023 Protein (U) [Mass/Vol] 30 mg/dL High Negative [facility] Comment on above: Order Comment: Name Collection Type:: Clean-Voided Midstream Performed By: #### U HCG, ADDONUAPLUS ####[address] Specific gravity Test strip (U) [Rel density]Ordered By: Carmelo Vinson on 10-04-2023 Specific gravity (U) [Rel density] 1.039 High 1.001-1.03 0 [facility] Urine appearanceOrdered By: Carmelo Vinson on 10-04-2023 Appearance (U) Clear Normal Clear [facility] Comment on above: Order Comment: Name Collection Type:: Clean-Voided Midstream Performed By: #### U HCG, ADDONUAPLUS ####[address] Urobilinogen Test strip (U) [Mass/Vol]Ordered By: Carmelo Vinson on 10-04-2023 Urobilinogen (U) [Mass/Vol] 2 mg/dL High Normal [facility] pH of Urine by Test stripOrd ered By: Carmelo Vinson on 10-04-2023 pH (U) 6.0 [pH] Normal 5.0-9.0 [facility] Comment on above: Order Comment: Name Collection Type:: Clean-Voided Midstream Performed By: #### U HCG, ADDONUAPLUS ####[address] Alanine aminotransferase [En zymatic activity/volume] in Serum or PlasmaOrdered By: Nataly Toure on 09-30-2023 ALT [Catalytic activity/Vol] 14 U/L Normal 7-52 [facility] Comment on above: Order Comment: Reaso n for Exam Adenopathy Reason for Exam Iron deficiency Reason for Exam Hypothyroidism, unspecified type Performed By: #### C BC, CMP, DDIMER, TSH3 wRFLX, FE and TIBC #### [facility] [address] [place] [address] [place] Albumin [Mass/volume] in Ser um or Plasma by Bromocresol green (BCG) dye binding methoOrdered By: Nataly Toure on 09-30-2023 Albumin BCG dye [Mass/Vol] 4.2 g/dL 3.5-5.7 [facility] Alkaline phosphatase [Enzyma tic activity/volume] in Serum or PlasmaOrdered By: Nataly Toure on 09-30-2023 ALP [Catalytic activity/Vol] 80 U/L Normal 34-104 [facility] Comment on above: Order Comment: Reaso n for Exam Adenopathy Reason for Exam Iron deficiency Reason for Exam Hypothyroidism, unspecified type Performed By: #### C BC, CMP, DDIMER, TSH3 wRFLX, FE and TIBC #### [facility] [address] [place] [address] [place] Aspartate aminotransferase [ Enzymatic activity/volume] in Serum or PlasmaOrdered By: Nataly Toure on 09-30-2023 AST [Catalytic activity/Vol] 10 U/L Low 13-39 [facility] Comment on above: Order Comment: Reaso n for Exam Adenopathy Reason for Exam Iron deficiency Reason for Exam Hypothyroidism, unspecified type Performed By: #### C BC, CMP, DDIMER, TSH3 wRFLX, FE and TIBC #### [facility] [address] [place] [address] [place] Automated basophil %Ordered By: Nataly Toure on 09-30-2023 Basophils/100 WBC (Bld) 0.5 % Normal . [facility] Comment on above: Order Comment: Reaso n for Exam Adenopathy Performed By: #### C BC, CMP, DDIMER, TSH3 wRFLX, FE and TIBC #### [facility] [address] [place] [address] Automated basophil countOrde red By: Nataly Toure on 09-30-2023 Basophils (Bld) [#/Vol] 0.0 10*3/uL Normal 0.0-0.2 [facility] Comment on above: Order Comment: Reaso n for Exam Adenopathy Result Comment: PERF ORMED BY: [place] [address] PATHOLOGIST TELEVISION SERVICER ALLA OROZCO M.D. Performed By: #### C BC, CMP, DDIMER, TSH3 wRFLX, FE and TIBC #### [address] Automated blood monocyte cou ntOrdered By: Nataly Toure on 09-30-2023 Monocytes (Bld) [#/Vol] 0.7 10*3/uL Normal 0.0-0.8 [facility] Comment on above: Order Comment: Reaso n for Exam Adenopathy Performed By: #### C BC, CMP, DDIMER, TSH3 wRFLX, FE and TIBC #### [address] Automated eosinophil %Ordere d By: Nataly Toure on 09-30-2023 Eosinophils/100 WBC (Bld) 0.4 % Normal . [facility] Comment on above: Order Comment: Reaso n for Exam Adenopathy Performed By: #### C BC, CMP, DDIMER, TSH3 wRFLX, FE and TIBC #### [facility] [address] [place] [address] Automated eosinophil countOr dered By: Nataly Toure on 09-30-2023 Eosinophils (Bld) [#/Vol] 0.0 10*3/uL Normal 0.0-0.45 [facility] Comment on above: Order Comment: Reaso n for Exam Adenopathy Performed By: #### C BC, CMP, DDIMER, TSH3 wRFLX, FE and TIBC #### [address] [place] [address] [place] Automated monocyte %Ordered By: Nataly Toure on 09-30-2023 Monocytes/100 WBC (Bld) 8.0 % Normal . [facility] Comment on above: Order Comment: Reaso n for Exam Adenopathy Performed By: #### C BC, CMP, DDIMER, TSH3 wRFLX, FE and TIBC #### [facility] [address] Automated neutrophil %Ordere d By: Nataly Toure on 09-30-2023 Neutrophils/100 WBC (Bld) 58.7 % Normal . [facility] Comment on above: Order Comment: Reaso n for Exam Adenopathy Performed By: #### C BC, CMP, DDIMER, TSH3 wRFLX, FE and TIBC #### [address] Bilirubin.total [Mass/volume ] in Serum or PlasmaOrdered By: Nataly Toure on 09-30-2023 Bilirubin [Mass/Vol] 0.3 mg/dL Normal 0.3-1.0 [facility] Comment on above: Order Comment: Reaso n for Exam Adenopathy Reason for Exam Iron deficiency Reason for Exam Hypothyroidism, unspecified type Performed By: #### C BC, CMP, DDIMER, TSH3 wRFLX, FE and TIBC #### [address] Calcium [Mass/volume] in Ser um or PlasmaOrdered By: Nataly Toure on 09-30-2023 Calcium [Mass/Vol] 9.3 mg/dL Normal 8.6-10.3 [facility] Comment on above: Order Comment: Reaso n for Exam Adenopathy Reason for Exam Iron deficiency Reason for Exam Hypothyroidism, unspecified type Performed By: #### C BC, CMP, DDIMER, TSH3 wRFLX, FE and TIBC #### [facility] [address] [place] [address] Carbon dioxide, total [Moles /volume] in Serum or PlasmaOrdered By: Nataly Toure on 08-15-2024 CO2 [Moles/Vol] 29.9 mmol/L Normal 21.0-31.0 [facility] Comment on above: Order Comment: Reaso n for Exam Adenopathy Reason for Exam Iron deficiency Reason for Exam Hypothyroidism, unspecified type Performed By: #### C BC, CMP, DDIMER, TSH3 wRFLX, FE and TIBC #### [facility] [address] Chloride [Moles/volume] in S rosa or PlasmaOrdered By: Nataly Toure on 09-30-2023 Chloride [Moles/Vol] 103 mmol/L Normal 98-107 [facility] Comment on above: Order Comment: Reaso n for Exam Adenopathy Reason for Exam Iron deficiency Reason for Exam Hypothyroidism, unspecified type Performed By: #### C BC, CMP, DDIMER, TSH3 wRFLX, FE and TIBC #### [facility] [address] Complete Blood Count Auto Di ffon 09-30-2023 Mean Corpuscular HGB Conc 33.2 g/dL Normal 32.0-35.0 [facility] Comment on above: Order Comment: Reaso n for Exam Adenopathy Performed By: #### C BC, CMP, DDIMER, TSH3 wRFLX, FE and TIBC #### [facility] [address] NRBC% 0.1 /100{WBC} Normal 0-0.5 [facility] Comment on above: Order Comment: Reaso n for Exam Adenopathy Performed By: #### C BC, CMP, DDIMER, TSH3 wRFLX, FE and TIBC #### [facility] [address] Comprehensive Metabolic Pane marco 09-30-2023 Albumin [Mass/Vol] 4.2 g/dL Normal 3.5-5.7 [facility] Comment on above: Order Comment: Reaso n for Exam Adenopathy Reason for Exam Iron deficiency Reason for Exam Hypothyroidism, unspecified type Performed By: #### C BC, CMP, DDIMER, TSH3 wRFLX, FE and TIBC #### [facility] [address] [place] [address] [facility] GFR/1.73 sq M.predicted MDRD (S/P/Bld) [Vol rate/Area] mL/min/{1.73_m2} Normal [facility] Comment on above: Order Comment: Reaso n for Exam Adenopathy Reason for Exam Iron deficiency Reason for Exam Hypothyroidism, unspecified type Performed By: #### C BC, CMP, DDIMER, TSH3 wRFLX, FE and TIBC #### [facility] [address] [place] [address] [facility] Creatinine [Mass/volume] in Serum or PlasmaOrdered By: Nataly Toure on 09-30-2023 Creatinine [Mass/Vol] 0.73 mg/dL Normal 0.60-1.20 [facility] Comment on above: Order Comment: Reaso n for Exam Adenopathy Reason for Exam Iron deficiency Reason for Exam Hypothyroidism, unspecified type Performed By: #### C BC, CMP, DDIMER, TSH3 wRFLX, FE and TIBC #### [facility] [address] [place] [address] [facility] D-Dimer High Sensitivityon 0 09-30-2023 D-Dimer High Sensitivity < 200 Normal 0-243 [facility] Comment on above: [...] coagulation studies. Please contact the laboratory at [phone] for redraw instructions. PERFORMED BY: [place] [id number] PATHOLOGIST TELEVISION SERVICER ALLA OROZCO M.D. Performed By: #### C BC, CMP, DDIMER, TSH3 wRFLX, FE and TIBC #### [facility] [address] Erythrocyte distribution wid th [Ratio] by Automated countOrdered By: Nataly Toure on 09-30-2023 Erythrocyte distribution width (RBC) [Ratio] 15.0 % Normal 11.9-15.3 [facility] Comment on above: Order Comment: Reaso n for Exam Adenopathy Performed By: #### C BC, CMP, DDIMER, TSH3 wRFLX, FE and TIBC #### [facility] [address] Erythrocytes [#/volume] in B lood by Automated countOrdered By: Nataly Toure on 09-30-2023 RBC (Bld) [#/Vol] 4.79 10*6/uL Normal 3.60-5.00 [facility] Comment on above: Order Comment: Reaso n for Exam Adenopathy Performed By: #### C BC, CMP, DDIMER, TSH3 wRFLX, FE and TIBC #### [facility] [address] [place] [address] Fibrin D-dimer [Presence] in Platelet poor plasma by Latex agglutinationOrdered By: Nataly Toure on 09-30-2023 Fibrin D-dimer LA Ql (PPP) < 200 ng/mL 0-243 [facility] Comment on above: The reference [...] coagulation studies. Please contact the laboratory at [phone] for redraw instructions. Glucose [Mass/volume] in Ser um or PlasmaOrdered By: Nataly Toure on 09-30-2023 Glucose [Mass/Vol] 75 mg/dL Normal 70-100 [facility] Comment on above: ADA recommended refe rence rangeRandom Glucose Reference Range is dependent on time and content of last meal. Glucose of more than 200 mg/dL in a nonstressed, ambulatory subject supports the diagnosis of Diabetes Mellitus. Order Comment: Reaso n for Exam Adenopathy Reason for Exam Iron deficiency Reason for Exam Hypothyroidism, unspecified type Result Comment: [place] om Glucose Reference Range is dependent on time and content of last meal. Glucose of more than 200 mg/dL in a nonstressed, ambulatory subject supports the diagnosis of Diabetes Mellitus. ADA recommended reference range Performed By: #### C BC, CMP, DDIMER, TSH3 wRFLX, FE and TIBC #### [facility] [address] [place] [address] Hematocrit [Volume Fraction] of Blood by Automated countOrdered By: Nataly Toure on 09-30-2023 Hematocrit (Bld) [Volume fraction] 37.9 % Normal 34.0-46.4 [facility] Comment on above: Order Comment: Reaso n for Exam Adenopathy Performed By: #### C BC, CMP, DDIMER, TSH3 wRFLX, FE and TIBC #### [facility] [address] [place], [place] [id number] [place] Hemoglobin [Mass/volume] in BloodOrdered By: Nataly Toure on 09-30-2023 Hemoglobin (Bld) [Mass/Vol] 12.6 g/dL Normal 11.8-15.4 [facility] Comment on above: Order Comment: Reaso n for Exam Adenopathy Performed By: #### C BC, CMP, DDIMER, TSH3 wRFLX, FE and TIBC #### [facility] [address] [place], [place] [id number] [place] Iron [Mass/volume] in Serum or PlasmaOrdered By: Nataly Toure on 09-30-2023 Iron [Mass/Vol] 43 ug/dL Low 50-212 [facility] Comment on above: Order Comment: Reaso n for Exam Adenopathy Reason for Exam Iron deficiency Reason for Exam Hypothyroidism, unspecified type Performed By: #### C BC, CMP, DDIMER, TSH3 wRFLX, FE and TIBC #### [facility] [address] Iron and TIBC Profileon 09-15 % Iron Saturation 10.6 % Low 20-50 [facility] Comment on above: Order Comment: Reaso n for Exam Adenopathy Reason for Exam Iron deficiency Reason for Exam Hypothyroidism, unspecified type Performed By: #### C BC, CMP, DDIMER, TSH3 wRFLX, FE and TIBC #### [facility] [address] [place] [id number] [facility] Total Iron Binding Capacity 406 ug/dL Normal 255-450 [facility] Comment on above: Order Comment: Reaso n for Exam Adenopathy Reason for Exam Iron deficiency Reason for Exam Hypothyroidism, unspecified type Performed By: #### C BC, CMP, DDIMER, TSH3 wRFLX, FE and TIBC #### [facility] [address] Iron binding capacity [Mass/ volume] in Serum or PlasmaOrdered By: Nataly Toure on 09-30-2023 Iron binding capacity [Mass/Vol] 406 ug/dL 255-450 [facility] Iron saturation [Mass Fracti on] in Serum or PlasmaOrdered By: Nataly Toure on 09-30-2023 Iron saturation [Mass fraction] 10.6 % Low 20-50 [facility] Leukocytes [#/volume] correc kee for nucleated erythrocytes in Blood by Automated counOrdered By: Nataly Toure on 09-30-2023 WBC corrected for nucl RBC Auto (Bld) [#/Vol] 8.2 10*3/uL 3.8-11.6 [facility] Leukocytes [#/volume] in Blo od by Automated countOrdered By: Nataly Toure on 09-30-2023 WBC (Bld) [#/Vol] 8.2 10*3/uL Normal 3.8-11.6 [facility] Comment on above: Order Comment: Reaso n for Exam Adenopathy Performed By: #### C BC, CMP, DDIMER, TSH3 wRFLX, FE and TIBC #### [facility] [address] Lymphocytes [#/volume] in Bl ood by Automated countOrdered By: Nataly Toure on 09-30-2023 Lymphocytes (Bld) [#/Vol] 2.7 10*3/uL Normal 1.00-4.8 [facility] Comment on above: Order Comment: Reaso n for Exam Adenopathy Performed By: #### C BC, CMP, DDIMER, TSH3 wRFLX, FE and TIBC #### [facility] [address] [place], [place] [address] Lymphocytes/100 leukocytes i n Blood by Automated countOrdered By: Nataly Toure on 09-30-2023 Lymphocytes/100 WBC (Bld) 32.4 % Normal . [facility] Comment on above: Order Comment: Reaso n for Exam Adenopathy Performed By: #### C BC, CMP, DDIMER, TSH3 wRFLX, FE and TIBC #### [facility] [address] MCH [Entitic mass] by Automa kee countOrdered By: Nataly Toure on 09-30-2023 MCH (RBC) [Entitic mass] 26.3 pg Normal 24.7-34.3 [facility] Comment on above: Order Comment: Reaso n for Exam Adenopathy Performed By: #### C BC, CMP, DDIMER, TSH3 wRFLX, FE and TIBC #### [facility] [address] MCHC Auto (RBC) [Mass/Vol]Or dered By: Nataly Toure on 09-30-2023 MCHC (RBC) [Mass/Vol] 33.2 g/dL 32.0-35.0 [facility] MCV [Entitic volume] by Auto mated countOrdered By: Nataly Toure on 09-30-2023 MCV (RBC) [Entitic vol] 79.1 fL Low 80-100 [facility] Comment on above: Order Comment: Reaso n for Exam Adenopathy Performed By: #### C BC, CMP, DDIMER, TSH3 wRFLX, FE and TIBC #### [facility] [address] Neutrophils [#/volume] in Bl ood by Automated countOrdered By: Nataly Toure on 09-30-2023 Neutrophils (Bld) [#/Vol] 4.8 10*3/uL Normal 1.8-7.7 [facility] Comment on above: Order Comment: Reaso n for Exam Adenopathy Performed By: #### C BC, CMP, DDIMER, TSH3 wRFLX, FE and TIBC #### [facility] [address] No Panel InformationOrdered By: Nataly Toure on 09-30-2023 Estimated GFR (CKD-EPI) > 60.0 mL/Min [facility] Creatinine Clearance (Chem N/A [facility] Nucleated erythrocytes [Pres ence] in Blood by Automated countOrdered By: Nataly Toure on 09-30-2023 Nucleated RBC Auto Ql (Bld) 0.1 /100{WBC} 0-0.5 [facility] Platelet mean volume [Entiti c volume] in Blood by Automated countOrdered By: Nataly Toure on 09-30-2023 Platelet mean volume (Bld) [Entitic vol] 9.2 fL Normal 6.3-10.7 [facility] Comment on above: Order Comment: Reaso n for Exam Adenopathy Performed By: #### C BC, CMP, DDIMER, TSH3 wRFLX, FE and TIBC #### [facility] [address] [place] [address] [place] Platelets [#/volume] in Bloo d by Automated countOrdered By: Nataly Toure on 09-30-2023 Platelets (Bld) [#/Vol] 246 10*3/uL Normal 150-450 [facility] Comment on above: Order Comment: Reaso n for Exam Adenopathy Performed By: #### C BC, CMP, DDIMER, TSH3 wRFLX, FE and TIBC #### [facility] [address] [place] [id number] [place] Potassium [Moles/volume] in Serum or PlasmaOrdered By: Nataly Toure on 09-30-2023 Potassium [Moles/Vol] 3.9 mmol/L Normal 3.5-5.1 [facility] Comment on above: Order Comment: Reaso n for Exam Adenopathy Reason for Exam Iron deficiency Reason for Exam Hypothyroidism, unspecified type Performed By: #### C BC, CMP, DDIMER, TSH3 wRFLX, FE and TIBC #### [facility] [address] Protein [Mass/volume] in Ser um or PlasmaOrdered By: Nataly Toure on 09-30-2023 Protein [Mass/Vol] 7.0 g/dL Normal 6.4-8.9 [facility] Comment on above: Order Comment: Reaso n for Exam Adenopathy Reason for Exam Iron deficiency Reason for Exam Hypothyroidism, unspecified type Performed By: #### C BC, CMP, DDIMER, TSH3 wRFLX, FE and TIBC #### [facility] [address] Serum globulin measurement b y calculation (mass/volume)Ordered By: Nataly Toure on 09-30-2023 Globulin (S) [Mass/Vol] 2.8 g/dL [facility] Comment on above: Order Comment: Reaso n for Exam Adenopathy Reason for Exam Iron deficiency Reason for Exam Hypothyroidism, unspecified type Performed By: #### C BC, CMP, DDIMER, TSH3 wRFLX, FE and TIBC #### [facility] [address] [place] [id number] [place] Serum or plasma albumin/glob ulin mass ratioOrdered By: Nataly Toure on 09-30-2023 Albumin/Globulin [Mass ratio] 1.5 {ratio} [facility] Comment on above: Order Comment: Reaso n for Exam Adenopathy Reason for Exam Iron deficiency Reason for Exam Hypothyroidism, unspecified type Performed By: #### C BC, CMP, DDIMER, TSH3 wRFLX, FE and TIBC #### [facility] [address] Serum or plasma anion gap de terminationOrdered By: Nataly Toure on 09-30-2023 Anion gap [Moles/Vol] 11.0 mmol/L Normal 6.0-15.[address] [facility] Comment on above: Order Comment: Reaso n for Exam Adenopathy Reason for Exam Iron deficiency Reason for Exam Hypothyroidism, unspecified type Performed By: #### C BC, CMP, DDIMER, TSH3 wRFLX, FE and TIBC #### [facility] [address] Sodium [Moles/volume] in Ser um or PlasmaOrdered By: Nataly Toure on 09-30-2023 Sodium [Moles/Vol] 140 mmol/L Normal 136-145 [facility] Comment on above: Order Comment: Reaso n for Exam Adenopathy Reason for Exam Iron deficiency Reason for Exam Hypothyroidism, unspecified type Performed By: #### C BC, CMP, DDIMER, TSH3 wRFLX, FE and TIBC #### [facility] [address] [place] [address] Thyroid Stim Hormone w/Rflxo n 09-30-2023 Thyroid Stim Hormone w/Rflx 4.99 u[iU]/mL Normal 0.45-5.33 [facility] Comment on above: Order Comment: Reaso n for Exam Adenopathy Reason for Exam Iron deficiency Reason for Exam Hypothyroidism, unspecified type Result Comment: PERF ORMED BY: [place] [address] PATHOLOGIST TELEVISION SERVICER ALLA OROZCO M.D. Performed By: #### C BC, CMP, DDIMER, TSH3 wRFLX, FE and TIBC #### [facility] [address] Thyrotropin [Units/volume] i n Serum or PlasmaOrdered By: Nataly Toure on 09-30-2023 TSH Qn 4.99 m[IU]/L 0.45-5.33 [facility] Transferrin [Mass/volume] in Serum or PlasmaOrdered By: Nataly Toure on 09-30-2023 Transferrin [Mass/Vol] 290 mg/dL Normal 203-[address] [facility] Comment on above: Order Comment: Reaso n for Exam Adenopathy Reason for Exam Iron deficiency Reason for Exam Hypothyroidism, unspecified type Performed By: #### C BC, CMP, DDIMER, TSH3 wRFLX, FE and TIBC #### [facility] [address] Urea nitrogen [Mass/volume] in Serum or PlasmaOrdered By: Nataly Toure on 09-30-2023 Urea nitrogen [Mass/Vol] 23 mg/dL Normal 7-25 [facility] Comment on above: Order Comment: Reaso n for Exam Adenopathy Reason for Exam Iron deficiency Reason for Exam Hypothyroidism, unspecified type Performed By: #### C BC, CMP, DDIMER, TSH3 wRFLX, FE and TIBC #### [facility] [address] [place] [address] CT lumbar spine wo conon CT lumbar spine wo con [facility] [place] [address] [place] [address] CT Scan Report Signed Patient: Rosette Alba MR#: [id number] : 2000 Acct:[id number] Age/Sex: 23 / F ADM Date: 09/26/23 Loc: ER Room: Type: [facility] ER Attending Dr: Copies to: [...] Deborah Vazquez M.D.09/27/2023 8:13 AM Dictation Location: [place] [address] Transcribed By: [facility] 09/27/23812 Dictated By: Deborah Vazquez MD 09/27/23803 Signed By: 09/27/23812 Normal [facility] Bacteria [Presence] in Urine by AutomatedOrdered By: Devon Leon on 09-26-2023 Bacteria Auto Ql (U) Rare [HPF] None Seen [facility] Bilirubin Test strip Ql (U)O rdered By: Devon Leon on 09-26-2023 Bilirubin Ql (U) Negative Negative [facility] Color of Urine by AutoOrdere d By: Devon Leon on 09-26-2023 Color (U) Light-yellow Normal Yellow [facility] Comment on above: Order Comment: Name Collection Type:: Clean-Voided Midstream Performed By: #### C UU, ADDONUAPLUS #### [address] Dipstick and Microscopicon 0 09-26-2023 Bacteria,Urine Rare Normal None Seen [facility] Comment on above: Order Comment: Name Collection Type:: Clean-Voided Midstream Performed By: #### C UU, ADDONUAPLUS #### [place] [address] [place] Bilirubin,Urine Negative Normal Negative [facility] Comment on above: Order Comment: Name Collection Type:: Clean-Voided Midstream Performed By: #### C UU, ADDONUAPLUS #### [address] Glucose Ql (U) Normal Normal Normal [facility] Comment on above: Order Comment: Name Collection Type:: Clean-Voided Midstream Performed By: #### C UU, ADDONUAPLUS #### [place] [address] [place] Hyaline Casts,Urine None Normal 0-8 [facility] Comment on above: Order Comment: Name Collection Type:: Clean-Voided Midstream Performed By: #### C UU, ADDONUAPLUS #### [place] [address] [place] Mucus,Urine 2+ Critically abnormal [facility] Comment on above: Order Comment: Name Collection Type:: Clean-Voided Midstream Performed By: #### C UU, ADDONUAPLUS #### [place] [address] [place] Nitrite,Urine Negative Normal Negative [facility] Comment on above: Order Comment: Name Collection Type:: Clean-Voided Midstream Performed By: #### C UU, ADDONUAPLUS #### [place] [address] [place] Occult Blood,Urine 2+ High Negative [facility] Comment on above: Order Comment: Name Collection Type:: Clean-Voided Midstream Result Comment: PERF ORMED BY: [place] [address] PATHOLOGIST TELEVISION SERVICER ALLA OROZCO M.D. Performed By: #### C UU, ADDONUAPLUS #### [place] [address] [place] Protein,Urine Trace High Negative [facility] Comment on above: Order Comment: Name Collection Type:: Clean-Voided Midstream Performed By: #### C UU, ADDONUAPLUS #### [address] RBC,Urine 3-4 Normal 0-4 [facility] Comment on above: Order Comment: Name Collection Type:: Clean-Voided Midstream Performed By: #### C UU, ADDONUAPLUS #### [address] Specificy [place]ef[place],Urine 1.030 Normal 1.001-1.03 0 [facility] Comment on above: Order Comment: Name Collection Type:: Clean-Voided Midstream Performed By: #### C UU, ADDONUAPLUS #### [address] Sperm,Urine 5-9 High 0-2 [facility] Comment on above: Order Comment: Name Collection Type:: Clean-Voided Midstream Result Comment: PERF ORMED BY: [place] [address] PATHOLOGIST TELEVISION SERVICER ALLA OROZCO M.D. Performed By: #### C UU, ADDONUAPLUS #### [address] Squamous Epithelial Cell,Urine 5-9 High 0-2 [facility] Comment on above: Order Comment: Name Collection Type:: Clean-Voided Midstream Performed By: #### C UU, ADDONUAPLUS #### [address] Urobilinogen,Urine Normal Normal Normal [facility] Comment on above: Order Comment: Name Collection Type:: Clean-Voided Midstream Performed By: #### C UU, ADDONUAPLUS #### [address] WBC,Urine 5-9 High 0-4 [facility] Comment on above: Order Comment: Name Collection Type:: Clean-Voided Midstream Performed By: #### C UU, ADDONUAPLUS #### [address] [place] [address] [place] Epithelial cells.squamous [# /area] in Urine sediment by Automated countOrdered By: Devon Leon on 09-26-2023 Epithelial cells.squamous Auto (Urine sed) [#/Area] 5-9 [HPF] High 0-2 [facility] Erythrocytes [#/area] in Uri ne sediment by Automated countOrdered By: Devon Leon on 09-26-2023 RBC Auto (Urine sed) [#/Area] 3-4 [HPF] 0-4 [facility] Glucose [Mass/volume] in Uri ne by Test stripOrdered By: Devon Leon on 09-26-2023 Glucose Test strip (U) [Mass/Vol] Normal mg/dL Normal [facility] Hemoglobin Test strip Ql (U) Ordered By: Devon Leon on 09-26-2023 Hemoglobin Ql (U) 2+ High Negative [facility] Hyaline casts [#/area] in Ur ine sediment by Automated countOrdered By: Devon Leon on 09-26-2023 Hyaline casts Auto (Urine sed) [#/Area] None [LPF] 0-8 [facility] Ketones [Presence] in Urine by Test stripOrdered By: Devon Leon on 09-26-2023 Ketones Ql (U) Negative Normal Negative [facility] Comment on above: Order Comment: Name Collection Type:: Clean-Voided Midstream Performed By: #### C UU, ADDONUAPLUS #### [facility] [address] [place] [address] [place] Leukocyte esterase [Presence ] in Urine by Test stripOrdered By: Devon Leon on 09-26-2023 Leukocyte esterase Test strip Ql (U) 2+ High Negative [facility] Comment on above: Order Comment: Name Collection Type:: Clean-Voided Midstream Performed By: #### C UU, ADDONUAPLUS #### [facility] [address] [place] [address] [place] Leukocytes [#/area] in Urine sediment by Automated countOrdered By: Devon Leon on 09-26-2023 WBC Auto (Urine sed) [#/Area] 5-9 [HPF] High 0-4 [facility] Mucus [Presence] in Urine by AutomatedOrdered By: Devon Leon on 09-26-2023 Mucus Auto Ql (U) 2+ [LPF] Abnormal [facility] Nitrite Test strip Ql (U)Ord ered By: Devon Leon on 09-26-2023 Nitrite Ql (U) Negative Negative [facility] Protein Test strip (U) [Mass /Vol]Ordered By: Devon Leon on 09-26-2023 Protein (U) [Mass/Vol] Trace mg/dL High Negative [facility] [place] Specific gravity Test strip (U) [Rel density]Ordered By: Devon Leon on 09-26-2023 Specific gravity (U) [Rel density] 1.030 1.001-1.03 0 [facility] [place] [#/area] in Urin e sediment by Automated countOrdered By: Devon Leon on 09-26-2023 [place] Auto (Urine sed) [#/Area] 5-9 [HPF] High 0-2 [facility] Urine Cultureon 09-26-2023 Bacteria identified Cx Nom (U) ORGANISM: Strep agalactiae - (group b) (O:STRAGA) [place] Count 75,000 PERFORMED BY: [facility] [address] [place] [address] PATHOLOGIST TELEVISION SERVICER ALLA OROZCO M.D. Normal [facility] Comment on above: Performed By: #### C UU, ADDONUAPLUS ####[facility] [id number] Urine appearanceOrdered By: Devon Leon on 09-26-2023 Appearance (U) Clear Normal Clear [facility] Comment on above: Order Comment: Name Collection Type:: Clean-Voided Midstream Performed By: #### C UU, ADDONUAPLUS #### [facility] [address] Urine culture routineOrdered By: Devon Leon on 09-26-2023 Bacteria identified Cx Nom (U) Strep agalactiae - (group b) Abnormal [facility] Urobilinogen Test strip (U) [Mass/Vol]Ordered By: Devon Leon on 08-11-2024 Urobilinogen (U) [Mass/Vol] Normal mg/dL Normal [facility] pH of Urine by Test stripOrd ered By: Devon Leon on 09-26-2023 pH (U) 6.0 [pH] Normal 5.0-9.0 [facility] Comment on above: Order Comment: Name Collection Type:: Clean-Voided Midstream Performed By: #### C UU, ADDONUAPLUS #### [facility] [address] Alanine aminotransferase [En zymatic activity/volume] in Serum or PlasmaOrdered By: Nataly Toure on 08-03-2023 ALT [Catalytic activity/Vol] 14 U/L 7-52 [facility] Albumin [Mass/volume] in Ser um or Plasma by Bromocresol green (BCG) dye binding methoOrdered By: Nataly Toure on 08-03-2023 Albumin BCG dye [Mass/Vol] 4.4 g/dL 3.5-5.7 [facility] Alkaline phosphatase [Enzyma tic activity/volume] in Serum or PlasmaOrdered By: Nataly Toure on 08-03-2023 ALP [Catalytic activity/Vol] 85 U/L 34-104 [facility] Aspartate aminotransferase [ Enzymatic activity/volume] in Serum or PlasmaOrdered By: Nataly oTure on 08-03-2023 AST [Catalytic activity/Vol] 13 U/L 13-39 [facility] Basophils Auto (Bld) [#/Vol] Ordered By: Nataly Toure on 08-03-2023 Basophils (Bld) [#/Vol] 0.0 10*3/uL 0.0-0.2 [facility] Basophils/100 WBC Auto (Bld) Ordered By: Nataly Toure on 08-03-2023 Basophils/100 WBC (Bld) 0.4 % . [facility] Bilirubin.total [Mass/volume ] in Serum or PlasmaOrdered By: Nataly Toure on 08-03-2023 Bilirubin [Mass/Vol] 0.5 mg/dL 0.3-1.0 [facility] Calcium [Mass/volume] in Ser um or PlasmaOrdered By: Nataly Toure on 08-03-2023 Calcium [Mass/Vol] 9.5 mg/dL 8.6-10.3 [facility] Carbon dioxide, total [Moles /volume] in Serum or PlasmaOrdered By: Nataly Toure on 08-03-2023 CO2 [Moles/Vol] 27.2 mmol/L 21.0-31.0 [facility] Chloride [Moles/volume] in S rosa or PlasmaOrdered By: Nataly Toure on 08-03-2023 Chloride [Moles/Vol] 105 mmol/L 98-107 [facility] Cholesterol [Mass/volume] in Serum or PlasmaOrdered By: Nataly Toure on 08-03-2023 Cholesterol [Mass/Vol] 159 mg/dL 140-[address] [facility] Comment on above: Chol less than 200 m g/dl low riskChol 201-239 mg/dl borderline riskChol 240 mg/dl and greater high risk Cholesterol in LDL Calc [Mas s/Vol]Ordered By: Nataly Toure on 08-03-2023 Cholesterol in LDL [Mass/Vol] 82 mg/dL 0-100 [facility] Comment on above: LDL ATP III CLASSIFI CATIONLDL less than 100 mg/dL OptimalLDL 100-129 mg/dL Near or above optimalLDL 130-159 mg/dL Borderline highLDL 160-189 mg/dL HighLDL greater than 189 mg/dL Very high Cholesterol in VLDL Calc [Ma ss/Vol]Ordered By: Nataly Toure on 08-03-2023 Cholesterol in VLDL [Mass/Vol] 28 mg/dL [facility] Creatinine [Mass/volume] in Serum or PlasmaOrdered By: Nataly Toure on 08-03-2023 Creatinine [Mass/Vol] 0.78 mg/dL 0.60-1.20 [facility] Eosinophils Auto (Bld) [#/Vo l]Ordered By: Nataly Toure on 08-03-2023 Eosinophils (Bld) [#/Vol] 0.0 10*3/uL 0.0-0.45 [facility] Eosinophils/100 WBC Auto (Bl d)Ordered By: Nataly Toure on 08-03-2023 Eosinophils/100 WBC (Bld) 0.5 % . [facility] Erythrocyte distribution wid th Auto (RBC) [Ratio]Ordered By: Nataly Toure on 08-03-2023 Erythrocyte distribution width (RBC) [Ratio] 14.3 % 11.9-15.3 [facility] Globulin Calc (S) [Mass/Vol] Ordered By: Nataly Toure on 08-03-2023 Globulin (S) [Mass/Vol] 2.8 g/dL [facility] Glucose [Mass/volume] in Ser um or PlasmaOrdered By: Nataly Toure on 08-03-2023 Glucose [Mass/Vol] 82 mg/dL 70-100 [facility] Comment on above: ADA recommended refe rence rangeRandom Glucose Reference Range is dependent on time and content of last meal. Glucose of more than 200 mg/dL in a nonstressed, ambulatory subject supports the diagnosis of Diabetes Mellitus. Hematocrit Auto (Bld) [Volum e fraction]Ordered By: Nataly Toure on 08-03-2023 Hematocrit (Bld) [Volume fraction] 36.8 % 34.0-46.4 [facility] Hemoglobin [Mass/volume] in BloodOrdered By: Nataly Toure on 08-03-2023 Hemoglobin (Bld) [Mass/Vol] 12.2 g/dL 11.8-15.4 [facility] Iron [Mass/volume] in Serum or PlasmaOrdered By: Nataly Toure on 08-03-2023 Iron [Mass/Vol] 43 ug/dL Low 50-212 [facility] Iron binding capacity [Mass/ volume] in Serum or PlasmaOrdered By: Nataly Toure on 08-03-2023 Iron binding capacity [Mass/Vol] 382 ug/dL 255-450 [facility] Iron saturation [Mass Fracti on] in Serum or PlasmaOrdered By: Nataly Toure on 08-03-2023 Iron saturation [Mass fraction] 11.3 % Low 20-50 [facility] Leukocytes [#/volume] correc kee for nucleated erythrocytes in Blood by Automated counOrdered By: Nataly Toure on 08-03-2023 WBC corrected for nucl RBC Auto (Bld) [#/Vol] 7.2 10*3/uL 3.8-11.6 [facility] Lymphocytes Auto (Bld) [#/Vo l]Ordered By: Nataly Toure on 08-03-2023 Lymphocytes (Bld) [#/Vol] 1.6 10*3/uL 1.00-4.8 [facility] Lymphocytes/100 WBC Auto (Bl d)Ordered By: Nataly Toure on 08-03-2023 Lymphocytes/100 WBC (Bld) 22.8 % . [facility] MCH Auto (RBC) [Entitic mass ]Ordered By: Nataly Toure on 08-03-2023 MCH (RBC) [Entitic mass] 25.8 pg 24.7-34.3 [facility] MCHC Auto (RBC) [Mass/Vol]Or dered By: Nataly Toure on 08-03-2023 MCHC (RBC) [Mass/Vol] 33.1 g/dL 32.0-35.0 [facility] MCV Auto (RBC) [Entitic vol] Ordered By: Nataly Toure on 08-03-2023 MCV (RBC) [Entitic vol] 78.0 fL Low 80-100 [facility] Monocytes Auto (Bld) [#/Vol] Ordered By: Nataly Toure on 08-03-2023 Monocytes (Bld) [#/Vol] 0.4 10*3/uL 0.0-0.8 [facility] Monocytes/100 WBC Auto (Bld) Ordered By: Nataly Toure on 08-03-2023 Monocytes/100 WBC (Bld) 5.4 % . [facility] Neutrophils Auto (Bld) [#/Vo l]Ordered By: Nataly Toure on 08-03-2023 Neutrophils (Bld) [#/Vol] 5.1 10*3/uL 1.8-7.7 [facility] Neutrophils/100 WBC Auto (Bl d)Ordered By: Nataly Toure on 08-03-2023 Neutrophils/100 WBC (Bld) 70.9 % . [facility] No Panel InformationOrdered By: Nataly Toure on 08-03-2023 Estimated GFR (CKD-EPI) > 60.0 mL/Min [facility] Creatinine Clearance (Chem N/A [facility] Nucleated erythrocytes [Pres ence] in Blood by Automated countOrdered By: Nataly Toure on 08-03-2023 Nucleated RBC Auto Ql (Bld) 0.2 /100{WBC} 0-0.5 [facility] Platelet mean volume Auto (B ld) [Entitic vol]Ordered By: Nataly Toure on 08-03-2023 Platelet mean volume (Bld) [Entitic vol] 9.2 fL 6.3-10.7 [facility] Platelets Auto (Bld) [#/Vol] Ordered By: Nataly Toure on 08-03-2023 Platelets (Bld) [#/Vol] 260 10*3/uL 150-450 [facility] Potassium [Moles/volume] in Serum or PlasmaOrdered By: Nataly Toure on 08-03-2023 Potassium [Moles/Vol] 3.6 mmol/L 3.5-5.1 [facility] Protein [Mass/volume] in Ser um or PlasmaOrdered By: Nataly Toure on 08-03-2023 Protein [Mass/Vol] 7.2 g/dL 6.4-8.9 [facility] RBC Auto (Bld) [#/Vol]Ordere d By: Nataly Toure on 08-03-2023 RBC (Bld) [#/Vol] 4.72 10*6/uL 3.60-5.00 [facility] Serum or plasma albumin/glob ulin mass ratioOrdered By: Nataly Toure on 08-03-2023 Albumin/Globulin [Mass ratio] 1.6 {ratio} [facility] Serum or plasma anion gap de terminationOrdered By: Nataly Toure on 08-03-2023 Anion gap [Moles/Vol] 11.4 mmol/L 6.0-15.[address] [facility] Serum or plasma high density lipoprotein (HDL) cholesterol measurementOrdered By: Nataly Toure on 08-03-2023 Cholesterol in HDL [Mass/Vol] 49 mg/dL 23-92 [facility] Comment on above: HDL CHOL ATP-III CLA SSIFICATION Cardiovascular RiskHDL > or equal to 60 mg/dL LOWHDL < 40 mg/dL HIGH Serum or plasma insulin nikita urement (units/volume)Ordered By: Nataly Toure on 08-03-2023 Insulin Qn 14.1 u[iU]/mL 2.6-24.9 [facility] Comment on above: Performed at: [facility] [employer] [address] [id number] Director: Sam Lopez PhD, Phone: [phone] Serum or plasma total choles terol/high density lipoprotein (HDL) cholesterol mass ratOrdered By: Nataly Toure on 08-03-2023 Cholesterol.total/Chol esterol in HDL [Mass ratio] 3.2 {ratio} <5.0 [facility] Sodium [Moles/volume] in Ser um or PlasmaOrdered By: Nataly Toure on 08-03-2023 Sodium [Moles/Vol] 140 mmol/L 136-145 [facility] Thyrotropin [Units/volume] i n Serum or PlasmaOrdered By: Nataly Toure on 08-03-2023 TSH Qn 3.20 m[IU]/L 0.45-5.33 [facility] Transferrin [Mass/volume] in Serum or PlasmaOrdered By: Nataly Toure on 08-03-2023 Transferrin [Mass/Vol] 273 mg/dL 203-[address] [facility] Triglyceride [Mass/volume] i n Serum or PlasmaOrdered By: Nataly Toure on 08-03-2023 Triglyceride [Mass/Vol] 140 mg/dL 0-149 [facility] Comment on above: TRIG ATP III CLASSIF ICATIONTRIG less than 150 mg/dL NormalTRIG 150-199 mg/dL Borderline highTRIG 200-500 mg/dL High TRIG greater than 500 mg/dL Very highStandard traceable to the Center for Disease Conrtrol and Prevention (CDC) test method. Urea nitrogen [Mass/volume] in Serum or PlasmaOrdered By: Nataly Toure on 08-03-2023 Urea nitrogen [Mass/Vol] 10 mg/dL 7-25 [facility] WBC Auto (Bld) [#/Vol]Ordere d By: Nataly Toure on 08-03-2023 WBC (Bld) [#/Vol] 7.2 10*3/uL 3.8-11.6 [facility] Glucose mean value [Mass/vol ume] in Blood Estimated from glycated hemoglobinOrdered By: Nataly Toure on 03-17-2023 Average glucose Estimated from glycated hemoglobin (Bld) [Mass/Vol] 114 mg/dL [facility] Hemoglobin A1c percentageOrd ered By: Nataly Toure on 03-17-2023 HbA1c (Bld) [Mass fraction] 5.6 % 4.3-5.6 [facility] Comment on above: Increased risk for d iabetes: 5.7 - 6.4diabetes: >6.4glycemic control for adults with diabetes: <7.0 Alanine aminotransferase [En zymatic activity/volume] in Serum or PlasmaOrdered By: Nataly Toure on 03-04-2023 ALT [Catalytic activity/Vol] 12 U/L 7-52 [facility] Albumin [Mass/volume] in Ser um or Plasma by Bromocresol green (BCG) dye binding methoOrdered By: Nataly Toure on 03-04-2023 Albumin BCG dye [Mass/Vol] 3.7 g/dL 3.5-5.7 [facility] Alkaline phosphatase [Enzyma tic activity/volume] in Serum or PlasmaOrdered By: Nataly Toure on 03-04-2023 ALP [Catalytic activity/Vol] 100 U/L 34-104 [facility] Aspartate aminotransferase [ Enzymatic activity/volume] in Serum or PlasmaOrdered By: Nataly Toure on 03-04-2023 AST [Catalytic activity/Vol] 12 U/L 13-39 [facility] Basophils Auto (Bld) [#/Vol] Ordered By: Nataly Toure on 03-04-2023 Basophils (Bld) [#/Vol] 0.1 10*3/uL 0.0-0.2 [facility] Basophils/100 WBC Auto (Bld) Ordered By: Nataly Toure on 03-04-2023 Basophils/100 WBC (Bld) 1.0 % . [facility] Bilirubin.total [Mass/volume ] in Serum or PlasmaOrdered By: Nataly Toure on 03-04-2023 Bilirubin [Mass/Vol] 0.3 mg/dL 0.3-1.0 [facility] Calcium [Mass/volume] in Ser um or PlasmaOrdered By: Nataly Toure on 03-04-2023 Calcium [Mass/Vol] 8.9 mg/dL 8.6-10.3 [facility] Carbon dioxide, total [Moles /volume] in Serum or PlasmaOrdered By: Nataly Toure on 03-04-2023 CO2 [Moles/Vol] 26.6 mmol/L 21.0-31.0 [facility] Chloride [Moles/volume] in S rosa or PlasmaOrdered By: Nataly Toure on 03-04-2023 Chloride [Moles/Vol] 105 mmol/L 98-107 [facility] Cholesterol [Mass/volume] in Serum or PlasmaOrdered By: Nataly Toure on 03-04-2023 Cholesterol [Mass/Vol] 231 mg/dL 140-[address] [facility] Comment on above: Chol less than 200 m g/dl low riskChol 201-239 mg/dl borderline riskChol 240 mg/dl and greater high risk Cholesterol in LDL Calc [Mas s/Vol]Ordered By: Nataly Toure on 03-04-2023 Cholesterol in LDL [Mass/Vol] TNP [facility] Comment on above: Test not performed Cholesterol in LDL [Mass/vol ume] in Serum or PlasmaOrdered By: Nataly Toure on 03-04-2023 Cholesterol in LDL [Mass/Vol] 81 mg/dL 0-100 [facility] Comment on above: LDL ATP III CLASSIFI CATIONLDL less than 100 mg/dL OptimalLDL 100-129 mg/dL Near or above optimalLDL 130-159 mg/dL Borderline highLDL 160-189 mg/dL HighLDL greater than 189 mg/dL Very high Cholesterol in VLDL Calc [Ma ss/Vol]Ordered By: Nataly Toure on 03-04-2023 Cholesterol in VLDL [Mass/Vol] 172 mg/dL [facility] Creatinine [Mass/volume] in Serum or PlasmaOrdered By: Nataly Toure on 03-04-2023 Creatinine [Mass/Vol] 0.72 mg/dL 0.60-1.20 [facility] Eosinophils Auto (Bld) [#/Vo l]Ordered By: Nataly Toure on 03-04-2023 Eosinophils (Bld) [#/Vol] 0.1 10*3/uL 0.0-0.45 [facility] Eosinophils/100 WBC Auto (Bl d)Ordered By: Nataly Toure on 03-04-2023 Eosinophils/100 WBC (Bld) 2.0 % . [facility] Erythrocyte distribution wid th Auto (RBC) [Ratio]Ordered By: Nataly Toure on 03-04-2023 Erythrocyte distribution width (RBC) [Ratio] 16.0 % 11.9-15.3 [facility] Ferritin [Mass/volume] in Se rum or PlasmaOrdered By: Nataly Toure on 03-04-2023 Ferritin [Mass/Vol] 18.9 ng/mL 11.0-306.8 [facility] Globulin Calc (S) [Mass/Vol] Ordered By: Nataly Toure on 03-04-2023 Globulin (S) [Mass/Vol] 2.7 g/dL [facility] Glucose [Mass/volume] in Ser um or PlasmaOrdered By: Nataly Toure on 03-04-2023 Glucose [Mass/Vol] 95 mg/dL 70-100 [facility] Comment on above: ADA recommended refe rence rangeRandom Glucose Reference Range is dependent on time and content of last meal. Glucose of more than 200 mg/dL in a nonstressed, ambulatory subject supports the diagnosis of Diabetes Mellitus. Hematocrit Auto (Bld) [Volum e fraction]Ordered By: Nataly Toure on 03-04-2023 Hematocrit (Bld) [Volume fraction] 34.7 % 34.0-46.4 [facility] Hemoglobin [Mass/volume] in BloodOrdered By: Nataly Toure on 03-04-2023 Hemoglobin (Bld) [Mass/Vol] 11.3 g/dL 11.8-15.4 [facility] Iron [Mass/volume] in Serum or PlasmaOrdered By: Nataly Toure on 03-04-2023 Iron [Mass/Vol] 43 ug/dL 50-212 [facility] Iron binding capacity [Mass/ volume] in Serum or PlasmaOrdered By: Nataly Toure on 03-04-2023 Iron binding capacity [Mass/Vol] 375 ug/dL 255-450 [facility] Iron saturation [Mass Fracti on] in Serum or PlasmaOrdered By: Nataly Toure on 03-04-2023 Iron saturation [Mass fraction] 11.5 % 20-50 [facility] Leukocytes [#/volume] correc kee for nucleated erythrocytes in Blood by Automated counOrdered By: Nataly Toure on 03-04-2023 WBC corrected for nucl RBC Auto (Bld) [#/Vol] 6.2 10*3/uL 3.8-11.6 [facility] Lymphocytes Auto (Bld) [#/Vo l]Ordered By: Nataly Toure on 03-04-2023 Lymphocytes (Bld) [#/Vol] 1.8 10*3/uL 1.00-4.8 [facility] Lymphocytes/100 WBC Auto (Bl d)Ordered By: Nataly Toure on 03-04-2023 Lymphocytes/100 WBC (Bld) 29.4 % . [facility] MCH Auto (RBC) [Entitic mass ]Ordered By: Nataly Toure on 03-04-2023 MCH (RBC) [Entitic mass] 25.1 pg 24.7-34.3 [facility] MCHC Auto (RBC) [Mass/Vol]Or dered By: Nataly Toure on 03-04-2023 MCHC (RBC) [Mass/Vol] 32.7 g/dL 32.0-35.0 [facility] MCV Auto (RBC) [Entitic vol] Ordered By: Nataly Toure on 03-04-2023 MCV (RBC) [Entitic vol] 76.7 fL 80-100 [facility] Monocytes Auto (Bld) [#/Vol] Ordered By: Nataly Toure on 03-04-2023 Monocytes (Bld) [#/Vol] 0.6 10*3/uL 0.0-0.8 [facility] Monocytes/100 WBC Auto (Bld) Ordered By: Nataly Toure on 03-04-2023 Monocytes/100 WBC (Bld) 9.2 % . [facility] Neutrophils Auto (Bld) [#/Vo l]Ordered By: Nataly Toure on 03-04-2023 Neutrophils (Bld) [#/Vol] 3.6 10*3/uL 1.8-7.7 [facility] Neutrophils/100 WBC Auto (Bl d)Ordered By: Nataly Toure on 03-04-2023 Neutrophils/100 WBC (Bld) 58.4 % . [facility] No Panel InformationOrdered By: Nataly Toure on 03-04-2023 Estimated GFR (CKD-EPI) > 60.0 mL/Min [facility] Creatinine Clearance (Chem N/A [facility] Nucleated erythrocytes [Pres ence] in Blood by Automated countOrdered By: Nataly Toure on 03-04-2023 Nucleated RBC Auto Ql (Bld) 0.1 /100{WBC} 0-0.5 [facility] Platelet mean volume Auto (B ld) [Entitic vol]Ordered By: Nataly Toure on 03-04-2023 Platelet mean volume (Bld) [Entitic vol] 9.8 fL 6.3-10.7 [facility] Platelets Auto (Bld) [#/Vol] Ordered By: Nataly Toure on 03-04-2023 Platelets (Bld) [#/Vol] 217 10*3/uL 150-450 [facility] Potassium [Moles/volume] in Serum or PlasmaOrdered By: Nataly Toure on 03-04-2023 Potassium [Moles/Vol] 3.8 mmol/L 3.5-5.1 [facility] Protein [Mass/volume] in Ser um or PlasmaOrdered By: Nataly Toure on 03-04-2023 Protein [Mass/Vol] 6.4 g/dL 6.4-8.9 [facility] RBC Auto (Bld) [#/Vol]Ordere d By: Nataly Toure on 03-04-2023 RBC (Bld) [#/Vol] 4.52 10*6/uL 3.60-5.00 [facility] Serum or plasma albumin/glob ulin mass ratioOrdered By: Nataly Toure on 03-04-2023 Albumin/Globulin [Mass ratio] 1.4 {ratio} [facility] Serum or plasma anion gap de terminationOrdered By: Nataly Toure on 03-04-2023 Anion gap [Moles/Vol] 11.2 mmol/L 6.0-15.[address] [facility] Serum or plasma high density lipoprotein (HDL) cholesterol measurementOrdered By: Nataly Toure on 03-04-2023 Cholesterol in HDL [Mass/Vol] 35 mg/dL 23-92 [facility] Comment on above: HDL CHOL ATP-III CLA SSIFICATION Cardiovascular RiskHDL > or equal to 60 mg/dL LOWHDL < 40 mg/dL HIGH Serum or plasma total choles terol/high density lipoprotein (HDL) cholesterol mass ratOrdered By: Nataly Toure on 03-04-2023 Cholesterol.total/Chol esterol in HDL [Mass ratio] 6.6 {ratio} <5.0 [facility] Sodium [Moles/volume] in Ser um or PlasmaOrdered By: Nataly Toure on 03-04-2023 Sodium [Moles/Vol] 139 mmol/L 136-145 [facility] Thyrotropin [Units/volume] i n Serum or PlasmaOrdered By: Nataly Toure on 03-04-2023 TSH Qn 1.50 m[IU]/L 0.45-5.33 [facility] Transferrin [Mass/volume] in Serum or PlasmaOrdered By: Nataly Toure on 03-04-2023 Transferrin [Mass/Vol] 268 mg/dL 203-[address] [facility] Triglyceride [Mass/volume] i n Serum or PlasmaOrdered By: Nataly Toure on 03-04-2023 Triglyceride [Mass/Vol] 863 mg/dL 0-149 [facility] Comment on above: If the [...] 03-04-2023 Urea nitrogen [Mass/Vol] 11 mg/dL 7-25 [facility] Vitamin B12 ser/plasOrdered By: Nataly Toure on 03-04-2023 Cobalamin (Vitamin B12) [Mass/Vol] 303 pg/mL 180-914 [facility] WBC Auto (Bld) [#/Vol]Ordere d By: Nataly Toure on 03-04-2023 WBC (Bld) [#/Vol] 6.2 10*3/uL 3.8-11.6 [facility] Automated erythrocytes count in urine sediment (number/area)Ordered By: EDE WAY on 02-13-2023 RBC Auto (Urine sed) [#/Area] Innumerable [HPF] 0-4 [facility] Automated leukocytes count i n urine sediment (number/area)Ordered By: EDE WAY on 02-13-2023 WBC Auto (Urine sed) [#/Area] 5-9 [HPF] 0-4 [facility] Basophils Auto (Bld) [#/Vol] Ordered By: EDE WAY on 02-13-2023 Basophils (Bld) [#/Vol] 0.1 10*3/uL 0.0-0.2 [facility] Basophils/100 WBC Auto (Bld) Ordered By: EDE WAY on 02-13-2023 Basophils/100 WBC (Bld) 0.7 % . [facility] Bilirubin Test strip Ql (U)O rdered By: EDE WAY on 02-13-2023 Bilirubin Ql (U) Negative Negative [facility] Color Auto (U)Ordered By: SAGE WAY on 02-13-2023 Color (U) Roberts Yellow [facility] Eosinophils Auto (Bld) [#/Vo l]Ordered By: EDE WAY on 02-13-2023 Eosinophils (Bld) [#/Vol] 0.1 10*3/uL 0.0-0.45 [facility] Eosinophils/100 WBC Auto (Bl d)Ordered By: EDE WAY on 02-13-2023 Eosinophils/100 WBC (Bld) 0.6 % . [facility] Erythrocyte distribution wid th Auto (RBC) [Ratio]Ordered By: EDE WAY on 02-13-2023 Erythrocyte distribution width (RBC) [Ratio] 16.2 % 11.9-15.3 [facility] Hematocrit Auto (Bld) [Volum e fraction]Ordered By: EDE WAY on 02-13-2023 Hematocrit (Bld) [Volume fraction] 33.2 % 34.0-46.4 [facility] Hemoglobin [Mass/volume] in BloodOrdered By: EDE WAY on 02-13-2023 Hemoglobin (Bld) [Mass/Vol] 11.2 g/dL 11.8-15.4 [facility] Ketones Auto test strip (U) [Mass/Vol]Ordered By: EDE WAY on 02-13-2023 Ketones (U) [Mass/Vol] Trace Negative [facility] Laboratory - UrinalysisOrder ed By: EDE WAY on 02-13-2023 Hyaline casts LM Ql (Urine sed) 0-8 [LPF] 0-8 [facility] Leukocytes [#/volume] correc kee for nucleated erythrocytes in Blood by Automated counOrdered By: EDE WAY on 02-13-2023 WBC corrected for nucl RBC Auto (Bld) [#/Vol] 9.1 10*3/uL 3.8-11.6 [facility] Lymphocytes Auto (Bld) [#/Vo l]Ordered By: EDE WAY on 02-13-2023 Lymphocytes (Bld) [#/Vol] 1.5 10*3/uL 1.00-4.8 [facility] Lymphocytes/100 WBC Auto (Bl d)Ordered By: EDE WAY on 02-13-2023 Lymphocytes/100 WBC (Bld) 16.2 % . [facility] MCH Auto (RBC) [Entitic mass ]Ordered By: EDE WAY on 02-13-2023 MCH (RBC) [Entitic mass] 25.6 pg 24.7-34.3 [facility] MCHC Auto (RBC) [Mass/Vol]Or dered By: EDE WAY on 02-13-2023 MCHC (RBC) [Mass/Vol] 33.8 g/dL 32.0-35.0 [facility] MCV Auto (RBC) [Entitic vol] Ordered By: EDE WAY on 02-13-2023 MCV (RBC) [Entitic vol] 75.7 fL 80-100 [facility] Monocytes Auto (Bld) [#/Vol] Ordered By: EDE WAY on 02-13-2023 Monocytes (Bld) [#/Vol] 0.8 10*3/uL 0.0-0.8 [facility] Monocytes/100 WBC Auto (Bld) Ordered By: EDE WAY on 02-13-2023 Monocytes/100 WBC (Bld) 8.8 % . [facility] Neutrophils Auto (Bld) [#/Vo l]Ordered By: EDE WAY on 02-13-2023 Neutrophils (Bld) [#/Vol] 6.7 10*3/uL 1.8-7.7 [facility] Neutrophils/100 WBC Auto (Bl d)Ordered By: EDE WAY on 02-13-2023 Neutrophils/100 WBC (Bld) 73.7 % . [facility] Nitrite Test strip Ql (U)Ord ered By: EDE WAY on 02-13-2023 Nitrite Ql (U) Negative Negative [facility] Nucleated erythrocytes [Pres ence] in Blood by Automated countOrdered By: EDE WAY on 02-13-2023 Nucleated RBC Auto Ql (Bld) 0.1 /100{WBC} 0-0.5 [facility] Platelet mean volume Auto (B ld) [Entitic vol]Ordered By: EDE WAY on 02-13-2023 Platelet mean volume (Bld) [Entitic vol] 8.5 fL 6.3-10.7 [facility] Platelets Auto (Bld) [#/Vol] Ordered By: EDE WAY on 02-13-2023 Platelets (Bld) [#/Vol] 178 10*3/uL 150-450 [facility] Protein Auto test strip (U) [Mass/Vol]Ordered By: EDE WAY on 02-13-2023 Protein (U) [Mass/Vol] 30 mg/dL [facility] RBC Auto (Bld) [#/Vol]Ordere d By: EDE WAY on 02-13-2023 RBC (Bld) [#/Vol] 4.38 10*6/uL 3.60-5.00 [facility] Reagin Ab [Presence] in Seru m by RPROrdered By: EDE WAY on 02-13-2023 Reagin Ab RPR Ql (S) Non-Reactive Non Reactive [facility] Comment on above: Performed at: - [employer] [address] [id number] Director: Sam Lopez PhD, Phone: [phone] Specific gravity Auto test s trip (U) [Rel density]Ordered By: EDE WAY on 02-13-2023 Specific gravity (U) [Rel density] 1.015 1.001-1.03 0 [facility] Squamous epithelial cells de tection in urine sediment by light microscopyOrdered By: EDE WAY on 02-13-2023 Epithelial cells.squamous LM Ql (Urine sed) 3-4 [HPF] 0-2 [facility] Urine bacteria detection by automated methodOrdered By: EDE WAY on 02-13-2023 Bacteria Auto Ql (U) None seen None Seen [facility] Urine clarity by refractomet ry automatedOrdered By: EDE WAY on 02-13-2023 Clarity Refractometry automated (U) Clear Clear [facility] Urine culture routineOrdered By: EDE WAY on 02-13-2023 Bacteria identified Cx Nom (U) No Growth 2 Days [facility] Urine glucose measurement by automated test strip (mass/volume)Ordered By: EDE WAY on 02-13-2023 Glucose Auto test strip (U) [Mass/Vol] Normal mg/dL Normal [facility] Urine hemoglobin detection b y automated test stripOrdered By: EDE WAY on 02-13-2023 Hemoglobin Auto test strip Ql (U) 3+ Negative [facility] Urine leukocyte esterase det ection by automated test stripOrdered By: EDE WAY on 02-13-2023 Leukocyte esterase Auto test strip Ql (U) 1+ Negative [facility] Urobilinogen Auto test strip (U) [Mass/Vol]Ordered By: EDE WAY on 02-13-2023 Urobilinogen (U) [Mass/Vol] Normal mg/dL Normal [facility] WBC Auto (Bld) [#/Vol]Ordere d By: EDE WAY on 02-13-2023 WBC (Bld) [#/Vol] 9.1 10*3/uL 3.8-11.6 [facility] pH Auto test strip (U)Ordere d By: EDE WAY on 02-13-2023 pH (U) 6.5 [pH] 5.0-9.0 [facility] Amphetamine Screen Ql (U)Ord ered By: Radha Molina on 02-01-2023 Amphetamines Ql (U) Negative Negative [facility] Automated erythrocytes count in urine sediment (number/area)Ordered By: Radha Molina on 02-01-2023 RBC Auto (Urine sed) [#/Area] 3-4 [HPF] 0-4 [facility] Automated leukocytes count i n urine sediment (number/area)Ordered By: Radha Molina on 02-01-2023 WBC Auto (Urine sed) [#/Area] 10-19 [HPF] 0-4 [facility] Automated urine sediment esteban cium oxalate crystal count by microscopy (number/high powOrdered By: Radha Molina on 02-01-2023 Calcium oxalate crystals LM.HPF (Urine sed) [#/Area] 3+ [HPF] [facility] Barbiturates [Presence] in U rine by Screen methodOrdered By: Radha Molina on 02-01-2023 Barbiturates Screen Ql (U) Negative Negative [facility] Benzodiazepines Screen Ql (U )Ordered By: Radha Molina on 02-01-2023 Benzodiazepines Ql (U) Negative Negative [facility] Benzoylecgonine [Presence] i n Urine by Screen methodOrdered By: Radha Molina on 02-01-2023 Benzoylecgonine Screen Ql (U) Negative Negative [facility] Bilirubin Test strip Ql (U)O rdered By: Radha Molina on 02-01-2023 Bilirubin Ql (U) Negative Negative [facility] Color Auto (U)Ordered By: Mirna pruitt Jesse on 02-01-2023 Color (U) Yellow Yellow [facility] Ketones Auto test strip (U) [Mass/Vol]Ordered By: Radha Molina on 02-01-2023 Ketones (U) [Mass/Vol] Trace Negative [facility] - UrinalysisOrder ed By: Radha Molina on 02-01-2023 Hyaline casts LM Ql (Urine sed) 0-8 [LPF] 0-8 [facility] Nitrite Test strip Ql (U)Ord ered By: Radha Molina on 02-01-2023 Nitrite Ql (U) Negative Negative [facility] Opiates [Presence] in Urine by Screen methodOrdered By: Radha Molina on 02-01-2023 Opiates Screen Ql (U) Negative Negative [facility] Phencyclidine Screen Ql (U)O rdered By: Radha Molina on 02-01-2023 Phencyclidine Ql (U) Negative Negative [facility] Comment on above: These are unconfirme d results and should not be used for legal purposes. Drug Cut-Off Concentration: AMPH 1000 ng/mL KELLY 200 ng/mL JOE 200 ng/mL COCM 300 ng/mL OP 300 ng/mL PCP 25 ng/mL Protein Auto test strip (U) [Mass/Vol]Ordered By: Radha Molina on 02-01-2023 Protein (U) [Mass/Vol] Trace mg/dL Negative [facility] Specific gravity Auto test s trip (U) [Rel density]Ordered By: Radha Molina on 02-01-2023 Specific gravity (U) [Rel density] 1.025 1.001-1.03 0 [facility] Squamous epithelial cells de tection in urine sediment by light microscopyOrdered By: Radha Molina on 02-01-2023 Epithelial cells.squamous LM Ql (Urine sed) 10-19 [HPF] 0-2 [facility] Urine bacteria detection by automated methodOrdered By: Radha Molina on 02-01-2023 Bacteria Auto Ql (U) 1+ None Seen [facility] Urine clarity by refractomet ry automatedOrdered By: Radha Molina on 02-01-2023 Clarity Refractometry automated (U) Cloudy Clear [facility] Urine culture routineOrdered By: Radha Molina on 02-01-2023 Bacteria identified Cx Nom (U) 2 Days [facility] Urine glucose measurement by automated test strip (mass/volume)Ordered By: Rahda Molina on 02-01-2023 Glucose Auto test strip (U) [Mass/Vol] Normal mg/dL Normal [facility] Urine hemoglobin detection b y automated test stripOrdered By: Radha Molina on 02-01-2023 Hemoglobin Auto test strip Ql (U) Negative Negative [facility] Urine leukocyte esterase det ection by automated test stripOrdered By: Radha Molina on 02-01-2023 Leukocyte esterase Auto test strip Ql (U) 2+ Negative [facility] Urine sediment crystal ident ification by light microscopyOrdered By: Radha Molina on 02-01-2023 Crystals LM Nom (Urine sed) None seen [HPF] [facility] Urobilinogen Auto test strip (U) [Mass/Vol]Ordered By: Radha Molina on 02-01-2023 Urobilinogen (U) [Mass/Vol] Normal mg/dL Normal [facility] pH Auto test strip (U)Ordere d By: Radha Molina on 02-01-2023 pH (U) 6.0 [pH] 5.0-9.0 [facility] Amphetamine Screen Ql (U)Ord ered By: MARY KAY CANTU on 01-30-2023 Amphetamines Ql (U) Negative Negative [facility] Automated erythrocytes count in urine sediment (number/area)Ordered By: MARY KAY CANTU on 01-30-2023 RBC Auto (Urine sed) [#/Area] 0-1 [HPF] 0-4 [facility] Automated leukocytes count i n urine sediment (number/area)Ordered By: MARY KAY CANTU on 01-30-2023 WBC Auto (Urine sed) [#/Area] 3-4 [HPF] 0-4 [facility] Barbiturates [Presence] in U rine by Screen methodOrdered By: MARY KAY CANTU on 01-30-2023 Barbiturates Screen Ql (U) Negative Negative [facility] Benzodiazepines Screen Ql (U )Ordered By: MARY KAY CANTU on 01-30-2023 Benzodiazepines Ql (U) Negative Negative [facility] Benzoylecgonine [Presence] i n Urine by Screen methodOrdered By: MARY KAY CANTU on 01-30-2023 Benzoylecgonine Screen Ql (U) Negative Negative [facility] Bilirubin Test strip Ql (U)O rdered By: MARY KAY CANTU on 01-30-2023 Bilirubin Ql (U) Negative Negative [facility] Color Auto (U)Ordered By: LJ CANTU on 01-30-2023 Color (U) Yellow Yellow [facility] Ketones Auto test strip (U) [Mass/Vol]Ordered By: MARY KAY CANTU on 01-30-2023 Ketones (U) [Mass/Vol] Negative Negative [facility] Laboratory - UrinalysisOrder ed By: MARY KAY CANTU on 01-30-2023 Hyaline casts LM Ql (Urine sed) 0-8 [LPF] 0-8 [facility] Nitrite Test strip Ql (U)Ord ered By: MARY KAY CANTU on 01-30-2023 Nitrite Ql (U) Negative Negative [facility] Opiates [Presence] in Urine by Screen methodOrdered By: MARY KAY CANTU on 01-30-2023 Opiates Screen Ql (U) Negative Negative [facility] Phencyclidine Screen Ql (U)O rdered By: MARY KAY CANTU on 01-30-2023 Phencyclidine Ql (U) Negative Negative [facility] Comment on above: These are unconfirme d results and should not be used for legal purposes. Drug Cut-Off Concentration: AMPH 1000 ng/mL KELLY 200 ng/mL JOE 200 ng/mL COCM 300 ng/mL OP 300 ng/mL PCP 25 ng/mL Protein Auto test strip (U) [Mass/Vol]Ordered By: MARY KAY CANTU on 01-30-2023 Protein (U) [Mass/Vol] Negative Negative [facility] Specific gravity Auto test s trip (U) [Rel density]Ordered By: MARY KAY CANTU on 01-30-2023 Specific gravity (U) [Rel density] 1.017 1.001-1.03 0 [facility] Squamous epithelial cells de tection in urine sediment by light microscopyOrdered By: MARY KAY CANTU on 01-30-2023 Epithelial cells.squamous LM Ql (Urine sed) 1-2 [HPF] 0-2 [facility] Urine bacteria detection by automated methodOrdered By: MARY KAY CANTU on 01-30-2023 Bacteria Auto Ql (U) None seen None Seen [facility] Urine clarity by refractomet ry automatedOrdered By: MARY KAY CANTU on 01-30-2023 Clarity Refractometry automated (U) Clear Clear [facility] Urine glucose measurement by automated test strip (mass/volume)Ordered By: MARY KAY CANTU on 01-30-2023 Glucose Auto test strip (U) [Mass/Vol] Normal mg/dL Normal [facility] Urine hemoglobin detection b y automated test stripOrdered By: MARY KAY CANTU on 01-30-2023 Hemoglobin Auto test strip Ql (U) Negative Negative [facility] Urine leukocyte esterase det ection by automated test stripOrdered By: MARY KAY CANTU on 01-30-2023 Leukocyte esterase Auto test strip Ql (U) 2+ Negative [facility] Urobilinogen Auto test strip (U) [Mass/Vol]Ordered By: MARY KAY CANTU on 01-30-2023 Urobilinogen (U) [Mass/Vol] Normal mg/dL Normal [facility] pH Auto test strip (U)Ordere d By: MARY KAY CANTU on 01-30-2023 pH (U) 6.5 [pH] 5.0-9.0 [facility] S. agalactiae Org specific c x Ql (Unsp spec)Ordered By: Radha Molina on 01-05-2023 Group B Streptococcus Culture Strep. agalactiae Grp B [facility] Serum or plasma glucose tole nabeel 3 hours panelOrdered By: Radha Molina on 12-22-2022 Glucose tolerance 3 hours panel See comment [facility] Comment on above: FASTING 88 Col: 110 09/06 0803 1HR GLU 146 Col: 12/22/22 1017 2HR GLU 126 Col: 12/22/22 1117 3HR GLU 144 Col: 12/22/22 1217 fibronectinOrdered By: Radha Molina on 12-08-2022 Fibronectin. (Vag fld) [Mass/Vol] Negative Negative [facility] Alanine aminotransferase [En zymatic activity/volume] in Serum or PlasmaOrdered By: Nataly Toure on 12-03-2022 ALT [Catalytic activity/Vol] 7 U/L 7-52 [facility] Albumin [Mass/volume] in Ser um or Plasma by Bromocresol green (BCG) dye binding methoOrdered By: Nataly Toure on 12-03-2022 Albumin BCG dye [Mass/Vol] 3.4 g/dL 3.5-5.7 [facility] Alkaline phosphatase [Enzyma tic activity/volume] in Serum or PlasmaOrdered By: Nataly Toure on 12-03-2022 ALP [Catalytic activity/Vol] 79 U/L 34-104 [facility] Aspartate aminotransferase [ Enzymatic activity/volume] in Serum or PlasmaOrdered By: Nataly Toure on 12-03-2022 AST [Catalytic activity/Vol] 9 U/L 13-39 [facility] Basophils Auto (Bld) [#/Vol] Ordered By: Nataly Toure on 12-03-2022 Basophils (Bld) [#/Vol] 0.0 10*3/uL 0.0-0.2 [facility] Basophils/100 WBC Auto (Bld) Ordered By: Nataly Toure on 12-03-2022 Basophils/100 WBC (Bld) 0.1 % . [facility] Bilirubin.total [Mass/volume ] in Serum or PlasmaOrdered By: Nataly Toure on 12-03-2022 Bilirubin [Mass/Vol] 0.2 mg/dL 0.3-1.0 [facility] Calcium [Mass/volume] in Ser um or PlasmaOrdered By: Nataly Toure on 12-03-2022 Calcium [Mass/Vol] 8.9 mg/dL 8.6-10.3 [facility] Carbon dioxide, total [Moles /volume] in Serum or PlasmaOrdered By: Nataly Toure on 12-03-2022 CO2 [Moles/Vol] 21.9 mmol/L 21.0-31.0 [facility] Chloride [Moles/volume] in S rosa or PlasmaOrdered By: Nataly Toure on 12-03-2022 Chloride [Moles/Vol] 102 mmol/L 98-107 [facility] Creatinine [Mass/volume] in Serum or PlasmaOrdered By: Nataly Toure on 12-03-2022 Creatinine [Mass/Vol] 0.49 mg/dL 0.60-1.20 [facility] Eosinophils Auto (Bld) [#/Vo l]Ordered By: Naatly Toure on 12-03-2022 Eosinophils (Bld) [#/Vol] 0.0 10*3/uL 0.0-0.45 [facility] Eosinophils/100 WBC Auto (Bl d)Ordered By: Nataly Toure on 12-03-2022 Eosinophils/100 WBC (Bld) 0.3 % . [facility] Erythrocyte distribution wid th Auto (RBC) [Ratio]Ordered By: Nataly Toure on 12-03-2022 Erythrocyte distribution width (RBC) [Ratio] 14.4 % 11.9-15.3 [facility] Globulin Calc (S) [Mass/Vol] Ordered By: Nataly Toure on 12-03-2022 Globulin (S) [Mass/Vol] 3.3 g/dL [facility] Glucose [Mass/volume] in Ser um or PlasmaOrdered By: Nataly Toure on 12-03-2022 Glucose [Mass/Vol] 94 mg/dL 70-100 [facility] Comment on above: ADA recommended refe rence rangeRandom Glucose Reference Range is dependent on time and content of last meal. Glucose of more than 200 mg/dL in a nonstressed, ambulatory subject supports the diagnosis of Diabetes Mellitus. Hematocrit Auto (Bld) [Volum e fraction]Ordered By: Nataly Toure on 12-03-2022 Hematocrit (Bld) [Volume fraction] 33.8 % 34.0-46.4 [facility] Hemoglobin [Mass/volume] in BloodOrdered By: Nataly Toure on 12-03-2022 Hemoglobin (Bld) [Mass/Vol] 11.0 g/dL 11.8-15.4 [facility] Iron [Mass/volume] in Serum or PlasmaOrdered By: Nataly Toure on 12-03-2022 Iron [Mass/Vol] 38 ug/dL 50-212 [facility] Iron binding capacity [Mass/ volume] in Serum or PlasmaOrdered By: Nataly Toure on 12-03-2022 Iron binding capacity [Mass/Vol] 587 ug/dL 255-450 [facility] Iron saturation [Mass Fracti on] in Serum or PlasmaOrdered By: Nataly Toure on 12-03-2022 Iron saturation [Mass fraction] 6.5 % 20-50 [facility] Leukocytes [#/volume] correc kee for nucleated erythrocytes in Blood by Automated counOrdered By: Nataly Toure on 12-03-2022 WBC corrected for nucl RBC Auto (Bld) [#/Vol] 11.2 10*3/uL 3.8-11.6 [facility] Lymphocytes Auto (Bld) [#/Vo l]Ordered By: Nataly Toure on 12-03-2022 Lymphocytes (Bld) [#/Vol] 1.8 10*3/uL 1.00-4.8 [facility] Lymphocytes/100 WBC Auto (Bl d)Ordered By: Nataly Toure on 12-03-2022 Lymphocytes/100 WBC (Bld) 16.0 % . [facility] MCH Auto (RBC) [Entitic mass ]Ordered By: Nataly Toure on 12-03-2022 MCH (RBC) [Entitic mass] 26.0 pg 24.7-34.3 [facility] MCHC Auto (RBC) [Mass/Vol]Or dered By: Nataly Toure on 12-03-2022 MCHC (RBC) [Mass/Vol] 32.5 g/dL 32.0-35.0 [facility] MCV Auto (RBC) [Entitic vol] Ordered By: Nataly Toure on 12-03-2022 MCV (RBC) [Entitic vol] 80.1 fL 80-100 [facility] Magnesium [Mass/volume] in S rosa or PlasmaOrdered By: Nataly Toure on 12-03-2022 Magnesium [Mass/Vol] 1.7 mg/dL 1.9-2.7 [facility] Monocytes Auto (Bld) [#/Vol] Ordered By: Nataly Toure on 12-03-2022 Monocytes (Bld) [#/Vol] 0.8 10*3/uL 0.0-0.8 [facility] Monocytes/100 WBC Auto (Bld) Ordered By: Nataly Toure on 12-03-2022 Monocytes/100 WBC (Bld) 6.9 % . [facility] Neutrophils Auto (Bld) [#/Vo l]Ordered By: Nataly Toure on 12-03-2022 Neutrophils (Bld) [#/Vol] 8.6 10*3/uL 1.8-7.7 [facility] Neutrophils/100 WBC Auto (Bl d)Ordered By: Nataly Toure on 12-03-2022 Neutrophils/100 WBC (Bld) 76.7 % . [facility] No Panel InformationOrdered By: Nataly Toure on 12-03-2022 Estimated GFR (CKD-EPI) > 60.0 mL/Min [facility] Creatinine Clearance (Chem N/A [facility] Nucleated erythrocytes [Pres ence] in Blood by Automated countOrdered By: Nataly Toure on 12-03-2022 Nucleated RBC Auto Ql (Bld) 0.0 /100{WBC} 0-0.5 [facility] Platelet mean volume Auto (B ld) [Entitic vol]Ordered By: Nataly Toure on 12-03-2022 Platelet mean volume (Bld) [Entitic vol] 9.0 fL 6.3-10.7 [facility] Platelets Auto (Bld) [#/Vol] Ordered By: Nataly Toure on 12-03-2022 Platelets (Bld) [#/Vol] 205 10*3/uL 150-450 [facility] Potassium [Moles/volume] in Serum or PlasmaOrdered By: Nataly Junesic on 12-03-2022 Potassium [Moles/Vol] 3.8 mmol/L 3.5-5.1 [facility] Protein [Mass/volume] in Ser um or PlasmaOrdered By: Nataly Spasic on 12-03-2022 Protein [Mass/Vol] 6.7 g/dL 6.4-8.9 [facility] RBC Auto (Bld) [#/Vol]Ordere d By: Nataly Junesic on 12-03-2022 RBC (Bld) [#/Vol] 4.22 10*6/uL 3.60-5.00 [facility] Serum or plasma albumin/glob ulin mass ratioOrdered By: Nataly Jerniganc on 12-03-2022 Albumin/Globulin [Mass ratio] 1.0 {ratio} [facility] Serum or plasma anion gap de terminationOrdered By: Nataly Jerniganc on 12-03-2022 Anion gap [Moles/Vol] 17.9 mmol/L 6.0-15.[address] [facility] Sodium [Moles/volume] in Ser um or PlasmaOrdered By: Nataly Junesic on 12-03-2022 Sodium [Moles/Vol] 138 mmol/L 136-145 [facility] Thyrotropin [Units/volume] i n Serum or PlasmaOrdered By: Nataly Junesic on 12-03-2022 TSH Qn 2.65 m[IU]/L 0.45-5.33 [facility] Transferrin [Mass/volume] in Serum or PlasmaOrdered By: Nataly Spasic on 12-03-2022 Transferrin [Mass/Vol] 419 mg/dL 203-[address] [facility] Urea nitrogen [Mass/volume] in Serum or PlasmaOrdered By: Nataly Spasic on 12-03-2022 Urea nitrogen [Mass/Vol] 11 mg/dL 7-25 [facility] WBC Auto (Bld) [#/Vol]Ordere d By: Nataly Shayleesic on 12-03-2022 WBC (Bld) [#/Vol] 11.2 10*3/uL 3.8-11.6 [facility] Activated partial thrombopla stin time (aPTT) in platelet poor plasma by coagulation aOrdered By: Staci Ortiz on 12-01-2022 aPTT Coag (PPP) [Time] 26.8 s 25.1-36.[address] [facility] Comment on above: A hematocrit value g reater than 55% may lead to inaccurate results in coagulation testing. Patients having hematocrit values >55% require a special collection tube for coagulation studies. Please contact the laboratory at [phone] for redraw instructions. Automated erythrocytes count in urine sediment (number/area)Ordered By: Staci Ortiz on 12-01-2022 RBC Auto (Urine sed) [#/Area] 0-1 [HPF] 0-4 [facility] Automated leukocytes count i n urine sediment (number/area)Ordered By: Staci Ortiz on 12-01-2022 WBC Auto (Urine sed) [#/Area] 3-4 [HPF] 0-4 [facility] Basophils Auto (Bld) [#/Vol] Ordered By: Staci Ortiz on 12-01-2022 Basophils (Bld) [#/Vol] 0.0 10*3/uL 0.0-0.2 [facility] Basophils/100 WBC Auto (Bld) Ordered By: Staci Ortiz on 12-01-2022 Basophils/100 WBC (Bld) 0.3 % . [facility] Bilirubin Test strip Ql (U)O rdered By: Staci Ortiz on 12-01-2022 Bilirubin Ql (U) Negative Negative [facility] COVID CepheidOrdered By: Noah Ortiz on 12-01-2022 SARS-CoV-2 (COVID-19) Ab IA Ql Negative Negative [facility] Comment on above: This is a duplicate [employer] Xpert Xpress CoV-2/Flu/RSV Plus RNA by RT-PCR result to be used for statistical tracking purpose only. COVID-19 Detected/Not Detect edOrdered By: Staci Ortiz on 12-01-2022 SARS-CoV-2 (COVID-19) RNA SVETLANA+non-probe Ql (Nph) Not detected Not Detecte [facility] Comment on above: This is a duplicate RP2.1 COVID (PCR) result to be used for statistical tracking purpose only. Calcium [Mass/volume] in Ser um or PlasmaOrdered By: Staci Ortiz on 12-01-2022 Calcium [Mass/Vol] 9.1 mg/dL 8.6-10.3 [facility] Carbon dioxide, total [Moles /volume] in Serum or PlasmaOrdered By: Staci Ortiz on 12-01-2022 CO2 [Moles/Vol] 22.4 mmol/L 21.0-31.0 [facility] Chloride [Moles/volume] in S rosa or PlasmaOrdered By: Staci Ortiz on 12-01-2022 Chloride [Moles/Vol] 102 mmol/L 98-107 [facility] Color Auto (U)Ordered By: Elizabeth Ortiz on 12-01-2022 Color (U) Yellow Yellow [facility] Creatinine [Mass/volume] in Serum or PlasmaOrdered By: Staci Ortiz on 12-01-2022 Creatinine [Mass/Vol] 0.51 mg/dL 0.60-1.20 [facility] Eosinophils Auto (Bld) [#/Vo l]Ordered By: Staci Ortiz on 12-01-2022 Eosinophils (Bld) [#/Vol] 0.0 10*3/uL 0.0-0.45 [facility] Eosinophils/100 WBC Auto (Bl d)Ordered By: Staci Ortiz on 12-01-2022 Eosinophils/100 WBC (Bld) 0.4 % . [facility] Erythrocyte distribution wid th Auto (RBC) [Ratio]Ordered By: Staci Ortiz on 12-01-2022 Erythrocyte distribution width (RBC) [Ratio] 14.5 % 11.9-15.3 [facility] Fibrin D-dimer [Presence] in Platelet poor plasma by Latex agglutinationOrdered By: Staci Ortiz on 12-01-2022 Fibrin D-dimer LA Ql (PPP) 231 ng/mL 0-243 [facility] Comment on above: The reference [...] coagulation studies. Please contact the laboratory at [phone] for redraw instructions. Glucose [Mass/volume] in Ser um or PlasmaOrdered By: Staci Ortiz on 12-01-2022 Glucose [Mass/Vol] 88 mg/dL 70-100 [facility] Comment on above: ADA recommended refe rence rangeRandom Glucose Reference Range is dependent on time and content of last meal. Glucose of more than 200 mg/dL in a nonstressed, ambulatory subject supports the diagnosis of Diabetes Mellitus. HCG ( test) IA.rapi d Ql (U)Ordered By: Staci Ortiz on 12-01-2022 HCG ( test) Ql (U) Positive [facility] Hematocrit Auto (Bld) [Volum e fraction]Ordered By: Staci Ortiz on 12-01-2022 Hematocrit (Bld) [Volume fraction] 34.2 % 34.0-46.4 [facility] Hemoglobin [Mass/volume] in BloodOrdered By: Staci Ortiz on 12-01-2022 Hemoglobin (Bld) [Mass/Vol] 11.3 g/dL 11.8-15.4 [facility] INR in Platelet poor plasma by Coagulation assayOrdered By: Staci Ortiz on 12-01-2022 INR Coag (PPP) [Relative time] 0.9 {INR} [facility] Comment on above: INR Therapeutic [...] on 12-01-2022 Ketones (U) [Mass/Vol] Negative Negative [facility] - UrinalysisOrder ed By: Staci Ortiz on 12-01-2022 Hyaline casts LM Ql (Urine sed) 0-8 [LPF] 0-8 [facility] Leukocytes [#/volume] correc kee for nucleated erythrocytes in Blood by Automated counOrdered By: Staci Ortiz on 12-01-2022 WBC corrected for nucl RBC Auto (Bld) [#/Vol] 12.1 10*3/uL 3.8-11.6 [facility] Lymphocytes Auto (Bld) [#/Vo l]Ordered By: Staci Ortiz on 12-01-2022 Lymphocytes (Bld) [#/Vol] 1.8 10*3/uL 1.00-4.8 [facility] Lymphocytes/100 WBC Auto (Bl d)Ordered By: Staci Ortiz on 12-01-2022 Lymphocytes/100 WBC (Bld) 14.9 % . [facility] MCH Auto (RBC) [Entitic mass ]Ordered By: Staci Ortiz on 12-01-2022 MCH (RBC) [Entitic mass] 26.4 pg 24.7-34.3 [facility] MCHC Auto (RBC) [Mass/Vol]Or dered By: Staci Ortiz on 12-01-2022 MCHC (RBC) [Mass/Vol] 33.1 g/dL 32.0-35.0 [facility] MCV Auto (RBC) [Entitic vol] Ordered By: Staci Ortiz on 12-01-2022 MCV (RBC) [Entitic vol] 79.7 fL 80-100 [facility] Monocyte distribution width [Entitic volume] in Blood by AutomatedOrdered By: Staci Ortiz on 12-01-2022 Monocyte distribution width Auto (Bld) [Entitic vol] 16.82 % 0.00-20.00 [facility] Monocytes Auto (Bld) [#/Vol] Ordered By: Staci Ortiz on 12-01-2022 Monocytes (Bld) [#/Vol] 0.9 10*3/uL 0.0-0.8 [facility] Monocytes/100 WBC Auto (Bld) Ordered By: Staci Ortiz on 12-01-2022 Monocytes/100 WBC (Bld) 7.6 % . [facility] Natriuretic peptide B [Mass/ Vol]Ordered By: Staci Ortiz on 12-01-2022 Natriuretic peptide B (Bld) [Mass/Vol] 10.0 pg/mL 5-100 [facility] Neutrophils Auto (Bld) [#/Vo l]Ordered By: Staci Ortiz on 12-01-2022 Neutrophils (Bld) [#/Vol] 9.3 10*3/uL 1.8-7.7 [facility] Neutrophils/100 WBC Auto (Bl d)Ordered By: Staci Ortiz on 12-01-2022 Neutrophils/100 WBC (Bld) 76.8 % . [facility] Nitrite Test strip Ql (U)Ord ered By: Staci Ortiz on 12-01-2022 Nitrite Ql (U) Negative Negative [facility] No Panel InformationOrdered By: Staci Ortiz on 12-01-2022 Estimated GFR (CKD-EPI) > 60.0 mL/Min [facility] Creatinine Clearance (Chem 194.78 [facility] Nucleated erythrocytes [Pres ence] in Blood by Automated countOrdered By: Staci Ortiz on 12-01-2022 Nucleated RBC Auto Ql (Bld) 0.0 /100{WBC} 0-0.5 [facility] Platelet mean volume Auto (B ld) [Entitic vol]Ordered By: Staci Ortiz on 12-01-2022 Platelet mean volume (Bld) [Entitic vol] 8.8 fL 6.3-10.7 [facility] Platelets Auto (Bld) [#/Vol] Ordered By: Staci Ortiz on 12-01-2022 Platelets (Bld) [#/Vol] 212 10*3/uL 150-450 [facility] Potassium [Moles/volume] in Serum or PlasmaOrdered By: Staci Ortiz on 12-01-2022 Potassium [Moles/Vol] 3.7 mmol/L 3.5-5.1 [facility] Protein Auto test strip (U) [Mass/Vol]Ordered By: Staci Ortiz on 12-01-2022 Protein (U) [Mass/Vol] Negative Negative [facility] Prothrombin time (PT)Ordered By: Staci Ortiz on 12-01-2022 PT Coag (PPP) [Time] 11.3 s 9.0-12.9 [facility] Comment on above: A hematocrit value g reater than 55% may lead to inaccurate results in coagulation testing. Patients having hematocrit values >55% require a special collection tube for coagulation studies. Please contact the laboratory at [phone] for redraw instructions. RBC Auto (Bld) [#/Vol]Ordere d By: Staci Ortiz on 12-01-2022 RBC (Bld) [#/Vol] 4.29 10*6/uL 3.60-5.00 [facility] Respiratory pathogens DNA an d RNA panel - Nasopharynx by SVETLANA with non-probe detectionOrdered By: Staci Ortiz on 12-01-2022 Respiratory pathogens DNA and RNA panel SVETLANA+non-probe (Nph) [facility] Respiratory pathogens DNA and RNA panel SVETLANA+non-probe (Nph) [facility] Serum or plasma anion gap de terminationOrdered By: Staci Ortiz on 12-01-2022 Anion gap [Moles/Vol] 13.3 mmol/L 6.0-15.[address] [facility] Sodium [Moles/volume] in Ser um or PlasmaOrdered By: Staci Ortiz on 12-01-2022 Sodium [Moles/Vol] 134 mmol/L 136-145 [facility] Specific gravity Auto test s trip (U) [Rel density]Ordered By: Staci Ortiz on 12-01-2022 Specific gravity (U) [Rel density] 1.021 1.001-1.03 0 [facility] Squamous epithelial cells de tection in urine sediment by light microscopyOrdered By: Staci Ortiz on 12-01-2022 Epithelial cells.squamous LM Ql (Urine sed) 5-9 [HPF] 0-2 [facility] Troponin I.cardiac [Mass/vol ume] in Serum or Plasma by Detection limit <= 0.01 ng/Ordered By: Staci Ortiz on 12-01-2022 Troponin I.cardiac DL <= 0.01 ng/mL [Mass/Vol] < 2.3 pg/mL 0.0-15.0 [facility] Urea nitrogen [Mass/volume] in Serum or PlasmaOrdered By: Staci Ortiz on 12-01-2022 Urea nitrogen [Mass/Vol] 9 mg/dL 7-25 [facility] Urine bacteria detection by automated methodOrdered By: Staci Ortiz on 12-01-2022 Bacteria Auto Ql (U) None seen None Seen [facility] Urine clarity by refractomet ry automatedOrdered By: Staci Ortiz on 12-01-2022 Clarity Refractometry automated (U) Cloudy Clear [facility] Urine glucose measurement by automated test strip (mass/volume)Ordered By: Staci Ortiz on 12-01-2022 Glucose Auto test strip (U) [Mass/Vol] Normal mg/dL Normal [facility] Urine hemoglobin detection b y automated test stripOrdered By: Staci Ortiz on 12-01-2022 Hemoglobin Auto test strip Ql (U) Negative Negative [facility] Urine leukocyte esterase det ection by automated test stripOrdered By: Staci Ortiz on 12-01-2022 Leukocyte esterase Auto test strip Ql (U) 1+ Negative [facility] Urobilinogen Auto test strip (U) [Mass/Vol]Ordered By: Staci Ortiz on 12-01-2022 Urobilinogen (U) [Mass/Vol] Normal mg/dL Normal [facility] WBC Auto (Bld) [#/Vol]Ordere d By: Staci Ortiz on 12-01-2022 WBC (Bld) [#/Vol] 12.1 10*3/uL 3.8-11.6 [facility] pH Auto test strip (U)Ordere d By: Staci Ortiz on 12-01-2022 pH (U) 6.5 [pH] 5.0-9.0 [facility] Amphetamine Screen Ql (U)Ord ered By: TELMA Smith on 11-20-2022 Amphetamines Ql (U) Negative Negative [facility] Barbiturates [Presence] in U rine by Screen methodOrdered By: TELMA Smith on 11-20-2022 Barbiturates Screen Ql (U) Negative Negative [facility] Benzodiazepines Screen Ql (U )Ordered By: TELMA Smith on 11-20-2022 Benzodiazepines Ql (U) Negative Negative [facility] Benzoylecgonine [Presence] i n Urine by Screen methodOrdered By: TELMA Smith on 11-20-2022 Benzoylecgonine Screen Ql (U) Negative Negative [facility] Bilirubin Test strip Ql (U)O rdered By: TELMA Smith on 11-20-2022 Bilirubin Ql (U) Negative Negative [facility] Color Auto (U)Ordered By: MD DESEAN Smith on 11-20-2022 Color (U) Yellow Yellow [facility] Ketones Auto test strip (U) [Mass/Vol]Ordered By: TELMA Smith on 11-20-2022 Ketones (U) [Mass/Vol] Trace Negative [facility] Nitrite Test strip Ql (U)Ord ered By: TELMA Smith on 11-20-2022 Nitrite Ql (U) Negative Negative [facility] Opiates [Presence] in Urine by Screen methodOrdered By: TELMA Smith on 11-20-2022 Opiates Screen Ql (U) Negative Negative [facility] Phencyclidine Screen Ql (U)O rdered By: TELMA Smith on 11-20-2022 Phencyclidine Ql (U) Negative Negative [facility] Comment on above: These are unconfirme d results and should not be used for legal purposes. Drug Cut-Off Concentration: AMPH 1000 ng/mL KELLY 200 ng/mL JOE 200 ng/mL COCM 300 ng/mL OP 300 ng/mL PCP 25 ng/mL Protein Auto test strip (U) [Mass/Vol]Ordered By: TELMA Smith on 11-20-2022 Protein (U) [Mass/Vol] Negative Negative [facility] Specific gravity Auto test s trip (U) [Rel density]Ordered By: TELMA Smith on 11-20-2022 Specific gravity (U) [Rel density] 1.025 1.001-1.03 0 [facility] Urine clarity by refractomet ry automatedOrdered By: TELMA Smith on 11-20-2022 Clarity Refractometry automated (U) Clear Clear [facility] Urine glucose measurement by automated test strip (mass/volume)Ordered By: SHELLIE Smith on 11-20-2022 Glucose Auto test strip (U) [Mass/Vol] Normal mg/dL Normal [facility] Urine hemoglobin detection b y automated test stripOrdered By: TELMA Smith on 11-20-2022 Hemoglobin Auto test strip Ql (U) Negative Negative [facility] Urine leukocyte esterase det ection by automated test stripOrdered By: TELMA Smith on 11-20-2022 Leukocyte esterase Auto test strip Ql (U) Negative Negative [facility] Urobilinogen Auto test strip (U) [Mass/Vol]Ordered By: TELMA Smith on 11-20-2022 Urobilinogen (U) [Mass/Vol] Normal mg/dL Normal [facility] pH Auto test strip (U)Ordere d By: TELMA Smith on 11-20-2022 pH (U) 6.5 [pH] 5.0-9.0 [facility] Amphetamine Screen Ql (U)Ord ered By: MARY KAY CANTU on 11-19-2022 Amphetamines Ql (U) Negative Negative [facility] Barbiturates [Presence] in U rine by Screen methodOrdered By: MARY KAY CANTU on 11-19-2022 Barbiturates Screen Ql (U) Negative Negative [facility] Benzodiazepines Screen Ql (U )Ordered By: MARY KAY CANTU on 11-19-2022 Benzodiazepines Ql (U) Negative Negative [facility] Benzoylecgonine [Presence] i n Urine by Screen methodOrdered By: MARY KAY CANTU on 11-19-2022 Benzoylecgonine Screen Ql (U) Negative Negative [facility] Bilirubin Test strip Ql (U)O rdered By: MARY KAY CANTU on 11-19-2022 Bilirubin Ql (U) Negative Negative [facility] Color Auto (U)Ordered By: LJ CANTU on 11-19-2022 Color (U) Yellow Yellow [facility] fibronectinOrdered By: MARY KAY CANTU on 11-19-2022 Fibronectin. (Vag fld) [Mass/Vol] Positive Negative [facility] Ketones Auto test strip (U) [Mass/Vol]Ordered By: MARY KAY CANTU on 11-19-2022 Ketones (U) [Mass/Vol] Trace Negative [facility] Nitrite Test strip Ql (U)Ord ered By: MARY KAY CANTU on 11-19-2022 Nitrite Ql (U) Negative Negative [facility] Opiates [Presence] in Urine by Screen methodOrdered By: MARY KAY CANTU on 11-19-2022 Opiates Screen Ql (U) Negative Negative [facility] Phencyclidine Screen Ql (U)O rdered By: MARY KAY CANTU on 11-19-2022 Phencyclidine Ql (U) Negative Negative [facility] Comment on above: These are unconfirme d results and should not be used for legal purposes. Drug Cut-Off Concentration: AMPH 1000 ng/mL KELLY 200 ng/mL JOE 200 ng/mL COCM 300 ng/mL OP 300 ng/mL PCP 25 ng/mL Protein Auto test strip (U) [Mass/Vol]Ordered By: MARY KAY CANTU on 11-19-2022 Protein (U) [Mass/Vol] Negative Negative [facility] Specific gravity Auto test s trip (U) [Rel density]Ordered By: MARY KAY CANTU on 11-19-2022 Specific gravity (U) [Rel density] 1.017 1.001-1.03 0 [facility] Urine clarity by refractomet ry automatedOrdered By: MARY KAY CANTU on 11-19-2022 Clarity Refractometry automated (U) Clear Clear [facility] Urine glucose measurement by automated test strip (mass/volume)Ordered By: MARY KAY CANTU on 11-19-2022 Glucose Auto test strip (U) [Mass/Vol] Normal mg/dL Normal [facility] Urine hemoglobin detection b y automated test stripOrdered By: MARY KAY CANTU on 11-19-2022 Hemoglobin Auto test strip Ql (U) Negative Negative [facility] Urine leukocyte esterase det ection by automated test stripOrdered By: MARY KAY CANTU on 11-19-2022 Leukocyte esterase Auto test strip Ql (U) Negative Negative [facility] Urobilinogen Auto test strip (U) [Mass/Vol]Ordered By: MARY KAY CANTU on 11-19-2022 Urobilinogen (U) [Mass/Vol] Normal mg/dL Normal [facility] pH Auto test strip (U)Ordere d By: MARY KAY CANTU on 11-19-2022 pH (U) 7.5 [pH] 5.0-9.0 [facility] US PREG TVon 07-14-2022 US [...] PETRA SALCIDO Date: 2022-07-14 00:14 Normal [facility] AMYLASEon 07-13-2022 Amylase [Catalytic activity/Vol] 43 U/L Normal 25-115 [facility] Comment on above: Performed By: #### C BC #### [facility] [address] [place] [address] Dr. Moris Winter CBC AUTO DIFFon 07-13-2022 BASO # 0.0 103/ul Normal 0.0-0.1 [facility] Comment on above: Performed By: #### C BC #### [facility] [address] [place] [address] Dr. Moris Winter Basophils/100 WBC (Bld) 0.2 % Normal 0.2-2.0 [facility] Comment on above: Performed By: #### C BC #### [facility] [address] [place] [address] Dr. Moris Winter EO # 0.1 103/ul Normal 0.0-0.7 [facility] Comment on above: Performed By: #### C BC #### [facility] [address] [place] [address] Dr. Moris Winter Eosinophils/100 WBC (Bld) 1.2 % Normal 0.9-7.0 [facility] Comment on above: Performed By: #### C BC #### [facility] [address] [place] [address] Dr. Moris Winter Erythrocyte distribution width (RBC) [Ratio] 13.8 % Normal 11.0-15.0 [facility] Comment on above: Performed By: #### C BC #### [facility] [address] [place] [address] Dr. Moris Winter Hematocrit (Bld) [Volume fraction] 36.6 % Normal 36.0-48.0 [facility] Comment on above: Performed By: #### C BC #### [facility] [address] [place] [address] Dr. Moris Winter Hemoglobin (Bld) [Mass/Vol] 12.3 g/dL Normal 12.0-16.0 [facility] Comment on above: Performed By: #### C BC #### [facility] [address] [place] [address] Dr. Moris Winter IG # 0.03 10e3/ul Normal 0.00-0.03 [facility] Comment on above: Performed By: #### C BC #### [facility] [address] [place] [address] Dr. Moris Winter IG % 0.3 % Normal 0.0-0.5 [facility] Comment on above: Performed By: #### C BC #### [facility] [address] [place] [address] Dr. Moris Winter LYMPH # 2.1 103/ul Normal 1.2-3.8 [facility] Comment on above: Performed By: #### C BC #### [facility] [address] [place] [address] Dr. Moris Winter Lymphocytes/100 WBC (Bld) 24.3 % Normal 20.5-60.0 [facility] Comment on above: Performed By: #### C BC #### [facility] [address] [place] [address] Dr. Moris Winter MANUAL DIFF REQ NO Normal [facility] Comment on above: Performed By: #### C BC #### [facility] [address] [place] [address] Dr. Moris Winter MCH (RBC) [Entitic mass] 27.5 pg Normal 26.7-34.0 [facility] Comment on above: Performed By: #### C BC #### [facility] [address] [place] [address] Dr. Moris Winter MCHC (RBC) [Mass/Vol] 33.6 g/dL Normal 29.9-35.2 [facility] Comment on above: Performed By: #### C BC #### [facility] [address] [place] [address] Dr. Moris Winter MCV (RBC) [Entitic vol] 81.7 fL Normal 81.0-99.0 [facility] Comment on above: Performed By: #### C BC #### [facility] [address] [place] [address] Dr. Moris Winter MONO # 0.7 103/ul Normal 0.3-0.8 [facility] Comment on above: Performed By: #### C BC #### [facility] [address] [place] [address] Dr. Moris Winter Monocytes/100 WBC (Bld) 7.8 % Normal 1.7-12.0 [facility] Comment on above: Performed By: #### C BC #### [facility] [address] [place] [address] Dr. Moris Winter NEUT # 5.8 103/ul Normal 1.4-6.5 [facility] Comment on above: Performed By: #### C BC #### [facility] [address] [place] [address] Dr. Moris Winter Neutrophils/100 WBC (Bld) 66.2 % Normal 43.0-75.0 [facility] Comment on above: Performed By: #### C BC #### [facility] [address] [place] [address] Dr. Moris Winter Platelet mean volume (Bld) [Entitic vol] 10.2 fL Normal 9.5-13.5 [facility] Comment on above: Performed By: #### C BC #### [facility] [address] [place] [address] Dr. Moris Winter PLT 301 103/ul Normal 150-450 [facility] Comment on above: Performed By: #### C BC #### [facility] [address] [place] [address] Dr. Moris Winter RBC 4.48 106/ul Normal 4.20-5.40 [facility] Comment on above: Performed By: #### C BC #### [facility] [address] [place] [address] Dr. Moris Winter WBC 8.7 103/ul Normal 4.0-11.0 [facility] Comment on above: Performed By: #### C BC #### [facility] [address] [place] [address] Dr. Moris Winter ER URINE PROFILEon 3 Bilirubin Ql (U) Negative Normal NEGATIVE [facility] Comment on above: Performed By: #### P REGU #### [facility] [address] [place] [address] Dr. Moris Winter Clarity (U) CLEAR Normal CLEAR [facility] Comment on above: Performed By: #### P REGU #### [facility] [address] [place] [address] Dr. Moris Winter Color (U) LT. YELLOW Normal YELLOW [facility] Comment on above: Performed By: #### P REGU #### [facility] [address] [place] [address] Dr. Moris Winter ERUABNER A micrscopic examina tion will be performed if indicated. Normal [facility] Comment on above: Performed By: #### P REGU #### [facility] [address] [place] [address] Dr. Moris Winter Glucose Ql (U) Negative Normal NEGATIVE [facility] Comment on above: Performed By: #### P REGU #### [facility] [address] [place] [address] Dr. Moris Winter Hemoglobin Ql (U) Negative Normal NEGATIVE [facility] Comment on above: Performed By: #### P REGU #### [facility] [address] [place] [address] Dr. Moris Winter Ketones Ql (U) TRACE Abnormal NEGATIVE [facility] Comment on above: Performed By: #### P REGU #### [facility] [address] [place] [address] Dr. Moris Winter LEUKOCYTES TRACE Abnormal NEGATIVE [facility] Comment on above: Performed By: #### P REGU #### [facility] [address] [place] [address] Dr. Moris Winter Nitrite Ql (U) Negative Normal NEGATIVE [facility] Comment on above: Performed By: #### P REGU #### [facility] [address] [place] [address] Dr. Moris Winter pH (U) 7.0 [pH] Normal 5-9 [facility] Comment on above: Performed By: #### P REGU #### [facility] [address] [place] [address] Dr. Moris Winter SPEC GRAVITY 1.020 Normal 1.005-<=1. 025 [facility] Comment on above: Performed By: #### P REGU #### [facility] [address] [place] [address] Dr. Moris Winter UA PROTEIN Negative Normal NEGATIVE/ TRACE [facility] Comment on above: Performed By: #### P REGU #### [facility] [address] [place] [address] Dr. Moris Winter UR MICRO IND INDICATED Normal [facility] Comment on above: Performed By: #### P REGU #### [facility] [address] [place] [address] Dr. Moris Winter Urobilinogen Qn (U) 0.2 {Marcin'U}/dL Normal 0.2 - 1. 0 [facility] Comment on above: Performed By: #### P REGU #### [facility] [address] [place] [address] Dr. Moris Winter LIPASEon 07-13-2022 Lipase [Catalytic activity/Vol] 204.0 U/L Normal 73.0-393.0 [facility] Comment on above: Performed By: #### C BC #### [facility] [address] [place] [address] Dr. Moris Winter PREG QUANT HCGon 07-13-2022 HCG QUANT 1455 mIU/mL Normal [facility] Comment on above: Performed By: #### P REGU #### [facility] [address] [place] [address] Dr. Moris Winter HCG RANGE SEE BELOW Normal [facility] Comment on above: Result Comment: 5-50 0.2-1 WEEK 50-500 1-2 WEEKS 100-5,000 2-3 WEEKS 500-10,000 3-4 WEEKS 1,000-50,000 4-5 WEEKS 10,000-100,000 5-6 WEEKS 15,000-200,000 6-8 WEEKS 10,000-100,000 2-3 MONTHS Performed By: #### P REGU #### [facility] [address] [place] [address] Dr. Moris Winter URon 07-13-2022 , QUAL Positive Abnormal NEGATIVE [facility] Comment on above: Performed By: #### P REGU #### [facility] [address] [place] [address] Dr. Moris Winter PROF 14(COMP METB)on 023 Albumin [Mass/Vol] 3.3 g/dL Critically low 3.4-5.0 [facility] Comment on above: Performed By: #### C BC #### [facility] [address] [place] [address] Dr. Moris Winter Albumin/Globulin [Mass ratio] 0.7 {ratio} Normal [facility] Comment on above: Performed By: #### C BC #### [facility] [address] [place] [address] Dr. Moris Winter ALP [Catalytic activity/Vol] 86 U/L Normal 46-116 [facility] Comment on above: Performed By: #### C BC #### [facility] [address] [place] [address] Dr. Moris Winter ALT [Catalytic activity/Vol] 16 U/L Normal 14-59 [facility] Comment on above: Performed By: #### C BC #### [facility] [address] [place] [address] Dr. Moris Winter Anion gap [Moles/Vol] 14.9 mmol/L Normal [facility] Comment on above: Performed By: #### C BC #### [facility] [address] [place] [address] Dr. Moris Winter AST [Catalytic activity/Vol] 12 U/L Critically low 15-37 [facility] Comment on above: Performed By: #### C BC #### [facility] [address] [place] [address] Dr. Moris Winter Bilirubin [Mass/Vol] 0.1 mg/dL Critically low 0.2-1.0 [facility] Comment on above: Performed By: #### C BC #### [facility] [address] [place] [address] Dr. Moris Winter Calcium [Mass/Vol] 9.3 mg/dL Normal 8.5-10.1 [facility] Comment on above: Performed By: #### C BC #### [facility] [address] [place] [address] Dr. Moris Winter Chloride [Moles/Vol] 103 mmol/L Normal 98-107 [facility] Comment on above: Performed By: #### C BC #### [facility] [address] [place] [address] Dr. Moris Winter CO2 [Moles/Vol] 25.4 mmol/L Normal 21.0-32.0 [facility] Comment on above: Performed By: #### C BC #### [facility] [address] [place] [address] Dr. Moris Winter Creatinine [Mass/Vol] 0.80 mg/dL Normal 0.55-1.02 [facility] Comment on above: Performed By: #### C BC #### [facility] [address] [place] [address] Dr. Moris Winter EGFR-AF KOSOVAN >60 Normal >=60 [facility] Comment on above: Performed By: #### C BC #### [facility] [address] [place] [address] Dr. Moris Winter EGFR-NON AF KOSOVAN >60 Normal >=60 [facility] Comment on above: Performed By: #### C BC #### [facility] [address] [place] [address] Dr. Moris Winter Globulin (S) [Mass/Vol] 4.6 g/dL Normal [facility] Comment on above: Performed By: #### C BC #### [facility] [address] [place] [address] Dr. Moris Winter Glucose [Mass/Vol] 111 mg/dL Critically high 74-106 [facility] Comment on above: Performed By: #### C BC #### [facility] [address] [place] [address] Dr. Moris Winter Potassium [Moles/Vol] 3.3 mmol/L Critically low 3.5-5.1 [facility] Comment on above: Performed By: #### C BC #### [facility] [address] [place] [address] Dr. Moris Winter Protein [Mass/Vol] 7.9 g/dL Normal 6.4-8.2 [facility] Comment on above: Performed By: #### C BC #### [facility] [address] [place] [address] Dr. Moris Winter Sodium [Moles/Vol] 140 mmol/L Normal 136-145 [facility] Comment on above: Performed By: #### C BC #### [facility] [address] [place] [address] Dr. Moris Winter Urea nitrogen [Mass/Vol] 10.0 mg/dL Normal 7.0-18.0 [facility] Comment on above: Performed By: #### C BC #### [facility] [address] [place] [address] Dr. Moris Winter Urea nitrogen/Creatinine [Mass ratio] 12.5 mg/mg Normal [facility] Comment on above: Performed By: #### C BC #### [facility] [address] [place] [address] Dr. Moris Winter URINE MICROSCOPIC ONLYon BACTERIA TRACE Abnormal NONE SEEN [facility] Comment on above: Performed By: #### P REGU #### [facility] [address] [place] [address] Dr. Moris Winter Bacteria identified Cx Nom (U) NOT INDICATED Normal [facility] Comment on above: Performed By: #### P REGU #### [facility] [address] [place] [address] Dr. Moris Winter CAST NONE SEEN Normal NONE SEEN [facility] Comment on above: Performed By: #### P REGU #### [facility] [address] [place] [address] Dr. Moris Winter Crystals LM Nom (Urine sed) NONE SEEN Normal NONE SEEN [facility] Comment on above: Performed By: #### P REGU #### [facility] [address] [address] [address] Moris Winter Epithelial cells LM Ql (Urine sed) FEW Abnormal NONE SEEN /RARE [facility] Comment on above: Performed By: #### P REGU #### [facility] [address] [address] [address] Moris Winter MUCOUS NONE SEEN Normal NONE SEEN [facility] Comment on above: Performed By: #### P REGU #### [facility] [address] [address] [address] Moris Winter RBC 0-2 Normal 0-2 [facility] Comment on above: Performed By: #### P REGU #### [facility] [address] [place] [address] Dr. Moris Winter WBC 2-5 Abnormal NONE SEEN [facility] Comment on above: Performed By: #### P REGU #### [facility] [address] [place] [address] Dr. Moris Winter Cholesterol [Mass/volume] in Serum or PlasmaOrdered By: Nataly Toure on 06-16-2022 Cholesterol [Mass/Vol] 189 mg/dL 140-[address] [facility] Comment on above: Chol less than 200 m g/dl low riskChol 201-239 mg/dl borderline riskChol 240 mg/dl and greater high risk Cholesterol in LDL Calc [Mas s/Vol]Ordered By: Nataly Toure on 06-16-2022 Cholesterol in LDL [Mass/Vol] 84 mg/dL 0-100 [facility] Comment on above: LDL ATP III CLASSIFI CATIONLDL less than 100 mg/dL OptimalLDL 100-129 mg/dL Near or above optimalLDL 130-159 mg/dL Borderline highLDL 160-189 mg/dL HighLDL greater than 189 mg/dL Very high Cholesterol in VLDL Calc [Ma ss/Vol]Ordered By: Nataly Toure on 06-16-2022 Cholesterol in VLDL [Mass/Vol] 54 mg/dL [facility] Serum or plasma high density lipoprotein (HDL) cholesterol measurementOrdered By: Nataly Toure on 06-16-2022 Cholesterol in HDL [Mass/Vol] 50 mg/dL 35-85 [facility] Comment on above: HDL CHOL ATP-III CLA SSIFICATION Cardiovascular RiskHDL > or equal to 60 mg/dL LOWHDL < 40 mg/dL HIGH Serum or plasma total choles terol/high density lipoprotein (HDL) cholesterol mass ratOrdered By: Nataly Toure on 06-16-2022 Cholesterol.total/Chol esterol in HDL [Mass ratio] 3.8 {ratio} <5.0 [facility] Triglyceride [Mass/volume] i n Serum or PlasmaOrdered By: Nataly Toure on 06-16-2022 Triglyceride [Mass/Vol] 273 mg/dL 0-149 [facility] Comment on above: TRIG ATP III CLASSIF ICATIONTRIG less than 150 mg/dL NormalTRIG 150-199 mg/dL Borderline highTRIG 200-500 mg/dL High TRIG greater than 500 mg/dL Very highStandard traceable to the Center for Disease Conrtrol and Prevention (CDC) test method. Alanine aminotransferase [En zymatic activity/volume] in Serum or PlasmaOrdered By: Nataly Toure on 06-04-2022 ALT [Catalytic activity/Vol] 7 U/L 7-52 [facility] Albumin [Mass/volume] in Ser um or Plasma by Bromocresol green (BCG) dye binding methoOrdered By: Nataly Toure on 06-04-2022 Albumin BCG dye [Mass/Vol] 3.8 g/dL 3.5-5.7 [facility] Alkaline phosphatase [Enzyma tic activity/volume] in Serum or PlasmaOrdered By: Nataly Toure on 06-04-2022 ALP [Catalytic activity/Vol] 78 U/L 34-104 [facility] Amylase [Enzymatic activity/ volume] in Serum or PlasmaOrdered By: Nataly Toure on 06-04-2022 Amylase [Catalytic activity/Vol] 29 U/L 29-103 [facility] Aspartate aminotransferase [ Enzymatic activity/volume] in Serum or PlasmaOrdered By: Nataly Toure on 06-04-2022 AST [Catalytic activity/Vol] 10 U/L 13-39 [facility] Basophils Auto (Bld) [#/Vol] Ordered By: Nataly Toure on 06-04-2022 Basophils (Bld) [#/Vol] 0.1 10*3/uL 0.0-0.2 [facility] Basophils/100 WBC Auto (Bld) Ordered By: Nataly Toure on 06-04-2022 Basophils/100 WBC (Bld) 1.4 % . [facility] Bilirubin.total [Mass/volume ] in Serum or PlasmaOrdered By: Nataly Toure on 06-04-2022 Bilirubin [Mass/Vol] 0.3 mg/dL 0.3-1.0 [facility] Calcium [Mass/volume] in Ser um or PlasmaOrdered By: Nataly Toure on 06-04-2022 Calcium [Mass/Vol] 9.3 mg/dL 8.6-10.3 [facility] Carbon dioxide, total [Moles /volume] in Serum or PlasmaOrdered By: Nataly Toure on 06-04-2022 CO2 [Moles/Vol] 29.6 mmol/L 21.0-31.0 [facility] Chloride [Moles/volume] in S rosa or PlasmaOrdered By: Nataly Toure on 06-04-2022 Chloride [Moles/Vol] 99 mmol/L 98-107 [facility] Creatinine [Mass/volume] in Serum or PlasmaOrdered By: Nataly Toure on 06-04-2022 Creatinine [Mass/Vol] 0.69 mg/dL 0.60-1.20 [facility] Eosinophils Auto (Bld) [#/Vo l]Ordered By: Nataly Toure on 06-04-2022 Eosinophils (Bld) [#/Vol] 0.2 10*3/uL 0.0-0.45 [facility] Eosinophils/100 WBC Auto (Bl d)Ordered By: Nataly Toure on 06-04-2022 Eosinophils/100 WBC (Bld) 1.8 % . [facility] Erythrocyte distribution wid th Auto (RBC) [Ratio]Ordered By: Nataly Toure on 06-04-2022 Erythrocyte distribution width (RBC) [Ratio] 14.6 % 11.9-15.3 [facility] Ferritin [Mass/volume] in Se rum or PlasmaOrdered By: Nataly Toure on 06-04-2022 Ferritin [Mass/Vol] 12.7 ng/mL 11.0-306.8 [facility] Globulin Calc (S) [Mass/Vol] Ordered By: Nataly Toure on 06-04-2022 Globulin (S) [Mass/Vol] 3.6 g/dL [facility] Glucose [Mass/volume] in Ser um or PlasmaOrdered By: Nataly Toure on 06-04-2022 Glucose [Mass/Vol] 103 mg/dL 70-100 [facility] Comment on above: ADA recommended refe rence rangeRandom Glucose Reference Range is dependent on time and content of last meal. Glucose of more than 200 mg/dL in a nonstressed, ambulatory subject supports the diagnosis of Diabetes Mellitus. Hematocrit Auto (Bld) [Volum e fraction]Ordered By: Nataly Toure on 06-04-2022 Hematocrit (Bld) [Volume fraction] 38.2 % 34.0-46.4 [facility] Hemoglobin [Mass/volume] in BloodOrdered By: Nataly Toure on 06-04-2022 Hemoglobin (Bld) [Mass/Vol] 12.7 g/dL 11.8-15.4 [facility] Leukocytes [#/volume] correc kee for nucleated erythrocytes in Blood by Automated counOrdered By: Nataly Toure on 06-04-2022 WBC corrected for nucl RBC Auto (Bld) [#/Vol] 8.7 10*3/uL 3.8-11.6 [facility] Lipase [Enzymatic activity/v olume] in Serum or PlasmaOrdered By: Nataly Toure on 06-04-2022 Lipase [Catalytic activity/Vol] 38.0 U/L 11.0-82.0 [facility] Lymphocytes Auto (Bld) [#/Vo l]Ordered By: Nataly Toure on 06-04-2022 Lymphocytes (Bld) [#/Vol] 1.7 10*3/uL 1.00-4.8 [facility] Lymphocytes/100 WBC Auto (Bl d)Ordered By: Nataly Toure on 06-04-2022 Lymphocytes/100 WBC (Bld) 19.7 % . [facility] MCH Auto (RBC) [Entitic mass ]Ordered By: Nataly Toure on 06-04-2022 MCH (RBC) [Entitic mass] 26.8 pg 24.7-34.3 [facility] MCHC Auto (RBC) [Mass/Vol]Or dered By: Nataly Toure on 06-04-2022 MCHC (RBC) [Mass/Vol] 33.2 g/dL 32.0-35.0 [facility] MCV Auto (RBC) [Entitic vol] Ordered By: Nataly Toure on 06-04-2022 MCV (RBC) [Entitic vol] 80.7 fL 80-100 [facility] Monocytes Auto (Bld) [#/Vol] Ordered By: Nataly Toure on 06-04-2022 Monocytes (Bld) [#/Vol] 0.5 10*3/uL 0.0-0.8 [facility] Monocytes/100 WBC Auto (Bld) Ordered By: Nataly Toure on 06-04-2022 Monocytes/100 WBC (Bld) 6.1 % . [facility] Neutrophils Auto (Bld) [#/Vo l]Ordered By: Nataly Toure on 06-04-2022 Neutrophils (Bld) [#/Vol] 6.2 10*3/uL 1.8-7.7 [facility] Neutrophils/100 WBC Auto (Bl d)Ordered By: Nataly Toure on 06-04-2022 Neutrophils/100 WBC (Bld) 71.0 % . [facility] No Panel InformationOrdered By: Nataly Toure on 06-04-2022 Estimated GFR (CKD-EPI) > 60.0 mL/Min [facility] Creatinine Clearance (Chem N/A [facility] Nucleated erythrocytes [Pres ence] in Blood by Automated countOrdered By: Nataly Toure on 06-04-2022 Nucleated RBC Auto Ql (Bld) 0.2 /100{WBC} 0-0.5 [facility] Platelet mean volume Auto (B ld) [Entitic vol]Ordered By: Nataly Toure on 06-04-2022 Platelet mean volume (Bld) [Entitic vol] 10.2 fL 6.3-10.7 [facility] Platelets Auto (Bld) [#/Vol] Ordered By: Nataly Toure on 06-04-2022 Platelets (Bld) [#/Vol] 245 10*3/uL 150-450 [facility] Potassium [Moles/volume] in Serum or PlasmaOrdered By: Nataly Toure on 06-04-2022 Potassium [Moles/Vol] 4.5 mmol/L 3.5-5.1 [facility] Protein [Mass/volume] in Ser um or PlasmaOrdered By: Nataly Toure on 06-04-2022 Protein [Mass/Vol] 7.4 g/dL 6.4-8.9 [facility] RBC Auto (Bld) [#/Vol]Ordere d By: Nataly Toure on 06-04-2022 RBC (Bld) [#/Vol] 4.73 10*6/uL 3.60-5.00 [facility] Serum or plasma albumin/glob ulin mass ratioOrdered By: Nataly Toure on 06-04-2022 Albumin/Globulin [Mass ratio] 1.1 {ratio} [facility] Serum or plasma anion gap de terminationOrdered By: Nataly Toure on 06-04-2022 Anion gap [Moles/Vol] 10.9 mmol/L 6.0-15.[address] [facility] Serum or plasma insulin nikita urement (units/volume)Ordered By: Nataly Toure on 06-04-2022 Insulin Qn 128.0 u[iU]/mL 2.6-24.9 [facility] Comment on above: Performed at: - [email or web address] [id number] Director: Sam Lopez PhD, Phone: [phone] Sodium [Moles/volume] in Ser um or PlasmaOrdered By: Nataly Toure on 06-04-2022 Sodium [Moles/Vol] 135 mmol/L 136-145 [facility] Urea nitrogen [Mass/volume] in Serum or PlasmaOrdered By: Nataly Toure on 06-04-2022 Urea nitrogen [Mass/Vol] 9 mg/dL 7-25 [facility] WBC Auto (Bld) [#/Vol]Ordere d By: Nataly Toure on 06-04-2022 WBC (Bld) [#/Vol] 8.7 10*3/uL 3.8-11.6 [facility] AMYLASEon 06-03-2022 Amylase [Catalytic activity/Vol] 37 U/L Normal 25-115 [facility] Comment on above: Performed By: #### L IPA, CMP, KIM #### [facility] [address] [place] [address] Dr. Moris Winter CBC AUTO DIFFon 06-03-2022 BASO # 0.0 103/ul Normal 0.0-0.1 [facility] Comment on above: Performed By: #### C BC #### [facility] [address] [place] [address] Dr. Moris Winter Basophils/100 WBC (Bld) 0.1 % Critically low 0.2-2.0 [facility] Comment on above: Performed By: #### C BC #### [facility] [address] [address] [address] Moris Winter EO # 0.1 103/ul Normal 0.0-0.7 [facility] Comment on above: Performed By: #### C BC #### [facility] [address] [place] [address] Dr. Moris Winter Eosinophils/100 WBC (Bld) 1.6 % Normal 0.9-7.0 [facility] Comment on above: Performed By: #### C BC #### [facility] [address] [place] [address] Dr. Moris Winter Erythrocyte distribution width (RBC) [Ratio] 13.5 % Normal 11.0-15.0 [facility] Comment on above: Performed By: #### C BC #### [facility] [address] [place] [address] Dr. Moris Winter Hematocrit (Bld) [Volume fraction] 36.3 % Normal 36.0-48.0 [facility] Comment on above: Performed By: #### C BC #### [facility] [address] [place] [address] Dr. Moris Winter Hemoglobin (Bld) [Mass/Vol] 11.8 g/dL Critically low 12.0-16.0 [facility] Comment on above: Performed By: #### C BC #### [facility] [address] [place] [address] Dr. Moris Winter IG # 0.03 10e3/ul Normal 0.00-0.03 [facility] Comment on above: Performed By: #### C BC #### [facility] [address] [place] [address] Dr. Moris Winter IG % 0.4 % Normal 0.0-0.5 [facility] Comment on above: Performed By: #### C BC #### [facility] [address] [place] [address] Dr. Moris Winter LYMPH # 2.5 103/ul Normal 1.2-3.8 [facility] Comment on above: Performed By: #### C BC #### [facility] [address] [place] [address] Dr. Moris Winter Lymphocytes/100 WBC (Bld) 33.2 % Normal 20.5-60.0 [facility] Comment on above: Performed By: #### C BC #### [facility] [address] [place] [address] Dr. Moris Winter MANUAL DIFF REQ NO Normal [facility] Comment on above: Performed By: #### C BC #### [facility] [address] [place] [address] Dr. Moris Winter MCH (RBC) [Entitic mass] 26.2 pg Critically low 26.7-34.0 [facility] Comment on above: Performed By: #### C BC #### [facility] [address] [place] [address] Dr. Moris Winter MCHC (RBC) [Mass/Vol] 32.5 g/dL Normal 29.9-35.2 [facility] Comment on above: Performed By: #### C BC #### [facility] [address] [place] [address] Dr. Moris Winter MCV (RBC) [Entitic vol] 80.7 fL Critically low 81.0-99.0 [facility] Comment on above: Performed By: #### C BC #### [facility] [address] [place] [address] Dr. Moris Winter MONO # 0.7 103/ul Normal 0.3-0.8 [facility] Comment on above: Performed By: #### C BC #### [facility] [address] [place] [address] Dr. Moris Winter Monocytes/100 WBC (Bld) 9.9 % Normal 1.7-12.0 [facility] Comment on above: Performed By: #### C BC #### [facility] [address] [place] [address] Dr. Moris Winter NEUT # 4.1 103/ul Normal 1.4-6.5 [facility] Comment on above: Performed By: #### C BC #### [facility] [address] [place] [address] Dr. Moris Winter Neutrophils/100 WBC (Bld) 54.8 % Normal 43.0-75.0 [facility] Comment on above: Performed By: #### C BC #### [facility] [address] [place] [address] Dr. Moris Winter Platelet mean volume (Bld) [Entitic vol] 10.7 fL Normal 9.5-13.5 [facility] Comment on above: Performed By: #### C BC #### [facility] [address] [place] [address] Dr. Moris Winter PLT 248 103/ul Normal 150-450 [facility] Comment on above: Performed By: #### C BC #### [facility] [address] [place] [address] Dr. Moris Winter RBC 4.50 106/ul Normal 4.20-5.40 [facility] Comment on above: Performed By: #### C BC #### [facility] [address] [place] [address] Dr. Moris Winter WBC 7.5 103/ul Normal 4.0-11.0 [facility] Comment on above: Performed By: #### C BC #### [facility] [address] [place], [place] [address] ABD/PELV W CONon [...] NANCI COULTER Date: 2022-06-03 02:19 Normal [facility] ER URINE PROFILEon 3 Bilirubin Ql (U) Negative Normal NEGATIVE [facility] Comment on above: Performed By: #### C BC #### [facility] [address] [place] [address] [address] Moris Winter Clarity (U) CLEAR Normal CLEAR [facility] Comment on above: Performed By: #### C BC #### [facility] [address] [place] [address] Dr. Moris Winter Color (U) LT. YELLOW Normal YELLOW [facility] Comment on above: Performed By: #### C BC #### [facility] [address] [place] [address] Dr. Moris Winter ERUAHD A micrscopic examina tion will be performed if indicated. Normal [facility] Comment on above: Performed By: #### C BC #### [facility] [address] [place] [address] Dr. Moris Winter Glucose Ql (U) Negative Normal NEGATIVE [facility] Comment on above: Performed By: #### C BC #### [facility] [address] [place] [address] Dr. Moris Winter Hemoglobin Ql (U) Negative Normal NEGATIVE [facility] Comment on above: Performed By: #### C BC #### [facility] [address] [place] [address] Dr. Moris Winter Ketones Ql (U) Negative Normal NEGATIVE [facility] Comment on above: Performed By: #### C BC #### [facility] [address] [place] [address] Dr. Moris Winter LEUKOCYTES Negative Normal NEGATIVE [facility] Comment on above: Performed By: #### C BC #### [facility] [address] [place] [address] Dr. Moris Winter Nitrite Ql (U) Negative Normal NEGATIVE [facility] Comment on above: Performed By: #### C BC #### [facility] [address] [place] [address] Dr. Moris Winter pH (U) 7.0 [pH] Normal 5-9 [facility] Comment on above: Performed By: #### C BC #### [facility] [address] [place] [address] Dr. Moris Winter SPEC GRAVITY 1.015 Normal 1.005-<=1. 025 [facility] Comment on above: Performed By: #### C BC #### [facility] [address] [place] [address] Dr. Moris Winter UA PROTEIN Negative Normal NEGATIVE/ TRACE [facility] Comment on above: Performed By: #### C BC #### [facility] [address] [place] [address] Dr. Moris Winter UR MICRO IND NOT INDICATED Normal [facility] Comment on above: Performed By: #### C BC #### [facility] [address] [place] [address] Dr. Moris Winter Urobilinogen Qn (U) 1.0 {Marcin'U}/dL Normal 0.2 - 1. 0 [facility] Comment on above: Performed By: #### C BC #### [facility] [address] [place] [address] Dr. Moris Winter LACTATE/LACTIC ACIDon 2022 Lactate [Moles/Vol] 1.0 mmol/L Normal 0.4-2.0 [facility] Comment on above: Performed By: #### L ACT #### [facility] [address] [place] [address] Dr. Moris Winter LIPASEon 06-03-2022 Lipase [Catalytic activity/Vol] 112.0 U/L Normal 73.0-393.0 [facility] Comment on above: Performed By: #### L IPA, CMP, KIM #### [facility] [address] [place] [address] Dr. Moris Winter URon 06-03-2022 , QUAL Negative Normal NEGATIVE [facility] Comment on above: Performed By: #### P REGU #### [facility] [address] [place] [address] Dr. Moris Winter PROF 14(COMP METB)on 023 Albumin [Mass/Vol] 2.9 g/dL Critically low 3.4-5.0 [facility] Comment on above: Performed By: #### L IPA, CMP, KIM #### [facility] [address] [place] [address] Dr. Moris Winter Albumin/Globulin [Mass ratio] 0.6 {ratio} Normal [facility] Comment on above: Performed By: #### L IPA, CMP, KIM #### [facility] [address] [place] [address] [address] Moris Winter ALP [Catalytic activity/Vol] 86 U/L Normal 46-116 [facility] Comment on above: Performed By: #### L IPA, CMP, KIM #### [facility] [address] [place] [address] [address] Moris Winter ALT [Catalytic activity/Vol] 14 U/L Normal 14-59 [facility] Comment on above: Performed By: #### L IPA, CMP, KIM #### [facility] [address] [place] [address] Dr. Morsi Winter Anion gap [Moles/Vol] 10.9 mmol/L Normal [facility] Comment on above: Performed By: #### L IPA, CMP, KIM #### [facility] [address] [place] [address] [address] Moris Winter AST [Catalytic activity/Vol] 12 U/L Critically low 15-37 [facility] Comment on above: Performed By: #### L IPA, CMP, KIM #### [facility] [address] [place] [address] Dr. Moris Winter Bilirubin [Mass/Vol] 0.2 mg/dL Normal 0.2-1.0 [facility] Comment on above: Performed By: #### L IPA, CMP, KIM #### [facility] [address] [place] [address] Dr. Moris Winter Calcium [Mass/Vol] 9.0 mg/dL Normal 8.5-10.1 [facility] Comment on above: Performed By: #### L IPA, CMP, KIM #### [facility] [address] [place] [address] Dr. Moris Winter Chloride [Moles/Vol] 102 mmol/L Normal 98-107 [facility] Comment on above: Performed By: #### L IPA, CMP, KIM #### [facility] [address] [place], [place] [id number] Dr. Moris Winter CO2 [Moles/Vol] 29.6 mmol/L Normal 21.0-32.0 [facility] Comment on above: Performed By: #### L IPA CMP, KIM #### [facility] [address] [place] [address] [address] Moris Winter Creatinine [Mass/Vol] 0.73 mg/dL Normal 0.55-1.02 [facility] Comment on above: Performed By: #### L IPA CMP, KIM #### [facility] [address] [place] [address] [address] Moris Winter EGFR-AF KOSOVAN >60 Normal >=60 [facility] Comment on above: Performed By: #### L IPA CMP, KIM #### [facility] [address] [place] [address] Dr. Moris Winter EGFR-NON AF KOSOVAN >60 Normal >=60 [facility] Comment on above: Performed By: #### L IPA CMP, KIM #### [facility] [address] [place] [address] Dr. Moris Winter Globulin (S) [Mass/Vol] 4.8 g/dL Normal [facility] Comment on above: Performed By: #### L IPA CMP, KIM #### [facility] [address] [place] [address] Dr. Moris Winter Glucose [Mass/Vol] 121 mg/dL Critically high 74-106 [facility] Comment on above: Performed By: #### L IPA CMP, KIM #### [facility] [address] [place] [address] [address] Moris Winter Potassium [Moles/Vol] 3.5 mmol/L Normal 3.5-5.1 [facility] Comment on above: Performed By: #### L IPA CMP, KIM #### [facility] [address] [place] [address] Dr. Moris Winter Protein [Mass/Vol] 7.7 g/dL Normal 6.4-8.2 [facility] Comment on above: Performed By: #### L IPA CMP, KIM #### [facility] [address] [place] [address] [address] Moris Winter Sodium [Moles/Vol] 139 mmol/L Normal 136-145 [facility] Comment on above: Performed By: #### L IPA, CMP, KIM #### [facility] [address] [place] [address] [address] Moris Winter Urea nitrogen [Mass/Vol] 11.0 mg/dL Normal 7.0-18.0 [facility] Comment on above: Performed By: #### L IPA, CMP, KIM #### [facility] [address] [place] [address] [address] Moris Winter Urea nitrogen/Creatinine [Mass ratio] 15.1 mg/mg Normal [facility] Comment on above: Performed By: #### L IPA, CMP, KIM #### [facility] [address] [place] [address] [address] Moris Winter Alanine aminotransferase [En zymatic activity/volume] in Serum or PlasmaOrdered By: Nataly Toure on 05-28-2022 ALT [Catalytic activity/Vol] 10 U/L 7-52 [facility] Albumin [Mass/volume] in Ser um or Plasma by Bromocresol green (BCG) dye binding methoOrdered By: Nataly Toure on 05-28-2022 Albumin BCG dye [Mass/Vol] 3.9 g/dL 3.5-5.7 [facility] Alkaline phosphatase [Enzyma tic activity/volume] in Serum or PlasmaOrdered By: Nataly Toure on 05-28-2022 ALP [Catalytic activity/Vol] 87 U/L 34-104 [facility] Aspartate aminotransferase [ Enzymatic activity/volume] in Serum or PlasmaOrdered By: Nataly Toure on 05-28-2022 AST [Catalytic activity/Vol] 11 U/L 13-39 [facility] Basophils Auto (Bld) [#/Vol] Ordered By: Nataly Toure on 05-28-2022 Basophils (Bld) [#/Vol] 0.0 10*3/uL 0.0-0.2 [facility] Basophils/100 WBC Auto (Bld) Ordered By: Nataly Toure on 05-28-2022 Basophils/100 WBC (Bld) 0.6 % . [facility] Bilirubin.total [Mass/volume ] in Serum or PlasmaOrdered By: Nataly Toure on 05-28-2022 Bilirubin [Mass/Vol] 0.4 mg/dL 0.3-1.0 [facility] Calcium [Mass/volume] in Ser um or PlasmaOrdered By: Nataly Toure on 05-28-2022 Calcium [Mass/Vol] 9.1 mg/dL 8.6-10.3 [facility] Carbon dioxide, total [Moles /volume] in Serum or PlasmaOrdered By: Nataly Toure on 05-28-2022 CO2 [Moles/Vol] 27.6 mmol/L 21.0-31.0 [facility] Chloride [Moles/volume] in S rosa or PlasmaOrdered By: Nataly Toure on 05-28-2022 Chloride [Moles/Vol] 102 mmol/L 98-107 [facility] Cholesterol [Mass/volume] in Serum or PlasmaOrdered By: Nataly Toure on 05-28-2022 Cholesterol [Mass/Vol] 269 mg/dL 140-[address] [facility] Comment on above: Chol less than 200 m g/dl low riskChol 201-239 mg/dl borderline riskChol 240 mg/dl and greater high risk Cholesterol in LDL Calc [Mas s/Vol]Ordered By: Nataly Toure on 05-28-2022 Cholesterol in LDL [Mass/Vol] TNP [facility] Comment on above: Test not performed Cholesterol in LDL [Mass/vol ume] in Serum or PlasmaOrdered By: Nataly Toure on 05-28-2022 Cholesterol in LDL [Mass/Vol] 82 mg/dL 0-100 [facility] Comment on above: LDL ATP III CLASSIFI CATIONLDL less than 100 mg/dL OptimalLDL 100-129 mg/dL Near or above optimalLDL 130-159 mg/dL Borderline highLDL 160-189 mg/dL HighLDL greater than 189 mg/dL Very high Cholesterol in VLDL Calc [Ma ss/Vol]Ordered By: Nataly Toure on 05-28-2022 Cholesterol in VLDL [Mass/Vol] 187 mg/dL [facility] Creatinine [Mass/volume] in Serum or PlasmaOrdered By: Nataly Toure on 05-28-2022 Creatinine [Mass/Vol] 0.68 mg/dL 0.60-1.20 [facility] Eosinophils Auto (Bld) [#/Vo l]Ordered By: Nataly Toure on 05-28-2022 Eosinophils (Bld) [#/Vol] 0.2 10*3/uL 0.0-0.45 [facility] Eosinophils/100 WBC Auto (Bl d)Ordered By: Nataly Toure on 05-28-2022 Eosinophils/100 WBC (Bld) 2.1 % . [facility] Erythrocyte distribution wid th Auto (RBC) [Ratio]Ordered By: Nataly Toure on 05-28-2022 Erythrocyte distribution width (RBC) [Ratio] 14.5 % 11.9-15.3 [facility] Free thyroxine indexOrdered By: Nataly Toure on 05-28-2022 Free T4 index Calc [Mass/Vol] 2.9 1.2-4.9 [facility] Globulin Calc (S) [Mass/Vol] Ordered By: Nataly Toure on 05-28-2022 Globulin (S) [Mass/Vol] 3.6 g/dL [facility] Glucose [Mass/volume] in Ser um or PlasmaOrdered By: Nataly Toure on 05-28-2022 Glucose [Mass/Vol] 95 mg/dL 70-100 [facility] Comment on above: ADA recommended refe [...] from glycated hemoglobin (Bld) [Mass/Vol] 111 mg/dL [facility] Hematocrit Auto (Bld) [Volum e fraction]Ordered By: Nataly Toure on 05-28-2022 Hematocrit (Bld) [Volume fraction] 38.2 % 34.0-46.4 [facility] Hemoglobin A1c percentageOrd ered By: Nataly Toure on 05-28-2022 HbA1c (Bld) [Mass fraction] 5.5 % 4.3-5.6 [facility] Comment on above: Increased risk for d iabetes: 5.7 - 6.4diabetes: >6.4glycemic control for adults with diabetes: <7.0 Hemoglobin [Mass/volume] in BloodOrdered By: Nataly Toure on 05-28-2022 Hemoglobin (Bld) [Mass/Vol] 12.9 g/dL 11.8-15.4 [facility] Iron [Mass/volume] in Serum or PlasmaOrdered By: Nataly Toure on 05-28-2022 Iron [Mass/Vol] 30 ug/dL 50-212 [facility] Iron binding capacity [Mass/ volume] in Serum or PlasmaOrdered By: Nataly Toure on 05-28-2022 Iron binding capacity [Mass/Vol] 449 ug/dL 255-450 [facility] Iron saturation [Mass Fracti on] in Serum or PlasmaOrdered By: Nataly Toure on 05-28-2022 Iron saturation [Mass fraction] 6.7 % 20-50 [facility] Leukocytes [#/volume] correc kee for nucleated erythrocytes in Blood by Automated counOrdered By: Nataly Toure on 05-28-2022 WBC corrected for nucl RBC Auto (Bld) [#/Vol] 7.3 10*3/uL 3.8-11.6 [facility] Lymphocytes Auto (Bld) [#/Vo l]Ordered By: Nataly Toure on 05-28-2022 Lymphocytes (Bld) [#/Vol] 1.9 10*3/uL 1.00-4.8 [facility] Lymphocytes/100 WBC Auto (Bl d)Ordered By: Nataly Toure on 05-28-2022 Lymphocytes/100 WBC (Bld) 26.6 % . [facility] MCH Auto (RBC) [Entitic mass ]Ordered By: Nataly Toure on 05-28-2022 MCH (RBC) [Entitic mass] 26.9 pg 24.7-34.3 [facility] MCHC Auto (RBC) [Mass/Vol]Or dered By: Nataly Toure on 05-28-2022 MCHC (RBC) [Mass/Vol] 33.8 g/dL 32.0-35.0 [facility] MCV Auto (RBC) [Entitic vol] Ordered By: Nataly Toure on 05-28-2022 MCV (RBC) [Entitic vol] 79.6 fL 80-100 [facility] Monocytes Auto (Bld) [#/Vol] Ordered By: Nataly Toure on 05-28-2022 Monocytes (Bld) [#/Vol] 0.6 10*3/uL 0.0-0.8 [facility] Monocytes/100 WBC Auto (Bld) Ordered By: Nataly Toure on 05-28-2022 Monocytes/100 WBC (Bld) 7.7 % . [facility] Neutrophils Auto (Bld) [#/Vo l]Ordered By: Nataly Toure on 05-28-2022 Neutrophils (Bld) [#/Vol] 4.6 10*3/uL 1.8-7.7 [facility] Neutrophils/100 WBC Auto (Bl d)Ordered By: Nataly Toure on 05-28-2022 Neutrophils/100 WBC (Bld) 63.0 % . [facility] No Panel InformationOrdered By: Nataly Toure on 05-28-2022 Estimated GFR (CKD-EPI) > 60.0 mL/Min [facility] Free Thyroxine (T4) Direct 10.8 ug/dL 4.5-12.0 [facility] Creatinine Clearance (Chem N/A [facility] Nucleated erythrocytes [Pres ence] in Blood by Automated countOrdered By: Nataly Toure on 05-28-2022 Nucleated RBC Auto Ql (Bld) 0.4 /100{WBC} 0-0.5 [facility] Platelet mean volume Auto (B ld) [Entitic vol]Ordered By: Nataly Toure on 05-28-2022 Platelet mean volume (Bld) [Entitic vol] 9.0 fL 6.3-10.7 [facility] Platelets Auto (Bld) [#/Vol] Ordered By: Nataly Toure on 05-28-2022 Platelets (Bld) [#/Vol] 247 10*3/uL 150-450 [facility] Potassium [Moles/volume] in Serum or PlasmaOrdered By: Nataly Toure on 05-28-2022 Potassium [Moles/Vol] 3.8 mmol/L 3.5-5.1 [facility] Protein [Mass/volume] in Ser um or PlasmaOrdered By: Nataly Toure on 05-28-2022 Protein [Mass/Vol] 7.5 g/dL 6.4-8.9 [facility] RBC Auto (Bld) [#/Vol]Ordere d By: Nataly Toure on 05-28-2022 RBC (Bld) [#/Vol] 4.80 10*6/uL 3.60-5.00 [facility] Serum or plasma albumin/glob ulin mass ratioOrdered By: Nataly Toure on 05-28-2022 Albumin/Globulin [Mass ratio] 1.1 {ratio} [facility] Serum or plasma anion gap de terminationOrdered By: aNtaly Toure on 05-28-2022 Anion gap [Moles/Vol] 12.2 mmol/L 6.0-15.[address] [facility] Serum or plasma high density lipoprotein (HDL) cholesterol measurementOrdered By: Nataly Toure on 05-28-2022 Cholesterol in HDL [Mass/Vol] 42 mg/dL 35-85 [facility] Comment on above: HDL CHOL ATP-III CLA SSIFICATION Cardiovascular RiskHDL > or equal to 60 mg/dL LOWHDL < 40 mg/dL HIGH Serum or plasma thyroperoxid ase antibody assay (units/volume)Ordered By: Nataly Toure on 05-28-2022 TPO Ab Qn [IU]/mL 0-34 [facility] Comment on above: Performed at: [address] [id number] Director: Sam Lopez PhD, Phone: [phone] Serum or plasma total choles terol/high density lipoprotein (HDL) cholesterol mass ratOrdered By: Nataly Toure on 05-28-2022 Cholesterol.total/Chol esterol in HDL [Mass ratio] 6.4 {ratio} <5.0 [facility] Sodium [Moles/volume] in Ser um or PlasmaOrdered By: Nataly Toure on 05-28-2022 Sodium [Moles/Vol] 138 mmol/L 136-145 [facility] TSH DL <= 0.005 mIU/L QnOrde red By: Nataly Toure on 05-28-2022 TSH Qn 2.330 m[IU]/L 0.450-4.50 0 [facility] Transferrin [Mass/volume] in Serum or PlasmaOrdered By: Nataly Toure on 05-28-2022 Transferrin [Mass/Vol] 321 mg/dL 203-362 [facility] Triglyceride [Mass/volume] i n Serum or PlasmaOrdered By: Nataly Toure on 05-28-2022 Triglyceride [Mass/Vol] 939 mg/dL 0-149 [facility] Comment on above: If the [...] on 05-28-2022 T3 [Mass/Vol] 186 ng/dL 71-180 [facility] Triiodothyronine (T3) resin uptake testOrdered By: Nataly Toure on 05-28-2022 T3RU 27 % 24-39 [facility] Urea nitrogen [Mass/volume] in Serum or PlasmaOrdered By: Nataly Toure on 05-28-2022 Urea nitrogen [Mass/Vol] 11 mg/dL 7-25 [facility] WBC Auto (Bld) [#/Vol]Ordere d By: Nataly Toure on 05-28-2022 WBC (Bld) [#/Vol] 7.3 10*3/uL 3.8-11.6 [facility] XR LSPINE 2_3 VIEWSon 2022 XR [...] PILI MIGUEL Date: 2022-03-15 22:49 Normal [facility] CBC AUTO DIFFon 03-15-2022 BASO # 0.0 103/ul Normal 0.0-0.1 [facility] Comment on above: Performed By: #### P REGU #### [facility] [address] [place] [address] [address] Moris Winter Basophils/100 WBC (Bld) 0.1 % Critically low 0.2-2.0 [facility] Comment on above: Performed By: #### P REGU #### [facility] [address] [place] [address] [address] Moris Winter EO # 0.1 103/ul Normal 0.0-0.7 [facility] Comment on above: Performed By: #### P REGU #### [facility] [address] [place] [address] [address] Moris Winter Eosinophils/100 WBC (Bld) 0.8 % Critically low 0.9-7.0 [facility] Comment on above: Performed By: #### P REGU #### [facility] [address] [place] [address] [address] Moris Winter Erythrocyte distribution width (RBC) [Ratio] 13.3 % Normal 11.0-15.0 [facility] Comment on above: Performed By: #### P REGU #### [facility] [address] [place] [address] Dr. Moris Winter Hematocrit (Bld) [Volume fraction] 37.4 % Normal 36.0-48.0 [facility] Comment on above: Performed By: #### P REGU #### [facility] [address] [place] [address] Dr. Moris Winter Hemoglobin (Bld) [Mass/Vol] 13.2 g/dL Normal 12.0-16.0 [facility] Comment on above: Performed By: #### P REGU #### [facility] [address] [place] [address] Dr. Moris Winter IG # 0.02 10e3/ul Normal 0.00-0.03 [facility] Comment on above: Performed By: #### P REGU #### [facility] [address] [place] [address] Dr. Moris Winter IG % 0.2 % Normal 0.0-0.5 [facility] Comment on above: Performed By: #### P REGU #### [facility] [address] [place] [address] Dr. Moris Winter LYMPH # 1.2 103/ul Normal 1.2-3.8 [facility] Comment on above: Performed By: #### P REGU #### [facility] [address] [place] [address] Dr. Moris Winter Lymphocytes/100 WBC (Bld) 14.6 % Critically low 20.5-60.0 [facility] Comment on above: Performed By: #### P REGU #### [facility] [address] [place] [address] Dr. Moris Winter MANUAL DIFF REQ NO Normal [facility] Comment on above: Performed By: #### P REGU #### [facility] [address] [place] [address] Dr. Moris Winter MCH (RBC) [Entitic mass] 27.3 pg Normal 26.7-34.0 [facility] Comment on above: Performed By: #### P REGU #### [facility] [address] [place] [address] Dr. Moris Winter MCHC (RBC) [Mass/Vol] 35.3 g/dL Critically high 29.9-35.2 [facility] Comment on above: Performed By: #### P REGU #### [facility] [address] [place] [address] Dr. Moris Winter MCV (RBC) [Entitic vol] 77.3 fL Critically low 81.0-99.0 [facility] Comment on above: Performed By: #### P REGU #### [facility] [address] [place] [address] Dr. Moris Winter MONO # 0.5 103/ul Normal 0.3-0.8 [facility] Comment on above: Performed By: #### P REGU #### [facility] [address] [place] [address] Dr. Moris Winter Monocytes/100 WBC (Bld) 5.4 % Normal 1.7-12.0 [facility] Comment on above: Performed By: #### P REGU #### [facility] [address] [place] [address] Dr. Moris Winter NEUT # 6.5 103/ul Normal 1.4-6.5 [facility] Comment on above: Performed By: #### P REGU #### [facility] [address] [place] [address] Dr. Moris Winter Neutrophils/100 WBC (Bld) 78.9 % Critically high 43.0-75.0 [facility] Comment on above: Performed By: #### P REGU #### [facility] [address] [place] [address] Dr. Moris Winter Platelet mean volume (Bld) [Entitic vol] 10.1 fL Normal 9.5-13.5 [facility] Comment on above: Performed By: #### P REGU #### [facility] [address] [place] [address] Dr. Moris Winter PLT 256 103/ul Normal 150-450 [facility] Comment on above: Performed By: #### P REGU #### [facility] [address] [place] [address] Dr. Moris Winter RBC 4.84 106/ul Normal 4.20-5.40 [facility] Comment on above: Performed By: #### P REGU #### [facility] [address] [place] [address] Dr. Moris Winter WBC 8.3 103/ul Normal 4.0-11.0 [facility] Comment on above: Performed By: #### P REGU #### [facility] [address] [place] [address] Dr. Moris Winter CRPon 03-15-2022 CRP 3.3 mg/dL Critically high <=1.0 [facility] Comment on above: Performed By: #### B MP, CRP #### [facility] [address] [place] [address] Dr. Moris Winter URon 03-15-2022 , QUAL Negative Normal NEGATIVE [facility] Comment on above: Performed By: #### P REGU #### [facility] [address] [place] [address] Dr. Moris Winter PROF CHEM 8 (BAS METB)on Anion gap [Moles/Vol] 15.8 mmol/L Normal [facility] Comment on above: Performed By: #### B MP, CRP #### [facility] [address] [place] [address] Dr. Moris Winter Calcium [Mass/Vol] 8.6 mg/dL Normal 8.5-10.1 [facility] Comment on above: Performed By: #### B MP, CRP #### [facility] [address] [place] [address] Dr. Moris Winter Chloride [Moles/Vol] 98 mmol/L Normal 98-107 [facility] Comment on above: Performed By: #### B MP, CRP #### [facility] [address] [place] [address] Dr. Moris Winter CO2 [Moles/Vol] 26.7 mmol/L Normal 21.0-32.0 [facility] Comment on above: Performed By: #### B MP, CRP #### [facility] [address] [place] [address] Dr. Moris Winter Creatinine [Mass/Vol] 0.80 mg/dL Normal 0.55-1.02 [facility] Comment on above: Performed By: #### B MP, CRP #### [facility] [address] [place] [address] Dr. Moris Winter EGFR-AF KOSOVAN >60 Normal >=60 [facility] Comment on above: Performed By: #### B MP, CRP #### [facility] [address] [place] [address] Dr. Moris Winter EGFR-NON AF KOSOVAN >60 Normal >=60 [facility] Comment on above: Performed By: #### B MP, CRP #### [facility] [address] [place] [address] Dr. Moris Winter Glucose [Mass/Vol] 103 mg/dL Normal 74-106 [facility] Comment on above: Performed By: #### B MP, CRP #### [facility] [address] [place] [address] Dr. Moris Winter Potassium [Moles/Vol] 3.5 mmol/L Normal 3.5-5.1 [facility] Comment on above: Performed By: #### B MP, CRP #### [facility] [address] [place] [address] Dr. Moris Winter Sodium [Moles/Vol] 137 mmol/L Normal 136-145 [facility] Comment on above: Performed By: #### B MP, CRP #### [facility] [address] [place] [address] Dr. Moris Winter Urea nitrogen [Mass/Vol] 15.0 mg/dL Normal 7.0-18.0 [facility] Comment on above: Performed By: #### B MP, CRP #### [facility] [address] [address] [address] Moris Winter Urea nitrogen/Creatinine [Mass ratio] 18.8 mg/mg Normal [facility] Comment on above: Performed By: #### B MP, CRP #### [facility] [address] [place] [address] Dr. Moris Winter SED RATE [facility] 2022 SED RATE 51 mm/hr Critically high <=20 [facility] Comment on above: Performed By: #### P REGU #### [facility] [address] [address] [address] Moris Winter Amphetamine Screen Ql (U)Ord ered By: TELMA Smith on 10-18-2021 Amphetamines Ql (U) Negative Negative [facility] Automated erythrocytes count in urine sediment (number/area)Ordered By: TELMA Smith on 10-18-2021 RBC Auto (Urine sed) [#/Area] 1-2 [HPF] 0-4 [facility] Automated leukocytes count i n urine sediment (number/area)Ordered By: TELMA Smith on 10-18-2021 WBC Auto (Urine sed) [#/Area] 20-49 [HPF] 0-4 [facility] Barbiturates [Presence] in U rineOrdered By: TELMA Smith on 10-18-2021 Barbiturates Ql (U) Negative Negative [facility] Basophils Auto (Bld) [#/Vol] Ordered By: TELMA Smith on 10-18-2021 Basophils (Bld) [#/Vol] 0.0 10*3/uL 0.0-0.2 [facility] Basophils/100 WBC Auto (Bld) Ordered By: TELMA Smith on 10-18-2021 Basophils/100 WBC (Bld) 0.3 % . [facility] Benzodiazepines [Presence] i n UrineOrdered By: TELMA Smith on 10-18-2021 Benzodiazepines Ql (U) Negative Negative [facility] Bilirubin Test strip Ql (U)O rdered By: TELMA Smith on 10-18-2021 Bilirubin Ql (U) Negative Negative [facility] Blood hemoglobin measurement (mass/volume)Ordered By: TELMA Smith on 10-18-2021 Hemoglobin (Bld) [Mass/Vol] 11.3 g/dL 11.8-15.4 [facility] Blood leukocytes automated c ount (number/volume)Ordered By: TELMA Smith on 10-18-2021 WBC (Bld) [#/Vol] 10.1 10*3/uL 4.5-11.0 [facility] COVID-19 SOFIAOrdered By: MD DESEAN Smith on 10-18-2021 SARS-CoV+SARS-CoV-2 (COVID-19) Ag IA.rapid Ql (Resp) Negative Negative [facility] Comment on above: This is a duplicate [place] SARS Antigen (AUTUMN) result to be used for statistical tracking purpose only. Color Auto (U)Ordered By: MD DESEAN Smith on 10-18-2021 Color (U) Yellow Yellow [facility] Eosinophils Auto (Bld) [#/Vo l]Ordered By: TELMA Smith on 10-18-2021 Eosinophils (Bld) [#/Vol] 0.1 10*3/uL 0.0-0.45 [facility] Eosinophils/100 WBC Auto (Bl d)Ordered By: TELMA Smith on 10-18-2021 Eosinophils/100 WBC (Bld) 1.3 % . [facility] Erythrocyte distribution wid th Auto (RBC) [Ratio]Ordered By: TELMA Smith on 10-18-2021 Erythrocyte distribution width (RBC) [Ratio] 15.6 % 11.9-15.3 [facility] Hematocrit Auto (Bld) [Volum e fraction]Ordered By: TELMA Smith on 10-18-2021 Hematocrit (Bld) [Volume fraction] 34.9 % 34.0-46.4 [facility] Ketones Auto test strip (U) [Mass/Vol]Ordered By: TELMA Smith on 10-18-2021 Ketones (U) [Mass/Vol] Trace Negative [facility] Ordered By: TELMA Smith on 10-18-2021 Opiates Ql (U) Negative Negative [facility] Laboratory - Hematology and Cell countsOrdered By: TELMA Smith on 10-18-2021 Nucleated RBC/100 WBC (Bld) [Ratio] 0.1 % 0-0.5 [facility] - UrinalysisOrder ed By: TELMA Smith on 10-18-2021 Hyaline casts LM Ql (Urine sed) 9-19 [LPF] 0-8 [facility] Lymphocytes Auto (Bld) [#/Vo l]Ordered By: TELMA Smith on 10-18-2021 Lymphocytes (Bld) [#/Vol] 1.7 10*3/uL 1.00-4.8 [facility] Lymphocytes/100 WBC Auto (Bl d)Ordered By: TELMA Smith on 10-18-2021 Lymphocytes/100 WBC (Bld) 17.0 % . [facility] MCH Auto (RBC) [Entitic mass ]Ordered By: TELMA Smith on 10-18-2021 MCH (RBC) [Entitic mass] 25.9 pg 24.7-34.3 [facility] MCHC Auto (RBC) [Mass/Vol]Or dered By: TELMA Smith on 10-18-2021 MCHC (RBC) [Mass/Vol] 32.5 g/dL 32.0-35.0 [facility] MCV Auto (RBC) [Entitic vol] Ordered By: TELMA Smith on 10-18-2021 MCV (RBC) [Entitic vol] 79.6 fL 80-100 [facility] Monocytes Auto (Bld) [#/Vol] Ordered By: TELMA Smith on 10-18-2021 Monocytes (Bld) [#/Vol] 0.8 10*3/uL 0.0-0.8 [facility] Monocytes/100 WBC Auto (Bld) Ordered By: TELMA Smith on 10-18-2021 Monocytes/100 WBC (Bld) 8.1 % . [facility] Neutrophils Auto (Bld) [#/Vo l]Ordered By: TELMA Smith on 10-18-2021 Neutrophils (Bld) [#/Vol] 7.4 10*3/uL 1.8-7.7 [facility] Neutrophils/100 WBC Auto (Bl d)Ordered By: TELMA Smith on 10-18-2021 Neutrophils/100 WBC (Bld) 73.3 % . [facility] Nitrite Test strip Ql (U)Ord ered By: TELMA Smith on 10-18-2021 Nitrite Ql (U) Negative Negative [facility] No Panel InformationOrdered By: TELMA Smith on 10-18-2021 SARS Antigen (LFIA) [facility] Phencyclidine Screen Ql (U)O rdered By: TELMA Smith on 10-18-2021 Phencyclidine Ql (U) Negative Negative [facility] Comment on above: These are unconfirme d results and should not be used for legal purposes. Drug Cut-Off Concentration: AMPH 1000 ng/mL KELLY 200 ng/mL JOE 200 ng/mL COCM 300 ng/mL OP 300 ng/mL PCP 25 ng/mL Platelet mean volume Auto (B ld) [Entitic vol]Ordered By: TELMA Smith on 10-18-2021 Platelet mean volume (Bld) [Entitic vol] 9.7 fL 6.3-10.7 [facility] Platelets Auto (Bld) [#/Vol] Ordered By: TELMA Smith on 10-18-2021 Platelets (Bld) [#/Vol] 190 10*3/uL 150-450 [facility] Protein Auto test strip (U) [Mass/Vol]Ordered By: TELMA Smith on 10-18-2021 Protein (U) [Mass/Vol] Trace mg/dL Negative [facility] RBC Auto (Bld) [#/Vol]Ordere d By: TELMA Smith on 10-18-2021 RBC (Bld) [#/Vol] 4.38 10*6/uL 3.60-5.00 [facility] S. agalactiae Org specific c x Ql (Unsp spec)Ordered By: Radha Molina on 10-18-2021 Group B Streptococcus Culture Strep. agalactiae Grp B [facility] Specific gravity Auto test s trip (U) [Rel density]Ordered By: TELMA Smith on 10-18-2021 Specific gravity (U) [Rel density] 1.020 1.001-1.03 0 [facility] Squamous epithelial cells de tection in urine sediment by light microscopyOrdered By: TELMA Smith on 10-18-2021 Epithelial cells.squamous LM Ql (Urine sed) 5-9 [HPF] 0-2 [facility] Urine bacteria detection by automated methodOrdered By: TELMA Smith on 10-18-2021 Bacteria Auto Ql (U) 1+ None Seen [facility] Urine clarity by refractomet ry automatedOrdered By: TELMA Smith on 10-18-2021 Clarity Refractometry automated (U) Cloudy Clear [facility] Urine cocaine detectionOrder ed By: TELMA Smith on 10-18-2021 Cocaine Ql (U) Negative Negative [facility] Urine glucose measurement by automated test strip (mass/volume)Ordered By: SHELLIE Smith on 10-18-2021 Glucose Auto test strip (U) [Mass/Vol] Normal mg/dL Normal [facility] Urine hemoglobin detection b y automated test stripOrdered By: TELMA Smith on 10-18-2021 Hemoglobin Auto test strip Ql (U) Negative Negative [facility] Urine leukocyte esterase det ection by automated test stripOrdered By: TELMA Smith on 10-18-2021 Leukocyte esterase Auto test strip Ql (U) 3+ Negative [facility] Urobilinogen Auto test strip (U) [Mass/Vol]Ordered By: TELMA Smith on 10-18-2021 Urobilinogen (U) [Mass/Vol] Normal mg/dL Normal [facility] pH Auto test strip (U)Ordere d By: TELMA Smith on 10-18-2021 pH (U) 6.5 [pH] 5.0-9.0 [facility] UA (CLEAN/CATCH) TOMBSTONE ERECTOR/MICRO I F IND.on 08-31-2021 Bilirubin Ql (U) Negative Normal NEGATIVE [facility] Comment on above: Performed By: #### U ACSJOANN MACKEY #### [facility] [address] [address] [address] Moris Winter Clarity (U) SL CLOUDY Abnormal CLEAR [facility] Comment on above: Performed By: #### U ACSIND, UMICRO #### [facility] [address] [address] [address] Moris Winter Color (U) LT. YELLOW Normal YELLOW [facility] Comment on above: Performed By: #### U ACSIND, UMICRO #### [facility] [address] [address] [address] Moris Winter Glucose Ql (U) Negative Normal NEGATIVE [facility] Comment on above: Performed By: #### U ACSIND, UMICRO #### [facility] [address] [place] [address] Dr. Moris Winter Hemoglobin Ql (U) TRACE-INTACT Abnormal NEGATIVE [facility] Comment on above: Performed By: #### U ACSNARENDRA, UMICRO #### [facility] [address] [place] [address] Dr. Moris Winter Ketones Ql (U) Negative Normal NEGATIVE [facility] Comment on above: Performed By: #### U ACSNARENDRA UMICRO #### [facility] [address] [place] [address] Dr. Moris Winter LEUKOCYTES TRACE Abnormal NEGATIVE [facility] Comment on above: Performed By: #### U ACSNARENDRA UMICRO #### [facility] [address] [place] [address] Dr. Moris Winter Nitrite Ql (U) Negative Normal NEGATIVE [facility] Comment on above: Performed By: #### U ACSNARENDRA UMICRO #### [facility] [address] [place] [address] Dr. Moris Winter pH (U) 7.0 [pH] Normal 5-9 [facility] Comment on above: Performed By: #### U ACSNARENDRA UMICRO #### [facility] [address] [place] [address] Dr. Moris Winter SPEC GRAVITY 1.010 Normal 1.005-<=1. 025 [facility] Comment on above: Performed By: #### U ACSNARENDRA, UMICRO #### [facility] [address] [place] [address] Dr. Moris Winter UA PROTEIN Negative Normal NEGATIVE/ TRACE [facility] Comment on above: Performed By: #### U ACSIND, UMICRO #### [facility] [address] [place] [address] Dr. Moris Winter UR MICRO IND INDICATED Normal [facility] Comment on above: Performed By: #### U ACSIND, UMICRO #### [facility] [address] [place] [address] Dr. Moris Winter Urobilinogen Qn (U) 0.2 {Marcin'U}/dL Normal 0.2 - 1. 0 [facility] Comment on above: Performed By: #### U ACSIND, UMICRO #### [facility] [address] [place] [address] Dr. Moris Winter URINE MICROSCOPIC ONLYon BACTERIA NONE SEEN Normal NONE SEEN [facility] Comment on above: Performed By: #### U ACSIND, UMICRO #### [facility] [address] [place] [address] Dr. Moris Winter Bacteria identified Cx Nom (U) NOT INDICATED Normal [facility] Comment on above: Performed By: #### U ACSIND, UMICRO #### [facility] [address] [place] [address] Dr. Moris Winter CAST NONE SEEN Normal NONE SEEN [facility] Comment on above: Performed By: #### U ACSIND, UMICRO #### [facility] [address] [place] [address] Dr. Moris Winter Crystals LM Nom (Urine sed) NONE SEEN Normal NONE SEEN [facility] Comment on above: Performed By: #### U ACSIND, UMICRO #### [facility] [address] [place] [address] Dr. Moris Winter Epithelial cells LM Ql (Urine sed) MODERATE Abnormal NONE SEEN /RARE [facility] Comment on above: Performed By: #### U ACSIND, UMICRO #### [facility] [address] [place] [address] Dr. Moris Winter MUCOUS NONE SEEN Normal NONE SEEN [facility] Comment on above: Performed By: #### U ACSNARENDRA, UMICRO #### [facility] [address] [address] [address] Moris Winter RBC 0-2 Normal 0-2 [facility] Comment on above: Performed By: #### U ACSNARENDRA, UMICRO #### [facility] [address] [address] [address] Moris Winter WBC 0-2 Abnormal NONE SEEN [facility] Comment on above: Performed By: #### U ACSNARENDRA UMICRO #### [facility] [address] [address] [address] Moris Winter Covid-19 PCR ([facility])on 07-17 SARS-CoV-2 (COVID-19) RNA SVETLANA+probe Ql (Unsp spec) Detected Critically abnormal NOT DETECTED [facility] Comment on above: Result Comment: This test is not yet approved or cleared by the [place] FDA. When there are no FDA-approved or cleared tests available, and other criteria are met, FDA can make tests available under an emergency access mechanism called an Emergency Use Authorization (EUA). The EUA for this test is supported by the Harmonic Analyst of Health and Human Service's declaration [...] used). Performed By: #### P REGU #### [facility] [address] [place] [address] Dr. Moris Winter INFLUENZA A AND B AGon 08-08 INFLUANEGH SEE BELOW Normal [facility] Comment on above: Result Comment: Nega tive for Flu A protein angiten. Infection due to Flu A cannot be ruled out. Flu A angiten in the sample may be below the detection limit of the test. Performed By: #### P REGU #### [facility] [address] [place] [address] Dr. Moris Winter INFLUBNEGH SEE BELOW Normal [facility] Comment on above: Result Comment: Nega tive for Flu B protein antigen. Infection due to Flu B cannot be ruled out. Flu B antigen in the sample may be below the detection limit of the test. Performed By: #### P REGU #### [facility] [address] [place] [address] Dr. Moris Winter INFLUENZA A AG Negative Normal NEGATIVE SEE COMMENT [facility] Comment on above: Performed By: #### P REGU #### [facility] [address] [address] [address] Moris Winter INFLUENZA B AG Negative Normal NEGATIVE SEE COMMENT [facility] Comment on above: Performed By: #### P REGU #### [facility] [address] [place] [address] Dr. Moris Winter INTERNAL CONTROLS Within Normal Limits Normal Wi thin Normal Limits [facility] Comment on above: Performed By: #### P REGU #### [facility] [address] [place] [address] Dr. Morsi Winter Serum or plasma beta choriog onadotropin measurement (units/volume)Ordered By: Radha Molina on 07-21-2021 HCG.beta subunit Qn 19561.00 m[IU]/mL [facility] Comment on above: Approximate Approxim ate hCG Gestational Age Range (mIU/ml) (weeks) 0.2-1 5-50 1-2 50-500 2-3 100-5,000 3-4 500-10,000 4-5 1,000-50,000 5-6 10,000-100,000 6-8 15,000-200,000 8-12 10,000-100,000 Operative Reporton 9 Operative Report MR#: [id number] S [facility] Pt. Name: Rosette Alba Room #: [...] placed Adaptic under the skin using a Aurora and tied this down with a 5-0 [...] Carballo MD Date Trans: 08/03/2018 08:27 P/antony [id number] cc: Soraya Romo [address] [place] [id number] Normal [facility] POC GLUCOSE LABon 08-03-2018 Glucose [Mass/Vol] 105 mg/dL High 70-100 [facility] Comment on above: Performed By: #### [id number] #### [facility] [address] [place] [address], [facility] POC URINE PREGNANCYon 2018 Beta HCG ( test) Ql (U) Negative Normal NEGATIVE [facility] Comment on above: Result Comment: Perf ormed in PACU Performed By: #### [id number] #### [facility] [address] [place] [address], [facility] Vital Signs Date Time Vital Sign Value Performing Clinician Facility 09-19-2024 14:25-0400 Body mass index (BMI) [Ratio] 41.27 kg/m2 [employer] Work Phone: [facility] 09-19-2024 14:25-0400 Body weight 105.69 kg Camacho Mary [employer] Work Phone: [facility] 09-19-2024 14:25-0400 Diastolic blood pressure 72 mm[Hg] Camacho Mary DO Work Phone: [facility] 09-19-2024 14:25-0400 Systolic blood pressure 122 mm[Hg] Camacho Mary DO Work Phone: [facility] 08-09-2024 11:32-0400 Body mass index (BMI) [Ratio] 41.12 kg/m2 Kim Khoury PA Work Phone: [facility] 08-09-2024 11:32-0400 Body weight 105.29 kg Kim Iraida PA Work Phone: [facility] 08-09-2024 11:32-0400 Diastolic blood pressure 70 mm[Hg] Kim Khoury PA Work Phone: [facility] 08-09-2024 11:32-0400 Systolic blood pressure 110 mm[Hg] Kim Khoury PA Work Phone: [facility] 06-15-2024 14:03-0400 Body mass index (BMI) [Ratio] 42.3 kg/m2 Riya Alexander [employer] Work Phone: [facility] 06-15-2024 14:03-0400 Body weight 108.32 kg Riya Catherine [employer] Work Phone: [facility] 06-15-2024 14:03-0400 Diastolic blood pressure 70 mm[Hg] Riya Catherine [employer] SOFTWARE ENGINE[employer] Work Phone: [facility] 06-15-2024 14:03-0400 Systolic blood pressure 118 mm[Hg] Riya Catherine [employer] SOFTWARE ENGINE[employer] Work Phone: [facility] 06-01-2024 09:56-0400 Body mass index (BMI) [Ratio] 41.72 kg/m2 Camacho Mary DO Work Phone: [facility] 06-01-2024 09:56-0400 Body weight 106.82 kg Camacho Mary DO Work Phone: [facility] 06-01-2024 09:56-0400 Diastolic blood pressure 66 mm[Hg] Camacho Mary DO Work Phone: [facility] 06-01-2024 09:56-0400 Systolic blood pressure 110 mm[Hg] Camacho Mary DO Work Phone: [facility] 05-29-2024 12:36-0400 Body mass index (BMI) [Ratio] 40.57 kg/m2 Trudy Cordondavid [employer] Work Phone: [facility] 05-29-2024 12:36-0400 Body temperature 98.2 [degF] Trudy Cordondavid [employer] ENGINE[employer] Work Phone: [facility] 05-29-2024 12:36-0400 Body weight 103.87 kg Trudy Cordondavid [employer] SOFTWARE ENGINEER Work Phone: [facility] 05-29-2024 12:36-0400 Heart rate 113 /min Trudy Cordondavid VIDEO SOFTWARE ENGINEER Work Phone: [facility] 05-29-2024 12:36-0400 SaO2% (BldA) [Mass fraction] 97 % Trudy Cordondavid [employer]IDEO SOFTWARE ENGINEER Work Phone: [facility] 05-04-2024 11:14-0400 Body mass index (BMI) [Ratio] 40.59 kg/m2 Camacho Mary DO Work Phone: [facility] 05-04-2024 11:14-0400 Body weight 103.93 kg Camacho Mary DO Work Phone: [facility] 05-04-2024 11:14-0400 Diastolic blood pressure 70 mm[Hg] Camacho Mary DO Work Phone: [facility] 05-04-2024 11:14-0400 Systolic blood pressure 126 mm[Hg] Camacho Mary DO Work Phone: [facility] 04-13-2024 11:56-0500 Body height 160 cm Ni Carroll MD Work Phone: [facility] 04-13-2024 11:56-0500 Body mass index (BMI) [Ratio] 40.19 kg/m2 Ni Carroll MD Work Phone: [facility] 04-13-2024 11:56-0500 Body weight 102.88 kg Ni Carroll MD Work Phone: [facility] 04-13-2024 11:56-0500 Diastolic blood pressure 64 mm[Hg] Ni Carroll MD Work Phone: [facility] 04-13-2024 11:56-0500 Heart rate 98 /min Ni Carroll MD Work Phone: [facility] 04-13-2024 11:56-0500 Systolic blood pressure 116 mm[Hg] Ni Carroll MD Work Phone: [facility] 04-06-2024 11:45-0500 Body mass index (BMI) [Ratio] 40.46 kg/m2 Kim QUICK Work Phone: [facility] 04-06-2024 11:45-0500 Body weight 103.6 kg Kim QUICK Work Phone: [facility] 04-06-2024 11:45-0500 Diastolic blood pressure 70 mm[Hg] Kim QUICK Work Phone: [facility] 04-06-2024 11:45-0500 Systolic blood pressure 114 mm[Hg] Kim Khoury PA Work Phone: [facility] 03-09-2024 10:38-0500 Body mass index (BMI) [Ratio] 39.17 kg/m2 Camacho Mary DO Work Phone: [facility] 03-09-2024 10:38-0500 Body weight 100.31 kg Camacho Mary DO Work Phone: [facility] 03-09-2024 10:38-0500 Diastolic blood pressure 60 mm[Hg] Camacho Mary DO Work Phone: [facility] 03-09-2024 10:38-0500 Systolic blood pressure 116 mm[Hg] Camacho Mary DO Work Phone: [facility] 10-20-2023 08:28-0400 Body height 160.02 cm VIDEO SOFTWARE ENGINEER-C Nataly Spasic Work Phone: [facility] 10-20-2023 08:28-0400 Body mass index (BMI) [Ratio] 38 kg/m2 [employer]IDEO SOFTWARE ENGINEER[employer]C Nataly Spasic Work Phone: [facility] 10-20-2023 08:28-0400 Body temperature 97.7 [degF] VIDEO SOFTWARE ENGINEER-C Nataly Spasic Work Phone: [facility] 10-20-2023 08:28-0400 Body weight 97.52 kg VIDEO SOFTWARE ENGINEER-C Nataly Spasic Work Phone: [facility] 10-20-2023 08:28-0400 Diastolic blood pressure 74 mm[Hg] VIDEO SOFTWARE ENGINEER-C Nataly Spasic Work Phone: [facility] 10-20-2023 08:28-0400 Heart rate 75 /min VIDEO SOFTWARE ENGINEER-C Nataly Spasic Work Phone: [facility] 10-20-2023 08:28-0400 Respiratory rate 18 /min VIDEO SOFTWARE ENGINEER-C Nataly Spasic Work Phone: [facility] 10-20-2023 08:28-0400 SaO2% (BldA) [Mass fraction] 99 % VIDEO SOFTWARE ENGINEER-C Nataly Spasic Work Phone: [facility] 10-20-2023 08:28-0400 Systolic blood pressure 107 mm[Hg] VIDEO SOFTWARE ENGINEER-C Nataly Spasic Work Phone: [facility] 10-04-2023 22:40-0400 Body height 160.02 cm VIDEO SOFTWARE ENGINEER-C Nataly Spasic Work Phone: [facility] 10-04-2023 22:40-0400 Body temperature 97.7 [degF] VIDEO SOFTWARE ENGINEER-C Nataly Spasic Work Phone: [facility] 10-04-2023 22:40-0400 Body weight 95.5 kg VIDEO SOFTWARE ENGINEER-C Nataly Spasic Work Phone: [facility] 10-04-2023 22:40-0400 Diastolic blood pressure 75 mm[Hg] VIDEO SOFTWARE ENGINEER-C Nataly Spasic Work Phone: [facility] 10-04-2023 22:40-0400 Heart rate 95 /min VIDEO SOFTWARE ENGINEER-C Nataly Spasic Work Phone: [facility] 10-04-2023 22:40-0400 Respiratory rate 16 /min VIDEO SOFTWARE ENGINEER-C Nataly Spasic Work Phone: [facility] 10-04-2023 22:40-0400 SaO2% (BldA) [Mass fraction] 98 % VIDEO SOFTWARE ENGINEER-C Nataly Spasic Work Phone: [facility] 10-04-2023 22:40-0400 Systolic blood pressure 132 mm[Hg] VIDEO SOFTWARE ENGINEER-C Nataly Spasic Work Phone: [facility] 09-26-2023 21:36-0400 Body temperature 98.1 [degF] VIDEO SOFTWARE ENGINEER-C Nataly Spasic Work Phone: [facility] 09-26-2023 21:36-0400 Diastolic blood pressure 74 mm[Hg] VIDEO SOFTWARE ENGINEER-C Nataly Spasic Work Phone: [facility] 09-26-2023 21:36-0400 Heart rate 90 /min VIDEO SOFTWARE ENGINEER-C Nataly Spasic Work Phone: [facility] 09-26-2023 21:36-0400 Respiratory rate 16 /min VIDEO SOFTWARE ENGINEER-C Nataly Spasic Work Phone: [facility] 09-26-2023 21:36-0400 SaO2% (BldA) [Mass fraction] 99 % VIDEO SOFTWARE ENGINEER-C Nataly Spasic Work Phone: [facility] 09-26-2023 21:36-0400 Systolic blood pressure 145 mm[Hg] VIDEO SOFTWARE ENGINEER-C Nataly Spasic Work Phone: [facility] 09-26-2023 21:35-0400 Body height 160.02 cm VIDEO SOFTWARE ENGINEER-C Nataly Spasic Work Phone: [facility] 09-26-2023 21:35-0400 Body weight 96.7 kg VIDEO SOFTWARE ENGINEER-C Nataly Spasic Work Phone: [facility] 08-20-2023 23:05-0400 Body height 160.02 cm VIDEO SOFTWARE ENGINEER-C Nataly Spasic Work Phone: [facility] 08-20-2023 23:05-0400 Body temperature 98.3 [degF] VIDEO SOFTWARE ENGINEER-C Nataly Spasic Work Phone: [facility] 08-20-2023 23:05-0400 Body weight 97.5 kg VIDEO SOFTWARE ENGINEER-C Nataly Spasic Work Phone: [facility] 08-20-2023 23:05-0400 Diastolic blood pressure 66 mm[Hg] VIDEO SOFTWARE ENGINEER-C Nataly Spasic Work Phone: [facility] 08-20-2023 23:05-0400 Heart rate 90 /min VIDEO SOFTWARE ENGINEER-C Nataly Spasic Work Phone: [facility] 08-20-2023 23:05-0400 Respiratory rate 20 /min VIDEO SOFTWARE ENGINEER-C Nataly Spasic Work Phone: [facility] 08-20-2023 23:05-0400 SaO2% (BldA) [Mass fraction] 99 % VIDEO SOFTWARE ENGINEER-C Nataly Spasic Work Phone: [facility] 08-20-2023 23:05-0400 Systolic blood pressure 136 mm[Hg] VIDEO SOFTWARE ENGINEER-C Nataly Spasic Work Phone: [facility] 02-13-2023 21:40-0500 Body temperature 97.7 [degF] VIDEO SOFTWARE ENGINEER-C Nataly Spasic Work Phone: [facility] 12-30-2023 21:40-0500 Diastolic blood pressure 87 mm[Hg] VIDEO SOFTWARE ENGINEER-C Nataly Spasic Work Phone: [facility] 02-13-2023 21:40-0500 Heart rate 100 /min VIDEO SOFTWARE ENGINEER-C Nataly Spasic Work Phone: [facility] 02-13-2023 21:40-0500 Respiratory rate 18 /min VIDEO SOFTWARE ENGINEER-C Nataly Spasic Work Phone: [facility] 02-13-2023 21:40-0500 SaO2% (BldA) [Mass fraction] 96 % VIDEO SOFTWARE ENGINEER-C Nataly Spasic Work Phone: [facility] 02-13-2023 21:40-0500 Systolic blood pressure 140 mm[Hg] VIDEO SOFTWARE ENGINEER-C Nataly Spasic Work Phone: [facility] 02-13-2023 11:10-0500 Body height 160.02 cm VIDEO SOFTWARE ENGINEER-C Nataly Spasic Work Phone: [facility] 02-13-2023 11:10-0500 Body weight 99.79 kg VIDEO SOFTWARE ENGINEER-C Nataly Spasic Work Phone: [facility] 02-01-2023 19:30-0500 Body temperature 97.3 [degF] VIDEO SOFTWARE ENGINEER-C Nataly Spasic Work Phone: [facility] 02-01-2023 19:30-0500 Diastolic blood pressure 75 mm[Hg] VIDEO SOFTWARE ENGINEER-C Nataly Spasic Work Phone: [facility] 02-01-2023 19:30-0500 Heart rate 94 /min VIDEO SOFTWARE ENGINEER-C Nataly Spasic Work Phone: [facility] 02-01-2023 19:30-0500 Respiratory rate 14 /min VIDEO SOFTWARE ENGINEER-C Nataly Spasic Work Phone: [facility] 02-01-2023 19:30-0500 SaO2% (BldA) [Mass fraction] 98 % VIDEO SOFTWARE ENGINEER-C Nataly Spasic Work Phone: [facility] 02-01-2023 19:30-0500 Systolic blood pressure 123 mm[Hg] VIDEO SOFTWARE ENGINEER-C Nataly Spasic Work Phone: [facility] 01-31-2023 09:00-0500 Body temperature 98 [degF] VIDEO SOFTWARE ENGINEER-C Nataly Spasic Work Phone: [facility] 01-31-2023 09:00-0500 Respiratory rate 16 /min VIDEO SOFTWARE ENGINEER-C Nataly Spasic Work Phone: [facility] 01-31-2023 08:46-0500 Diastolic blood pressure 57 mm[Hg] VIDEO SOFTWARE ENGINEER-C Nataly Spasic Work Phone: [facility] 01-31-2023 08:46-0500 Heart rate 112 /min VIDEO SOFTWARE ENGINEER-C Nataly Spasic Work Phone: [facility] 01-31-2023 08:46-0500 Systolic blood pressure 112 mm[Hg] VIDEO SOFTWARE ENGINEER-C Nataly Spasic Work Phone: [facility] 01-31-2023 06:31-0500 SaO2% (BldA) [Mass fraction] 96 % VIDEO SOFTWARE ENGINEER-C Nataly Spasic Work Phone: [facility] 01-31-2023 00:08-0500 Body height 160.02 cm VIDEO SOFTWARE ENGINEER-C Nataly Spasic Work Phone: [facility] 01-31-2023 00:08-0500 Body weight 97.52 kg VIDEO SOFTWARE ENGINEER-C Nataly Spasic Work Phone: [facility] 01-21-2023 09:56-0500 Body height 157.48 cm VIDEO SOFTWARE ENGINEER-C Nataly Spasic Work Phone: [facility] 01-21-2023 09:56-0500 Body weight 81.64 kg VIDEO SOFTWARE ENGINEER-C Nataly Spasic Work Phone: [facility] 12-01-2022 18:06-0400 Diastolic blood pressure 75 mm[Hg] VIDEO SOFTWARE ENGINEER-C Nataly Spasic Work Phone: [facility] 12-01-2022 18:06-0400 Heart rate 109 /min VIDEO SOFTWARE ENGINEER-C Nataly Spasic Work Phone: [facility] 12-01-2022 18:06-0400 Respiratory rate 17 /min VIDEO SOFTWARE ENGINEER-C Nataly Spasic Work Phone: [facility] 12-01-2022 18:06-0400 SaO2% (BldA) [Mass fraction] 99 % VIDEO SOFTWARE ENGINEER-C Nataly Spasic Work Phone: [facility] 12-01-2022 18:06-0400 Systolic blood pressure 123 mm[Hg] VIDEO SOFTWARE ENGINEER-C Nataly Spasic Work Phone: [facility] 12-01-2022 14:32-0400 Body height 160.02 cm VIDEO SOFTWARE ENGINEER-C Nataly Spasic Work Phone: [facility] 12-01-2022 14:32-0400 Body temperature 97.6 [degF] VIDEO SOFTWARE ENGINEER-C Nataly Spasic Work Phone: [facility] 12-01-2022 14:32-0400 Body weight 101.2 kg VIDEO SOFTWARE ENGINEER-C Nataly Spasic Work Phone: [facility] 11-20-2022 19:00-0400 Respiratory rate 16 /min VIDEO SOFTWARE ENGINEER-C Nataly Spasic Work Phone: [facility] 11-20-2022 18:14-0400 Diastolic blood pressure 65 mm[Hg] VIDEO SOFTWARE ENGINEER-C Nataly Spasic Work Phone: [facility] 11-20-2022 18:14-0400 Heart rate 100 /min VIDEO SOFTWARE ENGINEER-C Nataly Spasic Work Phone: [facility] 11-20-2022 18:14-0400 Systolic blood pressure 131 mm[Hg] VIDEO SOFTWARE ENGINEER-C Nataly Spasic Work Phone: 2(258)304-163115 [place] [address] 11-20-2022 18:05-0400 SaO2% (BldA) [Mass fraction] 99 % VIDEO SOFTWARE ENGINEER-C Nataly Spasic Work Phone: 2(333)461-080815 [place] [address] 11-20-2022 17:21-0400 Body height 160.02 cm VIDEO SOFTWARE ENGINEER-C Nataly Spasic Work Phone: 2(961)009-321515 [place] [address] 11-20-2022 17:21-0400 Body weight 98.88 kg VIDEO SOFTWARE ENGINEER-C Nataly Spasic Work Phone: 4(633)790-802215 [place] [address] 11-19-2022 13:49-0400 Respiratory rate 16 /min VIDEO SOFTWARE ENGINEER-C Nataly Spasic Work Phone: 4(994)908-936115 [place] [address] 11-19-2022 13:30-0400 Body temperature 97.4 [degF] VIDEO SOFTWARE ENGINEER-C Nataly Spasic Work Phone: 6(133)634-747815 [place] [address] 11-19-2022 12:53-0400 Diastolic blood pressure 71 mm[Hg] VIDEO SOFTWARE ENGINEER-C Nataly Spasic Work Phone: 3(036)198-510515 [place] [address] 11-19-2022 12:53-0400 Heart rate 109 /min VIDEO SOFTWARE ENGINEER-C Nataly Spasic Work Phone: 9(826)762-743115 [place] [address] 11-19-2022 12:53-0400 Systolic blood pressure 125 mm[Hg] VIDEO SOFTWARE ENGINEER-C Nataly Spasic Work Phone: [facility] 11-19-2022 12:49-0400 SaO2% (BldA) [Mass fraction] 99 % VIDEO SOFTWARE ENGINEER-C Nataly Spasic Work Phone: 0(636)532-606715 [place] [address] 11-19-2022 12:23-0400 Body height 160.02 cm VIDEO SOFTWARE ENGINEER-C Nataly Spasic Work Phone: 6(939)094-927767 [address] 11-19-2022 12:23-0400 Body weight 98.88 kg VIDEO SOFTWARE ENGINEER-C Nataly Spasic Work Phone: 9(645)411-274615 [place] [address] 10-18-2021 05:08-0400 Diastolic blood pressure 58 mm[Hg] DO Obdulia Oneil Work Phone: [facility] 10-18-2021 05:08-0400 Heart rate 96 /min DO Obdulia Oneil Work Phone: [facility] 10-18-2021 05:08-0400 SaO2% (BldA) [Mass fraction] 98 % DO Obdulia Oneil Work Phone: [facility] 10-18-2021 05:08-0400 Systolic blood pressure 118 mm[Hg] DO Obdulia Oneil Work Phone: [facility] 10-18-2021 05:00-0400 Body temperature 98.3 [degF] DO Obdulia Oneil Work Phone: [facility] 10-18-2021 05:00-0400 Respiratory rate 16 /min DO Obdulia Oneil Work Phone: [facility] 10-18-2021 01:57-0400 Body weight 102.51 kg DO Obdulia Oneil Work Phone: [facility] 10-18-2021 01:31-0400 Body height 160.02 cm DO Obdulia Oneil Work Phone: [facility] Encounters Encounter Date Encounter Type Care Provider Facility Start: 09-19-2024 End: 09-19-2024 Office outpatient visit 15 minutes Camacho Hernandez DO Work Phone: [facility] Comment on above: Pre-op examination; Request for sterilization Start: 09-19-2024 End: 09-19-2024 Preprocedural examination done Camacho Hernandez DO Work Phone: [facility] Start: 08-17-2024 End: 08-17-2024 ambulatory Services [facility] Work Phone: Start: 08-17-2024 End: 08-17-2024 Departed Referred Nataly POLLOCK [facility] Start: 08-09-2024 End: 08-09-2024 care visit Kim QUICK Work Phone: [facility] Comment on above: 6 weeks f ollow-up ([facility]) Start: 08-09-2024 End: 08-09-2024 ambulatory KIM KHOURY Not Available Start: 07-24-2024 End: 07-24-2024 Encounter Tai Chapman MD Work Phone: [facility] 3E NICU Start: 07-17-2024 End: 07-17-2024 Encounter Tai Chapman MD Work Phone: [facility] 3W NICU Start: 07-04-2024 End: 07-04-2024 Encounter Tai Chapman MD Work Phone: [facility] 3W NICU Start: 06-30-2024 End: 06-30-2024 [facility] Start: 06-28-2024 End: 06-28-2024 [facility] Start: 06-28-2024 End: 06-30-2024 Evaluation and management of inpatient SUMEET Sommer MOORE [facility] Start: 06-26-2024 End: 06-26-2024 Clinisync Result Encounter Camacho Mary DO Work Phone: [facility] Unsolicited Start: 06-26-2024 End: 06-26-2024 Clinisync Result Encounter Camacho Mary DO Work Phone: [facility] Unsolicited Start: 06-15-2024 End: 06-15-2024 Bamboo flowsheet Riya Alexander VIDEO SOFTWARE ENGINEER Work Phone: [facility] Start: 06-15-2024 End: 06-15-2024 Bamboo flowsheet Riya Alexander VIDEO SOFTWARE ENGINEER Work Phone: [facility] Start: 06-15-2024 End: 06-15-2024 Office outpatient visit 15 minutes Riya Alexander VIDEO SOFTWARE ENGINEER Work Phone: [facility] Comment on above: Elevated glucose rayo erance test (Primary Dx); 30 weeks gestation of ; Third trimester Start: 06-15-2024 End: 06-15-2024 ambulatory RIYA ALEXANDER Not Available Start: 06-08-2024 End: 06-08-2024 ambulatory CAMACHO MARY Not Available Start: 06-01-2024 End: 06-01-2024 Office outpatient visit 15 minutes Camacho Mary DO Work Phone: [facility] Comment on above: Third trimester [...] Office outpatient new 45 minutes Trudy Cool VIDEO SOFTWARE ENGINEER Work Phone: [facility] Comment on above: Strep throat (Primar y Dx); Pharyngitis, unspecified etiology; 27 weeks gestation of Start: 05-29-2024 End: 05-29-2024 ambulatory TRUDY COOL Not Available Start: 05-25-2024 End: 05-25-2024 Clinisync Result Encounter Camacho Mary DO Work Phone: [facility] External Department Unsolicited Start: 05-25-2024 End: 05-25-2024 Clinisync Result Encounter Camacho Mary DO Work Phone: [facility] External Department Unsolicited Start: 05-04-2024 End: 05-04-2024 Office outpatient visit 15 minutes Camacho Mary DO Work Phone: [facility] Comment on above: Short cervix, antepa rtum (Primary Dx); 24 weeks gestation of ; Second trimester ; Diabetes mellitus screening; Nonintractable headache, unspecified chronicity pattern, unspecified headache type Start: 05-04-2024 End: 05-04-2024 ambulatory CAMACHO HERNANDEZ Not Available Start: 05-03-2024 End: 05-03-2024 ambulatory NI CARROLL [facility] Start: 04-14-2024 End: 04-14-2024 Clinisync Result Encounter Camacho Hernandez DO Work Phone: [facility] Unsolicited Start: 04-14-2024 End: 04-14-2024 Clinisync Result Encounter Camacho Hernandez DO Work Phone: [facility] Unsolicited Start: 04-13-2024 End: 04-13-2024 Office consultation new/estab patient 60 min Ni Carroll MD Work Phone: [facility] Comment on above: delivery aft er section (Primary Dx) Start: 04-13-2024 End: 04-13-2024 Orders Only Berenice Vyas RN [facility] Comment on above: History of [...] Carroll MD Work Phone: [facility] Start: 03-14-2024 End: 03-14-2024 Clinisync Result Encounter Camacho Mary DO Work Phone: [facility] External Department Unsolicited Start: 03-14-2024 End: 03-14-2024 Clinisync Result Encounter Camacho Mary DO Work Phone: [facility] External Department Unsolicited Start: 03-09-2024 End: 03-09-2024 Bamboo flowsheet Camacho Mary DO Work Phone: [facility] Start: 03-09-2024 End: 03-09-2024 Bamboo flowsheet Camacho Mary DO Work Phone: [facility] Start: 03-09-2024 End: 03-09-2024 Office outpatient visit 15 minutes Camacho Mary DO Work Phone: [facility] Comment on above: Second trimester pre gnancy; 16 weeks gestation of ; History of delivery, currently ; Diabetes mellitus screening; History of gestational diabetes Start: 03-09-2024 End: 03-09-2024 ambulatory CAMACHO MARY Not Available Start: 02-25-2024 End: 02-25-2024 Clinisync Result Encounter Camacho Mary DO Work Phone: [facility] External Department Unsolicited Start: 02-25-2024 End: 02-25-2024 Clinisync Result Encounter Camacho Mary DO Work Phone: [facility] External Department Unsolicited Start: 02-03-2024 End: 02-03-2024 ambulatory [facility] Mary Nurse [facility] Comment on above: GA: 11w1d Start: 11-03-2023 ambulatory Nataly E Spasic Facility :[facility] Start: 10-20-2023 Registered Recurring VIDEO SOFTWARE ENGINEER-C Andrez a Spasic Work Phone: [facility] Work Phone: Start: 10-20-2023 End: 10-20-2023 ambulatory VIDEO SOFTWARE ENGINEER-C Nataly E Spasic Work Phone: [facility] Work Phone: Start: 10-20-2023 End: 10-20-2023 Patient encounter procedure VIDEO SOFTWARE ENGINEER-C Nataly Spasic Work Phone: [facility] Ambulatory Work Phone: Start: 10-07-2023 End: 10-07-2023 Patient encounter procedure VIDEO SOFTWARE ENGINEER-C Nataly Spasic Work Phone: [facility]Ul[facility]ound [facility] [place] Work Phone: Start: 10-07-2023 End: 10-07-2023 ambulatory VIDEO SOFTWARE ENGINEER-C Nataly E Spasic Work Phone: [facility] Work Phone: Start: 10-04-2023 End: 10-05-2023 Emergency department patient visit VIDEO SOFTWARE ENGINEER-C Nataly Spasic Work Phone: [facility] Work Phone: Start: 09-30-2023 End: 09-30-2023 ambulatory VIDEO SOFTWARE ENGINEER-C Nataly E Spasic Work Phone: [facility] Work Phone: Start: 09-30-2023 End: 09-30-2023 Departed Referred VIDEO SOFTWARE ENGINEER-C Nataly Spasic Work Phone: [facility] [place] Work Phone: Start: 09-26-2023 End: 09-27-2023 Emergency department patient visit VIDEO SOFTWARE ENGINEER-C Nataly Spasic Work Phone: [facility] Work Phone: Start: 08-20-2023 End: 08-21-2023 Emergency department patient visit VIDEO SOFTWARE ENGINEER-C Nataly Spasic Work Phone: [facility] Work Phone: Start: 08-03-2023 End: 08-03-2023 ambulatory VIDEO SOFTWARE ENGINEER-C Nataly Spasic Work Phone: [facility] Work Phone: Start: 08-03-2023 End: 08-03-2023 Departed Referred VIDEO SOFTWARE ENGINEER-C Nataly Spasic Work Phone: [facility] Start: 03-17-2023 End: 03-17-2023 ambulatory PHYSICIAN NO [facility] Work Phone: Start: 03-17-2023 End: 03-17-2023 Patient encounter procedure PHYSICIAN NO [facility] [place] Work Phone: Start: 03-04-2023 End: 03-04-2023 ambulatory PHYSICIAN NO [facility] Work Phone: Start: 03-04-2023 End: 03-04-2023 Departed Referred PHYSICIAN NO [facility] Start: 02-13-2023 End: 02-13-2023 Evaluation and management of inpatient VIDEO SOFTWARE ENGINEER-C Nataly Spasic Work Phone: [facility] [place] Work Phone: Start: 02-01-2023 End: 02-01-2023 ambulatory VIDEO SOFTWARE ENGINEER-C Nataly E Spasic Work Phone: [facility] Work Phone: Start: 02-01-2023 End: 02-01-2023 Patient encounter procedure VIDEO SOFTWARE ENGINEER-C Nataly Spasic Work Phone: [facility]-3 [facility] Labor - O/P Start: 01-30-2023 End: 01-31-2023 ambulatory VIDEO SOFTWARE ENGINEER-C Nataly E Spasic Work Phone: [facility] Work Phone: Start: 01-30-2023 End: 01-31-2023 Patient encounter procedure VIDEO SOFTWARE ENGINEER-C Nataly Spasic Work Phone: [facility]3 [facility] Labor - O/P Start: 01-22-2023 End: 01-22-2023 ambulatory VIDEO SOFTWARE ENGINEER-C Nataly E Spasic Work Phone: [facility] Work Phone: Start: 01-22-2023 End: 01-22-2023 Patient encounter procedure VIDEO SOFTWARE ENGINEER-C Nataly Spasic Work Phone: [facility]-3 [facility] Labor - O/P Start: 01-21-2023 End: 01-21-2023 ambulatory VIDEO SOFTWARE ENGINEER-C Nataly E Spasic Work Phone: [facility] Work Phone: Start: 01-21-2023 End: 01-21-2023 Patient encounter procedure VIDEO SOFTWARE ENGINEER-C Nataly Spasic Work Phone: [facility]-3 [facility] Labor - O/P Start: 01-05-2023 End: 01-05-2023 ambulatory VIDEO SOFTWARE ENGINEER-C Nataly E Spasic Work Phone: [facility] Work Phone: Start: 01-05-2023 End: 01-05-2023 Departed Referred VIDEO SOFTWARE ENGINEER-C Nataly Spasic Work Phone: [facility] [place] Work Phone: Start: 12-22-2022 End: 12-22-2022 ambulatory VIDEO SOFTWARE ENGINEER-C Nataly E Spasic Work Phone: [facility] Work Phone: Start: 12-22-2022 End: 12-22-2022 Patient encounter procedure VIDEO SOFTWARE ENGINEER-C Nataly Spasic Work Phone: [facility] [place] Work Phone: Start: 12-08-2022 End: 12-08-2022 ambulatory VIDEO SOFTWARE ENGINEER-C Nataly E Spasic Work Phone: [facility] Work Phone: Start: 12-08-2022 End: 12-08-2022 Departed Referred VIDEO SOFTWARE ENGINEER-C Nataly Spasic Work Phone: [facility] [place] Work Phone: Start: 12-03-2022 End: 12-03-2022 ambulatory VIDEO SOFTWARE ENGINEER-C Nataly E Spasic Work Phone: [facility] Work Phone: Start: 12-03-2022 End: 12-03-2022 Departed Referred VIDEO SOFTWARE ENGINEER-C Nataly Spasic Work Phone: [facility] Start: 12-01-2022 End: 12-01-2022 Emergency department patient visit VIDEO SOFTWARE ENGINEER-C Nataly Spasic Work Phone: [facility]-Emergency Room Work Phone: Start: 11-21-2022 End: 11-21-2022 ambulatory VIDEO SOFTWARE ENGINEER-C Nataly E Spasic Work Phone: [facility] Work Phone: Start: 11-21-2022 End: 11-21-2022 Patient encounter procedure VIDEO SOFTWARE ENGINEER-C Nataly Spasic Work Phone: [facility] [place] [facility] - O/P Start: 11-20-2022 End: 11-20-2022 ambulatory VIDEO SOFTWARE ENGINEER-C Nataly E Spasic Work Phone: [facility] Work Phone: Start: 11-20-2022 End: 11-20-2022 Patient encounter procedure VIDEO SOFTWARE ENGINEER-C Nataly Spasic Work Phone: [facility] Labor - O/P Start: 11-19-2022 End: 11-19-2022 ambulatory VIDEO SOFTWARE ENGINEER-C Nataly E Spasic Work Phone: [facility] Work Phone: Start: 11-19-2022 End: 11-19-2022 Patient encounter procedure VIDEO SOFTWARE ENGINEER-C Nataly Spasic Work Phone: [facility] Labor - O/P Start: 07-13-2022 End: 07-14-2022 ambulatory YNES HARDEN . Facility:[facility] Start: 06-23-2022 End: 06-23-2022 ambulatory VIDEO SOFTWARE ENGINEER-C Nataly E Spasic Work Phone: [facility] Work Phone: Start: 06-23-2022 End: 06-23-2022 Patient encounter procedure VIDEO SOFTWARE ENGINEER-C Nataly Spasic Work Phone: [facility] Work Phone: Start: 06-16-2022 End: 06-16-2022 Departed Referred VIDEO SOFTWARE ENGINEER-C Nataly Spasic Work Phone: [facility] Start: 06-04-2022 End: 06-04-2022 ambulatory VIDEO SOFTWARE ENGINEER-C Nataly E Spasic Work Phone: [facility] Work Phone: Start: 06-04-2022 End: 06-04-2022 Patient encounter procedure VIDEO SOFTWARE ENGINEER-C Nataly Spasic Work Phone: [facility] [place] Work Phone: Start: 06-03-2022 End: 06-03-[address] SHARMILA BAIG . Facility:[facility] Start: 05-28-2022 End: 05-28-2022 ambulatory VIDEO SOFTWARE ENGINEER-C Nataly Toure Work Phone: [facility] Work Phone: Start: 05-28-2022 End: 05-28-2022 Departed Referred VIDEO SOFTWARE ENGINEER-C Nataly Toure Work Phone: [facility] [facility] [facility] Start: 03-15-2022 End: 03-16-2022 ambulatory CORRINA DHALIWAL Facility:H1 Start: 10-18-2021 End: 10-18-2021 Evaluation and management of inpatient DO Obdulia Oneil Work Phone: [facility] Labor and Delivery Start: 10-16-2021 End: 10-16-2021 Departed Referred DO Obdulia Oneil Work Phone: [facility] [place] Start: 08-31-2021 End: 08-31-[address] CAMACHO HERNANDEZ . Facility: Start: 08-08-2021 End: 08-08-2021 ambulatory CORRINA DHALIWAL Facility:H1 Start: 07-21-2021 End: 07-21-2021 Patient encounter procedure DO Obdulia Oneil Work Phone: [facility] [place] Start: 08-03-2018 End: 08-04-2018 Patient encounter procedure SHARLA HICKS Facility:[facility] Procedures Date Procedure Procedure Detail Performing Clinician Start: 06-28-2024 Antibody screen NI CARROLL Comment on above: Performed By: #### T SC #### [facility] ([facility]) [address] [place] [address] VIR Start: 06-26-2024 TB UA (CLEAN/CATCH) TOMBSTONE ERECTOR/MICRO IF IND. Camacho Hernandez DO Work Phone: Start: 06-15-2024 Urnls dip stick/tabl et rgnt non-auto w/o micrscp Riya Alexander VIDEO SOFTWARE ENGINEER Work Phone: Start: 06-01-2024 Urnls dip stick/tabl et rgnt non-auto w/o micrscp Camacho Hernandez DO Work Phone: Start: 05-29-2024 Iadna streptococcus group a amplified probe tq Gopal Crouch DO Work Phone: Start: 05-25-2024 ALL CBC WITH AUTO DIFF Camacho Mary DO Work Phone: Start: 05-04-2024 Urnls dip stick/tabl et rgnt non-auto w/o micrscp Camacho Mary DO Work Phone: Start: 04-14-2024 TBH UA (CLEAN/CATCH) TOMBSTONE ERECTOR/MICRO IF IND. Camacho Mary DO Work Phone: [...] Start: 10-07-2023 Diagnostic radiograp hy of abdomen VIDEO SOFTWARE ENGINEERPraveena Jerniganc Work Phone: Start: 10-07-2023 Ultrasonography of liver VIDEO SOFTWARE ENGINEER-C Nataly Toure Work Phone: Start: 10-07-2023 US scan of thyroid VIDEO SOFTWARE ENGINEER-C Nataly Toure Work Phone: Start: 09-26-2023 CT of lumbar spine w ithout contrast VIDEO SOFTWARE ENGINEER-C Nataly Toure Work Phone: Start: 09-26-2023 Urine culture VIDEO SOFTWARE ENGINEER-C Andrez Toure Work Phone: Start: 02-13-2023 Urine culture PHYSICIAN NO FAMILY Start: 02-01-2023 Urine culture VIDEO SOFTWARE ENGINEER-C Andrez Toure Work Phone: Start: 01-05-2023 Streptococcus agalac tiae culture VIDEO SOFTWARE ENGINEER-C Nataly Toure Work Phone: Start: 12-01-2022 Plain chest X-ray VIDEO SOFTWARE ENGINEER-C Nataly Toure Work Phone: Start: 12-01-2022 Respiratory Panel (PCR) VIDEO SOFTWARE ENGINEER-C Nataly Toure Work Phone: Start: 11-20-2022 Ultrasound scan - obstetric VIDEO SOFTWARE ENGINEER-C Nataly Toure Work Phone: Start: 06-04-2022 US scan of gallbladder VIDEO SOFTWARE ENGINEER-C Nataly Toure Work Phone: Start: 08-03-2018 Anes [...] Td Vaccines (5 - Td or Tdap) [facility] Start: 04-06-2027 Screening for malign ant neoplasm of cervix Pap Smear [facility] Start: 06-30-2025 Tobacco Screening Tobacco Screening [facility] Start: 06-28-2025 Adult BMI Screening Adult BMI Screen ing [facility] Start: 04-13-2025 Adult BMI Screening Adult BMI Screen ing [facility] Start: 04-13-2025 Tobacco Screening Tobacco Screening [facility] Start: 04-13-2025 End: 04-13-2025 US MFM with or without consult US MFM with or without consult Imaging Routine History of delivery, currently Expected: 04/13/2025 (Approximate), Expires: 04/13/2025 [facility] Work Phone: Comment on above: Expected: 04/13/2025 (Approximate), Expires: 04/13/2025 Start: 10-16-[address] [facility] Start: 08-25-2024 End: 08-25-2024 Clinical Support 08/25/2024 9:40 AM EDT Clinical Support [facility] [address] [place] [phone] [facility] Start: 07-06-2024 End: 07-06-2024 Patient encounter procedure 07/06/2024 11:50 AM EDT Routine [facility] [address] [place] [phone] Camacho Hernandez, DO [address] [place] [address] [facility] Start: 06-29-2024 End: 06-29-2024 Professional / ancillary services management 06/29/2024 9:00 AM EDT Ancillary Procedure [facility] [address] [place] [phone] [facility] Start: 06-15-2024 End: 06-15-2025 Measurement of glucose 3 hours after glucose challenge for glucose tolerance test Glucose tolerance, 3 hours Lab Routine Elevated glucose tolerance test Expected: 06/15/2024 (Approximate), Expires: 06/15/2025 [facility] Work Phone: Comment on above: Expected: 06/15/2024 [...] EDT Ancillary Procedure [facility] [address] [place] [address] [facility] Start: 06-01-2024 End: [...] AM EDT Routine [facility] [address] [facility] [place] [phone] Camacho Hernandez, [address] [place] [address] [facility] Start: 06-01-2024 End: 06-01-2024 Professional / ancillary services management 06/01/2024 9:00 AM EDT Ancillary Procedure [facility] [address] [place] [phone] [facility] Start: 05-09-2024 End: 05-09-2024 Patient encounter procedure 05/09/2024 11:15 AM EDT Appointment [facility] - Ultrasound [address] [place] [address] [facility] Start: 05-04-2024 End: 05-04-2025 CBC panel - Blood by Automated count CBC Lab Routine Diabetes mellitus screening Expected: 05/04/2024 (Approximate), Expires: 05/04/2025 [facility] Work Phone: Comment on above: Expected: 05/04/2024 (Approximate), Expires: 05/04/2025 Start: 05-04-2024 End: 05-04-2025 Measurement of glucose 1 hour after glucose challenge for glucose tolerance test Glucose tolerance, 1 hour Lab Routine Diabetes mellitus screening Expected: 05/04/2024 (Approximate), Expires: 05/04/2025 [facility] Comment on above: Expected: 05/04/2024 (Approximate), Expires: 05/04/2025 Start: 05-04-2024 End: 05-04-2025 US Pelvis transvaginal US OB transvaginal Imaging Routine Short cervix, antepartum Expected: 05/04/2024, Expires: 05/04/2025 [facility] Work Phone: Comment on above: Expected: 05/04/2024 , Expires: 05/04/2025 Start: 05-04-2024 End: 05-04-2024 Patient encounter procedure 05/04/2024 11:10 AM EDT Office Visit [facility] [address] [place] [phone] Camacho Hernandez DO [address] [place] [address] [facility] Start: 05-02-2024 End: 05-02-2024 Patient encounter procedure 05/02/2024 9:15 AM EDT Appointment [facility]ound [address] [place] [phone] [facility] Start: 04-13-2024 End: 04-13-2024 Patient encounter procedure [facility] US Imaging Start: 04-06-2024 End: 04-06-2025 [...] gestational diabetes Expected: 03/09/2024 (Approximate), Expires: 03/09/2025 [facility] Comment on above: Expected: 03/09/2024 (Approximate), Expires: 03/09/2025 Start: 03-09-2024 End: 03-09-2025 US Pelvis transvaginal US OB transvaginal Imaging Routine History of delivery, currently Expected: 03/09/2024, Expires: 03/09/2025 [facility] Comment on above: Expected: 03/09/2024 [...] gestational age Expected: 02/03/2024 (Approximate), Expires: 02/02/2025 [facility] Work Phone: Comment on above: Expected: 02/03/2024 (Approximate), Expires: 02/02/2025 Start: 02-03-2024 End: 02-02-2025 Drugs of abuse panel - Urine by Screen method Rapid drug screen, urine Lab Routine , unspecified gestational age Encounter for supervision of normal first in first trimester Expected: 02/03/2024 (Approximate), Expires: 02/02/2025 [facility] Comment on above: Expected: 02/03/2024 (Approximate), Expires: 02/02/2025 Start: 02-03-2024 End: 02-02-2025 US Pelvis transvaginal US OB transvaginal Imaging Routine Missed menses Expected: 02/03/2024 (Approximate), Expires: 02/02/2025 [facility] Comment on above: Expected: 02/03/2024 (Approximate), Expires: 02/02/2025 Start: 10-17-2023 COVID-19 Vaccine ( season) COVID-19 Vaccine ( season) [facility] Start: 10-17-[address] [facility] Start: 09-26-2023 CT Lumbar spine WO contrast [facility] Start: 09-26-2023 CT of lumbar spine w ithout contrast CT lumbar spine wo con [facility] Start: 09-26-2023 Bacteria identified in Urine by Culture [facility] Start: 08-20-2023 [facility] Start: 02-14-2023 [facility] Start: 02-13-2023 End: 02-13-2023 [facility] Start: 02-13-2023 Bacteria identified in Urine by Culture [facility] Start: 02-13-2023 Delivery of Products of Conception, External Approach Delivery of Products of Conception, External Approach [facility] Start: 02-13-2023 Drainage of Amniotic Fluid, Therapeutic from Products of Conception, Via Natural or Artificial Opening Drainage of Amniotic Fluid, Therapeutic from Products of Conception, Via Natural or Artificial Opening [facility] Start: 02-13-2023 Hospital admission [facility] Start: 02-13-2023 Hospital admission [facility] Start: 02-13-2023 End: 02-13-2023 [facility] Start: 02-01-2023 [facility] Start: 02-01-2023 Hospital admission [facility] Start: 02-01-2023 Bacteria identified in Urine by Culture [facility] Start: 01-31-2023 [facility] Start: 01-30-2023 Hospital admission [facility] Start: 01-22-2023 [facility] Start: 01-21-2023 [facility] Start: 01-05-2023 Group B Streptococcu s Culture Group B Streptococcus Culture [facility] Start: 12-01-2022 Respiratory Panel (PCR) Respiratory Panel (PCR) [facility] Start: 11-21-2022 [facility] Start: 11-20-2022 [facility] Start: 11-20-2022 Hospital admission [facility] Start: 11-19-2022 [facility] Start: 11-19-2022 Hospital admission [facility] Start: 11-19-2022 [facility] Start: 10-18-2021 End: 10-18-2021 [facility] Work Phone: Start: 10-18-2021 Hospital admission [facility] Work Phone: Start: 2020 Screening for malign ant neoplasm of cervix Pap Smear [facility] Start: 02-16-2020 DTaP,Tdap and Td Vac cines (2 - Td or Tdap) DTaP,Tdap and Td Vaccines (2 - Td or Tdap) [facility] Start: 2017 Adult BMI Follow Up Plan Adult BMI Follow Up Plan [facility] Start: 2017 Adult BMI Screening Adult BMI Screen ing [facility] Start: 2011 Depression Screening Depression Scre ening [facility] Start: 2011 Tobacco Screening Tobacco Screening [facility] Bacteria identified in Urine by Culture [facility] Bacteria identified in Urine by Culture Urine culture Microbiology Routine Missed menses Ordered: 02/03/2024 [facility] Comment on above: Ordered: 02/03/2024 CBC W Auto Different ial panel - Blood CBC and differential Lab Routine Missed menses , unspecified gestational age Ordered: 02/03/2024 [facility] Comment on above: Ordered: 02/03/2024 CHLAMYDIA TRACHOMATI S (GENITO/STI) CHLAMYDIA TRACHOMATIS (GENITO/STI) Lab Routine STD exposure Vaginal discharge Ordered: 04/06/2024 [facility] Comment on above: Ordered: 04/06/2024 Cytology Cervical or vaginal smear or scraping study Pap Smear Pathology and Cytology Routine Well woman exam with routine gynecological exam Ordered: 04/06/2024 [facility] Comment on above: Ordered: 04/06/2024 Glucose measurement estimated from glycated hemoglobin [facility] Hemoglobin A1c/Hemoglobin.total in Blood [facility] Hemoglobin A1c/Hemoglobin.total in Blood Hemoglobin A1c Lab Routine Missed menses , unspecified gestational age Ordered: 02/03/2024 [facility] Comment on above: Ordered: 02/03/2024 Hepatitis B virus burch rface Ag [Presence] in Serum or Plasma by Immunoassay Hepatitis B surface antigen Lab Routine Missed menses , unspecified gestational age Ordered: 02/03/2024 [facility] Comment on above: Ordered: 02/03/2024 Hepatitis C virus Ab [Presence] in Serum or Plasma by Immunoassay Hepatitis C antibody Lab Routine Missed menses , unspecified gestational age Ordered: 02/03/2024 [facility] Comment on above: Ordered: 02/03/2024 HIV-1/HIV-2 antigen/antibody combination immunoassay HIV-1 and HIV-2 antibodies Lab Routine Missed menses , unspecified gestational age Ordered: 02/03/2024 [facility] Comment on above: Ordered: 02/03/2024 Insulin [Units/volum e] in Serum or Plasma [facility] Insulin [Units/volum e] in Serum or Plasma [facility] Insulin [Units/volum e] in Serum or Plasma [facility] Neisseria gonorrhoea e DNA [Presence] in Unspecified specimen by SVETLANA with probe detection Neisseria gonorrhea DNA probe, direct Lab Routine STD exposure Vaginal discharge Ordered: 04/06/2024 [facility] Comment on above: Ordered: 04/06/2024 Patient Education [facility] Work Phone: Patient referral [facility] Work Phone: Reagin Ab [Presence] in Serum by RPR [facility] Work Phone: Reagin Ab [Presence] in Serum by RPR [facility] Reagin Ab [Presence] in Serum by RPR RPR Lab Routine Missed menses , unspecified gestational age Ordered: 02/03/2024 [facility] Comment on above: Ordered: 02/03/2024 Respiratory pathogen s DNA and RNA panel - Nasopharynx by SVETLANA with non-probe detection [facility] Rubella antibody, IgG Rubella an tibody, IgG Lab Routine Missed menses , unspecified gestational age Ordered: 02/03/2024 [facility] Comment on above: Ordered: 02/03/2024 Streptococcus agalac tiae [Presence] in Unspecified specimen by Organism specific culture [facility] Streptococcus pyogen es DNA [Identifier] in Unspecified specimen by SVETLANA with probe detection STREP DNA PROBE Point of Care Testing Routine Pharyngitis, unspecified etiology 05/29/2024 12:45 PM EDT [facility] Work Phone: SURESWAB(R) ADVANCED VAGINITIS PLUS, TMA SURESWAB(R) ADVANCED VAGINITIS PLUS, TMA Pathology and Cytology Routine STD exposure Vaginal discharge Ordered: 04/06/2024 [facility] Work Phone: Comment on above: Ordered: 04/06/2024 Thyroperoxidase Ab [Units/volume] in Serum or Plasma [facility] Thyrotropin [Units/v olume] in Serum or Plasma [facility] Thyrotropin [Units/v olume] in Serum or Plasma TSH Lab Routine , unspecified gestational age Encounter for supervision of normal first in first trimester Ordered: 02/03/2024 [facility] Comment on above: Ordered: 02/03/2024 Thyroxine (T4) free index in Serum or Plasma by calculation [facility] Thyroxine measurement [facility] Triiodothyronine (T3 ) [Mass/volume] in Serum or Plasma [facility] Triiodothyronine res in uptake (T3RU) in Serum or Plasma [facility] Immunizations Immunization Date Immunization Notes Care Provider Fa cility 11-21-2023 influenza virus vaccine, unspecified formulation Tai Chapman MD Work Phone: [facility] 04-09-2023 influenza virus vaccine, unspecified formulation [facility] Nurse [facility] 02-13-2023 tetanus toxoid, reduced diphtheria toxoid, and acellular pertussis vaccine, adsorbed VIDEO SOFTWARE ENGINEER-C Nataly Toure Work Phone: [facility] 01-10-2021 influenza, injectable, quadrivalent, preservative free DO Obdulia Oneil Work Phone: [facility] 02-15-2010 tetanus toxoid, reduced diphtheria toxoid, and acellular pertussis vaccine, adsorbed [facility] Nurse [facility] Work Phone: 12-13-2008 novel [id number], preservative-free, injectable [facility] 12-13-2008 influenza virus vaccine, unspecified formulation Ni Carroll MD Work Phone: [facility] 07-21-2000 hepatitis B vaccine, pediatric or pediatric/adolescent dosage [facility] Nurse [facility] 07-21-2000 measles, mumps and rubella virus vaccine [facility] Nurse [facility] 1999 poliovirus vaccine, inactivated [facility] Nurse [facility] NEGATED: Highlighted row has not occurred!01-10-2021 tetanus toxoid, reduced diphtheria toxoid, and acellular pertussis vaccine, adsorbed DO Obdulia Oneil Work Phone: [facility] Payers Date Payer Category Payer Commercial Managed C are - POS [employer] [id number] 2024 Managed Care HMO (unspecified) [employer] [id number] 2024 Private Health Insurance [id number] 2023 Self-pay [id number] 2021 Medicaid (Managed Care) [employer] [id number] 1999 Unknown [id number] 2.16.840.1.122217.3.579. 2.647 1999 Unknown [id number] 2.16.840.1.620910.3.579. 2.593 1999 Unknown [id number] 2.16.840.1.696494.3.579. 2.593 1999 Unknown [id number] 2.16.840.1.288702.3.579. 2.593 1999 Unknown [id number] 2.16.840.1.441205.3.579. 2.593 1999 Unknown [id number] 2.16.840.1.668933.3.579. 2.593 1999 Unknown [id number] 2.16.840.1.094787.3.579. 2.1286 1999 Unknown [id number] 2.16.840.1.312961.3.579. 2.1286 1999 Unknown [id number] 2.16.840.1.543968.3.579. 2.1286 1999 Unknown [id number] 2.16.840.1.550931.3.579. 2.1286 1999 Unknown [id number] 2.16.840.1.920669.3.579. 2.1286 1999 Unknown [id number] 2.16.840.1.891931.3.579. 2.1286 1999 Unknown [id number] 2.16.840.1.601543.3.579. 2.1259 1999 Unknown [id number] 2.16.840.1.138974.3.579. 2.1259 1999 Unknown [id number] 2.16.840.1.424945.3.579. 2.1259 1999 Unknown [id number] 2.16.840.1.657273.3.579. 2.1259 1999 Unknown [id number] 2.16.840.1.410930.3.579. 2.1259 1999 Unknown [id number] 2.16.840.1.910916.3.579. 2.1259 1999 Unknown [id number] 2.16.840.1.245122.3.579. 2.1259 1999 Unknown [id number] 2.16.840.1.010569.3.579. 2.1259 1999 Unknown [id number] 2.16.840.1.245903.3.579. 2.1259 1999 Unknown [id number] 2.16.840.1.888194.3.579. 2.1259 1994 Medicaid HMO [id number] 1959 Private Health Insurance [id number] 1959 Unknown [id number] Unknown [place]/ [id number] Unknown [id number] 2.16840.1.945963.3.579. 2.531 Unknown [id number] 2.16840.1.326913.3.579. 2.531 Unknown [id number] 2.16840.1.424720.3.579. 2.531 Unknown [id number] 2.16840.1.525780.3.579. 2.531 Unknown [id number] 2.16840.1.216543.3.579. 2.531 Unknown [id number] 2.16840.1.868095.3.579. 2.531 Social History Date Type Detail Facility Start: 10-18-2021 End: 07-28-2022 Tobacco smoking status NHIS Never smoked tobacco (finding) [facility] Start: 2000 Sex Assigned At Female [facility] Start: 07-28-2022 End: 03-17-2024 Tobacco use and exposure Smokeless tobacco non-user [facility] Start: 02-03-2024 End: 09-19-2024 Alcoholic beverage intake Ex-drinker (finding) [facility] Start: 02-12-2023 End: 02-03-2024 History of Social function [facility] Start: 02-12-2023 End: 02-03-2024 Tobacco use panel [facility] Start: 08-24-2022 Education [facility] Start: 08-24-2022 Alcohol Comment none with preg sascha, Caffeine intake: none [facility] Start: 12-01-2023 [facility] Start: [facility] Sex assigned at Not on file [facility] Start: 04-29-2022 Gender identity Identifies as female gender (finding) [facility]care [facility] Start: 09-20-2014 [facility] NEGATED: Highlighted row [facility] Medical Equipment Procedure Code Equipment Code Equipment Origin al Text Equipment Identifier Dates 1 strip by In Vi tro route Daily Use in the morning prior to breakfast, 1 hour after each meal for a total of 4times daily. [id number] Start: 05-29-2024 End: 06-28-2024 1 each by In Vit ro route Daily Use to check FSBS four times daily [id number] Start: 05-29-2024 End: 06-28-2024 Goals Date Patient Goal Desired Activity /State Personal health goal Functional Status Date Assessment Result Facility 02-13-2023 Functional status Patient Not at Baseline [facility] Work Phone: Mental Status Date Assessment Result Facility 02-13-2023 Cognitive function Cognitive Sta tus Patient Not at Baseline [facility] Work Phone: Clinical Notes 10-18-2021 to 09-19-2024 [...] on 10-13-[address] Hernandez at [facility]. MEDICATIONS Current Outpatient Medications Medication Instructions acetaminophen-codeine [...] without obstruction 06/25/2022 History of delivery, currently ([facility]) 06/25/2022 Mixed anxiety and depressive disorder 06/25/2022 Other specified related conditions, third trimester ([facility]) 06/25/2022 Polyhydramnios affecting in third trimester ([facility]) 06/25/2022 Right upper quadrant pain 06/25/2022 Resolved Ambulatory Problems Diagnosis Date Noted Gestational diabetes mellitus (GDM), antepartum ([facility]) 06/25/2022 Past Medical History: Diagnosis Date Family history of cancer History of UTI Hx of thyroid disease (normal spontaneous vaginal delivery) ([facility]) Varicella zoster HISTORY PAST MEDICAL HISTORY SOCIAL HISTORY Past Medical History: Diagnosis Date Anxiety was using Lexapro weaned off with Family history of cancer History of UTI Hx of thyroid disease is not taking any medications. (normal spontaneous vaginal delivery) ([facility]) x2 Varicella zoster Social History Tobacco Use [...] nursing note reviewed. Exam conducted with a wet plant operator present. Vitals: Estimated body mass index is [...] reviewed, and patient is to proceed to [facility] OR. Follow Up: Patient is to follow up between 1-2 weeks post operative to assess proper healing and recovery from procedure. Documented by Deborah Steen LPN on behalf of: Camacho Hernandez DO documented in this encounter [facility] 08-09-2024 History of Presen t illness Narrative [...] without obstruction 06/25/2022 History of delivery, currently ([facility]) 06/25/2022 Mixed anxiety and depressive disorder 06/25/2022 Other specified related conditions, third trimester ([facility]) 06/25/2022 Polyhydramnios affecting in third trimester ([facility]) 06/25/2022 Right upper quadrant pain 06/25/2022 Resolved Ambulatory Problems Diagnosis Date Noted Gestational diabetes mellitus (GDM), antepartum ([facility]) 06/25/2022 Past Medical History: Diagnosis Date Family history of cancer History of UTI Hx of thyroid disease (normal spontaneous vaginal delivery) ([facility]) Varicella zoster HISTORY PAST MEDICAL HISTORY SOCIAL HISTORY Past Medical History: Diagnosis Date Anxiety was using Lexapro weaned off with Family history of cancer History of UTI Hx of thyroid disease is not taking any medications. (normal spontaneous vaginal delivery) ([facility]) x2 Varicella zoster Social History Tobacco Use [...] & PLAN ICD-10-CM 1. 6 weeks follow-up ([facility] Z39.2 Post Follow Up: Patient is doing [...] of: YNES Xiong documented in this encounter [facility] 07-24-2024 Miscellaneous Notes This note was copied from a baby's chart. Call as needed to schedule a visit outpatient with / specialists. [facility] [place] Location: [address] [place] [address] Clinics specialize in treating conditions such as: [...] returning to work documented in this encounter [facility] 07-24-2024 Obstetrics Note This note was copied from a baby's chart. Call as needed to schedule a visit outpatient with / specialists. [facility] [place] Location: [address] [place] [address] Clinics specialize in treating conditions such as: [...] Latching difficulties Pumping and/or returning to work [facility] 07-17-2024 Miscellaneous Notes This note was copied from a baby's chart. Met with mom at infant's bedside. States pumping continues to go well with stable supply and no complaints of pain or breakdown. No immediate questions or concerns, encouraged to call out for any other assistance. documented in this encounter [facility] 07-17-2024 Obstetrics Note This note was copied from a baby's chart. Met with mom at infant's bedside. States pumping continues to go well with stable supply and no complaints of pain or breakdown. No immediate questions or concerns, encouraged to call out for any other assistance. [facility] 07-04-2024 Miscellaneous Notes This note was copied from a baby's chart. Met with mother at 's bedside. States pumping continues to go well. She is now getting about 2 ounces every 2-3 hours. Denies pain with pump. No questions or concerns at this time. Encouraged to reach out for any assistance. documented in this encounter [facility] 07-04-2024 Obstetrics Note This note was copied from a baby's chart. Met with mother at infant's bedside. States pumping continues to go well. She is now getting about 2 ounces every 2-3 hours. Denies pain with pump. No questions or concerns at this time. Encouraged to reach out for any assistance. [facility] 06-30-2024 Miscellaneous Notes This note was copied [...] suction level that is comfortable for her. [place] basin at bedside and educated on proper [...] can clean your pump parts in a director of personnel or by hand in a wash basin [...] allow them to air-dry after each use. [employer] - Clean pump parts in a director of personnel, if they are director of personnel-safe. Be sure to place small items into a closed-top basket or mesh laundry bag. Add soap and, if possible, run the director of personnel using hot water and a heated drying cycle (or sanitizing setting). Remove from director of personnel with clean hands. If items are not [...] them every few days, either in a director of personnel with hot water and a heated drying cycle if they are director of personnel-safe, or by hand with soap and warm [...] using one of the following options. Check emissions inspector's instructions about whether items may be steamed or boiled. Steam: Use a microwave or plug-in steam system according to the emissions inspector s directions. Boil: Place disassembled items that [...] 1: Infant stable and able to tolerate Rohy-hg-Vesv care Interventions Baby No weight or gestational age limitations, following IVH protocol Follow Iolf-oi-Blyo Care Policy Length should be done as tolerated by the . At least once daily, increase as tolerated. Mother Put Idaa-fz-Ipkb at least once daily, when possible [facility] Obstetrics Note This note was copied [...] suction level that is comfortable for her. [place] basin at bedside and educated on proper [...] can clean your pump parts in a director of personnel or by hand in a wash basin [...] allow them to air-dry after each use. [employer] - Clean pump parts in a director of personnel, if they are director of personnel-safe. Be sure to place small items into a closed-top basket or mesh laundry bag. Add soap and, if possible, run the director of personnel using hot water and a heated drying cycle (or sanitizing setting). Remove from director of personnel with clean hands. If items are not [...] them every few days, either in a director of personnel with hot water and a heated drying cycle if they are director of personnel-safe, or by hand with soap and warm [...] using one of the following options. Check emissions inspector's instructions about whether items may be steamed or boiled. Steam: Use a microwave or plug-in steam system according to the emissions inspector s directions. Boil: Place disassembled items that [...] 1: Infant stable and able to tolerate Sqax-ao-Rmnt care Interventions Baby No weight or gestational age limitations, following IVH protocol Follow Erdo-vh-Cyve Care Policy Length should be done as tolerated by the infant. At least once daily, increase as tolerated. Mother Put Xeje-ur-Wtbb at least once daily, when possible [facility] 06-15-2024 History of Presen t illness Narrative [...] nursing note reviewed. Exam conducted with a wet plant operator present. Vitals: Estimated body mass index is [...] by Riya Alexander NP on behalf of: Ryia Alexander NP documented in this encounter [facility] 06-01-2024 History of Presen t illness Narrative [...] nursing note reviewed. Exam conducted with a wet plant operator present. Vitals: Estimated body mass index is [...] of Delivery: 08/23/24. Patient is setup with [facility] for Diabetic Education. Patient complaints of [...] Camacho Hernandez DO documented in this encounter [facility] 05-29-2024 History of Presen t illness Narrative Images from the original note were not included. [address] , [address] [facility], [address] P: [phone] F: [phone] HPI Historian of HPI: patient Rosette Alba [...] nursing note reviewed. Exam conducted with a wet plant operator present. Vitals: Estimated body mass index is [...] Camacho Hernandez DO documented in this encounter [facility] 04-13-2024 History of Presen t illness Narrative [...] Yes Have you been seen here at [facility] in a previous ? No Recent ER visits or hospitalizations? No Bring blood sugar log or meter with you today? (Please bring them with you for every visit at [facility]) N/A Flu vaccine (Dec-April)? Yes Any concerns that you would like me to mention to the provider today? No REASON FOR CONSULTATION: Previa ruled out. HISTORY OF PRESENT ILLNESS: Rosette Alba is a pleasant 24 y.o. G [id number]. at 20w4d due on Estimated Date of [...] and the other consultants, we search on [employer] and all the available care everywhere epic I did review all the imaging studies of the patient available on EMR, ordered by the primary care physician and the other financial services education consultant HABITS: Patient activity no restrictions, diet [...] 22 weeks and 23 weeks gestation at [facility] office. 2. InCase of short cervical length less than 25 mm patient will be a candidate for cerclage which will be performed through the [facility] office. 3. Placenta previa has resolved. 4. Routine care OB provider. DISPOSITION: At this point the patient is in complete care of her olive picker. Patient does have ultrasound scheduled with us Thank you for allowing me to participate in Rosette Alba . If there any questions please do not hesitate to contact us. Sincerely, NI CARROLL MD documented in this encounter [facility] 04-06-2024 History of Presen t illness Narrative [...] nursing note reviewed. Exam conducted with a wet plant operator present. Vitals: Estimated body mass index is [...] of: YNES Xiong documented in this encounter [facility] 03-09-2024 History of Presen t illness Narrative [...] nursing note reviewed. Exam conducted with a wet plant operator present. Vitals: Estimated body mass index is [...] meat, and stay away [facility]. Patient has been consulted regarding any further do's and don'ts of . Patient voiced understanding and all questions and concerns were answered. Discussed vaginal progesterone with patient and that medication will be stopped at 36 weeks gestation, and Celestone will be given at 32 weeks. Patient given early 1 hour gtt and MSAFP. Vaginal suppositories sent to [employer]. PVU Orders Placed This Encounter Procedures US OB transvaginal Alpha fetoprotein, maternal Glucose tolerance, 1 hour POCT urinalysis dipstick manually resulted Follow Up: Patient is to return in 4 weeks for routine OB appointment. Documented by Ce Curry LPN on behalf of: Camacho Hernandez DO documented in this encounter [facility] 02-03-2024 History of Presen t illness Narrative [...] meat, and stay away from [facility]. Patient has also been advised to not [...] Danay Velasquez MA documented in this encounter [facility] 02-13-2023 Procedure note [facility] 10-18-2021 History and physical note Note Date/Time October 18, 2021 1:40am [facility] EN[facility] [address] [place] [address] VALIDATION SOFTWARE FACILITATOR History & Physical Signed Patient: Rosette Alba MR#: [id number] : 2000 Acct:[id number] Age/Sex: 21 / F Adm Date: 2 Loc: Room: [address] [place] [address] Type: ADM IN Attending Dr: Jennie Smith MD Copies to: Jennie Smith MD-NOMS Obdulia Oneil DO~ Date of Service: 10/18/2021 Review of Systems Review of Systems All other systems reviewed & are negative unless noted below or in HPI OB ON LICENSE OF [facility] Medical History (Updated 10/18/21 @ 01:30 by Jennie Smith MD) Anxiety Depression Thyroid disease No meds at present time. UTI (urinary tract infection) Surgical History (Updated 01/08/21 @ 21:48 by Marie Wynn RN) History of placement of ear tubes VALIDATION SOFTWARE FACILITATOR Hx : 5 : 4 Livin EDC [...] % (Auto) 73.3, Lymph % (Auto) 17.0, Christian % (Auto) 8.1, Eos % (Auto) 1.3, Baso % (Auto) 0.3, Neut # (Auto) 7.4, Lymph # (Auto) 1.7, Christian # (Auto) 0.8, Eos # (Auto) 0.1, Baso # (Auto) 0.0, Nucleated RBC % (auto) 0.1 10/18/21 00:27: Urine Color Yellow, Urine Appearance Cloudy A, Urine pH 6.5, Ur Specific Lefor 1.020, Urine Protein Trace H, Urine Glucose [...] <Electronically signed by TELMA Smith> 10/18/21 0141 [facility] Work Phone: 1(757) 647-358909-03-2022 [facility] Diagnosis Onset Date Resolution Status 33 weeks gestation of [facility] Work Phone: evaluation noteNo assessment information available [facility] Work Phone: Evaluation note* Diagnosis Onset Date Resolution Status 35 weeks gestation of [facility] Work Phone: Evaluation note* Diagnosis Onset Date Resolution Status Iron deficiency anemia [facility] Work Phone: evaluation note* Diagnosis Missed menses , unspecified gestational age Encounter for supervision of normal first in first trimester documented in [facility] encounter [facility]* Diagnosis Second trimester state, incidental 16 weeks gestation of History of delivery, currently with history of pre-term labor Diabetes mellitus screening Screening for diabetes mellitus History of gestational diabetes Personal history of other genital system and obstetric disorders documented in this encounter [facility] HealthcareEvaluation note* Diagnosis Second trimester - Primary state, incidental 20 weeks gestation of STD exposure Well woman exam with routine gynecological exam Routine gynecological examination Vaginal discharge Leukorrhea, not specified as infective History of delivery, currently with history of pre-term labor URI, acute Acute upper respiratory infections of unspecified site documented in this encounter [facility] HealthcareEvaluation note* Diagnosis History of delivery, currently - Primary with history of pre-term labor documented in this encounter [facility]* Diagnosis delivery after section- Primary [facility] Diagnosis Short cervix, antepartum- Primary 24 weeks gestation of Second trimester state, incidental Diabetes mellitus screening Screening for diabetes mellitus Nonintractable headache, unspecified chronicity pattern, unspecified headache type documented in this encounter [facility] HealthcareEvaluation note* Diagnosis Strep throat- Primary Streptococcal sore throat Pharyngitis, unspecified etiology 27 weeks gestation of documented in this encounter [facility] HealthcareEvaluation note* Diagnosis Third trimester state, incidental 28 weeks gestation of Upper respiratory tract infection, unspecified type Chronic cluster headache, not intractable History of delivery, currently with history of pre-term labor Diet controlled gestational diabetes mellitus (GDM) in third trimester Polyhydramnios affecting in third trimester documented in this encounter [facility] HealthcareEvaluation note* Diagnosis Elevated glucose tolerance test- Primary Impaired glucose tolerance test 30 weeks gestation of Third trimester state, incidental documented in this encounter [facility] HealthcareEvaluation note* Diagnosis 6 weeks follow-up ([facility]) documented in this encounter [facility] HealthcareEvaluation note* Diagnosis Pre-op examination Request for sterilization documented in this encounter [facility] HealthcareHospital Discharge instructions Additional Instructions You have a respiratory panel is pending you will be called with any positive results Push fluids Humidifier may be beneficial Tylenol only for your discomfort Follow-up with your PCP and your VALIDATION SOFTWARE FACILITATOR call tomorrow for appointment Salt water gargles to soothe your throat Handwashing Rest Return here if any problems persist or worsen including abdominal pain, vaginal bleeding, increased pain, dyspnea or any other [facility] Work Phone: InstructionsNot on filedocumented in this encounter [facility] filedocumented in this encounter [facility]ructionsNot on filedocumented in this encounter [facility] System[facility]ructionsNot on filedocumented in this encounter [facility] SystemReason for referral (narrative)No reason for referral information [facility]Tr[facility] Work Phone: Summary Purpose Family History [...] and content) DATE CREATED AUTHOR 10/16/2018 [facility] DATE CREATED AUTHOR AUTHOR'S ORGANIZ ATION 07/24/2022 [facility] DATE CREATED AUTHOR AUTHOR'S ORGANIZ ATION 05/03/2024 [facility] DATE CREATED AUTHOR AUTHOR'S ORGANIZ ATION 07/16/2024 [facility] DATE CREATED AUTHOR AUTHOR'S ORGANIZ ATION 08/10/2024 [facility] dical Specialists EPIC DATE CREATED AUTHOR AUTHOR'S ORGANIZ ATION 09/06/2024 [facility] ysician Group Care Teams (unrecognized sec [...] Role Status Dates Nataly E Spasic , VIDEO SOFTWARE ENGINEER-C Attending Provider Active Team Status: Active Member Role Status Dates Nataly E Spasic , VIDEO SOFTWARE ENGINEER-C Primary Care Provider Active Team Status: Inactive Member Role Status Dates Nataly E Spasic , VIDEO SOFTWARE ENGINEER-C Primary Care Provider, Attending Provider Active Team Status: Inactive Member Role Status Dates Nataly E Spasic , VIDEO SOFTWARE ENGINEER-C Primary Care Provider Active Marcello Hudson DO Attending Provider Active Team Status: Inactive Member Role Status Dates Nataly E Spasic , VIDEO SOFTWARE ENGINEER-C Primary Care Provider Active Mary Kay Cantu DO Attending Provider Active Team Status: Inactive Member Role Status Dates Nataly E Spasic , VIDEO SOFTWARE ENGINEER-C Primary Care Provider Active Jennie Smith MD Attending Provider Active Team Status: Inactive Member Role Status Dates Nataly E Spasic , VIDEO SOFTWARE ENGINEER-C Primary Care Provider Active Staci Ortiz , CADE Emergency Provider Active Team Status: Inactive Member Role Status Dates Nataly E Shayleesic , VIDEO SOFTWARE ENGINEER-C Attending Provider Active Services [facility] Primary Care Provider Ac tive Team Status: Inactive Member Role Status Dates Radha Molina DO Attending Provider Active Team Status: Active Member Role Status Dates PHYSICIAN NO FAMILY Primary Care Provider Active Team Status: Inactive Member Role Status Dates Radha Molina DO Attending Provider Active PHYSICIAN NO FAMILY Primary Care Provider Active Team Status: Inactive Member Role Status Dates Nataly Brian Jerniganc , VIDEO SOFTWARE ENGINEER-C Primary Care Provider Active Radha Molina DO Attending Provider Active Team Status: Inactive Member Role Status Dates Nataly Brian Toure , VIDEO SOFTWARE ENGINEER-C Primary Care Provider Active Ede Way MD [...] Role Status Dates Nataly E Shayleesic , VIDEO SOFTWARE ENGINEER-C Primary Care Provider Active Start: January 21, 2023 End: January 21, 2023 Radha Molina DO Attending Provider Active S tart: January 21, 2023 End: January 21, 2023 Team Status: Inactive Member Role Status Dates Nataly Toure , VIDEO SOFTWARE ENGINEER-C Primary Care Provider Active Start: January 22, 2023 End: January 22, 2023 Radha Molina DO Attending Provider Active S tart: January 22, 2023 End: January 22, 2023 Team Status: Inactive Member Role Status Dates Nataly Toure , VIDEO SOFTWARE ENGINEER-C Primary Care Provider Active Start: January 30, 2023 End: January 31, 2023 Mary Kay Cantu DO Attending Provider Active Start: January 30, 2023 End: January 31, 2023 Team Status: Inactive Member Role Status Dates Nataly Toure , VIDEO SOFTWARE ENGINEER-C Primary Care Provider Active Start: February 01, 2023 End: February 01, 2023 Radha Molina DO Attending Provider Active S tart: February 01, 2023 End: February 01, 2023 Team Status: Inactive Member Role Status Dates Nataly Toure , VIDEO SOFTWARE ENGINEER-C Primary Care Provider Active Start: February 13, 2023 End: February 13, [address] MD Admit Provider, Atte nding Provider Active Start: February 13, 2023 End: February 13, 2023 Team Status: Inactive Member Role Status Dates Nataly Toure , VIDEO SOFTWARE ENGINEER-C Attending Provider Active Start: March 04, 2023 End: March 04, 2023 Team Status: Active Member Role Status Dates Services [facility] Primary Care Provider Ac tive Team Status: Inactive Member Role Status Dates Nataly Toure , VIDEO SOFTWARE ENGINEER-C Attending Provider Active Start: March 17, 2023 End: March 17, 2023 Services [facility] Primary Care Provider Ac tive Start: March 17, 2023 End: March 17, 2023 Team Status: Inactive Member Role Status Dates Nataly Toure , VIDEO SOFTWARE ENGINEER-C Attending Provider Active Start: August 03, 2023 End: August 03, 2023 Team Status: Inactive Member Role Status Dates Nataly Toure , VIDEO SOFTWARE ENGINEER-C Primary Care Provider Active Start: August 20, 2023 End: August 21, 2023 Carmelo Vinson DO Emergency Provider Active St art: August 20, 2023 End: August 21, 2023 Team Status: Inactive Member Role Status Dates Nataly Toure , VIDEO SOFTWARE ENGINEER-C Primary Care Provider Active Start: September 26, 2023 End: September 27, 2023 YNES Hensley-Anirudh Emergency Provider Active Start: September 26, 2023 End: September 27, 2023 Team Status: Inactive Member Role Status Dates Nataly Toure , VIDEO SOFTWARE ENGINEER-C Primary Care Provi emmanuel, Attending Provider Active Start: September 30, 2023 End: September 30, 2023 Team Status: Inactive Member Role Status Dates Nataly Brian Toure , VIDEO SOFTWARE ENGINEER-C Primary Care Provider Active Start: October 04, 2023 End: October 05, 2023 Carmelo Vinson DO Emergency Provider Active St art: October 04, 2023 End: October 05, 2023 Team Status: Inactive Member Role Status Dates Nataly Toure , VIDEO SOFTWARE ENGINEER-C Primary Care Provi emmanuel, Attending Provider Active Start: October 07, 2023 End: October 07, 2023 Team Status: Inactive Member Role Status Dates Nataly Toure , VIDEO SOFTWARE ENGINEER-C Primary Care Provi emmanuel, Referring Provider Active Start: October 20, 2023 End: October 20, 2023 Melania Arceo APRN Attending Provider Active Start: October End: October 20, 2023 Team Status: Active Member Role Status Dates Nataly Toure , VIDEO SOFTWARE ENGINEER-C Primary Care Provi emmanuel, Referring Provider Active Start: October 20, 2023 Melania Arceo APRN Attending Provider Active Start: October Emergency Medicine Relationship Specialty Start Date End Date Unallocated, Jaguar Chapa MD [facility] [address] [facility] [place] [address] PCP - General 06/29/22 Emergency Medicine Relationship Specialty Start Date End Date Unallocated, MD Jose Angel Costa [facility] [place] [address] PCP - General 06/29/22 Emergency Medicine Relationship Specialty Start Date End Date Unallocated, MD Jose Angel Costa [facility] [place] [address] PCP - General 06/29/22 Emergency Medicine Relationship Specialty Start Date End Date Unallocated, Jaguar Chapa MD [address] [place] [id number] PCP - General 06/29/22 Emergency Medicine Relationship Specialty Start Date End Date Tai Chapman MD [address] [place] [id number] PCP - General Family Medicine 02/24/18 Emergency Medicine Relationship Specialty Start Date End Date Unallocated, Jaguar Chapa MD [address] [place] [phone] PCP - General 06/29/22 Emergency Medicine Relationship Specialty Start Date End Date Unallocated, Jaguar Chapa MD [address] [place] [id number] PCP - General 06/29/22 Emergency Medicine Relationship Specialty Start Date End Date Unallocated, Jaguar Chapa MD [address] [place] [id number] PCP - General 06/29/22 Emergency Medicine Relationship Specialty Start Date End Date Tai Chapman MD [address] [place] [id number] PCP - General Family Medicine 02/24/18 Emergency Medicine Relationship Specialty Start Date End Date Tai Chapman MD [address] [place] [id number] PCP - General Family Medicine 02/24/18 Emergency Medicine Relationship Specialty Start Date End Date Unallocated, Jaguar Chapa MD [address] [place] [id number] PCP - General 06/29/22 Emergency Medicine Relationship Specialty Start Date End Date Unallocated, Jaguar Chapa MD [address] [facility] [place] [address] PCP - General 06/29/22 Emergency Medicine Relationship Specialty Start Date End Date Unallocated, Jaguar Chapa MD [address] [facility] [place] [address] PCP - General 06/29/22 Emergency Medicine Relationship Specialty Start Date End Date Unallocated, Jaguar Chapa MD [address] [place] [address] PCP - General 06/29/22 Emergency Medicine Relationship Specialty Start Date End Date Tai Chapman MD [address] [place] [id number] PCP - General Family Medicine 02/24/18 Emergency Medicine Relationship Specialty Start Date End Date Unallocated, Jaguar Chapa MD [address] [place] [address] PCP - General 06/29/22 Team Status: Inactive Member Role Status Dates Nataly Toure , VIDEO SOFTWARE ENGINEER-C Attending Provider Active Start: August 17, 2024 End: August 17, 2024 Emergency Medicine Relationship Specialty Start Date End Date Unallocated, Jaguar Chapa MD [address] [place] [address] [place] [address] PCP - General 06/29/22 Goals (unrecognized section [...] BE BASED ON THE PRIMARY CLINICAL RECORDS. [facility] [employer] [facility]. provides no warranty or guarantee of the accuracy or completeness of information in this document.
--- NOTE | 2024-10-13 10:15 | P.ON_ITS ---
Brief Operative Note Date of procedure: 10/13/24 Pre-op diagnosis general: desires permanent sterilization Post-op diagnosis: same as pre-op Procedure: NAME OF PROCEDURE: robotic assisted bilateral laparoscopic salpingectomy PROCEDURE: The patient was taken back to the Operating Room where she was given general anesthesia without difficulty. She was then prepped and draped in the normal sterile fashion after being placed in a dorsal lithotomy position. A wet sponge stick was placed into the patient's vagina. Attention was then turned to the patient's abdomen, where a scalpel was used to make a small infraumbilical incision. The S retractors were then used to dissect the underlying layers until the fascia could be seen. The fascia was then grasped with Diana clamps and tented up. A knife was then used to make a small incision to the fascia. The muscle was identified, at that time two sutures of #0 Vicryl on a GI needle was then used and placed through the fascia. the peritoneum was then identified and entered bluntly. The 10-4 Roopa was then placed into the patient's abdomen. This was confirmed with direct visualization of the bowel, using the laparoscope. The patient's abdomen was then insufflated using approximately 4 liters of CO2 gas. Survey of the patient's abdomen demonstrated ovaries were normal in appearance as well as both tubes and uterus. A second and third rt and lt lateral robotic ports which were 8 mm in size, was then placed after the skin incision was made under direct visualization . the robotic arms were engaged. The patient's tube on the patient's right side was identified and tented up using a grasper, the ligasure apparatus was then used to come across the mesosalpingx from the fimbriated end to the insertion site at the uterus, the tube was then amputated and removed in its entirety. This was done on the contralateral side. The tubes were the removed from the patients abdomen. Excellent hemostasis was noted. The lateral ports were then moved under direct visualization with excellent hemostasis. All instruments were removed from the patient's abdomen. The fascia was closed using the #0 Vicryl on GI needle. The skin was closed using 4-0 Vicryl subcuticularly. All instruments were removed from the patient's vagina as well. The patient was taken out of the dorsal lithotomy position and placed in the supine position and taken to recovery in stable condition. Sponge, lap and needle counts were correct x2. Anesthesia: RANDOLPH Surgeon: Camacho Hernandez Land Development Manager: Ariella Escoto Estimated blood loss (mL): 5 Pathology: other (tubes) Condition: stable Disposition: PACU Urinary Catheter Management Urinary Catheter Management Urethral: Cath placed during this visit: no
[2024-10-13] MEDS: PROMETHAZINE HCL 25 MG TABLET PO (13:08)
--- NOTE | 2024-10-13 13:26 | PC.NURSE ---
Anesthesia provider informed that Zofran and Phenergan not effective.
--- NOTE | 2024-10-13 14:20 | PC.NURSE ---
patient refused to get up to bathroom at this time afraid to vomit. will go in at 1440 to assist to get her up to urinate
--- NOTE | 2024-10-13 14:58 | PC.NURSE ---
Patient received Emed after all other anti nausea medications failed. Patient rested for about an hour and ambulated to the bathroom. Patient states the nausea med worked when we helped her up to the bathroom. When patient was walking back to the bay she was in she stated she was going to vomit again. Advised to breath in through nose and out mouth and sniff alcohol pad. Patient states the alcohol pad helped and nausea calmed down. Patient stated that nausea was better when rolling her to her car. She was just tired. Patient discharged in stable condition with nausea under control.
== END 2024-10-13 14:55 | disposition home or self-care (01) ==
PROVIDERS: Visit Provider Obstetrics & Gynecology
PROC: (CPT 840; principal; 2024-10-13 10:15)
DX: Z30.2 Encounter for sterilization (principal); Z90.49 Acquired absence of other specified parts of digestive tract; K21.9 Gastro-esophageal reflux disease without esophagitis; E03.9 Hypothyroidism, unspecified; R73.03 Prediabetes; F41.9 Anxiety disorder, unspecified; F32.A Depression, unspecified
CPT/HCPCS: 58661; 36415; 84702; 85025; 88302; J0131; J1100; J1171; J1453; J1885; J2003; J2250; J2371; J2405; J2704; J3010; Q0169